=== PATIENT | female | born 1970 | race Caucasian/White ===

== ENCOUNTER 2019-06-09 13:04 | Emergency (ER) | payer SELFPAY ==
[2019-06-09 13:05] VITALS: BP 169/73; PULSE 82; RESP 20; TEMP 37.1; O2SAT 98; BMI 37.5
--- NOTE | 2019-06-09 13:12 | NURSING ---
NO OLD EKGS
--- NOTE | 2019-06-09 14:12 | EKG12_ITS ---
Test Reason : Blood Pressure : / mmHG Vent. Rate : 078 BPM Atrial Rate : 078 BPM P-R Int : 172 ms QRS Dur : 074 ms QT Int : 370 ms P-R-T Axes : 053 070 053 degrees QTc Int : 421 ms Normal sinus rhythm Normal ECG Confirmed by COREY VALDEZ, CECILIA ([id number]), editor book STEPHANIE THOMPSON ([id number]) on 06/12/2019 1:49:40 PM Referred By: REJI Confirmed By:MAXIMO NICOLE MD
--- NOTE | 2019-06-09 14:12 | ED.VIS.CHEST ---
History of Present Illness Chief Complaint: Chest Pain Informant: Patient Onset: Weeks - 1 Activity at onset: Rest Timing: Intermittent, Lasts - minutes Quality: Heaviness Location: Left Chest Current Severity: Gone Maximum Severity: Moderate Associated Symptoms: Dyspnea, Cough - Chronic, unchanged. Negative for: Nausea, Vomiting, Diaphoresis, Fever, Lightheadedness, Palpitations Narrative: Patient states she has been under a lot of stress this past week and has been having chest discomfort off and on. It is usually left chest but it moves around. It is nonpleuritic. She has also been having a market amount of epigastric discomfort that occurs as soon as she swallows food. She has had gastritis versus a stomach ulcer in the past but never required an EGD, in the past week Zantac is helping that but she is taking it inconsistently. She denies any leg pain, swelling, history of DVT or PE, recent travel or hospitalization or surgery. She had a heart attack in the past, she had one stent placed and is no longer needing Brilinta just aspirin, and states this was similar discomfort when she was having that. No radiation into the jaw, neck, back, arms. - Past Medical History (1) Coronary artery disease Status: Chronic (2) Hypertension Status: Suspected Past Medical History - Allergies and Home Meds Allergies/Adverse Reactions: Allergies No Known Allergies Allergy (Verified 06/09/19 13:10) Surgical History: angioplasty - Coronary stent x1 Smoking Status: Current every day smoker Drugs: None Review of Systems General: Denies: Chills, Fever, Sweats Eyes: Denies: Visual changes - bilaterally, Diplopia ENT: Denies: Rhinorrhea, Sore throat Cardiovascular: Reports: Chest pain. Denies: Palpitations Respiratory: Reports: Dyspnea. Denies: Cough, Dyspnea on exertion, Orthopnea Gastrointestinal: Reports: Abdominal pain. Denies: Nausea, Vomiting, Diarrhea, Melena, Hematochezia Genitourinary: Denies: Dysuria, Hematuria, Frequency Musculoskeletal: Denies: Neck pain, Back pain, Swelling, Extremity Pain Skin: Denies: Rash, Wounds Neurological: Denies: Headache, Weakness, Numbness Psych: Reports: Anxiety. Denies: Suicidal thoughts Physical Exam Vital Signs/Narrative: Vital Signs Temp Pulse Resp BP Pulse Ox 06/09/19 13:05 98.7 F 82 20 H 169/73 H 98 Inital Vital Signs reviewed: Yes General: Well nourished, Well developed, No Acute Distress Head: Normocephalic, Atraumatic Eyes: Perrl, EOMI ENT: Moist mucous membranes, No rhinorrhea Neck: Supple, Nontender, No lymphadenopathy, No JVD Cardiovascular: Regular rate, Regular rhythm, No murmurs, Normal S1, Normal S2. Negative for: Tachycardia Respiratory: No distress, CTA bilaterally, Chest nontender Abdomen: Soft, Nontender, Nondistended, Normal bowel sounds Back: Nontender, Normal Inspection. Negative for: CVA tenderness Extremities: Nontender, No edema. Negative for: Calf Tenderness Skin: Normal color, No rash Neurological: Alert, Oriented x3, Cranial nerves II-XII grossly intact, Normal Strength, Normal Sensation Psychological: Normal affect, Normal Mood Diagnostic/Tx/Re-eval Laboratory Tests 06/09/19 06/09/19 Range/Units 13:30 13:30 WBC 4.8 (4.4-11.0) K/mm3 RBC 4.02 L (4.2-5.4) M/mm3 Hgb 8.3 L (12.0-15.0) g/dL Hct 29.0 L (37-47) % MCV 72.1 L (81-99) fL MCH 20.6 L (27.0-32.0) pg MCHC 28.6 L (32-36) g/dL RDW Std Deviation 48.8 H (35.1-43.9) fl RDW Coeff of Estella 18.8 H (11.6-14.6) % Plt Count 278 (150-450) K/mm3 MPV 10.3 (6.2-12.0) fl Immature Gran % (Auto) 0.200 (0.0-0.9) % Neut % (Auto) 50.6 (47-70) % Lymph % (Auto) 33.2 (19-41) % Warrick % (Auto) 7.7 (0-10) % Eos % (Auto) 7.1 H (0-5) % Baso % (Auto) 1.2 H (0-1) % Absolute Neuts (auto) 2.4 (2.0-7.7) X10^3/uL Absolute Lymphs (auto) 1.60 (0.83-4.51) X10^3/uL Absolute Nucleated RBC 0.00 (0-5) 10^3/uL Nucleated RBC % 0 (0-5) % Sodium 141 (136-145) mmol/L Potassium 4.2 (3.5-5.1) mmol/L Chloride 105 (98-107) mmol/L Carbon Dioxide 27.0 (21.0-32.0) mmol/L Anion Gap 9 (5-15) BUN 12 (7-18) mg/dL Creatinine 0.72 (0.55-1.02) mg/dL Estim Creat Clear Calc 92.92 ml/min Est GFR (MDRD) Af Amer 112 (>60) mL/min Est GFR (MDRD) Non-Af 92 (>60) mL/min BUN/Creatinine Ratio 16.8 (10-20) RATIO Glucose 108 H (74-106) mg/dL Calcium 9.0 (8.5-10.1) mg/dL Troponin I < 0.015 (<0.045) ng/mL - Rhythm Strip Rhythm Strip: Sinus Rhythm Rate: 75 Ectopy: None - EKG Initial EKG Interpretation: Sinus Rhythm, No Acute Injury Pattern - Normal EKG. Normal axis. Treatment: - - Patient already took her aspirin this morning. No treatment given in the emergency department since the patient has been pain-free. GINO Risk: H/O CAD, ASA within 7 days Score: 2 - Medical Decision Making Work-up is unremarkable, it does show significant anemia, but it is very microcytic. She has not been taking iron for a while, even though she did in the past. Her BUN is not high, so I do not suspect she is having upper GI bleeding, especially since she has no melena or hematemesis. I recommend taking twice daily Zantac or daily PPI, iron supplementation, and following up with her doctor. Her cardiac enzymes are negative and her EKG is normal at this time, and I think it is safe that she discharged home with follow-up. She is comfortable with that plan. ED Disposition - Plan for ED Patient: Disposition: Home or Assisted Living Diagnosis: Chest pain, unspecified, Microcytic hypochromic anemia, Gastritis Instructions: CHEST PAIN, Uncertain Cause, ANEMIA, Iron Deficiency (Adult), GASTRITIS vs. ULCER Referrals: Meagan Weinstein NP-C [Primary Care Provider] - 3-5 Days
[2019-06-09 14:22] LABS: Absolute Neutrophil Count 2.4 X10^3/uL (2.0-7.7); Basophil# 0.06 X10^3/uL; Basophil% 1.2 % (0-1); Eosinophil# 0.34 X10^3/uL; Eosinophils% 7.1 % (0-5); Hemoglobin 8.3 g/dL (12.0-15.0); Lymphocyte % 33.2 % (19-41); Mean Corp Hgb Conc 28.6 g/dL (32-36); Mean Corpuscular Hgb 20.6 pg (27.0-32.0); Mean Corpuscular Volume 72.1 fL (81-99); Mean Platelet Vol. 10.3 fl (6.2-12.0); Monocyte# 0.37 X10^3/uL; Monocyte% 7.7 % (0-10); NRBC Flagged by Analyzer 0 % (0-5); Neutrophil # 2.44 X10^3/uL (2.7-7.7); Neutrophil % 50.6 % (47-70); Platelet Count 278 K/mm3 (150-450); RBC Distribution Width CV 18.8 % (11.6-14.6); RBC Distribution Width SD 48.8 fl (35.1-43.9); Red Blood Count 4.02 M/mm3 (4.2-5.4); White Blood Count 4.8 K/mm3 (4.4-11.0)
[2019-06-09 14:36] LABS: Anion Gap 9 (5-15); BUN 12 mg/dL (7-18); BUN/Creat Ratio 16.8 RATIO (10-20); Chloride 105 mmol/L (98-107); Creatinine, Serum 0.72 mg/dL (0.55-1.02); EST Glomerular Filtration Rate 92 mL/min (>60); Est Glom Filt Rate - Afr Amer 112 mL/min (>60); Estimated Creatinine Clearance 92.92 ml/min; Glucose 108 mg/dL (74-106); Potassium 4.2 mmol/L (3.5-5.1); Sodium Level 141 mmol/L (136-145)
[2019-06-09 14:37] VITALS: BP 114/54; PULSE 68; RESP 18
[2019-06-09 15:23] VITALS: BP 117/65; PULSE 68; RESP 18; O2SAT 98
== END 2019-06-09 15:24 | disposition home or self-care (01) ==
PROVIDERS: Emergency Provider Emergency Medicine; Family Provider Nurse Practitioner Family; PCP Nurse Practitioner Family
DX: R07.9 Chest pain, unspecified (principal); K29.70 Gastritis, unspecified, without bleeding; D50.9 Iron deficiency anemia, unspecified; I25.2 Old myocardial infarction; I25.10 Atherosclerotic heart disease of native coronary artery without angina pectoris; I10 Essential (primary) hypertension; F17.200 Nicotine dependence, unspecified, uncomplicated; Z95.5 Presence of coronary angioplasty implant and graft; Z79.82 Long term (current) use of aspirin
CPT/HCPCS: 80048; 84484; 85025; 93005; 99283; A4216

== ENCOUNTER 2021-03-28 13:47 | Observation (INO) | payer SELFPAY ==
[2021-03-28 13:50] VITALS: BP 137/71; PULSE 76; RESP 20; TEMP 36.9; O2SAT 96; BMI 42.4
--- NOTE | 2021-03-28 14:06 | EKG12_ITS ---
Test Reason : Blood Pressure : / mmHG Vent. Rate : 068 BPM Atrial Rate : 068 BPM P-R Int : 198 ms QRS Dur : 072 ms QT Int : 398 ms P-R-T Axes : 053 072 063 degrees QTc Int : 423 ms Normal sinus rhythm Normal ECG Confirmed by ELLYN VALDEZ, CLOTILDE ([id number]), movie editor STEPHANIE THOMPSON ([id number]) on 04/01/2021 9:29:24 AM Referred By: Confirmed By:CLOTILDE RAGLAND MD
--- NOTE | 2021-03-28 14:06 | RAD_ITS ---
STUDY: X-RAY CHEST REASON FOR EXAM: Female, 50 years old. Chest pain TECHNIQUE: Single AP portable view of the chest. COMPARISON: None. FINDINGS: EKG electrodes are seen. The lungs are clear and expanded. There is no demonstrated pleural abnormality. Normal size heart. Normal mediastinum and eileen. Normal visualized pulmonary arteries. Normal visualized aortic arch and descending thoracic aorta. Normal visualized thoracic spine. Normal visualized ribs, clavicles, and shoulders. There is no demonstrated abnormality of the visualized soft tissue structures of the upper abdomen. RAD/Chest 1 View (Portable) IMPRESSION: Normal x-ray examination of the chest. Electronically Signed: Daljit Canales MD at 14:25 EDT , Service support ,
--- NOTE | 2021-03-28 14:15 | EDS_ITS ---
HPI History of Present Illness Chief Complaint: Chest Pain Informant: patient Narrative Narrative: Patient presents with chest pain, back pain and shortness of breath. This is been ongoing for 2 days. She started having pain between her shoulder blades and pain in her left jaw area. She then developed some mild chest tightness. She was concerned because she felt the similar symptoms when she had a heart attack a few years ago. She takes a daily aspirin but is not on any other antiplatelet medications. She does have 1 stent placed in her heart. She denies any fevers or cough. No leg swelling. Currently she states that her symptoms are improved. She also had some lightheadedness and felt like she was going to pass out as well. [facility] Medical History Chest pain Hypothyroidism Myocardial infarct Home Medications aspirin 81 mg PO DAILY@0800 06/09/19 [History Last Taken Unknown] ranitidine HCl 150 mg PO DAILY 06/09/19 [History Last Taken Unknown] Allergy/AdvReac Type Severity Reaction Status Date / Time No Known Allergies Allergy Verified 03/28/21 13:49 Surgical History History of coronary artery stent placement Social History Smoking Status: Current every day smoker ROS ROS ED Constitutional Constitutional ED: Denies chills or fever(s) Eyes Eyes: Denies blurry vision, change in vision or diplopia ENT ENT ED: Denies ear pain, rhinorrhea or sore throat Cardiovascular Cardiovascular: Reports chest pain Respiratory/Chest Respiratory/Chest: Reports dyspnea Gastrointestinal Gastrointestinal: Denies abdominal pain, diarrhea, nausea or vomiting Genitourinary Genitourinary ED: Denies dysuria, hematuria or urinary frequency Musculoskeletal Musculoskeletal: Reports back pain Integumentary Denies change in pigmentation or rash Neurologic Neurologic: Denies headache(s), numbness or weakness Psychiatric Psychiatric: Denies anxiety or depression Endocrine Endocrinology: Denies polydipsia or polyuria EXAM Physical Exam Const Vital Signs: 03/28/21 13:50 03/28/21 13:52 03/28/21 14:29 Temperature 98.5 F Temperature Source Oral Pulse Rate 76 Respiratory Rate 20 H Respiratory Effort Short of Breath Respiratory Pattern Normal Blood Pressure 137/71 H Blood Pressure Mean 93 Pulse Ox 96 Oxygen Delivery Method Room Air Nasal Cannula Positive well nourished and well developed General Appearance ED: well developed and NAD HEENT Reports moist mucous membranes normocephalic and atraumatic; Negative for tenderness Eyes PERRL and EOMs intact bilaterally Neck supple and no JVD Chest Wall Chest: Negative for tenderness Resp normal respiratory effort and clear to auscultation bilaterally Effort and Inspection: Negative for respiratory distress Cardio regular rate, regular rhythm and no murmurs Rate: regular rate Rhythm: regular rhythm GI soft to palpation, non-tender and non-distended Palpation: soft Back/Spine no CVA tenderness and no thoracic nor lumbar tenderness Cervical Spine: Negative for cervical spine tenderness Extremity normal to inspection and full ROM General Extremety ED: Negative for tenderness Neuro oriented x3, CN's II-XII intact bilaterally and no sensory deficits noted Sensorium / Orientation: awake and alert Motor Exam: strength 5/5 throughout Psych mental status grossly normal Skin no rashes or lesions noted Heart Score History: Moderately Suspicious ECG: Normal Age: >45 - <65 years Risk Factors: >/= 3 Risk Factors or History of CAD Troponin: </= Normal Limit Score: 4 MDM MDM MDM Narrative Medical decision making narrative: The patient's EKG was sinus rhythm with no ischemic changes. Laboratory studies are unremarkable except for her troponin is 0.023. This is still within the normal range but not completely negative like her last blood draw. With her history, her heart score is 4. I discussed with the hospitalist and we will leave the patient for further evaluation Lab Data Attestation: I reviewed the patient's lab results. Labs: Laboratory Results - last 24 hr 03/28/21 03/28/21 13:55 13:55 WBC 5.7 RBC 5.68 H Hgb 14.8 Hct 47.9 H MCV 84.3 MCH 26.1 L MCHC 30.9 L RDW Std Deviation 46.5 H RDW Coeff of Estella 15.1 H Plt Count 274 MPV 9.9 Immature Gran % (Auto) 0.200 Neut % (Auto) 61.5 Lymph % (Auto) 24.4 Archer % (Auto) 6.9 Eos % (Auto) 5.8 H Baso % (Auto) 1.2 H Absolute Neuts (auto) 3.5 Absolute Lymphs (auto) 1.38 Nucleated RBC % 0 Sodium 136 Potassium 4.4 Chloride 105 Carbon Dioxide 28.0 Anion Gap 3 L BUN 14 Creatinine 0.64 Estim Creat Clear Calc 90.81 Est GFR (MDRD) Af Amer 126 Est GFR (MDRD) Non-Af 105 BUN/Creatinine Ratio 21.9 H Glucose 102 Calcium 9.2 Troponin I 0.023 Radiography Chest X-Ray - ED: 1 View, Read by ED Physician, Read by Radiologist and No Acute Disease Diagnostic Testing: Radiology Impression Chest X-Ray 03/28/21 14:06 IMPRESSION: Normal x-ray examination of the chest. Electronically Signed: Daljit Canales MD at 14:25 EDT , Service support , EKG Initial EKG: Comments: Normal sinus rhythm with rate of 68. No ST changes noted. QTc 423, TX interval 198 Discharge Plan Triage Chief Complaint: Chest Pain ED Provider: Deuce Marie Dx/Rx/DC Orders Clinical Impression: Chest pain Prescriptions: No Action ranitidine HCl 150 MG tablet 150 mg PO DAILY RF: 0 aspirin 81 MG tablet,chewable 81 mg PO DAILY@0800 RF: 0 Primary Care Provider: Care Physician,No Primary Referrals: Care Physician,No Primary [Primary Care Provider] - Disposition Disposition: Acute Care [facility]
[2021-03-28 14:28] LABS: Absolute Lymphocyte Count 1.38 X10^3/uL (0.83-4.51); Absolute Neutrophil Count 3.5 X10^3/uL (2.0-7.7); Basophil# 0.07 X10^3/uL; Basophil% 1.2 % (0-1); Eosinophil# 0.33 X10^3/uL; Eosinophils% 5.8 % (0-5); Hematocrit 47.9 % (37-47); Hemoglobin 14.8 g/dL (12.0-15.0); Lymphocyte # 1.38 X10^3/ul (0.83-4.51); Lymphocyte % 24.4 % (19-41); Mean Corp Hgb Conc 30.9 g/dL (32-36); Mean Corpuscular Hgb 26.1 pg (27.0-32.0); Mean Corpuscular Volume 84.3 fL (81-99); Mean Platelet Vol. 9.9 fl (6.2-12.0); Monocyte# 0.39 X10^3/uL; Monocyte% 6.9 % (0-10); NRBC Flagged by Analyzer 0 % (0-5); Neutrophil # 3.47 X10^3/uL (2.7-7.7); Neutrophil % 61.5 % (47-70); Platelet Count 274 K/mm3 (150-450); RBC Distribution Width CV 15.1 % (11.6-14.6); RBC Distribution Width SD 46.5 fl (35.1-43.9); Red Blood Count 5.68 M/mm3 (4.2-5.4); White Blood Count 5.7 K/mm3 (4.4-11.0)
[2021-03-28] MEDS: Aspirin 81 MG TAB.CHEW 324 MG PO (14:32)
[2021-03-28 14:44] LABS: Anion Gap 3 (5-15); BUN 14 mg/dL (7-18); BUN/Creat Ratio 21.9 RATIO (10-20); Calcium,Total 9.2 mg/dL (8.5-10.1); Chloride 105 mmol/L (98-107); Creatinine, Serum 0.64 mg/dL (0.55-1.02); EST Glomerular Filtration Rate 105 mL/min (>60); Est Glom Filt Rate - Afr Amer 126 mL/min (>60); Estimated Creatinine Clearance 90.81 ml/min; Glucose 102 mg/dL (74-106); Potassium 4.4 mmol/L (3.5-5.1); Sodium Level 136 mmol/L (136-145)
[2021-03-28 15:06] VITALS: BP 118/63; PULSE 89; RESP 16; O2SAT 98
--- NOTE | 2021-03-28 15:10 | PCM.HP.STD ---
[facility] - General General Date of Admission: 03/28/21 Chief Complaint: Chest pain [facility] Narrative BRANDI MCDONALD, is a 50 F with past medical history as mentioned below presented to the medicine because of fatigue and chest pain. Patient stated that her main complaint is fatigue and tiredness, started over the last couple of days as she has been undergoing lots of stress at workplace. At this time,, she started having chest pain, described as chest heaviness, mild, intermittent, not radiating, and no aggravating or relieving factors. Patient was almost tearful during the encounter. Currently, she has no chest pain. In the emergency department, her vital signs are stable. Her routine blood work was unremarkable. Chest x-ray showed no acute findings. EKG revealed normal sinus rhythm, normal CA interval, normal QRS, no acute ischemic changes. Troponin was negative. She is being admitted for chest pain for evaluation. [facility] Medical History Chest pain Hypothyroidism Kidney stones Myocardial infarct Smoker Home Medications aspirin 81 mg PO DAILY@0800 06/09/19 [History Last Taken Unknown] Allergy/AdvReac Type Severity Reaction Status Date / Time No Known Allergies Allergy Verified 03/28/21 13:49 no significant family history Surgical History (Updated 03/28/21 @ 15:[address] Sandy Luis MD) History of cholecystectomy History of coronary artery stent placement Social History (Updated 03/28/21 @ 15:[address] Sandy Luis MD) Smoking Status: Current every day smoker details: Denied drinking alcohol. ROS Constitutional Constitutional: Denies anorexia, chills, fatigue, fever(s) or malaise Eyes Eyes: Denies blurry vision, change in eye color, change in vision, double vision or eye pain ENT HEENT: Denies ear pain, epistaxis, headache(s), nasal congestion, post nasal drip or sore throat Cardiovascular Cardiovascular: Reports other Details: Chest discomfort. ; Denies chest pain, dyspnea on exertion, edema, lightheadedness, orthopnea, palpitations, paroxysmal nocturnal dyspnea or syncope Respiratory/Chest Respiratory/Chest: Denies cough, dyspnea, hemoptysis, productive cough, shortness of breath at rest, shortness of breath with exertion or wheezing Gastrointestinal Gastrointestinal: Denies abdominal pain, constipation, diarrhea, hematemesis, hematochezia, melena, nausea or vomiting Genitourinary Genitourinary: Denies burning urination, dysuria, hematuria, urinary hesitancy or urinary urgency Musculoskeletal Musculoskeletal: Denies arthralgias, back pain, joint pain, joint swelling, myalgias or neck pain Neurologic Neurologic: Denies confusion, dizziness, focal weakness, headache(s), numbness, paresthesias, seizures, tingling or tremor(s) Psychiatric Psychiatric: Denies anxiety, depression, homicidal ideation or suicidal ideation Endocrine Endocrinology: Denies change in body appearance, cold intolerance, heat intolerance, polydipsia or polyuria Hematologic/Lymphatic Hematologic/Lymphatic: Reports other; Denies easy bleeding, easy bruising or lymphadenopathy Allergic/Immunologic Allergic/Immunologic: Denies itchy eyes, rhinitis, throat swelling, tongue swelling, hives, urticaria or wheezing Vital Signs Vital Signs Vital Signs: 03/28/21 13:50 03/28/21 13:52 03/28/21 14:29 Temperature 98.5 F Temperature Source Oral Pulse Rate 76 Respiratory Rate 20 H Respiratory Effort Short of Breath Respiratory Pattern Normal Blood Pressure 137/71 H Blood Pressure Mean 93 Pulse Ox 96 Oxygen Delivery Method Room Air Nasal Cannula 03/28/21 15:06 Temperature Temperature Source Pulse Rate 89 Respiratory Rate 16 Respiratory Effort Respiratory Pattern Blood Pressure 118/63 Blood Pressure Mean 81 Pulse Ox 98 Oxygen Delivery Method Room Air Physical Exam Const alert, oriented x3, no apparent distress and no limitations General Appearance: cooperative, comfortable and well kempt HEENT normocephalic, head/scalp atraumatic and moist oral mucous membranes Head and Scalp: normocephalic and atraumatic Eyes PERRL, EOMs intact bilaterally, conjunctivae normal and no scleral icterus General Eye: normal appearance of both eyes Periorbital: periorbital findings normal Neck no lymphadenopathy, supple, no meningeal signs, no JVD and no carotid bruits General: trachea midline Thyroid: thyroid normal Resp normal respiratory effort, normal air movement and clear to auscultation bilaterally Auscultation: Negative for crackles, rales, rhonchi or wheezes Cardio regular rate, regular rhythm, S1 normal heart sound, S2 normal heart sound, no murmurs and no JVD Peripheral Pulses: pulses 2+ throughout GI normal to inspection, nondistended, normoactive bowel sounds, soft to palpation, non-tender and non-distended; Negative for hepatosplenomegaly Auscultation: normoactive bowel sounds Extremity normal to inspection, full ROM and no clubbing, cyanosis or edema Skin no rashes or lesions noted, no wounds and no petechiae Neuro oriented x3, CN's II-XII intact bilaterally and moves all extremities Sensorium / Orientation: alert Speech: speech normal Motor Exam: strength 5/5 throughout Psych mental status grossly normal, affect normal and denies hallucinations Lab / Micro Data Result Diagrams: 03/28/21 13:55 03/28/21 13:55 Labs: Laboratory Results - last 24 hr 03/28/21 03/28/21 13:55 13:55 WBC 5.7 RBC 5.68 H Hgb 14.8 Hct 47.9 H MCV 84.3 MCH 26.1 L MCHC 30.9 L RDW Std Deviation 46.5 H RDW Coeff of Estella 15.1 H Plt Count 274 MPV 9.9 Immature Gran % (Auto) 0.200 Neut % (Auto) 61.5 Lymph % (Auto) 24.4 [place] % (Auto) 6.9 Eos % (Auto) 5.8 H Baso % (Auto) 1.2 H Absolute Neuts (auto) 3.5 Absolute Lymphs (auto) 1.38 Nucleated RBC % 0 Sodium 136 Potassium 4.4 Chloride 105 Carbon Dioxide 28.0 Anion Gap 3 L BUN 14 Creatinine 0.64 Estim Creat Clear Calc 90.81 Est GFR (MDRD) Af Amer 126 Est GFR (MDRD) Non-Af 105 BUN/Creatinine Ratio 21.9 H Glucose 102 Calcium 9.2 Troponin I 0.023 Radiology Impression Chest X-Ray 03/28/21 14:06 IMPRESSION: Normal x-ray examination of the chest. Electronically Signed: Daljit Canales MD at 14:25 EDT , Service support , Assessment & Plan Assessment/Plan (1) Coronary artery disease: (2) Hypertension: (3) Chest pain: (4) Hyperlipidemia: PLAN: This is a 50 years old female patient presented to the emergency room because of chest pain and fatigue and she is being admitted for evaluation. #1 atypical chest pain: With past history of CAD status post stents x1, current smoker. Initial EKG and troponin was unremarkable. Chest x-ray showed no acute findings. Plan: Admit to PCU for observation, cardiac monitoring, serial cardiac enzymes, start baby aspirin, check lipid profile, nuclear stress test tomorrow morning if cardiac enzymes are negative, sublingual nitro as needed, Tylenol as needed, Zofran as needed. #2 hypertension: Patient mentioned that she was taken off blood pressure medications in 2017 by her PCP because her blood pressure has been stable, complete blood pressure stable. Plan to monitor. #3 hyperlipidemia: Again, patient mentioned that she was taken off cholesterol medicine in 2017 by her PCP. We will check her lipid profile. #4 DVT prophylaxis: Low-risk patient, no prophylaxis needed. This note was generated with [employer] dictation software. It may contain incorrect words, spelling, and punctuation that were not noted in checking the note before signing. Visit Charges OBSV E&M: 86332 Initial observation care L2
[2021-03-28 15:28] VITALS: BP 117/71; PULSE 78; RESP 16; TEMP 36.6; O2SAT 98
[2021-03-28 15:31] VITALS: BMI 38.1
[2021-03-28 15:34] VITALS: BP 124/64; PULSE 63; PULSE 70; RESP 15; TEMP 36.5; O2SAT 95
--- NOTE | 2021-03-28 15:44 | EKG12_ITS ---
Test Reason : CP REPEAT Blood Pressure : / mmHG Vent. Rate : 060 BPM Atrial Rate : 060 BPM P-R Int : 218 ms QRS Dur : 072 ms QT Int : 424 ms P-R-T Axes : 052 078 074 degrees QTc Int : 424 ms Sinus rhythm with 1st degree A-V block Otherwise normal ECG When compared with ECG of 28-MAR-2021 13:54, MANUAL COMPARISON REQUIRED, DATA IS UNCONFIRMED Confirmed by ELLYN VALDEZ, CLOTILDE ([id number]), production editor STEPHANIE THOMPSON ([id number]) on 04/01/2021 9:44:42 AM Referred By: LUCIO Confirmed By:CLOTILDE RAGLAND MD
[2021-03-28 16:16] LABS: Cholesterol 232 mg/dL (200); High Density Lipoprotein 44 mg/dL; Triglycerides 164 mg/dL; Very Low Density Lipoprotein 33 mg/dL (5-40)
[2021-03-28 18:59] VITALS: PULSE 62
[2021-03-28 21:30] VITALS: BP 131/66; PULSE 60; RESP 18; TEMP 36.6; O2SAT 95
[2021-03-29] VITALS (10 sets, daily range): BP systolic 120–134; BP diastolic 53–76; PULSE 60–76; RESP 16–18; TEMP 36.3–36.7; O2SAT 90–96
--- NOTE | 2021-03-29 05:55 | EKG12_ITS ---
Test Reason : AM EKG Blood Pressure : / mmHG Vent. Rate : 063 BPM Atrial Rate : 063 BPM P-R Int : 230 ms QRS Dur : 070 ms QT Int : 396 ms P-R-T Axes : 061 072 087 degrees QTc Int : 405 ms Sinus rhythm with sinus arrhythmia with 1st degree A-V block Otherwise normal ECG Confirmed by KOLE VALDEZ, HARMAN ([id number]), movie editor STEPHANIE THOMPSON ([id number]) on 04/02/2021 10:21:47 AM Referred By: LIBBY Confirmed By:HARMAN SHARIF MD
[2021-03-29] MEDS: Aspirin 81 MG TAB.CHEW PO (06:25)
--- NOTE | 2021-03-29 11:34 | STRESSREP ---
Stress Test Report Pharmacologic myocardial perfusion stress test. Indication: 50-year-old female who presented with symptoms of a fatigue and chest pain this has been related to lots of stress at workplace patient had a history of myocardial infarction history for smoker. Stress protocol: Resting EKG demonstrates. Normal sinus rhythm. With age indeterminant old anterior CT 0.4 mg of regadenoson was infused per usual protocol followed by rapid intravenous saline flush injection continuous EKG monitoring was performed. The maximum heart rate attained was 86 bpm which was 50% % of maximum predicted heart . Stress EKG showed[, no significant change from the resting EKG, with maximum heart rate of 86 bpm. Arrhythmia: No arrhythmia demonstrated Symptoms: Patient had no symptoms of chest pain Blood pressure at rest: [112/62 mmHg blood pressure at the end of stress: 122/64 mmHg] Myocardial perfusion protocol. [14.8 mCi ]of Technetium 99m Sestamibi was injected at rest. [ 0.4 mg ]of Regadenoson was infused per usual protocol peak infusion[45 mCi ]of Technetium 99m sestamibi was injected. Stress images were obtained stress and rest images were reconstructed and compared in the short axis vertical and horizontal long axis. Gated images were also obtained Perfusion SPECT analysis: Review of the images demonstrate reduced uptake of sestamibi at rest and with maximal stress, consistent with prior anterior CT with mild anterior vinh-infarct reversible ischemia. Gated SPECT analysis: The gated ejection fraction is [73 %]. Normal LV wall motion and normal LV systolic function Conclusion: Prior anterior CT as described with mild vinh-infarct reversible ischemia Preserved LV systolic function. Sarwat Finch MD,FACC,[facility]
--- NOTE | 2021-03-29 13:09 | PCM.CONS.C ---
Assessment & Plan Assessment/Plan (1) Chest pain: (2) Hyperlipidemia: (3) Coronary artery disease: (4) Hypertension: PLAN: 50-year-old patient with history of CAD Had prior non-ST elevation MS and seen at the [facility] where she underwent cardiac catheterization by Dr. Woodward Bare-metal stent 4.5 x 20 mm Veriflex. 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 Cardiac exam essentially normal. EKG showed underlying normal sinus rhythm with age-indeterminate anterior MS and poor R wave progression across the chest. Cardiac biomarkers was high sensitive troponins are negative. Evaluation of Lexiscan sestamibi/stress test showed evidence of a small area of anterior infarction with vinh-infarct ischemia and preserved LV systolic function with ejection fraction of around 73% Plan and recommendations; 1. Continue current treatment 2. 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 HPI Consult Data Date of Consult: 03/29/21 HPI Narrative Reason for Consultation: Patient with chest pain, history of anterior MS SP PCI stent 2013 with posi HPI Narrative: BRANDI MCDONALD, is a 50 F who presents [facility] Medical History Chest pain Hypothyroidism Kidney stones Myocardial infarct Smoker Home Medications aspirin 81 mg PO DAILY@0800 06/09/19 [History Last Taken 03/28/21] Allergy/AdvReac Type Severity Reaction Status Date / Time No Known Allergies Allergy Verified 03/28/21 13:49 Surgical History (Updated 03/28/21 @ 15:18 by Roxane Fatima) Cataract extraction status of right eye History of cholecystectomy History of coronary artery stent placement Hx of tubal ligation Social History (Updated 03/28/21 @ 15:[address] Sandy Luis MD) Smoking Status: Current every day smoker details: Denied drinking alcohol. ROS Constitutional Constitutional: Denies anorexia, chills, fatigue, fever(s) or malaise Eyes Eyes: Denies blurry vision, change in eye color, change in vision, diplopia, double vision or eye pain ENT HEENT: Denies ear pain, epistaxis, headache(s), nasal congestion, post nasal drip, rhinorrhea or sore throat Cardiovascular Cardiovascular: Reports other Details: Chest discomfort. ; Denies chest pain, dyspnea on exertion, edema, lightheadedness, orthopnea, palpitations, paroxysmal nocturnal dyspnea or syncope Respiratory/Chest Respiratory/Chest: Denies cough, dyspnea, hemoptysis, productive cough, shortness of breath at rest, shortness of breath with exertion or wheezing Gastrointestinal Gastrointestinal: Denies abdominal pain, constipation, diarrhea, hematemesis, hematochezia, melena, nausea or vomiting Genitourinary Genitourinary: Denies burning urination, dysuria, hematuria, urinary frequency, urinary hesitancy or urinary urgency Musculoskeletal Musculoskeletal: Denies arthralgias, back pain, joint pain, joint swelling, myalgias or neck pain Integumentary Integumentary: Denies change in pigmentation or rash Neurologic Neurologic: Denies confusion, dizziness, focal weakness, headache(s), numbness, paresthesias, seizures, tingling, tremor(s) or weakness Psychiatric Psychiatric: Denies anxiety, depression, homicidal ideation or suicidal ideation Endocrine Endocrinology: Denies change in body appearance, cold intolerance, heat intolerance, polydipsia or polyuria Hematologic/Lymphatic Hematologic/Lymphatic: Reports other; Denies easy bleeding, easy bruising or lymphadenopathy Allergic/Immunologic Allergic/Immunologic: Denies itchy eyes, rhinitis, throat swelling, tongue swelling, hives, urticaria or wheezing Physical Exam Const alert and oriented x3 Orientation / Consciousness: awake HEENT normocephalic and hearing grossly normal bilaterally Eyes PERRL Neck supple Chest inspection of chest normal Resp normal respiratory effort and clear to auscultation bilaterally Cardio regular rate, regular rhythm, S1 normal heart sound, S2 normal heart sound, no murmurs, no rub, no gallops, no clicks and no JVD Palpation: normal PMI Rate: regular rate Peripheral Pulses: pulses 2+ throughout and radial pulses present GI normal to inspection, nondistended, normoactive bowel sounds Extremity normal to inspection Skin no rashes or lesions noted and no jaundice
--- NOTE | 2021-03-29 14:27 | PCM.PN.HOSP ---
Subjective Subjective Patient was seen and examined. She complains of some slight substernal discomfort but not pain. She is otherwise stable. Discussed with cardiology, her stress test is equivocal, she will need a cardiac cath on Wednesday Objective Data Objective Data Vital Signs: Vital Signs Temp Pulse Resp BP Pulse Ox 97.8 F 63 16 120/59 L 96 03/29/21 10:35 03/29/21 10:35 03/29/21 10:35 03/29/21 10:35 03/29/21 10:35 Oxygen Delivery Method Room Air Weight: 110.5 kg Body Mass Index (BMI) 38.1 Intake & Output: Intake and Output for Last 24 Hours 03/27/21 03/28/21 03/29/21 23:59 23:59 23:59 Intake Total 240 / 540 700 / 700 Balance 240 / 540 700 / 700 Lab / Micro Data Result Diagrams: 03/28/21 13:55 03/28/21 13:55 Labs: Laboratory Results - last 24 hr 03/28/21 03/28/21 03/28/21 13:55 13:55 13:55 WBC 5.7 RBC 5.68 H Hgb 14.8 Hct 47.9 H MCV 84.3 MCH 26.1 L MCHC 30.9 L RDW Std Deviation 46.5 H RDW Coeff of Estella 15.1 H Plt Count 274 MPV 9.9 Immature Gran % (Auto) 0.200 Neut % (Auto) 61.5 Lymph % (Auto) 24.4 [place] % (Auto) 6.9 Eos % (Auto) 5.8 H Baso % (Auto) 1.2 H Absolute Neuts (auto) 3.5 Absolute Lymphs (auto) 1.38 Nucleated RBC % 0 Sodium 136 Potassium 4.4 Chloride 105 Carbon Dioxide 28.0 Anion Gap 3 L BUN 14 Creatinine 0.64 Estim Creat Clear Calc 90.81 Est GFR (MDRD) Af Amer 126 Est GFR (MDRD) Non-Af 105 BUN/Creatinine Ratio 21.9 H Glucose 102 Calcium 9.2 Troponin I 0.023 Triglycerides 164 Cholesterol 232 H LDL Cholesterol 155 H VLDL Cholesterol 33 HDL Cholesterol 44 03/28/21 03/28/21 16:28 19:35 WBC RBC Hgb Hct MCV MCH MCHC RDW Std Deviation RDW Coeff of Estella Plt Count MPV Immature Gran % (Auto) Neut % (Auto) Lymph % (Auto) [place] % (Auto) Eos % (Auto) Baso % (Auto) Absolute Neuts (auto) Absolute Lymphs (auto) Nucleated RBC % Sodium Potassium Chloride Carbon Dioxide Anion Gap BUN Creatinine Estim Creat Clear Calc Est GFR (MDRD) Af Amer Est GFR (MDRD) Non-Af BUN/Creatinine Ratio Glucose Calcium Troponin I 0.018 0.018 Triglycerides Cholesterol LDL Cholesterol VLDL Cholesterol HDL Cholesterol Physical Exam Const alert, oriented x3, no apparent distress and no limitations General Appearance: cooperative, comfortable and well kempt HEENT normocephalic, head/scalp atraumatic and moist oral mucous membranes Eyes PERRL, EOMs intact bilaterally, conjunctivae normal and no scleral icterus General Eye: normal appearance of both eyes Periorbital: periorbital findings normal Neck no lymphadenopathy, supple, no meningeal signs, no JVD and no carotid bruits General: trachea midline Thyroid: thyroid normal Resp normal respiratory effort, normal air movement and clear to auscultation bilaterally Auscultation: Negative for crackles, rales, rhonchi or wheezes Cardio regular rate, regular rhythm, S1 normal heart sound, S2 normal heart sound, no murmurs and no JVD Peripheral Pulses: pulses 2+ throughout GI normal to inspection, nondistended, normoactive bowel sounds, soft to palpation, non-tender and non-distended; Negative for hepatosplenomegaly Auscultation: normoactive bowel sounds Extremity normal to inspection, full ROM and no clubbing, cyanosis or edema Skin no rashes or lesions noted, no wounds and no petechiae Neuro oriented x3, CN's II-XII intact bilaterally and moves all extremities Sensorium / Orientation: alert Speech: speech normal Motor Exam: strength 5/5 throughout Psych mental status grossly normal, affect normal and denies hallucinations Assessment & Plan Assessment/Plan (1) Coronary artery disease: (2) Hypertension: (3) Chest pain: (4) Hyperlipidemia: PLAN: 1. Acute chest pain, atypical, history of CAD status post stents, chronic smoker Stress test today has been equivocal; cardiac cath recommended Continue on aspirin, statin 2. Hypertension, controlled, monitor of blood pressure medications 3.Hyperlipidemia, would restart statin as her lipids are uncontrolled Visit Charges OBSV E&M: 89946 Subsequent observation care L3
--- NOTE | 2021-03-29 17:42 | CM.ED ---
FLORA note: Referral source:volunteer services director reason: Patient has financial questions. SW received call from patient's RN stating patient has financial questions. SW went to patient's room and met with patient. She reported her started a job at [employer] in November and did not enroll her on it as it cost $400+. Patient said that her can enroll her now but she questioned how far the lookback would be for the [employer]. SW spoke to registration. They advised that patient's needs to speak to Human Resources and explain is in the hospital and can she get on insurance and for how far back will they cover. Patient verbalized understanding and said she will have her call on Wednesday. Patient reports she makes too much money for Medicaid. RN updated. Sully CARROLL
[2021-03-29] MEDS: Atorvastatin Calcium 40 MG Tablet PO (21:08)
[2021-03-30] VITALS (9 sets, daily range): BP systolic 111–144; BP diastolic 66–71; PULSE 53–70; RESP 16–18; TEMP 36.4–36.7; O2SAT 91–96
[2021-03-30 06:37] LABS: Absolute Lymphocyte Count 1.65 X10^3/uL (0.83-4.51); Absolute Neutrophil Count 2.9 X10^3/uL (2.0-7.7); Basophil# 0.06 X10^3/uL; Basophil% 1.1 % (0-1); Eosinophil# 0.33 X10^3/uL; Eosinophils% 6.1 % (0-5); Hematocrit 44.5 % (37-47); Hemoglobin 14.2 g/dL (12.0-15.0); Lymphocyte # 1.65 X10^3/ul (0.83-4.51); Lymphocyte % 30.4 % (19-41); Mean Corp Hgb Conc 31.9 g/dL (32-36); Mean Corpuscular Hgb 27.7 pg (27.0-32.0); Mean Corpuscular Volume 86.7 fL (81-99); Mean Platelet Vol. 9.9 fl (6.2-12.0); Monocyte# 0.45 X10^3/uL; Monocyte% 8.3 % (0-10); NRBC Flagged by Analyzer 0 % (0-5); Neutrophil # 2.92 X10^3/uL (2.7-7.7); Neutrophil % 53.9 % (47-70); Platelet Count 236 K/mm3 (150-450); RBC Distribution Width CV 15.1 % (11.6-14.6); RBC Distribution Width SD 48.5 fl (35.1-43.9); Red Blood Count 5.13 M/mm3 (4.2-5.4); White Blood Count 5.4 K/mm3 (4.4-11.0)
[2021-03-30 07:10] LABS: ALB/GLOB Ratio 0.8 RATIO (0.9-2.4); AST(SGOT) 17 U/L (15-37); Alanine Aminotransfer ALT/SGPT 25 U/L (13-56); Albumin, Serum 3.2 g/dL (3.2-5.0); Alkaline Phosphatase 99 U/L (45-117); Anion Gap 6 (5-15); BUN 17 mg/dL (7-18); BUN/Creat Ratio 27.1 RATIO (10-20); Calcium,Total 8.3 mg/dL (8.5-10.1); Chloride 108 mmol/L (98-107); Creatinine, Serum 0.63 mg/dL (0.55-1.02); EST Glomerular Filtration Rate 107 mL/min (>60); Est Glom Filt Rate - Afr Amer 129 mL/min (>60); Estimated Creatinine Clearance 103.89 ml/min; Globulin 4.2 g/dL (2.2-4.2); Glucose 103 mg/dL (74-106); Protein, Total 7.4 g/dL (6.4-8.2); Sodium Level 138 mmol/L (136-145)
[2021-03-30] MEDS: Aspirin 81 MG TAB.CHEW PO (07:58)
--- NOTE | 2021-03-30 11:48 | PCM.PN.CARD ---
Subjective Subjective Patient seen and evaluated today she had no symptoms of chest pain. Objective Data Vital Signs: Vital Signs Temp Pulse Resp BP Pulse Ox 97.6 F L 67 18 111/67 93 03/30/21 09:10 03/30/21 09:10 03/30/21 09:10 03/30/21 09:10 03/30/21 09:10 Oxygen Delivery Method Room Air Weight: 243 lb 9.773 oz Body Mass Index (BMI) 38.1 Intake & Output: Intake and Output for Last 24 Hours 03/28/21 03/29/21 03/30/21 23:59 23:59 23:59 Intake Total 240 / 540 1660 / 1660 0 / 0 Balance 240 / 540 1660 / 1660 0 / 0 Lab / Micro Data Result Diagrams: 03/30/21 06:04 03/30/21 06:04 Labs: Laboratory Results - last 24 hr 03/30/21 03/30/21 06:04 06:04 WBC 5.4 RBC 5.13 Hgb 14.2 Hct 44.5 MCV 86.7 MCH 27.7 MCHC 31.9 L RDW Std Deviation 48.5 H RDW Coeff of Estella 15.1 H Plt Count 236 MPV 9.9 Immature Gran % (Auto) 0.200 Neut % (Auto) 53.9 Lymph % (Auto) 30.4 [place] % (Auto) 8.3 Eos % (Auto) 6.1 H Baso % (Auto) 1.1 H Absolute Neuts (auto) 2.9 Absolute Lymphs (auto) 1.65 Nucleated RBC % 0 Sodium 138 Potassium 4.0 Chloride 108 H Carbon Dioxide 24.0 Anion Gap 6 BUN 17 Creatinine 0.63 Estim Creat Clear Calc 103.89 Est GFR (MDRD) Af Amer 129 Est GFR (MDRD) Non-Af 107 BUN/Creatinine Ratio 27.1 H Glucose 103 Calcium 8.3 L Total Bilirubin 0.40 AST 17 ALT 25 Alkaline Phosphatase 99 Total Protein 7.4 Albumin 3.2 Globulin 4.2 Albumin/Globulin Ratio 0.8 L Cardiology Labs/Tests 03/30/21 06:04: WBC 5.4, RBC 5.13, Hgb 14.2, Hct 44.5, MCV 86.7, MCH 27.7, MCHC 31.9 L, Plt Count 236, MPV 9.9, Immature Gran % (Auto) 0.200, Neut % (Auto) 53.9, Lymph % (Auto) 30.4, [place] % (Auto) 8.3, Eos % (Auto) 6.1 H, Baso % (Auto) 1.1 H, Absolute Neuts (auto) 2.9, Nucleated RBC % 0 03/30/21 06:04: Sodium 138, Potassium 4.0, Chloride 108 H, Carbon Dioxide 24.0, Anion Gap 6, BUN 17, Creatinine 0.63, Est GFR (MDRD) Af Amer 129, Est GFR (MDRD) Non-Af 107, BUN/Creatinine Ratio 27.1 H, Glucose 103, Calcium 8.3 L, Total Bilirubin 0.40 Rhythm: EKG: ECHO: Stress Test: Cardiac Cath: PCI: CT Surgery: Holter monitor: EPS: PPM: CXR: Chest CT Scan: Physical Exam Narrative Bedside cardiac evaluation and examination Review of the cardiac telemetry showed underlying normal sinus rhythm S1-S2 is regular there is no murmur There is no pericardial rub or gallop Chest examination clear to auscultation. Examination abdomen is soft Examination lower extremity no clubbing no cyanosis normal extremity edema Logic examination there is no focal neurological deficit. 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 Patient currently on dual antiplatelet therapy will continue Plavix and aspirin 2. No active chest pain 3. To proceed with cardiac catheterization tomorrow 4. Risk-benefit of the procedure explained detail to the patient (2) Hypertension: (3) Chest pain: (4) Hyperlipidemia:
--- NOTE | 2021-03-30 15:35 | PN.HOSP_ITS ---
Subjective Subjective Patient was seen and examined. She complains of congestion and believes is due to her allergies. She usually takes Claritin at home. Denied any chest pain. She is waiting on cardiac cath in a.m. Objective Data Objective Data Vital Signs: Vital Signs Temp Pulse Resp BP Pulse Ox 98.0 F 54 L 16 144/71 H 96 03/30/21 15:10 03/30/21 15:10 03/30/21 15:10 03/30/21 15:10 03/30/21 15:10 Oxygen Delivery Method Room Air Weight: 110.5 kg Body Mass Index (BMI) 38.1 Intake & Output: Intake and Output for Last 24 Hours 03/28/21 03/29/21 03/30/21 23:59 23:59 23:59 Intake Total 240 / 540 1660 / 1660 360 / 360 Balance 240 / 540 1660 / 1660 360 / 360 Lab / Micro Data Result Diagrams: 03/30/21 06:04 03/30/21 06:04 Labs: Laboratory Results - last 24 hr 03/30/21 03/30/21 06:04 06:04 WBC 5.4 RBC 5.13 Hgb 14.2 Hct 44.5 MCV 86.7 MCH 27.7 MCHC 31.9 L RDW Std Deviation 48.5 H RDW Coeff of Estella 15.1 H Plt Count 236 MPV 9.9 Immature Gran % (Auto) 0.200 Neut % (Auto) 53.9 Lymph % (Auto) 30.4 [place] % (Auto) 8.3 Eos % (Auto) 6.1 H Baso % (Auto) 1.1 H Absolute Neuts (auto) 2.9 Absolute Lymphs (auto) 1.65 Nucleated RBC % 0 Sodium 138 Potassium 4.0 Chloride 108 H Carbon Dioxide 24.0 Anion Gap 6 BUN 17 Creatinine 0.63 Estim Creat Clear Calc 103.89 Est GFR (MDRD) Af Amer 129 Est GFR (MDRD) Non-Af 107 BUN/Creatinine Ratio 27.1 H Glucose 103 Calcium 8.3 L Total Bilirubin 0.40 AST 17 ALT 25 Alkaline Phosphatase 99 Total Protein 7.4 Albumin 3.2 Globulin 4.2 Albumin/Globulin Ratio 0.8 L Physical Exam Narrative Physical exam: General: Alert, Oriented x3, Cooperative, No apparent distress, Well developed HEENT: Atraumatic Oral: Moist Mucosa Neck: Supple Lungs: Clear to auscultation Cardiovascular: HS I+II, regular, no murmurs Abdomen: Bowel Sounds Present, Soft, Non Tender Extremities: No edema Skin: No rashes, No breakdown Neurological: Grossly intact Psych/Mental Status: Appropriate Skin no wounds and no petechiae Neuro moves all extremities Assessment & Plan Assessment/Plan (1) Coronary artery disease: (2) Hypertension: (3) Chest pain: (4) Hyperlipidemia: PLAN: 1. Acute chest pain, atypical, history of CAD status post stents, chronic smoker Stress test today has been equivocal; cardiac cath recommended; planned for Wednesday Continue on aspirin, statin 2. Hypertension, controlled, monitor of blood pressure medications 3.Hyperlipidemia, continue statins Visit Charges Inpatient E&M: 03501 Subs Hosp L2
[2021-03-30] MEDS: Loratadine 10 MG Tablet PO (16:36)
[2021-03-30] MEDS: Atorvastatin Calcium 40 MG Tablet PO (21:15)
[2021-03-30] MEDS: 0.9% Saline Lock 10 ML Syringe IV (21:16)
[2021-03-31] VITALS (17 sets, daily range): BP systolic 121–153; BP diastolic 50–76; PULSE 57–77; RESP 18; TEMP 36.1–36.7; O2SAT 93–98
[2021-03-31] MEDS: Aspirin 81 MG TAB.CHEW PO (05:45)
--- NOTE | 2021-03-31 05:55 | EKG12_ITS ---
Test Reason : AM EKG Blood Pressure : / mmHG Vent. Rate : 062 BPM Atrial Rate : 062 BPM P-R Int : 210 ms QRS Dur : 070 ms QT Int : 406 ms P-R-T Axes : 053 065 076 degrees QTc Int : 412 ms Sinus rhythm with 1st degree A-V block Otherwise normal ECG When compared with ECG of 29-MAR-2021 05:05, MANUAL COMPARISON REQUIRED, DATA IS UNCONFIRMED Confirmed by ELLYN VALDEZ, CLOTILDE ([id number]), editor & co founder STEPHANIE THOMPSON ([id number]) on 04/01/2021 9:39:50 AM Referred By: LIBBY Confirmed By:CLOTILDE RAGLAND MD
[2021-03-31 06:15] LABS: Absolute Lymphocyte Count 1.59 X10^3/uL (0.83-4.51); Absolute Neutrophil Count 3.7 X10^3/uL (2.0-7.7); Basophil# 0.07 X10^3/uL; Basophil% 1.1 % (0-1); Eosinophil# 0.33 X10^3/uL; Eosinophils% 5.4 % (0-5); Hematocrit 43.4 % (37-47); Hemoglobin 13.6 g/dL (12.0-15.0); Lymphocyte # 1.59 X10^3/ul (0.83-4.51); Lymphocyte % 25.8 % (19-41); Mean Corp Hgb Conc 31.3 g/dL (32-36); Mean Corpuscular Hgb 26.9 pg (27.0-32.0); Mean Corpuscular Volume 85.9 fL (81-99); Monocyte# 0.46 X10^3/uL; Monocyte% 7.5 % (0-10); NRBC Flagged by Analyzer 0 % (0-5); Platelet Count 246 K/mm3 (150-450); RBC Distribution Width CV 15.3 % (11.6-14.6); RBC Distribution Width SD 47.6 fl (35.1-43.9); Red Blood Count 5.05 M/mm3 (4.2-5.4); White Blood Count 6.2 K/mm3 (4.4-11.0)
[2021-03-31 06:53] LABS: ALB/GLOB Ratio 0.8 RATIO (0.9-2.4); AST(SGOT) 14 U/L (15-37); Alanine Aminotransfer ALT/SGPT 25 U/L (13-56); Albumin, Serum 3.3 g/dL (3.2-5.0); Alkaline Phosphatase 103 U/L (45-117); Anion Gap 6 (5-15); BUN 15 mg/dL (7-18); Calcium,Total 8.3 mg/dL (8.5-10.1); Chloride 106 mmol/L (98-107); Creatinine, Serum 0.65 mg/dL (0.55-1.02); EST Glomerular Filtration Rate 102 mL/min (>60); Est Glom Filt Rate - Afr Amer 123 mL/min (>60); Estimated Creatinine Clearance 100.69 ml/min; Globulin 4.1 g/dL (2.2-4.2); Glucose 105 mg/dL (74-106); Potassium 3.9 mmol/L (3.5-5.1); Protein, Total 7.4 g/dL (6.4-8.2); Sodium Level 136 mmol/L (136-145)
--- NOTE | 2021-03-31 07:58 | PCM.PN.CARD ---
Subjective Subjective Patient seen and evaluated underwent cardiac catheterization this morning Objective Data Vital Signs: Vital Signs Temp Pulse Resp BP Pulse Ox 97.4 F L 77 18 131/60 H 93 03/31/21 05:42 03/31/21 06:41 03/31/21 05:42 03/31/21 05:42 03/31/21 05:42 Oxygen Delivery Method Room Air Weight: 243 lb 9.773 oz Body Mass Index (BMI) 38.1 Intake & Output: Intake and Output for Last 24 Hours 03/29/21 03/30/21 03/31/21 23:59 23:59 23:59 Intake Total 1660 / 1660 1180 / 1180 45 / 45 Balance 1660 / 1660 1180 / 1180 45 / 45 Lab / Micro Data Result Diagrams: 03/31/21 05:36 03/31/21 05:36 Labs: Laboratory Results - last 24 hr 03/31/21 03/31/21 05:36 05:36 WBC 6.2 RBC 5.05 Hgb 13.6 Hct 43.4 MCV 85.9 MCH 26.9 L MCHC 31.3 L RDW Std Deviation 47.6 H RDW Coeff of Estella 15.3 H Plt Count 246 MPV 10.0 Immature Gran % (Auto) 0.200 Neut % (Auto) 60.0 Lymph % (Auto) 25.8 Esmeralda % (Auto) 7.5 Eos % (Auto) 5.4 H Baso % (Auto) 1.1 H Absolute Neuts (auto) 3.7 Absolute Lymphs (auto) 1.59 Nucleated RBC % 0 Sodium 136 Potassium 3.9 Chloride 106 Carbon Dioxide 24.0 Anion Gap 6 BUN 15 Creatinine 0.65 Estim Creat Clear Calc 100.69 Est GFR (MDRD) Af Amer 123 Est GFR (MDRD) Non-Af 102 BUN/Creatinine Ratio 23.0 H Glucose 105 Calcium 8.3 L Total Bilirubin 0.40 AST 14 L ALT 25 Alkaline Phosphatase 103 Total Protein 7.4 Albumin 3.3 Globulin 4.1 Albumin/Globulin Ratio 0.8 L Cardiology Labs/Tests 03/31/21 05:36: WBC 6.2, RBC 5.05, Hgb 13.6, Hct 43.4, MCV 85.9, MCH 26.9 L, MCHC 31.3 L, Plt Count 246, MPV 10.0, Immature Gran % (Auto) 0.200, Neut % (Auto) 60.0, Lymph % (Auto) 25.8, Esmeralda % (Auto) 7.5, Eos % (Auto) 5.4 H, Baso % (Auto) 1.1 H, Absolute Neuts (auto) 3.7, Nucleated RBC % 0 03/31/21 05:36: Sodium 136, Potassium 3.9, Chloride 106, Carbon Dioxide 24.0, Anion Gap 6, BUN 15, Creatinine 0.65, Est GFR (MDRD) Af Amer 123, Est GFR (MDRD) Non-Af 102, BUN/Creatinine Ratio 23.0 H, Glucose 105, Calcium 8.3 L, Total Bilirubin 0.40 Rhythm: EKG: ECHO: Stress Test: Cardiac Cath: PCI: CT Surgery: Holter monitor: EPS: PPM: CXR: Chest CT Scan: Physical Exam Const oriented x3 and healthy appearing Orientation / Consciousness: awake HEENT normocephalic Eyes PERRL and conjunctivae normal Neck supple, no JVD and no carotid bruits Chest inspection of chest normal Resp normal respiratory effort and clear to auscultation bilaterally Cardio Palpation: normal PMI Rate: regular rate Rhythm: regular rhythm Heart Sounds: S1 normal and S2 normal Peripheral Pulses: pulses 2+ throughout GI normal to inspection, nondistended, normoactive bowel sounds Extremity normal to inspection and no clubbing, cyanosis or edema Psych mental status grossly normal Assessment & Plan Assessment/Plan (1) Coronary artery disease: PLAN: She is status post previous angioplasty and stenting of the left anterior descending artery. The cardiac catheterization today demonstrated patency of the previously placed stent in the LAD. The circumflex artery had minimal disease. The right coronary artery has developed a new 70 to 80% proximal stenosis. Her ejection fraction is preserved. Based on the above angiographic findings would recommend angioplasty and stenting of the proximal right coronary artery. (2) Hypertension: PLAN: Continue with antihypertensive medication.
--- NOTE | 2021-03-31 09:00 | EKG12_ITS ---
Test Reason : Blood Pressure : / mmHG Vent. Rate : 062 BPM Atrial Rate : 062 BPM P-R Int : 224 ms QRS Dur : 078 ms QT Int : 410 ms P-R-T Axes : 051 058 069 degrees QTc Int : 416 ms Sinus rhythm with 1st degree A-V block Otherwise normal ECG When compared with ECG of 31-MAR-2021 09:20, MANUAL COMPARISON REQUIRED, DATA IS UNCONFIRMED Confirmed by ELLYN VALDEZ, CLOTILDE ([id number]), editorial project manager STEPHANIE THOMPSON ([id number]) on 04/01/2021 9:40:11 AM Referred By: NATALIO Confirmed By:CLOTILDE RAGLAND MD
--- NOTE | 2021-03-31 09:26 | CL.I_ITS ---
Patient Name: BRANDI MCDONALD Study Date: 03/31/2021 Performing: Isabel Woodward MD Ht: 67 inches 170 cm : 1970 Wt: 245 lbs 111 kg Age: 50 Gender: female BSA: 2.2 PROCEDURE(S) PERFORMED [id number] W OR WO PTCA, SINGLE CORONARY ARTERY CLINICAL PROFILE AND CO-MORBIDITIES Indications: Suspected CAD Heart Failure: None Stress/Imaging Stress/Image Study Performed: No CAD Presentations: Unstable angina. CONCLUSIONS RECOMMENDATIONS ASA Indefinitley Brilinta for at least 12 months Successful PCI of pRCA with ANTHONY DESCRIPTION OF PROCEDURE The patient arrived to the procedure lab. The risks and benefits of the procedure as well as a full d escription of our services here and current unavailability of surgical backup were fully explained to the patient and/or their significant other prior to the catheterization. The Timeout was completed, verifying the correct patient and procedure. The patient's procedural site was prepped and draped in the usual fashion. Local anesthetic was given subcutaneously to right radial region with Lidocaine 2% Using a modified Seldinger technique,arterial access was obtained via the right radial artery, a 6Fr sheath was inserted. Left Coronary Artery selective angiography was performed in multiple views usin g a 5 Fr. 4.0 [place] catheter. Right Coronary Artery selective angiography was then performed in multi ple views using a 5 Fr. 4.0 [place] catheter. Left Ventriculography was performed in DIAZ projection usi ng a 5 Fr. Pigtail catheter. LV to AO pullback pressures were then recorded.The images were reviewed and options discussed. A decision was then made to proceed with an Intervention, IVUS o r other adjunct procedure. JR4 Guide catheter was inserted and engaged into the RCA. BMW Guide wire was advanced to the RCA. 4.0X22 ORSIRO Drug Eluting stent was inserted. Angiogram performed PRE stent deployment. Angiogram p erformed POSTstent deployment. The arterial sheath was pulled and a TR Band was applied for hemosta sis - 10CC AIR INTERVENTION INFORMATION LESION SITE: RCA (Proximal) Lesion Complexity: High/C, chronic total occlusion: No, lesion at bifurcation: No, thrombus present: No, lesion length: 20 mm, culprit lesion: Yes, Previously treated lesion: No Pre Stenosis: 80 % Pre intervention GINO flow: 3 PROCEDURE: Drug Eluting Stent Post Stenosis: 0 % Post intervention GINO flow: 3 Lesion Devices: Greco .014 BMW [place] Straight 190cm Cardinal 6 Fr JR4 100cm Guide Catheter COMPLICATIONS No Complications PROCEDURE MEDICATIONS Fentanyl 50 mcg IV Versed 1 mg IV Versed 1 mg IV Oxygen: 2 L/min via nasal cannula Brilinta 180 mg PO @ 03/31/2021 07:54:30 Heparin diluted in 23cc Heparinized saline. Patient given 10cc IA of this solution. 03/31/2021 07:42: 35 Heparin 8000 unit(s) IV 03/31/2021 08:29:36 Verapamil 2.5mg, Ntg 100mcgs, 2000 units of Heparin diluted in 23cc Heparinized saline. Patient give n 10cc IA of this solution. 03/31/2021 07:42:35 IV Bolus: .9 NaCl 250 ml total 03/31/2021 08:44:47 SUMMARY OF HEMODYNAMIC DATA Time AIR REST AO 109/66 (86) SA 07:45:15 LV 120/-1, 2 07:51:44 LV 120/-1, 2 07:51:50 LV 112/3, 8 07:52:33 LV 108/9, 16 07:52:40 LVp 103/3, 10 07:52:46 AOp 0/-38 (1) 07:52:51 Signed By Isabel Woodward MD On 03/31/2021 09:25:29 Isabel Woodward MD
[2021-03-31] MEDS: Loratadine 10 MG Tablet PO (09:49)
[2021-03-31] MEDS: 0.9% Normal Saline 1,000 ML 80 ML IV (09:49)
--- NOTE | 2021-03-31 11:24 | PCM.PN.HOSP ---
Subjective Subjective Patient is a 50-year-old lady with underlying history of coronary artery disease with previous stent placement presented with chest pain and assessment of unstable angina made admitted to monitored bed with consultation placed to cardiology. Patient underwent left heart catheterization on 03/31/2021 with placement of drug-eluting stents in his proximal LAD following discovery of a 70 to 80% lesion Objective Data Objective Data Vital Signs: Vital Signs Temp Pulse Resp BP Pulse Ox 97.8 F 60 18 125/68 H 97 03/31/21 11:00 03/31/21 11:00 03/31/21 11:00 03/31/21 11:00 03/31/21 11:00 Oxygen Delivery Method Room Air Weight: 110.5 kg Body Mass Index (BMI) 38.1 Intake & Output: Intake and Output for Last 24 Hours 03/29/21 03/30/21 03/31/21 23:59 23:59 23:59 Intake Total 1660 / 1660 1180 / 1180 45 / 45 Balance 1660 / 1660 1180 / 1180 45 / 45 Lab / Micro Data Result Diagrams: 03/31/21 05:36 03/31/21 05:36 Labs: Laboratory Results - last 24 hr 03/31/21 03/31/21 05:36 05:36 WBC 6.2 RBC 5.05 Hgb 13.6 Hct 43.4 MCV 85.9 MCH 26.9 L MCHC 31.3 L RDW Std Deviation 47.6 H RDW Coeff of Estella 15.3 H Plt Count 246 MPV 10.0 Immature Gran % (Auto) 0.200 Neut % (Auto) 60.0 Lymph % (Auto) 25.8 Reynolds % (Auto) 7.5 Eos % (Auto) 5.4 H Baso % (Auto) 1.1 H Absolute Neuts (auto) 3.7 Absolute Lymphs (auto) 1.59 Nucleated RBC % 0 Sodium 136 Potassium 3.9 Chloride 106 Carbon Dioxide 24.0 Anion Gap 6 BUN 15 Creatinine 0.65 Estim Creat Clear Calc 100.69 Est GFR (MDRD) Af Amer 123 Est GFR (MDRD) Non-Af 102 BUN/Creatinine Ratio 23.0 H Glucose 105 Calcium 8.3 L Total Bilirubin 0.40 AST 14 L ALT 25 Alkaline Phosphatase 103 Total Protein 7.4 Albumin 3.3 Globulin 4.1 Albumin/Globulin Ratio 0.8 L Physical Exam Narrative GENERAL: cooperative HEENT: Atraumatic; EYES; Anicteric, Normal Conjunctiva NECK; supple, normal thyroid, RESPIRATORY: Diminished to auscultation CARDIOVASCULAR: Regular S1 S2, GI: soft, normoactive bowel sounds, : No Renal angle tenderness; EXTREMITIES: No edema, no clubbing, MUSCULOSKELETAL: no muscle waisting NEURO: Awake; no lateralizing signs. SKIN: No Rash PSYCH; Flat affect Assessment & Plan Assessment/Plan (1) S/P right coronary artery (RCA) stent placement: (2) Unstable angina: (3) Hypertension: (4) Hyperlipidemia: PLAN: Patient is a 50-year-old lady with underlying history of coronary artery disease with previous stent placement presented with chest pain and assessment of unstable angina made admitted to monitored bed with consultation placed to cardiology. Patient underwent left heart catheterization on 03/31/2021 with placement of drug-eluting stents in his proximal LAD following discovery of a 70 to 80% lesion 1. Unstable angina ?Patient was admitted to monitored bed managed per protocol with consultation placed to cardiology patient underwent left heart catheterization on 03/31/2021 with discovery of a proximal 70 to 80% RCA lesion for which patient underwent PCI with ANTHONY 2. Coronary artery disease ?with previous stent placement in her LAD underwent intervention of her RCA lesion as discussed above 3. Hypertension - Blood pressure controlled, home medications continued with dose adjustment as needed 4. Morbid obesity - With a BMI of 38.2 patient was counseled on weight reduction 5. Dyslipidemia -patient started on atorvastatin Visit Charges OBSV E&M: 71982 Subsequent observation care L3
--- NOTE | 2021-03-31 13:25 | CRPHASE1 ---
Patient Communication PHII Cardiac Rehab Discussed with Patient:: Yes Guide to Cardiac Rehab Given to Patient:: Yes Cardiac Rehab Facility Choice List Given to Patient:: Yes Choice Program [facility] CR PHII:: Communication Given to CR, Refer to [facility] Billet Recorder:: David Woodward Phase II Cardiac Rehab:: Yes Sessions:: 36 sessions - 3 days/wk, 12 weeks Cardiac Rehabilitation Info Cardiac Rehabilitation Program Information: Cardiac Rehabilitation is important for patients like you who are recovering from a heart problem. Cardiac rehabilitation programs are recognized as integral to the continued care of the patient with coronary heart disease. The cardiac rehabilitation program is designed to optimize a patient's physical, psychological, and social functioning. Health post acute care registered nurse work in cardiac rehabilitation programs and assist you with getting the treatments you need to get stronger and healthier - like exercise, healthy eating habits, and medications. Cardiac rehabilitation has been show to help people with heart problems live longer and have better life enjoyment than people who do not go to cardiac rehabilitation. Please contact the Cardiac Rehabilitation Program at [facility] at in two weeks if you have not heard from them.
--- NOTE | 2021-03-31 13:26 | CRPH1.INSTRU ---
General Education CAD and cardiac anatomy and function:: Patient communicates acknowledgment Explanation of diagnoses and procedures:: Patient communicates acknowledgment Sign/Symptoms of NM:: Patient communicates acknowledgment Antiplatelet therapy: Patient communicates acknowledgment Proper use of NTG-SL: Patient communicates acknowledgment Emergency procedures and activation of EMS: Patient communicates acknowledgment Compliance of all prescribed medications: Patient communicates acknowledgment Overweight/Obesity Patient Overweight/Obesity Risk Factors Are:: Obesity - > or = 30 Recommendations Include:: Weight loss of 5-10%, Reduced calorie diet, Exercise 5-7 times/week Overweight/Obesity:: Patient communicates acknowledgment Hypertension Recommendations Include:: Maintain BP <130/85, BP <130/80 if diabetic, DASH dietary guidelines, Decrease/maintain normal body weight Hypertension:: Patient communicates acknowledgment Heart Disease Patient Heart Disease Risk Factors Are:: Family history of heart disease < 65 years old Recommendations Include:: Educated family members of their risk, Educated family members of importance of prevention of heart disease Heart Disease Response Code:: Patient communicates acknowledgment
--- NOTE | 2021-03-31 14:11 | EKG12_ITS ---
Test Reason : PCI Blood Pressure : / mmHG Vent. Rate : 058 BPM Atrial Rate : 058 BPM P-R Int : 226 ms QRS Dur : 070 ms QT Int : 420 ms P-R-T Axes : 069 067 086 degrees QTc Int : 412 ms Sinus bradycardia with 1st degree A-V block Otherwise normal ECG When compared with ECG of 31-MAR-2021 05:48, MANUAL COMPARISON REQUIRED, DATA IS UNCONFIRMED Confirmed by ELLYN VALDEZ, CLOTILDE ([id number]), magazine editor STEPHANIE THOMPSON ([id number]) on 04/01/2021 9:41:02 AM Referred By: KOLE Confirmed By:CLOTILDE RAGLAND MD
[2021-03-31] MEDS: Acetaminophen 325 MG Tablet 650 MG PO (15:29)
--- NOTE | 2021-03-31 15:52 | PCM.DC ---
Discharge Instructions Diet Discharge Diet: Low fat / Low cholesterol Activity Discharge Activity: Return to Normal Activity Dressing / Incision Call your doctor if you observe: Fever of 101 or Higher, Shortness of breath, Fainting spells and Chest pain Follow Up Care Test Results: Test results from this visit will be discussed in further detail at your follow-up appointment, if applicable. Discharge Plan Admission Admit Date/Time: 03/28/21 15:08 Primary Reason for Your Visit: Unstable angina Attending Provider: Caden Avilez Primary Care Provider: Care Physician,No Primary Consulting Providers: Joni Michel Instructions Patient Instructions: Angina, High Blood Pressure (Hypertension) Discharge Orders/Prescriptions Prescriptions: New atorvastatin 40 mg Tablet 40 mg PO QHS Qty: 90 RF: 0 Brilinta 90 mg Tablet 90 mg PO BID Qty: 180 RF: 3 metoprolol tartrate 25 mg tablet 25 mg PO BID Qty: 180 RF: 0 losartan 25 mg tablet 25 mg PO DAILY Qty: 90 RF: 0 Brilinta 90 mg tablet 90 mg PO BID Qty: 180 RF: 0 Continued aspirin 81 MG tablet,chewable 81 mg PO DAILY@0800 RF: 0 Referrals / Follow Up: Joni Michel MD [STAFF PHYSICIAN] - Within 1 Month Care Physician,No Primary [Primary Care Provider] - In 1 Week Disposition Disposition (needs filled in before D/C Order can be placed): Home, self care
[2021-03-31] MEDS: Atorvastatin Calcium 40 MG Tablet PO (21:24)
[2021-03-31] MEDS: TICAGRELOR 90 MG TABLET PO (21:24)
[2021-04-01 03:00] VITALS: PULSE 59
[2021-04-01 03:20] VITALS: BP 132/70; PULSE 63; RESP 20; TEMP 36.3; O2SAT 95
[2021-04-01 06:05] LABS: Absolute Neutrophil Count 3.7 X10^3/uL (2.0-7.7); Basophil# 0.04 X10^3/uL; Basophil% 0.7 % (0-1); Eosinophil# 0.39 X10^3/uL; Eosinophils% 7.1 % (0-5); Hematocrit 42.3 % (37-47); Hemoglobin 13.5 g/dL (12.0-15.0); Lymphocyte % 16.4 % (19-41); Mean Corp Hgb Conc 31.9 g/dL (32-36); Mean Corpuscular Volume 84.6 fL (81-99); Mean Platelet Vol. 9.5 fl (6.2-12.0); Monocyte# 0.47 X10^3/uL; Monocyte% 8.6 % (0-10); NRBC Flagged by Analyzer 0 % (0-5); Neutrophil # 3.68 X10^3/uL (2.7-7.7); Platelet Count 199 K/mm3 (150-450); RBC Distribution Width SD 45.5 fl (35.1-43.9); White Blood Count 5.5 K/mm3 (4.4-11.0)
[2021-04-01 06:45] LABS: ALB/GLOB Ratio 0.8 RATIO (0.9-2.4); AST(SGOT) 15 U/L (15-37); Alanine Aminotransfer ALT/SGPT 26 U/L (13-56); Albumin, Serum 3.1 g/dL (3.2-5.0); Alkaline Phosphatase 105 U/L (45-117); Anion Gap 6 (5-15); BUN 11 mg/dL (7-18); BUN/Creat Ratio 18.2 RATIO (10-20); Calcium,Total 8.3 mg/dL (8.5-10.1); Chloride 108 mmol/L (98-107); EST Glomerular Filtration Rate 111 mL/min (>60); Est Glom Filt Rate - Afr Amer 134 mL/min (>60); Estimated Creatinine Clearance 109.08 ml/min; Globulin 3.9 g/dL (2.2-4.2); Glucose 95 mg/dL (74-106); Potassium 3.9 mmol/L (3.5-5.1); Sodium Level 138 mmol/L (136-145)
[2021-04-01 07:00] VITALS: PULSE 61
[2021-04-01] MEDS: Aspirin 81 MG TAB.CHEW PO (07:50)
--- NOTE | 2021-04-01 08:18 | PCM.PN.CARD ---
Subjective Subjective Patient seen and evaluated. Had uneventful night. was itching to get out of hospital. Objective Data Vital Signs: Vital Signs Temp Pulse Resp BP Pulse Ox 97.3 F L 61 20 H 132/70 H 95 04/01/21 03:20 04/01/21 07:00 04/01/21 03:20 04/01/21 03:20 04/01/21 03:20 Oxygen Delivery Method Room Air Weight: 243 lb 9.773 oz Body Mass Index (BMI) 38.1 Intake & Output: Intake and Output for Last 24 Hours 03/30/21 03/31/21 04/01/21 23:59 23:59 23:59 Intake Total 1180 / 1180 1845 / 2205 480 / 480 Balance 1180 / 1180 1845 / 2205 480 / 480 Lab / Micro Data Result Diagrams: 04/01/21 05:54 04/01/21 05:54 Labs: Laboratory Results - last 24 hr 04/01/21 04/01/21 05:54 05:54 WBC 5.5 RBC 5.00 Hgb 13.5 Hct 42.3 MCV 84.6 MCH 27.0 MCHC 31.9 L RDW Std Deviation 45.5 H RDW Coeff of Estella 15.0 H Plt Count 199 MPV 9.5 Immature Gran % (Auto) 0.200 Neut % (Auto) 67.0 Lymph % (Auto) 16.4 L [place] % (Auto) 8.6 Eos % (Auto) 7.1 H Baso % (Auto) 0.7 Absolute Neuts (auto) 3.7 Absolute Lymphs (auto) 0.90 Nucleated RBC % 0 Sodium 138 Potassium 3.9 Chloride 108 H Carbon Dioxide 24.0 Anion Gap 6 BUN 11 Creatinine 0.60 Estim Creat Clear Calc 109.08 Est GFR (MDRD) Af Amer 134 Est GFR (MDRD) Non-Af 111 BUN/Creatinine Ratio 18.2 Glucose 95 Calcium 8.3 L Magnesium 2.0 Total Bilirubin 0.50 AST 15 ALT 26 Alkaline Phosphatase 105 Total Protein 7.0 Albumin 3.1 L Globulin 3.9 Albumin/Globulin Ratio 0.8 L Cardiology Labs/Tests 04/01/21 05:54: WBC 5.5, RBC 5.00, Hgb 13.5, Hct 42.3, MCV 84.6, MCH 27.0, MCHC 31.9 L, Plt Count 199, MPV 9.5, Immature Gran % (Auto) 0.200, Neut % (Auto) 67.0, Lymph % (Auto) 16.4 L, [place] % (Auto) 8.6, Eos % (Auto) 7.1 H, Baso % (Auto) 0.7, Absolute Neuts (auto) 3.7, Nucleated RBC % 0 04/01/21 05:54: Sodium 138, Potassium 3.9, Chloride 108 H, Carbon Dioxide 24.0, Anion Gap 6, BUN 11, Creatinine 0.60, Est GFR (MDRD) Af Amer 134, Est GFR (MDRD) Non-Af 111, BUN/Creatinine Ratio 18.2, Glucose 95, Calcium 8.3 L, Magnesium 2.0, Total Bilirubin 0.50 Rhythm: EKG: ECHO: Stress Test: Cardiac Cath: PCI: CT Surgery: Holter monitor: EPS: PPM: CXR: Chest CT Scan: Assessment & Plan Assessment/Plan (1) Coronary artery disease: PLAN: She is status post previous angioplasty and stenting of the left anterior descending artery. The cardiac catheterization today demonstrated patency of the previously placed stent in the LAD. The circumflex artery had minimal disease. The right coronary artery has developed a new 70 to 80% proximal stenosis. Her ejection fraction is preserved. Based on the above angiographic findings she underwent angioplasty and stenting of the proximal right coronary artery. She tolerated the procedure well. Will undergo cardiac rehabilitation. (2) Hypertension: PLAN: Continue with antihypertensive medication.
[2021-04-01 09:18] VITALS: BP 103/61; PULSE 66; RESP 16; TEMP 36.4; O2SAT 96
[2021-04-01] MEDS: TICAGRELOR 90 MG TABLET PO (09:19)
[2021-04-01] MEDS: Loratadine 10 MG Tablet PO (09:19)
--- NOTE | 2021-04-01 09:59 | DS.PCM_ITS ---
Providers Date of Admission: 03/28/21 Primary Care Physician: Ivelisse Primary Care Phys Reason For Visit: CHEST PAIN Medications at Discharge Home Medications aspirin 81 mg PO DAILY@0800 06/09/19 atorvastatin 40 mg PO QHS #90 tab 03/31/21 losartan 25 mg PO DAILY #90 tab 03/31/21 metoprolol tartrate 25 mg PO BID #180 tab 03/31/21 ticagrelor [Brilinta] 90 mg PO BID #180 tab 03/31/21 ticagrelor [Brilinta] 90 mg PO BID #180 tab 04/01/21 Hospital Course Summary of Care Provided Minutes Spent on Discharge: 35 Hospital Course: Patient is a 50-year-old lady with underlying history of coronary artery disease with previous stent placement presented with chest pain and assessment of unstable angina made admitted to monitored bed with con sultation placed to cardiology.? Patient underwent left heart catheterization on 03/31/2021 with placement of drug-eluting stents in his proximal LAD following discovery of a 70 to 80% lesion 1.? Unstable angina ?Patient was admitted to monitored bed managed per protocol with consultation placed to cardiology patient underwent left heart catheterization on 03/31/2021 with discovery of a proximal 70 to 80% RCA lesion for which patient underwent PCI with ANTHONY 2.? Coronary artery disease ?with previous stent placement in her LAD underwent intervention of her RCA lesion as discussed above 3.? Hypertension - Blood pressure controlled, home medications continued with dose adjustment as needed 4.? Morbid obesity - With a BMI of 38.2 patient was counseled on weight reduction 5.? Dyslipidemia -patient started on atorvastatin Physical Exam Const alert General Appearance: cooperative HEENT head/scalp atraumatic Eyes conjunctivae normal Resp normal respiratory effort and no use of accessory muscles Cardio regular rate and regular rhythm GI normal to inspection, nondistended, normoactive bowel sounds Extremity no clubbing, cyanosis or edema Neuro no focal motor deficits Sensorium / Orientation: oriented to person Psych affect normal ABG / Lab / Microbiology Data Result Diagrams: 04/01/21 05:54 04/01/21 05:54 Laboratory: Laboratory Results - last 24 hr 04/01/21 04/01/21 05:54 05:54 WBC 5.5 RBC 5.00 Hgb 13.5 Hct 42.3 MCV 84.6 MCH 27.0 MCHC 31.9 L RDW Std Deviation 45.5 H RDW Coeff of Estella 15.0 H Plt Count 199 MPV 9.5 Immature Gran % (Auto) 0.200 Neut % (Auto) 67.0 Lymph % (Auto) 16.4 L [place] % (Auto) 8.6 Eos % (Auto) 7.1 H Baso % (Auto) 0.7 Absolute Neuts (auto) 3.7 Absolute Lymphs (auto) 0.90 Nucleated RBC % 0 Sodium 138 Potassium 3.9 Chloride 108 H Carbon Dioxide 24.0 Anion Gap 6 BUN 11 Creatinine 0.60 Estim Creat Clear Calc 109.08 Est GFR (MDRD) Af Amer 134 Est GFR (MDRD) Non-Af 111 BUN/Creatinine Ratio 18.2 Glucose 95 Calcium 8.3 L Magnesium 2.0 Total Bilirubin 0.50 AST 15 ALT 26 Alkaline Phosphatase 105 Total Protein 7.0 Albumin 3.1 L Globulin 3.9 Albumin/Globulin Ratio 0.8 L D/C Instructions Discharge Diet: Low fat / Low cholesterol Discharge Activity: Return to Normal Activity Call your doctor if you observe: Fever of 101 or Higher, Shortness of breath, Fainting spells and Chest pain Meaningful Use Info Meaningful Use Diagnoses (Choose all that apply): None applicable Discharge Plan Admission Admit Date/Time: 03/28/21 15:08 Primary Reason for Your Visit: Unstable angina Attending Provider: Caden Avilez Primary Care Provider: Care Physician,No Primary Consulting Providers: Joni Michel Instructions Patient Instructions: Angina, High Blood Pressure (Hypertension) Discharge Orders/Prescriptions Prescriptions: New atorvastatin 40 mg Tablet 40 mg PO QHS Qty: 90 RF: 0 Brilinta 90 mg Tablet 90 mg PO BID Qty: 180 RF: 3 metoprolol tartrate 25 mg tablet 25 mg PO BID Qty: 180 RF: 0 losartan 25 mg tablet 25 mg PO DAILY Qty: 90 RF: 0 Brilinta 90 mg tablet 90 mg PO BID Qty: 180 RF: 0 Continued aspirin 81 MG tablet,chewable 81 mg PO DAILY@0800 RF: 0 Referrals / Follow Up: Joni Michel MD [STAFF PHYSICIAN] - Within 1 Month Care Physician,No Primary [Primary Care Provider] - In 1 Week Disposition Disposition (needs filled in before D/C Order can be placed): Home, self care Visit Charges OBSV E&M: 26366 Observation care discharge
--- NOTE | 2021-04-01 10:00 | EKG12_ITS ---
Test Reason : AM EKG Blood Pressure : / mmHG Vent. Rate : 062 BPM Atrial Rate : 062 BPM P-R Int : 222 ms QRS Dur : 070 ms QT Int : 402 ms P-R-T Axes : 053 070 065 degrees QTc Int : 408 ms Sinus rhythm with 1st degree A-V block Otherwise normal ECG When compared with ECG of 28-MAR-2021 15:44, MANUAL COMPARISON REQUIRED, DATA IS UNCONFIRMED Confirmed by ELLYN VALDEZ, CLOTILDE ([id number]), photography editor STEPHANIE THOMPSON ([id number]) on 04/01/2021 9:42:35 AM Referred By: LUCIO Confirmed By:CLOTILDE RAGLAND MD
--- NOTE | 2021-04-01 10:22 | PHA.DC.MC ---
Pharmacy Service has performed discharge medication reconciliation and counseling for this patient. 1. ATORVASTATIN 40MG PO QHS 2. LOSARTAN 25MG PO DAILY 3. METOPROLOL TARTRATE 25MG PO BID 4. TICAGRELOR 90MG PO BID The patient's discharge medication list was reviewed for discrepancies and discrepancies were resolved. Did not speak to Dr. Avilez regarding duplication. Pt needs first fill through [facility] retail because [facility] is out of [facility]. Did not want to cancel so patient will be able to fill in the future at [facility]. Home Medications aspirin 81 mg PO DAILY@0800 06/09/19 atorvastatin 40 mg PO QHS #90 tab 03/31/21 losartan 25 mg PO DAILY #90 tab 03/31/21 metoprolol tartrate 25 mg PO BID #180 tab 03/31/21 ticagrelor [Brilinta] 90 mg PO BID #180 tab 03/31/21 ticagrelor [Brilinta] 90 mg PO BID #180 tab 04/01/21 The patient was counseled on the following discharge medications and changes in medications for homegoing were reviewed. The Reason for Use, instructions for use, and potential side effects were reviewed for all new medications. The patient's questions regarding all of their medications were answered. The patient was able to verbally demonstrate an understanding of their discharge medications. Patient counseled by clinical pharmacy specialistBen.
--- NOTE | 2021-04-01 10:46 | CASEMGMT ---
RAMONE STEWART called [facility], savings card was applied for Brillinta. RAMONE STEWART in to pt room. Pt states she will have insurance soon. She is aware of savings card that was applied and states she has been on this med before. She states she was getting it from [place] d/t lower cost. in room, both denied further questions.
--- NOTE | 2021-04-07 10:50 | CL.D_ITS ---
Patient Name: BRANDI MCDONALD Study Date: 03/31/2021 Performing: Joni Michel MD Ht: 66.93 inches 170 cm : 1970 Wt: 244.71 lbs 111 kg Age: 50 Gender: female BSA: 2.2 PROCEDURE(S) PERFORMED BF95-OUO/COR/LV LP37-DDS W OR WO PTCA, SINGLE CORONARY ARTERY CLINICAL PROFILE AND INDICATIONS Indications: Suspected CAD Heart Failure: None Stress/Imaging Stress/Image Study Performed: No CAD Presentations: Unstable angina. CONCLUSIONS Significant proximal right coronary artery stenosis, previously placed stent in the LAD which is downs nt, and preserved ejection fraction. RECOMMENDATIONS Referred for immediate PCI DESCRIPTION OF PROCEDURE The patient arrived to the procedure lab. The risks and benefits of the procedure as well as a full d escription of our services here and current unavailability of surgical backup were fully explained to the patient and/or their significant other prior to the catheterization. The Timeout was completed, verifying the correct patient and procedure. The patient's procedural site was prepped and draped in the usual fashion. Local anesthetic was given subcutaneously to right radial region with Lidocaine 2% . Using a modified Seldinger technique, arterial access was obtained via the right radial artery, a 6 Fr sheath was inserted. Left Coronary Artery selective angiography was performed in multiple views u sing a 5 Fr. 4.0 [place] catheter. Right Coronary Artery selective angiography was then performed in mu ltiple views using a 5 Fr. 4.0 [place] catheter. Left Ventriculography was performed in DIAZ projection using a 5 Fr. Pigtail catheter. LV to AO pullback pressures were then recorded.The arterial sheath was pulled and a TR Band was applied for hemostasis - 10CC AIR CORONARY ANGIOGRAPHY DOMINANCE: Right Dominant LEFT HEART ASSESSMENT Left Ventricular Ejection Fraction: by LV Gram 60 % Normal LV wall motion Normal Left Ventricular systolic function LEFT MAIN: Angiographically normal LEFT ANTERIOR DESCENDING ARTERY: PROX LAD: Previously placed stent is patent CIRCUMFLEX ARTERY: Mild luminal irregularities RIGHT CORONARY ARTERY: PROX RCA: 80 % Stenosis COMPLICATIONS No Complications PROCEDURE MEDICATIONS Fentanyl 50 mcg IV Versed 1 mg IV Versed 1 mg IV Oxygen: 2 L/min via nasal cannula Brilinta 180 mg PO @ 03/31/2021 07:54:30 Heparin diluted in 23cc Heparinized saline. Patient given 10cc IA of this solution. 03/31/2021 07:42: 35 Heparin 8000 unit(s) IV 03/31/2021 08:29:36 Verapamil 2.5mg, Ntg 100mcgs, 2000 units of Heparin diluted in 23cc Heparinized saline. Patient give n 10cc IA of this solution. 03/31/2021 07:42:35 IV Bolus: .9 NaCl 250 ml total 03/31/2021 08:44:47 SUMMARY OF HEMODYNAMIC DATA Time AIR REST AO 109/66 (86) SA 07:45:15 LV 120/-1, 2 07:51:44 LV 120/-1, 2 07:51:50 LV 112/3, 8 07:52:33 LV 108/9, 16 07:52:40 LVp 103/3, 10 07:52:46 AOp 0/-38 (1) 07:52:51 Signed By Joni Michel MD On 04/07/2021 10:49:24 Joni Michel MD
== END 2021-04-01 09:53 | disposition home or self-care (01) ==
LOC: ED 15:03 → PCU 15:51
PROVIDERS: Internal Medicine; Specialist; Admitting Provider Hospitalist; Emergency Provider Emergency Medicine; Visit Provider Internal Medicine
DX: I25.110 Atherosclerotic heart disease of native coronary artery with unstable angina pectoris (principal); I25.2 Old myocardial infarction; F17.200 Nicotine dependence, unspecified, uncomplicated; E78.5 Hyperlipidemia, unspecified; I10 Essential (primary) hypertension; Z95.5 Presence of coronary angioplasty implant and graft; Z79.82 Long term (current) use of aspirin; E66.01 Morbid (severe) obesity due to excess calories; Z68.38 Body mass index [BMI] 38.0-38.9, adult
CPT/HCPCS: 36415; 71045; 78452; 80048; 80053; 80061; 83735; 84484; 85025; 92928; 93005; 93017; 93458; 96360; 96361; 99152; 99153; 99218; 99285; A9500; J7030; J7040; A4216; C1769; C1874; C1887; C1894; C9600; G0378; J2785; Q9967

== ENCOUNTER 2021-06-16 09:34 | Emergency (ER) | payer SELFPAY ==
[2021-05-02 13:52] VITALS: BMI 38.0
[2021-06-16 09:35] VITALS: BP 142/67; PULSE 59; RESP 18; TEMP 35.9; O2SAT 100; BMI 37.3
[2021-06-16 09:36] VITALS: BP 132/88; PULSE 55; RESP 18; TEMP 36.8; O2SAT 99; BMI 38.2
--- NOTE | 2021-06-16 09:39 | EKG12_ITS ---
Test Reason : CP Blood Pressure : / mmHG Vent. Rate : 055 BPM Atrial Rate : 055 BPM P-R Int : 216 ms QRS Dur : 068 ms QT Int : 404 ms P-R-T Axes : 064 050 046 degrees QTc Int : 386 ms Sinus bradycardia with 1st degree A-V block Otherwise normal ECG Confirmed by KOLE VALEDZ, HARMAN ([id number]), supervising film or videotape editor STEPHANIE THOMPSON ([id number]) on 06/19/2021 12:44:12 PM Referred By: RYLAND Confirmed By:HARMAN SHARIF MD
--- NOTE | 2021-06-16 09:39 | RAD_ITS ---
STUDY: X-RAY CHEST REASON FOR EXAM: Female, 50 years old. Chest pain TECHNIQUE: Frontal view of the chest COMPARISON: 03/28/21 FINDINGS: There is linear opacity in the left upper lobe. The lungs are otherwise clear. There are no pleural effusions. There is no pneumothorax. The heart is stable in size. The visualized osseous structures are within normal limits. RAD/Chest 1 View (Portable) IMPRESSION: The opacity in the left upper lobe which likely represents scarring or atelectasis. Otherwise, clear lungs. Electronically Signed: Paramjit Erwin MD at 11:07 EDT Tel , Service support ,
--- NOTE | 2021-06-16 09:49 | EDS_ITS ---
HPI History of Present Illness Chief Complaint: Chest Pain Narrative Narrative: 50-year-old female presenting with chest pain which she states is retrosternal and feels like tightness or pressure. She states it radiates into her back between her shoulder blades. Patient states this started about 6 PM yesterday and has been intermittent lasting about 10 minutes per episode. She states that she did break out into a cold sweat at one point. Patient states that she recently was changed from Brilinta to Plavix and did look up the side effects/symptoms and stated that they were consistent with this. She called 's office this morning who told her to come to the ED for an evaluation. Patient denies history of DVT/PE. Patient had a recent cardiac catheterization and restenting of her right coronary artery. Her left anterior descending was still patent. Patient also complaining that she has a lot of stress and her symptoms may be due to stress. [facility] Medical History Atherosclerosis of coronary artery without angina pectoris Essential (primary) hypertension History of non-ST elevation myocardial infarction (NSTEMI) (06/2014) Hypothyroidism Kidney stones Nicotine dependence Home Medications aspirin 81 mg PO DAILY@0800 06/09/19 [History Last Taken 03/28/21] atorvastatin 40 mg PO QHS #90 tab 03/31/21 [Rx Last Taken Unknown] losartan 25 mg PO DAILY #90 tab 03/31/21 [Rx Last Taken Unknown] metoprolol tartrate 25 mg PO BID #180 tab 03/31/21 [Rx Last Taken Unknown] clopidogrel 75 mg tablet 75 mg PO DAILY #90 tab 05/02/21 [Rx Last Taken Unknown] Allergy/AdvReac Type Severity Reaction Status Date / Time No Known Allergies Allergy Verified 06/16/21 09:40 Surgical History Cataract extraction status of right eye History of cholecystectomy History of coronary artery stent placement (03/31/21) Hx of tubal ligation Social History Smoking Status: Current every day smoker tobacco type: cigarettes details: Denied drinking alcohol. [facility] ED Constitutional Constitutional ED: Reports sweats; Denies chills or fever(s) Eyes Eyes: Denies blurry vision or change in vision ENT ENT ED: Denies rhinorrhea Cardiovascular Cardiovascular: Reports chest pain; Denies as per HPI, palpitations or racing heartbeat Respiratory/Chest Respiratory/Chest: Denies cough or dyspnea Gastrointestinal Gastrointestinal: Denies abdominal pain, nausea or vomiting Genitourinary Genitourinary ED: Denies dysuria, hematuria or urinary frequency Musculoskeletal Musculoskeletal: Denies arthralgias or myalgias Integumentary Denies abscess or rash Neurologic Neurologic: Denies headache(s) or paresthesias Psychiatric Psychiatric: Reports anxiety; Denies depression EXAM Physical Exam Const Vital Signs: 06/16/21 09:35 06/16/21 09:36 06/16/21 09:41 Temperature 96.6 F L 98.2 F Temperature Source Temporal Oral Pulse Rate 59 L 55 L Respiratory Rate 18 18 Blood Pressure 142/67 H 132/88 H Blood Pressure Mean 92 102 Pulse Ox 100 99 Oxygen Delivery Method Room Air Room Air Room Air 06/16/21 10:05 06/16/21 11:18 Temperature Temperature Source Pulse Rate 53 L 42 L Respiratory Rate 18 19 H Blood Pressure 102/56 L 120/56 L Blood Pressure Mean 71 77 Pulse Ox 98 95 Oxygen Delivery Method Room Air Room Air Positive obese General Appearance ED: NAD; Negative for pallor Nutritional Appearance: obese HEENT Reports moist mucous membranes normocephalic and atraumatic Eyes PERRL and EOMs intact bilaterally General Eye ED: Negative for pale conjunctiva or scleral icterus Resp normal respiratory effort Effort and Inspection: respiratory distress Cardio regular rate and regular rhythm Extremity normal to inspection General Extremety ED: Negative for edema or tenderness General Extremity: Negative for edema Neuro oriented x3 Sensorium / Orientation: awake and alert Psych mental status grossly normal Skin no rashes or lesions noted General Skin Exam: Negative for jaundice or pallor Heart Score History: Moderately Suspicious ECG: Normal Age: </= 45 years Risk Factors: >/= 3 Risk Factors or History of CAD Troponin: </= Normal Limit Score: 3 MDM MDM MDM Narrative Medical decision making narrative: Patient presenting with chest pain which has been intermittent. She does have concerned it could possibly due to stress versus changing from Brilinta to Plavix. Patient EKG on arrival showed a sinus bradycardia with a first-degree AV block and a ventricular rate of 55 bpm on my interpretation. chest x-ray on my interpretation shows no acute cardiopulmonary process however there is some scarring left upper lobe and the radiologist does agree. CBC and BMP are unremarkable. Patient's D-dimer is elevated at 0.78 and patient did have a CTA of the chest which showed no acute dissection or pulmonary emboli. Patient's heart score is 3. Her first troponin is 43.9, second troponin is 42.6. Given the negative work-up I feel patient is stable to be discharged home. She will follow up outpatient with Dr. Michel. Patient stable discharge at this time. Impression: 1. Chest pain Lab Data Attestation: I reviewed the patient's lab results. Labs: Laboratory Results - last 24 hr 06/16/21 06/16/21 06/16/21 09:53 09:53 09:53 WBC 6.1 RBC 5.05 Hgb 14.8 Hct 45.3 MCV 89.7 MCH 29.3 MCHC 32.7 RDW Std Deviation 53.0 H RDW Coeff of Estella 16.0 H Plt Count 248 MPV 9.8 Immature Gran % (Auto) 0.200 Neut % (Auto) 57.6 Lymph % (Auto) 26.6 [place] % (Auto) 8.9 Eos % (Auto) 5.4 H Baso % (Auto) 1.3 H Absolute Neuts (auto) 3.5 Absolute Lymphs (auto) 1.62 Nucleated RBC % 0 D-Dimer Quant (PE/DVT) 0.78 H* Sodium 136 Potassium 4.4 Chloride 108 H Carbon Dioxide 26.0 Anion Gap 2 L BUN 13 Creatinine 0.70 Estim Creat Clear Calc 93.50 Est GFR (MDRD) Af Amer 114 Est GFR (MDRD) Non-Af 94 BUN/Creatinine Ratio 18.6 Glucose 102 Calcium 8.6 Troponin I High Sens 43.9 06/16/21 11:57 WBC RBC Hgb Hct MCV MCH MCHC RDW Std Deviation RDW Coeff of Estella Plt Count MPV Immature Gran % (Auto) Neut % (Auto) Lymph % (Auto) [place] % (Auto) Eos % (Auto) Baso % (Auto) Absolute Neuts (auto) Absolute Lymphs (auto) Nucleated RBC % D-Dimer Quant (PE/DVT) Sodium Potassium Chloride Carbon Dioxide Anion Gap BUN Creatinine Estim Creat Clear Calc Est GFR (MDRD) Af Amer Est GFR (MDRD) Non-Af BUN/Creatinine Ratio Glucose Calcium Troponin I High Sens 42.6 Radiography Diagnostic Testing: Radiology Impression Chest X-Ray 06/16/21 09:39 IMPRESSION: The opacity in the left upper lobe which likely represents scarring or atelectasis. Otherwise, clear lungs. Electronically Signed: Paramjit Erwin MD at 11:07 EDT Tel , Service support , Chest CTA 06/16/21 10:12 IMPRESSION: Normal CTA chest examination, without a demonstrated pulmonary embolism or arterial dissection. Linear opacity in the left upper lobe which likely represents scarring or atelectasis. Otherwise, clear lungs. Electronically Signed: Paramjit Erwin MD at 11:42 EDT Tel , Service support , Discharge Plan Triage Chief Complaint: Chest Pain ED Provider: Oleg Collins Dx/Rx/DC Orders Instructions: ED Chest Pain, Noncardiac Prescriptions: No Action clopidogrel [Plavix] 75 mg tablet 75 mg PO DAILY Qty: 90 RF: 6 aspirin 81 MG tablet,chewable 81 mg PO DAILY@0800 RF: 0 atorvastatin 40 mg Tablet 40 mg PO QHS Qty: 90 RF: 0 metoprolol tartrate 25 mg tablet 25 mg PO BID Qty: 180 RF: 0 losartan 25 mg tablet 25 mg PO DAILY Qty: 90 RF: 0 Primary Care Provider: Care Physician,No Primary Referrals: Joni Michel MD [STAFF PHYSICIAN] - As soon as possible Care Physician,No Primary [Primary Care Provider] - Disposition Disposition: Home, Self Care
[2021-06-16 10:00] LABS: Absolute Lymphocyte Count 1.62 X10^3/uL (0.83-4.51); Absolute Neutrophil Count 3.5 X10^3/uL (2.0-7.7); Basophil# 0.08 X10^3/uL; Basophil% 1.3 % (0-1); Eosinophil# 0.33 X10^3/uL; Eosinophils% 5.4 % (0-5); Hematocrit 45.3 % (37-47); Hemoglobin 14.8 g/dL (12.0-15.0); Lymphocyte # 1.62 X10^3/ul (0.83-4.51); Lymphocyte % 26.6 % (19-41); Mean Corp Hgb Conc 32.7 g/dL (32-36); Mean Corpuscular Hgb 29.3 pg (27.0-32.0); Mean Corpuscular Volume 89.7 fL (81-99); Mean Platelet Vol. 9.8 fl (6.2-12.0); Monocyte# 0.54 X10^3/uL; Monocyte% 8.9 % (0-10); NRBC Flagged by Analyzer 0 % (0-5); Neutrophil # 3.51 X10^3/uL (2.7-7.7); Neutrophil % 57.6 % (47-70); Platelet Count 248 K/mm3 (150-450); Red Blood Count 5.05 M/mm3 (4.2-5.4); White Blood Count 6.1 K/mm3 (4.4-11.0)
[2021-06-16] MEDS: Aspirin 81 MG TAB.CHEW 324 MG PO (10:02)
[2021-06-16 10:05] VITALS: BP 102/56; PULSE 53; RESP 18; O2SAT 98
[2021-06-16 10:11] LABS: D-Dimer Quantitative (DVT/PE) 0.78 FEU/ug/m (0.27-0.49)
--- NOTE | 2021-06-16 10:12 | CT_ITS ---
STUDY: CTA CHEST REASON FOR EXAM: Female, 50 years old. Chest pain RADIATION DOSAGE (If Supplied By Facility): CTDIvol = ( 7.52 ) mGy, DLP = ( 517.37 ) mGycm TECHNIQUE: The examination was performed with the intravenous administration of IV 100mL Isovue-370. Post-processing of the angiographic images was performed, with multiplanar reformation and 3D reconstruction. Individualized dose optimization techniques were used for this CT. COMPARISON: None. FINDINGS: Normal enhancement of the main pulmonary artery and right and left pulmonary arteries. Normal enhancement of the bilateral peripheral pulmonary arteries. There is no demonstrated pulmonary embolism. Normal thoracic aorta and visualized great vessels. There is no demonstrated aortic dissection. Normal heart and pericardium. Normal mediastinum. Normal hilar regions. Normal visualized trachea and bronchi. The lungs are well expanded. There is linear opacity in the left upper lobe which likely represents scarring or atelectasis. There are no pulmonary infiltrates. Normal pleura. Normal chest wall structures. Normal osseous structures. Normal visualized upper abdomen. CT/CTA Chest W/WO Contrast IMPRESSION: Normal CTA chest examination, without a demonstrated pulmonary embolism or arterial dissection. Linear opacity in the left upper lobe which likely represents scarring or atelectasis. Otherwise, clear lungs. Electronically Signed: Paramjit Erwin MD at 11:42 EDT Tel , Service support ,
[2021-06-16 10:15] LABS: Anion Gap 2 (5-15); BUN 13 mg/dL (7-18); BUN/Creat Ratio 18.6 RATIO (10-20); Calcium,Total 8.6 mg/dL (8.5-10.1); Chloride 108 mmol/L (98-107); EST Glomerular Filtration Rate 94 mL/min (>60); Est Glom Filt Rate - Afr Amer 114 mL/min (>60); Glucose 102 mg/dL (74-106); Potassium 4.4 mmol/L (3.5-5.1); Sodium Level 136 mmol/L (136-145); Troponin-I HS 43.9 pg/mL (3.0-53.7)
[2021-06-16 11:18] VITALS: BP 120/56; PULSE 42; RESP 19; O2SAT 95
[2021-06-16 12:21] LABS: Troponin-I HS 42.6 pg/mL (3.0-53.7)
[2021-06-16 12:40] VITALS: BP 102/69; PULSE 62; RESP 15; O2SAT 98
== END 2021-06-16 12:43 | disposition home or self-care (01) ==
PROVIDERS: Emergency Provider Student in an Organized Health Care Education/Training Program
DX: R07.9 Chest pain, unspecified (principal); I25.10 Atherosclerotic heart disease of native coronary artery without angina pectoris; I10 Essential (primary) hypertension; F17.210 Nicotine dependence, cigarettes, uncomplicated; E66.9 Obesity, unspecified; Z79.02 Long term (current) use of antithrombotics/antiplatelets; Z79.899 Other long term (current) drug therapy
CPT/HCPCS: 71045; 71275; 80048; 84484; 85025; 85379; 93005; 99285; Q9967; A4216

== ENCOUNTER 2021-09-18 22:19 | Emergency (ER) | payer SELFPAY ==
[2021-09-18 22:21] VITALS: BP 126/72; PULSE 90; RESP 18; TEMP 36.2; O2SAT 98; BMI 35.4
--- NOTE | 2021-09-18 22:37 | US_ITS ---
HISTORY: vaginal bleeding with clots EXAMINATION: US Pelvis Non-OB Complete TECHNIQUE: Transabdominal and transvaginal (for optimal evaluation of the adnexa) pelvic ultrasound was performed. Grayscale, spectral waveform, and color flow Doppler evaluation of the adnexa. COMPARISON: None FINDINGS: UTERUS: anteverted. The uterus measures 24.2 x 17.1 x 10.2 cm. Large midline hypoechoic lesion consistent with fibroid measures 15.7 x 11.7 x 8.4 cm The endometrium is obscured by the large midline fibroid. RIGHT OVARY: Not visualized. LEFT OVARY: 5.3 x 4.5 x 3.6 cm. Anechoic cyst measures up to 3.3 cm. There is normal arterial inflow and venous outflow present in the left ovary. FREE FLUID: None. US/Transvaginal Non- IMPRESSION: Findings consistent with large uterine fibroid obscuring the endometrium. Further evaluation best pursued by pelvic MRI. at 0008 Reported and signed by: Peter Livingston MD Electronically Signed: Peter Livingston MD at 0:07 EDT Tel , Service support ,
[2021-09-18 22:41] VITALS: BP 79/59; BP 89/55; BP 97/63; PULSE 85; PULSE 89; PULSE 98
--- NOTE | 2021-09-18 22:44 | EDS_ITS ---
HPI <Dr. James Walsh DO - Last Filed: 09/18/21 23:56> HPI - Female History of Present Illness Chief Complaint: Vag Bleeding Narrative Narrative: Patient is a 51-year-old female who states that over the past year she has been perimenopausal. She states she is gone through periods where she will not have a menstrual cycle and then a few months later have a heavy prolonged period. She states she is currently on aspirin and Plavix. She states yesterday she began with vaginal bleeding that was heavier nature than the last previous bouts of her abnormal menstrual cycle. She states today the bleeding has persisted and even got to the point where she has been dizzy and had 2 episodes of passing out when she stood up. She states secondary the persistent heavier bleeding than normal as well as the fact that she passed out she presents to the hospital for evaluation. PFSH <Dr. James Walsh DO - Last Filed: 09/18/21 23:56> [facility] Medical History Atherosclerosis of coronary artery without angina pectoris Essential (primary) hypertension History of non-ST elevation myocardial infarction (NSTEMI) (06/2014) Hypothyroidism Kidney stones Nicotine dependence Home Medications aspirin 81 mg PO DAILY@0800 06/09/19 [History Last Taken 03/28/21] clopidogrel 75 mg tablet 75 mg PO DAILY #90 tab 05/02/21 [Rx Last Taken Unknown] atorvastatin 40 mg tablet 40 mg PO QHS #90 tab 07/11/21 [Rx Last Taken Unknown] losartan 25 mg tablet 25 mg PO DAILY #90 tab 07/11/21 [Rx Last Taken Unknown] metoprolol tartrate 25 mg tablet 25 mg PO BID #180 tab 07/11/21 [Rx Last Taken Unknown] Allergy/AdvReac Type Severity Reaction Status Date / Time No Known Allergies Allergy Verified 06/16/21 09:40 Surgical History Cataract extraction status of right eye History of cholecystectomy History of coronary artery stent placement (03/31/21) Hx of tubal ligation Social History Smoking Status: Current every day smoker tobacco type: cigarettes details: Denied drinking alcohol. ROS <Dr. James Andes, DO - Last Filed: 09/18/21 23:56> ROS ED Constitutional Constitutional ED: Denies chills or fever(s) ENT ENT ED: Denies sore throat Cardiovascular Cardiovascular: Reports other Details: Positive syncope ; Denies chest pain, palpitations or racing heartbeat Respiratory/Chest Respiratory/Chest: Denies cough or dyspnea Gastrointestinal Gastrointestinal: Denies abdominal pain, diarrhea, nausea or vomiting Genitourinary Genitourinary ED: Reports other Details: Positive vaginal bleeding ; Denies dysuria Musculoskeletal Musculoskeletal: Denies myalgias Integumentary Denies rash Neurologic Neurologic: Denies headache(s) Hematologic/Lymphatic Hematologic/Lymphatic: Reports easy bleeding and easy bruising EXAM <Dr. James Walsh, DO - Last Filed: 09/18/21 23:56> Physical Exam Const Vital Signs: 09/18/21 22:21 09/18/21 22:41 09/18/21 23:41 Temperature 97.2 F L Temperature Source Temporal Pulse Rate 90 73 Pulse Rate [Lying] 85 Pulse Rate [Sitting] 89 Pulse Rate [Standing] 98 Respiratory Rate 18 14 Blood Pressure 126/72 H 104/56 L Blood Pressure [Lying] 89/55 L Blood Pressure [Sitting] 97/63 Blood Pressure [Standing] 79/59 L Blood Pressure Mean 90 72 Blood Pressure Mean [Lying] 66 Blood Pressure Mean [Sitting] 74 Blood Pressure Mean [Standing] 65 Pulse Ox 98 98 Oxygen Delivery Method Room Air Room Air Positive well nourished, well developed and obese General Appearance ED: well developed and pallor Nutritional Appearance: obese HEENT Reports moist mucous membranes Eyes PERRL and EOMs intact bilaterally General Eye ED: Yes pale conjunctiva Neck supple Resp normal respiratory effort and clear to auscultation bilaterally Cardio regular rate and regular rhythm Jugular Venous Distention: other Other Details: Radial pulses are plus 2 out of 4 bilaterally they are equal and symmetric GI normal to inspection, nondistended, normoactive bowel sounds, soft to palpation, non-tender, non-distended and no masses GI Narrative: No guarding or rigidity no pulsatile mass Auscultation: normoactive bowel sounds Palpation: soft Narrative: Patient deferred Extremity normal to inspection and full ROM Neuro oriented x3 and CN's II-XII intact bilaterally Sensorium / Orientation: alert Psych mental status grossly normal Skin no rashes or lesions noted General Skin Exam: pallor <Dr. Chema Bartlett, DO - Last Filed: 09/19/21 00:43> Physical Exam Const Vital Signs: 09/18/21 22:21 09/18/21 22:41 09/18/21 23:41 Temperature 97.2 F L Temperature Source Temporal Pulse Rate 90 73 Pulse Rate [Lying] 85 Pulse Rate [Sitting] 89 Pulse Rate [Standing] 98 Respiratory Rate 18 14 Blood Pressure 126/72 H 104/56 L Blood Pressure [Lying] 89/55 L Blood Pressure [Sitting] 97/63 Blood Pressure [Standing] 79/59 L Blood Pressure Mean 90 72 Blood Pressure Mean [Lying] 66 Blood Pressure Mean [Sitting] 74 Blood Pressure Mean [Standing] 65 Pulse Ox 98 98 Oxygen Delivery Method Room Air Room Air MDM <Dr. James Walsh, DO - Last Filed: 09/18/21 23:56> MDM MDM Narrative Medical decision making narrative: Patient presented to the ER afebrile with stable blood pressure and heart rate. She reported heavy vaginal bleeding but states that this is not completely abnormal for her although bleeding from yesterday was more severe than she is used to. She also had reported 2 bouts of syncope with standing up which was concerning for orthostasis. As she is pale as well there is concern she may need a blood transfusion so basic labs were obtained. Patient's hemoglobin is stable at 12.3 her platelets and bleeding times are also normal. She had orthostatic vital signs obtained which were technically negative. An ultrasound was also obtained to check for a thickened endometrium or secondary cause of bleeding. At this time as the patient does not require blood transfusion I do not feel there is need for admission to the hospital. As patient did report bouts of syncope with standing recently after her work-up she will be ambulated and as long as she has a steady gait will be safe for discharge with outpatient [employer] follow-up. Lab Data Attestation: I reviewed the patient's lab results. Labs: Laboratory Results - last 24 hr 09/18/21 09/18/21 09/18/21 22:55 22:55 22:55 WBC 7.7 RBC 4.06 L Hgb 12.3 Hct 36.6 L MCV 90.1 MCH 30.3 MCHC 33.6 RDW Std Deviation 44.9 H RDW Coeff of Estella 13.7 Plt Count 218 MPV 10.1 Immature Gran % (Auto) 0.300 Neut % (Auto) 62.6 Lymph % (Auto) 27.5 [place] % (Auto) 4.8 Eos % (Auto) 3.8 Baso % (Auto) 1.0 Absolute Neuts (auto) 4.8 Absolute Lymphs (auto) 2.12 Nucleated RBC % 0 PT 13.9 INR 1.1 APTT 27.2 Sodium 138 Potassium 4.1 Chloride 106 Carbon Dioxide 26.0 Anion Gap 6 BUN 17 Creatinine 0.96 Estim Creat Clear Calc 67.42 Est GFR (MDRD) Af Amer 79 Est GFR (MDRD) Non-Af 65 BUN/Creatinine Ratio 17.7 Glucose 180 H Calcium 8.8 Blood Type Antibody Screen 09/18/21 22:55 WBC RBC Hgb Hct MCV MCH MCHC RDW Std Deviation RDW Coeff of Estella Plt Count MPV Immature Gran % (Auto) Neut % (Auto) Lymph % (Auto) [place] % (Auto) Eos % (Auto) Baso % (Auto) Absolute Neuts (auto) Absolute Lymphs (auto) Nucleated RBC % PT INR APTT Sodium Potassium Chloride Carbon Dioxide Anion Gap BUN Creatinine Estim Creat Clear Calc Est GFR (MDRD) Af Amer Est GFR (MDRD) Non-Af BUN/Creatinine Ratio Glucose Calcium Blood Type A POSITIVE Antibody Screen NEGATIVE Radiography Diagnostic Testing: Clinical Impression(s) from Imaging Studies Transvaginal US 09/18/21 22:37 IMPRESSION: Findings consistent with large uterine fibroid obscuring the endometrium. Further evaluation best pursued by pelvic MRI. at 0008 Reported and signed by: Peter Livingston MD Electronically Signed: Peter Livingston MD at 0:07 EDT Tel , Service support , <Dr. Chema Bartlett, DO - Last Filed: 09/19/21 00:43> [facility] Narrative Medical decision making narrative: Care of the patient was turned over to me pending pelvic ultrasound. This showed a large uterine fibroid. Patient was advised of her findings. Patient was advised that this could be what is causing her vaginal bleeding. Patient was instructed to follow-up with her [employer] in 3 to 5 days. Patient understood and was agreeable with the plan. All questions were answered. Lab Data Attestation: I reviewed the patient's lab results. Labs: Laboratory Results - last 24 hr 09/18/21 09/18/21 09/18/21 22:55 22:55 22:55 WBC 7.7 RBC 4.06 L Hgb 12.3 Hct 36.6 L MCV 90.1 MCH 30.3 MCHC 33.6 RDW Std Deviation 44.9 H RDW Coeff of Estella 13.7 Plt Count 218 MPV 10.1 Immature Gran % (Auto) 0.300 Neut % (Auto) 62.6 Lymph % (Auto) 27.5 [place] % (Auto) 4.8 Eos % (Auto) 3.8 Baso % (Auto) 1.0 Absolute Neuts (auto) 4.8 Absolute Lymphs (auto) 2.12 Nucleated RBC % 0 PT 13.9 INR 1.1 APTT 27.2 Sodium 138 Potassium 4.1 Chloride 106 Carbon Dioxide 26.0 Anion Gap 6 BUN 17 Creatinine 0.96 Estim Creat Clear Calc 67.42 Est GFR (MDRD) Af Amer 79 Est GFR (MDRD) Non-Af 65 BUN/Creatinine Ratio 17.7 Glucose 180 H Calcium 8.8 Blood Type Antibody Screen 09/18/21 22:55 WBC RBC Hgb Hct MCV MCH MCHC RDW Std Deviation RDW Coeff of Estella Plt Count MPV Immature Gran % (Auto) Neut % (Auto) Lymph % (Auto) [place] % (Auto) Eos % (Auto) Baso % (Auto) Absolute Neuts (auto) Absolute Lymphs (auto) Nucleated RBC % PT INR APTT Sodium Potassium Chloride Carbon Dioxide Anion Gap BUN Creatinine Estim Creat Clear Calc Est GFR (MDRD) Af Amer Est GFR (MDRD) Non-Af BUN/Creatinine Ratio Glucose Calcium Blood Type A POSITIVE Antibody Screen NEGATIVE Radiography Diagnostic Testing: Clinical Impression(s) from Imaging Studies Transvaginal US 09/18/21 22:37 IMPRESSION: Findings consistent with large uterine fibroid obscuring the endometrium. Further evaluation best pursued by pelvic MRI. at 0008 Reported and signed by: Peter Livingston MD Electronically Signed: Peter Livingston MD at 0:07 EDT Tel , Service support , Discharge Plan Triage Chief Complaint: Vag Bleeding ED Provider: James Walsh Dx/Rx/DC Orders Clinical Impression: Menorrhagia with irregular cycle Instructions: ED Heavy Menstrual Bleeding Prescriptions: No Action clopidogrel [Plavix] 75 mg tablet 75 mg PO DAILY Qty: 90 RF: 6 aspirin 81 MG tablet,chewable 81 mg PO DAILY@0800 RF: 0 atorvastatin 40 mg tablet 40 mg PO QHS Qty: 90 RF: 3 losartan 25 mg tablet 25 mg PO DAILY Qty: 90 RF: 3 metoprolol tartrate 25 mg tablet 25 mg PO BID Qty: 180 RF: 3 Primary Care Provider: Care Physician,No Primary Referrals: Nieves Galindo MD [STAFF PHYSICIAN] - 3-5 Days Care Physician,No Primary [Primary Care Provider] - Disposition Disposition: Home, Self Care
[2021-09-18 23:05] LABS: Absolute Lymphocyte Count 2.12 X10^3/uL (0.83-4.51); Absolute Neutrophil Count 4.8 X10^3/uL (2.0-7.7); Basophil# 0.08 X10^3/uL; Eosinophil# 0.29 X10^3/uL; Eosinophils% 3.8 % (0-5); Hematocrit 36.6 % (37-47); Hemoglobin 12.3 g/dL (12.0-15.0); Lymphocyte # 2.12 X10^3/ul (0.83-4.51); Lymphocyte % 27.5 % (19-41); Mean Corp Hgb Conc 33.6 g/dL (32-36); Mean Corpuscular Hgb 30.3 pg (27.0-32.0); Mean Corpuscular Volume 90.1 fL (81-99); Mean Platelet Vol. 10.1 fl (6.2-12.0); Monocyte# 0.37 X10^3/uL; Monocyte% 4.8 % (0-10); NRBC Flagged by Analyzer 0 % (0-5); Neutrophil # 4.84 X10^3/uL (2.7-7.7); Neutrophil % 62.6 % (47-70); Platelet Count 218 K/mm3 (150-450); RBC Distribution Width CV 13.7 % (11.6-14.6); RBC Distribution Width SD 44.9 fl (35.1-43.9); Red Blood Count 4.06 M/mm3 (4.2-5.4); White Blood Count 7.7 K/mm3 (4.4-11.0)
[2021-09-18 23:14] LABS: International Normalized Ratio 1.1; Prothrombin Time (Protime)PT. 13.9 SECONDS (11.7-14.9)
[2021-09-18 23:15] LABS: Partial Thromboplast Time 27.2 Seconds (24.1-36.2)
[2021-09-18 23:18] LABS: Anion Gap 6 (5-15); BUN 17 mg/dL (7-18); BUN/Creat Ratio 17.7 RATIO (10-20); Calcium,Total 8.8 mg/dL (8.5-10.1); Chloride 106 mmol/L (98-107); Creatinine, Serum 0.96 mg/dL (0.55-1.02); EST Glomerular Filtration Rate 65 mL/min (>60); Est Glom Filt Rate - Afr Amer 79 mL/min (>60); Estimated Creatinine Clearance 67.42 ml/min; Glucose 180 mg/dL (74-106); Potassium 4.1 mmol/L (3.5-5.1); Sodium Level 138 mmol/L (136-145)
[2021-09-18] MEDS: 0.9% Normal Saline 1,000 ML 999 ML IV (23:28)
[2021-09-18 23:41] VITALS: BP 104/56; PULSE 73; RESP 14; O2SAT 98
[2021-09-19 01:15] VITALS: BP 109/63; PULSE 67; RESP 18; O2SAT 97
== END 2021-09-19 01:00 | disposition home or self-care (01) ==
PROVIDERS: Emergency Provider Emergency Medicine
DX: N92.0 Excessive and frequent menstruation with regular cycle (principal); D25.9 Leiomyoma of uterus, unspecified; I25.10 Atherosclerotic heart disease of native coronary artery without angina pectoris; I10 Essential (primary) hypertension; E03.9 Hypothyroidism, unspecified; I25.2 Old myocardial infarction; F17.210 Nicotine dependence, cigarettes, uncomplicated; E66.9 Obesity, unspecified; Z79.02 Long term (current) use of antithrombotics/antiplatelets; Z79.899 Other long term (current) drug therapy
CPT/HCPCS: 76830; 80048; 85025; 85610; 85730; 86850; 86900; 86901; 96360; 96361; 99284; J7030; A4216

== ENCOUNTER 2021-09-22 10:37 | Emergency (ER) | payer SELFPAY ==
[2021-09-22] VITALS (14 sets, daily range): BP systolic 95–127; BP diastolic 44–71; PULSE 62–81; RESP 14–18; TEMP 36.6–36.9; O2SAT 96–100; BMI 35.4
--- NOTE | 2021-09-22 11:28 | EKG12_ITS ---
Test Reason : Blood Pressure : / mmHG Vent. Rate : 070 BPM Atrial Rate : 070 BPM P-R Int : 188 ms QRS Dur : 070 ms QT Int : 362 ms P-R-T Axes : 052 060 082 degrees QTc Int : 390 ms Normal sinus rhythm Nonspecific T wave abnormality Abnormal ECG Confirmed by KOLE VALDEZ, HARMAN ([id number]), acquisitions editor STEPHANIE THOMPSON ([id number]) on 09/24/2021 9:13:23 AM Referred By: BJORN Confirmed By:HARMAN SHARIF MD
[2021-09-22 11:47] LABS: Absolute Lymphocyte Count 1.67 X10^3/uL (0.83-4.51); Basophil# 0.04 X10^3/uL; Basophil% 0.7 % (0-1); Eosinophil# 0.25 X10^3/uL; Eosinophils% 4.6 % (0-5); Hematocrit 17.1 % (37-47); Lymphocyte # 1.67 X10^3/ul (0.83-4.51); Mean Corp Hgb Conc 32.7 g/dL (32-36); Mean Corpuscular Hgb 30.3 pg (27.0-32.0); Mean Corpuscular Volume 92.4 fL (81-99); Mean Platelet Vol. 9.4 fl (6.2-12.0); Monocyte# 0.35 X10^3/uL; Monocyte% 6.5 % (0-10); NRBC Flagged by Analyzer 1.1 % (0-5); Neutrophil % 55.9 % (47-70); POSITIVE COUNT YES; Platelet Count 165 K/mm3 (150-450); RBC Distribution Width CV 14.8 % (11.6-14.6); RBC Distribution Width SD 47.8 fl (35.1-43.9); Red Blood Count 1.85 M/mm3 (4.2-5.4); White Blood Count 5.4 K/mm3 (4.4-11.0)
[2021-09-22 11:52] LABS: Hemoglobin 5.6 g/dL (12.0-15.0)
[2021-09-22 12:06] LABS: ALB/GLOB Ratio 0.8 RATIO (0.9-2.4); AST(SGOT) 12 U/L (15-37); Alanine Aminotransfer ALT/SGPT 22 U/L (13-56); Albumin, Serum 2.6 g/dL (3.2-5.0); Alkaline Phosphatase 67 U/L (45-117); Anion Gap 3 (5-15); BUN 12 mg/dL (7-18); BUN/Creat Ratio 17.3 RATIO (10-20); Calcium,Total 8.1 mg/dL (8.5-10.1); Chloride 110 mmol/L (98-107); Creatinine, Serum 0.69 mg/dL (0.55-1.02); EST Glomerular Filtration Rate 95 mL/min (>60); Est Glom Filt Rate - Afr Amer 115 mL/min (>60); Globulin 3.3 g/dL (2.2-4.2); Glucose 116 mg/dL (74-106); Potassium 4.2 mmol/L (3.5-5.1); Protein, Total 5.9 g/dL (6.4-8.2); Sodium Level 138 mmol/L (136-145); Troponin-I HS 30 pg/mL (3.0-54.0)
--- NOTE | 2021-09-22 13:57 | EX.ED.DYSGE1 ---
HPI History of Present Illness Chief Complaint: Dizziness Narrative Narrative: 51-year-old female with heavy menstrual cycle presenting with vaginal bleeding. She states she actually stopped bleeding yesterday but has had several episodes where she had heavy menstrual bleeding. Patient states that she was seen in the ER a few days ago and was diagnosed with uterine fibroids. She is on aspirin and Plavix and she is in cardiac rehab currently for recent stent placement in the RCA 03/31/2021. Patient states that she has felt a little bit lightheaded. Her family's been telling her she looks pale. Patient was initially given follow-up with gynecology but has not been able to get an appointment because she is not established. [facility] Medical History Atherosclerosis of coronary artery without angina pectoris Essential (primary) hypertension History of non-ST elevation myocardial infarction (NSTEMI) (06/2014) Hypothyroidism Kidney stones Nicotine dependence Home Medications aspirin 81 mg PO DAILY@0800 06/09/19 [History Last Taken 03/28/21] clopidogrel 75 mg tablet 75 mg PO DAILY #90 tab 05/02/21 [Rx Last Taken Unknown] atorvastatin 40 mg tablet 40 mg PO QHS #90 tab 07/11/21 [Rx Last Taken Unknown] losartan 25 mg tablet 25 mg PO DAILY #90 tab 07/11/21 [Rx Last Taken Unknown] metoprolol tartrate 25 mg tablet 25 mg PO BID #180 tab 07/11/21 [Rx Last Taken Unknown] norethindrone acetate [Aygestin] 5 mg PO TID #21 tab 09/22/21 [Rx Last Taken Unknown] Allergy/AdvReac Type Severity Reaction Status Date / Time No Known Allergies Allergy Verified 09/22/21 10:41 Surgical History Cataract extraction status of right eye History of cholecystectomy History of coronary artery stent placement (03/31/21) Hx of tubal ligation Social History Smoking Status: Current every day smoker tobacco type: cigarettes details: Denied drinking alcohol. ROS ROS ED Constitutional Constitutional ED: Denies chills, fever(s) or subjective Eyes Eyes: Denies blurry vision or diplopia ENT ENT ED: Denies rhinorrhea or sore throat Cardiovascular Cardiovascular: Denies chest pain or palpitations Respiratory/Chest Respiratory/Chest: Reports dyspnea on exertion; Denies cough or dyspnea Gastrointestinal Gastrointestinal: Denies abdominal pain, nausea or vomiting Genitourinary Genitourinary ED: Reports other Details: Vaginal bleeding Musculoskeletal Musculoskeletal: Denies arthralgias or myalgias Integumentary Denies rash Neurologic Neurologic: Denies headache(s) or paresthesias EXAM Physical Exam Const Vital Signs: 09/22/21 10:38 09/22/21 11:50 09/22/21 11:58 Temperature 97.8 F Temperature Source Temporal Pulse Rate 76 66 Pulse Rate [Lying] 66 Pulse Rate [Sitting] 79 Pulse Rate [Standing] 81 Respiratory Rate 18 18 Blood Pressure 127/57 H 104/52 L Blood Pressure [Lying] 104/52 L Blood Pressure [Sitting] 100/49 L Blood Pressure [Standing] 95/58 L Blood Pressure Mean 80 69 Blood Pressure Mean [Lying] 69 Blood Pressure Mean [Sitting] 66 Blood Pressure Mean [Standing] 70 Blood Pressure Source Blood Pressure Position Blood Pressure Location Pulse Ox 100 100 Oxygen Delivery Method Room Air Room Air Oxygen Flow Rate (L/min) 09/22/21 14:10 09/22/21 14:25 Temperature 97.9 F 97.9 F Temperature Source Oral Oral Pulse Rate 70 63 Pulse Rate [Lying] Pulse Rate [Sitting] Pulse Rate [Standing] Respiratory Rate 16 16 Blood Pressure 110/63 111/54 L Blood Pressure [Lying] Blood Pressure [Sitting] Blood Pressure [Standing] Blood Pressure Mean 78 73 Blood Pressure Mean [Lying] Blood Pressure Mean [Sitting] Blood Pressure Mean [Standing] Blood Pressure Source Monitor Blood Pressure Position Sitting Blood Pressure Location Right Arm Pulse Ox 100 100 Oxygen Delivery Method Nasal Cannula Nasal Cannula Oxygen Flow Rate (L/min) 2 2 Positive well nourished General Appearance ED: NAD and pallor HEENT Reports moist mucous membranes Negative for trauma Eyes PERRL and EOMs intact bilaterally General Eye ED: Yes pale conjunctiva Resp normal respiratory effort and clear to auscultation bilaterally GI normal to inspection, nondistended, normoactive bowel sounds Neuro oriented x3, CN's II-XII intact bilaterally and no sensory deficits noted Sensorium / Orientation: alert Motor Exam: strength 5/5 throughout Psych mental status grossly normal Skin General Skin Exam: pallor; Negative for jaundice MDM MDM MDM Narrative Medical decision making narrative: Patient presents with concern for worsening bleeding. Her hemoglobin is dropped to 5.6. She is not technically orthostatic although her blood pressure is low. She is symptomatic with her anemia. Patient was typed and crossed for 2 units of blood. EKG on my interpretation shows a normal sinus rhythm with a ventricular rate of 70 bpm. I reviewed her previous ultrasound which did show uterine fibroid. This is likely the source of bleeding given she is on aspirin and Plavix. Patient was discussed with Oksana Betancourt. We discussed this with the interface control officer and she recommended starting Aygestin 5 mg 3 times daily and to give her 20. I will transfuse her 2 units and they will try to obtain close follow-up within the next day or so. Patient was amenable to this. After patient's transfusion she will be discharged home. She is given return precautions. Her prescription was given. Impression: 1. Blood loss anemia 2. Menorrhagia 3. Uterine fibroid Lab Data Attestation: I reviewed the patient's lab results. Labs: Laboratory Results - last 24 hr 09/22/21 09/22/21 09/22/21 11:43 11:43 11:43 WBC 5.4 RBC 1.85 L Hgb 5.6 L* Hct 17.1 L MCV 92.4 MCH 30.3 MCHC 32.7 RDW Std Deviation 47.8 H RDW Coeff of Estella 14.8 H Plt Count 165 MPV 9.4 Immature Gran % (Auto) 1.300 H Neut % (Auto) 55.9 Lymph % (Auto) 31.0 [place] % (Auto) 6.5 Eos % (Auto) 4.6 Baso % (Auto) 0.7 Absolute Neuts (auto) 3.0 Absolute Lymphs (auto) 1.67 Nucleated RBC % 1.1 Sodium 138 Potassium 4.2 Chloride 110 H Carbon Dioxide 25.0 Anion Gap 3 L BUN 12 Creatinine 0.69 Estim Creat Clear Calc 93.80 Est GFR (MDRD) Af Amer 115 Est GFR (MDRD) Non-Af 95 BUN/Creatinine Ratio 17.3 Glucose 116 H Calcium 8.1 L Total Bilirubin 0.40 AST 12 L ALT 22 Alkaline Phosphatase 67 Troponin I High Sens 30 Total Protein 5.9 L Albumin 2.6 L Globulin 3.3 Albumin/Globulin Ratio 0.8 L Blood Type A POSITIVE Antibody Screen NEGATIVE Crossmatch 09/22/21 11:43 WBC RBC Hgb Hct MCV MCH MCHC RDW Std Deviation RDW Coeff of Estella Plt Count MPV Immature Gran % (Auto) Neut % (Auto) Lymph % (Auto) [place] % (Auto) Eos % (Auto) Baso % (Auto) Absolute Neuts (auto) Absolute Lymphs (auto) Nucleated RBC % Sodium Potassium Chloride Carbon Dioxide Anion Gap BUN Creatinine Estim Creat Clear Calc Est GFR (MDRD) Af Amer Est GFR (MDRD) Non-Af BUN/Creatinine Ratio Glucose Calcium Total Bilirubin AST ALT Alkaline Phosphatase Troponin I High Sens Total Protein Albumin Globulin Albumin/Globulin Ratio Blood Type Antibody Screen Crossmatch See Detail Discharge Plan Triage Chief Complaint: Dizziness ED Provider: Oleg Collins Dx/Rx/DC Orders Instructions: ED Anemia, Type Not Specified (Adult), ED Heavy Menstrual Bleeding, ED Uterine Fibroids Prescriptions: New norethindrone acetate [Aygestin] 5 mg tablet 5 mg PO TID Qty: 21 RF: 0 No Action clopidogrel [Plavix] 75 mg tablet 75 mg PO DAILY Qty: 90 RF: 6 aspirin 81 MG tablet,chewable 81 mg PO DAILY@0800 RF: 0 atorvastatin 40 mg tablet 40 mg PO QHS Qty: 90 RF: 3 losartan 25 mg tablet 25 mg PO DAILY Qty: 90 RF: 3 metoprolol tartrate 25 mg tablet 25 mg PO BID Qty: 180 RF: 3 Primary Care Provider: Care Physician,No Primary Referrals: Nieves Galindo MD [STAFF PHYSICIAN] - As soon as possible (I discussed your case with Oksana Betancourt) Care Physician,No Primary [Primary Care Provider] - Disposition Disposition: Home, Self Care
--- NOTE | 2021-09-22 18:51 | ED.RN ---
a new tubing set was used for the second unit of blood.
[2021-09-23 14:53] LABS: Pathologist Review Reviewed
== END 2021-09-22 19:08 | disposition home or self-care (01) ==
PROVIDERS: Emergency Provider Student in an Organized Health Care Education/Training Program
DX: D50.0 Iron deficiency anemia secondary to blood loss (chronic) (principal); N92.0 Excessive and frequent menstruation with regular cycle; D25.9 Leiomyoma of uterus, unspecified; I25.10 Atherosclerotic heart disease of native coronary artery without angina pectoris; I10 Essential (primary) hypertension; F17.210 Nicotine dependence, cigarettes, uncomplicated; Z79.02 Long term (current) use of antithrombotics/antiplatelets; Z79.899 Other long term (current) drug therapy
CPT/HCPCS: 80053; 84484; 85025; 86850; 86900; 86901; 86920; 86922; 93005; 99284; J7040; P9016; A4216

== ENCOUNTER → 2021-10-01 07:45 | Outpatient (CLI) | payer SELFPAY ==
[2021-10-01] VITALS (10 sets, daily range): BP systolic 101–130; BP diastolic 39–62; PULSE 59–92; RESP 16; TEMP 35.7–36.5; O2SAT 95–100; BMI 35.4
[2021-10-01] MEDS: Acetaminophen 500 MG Tablet 1000 MG PO (10:45)
[2021-10-01] MEDS: DiphenhydrAMINE 25 MG Capsule PO (10:45)
[2021-10-01] MEDS: 0.9% NaCl Peripheral Flush Adult/Peds IV (10:47)
[2021-10-01] MEDS: Furosemide 20 MG/2 ML VIAL IV (15:21)
== END ==
PROVIDERS: Referring Provider Obstetrics & Gynecology; Visit Provider Obstetrics & Gynecology
DX: D64.9 Anemia, unspecified (principal); N93.9 Abnormal uterine and vaginal bleeding, unspecified
CPT/HCPCS: 96374; 36415; 36430; 86850; 86900; 86901; 86920; 86922; J7040; P9040; A4216; J1940

== ENCOUNTER → 2021-10-03 12:37 | Outpatient (CLI) | payer SELFPAY ==
[2021-10-03 12:42] VITALS: BP 121/56; PULSE 62; RESP 16; TEMP 35.8; O2SAT 97
[2021-10-03] MEDS: 0.9% NaCl IVPB Med Flush (250 mL) 15 ML IV (12:57)
[2021-10-03] MEDS: 0.9% NaCl Peripheral Flush Adult/Peds IV (12:57)
[2021-10-03 13:27] VITALS: BP 106/53; PULSE 60; RESP 16; TEMP 35.6; O2SAT 98
== END ==
LOC: MEDOUTP 12:37
PROVIDERS: Referring Provider Obstetrics & Gynecology; Visit Provider Obstetrics & Gynecology
DX: D64.9 Anemia, unspecified (principal); N93.9 Abnormal uterine and vaginal bleeding, unspecified
CPT/HCPCS: 96365; J1756; J7050; A4216

== ENCOUNTER → 2022-05-25 | Outpatient (CLI) | payer BC, SELFPAY ==
--- NOTE | 2022-05-25 14:00 | ECHOD_ITS ---
Reason For Study: Murmur Procedure This was a 2D Doppler, Color Flow transthoracic echocardiogram. Myocardial strain analysis was performed in this exam to aid in the assessment of cardiac function. Exam performed in department. Left Ventricle Normal LV size. Left ventricular systolic function is normal. The estimated ejection fraction is 60 %. No regional wall motion abnormalities noted. Right Ventricle Normal RV size. Normal systolic function. Atria The left atrium is mildly enlarged. Normal right atrium. Patent foramen ovale. Mitral Valve Normal mitral valve. Tricuspid Valve Normal tricuspid valve. Aortic Valve Normal aortic valve. Trisinus/trileaflet aortic valve. Pulmonic Valve Normal pulmonic valve. Great Vessels Normal aortic root. The pulmonary artery is normal size. Normal inferior vena cava. Pericardium/Pleural No pericardial effusion. Medication 20 gauge I.V. with prn adaptor inserted into right arm. Performed a rapid injection of agitated mix of 9 cc saline and 1cc air to assess for atrial septal defect. MMode/2D Measurements & Calculations LVIDd: 5.0 cm IVSd: 1.0 cm CO(Teich): 5.6 l/min LVIDs: 2.8 cm LVPWd: 1.3 cm RVDd: 3.8 cm FS: 43.3 % LA dimension: 5.0 cm LAV(MOD-bp): 72.2 ml LA A4 area: 23.0 cm2 LAV(MOD-bp) Indexed: 33.0 ml/m2 LAV(MOD-sp2): 73.0 ml LAV(MOD-sp4): 71.2 ml RA A4 area: 15.3 cm2 Time Measurements MV dec time: 0.30 sec Doppler Measurements & Calculations MV E max agata: 97.9 cm/sec MV V2 max: 113.9 cm/sec MV A max agata: 98.4 cm/sec MV max P.2 mmHg MV dec slope: 329.7 cm/sec2 MV E/A: 1.00 MV V2 mean: 73.6 cm/sec MV mean P.4 mmHg MV V2 VTI: 45.9 cm Ao V2 max: 169.3 cm/sec LV V1 max: 133.6 cm/sec Ao max P.5 mmHg LV V1 max P.1 mmHg Ao V2 mean: 106.4 cm/sec LV V1 mean P.1 mmHg Ao mean P.4 mmHg LV V1 mean: 93.9 cm/sec Ao V2 VTI: 36.0 cm LV V1 VTI: 30.7 cm ECHO/Echo Complete Interpretation Summary Normal LV size. Left ventricular systolic function is normal. The estimated ejection fraction is 60 %. The left atrium is mildly enlarged. Patent foramen ovale. The global longitudinal strain is normal. The global longitudinal strain = -19 % (normal). Ordering Physician: Cristin Pettit Referring Physician: Cristin Pettit Performed By: Bj Mcfadden RCS
== END | disposition home or self-care (01) ==
PROVIDERS: Referring Provider Physician Assistant Medical; Visit Provider Physician Assistant Medical
DX: R01.1 Cardiac murmur, unspecified (principal); I25.10 Atherosclerotic heart disease of native coronary artery without angina pectoris; I10 Essential (primary) hypertension; E78.5 Hyperlipidemia, unspecified
CPT/HCPCS: 93306; A4216

== ENCOUNTER 2022-05-28 07:48 | Inpatient (IN) | payer BC, SELFPAY ==
--- NOTE | 2022-05-25 14:00 | EKG12_ITS ---
Test Reason : PREOP Blood Pressure : / mmHG Vent. Rate : 062 BPM Atrial Rate : 062 BPM P-R Int : 248 ms QRS Dur : 060 ms QT Int : 380 ms P-R-T Axes : 086 065 145 degrees QTc Int : 385 ms Sinus rhythm with 1st degree A-V block Nonspecific ST and T wave abnormality Abnormal ECG Confirmed by ELLYN VALDEZ, CLOTILDE ([id number]), online editor STEPHANIE THOMPSON ([id number]) on 05/26/2022 9:03:44 AM Referred By: AVIS Confirmed By:CLOTILDE RAGLAND MD
[2022-05-25 15:29] LABS: Hematocrit 40.6 % (37-47); Hemoglobin 12.8 g/dL (12.0-15.0); Mean Corp Hgb Conc 31.5 g/dL (32-36); Mean Corpuscular Hgb 25.2 pg (27.0-32.0); Mean Corpuscular Volume 79.9 fL (81-99); Mean Platelet Vol. 9.9 fl (6.2-12.0); Platelet Count 237 K/mm3 (150-450); RBC Distribution Width CV 18.2 % (11.6-14.6); RBC Distribution Width SD 52.6 fl (35.1-43.9); Red Blood Count 5.08 M/mm3 (4.2-5.4); White Blood Count 5.5 K/mm3 (4.4-11.0)
[2022-05-25 15:43] LABS: International Normalized Ratio 1.1; Partial Thromboplast Time 27.4 Seconds (24.1-36.2); Prothrombin Time (Protime)PT. 13.8 SECONDS (11.7-14.9)
[2022-05-25 16:04] LABS: Anion Gap 7 (5-15); BUN 10 mg/dL (7-18); BUN/Creat Ratio 14.7 RATIO (10-20); Calcium,Total 8.7 mg/dL (8.5-10.1); Chloride 107 mmol/L (98-107); Creatinine, Serum 0.68 mg/dL (0.55-1.02); EST Glomerular Filtration Rate 97 mL/min (>60); Est Glom Filt Rate - Afr Amer 117 mL/min (>60); Glucose 97 mg/dL (74-106); Potassium 4.1 mmol/L (3.5-5.1); Sodium Level 139 mmol/L (136-145)
[2022-05-25 18:14] LABS: Magnesium 2.1 mg/dL (1.6-2.6)
[2022-05-28] VITALS (15 sets, daily range): BP systolic 87–140; BP diastolic 46–96; PULSE 50–89; RESP 12–18; TEMP 36.1–37.1; O2SAT 93–99; BMI 37.3; BMI 36.6
[2022-05-28] MEDS: Insulin Lispro 100 UNIT/ML INSULN.PEN SC (09:04)
[2022-05-28] MEDS: Lactated Ringers 1,000 ML 40 ML IV ×2 (09:06→11:15)
[2022-05-28] MEDS: Phenazopyridine 95 MG Tablet 190 MG PO (09:10)
[2022-05-28] MEDS: Acetaminophen 500 MG Tablet 1000 MG PO ×3 (09:10→23:11)
[2022-05-28] MEDS: Celecoxib 200 MG Capsule 400 MG PO (09:10)
[2022-05-28] MEDS: Gabapentin 600 MG Tablet PO (09:11)
[2022-05-28] MEDS: Scopolamine 1mg/72hr Patch 1 PATCH TD (09:14)
[2022-05-28] MEDS: Enoxaparin 40 MG/0.4 ML Syringe SC (09:14)
--- NOTE | 2022-05-28 09:18 | PCM.PN.BLA ---
Progress Note UPDATE- I have seen the patient and performed any clinically relevant updates to the history and physical exam.
[2022-05-28] MEDS: Ipratropium/Albuterol Sulfate 3 ML AMPUL.NEB INHALATION (09:29)
[2022-05-28] MEDS: Cefazolin 2 GM in 0.9% Normal Saline 100 ML IV ×2 (09:45→15:46)
--- NOTE | 2022-05-28 10:05 | HYST_PTH ---
PATIENT: BRANDI MCDONALD LOC: MS3 U#:[id number] AGE/SX: 51/F ROOM: [facility]314 RE05/28/[address]: Dr. Kyleigh Saucedo MD : 1970 BED: 1 DIS: 05/29/2022 SPEC #: [id number] RECD: 05/28/22 14:25 STATUS: SAADIA SHERIN #: [id number] ASH: 05/28/22 10:[address]: Kyleigh Saucedo DEPT: SURGICAL PATHOLOGY RECD BY: Faviola Odell ENTERED: 05/29/22 08:06 SP TYPE: HYSTERECT OT DR: No Primary Care Phys Tissues: Uterus, NOS Procedures: Surgery Specimen Level V HEADER OPERATION: ERAS, supracervical abdominal hysterectomy, bilateral salpingectomy PRE-OP DIAGNOSIS: Multiple large uterine fibroids, menorrhagia, chronic iron deficiency from chronic blood loss TISSUE SUBMITTED: Uterus, bilateral fallopian tubes, right ovary MICROSCOPIC DIAGNOSIS Uterus, hysterectomy: Cervix ? nabothian cysts. Endometrium ? focal stromal hyperplasia suggestive of exogenous hormonal effect. Myometrium ? leiomyomas and adenomyosis. Fallopian tubes ? benign paratubal cysts. Right ovary ? benign epithelial inclusion cysts. AM:aden 06/01/2022 MICROSCOPIC DESCRIPTION Slides are reviewed. GROSS DESCRIPTION Received in fixative is one container labeled with the patient's name and designated uterus, bilateral fallopian tubes and right ovary. The specimen consists of a hysterectomy specimen consisting of uterus, cervix, bilateral fallopian tubes and ovary. The uterus with cervix is received in multiple pieces and weighs in aggregate 3550 gm. The detached cervix measures 4.5 x 2.5 x 1.7 cm. The ectocervical mucosa could not be identified. The external os is circular in contour. The endocervical canal measures 1.5 cm in length and the endocervical mucosa is unremarkable. The uterus measures fundus to resection margin 17 cm, 20 cm transversely and 11 cm anterior-posteriorly. The serosal surface is unremarkable. The body of the uterus is distorted. A focal area of defect is noted at the site of detached nodular masses. The endometrial cavity is compressed to one side and measures 10 cm in length and up to 6 cm in width. The endometrium is sanz, focally ragged and measures 0.1 cm in thickness. The uterine wall measures up to 11 cm in thickness. A focal area of defect is noted consistent with site of sanz nodular masses. Also present in the container are two detached nodular masses measuring 14 and 18 cm in diameter. A small detached piece of uterus is also noted measuring 4.5 x 2.5 x 15 cm. Sections of these masses reveal sanz whorled cut surfaces without areas of hemorrhage, necrosis or cystic degeneration. Focal degenerative yellowish area is noted. The body of the uterus could not be oriented due to the deformed nature of the specimen. The detached fallopian tubes are not identified as right or left. The first fallopian tube measures 1 cm in length and 0.5 cm in diameter. The fimbrial end is identified. The second fallopian tube measures 1.5 cm in length and 0.5 cm in diameter. Sections reveal unremarkable cut surfaces. The fimbrial end is identified. The detached ovary identified as right measures 3.5 x 2 x 2 cm. Sections reveal unremarkable cut surfaces. Business Supervisor sections are submitted in 16 cassettes as follows: 1 - cervix, 2-6 - uterine wall (2-5 also includes endometrium), 7-9 ? largest nodular mass, 10 & 11 ? second largest nodular mass, 12 ? smallest nodular mass, 13 ? one fallopian tube, 14 ? second fallopian tube (fallopian tubes are submitted in entirety), 15 & 16 ? ovary. / SJ:rg 05/29/2022 TC:1 CPT: 82918 ADDENDUM ADDENDUM ADDENDUM ADDENDUM ADDENDUM ADDENDUM ADDENDUM ADDENDUM ADDENDUM ADDENDUM ADDENDUM ADDENDUM ADDENDUM ADDENDUM ADDENDUM ADDENDUM 03/28/2025 13:45 ADDENDUM 03/28/2025 13:45 ADDENDUM 03/28/2025 13:45 ADDENDUM 03/28/2025 13:45 ADDENDUM 03/28/2025 13:45 This addendum is added to incorporate an outside pathology consultation report. The case was examined at [facility] by Dr. Valentine (#[id number]) and the following diagnosis was rendered. Uterus with bilateral fallopian tubes and right ovary, hysterectomy with right salpino-oopherectomy and left salpingectomy: Cervix with Nabothian cysts. Inactive focally-attenuated endometrium with pseudodecidual change. Myometrium with leiomyomata. Uterine serosa with no pathological data. Fallopian tubes with benign paratubal cysts. Ovary with cortical inclusion cysts. Please see complete above mentioned consultation report in EMR
[2022-05-28 10:55] LABS: Bedside Glucose 204 mg/dL (74-106)
--- NOTE | 2022-05-28 13:00 | PCM.OPRPT ---
Problems Associated Problem List Diagnoses (1) Uterine fibroid: (2) Menorrhagia: (3) Anemia due to chronic blood loss: Report of Operation Date of Procedure: 05/28/22 Pre-Operative Diagnosis: menorrhagia, multiple uterine fibroids. 24 week size uterus Post-Operative Diagnosis: same Surgery/Procedure Performed:: Supracervical abdominal hysterectomy, RSO, left salpingectomy and cystoscopy Description of Surgical Findings:: enlarged uterus 3600+ gm, multiple fibroids, normal ovaries and tubes and appendix, normal bladder and vagina Surgeon: Kyleigh Saucedo transmission and protection engineer: Yoko Terrell Type of Anesthesia: General Anesthesiologist: Sunil Arenas Special Medications: lasix, methelyne imelda Specimen's removed: uterus, bilateral tubes, right ovary Drains: mccann Estimated Blood Loss (mL): 1000 Fluids Replaced: 3000 cc LR Description of Procedure: The patient was taken to the operating room where she was prepped and draped in dorsal supine position. Mccann catheter had been placed. A midline incision was made all the way up to her umbilicus and the uterus was up to almost her xiphoid process and we extended the incision around to the umbilicus approximately 2 cm above the umbilicus. It was carried through to underlying layer of the fascia the fascia was dissected off the rectus muscle enough to find the midline and the peritoneum was entered sharply. Once the incision was extended all the way superior and inferiorly the largest self-retaining retractor we had was placed into the peritoneal cavity and secured. Care was made to ensure that no other tissue was trapped underneath it. The bowel was packed away and we used to treat retractors. We were able to deliver the uterus partway through the retractor. Were able to dilate down to 5 the left round ligament. It was clamped, transected and suture-ligated. Everything was very large and distorted and the right ovary was actually pulled to the midline behind the uterus because the uterus was twisted. The vessels were very large and edematous. We did use the LigaSure to help seal any vessels for backbleeding. We then identified the left ovary and the infundibulopelvic ligament and clamped and sealed it with the LigaSure device and placed a suture ligature on the ovarian side of the pedicle. Same procedure was then performed on the contralateral side. There was some backbleeding continuously. There is also small amount of bleeding from any hurley we made in the uterus with instruments trying to gain again some traction so we could retract it. It took up all of the incision and we had to move the entire uterus side to side to be able to have the smallest amount of visualization. The bladder was then dissected down with blunt and sharp dissection. We could not see laterally well enough to skeletonize or identify the uterine artery safely. Decision was made then to debulk the uterus so we would be able to mobilize it and perform the surgery more safely. 2 large fibroids were removed from the midportion of the uterus. It took some time to remove these. There was some blood loss of backbleeding during this time. We then used clamps to clamp across the defect in the midportion of the uterus. We could then take the remaining portion of the utero-ovarian ligaments and any accessory vessels with the LigaSure device. Sutures were placed on the lateral pedicles for extra security because of the large size of the vessels. The uterine arteries were skeletonized they were clamped, sealed and transected with the LigaSure device but then we did again secure them with suture ligatures. There is still significant amount of backbleeding during this time. At this point we have reached the level of the cervix. Both cervix was felt to be very long. We amputated the uterus from the cervix to allow some better visualization. We then took several straight bites along the cervix and they were clamped with Jeff clamps, transected and suture ligatures were placed. Decision was made that the cervix was very long and it would be difficult to safely remove at all. We also had some significant sized blood vessels along the sides of the cervix. Decision was made to amputate another 2 cm in the cervix and leave approximately the last 3 cm of the cervix in situ. Her Pap smears and HPV have been normal. Some more of the cervix was amputated with the Bovie. The remaining cervix was oversewn anterior to posterior with interrupted 0 Vicryl [id number] sutures. The lateral pedicles were examined. There was some bleeding on the left side and a 2 [id number] sutures were needed there to obtain hemostasis. At this point the peritoneal cavity was irrigated and no active bleeding was noted from any of the pedicles in the lower pelvis. The round ligaments were hemostatic. The left tube was then identified and followed out to the fimbriated end. The LigaSure was used to clamp seal and transect the antimesenteric portion of the tube and it was sent off to pathology. The left ovary and pedicles were normal. The right ovary had a significant amount of bleeding from the IP ligament from traction and retraction and the decision was made to remove the ovary to decrease the risk of postop bleeding. ANy further suturing of the IP would have significanlty compromised the remaining blood supply of the ovary. The LigaSure device was used to clamp, seal and transect the IP ligament. An attempt was made to identify both ureters. They were difficult to visualize. Decision was made to perform a cystoscopy due to a couple of the lateral sutures that were placed on the left side the pelvis to obtain hemostasis. The pelvis was then irrigated and no active bleeding was noted. Some Toma was placed over the peritoneal surfaces. The fascia was then closed en bloc with the peritoneum with looped #1 PDS suture. Subcutaneous tissue was irrigated any bleeding was Bovie cauterized and some Toma was placed in this layer and it was closed with 2 layers and a few interrupted 2-0 and 3-0 Vicryl sutures. The skin was then closed with kenyon. Mccann catheter was removed. A cystoscopy was performed. The right ureter was seen peristalsing within 2 to 3 minutes. The left ureter did not. 10 mg of IV Lasix was given. After 10 more minutes there is still no definitive peristalsing from the from the left ureteral orifice. The patient was then given methylene blue IV. After approximately 5 more minutes we are able to identify a ureteral jet from the left ureter. The cystoscopy was completed a Mccann catheter was replaced. The patient was awakened and taken the recovery room in stable condition. All sponge lap and needle counts were correct. Dr. Murphy helped with tissue retraction, uterine manipulation, debulking of the uterus and suturing. Grafts/Implants Used: none Procedure Start Time: 10:09 Procedure Stop Time: 12:44 Complications none Admit VTE Documentation VTE Present on Admission: No VTE Mechan Device Prophylaxis: SCD's VTE Pharm Prophylaxis ordered?: Yes
[2022-05-28] MEDS: Lactated Ringers @ 70 MLS/HR 70 ML IV (13:44)
[2022-05-28 13:51] LABS: Bedside Glucose 130 mg/dL (74-106)
--- NOTE | 2022-05-28 15:33 | CASEMGMT ---
Paged as pt order is for surgical outpatient and patient precerted as inpatient. She states pt can be inpatient and she will correct when she comes to the hospital today.
[2022-05-28] MEDS: Ketorolac 30 MG/ML Syringe IV ×2 (15:46→21:59)
[2022-05-28] MEDS: 0.9% Saline Lock 10 ML Syringe IV ×2 (15:46→17:06)
[2022-05-28] MEDS: HYDROmorphone 1 MG/ML Syringe IV (17:06)
[2022-05-28 17:20] LABS: Bedside Glucose 107 mg/dL (74-106)
[2022-05-28] MEDS: Atorvastatin Calcium 40 MG Tablet PO (21:59)
[2022-05-28] MEDS: Docusate Sodium 100 MG Capsule PO (21:59)
[2022-05-28] MEDS: oxyCODONE 5 MG Tablet PO (23:11)
[2022-05-29 01:31] VITALS: BP 108/66; PULSE 65; RESP 14; TEMP 36.7; O2SAT 96
[2022-05-29 01:46] LABS: Bedside Glucose 87 mg/dL (74-106)
[2022-05-29 02:45] LABS: Bedside Glucose 86 mg/dL (74-106)
[2022-05-29 05:50] VITALS: BP 111/63; PULSE 69; RESP 12; TEMP 36.9; O2SAT 97
[2022-05-29 06:01] LABS: Hematocrit 35.3 % (37-47); Hemoglobin 10.9 g/dL (12.0-15.0); Mean Corp Hgb Conc 30.9 g/dL (32-36); Mean Platelet Vol. 10.1 fl (6.2-12.0); Platelet Count 176 K/mm3 (150-450); RBC Distribution Width CV 17.8 % (11.6-14.6); RBC Distribution Width SD 52.6 fl (35.1-43.9); Red Blood Count 4.36 M/mm3 (4.2-5.4); White Blood Count 7.1 K/mm3 (4.4-11.0)
[2022-05-29] MEDS: Acetaminophen 500 MG Tablet 1000 MG PO ×2 (06:06→11:57)
[2022-05-29] MEDS: Ketorolac 30 MG/ML Syringe IV ×2 (06:06→15:22)
[2022-05-29] MEDS: 0.9% Saline Lock 10 ML Syringe IV ×2 (06:08→15:22)
[2022-05-29 06:50] LABS: Bedside Glucose 94 mg/dL (74-106)
[2022-05-29] MEDS: Docusate Sodium 100 MG Capsule PO (09:40)
[2022-05-29 09:41] VITALS: BP 118/36; PULSE 67; RESP 18; TEMP 37.4; O2SAT 92
--- NOTE | 2022-05-29 09:52 | PCM.PN.BLA ---
Progress Note Pain controlled. no N/V. No lightheadedness, SOB Physical Exam Narrative abd soft, moderately and softly distended. Incision w/ small amount SS drainage, bandaged changed Assessment & Plan Assessment/Plan (1) Uterine fibroid: PLAN: Plan POD#1 doing well ready for d/c d/w her expectations and prescriptions
--- NOTE | 2022-05-29 09:55 | PCM.DC ---
Discharge Instructions Diet Discharge Diet: No restrictions Activity Discharge Activity: May Shower May resume sexual activity in: 6-8 weeks Dressing / Incision Call your doctor if your incision/area has: Continuous Slow Oozing, Increased Pain/ Swelling and Foul Smelling Discharge Call your doctor if you observe: Fever of 101 or Higher Cleanse incision/area with: Soap & Water Additional Dressing/Incision Instructions:: take bandage off in 4-5 days Follow Up Care Please Follow Up With: Kyleigh Saucedo MD When: 1-2 weeks Test Results: Test results from this visit will be discussed in further detail at your follow-up appointment, if applicable. Discharge Plan Admission Admit Date/Time: 05/28/22 07:48 Primary Reason for Your Visit: hysterectomy Attending Provider: Kyleigh Saucedo Primary Care Provider: Care Physician,Ivelisse Primary Discharge Orders/Prescriptions Prescriptions: New oxycodone 5 mg tablet 5 mg PO Q6H PRN PRN (Reason: severe pain) 5 Days Qty: 20 0RF Continued aspirin 81 MG tablet,chewable 81 mg PO DAILY@0800 atorvastatin 40 mg tablet 40 mg PO QHS clopidogrel [Plavix] 75 mg tablet 75 mg PO DAILY losartan 25 mg tablet 25 mg PO DAILY metoprolol tartrate 25 mg tablet 25 mg PO BID Discontinued norethindrone acetate 5 mg tablet 1 mg PO BID Label Comments: TAKE 1 TABLET BY MOUTH THREE TIMES DAILY Other Ambulatory Orders: 12 Lead EKG (Routine) Location: None Selected Ordered By: Dr. Chema Flower Referrals / Follow Up: Care Physician,No Primary [Primary Care Provider] - Disposition Disposition (needs filled in before D/C Order can be placed): Home, Self Care
--- NOTE | 2022-05-29 10:05 | NURSING ---
Dr. Saucedo in room with pt. Verbally informed this RN it was okay to take mccann out. Mccann was removed. This RN informed pt that there was a measuring hat in the toilet and we needed her urine measured. New vinh pad applied after vinh care given.
--- NOTE | 2022-05-29 10:06 | CASEMGMT ---
RAMONE STEWART Assessment: Face to Face with pt for initial transition planning/care coordination assessment. RN PAT introduced self and role at [facility], pt voices understanding and consents to assessment. Pt is A/O x4 and answers all questions appropriately at this time. Pt lying in bed in no distress. Physician just left room. Care providers, pharmacy, and demographics verified/updated. Admitting Dx: total abd hyster, bso? PCP: Provided pt with local healthcare directory as she has no PCP. She states her goes to and she would like to see if he would accept her. Specialists: Lewis, MANAGER BRIDGE; Marilu, cardio Preferred Pharmacy: [facility] Retail Insurance: [place] Prescription Benefit: yes LW/HPOA: Pt denies having a LW/DPOA and denies need for info regarding AD. LNOK: Pancho Ortiz, ; Teja Venegas, dtr Living Arrangements: Pt lives with , son and his girlfriend and 2 children as well as another grandchild in a 3 story house with 2 steps to enter with a rail. Pt states she is I in ADL's and denies concerns at home. Transportation: Pt drives self and denies concerns with transportation. DME/HHC/SNF: Pt denies having any DME in the home, previous HHC or SNF stays. Pt states no concerns with going home at time of dc. Pt states no further concerns/needs. CM to follow. Advised pt to ask CM if any further question/concerns/needs arise, voices understanding. Pt Goal: Home Plan: Home
[2022-05-29 10:10] VITALS: O2SAT 92
--- NOTE | 2022-05-29 11:09 | PHA.DC.MC ---
Pharmacy Service has performed discharge medication reconciliation and counseling for this patient. 1. OXYCODONE 5MG PO Q6H PRN SEVERE PAIN The patient's discharge medication list was reviewed for discrepancies and discrepancies were resolved. Home Medications aspirin 81 mg chewable tablet 81 mg PO DAILY@0800 hx of mi 06/09/19 atorvastatin 40 mg tablet 40 mg PO QHS cholesterol 05/28/22 clopidogrel 75 mg tablet (Plavix) 75 mg PO DAILY hx of mi 05/28/22 losartan 25 mg tablet 25 mg PO DAILY bp 05/28/22 metoprolol tartrate 25 mg tablet 25 mg PO BID bp 05/28/22 oxycodone 5 mg tablet 5 mg PO Q6H PRN PRN severe pain 5 days #20 TABLETS 05/29/22 The patient was counseled on the following discharge medications and changes in medications for homegoing were reviewed. The Reason for Use, instructions for use, and potential side effects were reviewed for all new medications. The patient's questions regarding all of their medications were answered. The patient was able to verbally demonstrate an understanding of their discharge medications.
[2022-05-29] MEDS: Losartan Potassium 25 MG Tablet PO (12:00)
[2022-05-29 12:01] VITALS: BP 110/74; PULSE 66; RESP 18; O2SAT 95
[2022-05-29 12:40] LABS: Bedside Glucose 167 mg/dL (74-106)
[2022-05-29 15:33] VITALS: BP 119/60; PULSE 64; RESP 17; TEMP 36.7; O2SAT 95
== END 2022-05-29 15:58 | disposition home or self-care (01) | DRG 743 ==
LOC: ACINP 07:49 → MS3 05-29 09:01
PROVIDERS: Anesthesiology; Admitting Provider Obstetrics & Gynecology; Referring Provider Obstetrics & Gynecology; Visit Provider Obstetrics & Gynecology
PROC: 0UT90ZZ Resection of Uterus, Open Approach (ICD-10-PCS; CPT 58150; principal; 2022-05-28 09:45)
DX: N92.0 Excessive and frequent menstruation with regular cycle (principal); D25.9 Leiomyoma of uterus, unspecified; D50.0 Iron deficiency anemia secondary to blood loss (chronic); E78.00 Pure hypercholesterolemia, unspecified; F17.200 Nicotine dependence, unspecified, uncomplicated; I10 Essential (primary) hypertension; I25.10 Atherosclerotic heart disease of native coronary artery without angina pectoris; N88.8 Other specified noninflammatory disorders of cervix uteri; N83.8 Other noninflammatory disorders of ovary, fallopian tube and broad ligament; N80.0 Endometriosis of uterus; Z95.5 Presence of coronary angioplasty implant and graft; Z79.02 Long term (current) use of antithrombotics/antiplatelets; Z79.82 Long term (current) use of aspirin; Z79.899 Other long term (current) drug therapy
CPT/HCPCS: 36415; 80048; 82962; 83735; 85027; 85610; 85730; 86850; 86900; 86901; 88307; 93005; 94640; 94762; J7120; A4216; J2405; J3475; Q9968

== ENCOUNTER → 2022-11-30 | Outpatient (CLI) | payer BC, SELFPAY ==
[2022-11-30 15:11] LABS: Hematocrit 44.7 % (37-47); Mean Corp Hgb Conc 33.6 g/dL (32-36); Mean Corpuscular Hgb 30.7 pg (27.0-32.0); Mean Corpuscular Volume 91.6 fL (81-99); Mean Platelet Vol. 9.6 fl (6.2-12.0); Platelet Count 215 K/mm3 (150-450); RBC Distribution Width CV 13.5 % (11.6-14.6); RBC Distribution Width SD 45.7 fl (35.1-43.9); Red Blood Count 4.88 M/mm3 (4.2-5.4); White Blood Count 6.3 K/mm3 (4.4-11.0)
[2022-11-30 15:47] LABS: Anion Gap 6 (5-15); BUN 10 mg/dL (7-18); BUN/Creat Ratio 13.7 RATIO (10-20); Calcium,Total 8.9 mg/dL (8.5-10.1); Chloride 105 mmol/L (98-107); Creatinine, Serum 0.73 mg/dL (0.55-1.02); EST Glomerular Filtration Rate 89 mL/min (>60); Est Glom Filt Rate - Afr Amer 107 mL/min (>60); Glucose 171 mg/dL (74-106); Magnesium 2.1 mg/dL (1.6-2.6); Potassium 3.8 mmol/L (3.5-5.1); Sodium Level 140 mmol/L (136-145); Thyroid Stim Hormone (TSH) 2.02 uIU/mL (0.358-3.74)
== END | disposition home or self-care (01) ==
LOC: LAB 14:53
PROVIDERS: PCP Family Medicine; Referring Provider Physician Assistant Medical; Visit Provider Physician Assistant Medical
DX: R42 Dizziness and giddiness (principal); I10 Essential (primary) hypertension; I25.10 Atherosclerotic heart disease of native coronary artery without angina pectoris; Z86.2 Personal history of diseases of the blood and blood-forming organs and certain disorders involving the immune mechanism
CPT/HCPCS: 36415; 80048; 83735; 84443; 85027

== ENCOUNTER → 2022-12-08 | Outpatient (CLI) | payer BC, SELFPAY ==
[2022-12-08 17:04] LABS: AST(SGOT) 23 U/L (15-37); Alanine Aminotransfer ALT/SGPT 46 U/L (13-56); Albumin, Serum 3.6 g/dL (3.2-5.0); Alkaline Phosphatase 114 U/L (45-117); Bilirubin, Direct 0.11 mg/dL (0.00-0.30); Cholesterol 161 mg/dL (200); Globulin 4.1 g/dL (2.2-4.2); High Density Lipoprotein 37 mg/dL; Protein, Total 7.7 g/dL (6.4-8.2); Triglycerides 182 mg/dL; Very Low Density Lipoprotein 36 mg/dL (5-40)
== END | disposition home or self-care (01) ==
LOC: LAB 15:54
PROVIDERS: PCP Family Medicine; Visit Provider Internal Medicine Cardiovascular Disease
DX: E78.00 Pure hypercholesterolemia, unspecified (principal)
CPT/HCPCS: 36415; 80061; 80076

== ENCOUNTER 2025-01-08 17:56 | Emergency (ER) | payer BC, SELFPAY ==
[2025-01-08 17:57] VITALS: BP 141/72; PULSE 90; RESP 16; TEMP 36.6; O2SAT 95; BMI 36.7
[2025-01-08 18:20] LABS: Absolute Neutrophil Count 6.6 X10^3/uL (2.0-7.7); Basophil# 0.06 X10^3/uL; Basophil% 0.6 % (0-1); Eosinophil# 0.17 X10^3/uL; Eosinophils% 1.8 % (0-5); Hematocrit 43.8 % (37-47); Hemoglobin 14.7 g/dL (12.0-15.0); Lymphocyte % 20.3 % (19-41); Mean Corp Hgb Conc 33.6 g/dL (32-36); Mean Corpuscular Hgb 29.8 pg (27.0-32.0); Mean Corpuscular Volume 88.7 fL (81-99); Mean Platelet Vol. 9.7 fl (6.2-12.0); Monocyte# 0.59 X10^3/uL; Monocyte% 6.3 % (0-10); NRBC Flagged by Analyzer 0 % (0-5); Neutrophil # 6.63 X10^3/uL (2.7-7.7); Neutrophil % 70.7 % (47-70); Platelet Count 237 K/mm3 (150-450); RBC Distribution Width CV 13.2 % (11.6-14.6); RBC Distribution Width SD 42.5 fl (35.1-43.9); Red Blood Count 4.94 M/mm3 (4.2-5.4); White Blood Count 9.4 K/mm3 (4.4-11.0)
[2025-01-08 18:42] LABS: ALB/GLOB Ratio 0.6 RATIO (0.9-2.4); AST(SGOT) 16 U/L (15-37); Alanine Aminotransfer ALT/SGPT 23 U/L (13-56); Alkaline Phosphatase 98 U/L (45-117); Anion Gap 7 (5-15); BUN 14 mg/dL (7-18); BUN/Creat Ratio 19.1 RATIO (10-20); Calcium,Total 9.5 mg/dL (8.5-10.1); Chloride 100 mmol/L (98-107); Creatinine, Serum 0.73 mg/dL (0.55-1.02); EST Glomerular Filtration Rate 88 mL/min (>60); Est Glom Filt Rate - Afr Amer 106 mL/min (>60); Estimated Creatinine Clearance 110.63 ml/min; Globulin 5.4 g/dL (2.2-4.2); Glucose 119 mg/dL (74-106); Lipase 18 U/L (73-393); Potassium 4.4 mmol/L (3.5-5.1); Protein, Total 8.4 g/dL (6.4-8.2); Sodium Level 136 mmol/L (136-145)
[2025-01-08 19:00] VITALS: BP 137/77; PULSE 76; RESP 16; TEMP 37.1; O2SAT 99
[2025-01-08 20:00] VITALS: BP 131/70; PULSE 82; RESP 16; TEMP 36.6; O2SAT 99
[2025-01-08 20:01] LABS: Color, Urine Amber (Yellow); Glucose, Dipstick Normal (Normal); Ketone-Dipstick Negative (Negative); Leukocyte Esterase-Dipstick 100 /ul (Negative); Nitrite-Dipstick Negative (Negative); Occult Blood-Urine 50 /ul (Negative); Protein-Dipstick 30 mg/dl (Negative); Specific Gravity, Urine 1.015 (1.002-1.030); Urine Bilirubin Dipstick Negative (Negative); Urine Clarity Sl. Cloudy (Clear); Urine Urobilinogen 4 mg/dl (Normal)
[2025-01-08 20:19] LABS: Bacteria 2+ /hpf (None Seen); Mucous, Urine 1+ /hpf (<or=2+); Red Blood Cells-Urine 0-5 SEEN /hpf (0-5); Squamous Epithelial Cells - UA 0-5 SEEN /hpf (5-10); White Blood Cells 5-10 SEEN /hpf (0-5)
[2025-01-08] MEDS: 0.9% Normal Saline (1000mL) 1,000 ML 999 ML IV (20:26)
[2025-01-08] MEDS: Ondansetron 4 MG/2 ML Vial IV (20:26)
[2025-01-08] MEDS: Ketorolac 15 MG/ML Vial IV (20:26)
--- NOTE | 2025-01-08 20:29 | EDS_ITS ---
HPI <LONG Sanders - Last Filed: 01/08/25 21:50> History of Present Illness Chief Complaint: Complaint Narrative Narrative: Patient is a 54-year-old female with history of kidney stones, hypertension, hyperlipidemia, cardiac stenting who presents to the emergency department for 2 weeks of intermittent abdominal pain, worsening dysuria. Patient states he did get seen by an urgent care, placed on Keflex. She did feel better. Patient states now she has urgency, worsening symptoms, belly pain and is here for evaluation. PFSH <LONG Sanders - Last Filed: 01/08/25 21:50> [facility] Medical History Anemia due to chronic blood loss Atherosclerosis of coronary artery without angina pectoris Cardiac murmur Cardiology follow-up encounter Essential (primary) hypertension Gastric reflux High cholesterol History of blood transfusion History of echocardiogram History of non-ST elevation myocardial infarction (NSTEMI) (06/2014) Kidney stones Loss of consciousness Menorrhagia Nicotine dependence Postoperative pain Shortness of breath on exertion Smoker Uterine fibroid Wears dentures Home Medications ?Medication ?Instructions ?Recorded ?Last Taken ?Type aspirin 81 mg chewable tablet 81 mg PO DAILY@0800 hx o f mi 06/09/19 05/23/22 History metoprolol tartrate 25 mg tablet 25 mg PO BID bp #180 tabs 02/24/23 Unknown Rx clopidogrel 75 mg tablet (Plavix) 75 mg PO DAILY hx of mi #90 tabs 06/15/23 Unknown Rx losartan 25 mg tablet 25 mg PO DAILY bp #90 tabs 0 06/15/23 Unknown Rx atorvastatin 80 mg tablet 80 mg PO QHS cholesterol #90 tabs 11/29/23 Unknown Rx famotidine 20 mg tablet (Pepcid) 20 mg PO BID 11/29/23 Unknown History sertraline 50 mg tablet (Zoloft) 50 mg PO DAILY Unknown History ondansetron 4 mg disintegrating 4 mg PO Q8H PRN PRN Na usea #10 tabs 01/08/25 Unknown Rx tablet oxycodone-acetaminophen 5 mg-325 1 tab PO Q8H PRN pain 3 days #10 01/08/25 Unknown Rx mg tablet (Percocet) tabs sulfamethoxazole 800 1 tab PO BID 10 days #20 tab s 01/08/25 Unknown Rx mg-trimethoprim 160 mg tablet (Bactrim DS) Allergy/AdvReac Type Severity Reaction Status Date / Time No Known Allergies Allergy Verified 01/08/25 17:57 Surgical History Cataract extraction status of right eye History of cholecystectomy History of coronary artery stent placement (03/31/21) History of hysterectomy Hx of tubal ligation Social History (Updated 01/08/25 @ 19:27 by Promise Baker) household members: spouse housing: house Smoking Status: Current every day smoker tobacco type: cigarettes alcohol intake: current alcohol intake frequency: holidays/special occasions only substance use type: does not use caffeine: Yes Type: coffee Number of servings: 1 and tea Number of servings: 2 ROS <LONG Sanders - Last Filed: 01/08/25 21:50> ROS ED ROS Narrative Constitutional: Negative for fever, chills, weight loss, weakness Eyes: Negative for vision loss, vision change, double vision ENT: Negative for any sore throat, ear pain, congestion Cardiovascular: Negative for any chest pain, tightness, palpitations Respiratory: Negative for any cough, sputum production, hemoptysis, dyspnea, dyspnea on exertion, orthopnea Gastrointestinal: Negative for any vomiting, diarrhea, constipation, blood in stool, blood in vomit : Positive for any urinary frequency, dysuria, retention, blood in urine Muscle skeletal: Negative for any neck pain, back pain Neurological: Negative for any headache, syncope, dizziness Skin: Negative for any rashes, itching, abrasions, lacerations Psychiatric: Negative for any depression, anxiety, stress, suicidal ideation, homicidal ideation Hematologic: Negative for any excessive bruising, easy bleeding EXAM <LONG Sanders - Last Filed: 01/08/25 21:50> Physical Exam Narrative Exam Narrative: Vital signs reviewed. HEET: Head normocephalic atraumatic, TMs clear bilaterally. Posterior pharynx is clear, moist mucous membranes. Nares clear bilaterally. Neck: Supple with no lymphadenopathy or tenderness. No signs of meningismus. Cardiac: Regular rate and rhythm no murmurs gallops or rubs, equal peripheral pulses bilaterally. Respiratory: Lungs clear to auscultation bilaterally. No chest tenderness. Abdomen: Soft, nondistended. No abdominal bruit or pulsatile masses. No hepatosplenomegaly. Patient does have some tenderness worse to the left mid to lower abdomen. Extremities: No peripheral edema, no signs of gross trauma or deformity. Active full range of motion of all extremities. Neuro: Cranial nerves II through XII intact, no focal neurological deficits. Skin: Clean dry and intact with no rash, purpura, petechiae, vesicles or pustules. Backs/flank: No CVA tenderness, no midline spinal tenderness, no deformity. Psych: Normal mood and affect. No SI, HI or acute psychosis. Const Vital Signs: 01/08/25 17:57 01/08/25 19:00 01/08/25 20:00 Temperature 98 F 98.7 F 98 F Temperature Source Oral Oral Oral Pulse Rate 90 76 82 Respiratory Rate 16 16 16 Blood Pressure 141/72 H 137/77 H 131/70 H Blood Pressure Mean 95 97 90 Pulse Ox 95 99 99 Oxygen Delivery Method Room Air Room Air Room Air 01/08/25 21:00 01/08/25 21:55 Temperature 98.3 F 98.3 F Temperature Source Oral Pulse Rate 78 78 Respiratory Rate 16 16 Blood Pressure 128/89 H 128/89 H Blood Pressure Mean 102 102 Pulse Ox 98 98 Oxygen Delivery Method Room Air Positive well nourished and well developed General Appearance ED: well developed <Dr. Isaiah Villanueva DO - Last Filed: 01/08/25 22:45> Physical Exam Const Vital Signs: 01/08/25 17:57 01/08/25 19:00 01/08/25 20:00 Temperature 98 F 98.7 F 98 F Temperature Source Oral Oral Oral Pulse Rate 90 76 82 Respiratory Rate 16 16 16 Blood Pressure 141/72 H 137/77 H 131/70 H Blood Pressure Mean 95 97 90 Pulse Ox 95 99 99 Oxygen Delivery Method Room Air Room Air Room Air 01/08/25 21:00 01/08/25 21:55 Temperature 98.3 F 98.3 F Temperature Source Oral Pulse Rate 78 78 Respiratory Rate 16 16 Blood Pressure 128/89 H 128/89 H Blood Pressure Mean 102 102 Pulse Ox 98 98 Oxygen Delivery Method Room Air MDM <LONG Sanders - Last Filed: 01/08/25 21:50> MDM Lab Data Labs: Laboratory Results - last 24 hr 01/08/25 01/08/25 18:10 19:30 WBC 9.4 RBC 4.94 Hgb 14.7 Hct 43.8 MCV 88.7 MCH 29.8 MCHC 33.6 RDW Std Deviation 42.5 RDW Coeff of Estella 13.2 Plt Count 237 MPV 9.7 Immature Gran % (Auto) 0.300 Neut % (Auto) 70.7 H Lymph % (Auto) 20.3 [place] % (Auto) 6.3 Eos % (Auto) 1.8 Baso % (Auto) 0.6 Absolute Neuts (auto) 6.6 Absolute Lymphs (auto) 1.90 Nucleated RBC % 0 Sodium 136 Potassium 4.4 Chloride 100 Carbon Dioxide 29.0 Anion Gap 7 BUN 14 Creatinine 0.73 Estim Creat Clear Calc 110.63 Est GFR (MDRD) Af Amer 106 Est GFR (MDRD) Non-Af 88 BUN/Creatinine Ratio 19.1 Glucose 119 H Calcium 9.5 Total Bilirubin 1.20 H AST 16 ALT 23 Alkaline Phosphatase 98 Total Protein 8.4 H Albumin 3.0 L Globulin 5.4 H Albumin/Globulin Ratio 0.6 L Lipase 18 L Urine Color Mirna Urine Clarity Sl. Cloudy Urine pH 6.0 Ur Specific [place] 1.015 Urine Protein 30 H Urine Glucose (UA) Normal Urine Ketones Negative Urine Occult Blood 50 H Urine Nitrite Negative Urine Bilirubin Negative Urine Urobilinogen 4 H Ur Leukocyte Esterase 100 H Urine RBC 0-5 SEEN Urine WBC 5-10 SEEN Ur Squamous Epith Cells 0-5 SEEN Urine Bacteria 2+ Urine Mucus 1+ Radiography Diagnostic Testing: Clinical Impression(s) from Imaging Studies Abdomen/Pelvis CT 01/08/25 20:35 IMPRESSION: 1. Heterogeneous left pelvic mass concerning for neoplasm 2. Left pyelonephritis with nonobstructive stone. Nonobstructive calculi also noted in the right kidney. 3. Hepatic steatosis and hepatomegaly One or more dose reduction techniques were used (e.g., Automated exposure control, adjustment of the mA and/or kV according to patient size, use of iterative reconstruction technique). [facility] Treatment and Re-Evaluation :: Differential diagnosis includes however is not limited to: Obstructing uropathy, infected kidney stone, UTI, pyelonephritis, bowel perforation Patient appears generally well, vital signs are stable, patient is nontoxic- appearing. Presenting to the emergency department with abdominal pain, dysuria, frequency, urgency.Patient's laboratory values showed normal CBC, patient's chemistries were unremarkable, total bilirubin 1.2, lipase was negative. Patient's urinalysis was positive for infection with 2+ bacteria 5-10 white blood cells, 100 leukocyte Estrace. This was sent for culture, IV Rocephin given. CT scan of the abdomen pelvis IV contrast will be obtained. IV fluids, Zofran as well as Toradol be given. On reevaluation, the patient was feeling slightly improved. Patient's CT scan showed heterogeneous left pelvic mass concerning for neoplasm. Left pyelonephritis with nonobstructive stone. Nonobstructing calculi also noted in the right kidney. Hepatic steatosis and hepatomegaly. Second of this finding, patient's urine was sent for culture. Patient will be given a fast pass for the pelvic mass. She was shown by the ER attending via the CAT scan. At this time, patient will be given a fast pass for the cancer follow-up, patient will be placed on Bactrim twice a day for 10 days, as well as nausea medicine and pain medicine. All questions were answered, patient was given strict return precaution to return for worsening abdominal pain, fever chills nausea or vomiting. Patient stable for discharge. <Dr. Isaiah Villanueva, DO - Last Filed: 01/08/25 22:45> [facility] Lab Data Labs: Laboratory Results - last 24 hr 01/08/25 01/08/25 18:10 19:30 WBC 9.4 RBC 4.94 Hgb 14.7 Hct 43.8 MCV 88.7 MCH 29.8 MCHC 33.6 RDW Std Deviation 42.5 RDW Coeff of Estella 13.2 Plt Count 237 MPV 9.7 Immature Gran % (Auto) 0.300 Neut % (Auto) 70.7 H Lymph % (Auto) 20.3 [place] % (Auto) 6.3 Eos % (Auto) 1.8 Baso % (Auto) 0.6 Absolute Neuts (auto) 6.6 Absolute Lymphs (auto) 1.90 Nucleated RBC % 0 Sodium 136 Potassium 4.4 Chloride 100 Carbon Dioxide 29.0 Anion Gap 7 BUN 14 Creatinine 0.73 Estim Creat Clear Calc 110.63 Est GFR (MDRD) Af Amer 106 Est GFR (MDRD) Non-Af 88 BUN/Creatinine Ratio 19.1 Glucose 119 H Calcium 9.5 Total Bilirubin 1.20 H AST 16 ALT 23 Alkaline Phosphatase 98 Total Protein 8.4 H Albumin 3.0 L Globulin 5.4 H Albumin/Globulin Ratio 0.6 L Lipase 18 L Urine Color Mirna Urine Clarity Sl. Cloudy Urine pH 6.0 Ur Specific [place] 1.015 Urine Protein 30 H Urine Glucose (UA) Normal Urine Ketones Negative Urine Occult Blood 50 H Urine Nitrite Negative Urine Bilirubin Negative Urine Urobilinogen 4 H Ur Leukocyte Esterase 100 H Urine RBC 0-5 SEEN Urine WBC 5-10 SEEN Ur Squamous Epith Cells 0-5 SEEN Urine Bacteria 2+ Urine Mucus 1+ Radiography Diagnostic Testing: Clinical Impression(s) from Imaging Studies Abdomen/Pelvis CT 01/08/25 20:35 IMPRESSION: 1. Heterogeneous left pelvic mass concerning for neoplasm 2. Left pyelonephritis with nonobstructive stone. Nonobstructive calculi also noted in the right kidney. 3. Hepatic steatosis and hepatomegaly One or more dose reduction techniques were used (e.g., Automated exposure control, adjustment of the mA and/or kV according to patient size, use of iterative reconstruction technique). Reading Location: [facility] Treatment and Re-Evaluation :: Differential diagnosis includes however is not limited to: Obstructing uropathy, infected kidney stone, UTI, pyelonephritis, bowel perforation Patient appears generally well, vital signs are stable, patient is nontoxic- appearing. Presenting to the emergency department with abdominal pain, dysuria, frequency, urgency.Patient's laboratory values showed normal CBC, patient's chemistries were unremarkable, total bilirubin 1.2, lipase was negative. Patient's urinalysis was positive for infection with 2+ bacteria 5-10 white blo od cells, 100 leukocyte Estrace. This was sent for culture, IV Rocephin given. CT scan of the abdomen pelvis IV contrast will be obtained. IV fluids, Zofran as well as Toradol be given. On reevaluation, the patient was feeling slightly improved. Patient's CT scan showed heterogeneous left pelvic mass concerning for neoplasm. Left pyelonephritis with nonobstructive stone. Nonobstructing calculi also noted in the right kidney. Hepatic steatosis and hepatomegaly. Second of this finding, patient's urine was sent for culture. Patient will be given a fast pass for the pelvic mass. She was shown by the ER attending via the CAT scan. At this time, patient will be given a fast pass for the cancer follow-up, patient will be placed on Bactrim twice a day for 10 days, as well as nausea medicine and pain medicine. All questions were answered, patient was given strict return precaution to return for worsening abdominal pain, fever chills nausea or vomiting. Patient stable for discharge. ED attending note: I evaluated the patient in conjunction with the [facility]. I agree with his/her statements and above findings. I have personally performed a face to face assessment of the patient and have reviewed the [facility] Note. I performed a substantive portion of the visit including all aspects of the following. I personally saw the patient performed chart review, physical exam, reviewed labs, imaging (if obtained), and formulated a treatment and management plan. This note was generated with [employer] dictation software. It may contain incorrect words, spelling, and punctuation that were not noted in review of the chart prior to signing. Discharge Plan Triage Chief Complaint: Complaint ED Midlevel Provider: Nabil Santos ED Provider: Isaiah Villanueva Dx/Rx/DC Orders Clinical Impression: Pelvic mass, Pyelonephritis, Hematuria Instructions: What is Hematuria?, ED Pyelonephritis, Female (Adult) Prescriptions: New oxycodone-acetaminophen [Percocet] 5-325 mg tablet 1 tab PO Q8H PRN (Reason: pain) 3 Days Qty: 10 0RF ondansetron 4 mg tablet,disintegrating 4 mg PO Q8H PRN PRN (Reason: Nausea) Qty: 10 0RF sulfamethoxazole-trimethoprim [Bactrim DS] 800-160 mg tablet 1 tab PO BID 10 Days Qty: 20 0RF No Action sertraline [Zoloft] 50 mg tablet 50 mg PO DAILY famotidine [Pepcid] 20 mg tablet 20 mg PO BID atorvastatin 80 mg tablet 80 mg PO QHS Qty: 90 3RF aspirin 81 MG tablet,chewable 81 mg PO DAILY@0800 metoprolol tartrate 25 mg tablet 25 mg PO BID Qty: 180 3RF clopidogrel [Plavix] 75 mg tablet 75 mg PO DAILY Qty: 90 3RF losartan 25 mg tablet 25 mg PO DAILY Qty: 90 3RF Other Ambulatory Orders: Fast Pass: Oncology Referral [facility] (Routine) Facility: [facility] - Location: [facility] Ordered By: Dr. Isaiah Villanueva Primary Care Provider: David Tse Referrals: David Tse MD [Primary Care Provider] - Activity Restrictions/Additional Instructions: Please follow-up with a fast pass. The Bactrim is for UTI/kidney infection twice a day for 10 days. You also have nausea medicine as well as pain medicine. Print Language: [place] Disposition Disposition: Home, Self Care Discharge Date/Time: 01/08/25 21:57
[2025-01-08] MEDS: Ceftriaxone 1 GM/50 ML BAG IV (20:35)
--- NOTE | 2025-01-08 20:35 | CT_ITS ---
PROCEDURE: ABDOMEN/PELVIS W IV CONT ONLY REASON FOR EXAM: Abdominal pain TECHNIQUE: Abdomen and pelvis CT with intravenous contrast. COMPARISON: None. FINDINGS: Lung bases: Clear Liver: Diffuse fatty infiltration. Enlarged Gallbladder: Surgically absent. Spleen: Normal size. Pancreas: Unremarkable. Adrenals: Unremarkable. Kidneys: Left peripelvic fat stranding with 14 mm nonobstructive calculus. Nonobstructive calculi are also noted in the left kidney.. Bladder: Unremarkable. Reproductive Organs: Prior hysterectomy. Adnexal regions are unremarkable. Bowel: No bowel obstruction. Appendix: Normal. Lymph nodes: There is a heterogeneously enhancing mass in the left pelvis measuring 7.3 x 8.1 cm. No other corresponding lymphadenopathy is noted. Vasculature: Mild diffuse atherosclerotic calcifications are noted. Peritoneum / Retroperitoneum: No ascites. No free air. Bones: Unremarkable. CT/Abdomen/Pelvis W IV Cont ONLY IMPRESSION: 1. Heterogeneous left pelvic mass concerning for neoplasm 2. Left pyelonephritis with nonobstructive stone. Nonobstructive calculi also noted in the right kidney. 3. Hepatic steatosis and hepatomegaly One or more dose reduction techniques were used (e.g., Automated exposure contr ol, adjustment of the mA and/or kV according to patient size, use of iterative reconstruction technique). Reading Location: [facility]
[2025-01-08 21:00] VITALS: BP 128/89; PULSE 78; RESP 16; TEMP 36.8; O2SAT 98
[2025-01-08 21:55] VITALS: BP 128/89; PULSE 78; RESP 16; TEMP 36.8; O2SAT 98
== END 2025-01-08 21:57 | disposition home or self-care (01) ==
PROVIDERS: Emergency Provider Emergency Medicine; PCP Family Medicine; Visit Provider Emergency Medicine
DX: N12 Tubulo-interstitial nephritis, not specified as acute or chronic (principal); I10 Essential (primary) hypertension; Z95.5 Presence of coronary angioplasty implant and graft; R31.9 Hematuria, unspecified; F17.210 Nicotine dependence, cigarettes, uncomplicated; R19.00 Intra-abdominal and pelvic swelling, mass and lump, unspecified site; I25.10 Atherosclerotic heart disease of native coronary artery without angina pectoris; E78.00 Pure hypercholesterolemia, unspecified; N20.2 Calculus of kidney with calculus of ureter
CPT/HCPCS: 74177; 80053; 81001; 83690; 85025; 87086; 87088; 96365; 96375; 99283; Q9967; A4216; J2405

== ENCOUNTER → 2025-01-12 | Outpatient (CLI) | payer BC, SELFPAY ==
--- NOTE | 2025-01-12 12:55 | US_ITS ---
PROCEDURE: TRANSVAGINAL NON- REASON FOR EXAM: Pelvic mass on CT scan. TECHNIQUE: Transvaginal pelvic ultrasound COMPARISON: Comparison is made with prior CT scan dated January 08, 2025. FINDINGS: Measurements: Status post hysterectomy. Status post right oophorectomy. Left Ovary: 10.5 cm x 7.8 cm x 7.4 cm with a volume of 318 mL. Left ovary: Diffuse enlargement of the left ovary. It is heterogeneous with increased blood flow. A neoplastic process should be ruled out. No large pelvic mass identified. US/Transvaginal Non- IMPRESSION: Status post hysterectomy and right oophorectomy. Heterogeneous enlargement of the left ovary with blood flow. This corresponds with the CT findings. A neoplastic process should be ruled out. Reading Location: [id number]
== END | disposition home or self-care (01) ==
LOC: US 12:55
PROVIDERS: PCP Family Medicine; Referring Provider Internal Medicine Hematology & Oncology; Visit Provider Internal Medicine Hematology & Oncology
DX: R19.00 Intra-abdominal and pelvic swelling, mass and lump, unspecified site (principal)
CPT/HCPCS: 76830

== ENCOUNTER → 2025-03-26 | Outpatient (CLI) | payer BC, SELFPAY ==
--- NOTE | 2025-03-26 15:28 | CT_ITS ---
PROCEDURE: CT CHEST, ABD, PEL W/CONTRAST 03/26/2025 REASON FOR EXAM: STAGING; IV AND ORAL CONTRAST TECHNIQUE: Chest, abdomen and pelvis CT with intravenous contrast. Coronal and Sagittal reconstruction series were provided. One or more dose reduction techniques were used (e.g., Automated exposure control, adjustment of the mA and/or kV according to patient size, use of iterative reconstruction technique. PATIENT PREPARATION: Per protocol ORAL CONTRAST TYPE: None. AMOUNT: mL CONTRAST: Omnipaque 350 VOLUME: 100mL no provided gauge IV COMPARISON: CT abdomen and pelvis 01/08/2025 FINDINGS: CT CHEST: Hardware: None Lymph nodes: No suspicious adenopathy. Heart and Vasculature: Normal cardiac size. Moderate coronary artery calcifications. Pulmonary arteries and thoracic aorta are unremarkable. Lungs and Airways: Central airways are patent without endobronchial lesions. Patchy opacities in the lingula and left lower lobe, compatible with atelectasis. 4 mm indeterminate left lower lobe nodule (series 6, image 73). Additional 4 mm right middle lobe nodule (series 6, image 65). Otherwise, no focal consolidation. No pneumothorax. No pleural effusion. Bones: No suspicious osseous lesions. Chest wall is unremarkable. 4 mm right thyroid lobe low-attenuation nodule. CT ABDOMEN/PELVIS: Liver: Mild hepatic steatosis. No focal lesion. Gallbladder: No ductal dilation. Status post cholecystectomy. Spleen: Splenomegaly, craniocaudal length 15.1 cm. No focal lesion. Pancreas: Normal size without evidence of mass surrounding inflammation or ductal dilation. Adrenals: Unremarkable Kidneys: 18 mm left renal pelvis obstructing calculus with mild hydronephrosis. Several other bilateral nonobstructing calculi. Homogeneous enhancement. No suspicious mass Bladder: 3 mm calculus at the left UVJ/posterior urinary bladder wall. Reproductive Organs: Status post hysterectomy and resection of the previously noted pelvic mass.. Soft tissue nodules within the hysterectomy bed with mild enhancement (series 604 images 79-71). The larger of the nodule measures 12 mm. Bowel: Stomach is unremarkable. No bowel dilation or wall thickening. Colonic diverticulosis without diverticulitis. Moderate colonic stool. Contrast is noted throughout the small bowel. Appendix: Normal appendix. Lymph nodes: Unremarkable. Vasculature: Mild diffuse atherosclerotic calcifications are noted. Peritoneum / Retroperitoneum: 14 mm soft tissue lesion left anterior pelvis (series 3 image 90 Bones: No suspicious osseous lesions. Soft tissue: Skin thickening anterior pelvic wall, from recent surgery. CT/CT Chest, Abd, Pel w/Contrast IMPRESSION: 1. Few scattered less than 6 mm indeterminate pulmonary nodules. Otherwise, no evidence of metastatic disease in the thorax. 2. Status post hysterectomy and resection of previously noted mass. Small inde terminate soft tissue nodules noted within the anterior pelvic mesentery and hysterectomy bed. These may represent sequela of postoperative changes. However, peritoneal carcinomatosis can not be excluded. Attention on follow-up is recommended. 3. 18 mm left renal pelvis obstructing calculus with mild hydronephrosis. Mult iple other nonobstructing calculi. 4. 3 mm left UVJ/posterior urinary bladder wall calculus. Reading Location: [facility]
== END | disposition home or self-care (01) ==
LOC: CT 15:27
PROVIDERS: PCP Family Medicine; Referring Provider Internal Medicine Hematology & Oncology; Visit Provider Internal Medicine Hematology & Oncology
DX: C49.5 Malignant neoplasm of connective and soft tissue of pelvis (principal)
CPT/HCPCS: 71260; 74177; Q9967; A4216

== ENCOUNTER 2025-04-02 09:39 | Day surgery (SDC) | payer BC, SELFPAY ==
--- NOTE | 2025-03-28 16:33 | PAT.ANESEVAL ---
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 When Was Last Pacemaker Check QUESTION #4 FULL TEXT: You/Your Family Experience fever (hyperthermia) with Anesthesia Last Oral Intake Last Oral intake: Last Oral Intake NPO since Meds taken in AM with sips of water? 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 - telescope repairer: PONV - telescope repairer Female Yes 03/28/25 14:20 HX of Motion Sickness No 03/28/25 14:20 HX of N/V After Surgery No 03/28/25 14:20 Non-Smoker No 03/28/25 14:20 Duration of Surgery greater No 03/28/25 14:20 than 60 minutes Number of Risk Factors 1 03/28/25 14:20 PONV Score Low Risk 03/28/25 14:20 Height & Weight Height & Weight: Anesthesia: Height & Weight Height 5 ft 7 in 02/26/25 11:18 Respiratory Assessment Respiratory Assessment - telescope repairer: Respiratory Tract Infection Hx - telescope repairer Hx Respiratory Tract Infection No 03/28/25 14:20 STOP Sleep Apnea STOP Sleep Apnea - telescope repairer: STOP Sleep Apnea - telescope repairer Hx Hypertension Yes 03/28/25 14:20 Hx Sleep Apnea No 03/28/25 14:20 CPAP BIPAP Do you snore loudly (louder Yes 03/28/25 14:20 than talking or can be heard Do you often feel tired/ No 03/28/25 14:20 fatigued/ sleepy during daytime? Has anyone observed you stop No 03/28/25 14:20 breathing during sleep? STOP Results Positive 03/28/25 14:20 QUESTION #5 FULL TEXT : Do you snore loudly (louder than talking or can be heard through closed doors)? 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 Specify any problems Hx of Preganancy in last 3 No 03/28/25 14:20 Months Nurse Filling Out Transfusion DSCHRIBER 03/28/25 14:20 & Questions: Date: 03/28/25 03/28/25 14:20 Time: 14:21 03/28/25 14:20 Patient unable to answer at this time (ie. 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 History - telescope repairer: /Reproductive Hx- telescope repairer Hx Now No 03/28/25 14:20 Gestational Age (in weeks): EDC: Hx Hx Para Hx Section SAB No 03/28/25 14:20 PFSH Medical History (Updated 03/28/25 @ 16:[address] Imani Persaud MD) Cancer Back pain Shortness of breath on exertion Leg cramps History of stress test Primary leiomyosarcoma of pelvis Anemia due to chronic blood loss Menorrhagia Wears dentures High cholesterol Loss of consciousness Gastric reflux Smoker Cardiology follow-up encounter History of echocardiogram Cardiac murmur History of non-ST elevation myocardial infarction (NSTEMI) (06/2014) Essential (primary) hypertension Atherosclerosis of coronary artery without angina pectoris Kidney stones Home Medications ?Medication ?Instructions ?Recorded ?Last Taken ?Type aspirin 81 mg chewable tablet 81 mg PO DAILY@0800 hx of mi 06/09/19 05/23/22 History atorvastatin 80 mg tablet 80 mg PO QHS cholesterol #90 tabs 11/29/23 Unknown Rx famotidine 20 mg tablet (Pepcid) 20 mg PO BID 11/29/23 Unknown History sertraline 50 mg tablet (Zoloft) 50 mg PO QHS 11/29/23 Unknown History Allergy/AdvReac Type Severity Reaction Status Date / Time No Known Allergies Allergy Verified 03/28/25 15:35 Family History Father Kidney disease Aunt Cancer paternal Other Heart disease Surgical History History of cardiac catheterization Hx of oral surgery Hx laparoscopic cholecystectomy Hx of left cataract extraction History of hysterectomy Cataract extraction status of right eye Hx of tubal ligation History of coronary artery stent placement (03/31/21) Social History household members: spouse housing: house Smoking Status: Current every day smoker tobacco type: cigarettes Tobacco: How many years used: 39 alcohol intake: never substance use type: does not use caffeine: Yes Type: coffee Number of servings: 1 and tea Number of servings: 2 Audit: Pertinent Findings Pertinent Findings EKG Perinent findings: 05/25/2022. Sinus rhythm with first-degree AV block. Nonspecific ST and T wave abnormality. Stress test pertinent findings: 03/29/2021. EF 73%. Prior anterior MS noted with mild vinh-infarct reversible ischemia. Echo (EF%) pertinent findings: 05/25/2022. EF 60%. No aortic stenosis is noted. Heart catheterization pertinent findings: 04/07/2021. Significant proximal right coronary artery stenosis (80%). Previously placed stent in the LAD is patent. EF is 60%. ANTHONY placed in the proximal RCA with resultant stenosis of 0%. Consult pertinent findings: 11/29/2023. Shree DANIELLE. 1. Status post coronary artery stent [id number] to the proximal LAD?patent; ANTHONY to the proximal RCA?patent. Continue medical therapy. 2. Hypertension?chronic-controlled Recommendation Anesthesia Recommendation Anesthesia recommendation: OPTIMIZED for anesthesia
[2025-04-02] VITALS (12 sets, daily range): BP systolic 107–123; BP diastolic 56–71; PULSE 60–76; RESP 14–16; TEMP 36.3–37; O2SAT 89–97; BMI 35.2
--- NOTE | 2025-04-02 09:51 | PRE.ANES_ITS ---
ASA Classification* ASA Classification ASA Classification: 3 Assessment & Plan Anesthesia* Anesthesia Assessment Anesthesia Assessment: Discussed sedation and/or anesthesia options, risks, benefits, and alternatives with patient/parents/legal guardian/POA. Questions invited. The patient/parents/legal guardian/POA seems to understand and agrees to proceed with anesthesia plan. Reviewed the physical assessment, medical history, allergy history and patient home medications list prior to surgery/procedure/anesthetic and documented any changes. Performed airway and anesthesia risk assessments. Anesthesia Type Anesthesia Type: MAC Anesthesia Focused Assessment* Airway Assessment Mouth opens: >3 cm Mallampati Score: II Focused Labs Anesthesia Preop lab: CBC WBC 8.2 K/mm3 (4.4-11.0) 01/10/25 13:45 01/10/25 RBC 4.62 M/mm3 (4.2-5.4) 01/10/25 13:45 01/10/25 Hgb 13.9 g/dL (12.0-15.0) 01/10/25 13:45 01/10/25 Hct 42.6 % (37-47) 01/10/25 13:45 01/10/25 Plt Count 250 K/mm3 (150-450) 01/10/25 13:45 01/10/25 CHEMISTRY Potassium 4.2 mmol/L (3.3-5.1) 01/10/25 13:45 01/10/25 Sodium 138 mmol/L (133-145) 01/10/25 13:45 01/10/25 Magnesium 2.1 mg/dL (1.6-2.6) 11/30/22 14:57 11/30/22 BUN 12 mg/dL (4-19) 01/10/25 13:45 01/10/25 Creatinine 0.6 mg/dL (0.6-1.0) 01/10/25 13:45 01/10/25 Glucose 95 mg/dL (70-99) 01/10/25 13:45 01/10/25 POC Glucose 167 mg/dL (74-106) H 05/29/22 12:06 05/29/22 TSH 2.02 uIU/mL (0.358-3.74) 11/30/22 14:57 COAG PT 13.8 SECONDS (11.7-14.9) 05/25/22 15:09 Pre-Assessment Diagnosis/Proposed Procedure Planned Operative Procedure(s): INSERTION VASCULAR PORT RIGHT POSS LEFT Anesthesia History 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 When Was Last Pacemaker Check QUESTION #4 FULL TEXT: You/Your Family Experience fever (hyperthermia) with Anesthesia Last Oral Intake Last Oral intake: Last Oral Intake NPO since Meds taken in AM with sips of water? 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 Female Yes 03/28/25 14:20 HX of Motion Sickness No 03/28/25 14:20 HX of N/V After Surgery No 03/28/25 14:20 Non-Smoker No 03/28/25 14:20 Duration of Surgery greater No 03/28/25 14:20 than 60 minutes Number of Risk Factors 1 03/28/25 14:20 PONV Score Low Risk 03/28/25 14:20 Height & Weight Height & Weight: Anesthesia: Height & Weight Height 5 ft 7 in 03/30/25 08:51 Weight: 101.151 kg 03/30/25 08:51 Respiratory Assessment Respiratory Assessment - wire wrapper machine operator: Respiratory Tract Infection Hx - wire wrapper machine operator Hx Respiratory Tract Infection No 03/28/25 14:20 STOP Sleep Apnea STOP Sleep Apnea - wire wrapper machine operator: STOP Sleep Apnea - wire wrapper machine operator Hx Hypertension Yes 03/28/25 14:20 Hx Sleep Apnea No 03/28/25 14:20 CPAP BIPAP Do you snore loudly (louder Yes 03/28/25 14:20 than talking or can be heard Do you often feel tired/ No 03/28/25 14:20 fatigued/ sleepy during daytime? Has anyone observed you stop No 03/28/25 14:20 breathing during sleep? STOP Results Positive 03/28/25 14:20 QUESTION #5 FULL TEXT : Do you snore loudly (louder than talking or can be heard through closed doors)? 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 Specify any problems Hx of Preganancy in last 3 No 03/28/25 14:20 Months Nurse Filling Out Transfusion DSCHRIBER 03/28/25 14:20 & Questions: Date: 03/28/25 03/28/25 14:20 Time: 14:21 03/28/25 14:20 Patient unable to answer at this time (ie. 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: /Reproductive Hx- wire wrapper machine operator Hx Now No 03/28/25 14:20 Gestational Age (in weeks): EDC: Hx Hx Para Hx Section SAB No 03/28/25 14:20 Active Medications Active Medications: Current Medications Generic Name Dose Route Start Last Admin Trade Name Freq PRN Reason Stop Dose Admin Cefazolin Sodium 2 gm/ Sodium 110 mls @ 150 mls/hr 04/02/25 11:30 Chloride IV 04/02/25 12:13 INTRAOP ONE PFSH Medical History Cancer Back pain Shortness of breath on exertion Leg cramps History of stress test Primary leiomyosarcoma of pelvis Anemia due to chronic blood loss Menorrhagia Wears dentures High cholesterol Loss of consciousness Gastric reflux Smoker Cardiology follow-up encounter History of echocardiogram Cardiac murmur History of non-ST elevation myocardial infarction (NSTEMI) (06/2014) Essential (primary) hypertension Atherosclerosis of coronary artery without angina pectoris Kidney stones Home Medications ?Medication ?Instructions ?Recorded ?Last Taken ?Type aspirin 81 mg chewable tablet 81 mg PO DAILY@0800 hx o f mi 06/09/19 05/23/22 History atorvastatin 80 mg tablet 80 mg PO QHS cholesterol #90 tabs 11/29/23 Unknown Rx famotidine 20 mg tablet (Pepcid) 20 mg PO BID 11/29/23 Unknown History sertraline 50 mg tablet (Zoloft) 50 mg PO QHS 11/29/23 Unknown History Allergy/AdvReac Type Severity Reaction Status Date / Time No Known Allergies Allergy Verified 03/29/25 14:36 Family History Father Kidney disease Aunt Cancer paternal Other Heart disease Surgical History History of cardiac catheterization Hx of oral surgery Hx laparoscopic cholecystectomy Hx of left cataract extraction History of hysterectomy Cataract extraction status of right eye Hx of tubal ligation History of coronary artery stent placement (03/31/21) Social History household members: spouse housing: house Smoking Status: Current every day smoker tobacco type: cigarettes Tobacco: How many years used: 39 alcohol intake: never substance use type: does not use caffeine: Yes Type: coffee Number of servings: 1 and tea Number of servings: 2 Review of Systems (Anesthesia) ROS Narrative System reviewed and no additional complaints, except as documented.
[2025-04-02] MEDS: Lactated Ringers 1,000 ML 15 ML IV (10:17)
--- NOTE | 2025-04-02 11:20 | PCM.HP.BLA ---
History and Physical Date of Admission: 04/02/25 Intake Vital Signs 02/26/2511:18 03/26/2513:32 Height 5 ft 7 in Weight: 223 lb 2 oz 225 lb BMI 34.9 BP 116/75 121/80 H Blood Pressure Location Lt brachial Lt brachial Position Sitting Sitting Respiration 18 17 Pulse 76 96 Pulse Source Monitor Monitor Temp 98.5 F Pulse Oximetry (%) 96 95 Oxygen Delivery Method room air room air Intake Visit Reasons: PORT PLACEMENT Chief Complaint: port placement Is patient in pain?: No Allergies No Known Allergies Allergy (Verified 03/26/25 13:33) Medications ?Medication ?Instructions ?Recorded ?Confirmed ?Type aspirin 81 mg chewable tablet 81 mg PO DAILY@0800 hx of mi 06/09/19 03/26/25 History atorvastatin 80 mg tablet 80 mg PO QHS cholesterol #90 tabs 11/29/23 03/26/25 Rx famotidine 20 mg tablet (Pepcid) 20 mg PO BID 11/29/23 03/26/25 History sertraline 50 mg tablet (Zoloft) 50 mg PO DAILY 11/29/23 03/26/25 History PFSH Medical History (Updated 03/26/25 @ 13:32 by Isabella Hylton) Primary leiomyosarcoma of pelvis Postoperative pain Anemia due to chronic blood loss Menorrhagia Uterine fibroid Wears dentures Shortness of breath on exertion History of blood transfusion High cholesterol Loss of consciousness Gastric reflux Smoker Cardiology follow-up encounter History of echocardiogram Cardiac murmur Nicotine dependence History of non-ST elevation myocardial infarction (NSTEMI) (06/2014) Essential (primary) hypertension Atherosclerosis of coronary artery without angina pectoris Kidney stones Surgical History History of hysterectomy Cataract extraction status of right eye Hx of tubal ligation History of cholecystectomy History of coronary artery stent placement (03/31/21) Family History Father Kidney diseaseAunt Cancer paternalOther Heart disease Social History household members: spouse housing: house Smoking Status: Current every day smoker tobacco type: cigarettes Tobacco: How many years used: 39 alcohol intake: never substance use type: does not use caffeine: Yes Type: coffee Number of servings: 1 and tea Number of servings: 2 HPI HPI HPI: Patient is a 54-year-old female here for port placement for chemotherapy. ROS General General: Yes weight change; No appetite, fatigue, colon cancer, breast cancer or weakness HEENT HEENT: Yes eye surgery; No difficulty swallowing, eye injury, swollen glands or hoarseness Endo Endocrine: No thyroid disease, diabetes mellitus, thyroid cancer, Hair loss, heat intolerance or cold intolerance Skin Skin: No rash or changing moles Musc Musculoskeletal: Yes back problems; No arthritis, rheumatoid arthritis, gout or joint pain Cardio Cardiovascular: Yes high blood pressure, heart attack and heart stent; No murmur, pacemaker, heart disease, atrial fibrillation, palpitations, shortness of breath with exertion or chest pain Additional Details: Blood pressure has been good, meds on hold at this time Psych Psychiatric: No depression, anxiety or hearing voices Resp Respiratory: No shortness of breath, No sleep apnea, Yes cough, No COPD, No asthma, No emphysema and No wheezing Gastro Gastrointestinal: No abdominal pain, No nausea or vomiting, No diarrhea, No constipation, No blood in stool, Yes acid reflux, No hemorrhoids, No ulcers, No gallbladder problem and No black,tarry stools Benjamin Hematologic: No blood thinners, No blood disorders, No bleeding, No anemia and No blood clots Neuro Neurologic: No system reviewed and no additional complaints, except as documented, No as per HPI, No abnormal gait, No abnormal hearing, No abnormal movements, No abnormal speech, No behavioral changes, No burning sensations, No confusion, No convulsions, No disequilibrium, No dizziness, No localized weakness, No frequent falls, No headache(s), No lack of coordination, No loss of vision, No memory loss, No numbness, No other visual disturbances, No radicular pain, No restless legs, No sensory deficit, No syncope, No tingling, No tremor(s), No weakness and No other Exam Const General: cooperative Orientation: alert and oriented x3 HENMT Head: normal to inspection Neck Neck: normal visual inspection and full ROM Chest Chest palpation & inspection: normal inspection of the chest Resp Effort & Inspection: normal respiratory effort Auscultation: clear to auscultation bilaterally Cardio Rate: regular rate Rhythm: regular rhythm GI Inspection: non-distended Palpation: soft and nontender Skin General: no rashes or lesions noted Neuro General: patient alert and patient oriented x3 Extrem General: full ROM Psych Appearance: grossly normal Mental Status: mental status grossly normal Assessment and Plan Assessment and Plan (1) Encounter for insertion of venous access port: Status: Acute Plan: The patient requires port for chemotherapy for leiomyosarcoma. I discussed port placement with her in detail. I discussed the procedure in detail as well as the risks including but not limited to bleeding, infection, pneumothorax, DVT. Patient understands the risks and is willing to proceed Theo Richard MD Pager: [facility] [address] [place] [address], [address] [place] [address] Office: I have examined the patient and the H&P has been reviewed. There are no clinical changes since date of exam.
[2025-04-02] MEDS: Cefazolin 2 GM in 0.9% Normal Saline (100mL Bag) 100 ML IV (11:25)
[2025-04-02] MEDS: Bupivacaine Mpf 0.5% 30 ML VIAL (11:53)
[2025-04-02] MEDS: Lidocaine 1% (20 ml mdv) 20 ML Vial (11:53)
--- NOTE | 2025-04-02 11:53 | PCM.POST.ANE ---
Anesthesia: Postop Eval I Current Vital Signs Temperature: 97.4 F Pulse Rate: 72 Blood Pressure: 115/68 Respiratory Rate: 14 Pulse Ox: 97 Oxygen Delivery Method: Room Air Assessment Airway patent: Yes Spontaneous unlabored respirations: Yes Mental status: Awake nausea: No Vomiting: No Anesthesia Complication: No Fluid Hydration Crystalloid volume administer (ml): 500 Total IV fluid infused: 500 Progress Note Anesthesia document: Postop Eval 1 completed: Yes
--- NOTE | 2025-04-02 12:15 | RAD_ITS ---
PROCEDURE: CXR FOR LINE PLACEMENT 04/02/2025 REASON FOR EXAM: LINE PLACEMENT TECHNIQUE: Portable chest radiograph obtained. COMPARISON: Prior study dated June 16, 2021. FINDINGS: A right-sided port a catheter is seen with the tip at the junction of the superior vena cava and right atrium. EKG electrodes are seen. Heart size is upper limits of normal. The lungs are clear. RAD/CXR for Line Placement IMPRESSION: A right-sided port a catheter has been placed with the tip at the junction of t he superior vena cava and right atrium. The heart size is upper limits of normal. Reading Location: [facility]
--- NOTE | 2025-04-02 12:16 | OP.PCM_ITS ---
Operative Report (Standard) Operative Information Date of Procedure: 04/02/25 Pre-Operative Diagnosis: Need for vascular access for chemotherapy Post-Operative Diagnosis: Same Surgery/Procedure Performed: Ultrasound and fluoroscopy guided right chest port placement utilizing right IJ net front end developer: No Type of Anesthesia: Local MAC RN Documented Start/Stop Times: Operation Date: 04/02/25 11:30 Case Time Into Pre-Op 04/02/25 09:52 Out of Pre-Op 04/02/25 11:19 Anesthesia Start 04/02/25 11:21 Into Room 04/02/25 11:21 Procedure Start 04/02/25 11:39 Procedure End 04/02/25 11:55 Anesthesia End 04/02/25 11:59 Out of Room 04/02/25 11:59 Procedure Start Time: 11:39 Procedure Stop Time: 11:55 Select all DRAINS/GRAFTS/IMPLANTS that apply: Implanted device Implanted device details: 8 [place] [employer] Estimated Blood Loss: 5 Specimen collected: No Description of surgery: After obtaining informed consent patient was brought back to the operating room MAC anesthesia was induced and the right chest and neck were prepped in normal sterile fashion. Ultrasound was used to evaluate both IJs and the right IJ was selected. Next, using a needle, the right IJ was accessed and a guidewire was passed on into the superior vena cava under fluoroscopy guidance. A small incision was made over the puncture site and the dilator introducer was placed over the guidewire. Next this was capped and the pocket was made for the port. 1% lidocaine with epinephrine was injected in the proposed port site. An incision was made with scalpel. Electrocautery was used to make a pocket under the skin and subcutaneous tissue. Hemostasis was obtained. Next, the catheter was tunneled up to the neck incision site and placed through the introducer. The peel-away introducer was removed and the position of the catheter was confirmed on fluoroscopy. Next, the catheter was trimmed and attached to the port with the locking device. Interrupted 2-0 Vicryl sutures were used to anchor the port to the chest wall and then the port was placed inside the pocket. The pocket was then flushed with saline and the port irrigated with saline. There was good blood return and the port flushed easily. Next, heparin was injected into the port. The skin was closed with subcutaneous interrupted 3-0 Vicryl sutures. A single 3-0 Vicryl sutures placed under the skin at the neck incision site. Steri-Strips were placed as well as op sites. Patient tolerated procedure well, was taken to PACU in stable condition. Chest x-ray will be obtained. Surgical Findings: None Complications Complications: No Admit VTE Documentation VTE Mechan Device Prophylaxis: SCD's
--- NOTE | 2025-04-02 12:18 | DCINST_ITS ---
Discharge Instructions Procedure Gallbladder Diet Discharge Diet: Light diet - advance as tolerated Activity Discharge Activity: May Not Drive (for 2-3 days or while taking narcotic pain medications.) and - (Do not drive, work heavy equipment or sign legal documents for 24 hours.) May shower in (days): 1 Lifting Restrictions: 20 lbs for 2 weeks Additional Activity Instructions:: Pain medication may cause nausea. You should typically eat light foods as you take your pain medications. Pain medication may also cause constipation. If this is a problem for you, please discuss with your doctor. Resume aspirin tomorrow Dressing / Incision Call your doctor if your incision/area has: Continuous Slow Oozing, Sudden Increased Bleeding, Increased Pain/ Swelling, Increased Redness and Foul Smelling Discharge Call your doctor if you observe: Fever of 101 or Higher Suture Line Care: Avoid Pulling/Pushing and Avoid Pinching/Bending Remove Dressing in: 2 days Additional Dressing/Incision Instructions:: Leave operative bandaids on for 2 days. When you remove dressing, leave Steri-Strips on until your follow-up appointment, or until the Steri-Strips fall off on their own. Follow Up Care Please Follow Up With: Theo Richard MD When: Please call to schedule 2 week follow up appointment. [phone] Test Results: Test results from this visit will be discussed in further detail at your follow- up appointment, if applicable. Discharge Plan Admission Attending Provider: Theo Richard Primary Care Provider: David Tse Instructions Print Language: Sudanese Discharge Orders/Prescriptions Prescriptions: No Action sertraline [Zoloft] 50 mg tablet 50 mg PO QHS famotidine [Pepcid] 20 mg tablet 20 mg PO BID atorvastatin 80 mg tablet 80 mg PO QHS Qty: 90 3RF aspirin 81 MG tablet,chewable 81 mg PO DAILY@0800 Referrals / Follow Up: David Tse MD [Primary Care Provider] - Disposition Disposition (needs filled in before D/C Order can be placed): Home, Self Care
--- NOTE | 2025-04-02 13:05 | POSTOPAN2_ITS ---
Anesthesia Postop Eval I Sum Postop Eval Completion status Anesthesia document: Postop Eval 1 completed: Yes Anesthesia Postop Eval I Summary Anesthesia Postop Eval I Summary: Anesthesia Postop Eval I: Assessment Summary Airway patent Yes 04/02/25 12:06 OPERATIVE [email or web address] Spontaneous unlabored Yes 04/02/25 12:06 OPERATIVE [email or web address] respirations Mental status Awake 04/02/25 12:06 OPERATIVE [email or web address] nausea No 04/02/25 12:06 OPERATIVE [email or web address] Vomiting No 04/02/25 12:06 OPERATIVE [email or web address] Anesthesia Postop Eval I: Fluid Summary Crystalloid volume administer 500 04/02/25 12:06 OPERATIVE [email or web address] (ml) Colloids volume administered ( ml) Blood Product volume administered (ml) Total IV fluid infused 500 04/02/25 12:06 OPERATIVE [email or web address] Anesthesia Postop Eval I: Summary Notes Anesthesia Complication No 04/02/25 12:06 OPERATIVE [email or web address] Anesthesia Complication Comment: Post-operative progress note Anesthesia: Postop Eval II Evaluation Mental status: Awake Pain Level: 0 nausea: No Vomiting: No
--- NOTE | 2025-04-02 13:05 | PCM.POSTANE2 ---
Anesthesia Postop Eval I Sum Postop Eval Completion status Anesthesia document: Postop Eval 1 completed: Yes Anesthesia Postop Eval I Summary Anesthesia Postop Eval I Summary: Anesthesia Postop Eval I: Assessment Summary Airway patent Yes 04/02/25 12:06 FILM LABORATORY [email or web address] Spontaneous unlabored Yes 04/02/25 12:06 FILM LABORATORY [email or web address] respirations Mental status Awake 04/02/25 12:06 FILM LABORATORY [email or web address] nausea No 04/02/25 12:06 FILM LABORATORY [email or web address] Vomiting No 04/02/25 12:06 FILM LABORATORY [email or web address] Anesthesia Postop Eval I: Fluid Summary Crystalloid volume administer 500 04/02/25 12:06 FILM LABORATORY [email or web address] (ml) Colloids volume administered ( ml) Blood Product volume administered (ml) Total IV fluid infused 500 04/02/25 12:06 FILM LABORATORY TECHNICIAN.HBARR Anesthesia Postop Eval I: Summary Notes Anesthesia Complication No 04/02/25 12:06 FILM LABORATORY [email or web address] Anesthesia Complication Comment: Post-operative progress note Anesthesia: Postop Eval II Evaluation Mental status: Awake Pain Level: 0 nausea: No Vomiting: No
== END 2025-04-02 13:54 | disposition home or self-care (01) ==
LOC: SDC 09:39 → AC 09:52
PROVIDERS: PCP Family Medicine; Referring Provider Surgery; Visit Provider Surgery
PROC: (CPT 36561; principal; 2025-04-02 11:15)
DX: Z45.2 Encounter for adjustment and management of vascular access device (principal); C49.5 Malignant neoplasm of connective and soft tissue of pelvis; K21.9 Gastro-esophageal reflux disease without esophagitis; I25.10 Atherosclerotic heart disease of native coronary artery without angina pectoris; F17.210 Nicotine dependence, cigarettes, uncomplicated; E78.00 Pure hypercholesterolemia, unspecified; I10 Essential (primary) hypertension; Z79.82 Long term (current) use of aspirin; Z79.899 Other long term (current) drug therapy
CPT/HCPCS: 36561; 00532; 71045; 77001; C1788; J2405

== ENCOUNTER 2025-04-28 19:28 | Emergency (ER) | payer BC, SELFPAY ==
[2025-04-28 19:29] VITALS: BP 116/66; PULSE 103; RESP 16; TEMP 37.6; O2SAT 97; BMI 34.4
--- NOTE | 2025-04-28 20:03 | RAD_ITS ---
PROCEDURE: CHEST PA AND LATERAL 04/28/2025 REASON FOR EXAM: NEUTROPENIC FEVER TECHNIQUE: CHEST PA AND LATERAL COMPARISON: Chest radiograph 04/02/2025. FINDINGS: Hardware: Stable right IJ port with catheter tip terminating in the right atrium. Heart: The heart size is normal. Mediastinum: The mediastinal contour is stable. Lungs: No focal consolidation, pleural effusion or pneumothorax. Bones: Degenerative changes are identified within the thoracic spine. RAD/Chest PA and Lateral IMPRESSION: NO SIGNIFICANT CHANGE SINCE THE PRIOR EXAM. Reading Location: [id number]
[2025-04-28 20:07] LABS: Absolute Lymphocyte Count 0.75 X10^3/uL (0.83-4.51); Absolute Neutrophil Count 3.5 X10^3/uL (2.0-7.7); Basophil# 0.01 X10^3/uL; Basophil% 0.2 % (0-1); Eosinophil# 0.01 X10^3/uL; Eosinophils% 0.2 % (0-5); Hematocrit 37.8 % (37-47); Hemoglobin 13.1 g/dL (12.0-15.0); Lymphocyte # 0.75 X10^3/ul (0.83-4.51); Lymphocyte % 17.3 % (19-41); Mean Corp Hgb Conc 34.7 g/dL (32-36); Mean Corpuscular Hgb 28.9 pg (27.0-32.0); Mean Corpuscular Volume 83.3 fL (81-99); Mean Platelet Vol. 10.6 fl (6.2-12.0); Monocyte# 0.02 X10^3/uL; Monocyte% 0.5 % (0-10); NRBC Flagged by Analyzer 0 % (0-5); Neutrophil # 3.52 X10^3/uL (2.7-7.7); Neutrophil % 81.3 % (47-70); POSITIVE COUNT YES; POSITIVE MORPHOLOGY YES; Platelet Count 67 K/mm3 (150-450); RBC Distribution Width SD 39.2 fl (35.1-43.9); Red Blood Count 4.54 M/mm3 (4.2-5.4); White Blood Count 4.3 K/mm3 (4.4-11.0)
[2025-04-28 20:16] LABS: International Normalized Ratio 1.2; Prothrombin Time (Protime)PT. 15.3 SECONDS (11.7-14.9)
[2025-04-28 20:17] LABS: Partial Thromboplast Time 29.8 Seconds (24.1-36.2)
[2025-04-28 20:29] LABS: Differential Indicated SCAN CRITERIA MET
[2025-04-28 20:31] VITALS: BP 116/66; PULSE 103; RESP 18; TEMP 37.6; O2SAT 97
[2025-04-28 20:32] LABS: Platelet Estimate MOD DEC (ADEQ)
[2025-04-28 20:33] LABS: Red Cell Morphology NORM C+C NORMAL (NORM C&C)
[2025-04-28 20:42] LABS: ALB/GLOB Ratio 1.1 RATIO (0.9-2.4); AST(SGOT) 21 U/L (<=31); Alanine Aminotransfer ALT/SGPT 18 U/L (<=34); Albumin, Serum 3.4 g/dL (3.5-5.0); Alkaline Phosphatase 93 U/L (35-104); Anion Gap 11 (5-15); BUN 11 mg/dL (4-19); BUN/Creat Ratio 18.8 RATIO (10-20); Calcium,Total 8.4 mg/dL (7.6-11.0); Carbon Dioxide 18.6 mmol/L (21.0-32.0); Chloride 103 mmol/L (98-108); Creatinine, Serum 0.57 mg/dL (0.70-1.20); EST Glomerular Filtration Rate 108 (>60); Estimated Creatinine Clearance 136.93 ml/min (50-250); Globulin 3.2 g/dL (2.2-4.2); Glucose 130 mg/dL (70-99); Protein, Total 6.6 g/dL (5.9-8.4); Sodium Level 132 mmol/L (133-145); Total Bilirubin 1.02 mg/dL (0.00-1.30)
[2025-04-28 21:00] VITALS: BP 111/65; PULSE 86; RESP 16; TEMP 38.2; O2SAT 97
[2025-04-28 21:01] LABS: Lactic Acid < 1.0 mmol/L (0.0-2.0)
--- NOTE | 2025-04-28 21:09 | EX.ED.DYSGE1 ---
HPI History of Present Illness Chief Complaint: Fever Informant: patient and spouse/S.O. Narrative Narrative: From oncology note dated 26 April 2025: 54-year-old female with incidental finding of a large left pelvic mass on CT when she presented with symptoms due to urinary tract infection. Past medical history notable for status post hysterectomy, bilateral salpingectomy and right oophorectomy for fibroid uterus was excessive menstrual bleeding causing iron deficiency anemia in 2021. Transvaginal ultrasound suggested left ovarian enlargement. January 26, 2025 underwent exploratory laparotomy left oophorectomy and removal of pelvic mass, omentectomy by Dr. Grady. 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 Left oophorectomy showed no significant pathologic changes, omentum showed no evidence of malignancy and peritoneal washings showed no malignant cells. Was seen at [facility] sarcoma clinic by Dr. Cunningham in March 2025 who recommended standard adjuvant chemotherapy with gemcitabine Taxotere for 6 cycles followed by maintenance pazopanib plus letrozole indefinite/till progression. Started adjuvant gemcitabine and Taxotere April 19, 2025. Patient had chemotherapy on April. She has been doing well. This evening noted a fever and came to the emergency department. Temperature here on my examination is 100.8. She has not had any antipyretics. She states she otherwise feels pretty well other than she has body aches. She denies any urinary symptoms no cough. No oral pharyngeal symptoms. No rashes. She has a right chest port which she states is been doing well. She does not feel short of breath and has no abdominal pain. No lower extremity swelling. [facility] Medical History Encounter for education Cancer Back pain Shortness of breath on exertion Leg cramps History of stress test Primary leiomyosarcoma of pelvis Anemia due to chronic blood loss Menorrhagia Wears dentures High cholesterol Loss of consciousness Gastric reflux Smoker Cardiology follow-up encounter History of echocardiogram Cardiac murmur History of non-ST elevation myocardial infarction (NSTEMI) (06/2014) Essential (primary) hypertension Atherosclerosis of coronary artery without angina pectoris Kidney stones Home Medications ?Medication ?Instructions ?Recorded ?Last Taken ?Type aspirin 81 mg chewable tablet 81 mg PO DAILY@0800 hx of mi 06/09/19 03/28/25 History atorvastatin 80 mg tablet 80 mg PO QHS cholesterol #90 tabs 11/29/23 Unknown Rx famotidine 20 mg tablet (Pepcid) 20 mg PO BID 11/29/23 Unknown History sertraline 50 mg tablet (Zoloft) 50 mg PO QHS 11/29/23 Unknown History lidocaine-prilocaine 2.5 %-2.5 % 1 applic topical ONCE PRN port 04/04/25 Unknown Rx topical cream access 30 days #30 grams ondansetron 8 mg disintegrating 8 mg PO Q8H PRN nausea and 04/04/25 Unknown Rx tablet vomiting #30 tabs prochlorperazine maleate 10 mg 10 mg PO Q6H PRN nausea and 04/04/25 Unknown Rx tablet vomiting #30 tabs dexamethasone 4 mg tablet 8 mg (2 x 4 mg) PO .COMPLEX #72 04/05/25 Unknown Rx tabs Allergy/AdvReac Type Severity Reaction Status Date / Time No Known Allergies Allergy Verified 04/28/25 19:29 Family History Father Kidney disease Aunt Cancer paternal Other Heart disease Surgical History H/O pelvic mass (~01/26/25) History of cardiac catheterization Hx of oral surgery Hx laparoscopic cholecystectomy Hx of left cataract extraction History of hysterectomy Cataract extraction status of right eye Hx of tubal ligation History of coronary artery stent placement (03/31/21) Social History household members: spouse housing: house Smoking Status: Current every day smoker tobacco type: cigarettes Tobacco: How many years used: 39 quit status: considering quitting alcohol intake: never substance use type: does not use caffeine: Yes Type: coffee Number of servings: 1 and tea Number of servings: 2 ROS ROS ED Constitutional Constitutional ED: Reports fever(s); Denies chills or weight loss Eyes Eyes: Denies change in vision or diplopia ENT ENT ED: Denies ear pain, rhinorrhea or sore throat Cardiovascular Cardiovascular: Denies chest pain, orthopnea, palpitations or racing heartbeat Respiratory/Chest Respiratory/Chest: Denies cough, dyspnea or orthopnea Gastrointestinal Gastrointestinal: Denies abdominal pain, diarrhea, nausea or vomiting Genitourinary Genitourinary ED: Denies dysuria, hematuria or urinary frequency Musculoskeletal Musculoskeletal: Reports arthralgias and myalgias Integumentary Denies abscess or rash Neurologic Neurologic: Denies headache(s) or weakness Psychiatric Psychiatric: Denies anxiety, depression, suicidal ideation or suicidal thoughts Endocrine Endocrinology: Denies polydipsia, polyphagia or polyuria Allergic/Immunologic Allergic/Immunologic ED: Denies mouth swelling, tongue swelling or urticaria EXAM Physical Exam Const Vital Signs: 04/28/25 19:29 04/28/25 19:35 04/28/25 20:31 Temperature 99.7 F H 99.7 F H Temperature Source Oral Oral Pulse Rate 103 H 103 H Respiratory Rate 16 18 Respiratory Effort Normal Non-Labored Respiratory Pattern Normal Blood Pressure 116/66 116/66 Blood Pressure Mean 82 82 Pulse Ox 97 97 Oxygen Delivery Method Room Air Room Air 04/28/25 21:00 04/28/25 22:00 04/28/25 22:59 Temperature 100.7 F H 100.2 F H Temperature Source Oral Oral Pulse Rate 86 88 Respiratory Rate 16 16 Respiratory Effort Respiratory Pattern Blood Pressure 111/65 127/65 H Blood Pressure Mean 80 85 Pulse Ox 97 99 Oxygen Delivery Method Room Air Room Air Room Air 04/28/25 22:59 Temperature 99.7 F H Temperature Source Oral Pulse Rate 88 Respiratory Rate 18 Respiratory Effort Respiratory Pattern Blood Pressure 111/81 H Blood Pressure Mean 91 Pulse Ox 99 Oxygen Delivery Method Room Air Positive well nourished and well developed General Appearance ED: well developed HEENT Reports normocephalic, head/scalp atraumatic and moist mucous membranes HEENT Narrative: No thrush or mucositis noted. No erythema is noted. Eyes PERRL and EOMs intact bilaterally Neck no lymphadenopathy, supple and no JVD Resp normal respiratory effort and clear to auscultation bilaterally Cardio regular rate, regular rhythm and no murmurs GI normal to inspection, nondistended, normoactive bowel sounds and non-tender Palpation: soft Back/Spine no CVA tenderness and normal ROM Extremity normal to inspection General Extremety ED: Negative for edema General Extremity: Negative for edema Neuro oriented x3 and CN's II-XII intact bilaterally Sensorium / Orientation: alert Motor Exam: strength 5/5 throughout Psych mental status grossly normal Mood & Affect: Negative for depressed or tearful Skin no rashes or lesions noted and no wounds MDM MDM MDM Narrative Medical decision making narrative: Differential diagnosis includes but not limited to chemotherapy-induced fever neutropenic fever UTI pneumonia bacteremia electrolyte abnormalities PREET anemia My independent interpretation the chest x-ray is no acute process. Radiology concurs. White count 4.3 no bands 81.3 neutrophils hemoglobin 13.1 platelet count of 67. INR is 1.2 PTT 29.8 BMP shows a CO2 of 18.6 anion gap of 11 BUN 11 creatinine 0.57 glucose of 130 lactic acid less than 1 normal LFTs urinalysis greater than 100 red cells greater than 100 white cells 5-10 squamous cells 2+ bacteria positive leukocyte Estrace negative nitrates. Blood and urine cultures were sent. The patient received Tylenol for fever as well as IV fluids. After urine was obtained the patient received a dose of ceftriaxone. History & Record Review Discussion w/independent historian: Patient and Significant other Additional record(s) reviewed:: Prior outpatient record and Prior labs Lab Data Attestation: I reviewed the patient's lab results. Labs: Laboratory Results - last 24 hr 04/28/25 04/28/25 19:50 21:55 WBC 4.3 L RBC 4.54 Hgb 13.1 Hct 37.8 MCV 83.3 MCH 28.9 MCHC 34.7 RDW Std Deviation 39.2 RDW Coeff of [place] 13.0 Plt Count 67 L MPV 10.6 Immature Gran % (Auto) 0.500 Neut % (Auto) 81.3 H Lymph % (Auto) 17.3 L [place] % (Auto) 0.5 Eos % (Auto) 0.2 Baso % (Auto) 0.2 Absolute Neuts (auto) 3.5 Absolute Lymphs (auto) 0.75 L Nucleated RBC % 0 Platelet Estimate MOD DEC RBC Morphology NORM C+C PT 15.3 H INR 1.2 APTT 29.8 Sodium 132 L Potassium 4.0 Chloride 103 Carbon Dioxide 18.6 L Anion Gap 11 BUN 11 Creatinine 0.57 L Estim Creat Clear Calc 136.93 Est GFR (MDRD) Non-Af 108 BUN/Creatinine Ratio 18.8 Glucose 130 H Lactic Acid < 1.0 Calcium 8.4 Phosphorus 2.1 L Magnesium 1.8 Total Bilirubin 1.02 AST 21 ALT 18 Alkaline Phosphatase 93 Total Protein 6.6 Albumin 3.4 L Globulin 3.2 Albumin/Globulin Ratio 1.1 Urine Color Mirna Urine Clarity Sl. Cloudy Urine pH 7.0 Ur Specific [place] 1.010 Urine Protein 100 H Urine Glucose (UA) Normal Urine Ketones Negative Urine Occult Blood 250 H Urine Nitrite Negative Urine Bilirubin Negative Urine Urobilinogen 1 H Ur Leukocyte Esterase 100 H Urine RBC > 100 SEEN Urine WBC >100 SEEN Ur Squamous Epith Cells 5-10 SEEN Urine Bacteria 2+ Urine Mucus 3+ Radiography Diagnostic Testing: Clinical Impression(s) from Imaging Studies Chest X-Ray 04/28/25 20:03 IMPRESSION: NO SIGNIFICANT CHANGE SINCE THE PRIOR EXAM. Reading Location: [id number] Discharge Plan Triage Chief Complaint: Fever ED Provider: Girish Mcgarry Dx/Rx/DC Orders Clinical Impression: UTI (urinary tract infection), Acute febrile illness, Immunocompromised patient Prescriptions: No Action sertraline [Zoloft] 50 mg tablet 50 mg PO QHS famotidine [Pepcid] 20 mg tablet 20 mg PO BID atorvastatin 80 mg tablet 80 mg PO QHS Qty: 90 3RF lidocaine-prilocaine 2.5-2.5 % cream 1 applic topical ONCE PRN (Reason: port access) 30 Days Qty: 30 2RF ondansetron 8 mg tablet,disintegrating 8 mg PO Q8H PRN (Reason: nausea and vomiting) Qty: 30 1RF prochlorperazine maleate 10 mg tablet 10 mg PO Q6H PRN (Reason: nausea and vomiting) Qty: 30 2RF dexamethasone 4 mg tablet 8 mg PO .COMPLEX Qty: 72 0RF Rx Instructions: 8 mg orally; twice daily ONLY the day before, the day of and the day after chemotherapy aspirin 81 MG tablet,chewable 81 mg PO DAILY@0800 Primary Care Provider: David Tse Referrals: David Tse MD [Primary Care Provider] - Print Language: Kiswahili
--- OUTSIDE RECORDS SUMMARY | 2025-04-28 21:16 | XMS RPT_ITS | CCD ---
Author Organization [facility] Care Team Providers Care Furnace Builder Name Role Phone Unavailable Primary Care Provider Unavailabl e Care Physician, No Primary Primary Care Provider Unavailable Dr. Joni Michel Attending Provider David Fink MD Primary Care Provider David Fikn MD Primary Care Provider Care Physician, No Primary Referring Provider Un available Dr. Joni Michel Attending Provider Dr. David Fink Primary Care Provider David Fink MD Primary Care Provider Unavailable Primary Care Provider Unavailabl e Mikel BLADDER BLOWER.CRACKER AND 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, Hilda Unavailable Elodia BLADDER BLOWER.CRACKER AND 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, [place] A Unavailable [phone] Darvin Grady MD Unavailable David Fink MD Primary Care Provider [phone] Dr. David Fink MD Primary Care Provider Dr. Isaiah Villanueva DO Attending Provider Dr. Isaiah Villanueva DO Emergency Provider Dr. Imani Persaud MD Attending Provider Nabil Lind Referring Provider Dr. Imani Persaud MD Referring Provider Areli BLADDER BLOWER - CRACKER AND 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, Ashok D Unavailable [phone] JUANA LINTON Referring Unavailable ALEKS, DAVID J Primary Care Unavailable ALEKS, DAVID J Primary Care Unavailable ALEKS, DAVID J Primary Care Unavailable ALEKS, DAVID J Primary Care Unavailable ALEKS, DAVID J Primary Care Unavailable SUSY SMITH Referring Unavailable ALEKS, DAVID J Primary Care Unavailable ISAÍAS RIBEIRO Referring Unavailable ALEKS, DAVID J Primary Care Unavailable DARVIN GRADY Attending Unavailable ALEKS, DAVID Primary Care Unavailable ASHOK HERBERT Attending Unavailable ALEKS, DAVID Primary Care Unavailable DARVIN GRADY Attending Unavailable ISCKARUS, ALISONOUR S Referring Unavailable ALEKS, DAVID Primary Care Unavailable DARVIN GRADY Admitting Unavailable DARVIN GRADY Attending Unavailable ALEKS, DAVID Primary Care Unavailable Aleks VALDEZ, Dr. Hernandez Referring Provider Jose Manuel VALDEZ, Dr. Venegas Attending Provider [phone] Jose Manuel VALDEZ, Dr. Venegas Referring Provider [phone] Jose Manuel VALDEZ, Dr. Venegas Other Provider Aleks VALDEZ, David Primary Care Provider [phone] Cori WHEELER [facility], Imani S Unavailable Shannan Kearney RN Unavailable Unavailable Shayna PRODUCT SUPPORT ENGINEER-C, Delmis Attending Provider CHRISTOPHER CUNNINGHAM Attending Unavailable [facility], DAIVD Primary Care Unavailable CORI, IMANI S Referring Unavailable Dr. Imani Persaud MD Referring Provider Cody PRODUCT SUPPORT ENGINEER-CKeron Attending Provider Imani Persaud Referring Unavailable IsckarusImani Attending Unavailable Gulkana, David Primary Care Unavailable IsckarusImani Attending Unavailable Isckarus, Mansour Referring Unavailable Aleks, David Primary Care Unavailable Isaiah Villanueva Attending Unavailable Aleks, David Primary Care Unavailable Theo Richard Referring Unavailable Theo Richard Attending Unavailable Gulkana, David Primary Care Unavailable CalabrTheo rajput Referring Unavailable CalabrettaTheo Attending Unavailable CalabrettaTheo Consulting Unavailable Gulkana, David Primary Care Unavailable IsckarusImani Attending Unavailable Aleks, David Primary Care Unavailable Gulkana, David Referring Unavailable Shayna PRODUCT SUPPORT ENGINEER, Delmis Attending Unavailable Aleks, David Primary Care Unavailable Gulkana, David Referring Unavailable Keron Ross NP Attending Unavailable Gulkana, David Primary Care Unavailable Gulkana, David Referring Unavailable Isckarus, Imani Attending Unavailable Gulkana, David Primary Care Unavailable Gulkana, David Referring Unavailable Isckarus, Alisonour Attending Unavailable Gulkana, David Primary Care Unavailable Gulkana, David Referring Unavailable Isckarus, Mansour Attending Unavailable Randolphjanessri Nabil Referring Unavailable Gulkana, David Primary Care Unavailable Isckarus, Mansour Attending Unavailable Aleks, David Referring Unavailable Gulkana, David Primary Care Unavailable Theo Richard Attending Unavailable Gulkana, David Primary Care Unavailable Gulkana, David Referring Unavailable Isckarus, Mansour Referring Unavailable Isckarus, Mansour Attending Unavailable Gulkana, David Primary Care Unavailable Isckarus, Mansour Attending Unavailable Isckarus, Mansour Referring Unavailable Gulkana, David Primary Care Unavailable Medications Current Medications Medication Drug Class(es) Dates Sig (Normalized) Sig (Original) acetaminophen 325 mg oral tablet (6 sources) Start: 01-26-2025 End: 02-05-2025 take 2 tablets by mouth every six hours as needed for pain acetaminophen (Tylenol) 325 MG tablet Take 2 tablets (650 mg) by mouth every 6 hours as needed for mild pain (1-3) for up to 10 days. 30 tablet 01/26/2025 5:21 PM EDT 01/26/2025 02/05/2025 Active Start: 01-26-2025 End: 01-27-2025 take 1 tablet by mouth every eight hours 1,000 mg, Oral, Every 8 hours, First dose on Wed01/26/25 at 1400, Phase II/On Unit, Maximum dose of acetaminophen is 4000 mg from all sources in 24 hours. Alternate ibuprofen and acetaminophen every 4 hours. Start: 01-26-2025 End: 01-26-2025 take 1000 mg by mouth once, then take 4000 mg by mouth every twenty-four hours 1,000 mg, Oral, Once, On Wed01/26/25 at 0645, For 1 dose, Preprocedure, Maximum dose of acetaminophen is 4000 mg from all sources in 24 hours. Do not administer if patient has taken tylenol Start: 01-26-2025 End: 01-26-2025 take 1000 mg by mouth once, then take 4000 mg by mouth every twenty-four hours 1,000 mg, Oral, Once, On 3/14/25 at 0645, For 1 dose, Preprocedure, Maximum dose of acetaminophen is 4000 mg from all sources in 24 hours. Do not administer if patient has taken tylenol [id number] 200 actuat albuterol 0.09 mg/actuat metered dose inhaler (12 sources) beta2-Adrenergic Agonist Start: 08-02-2024 take 2 puff(s) by inhalation every six hours as needed Albuterol 108 (90 Base) MCG/ACT Aero Soln inhaler Inhale 2 puffs Every 6 hours as needed. 08/02/2024 Active Start: 08-02-2024 take 2 puff(s) by in halation every six hours as needed for wheezing albuterol HFA (PROVENTIL HFA, VENTOLIN HFA) 90 mcg/actuation inhaler Inhale 2 Puffs as instructed every 6 hours as needed for wheezing/shortness of breath. 8 g 08/02/2024 Active Start: 03-23-2024 End: 08-02-2024 take 2 puff(s) by inhalation every four hours as needed for wheezing albuterol HFA (PROVENTIL HFA, VENTOLIN HFA) 90 mcg/actuation inhaler Indications: Viral bronchitis Inhale 2 Puffs as instructed every 4 hours as needed for wheezing/shortness of breath. 18 g 03/23/2024 08/02/2024 Discontinued (Course of therapy completed) atorvastatin 80 mg oral tablet (20 sources) HMG-CoA Reductase Inhibitor Start: 11-29-2023 take 1 tablet by mouth at bedtime Atorvastatin 80 mg tablet Active 80 mg PO AT BEDTIME November 29, 2023 3:11pm Start: 03-31-2021 End: 02-27-2024 take 1 tablet by mouth at bedtime Atorvastatin 40 mg tablet Discontinued 40 mg PO AT BEDTIME July 11, 2021 10:32am May 28, 2022 8:51am Comment on above: Take 40 mg by mouth once daily. Take 1 tablet by joe once daily. cephalexin 500 mg oral capsule (3 sources) Cephalosporin Antibacterial Start: 12-24-19 End: 12-29-19 take 1 capsule by mouth twice daily cephALEXin (KEFLEX) 500 mg capsule Take 1 capsule by mouth two times a day for 5 days. 10 capsule 12/24/2024 12/29/2024 Active dexamethasone 4 mg oral tablet (2 sources) Corticosteroid Start: 04-05-20 take 2 tablets by mouth twice daily Dexamethasone 4 mg tablet Active 8 mg PO .COMPLEX 72 April 05, 2025 12:00am 8 mg orally; twice daily ONLY the day before, the day of and the day after chemotherapy docusate sodium 100 mg oral capsule (7 sources) Start: 01-27-20 End: 02-26-20 take 1 capsule by mouth twice daily in the evening docusate sodium (Colace) 100 MG capsule Take 1 capsule (100 mg) by mouth 2 times daily. 60 capsule 01/26/2025 5:21 PM EDT 01/26/2025 02/25/2025 Active doxycycline hyclate 100 mg oral tablet (4 sources) Tetracycline-class Drug Start: 08-02-20 End: 08-09-20 take 1 tablet by mouth twice daily doxycycline (VIBRA-TABS) 100 mg tablet Take 1 tablet by mouth two times a day for 7 days. 14 tablet 08/02/2024 08/09/2024 Active Start: 04-18-2024 End: 04-25-2024 take 1 tablet by mouth twice daily doxycycline monohydrate 100 mg tablet Take 1 tablet by mouth two times a day for 7 days. 14 tablet 0 04/18/2024 04/25/2024 Active Start: 04-23-2022 End: 04-30-2022 take 1 capsule by mouth twice daily doxycycline monohydrate (MONODOX) 100 mg capsule Take 1 capsule by mouth twice daily for 7 days. 14 capsule 0 04/23/2022 04/30/2022 Active Comment on above: Take 1 capsule by [facility] twice daily for 7 days. famotidine 20 mg oral tablet (20 sources) Histamine-2 Receptor Antagonist Start: 01-27-20 End: 01-28-20 take 1 tablet by mouth twice daily Famotidine (Pepcid) 20 mg tablet Active 20 mg PO TWICE A DAY November 29, 2023 1:00am Comment on above: [facility] flucon[facility] 150 mg oral tablet (3 sources) Azole Antifungal Start: 02-15-20 End: 02-16-20 take 1 tablet by mouth once daily fluconazole (Diflucan) 150 MG tablet Take 1 tablet (150 mg) by mouth daily for 1 day. 1 tablet 02/14/2025 02/15/2025 Active fluticasone propionate 0.05 mg/actuat metered dose nasal spray (13 sources) Corticosteroid Start: 08-31-20 take 2 spray(s) by mouth once daily fluticasone (FLONASE) 50 mcg/actuation nasal spray Indications: Post-nasal drip Use 2 Sprays in each nostril once daily. Rinse mouth after use. 1 Each 5 08/31/2023 Active Comment on above: Use 2 Sprays in each nostril once daily. Rinse mouth after use. Inhalational Spacing Device (3 sources) Start: 08-02-20 End: 08-02-20 Inhalational Spacing Device 1 Device one time only for 1 dose. 1 Each 08/02/2024 08/02/2024 Active Start: 03-23-2024 End: 03-23-2024 Inhalational Spacing Device 1 Device one time only for 1 dose. 1 Each 0 03/23/2024 03/23/2024 Active Lidocaine / Prilocaine (3 sources) Antiarrhythmic, Amide Local Anesthetic Start: 04-04-2025 Lidocaine-Prilocaine 2.5-2.5 % cream Active 1 NMA TOPICAL ONCE as needed for port access April 04, 2025 12:00am Multivitamins chew (20 sources) Multivitamins ch ew Take by mouth. With iron Active Multivitamins ch ew Take by mouth. With iron 0 Active Comment on above: Take by mouth. With iron nystatin 671001 unt/ml topical cream (5 sources) Polyene Antifungal Start: 02-14-2025 End: 02-14-2026 nystatin [id number] UNIT/GM Cream Apply topically Twice daily. 02/14/2025 02/14/2026 Active Start: 02-14-2025 End: 02-14-2026 nystatin (Mycostatin) cream Apply topically 2 times daily. 30 g 3 02/14/2025 02/14/2026 Active ondansetron 8 mg disintegrating oral tablet (11 sources) Serotonin-3 Receptor Antagonist Start: 04-04-2025 take 1 tablet by mouth every eight hours as needed for nausea and vomiting Ondansetron 8 mg tablet,disintegrating Active 8 mg PO Q8H as needed for nausea and vomiting April 04, 2025 12:00am Start: 01-09-2025 take 1 tablet by joe th three times daily as needed for nausea Ondansetron 4 MG Tab Dispersible tablet Take 1 tablet by mouth 3 times daily as needed for Nausea. 01/09/2025 Active Start: 01-08-2025 End: 03-26-2025 take 1 tablet by mouth every eight hours as needed for nausea Ondansetron 4 mg tablet,disintegrating Discontinued 4 mg PO EVERY 8 HOURS NEEDED as needed for Nausea January 08, 2025 1:00am March 26, 2025 1:35pm oxyCODONE hydrochloride 5 mg oral tablet (14 sources) Opioid Agonist Start: 01-26-2025 End: 01-31-2025 take 1 tablet by mouth every six hours as needed for pain oxyCODONE (Roxicodone) 5 MG immediate release tablet Take 1 tablet (5 mg) by mouth every 6 hours as needed for severe pain (7-10) for up to 5 days. 20 tablet 01/26/2025 01/31/2025 Active Start: 01-26-2025 End: 01-27-2025 take 1 tablet by mouth every four hours as needed for pain oxyCODONE (Roxicodone) immediate release tablet 5 mg Start: 05-29-2022 End: 12-08-2022 take 1 tablet by mouth every six hours as needed for pain Oxycodone 5 mg tablet Discontinued 5 mg PO EVERY 6 HOURS NEEDED as needed for severe pain 03 04May 29, 2022 December 08, 2022 4:19pm polyethylene glycol 3350 389388 mg / potassium chloride 2980 mg / sodium bicarbonate 6720 mg / sodium chloride 5840 mg / sodium sulfate 76977 mg powder for oral solution (1 source) Osmotic Laxative Start: 10-13-2022 End: 10-13-2022 peg 3350-electrolytes (COLYTE) 240-22.72-6.72 -5.84 gram solution Take 4,000 mL by mouth one time only for 1 dose. 1 Each 0 10/13/2022 10/13/2022 Active Comment on above: Take 4,000 mL by joe th one time only for 1 dose. predniSONE 10 mg oral tablet (8 sources) Start: 08-02-2024 End: 08-07-2024 take 4 tablets by mouth once daily predniSONE (DELTASONE) 10 mg tablet Take 4 tablets by mouth once daily for 5 days. 20 tablet 08/02/2024 08/07/2024 Active Start: 03-23-2024 End: 03-27-2024 take 2 tablets by mouth once daily at mealtime predniSONE (DELTASONE) 20 mg tablet Indications: Viral bronchitis Take 2 tablets by mouth once daily for 4 days. Take daily with food. 8 tablet 0 03/23/2024 03/27/2024 Active Start: 02-16-2023 take 2 tablets by mo ut once daily predniSONE (DELTASONE) 20 mg tablet Indications: COVID-19 Take 2 tablets by mouth once daily. 10 tablet 0 02/16/2023 Active Start: 04-23-2022 End: 05-05-2022 predniSONE (DELTASONE) 10 mg tablet Take 6 tabs for 3 days, then 4 tabs for 3 days, then 2 tabs for 3 days then 1 tab for 3 days with food. 39 tablet 0 04/23/2022 05/05/2022 Active Comment on above: Take 6 tabs for 3 da ys, then 4 tabs for 3 days, then 2 tabs for 3 days then 1 tab for 3 days with food. Take 2 tablets by mo [facility] once daily. prochlorperazine 10 mg oral tablet (3 sources) Phenothiazine Start: 2024 take 1 tablet by mouth every six hours as needed for nausea and vomiting Prochlorperazine Maleate 10 mg tablet Active 10 mg PO EVERY 6 HOURS as needed for nausea and vomiting April 04, 2025 12:00am sertraline 50 mg oral tablet (20 sources) Serotonin Reuptake Inhibitor Start: 2022 End: 2024 take 1 tablet by mouth at bedtime Sertraline (Zoloft) 50 mg tablet Active 50 mg PO AT BEDTIME November 29, 2023 1:00am Start: 01-26-2023 take 0.5 tablet by m outh once daily, then take 1 tablet by mouth once daily sertraline (ZOLOFT) 50 mg tablet Indications: Adjustment disorder with anxious mood Take 1/2 tab once a day orally for one week then 1 tab once a day 30 tablet 5 01/26/2023 Active Comment on above: Take 1/2 tab once a day orally for one week then 1 tab once a day Take 1 tablet by joe once daily. simethicone 80 mg chewable tablet (4 sources) Start: 01-26-2025 End: 02-10-2025 take 1 tablet by mouth every six hours as needed simethicone (Mylicon) 80 MG chewable tablet Chew 1 tablet (80 mg) every 6 hours as needed for flatulence for up to 10 days. 60 tablet 01/26/2025 5:21 PM EDT 01/26/2025 02/10/2025 Active Completed/Discontinued Medications Medication Drug Class(es) Dates Sig (Normalized) Sig (Original) acetaminophen 325 mg / oxyCODONE hydrochloride 5 mg oral tablet (7 sources) Opioid Agonist Start: 01-08-2025 End: 03-26-2025 Oxycodone-Acetamin ophen (Percocet) 5-325 mg tablet Discontinued 1 {tbl} PO Q8H as needed for pain 10 January 08, 2025 March 26, 2025 1:35pm aspirin 81 mg delayed release oral tablet (20 sources) Platelet Aggregation Inhibitor, Nonsteroidal Anti-inflammatory Drug Start: 01-27-2025 End: 01-27-2025 Start: 06-09-2019 take 1 tablet by [facility] once daily Aspirin 81 MG tablet,chewable Active 81 mg PO DAILY@0800 June 09, 2019 12:00am Comment on above: Take 81 mg by mouth once daily. calcium chloride 0.0014 meq/ml / potassium chloride 0.004 meq/ml / sodium chloride 0.103 meq/ml / sodium lactate 0.028 meq/ml injectable solution (4 sources) Start: 2024 End: 2024 take 100 mL intravenously every hour 100 mL/hr, IntraVENous, Continuous, Starting on Wed01/26/25 at 1030, For 6 hours ceFAZolin 2000 mg injection (2 sources) Cephalosporin Antibacterial Start: 2024 End: 2024 take 2000 mg intravenously every eight hours 2,000 mg, IntraVENous, Administer over 30 Minutes, Every 8 hours, First dose on Wed01/26/25 at 1630, For 2 doses, premix bag, Suspected Indication (Select all that apply): Surgical Prophylaxis clopidogrel 75 mg oral tablet (20 sources) [id number] Platelet Inhibitor Start: 2020 End: 2024 take 1 tablet by mouth once daily Clopidogrel (Plavix) 75 mg tablet Discontinued 75 mg PO DAILY June 15, 2023 8:59pm March 22, 2025 5:42pm Comment on above: Take 75 mg by mouth once daily. 1 ml HYDROmorphone hydrochloride 1 mg/ml cartridge (2 sources) Opioid Agonist Start: 2024 End: 2024 0.5 mg, IntraVENous, Every 5 min PRN, severe pain (7-10), Starting on Wed01/26/25 at 1020, For 4 doses, Recovery (only), Phase I and Phase II- Initial therapy for severe pain (7-10). Restricted to a 90 minute time frame starting when the patient can verbally state their pain score. If after 2 doses the pain score does not decrease by more than one point, then call the provider. If oral meds are utilized, do not return to initial therapy medications. 1 ml ketorolac tromethamine 30 mg/ml cartridge (2 sources) Nonsteroidal Anti-inflammatory Drug, Cyclooxygenase Inhibitor Start: 2024 End: 2024 take 30 mg intravenously every six hours 30 mg, IntraVENous, Every 6 hours, First dose on Wed01/26/25 at 1600, For 2 doses, Phase II/On Unit, Discontinue when able to take PO ibuprofen. losartan potassium 25 mg oral tablet (20 sources) Angiotensin 2 Receptor Eric Start: 2020 End: 2024 take 1 tablet by mouth once daily Losartan 25 mg tablet Discontinued 25 mg PO DAILY June 15, 2023 9:00pm March 26, 2025 1:35pm Comment on above: Take 25 mg by mouth once daily. metoprolol tartrate 25 mg oral tablet (20 sources) beta-Adrenergic Eric Start: 2020 End: 2024 take 1 tablet by mouth twice daily Metoprolol Tartrate 25 mg tablet Discontinued 25 mg PO TWICE A DAY February 24, 2023 4:38pm March 26, 2025 1:35pm Comment on above: Take 25 mg by mouth twice daily. 1 ml naloxone hydrochloride 0.4 mg/ml injection (2 sources) Opioid Antagonist Start: 2024 End: 2024 0.4 mg, IntraVENous, Every 5 min PRN, opioid reversal, respiratory depression, Starting on Wed01/26/25 at 1207, +++ For RR norethindrone acetate 5 mg oral tablet (20 sources) Start: 2021 End: 2021 take 1 mg by mouth twice daily Norethindrone Acetate 5 mg tablet Discontinued 1 mg PO TWICE A DAY May 28, 2022 12:00am May 29, 2022 9:57am Start: 05-28-2022 End: 05-29-2022 take 1 mg by mouth twice daily Norethindrone Acetate Discontinued 1 MG PO TWICE A DAY May 27, 2022 11:00pm May 29, 2022 8:57am Start: 01-19-2022 End: 05-04-2022 take 1 tablet by mouth three times daily norethindrone (AYGESTIN) 5 mg tablet Take 1 tablet by mouth three times daily. 30 tablet 1 03/23/2022 05/04/2022 Discontinued Comment on above: Take 1 tablet by joe three times daily. ondansetron ODT (Zofran-ODT) disintegrating tablet 4 mg (2 sources) Start: End: take 1 tablet by mouth every eight hours as needed for nausea and vomiting ondansetron ODT (Zofran-ODT) disintegrating tablet 4 mg polyethylene glycol 3350 14816 mg powder for oral solution (2 sources) Osmotic Laxative Start: End: take 17 g by mouth every twenty-four hours as needed for constipation 5 ml sodium chloride 9 mg/ml injection (6 sources) Start: End: 10 mL, IntraVENous, Every 12 hours scheduled (2 times per day), First dose on Wed01/26/25 at 2100, Phase II/On Unit Start: 01-26-2025 End: 01-27-2025 Start: 01-26-2025 End: 01-27-2025 sulfamethoxazole 800 mg / trimethoprim 160 mg oral tablet (7 sources) Dihydrofolate Reductase Inhibitor Antibacterial, Sulfonamide Antimicrobial Start: 01-08-2025 End: 03-26-2025 Sulfamethoxazole-Trimethopri m (Bactrim Ds) 800-160 mg tablet Discontinued 1 {tbl} PO TWICE A DAY 03 09January 08, 2025 1:00am March 26, 2025 1:35pm Surgical Lubricant Jelly gel (13 sources) Start: 09-25-2021 End: 06-29-2022 Surgical Lubricant Jelly gel For MRI Female Pelvis, MRI department to provide. Administer intra-vaginal Surgilube immediately prior the MRI procedure (total amount to patient toleranace). 3 g 09/25/2021 06/29/2022 Discontinued (Other) Start: 09-25-2021 Surgical Lubri cant Jelly gel For MRI Female Pelvis, MRI department to provide. Administer intra-vaginal Surgilube immediately prior the MRI procedure (total amount to patient toleranace). 3 g 0 09/25/2021 Active Comment on above: For MRI Female Pelvi s, MRI department to provide. Administer intra-vaginal Surgilube immediately prior the MRI procedure (total amount to patient toleranace). ticagrelor 90 mg oral tablet (20 sources) Start: 1 End: 1 take 1 tablet by mouth twice daily Ticagrelor (Brilinta) 90 mg tablet Discontinued 90 mg PO TWICE A DAY April 01, 2021 12:00am May 02, 2021 2:10pm varenicline 1 mg oral tablet (12 sources) Partial Cholinergic Nicotinic Agonist Start: 2 End: 3 take 1 tablet by mouth twice daily varenicline (CHANTIX) 1 mg tablet Indications: Tobacco use Take 1 tablet by mouth twice daily. After starter pack. 60 tablet 1 08/26/2022 01/26/2023 Discontinued Start: 07-27-2022 End: 01-26-2023 take 0.5 tablet by mouth once daily, then take 0.5 tablet by mouth twice daily, then take 1 tablet by mouth twice daily varenicline (CHANTIX) 1 mg tablet Indications: Tobacco use Take 0.5 tablets by mouth once daily for 3 days, THEN 0.5 tablets twice daily for 4 days, THEN 1 tablet twice daily for 23 days. 52 tablet 0 07/27/2022 01/26/2023 Discontinued Comment on above: Take 0.5 tablets by mouth once daily for 3 days, THEN 0.5 tablets twice daily for 4 days, THEN 1 tablet twice daily for 23 days. Take 1 tablet by joe th twice daily. After starter pack. Problems Active Problems Problem Classification Problem Date Documented Da te Episodic/Chronic Acute bronchitis (1 source) Viral bronchitis; Translations: [Acute bronchitis due to other specified organisms] 03-23-2024 Episodic Adjustment disorders (2 sources) Adjustment disorder with anxious mood; Translations: [Adjustment disorder with anxiety] Chronic Administrative/social admission (1 source) Counseling, unspecified; Translations: [Counseling, unspecified] Onset: Episodic Benign neoplasm of uterus (7 sources) Uterine leiomyoma; Translations: [Leiomyoma of uterus, unspecified] Episodic Calculus of urinary tract (7 sources) Kidney stone; Translations: [Calculus of kidney] Onset: 5 03-28-2025 Episodic Comment on above: NO SURGERY Cancer of bone and connective tissue (20 sources) 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; 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] Onset: 5 03-28-2025 Chronic Comment on above: 2024 Chronic obstructive pulmonary disease and bronchiectasis (1 source) Bronchitis; Translations: [Bronchitis, not specified as acute or chronic] 08-02-2024 Episodic Conditions associated with dizziness or vertigo (20 sources) Dizziness; Translations: [Dizziness and giddiness] Onset: 3 11-30-2022 Episodic Coronary atherosclerosis and other heart disease (20 sources) History of non-ST segment elevation myocardial infarction; Translations: [Old myocardial infarction] Onset: 4 Resolved: 5 Chronic Comment on above: X2 Coronary atherosclerosis and other heart disease (2 sources) Presence of coronary angioplasty implant and graft; Translations: [Percutaneous transluminal coronary angioplasty status] Onset: 1 12-08-2022 Episodic Deficiency and other anemia (3 sources) Iron deficiency anemia due to blood loss; Translations: [Iron deficiency anemia secondary to blood loss (chronic)] Chronic Deficiency and other anemia (2 sources) Anemia due to chronic blood loss; Translations: [Iron deficiency anemia secondary to blood loss (chronic)] Chronic Deficiency and other anemia (2 sources) Iron deficiency anemia secondary to blood loss (chronic); Translations: [Iron deficiency anemia secondary to blood loss (chronic)] Chronic Deficiency and other anemia (11 sources) Microcytic hypochromic anemia; Translations: [Iron deficiency anemia, unspecified] 06-10-2019 Episodic Disorders of lipid metabolism (20 sources) Hyperlipidemia; Translations: [Hyperlipidemia, unspecified] Onset: 2 Resolved: 5 Chronic Comment on above: ON MED E Codes: Adverse effects of medical drugs (1 source) Adverse effect of antineoplastic and immunosuppressive drugs, initial encounter; Translations: [Adverse effect of antineoplastic and immunosuppressive drugs, initial encounter] Onset: 5 Episodic Esophageal disorders (2 sources) Gastroesophageal reflux disease without esophagitis; Translations: [Gastro-esophageal reflux disease without esophagitis] Chronic Essential hypertension (15 sources) Essential hypertension; Translations: [Essential (primary) hypertension] Onset: 5 05-21-2022 Chronic Comment on above: controlled on meds LAST ON MEDS 01/2025 Gastritis and duodenitis (11 sources) Gastritis; Translations: [Gastritis, unspecified, without bleeding] 06-10-2019 Episodic Gastrointestinal hemorrhage (1 source) Hematochezia; Translations: [Melena] Episodic Genitourinary symptoms and ill-defined conditions (8 sources) Scalding pain on urination ; Translations: [Dysuria] 12-24-2024 Episodic Heart valve disorders (20 sources) Heart murmur; Translations: [Cardiac murmur, unspecified] Onset: 2 Resolved: 5 12-04-2022 Episodic Menstrual disorders (20 sources) Menometrorrhagia; Translations: [Excessive and frequent menstruation with irregular cycle] Onset: 3 Chronic Mycoses (1 source) Candidiasis of skin; Translations: [Candidiasis of skin and nail] 02-14-2025 Episodic Nausea and vomiting (1 source) Nausea with vomiting, unspecified; Translations: [Nausea with vomiting, unspecified] Onset: 5 Episodic Nonspecific chest pain (20 sources) Chest pain; Translations: [Chest pain, unspecified] 04-09-2021 Episodic Other aftercare (2 sources) Surgical follow-up; Translations: [Encounter for follow-up examination after completed treatment for conditions other than malignant neoplasm] Episodic Other aftercare (1 source) Other long-term (current) drug therapy; Translations: [Other long-term (current) drug therapy] Onset: 5 Episodic Other aftercare (1 source) Encounter for adjustment and management of vascular access device; Translations: [Encounter for adjustment and management of vascular access device] Onset: 5 Episodic Other connective tissue disease (2 sources) Triggering of digit; Translations: [Trigger finger, right little finger] Episodic Other eye disorders (1 source) Red eye; Translations: [Other specified disorders of eye and adnexa] 03-23-2024 Episodic Other gastrointestinal disorders (20 sources) Pelvic mass; Translations: [Intra-abdominal and pelvic swelling, mass and lump, unspecified site] Onset: 5 Resolved: 5 01-17-2025 Episodic Other gastrointestinal disorders (3 sources) Finding of abdominopelvic segment of trunk; Translations: [Intra-abdominal and pelvic swelling, mass and lump, unspecified site] Onset: 5 01-26-2025 Episodic Other hematologic conditions (20 sources) History of anemia; Translations: [Personal history of diseases of the blood and blood-forming organs and certain disorders involving the immune mechanism] Onset: 3 11-30-2022 Episodic Other lower respiratory disease (7 sources) Cough; Translations: [Cough] Episodic Other nervous system disorders (10 sources) Postoperative pain ; Translations: [Other acute postprocedural pain] 12-04-2022 Episodic Other nervous system disorders (1 source) Numbness; Translations: [Anesthesia of skin] Episodic Other non-traumatic joint disorders (2 sources) Pain in elbow; Translations: [Pain in right elbow] Episodic Other nutritional; endocrine; and metabolic disorders (20 sources) Obese class I; Translations: [Obesity, unspecified] Onset: 2 06-29-2022 Chronic Other screening for suspected conditions (not mental disorders or infectious disease) (20 sources) Patient encounter status; Translations: [Encounter for screening mammogram for malignant neoplasm of breast] Onset: 4 09-17-2023 Episodic Other skin disorders (1 source) Mass of neck; Translations: [Localized swelling, mass and lump, neck] Episodic Other upper respiratory infections (1 source) Chronic sinusitis, unspecified; Translations: [Unspecified sinusitis (chronic)] 04-18-2024 Chronic Other upper respiratory infections (2 sources) Acute upper respiratory infection; Translations: [Acute upper respiratory infection, unspecified] Episodic Residual codes; unclassified (1 source) Tobacco use and exposure - finding; Translations: [Tobacco use] Episodic Residual codes; unclassified (4 sources) Tobacco user; Translations: [Tobacco use] 04-18-2025 Episodic Residual codes; unclassified (1 source) Tobacco use; Translations: [Tobacco use] Onset: Episodic Secondary malignancies (1 source) Secondary malignant neoplasm of peritoneum; 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] 04-03-2025 Chronic Substance-related disorders (11 sources) Nicotine dependence; Translations: [Nicotine dependence, unspecified, uncomplicated] 05-02-2021 Chronic Unclassified (1 source) Acute cough; Translations: [Acute cough] Onset: 4 Unclassified (2 sources) Post-op Visit; Translations: [Post-op Visit] Onset: 5 Unclassified (18 sources) Primary leiomyosarcoma of pelvis; 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 - 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] Unclassified (6 sources) C49.5 - 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,N20.0 - Calculus of kidney Unclassified (1 source) No additional problems on file Unclassified (2 sources) New Patient; Translations: [New Patient] Onset: 5 Urinary tract infections (7 sources) Pyelonephritis; Translations: [Tubulo-interstitial nephritis, not specified as acute or chronic] 01-16-2025 Episodic Viral infection (1 source) Disease caused by 2019-nCoV; Translations: [COVID-19] Episodic Past or Other Problems Problem Classification Problem Date Documented Da te Episodic/Chronic Diabetes mellitus without complication (20 sources) Hyperglycemia; Translations: [Hyperglycemia, unspecified] Onset: 07-28-2022 Resolved: 03-13-2025 Episodic Mood disorders (1 source) Mood disorders Onset: 03-21-2025 03-21-2025 Other female genital disorders (1 source) Unspecified condition associated with female genital organs and menstrual cycle; Translations: [Unspecified condition associated with female genital organs and menstrual cycle] Onset: 01-16-2025 Episodic Other gastrointestinal disorders (2 sources) Intra-abdominal and pelvic swelling, mass and lump, unspecified site; Translations: [Intra-abdominal and pelvic swelling, mass and lump, unspecified site] Onset: 01-26-2025 Episodic Results Test Name Value Interpretation Reference Range Facility Absolute lymphocyte countOrd ered [facility] Lymphocytes Auto (Unsp spec) [#/Vol] 1.16 10*3/uL 0.83-4.51 [facility] Absolute neutrophil countOrd ered By: [facility] Cori on 04-26-2025 Neutrophils (Bld) [#/Vol] 3.5 10*3/uL 2.0-7.7 [facility] Anion gap in Serum or Plasma [facility]: [facility] on 04-26-2025 Anion gap [Moles/Vol] 13 mmol/L 5-15 [facility] Automated lymphocyte count a s percentage of total leukocytesOrdered By: [facility] Cori on 04-26-2025 Lymphocytes/100 WBC Auto (Unsp spec) 24.1 % -41 [facility] BUN/creatinine ratioOrdered By: [facility] on 04-26-2025 Urea nitrogen/Creatinine [Mass ratio] 15.3 mg/mg 10-20 [facility] Basophil percentageOrdered B y: [facility] Cori on 04-26-2025 Basophils/100 WBC (Bld) 0.2 % 0-1 [facility] Bilirubin, totalOrdered By: [facility] on 04-26-2025 Bilirubin [Mass/Vol] 0.30 mg/dL 0.00-1.30 [facility] CBC W/Diff, Automatedon 04-15 Absolute Lymph 1.16 X10 3/uL Normal 0.83-4.51 [facility] Comment on above: Performed By: #### L 501.5200, L500.4050, L100.0100 ####[facility] [address] [place], [address] Absolute Neut 3.5 X10 3/uL Normal 2.0-7.7 [facility] Comment on above: Performed By: #### L 501.5200, L500.4050, L100.0100 ####[facility] [address] [place], [address] Basophils/100 WBC (Bld) 0.2 % Normal 0-1 [facility] Comment on above: Performed By: #### L 501.5200, L500.4050, L100.0100 ####[facility] [address] [place], [address] Eosinophils/100 WBC (Bld) 0.2 % Normal 0-5 [facility] Comment on above: Performed By: #### L 501.5200, L500.4050, L100.0100 ####[facility] [address] [place], [address] Erythrocyte distribution width (RBC) [Ratio] 12.8 % Normal 11.6-14.6 [facility] Comment on above: Performed By: #### L 501.5200, L500.4050, L100.0100 ####[facility] [address] [place], [address] Hematocrit (Bld) [Volume fraction] 38.3 % Normal 37-47 [facility] Comment on above: Performed By: #### L 501.5200, L500.4050, L100.0100 ####[facility] [address] [place], [address] Hemoglobin (Bld) [Mass/Vol] 13.4 g/dL Normal 12.0-15.0 [facility] Comment on above: Performed By: #### L 501.5200, L500.4050, L100.0100 ####[facility] [address] [place], [address] IG% 0.200 Normal 0.0-0.9 [facility] Comment on above: Result Comment: IG% - Immature Granulocytes (promyelocytes, myelocytes and metamyelocytes) > 1% indicates that a LEFT SHIFT is Present. Performed By: #### L 501.5200, L500.4050, L100.0100 ####[facility] [address] [place], [address] Lymphocytes/100 WBC (Bld) 24.1 % Normal 19-41 [facility] Comment on above: Performed By: #### L 501.5200, L500.4050, L100.0100 ####[facility] [address] [place], [address] MCH (RBC) [Entitic mass] 29.4 pg Normal 27.0-32.0 [facility] Comment on above: Performed By: #### L 501.5200, L500.4050, L100.0100 ####[facility] [address] [place], [address] MCHC (RBC) [Mass/Vol] 35.0 g/dL Normal 32-36 [facility] Comment on above: Performed By: #### L 501.5200, L500.4050, L100.0100 ####[facility] [address] [place], [address] MCV (RBC) [Entitic vol] 84.0 fL Normal 81-99 [facility] Comment on above: Performed By: #### L 501.5200, L500.4050, L100.0100 ####[facility] [address] [place], [address] Monocytes/100 WBC (Bld) 2.5 % Normal 0-10 [facility] Comment on above: Performed By: #### L 501.5200, L500.4050, L100.0100 ####[facility] [address] [place], [address] Neutrophils/100 WBC (Bld) 72.8 % High 47-70 [facility] Comment on above: Performed By: #### L 501.5200, L500.4050, L100.0100 ####[facility] [address] [place], [address] Nucleated RBC (Bld) [#/Vol] 0 10*3/uL Normal 0-5 [facility] Comment on above: Performed By: #### L 501.5200, L500.4050, L100.0100 ####[facility] [address] [place], [address] Platelet mean volume (Bld) [Entitic vol] 10.0 fL Normal 6.2-12.0 [facility] Comment on above: Performed By: #### L 501.5200, L500.4050, L100.0100 ####[facility] [address] [place], [address] Platelets (Bld) [#/Vol] 126 10*3/uL Low 150-450 [facility] Comment on above: Performed By: #### L 501.5200, L500.4050, L100.0100 ####[facility] [address] [place], [address] RBC (Bld) [#/Vol] 4.56 10*6/uL Normal 4.2-5.4 [facility] Comment on above: Performed By: #### L 501.5200, L500.4050, L100.0100 ####[facility] [address] [place], [address] RDW SD 39.1 fl Normal 35.1-43.9 [facility] Comment on above: Performed By: #### L 501.5200, L500.4050, L100.0100 ####[facility] [address] [place], [address] WBC (Bld) [#/Vol] 4.8 10*3/uL Normal 4.4-11.0 [facility] Comment on above: Performed By: #### L 501.5200, L500.4050, L100.0100 ####[facility] [address] [place], [address] Absolute Neut Normal 2.0-7.7 [facility] Comment on above: Result Comment: DUPL ICATE TEST Performed By: #### L 501.2300, L100.0100 #### [facility] [address] [place], [address] HCT Normal 37-47 [facility] Comment on above: Result Comment: DUPL ICATE TEST Performed By: #### L 501.2300, L100.0100 #### [facility] [address] [place], [address] HGB Normal 12.0-15.0 [facility] Comment on above: Result Comment: DUPL ICATE TEST Performed By: #### L 501.2300, L100.0100 #### [facility] [address] [place], [address] MCH Normal 27.0-32.0 [facility] Comment on above: Result Comment: DUPL ICATE TEST Performed By: #### L 501.2300, L100.0100 #### [facility] [address] [place], [address] MCHC Normal 32-36 [facility] Comment on above: Result Comment: DUPL ICATE TEST Performed By: #### L 501.2300, L100.0100 #### [facility] [address] [place], [address] MCV Normal 81-99 [facility] Comment on above: Result Comment: DUPL ICATE TEST Performed By: #### L 501.2300, L100.0100 #### [facility] [address] [place], [address] NEUT% Normal 47-70 [facility] Comment on above: Result Comment: DUPL ICATE TEST Performed By: #### L 501.2300, L100.0100 #### [facility] [address] [place], [address] PLT Normal 150-450 [facility] Comment on above: Result Comment: DUPL ICATE TEST Performed By: #### L 501.2300, L100.0100 #### [facility] [address] [place], [address] RBC Normal 4.2-5.4 [facility] Comment on above: Result Comment: DUPL ICATE TEST Performed By: #### L 501.2300, L100.0100 #### [facility] [address] [place], [address] RDW CV Normal 11.6-14.6 [facility] Comment on above: Result Comment: DUPL ICATE TEST Performed By: #### L 501.2300, L100.0100 #### [facility] [address] [place], [address] RDW SD Normal 35.1-43.9 [facility] Comment on above: Result Comment: DUPL ICATE TEST Performed By: #### L 501.2300, L100.0100 #### [facility] [address] [place], [address] WBC Normal 4.4-11.0 [facility] Comment on above: Result Comment: DUPL ICATE TEST Performed By: #### L 501.2300, L100.0100 #### [facility] [address] [place], [address] Carbon dioxide, total [Moles /volume] in Central venous bloodOrdered By: Imani Persadu on 04-26-2025 CO2 [Moles/Vol] 20.2 mmol/L Low 21.0-32.0 [facility] Chloride assayOrdered By: Jonatan Persaud on 04-26-2025 Chloride [Moles/Vol] 104 mmol/L 98-108 [facility] Comprehensive Metabolic Prof ilon 04-26-2025 Albumin [Mass/Vol] 3.9 g/dL Normal 3.5-5.0 [facility] Comment on above: Performed By: #### L 501.5200, L500.4050, L100.0100 ####[facility] [address] [place], [address] Albumin/Globulin [Mass ratio] 1.1 {ratio} Normal 0.9-2.4 [facility] Comment on above: Performed By: #### L 501.5200, L500.4050, L100.0100 ####[facility] [address] [place], [address] ALK PHOS 108 U/L High 35-104 [facility] Comment on above: Performed By: #### L 501.5200, L500.4050, L100.0100 ####[facility] [address] [place], [address] ALT [Catalytic activity/Vol] 14 U/L Normal <=34 [facility] Comment on above: Performed By: #### L 501.5200, L500.4050, L100.0100 ####[facility] [address] [place], [address] AST [Catalytic activity/Vol] 13 U/L Normal <=31 [facility] Comment on above: Performed By: #### L 501.5200, L500.4050, L100.0100 ####[facility] [address] [place], [address] Bilirubin [Mass/Vol] 0.30 mg/dL Normal 0.00-1.30 [facility] Comment on above: Performed By: #### L 501.5200, L500.4050, L100.0100 ####[facility] [address] [place], [address] BUN/CRE 15.3 RATIO Normal 10-20 [facility] Comment on above: Performed By: #### L 501.5200, L500.4050, L100.0100 ####[facility] [address] [place], [address] Calcium [Mass/Vol] 9.8 mg/dL Normal 7.6-11.0 [facility] Comment on above: Performed By: #### L 501.5200, L500.4050, L100.0100 ####[facility] [address] [place], [address] Chloride [Moles/Vol] 104 mmol/L Normal 98-108 [facility] Comment on above: Performed By: #### L 501.5200, L500.4050, L100.0100 ####[facility] [address] [place], [address] CO2 [Moles/Vol] 20.2 mmol/L Low 21.0-32.0 [facility] Comment on above: Performed By: #### L 501.5200, L500.4050, L100.0100 ####[facility] [address] [place], [address] Creatinine [Mass/Vol] 0.57 mg/dL Low 0.70-1.20 [facility] Comment on above: Performed By: #### L 501.5200, L500.4050, L100.0100 ####[facility] [address] [place], [address] ECRCL 137.98 ml/min Normal 50-250 [facility] Comment on above: Performed By: #### L 501.5200, L500.4050, L100.0100 ####[facility] [address] [place], [address] GAP 13 Normal 5-15 [facility] Comment on above: Performed By: #### L 501.5200, L500.4050, L100.0100 ####[facility] [address] [place], [address] GFR/1.73 sq M.predicted among non-blacks MDRD (S/P/Bld) [Vol rate/Area] 108 mL/min/{1.73_m2} Normal >60 [facility] Comment on above: Result Comment: mL/m in/1.73m2 CKD-EPI Creatinine Equation (2020) Performed By: #### L 501.5200, L500.4050, L100.0100 ####[facility] [address] [place], [address] Globulin (S) [Mass/Vol] 3.4 g/dL Normal 2.2-4.2 [facility] Comment on above: Performed By: #### L 501.5200, L500.4050, L100.0100 ####[facility] [address] [place], [address] Glucose [Mass/Vol] 209 mg/dL High 70-99 [facility] Comment on above: Performed By: #### L 501.5200, L500.4050, L100.0100 ####[facility] [address] [place], [address] Potassium [Moles/Vol] 3.8 mmol/L Normal 3.3-5.1 [facility] Comment on above: Performed By: #### L 501.5200, L500.4050, L100.0100 ####[facility] [address] [place], [address] Sodium [Moles/Vol] 136 mmol/L Normal 133-145 [facility] Comment on above: Performed By: #### L 501.5200, L500.4050, L100.0100 ####[facility] [address] [place], [address] T PROT 7.3 g/dL Normal 5.9-8.4 [facility] Comment on above: Performed By: #### L 501.5200, L500.4050, L100.0100 ####[facility] [address] [place], [address] Urea nitrogen [Mass/Vol] 9 mg/dL Normal 4-19 [facility] Comment on above: Performed By: #### L 501.5200, L500.4050, L100.0100 ####[facility] [address] [place], [address] Eosinophil percentageOrdered By: Imani Persaud on 04-26-2025 Eosinophils/100 WBC (Bld) 0.2 % 0-5 [facility] Erythrocyte distribution wid th ratioOrdered By: [facility] Cori on 04-26-2025 Erythrocyte distribution width (RBC) [Ratio] 12.8 % 11.6-14.6 [facility] Erythrocyte distribution wid th standard deviationOrdered By: [facility] on 04-26-2025 Erythrocyte distribution width (RBC) [Ratio] 39.1 fl 35.1-43.9 [facility] Glomerular filtration rate ( GFR) estimation/1.73 sq m using serum, plasma, or whole bOrdered By: Imani Persaud on 04-26-2025 GFR/1.73 sq M.predicted among non-blacks MDRD (S/P/Bld) [Vol rate/Area] 108 mL/min/{1.73_m2} >60 [facility] Comment on above: mL/min/1.73m2 CKD-EP I Creatinine Equation (2020) Hematocrit Auto (Bld) [Volum e fraction]Ordered By: Imani Persaud on 04-26-2025 Hematocrit (Bld) [Volume fraction] 38.3 % 37-47 [facility] Hemoglobin measurementOrdere d By: Imani Persaud on 04-26-2025 Hemoglobin (Bld) [Mass/Vol] 13.4 g/dL 12.0-15.0 [facility] Immature granulocytes/100 WB C Auto (Bld)Ordered By: Imani Persaud on 04-26-2025 Immature granulocytes/100 WBC (Bld) 0.200 % 0.0-0.9 [facility] Comment on above: IG% - Immature Granu locytes (promyelocytes, myelocytes and metamyelocytes) > 1% indicates that a LEFT SHIFT is Present. Laboratory - Chemistry and C hemistry - challengeOrdered By: [facility] on 04-26-2025 AST [Catalytic activity/Vol] 13 U/L <32 [facility] MCV (mean corpuscular volume ) determinationOrdered By: [facility] on 04-26-2025 MCV (RBC) [Entitic vol] 84.0 fL 81-99 [facility] Magnesiumon 04-26-2025 Magnesium [Mass/Vol] 2.0 mg/dL Normal 1.5-2.2 [facility] Comment on above: Performed By: #### L 501.5200, L500.4050, L100.0100 ####[facility] [address] [place], [address] Magnesium measurement (mass/ volume)Ordered By: [facility] on 04-26-2025 Magnesium (Unsp spec) [Mass/Vol] 2.0 mg/dL 1.5-2.2 [facility] Mean corpuscular hemoglobin (MCH) determinationOrdered By: [facility] on 04-26-2025 MCH (RBC) [Entitic mass] 29.4 pg 27.0-32.0 [facility] Mean corpuscular hemoglobin concentration (MCHC) determinationOrdered By: [facility] on 04-26-2025 MCHC (RBC) [Mass/Vol] 35.0 g/dL 32-36 [facility] Mean platelet volume determi nationOrdered By: Imani Persaud on 04-26-2025 Platelet mean volume (Bld) [Entitic vol] 10.0 fL 6.2-12.0 [facility] Monocyte percentageOrdered B y: Imani Persaud on 04-26-2025 Monocytes/100 WBC (Bld) 2.5 % 0-10 [facility] Neutrophil percentageOrdered By: Imani Persaud on 04-26-2025 Neutrophils/100 WBC (Bld) 72.8 % High 47-70 [facility] Nucleated red blood cell per centageOrdered By: [facility] on 04-26-2025 Nucleated RBC/100 WBC (Bld) [Ratio] 0 % 0-5 [facility] Oncology Visit Reporton 04-15 Oncology Visit Report [facility] [address] [place] [address] OFFICE VISIT Date of Service: 04/26/25912 MR#: [id number] Acct: [id number] Name: UZMA MCDONALD CADEN Rep #: [id number] : 1970 From: Imani Persaud MD Age/Sex: 54/F [place] [facility] [place] Status: Signed HPI Subjective Date of Service 04/26/25 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 The patient was seen in [facility] emergency room January 08, 2025 with urinary symptoms that proved to be due to a UTI which improved with a course of antibiotics. An incidental left pelvic mass was seen on CT scan. January 08, 2025 CT abdomen and pelvis: FINDINGS: Lung bases: Clear Liver: Diffuse fatty infiltration. Enlarged Gallbladder: Surgically absent. Spleen: Normal size. Pancreas: Unremarkable. Adrenals: Unremarkable. Kidneys: Left peripelvic fat stranding with 14 mm nonobstructive calculus. Nonobstructive calculi are also noted in the left kidney.. Bladder: Unremarkable. Reproductive Organs: Prior hysterectomy. Adnexal regions are unremarkable. Bowel: No bowel obstruction. Appendix: Normal. Lymph nodes: There is a heterogeneously enhancing mass in the left pelvis measuring 7.3 x 8.1 cm. No other corresponding lymphadenopathy is noted. Vasculature: Mild diffuse atherosclerotic calcifications are noted. Peritoneum / Retroperitoneum: No ascites. No free air. Bones: Unremarkable. IMPRESSION: 1. Heterogeneous left pelvic mass concerning for neoplasm 2. Left pyelonephritis with nonobstructive stone. Nonobstructive calculi also noted in the right kidney. 3. Hepatic steatosis and hepatomegaly January 12, 2025 transvaginal ultrasound: IMPRESSION: Status post hysterectomy and right oophorectomy. Heterogeneous enlargement of the left ovary with blood flow. This corresponds with the CT findings. January 26, 2025 patient underwent exploratory laparotomy, left oophorectomy, removal of pelvic mass, omentectomy. Pathology: A. 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 B. Pelvic mass excision: High-grade sarcoma with myogenic differentiation, favor leiomyosarcoma. C. Omentum, omentectomy benign adipose tissue negative for malignancy. D. Ovary left oophorectomy: Ovary with no significant pathologic changes. Comment: Sections from the pelvic mass show a highly cellular spindled and focally epithelioid malignant neoplasm with marked cytologic atypia, brisk mitotic activity and tumor cell necrosis. IHC at [facility] positive for SMA, negative for desmin, STAT6, pancytokeratin, S100 and CD34. Additional IHC done at [facility] showed negative Desmin, negative Caldesmon, ER diffuse strong positive, ALK negative, p53 aberrant (strong diffuse), PTEN retained staining, RB1 loss of staining, HMB45 negative. Again the overall morphologic and IHC features consistent with a high-grade sarcoma with a diagnosis of leiomyosarcoma is favored. The site of origin of this tumor is difficult to determine but the presence of ER staining raises the possibility of m???llerian origin. January 26, 2025 peritoneal washings no malignant cells identified. March 26, 2025 chest abdomen and pelvis CT: IMPRESSION: 1. Few scattered less than 6 mm indeterminate pulmonary nodules. Otherwise, no evidence of metastatic disease in the thorax. 2. Status post hysterectomy and resection of previously noted mass. Small indeterminate soft tissue nodules noted within the anterior pelvic mesentery and hysterectomy bed. These may represent sequela of postoperative changes. However, peritoneal carcinomatosis can not be excluded. Attention on follow-up is recommended. 3. 18 mm left renal pelvis obstructing calculus with mild hydronephrosis. Multiple other nonobstructing calculi. 4. 3 mm left UVJ/posterior urinary bladder wall calculus. Treatment summary and response: * January 26, 2025 patient underwent exploratory laparotomy, left oophorectomy, removal of pelvic mass, omentectomy. * Docetaxel gemcitabine April 19, 2025 [facility] Medical History Encounter for education Cancer Back pain Shortness of breath on exertion Leg cramps History of stress test Primary leiomyosarcoma of pelvis Anemia due to chronic blood loss Menorrhagia Wears dentures High cholesterol Loss of consciousness Gastric reflux Smoker Cardiology follow-up encounter History of echocardiogram Cardiac murmur History of non-ST elevation myocardial infarction (NSTEMI) (06/2014) Essential (primary) hyperten (more content not included)... Normal [facility] Phosphoruson 04-26-2025 Phosphate [Mass/Vol] 2.4 mg/dL Low 2.7-4.5 [facility] Comment on above: Performed By: #### L 501.2300, L100.0100 #### [facility] Laboratory [facility] [place], [address] Platelet countOrdered By: Jonatan Persaud on 04-26-2025 Platelets (Bld) [#/Vol] 126 10*3/uL Low 150-450 [facility] Potassium measurement (mass/ volume)Ordered By: Imani Persaud on 04-26-2025 Potassium (Unsp spec) [Mass/Vol] 3.8 mmol/L 3.3-5.1 [facility] RBC Auto (Bld) [#/Vol]Ordere d By: Imani Persaud on 04-26-2025 RBC (Bld) [#/Vol] 4.56 10*6/uL 4.2-5.4 [facility] Serum creatinine measurement (mass/volume)Ordered By: Imani Persaud on 04-26-2025 Creatinine [Mass/Vol] 0.57 mg/dL Low 0.70-1.20 [facility] Serum globulin measurementOr dered By: Imani Persaud on 04-26-2025 Globulin (S) [Mass/Vol] 3.4 g/dL 2.2-4.2 [facility] Serum glucose measurement (m ass/volume)Ordered By: Imani Persaud on 04-26-2025 Glucose [Mass/Vol] 209 mg/dL High 70-99 [facility] Serum or plasma alanine del rio otransferase (ALT) measurementOrdered By: Imani Persaud on 04-26-2025 ALT [Catalytic activity/Vol] 14 U/L <35 [facility] Serum or plasma albumin cass urement (mass/volume)Ordered By: Imani Persaud on 04-26-2025 Albumin [Mass/Vol] 3.9 g/dL 3.5-5.0 [facility] Serum or plasma albumin/glob ulin mass ratioOrdered By: Imani Persaud on 04-26-2025 Albumin/Globulin [Mass ratio] 1.1 {ratio} 0.9-2.4 [facility] Serum or plasma alkaline tre sphatase measurementOrdered By: Imani Persaud on 04-26-2025 ALP [Catalytic activity/Vol] 108 U/L High 35-104 [facility] Serum or plasma calcium cass urement (mass/volume)Ordered By: Imani Persaud on 04-26-2025 Calcium [Mass/Vol] 9.8 mg/dL 7.6-11.0 [facility] Serum or plasma urea nitroge n measurement (mass/volume)Ordered By: Imani Persaud on 04-26-2025 Urea nitrogen [Mass/Vol] 9 mg/dL 4-19 [facility] Sodium levelOrdered By: Alison Persaud on 04-26-2025 Sodium [Moles/Vol] 136 mmol/L 133-145 [facility] Total proteinOrdered By: Lonnie Persaud on 04-26-2025 Protein [Mass/Vol] 7.3 g/dL 5.9-8.4 [facility] White blood cell (WBC) count Ordered By: Imani Persaud on 04-26-2025 WBC (Bld) [#/Vol] 4.8 10*3/uL 4.4-11.0 [facility] Absolute lymphocyte countOrd ered By: Imani Persaud on 04-19-2025 Lymphocytes Auto (Unsp spec) [#/Vol] 1.21 10*3/uL 0.83-4.51 [facility] Absolute neutrophil countOrd ered By: [facility] 04-19-2025 Neutrophils (Bld) [#/Vol] 7.4 10*3/uL 2.0-7.7 [facility] Anion gap in Serum or Plasma Or[facility]: [facility] on 04-19-2025 Anion gap [Moles/Vol] 14 mmol/L 5- [facility] Automated lymphocyte count a s percentage of total leukocytesOrdered By: [facility] on 04-19-2025 Lymphocytes/100 WBC Auto (Unsp spec) 12.7 % Low 19-41 [facility] BUN/creatinine ratioOrdered By: [facility] Cori on 04-19-2025 Urea nitrogen/Creatinine [Mass ratio] 19.6 mg/mg 10- [facility] Basophil percentageOrdered B y: Imani Persaud on 04-19-2025 Basophils/100 WBC (Bld) 0.3 % 0-1 [facility] Bilirubin, totalOrdered By: [facility] on 04-19-2025 Bilirubin [Mass/Vol] 0.33 mg/dL 0.00-1.30 [facility] CBC W/Diff, Automatedon Absolute Lymph 1.21 X10 3/uL Normal 0.83-4.51 [facility] Comment on above: Performed By: #### L 501.5200, L500.4050, L100.0100 ####[facility] [address] [place], [address] Absolute Neut 7.4 X10 3/uL Normal 2.0-7.7 [facility] Comment on above: Performed By: #### L 501.5200, L500.4050, L100.0100 ####[facility] [address] [place], [address] Basophils/100 WBC (Bld) 0.3 % Normal 0-1 [facility] Comment on above: Performed By: #### L 501.5200, L500.4050, L100.0100 ####[facility] [address] [place], [address] Eosinophils/100 WBC (Bld) 0.2 % Normal 0-5 [facility] Comment on above: Performed By: #### L 501.5200, L500.4050, L100.0100 ####[facility] [address] [place], [address] Erythrocyte distribution width (RBC) [Ratio] 13.8 % Normal 11.6-14.6 [facility] Comment on above: Performed By: #### L 501.5200, L500.4050, L100.0100 ####[facility] [address] [place], [address] Hematocrit (Bld) [Volume fraction] 42.9 % Normal 37-47 [facility] Comment on above: Performed By: #### L 501.5200, L500.4050, L100.0100 ####[facility] [address] [place], [address] Hemoglobin (Bld) [Mass/Vol] 14.6 g/dL Normal 12.0-15.0 [facility] Comment on above: Performed By: #### L 501.5200, L500.4050, L100.0100 ####[facility] [address] [place], [address] IG% 0.500 Normal 0.0-0.9 [facility] Comment on above: Result Comment: IG% - Immature Granulocytes (promyelocytes, myelocytes and metamyelocytes) > 1% indicates that a LEFT SHIFT is Present. Performed By: #### L 501.5200, L500.4050, L100.0100 ####[facility] [address] [place], [address] Lymphocytes/100 WBC (Bld) 12.7 % Low 19-41 [facility] Comment on above: Performed By: #### L 501.5200, L500.4050, L100.0100 ####[facility] [address] [place], [address] MCH (RBC) [Entitic mass] 29.1 pg Normal 27.0-32.0 [facility] Comment on above: Performed By: #### L 501.5200, L500.4050, L100.0100 ####[facility] [address] [place], [address] MCHC (RBC) [Mass/Vol] 34.0 g/dL Normal 32-36 [facility] Comment on above: Performed By: #### L 501.5200, L500.4050, L100.0100 ####[facility] [address] [place], [address] MCV (RBC) [Entitic vol] 85.5 fL Normal 81-99 [facility] Comment on above: Performed By: #### L 501.5200, L500.4050, L100.0100 ####[facility] [address] [place], [address] Monocytes/100 WBC (Bld) 8.1 % Normal 0-10 [facility] Comment on above: Performed By: #### L 501.5200, L500.4050, L100.0100 ####[facility] [address] [place], [address] Neutrophils/100 WBC (Bld) 78.2 % High 47-70 [facility] Comment on above: Performed By: #### L 501.5200, L500.4050, L100.0100 ####[facility] [address] [place], [address] Nucleated RBC (Bld) [#/Vol] 0 10*3/uL Normal 0-5 [facility] Comment on above: Performed By: #### L 501.5200, L500.4050, L100.0100 ####[facility] [address] [place], [address] Platelet mean volume (Bld) [Entitic vol] 9.7 fL Normal 6.2-12.0 [facility] Comment on above: Performed By: #### L 501.5200, L500.4050, L100.0100 ####[facility] [address] [place], [address] Platelets (Bld) [#/Vol] 226 10*3/uL Normal 150-450 [facility] Comment on above: Performed By: #### L 501.5200, L500.4050, L100.0100 ####[facility] [address] [place], [address] RBC (Bld) [#/Vol] 5.02 10*6/uL Normal 4.2-5.4 [facility] Comment on above: Performed By: #### L 501.5200, L500.4050, L100.0100 ####[facility] [address] [place], [address] RDW SD 43.0 fl Normal 35.1-43.9 [facility] Comment on above: Performed By: #### L 501.5200, L500.4050, L100.0100 ####[facility] [address] [place], [address] WBC (Bld) [#/Vol] 9.5 10*3/uL Normal 4.4-11.0 [facility] Comment on above: Performed By: #### L 501.5200, L500.4050, L100.0100 ####[facility] [address] [place], [address] Carbon dioxide, total [Moles /volume] in Central venous bloodOrdered By: Imani Persaud on 04-19-2025 CO2 [Moles/Vol] 18.6 mmol/L Low 21.0-32.0 [facility] Chloride assayOrdered By: Jonatan Persaud on 04-19-2025 Chloride [Moles/Vol] 105 mmol/L 98-108 [facility] Comprehensive Metabolic Prof ilon 04-19-2025 Albumin [Mass/Vol] 4.0 g/dL Normal 3.5-5.0 [facility] Comment on above: Performed By: #### L 501.5200, L500.4050, L100.0100 ####[facility] [address] [place], [address] Albumin/Globulin [Mass ratio] 1.1 {ratio} Normal 0.9-2.4 [facility] Comment on above: Performed By: #### L 501.5200, L500.4050, L100.0100 ####[facility] [address] [place], [address] ALK PHOS 115 U/L High 35-104 [facility] Comment on above: Performed By: #### L 501.5200, L500.4050, L100.0100 ####[facility] [address] [place], [address] ALT [Catalytic activity/Vol] 14 U/L Normal <=34 [facility] Comment on above: Performed By: #### L 501.5200, L500.4050, L100.0100 ####[facility] [address] [place], [address] AST [Catalytic activity/Vol] 16 U/L Normal <=31 [facility] Comment on above: Performed By: #### L 501.5200, L500.4050, L100.0100 ####[facility] [address] [place], [address] Bilirubin [Mass/Vol] 0.33 mg/dL Normal 0.00-1.30 [facility] Comment on above: Performed By: #### L 501.5200, L500.4050, L100.0100 ####[facility] [address] [place], [address] BUN/CRE 19.6 RATIO Normal 10-20 [facility] Comment on above: Performed By: #### L 501.5200, L500.4050, L100.0100 ####[facility] [address] [place], [address] Calcium [Mass/Vol] 9.6 mg/dL Normal 7.6-11.0 [facility] Comment on above: Performed By: #### L 501.5200, L500.4050, L100.0100 ####[facility] [address] [place], [address] Chloride [Moles/Vol] 105 mmol/L Normal 98-108 [facility] Comment on above: Performed By: #### L 501.5200, L500.4050, L100.0100 ####[facility] [address] [place], [address] CO2 [Moles/Vol] 18.6 mmol/L Low 21.0-32.0 [facility] Comment on above: Performed By: #### L 501.5200, L500.4050, L100.0100 ####[facility] [address] [place], [address] Creatinine [Mass/Vol] 0.59 mg/dL Low 0.70-1.20 [facility] Comment on above: Performed By: #### L 501.5200, L500.4050, L100.0100 ####[facility] [address] [place], [address] ECRCL 133.85 ml/min Normal 50-250 [facility] Comment on above: Performed By: #### L 501.5200, L500.4050, L100.0100 ####[facility] [address] [place], [address] GAP 14 Normal 5-15 [facility] Comment on above: Performed By: #### L 501.5200, L500.4050, L100.0100 ####[facility] [address] [place], [address] GFR/1.73 sq M.predicted among non-blacks MDRD (S/P/Bld) [Vol rate/Area] 107 mL/min/{1.73_m2} Normal >60 [facility] Comment on above: Result Comment: mL/m in/1.73m2 CKD-EPI Creatinine Equation (2020) Performed By: #### L 501.5200, L500.4050, L100.0100 ####[facility] [address] [place], [address] Globulin (S) [Mass/Vol] 3.8 g/dL Normal 2.2-4.2 [facility] Comment on above: Performed By: #### L 501.5200, L500.4050, L100.0100 ####[facility] [address] [place], [address] Glucose [Mass/Vol] 161 mg/dL High 70-99 [facility] Comment on above: Performed By: #### L 501.5200, L500.4050, L100.0100 ####[facility] [address] [place], [address] Potassium [Moles/Vol] 4.0 mmol/L Normal 3.3-5.1 [facility] Comment on above: Performed By: #### L 501.5200, L500.4050, L100.0100 ####[facility] [address] [place], [address] Sodium [Moles/Vol] 138 mmol/L Normal 133-145 [facility] Comment on above: Performed By: #### L 501.5200, L500.4050, L100.0100 ####[facility] [address] [place], [address] T PROT 7.7 g/dL Normal 5.9-8.4 [facility] Comment on above: Performed By: #### L 501.5200, L500.4050, L100.0100 ####[facility] [address] [place], [address] Urea nitrogen [Mass/Vol] 12 mg/dL Normal 4-19 [facility] Comment on above: Performed By: #### L 501.5200, L500.4050, L100.0100 ####[facility] [address] [place], [address] Eosinophil percentageOrdered By: Imani Persaud on 04-19-2025 Eosinophils/100 WBC (Bld) 0.2 % 0-5 [facility] Erythrocyte distribution wid th ratioOrdered By: [facility] on 04-19-2025 Erythrocyte distribution width (RBC) [Ratio] 13.8 % 11.6-14.6 [facility] Erythrocyte distribution wid th standard deviationOrdered By: Imani Persaud on 04-19-2025 Erythrocyte distribution width (RBC) [Ratio] 43.0 fl 35.1-43.9 [facility] Glomerular filtration rate ( GFR) estimation/1.73 sq m using serum, plasma, or whole bOrdered By: Imani Persaud on 04-19-2025 GFR/1.73 sq M.predicted among non-blacks MDRD (S/P/Bld) [Vol rate/Area] 107 mL/min/{1.73_m2} >60 [facility] Comment on above: mL/min/1.73m2 CKD-EP I Creatinine Equation (2020) Hematocrit Auto (Bld) [Volum e fraction]Ordered By: Imani Persaud on 04-19-2025 Hematocrit (Bld) [Volume fraction] 42.9 % 37-47 [facility] Hemoglobin measurementOrdere d By: Imani Persaud on 04-19-2025 Hemoglobin (Bld) [Mass/Vol] 14.6 g/dL 12.0-15.0 [facility] Immature granulocytes/100 WB C Auto (Bld)Ordered By: [facility] on 04-19-2025 Immature granulocytes/100 WBC (Bld) 0.500 % 0.0-0.9 [facility] Comment on above: IG% - Immature Granu locytes (promyelocytes, myelocytes and metamyelocytes) > 1% indicates that a LEFT SHIFT is Present. Laboratory - Chemistry and C hemistry - challengeOrdered By: [facility] on 04-19-2025 AST [Catalytic activity/Vol] 16 U/L <32 [facility] MCV (mean corpuscular volume ) determinationOrdered By: [facility] on 04-19-2025 MCV (RBC) [Entitic vol] 85.5 fL 81-99 [facility] Magnesiumon 04-19-2025 Magnesium [Mass/Vol] 2.1 mg/dL Normal 1.5-2.2 [facility] Comment on above: Performed By: #### L 501.5200, L500.4050, L100.0100 ####[facility] [address] [place], [place], [address] Magnesium measurement (mass/ volume)Ordered By: [facility] on 04-19-2025 Magnesium (Unsp spec) [Mass/Vol] 2.1 mg/dL 1.5-2.2 [facility] Mean corpuscular hemoglobin (MCH) determinationOrdered By: [facility] on 04-19-2025 MCH (RBC) [Entitic mass] 29.1 pg 27.0-32.0 [facility] Mean corpuscular hemoglobin concentration (MCHC) determinationOrdered By: [facility] on 04-19-2025 MCHC (RBC) [Mass/Vol] 34.0 g/dL 32-36 [facility] Mean platelet volume determi nationOrdered By: [facility] Cori on 04-19-2025 Platelet mean volume (Bld) [Entitic vol] 9.7 fL 6.2-12.0 [facility] Monocyte percentageOrdered B y: Imani Persaud on 04-19-2025 Monocytes/100 WBC (Bld) 8.1 % 0-10 [facility] Neutrophil percentageOrdered By: Alisonira Persaud on 04-19-2025 Neutrophils/100 WBC (Bld) 78.2 % High 47-70 [facility] Nucleated red blood cell per centageOrdered By: [facility] on 04-19-2025 Nucleated RBC/100 WBC (Bld) [Ratio] 0 % 0-5 [facility] Oncology Visit Reporton 06 Oncology Visit Report [facility] [place] [facility] [address] [place] [address] OFFICE VISIT Date of Service: 04/19/25905 MR#: [id number] Acct: [id number] Name: UZMA MCDONALD Rep #: [id number] : 1970 From: Imani Persaud MD Age/Sex: 54/F Location: [facility] Status: Signed HPI Subjective Date of Service 04/19/25 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 The patient was seen in [facility] emergency room January 08, 2025 with urinary symptoms that proved to be due to a UTI which improved with a course of antibiotics. An incidental left pelvic mass was seen on CT scan. January 08, 2025 CT abdomen and pelvis: FINDINGS: Lung bases: Clear Liver: Diffuse fatty infiltration. Enlarged Gallbladder: Surgically absent. Spleen: Normal size. Pancreas: Unremarkable. Adrenals: Unremarkable. Kidneys: Left peripelvic fat stranding with 14 mm nonobstructive calculus. Nonobstructive calculi are also noted in the left kidney.. Bladder: Unremarkable. Reproductive Organs: Prior hysterectomy. Adnexal regions are unremarkable. Bowel: No bowel obstruction. Appendix: Normal. Lymph nodes: There is a heterogeneously enhancing mass in the left pelvis measuring 7.3 x 8.1 cm. No other corresponding lymphadenopathy is noted. Vasculature: Mild diffuse atherosclerotic calcifications are noted. Peritoneum / Retroperitoneum: No ascites. No free air. Bones: Unremarkable. IMPRESSION: 1. Heterogeneous left pelvic mass concerning for neoplasm 2. Left pyelonephritis with nonobstructive stone. Nonobstructive calculi also noted in the right kidney. 3. Hepatic steatosis and hepatomegaly January 12, 2025 transvaginal ultrasound: IMPRESSION: Status post hysterectomy and right oophorectomy. Heterogeneous enlargement of the left ovary with blood flow. This corresponds with the CT findings. January 26, 2025 patient underwent exploratory laparotomy, left oophorectomy, removal of pelvic mass, omentectomy. Pathology: A. 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 B. Pelvic mass excision: High-grade sarcoma with myogenic differentiation, favor leiomyosarcoma. C. Omentum, omentectomy benign adipose tissue negative for malignancy. D. Ovary left oophorectomy: Ovary with no significant pathologic changes. Comment: Sections from the pelvic mass show a highly cellular spindled and focally epithelioid malignant neoplasm with marked cytologic atypia, brisk mitotic activity and tumor cell necrosis. IHC at [facility] positive for SMA, negative for desmin, STAT6, pancytokeratin, S100 and CD34. Additional IHC done at [facility] showed negative Desmin, negative Caldesmon, ER diffuse strong positive, ALK negative, p53 aberrant (strong diffuse), PTEN retained staining, RB1 loss of staining, HMB45 negative. Again the overall morphologic and IHC features consistent with a high-grade sarcoma with a diagnosis of leiomyosarcoma is favored. The site of origin of this tumor is difficult to determine but the presence of ER staining raises the possibility of m???llerian origin. January 26, 2025 peritoneal washings no malignant cells identified. March 26, 2025 chest abdomen and pelvis CT: IMPRESSION: 1. Few scattered less than 6 mm indeterminate pulmonary nodules. Otherwise, no evidence of metastatic disease in the thorax. 2. Status post hysterectomy and resection of previously noted mass. Small indeterminate soft tissue nodules noted within the anterior pelvic mesentery and hysterectomy bed. These may represent sequela of postoperative changes. However, peritoneal carcinomatosis can not be excluded. Attention on follow-up is recommended. 3. 18 mm left renal pelvis obstructing calculus with mild hydronephrosis. Multiple other nonobstructing calculi. 4. 3 mm left UVJ/posterior urinary bladder wall calculus. Treatment summary and response: * January 26, 2025 patient underwent exploratory laparotomy, left oophorectomy, removal of pelvic mass, omentectomy. * Docetaxel gemcitabine April 19, 2025 [facility] Medical History Encounter for education Cancer Back pain Shortness of breath on exertion Leg cramps History of stress test Primary leiomyosarcoma of pelvis Anemia due to chronic blood loss Menorrhagia Wears dentures High cholesterol Loss of consciousness Gastric reflux Smoker Cardiology follow-up encounter History of echocardiogram Cardiac murmur History of non-ST elevation myocardial infarction (NSTEMI) (06/2014) Essential (primary) hypert (more content not included)... Normal [facility] Platelet countOrdered By: Jonatan Persaud on 04-19-2025 Platelets (Bld) [#/Vol] 226 10*3/uL 150-450 [facility] Potassium measurement (mass/ volume)Ordered By: Imani Persaud on 04-19-2025 Potassium (Unsp spec) [Mass/Vol] 4.0 mmol/L 3.3-5.1 [facility] RBC Auto (Bld) [#/Vol]Ordere d By: Imani Persaud on 04-19-2025 RBC (Bld) [#/Vol] 5.02 10*6/uL 4.2-5.4 [facility] Serum creatinine measurement (mass/volume)Ordered By: Imani Persaud on 04-19-2025 Creatinine [Mass/Vol] 0.59 mg/dL Low 0.70-1.20 [facility] Serum globulin measurementOr dered By: Imani Persaud on 04-19-2025 Globulin (S) [Mass/Vol] 3.8 g/dL 2.2-4.2 [facility] Serum glucose measurement (m ass/volume)Ordered By: Imani Persaud on 04-19-2025 Glucose [Mass/Vol] 161 mg/dL High 70-99 [facility] Serum or plasma alanine del rio otransferase (ALT) measurementOrdered By: Imani Persaud on 04-19-2025 ALT [Catalytic activity/Vol] 14 U/L <35 [facility] Serum or plasma albumin cass urement (mass/volume)Ordered By: Imani Persaud on 04-19-2025 Albumin [Mass/Vol] 4.0 g/dL 3.5-5.0 [facility] Serum or plasma albumin/glob ulin mass ratioOrdered By: Alisonira Persaud on 04-19-2025 Albumin/Globulin [Mass ratio] 1.1 {ratio} 0.9-2.4 [facility] Serum or plasma alkaline tre sphatase measurementOrdered By: Alisonira Persaud on 04-19-2025 ALP [Catalytic activity/Vol] 115 U/L High 35-104 [facility] Serum or plasma calcium cass urement (mass/volume)Ordered By: Imani Persaud on 04-19-2025 Calcium [Mass/Vol] 9.6 mg/dL 7.6-11.0 [facility] Serum or plasma urea nitroge n measurement (mass/volume)Ordered By: Imani Persaud on 04-19-2025 Urea nitrogen [Mass/Vol] 12 mg/dL 4-19 [facility] Sodium levelOrdered By: Alison Persaud on 04-19-2025 Sodium [Moles/Vol] 138 mmol/L 133-145 [facility] Total proteinOrdered By: Lonnie Persaud on 04-19-2025 Protein [Mass/Vol] 7.7 g/dL 5.9-8.4 [facility] White blood cell (WBC) count Ordered By: Imani Persaud on 04-19-2025 WBC (Bld) [#/Vol] 9.5 10*3/uL 4.4-11.0 [facility] Cardiology Visit Reporton Cardiology Visit Report [facility] [address] [place], [place] [address] OFFICE VISIT Date of Service: 04/18/25 MR#: [id number] Acct: [id number] Name: UZMA MCDONALD Rep #: [id number] : 1970 Provider: LONG aleman Age/Sex: 54/F Location: [facility] Status: Signed HPI HPI History of Present Illness Details: Uzma Mcdonald is a 54 year-old lady who presents for a follow-up visit. She is a lady with a history of previous LAD stent in 2013 and a documented abnormal stress test from March 2021. She underwent repeat cardiac catheterization which demonstrated 70 to 80% right coronary lesion for which he underwent angioplasty and stenting. She denies chest, arm, jaw, or neck discomfort. Prior to stenting in and 2020 she noted jaw discomfort, palpitations, and fatigue. She denies palpitations. She denies bilateral lower extremity edema. She denies claudication. She states shortness of breath with activity such running up steps. She denies shortness of breath at rest, orthopnea, or PND. She denies chronic cough. She denies significant, sudden weight gain. She denies lightheadedness, dizziness, near- syncope, or syncope. She denies blood in urine, blood in stool, or epistaxis. He denies fever with chills. She denies myalgia. She denies fatigue. Her exercise level has remained stable. Intake Vital Signs 11/29/23 08:46 04/04/25 14:17 04/18/25 10:46 Height 5 ft 7 in 5 ft 7 in 5 ft 7 in Weight: 223 lb BMI 34.9 BP 118/78 Blood Pressure Location Lt brachial Position Sitting Respiration 16 Pulse 80 Pulse Source NIBP Intake Visit Reasons: 1 Y FU Credit Intern Required: No Is patient in pain?: No Allergies No Known Allergies Allergy (Verified 04/18/25 10:50) Medications ???Medication ???Instructions ???Recorded ???Confirmed ???Type aspirin 81 mg chewable tablet 81 mg PO DAILY@0800 hx of mi 06/0904/18/25 History atorvastatin 80 mg tablet 80 mg PO QHS cholesterol #90 tabs 11/29/23 04/18/25 Rx famotidine 20 mg tablet (Pepcid) 20 mg PO BID 11/29/23 04/18/25 His tory sertraline 50 mg tablet (Zoloft) 50 mg PO QHS 11/29/23 04/18/25 His tory lidocaine-prilocaine 2.5 %-2.5 % 1 applic topical ONCE PRN port 04/18/25 Rx topical cream access 30 days #30 grams ondansetron 8 mg disintegrating 8 mg PO Q8H PRN nausea and 5 04/18/25 Rx tablet vomiting #30 tabs prochlorperazine maleate 10 mg 10 mg PO Q6H PRN nausea and 04/18/25 Rx tablet vomiting #30 tabs dexamethasone 4 mg tablet 8 mg (2 x 4 mg) PO .COMPLEX #72 04/18/25 Rx tabs Ejection fraction %: 60 Have you fallen in the past year?: No Nurse's Note: Has been off of losartan and metoprolol since surgery in January due to low BP's. [facility] Medical History Encounter for education Cancer Back pain Shortness of breath on exertion Leg cramps History of stress test Primary leiomyosarcoma of pelvis Anemia due to chronic blood loss Menorrhagia Wears dentures High cholesterol Loss of consciousness Gastric reflux Smoker Cardiology follow-up encounter History of echocardiogram Cardiac murmur History of non-ST elevation myocardial infarction (NSTEMI) (06/2014) Essential (primary) hypertension Atherosclerosis of coronary artery without angina pectoris Kidney stones Surgical History H/O pelvic mass ( 01/26/25) History of cardiac catheterization Hx of oral surgery Hx laparoscopic cholecystectomy Hx of left cataract extraction History of hysterectomy Cataract extraction status of right eye Hx of tubal ligation History of coronary artery stent placement (03/31/21) Family History Father Kidney disease Aunt Cancer paternal Other Heart disease Social History household members: spouse housing: house Smoking Status: Current every day smoker tobacco type: cigarettes Tobacco: How many years used: 39 alcohol intake: never substance use type: does not use caffeine: Yes Type: coffee Number of servings: 1 and tea Number of servings: 2 ROS Const Const: Negative for fatigue or weakness Eyes Eyes: Negative for change in vision ENT ENT: Negative for dizziness or balance problems Cardio Chest Pain: No Palpitations: No Edema: None Muscle aches with walking: None Resp Respiratory: Positive for SOB with activity (When running up steps); Negative for SOB at rest or SOB orthopnea SOB lying down GI GI: Negative nausea or heartburn : Negative for hematuria or frequent nighttime urination/ nocturia Musc Musc: Negative for balance problems Skin Skin: Negative non-healing lesion (more content not included)... Normal [facility] Oncology Visit Reporton 05 Oncology Visit Report [facility] [address] [place] [address] OFFICE VISIT Date of Service: 04/04/25 1408 MR#: [id number] Acct: [id number] Name: UZMA MCDONALD Rep #: [id number] : 1970 From: Delmis Corral NP PRODUCT SUPPORT ENGINEER -C Age/Sex: 54/F Location: [facility] Status: Signed HPI Subjective Date of Service 04/04/25 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 The patient was seen in [facility] emergency room January 08, 2025 with urinary symptoms that proved to be due to a UTI which improved with a course of antibiotics. An incidental left pelvic mass was seen on CT scan. January 08, 2025 CT abdomen and pelvis: FINDINGS: Lung bases: Clear Liver: Diffuse fatty infiltration. Enlarged Gallbladder: Surgically absent. Spleen: Normal size. Pancreas: Unremarkable. Adrenals: Unremarkable. Kidneys: Left peripelvic fat stranding with 14 mm nonobstructive calculus. Nonobstructive calculi are also noted in the left kidney.. Bladder: Unremarkable. Reproductive Organs: Prior hysterectomy. Adnexal regions are unremarkable. Bowel: No bowel obstruction. Appendix: Normal. Lymph nodes: There is a heterogeneously enhancing mass in the left pelvis measuring 7.3 x 8.1 cm. No other corresponding lymphadenopathy is noted. Vasculature: Mild diffuse atherosclerotic calcifications are noted. Peritoneum / Retroperitoneum: No ascites. No free air. Bones: Unremarkable. IMPRESSION: 1. Heterogeneous left pelvic mass concerning for neoplasm 2. Left pyelonephritis with nonobstructive stone. Nonobstructive calculi also noted in the right kidney. 3. Hepatic steatosis and hepatomegaly January 12, 2025 transvaginal ultrasound: IMPRESSION: Status post hysterectomy and right oophorectomy. Heterogeneous enlargement of the left ovary with blood flow. This corresponds with the CT findings. January 26, 2025 patient underwent exploratory laparotomy, left oophorectomy, removal of pelvic mass, omentectomy. Pathology: A. 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 B. Pelvic mass excision: High-grade sarcoma with myogenic differentiation, favor leiomyosarcoma. C. Omentum, omentectomy benign adipose tissue negative for malignancy. D. Ovary left oophorectomy: Ovary with no significant pathologic changes. Comment: Sections from the pelvic mass show a highly cellular spindled and focally epithelioid malignant neoplasm with marked cytologic atypia, brisk mitotic activity and tumor cell necrosis. IHC at [facility] positive for SMA, negative for desmin, STAT6, pancytokeratin, S100 and CD34. Additional IHC done at [facility] showed negative Desmin, negative Caldesmon, ER diffuse strong positive, ALK negative, p53 aberrant (strong diffuse), PTEN retained staining, RB1 loss of staining, HMB45 negative. Again the overall morphologic and IHC features consistent with a high-grade sarcoma with a diagnosis of leiomyosarcoma is favored. The site of origin of this tumor is difficult to determine but the presence of ER staining raises the possibility of m???llerian origin. January 26, 2025 peritoneal washings no malignant cells identified. March 26, 2025 chest abdomen and pelvis CT: IMPRESSION: 1. Few scattered less than 6 mm indeterminate pulmonary nodules. Otherwise, no evidence of metastatic disease in the thorax. 2. Status post hysterectomy and resection of previously noted mass. Small indeterminate soft tissue nodules noted within the anterior pelvic mesentery and hysterectomy bed. These may represent sequela of postoperative changes. However, peritoneal carcinomatosis can not be excluded. Attention on follow-up is recommended. 3. 18 mm left renal pelvis obstructing calculus with mild hydronephrosis. Multiple other nonobstructing calculi. 4. 3 mm left UVJ/posterior urinary bladder wall calculus. Interval History Patient is presenting to clinic today for an education visit to discuss docetaxel/gemcitabine. Describes an active lifestyle good support system at home by way of spouse and adult children. [facility] Medical History (Updated 04/04/25 @ 15:35 by Delmis Corral NP, PRODUCT SUPPORT ENGINEER-C) Encounter for education Cancer Back pain Shortness of breath on exertion Leg cramps History of stress test Primary leiomyosarcoma of pelvis Anemia due to chronic blood loss Menorrhagia Wears dentures High cholesterol Loss of consciousness Gastric reflux Smoker Cardiology follow-up encounter History of echocardiogram Cardiac murmur History of non-ST elevation myocardial infarction (NSTEMI) (06/2014) (more content not included)... Normal [facility] CXR for Line Placementon CXR for Line Placement [facility] Imaging Services [address] [place] [address] CXR for Line Placement MR#: [id number] Acct: [id number] Name: UZMA MCDONALD Rep #: [id number] : 1970 F 54 From: Daljit olivares MD PCP: Dr. David Fink MD Status: [facility] Study: CXR for Line Placement Date of Exam: 04/02/25 Exam# [id number] Ordering Dr: Theo Richard PROCEDURE: CXR FOR LINE PLACEMENT 04/02/2025 REASON FOR EXAM: LINE PLACEMENT TECHNIQUE: Portable chest radiograph obtained. COMPARISON: Prior study dated June 16, 2021. FINDINGS: A right-sided port a catheter is seen with the tip at the junction of the superior vena cava and right atrium. EKG electrodes are seen. Heart size is upper limits of normal. The lungs are clear. RAD/CXR for Line Placement IMPRESSION: A right-sided port a catheter has been placed with the tip at the junction of the superior vena cava and right atrium. The heart size is upper limits of normal. Reading Location: [place] [address] CC: Dr. Theo Richard MD; Dr. David Fink MD Plant Control Aide: Signed Normal [facility] Discharge Instructionon 03-15 Discharge Instruction [facility] Medical Records Department [address] [place] [address] Instructions for Home/Discharge Instructions 04/02/25 1218 MR#: [id number] Acct: [id number] Name: UZMA MCDONALD Rep #: [id number] : 1970 54 From: Theo Richard MD PCP: Dr. David Fink MD Status:REG [facility] Discharge Instructions Procedure Gallbladder Diet Discharge Diet: Light diet - advance as tolerated Activity Discharge Activity: May Not Drive (for 2-3 days or while taking narcotic pain medications.) and - (Do not drive, work heavy equipment or sign legal documents for 24 hours.) May shower in (days): 1 Lifting Restrictions: 20 lbs for 2 weeks Additional Activity Instructions:: Pain medication may cause nausea. You should typically eat light foods as you take your pain medications. Pain medication may also cause constipation. If this is a problem for you, please discuss with your doctor. Resume aspirin tomorrow Dressing / Incision Call your doctor if your incision/area has: Continuous Slow Oozing, Sudden Increased Bleeding, Increased Pain/ Swelling, Increased Redness and Foul Smelling Discharge Call your doctor if you observe: Fever of 101 or Higher Suture Line Care: Avoid Pulling/Pushing and Avoid Pinching/Bending Remove Dressing in: 2 days Additional Dressing/Incision Instructions:: Leave operative bandaids on for 2 days. When you remove dressing, leave Steri-Strips on until your follow-up appointment, or until the Steri-Strips fall off on their own. Follow Up Care Please Follow Up With: Theo Richard MD When: Please call to schedule 2 week follow up appointment. [phone] Test Results: Test results from this visit will be discussed in further detail at your follow-up appointment, if applicable. Discharge Plan Admission Attending Provider: Theo Richard Primary Care Provider: David Fink Instructions Print Language: Tuvaluan Discharge Orders/Prescriptions Prescriptions: No Action sertraline [Zoloft] 50 mg tablet 50 mg PO QHS famotidine [Pepcid] 20 mg tablet 20 mg PO BID atorvastatin 80 mg tablet 80 mg PO QHS Qty: 90 3RF aspirin 81 MG tablet,chewable 81 mg PO DAILY@0800 Referrals / Follow Up: David Fink MD [Primary Care Provider] - Disposition Disposition (needs filled in before D/C Order can be placed): Home, Self Care 04/02/25 1219 Theo Richard MD CC: Dr. David Fink MD Signed Normal [facility] MR/POSTOP.ANEon 04-02-2025 MR/POSTOP.ANE [facility] Medical Records Department [address] [place] [address] Anesthesia Postop Eval I 04/02/25 1153 MR#: [id number] Acct: [id number] Name: KRISTINA MCDONALDSILVA NEGRETE Rep #: [id number] : 1970 54 From: Laquita Melendez CRNA PCP: Dr. David Fink MD Status:REG SD Y Race: C Location: [place] [address] Anesthesia: Postop Eval I Current Vital Signs Temperature: 97.4 F Pulse Rate: 72 Blood Pressure: 115/68 Respiratory Rate: 14 Pulse Ox: 97 Oxygen Delivery Method: Room Air Assessment Airway patent: Yes Spontaneous unlabored respirations: Yes Mental status: Awake nausea: No Vomiting: No Anesthesia Complication: No Fluid Hydration Crystalloid volume administer (ml): 500 Total IV fluid infused: 500 Progress Note Anesthesia document: Postop Eval 1 completed: Yes 04/02/25 1206 Date Laquita Melendez CRNA Cosigner Signature: Date CC: Signed Normal [facility] MR/[id number] 04-02-2025 MR/POSTOPAN2 [facility] Medical Records Department [address] [place] [address] Anesthesia Postop Eval II 04/02/25 1305 MR#: [id number] Acct: [id number] Name: UZMA MCDONALD Rep #: [id number] : 1970 54 From: Ck Cotto MD PCP: Dr. David Fink MD Status:REG SDC Y Race: C Location: [place] [address] Anesthesia Postop Eval I Sum Postop Eval Completion status Anesthesia document: Postop Eval 1 completed: Yes Anesthesia Postop Eval I Summary Anesthesia Postop Eval I Summary: Anesthesia Postop Eval I: Assessment Summary Airway patent Yes 04/02/25 12:06 OPERATIONS AND MAINTENANCE TECHNICAN.HBARR Spontaneous unlabored Yes 04/02/25 12:06 OPERATIONS AND MAINTENANCE TECHNICAN.HBARR respirations Mental status Awake 04/02/25 12:06 OPERATIONS AND MAINTENANCE TECHNICAN.HBARR nausea No 04/02/25 12:06 OPERATIONS AND MAINTENANCE TECHNICAN.HBARR Vomiting No 04/02/25 12:06 OPERATIONS AND MAINTENANCE TECHNICAN.HBARR Anesthesia Postop Eval I: Fluid Summary Crystalloid volume administer 500 04/02/25 12:06 OPERATIONS AND MAINTENANCE TECHNICAN.HBARR (ml) Colloids volume administered ( ml) Blood Product volume administered (ml) Total IV fluid infused 500 04/02/25 12:06 OPERATIONS AND MAINTENANCE TECHNICAN.HBARR Anesthesia Postop Eval I: Summary Notes Anesthesia Complication No 04/02/25 12:06 OPERATIONS AND MAINTENANCE TECHNICAN.HBARR Anesthesia Complication Comment: Post-operative progress note Anesthesia: Postop Eval II Evaluation Mental status: Awake Pain Level: 0 nausea: No Vomiting: No 04/02/25 1305 Date Ck Cotto MD Cosigner Signature: Date CC: Signed Normal [facility] Operative Reporton 5 Operative Report [facility] Medical Records Department [address] [place] [address] Operative Report 04/02/25 1216 MR#: [id number] Acct: [id number] Name: UZMA MCDONALD Rep #: [id number] : 1970 54 From: Theo Richard MD PCP: Dr. David Fink MD Status:[facility] Location: [place] [address] Operative Report (Standard) Operative Information Date of Procedure: 04/02/25 Pre-Operative Diagnosis: Need for vascular access for chemotherapy Post-Operative Diagnosis: Same Surgery/Procedure Performed: Ultrasound and fluoroscopy guided right chest port placement utilizing right IJ hotel [employer] floorperson: No Type of Anesthesia: Local MAC RN Documented Start/Stop Times: Operation Date: 04/02/25 11:30 Case Time Into Pre-Op 04/02/25 09:52 Out of Pre-Op 04/02/25 11:19 Anesthesia Start 04/02/25 11:21 Into Room 04/02/25 11:21 Procedure Start 04/02/25 11:39 Procedure End 04/02/25 11:55 Anesthesia End 04/02/25 11:59 Out of Room 04/02/25 11:59 Procedure Start Time: 11:39 Procedure Stop Time: 11:55 Select all DRAINS/GRAFTS/IMPLANTS that apply: Implanted device Implanted device details: 8 German PowerPort Estimated Blood Loss: 5 Specimen collected: No Description of surgery: After obtaining informed consent patient was brought back to the operating room MAC anesthesia was induced and the right chest and neck were prepped in normal sterile fashion. Ultrasound was used to evaluate both IJs and the right IJ was selected. Next, using a needle, the right IJ was accessed and a guidewire was passed on into the superior vena cava under fluoroscopy guidance. A small incision was made over the puncture site and the dilator introducer was placed over the guidewire. Next this was capped and the pocket was made for the port. 1% lidocaine with epinephrine was injected in the proposed port site. An incision was made with scalpel. Electrocautery was used to make a pocket under the skin and subcutaneous tissue. Hemostasis was obtained. Next, the catheter was tunneled up to the neck incision site and placed through the introducer. The peel-away introducer was removed and the position of the catheter was confirmed on fluoroscopy. Next, the catheter was trimmed and attached to the port with the locking device. Interrupted 2-0 Vicryl sutures were used to anchor the port to the chest wall and then the port was placed inside the pocket. The pocket was then flushed with saline and the port irrigated with saline. There was good blood return and the port flushed easily. Next, heparin was injected into the port. The skin was closed with subcutaneous interrupted 3-0 Vicryl sutures. A single 3-0 Vicryl sutures placed under the skin at the neck incision site. Steri-Strips were placed as well as op sites. Patient tolerated procedure well, was taken to PACU in stable condition. Chest x-ray will be obtained. Surgical Findings: None Complications Complications: No Admit VTE Documentation VTE Mechan Device Prophylaxis: SCD's 04/02/25 1218 Cosigner Signature (if applicable): CC: Dr. Theo Richard MD; Dr. David Fink MD Signed [facility] MR/PATClint 03-28-2025 MR/PAT.[facility] Medical Records Department [address] [place] [address] PAT - Anesthesia 03/28/25 1633 MR#: [id number] Acct: [id number] Name: UZMA MCDONALD Rep #: [id number] : 1970 54 From: Luis Barrientos MD PCP: Dr. David Fink MD Status:PRE SDC Y Race: C Location: [facility] Pre-Assessment Diagnosis/Proposed Procedure Planned Operative Procedure(s): INSERTION VASCULAR PORT RIGHT POSS LEFT Anesthesia History Anesthesia History - element burner: Anesthesia History - element burner Hx Hospitalization No 03/28/25 14:20 Any Problems With Anesthesia No 03/28/25 14:20 Cholinesterase deficiency No 03/28/25 14:20 You/Your Family Experience No 03/28/25 14:20 fever (hyperthermia) with Relationship Recent Exposure to Contagious No 05/28/22 08:52 Disease Does patient have nerve No 03/28/25 14:20 stimulator Patient instructed to have device shut off --Does patient have Pacemaker or ICD? When Was Last Pacemaker Check QUESTION #4 FULL TEXT: You/Your Family Experience fever (hyperthermia) with Anesthesia Last Oral Intake Last Oral intake: Last Oral Intake NPO since Meds taken in AM with sips of water? 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 - element burner: PONV - element burner Female Yes 03/28/25 14:20 HX of Motion Sickness No 03/28/25 14:20 HX of N/V After Surgery No 03/28/25 14:20 Non-Smoker No 03/28/25 14:20 Duration of Surgery greater No 03/28/25 14:20 than 60 minutes Number of Risk Factors 1 03/28/25 14:20 PONV Score Low Risk 03/28/25 14:20 Height Weight Height Weight: Anesthesia: Height Weight Height 5 ft 7 in 02/26/25 11:18 Respiratory Assessment Respiratory Assessment - element burner: Respiratory Tract Infection Hx - element burner Hx Respiratory Tract Infection No 03/28/25 14:20 STOP Sleep Apnea STOP Sleep Apnea - element burner: STOP Sleep Apnea - element burner Hx Hypertension Yes 03/28/25 14:20 Hx Sleep Apnea No 03/28/25 14:20 CPAP BIPAP Do you snore loudly (louder Yes 03/28/25 14:20 than talking or can be heard Do you often feel tired/ No 03/28/25 14:20 fatigued/ sleepy during daytime? Has anyone observed you stop No 03/28/25 14:20 breathing during sleep? STOP Results Positive 03/28/25 14:20 QUESTION #5 FULL TEXT : Do you snore loudly (louder than talking or can be heard through closed doors)? Tobacco Use History Tobacco Use History - element burner: Tobacco Use History - element burner Tobacco Use Cigarettes 03/28/21 15:34 Smoking Status Current every day smoker 03/28/25 14:20 Hx Tobacco Use Yes 03/28/25 14:20 Years Smoking Packs Smoked per Day Smoking Cessation Date was within the last 15 years Hx Smoking Cessation Date Hx Smoking Cessation Counseling Hematologic Medial History Hematologic Hx - element burner: Hematologic Medical Hx - grounds person Hx of Blood Transfusion Yes 03/28/25 14:20 Hx of Transfusion in last 3 No 03/28/25 14:20 Months Date of Last Transfusion (if within last 3 months) Ever experience any problems No 03/28/25 14:20 with transfusion(s)? Specify any problems Hx of Preganancy in last 3 No 03/28/25 14:20 Months Nurse Filling Out Transfusion DSCHRIBER 03/28/25 14:20 Questions: Date: 03/28/25 03/28/25 14:20 Time: 14:21 03/28/25 14:20 Patient unable to answer at this time (ie. 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 History - element burner: /Reproductive Hx- element burner Hx Now No 03/28/25 14:20 Gestational Age (in weeks): EDC: Hx Hx Para Hx Section SAB No 03/28/25 14:20 PFSH Medical History (Updated 03/28/25 @ 16:[address] Imani Persaud MD) Cancer Back pain Shortness of breath on exertion Leg cramps History of stress test Primary leiomyosarcoma of pelvis Anemia due to chronic blood loss Menorrhagia Wears dentures High cholesterol Loss of consciousness Gastric reflux Smoker Cardiology follow-up encounter History of echocardiogram Cardiac murmur History of non-ST elevation myocardial infarction (NSTEMI) (06/2014) Essential (primary) hypertension Atherosclerosis of coronary artery without angina pectoris Kidney stones Home Medications ???Medication ???Instructions ???Recorded ???Last Taken ???Type aspirin 81 mg chewable tablet 81 mg PO DAILY@0800 hx of mi 06/0905/23/22 History atorvastatin 80 mg tablet 80 mg PO QHS cholesterol #90 tabs 11/29/23 Unknown Rx famotidine 20 mg tablet (Pepcid) 20 mg PO BID 11/29/23 Unknown Hist ory s (more content not included)... Normal [facility] Oncology Visit Reporton 03-15 Oncology Visit Report [facility] [address] [place] [address] [place] [address] OFFICE VISIT Date of Service: 03/28/25 1532 MR#: [id number] Acct: [id number] Name: UZMA MCDONALD CADEN Rep #: [id number] : 1970 From: Imani Persaud MD Age/Sex: 54/F Location: [facility] Status: Signed HPI Subjective Date of Service 03/28/25 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 The patient was seen in [facility] emergency room January 08, 2025 with urinary symptoms that proved to be due to a UTI which improved with a course of antibiotics. An incidental left pelvic mass was seen on CT scan. January 08, 2025 CT abdomen and pelvis: FINDINGS: Lung bases: Clear Liver: Diffuse fatty infiltration. Enlarged Gallbladder: Surgically absent. Spleen: Normal size. Pancreas: Unremarkable. Adrenals: Unremarkable. Kidneys: Left peripelvic fat stranding with 14 mm nonobstructive calculus. Nonobstructive calculi are also noted in the left kidney.. Bladder: Unremarkable. Reproductive Organs: Prior hysterectomy. Adnexal regions are unremarkable. Bowel: No bowel obstruction. Appendix: Normal. Lymph nodes: There is a heterogeneously enhancing mass in the left pelvis measuring 7.3 x 8.1 cm. No other corresponding lymphadenopathy is noted. Vasculature: Mild diffuse atherosclerotic calcifications are noted. Peritoneum / Retroperitoneum: No ascites. No free air. Bones: Unremarkable. IMPRESSION: 1. Heterogeneous left pelvic mass concerning for neoplasm 2. Left pyelonephritis with nonobstructive stone. Nonobstructive calculi also noted in the right kidney. 3. Hepatic steatosis and hepatomegaly January 12, 2025 transvaginal ultrasound: IMPRESSION: Status post hysterectomy and right oophorectomy. Heterogeneous enlargement of the left ovary with blood flow. This corresponds with the CT findings. January 26, 2025 patient underwent exploratory laparotomy, left oophorectomy, removal of pelvic mass, omentectomy. Pathology: A. 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 B. Pelvic mass excision: High-grade sarcoma with myogenic differentiation, favor leiomyosarcoma. C. Omentum, omentectomy benign adipose tissue negative for malignancy. D. Ovary left oophorectomy: Ovary with no significant pathologic changes. Comment: Sections from the pelvic mass show a highly cellular spindled and focally epithelioid malignant neoplasm with marked cytologic atypia, brisk mitotic activity and tumor cell necrosis. IHC at [facility] positive for SMA, negative for desmin, STAT6, pancytokeratin, S100 and CD34. Additional IHC done at [facility] showed negative Desmin, negative Caldesmon, ER diffuse strong positive, ALK negative, p53 aberrant (strong diffuse), PTEN retained staining, RB1 loss of staining, HMB45 negative. Again the overall morphologic and IHC features consistent with a high-grade sarcoma with a diagnosis of leiomyosarcoma is favored. The site of origin of this tumor is difficult to determine but the presence of ER staining raises the possibility of m???llerian origin. January 26, 2025 peritoneal washings no malignant cells identified. March 26, 2025 chest abdomen and pelvis CT: IMPRESSION: 1. Few scattered less than 6 mm indeterminate pulmonary nodules. Otherwise, no evidence of metastatic disease in the thorax. 2. Status post hysterectomy and resection of previously noted mass. Small indeterminate soft tissue nodules noted within the anterior pelvic mesentery and hysterectomy bed. These may represent sequela of postoperative changes. However, peritoneal carcinomatosis can not be excluded. Attention on follow-up is recommended. 3. 18 mm left renal pelvis obstructing calculus with mild hydronephrosis. Multiple other nonobstructing calculi. 4. 3 mm left UVJ/posterior urinary bladder wall calculus. [facility] Medical History (Updated 03/28/25 @ 16:[address] Imani Persaud MD) Cancer Back pain Shortness of breath on exertion Leg cramps History of stress test Primary leiomyosarcoma of pelvis Anemia due to chronic blood loss Menorrhagia Wears dentures High cholesterol Loss of consciousness Gastric reflux Smoker Cardiology follow-up encounter History of echocardiogram Cardiac murmur History of non-ST elevation myocardial infarction (NSTEMI) (06/2014) Essential (primary) hypertension Atherosclerosis of coronary artery without angina pectoris Kidney stones Surgical History History of cardiac catheterization Hx of oral surgery (more content not included)... Normal [facility] SURG PATH REQUESTon 03-27-20 Case Report [facility] Comment on above: Result Comment: Surg ical Pathology Report Case: [id number] Authorizing Provider: Christopher Cunningham MD Collected: 03/27/2025 11:33 AM Ordering Location[facility] Received: 03/27/2025 11:33 AM [place] Pathologist: Pablo Valentine MD Specimen: SURG PATH, Uterus, bilateral fallopian tubes, right ovary Performed By: #### S URGP #### [facility] (DEFAULT) [address] [address] Diagnosis Comments There is no histolog ic evidence of any malignancy in this 2021 specimen. A subsequent 2024 specimen (to be reviewed at [facility] as [id number]) demonstrates a high grade malignancy. Normal [facility] Comment on above: Performed By: #### S URGP #### [facility] (DEFAULT) [address] [address] Gross Description [facility] Comment on above: Result Comment: The following material(s) are received from [facility], [address] [place], [place] [id number] with an identifying Surgical Pathology Report: 16 H&E slides labeled [id number]. Outside materials are returned in 60 days under separate cover with our number recorded on them. Grosser for this case was: [place] Performed By: #### S URGP #### [facility] (DEFAULT) [address] [address] Microscopic Description A microscopic examination was performed. [facility] Comment on above: Performed By: #### S URGP #### [facility] (DEFAULT) [address] [address] Pathologic Diagnosis [facility] Comment on above: Result Comment: Outs erika Slides [id number] (05/28/22) Uterus with bilateral fallopian tubes and right ovary, hysterectomy with right salpingo-oophorectomy and left salpingectomy: Cervix with nabothian cysts. Inactive focally-attenuated endometrium with pseudodecidual change. Myometrium with leiomyomata. Uterine serosa with no pathological data. Fallopian tubes with benign paratubal cysts. Ovary with cortical inclusion cysts. at 1200 EDT Performed By: #### S URGP #### [facility] (DEFAULT) [address] [address] Professional Interpretation Performed at: [facility] Comment on above: Result Comment: [facility] For Immediate Release [facility] [address] [address] Performed By: #### S URGP #### [facility] (DEFAULT) [address] [address] COMPREHENSIVE TUMOR GENOMIC PROFILE WITH MSI STATUS, SIGN OUTon 03-26-2025 Block/ [id number] (01/26/25) [facility] Comment on above: Performed By: #### N GS2 #### [facility] (DEFAULT) [address] [address] Comment Translocation status and copy number findings are based on NGS on tumor genomic DNA and may not correlate with findings by other methods (e.g. FISH or transcript analysis). Normal [facility] Comment on above: Performed By: #### N GS2 #### [facility] (DEFAULT) [address] [address] Copy Number Findings See interpretation above. Normal [facility] Comment on above: Performed By: #### N GS2 #### [facility] (DEFAULT) [address] [address] CTP Indication Other Normal [facility] Comment on above: Performed By: #### N GS2 #### [facility] (DEFAULT) [address] [address] CTP MSI Status Stable Low [facility] Comment on above: Performed By: #### N GS2 #### [facility] (DEFAULT) [address] [address] CTP Mutation Level Low Normal [facility] Comment on above: Performed By: #### N GS2 #### [facility] (DEFAULT) [address] [address] CTPNGS Report/Interpretation [facility] Comment on above: Result Comment: [facility] Comprehensive Tumor Panel Patient Information Specimen Information Name: Uzma Mcdonald Source: Pelvis, mass, excision Order ID: [id number] 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 Extensive genomic complexity noted including homozygous deletion of PDCD1 and adjacent [id number] sequences, among many chromosomal segmental losses/gains. Comment: Low tumor mutation burden with high genomic complexity is consistent with a high-grade sarcoma. Correlate with pathology report for final diagnosis. Electronically Signed By: Girish Wolfe MD, PhD Clinically Significant or Potentially Significant Tumor-Associated Variants Gene Alteration Genomic Coordinates VAF Type of Alteration Significance* Therapeutic Implications Additional Information TP53 p.Y220H c.658T>C [id number]:A:G 96.8% Substitution - Missense Tier 2, Level C Evidence gnomAD: 0.0004% ClinVar: [id number] Biomarker Status Biomarker Result Therapeutic Implications Additional Information MSI Microsatellite Stable (ARMINDA) None Percent Unstable Sites: 3.5 Loci Assessed: 88 Mutation Level Low None Somatic/Likely Somatic Calls: 2 Interpretative Guide: Genes in panel: See methodology section below for list of genes and areas covered. Variant calling: Significance/Tier according to the AMP/ASCO/CAP somatic variant classification system. Highlighted Tier 1a calls are those linked to FDA-approved therapies or professional guidelines for this tumor type. Calls in the top table also include Tier 1b (well-powered therapy studies or strong cancer-type association) or Tier 2 calls based on variant type association with this tumor type or smaller functional/therapy studies. A table is also provided if there are likely germline calls (based on variant fraction/prior studies) that have been previously associated with relevant disease states or cancer risk association using the 5-tier variant class per ACMG criteria. The lower table includes Tier 3 somatic/likely somatic or unclear source variants without strong oncogenic or pathogenic associations. Germline/likely germline variants without currently known disease association are not reported. Variant Features: Includes relevant structural or functional data derived from the CKB database (https://[employer].SIZESEEKER.org) or [employer] annotation. For likely germline calls, associations are drawn from the literature and/or ClinVar (https://www.ncbi.nlm.nih.gov/clinvar). Therapeutic Implications: Drug response/drug sensitivity or resistance are as described in the drug response sections of this report. These associations are drawn from FDA guidance or consensus guidelines and are not necessarily predictions of response or resistance in any particular case. Allele Frequency (AF): Population frequency drawn from the Genome Aggregation Database (gnomAD) dbSNP: RS number of alteration in dbSNP database (http://www.ncbi.nlm.nih.gov/SNP/) Description of assayed genomic features below for this panel are described at [email or web address] Mutation level: Reported per tumor type in 3-tiers as low (<25% percentile), mid-range (25-75% percentile) and high (>75% percentile) based on the number likely somatic/somatic variants in coding regions. Microsatellite instability (MSI): Assessed at up to 94 microsatellites using mSINGS software. Gene fusions: Select gene fusions are assessed using intron tiling and a custom analytic pipeline. See summary below. Copy number (CN) alterations: Tumor-specific chromosomal region gain/losses reported using CNVkit software if meeting JML-validated cutoffs and relevant to this tumor type Variants of Uncertain Significance (Tier 3, Somatic or Likely Somatic) Gene Alteration Genomic Coordinates VAF Type of Alteration Significance* Features Additional Information CDK12 p.R6980O c.3690C>G [id number]:C:G 4.9% Substitution - Missense Tier 3 gnomAD: N/A ClinVar: N/A The following amplicons demonstrated low coverage (please see test details or consult laboratory for more information): BCL11B, ELF3, HMGA2, IRF4, MAP2K2, PAX3, PDCD1, PDGFB, RAG1, REL, RXRA, SETD2, SNP, SOCS2, STK11 Methodology: Genomic DNA is isolated from fixed tissue, fragmented and hybridized to exonic probes by in-solution target capture to enrich coding sequences prior to library construction and DNA sequencing by the Illumina method. The analysis pipeline includes GATK 4.0, MuTect2 and SAMtools software. This panel assesses only for nucleotide changes and smaller size indel variants in the tested areas of these genes that are above the usual detection sensitivity, namely 5-10% VAF for single nucleotide variants, small duplications, insertions and deletions. Mutations at lower VAF may be reported if variant call features/sequence quality is acceptable but not below the lower limit of assa (more content not included)... Performed By: #### N GS2 #### [facility] (DEFAULT) [address] [place] [address] Method/Limitations: Normal [facility] Comment on above: Result Comment: Hist ologic section(s) were reviewed by a molecular pathologist to assess adequacy and choose area for analysis. Germline as well as somatic cancer-associated variants may be detected by this panel. If indicated by results, further referral for genetic consultation is recommended. Mutation level indicates the number of probable somatic variants detected and is scaled to the lab-specific percentile score seen with the category of tumor (NSCLC or glioma). A (high) result corresponds to the top quartile, low to the bottom quartile and mid-range to the middle two. Microsatellite instability (MSI) status is inferred from the pattern of microsatellites at 94 genomic regions as assessed by mSINGS software. MSI is reported as positive (which approximately corresponds to MSI-high status) or negative. MSI-low is not determined in this assay. Discordances with PCR-based methods may occur in up to 5% of cases. This assay provides limited DNA-based translocation detection using intron tiling of selected targets (see website for list). Detection sensitivity, using Babybe and CRESCEL software, is approximately 70% compared to FISH. Additional testing may be useful if a particular gene translocation is not detected but clinically relevant. This assay provides limited copy number (CN) assessment of selected loci (e.g. MET and TP53) using the CNVkit tool. Correlation with FISH amplification cutoffs is approximately 80-90%. Loss of expression of TP53 can be due to inactivating mutations or deletion/SHONDA as well as other mechanisms not assessed here so immunohistochemical levels may not correlate with the result above. With this test code, the ordering clinician is provided with an interpretation by a board-certified molecular pathologist providing guidance on mutation significance, integrating genetic test results with other laboratory testing, and review of morphologic/histologic material, if available. See [email or web address] for gene list and the methodology and limitations for other tumor genomic features reported This test was developed and its performance determined by the [facility] the [facility] at [address] [place] [address] under the medical direction of Jose Yao MD, PhD. It has not been cleared or approved by the U.S. Food and Drug Administrations. Since FDA (U.S. Food and Drug Administration) is not required for clinical use of this test, this laboratory has established and validated the test's accuracy and precision, pursuant to the requirement of CLIA '88 Performed By: #### N GS2 #### [facility] (DEFAULT) [address] [place] [address] Reviewed by Girish Wolfe MD [facility] Comment on above: Performed By: #### N GS2 #### [facility] (DEFAULT) [address] [address] Tissue Source Pelvis, mass, excision Normal [facility] Comment on above: Performed By: #### N GS2 #### [facility] (DEFAULT) [address] [place] [address] Translocation Status No pathogenic chrom osomal translocations detected in limited panel assessed by intron tiling in tumor genomic DNA. Normal [facility] Comment on above: Performed By: #### N GS2 #### [facility] (DEFAULT) [address] [place] [address] CT Chest, Abd, Pel w/Contras ton 03-26-2025 CT Chest, Abd, Pel w/Contrast [facility] [address] [place], [place] [address] CT Chest, Abd, Pel w/Contrast MR#: [id number] Acct: [id number] Name: UZMA MCDONALD Rep #: [id number] : 1970 F 54 From: Benjy carbone MD PCP: Dr. David Fink MD Status: REG CLI Study: CT Chest, Abd, Pel w/Contrast Date of Exam: Exam# [id number] Ordering Dr: Imani Persaud MD PROCEDURE: CT CHEST, ABD, PEL W/CONTRAST 03/26/2025 REASON FOR EXAM: STAGING; IV AND ORAL CONTRAST TECHNIQUE: Chest, abdomen and pelvis CT with intravenous contrast. Coronal and Sagittal reconstruction series were provided. One or more dose reduction techniques were used (e.g., Automated exposure control, adjustment of the mA and/or kV according to patient size, use of iterative reconstruction technique. PATIENT PREPARATION: Per protocol ORAL CONTRAST TYPE: None. AMOUNT: mL CONTRAST: Omnipaque 350 VOLUME: 100mL no provided gauge IV COMPARISON: CT abdomen and pelvis 01/08/2025 FINDINGS: CT CHEST: Hardware: None Lymph nodes: No suspicious adenopathy. Heart and Vasculature: Normal cardiac size. Moderate coronary artery calcifications. Pulmonary arteries and thoracic aorta are unremarkable. Lungs and Airways: Central airways are patent without endobronchial lesions. Patchy opacities in the lingula and left lower lobe, compatible with atelectasis. 4 mm indeterminate left lower lobe nodule (series 6, image 73). Additional 4 mm right middle lobe nodule (series 6, image 65). Otherwise, no focal consolidation. No pneumothorax. No pleural effusion. Bones: No suspicious osseous lesions. Chest wall is unremarkable. 4 mm right thyroid lobe low-attenuation nodule. CT ABDOMEN/PELVIS: Liver: Mild hepatic steatosis. No focal lesion. Gallbladder: No ductal dilation. Status post cholecystectomy. Spleen: Splenomegaly, craniocaudal length 15.1 cm. No focal lesion. Pancreas: Normal size without evidence of mass surrounding inflammation or ductal dilation. Adrenals: Unremarkable Kidneys: 18 mm left renal pelvis obstructing calculus with mild hydronephrosis. Several other bilateral nonobstructing calculi. Homogeneous enhancement. No suspicious mass Bladder: 3 mm calculus at the left UVJ/posterior urinary bladder wall. Reproductive Organs: Status post hysterectomy and resection of the previously noted pelvic mass.. Soft tissue nodules within the hysterectomy bed with mild enhancement (series 604 images 79-71). The larger of the nodule measures 12 mm. Bowel: Stomach is unremarkable. No bowel dilation or wall thickening. Colonic diverticulosis without diverticulitis. Moderate colonic stool. Contrast is noted throughout the small bowel. Appendix: Normal appendix. Lymph nodes: Unremarkable. Vasculature: Mild diffuse atherosclerotic calcifications are noted. Peritoneum / Retroperitoneum: 14 mm soft tissue lesion left anterior pelvis (series 3 image 90 Bones: No suspicious osseous lesions. Soft tissue: Skin thickening anterior pelvic wall, from recent surgery. CT/CT Chest, Abd, Pel w/Contrast IMPRESSION: 1. Few scattered less than 6 mm indeterminate pulmonary nodules. Otherwise, no evidence of metastatic disease in the thorax. 2. Status post hysterectomy and resection of previously noted mass. Small indeterminate soft tissue nodules noted within the anterior pelvic mesentery and hysterectomy bed. These may represent sequela of postoperative changes. However, peritoneal carcinomatosis can not be excluded. Attention on follow-up is recommended. 3. 18 mm left renal pelvis obstructing calculus with mild hydronephrosis. Multiple other nonobstructing calculi. 4. 3 mm left UVJ/posterior urinary bladder wall calculus. Reading Location: [facility] CC: Dr. Imani Persaud MD; Dr. David Fink MD Plant Control Aide: Signed Normal [facility] SURG PATH REQUESTon 03-26-20 Case Report Normal [facility] Comment on above: Result Comment: Surg ical Pathology Report Case: [id number] Authorizing Provider: Christopher Cunningham MD Collected: 03/26/2025 11:00 AM Ordering Location[facility] Received: 03/26/2025 10:59 AM [place] Pathologist: Alexandra Lan MD Specimen: SURG PATH, A) Pelvic, pelvic mass; B) Pelvic, pelvic mass #2; C) Omentum, resection, omentum; D) Ovary, left, left ovary Performed By: #### S URGP #### [facility] (DEFAULT) [address] [place] [address] Diagnosis Comments Normal [facility] Comment on above: Performed By: #### S URGP #### [facility] (DEFAULT) [address] [place] [address] Gross Description Normal [facility] Comment on above: Result Comment: The following material(s) are received from [facility], [address] [place] [address] with an identifying Surgical Pathology Report: 28 H&E and 8 non-H&E slides labeled [id number]. The [facility] Surgical Pathology Report [id number] and [facility] Surgical Pathology Report [id number] are included for review. Subsequently received from the same facility on March 29, 2025, is/are 1 paraffin block(s) marked [id number] (A7), which is/are submitted to [facility] Histology/IHC Laboratory for re-cutting and additional staining. Outside materials are returned in 60 days under separate cover with our number recorded on them. Grosser for this case was: [place] Performed By: #### S URGP #### [facility] (DEFAULT) [address] [id number] Microscopic Description Normal [facility] Comment on above: Result Comment: A mi croscopic examination was performed. All controls show appropriate reactivity. All immunohistochemistry (IHC), in situ hybridization (DOUGLAS), and histochemical tests were developed by and are performed at the [facility] Clinical Laboratory, Histology and IHC Lab, [address] [place] [address]. All Immunofluorescent (IF) tests were developed by and are performed at the [facility], Renal Division, [address] [place] [address], [place] [address]. All tests reported here, except for PD-L1, have not been cleared by or approved by the US Food and Drug Administration (FDA). The laboratory is regulated under CLIA as qualified to perform high-complexity testing. The tests are used for clinical purposes. They should not be regarded as investigational or for research. Performed By: #### S URGP #### [facility] (DEFAULT) [place] [address] Pathologic Diagnosis Normal [facility] Comment on above: Result Comment: Outs erika Slides [id number] (01/26/25) A. 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 Extensive genomic complexity noted including homozygous deletion of PDCD1 and adjacent [id number] sequences, among many chromosomal segmental losses/gains. Low tumor mutation burden with high genomic complexity is consistent with a high-grade sarcoma. Overall findings support the above diagnosis. B. 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 Omentum, omentectomy: Negative for sarcoma D. Ovary, left, oophorectomy: Negative for sarcoma Ovary with no significant pathologic changes Comment: Concurrently received and reviewed hysterectomy specimen with the diagnosis of uterine leiomyomas. Dr. Grijalva has reviewed district sales representative slides. at 2313 EDT Performed By: #### S URGP #### [facility] (DEFAULT) [address] [address] Professional Interpretation Performed at: [facility] Comment on above: Result Comment: [facility] For Immediate Release to Patient's MyChart? Yes [address] [address] Performed By: #### S URGP #### [facility] (DEFAULT) [address] [address] Surgery Visit Reporton 03-26 Surgery Visit Report [facility] [address] [place] [address] OFFICE VISIT Date of Service: 03/26/25 MR#: [id number] Acct: [id number] Name: UZMA MCDONALD Rep #: [id number] : 1970 Provider: Dr. Theo gunter MD Age/Sex: 54/F Location: [facility] Status: Signed Intake Vital Signs 02/26/25 11:18 03/26/25 13:32 Height 5 ft 7 in Weight: 223 lb 2 oz 225 lb BMI 34.9 BP 116/75 121/80 H Blood Pressure Location Lt brachial Lt brachial Position Sitting Sitting Respiration 18 17 Pulse 76 96 Pulse Source Monitor Monitor Temp 98.5 F Pulse Oximetry (%) 96 95 Oxygen Delivery Method room air room air Intake Visit Reasons: PORT PLACEMENT Chief Complaint: port placement Is patient in pain?: No Allergies No Known Allergies Allergy (Verified 03/26/25 13:33) Medications ???Medication ???Instructions ???Recorded ???Confirmed ???Type aspirin 81 mg chewable tablet 81 mg PO DAILY@0800 hx of mi 06/0903/26/25 History atorvastatin 80 mg tablet 80 mg PO QHS cholesterol #90 tabs 11/29/23 03/26/25 Rx famotidine 20 mg tablet (Pepcid) 20 mg PO BID 11/29/23 03/26/25 His tory sertraline 50 mg tablet (Zoloft) 50 mg PO DAILY 11/29/23 03/26/25 H istory [facility] Medical History (Updated 03/26/25 @ 13:32 by Isabella Hylton) Primary leiomyosarcoma of pelvis Postoperative pain Anemia due to chronic blood loss Menorrhagia Uterine fibroid Wears dentures Shortness of breath on exertion History of blood transfusion High cholesterol Loss of consciousness Gastric reflux Smoker Cardiology follow-up encounter History of echocardiogram Cardiac murmur Nicotine dependence History of non-ST elevation myocardial infarction (NSTEMI) (06/2014) Essential (primary) hypertension Atherosclerosis of coronary artery without angina pectoris Kidney stones Surgical History History of hysterectomy Cataract extraction status of right eye Hx of tubal ligation History of cholecystectomy History of coronary artery stent placement (03/31/21) Family History Father Kidney disease Aunt Cancer paternal Other Heart disease Social History household members: spouse housing: house Smoking Status: Current every day smoker tobacco type: cigarettes Tobacco: How many years used: 39 alcohol intake: never substance use type: does not use caffeine: Yes Type: coffee Number of servings: 1 and tea Number of servings: 2 HPI HPI HPI: Patient is a 54-year-old female here for port placement for chemotherapy. ROS General General: Yes weight change; No appetite, fatigue, colon cancer, breast cancer or weakness HEENT HEENT: Yes eye surgery; No difficulty swallowing, eye injury, swollen glands or hoarseness Endo Endocrine: No thyroid disease, diabetes mellitus, thyroid cancer, Hair loss, heat intolerance or cold intolerance Skin Skin: No rash or changing moles Musc Musculoskeletal: Yes back problems; No arthritis, rheumatoid arthritis, gout or joint pain Cardio Cardiovascular: Yes high blood pressure, heart attack and heart stent; No murmur, pacemaker, heart disease, atrial fibrillation, palpitations, shortness of breath with exertion or chest pain Additional Details: Blood pressure has been good, meds on hold at this time Psych Psychiatric: No depression, anxiety or hearing voices Resp Respiratory: No shortness of breath, No sleep apnea, Yes cough, No COPD, No asthma, No emphysema and No wheezing Gastro Gastrointestinal: No abdominal pain, No nausea or vomiting, No diarrhea, No constipation, No blood in stool, Yes acid reflux, No hemorrhoids, No ulcers, No gallbladder problem and No black,tarry stools Benjamin Hematologic: No blood thinners, No blood disorders, No bleeding, No anemia and No blood clots Neuro Neurologic: No system reviewed and no additional complaints, except as documented, No as per HPI, No abnormal gait, No abnormal hearing, No abnormal movements, No abnormal speech, No behavioral whipple ges, No burning sensations, No confusion, No convulsions, No disequilibrium, No dizziness, No localized weakness, No frequent falls, No headache(s), No lack of coordination, No loss of vision, No memory loss, No numbness, No other visual disturbances, No radicular pain, No restless legs, No sensory deficit, No syncope, No tingling, No tremor(s), No weakness and No other Exam Const General: cooperative Orientation: alert and oriented x3 HENMT Head: normal to inspection Neck Neck: normal visual inspection and full ROM Chest Chest palpation inspection: normal inspection of the chest Resp Effort Inspection: (more content not included)... Normal [facility] Oncology Visit Reporton 02-13 Oncology Visit Report [facility] [address] [place] [address] OFFICE VISIT Date of Service: 02/26/25 1118 MR#: [id number] Acct: [id number] Name: AMELIAMICHAELUZMASILVA NEGRETE Rep #: [id number] : 1970 From: Imani Persaud MD Age/Sex: 54/F Location: [facility] Status: Signed HPI Subjective Date of Service 02/26/25 Chief Complaint Ovarian cancer History of Present Illness 54-year-old female past medical history notable for status post , supracervical abdominal hysterectomy, bilateral salpingectomy and right oophorectomy for multiple uterine fibroids and excessive menstrual bleeding causing iron deficiency anemia and May 2022. The patient was seen in [facility] emergency room January 08, 2025 with urinary symptoms that proved to be due to a UTI which improved with a course of antibiotics. An incidental left pelvic mass was seen on CT scan. January 08, 2025 CT abdomen and pelvis: FINDINGS: Lung bases: Clear Liver: Diffuse fatty infiltration. Enlarged Gallbladder: Surgically absent. Spleen: Normal size. Pancreas: Unremarkable. Adrenals: Unremarkable. Kidneys: Left peripelvic fat stranding with 14 mm nonobstructive calculus. Nonobstructive calculi are also noted in the left kidney.. Bladder: Unremarkable. Reproductive Organs: Prior hysterectomy. Adnexal regions are unremarkable. Bowel: No bowel obstruction. Appendix: Normal. Lymph nodes: There is a heterogeneously enhancing mass in the left pelvis measuring 7.3 x 8.1 cm. No other corresponding lymphadenopathy is noted. Vasculature: Mild diffuse atherosclerotic calcifications are noted. Peritoneum / Retroperitoneum: No ascites. No free air. Bones: Unremarkable. IMPRESSION: 1. Heterogeneous left pelvic mass concerning for neoplasm 2. Left pyelonephritis with nonobstructive stone. Nonobstructive calculi also noted in the right kidney. 3. Hepatic steatosis and hepatomegaly January 12, 2025 transvaginal ultrasound: IMPRESSION: Status post hysterectomy and right oophorectomy. Heterogeneous enlargement of the left ovary with blood flow. This corresponds with the CT findings. January 26, 2025 patient underwent exploratory laparotomy, left oophorectomy, removal of pelvic mass, omentectomy. Pathology: A. 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 B. Pelvic mass excision: High-grade sarcoma with myogenic differentiation, favor leiomyosarcoma. C. Omentum, omentectomy benign adipose tissue negative for malignancy. D. Ovary left oophorectomy: Ovary with no significant pathologic changes. Comment: Sections from the pelvic mass show a highly cellular spindled and focally epithelioid malignant neoplasm with marked cytologic atypia, brisk mitotic activity and tumor cell necrosis. IHC at [facility] positive for SMA, negative for desmin, STAT6, pancytokeratin, S100 and CD34. Additional IHC done at [facility] showed negative Desmin, negative Caldesmon, ER diffuse strong positive, ALK negative, p53 aberrant (strong diffuse), PTEN retained staining, RB1 loss of staining, HMB45 negative. Again the overall morphologic and IHC features consistent with a high-grade sarcoma with a diagnosis of leiomyosarcoma is favored. The site of origin of this tumor is difficult to determine but the presence of ER staining raises the possibility of m???llerian origin. January 26, 2025 peritoneal washings no malignant cells identified. [facility] Medical History (Updated 02/26/25 @ 11:[address] Imani Persaud MD) Primary leiomyosarcoma of pelvis Postoperative pain Anemia due to chronic blood loss Menorrhagia Uterine fibroid Wears dentures Shortness of breath on exertion History of blood transfusion High cholesterol Loss of consciousness Gastric reflux Smoker Cardiology follow-up encounter History of echocardiogram Cardiac murmur Nicotine dependence History of non-ST elevation myocardial infarction (NSTEMI) (06/2014) Essential (primary) hypertension Atherosclerosis of coronary artery without angina pectoris Kidney stones Surgical History History of hysterectomy Cataract extraction status of right eye Hx of tubal ligation History of cholecystectomy History of coronary artery stent placement (03/31/21) Family History Father Kidney disease Aunt Cancer paternal Other Heart disease Social History household members: spouse housing: house Smoking Status: Current every day smoker tobacco type: cigarettes Tobacco: How many years used: 39 alcohol intake: never substance use type: does not use caffeine: Yes Type: coffee Number of servings: 1 and tea Number of servings: 2 ROS ROS Narrative Recovered (more content not included)... [facility] 02-16-2025 36 Pt called with path, to see Med Onc . Rec chemo. 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 Antonio willard at [phone] via [employer]. Confirmation scanned within media [facility] 36 ----- Message from Reny Grady MD sent at 02/14/2025 3:41 PM EDT ----- Plz fax to Dr Lopez at [facility] ----- Message ----- From: [employer] User[employer]erie Sent: 01/31/2025 1:18 PM EDT To: Darvin Grady MD [facility] 02-14-[address] Miguel A luke, Called Dr Persaud's office at [facility] and provided recommendation for gemzar/taxotere for leiomyosarcoma. Dr Grady requested they send patient back to see him after chemo is completed. He does not need to see her before then. Called patient and informed her of same. She verbalized understanding and agreement with plan. 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 female 2 weeks s/p Exploratory laparotomy, left oophorectomy, removal of pelvic mass, omentectomy on 01/26/25. Pathology returned with: Final Diagnosis A. PELVIS, MASS, EXCISION: - HIGH-GRADE SARCOMA WITH MYOGENIC DIFFERENTIATION, FAVOR LEIOMYOSARCOMA: SEE COMMENT. B. PELVIS, MASS #2, EXCISION: - HIGH-GRADE SARCOMA WITH MYOGENIC DIFFERENTIATION, FAVOR LEIOMYOSARCOMA: SEE COMMENT. C. OMENTUM, OMENTECTOMY: - BENIGN ADIPOSE TISSUE, NEGATIVE FOR MALIGNANCY D. OVARY, LEFT, OOPHORECTOMY: - OVARY WITH NO SIGNIFICANT PATHOLOGIC CHANGES Comment: Given the uncertain origin of this malignancy, an attempt will be made to retrieve the patient's prior hysterectomy pathology slides to review with the synoptic be reported in addendum. This case was sent to the [facility] with the above diagnosis for parts A and B rendered by Dr. Pierce. Below is Dr. Pierce's comment. 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 Immunochemical stains performed by [facility] [employer] and submitted for review show that the tumor cells are positive for SMA and negative for desmin, STAT6, pancytokeratin, S100 and CD34. Immunochemical stains were performed at the [facility] with the following results: - Desmin: Negative - H Caldesmon: Negative - ER: Diffuse strong positive - ALK: Negative - P53: Aberrant (strong diffuse) - PTEN: Retained staining - RB1: Loss of staining - HMB45: Negative The overall morphologic and immunophenotypic features are those of a high-grade sarcoma and a diagnosis of a leiomyosarcoma is favored. Per report, the patient has a history of a supracervical hysterectomy with right salpingo-oophorectomy, but further details are not available to us. Site of origin of the tumor in the current specimen is difficult to determine from this material, but the presence of the ER stain raises the possibility of a m?llerian origin. Clinical radiographic correlation is required. Selected slides reviewed with gynecologic pathology consensus conference on 02/13/[address] Rahman, Filiberto and Williams agree with the diagnosis. HISTORY OF PRESENT ILLNESS: Uzma Mcdonald is a very pleasant 54 y.o. female with the following oncologic history: Oncology History No history exists. INTERVAL HISTORY: Overall doing well since surgery. She is not having any pain. Feels good overall. Denies signifcant pain, bleeding. Tolerating regular diet, denies N/V. Denies issues with BM or urination. ECOG PS 0 ROS: 12 point review of systems performed, pertinent items are noted in HPI; all other review of systems were negative. MEDICATIONS: Current Outpatient Medications Medication Sig Dispense Refill aspirin 81 MG EC tablet Take 81 mg by mouth daily. atorvastatin (Lipitor) 40 MG tablet Take 40 mg by mouth daily. clopidogrel (Plavix) 75 MG tablet Take 75 mg by mouth daily. docusate sodium (Colace) 100 MG capsule Take 1 capsule (100 mg) by mouth 2 times daily. 60 capsule 0 famotidine (Pepcid) 20 MG tablet Take 20 mg by mouth 2 times daily. losartan (Cozaar) 25 MG tablet Take 25 mg by mouth daily. metoprolol tartrate (Lopressor) 25 MG tablet Take 25 mg by mouth twice a day. sertraline (Zoloft) 50 MG tablet Take 50 mg by mouth daily. No current facility-administered medications for this visit. VITAL SIGNS: There were no vitals taken for this visit. No data recorded PHYSICAL EXAM: General: Alert and oriented. in no acute distress. Able to ambulate on and off the exam table without difficulty. Heart: Regular rate Lungs: Easy respirations Abdomen: Soft, Non-tender, non-distended. Skin: Yeast rash under abdominal fold just above mons with some areas of denuded skin. Well healed surgical incision without erythema, induration, or drainage. Extremities: No cyanosis, clubbing, or edema Mental: Mood and affect appropriate for situation Pelvis: Def DIAGNOSTICS: I reviewed the imaging studies and agree with the interpretation as recorded. I reviewed the pertinent laboratory and diagnostic data. ASSESSMENT/PLAN: S/P Xlap left oophorectomy, removal of pelvic mass, omentectomy: - Doing well post-op - Reviewed final pathology and plan for video visit with Dr Grady on Wednesday to discuss treatment plan - pt would like to get chemo at [facility] infusion center near her house - Discussed some chemo basics (infection prevention) - Diflucan and nystatin cream sent to pt's pharmacy for rash, educated pt on use - Ok to resume normal activities, advised her to ease back into things I explained diagnosis and treatment plan; patient expressed understanding and was in agreement with the plan. Ashok Herbert APRN - JAIRO I personally spent over half of (more content not included)... Normal [facility] SURGICAL PATHOLOGY REFERENCE LAB CONSULTon 02-08-2025 AP DISCLAIMER Normal [facility] Comment on above: Order Comment: Speci men Type: FORMALIN-FIXED PARAFFIN-EMBEDDED TISSUE SPECIMENOrdering Facility: [facility] Address: C/O [facility], DEPT OF PATHOLOGY, [place] [address] Result Comment: Abdullahi kahn Developed Test (LDT) Disclaimer: Performance characteristics of immunohistochemical, immunofluorescent, and chromogenic in-situ hybridization tests have been determined by the performing laboratory within [facility]'s Jimbo Narayan Pathology and Laboratory Medicine Department ([facility], [facility], [facility], [facility], [facility], [facility], or [facility]) in a manner consistent with CLIA requirements. One or more of these tests may not have been cleared or approved by the FDA. [facility] is regulated under CLIA as qualified to perform high-complexity testing. These tests are used for clinical purposes. These should not be regarded as investigational or for research. Positive and negative controls stain appropriately. Performed By: #### L [id number] ####[facility] [id number] [place] [id number] [facility] CASE REPORT Normal [facility] Comment on above: Order Comment: Speci men Type: FORMALIN-FIXED PARAFFIN-EMBEDDED TISSUE SPECIMENOrdering Facility: [facility] Address: O [facility] DEPT OF PATHOLOGY, [place] [address] Result Comment: Surg ica Pathology Report Case: [id number] Authorizing Provider: Wolf Thorpe MD Collected: 02/08/2025 09:34 PM Ordering Location: [facility] Received: 02/08/2025 09:33 PM [facility] Pathologist: Aviva Pierce MD Specimen: Block(s) and/or Slide(s), 36 SLIDES / 1 BLOCK [id number]; A3 Performed By: #### L [id number] ####[facility] [id number] [place] [id number] [facility] CLINICAL HISTORY CONSULT REQUESTED Normal [facility] Comment on above: Order Comment: Speci men Type: FORMALIN-FIXED PARAFFIN-EMBEDDED TISSUE SPECIMENOrdering Facility: [facility] Address: [facility] DEPT OF PATHOLOGY, [place] [address] Performed By: #### L [id number] ####[facility] [id number] [place] [id number] [facility] DIAGNOSIS COMMENT Normal [facility] Comment on above: Order Comment: Speci men Type: FORMALIN-FIXED PARAFFIN-EMBEDDED TISSUE SPECIMENOrdering Facility: [facility] Address: C/O [facility], DEPT OF PATHOLOGY, [place] [address] Result Comment: Than k you for the opportunity to review this difficult case. 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 Immunohistochemical stains performed by you and submitted for our review show that the tumor cells are positive for SMA and negative for desmin, STAT6, pancytokeratin, S100 and CD34. Immunohistochemical stains were performed at the [facility] with the following results: - Desmin: Negative. - H-caldesmon: Negative. - ER: Diffuse strong positive. - ALK: Negative. - p53: Aberrant (strong diffuse). - PTEN: Retained staining. - RB1: Loss of staining. - HMB45: Negative. The overall morphologic and immunophenotypic features are those of a high grade sarcoma and a diagnosis of leiomyosarcoma is favored. Per report, the patient has a history of supracervical hysterectomy with right salpingo-oophorectomy, but further details are not available to us. The site of origin of the tumor in the current specimen is difficult to determine from this material, but the presence of ER staining raises the possibility of m???llerian origin. Clinical and radiologic correlation is recommended. Selected slides were reviewed at the Gynecologic Pathology consensus conference on 02/13/2025 and Filiberto Murcia and Williams agree with the diagnosis. Performed By: #### L [id number] ####[facility] LABCLIA [id number] [address] FINAL DIAGNOSIS Normal [facility] Comment on above: Order Comment: Speci men Type: FORMALIN-FIXED PARAFFIN-EMBEDDED TISSUE SPECIMENOrdering Facility: [facility] Address: C/O [facility], DEPT OF PATHOLOGY, [place] [address] Result Comment: Revi ew of slides from [facility] ([id number], 01/26/2025) A, B. Pelvic mass, excision: High-grade sarcoma with myogenic differentiation, favor leiomyosarcoma; see comment. at 1504 EDT Performed By: #### L [id number] ####[facility] LABCLIA [id number] [address] FINAL PERFORMING LAB Normal [facility] Comment on above: Order Comment: Speci men Type: FORMALIN-FIXED PARAFFIN-EMBEDDED TISSUE SPECIMENOrdering Facility: [facility] Address: C/O [facility], DEPT OF PATHOLOGY, [place] [address] Result Comment: Diag nostic interpretation performed at: [facility], [facility], [place] [id number] CLIA# [id number] Hardware Test Engineer: Juan Padilla MD Performed By: #### L [id number] ####[facility] LABCLIA [id number] [address] OF [facility] 30on 01-27-2025 30 Problem: Pain - Adul t Goal: Verbalizes/displays adequate comfort level or baseline comfort level Outcome: Progressing Problem: Safety - Adult Goal: Free from fall injury Outcome: Progressing Problem: Discharge Planning Goal: Discharge to home or other facility with appropriate resources Outcome: Progressing Normal [facility] CBC (HEMOGRAM)on 01-27-2025 Erythrocyte distribution width (RBC) [Ratio] 13.0 % Normal 11.5-15.0 [facility] Comment on above: Performed By: #### L [id number] #### Heavy Duty Truck Mechanic: KYREE WEATHERS ([id number]) [facility]) [address] [place] [address] Hematocrit (Bld) [Volume fraction] 28.0 % Low 35.0-47.0 [facility] Comment on above: Performed By: #### L [id number] #### Heavy Duty Truck Mechanic: KYREE WEATHERS ([id number]) [facility]) [address] [place] [address] Hemoglobin (Bld) [Mass/Vol] 9.4 g/dL Low 11.7-16.0 [facility] Comment on above: Performed By: #### L [id number] #### Heavy Duty Truck Mechanic: KYREE WEATHERS ([id number]) [facility]) [address] [place] [address] MCH (RBC) [Entitic mass] 29.2 pg Normal 26.0-34.0 [facility] Comment on above: Performed By: #### L [id number] #### Heavy Duty Truck Mechanic: KYREE WEATHERS ([id number]) [facility]) [address] [place] [address] MCHC 33.6 % Normal 30.5-36.0 [facility] Comment on above: Performed By: #### L [id number] #### Heavy Duty Truck Mechanic: KYREE WEATHERS ([id number]) [facility] ([facility]) [address] [place] [address] MCV (RBC) [Entitic vol] 87.0 fL Normal 77.0-99.0 [facility] Comment on above: Performed By: #### L [id number] #### Heavy Duty Truck Mechanic: KYREE WEATHERS ([id number]) [facility]) [address] [place] [address] Platelet mean volume (Bld) [Entitic vol] 10.4 fL Normal 9.0-12.7 [facility] Comment on above: Performed By: #### L [id number] #### Heavy Duty Truck Mechanic: KYREE WEATHERS ([id number]) [facility]) [address] [place] [address] Platelets (Bld) [#/Vol] 200 10*3/uL Normal 140-440 [facility] Comment on above: Performed By: #### L [id number] #### Heavy Duty Truck Mechanic: KYREE WEATHERS ([id number]) [facility] ([facility]) [address] [place] [address] RBC (Bld) [#/Vol] 3.22 10*6/uL Low 3.80-5.20 [facility] Comment on above: Performed By: #### L [id number] #### Heavy Duty Truck Mechanic: KYREE WEATHERS ([id number]) [facility] ([facility]) [address] [place] [address] WBC (Bld) [#/Vol] 10.4 10*3/uL Normal 3.6-10.7 [facility] Comment on above: Performed By: #### L [id number] #### Heavy Duty Truck Mechanic: KYREE WEATHERS ([id number]) [facility]) [address] [place] [address] CBC panel Auto (Bld)Ordered By: Theo Lopez on 01-27-2025 Erythrocyte distribution width (RBC) [Ratio] 13 % 11.5 - 15.0 % [facility] Hematocrit (Bld) [Volume fraction] 28 % Low 35.0 - 47.0 % [facility] [email or web address] Hemoglobin (Bld) [Mass/Vol] 9.4 g/dL Low 11.7 - 16.0 g/dL [facility] [email or web address] Interpretation and review of laboratory results Abnormal [facility] [email or web address] MCH (RBC) [Entitic mass] 29.2 pg 26.0 - 34.0 pg [facility] [employer] MCHC (RBC) [Mass/Vol] 33.6 % 30.5 - 36.0 % [facility] [email or web address] MCV (RBC) [Entitic vol] 87 fL 77.0 - 99.0 fL [facility] [employer] Platelet mean volume (Bld) [Entitic vol] 10.4 fL 9.0 - 12.7 fL [facility] [employer] Platelets (Bld) [#/Vol] 200 10*3/uL 140 - 440 10*3/uL [facility] [employer] RBC (Bld) [#/Vol] 3.22 10*6/uL Low 3.80 - 5.2 0 10*6/uL [facility] [employer] WBC (Bld) [#/Vol] 10.4 10*3/uL 3.6 - 10.7 10*3/uL [facility] [email or web address] [facility] [email or web address] No Panel InformationOrdered By: Linus Cain on 01-27-2025 P [place] [address] [facility] Work Phone: FL Interval 185 ms [facility] Work Phone: QRS [place] [address] [facility] Work Phone: QRSD Interval 76 ms [facility] Work Phone: QT Interval 372 ms [facility] Work Phone: [phone] QTC Interval 418 ms [facility] Work Phone: [phone] T Wave [place] [address] [facility] Work Phone: [facility] Work Phone: [phone] No Panel Informationon 01-27 Linus Cain MD - 01/27/2025 IMPRESSION: Sinus rhythm Low voltage, precordial leads Poor R wave progression Electronically Signed On 01-27-2025 11:41:44 EDT by Linus Cain [facility] [email or web address] Progress Noteon 01-27-2025 Progress Note ------ -- Attestation signed by Sumaya Marroquin MD at 01/27/2025 6:22 PM Patient seen and examined, agree with resident documentation. Pain minimal, voiding, ambulating, tolerating regular diet without nausea. VS and labs appropriate without concern for acute anemia post-op. Abdomen soft, minimally tender with bandage in place. We discussed discharge instructions and follow-up, questions answered. Sumaya Marroquin MD -- SPACE CONTROL SUPERVISOR Progress Note Please page the [facility] SPACE CONTROL SUPERVISOR ONC Call RES group via Secure Chat for any questions or concerns. Date: 01/27/2025 Time: 6:09 AM Uzma Mcdonald 54 y.o. female , POD#1 s/p ExLap,Removal of Pelvic mass, omentectomy, LSO Patient seen and examined. Pain is controlled. Patient is tolerating oral intake. Barragan was removed this AM, awaiting void. She denies any vaginal bleeding. She is passing flatus. She denies Fever/Chills, Chest Pain, SOB, N/V. Vitals: Vitals: 01/26/25 2145 01/26/25 2158 01/27/25 0105 01/27/25 0546 BP: 113/50 (!) 104/47 104/56 105/56 BP Location: Right arm Right arm Right arm Patient Position: Lying Lying Lying Pulse: 59 58 54 57 Resp: 16 16 16 Temp: 36.2 ?C (97.1 ?F) (!) 35.9 ?C (96.6 ?F) 36.3 ?C (97.3 ?F) TempSrc: Temporal Temporal Temporal SpO2: 94% 98% 94% Weight: Height: Intake/Output: Current Shift: I/O this shift: In: 240 [P.O.:240] Out: 450 [Urine:450] Physical Exam: Gen: NAD, alert and cooperative HEENT: Normocephalic, atraumatic, EOMI, MMM Resp: normal effort Abd: soft, NT/ND, no rebound, no guarding. Incisions: Bandage midline vertical C/D/I Ext: No LE edema, no calf tenderness or swelling Medications: Current Facility-Administered Medications: acetaminophen (Tylenol) tablet 1,000 mg, 1,000 mg, Oral, q8h, Wendie Thompson DO, 1,000 mg at 01/27/25 0509 aspirin EC tablet 81 mg, 81 mg, Oral, Daily, Wendie Thompson DO [Held by provider] clopidogrel (Plavix) tablet 75 mg, 75 mg, Oral, Daily, Wendie Thompson DO famotidine (Pepcid) tablet 20 mg, 20 mg, Oral, BID, Wendie Thompson DO, 20 mg at 01/26/25 2156 losartan (Cozaar) tablet 25 mg, 25 mg, Oral, Daily, Wendie Thompson DO metoprolol tartrate (Lopressor) tablet 25 mg, 25 mg, Oral, BID, Wendie Thompson, naloxone (Narcan) injection 0.4 mg, 0.4 mg, IntraVENous, q5 min PRN, Darvin Grady MD ondansetron ODT (Zofran-ODT) disintegrating tablet 4 mg, 4 mg, Oral, q8h PRN OR ondansetron (Zofran) injection 4 mg, 4 mg, IntraVENous, q6h PRN, Wendie Thompson DO oxyCODONE (Roxicodone) immediate release tablet 5 mg, 5 mg, Oral, q4h PRN OR oxyCODONE (Roxicodone) immediate release tablet 10 mg, 10 mg, Oral, q4h PRN, Wendie Thompson, polyethylene glycol (PEG) 3350 (Miralax) packet 17 g, 17 g, Oral, Daily PRN, Wendie Donna, DO sertraline (Zoloft) tablet 50 mg, 50 mg, Oral, Daily, Wendie Thompson DO simethicone (Mylicon) chewable tablet 80 mg, 80 mg, Oral, q6h PRN, Wendie Thompson DO sodium chloride 0.9 % infusion, 5-250 mL/hr, IntraVENous, PRN, Wendie Thompson, sodium chloride 0.9% (NS) flush 10 mL, 10 mL, IntraVENous, 2 times per day, Wendie Thompson DO, 10 mL at 01/26/252156 sodium chloride 0.9% (NS) flush 10 mL, 10 mL, IntraVENous, PRN, Wendie Thompson, Diagnostics: ECG 12 lead Result Date: 01/26/2025 Sinus rhythm Low voltage, precordial leads Labs: Admission on 01/26/2025 Component Date Value Ref Range Status SODIUM 01/26/2025 136 136 - 145 mmol/L Final POTASSIUM 01/26/2025 3.7 3.5 - 5.1 mmol/L Final Plasma potassium values may be up to 0.5 mmol/L lower than serum values. CHLORIDE 01/26/2025 104 98 - 107 mmol/L Final CARBON DIOXIDE 01/26/2025 22 22 - 29 mmol/L Final UREA NITROGEN 01/26/2025 12 9 - 23 mg/dL Final CREATININE 01/26/2025 0.64 0.57 - 1.11 mg/dL Final GLUCOSE 01/26/2025 129 (H) 74 - 100 mg/dL Final CALCIUM 01/26/2025 9.0 8.4 - 10.2 mg/dL Final ANION GAP 01/26/2025 10 3 - 13 mmol/L Final eGFR 01/26/2025 >90.0 >60.0 mL/min/1.73m*2 Final Calculation based on the Chronic Kidney Disease Epidemiology Collaboration (CKD-EPI) equation refit without adjustment for race Heart Rate 01/26/2025 76 bpm Final QRSD Interval 01/26/2025 76 ms Final QT Interval 01/26/2025 372 ms Final QTC Interval 01/26/2025 418 ms Final P [place] 01/26/2025 53 degrees Final QRS [place] 01/26/2025 56 degrees Final T Wave [place] 01/26/2025 53 degrees Final FL Interval 01/26/2025 185 ms Final Auto WBC 01/26/2025 8.5 3.6 - 10.7 10*3/uL Final RBC 01/26/2025 4.53 3.80 - 5.20 10*6/uL Final Hemoglobin 01/26/2025 13.0 11.7 - 16.0 g/dL Final Hematocrit 01/26/2025 38.2 35.0 - 47.0 % Final MCV 01/26/2025 84.3 77.0 - 99.0 fL Final MCH 01/26/2025 28.7 26.0 - 34.0 pg Final MCHC 01/26/2025 34.0 30.5 - 36.0 % Final RDW 01/26/2025 13.2 11.5 - 15.0 % Final Platele (more content not included)... Normal [facility] Vital signsOrdered By: Alina Cain on 01-27-2025 Heart rate 76 /min bpm [facility] Work Phone: 30on 01-26-2025 30 Problem: Pain - Adul t Goal: Verbalizes/displays adequate comfort level or baseline comfort level Outcome: Progressing Problem: Safety - Adult Goal: Free from fall injury Outcome: Progressing Problem: Discharge Planning Goal: Discharge to home or other facility with appropriate resources Outcome: Progressing Normal [facility] ABO and Rh group Confirm Nom (Bld)on 01-26-2025 ABO group Nom (Bld) A [facility] D Ag Ql (RBC) Positive [facility] BASIC METABOLIC PANELon 01-13 Anion gap [Moles/Vol] 10 mmol/L Normal -13 [facility] Comment on above: Performed By: #### L [id number] #### Heavy Duty Truck Mechanic: KYREE WEATHERS ([id number]) [facility] [address] [place] [address] Calcium [Mass/Vol] 9.0 mg/dL Normal 8.4-10.2 [facility] Comment on above: Performed By: #### L AB15 #### Heavy Duty Truck Mechanic: KYREE WEATHERS ([id number]) [facility] ([facility]) [address] [place] [address] [place] Chloride [Moles/Vol] 104 mmol/L Normal 98-107 [facility] Comment on above: Performed By: #### L AB15 #### Heavy Duty Truck Mechanic: KYREE WEATHERS ([id number]) [facility]) [address] [place] [address] CO2 [Moles/Vol] 22 mmol/L Normal 22-29 [facility] Comment on above: Performed By: #### L AB15 #### Heavy Duty Truck Mechanic: KYREE WEATHERS ([id number]) [facility]) [address] [place] [address] Creatinine [Mass/Vol] 0.64 mg/dL Normal 0.57-1.11 [facility] Comment on above: Performed By: #### L AB15 #### Heavy Duty Truck Mechanic: KYREE WEATHERS ([id number]) [facility]) [address] [place] [address] GLOMERULAR FILTRATION RATE ML/MIN/1.73 SQ M.PREDICTED >90.0 Normal >60.0 [facility] Comment on above: Result Comment: Calc ulation based on the Chronic Kidney Disease Epidemiology Collaboration (CKD-EPI) equation refit without adjustment for race Performed By: #### L AB15 #### Heavy Duty Truck Mechanic: KYREE WEATHERS ([id number]) [facility]) [address] [place] [address] Glucose [Mass/Vol] 129 mg/dL High 74-100 [facility] Comment on above: Performed By: #### L AB15 #### Heavy Duty Truck Mechanic: KYREE WEATHERS ([id number]) [facility]) [address] [place] [address] [place] Potassium [Moles/Vol] 3.7 mmol/L Normal 3.5-5.1 [facility] Comment on above: Result Comment: [facility] potassium values may be up to 0.5 mmol/L lower than serum values. Performed By: #### L AB15 #### Heavy Duty Truck Mechanic: KYREE WEATHERS ([id number]) [facility]) [address] [place] [address] [place] Sodium [Moles/Vol] 136 mmol/L Normal 136-145 [facility] Comment on above: Performed By: #### L AB15 #### Heavy Duty Truck Mechanic: KYREE WEATHERS ([id number]) [facility] ([facility]) [address] [place] [address] Urea nitrogen [Mass/Vol] 12 mg/dL Normal 9-23 [facility] Comment on above: Performed By: #### L AB15 #### Heavy Duty Truck Mechanic: KYREE WEATHERS ([id number]) [facility] ([facility]) [address] [place] [address] BLOOD TYPE AND SCREEN GELon 01-26-2025 ABO GROUPING A Normal [facility] Comment on above: Order Comment: HOLD. Specimen is valid for 3 days - nurse to verify valid specimen Performed By: #### L AB15 #### Heavy Duty Truck Mechanic: KYREE WEATHERS ([id number]) [facility] ([facility]) [address] [place] [address] RH TYPE IN BLOOD Positive Normal [facility] Comment on above: Order Comment: HOLD. Specimen is valid for 3 days - nurse to verify valid specimen Performed By: #### L AB15 #### Heavy Duty Truck Mechanic: KYREE WEATHERS ([id number]) [facility] ([facility]) [address] [place] [address] Basic metabolic 1998 panelon 01-26-2025 Anion gap [Moles/Vol] 10 mmol/L 3 - 13 mmol/L [facility] Calcium [Mass/Vol] 9 mg/dL 8.4 - 10. 2 mg/dL [facility] Chloride [Moles/Vol] 104 mmol/L 98 - 10 7 mmol/L [facility] CO2 [Moles/Vol] 22 mmol/L 22 - 29 mmol/L [facility] Creatinine [Mass/Vol] 0.64 mg/dL 0.57 - 1.11 mg/dL [facility] GFR/1.73 sq M.predicted (S/P/Bld) [Vol rate/Area] - PINF [facility] Comment on above: Calculation based on the Chronic Kidney Disease Epidemiology Collaboration (CKD-EPI) equation refit without adjustment for race Glucose [Mass/Vol] 129 mg/dL High 74 - 100 mg/dL [facility] Interpretation and review of laboratory results Abnormal [facility] Potassium [Moles/Vol] 3.7 mmol/L 3.5 - 5.1 mmol/L [facility] Comment on above: Plasma potassium fredis ues may be up to 0.5 mmol/L lower than serum values. Sodium [Moles/Vol] 136 mmol/L 136 - 145 mmol/L [facility] Urea nitrogen [Mass/Vol] 12 mg/dL 9 - 23 mg/dL [facility] Blood type and Crossmatch pa chantale (Bld)on 01-26-2025 ABO group Nom (Bld) A [facility] Blood group antibody screen GEL Ql Negative [facility] D Ag Ql (RBC) Positive [facility] CBC (HEMOGRAM)on 01-26-2025 Erythrocyte distribution width (RBC) [Ratio] 13.2 % Normal 11.5-15.0 [facility] Comment on above: Performed By: #### L [id number] #### Heavy Duty Truck Mechanic: KYREE WEATHERS ([id number]) [facility]) [address] [place] [address] Hematocrit (Bld) [Volume fraction] 38.2 % Normal 35.0-47.0 [facility] Comment on above: Performed By: #### L [id number] #### Heavy Duty Truck Mechanic: KYREE WEATHERS ([id number]) [facility]) [address] [place] [address] Hemoglobin (Bld) [Mass/Vol] 13.0 g/dL Normal 11.7-16.0 [facility] Comment on above: Performed By: #### L [id number] #### Heavy Duty Truck Mechanic: KYREE WEATHERS ([id number]) [facility]) [address] [place] [address] MCH (RBC) [Entitic mass] 28.7 pg Normal 26.0-34.0 [facility] Comment on above: Performed By: #### L [id number] #### Heavy Duty Truck Mechanic: KYREE WEATHERS ([id number]) [facility]) [address] [place] [address] MCHC 34.0 % Normal 30.5-36.0 [facility] Comment on above: Performed By: #### L [id number] #### Heavy Duty Truck Mechanic: KYREE WEATHERS ([id number]) [facility]) [address] [place] [address] MCV (RBC) [Entitic vol] 84.3 fL Normal 77.0-99.0 [facility] Comment on above: Performed By: #### L [id number] #### Heavy Duty Truck Mechanic: KYREE WEATHERS ([id number]) [facility] ([facility]) [address] [place] [address] Platelet mean volume (Bld) [Entitic vol] 10.4 fL Normal 9.0-12.7 [facility] Comment on above: Performed By: #### L [id number] #### Heavy Duty Truck Mechanic: KYREE WEATHERS ([id number]) [facility] ([facility]) [address] [place] [address] Platelets (Bld) [#/Vol] 227 10*3/uL Normal 140-440 [facility] Comment on above: Performed By: #### L [id number] #### Heavy Duty Truck Mechanic: KYREE WEATHERS ([id number]) [facility] ([facility]) [address] [place] [address] RBC (Bld) [#/Vol] 4.53 10*6/uL Normal 3.80-5.20 [facility] Comment on above: Performed By: #### L [id number] #### Heavy Duty Truck Mechanic: KYREE WEATHERS ([id number]) [facility] ([facility]) [address] [place] [address] WBC (Bld) [#/Vol] 8.5 10*3/uL Normal 3.6-10.7 [facility] Comment on above: Performed By: #### L [id number] #### Heavy Duty Truck Mechanic: KYREE WEATHERS ([id number]) [facility]) [address] [place] [address] CBC panel Auto (Bld)on 01-26 Erythrocyte distribution width (RBC) [Ratio] 13.2 % 11.5 - 15.0 % [facility] Hematocrit (Bld) [Volume fraction] 38.2 % 35.0 - 47.0 % [facility] Hemoglobin (Bld) [Mass/Vol] 13 g/dL 11.7 - 16.0 g/dL [facility] Interpretation and review of laboratory results Normal [facility] MCH (RBC) [Entitic mass] 28.7 pg 26.0 - 34.0 pg [facility] MCHC (RBC) [Mass/Vol] 34 % 30.5 - 36.0 % [facility] MCV (RBC) [Entitic vol] 84.3 fL 77.0 - 99.0 fL [facility] Platelet mean volume (Bld) [Entitic vol] 10.4 fL 9.0 - 12.7 fL [facility] Platelets (Bld) [#/Vol] 227 10*3/uL 140 - 440 10*3/uL [facility] RBC (Bld) [#/Vol] 4.53 10*6/uL 3.80 - 5.2 0 10*6/uL [facility] WBC (Bld) [#/Vol] 8.5 10*3/uL 3.6 - 10.7 10*3/uL [facility] Nursing Noteon 01-26-2025 Nursing Note Meds to Beds deliver ed to patient. Pt declined oxycodone prescription and sent back with Meds to Beds. [facility] Nursing Note Report given to Jenny PACK [facility] Nursing Note Faxed report sheet to [address] Nursing Note Patient family/visit or updated by RN at this time. [facility] Op Noteon 01-26-2025 Op Note Date of surgery 01/26 Preoperative diagnosis pelvic mass obesity Postoperative diagnosis leiomyosarcoma of the pelvis, Procedure exploratory laparotomy with resection of intra-abdominal tumor 10 cm in diameter, left oophorectomy with omentectomy Surgeon Miguel A Anesthesia General Description of findings; there was a large somewhat necrotic vascular mass that was arising from the anterior bladder peritoneum attached to the anterior abdominal wall. This grossly looks like a leiomyosarcoma and frozen section confirmed spindle cell tumor consistent with leiomyosarcoma. There was no other tumor noted inside the abdominal cavity. The uterus right tube and ovary was absent the left ovary was normal. At the completion of the surgery all gross tumor had been removed Description of operation patient identified brought to the operating room and after ministration general anesthetic a Barragan cath was placed exam revealed a hard fixed mass in the anterior pelvis and she underwent an abdominal and perineal prep and drape and a Barragan cath was placed. Antibiotics were given compression stockings were on and running. Her pre-existing midline incision was opened using a scalpel followed by Bovie cautery for the subcutaneous tissue and the fascia. The peritoneal cavity then opened sharply omentum was dissected off the anterior abdominal wall and a vascular mass was encountered directly under the fascia. This was dissected off several areas of sigmoid epiploica, it was dissected off the bladder peritoneum as well as off the pelvic sidewalls. The mass did fracture with resection however, the entire mass was resected. Hemostasis was with several small 3-0 Vicryl [id number]'s in the bladder peritoneum Bovie cautery as well as some hemostatic agent. Infracolic omentectomy was performed using the LigaSure. The abdomen was then explored no other evidence of disease was noted. The left ovary was identified, the left pelvic sidewall was open the left ureter identified the left ovarian vessels were skeletonized above the ureter coagula the Enseal device and divided removing the left ovary. No other disease was noted the abdomen was copiously irrigated. The fascia was then closed using a running #1 PDS in a loop mass closure system after the Max wound retractor was removed the fascia was closed with #1 looped PDS, subcutaneous tissue with interrupted #1 PDS followed by subcuticular 3-0 Monocryl on the skin with Steri-Strips. Blood loss was about 500 cc and she was taken to cover room in stable condition by anesthesia [facility] Op Note Date: 01/26/2025 Loca tion: [facility] OR Name: Uzma Mcdonald, : 1970, Diagnosis Pre-op Diagnosis * Intra-abdominal and pelvic swelling, mass and lump, unspecified site [R19.00] Post-op Diagnosis * Intra-abdominal and pelvic swelling, mass and lump, unspecified site [R19.00] Procedures Laparotomy with resection intra-abdominal tumor 10 cm in diameter, left oophorectomy with omentectomy Surgeons * Darvin Grady - Primary Procedure Summary Anesthesia: General ASA: III Estimated Blood Loss: 500 mL Drains: Urethral Catheter Straight-tip (Active) Catheter Indications Short-term following a surgical procedure (i.e. Urological or Gynecological) or active irrigation 01/26/25 1015 Site Assessment Clean;Skin intact 01/26/25 1015 Collection Container Standard drainage bag 01/26/25 1015 Securement Method Securing device 01/26/25 1015 Catheter Best Practices Drainage tube clipped to bed;Catheter secured to thigh;Tamper seal intact;Bag below bladder;Bag not on floor;Lack of dependent loop in tubing;Drainage bag less than half full 01/26/25 1015 Catheter Status Draining 01/26/25 1015 Specimens ID Source Type Tests Collected By Collected At Frozen? Priority Lab ID 1 Peritoneal Washings Wash NON-GYNECOLOGIC CYTOLOGY Darvin Grady MD 01/26/25 0853 No Description: pelvic washings 2 Pelvic Tissue TISSUE EXAM Darvin Grady MD 01/26/25 0902 Yes STAT Description: pelvic mass 3 Pelvic Tissue TISSUE EXAM Darvin Grady MD 01/26/25 0905 No Routine Description: pelvic mass #2 4 Omentum, Biopsy Tissue TISSUE EXAM Darvin Grady MD 01/26/25 0913 No Routine Description: omentum 5 Ovary, Left Tissue TISSUE EXAM Darvin Grady MD 01/26/25 0928 Routine Description: LEFT OVARY Staff: Mirror Inspector: Dora Castro RN Scrub Person: Daysi Escobar RN Cost to Circ: Sabrina Philip RN Findings: 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 Specimens Collected: Order Name Source Comment Collection Info Order Time BASIC METABOLIC PANEL Blood, Venous Collected By: Segun Kimble RN 01/26/2025 6:33 AM PROTHROMBIN TIME If patient on coumadin within 4 days prior. 01/26/2025 6:33 AM CBC (HEMOGRAM) Blood, Venous Collected By: Segun Kimble RN 01/26/2025 6:33 AM BLOOD TYPE AND SCREEN GEL Blood, Venous HOLD. Specimen is valid for 3 days - nurse to verify valid specimen Collected By: Segun Kimble RN 01/26/2025 6:33 AM HCG QUALITATIVE URINE Urine, Clean Catch Discontinue this order if: 1. patient is older than 55 years old 2. has had a prior hysterectomy 3. today's surgery is for treatment of known or suspected ectopic or loss. 4. patient has a known intrauterine but this is a needed surgery. 01/26/2025 6:33 AM NON-GYNECOLOGIC CYTOLOGY Peritoneal Washings HX OF HYSTERECTOMY. NORMAL LEFT OVARY Collected By: Darvin Grady MD 01/26/2025 8:54 AM TISSUE EXAM Pelvic HX OF HYSTERECTOMY. NORMAL LEFT OVARY Collected By: Darvin Grady MD 01/26/2025 9:04 AM Wound Class: Class I: Clean Blood Products: None Prophylactic Antibiotics: Procedure appropriate prophylactic antibiotic(s) given within 1 hour of surgical incision (two hours if receiving Vancomycin or flouroquinolone) [facility] [id number] 01-23-2025 [id number] Medication List Accurate as of January 23, 2025 9:53 AM. Always use your most recent med list. aspirin 81 MG EC tablet Medication Adjustments for Surgery: Take night before surgery atorvastatin 40 MG tablet Commonly known as: Lipitor Medication Adjustments for Surgery: Take night before surgery clopidogrel 75 MG tablet Commonly known as: Plavix Notes to patient: Have stopped on 01/20 famotidine 20 MG tablet Commonly known as: Pepcid Medication Adjustments for Surgery: Take morning of surgery losartan 25 MG tablet Commonly known as: Cozaar Medication Adjustments for Surgery: Hold morning of surgery metoprolol tartrate 25 MG tablet Commonly known as: Lopressor Medication Adjustments for Surgery: Take morning of surgery sertraline 50 MG tablet Commonly known as: Zoloft Medication Adjustments for Surgery: Take night before surgery CHILD'S NURSE AND PARKING IN THE MAIN DECK ARE FREE DAY OF SURGERY. PARKING IN THE DECK-- AFTER PARKING TAKE THE ELEVATOR TO LEVEL ONE AND TAKE THE BRIDGE TO THE HOSPITAL. GO TO THE RIGHT AND GO AROUND THE CORNER TO THE SAME DAY SURGERY DESK AND CHECK IN THERE. IF GOING IN THE MAIN ENTRANCE-- TURN LEFT AND GO DOWN THE FRANK TO THE H ELEVATORS AND TAKE THEM TO ONE, LEFT OFF THE ELEVATOR AND GO AROUND TO THE SAME DAY DESK AND CHECK IN. Nothing to eat after midnight. You may have clear liquids up until 2 hours before surgery. Which consists of water, apple or cranberry juice, black coffee or tea (no cream ,milk or dairy products). You may have soda , gatorade or powerade and flavored water. Additional Instructions: You may take your prescription pain medication. You may take Tylenol for pain. NO Motrin, ibuprofen or Advil for 24 hours prior to surgery or longer if instructed by your surgeon. NO Aleve or Naprosyn for 5 days prior to surgery or longer if instructed by your surgeon. IF YOU TAKE BLOOD THINNERS OR ASPIRIN:CONTINUE TO TAKE YOUR ASPIRIN Follow any instructions given to you by Dr. GRADY Shower with an antibacterial soap such as Dial or Safeguard THE MORNING OF SURGERY No makeup, lotion, powder, deodorant or body spays. No hair products. Remove all jewelry and leave it at home. Wear loose comfortable clothing to go home in. You may brush your teeth morning of surgery. Do not wear contacts day of surgery. No marijuana (THC), smoking or alcohol for 24 hours prior to surgery. Please arrange for a responsible adult to drive you home after your surgery and that there is a responsible adult with you for 24 hours post discharge. If you have specific questions, please call your surgeon. You will receive a call the day before your surgery to verify your arrival time and date. You will be asked to arrive at least two hours prior to your scheduled surgery time. Please bring your [facility] Surgical folder and medication list with you day of surgery. We encourage you to write down any questions you may have for the surgeon, anesthesiologist, or other members of the surgical team and bring it with you the day of surgery. Please bring photo ID and insurance information. Normal [facility] SHS Cancer Antigen 125on 025 CA 125 11.3 U/mL Normal 0.0-38.1 [facility] Comment on above: Result Comment: [employer] Electrochemiluminescence Immunoassay (ECLIA) Values obtained with different assay methods or kits cannot be used interchangeably. Results cannot be interpreted as absolute evidence of the presence or absence of malignant disease. Performed at: [address] [id number] Sr. Manager: Richi Vargas PhD, Phone: [phone] Performed By: #### L 504.2610, L3100.5000, L100.0100, L500.4050, L100.9950 ####[facility] [address] [place], [address] 36on 01-19-2025 36 PAT 01.23.2025 at 9: 30 am by phone SX: 04.28.2025 at 8:30 am arrival at 6:30 am Post op 02.09.2025 at 11 am Folder and instructions given. Normal [facility] Cancer antigen 125 (CA-125) measurementOrdered By: Imani Persaud on 01-19-2025 CA 125 Antigen 11.3 U/mL 0.0-38.1 [facility] Comment on above: Amy byyd El ectrochemiluminescence Immunoassay(ECLIA)Values obtained with different assay methods or kits cannotbe used interchangeably. Results cannot be interpreted asabsolute evidence of the presence or absence of malignantdisease.Performed at: [employer] [address] [id number] Director: Richi Vargas PhD, Phone: [phone] Cancer antigen 125 (CA-125) measurement 11.3 U/mL 0.0-38.1 [facility] Comment on above: [employer] El ectrochemiluminescence Immunoassay(ECLIA)Values obtained with different assay methods or kits cannotbe used interchangeably. 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 Patient accepted, director medical writing in room during exam Normal [facility] Transvaginal Non-on 01-12-2025 Transvaginal Non- [facility] [address] [place] [address] Transvaginal Non- MR#: [id number] Acct: [id number] Name: UZMA MCDONALD Rep #: [id number] : 1970 F 54 From: Daljit olivares MD PCP: Dr. David Fink MD Status: REG CLI Study: Transvaginal Non- Date of Exam: Exam# [id number] Ordering Dr: Imani Persaud MD PROCEDURE: TRANSVAGINAL NON- REASON FOR EXAM: Pelvic mass on CT scan. TECHNIQUE: Transvaginal pelvic ultrasound COMPARISON: Comparison is made with prior CT scan dated January 08, 2025. FINDINGS: Measurements: Status post hysterectomy. Status post right oophorectomy. Left Ovary: 10.5 cm x 7.8 cm x 7.4 cm with a volume of 318 mL. Left ovary: Diffuse enlargement of the left ovary. It is heterogeneous with increased blood flow. A neoplastic process should be ruled out. No large pelvic mass identified. US/Transvaginal Non- IMPRESSION: Status post hysterectomy and right oophorectomy. Heterogeneous enlargement of the left ovary with blood flow. This corresponds with the CT findings. A neoplastic process should be ruled out. Reading Location: [id number] CC: Dr. Imani Persaud MD; Dr. David Fink MD Plant Control Aide: Signed Normal [facility] Absolute lymphocyte countOrd ered By: Imani Persaud on 01-10-2025 Lymphocytes Auto (Unsp spec) [#/Vol] 1.58 10*3/uL 0.83-4.51 [facility] Absolute neutrophil countOrd ered By: Imani Persaud on 01-10-2025 Neutrophils (Bld) [#/Vol] 5.7 10*3/uL 2.0-7.7 [facility] Automated lymphocyte count a s percentage of total leukocytesOrdered By: Imani Cori on 01-10-2025 Lymphocytes/100 WBC Auto (Unsp spec) 19.3 % 19-41 [facility] BUN/creatinine ratioOrdered By: [facility] Metz[facility]ma on 01-10-2025 Urea nitrogen/Creatinine [Mass ratio] 20.6 mg/mg High 10-20 [facility] Basophil percentageOrdered B y: Imani Cori on 01-10-2025 Basophils/100 WBC (Bld) 0.9 % 0-1 [facility] Bilirubin, totalOrdered By: [facility] on 01-10-2025 Bilirubin [Mass/Vol] 0.43 mg/dL 0.00-1.30 [facility] CBC W/Diff, Automatedon 12-17 Absolute Lymph 1.58 X10 3/uL Normal 0.83-4.51 [facility] Comment on above: Performed By: #### L 504.2610, L3100.5000, L100.0100, L500.4050, L100.9950 ####[facility] [address] [place], [address] Absolute Neut 5.7 X10 3/uL Normal 2.0-7.7 [facility] Comment on above: Performed By: #### L 504.2610, L3100.5000, L100.0100, L500.4050, L100.9950 ####[facility] [address] [place], [address] Basophils/100 WBC (Bld) 0.9 % Normal 0-1 [facility] Comment on above: Performed By: #### L 504.2610, L3100.5000, L100.0100, L500.4050, L100.9950 ####[facility] [address] [place], [address] Eosinophils/100 WBC (Bld) 3.7 % Normal 0-5 [facility] Comment on above: Performed By: #### L 504.2610, L3100.5000, L100.0100, L500.4050, L100.9950 ####[facility] [address] [place], [address] Erythrocyte distribution width (RBC) [Ratio] 13.0 % Normal 11.6-14.6 [facility] Comment on above: Performed By: #### L 504.2610, L3100.5000, L100.0100, L500.4050, L100.9950 ####[facility] [address] [place], [address] Hematocrit (Bld) [Volume fraction] 42.6 % Normal 37-47 [facility] Comment on above: Performed By: #### L 504.2610, L3100.5000, L100.0100, L500.4050, L100.9950 ####[facility] [address] [place], [address] Hemoglobin (Bld) [Mass/Vol] 13.9 g/dL Normal 12.0-15.0 [facility] Comment on above: Performed By: #### L 504.2610, L3100.5000, L100.0100, L500.4050, L100.9950 ####[facility] [address] [place], [address] IG% 0.600 Normal 0.0-0.9 [facility] Comment on above: Result Comment: IG% - Immature Granulocytes (promyelocytes, myelocytes and metamyelocytes) > 1% indicates that a LEFT SHIFT is Present. Performed By: #### L 504.2610, L3100.5000, L100.0100, L500.4050, L100.9950 ####[facility] [address] [place], [address] Lymphocytes/100 WBC (Bld) 19.3 % Normal 19-41 [facility] Comment on above: Performed By: #### L 504.2610, L3100.5000, L100.0100, L500.4050, L100.9950 ####[facility] [address] [place], [address] MCH (RBC) [Entitic mass] 30.1 pg Normal 27.0-32.0 [facility] Comment on above: Performed By: #### L 504.2610, L3100.5000, L100.0100, L500.4050, L100.9950 ####[facility] [address] [place], [address] MCHC (RBC) [Mass/Vol] 32.6 g/dL Normal 32-36 [facility] Comment on above: Performed By: #### L 504.2610, L3100.5000, L100.0100, L500.4050, L100.9950 ####[facility] [address] [place], [address] MCV (RBC) [Entitic vol] 92.2 fL Normal 81-99 [facility] Comment on above: Performed By: #### L 504.2610, L3100.5000, L100.0100, L500.4050, L100.9950 ####[facility] [address] [place], [address] Monocytes/100 WBC (Bld) 6.1 % Normal 0-10 [facility] Comment on above: Performed By: #### L 504.2610, L3100.5000, L100.0100, L500.4050, L100.9950 ####[facility] [address] [place], [address] Neutrophils/100 WBC (Bld) 69.4 % Normal 47-70 [facility] Comment on above: Performed By: #### L 504.2610, L3100.5000, L100.0100, L500.4050, L100.9950 ####[facility] [address] [place], [address] Nucleated RBC (Bld) [#/Vol] 0 10*3/uL Normal 0-5 [facility] Comment on above: Performed By: #### L 504.2610, L3100.5000, L100.0100, L500.4050, L100.9950 ####[facility] [address] [place], [address] Platelet mean volume (Bld) [Entitic vol] 9.9 fL Normal 6.2-12.0 [facility] Comment on above: Performed By: #### L 504.2610, L3100.5000, L100.0100, L500.4050, L100.9950 ####[facility] [address] [place], [address] Platelets (Bld) [#/Vol] 250 10*3/uL Normal 150-450 [facility] Comment on above: Performed By: #### L 504.2610, L3100.5000, L100.0100, L500.4050, L100.9950 ####[facility] [address] [place], [address] RBC (Bld) [#/Vol] 4.62 10*6/uL Normal 4.2-5.4 [facility] Comment on above: Performed By: #### L 504.2610, L3100.5000, L100.0100, L500.4050, L100.9950 ####[facility] [address] [place], [address] RDW SD 43.4 fl Normal 35.1-43.9 [facility] Comment on above: Performed By: #### L 504.2610, L3100.5000, L100.0100, L500.4050, L100.9950 ####[facility] [address] [place], [address] WBC (Bld) [#/Vol] 8.2 10*3/uL Normal 4.4-11.0 [facility] Comment on above: Performed By: #### L 504.2610, L3100.5000, L100.0100, L500.4050, L100.9950 ####[facility] [address] [place], [place], [id number] Carbon dioxide measurementOr dered By: Imani Persaud on 01-10-2025 CO2 [Moles/Vol] 25.5 mmol/L 22.0-29.0 [facility] Chloride measurementOrdered By: [facility] Pers[facility] on 01-10-2025 Chloride [Moles/Vol] 103 mmol/L 96-108 [facility] Comprehensive Metabolic Prof ilon 01-10-2025 CO2 [Moles/Vol] 25.5 mmol/L Normal 22.0-29.0 [facility] Comment on above: Performed By: #### L 504.2610, L3100.5000, L100.0100, L500.4050, L100.9950 ####[facility] [address] [place], [place], [id number] Eosinophil percentageOrdered By: [facility] Pers[facility] on 01-10-2025 Eosinophils/100 WBC (Bld) 3.7 % 0-5 [facility] Erythrocyte distribution wid th ratioOrdered By: [facility] on 01-10-2025 Erythrocyte distribution width (RBC) [Ratio] 13.0 % 11.6-14.6 [facility] Erythrocyte distribution wid th standard deviationOrdered By: Imani Persaud on 01-10-2025 Erythrocyte distribution width (RBC) [Entitic vol] 43.4 fL 35.1-43.9 [facility] Erythrocyte distribution width (RBC) [Ratio] 43.4 fl 35.1-43.9 [facility] GFR/1.73 sq M.predicted leisa g non-blacks MDRD (S/P/Bld) [Vol rate/Area]Ordered By: Imani Persaud on 01-10-2025 Estimated GFR (MDRD) Non-Af Amer 107 >60 [facility] Comment on above: mL/min/1.73m2 CKD-EP I Creatinine Equation (2020) Glomerular filtration rate ( GFR) estimation/1.73 sq m using serum, plasma, or whole bOrdered By: Imani Persaud on 01-10-2025 GFR/1.73 sq M.predicted among non-blacks MDRD (S/P/Bld) [Vol rate/Area] 107 mL/min/{1.73_m2} >60 [facility] Comment on above: mL/min/1.73m2 CKD-EP I Creatinine Equation (2020) Hematocrit Auto (Bld) [Volum e fraction]Ordered By: Imani Persaud on 01-10-2025 Hematocrit (Bld) [Volume fraction] 42.6 % 37-47 [facility] Hemoglobin (Reticulocytes) [ Entitic mass]Ordered By: [facility] on 01-10-2025 Reticulocyte Hemoglobin Equivalent 29.6 pg Low 30-35 [facility] Hemoglobin measurementOrdere d By: Imani Persaud on 01-10-2025 Hemoglobin (Bld) [Mass/Vol] 13.9 g/dL 12.0-15.0 [facility] Immature granulocytes/100 WB C Auto (Bld)Ordered By: [facility] on 01-10-2025 Immature granulocytes/100 WBC (Bld) 0.600 % 0.0-0.9 [facility] Comment on above: IG% - Immature Granu locytes (promyelocytes, myelocytes and metamyelocytes) > 1% indicates that a LEFT SHIFT is Present. Immature reticulocyte fracti onOrdered By: Imani Persaud on 01-10-2025 Immature Reticulocyte Fraction 22.90 % High 3.00-15.90 [facility] LDHon 01-10-2025 LDH 234 U/L Normal 84-246 [facility] Comment on above: Order Comment: 1 Performed By: #### L 504.2610, L3100.5000, L100.0100, L500.4050, L100.9950 ####[facility] [address] [place], [address] Laboratory - Chemistry and C hemistry - challengeOrdered By: Imani Persaud on 01-10-2025 AST [Catalytic activity/Vol] 26 U/L <32 [facility] Lactate dehydrogenase (LDH) measurementOrdered By: Imani Persaud on 01-10-2025 LDH [Catalytic activity/Vol] 234 U/L 84-246 [facility] Lymphocytes Auto (Unsp spec) [#/Vol]Ordered By: Imani Persaud on 01-10-2025 Lymphocytes (Bld) [#/Vol] 1.58 10*3/uL 0.83-4.51 [facility] Lymphocytes/100 WBC Auto (Un sp spec)Ordered By: Imani Persaud on 01-10-2025 Lymphocytes/100 WBC (Bld) 19.3 % 19-41 [facility] MCV (mean corpuscular volume ) determinationOrdered By: [facility] on 01-10-2025 MCV (RBC) [Entitic vol] 92.2 fL 81-99 [facility] Mean corpuscular hemoglobin (MCH) determinationOrdered By: [facility] Cori on 01-10-2025 MCH (RBC) [Entitic mass] 30.1 pg 27.0-32.0 [facility] Mean corpuscular hemoglobin concentration (MCHC) determinationOrdered By: [facility] on 01-10-2025 MCHC (RBC) [Mass/Vol] 32.6 g/dL 32-36 [facility] Mean platelet volume determi nationOrdered By: Imani Persaud on 01-10-2025 Platelet mean volume (Bld) [Entitic vol] 9.9 fL 6.2-12.0 [facility] Monocyte percentageOrdered B y: Imani Persaud on 01-10-2025 Monocytes/100 WBC (Bld) 6.1 % 0-10 [facility] Neutrophil percentageOrdered By: [facility] on 01-10-2025 Neutrophils/100 WBC (Bld) 69.4 % 47-70 [facility] Nucleated red blood cell per centageOrdered By: Imani Persaud on 01-10-2025 Nucleated RBC/100 WBC (Bld) [Ratio] 0 % 0-5 [facility] Oncology Visit Reporton 12-17 Oncology Visit Report [facility] [place] [address] OFFICE VISIT Date of Service: 01/10/25 1259 MR#: [id number] Acct: [id number] Name: UZMA MCDONALD Rep #: [id number] : 1970 From: Imani Persaud MD Age/Sex: 54/F Location: [facility] Status: Signed HPI Subjective Date of Service 01/10/25 Chief Complaint Pelvic mass on CT History of Present Illness 54-year-old female past medical history notable for status post ERA S, supracervical abdominal hysterectomy, bilateral salpingectomy and right oophorectomy for multiple uterine fibroids and excessive menstrual bleeding causing iron deficiency anemia and May 2022. The patient was seen in [facility] emergency room January 08, 2025 with urinary symptoms that proved to be due to a UTI which improved with a course of antibiotics. An incidental left pelvic mass was seen on CT scan. January 08, 2025 CT abdomen and pelvis: FINDINGS: Lung bases: Clear Liver: Diffuse fatty infiltration. Enlarged Gallbladder: Surgically absent. Spleen: Normal size. Pancreas: Unremarkable. Adrenals: Unremarkable. Kidneys: Left peripelvic fat stranding with 14 mm nonobstructive calculus. Nonobstructive calculi are also noted in the left kidney.. Bladder: Unremarkable. Reproductive Organs: Prior hysterectomy. Adnexal regions are unremarkable. Bowel: No bowel obstruction. Appendix: Normal. Lymph nodes: There is a heterogeneously enhancing mass in the left pelvis measuring 7.3 x 8.1 cm. No other corresponding lymphadenopathy is noted. Vasculature: Mild diffuse atherosclerotic calcifications are noted. Peritoneum / Retroperitoneum: No ascites. No free air. Bones: Unremarkable. IMPRESSION: 1. Heterogeneous left pelvic mass concerning for neoplasm 2. Left pyelonephritis with nonobstructive stone. Nonobstructive calculi also noted in the right kidney. 3. Hepatic steatosis and hepatomegaly [facility] Medical History Postoperative pain Anemia due to chronic blood loss Menorrhagia Uterine fibroid Wears dentures Shortness of breath on exertion History of blood transfusion High cholesterol Loss of consciousness Gastric reflux Smoker Cardiology follow-up encounter History of echocardiogram Cardiac murmur Nicotine dependence History of non-ST elevation myocardial infarction (NSTEMI) (06/2014) Essential (primary) hypertension Atherosclerosis of coronary artery without angina pectoris Kidney stones Surgical History History of hysterectomy Cataract extraction status of right eye Hx of tubal ligation History of cholecystectomy History of coronary artery stent placement (03/31/21) Family History (Updated 01/10/25 @ 13:04 by Taniya Jasmine) Father Kidney disease Aunt Cancer paternal Other Heart disease Social History (Updated 01/10/25 @ 13:03 by Taniya Jasmine) household members: spouse housing: house Smoking Status: Current every day smoker tobacco type: cigarettes Tobacco: How many years used: 39 alcohol intake: never substance use type: does not use caffeine: Yes Type: coffee Number of servings: 1 and tea Number of servings: 2 ROS Constitutional Constitutional: Reports systems reviewed and no addt'l complaints, except as documented; Denies fever(s), night sweats or weight loss Eyes Eyes: Reports systems reviewed and no addt'l complaints, except as documented ENT HEENT: Reports systems reviewed and no addt'l complaints, except as documented; Denies mouth lesions Cardiovascular Cardiovascular: Reports systems reviewed and no addt'l complaints, except as documented; Denies chest pain with activity or edema Respiratory/Chest Respiratory/Chest: Reports systems reviewed and no addt'l complaints, except as documented, cough, dyspnea on exertion and wheezing Gastrointestinal Gastrointestinal: Reports systems reviewed and no addt'l complaints, except as documented; Denies change in bowel habits, hematochezia or melena Genitourinary Genitourinary: Reports systems reviewed and no addt'l complaints, except as documented, as per HPI and other Details: No vaginal bleeding ; Denies dysuria or hematuria Musculoskeletal Musculoskeletal: Reports systems reviewed and no addt'l complaints, except as documented; Denies back pain Integumentary Integumentary: Reports systems reviewed and no addt'l complaints, except as documented; Denies new lesions Neurologic Neurologic: Reports systems reviewed and no addt'l complaints, except as documented; Denies focal weakness or paresthesias Psychiatric Psychiatric: Reports systems reviewed and no addt'l complaints, except as documented Endocrine Endocrinology: Reports systems reviewed and no addt'l complaints, except as documented Hematologic/ (more content not included)... Normal [facility] Platelet countOrdered By: Jonatan Persaud on 01-10-2025 Platelets (Bld) [#/Vol] 250 10*3/uL 150-450 [facility] RBC Auto (Bld) [#/Vol]Ordere d By: Imani Persaud on 01-10-2025 RBC (Bld) [#/Vol] 4.62 10*6/uL 4.2-5.4 [facility] Retic Panelon 01-10-2025 IM RET FRACTION 22.90 High 3.00-15.90 [facility] Comment on above: Performed By: #### L 504.2610, L3100.5000, L100.0100, L500.4050, L100.9950 ####[facility] [address] [place], [address] RET-HE 29.6 pg Low 30-35 [facility] Comment on above: Performed By: #### L 504.2610, L3100.5000, L100.0100, L500.4050, L100.9950 ####[facility] [address] [place], [address] Retic Count 2.15 High 0.5-1.5 [facility] Comment on above: Performed By: #### L 504.2610, L3100.5000, L100.0100, L500.4050, L100.9950 ####[facility] [address] [place], [address] Reticulocyte hemoglobin equi valent (RET-He) measurementOrdered By: Imani Persaud on 01-10-2025 Hemoglobin (Reticulocytes) [Entitic mass] 29.6 pg Low 30-35 [facility] Reticulocytes Auto (Bld) [#/ Vol]Ordered By: Imani Persaud on 01-10-2025 Reticulocyte Count 2.15 % High 0.5-1.5 [facility] Reticulocytes/100 RBC (Bld) 2.15 % High 0.5-1.5 [facility] Serum creatinine measurement (mass/volume)Ordered By: Imani Persaud on 01-10-2025 Creatinine [Mass/Vol] 0.6 mg/dL 0.70-1.20 [facility] Serum globulin measurementOr dered By: Imani Persaud on 01-10-2025 Globulin (S) [Mass/Vol] 4.1 g/dL 2.2-4.2 [facility] Serum glucose measurement (m ass/volume)Ordered By: Imani Persaud on 01-10-2025 Glucose [Mass/Vol] 95 mg/dL 70-99 [facility] Serum or plasma alanine del rio otransferase (ALT) measurementOrdered By: Imani Persaud on 01-10-2025 ALT [Catalytic activity/Vol] 20 U/L <35 [facility] Serum or plasma albumin cass urement (mass/volume)Ordered By: Imani Persaud on 01-10-2025 Albumin [Mass/Vol] 3.7 g/dL 3.5-5.0 [facility] Serum or plasma albumin/glob ulin mass ratioOrdered By: Imani Persaud on 01-10-2025 Albumin/Globulin [Mass ratio] 0.9 {ratio} 0.9-2.4 [facility] Serum or plasma alkaline tre sphatase measurementOrdered By: Imani Persaud on 01-10-2025 ALP [Catalytic activity/Vol] 92 U/L 35-104 [facility] Serum or plasma anion gap de termination (moles/volume)Ordered By: Imani Persaud on 01-10-2025 Anion gap [Moles/Vol] 10 mmol/L 5-15 [facility] Serum or plasma calcium cass urement (mass/volume)Ordered By: Imani Persaud on 01-10-2025 Calcium [Mass/Vol] 8.9 mg/dL 7.6-11.0 [facility] Serum or plasma potassium me asurementOrdered By: Imani Persaud on 01-10-2025 Potassium [Moles/Vol] 4.2 mmol/L 3.3-5.1 [facility] Serum or plasma sodium measu rement (moles/volume)Ordered By: Imani Persaud on 01-10-2025 Sodium [Moles/Vol] 138 mmol/L 133-145 [facility] Serum or plasma urea nitroge n measurement (mass/volume)Ordered By: Imani Cori on 01-10-2025 Urea nitrogen [Mass/Vol] 12 mg/dL 4-19 [facility] Total proteinOrdered By: Lonnie mcgraw Cori on 01-10-2025 Protein [Mass/Vol] 7.8 g/dL 5.9-8.4 [facility] Urine Cultureon 01-10-2025 [facility] Mixed Gram Positive Organisms Mcdonald Count 25,000-50,000 [facility]IX[facility] Mixed contaminants. Submit a new specimen if indicated. Normal [facility] Comment on above: Performed By: #### M 100.2200 ####[facility] [address] [place], [place], [id number] White blood cell (WBC) count Ordered By: Imani Cori on 01-10-2025 WBC (Bld) [#/Vol] 8.2 10*3/uL 4.4-11.0 [facility] Abdomen/Pelvis W IV Cont ONL Yon 01-08-2025 Abdomen/Pelvis W IV Cont ONLY [facility] [address] [place], [place] [address] Abdomen/Pelvis W IV Cont ONLY MR#: [id number] Acct: [id number] Name: UZMA MCDONALD Rep #: [id number] : 1970 F 54 From: Nabil Strickland MD PCP: Dr. David Fink MD Status: REG ER Study: Abdomen/Pelvis W IV Cont ONLY Date of Exam: Exam# [id number] Ordering Dr: Nabil Santos PRODUCT SUPPORT ENGINEER-C PROCEDURE: ABDOMEN/PELVIS W IV CONT ONLY REASON FOR EXAM: Abdominal pain TECHNIQUE: Abdomen and pelvis CT with intravenous contrast. COMPARISON: None. FINDINGS: Lung bases: Clear Liver: Diffuse fatty infiltration. Enlarged Gallbladder: Surgically absent. Spleen: Normal size. Pancreas: Unremarkable. Adrenals: Unremarkable. Kidneys: Left peripelvic fat stranding with 14 mm nonobstructive calculus. Nonobstructive calculi are also noted in the left kidney.. Bladder: Unremarkable. Reproductive Organs: Prior hysterectomy. Adnexal regions are unremarkable. Bowel: No bowel obstruction. Appendix: Normal. Lymph nodes: There is a heterogeneously enhancing mass in the left pelvis measuring 7.3 x 8.1 cm. No other corresponding lymphadenopathy is noted. Vasculature: Mild diffuse atherosclerotic calcifications are noted. Peritoneum / Retroperitoneum: No ascites. No free air. Bones: Unremarkable. CT/Abdomen/Pelvis W IV Cont ONLY IMPRESSION: 1. Heterogeneous left pelvic mass concerning for neoplasm 2. Left pyelonephritis with nonobstructive stone. Nonobstructive calculi also noted in the right kidney. 3. Hepatic steatosis and hepatomegaly One or more dose reduction techniques were used (e.g., Automated exposure control, adjustment of the mA and/or kV according to patient size, use of iterative reconstruction technique). Reading Location: [facility] CC: LONG Santos; Dr. David Fink MD Plant Control Aide: Signed Normal [facility] Absolute lymphocyte countOrd ered By: ED PROVIDER on 01-08-2025 Lymphocytes Auto (Unsp spec) [#/Vol] 1.90 10*3/uL 0.83-4.51 [facility] Absolute neutrophil countOrd ered By: ED PROVIDER on 01-08-2025 Neutrophils (Bld) [#/Vol] 6.6 10*3/uL 2.0-7.7 [facility] Albumin to globulin ratioOrd ered By: ED PROVIDER on 01-08-2025 Albumin/Globulin [Mass ratio] 0.6 {ratio} Low 0.9-2.4 [facility] Automated lymphocyte count a s percentage of total leukocytesOrdered By: ED PROVIDER on 01-08-2025 Lymphocytes/100 WBC Auto (Unsp spec) 20.3 % 19-41 [facility] Basophil percentageOrdered B y: ED PROVIDER on 01-08-2025 Basophils/100 WBC (Bld) 0.6 % 0-1 [facility] Bilirubin Test strip Ql (U)O rdered By: Isaiah Villanueva on 01-08-2025 Bilirubin Ql (U) Negative Negative [facility] Bilirubin, totalOrdered By: ED PROVIDER on 01-08-2025 Bilirubin [Mass/Vol] 1.20 mg/dL High 0.20-1.00 [facility] Comment on above: For patients on eltr ombopag therapy, use of Dimension [place] TBIL is not recommended. Blood urea nitrogen (BUN)/cr eatinine ratioOrdered By: ED PROVIDER on 01-08-2025 Urea nitrogen/Creatinine [Mass ratio] 19.1 mg/mg 10-20 [facility] CBC W/Diff, Automatedon 12-17 Absolute Lymph 1.90 X10 3/uL Normal 0.83-4.51 [facility] Comment on above: Performed By: #### L 100.0100, L500.4050, L501.2450 #### [facility] [address] [place], [address] Absolute Neut 6.6 X10 3/uL Normal 2.0-7.7 [facility] Comment on above: Performed By: #### L 100.0100, L500.4050, L501.2450 #### [facility] [address] [place], [address] Basophils/100 WBC (Bld) 0.6 % Normal 0-1 [facility] Comment on above: Performed By: #### L 100.0100, L500.4050, L501.2450 #### [facility] [address] [place], [address] Eosinophils/100 WBC (Bld) 1.8 % Normal 0-5 [facility] Comment on above: Performed By: #### L 100.0100, L500.4050, L501.2450 #### [facility] [address] [place], [address] Erythrocyte distribution width (RBC) [Ratio] 13.2 % Normal 11.6-14.6 [facility] Comment on above: Performed By: #### L 100.0100, L500.4050, L501.2450 #### [facility] [address] [place], [address] Hematocrit (Bld) [Volume fraction] 43.8 % Normal 37-47 [facility] Comment on above: Performed By: #### L 100.0100, L500.4050, L501.2450 #### [facility] [address] [place], [address] Hemoglobin (Bld) [Mass/Vol] 14.7 g/dL Normal 12.0-15.0 [facility] Comment on above: Performed By: #### L 100.0100, L500.4050, L501.2450 #### [facility] [address] [place], [address] IG% 0.300 Normal 0.0-0.9 [facility] Comment on above: Result Comment: IG% - Immature Granulocytes (promyelocytes, myelocytes and metamyelocytes) > 1% indicates that a LEFT SHIFT is Present. Performed By: #### L 100.0100, L500.4050, L501.2450 #### [facility] [address] [place], [address] Lymphocytes/100 WBC (Bld) 20.3 % Normal 19-41 [facility] Comment on above: Performed By: #### L 100.0100, L500.4050, L501.2450 #### [facility] [address] [place], [address] MCH (RBC) [Entitic mass] 29.8 pg Normal 27.0-32.0 [facility] Comment on above: Performed By: #### L 100.0100, L500.4050, L501.2450 #### [facility] [address] [place], [address] MCHC (RBC) [Mass/Vol] 33.6 g/dL Normal 32-36 [facility] Comment on above: Performed By: #### L 100.0100, L500.4050, L501.2450 #### [facility] [address] [place], [address] MCV (RBC) [Entitic vol] 88.7 fL Normal 81-99 [facility] Comment on above: Performed By: #### L 100.0100, L500.4050, L501.2450 #### [facility] [address] [place], [address] Monocytes/100 WBC (Bld) 6.3 % Normal 0-10 [facility] Comment on above: Performed By: #### L 100.0100, L500.4050, L501.2450 #### [facility] [address] [place], [address] Neutrophils/100 WBC (Bld) 70.7 % High 47-70 [facility] Comment on above: Performed By: #### L 100.0100, L500.4050, L501.2450 #### [facility] [address] [place], [address] Nucleated RBC (Bld) [#/Vol] 0 10*3/uL Normal 0-5 [facility] Comment on above: Performed By: #### L 100.0100, L500.4050, L501.2450 #### [facility] [address] [place], [address] Platelet mean volume (Bld) [Entitic vol] 9.7 fL Normal 6.2-12.0 [facility] Comment on above: Performed By: #### L 100.0100, L500.4050, L501.2450 #### [facility] [address] [place], [address] Platelets (Bld) [#/Vol] 237 10*3/uL Normal 150-450 [facility] Comment on above: Performed By: #### L 100.0100, L500.4050, L501.2450 #### [facility] [address] [place], [address] RBC (Bld) [#/Vol] 4.94 10*6/uL Normal 4.2-5.4 [facility] Comment on above: Performed By: #### L 100.0100, L500.4050, L501.2450 #### [facility] [address] [place], [address] RDW SD 42.5 fl Normal 35.1-43.9 [facility] Comment on above: Performed By: #### L 100.0100, L500.4050, L501.2450 #### [facility] [address] [place], [address] WBC (Bld) [#/Vol] 9.4 10*3/uL Normal 4.4-11.0 [facility] Comment on above: Performed By: #### L 100.0100, L500.4050, L501.2450 #### [facility] [address] [place], [address] Carbon dioxide measurementOr dered By: ED PROVIDER on 01-08-2025 CO2 [Moles/Vol] 29.0 mmol/L 21.0-32.0 [facility] Chloride measurementOrdered By: ED PROVIDER on 01-08-2025 Chloride [Moles/Vol] 100 mmol/L 98-107 [facility] Comprehensive Metabolic Prof ilon 01-08-2025 Albumin [Mass/Vol] 3.0 g/dL Low 3.2-5.0 [facility] Comment on above: Performed By: #### L 100.0100, L500.4050, L501.2450 #### [facility] [address] [place], [address] Albumin/Globulin [Mass ratio] 0.6 {ratio} Low 0.9-2.4 [facility] Comment on above: Performed By: #### L 100.0100, L500.4050, L501.2450 #### [facility] [address] [place], [address] ALK P 98 U/L Normal 45-117 [facility] Comment on above: Performed By: #### L 100.0100, L500.4050, L501.2450 #### [facility] [address] [place], [address] ALT [Catalytic activity/Vol] 23 U/L Normal 13-56 [facility] Comment on above: Performed By: #### L 100.0100, L500.4050, L501.2450 #### [facility] [address] [place], [address] AST [Catalytic activity/Vol] 16 U/L Normal 15-37 [facility] Comment on above: Performed By: #### L 100.0100, L500.4050, L501.2450 #### [facility] [address] [place], [address] Bilirubin [Mass/Vol] 1.20 mg/dL High 0.20-1.00 [facility] Comment on above: Result Comment: For patients on eltrombopag therapy, use of Dimension [place] TBIL is not recommended. Performed By: #### L 100.0100, L500.4050, L501.2450 #### [facility] [address] [place], [address] BUN/CRE 19.1 RATIO Normal 10-20 [facility] Comment on above: Performed By: #### L 100.0100, L500.4050, L501.2450 #### [facility] [address] [place], [address] CA,Total 9.5 mg/dL Normal 8.5-10.1 [facility] Comment on above: Performed By: #### L 100.0100, L500.4050, L501.2450 #### [facility] [address] [place], [address] Chloride [Moles/Vol] 100 mmol/L Normal 98-107 [facility] Comment on above: Performed By: #### L 100.0100, L500.4050, L501.2450 #### [facility] [address] [place], [address] CO2 [Moles/Vol] 29.0 mmol/L Normal 21.0-32.0 [facility] Comment on above: Performed By: #### L 100.0100, L500.4050, L501.2450 #### [facility] [address] [place], [address] Creatinine [Mass/Vol] 0.73 mg/dL Normal 0.55-1.02 [facility] Comment on above: Result Comment: The validity of the calculated GFR GFRAA in patients over 70 years has not been determined. Clinical correlation is essential. Performed By: #### L 100.0100, L500.4050, L501.2450 #### [facility] [address] [place], [address] ECRCL 110.63 ml/min Normal [facility] Comment on above: Performed By: #### L 100.0100, L500.4050, L501.2450 #### [facility] [address] [place], [address] EST GFR - AA 106 mL/min Normal >60 [facility] Comment on above: Result Comment: Afri can [place] GFR Calc Performed By: #### L 100.0100, L500.4050, L501.2450 #### [facility] [address] [place], [address] GAP 7 Normal 5-15 [facility] Comment on above: Performed By: #### L 100.0100, L500.4050, L501.2450 #### [facility] [address] [place], [address] GFR/1.73 sq M.predicted among non-blacks MDRD (S/P/Bld) [Vol rate/Area] 88 mL/min/{1.73_m2} Normal >60 [facility] Comment on above: Result Comment: Non- GFR Calc Performed By: #### L 100.0100, L500.4050, L501.2450 #### [facility] [address] [place], [address] Globulin (S) [Mass/Vol] 5.4 g/dL High 2.2-4.2 [facility] Comment on above: Performed By: #### L 100.0100, L500.4050, L501.2450 #### [facility] [address] [place], [address] Glucose [Mass/Vol] 119 mg/dL High 74-106 [facility] Comment on above: Result Comment: Fast ing Glucose result from 100 to 125 mg/dL suggests IMPAIRED HOMEOSTASIS per A.D.A. criteria. Performed By: #### L 100.0100, L500.4050, L501.2450 #### [facility] [address] [place], [address] Potassium [Moles/Vol] 4.4 mmol/L Normal 3.5-5.1 [facility] Comment on above: Performed By: #### L 100.0100, L500.4050, L501.2450 #### [facility] [address] [place], [address] Sodium [Moles/Vol] 136 mmol/L Normal 136-145 [facility] Comment on above: Performed By: #### L 100.0100, L500.4050, L501.2450 #### [facility] [address] [place], [address] T PROT 8.4 g/dL High 6.4-8.2 [facility] Comment on above: Performed By: #### L 100.0100, L500.4050, L501.2450 #### [facility] [address] [place], [address] Urea nitrogen [Mass/Vol] 14 mg/dL Normal 7-18 [facility] Comment on above: Performed By: #### L 100.0100, L500.4050, L501.2450 #### [facility] [address] [place], [address] Emergency Department Summary on 01-08-2025 Emergency Department Summary [facility] Medical Records Department [address] [place] [address] Emergency Department Summary 01/08/25 MR#: [id number] Acct: [id number] Name: UZMA MCDONALD Rep #: [id number] : 1970 54 From: Nabil Santos PRODUCT SUPPORT ENGINEER-C PCP: Dr. David Fink MD Status:DEP ER Location: ED HPI History of Present Illness Chief Complaint: Complaint Narrative Narrative: Patient is a 54-year-old female with history of kidney stones, hypertension, hyperlipidemia, cardiac stenting who presents to the emergency department for 2 weeks of intermittent abdominal pain, worsening dysuria. Patient states he did get seen by an urgent care, placed on Keflex. She did feel better. Patient states now she has urgency, worsening symptoms, belly pain and is here for evaluation. [facility] Medical History Anemia due to chronic blood loss Atherosclerosis of coronary artery without angina pectoris Cardiac murmur Cardiology follow-up encounter Essential (primary) hypertension Gastric reflux High cholesterol History of blood transfusion History of echocardiogram History of non-ST elevation myocardial infarction (NSTEMI) (06/2014) Kidney stones Loss of consciousness Menorrhagia Nicotine dependence Postoperative pain Shortness of breath on exertion Smoker Uterine fibroid Wears dentures Home Medications ???Medication ???Instructions ???Recorded ???Last Taken ???Type aspirin 81 mg chewable tablet 81 mg PO DAILY@0800 hx of mi 06/0905/23/22 History metoprolol tartrate 25 mg tablet 25 mg PO BID bp #180 tabs 02/24/23 Unknown Rx clopidogrel 75 mg tablet (Plavix) 75 mg PO DAILY hx of mi #90 tabs 06/15/23 Unknown Rx losartan 25 mg tablet 25 mg PO DAILY bp #90 tabs 3 Unknown Rx atorvastatin 80 mg tablet 80 mg PO QHS cholesterol #90 tabs 11/29/23 Unknown Rx famotidine 20 mg tablet (Pepcid) 20 mg PO BID 11/29/23 Unknown Hist ory sertraline 50 mg tablet (Zoloft) 50 mg PO DAILY 11/29/23 Unknown Hi story ondansetron 4 mg disintegrating 4 mg PO Q8H PRN PRN Nausea #10 tab s 01/08/25 Unknown Rx tablet oxycodone-acetaminophen 5 mg-325 1 tab PO Q8H PRN pain 3 days #10 0 01/08/25 Unknown Rx mg tablet (Percocet) tabs sulfamethoxazole 800 1 tab PO BID 10 days #20 tabs 12/17 03/09 Unknown Rx mg-trimethoprim 160 mg tablet (Bactrim DS) Allergy/AdvReac Type Severity Reaction Status Date / Time No Known Allergies Allergy Verified 01/08/25 17:57 Surgical History Cataract extraction status of right eye History of cholecystectomy History of coronary artery stent placement (03/31/21) History of hysterectomy Hx of tubal ligation Social History (Updated 01/08/25 @ 19:27 by Promise Baker) household members: spouse housing: house Smoking Status: Current every day smoker tobacco type: cigarettes alcohol intake: current alcohol intake frequency: holidays/special occasions only substance use type: does not use caffeine: Yes Type: coffee Number of servings: 1 and tea Number of servings: 2 ROS ROS ED ROS Narrative Constitutional: Negative for fever, chills, weight loss, weakness Eyes: Negative for vision loss, vision change, double vision ENT: Negative for any sore throat, ear pain, congestion Cardiovascular: Negative for any chest pain, tightness, palpitations Respiratory: Negative for any cough, sputum production, hemoptysis, dyspnea, dyspnea on exertion, orthopnea Gastrointestinal: Negative for any vomiting, diarrhea, constipation, blood in stool, blood in vomit : Positive for any urinary frequency, dysuria, retention, blood in urine Muscle skeletal: Negative for any neck pain, back pain Neurological: Negative for any headache, syncope, dizziness Skin: Negative for any rashes, itching, abrasions, lacerations Psychiatric: Negative for any depression, anxiety, stress, suicidal ideation, homicidal ideation Hematologic: Negative for any excessive bruising, easy bleeding EXAM Physical Exam Narrative Exam Narrative: Vital signs reviewed. HEET: Head normocephalic atraumatic, TMs clear bilaterally. Posterior pharynx is clear, moist mucous membranes. Nares clear bilaterally. Neck: Supple with no lymphadenopathy or tenderness. No signs of meningismus. Cardiac: Regular rate and rhythm no murmurs gallops or rubs, equal peripheral pulses bilaterally. Respiratory: Lungs clear to auscultation bilaterally. No chest tenderness. Abdomen: Soft, nondistended. No abdominal bruit or pulsatile masses. No hepatosplenomegaly. Patient does have some tenderness worse to the left mid to lower abdomen. Extremities: No peripheral edema, no signs of gross trauma or deformity. Active full range of motion of all extremities. Neuro: Cr (more content not included)... Normal [facility] Eosinophil percentageOrdered By: ED PROVIDER on 01-08-2025 Eosinophils/100 WBC (Bld) 1.8 % 0-5 [facility] Epithelial cells.squamous LM Ql (Urine sed)Ordered By: Isaiah Villanueva on 01-08-2025 Epithelial cells.squamous LM.HPF (Urine sed) [#/Area] 0 /[HPF] 5-10 [facility] Erythrocyte distribution wid th ratioOrdered By: ED PROVIDER on 01-08-2025 Erythrocyte distribution width (RBC) [Ratio] 13.2 % 11.6-14.6 [facility] Erythrocyte distribution wid th standard deviationOrdered By: ED PROVIDER on 01-08-2025 Erythrocyte distribution width (RBC) [Entitic vol] 42.5 fL 35.1-43.9 [facility] Erythrocyte distribution width (RBC) [Ratio] 42.5 fl 35.1-43.9 [facility] Estimated glomerular filtrat ion rate (GFR) AmericanOrdered By: ED PROVIDER on 01-08-2025 Estimated GFR (MDRD) Amer 106 mL/min >60 [facility] Comment on above: GFR Calc Estimation of creatinine tapan aranceOrdered By: ED PROVIDER on 01-08-2025 Estimated Creatinine Clearance Calc 110.63 ml/min [facility] Glomerular filtration rate ( GFR) estimationOrdered By: ED PROVIDER on 01-08-2025 Estimated GFR (MDRD) Non-Af Amer 88 mL/min >60 [facility] Comment on above: Non- GFR Calc GFR/1.73 sq M.predicted among non-blacks MDRD (S/P/Bld) [Vol rate/Area] 88 mL/min/{1.73_m2} >60 [facility] Comment on above: Non- GFR Calc Glucose Ql (U)Ordered By: Ramón Villanueva on 01-08-2025 Urine Glucose (UA) Normal mg/dl Normal [facility] Glucose measurementOrdered B y: ED PROVIDER on 01-08-2025 Glucose [Mass/Vol] 119 mg/dL High 74-106 [facility] Comment on above: Fasting Glucose resu lt from 100 to 125 mg/dL suggests IMPAIRED HOMEOSTASIS per A.D.A. criteria. Hematocrit Auto (Bld) [Volum e fraction]Ordered By: ED PROVIDER on 01-08-2025 Hematocrit (Bld) [Volume fraction] 43.8 % 37-47 [facility] Hemoglobin measurementOrdere d By: ED PROVIDER on 01-08-2025 Hemoglobin (Bld) [Mass/Vol] 14.7 g/dL 12.0-15.0 [facility] Immature granulocytes/100 WB C Auto (Bld)Ordered By: ED PROVIDER on 01-08-2025 Immature granulocytes/100 WBC (Bld) 0.300 % 0.0-0.9 [facility] Comment on above: IG% - Immature Granu locytes (promyelocytes, myelocytes and metamyelocytes) > 1% indicates that a LEFT SHIFT is Present. Ketones Test strip Ql (U)Ord ered By: Isaiah Villanueva on 01-08-2025 Ketones Ql (U) Negative Negative [facility] Laboratory - Chemistry and C hemistry - challengeOrdered By: ED PROVIDER on 01-08-2025 AST [Catalytic activity/Vol] 16 U/L 15-37 [facility] Lipaseon 01-08-2025 Lipase [Catalytic activity/Vol] 18 U/L Low 73-393 [facility] Comment on above: Performed By: #### L 100.0100, L500.4050, L501.2450 ####[facility] [address] [place], [address] Lipase measurementOrdered By : ED PROVIDER on 01-08-2025 Lipase [Catalytic activity/Vol] 18 U/L Low 73-393 [facility] Lymphocytes Auto (Unsp spec) [#/Vol]Ordered By: ED PROVIDER on 01-08-2025 Lymphocytes (Bld) [#/Vol] 1.90 10*3/uL 0.83-4.51 [facility] Lymphocytes/100 WBC Auto (Un sp spec)Ordered By: ED PROVIDER on 01-08-2025 Lymphocytes/100 WBC (Bld) 20.3 % 19-41 [facility] MCV (mean corpuscular volume ) determinationOrdered By: ED PROVIDER on 01-08-2025 MCV (RBC) [Entitic vol] 88.7 fL 81-99 [facility] Mean corpuscular hemoglobin (MCH) determinationOrdered By: ED PROVIDER on 01-08-2025 MCH (RBC) [Entitic mass] 29.8 pg 27.0-32.0 [facility] Mean corpuscular hemoglobin concentration (MCHC) determinationOrdered By: ED PROVIDER on 01-08-2025 MCHC (RBC) [Mass/Vol] 33.6 g/dL 32-36 [facility] Mean platelet volume determi nationOrdered By: ED PROVIDER on 01-08-2025 Platelet mean volume (Bld) [Entitic vol] 9.7 fL 6.2-12.0 [facility] Microscopic analysis of urin e for red blood cells (RBC)Ordered By: Isaiah Villanueva on 01-08-2025 Microscopic analysis of urine for red blood cells (RBC) 0-5 SEEN /hpf 0-5 [facility] Urine RBC 0-5 SEEN /hpf 0-5 [facility] Monocyte percentageOrdered B y: ED PROVIDER on 01-08-2025 Monocytes/100 WBC (Bld) 6.3 % 0-10 [facility] Mucus LM Ql (Urine sed)Order ed By: Isaiah Villanueva on 01-08-2025 Mucus Ql (Urine sed) 1+ /hpf [facility] Neutrophil percentageOrdered By: ED PROVIDER on 01-08-2025 Neutrophils/100 WBC (Bld) 70.7 % High 47-70 [facility] Nitrite Test strip Ql (U)Ord ered By: Isaiah Villanueva on 01-08-2025 Nitrite Ql (U) Negative Negative [facility] Nucleated red blood cell per centageOrdered By: ED PROVIDER on 01-08-2025 Nucleated RBC/100 WBC (Bld) [Ratio] 0 % 0-5 [facility] Platelet countOrdered By: ED PROVIDER on 01-08-2025 Platelets (Bld) [#/Vol] 237 10*3/uL 150-450 [facility] Potassium measurementOrdered By: ED PROVIDER on 01-08-2025 Potassium [Moles/Vol] 4.4 mmol/L 3.5-5.1 [facility] Protein Test strip Ql (U)Ord ered By: Isaiah Villanueva on 01-08-2025 Protein Ql (U) 30 mg/dl High Negative [facility] RBC Auto (Bld) [#/Vol]Ordere d By: ED PROVIDER on 01-08-2025 RBC (Bld) [#/Vol] 4.94 10*6/uL 4.2-5.4 [facility] Serum anion gap measurementO rdered By: ED PROVIDER on 01-08-2025 Anion gap [Moles/Vol] 7 mmol/L 5-15 [facility] Serum globulin measurementOr dered By: ED PROVIDER on 01-08-2025 Globulin (S) [Mass/Vol] 5.4 g/dL High 2.2-4.2 [facility] Serum or plasma alanine del rio otransferase (ALT) measurementOrdered By: ED PROVIDER on 01-08-2025 ALT [Catalytic activity/Vol] 23 U/L 13-56 [facility] Serum or plasma albumin cass urement (mass/volume)Ordered By: ED PROVIDER on 01-08-2025 Albumin [Mass/Vol] 3.0 g/dL Low 3.2-5.0 [facility] Serum or plasma alkaline tre sphatase measurementOrdered By: ED PROVIDER on 01-08-2025 ALP [Catalytic activity/Vol] 98 U/L 45-117 [facility] Serum or plasma calcium cass urement (mass/volume)Ordered By: ED PROVIDER on 01-08-2025 Calcium [Mass/Vol] 9.5 mg/dL 8.5-10.1 [facility] Serum or plasma creatinine m easurement (mass/volume)Ordered By: ED PROVIDER on 01-08-2025 Creatinine [Mass/Vol] 0.73 mg/dL 0.55-1.02 [facility] Comment on above: The validity of the calculated GFR & GFRAA in patients over 70 years has not been determined. Clinical correlation is essential. Serum or plasma urea nitroge n measurement (mass/volume)Ordered By: ED PROVIDER on 01-08-2025 Urea nitrogen [Mass/Vol] 14 mg/dL 7-18 [facility] Sodium levelOrdered By: ED P VINITA on 01-08-2025 Sodium [Moles/Vol] 136 mmol/L 136-145 [facility] Squamous epithelial cells de tection in urine sediment by light microscopyOrdered By: Isaiah Villanueva on 01-08-2025 Epithelial cells.squamous LM Ql (Urine sed) 0-5 SEEN /hpf 5-10 [facility] Total proteinOrdered By: ED PROVIDER on 01-08-2025 Protein [Mass/Vol] 8.4 g/dL High 6.4-8.2 [facility] Urinalysis, Completeon 01-08 BACTERIA 2+ /hpf Normal None Seen [facility] Comment on above: Order Comment: COLOR OF URINE MAY AFFECT DIPSTICK RESULTS. CLEAN CATCH Performed By: #### L 400.0001 #### [facility] [address] [place], [place], [id number] EPI,SQUAMOUS 0-5 SEEN Normal 5-10 [facility] Comment on above: Order Comment: COLOR OF URINE MAY AFFECT DIPSTICK RESULTS. CLEAN CATCH Performed By: #### L 400.0001 #### [facility] [address] [place], [address] Mucus Ql (Urine sed) 1+ /hpf Normal [facility] Comment on above: Order Comment: COLOR OF URINE MAY AFFECT DIPSTICK RESULTS. CLEAN CATCH Performed By: #### L 400.0001 #### [facility] [address] [place], [address] RBC 0-5 SEEN Normal 0-5 [facility] Comment on above: Order Comment: COLOR OF URINE MAY AFFECT DIPSTICK RESULTS. CLEAN CATCH Performed By: #### L 400.0001 #### [facility] [address] [place], [address] WBC 5-10 SEEN Normal 0-5 [facility] Comment on above: Order Comment: COLOR OF URINE MAY AFFECT DIPSTICK RESULTS. CLEAN CATCH Performed By: #### L 400.0001 #### [facility] [address] [place], [address] Urine blood detectionOrdered By: Isaiah Villanueva on 01-08-2025 Urine Occult Blood 50 /ul High Negative [facility] Urine clarityOrdered By: Misty Villanueva on 01-08-2025 Clarity (U) Sl. Cloudy Clear [facility] Urine color determinationOrd ered By: Isaiah Villanueva on 01-08-2025 Color (U) Mirna Yellow [facility] Urine cultureOrdered By: Rose Santos on 01-08-2025 Bacteria identified Cx Nom (U) Positive Abnormal [facility] Urine glucose detectionOrder ed By: Isaiah Villanueva on 01-08-2025 Glucose Ql (U) Normal mg/dl Normal [facility] Urine leukocyte esterase det ection by dipstickOrdered By: Isaiah Villanueva on 01-08-2025 Leukocyte esterase Test strip Ql (U) 100 /ul High Negative [facility] Urine pHOrdered By: Isaiah ventura on 01-08-2025 pH (U) 6.0 [pH] 5.0 - 8.0 [facility] Urine sediment bacteria coun t by microscopy (number/high power field)Ordered By: Isaiah Villanueva on 01-08-2025 Bacteria LM.HPF (Urine sed) [#/Area] 2 /[HPF] None Seen [facility] Urine specific gravity measu rementOrdered By: Isaiah Villanueva on 01-08-2025 Specific gravity (U) [Rel density] 1.015 1.002-1.030 [facility] Urine urobilinogen measureme ntOrdered By: Isaiah Villanueva on 01-08-2025 Urobilinogen Ql (U) 4 mg/dl High Normal [facility] Urobilinogen Ql (U)Ordered B y: Isaiah Villanueva on 01-08-2025 Urobilinogen (U) [Mass/Vol] 4 mg/dL High Normal [facility] White blood cell (WBC) count Ordered By: ED PROVIDER on 01-08-2025 WBC (Bld) [#/Vol] 9.4 10*3/uL 4.4-11.0 [facility] White blood cell countOrdere d By: Isaiah Villanueva on 01-08-2025 Urine WBC 5-10 SEEN /hpf 0-5 [facility] White blood cell count 5-10 SEEN /hpf 0-5 [facility] Bacteria Ur Culton Bacteria identified Cx Nom (U) ORGANISM ID: 1 10,000 -<50,000 CFU/ml Normal urogenital marianela Normal [facility] Comment on above: Performed By: #### 6 30-4 ####[facility] LABCLIA [id number] [place] [id number] [place] [facility] CNOVon 12-24-2024 CNOV Office Visit (UCWSTR ) -- UZMA MCDONALD ([id number]) 1970 F Date Time Provider Department 12/24/24 1:45 PM ISAÍAS RIBEIRO [facility] During your visit today, we recorded the following information about you: Temperature Pulse Respiration Blood pressure 97.8 degrees 80/minute 18/minute 126/68 Weight 110.6 kg Isaías Ribeiro, [employer]ER AND 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 12/24/2024 2:08 PM Signed Subjective HPI Nontoxic-appearing 54-year-old female presents urgent care chief complaint possible UTI. Duration of symptom 4 days. Associated symptoms burning frequency and urgency. History of UTIs and kidney stones in the past. States this feels like UTI. OTC medications none. Denies any vaginal discharge or itching. No urological abnormalities. No fever body aches chills nausea vomiting abdominal pain today. States does have some slight tenderness over bladder area only. Past medical history prescription medications allergies reviewed. .Patient presents with: Urinary Problem: burning with urination x 4 days PAST MEDICAL HISTORY Diagnosis Date Anemia Essential hypertension Hypothyroidism no meds and last tested 2016 PAST SURGICAL HISTORY Procedure Laterality Date DILATION AND CURETTAGE 1996 LIGATE FALLOPIAN TUBE 1996 PAST SURGICAL HISTORY OF Right 04/19/2020 intraocular lens implant PAST SURGICAL HISTORY OF 03/31/2021 [employer] stent REBEL CORONARY PLAT CHROMIUM BARE METAL STENT SYS [id number], 144 CM 06/26/2014 REMOVAL GALLBLADDER 2013 SUPRACERVICAL ABDL HYSTER W/WO RMVL TUBE OVARY Bilateral 05/28/2022 supracervical hyst, RSO, left salpingectomy for fibroid utereus 3600 gm ALLERGIES Patient has no known allergies. MEDICATIONS albuterol HFA (PROVENTIL HFA, VENTOLIN HFA) 90 mcg/actuation inhaler Inhale 2 Puffs as instructed every 6 hours as needed for wheezing/shortness of breath. atorvastatin (LIPITOR) 40 mg tablet Take 1 tablet by mouth once daily. sertraline (ZOLOFT) 50 mg tablet Take 1 tablet by mouth once daily. Multivitamins chew Take by mouth. With iron aspirin, enteric coated (ASPIRIN, ENTERIC COATED) 81 mg EC tablet Take 81 mg by mouth once daily. clopidogrel (PLAVIX) 75 mg tablet Take 75 mg by mouth once daily. losartan (COZAAR) 25 mg tablet Take 25 mg by mouth once daily. metoprolol tartrate, short acting, (LOPRESSOR) 25 mg tablet Take 25 mg by mouth twice daily. fluticasone (FLONASE) 50 mcg/actuation nasal spray Use 2 Sprays in each nostril once daily. Rinse mouth after use. (Patient not taking: Reported on 04/18/2024) FAMILY HISTORY Problem Relation Age of Onset Heart Father Kidney Disease Father No Known Problems Brother No Known Problems Maternal Grandmother No Known Problems Maternal Grandfather No Known Problems Paternal Grandmother No Known Problems Paternal Grandfather Social History Tobacco Use Smoking status: Every Day Smokeless tobacco: Never Vaping Use Vaping status: Former Substance Use Topics Alcohol use: Not Currently Drug use: Not Currently BP 126/68 Pulse 80 Temp 36.6 ?C (97.8 ?F) Resp 18 Wt 110.6 kg (243 lb 13.3 oz) LMP 05/20/2021 (Exact Date) SpO2 96% BMI 38.19 kg/m? Review of Systems Constitutional: Negative for chills, fever and malaise/fatigue. Cardiovascular: Negative for chest pain. Gastrointestinal: Negative for abdominal pain, constipation, diarrhea, nausea and vomiting. Genitourinary: Positive for dysuria, frequency and urgency. Negative for flank pain and hematuria. Musculoskeletal: Negative for myalgias. Objective Physical Exam Vitals and nursing note reviewed. Constitutional: General: She is not in acute distress. Appearance: She is not diaphoretic. HENT: Head: Jaw: No trismus. Right Ear: Hearing normal. No decreased hearing noted. No drainage, swelling or tenderness. Tympanic membrane is not perforated, erythematous or bulging. Left Ear: Hearing normal. No decreased hearing noted. No drainage, swelling or tenderness. Tympanic membrane is not perforated, erythematous or bulging. Mouth/Throat: Pharynx: Uvula midline. No uvula swelling. Tonsils: No tonsillar abscesses. Cardiovascular: Rate and Rhythm: Normal rate and regular rhythm. Pulses: Normal pulses. Pulmonary: Effort: Pulmonary effort is normal. No respiratory distress. Breath sounds: Normal breath sounds. Chest: Chest wall: No tenderness. Abdominal: General: Bowel sounds are normal. There is no distension. Palpations: Abdomen is soft. Abdomen is not rigid. Tenderness: There is abdominal tenderness in the suprapubic area. There is no right CVA tenderness, left CVA tenderness, guarding or rebound. Negative signs include Chappell's sign and McBurney's sign. Comments: Mild Musculoskeletal: General: No tenderness. Lymphadenopathy: Head: Right side of head: No submental, submandibular, tonsillar, preauricular, posterior auricular or oc (more content not included)... Normal [facility] UA DIP, URINE (POC)on 2024 BILIRUBIN UA (POCT) Negative Negative [facility] CLARITY UA (POCT) Slightly Cloudy Cl [facility] COLOR UA (POCT) Dark yellow [facility] GLUCOSE UA (POCT) Negative Negative mg/dL [facility] Hemoglobin Ql (U) Moderate Abnormal [facility] Interpretation and review of laboratory results Abnormal [facility] KETONE UA (POCT) Negative Negative mg/dL [facility] LEUKOCYTES UA (POCT) Trace Abnormal Negative [facility] NITRITE UA (POCT) Negative Negative [facility] PH UA (POCT) 6.5 4.5 - 8.0 [facility] Protein Ql (U) 100 mg/dL Abnormal Negative [facility] SPECIFIC GRAVITY UA (POCT) 1.025 1.005 - 1.030 [facility] UROBILINOGEN UA (POCT) 1 Judith l E.U./dL [facility] Location:[address], [place], [place], [address] [place] [address] POINT OF CARE [facility] UZMA MCDONALD ([id number]) 1970 F Date Time Provider Department 10/03/24 [facility] During your visit today, we recorded the following information about you: Susy Smith APRN.CR[employer]ER 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 10/03/2024 8:16 AM Signed Please let patient know her mammogram is negative. Patient should continue with annual screenings. Ann Zacarias RN 10/03/2024 9:49 AM Signed Called and left a voicemail for the Patient to call back and ask for a nurse to receive the providers message. RAMONE Vanessa Rilee, MA 10/09/2024 3:53 PM Signed Pt reviewed message from PCP regarding mammogram results. PCP sent pt message to pt on 10/03/24, was reviewed by pt same day. Zoey Pineda MA Allergies As of Date: 10/03/2024 (No Known Allergies) Date Reviewed: 08/02/2024 Reviewed by: Isaías Ribeiro APRN.CRACKER AND 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 - Fully Assessed Reason for Visit: Results [95] Prescriptions as of 10/09/2024 - albuterol HFA (PROVENTIL HFA, VENTOLIN HFA) 90 mcg/actuation inhaler Inhale 2 Puffs as instructed every 6 hours as needed for wheezing/shortness of breath. - atorvastatin (LIPITOR) 40 mg tablet Take 1 tablet by mouth once daily. - sertraline (ZOLOFT) 50 mg tablet Take 1 tablet by mouth once daily. - fluticasone (FLONASE) 50 mcg/actuation nasal spray Use 2 Sprays in each nostril once daily. Rinse mouth after use. - Multivitamins chew Take by mouth. With iron - aspirin, enteric coated (ASPIRIN, ENTERIC COATED) 81 mg EC tablet Take 81 mg by mouth once daily. - clopidogrel (PLAVIX) 75 mg tablet Take 75 mg by mouth once daily. - losartan (COZAAR) 25 mg tablet Take 25 mg by mouth once daily. - metoprolol tartrate, short acting, (LOPRESSOR) 25 mg tablet Take 25 mg by mouth twice daily. Problem List As Of Date 10/03/2024 Noted Resolved Obesity, Class I, BMI 30-34.9 [E66.811] 06/29/2022 Coronary artery disease of [place] heart with st*07/27/2022 Hyperlipidemia, mixed [E78.2] 07/27/2022 Hyperglycemia [R73.9] 07/28/2022 Dizziness [R42] 12/10/2022 Heart murmur [R01.1] 05/27/2022 History of anemia [Z86.2] 01/26/2023 Menorrhagia with irregular cycle [N92.1] 11/30/2022 Encounter Status:Closed by ZOEY PINEDA on 10/09/24 Normal [facility] SCREENING W David 09-29 BRITTANY SCREENING W ALFONSO * * *Final Report* * * DATE OF EXAM: Sep 29 2024 1:34PM [id number] [id number] - BRITTANY SCREENING W ALFONSO / PROCEDURE REASON: Encounter for screening mammogram for breast cancer * * * * Physician Interpretation * * * * RESULT: [facility] [address] [place] [address] HISTORY: Patient is 54 years old and is seen for screening and is asymptomatic in both breasts. Patient states no personal history of breast cancer. Patient states no personal history of other cancers. COMPARISON STUDIES: The present examination has been compared to prior imaging studies dated 07/30/2022 (mammogram) and 09/17/2023 (mammogram). MAMMOGRAM TECHNIQUE: The study was acquired using full field digital technology and interpreted from soft copy. Digital Breast Tomosynthesis (DBT) images were obtained and used to assist in the interpretation of this examination. Computer-aided detection was utilized by the radiologist in the interpretation of this examination. MAMMOGRAM FINDINGS: There are scattered areas of fibroglandular density. No suspicious masses, calcifications or other abnormalities are seen in either breast. There are no significant changes from the prior study. IMPRESSION: There is no mammographic evidence of malignancy in either breast. Routine screening mammogram is recommended. Annual mammogram will be due in 1 year. BI-RADS Category 1: Negative RISK: Based on the Tyrer-Cuzick (TC) risk assessment model, this patient has a 8.5% lifetime risk of developing breast cancer, meaning they are at average risk for developing breast cancer. However, this is only an estimate based on available history provided on the patient's questionnaire. We encourage all patients to talk with their providers about these results, further recommendations for managing breast health, and appropriate supplemental screening options if the patient has dense breast tissue. Interpreting Radiologist: Roni Kang M.D. Electronically signed on: 10/03/2024 Plant Control Aide: PAU Transcribe Date/Time: Sep 29 2024 1:22P Dictated by: RONI KANG MD This examination was interpreted and the report reviewed and electronically signed by: RONI KANG MD on Oct 03 2024 1:30AM EST [id number] Normal [facility] Manish 09-25-2024 CNPN Telephone (RDXWS) -- DIANEUZMA CAMACHO ([id number]) 1970 F Date Time Provider Department 09/25/24 DAVID FINK During your visit today, we recorded the following information about you: Elizabeth Elizondo, [employer] 09/25/2024 1:42 PM Signed Could we have a mammogram screening order STAT! Pt schedule today at 1450. Thanks a million Susy Smith APRN.CRACKER AND 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 09/25/2024 2:23 PM Signed Ordered Allergies As of Date: 09/25/2024 (No Known Allergies) Date Reviewed: 08/02/2024 Reviewed by: Isaías Ribeiro APRN.CRACKER AND 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 - Fully Assessed Reason for Visit: Orders [681] Primary Visit Diagnosis:Encounter for screening mammogram for breast cancer [Z12.31] Order(s):BRITTANY SCREENING W ALFONSO [[id number]] Order #: [id number] FUTURE Prescriptions as of 09/25/2024 - albuterol HFA (PROVENTIL HFA, VENTOLIN HFA) 90 mcg/actuation inhaler Inhale 2 Puffs as instructed every 6 hours as needed for wheezing/shortness of breath. - atorvastatin (LIPITOR) 40 mg tablet Take 1 tablet by mouth once daily. - sertraline (ZOLOFT) 50 mg tablet Take 1 tablet by mouth once daily. - fluticasone (FLONASE) 50 mcg/actuation nasal spray Use 2 Sprays in each nostril once daily. Rinse mouth after use. - Multivitamins chew Take by mouth. With iron - aspirin, enteric coated (ASPIRIN, ENTERIC COATED) 81 mg EC tablet Take 81 mg by mouth once daily. - clopidogrel (PLAVIX) 75 mg tablet Take 75 mg by mouth once daily. - losartan (COZAAR) 25 mg tablet Take 25 mg by mouth once daily. - metoprolol tartrate, short acting, (LOPRESSOR) 25 mg tablet Take 25 mg by mouth twice daily. Problem List As Of Date 09/25/2024 Noted Resolved Obesity, Class I, BMI 30-34.9 [E66.811] 06/29/2022 Coronary artery disease of [place] heart with st*07/27/2022 Hyperlipidemia, mixed [E78.2] 07/27/2022 Hyperglycemia [R73.9] 07/28/2022 Dizziness [R42] 12/10/2022 Heart murmur [R01.1] 05/27/2022 History of anemia [Z86.2] 01/26/2023 Menorrhagia with irregular cycle [N92.1] 11/30/2022 Encounter Status:Closed by ASHOK LAKE on 09/25/24 [facility] CNOVon 08-02-2024 CNOV Office Visit ([facility] ) -- UZMA MCDONALD ([id number]) 1970 F Date Time Provider Department 08/02/24 6:45 PM ISAÍAS RIBEIRO [facility] During your visit today, we recorded the following information about you: Temperature Pulse Respiration Blood pressure 98 degrees 93/minute 20/minute 119/76 Weight 111.5 kg Isaías Ribeiro, BLADDER BLOWER.CRACKER AND 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 08/02/2024 7:54 PM Signed Subjective HPI Nontoxic-appearing female presents urgent care chief complaint cough chest congestion shortness of breath and wheezing at times. Duration of symptoms 1 week. Associated symptoms listed above. No known sick contacts. History of bronchitis this feels similar. Risk factor smoking. Denies any fevers today hemoptysis pleuritic pain nausea vomiting chest pain headaches dizziness change in bowel or bladder habits. Past medical history prescription medications allergies reviewed. .Patient presents with: Cough: Chest congestion and tightness, SOB, wheezing x1 week PAST MEDICAL HISTORY Diagnosis Date Anemia Essential hypertension Hypothyroidism no meds and last tested 2016 PAST SURGICAL HISTORY Procedure Laterality Date DILATION AND CURETTAGE 1996 LIGATE FALLOPIAN TUBE 1996 PAST SURGICAL HISTORY OF Right 04/19/2020 intraocular lens implant PAST SURGICAL HISTORY OF 03/31/2021 [employer] stent REBEL CORONARY PLAT CHROMIUM BARE METAL STENT SYS [id number], 144 CM 06/26/2014 REMOVAL GALLBLADDER 2013 SUPRACERVICAL ABDL HYSTER W/WO RMVL TUBE OVARY Bilateral 05/28/2022 supracervical hyst, RSO, left salpingectomy for fibroid utereus 3600 gm ALLERGIES Patient has no known allergies. MEDICATIONS albuterol HFA (PROVENTIL HFA, VENTOLIN HFA) 90 mcg/actuation inhaler Inhale 2 Puffs as instructed every 4 hours as needed for wheezing/shortness of breath. atorvastatin (LIPITOR) 40 mg tablet Take 1 tablet by mouth once daily. sertraline (ZOLOFT) 50 mg tablet Take 1 tablet by mouth once daily. fluticasone (FLONASE) 50 mcg/actuation nasal spray Use 2 Sprays in each nostril once daily. Rinse mouth after use. (Patient not taking: Reported on 04/18/2024) Multivitamins chew Take by mouth. With iron aspirin, enteric coated (ASPIRIN, ENTERIC COATED) 81 mg EC tablet Take 81 mg by mouth once daily. clopidogrel (PLAVIX) 75 mg tablet Take 75 mg by mouth once daily. losartan (COZAAR) 25 mg tablet Take 25 mg by mouth once daily. metoprolol tartrate, short acting, (LOPRESSOR) 25 mg tablet Take 25 mg by mouth twice daily. FAMILY HISTORY Problem Relation Age of Onset Heart Father Kidney Disease Father No Known Problems Brother No Known Problems Maternal Grandmother No Known Problems Maternal Grandfather No Known Problems Paternal Grandmother No Known Problems Paternal Grandfather Social History Tobacco Use Smoking status: Every Day Smokeless tobacco: Never Vaping Use Vaping status: Former Substance Use Topics Alcohol use: Not Currently Drug use: Not Currently BP 119/76 Pulse 93 Temp 36.7 ?C (98 ?F) Resp 20 Wt 111.5 kg (245 lb 13 oz) LMP 05/20/2021 (Exact Date) SpO2 94% BMI 38.50 kg/m? Review of Systems Constitutional: Negative for chills, fever and malaise/fatigue. HENT: Positive for congestion. Negative for ear discharge, ear pain, sinus pain and sore throat. Eyes: Negative for blurred vision, pain, discharge and redness. Respiratory: Positive for cough, sputum production, shortness of breath and wheezing. Negative for hemoptysis and stridor. Cardiovascular: Negative for chest pain. Gastrointestinal: Negative for abdominal pain, diarrhea, nausea and vomiting. Musculoskeletal: Negative for myalgias. Skin: Negative for itching and rash. Neurological: Negative for dizziness and headaches. Objective Physical Exam Constitutional: General: She is not in acute distress. Appearance: She is not diaphoretic. HENT: Head: Normocephalic. Jaw: No trismus, tenderness, swelling or pain on movement. Mouth/Throat: Mouth: Mucous membranes are moist. Pharynx: Oropharynx is clear. Uvula midline. No pharyngeal swelling, oropharyngeal exudate, posterior oropharyngeal erythema or uvula swelling. Eyes: Conjunctiva/sclera: Conjunctivae normal. Pupils: Pupils are equal, round, and reactive to light. Cardiovascular: Rate and Rhythm: Normal rate and regular rhythm. Heart sounds: Normal heart sounds. Pulmonary: Effort: Pulmonary effort is normal. No tachypnea, accessory muscle usage or respiratory distress. Breath sounds: No stridor. Wheezing and rhonchi present. No rales. Abdominal: General: There is no distension. Palpations: Abdomen is soft. Tenderness: There is no abdominal tenderness. There is no guarding or rebound. Musculoskeletal: Cervical back: Normal range of motion and neck supple. No edema, erythema, rigidity or tenderness. No pain with movement. Normal range of motion. Lymphad (more content not included)... Normal [facility] 08-02-2024 [facility] Telephone ([facility]) -- UZMA MCDONALD ([id number]) 1970 F Date Time Provider Department 08/02/24 ISAÍAS RIBEIRO [facility] During your visit today, we recorded the following information about you: Isaías Ribeiro APRN.CNP 08/02/2024 7:52 PM Signed Please inform patient that chest x-ray is negative. Continue plan of care as discussed during visit. Hazel Marshall LPN 08/02/2024 7:58 PM Signed Patient notified.Hazel Marshall LPN Allergies As of Date: 08/02/2024 (No Known Allergies) Date Reviewed: 08/02/2024 Reviewed by: Isaías Ribeiro APRN.CRACKER AND 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 - Fully Assessed Reason for Visit: Results [95] Prescriptions as of 08/02/2024 - doxycycline (VIBRA-TABS) 100 mg tablet Take 1 tablet by mouth two times a day for 7 days. - predniSONE (DELTASONE) 10 mg tablet Take 4 tablets by mouth once daily for 5 days. - albuterol HFA (PROVENTIL HFA, VENTOLIN HFA) 90 mcg/actuation inhaler Inhale 2 Puffs as instructed every 6 hours as needed for wheezing/shortness of breath. - Inhalational Spacing Device 1 Device one time only for 1 dose. - atorvastatin (LIPITOR) 40 mg tablet Take 1 tablet by mouth once daily. - sertraline (ZOLOFT) 50 mg tablet Take 1 tablet by mouth once daily. - fluticasone (FLONASE) 50 mcg/actuation nasal spray Use 2 Sprays in each nostril once daily. Rinse mouth after use. - Multivitamins chew Take by mouth. With iron - aspirin, enteric coated (ASPIRIN, ENTERIC COATED) 81 mg EC tablet Take 81 mg by mouth once daily. - clopidogrel (PLAVIX) 75 mg tablet Take 75 mg by mouth once daily. - losartan (COZAAR) 25 mg tablet Take 25 mg by mouth once daily. - metoprolol tartrate, short acting, (LOPRESSOR) 25 mg tablet Take 25 mg by mouth twice daily. Problem List As Of Date 08/02/2024 Noted Resolved Obesity, Class I, BMI 30-34.9 [E66.9] 06/29/2022 Coronary artery disease of [place] heart with st*07/27/2022 Hyperlipidemia, mixed [E78.2] 07/27/2022 Hyperglycemia [R73.9] 07/28/2022 Dizziness [R42] 12/10/2022 Heart murmur [R01.1] 05/27/2022 History of anemia [Z86.2] 01/26/2023 Menorrhagia with irregular cycle [N92.1] 11/30/2022 Encounter Status:Closed by HAZEL MARSHALL on 08/02/24 [facility] XR CHEST 2V FRONTAL/LATon XR CHEST 2V FRONTAL/LAT * * *Final Report* * * DATE OF EXAM: Aug 02 2024 7:17PM WOX [id number] - XR CHEST 2V FRONTAL/LAT / PROCEDURE REASON: Acute cough * * * * Physician Interpretation * * * * EXAMINATION: CHEST RADIOGRAPH (2 VIEW FRONTAL and LATERAL) CLINICAL HISTORY: Acute cough MQ: XC2_6 EXAM DATE/TIME: 08/02/2024 7:17 PM COMPARISON: 04/23/2022 RESULT: Lines, tubes, and devices: None. Lungs and pleura: No consolidation. No lung mass. No pleural effusion. No pneumothorax. Cardiomediastinal silhouette: Normal cardiomediastinal silhouette. Bones and soft tissues: Unremarkable. IMPRESSION: No acute radiographic abnormality. Plant Control Aide: LING Transcribe Date/Time: Aug 02 2024 7:48P Dictated by : MARIA ELENA JONES MD This examination was interpreted and the report reviewed and electronically signed by: MARIA ELENA JONES MD on Aug 02 2024 7:48PM EST [id number] Normal [facility] XR Chest PA and Lateralon IMPRESSION: No acute radiographic abnormality. Plant Control Aide: [facility] Transcribe Date/Time: Aug 02 2024 7:48P Dictated by : MARIA ELENA JONES MD This examination was interpreted and the report reviewed and electronically signed by: MARIA ELENA JONES MD on Aug 02 2024 7:48PM EST DIVISION OF RADIOLOGY * * *Final Report* * * DATE OF EXAM: Aug 02 2024 7:17PM WOX [id number] - XR CHEST 2V FRONTAL/LAT / PROCEDURE REASON: Acute cough * * * * Physician Interpretation * * * * EXAMINATION: CHEST RADIOGRAPH (2 VIEW FRONTAL & LATERAL) CLINICAL HISTORY: Acute cough MQ: XC2_6 EXAM DATE/TIME: 08/02/2024 7:17 PM COMPARISON: 04/23/2022 RESULT: Lines, tubes, and devices: None. Lungs and pleura: No consolidation. No lung mass. No pleural effusion. No pneumothorax. Cardiomediastinal silhouette: Normal cardiomediastinal silhouette. Bones and soft tissues: Unremarkable. DIVISION OF RADIOLOGY Provider, Wilman Chew - 08/02/2024 * * *Final Report* * * DATE OF EXAM: Aug 02 2024 7:17PM WOX [id number] - XR CHEST 2V FRONTAL/LAT / PROCEDURE REASON: Acute cough * * * * Physician Interpretation * * * * EXAMINATION: CHEST RADIOGRAPH (2 VIEW FRONTAL & LATERAL) CLINICAL HISTORY: Acute cough MQ: XC2_6 EXAM DATE/TIME: 08/02/2024 7:17 PM COMPARISON: 04/23/2022 RESULT: Lines, tubes, and devices: None. Lungs and pleura: No consolidation. No lung mass. No pleural effusion. No pneumothorax. Cardiomediastinal silhouette: Normal cardiomediastinal silhouette. Bones and soft tissues: Unremarkable. IMPRESSION IMPRESSION: No acute radiographic abnormality. Plant Control Aide: [facility] Transcribe Date/Time: Aug 02 2024 7:48P Dictated by : MARIA ELENA JONES MD This examination was interpreted and the report reviewed and electronically signed by: MARIA ELENA JONES MD on Aug 02 2024 7:48PM EST [facility] Radiology Study observation (narrative) [facility] XR Chest PA and LateralOrder ed By: [facility] Provider on 08-02-2024 [facility] CNOVon 04-18-2024 CNOV Office Visit ([facility] ) -- UZMA MCDONALD ([id number]) 1970 F Date Time Provider Department 04/18/24 12:15 PM JUANA LINTON [facility] During your visit today, we recorded the following information about you: Temperature Pulse Respiration Blood pressure 98.5 degrees 98/minute 16/minute 118/68 Weight 112.4 kg Juana Linton APRN.CNP 04/18/2024 1:22 PM Signed This note was created using NoteWriter. Subjective Uzma Mcdonald is a 53 year old female. 53 year old female with PMH CAD, HTN, thyroid, tobacco usage. Acute onset one month ago +cough Harsh and non productive. +sore throat +congestion +post nasal drainage Denies tightness in chest Denies dyspnea Denies CP Denies fever or chills. Cough seems worse at night. She was seen 03/23/24 for similar, at that time she had x 4 days of symptoms Was provided Prednisone and albuterol inhaler. Endorses mild relief of symptoms. Has used Claritin, Jenny, and air humidifier. Has used wedge. The history is provided by the patient. No hourly associate was used. URI She complains of cough. There is no chest tightness, difficulty breathing, frequent throat clearing, hemoptysis, hoarse voice, shortness of breath, sputum production or wheezing. This is a new problem. The current episode started 1 to 4 weeks ago. The problem occurs constantly. The problem has been gradually worsening. The cough is non-productive. Associated symptoms include ear congestion, nasal congestion, postnasal drip and a sore throat. Pertinent negatives include no appetite change, chest pain, dyspnea on exertion, ear pain, fever, headaches, heartburn, malaise/fatigue, myalgias, orthopnea, PND, rhinorrhea, sneezing, sweats, trouble swallowing or weight loss. Her symptoms are aggravated by nothing. Her symptoms are alleviated by nothing. She reports no improvement on treatment. Risk factors for lung disease include smoking/tobacco exposure. There is no history of asthma, bronchiectasis, bronchitis, COPD, emphysema or pneumonia. PAST MEDICAL HISTORY Diagnosis Date Anemia Essential hypertension Hypothyroidism no meds and last tested 2016 PAST SURGICAL HISTORY Procedure Laterality Date DILATION AND CURETTAGE 1996 LIGATE FALLOPIAN TUBE 1996 PAST SURGICAL HISTORY OF Right 04/19/2020 intraocular lens implant PAST SURGICAL HISTORY OF 03/31/2021 [employer] stent REBEL CORONARY PLAT CHROMIUM BARE METAL STENT SYS [id number], 144 CM 06/26/2014 REMOVAL GALLBLADDER 2013 SUPRACERVICAL ABDL HYSTER W/WO RMVL TUBE OVARY Bilateral 05/28/2022 supracervical hyst, RSO, left salpingectomy for fibroid utereus 3600 gm ALLERGIES Patient has no known allergies. MEDICATIONS albuterol HFA (PROVENTIL HFA, VENTOLIN HFA) 90 mcg/actuation inhaler Inhale 2 Puffs as instructed every 4 hours as needed for wheezing/shortness of breath. atorvastatin (LIPITOR) 40 mg tablet Take 1 tablet by mouth once daily. sertraline (ZOLOFT) 50 mg tablet Take 1 tablet by mouth once daily. Multivitamins chew Take by mouth. With iron aspirin, enteric coated (ASPIRIN, ENTERIC COATED) 81 mg EC tablet Take 81 mg by mouth once daily. clopidogrel (PLAVIX) 75 mg tablet Take 75 mg by mouth once daily. losartan (COZAAR) 25 mg tablet Take 25 mg by mouth once daily. metoprolol tartrate, short acting, (LOPRESSOR) 25 mg tablet Take 25 mg by mouth twice daily. doxycycline monohydrate 100 mg tablet Take 1 tablet by mouth two times a day for 7 days. fluticasone (FLONASE) 50 mcg/actuation nasal spray Use 2 Sprays in each nostril once daily. Rinse mouth after use. (Patient not taking: Reported on 04/18/2024) FAMILY HISTORY Problem Relation Age of Onset Heart Father Kidney Disease Father No Known Problems Brother No Known Problems Maternal Grandmother No Known Problems Maternal Grandfather No Known Problems Paternal Grandmother No Known Problems Paternal Grandfather Social History Tobacco Use Smoking status: Every Day Smokeless tobacco: Never Vaping Use Vaping Use: Former Substance Use Topics Alcohol use: Not Currently Drug use: Not Currently Review of Systems Constitutional: Negative for appetite change, fever, malaise/fatigue and weight loss. HENT: Positive for congestion, postnasal drip, sinus pressure and sore throat. Negative for ear pain, hoarse voice, rhinorrhea, sneezing and trouble swallowing. Eyes: Negative for pain, discharge and itching. Respiratory: Positive for cough. Negative for apnea, hemoptysis, sputum production, choking, chest tightness, shortness of breath and wheezing. Cardiovascular: Negative for chest pain, dyspnea on exertion and PND. Gastrointestinal: Negative for abdominal pain, heartburn, nausea, rectal pain and vomiting. Musculoskeletal: Negative for myalgias. Skin: Negative for color change, pallor and rash. Allergic/Immunologic: Negative for enviro (more content not included)... Normal [facility] CNOVon 03-23-2024 CNOV Office Visit ([facility] ) -- UZMA MCDONALD ([id number]) 1970 F Date Time Provider Department 03/23/24 10:30 AM CINTHYA VAUGHAN [facility] During your visit today, we recorded the following information about you: Temperature Pulse Respiration Blood pressure 97.6 degrees 109/minute 16/minute 138/64 Weight 114.3 kg Cinthya Vaughan APRN.CNP 03/23/2024 11:01 AM Addendum ASSESSMENT/PLAN: 1. Acute cough - ICD9: 786.2, ICD10: R05.1 (primary diagnosis) - cough drops, mucinex as needed 2. Viral URI - ICD9: 465.9, ICD10: J06.9 - Discussed viral etiology and rationale for treatment. - Symptomatic treatment with prn analgesia - Supportive care with fluids and rest - offered COVID/flu testing, patient declined 3. Viral bronchitis - ICD9: 466.0, ICD10: J20.8 - PREDNISONE 20 MG TABLET - ALBUTEROL SULFATE HFA 90 MCG/ACTUATION AEROSOL INHALER 4. Eye redness - ICD9: 379.93, ICD10: H57.89 - suspect viral cause - Follow-up with your PCP in 3-5 days if symptoms have not improved or sooner if symptoms worsen - Discussed red flags and need for immediate medical evaluation if any occur. - Discussed supportive care treatment with fluids, rest and analgesia. - Discussed expected course of illness Cinthya Vaughan APRN.CNP ACUTE BRONCHITIS: You have acute bronchitis. This means the airway passages in your lungs are inflamed. Bronchitis may be caused by viruses or bacteria. Inhaling cigarette smoke will always make it worse. Exposure to irritating chemicals or second hand smoke as well as allergies can contribute to bronchitis. Repeat episodes of bronchitis may cause lifelong lung problems. Acute bronchitis is usually treated with rest, fluids, cough medicine, and inhaled medicine to open up the small airways. It is very important that you avoid smoke and drink increased amounts of fluids. A cool air vaporizer can help thin bronchial secretions. This makes it easier to cough and clear your chest. If you are a cigarette smoker, consider using nicotine gum or skin patches to help you withdraw. Recovery from bronchitis is often slow, but you should start feeling better after 2-3 days of treatment. Please call your doctor or return here if you have any of the following symptoms: Increased fever, chills, or chest pain. Severe shortness of breath or bloody sputum. Do not improve after 3 days of proper treatment. Cinthya Vaughan APRN.CRACKER AND 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 03/23/2024 11:07 AM Signed Subjective Cough Associated symptoms include chills, shortness of breath, wheezing and eye redness. Pertinent negatives include no chest pain, no ear pain and no sore throat. Uzma Mcdonald is a 53 year old female who presents with 4 days of cough, sinus congestion and drainage, chills, and post nasal drainage. Today she felt slightly dizzy. Cough is non-productive. She has slight shortness of breath with stair climbing. She has had sick contacts-her daughter and grandson have been sick with URI symptoms. She has been taking Mucinex at home. Review of Systems Constitutional: Positive for chills. Negative for fever and malaise/fatigue. HENT: Positive for congestion. Negative for ear pain and sore throat. Eyes: Positive for redness. Negative for blurred vision, double vision, photophobia, pain and discharge. Respiratory: Positive for cough, shortness of breath and wheezing. Negative for sputum production. Cardiovascular: Negative for chest pain. Neurological: Positive for dizziness. BP 138/64 Pulse 109 Temp 36.4 ?C (97.6 ?F) Resp 16 Wt 114.3 kg (251 lb 15.8 oz) LMP 05/20/2021 (Exact Date) SpO2 98% BMI 39.47 kg/m? PAST MEDICAL HISTORY Diagnosis Date Anemia Essential hypertension Hypothyroidism no meds and last tested 2016 PAST SURGICAL HISTORY Procedure Laterality Date DILATION AND CURETTAGE 1996 LIGATE FALLOPIAN TUBE 1996 PAST SURGICAL HISTORY OF Right 04/19/2020 intraocular lens implant PAST SURGICAL HISTORY OF 03/31/2021 [employer] stent REBEL CORONARY PLAT CHROMIUM BARE METAL STENT SYS [id number], 144 CM 06/26/2014 REMOVAL GALLBLADDER 2013 SUPRACERVICAL ABDL HYSTER W/WO RMVL TUBE OVARY Bilateral 05/28/2022 supracervical hyst, RSO, left salpingectomy for fibroid utereus 3600 gm ALLERGIES Patient has no known allergies. MEDICATIONS fluticasone (FLONASE) 50 mcg/actuation nasal spray Use 2 Sprays in each nostril once daily. Rinse mouth after use. Multivitamins chew Take by mouth. With iron aspirin, enteric coated (ASPIRIN, ENTERIC COATED) 81 mg EC tablet Take 81 mg by mouth once daily. clopidogrel (PLAVIX) 75 mg tablet Take 75 mg by mouth once daily. losartan (COZAAR) 25 mg tablet Take 25 mg by mouth once daily. metoprolol tartrate, short acting, (LOPRESSOR) 25 mg tablet Take 25 mg by mouth twice daily. predniSONE (DELTASONE) 20 mg tablet Take 2 tablets by mouth once daily for 4 day (more content not included)... Normal [facility] BRITTANY SCREENINGon 09-17-2023 [facility] XR Hand - right PA and Later al and Obliqueon 01-28-2023 IMPRESSION: Negative 3 views of the right hand. Plant Control Aide: LING Transcribe Date/Time: Jan 28 2023 8:19A Dictated by : BAILEE SYKES MD This examination was interpreted and the report reviewed and electronically signed by: BAILEE SYKES MD on Jan 28 2023 8:22AM [facility] DIVISION OF RADIOLOGY * * *Final Report* * * DATE OF EXAM: Jan 26 2023 3:43PM WOX [id number] - XR HAND 3V PA/LAT/OBL RT / PROCEDURE REASON: Trigger little finger of right hand * * * * Physician Interpretation * * * * EXAM TITLE: XR HAND 3V PA/LAT/OBL RT EXAM DATE/TIME: 01/26/2023 3:43 PM COMPARISON: None. CLINICAL INDICATION/HISTORY: Trigger little finger. TECHNIQUE: PA, lateral and oblique views of the right hand are presented. FINDINGS: No fractures or subluxations are noted. The joint spaces are maintained without obvious osteophyte formation. The mineralization of the bones is normal. There is no significant soft tissue swelling. DIVISION OF RADIOLOGY Provider, Wilman Chew - 01/28/2023 * * *Final Report* * * DATE OF EXAM: Jan 26 2023 3:43PM WOX [id number] - XR HAND 3V PA/LAT/OBL RT / PROCEDURE REASON: Trigger little finger of right hand * * * * Physician Interpretation * * * * EXAM TITLE: XR HAND 3V PA/LAT/OBL RT EXAM DATE/TIME: 01/26/2023 3:43 PM COMPARISON: None. CLINICAL INDICATION/HISTORY: Trigger little finger. TECHNIQUE: PA, lateral and oblique views of the right hand are presented. FINDINGS: No fractures or subluxations are noted. The joint spaces are maintained without obvious osteophyte formation. The mineralization of the bones is normal. There is no significant soft tissue swelling. IMPRESSION IMPRESSION: Negative 3 views of the right hand. Plant Control Aide: LING Transcribe Date/Time: Jan 28 2023 8:19A Dictated by : BAILEE SYKES MD This examination was interpreted and the report reviewed and electronically signed by: BAILEE SYKES MD on Jan 28 2023 8:22AM EST [facility] XR Hand - right PA and Later al and ObliqueOrdered By: [facility] Provider on 01-28-2023 [facility] No Panel Informationon 01-26 Radiology Study observation (narrative) [facility] XR ELBOW GENERAL 2V AP/LAT R IGHTon 01-26-2023 [facility] XR Elbow - right AP and Late ralon 01-26-2023 IMPRESSION: Mild sof t tissue calcification. Please clinically correlate. Plant Control Aide: LING Transcribe Date/Time: Jan 26 2023 4:49P Dictated by : BAILEE SYKES MD This examination was interpreted and the report reviewed and electronically signed by: BAILEE SYKES MD on Jan 26 2023 4:51PM EST DIVISION OF RADIOLOGY * * *Final Report* * * DATE OF EXAM: Jan 26 2023 3:43PM WOX [id number] - XR ELBOW 2V AP/LAT RT / PROCEDURE REASON: Right elbow pain * * * * Physician Interpretation * * * * EXAM TITLE: XR ELBOW 2V AP/LAT RT EXAM DATE/TIME: 01/26/2023 3:43 PM COMPARISON: None. CLINICAL INDICATION/HISTORY: Pain. TECHNIQUE: AP and lateral views of the right elbow are presented. FINDINGS: No fractures or subluxations are noted. The radiocapitellar and ulnotrochlear joint spaces are maintained. There is no fat pad sign to suggest joint effusion. The mineralization of the bones is normal. Mild soft tissue calcification along the lateral epicondyle. DIVISION OF RADIOLOGY Provider, [facility] - 01/26/2023 * * *Final Report* * * DATE OF EXAM: Jan 26 2023 3:43PM WOX [id number] - XR ELBOW 2V AP/LAT RT / PROCEDURE REASON: Right elbow pain * * * * Physician Interpretation * * * * EXAM TITLE: XR ELBOW 2V AP/LAT RT EXAM DATE/TIME: 01/26/2023 3:43 PM COMPARISON: None. CLINICAL INDICATION/HISTORY: Pain. TECHNIQUE: AP and lateral views of the right elbow are presented. FINDINGS: No fractures or subluxations are noted. The radiocapitellar and ulnotrochlear joint spaces are maintained. There is no fat pad sign to suggest joint effusion. The mineralization of the bones is normal. Mild soft tissue calcification along the lateral epicondyle. IMPRESSION IMPRESSION: Mild soft tissue calcification. Please clinically correlate. Plant Control Aide: LING Transcribe Date/Time: Jan 26 2023 4:49P Dictated by : BAILEE SYKES MD This examination was interpreted and the report reviewed and electronically signed by: BAILEE SYKES MD on Jan 26 2023 4:51PM [facility] Basophil percentageOrdered B y: Dr. Michel on 12-08-2022 Bilirubin [Mass/Vol] 0.40 mg/dL 0.20-1.00 [facility] Comment on above: For patients on eltr ombopag therapy, use of Dimension [place] TBIL is not recommended. Cholesterol [Mass/Vol] 161 mg/dL <200 [facility] Comment on above: <200 mg/dL Desirable 200-240 mg/dL Borderline >240 mg/dL High Risk Protein [Mass/Vol] 7.7 g/dL 6.4-8.2 [facility] Triglyceride [Mass/Vol] 182 mg/dL <199 [facility] Comment on above: The drugs N-Acetylcy steine and Metamizole may falsely depress this assay.Serum Triglycerides Reference Interval Normal <150 mg/dL Borderline high 150 - 199 mg/dL High 200 - 499 mg/dL Very High > or = 500 mg/dL Direct bilirubinOrdered By: Dr. Michel on 12-08-2022 Bilirubin.direct [Mass/Vol] 0.11 mg/dL 0.00-0.30 [facility] Laboratory - Chemistry and C hemistry - challengeOrdered By: Dr. Michel on 12-08-2022 ALP [Catalytic activity/Vol] 114 U/L 45-117 [facility] ALT [Catalytic activity/Vol] 46 U/L 13-56 [facility] Globulin (S) [Mass/Vol] 4.1 g/dL 2.2-4.2 [facility] Serum or plasma albumin cass urement (mass/volume)Ordered By: Dr. Michel on 12-08-2022 Albumin [Mass/Vol] 3.6 g/dL 3.2-5.0 [facility] Serum or plasma cholesterol in HDL measurement (mass/volume)Ordered By: Dr. Michel on 12-08-2022 Cholesterol in HDL [Mass/Vol] 37 mg/dL >40 [facility] Comment on above: The drugs N-Acetylcy steine and Metamizole may falsely depress this assay. Reference Range HDL <40 mg/dL Low HDL Cholesterol HDL >or= 60 mg/dL High HDL Cholesterol Serum or plasma cholesterol in VLDL measurement (mass/volume)Ordered By: Dr. Michel on 12-08-2022 Cholesterol in VLDL [Mass/Vol] 36 mg/dL 5-40 [facility] Serum or plasma low density lipoprotein (LDL) cholesterol measurement (mass/volume)Ordered By: Dr. Michel on 12-08-2022 Cholesterol in LDL [Mass/Vol] 88 mg/dL 0-130 [facility] Thin prep Papanicolaou smear with manual screeningOrdered By: Dr. Michel on 12-08-2022 Thin prep Papanicolaou smear with manual screening 23 U/L 15-37 [facility] Basophil percentageOrdered B y: Cristin Pettit on 11-30-2022 Chloride [Moles/Vol] 105 mmol/L 98-107 [facility] Glucose [Mass/Vol] 171 mg/dL 74-106 [facility] Comment on above: Fasting Glucose resu lt greater than or equal to 126 mg/dL suggests DIABETES MELLITUS per A.D.A. criteria. Potassium [Moles/Vol] 3.8 mmol/L 3.5-5.1 [facility] Sodium [Moles/Vol] 140 mmol/L 136-145 [facility] WBC (Bld) [#/Vol] 6.3 10*3/uL 4.4-11.0 [facility] Blood erythrocytes count (nu mber/volume)Ordered By: Cristin Pettit on 11-30-2022 RBC (Bld) [#/Vol] 4.88 10*6/uL 4.2-5.4 [facility] Blood hemoglobin measurement (mass/volume)Ordered By: Cristin Pettit on 11-30-2022 Hemoglobin (Bld) [Mass/Vol] 15.0 g/dL 12.0-15.0 [facility] Blood platelet mean volumeOr dered By: Cristin Pettit on 11-30-2022 Platelet mean volume (Bld) [Entitic vol] 9.6 fL 6.2-12.0 [facility] Determination of erythrocyte mean corpuscular volume (MCV)Ordered By: Cristin Pettit on 11-30-2022 MCV (RBC) [Entitic vol] 91.6 fL 81-99 [facility] Hematocrit Auto (Bld) [Volum e fraction]Ordered By: Cristin Pettit on 11-30-2022 Hematocrit (Bld) [Volume fraction] 44.7 % 37-47 [facility] Laboratory - Chemistry and C hemistry - challengeOrdered By: Cristin Pettit on 11-30-2022 CO2 [Moles/Vol] 29.0 mmol/L 21.0-32.0 [facility] Magnesium [Mass/Vol] 2.1 mg/dL 1.6-2.6 [facility] Urea nitrogen/Creatinine [Mass ratio] 13.7 mg/mg 10-20 [facility] Laboratory - Hematology and Cell countsOrdered By: Cristin Pettit on 11-30-2022 Erythrocyte distribution width (RBC) [Entitic vol] 45.7 fL 35.1-43.9 [facility] Erythrocyte distribution width (RBC) [Ratio] 13.5 % 11.6-14.6 [facility] MCH (RBC) [Entitic mass] 30.7 pg 27.0-32.0 [facility] MCHC Auto (RBC) [Mass/Vol]Or dered By: Cristin Pettit on 11-30-2022 MCHC (RBC) [Mass/Vol] 33.6 g/dL 32-36 [facility] No Panel InformationOrdered By: Cristin Pettit on 11-30-2022 Estimated GFR (MDRD) Amer 107 mL/min >60 [facility] Comment on above: GFR Calc Estimated GFR (MDRD) Non-Af Amer 89 mL/min >60 [facility] Comment on above: Non- GFR Calc Thyroid Stimulating Hormone (TSH) 2.02 uIU/mL 0.358-3.74 [facility] Platelets bldOrdered By: Prieto Pettit on 11-30-2022 Platelets (Bld) [#/Vol] 215 10*3/uL 150-450 [facility] Serum or plasma calcium cass urement (mass/volume)Ordered By: Cristin Pettit on 11-30-2022 Calcium [Mass/Vol] 8.9 mg/dL 8.5-10.1 [facility] Serum or plasma creatinine m easurement (mass/volume)Ordered By: Cristin Pettit on 11-30-2022 Creatinine [Mass/Vol] 0.73 mg/dL 0.55-1.02 [facility] Comment on above: The validity of the calculated GFR & GFRAA in patients over 70 years has not been determined. Clinical correlation is essential. Serum or plasma urea nitroge n measurement (mass/volume)Ordered By: Cristin Pettit on 11-30-2022 Urea nitrogen [Mass/Vol] 10 mg/dL 7-18 [facility] Thin prep Papanicolaou smear with manual screeningOrdered By: Cristin Pettit on 11-30-2022 Thin prep Papanicolaou smear with manual screening 6 5-15 [facility] BRITTANY SCREENINGon 07-30-2022 [facility] Basophil percentageon 2021 WBC (Bld) [#/Vol] 7.1 10*3/uL 4.4-11.0 [facility] Work Phone: Blood erythrocytes count (nu mber/volume)on 05-29-2022 RBC (Bld) [#/Vol] 4.36 10*6/uL 4.2-5.4 [facility] Work Phone: Blood hemoglobin measurement (mass/volume)on 05-29-2022 Hemoglobin (Bld) [Mass/Vol] 10.9 g/dL 12.0-15.0 [facility] Work Phone: Blood platelet mean volumeon 05-29-2022 Platelet mean volume (Bld) [Entitic vol] 10.1 fL 6.2-12.0 [facility] Work Phone: Determination of erythrocyte mean corpuscular volume (MCV)on 05-29-2022 MCV (RBC) [Entitic vol] 81.0 fL 81-99 [facility] Work Phone: Glucose Glucometer (BldC) [M ass/Vol]on 05-29-2022 Glucose [Mass/Vol] 167 mg/dL 74-106 [facility] Work Phone: Comment on above: MANAGEMENT OF PATIEN T CARE PER NURSING PROTOCOL Hematocrit Auto (Bld) [Volum e fraction]on 05-29-2022 Hematocrit (Bld) [Volume fraction] 35.3 % 37-47 [facility] Work Phone: Laboratory - Hematology and Cell countson 05-29-2022 Erythrocyte distribution width (RBC) [Entitic vol] 52.6 fL 35.1-43.9 [facility] Work Phone: Erythrocyte distribution width (RBC) [Ratio] 17.8 % 11.6-14.6 [facility] Work Phone: MCH (RBC) [Entitic mass] 25.0 pg 27.0-32.0 [facility] Work Phone: MCHC Auto (RBC) [Mass/Vol]on 05-29-2022 MCHC (RBC) [Mass/Vol] 30.9 g/dL 32-36 [facility] Work Phone: [phone] Platelets bldon 05-29-2022 Platelets (Bld) [#/Vol] 176 10*3/uL 150-450 [facility] Work Phone: Basophil percentageon 2021 Chloride [Moles/Vol] 107 mmol/L 98-107 [facility] Work Phone: Glucose [Mass/Vol] 97 mg/dL 74-106 [facility] Work Phone: [phone] Potassium [Moles/Vol] 4.1 mmol/L 3.5-5.1 [facility] Work Phone: Sodium [Moles/Vol] 139 mmol/L 136-145 [facility] Work Phone: [phone] INR in Blood by Coagulation assayon 05-25-2022 INR Coag (Bld) [Relative time] 1.1 {INR} [facility] Work Phone: Laboratory - Chemistry and C hemistry - challengeon 05-25-2022 CO2 [Moles/Vol] 25.0 mmol/L 21.0-32.0 [facility] Work Phone: Urea nitrogen/Creatinine [Mass ratio] 14.7 mg/mg 10-20 [facility] Work Phone: [phone] Magnesium [Mass/Vol] 2.1 mg/dL 1.6-2.6 [facility] Work Phone: Laboratory - Coagulationon 0 05-25-2022 aPTT Coag (Bld) [Time] 27.4 s 24.1-36.2 [facility] Work Phone: PT Coag (PPP) [Time] 13.8 s 11.7-14.9 [facility] Work Phone: No Panel Informationon 05-25 Estimated GFR (MDRD) Amer 117 mL/min >60 [facility] Work Phone: Comment on above: GFR Calc Estimated GFR (MDRD) Non-Af Amer 97 mL/min >60 [facility] Work Phone: Comment on above: Non- GFR Calc Serum or plasma calcium cass urement (mass/volume)on 05-25-2022 Calcium [Mass/Vol] 8.7 mg/dL 8.5-10.1 [facility] Work Phone: Serum or plasma creatinine m easurement (mass/volume)on 05-25-2022 Creatinine [Mass/Vol] 0.68 mg/dL 0.55-1.02 [facility] Work Phone: Comment on above: The validity of the calculated GFR & GFRAA in patients over 70 years has not been determined. Clinical correlation is essential. Serum or plasma urea nitroge n measurement (mass/volume)on 05-25-2022 Urea nitrogen [Mass/Vol] 10 mg/dL 7-18 [facility] Work Phone: Thin prep Papanicolaou smear with manual screeningon 05-25-2022 Thin prep Papanicolaou smear with manual screening 7 5-15 [facility] Work Phone: XR CHEST 2V FRONTAL/LATon [facility] XR Chest PA and Lateralon IMPRESSION: No acute radiographic abnormality. Plant Control Aide: PSCB Transcribe Date/Time: Apr 23 2022 11:16A Dictated by : MARCELLA TORRES MD This examination was interpreted and the report reviewed and electronically signed by: MARCELLA TORRES MD on Apr 23 2022 11:18AM EST ZZZ_DO_NOT_ USE_DIVISIO N OF RADIOLOGY * * *Final Report* * * DATE OF EXAM: Apr 23 2022 11:07AM WOX [id number] - XR CHEST 2V FRONTAL/LAT / PROCEDURE REASON: Cough * * * * Physician Interpretation * * * * EXAMINATION: CHEST RADIOGRAPH (2 VIEW FRONTAL & LATERAL) CLINICAL HISTORY: Cough MQ: XC2_6 EXAM DATE/TIME: 04/23/2022 11:07 AM COMPARISON: No relevant prior studies available. RESULT: Lines, tubes, and devices: None. Lungs and pleura: No consolidation. No lung mass. No pleural effusion. No pneumothorax. Cardiomediastinal silhouette: Normal cardiomediastinal silhouette. Bones and soft tissues: Unremarkable. ZZZ_DO_NOT_ USE_DIVISIO N OF RADIOLOGY Provider, Wilman Corey [facility] - 04/23/2022 * * *Final Report* * * DATE OF EXAM: Apr 23 2022 11:07AM WOX [id number] - XR CHEST 2V FRONTAL/LAT / PROCEDURE REASON: Cough * * * * Physician Interpretation * * * * EXAMINATION: CHEST RADIOGRAPH (2 VIEW FRONTAL & LATERAL) CLINICAL HISTORY: Cough MQ: XC2_6 EXAM DATE/TIME: 04/23/2022 11:07 AM COMPARISON: No relevant prior studies available. RESULT: Lines, tubes, and devices: None. Lungs and pleura: No consolidation. No lung mass. No pleural effusion. No pneumothorax. Cardiomediastinal silhouette: Normal cardiomediastinal silhouette. Bones and soft tissues: Unremarkable. IMPRESSION IMPRESSION: No acute radiographic abnormality. Plant Control Aide: PSCB Transcribe Date/Time: Apr 23 2022 11:16A Dictated by : MARCELLA TORRES MD This examination was interpreted and the report reviewed and electronically signed by: MARCELLA TORRES MD on Apr 23 2022 11:18AM EST [facility] Radiology Study observation (narrative) [facility] XR Chest PA and LateralOrder ed By: [facility] Provider on 04-23-2022 [facility] Vital Signs Date Time Vital Sign Value Performing Clinician Facility 04-26-2025 09:19-0400 Body height 170.[address] David Fink MD Work Phone: [facility] 04-26-2025 09:190400 Body mass index (BMI) [Ratio] 34 kg/m2 Dr. David Fink MD Work Phone: [facility] 04-26-2025 09:19-0400 Body temperature 97.4 [degF] Dr. David Fink MD Work Phone: 5(905)255-262794 [place] [address] 04-26-2025 09:19-0400 Body weight 98.[address] David Fink MD Work Phone: 6(191)350-997530 [place] [address] 04-26-2025 09:19-0400 Diastolic blood pressure 74 mm[Hg] Dr. David Fink MD Work Phone: 6(055)844-252630 [place] [address] 04-26-2025 09:19-0400 Heart rate 64 /min Dr. David Fink MD Work Phone: 4(191)880-995530 [place] [address] 04-26-2025 09:19-0400 Respiratory rate 16 /min Dr. David Fink MD Work Phone: 2(563)666-864830 [place] [address] 04-26-2025 09:19-0400 SaO2% (BldA) [Mass fraction] 95 % Dr. David Fink MD Work Phone: 5(867)924-813830 [place] [address] 04-26-2025 09:19-0400 Systolic blood pressure 116 mm[Hg] Dr. David Fink MD Work Phone: 4(210)181-838630 [place] [address] 04-19-2025 09:06-0400 Body height 170.[address] David Fink MD Work Phone: 0(407)341-464130 [place] [address] 04-19-2025 09:06-0400 Body mass index (BMI) [Ratio] 34.9 kg/m2 Dr. David Fink MD Work Phone: 2(439)419-963230 [place] [address] 04-19-2025 09:06-0400 Body temperature 98.5 [degF] Dr. David Fink MD Work Phone: 0(720)363-832330 [place] [address] 04-19-2025 09:06-0400 Body weight 101.[address] David Fink MD Work Phone: 6(392)665-720030 [place] [address] 04-19-2025 09:06-0400 Diastolic blood pressure 74 mm[Hg] Dr. David Fink MD Work Phone: 3(927)325-350430 [place] [address] 04-19-2025 09:06-0400 Heart rate 80 /min Dr. David Fink MD Work Phone: 9(848)456-964230 [place] [address] 04-19-2025 09:06-0400 Respiratory rate 16 /min Dr. David Fink MD Work Phone: 1(318)740-647730 [place] [address] 04-19-2025 09:06-0400 SaO2% (BldA) [Mass fraction] 94 % Dr. David Fink MD Work Phone: 4(336)425-311730 [place] [address] 04-19-2025 09:06-0400 Systolic blood pressure 131 mm[Hg] Dr. David Fink MD Work Phone: 6(332)531-157230 [place] [address] 04-18-2025 10:46-0400 Body mass index (BMI) [Ratio] 34.9 kg/m2 Dr. David Fink MD Work Phone: 5(447)336-567030 [place] [address] 04-18-2025 10:46-0400 Body weight 101.[address] David Fink MD Work Phone: 9(732)130-350330 [place] [address] 04-18-2025 10:46-0400 Diastolic blood pressure 78 mm[Hg] Dr. David Fink MD Work Phone: 5(335)927-075830 [place] [address] 04-18-2025 10:46-0400 Heart rate 80 /min Dr. David Fink MD Work Phone: 1(193)479-402930 [place] [address] 04-18-2025 10:46-0400 Respiratory rate 16 /min Dr. David Fink MD Work Phone: 1(196)993-840230 [place] [address] 04-18-2025 10:46-0400 Systolic blood pressure 118 mm[Hg] Dr. David Fink MD Work Phone: 5(950)662-556730 [place] [address] 04-04-2025 14:17-0400 Body height 170.[address] David Fink MD Work Phone: 6(028)144-867730 [place] [address] 04-04-2025 14:13-0400 Body mass index (BMI) [Ratio] 35.2 kg/m2 Dr. David Fink MD Work Phone: 3(630)380-505930 [place] [address] 04-04-2025 14:13-0400 Body temperature 98.2 [degF] Dr. David Fink MD Work Phone: 0(973)024-369430 [place] [address] 04-04-2025 14:13-0400 Body weight 102.[address] David Fink MD Work Phone: 7(433)943-572830 [place] [address] 04-04-2025 14:13-0400 Diastolic blood pressure 80 mm[Hg] Dr. David Fink MD Work Phone: 5(684)036-231130 [place] [address] 04-04-2025 14:13-0400 Heart rate 83 /min Dr. David Fink MD Work Phone: 7(723)726-459230 [place] [address] 04-04-2025 14:13-0400 Respiratory rate 16 /min Dr. David Fink MD Work Phone: 9(185)838-510630 [place] [address] 04-04-2025 14:13-0400 SaO2% (BldA) [Mass fraction] 98 % Dr. David Fink MD Work Phone: 2(813)438-121530 [place] [address] 04-04-2025 14:13-0400 Systolic blood pressure 125 mm[Hg] Dr. David Fink MD Work Phone: 5(992)398-365630 [place] [address] 04-02-2025 13:15-0400 Body temperature 97.9 [degF] Dr. David Fink MD Work Phone: 8(011)997-080830 [place] [address] 04-02-2025 13:15-0400 Diastolic blood pressure 62 mm[Hg] Dr. David Fink MD Work Phone: 0(562)062-521330 [place] [address] 04-02-2025 13:15-0400 Heart rate 60 /min Dr. David Fink MD Work Phone: 5(066)725-373430 [place] [address] 04-02-2025 13:15-0400 Respiratory rate 16 /min Dr. David Fink MD Work Phone: 8(945)065-293630 [place] [address] 04-02-2025 13:15-0400 SaO2% (BldA) [Mass fraction] 96 % Dr. David Fink MD Work Phone: 8(293)021-919930 [place] [address] 04-02-2025 13:15-0400 Systolic blood pressure 116 mm[Hg] Dr. David Fink MD Work Phone: 1(500)483-920130 [place] [address] 04-02-2025 12:45-0400 Inhaled oxygen flow rate 2 L/min Dr. David Fink MD Work Phone: 2(351)362-735430 [place] [address] 04-02-2025 10:06-0400 Body height 170.[address] David Fink MD Work Phone: 9(723)250-618730 [place] [address] 04-02-2025 10:06-0400 Body mass index (BMI) [Ratio] 35.2 kg/m2 Dr. David Fink MD Work Phone: 3(266)769-395630 [place] [address] 04-02-2025 10:06-0400 Body weight [address] David Fink MD Work Phone: 3(329)504-952130 [place] [address] 03-29-2025 14:36-0400 Body weight 102.[address] David Fink MD Work Phone: 3(829)841-403430 [place] [address] 03-28-2025 15:36-0400 Body height 170.[address] David Fink MD Work Phone: 5(212)003-075930 [place] [address] 03-28-2025 15:36-0400 Body mass index (BMI) [Ratio] 35.3 kg/m2 Dr. David Fink MD Work Phone: 7(553)223-935130 [place] [address] 03-28-2025 15:36-0400 Body temperature 96.7 [degF] Dr. David Fink MD Work Phone: 0(997)958-475930 [place] [address] 03-28-2025 15:36-0400 Body weight 102.[address] David Fink MD Work Phone: 6(071)230-558330 [place] [address] 03-28-2025 15:36-0400 Diastolic blood pressure 77 mm[Hg] Dr. David Fink MD Work Phone: 6(504)800-845230 [place] [address] 03-28-2025 15:36-0400 Heart rate 78 /min Dr. David Fink MD Work Phone: 7(331)426-218630 [place] [address] 03-28-2025 15:36-0400 Respiratory rate 18 /min Dr. David Fink MD Work Phone: 2(888)337-046830 [place] [address] 03-28-2025 15:36-0400 SaO2% (BldA) [Mass fraction] 95 % Dr. David Fink MD Work Phone: [facility] 03-28-2025 15:36-0400 Systolic blood pressure 111 mm[Hg] Dr. David Fink MD Work Phone: 7(341)061-528994 [place] [address] 03-26-2025 13:32-0400 Body weight 102.[address] David Fink MD Work Phone: 0(080)447-012430 [place] [address] 03-26-2025 13:32-0400 Diastolic blood pressure 80 mm[Hg] Dr. David Fink MD Work Phone: 6(010)970-119694 [place] [address] 03-26-2025 13:32-0400 Heart rate 96 /min Dr. David Fink MD Work Phone: 2(687)609-205930 [place] [address] 03-26-2025 13:32-0400 Respiratory rate 17 /min Dr. David Fink MD Work Phone: 0(972)412-236130 [place] [address] 03-26-2025 13:32-0400 SaO2% (BldA) [Mass fraction] 95 % Dr. David Fink MD Work Phone: 1(264)021-725494 [place] [address] 03-26-2025 13:32-0400 Systolic blood pressure 121 mm[Hg] Dr. David Fink MD Work Phone: 8(788)141-616194 [place] [address] 03-21-2025 13:28-0400 Body temperature 97 [degF] Christopher Cunningham MD Work Phone: [facility] 03-21-2025 13:28-0400 Body weight 102.56 kg Christopher Cunningham MD Work Phone: [facility] 03-21-2025 13:28-0400 Diastolic blood pressure 57 mm[Hg] Christopher Cunningham MD Work Phone: [facility] 03-21-2025 13:28-0400 Heart rate 64 /min Christopher Cunningham MD Work Phone: [facility] 03-21-2025 13:28-0400 Respiratory rate 18 /min Christopher Cunningham MD Work Phone: [facility] 03-21-2025 13:28-0400 SaO2% (BldA) [Mass fraction] 99 % Christopher Cunningham MD Work Phone: [facility] 03-21-2025 13:28-0400 Systolic blood pressure 123 mm[Hg] Christopher Cunningham MD Work Phone: [facility] 02-26-2025 11:18-0400 Body mass index (BMI) [Ratio] 34.9 kg/m2 Dr. David Fink MD Work Phone: 1(159)687-084594 [place] [address] 02-26-2025 11:18-0400 Body temperature 98.5 [degF] Dr. David Fink MD Work Phone: 8(700)260-834530 [place] [address] 02-26-2025 11:18-0400 Body weight 101.[address] David Fink MD Work Phone: 3(978)062-478094 [place] [address] 02-26-2025 11:18-0400 Diastolic blood pressure 75 mm[Hg] Dr. David Fink MD Work Phone: 4(677)052-219394 [place] [address] 02-26-2025 11:18-0400 Heart rate 76 /min Dr. David Fink MD Work Phone: [facility] 02-26-2025 11:18-0400 Respiratory rate 18 /min Dr. David Fink MD Work Phone: 9(005)269-302694 [place] [address] 02-26-2025 11:18-0400 SaO2% (BldA) [Mass fraction] 96 % Dr. David Fink MD Work Phone: [facility] 02-26-2025 11:18-0400 Systolic blood pressure 116 mm[Hg] Dr. David Fink MD Work Phone: [facility] 02-14-2025 13:52-0400 Body height 170.2 cm Ashok Herbert [employer]AD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 Work Phone: [email or web address] 02-14-2025 13:52-0400 Body mass index (BMI) [Ratio] 34.64 kg/m2 Ashok Herbert BLADDER BLOWER - 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 Work Phone: [email or web address] 02-14-2025 13:52-0400 Body weight 100.34 kg Ashok Herbert BLADDER BLOWER - 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 Work Phone: [email or web address] 02-14-2025 13:52-0400 Diastolic blood pressure 78 mm[Hg] Ashok Herbert BLADDER BLOWER - 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 Work Phone: [email or web address] 02-14-2025 13:52-0400 Heart rate 80 /min Ashok Herbert BLADDER BLOWER - 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 Work Phone: [email or web address] 02-14-2025 13:52-0400 Systolic blood pressure 122 mm[Hg] Ashok Herbert BLADDER BLOWER - 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 Work Phone: [email or web address] 01-27-2025 09:10-0400 Body temperature 96.49 [degF] Darvin Grady MD Work Phone: [email or web address] 01-27-2025 09:10-0400 Diastolic blood pressure 51 mm[Hg] Darvin Grady MD Work Phone: [email or web address] 01-27-2025 09:10-0400 Heart rate 59 /min Darvin Grady MD Work Phone: [email or web address] 01-27-2025 09:10-0400 Respiratory rate 18 /min Darvin Grady MD Work Phone: [email or web address] 01-27-2025 09:10-0400 SaO2% (BldA) [Mass fraction] 94 % Darvin Grady MD Work Phone: [email or web address] 01-27-2025 09:10-0400 Systolic blood pressure 97 mm[Hg] Darvin Grady MD Work Phone: [email or web address] 01-26-2025 06:40-0400 Body height 170.2 cm Darvin Grady MD Work Phone: [email or web address] 01-26-2025 06:40-0400 Body mass index (BMI) [Ratio] 35.21 kg/m2 Darvin Grady MD Work Phone: [email or web address] 01-26-2025 06:40-0400 Body weight 102 kg Darvin Grady MD Work Phone: [facility] 01-17-2025 10:23-0500 Body height 170.2 cm Darvin Grady MD Work Phone: [facility] 01-17-2025 10:23-0500 Body mass index (BMI) [Ratio] 36.98 kg/m2 Darvin Grady MD Work Phone: [facility] 01-17-2025 10:23-0500 Body weight 107.09 kg Darvin Grady MD Work Phone: [facility] 01-17-2025 10:23-0500 Diastolic blood pressure 68 mm[Hg] Darvin Grady MD Work Phone: [facility] 01-17-2025 10:23-0500 Heart rate 69 /min Darvin Grady MD Work Phone: [facility] 01-17-2025 10:23-0500 SaO2% (BldA) [Mass fraction] 95 % Darvin Grady MD Work Phone: [facility] 01-17-2025 10:23-0500 Systolic blood pressure 122 mm[Hg] Darvin Grady MD Work Phone: [facility] 01-10-2025 13:05-0500 Body height 170.[address] David Fink MD Work Phone: [facility] 01-10-2025 13:05-0500 Body mass index (BMI) [Ratio] 37.3 kg/m2 Dr. David Fink MD Work Phone: [facility] 01-10-2025 13:05-0500 Body temperature 96.6 [degF] Dr. David Fink MD Work Phone: [facility] 01-10-2025 13:05-0500 Body weight 108.[address] David Fink MD Work Phone: [facility] 01-10-2025 13:05-0500 Diastolic blood pressure 72 mm[Hg] Dr. David Fink MD Work Phone: 2(743)263-677530 [place] [address] 01-10-2025 13:05-0500 Heart rate 74 /min Dr. David Fink MD Work Phone: 6(755)232-758530 [place] [address] 01-10-2025 13:05-0500 Respiratory rate 18 /min Dr. David Fink MD Work Phone: 6(626)722-236730 [place] [address] 01-10-2025 13:05-0500 SaO2% (BldA) [Mass fraction] 93 % Dr. David Fink MD Work Phone: 1(119)398-164530 [place] [address] 01-10-2025 13:05-0500 Systolic blood pressure 110 mm[Hg] Dr. David Fink MD Work Phone: 7(329)132-891530 [place] [address] 01-08-2025 21:55-0500 Body temperature 98.3 [degF] Dr. David Fink MD Work Phone: 6(046)086-701430 [place] [address] 01-08-2025 21:55-0500 Diastolic blood pressure 89 mm[Hg] Dr. David Fink MD Work Phone: 4(730)964-389230 [place] [address] 01-08-2025 21:55-0500 Heart rate 78 /min Dr. David Fink MD Work Phone: 9(121)793-104230 [place] [address] 01-08-2025 21:55-0500 Respiratory rate 16 /min Dr. David Fink MD Work Phone: 9(291)203-598430 [place] [address] 01-08-2025 21:55-0500 SaO2% (BldA) [Mass fraction] 98 % Dr. David Fink MD Work Phone: 0(105)337-356430 [place] [address] 01-08-2025 21:55-0500 Systolic blood pressure 128 mm[Hg] Dr. David Fink MD Work Phone: 0(902)903-297730 [place] [address] 01-08-2025 17:57-0500 Body mass index (BMI) [Ratio] 36.7 kg/m2 Dr. David Fink MD Work Phone: 9(284)031-996830 [place] [address] 01-08-2025 17:57-0500 Body weight 106.[address] David Fink MD Work Phone: [facility] 12-24-2024 13:51-0500 Body mass index (BMI) [Ratio] 38.19 kg/m2 Isaíasmaría Ribeiro BLADDER BLOWER.CRACKER AND 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 Work Phone: [facility] 12-24-2024 13:51-0500 Body temperature 97.81 [degF] Isaías Glorymassimo BLADDER BLOWER.CRACKER AND 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 Work Phone: [facility] 12-24-2024 13:51-0500 Body weight 110.6 kg Isaías Quintin BLADDER BLOWER.CRACKER AND 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 Work Phone: [facility] 12-24-2024 13:51-0500 Diastolic blood pressure 68 mm[Hg] Isaías Ribeiro BLADDER BLOWER.CRACKER AND 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 Work Phone: [facility] 12-24-2024 13:51-0500 Heart rate 80 /min Isaías Ribeiro BLADDER BLOWER.CRACKER AND 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 Work Phone: [facility] 12-24-2024 13:51-0500 Respiratory rate 18 /min Isaías Glorymassimo BLADDER BLOWER.CRACKER AND 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 Work Phone: [facility] 12-24-2024 13:51-0500 SaO2% (BldA) [Mass fraction] 96 % Isaíasmaría Ribeiro BLADDER BLOWER.CRACKER AND 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 Work Phone: [facility] 12-24-2024 13:51-0500 Systolic blood pressure 126 mm[Hg] Isaías Ribeiro BLADDER BLOWER.CRACKER AND 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 Work Phone: [facility] 08-02-2024 18:51-0400 Body mass index (BMI) [Ratio] 38.5 kg/m2 Isaías Holdermassimo BLADDER BLOWER.CRACKER AND 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 Work Phone: [facility] 08-02-2024 18:51-0400 Body temperature 98.01 [degF] Isaías Holdermassimo BLADDER BLOWER.CRACKER AND 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 Work Phone: [facility] 08-02-2024 18:51-0400 Body weight 111.5 kg Isaías Ribeiro BLADDER BLOWER.CRACKER AND 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 Work Phone: [facility] 08-02-2024 18:51-0400 Diastolic blood pressure 76 mm[Hg] Isaías Ribeiro BLADDER BLOWER.CRACKER AND 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 Work Phone: [facility] 08-02-2024 18:51-0400 Heart rate 93 /min Isaías Ribeiro BLADDER BLOWER.CRACKER AND 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 Work Phone: [facility] 08-02-2024 18:51-0400 Respiratory rate 20 /min Isaías Ribeiro BLADDER BLOWER.CRACKER AND 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 Work Phone: [facility] 08-02-2024 18:51-0400 SaO2% (BldA) [Mass fraction] 94 % Isaías Springermassimo BLADDER BLOWER.CRACKER AND 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 Work Phone: [facility] 08-02-2024 18:51-0400 Systolic blood pressure 119 mm[Hg] Isaías Springermassimo BLADDER BLOWER.CRACKER AND 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 Work Phone: [facility] 04-18-2024 12:13-0400 Body mass index (BMI) [Ratio] 38.81 kg/m2 Juana Linton BLADDER BLOWER.CRACKER AND 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 Work Phone: [facility] 04-18-2024 12:13-0400 Body temperature 98.49 [degF] Juana Linton BLADDER BLOWER.CRACKER AND 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 Work Phone: [facility] 04-18-2024 12:13-0400 Body weight 112.4 kg Juana Linton BLADDER BLOWER.CRACKER AND 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 Work Phone: [facility] 04-18-2024 12:13-0400 Diastolic blood pressure 68 mm[Hg] Juana Linton BLADDER BLOWER.CRACKER AND 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 Work Phone: [facility] 04-18-2024 12:13-0400 Heart rate 98 /min Juana Linton BLADDER BLOWER.CRACKER AND 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 Work Phone: [facility] 04-18-2024 12:13-0400 Respiratory rate 16 /min Juana Linton BLADDER BLOWER.CRACKER AND 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 Work Phone: [facility] 04-18-2024 12:13-0400 SaO2% (BldA) [Mass fraction] 95 % Jauna Linton BLADDER BLOWER.CRACKER AND 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 Work Phone: [facility] 04-18-2024 12:13-0400 Systolic blood pressure 118 mm[Hg] Juana Linton BLADDER BLOWER.CRACKER AND 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 Work Phone: [facility] 03-23-2024 10:40-0400 Body mass index (BMI) [Ratio] 39.47 kg/m2 Cinthya Praisler-Wood BLADDER BLOWER.CRACKER AND 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 Work Phone: [facility] 03-23-2024 10:40-0400 Body temperature 97.59 [degF] Cinthya Praisler-Wood BLADDER BLOWER.CRACKER AND 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 Work Phone: [facility] 03-23-2024 10:40-0400 Body weight 114.3 kg Cinthya Praisler-Wood BLADDER BLOWER.[facility] Work Phone: [facility] 03-23-2024 10:40-0400 Diastolic blood pressure 64 mm[Hg] Cinthya Praisler-Wood BLADDER BLOWER.CRACKER AND 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 Work Phone: [facility] 03-23-2024 10:40-0400 Heart rate 109 /min Cinthya Praisler-Wood BLADDER BLOWER.CRACKER AND 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 Work Phone: [facility] 03-23-2024 10:40-0400 Respiratory rate 16 /min Cinthya Praisler-Wood BLADDER BLOWER.CRACKER AND 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 Work Phone: [facility] 03-23-2024 10:40-0400 SaO2% (BldA) [Mass fraction] 98 % Cinthya Praisler-Wood BLADDER BLOWER.CRACKER AND 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 Work Phone: [facility] 03-23-2024 10:40-0400 Systolic blood pressure 138 mm[Hg] Cinthya Praisler-Wood BLADDER BLOWER.CRACKER AND 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 Work Phone: [facility] 03-01-2023 14:29-0400 Body weight 108.41 kg Dvaid Fink MD Work Phone: [facility] 03-01-2023 14:29-0400 Diastolic blood pressure 72 mm[Hg] David Fink MD Work Phone: [facility] 03-01-2023 14:29-0400 Heart rate 58 /min David Fink MD Work Phone: [facility] 03-01-2023 14:29-0400 SaO2% (BldA) [Mass fraction] 95 % David Fink MD Work Phone: [facility] 03-01-2023 14:29-0400 Systolic blood pressure 112 mm[Hg] David Fink MD Work Phone: [facility] 01-26-2023 14:37-0400 Body height 170.2 cm David Fink MD Work Phone: [facility] 01-26-2023 14:37-0400 Body weight 111.13 kg David Fink MD Work Phone: [facility] 01-26-2023 14:37-0400 Diastolic blood pressure 80 mm[Hg] David Fink MD Work Phone: [facility] 01-26-2023 14:37-0400 Heart rate 84 /min David Fink MD Work Phone: [facility] 01-26-2023 14:37-0400 SaO2% (BldA) [Mass fraction] 95 % David Fink MD Work Phone: [facility] 01-26-2023 14:37-0400 Systolic blood pressure 130 mm[Hg] David Fink MD Work Phone: [facility] 12-08-2022 15:16-0500 Body height 170.18 cm No Primary Care Physician [facility] 12-08-2022 15:16-0500 Body mass index (BMI) [Ratio] 38.3 kg/m2 No Primary Care Physician [facility] 12-08-2022 15:16-0500 Body weight 111.13 kg No Primary Care Physician [facility] 12-08-2022 15:16-0500 Diastolic blood pressure 64 mm[Hg] No Primary Care Physician [facility] 12-08-2022 15:16-0500 Heart rate 65 /min No Primary Care Physician [facility] 12-08-2022 15:16-0500 Respiratory rate 18 /min No Primary Care Physician [facility] 12-08-2022 15:16-0500 Systolic blood pressure 104 mm[Hg] No Primary Care Physician [facility] 07-27-2022 13:06-0400 Body height 169 cm David Fink MD Work Phone: [facility] 07-27-2022 13:06-0400 Body weight 101.61 kg David Fink MD Work Phone: [facility] 07-27-2022 13:06-0400 Diastolic blood pressure 62 mm[Hg] David Fink MD Work Phone: [facility] 07-27-2022 13:06-0400 Heart rate 68 /min David Fink MD Work Phone: [facility] 07-27-2022 13:06-0400 Systolic blood pressure 112 mm[Hg] David Fink MD Work Phone: [facility] 06-08-2022 14:02-0400 Body weight 99.34 kg Kyleigh Saucedo MD Work Phone: [facility] 06-08-2022 14:02-0400 Diastolic blood pressure 68 mm[Hg] Kyleigh Saucedo MD Work Phone: [facility] 06-08-2022 14:02-0400 Systolic blood pressure 118 mm[Hg] Kyleigh Saucedo MD Work Phone: [facility] 05-29-2022 15:33-0400 Body temperature 98 [degF] No Primary Care Physician [facility] Work Phone: 05-29-2022 15:33-0400 Diastolic blood pressure 60 mm[Hg] No Primary Care Physician [facility] Work Phone: 05-29-2022 15:33-0400 Heart rate 64 /min No Primary Care Physician [facility] Work Phone: 05-29-2022 15:33-0400 Respiratory rate 17 /min No Primary Care Physician [facility] Work Phone: 05-29-2022 15:33-0400 SaO2% (BldA) [Mass fraction] 95 % No Primary Care Physician [facility] Work Phone: 05-29-2022 15:33-0400 Systolic blood pressure 119 mm[Hg] No Primary Care Physician [facility] Work Phone: 05-28-2022 18:26-0400 Inhaled oxygen flow rate 2 L/min No Primary Care Physician [facility] Work Phone: 05-28-2022 14:46-0400 Body height 170.18 cm No Primary Care Physician [facility] Work Phone: 05-28-2022 14:46-0400 Body mass index (BMI) [Ratio] 36.6 kg/m2 No Primary Care Physician [facility] Work Phone: 05-28-2022 14:46-0400 Body weight 106.2 kg No Primary Care Physician [facility] Work Phone: 05-19-2022 13:54-0400 Body height 170.2 cm Kyleigh Saucedo MD Work Phone: [facility] 05-19-2022 13:54-0400 Body weight 107.5 kg Kyleigh Saucedo MD Work Phone: [facility] 05-19-2022 13:54-0400 Diastolic blood pressure 70 mm[Hg] Kyleigh Saucedo MD Work Phone: [facility] 05-19-2022 13:54-0400 Heart rate 74 /min Kyleigh Saucedo MD Work Phone: [facility] 05-19-2022 13:54-0400 Respiratory rate 16 /min Kyleigh Saucedo MD Work Phone: [facility] 05-19-2022 13:54-0400 Systolic blood pressure 126 mm[Hg] Kyleigh Saucedo MD Work Phone: [facility] 04-23-2022 10:39-0400 Body temperature 97 [degF] Juana Linton APRN.CRACKER AND 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 Work Phone: [facility] 04-23-2022 10:39-0400 Body weight 107.86 kg Juana Linton BLADDER BLOWER.CRACKER AND 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 Work Phone: [facility] 04-23-2022 10:39-0400 Diastolic blood pressure 84 mm[Hg] Juana Linton BLADDER BLOWER.CRACKER AND 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 Work Phone: [facility] 04-23-2022 10:39-0400 Heart rate 75 /min Juana Linton BLADDER BLOWER.CRACKER AND 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 Work Phone: [facility] 04-23-2022 10:39-0400 Respiratory rate 18 /min Juana Linton BLADDER BLOWER.CRACKER AND 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 Work Phone: [facility] 04-23-2022 10:39-0400 SaO2% (BldA) [Mass fraction] 96 % Juana Linton BLADDER BLOWER.CRACKER AND 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 Work Phone: [facility] 04-23-2022 10:39-0400 Systolic blood pressure 126 mm[Hg] Juana Linton BLADDER BLOWER.CRACKER AND 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 Work Phone: [facility] 03-19-2022 11:38-0400 Body weight 110.68 kg Kyleigh Saucedo MD Work Phone: [facility] 03-19-2022 11:38-0400 Diastolic blood pressure 70 mm[Hg] Kyleigh Saucedo MD Work Phone: [facility] 03-19-2022 11:38-0400 Systolic blood pressure 140 mm[Hg] Kyleigh Saucedo MD Work Phone: [facility] Encounters Encounter Date Encounter Type Care Provider Facility Start: 04-26-2025 End: 04-26-[address] Imani Persaud MD -[facility] Work Phone: Start: 04-26-2025 End: 04-26-[address] David Fink MD Work Phone: [facility] Work Phone: Start: 04-26-[address] Nomi Persaud MD -[facility] Start: 04-19-[address] Nomi Persaud MD -[facility] Start: 04-19-2025 End: 04-19-[address] Imani Persaud MD -[facility] Work Phone: Start: 04-19-2025 End: 04-19-[address] David Fink MD Work Phone: [facility] Work Phone: Start: 04-18-2025 End: 04-18-2025 ambulatory Keron Ross NP Facility:[facility] Start: 04-18-2025 End: 04-18-2025 Patient encounter procedure Keron Ross PRODUCT SUPPORT ENGINEER- -[facility] Work Phone: Start: 04-04-2025 End: 04-04-2025 Patient encounter procedure Delmis Corral PRODUCT SUPPORT ENGINEER-[facility] Work Phone: Start: 04-04-2025 End: 04-04-[address] David Fink MD Work Phone: [facility] Work Phone: Start: 04-02-2025 ambulatory Theo Collazo lity:[facility] Start: 04-02-2025 Non-patient / Non-visit Dr. Aria Richard MD -[facility] Start: 04-02-2025 End: 04-02-2025 Admission to same day surgery center Dr. Theo Richard MD [facility] Start: 04-02-2025 End: 04-02-[address] David Fink MD Work Phone: [facility] Work Phone: Start: 03-28-2025 End: 03-28-[address] Imani Persaud MD -[facility] Work Phone: Start: 03-28-2025 End: 03-28-[address] David Fink MD Work Phone: [facility] Work Phone: Start: 03-26-2025 End: 03-26-[address] David Fink MD Work Phone: [facility] Work Phone: Start: 03-26-2025 End: 03-26-[address] Imani Persaud MD -[facility] Work Phone: Start: 03-26-2025 End: 03-26-[address] 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 Imani Persaud MD -[facility] Work Phone: Start: 02-26-2025 End: 02-26-2025 ambulatory Imani Persaud Facility:[facility] Start: 02-16-2025 End: 02-16-2025 Telephone encounter Darvin Grayd MD Work Phone: [facility] [place] Start: 02-15-2025 End: 02-15-2025 Telephone encounter Darvin Grady MD Work Phone: [facility] [place] Start: 02-14-2025 End: 02-14-2025 Office outpatient visit 15 minutes Ashok Herbert BLADDER BLOWER - CRACKER AND 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 Work Phone: [facility] [place] Comment on above: Pelvic mass in femal e (Primary Dx); Postoperative follow-up; Yeast infection of the skin Start: 02-14-2025 End: 02-14-2025 Telephone encounter Darvin Grady MD Work Phone: [facility] [place] Start: 02-14-2025 End: 02-14-2025 ambulatory ASHOK HERBERT [facility] Start: 01-26-2025 End: 01-27-2025 Subsequent hospital visit by physician Darvin Grady MD Work Phone: [facility] Comment on above: Pelvic mass (Primary Dx); Intra-abdominal and pelvic swelling, mass and lump, unspecified site Start: 01-26-2025 End: 01-27-2025 Unknown DARVINCRISTAL GRADY [facility] Start: 01-23-2025 End: 01-23-2025 ambulatory DARVIN GRADY [facility] Start: 01-19-2025 End: 01-19-2025 Telephone encounter Darvin Grady MD Work Phone: [facility] Comment on above: Other [facility] Start: 01-17-2025 End: 01-17-2025 Manual pelvic examination Darvin Grady MD Work Phone: [facility] [place] Comment on above: Pelvic mass (Primary Dx) Start: 01-17-2025 End: 01-17-2025 Office outpatient new 30 minutes Darvin Grady MD Work Phone: [facility] [place] Comment on above: Pelvic mass in femal e (Primary Dx) Start: 01-17-2025 End: 01-17-2025 ambulatory Darvin Grady MD Work Phone: [facility] [place] Start: 01-12-2025 End: 01-12-[address] David Fink MD Work Phone: [facility] Work Phone: Start: 01-12-2025 End: 01-12-[address] Imani Persaud MD -Ultrasound, [facility] Work Phone: Start: 01-12-2025 End: 01-12-2025 ambulatory [facility] Facility:[facility] Start: 01-10-[address] Nomi Persaud MD -[facility] Start: 01-10-2025 End: 01-10-[address] Imani Persaud MD -[facility] Work Phone: Start: 01-10-2025 End: 01-10-2025 ambulatory [facility] Facility:[facility] Start: 01-08-2025 End: 01-08-2025 Emergency department patient visit Dr. Isaiah Villanueva DO -Emergency Department Work Phone: Start: 12-25-2024 End: 12-25-2024 Follow-up encounter Chace ALEX Work Phone: [facility] Start: 12-24-2024 End: 12-24-2024 ambulatory DAVID FINK Facility:[facility] Start: 12-24-2024 End: 12-24-2024 Office outpatient visit 25 minutes Isaías Ribeiro APRN.CNP Work Phone: [facility] Comment on above: Burning with loboti on (Primary Dx) Start: 10-03-2024 End: 10-09-2024 Telephone encounter Susy Smith APRN.CNP Work Phone: [facility] Comment on above: Results Start: 09-29-2024 End: 09-29-2024 [facility] Start: 09-29-2024 End: 09-29-2024 Subsequent hospital visit by physician Screen Mammo [facility] Comment on above: Encounter for screen ing mammogram for breast cancer [Z12.31] Start: 09-25-2024 End: 09-25-2024 ambulatory David Fink MD Work Phone: [facility] Comment on above: Mammogram Start: 09-25-2024 End: 09-25-2024 Telephone encounter David Fink MD Work Phone: Mammogram Comment on above: Orders Start: 08-02-2024 End: 08-02-2024 Subsequent hospital visit by physician Xr [facility] Work Phone: Radiology Comment on above: Acute cough [R05.1] Start: 08-02-2024 End: 08-02-2024 ambulatory [facility] Facility:[facility] Start: 08-02-2024 End: 08-02-2024 Office outpatient visit 25 minutes Isaías Ribeiro APRN.CRACKER AND 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 Work Phone: [facility] Comment on above: Acute cough (Primary Dx); Bronchitis Start: 08-02-2024 End: 08-02-2024 Telephone encounter Isaías Ribeiro APRN.CRACKER AND 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 Work Phone: [facility] Comment on above: Results Start: 04-18-2024 End: 04-18-[address] [facility] Facility:[facility] Start: 04-18-2024 End: 04-18-2024 Patient encounter procedure Juana Linton BLADDER BLOWER.CRACKER AND 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 Work Phone: [facility] Comment on above: Acute cough (Primary Dx); Rhinosinusitis Start: 03-23-2024 End: 03-23-[address] [facility] Facility:[facility] Start: 03-23-2024 End: 03-23-2024 Patient encounter procedure Cinthya Vaughan BLADDER BLOWER.CRACKER AND 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 Work Phone: [facility] Comment on above: Acute cough (Primary Dx); Viral URI; Viral bronchitis; Eye redness Start: 09-20-2023 Documentation procedure Mammog lala Coordinator [facility] Start: 09-20-2023 Letter encounter Mammography Coordinator [facility] Department Start: 09-17-2023 End: 09-17-2023 Subsequent hospital visit by physician Screen Mammo [facility] Comment on above: Encounter for screen ing mammogram for malignant neoplasm of breast [Z12.31] Start: 08-18-2023 Telephone encounter David Fink MD Work Phone: [facility] Comment on above: Patient Question Start: 03-01-2023 End: 03-01-2023 Patient encounter procedure David Fink MD Work Phone: [facility] Comment on above: GERD without esophag itis (Primary Dx); Adjustment disorder with other symptom Start: 02-16-2023 End: 02-16-2023 ambulatory Hilda Morin APRN.CRACKER AND 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 Work Phone: [facility] Comment on above: COVID-19 (Primary Dx ) Start: 02-16-2023 End: 02-16-2023 Telemedicine consultation with patient Hilda Morin APRN.CRACKER AND 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 Work Phone: [facility] Start: 01-28-2023 Telephone encounter David Fink MD Work Phone: [facility] Comment on above: Results Start: 01-26-2023 End: 01-26-2023 Subsequent hospital visit by physician Vivian [facility] Work Phone: Radiology Comment on above: Trigger little finge r of right hand [M65.351] Start: 01-26-2023 End: 01-26-2023 Patient encounter procedure David Fink MD Work Phone: [facility] Comment on above: 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, unspecified vessel or lesion type (HCC) (Primary Dx); Hyperlipidemia, mixed; Hyperglycemia; Obesity, Class I, BMI 30-34.9; Trigger little finger of right hand; Right elbow pain; Numbness; GERD without esophagitis; Cough, unspecified type; Adjustment disorder with anxious mood Start: 12-08-2022 Patient encounter procedure No Primary Care Physician [facility] Start: 12-08-2022 End: 12-08-2022 Patient encounter procedure No Primary Care Physician [facility] Start: 11-30-2022 End: 11-30-2022 ambulatory No Primary Care Physician [facility] Work Phone: Start: 11-30-2022 End: 11-30-2022 Patient encounter procedure No Primary Care Physician [facility] Start: 10-13-2022 Orders Only Tsering orellana MD Work Phone: [facility] Provider Adult Start: 07-30-2022 Documentation procedure Mammog lala Coordinator [facility] Start: 07-30-2022 Letter encounter Mammography Coordinator [facility] Department Start: 07-30-2022 End: 07-30-2022 Subsequent hospital visit by physician Screen Mammo [facility] Mammogram Comment on above: Obesity, Class I, BM I 30-34.9 [E66.9] Start: 07-28-2022 Telephone encounter David Fink MD Work Phone: [facility] Comment on above: Results Start: 07-27-2022 End: 07-27-2022 Patient encounter procedure David Fink MD Work Phone: [facility] Comment on above: 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, unspecified vessel or lesion type (HCC) (Primary Dx); Blood in stool; Hyperglycemia; Tobacco use; Hyperlipidemia, mixed; Neck mass Start: 06-25-2022 Telephone encounter David Fink MD Work Phone: [facility] Comment on above: Patient Question Start: 06-15-2022 ambulatory Kyleigh saeed MD Work Phone: OB/Gynecology Comment on above: Returning to work Start: 06-08-2022 End: 06-08-2022 Patient encounter procedure Kyleigh Saucedo MD Work Phone: OB/Gynecology Comment on above: Postop check (Primar y Dx) Start: 06-05-2022 Telephone encounter Kyleigh Saucedo MD Work Phone: OB/Gynecology Comment on above: Post Op (incision) Start: 05-28-2022 ambulatory Kyleigh saeed MD Work Phone: OB/Gynecology Comment on above: Uterine leiomyoma, u nspecified location (Primary Dx); Iron deficiency anemia due to chronic blood loss; Menorrhagia with regular cycle Start: 05-28-2022 Patient encounter procedure Kyleigh Saucedo MD Work Phone: [facility] Start: 05-28-2022 End: 05-29-2022 Evaluation and management of inpatient No Primary Care Physician [facility]Medical Surgical 3 Start: 05-25-2022 Non-patient / Non-visit No [facility] Physician [facility] Start: 05-25-2022 End: 05-25-2022 Patient encounter procedure No Primary Care Physician [facility] Start: 05-19-2022 End: 05-19-2022 Patient encounter procedure Kyleigh Saucedo MD Work Phone: OB/Gynecology Comment on above: Menorrhagia with irr egular cycle (Primary Dx); Uterine leiomyoma, unspecified location; Iron deficiency anemia due to chronic blood loss Start: 05-04-2022 Refill Kyleigh saeed MD Work Phone: OB/Gynecology Comment on above: Refill Request Start: 04-23-2022 End: 04-23-2022 Subsequent hospital visit by physician [facility]ian [facility] Work Phone: Radiology Comment on above: Cough [R05.9] Start: 04-23-2022 End: 04-23-2022 Patient encounter procedure Juana Lealgs BLADDER BLOWER.CRACKER AND 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 Work Phone: [facility] Comment on above: Cough (Primary Dx); URI, acute Start: 03-26-2022 Telephone encounter Kyleigh Saucedo MD Work Phone: OB/Gynecology Comment on above: Schedule Surgery Start: 03-19-2022 End: 03-19-2022 Patient encounter procedure Kyleigh Saucedo MD Work Phone: OB/Gynecology Comment on above: Menorrhagia with irr egular cycle (Primary Dx); Uterine leiomyoma, unspecified location; Iron deficiency anemia due to chronic blood loss Start: 02-27-2022 Refill Kyleigh saeed MD Work Phone: OB/Gynecology Comment on above: Refill Request Start: 02-04-2022 Refill Kyleigh saeed MD Work Phone: OB/Gynecology Comment on above: Refill Request; Refi ll Request Start: 10-10-2021 ambulatory [facility] Provider OB/Gynecol yakelin Comment on above: Test Results Start: 10-10-2021 E-mail encounter chace rodriguez caregiver [facility] Provider [facility] Start: 09-22-2021 Telephone encounter Kyleigh Saucedo MD Work Phone: OB/Gynecology Comment on above: Appointment Procedures Date Procedure Procedure Detail Performing Clinician Start: 04-26-[address] David Fink MD Work Phone: Start: 04-26-2025 Serum inorganic phos phate measurement Dr. David Fink MD Work Phone: Start: 04-19-[address] David Fink MD Work Phone: Start: 04-02-2025 Plain chest X-ray Dr. Aris Fink MD Work Phone: Start: 04-02-2025 Implantation to cardiovascular system Dr. David Fink MD Work Phone: Start: 04-02-2025 Fluoroscopic guidance Danny Fink MD Work Phone: Start: 03-26-2025 CT of thorax, abdome n and pelvis with contrast Dr. David Fink MD Work Phone: Start: 01-27-2025 Blood count complete automated Wendie Thompson Work Phone: Start: 01-26-2025 End: 01-26-2025 Exploratory laparotomy celiotomy w/wo biopsy spx Darvin Grady MD Work Phone: Start: 01-26-2025 End: 01-26-2025 Laparoscopy surg w/bx single/multiple Darvin Grady MD Work Phone: Start: 01-26-2025 End: 01-26-2025 Laparoscopy w/rmvl adnexal structures Darvin Grady MD Work Phone: Start: 01-26-2025 End: 01-26-2025 Lmtd lmphadec staging spx pel&para-aortic Darvin Grady MD Work Phone: Start: 01-26-2025 Ecg routine ecg w/le ast 12 lds trcg only w/o i&r Shasha Leahy BLADDER BLOWER - CRACKER AND 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 Work Phone: Start: 01-26-2025 Antibody screen DARVIN GRADY Comment on above: Order Comment: HOLD. Specimen is valid for 3 days - nurse to verify valid specimen Performed By: #### L [id number] #### Heavy Duty Truck Mechanic: KYREE WEATHERS ([id number]) [facility] ([facility]) [address] [place] [address] Start: 01-26-2025 ABO and Rh group [Ty pe] in Blood by Confirmatory method Darvin Grady MD Work Phone: Start: 01-26-2025 Basic metabolic pane l calcium total Shasha Leahy BLADDER BLOWER - CRACKER AND 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 Work Phone: Start: 01-26-2025 Blood typing serolog ic abo Darvin Grady MD Work Phone: Start: 01-12-[address] David Fink MD Work Phone: Start: 01-10-[address] fraction Dr[address] David Fink MD Work Phone: Start: 01-08-2025 Computed tomography of abdomen and pelvis with intravenous contrast Dr. David Fink MD Work Phone: Start: 01-08-2025 Urnls dip stick/tabl et reagent auto microscopy Dr. David Fink MD Work Phone: Start: 01-08-[address] David Fink MD Work Phone: Start: 01-08-2025 Measurement of renal function Dr. David Fink MD Work Phone: Comment on above: GFR Calc Start: 01-08-[address] Bucky Fink MD Work Phone: Start: 12-24-2024 Urnls dip stick/tabl et rgnt auto w/o microscopy Karena Arzola BLADDER BLOWER.CRACKER AND 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 Work Phone: Start: 09-29-2024 Mammography Darvin moncada MD Work Phone: Start: 08-02-2024 Radiologic exam ches t 2 views Isaías Ribeiro BLADDER BLOWER.CRACKER AND 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 Work Phone: Start: 09-17-2023 Screening mammograph y bi 2-view breast inc cad David Fink MD Work Phone: Start: 09-08-2023 Lipid 1996 panel - S noemi or Plasma Screen Wstr Start: 01-26-2023 Radex elbow 2 views Quinten yessica Fink MD Work Phone: Start: 07-30-2022 End: 07-30-2022 Screening mammography bi 2-view breast inc cad Sunday MCKNIGHTC Work Phone: Start: 07-24-2022 Lipid 1996 panel - S noemi or Plasma David Fink MD Work Phone: Start: 07-20-2022 Adult depression screening assessment David Fink MD Work Phone: Start: 05-28-2022 Total abdominal hysterectomy No Primary Care Physician Start: 04-23-2022 Radiologic exam ches t 2 views Juana Linton BLADDER BLOWER.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 AND 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 Work Phone: Start: 03-31-2021 History of placement of stent for coronary artery disease History of coronary artery stent placement Keron Ross PRODUCT SUPPORT ENGINEER-C Comment on above: [facility]-Bb[facility] LAD w/ 4.5 x 20 mm Veriflex 06/2014; [facility] RCA w/ 4.0 X 22 Orsiro 03/31/21 History of cholecystectomy History of cholecystectomy No Primary Care Physician Plan of Treatment Date Care Activity Detail Author Start: 2045 RSV Immunization for Adults (1 - 1-dose 75+ series) RSV Immunization for Adults (1 - 1-dose 75+ series) [facility] [email or web address] Start: 09-08-2028 Lipid 1996 panel - Serum or Plasma Lipid Screening [facility] Start: 09-08-2028 Lipid panel Lipid Screening [facility] Start: 07-24-2027 Lipid 1996 panel - Serum or Plasma Lipid Screening [facility] Start: 07-24-2027 LIPID SCREEN LIPID SCREEN [facility] Start: 09-23-2026 HPV TESTING HPV TESTING [facility] Start: 09-23-2026 PAP TESTING PAP TESTING [facility] Start: 09-23-2026 Screening for malignant neoplasm of cervix [facility] Start: 09-08-2026 Diabetes Screening Diabetes Screening [facility] Start: 03-20-2026 End: 03-20-2026 Patient encounter procedure 03/20/2026 2:00 PM EDT Office Visit Division of Medical Oncology [address] [place] [address] Christopher Cunningham MD [address] [place] [address] Division of Medical Oncology Start: 01-26-2026 DIABETES SCREEN DIABETES SCREEN [facility] Start: 01-26-2026 Diabetes Screening Diabetes Screening [facility] Start: 09-29-2025 Screening for malignant neoplasm of breast [facility] Start: 07-27-2025 DIABETES SCREEN DIABETES SCREEN [facility] Start: 07-24-2025 DIABETES SCREEN DIABETES SCREEN [facility] Start: 07-16-2025 Influenza vaccination Influenza Vaccine (Season Ended) [facility] Start: 04-26-2025 [facility] Start: 04-19-2025 Venous catheter care management [facility] Start: 04-19-2025 [facility] Start: 04-02-2025 Anesthesia access central venous circulation ANESTH VASCULAR ACCESS [facility] Start: 04-02-2025 Insj tunneled ctr vad w/subq port age 5 yr/> INSERT TUNNELED CV CATH [facility] Start: 04-02-2025 Patient referral [facility] Work Phone: Start: 04-02-2025 Patient discharge [facility] Start: 03-28-2025 Patient referral [facility] Work Phone: Start: 02-26-2025 Patient referral [facility] Work Phone: Start: 02-09-2025 End: 02-09-2025 Patient encounter procedure 02/09/2025 11:00 AM EDT Office Visit [facility] Gynecologic Oncology - [place] [address] [facility] [address] [place] [address] Ashok Herbert, BLADDER BLOWER - CRACKER AND 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 [address] [facility] [address] [place] [address] [facility] Gynecologic Oncology - [place] Start: 01-26-2025 End: 01-26-2025 Admission to same day surgery center 01/26/2025 8:30 AM EDT - 01/26/2025 10:00 AM EDT Surgery [facility] [address] [place] [address] Darvin Grady MD [address] [facility] [address] [place] [address] LAPAROTOMY, EXPLORATORY [75031 (CPT )] [facility] Comment on above: LAPAROTOMY, EXPLORATORY [34272 (CPT )] Start: 01-26-2025 End: 01-26-2025 Exploratory laparotomy celiotomy w/wo biopsy spx LAPAROTOMY, EXPLORATORY Intra-abdominal and pelvic swelling, mass and lump, unspecified site 01/26/2025 8:30 AM EDT [facility] Operating Room Start: 01-26-2025 End: 01-26-2025 Laparoscopy surg w/bx single/multiple LAPAROSCOPY, WITH BIOPSY Intra-abdominal and pelvic swelling, mass and lump, unspecified site 01/26/2025 8:30 AM EDT [facility] Operating Room Start: 01-26-2025 End: 01-26-2025 Laparoscopy w/rmvl adnexal structures LAPAROSCOPIC, SALPINGO-OOPHORECTOMY Intra-abdominal and pelvic swelling, mass and lump, unspecified site 01/26/2025 8:30 AM EDT [facility] Operating Room Start: 01-26-2025 End: 01-26-2025 Lmtd lmphadec staging spx pel&para-aortic LYMPHADENECTOMY, PARA-AORTIC OR PELVIC, LIMITED, FOR STAGING Intra-abdominal and pelvic swelling, mass and lump, unspecified site 01/26/2025 8:30 AM EDT [facility] Operating Room Start: 01-26-2025 Subsequent hospital visit by physician [facility] Start: 01-23-2025 End: 01-23-2025 Admission to establishment 01/23/2025 9:30 AM EDT Pre-Admission Testing [facility] Pre-Admit Testing [address] [place] [id number] Darvin Grady MD [address] [facility] [address] [place] [address] [facility]mit [facility] Start: 01-08-2025 [facility] Start: 01-08-2025 Referral to oncologist [facility] Start: 09-29-2024 End: 09-29-2024 Patient encounter procedure 09/29/2024 1:30 PM EST Appointment Mammogram [address] [place] [address] Encounter for screening mammogram for breast cancer [Z12.31] Mammogram Comment on above: Encounter for screening mammogram for br east cancer [Z12.31] Start: 09-17-2024 Mammography Mammogram Screening [facility] Start: 09-17-2024 Screening for malignant neoplasm of breast Mammogram Screening [facility] Start: 09-08-2024 Diabetes mellitus screening Diabetes Screening [facility] Start: 09-08-2024 Hepatitis B surface antibody level LDL Cholesterol [facility] Start: 08-31-2024 Annual PCP Team Chronic Disease Visit Annual PCP Team Chronic Disease Visit [facility] Start: 08-31-2024 Hepatitis B Vaccine (1 of 3 - 19+ 3-dose series) Hepatitis B Vaccine (1 of 3 - 19+ 3-dose series) [facility] Comment on above: Postponed from 1989 (Declined at t his time) Start: 08-31-2024 Hepatitis B Vaccine (1 of 3 - 3-dose series) Hepatitis B Vaccine (1 of 3 - 3-dose series) [facility] Comment on above: Postponed from 1970 (Declined at t his time) Start: 08-31-2024 Pneumococcal vaccination [facility] Comment on above: Postponed from 1976 (Declined at t his time) Start: 08-31-2024 Shingrix Vaccine (1 of 2) Shingrix Vaccine (1 of 2) [facility] Comment on above: Postponed from 2020 (Declined at t his time) Start: 08-31-2024 Urine microalbumin profile DTaP,Tdap,Td Vaccine (1 - Tdap) [facility] Comment on above: Postponed from 1989 (Declined at t his time) Start: 07-16-2024 Covid-19 Vaccine ( season) Covid-19 Vaccine () [facility] Start: 07-16-2024 Covid-19 Vaccine () Covid-19 Vaccine () [facility] Start: 07-16-2024 Influenza vaccination [facility] Start: 05-14-2024 Influenza vaccination Influenza Vaccine (#1) [facility] Comment on above: Postponed from 07/16/2023 (Declined at t his time) Start: 03-01-2024 ANNUAL PCP TEAM CHRONIC DISEASE VISIT ANNUAL PCP TEAM CHRONIC DISEASE VISIT [facility] Start: 02-17-2024 ANNUAL PCP TEAM CHRONIC DISEASE VISIT ANNUAL PCP TEAM CHRONIC DISEASE VISIT [facility] Start: 01-27-2024 ANNUAL PCP TEAM CHRONIC DISEASE VISIT ANNUAL PCP TEAM CHRONIC DISEASE VISIT [facility] Start: 01-27-2024 COVID-19 VACCINE (#1) COVID-19 VACCINE (#1) [facility] Comment on above: Postponed from [birth year]/22/1971 (Declined at t his time) Start: 11-15-2023 Behavioral Health Screening Behavioral Health Screening [facility] Start: 07-30-2023 Mammography [facility] Start: 07-27-2023 ANNUAL PCP TEAM CHRONIC DISEASE VISIT ANNUAL PCP TEAM CHRONIC DISEASE VISIT [facility] Start: 07-27-2023 HEPATITIS C SCREENING HEPATITIS C SCREENING [facility] Comment on above: Postponed from 1988 (Declined at t his time) Start: 07-24-2023 COLORECTAL CANCER SCREENING COLORECTAL CANCER SCREENING [facility] Start: 07-24-2023 FECAL OCCULT BLOOD FECAL OCCULT BLOOD [facility] Start: 07-24-2023 Hepatitis B surface antibody level LDL CHOLESTEROL [facility] Start: 07-24-2023 Screening for malignant neoplasm of colon [facility] Start: 07-20-2023 Adult depression screening assessment DEPRESSION SCREENING [facility] Start: 07-16-2023 Covid-19 Vaccine () Covid-19 Vaccine () [facility] Start: 07-16-2023 Influenza vaccination [facility] Start: 05-14-2023 Influenza vaccination INFLUENZA (#1) [facility] Comment on above: Postponed from 07/16/2022 (Declined at t his time) Start: 01-25-2023 End: 03-27-2023 Hemoglobin A1c in Blood HGB A1C Lab Routine Hyperglycemia Expected: 01/25/2023, Expires: 03/27/2023 [facility] Work Phone: Comment on above: Expected: 01/25/2023, Expires: 3 Start: 07-27-2022 End: 09-26-2022 Hemoglobin A1c in Blood [facility] Work Phone: Comment on above: Expected: 07/27/2022, Expires: 2 Start: 07-16-2022 Influenza vaccination [facility] Start: 05-29-2022 Introduction of urinary catheter [facility] Work Phone: Start: 05-29-2022 Patient discharge [facility] Work Phone: Start: 05-28-2022 Ambulation therapy management [facility] Work Phone: Start: 05-28-2022 Continuous pulse oximetry [facility] Work Phone: Start: 05-28-2022 Elevation of head of bed [facility] Work Phone: Start: 05-28-2022 Incentive spirometry [facility] Work Phone: Start: 05-28-2022 Measuring intake and output [facility] Work Phone: Start: 05-28-2022 Notification of physician [facility] Work Phone: Start: 05-28-2022 Oxygen therapy [facility] Work Phone: Start: 05-28-2022 Patient education [facility] Work Phone: Start: 05-28-2022 Procedures relating to eating and drinking [facility] Work Phone: Start: 05-28-2022 Taking patient vital signs [facility] Work Phone: Start: 05-28-2022 Wound care [facility] Work Phone: Start: 05-28-2022 [facility] Work Phone: Start: 05-28-2022 Introduction of urinary catheter [facility] Work Phone: Start: 05-28-2022 Following clinical pathway protocol [facility] Work Phone: Start: 05-28-2022 Admission procedure [facility] Work Phone: Start: 05-21-2022 Electrocardiographic procedure [facility] Work Phone: Start: 03-19-2022 End: 05-19-2022 CBC panel - Blood by Automated count CBC Lab Routine Menorrhagia with irregular cycle Expected: 03/19/2022, Expires: 05/19/2022 [facility] Work Phone: Comment on above: Expected: 03/19/2022, Expires: 2 Start: 03-19-2022 End: 05-19-2022 IRON + TIBC IRON + TIBC Lab Routine Menorrhagia with irregular cycle Expected: 03/19/2022, Expires: 05/19/2022 [facility] Work Phone: Comment on above: Expected: 03/19/2022, Expires: 2 Start: 03-19-2022 End: 05-19-2022 Thyrotropin [Units/volume] in Serum or Plasma TSH BLD Lab Routine Menorrhagia with irregular cycle Expected: 03/19/2022, Expires: 05/19/2022 [facility] Work Phone: Comment on above: Expected: 03/19/2022, Expires: 2 Start: 11-15-2021 DEPRESSION ASSESSMENT DEPRESSION ASSESSMENT [facility] Start: 07-16-2021 Influenza vaccination INFLUENZA (#1) [facility] Start: 2020 Screening for malignant neoplasm of lung Lung Cancer Screening [facility] Start: 2020 SHINGRIX VACCINE (1 of 2) SHINGRIX VACCINE (1 of 2) [facility] Start: 2020 Zoster vaccine hzv live for subcutaneous use ZOSTER (SHINGLES) VACCINE (1 of 2) [facility] Start: 2020 Zoster Vaccines (1 of 2) Zoster Vaccines (1 of 2) [facility] Start: 2015 COLOGUARD (FIT-DNA) COLOGUARD (FIT-DNA) [facility] Start: 2015 Colonoscopy COLONOSCOPY [facility] Start: 2015 COLORECTAL CANCER SCREENING COLORECTAL CANCER SCREENING [facility] Start: [address] COLONOGRAPHY [facility] Start: 2015 DIABETES SCREEN DIABETES SCREEN [facility] Start: 2015 FECAL OCCULT BLOOD FECAL OCCULT BLOOD [facility] Start: 2015 LIPID SCREEN LIPID SCREEN [facility] Start: 2015 Screening for malignant neoplasm of colon [facility] Start: 2015 SIGMOIDOSCOPY SIGMOIDOSCOPY [facility] Start: 2010 Lipid panel LIPID SCREENING [facility] Start: 2010 Mammography MAMMOGRAM [facility] Start: 2000 HPV TESTING HPV TESTING [facility] Start: 2000 Screening for malignant neoplasm of cervix [facility] Start: 1991 PAP TESTING PAP TESTING [facility] Start: 1991 Screening for malignant neoplasm of cervix [facility] Start: 1989 DTaP/Tdap/Td Vaccines (1 - Tdap) DTaP/Tdap/Td Vaccines (1 - Tdap) [facility] Start: 1989 Hepatitis B vaccination HEP B VACCINE (1 of 3 - 19+ 3-dose series) [facility] Start: 1989 Hepatitis B Vaccine (1 of 3 - 19+ 3-dose series) Hepatitis B Vaccine (1 of 3 - 19+ 3-dose series) [facility] Start: 1989 Hepatitis B Vaccines (1 of 3 - 19+ 3-dose series) Hepatitis B Vaccines (1 of 3 - 19+ 3-dose series) [facility] Start: 1989 Pneumococcal vaccination PNEUMOCOCCAL VACCINE SERIES (1 of 2 - PCV) [facility] Start: 1989 Pneumococcal Vaccine: 50+ (1 of 2 - PCV) Pneumococcal Vaccine: 50+ (1 of 2 - PCV) [facility] Start: 1989 Pneumococcal Vaccine: 50+ Years (1 of 2 - PCV) Pneumococcal Vaccine: 50+ Years (1 of 2 - PCV) [facility] Start: 1989 Third diphtheria, tetanus and acellular pertussis (DTaP) vaccination TDAP (ADULT) [facility] Start: 1989 Urine microalbumin profile [facility] Start: 1988 Anxiety Screening Anxiety Screening [facility] Start: 1988 Depression Screening Depression Screening [facility] Start: 1988 HEPATITIS C SCREENING HEPATITIS C SCREENING [facility] Start: 1988 Hepatitis C screening Hepatitis C Screening [facility] Start: 1988 HIV SCREENING HIV SCREENING [facility] Start: 1985 HIV screening HIV SCREENING DISCUSSION [facility] Start: 1982 Adult depression screening assessment DEPRESSION SCREENING [facility] Start: 1982 COVID-19 VACCINE (1) COVID-19 VACCINE (1) [facility] Start: 1976 PNEUMOCOCCAL (1 - PCV) PNEUMOCOCCAL (1 - PCV) [facility] Start: 1976 Pneumococcal vaccination [facility] Start: 1975 COVID-19 VACCINE (#1) COVID-19 VACCINE (#1) [facility] Start: 1975 COVID-19 VACCINE (1) COVID-19 VACCINE (1) [facility] Start: 1971 MMR Vaccines (1 of 1 - Standard series) MMR Vaccines (1 of 1 - Standard series) [facility] Start: 01-22-1971 COVID-19 VACCINE (#1) COVID-19 VACCINE (#1) [facility] Start: 1970 HEPATITIS B (1 of 3 - 3-dose series) HEPATITIS B (1 of 3 - 3-dose series) [facility] Start: 1970 Hepatitis B Vaccine (1 of 3 - 3-dose series) Hepatitis B Vaccine (1 of 3 - 3-dose series) [facility] Start: 1970 Hepatitis C screening HEPATITIS C VIRUS SCREENING [facility] Start: 1970 HIV screening HIV Screening [facility] Start: 1970 Lipid panel Lipid Panel [facility] Start: 1970 Screening for malignant neoplasm of colon [facility] Start: 1970 Tetanus vaccination TETANUS [facility] Bacteria identified in Urine by Culture BACTERIAL CULTURE, URINE Microbiology Routine Burning with urination 12/24/2024 1:56 PM EST [facility] Work Phone: Basic metabolic 2008 panel with ionized calcium - Serum or Plasma [facility] CBC W Auto Different ial panel - Blood [facility] End: 10-25-2025 DBT Breast - bilateral screening [facility] Work Phone: Comment on above: 1 Occurrences starting 09/25/2024 until 10/25/2025 DBT Breast - bilater al screening BRITTANY SCREENING W ALFONSO Radiology Routine Encounter for screening mammogram for breast cancer 09/29/2024 1:34 PM EST [facility] Work Phone: End: 01-27-2024 EMG(NEURO/NI) EMG(NEURO/NI) EMG Routine Numbness 1 Occurrences starting 01/26/2023 until 01/27/2024 [facility] Work Phone: Comment on above: 1 Occurrences starting 01/26/2023 until 01/27/2024 Exploratory laparoto my celiotomy w/wo biopsy spx LAPAROTOMY, EXPLORATORY Intra-abdominal and pelvic swelling, mass and lump, unspecified site [facility] Hepatic function panel [facility] Laparoscopy w/rmvl a dnexal structures LAPAROSCOPIC, SALPINGO-OOPHORECTOMY Intra-abdominal and pelvic swelling, mass and lump, unspecified site [facility] Lipid 1996 panel - S noemi or Plasma [facility] Lmtd lmphadec stagin g spx pel&para-aortic LYMPHADENECTOMY, PARA-AORTIC OR PELVIC, LIMITED, FOR STAGING Intra-abdominal and pelvic swelling, mass and lump, unspecified site [facility] Magnesium measurement [facility] Non-Gynecologic Cytology [facility] [employer] Work Phone: Comment on above: Release Upon Ordering for 1 Occurrences starting 01/26/2025, 1 completed Patient Education What is Hematu roberta? ED Pyelonephritis, Female (Adult) [facility] Work Phone: Patient referral [facility] Work Phone: Serum inorganic phos phate measurement [facility] Tissue exam [facility] Comment on above: Release Upon Ordering for 1 Occurrences starting 01/26/2025 End: 08-26-2023 Us soft tissue head & neck real time imge docm US HEAD/NECK SOFT TISSUE OTHER Radiology Routine Neck mass 1 Occurrences starting 07/27/2022 until 08/26/2023 [facility] Work Phone: Comment on above: 1 Occurrences starting 07/27/2022 until 08/26/2023 End: 05-18-2025 XR Chest PA and Lateral XR CHEST 2V FRONTAL/LAT Radiology STAT Acute cough 1 Occurrences starting 04/18/2024 until 05/18/2025 [facility] Work Phone: Comment on above: 1 Occurrences starting 04/18/2024 until 05/18/2025 End: 02-25-2024 XR HAND GENERAL 3V PA/LAT/OBL RIGHT XR HAND GENERAL 3V PA/LAT/OBL RIGHT Radiology Routine Trigger little finger of right hand 1 Occurrences starting 01/26/2023 until 02/25/2024 [facility] Work Phone: Comment on above: 1 Occurrences starting 01/26/2023 until 02/25/2024 XR HAND GENERAL 3V P A/LAT/OBL RIGHT XR HAND GENERAL 3V PA/LAT/OBL RIGHT Radiology Routine Trigger little finger of right hand 01/26/2023 3:43 PM EDT [facility] Work Phone: [facility] Payers Date Payer Category Payer Self-pay [id number] 2024 Jose villa [facility] Care - [facility] BLUE CROSS [id number] 2024 Managed Care (unspecified) [facility] [id number] 2022 Blue Advance Blue [facility] [id number] 2022 Unknown [employer] PPO [id number] 2022-Present [phone] [address] [place] [address] PPO [id number] 2022 Unknown [employer] BLUE [employer] PPO [id number] 2022-Present [phone] [address] [place] [address] PPO [id number] 2022 Unknown [id number] 1970 Unknown [id number]. 594 Medicaid [id number] Unknown [id number]. 462 Unknown [id number]. 462 Unknown [id number] 2.840.1.631434.3.579.2. 462 Unknown [id number] 2.16840.1.378941.3.579.2. 462 Unknown [id number] 2.16.840.1.296951.3.579.2. 462 Unknown [id number] 2.16.840.1.013668.3.579.2. 462 Unknown [id number] 2.16.840.1.424731.3.579.2. 462 Unknown [id number] 2.16840.1.285264.3.579.2. 462 Unknown [id number] 2.16.840.1.970873.3.579.2. 462 Unknown [id number] 2.16.840.1.530637.3.579.2. 462 Unknown [id number] 2.16.840.1.779646.3.579.2. 462 Unknown [id number] 2.16.840.1.169133.3.579.2. 462 Unknown [id number] 2.16.840.1.166779.3.579.2. 462 Unknown [id number] 2.16.840.1.471370.3.579.2. 462 Unknown [id number]. 462 Social History Date Type Detail Facility Start: 05-21-2022 End: 12-08-2022 Tobacco smoking status TXIS Tobacco smoking consumption unknown [facility] Work Phone: Start: 1970 Sex Assigned At Not on file C [facility] Start: 09-23-2021 End: 04-26-2025 Tobacco smoking status TXIS Smokes tobacco daily [facility] Start: 09-23-2021 End: 03-21-2025 Tobacco use and exposure Smokeless tobacco non-user [facility] Start: 09-25-2021 End: 12-24-2024 Alcohol intake Ex-drinker (finding) [facility] Start: 1970 Sex Assigned At Female C [facility] Start: 03-09-2022 End: 10-13-2022 Exposure to SARS-CoV-2 (event) Not sure [facility] Start: 06-09-2019 None [place] [facility] Start: 03-28-2021 Cigarettes [place] [facility] Start: 07-20-2022 End: 01-25-2023 History SDOH Alcohol Frequency 2 [facility] Start: 07-20-2022 End: 01-25-2023 History SDOH Alcohol Std Drinks 1 [facility] Start: 07-20-2022 History SDOH Social Connections Phone 5 [facility] Start: 07-20-2022 End: 01-25-2023 History SDOH Social Connections Living 3 [facility] Start: 07-20-2022 End: 01-25-2023 History SDOH Financial 4 [facility] Start: 01-25-2023 History SDOH Alcohol Std Drinks 0 [facility] Start: 01-24-2023 End: 03-21-2025 History of Social function [facility] Start: 01-24-2023 End: 03-21-2025 Social connection and isolation panel [facility] Do you belong to any clubs or organizations such as mormonism groups, unions, fraternal or athletic groups, or school groups? No [facility] Attends Club or Organization Meetings Not on file [facility] Are you now , , , , never or living with a partner? [facility] How often to you hav e a drink containing alcohol? Never [facility] How hard is it for y ou to pay for the very basics like food, housing, medical care, and heating Not very hard [facility] Do you feel stress - tense, restless, nervous, or anxious, or unable to sleep at night because your mind is troubled all the time - these days [OSQ] Rather much [facility] (I/We) worried edmar er (my/our) food would run out before (I/we) got money to buy more. Never true [facility] Start: 09-30-2021 Gender identity Identifies as female gender (finding) [facility] Start: 09-30-2021 Sexual orientation Heterosexual (fin filiberto) [facility] Start: 11-15-1985 History of tobacco use Cigarette Smo ker [facility] Start: 01-17-2025 End: 03-21-2025 Alcoholic beverage intake Lifetime non-drinker (finding) [facility] Start: 01-16-2025 End: 02-27-2025 Sex Female (finding) [facility] Start: 04-15-1986 Tobacco smoking stat us NHIS Occasional tobacco smoker [facility] Start: 03-21-2025 Tobacco Comment I am slowly qu itting. Down from a pack a day to less than half a pack a day. [facility] NEGATED: Highlighted row Not [facility] Medical Equipment Procedure Code Equipment Code Equipment Origin al Text Equipment Identifier Dates Insertion, vascular access port ([id number]) Vascular port/catheter [id number] FDA Start: 04-02-2025 Hysterectomy, total, abdominal Plant polysaccharide haemostatic agent, bioabsorbable [id number] FDA Start: 05-28-2022 Goals Date Patient Goal Desired Activity /State Functional Status Date Assessment Result Facility 05-29-2022 Functional status Ambulates [facility] Work Phone: Mental Status Date Assessment Result Facility 04-02-2025 Cognitive function Voice/Name [facility] Work Phone: 05-29-2022 Cognitive function Level Of Cons ciousness Awake;Alert;Appropriate;Follow s Commands [facility] Work Phone: 05-28-2022 Cognitive function Voice/Name [facility] Work Phone: 05-28-2022 Cognitive function Memory Description Int act [facility] Work Phone: Clinical Notes 03-31-2021 to 04-26-2025 Note Date & Type Note Facility 04-26-2025 Progress note [facility] 04-26-2025 Progress note Note Date/Time April 26, 2025 9:37am [facility] [address] [place] [address] OFFICE VISIT Date of Service: 04/26/25912 MR#: [id number] Acct: [id number] Name: UZMA MCDONALD Rep #: [id number] : 1970 From: Imani fair MD Age/Sex: 54/F Location: [facility] Status: Signed HPI Subjective Date of Service 04/26/25 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 The patient was seen in [facility] emergency room January 08, 2025 with urinary symptoms that proved to be due to a UTI which improved with a course of antibiotics. An incidental left pelvic mass was seen on CT scan. January 08, 2025 CT abdomen and pelvis: FINDINGS: Lung bases: Clear Liver: Diffuse fatty infiltration. Enlarged Gallbladder: Surgically absent. Spleen: Normal size. Pancreas: Unremarkable. Adrenals: Unremarkable. Kidneys: Left peripelvic fat stranding with 14 mm nonobstructive calculus. Nonobstructive calculi are also noted in the left kidney.. Bladder: Unremarkable. Reproductive Organs: Prior hysterectomy. Adnexal regions are unremarkable. Bowel: No bowel obstruction. Appendix: Normal. Lymph nodes: There is a heterogeneously enhancing mass in the left pelvis measuring 7.3 x 8.1 cm. No other corresponding lymphadenopathy is noted. Vasculature: Mild diffuse atherosclerotic calcifications are noted. Peritoneum / Retroperitoneum: No ascites. No free air. Bones: Unremarkable. IMPRESSION: 1. Heterogeneous left pelvic mass concerning for neoplasm 2. Left pyelonephritis with nonobstructive stone. Nonobstructive calculi also noted in the right kidney. 3. Hepatic steatosis and hepatomegaly January 12, 2025 transvaginal ultrasound: IMPRESSION: Status post hysterectomy and right oophorectomy. Heterogeneous enlargement of the left ovary with blood flow. This corresponds with the CT findings. January 26, 2025 patient underwent exploratory laparotomy, left oophorectomy, removal of pelvic mass, omentectomy. Pathology: A. Pelvic mass excision: High-grade sarcoma with myogenic differentiation favorleiomyosarcoma. B. Pelvic mass excision: High-grade sarcoma with myogenic differentiation, favor leiomyosarcoma. C. Omentum, omentectomy benign adipose tissue negative for malignancy. D. Ovary left oophorectomy: Ovary with no significant pathologic changes. Comment: Sections from the pelvic mass show a highly cellular spindled and focally epithelioid malignant neoplasm with marked cytologic atypia, brisk mitotic activity and tumor cell necrosis. IHC at [facility] positive for SMA, negative for desmin, STAT6, pancytokeratin, S100 and CD34. Additional IHC done at [facility] showed negative Desmin, negative Caldesmon, ER diffuse strong positive, ALK negative, p53 aberrant (strong diffuse), PTEN retained staining, RB1 loss ofstaining, HMB45 negative. Again the overall morphologic and IHC features consistent with a high-grade sarcoma with a diagnosis of leiomyosarcoma is favored. The site of origin of this tumor is difficult to determine but the presence of ER staining raises the possibility of m?teena origin. January 26, 2025 peritoneal washings no malignant cells identified. March 26, 2025 chest abdomen and pelvis CT: IMPRESSION: 1. Few scattered less than 6 mm indeterminate pulmonary nodules. Otherwise, no evidence of metastatic disease in the thorax. 2. Status post hysterectomy and resection of previously noted mass. Small indeterminate soft tissue nodules noted within the anterior pelvic mesentery and hysterectomy bed. These may represent sequela of postoperative changes. However, peritoneal carcinomatosis can not be excluded. Attention on follow-up is recommended. 3. 18 mm left renal pelvis obstructing calculus with mild hydronephrosis. Multiple other nonobstructing calculi. 4. 3 mm left UVJ/posterior urinary bladder wall calculus. Treatment summary and response: * January 26, 2025 patient underwent exploratory laparotomy, left oophorectomy, removal of pelvic mass, omentectomy. * Docetaxel gemcitabine April 19, 2025 [facility] Medical History Encounter for education Cancer Back pain Shortness of breath on exertion Leg cramps History of stress test Primary leiomyosarcoma of pelvis Anemia due to chronic blood loss Menorrhagia Wears dentures High cholesterol Loss of consciousness Gastric reflux Smoker Cardiology follow-up encounter History of echocardiogram Cardiac murmur History of non-ST elevation myocardial infarction (NSTEMI) (06/2014) Essential (primary) hypertension Atherosclerosis of coronary artery without angina pectoris Kidney stones Surgical History H/O pelvic mass (~01/26/25) History of cardiac catheterization Hx of oral surgery Hx laparoscopic cholecystectomy Hx of left cataract extraction History of hysterectomy Cataract extraction status of right eye Hx of tubal ligation History of coronary artery stent placement (03/31/21) Family History Father Kidney disease Aunt Cancer paternal Other Heart disease Social History (Updated 04/26/25 @ 09:19 by Taniya Jasmine) household members: spouse housing: house Smoking Status: Current every day smoker tobacco type: cigarettes Tobacco: How many years used: 39 quit status: considering quitting alcohol intake: never substance use type: does not use caffeine: Yes Type: coffee Number of servings: 1 and tea Number of servings: 2 ROS ROS Narrative Tolerates reduced dose dexamethasone (4 mg twice daily starting day prior to docetaxel for 3 days) premed better than the standard dose Constitutional Constitutional: Reports systems reviewed and no addt'l complaints, except as documented; Denies fever(s), night sweats or weight loss Eyes Eyes: Reports systems reviewed and no addt'l complaints, except as documented ENT HEENT: Reports systems reviewed and no addt'l complaints, except as documented; Denies mouth lesions Cardiovascular Cardiovascular: Reports systems reviewed and no addt'l complaints, except as documented; Denies chest pain with activity or edema Respiratory/Chest Respiratory/Chest: Reports systems reviewed and no addt'l complaints, except as documented; Denies cough or dyspnea Gastrointestinal Gastrointestinal: Reports systems reviewed and no addt'l complaints, except as documented and other Details: Minimal nausea not even enough to take an antinausea medications ; Denies change in bowel habits, hematochezia or melena Genitourinary Genitourinary: Reports systems reviewed and no addt'l complaints, except as documented and as per HPI; Denies dysuria or hematuria Musculoskeletal Musculoskeletal: Reports systems reviewed and no addt'l complaints, except as documented; Denies back pain Integumentary Integumentary: Reports systems reviewed and no addt'l complaints, except as documented; Denies new lesions Neurologic Neurologic: Reports systems reviewed and no addt'l complaints, except as documented; Denies focal weakness or paresthesias Psychiatric Psychiatric: Reports systems reviewed and no addt'l complaints, except as documented Endocrine Endocrinology: Reports systems reviewed and no addt'l complaints, except as documented Hematologic/Lymphatic Hematologic/Lymphatic: Reports systems reviewed and no addt'l complaints, exceptas documented; Denies lymphadenopathy Allergic/Immunologic Allergic/Immunologic: Reports systems reviewed and no addt'l complaints, except as documented Intake Vital Signs 04/19/25 09:06 04/26/25 09:14 04/26/25 09:19 Height 5 ft 7 in 5 ft 7 in 5 ft 7 in Weight: 101.264 kg 98.543 kg BMI 34.9 34.0 BP 131/74 H 116/74 Blood Pressure Location Lt brachial Lt brachial Position Sitting Sitting Respiration 16 16 Pulse 80 64 Pulse Source Monitor Monitor Temp 98.5 F 97.4 F L Temperature Source Temporal Artery Temporal Artery Pulse Oximetry (%) 94 95 Oxygen Delivery Method room air room air Intake Is patient in pain?: No Allergies No Known Allergies Allergy (Verified 04/26/25 09:18) Medications ?Medication ?Instructions ?Recorded ?Confirmed ?Type aspirin 81 mg chewable tablet 81 mg PO DAILY@0800 hx o f mi 06/09/19 04/26/25 History atorvastatin 80 mg tablet 80 mg PO QHS cholesterol #90 tabs 11/29/23 04/26/25 Rx famotidine 20 mg tablet (Pepcid) 20 mg PO BID 11/29/23 04/26/25 History sertraline 50 mg tablet (Zoloft) 50 mg PO QHS 11/29/23 04/26/25 History lidocaine-prilocaine 2.5 %-2.5 % 1 applic topical ONCE PRN port 04/04/25 04/26/25 Rx topical cream access 30 days #30 grams ondansetron 8 mg disintegrating 8 mg PO Q8H PRN nausea and 04/04/25 04/26/25 Rx tablet vomiting #30 tabs prochlorperazine maleate 10 mg 10 mg PO Q6H PRN nausea and 04/04/25 04/26/25 Rx tablet vomiting #30 tabs dexamethasone 4 mg tablet 8 mg (2 x 4 mg) PO .COMPLEX #72 04/05/25 04/26/25 Rx tabs Have you fallen in the past year?: No Central Venous Access Central Venous Access: Yes Port/PICC: Port [facility] April 26, 2025 reviewed in EMR Exam Physical Exam Narrative ECOG 0-1 Const alert, oriented x3 and no apparent distress General Appearance: cooperative and comfortable Nutritional Appearance: obese HEENT normocephalic Face and Sinus: normal facial exam Mouth: oral and palatal mucosa normal Eyes General Eye: normal appearance of both eyes Neck no lymphadenopathy and no JVD Lymph Lymphatic: no lymphadenopathy noted Chest Chest: vascular access Resp Auscultation: wheezes and diminished lung sounds bilateral and diffuse Cardio regular rate and regular rhythm Jugular Venous Distention: Negative for JVD GI soft to palpation, non-tender and non-distended; Negative for hepatosplenomegaly Back/Spine no thoracic nor lumbar tenderness Extremity no clubbing, cyanosis or edema Skin no rashes or lesions noted Neuro oriented x3, CN's II-XII intact bilaterally, moves all extremities and no focal motor deficits Coordination / Balance: [id number] test normal Speech: speech normal Gait (Neuro): normal gait Psych mental status grossly normal Coding Level of Care Code Off vis,est,level 4 Exam Problem Focused Diagnoses 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 Past medical history notable for status post hysterectomy, bilateral salpingectomy and right oophorectomy for fibroid uterus was excessive menstrual bleeding causing iron deficiency anemia in 2021. Transvaginal ultrasound suggested left ovarian enlargement. January 26, 2025 underwent exploratory laparotomy left oophorectomy and removal ofpelvic mass, omentectomy by Dr. Grady. 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 Left oophorectomy showed no significant pathologic changes, omentum showed no evidence of malignancy and peritoneal washings showed no malignant cells. Was seen at [facility] sarcoma clinic by Dr. Cunningham in March 2025 who recommended standard adjuvant chemotherapy with gemcitabine Taxotere for 6 cycles followed by maintenance pazopanib plus letrozole indefinite/till progression. Started adjuvant gemcitabine and Taxotere April 19, 2025. Of note her CA125 was not elevated. Chronic comorbid conditions: Obesity, dyslipidemia, coronary artery disease, hypertension and active smoker. Plan: Based on NCCN guideline and consultation with Drs. Grady and Octavio: 1-adjuvant systemic chemotherapy with gemcitabine and Taxotere for 6 cycles. Patient will be supported with antiemetics, steroids (will drop the dose to 4 Mgtwice daily for 3 days starting the day prior to Taxotere due to intolerance of steroid side effects) . Primary prophylaxis against febrile neutropenia with growth factor was denied byinsurance. 2. Following adjuvant systemic chemotherapy maintenance pazopanib letrozole indefinite/till progression. 3. Refered to urology for left renal pelvis calculus with mild hydronephrosis. Impression and plan discussed with patient . Imani Persaud MD [facility] Department Supervisor, [facility] Divisions of Medical Oncology & Hematology Department of Internal Medicine [place] [phone] This note was generated using a voice recognition system software. Although itwas reviewed by the author prior to finalization, it may still contain incorrectwords, spelling, and punctuation that were not noted when reviewing prior to saving. If a clinically significant typo or inaccurately typed phrase is noted, please notify the author. Clinical Quality Measures Falls Risk Screening/Assistive Devices Have you fallen in the past year?: No 04/26/25 0937 <Electronically signed by Imani jones MD> Date _ [facility]aud [facility] Signature: Date (if applicable) CC: ~ [employer] [facility] Work Phone: 1(776) 697-352506-05-2025 [facility] [address] [place] [address] OFFICE VISIT Date of Service: 04/19/25905 MR#: [id number] Acct: [id number] Name: UZMA MCDONALD CADEN Rep #: [id number] : 1970 From: Imani fair MD Age/Sex: 54/F Location: [facility] Status: Signed HPI Subjective Date of Service 04/19/25 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 The patient was seen in [facility] emergency room January 08, 2025 with urinary symptoms that proved to be due to a UTI which improved with a course of antibiotics. An incidental left pelvic mass was seen on CT scan. January 08, 2025 CT abdomen and pelvis: FINDINGS: Lung bases: Clear Liver: Diffuse fatty infiltration. Enlarged Gallbladder: Surgically absent. Spleen: Normal size. Pancreas: Unremarkable. Adrenals: Unremarkable. Kidneys: Left peripelvic fat stranding with 14 mm nonobstructive calculus. Nonobstructive calculi are also noted in the left kidney.. Bladder: Unremarkable. Reproductive Organs: Prior hysterectomy. Adnexal regions are unremarkable. Bowel: No bowel obstruction. Appendix: Normal. Lymph nodes: There is a heterogeneously enhancing mass in the left pelvis measuring 7.3 x 8.1 cm. No other corresponding lymphadenopathy is noted. Vasculature: Mild diffuse atherosclerotic calcifications are noted. Peritoneum / Retroperitoneum: No ascites. No free air. Bones: Unremarkable. IMPRESSION: 1. Heterogeneous left pelvic mass concerning for neoplasm 2. Left pyelonephritis with nonobstructive stone. Nonobstructive calculi also noted in the right kidney. 3. Hepatic steatosis and hepatomegaly January 12, 2025 transvaginal ultrasound: IMPRESSION: Status post hysterectomy and right oophorectomy. Heterogeneous enlargement of the left ovary with blood flow. This corresponds with the CT findings. January 26, 2025 patient underwent exploratory laparotomy, left oophorectomy, removal of pelvic mass,omentectomy. Pathology: A. Pelvic mass excision: High-grade sarcoma with myogenic differentiation favorleiomyosarcoma. B. Pelvic mass excision: High-grade sarcoma with myogenic differentiation, favor leiomyosarcoma. C. Omentum, omentectomy benign adipose tissue negative for malignancy. D. Ovary left oophorectomy: Ovary with no significant pathologic changes. Comment: Sections from the pelvic mass show a highly cellular spindled and focally epithelioid malignant neoplasm with marked cytologic atypia, brisk mitotic activity and tumor cell necrosis. IHC at [facility] positive for SMA, negative for desmin, STAT6, pancytokeratin, S100 and CD34. Additional IHC done at [facility] showed negative Desmin, negative Caldesmon, ER diffuse strong positive, ALK negative, p53 aberrant (strong diffuse), PTEN retained staining, RB1 loss ofstaining, HMB45 negative. Again the overall morphologic and IHC features consistent with a high-grade sarcoma with a diagnosis of leiomyosarcoma is favored. The site of origin of this tumor is difficult to determine but the presence of ER staining raises the possibility of m?llerian origin. January 26, 2025 peritoneal washings no malignant cells identified. March 26, 2025 chest abdomen and pelvis CT: IMPRESSION: 1. Few scattered less than 6 mm indeterminate pulmonary nodules. Otherwise, no evidence of metastatic disease in the thorax. 2. Status post hysterectomy and resection of previously noted mass. Small indeterminate soft tissuenodules noted within the anterior pelvic mesentery and hysterectomy bed. These may represent sequela of postoperative changes. However, peritoneal carcinomatosis can not be excluded. Attention on follow-up is recommended. 3. 18 mm left renal pelvis obstructing calculus with mild hydronephrosis. Multiple other nonobstructing calculi. 4. 3 mm left UVJ/posterior urinary bladder wall calculus. Treatment summary and response: * January 26, 2025 patient underwent exploratory laparotomy, left oophorectomy, removal of pelvic mass, omentectomy. * Docetaxel gemcitabine April 19, 2025 [facility] Medical History Encounter for education Cancer Back pain Shortness of breath on exertion Leg cramps History of stress test Primary leiomyosarcoma of pelvis Anemia due to chronic blood loss Menorrhagia Wears dentures High cholesterol Loss of consciousness Gastric reflux Smoker Cardiology follow-up encounter History of echocardiogram Cardiac murmur History of non-ST elevation myocardial infarction (NSTEMI) (06/2014) Essential (primary) hypertension Atherosclerosis of coronary artery without angina pectoris Kidney stones Surgical History H/O pelvic mass (~01/26/25) History of cardiac catheterization Hx of oral surgery Hx laparoscopic cholecystectomy Hx of left cataract extraction History of hysterectomy Cataract extraction status of right eye Hx of tubal ligation History of coronary artery stent placement (03/31/21) Family History Father Kidney disease Aunt Cancer paternal Other Heart disease Social History household members: spouse housing: house Smoking Status: Current every day smoker tobacco type: cigarettes Tobacco: How many years used: 39 alcohol intake: never substance use type: does not use caffeine: Yes Type: coffee Number of servings: 1 and tea Number of servings: 2 ROS ROS Narrative Sleepless and flushed from oral steroid premedication Constitutional Constitutional: Reports systems reviewed and no addt'l complaints, except as documented; Denies fever(s), night sweats or weight loss Eyes Eyes: Reports systems reviewed and no addt'l complaints, except as documented ENT HEENT: Reports systems reviewed and no addt'l complaints, except as documented; Denies mouth lesions Cardiovascular Cardiovascular: Reports systems reviewed and no addt'l complaints, except as documented; Denies chest pain with activity or edema Respiratory/Chest Respiratory/Chest: Reports systems reviewed and no addt'l complaints, except as documented; Denies cough or dyspnea Gastrointestinal Gastrointestinal: Reports systems reviewed and no addt'l complaints, except as documented; Denies change in bowel habits, hematochezia or melena Genitourinary Genitourinary: Reports systems reviewed and no addt'l complaints, except as documented and as per HPI; Denies dysuria or hematuria Musculoskeletal Musculoskeletal: Reports systems reviewed and no addt'l complaints, except as documented; Denies back pain Integumentary Integumentary: Reports systems reviewed and no addt'l complaints, except as documented; Denies new lesions Neurologic Neurologic: Reports systems reviewed and no addt'l complaints, except as documented; Denies focal weakness or paresthesias Psychiatric Psychiatric: Reports systems reviewed and no addt'l complaints, except as documented Endocrine Endocrinology: Reports systems reviewed and no addt'l complaints, except as documented Hematologic/Lymphatic Hematologic/Lymphatic: Reports systems reviewed and no addt'l complaints, exceptas documented; Denies lymphadenopathy Allergic/Immunologic Allergic/Immunologic: Reports systems reviewed and no addt'l complaints, except as documented Intake Vital Signs 04/04/25 14:17 04/19/25 09:06 Height 5 ft 7 in 5 ft 7 in Weight: 101.264 kg BMI 34.9 BP 131/74 H Blood Pressure Location Lt brachial Position Sitting Respiration 16 Pulse 80 Pulse Source Monitor Temp 98.5 F Temperature Source Temporal Artery Pulse Oximetry (%) 94 Oxygen Delivery Method room air Intake Is patient in pain?: No Allergies No Known Allergies Allergy (Verified 04/19/25 09:10) Medications ?Medication ?Instructions ?Recorded ?Confirmed ?Type aspirin 81 mg chewable tablet 81 mg PO DAILY@0800 hx o f mi 06/09/19 04/19/25 History atorvastatin 80 mg tablet 80 mg PO QHS cholesterol #90 tabs 11/29/23 04/19/25 Rx famotidine 20 mg tablet (Pepcid) 20 mg PO BID 11/29/23 04/19/25 History sertraline 50 mg tablet (Zoloft) 50 mg PO QHS 11/29/23 04/19/25 History lidocaine-prilocaine 2.5 %-2.5 % 1 applic topical ONCE PRN port 04/04/25 04/19/25 Rx topical cream access 30 days #30 grams ondansetron 8 mg disintegrating 8 mg PO Q8H PRN nausea and 04/04/25 04/19/25 Rx tablet vomiting #30 tabs prochlorperazine maleate 10 mg 10 mg PO Q6H PRN nausea and 04/04/25 04/19/25 Rx tablet vomiting #30 tabs dexamethasone 4 mg tablet 8 mg (2 x 4 mg) PO .COMPLEX #72 04/05/25 04/19/25 Rx tabs Central Venous Access Central Venous Access: Yes Port/PICC: Port CBC, CMP April 19, 2025 reviewed in EMR Exam Physical Exam Const alert, oriented x3 and no apparent distress General Appearance: cooperative and comfortable Nutritional Appearance: obese HEENT normocephalic Face and Sinus: normal facial exam Mouth: oral and palatal mucosa normal Eyes General Eye: normal appearance of both eyes Neck no lymphadenopathy and no JVD Lymph Lymphatic: no lymphadenopathy noted Chest Chest: vascular access Resp Auscultation: wheezes and diminished lung sounds bilateral and diffuse Cardio regular rate and regular rhythm Jugular Venous Distention: Negative for JVD GI soft to palpation, non-tender and non-distended; Negative for hepatosplenomegaly Back/Spine no thoracic nor lumbar tenderness Extremity no clubbing, cyanosis or edema Skin no rashes or lesions noted Neuro oriented x3, CN's II-XII intact bilaterally, moves all extremities and no focal motor deficits Coordination / Balance: gukxyj-ar-ydti test normal Speech: speech normal Gait (Neuro): normal gait Psych mental status grossly normal Coding Level of Care Code Off vis,est,level 4 Exam Problem Focused Diagnoses 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 Past medical history notable for status post hysterectomy, bilateral salpingectomy and right oophorectomy for fibroid uterus was excessive menstrual bleeding causing iron deficiency anemia in 2021. Transvaginal ultrasound suggested left ovarian enlargement. January 26, 2025 underwent exploratory laparotomy left oophorectomy and removal ofpelvic mass, omentectomy by Dr. Grady. 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 Left oophorectomy showed no significant pathologic changes, omentumshowed no evidence of malignancy and peritoneal washings showed no malignant cells. Was seen at [facility] sarcoma clinic by Dr. Cunningham in March 2025 who recommended standard adjuvant chemotherapy with gemcitabine Taxotere for 6 cycles followed by maintenance pazopanib plus letrozole indefinite/till progression. Of note her CA125 was not elevated. Chronic comorbid conditions: Obesity, dyslipidemia, coronary artery disease, hypertension and active smoker. Plan: Based on NCCN guideline and consultation with Drs. Grady and Octavio: 1-adjuvant systemic chemotherapy with gemcitabine and Taxotere for 6 cycles. Patient will be supported with antiemetics, steroids (will drop the dose to 4 Mgtwice daily for 3 days starting the day prior to Taxotere due to intolerance of steroid side effects) . Primary prophylaxis against febrile neutropenia with growth factor was denied byinsurance. 2. Following adjuvant systemic chemotherapy maintenance pazopanib letrozole indefinite/till progression. 3. Refered to urology for left renal pelvis calculus with mild hydronephrosis. Given history of recurrent kidney stones but has never seen a urologist before. Impression and plan discussed with patient . Imani Persaud MD Sack Department Supervisor, [facility] Divisions of Medical Oncology & Hematology Department of Internal Medicine [facility] [place] [id number] This note was generated using a voice recognition system software. Although itwas reviewed by the author prior to finalization, it may still contain incorrectwords, spelling, and punctuation that were not noted when reviewing prior to saving. If a clinically significant typo or inaccurately typed phrase is noted, please notify the author. 04/19/25 Lalito jones MD> Date _ Imani العراقي Signature: Date (if applicable) CC: ~ [facility]05-21-2025 [facility] [address] [place] [address] OFFICE VISIT Date of Service: 04/04/25 1408 MR#: [id number] Acct: [id number] Name: UZMA MCDONALD CADEN Rep #: [id number] : 1970 From: Delmis Roberts ch PRODUCT SUPPORT ENGINEER PRODUCT SUPPORT ENGINEER-C Age/Sex: 54/F [place] [facility] [place] Status: Signed HPI Subjective Date of Service 04/04/25 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 The patient was seen in [facility] emergency room January 08, 2025 with urinary symptoms that proved to be due to a UTI which improved with a course of antibiotics. An incidental left pelvic mass was seen on CT scan. January 08, 2025 CT abdomen and pelvis: FINDINGS: Lung bases: Clear Liver: Diffuse fatty infiltration. Enlarged Gallbladder: Surgically absent. Spleen: Normal size. Pancreas: Unremarkable. Adrenals: Unremarkable. Kidneys: Left peripelvic fat stranding with 14 mm nonobstructive calculus. Nonobstructive calculi are also noted in the left kidney.. Bladder: Unremarkable. Reproductive Organs: Prior hysterectomy. Adnexal regions are unremarkable. Bowel: No bowel obstruction. Appendix: Normal. Lymph nodes: There is a heterogeneously enhancing mass in the left pelvis measuring 7.3 x 8.1 cm. No other corresponding lymphadenopathy is noted. Vasculature: Mild diffuse atherosclerotic calcifications are noted. Peritoneum / Retroperitoneum: No ascites. No free air. Bones: Unremarkable. IMPRESSION: 1. Heterogeneous left pelvic mass concerning for neoplasm 2. Left pyelonephritis with nonobstructive stone. Nonobstructive calculi also noted in the right kidney. 3. Hepatic steatosis and hepatomegaly January 12, 2025 transvaginal ultrasound: IMPRESSION: Status post hysterectomy and right oophorectomy. Heterogeneous enlargement of the left ovary with blood flow. This corresponds with the CT findings. January 26, 2025 patient underwent exploratory laparotomy, left oophorectomy, removal of pelvic mass,omentectomy. Pathology: A. Pelvic mass excision: High-grade sarcoma with myogenic differentiation favorleiomyosarcoma. B. Pelvic mass excision: High-grade sarcoma with myogenic differentiation, favor leiomyosarcoma. C. Omentum, omentectomy benign adipose tissue negative for malignancy. D. Ovary left oophorectomy: Ovary with no significant pathologic changes. Comment: Sections from the pelvic mass show a highly cellular spindled and focally epithelioid malignant neoplasm with marked cytologic atypia, brisk mitotic activity and tumor cell necrosis. IHC at [facility] positive for SMA, negative for desmin, STAT6, pancytokeratin, S100 and CD34. Additional IHC done at [facility] showed negative Desmin, negative Caldesmon, ER diffuse strong positive, ALK negative, p53 aberrant (strong diffuse), PTEN retained staining, RB1 loss ofstaining, HMB45 negative. Again the overall morphologic and IHC features consistent with a high-grade sarcoma with a diagnosis of leiomyosarcoma is favored. The site of origin of this tumor is difficult to determine but the presence of ER staining raises the possibility of m?llerian origin. January 26, 2025 peritoneal washings no malignant cells identified. March 26, 2025 chest abdomen and pelvis CT: IMPRESSION: 1. Few scattered less than 6 mm indeterminate pulmonary nodules. Otherwise, no evidence of metastatic disease in the thorax. 2. Status post hysterectomy and resection of previously noted mass. Small indeterminate soft tissuenodules noted within the anterior pelvic mesentery and hysterectomy bed. These may represent sequela of postoperative changes. However, peritoneal carcinomatosis can not be excluded. Attention on follow-up is recommended. 3. 18 mm left renal pelvis obstructing calculus with mild hydronephrosis. Multiple other nonobstructing calculi. 4. 3 mm left UVJ/posterior urinary bladder wall calculus. Interval History Patient is presenting to clinic today for an education visit to discuss docetaxel/gemcitabine. Describes an active lifestyle good support system at home by way of spouse and adult children. [facility] Medical History (Updated 04/04/25 @ 15:35 by Delmis Corral PRODUCT SUPPORT ENGINEER, PRODUCT SUPPORT ENGINEER-C) Encounter for education Cancer Back pain Shortness of breath on exertion Leg cramps History of stress test Primary leiomyosarcoma of pelvis Anemia due to chronic blood loss Menorrhagia Wears dentures High cholesterol Loss of consciousness Gastric reflux Smoker Cardiology follow-up encounter History of echocardiogram Cardiac murmur History of non-ST elevation myocardial infarction (NSTEMI) (06/2014) Essential (primary) hypertension Atherosclerosis of coronary artery without angina pectoris Kidney stones Surgical History History of cardiac catheterization Hx of oral surgery Hx laparoscopic cholecystectomy Hx of left cataract extraction History of hysterectomy Cataract extraction status of right eye Hx of tubal ligation History of coronary artery stent placement (03/31/21) Family History Father Kidney disease Aunt Cancer paternal Other Heart disease Social History household members: spouse housing: house Smoking Status: Current every day smoker tobacco type: cigarettes Tobacco: How many years used: 39 alcohol intake: never substance use type: does not use caffeine: Yes Type: coffee Number of servings: 1 and tea Number of servings: 2 Intake Vital Signs 03/28/25 15:36 03/29/25 14:36 04/02/25 10:06 04/04/25 14:13 04/04/25 14:17 Height 5 ft 7 in 5 ft 7 in 5 ft 7 in 5 ft 7 in 5 ft 7 in Weight: 225 lb 225 lb BMI 35.2 35.2 BP 116/77 125/80 H Blood Pressure Location Lt brachial Lt brachial Position Sitting Sitting Respiration 18 16 Pulse 89 83 Pulse Source Monitor Monitor Temp 98.8 F 98.2 F Temperature Source Temporal Artery Temporal Artery Pulse Oximetry (%) 96 98 Oxygen Delivery Method room air room air Intake Is patient in pain?: No Allergies No Known Allergies Allergy (Verified 04/04/25 14:12) Medications ?Medication ?Instructions ?Recorded ?Confirmed ?Type aspirin 81 mg chewable tablet 81 mg PO DAILY@0800 hx o f mi 06/09/19 04/02/25 History atorvastatin 80 mg tablet 80 mg PO QHS cholesterol #90 tabs 11/29/23 03/28/25 Rx famotidine 20 mg tablet (Pepcid) 20 mg PO BID 11/29/23 03/28/25 History sertraline 50 mg tablet (Zoloft) 50 mg PO QHS 11/29/23 03/28/25 History lidocaine-prilocaine 2.5 %-2.5 % 1 applic topical ONCE PRN port 04/04/25 04/04/25 Rx topical cream access 30 days #30 grams ondansetron 8 mg disintegrating 8 mg PO Q8H PRN nausea and 04/04/25 04/04/25 Rx tablet vomiting #30 tabs prochlorperazine maleate 10 mg 10 mg PO Q6H PRN nausea and 04/04/25 04/04/25 Rx tablet vomiting #30 tabs Have you fallen in the past year?: No Central Venous Access Central Venous Access: Yes Port/PICC: Port Exam Physical Exam Narrative ECOG 0 Const alert, oriented x3 and no apparent distress General Appearance: comfortable HEENT normocephalic Face and Sinus: normal facial exam Eyes General Eye: normal appearance of both eyes Chest Chest: vascular access Psych mental status grossly normal Attitude: calm and engaged Coding Level of Care Code Off vis,est,level 5 Exam Problem Focused Diagnoses Primary leiomyosarcoma of pelvis C49.5 Encounter for education Z71.9 Assessment and Plan Assessment and Plan (1) Primary leiomyosarcoma of pelvis: Status: Acute Comment: 2024 (2) Encounter for education: Status: Acute Medications: New lidocaine-prilocaine 2.5-2.5 % 1 applic topical ONCE 30 days PRN 30 grams 2RF port access C49.5 - 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 ondansetron 8 mg PO Q8H PRN 30 tabs 1RF nausea and vomiting C49.5 - 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 prochlorperazine maleate 10 mg PO Q6H PRN 30 tabs 2RF nausea and vomiting R11.2 - Nausea with vomiting, unspecified, T45.1X5A - Adverse effect of antineoplastic and immunosuppressive drugs, initial encounter Plan 54-year-old female with incidental finding of a large left pelvic mass on CT when she presented with symptoms due to urinary tract infection. Past medical history notable for status post hysterectomy, bilateral salpingectomy and right oophorectomy for fibroid uterus was excessive menstrual bleeding causing iron deficiency anemia in 2021. Transvaginal ultrasound suggested left ovarian enlargement. January 26, 2025 underwent exploratory laparotomy left oophorectomy and removal ofpelvic mass, omentectomy by Dr. Grady. 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 Left oophorectomy showed no significant pathologic changes, omentumshowed no evidence of malignancy and peritoneal washings showed no malignant cells. Was seen at [facility] sarcoma clinic by Dr. Cunningham in March 2025 who recommended standard adjuvant chemotherapy with gemcitabine Taxotere for 6 cycles followed by maintenance pazopanib plus letrozole indefinite/till progression. Of note her CA125 was not elevated. Chronic comorbid conditions: Obesity, dyslipidemia, coronary artery disease, hypertension and active smoker. Plan: Based on NCCN guideline and consultation with Drs. Grady and Octavio: 1-adjuvant systemic chemotherapy with gemcitabine and Taxotere for 6 cycles. Patient will be supported with antiemetics, steroids and primary prophylaxis against febrile neutropenia with growth factor was requested but denied by her insurance company. The patient has been thoroughly educated to risks/benefits associated with docetaxel/gemcitabine. Specifically, she has been educated to potential side effects, recommendations for symptom management, and circumstances in which she should contact provider immediately, such as the development of any signs/symptoms of infection inclusive of temperature > 100.4. Encouraged to go directly to ED should fever occur outside normal clinic hours. She has been provided written educational information and after hours contact information andprescriptions for prn antiemetics/EMLA cream. A significant amount of time was allotted for questions. All the patient's concerns were addressed to her satisfaction and she is agreeable to proceed. Tentatively, she will commence with cycle 1 on 04/19/2025. 2. Following adjuvant systemic chemotherapy maintenance pazopanib letrozole indefinite/till progression. 3. Refer to urology for left renal pelvis calculus with mild hydronephrosis. Given history of recurrent kidney stones but has never seen a urologist before. I spent 45 minutes today reviewing labs, records and history. Time includes coordination of care and patient education, as well as documenting clinical information. Clinical Quality Measures Falls Risk Screening/Assistive Devices Have you fallen in the past year?: No 04/04/25 1537 h PRODUCT SUPPORT ENGINEER PRODUCT SUPPORT ENGINEER-C> Date _ Delmis Shayna PRODUCT SUPPORT ENGINEER PRODUCT SUPPORT ENGINEER-C Cosigner Signature: Date (if applicable) CC: ~ [facility]05-21-2025 Progress note Author Delmis Shayna [facility] Note Date/Time April 04, 2025 3:37p m [facility] [address] [place] [address]. [place] [address] OFFICE VISIT Date of Service: 04/04/25 1408 MR#: [id number] Acct: [id number] Name: UZMA MCDONALD Rep #: [id number] : 1970 From: Delmis Roberts PRODUCT SUPPORT ENGINEER PRODUCT SUPPORT ENGINEER-C Age/Sex: 54/F [place] [facility] [place] Status: Signed HPI Subjective Date of Service 04/04/25 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 The patient was seen in [facility] emergency room January 08, 2025 with urinary symptoms that proved to be due to a UTI which improved with a course of antibiotics. An incidental left pelvic mass was seen on CT scan. January 08, 2025 CT abdomen and pelvis: FINDINGS: Lung bases: Clear Liver: Diffuse fatty infiltration. Enlarged Gallbladder: Surgically absent. Spleen: Normal size. Pancreas: Unremarkable. Adrenals: Unremarkable. Kidneys: Left peripelvic fat stranding with 14 mm nonobstructive calculus. Nonobstructive calculi are also noted in the left kidney.. Bladder: Unremarkable. Reproductive Organs: Prior hysterectomy. Adnexal regions are unremarkable. Bowel: No bowel obstruction. Appendix: Normal. Lymph nodes: There is a heterogeneously enhancing mass in the left pelvis measuring 7.3 x 8.1 cm. No other corresponding lymphadenopathy is noted. Vasculature: Mild diffuse atherosclerotic calcifications are noted. Peritoneum / Retroperitoneum: No ascites. No free air. Bones: Unremarkable. IMPRESSION: 1. Heterogeneous left pelvic mass concerning for neoplasm 2. Left pyelonephritis with nonobstructive stone. Nonobstructive calculi also noted in the right kidney. 3. Hepatic steatosis and hepatomegaly January 12, 2025 transvaginal ultrasound: IMPRESSION: Status post hysterectomy and right oophorectomy. Heterogeneous enlargement of the left ovary with blood flow. This corresponds with the CT findings. January 26, 2025 patient underwent exploratory laparotomy, left oophorectomy, removal of pelvic mass, omentectomy. Pathology: A. Pelvic mass excision: High-grade sarcoma with myogenic differentiation favorleiomyosarcoma. B. Pelvic mass excision: High-grade sarcoma with myogenic differentiation, favor leiomyosarcoma. C. Omentum, omentectomy benign adipose tissue negative for malignancy. D. Ovary left oophorectomy: Ovary with no significant pathologic changes. Comment: Sections from the pelvic mass show a highly cellular spindled and focally epithelioid malignant neoplasm with marked cytologic atypia, brisk mitotic activity and tumor cell necrosis. IHC at [facility] positive for SMA, negative for desmin, STAT6, pancytokeratin, S100 and CD34. Additional IHC done at [facility] showed negative Desmin, negative Caldesmon, ER diffuse strong positive, ALK negative, p53 aberrant (strong diffuse), PTEN retained staining, RB1 loss ofstaining, HMB45 negative. Again the overall morphologic and IHC features consistent with a high- grade sarcoma with a diagnosis of leiomyosarcoma is favored. The site of origin of this tumor is difficult to determine but the presence of ER staining raises the possibility of m?llerian origin. January 26, 2025 peritoneal washings no malignant cells identified. March 26, 2025 chest abdomen and pelvis CT: IMPRESSION: 1. Few scattered less than 6 mm indeterminate pulmonary nodules. Otherwise, no evidence of metastatic disease in the thorax. 2. Status post hysterectomy and resection of previously noted mass. Small indeterminate soft tissue nodules noted within the anterior pelvic mesentery and hysterectomy bed. These may represent sequela of postoperative changes. However, peritoneal carcinomatosis can not be excluded. Attention on follow-up is recommended. 3. 18 mm left renal pelvis obstructing calculus with mild hydronephrosis. Multiple other nonobstructing calculi. 4. 3 mm left UVJ/posterior urinary bladder wall calculus. Interval History Patient is presenting to clinic today for an education visit to discuss docetaxel/gemcitabine. Describes an active lifestyle good support system at home by way of spouse and adult children. [facility] Medical History (Updated 04/04/25 @ 15:35 by Delmis Corral PRODUCT SUPPORT ENGINEER, PRODUCT SUPPORT ENGINEER-C) Encounter for education Cancer Back pain Shortness of breath on exertion Leg cramps History of stress test Primary leiomyosarcoma of pelvis Anemia due to chronic blood loss Menorrhagia Wears dentures High cholesterol Loss of consciousness Gastric reflux Smoker Cardiology follow-up encounter History of echocardiogram Cardiac murmur History of non-ST elevation myocardial infarction (NSTEMI) (06/2014) Essential (primary) hypertension Atherosclerosis of coronary artery without angina pectoris Kidney stones Surgical History History of cardiac catheterization Hx of oral surgery Hx laparoscopic cholecystectomy Hx of left cataract extraction History of hysterectomy Cataract extraction status of right eye Hx of tubal ligation History of coronary artery stent placement (03/31/21) Family History Father Kidney disease Aunt Cancer paternal Other Heart disease Social History household members: spouse housing: house Smoking Status: Current every day smoker tobacco type: cigarettes Tobacco: How many years used: 39 alcohol intake: never substance use type: does not use caffeine: Yes Type: coffee Number of servings: 1 and tea Number of servings: 2 Intake Vital Signs 03/28/25 15:36 03/29/25 14:36 04/02/25 10:06 04/04/25 14:13 04/04/25 14:17 Height 5 ft 7 in 5 ft 7 in 5 ft 7 in 5 ft 7 in 5 ft 7 in Weight: 225 lb 225 lb BMI 35.2 35.2 BP 116/77 125/80 H Blood Pressure Location Lt brachial Lt brachial Position Sitting Sitting Respiration 18 16 Pulse 89 83 Pulse Source Monitor Monitor Temp 98.8 F 98.2 F Temperature Source Temporal Artery Temporal Artery Pulse Oximetry (%) 96 98 Oxygen Delivery Method room air room air Intake Is patient in pain?: No Allergies No Known Allergies Allergy (Verified 04/04/25 14:12) Medications ?Medication ?Instructions ?Recorded ?Confirmed ?Type aspirin 81 mg chewable tablet 81 mg PO DAILY@0800 hx o f mi 06/09/19 04/02/25 History atorvastatin 80 mg tablet 80 mg PO QHS cholesterol #90 tabs 11/29/23 03/28/25 Rx famotidine 20 mg tablet (Pepcid) 20 mg PO BID 11/29/23 03/28/25 History sertraline 50 mg tablet (Zoloft) 50 mg PO QHS 11/29/23 03/28/25 History lidocaine-prilocaine 2.5 %-2.5 % 1 applic topical ONCE PRN port 04/04/25 04/04/25 Rx topical cream access 30 days #30 grams ondansetron 8 mg disintegrating 8 mg PO Q8H PRN nausea and 04/04/25 04/04/25 Rx tablet vomiting #30 tabs prochlorperazine maleate 10 mg 10 mg PO Q6H PRN nausea and 04/04/25 04/04/25 Rx tablet vomiting #30 tabs Have you fallen in the past year?: No Central Venous Access Central Venous Access: Yes Port/PICC: Port Exam Physical Exam Narrative ECOG 0 Const alert, oriented x3 and no apparent distress General Appearance: comfortable HEENT normocephalic Face and Sinus: normal facial exam Eyes General Eye: normal appearance of both eyes Chest Chest: vascular access Psych mental status grossly normal Attitude: calm and engaged Coding Level of Care Code Off vis,est,level 5 Exam Problem Focused Diagnoses Primary leiomyosarcoma of pelvis C49.5 Encounter for education Z71.9 Assessment and Plan Assessment and Plan (1) Primary leiomyosarcoma of pelvis: Status: Acute Comment: 2024 (2) Encounter for education: Status: Acute Medications: New lidocaine-prilocaine 2.5-2.5 % 1 applic topical ONCE 30 days PRN 30 grams 2RF port access C49.5 - 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 ondansetron 8 mg PO Q8H PRN 30 tabs 1RF nausea and vomiting C49.5 - 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 prochlorperazine maleate 10 mg PO Q6H PRN 30 tabs 2RF nausea and vomiting R11.2 - Nausea with vomiting, unspecified, T45.1X5A - Adverse effect of antineoplastic and immunosuppressive drugs, initial encounter Plan 54-year-old female with incidental finding of a large left pelvic mass on CT when she presented with symptoms due to urinary tract infection. Past medical history notable for status post hysterectomy, bilateral salpingectomy and right oophorectomy for fibroid uterus was excessive menstrual bleeding causing iron deficiency anemia in 2021. Transvaginal ultrasound suggested left ovarian enlargement. January 26, 2025 underwent exploratory laparotomy left oophorectomy and removal ofpelvic mass, omentectomy by Dr. Grady. 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 Left oophorectomy showed no significant pathologic changes, omentum showed no evidence of malignancy and peritoneal washings showed no malignant cells. Was seen at [facility] sarcoma clinic by Dr. Cunningham in March 2025 who recommended standard adjuvant chemotherapy with gemcitabine Taxotere for 6 cycles followed by maintenance pazopanib plus letrozole indefinite/till progression. Of note her CA125 was not elevated. Chronic comorbid conditions: Obesity, dyslipidemia, coronary artery disease, hypertension and active smoker. Plan: Based on NCCN guideline and consultation with Drs. Grady and Octavio: 1-adjuvant systemic chemotherapy with gemcitabine and Taxotere for 6 cycles. Patient will be supported with antiemetics, steroids and primary prophylaxis against febrile neutropenia with growth factor was requested but denied by her insurance company. The patient has been thoroughly educated to risks/benefits associated with docetaxel/gemcitabine. Specifically, she has been educated to potential side effects, recommendations for symptom management, and circumstances in which she should contact provider immediately, such as the development of any signs/symptoms of infection inclusive of temperature > 100.4. Encouraged to go directly to ED should fever occur outside normal clinic hours. She has been provided written educational information and after hours contact information andprescriptions for prn antiemetics/EMLA cream. A significant amount of time was allotted for questions. All the patient's concerns were addressed to her satisfaction and she is agreeable to proceed. Tentatively, she will commence with cycle 1 on 04/19/2025. 2. Following adjuvant systemic chemotherapy maintenance pazopanib letrozole indefinite/till progression. 3. Refer to urology for left renal pelvis calculus with mild hydronephrosis. Given history of recurrent kidney stones but has never seen a urologist before. I spent 45 minutes today reviewing labs, records and history. Time includes coordination of care and patient education, as well as documenting clinical information. Clinical Quality Measures Falls Risk Screening/Assistive Devices Have you fallen in the past year?: No 04/04/25 1537 <Electronically signed by Delmis delgado PRODUCT SUPPORT ENGINEER PRODUCT SUPPORT ENGINEER-C> Date _ Delmis Corral NP PRODUCT SUPPORT ENGINEER-C Cosigner Signature: Date (if applicable) CC: ~ [facility] [employer] Work Phone: 1(887) 180-920705-19-2025 Consult note [facility] Medical Records Department [address] [place] [address] Anesthesia Postop Eval II 04/02/25 1305 MR#: [id number] Acct: [id number] Name: UZMA MCDONALD CADEN Rep #:[id number] : 1970 54 From: Ck Cotto MD PCP: Dr. David Fink MD Status:REG S DC Y Race: C Location: [address] Anesthesia Postop Eval I Sum Postop Eval Completion status Anesthesia document: Postop Eval 1 completed: Yes Anesthesia Postop Eval I Summary Anesthesia Postop Eval I Summary: Anesthesia Postop Eval I: Assessment Summary Airway patent Yes 04/02/25 12:06 OPERATIONS AND MAINTENANCE TECHNICAN.HBARR Spontaneous unlabored Yes 04/02/25 12:06 OPERATIONS AND MAINTENANCE TECHNICAN.HBARR respirations Mental status Awake 04/02/25 12:06 OPERATIONS AND MAINTENANCE TECHNICAN.HBARR nausea No 04/02/25 12:06 OPERATIONS AND MAINTENANCE TECHNICAN.HBARR Vomiting No 04/02/25 12:06 OPERATIONS AND MAINTENANCE TECHNICAN.HBARR Anesthesia Postop Eval I: Fluid Summary Crystalloid volume administer 500 04/02/25 12:06 OPERATIONS AND MAINTENANCE TECHNICAN.HBARR (ml) Colloids volume administered ( ml) Blood Product volume administered (ml) Total IV fluid infused 500 04/02/25 12:06 OPERATIONS AND MAINTENANCE TECHNICAN.ABRAN Anesthesia Postop Eval I: Summary Notes Anesthesia Complication No 04/02/25 12:06 OPERATIONS AND MAINTENANCE TECHNICAN.HBARR Anesthesia Complication Comment: Post-operative progress note Anesthesia: Postop Eval II Evaluation Mental status: Awake Pain Level: 0 nausea: No Vomiting: No 04/02/25 1305 > Date _ Ck Cotto MD Cosigner Signature: Date CC: ~ Signed [facility]05-19-2025 Consult note Author Laquita Melendez [facility] Note Date/Time April 02, 2025 12:06 pm [facility] Medical Records Department [address] [place] [address] Anesthesia Postop Eval I 04/02/25 1153 MR#: [id number] Acct: [id number] Name: AMELIAKRISTINA RODRIGUEZSILVA NEGRETE Rep #:[id number] : 1970 54 From: Laquita Melendez CRNA PCP: Dr. David Fink MD Status:REG S DC Y Race: C Location: [place] [address] Anesthesia: Postop Eval I Current Vital Signs Temperature: 97.4 F Pulse Rate: 72 Blood Pressure: 115/68 Respiratory Rate: 14 Pulse Ox: 97 Oxygen Delivery Method: Room Air Assessment Airway patent: Yes Spontaneous unlabored respirations: Yes Mental status: Awake nausea: No Vomiting: No Anesthesia Complication: No Fluid Hydration Crystalloid volume administer (ml): 500 Total IV fluid infused: 500 Progress Note Anesthesia document: Postop Eval 1 completed: Yes 04/02/25 1206 <Electronically signed by Laquita ALDRIDGE NA> Date _ Laquita Melendez 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 David Fink MD Status:REG S SC Location: [place] [address] History and Physical Date of Admission: 04/02/25 Intake Vital Signs 02/26/2511:18 03/26/2513:32 Height 5 ft 7 in Weight: 223 lb 2 oz 225 lb BMI 34.9 BP 116/75 121/80 H Blood Pressure Location Lt brachial Lt brachial Position Sitting Sitting Respiration 18 17 Pulse 76 96 Pulse Source Monitor Monitor Temp 98.5 F Pulse Oximetry (%) 96 95 Oxygen Delivery Method room air room air Intake Visit Reasons: PORT PLACEMENT Chief Complaint: port placement Is patient in pain?: No Allergies No Known Allergies Allergy (Verified 03/26/25 13:33) Medications ?Medication ?Instructions ?Recorded ?Confirmed ?Type aspirin 81 mg chewable tablet 81 mg PO DAILY@0800 hx of mi 06/09/19 History atorvastatin 80 mg tablet 80 mg PO QHS cholesterol #90 tabs 03/26/25 Rx famotidine 20 mg tablet (Pepcid) 20 mg PO BID 11/29/23 03/26/25 History sertraline 50 mg tablet (Zoloft) 50 mg PO DAILY 11/29/23 03/26/25 History PFSH Medical History (Updated 03/26/25 @ 13:32 by Isabella Hylton) Primary leiomyosarcoma of pelvis Postoperative pain Anemia due to chronic blood loss Menorrhagia Uterine fibroid Wears dentures Shortness of breath on exertion History of blood transfusion High cholesterol Loss of consciousness Gastric reflux Smoker Cardiology follow-up encounter History of echocardiogram Cardiac murmur Nicotine dependence History of non-ST elevation myocardial infarction (NSTEMI) (06/2014) Essential (primary) hypertension Atherosclerosis of coronary artery without angina pectoris Kidney stones Surgical History History of hysterectomy Cataract extraction status of right eye Hx of tubal ligation History of cholecystectomy History of coronary artery stent placement (03/31/21) Family History Father Kidney diseaseAunt Cancer paternalOther Heart disease Social History household members: spouse housing: house Smoking Status: Current every day smoker tobacco type: cigarettes Tobacco: How many years used: 39 alcohol intake: never substance use type: does not use caffeine: Yes Type: coffee Number of servings: 1 and tea Number of servings: 2 HPI HPI HPI: Patient is a 54-year-old female here for port placement for chemotherapy. ROS General General: Yes weight change; No appetite, fatigue, colon cancer, breast cancer or weakness HEENT HEENT: Yes eye surgery; No difficulty swallowing, eye injury, swollen glands or hoarseness Endo Endocrine: No thyroid disease, diabetes mellitus, thyroid cancer, Hair loss, heat intolerance or cold intolerance Skin Skin: No rash or changing moles Musc Musculoskeletal: Yes back problems; No arthritis, rheumatoid arthritis, gout or joint pain Cardio Cardiovascular: Yes high blood pressure, heart attack and heart stent; No murmur, pacemaker, heart disease, atrial fibrillation, palpitations, shortness of breath with exertion or chest pain Additional Details: Blood pressure has been good, meds on hold at this time Psych Psychiatric: No depression, anxiety or hearing voices Resp Respiratory: No shortness of breath, No sleep apnea, Yes cough, No COPD, No asthma, No emphysema and No wheezing Gastro Gastrointestinal: No abdominal pain, No nausea or vomiting, No diarrhea, No constipation, No blood in stool, Yes acid reflux, No hemorrhoids, No ulcers, No gallbladder problem and No black,tarry stools Benjamin Hematologic: No blood thinners, No blood disorders, No bleeding, No anemia and No blood clots Neuro Neurologic: No system reviewed and no additional complaints, except as documented, No as per HPI, No abnormal gait, No abnormal hearing, No abnormal movements, No abnormal speech, No behavioral changes, No burning sensations, No confusion, No convulsions, No disequilibrium, No dizziness, No localized weakness, No frequent falls, No headache(s), No lack of coordination, No loss ofvision, No memory loss, No numbness, No other visual disturbances, No radicular pain, No restless legs, No sensory deficit, No syncope, No tingling, No tremor(s), No weakness and No other Exam Const General: cooperative Orientation: alert and oriented x3 HENMT Head: normal to inspection Neck Neck: normal visual inspection and full ROM Chest Chest palpation & inspection: normal inspection of the chest Resp Effort & Inspection: normal respiratory effort Auscultation: clear to auscultation bilaterally Cardio Rate: regular rate Rhythm: regular rhythm GI Inspection: non-distended Palpation: soft and nontender Skin General: no rashes or lesions noted Neuro General: patient alert and patient oriented x3 Extrem General: full ROM Psych Appearance: grossly normal Mental Status: mental status grossly normal Assessment and Plan Assessment and Plan (1) Encounter for insertion of venous access port: Status: Acute Plan: The patient requires port for chemotherapy for leiomyosarcoma. I discussed portplacement with her in detail. I discussed the procedure in detail as well as the risks including but not limited to bleeding, infection, pneumothorax, DVT. Patient understands the risks and is willing to proceed Theo Richard MD Pager: [facility] [address] [place] [address], [address] [place] [phone] Office: I have examined the patient and the H&P has been reviewed. There are no clinicalchanges since date of exam. 04/02/25 1120 <Electronically signed by Theo Richard MD> Cosigner Signature (if applicable): CC: Dr. Theo Richard MD; Dr. David Fink MD~ Signed [facility] Work Phone: 1(758) 487-390205-19-2025 Radiology Diagnostic study note [facility] Imaging Services [address] [place] [address] CXR for Line Placement MR#: [id number] Acct: [id number] Name: UZMA MCDONALD Rep #: [id number] 6 : 1970 F 54 From: Jake Canales MD PCP: Dr. David Fink MD Status: REG S DC Study:CXR for Line Placement Date of Exam: 04/02/25 Exam# [id number] Ordering Dr: Theo Carmichael MD PROCEDURE: CXR FOR LINE PLACEMENT 04/02/2025 REASON FOR EXAM: LINE PLACEMENT TECHNIQUE: Portable chest radiograph obtained. COMPARISON: Prior study dated June 16, 2021. FINDINGS: A right-sided port a catheter is seen with the tip at the junction of the superior vena cava and right atrium. EKG electrodes are seen. Heart size is upper limits of normal. The lungs are clear. RAD/CXR for Line Placement IMPRESSION: A right-sided port a catheter has been placed with the tip at the junction of the superior vena cava and right atrium. The heart size is upper limits of normal. Reading Location: [facility] CC: Dr. Theo Richard MD; Dr. David Fink MD ~ Plant Control Aide: Signed [facility]05-19-2025 Discharge summary [facility] Medical Records Department [address] [place] [address] Instructions for Home/Discharge Instructions 04/02/25 1218 MR#: [id number] Acct: [id number] Name: UZMA MCDONALD Rep #:[id number] : 1970 54 From: Theo villegas MD PCP: Dr. David Fink MD Status:REG S DC Discharge Instructions Procedure Gallbladder Diet Discharge Diet: Light diet - advance as tolerated Activity Discharge Activity: May Not Drive (for 2-3 days or while taking narcotic pain medications.) and - (Do not drive, work heavy equipment or sign legal documents for 24 hours.) May shower in (days): 1 Lifting Restrictions: 20 lbs for 2 weeks Additional Activity Instructions:: Pain medication may cause nausea. You should typically eat lightfoods as you take your pain medications. Pain medication may also cause constipation. If this is a problem for you, please discuss with yourdoctor. Resume aspirin tomorrow Dressing / Incision Call your doctor if your incision/area has: Continuous Slow Oozing, Sudden Increased Bleeding, Increased Pain/ Swelling, Increased Redness and Foul Smelling Discharge Call your doctor if you observe: Fever of 101 or Higher Suture Line Care: Avoid Pulling/Pushing and Avoid Pinching/Bending Remove Dressing in: 2 days Additional Dressing/Incision Instructions:: Leave operative bandaids on for 2 days. When you removedressing, leave Steri-Strips on until your follow-up appointment, or until the Steri-Strips fall off on their own. Follow Up Care Please Follow Up With: Theo Richard MD When: Please call to schedule 2 week follow up appointment. [phone] Test Results: Test results from this visit will be discussed in further detail at your follow- up appointment, if applicable. Discharge Plan Admission Attending Provider: Theo Richard Primary Care Provider: David Fink Instructions Print Language: Tuvaluan Discharge Orders/Prescriptions Prescriptions: No Action sertraline [Zoloft] 50 mg tablet 50 mg PO QHS famotidine [Pepcid] 20 mg tablet 20 mg PO BID atorvastatin 80 mg tablet 80 mg PO QHS Qty: 90 3RF aspirin 81 MG tablet,chewable 81 mg PO DAILY@0800 Referrals / Follow Up: David Fink MD [Primary Care Provider] - Disposition Disposition (needs filled in before D/C Order can be placed): Home, Self Care 04/02/25 1219Abarbara Richard MD CC: Dr. David Fink MD ~ Signed [facility]05-19-2025 Procedure note [facility] Medical Records Department [address] [place] [address] Operative Report 04/02/25 1216 MR#: [id number] Acct: [id number] Name: UZMA MCDONALD Rep #:[id number] : 1970 54 From: Theo villegas MD PCP: Dr. David Fink MD Status:REG S SC Location: [place] [address] Operative Report (Standard) Operative Information Date of Procedure: 04/02/25 Pre-Operative Diagnosis: Need for vascular access for chemotherapy Post-Operative Diagnosis: Same Surgery/Procedure Performed: Ultrasound and fluoroscopy guided right chest port placement utilizingright IJ [employer] floorperson: No Type of Anesthesia: Local MAC RN Documented Start/Stop Times: Operation Date: 04/02/25 11:30 Case Time Into Pre-Op 04/02/25 09:52 Out of Pre-Op 04/02/25 11:19 Anesthesia Start 04/02/25 11:21 Into Room 04/02/25 11:21 Procedure Start 04/02/25 11:39 Procedure End 04/02/25 11:55 Anesthesia End 04/02/25 11:59 Out of Room 04/02/25 11:59 Procedure Start Time: 11:39 Procedure Stop Time: 11:55 Select all DRAINS/GRAFTS/IMPLANTS that apply: Implanted device Implanted device details: 8 German PowerPort Estimated Blood Loss: 5 Specimen collected: No Description of surgery: After obtaining informed consent patient was brought back to the operating room MAC anesthesia was induced and the right chest and neck were prepped in normal sterile fashion. Ultrasound was used to evaluate both IJs and the right IJ was selected. Next, using a needle, the right IJ was accessed [place] guidewire was passed on into the superior vena cava under fluoroscopy guidance. A small incision was made over the puncture site and the dilator introducer was placed over the guidewire. Next this was capped and the pocket was made for the port. 1% lidocaine with epinephrine was injected in the proposed port site. An incision was made with scalpel. Electrocautery was used to make a pocket under the skin and subcutaneous tissue. Hemostasis was obtained. Next, the catheter was tunneled up to the neck incision site and placed through the introducer. The peel-away introducer was removed and theposition of the catheter was confirmed on fluoroscopy. Next, the catheter was trimmed and attached to the port with the locking device. Interrupted 2-0 Vicryl sutures were used to anchor the port to t he chest wall and then the port was placed inside the pocket. The pocket was then flushed with saline and the port irrigated with saline. There was good blood return and the port flushed easily. Next, heparinwas injected into the port. The skin was closed with subcutaneous interrupted 3-0 Vicryl sutures. A single 3-0 Vicryl sutures placed under the skin at the neck incision site. Steri-Strips were placed as well as op sites. Patient tolerated procedure well, was taken to PACU in stable condition. Chest x-ray will be obtained. Surgical Findings: None Complications Complications: No Admit VTE Documentation VTE Mechan Device Prophylaxis: SCD's 04/02/25 1218 Cosigner Signature (if applicable): CC: Dr. Theo Richard MD; Dr. David Fink MD~ Signed [facility]05-19-2025 Consult note [facility] Medical Records Department [address] [place] [address] Anesthesia Postop Eval I 04/02/25 1153 MR#: [id number] Acct: [id number] Name: UZMA MCDONALD Rep #:[id number] : 1970 54 From: Laquita Melendez CRNA PCP: Dr. David Fink MD Status:REG S DC Y Race: C Location: [place] [address] Anesthesia: Postop Eval I Current Vital Signs Temperature: 97.4 F Pulse Rate: 72 Blood Pressure: 115/68 Respiratory Rate: 14 Pulse Ox: 97 Oxygen Delivery Method: Room Air Assessment Airway patent: Yes Spontaneous unlabored respirations: Yes Mental status: Awake nausea: No Vomiting: No Anesthesia Complication: No Fluid Hydration Crystalloid volume administer (ml): 500 Total IV fluid infused: 500 Progress Note Anesthesia document: Postop Eval 1 completed: Yes 04/02/25 1206 NA> Date _ Laquita Melendez CRNA Cosigner Signature: Date CC: ~ Signed [facility]05-19-2025 Consult note Author Ck Cotto [facility] Note Date/Time April 02, 2025 9:51a m [facility] Medical Records Department [address] [place] [address] Pre-Anesthesia Evaluation 04/02/25 0951 MR#: [id number] Acct: [id number] Name: UZMA MCDONALD Rep #:[id number] : 1970 54 From: Ck Cotto MD PCP: Dr. David Fink MD Status:REG S DC Y Race: C Location: [facility] ASA Classification* ASA Classification ASA Classification: 3 Assessment & Plan Anesthesia* Anesthesia Assessment Anesthesia Assessment: Discussed sedation and/or anesthesia options, risks, benefits, and alternatives with patient/parents/legal guardian/POA. Questions invited. The patient/parents/legal guardian/POA seems to understand and agrees to proceedwith anesthesia plan. Reviewed the physical assessment, medical history, allergy history and patient home medications list prior to surgery/procedure/anesthetic and documented any changes. Performed airway and anesthesia risk assessments. Anesthesia Type Anesthesia Type: MAC Anesthesia Focused Assessment* Airway Assessment Mouth opens: >3 cm Mallampati Score: II Focused Labs Anesthesia Preop lab: CBC WBC 8.2 K/mm3 (4.4-11.0) 01/10/25 13:45 01/10/25 RBC 4.62 M/mm3 (4.2-5.4) 01/10/25 13:45 01/10/25 Hgb 13.9 g/dL (12.0-15.0) 01/10/25 13:45 01/10/25 Hct 42.6 % (37-47) 01/10/25 13:45 01/10/25 Plt Count 250 K/mm3 (150-450) 01/10/25 13:45 01/10/25 CHEMISTRY Potassium 4.2 mmol/L (3.3-5.1) 01/10/25 13:45 01/10/25 Sodium 138 mmol/L (133-145) 01/10/25 13:45 01/10/25 Magnesium 2.1 mg/dL (1.6-2.6) 11/30/22 14:57 11/30/22 BUN 12 mg/dL (4-19) 01/10/25 13:45 01/10/25 Creatinine 0.6 mg/dL (0.6-1.0) 01/10/25 13:45 01/10/25 Glucose 95 mg/dL (70-99) 01/10/25 13:45 01/10/25 POC Glucose 167 mg/dL (74-106) H 05/29/22 12:06 05/29/22 TSH 2.02 uIU/mL (0.358-3.74) 11/30/22 14:57 COAG PT 13.8 SECONDS (11.7-14.9) 05/25/22 15:09 Pre-Assessment Diagnosis/Proposed Procedure Planned Operative Procedure(s): INSERTION VASCULAR PORT RIGHT POSS LEFT Anesthesia History Anesthesia History - element burner: Anesthesia History - element burner Hx Hospitalization No 03/28/25 14:20 Any Problems With Anesthesia No 03/28/25 14:20 Cholinesterase deficiency No 03/28/25 14:20 You/Your Family Experience No 03/28/25 14:20 fever (hyperthermia) with Relationship Recent Exposure to Contagious No 05/28/22 08:52 Disease Does patient have nerve No 03/28/25 14:20 stimulator Patient instructed to have device shut off --Does patient have Pacemaker or ICD? When Was Last Pacemaker Check QUESTION #4 FULL TEXT: You/Your Family Experience fever (hyperthermia) with Anesthesia Last Oral Intake Last Oral intake: Last Oral Intake NPO since Meds taken in AM with sips of water? 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 - element burner: PONV - element burner Female Yes 03/28/25 14:20 HX of Motion Sickness No 03/28/25 14:20 HX of N/V After Surgery No 03/28/25 14:20 Non-Smoker No 03/28/25 14:20 Duration of Surgery greater No 03/28/25 14:20 than 60 minutes Number of Risk Factors 1 03/28/25 14:20 PONV Score Low Risk 03/28/25 14:20 Height & Weight Height & Weight: Anesthesia: Height & Weight Height 5 ft 7 in 03/30/25 08:51 Weight: 101.151 kg 03/30/25 08:51 Respiratory Assessment Respiratory Assessment - element burner: Respiratory Tract Infection Hx - element burner Hx Respiratory Tract Infection No 03/28/25 14:20 STOP Sleep Apnea STOP Sleep Apnea - element burner: STOP Sleep Apnea - element burner Hx Hypertension Yes 03/28/25 14:20 Hx Sleep Apnea No 03/28/25 14:20 CPAP BIPAP Do you snore loudly (louder Yes 03/28/25 14:20 than talking or can be heard Do you often feel tired/ No 03/28/25 14:20 fatigued/ sleepy during daytime? Has anyone observed you stop No 03/28/25 14:20 breathing during sleep? STOP Results Positive 03/28/25 14:20 QUESTION #5 FULL TEXT : Do you snore loudly (louder than talking or can be heard through closed doors)? Tobacco Use History Tobacco Use History - element burner: Tobacco Use History - element burner Tobacco Use Cigarettes 03/28/21 15:34 Smoking Status Current every day smoker 03/28/25 14:20 Hx Tobacco Use Yes 03/28/25 14:20 Years Smoking Packs Smoked per Day Smoking Cessation Date was within the last 15 years Hx Smoking Cessation Date Hx Smoking Cessation Counseling Hematologic Medial History Hematologic Hx - element burner: Hematologic Medical Hx - grounds person Hx of Blood Transfusion Yes 03/28/25 14:20 Hx of Transfusion in last 3 No 03/28/25 14:20 Months Date of Last Transfusion (if within last 3 months) Ever experience any problems No 03/28/25 14:20 with transfusion(s)? Specify any problems Hx of Preganancy in last 3 No 03/28/25 14:20 Months Nurse Filling Out Transfusion DSCHRIBER 03/28/25 14:20 & Questions: Date: 03/28/25 03/28/25 14:20 Time: 14:21 03/28/25 14:20 Patient unable to answer at this time (ie. 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 History - element burner: /Reproductive Hx- element burner Hx Now No 03/28/25 14:20 Gestational Age (in weeks): EDC: Hx Hx Para Hx Section SAB No 03/28/25 14:20 Active Medications Active Medications: Current Medications Generic Name Dose Route Start Last Admin Trade Name Freq PRN Reason Stop Dose Admin Cefazolin Sodium 2 gm/ Sodium 110 mls @ 150 mls/hr 04/02/25 11:30 Chloride IV 04/02/25 12:13 INTRAOP ONE PFSH Medical History Cancer Back pain Shortness of breath on exertion Leg cramps History of stress test Primary leiomyosarcoma of pelvis Anemia due to chronic blood loss Menorrhagia Wears dentures High cholesterol Loss of consciousness Gastric reflux Smoker Cardiology follow-up encounter History of echocardiogram Cardiac murmur History of non-ST elevation myocardial infarction (NSTEMI) (06/2014) Essential (primary) hypertension Atherosclerosis of coronary artery without angina pectoris Kidney stones Home Medications ?Medication ?Instructions ?Recorded ?Last Taken ?Type aspirin 81 mg chewable tablet 81 mg PO DAILY@0800 hx o f mi 06/09/19 05/23/22 History atorvastatin 80 mg tablet 80 mg PO QHS cholesterol #90 tabs 11/29/23 Unknown Rx famotidine 20 mg tablet (Pepcid) 20 mg PO BID 11/29/23 Unknown History sertraline 50 mg tablet (Zoloft) 50 mg PO QHS 11/29/23 Unknown History Allergy/AdvReac Type Severity Reaction Status Date / Time No Known Allergies Allergy Verified 03/29/25 14:36 Family History Father Kidney disease Aunt Cancer paternal Other Heart disease Surgical History History of cardiac catheterization Hx of oral surgery Hx laparoscopic cholecystectomy Hx of left cataract extraction History of hysterectomy Cataract extraction status of right eye Hx of tubal ligation History of coronary artery stent placement (03/31/21) Social History household members: spouse housing: house Smoking Status: Current every day smoker tobacco type: cigarettes Tobacco: How many years used: 39 alcohol intake: never substance use type: does not use caffeine: Yes Type: coffee Number of servings: 1 and tea Number of servings: 2 Review of Systems (Anesthesia) ROS Narrative System reviewed and no additional complaints, except as documented. 04/02/2551 <Electronically signed by Ck Cotto MD > Date _ Ck Cotto MD Cosigner Signature: Date CC: ~ Signed [facility] Work Phone: [phone]) 529-874805-19-2025 History and physical note [facility] Medical Records Department [address] [place] [address] History & Physical Exam 04/02/25 1120 MR#: [id number] Acct: [id number] Name: UZMA MCDONALD Rep #:[id number] : 1970 54 From: Theo villegas MD PCP: Dr. David Fink MD Status:REG S DC Location: [place] [address] History and Physical Date of Admission: 04/02/25 Intake Vital Signs 02/26/2511:18 03/26/2513:32 Height 5 ft 7 in Weight: 223 lb 2 oz 225 lb BMI 34.9 BP 116/75 121/80 H Blood Pressure Location Lt brachial Lt brachial Position Sitting Sitting Respiration 18 17 Pulse 76 96 Pulse Source Monitor Monitor Temp 98.5 F Pulse Oximetry (%) 96 95 Oxygen Delivery Method room air room air Intake Visit Reasons: PORT PLACEMENT Chief Complaint: port placement Is patient in pain?: No Allergies No Known Allergies Allergy (Verified 03/26/25 13:33) Medications ?Medication ?Instructions ?Recorded ?Confirmed ?Type aspirin 81 mg chewable tablet 81 mg PO DAILY@0800 hx of mi 06/09/19 History atorvastatin 80 mg tablet 80 mg PO QHS cholesterol #90 tabs 03/26/25 Rx famotidine 20 mg tablet (Pepcid) 20 mg PO BID 11/29/23 03/26/25 History sertraline 50 mg tablet (Zoloft) 50 mg PO DAILY 11/29/23 03/26/25 History PFS Medical History (Updated 03/26/25 @ 13:32 by Isabella Hylton) Primary leiomyosarcoma of pelvis Postoperative pain Anemia due to chronic blood loss Menorrhagia Uterine fibroid Wears dentures Shortness of breath on exertion History of blood transfusion High cholesterol Loss of consciousness Gastric reflux Smoker Cardiology follow-up encounter History of echocardiogram Cardiac murmur Nicotine dependence History of non-ST elevation myocardial infarction (NSTEMI) (06/2014) Essential (primary) hypertension Atherosclerosis of coronary artery without angina pectoris Kidney stones Surgical History History of hysterectomy Cataract extraction status of right eye Hx of tubal ligation History of cholecystectomy History of coronary artery stent placement (03/31/21) Family History Father Kidney diseaseAunt Cancer paternalOther Heart disease Social History household members: spouse housing: house Smoking Status: Current every day smoker tobacco type: cigarettes Tobacco: How many years used: 39 alcohol intake: never substance use type: does not use caffeine: Yes Type: coffee Number of servings: 1 and tea Number of servings: 2 HPI HPI HPI: Patient is a 54-year-old female here for port placement for chemotherapy. ROS General General: Yes weight change; No appetite, fatigue, colon cancer, breast cancer or weakness HEENT HEENT: Yes eye surgery; No difficulty swallowing, eye injury, swollen glands or hoarseness Endo Endocrine: No thyroid disease, diabetes mellitus, thyroid cancer, Hair loss, heat intolerance or cold intolerance Skin Skin: No rash or changing moles Musc Musculoskeletal: Yes back problems; No arthritis, rheumatoid arthritis, gout or joint pain Cardio Cardiovascular: Yes high blood pressure, heart attack and heart stent; No murmur, pacemaker, heart disease, atrial fibrillation, palpitations, shortness of breath with exertion or chest pain Additional Details: Blood pressure has been good, meds on hold at this time Psych Psychiatric: No depression, anxiety or hearing voices Resp Respiratory: No shortness of breath, No sleep apnea, Yes cough, No COPD, No asthma, No emphysema and No wheezing Gastro Gastrointestinal: No abdominal pain, No nausea or vomiting, No diarrhea, No constipation, No blood in stool, Yes acid reflux, No hemorrhoids, No ulcers, No gallbladder problem and No black,tarry stools Benjamin Hematologic: No blood thinners, No blood disorders, No bleeding, No anemia and No blood clots Neuro Neurologic: No system reviewed and no additional complaints, except as documented, No as per HPI, No abnormal gait, No abnormal hearing, No abnormal movements, No abnormal speech, No behavioral changes, No burning sensations, No confusion, No convulsions, No disequilibrium, No dizziness, No localized weakness, No frequent falls, No headache(s), No lack of coordination, No loss ofvision, No memoryloss, No numbness, No other visual disturbances, No radicular pain, No restless legs, No sensory deficit, No syncope, No tingling, No tremor(s), No weakness and No other Exam Const General: cooperative Orientation: alert and oriented x3 [facility] Head: normal to inspection Neck Neck: normal visual inspection and full ROM Chest Chest palpation & inspection: normal inspection of the chest Resp Effort & Inspection: normal respiratory effort Auscultation: clear to auscultation bilaterally Cardio Rate: regular rate Rhythm: regular rhythm GI Inspection: non-distended Palpation: soft and nontender Skin General: no rashes or lesions noted Neuro General: patient alert and patient oriented x3 Extrem General: full ROM Psych Appearance: grossly normal Mental Status: mental status grossly normal Assessment and Plan Assessment and Plan (1) Encounter for insertion of venous access port: Status: Acute Plan: The patient requires port for chemotherapy for leiomyosarcoma. I discussed portplacement with her in detail. I discussed the procedure in detail as well as the risks including but not limited to bleeding, infection, pneumothorax, DVT. Patient understands the risks and is willing to proceed Theo Richard MD Pager: [facility] [address] [place] [address], [address] [place] [address] Office: I have examined the patient and the H&P has been reviewed. There are no clinicalchanges since date of exam. 04/02/25 1120 Cosigner Signature (if applicable): CC: Dr. Theo Richard MD; Dr. David Fink MD~ Signed [facility]05-19-2025 [facility] Medical Records Department [address] [place] [address] History Physical Exam 04/02/25 1120 MR#: [id number] Acct: [id number] Name: UZMA MCDONALD Rep #: [id number] : 1970 54 From: Theo Richard MD PCP: Dr. David Fink MD Status:REG [facility] Location: [place] [address]-1 History and Physical Date of Admission: 04/02/25 Intake Vital Signs 02/26/2511:18 03/26/2513:32 Height 5 ft 7 in Weight: 223 lb 2 oz 225 lb BMI 34.9 BP 116/75 121/80 H Blood Pressure Location Lt brachial Lt brachial Position Sitting Sitting Respiration 18 17 Pulse 76 96 Pulse Source Monitor Monitor Temp 98.5 F Pulse Oximetry (%) 96 95 Oxygen Delivery Method room air room air Intake Visit Reasons: PORT PLACEMENT Chief Complaint: port placement Is patient in pain?: No Allergies No Known Allergies Allergy (Verified 03/26/25 13:33) Medications ???Medication ???Instructions ???Recorded ???Confirmed ???Type aspirin 81 mg chewable tablet 81 mg PO DAILY@0800 hx of mi 06/09/19 03/26/25 His tory atorvastatin 80 mg tablet 80 mg PO QHS cholesterol #90 tabs 11/29/23 5 Rx famotidine 20 mg tablet (Pepcid) 20 mg PO BID 11/29/23 03/26/25 History sertraline 50 mg tablet (Zoloft) 50 mg PO DAILY 11/29/23 03/26/25 History [facility] Medical History (Updated 03/26/25 @ 13:32 by Isabella Hylton) Primary leiomyosarcoma of pelvis Postoperative pain Anemia due to chronic blood loss Menorrhagia Uterine fibroid Wears dentures Shortness of breath on exertion History of blood transfusion High cholesterol Loss of consciousness Gastric reflux Smoker Cardiology follow-up encounter History of echocardiogram Cardiac murmur Nicotine dependence History of non-ST elevation myocardial infarction (NSTEMI) (06/2014) Essential (primary) hypertension Atherosclerosis of coronary artery without angina pectoris Kidney stones Surgical History History of hysterectomy Cataract extraction status of right eye Hx of tubal ligation History of cholecystectomy History of coronary artery stent placement (03/31/21) Family History Father Kidney diseaseAunt Cancer paternalOther Heart disease Social History household members: spouse housing: house Smoking Status: Current every day smoker tobacco type: cigarettes Tobacco: How many years used: 39 alcohol intake: never substance use type: does not use caffeine: Yes Type: coffee Number of servings: 1 and tea Number of servings: 2 HPI HPI HPI: Patient is a 54-year-old female here for port placement for chemotherapy. ROS General General: Yes weight change; No appetite, fatigue, colon cancer, breast cancer or weakness HEENT HEENT: Yes eye surgery; No difficulty swallowing, eye injury, swollen glands or hoarseness Endo Endocrine: No thyroid disease, diabetes mellitus, thyroid cancer, Hair loss, heat intolerance or cold intolerance Skin Skin: No rash or changing moles Musc Musculoskeletal: Yes back problems; No arthritis, rheumatoid arthritis, gout or joint pain Cardio Cardiovascular: Yes high blood pressure, heart attack and heart stent; No murmur, pacemaker, heart disease, atrial fibrillation, palpitations, shortness of breath with exertion or chest pain Additional Details: Blood pressure has been good, meds on hold at this time Psych Psychiatric: No depression, anxiety or hearing voices Resp Respiratory: No shortness of breath, No sleep apnea, Yes cough, No COPD, No asthma, No emphysema and No wheezing Gastro Gastrointestinal: No abdominal pain, No nausea or vomiting, No diarrhea, No constipation, No blood in stool, Yes acid reflux, No hemorrhoids, No ulcers, No gallbladder problem and No black,tarry stools Benjamin Hematologic: No blood thinners, No blood disorders, No bleeding, No anemia and No blood clots Neuro Neurologic: No system reviewed and no additional complaints, except as documented, No as per HPI, No abnormal gait, No abnormal hearing, No abnormal movements, No abnormal speech, No behavioral changes, No burning sensations, No confusion, No convulsions, No disequilibrium, No dizziness, No localized weakness, No frequent falls, No headache(s), No lack of coordination, No loss of vision, No memory loss, No numbness, No other visual disturbances, No radicular pain, No restless legs, No sensory deficit, No syncope, No tingling, No tremor(s), No weakness and No other Exam Const General: cooperative Orientation: alert and oriented x3 [facility] Head: normal to inspection Neck Neck: normal visual inspection and full ROM Chest Chest palpation inspection: normal inspection of the chest Resp Effort Ins (more content not included)...[facility]05-19-2025 Consult note [facility] Medical Records Department [address] [place] [address] Pre-Anesthesia Evaluation 04/02/25 0951 MR#: [id number] Acct: [id number] Name: UZMA MCDONALD Rep #:[id number] : 1970 54 From: Ck Cotto MD PCP: Dr. David Fink MD Status:REG S DC Y Race: C Location: [facility] ASA Classification* ASA Classification ASA Classification: 3 Assessment & Plan Anesthesia* Anesthesia Assessment Anesthesia Assessment: Discussed sedation and/or anesthesia options, risks, benefits, and alternatives with patient/parents/legal guardian/POA. Questions invited. The patient/parents/legal guardian/POA seems to understand and agrees to proceedwith anesthesia plan. Reviewed the physical assessment, medical history, allergy history and patient home medications list prior to surgery/procedure/anesthetic and documented any changes. Performed airway and anesthesia risk assessments. Anesthesia Type Anesthesia Type: MAC Anesthesia Focused Assessment* Airway Assessment Mouth opens: >3 cm Mallampati Score: II Focused Labs Anesthesia Preop lab: CBC WBC 8.2 K/mm3 (4.4-11.0) 01/10/25 13:45 01/10/25 RBC 4.62 M/mm3 (4.2-5.4) 01/10/25 13:45 01/10/25 Hgb 13.9 g/dL (12.0-15.0) 01/10/25 13:45 01/10/25 Hct 42.6 % (37-47) 01/10/25 13:45 01/10/25 Plt Count 250 K/mm3 (150-450) 01/10/25 13:45 01/10/25 CHEMISTRY Potassium 4.2 mmol/L (3.3-5.1) 01/10/25 13:45 01/10/25 Sodium 138 mmol/L (133-145) 01/10/25 13:45 01/10/25 Magnesium 2.1 mg/dL (1.6-2.6) 11/30/22 14:57 11/30/22 BUN 12 mg/dL (4-19) 01/10/25 13:45 01/10/25 Creatinine 0.6 mg/dL (0.6-1.0) 01/10/25 13:45 01/10/25 Glucose 95 mg/dL (70-99) 01/10/25 13:45 01/10/25 POC Glucose 167 mg/dL (74-106) H 05/29/22 12:06 05/29/22 TSH 2.02 uIU/mL (0.358-3.74) 11/30/22 14:57 COAG PT 13.8 SECONDS (11.7-14.9) 05/25/22 15:09 Pre-Assessment Diagnosis/Proposed Procedure Planned Operative Procedure(s): INSERTION VASCULAR PORT RIGHT POSS LEFT Anesthesia History Anesthesia History - element burner: Anesthesia History - element burner Hx Hospitalization No 03/28/25 14:20 Any Problems With Anesthesia No 03/28/25 14:20 Cholinesterase deficiency No 03/28/25 14:20 You/Your Family Experience No 03/28/25 14:20 fever (hyperthermia) with Relationship Recent Exposure to Contagious No 05/28/22 08:52 Disease Does patient have nerve No 03/28/25 14:20 stimulator Patient instructed to have device shut off --Does patient have Pacemaker or ICD? When Was Last Pacemaker Check QUESTION #4 FULL TEXT: You/Your Family Experience fever (hyperthermia) with Anesthesia Last Oral Intake Last Oral intake: Last Oral Intake NPO since Meds taken in AM with sips of water? 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 - element burner: PONV - element burner Female Yes 03/28/25 14:20 HX of Motion Sickness No 03/28/25 14:20 HX of N/V After Surgery No 03/28/25 14:20 Non-Smoker No 03/28/25 14:20 Duration of Surgery greater No 03/28/25 14:20 than 60 minutes Number of Risk Factors 1 03/28/25 14:20 PONV Score Low Risk 03/28/25 14:20 Height & Weight Height & Weight: Anesthesia: Height & Weight Height 5 ft 7 in 03/30/25 08:51 Weight: 101.151 kg 03/30/25 08:51 Respiratory Assessment Respiratory Assessment - element burner: Respiratory Tract Infection Hx - element burner Hx Respiratory Tract Infection No 03/28/25 14:20 STOP Sleep Apnea STOP Sleep Apnea - element burner: STOP Sleep Apnea - element burner Hx Hypertension Yes 03/28/25 14:20 Hx Sleep Apnea No 03/28/25 14:20 CPAP BIPAP Do you snore loudly (louder Yes 03/28/25 14:20 than talking or can be heard Do you often feel tired/ No 03/28/25 14:20 fatigued/ sleepy during daytime? Has anyone observed you stop No 03/28/25 14:20 breathing during sleep? STOP Results Positive 03/28/25 14:20 QUESTION #5 FULL TEXT : Do you snore loudly (louder than talking or can be heard through closeddoors)? Tobacco Use History Tobacco Use History - element burner: Tobacco Use History - element burner Tobacco Use Cigarettes 03/28/21 15:34 Smoking Status Current every day smoker 03/28/25 14:20 Hx Tobacco Use Yes 03/28/25 14:20 Years Smoking Packs Smoked per Day Smoking Cessation Date was within the last 15 years Hx Smoking Cessation Date Hx Smoking Cessation Counseling Hematologic Medial History Hematologic Hx - element burner: Hematologic Medical Hx - grounds person Hx of Blood Transfusion Yes 03/28/25 14:20 Hx of Transfusion in last 3 No 03/28/25 14:20 Months Date of Last Transfusion (if within last 3 months) Ever experience any problems No 03/28/25 14:20 with transfusion(s)? Specify any problems Hx of Preganancy in last 3 No 03/28/25 14:20 Months Nurse Filling Out Transfusion DSCHRIBER 03/28/25 14:20 & Questions: Date: 03/28/25 03/28/25 14:20 Time: 14:21 03/28/25 14:20 Patient unable to answer at this time (ie. 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 History - element burner: /Reproductive Hx- element burner Hx Now No 03/28/25 14:20 Gestational Age (in weeks): EDC: Hx Hx Para Hx Section SAB No 03/28/25 14:20 Active Medications Active Medications: Current Medications Generic Name Dose Route Start Last Admin Trade Name Freq PRN Reason Stop Dose Admin Cefazolin Sodium 2 gm/ Sodium 110 mls @ 150 mls/hr 04/02/25 11:30 Chloride IV 04/02/25 12:13 INTRAOP ONE PFSH Medical History Cancer Back pain Shortness of breath on exertion Leg cramps History of stress test Primary leiomyosarcoma of pelvis Anemia due to chronic blood loss Menorrhagia Wears dentures High cholesterol Loss of consciousness Gastric reflux Smoker Cardiology follow-up encounter History of echocardiogram Cardiac murmur History of non-ST elevation myocardial infarction (NSTEMI) (06/2014) Essential (primary) hypertension Atherosclerosis of coronary artery without angina pectoris Kidney stones Home Medications ?Medication ?Instructions ?Recorded ?Last Taken ?Type aspirin 81 mg chewable tablet 81 mg PO DAILY@0800 hx o f mi 06/09/19 05/23/22 History atorvastatin 80 mg tablet 80 mg PO QHS cholesterol #90 tabs 11/29/23 Unknown Rx famotidine 20 mg tablet (Pepcid) 20 mg PO BID 11/29/23 Unknown History sertraline 50 mg tablet (Zoloft) 50 mg PO QHS 11/29/23 Unknown History Allergy/AdvReac Type Severity Reaction Status Date / Time No Known Allergies Allergy Verified 03/29/25 14:36 Family History Father Kidney disease Aunt Cancer paternal Other Heart disease Surgical History History of cardiac catheterization Hx of oral surgery Hx laparoscopic cholecystectomy Hx of left cataract extraction History of hysterectomy Cataract extraction status of right eye Hx of tubal ligation History of coronary artery stent placement (03/31/21) Social History household members: spouse housing: house Smoking Status: Current every day smoker tobacco type: cigarettes Tobacco: How many years used: 39 alcohol intake: never substance use type: does not use caffeine: Yes Type: coffee Number of servings: 1 and tea Number of servings: 2 Review of Systems (Anesthesia) ROS Narrative System reviewed and no additional complaints, except as documented. 04/02/25950 > Date _ Ck العراقي Signature: Date CC: ~ Signed [facility]05-14-2025 Progress [facility] [address] [place] [address] OFFICE VISIT Date of Service: 03/28/25 1532 MR#: [id number] Acct: [id number] Name: UZMA MCDONALD Rep #: [id number] : 1970 From: Imani fair MD Age/Sex: 54/F [place] [facility] [place] Status: Signed HPI Subjective Date of Service 03/28/25 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 The patient was seen in [facility] emergency room January 08, 2025 with urinary symptoms that proved to be due to a UTI which improved with a course of antibiotics. An incidental left pelvic mass was seen on CT scan. January 08, 2025 CT abdomen and pelvis: FINDINGS: Lung bases: Clear Liver: Diffuse fatty infiltration. Enlarged Gallbladder: Surgically absent. Spleen: Normal size. Pancreas: Unremarkable. Adrenals: Unremarkable. Kidneys: Left peripelvic fat stranding with 14 mm nonobstructive calculus. Nonobstructive calculi are also noted in the left kidney.. Bladder: Unremarkable. Reproductive Organs: Prior hysterectomy. Adnexal regions are unremarkable. Bowel: No bowel obstruction. Appendix: Normal. Lymph nodes: There is a heterogeneously enhancing mass in the left pelvis measuring 7.3 x 8.1 cm. No other corresponding lymphadenopathy is noted. Vasculature: Mild diffuse atherosclerotic calcifications are noted. Peritoneum / Retroperitoneum: No ascites. No free air. Bones: Unremarkable. IMPRESSION: 1. Heterogeneous left pelvic mass concerning for neoplasm 2. Left pyelonephritis with nonobstructive stone. Nonobstructive calculi also noted in the right kidney. 3. Hepatic steatosis and hepatomegaly January 12, 2025 transvaginal ultrasound: IMPRESSION: Status post hysterectomy and right oophorectomy. Heterogeneous enlargement of the left ovary with blood flow. This corresponds with the CT findings. January 26, 2025 patient underwent exploratory laparotomy, left oophorectomy, removal of pelvic mass,omentectomy. Pathology: A. Pelvic mass excision: High-grade sarcoma with myogenic differentiation favorleiomyosarcoma. B. Pelvic mass excision: High-grade sarcoma with myogenic differentiation, favor leiomyosarcoma. C. Omentum, omentectomy benign adipose tissue negative for malignancy. D. Ovary left oophorectomy: Ovary with no significant pathologic changes. Comment: Sections from the pelvic mass show a highly cellular spindled and focally epithelioid malignant neoplasm with marked cytologic atypia, brisk mitotic activity and tumor cell necrosis. IHC at [facility] positive for SMA, negative for desmin, STAT6, pancytokeratin, S100 and CD34. Additional IHC done at [facility] showed negative Desmin, negative Caldesmon, ER diffuse strong positive, ALK negative, p53 aberrant (strong diffuse), PTEN retained staining, RB1 loss ofstaining, HMB45 negative. Again the overall morphologic and IHC features consistent with a high-grade sarcoma with a diagnosis of leiomyosarcoma is favored. The site of origin of this tumor is difficult to determine but the presence of ER staining raises the possibility of m?llerian origin. January 26, 2025 peritoneal washings no malignant cells identified. March 26, 2025 chest abdomen and pelvis CT: IMPRESSION: 1. Few scattered less than 6 mm indeterminate pulmonary nodules. Otherwise, no evidence of metastatic disease in the thorax. 2. Status post hysterectomy and resection of previously noted mass. Small indeterminate soft tissuenodules noted within the anterior pelvic mesentery and hysterectomy bed. These may represent sequela of postoperative changes. However, peritoneal carcinomatosis can not be excluded. Attention on follow-up is recommended. 3. 18 mm left renal pelvis obstructing calculus with mild hydronephrosis. Multiple other nonobstructing calculi. 4. 3 mm left UVJ/posterior urinary bladder wall calculus. [facility] Medical History (Updated 03/28/25 @ 16:[address] Imani Persaud MD) Cancer Back pain Shortness of breath on exertion Leg cramps History of stress test Primary leiomyosarcoma of pelvis Anemia due to chronic blood loss Menorrhagia Wears dentures High cholesterol Loss of consciousness Gastric reflux Smoker Cardiology follow-up encounter History of echocardiogram Cardiac murmur History of non-ST elevation myocardial infarction (NSTEMI) (06/2014) Essential (primary) hypertension Atherosclerosis of coronary artery without angina pectoris Kidney stones Surgical History History of cardiac catheterization Hx of oral surgery Hx laparoscopic cholecystectomy Hx of left cataract extraction History of hysterectomy Cataract extraction status of right eye Hx of tubal ligation History of coronary artery stent placement (03/31/21) Family History Father Kidney disease Aunt Cancer paternal Other Heart disease Social History household members: spouse housing: house Smoking Status: Current every day smoker tobacco type: cigarettes Tobacco: How many years used: 39 alcohol intake: never substance use type: does not use caffeine: Yes Type: coffee Number of servings: 1 and tea Number of servings: 2 ROS ROS Narrative C February 26, 2025; no change Intake Vital Signs 02/26/25 11:18 03/28/25 15:34 03/28/25 15:36 Height 5 ft 7 in 5 ft 7 in 5 ft 7 in Weight: 102.285 kg BMI 35.3 BP 111/77 Blood Pressure Location Lt brachial Position Sitting Respiration 18 Pulse 78 Pulse Source Monitor Temp 96.7 F L Temperature Source Temporal Artery Pulse Oximetry (%) 95 Oxygen Delivery Method room air Intake Is patient in pain?: No Allergies No Known Allergies Allergy (Verified 03/28/25 15:35) Medications ?Medication ?Instructions ?Recorded ?Confirmed ?Type aspirin 81 mg chewable tablet 81 mg PO DAILY@0800 hx o f mi 06/09/19 03/28/25 History atorvastatin 80 mg tablet 80 mg PO QHS cholesterol #90 tabs 11/29/23 03/28/25 Rx famotidine 20 mg tablet (Pepcid) 20 mg PO BID 11/29/23 03/28/25 History sertraline 50 mg tablet (Zoloft) 50 mg PO QHS 11/29/23 03/28/25 History Have you fallen in the past year?: No Central Venous Access Central Venous Access: No Exam Physical Exam Narrative ECOG 0 Const alert, oriented x3 and no apparent distress Coding Level of Care Code Off vis,est,level 5 Exam Problem Focused Diagnoses 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 Past medical history notable for status post hysterectomy, bilateral salpingectomy and right oophorectomy for fibroid uterus was excessive menstrual bleeding causing iron deficiency anemia in 2021. Transvaginal ultrasound suggested left ovarian enlargement. January 26, 2025 underwent exploratory laparotomy left oophorectomy and removal ofpelvic mass, omentectomy by Dr. Grady. 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 Left oophorectomy showed no significant pathologic changes, omentumshowed no evidence of malignancy and peritoneal washings showed no malignant cells. Was seen at [facility] sarcoma clinic by Dr. Cunningham in March 2025 who recommended standard adjuvant chemotherapy with gemcitabine Taxotere for 6 cycles followed by maintenance pazopanib plus letrozole indefinite/till progression. Of note her CA125 was not elevated. Chronic comorbid conditions: Obesity, dyslipidemia, coronary artery disease, hypertension and active smoker. Plan: Based on NCCN guideline and consultation with Drs. Grady and Octavio: 1-adjuvant systemic chemotherapy with gemcitabine and Taxotere for 6 cycles. Patient will be supported with antiemetics, steroids and primary prophylaxis against febrile neutropenia with growth factor. 2. Following adjuvant systemic chemotherapy maintenance pazopanib letrozole indefinite/till progression. 3. Schedule chemotherapy teaching session, referred for central venous access placement, request insurance authorization. 4. Main toxicities from systemic chemotherapy discussed. 5. Refer to urology for left renal pelvis calculus with mild hydronephrosis. Given history of recurrent kidney stones but has never seen a urologist before. Impression and plan discussed with patient and her . Follow-up with cycle 1. Imani Persaud MD Sack Department Supervisor, [facility] Divisions of Medical Oncology & Hematology Department of Internal Medicine [place] [phone] This note was generated using a voice recognition system software. Although itwas reviewed by the author prior to finalization, it may still contain incorrectwords, spelling, and punctuation that were not noted when reviewing prior to saving. If a clinically significant typo or inaccurately typed phrase is noted, please notify the author. Clinical Quality Measures Falls Risk Screening/Assistive Devices Have you fallen in the past year?: No 03/28/25 1615 karen VALDEZ> Date _ Imani Persaud MD Cosigner Signature: Date (if applicable) CC: Dr. David Fink MD ~ [facility]05-14-2025 Progress note Author Imani Persaud [facility] Note Date/Time March 28, 2025 4:15p m [facility] [address] [address] OFFICE VISIT Date of Service: 03/28/25 1532 MR#: [id number] Acct: [id number] Name: UZMA MCDONALD Rep #: [id number] : 1970 From: Imani fair MD Age/Sex: 54/F Location: [facility] [place] Status: Signed HPI Subjective Date of Service 03/28/25 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 The patient was seen in [facility] emergency room January 08, 2025 with urinary symptoms that proved to be due to a UTI which improved with a course of antibiotics. An incidental left pelvic mass was seen on CT scan. January 08, 2025 CT abdomen and pelvis: FINDINGS: Lung bases: Clear Liver: Diffuse fatty infiltration. Enlarged Gallbladder: Surgically absent. Spleen: Normal size. Pancreas: Unremarkable. Adrenals: Unremarkable. Kidneys: Left peripelvic fat stranding with 14 mm nonobstructive calculus. Nonobstructive calculi are also noted in the left kidney.. Bladder: Unremarkable. Reproductive Organs: Prior hysterectomy. Adnexal regions are unremarkable. Bowel: No bowel obstruction. Appendix: Normal. Lymph nodes: There is a heterogeneously enhancing mass in the left pelvis measuring 7.3 x 8.1 cm. No other corresponding lymphadenopathy is noted. Vasculature: Mild diffuse atherosclerotic calcifications are noted. Peritoneum / Retroperitoneum: No ascites. No free air. Bones: Unremarkable. IMPRESSION: 1. Heterogeneous left pelvic mass concerning for neoplasm 2. Left pyelonephritis with nonobstructive stone. Nonobstructive calculi also noted in the right kidney. 3. Hepatic steatosis and hepatomegaly January 12, 2025 transvaginal ultrasound: IMPRESSION: Status post hysterectomy and right oophorectomy. Heterogeneous enlargement of the left ovary with blood flow. This corresponds with the CT findings. January 26, 2025 patient underwent exploratory laparotomy, left oophorectomy, removal of pelvic mass, omentectomy. Pathology: A. Pelvic mass excision: High-grade sarcoma with myogenic differentiation favorleiomyosarcoma. B. Pelvic mass excision: High-grade sarcoma with myogenic differentiation, favor leiomyosarcoma. C. Omentum, omentectomy benign adipose tissue negative for malignancy. D. Ovary left oophorectomy: Ovary with no significant pathologic changes. Comment: Sections from the pelvic mass show a highly cellular spindled and focally epithelioid malignant neoplasm with marked cytologic atypia, brisk mitotic activity and tumor cell necrosis. IHC at [facility] positive for SMA, negative for desmin, STAT6, pancytokeratin, S100 and CD34. Additional IHC done at [facility] showed negative Desmin, negative Caldesmon, ER diffuse strong positive, ALK negative, p53 aberrant (strong diffuse), PTEN retained staining, RB1 loss ofstaining, HMB45 negative. Again the overall morphologic and IHC features consistent with a high- grade sarcoma with a diagnosis of leiomyosarcoma is favored. The site of origin of this tumor is difficult to determine but the presence of ER staining raises the possibility of m?llerian origin. January 26, 2025 peritoneal washings no malignant cells identified. March 26, 2025 chest abdomen and pelvis CT: IMPRESSION: 1. Few scattered less than 6 mm indeterminate pulmonary nodules. Otherwise, no evidence of metastatic disease in the thorax. 2. Status post hysterectomy and resection of previously noted mass. Small indeterminate soft tissue nodules noted within the anterior pelvic mesentery and hysterectomy bed. These may represent sequela of postoperative changes. However, peritoneal carcinomatosis can not be excluded. Attention on follow-up is recommended. 3. 18 mm left renal pelvis obstructing calculus with mild hydronephrosis. Multiple other nonobstructing calculi. 4. 3 mm left UVJ/posterior urinary bladder wall calculus. [facility] Medical History (Updated 03/28/25 @ 16:[address] Imani Persaud MD) Cancer Back pain Shortness of breath on exertion Leg cramps History of stress test Primary leiomyosarcoma of pelvis Anemia due to chronic blood loss Menorrhagia Wears dentures High cholesterol Loss of consciousness Gastric reflux Smoker Cardiology follow-up encounter History of echocardiogram Cardiac murmur History of non-ST elevation myocardial infarction (NSTEMI) (06/2014) Essential (primary) hypertension Atherosclerosis of coronary artery without angina pectoris Kidney stones Surgical History History of cardiac catheterization Hx of oral surgery Hx laparoscopic cholecystectomy Hx of left cataract extraction History of hysterectomy Cataract extraction status of right eye Hx of tubal ligation History of coronary artery stent placement (03/31/21) Family History Father Kidney disease Aunt Cancer paternal Other Heart disease Social History household members: spouse housing: house Smoking Status: Current every day smoker tobacco type: cigarettes Tobacco: How many years used: 39 alcohol intake: never substance use type: does not use caffeine: Yes Type: coffee Number of servings: 1 and tea Number of servings: 2 ROS ROS Narrative C February 26, 2025; no change Intake Vital Signs 02/26/25 11:18 03/28/25 15:34 03/28/25 15:36 Height 5 ft 7 in 5 ft 7 in 5 ft 7 in Weight: 102.285 kg BMI 35.3 BP 111/77 Blood Pressure Location Lt brachial Position Sitting Respiration 18 Pulse 78 Pulse Source Monitor Temp 96.7 F L Temperature Source Temporal Artery Pulse Oximetry (%) 95 Oxygen Delivery Method room air Intake Is patient in pain?: No Allergies No Known Allergies Allergy (Verified 03/28/25 15:35) Medications ?Medication ?Instructions ?Recorded ?Confirmed ?Type aspirin 81 mg chewable tablet 81 mg PO DAILY@0800 hx o f mi 06/09/19 03/28/25 History atorvastatin 80 mg tablet 80 mg PO QHS cholesterol #90 tabs 11/29/23 03/28/25 Rx famotidine 20 mg tablet (Pepcid) 20 mg PO BID 11/29/23 03/28/25 History sertraline 50 mg tablet (Zoloft) 50 mg PO QHS 11/29/23 03/28/25 History Have you fallen in the past year?: No Central Venous Access Central Venous Access: No Exam Physical Exam Narrative ECOG 0 Const alert, oriented x3 and no apparent distress Coding Level of Care Code Off vis,est,level 5 Exam Problem Focused Diagnoses 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 Past medical history notable for status post hysterectomy, bilateral salpingectomy and right oophorectomy for fibroid uterus was excessive menstrual bleeding causing iron deficiency anemia in 2021. Transvaginal ultrasound suggested left ovarian enlargement. January 26, 2025 underwent exploratory laparotomy left oophorectomy and removal ofpelvic mass, omentectomy by Dr. Grady. 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 Left oophorectomy showed no significant pathologic changes, omentum showed no evidence of malignancy and peritoneal washings showed no malignant cells. Was seen at [facility] sarcoma clinic by Dr. Cunningham in March 2025 who recommended standard adjuvant chemotherapy with gemcitabine Taxotere for 6 cycles followed by maintenance pazopanib plus letrozole indefinite/till progression. Of note her CA125 was not elevated. Chronic comorbid conditions: Obesity, dyslipidemia, coronary artery disease, hypertension and active smoker. Plan: Based on NCCN guideline and consultation with Drs. Grady and Octavio: 1-adjuvant systemic chemotherapy with gemcitabine and Taxotere for 6 cycles. Patient will be supported with antiemetics, steroids and primary prophylaxis against febrile neutropenia with growth factor. 2. Following adjuvant systemic chemotherapy maintenance pazopanib letrozole indefinite/till progression. 3. Schedule chemotherapy teaching session, referred for central venous access placement, request insurance authorization. 4. Main toxicities from systemic chemotherapy discussed. 5. Refer to urology for left renal pelvis calculus with mild hydronephrosis. Given history of recurrent kidney stones but has never seen a urologist before. Impression and plan discussed with patient and her . Follow-up with cycle 1. Imani Persaud MD Sack Department Supervisor, [facility] Divisions of Medical Oncology & Hematology Department of Internal Medicine [place] [phone] This note was generated using a voice recognition system software. Although itwas reviewed by the author prior to finalization, it may still contain incorrectwords, spelling, and punctuation that were not noted when reviewing prior to saving. If a clinically significant typo or inaccurately typed phrase is noted, please notify the author. Clinical Quality Measures Falls Risk Screening/Assistive Devices Have you fallen in the past year?: No 03/28/25 3872 <Electronically signed by Imani jones MD> Date _ Imani Persaud MD Cosigner Signature: Date (if applicable) CC: Dr. David Fink MD ~ [facility] [employer] [employer] Work Phone: [phone] NoteReceived is a request for second opinion consultation by Dr. Christopher Cunningham. [facility] slide review Preoperative Diagnosis: Multiple large fibroids, menorrhagia, chronic iron deficiency from chronic blood loss.[facility] Medical CenterComment on above: Performed By: #### SURGP #### [facility] (DEFAULT) [address] [place] [address] [id number] Radiology Diagnostic study note [facility] Imaging Services [address] [place] [address] CT Chest, Abd, Pel w/Contrast MR#: [id number] Acct: [id number] Name: UZMA MCDONALD Rep #: [id number] : 1970 F 54 From: Karen Estrada MD PCP: Dr. David Fink MD Status: REG C LI Study:CT Chest, Abd, Pel w/Contrast Date of E xam: 03/26/25 Exam# [id number] Ordering Dr: Imani Persaud MD PROCEDURE: CT CHEST, ABD, PEL W/CONTRAST 03/26/2025 REASON FOR EXAM: STAGING; IV AND ORAL CONTRAST TECHNIQUE: Chest, abdomen and pelvis CT with intravenous contrast. Coronal and Sagittal reconstruction series were provided. One or more dose reduction techniques were used (e.g., Automated exposure control, adjustment of the mA and/or kV according to patient size, use of iterative reconstruction technique. PATIENT PREPARATION: Per protocol ORAL CONTRAST TYPE: None. AMOUNT: mL CONTRAST: Omnipaque 350 VOLUME: 100mL no provided gauge IV COMPARISON: CT abdomen and pelvis 01/08/2025 FINDINGS: CT CHEST: Hardware: None Lymph nodes: No suspicious adenopathy. Heart and Vasculature: Normal cardiac size. Moderate coronary artery calcifications. Pulmonary arteries and thoracic aorta are unremarkable. Lungs and Airways: Central airways are patent without endobronchial lesions. Patchy opacities in the lingula and left lower lobe, compatible with atelectasis. 4 mm indeterminate left lower lobe nodule (series 6, image 73). Additional 4 mm right middle lobe nodule (series 6, image 65). Otherwise, no focal consolidation. No pneumothorax. No pleural effusion. Bones: No suspicious osseous lesions. Chest wall is unremarkable. 4 mm right thyroid lobe low-attenuation nodule. CT ABDOMEN/PELVIS: Liver: Mild hepatic steatosis. No focal lesion. Gallbladder: No ductal dilation. Status post cholecystectomy. Spleen: Splenomegaly, craniocaudal length 15.1 cm. No focal lesion. Pancreas: Normal size without evidence of mass surrounding inflammation or ductal dilation. Adrenals: Unremarkable Kidneys: 18 mm left renal pelvis obstructing calculus with mild hydronephrosis. Several other bilateral nonobstructing calculi. Homogeneous enhancement. No suspicious mass Bladder: 3 mm calculus at the left UVJ/posterior urinary bladder wall. Reproductive Organs: Status post hysterectomy and resection of the previously noted pelvic mass.. Soft tissue nodules within the hysterectomy bed with mild enhancement (series 604 images [id number]). The larger ofthe nodule measures 12 mm. Bowel: Stomach is unremarkable. No bowel dilation or wall thickening. Colonic diverticulosis without diverticulitis. Moderate colonic stool. Contrast is noted throughout the small bowel. Appendix: Normal appendix. Lymph nodes: Unremarkable. Vasculature: Mild diffuse atherosclerotic calcifications are noted. Peritoneum / Retroperitoneum: 14 mm soft tissue lesion left anterior pelvis (series 3 image 90 Bones: No suspicious osseous lesions. Soft tissue: Skin thickening anterior pelvic wall, from recent surgery. CT/CT Chest, Abd, Pel w/Contrast IMPRESSION: 1. Few scattered less than 6 mm indeterminate pulmonary nodules. Otherwise, no evidence of metastatic disease in the thorax. 2. Status post hysterectomy and resection of previously noted mass. Small indeterminate soft tissuenodules noted within the anterior pelvic mesentery and hysterectomy bed. These may represent sequela of postoperative changes. However, peritoneal carcinomatosis can not be excluded. Attention on follow-up is recommended. 3. 18 mm left renal pelvis obstructing calculus with mild hydronephrosis. Multiple other nonobstructing calculi. 4. 3 mm left UVJ/posterior urinary bladder wall calculus. Reading Location: [facility] CC: Dr. Imani Persaud MD; Dr. David Fink MD ~ Plant Control Aide: Signed [facility]05-12-2025 NoteReceived is a request for second opinion consultation by Dr. Christopher Cunningham. OS slide review Clinical Information: Intra-abdominal and pelvic swelling, mass and lump, unspecified site - R19.00 [ICD-10-CM].[facility] CenterComment on above:Performed By: #### SURGP #### [facility] (DEFAULT) [address] [id number] History of Present illness Narrative* Kim Craven MD, PhD - 03/21/2025 1:00 PM EDT Images from the original note were not included. INITIAL VISIT - [facility] History of Present Illness Uzma Mcdonald is a 54 y.o. female who presents as a referral from Dr. Imani Hurtado (local med/onc) for consideration of treatment options for recently diagnosed leiomyosarcoma of the pelvis. In late 1989, after the of her last child (who is 28 years old), she developed heavy periods and was told this was due to fibroids. She was offered a hysterectomy for heavy menstrual periods [id number] but this was not covered by insurance. In 2020, she had sudden worsening of heavy menstrual periods (significant bleeding for a few days requiring ED visit and transfusion). While hysterectomy was recommended in fall 2020, she waited until insurance kicked in spring 2021 for surgery. She was unsure if she was nearing menopause at time of surgery due to irregular / heavy bleeding for years chronicity. After her uterus was removed (was told it was very large with significant fibroids at time of removal), she did not have abdominal discomfort or bloating. In the first week of December she presented to urgent care with suprapubic tenderness, urgency, frequency, dysuria. These symptoms were not present in weeks prior. Antibiotics were prescribed but didnot help symptoms. As well, she developed lower left back pain concerning to her for kidneys stones. She re- presented to the ED and a CT found a 8.1 cm complex left adnexal mass subsequently. Follow up pelvic ultrasound with 10.5 cm complex left adnexal mass. She was seen by rn hemodialysis charge onc on 01/17/25 with exploratory lap on 01/26/25 with resection tumor (delivered to pathology a 2 tumors: 10.5*8*5cm; 9.5*6*3cm; surgery operative note stated The mass did fracture with resection however, the entire mass was resected) and left oophorectomy with omentectomy. Pathology was consistent with high grade leiomyosarcoma with myogenic differentiation, ER positive. I cannot see pathology of prior hysterectomy but patient was told it was reviewed (small sample available) and they did not see evidence of cancer. After surgery patient has been without symptoms and is back to baseline activities -- doing all chores and active at [employer] job at [employer]. Called Dr Persaud (local hem/onc) sent to our clinic to see if we agree with surgery team recommendation of gemzar/taxotere for leiomyosarcoma adjuvant treatment. Patient plans to receive treatment locally. Treatment History Surgery 01/26/25 tumor removal (fracturing during resection) with left oophorectomy with omentectomy NGS TESTING - can not see report or order for NGS testing PMHx Past Medical History: Diagnosis Date Coronary artery disease of [place] heart with stable angina pectoris 07/27/2022 Heart murmur 05/27/2022 Hyperglycemia 07/28/2022 Hyperlipidemia, mixed 07/27/2022 Pelvic mass 01/26/2025 2 stents (2013, 2018) - does not know vessel of stents Anxiety GERD Past Surgical History: Procedure Laterality Date CHOLECYSTECTOMY CORONARY STENT PLACEMENT HYSTERECTOMY LAPAROTOMY EXPLORATORY resect pelvic mass, left oophorectomy, pelvic washings, omentectomy REMOVAL CATARACT (PEM) Bilateral TUBAL LIGATION Social History Socioeconomic History Marital status: Spouse name: Not on file Number of children: Not on file Years of education: Not on file Highest education level: Not on file Occupational History Not on file Tobacco Use Smoking status: Not on file Smokeless tobacco: Not on file Substance and Sexual Activity Alcohol use: Not on file Drug use: Not on file Sexual activity: Not on file Other Topics Concern Not on file Social History Narrative Not on file Social Drivers of Health Financial Resource Strain: Low Risk (01/26/2025) Received from [facility] Overall Financial Resource Strain (CARDIA) Difficulty of Paying Living Expenses: Not hard at all Food Insecurity: No Food Insecurity (01/26/2025) Received from [facility] Hunger Vital Sign Worried About Running Out of Food in the Last Year: Never true Ran Out of Food in the Last Year: Never true Transportation Needs: No Transportation Needs (01/26/2025) Received from [facility] PRAPARE - Transportation Lack of Transportation (Medical): No Lack of Transportation (Non-Medical): No Physical Activity: Inactive (01/26/2025) Received from [facility] Exercise Vital Sign Days of Exercise per Week: 0 days Minutes of Exercise per Session: 0 min Stress: Stress Concern Present (01/24/2023) Received from [facility] Occup[facility] - Occupational Stress Questionnaire Feeling of Stress : Rather much Social Connections: Moderately Isolated (01/24/2023) Received from [facility] Social Connection and Isolation Panel [NHANES] Frequency of Communication with Friends and Family: Three times a week Frequency of Social Gatherings with Friends and Family: Never Attends Holiness Services: Never Active Member of Clubs or Organizations: No Attends Club or Organization Meetings: Not on file Marital Status: Personal Safety: Not At Risk (01/26/2025) Received from [facility] Humiliation, Afraid, Rape, and Kick questionnaire Fear of Current or Ex-Partner: No Emotionally Abused: No Physically Abused: No Sexually Abused: No Housing Stability: Unknown (01/26/2025) Received from [facility] Housing Stability Vital Sign Unable to Pay for Housing in the Last Year: No Number of Times Moved in the Last Year: Not on file Homeless in the Last Year: No 39 pack year smoking history: smoking since 15 years old at 1 pack per day, recetnly cut back to 0.5 packs per day Rare alcohol use now, never heavy use in past Marijuana remote use 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 Children 35,33,29,28 years old - no cancer history Half brother - no cancer history Parents - no cancer history Maternal grandparents - no cancer history Parental grandparents - unknown as father is adopted Current Medications: Current Outpatient Medications Medication Sig atorvastatin 80 MG tablet Take 1 tablet by mouth daily. nystatin [id number] UNIT/GM Cream Apply topically Twice daily. Sertraline 50 MG tablet Take 1 tablet by mouth daily. Aspirin [address] tablet Take 1 tablet by mouth daily. Clopidogrel 75 MG tablet Take 1 tablet by mouth daily. faMOTIdine 20 MG tablet Take 1 tablet by mouth Twice daily. Allergies: Patient has no allergy information on record. Review of Systems Constitutional: Negative for severe fatigue,fever,chills. Skin:Negative for rash, itching and skin lesions HENT: Negative for hearing disorders, tinnitus Eyes: No eye pain. No blurred vision or diplopia. Cardiovascular: Negative for chest pain, dyspnea on exertion, orthopnea. Respiratory: Negative for cough, hemoptysis, sputum production. Gastrointestinal: Negative for heartburn, nausea, vomiting, abdominal pain. Negative for diarrhea, constipation Genitourinary: Negative for dysuria, urgency, frequency, hematuria Musculoskeletal: Negative for muscle pain Extremities: Negative leg swelling . Negative for extremity weakness. Neurological: Negative for dizziness headaches Psychiatric; Negative for depression Lymph/Heme:Negative for easily bruises / bleeds. Negative for lymph node swelling. Endocrine: Negative for hot flashes and sweats Physical Examination ECOG performance status: 0 There were no vitals taken for this visit. General Appearance:Alert and oriented x3, in no acute distress. HEENT : Head atraumatic,normocephalic.Pupils equal, round. No scleral icterus. Mucous membranes moist, no lesions. Neck: Supple Lungs: Clear to auscultation bilaterally. Normal respiratory effort. Cardiac:Normal S1, S2 . Rate and rhythm regular. No murmur, gallop or rub GI: Abdomen is soft, nontender, nondistended, positive bowel sounds. Extremities: No cyanosis, clubbing or edema. Extremities are atraumatic. Neuro: Speech is clear and appropriate. Affect is appropriate. Gait and coordination are within normal limits. Musculoskeletal:No joint inflammation or swelling. Psych: Pleasant affect.No sign of agitation . Skin: No rash,excessive bruising,petechiae. No hand foot symptoms. Pathology: 01/26/2025 Final Diagnosis A. PELVIS, MASS, EXCISION: - HIGH-GRADE SARCOMA WITH MYOGENIC DIFFERENTIATION, FAVOR LEIOMYOSARCOMA: SEE COMMENT. B. PELVIS, MASS #2, EXCISION: - HIGH-GRADE SARCOMA WITH MYOGENIC DIFFERENTIATION, FAVOR LEIOMYOSARCOMA: SEE COMMENT. C. OMENTUM, OMENTECTOMY: - BENIGN ADIPOSE TISSUE, NEGATIVE FOR MALIGNANCY D. OVARY, LEFT, OOPHORECTOMY: - OVARY WITH NO SIGNIFICANT PATHOLOGIC CHANGES Comment: Given the uncertain origin of this malignancy, an attempt will be made to retrieve the patient's prior hysterectomy pathology slides to review with the synoptic be reported in addendum. Thiscase was sent to the [facility] with the above diagnosis for parts A and B rendered by Dr. Pierce. Below is Dr. Pierce's comment. 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 Immunochemical stains performed by [facility] and submitted for review show that the tumor cells are positive for SMA and negative for desmin, STAT6, pancytokeratin, S100 and CD34. Immunochemical stains were performed at the [facility] with the following results: - Desmin: Negative - H Caldesmon: Negative - ER: Diffuse strong positive - ALK: Negative - P53: Aberrant (strong diffuse) - PTEN: Retained staining - RB1: Loss of staining - HMB45: Negative The overall morphologic and immunophenotypic features are those of a high-grade sarcoma and a diagnosis of a leiomyosarcoma is favored. Per report, the patient has a history of a supracervical hysterectomy with right salpingo-oophorectomy, but further details are not available to us. Site of originof the tumor in the current specimen is difficult to determine from this material, but the presence of the ER stain raises the possibility of a m llerian origin. Clinical radiographic correlation is required. Selected slides reviewed with gynecologic pathology consensus conference on 02/13/[address] Rahman, Filiberto and Williams agree with the diagnosis. LABS: No results found for: WBC, WBCCOUNT, WBCFETAL, HGB, HCT, PLATELET, MCV No results found for: SODIUM, POTASSIUM, CHLORIDE, CO2, BUN, CREATSERUM, GLUCOSE No results found for: ALT, TRANSFERASEA, AST, GGT, GAMMAGT, ALKPHOS, BILITOTAL, BILIDIRECT Imaging: Pertinent available radiologic studies were reviewed. Transpelvic US 01/12/2025 CT Abdomen/Pelvis 01/08/2025 Of note, mass measured 7.3 x 8.1 cm. Assessment: Uzma Mcdonald is a 54 y.o. female who presents with presumed stage IV high grade leiomyosarcomawith myogenic differentiation, ER positive as history of enlarged uterus at time of hysterectomy and ER positive concerning for mullerian / uterine primary. Recommendations below are provided with patient goal to receive care locally and return PRN/ Q yearly follow up: - Given that tumor was removed in fragments and presumed stage IV (tumor found outside uterus / female reproductive organ that was likely primary and removed in 2021), we recommend adjuvant chemotherapy and maintenance treatment indefinitely - we agree with adjuvant selection of gem / tax. We recommend Q3 week cycles (gem Day 1 and 8; tax Day 8) for a total of 6 cycles. - we recommend indefinite maintenance after adjuvant with pazopanib + letrozole - our pharmacy team provided literature on above agents - RTC in 1 year, sooner if questions - We will have [facility] review slides [facility]LEX ([facility], 05/28/22) and tumorremoval ex lap ([facility], 02/08/25) - We recommend local provider add Tempus XT, xM, NeXT to tumor testing - We agree with CT chest imaging for full staging - We recommended ordering a CT A/P just prior to adjuvant treatment toward establishing a post surgical baseline staging scan. This will allow findings after adjuvant chemo to be contextualize to just prior to adjuvant chemotherapy treatment / post-surgical baseline. Follow up RTC in 1 year, sooner if questions or concerns Patient to continue to follow up with rn hemodialysis charge onc, local oncology, cardiology, and primary care physician Kim Craven MD, PhD Hem / Onc Fellow * Christopher Cunningham MD - 03/21/2025 1:00 PM EDT Patient seen independently of DELROY I have seen and examined this patient independently. I have reviewed the patient's vital signs, nursing notes, review of systems, medications, physical exam findings, laboratory tests, pertinent radiographic imaging, and problem list. I provided a substantive portion of the care for this patient. Ipersonally performed all aspects of the medical decision making for this encounter. I have reviewedand verified this documentation, and it accurately reflects our care. I also have spoken with the patient and answered all the patient's questions to the best of my ability. Uzma Mcdonald is a 54 y.o. female who presents for a recent diagnosis of LMS (Mullerian origin), referred by Dr. Persaud for a second opinion. She reports a long-standing history of menorrhagia. She ultimately underwent hysterectomy in 2021 for multiple severe episodes of bleeding ([facility], Dr. May Saucedo); pathology demonstrated multiple leiomyomas. No malignancy was reported. She was evaluated in December 2024 for new L flank/back pain. CT scans on 01/08/2025 demonstrated a 7.3 x 6.1 cm L pelvic mass, concerning for malignancy. On 01/26/2025, she underwent exploratory laparotomy, resection of 2 pelvic masses, measuring 10.5 cm (tumor #1) and 9.5 cm (tumor #2), left oophorectomy, omentectomy (Dr. Grady, [place], [place], [place]). 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 Tumor #2 was fragmented. On exam, she has no abdominal distention. Respirations are clear and unlabored. I [facility] at [facility] to revisit her initial ALEX, from [facility], 05/28/2022 as well as the Ex lap, from [facility], 02/08/2025. I also recommended NGS testing ([employer] xT, [employer] NeXT), including HRD status on her resection specimen, which she will get with Dr. Hurtado.In light of multifocal peritoneal recurrence, with fragmentation of one of the tumors on her most recent surgical resection, we discussed that she is extremely high risk for recurrence. I recommendedproceeding with adjuvant therapy with gemcitabine 900 mg/m2 d1,8 + docetaxel 75 mg/m2 d8 q21d x 6 cycles, followed by indefinite maintenance therapy with pazopanib + letrozole. Additionally, I recommended new baseline CT scans of the chest, abdomen/pelvis prior to moving forward with chemo. She will be treated locally by Dr. Hurtado, and will tentatively schedule 1 year follow-up, sooner as needed. Thank you for the opportunity to participate in the care of Uzma Mcdonald. Christopher Cunningham MD Attending Physician, Medical Oncology * Kim Dela Cruz RN - 03/21/2025 1:00 PM EDT Signed YANETH sent to Intake coordinators to request pathology slides for Pathology review ([facility]): ALEX, from [facility], 05/28/2022 Ex lap, from [facility], 02/08/2025 [facility] Instructions* Patient Instructions* Kim Dela Cruz RN - 03/21/2025 1:00 PM EDT Starting on May 14, 2025, our clinic [facility] [address] [place] [address], 4th floor. You may visit [email or web address] for additional information and driving directions. Garage and flow coordinator parking are available. Feel free to call our office with any questions. [facility] Dr. Christopher Cunningham, Dr. Mateo Bear, Dr. Davide Davis, and Dr. Usha Mueller PA-C, Leo Pettit RN, RN, Júnior Minor, RN, Era Caraballo, RN, Shawna Dela Cruz, RAMONE [address] 5th [address] [place] [address] Supervisor Dental Laboratory: Jazmine MCELROY [phone] Patient Care Utilization Specialist RN: Pancho Urias [phone] + Susy Estrella [phone] Please allow 10-14 business days for the completion of FMLA/Disability paperwork. Please send refill requests through your [employer] or call the office at least 48 hours prior to needing the refill. If the medication needs a prior authorization it may take longer than expected for the prescriptionto be available at the pharmacy. When you need a refill of your chemotherapy pills, please call the pharmacy for the refill. If a new prescription is needed, it may take a couple of days longer since it has to be written by the oncologist that is treating you. Please do not send urgent requests through your [employer] since these messages are not monitored as frequently throughout the day as phone calls. Results of imaging and pathology will be discussed at your follow up office visit with your provider. Our office does not give imaging or pathology results over the phone. If you have questions regarding the approval of imaging that is scheduled, please call [facility] pre-certification line at [phone] to obtain that information. We know your time is valuable, but we would greatly appreciate it if you would please complete yourPatient Satisfaction Survey and let us know how we are doing. Your feedback will help us to make positive changes to improve clinical outcomes for you and future patients alike. For any questions or concerns, or to share your recent clinic experience please call our Patient Experience General Line . [facility] Telephone encounter Note* Telephone Encounter - Darvin Grady MD - 02/16/2025 11:13 AM EDT Pt called with path, to see Med Onc . Rec chemo. To see after chemo to discuss long-term surveillance [facility] Phone: 1(720) 515-937204-04-2025 Miscellaneous Notes* Telephone Encounter - Darvin Grady MD - 02/16/2025 11:13 AM EDT Pt called with path, to see Med Onc . Rec chemo. To see after chemo to discuss terminal worker surveillance documented in this [facility]04-03-2025 Telephone encounter Note* Telephone Encounter - Daquandavid Boyce - 02/15/2025 11:06 AM EDT Faxed to Dr. Persaud at [phone] via [employer]. Confirmation scanned within media [facility] [id number] Telephone encounter Note* Telephone Encounter - Daquan Boyce - 02/15/2025 11:06 AM EDT ----- Message from Darvin Grady MD sent at 02/14/2025 3:41 PM EDT ----- Gabbi fax to Dr Lopez at [facility] ----- Message ----- From: Valerie Johnson Sent: 01/31/2025 1:18 PM EDT To: Darvin Grady MD [facility] [id number] Miscellaneous Notes* Telephone Encounter - Daquan Boyce - 02/15/2025 11:06 AM EDT Faxed to Dr. Persaud at [phone] via [employer]. Confirmation scanned within media * Telephone Encounter - Daquan Boyce - 02/15/2025 11:06 AM EDT ----- Message from Darvin Grady MD sent at 02/14/2025 3:41 PM EDT ----- Plfartun fax to Dr Lopez at [facility] ----- Message ----- From: Valerie Johnson Sent: 01/31/2025 1:18 PM EDT To: Darvin Grady MD documented in this encounterSLicking Memorial [id number] Telephone encounter Note* Telephone Encounter - SREEDHAR Klein CNP - 02/14/2025 3:[address] Grady request, Called Dr Persaud's office at [facility] and provided recommendation for gemzar/taxotere for leiomyosarcoma. Dr Grady requested they send patient back to see him after chemo is completed. He does not need to see her before then. Called patient and informed her ofsame. She verbalized understanding and agreement with plan. [id number] Miscellaneous Notes* Telephone Encounter - SREEDHAR Klein CNP - 02/14/2025 3:[address] Grady request, Called Dr Persaud's office at [facility] and provided recommendation for gemzar/taxotere for leiomyosarcoma. Dr Grady requested they send patient back to see him after chemo is completed. He does not need to see her before then. Called patient and informed her ofsame. She verbalized understanding and agreement with plan. documented in this [facility]04-02-2025 History of Present illness Narrative* Ashok SREEDHAR Aguilar CNP - 02/14/2025 2:00 PM EDT GYNECOLOGIC ONCOLOGY - FOLLOW-UP VISIT CHIEF COMPLAINT/PUPROSE OF VISIT: Uzma Mcdonald is a 54 y.o. female 2 weeks s/p Exploratory laparotomy, left oophorectomy, removal of pelvic mass, omentectomy on 01/26/25. Pathology returned with: Final Diagnosis A. PELVIS, MASS, EXCISION: - HIGH-GRADE SARCOMA WITH MYOGENIC DIFFERENTIATION, FAVOR LEIOMYOSARCOMA: SEE COMMENT. B. PELVIS, MASS #2, EXCISION: - HIGH-GRADE SARCOMA WITH MYOGENIC DIFFERENTIATION, FAVOR LEIOMYOSARCOMA: SEE COMMENT. C. OMENTUM, OMENTECTOMY: - BENIGN ADIPOSE TISSUE, NEGATIVE FOR MALIGNANCY D. OVARY, LEFT, OOPHORECTOMY: - OVARY WITH NO SIGNIFICANT PATHOLOGIC CHANGES Comment: Given the uncertain origin of this malignancy, an attempt will be made to retrieve the patient's prior hysterectomy pathology slides to review with the synoptic be reported in addendum. This[facility] with the above diagnosis for parts A and B rendered by Dr. Pierce. Below is Dr. Pierce's comment. 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 Immunochemical stains performed by [facility]oven[facility] and submitted for review show that the tumor cells are positive for SMA and negative for desmin, STAT6, pancytokeratin, S100 and CD34. Immunochemical stains were performed at the [facility] with the following results: - Desmin: Negative - H Caldesmon: Negative - ER: Diffuse strong positive - ALK: Negative - P53: Aberrant (strong diffuse) - PTEN: Retained staining - RB1: Loss of staining - HMB45: Negative The overall morphologic and immunophenotypic features are those of a high-grade sarcoma and a diagnosis of a leiomyosarcoma is favored. Per report, the patient has a history of a supracervical hysterectomy with right salpingo-oophorectomy, but further details are not available to us. Site of originof the tumor in the current specimen is difficult to determine from this material, but the presence of the ER stain raises the possibility of a m llerian origin. Clinical radiographic correlation is required. Selected slides reviewed with gynecologic pathology consensus conference on 02/13/2025 and Filiberto Martinez and Williams agree with the diagnosis. HISTORY OF PRESENT ILLNESS: Uzma Mcdonald is a very pleasant 54 y.o. female with the following oncologic history: Oncology History No history exists. INTERVAL HISTORY: Overall doing well since surgery. She is not having any pain. Feels good overall. Denies signifcant pain, bleeding. Tolerating regular diet, denies N/V. Denies issues with BM or urination. ECOG PS 0 ROS: 12 point review of systems performed, pertinent items are noted in HPI; all other review of systemswere negative. MEDICATIONS: Current Outpatient Medications Medication Sig Dispense Refill aspirin 81 MG EC tablet Take 81 mg by mouth daily. atorvastatin (Lipitor) 40 MG tablet Take 40 mg by mouth daily. clopidogrel (Plavix) 75 MG tablet Take 75 mg by mouth daily. docusate sodium (Colace) 100 MG capsule Take 1 capsule (100 mg) by mouth 2 times daily. 60 capsule 0 famotidine (Pepcid) 20 MG tablet Take 20 mg by mouth 2 times daily. losartan (Cozaar) 25 MG tablet Take 25 mg by mouth daily. metoprolol tartrate (Lopressor) 25 MG tablet Take 25 mg by mouth twice a day. sertraline (Zoloft) 50 MG tablet Take 50 mg by mouth daily. No current facility-administered medications for this visit. VITAL SIGNS: There were no vitals taken for this visit. No data recorded PHYSICAL EXAM: General: Alert and oriented. in no acute distress. Able to ambulate on and off the exam table without difficulty. Heart: Regular rate Lungs: Easy respirations Abdomen: Soft, Non-tender, non-distended. Skin: Yeast rash under abdominal fold just above mons with some areas of denuded skin. Well healed surgical incision without erythema, induration, or drainage. Extremities: No cyanosis, clubbing, or edema Mental: Mood and affect appropriate for situation Pelvis: Def DIAGNOSTICS: I reviewed the imaging studies and agree with the interpretation as recorded. I reviewed the pertinent laboratory and diagnostic data. ASSESSMENT/PLAN: S/P Xlap left oophorectomy, removal of pelvic mass, omentectomy: - Doing well post-op - Reviewed final pathology and plan for video visit with Dr Grady on Wednesday to discuss treatment plan - pt would like to get chemo at [facility] infusion center near her house - Discussed some chemo basics (infection prevention) - Diflucan and nystatin cream sent to pt's pharmacy for rash, educated pt on use - Ok to resume normal activities, advised her to ease back into things I explained diagnosis and treatment plan; patient expressed understanding and was in agreement withthe plan. SREEDHAR Freitas CNP I personally spent over half of a total 30 minutes face to face with the patient in counseling and discussion and/or coordination of care as described above. documented in this [facility]04-02-2025 Telephone encounter Note* Telephone Encounter - Darvin Grady MD - 02/14/2025 10:35 AM EDT Mail box full [place] Phone: 1(780) 729-389104-02-2025 Miscellaneous Notes* Telephone Encounter - Darvin Grady MD - 02/14/2025 10:35 AM EDT Mail box full documented in this [facility]03-15-2025 NoteSinus rhythm Low voltage, precordial leads Poor R wave progression Electronically Signed On 01-27-2025 11:41:44 EDT by Linus Maria EPIPHDONTA 01-27-2025 NoteSinus rhythm Low voltage, precordial leads Poor R wave progression Electronically Signed On 01-27-2025 11:41:44 EDT by Linus Maria EPIPHDONTA 01-27-2025 NoteIMPRESSION: Sinus rhythm Low voltage, precordial leads Poor R wave progression Electronically Signed On 01-27-2025 11:41:44 EDT by [facility] [id number] NoteGyn ONC Discharge Summary Patient Name: Uzma Mcdonald Patient : 1970 Primary Care Physician: David Fink MD Admit Date: 01/26/2025 Attending Provider: Darvin Grady MD Principal Diagnosis: Postoperative state, s/p exploratory laparotomy Other Diagnosis: Intra-abdominal and pelvic swelling, mass and lump, unspecified site [R19.00] Pelvic mass [R19.00] Patient Active Problem List Diagnosis Pelvic mass Surgical Operations & Procedures: Exploratory laparotomy, left oophorectomy, removal of pelvic mass, omentectomy Consultations: None Pertinent Findings & Procedures: Uzma Mcdonald is a 54 y.o. female , admitted for routine postoperative care after undergoing the above procedure on 01/27/2025. Frozen pathology was notable for spindle cell etiology. Patient met all postoperative milestones. Barragan catheter was removed on POD#1. Hgb on POD#1 was 9.4. Patient requesting discharge on POD#1 since she was feeling well and meeting post op milestones. Hospital course normal, and patient was discharged home on 01/27/25. Follow up on 02/09/2025 with Kenan Herbert. Discharge instructions reviewed and questions answered. Course of patient: normal Discharge to: Home Wound Care: keep wound clean and dry Recommendations on Discharge: Medications: Medication List START taking these medications acetaminophen 325 MG tablet Commonly known as: Tylenol Take 2 tablets (650 mg) by mouth every 6 hours as needed for mild pain (1-3) for up to 10 days. docusate sodium 100 MG capsule Commonly known as: Colace Take 1 capsule (100 mg) by mouth 2 times daily. oxyCODONE 5 MG immediate release tablet Commonly known as: Roxicodone Take 1 tablet (5 mg) by mouth every 6 hours as needed for severe pain (7-10) for up to 5 days. simethicone 80 MG chewable tablet Commonly known as: Mylicon Chew 1 tablet (80 mg) every 6 hours as needed for flatulence for up to 10 days. CONTINUE taking these medications aspirin 81 MG EC tablet atorvastatin 40 MG tablet Commonly known as: Lipitor clopidogrel 75 MG tablet Commonly known as: Plavix famotidine 20 MG tablet Commonly known as: Pepcid losartan 25 MG tablet Commonly known as: Cozaar metoprolol tartrate 25 MG tablet Commonly known as: Lopressor sertraline 50 MG tablet Commonly known as: Zoloft Where to Get Your Medications These medications were sent to [facility] [address] [place], [place] [address] [address] Hours: Wednesday to Wednesday 10 am to 6 pm acetaminophen 325 MG tablet docusate sodium 100 MG capsule oxyCODONE 5 MG immediate release tablet simethicone 80 MG chewable tablet Activity: pelvic rest for at least 6 weeks (until cleared by physician), no heavy lifting greater than 15lbs, no driving while on analgesics Diet: General Follow up: 02/09/2025 with Kenan Herbert Condition on discharge: good and stable Discharge Date: 01/27/25 Comments: Home care, Follow-up care, restrictions reviewed. Reyna Mcgill DO 01/27/2025, 9:51 [facility]03-15-2025 Hospital course Narrative* Reyna Mcgill DO - 01/27/2025 9:50 AM EDT Images from the original note were not included. Flatwork Catcher ONC Discharge Summary Patient Name: Uzma Mcdonald Patient : 1970 Primary Care Physician: David Fink MD Admit Date: 01/26/2025 Attending Provider: Darvin Grady MD Principal Diagnosis: Postoperative state, s/p exploratory laparotomy Other Diagnosis: Intra-abdominal and pelvic swelling, mass and lump, unspecified site [R19.00] Pelvic mass [R19.00] Patient Active Problem List Diagnosis Pelvic mass Surgical Operations & Procedures: Exploratory laparotomy, left oophorectomy, removal of pelvic mass, omentectomy Consultations: None Pertinent Findings & Procedures: Uzma Mcdonald is a 54 y.o. female , admitted for routine postoperative care after undergoing the above procedure on 01/27/2025. Frozen pathology was notable for spindle cell etiology. Patient met all postoperative milestones. Barragan catheter was removed on POD#1. Hgb on POD#1 was 9.4. Patientrequesting discharge on POD#1 since she was feeling well and meeting post op milestones. Hospital course normal, and patient was discharged home on 01/27/25. Follow up on 02/09/2025 with Kenan Herbert. Discharge instructions reviewed and questions answered. Course of patient: normal Discharge to: Home Wound Care: keep wound clean and dry Recommendations on Discharge: Medications: Medication List START taking these medications acetaminophen 325 MG tablet Commonly known as: Tylenol Take 2 tablets (650 mg) by mouth every 6 hours as needed for mild pain (1-3) for up to 10 days. docusate sodium 100 MG capsule Commonly known as: Colace Take 1 capsule (100 mg) by mouth 2 times daily. oxyCODONE 5 MG immediate release tablet Commonly known as: Roxicodone Take 1 tablet (5 mg) by mouth every 6 hours as needed for severe pain (7-10) for up to 5 days. simethicone 80 MG chewable tablet Commonly known as: Mylicon Chew 1 tablet (80 mg) every 6 hours as needed for flatulence for up to 10 days. CONTINUE taking these medications aspirin 81 MG EC tablet atorvastatin 40 MG tablet Commonly known as: Lipitor clopidogrel 75 MG tablet Commonly known as: Plavix famotidine 20 MG tablet Commonly known as: Pepcid losartan 25 MG tablet Commonly known as: Cozaar metoprolol tartrate 25 MG tablet Commonly known as: Lopressor sertraline 50 MG tablet Commonly known as: Zoloft Where to Get Your Medications These medications were sent to [facility] [address] [place] [address] Hours: Wednesday to Wednesday 10 am to 6 pm acetaminophen 325 MG tablet docusate sodium 100 MG capsule oxyCODONE 5 MG immediate release tablet simethicone 80 MG chewable tablet Activity: pelvic rest for at least 6 weeks (until cleared by physician), no heavy lifting greater than 15lbs, no driving while on analgesics Diet: General Follow up: 02/09/2025 with Kenan Herbert Condition on discharge: good and stable Discharge Date: 01/27/25 Comments: Home care, Follow-up care, restrictions reviewed. Reyna Mcgill DO 01/27/2025, 9:51 AM Cosigned by Sumaya Marroquin MD at 01/27/2025 6:08 PM EDT documented in this [facility]03-15-2025 History of Present illness Narrative* Reyna Mcgill DO - 01/27/2025 6:09 AM EDT Images from the original note were not included. SPACE CONTROL SUPERVISOR Progress Note Please page the [facility] SPACE CONTROL SUPERVISOR ONC Call RES group via Secure Chat for any questions or concerns. Date: 01/27/2025 Time: 6:09 AM Uzma Mcdonald 54 y.o. female , POD#1 s/p ExLap,Removal of Pelvic mass, omentectomy, LSO Patient seen and examined. Pain is controlled. Patient is tolerating oral intake. Barragan was removedthis AM, awaiting void. She denies any vaginal bleeding. She is passing flatus. She denies Fever/Chills, Chest Pain, SOB, N/V. Vitals: Vitals: 01/26/25 2145 01/26/25 2158 01/27/25 0105 01/27/25 0546 BP: 113/50 (!) 104/47 104/56 105/56 BP Location: Right arm Right arm Right arm Patient Position: Lying Lying Lying Pulse: 59 58 54 57 Resp: 16 16 16 Temp: 36.2 C (97.1 F) (!) 35.9 C (96.6 F) 36.3 C (97.3 F) TempSrc: Temporal Temporal Temporal SpO2: 94% 98% 94% Weight: Height: Intake/Output: Current Shift: I/O this shift: In: 240 [P.O.:240] Out: 450 [Urine:450] Physical Exam: Gen: NAD, alert and cooperative HEENT: Normocephalic, atraumatic, EOMI, MMM Resp: normal effort Abd: soft, NT/ND, no rebound, no guarding. Incisions: Bandage midline vertical C/D/I Ext: No LE edema, no calf tenderness or swelling Medications: Current Facility-Administered Medications: acetaminophen (Tylenol) tablet 1,000 mg, 1,000 mg, Oral, q8h, Wendie Thompson DO, 1,000 mg at 01/27/25 0509 aspirin EC tablet 81 mg, 81 mg, Oral, Daily, Wendie Thompson DO [Held by provider] clopidogrel (Plavix) tablet 75 mg, 75 mg, Oral, Daily, Wendie Thompson DO famotidine (Pepcid) tablet 20 mg, 20 mg, Oral, BID, Wendie Thompson, , 20 mg at 01/26/252155 losartan (Cozaar) tablet 25 mg, 25 mg, Oral, Daily, Wendie Thompson, metoprolol tartrate (Lopressor) tablet 25 mg, 25 mg, Oral, BID, Wendie Thompson, naloxone (Narcan) injection 0.4 mg, 0.4 mg, IntraVENous, q5 min PRN, Darvin Grady MD ondansetron ODT (Zofran-ODT) disintegrating tablet 4 mg, 4 mg, Oral, q8h PRN OR ondansetron (Zofran) injection 4 mg, 4 mg, IntraVENous, q6h PRN, Wendie Thompson DO oxyCODONE (Roxicodone) immediate release tablet 5 mg, 5 mg, Oral, q4h PRN OR oxyCODONE (Roxicodone) immediate release tablet 10 mg, 10 mg, Oral, q4h PRN, Wendie Thompson DO polyethylene glycol (PEG) 3350 (Miralax) packet 17 g, 17 g, Oral, Daily PRN, Wendie Thompson DO sertraline (Zoloft) tablet 50 mg, 50 mg, Oral, Daily, Wendie Thompson DO simethicone (Mylicon) chewable tablet 80 mg, 80 mg, Oral, q6h PRN, Wendie Thompson DO sodium chloride 0.9 % infusion, 5-250 mL/hr, IntraVENous, PRN, Wendie Thompson DO sodium chloride 0.9% (NS) flush 10 mL, 10 mL, IntraVENous, 2 times per day, Wendie Thompson DO, 10mL at 01/26/252156 sodium chloride 0.9% (NS) flush 10 mL, 10 mL, IntraVENous, PRN, Wendie Thompson DO Diagnostics: ECG 12 lead Result Date: 01/26/2025 Sinus rhythm Low voltage, precordial leads Labs: Admission on 01/26/2025 Component Date Value Ref Range Status SODIUM 01/26/2025 136 136 - 145 mmol/L Final POTASSIUM 01/26/2025 3.7 3.5 - 5.1 mmol/L Final Plasma potassium values may be up to 0.5 mmol/L lower than serum values. CHLORIDE 01/26/2025 104 98 - 107 mmol/L Final CARBON DIOXIDE 01/26/2025 22 22 - 29 mmol/L Final UREA NITROGEN 01/26/2025 12 9 - 23 mg/dL Final CREATININE 01/26/2025 0.64 0.57 - 1.11 mg/dL Final GLUCOSE 01/26/2025 129 (H) 74 - 100 mg/dL Final CALCIUM 01/26/2025 9.0 8.4 - 10.2 mg/dL Final ANION GAP 01/26/2025 10 3 - 13 mmol/L Final eGFR 01/26/2025 >90.0 >60.0 mL/min/1.73m*2 Final Calculation based on the Chronic Kidney Disease Epidemiology Collaboration (CKD- EPI) equation refitwithout adjustment for race Heart Rate 01/26/2025 76 bpm Final QRSD Interval 01/26/2025 76 ms Final QT Interval 01/26/2025 372 ms Final QTC Interval 01/26/2025 418 ms Final P [place] 01/26/2025 53 degrees Final QRS [place] 01/26/2025 56 degrees Final T Wave [place] 01/26/2025 53 degrees Final FL Interval 01/26/2025 185 ms Final Auto WBC 01/26/2025 8.5 3.6 - 10.7 10*3/uL Final RBC 01/26/2025 4.53 3.80 - 5.20 10*6/uL Final Hemoglobin 01/26/2025 13.0 11.7 - 16.0 g/dL Final Hematocrit 01/26/2025 38.2 35.0 - 47.0 % Final MCV 01/26/2025 84.3 77.0 - 99.0 fL Final MCH 01/26/2025 28.7 26.0 - 34.0 pg Final MCHC 01/26/2025 34.0 30.5 - 36.0 % Final RDW 01/26/2025 13.2 11.5 - 15.0 % Final Platelets 01/26/2025 227 140 - 440 10*3/uL Final MPV 01/26/2025 10.4 9.0 - 12.7 fL Final ABO Grouping 01/26/2025 A Final Antibody Screen 01/26/2025 NEG Final Rh Type 01/26/2025 POS Final ABO Grouping 01/26/2025 A Final Rh Type 01/26/2025 POS Final Auto WBC 01/27/2025 10.4 3.6 - 10.7 10*3/uL Final RBC 01/27/2025 3.22 (L) 3.80 - 5.20 10*6/uL Final Hemoglobin 01/27/2025 9.4 (L) 11.7 - 16.0 g/dL Final Hematocrit 01/27/2025 28.0 (L) 35.0 - 47.0 % Final MCV 01/27/2025 87.0 77.0 - 99.0 fL Final MCH 01/27/2025 29.2 26.0 - 34.0 pg Final MCHC 01/27/2025 33.6 30.5 - 36.0 % Final RDW 01/27/2025 13.0 11.5 - 15.0 % Final Platelets 01/27/2025 200 140 - 440 10*3/uL Final MPV 01/27/2025 10.4 9.0 - 12.7 fL Final Assessment/Plan: Uzma Linntage 54 y.o. female , POD#1 s/p ExLap,Removal of Pelvic mass, omentectomy, LSO - Doing well, vitals stable - barragan catheter removed - Encourage ambulation and use of incentive spirometer - Pain controlled: yes - Labs/Imaging: Hgb 13 to 9.4 post op - DVT Proph:Plavix which is held, SCDs when non ambulating - Abx:Ancef x 24 hours - Diet:Regular - IVF: Hep lock - Disposition: Patient would like to go home today, will discuss with attending HTN Hx of [place] -On Lopressor and cozaar -On Plavix and bASA at home Principal Problem: Pelvic mass Please page the [facility] SPACE CONTROL SUPERVISOR ONC Call RES group via Secure Chat for any questions or concerns. Reyna Mcgill DO 01/27/2025, 6:09 AM Cosigned by Sumaya Marroquin MD at 01/27/2025 6:22 PM EDT Associated attestation - Lopez, Sumaya Oneil MD - 01/27/2025 6:22 PM EDT Patient seen and examined, agree with resident documentation. Pain minimal, voiding, ambulating, tolerating regular diet without nausea. VS and labs appropriate without concern for acute anemia post-op. Abdomen soft, minimally tender with bandage in place. We discussed discharge instructions and follow-up, questions answered. Sumaya Marroquin MD documented in this [facility]03-15-2025 Plan of care note* Care Plan - Veda Hickman RN - 01/27/2025 5:04 AM EDT Problem: Pain - Adult Goal: Verbalizes/displays adequate comfort level or baseline comfort level Outcome: Progressing Problem: Safety - Adult Goal: Free from fall injury Outcome: Progressing Problem: Discharge Planning Goal: Discharge to home or other facility with appropriate resources Outcome: [facility]ing [id number] Miscellaneous Notes* Care Plan - Veda Hickman RN - 01/27/2025 5:04 AM EDT Problem: Pain - Adult Goal: Verbalizes/displays adequate comfort level or baseline comfort level Outcome: Progressing Problem: Safety - Adult Goal: Free from fall injury Outcome: Progressing Problem: Discharge Planning Goal: Discharge to home or other facility with appropriate resources Outcome: Progressing * Care Plan - Jenny Torres RN - 01/26/2025 5:49 PM EDT Problem: Pain - Adult Goal: Verbalizes/displays adequate comfort level or baseline comfort level Outcome: Progressing Problem: Safety - Adult Goal: Free from fall injury Outcome: Progressing Problem: Discharge Planning Goal: Discharge to home or other facility with appropriate resources Outcome: Progressing * Perioperative Nursing Note - Addy Donald RN - 01/26/2025 11:31 AM EDT Report given to Jenny PACK * Perioperative Nursing Note - Addy Donald RN - 01/26/2025 11:26 AM EDT Faxed report sheet to [facility] * Op Note - Darvin Grady MD - 01/26/2025 8:22 AM EDT Date of surgery 01/26/2025 Preoperative diagnosis pelvic mass obesity Postoperative diagnosis leiomyosarcoma of the pelvis, Procedure exploratory laparotomy with resection of intra-abdominal tumor 10 cm in diameter, left oophorectomy with omentectomy Surgeon Miguel A Anesthesia General Description of findings; there was a large somewhat necrotic vascular mass that was arising from the anterior bladder peritoneum attached to the anterior abdominal wall. This grossly looks like a leiomyosarcoma and frozen section confirmed spindle cell tumor consistent with leiomyosarcoma. There was no other tumor noted inside the abdominal cavity. The uterus right tube and ovary was absent the left ovary was normal. At the completion of the surgery all gross tumor had been removed Description of operation patient identified brought to the operating room and after ministration general anesthetic a Barragan cath was placed exam revealed a hard fixed mass in the anterior pelvis and she underwent an abdominal and perineal prep and drape and a Barragan cath was placed. Antibiotics weregiven compression stockings were on and running. Her pre-existing midline incision was opened usinga scalpel followed by Bovie cautery for the subcutaneous tissue and the fascia. The peritoneal cavity then opened sharply omentum was dissected off the anterior abdominal wall and a vascular mass wasencountered directly under the fascia. This was dissected off several areas of sigmoid epiploica, it was dissected off the bladder peritoneum as well as off the pelvic sidewalls. The mass did fracture with resection however, the entire mass was resected. Hemostasis was with several small 3-0 [id number] in the bladder peritoneum Bovie cautery as well as some hemostatic agent. Infracolic omentectomy was performed using the LigaSure. The abdomen was then explored no other evidence ofdisease was noted. The left ovary was identified, the left pelvic sidewall was open the left ureteridentified the left ovarian vessels were skeletonized above the ureter coagula the Enseal device and divided removing the left ovary. No other disease was noted the abdomen was copiously irrigated. The fascia was then closed using a running #1 PDS in a loop mass closure system after the Max wound retractor was removed the fascia was closed with #1 looped PDS, subcutaneous tissue with interrupted #1 PDS followed by subcuticular 3-0 Monocryl on the skin with Steri-Strips. Blood loss was about 500 cc and she was taken to cover room in stable condition by anesthesia * Brief Op Note - Darvin Grady MD - 01/26/2025 8:22 AM EDT Date: 01/26/2025 Location: [facility] OR Name: Uzma Mcdonald, : 1970, Diagnosis Pre-op Diagnosis * Intra-abdominal and pelvic swelling, mass and lump, unspecified site [R19.00] Post-op Diagnosis * Intra-abdominal and pelvic swelling, mass and lump, unspecified site [R19.00] Procedures Laparotomy with resection intra-abdominal tumor 10 cm in diameter, left oophorectomy with omentectomy Surgeons * Darvin Grady - Primary Procedure Summary Anesthesia: General ASA: III Estimated Blood Loss: 500 mL Drains: Urethral Catheter Straight-tip (Active) Catheter Indications Short-term following a surgical procedure (i.e. Urological or Gynecological) or active irrigation 01/26/25 1015 Site Assessment Clean;Skin intact 01/26/25 1015 Collection Container Standard drainage bag 01/26/25 1015 Securement Method Securing device 01/26/25 1015 Catheter Best Practices Drainage tube clipped to bed;Catheter secured to thigh;Tamper seal intact;Bag below bladder;Bag not on floor;Lack of dependent loop in tubing;Drainage bag less than half full 01/26/25 1015 Catheter Status Draining 01/26/25 1015 Specimens ID Source Type Tests Collected By Collected At Frozen? Priority Lab ID 1 Peritoneal Washings Wash NON-GYNECOLOGIC CYTOLOGY Darvin Grady MD 01/26/25 0853 No Description: pelvic washings 2 Pelvic Tissue TISSUE EXAM Darvin Grady MD 01/26/25 0902 Yes STAT Description: pelvic mass 3 Pelvic Tissue TISSUE EXAM Davrin Grady MD 01/26/25 0905 No Routine Description: pelvic mass #2 4 Omentum, Biopsy Tissue TISSUE EXAM Darvin Grady MD 01/26/25 0913 No Routine Description: omentum 5 Ovary, Left Tissue TISSUE EXAM Darvni Grady MD 01/26/25 0928 Routine Description: LEFT OVARY Staff: Mirror Inspector: Dora Castro RN Scrub Person: Daysi Escobar RN Cost to Circ: Sabrina Philip RN Findings: 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 Specimens Collected: Order Name Source Comment Collection Info Order Time BASIC METABOLIC PANEL Blood, Venous Collected By: Segun Kimble RN 01/26/2025 6:33 AM PROTHROMBIN TIME If patient on coumadin within 4 days prior. 01/26/2025 6:33 AM CBC (HEMOGRAM) Blood, Venous Collected By: Segun Kimble RN 01/26/2025 6:33 AM BLOOD TYPE AND SCREEN GEL Blood, Venous HOLD. Specimen is valid for 3 days - nurse to verify valid specimen Collected By: Segun Kimble RN 01/26/2025 6:33 AM HCG QUALITATIVE URINE Urine, Clean Catch Discontinue this order if: 1. patient is older than 55 years old 2. has had a prior hysterectomy 3. today's surgery is for treatment of known or suspected ectopic or loss. 4. patient has a known intrauterine but this is a needed surgery. 01/26/2025 6:33 AM NON-GYNECOLOGIC CYTOLOGY Peritoneal Washings HX OF HYSTERECTOMY. NORMAL LEFT OVARY Collected By: Darvin Grady MD 01/26/2025 8:54 AM TISSUE EXAM Pelvic HX OF HYSTERECTOMY. NORMAL LEFT OVARY Collected By: Darvin Grady MD 01/26/2025 9:04 AM Wound Class: Class I: Clean Blood Products: None Prophylactic Antibiotics: Procedure appropriate prophylactic antibiotic(s) given within 1 hour of surgical incision (two hours if receiving Vancomycin or flouroquinolone) documented in this [place] [id number] Plan of care note* Care Plan - Jenny Torres RN - 01/26/2025 5:49 PM EDT Problem: Pain - Adult Goal: Verbalizes/displays adequate comfort level or baseline comfort level Outcome: Progressing Problem: Safety - Adult Goal: Free from fall injury Outcome: Progressing Problem: Discharge Planning Goal: Discharge to home or other facility with appropriate resources Outcome: Progressing [place] [id number] Nurse Note* Jenny Torres RN - 01/26/2025 4:40 PM EDT Meds to Beds delivered to patient. Pt declined oxycodone prescription and sent back with Meds to Beds. [id number] Nurse Note* Jenny Torres RN - 01/26/2025 4:40 PM EDT Meds to Beds delivered to patient. Pt declined oxycodone prescription and sent back with Meds to Beds. * Roxy Jimenez RN - 01/26/2025 10:34 AM EDT Patient family/visitor updated by RN at this time. documented in this [address]14-2025 Nurse Note* Perioperative Nursing Note - Addy Donald RN - 01/26/2025 11:31 AM EDT Report given to Jenny PACK [id number] Nurse Note* Perioperative Nursing Note - Addy Donald RN - 01/26/2025 11:26 AM EDT Faxed report sheet to [facility] [id number] Nurse Note* Roxy Jimenez RN - 01/26/2025 10:34 AM EDT Patient family/visitor updated by RN at this time. [place] [id number] Hospital Discharge instructions* Discharge Instructions* Wendie Thompson DO - 01/26/2025 10:34 AM EDT Please follow your post operative care instructions given to you by your [employer] Developer Oncologist's office at your pre operative visit. Please call the office with questions or concerns and be sure to follow up at your scheduled post operative visit. * Attachments The following attachments cannot be sent through Care Everywhere. * Exploratory Laparotomy Discharge Instructions (Tuvaluan) documented in this [facility]03-14-2025 NotePatient: Uzmasilva Mcdonald Procedure Summary Date: 01/26/25 Room / Location: [address] Operating Room Anesthesia Start: 08 Anesthesia Stop: 1019 Procedures: EXPLORATORY LAPAROTOMY, LEFT OOPHORECTOMY, RESECTION OF PELVIC MASS, PELVIC WASHINGS , OMENTECTOMY (Abdomen) LEFT OOPHORECTOMY (Left: Abdomen) POSSIBLE LYMPHADENECTOMY, PARA-AORTIC OR PELVIC, LIMITED, FOR STAGING (Abdomen) LAPAROSCOPY, WITH BIOPSY (Abdomen) Diagnosis: Intra-abdominal and pelvic swelling, mass and lump, unspecified site Surgeons: Darvin Grady MD Responsible Provider: Jaime Yadav MD Anesthesia Type: general, regional ASA Status: 3 Anesthesia Type: general, regional Vitals Value Taken Time BP 105/43 01/26/25 1017 Temp 97.6 01/26/25 1020 Pulse 72 01/26/25 1019 Resp 12 01/26/25 1020 SpO2 96 % 01/26/25 1019 Vitals shown include unfiled device data. Anesthesia Post Evaluation Patient location during evaluation: PACU Patient participation: complete - patient participated Level of consciousness: awake and alert Pain score: 0 Pain management: satisfactory to patient Multimodal analgesia pain management approach Airway patency: patent Two or more strategies used to mitigate risk of obstructive sleep apnea Cardiovascular status: acceptable and hemodynamically stable Respiratory status: acceptable Hydration status: acceptable No notable events documented. MIPS #430 PONV Patient received an inhalational anesthetic (4554F) Patient exhibits three or more risk factors for PONV (4556F) Patient received at leaset 2 prophylactic Rx PONV anti-emtic agents of different classes preop and/or intraop (G9775) MIPS # 424 Perioperative Temperature Management Anesthesia time was 60 minutes or longer (4255F) Anesthesai administered was General (inhalational or TIVA) or Neuraxial block (X0424) At least one body temperature greater than 95.8F/35.5C achieved within the 30 mins immediately prior to or the 15 minutes immediately following anesthesia end time (G9771) MIPS #477 Multimodal Pain Management Not emergent case Patient was administered multimodal pain management (two or more drugs and/or interventions excluding systemic opioids) in the periopeartive period occurring at some time between 6 hours prior to anesthesia start time until discharged from PACU (G2148) MIPS #404 Anesthesiology Smoking Abstinence The patient is not a current smoker (e.g. cigarette, cigar, pipe, e-cigarette/vaping/marijuana) If no stop here (XX404) I completed my handoff to the receiving clinician during which we: 1. Identified the patient 2. Identified the responsible provider 3. Reviewed the pertinent medical history 4. Discussed the surgical course 5. Reviewed intra-op anesthesia management and issues during anesthesia 6. Set expectations for post-procedure period 7. Allowed opportunity for questions and acknowledgement of understanding.[facility] [id number] NotePatient: Uzma Freetage Procedure Summary Date: 01/26/25 Room / Location: [address] Operating Room Anesthesia Start: 822 Anesthesia Stop: 1019 Procedures: EXPLORATORY LAPAROTOMY, LEFT OOPHORECTOMY, RESECTION OF PELVIC MASS, PELVIC WASHINGS , OMENTECTOMY (Abdomen) LEFT OOPHORECTOMY (Left: Abdomen) POSSIBLE LYMPHADENECTOMY, PARA-AORTIC OR PELVIC, LIMITED, FOR STAGING (Abdomen) LAPAROSCOPY, WITH BIOPSY (Abdomen) Diagnosis: Intra-abdominal and pelvic swelling, mass and lump, unspecified site Surgeons: Darvin Grady MD Responsible Provider: Jaime Yadav MD Anesthesia Type: general, regional ASA Status: 3 Anesthesia Type: general, regional Vitals Value Taken Time BP 105/43 01/26/25 1017 Temp 97.6 01/26/25 1020 Pulse 72 01/26/25 1019 Resp 12 01/26/25 1020 SpO2 96 % 01/26/25 1019 Vitals shown include unfiled device data. Anesthesia Post Evaluation Patient location during evaluation: PACU Patient participation: complete - patient participated Level of consciousness: awake and alert Pain management: satisfactory to patient Airway patency: patent Dental Injury: no Cardiovascular status: acceptable, blood pressure returned to baseline and hemodynamically stable Respiratory status: acceptable and spontaneous ventilation Hydration status: euvolemic Nausea/Vomiting: controlled No notable events documented. Patient can be discharged once all PACU criteria has been met.[facility] [id number] NoteAirway Date/Time: 01/26/2025 8:29 AM Urgency: scheduled Airway not difficult General Information and Staff Patient location during procedure: Procedural Resident/OPERATIONS AND MAINTENANCE TECHNICAN: Skip Whittaker CRNA Performed: SRNA and OPERATIONS AND MAINTENANCE TECHNICAN Indications and Patient Condition Indications for airway management: anesthesia Sedation level: Asleep Preoxygenated: yes Patient position: sniffing Mask difficulty assessment: 1 - vent by mask Final Airway Details Final airway type: endotracheal airway Successful airway: ETT Cuffed: yes Successful intubation technique: direct laryngoscopy Facilitating devices/methods: intubating stylet Endotracheal tube insertion site: oral Blade: Uzair Blade size: #3 ETT size (mm): 7.0 Cormack-Lehane Classification: grade I - full view of glottis Placement verified by: chest auscultation and capnometry Measured from: lips ETT to lips (cm): 19 Number of attempts at approach: 1 Number of other approaches attempted: 0[facility] [id number] Note Peripheral Block Time Out: 01/26/2025 8:35 AM Patient location during procedure: Procedural Start time: 01/26/2025 8:35 AM End time: 01/26/2025 8:35 AM Reason for block: at surgeon's request and post-op pain management Staffing Performed: OPERATIONS AND MAINTENANCE TECHNICAN Resident/OPERATIONS AND MAINTENANCE TECHNICAN: Roni Porter APRN - OPERATIONS AND MAINTENANCE TECHNICAN Preanesthetic Checklist Completed: patient identified, IV checked, site marked, risks and benefits discussed, surgical consent, monitors and equipment checked, pre-op evaluation and timeout performed Region: [place] Primary: TAP (Bupivacaine 0.375%/ Epi 1:200,000/ Dex 0.1mg/mL 40ml divided evenly bilateral) Secondary: Upper rectus (Bupivacaine 0.375%/ Epi 1:200,000/ Dex 0.1mg/mL 20ml divided evenly bilateral) Peripheral Block Patient position: supine Prep: ChloraPrep Patient monitoring: heart rate, traffic monitor specialist, continuous pulse ox and continuous capnometry O2: ETT/LMA Laterality: bilateral Injection technique: single-shot Guidance: ultrasound guided -image retained in chart, tip of the needle identified by ultraound during injection. Needle Needle: 21G X 110 mm Additional Notes 01/26/2025 8:35 AM Assessment Injection assessment: negative aspiration for heme, no paresthesia on injection and incremental injection Heart rate change: no Slow fractionated injection: yes Required Documentation: Relevant anatomy identified (Nerves, Vessels, Muscles), Negative for blood on aspiration, Local anesthetic injected incrementally with intermittent aspiration every 5 mL, Normal resistance with injection, No EKG changes noted, No symptoms of toxicity, Local anesthetic spread visualized around nerves or plane. and Local anesthetic injected without difficultyMedications udfOLPLXalzpq-gzyvjiywvpi-grwpgtijunq (TAP) syringe - Injection 60 mL - 01/26/2025 8:35:00 [facility] [id number] Procedure note* Op Note - Darvin Grady MD - 01/26/2025 8:22 AM EDT Date of surgery 01/26/2025 Preoperative diagnosis pelvic mass obesity Postoperative diagnosis leiomyosarcoma of the pelvis, Procedure exploratory laparotomy with resection of intra-abdominal tumor 10 cm in diameter, left oophorectomy with omentectomy Surgeon Miguel A Anesthesia General Description of findings; there was a large somewhat necrotic vascular mass that was arising from the anterior bladder peritoneum attached to the anterior abdominal wall. This grossly looks like a leiomyosarcoma and frozen section confirmed spindle cell tumor consistent with leiomyosarcoma. There was no other tumor noted inside the abdominal cavity. The uterus right tube and ovary was absent the left ovary was normal. At the completion of the surgery all gross tumor had been removed Description of operation patient identified brought to the operating room and after ministration general anesthetic a Barragan cath was placed exam revealed a hard fixed mass in the anterior pelvis and she underwent an abdominal and perineal prep and drape and a Barragan cath was placed. Antibiotics weregiven compression stockings were on and running. Her pre-existing midline incision was opened usinga scalpel followed by Bovie cautery for the subcutaneous tissue and the fascia. The peritoneal cavity then opened sharply omentum was dissected off the anterior abdominal wall and a vascular mass wasencountered directly under the fascia. This was dissected off several areas of sigmoid epiploica, it was dissected off the bladder peritoneum as well as off the pelvic sidewalls. The mass did fracture with resection however, the entire mass was resected. Hemostasis was with several small 3-0 Fqadarbkadiu-yr-ocjsq's in the bladder peritoneum Bovie cautery as well as some hemostatic agent. Infracolic omentectomy was performed using the LigaSure. The abdomen was then explored no other evidence ofdisease was noted. The left ovary was identified, the left pelvic sidewall was open the left ureteridentified the left ovarian vessels were skeletonized above the ureter coagula the Enseal device and divided removing the left ovary. No other disease was noted the abdomen was copiously irrigated. The fascia was then closed using a running #1 PDS in a loop mass closure system after the Max wound retractor was removed the fascia was closed with #1 looped PDS, subcutaneous tissue with interrupted #1 PDS followed by subcuticular 3-0 Monocryl on the skin with Steri-Strips. Blood loss was about 500 cc and she was taken to cover room in stable condition by anesthesia [facility]03-14-2025 Procedure note* Brief Op Note - Darvin Grady MD - 01/26/2025 8:22 AM EDT Date: 01/26/2025 Location: [facility] OR Name: Uzma Mcdonald, : 1970, Diagnosis Pre-op Diagnosis * Intra-abdominal and pelvic swelling, mass and lump, unspecified site [R19.00] Post-op Diagnosis * Intra-abdominal and pelvic swelling, mass and lump, unspecified site [R19.00] Procedures Laparotomy with resection intra-abdominal tumor 10 cm in diameter, left oophorectomy with omentectomy Surgeons * Darvin Grady - Primary Procedure Summary Anesthesia: General ASA: III Estimated Blood Loss: 500 mL Drains: Urethral Catheter Straight-tip (Active) Catheter Indications Short-term following a surgical procedure (i.e. Urological or Gynecological) or active irrigation 01/26/25 1015 Site Assessment Clean;Skin intact 01/26/25 1015 Collection Container Standard drainage bag 01/26/25 1015 Securement Method Securing device 01/26/25 1015 Catheter Best Practices Drainage tube clipped to bed;Catheter secured to thigh;Tamper seal intact;Bag below bladder;Bag not on floor;Lack of dependent loop in tubing;Drainage bag less than half full 01/26/25 1015 Catheter Status Draining 01/26/25 1015 Specimens ID Source Type Tests Collected By Collected At Frozen? Priority Lab ID 1 Peritoneal Washings Wash NON-GYNECOLOGIC CYTOLOGY Darvin Grady MD 01/26/25 0853 No Description: pelvic washings 2 Pelvic Tissue TISSUE EXAM Darvin Grady MD 01/26/25 0902 Yes STAT Description: pelvic mass 3 Pelvic Tissue TISSUE EXAM Darvin Grady MD 01/26/25 0905 No Routine Description: pelvic mass #2 4 Omentum, Biopsy Tissue TISSUE EXAM Darvin Grady MD 01/26/25 0913 No Routine Description: omentum 5 Ovary, Left Tissue TISSUE EXAM Darvin Grady MD 01/26/25 0928 Routine Description: LEFT OVARY Staff: Mirror Inspector: Dora Castro RN Scrub Person: Daysi Escobar RN Cost to Circ: Sabrina Philip RN Findings: 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 Specimens Collected: Order Name Source Comment Collection Info Order Time BASIC METABOLIC PANEL Blood, Venous Collected By: Segun Kimble RN 01/26/2025 6:33 AM PROTHROMBIN TIME If patient on coumadin within 4 days prior. 01/26/2025 6:33 AM CBC (HEMOGRAM) Blood, Venous Collected By: Segun Kimble RN 01/26/2025 6:33 AM BLOOD TYPE AND SCREEN GEL Blood, Venous HOLD. Specimen is valid for 3 days - nurse to verify valid specimen Collected By: Segun Kimble RN 01/26/2025 6:33 AM HCG QUALITATIVE URINE Urine, Clean Catch Discontinue this order if: 1. patient is older than 55 years old 2. has had a prior hysterectomy 3. today's surgery is for treatment of known or suspected ectopic or loss. 4. patient has a known intrauterine but this is a needed surgery. 01/26/2025 6:33 AM NON-GYNECOLOGIC CYTOLOGY Peritoneal Washings HX OF HYSTERECTOMY. NORMAL LEFT OVARY Collected By: Darvin Grady MD 01/26/2025 8:54 AM TISSUE EXAM Pelvic HX OF HYSTERECTOMY. NORMAL LEFT OVARY Collected By: Darvin Grady MD 01/26/2025 9:04 AM Wound Class: Class I: Clean Blood Products: None Prophylactic Antibiotics: Procedure appropriate prophylactic antibiotic(s) given within 1 hour of surgical incision (two hours if receiving Vancomycin or flouroquinolone) [facility]03-14-2025 NotePatient: Uzma Freetage Procedure Information Date/Time: 01/26/25 0830 Procedures: LAPAROTOMY, EXPLORATORY (Abdomen) - 1 HOUR GENERAL TAP BLOCK LEFT LAPAROSCOPIC, SALPINGO-OOPHORECTOMY (Left: Abdomen) POSSIBLE LYMPHADENECTOMY, PARA-AORTIC OR PELVIC, LIMITED, FOR STAGING (Abdomen) LAPAROSCOPY, WITH BIOPSY (Abdomen) Location: [facility] OR [address] [place] [address] Operating Room Surgeons: Darvin Grady MD Relevant Problems No relevant active problems Past Medical History: Past Medical History: No date: Anemia due to chronic blood loss No date: Atherosclerosis of coronary artery without angina pectoris No date: Cardiac murmur No date: Essential hypertension No date: Gastric reflux No date: High cholesterol 2021: History of blood transfusion No date: History of echocardiogram No date: History of non-ST elevation myocardial infarction (NSTEMI) No date: Kidney stones No date: Menorrhagia No date: Postoperative pain No date: Shortness of breath on exertion No date: Uterine fibroid Past Surgical History: Past Surgical History: No date: CARDIAC CATHETERIZATION No date: CATARACT EXTRACTION; Bilateral No date: CHOLECYSTECTOMY 03/31/2021: CORONARY STENT PLACEMENT No date: HYSTERECTOMY No date: OOPHORECTOMY No date: TUBAL LIGATION Social History: TOBACCO: reports that she has been smoking cigarettes. She started smoking about 39 years ago. She has a 39.2 pack-year smoking history. She has never used smokeless tobacco. ETOH: reports no history of alcohol use. Social History Substance and Sexual Activity Drug Use Never Family History: Family History Problem Relation Name Age of Onset Kidney disease Father Breast cancer Father's Sister late 50's, early 60's Screening: Hysterectomy Clinical information reviewed: Tobacco Allergies Meds Med Hx Surg Hx OB Status Fam Hx Soc Hx Physical Exam Airway Mallampati: II TM distance: >3 FB Neck ROM: full Mouth Open: normalendotracheal tube not in place Cardiovascular Dental (+) Upper Dentures Pulmonary Abdominal Anesthesia Plan patient is NPO appropriate Any family history or previous problems with anesthesia no ASA 3 general and regional Any family history or previous problems with anesthesia no(TAP w/exparel) The patient is not a current smoker. Anesthetic plan and risks discussed with patient (daughter). [facility] Screening Labs: Lab Results Component Value Date WBC 8.5 01/26/2025 HGB 13.0 01/26/2025 HCT 38.2 01/26/2025 MCV 84.3 01/26/2025 PLT 227 01/26/2025 Lab Results Component Value Date NA 136 01/26/2025 K 3.7 01/26/2025 CL 104 01/26/2025 CO2 22 01/26/2025 BUN 12 01/26/2025 CREATININE 0.64 01/26/2025 GLUCOSE 129 (H) 01/26/2025 CALCIUM 9.0 01/26/2025 EGFR >90.0 01/26/2025 Pain Score: Scheduled No echocardiogram results found for the past 14 days 01/26/25 ECG 12-LEAD (Preliminary) This result has not been signed. Information might be incomplete. Impression Sinus rhythm Low voltage, precordial leads Equipment Requests: [facility] [id number] Attending History and physical note* Darvin Grady MD - 01/26/2025 7:05 AM EDT H&P reviewed. The patient was examined and there are no changes to the H&P. Source Note - Darvin Grady MD - 01/17/2025 10:30 AM EST Images from the original note were not included. HPI: Uzma Mcdonald is a pleasant 54 y.o. female who presents in consultation from Dr. Cori cristina evaluation and management of left pelvic mass. She initiallypresented with symptoms of a UTI about a month ago. Last Wednesday had severe pain in left flank and pelvis, with frequency. She states the pain was so bad that she had to go to the emergency room. She was placed on pain medicine and the pain has subsided. Still does have some discomfort in her left lower pelvis. Also feeling of bloating and fullness. Associated urinary frequency. . This showed an 8.1 cm complex left adnexal mass subsequently underwent pelvic ultrasound that does show a 10.5 cm complex left adnexal mass. No ascites was noted. No other adenopathy noted. The patient is status post supracervical hysterectomy withRSO in the past. 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 Denies any history of DVT or pulmonary embolism Past Medical History: Diagnosis Date Anemia due to chronic blood loss Atherosclerosis of coronary artery without angina pectoris Cardiac murmur Essential hypertension Gastric reflux High cholesterol History of blood transfusion History of echocardiogram History of non-ST elevation myocardial infarction (NSTEMI) Kidney stones Menorrhagia Postoperative pain Shortness of breath on exertion Uterine fibroid Past Surgical History: Procedure Laterality Date CATARACT EXTRACTION Bilateral CHOLECYSTECTOMY CORONARY STENT PLACEMENT 03/31/2021 HYSTERECTOMY TUBAL LIGATION RSO Family History Problem Relation Name Age of Onset Kidney disease Father Breast cancer Father's Sister late 50's, early 60's No other cancers Social History Socioeconomic History Marital status: Unknown Tobacco Use Smoking status: Every Day Types: Cigarettes Smokeless tobacco: Never Substance and Sexual Activity Alcohol use: Never Drug use: Never Sexual activity: Not Currently Social Drivers of Health Financial Resource Strain: Low Risk (01/24/2023) Received from [facility] Overall Financial Resource Strain (CARDIA) Difficulty of Paying Living Expenses: Not very hard Food Insecurity: No Food Insecurity (01/24/2023) Received from [facility] Hunger Vital Sign Worried About Running Out of Food in the Last Year: Never true Ran Out of Food in the Last Year: Never true Transportation Needs: No Transportation Needs (01/24/2023) Received from [facility] PRAPARE - Transportation Lack of Transportation (Medical): No Lack of Transportation (Non-Medical): No Physical Activity: Insufficiently Active (01/24/2023) Received from [facility] Exercise Vital Sign Days of Exercise per Week: 2 days Minutes of Exercise per Session: 20 min Stress: Stress Concern Present (01/24/2023) Received from [facility] [employer] - Occupational Stress Questionnaire Feeling of Stress : Rather much Social Connections: Moderately Isolated (01/24/2023) Received from [facility] Social Connection and Isolation Panel [NHANES] Frequency of Communication with Friends and Family: Three times a week Frequency of Social Gatherings with Friends and Family: Never Attends Holiness Services: Never Active Member of Clubs or Organizations: No Marital Status: Housing Stability: Low Risk (01/24/2023) Received from [facility] Housing Stability Vital Sign Unable to Pay for Housing in the Last Year: No Number of Places Lived in the Last Year: 1 Unstable Housing in the Last Year: No Current Outpatient Medications Medication Sig Dispense Refill aspirin 81 MG EC tablet Take 81 mg by mouth daily. atorvastatin (Lipitor) 40 MG tablet Take 40 mg by mouth daily. clopidogrel (Plavix) 75 MG tablet Take 75 mg by mouth daily. losartan (Cozaar) 25 MG tablet Take 25 mg by mouth daily. metoprolol tartrate (Lopressor) 25 MG tablet Take 25 mg by mouth twice a day. sertraline (Zoloft) 50 MG tablet Take 50 mg by mouth daily. No current facility-administered medications for this visit. Allergies as of 01/17/2025 (No Known Allergies) Review of Systems: Review of Systems Gastrointestinal: Positive for abdominal distention and abdominal pain. Genitourinary: Positive for frequency and pelvic pain. Negative for vaginal bleeding and vaginal discharge. BP 122/68 Pulse 69 Ht 1.702 m (5' 7) Wt 107 kg (236 lb 1.6 oz) SpO2 95% BMI 36.98 kg/m Physical Exam: Physical Exam Vitals and nursing note reviewed. Exam conducted with a business analyst sales operations present. Constitutional: Appearance: She is obese. Cardiovascular: Rate and Rhythm: Normal rate and regular rhythm. Pulmonary: Effort: Pulmonary effort is normal. Breath sounds: Normal breath sounds. Abdominal: General: Abdomen is flat. A surgical scar is present. Palpations: Abdomen is soft. There is mass. Tenderness: There is abdominal tenderness. Comments: Well-healed midline incision Genitourinary: General: Normal vulva. Labia: Right: No lesion. Left: No lesion. Urethra: No urethral lesion. Comments: Uterine fundus is missing. The cervix is normal. There is a solid mass anterior in the pelvis that is tender. Lymphadenopathy: Lower Body: No right inguinal adenopathy. No left inguinal adenopathy. Neurological: Mental Status: She is alert. Psychiatric: Mood and Affect: Mood normal. Behavior: Behavior normal. Radiology review; CT scan is personally been reviewed and does show a mostly solid complex irregular mass in the lower pelvis somewhat to the left side. No ascites or adenopathy noted. Differential diagnosis would include malignant ovarian tumor Labs: No components found for: CBC No components found for: CMP Pathology: : ASSESSMENT/PLAN: Diagnosis Plan 1. Pelvic mass in female Very suspicious for ovarian malignancy. Recommend proceeding with exploratory laparotomy LSO and possible staging possible trachelectomy. Discussed risk of major abdominal surgery to include bleedinginfection and damage to other organs. Total time spent in review of EMR review of imaging studies with patient coordination of surgical scheduling on date of service as well as [id number] counseling with patient was 35 minutes Patient has been asked to stop her Plavix 5 days before surgery [facility] Work Phone: [phone] NoteH&P reviewed. The patient was examined and there are no changes to the H&P.Machinio [id number] History and physical note* Darvin Grady MD - 01/26/2025 7:05 AM EDT H&P reviewed. The patient was examined and there are no changes to the H&P. Source Note - Darvin Grady MD - 01/17/2025 10:30 AM EST Images from the original note were not included. HPI: Uzma Mcdonald is a pleasant 54 y.o. female who presents in consultation from Dr. Cori cristina evaluation and management of left pelvic mass. She initiallypresented with symptoms of a UTI about a month ago. Last Wednesday had severe pain in left flank and pelvis, with frequency. She states the pain was so bad that she had to go to the emergency room. She was placed on pain medicine and the pain has subsided. Still does have some discomfort in her left lower pelvis. Also feeling of bloating and fullness. Associated urinary frequency. . This showed an 8.1 cm complex left adnexal mass subsequently underwent pelvic ultrasound that does show a 10.5 cm complex left adnexal mass. No ascites was noted. No other adenopathy noted. The patient is status post supracervical hysterectomy withRSO in the past. 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 Denies any history of DVT or pulmonary embolism Past Medical History: Diagnosis Date Anemia due to chronic blood loss Atherosclerosis of coronary artery without angina pectoris Cardiac murmur Essential hypertension Gastric reflux High cholesterol History of blood transfusion History of echocardiogram History of non-ST elevation myocardial infarction (NSTEMI) Kidney stones Menorrhagia Postoperative pain Shortness of breath on exertion Uterine fibroid Past Surgical History: Procedure Laterality Date CATARACT EXTRACTION Bilateral CHOLECYSTECTOMY CORONARY STENT PLACEMENT 03/31/2021 HYSTERECTOMY TUBAL LIGATION RSO Family History Problem Relation Name Age of Onset Kidney disease Father Breast cancer Father's Sister late 50's, early 60's No other cancers Social History Socioeconomic History Marital status: Unknown Tobacco Use Smoking status: Every Day Types: Cigarettes Smokeless tobacco: Never Substance and Sexual Activity Alcohol use: Never Drug use: Never Sexual activity: Not Currently Social Drivers of Health Financial Resource Strain: Low Risk (01/24/2023) Received from [facility] Overall Financial Resource Strain (CARDIA) Difficulty of Paying Living Expenses: Not very hard Food Insecurity: No Food Insecurity (01/24/2023) Received from [facility] Hunger Vital Sign Worried About Running Out of Food in the Last Year: Never true Ran Out of Food in the Last Year: Never true Transportation Needs: No Transportation Needs (01/24/2023) Received from [facility] PRAPARE - Transportation Lack of Transportation (Medical): No Lack of Transportation (Non-Medical): No Physical Activity: Insufficiently Active (01/24/2023) Received from [facility] Exercise Vital Sign Days of Exercise per Week: 2 days Minutes of Exercise per Session: 20 min Stress: Stress Concern Present (01/24/2023) Received from [facility] [employer] - Occupational Stress Questionnaire Feeling of Stress : Rather much Social Connections: Moderately Isolated (01/24/2023) Received from [facility] Social Connection and Isolation Panel [NHANES] Frequency of Communication with Friends and Family: Three times a week Frequency of Social Gatherings with Friends and Family: Never Attends Holiness Services: Never Active Member of Clubs or Organizations: No Marital Status: Housing Stability: Low Risk (01/24/2023) Received from [facility] Housing Stability Vital Sign Unable to Pay for Housing in the Last Year: No Number of Places Lived in the Last Year: 1 Unstable Housing in the Last Year: No Current Outpatient Medications Medication Sig Dispense Refill aspirin 81 MG EC tablet Take 81 mg by mouth daily. atorvastatin (Lipitor) 40 MG tablet Take 40 mg by mouth daily. clopidogrel (Plavix) 75 MG tablet Take 75 mg by mouth daily. losartan (Cozaar) 25 MG tablet Take 25 mg by mouth daily. metoprolol tartrate (Lopressor) 25 MG tablet Take 25 mg by mouth twice a day. sertraline (Zoloft) 50 MG tablet Take 50 mg by mouth daily. No current facility-administered medications for this visit. Allergies as of 01/17/2025 (No Known Allergies) Review of Systems: Review of Systems Gastrointestinal: Positive for abdominal distention and abdominal pain. Genitourinary: Positive for frequency and pelvic pain. Negative for vaginal bleeding and vaginal discharge. BP 122/68 Pulse 69 Ht 1.702 m (5' 7) Wt 107 kg (236 lb 1.6 oz) SpO2 95% BMI 36.98 kg/m Physical Exam: Physical Exam Vitals and nursing note reviewed. Exam conducted with a business analyst sales operations present. Constitutional: Appearance: She is obese. Cardiovascular: Rate and Rhythm: Normal rate and regular rhythm. Pulmonary: Effort: Pulmonary effort is normal. Breath sounds: Normal breath sounds. Abdominal: General: Abdomen is flat. A surgical scar is present. Palpations: Abdomen is soft. There is mass. Tenderness: There is abdominal tenderness. Comments: Well-healed midline incision Genitourinary: General: Normal vulva. Labia: Right: No lesion. Left: No lesion. Urethra: No urethral lesion. Comments: Uterine fundus is missing. The cervix is normal. There is a solid mass anterior in the pelvis that is tender. Lymphadenopathy: Lower Body: No right inguinal adenopathy. No left inguinal adenopathy. Neurological: Mental Status: She is alert. Psychiatric: Mood and Affect: Mood normal. Behavior: Behavior normal. Radiology review; CT scan is personally been reviewed and does show a mostly solid complex irregular mass in the lower pelvis somewhat to the left side. No ascites or adenopathy noted. Differential diagnosis would include malignant ovarian tumor Labs: No components found for: CBC No components found for: CMP Pathology: : ASSESSMENT/PLAN: Diagnosis Plan 1. Pelvic mass in female Very suspicious for ovarian malignancy. Recommend proceeding with exploratory laparotomy LSO and possible staging possible trachelectomy. Discussed risk of major abdominal surgery to include bleedinginfection and damage to other organs. Total time spent in review of EMR review of imaging studies with patient coordination of surgical scheduling on date of service as well as [id number] counseling with patient was 35 minutes Patient has been asked to stop her Plavix 5 days before surgery documented in this [facility]03-07-2025 Telephone encounter Note* Telephone Encounter - Audelia Sams - 01/19/2025 11:38 AM EST PAT 01.23.2025 at 9:30 am by phone SX: 04.28.2025 at 8:30 am arrival at 6:30 am Post op 02.09.2025 at 11 am Folder and instructions given. [id number] Miscellaneous Notes* Telephone Encounter - Audelia Sams - 01/19/2025 11:38 AM EST PAT 01.23.2025 at 9:30 am by phone SX: 04.28.2025 at 8:30 am arrival at 6:30 am Post op 02.09.2025 at 11 am Folder and instructions given. documented in this [facility]03-05-2025 History of Present illness Narrative* Darvin Grady MD - 01/17/2025 10:30 AM EST Images from the original note were not included. HPI: Uzma Mcdonald is a pleasant 54 y.o. female who presents in consultation from Dr. Persaud forchristy evaluation and management of left pelvic mass. She initiallypresented with symptoms of a UTI about a month ago. Last Wednesday had severe pain in left flank and pelvis, with frequency. She states the pain was so bad that she had to go to the emergency room. She was placed on pain medicine and the pain has subsided. Still does have some discomfort in her left lower pelvis. Also feeling of bloating and fullness. Associated urinary frequency. . This showed an 8.1 cm complex left adnexal mass subsequently underwent pelvic ultrasound that does show a 10.5 cm complex left adnexal mass. No ascites was noted. No other adenopathy noted. The patient is status post supracervical hysterectomy withRSO in the past. 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 Denies any history of DVT or pulmonary embolism Past Medical History: Diagnosis Date Anemia due to chronic blood loss Atherosclerosis of coronary artery without angina pectoris Cardiac murmur Essential hypertension Gastric reflux High cholesterol History of blood transfusion History of echocardiogram History of non-ST elevation myocardial infarction (NSTEMI) Kidney stones Menorrhagia Postoperative pain Shortness of breath on exertion Uterine fibroid Past Surgical History: Procedure Laterality Date CATARACT EXTRACTION Bilateral CHOLECYSTECTOMY CORONARY STENT PLACEMENT 03/31/2021 HYSTERECTOMY TUBAL LIGATION RSO Family History Problem Relation Name Age of Onset Kidney disease Father Breast cancer Father's Sister late 50's, early 60's No other cancers Social History Socioeconomic History Marital status: Unknown Tobacco Use Smoking status: Every Day Types: Cigarettes Smokeless tobacco: Never Substance and Sexual Activity Alcohol use: Never Drug use: Never Sexual activity: Not Currently Social Drivers of Health Financial Resource Strain: Low Risk (01/24/2023) Received from [facility] Overall Financial Resource Strain (CARDIA) Difficulty of Paying Living Expenses: Not very hard Food Insecurity: No Food Insecurity (01/24/2023) Received from [facility] Hunger Vital Sign Worried About Running Out of Food in the Last Year: Never true Ran Out of Food in the Last Year: Never true Transportation Needs: No Transportation Needs (01/24/2023) Received from [facility] PRAPARE - Transportation Lack of Transportation (Medical): No Lack of Transportation (Non-Medical): No Physical Activity: Insufficiently Active (01/24/2023) Received from [facility] Exercise Vital Sign Days of Exercise per Week: 2 days Minutes of Exercise per Session: 20 min Stress: Stress Concern Present (01/24/2023) Received from [facility] [employer] - Occupational Stress Questionnaire Feeling of Stress : Rather much Social Connections: Moderately Isolated (01/24/2023) Received from [facility] Social Connection and Isolation Panel [NHANES] Frequency of Communication with Friends and Family: Three times a week Frequency of Social Gatherings with Friends and Family: Never Attends Holiness Services: Never Active Member of Clubs or Organizations: No Marital Status: Housing Stability: Low Risk (01/24/2023) Received from [facility] Housing Stability Vital Sign Unable to Pay for Housing in the Last Year: No Number of Places Lived in the Last Year: 1 Unstable Housing in the Last Year: No Current Outpatient Medications Medication Sig Dispense Refill aspirin 81 MG EC tablet Take 81 mg by mouth daily. atorvastatin (Lipitor) 40 MG tablet Take 40 mg by mouth daily. clopidogrel (Plavix) 75 MG tablet Take 75 mg by mouth daily. losartan (Cozaar) 25 MG tablet Take 25 mg by mouth daily. metoprolol tartrate (Lopressor) 25 MG tablet Take 25 mg by mouth twice a day. sertraline (Zoloft) 50 MG tablet Take 50 mg by mouth daily. No current facility-administered medications for this visit. Allergies as of 01/17/2025 (No Known Allergies) Review of Systems: Review of Systems Gastrointestinal: Positive for abdominal distention and abdominal pain. Genitourinary: Positive for frequency and pelvic pain. Negative for vaginal bleeding and vaginal discharge. BP 122/68 Pulse 69 Ht 1.702 m (5' 7) Wt 107 kg (236 lb 1.6 oz) SpO2 95% BMI 36.98 kg/m Physical Exam: Physical Exam Vitals and nursing note reviewed. Exam conducted with a business analyst sales operations present. Constitutional: Appearance: She is obese. Cardiovascular: Rate and Rhythm: Normal rate and regular rhythm. Pulmonary: Effort: Pulmonary effort is normal. Breath sounds: Normal breath sounds. Abdominal: General: Abdomen is flat. A surgical scar is present. Palpations: Abdomen is soft. There is mass. Tenderness: There is abdominal tenderness. Comments: Well-healed midline incision Genitourinary: General: Normal vulva. Labia: Right: No lesion. Left: No lesion. Urethra: No urethral lesion. Comments: Uterine fundus is missing. The cervix is normal. There is a solid mass anterior in the pelvis that is tender. Lymphadenopathy: Lower Body: No right inguinal adenopathy. No left inguinal adenopathy. Neurological: Mental Status: She is alert. Psychiatric: Mood and Affect: Mood normal. Behavior: Behavior normal. Radiology review; CT scan is personally been reviewed and does show a mostly solid complex irregular mass in the lower pelvis somewhat to the left side. No ascites or adenopathy noted. Differential diagnosis would include malignant ovarian tumor Labs: No components found for: CBC No components found for: CMP Pathology: : ASSESSMENT/PLAN: Diagnosis Plan 1. Pelvic mass in female Very suspicious for ovarian malignancy. Recommend proceeding with exploratory laparotomy LSO and possible staging possible trachelectomy. Discussed risk of major abdominal surgery to include bleedinginfection and damage to other organs. Total time spent in review of EMR review of imaging studies with patient coordination of surgical scheduling on date of service as well as [id number] counseling with patient was 35 minutes Patient has been asked to stop her Plavix 5 days before surgery * Susy Blake MA - 01/17/2025 10:30 AM EST Advanced Practice Nurse was offered to the patient for exam. Patient accepted, director medical writing in room during exam documented in this encounterSumma [id number] NoteHPI: Uzma Mcdonald is a pleasant 54 y.o. female who presents in consultation from Dr. Persaud for further evaluation and management of left pelvic mass. She initiallypresented with symptoms of a UTI about a month ago. Last Wednesday had severe pain in left flank and pelvis, with frequency. She states the pain was so bad that she had to go to the emergency room. She was placed on pain medicine and the pain has subsided. Still does have some discomfort in her left lower pelvis. Also feeling of bloating and fullness. Associated urinary frequency. . This showed an 8.1 cm complex left adnexal mass subsequently underwent pelvic ultrasound that does show a 10.5 cm complex left adnexal mass. No ascites was noted. No other adenopathy noted. The patient is status post supracervical hysterectomy with RSO in the past. 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 Denies any history of DVT or pulmonary embolism Past Medical History: Diagnosis Date Anemia due to chronic blood loss Atherosclerosis of coronary artery without angina pectoris Cardiac murmur Essential hypertension Gastric reflux High cholesterol History of blood transfusion History of echocardiogram History of non-ST elevation myocardial infarction (NSTEMI) Kidney stones Menorrhagia Postoperative pain Shortness of breath on exertion Uterine fibroid Past Surgical History: Procedure Laterality Date CATARACT EXTRACTION Bilateral CHOLECYSTECTOMY CORONARY STENT PLACEMENT 03/31/2021 HYSTERECTOMY TUBAL LIGATION RSO Family History Problem Relation Name Age of Onset Kidney disease Father Breast cancer Father's Sister late 50's, early 60's No other cancers Social History Socioeconomic History Marital status: Unknown Tobacco Use Smoking status: Every Day Types: Cigarettes Smokeless tobacco: Never Substance and Sexual Activity Alcohol use: Never Drug use: Never Sexual activity: Not Currently Social Drivers of Health Financial Resource Strain: Low Risk (01/24/2023) Received from [facility] Overall Financial Resource Strain (CARDIA) Difficulty of Paying Living Expenses: Not very hard Food Insecurity: No Food Insecurity (01/24/2023) Received from [facility] Hunger Vital Sign Worried About Running Out of Food in the Last Year: Never true Ran Out of Food in the Last Year: Never true Transportation Needs: No Transportation Needs (01/24/2023) Received from [facility] PRAPARE - Transportation Lack of Transportation (Medical): No Lack of Transportation (Non-Medical): No Physical Activity: Insufficiently Active (01/24/2023) Received from [facility] Exercise Vital Sign Days of Exercise per Week: 2 days Minutes of Exercise per Session: 20 min Stress: Stress Concern Present (01/24/2023) Received from [facility] [employer] - Occupational Stress Questionnaire Feeling of Stress : Rather much Social Connections: Moderately Isolated (01/24/2023) Received from [facility] Social Connection and Isolation Panel [NHANES] Frequency of Communication with Friends and Family: Three times a week Frequency of Social Gatherings with Friends and Family: Never Attends Holiness Services: Never Active Member of Clubs or Organizations: No Marital Status: Housing Stability: Low Risk (01/24/2023) Received from [facility] Housing Stability Vital Sign Unable to Pay for Housing in the Last Year: No Number of Places Lived in the Last Year: 1 Unstable Housing in the Last Year: No Current Outpatient Medications Medication Sig Dispense Refill aspirin 81 MG EC tablet Take 81 mg by mouth daily. atorvastatin (Lipitor) 40 MG tablet Take 40 mg by mouth daily. clopidogrel (Plavix) 75 MG tablet Take 75 mg by mouth daily. losartan (Cozaar) 25 MG tablet Take 25 mg by mouth daily. metoprolol tartrate (Lopressor) 25 MG tablet Take 25 mg by mouth twice a day. sertraline (Zoloft) 50 MG tablet Take 50 mg by mouth daily. No current facility-administered medications for this visit. Allergies as of 01/17/2025 (No Known Allergies) Review of Systems: Review of Systems Gastrointestinal: Positive for abdominal distention and abdominal pain. Genitourinary: Positive for frequency and pelvic pain. Negative for vaginal bleeding and vaginal discharge. BP 122/68 Pulse 69 Ht 1.702 m (5' 7) Wt 107 kg (236 lb 1.6 oz) SpO2 95% BMI 36.98 kg/m? Physical Exam: Physical Exam Vitals and nursing note reviewed. Exam conducted with a business analyst sales operations present. Constitutional: Appearance: She is obese. Cardiovascular: Rate and Rhythm: Normal rate and regular rhythm. Pulmonary: Effort: Pulmonary effort is normal. Breath sounds: Normal breath sounds. Abdominal: General: Abdomen is flat. A surgical scar is present. Palpations: Abdomen is soft. There is mass. Tenderness: There is abdominal tenderness. Comments: (more content not included)...[facility] [id number] Note HPI: Uzma Mcdonald is a pleasant 54 y.o. female who presents in consultation from Dr. Persaud for further evaluation and management of left pelvic mass. She initiallypresented with symptoms of a UTI about a month ago. Last Wednesday had severe pain in left flank and pelvis, with frequency. She states the pain was so bad that she had to go to the emergency room. She was placed on pain medicine and the pain has subsided. Still does have some discomfort in her left lower pelvis. Also feeling of bloating and fullness. Associated urinary frequency. . This showed an 8.1 cm complex left adnexal mass subsequently underwent pelvic ultrasound that does show a 10.5 cm complex left adnexal mass. No ascites was noted. No other adenopathy noted. The patient is status post supracervical hysterectomy with RSO in the past. 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 Denies any history of DVT or pulmonary embolism Past Medical History: Diagnosis Date Anemia due to chronic blood loss Atherosclerosis of coronary artery without angina pectoris Cardiac murmur Essential hypertension Gastric reflux High cholesterol History of blood transfusion History of echocardiogram History of non-ST elevation myocardial infarction (NSTEMI) Kidney stones Menorrhagia Postoperative pain Shortness of breath on exertion Uterine fibroid Past Surgical History: Procedure Laterality Date CATARACT EXTRACTION Bilateral CHOLECYSTECTOMY CORONARY STENT PLACEMENT 03/31/2021 HYSTERECTOMY TUBAL LIGATION RSO Family History Problem Relation Name Age of Onset Kidney disease Father Breast cancer Father's Sister late 50's, early 60's No other cancers Social History Socioeconomic History Marital status: Unknown Tobacco Use Smoking status: Every Day Types: Cigarettes Smokeless tobacco: Never Substance and Sexual Activity Alcohol use: Never Drug use: Never Sexual activity: Not Currently Social Drivers of Health Financial Resource Strain: Low Risk (01/24/2023) Received from [facility] Overall Financial Resource Strain (CARDIA) Difficulty of Paying Living Expenses: Not very hard Food Insecurity: No Food Insecurity (01/24/2023) Received from [facility] Hunger Vital Sign Worried About Running Out of Food in the Last Year: Never true Ran Out of Food in the Last Year: Never true Transportation Needs: No Transportation Needs (01/24/2023) Received from [facility] PRAPARE - Transportation Lack of Transportation (Medical): No Lack of Transportation (Non-Medical): No Physical Activity: Insufficiently Active (01/24/2023) Received from [facility] Exercise Vital Sign Days of Exercise per Week: 2 days Minutes of Exercise per Session: 20 min Stress: Stress Concern Present (01/24/2023) Received from [facility] [employer] - Occupational Stress Questionnaire Feeling of Stress : Rather much Social Connections: Moderately Isolated (01/24/2023) Received from [facility] Social Connection and Isolation Panel [NHANES] Frequency of Communication with Friends and Family: Three times a week Frequency of Social Gatherings with Friends and Family: Never Attends Holiness Services: Never Active Member of Clubs or Organizations: No Marital Status: Housing Stability: Low Risk (01/24/2023) Received from [facility] Housing Stability Vital Sign Unable to Pay for Housing in the Last Year: No Number of Places Lived in the Last Year: 1 Unstable Housing in the Last Year: No Current Outpatient Medications Medication Sig Dispense Refill aspirin 81 MG EC tablet Take 81 mg by mouth daily. atorvastatin (Lipitor) 40 MG tablet Take 40 mg by mouth daily. clopidogrel (Plavix) 75 MG tablet Take 75 mg by mouth daily. losartan (Cozaar) 25 MG tablet Take 25 mg by mouth daily. metoprolol tartrate (Lopressor) 25 MG tablet Take 25 mg by mouth twice a day. sertraline (Zoloft) 50 MG tablet Take 50 mg by mouth daily. No current facility-administered medications for this visit. Allergies as of 01/17/2025 (No Known Allergies) Review of Systems: Review of Systems Gastrointestinal: Positive for abdominal distention and abdominal pain. Genitourinary: Positive for frequency and pelvic pain. Negative for vaginal bleeding and vaginal discharge. BP 122/68 Pulse 69 Ht 1.702 m (5' 7) Wt 107 kg (236 lb 1.6 oz) SpO2 95% BMI 36.98 kg/m? Physical Exam: Physical Exam Vitals and nursing note reviewed. Exam conducted with a business analyst sales operations present. Constitutional: Appearance: She is obese. Cardiovascular: Rate and Rhythm: Normal rate and regular rhythm. Pulmonary: Effort: Pulmonary effort is normal. Breath sounds: Normal breath sounds. Abdominal: General: Abdomen is flat. A surgical scar is present. Palpations: Abdomen is soft. There is mass. Tenderness: There is abdominal tenderness. Comments: (more content not included)...[facility]02-28-2025 Radiology Diagnostic study note [facility] Imaging Services [address] [place] [address] Transvaginal Non- MR#: [id number] Acct: [id number] Name: UZMA MCDONALD Rep #: [id number] : 1970 F 54 From: Jake Canales MD PCP: Dr. David Fink MD Status: REG C LEAH Study:Transvaginal Non- Date of Exam: 01/12/25 Exam# [id number] Ordering Dr: Imani Persaud MD PROCEDURE: TRANSVAGINAL NON- REASON FOR EXAM: Pelvic mass on CT scan. TECHNIQUE: Transvaginal pelvic ultrasound COMPARISON: Comparison is made with prior CT scan dated January 08, 2025. FINDINGS: Measurements: Status post hysterectomy. Status post right oophorectomy. Left Ovary: 10.5 cm x 7.8 cm x 7.4 cm with a volume of 318 mL. Left ovary: Diffuse enlargement of the left ovary. It is heterogeneous with increased blood flow. Aneoplastic process should be ruled out. No large pelvic mass identified. US/Transvaginal Non- IMPRESSION: Status post hysterectomy and right oophorectomy. Heterogeneous enlargement of the left ovary with blood flow. This corresponds with the CT findings.A neoplastic process should be ruled out. Reading Location: [id number] CC: Dr. Imani Persaud MD; Dr. David Fink MD ~ Plant Control Aide: Signed [facility]02-26-2025 Evaluation note* Diagnosis Onset Date Resolution Status Admit Date Pelvic mass inactive December 12:54pm [facility] Work Phone: 1(584) 821-330702-26-2025 Evaluation note* Diagnosis Onset Date Resolution Status Admit Date Pelvic mass inactive December 12:54pm Primary leiomyosarcoma of pelvis acute February 26, 2025 10:59am Encounter for insertion of venous access port acute March 26 1:19pm Primary leiomyosarcoma of pelvis acute March 28, 2025 3 :30pm [employer] Work Phone: 1(258) 887-521402-26-2025 Evaluation note* Diagnosis Onset Date Resolution Status Admit Date Pelvic mass inactive December 12:54pm Primary leiomyosarcoma of pelvis acute February 26, 2025 10:59am Encounter for insertion of venous access port acute March 26 1:19pm Primary leiomyosarcoma of pelvis acute March 28, 2025 3 :30pm Encounter for education acute M ay 2024 1:47pm Primary leiomyosarcoma of pelvis acute April 04, 2025 1 :47pm [facility] Work Phone: 1(485) 285-179802-26-2025 Evaluation note* Diagnosis Onset Date Resolution Status Admit Date Pelvic mass inactive December 12:54pm Primary leiomyosarcoma of pelvis acute February 26, 2025 10:59am Encounter for insertion of venous access port acute March 26 1:19pm Primary leiomyosarcoma of pelvis acute March 28, 2025 3 :30pm Encounter for education acute M ay 2024 1:47pm Primary leiomyosarcoma of pelvis acute April 04, 2025 1 :47pm Essential (primary) hypertension chronic April 18, 2025 1 0:44am High cholesterol chronic April 10:44am Tobacco abuse chronic April 18, 2 025 10:44am History of coronary artery stent placement March 31, 2021 resolved April 18, 2025 1 0:44am Primary leiomyosarcoma of pelvis acute April 19, 2025 8 :09am [facility] [employer] Work Phone: 1([phone]) 793-648202-26-2025 Evaluation note* Diagnosis Onset Date Resolution Status Admit Date Pelvic mass inactive December 12:54pm Primary leiomyosarcoma of pelvis acute February 26, 2025 10:59am Encounter for insertion of venous access port acute March 26 1:19pm Primary leiomyosarcoma of pelvis acute March 28, 2025 3 :30pm Encounter for education acute M ay 2024 1:47pm Primary leiomyosarcoma of pelvis acute April 04, 2025 1 :47pm Essential (primary) hypertension chronic April 18, 2025 1 0:44am High cholesterol chronic April 10:44am Tobacco abuse chronic April 18, 2 025 10:44am History of coronary artery stent placement March 31, 2021 resolved April 18, 2025 1 0:44am Primary leiomyosarcoma of pelvis acute April 19, 2025 8 :09am Primary leiomyosarcoma of pelvis acute April 26, 2025 8:12am [facility] Work Phone: 1(660) 580-4797011870-03-2361 Telephone encounter Note* Telephone Encounter - Nayana Steele MA - 12/25/2024 2:29 PM EST Patient given results and verbalized understanding of instructions given. Nayana Steele MA [facility]02-10-2025 Miscellaneous Notes* Telephone Encounter - Nayana Steele MA - 12/25/2024 2:29 PM EST Patient given results and verbalized understanding of instructions given. Nayana Steele MA * Telephone Encounter - Chace Tobias PA - 12/25/2024 11:48 AM EST Please contact patient and let her know that urine culture revealed no UTI. She needs close follow-up with primary care doctor to ensure resolution of blood in the urine. [facility] Telephone encounter Note * Telephone Encounter - Chace Tobias PA - 12/25/2024 11:48 AM EST Please contact patient and let her know that urine culture revealed no UTI. She needs close follow-up with primary care doctor to ensure resolution of blood in the urine. [facility] Work Phone: 1([phone]) 602-676702-09-2025 NoteHNO ID: [id number] Author: ISAÍAS RIBEIRO APRN.CRACKER AND 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 Service: ? Author Type: Nurse Practitioner Type: Progress Notes Filed: 12/24/2024 14:08 Note Text: Subjective HPI Nontoxic-appearing 54-year-old female presents urgent care chief complaint possible UTI. Duration of symptom 4 days. Associated symptoms burning frequency and urgency. History of UTIs and kidney stones in the past. States this feels like UTI. OTC medications none. Denies any vaginal discharge or itching. No urological abnormalities. No fever body aches chills nausea vomiting abdominal pain today. States does have some slight tenderness over bladder area only. Past medical history prescription medications allergies reviewed. .Patient presents with: Urinary Problem: burning with urination x 4 days PAST MEDICAL HISTORY Diagnosis Date Anemia Essential hypertension Hypothyroidism no meds and last tested 2016 PAST SURGICAL HISTORY Procedure Laterality Date DILATION AND CURETTAGE 1996 LIGATE FALLOPIAN TUBE 1996 PAST SURGICAL HISTORY OF Right 04/19/2020 intraocular lens implant PAST SURGICAL HISTORY OF 03/31/2021 [employer] stent REBEL CORONARY PLAT CHROMIUM BARE METAL STENT SYS [id number], 144 CM 06/26/2014 REMOVAL GALLBLADDER 2013 SUPRACERVICAL ABDL HYSTER W/WO RMVL TUBE OVARY Bilateral 05/28/2022 supracervical hyst, RSO, left salpingectomy for fibroid utereus 3600 gm ALLERGIES Patient has no known allergies. MEDICATIONS albuterol HFA (PROVENTIL HFA, VENTOLIN HFA) 90 mcg/actuation inhaler Inhale 2 Puffs as instructed every 6 hours as needed for wheezing/shortness of breath. atorvastatin (LIPITOR) 40 mg tablet Take 1 tablet by mouth once daily. sertraline (ZOLOFT) 50 mg tablet Take 1 tablet by mouth once daily. Multivitamins chew Take by mouth. With iron aspirin, enteric coated (ASPIRIN, ENTERIC COATED) 81 mg EC tablet Take 81 mg by mouth once daily. clopidogrel (PLAVIX) 75 mg tablet Take 75 mg by mouth once daily. losartan (COZAAR) 25 mg tablet Take 25 mg by mouth once daily. metoprolol tartrate, short acting, (LOPRESSOR) 25 mg tablet Take 25 mg by mouth twice daily. fluticasone (FLONASE) 50 mcg/actuation nasal spray Use 2 Sprays in each nostril once daily. Rinse mouth after use. (Patient not taking: Reported on 04/18/2024) FAMILY HISTORY Problem Relation Age of Onset Heart Father Kidney Disease Father No Known Problems Brother No Known Problems Maternal Grandmother No Known Problems Maternal Grandfather No Known Problems Paternal Grandmother No Known Problems Paternal Grandfather Social History Tobacco Use Smoking status: Every Day Smokeless tobacco: Never Vaping Use Vaping status: Former Substance Use Topics Alcohol use: Not Currently Drug use: Not Currently BP 126/68 Pulse 80 Temp 36.6 ?C (97.8 ?F) Resp 18 Wt 110.6 kg (243 lb 13.3 oz) LMP 05/20/2021 (Exact Date) SpO2 96% BMI 38.19 kg/m? Review of Systems Constitutional: Negative for chills, fever and malaise/fatigue. Cardiovascular: Negative for chest pain. Gastrointestinal: Negative for abdominal pain, constipation, diarrhea, nausea and vomiting. Genitourinary: Positive for dysuria, frequency and urgency. Negative for flank pain and hematuria. Musculoskeletal: Negative for myalgias. Objective Physical Exam Vitals and nursing note reviewed. Constitutional: General: She is not in acute distress. Appearance: She is not diaphoretic. HENT: Head: Jaw: No trismus. Right Ear: Hearing normal. No decreased hearing noted. No drainage, swelling or tenderness. Tympanic membrane is not perforated, erythematous or bulging. Left Ear: Hearing normal. No decreased hearing noted. No drainage, swelling or tenderness. Tympanic membrane is not perforated, erythematous or bulging. Mouth/Throat: Pharynx: Uvula midline. No uvula swelling. Tonsils: No tonsillar abscesses. Cardiovascular: Rate and Rhythm: Normal rate and regular rhythm. Pulses: Normal pulses. Pulmonary: Effort: Pulmonary effort is normal. No respiratory distress. Breath sounds: Normal breath sounds. Chest: Chest wall: No tenderness. Abdominal: General: Bowel sounds are normal. There is no distension. Palpations: Abdomen is soft. Abdomen is not rigid. Tenderness: There is abdominal tenderness in the suprapubic area. There is no right CVA tenderness, left CVA tenderness, guarding or rebound. Negative signs include Chappell's sign and McBurney's sign. Comments: Mild Musculoskeletal: General: No tenderness. Lymphadenopathy: Head: Right side of head: No submental, submandibular, tonsillar, preauricular, posterior auricular or occipital adenopathy. Left side of head: No submental, submandibular, tonsillar, preauricular, posterior auricular or occipital adenopathy. Cervical: Right cervical: No superficial or posterior cervical adenopathy. Left cervical: No superficial or posterior cervical adenopathy. Skin: G (more content not included)...[facility]02-09-2025 History of Present illness Narrative* Isaías Ribeiro APRN.CRACKER AND 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 - 12/24/2024 1:53 PM EST Subjective HPI Nontoxic-appearing 54-year-old female presents urgent care chief complaint possible UTI. Duration of symptom 4 days. Associated symptoms burning frequency and urgency. History of UTIs and kidney stones in the past. States this feels like UTI. OTC medications none. Denies any vaginal discharge or itching. No urological abnormalities. No fever body aches chills nausea vomiting abdominal pain today.States does have some slight tenderness over bladder area only. Past medical history prescription medications allergies reviewed. .Patient presents with: Urinary Problem: burning with urination x 4 days PAST MEDICAL HISTORY Diagnosis Date Anemia Essential hypertension Hypothyroidism no meds and last tested 2016 PAST SURGICAL HISTORY Procedure Laterality Date DILATION & CURETTAGE 1996 LIGATE FALLOPIAN TUBE 1996 PAST SURGICAL HISTORY OF Right 04/19/2020 intraocular lens implant PAST SURGICAL HISTORY OF 03/31/2021 [employer] stent REBEL CORONARY PLAT CHROMIUM BARE METAL STENT SYS [id number], 144 CM 06/26/2014 REMOVAL GALLBLADDER 2013 SUPRACERVICAL ABDL HYSTER W/WO RMVL TUBE OVARY Bilateral 05/28/2022 supracervical hyst, RSO, left salpingectomy for fibroid utereus 3600 gm ALLERGIES Patient has no known allergies. MEDICATIONS albuterol HFA (PROVENTIL HFA, VENTOLIN HFA) 90 mcg/actuation inhaler Inhale 2 Puffs as instructed every 6 hours as needed for wheezing/shortness of breath. atorvastatin (LIPITOR) 40 mg tablet Take 1 tablet by mouth once daily. sertraline (ZOLOFT) 50 mg tablet Take 1 tablet by mouth once daily. Multivitamins chew Take by mouth. With iron aspirin, enteric coated (ASPIRIN, ENTERIC COATED) 81 mg EC tablet Take 81 mg by mouth once daily. clopidogrel (PLAVIX) 75 mg tablet Take 75 mg by mouth once daily. losartan (COZAAR) 25 mg tablet Take 25 mg by mouth once daily. metoprolol tartrate, short acting, (LOPRESSOR) 25 mg tablet Take 25 mg by mouth twice daily. fluticasone (FLONASE) 50 mcg/actuation nasal spray Use 2 Sprays in each nostril once daily. Rinse mouth after use. (Patient not taking: Reported on 04/18/2024) FAMILY HISTORY Problem Relation Age of Onset Heart Father Kidney Disease Father No Known Problems Brother No Known Problems Maternal Grandmother No Known Problems Maternal Grandfather No Known Problems Paternal Grandmother No Known Problems Paternal Grandfather Social History Tobacco Use Smoking status: Every Day Smokeless tobacco: Never Vaping Use Vaping status: Former Substance Use Topics Alcohol use: Not Currently Drug use: Not Currently BP 126/68 Pulse 80 Temp 36.6 C (97.8 F) Resp 18 Wt 110.6 kg (243 lb 13.3 oz) LMP 05/20/2021 (Exact Date) SpO2 96% BMI 38.19 kg/m Review of Systems Constitutional: Negative for chills, fever and malaise/fatigue. Cardiovascular: Negative for chest pain. Gastrointestinal: Negative for abdominal pain, constipation, diarrhea, nausea and vomiting. Genitourinary: Positive for dysuria, frequency and urgency. Negative for flank pain and hematuria. Musculoskeletal: Negative for myalgias. Objective Physical Exam Vitals and nursing note reviewed. Constitutional: General: She is not in acute distress. Appearance: She is not diaphoretic. HENT: Head: Jaw: No trismus. Right Ear: Hearing normal. No decreased hearing noted. No drainage, swelling or tenderness. Tympanic membrane is not perforated, erythematous or bulging. Left Ear: Hearing normal. No decreased hearing noted. No drainage, swelling or tenderness. Tympanicmembrane is not perforated, erythematous or bulging. Mouth/Throat: Pharynx: Uvula midline. No uvula swelling. Tonsils: No tonsillar abscesses. Cardiovascular: Rate and Rhythm: Normal rate and regular rhythm. Pulses: Normal pulses. Pulmonary: Effort: Pulmonary effort is normal. No respiratory distress. Breath sounds: Normal breath sounds. Chest: Chest wall: No tenderness. Abdominal: General: Bowel sounds are normal. There is no distension. Palpations: Abdomen is soft. Abdomen is not rigid. Tenderness: There is abdominal tenderness in the suprapubic area. There is no right CVA tenderness,left CVA tenderness, guarding or rebound. Negative signs include Chappell's sign and McBurney's sign. Comments: Mild Musculoskeletal: General: No tenderness. Lymphadenopathy: Head: Right side of head: No submental, submandibular, tonsillar, preauricular, posterior auricular or occipital adenopathy. Left side of head: No submental, submandibular, tonsillar, preauricular, posterior auricular or occipital adenopathy. Cervical: Right cervical: No superficial or posterior cervical adenopathy. Left cervical: No superficial or posterior cervical adenopathy. Skin: General: Skin is warm and dry. Findings: No rash. Neurological: Mental Status: She is alert and oriented to person, place, and time. ASSESSMENT/PLAN: 1. Burning with urination - ICD9: 788.1, ICD10: R30.0 - UA DIP, URINE (POC) - BACTERIAL CULTURE, URINE Urine positive for trace leuks moderate blood 100 protein. Treat for acute cystitis. Placed on Keflex. Patient was educated on supportive therapies. Patient will follow up with primary care provider as needed. Patient was instructed to immediately proceed to emergency room for any new, worsening, or symptoms lasting longer than anticipated. The patient's clinical presentation is otherwise unremarkable at this time. Based on exam and clinical finding, the patient is stable for discharge. Plan of care was discussed with patient. Patient verbalizes understanding and agrees to plan of care. This note was generated using [employer] software. It may contain errors in wording, punctuation, or spelling. Isaías Ribeiro APRN.JAIRO documented [facility]Tr[facility] Telephone encounter Note * Telephone Encounter - Zoey Pineda MA - 10/09/2024 3:53 PM EST Pt reviewed message from PCP regarding mammogram results. PCP sent pt message to pt on 10/03/24, was reviewed by pt same day. Zoey Pineda MA [facility]11-25-2024 Miscellaneous Notes* Telephone Encounter - Zoey Pineda MA - 10/09/2024 3:53 PM EST Pt reviewed message from PCP regarding mammogram results. PCP sent pt message to pt on 10/03/24, was reviewed by pt same day. Zoey Pineda MA * Telephone Encounter - Ann Zacarias RN - 10/03/2024 9:49 AM EST Called and left a voicemail for the Patient to call back and ask for a nurse to receive the providers message. Ann Zacarias RN * Telephone Encounter - Susy Smith APRN.CNP - 10/03/2024 8:15 AM EST Please let patient know her mammogram is negative. Patient should continue with annual screenings. documented in this encounterTr[facility]11-19-2024 Telephone encounter Note * Telephone Encounter - Ann Zacarias RN - 10/03/2024 9:49 AM EST Called and left a voicemail for the Patient to call back and ask for a nurse to receive the providers message. Ann Zacarias RN [facility]11-19-2024 Telephone encounter Note* Telephone Encounter - Susy Smith APRN.CNP - 10/03/2024 8:15 AM EST Please let patient know her mammogram is negative. Patient should continue with annual screenings. [facility] Work Phone: 1([phone]) 848-660111-15-2024 History of Present illness Narrative* Elizabeth Elizondo Mammo Tech - 09/29/2024 1:30 PM EST Radiology Service Progress Note PATIENT NAME: Uzma Mcdonald DATE OF SERVICE: September 29, 2024 TIME: 1:54 PM PATIENT IDENTITY VERIFICATION COMPLETED USING TWO (2) IDENTIFIERS: Name and Date of confirmedby patient verbally. FALL SCREENING: Has the patient had 2 falls in the last year or 1 fall with injury or currently using an Ambulatory Assistive Device (Walker, Cane, Wheelchair, Crutches, etc.)? No PATIENT GENDER DATA: Female. status: : No status: NO. PATIENT RELEVANT IMPLANT DATA REVIEWED: Not Applicable PATIENT PRESENTS WITH AN IMPLANTABLE OR ATTACHED COASTAL AND ESTUARY SPECIALIST: No RADIOLOGY DEPARTMENT: Mammography PERIPHERAL IV DATA: Not applicable SIGNED BY: Chiqui Kilgore September 29, 2024 1:54 PM documented in this encounterTrumbull [facility] Hospital11-15-2024 NoteHNO ID: [id number] Author: ELIZABETH ELIZONDO Mammo Tech Service: ? Author Type: Automotive Parts Counter Associate Type: Progress Notes Filed: 09/29/2024 13:54 Note Text: Radiology Service Progress Note PATIENT NAME: Uzma Mcdonald DATE OF SERVICE: September 29, 2024 TIME: 1:54 PM PATIENT IDENTITY VERIFICATION COMPLETED USING TWO (2) IDENTIFIERS: Name and Date of confirmed by patient verbally. FALL SCREENING: Has the patient had 2 falls in the last year or 1 fall with injury or currently using an Ambulatory Assistive Device (Walker, Cane, Wheelchair, Crutches, etc.)? No PATIENT GENDER DATA: Female. status: : No status: NO. PATIENT RELEVANT IMPLANT DATA REVIEWED: Not Applicable PATIENT PRESENTS WITH AN IMPLANTABLE OR ATTACHED COASTAL AND ESTUARY SPECIALIST: No RADIOLOGY DEPARTMENT: Mammography PERIPHERAL IV DATA: Not applicable SIGNED BY: Chiqui Kilgore September 29, 2024 1:54 [facility]11-11-2024 Telephone encounter Note* Telephone Encounter - Susy Smith APRN.CNP - 09/25/2024 2:22 PM EST Ordered [facility]11-11-2024 Miscellaneous Notes* Telephone Encounter - Susy Smith APRN.CNP - 09/25/2024 2:22 PM EST Ordered * Telephone Encounter - Elizabeth Elizondo Mammo Tech - 09/25/2024 1:40 PM EST Could we have a mammogram screening order STAT! Pt schedule today at 1450. Thanks a million documented in this encounterTr[facility]11-11-2024 Telephone encounter Note * Telephone Encounter - Elizabeth Elizondo Mammo Tech - 09/25/2024 1:40 PM EST Could we have a mammogram screening order STAT! Pt schedule today at 1450. Thanks a million [facility]09-18-2024 Telephone encounter Note* Telephone Encounter - Hazel Marshall LPN - 08/02/2024 7:57 PM EDT Patient notified.Hazel Marshall LPN [facility]09-18-2024 Miscellaneous Notes* Telephone Encounter - Hazel Marshall LPN - 08/02/2024 7:57 PM EDT Patient notified.Hazel Marshall LPN * Telephone Encounter - Isaías Ribeiro APRN.CRACKER AND 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 - 08/02/2024 7:51 PM EDT Please inform patient that chest x-ray is negative. Continue plan of care as discussed during visit. documented in this encounterTrumbull [facility] Hospital09-18-2024 Telephone encounter Note * Telephone Encounter - Isaías Ribeiro APRN.CNP - 08/02/2024 7:51 PM EDT Please inform patient that chest x-ray is negative. Continue plan of care as discussed during visit. [facility]09-18-2024 History of Present illness Narrative* Keshia Manriquez RT(R) - 08/02/2024 7:10 PM EDT Radiology Service Progress Note PATIENT NAME: Uzma Mcdonald DATE OF SERVICE: August 02, 2024 TIME: 7:17 PM PATIENT IDENTITY VERIFICATION COMPLETED USING TWO (2) IDENTIFIERS: Name and Date of confirmedby patient verbally. FALL SCREENING: Has the patient had 2 falls in the last year or 1 fall with injury or currently using an Ambulatory Assistive Device (Walker, Cane, Wheelchair, Crutches, etc.)? No PATIENT GENDER DATA: Female. status: : No status: NO. PATIENT RELEVANT IMPLANT DATA REVIEWED: Yes PATIENT PRESENTS WITH AN IMPLANTABLE OR ATTACHED COASTAL AND ESTUARY SPECIALIST: No RADIOLOGY DEPARTMENT: General X-ray: Exam(s) Completed: Chest X-Ray PERIPHERAL IV DATA: Not applicable SIGNED BY: RT Sera(Christal) August 02, 2024 7:17 PM documented in this encounterTrumbull [facility] Hospital09-18-2024 NoteHNO ID: [id number] Author: KESHIA MANRIQUEZ RT(R) Service: ? Author Type: Automotive Parts Counter Associate Type: Progress Notes Filed: 08/02/2024 19:17 Note Text: Radiology Service Progress Note PATIENT NAME: Uzma Mcdonald DATE OF SERVICE: August 02, 2024 TIME: 7:17 PM PATIENT IDENTITY VERIFICATION COMPLETED USING TWO (2) IDENTIFIERS: Name and Date of confirmed by patient verbally. FALL SCREENING: Has the patient had 2 falls in the last year or 1 fall with injury or currently using an Ambulatory Assistive Device (Walker, Cane, Wheelchair, Crutches, etc.)? No PATIENT GENDER DATA: Female. status: : No status: NO. PATIENT RELEVANT IMPLANT DATA REVIEWED: Yes PATIENT PRESENTS WITH AN IMPLANTABLE OR ATTACHED COASTAL AND ESTUARY SPECIALIST: No RADIOLOGY DEPARTMENT: General X-ray: Exam(s) Completed: Chest X-Ray PERIPHERAL IV DATA: Not applicable SIGNED BY: RT Sera(R) August 02, 2024 7:17 [facility]09-18-2024 NoteHNO ID: [id number] Author: ISAÍAS RIBEIRO APRN.CRACKER AND 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 Service: ? Author Type: Nurse Practitioner Type: Progress Notes Filed: 08/02/2024 19:54 Note Text: Subjective HPI Nontoxic-appearing female presents urgent care chief complaint cough chest congestion shortness of breath and wheezing at times. Duration of symptoms 1 week. Associated symptoms listed above. No known sick contacts. History of bronchitis this feels similar. Risk factor smoking. Denies any fevers today hemoptysis pleuritic pain nausea vomiting chest pain headaches dizziness change in bowel or bladder habits. Past medical history prescription medications allergies reviewed. .Patient presents with: Cough: Chest congestion and tightness, SOB, wheezing x1 week PAST MEDICAL HISTORY Diagnosis Date Anemia Essential hypertension Hypothyroidism no meds and last tested 2016 PAST SURGICAL HISTORY Procedure Laterality Date DILATION AND CURETTAGE 1996 LIGATE FALLOPIAN TUBE 1996 PAST SURGICAL HISTORY OF Right 04/19/2020 intraocular lens implant PAST SURGICAL HISTORY OF 03/31/2021 [employer] stent REBEL CORONARY PLAT CHROMIUM BARE METAL STENT SYS [id number], 144 CM 06/26/2014 REMOVAL GALLBLADDER 2013 SUPRACERVICAL ABDL HYSTER W/WO RMVL TUBE OVARY Bilateral 05/28/2022 supracervical hyst, RSO, left salpingectomy for fibroid utereus 3600 gm ALLERGIES Patient has no known allergies. MEDICATIONS albuterol HFA (PROVENTIL HFA, VENTOLIN HFA) 90 mcg/actuation inhaler Inhale 2 Puffs as instructed every 4 hours as needed for wheezing/shortness of breath. atorvastatin (LIPITOR) 40 mg tablet Take 1 tablet by mouth once daily. sertraline (ZOLOFT) 50 mg tablet Take 1 tablet by mouth once daily. fluticasone (FLONASE) 50 mcg/actuation nasal spray Use 2 Sprays in each nostril once daily. Rinse mouth after use. (Patient not taking: Reported on 04/18/2024) Multivitamins chew Take by mouth. With iron aspirin, enteric coated (ASPIRIN, ENTERIC COATED) 81 mg EC tablet Take 81 mg by mouth once daily. clopidogrel (PLAVIX) 75 mg tablet Take 75 mg by mouth once daily. losartan (COZAAR) 25 mg tablet Take 25 mg by mouth once daily. metoprolol tartrate, short acting, (LOPRESSOR) 25 mg tablet Take 25 mg by mouth twice daily. FAMILY HISTORY Problem Relation Age of Onset Heart Father Kidney Disease Father No Known Problems Brother No Known Problems Maternal Grandmother No Known Problems Maternal Grandfather No Known Problems Paternal Grandmother No Known Problems Paternal Grandfather Social History Tobacco Use Smoking status: Every Day Smokeless tobacco: Never Vaping Use Vaping status: Former Substance Use Topics Alcohol use: Not Currently Drug use: Not Currently BP 119/76 Pulse 93 Temp 36.7 ?C (98 ?F) Resp 20 Wt 111.5 kg (245 lb 13 oz) LMP 05/20/2021 (Exact Date) SpO2 94% BMI 38.50 kg/m? Review of Systems Constitutional: Negative for chills, fever and malaise/fatigue. HENT: Positive for congestion. Negative for ear discharge, ear pain, sinus pain and sore throat. Eyes: Negative for blurred vision, pain, discharge and redness. Respiratory: Positive for cough, sputum production, shortness of breath and wheezing. Negative for hemoptysis and stridor. Cardiovascular: Negative for chest pain. Gastrointestinal: Negative for abdominal pain, diarrhea, nausea and vomiting. Musculoskeletal: Negative for myalgias. Skin: Negative for itching and rash. Neurological: Negative for dizziness and headaches. Objective Physical Exam Constitutional: General: She is not in acute distress. Appearance: She is not diaphoretic. HENT: Head: Normocephalic. Jaw: No trismus, tenderness, swelling or pain on movement. Mouth/Throat: Mouth: Mucous membranes are moist. Pharynx: Oropharynx is clear. Uvula midline. No pharyngeal swelling, oropharyngeal exudate, posterior oropharyngeal erythema or uvula swelling. Eyes: Conjunctiva/sclera: Conjunctivae normal. Pupils: Pupils are equal, round, and reactive to light. Cardiovascular: Rate and Rhythm: Normal rate and regular rhythm. Heart sounds: Normal heart sounds. Pulmonary: Effort: Pulmonary effort is normal. No tachypnea, accessory muscle usage or respiratory distress. Breath sounds: No stridor. Wheezing and rhonchi present. No rales. Abdominal: General: There is no distension. Palpations: Abdomen is soft. Tenderness: There is no abdominal tenderness. There is no guarding or rebound. Musculoskeletal: Cervical back: Normal range of motion and neck supple. No edema, erythema, rigidity or tenderness. No pain with movement. Normal range of motion. Lymphadenopathy: Cervical: No cervical adenopathy. Skin: General: Skin is warm and dry. Neurological: Mental Status: She is alert and oriented to person, place, and time. ASSESSMENT/PLAN: 1. Acute cough - ICD9: 786.2, ICD10: R05.1 (primary diagnosis) - XR CHEST 2V FRONTAL/LAT 2. Bronchi (more content not included)...[facility]09-18-2024 History of Present illness Narrative* Isaías Ribeiro, [facility] - 08/02/2024 6:55 PM EDT Subjective HPI Nontoxic-appearing female presents urgent care chief complaint cough chest congestion shortness of breath and wheezing at times. Duration of symptoms 1 week. Associated symptoms listed above. No known sick contacts. History of bronchitis this feels similar. Risk factor smoking. Denies any fevers today hemoptysis pleuritic pain nausea vomiting chest pain headaches dizziness change in bowel or bladder habits. Past medical history prescription medications allergies reviewed. .Patient presents with: Cough: Chest congestion and tightness, SOB, wheezing x1 week PAST MEDICAL HISTORY Diagnosis Date Anemia Essential hypertension Hypothyroidism no meds and last tested 2016 PAST SURGICAL HISTORY Procedure Laterality Date DILATION & CURETTAGE 1996 LIGATE FALLOPIAN TUBE 1996 PAST SURGICAL HISTORY OF Right 04/19/2020 intraocular lens implant PAST SURGICAL HISTORY OF 03/31/2021 [employer] stent REBEL CORONARY PLAT CHROMIUM BARE METAL STENT SYS [id number], 144 CM 06/26/2014 REMOVAL GALLBLADDER 2013 SUPRACERVICAL ABDL HYSTER W/WO RMVL TUBE OVARY Bilateral 05/28/2022 supracervical hyst, RSO, left salpingectomy for fibroid utereus 3600 gm ALLERGIES Patient has no known allergies. MEDICATIONS albuterol HFA (PROVENTIL HFA, VENTOLIN HFA) 90 mcg/actuation inhaler Inhale 2 Puffs as instructed every 4 hours as needed for wheezing/shortness of breath. atorvastatin (LIPITOR) 40 mg tablet Take 1 tablet by mouth once daily. sertraline (ZOLOFT) 50 mg tablet Take 1 tablet by mouth once daily. fluticasone (FLONASE) 50 mcg/actuation nasal spray Use 2 Sprays in each nostril once daily. Rinse mouth after use. (Patient not taking: Reported on 04/18/2024) Multivitamins chew Take by mouth. With iron aspirin, enteric coated (ASPIRIN, ENTERIC COATED) 81 mg EC tablet Take 81 mg by mouth once daily. clopidogrel (PLAVIX) 75 mg tablet Take 75 mg by mouth once daily. losartan (COZAAR) 25 mg tablet Take 25 mg by mouth once daily. metoprolol tartrate, short acting, (LOPRESSOR) 25 mg tablet Take 25 mg by mouth twice daily. FAMILY HISTORY Problem Relation Age of Onset Heart Father Kidney Disease Father No Known Problems Brother No Known Problems Maternal Grandmother No Known Problems Maternal Grandfather No Known Problems Paternal Grandmother No Known Problems Paternal Grandfather Social History Tobacco Use Smoking status: Every Day Smokeless tobacco: Never Vaping Use Vaping status: Former Substance Use Topics Alcohol use: Not Currently Drug use: Not Currently BP 119/76 Pulse 93 Temp 36.7 C (98 F) Resp 20 Wt 111.5 kg (245 lb 13 oz) LMP 05/20/2021 (Exact Date) SpO2 94% BMI 38.50 kg/m Review of Systems Constitutional: Negative for chills, fever and malaise/fatigue. HENT: Positive for congestion. Negative for ear discharge, ear pain, sinus pain and sore throat. Eyes: Negative for blurred vision, pain, discharge and redness. Respiratory: Positive for cough, sputum production, shortness of breath and wheezing. Negative for hemoptysis and stridor. Cardiovascular: Negative for chest pain. Gastrointestinal: Negative for abdominal pain, diarrhea, nausea and vomiting. Musculoskeletal: Negative for myalgias. Skin: Negative for itching and rash. Neurological: Negative for dizziness and headaches. Objective Physical Exam Constitutional: General: She is not in acute distress. Appearance: She is not diaphoretic. HENT: Head: Normocephalic. Jaw: No trismus, tenderness, swelling or pain on movement. Mouth/Throat: Mouth: Mucous membranes are moist. Pharynx: Oropharynx is clear. Uvula midline. No pharyngeal swelling, oropharyngeal exudate, posterior oropharyngeal erythema or uvula swelling. Eyes: Conjunctiva/sclera: Conjunctivae normal. Pupils: Pupils are equal, round, and reactive to light. Cardiovascular: Rate and Rhythm: Normal rate and regular rhythm. Heart sounds: Normal heart sounds. Pulmonary: Effort: Pulmonary effort is normal. No tachypnea, accessory muscle usage or respiratory distress. Breath sounds: No stridor. Wheezing and rhonchi present. No rales. Abdominal: General: There is no distension. Palpations: Abdomen is soft. Tenderness: There is no abdominal tenderness. There is no guarding or rebound. Musculoskeletal: Cervical back: Normal range of motion and neck supple. No edema, erythema, rigidity or tenderness. No pain with movement. Normal range of motion. Lymphadenopathy: Cervical: No cervical adenopathy. Skin: General: Skin is warm and dry. Neurological: Mental Status: She is alert and oriented to person, place, and time. ASSESSMENT/PLAN: 1. Acute cough - ICD9: 786.2, ICD10: R05.1 (primary diagnosis) - XR CHEST 2V FRONTAL/LAT 2. Bronchitis - ICD9: 490, ICD10: J40 IMPRESSION: No acute radiographic abnormality. Chest x-ray negative. Will cover with antibiotics prednisone and albuterol inhaler. Red flags ER evaluation discussed. Patient was educated on supportive therapies. Patient will follow up with primary care provider 2 to 3 days reevaluation. Patient was instructed to immediately proceed to emergencyroom for any new, worsening, or symptoms lasting longer than anticipated. The patient's clinical presentation is otherwise unremarkable at this time. Based on exam and clinical finding, the patient is stable for discharge. Plan of care was discussed with patient. Patient verbalizes understanding and agrees to plan of care. This note was generated using [email or web address] software. It may contain errors in wording, punctuation, or spelling. Isaías Ribeiro APRN.JAIRO documented [facility] NoteHNO ID: [id number] Author: JUANA LINTON APRN.CNP Service: ? Author Type: Nurse Practitioner Type: Progress Notes Filed: 04/18/2024 13:22 Note Text: This note was created using [employer]. Subjective Uzma Mcdonald is a 53 year old female. 53 year old female with PMH CAD, HTN, thyroid, tobacco usage. Acute onset one month ago +cough Harsh and non productive. +sore throat +congestion +post nasal drainage Denies tightness in chest Denies dyspnea Denies CP Denies fever or chills. Cough seems worse at night. She was seen 03/23/24 for similar, at that time she had x 4 days of symptoms Was provided Prednisone and albuterol inhaler. Endorses mild relief of symptoms. Has used Claritin, Jenny, and air humidifier. Has used wedge. The history is provided by the patient. No hourly associate was used. URI She complains of cough. There is no chest tightness, difficulty breathing, frequent throat clearing, hemoptysis, hoarse voice, shortness of breath, sputum production or wheezing. This is a new problem. The current episode started 1 to 4 weeks ago. The problem occurs constantly. The problem has been gradually worsening. The cough is non-productive. Associated symptoms include ear congestion, nasal congestion, postnasal drip and a sore throat. Pertinent negatives include no appetite change, chest pain, dyspnea on exertion, ear pain, fever, headaches, heartburn, malaise/fatigue, myalgias, orthopnea, PND, rhinorrhea, sneezing, sweats, trouble swallowing or weight loss. Her symptoms are aggravated by nothing. Her symptoms are alleviated by nothing. She reports no improvement on treatment. Risk factors for lung disease include smoking/tobacco exposure. There is no history of asthma, bronchiectasis, bronchitis, COPD, emphysema or pneumonia. PAST MEDICAL HISTORY Diagnosis Date Anemia Essential hypertension Hypothyroidism no meds and last tested 2016 PAST SURGICAL HISTORY Procedure Laterality Date DILATION AND CURETTAGE 1996 LIGATE FALLOPIAN TUBE 1996 PAST SURGICAL HISTORY OF Right 04/19/2020 intraocular lens implant PAST SURGICAL HISTORY OF 03/31/2021 [employer] stent REBEL CORONARY PLAT CHROMIUM BARE METAL STENT SYS [id number], 144 CM 06/26/2014 REMOVAL GALLBLADDER 2013 SUPRACERVICAL ABDL HYSTER W/WO RMVL TUBE OVARY Bilateral 05/28/2022 supracervical hyst, RSO, left salpingectomy for fibroid utereus 3600 gm ALLERGIES Patient has no known allergies. MEDICATIONS albuterol HFA (PROVENTIL HFA, VENTOLIN HFA) 90 mcg/actuation inhaler Inhale 2 Puffs as instructed every 4 hours as needed for wheezing/shortness of breath. atorvastatin (LIPITOR) 40 mg tablet Take 1 tablet by mouth once daily. sertraline (ZOLOFT) 50 mg tablet Take 1 tablet by mouth once daily. Multivitamins chew Take by mouth. With iron aspirin, enteric coated (ASPIRIN, ENTERIC COATED) 81 mg EC tablet Take 81 mg by mouth once daily. clopidogrel (PLAVIX) 75 mg tablet Take 75 mg by mouth once daily. losartan (COZAAR) 25 mg tablet Take 25 mg by mouth once daily. metoprolol tartrate, short acting, (LOPRESSOR) 25 mg tablet Take 25 mg by mouth twice daily. doxycycline monohydrate 100 mg tablet Take 1 tablet by mouth two times a day for 7 days. fluticasone (FLONASE) 50 mcg/actuation nasal spray Use 2 Sprays in each nostril once daily. Rinse mouth after use. (Patient not taking: Reported on 04/18/2024) FAMILY HISTORY Problem Relation Age of Onset Heart Father Kidney Disease Father No Known Problems Brother No Known Problems Maternal Grandmother No Known Problems Maternal Grandfather No Known Problems Paternal Grandmother No Known Problems Paternal Grandfather Social History Tobacco Use Smoking status: Every Day Smokeless tobacco: Never Vaping Use Vaping Use: Former Substance Use Topics Alcohol use: Not Currently Drug use: Not Currently Review of Systems Constitutional: Negative for appetite change, fever, malaise/fatigue and weight loss. HENT: Positive for congestion, postnasal drip, sinus pressure and sore throat. Negative for ear pain, hoarse voice, rhinorrhea, sneezing and trouble swallowing. Eyes: Negative for pain, discharge and itching. Respiratory: Positive for cough. Negative for apnea, hemoptysis, sputum production, choking, chest tightness, shortness of breath and wheezing. Cardiovascular: Negative for chest pain, dyspnea on exertion and PND. Gastrointestinal: Negative for abdominal pain, heartburn, nausea, rectal pain and vomiting. Musculoskeletal: Negative for myalgias. Skin: Negative for color change, pallor and rash. Allergic/Immunologic: Negative for environmental allergies, food allergies and immunocompromised state. Neurological: Negative for dizziness, facial asymmetry and headaches. Hematological: Negative for adenopathy. Does not bruise/bleed easily. Psychiatric/Behavioral: Negative for agitation and behavioral problems. Objective (more content not included)...[facility]06-04-2024 History of Present illness Narrative* Juana Linton APRN.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 - 04/18/2024 12:20 PM EDT This note was created using [employer]al[employer]. Subjective Uzma Mcdonald is a 53 year old female. 53 year old female with PMH CAD, HTN, thyroid, tobacco usage. Acute onset one month ago +cough Harsh and non productive. +sore throat +congestion +post nasal drainage Denies tightness in chest Denies dyspnea Denies CP Denies fever or chills. Cough seems worse at night. She was seen 03/23/24 for similar, at that time she had x 4 days of symptoms Was provided Prednisone and albuterol inhaler. Endorses mild relief of symptoms. Has used Claritin, Jenny, and air humidifier. Has used wedge. The history is provided by the patient. No hourly associate was used. URI She complains of cough. There is no chest tightness, difficulty breathing, frequent throat clearing, hemoptysis, hoarse voice, shortness of breath, sputum production or wheezing. This is a new problem. The current episode started 1 to 4 weeks ago. The problem occurs constantly. The problem has beengradually worsening. The cough is non-productive. Associated symptoms include ear congestion, nasalcongestion, postnasal drip and a sore throat. Pertinent negatives include no appetite change, chestpain, dyspnea on exertion, ear pain, fever, headaches, heartburn, malaise/fatigue, myalgias, orthopnea, PND, rhinorrhea, sneezing, sweats, trouble swallowing or weight loss. Her symptoms are aggravated by nothing. Her symptoms are alleviated by nothing. She reports no improvement on treatment. Riskfactors for lung disease include smoking/tobacco exposure. There is no history of asthma, bronchiectasis, bronchitis, COPD, emphysema or pneumonia. PAST MEDICAL HISTORY Diagnosis Date Anemia Essential hypertension Hypothyroidism no meds and last tested 2016 PAST SURGICAL HISTORY Procedure Laterality Date DILATION & CURETTAGE 1996 LIGATE FALLOPIAN TUBE 1996 PAST SURGICAL HISTORY OF Right 04/19/2020 intraocular lens implant PAST SURGICAL HISTORY OF 03/31/2021 [employer] stent REBEL CORONARY PLAT CHROMIUM BARE METAL STENT SYS [id number], 144 CM 06/26/2014 REMOVAL GALLBLADDER 2013 SUPRACERVICAL ABDL HYSTER W/WO RMVL TUBE OVARY Bilateral 05/28/2022 supracervical hyst, RSO, left salpingectomy for fibroid utereus 3600 gm ALLERGIES Patient has no known allergies. MEDICATIONS albuterol HFA (PROVENTIL HFA, VENTOLIN HFA) 90 mcg/actuation inhaler Inhale 2 Puffs as instructed every 4 hours as needed for wheezing/shortness of breath. atorvastatin (LIPITOR) 40 mg tablet Take 1 tablet by mouth once daily. sertraline (ZOLOFT) 50 mg tablet Take 1 tablet by mouth once daily. Multivitamins chew Take by mouth. With iron aspirin, enteric coated (ASPIRIN, ENTERIC COATED) 81 mg EC tablet Take 81 mg by mouth once daily. clopidogrel (PLAVIX) 75 mg tablet Take 75 mg by mouth once daily. losartan (COZAAR) 25 mg tablet Take 25 mg by mouth once daily. metoprolol tartrate, short acting, (LOPRESSOR) 25 mg tablet Take 25 mg by mouth twice daily. doxycycline monohydrate 100 mg tablet Take 1 tablet by mouth two times a day for 7 days. fluticasone (FLONASE) 50 mcg/actuation nasal spray Use 2 Sprays in each nostril once daily. Rinse mouth after use. (Patient not taking: Reported on 04/18/2024) FAMILY HISTORY Problem Relation Age of Onset Heart Father Kidney Disease Father No Known Problems Brother No Known Problems Maternal Grandmother No Known Problems Maternal Grandfather No Known Problems Paternal Grandmother No Known Problems Paternal Grandfather Social History Tobacco Use Smoking status: Every Day Smokeless tobacco: Never Vaping Use Vaping Use: Former Substance Use Topics Alcohol use: Not Currently Drug use: Not Currently Review of Systems Constitutional: Negative for appetite change, fever, malaise/fatigue and weight loss. HENT: Positive for congestion, postnasal drip, sinus pressure and sore throat. Negative for ear pain, hoarse voice, rhinorrhea, sneezing and trouble swallowing. Eyes: Negative for pain, discharge and itching. Respiratory: Positive for cough. Negative for apnea, hemoptysis, sputum production, choking, chest tightness, shortness of breath and wheezing. Cardiovascular: Negative for chest pain, dyspnea on exertion and PND. Gastrointestinal: Negative for abdominal pain, heartburn, nausea, rectal pain and vomiting. Musculoskeletal: Negative for myalgias. Skin: Negative for color change, pallor and rash. Allergic/Immunologic: Negative for environmental allergies, food allergies and immunocompromised state. Neurological: Negative for dizziness, facial asymmetry and headaches. Hematological: Negative for adenopathy. Does not bruise/bleed easily. Psychiatric/Behavioral: Negative for agitation and behavioral problems. Objective BP 118/68 Pulse 98 Temp 36.9 C (98.5 F) Resp 16 Wt 112.4 kg (247 lb 12.8 oz) LMP 05/20/2021 (Exact Date) SpO2 95% BMI 38.81 kg/m Physical Exam Vitals and nursing note reviewed. Constitutional: General: She is not in acute distress. Appearance: Normal appearance. She is normal weight. She is not ill-appearing, toxic-appearing or diaphoretic. HENT: Head: Normocephalic and atraumatic. Comments: +frontal sinus pressure Right Ear: Ear canal and external ear normal. Left Ear: Ear canal and external ear normal. Nose: Congestion present. No rhinorrhea. Mouth/Throat: Mouth: Mucous membranes are moist. Pharynx: Posterior oropharyngeal erythema present. No oropharyngeal exudate. Comments: +post nasal drainage Eyes: General: Right eye: No discharge. Left eye: No discharge. Extraocular Movements: Extraocular movements intact. Conjunctiva/sclera: Conjunctivae normal. Pupils: Pupils are equal, round, and reactive to light. Cardiovascular: Rate and Rhythm: Normal rate and regular rhythm. Pulses: Normal pulses. Heart sounds: Normal heart sounds. No murmur heard. No friction rub. Pulmonary: Effort: Pulmonary effort is normal. No respiratory distress. Breath sounds: Normal breath sounds. No stridor. No wheezing, rhonchi or rales. Comments: Harsh non productive cough Chest: Chest wall: No tenderness. Abdominal: General: Abdomen is flat. There is no distension. Palpations: Abdomen is soft. There is no mass. Tenderness: There is no abdominal tenderness. There is no right CVA tenderness, left CVA tenderness, guarding or rebound. Hernia: No hernia is present. Musculoskeletal: General: No swelling, tenderness, deformity or signs of injury. Normal range of motion. Cervical back: Normal range of motion and neck supple. No rigidity. Right lower leg: No edema. Left lower leg: No edema. Lymphadenopathy: Cervical: Cervical adenopathy present. Skin: General: Skin is warm and dry. Capillary Refill: Capillary refill takes less than 2 seconds. Coloration: Skin is not jaundiced or pale. Findings: No bruising, erythema, lesion or rash. Neurological: General: No focal deficit present. Mental Status: She is alert and oriented to person, place, and time. Cranial Nerves: No cranial nerve deficit. Sensory: No sensory deficit. Motor: No weakness. Coordination: Coordination normal. Gait: Gait normal. Psychiatric: Mood and Affect: Mood normal. Behavior: Behavior normal. Thought Content: Thought content normal. Judgment: Judgment normal. Assessment and Plan ASSESSMENT/PLAN: 1. Acute cough - ICD9: 786.2, ICD10: R05.1 (primary diagnosis) X 1 month Seen 03/23/24 for similar States worsening Harsh non productive cough Lungs CTA +tobacco usage - XR CHEST 2V FRONTAL/LAT-xray was down at time of exam. She declines visiting [facility] for xray Will try to come back tomorrow Please advise patient of results 2. Rhinosinusitis - ICD9: 473.9, ICD10: J32.9 - Will begin treatment with as per antibiotic as written, see orders RX Doxycline - The patient should also be given OTC cough and cold meds as needed, warm salt water gargles, throat lozenges and/or OTC throat spray as needed, and nasal saline gtts and suction prn for the first 5-7 days of treatment. - Supportive care with plenty of fluids, rest, and analgesia prn. - Follow up in 3-5 days if symptoms persist or worsen. Juana Linton APRN.JAIRO documented in [facility]Tr[facility]24 NoteHNO ID: [id number] Author: CINTHYA VAUGHAN APRN.JAIRO Service: ? Author Type: Nurse Practitioner Type: Progress Notes Filed: 03/23/2024 11:07 Note Text: Subjective Cough Associated symptoms include chills, shortness of breath, wheezing and eye redness. Pertinent negatives include no chest pain, no ear pain and no sore throat. Uzma Mcdonald is a 53 year old female who presents with 4 days of cough, sinus congestion and drainage, chills, and post nasal drainage. Today she felt slightly dizzy. Cough is non-productive. She has slight shortness of breath with stair climbing. She has had sick contacts-her daughter and grandson have been sick with URI symptoms. She has been taking Mucinex at home. Review of Systems Constitutional: Positive for chills. Negative for fever and malaise/fatigue. HENT: Positive for congestion. Negative for ear pain and sore throat. Eyes: Positive for redness. Negative for blurred vision, double vision, photophobia, pain and discharge. Respiratory: Positive for cough, shortness of breath and wheezing. Negative for sputum production. Cardiovascular: Negative for chest pain. Neurological: Positive for dizziness. BP 138/64 Pulse 109 Temp 36.4 ?C (97.6 ?F) Resp 16 Wt 114.3 kg (251 lb 15.8 oz) LMP 05/20/2021 (Exact Date) SpO2 98% BMI 39.47 kg/m? PAST MEDICAL HISTORY Diagnosis Date Anemia Essential hypertension Hypothyroidism no meds and last tested 2016 PAST SURGICAL HISTORY Procedure Laterality Date DILATION AND CURETTAGE 1996 LIGATE FALLOPIAN TUBE 1996 PAST SURGICAL HISTORY OF Right 04/19/2020 intraocular lens implant PAST SURGICAL HISTORY OF 03/31/2021 [employer] stent REBEL CORONARY PLAT CHROMIUM BARE METAL STENT SYS [id number], 144 CM 06/26/2014 REMOVAL GALLBLADDER 2013 SUPRACERVICAL ABDL HYSTER W/WO RMVL TUBE OVARY Bilateral 05/28/2022 supracervical hyst, RSO, left salpingectomy for fibroid utereus 3600 gm ALLERGIES Patient has no known allergies. MEDICATIONS fluticasone (FLONASE) 50 mcg/actuation nasal spray Use 2 Sprays in each nostril once daily. Rinse mouth after use. Multivitamins chew Take by mouth. With iron aspirin, enteric coated (ASPIRIN, ENTERIC COATED) 81 mg EC tablet Take 81 mg by mouth once daily. clopidogrel (PLAVIX) 75 mg tablet Take 75 mg by mouth once daily. losartan (COZAAR) 25 mg tablet Take 25 mg by mouth once daily. metoprolol tartrate, short acting, (LOPRESSOR) 25 mg tablet Take 25 mg by mouth twice daily. predniSONE (DELTASONE) 20 mg tablet Take 2 tablets by mouth once daily for 4 days. Take daily with food. albuterol HFA (PROVENTIL HFA, VENTOLIN HFA) 90 mcg/actuation inhaler Inhale 2 Puffs as instructed every 4 hours as needed for wheezing/shortness of breath. Inhalational Spacing Device 1 Device one time only for 1 dose. atorvastatin (LIPITOR) 40 mg tablet Take 1 tablet by mouth once daily. sertraline (ZOLOFT) 50 mg tablet Take 1 tablet by mouth once daily. FAMILY HISTORY Problem Relation Age of Onset Heart Father Kidney Disease Father No Known Problems Brother No Known Problems Maternal Grandmother No Known Problems Maternal Grandfather No Known Problems Paternal Grandmother No Known Problems Paternal Grandfather Social History Tobacco Use Smoking status: Every Day Smokeless tobacco: Never Vaping Use Vaping Use: Former Substance Use Topics Alcohol use: Not Currently Drug use: Not Currently Objective Physical Exam Vitals and nursing note reviewed. Constitutional: Appearance: Normal appearance. HENT: Right Ear: Tympanic membrane, ear canal and external ear normal. Left Ear: Tympanic membrane, ear canal and external ear normal. Nose: Congestion present. Mouth/Throat: Mouth: Mucous membranes are moist. Pharynx: Oropharynx is clear. Uvula midline. No oropharyngeal exudate or posterior oropharyngeal erythema. Eyes: General: Lids are normal. Vision grossly intact. No allergic shiner. Right eye: No discharge. Left eye: No discharge. Extraocular Movements: Extraocular movements intact. Conjunctiva/sclera: Right eye: Right conjunctiva is not injected. No chemosis, exudate or hemorrhage. Left eye: Left conjunctiva is injected (slight). No chemosis, exudate or hemorrhage. Pupils: Pupils are equal, round, and reactive to light. Cardiovascular: Rate and Rhythm: Normal rate and regular rhythm. Heart sounds: Normal heart sounds. Pulmonary: Effort: Pulmonary effort is normal. No respiratory distress. Breath sounds: Examination of the right-upper field reveals wheezing. Examination of the left-upper field reveals wheezing. Examination of the right-lower field reveals wheezing. Examination of the left-lower field reveals wheezing. Wheezing present. No rales. Musculoskeletal: Cervical back: Neck supple. Lymphadenopathy: Cervical: No cervical adenopathy. Skin: General: Skin is warm and dry. Findings: No erythema or rash. (more content not included)...[facility]05-09-2024 History of Present illness Narrative* Cinthya Vaughan APRN.[facility] - 03/23/2024 10:57 AM EDT Subjective Cough Associated symptoms include chills, shortness of breath, wheezing and eye redness. Pertinent negatives include no chest pain, no ear pain and no sore throat. Uzma Mcdonald is a 53 year old female who presents with 4 days of cough, sinus congestion and drainage, chills, and post nasal drainage. Today she felt slightly dizzy. Cough is non-productive. She has slight shortness of breath with stair climbing. She has had sick contacts-her daughter and grandson have been sick with URI symptoms. She has been taking Mucinex at home. Review of Systems Constitutional: Positive for chills. Negative for fever and malaise/fatigue. HENT: Positive for congestion. Negative for ear pain and sore throat. Eyes: Positive for redness. Negative for blurred vision, double vision, photophobia, pain and discharge. Respiratory: Positive for cough, shortness of breath and wheezing. Negative for sputum production. Cardiovascular: Negative for chest pain. Neurological: Positive for dizziness. BP 138/64 Pulse 109 Temp 36.4 C (97.6 F) Resp 16 Wt 114.3 kg (251 lb 15.8 oz) LMP 05/20/2021 (Exact Date) SpO2 98% BMI 39.47 kg/m PAST MEDICAL HISTORY Diagnosis Date Anemia Essential hypertension Hypothyroidism no meds and last tested 2017 PAST SURGICAL HISTORY Procedure Laterality Date DILATION & CURETTAGE 1996 LIGATE FALLOPIAN TUBE 1996 PAST SURGICAL HISTORY OF Right 04/19/2020 intraocular lens implant PAST SURGICAL HISTORY OF 03/31/2021 Biontron[employer] stent REBEL CORONARY PLAT CHROMIUM BARE METAL STENT SYS [id number], 144 CM 06/26/2014 REMOVAL GALLBLADDER 2013 SUPRACERVICAL ABDL HYSTER W/WO RMVL TUBE OVARY Bilateral 05/28/2022 supracervical hyst, RSO, left salpingectomy for fibroid utereus 3600 gm ALLERGIES Patient has no known allergies. MEDICATIONS fluticasone (FLONASE) 50 mcg/actuation nasal spray Use 2 Sprays in each nostril once daily. Rinse mouth after use. Multivitamins chew Take by mouth. With iron aspirin, enteric coated (ASPIRIN, ENTERIC COATED) 81 mg EC tablet Take 81 mg by mouth once daily. clopidogrel (PLAVIX) 75 mg tablet Take 75 mg by mouth once daily. losartan (COZAAR) 25 mg tablet Take 25 mg by mouth once daily. metoprolol tartrate, short acting, (LOPRESSOR) 25 mg tablet Take 25 mg by mouth twice daily. predniSONE (DELTASONE) 20 mg tablet Take 2 tablets by mouth once daily for 4 days. Take daily with food. albuterol HFA (PROVENTIL HFA, VENTOLIN HFA) 90 mcg/actuation inhaler Inhale 2 Puffs as instructed every 4 hours as needed for wheezing/shortness of breath. Inhalational Spacing Device 1 Device one time only for 1 dose. atorvastatin (LIPITOR) 40 mg tablet Take 1 tablet by mouth once daily. sertraline (ZOLOFT) 50 mg tablet Take 1 tablet by mouth once daily. FAMILY HISTORY Problem Relation Age of Onset Heart Father Kidney Disease Father No Known Problems Brother No Known Problems Maternal Grandmother No Known Problems Maternal Grandfather No Known Problems Paternal Grandmother No Known Problems Paternal Grandfather Social History Tobacco Use Smoking status: Every Day Smokeless tobacco: Never Vaping Use Vaping Use: Former Substance Use Topics Alcohol use: Not Currently Drug use: Not Currently Objective Physical Exam Vitals and nursing note reviewed. Constitutional: Appearance: Normal appearance. HENT: Right Ear: Tympanic membrane, ear canal and external ear normal. Left Ear: Tympanic membrane, ear canal and external ear normal. Nose: Congestion present. Mouth/Throat: Mouth: Mucous membranes are moist. Pharynx: Oropharynx is clear. Uvula midline. No oropharyngeal exudate or posterior oropharyngeal erythema. Eyes: General: Lids are normal. Vision grossly intact. No allergic shiner. Right eye: No discharge. Left eye: No discharge. Extraocular Movements: Extraocular movements intact. Conjunctiva/sclera: Right eye: Right conjunctiva is not injected. No chemosis, exudate or hemorrhage. Left eye: Left conjunctiva is injected (slight). No chemosis, exudate or hemorrhage. Pupils: Pupils are equal, round, and reactive to light. Cardiovascular: Rate and Rhythm: Normal rate and regular rhythm. Heart sounds: Normal heart sounds. Pulmonary: Effort: Pulmonary effort is normal. No respiratory distress. Breath sounds: Examination of the right-upper field reveals wheezing. Examination of the left-upperfield reveals wheezing. Examination of the right- lower field reveals wheezing. Examination of the left-lower field reveals wheezing. Wheezing present. No rales. Musculoskeletal: Cervical back: Neck supple. Lymphadenopathy: Cervical: No cervical adenopathy. Skin: General: Skin is warm and dry. Findings: No erythema or rash. Neurological: Mental Status: She is alert. ASSESSMENT/PLAN: 1. Acute cough - ICD9: 786.2, ICD10: R05.1 (primary diagnosis) - cough drops, mucinex as needed 2. Viral URI - ICD9: 465.9, ICD10: J06.9 - Discussed viral etiology and rationale for treatment. - Symptomatic treatment with prn analgesia - Supportive care with fluids and rest - offered COVID/flu testing, patient declined 3. Viral bronchitis - ICD9: 466.0, ICD10: J20.8 - PREDNISONE 20 MG TABLET - ALBUTEROL SULFATE HFA 90 MCG/ACTUATION AEROSOL INHALER 4. Eye redness - ICD9: 379.93, ICD10: H57.89 - suspect viral cause - Follow-up with your PCP in 3-5 days if symptoms have not improved or sooner if symptoms worsen - Discussed red flags and need for immediate medical evaluation if any occur. - Discussed supportive care treatment with fluids, rest and analgesia. - Discussed expected course of illness Cinthya Vaughan APRN.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 documented in this encounterTr[facility] Instructions* Patient Instructions* Cinthya Vaughan APRN.[employer] 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 - 03/23/2024 10:57 AM EDT ASSESSMENT/PLAN: 1. Acute cough - ICD9: 786.2, ICD10: R05.1 (primary diagnosis) - cough drops, mucinex as needed 2. Viral URI - ICD9: 465.9, ICD10: J06.9 - Discussed viral etiology and rationale for treatment. - Symptomatic treatment with prn analgesia - Supportive care with fluids and rest - offered COVID/flu testing, patient declined 3. Viral bronchitis - ICD9: 466.0, ICD10: J20.8 - PREDNISONE 20 MG TABLET - ALBUTEROL SULFATE HFA 90 MCG/ACTUATION AEROSOL INHALER 4. Eye redness - ICD9: 379.93, ICD10: H57.89 - suspect viral cause - Follow-up with your PCP in 3-5 days if symptoms have not improved or sooner if symptoms worsen - Discussed red flags and need for immediate medical evaluation if any occur. - Discussed supportive care treatment with fluids, rest and analgesia. - Discussed expected course of illness Cinthya Vaughan APRN.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 ACUTE BRONCHITIS: You have acute bronchitis. This means the airway passages in your lungs are inflamed. Bronchitis may be caused by viruses or bacteria. Inhaling cigarette smoke will always make it worse. Exposure to irritating chemicals or second hand smoke as well as allergies can contribute to bronchitis. Repeat episodes of bronchitis may cause lifelong lung problems. Acute bronchitis is usually treated with rest, fluids, cough medicine, and inhaled medicine to openup the small airways. It is very important that you avoid smoke and drink increased amounts of fluids. A cool air vaporizer can help thin bronchial secretions. This makes it easier to cough and clearyour chest. If you are a cigarette smoker, consider using nicotine gum or skin patches to help you withdraw. Recovery from bronchitis is often slow, but you should start feeling better after 2-3 days of treatment. Please call your doctor or return here if you have any of the following symptoms: Increased fever, chills, or chest pain. Severe shortness of breath or bloody sputum. Do not improve after 3 days of proper treatment. documented in this encounterTr[facility]11-06-[facility]23 Miscellaneous Notes* Letter - Coordinator, Mammography - 09/20/2023 2:45 PM EST September 21, 2023 PID: [id number] Uzma Blandon Harry [address] [place] [address] Dear Ms. Mcdonald, We are pleased to inform you that the results of your recent breast imaging exam on 09/17/2023 are normal. Early detection of cancer is very important. We also understand recommendations regarding breast cancer screening are controversial. Please discuss with your primary care provider which strategy is best for you and whether a mammogram is right for you. Your imaging studies and report will be kept on file at [facility] as part of your permanent medical record and are available for your continuing care. Thank you for allowing us to help in meeting your health care needs. Sincerely, Dr. Velasquez Interpreting Radiologist [facility] (Normal over 40) documented in this encounterTrumbull [facility]11-03-2023 History of Present illness Narrative* Elizabeth Elizondo Mammo Tech - 09/17/2023 2:30 PM EDT Radiology Service Progress Note PATIENT NAME: Uzma Mcdonald DATE OF SERVICE: September 17, 2023 TIME: 2:33 PM PATIENT IDENTITY VERIFICATION COMPLETED USING TWO (2) IDENTIFIERS: Name and Date of confirmedby patient verbally. FALL SCREENING: Has the patient had 2 falls in the last year or 1 fall with injury or currently using an Ambulatory Assistive Device (Walker, Cane, Wheelchair, Crutches, etc.)? No PATIENT GENDER DATA: Female. status: : No status: NO. PATIENT RELEVANT IMPLANT DATA REVIEWED: Not Applicable RADIOLOGY DEPARTMENT: Mammography PERIPHERAL IV DATA: Not applicable SIGNED BY: Chiqui Kilgore September 17, 2023 2:33 PM documented in this encounterTrumbull [facility]10-10-2023 Miscellaneous Notes* Telephone Encounter - Aye Gtz - 08/24/2023 11:50 AM EDT Informed. Aye Gtz * Telephone Encounter - David Fink MD - 08/23/2023 5:38 PM EDT Unfortunately, I am currently closed to all new patients. * Telephone Encounter - Caitlin Dominique RN - 08/18/2023 1:58 PM EDT Patient asking if Dr. Fink would accept her 26 year old son, Sal, as a new patient? Please call pt with reply. [phone] Thank you. documented in this encounterTrumbull [facility]04-17-2023 History of Present illness Narrative* David Fink MD - 03/01/2023 2:25 PM EDT Patient presents with: Follow Up: Starting zoloft HPI: Patient presents today for office visit for follow up. PSYCH: Currently tolerating medications well: Yes . Side effects: No. 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 Seems to be getting better from covid other htan the fatigue. Current depression: No. Current anxiety: No. Suicidal ideation: No. Heartburn is much better. No side effects. Cough the night cough is much better. Elbow and hand are actually is doing better. A1c was 6.0 MEDICATIONS: Current Outpatient Medications Medication Sig sertraline (ZOLOFT) 50 mg tablet Take 1/2 tab once a day orally for one week then 1 tab once a day (Patient taking differently: Take 50 mg by mouth once daily.) predniSONE (DELTASONE) 20 mg tablet Take 2 tablets by mouth once daily. atorvastatin (LIPITOR) 40 mg tablet Take 1 tablet by mouth once daily. famotidine (PEPCID) 20 mg tablet Take 1 tablet by mouth twice daily. Multivitamins chew Take by mouth. With iron aspirin, enteric coated (ASPIRIN, ENTERIC COATED) 81 mg EC tablet Take 81 mg by mouth once daily. clopidogrel (PLAVIX) 75 mg tablet Take 75 mg by mouth once daily. losartan (COZAAR) 25 mg tablet Take 25 mg by mouth once daily. metoprolol tartrate, short acting, (LOPRESSOR) 25 mg tablet Take 25 mg by mouth twice daily. No current facility-administered medications for this visit. ALLERGIES: ALLERGIES No Known Allergies PAST MEDICAL HISTORY Diagnosis Date Anemia Essential hypertension Hypothyroidism no meds and last tested 2017 PAST SURGICAL HISTORY Procedure Laterality Date DILATION & CURETTAGE 1996 LIGATE FALLOPIAN TUBE 1996 PAST SURGICAL HISTORY OF Right 04/19/2020 intraocular lens implant PAST SURGICAL HISTORY OF 03/31/2021 [employer] stent REBEL CORONARY PLAT CHROMIUM BARE METAL STENT SYS [id number], 144 CM 06/26/2014 REMOVAL GALLBLADDER 2013 SUPRACERVICAL ABDL HYSTER W/WO RMVL TUBE OVARY Bilateral 05/28/2022 supracervical hyst, RSO, left salpingectomy for fibroid utereus 3600 gm FAMILY HISTORY Problem Relation Age of Onset Heart Father Kidney Disease Father No Known Problems Brother No Known Problems Maternal Grandmother No Known Problems Maternal Grandfather No Known Problems Paternal Grandmother No Known Problems Paternal Grandfather Social History Tobacco Use Smoking status: Every Day Smokeless tobacco: Never Vaping Use Vaping Use: Former Substance Use Topics Alcohol use: Not Currently Drug use: Not Currently Reviewed current medications, allergies, past medical history, surgical history, family history andsocial history today. REVIEW OF SYSTEMS All other reviewed and negative other than HPI. VITALS: BP 112/72 Pulse (!) 58 Wt 108.4 kg (239 lb) LMP 05/20/2021 (Exact Date) SpO2 95% BMI 37.43 kg/m Last 4 Encounter Wt Readings: Date: Wt: 01/26/2023 111.1 kg (245 lb) 08/19/2022 104.3 kg (230 lb) 08/19/2022 103.4 kg (228 lb) 07/27/2022 101.6 kg (224 lb) PHYSICAL EXAMINATION: General appearance: Well appearing, alert, in no acute distress, well-hydrated, well nourished. Skin: Skin color, texture, turgor normal, no suspicious rashes or lesions Head: Normocephalic, no masses, lesions, tenderness or abnormalities Eyes: Anicteric sclera. Pupils are equally round and reactive to light. Extraocular movements are intact. Lungs: mild rhonchi initially. Cleared with cough. Heart: RRR without murmur, gallop, or rubs. No ectopy Abdomen: Normal abdominal exam, Abdomen soft, non-tender. Bowel sounds normal. No masses, organomegaly Extremities: No deformities, edema, skin discoloration, clubbing or cyanosis. Good capillary refill. ASSESSMENT/PLAN: 1. GERD without esophagitis - ICD9: 530.81, ICD10: K21.9 (primary diagnosis) - continue meds 2. Adjustment disorder with other symptom - ICD9: 309.89, ICD10: F43.29 - call if any issues. David Fink MD documented in this encounterTr[facility]ull [facility]04-04-2023 History of Present illness Narrative* Hilda Morin APRN.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 - 02/16/2023 3:53 PM EDT Chief Complaint Patient presents with: Telemedicine I have communicated my name and active licensure. The patient's identity and physical location wereverified at the time of this visit. Either the patient or their legal district sales representative has been informed of the risks and benefits of -- and alternatives to -- treatment through a remote evaluation andconsents to proceed with the evaluation remotely. Video was used for evaluation of this patient. Patient is aware of limitations of performing the visit without a face to face visit in the office setting and agrees. Patient agrees to the visit: Yes Patient Location: [facility] Uzma Mcdonald is a 52 year old female who is contacted today for a virtual visit This is an established patient of David Fink MD Reports: Pt presents today with complaint of covid symptoms. Tested + for covid on 02/11. Symptoms started Wednesday-Wednesday -- thought maybe allergy related until her daughter tested + for covid the day before. She is no currently not taking anything for symptoms. Refers that she doesn't believe in taking anything for symptoms. However, once symptoms persist, will need treatment to improve. Refers that she is feeling better, but continues with sinus congestion. No fever since Wednesday night. She is blowing a lot out of her nose -- clear in nature. Cough is productive for clear mucus. No wheezing. Drinking water. Past medical history, appointments, medications, allergies reviewed 02/16/2023 Previous Medical History PAST MEDICAL HISTORY Diagnosis Date Anemia Essential hypertension Hypothyroidism no meds and last tested 2016 Previous Surgical History PAST SURGICAL HISTORY Procedure Laterality Date DILATION & CURETTAGE 1996 LIGATE FALLOPIAN TUBE 1996 PAST SURGICAL HISTORY OF Right 04/19/2020 intraocular lens implant PAST SURGICAL HISTORY OF 03/31/2021 [employer] stent REBEL CORONARY PLAT CHROMIUM BARE METAL STENT SYS [id number], 144 CM 06/26/2014 REMOVAL GALLBLADDER 2013 SUPRACERVICAL ABDL HYSTER W/WO RMVL TUBE OVARY Bilateral 05/28/2022 supracervical hyst, RSO, left salpingectomy for fibroid utereus 3600 gm Family History FAMILY HISTORY Problem Relation Age of Onset Heart Father Kidney Disease Father No Known Problems Brother No Known Problems Maternal Grandmother No Known Problems Maternal Grandfather No Known Problems Paternal Grandmother No Known Problems Paternal Grandfather Patient Allergies ALLERGIES No Known Allergies Current Medications Current Outpatient Medications on File Prior to Visit Medication Sig atorvastatin (LIPITOR) 40 mg tablet Take 1 tablet by mouth once daily. famotidine (PEPCID) 20 mg tablet Take 1 tablet by mouth twice daily. sertraline (ZOLOFT) 50 mg tablet Take 1/2 tab once a day orally for one week then 1 tab once a day Multivitamins chew Take by mouth. With iron aspirin, enteric coated (ASPIRIN, ENTERIC COATED) 81 mg EC tablet Take 81 mg by mouth once daily. clopidogrel (PLAVIX) 75 mg tablet Take 75 mg by mouth once daily. losartan (COZAAR) 25 mg tablet Take 25 mg by mouth once daily. metoprolol tartrate, short acting, (LOPRESSOR) 25 mg tablet Take 25 mg by mouth twice daily. No current facility-administered medications on file prior to visit. Social History Social History Tobacco Use Smoking status: Every Day Smokeless tobacco: Never Vaping Use Vaping Use: Former Substance Use Topics Alcohol use: Not Currently Drug use: Not Currently EXAM: LMP 05/20/2021 (Exact Date) Limited exam as visit was completed over the virtual platform. Virtual visit completed using video, limited exam completed. Patient sounds or appears ill: Yes, non-toxic. General Appearance: Well appearing, alert, in no acute distress, well-hydrated, well nourished. Skin: Skin color normal Head: Normocephalic. No facial swelling or redness. EENT: Eyes nonreddened. No discharge. External ears nonreddened and no swelling. Neck: No mass or lesions. No swelling. FROM Patient is unable to speak in complete sentences: No Patient has labored breathing: No. Patient is audibly coughing: Yes Psych: Attitude - cooperative, easily engaged in conversation Affect - Euthymic, normal mood Mental status: Alert. Speech is clear and fluent with good repetition, comprehension Appearance - Normal hygiene and grooming appropriate Coordination: No abnormal or extraneous movements. Gait/Stance: Posture is normal. Health Maintenance List HEPATITIS B(1 of 3 - 3-dose series) Never done PNEUMOCOCCAL(1 - PCV) Never done DTAP,TDAP,TD(1 - Tdap) Never done SHINGRIX VACCINE(1 of 2) Never done HEPATITIS C SCREENING due on 07/27/2023 COVID-19 VACCINE(1) due on 01/27/2024 INFLUENZA(Season Ended) due on 07/16/2023 LDL CHOLESTEROL due on 07/24/2023 COLORECTAL CANCER SCREENING due on 07/24/2023 MAMMOGRAM due on 07/30/2023 ANNUAL PCP TEAM CHRONIC DISEASE VISIT due on 01/27/2024 DIABETES SCREEN due on 01/26/2026 PAP TESTING due on 09/23/2026 HPV TESTING due on 09/23/2026 LIPID SCREEN due on 07/24/2027 DEPRESSION ASSESSMENT Completed HIV SCREENING Discontinued Data reviewed Last 5 Encounter BP Readings: Date: BP: 01/26/2023 130/80 08/19/2022 140/64 07/27/2022 112/62 06/08/2022 118/68 05/19/2022 126/70 BMI Readings from Last 5 Encounters: 01/26/23 : 38.37 kg/m 08/19/22 : 35.71 kg/m 07/27/22 : 35.58 kg/m 06/29/22 : 34.93 kg/m 06/08/22 : 34.30 kg/m Last 5 Encounter Wt Readings: Date: Wt: 01/26/2023 111.1 kg (245 lb) 08/19/2022 104.3 kg (230 lb) 08/19/2022 103.4 kg (228 lb) 07/27/2022 101.6 kg (224 lb) 06/29/2022 101.2 kg (223 lb) Medication and allergy list reviewed, reconciled and updated 02/16/2023 ASSESSMENT/PLAN: 1. COVID-19 - ICD9: 079.89, ICD10: U07.1 Discussed with patient that antibiotics are not indicated at this time. Discussed that we could send in a burst of prednisone, but safest and most recommended option wouldbe OTC cold medication (ie mucinex). Also discussed staying well hydrated, saline nasal spray, flonase, robitussin/delsym, throat sprays/lozenges. - PREDNISONE 20 MG TABLET Discussed treatment plan and patient voices understanding. Patient's questions answered appropriately. Medications and potential side effects were discussed and patient voices understanding. Return to the office as scheduled or as needed for worsening/no improvement. Hilda Morin APRN.[employer] AND 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 documented in this encounterTrumbull [facility]03-16-2023 Miscellaneous Notes* Telephone Encounter - David Fink MD - 01/28/2023 9:21 AM EDT Disregard. Finally read * Telephone Encounter - David Fink MD - 01/28/2023 8:03 AM EDT Can we check with radiology why her hand xray is still pending several days after it was taken? documented in this encounterTrumbull [facility] Hospital03-14-2023 History of Present illness Narrative* David Fink MD - 01/26/2023 2:37 PM EDT Patient presents with: 6 Month Exam HPI: Patient presents today for office visit for follow up. HTN: No chest pain No shortness of breath No headaches No dizziness Some palpitations. Follows Cardiology No edema No syncope HLD: Tolerating Atorvastatin. No myalgias. Has been out of medication for almost a month. Needs refilled. Has issues with trigger finger of fifth finger of right hand. At times the hands feel swollen but are chronically often numb. Getting worse. Can get her up at night. Has numbness more in the ulnar distribution. Has some neck pain and shoulder pain. Was seeing chiropractic and comes and goes. Did have a fall in November where she hit her elbow. Has had worsening issues since then. Having worsening stress. No depression. No suicidal ideation. A lot of situational issues. Has some cough at night. When she lays down. No hoarseness. Has been there for months. Some heartburn. Several times a week. Does not want xrayed. Used to take zantac. Has an order for a hba1c MEDICATIONS: Current Outpatient Medications Medication Sig Multivitamins chew Take by mouth. With iron aspirin, enteric coated (ASPIRIN, ENTERIC COATED) 81 mg EC tablet Take 81 mg by mouth once daily. clopidogrel (PLAVIX) 75 mg tablet Take 75 mg by mouth once daily. losartan (COZAAR) 25 mg tablet Take 25 mg by mouth once daily. atorvastatin (LIPITOR) 40 mg tablet Take 40 mg by mouth once daily. metoprolol tartrate, short acting, (LOPRESSOR) 25 mg tablet Take 25 mg by mouth twice daily. No current facility-administered medications for this visit. ALLERGIES: ALLERGIES No Known Allergies PAST MEDICAL HISTORY Diagnosis Date Anemia Essential hypertension Hypothyroidism no meds and last tested 2016 PAST SURGICAL HISTORY Procedure Laterality Date DILATION & CURETTAGE 1996 LIGATE FALLOPIAN TUBE 1996 PAST SURGICAL HISTORY OF Right 04/19/2020 intraocular lens implant PAST SURGICAL HISTORY OF 03/31/2021 Biontronik stent REBEL CORONARY PLAT CHROMIUM BARE METAL STENT SYS [id number], 144 CM 06/26/2014 REMOVAL GALLBLADDER 2013 SUPRACERVICAL ABDL HYSTER W/WO RMVL TUBE OVARY Bilateral 05/28/2022 supracervical hyst, RSO, left salpingectomy for fibroid utereus 3600 gm FAMILY HISTORY Problem Relation Age of Onset Heart Father Kidney Disease Father No Known Problems Brother No Known Problems Maternal Grandmother No Known Problems Maternal Grandfather No Known Problems Paternal Grandmother No Known Problems Paternal Grandfather Social History Tobacco Use Smoking status: Every Day Smokeless tobacco: Never Vaping Use Vaping Use: Former Substance Use Topics Alcohol use: Not Currently Drug use: Not Currently Reviewed current medications, allergies, past medical history, surgical history, family history andsocial history today. REVIEW OF SYSTEMS All other reviewed and negative other than HPI. VITALS: BP 130/80 Pulse 84 Ht 170.2 cm (5' 7) Wt 111.1 kg (245 lb) LMP 05/20/2021 (Exact Date) SpO2 95% BMI 38.37 kg/m Last 4 Encounter Wt Readings: Date: Wt: 08/19/2022 104.3 kg (230 lb) 08/19/2022 103.4 kg (228 lb) 07/27/2022 101.6 kg (224 lb) 06/29/2022 101.2 kg (223 lb) PHYSICAL EXAMINATION: General appearance: Well appearing, alert, in no acute distress, well-hydrated, well nourished. Skin: Skin color, texture, turgor normal, no suspicious rashes or lesions Head: Normocephalic, no masses, lesions, tenderness or abnormalities Eyes: Anicteric sclera. Pupils are equally round and reactive to light. Extraocular movements are intact. Neck: Supple, no adenopathy; thyroid symmetric, normal size, no bruits, no stridor. Lungs: moving air well. Initially heard two rhonchi then cleared. Heart: RRR without murmur, gallop, or rubs. No ectopy Abdomen: Normal abdominal exam, Abdomen soft, non-tender. Bowel sounds normal. No masses, organomegaly Extremities: No deformities, edema, skin discoloration, clubbing or cyanosis. Good capillary refill. , tender over right ulnar groove. Musculoskeletal: No joint swelling, deformity, or tenderness Peripheral pulses: Normal Neuro: Gait normal. Reflexes normal and symmetric. Sensation grossly intact. ASSESSMENT/PLAN: 1. Coronary artery disease of [place] heart with stable angina pectoris, unspecified vessel or lesion type (HCC) - ICD9: 414.01, 413.9, ICD10: I25.118 (primary diagnosis) - just saw cardiology 2. Hyperlipidemia, mixed - ICD9: 272.2, ICD10: E78.2 - stable. Continue meds. 3. Hyperglycemia - ICD9: 790.29, ICD10: R73.9 - get labs. 4. Obesity, Class I, BMI 30-34.9 - ICD9: 278.00, ICD10: E66.9 - will follow. 5. Trigger little finger of right hand - ICD9: 727.03, ICD10: M65.351 - consider ortho. Declines for now. - XR HAND GENERAL 3V PA/LAT/OBL RIGHT 6. Right elbow pain - ICD9: 719.42, ICD10: M25.521 - XR ELBOW GENERAL 2V AP/LAT RIGHT 7. Numbness - ICD9: 782.0, ICD10: R20.0 - EMG(NEURO/NI) 8. GERD without esophagitis - ICD9: 530.81, ICD10: K21.9 - Red flags for re-assessment reviewed with patient in detail. Discussed risks and benefits of new medication with the patient. Advised them to call if any side effects or questions. - FAMOTIDINE 20 MG TABLET 9. Cough, unspecified type - ICD9: 786.2, ICD10: R05.9 - declines xray. - FAMOTIDINE 20 MG TABLET 10, adj reaction. - zoloft Discussed risks and benefits of new medication with the patient. Advised them to call if any side effects or questions. David Fink documented in this encounterTr[facility]09-15-2022 Miscellaneous Notes* Letter - Mammography Coordinator - 07/30/2022 1:52 PM EDT July 30, 2022 PID: [id number] Uzma Mcdonald [address] [place] [address] Dear Ms. Mcdonald, We are pleased to inform you that the results of your recent breast imaging exam on 07/30/2022 are normal. Early detection of cancer is very important. We also understand recommendations regarding breast cancer screening are controversial. Please discuss with your primary care provider which strategy is best for you and whether a mammogram is right for you. Your imaging studies and report will be kept on file at [facility] as part of your permanent medical record and are available for your continuing care. Thank you for allowing us to help in meeting your health care needs. Sincerely, Dr. Santiago Interpreting Radiologist [facility] (Normal over 40) documented in this encounterTrumbull Memorial Hospital09-15-2022 History of Present illness Narrative* RT Mk(R) - 07/30/2022 12:50 PM EDT Radiology Service Progress Note PATIENT NAME: Uzma Mcdonald DATE OF SERVICE: July 30, 2022 TIME: 12:36 PM PATIENT IDENTITY VERIFICATION COMPLETED USING TWO (2) IDENTIFIERS: Name and Date of confirmedby patient verbally. FALL SCREENING: Has the patient had 2 falls in the last year or 1 fall with injury or currently using an Ambulatory Assistive Device (Walker, Cane, Wheelchair, Crutches, etc.)? No PATIENT GENDER DATA: Female. status: : No status: NO. PATIENT RELEVANT IMPLANT DATA REVIEWED: Not Applicable RADIOLOGY DEPARTMENT: Mammography PERIPHERAL IV DATA: Not applicable SIGNED BY: RT Mk(R) July 30, 2022 12:36 PM documented in this encounterTrumbull [facility] Hospital09-13-2022 Miscellaneous Notes* Telephone Encounter - Zoey Pineda Ma - 07/28/2022 12:43 PM EDT Pt notified of results and recommendations below from PCP. Notified that A1c order in to complete in 6 months. Pt to notify office if she has any questions. Zoey Pineda Ma * Telephone Encounter - David Fink MD - 07/28/2022 11:55 AM EDT Sugar is borderline high. Does not need meds etc. Would just watch starches and sugars in the diet.Weight loss helps as well. Recheck a1c in six months documented in this encounterTrumbull [facility] Hospital09-12-2022 History of Present illness Narrative* David Fink MD - 07/27/2022 1:10 PM EDT Patient presents with: Establish Care HPI: Patient presents today for office visit for getting established. CARDIO: she had an FL in 2013 and stent last May in 2020. She is on meds for for above. No current chest pain or shortness of breath. No edema. She would like to quit smoking. She used to be on wellbutrin. Did not like the side effects. She has not used chantix and is willing to used. No myalgias. Does get occasional leg cramps. Has been going on for two years. Had low iron and had to have blood transfusions. Iron does mess with her stomach. She is taking a chewable iron Has some onychomycosis. Discussed otc treatments. Component Latest Ref Rng & Units 07/24/2022 Protein, Total 6.3 - 8.0 g/dL 7.2 Albumin 3.9 - 4.9 g/dL 4.0 Calcium 8.5 - 10.2 mg/dL 9.2 Bilirubin, Total 0.2 - 1.3 mg/dL 0.3 Alkaline Phosphatase 34 - 123 U/L 116 AST 13 - 35 U/L 14 ALT 7 - 38 U/L 22 Glucose 74 - 99 mg/dL 108 (H) BUN 7 - 21 mg/dL 10 Creatinine 0.58 - 0.96 mg/dL 0.76 Sodium 136 - 144 mmol/L 137 Potassium 3.7 - 5.1 mmol/L 4.1 Chloride 97 - 105 mmol/L 105 CO2 22 - 30 mmol/L 23 Anion Gap 9 - 18 mmol/L 9 eGFR >=60 mL/min/1.73m 95 WBC 3.70 - 11.00 k/uL 5.27 RBC 3.90 - 5.20 m/uL 5.07 Hemoglobin 11.5 - 15.5 g/dL 13.6 Hematocrit 36.0 - 46.0 % 42.1 MCV 80.0 - 100.0 fL 83.0 MCH 26.0 - 34.0 pg 26.8 MCHC 30.5 - 36.0 g/dL 32.3 RDW-CV 11.5 - 15.0 % 16.4 (H) Platelet Count 150 - 400 k/uL 259 MPV 9.0 - 12.7 fL 9.6 Absolute nRBC <0.01 k/uL <0.01 Cholesterol, Total <200 mg/dL 134 Triglyceride <150 mg/dL 132 HDL Cholesterol >39 mg/dL 36 (L) Non HDL Cholesterol <130 mg/dL 98 Fasting Time hrs 12 VLDL Cholesterol <30 mg/dL 26 TC:HDL Ratio <5.10 3.72 LDL Cholesterol <100 mg/dL 72 LDL:HDL Ratio <2.54 2.00 Iron 41 - 186 ug/dL 55 TIBC 232 - 386 ug/dL 409 (H) Transferrin Saturation 15.0 - 57.0 % 13.4 (L) Occult Blood, Stool Negative Positive (A) TSH 0.270 - 4.200 mIU/L 2.630 MEDICATIONS: Current Outpatient Medications Medication Sig aspirin, enteric coated (ASPIRIN, ENTERIC COATED) 81 mg EC tablet Take 81 mg by mouth once daily. clopidogrel (PLAVIX) 75 mg tablet Take 75 mg by mouth once daily. losartan (COZAAR) 25 mg tablet Take 25 mg by mouth once daily. atorvastatin (LIPITOR) 40 mg tablet Take 40 mg by mouth once daily. metoprolol tartrate, short acting, (LOPRESSOR) 25 mg tablet Take 25 mg by mouth twice daily. Multivitamins chew Take by mouth. With iron No current facility-administered medications for this visit. ALLERGIES: ALLERGIES No Known Allergies PAST MEDICAL HISTORY Diagnosis Date Anemia Essential hypertension Hypothyroidism no meds and last tested 2016 PAST SURGICAL HISTORY Procedure Laterality Date DILATION & CURETTAGE 1996 LIGATE FALLOPIAN TUBE 1996 PAST SURGICAL HISTORY OF Right 04/19/2020 intraocular lens implant PAST SURGICAL HISTORY OF 03/31/2021 Biontronik stent REBEL CORONARY PLAT CHROMIUM BARE METAL STENT SYS [id number], 144 CM 06/26/2014 REMOVAL GALLBLADDER 2013 SUPRACERVICAL ABDL HYSTER W/WO RMVL TUBE OVARY Bilateral 05/28/2022 supracervical hyst, RSO, left salpingectomy for fibroid utereus 3600 gm FAMILY HISTORY Problem Relation Age of Onset Heart Father Kidney Disease Father No Known Problems Brother No Known Problems Maternal Grandmother No Known Problems Maternal Grandfather No Known Problems Paternal Grandmother No Known Problems Paternal Grandfather Social History Tobacco Use Smoking status: Every Day Smokeless tobacco: Never Vaping Use Vaping Use: Former Substance Use Topics Alcohol use: Not Currently Drug use: Not Currently Reviewed current medications, allergies, past medical history, surgical history, family history andsocial history today. REVIEW OF SYSTEMS RESPIRATORY: Negative for cough, hemoptysis, wheezing, COPD, dyspnea or shortness of breath CARDIOVASCULAR: Negative for chest pain, leg swelling, hypertension, CHF or palpitations GI: No nausea, vomiting, or diarrhea : No history of dysuria, frequency or incontinence SKIN: Negative for lesions, rash, and itching All other reviewed and negative other than HPI. HEALTH MAINTENANCE: Reviewed health maintenance issues today and recommended the following in detail. HEPATITIS B(1 of 3 - 3-dose series) Never done COVID-19 VACCINE(1) Never done PNEUMOCOCCAL(1 - PCV) Never done HEPATITIS C SCREENING-described. HIV SCREENING -described. DTAP,TDAP,TD(1 - Tdap) Never done MAMMOGRAM -scheduled. SHINGRIX VACCINE(1 of 2) Never done INFLUENZA(1) due on 07/16/2022 VITALS: BP 112/62 Pulse 68 Ht 169 cm (5' 6.54) Wt 101.6 kg (224 lb) LMP 05/20/2021 (Exact Date) BMI 35.58 kg/m Last 4 Encounter Wt Readings: Date: Wt: 07/27/2022 101.6 kg (224 lb) 06/29/2022 101.2 kg (223 lb) 06/08/2022 99.3 kg (219 lb) 05/19/2022 107.5 kg (237 lb) PHYSICAL EXAMINATION: General appearance: Well appearing, alert, in no acute distress, well-hydrated, well nourished. Skin: Skin color, texture, turgor normal, no suspicious rashes or lesions Head: Normocephalic, no masses, lesions, tenderness or abnormalities Neck: well circumscribed mass in right neck. Nontender. Mobile. Has been there since 2011. Slightlyirregular in shape. Lungs: Lungs clear to auscultation. No wheezing, rhonchi, rales Heart: RRR without murmur, gallop, or rubs. No ectopy Abdomen: Normal abdominal exam, Abdomen soft, non-tender. Bowel sounds normal. No masses, organomegaly Extremities: No deformities, edema, skin discoloration, clubbing or cyanosis. Good capillary refill. ASSESSMENT/PLAN: 1. Coronary artery disease of [place] heart with stable angina pectoris, unspecified vessel or lesion type (HCC) - ICD9: 414.01, 413.9, ICD10: I25.118 (primary diagnosis) - call if any issues. See cardiologyl 2. Blood in stool - ICD9: 578.1, ICD10: K92.1 - follow with surgery - CONSULT TO GENERAL SURGERY 3. Hyperglycemia - ICD9: 790.29, ICD10: R73.9 - check labs. - HGB A1C 4. Tobacco use - ICD9: 305.1, ICD10: Z72.0 - chantix starter pack. Discussed risks and benefits of new medication with the patient. Advised them to call if any side effects or questions. 5. Hyperlipidemia, mixed - ICD9: 272.2, ICD10: E78.2 - good control - Continue current medication. 6. Neck mass - ICD9: 784.2, ICD10: R22.1 - US HEAD/NECK SOFT TISSUE OTHER Call if changes. David Fink RTO in six months documented in this encounterTrumbull [facility] Hospital08-11-2022 Miscellaneous Notes* Telephone Encounter - Radha Adames Ma - 06/25/2022 12:37 PM EDT Ok to establish care. Please schedule appropriately. Radha Adames Ma * Telephone Encounter - Freda Hermosillo - 06/25/2022 12:25 PM EDT Pt called in hoping to establish care with . She stated that her (Pancho) is a pt of Dr. Fink already. Please advise pt either way. Freda Hermosillo documented in this encounterTrumbull [facility] Hospital08-02-2022 Miscellaneous Notes* Telephone Encounter - Tonie Cortez RN - 06/16/2022 8:29 AM EDT Patient had supracervical hysterectomy with bilateral salpingectomy and right oophorectomy and cystoscopy on 05/28/22. Tonie Cortez RN documented in this encounterTrumbull [facility] Hospital2022 History of Present illness Narrative* Kyleigh Saucedo MD - 06/08/2022 2:00 PM EDT DATE OF SERVICE: 06/08/2022 PROBLEM: Uzma Mcdonald presents for postop visit. SURGERY & DATE: 05/28/22 supracervical abd. hyst w/ RSO and left salpingectomy and cysto at [facility] for fibroids, bleeding PATHOLOGY: pending SUBJECTIVE/INTERVAL HISTORY: Uzma Mcdonald reports that she feels well. No fever or chills. No shortness of breath, cough, or chest pain. Incision is not painful, some pruritis. Minimal SS drainage from mid portion. No vaginal bleeding. Less heartburn and ANA since uterus removed. Patient reports that her appetite is good. OBJECTIVE: VABDOMEN: Abdomen soft, non-tender, no hepatosplenomegaly. Kenyon removed with staple removal without complication. Incision is intact with small amount of scabbing and normal healing induration. ASSESSMENT: postop visit, staple removal PLAN: 1. Discussed surgery and recovery and restrictions, pathology pending 2. Postop restrictions reviewed. Kyleigh Saucedo MD documented in this encounterTrumbull [facility] Hospital2022 History of Present illness Narrative* Kyleigh Saucedo MD - 06/08/2022 1:22 PM EDT Patient underwent supracervical hysterectomy with bilateral salpingectomy and right oophorectomy and cystoscopy at [facility] on 05/28/2022. The uterus was enlarged with multiple fibroids and was greater than 3600 g. EBL was approximately 1000cc. On postoperative day #1, the patient was doing well. She was tolerating regular diet. Her pain was well controlled. She was able to urinate. She is tolerating her mild anemia well. She was discharged home with routine instructions and prescriptions. She was instructed on wound care for her midline incision. She is to return to the office in 10 to 14 days for staple removal. Kyleigh Saucedo MD documented in this encounterTrumbull [facility] Hospital07-22-2022 Miscellaneous Notes* Telephone Encounter - Marci Olsen LPN - 06/05/2022 1:08 PM EDT Patient notified * Telephone Encounter - Margy Brown MD - 06/05/2022 12:05 PM EDT Discussed with ENGINEERING DOCUMENTATION SPECIALIST I think OK to monitor over the weekend for now. If she develops any signs of infection, will need to call back to be evaluated. If drainage increases, will also need to call to be evaluated for possible CTAP. * Telephone Encounter - Marci Olsen LPN - 06/05/2022 10:11 AM EDT Patient had a ALEX, RSO, Left salpingectomy by Dr. Saucedo on 05/28/2022. Patient called stating thatshe continues to have approximately 1 tablespoon of bright red blood seeping from lower section of her incision that she notices approx. every 12 hours. Denies pain, no fever or reports or increased redness or purulent drainage along incision. Patient has appointment to have kenyon removed 06/10/2022 documented in this encounterTrumbull Memorial Hospital07-05-2022 History and physical note * Kyleigh Saucedo MD - 05/19/2022 1:49 PM EDT Pre-Op History and Physical HPI: The patient is a 51 year old female presenting for pre-operative visit. She is scheduled for ALEX with bilateral salpingectomy and possible oophorectomy (only if bleeding or unanticipated pathology), for enlarged uterus, menorrhagia, chronic blood loss anemia, large fibroids of multiple locations on 05/28/22. Procedure discussed along with risks, benefits and complications. Other alternatives discussed for management. Consent form signed? Yes. PAST MEDICAL HISTORY Diagnosis Date Anemia Essential hypertension Hypothyroidism no meds and last tested 2016 PAST SURGICAL HISTORY Procedure Laterality Date DILATION & CURETTAGE 1996 LIGATE FALLOPIAN TUBE 1996 PAST SURGICAL HISTORY OF Right 04/19/2020 intraocular lens implant PAST SURGICAL HISTORY OF 03/31/2021 Biontronik stent REBEL CORONARY PLAT CHROMIUM BARE METAL STENT SYS [id number], 144 CM 06/26/2014 REMOVAL GALLBLADDER 2012 Current Outpatient Medications Medication Sig Dispense Refill norethindrone (AYGESTIN) 5 mg tablet Take 1 tablet by mouth three times daily. 30 tablet 0 Multivitamins chew Take by mouth. With iron Surgical Lubricant Jelly gel For MRI Female Pelvis, MRI department to provide. Administer intra-vaginal Surgilube immediately prior the MRI procedure (total amount to patient toleranace). (Patient not taking: Reported on 03/19/2022 ) 3 g 0 aspirin, enteric coated (ASPIRIN, ENTERIC COATED) 81 mg EC tablet Take 81 mg by mouth once daily. clopidogrel (PLAVIX) 75 mg tablet Take 75 mg by mouth once daily. losartan (COZAAR) 25 mg tablet Take 25 mg by mouth once daily. atorvastatin (LIPITOR) 40 mg tablet Take 40 mg by mouth once daily. metoprolol tartrate, short acting, (LOPRESSOR) 25 mg tablet Take 25 mg by mouth twice daily. No current facility-administered medications for this visit. ALLERGIES: Patient has no known allergies. PERSONAL HISTORY: Social History Tobacco Use Smoking status: Current Every Day Smoker Smokeless tobacco: Never Used Vaping Use Vaping Use: Former Substance Use Topics Alcohol use: Not Currently Drug use: Not Currently FAMILY HISTORY: FAMILY HISTORY Problem Relation Age of Onset Heart Father Kidney Disease Father No Known Problems Brother No Known Problems Maternal Grandmother No Known Problems Maternal Grandfather No Known Problems Paternal Grandmother No Known Problems Paternal Grandfather REVIEW OF SYMPTOMS: GENERAL: denies fevers or chills ENDOCRINOLOGY: has not been on steroids Cardiology : denies palpitations or chest pain Respiratory: denies SOB or cough Hematology: denies history of prolonged bleeding or easy bruising or VTE Allergy: Denies history of personal or family history of allergy to anesthesia PHYSICAL EXAMINATION: VITALS: Last menstrual period 05/20/2021. GENERAL: The patient is well nourished, well hydrated in no acute distress. , The patient is oriented to time, place, and person. NECK: Supple. No lynphadenopathy, normal thyroid, no thyromegaly. LUNGS: Clear to auscultation bilaterally. no wheezes, rhonchi or rales HEART: Regular rate and rhythm, Normal heart sounds and No murmurs or gallops abdomen-large solid mass midlne, minimally mobile, c/w fibroid uterus, nontender, no hernias noted IMPRESSION: Multiple large uterine fibroids, menorrhagia, chronic iron deficiency anemia from chronic blood loss. PLAN: The risks/benefits/alternatives and personal involved for the planned total abdominal hysterectomy with bilateral salpingectomy and possible oophorectomy (only if there is an anticipated pathology or bleeding) were reviewed with the patient. Her questions were answered to her satisfaction and she desires to proceed. Consent was signed. I reviewed with her postop instructions and expectations. Hold ASA 5 days preop. Plavix 3 days preop. I have reviewed and updated past medical and surgical history, medications and allergies Kyleigh Saucedo M.D. documented in this encounterTrumbull Memorial Hospital06-20-2022 Miscellaneous Notes* Telephone Encounter - Margy Brown MD - 05/04/2022 4:10 PM EDT filed * Telephone Encounter - Aye Castro RN - 05/04/2022 3:36 PM EDT Refill request received via [employer]. Patient is scheduled for surgery with Dr. Saucedo on 05/28/22. Aye Castro RN documented in this encounterTrumbull Memorial Hospital06-09-2022 Instructions* Patient Instructions* Juana Linton APRN.CNP - 04/23/2022 11:35 AM EDT RESPIRATORY INFECTION GENERAL INFORMATION: An upper respiratory tract infection, or cold, is a viral infection of the airway passages. It can be caused by any one of almost 200 different viruses. Common symptoms include a runny or stuffy nose, sneezing, watery eyes, sore throat, cough, and slight fever. Colds are contagious, especially during the first 3 or 4 days and cannot be cured by antibiotics. They are spread by coughs, sneezes, anddirect contact, especially [id number]. A respiratory tract infection usually clears up in a few days, but some people may be sick for a week or two. INSTRUCTIONS: 1. Be careful not to blow your nose too hard because this may cause a nosebleed. 2. Use a cool-mist humidifier (vaporizer) to increase air moisture. This will make it easier for you to breathe. Do not use hot steam. 3. Rest as much as possible and get plenty of sleep. 4. Wash your hands often, especially after you blow your nose. Cover your mouth and nose with a tissue when you sneeze or cough. 5. Drink plenty of clear fluids (8 glasses a day) such as water, fruit juice, tea, clear soups, andcarbonated beverages. CONTACT YOUR DOCTOR IF : 1. Your fever lasts more than 3 days. 2. You have a sore throat that gets worse or you see white or yellow spots in your throat. 3. Your cough gets worse or lasts more than 10 days. 4. You develop a rash anywhere on your skin. 5. You have an earache or a headache. 6. You have thick greenish or yellowish discharge from your nose. RETURN IMMEDIATELY IF: 1. You cough up thick yellow, green, larose, or bloody sputum. 2. You have difficulty breathing, pain in your chest, or your skin or nails look larose or blue. 3. You have shaking chills or a temperature over 102 F (39 C). documented in this encounterTrumbull Memorial Hospital06-09-2022 History of Present illness Narrative* Juana Linton APRN.CRACKER AND 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 - 04/23/2022 11:05 AM EDT This note was created using BigDealriter. Subjective Uzma Mcdonald is a 51 year old female. 51 year old female with PMH of Two cardiac stents, HTN, and FL in 2013 presents with complaints of illness. 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 Denies CP. Denies hemoptysis. Utilized some claritin a couple of times. 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 +tobacco usage. Denies that her usage is affected by her illness, States she is currently trying tocut back/quit. The history is provided by the patient. No hourly associate was used. Cough This is a new problem. The current episode started more than 1 week ago. Episode frequency: every night The problem has been gradually worsening. The cough is productive of sputum (clear). There has been no fever. Associated symptoms include sore throat and shortness of breath (with couhing). Pertinent negatives include no chest pain, no chills, no sweats, no weight loss, no ear congestion, no ear pain, no headaches, no rhinorrhea, no myalgias, no wheezing and no eye redness. She has tried decongestants and cough syrup for the symptoms. The treatment provided no relief. She is a smoker. Herpast medical history does not include bronchitis, pneumonia, bronchiectasis, COPD, emphysema or asthma. PAST MEDICAL HISTORY Diagnosis Date Anemia Essential hypertension Hypothyroidism no meds and last tested 2016 PAST SURGICAL HISTORY Procedure Laterality Date DILATION & CURETTAGE 1996 LIGATE FALLOPIAN TUBE 1996 PAST SURGICAL HISTORY OF Right 04/19/2020 intraocular lens implant PAST SURGICAL HISTORY OF 03/31/2021 Biontronik stent REBEL CORONARY PLAT CHROMIUM BARE METAL STENT SYS [id number], 144 CM 06/26/2014 REMOVAL GALLBLADDER 2013 ALLERGIES Patient has no known allergies. MEDICATIONS norethindrone (AYGESTIN) 5 mg tablet Take 1 tablet by mouth three times daily. Multivitamins chew Take by mouth. With iron aspirin, enteric coated (ASPIRIN, ENTERIC COATED) 81 mg EC tablet Take 81 mg by mouth once daily. clopidogrel (PLAVIX) 75 mg tablet Take 75 mg by mouth once daily. losartan (COZAAR) 25 mg tablet Take 25 mg by mouth once daily. atorvastatin (LIPITOR) 40 mg tablet Take 40 mg by mouth once daily. metoprolol tartrate, short acting, (LOPRESSOR) 25 mg tablet Take 25 mg by mouth twice daily. Surgical Lubricant Jelly gel For MRI Female Pelvis, MRI department to provide. Administer intra-vaginal Surgilube immediately prior the MRI procedure (total amount to patient toleranace). FAMILY HISTORY Problem Relation Age of Onset Heart Father Kidney Disease Father No Known Problems Brother No Known Problems Maternal Grandmother No Known Problems Maternal Grandfather No Known Problems Paternal Grandmother No Known Problems Paternal Grandfather Social History Tobacco Use Smoking status: Current Every Day Smoker Smokeless tobacco: Never Used Vaping Use Vaping Use: Former Substance Use Topics Alcohol use: Not Currently Drug use: Not Currently Review of Systems Constitutional: Negative for activity change, appetite change, chills, fever and weight loss. HENT: Positive for postnasal drip and sore throat. Negative for congestion, ear discharge, ear pain, hearing loss, rhinorrhea, sinus pressure, sinus pain and trouble swallowing. Eyes: Negative for pain, discharge, redness, itching and visual disturbance. Respiratory: Positive for cough and shortness of breath (with couhing). Negative for chest tightness and wheezing. Cardiovascular: Negative for chest pain. Gastrointestinal: Negative for abdominal distention, diarrhea, nausea and vomiting. Endocrine: Negative for cold intolerance and heat intolerance. Genitourinary: Negative for difficulty urinating, flank pain and urgency. Musculoskeletal: Negative for back pain, myalgias, neck pain and neck stiffness. Skin: Negative for color change, rash and wound. Allergic/Immunologic: Positive for immunocompromised state. Negative for environmental allergies and food allergies. Neurological: Negative for dizziness, light-headedness and headaches. Hematological: Negative for adenopathy. Does not bruise/bleed easily. Psychiatric/Behavioral: Negative for agitation, behavioral problems and confusion. Objective BP 126/84 Pulse 75 Temp 36.1 C (97 F) Resp 18 Wt 107.9 kg (237 lb 12.8 oz) LMP 05/20/2021(Exact Date) SpO2 96% Physical Exam Vitals and nursing note reviewed. Constitutional: General: She is not in acute distress. Appearance: Normal appearance. She is normal weight. She is not ill-appearing, toxic-appearing or diaphoretic. HENT: Head: Normocephalic. Right Ear: Tympanic membrane, ear canal and external ear normal. There is no impacted cerumen. Left Ear: Tympanic membrane, ear canal and external ear normal. There is no impacted cerumen. Nose: Nose normal. No congestion or rhinorrhea. Mouth/Throat: Mouth: Mucous membranes are moist. Pharynx: No oropharyngeal exudate or posterior oropharyngeal erythema. Eyes: General: No scleral icterus. Right eye: No discharge. Left eye: No discharge. Extraocular Movements: Extraocular movements intact. Conjunctiva/sclera: Conjunctivae normal. Pupils: Pupils are equal, round, and reactive to light. Cardiovascular: Rate and Rhythm: Normal rate and regular rhythm. Pulses: Normal pulses. Heart sounds: Normal heart sounds. No murmur heard. No friction rub. Pulmonary: Effort: Pulmonary effort is normal. No respiratory distress. Breath sounds: Wheezing and rhonchi present. No rales. Comments: Left upper lobe with rhonchi and expiratory wheezing Chest: Chest wall: No tenderness. Abdominal: General: There is distension. Palpations: Abdomen is soft. There is no mass. Tenderness: There is abdominal tenderness. There is no right CVA tenderness, left CVA tenderness orrebound. Musculoskeletal: General: No swelling, tenderness, deformity or signs of injury. Normal range of motion. Cervical back: Normal range of motion. No rigidity or tenderness. Right lower leg: No edema. Left lower leg: No edema. Skin: General: Skin is warm and dry. Capillary Refill: Capillary refill takes less than 2 seconds. Coloration: Skin is not pale. Findings: No erythema, lesion or rash. Neurological: General: No focal deficit present. Mental Status: She is alert and oriented to person, place, and time. Sensory: No sensory deficit. Motor: No weakness. Coordination: Coordination normal. Gait: Gait normal. Psychiatric: Mood and Affect: Mood normal. Behavior: Behavior normal. Thought Content: Thought content normal. Judgment: Judgment normal. Shena Paredes BLADDER BLOWER Student ASSESSMENT/PLAN: 1. Cough - ICD9: 786.2, ICD10: R05.9 (primary diagnosis) X 10 days No red flags +tobacco smoker - XR CHEST 2V FRONTAL/LAT-negative for acute process 2. URI, acute - ICD9: 465.9, ICD10: J06.9 - Symptomatic treatment with prn analgesia - Supportive care with fluids and rest - The patient may also use OTC cough and cold meds as needed, warm salt water gargles, throat lozenges and/or OTC throat spray as needed, nasal saline gtts and suction prn and RX Prednisone. Was prescribed safety net ATB, Doxycyline, if symptoms persist into weekend. - Follow up in 3-5 days if symptoms persist or sooner if worsening of symptoms - Declines COVID testing. Juana Linton APRN.CRACKER AND 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 TEACHING PROVIDER (Physician/PA/BLADDER BLOWER) NOTE OF PERSONAL INVOLVEMENT IN CARE: I have personally seen and examined the patient and performed the medical decision-making components. I have reviewed the Advanced Practice Registered Nurse (BLADDER BLOWER) Student's documentation and verified the findings in the note as written. Any additions or changes are noted in bold/italics. Signature: Juana Linton Date: 04/23/2022 Time: 11:55 AM documented in [facility] History of Present illness Narrative* Yolette Gramajo RT(R) - 04/23/2022 11:00 AM EDT Radiology Service Progress Note PATIENT NAME: Uzma Mcdonald DATE OF SERVICE: April 23, 2022 TIME: 11:00 AM PATIENT IDENTITY VERIFICATION COMPLETED USING TWO (2) IDENTIFIERS: Name and Date of confirmedby patient verbally. FALL SCREENING: Has the patient had 2 falls in the last year or 1 fall with injury or currently using an Ambulatory Assistive Device (Walker, Cane, Wheelchair, Crutches, etc.)? No PATIENT GENDER DATA: Female. status: : No status: NO. PATIENT RELEVANT IMPLANT DATA REVIEWED: Yes RADIOLOGY DEPARTMENT: General X-ray: Exam(s) Completed: Chest X-Ray PERIPHERAL IV DATA: Not applicable SIGNED BY: RT Ivette(R) April 23, 2022 11:00 AM documented in this encounterTr[facility]ull [facility]05-12-2022 Miscellaneous Notes* Telephone Encounter - Aye Castro RN - 03/26/2022 12:42 PM EDT Patient called back and notified of below. Patient would like to proceed with surgery on 05/28 at [facility]. Aye Castro RN * Telephone Encounter - Marci Olsen LPN - 03/26/2022 12:31 PM EDT Left message to call office. Available date in May for surgery is 05/28/2022 at [facility]. Will schedule pre-op once patient has new insurance in April documented in this encounterTr[facility]05-[facility] History of Present illness Narrative* Kyleigh Saucedo MD - 03/19/2022 11:33 AM EDT Uzma Mcdonald is a 51 year old female who presents for problem visit for f/u heavy menses, anemia, uterine fibroids. Has been using norethindrone to help control bleeding since the end of last year. Did not proceed w/ hyst at that time b/c of insurance. Would like to proceed after . OB History T0 L4 SAB0 IAB0 Ectopic0 Multiple0 Live Births0 Flatwork Catcher History LMP: 05/20/2021, Having periods Age at Menarche: Age at First : Age at Menopause: Flatwork Catcher History Comments: Sexual Activity: Not Currently; Male Contraception: Tubal Ligation No past medical history on file. PAST SURGICAL HISTORY Procedure Laterality Date DILATION & CURETTAGE 1996 LIGATE FALLOPIAN TUBE 1996 PAST SURGICAL HISTORY OF Right 04/19/2020 intraocular lens implant PAST SURGICAL HISTORY OF 03/31/2021 Biontronik stent REBEL CORONARY PLAT CHROMIUM BARE METAL STENT SYS [id number], 144 CM 06/26/2014 REMOVAL GALLBLADDER 2013 FAMILY HISTORY Problem Relation Age of Onset Heart Father Kidney Disease Father No Known Problems Brother No Known Problems Maternal Grandmother No Known Problems Maternal Grandfather No Known Problems Paternal Grandmother No Known Problems Paternal Grandfather Social History Tobacco Use Smoking status: Current Every Day Smoker Smokeless tobacco: Never Used Vaping Use Vaping Use: Former Substance Use Topics Alcohol use: Not Currently Drug use: Not Currently Current Outpatient Medications Medication Sig Multivitamins chew Take by mouth. With iron norethindrone (AYGESTIN) 5 mg tablet Take 1 tablet by mouth three times daily. aspirin, enteric coated (ASPIRIN, ENTERIC COATED) 81 mg EC tablet Take 81 mg by mouth once daily. clopidogrel (PLAVIX) 75 mg tablet Take 75 mg by mouth once daily. losartan (COZAAR) 25 mg tablet Take 25 mg by mouth once daily. atorvastatin (LIPITOR) 40 mg tablet Take 40 mg by mouth once daily. metoprolol tartrate, short acting, (LOPRESSOR) 25 mg tablet Take 25 mg by mouth twice daily. Surgical Lubricant Jelly gel For MRI Female Pelvis, MRI department to provide. Administer intra-vaginal Surgilube immediately prior the MRI procedure (total amount to patient toleranace). (Patient not taking: Reported on 03/19/2022 ) No current facility-administered medications for this visit. Allergies As of Date: 03/19/2022 (No Known Allergies) Fully Assessed 03/19/2022 Allergies and current medication updated:Yes EXAM: LMP 05/20/2021 GENERAL: pleasant, female in no apparent distress ABDOMEN: soft, non-tender, no masses and uterus is 24 week size, bulky, difficult to mobilize ASSESSMENT AND PLAN: menorrhagia and large 24 week size fibroid uterus. chronic blood loss anemia. D/w her importance ofoptomizing hgb and health before surgery> Labs ordered. May need IVFE or transfusion of PRBCs before surgery. Norethindrone to help control the bleeding in the interim. If it gets heavy or she gets SOB/Lightheaded/CP or other concern she should go to ED. She has completed child bearing. She states understanding of the plan and strongly desires definitive surgery in form of ALEX, bilateral salpingectomy. Understands possible oophorectomy depending on anatomy/location of ovaries or if bleeding.Understands risks of would still recommend MRI Medical Decision Making Kyleigh Saucedo MD documented in this encounterTr[facility]04-15-2022 Miscellaneous Notes* Telephone Encounter - Margy Brown MD - 02/27/2022 12:16 PM EDT Will file but please schedule her for follow up visit with RR thanks * Telephone Encounter - Kristen Duran LPN - 02/27/2022 11:03 AM EDT See pt's mychart refill request and advise. Kristen Duran LPN documented in this encounterTrumbull [facility]04-15-2022 Miscellaneous Notes* Telephone Encounter - Kristen Duran LPN - 02/27/2022 11:04 AM EDT See pt's mychart note in RR absence. Kristen Duran LPN * Telephone Encounter - Kyleigh Saucedo MD - 02/04/2022 8:31 AM EDT Needs appointment defintitely. Shouldn't be taking TID indefinitely. Needs a management plan. was waiting until she changed insurance. Kyleigh Saucedo MD * Telephone Encounter - Giselle Copeland RN - 02/04/2022 8:03 AM EDT See refill request from patient for more quantity.Last seen 10/01/2021. Multiple refills since then documented in this encounterTrumbull [facility]11-08-2021 Miscellaneous Notes* Telephone Encounter - Tonie Cortez RN - 09/22/2021 2:54 PM EST Patient scheduled for tomorrow with KJ. Tonie Cortez RN * Telephone Encounter - Kyleigh Saucedo MD - 09/22/2021 12:52 PM EST Received a call from the emergency room regarding Uzma. She was seen on 09 18 for heavy vaginal bleeding. Hemoglobin was stable at that time and was discharged home. Was not started on any therapy for the bleeding. Had heavy bleeding over the weekend and arrived in the emergency room on 09 22 with a hemoglobin of 5.6. Patient called to schedule a follow-up and was scheduled on 10/23. Patient is on plavix and ASA due to h/o cardiovascular disease. US shows uterus 24 cm. Was not bleeding today, so was started on Aygestin 5 mg 3 times daily. The emergency room was transfusing the patient. She was then to be discharged home and follow-up here. With a uterus this large she will likely need MRI ([facility], fibroid protocol), EMB and we will need to coordinate with her concept artist about care. Can see DM tomorrow, use both 820 and 840 slots or can use KJ afternoon slots 310-320 and 340 slots to give enough time. Thanks. Kyleigh Saucedo MD documented in this encounterTr[facility]ull [facility]05-17-2021 Evaluation note* Diagnosis Onset Date Resolution Status High cholesterol acute Essential (primary) hypertension chronic History of coronary artery stent placement March 31 021 resolved [facility] Work Phone: Consult note Author Ck Cotto [facility] Note Date/Time April 02, 2025 1:54p [facility] Medical Records Department [address] [place] [address] Anesthesia Postop Eval II 04/02/25 1305 MR#: [id number] Acct: [id number] Name: UZMA MCDONALD Rep #:[id number] : 1970 54 From: Ck Cotto MD PCP: Dr. David Fink MD Status:REG S DC Y Race: C Location: [address] Anesthesia Postop Eval I Sum Postop Eval Completion status Anesthesia document: Postop Eval 1 completed: Yes Anesthesia Postop Eval I Summary Anesthesia Postop Eval I Summary: Anesthesia Postop Eval I: Assessment Summary Airway patent Yes 04/02/25 12:06 OPERATIONS AND MAINTENANCE TECHNICAN.HBARR Spontaneous unlabored Yes 04/02/25 12:06 OPERATIONS AND MAINTENANCE TECHNICAN.HBARR respirations Mental status Awake 04/02/25 12:06 OPERATIONS AND MAINTENANCE TECHNICAN.HBARR nausea No 04/02/25 12:06 OPERATIONS AND MAINTENANCE TECHNICAN.HBARR Vomiting No 04/02/25 12:06 OPERATIONS AND MAINTENANCE TECHNICAN.HBARR Anesthesia Postop Eval I: Fluid Summary Crystalloid volume administer 500 04/02/25 12:06 OPERATIONS AND MAINTENANCE TECHNICAN.HBARR (ml) Colloids volume administered ( ml) Blood Product volume administered (ml) Total IV fluid infused 500 04/02/25 12:06 OPERATIONS AND MAINTENANCE TECHNICAN.HBARR Anesthesia Postop Eval I: Summary Notes Anesthesia Complication No 04/02/25 12:06 OPERATIONS AND MAINTENANCE TECHNICAN.HBARR Anesthesia Complication Comment: Post-operative progress note Anesthesia: Postop Eval II Evaluation Mental status: Awake Pain Level: 0 nausea: No Vomiting: No 04/02/25 1305 <Electronically signed by Ck Cotto MD > Date _ Ck Cotto MD Cosigner Signature: Date CC: ~ Signed [facility] Work Phone: Discharge summary Author Theo Richard [facility] Note Date/Time April 02, 2025 12:19 pm [facility] Medical Records Department [address] [place] [address] Instructions for Home/Discharge Instructions 04/02/25 1218 MR#: [id number] Acct: [id number] Name: UZMA MCDONALD Rep #:[id number] : 1970 54 From: Theo villegas MD PCP: Dr. David Fink MD Status:REG S DC Discharge Instructions Procedure Gallbladder Diet Discharge Diet: Light diet - advance as tolerated Activity Discharge Activity: May Not Drive (for 2-3 days or while taking narcotic pain medications.) and - (Do not drive, work heavy equipment or sign legal documents for 24 hours.) May shower in (days): 1 Lifting Restrictions: 20 lbs for 2 weeks Additional Activity Instructions:: Pain medication may cause nausea. You should typically eat light foods as you take your pain medications. Pain medication may also cause constipation. If this is a problem for you, please discuss with your doctor. Resume aspirin tomorrow Dressing / Incision Call your doctor if your incision/area has: Continuous Slow Oozing, Sudden Increased Bleeding, Increased Pain/ Swelling, Increased Redness and Foul Smelling Discharge Call your doctor if you observe: Fever of 101 or Higher Suture Line Care: Avoid Pulling/Pushing and Avoid Pinching/Bending Remove Dressing in: 2 days Additional Dressing/Incision Instructions:: Leave operative bandaids on for 2 days. When you remove dressing, leave Steri-Strips on until your follow-up appointment, or until the Steri-Strips fall off on their own. Follow Up Care Please Follow Up With: Theo Richard MD When: Please call to schedule 2 week follow up appointment. [phone] Test Results: Test results from this visit will be discussed in further detail at your follow- up appointment, if applicable. Discharge Plan Admission Attending Provider: Theo Richard Primary Care Provider: David Fink Instructions Print Language: Tuvaluan Discharge Orders/Prescriptions Prescriptions: No Action sertraline [Zoloft] 50 mg tablet 50 mg PO QHS famotidine [Pepcid] 20 mg tablet 20 mg PO BID atorvastatin 80 mg tablet 80 mg PO QHS Qty: 90 3RF aspirin 81 MG tablet,chewable 81 mg PO DAILY@0800 Referrals / Follow Up: David Fink MD [Primary Care Provider] - Disposition Disposition (needs filled in before D/C Order can be placed): Home, Self Care 04/02/25 1219<Electronically signed by Theo Richard MD>Theo Richard MD CC: Dr. David Fink MD ~ Signed [facility] Work Phone: evaluation note* Diagnosis Menorrhagia with irregular cycle- Primary Excessive or frequent menstruation Uterine leiomyoma, unspecified location Iron deficiency anemia due to chronic blood loss Iron deficiency anemia secondary to blood loss (chronic) documented [facility] this encounter [facility] [place] [facility]* Diagnosis Cough- Primary URI, acute Acute upper respiratory infections of unspecified site documented in this encounter [facility] [place] [facility]* Diagnosis Menorrhagia with irregular cycle- Primary Excessive or frequent menstruation Uterine leiomyoma, unspecified location Iron deficiency anemia due to chronic blood loss Iron deficiency anemia secondary to blood loss (chronic) documented in this encounter [facility] [place] noteNo assessment information availableWOhioHealth [facility] Work Phone: evaluation note* Diagnosis Onset Date Resolution Status Menorrhagia acute Uterine fibroid acute Anemia due to chronic blood loss chronic [facility] Work Phone: Evaluation note* Diagnosis Uterine leiomyoma, unspecified location- Primary Iron deficiency anemia due to chronic blood loss Iron deficiency anemia secondary to blood loss (chronic) Menorrhagia with regular cycle Excessive or frequent menstruation documented [facility] encounter [facility]* Diagnosis Postop check- Primary Follow-up examination, following unspecified surgery documented in this encounter [facility] [place] [facility]* Diagnosis Coronary artery disease of [place] heart with stable angina pectoris, unspecified vessel or lesion type (HCC)- Primary Blood in stool Hyperglycemia Other abnormal glucose Tobacco use Tobacco use disorder Hyperlipidemia, mixed Mixed hyperlipidemia Neck mass Swelling, mass, or lump in head and neck documented [facility] encounter [facility]* Diagnosis Hyperglycemia- Primary Other abnormal glucose [facility]* Diagnosis Obesity, Class I, BMI 30-34.9 Obesity, unspecified documented in this encounter [facility] [place] [facility]* Diagnosis Coronary artery disease of [place] heart with stable angina pectoris, unspecified vessel or lesion type (HCC)- Primary Hyperlipidemia, mixed Mixed hyperlipidemia Hyperglycemia Other abnormal glucose Obesity, Class I, BMI 30-34.9 Obesity, unspecified Trigger little finger of right hand Trigger finger (acquired) Right elbow pain Pain in joint, upper arm Numbness Disturbance of skin sensation GERD without esophagitis Esophageal reflux Cough, unspecified type Adjustment disorder with anxious mood Adjustment disorder with anxiety documented in this encounter [facility] note* Diagnosis COVID-19- Primary documented in this encounter [facility] note* Diagnosis GERD without esophagitis- Primary Esophageal reflux Adjustment disorder with other symptom documented in this encounter [facility] note* Diagnosis Encounter for screening mammogram for malignant neoplasm of breast Other screening mammogram documented in this encounter [facility] note* Diagnosis Acute cough- Primary Viral URI Acute upper respiratory infections of unspecified site Viral bronchitis Acute bronchitis Eye redness Redness or discharge of eye documented in this encounter [facility] note* Diagnosis Acute cough- Primary Rhinosinusitis Unspecified sinusitis (chronic) documented in this encounter [facility] note* Diagnosis Acute cough- Primary Bronchitis Bronchitis, not specified as acute or chronic Acute cough documented in this encounter [facility] note* Diagnosis Acute cough documented in this encounter [facility] note* Diagnosis Trigger little finger of right hand Trigger finger (acquired) Right elbow pain Pain in joint, upper arm documented in this encounter [facility] note* Diagnosis Cough documented in this encounter [facility] note* Diagnosis Encounter for screening mammogram for breast cancer- Primary documented in this encounter [facility] note* Diagnosis Encounter for screening mammogram for malignant neoplasm of breast- Primary Other screening mammogram documented in this encounter [facility] note* Diagnosis Encounter for screening mammogram for breast cancer documented in this encounter [facility] note* Diagnosis Burning with urination- Primary Dysuria documented in this encounter [facility] note* Diagnosis Pelvic mass- Primary Abdominal or pelvic swelling, mass or lump, unspecified site documented in this encounter [facility] note* Diagnosis Pelvic mass in female- Primary documented in this encounter [facility] note* Diagnosis Pelvic mass- Primary Abdominal or pelvic swelling, mass or lump, unspecified site Pelvic mass Abdominal or pelvic swelling, mass or lump, unspecified site Intra-abdominal and pelvic swelling, mass and lump, unspecified site [facility] Pelvic mass in female- Primary Postoperative follow-up Follow-up examination, following unspecified surgery Yeast infection of the skin Candidiasis of skin and nails documented [facility] 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, site unspecified 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 documented in this [facility]* Prior Authorization Referral - ONC/HEM Location: None Selected * Urology Location: None Selected [facility] Work Phone: Progress note Author Imani Persaud [facility] Note Date/Time April 19, 2025 9:41a m [facility] [address] [address] OFFICE VISIT Date of Service: 04/19/25905 MR#: [id number] Acct: [id number] Name: UZMA MCDONALD CADEN Rep #: [id number] : 1970 From: Imani fair MD Age/Sex: 54/F Location: [facility] Status: Signed HPI Subjective Date of Service 04/19/25 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 The patient was seen in [facility] emergency room January 08, 2025 with urinary symptoms that proved to be due to a UTI which improved with a course of antibiotics. An incidental left pelvic mass was seen on CT scan. January 08, 2025 CT abdomen and pelvis: FINDINGS: Lung bases: Clear Liver: Diffuse fatty infiltration. Enlarged Gallbladder: Surgically absent. Spleen: Normal size. Pancreas: Unremarkable. Adrenals: Unremarkable. Kidneys: Left peripelvic fat stranding with 14 mm nonobstructive calculus. Nonobstructive calculi are also noted in the left kidney.. Bladder: Unremarkable. Reproductive Organs: Prior hysterectomy. Adnexal regions are unremarkable. Bowel: No bowel obstruction. Appendix: Normal. Lymph nodes: There is a heterogeneously enhancing mass in the left pelvis measuring 7.3 x 8.1 cm. No other corresponding lymphadenopathy is noted. Vasculature: Mild diffuse atherosclerotic calcifications are noted. Peritoneum / Retroperitoneum: No ascites. No free air. Bones: Unremarkable. IMPRESSION: 1. Heterogeneous left pelvic mass concerning for neoplasm 2. Left pyelonephritis with nonobstructive stone. Nonobstructive calculi also noted in the right kidney. 3. Hepatic steatosis and hepatomegaly January 12, 2025 transvaginal ultrasound: IMPRESSION: Status post hysterectomy and right oophorectomy. Heterogeneous enlargement of the left ovary with blood flow. This corresponds with the CT findings. January 26, 2025 patient underwent exploratory laparotomy, left oophorectomy, removal of pelvic mass, omentectomy. Pathology: A. Pelvic mass excision: High-grade sarcoma with myogenic differentiation favorleiomyosarcoma. B. Pelvic mass excision: High-grade sarcoma with myogenic differentiation, favor leiomyosarcoma. C. Omentum, omentectomy benign adipose tissue negative for malignancy. D. Ovary left oophorectomy: Ovary with no significant pathologic changes. Comment: Sections from the pelvic mass show a highly cellular spindled and focally epithelioid malignant neoplasm with marked cytologic atypia, brisk mitotic activity and tumor cell necrosis. IHC at [facility] positive for SMA, negative for desmin, STAT6, pancytokeratin, S100 and CD34. Additional IHC done at [facility] showed negative Desmin, negative Caldesmon, ER diffuse strong positive, ALK negative, p53 aberrant (strong diffuse), PTEN retained staining, RB1 loss ofstaining, HMB45 negative. Again the overall morphologic and IHC features consistent with a high- grade sarcoma with a diagnosis of leiomyosarcoma is favored. The site of origin of this tumor is difficult to determine but the presence of ER staining raises the possibility of m?llerian origin. January 26, 2025 peritoneal washings no malignant cells identified. March 26, 2025 chest abdomen and pelvis CT: IMPRESSION: 1. Few scattered less than 6 mm indeterminate pulmonary nodules. Otherwise, no evidence of metastatic disease in the thorax. 2. Status post hysterectomy and resection of previously noted mass. Small indeterminate soft tissue nodules noted within the anterior pelvic mesentery and hysterectomy bed. These may represent sequela of postoperative changes. However, peritoneal carcinomatosis can not be excluded. Attention on follow-up is recommended. 3. 18 mm left renal pelvis obstructing calculus with mild hydronephrosis. Multiple other nonobstructing calculi. 4. 3 mm left UVJ/posterior urinary bladder wall calculus. Treatment summary and response: * January 26, 2025 patient underwent exploratory laparotomy, left oophorectomy, removal of pelvic mass, omentectomy. * Docetaxel gemcitabine April 19, 2025 [facility] Medical History Encounter for education Cancer Back pain Shortness of breath on exertion Leg cramps History of stress test Primary leiomyosarcoma of pelvis Anemia due to chronic blood loss Menorrhagia Wears dentures High cholesterol Loss of consciousness Gastric reflux Smoker Cardiology follow-up encounter History of echocardiogram Cardiac murmur History of non-ST elevation myocardial infarction (NSTEMI) (06/2014) Essential (primary) hypertension Atherosclerosis of coronary artery without angina pectoris Kidney stones Surgical History H/O pelvic mass (~01/26/25) History of cardiac catheterization Hx of oral surgery Hx laparoscopic cholecystectomy Hx of left cataract extraction History of hysterectomy Cataract extraction status of right eye Hx of tubal ligation History of coronary artery stent placement (03/31/21) Family History Father Kidney disease Aunt Cancer paternal Other Heart disease Social History household members: spouse housing: house Smoking Status: Current every day smoker tobacco type: cigarettes Tobacco: How many years used: 39 alcohol intake: never substance use type: does not use caffeine: Yes Type: coffee Number of servings: 1 and tea Number of servings: 2 ROS ROS Narrative Sleepless and flushed from oral steroid premedication Constitutional Constitutional: Reports systems reviewed and no addt'l complaints, except as documented; Denies fever(s), night sweats or weight loss Eyes Eyes: Reports systems reviewed and no addt'l complaints, except as documented ENT HEENT: Reports systems reviewed and no addt'l complaints, except as documented; Denies mouth lesions Cardiovascular Cardiovascular: Reports systems reviewed and no addt'l complaints, except as documented; Denies chest pain with activity or edema Respiratory/Chest Respiratory/Chest: Reports systems reviewed and no addt'l complaints, except as documented; Denies cough or dyspnea Gastrointestinal Gastrointestinal: Reports systems reviewed and no addt'l complaints, except as documented; Denies change in bowel habits, hematochezia or melena Genitourinary Genitourinary: Reports systems reviewed and no addt'l complaints, except as documented and as per HPI; Denies dysuria or hematuria Musculoskeletal Musculoskeletal: Reports systems reviewed and no addt'l complaints, except as documented; Denies back pain Integumentary Integumentary: Reports systems reviewed and no addt'l complaints, except as documented; Denies new lesions Neurologic Neurologic: Reports systems reviewed and no addt'l complaints, except as documented; Denies focal weakness or paresthesias Psychiatric Psychiatric: Reports systems reviewed and no addt'l complaints, except as documented Endocrine Endocrinology: Reports systems reviewed and no addt'l complaints, except as documented Hematologic/Lymphatic Hematologic/Lymphatic: Reports systems reviewed and no addt'l complaints, exceptas documented; Denies lymphadenopathy Allergic/Immunologic Allergic/Immunologic: Reports systems reviewed and no addt'l complaints, except as documented Intake Vital Signs 04/04/25 14:17 04/19/25 09:06 Height 5 ft 7 in 5 ft 7 in Weight: 101.264 kg BMI 34.9 BP 131/74 H Blood Pressure Location Lt brachial Position Sitting Respiration 16 Pulse 80 Pulse Source Monitor Temp 98.5 F Temperature Source Temporal Artery Pulse Oximetry (%) 94 Oxygen Delivery Method room air Intake Is patient in pain?: No Allergies No Known Allergies Allergy (Verified 04/19/25 09:10) Medications ?Medication ?Instructions ?Recorded ?Confirmed ?Type aspirin 81 mg chewable tablet 81 mg PO DAILY@0800 hx o f mi 06/09/19 04/19/25 History atorvastatin 80 mg tablet 80 mg PO QHS cholesterol #90 tabs 11/29/23 04/19/25 Rx famotidine 20 mg tablet (Pepcid) 20 mg PO BID 11/29/23 04/19/25 History sertraline 50 mg tablet (Zoloft) 50 mg PO QHS 11/29/23 04/19/25 History lidocaine-prilocaine 2.5 %-2.5 % 1 applic topical ONCE PRN port 04/04/25 04/19/25 Rx topical cream access 30 days #30 grams ondansetron 8 mg disintegrating 8 mg PO Q8H PRN nausea and 04/04/25 04/19/25 Rx tablet vomiting #30 tabs prochlorperazine maleate 10 mg 10 mg PO Q6H PRN nausea and 04/04/25 04/19/25 Rx tablet vomiting #30 tabs dexamethasone 4 mg tablet 8 mg (2 x 4 mg) PO .COMPLEX #72 04/05/25 04/19/25 Rx tabs Central Venous Access Central Venous Access: Yes Port/PICC: Port CBC, CMP April 19, 2025 reviewed in EMR Exam Physical Exam Const alert, oriented x3 and no apparent distress General Appearance: cooperative and comfortable Nutritional Appearance: obese HEENT normocephalic Face and Sinus: normal facial exam Mouth: oral and palatal mucosa normal Eyes General Eye: normal appearance of both eyes Neck no lymphadenopathy and no JVD Lymph Lymphatic: no lymphadenopathy noted Chest Chest: vascular access Resp Auscultation: wheezes and diminished lung sounds bilateral and diffuse Cardio regular rate and regular rhythm Jugular Venous Distention: Negative for JVD GI soft to palpation, non-tender and non-distended; Negative for hepatosplenomegaly Back/Spine no thoracic nor lumbar tenderness Extremity no clubbing, cyanosis or edema Skin no rashes or lesions noted Neuro oriented x3, CN's II-XII intact bilaterally, moves all extremities and no focal motor deficits Coordination / Balance: unmkso-qh-qdwr test normal Speech: speech normal Gait (Neuro): normal gait Psych mental status grossly normal Coding Level of Care Code Off vis,est,level 4 Exam Problem Focused Diagnoses 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 Past medical history notable for status post hysterectomy, bilateral salpingectomy and right oophorectomy for fibroid uterus was excessive menstrual bleeding causing iron deficiency anemia in 2021. Transvaginal ultrasound suggested left ovarian enlargement. January 26, 2025 underwent exploratory laparotomy left oophorectomy and removal ofpelvic mass, omentectomy by Dr. Grady. 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 Left oophorectomy showed no significant pathologic changes, omentum showed no evidence of malignancy and peritoneal washings showed no malignant cells. Was seen at [facility] sarcoma clinic by Dr. Cunningham in March 2025 who recommended standard adjuvant chemotherapy with gemcitabine Taxotere for 6 cycles followed by maintenance pazopanib plus letrozole indefinite/till progression. Of note her CA125 was not elevated. Chronic comorbid conditions: Obesity, dyslipidemia, coronary artery disease, hypertension and active smoker. Plan: Based on NCCN guideline and consultation with Drs. Grady and Octavio: 1-adjuvant systemic chemotherapy with gemcitabine and Taxotere for 6 cycles. Patient will be supported with antiemetics, steroids (will drop the dose to 4 Mgtwice daily for 3 days starting the day prior to Taxotere due to intolerance of steroid side effects) . Primary prophylaxis against febrile neutropenia with growth factor was denied byinsurance. 2. Following adjuvant systemic chemotherapy maintenance pazopanib letrozole indefinite/till progression. 3. Refered to urology for left renal pelvis calculus with mild hydronephrosis. Given history of recurrent kidney stones but has never seen a urologist before. Impression and plan discussed with patient . Imani Persaud MD [facility] Department Supervisor, [facility] Divisions of Medical Oncology & Hematology Department of Internal Medicine [place] [id number] This note was generated using a voice recognition system software. Although itwas reviewed by the author prior to finalization, it may still contain incorrectwords, spelling, and punctuation that were not noted when reviewing prior to saving. If a clinically significant typo or inaccurately typed phrase is noted, please notify the author. 04/19/25 9918 <Electronically signed by Imani jones MD> Date _ Imani Persaud MD [facility] Signature: Date (if applicable) CC: ~ [facility] Work Phone: Reason for referral (narrative)* Diagnostic Procedure Only (Routine) - Pending Review Specialty Diagnoses / Procedures Referred By Contac t Referred To Contact US IMAGING Diagnoses Neck mass Procedures US HEAD/NECK SOFT TISSUE OTHER US SOFT TISSUE HEAD & NECK REAL TIME IMGE David Garcia MD [address] [place] [address] Us Imaging Referral ID Status Reason Start Date Expiration Date Visits Requested Visits Authorized [id number] Pending Review Auto-Generat ed Referral 07/27/2022 08/26/2023 1 1 * Consult, Test, Treat (Routine) - Authorized Specialty Diagnoses / Procedures Referred By Contac t Referred To Contact General Surgery Diagnoses Blood in stool Procedures CONSULT TO GENERAL SURGERY OFFICE/OUTPATIENT [facility] MDM 60-74 MINUTES David Fink MD [address] [place] [address] Referral ID Status Reason Start Date Expiration Date Visits Requested Visits Authorized [id number] Authorized PCP Requested Referral 07/27/2022 07/27/2023 1 1 [facility] for referral (narrative)* Diagnostic Procedure Only (Routine) - Closed Specialty Diagnoses / Procedures Referred By Contac t Referred To Contact BR IMAGING Diagnoses Obesity, Class I, BMI 30-34.9 Procedures BRITTANY SCREENING SCREENING MAMMOGRAPHY BI 2-VIEW BREAST INC CAD Sunday Cr PA-C [address] [place] [address] Br Imaging [address] [place] [address] Referral ID Status Reason Start Date Expiration Date V isits Requested Visits Authorized [id number] Closed Auto-Generate d Referral 07/23/2022 08/22/2023 1 1 [facility] for referral (narrative)* Outpatient Procedure (Routine) - Authorized Specialty Diagnoses / Procedures Referred By Contac t Referred To Contact [facility] Diagnoses Numbness Procedures EMG(NEURO/NI) NERVE CONDUCTION STUDIES 9-10 STUDIES David Fink MD [address] [place] [address] Neurological [facility] [address] [place] [address] Referral ID Status Reason Start Date Expiration Date Visits Requested Visits Authorized [id number] Authorized Auto-Generat ed Referral 01/26/2023 01/27/2024 1 1 * Diagnostic Procedure Only (Routine) - Closed Specialty Diagnoses / Procedures Referred By Contac t Referred To Contact XR IMAGING Diagnoses Right elbow pain Procedures XR ELBOW GENERAL 2V AP/LAT RIGHT RADEX ELBOW 2 VIEWS David Fink MD [address] [place] [address] Xr Imaging Referral ID Status Reason Start Date Expiration Date V isits Requested Visits Authorized [id number] Closed Auto-Generate d Referral 01/26/2023 02/25/2024 1 1 * Diagnostic Procedure Only (Routine) - Closed Specialty Diagnoses / Procedures Referred By Contac t Referred To Contact XR IMAGING Diagnoses Trigger little finger of right hand Procedures XR HAND GENERAL 3V PA/LAT/OBL RIGHT RADEX HAND MINIMUM 3 VIEWS David Fink MD [address] [place] [address] Xr Imaging Referral ID Status Reason Start Date Expiration Date V isits Requested Visits Authorized [id number] Closed Auto-Generate d Referral 01/26/2023 02/25/2024 1 1 [facility] for referral (narrative)* Diagnostic Procedure Only (Routine) - Closed Specialty Diagnoses / Procedures Referred By Contac t Referred To Contact XR IMAGING Diagnoses Right elbow pain Procedures XR ELBOW GENERAL 2V AP/LAT RIGHT RADEX ELBOW 2 VIEWS David Fink MD [address] [place] [address] [place] [address] Referral ID Status Reason Start Date Expiration Date V isits Requested Visits Authorized [id number] Closed Auto-Generate d Referral 01/26/2023 02/25/2024 1 1 * Diagnostic Procedure Only (Routine) - Closed Specialty Diagnoses / Procedures Referred By Contac t Referred To Contact XR IMAGING Diagnoses Trigger little finger of right hand Procedures XR HAND GENERAL 3V PA/LAT/OBL RIGHT RADEX HAND MINIMUM 3 VIEWS David Fink MD [address] [place] [address] [place] [address] Referral ID Status Reason Start Date Expiration Date V isits Requested Visits Authorized [id number] Closed Auto-Generate d Referral 01/26/2023 02/25/2024 1 1 [facility] for referral (narrative)* Diagnostic Procedure Only (Routine) - Authorized Specialty Diagnoses / Procedures Referred By Contac t Referred To Contact BR IMAGING Diagnoses Encounter for screening mammogram for breast cancer Procedures BRITTANY SCREENING W ALFONSO SCREENING DIGITAL BREAST TOMOSYNTHESIS BI SCREENING MAMMOGRAPHY BI 2-VIEW BREAST INC Susy Shaver APRN.CRACKER AND 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 [address] [place] [address] Br Imaging [address] [facility] [place] [address] Referral ID Status Reason Start Date Expiration Date Visits Requested Visits Authorized [id number] Authorized Auto-Generat ed Referral 10/25/2025 1 [facility] Diagnostic Procedure Only (Routine) - New Request Specialty Diagnoses / Procedures Referred By Contac t Referred To Contact BR IMAGING Diagnoses Encounter for screening mammogram for malignant neoplasm of breast Procedures BRITTANY SCREENING W ALFONSO SCREENING DIGITAL BREAST TOMOSYNTHESIS BI SCREENING MAMMOGRAPHY BI 2-VIEW BREAST INC Susy Shaver APRN.CRACKER AND 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 [address] [place] [address], [place] [address] Br Imaging [address] [place] [address] Referral ID Status Reason Start Date Expiration Date Visits Requested Visits Authorized [id number] New Request Auto-Generat ed Referral 10/25/2025 1 1 [facility] for referral (narrative)No reason for referral information [facility] Work Phone: Reason for visit Narrative* Diagnostic Procedure Only (Routine) - Closed Specialty Diagnoses / Procedures Referred By Contac t Referred To Contact BR IMAGING Diagnoses Obesity, Class I, BMI 30-34.9 Procedures BRITTANY SCREENING SCREENING MAMMOGRAPHY BI 2-VIEW BREAST INC CAD Sunday Cr PA-C [address] [place] [address] Br Imaging [address] [place] [address] Referral ID Status Reason Start Date Expiration Date V isits Requested Visits Authorized [id number] Closed Auto-Generate d Referral 07/23/2022 08/22/2023 1 1 [facility] for visit Narrative* Diagnostic Procedure Only (Routine) - Closed Specialty Diagnoses / Procedures Referred By Contac t Referred To Contact BR IMAGING Diagnoses Encounter for screening mammogram for malignant neoplasm of breast Procedures BRITTANY SCREENING SCREENING MAMMOGRAPHY BI 2-VIEW BREAST INC CAD David Fink MD [address] [place] [address] Br Imaging [address] [place] [address] Referral ID Status Reason Start Date Expiration Date V isits Requested Visits Authorized [id number] Closed Auto-Generate d Referral 08/31/2023 09/29/2024 1 1 [facility] for visit Narrative* Diagnostic Procedure Only (Routine) - Closed Specialty Diagnoses / Procedures Referred By Contac t Referred To Contact XR IMAGING Diagnoses Right elbow pain Procedures XR ELBOW GENERAL 2V AP/LAT RIGHT RADEX ELBOW 2 VIEWS David Fink MD [address] [place] [address] [place] [address] Referral ID Status Reason Start Date Expiration Date V isits Requested Visits Authorized [id number] Closed Auto-Generate d Referral 01/26/2023 02/25/2024 1 1 [facility] for visit Narrative* Diagnostic Procedure Only (Routine) - Closed Specialty Diagnoses / Procedures Referred By Lisa melchor Referred To Contact BR IMAGING Diagnoses Encounter for screening mammogram for breast cancer Procedures BRITTANY SCREENING W ALFONSO SCREENING DIGITAL BREAST TOMOSYNTHESIS BI SCREENING MAMMOGRAPHY BI 2-VIEW BREAST INC CAD Susy Smith, BLADDER BLOWER.CRACKER AND 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 [address] [place] [address] Br Imaging [address] [facility] [place] [address] Referral ID Status Reason Start Date Expiration Date V isits Requested Visits Authorized [id number] Closed Auto-Generate d Referral 09/25/2024 10/25/2025 1 1 [facility] for visit Narrative* Auth/Cert (Routine) Specialty Diagnoses / Procedures Referred By Lisa melchor Referred To Contact Diagnoses Intra-abdominal and pelvic swelling, mass and lump, unspecified site Procedures FL EXPLORATORY LAPAROTOMY CELIOTOMY W/WO BIOPSY SPX FL LAPAROSCOPY W/RMVL ADNEXAL STRUCTURES FL LMTD LMPHADEC STAGING SPX PEL&PARA-AORTIC FL LAPAROSCOPY SURG W/BX SINGLE/MULTIPLE LAPAROTOMY, EXPLORATORY LEFT LAPAROSCOPIC, SALPINGO-OOPHORECTOMY POSSIBLE LYMPHADENECTOMY, PARA-AORTIC OR PELVIC, LIMITED, FOR STAGING LAPAROSCOPY, WITH BIOPSY Darvin Grady MD [address] [facility] [address] [place] [address] Phone: tel: fax: Referral ID Status Reason Start Date Expiration Date Visits Re quested Visits Authorized [id number] 01/17/2025 1 1 [facility] Chief Complaint and Reason for Visit Chief Complaint ATHEROSCLEROTIC HEAR T DISEASE Chief Complaint ATHEROSCLEROTIC HEAR T DISEASE TOTAL ABDOMINAL HYSTER, BSO Reason for Visit Menorrhagia Uterine fibroid Anemia due to chronic blood loss Chief Complaint EORDER 1 Y FU E ORDER Reason for Visit High cholesterol Essential (primary) hypertension History of coronary artery stent placement Chief Complaint Admit Date LOWER ABDOMINAL PAIN January 08, 2025 5:56pm LEFT PELVIC MASS January 10, 2025 12:54pm Intra-abdominal and pelvic swelling, mas s and lump January 12, 2025 12:54pm Reason for Visit Admit Date Pelvic mass January 10, 2025 12:54pm Chief Complaint Admit Date LOWER ABDOMINAL PAIN January 08, 2025 5:56pm LEFT PELVIC MASS January 10, 2025 12:54pm Intra-abdominal and pelvic swelling, mas s and lump January 12, 2025 12:54pm 3 WK POST OP [facility] DR[facility] GRADY(PATH/NOTE -SCANNED ) February 26, 2025 10:59am PORT PLACEMENT March 26, 2025 1:19p m PELVIC CANCER March 26, 2025 3:27p m F/U AFTER DR. CUNNINGHAM March 28, 2025 3:3 0pm Reason for Visit Admit Date Pelvic mass January 10, 2025 12:54pm Primary leiomyosarcoma of pelvis February 132024 10:59am Encounter for insertion of venous access port March 26, 2025 1:19pm Primary leiomyosarcoma of pelvis March 3:30pm Chief Complaint Admit Date LOWER ABDOMINAL PAIN January 08, 2025 5:56pm LEFT PELVIC MASS January 10, 2025 12:54pm Intra-abdominal and pelvic swelling, mas s and lump January 12, 2025 12:54pm 3 WK POST OP [facility] DR[facility] GRADY(PATH/NOTE -SCANNED ) February 26, 2025 10:59am PORT PLACEMENT March 26, 2025 1:19p m PELVIC CANCER March 26, 2025 3:27p m F/U AFTER DR. CUNNINGHAM March 28, 2025 3:3 0pm Insertion, Vascular Port right possible left April 02, 2025 9:39am Insertion, Vascular Port right possible left April 02, 2025 11:20am Chief Complaint Admit Date LOWER ABDOMINAL PAIN January 08, 2025 5:56pm LEFT PELVIC MASS January 10, 2025 12:54pm [facility] - LABS - GEMCITABINE January 10, 2025 1:23pm Intra-abdominal and pelvic swelling, mas s and lump January 12, 2025 12:54pm 3 WK POST OP [facility] GRADY(PATH/NOTE -SCANNED ) February 26, 2025 10:59am PORT PLACEMENT March 26, 2025 1:19p m PELVIC CANCER March 26, 2025 3:27p m F/U AFTER DR. CUNNINGHAM March 28, 2025 3:3 0pm Insertion, Vascular Port right possible left April 02, 2025 9:39am Insertion, Vascular Port right possible left April 02, 2025 11:20am CHEMO ED April 04, 2025 1:47p m Reason for Visit Admit Date Pelvic mass January 10, 2025 12:54pm Primary leiomyosarcoma of pelvis February 132024 10:59am Encounter for insertion of venous access port March 26, 2025 1:19pm Primary leiomyosarcoma of pelvis March 3:30pm Encounter for education April 04, 2025 1 :47pm Primary leiomyosarcoma of pelvis March 1:47pm Chief Complaint Admit Date LOWER ABDOMINAL PAIN January 08, 2025 5:56pm LEFT PELVIC MASS January 10, 2025 12:54pm Intra-abdominal and pelvic swelling, mas s and lump January 12, 2025 12:54pm 3 WK POST OP [facility] DR. GRADY(PATH/NOTE -SCANNED ) February 26, 2025 10:59am PORT PLACEMENT March 26, 2025 1:19p m PELVIC CANCER March 26, 2025 3:27p m F/U AFTER DR. CUNNINGHAM March 28, 2025 3:3 0pm Insertion, Vascular Port right possible left April 02, 2025 9:39am Insertion, Vascular Port right possible left April 02, 2025 11:20am CHEMO ED April 04, 2025 1:47p m 1 Y FU April 18, 2025 10:44 am NEW START - LABS - GEMCITABINE April 19, 2025 8:09am NEW START - LABS - GEMCITABINE April 19, 2025 8:15am Reason for Visit Admit Date Pelvic mass January 10, 2025 12:54pm Primary leiomyosarcoma of pelvis February 132024 10:59am Encounter for insertion of venous access port March 26, 2025 1:19pm Primary leiomyosarcoma of pelvis March 3:30pm Encounter for education April 04, 2025 1 :47pm Primary leiomyosarcoma of pelvis March 1:47pm Essential (primary) hypertension April 10:44am High cholesterol April 18, 2025 10:44 am Tobacco abuse April 18, 2025 10:44 am History of coronary artery stent placeme nt April 18, 2025 10:44am Primary leiomyosarcoma of pelvis April 8:09am Chief Complaint Admit Date LOWER ABDOMINAL PAIN January 08, 2025 5:56pm LEFT PELVIC MASS January 10, 2025 12:54pm Intra-abdominal and pelvic swelling, mas s and lump January 12, 2025 12:54pm 3 WK POST OP [facility] DR[facility] GRADY(PATH/NOTE -SCANNED ) February 26, 2025 10:59am PORT PLACEMENT March 26, 2025 1:19p m PELVIC CANCER March 26, 2025 3:27p m F/U AFTER DR. CUNNINGHAM March 28, 2025 3:3 0pm Insertion, Vascular Port right possible left April 02, 2025 9:39am Insertion, Vascular Port right possible left April 02, 2025 11:20am CHEMO ED April 04, 2025 1:47p m 1 Y FU April 18, 2025 10:44 am NEW START - LABS - GEMCITABINE April 19, 2025 8:09am NEW START - LABS - GEMCITABINE April 7:45am 1WK LABS [place]-NEW April 26, 2025 8:12 am Reason for Visit Admit Date Pelvic mass January 10, 2025 12:54pm Primary leiomyosarcoma of pelvis February 132024 10:59am Encounter for insertion of venous access port March 26, 2025 1:19pm Primary leiomyosarcoma of pelvis March 3:30pm Encounter for education April 04, 2025 1 :47pm Primary leiomyosarcoma of pelvis March 1:47pm Essential (primary) hypertension April 10:44am High cholesterol April 18, 2025 10:44 am Tobacco abuse April 18, 2025 10:44 am History of coronary artery stent placeme nt April 18, 2025 10:44am Primary leiomyosarcoma of pelvis April 8:09am Primary leiomyosarcoma of pelvis April 262024 8:12am Advance Directives No Advanced Directives Records Found Advance Directive Response Recorded Date/ Time Living Will No May 21, 2022 1 1:02am Power of Strike Off Machine Operator No May 21, 2022 11:02am Advance Directive Response Recorded Date/ Time Living Will No May 28, 2022 2:48pm Power of Strike Off Machine Operator No May 28 2:48pm Advance Directive Response Recorded Date/ Time Living Will No May 28, 2022 1:48pm Power of Strike Off Machine Operator No May 28 1:48pm Date Activated Date Inactivated Comments 01/26/2025 6:33 AM 01/27/2025 2:16 PM Advance Directive Response Recorded Date/ Time Living Will No January 08, 2 025 8:27pm Power of Strike Off Machine Operator No January 08, 2025 8:27pm Date Activated Date Inactivated Comments 01/26/2025 6:33 AM 01/27/2025 2:16 PM Advance Directive Response Recorded Date/ Time Living Will No January 08, 2 025 8:27pm Do you have a Healthcare Power of Strike Off Machine Operator? No January 08, 2025 8:27pm Advance Directive Response Recorded Date/ Time Living Will No January 08, 8:27pm Do you have a Healthcare Power of Strike Off Machine Operator? No January 08, 2025 8:27pm Do you have a Healthcare Power of Strike Off Machine Operator? No March 28, 2025 2:20pm Advance Directive Response Recorded Date/ Time Advance Directives on File No April 19, 2025 10:08am Living Will No April 19, 2025 1 0:08am Do you have a Healthcare Power of Strike Off Machine Operator? No April 19, 2025 10:08am Advance Directives No April 19 10:08am Living Will No January 08, 8:27pm Do you have a Healthcare Power of Strike Off Machine Operator? No January 08, 2025 8:27pm Do you have a Healthcare Power of Strike Off Machine Operator? No March 28, 2025 2:20pm Family History No Family History Records Found Relationship Condition Age at Onset Recorded Date/T catalina Not Specified Cardiac disease Unknown father Kidney disorder Unknown aunt Malignant neoplasm Unknown Summary Purpose Additional Source Comments Source Comments (unrecognize d section and content) In the event this informatio n is protected by the Federal Confidentiality of Alcohol and Drug Abuse Patient Records regulations: The Federal rules restrict any use of the information to criminally investigate or prosecute any alcohol or drug abuse patient.[facility] the event this information is protected by the Federal Confidentiality of Alcohol and Drug Abuse Patient Records regulations: The Federal rules restrict any use of the information to criminally investigate or prosecute any alcohol or drug abuse patient.[facility]In the event this information is protected by the Federal Confidentiality of Alcohol and Drug Abuse Patient Records regulations: The Federal rules restrict any use of the information to criminally investigate or prosecute any alcohol or drug abuse patient.[facility]In the event this information is protected by the Federal Confidentiality of Alcohol and Drug Abuse Patient Records regulations: The Federal rules restrict any use of the information to criminally investigate or prosecute any alcohol or drug abuse patient.[facility]In the event this information is protected by the Federal Confidentiality of Alcohol and Drug Abuse Patient Records regulations: The Federal rules restrict any use of the information to criminally investigate or prosecute any alcohol or drug abuse patient.[facility] HospitalIn the event this information is protected by the Federal Confidentiality of Alcohol and Drug Abuse Patient Records regulations: The Federal rules restrict any use of the information to criminally investigate or prosecute any alcohol or drug abuse patient.[facility] HospitalIn the event this information is protected by the Federal Confidentiality of Alcohol and Drug Abuse Patient Records regulations: The Federal rules restrict any use of the information to criminally investigate or prosecute any alcohol or drug abuse patient.[facility]In the event this information is protected by the Federal Confidentiality of Alcohol and Drug Abuse Patient Records regulations: The Federal rules restrict any use of the information to criminally investigate or prosecute any alcohol or drug abuse patient.[facility] HospitalIn the event this information is protected by the Federal Confidentiality of Alcohol and Drug Abuse Patient Records regulations: The Federal rules restrict any use of the information to criminally investigate or prosecute any alcohol or drug abuse patient.[facility] HospitalIn the event this information is protected by the Federal Confidentiality of Alcohol and Drug Abuse Patient Records regulations: The Federal rules restrict any use of the information to criminally investigate or prosecute any alcohol or drug abuse patient.[facility] HospitalIn the event this information is protected by the Federal Confidentiality of Alcohol and Drug Abuse Patient Records regulations: The Federal rules restrict any use of the information to criminally investigate or prosecute any alcohol or drug abuse patient.[facility] HospitalIn the event this information is protected by the Federal Confidentiality of Alcohol and Drug Abuse Patient Records regulations: The Federal rules restrict any use of the information to criminally investigate or prosecute any alcohol or drug abuse patient.[facility] HospitalIn the event this information is protected by the Federal Confidentiality of Alcohol and Drug Abuse Patient Records regulations: The Federal rules restrict any use of the information to criminally investigate or prosecute any alcohol or drug abuse patient.[facility] HospitalIn the event this information is protected by the Federal Confidentiality of Alcohol and Drug Abuse Patient Records regulations: The Federal rules restrict any use of the information to criminally investigate or prosecute any alcohol or drug abuse patient.[facility] HospitalIn the event this information is protected by the Federal Confidentiality of Alcohol and Drug Abuse Patient Records regulations: The Federal rules restrict any use of the information to criminally investigate or prosecute any alcohol or drug abuse patient.[facility] HospitalIn the event this information is protected by the Federal Confidentiality of Alcohol and Drug Abuse Patient Records regulations: The Federal rules restrict any use of the information to criminally investigate or prosecute any alcohol or drug abuse patient.[facility] HospitalIn the event this information is protected by the Federal Confidentiality of Alcohol and Drug Abuse Patient Records regulations: The Federal rules restrict any use of the information to criminally investigate or prosecute any alcohol or drug abuse patient.[facility] HospitalIn the event this information is protected by the Federal Confidentiality of Alcohol and Drug Abuse Patient Records regulations: The Federal rules restrict any use of the information to criminally investigate or prosecute any alcohol or drug abuse patient.[facility] HospitalIn the event this information is protected by the Federal Confidentiality of Alcohol and Drug Abuse Patient Records regulations: The Federal rules restrict any use of the information to criminally investigate or prosecute any alcohol or drug abuse patient.[facility] HospitalIn the event this information is protected by the Federal Confidentiality of Alcohol and Drug Abuse Patient Records regulations: The Federal rules restrict any use of the information to criminally investigate or prosecute any alcohol or drug abuse patient.[facility] HospitalIn the event this information is protected by the Federal Confidentiality of Alcohol and Drug Abuse Patient Records regulations: The Federal rules restrict any use of the information to criminally investigate or prosecute any alcohol or drug abuse patient.[facility] HospitalIn the event this information is protected by the Federal Confidentiality of Alcohol and Drug Abuse Patient Records regulations: The Federal rules restrict any use of the information to criminally investigate or prosecute any alcohol or drug abuse patient.[facility] HospitalIn the event this information is protected by the Federal Confidentiality of Alcohol and Drug Abuse Patient Records regulations: The Federal rules restrict any use of the information to criminally investigate or prosecute any alcohol or drug abuse patient.[facility] HospitalIn the event this information is protected by the Federal Confidentiality of Alcohol and Drug Abuse Patient Records regulations: The Federal rules restrict any use of the information to criminally investigate or prosecute any alcohol or drug abuse patient.[facility] HospitalIn the event this information is protected by the Federal Confidentiality of Alcohol and Drug Abuse Patient Records regulations: The Federal rules restrict any use of the information to criminally investigate or prosecute any alcohol or drug abuse patient.[facility] HospitalIn the event this information is protected by the Federal Confidentiality of Alcohol and Drug Abuse Patient Records regulations: The Federal rules restrict any use of the information to criminally investigate or prosecute any alcohol or drug abuse patient.[facility] HospitalIn the event this information is protected by the Federal Confidentiality of Alcohol and Drug Abuse Patient Records regulations: The Federal rules restrict any use of the information to criminally investigate or prosecute any alcohol or drug abuse patient.[facility] HospitalIn the event this information is protected by the Federal Confidentiality of Alcohol and Drug Abuse Patient Records regulations: The Federal rules restrict any use of the information to criminally investigate or prosecute any alcohol or drug abuse patient.[facility] HospitalIn the event this information is protected by the Federal Confidentiality of Alcohol and Drug Abuse Patient Records regulations: The Federal rules restrict any use of the information to criminally investigate or prosecute any alcohol or drug abuse patient.[facility] HospitalIn the event this information is protected by the Federal Confidentiality of Alcohol and Drug Abuse Patient Records regulations: The Federal rules restrict any use of the information to criminally investigate or prosecute any alcohol or drug abuse patient.[facility] HospitalIn the event this information is protected by the Federal Confidentiality of Alcohol and Drug Abuse Patient Records regulations: The Federal rules restrict any use of the information to criminally investigate or prosecute any alcohol or drug abuse patient.[facility] HospitalIn the event this information is protected by the Federal Confidentiality of Alcohol and Drug Abuse Patient Records regulations: The Federal rules restrict any use of the information to criminally investigate or prosecute any alcohol or drug abuse patient.[facility] HospitalIn the event this information is protected by the Federal Confidentiality of Alcohol and Drug Abuse Patient Records regulations: The Federal rules restrict any use of the information to criminally investigate or prosecute any alcohol or drug abuse patient.[facility] HospitalIn the event this information is protected by the Federal Confidentiality of Alcohol and Drug Abuse Patient Records regulations: The Federal rules restrict any use of the information to criminally investigate or prosecute any alcohol or drug abuse patient.[facility] HospitalIn the event this information is protected by the Federal Confidentiality of Alcohol and Drug Abuse Patient Records regulations: The Federal rules restrict any use of the information to criminally investigate or prosecute any alcohol or drug abuse patient.[facility] HospitalIn the event this information is protected by the Federal Confidentiality of Alcohol and Drug Abuse Patient Records regulations: The Federal rules restrict any use of the information to criminally investigate or prosecute any alcohol or drug abuse patient.[facility] HospitalIn the event this information is protected by the Federal Confidentiality of Alcohol and Drug Abuse Patient Records regulations: The Federal rules restrict any use of the information to criminally investigate or prosecute any alcohol or drug abuse patient.[facility] HospitalIn the event this information is protected by the Federal Confidentiality of Alcohol and Drug Abuse Patient Records regulations: The Federal rules restrict any use of the information to criminally investigate or prosecute any alcohol or drug abuse patient.[facility] HospitalIn the event this information is protected by the Federal Confidentiality of Alcohol and Drug Abuse Patient Records regulations: The Federal rules restrict any use of the information to criminally investigate or prosecute any alcohol or drug abuse patient.[facility] Reason for Visit (unrecogniz ed section and content) Reason Comments Appointment Reason Onset Date Comments Refill Request 02/27/2022 Reason Comments Schedule Surgery Reason Comments Discussion Specialty Diagnoses / Procedures Referred By Lisa t Referred To Contact REVENUE SPECIALIST Diagnoses Medication and surgery Procedures MYC SPECIALIST OFFICE VISIT Kyleigh Saucedo MD [address] [place] [address] Kyleigh Saucedo MD [address] [place] [address] Referral ID Status Reason Start Date Expiration Date V isits Requested Visits Authorized [id number] Closed Financial Clearance Required - Self Pay Patient Cleared - True Self-Pay required payment collected 03/18/2022 06/16/2022 1 1 Reason Onset Date Comments Refill Request 02/04/2022 Refill Request 04/09/2022 Reason Comments Cough Pt reported intermit tent SOB, nasal congestion +Covid exposure x2 wks prior Reason Onset Date Comments Refill Request 05/04/2022 Reason Comments Pre-Op Visit Reason Comments Post Op incision Reason Comments Post Op Reason Comments Establish Care Reason Comments Results Reason Comments Patient Question Reason Comments 6 Month Exam Reason Comments Telemedicine Reason Comments Follow Up Starting zoloft Reason Comments Cough Congestion and fever x4 days Reason Comments Nasal Congestion drainage, cough, sor e throat x 1 month Reason Comments Cough Chest congestion and tightness, SOB, wheezing x1 week Reason Comments Orders Reason Comments Urinary Problem burning with urinati on x 4 days Reason Onset Date Comments Results 12/25/2024 Reason Comments Female Problem Specialty Diagnoses / Procedures Referred By Contac t Referred To Contact Gynecologic Oncology Diagnoses Intra-abdominal and pelvic swelling, mass and lump, unspecified site Procedures FL OFFICE/OUTPATIENT [facility] 60 MINUTES Imani Persaud [address] [facility], [facility], [address] [place] [address] Phone: tel: fax: [facility] Gynecologic Oncology - [place] [address] [place] [address] Phone: tel: fax: Referral ID Status Reason Start Date Expiration Date V isits Requested Visits Authorized [id number] Pending Review 01/16/2025 01/16/2026 1 1 Reason Onset Date Comments Other 01/19/2025 Surgery [facility] Reason Comments Post-op Visit 2 wks IPO Reason Comments New Patient Specialty Diagnoses / Procedures Referred By Contac t Referred To Contact Oncology Diagnoses 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 Imani Persaud MB [facility] [address] [place] [address] Phone: tel: fax: Christopher Cunningham MD [address] [place] [address] Phone: tel: fax: Referral ID Status Reason Start Date Expiration Date Visits Requested Visits Authorized [id number] New Request Clinical Trial 02/27/2025 03/24/2026 1 1 Goals (unrecognized section and content) Goals may be documented in a n alternate sectionGoals may be documented in an alternate sectionGoals may be documented in an alternate sectionGoals may be documented in an alternate sectionGoals may be documented in an alternate section Care Teams (unrecognized sec tion and content) Furnace Builder Relationship Specialty Start Date End Date David Fink MD [address] [place], [place] [id number] PCP - General Family Practice 07/27/22 Furnace Builder Relationship Specialty Start Date End Date David Fink MD [address] [place], [place] [id number] PCP - General Family Practice 07/27/22 Furnace Builder Relationship Specialty Start Date End Date David Fink MD [address] [place], [place] [id number] PCP - General Family Practice 07/27/22 Furnace Builder Relationship Specialty Start Date End Date David Fink MD [address] [place], [place] [id number] PCP - General Family Practice 07/27/22 Furnace Builder Relationship Specialty Start Date End Date David Fink MD [address] [place] [address] PCP - General Family Medicine 07/27/22 Furnace Builder Relationship Specialty Start Date End Date David Fink MD [address] [place], [place] [id number] PCP - General Family Medicine 07/27/22 Team Status: Active Member Role Status Dates Meagan Weinstein PRODUCT SUPPORT ENGINEER, PRODUCT SUPPORT ENGINEER-C Family Provider Active Dr. David Fink MD Primary Care Provider Active Team Status: Inactive Member Role Status No Primary Care Physician Referring Provider Active Dr. Joni Michel MD Attending Provider Active Dr. David Fink MD Primary Care Provider Active Team Status: Inactive Member Role Status Dates Dr. David Fink MD Primary Care Provider Active Cristin Pettit PA, PA Attending Provider, Referr ing Provider Active Team Status: Active Member Role Status Dates Dr. David Fink MD Primary Care Provider Active Dr. Joni Michel MD Attending Provider Active Furnace Builder Relationship Specialty Start Date End Date David Fink MD [address] [place] [address] PCP - General Family Medicine 07/27/22 Furnace Builder Relationship Specialty Start Date End Date David Fink MD [address] [place] [address] PCP - General Family Medicine 07/27/22 Furnace Builder Relationship Specialty Start Date End Date David Fink MD [address] [place] [address] PCP - General Family Medicine 07/27/22 Furnace Builder Relationship Specialty Start Date End Date David Fink MD [address] [place] [address] PCP - General Family Medicine 07/27/22 Furnace Builder Relationship Specialty Start Date End Date David Fink MD [address] [place] [address] PCP - General Family Medicine 07/27/22 Furnace Builder Relationship Specialty Start Date End Date David Fink MD [address] [place] [address] PCP - General Family Medicine 07/27/22 Furnace Builder Relationship Specialty Start Date End Date David Fink MD [address] [place] [address] PCP - General Family Medicine 07/27/22 Furnace Builder Relationship Specialty Start Date End Date David Fink MD [address] [place] [address] PCP - General Family Medicine 07/27/22 Furnace Builder Relationship Specialty Start Date End Date David Fink MD [address] [place] [address] PCP - General Family Medicine 07/27/22 Furnace Builder Relationship Specialty Start Date End Date David Fink MD [address] [place] [address] PCP - General Family Medicine 07/27/22 Furnace Builder Relationship Specialty Start Date End Date David Fink MD [address] [place], [place] [address] PCP - General Family Medicine 07/27/22 Furnace Builder Relationship Specialty Start Date End Date David Fink MD [address] [place] [address] PCP - General Family Medicine 07/27/22 Furnace Builder Relationship Specialty Start Date End Date David Fink MD [address] [facility] [place], [place] [id number] PCP - General Family Medicine 07/27/22 Furnace Builder Relationship Specialty Start Date End Date David Fink MD [address] [facility] [place] [address] PCP - General Family Medicine 07/27/22 Furnace Builder Relationship Specialty Start Date End Date David Fink MD [address] [facility] [place] [address] PCP - General Family Medicine 07/27/22 Hilda Morin BLADDER BLOWER.CRACKER AND 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 [address] [place] [address] Manager Beauty Family Medicine 10/23/24 India Clifton BLADDER BLOWER.CRACKER AND 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 [address] [facility] [place] [address] Manager Beauty Family Medicine 10/23/24 Furnace Builder Relationship Specialty Start Date End Date David Fink MD [address] [place] [address] PCP - General Family Medicine 07/27/22 Hilda Morin BLADDER BLOWER.CRACKER AND 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 [address] [place] [address] Manager Beauty Family Medicine 10/23/24 India Clifton BLADDER BLOWER.CRACKER AND 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 [address] [place] [address] Manager Beauty Family Medicine 10/23/24 Furnace Builder Relationship Specialty Start Date End Date David Fink MD [address] [place], [place] [address] PCP - General Family Medicine 01/17/25 Darvin Grady MD [address] [place] [address] Consulting Physician Gynecologic Oncology 01/16/25 Furnace Builder Relationship Specialty Start Date End Date David Fink MD [address] [place], [place] [id number] PCP - General Family Medicine 01/17/25 Darvin Grady MD [address] [place], [place] [id number] Consulting Physician Gynecologic Oncology 01/16/25 Furnace Builder Relationship Specialty Start Date End Date David Fink MD [address] [place] [address] PCP - General Family Medicine 01/17/25 Darvin Grady MD [address] [place] [address] Consulting Physician Gynecologic Oncology 01/16/25 Furnace Builder Relationship Specialty Start Date End Date David Fink MD [address] [place] [address] PCP - General Family Medicine 01/17/25 Darvin Grady MD [address] [place] [address] Consulting Physician Gynecologic Oncology 01/16/25 Team Status: Active Member Role Status Dates Dr. David Fink MD Primary Care Provider Active Team Status: Inactive Member Role Status Dates Dr. David Fink MD Primary Care Provider Active Start: January 08, 2025 End: January 08, 2025 Dr. Isaiah Villanueva DO Attending Provider Active Start: January 08, 2025 End: January 08, 2025 Dr. Isaiah Villanueva DO Emergency Provider Active Start: January 08, 2025 End: January 08, 2025 Team Status: Inactive Member Role Status Dates Dr. David Fink MD Primary Care Provider Active Start: January 10, 2025 End: January 10, 2025 Dr. Imani Persaud MD Attending Provider Active Start: January 10, 2025 End: January 10, 2025 LONG Sanders Referring Provider Active Start: January 10, 2025 End: January 10, 2025 Team Status: Active Member Role Status Dates Dr. David Fink MD Primary Care Provider Active Start: January 10, 2025 Dr. Imani Persaud MD Attending Provider Active Start: January 10, 2025 Dr. Imani Persaud MD Referring Provider Active Start: January 10, 2025 Team Status: Inactive Member Role Status Dates Dr. David iFnk MD Primary Care Provider Active Start: January 12, 2025 End: January 12, 2025 Dr. Imani Persaud MD Attending Provider Active Start: January 12, 2025 End: January 12, 2025 Dr. Imani Persaud MD Referring Provider Active Start: January 12, 2025 End: January 12, 2025 Furnace Builder Relationship Specialty Start Date End Date David Fink MD [address] [place] [address] PCP - General Family Medicine 01/17/25 Darvin Grady MD [address] [facility] [address] [place] [address] Consulting Physician Gynecologic Oncology 01/16/25 Ashok Herbert, BLADDER BLOWER - CRACKER AND 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 [address] [facility] [address] [place] [address] Nurse Practitioner Nurse Practitioner 02/14/25 Furnace Builder Relationship Specialty Start Date End Date David Fink MD [address] [place] [address] PCP - General Family Medicine 01/17/25 Darvin Grady MD [address] [place] [address] Consulting Physician Gynecologic Oncology 01/16/25 Ashok Herbert, BLADDER BLOWER - CRACKER AND 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 [address] [place] [address] Nurse Practitioner Nurse Practitioner 02/14/25 Furnace Builder Relationship Specialty Start Date End Date David Fink MD [address] [place] [address] PCP - General Family Medicine 01/17/25 Darvin Grady MD [address] [place] [address] Consulting Physician Gynecologic Oncology 01/16/25 Ashok Herbert, BLADDER BLOWER - CRACKER AND 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 [address] [place] [address] Nurse Practitioner Nurse Practitioner 02/14/25 Furnace Builder Relationship Specialty Start Date End Date David Fink MD [address] [place] [address] PCP - General Family Medicine 01/17/25 Darvin Grady MD [address] [place] [address] Consulting Physician Gynecologic Oncology 01/16/25 Ashok Herbert, BLADDER BLOWER - CRACKER AND 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 [address] [facility] [address] [place] [address] Nurse Practitioner Nurse Practitioner 02/14/25 Furnace Builder Relationship Specialty Start Date End Date David Fink MD [address] [place] [address] PCP - General Family Medicine 01/17/25 Darvin Grady MD [address] [facility] [address] [place] [address] Consulting Physician Gynecologic Oncology 01/16/25 Ashok Herbert, BLADDER BLOWER - CRACKER AND 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 [address] [facility] [address] [place] [address] Nurse Practitioner Nurse Practitioner 02/14/25 Team Status: Inactive Member Role Status Dates Dr. David Fink MD Primary Care Provider Active Start: February 26, 2025 End: February 26, 2025 Dr. David Fink MD Referring Provider Active Start: February 26, 2025 End: February 26, 2025 Dr. Imani Persaud MD Attending Provider Active Start: February 26, 2025 End: February 26, 2025 Team Status: Inactive Member Role Status Dates Dr. David Fink MD Primary Care Provider Active Start: March 26, 2025 End: March 26, 2025 Dr. David Fink MD Referring Provider Active Start: March 26, 2025 End: March 26, 2025 Dr. Theo Richard MD Attending Provider Active Start: March 26, 2025 End: March 26, 2025 Team Status: Active Member Role Status Dates Dr. David Fink MD Primary Care Provider Active Start: March 26, 2025 Dr. Imani Persaud MD Attending Provider Active Start: March 26, 2025 Dr. Imani Persaud MD Referring Provider Active Start: March 26, 2025 Team Status: Inactive Member Role Status Dates Dr. David Fink MD Primary Care Provider Active Start: March 28, 2025 End: March 28, 2025 Dr. David Fink MD Referring Provider Active Start: March 28, 2025 End: March 28, 2025 Dr. Imani Persaud MD Attending Provider Active Start: March 28, 2025 End: March 28, 2025 Team Status: Inactive Member Role Status Dates Dr. David Fink MD Primary Care Provider Active Start: March 26, 2025 End: March 26, 2025 Dr. Imani Persaud MD Attending Provider Active Start: March 26, 2025 End: March 26, 2025 Dr. Imani Persaud MD Referring Provider Active Start: March 26, 2025 End: March 26, 2025 Team Status: Inactive Member Role Status Dates Dr. David Fink MD Primary Care Provider Active Start: April 02, 2025 End: April 02, 2025 Dr. Theo Richard MD Attending Provider Active Start: April 02, 2025 End: April 02, 2025 Dr. Theo Richard MD Referring Provider Active Start: April 02, 2025 End: April 02, 2025 Team Status: Active Member Role Status Dates Dr. David Fink MD Primary Care Provider Active Start: April 02, 2025 Dr. Theo Richard MD Attending Provider Active Start: April 02, 2025 Dr. Theo Richard MD Referring Provider Active Start: April 02, 2025 Dr. Theo Richard MD Other Provider Active Start: April 02, 2025 Furnace Builder Relationship Specialty Start Date End Date David Fink MD [address] [place] [address] PCP - General Family Medicine 02/27/25 Imani Persaud MB [facility] [address] [place] [address] Oncologist Medical Oncology 02/27/25 Shannan Kearney RN Registered Nurse 02/27/25 Team Status: Inactive Member Role Status Dates Dr. David Fink MD Primary Care Provider Active Start: April 04, 2025 End: April 04, 2025 Dr. David Fink MD Referring Provider Active Start: April 04, 2025 End: April 04, 2025 Delmis Corral PRODUCT SUPPORT ENGINEER, PRODUCT SUPPORT ENGINEER-C Attending Provider Active Start: April 04, 2025 End: April 04, 2025 Team Status: Inactive Member Role Status Dates Dr. David Fink MD Primary Care Provider Active Start: April 18, 2025 End: April 18, 2025 Dr. David Fink MD Referring Provider Active Start: April 18, 2025 End: April 18, 2025 Keron Ross PRODUCT SUPPORT ENGINEER, PRODUCT SUPPORT ENGINEER-C Attending Provider Active S tart: April 18, 2025 End: April 18, 2025 Team Status: Inactive Member Role Status Dates Dr. David Fink MD Primary Care Provider Active Start: April 19, 2025 End: April 19, 2025 Dr. David Fink MD Referring Provider Active Start: April 19, 2025 End: April 19, 2025 Dr. Imani Persaud MD Attending Provider Active Start: April 19, 2025 End: April 19, 2025 Team Status: Active Member Role Status Dates Dr. David Fink MD Primary Care Provider Active Start: April 19, 2025 Dr. Imani Persaud MD Attending Provider Active Start: April 19, 2025 Dr. Imani Persaud MD Referring Provider Active Start: April 19, 2025 Team Status: Active Member Role Status Dates Dr. David Fink MD Primary Care Provider Active Start: April 26, 2025 Dr. Imani Persaud MD Attending Provider Active Start: April 26, 2025 Dr. Imani Persaud MD Referring Provider Active Start: April 26, 2025 Team Status: Inactive Member Role Status Dates Dr. David Fink MD Primary Care Provider Active Start: April 26, 2025 End: April 26, 2025 Dr. David Fink MD Referring Provider Active Start: April 26, 2025 End: April 26, 2025 Dr. Imani Persaud MD Attending Provider Active Start: April 26, 2025 End: April 26, 2025 Scheduled Active and Recently Administ ered Medications (unrecognized section and content) Medication Order 01/25/2025 01/26/2025 01/27/2025 acetaminophen (Tylenol) tablet 1,000 mg (COMPLETED) 1,000 mg, Oral, Once, On Wed01/26/25 at 0645, For 1 dose, Preprocedure, Maximum dose of acetaminophen is 4000 mg from all sources in 24 hours. Do not administer if patient has taken tylenol <6 hours earlier. Do not give if contraindicated ie. patient has active liver disease or cirrhosis. 0644 (Given - Provider: Segun Kimble RN) acetaminophen (Tylenol) tablet 1,000 mg 1,000 mg, Oral, Every 8 hours, First dose on Wed01/26/25 at 1400, Phase II/On Unit, Maximum dose of acetaminophen is 4000 mg from all sources in 24 hours. Alternate ibuprofen and acetaminophen every 4 hours. 1350 (Given - Provider: Jenny Torres RN)2156 (Given - Provider: Veda Hickman, RAMONE) 0509 (Given - Provider: Veda Hickman RN)1400 (Canceled Entry - Provider: Automatic Discharge Provider - Comment: Automatically canceled at discontinue of medication order) aspirin EC tablet 81 mg 81 mg, Oral, Daily, First dose on Wed01/27/25 at 0800, Do not crush, chew, or split. 0800 (Not Given - Provider: Gladis Rubalcava RN - Reason: Patient/family refused - Comment: takes at night) ceFAZolin in dextrose 4% (Ancef) IVPB 2,000 mg (COMPLETED)(Linked Group 1) 2,000 mg, IntraVENous, Administer over 30 Minutes, Once, On Wed01/26/25 at 0645, For 1 dose, Preprocedure, Administer within 1 hour prior to incision. premix bag, Suspected Indication (Select all that apply): Surgical Prophylaxis 0814 (Given - Provider: Skip Whittaker CRNA)0830 (Given - Provider: Skip Whittaker CRNA)1020 (Anesthesia Volume Adjustment - Provider: Skip Whittaker CRNA) ceFAZolin in dextrose 4% (Ancef) IVPB 2,000 mg (COMPLETED) 2,000 mg, IntraVENous, Administer over 30 Minutes, Every 8 hours, First dose on Wed01/26/25 at 1630, For 2 doses, premix bag, Suspected Indication (Select all that apply): Surgical Prophylaxis 1615 (New Bag - Provider: Jenny Torres RN)1645 (Stopped - Provider: Jenny Torres RN) 0055 (New Bag - Provider: Veda Hickman RN)0125 (Stopped - Provider: Veda Hickman RN) clopidogrel (Plavix) tablet 75 mg 75 mg, Oral, Daily, First dose on Wed01/26/25 at 1030, On hold since Wed01/26/2025 at 1025 until manually unheld 1025 (Held by provider - Provider: Wendie Thompson DO - Reason: Other)1030 (Dose Auto Held) 0800 (Dose Auto Held)1416 (Unheld by provider - Provider: Automatic Discharge Provider) famotidine (Pepcid) tablet 20 mg (COMPLETED)(Linked Group 2) 20 mg, Oral, Once, On Wed01/26/25 at 0645, For 1 dose, Preprocedure, IV or ORAL 0644 (Given - Provider: Segun Kimble RN) famotidine (Pepcid) tablet 20 mg 20 mg, Oral, 2 times daily, First dose on Wed01/26/25 at 2100 2156 (Given - Provider: Veda Hickman RN) 0913 (Given - Provider: Gladis Rubalcava, RAMONE) ketorolac (Toradol) injection 30 mg (COMPLETED) 30 mg, IntraVENous, Every 6 hours, First dose on Wed01/26/25 at 1600, For 2 doses, Phase II/On Unit, Discontinue when able to take PO ibuprofen. 1612 (Given - Provider: Jenny Torres RN)2156 (Given - Provider: Veda Hickman RN) losartan (Cozaar) tablet 25 mg 25 mg, Oral, Daily, First dose on Wed01/27/25 at 0800 0800 (Not Given - Provider: Gladis Rubalcava RN - Reason: Other - Comment: Hold per , 97/51, HR 59) metoprolol tartrate (Lopressor) tablet 25 mg 25 mg, Oral, 2 times daily, First dose on Wed01/26/25 at 2100 2100 (Not Given - Provider: Veda Hickman RN - Reason: Other - Comment: BP 104/47, HR 58) 0900 (Not Given - Provider: Gladis Rubalcava RN - Reason: Other - Comment: Hold per , 97/51, HR 59) metroNIDAZOLE (Flagyl) IVPB 500 mg (COMPLETED)(Linked Group 1) 500 mg, IntraVENous, at 100 mL/hr, Administer over 60 Minutes, Once, On Wed01/26/25 at 0645, For 1 dose, Preprocedure, Administer within 1 hour prior to incision., Suspected Indication (Select all that apply): Surgical Prophylaxis 0840 (Given - Provider: Skip Whittaker CRNA)1020 (Anesthesia Volume Adjustment - Provider: Skip Whittaker CRNA) sertraline (Zoloft) tablet 50 mg 50 mg, Oral, Daily, First dose on Wed01/26/25 at 1030 1030 (Canceled Entry - Provider: Automatic Discharge Provider - Comment: Automatically canceled at discontinue of medication order) 0800 (Not Given - Provider: Gladis Rubalcava, RAMONE - Reason: Patient/family refused - Comment: takes at night) sodium chloride 0.9% (NS) flush 10 mL 10 mL, IntraVENous, Every 12 hours scheduled (2 times per day), First dose on Wed01/26/25 at 2100, Phase II/On Unit 2157 (Given - Provider: Veda Hickman, RAMONE) 0914 (Given - Provider: Gladis Rubalcava, RAMONE) Continuous Medication Order 01/25/2025 01/26/2025 01/27/2025 lactated Ringer's (LR) infusion (CANCELED) 50 mL/hr, IntraVENous, Continuous, Starting on Wed01/26/25 at 0645, Preprocedure, Upon admission to sameday - please start iv if patient does not have iv access. Use 500ml NS for patients on dialysis. 0644 (New Bag - Provider: Segun Kimble RN)0823 (Rate/Dose Change - Provider: Skip Whittaker CRNA)0958 (New Bag - Provider: Skip Whittaker CRNA) 0551 (Stopped - Provider: Veda Hickman RN) lactated Ringer's infusion () 100 mL/hr, IntraVENous, Continuous, Starting on Wed01/26/25 at 1030, For 6 hours 1209 (Rate/Dose Change - Provider: Jenny Torres RN)1954 (Stopped - Provider: Veda Hickman RN) PRN Medication Order 01/25/2025 01/26/2025 01/27/2025 absorbable hemostat (SURGICEL) 3G powder (CANCELED) As needed, Starting on Wed01/26/25 at 0941, Intraprocedure 0941 (Given - Provider: Darvin Grady MD) HYDROmorphone (Dilaudid) injection 0.5 mg (CANCELED) 0.5 mg, IntraVENous, Every 5 min PRN, severe pain (7-10), Starting on Wed01/26/25 at 1020, For 4 doses, Recovery (only), Phase I and Phase II- Initial therapy for severe pain (7-10). Restricted to a 90 minute time frame starting when the patient can verbally state their pain score. If after 2 doses the pain score does not decrease by more than one point, then call the provider. If oral meds are utilized, do not return to initial therapy medications. 1044 (Given - Provider: Roxy Jimenez RN) naloxone (Narcan) injection 0.4 mg 0.4 mg, IntraVENous, Every 5 min PRN, opioid reversal, respiratory depression, Starting on Wed01/26/25 at 1207, +++ For RR <10, pinpoint pupils, over sedation for opioid reversal - MUST notify coal conveyor operator provider immediately after first dose, may give IM or SQ if no IV access +++ ondansetron (Zofran) injection 4 mg(Linked Group 3) 4 mg, IntraVENous, Every 6 hours PRN, nausea, vomiting, Starting on Wed01/26/25 at 1154, Phase II/On Unit, 1st Line. Give IV if patient is unable to take orally. If inadequate response within 60 minutes, proceed to next-line agent or contact provider if no further options ordered. ondansetron ODT (Zofran-ODT) disintegrating tablet 4 mg(Linked Group 3) 4 mg, Oral, Every 8 hours PRN, nausea, vomiting, Starting on Wed01/26/25 at 1154, Phase II/On Unit, 1st Line. If inadequate response within 60 minutes, proceed to next-line agent or contact provider if no further options ordered. Patient should allow tablet to dissolve on tongue. Do not remove from blister pack until just before administering. oxyCODONE (Roxicodone) immediate release tablet 10 mg(Linked Group 4) 10 mg, Oral, Every 4 hours PRN, severe pain (7-10), Starting on Wed01/26/25 at 1154, Phase II/On Unit oxyCODONE (Roxicodone) immediate release tablet 5 mg(Linked Group 4) 5 mg, Oral, Every 4 hours PRN, moderate pain (4-6), Starting on Wed01/26/25 at 1154, Phase II/On Unit polyethylene glycol (PEG) 3350 (Miralax) packet 17 g 17 g, Oral, Daily PRN, constipation, Starting on Wed01/26/25 at 1154, Phase II/On Unit, 1st line for treatment of constipation - give scheduled if no bowel movement in past 24 hours. simethicone (Mylicon) chewable tablet 80 mg 80 mg, Oral, Every 6 hours PRN, flatulence, Starting on Wed01/26/25 at 1024 sodium chloride 0.9 % infusion 5-250 mL/hr, IntraVENous, PRN, if patient receiving piggyback infusions and maintenance fluids are not ordered OR KVO fluids to protect IV site / prevent frequent line interruptions/ long duration, Starting on Wed01/26/25 at 1154, Phase II/On Unit, For piggyback infusion, administer at same rate as piggyback for a total of 25 mL. Enter 25 mL into dose field and piggyback rate into rate field of order. If piggyback is infusing at a rate less than 100 mL/hr, enter 25 mL into dose field and 100 mL/hr into rate field of order. For KVO fluids, enter rate of 20 mL/hr or less into rate field of order. sodium chloride 0.9 % irrigation solution (CANCELED) As needed, Starting on Wed01/26/25 at 0837, Intraprocedure 0837 (Given - Provider: Darvin Grady MD)0920 (Given - Provider: Darvin Grady MD) sodium chloride 0.9% (NS) flush 10 mL 10 mL, IntraVENous, PRN, line care, Starting on Wed01/26/25 at 1154, Phase II/On Unit, After every IV line use Linked Groups Order Group 1: metroNIDAZOLE (Flagyl) IVPB 500 mg (COMPLETED)Jump to med 500 mg, IntraVENous, at 100 mL/hr, Administer over 60 Minutes, Once, On Wed01/26/25 at 0645, For 1 dose, Preprocedure, Administer within 1 hour prior to incision., Suspected Indication (Select all that apply): Surgical Prophylaxis And ceFAZolin in dextrose 4% (Ancef) IVPB 2,000 mg (COMPLETED)Jump to med 2,000 mg, IntraVENous, Administer over 30 Minutes, Once, On Wed01/26/25 at 0645, For 1 dose, Preprocedure, Administer within 1 hour prior to incision. premix bag, Suspected Indication (Select all that apply): Surgical Prophylaxis Group 2: famotidine (Pepcid) tablet 20 mg (COMPLETED)Jump to med 20 mg, Oral, Once, On Wed01/26/25 at 0645, For 1 dose, Preprocedure, IV or ORAL Or famotidine (Pepcid) 20 mg in sodium chloride (PF) 0.9 % 10 mL injection (COMPLETED) 20 mg, IntraVENous, Administer over 2 Minutes, Once, On Wed01/26/25 at 0645, For 1 dose, Preprocedure, IV or ORAL Group 3: ondansetron ODT (Zofran-ODT) disintegrating tablet 4 mgJump to med 4 mg, Oral, Every 8 hours PRN, nausea, vomiting, Starting on Wed01/26/25 at 1154, Phase II/On Unit, 1st Line. If inadequate response within 60 minutes, proceed to next-line agent or contact provider if no further options ordered. Patient should allow tablet to dissolve on tongue. Do not remove from blister pack until just before administering. Or ondansetron (Zofran) injection 4 mgJump to med 4 mg, IntraVENous, Every 6 hours PRN, nausea, vomiting, Starting on Wed01/26/25 at 1154, Phase II/On Unit, 1st Line. Give IV if patient is unable to take orally. If inadequate response within 60 minutes, proceed to next-line agent or contact provider if no further options ordered. Group 4: oxyCODONE (Roxicodone) immediate release tablet 5 mgJump to med 5 mg, Oral, Every 4 hours PRN, moderate pain (4-6), Starting on Wed01/26/25 at 1154, Phase II/On Unit Or oxyCODONE (Roxicodone) immediate release tablet 10 mgJump to med 10 mg, Oral, Every 4 hours PRN, severe pain (7-10), Starting on Wed01/26/25 at 1154, Phase II/On Unit INFORMATION SOURCE (unrecogn ized section and content) DATE CREATED AUTHOR 02/16/2025 [facility] DATE CREATED AUTHOR AUTHOR'S ORGANIZ ATION 02/17/2025 [facility] DATE CREATED AUTHOR AUTHOR'S ORGANIZ ATION 04/15/2025 [facility] DATE CREATED AUTHOR AUTHOR'S ORGANIZ ATION 04/28/2025 [facility] FOR RECORDS PERTAINING TO PATIENTS WHO ARE OR HAVE BEEN ENROLLED IN A CHEMICAL DEPENDENCY/SUBSTANCEABUSE PROGRAM, SOME INFORMATION MAY BE OMITTED. This clinical summary was aggregated from multiple sources. Caution should be exercised in using it in the provision of clinical care. This summary normalizes information from multiple sources, and as a consequence, information in this document may materially change the coding, format and clinical context of patient data. In addition, data may be omitted in some cases. CLINICAL DECISIONS SHOULD BE BASED ON THE PRIMARY CLINICAL RECORDS. [facility]. provides no warranty or guarantee of the accuracy or completeness of information in this document.
[2025-04-28 21:54] LABS: Magnesium 1.8 mg/dL (1.5-2.2); Phosphorus 2.1 mg/dL (2.7-4.5)
[2025-04-28 22:00] VITALS: BP 127/65; PULSE 88; RESP 16; TEMP 37.9; O2SAT 99
[2025-04-28] MEDS: Acetaminophen 500 MG Tablet 1000 MG PO (22:09)
[2025-04-28 22:27] LABS: Color, Urine Amber (Yellow); Glucose, Dipstick Normal (Normal); Ketone-Dipstick Negative (Negative); Leukocyte Esterase-Dipstick 100 /ul (Negative); Nitrite-Dipstick Negative (Negative); Occult Blood-Urine 250 /ul (Negative); Protein-Dipstick 100 mg/dl (Negative); Urine Bilirubin Dipstick Negative (Negative); Urine Clarity Sl. Cloudy (Clear); Urine Urobilinogen 1 mg/dl (Normal)
[2025-04-28 22:35] LABS: Bacteria 2+ /hpf (None Seen); Mucous, Urine 3+ /hpf (<or=2+); Red Blood Cells-Urine > 100 SEEN /hpf (0-5); Squamous Epithelial Cells - UA 5-10 SEEN /hpf (5-10); White Blood Cells >100 SEEN /hpf (0-5)
[2025-04-28] MEDS: Ceftriaxone 1 GM/50 ML BAG IV (22:52)
[2025-04-28 22:59] VITALS: BP 111/81; PULSE 88; RESP 18; TEMP 37.6; O2SAT 99
[2025-04-28 23:42] VITALS: BP 115/57; PULSE 88; RESP 15; TEMP 37.6; O2SAT 99
== END 2025-04-28 23:43 | disposition home or self-care (01) ==
PROVIDERS: Emergency Provider Emergency Medicine; PCP Family Medicine; Visit Provider Emergency Medicine
DX: N39.0 Urinary tract infection, site not specified (principal); C49.5 Malignant neoplasm of connective and soft tissue of pelvis; D84.9 Immunodeficiency, unspecified; I25.10 Atherosclerotic heart disease of native coronary artery without angina pectoris; I25.2 Old myocardial infarction; I10 Essential (primary) hypertension; F17.210 Nicotine dependence, cigarettes, uncomplicated; Z95.5 Presence of coronary angioplasty implant and graft; Z79.82 Long term (current) use of aspirin; Z79.899 Other long term (current) drug therapy
CPT/HCPCS: 36591; 71046; 80053; 81001; 83605; 83735; 84100; 85025; 85610; 85730; 87040; 87086; 87088; 96365; 99284; A4216

== ENCOUNTER 2025-05-04 17:58 | Emergency (ER) | payer BC, SELFPAY ==
[2025-05-04 17:59] VITALS: BP 121/66; PULSE 97; RESP 16; TEMP 37.7; O2SAT 92; BMI 33.3
[2025-05-04 19:04] VITALS: BP 129/63; PULSE 82; RESP 22; TEMP 37.9; O2SAT 95
--- NOTE | 2025-05-04 19:08 | EX.ED.DYSGE1 ---
HPI <ISAI Payan - Last Filed: 05/04/25 22:15> History of Present Illness Chief Complaint: Fever Narrative Narrative: 54-year-old female presents with fever. 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 In January 2025 she had exploratory laparotomy with left oophorectomy, removal of pelvic mass, and omentectomy (she had a hysterectomy prior to this cancer diagnosis). She started her first round of chemo on April 19 and April 26 and is under the care of Dr. Persaud and Gladis Loving. She had blood work drawn yesterday showing a WBC count of 0.5. About 1 hour prior to arrival she developed a fever of 100.8 ?F with an oral thermometer. She did not take any antipyretics and presents for evaluation. She denies chest pain, shortness of breath, cough. She has no nausea vomiting or abdominal pain. She states she had 1 episode of loose stools last night after eating eggs but none since. No melena hematochezia. No urinary symptoms. [facility] <ISAI Payan - Last Filed: 05/04/25 22:15> [facility] Medical History (Updated 05/04/25 @ 22:12 by ISAI Payan) Severe neutropenia Anemia Dark urine Oral candidiasis Encounter for education Cancer Back pain Shortness of breath on exertion Leg cramps History of stress test Primary leiomyosarcoma of pelvis Anemia due to chronic blood loss Menorrhagia Wears dentures High cholesterol Loss of consciousness Gastric reflux Smoker Cardiology follow-up encounter History of echocardiogram Cardiac murmur History of non-ST elevation myocardial infarction (NSTEMI) (06/2014) Essential (primary) hypertension Atherosclerosis of coronary artery without angina pectoris Kidney stones Home Medications ?Medication ?Instructions ?Recorded ?Last Taken ?Type aspirin 81 mg chewable tablet 81 mg PO DAILY@0800 hx of mi 06/09/19 03/28/25 History atorvastatin 80 mg tablet 80 mg PO QHS cholesterol #90 tabs 11/29/23 Unknown Rx famotidine 20 mg tablet (Pepcid) 20 mg PO BID 11/29/23 Unknown History sertraline 50 mg tablet (Zoloft) 50 mg PO QHS 11/29/23 Unknown History lidocaine-prilocaine 2.5 %-2.5 % 1 applic topical ONCE PRN port 04/04/25 Unknown Rx topical cream access 30 days #30 grams ondansetron 8 mg disintegrating 8 mg PO Q8H PRN nausea and 04/04/25 Unknown Rx tablet vomiting #30 tabs prochlorperazine maleate 10 mg 10 mg PO Q6H PRN nausea and 04/04/25 Unknown Rx tablet vomiting #30 tabs dexamethasone 4 mg tablet 8 mg (2 x 4 mg) PO .COMPLEX #72 04/05/25 Unknown Rx tabs cefpodoxime 200 mg tablet 200 mg PO BID #20 tabs 04/28/25 Unknown Rx nystatin 100,000 unit/mL oral 5 ml PO Q6H #473 mL 04/30/25 Unknown Rx suspension Allergy/AdvReac Type Severity Reaction Status Date / Time No Known Allergies Allergy Verified 05/04/25 18:04 Family History Father Kidney disease Aunt Cancer paternal Other Heart disease Surgical History H/O pelvic mass (~01/26/25) History of cardiac catheterization Hx of oral surgery Hx laparoscopic cholecystectomy Hx of left cataract extraction History of hysterectomy Cataract extraction status of right eye Hx of tubal ligation History of coronary artery stent placement (03/31/21) Social History household members: spouse housing: house Smoking Status: Current every day smoker tobacco type: cigarettes Tobacco: How many years used: 39 quit status: considering quitting alcohol intake: never substance use type: does not use caffeine: Yes Type: coffee Number of servings: 1 and tea Number of servings: 2 ROS <ISAI Payan - Last Filed: 05/04/25 22:15> ROS ED ROS Narrative Constitutional: Positive for fever. No chills, malaise. Respiratory: Negative for shortness of breath, cough. GI: Negative for abdominal pain, nausea, vomiting, diarrhea. : Negative for dysuria, hematuria or frequency. EXAM <ISAI Payan - Last Filed: 05/04/25 22:15> Physical Exam Narrative Exam Narrative: CONST: Patient sitting in no acute distress. EYES: Normal inspection. NECK: Normal inspection. RESP: No respiratory distress, CTAB. CVS: Regular rate and rhythm, no murmur, no gallop. ABD: Soft and nontender, no guarding or rebound, nondistended. SKIN: Color normal, no rash, warm, dry, intact. EXTREMITIES: Normal appearance, no pedal edema. NEURO: Alert and answering questions appropriately. PSYCH: Normal affect. Const Vital Signs: 05/04/25 17:59 05/04/25 18:13 05/04/25 19:04 Temperature 99.9 F H 100.2 F H Temperature Source Oral Oral Pulse Rate 97 82 Respiratory Rate 16 22 H Respiratory Effort Normal Non-Labored Blood Pressure 121/66 H 129/63 H Blood Pressure Mean 84 85 Pulse Ox 92 95 Oxygen Delivery Method Room Air Room Air 05/04/25 20:00 05/04/25 21:00 05/04/25 22:14 Temperature 100.2 F H 99.2 F H 99.2 F H Temperature Source Oral Oral Pulse Rate 83 91 91 Respiratory Rate 20 H 17 17 Respiratory Effort Blood Pressure 110/64 104/71 104/71 Blood Pressure Mean 79 82 82 Pulse Ox 95 96 96 Oxygen Delivery Method Room Air Room Air <Dr. Girish Mcgarry DO - Last Filed: 05/04/25 22:16> Physical Exam Const Vital Signs: 05/04/25 17:59 05/04/25 18:13 05/04/25 19:04 Temperature 99.9 F H 100.2 F H Temperature Source Oral Oral Pulse Rate 97 82 Respiratory Rate 16 22 H Respiratory Effort Normal Non-Labored Blood Pressure 121/66 H 129/63 H Blood Pressure Mean 84 85 Pulse Ox 92 95 Oxygen Delivery Method Room Air Room Air 05/04/25 20:00 05/04/25 21:00 05/04/25 22:14 Temperature 100.2 F H 99.2 F H 99.2 F H Temperature Source Oral Oral Pulse Rate 83 91 91 Respiratory Rate 20 H 17 17 Respiratory Effort Blood Pressure 110/64 104/71 104/71 Blood Pressure Mean 79 82 82 Pulse Ox 95 96 96 Oxygen Delivery Method Room Air Room Air MDM <ISAI Payan - Last Filed: 05/04/25 22:15> [facility] MDM Narrative Medical decision making narrative: 54-year-old female with past medical history of hysterectomy, bilateral salpingectomy and right oophorectomy. She had a CT showing a large left pelvic mass in December 2024. January 2025 she had ex lap with left oophorectomy, removal of the pelvic mass, and omentectomy. Diagnosis is leiomyosarcoma. Patient was seen here on 04/28/25 for a fever and was not neutropenic at that time. She was treated for a UTI with ceftriaxone and prescribed 10 days of antibiotics. Urine culture returned as mixed gram-positive organisms. She started chemotherapy on April 19 and April 27 and presents with a fever of 100.8 ?F at home that started an hour prior to arrival. She looks very well. She had not taken antipyretics and temperature here is 100.2 ?F. The rest of her vitals are normal. WBC is 0.8, hemoglobin 10.7, platelets 35. This is stable from yesterday's outpatient labs. Electrolytes and renal function are normal. There is mild elevation of LFTs. INR is 1.2. Proalcitonin and lactic are normal. Urinalysis looks similar to previous with positive nitrates, over 100 RBCs, 5-10 WBCs and 2+ bacteria. Urine and blood cultures were sent. I ordered Tylenol and empiric cefepime but patient is adamant she does not want antibiotics until I speak with her oncologist so this is why it there is a delay in starting them. I paged Dr. Moore and oncology and there was a significant delay in hearing back. Once I spoke with him he recommended she be admitted for IV antibiotics since a week ago she had a fever and was not neutropenic and has been taking oral antibiotics since then and now is again febrile and now neutropenic. I discussed this with the patient and she is adamant that she wants to go home because she feels well. She is leaving AGAINST MEDICAL ADVICE. I thoroughly discussed the risks including that she has a very suppressed immune system and could have an underlying infection, developed sepsis, and endorgan damage or . Lab Data Attestation: I reviewed the patient's lab results. Labs: Laboratory Results - last 24 hr 05/04/25 05/04/25 05/04/25 19:02 19:32 20:20 WBC 0.8 L* RBC 3.75 L Hgb 10.7 L Hct 30.4 L MCV 81.1 MCH 28.5 MCHC 35.2 RDW Std Deviation 36.2 RDW Coeff of Estella 12.4 Plt Count 35 L* MPV 10.9 Immature Gran % (Auto) 4.800 H Neut % (Auto) 5.9 L Lymph % (Auto) 71.4 H [place] % (Auto) 11.9 H Eos % (Auto) 3.6 Baso % (Auto) 2.4 H Absolute Neuts (auto) 0.1 L Absolute Lymphs (auto) 0.60 L Nucleated RBC % 4.8 Differential Comment SCANNED Diff Path Review TITLE I DIRECTOR Platelet Estimate MKD DEC PT Cancelled 15.0 H INR Cancelled 1.2 Sodium 133 Potassium 3.7 Chloride 101 Carbon Dioxide 21.2 Anion Gap 11 BUN 8 Creatinine 0.59 L Estim Creat Clear Calc 130.14 Est GFR (MDRD) Non-Af 107 BUN/Creatinine Ratio 13.7 Glucose 115 H Lactic Acid < 1.0 Calcium 8.7 Total Bilirubin 0.62 AST 43 H ALT 49 H Alkaline Phosphatase 90 Total Protein 6.7 Albumin 3.4 L Globulin 3.4 Albumin/Globulin Ratio 1.0 Procalcitonin 0.11 Urine Color Mirna Urine Clarity Cloudy Urine pH 6.0 Ur Specific [place] 1.015 Urine Protein 100 H Urine Glucose (UA) Normal Urine Ketones Negative Urine Occult Blood 250 H Urine Nitrite Positive H Urine Bilirubin 1 H Urine Urobilinogen 4 H Ur Leukocyte Esterase 25 H Urine RBC > 100 SEEN Urine WBC 5-10 SEEN Ur Squamous Epith Cells 0-5 SEEN Ur Transition Epith Cell 0-5 SEEN Urine Bacteria 2+ Urine Mucus 1+ Radiography Diagnostic Testing: Clinical Impression(s) from Imaging Studies Chest X-Ray 05/04/25 19:45 IMPRESSION: No acute cardiopulmonary process. Reading Location: [id number] <Dr. Girish Mcgarry, DO - Last Filed: 05/04/25 22:16> MDM History & Record Review Discussion w/independent historian: Patient Additional record(s) reviewed:: Prior outpatient record, Prior ED visit and Prior labs Lab Data Labs: Laboratory Results - last 24 hr 05/04/25 05/04/25 05/04/25 19:02 19:32 20:20 WBC 0.8 L* RBC 3.75 L Hgb 10.7 L Hct 30.4 L MCV 81.1 MCH 28.5 MCHC 35.2 RDW Std Deviation 36.2 RDW Coeff of [place] 12.4 Plt Count 35 L* MPV 10.9 Immature Gran % (Auto) 4.800 H Neut % (Auto) 5.9 L Lymph % (Auto) 71.4 H [place] % (Auto) 11.9 H Eos % (Auto) 3.6 Baso % (Auto) 2.4 H Absolute Neuts (auto) 0.1 L Absolute Lymphs (auto) 0.60 L Nucleated RBC % 4.8 Differential Comment SCANNED Diff Path Review TITLE I DIRECTOR Platelet Estimate MKD DEC PT Cancelled 15.0 H INR Cancelled 1.2 Sodium 133 Potassium 3.7 Chloride 101 Carbon Dioxide 21.2 Anion Gap 11 BUN 8 Creatinine 0.59 L Estim Creat Clear Calc 130.14 Est GFR (MDRD) Non-Af 107 BUN/Creatinine Ratio 13.7 Glucose 115 H Lactic Acid < 1.0 Calcium 8.7 Total Bilirubin 0.62 AST 43 H ALT 49 H Alkaline Phosphatase 90 Total Protein 6.7 Albumin 3.4 L Globulin 3.4 Albumin/Globulin Ratio 1.0 Procalcitonin 0.11 Urine Color Mirna Urine Clarity Cloudy Urine pH 6.0 Ur Specific [place] 1.015 Urine Protein 100 H Urine Glucose (UA) Normal Urine Ketones Negative Urine Occult Blood 250 H Urine Nitrite Positive H Urine Bilirubin 1 H Urine Urobilinogen 4 H Ur Leukocyte Esterase 25 H Urine RBC > 100 SEEN Urine WBC 5-10 SEEN Ur Squamous Epith Cells 0-5 SEEN Ur Transition Epith Cell 0-5 SEEN Urine Bacteria 2+ Urine Mucus 1+ Radiography Diagnostic Testing: Clinical Impression(s) from Imaging Studies Chest X-Ray 05/04/25 19:45 IMPRESSION: No acute cardiopulmonary process. Reading Location: [id number] Treatment and Re-Evaluation :: I have personally performed a face to face assessment of the patient and have reviewed the DELROY Note. I performed a substantive portion of the visit including all aspects of the following. 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 Follows locally with [facility] oncology. She was seen recently for fever following chemotherapy but was not neutropenic. Today she is neutropenic and is reporting fever at home. She does not have any localizing symptoms of infection. Exam is patient is well-appearing no acute distress. She is not significantly tachycardic. No hypotension. Port site is clean dry and intact. ANO x 3. Medical Decison Making patient is noted to be neutropenic. Hemoglobin 10.7 platelet count is 35 which is chronic for her. INR 1.2. Glucose 115 lactic acid is less than 1. Urinalysis is nitrate positive greater than 100 red blood cells 5-10 white cells 2+ bacteria. Patient pancultured. She does not wish antibiotics until we speak to oncology. We have made multiple attempts to reach oncology and were eventually able to speak with them. The recommendation from us and from oncology is admission to hospital. Patient does not feel that she needs antibiotics and states that her oncologist did not want her to have antibiotics the last time she was in the emergency department. Despite her being told yesterday continue her antibiotics that she was prescribed from the ED. Patient wishes to sign out AMA and not be admitted to the hospital. Patient has the capacity to make this decision. Discharge Plan Triage Chief Complaint: Fever ED Midlevel Provider: Radha Norman ED Provider: Girish Mcgarry Dx/Rx/DC Orders Clinical Impression: Neutropenic fever, UTI (urinary tract infection), Pancytopenia, Leiomyosarcoma Prescriptions: No Action sertraline [Zoloft] 50 mg tablet 50 mg PO QHS famotidine [Pepcid] 20 mg tablet 20 mg PO BID atorvastatin 80 mg tablet 80 mg PO QHS Qty: 90 3RF lidocaine-prilocaine 2.5-2.5 % cream 1 applic topical ONCE PRN (Reason: port access) 30 Days Qty: 30 2RF ondansetron 8 mg tablet,disintegrating 8 mg PO Q8H PRN (Reason: nausea and vomiting) Qty: 30 1RF prochlorperazine maleate 10 mg tablet 10 mg PO Q6H PRN (Reason: nausea and vomiting) Qty: 30 2RF dexamethasone 4 mg tablet 8 mg PO .COMPLEX Qty: 72 0RF Rx Instructions: 8 mg orally; twice daily ONLY the day before, the day of and the day after chemotherapy aspirin 81 MG tablet,chewable 81 mg PO DAILY@0800 cefpodoxime 200 mg tablet 200 mg PO BID Qty: 20 0RF Rx Instructions: must administer with a meal/food nystatin 100,000 unit/mL suspension 5 ml PO Q6H Qty: 473 1RF Rx Instructions: swish and swallow Primary Care Provider: David Tse Referrals: David Tse MD [Primary Care Provider] - Activity Restrictions/Additional Instructions: The ER physician and oncologist are recommending you be admitted for neutropenic fever for IV antibiotics. You are leaving AGAINST MEDICAL ADVICE. Risks are that you could get significantly more ill and become septic, develop damage to your organs, permanent disability, or . Please follow-up closely with your oncologist. Return anytime for admission or worsening symptoms. Print Language: [place] Disposition Disposition: Home, Self Care
[2025-05-04 19:13] LABS: Color, Urine Amber (Yellow); Glucose, Dipstick Normal (Normal); Ketone-Dipstick Negative (Negative); Leukocyte Esterase-Dipstick 25 /ul (Negative); Nitrite-Dipstick Positive (Negative); Occult Blood-Urine 250 /ul (Negative); Protein-Dipstick 100 mg/dl (Negative); Specific Gravity, Urine 1.015 (1.002-1.030); Urine Clarity Cloudy (Clear); Urine Urobilinogen 4 mg/dl (Normal)
[2025-05-04 19:36] LABS: Urine Bilirubin Dipstick 1 mg/dL (Negative)
[2025-05-04 19:38] LABS: Red Blood Cells-Urine > 100 SEEN /hpf (0-5)
[2025-05-04 19:41] LABS: Bacteria 2+ /hpf (None Seen); Mucous, Urine 1+ /hpf (<or=2+); Squamous Epithelial Cells - UA 0-5 SEEN /hpf (5-10); Transitional Epithelial - Ur 0-5 SEEN /hpf (0-5); White Blood Cells 5-10 SEEN /hpf (0-5)
[2025-05-04] MEDS: Acetaminophen 500 MG Tablet 1000 MG PO (19:43)
--- OUTSIDE RECORDS SUMMARY | 2025-05-04 19:44 | XMS RPT_ITS | CCD ---
Author Organization [facility] Care Team Providers Care Chain Testing Machine Operator Name Role Phone Unavailable Primary Care Provider Unavailabl e Care Physician, No Primary Primary Care Provider Unavailable Dr. Joni Michel Attending Provider David Fink MD Primary Care Provider David Fink MD Primary Care Provider Care Physician, No Primary Referring Provider Un available Dr. Joni Michel Attending Provider Dr. David Fink Primary Care Provider David Fink MD Primary Care Provider Unavailable Primary Care Provider Unavailabl kev Morin TOBACCO SIEVE OPERATOR.UMBRELLA SUPERVISOR, Hilda Unavailable Elodia TOBACCO SIEVE OPERATOR.UMBRELLA SUPERVISOR, [place] A Unavailable [phone] Darvin Grady MD Unavailable David Fink MD Primary Care Provider [phone] Dr. David Fink MD Primary Care Provider Dr. Isaiah Villanueva DO Attending Provider Dr. Isaiah Villanueva DO Emergency Provider Dr. Imani Persaud MD Attending Provider Danielle MORTONCNabil Referring Provider Dr. Imani Persaud MD Referring Provider Keon TOBACCO SIEVE OPERATOR - UMBRELLA SUPERVISOR, Ashok D Unavailable JUANA LINTON Referring Unavailable DAVID FINK Primary Care Unavailable DAVID FINK Primary Care Unavailable DAVID FINK Primary Care Unavailable DAVID FINK Primary Care Unavailable ALEKS, DAVID J Primary Care Unavailable SUSY SMITH Referring Unavailable ALEKS, DAVID J Primary Care Unavailable ISAÍAS RIBEIRO Referring Unavailable ALEKS, DAVID J Primary Care Unavailable DARVIN GRADY Attending Unavailable ALEKS, DAVID Primary Care Unavailable ASHOK HERBERT Attending Unavailable ALEKS, DAVID Primary Care Unavailable DARVIN GRADY Attending Unavailable ISCKARUS, MANSOUR S Referring Unavailable ALEKS, DAVID Primary Care Unavailable DARVIN GRADY Admitting Unavailable DARVIN GRADY Attending Unavailable ALEKS, DAVID Primary Care Unavailable Aleks , Dr. Hernandez Referring Provider Jose Maunel VALDEZ, Dr. Venegas Attending Provider Jose Manuel VALDEZ, Dr. Venegas Referring Provider [phone] Jose Manuel VALDEZ, Dr. Venegas Other Provider Aleks VALDEZ, David Primary Care Provider Jennyus LIAM [facility], Mansour S Unavailable Shannan Kearney RN Unavailable Unavailable Shayna RN DIGESTIVE-C Delmis Attending Provider CHRISTOPHER CUNNINGHAM Attending Unavailable ALEKS, DAVID Primary Care Unavailable ISCKAR, MANSOUR S Referring Unavailable Dr. Imani Persaud MD Referring Provider Cody MCCRAY-Keron Naylor Attending Provider Dr. Girish Mcgarry DO Emergency Provider Shayna RN DIGESTIVE, Delmis Attending Unavailable Aleks, David Primary Care Unavailable Theo Richard Referring Unavailable Theo Richard Attending Unavailable Aleks, David Primary Care Unavailable Isckarus, Mansour Attending Unavailable Isckarus, Mansour Referring Unavailable Aleks, David Primary Care Unavailable Shayna RN DIGESTIVE, Delmis Attending Unavailable [place], David Primary Care Unavailable Aleks, David Referring Unavailable Keron Ross NP Attending Unavailable [place], David Primary Care Unavailable Aleks, David Referring Unavailable [place], David Referring Unavailable Isckarus, Mansira Attending Unavailable [place], David Primary Care Unavailable [place], David Referring Unavailable Isckarus, Mansour Attending Unavailable Aleks, David Primary Care Unavailable Isckarus, Imani Attending Unavailable Nabil Santos Referring Unavailable Aleks, [facility] Primary Care Unavailable Isckarus, Jenniferour Attending Unavailable [place], [facility] Primary Care Unavailable [place], David Referring Unavailable Calabretta, Theo Attending Unavailable [place], [facility] Primary Care Unavailable [place], David Referring Unavailable Isckarus, Jenniferour Attending Unavailable [place], [facility] Primary Care Unavailable [place], David Referring Unavailable Calabretta, Theo Referring Unavailable [place], Theo Attending Unavailable [place], Theo Consulting Unavailable [place], [facility] Primary Care Unavailable Isckarus, Mansour Referring Unavailable Isckarus, Mansour Attending Unavailable [place], [facility] Primary Care Unavailable Isckarus, Mansour Referring Unavailable Isckarus, Mansour Attending Unavailable [place], [facility] Primary Care Unavailable Isckarus, Mansour Attending Unavailable Isckarus, Mansour Referring Unavailable [place], [facility] Primary Care Unavailable [place], [facility] Primary Care Unavailable Girish Mcgarry Attending Unavailable Isaiah Villanueva Attending Unavailable [place], [facility] Primary Care Unavailable Medications Current Medications Medication [...] not administer if patient has taken tylenol [id number] 200 actuat albuterol 0.09 mg/actuat metered dose [...] once daily. Take 1 tablet by joe th once daily. cefpodoxime 200 mg oral tablet (2 sources) Cephalosporin Antibacterial Start: take 1 tablet by mouth twice daily at mealtime Cefpodoxime 200 mg tablet Active 200 mg PO TWICE A DAY April 28, 2025 12:00am must administer with a meal/food cephalexin 500 mg oral capsule (3 sources) Cephalosporin Antibacterial Start: End: take 1 capsule by mouth twice daily cephALEXin (KEFLEX) 500 mg capsule Take 1 capsule by mouth two times a day for 5 days. 10 capsule 12/24/2024 12/29/2024 Active dexamethasone 4 mg oral tablet (5 sources) Corticosteroid Start: take 2 tablets by mouth twice daily Dexamethasone 4 mg tablet Active 8 mg PO .COMPLEX 72 April 05, 2025 12:00am 8 mg orally; twice daily ONLY the day before, the day of and the day after chemotherapy docusate sodium 100 mg oral capsule (7 sources) Start: End: take 1 capsule by mouth twice daily in the evening docusate sodium (Colace) 100 MG capsule Take 1 capsule (100 mg) by mouth 2 times daily. 60 capsule 01/26/2025 5:21 PM EDT 01/26/2025 02/25/2025 Active doxycycline hyclate 100 mg oral tablet (4 sources) Tetracycline-class Drug Start: End: take 1 tablet by mouth twice daily [...] Comment on above: Take 1 capsule by [facility] twice daily for 7 days. famotidine 20 mg oral tablet (20 sources) Histamine-2 Receptor Antagonist Start: 01-27-20 End: 01-28-20 take 1 tablet by mouth twice daily Famotidine (Pepcid) 20 mg tablet Active 20 mg PO TWICE A DAY November 29, 2023 1:00am Comment on above: Take 1 tablet by joe twice daily. fluconazole 150 mg oral tablet [...] 0 03/23/2024 03/23/2024 Active Lidocaine / Prilocaine (6 sources) Antiarrhythmic, Amide Local Anesthetic Start: 04-04-2025 Lidocaine-Prilocaine 2.5-2.5 % cream Active 1 NMA TOPICAL ONCE as needed for port access April 04, 2025 12:00am Multivitamins chew (20 sources) Multivitamins ch ew Take by mouth. With iron Active Multivitamins ch ew Take by mouth. With iron 0 Active Comment on above: Take by mouth. With iron nystatin [id number] unt/ml topical cream (5 sources) Polyene Antifungal Start: 02-14-2025 End: 02-14-2026 nystatin [id number] UNIT/GM Cream Apply topically Twice daily. 02/14/2025 02/14/2026 Active Start: 02-14-2025 End: 02-14-2026 nystatin (Mycostatin) cream Apply topically 2 times daily. 30 g 3 02/14/2025 02/14/2026 Active Nystatin 100,000 unit/mL suspension (1 source) Start: 04-30-2025 take 1 mL by mouth every six hours Nystatin 100,000 unit/mL suspension Active 5 mL PO EVERY 6 HOURS April 30, 2025 12:00am swish and swallow ondansetron 8 mg disintegrating oral tablet (17 sources) Serotonin-3 Receptor Antagonist Start: 04-04-2025 take 1 tablet by mouth every eight hours as needed for nausea and vomiting Ondansetron 8 mg tablet,disintegra ting Active 8 mg PO Q8H as needed [...] 1:35pm oxyCODONE hydrochloride 5 mg oral tablet (17 sources) Opioid Agonist Start: 01-26-2025 End: 01-31-2025 [...] December 08, 2022 4:19pm polyethylene glycol 3350 126724 mg / potassium chloride 2980 mg / sodium bicarbonate 6720 mg / sodium chloride 5840 mg / sodium sulfate 64277 mg powder for oral solution (1 source) Osmotic Laxative Start: 10-13-2022 End: 10-13-2022 peg 3350-electrolytes (COLYTE) 240-22.72-6.72 -5.84 gram solution Take 4,000 mL by mouth one time only for 1 dose. 1 Each 0 10/13/2022 10/13/2022 Active Comment on above: Take 4,000 mL by joe one time only for 1 dose. predniSONE [...] with food. Take 2 tablets by mo ut once daily. prochlorperazine 10 mg oral tablet (6 sources) Phenothiazine Start: 2024 take 1 tablet [...] once a day Take 1 tablet by jeo th once daily. simethicone 80 mg chewable tablet [...] / oxyCODONE hydrochloride 5 mg oral tablet (10 sources) Opioid Agonist Start: 01-08-2025 End: 03-26-2025 Oxycodone-Acetamin ophen (Percocet) 5-325 mg tablet Discontinued 1 {tbl} PO Q8H as needed for pain 10 January 08, 2025 March 26, 2025 1:35pm aspirin 81 mg delayed release oral tablet (20 sources) Platelet Aggregation Inhibitor, Nonsteroidal Anti-inflammatory Drug Start: 01-27-2025 End: 01-27-2025 Start: 06-09-2019 take 1 tablet by joe th once daily Aspirin 81 MG tablet,chewable Active [...] on above: Take 1 tablet by joe th three times daily. ondansetron ODT (Zofran-ODT) disintegrating tablet 4 mg (2 sources) Start: End: take 1 tablet by mouth every eight hours as needed for nausea and vomiting ondansetron ODT (Zofran-ODT) disintegrating tablet 4 mg polyethylene glycol 3350 27309 mg powder for oral solution (2 sources) [...] mg / trimethoprim 160 mg oral tablet (10 sources) Dihydrofolate Reductase Inhibitor Antibacterial, Sulfonamide Antimicrobial [...] source) Counseling, unspecified; Translations: [Counseling, unspecified] Onset: 5 Episodic Benign neoplasm of uterus (7 sources) Uterine leiomyoma; Translations: [Leiomyoma of uterus, unspecified] Episodic Calculus of urinary tract (10 sources) Kidney stone; Translations: [Calculus of kidney] [...] loss (chronic)] Chronic Deficiency and other anemia (14 sources) Microcytic hypochromic anemia; Translations: [Iron deficiency anemia, unspecified] 06-10-2019 Episodic Deficiency and other anemia (1 source) Anemia; Translations: [Anemia, unspecified] 05-03-2025 Episodic Disorders of lipid metabolism (20 sources) [...] reflux disease without esophagitis] Chronic Essential hypertension (20 sources) Essential hypertension; Translations: [Essential (primary) hypertension] Onset: 5 05-21-2022 Chronic Comment on above: controlled on meds LAST ON MEDS 01/2025 Fever of unknown origin (2 sources) Fever; Translations: [Fever, unspecified] 04-28-2025 Episodic Gastritis and duodenitis (14 sources) Gastritis; Translations: [Gastritis, unspecified, without bleeding] 06-10-2019 Episodic Gastrointestinal hemorrhage (1 source) Hematochezia; Translations: [Melena] Episodic Genitourinary symptoms and ill-defined conditions (12 sources) Scalding pain on urination ; Translations: [Dysuria] 12-24-2024 Episodic Heart valve disorders (20 sources) Heart murmur; Translations: [Cardiac murmur, unspecified] Onset: 2 Resolved: 5 12-04-2022 Episodic Immunity disorders (2 sources) Patient immunocompromised; Translations: [Immunodeficiency, unspecified] 04-28-2025 Chronic Menstrual disorders (20 sources) Menometrorrhagia; Translations: [Excessive and frequent menstruation with irregular cycle] Onset: 3 Chronic Mycoses (2 sources) Candidiasis of skin; Translations: [Candidiasis of skin [...] neoplasm] Episodic Other aftercare (1 source) Other assisted (current) drug therapy; Translations: [Other assisted (current) drug therapy] Onset: 5 Episodic Other [...] Translations: [Cough] Episodic Other nervous system disorders (13 sources) Postoperative pain ; Translations: [Other acute [...] Translations: [Tobacco use] Episodic Residual codes; unclassified (10 sources) Tobacco user; Translations: [Tobacco use] 04-18-2025 Episodic Residual codes; unclassified (1 source) Tobacco use; Translations: [Tobacco use] Onset: 5 Episodic Secondary malignancies (1 source) Secondary malignant neoplasm of peritoneum; 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] 04-03-2025 Chronic Substance-related disorders (14 sources) Nicotine dependence; Translations: [Nicotine dependence, unspecified, uncomplicated] 05-02-2021 Chronic Unclassified (1 source) Acute cough; Translations: [Acute cough] Onset: 4 Unclassified (2 sources) Post-op Visit; Translations: [Post-op Visit] Onset: 5 Unclassified (20 sources) Primary leiomyosarcoma of pelvis; 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 - 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] Unclassified (9 sources) C49.5 - 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,N20.0 - Calculus of kidney Unclassified (1 source) No additional problems on file Unclassified (2 sources) New Patient; Translations: [New Patient] Onset: Urinary tract infections (12 sources) Pyelonephritis; Translations: [Tubulo-interstitial nephritis, not specified [...] Range Facility Absolute lymphocyte countOrd ered By: Imani Persaud on 05-03-2025 Lymphocytes Auto (Unsp spec) [#/Vol] 0.40 10*3/uL Low 0.83-4.51 [facility] Absolute neutrophil countOrd ered By: Imani Persaud on 05-03-2025 Neutrophils (Bld) [#/Vol] 0.0 10*3/uL Low 2.0-7.7 [facility] Anion gap in Serum or Plasma Ordered By: Imani Persaud on 05-03-2025 Anion gap [Moles/Vol] 12 mmol/L 5-15 [facility] Automated lymphocyte count a s percentage of total leukocytesOrdered By: Imani Persaud on 05-03-2025 Lymphocytes/100 WBC Auto (Unsp spec) 80.0 % High 19-41 [facility] BUN/creatinine ratioOrdered By: Imani Persaud on 05-03-2025 Urea nitrogen/Creatinine [Mass ratio] 16.5 mg/mg 10-20 [facility] Basophil percentageOrdered B y: Imani Persaud on 05-03-2025 Basophils/100 WBC (Bld) 2.0 % High 0-1 [facility] Bilirubin Test strip Ql (U)O rdered By: Delmis Corral on 05-03-2025 Bilirubin Ql (U) 3 mg/dL High Negative [facility] Comment on above: COLOR OF URINE MAY A FFECT DIPSTICK RESULTS. Blood manual differential co mment interpretation (narrative result)Ordered By: Imani Persaud on 05-03-2025 Manual differential comment Bassam (Bld) [Interp] SCANNED [facility] Comment on above: LEUKOCYTOPENIA NOTED Carbon dioxide, total [Moles /volume] in Central venous bloodOrdered By: Imani Persaud on 05-03-2025 CO2 [Moles/Vol] 20.0 mmol/L Low 21.0-32.0 [facility] Chloride assayOrdered By: Jonatan Persaud on 05-03-2025 Chloride [Moles/Vol] 101 mmol/L 98-108 [facility] Eosinophil percentageOrdered By: Imani Persaud on 05-03-2025 Eosinophils/100 WBC (Bld) 6.0 % High 0-5 [facility] Erythrocyte distribution wid th ratioOrdered By: Imani Persaud on 05-03-2025 Erythrocyte distribution width (RBC) [Ratio] 12.5 % 11.6-14.6 [facility] Erythrocyte distribution wid th standard deviationOrdered By: Imani Persaud on 05-03-2025 Erythrocyte distribution width (RBC) [Ratio] 36.5 fl 35.1-43.9 [facility] Glomerular filtration rate ( GFR) estimation/1.73 sq m using serum, plasma, or whole bOrdered By: Imani Persaud on 05-03-2025 GFR/1.73 sq M.predicted among non-blacks MDRD (S/P/Bld) [Vol rate/Area] 107 mL/min/{1.73_m2} >60 [facility] Comment on above: mL/min/1.73m2 CKD-EP I Creatinine Equation (2020) Hematocrit Auto (Bld) [Volum e fraction]Ordered By: Imani Persaud on 05-03-2025 Hematocrit (Bld) [Volume fraction] 32.4 % Low 37-47 [facility] Hemoglobin measurementOrdere d By: Imani Persaud on 05-03-2025 Hemoglobin (Bld) [Mass/Vol] 11.6 g/dL Low 12.0-15.0 [facility] Immature granulocytes/100 WB C Auto (Bld)Ordered By: [facility] Persaud on 05-03-2025 Immature granulocytes/100 WBC (Bld) 0.000 % 0.0-0.9 [facility] Comment on above: IG% - Immature Granu locytes (promyelocytes, myelocytes and metamyelocytes) > 1% indicates that a LEFT SHIFT is Present. Ketones Test strip Ql (U)Ord ered By: Delmis Corral on 05-03-2025 Ketones Ql (U) 5 mg/dl High Negative [facility] MCV (mean corpuscular volume ) determinationOrdered By: Imani Persaud on 05-03-2025 MCV (RBC) [Entitic vol] 80.6 fL Low 81-99 [facility] Magnesium measurement (mass/ volume)Ordered By: Imani Persaud on 05-03-2025 Magnesium (Unsp spec) [Mass/Vol] 1.9 mg/dL 1.5-2.2 [facility] Mean corpuscular hemoglobin (MCH) determinationOrdered By: Imani Persaud on 05-03-2025 MCH (RBC) [Entitic mass] 28.9 pg 27.0-32.0 [facility] Mean corpuscular hemoglobin concentration (MCHC) determinationOrdered By: Imani Persaud on 05-03-2025 MCHC (RBC) [Mass/Vol] 35.8 g/dL 32-36 [facility] Mean platelet volume determi nationOrdered By: Imani Persaud on 05-03-2025 Platelet mean volume (Bld) [Entitic vol] 11.4 fL 6.2-12.0 [facility] Microscopic analysis of urin e for red blood cells (RBC)Ordered By: Delmis Corral on 05-03-2025 Microscopic analysis of urine for red blood cells (RBC) > 100 SEEN /hpf 0-5 [facility] Monocyte percentageOrdered B y: Imani Persaud on 05-03-2025 Monocytes/100 WBC (Bld) 6.0 % 0-10 [facility] Mucus LM Ql (Urine sed)Order ed By: Delmis Corral on 05-03-2025 Mucus Ql (Urine sed) 0 SEEN /hpf [facility] Neutrophil percentageOrdered By: Imani Persaud on 05-03-2025 Neutrophils/100 WBC (Bld) 6.0 % Low 47-70 [facility] Nitrite Test strip Ql (U)Ord ered By: Delmis Corral on 05-03-2025 Nitrite Ql (U) Positive High Negative [facility] Nucleated red blood cell per centageOrdered By: Imani Persaud on 05-03-2025 Nucleated RBC/100 WBC (Bld) [Ratio] 0 % 0-5 [facility] Platelet countOrdered By: Jonatan Persaud on 05-03-2025 Platelets (Bld) [#/Vol] 28 10*3/uL Low 150-450 [facility] Comment on above: CRITICAL VALUE HOFFMAN D TO [id number] 1126 Gladis Lloyd.RESULTS READ BACK BY SAME. Platelet estimateOrdered By: Imani Persaud on 05-03-2025 Platelets LM Ql (Bld) MKD DEC ADEQ [facility] Potassium measurement (mass/ volume)Ordered By: Imani Persaud on 05-03-2025 Potassium (Unsp spec) [Mass/Vol] 4.1 mmol/L 3.3-5.1 [facility] Protein Test strip Ql (U)Ord ered By: Delmis Corral on 05-03-2025 Protein Ql (U) 100 mg/dl High Negative [facility] RBC Auto (Bld) [#/Vol]Ordere d By: Imani Persaud on 05-03-2025 RBC (Bld) [#/Vol] 4.02 10*6/uL Low 4.2-5.4 [facility] Review by pathologistOrdered By: Imani Persaud on 05-03-2025 Pathologist review Bassam (Unsp spec) [Interp] March [facility] Serum creatinine measurement (mass/volume)Ordered By: Imani Persaud on 05-03-2025 Creatinine [Mass/Vol] 0.59 mg/dL Low 0.70-1.20 [facility] Serum glucose measurement (m ass/volume)Ordered By: Imani Persaud on 05-03-2025 Glucose [Mass/Vol] 123 mg/dL High 70-99 [facility] Serum or plasma calcium cass urement (mass/volume)Ordered By: Imani Persaud on 05-03-2025 Calcium [Mass/Vol] 8.7 mg/dL 7.6-11.0 [facility] Serum or plasma urea nitroge n measurement (mass/volume)Ordered By: Imani Persaud on 05-03-2025 Urea nitrogen [Mass/Vol] 10 mg/dL 4-19 [facility] Sodium levelOrdered By: Jennifer Persaud on 05-03-2025 Sodium [Moles/Vol] 134 mmol/L 133-145 [facility] Squamous epithelial cells de tection in urine sediment by light microscopyOrdered By: Delmis Corral on 05-03-2025 Epithelial cells.squamous LM Ql (Urine sed) 0-5 SEEN /hpf 5-10 [facility] Urine clarityOrdered By: Vance Corral on 05-03-2025 Clarity (U) Cloudy Clear [facility] Urine color determinationOrd ered By: Delmis Corral on 05-03-2025 Color (U) Mirna Yellow [facility] Urine glucose detectionOrder ed By: Delmis Corral on 05-03-2025 Glucose Ql (U) Normal mg/dl Normal [facility] Urine leukocyte esterase det ection by dipstickOrdered By: Delmis Corral on 05-03-2025 Leukocyte esterase Test strip Ql (U) 25 /ul High Negative [facility] Urine pHOrdered By: Delmis solomon on 05-03-2025 pH (U) 6.0 [pH] 5.0 - 8.0 [facility] Urine sediment bacteria coun t by microscopy (number/high power field)Ordered By: Delmis Corral on 05-03-2025 Bacteria LM.HPF (Urine sed) [#/Area] RARE /hpf None Seen [facility] Urine specific gravity measu rementOrdered By: Delmis Corral on 05-03-2025 Specific gravity (U) [Rel density] 1.010 1.002-1.030 [facility] Urine urobilinogen measureme ntOrdered By: Delmis Corral on 05-03-2025 Urobilinogen Ql (U) 12 mg/dl High Normal [facility] White blood cell (WBC) count Ordered By: Imani Persaud on 05-03-2025 WBC (Bld) [#/Vol] 0.5 10*3/uL Low 4.4-11.0 [facility] Comment on above: CRITICAL VALUE HOFFMAN D TO [id number] 1126 [address] Lloyd.RESULTS READ BACK BY SAME. White blood cell countOrdere d By: Delmis Corral on 05-03-2025 White blood cell count 0 SEEN /hpf 0-5 [facility] Culture, Blood (WB)on 2024 CUB No growth in 48 hours. Normal [facility] Comment on above: Performed By: #### L 503.6005, L500.4050, M200.1000, L300.3900, L300.4310, L100.0100 #### [facility] [address] [place], [address] Performed By: #### L 400.0001, M100.2200 #### [facility] [address] [place], [address] Urine Cultureon 04-30-2025 [facility] Mixed Gram Positive Organisms Boncarbo Count 25,000-50,000 [facility]IX[facility] Mixed contaminants. Submit a new specimen if indicated. Normal [facility] Comment on above: Performed By: #### L 400.0001, M100.2200 #### [facility] [address] [place], [address] Absolute lymphocyte countOrd ered By: ED PROVIDER on 04-28-2025 Lymphocytes Auto (Unsp spec) [#/Vol] 0.75 10*3/uL Low 0.83-4.51 [facility] Absolute neutrophil countOrd ered By: ED PROVIDER on 04-28-2025 Neutrophils (Bld) [#/Vol] 3.5 10*3/uL 2.0-7.7 [facility] Activated partial thrombopla stin time (aPTT) in platelet poor plasma by coagulation aOrdered By: ED PROVIDER on 04-28-2025 aPTT Coag (PPP) [Time] 29.8 s 24.1-36.2 [facility] Anion gap in Serum or Plasma Ordered By: ED PROVIDER on 04-28-2025 Anion gap [Moles/Vol] 11 mmol/L 5- [facility] Automated lymphocyte count a s percentage of total leukocytesOrdered By: ED PROVIDER on 04-28-2025 Lymphocytes/100 WBC Auto (Unsp spec) 17.3 % Low 19-41 [facility] BUN/creatinine ratioOrdered By: ED PROVIDER on 04-28-2025 Urea nitrogen/Creatinine [Mass ratio] 18.8 mg/mg 10-20 [facility] Basophil percentageOrdered B y: ED PROVIDER on 04-28-2025 Basophils/100 WBC (Bld) 0.2 % 0-1 [facility] Bilirubin Test strip Ql (U)O rdered By: Girish Mcgarry on 04-28-2025 Bilirubin Ql (U) Negative Negative [facility] Bilirubin, totalOrdered By: ED PROVIDER on 04-28-2025 Bilirubin [Mass/Vol] 1.02 mg/dL 0.00-1.30 [facility] CBC W/Diff, Automatedon 04-15 RED CELL MORPH NORM C+C Normal NORM C C [facility] Comment on above: Order Comment: Comme nts: Place Priority manager monitoring CBC Tube Performed By: #### L 503.6005, L500.4050, M200.1000, L300.3900, L300.4310, L100.0100 #### [facility] Laboratory [address] [place], [address] PLT EST MOD DEC Normal ADEQ [facility] Comment on above: Order Comment: Comme nts: Place Priority manager monitoring CBC Tube Performed By: #### L 503.6005, L500.4050, M200.1000, L300.3900, L300.4310, L100.0100 #### [facility] [address] [place], [place], [address] Carbon dioxide, total [Moles /volume] in Central venous bloodOrdered By: ED PROVIDER on 04-28-2025 CO2 [Moles/Vol] 18.6 mmol/L Low 21.0-32.0 [facility] Chest PA and Lateralon 04-28 Chest PA and Lateral [facility] Imaging Services [address] [place] [address] Chest PA and Lateral MR#: [id number] Acct: [id number] Name: UZMA MCDONALD CADEN Rep #: [id number] : 1970 F 54 From: Viola Roman nd, MD PCP: Dr. David Fink MD Status: PRE ER Study: Chest PA and Lateral Date of Exam: 04/28/25 Exam# [id number] Ordering Dr: RishiEd P. PROCEDURE: CHEST PA AND LATERAL 04/28/2025 REASON FOR EXAM: NEUTROPENIC FEVER TECHNIQUE: CHEST PA AND LATERAL COMPARISON: Chest radiograph 04/02/2025. FINDINGS: Hardware: Stable right IJ port with catheter tip terminating in the right atrium. Heart: The heart size is normal. Mediastinum: The mediastinal contour is stable. Lungs: No focal consolidation, pleural effusion or pneumothorax. Bones: Degenerative changes are identified within the thoracic spine. RAD/Chest PA and Lateral IMPRESSION: NO SIGNIFICANT CHANGE SINCE THE PRIOR EXAM. Reading Location: [id number] CC: Dr. David Fink MD; ED PHYSICIAN PROVIDER [employer] Operator: Signed Normal [facility] Chloride assayOrdered By: ED PROVIDER on 04-28-2025 Chloride [Moles/Vol] 103 mmol/L 98-108 [facility] Comprehensive Metabolic Prof ilon 04-28-2025 Albumin [Mass/Vol] 3.4 g/dL Low 3.5-5.0 [facility] Comment on above: Performed By: #### L 503.6005, L500.4050, M200.1000, L300.3900, L300.4310, L100.0100 #### [facility] [address] [place], [address] Albumin/Globulin [Mass ratio] 1.1 {ratio} Normal 0.9-2.4 [facility] Comment on above: Performed By: #### L 503.6005, L500.4050, M200.1000, L300.3900, L300.4310, L100.0100 #### [facility] [address] [place], [address] ALK PHOS 93 U/L Normal 35-104 [facility] Comment on above: Performed By: #### L 503.6005, L500.4050, M200.1000, L300.3900, L300.4310, L100.0100 #### [facility] [address] [place], [address] ALT [Catalytic activity/Vol] 18 U/L Normal <=34 [facility] Comment on above: Performed By: #### L 503.6005, L500.4050, M200.1000, L300.3900, L300.4310, L100.0100 #### [facility] [address] [place], [address] AST [Catalytic activity/Vol] 21 U/L Normal <=31 [facility] Comment on above: Performed By: #### L 503.6005, L500.4050, M200.1000, L300.3900, L300.4310, L100.0100 #### [facility] [address] [place], [address] Bilirubin [Mass/Vol] 1.02 mg/dL Normal 0.00-1.30 [facility] Comment on above: Performed By: #### L 503.6005, L500.4050, M200.1000, L300.3900, L300.4310, L100.0100 #### [facility] [address] [place], [address] BUN/CRE 18.8 RATIO Normal 10-20 [facility] Comment on above: Performed By: #### L 503.6005, L500.4050, M200.1000, L300.3900, L300.4310, L100.0100 #### [facility] [address] [place], [address] Calcium [Mass/Vol] 8.4 mg/dL Normal 7.6-11.0 [facility] Comment on above: Performed By: #### L 503.6005, L500.4050, M200.1000, L300.3900, L300.4310, L100.0100 #### [facility] [address] [place], [address] Chloride [Moles/Vol] 103 mmol/L Normal 98-108 [facility] Comment on above: Performed By: #### L 503.6005, L500.4050, M200.1000, L300.3900, L300.4310, L100.0100 #### [facility] [address] [place], [address] CO2 [Moles/Vol] 18.6 mmol/L Low 21.0-32.0 [facility] Comment on above: Performed By: #### L 503.6005, L500.4050, M200.1000, L300.3900, L300.4310, L100.0100 #### [facility] [address] [place], [address] Creatinine [Mass/Vol] 0.57 mg/dL Low 0.70-1.20 [facility] Comment on above: Performed By: #### L 503.6005, L500.4050, M200.1000, L300.3900, L300.4310, L100.0100 #### [facility] [address] [place], [address] ECRCL 136.93 ml/min Normal 50-250 [facility] Comment on above: Performed By: #### L 503.6005, L500.4050, M200.1000, L300.3900, L300.4310, L100.0100 #### [facility] [address] [place], [address] GAP 11 Normal 5-15 [facility] Comment on above: Performed By: #### L 503.6005, L500.4050, M200.1000, L300.3900, L300.4310, L100.0100 #### [facility] [address] [place], [address] GFR/1.73 sq M.predicted among non-blacks MDRD (S/P/Bld) [Vol rate/Area] 108 mL/min/{1.73_m2} Normal >60 [facility] Comment on above: Result Comment: mL/m in/1.73m2 CKD-EPI Creatinine Equation (2020) Performed By: #### L 503.6005, L500.4050, M200.1000, L300.3900, L300.4310, L100.0100 #### [facility] [address] [place], [address] Globulin (S) [Mass/Vol] 3.2 g/dL Normal 2.2-4.2 [facility] Comment on above: Performed By: #### L 503.6005, L500.4050, M200.1000, L300.3900, L300.4310, L100.0100 #### [facility] [address] [place], [address] Glucose [Mass/Vol] 130 mg/dL High 70-99 [facility] Comment on above: Performed By: #### L 503.6005, L500.4050, M200.1000, L300.3900, L300.4310, L100.0100 #### [facility] [address] [place], [address] Potassium [Moles/Vol] 4.0 mmol/L Normal 3.3-5.1 [facility] Comment on above: Performed By: #### L 503.6005, L500.4050, M200.1000, L300.3900, L300.4310, L100.0100 #### [facility] [address] [place], [address] Sodium [Moles/Vol] 132 mmol/L Low 133-145 [facility] Comment on above: Performed By: #### L 503.6005, L500.4050, M200.1000, L300.3900, L300.4310, L100.0100 #### [facility] [address] [place], [address] T PROT 6.6 g/dL Normal 5.9-8.4 [facility] Comment on above: Performed By: #### L 503.6005, L500.4050, M200.1000, L300.3900, L300.4310, L100.0100 #### [facility] [address] [place], [address] Urea nitrogen [Mass/Vol] 11 mg/dL Normal 4-19 [facility] Comment on above: Performed By: #### L 503.6005, L500.4050, M200.1000, L300.3900, L300.4310, L100.0100 #### [facility] [address] [place], [address] Emergency Department Summary on 04-28-2025 Emergency Department Summary [facility] Medical Records Department [address] [place] [address] Emergency Department Summary 04/28/25 MR#: [id number] Acct: [id number] Name: UZMA MCDONALD Rep #: [id number] : 1970 54 From: Girish Mcgarry DO PCP: Dr. David Fink MD Status:DEP ER Location: ED ADDENDUM by Dr. Amarjit Davis MD on 04/29/25 at [address] Moore regarding outpt follow up. 04/29/25 0202 Cosigner Signature (if applicable): cc: Dr. David Fink MD * Signed HPI History of Present Illness Chief Complaint: Fever Informant: patient and spouse/S.O. Narrative Narrative: From oncology note dated 26 April 2025: 54-year-old female with incidental finding of a [...] underwent exploratory laparotomy left oophorectomy and removal of pelvic mass, omentectomy by Dr. Grady. 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 Left oophorectomy showed no significant pathologic changes, omentum showed no evidence of malignancy and peritoneal washings showed no malignant cells. Was seen at [facility] sarcoma clinic by Dr. Cunningham in March 2025 who recommended standard adjuvant chemotherapy with gemcitabine Taxotere for 6 cycles followed by maintenance pazopanib plus letrozole indefinite/till progression. Started adjuvant gemcitabine and Taxotere April 19, 2025. Patient had chemotherapy on April. She has been doing well. This evening noted a fever and came to the emergency department. Temperature here on my examination is 100.8. She has not had any antipyretics. She states she otherwise feels pretty well other than she has body aches. She denies any urinary symptoms no cough. No oral pharyngeal symptoms. No rashes. She has a right chest port which she states is been doing well. She does not feel short of breath and has no abdominal pain. No lower extremity swelling. [facility] Medical History Encounter for education Cancer Back [...] 81 mg PO DAILY@0800 hx of mi 06/0903/28/25 History atorvastatin 80 mg tablet 80 mg PO QHS cholesterol #90 tabs 11/29/23 Unknown Rx famotidine 20 mg tablet (Pepcid) 20 mg PO BID 11/29/23 Unknown Hist ory sertraline 50 mg tablet (Zoloft) 50 mg PO QHS 11/29/23 Unknown Hist ory lidocaine-prilocaine 2.5 %-2.5 % 1 applic topical ONCE PRN port Unknown Rx topical cream access 30 days #30 grams ondansetron 8 mg disintegrating 8 mg PO Q8H PRN nausea and 5 Unknown Rx tablet vomiting #30 tabs prochlorperazine maleate 10 mg 10 mg PO Q6H PRN nausea and Unknown Rx tablet vomiting #30 tabs dexamethasone 4 mg tablet 8 mg (2 x 4 mg) PO .COMPLEX #72 Unknown Rx tabs Allergy/AdvReac Type Severity Reaction Status Date / Time No Known Allergies Allergy Verified 04/28/25 19:29 Family History Father Kidney disease Aunt Cancer paternal Other Heart disease Surgical History H/O pelvic mass ( 01/26/25) [...] Number of servings: 2 ROS ROS ED Constitutional (more content not included)... Normal [facility] Eosinophil percentageOrdered By: ED PROVIDER on 04-28-2025 Eosinophils/100 WBC (Bld) 0.2 % 0-5 [facility] Erythrocyte distribution wid th ratioOrdered By: ED PROVIDER on 04-28-2025 Erythrocyte distribution width (RBC) [Ratio] 13.0 % 11.6-14.6 [facility] Erythrocyte distribution wid th standard deviationOrdered By: ED PROVIDER on 04-28-2025 Erythrocyte distribution width (RBC) [Ratio] 39.2 fl 35.1-43.9 [facility] Erythrocyte morphology asses smentOrdered By: ED PROVIDER on 04-28-2025 RBC morphology finding Nom (Bld) NORM C+C NORMAL NORM C&C [facility] Glomerular filtration rate ( GFR) estimation/1.73 sq m using serum, plasma, or whole bOrdered By: ED PROVIDER on 04-28-2025 GFR/1.73 sq M.predicted among non-blacks MDRD (S/P/Bld) [Vol rate/Area] 108 mL/min/{1.73_m2} >60 [facility] Comment on above: mL/min/1.73m2 CKD-EP I Creatinine Equation (2020) Hematocrit Auto (Bld) [Volum e fraction]Ordered By: ED PROVIDER on 04-28-2025 Hematocrit (Bld) [Volume fraction] 37.8 % 37-47 [facility] Hemoglobin measurementOrdere d By: ED PROVIDER on 04-28-2025 Hemoglobin (Bld) [Mass/Vol] 13.1 g/dL 12.0-15.0 [facility] Immature granulocytes/100 WB C Auto (Bld)Ordered By: ED PROVIDER on 04-28-2025 Immature granulocytes/100 WBC (Bld) 0.500 % 0.0-0.9 [facility] Comment on above: IG% - Immature Granu locytes (promyelocytes, myelocytes and metamyelocytes) > 1% indicates that a LEFT SHIFT is Present. International normalized rat io (INR) calculationOrdered By: ED PROVIDER on 04-28-2025 INR Coag (Bld) [Relative time] 1.2 {INR} [facility] Ketones Test strip Ql (U)Ord ered By: Girish Mcgarry on 04-28-2025 Ketones Ql (U) Negative Negative [facility] Laboratory - Chemistry and C hemistry - challengeOrdered By: ED PROVIDER on 04-28-2025 AST [Catalytic activity/Vol] 21 U/L <32 [facility] Lactic Acidon 04-28-2025 Lactate [Moles/Vol] mmol/L Normal 0.0-2.0 [facility] Comment on above: Order Comment: Y Performed By: #### L 503.6005, L500.4050, M200.1000, L300.3900, L300.4310, L100.0100 #### [facility] Laboratory [address] [place], [address] Lactic acid measurementOrder ed By: Girish Mcgarry on 04-28-2025 Lactate [Moles/Vol] mmol/L 0.0-2.0 [facility] MCV (mean corpuscular volume ) determinationOrdered By: ED PROVIDER on 04-28-2025 MCV (RBC) [Entitic vol] 83.3 fL 81-99 [facility] Magnesiumon 04-28-2025 Magnesium [Mass/Vol] 1.8 mg/dL Normal 1.5-2.2 [facility] Comment on above: Performed By: #### L 400.0001, M100.2200 #### [facility] [address] [place], [address] Magnesium measurement (mass/ volume)Ordered By: Girish Mcgarry on 04-28-2025 Magnesium (Unsp spec) [Mass/Vol] 1.8 mg/dL 1.5-2.2 [facility] Mean corpuscular hemoglobin (MCH) determinationOrdered By: ED PROVIDER on 04-28-2025 MCH (RBC) [Entitic mass] 28.9 pg 27.0-32.0 [facility] Mean corpuscular hemoglobin concentration (MCHC) determinationOrdered By: ED PROVIDER on 04-28-2025 MCHC (RBC) [Mass/Vol] 34.7 g/dL 32-36 [facility] Mean platelet volume determi nationOrdered By: ED PROVIDER on 04-28-2025 Platelet mean volume (Bld) [Entitic vol] 10.6 fL 6.2-12.0 [facility] Microscopic analysis of urin e for red blood cells (RBC)Ordered By: Girish Mcgarry on 04-28-2025 Microscopic analysis of urine for red blood cells (RBC) > 100 SEEN /hpf 0-5 [facility] Monocyte percentageOrdered B y: ED PROVIDER on 04-28-2025 Monocytes/100 WBC (Bld) 0.5 % 0-10 [facility] Mucus LM Ql (Urine sed)Order ed By: Girish Mcgrary on 04-28-2025 Mucus Ql (Urine sed) 3+ /hpf [facility] Neutrophil percentageOrdered By: ED PROVIDER on 04-28-2025 Neutrophils/100 WBC (Bld) 81.3 % High 47-70 [facility] Nitrite Test strip Ql (U)Ord ered By: Girish Mcgarry on 04-28-2025 Nitrite Ql (U) Negative Negative [facility] Nucleated red blood cell per centageOrdered By: ED PROVIDER on 04-28-2025 Nucleated RBC/100 WBC (Bld) [Ratio] 0 % 0-5 [facility] Partial Thromboplast Timeon 04-28-2025 aPTT Coag (Bld) [Time] 29.8 s Normal 24.1-36.2 [facility] Comment on above: Performed By: #### L 503.6005, L500.4050, M200.1000, L300.3900, L300.4310, L100.0100 #### [facility] Laboratory [facility] [address] [place], [place], [id number] Phosphoruson 04-28-2025 Phosphate [Mass/Vol] 2.1 mg/dL Low 2.7-4.5 [facility] Comment on above: Performed By: #### L 400.0001, M100.2200 #### [facility] [address] [place], [place], [address] Platelet countOrdered By: ED PROVIDER on 04-28-2025 Platelets (Bld) [#/Vol] 67 10*3/uL Low 150-450 [facility] Platelet estimateOrdered By: ED PROVIDER on 04-28-2025 Platelets LM Ql (Bld) MOD DEC ADEQ [facility] Potassium measurement (mass/ volume)Ordered By: ED PROVIDER on 04-28-2025 Potassium (Unsp spec) [Mass/Vol] 4.0 mmol/L 3.3-5.1 [facility] Protein Test strip Ql (U)Ord ered By: Girish Mcagrry on 04-28-2025 Protein Ql (U) 100 mg/dl High Negative [facility] Prothrombin Time w/INRon INR Coag (PPP) [Relative time] 1.2 {INR} Normal [facility] Comment on above: Performed By: #### L 503.6005, L500.4050, M200.1000, L300.3900, L300.4310, L100.0100 #### [facility] [address] [place], [address] (038 PT Coag (PPP) [Time] 15.3 s High 11.7-14.9 [facility] Comment on above: Performed By: #### L 503.6005, L500.4050, M200.1000, L300.3900, L300.4310, L100.0100 #### [facility] [address] [place] [place], [address] Prothrombin timeOrdered By: ED PROVIDER on 04-28-2025 PT Coag (PPP) [Time] 15.3 s High 11.7-14.9 [facility] RBC Auto (Bld) [#/Vol]Ordere d By: ED PROVIDER on 04-28-2025 RBC (Bld) [#/Vol] 4.54 10*6/uL 4.2-5.4 [facility] Serum creatinine measurement (mass/volume)Ordered By: ED PROVIDER on 04-28-2025 Creatinine [Mass/Vol] 0.57 mg/dL Low 0.70-1.20 [facility] Serum globulin measurementOr dered By: ED PROVIDER on 04-28-2025 Globulin (S) [Mass/Vol] 3.2 g/dL 2.2-4.2 [facility] Serum glucose measurement (m ass/volume)Ordered By: ED PROVIDER on 04-28-2025 Glucose [Mass/Vol] 130 mg/dL High 70-99 [facility] Serum or plasma alanine del rio otransferase (ALT) measurementOrdered By: ED PROVIDER on 04-28-2025 ALT [Catalytic activity/Vol] 18 U/L <35 [facility] Serum or plasma albumin cass urement (mass/volume)Ordered By: ED PROVIDER on 04-28-2025 Albumin [Mass/Vol] 3.4 g/dL Low 3.5-5.0 [facility] Serum or plasma albumin/glob ulin mass ratioOrdered By: ED PROVIDER on 04-28-2025 Albumin/Globulin [Mass ratio] 1.1 {ratio} 0.9-2.4 [facility] Serum or plasma alkaline tre sphatase measurementOrdered By: ED PROVIDER on 04-28-2025 ALP [Catalytic activity/Vol] 93 U/L 35-104 [facility] Serum or plasma calcium cass urement (mass/volume)Ordered By: ED PROVIDER on 04-28-2025 Calcium [Mass/Vol] 8.4 mg/dL 7.6-11.0 [facility] Serum or plasma urea nitroge n measurement (mass/volume)Ordered By: ED PROVIDER on 04-28-2025 Urea nitrogen [Mass/Vol] 11 mg/dL 4-19 [facility] Sodium levelOrdered By: LEORA TALAMANTES on 04-28-2025 Sodium [Moles/Vol] 132 mmol/L Low 133-145 [facility] Squamous epithelial cells de tection in urine sediment by light microscopyOrdered By: Girish Mcgarry on 04-28-2025 Epithelial cells.squamous LM Ql (Urine sed) 5-10 SEEN /hpf 5-10 [facility] Total proteinOrdered By: ED PROVIDER on 04-28-2025 Protein [Mass/Vol] 6.6 g/dL 5.9-8.4 [facility] Urinalysis, Completeon 04-28 BACTERIA 2+ /hpf Normal None Seen [facility] Comment on above: Order Comment: COLOR OF URINE MAY AFFECT DIPSTICK RESULTS. CLEAN CATCH Performed By: #### L 400.0001, M100.0 #### [facility] [address] [place], [address] EPI,SQUAMOUS 5-10 SEEN Normal 5-10 [facility] Comment on above: Order Comment: COLOR OF URINE MAY AFFECT DIPSTICK RESULTS. CLEAN CATCH Performed By: #### L 400.0001, M1.0 #### [facility] [address] [place], [address] Mucus Ql (Urine sed) 3+ /hpf Normal [facility] Comment on above: Order Comment: COLOR OF URINE MAY AFFECT DIPSTICK RESULTS. CLEAN CATCH Performed By: #### L 400.0001, M1.0 #### [facility] [address] [place], [address] RBC > 100 SEEN Normal 0-5 [facility] Comment on above: Order Comment: COLOR OF URINE MAY AFFECT DIPSTICK RESULTS. CLEAN CATCH Performed By: #### L 400.0001, M100.0 #### [facility] [address] [place], [address] WBC >100 SEEN Normal 0-5 [facility] Comment on above: Order Comment: COLOR OF URINE MAY AFFECT DIPSTICK RESULTS. CLEAN CATCH Performed By: #### L 400.0001, M100.0 #### [facility] [address] [place], [address] BILIRUBIN URINE Negative Normal Negative [facility] Comment on above: Order Comment: COLOR OF URINE MAY AFFECT DIPSTICK RESULTS. CLEAN CATCH Performed By: #### L 400.0001, .2199 #### [facility] [address] [place], [address] Clarity (U) Sl. Cloudy Normal Clear [facility] Comment on above: Order Comment: COLOR OF URINE MAY AFFECT DIPSTICK RESULTS. CLEAN CATCH Performed By: #### L 400.0001, .2199 #### [facility] [address] [place], [address] Color (U) Mirna Normal Yellow [facility] Comment on above: Order Comment: COLOR OF URINE MAY AFFECT DIPSTICK RESULTS. CLEAN CATCH Performed By: #### L 400.0001, #### [facility] [address] [place], [address] GLUCOSE, UR Normal Normal Normal [facility] Comment on above: Order Comment: COLOR OF URINE MAY AFFECT DIPSTICK RESULTS. CLEAN CATCH Performed By: #### L 400.0001, #### [facility] [address] [place], [address] KETONE UR Negative Normal Negative [facility] Comment on above: Order Comment: COLOR OF URINE MAY AFFECT DIPSTICK RESULTS. CLEAN CATCH Performed By: #### L 400.0001, #### [facility] [address] [place], [address] LEUK ESTERASE 100 /ul Abnormal Negative [facility] Comment on above: Order Comment: COLOR OF URINE MAY AFFECT DIPSTICK RESULTS. CLEAN CATCH Performed By: #### L 400.0001, #### [facility] [address] [place], [address] Nitrite Ql (U) Negative Normal Negative [facility] Comment on above: Order Comment: COLOR OF URINE MAY AFFECT DIPSTICK RESULTS. CLEAN CATCH Performed By: #### L 400.0001, #### [facility] [address] [place], [address] OCCULT BLOOD-UR 250 /ul Abnormal Negative [facility] Comment on above: Order Comment: COLOR OF URINE MAY AFFECT DIPSTICK RESULTS. CLEAN CATCH Performed By: #### L 400.0001, #### [facility] [facility] [address] [place], [address] pH UR 7.0 Normal 5.0 - 8.0 [facility] Comment on above: Order Comment: COLOR OF URINE MAY AFFECT DIPSTICK RESULTS. CLEAN CATCH Performed By: #### L 400.0001, #### [facility] [address] [place], [address] PROT DIPSTX 100 mg/dl Abnormal Negative [facility] Comment on above: Order Comment: COLOR OF URINE MAY AFFECT DIPSTICK RESULTS. CLEAN CATCH Performed By: #### L 400.0001, #### [facility] [address] [place], [address] SP.GR. DIPSTX 1.010 Normal 1.002-1.030 [facility] Comment on above: Order Comment: COLOR OF URINE MAY AFFECT DIPSTICK RESULTS. CLEAN CATCH Performed By: #### L 400.0001, #### [facility] [address] [place], [address] UROBILI 1 mg/dl Abnormal Normal [facility] Comment on above: Order Comment: COLOR OF URINE MAY AFFECT DIPSTICK RESULTS. CLEAN CATCH Performed By: #### L 400.0001, #### [facility] [address] [place], [address] Urine clarityOrdered By: Rodrigo Mcgarry on 04-28-2025 Clarity (U) Sl. Cloudy Clear [facility] Urine color determinationOrd ered By: Girish Mcgarry on 04-28-2025 Color (U) Mirna Yellow [facility] Urine cultureOrdered By: Rodrigo Mcgarry on 04-28-2025 Bacteria identified Cx Nom (U) Positive Abnormal [facility] Urine glucose detectionOrder ed By: Girish Mcgarry on 04-28-2025 Glucose Ql (U) Normal mg/dl Normal [facility] Urine leukocyte esterase det ection by dipstickOrdered By: Girish Mcgarry on 04-28-2025 Leukocyte esterase Test strip Ql (U) 100 /ul High Negative [facility] Urine pHOrdered By: Girish betancourt on 04-28-2025 pH (U) 7.0 [pH] 5.0 - 8.0 [facility] Urine sediment bacteria coun t by microscopy (number/high power field)Ordered By: Girish Mcgarry on 04-28-2025 Bacteria LM.HPF (Urine sed) [#/Area] 2 /[HPF] None Seen [facility] Urine specific gravity measu rementOrdered By: Girish Mcgarry on 04-28-2025 Specific gravity (U) [Rel density] 1.010 1.002-1.030 [facility] Urine urobilinogen measureme ntOrdered By: Girish Mcgarry on 04-28-2025 Urobilinogen Ql (U) 1 mg/dl High Normal [facility] White blood cell (WBC) count Ordered By: ED PROVIDER on 04-28-2025 WBC (Bld) [#/Vol] 4.3 10*3/uL Low 4.4-11.0 [facility] White blood cell countOrdere d By: Girish Mcgarry on 04-28-2025 White blood cell count >100 SEEN /hpf 0-5 [facility] Absolute lymphocyte countOrd ered By: Imani Persaud on 04-26-2025 Lymphocytes Auto (Unsp spec) [#/Vol] 1.16 10*3/uL 0.83-4.51 [facility] Absolute neutrophil countOrd ered By: Imani Persaud on 04-26-2025 Neutrophils (Bld) [#/Vol] 3.5 10*3/uL 2.0-7.7 [facility] Anion gap in Serum or Plasma Ordered By: Imani Persaud on 04-26-2025 Anion gap [Moles/Vol] 13 mmol/L 5-15 [facility] Automated lymphocyte count a s percentage of total leukocytesOrdered By: Imani Metzgeralma on 04-26-2025 Lymphocytes/100 WBC Auto (Unsp spec) 24.1 % 19-41 [facility] BUN/creatinine ratioOrdered By: [facility] Metzgeralma on 04-26-2025 Urea nitrogen/Creatinine [Mass ratio] 15.3 mg/mg 10-20 [facility] Basophil percentageOrdered B y: Imani Metzgeralma on 04-26-2025 Basophils/100 WBC (Bld) 0.2 % 0-1 [facility] Bilirubin, totalOrdered By: [facility] Metzgeralma on 04-26-2025 Bilirubin [Mass/Vol] 0.30 mg/dL 0.00-1.30 [facility] CBC W/Diff, Automatedon 04-15 Absolute Lymph 1.16 X10 3/uL Normal 0.83-4.51 [facility] Comment on above: Performed By: #### L 400.0001, M1 #### [facility] [address] [place], [address] Absolute Neut 3.5 X10 3/uL Normal 2.0-7.7 [facility] Comment on above: Performed By: #### L 400.0001, M1.0 #### [facility] [address] [place], [address] Basophils/100 WBC (Bld) 0.2 % Normal 0-1 [facility] Comment on above: Performed By: #### L 400.0001, M100.0 #### [facility] [address] [place], [address] Eosinophils/100 WBC (Bld) 0.2 % Normal 0-5 [facility] Comment on above: Performed By: #### L 400.0001, M100.2200 #### [facility] [address] [place], [address] Erythrocyte distribution width (RBC) [Ratio] 12.8 % Normal 11.6-14.6 [facility] Comment on above: Performed By: #### L 400.0001, #### [facility] [address] [place], [address] Hematocrit (Bld) [Volume fraction] 38.3 % Normal 37-47 [facility] Comment on above: Performed By: #### L 400.0001, #### [facility] [address] [place], [address] Hemoglobin (Bld) [Mass/Vol] 13.4 g/dL Normal 12.0-15.0 [facility] Comment on above: Performed By: #### L 400.0001, #### [facility] [address] [place], [address] IG% 0.200 Normal 0.0-0.9 [facility] Comment on above: Result Comment: IG% - Immature Granulocytes (promyelocytes, myelocytes and metamyelocytes) > 1% indicates that a LEFT SHIFT is Present. Performed By: #### L 400.0001, #### [facility] [address] [place], [address] Lymphocytes/100 WBC (Bld) 24.1 % Normal 19-41 [facility] Comment on above: Performed By: #### L 400.0001, #### [facility] [address] [place], [address] MCH (RBC) [Entitic mass] 29.4 pg Normal 27.0-32.0 [facility] Comment on above: Performed By: #### L 400.0001, #### [facility] [address] [place], [address] MCHC (RBC) [Mass/Vol] 35.0 g/dL Normal 32-36 [facility] Comment on above: Performed By: #### L 400.0001, #### [facility] [address] [place], [address] MCV (RBC) [Entitic vol] 84.0 fL Normal 81-99 [facility] Comment on above: Performed By: #### L 400.0001, #### [facility] [address] [place], [address] Monocytes/100 WBC (Bld) 2.5 % Normal 0-10 [facility] Comment on above: Performed By: #### L 400.0001, #### [facility] [address] [place], [address] Neutrophils/100 WBC (Bld) 72.8 % High 47-70 [facility] Comment on above: Performed By: #### L 400.0001, #### [facility] [address] [place], [address] Nucleated RBC (Bld) [#/Vol] 0 10*3/uL Normal 0-5 [facility] Comment on above: Performed By: #### L 400.0001, #### [facility] [address] [place], [address] Platelet mean volume (Bld) [Entitic vol] 10.0 fL Normal 6.2-12.0 [facility] Comment on above: Performed By: #### L 400.0001, #### [facility] [address] [place], [address] Platelets (Bld) [#/Vol] 126 10*3/uL Low 150-450 [facility] Comment on above: Performed By: #### L 400.0001, #### [facility] [address] [place], [address] RBC (Bld) [#/Vol] 4.56 10*6/uL Normal 4.2-5.4 [facility] Comment on above: Performed By: #### L 400.0001, M1.2199 #### [facility] [address] [place], [address] RDW SD 39.1 fl Normal 35.1-43.9 [facility] Comment on above: Performed By: #### L 400.0001, M1.2199 #### [facility] [address] [place], [address] WBC (Bld) [#/Vol] 4.8 10*3/uL Normal 4.4-11.0 [facility] Comment on above: Performed By: #### L 400.0001, .2199 #### [facility] [address] [place], [address] Absolute Neut Normal 2.0-7.7 [facility] Comment on above: Result Comment: DUPL ICATE TEST Performed By: #### M 100.0 #### [facility] [address] [place], [address] HCT Normal 37-47 [facility] Comment on above: Result Comment: DUPL ICATE TEST Performed By: #### M 100.2200 #### [facility] [address] [place], [address] HGB Normal 12.0-15.0 [facility] Comment on above: Result Comment: DUPL ICATE TEST Performed By: #### M 100.2200 #### [facility] [address] [place], [address] MCH Normal 27.0-32.0 [facility] Comment on above: Result Comment: DUPL ICATE TEST Performed By: #### M 100.2200 #### [facility] [address] [place], [address] MCHC Normal 32-36 [facility] Comment on above: Result Comment: DUPL ICATE TEST Performed By: #### M 100.2200 #### [facility] [address] [place], [address] MCV Normal 81-99 [facility] Comment on above: Result Comment: DUPL ICATE TEST Performed By: #### M 100.2200 #### [facility] [address] [place], [address] NEUT% Normal 47-70 [facility] Comment on above: Result Comment: DUPL ICATE TEST Performed By: #### M 100.2200 #### [facility] [address] [place], [address] PLT Normal 150-450 [facility] Comment on above: Result Comment: DUPL ICATE TEST Performed By: #### M 100.2200 #### [facility] [address] [place], [address] RBC Normal 4.2-5.4 [facility] Comment on above: Result Comment: DUPL ICATE TEST Performed By: #### M 100.2200 #### [facility] [address] [place], [address] RDW CV Normal 11.6-14.6 [facility] Comment on above: Result Comment: DUPL ICATE TEST Performed By: #### M 100.2200 #### [facility] [address] [place], [address] RDW SD Normal 35.1-43.9 [facility] Comment on above: Result Comment: DUPL ICATE TEST Performed By: #### M 100.2200 #### [facility] [address] [place], [address] WBC Normal 4.4-11.0 [facility] Comment on above: Result Comment: DUPL ICATE TEST Performed By: #### M 100.0 #### [facility] [address] [place], [address] Carbon dioxide, total [Moles /volume] in Central venous bloodOrdered By: Imani Persaud on 04-26-2025 CO2 [Moles/Vol] 20.2 mmol/L Low 21.0-32.0 [facility] Chloride assayOrdered By: Jonatan Persaud on 04-26-2025 Chloride [Moles/Vol] 104 mmol/L 98-108 [facility] Comprehensive Metabolic Prof ilon 04-26-2025 Albumin [Mass/Vol] 3.9 g/dL Normal 3.5-5.0 [facility] Comment on above: Performed By: #### L 400.0001, #### [facility] [address] [place], [address] Albumin/Globulin [Mass ratio] 1.1 {ratio} Normal 0.9-2.4 [facility] Comment on above: Performed By: #### L 400.0001, #### [facility] [address] [place], [address] ALK PHOS 108 U/L High 35-104 [facility] Comment on above: Performed By: #### L 400.0001, #### [facility] [address] [place], [address] ALT [Catalytic activity/Vol] 14 U/L Normal <=34 [facility] Comment on above: Performed By: #### L 400.0001, M1 #### [facility] [address] [place], [address] AST [Catalytic activity/Vol] 13 U/L Normal <=31 [facility] Comment on above: Performed By: #### L 400.0001, M1 #### [facility] [address] [place], [address] Bilirubin [Mass/Vol] 0.30 mg/dL Normal 0.00-1.30 [facility] Comment on above: Performed By: #### L 400.0001, #### [facility] [address] [place], [address] BUN/CRE 15.3 RATIO Normal 10-20 [facility] Comment on above: Performed By: #### L 400.0001, #### [facility] [address] [place], [address] Calcium [Mass/Vol] 9.8 mg/dL Normal 7.6-11.0 [facility] Comment on above: Performed By: #### L 400.0001, #### [facility] [address] [place], [address] Chloride [Moles/Vol] 104 mmol/L Normal 98-108 [facility] Comment on above: Performed By: #### L 400.0001, #### [facility] [address] [place], [address] CO2 [Moles/Vol] 20.2 mmol/L Low 21.0-32.0 [facility] Comment on above: Performed By: #### L 400.0001, #### [facility] [address] [place], [address] Creatinine [Mass/Vol] 0.57 mg/dL Low 0.70-1.20 [facility] Comment on above: Performed By: #### L 400.0001, #### [facility] [address] [place], [address] ECRCL 137.98 ml/min Normal 50-250 [facility] Comment on above: Performed By: #### L 400.0001, #### [facility] [address] [place], [address] GAP 13 Normal 5-15 [facility] Comment on above: Performed By: #### L 400.0001, #### [facility] [address] [place], [address] GFR/1.73 sq M.predicted among non-blacks MDRD (S/P/Bld) [Vol rate/Area] 108 mL/min/{1.73_m2} Normal >60 [facility] Comment on above: Result Comment: mL/m in/1.73m2 CKD-EPI Creatinine Equation (2020) Performed By: #### L 400.0001, #### [facility] [address] [place], [address] Globulin (S) [Mass/Vol] 3.4 g/dL Normal 2.2-4.2 [facility] Comment on above: Performed By: #### L 400.0001, #### [facility] [address] [place], [address] Glucose [Mass/Vol] 209 mg/dL High 70-99 [facility] Comment on above: Performed By: #### L 400.0001, #### [facility] [address] [place], [address] Potassium [Moles/Vol] 3.8 mmol/L Normal 3.3-5.1 [facility] Comment on above: Performed By: #### L 400.0001, #### [facility] [address] [place], [address] Sodium [Moles/Vol] 136 mmol/L Normal 133-145 [facility] Comment on above: Performed By: #### L 400.0001, #### [facility] [address] [place], [address] T PROT 7.3 g/dL Normal 5.9-8.4 [facility] Comment on above: Performed By: #### L 400.0001, M100.0 #### [facility] [address] [place], [place], [address] Urea nitrogen [Mass/Vol] 9 mg/dL Normal 4-19 [facility] Comment on above: Performed By: #### L 400.0001, M100.2200 #### [facility] [address] [place], [address] Eosinophil percentageOrdered By: Imani Persaud on 04-26-2025 Eosinophils/100 WBC (Bld) 0.2 % 0-5 [facility] Erythrocyte distribution wid th ratioOrdered By: [facility] Persaud on 04-26-2025 Erythrocyte distribution width (RBC) [Ratio] 12.8 % 11.6-14.6 [facility] Erythrocyte distribution wid th standard deviationOrdered By: [facility] Persaud on 04-26-2025 Erythrocyte distribution width (RBC) [Ratio] 39.1 fl 35.1-43.9 [facility] Glomerular filtration rate ( GFR) estimation/1.73 sq m using serum, plasma, or whole bOrdered By: Imani Persaud on 04-26-2025 GFR/1.73 sq M.predicted among non-blacks MDRD (S/P/Bld) [Vol rate/Area] 108 mL/min/{1.73_m2} >60 [facility] Comment on above: mL/min/1.73m2 CKD-EP I Creatinine Equation (2020) Hematocrit Auto (Bld) [Volum e fraction]Ordered By: Imani Persaud on 04-26-2025 Hematocrit (Bld) [Volume fraction] 38.3 % 37-47 [facility] Hemoglobin measurementOrdere d By: Imani Persaud on 04-26-2025 Hemoglobin (Bld) [Mass/Vol] 13.4 g/dL 12.0-15.0 [facility] Immature granulocytes/100 WB C Auto (Bld)Ordered By: Imani Persaud on 04-26-2025 Immature granulocytes/100 WBC (Bld) 0.200 % 0.0-0.9 [facility] Comment on above: IG% - Immature Granu locytes (promyelocytes, myelocytes and metamyelocytes) > 1% indicates that a LEFT SHIFT is Present. Laboratory - Chemistry and C hemistry - challengeOrdered By: Imani Persaud on 04-26-2025 AST [Catalytic activity/Vol] 13 U/L <32 [facility] MCV (mean corpuscular volume ) determinationOrdered By: Imani Persaud on 04-26-2025 MCV (RBC) [Entitic vol] 84.0 fL 81-99 [facility] Magnesiumon 04-26-2025 Magnesium [Mass/Vol] 2.0 mg/dL Normal 1.5-2.2 [facility] Comment on above: Performed By: #### L 400.0001, M100.2200 #### [facility] [address] [place] [address], [address] Magnesium measurement (mass/ volume)Ordered By: Imani Persaud on 04-26-2025 Magnesium (Unsp spec) [Mass/Vol] 2.0 mg/dL 1.5-2.2 [facility] Mean corpuscular hemoglobin (MCH) determinationOrdered By: Imani Presaud on 04-26-2025 MCH (RBC) [Entitic mass] 29.4 pg 27.0-32.0 [facility] Mean corpuscular hemoglobin concentration (MCHC) determinationOrdered By: Imani Persaud on 04-26-2025 MCHC (RBC) [Mass/Vol] 35.0 g/dL 32-36 [facility] Mean platelet volume determi nationOrdered By: [facility] Persaud on 04-26-2025 Platelet mean volume (Bld) [Entitic vol] 10.0 fL 6.2-12.0 [facility] Monocyte percentageOrdered B y: Imani Persaud on 04-26-2025 Monocytes/100 WBC (Bld) 2.5 % 0-10 [facility] Neutrophil percentageOrdered By: Imani Persaud on 04-26-2025 Neutrophils/100 WBC (Bld) 72.8 % High 47-70 [facility] Nucleated red blood cell per centageOrdered By: Imani Persaud on 04-26-2025 Nucleated RBC/100 WBC (Bld) [Ratio] 0 % 0-5 [facility] Oncology Visit Reporton 04-15 Oncology Visit Report [facility] [place] [address] OFFICE VISIT Date of Service: 04/26/25912 MR#: [id number] Acct: [id number] Name: UZMA MCDONALD Rep #: [id number] : 1970 From: Imani Persaud MD Age/Sex: [...] May 2022. The patient was seen in [facility] emergency room January 08, 2025 with urinary [...] activity and tumor cell necrosis. IHC at [facility] positive for SMA, negative for desmin, STAT6, pancytokeratin, S100 and CD34. Additional IHC done at [facility] showed negative Desmin, negative Caldesmon, ER diffuse [...] omentectomy. * Docetaxel gemcitabine April 19, 2025 [facility] Medical History Encounter for education Cancer Back [...] (primary) hyperten (more content not included)... Normal [facility] Phosphoruson 04-26-2025 Phosphate [Mass/Vol] 2.4 mg/dL Low 2.7-4.5 [facility] Comment on above: Performed By: #### M 100.2200 #### [facility] [address] [place], [address] Platelet countOrdered By: Jonatan Persaud on 04-26-2025 Platelets (Bld) [#/Vol] 126 10*3/uL Low 150-450 [facility] Potassium measurement (mass/ volume)Ordered By: Imani Persaud on 04-26-2025 Potassium (Unsp spec) [Mass/Vol] 3.8 mmol/L 3.3-5.1 [facility] RBC Auto (Bld) [#/Vol]Ordere d By: Imani Persaud on 04-26-2025 RBC (Bld) [#/Vol] 4.56 10*6/uL 4.2-5.4 [facility] Serum creatinine measurement (mass/volume)Ordered By: Imani Persaud on 04-26-2025 Creatinine [Mass/Vol] 0.57 mg/dL Low 0.70-1.20 [facility] Serum globulin measurementOr dered By: Imani Persaud on 04-26-2025 Globulin (S) [Mass/Vol] 3.4 g/dL 2.2-4.2 [facility] Serum glucose measurement (m ass/volume)Ordered By: Imani Persaud on 04-26-2025 Glucose [Mass/Vol] 209 mg/dL High 70-99 [facility] Serum or plasma alanine del rio otransferase (ALT) measurementOrdered By: Imani Persaud on 04-26-2025 ALT [Catalytic activity/Vol] 14 U/L <35 [facility] Serum or plasma albumin cass urement (mass/volume)Ordered By: Imani Persaud on 04-26-2025 Albumin [Mass/Vol] 3.9 g/dL 3.5-5.0 [facility] Serum or plasma albumin/glob ulin mass ratioOrdered By: Imani Persaud on 04-26-2025 Albumin/Globulin [Mass ratio] 1.1 {ratio} 0.9-2.4 [facility] Serum or plasma alkaline tre sphatase measurementOrdered By: Imani Persaud on 04-26-2025 ALP [Catalytic activity/Vol] 108 U/L High 35-104 [facility] Serum or plasma calcium cass urement (mass/volume)Ordered By: Imani Persaud on 04-26-2025 Calcium [Mass/Vol] 9.8 mg/dL 7.6-11.0 [facility] Serum or plasma urea nitroge n measurement (mass/volume)Ordered By: Imani Persaud on 04-26-2025 Urea nitrogen [Mass/Vol] 9 mg/dL 4-19 [facility] Sodium levelOrdered By: Jennifer Persaud on 04-26-2025 Sodium [Moles/Vol] 136 mmol/L 133-145 [facility] Total proteinOrdered By: Lonnie Persaud on 04-26-2025 Protein [Mass/Vol] 7.3 g/dL 5.9-8.4 [facility] White blood cell (WBC) count Ordered By: Imani Persaud on 04-26-2025 WBC (Bld) [#/Vol] 4.8 10*3/uL 4.4-11.0 [facility] Absolute lymphocyte countOrd ered By: Imani Persaud on 04-19-2025 Lymphocytes Auto (Unsp spec) [#/Vol] 1.21 10*3/uL 0.83-4.51 [facility] Absolute neutrophil countOrd ered By: Imani Persaud on 04-19-2025 Neutrophils (Bld) [#/Vol] 7.4 10*3/uL 2.0-7.7 [facility] Anion gap in Serum or Plasma Ordered By: Imani Persaud on 04-19-2025 Anion gap [Moles/Vol] 14 mmol/L 5-15 [facility] Automated lymphocyte count a s percentage of total leukocytesOrdered By: Jenniferira Persaud on 04-19-2025 Lymphocytes/100 WBC Auto (Unsp spec) 12.7 % Low 19-41 [facility] BUN/creatinine ratioOrdered By: [facility] Street [facility]ira Cori on 04-19-2025 Urea nitrogen/Creatinine [Mass ratio] 19.6 mg/mg 10-20 [facility] Basophil percentageOrdered B y: Imani Persaud on 04-19-2025 Basophils/100 WBC (Bld) 0.3 % 0-1 [facility] Bilirubin, totalOrdered By: [facility] Persaud on 04-19-2025 Bilirubin [Mass/Vol] 0.33 mg/dL 0.00-1.30 [facility] CBC W/Diff, Automatedon Absolute Lymph 1.21 X10 3/uL Normal 0.83-4.51 [facility] Comment on above: Performed By: #### L 400.0001, M1 #### [facility] Laboratory [address] [place], [address] Absolute Neut 7.4 X10 3/uL Normal 2.0-7.7 [facility] Comment on above: Performed By: #### L 400.0001, M1.0 #### [facility] Laboratory [address] [place], [address] Basophils/100 WBC (Bld) 0.3 % Normal 0-1 [facility] Comment on above: Performed By: #### L 400.0001, M100.0 #### [facility] Laboratory [address] [place], [address] Eosinophils/100 WBC (Bld) 0.2 % Normal 0-5 [facility] Comment on above: Performed By: #### L 400.0001, M100.0 #### [facility] Laboratory [address] [place], [address] Erythrocyte distribution width (RBC) [Ratio] 13.8 % Normal 11.6-14.6 [facility] Comment on above: Performed By: #### L 400.0001, #### [facility] Laboratory [address] [place], [address] Hematocrit (Bld) [Volume fraction] 42.9 % Normal 37-47 [facility] Comment on above: Performed By: #### L 400.0001, #### [facility] [address] [place], [address] Hemoglobin (Bld) [Mass/Vol] 14.6 g/dL Normal 12.0-15.0 [facility] Comment on above: Performed By: #### L 400.0001, #### [facility] [address] [place], [address] IG% 0.500 Normal 0.0-0.9 [facility] Comment on above: Result Comment: IG% - Immature Granulocytes (promyelocytes, myelocytes and metamyelocytes) > 1% indicates that a LEFT SHIFT is Present. Performed By: #### L 400.0001, #### [facility] Laboratory [address] [place], [address] Lymphocytes/100 WBC (Bld) 12.7 % Low 19-41 [facility] Comment on above: Performed By: #### L 400.0001, #### [facility] [address] [place], [address] MCH (RBC) [Entitic mass] 29.1 pg Normal 27.0-32.0 [facility] Comment on above: Performed By: #### L 400.0001, #### [facility] [address] [place], [address] MCHC (RBC) [Mass/Vol] 34.0 g/dL Normal 32-36 [facility] Comment on above: Performed By: #### L 400.0001, #### [facility] [address] [place], [address] MCV (RBC) [Entitic vol] 85.5 fL Normal 81-99 [facility] Comment on above: Performed By: #### L 400.0001, #### [facility] [address] [place], [address] Monocytes/100 WBC (Bld) 8.1 % Normal 0-10 [facility] Comment on above: Performed By: #### L 400.0001, #### [facility] [address] [place], [address] Neutrophils/100 WBC (Bld) 78.2 % High 47-70 [facility] Comment on above: Performed By: #### L 400.0001, #### [facility] [address] [place], [address] Nucleated RBC (Bld) [#/Vol] 0 10*3/uL Normal 0-5 [facility] Comment on above: Performed By: #### L 400.0001, #### [facility] Laboratory [address] [place], [address] Platelet mean volume (Bld) [Entitic vol] 9.7 fL Normal 6.2-12.0 [facility] Comment on above: Performed By: #### L 400.0001, #### [facility] [address] [place], [address] Platelets (Bld) [#/Vol] 226 10*3/uL Normal 150-450 [facility] Comment on above: Performed By: #### L 400.0001, #### [facility] [address] [place], [address] RBC (Bld) [#/Vol] 5.02 10*6/uL Normal 4.2-5.4 [facility] Comment on above: Performed By: #### L 400.0001, #### [facility] Laboratory [address] [place], [address] RDW SD 43.0 fl Normal 35.1-43.9 [facility] Comment on above: Performed By: #### L 400.0001, #### [facility] Laboratory [address] [place], [address] WBC (Bld) [#/Vol] 9.5 10*3/uL Normal 4.4-11.0 [facility] Comment on above: Performed By: #### L 400.0001, #### [facility] [address] [place], [address] Carbon dioxide, total [Moles /volume] in Central venous bloodOrdered By: Imani Persaud on 04-19-2025 CO2 [Moles/Vol] 18.6 mmol/L Low 21.0-32.0 [facility] Chloride assayOrdered By: Jonatan Persaud on 04-19-2025 Chloride [Moles/Vol] 105 mmol/L 98-108 [facility] Comprehensive Metabolic Prof ilon 04-19-2025 Albumin [Mass/Vol] 4.0 g/dL Normal 3.5-5.0 [facility] Comment on above: Performed By: #### L 400.0001, #### [facility] Laboratory [address] [place], [address] Albumin/Globulin [Mass ratio] 1.1 {ratio} Normal 0.9-2.4 [facility] Comment on above: Performed By: #### L 400.0001, #### [facility] [address] [place], [address] ALK PHOS 115 U/L High 35-104 [facility] Comment on above: Performed By: #### L 400.0001, #### [facility] Laboratory [address] [place], [address] ALT [Catalytic activity/Vol] 14 U/L Normal <=34 [facility] Comment on above: Performed By: #### L 400.0001, #### [facility] [address] [place], [address] AST [Catalytic activity/Vol] 16 U/L Normal <=31 [facility] Comment on above: Performed By: #### L 400.0001, #### [facility] [address] [place], [address] Bilirubin [Mass/Vol] 0.33 mg/dL Normal 0.00-1.30 [facility] Comment on above: Performed By: #### L 400.0001, #### [facility] [address] [place], [address] BUN/CRE 19.6 RATIO Normal 10-20 [facility] Comment on above: Performed By: #### L 400.0001, #### [facility] [address] [place], [address] Calcium [Mass/Vol] 9.6 mg/dL Normal 7.6-11.0 [facility] Comment on above: Performed By: #### L 400.0001, #### [facility] [address] [place], [address] Chloride [Moles/Vol] 105 mmol/L Normal 98-108 [facility] Comment on above: Performed By: #### L 400.0001, #### [facility] [address] [place], [address] CO2 [Moles/Vol] 18.6 mmol/L Low 21.0-32.0 [facility] Comment on above: Performed By: #### L 400.0001, #### [facility] [address] [place], [address] Creatinine [Mass/Vol] 0.59 mg/dL Low 0.70-1.20 [facility] Comment on above: Performed By: #### L 400.0001, #### [facility] [address] [place], [address] ECRCL 133.85 ml/min Normal 50-250 [facility] Comment on above: Performed By: #### L 400.0001, #### [facility] [address] [place], [address] GAP 14 Normal 5-15 [facility] Comment on above: Performed By: #### L 400.0001, #### [facility] Laboratory [address] [place], [address] GFR/1.73 sq M.predicted among non-blacks MDRD (S/P/Bld) [Vol rate/Area] 107 mL/min/{1.73_m2} Normal >60 [facility] Comment on above: Result Comment: mL/m in/1.73m2 CKD-EPI Creatinine Equation (2020) Performed By: #### L 400.0001, #### [facility] Laboratory [address] [place], [address] Globulin (S) [Mass/Vol] 3.8 g/dL Normal 2.2-4.2 [facility] Comment on above: Performed By: #### L 400.0001, #### [facility] [address] [place], [address] Glucose [Mass/Vol] 161 mg/dL High 70-99 [facility] Comment on above: Performed By: #### L 400.0001, M1.0 #### [facility] Laboratory [address] [place], [address] Potassium [Moles/Vol] 4.0 mmol/L Normal 3.3-5.1 [facility] Comment on above: Performed By: #### L 400.0001, M1.0 #### [facility] [address] [place], [address] Sodium [Moles/Vol] 138 mmol/L Normal 133-145 [facility] Comment on above: Performed By: #### L 400.0001, M1.0 #### [facility] [address] [place], [address] T PROT 7.7 g/dL Normal 5.9-8.4 [facility] Comment on above: Performed By: #### L 400.0001, .2199 #### [facility] [address] [place], [address] Urea nitrogen [Mass/Vol] 12 mg/dL Normal 4-19 [facility] Comment on above: Performed By: #### L 400.0001, M1.0 #### [facility] Laboratory [address] [place], [address] Eosinophil percentageOrdered By: Imani Persaud on 04-19-2025 Eosinophils/100 WBC (Bld) 0.2 % 0-5 [facility] Erythrocyte distribution wid th ratioOrdered By: Imani Persaud on 04-19-2025 Erythrocyte distribution width (RBC) [Ratio] 13.8 % 11.6-14.6 [facility] Erythrocyte distribution wid th standard deviationOrdered By: Imani Persaud on 04-19-2025 Erythrocyte distribution width (RBC) [Ratio] 43.0 fl 35.1-43.9 [facility] Glomerular filtration rate ( GFR) estimation/1.73 sq m using serum, plasma, or whole bOrdered By: Imani Persaud on 04-19-2025 GFR/1.73 sq M.predicted among non-blacks MDRD (S/P/Bld) [Vol rate/Area] 107 mL/min/{1.73_m2} >60 [facility] Comment on above: mL/min/1.73m2 CKD-EP I Creatinine Equation (2020) Hematocrit Auto (Bld) [Volum e fraction]Ordered By: Imani Persaud on 04-19-2025 Hematocrit (Bld) [Volume fraction] 42.9 % 37-47 [facility] Hemoglobin measurementOrdere d By: [facility] Persaud on 04-19-2025 Hemoglobin (Bld) [Mass/Vol] 14.6 g/dL 12.0-15.0 [facility] Immature granulocytes/100 WB C Auto (Bld)Ordered By: [facility] Persaud on 04-19-2025 Immature granulocytes/100 WBC (Bld) 0.500 % 0.0-0.9 [facility] Comment on above: IG% - Immature Granu locytes (promyelocytes, myelocytes and metamyelocytes) > 1% indicates that a LEFT SHIFT is Present. Laboratory - Chemistry and C hemistry - challengeOrdered By: [facility] Persaud on 04-19-2025 AST [Catalytic activity/Vol] 16 U/L <32 [facility] MCV (mean corpuscular volume ) determinationOrdered By: [facility] Persaud on 04-19-2025 MCV (RBC) [Entitic vol] 85.5 fL 81-99 [facility] Magnesiumon 04-19-2025 Magnesium [Mass/Vol] 2.1 mg/dL Normal 1.5-2.2 [facility] Comment on above: Performed By: #### L 400.0001, M100.2200 #### [facility] Laboratory [facility] [place], [address] Magnesium measurement (mass/ volume)Ordered By: Imani Persaud on 04-19-2025 Magnesium (Unsp spec) [Mass/Vol] 2.1 mg/dL 1.5-2.2 [facility] Mean corpuscular hemoglobin (MCH) determinationOrdered By: Imani Persaud on 04-19-2025 MCH (RBC) [Entitic mass] 29.1 pg 27.0-32.0 [facility] Mean corpuscular hemoglobin concentration (MCHC) determinationOrdered By: Imani Persaud on 04-19-2025 MCHC (RBC) [Mass/Vol] 34.0 g/dL 32-36 [facility] Mean platelet volume determi nationOrdered By: Imani Persaud on 04-19-2025 Platelet mean volume (Bld) [Entitic vol] 9.7 fL 6.2-12.0 [facility] Monocyte percentageOrdered B y: Imani Persaud on 04-19-2025 Monocytes/100 WBC (Bld) 8.1 % 0-10 [facility] Neutrophil percentageOrdered By: Imani Persaud on 04-19-2025 Neutrophils/100 WBC (Bld) 78.2 % High 47-70 [facility] Nucleated red blood cell per centageOrdered By: [facility] Persaud on 04-19-2025 Nucleated RBC/100 WBC (Bld) [Ratio] 0 % 0-5 [facility] Oncology Visit Reporton Oncology Visit Report [facility] [address] [place] [address] OFFICE VISIT Date of Service: 04/19/25905 MR#: [id number] Acct: [id number] Name: UZMA MCDONALD CADEN Rep #: [id number] : 1970 From: Imani Persaud MD Age/Sex: [...] May 2022. The patient was seen in [facility] emergency room January 08, 2025 with urinary [...] activity and tumor cell necrosis. IHC at [facility] positive for SMA, negative for desmin, STAT6, pancytokeratin, S100 and CD34. Additional IHC done at [facility] showed negative Desmin, negative Caldesmon, ER diffuse [...] omentectomy. * Docetaxel gemcitabine April 19, 2025 [facility] Medical History Encounter for education Cancer Back [...] (primary) hypert (more content not included)... Normal [facility] Platelet countOrdered By: Jonatan Persaud on 04-19-2025 Platelets (Bld) [#/Vol] 226 10*3/uL 150-450 [facility] Potassium measurement (mass/ volume)Ordered By: Imani Persaud on 04-19-2025 Potassium (Unsp spec) [Mass/Vol] 4.0 mmol/L 3.3-5.1 [facility] RBC Auto (Bld) [#/Vol]Ordere d By: Imani Persaud on 04-19-2025 RBC (Bld) [#/Vol] 5.02 10*6/uL 4.2-5.4 [facility] Serum creatinine measurement (mass/volume)Ordered By: Imani Persaud on 04-19-2025 Creatinine [Mass/Vol] 0.59 mg/dL Low 0.70-1.20 [facility] Serum globulin measurementOr dered By: Imani Persaud on 04-19-2025 Globulin (S) [Mass/Vol] 3.8 g/dL 2.2-4.2 [facility] Serum glucose measurement (m ass/volume)Ordered By: Imani Persaud on 04-19-2025 Glucose [Mass/Vol] 161 mg/dL High 70-99 [facility] Serum or plasma alanine del rio otransferase (ALT) measurementOrdered By: Imani Persaud on 04-19-2025 ALT [Catalytic activity/Vol] 14 U/L <35 [facility] Serum or plasma albumin cass urement (mass/volume)Ordered By: Imani Persaud on 04-19-2025 Albumin [Mass/Vol] 4.0 g/dL 3.5-5.0 [facility] Serum or plasma albumin/glob ulin mass ratioOrdered By: Imani Persaud on 04-19-2025 Albumin/Globulin [Mass ratio] 1.1 {ratio} 0.9-2.4 [facility] Serum or plasma alkaline tre sphatase measurementOrdered By: Imani Persaud on 04-19-2025 ALP [Catalytic activity/Vol] 115 U/L High 35-104 [facility] Serum or plasma calcium cass urement (mass/volume)Ordered By: Imani Persaud on 04-19-2025 Calcium [Mass/Vol] 9.6 mg/dL 7.6-11.0 [facility] Serum or plasma urea nitroge n measurement (mass/volume)Ordered By: Imani Persaud on 04-19-2025 Urea nitrogen [Mass/Vol] 12 mg/dL 4-19 [facility] Sodium levelOrdered By: Jennifer Persaud on 04-19-2025 Sodium [Moles/Vol] 138 mmol/L 133-145 [facility] Total proteinOrdered By: Lonnie Persaud on 04-19-2025 Protein [Mass/Vol] 7.7 g/dL 5.9-8.4 [facility] White blood cell (WBC) count Ordered By: Imani Persaud on 04-19-2025 WBC (Bld) [#/Vol] 9.5 10*3/uL 4.4-11.0 [facility] Cardiology Visit Reporton Cardiology Visit Report [facility] 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 [facility] Medical History Encounter for education Cancer Back [...] non-healing lesion (more content not included)... Normal [facility] Oncology Visit Reporton 03-16 Oncology Visit Report [facility] [address] [place] [address]. [place] [address] OFFICE VISIT Date of Service: 04/04/25 1408 MR#: [id number] Acct: [id number] Name: UZMA MCDONALD CADEN Rep #: [id number] : 1970 From: Delmis Corral NP RN DIGESTIVE -C Age/Sex: 54/F Location: [facility] Status: Signed HPI Subjective Date of Service 04/04/25 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 The patient was seen in [facility] emergency room January 08, 2025 with urinary [...] activity and tumor cell necrosis. IHC at [facility] positive for SMA, negative for desmin, STAT6, pancytokeratin, S100 and CD34. Additional IHC done at [facility] showed negative Desmin, negative Caldesmon, ER diffuse [...] by way of spouse and adult children. [facility] Medical History (Updated 04/04/25 @ 15:35 by Delmis Corral RN DIGESTIVE, RN DIGESTIVE-C) Encounter for education Cancer Back pain Shortness of breath on exertion Leg cramps History of stress test Primary leiomyosarcoma of pelvis Anemia due to chronic blood loss Menorrhagia Wears dentures High cholesterol Loss of consciousness Gastric reflux Smoker Cardiology follow-up encounter History of echocardiogram Cardiac murmur History of non-ST elevation myocardial infarction (NSTEMI) (06/2014) (more content not included)... Normal [facility] CXR for Line Placementon CXR for Line Placement [facility] Imaging Services [address] [place] [address] CXR for Line Placement MR#: [id number] Acct: [id number] Name: UZMA MCDONALD Rep #: [id number] : 1970 F 54 From: Daljit olivares MD PCP: Dr. David iFnk MD Status: [facility] Study: CXR for Line Placement Date of Exam: 04/02/25 Exam# [id number] Ordering Dr: Theo Richard PROCEDURE: CXR FOR [...] is upper limits of normal. Reading Location: [place] [address] CC: Dr. Theo Richard MD; Dr. David Fink MD [employer] Operator: Signed Normal [facility] Discharge Instructionon 03-15 Discharge Instruction [facility] Medical Records Department [address] [place] [address] Instructions for Home/Discharge Instructions 04/02/25 1218 MR#: [id number] Acct: [id number] Name: UZMA MCDONALD Rep #: [id number] : 1970 54 From: Theo Richard MD PCP: Dr. David Fink MD Status:REG [facility] Discharge Instructions Procedure Gallbladder Diet Discharge Diet: [...] to schedule 2 week follow up appointment. [phone] Test Results: Test results from this visit will be discussed in further detail at your follow-up appointment, if applicable. Discharge Plan Admission Attending Provider: Theo Richard Primary Care Provider: David Fink Instructions Print Language: Wallisian Discharge Orders/Prescriptions Prescriptions: No Action sertraline [Zoloft] [...] MD CC: Dr. David Fink MD Signed [facility] MR/POSTOP.ANE 04-02-2025 MR[facility]OP[facility] Medical Records Department [address] [place] [address] Anesthesia Postop Eval I 04/02/25 1153 MR#: [id number] Acct: [id number] Name: UZMA MCDONALD Rep #: [id number] : 1970 54 From: Laquita Melendez CRNA PCP: Dr. David Fink MD Status:REG [facility] Y Race: C Location: [place] [address] Anesthesia: Postop Eval I Current Vital Signs [...] Melendez CRNA Cosigner Signature: Date CC: Signed [facility] MR/[id number] 04-02-2025 MR/POSTOPAN2 [facility] Medical Records Department [address] [facility] [place] [address] Anesthesia Postop Eval II 04/02/25 1305 MR#: [id number] Acct: [id number] Name: UZMA MCDONALD Rep #: [id number] : 1970 54 From: Ck Cotto MD PCP: Dr. David Fink MD Status:REG [facility] Y Race: C Location: [facility]07-16 Anesthesia Postop Eval I Sum Postop Eval Completion status Anesthesia document: Postop Eval 1 completed: Yes Anesthesia Postop Eval I Summary Anesthesia Postop Eval I Summary: Anesthesia Postop Eval I: Assessment Summary Airway patent Yes 04/02/25 12:06 JOURNEYMAN [email or web address].HBARR Spontaneous unlabored Yes 04/02/25 12:06 JOURNEYMAN MOLDER.HBARR respirations Mental status Awake 04/02/25 12:06 JOURNEYMAN MOLDER.HBARR nausea No 04/02/25 12:06 JOURNEYMAN MOLDER.HBARR Vomiting No 04/02/25 12:06 JOURNEYMAN MOLDER.HBARR Anesthesia Postop Eval I: Fluid Summary Crystalloid volume administer 500 04/02/25 12:06 JOURNEYMAN MOLDER.HBARR (ml) Colloids volume administered ( ml) Blood Product volume administered (ml) Total IV fluid infused 500 04/02/25 12:06 JOURNEYMAN MOLDER.HBARR Anesthesia Postop Eval I: Summary Notes Anesthesia Complication No 04/02/25 12:06 JOURNEYMAN MOLDER.HBARR Anesthesia Complication Comment: Post-operative progress note Anesthesia: Postop Eval II Evaluation Mental status: Awake Pain Level: 0 nausea: No Vomiting: No 04/02/25 1305 Date Ck Cotto MD Cosigner Signature: Date CC: Signed Normal [facility] Operative Reporton 5 Operative Report [facility] Medical Records Department [address] [place] [address] Operative Report 04/02/25 1216 MR#: [id number] Acct: [id number] Name: UZMA MCDONALD Rep #: [id number] : 1970 54 From: Theo Richard MD PCP: Dr. David Fink MD Status:[facility] Location: [place] [address] Operative Report (Standard) Operative Information Date of Procedure: 04/02/25 Pre-Operative Diagnosis: Need for vascular access for chemotherapy Post-Operative Diagnosis: Same Surgery/Procedure Performed: Ultrasound and fluoroscopy guided right chest port placement utilizing right IJ planetarium sky show technician: No Type of Anesthesia: Local MAC RN [...] apply: Implanted device Implanted device details: 8 Maltese PowerPort Estimated Blood Loss: 5 Specimen collected: [...] Richard MD; Dr. David Fink MD Signed [facility] MR/PAT.YELITZAon 03-28-2025 MR/PAT.[facility] Medical Records Department [address] [place] [address] PAT - Anesthesia 03/28/25 1633 MR#: [id number] Acct: [id number] Name: UZMA MCDONALD Rep #: [id number] : 1970 54 From: Luis Barrientos MD PCP: Dr. David Fink MD Status:PRE [facility] Y Race: C Location: [facility] Pre-Assessment Diagnosis/Proposed Procedure Planned Operative Procedure(s): INSERTION VASCULAR PORT RIGHT POSS LEFT Anesthesia History Anesthesia History - ediscovery project manager: Anesthesia History - ediscovery project manager Hx Hospitalization No 03/28/25 14:20 Any Problems [...] take am of surgery PONV PONV - ediscovery project manager: PONV - ediscovery project manager Female Yes 03/28/25 14:20 HX of Motion [...] 02/26/25 11:18 Respiratory Assessment Respiratory Assessment - ediscovery project manager: Respiratory Tract Infection Hx - ediscovery project manager Hx Respiratory Tract Infection No 03/28/25 14:20 STOP Sleep Apnea STOP Sleep Apnea - ediscovery project manager: STOP Sleep Apnea - ediscovery project manager Hx Hypertension Yes 03/28/25 14:20 Hx Sleep [...] Tobacco Use History Tobacco Use History - ediscovery project manager: Tobacco Use History - ediscovery project manager Tobacco Use Cigarettes 03/28/21 15:34 Smoking Status Current every day smoker 03/28/25 14:20 Hx Tobacco Use Yes 03/28/25 14:20 Years Smoking Packs Smoked per Day Smoking Cessation Date was within the last 15 years Hx Smoking Cessation Date Hx Smoking Cessation Counseling Hematologic Medial History Hematologic Hx - ediscovery project manager: Hematologic Medical Hx - category consultant Hx of Blood Transfusion Yes 03/28/25 14:20 [...] 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 History - ediscovery project manager: /Reproductive Hx- ediscovery project manager Hx Now No 03/28/25 14:20 Gestational Age (in weeks): EDC: Hx Hx Para Hx Section SAB No 03/28/25 14:20 [facility] Medical History (Updated 03/28/25 @ 16:14 by [...] ory s (more content not included)... Normal [facility] Oncology Visit Reporton 03-15 Oncology Visit Report [facility] [address] [place] [address] [place] [address] OFFICE VISIT Date of Service: 03/28/25 1532 MR#: [id number] Acct: [id number] Name: UZMA MCDONALD CADEN Rep #: [id number] : 1970 From: Imani Persaud MD Age/Sex: [...] May 2022. The patient was seen in [facility] emergency room January 08, 2025 with urinary [...] activity and tumor cell necrosis. IHC at [facility] positive for SMA, negative for desmin, STAT6, pancytokeratin, S100 and CD34. Additional IHC done at [facility] showed negative Desmin, negative Caldesmon, ER diffuse [...] mm left UVJ/posterior urinary bladder wall calculus. [facility] Medical History (Updated 03/28/25 @ 16:14 by [...] oral surgery (more content not included)... Normal [facility] SURG PATH REQUESTon 03-27-20 Case Report Normal [facility] Comment on above: Result Comment: Surg ica Pathology Report Case: [id number] Authorizing Provider: Christopher Cunningham MD Collected: 03/27/2025 11:33 AM Ordering Location: [facility] Received: 03/27/2025 11:33 AM [place] Pathologist: Pablo Valentine MD Specimen: SURG PATH, Uterus, bilateral fallopian tubes, right ovary Performed By: #### S URGP #### [facility] (DEFAULT) [address] [place] [address] Diagnosis Comments There is no histolog ic evidence of any malignancy in this 2021 specimen. A subsequent 2024 specimen (to be reviewed at [facility] as [id number]) demonstrates a high grade malignancy. [facility] Comment on above: Performed By: #### S URGP #### [facility] (DEFAULT) [address] [address] Gross Description [facility] Comment on above: Result Comment: The following material(s) are received from [facility], [address] [place] [address] with an identifying Surgical Pathology Report: 16 H&E slides labeled [id number]. Outside materials are returned in 60 days under separate cover with our number recorded on them. [place] for this case was: [place] Performed By: #### S URGP #### [facility] (DEFAULT) [address] [address] Microscopic Description A microscopic examination was performed. [facility] Comment on above: Performed By: #### S URGP #### [facility] (DEFAULT) [address] [address] Pathologic Diagnosis [facility] Comment on above: Result Comment: Outs erika Slides [id number] (05/28/22) Uterus with bilateral fallopian tubes and right ovary, hysterectomy with right salpingo-oophorectomy and left salpingectomy: Cervix with nabothian cysts. Inactive focally-attenuated endometrium with pseudodecidual change. Myometrium with leiomyomata. Uterine serosa with no pathological data. Fallopian tubes with benign paratubal cysts. Ovary with cortical inclusion cysts. at 1200 EDT Performed By: #### S URGP #### [facility] (DEFAULT) [address] [address] Professional Interpretation Performed at: [facility] Comment on above: Result Comment: [facility] For Immediate Release to [facility]'s [facility] Yes [address] [address] Performed By: #### S URGP #### [facility] (DEFAULT) [address] [place] [address] COMPREHENSIVE TUMOR GENOMIC PROFILE WITH MSI STATUS, SIGN OUTon 03-26-2025 Block/ [id number] (01/26/25) [facility] Comment on above: Performed By: #### N GS2 #### [facility] (DEFAULT) [address] [address] Comment Translocation status and copy number findings are based on NGS on tumor genomic DNA and may not correlate with findings by other methods (e.g. FISH or transcript analysis). [facility] Comment on above: Performed By: #### N GS2 #### [facility] (DEFAULT) [address] [address] Copy Number Findings See interpretation above. [facility] Comment on above: Performed By: #### N GS2 #### [facility] (DEFAULT) [address] [address] CTP Indication Other [facility] Comment on above: Performed By: #### N GS2 #### [facility] (DEFAULT) [address] [address] CTP MSI Status Stable Low [facility] Comment on above: Performed By: #### N GS2 #### [facility] (DEFAULT) [address] [address] CTP Mutation Level Low Normal [facility] Comment on above: Performed By: #### N GS2 #### [facility] (DEFAULT) [address] [address] CTPNGS Report/Interpretation [facility] Comment on above: Result Comment: [facility] Comprehensive Tumor Panel Patient Information Specimen Information Name: Uzma Mcdonald Source: Pelvis, mass, excision Order ID: [id number] 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 Extensive genomic complexity noted including homozygous deletion of PDCD1 and adjacent [id number] sequences, among many chromosomal segmental losses/gains. Comment: Low tumor mutation burden with high genomic complexity is consistent with a high-grade sarcoma. Correlate with pathology report for final diagnosis. Electronically Signed By: Girish Wolfe MD, PhD Clinically Significant or Potentially Significant Tumor-Associated Variants Gene Alteration Genomic Coordinates VAF Type of Alteration Significance* Therapeutic Implications Additional Information TP53 p.Y220H c.658T>C chr17:[id number]:A:G 96.8% Substitution - Missense Tier 2, Level C Evidence gnomAD: 0.0004% ClinVar: [id number] Biomarker Status Biomarker Result Therapeutic Implications Additional [...] functional data derived from the CKB database (https://Vinjab.roberto.org) or WapiL annotation. For likely germline calls, associations are [...] below for this panel are described at pathology.[facility]/CTP Mutation level: Reported per tumor type in [...] of Alteration Significance* Features Additional Information CDK12 p.R6525T c.3690C>G chr17:[id number]:C:G 4.9% Substitution - Missense Tier 3 gnomAD: [...] Performed By: #### N GS2 #### [facility] (DEFAULT) [address] [place] [address] Method/Limitations: Normal [facility] Comment on above: Result Comment: Hist ologic [...] at 94 genomic regions as assessed by mSIOnyvaxS software. MSI is reported as positive (which approximately corresponds to MSI-high status) or negative. MSI-low is not determined in this assay. Discordances with PCR-based methods may occur in up to 5% of cases. This assay provides limited DNA-based translocation detection using intron tiling of selected targets (see website for list). Detection sensitivity, using NanoSteel and ChorPpay software, is approximately 70% compared to FISH. [...] review of morphologic/histologic material, if available. See [email or web address]/CHP for gene list and the methodology and limitations for other tumor genomic features reported This test was developed and its performance determined by the [facility] of the [facility] at [address] [place] [address] under the medical direction of Jose Yao [...] Performed By: #### N GS2 #### [facility] (DEFAULT) [address] [address] Reviewed by Girish Wolfe MD [facility] Comment on above: Performed By: #### N GS2 #### [facility] (DEFAULT) [address] [address] Tissue Source Pelvis, mass, excision [facility] Comment on above: Performed By: #### N GS2 #### [facility] (DEFAULT) [address] [place] [address] Translocation Status No pathogenic chrom osomal translocations detected in limited panel assessed by intron tiling in tumor genomic DNA. [facility] Comment on above: Performed By: #### N GS2 #### [facility] (DEFAULT) [address] [address] [address] Chest, Abd, Pel w/Contras ton 03-26-2025 CT Chest, Abd, Pel w/Contrast [facility] Imaging Services [address] [place] [address] Chest, Abd, Pel w/Contrast MR#: [id number] Acct: [id number] Name: UZMA MCDONALD Rep #: [id number] : 1970 F 54 From: Benjy carbone MD PCP: Dr. David Fink MD Status: REG CLI Study: CT Chest, Abd, Pel w/Contrast Date of Exam: Exam# [id number] Ordering Dr: Imani Persaud MD PROCEDURE: CT [...] Imani Persaud MD; Dr. David Fink MD [employer]erry Operator: Signed Normal [facility] SURG PATH REQUESTon 03-26-20 25 Case Report Normal [facility] Comment on above: Result Comment: Surg ical Pathology Report Case: [id number] Authorizing Provider: Christopher Cunningham MD Collected: 03/26/2025 11:00 AM Ordering Location: [facility] Received: 03/26/2025 10:59 AM [place] Pathologist: Alexandra Lan MD Specimen: SURG PATH, A) Pelvic, pelvic mass; B) Pelvic, pelvic mass #2; C) Omentum, resection, omentum; D) Ovary, left, left ovary Performed By: #### S URGP #### [facility] (DEFAULT) [address] [place] [address] Diagnosis Comments Normal [facility] Comment on above: Performed By: #### S URGP #### [facility] (DEFAULT) [address] [place] [address] Gross Description Normal [facility] [place] [facility] Comment on above: Result Comment: The following material(s) are received from [facility], [address] [place] [address] with an identifying Surgical Pathology Report: 28 H&E and 8 non-H&E slides labeled [id number]. The [facility] Surgical Pathology Report [id number] and [facility] Surgical Pathology Report [id number] are included for review. Subsequently received from the same facility on March 29, 2025, is/are 1 paraffin block(s) marked [id number] (A7), which is/are submitted to [facility] Histology/IHC Laboratory for re-cutting and additional staining. Outside materials are returned in 60 days under separate cover with our number recorded on them. [place] for this case was: [place] Performed By: #### S URGP #### [facility] (DEFAULT) [address] [place] [address] Microscopic Description Normal [facility] Comment on above: Result Comment: A mi croscopic examination was performed. All controls show appropriate reactivity. All immunohistochemistry (IHC), in situ hybridization (DOUGLAS), and histochemical tests were developed by and are performed at the [facility] Clinical Laboratory, Histology and IHC Lab, [address] [place] [address]. All Immunofluorescent (IF) tests were developed by and are performed at the [facility] Clinical Laboratory, Renal Division, [address] [place] [address]. All tests reported here, except for PD-L1, have not been cleared by or approved by the US Food and Drug Administration (FDA). The laboratory is regulated under CLIA as qualified to perform high-complexity testing. The tests are used for clinical purposes. They should not be regarded as investigational or for research. Performed By: #### S URGP #### [facility] (DEFAULT) [address] [place] [address] Pathologic Diagnosis Normal [facility] Comment on above: Result Comment: Outs erika Slides [id number] (01/26/25) A. 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 on consult block : Positive: SMA and SMMS (focal), desmin and h-caldesmon(few cells), Ki-67 (40-50%) Negative: AE1/3, S100, HMB45, Melanoma cocktail, CD117, MDM2 Comprehensive molecular analysis detected a fully predominant TP53 mutation detected with no additional pathogenic variants detected in this panel. Extensive genomic complexity noted including homozygous deletion of PDCD1 and adjacent adq0h98-76 sequences, among many chromosomal segmental losses/gains. Low [...] of uterine leiomyomas. Dr. Grijalva has reviewed civil rights representative slides. at 2313 EDT Performed By: #### S URGP #### [facility] (DEFAULT) [address] [address] Professional Interpretation Performed at: [facility] Comment on above: Result Comment: [facility] For Immediate Release to Patient's [facility] Yes [address] [address] Performed By: #### S URGP #### [facility] (DEFAULT) [address] [address] Surgery Visit Reporton 03-26 Surgery Visit Report [facility] [address] [place] [address]. [address] [place] [address] OFFICE VISIT Date of Service: 03/26/25 MR#: [id number] Acct: [id number] Name: UZMA MCDONALD Rep #: [id number] : 1970 Provider: Dr. Theo gunter MD Age/Sex: 54/F Location: [facility] Status: Signed Intake Vital Signs 02/26/25 11:18 [...] mg PO DAILY 11/29/23 03/26/25 H istory [facility] Medical History (Updated 03/26/25 @ 13:32 by [...] Effort Inspection: (more content not included)... Normal [facility] Oncology Visit Reporton 02-13 Oncology Visit Report [facility] [address] [place] [address] OFFICE VISIT Date of Service: 02/26/25 1118 MR#: [id number] Acct: [id number] Name: KAVEHKATINAUZMA CAMACHO Rep #: [id number] : 1970 From: Imani Persaud MD Age/Sex: [...] May 2022. The patient was seen in [facility] emergency room January 08, 2025 with urinary [...] activity and tumor cell necrosis. IHC at [facility] positive for SMA, negative for desmin, STAT6, pancytokeratin, S100 and CD34. Additional IHC done at [facility] showed negative Desmin, negative Caldesmon, ER diffuse [...] 2025 peritoneal washings no malignant cells identified. [facility] Medical History (Updated 02/26/25 @ 11:58 by [...] ROS Narrative Recovered (more content not included)... Normal [facility] 02-16-2025 36 Pt called with path, to see Med Onc . Rec chemo. To see after chemo to discuss intermediate designer surveillance [facility] 02-15-[address] Antonio willard at [phone] via rightfax. Confirmation scanned within media [facility] 36 ----- Message from Reny Grady MD sent at 02/14/2025 3:41 PM EDT ----- Plz fax to Dr Lopez at [facility] ----- Message ----- From: Gigi Hill Automated User, Valerie Sent: 01/31/2025 1:18 PM EDT To: Darvin Grady MD [facility] 36on 02-14-[address] Miguel A luke, Called Dr Persaud's office at [facility] and provided recommendation for gemzar/taxotere for leiomyosarcoma. Dr Grady requested they send patient back to see him after chemo is completed. He does not need to see her before then. Called patient and informed her of same. She verbalized understanding and agreement with plan. [facility] 36 Mail box full [facility] Office Visiton 02-14-2025 Follow-up visit [id number] Kristina Mcdonald idi 1970 F Date Provider Department Center 02/14/2025 2100-KEON ASHOK D [facility] [employer] None Family History Problem Relation Age of Onset Kidney disease Father Breast cancer Father's Sister Comments: late 50's, early 60's Family Status - Relation Status Age at Father Father's Sister Alive Level of Service:06024 [place] OFFICE/OUTPATIENT ESTABLISHED LOW MDM 20 MIN Reason for Visit and Comments: Post-op Visit [559] - 2 wks IPO [facility] Progress Noteon 02-14-2025 Progress Note GYNECOLOGIC ONCOLOGY [...] addendum. This case was sent to the [facility] with the above diagnosis for parts A and B rendered by Dr. Pierce. Below is Dr. Pierce's comment. 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 Immunochemical stains performed by [facility] and submitted for review show that the tumor cells are positive for SMA and negative for desmin, STAT6, pancytokeratin, S100 and CD34. Immunochemical stains were performed at the [facility] with the following results: - Desmin: Negative [...] pt would like to get chemo at [facility] infusion center near her house - Discussed [...] half of (more content not included)... Normal [facility] SURGICAL PATHOLOGY REFERENCE LAB CONSULTon 02-08-2025 AP DISCLAIMER Normal [facility] Comment on above: Order Comment: Speci men Type: FORMALIN-FIXED PARAFFIN-EMBEDDED TISSUE SPECIMENOrdering Facility: [facility] Address: C/O [facility], DEPT OF PATHOLOGY, [place] [address] Result Comment: Abdullahi kahn Developed Test (LDT) Disclaimer: Performance characteristics of immunohistochemical, immunofluorescent, and chromogenic in-situ hybridization tests have been determined by the performing laboratory within [facility]'s Jimbo Narayan Pathology and Laboratory Medicine Department ([facility], [facility], [facility], [facility], [facility], [facility], or [facility]) in a manner consistent with CLIA requirements. One or more of these tests may not have been cleared or approved by the FDA. [facility] is regulated under CLIA as qualified to perform high-complexity testing. These tests are used for clinical purposes. These should not be regarded as investigational or for research. Positive and negative controls stain appropriately. Performed By: #### L [id number] ####[facility] [id number] [address] [place] CASE REPORT Normal [facility] Comment on above: Order Comment: Speci men Type: FORMALIN-FIXED PARAFFIN-EMBEDDED TISSUE SPECIMENOrdering Facility: [facility] Address: C/O [facility], DEPT OF PATHOLOGY, [place] [address] Result Comment: Surg [facility] Pathology Report Case: [id number] Authorizing Provider: Wolf Thorpe MD Collected: 02/08/2025 09:34 PM Ordering Location: [facility] Received: 02/08/2025 09:33 PM [facility] Pathologist: Aviva Pierce MD Specimen: Block(s) and/or Slide(s), 36 SLIDES / 1 BLOCK [id number]; A3 Performed By: #### L [id number] ####[facility] [id number] [address] [place] CLINICAL HISTORY CONSULT REQUESTED Normal [facility] Comment on above: Order Comment: Speci men Type: FORMALIN-FIXED PARAFFIN-EMBEDDED TISSUE SPECIMENOrdering Facility: [facility] Address: C/O [facility], DEPT OF PATHOLOGY, [place] [address] Performed By: #### L [id number] ####[facility] [id number] [place] [id number] [place] DIAGNOSIS COMMENT Normal [facility] Comment on above: Order Comment: Speci men Type: FORMALIN-FIXED PARAFFIN-EMBEDDED TISSUE SPECIMENOrdering Facility: [facility] Address: C/O [facility], DEPT OF PATHOLOGY, [place] [address] Result Comment: Than k you for the [...] CD34. Immunohistochemical stains were performed at the [facility] with the following results: - Desmin: Negative. [...] with the diagnosis. Performed By: #### L [id number] ####[facility] [id number] [address] [place] FINAL DIAGNOSIS Normal [facility] Comment on above: Order Comment: Speci men Type: FORMALIN-FIXED PARAFFIN-EMBEDDED TISSUE SPECIMENOrdering Facility: [facility] Address: C/O [facility], DEPT OF PATHOLOGY, [place] [address] Result Comment: Revi ew of slides from [facility] ([id number], 01/26/2025) A, B. Pelvic mass, excision: High-grade sarcoma with myogenic differentiation, favor leiomyosarcoma; see comment. at 1504 EDT Performed By: #### L [id number] ####[facility] LABCLIA [id number] [address] OF [facility] FINAL PERFORMING LAB Normal [facility] Comment on above: Order Comment: Speci men Type: FORMALIN-FIXED PARAFFIN-EMBEDDED TISSUE SPECIMENOrdering Facility: [facility] Address: C/O [facility], DEPT OF PATHOLOGY, [place] [address] Result Comment: Diag nostic interpretation performed at: [facility], [address] [facility], [place] [id number] CLIA# [id number] Reservations Manager: Juan Padilla MD Performed By: #### L [id number] ####[facility] LABCLIA [id number] [place] [id number] [facility] 30on 01-27-2025 30 Problem: Pain - Adul t Goal: Verbalizes/displays adequate comfort level or baseline comfort level Outcome: Progressing Problem: Safety - Adult Goal: Free from fall injury Outcome: Progressing Problem: Discharge Planning Goal: Discharge to home or other facility with appropriate resources Outcome: Progressing Normal [facility] CBC (HEMOGRAM)on 01-27-2025 Erythrocyte distribution width (RBC) [Ratio] 13.0 % Normal 11.5-15.0 [facility] Comment on above: Performed By: #### L [id number] #### Security Auditor: KYREE WEATHERS ([id number]) [facility] ([facility]) [address] [place] [address] Hematocrit (Bld) [Volume fraction] 28.0 % Low 35.0-47.0 [facility] Comment on above: Performed By: #### L [id number] #### Security Auditor: KYREE WEATHERS ([phone]) [facility]) [address] [place] [address] Hemoglobin (Bld) [Mass/Vol] 9.4 g/dL Low 11.7-16.0 [facility] Comment on above: Performed By: #### L [id number] #### Security Auditor: KYREE [id number]) [facility] [address] [place] [address] MCH (RBC) [Entitic mass] 29.2 pg Normal 26.0-34.0 [facility] Comment on above: Performed By: #### L [id number] #### Security Auditor: KYREE WEATHERS ([id number]) [facility] ([facility]) [address] [place] [address] MCHC 33.6 % Normal 30.5-36.0 [facility] Comment on above: Performed By: #### L [id number] #### Security Auditor: KYREE WEATHERS ([id number]) [facility] ([facility]) [address] [place] [address] MCV (RBC) [Entitic vol] 87.0 fL Normal 77.0-99.0 [facility] Comment on above: Performed By: #### L [id number] #### Security Auditor: KYREE WEATHERS ([phone]) [facility] ([facility]) [address] [place] [address] Platelet mean volume (Bld) [Entitic vol] 10.4 fL Normal 9.0-12.7 [facility] Comment on above: Performed By: #### L [id number] #### Security Auditor: KYREE WEATHERS ([phone]) [facility] ([facility]) [address] [place] [address] Platelets (Bld) [#/Vol] 200 10*3/uL Normal 140-440 [facility] Comment on above: Performed By: #### L [id number] #### Security Auditor: KYREE WEATHERS ([phone]) [facility] ([facility]) [address] [place] [address] RBC (Bld) [#/Vol] 3.22 10*6/uL Low 3.80-5.20 [facility] Comment on above: Performed By: #### L [id number] #### Security Auditor: KYREE WEATHERS ([phone]) [facility] ([facility]) [address] [place] [address] [place] WBC (Bld) [#/Vol] 10.4 10*3/uL Normal 3.6-10.7 [facility] Comment on above: Performed By: #### L [id number] #### Security Auditor: KYREE WEATHERS ([id number]) [facility] ([facility]) [address] [place] [address] CBC panel Auto (Bld)Ordered By: Theo Lopez on 01-27-2025 Erythrocyte distribution width (RBC) [Ratio] 13 % 11.5 - 15.0 % [employer] [facility] Hematocrit (Bld) [Volume fraction] 28 % Low 35.0 - 47.0 % [facility] Hemoglobin (Bld) [Mass/Vol] 9.4 g/dL Low 11.7 - 16.0 g/dL [facility] Interpretation and review of laboratory results Abnormal [facility] MCH (RBC) [Entitic mass] 29.2 pg 26.0 - 34.0 pg [facility] MCHC (RBC) [Mass/Vol] 33.6 % 30.5 - 36.0 % [facility] MCV (RBC) [Entitic vol] 87 fL 77.0 - 99.0 fL [facility] Platelet mean volume (Bld) [Entitic vol] 10.4 fL 9.0 - 12.7 fL [facility] Platelets (Bld) [#/Vol] 200 10*3/uL 140 - 440 10*3/uL [employer] [facility] RBC (Bld) [#/Vol] 3.22 10*6/uL Low 3.80 - 5.2 0 10*6/uL [employer] [facility] WBC (Bld) [#/Vol] 10.4 10*3/uL 3.6 - 10.7 10*3/uL [facility] [employer] No Panel InformationOrdered By: Linus Cain on 01-27-2025 P Hooker 53 degrees [employer] Work Phone: MO Interval 185 ms [employer] Work Phone: QRS Hooker 56 degrees [employer] Work Phone: QRSD Interval 76 ms [employer] Work Phone: QT Interval 372 ms [employer] Work Phone: QTC Interval 418 ms [employer] Phone: T Wave Hooker 53 degrees [employer] Phone: [employer] Phone: No Panel Informationon 01-27 Linus Cain MD - 01/27/2025 IMPRESSION: Sinus rhythm Low voltage, precordial leads Poor R wave progression Electronically Signed On 01-27-2025 11:41:44 EDT by Linus Cain [facility] Progress Noteon 01-27-2025 Progress Note ------ -- [...] follow-up, questions answered. Sumaya Marroquin MD -- [employer] Progress Note Please page the [facility] [employer] ONC Call RES group via Secure Chat for any questions or concerns. Date: 01/27/2025 Time: 6:09 AM Uzma Kavehtage 54 y.o. female , POD#1 s/p ExLap,Removal [...] 1,000 mg, 1,000 mg, Oral, q8h, Wendie Thompson, , 1,000 mg at 01/27/25 0509 aspirin EC tablet 81 mg, 81 mg, Oral, Daily, Wendie Thompson DO [Held by provider] clopidogrel (Plavix) tablet 75 mg, 75 mg, Oral, Daily, Wendie Thompson DO famotidine (Pepcid) tablet 20 mg, 20 mg, Oral, BID, Wendie Thompson, , 20 mg at 01/26/25 2156 losartan (Cozaar) [...] g, 17 g, Oral, Daily PRN, Wendie Thompson, sertraline (Zoloft) tablet 50 mg, 50 mg, Oral, Daily, Wendie Thompson, simethicone (Mylicon) chewable tablet 80 mg, 80 mg, Oral, q6h PRN, Wendie Thompson, sodium chloride 0.9 % infusion, 5-250 mL/hr, [...] QTC Interval 01/26/2025 418 ms Final P Hooker 01/26/2025 53 degrees Final QRS Hooker 01/26/2025 56 degrees Final T Wave Hooker 01/26/2025 53 degrees Final MO Interval 01/26/2025 185 ms Final Auto WBC [...] Final Platele (more content not included)... Normal [facility] Vital signsOrdered By: Alina Cain on 01-27-2025 Heart rate 76 /min bpm [facility] Work Phone: 30on 01-26-2025 30 Problem: Pain - Adul t Goal: Verbalizes/displays adequate comfort level or baseline comfort level Outcome: Progressing Problem: Safety - Adult Goal: Free from fall injury Outcome: Progressing Problem: Discharge Planning Goal: Discharge to home or other facility with appropriate resources Outcome: Progressing Normal [facility] ABO and Rh group Confirm Nom (Bld)on 01-26-2025 ABO group Nom (Bld) A [facility] D Ag Ql (RBC) Positive [facility] BASIC METABOLIC PANELon 01-13 Anion gap [Moles/Vol] 10 mmol/L Normal 3-13 [facility] Comment on above: Performed By: #### L AB15 #### Security Auditor: KYREE WEATHERS ([phone]) [facility]) [address] [place] [address] Calcium [Mass/Vol] 9.0 mg/dL Normal 8.4-10.2 [facility] Comment on above: Performed By: #### L AB15 #### Security Auditor: KYREE WEATHERS ([phone]) [facility] ([facility]) [address] [place] [address] [place] Chloride [Moles/Vol] 104 mmol/L Normal 98-107 [facility] Comment on above: Performed By: #### L AB15 #### Security Auditor: KYREE WEATHERS ([id number]) [facility] ([facility]) [address] [place] [address] CO2 [Moles/Vol] 22 mmol/L Normal 22-29 [facility] Comment on above: Performed By: #### L AB15 #### Security Auditor: KYREE WEATHERS ([phone]) [facility] ([facility]) [address] [place] [address] Creatinine [Mass/Vol] 0.64 mg/dL Normal 0.57-1.11 [facility] Comment on above: Performed By: #### L AB15 #### Security Auditor: KYREE WEATHERS ([phone]) [facility] ([facility]) [address] [place] [address] GLOMERULAR FILTRATION RATE ML/MIN/1.73 SQ M.PREDICTED >90.0 Normal >60.0 [facility] Comment on above: Result Comment: Calc ulation based on the Chronic Kidney Disease Epidemiology Collaboration (CKD-EPI) equation refit without adjustment for race Performed By: #### L AB15 #### Security Auditor: KYREE WEATHERS ([id number]) [facility] ([facility]) [address] [place] [address] [place] Glucose [Mass/Vol] 129 mg/dL High 74-100 [facility] Comment on above: Performed By: #### L AB15 #### Security Auditor: KYREE [id number]) [facility] ([facility]) [address] [place] [address] Potassium [Moles/Vol] 3.7 mmol/L Normal 3.5-5.1 [facility] Comment on above: Result Comment: [facility] potassium values may be up to 0.5 mmol/L lower than serum values. Performed By: #### L AB15 #### Security Auditor: KYREE WEATHERS ([phone]) [facility]) [address] [place] [address] Sodium [Moles/Vol] 136 mmol/L Normal 136-145 [facility] Comment on above: Performed By: #### L AB15 #### Security Auditor: KYREE WEATHERS ([id number]) [facility] ([facility]) [address] [place] [address] Urea nitrogen [Mass/Vol] 12 mg/dL Normal 9-23 [facility] Comment on above: Performed By: #### L AB15 #### Security Auditor: KYREE WEATHERS ([phone]) [facility] ([facility]) [address] [place] [address] BLOOD TYPE AND SCREEN GELon 01-26-2025 ABO GROUPING A Normal [facility] Comment on above: Order Comment: HOLD. Specimen is valid for 3 days - nurse to verify valid specimen Performed By: #### L AB15 #### Security Auditor: KYREE WEATHERS ([phone]) [facility] ([facility]) [address] [place] [address] RH TYPE IN BLOOD Positive Normal [facility] Comment on above: Order Comment: HOLD. Specimen is valid for 3 days - nurse to verify valid specimen Performed By: #### L AB15 #### Security Auditor: KYREE WEATHERS ([phone]) [facility] ([facility]) [address] [place] [address] Basic metabolic 1998 panelon 01-26-2025 Anion gap [Moles/Vol] 10 mmol/L 3 - 13 mmol/L [facility] Calcium [Mass/Vol] 9 mg/dL 8.4 - 10. 2 mg/dL [facility] Chloride [Moles/Vol] 104 mmol/L 98 - 10 7 mmol/L [facility] CO2 [Moles/Vol] 22 mmol/L 22 - 29 mmol/L [facility] Creatinine [Mass/Vol] 0.64 mg/dL 0.57 - 1.11 mg/dL [facility] GFR/1.73 sq M.predicted (S/P/Bld) [Vol rate/Area] - PINF [facility] Comment on above: Calculation based on the Chronic Kidney Disease Epidemiology Collaboration (CKD-EPI) equation refit without adjustment for race Glucose [Mass/Vol] 129 mg/dL High 74 - 100 mg/dL [facility] Interpretation and review of laboratory results Abnormal [facility] Potassium [Moles/Vol] 3.7 mmol/L 3.5 - 5.1 mmol/L [facility] Comment on above: Plasma potassium fredis ues may be up to 0.5 mmol/L lower than serum values. Sodium [Moles/Vol] 136 mmol/L 136 - 145 mmol/L [facility] Urea nitrogen [Mass/Vol] 12 mg/dL 9 - 23 mg/dL [facility] Blood type and Crossmatch pa chantale (Bld)on 01-26-2025 ABO group Nom (Bld) A [facility] Blood group antibody screen GEL Ql Negative [facility] D Ag Ql (RBC) Positive [facility] CBC (HEMOGRAM)on 01-26-2025 Erythrocyte distribution width (RBC) [Ratio] 13.2 % Normal 11.5-15.0 [facility] Comment on above: Performed By: #### L [id number] #### Security Auditor: KYREE WEATHERS ([id number]) [facility] ([facility]) [address] [place] [address] Hematocrit (Bld) [Volume fraction] 38.2 % Normal 35.0-47.0 [facility] Comment on above: Performed By: #### L [id number] #### Security Auditor: KYREE WEATHERS ([phone]) [facility] ([facility]) [address] [place] [address] Hemoglobin (Bld) [Mass/Vol] 13.0 g/dL Normal 11.7-16.0 [facility] Comment on above: Performed By: #### L [id number] #### Security Auditor: KYREE WEATHERS ([phone]) [facility] ([facility]) [address] [place] [address] MCH (RBC) [Entitic mass] 28.7 pg Normal 26.0-34.0 [facility] Comment on above: Performed By: #### L [id number] #### Security Auditor: KYREE WEATHERS ([id number]) [facility]) [address] [place] [address] MCHC 34.0 % Normal 30.5-36.0 [facility] Comment on above: Performed By: #### L [id number] #### Security Auditor: KYREE WEATHERS ([phone]) [facility]) [address] [place] [address] MCV (RBC) [Entitic vol] 84.3 fL Normal 77.0-99.0 [facility] Comment on above: Performed By: #### L [id number] #### Security Auditor: KYREE WEATHERS ([id number]) [facility] ([facility]) [address] [place] [address] Platelet mean volume (Bld) [Entitic vol] 10.4 fL Normal 9.0-12.7 [facility] Comment on above: Performed By: #### L [id number] #### Security Auditor: KYREE WEATHERS ([phone]) [facility]) [address] [place] [address] Platelets (Bld) [#/Vol] 227 10*3/uL Normal 140-440 [facility] Comment on above: Performed By: #### L [id number] #### Security Auditor: KYREE WEATHERS ([phone]) [facility]) [address] [place] [address] RBC (Bld) [#/Vol] 4.53 10*6/uL Normal 3.80-5.20 [facility] Comment on above: Performed By: #### L [id number] #### Security Auditor: KYREE WEATHERS ([phone]) [facility]) [address] WBC (Bld) [#/Vol] 8.5 10*3/uL Normal 3.6-10.7 [facility] Comment on above: Performed By: #### L [id number] #### Security Auditor: KYREE WEATHERS ([id number]) [facility] ([facility]) [address] [place] [address] CBC panel Auto (Bld)on 01-26 Erythrocyte distribution width (RBC) [Ratio] 13.2 % 11.5 - 15.0 % [facility] Hematocrit (Bld) [Volume fraction] 38.2 % 35.0 - 47.0 % [facility] Hemoglobin (Bld) [Mass/Vol] 13 g/dL 11.7 - 16.0 g/dL [facility] Interpretation and review of laboratory results Normal [facility] MCH (RBC) [Entitic mass] 28.7 pg 26.0 - 34.0 pg [facility] MCHC (RBC) [Mass/Vol] 34 % 30.5 - 36.0 % [facility] MCV (RBC) [Entitic vol] 84.3 fL 77.0 - 99.0 fL [facility] Platelet mean volume (Bld) [Entitic vol] 10.4 fL 9.0 - 12.7 fL [facility] Platelets (Bld) [#/Vol] 227 10*3/uL 140 - 440 10*3/uL [facility] RBC (Bld) [#/Vol] 4.53 10*6/uL 3.80 - 5.2 0 10*6/uL [facility] WBC (Bld) [#/Vol] 8.5 10*3/uL 3.6 - 10.7 10*3/uL [facility] Nursing Noteon 01-26-2025 Nursing Note Meds to Beds deliver ed to patient. Pt declined oxycodone prescription and sent back with Meds to Beds. [facility] Nursing Note Report given to Jenny PACK [facility] Nursing Note Faxed report sheet to [address] Nursing Note Patient family/visit or updated by RN at this time. Normal [facility] Op Noteon 01-26-2025 Op Note Date of [...] Hemostasis was with several small 3-0 Vicryl rdoaic-jr-jwldg's in the bladder peritoneum Bovie cautery as [...] room in stable condition by anesthesia [facility] Op Note Date: 01/26/2025 Loca tion: ACH [...] 01/26/25 0928 Routine Description: LEFT OVARY Staff: Integrity Consultant: Dora Castro RN Scrub Person: Daysi Escobar RN Lula to Circ: Sabrina Philip RN Findings: Leiomyosarcoma [...] hours if receiving Vancomycin or flouroquinolone) [facility] [id number] 01-23-2025 [id number] Medication List Accurate as of January 23, [...] Adjustments for Surgery: Take night before surgery WELD FITTER AND PARKING IN THE MAIN DECK ARE [...] instructions given to you by Dr. GRADY Showmasha with an antibacterial soap such as Dial [...] your scheduled surgery time. Please bring your [facility] folder and medication list with you day of surgery. We encourage you to write down any questions you may have for the surgeon, anesthesiologist, or other members of the surgical team and bring it with you the day of surgery. Please bring photo ID and insurance information. Normal [facility] Cancer Antigen 125on 025 CA 125 11.3 U/mL Normal 0.0-38.1 [facility] Comment on above: Result Comment: [employer] [employer] Electrochemiluminescence Immunoassay (ECLIA) Values obtained with different assay methods or kits cannot be used interchangeably. Results cannot be interpreted as absolute evidence of the presence or absence of malignant disease. Performed at: [facility] [employer] [id number] Market Reporter: Richi Vargas PhD, Phone: [phone] Performed By: #### M [id number] #### [facility] [address] [place], [address] 36on 01-19-2025 36 PAT 01.23.2025 at 9: 30 am by phone SX: 04.28.2025 at 8:30 am arrival at 6:30 am Post op 02.09.2025 at 11 am Folder and instructions given. Normal [facility] Cancer antigen 125 (CA-125) measurementOrdered By: Imani Persaud on 01-19-2025 CA 125 Antigen 11.3 U/mL 0.0-38.1 [facility] Comment on above: [employer] El ectrochemiluminescence Immunoassay(ECLIA)Values obtained with different assay methods or kits cannotbe used interchangeably. Results cannot be interpreted asabsolute evidence of the presence or absence of malignantdisease.Performed at: [facility] [employer] [id number] Director: Richi Vargas PhD, Phone: [phone] Cancer antigen 125 (CA-125) measurement 11.3 U/mL 0.0-38.1 [facility] Comment on above: [employer] El ectrochemiluminescence Immunoassay(ECLIA)Values obtained with different assay methods or kits cannotbe used interchangeably. Results cannot be interpreted asabsolute evidence of the presence or absence of malignantdisease.Performed at: [facility] [employer] [id number] Director: Richi Vargas PhD, Phone: [phone] Office Visiton 01-17-2025 Follow-up visit [id number] Kristina Mcdonald 1970 F Date Provider Department Center 01/17/2025 DARVIN FLOR [facility] [employer] None Family History Problem Relation Age of Onset Kidney disease Father Breast cancer Father's Sister Comments: late 50's, early 60's Family Status - Relation Status Age at Father Father's Sister Alive Level of Service:36626 [place] OFFICE/OUTPATIENT NEW LOW MDM 30 MINUTES Reason for Visit and Comments: Female Problem [263] Normal [facility] Progress Noteon 01-17-2025 Progress Note Rig Supervisor was offere d to the patient for exam. 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 record librarian in room during exam Normal [facility] Transvaginal Non-on 01-12-2025 Transvaginal Non- [facility] Services [address] [place], [place] [id number] Transvaginal Non- MR#: [id number] Acct: [id number] Name: UZMA MCDONALD Rep #: [id number] : 1970 F 54 From: Daljit olivares MD PCP: Dr. David Fink MD Status: REG CLI Study: Transvaginal Non- Date of Exam: Exam# [id number] Ordering Dr: Imani Persaud MD PROCEDURE: TRANSVAGINAL [...] process should be ruled out. Reading Location: [id number] CC: Dr. Imani Persaud MD; Dr. David Fink MD [employer] Operator: Signed Normal [facility] Absolute lymphocyte countOrd ered By: Imani Cori on 01-10-2025 Lymphocytes Auto (Unsp spec) [#/Vol] 1.58 10*3/uL 0.83-4.51 [facility] Absolute neutrophil countOrd ered By: [facility] Cori on 01-10-2025 Neutrophils (Bld) [#/Vol] 5.7 10*3/uL 2.0-7.7 [facility] Automated lymphocyte count a s percentage of total leukocytesOrdered By: Jenniferira Persaud on 01-10-2025 Lymphocytes/100 WBC Auto (Unsp spec) 19.3 % - [facility] BUN/creatinine ratioOrdered By: [facility] Street Hospital[facility] Persaud on 01-10-2025 Urea nitrogen/Creatinine [Mass ratio] 20.6 mg/mg High 10- [facility] Basophil percentageOrdered B y: Imani Persaud on 01-10-2025 Basophils/100 WBC (Bld) 0.9 % 0- [facility] Bilirubin, totalOrdered By: Jenniferira Persaud on 01-10-2025 Bilirubin [Mass/Vol] 0.43 mg/dL 0.00-1.30 [facility] CBC W/Diff, Automatedon 12-17 Absolute Lymph 1.58 X10 3/uL Normal 0.83-4.51 [facility] Comment on above: Performed By: #### M 100.2200 #### [facility] [address] [place], [address] Absolute Neut 5.7 X10 3/uL Normal 2.0-7.7 [facility] Comment on above: Performed By: #### M 100.2200 #### [facility] [address] [place], [address] Basophils/100 WBC (Bld) 0.9 % Normal 0-1 [facility] Comment on above: Performed By: #### M 100.2200 #### [facility] [address] [place], [address] Eosinophils/100 WBC (Bld) 3.7 % Normal 0-5 [facility] Comment on above: Performed By: #### M 100.2200 #### [facility] [address] [place], [address] Erythrocyte distribution width (RBC) [Ratio] 13.0 % Normal 11.6-14.6 [facility] Comment on above: Performed By: #### M 100.2200 #### [facility] [address] [place], [address] Hematocrit (Bld) [Volume fraction] 42.6 % Normal 37-47 [facility] Comment on above: Performed By: #### M 100.2200 #### [facility] Laboratory [address] [place], [address] Hemoglobin (Bld) [Mass/Vol] 13.9 g/dL Normal 12.0-15.0 [facility] Comment on above: Performed By: #### M 100.2200 #### [facility] [address] [place], [address] IG% 0.600 Normal 0.0-0.9 [facility] Comment on above: Result Comment: IG% - Immature Granulocytes (promyelocytes, myelocytes and metamyelocytes) > 1% indicates that a LEFT SHIFT is Present. Performed By: #### M 100.2200 #### [facility] [address] [place], [address] Lymphocytes/100 WBC (Bld) 19.3 % Normal 19-41 [facility] Comment on above: Performed By: #### M 100.2200 #### [facility] [address] [place], [address] MCH (RBC) [Entitic mass] 30.1 pg Normal 27.0-32.0 [facility] Comment on above: Performed By: #### M 100.2200 #### [facility] [address] [place], [address] MCHC (RBC) [Mass/Vol] 32.6 g/dL Normal 32-36 [facility] Comment on above: Performed By: #### M 100.2200 #### [facility] [address] [place], [address] MCV (RBC) [Entitic vol] 92.2 fL Normal 81-99 [facility] Comment on above: Performed By: #### M 100.2200 #### [facility] [address] [place], [address] Monocytes/100 WBC (Bld) 6.1 % Normal 0-10 [facility] Comment on above: Performed By: #### M 100.2200 #### [facility] [address] [place], [address] Neutrophils/100 WBC (Bld) 69.4 % Normal 47-70 [facility] Comment on above: Performed By: #### M 100.2200 #### [facility] [address] [place], [address] Nucleated RBC (Bld) [#/Vol] 0 10*3/uL Normal 0-5 [facility] Comment on above: Performed By: #### M 100.2200 #### [facility] [address] [place], [address] Platelet mean volume (Bld) [Entitic vol] 9.9 fL Normal 6.2-12.0 [facility] Comment on above: Performed By: #### M 100.2200 #### [facility] [address] [place], [address] Platelets (Bld) [#/Vol] 250 10*3/uL Normal 150-450 [facility] Comment on above: Performed By: #### M 100.2200 #### [facility] [address] [place], [address] RBC (Bld) [#/Vol] 4.62 10*6/uL Normal 4.2-5.4 [facility] Comment on above: Performed By: #### M 100.2200 #### [facility] [address] [place], [address] RDW SD 43.4 fl Normal 35.1-43.9 [facility] Comment on above: Performed By: #### M 100.2200 #### [facility] [address] [place], [address] WBC (Bld) [#/Vol] 8.2 10*3/uL Normal 4.4-11.0 [facility] Comment on above: Performed By: #### M 100.2200 #### [facility] [address] [place], [address] Carbon dioxide measurementOr dered By: Imani Persaud on 01-10-2025 CO2 [Moles/Vol] 25.5 mmol/L 22.0-29.0 [facility] Chloride measurementOrdered By: Imani Persaud on 01-10-2025 Chloride [Moles/Vol] 103 mmol/L 96-108 [facility] Comprehensive Metabolic Prof ilon 01-10-2025 CO2 [Moles/Vol] 25.5 mmol/L Normal 22.0-29.0 [facility] Comment on above: Performed By: #### M 100.2200 #### [facility] [address] [place], [address] Eosinophil percentageOrdered By: Imani Persaud on 01-10-2025 Eosinophils/100 WBC (Bld) 3.7 % 0-5 [facility] Erythrocyte distribution wid th ratioOrdered By: Imani Persaud on 01-10-2025 Erythrocyte distribution width (RBC) [Ratio] 13.0 % 11.6-14.6 [facility] Erythrocyte distribution wid th standard deviationOrdered By: Imani Persaud on 01-10-2025 Erythrocyte distribution width (RBC) [Entitic vol] 43.4 fL 35.1-43.9 [facility] Erythrocyte distribution width (RBC) [Ratio] 43.4 fl 35.1-43.9 [facility] GFR/1.73 sq M.predicted leisa g non-blacks MDRD (S/P/Bld) [Vol rate/Area]Ordered By: Imani Persaud on 01-10-2025 Estimated GFR (MDRD) Non-Af Amer 107 >60 [facility] Comment on above: mL/min/1.73m2 CKD-EP I Creatinine Equation (2020) Glomerular filtration rate ( GFR) estimation/1.73 sq m using serum, plasma, or whole bOrdered By: Imani Persaud on 01-10-2025 GFR/1.73 sq M.predicted among non-blacks MDRD (S/P/Bld) [Vol rate/Area] 107 mL/min/{1.73_m2} >60 [facility] Comment on above: mL/min/1.73m2 CKD-EP I Creatinine Equation (2020) Hematocrit Auto (Bld) [Volum e fraction]Ordered By: Imani Persaud on 01-10-2025 Hematocrit (Bld) [Volume fraction] 42.6 % 37-47 [facility] Hemoglobin (Reticulocytes) [ Entitic mass]Ordered By: Imani Persaud on 01-10-2025 Reticulocyte Hemoglobin Equivalent 29.6 pg Low 30-35 [facility] Hemoglobin measurementOrdere d By: Imani Persaud on 01-10-2025 Hemoglobin (Bld) [Mass/Vol] 13.9 g/dL 12.0-15.0 [facility] Immature granulocytes/100 WB C Auto (Bld)Ordered By: Imani Persaud on 01-10-2025 Immature granulocytes/100 WBC (Bld) 0.600 % 0.0-0.9 [facility] Comment on above: IG% - Immature Granu locytes (promyelocytes, myelocytes and metamyelocytes) > 1% indicates that a LEFT SHIFT is Present. Immature reticulocyte fracti onOrdered By: Imani Persaud on 01-10-2025 Immature Reticulocyte Fraction 22.90 % High 3.00-15.90 [facility] LDHon 01-10-2025 LDH 234 U/L Normal 84-246 [facility] Comment on above: Order Comment: 1 Performed By: #### M 100.4093 #### [facility] [address] [place], [address] Laboratory - Chemistry and C hemistry - challengeOrdered By: Imani Persaud on 01-10-2025 AST [Catalytic activity/Vol] 26 U/L <32 [facility] Lactate dehydrogenase (LDH) measurementOrdered By: [facility] Persaud on 01-10-2025 LDH [Catalytic activity/Vol] 234 U/L 84-246 [facility] Lymphocytes Auto (Unsp spec) [#/Vol]Ordered By: [facility] Persaud on 01-10-2025 Lymphocytes (Bld) [#/Vol] 1.58 10*3/uL 0.83-4.51 [facility] Lymphocytes/100 WBC Auto (Un sp spec)Ordered By: Imani Persaud on 01-10-2025 Lymphocytes/100 WBC (Bld) 19.3 % 19-41 [facility] MCV (mean corpuscular volume ) determinationOrdered By: [facility] Persaud on 01-10-2025 MCV (RBC) [Entitic vol] 92.2 fL 81-99 [facility] Mean corpuscular hemoglobin (MCH) determinationOrdered By: [facility] Persaud on 01-10-2025 MCH (RBC) [Entitic mass] 30.1 pg 27.0-32.0 [facility] Mean corpuscular hemoglobin concentration (MCHC) determinationOrdered By: [facility] Persaud on 01-10-2025 MCHC (RBC) [Mass/Vol] 32.6 g/dL 32-36 [facility] Mean platelet volume determi nationOrdered By: [facility] Persaud on 01-10-2025 Platelet mean volume (Bld) [Entitic vol] 9.9 fL 6.2-12.0 [facility] Monocyte percentageOrdered B y: Imani Persaud on 01-10-2025 Monocytes/100 WBC (Bld) 6.1 % 0-10 [facility] Neutrophil percentageOrdered By: Imani Persaud on 01-10-2025 Neutrophils/100 WBC (Bld) 69.4 % 47-70 [facility] Nucleated red blood cell per centageOrdered By: Imani Persaud on 01-10-2025 Nucleated RBC/100 WBC (Bld) [Ratio] 0 % 0-5 [facility] Oncology Visit Reporton 12-17 Oncology Visit Report [facility] [place] [facility] [place] [address] OFFICE VISIT Date of Service: 01/10/25 1259 MR#: [id number] Acct: [id number] Name: UZMA MCDONALD Rep #: [id number] : 1970 From: Imani Persaud MD Age/Sex: [...] May 2022. The patient was seen in [facility] emergency room January 08, 2025 with urinary [...] right kidney. 3. Hepatic steatosis and hepatomegaly [facility] Medical History Postoperative pain Anemia due to [...] documented Hematologic/ (more content not included)... Normal [facility] Platelet countOrdered By: Jonatan Persaud on 01-10-2025 Platelets (Bld) [#/Vol] 250 10*3/uL 150-450 [facility] RBC Auto (Bld) [#/Vol]Ordere d By: Imani Presaud on 01-10-2025 RBC (Bld) [#/Vol] 4.62 10*6/uL 4.2-5.4 [facility] Retic Panelon 01-10-2025 IM RET FRACTION 22.90 High 3.00-15.90 [facility] Comment on above: Performed By: #### Sunday 100.2200 #### [facility] [address] [place], [address] RET-HE 29.6 pg Low 30-35 [facility] Comment on above: Performed By: #### M 100.2200 #### [facility] [address] [place], [address] Retic Count 2.15 High 0.5-1.5 [facility] Comment on above: Performed By: #### Sunday 100.2200 #### [facility] [address] [place], [address] Reticulocyte hemoglobin equi valent (RET-He) measurementOrdered By: Imani Persaud on 01-10-2025 Hemoglobin (Reticulocytes) [Entitic mass] 29.6 pg Low 30-35 [facility] Reticulocytes Auto (Bld) [#/ Vol]Ordered By: Imani Persaud on 01-10-2025 Reticulocyte Count 2.15 % High 0.5-1.5 [facility] Reticulocytes/100 RBC (Bld) 2.15 % High 0.5-1.5 [facility] Serum creatinine measurement (mass/volume)Ordered By: Imani Persaud on 01-10-2025 Creatinine [Mass/Vol] 0.6 mg/dL 0.70-1.20 [facility] Serum globulin measurementOr dered By: Imani Persaud on 01-10-2025 Globulin (S) [Mass/Vol] 4.1 g/dL 2.2-4.2 [facility] Serum glucose measurement (m ass/volume)Ordered By: Imani Persaud on 01-10-2025 Glucose [Mass/Vol] 95 mg/dL 70-99 [facility] Serum or plasma alanine del rio otransferase (ALT) measurementOrdered By: Imani Persaud on 01-10-2025 ALT [Catalytic activity/Vol] 20 U/L <35 [facility] Serum or plasma albumin cass urement (mass/volume)Ordered By: Imani Persaud on 01-10-2025 Albumin [Mass/Vol] 3.7 g/dL 3.5-5.0 [facility] Serum or plasma albumin/glob ulin mass ratioOrdered By: Imani Persaud on 01-10-2025 Albumin/Globulin [Mass ratio] 0.9 {ratio} 0.9-2.4 [facility] Serum or plasma alkaline tre sphatase measurementOrdered By: Imani Persaud on 01-10-2025 ALP [Catalytic activity/Vol] 92 U/L 35-104 [facility] Serum or plasma anion gap de termination (moles/volume)Ordered By: Imani Persaud on 01-10-2025 Anion gap [Moles/Vol] 10 mmol/L 5-15 [facility] Serum or plasma calcium cass urement (mass/volume)Ordered By: Imani Persaud on 01-10-2025 Calcium [Mass/Vol] 8.9 mg/dL 7.6-11.0 [facility] Serum or plasma potassium me asurementOrdered By: Imani Persaud on 01-10-2025 Potassium [Moles/Vol] 4.2 mmol/L 3.3-5.1 [facility] Serum or plasma sodium measu rement (moles/volume)Ordered By: Imani Metzgeralma on 01-10-2025 Sodium [Moles/Vol] 138 mmol/L 133-145 [facility] Serum or plasma urea nitroge n measurement (mass/volume)Ordered By: Imani Metzgeralma on 01-10-2025 Urea nitrogen [Mass/Vol] 12 mg/dL 4-19 [facility] Total proteinOrdered By: Lonnie Persaud on 01-10-2025 Protein [Mass/Vol] 7.8 g/dL 5.9-8.4 [facility] Urine Cultureon 01-10-2025 URC Mixed Gram Positive Organisms Boncarbo Count 25,000-50,000 [facility] Mixed contaminants. Submit a new specimen if indicated. Normal [facility] Comment on above: Performed By: #### M 100.2200 #### [facility] Laboratory [address] [place], [place], [id number] White blood cell (WBC) count Ordered By: Imani Alvarado on 01-10-2025 WBC (Bld) [#/Vol] 8.2 10*3/uL 4.4-11.0 [facility] Abdomen/Pelvis W IV Cont ONL Yon 01-08-2025 Abdomen/Pelvis W IV Cont ONLY [facility] Imaging Services [address] [place], [place] [address] Abdomen/Pelvis W IV Cont ONLY MR#: [id number] Acct: [id number] Name: UZMA MCDONALD CADEN Rep #: [id number] : 1970 F 54 From: Nabil Strickland MD PCP: Dr. David Fink MD Status: REG ER Study: Abdomen/Pelvis W IV Cont ONLY Date of Exam: Exam# [id number] Ordering Dr: Nabil Santos RN DIGESTIVE-C PROCEDURE: ABDOMEN/PELVIS W IV CONT ONLY REASON [...] CC: LONG Santos; Dr. David Fink MD [employer]: Signed Normal [facility] Absolute lymphocyte countOrd ered By: ED PROVIDER on 01-08-2025 Lymphocytes Auto (Unsp spec) [#/Vol] 1.90 10*3/uL 0.83-4.51 [facility] Absolute neutrophil countOrd ered By: ED PROVIDER on 01-08-2025 Neutrophils (Bld) [#/Vol] 6.6 10*3/uL 2.0-7.7 [facility] Albumin to globulin ratioOrd ered By: ED PROVIDER on 01-08-2025 Albumin/Globulin [Mass ratio] 0.6 {ratio} Low 0.9-2.4 [facility] Automated lymphocyte count a s percentage of total leukocytesOrdered By: ED PROVIDER on 01-08-2025 Lymphocytes/100 WBC Auto (Unsp spec) 20.3 % 19-41 [facility] Basophil percentageOrdered B y: ED PROVIDER on 01-08-2025 Basophils/100 WBC (Bld) 0.6 % 0-1 [facility] Bilirubin Test strip Ql (U)O rdered By: Isaiah Villanueva on 01-08-2025 Bilirubin Ql (U) Negative Negative [facility] Bilirubin, totalOrdered By: ED PROVIDER on 01-08-2025 Bilirubin [Mass/Vol] 1.20 mg/dL High 0.20-1.00 [facility] Comment on above: For patients on eltr ombopag therapy, use of Dimension Eunice TBIL is not recommended. Blood urea nitrogen (BUN)/cr eatinine ratioOrdered By: ED PROVIDER on 01-08-2025 Urea nitrogen/Creatinine [Mass ratio] 19.1 mg/mg 10-20 [facility] CBC W/Diff, Automatedon 12-17 Absolute Lymph 1.90 X10 3/uL Normal 0.83-4.51 [facility] Comment on above: Performed By: #### M 100.2200 #### [facility] Laboratory [address] [place], [address] Absolute Neut 6.6 X10 3/uL Normal 2.0-7.7 [facility] Comment on above: Performed By: #### M 100.2200 #### [facility] [address] [place], [address] Basophils/100 WBC (Bld) 0.6 % Normal 0-1 [facility] Comment on above: Performed By: #### M 100.2200 #### [facility] [address] [place], [address] Eosinophils/100 WBC (Bld) 1.8 % Normal 0-5 [facility] Comment on above: Performed By: #### M 100.2200 #### [facility] [address] [place], [address] Erythrocyte distribution width (RBC) [Ratio] 13.2 % Normal 11.6-14.6 [facility] Comment on above: Performed By: #### M 100.2200 #### [facility] [address] [place], [address] Hematocrit (Bld) [Volume fraction] 43.8 % Normal 37-47 [facility] Comment on above: Performed By: #### M 100.2200 #### [facility] [address] [place], [address] Hemoglobin (Bld) [Mass/Vol] 14.7 g/dL Normal 12.0-15.0 [facility] Comment on above: Performed By: #### M 100.2200 #### [facility] [address] [place], [address] IG% 0.300 Normal 0.0-0.9 [facility] Comment on above: Result Comment: IG% - Immature Granulocytes (promyelocytes, myelocytes and metamyelocytes) > 1% indicates that a LEFT SHIFT is Present. Performed By: #### M 100.2200 #### [facility] [address] [place], [address] Lymphocytes/100 WBC (Bld) 20.3 % Normal 19-41 [facility] Comment on above: Performed By: #### M 100.2200 #### [facility] [address] [place], [address] MCH (RBC) [Entitic mass] 29.8 pg Normal 27.0-32.0 [facility] Comment on above: Performed By: #### M 100.2200 #### [facility] [address] [place], [address] MCHC (RBC) [Mass/Vol] 33.6 g/dL Normal 32-36 [facility] Comment on above: Performed By: #### M 100.2200 #### [facility] [address] [place], [address] MCV (RBC) [Entitic vol] 88.7 fL Normal 81-99 [facility] Comment on above: Performed By: #### M 100.2200 #### [facility] [address] [place], [address] Monocytes/100 WBC (Bld) 6.3 % Normal 0-10 [facility] Comment on above: Performed By: #### M 100.2200 #### [facility] [address] [place], [address] Neutrophils/100 WBC (Bld) 70.7 % High 47-70 [facility] Comment on above: Performed By: #### M 100.220 #### [facility] [address] [place], [address] Nucleated RBC (Bld) [#/Vol] 0 10*3/uL Normal 0-5 [facility] Comment on above: Performed By: #### M 100.2199 #### [facility] [address] [place], [address] Platelet mean volume (Bld) [Entitic vol] 9.7 fL Normal 6.2-12.0 [facility] Comment on above: Performed By: #### M 100.2199 #### [facility] [address] [place], [address] Platelets (Bld) [#/Vol] 237 10*3/uL Normal 150-450 [facility] Comment on above: Performed By: #### M 100.2199 #### [facility] [address] [place], [address] RBC (Bld) [#/Vol] 4.94 10*6/uL Normal 4.2-5.4 [facility] Comment on above: Performed By: #### M 100.2200 #### [facility] [address] [place], [address] RDW SD 42.5 fl Normal 35.1-43.9 [facility] Comment on above: Performed By: #### M 100.220 #### [facility] [address] [place], [address] WBC (Bld) [#/Vol] 9.4 10*3/uL Normal 4.4-11.0 [facility] Comment on above: Performed By: #### M 100.2200 #### [facility] [address] [place], [address] Carbon dioxide measurementOr dered By: ED PROVIDER on 01-08-2025 CO2 [Moles/Vol] 29.0 mmol/L 21.0-32.0 [facility] Chloride measurementOrdered By: ED PROVIDER on 01-08-2025 Chloride [Moles/Vol] 100 mmol/L 98-107 [facility] Comprehensive Metabolic Prof ilon 01-08-2025 Albumin [Mass/Vol] 3.0 g/dL Low 3.2-5.0 [facility] Comment on above: Performed By: #### M 100.2200 #### [facility] [address] [place], [address] Albumin/Globulin [Mass ratio] 0.6 {ratio} Low 0.9-2.4 [facility] Comment on above: Performed By: #### M 100.2200 #### [facility] [address] [place], [address] ALK P 98 U/L Normal 45-117 [facility] Comment on above: Performed By: #### M 100.2200 #### [facility] [address] [place], [address] ALT [Catalytic activity/Vol] 23 U/L Normal 13-56 [facility] Comment on above: Performed By: #### M 100.2200 #### [facility] [address] [place], [address] AST [Catalytic activity/Vol] 16 U/L Normal 15-37 [facility] Comment on above: Performed By: #### M 100.2200 #### [facility] [address] [place], [address] Bilirubin [Mass/Vol] 1.20 mg/dL High 0.20-1.00 [facility] Comment on above: Result Comment: For patients on eltrombopag therapy, use of Dimension Eunice TBIL is not recommended. Performed By: #### M 100.2200 #### [facility] [address] [place], [address] BUN/CRE 19.1 RATIO Normal 10-20 [facility] Comment on above: Performed By: #### M 100.2200 #### [facility] [address] [place], [address] CA,Total 9.5 mg/dL Normal 8.5-10.1 [facility] Comment on above: Performed By: #### M 100.2200 #### [facility] [address] [place], [address] Chloride [Moles/Vol] 100 mmol/L Normal 98-107 [facility] Comment on above: Performed By: #### M 100.2200 #### [facility] [address] [place], [address] CO2 [Moles/Vol] 29.0 mmol/L Normal 21.0-32.0 [facility] Comment on above: Performed By: #### M 100.2200 #### [facility] [address] [place], [address] Creatinine [Mass/Vol] 0.73 mg/dL Normal 0.55-1.02 [facility] Comment on above: Result Comment: The validity of the calculated GFR GFRAA in patients over 70 years has not been determined. Clinical correlation is essential. Performed By: #### M 100.2200 #### [facility] [address] [place], [address] ECRCL 110.63 ml/min Normal [facility] Comment on above: Performed By: #### M 100.2200 #### [facility] [address] [place], [address] EST GFR - AA 106 mL/min Normal >60 [facility] Comment on above: Result Comment: Afri can Estonian GFR Calc Performed By: #### M 100.2200 #### [facility] [address] [place], [address] GAP 7 Normal 5-15 [facility] Comment on above: Performed By: #### M 100.2200 #### [facility] [address] [place], [address] GFR/1.73 sq M.predicted among non-blacks MDRD (S/P/Bld) [Vol rate/Area] 88 mL/min/{1.73_m2} Normal >60 [facility] Comment on above: Result Comment: Non- GFR Calc Performed By: #### M 100.2200 #### [facility] Laboratory [address] [place], [address] Globulin (S) [Mass/Vol] 5.4 g/dL High 2.2-4.2 [facility] Comment on above: Performed By: #### M 100.2200 #### [facility] [address] [place], [address] Glucose [Mass/Vol] 119 mg/dL High 74-106 [facility] Comment on above: Result Comment: Fast ing Glucose result from 100 to 125 mg/dL suggests IMPAIRED HOMEOSTASIS per A.D.A. criteria. Performed By: #### M 100.2200 #### [facility] [address] [place], [address] Potassium [Moles/Vol] 4.4 mmol/L Normal 3.5-5.1 [facility] Comment on above: Performed By: #### M 100.2200 #### [facility] [address] [place], [address] Sodium [Moles/Vol] 136 mmol/L Normal 136-145 [facility] Comment on above: Performed By: #### M 100.2200 #### [facility] [address] [place], [address] T PROT 8.4 g/dL High 6.4-8.2 [facility] Comment on above: Performed By: #### M 100.2200 #### [facility] [address] [place], [address] Urea nitrogen [Mass/Vol] 14 mg/dL Normal 7-18 [facility] Comment on above: Performed By: #### M 100.2200 #### [facility] [address] [place], [address] Emergency Department Summary on 01-08-2025 Emergency Department Summary [facility] Medical Records Department [address] [place] [address] Emergency Department Summary 01/08/25 MR#: [id number] Acct: [id number] Name: UZMA MCDONALD Rep #: [id number] : 1970 54 From: Nabil Santos RN DIGESTIVE-C PCP: Dr. David Fink MD Status:DEP ER [...] belly pain and is here for evaluation. [facility] Medical History Anemia due to chronic blood [...] Neuro: Cr (more content not included)... Normal [facility] Eosinophil percentageOrdered By: ED PROVIDER on 01-08-2025 Eosinophils/100 WBC (Bld) 1.8 % 0-5 [facility] Epithelial cells.squamous LM Ql (Urine sed)Ordered By: Isaiah Villanueva on 01-08-2025 Epithelial cells.squamous LM.HPF (Urine sed) [#/Area] 0 /[HPF] 5-10 [facility] Erythrocyte distribution wid th ratioOrdered By: ED PROVIDER on 01-08-2025 Erythrocyte distribution width (RBC) [Ratio] 13.2 % 11.6-14.6 [facility] Erythrocyte distribution wid th standard deviationOrdered By: ED PROVIDER on 01-08-2025 Erythrocyte distribution width (RBC) [Entitic vol] 42.5 fL 35.1-43.9 [facility] Erythrocyte distribution width (RBC) [Ratio] 42.5 fl 35.1-43.9 [facility] Estimated glomerular filtrat ion rate (GFR) AmericanOrdered By: ED PROVIDER on 01-08-2025 Estimated GFR (MDRD) Amer 106 mL/min >60 [facility] Comment on above: GFR Calc Estimation of creatinine tapan aranceOrdered By: ED PROVIDER on 01-08-2025 Estimated Creatinine Clearance Calc 110.63 ml/min [facility] Glomerular filtration rate ( GFR) estimationOrdered By: ED PROVIDER on 01-08-2025 Estimated GFR (MDRD) Non-Af Amer 88 mL/min >60 [facility] Comment on above: Non- GFR Calc GFR/1.73 sq M.predicted among non-blacks MDRD (S/P/Bld) [Vol rate/Area] 88 mL/min/{1.73_m2} >60 [facility] Comment on above: Non- GFR Calc Glucose Ql (U)Ordered By: Ramón Villanueva on 01-08-2025 Urine Glucose (UA) Normal mg/dl Normal [facility] Glucose measurementOrdered B y: ED PROVIDER on 01-08-2025 Glucose [Mass/Vol] 119 mg/dL High 74-106 [facility] Comment on above: Fasting Glucose resu lt from 100 to 125 mg/dL suggests IMPAIRED HOMEOSTASIS per A.D.A. criteria. Hematocrit Auto (Bld) [Volum e fraction]Ordered By: ED PROVIDER on 01-08-2025 Hematocrit (Bld) [Volume fraction] 43.8 % 37-47 [facility] Hemoglobin measurementOrdere d By: ED PROVIDER on 01-08-2025 Hemoglobin (Bld) [Mass/Vol] 14.7 g/dL 12.0-15.0 [facility] Immature granulocytes/100 WB C Auto (Bld)Ordered By: ED PROVIDER on 01-08-2025 Immature granulocytes/100 WBC (Bld) 0.300 % 0.0-0.9 [facility] Comment on above: IG% - Immature Granu locytes (promyelocytes, myelocytes and metamyelocytes) > 1% indicates that a LEFT SHIFT is Present. Ketones Test strip Ql (U)Ord ered By: Isaiah Villanueva on 01-08-2025 Ketones Ql (U) Negative Negative [facility] Laboratory - Chemistry and C hemistry - challengeOrdered By: ED PROVIDER on 01-08-2025 AST [Catalytic activity/Vol] 16 U/L 15-37 [facility] Lipaseon 01-08-2025 Lipase [Catalytic activity/Vol] 18 U/L Low 73-393 [facility] Comment on above: Performed By: #### L 400.0001, M100.2200 #### [facility] [address] [place], [address] Lipase measurementOrdered By : ED PROVIDER on 01-08-2025 Lipase [Catalytic activity/Vol] 18 U/L Low 73-393 [facility] Lymphocytes Auto (Unsp spec) [#/Vol]Ordered By: ED PROVIDER on 01-08-2025 Lymphocytes (Bld) [#/Vol] 1.90 10*3/uL 0.83-4.51 [facility] Lymphocytes/100 WBC Auto (Un sp spec)Ordered By: ED PROVIDER on 01-08-2025 Lymphocytes/100 WBC (Bld) 20.3 % 19-41 [facility] MCV (mean corpuscular volume ) determinationOrdered By: ED PROVIDER on 01-08-2025 MCV (RBC) [Entitic vol] 88.7 fL 81-99 [facility] Mean corpuscular hemoglobin (MCH) determinationOrdered By: ED PROVIDER on 01-08-2025 MCH (RBC) [Entitic mass] 29.8 pg 27.0-32.0 [facility] Mean corpuscular hemoglobin concentration (MCHC) determinationOrdered By: ED PROVIDER on 01-08-2025 MCHC (RBC) [Mass/Vol] 33.6 g/dL 32-36 [facility] Mean platelet volume determi nationOrdered By: ED PROVIDER on 01-08-2025 Platelet mean volume (Bld) [Entitic vol] 9.7 fL 6.2-12.0 [facility] Microscopic analysis of urin e for red blood cells (RBC)Ordered By: Isaiah Villanueva on 01-08-2025 Microscopic analysis of urine for red blood cells (RBC) 0-5 SEEN /hpf 0-5 [facility] Urine RBC 0-5 SEEN /hpf 0-5 [facility] Monocyte percentageOrdered B y: ED PROVIDER on 01-08-2025 Monocytes/100 WBC (Bld) 6.3 % 0-10 [facility] Mucus LM Ql (Urine sed)Order ed By: Isaiah Villanueva on 01-08-2025 Mucus Ql (Urine sed) 1+ /hpf [facility] Neutrophil percentageOrdered By: ED PROVIDER on 01-08-2025 Neutrophils/100 WBC (Bld) 70.7 % High 47-70 [facility] Nitrite Test strip Ql (U)Ord ered By: Isaiah Villanueva on 01-08-2025 Nitrite Ql (U) Negative Negative [facility] Nucleated red blood cell per centageOrdered By: ED PROVIDER on 01-08-2025 Nucleated RBC/100 WBC (Bld) [Ratio] 0 % 0-5 [facility] Platelet countOrdered By: ED PROVIDER on 01-08-2025 Platelets (Bld) [#/Vol] 237 10*3/uL 150-450 [facility] Potassium measurementOrdered By: ED PROVIDER on 01-08-2025 Potassium [Moles/Vol] 4.4 mmol/L 3.5-5.1 [facility] Protein Test strip Ql (U)Ord ered By: Isaiah Villanueva on 01-08-2025 Protein Ql (U) 30 mg/dl High Negative [facility] RBC Auto (Bld) [#/Vol]Ordere d By: ED PROVIDER on 01-08-2025 RBC (Bld) [#/Vol] 4.94 10*6/uL 4.2-5.4 [facility] Serum anion gap measurementO rdered By: ED PROVIDER on 01-08-2025 Anion gap [Moles/Vol] 7 mmol/L 5-15 [facility] Serum globulin measurementOr dered By: ED PROVIDER on 01-08-2025 Globulin (S) [Mass/Vol] 5.4 g/dL High 2.2-4.2 [facility] Serum or plasma alanine del rio otransferase (ALT) measurementOrdered By: ED PROVIDER on 01-08-2025 ALT [Catalytic activity/Vol] 23 U/L 13-56 [facility] Serum or plasma albumin cass urement (mass/volume)Ordered By: ED PROVIDER on 01-08-2025 Albumin [Mass/Vol] 3.0 g/dL Low 3.2-5.0 [facility] Serum or plasma alkaline tre sphatase measurementOrdered By: ED PROVIDER on 01-08-2025 ALP [Catalytic activity/Vol] 98 U/L 45-117 [facility] Serum or plasma calcium cass urement (mass/volume)Ordered By: ED PROVIDER on 01-08-2025 Calcium [Mass/Vol] 9.5 mg/dL 8.5-10.1 [facility] Serum or plasma creatinine m easurement (mass/volume)Ordered By: ED PROVIDER on 01-08-2025 Creatinine [Mass/Vol] 0.73 mg/dL 0.55-1.02 [facility] Comment on above: The validity of the calculated GFR & GFRAA in patients over 70 years has not been determined. Clinical correlation is essential. Serum or plasma urea nitroge n measurement (mass/volume)Ordered By: ED PROVIDER on 01-08-2025 Urea nitrogen [Mass/Vol] 14 mg/dL 7-18 [facility] Sodium levelOrdered By: ED P VINITA on 01-08-2025 Sodium [Moles/Vol] 136 mmol/L 136-145 [facility] Squamous epithelial cells de tection in urine sediment by light microscopyOrdered By: Isaiah Villanueva on 01-08-2025 Epithelial cells.squamous LM Ql (Urine sed) 0-5 SEEN /hpf 5-10 [facility] Total proteinOrdered By: ED PROVIDER on 01-08-2025 Protein [Mass/Vol] 8.4 g/dL High 6.4-8.2 [facility] Urinalysis, Completeon 01-08 BACTERIA 2+ /hpf Normal None Seen [facility] Comment on above: Order Comment: COLOR OF URINE MAY AFFECT DIPSTICK RESULTS.CLEAN CATCH Performed By: #### M 100.2200 #### [facility] [address] [place], [place], [id number] EPI,SQUAMOUS 0-5 SEEN Normal 5-10 [facility] Comment on above: Order Comment: COLOR OF URINE MAY AFFECT DIPSTICK RESULTS.CLEAN CATCH Performed By: #### M 100.2200 #### [facility] [address] [place], [address] Mucus Ql (Urine sed) 1+ /hpf Normal [facility] Comment on above: Order Comment: COLOR OF URINE MAY AFFECT DIPSTICK RESULTS.CLEAN CATCH Performed By: #### M 100.2200 #### [facility] [address] [place], [address] RBC 0-5 SEEN Normal 0-5 [facility] Comment on above: Order Comment: COLOR OF URINE MAY AFFECT DIPSTICK RESULTS.CLEAN CATCH Performed By: #### M 100.2200 #### [facility] [address] [place], [address] WBC 5-10 SEEN Normal 0-5 [facility] Comment on above: Order Comment: COLOR OF URINE MAY AFFECT DIPSTICK RESULTS.CLEAN CATCH Performed By: #### M 100.2200 #### [facility] [address] [place], [address] Urine blood detectionOrdered By: Isaiah Villanueva on 01-08-2025 Urine Occult Blood 50 /ul High Negative [facility] Urine clarityOrdered By: Misty Villanueva on 01-08-2025 Clarity (U) Sl. Cloudy Clear [facility] Urine color determinationOrd ered By: Isaiah Villanueva on 01-08-2025 Color (U) Mirna Yellow [facility] Urine cultureOrdered By: Rose Santos on 01-08-2025 Bacteria identified Cx Nom (U) Positive Abnormal [facility] Urine glucose detectionOrder ed By: Isaiah Villanueva on 01-08-2025 Glucose Ql (U) Normal mg/dl Normal [facility] Urine leukocyte esterase det ection by dipstickOrdered By: Isaiah Villanueva on 01-08-2025 Leukocyte esterase Test strip Ql (U) 100 /ul High Negative [facility] Urine pHOrdered By: Isaiah ventura on 01-08-2025 pH (U) 6.0 [pH] 5.0 - 8.0 [facility] Urine sediment bacteria coun t by microscopy (number/high power field)Ordered By: Isaiah Vlilanueva on 01-08-2025 Bacteria LM.HPF (Urine sed) [#/Area] 2 /[HPF] None Seen [facility] Urine specific gravity measu rementOrdered By: Isaiah Villanueva on 01-08-2025 Specific gravity (U) [Rel density] 1.015 1.002-1.030 [facility] Urine urobilinogen measureme ntOrdered By: Isaiah Villanueva on 01-08-2025 Urobilinogen Ql (U) 4 mg/dl High Normal [facility] Urobilinogen Ql (U)Ordered B y: Isaiah Villanueva on 01-08-2025 Urobilinogen (U) [Mass/Vol] 4 mg/dL High Normal [facility] White blood cell (WBC) count Ordered By: ED PROVIDER on 01-08-2025 WBC (Bld) [#/Vol] 9.4 10*3/uL 4.4-11.0 [facility] White blood cell countOrdere d By: Isaiah Villanueva on 01-08-2025 Urine WBC 5-10 SEEN /hpf 0-5 [facility] White blood cell count 5-10 SEEN /hpf 0-5 [facility] Bacteria Ur Culton Bacteria identified Cx Nom (U) ORGANISM ID: 1 10,000 -<50,000 CFU/ml Normal urogenital marianela Normal [facility] Comment on above: Performed By: #### 6 30-4 ####[facility] [id number] [address] [facility] CNOVon 12-24-2024 CNOV Office Visit (UCWSTR ) -- UZMA MCDONALD ([id number]) 1970 F Date Time Provider Department 2/9/25 1:45 PM ISAÍAS RIBEIRO UCWSTR During your visit today, we recorded the following information about you: Temperature Pulse Respiration Blood pressure 97.8 degrees 80/minute 18/minute 126/68 Weight 110.6 kg Isaías Ribeiro APRN.CNP 12/24/2024 2:08 PM Signed Subjective HPI Nontoxic-appearing [...] lens implant PAST SURGICAL HISTORY OF 03/31/2021 Synthox stent REBEL CORONARY PLAT CHROMIUM BARE METAL STENT SYS [id number], 144 CM 06/26/2014 REMOVAL GALLBLADDER 2013 SUPRACERVICAL [...] or oc (more content not included)... Normal [facility] UA DIP, URINE (POC)on 2024 BILIRUBIN UA (POCT) Negative Negative [facility] CLARITY UA (POCT) Slightly Cloudy Cl [facility] COLOR UA (POCT) Dark yellow [facility] GLUCOSE UA (POCT) Negative Negative mg/dL [facility] Hemoglobin Ql (U) Moderate Abnormal Negative [facility] Interpretation and review of laboratory results Abnormal [facility] KETONE UA (POCT) Negative Negative mg/dL [facility] LEUKOCYTES UA (POCT) Trace Abnormal Negative [facility] NITRITE UA (POCT) Negative Negative [facility] PH UA (POCT) 6.5 4.5 - 8.0 [facility] Protein Ql (U) 100 mg/dL Abnormal Negative [facility] SPECIFIC GRAVITY UA (POCT) 1.025 1.005 - 1.030 [facility] UROBILINOGEN UA (POCT) 1 Judith l E.U./dL [facility] Location:[facility], [address] [place] [address], [place], [place], [id number] [place] [address] [facility] 10-03-2024 RICHY Telephone (DORIS) -- UZMA MCDONALD ([id number]) 1970 F Date Time Provider Department 10/03/24 SUSY SMITH During your visit today, we recorded the following information about you: Susy Smith APRN.UMBRELLA SUPERVISOR 10/03/2024 8:16 AM Signed Please let patient know her mammogram is negative. Patient should continue with annual screenings. Ann Zacarias, RAMONE 10/03/2024 9:49 AM Signed Called and left [...] Date Reviewed: 08/02/2024 Reviewed by: Isaías Ribeiro APRN.UMBRELLA SUPERVISOR - Fully Assessed Reason for Visit: Results [...] 30-34.9 [E66.811] 06/29/2022 Coronary artery disease of [place] heart with st*07/27/2022 Hyperlipidemia, mixed [E78.2] 07/27/2022 Hyperglycemia [R73.9] 07/28/2022 Dizziness [R42] 12/10/2022 Heart murmur [R01.1] 05/27/2022 History of anemia [Z86.2] 01/26/2023 Menorrhagia with irregular cycle [N92.1] 11/30/2022 Encounter Status:Closed by ZOEY PINEDA on 10/09/24 Normal [facility] BRITTANY SCREENING W TOMOon 09-29 BRITTANY SCREENING W ALFONSO * * *Final Report* * * DATE OF EXAM: Sep 29 2024 1:34PM WRW [id number] - BRITTANY SCREENING W ALFONSO / PROCEDURE REASON: Encounter for screening mammogram for breast cancer * * * * Physician Interpretation * * * * RESULT: [address] [address] [place] [address] HISTORY: Patient is 54 years old and [...] Roni Kang M.D. Electronically signed on: 10/03/2024 [employer] Operator: PAU Transcribe Date/Time: Sep 29 2024 1:22P Dictated by: RONI KANG MD This examination was interpreted and the report reviewed and electronically signed by: RONI KANG MD on Oct 03 2024 1:30AM EST [id number] [facility] CNPN Telephone (RDXWS) -- UZMA MCDONALD ([id number]) 1970 F Date Time Provider Department 09/25/24 DAVID FINK RDXWS During your visit today, we recorded the following information about you: Elizabeth Elizondo Mammo Tech 09/25/2024 1:42 PM Signed Could we have a mammogram screening order STAT! Pt schedule today at 1450. Thanks a million Susy Smith APRN.UMBRELLA SUPERVISOR 09/25/2024 2:23 PM Signed Ordered Allergies As of Date: 09/25/2024 (No Known Allergies) Date Reviewed: 08/02/2024 Reviewed by: Isaías Ribeiro APRN.UMBRELLA SUPERVISOR - Fully Assessed Reason for Visit: Orders [681] Primary Visit Diagnosis:Encounter for screening mammogram for breast cancer [Z12.31] Order(s):BRITTANY SCREENING W ALFONSO [[id number]] Order #: [id number] FUTURE Prescriptions as of 09/25/2024 - albuterol [...] 30-34.9 [E66.811] 06/29/2022 Coronary artery disease of [place] heart with st*07/27/2022 Hyperlipidemia, mixed [E78.2] 07/27/2022 Hyperglycemia [R73.9] 07/28/2022 Dizziness [R42] 12/10/2022 Heart murmur [R01.1] 05/27/2022 History of anemia [Z86.2] 01/26/2023 Menorrhagia with irregular cycle [N92.1] 11/30/2022 Encounter Status:Closed by [place] on 09/25/24 [facility] CNOVon 08-02-2024 CNOV Office Visit (UCWSTR ) -- UZMA MCDONALD ([id number]) 1970 F Date Time Provider Department 08/02/24 6:45 PM ISAÍAS RIBEIRO [facility] During your visit today, we recorded the following information about you: Temperature Pulse Respiration Blood pressure 98 degrees 93/minute 20/minute 119/76 Weight 111.5 kg Isaías Ribeiro, TOBACCO SIEVE OPERATOR.UMBRELLA SUPERVISOR 08/02/2024 7:54 PM Signed Subjective HPI Nontoxic-appearing [...] CORONARY PLAT CHROMIUM BARE METAL STENT SYS [id number], 144 CM 06/26/2014 REMOVAL GALLBLADDER 2013 SUPRACERVICAL [...] motion. Lymphad (more content not included)... [facility] Telephone (UCWSTR) -- UZMA MCDONALD ([id number]) 1970 F Date Time Provider Department 08/02/24 ISAÍAS RIBEIRO [facility] During your visit today, we recorded the following information about you: Isaías Ribeiro APRN.JAIRO 08/02/2024 7:52 PM Signed Please inform patient that chest x-ray is negative. Continue plan of care as discussed during visit. Hazel Marshall LPN 08/02/2024 7:58 PM Signed Patient notified.Hazel Marshall LPN Allergies As of Date: 08/02/2024 (No Known Allergies) Date Reviewed: 08/02/2024 Reviewed by: Isaías Ribeiro APRN.JIARO - Fully Assessed Reason for Visit: Results [...] 30-34.9 [E66.9] 06/29/2022 Coronary artery disease of [place] heart with st*07/27/2022 Hyperlipidemia, mixed [E78.2] 07/27/2022 Hyperglycemia [R73.9] 07/28/2022 Dizziness [R42] 12/10/2022 Heart murmur [R01.1] 05/27/2022 History of anemia [Z86.2] 01/26/2023 Menorrhagia with irregular cycle [N92.1] 11/30/2022 Encounter Status:Closed by HAZEL MARSHALL on 08/02/24 Normal [facility] XR CHEST 2V FRONTAL/LATon XR CHEST [...] tissues: Unremarkable. IMPRESSION: No acute radiographic abnormality. [employer] Operator: [facility] Transcribe Date/Time: Aug 02 2024 7:48P Dictated by : MARIA ELENA JONES MD This examination was interpreted and the report reviewed and electronically signed by: MARIA ELENA JONES MD on Aug 02 2024 7:48PM EST [id number] Normal [facility] XR Chest PA and Lateralon IMPRESSION: No acute radiographic abnormality. [employer] Operator: PSCB Transcribe Date/Time: Aug 02 2024 7:48P [...] soft tissues: Unremarkable. DIVISION OF RADIOLOGY Provider, Shannan Leora Chew - 08/02/2024 * * *Final Report* [...] Unremarkable. IMPRESSION IMPRESSION: No acute radiographic abnormality. [employer] Operator: LING Transcribe Date/Time: Aug 02 2024 7:48P Dictated by : MARIA ELENA JONES MD This examination was interpreted and the report reviewed and electronically signed by: MARIA ELENA JONES MD on Aug 02 2024 7:48PM [facility] Radiology Study observation (narrative) [facility] XR Chest PA and LateralOrder ed By: Ccf Provider on 08-02-2024 [facility] CNOVon 04-18-2024 CNOV Office Visit (UCWSTR ) -- UZMA MCDONALD ([id number]) 1970 F Date Time Provider Department 04/18/24 12:15 PM JUANA LINTON [facility] During your visit today, we recorded the following information about you: Temperature Pulse Respiration Blood pressure 98.5 degrees 98/minute 16/minute 118/68 Weight 112.4 kg Juana Linton APRN.UMBRELLA SUPERVISOR 04/18/2024 1:22 PM Signed This note was [...] history is provided by the patient. No computer language coder was used. URI She complains of cough. [...] CORONARY PLAT CHROMIUM BARE METAL STENT SYS [id number], 144 CM 06/26/2014 REMOVAL GALLBLADDER 2013 SUPRACERVICAL [...] for enviro (more content not included)... Normal [facility] CNOVon 03-23-2024 CNOV Office Visit (UCWSTR ) -- UZMA MCDONALD ([id number]) 1970 F Date Time Provider Department 03/23/24 10:30 AM CINTHYA VAUGHAN [facility] During your visit today, we recorded the following information about you: Temperature Pulse Respiration Blood pressure 97.6 degrees 109/minute 16/minute 138/64 Weight 114.3 kg Cinthya Vaughan, S[facility]HAR[facility] 03/23/2024 11:01 AM Addendum ASSESSMENT/PLAN: 1. Acute [...] Discussed expected course of illness Cinthya Vaughan APRN.UMBRELLA SUPERVISOR ACUTE BRONCHITIS: You have acute bronchitis. This [...] 3 days of proper treatment. Cinthya Vaughan APRN.UMBRELLA SUPERVISOR 03/23/2024 11:07 AM Signed Subjective Cough Associated [...] CORONARY PLAT CHROMIUM BARE METAL STENT SYS [id number], 144 CM 06/26/2014 REMOVAL GALLBLADDER 2013 SUPRACERVICAL [...] 4 day (more content not included)... Normal [facility] BRITTANY SCREENINGon 09-17-2023 [facility] XR Hand - right PA and Later al and Obliqueon 01-28-2023 IMPRESSION: Negative 3 views of the right hand. [employer] Operator: PSCB Transcribe Date/Time: Jan 28 2023 8:19A Dictated by : BAILEE SYKES MD This examination was interpreted and the report reviewed and electronically signed by: BAILEE SYKES MD on Jan 28 2023 8:22AM [facility] DIVISION OF RADIOLOGY * * *Final Report* [...] tissue swelling. DIVISION OF RADIOLOGY Provider, Wilman CisseR [facility] - 01/28/2023 * * *Final Report* * [...] Negative 3 views of the right hand. [employer] Operator: LING Transcribe Date/Time: Jan 28 2023 8:19A Dictated by : BAILEE SYKES MD This examination was interpreted and the report reviewed and electronically signed by: BAILEE SYKES MD on Jan 28 2023 8:22AM EST [facility] XR Hand - right PA and Later al and ObliqueOrdered By: Ccf Provider on 01-28-2023 [facility] No Panel Informationon 01-26 Radiology Study observation (narrative) [facility] XR ELBOW GENERAL 2V AP/LAT R IGHTon 01-26-2023 [facility] XR Elbow - right AP and Late ralon 01-26-2023 IMPRESSION: Mild sof t tissue calcification. Please clinically correlate. [employer] Operator: LING Transcribe Date/Time: Jan 26 2023 4:49P [...] lateral epicondyle. DIVISION OF RADIOLOGY Provider, [facility] - 01/26/2023 * * *Final Report* [...] Mild soft tissue calcification. Please clinically correlate. [employer] Operator: PSCB Transcribe Date/Time: Jan 26 2023 4:49P Dictated by : BAILEE SYKES MD This examination was interpreted and the report reviewed and electronically signed by: BAILEE SYKES MD on Jan 26 2023 4:51PM [facility] Basophil percentageOrdered B y: Dr. Michel on 12-08-2022 Bilirubin [Mass/Vol] 0.40 mg/dL 0.20-1.00 [facility] Comment on above: For patients on eltr ombopag therapy, use of Dimension Eunice TBIL is not recommended. Cholesterol [Mass/Vol] 161 mg/dL <200 [facility] Comment on above: <200 mg/dL Desirable 200-240 mg/dL Borderline >240 mg/dL High Risk Protein [Mass/Vol] 7.7 g/dL 6.4-8.2 [facility] Triglyceride [Mass/Vol] 182 mg/dL <199 [facility] Comment on above: The drugs N-Acetylcy steine and Metamizole may falsely depress this assay.Serum Triglycerides Reference Interval Normal <150 mg/dL Borderline high 150 - 199 mg/dL High 200 - 499 mg/dL Very High > or = 500 mg/dL Direct bilirubinOrdered By: Dr. Michel on 12-08-2022 Bilirubin.direct [Mass/Vol] 0.11 mg/dL 0.00-0.30 [facility] Laboratory - Chemistry and C hemistry - challengeOrdered By: Dr. Michel on 12-08-2022 ALP [Catalytic activity/Vol] 114 U/L 45-117 [facility] ALT [Catalytic activity/Vol] 46 U/L 13-56 [facility] Globulin (S) [Mass/Vol] 4.1 g/dL 2.2-4.2 [facility] Serum or plasma albumin cass urement (mass/volume)Ordered By: Dr. Michel on 12-08-2022 Albumin [Mass/Vol] 3.6 g/dL 3.2-5.0 [facility] Serum or plasma cholesterol in HDL measurement (mass/volume)Ordered By: Dr. Michel on 12-08-2022 Cholesterol in HDL [Mass/Vol] 37 mg/dL >40 [facility] Comment on above: The drugs N-Acetylcy steine and Metamizole may falsely depress this assay. Reference Range HDL <40 mg/dL Low HDL Cholesterol HDL >or= 60 mg/dL High HDL Cholesterol Serum or plasma cholesterol in VLDL measurement (mass/volume)Ordered By: Dr. Michel on 12-08-2022 Cholesterol in VLDL [Mass/Vol] 36 mg/dL 5-40 [facility] Serum or plasma low density lipoprotein (LDL) cholesterol measurement (mass/volume)Ordered By: Dr. Michel on 12-08-2022 Cholesterol in LDL [Mass/Vol] 88 mg/dL 0-130 [facility] Thin prep Papanicolaou smear with manual screeningOrdered By: Dr. Michel on 12-08-2022 Thin prep Papanicolaou smear with manual screening 23 U/L 15-37 [facility] Basophil percentageOrdered B y: Cristin Pettit on 11-30-2022 Chloride [Moles/Vol] 105 mmol/L 98-107 [facility] Glucose [Mass/Vol] 171 mg/dL 74-106 [facility] Comment on above: Fasting Glucose resu lt greater than or equal to 126 mg/dL suggests DIABETES MELLITUS per A.D.A. criteria. Potassium [Moles/Vol] 3.8 mmol/L 3.5-5.1 [facility] Sodium [Moles/Vol] 140 mmol/L 136-145 [facility] WBC (Bld) [#/Vol] 6.3 10*3/uL 4.4-11.0 [facility] Blood erythrocytes count (nu mber/volume)Ordered By: Cristin Pettit on 11-30-2022 RBC (Bld) [#/Vol] 4.88 10*6/uL 4.2-5.4 [facility] Blood hemoglobin measurement (mass/volume)Ordered By: Cristin Pettit on 11-30-2022 Hemoglobin (Bld) [Mass/Vol] 15.0 g/dL 12.0-15.0 [facility] Blood platelet mean volumeOr dered By: Cristin Pettit on 11-30-2022 Platelet mean volume (Bld) [Entitic vol] 9.6 fL 6.2-12.0 [facility] Determination of erythrocyte mean corpuscular volume (MCV)Ordered By: Cristin Pettit on 11-30-2022 MCV (RBC) [Entitic vol] 91.6 fL 81-99 [facility] Hematocrit Auto (Bld) [Volum e fraction]Ordered By: Cristin Pettit on 11-30-2022 Hematocrit (Bld) [Volume fraction] 44.7 % 37-47 [facility] Laboratory - Chemistry and C hemistry - challengeOrdered By: Critsin Pettit on 11-30-2022 CO2 [Moles/Vol] 29.0 mmol/L 21.0-32.0 [facility] Magnesium [Mass/Vol] 2.1 mg/dL 1.6-2.6 [facility] Urea nitrogen/Creatinine [Mass ratio] 13.7 mg/mg 10-20 [facility] Laboratory - Hematology and Cell countsOrdered By: Cristin Pettit on 11-30-2022 Erythrocyte distribution width (RBC) [Entitic vol] 45.7 fL 35.1-43.9 [facility] Erythrocyte distribution width (RBC) [Ratio] 13.5 % 11.6-14.6 [facility] MCH (RBC) [Entitic mass] 30.7 pg 27.0-32.0 [facility] MCHC Auto (RBC) [Mass/Vol]Or dered By: Cristin Pettit on 11-30-2022 MCHC (RBC) [Mass/Vol] 33.6 g/dL 32-36 [facility] No Panel InformationOrdered By: Cristin Pettit on 11-30-2022 Estimated GFR (MDRD) Amer 107 mL/min >60 [facility] Comment on above: GFR Calc Estimated GFR (MDRD) Non-Af Amer 89 mL/min >60 [facility] Comment on above: Non- GFR Calc Thyroid Stimulating Hormone (TSH) 2.02 uIU/mL 0.358-3.74 [facility] Platelets bldOrdered By: Prieto Pettit on 11-30-2022 Platelets (Bld) [#/Vol] 215 10*3/uL 150-450 [facility] Serum or plasma calcium cass urement (mass/volume)Ordered By: Cristin Pettit on 11-30-2022 Calcium [Mass/Vol] 8.9 mg/dL 8.5-10.1 [facility] Serum or plasma creatinine m easurement (mass/volume)Ordered By: Cristin Pettit on 11-30-2022 Creatinine [Mass/Vol] 0.73 mg/dL 0.55-1.02 [facility] Comment on above: The validity of the calculated GFR & GFRAA in patients over 70 years has not been determined. Clinical correlation is essential. Serum or plasma urea nitroge n measurement (mass/volume)Ordered By: Cristin Pettit on 11-30-2022 Urea nitrogen [Mass/Vol] 10 mg/dL 7-18 [facility] Thin prep Papanicolaou smear with manual screeningOrdered By: Cristin Pettit on 11-30-2022 Thin prep Papanicolaou smear with manual screening 6 5-15 [facility] BRITTANY SCREENINGon 07-30-2022 [facility] Basophil percentageon 2021 WBC (Bld) [#/Vol] 7.1 10*3/uL 4.4-11.0 [facility] Work Phone: Blood erythrocytes count (nu mber/volume)on 05-29-2022 RBC (Bld) [#/Vol] 4.36 10*6/uL 4.2-5.4 [facility] Work Phone: Blood hemoglobin measurement (mass/volume)on 05-29-2022 Hemoglobin (Bld) [Mass/Vol] 10.9 g/dL 12.0-15.0 [facility] Work Phone: Blood platelet mean volumeon 05-29-2022 Platelet mean volume (Bld) [Entitic vol] 10.1 fL 6.2-12.0 [facility] Work Phone: Determination of erythrocyte mean corpuscular volume (MCV)on 05-29-2022 MCV (RBC) [Entitic vol] 81.0 fL 81-99 [facility] Work Phone: Glucose Glucometer (BldC) [M ass/Vol]on 05-29-2022 Glucose [Mass/Vol] 167 mg/dL 74-106 [facility] Work Phone: Comment on above: MANAGEMENT OF PATIEN T CARE PER NURSING PROTOCOL Hematocrit Auto (Bld) [Volum e fraction]on 05-29-2022 Hematocrit (Bld) [Volume fraction] 35.3 % 37-47 [facility] Work Phone: Laboratory - Hematology and Cell countson 05-29-2022 Erythrocyte distribution width (RBC) [Entitic vol] 52.6 fL 35.1-43.9 [facility] Work Phone: Erythrocyte distribution width (RBC) [Ratio] 17.8 % 11.6-14.6 [facility] Work Phone: MCH (RBC) [Entitic mass] 25.0 pg 27.0-32.0 [facility] Work Phone: MCHC Auto (RBC) [Mass/Vol]on 05-29-2022 MCHC (RBC) [Mass/Vol] 30.9 g/dL 32-36 [facility] Work Phone: Platelets bldon 05-29-2022 Platelets (Bld) [#/Vol] 176 10*3/uL 150-450 [facility] Work Phone: Basophil percentageon 2021 Chloride [Moles/Vol] 107 mmol/L 98-107 [facility] Work Phone: [phone] Glucose [Mass/Vol] 97 mg/dL 74-106 [facility] Work Phone: [phone] Potassium [Moles/Vol] 4.1 mmol/L 3.5-5.1 [facility] Work Phone: Sodium [Moles/Vol] 139 mmol/L 136-145 [facility] Work Phone: INR in Blood by Coagulation assayon 05-25-2022 INR Coag (Bld) [Relative time] 1.1 {INR} [facility] Work Phone: [phone] Laboratory - Chemistry and C hemistry - challengeon 05-25-2022 CO2 [Moles/Vol] 25.0 mmol/L 21.0-32.0 [facility] Work Phone: Urea nitrogen/Creatinine [Mass ratio] 14.7 mg/mg 10-20 [facility] Work Phone: Magnesium [Mass/Vol] 2.1 mg/dL 1.6-2.6 [facility] Work Phone: Laboratory - Coagulationon 0 05-25-2022 aPTT Coag (Bld) [Time] 27.4 s 24.1-36.2 [facility] Work Phone: PT Coag (PPP) [Time] 13.8 s 11.7-14.9 [facility] Work Phone: No Panel Informationon 05-25 Estimated GFR (MDRD) Amer 117 mL/min >60 [facility] Work Phone: Comment on above: GFR Calc Estimated GFR (MDRD) Non-Af Amer 97 mL/min >60 [facility] Work Phone: Comment on above: Non- GFR Calc Serum or plasma calcium cass urement (mass/volume)on 05-25-2022 Calcium [Mass/Vol] 8.7 mg/dL 8.5-10.1 [facility] Work Phone: Serum or plasma creatinine m easurement (mass/volume)on 05-25-2022 Creatinine [Mass/Vol] 0.68 mg/dL 0.55-1.02 [facility] Work Phone: Comment on above: The validity of the calculated GFR & GFRAA in patients over 70 years has not been determined. Clinical correlation is essential. Serum or plasma urea nitroge n measurement (mass/volume)on 05-25-2022 Urea nitrogen [Mass/Vol] 10 mg/dL 7-18 [facility] Work Phone: Thin prep Papanicolaou smear with manual screeningon 05-25-2022 Thin prep Papanicolaou smear with manual screening 7 5-15 [facility] Work Phone: XR CHEST 2V FRONTAL/LATon [facility] XR Chest PA and Lateralon IMPRESSION: No acute radiographic abnormality. [employer] Operator: PSCB Transcribe Date/Time: Apr 23 2022 11:16A [...] Unremarkable. [id number]_ USE_DIVISIO N OF RADIOLOGY Provider, [facility] - 04/23/2022 * * *Final Report* [...] Unremarkable. IMPRESSION IMPRESSION: No acute radiographic abnormality. [employer] Operator: LING Transcribe Date/Time: Apr 23 2022 11:16A Dictated by : MARCELLA TORRES MD This examination was interpreted and the report reviewed and electronically signed by: MARCELLA TORRES MD on Apr 23 2022 11:18AM EST [facility] Radiology Study observation (narrative) [facility] XR Chest PA and LateralOrder ed By: Cc Provider on 04-23-2022 [facility] Vital Signs Date Time Vital Sign Value Performing Clinician Facility 05-03-2025 11:01-0400 Body height 170.[address] David Fink MD Work Phone: [facility] 05-03-2025 11:01-0400 Body mass index (BMI) [Ratio] 33.5 kg/m2 Dr. David Fink MD Work Phone: 6(842)514-880109 [address] 05-03-2025 11:01-0400 Body temperature 98.7 [degF] Dr. David Fink MD Work Phone: 5(421)696-797116 [place] [address] 05-03-2025 11:01-0400 Body weight 97.[address] David Fink MD Work Phone: 2(145)824-807816 [place] [address] 05-03-2025 11:01-0400 Diastolic blood pressure 71 mm[Hg] Dr. David Fink MD Work Phone: 5(501)024-939016 [place] [address] 05-03-2025 11:01-0400 Heart rate 85 /min Dr. David Fink MD Work Phone: 5(097)166-683816 [place] [address] 05-03-2025 11:01-0400 Respiratory rate 18 /min Dr. David Fink MD Work Phone: 6(981)305-680416 [place] [address] 05-03-2025 11:01-0400 SaO2% (BldA) [Mass fraction] 99 % Dr. David Fink MD Work Phone: 6(179)626-839616 [place] [address] 05-03-2025 11:01-0400 Systolic blood pressure 107 mm[Hg] Dr. David Fink MD Work Phone: 3(800)777-188816 [place] [address] 04-28-2025 23:42-0400 Body temperature 99.7 [degF] Dr. David Fink MD Work Phone: 4(313)041-160916 [place] [address] 04-28-2025 23:42-0400 Diastolic blood pressure 57 mm[Hg] Dr. David Fink MD Work Phone: 7(367)068-354016 [place] [address] 04-28-2025 23:42-0400 Heart rate 88 /min Dr. David Fink MD Work Phone: 3(442)958-278616 [place] [address] 04-28-2025 23:42-0400 Respiratory rate 15 /min Dr. David Fink MD Work Phone: 4(478)819-958516 [place] [address] 04-28-2025 23:42-0400 SaO2% (BldA) [Mass fraction] 99 % Dr. David Fink MD Work Phone: 7(379)092-260916 [place] [address] 04-28-2025 23:42-0400 Systolic blood pressure 115 mm[Hg] Dr. David Fink MD Work Phone: 4(480)615-234916 [place] [address] 04-28-2025 19:29-0400 Body height 170.[address] David Fink MD Work Phone: 5(509)560-180216 [place] [address] 04-28-2025 19:29-0400 Body mass index (BMI) [Ratio] 34.4 kg/m2 Dr. David Fink MD Work Phone: 9(546)125-802116 [place] [address] 04-28-2025 19:29-0400 Body weight 99.[address] David Fink MD Work Phone: 1(435)677-251716 [place] [address] 04-26-2025 09:19-0400 Body height 170.[address] David Fink MD Work Phone: 0(665)357-923916 [place] [address] 04-26-2025 09:19-0400 Body mass index (BMI) [Ratio] 34 kg/m2 Dr. David Fink MD Work Phone: 0(116)304-957816 [place] [address] 04-26-2025 09:19-0400 Body temperature 97.4 [degF] Dr. David Fink MD Work Phone: 7(238)316-333116 [place] [address] 04-26-2025 09:19-0400 Body weight 98.[address] David Fink MD Work Phone: 2(543)603-584016 [place] [address] 04-26-2025 09:19-0400 Diastolic blood pressure 74 mm[Hg] Dr. David Fink MD Work Phone: 7(023)339-654816 [place] [address] 04-26-2025 09:19-0400 Heart rate 64 /min Dr. David Fink MD Work Phone: 1(189)080-568816 [place] [address] 04-26-2025 09:19-0400 Respiratory rate 16 /min Dr. David Fink MD Work Phone: 9(788)111-705516 [place] [address] 04-26-2025 09:19-0400 SaO2% (BldA) [Mass fraction] 95 % Dr. David Fink MD Work Phone: 3(433)058-175116 [place] [address] 04-26-2025 09:19-0400 Systolic blood pressure 116 mm[Hg] Dr. David Fink MD Work Phone: 0(942)410-142216 [place] [address] 04-19-2025 09:06-0400 Body height 170.[address] David Fink MD Work Phone: 8(788)950-648216 [place] [address] 04-19-2025 09:06-0400 Body mass index (BMI) [Ratio] 34.9 kg/m2 Dr. David Fink MD Work Phone: 6(874)355-422516 [place] [address] 04-19-2025 09:06-0400 Body temperature 98.5 [degF] Dr. David Fink MD Work Phone: 5(698)856-015316 [place] [address] 04-19-2025 09:06-0400 Body weight 101.[address] David Fink MD Work Phone: 2(741)327-508916 [place] [address] 04-19-2025 09:06-0400 Diastolic blood pressure 74 mm[Hg] Dr. David Fink MD Work Phone: 2(133)189-155516 [place] [address] 04-19-2025 09:06-0400 Heart rate 80 /min Dr. David Fink MD Work Phone: 1(098)343-007316 [place] [address] 04-19-2025 09:06-0400 Respiratory rate 16 /min Dr. David Fink MD Work Phone: 8(127)836-903516 [place] [address] 04-19-2025 09:06-0400 SaO2% (BldA) [Mass fraction] 94 % Dr. David Fink MD Work Phone: 4(461)524-017616 [place] [address] 04-19-2025 09:06-0400 Systolic blood pressure 131 mm[Hg] Dr. David Fink MD Work Phone: 5(055)246-342216 [place] [address] 04-18-2025 10:46-0400 Body height 170.[address] David Fink MD Work Phone: 3(212)917-529416 [place] [address] 04-18-2025 10:46-0400 Body mass index (BMI) [Ratio] 34.9 kg/m2 Dr. David Fink MD Work Phone: 6(442)230-263616 [place] [address] 04-18-2025 10:46-0400 Body weight 101.[address] David Fink MD Work Phone: 8(011)253-045816 [place] [address] 04-18-2025 10:46-0400 Diastolic blood pressure 78 mm[Hg] Dr. David Fink MD Work Phone: 9(266)826-314516 [place] [address] 04-18-2025 10:46-0400 Heart rate 80 /min Dr. David Fink MD Work Phone: 8(115)350-511416 [place] [address] 04-18-2025 10:46-0400 Respiratory rate 16 /min Dr. David Fink MD Work Phone: 8(607)006-070316 [place] [address] 04-18-2025 10:46-0400 Systolic blood pressure 118 mm[Hg] Dr. David Fink MD Work Phone: 5(777)308-590116 [place] [address] 04-04-2025 14:17-0400 Body height 170.[address] David Fink MD Work Phone: 8(129)827-297016 [place] [address] 04-04-2025 14:13-0400 Body mass index (BMI) [Ratio] 35.2 kg/m2 Dr. David Fink MD Work Phone: 8(833)874-522816 [place] [address] 04-04-2025 14:13-0400 Body temperature 98.2 [degF] Dr. David Fink MD Work Phone: 9(245)516-592616 [place] [address] 04-04-2025 14:13-0400 Body weight 102.[address] David Fink MD Work Phone: 3(404)252-533816 [place] [address] 04-04-2025 14:13-0400 Diastolic blood pressure 80 mm[Hg] Dr. David Fink MD Work Phone: 0(515)169-817916 [place] [address] 04-04-2025 14:13-0400 Heart rate 83 /min Dr. David Fink MD Work Phone: 3(273)991-516016 [place] [address] 04-04-2025 14:13-0400 Respiratory rate 16 /min Dr. David Fink MD Work Phone: 5(732)956-885516 [place] [address] 04-04-2025 14:13-0400 SaO2% (BldA) [Mass fraction] 98 % Dr. David Fink MD Work Phone: 1(163)907-095116 [place] [address] 04-04-2025 14:13-0400 Systolic blood pressure 125 mm[Hg] Dr. David Fink MD Work Phone: 7(312)191-498316 [place] [address] 04-02-2025 13:15-0400 Body temperature 97.9 [degF] Dr. David Fink MD Work Phone: 1(549)348-137816 [place] [address] 04-02-2025 13:15-0400 Diastolic blood pressure 62 mm[Hg] Dr. David Fink MD Work Phone: 2(822)053-474316 [place] [address] 04-02-2025 13:15-0400 Heart rate 60 /min Dr. David Fink MD Work Phone: 2(070)983-788616 [place] [address] 04-02-2025 13:15-0400 Respiratory rate 16 /min Dr. David Fink MD Work Phone: 0(818)586-582616 [place] [address] 04-02-2025 13:15-0400 SaO2% (BldA) [Mass fraction] 96 % Dr. David Fink MD Work Phone: 8(244)969-824116 [place] [address] 04-02-2025 13:15-0400 Systolic blood pressure 116 mm[Hg] Dr. David Fink MD Work Phone: 4(482)795-977416 [place] [address] 04-02-2025 12:45-0400 Inhaled oxygen flow rate 2 L/min Dr. David Fink MD Work Phone: 7(929)320-817216 [place] [address] 04-02-2025 10:06-0400 Body height 170.[address] David Fink MD Work Phone: 1(176)420-939216 [place] [address] 04-02-2025 10:06-0400 Body mass index (BMI) [Ratio] 35.2 kg/m2 Dr. David Fink MD Work Phone: 7(359)661-278316 [place] [address] 04-02-2025 10:06-0400 Body weight [address] David Fink MD Work Phone: 5(779)284-385016 [place] [address] 03-29-2025 14:36-0400 Body weight 102.[address] David Fink MD Work Phone: 0(550)326-516316 [place] [address] 03-28-2025 15:36-0400 Body height 170.[address] Dvaid Fink MD Work Phone: 2(355)283-262516 [place] [address] 03-28-2025 15:36-0400 Body mass index (BMI) [Ratio] 35.3 kg/m2 Dr. David Fink MD Work Phone: 8(211)759-096116 [place] [address] 03-28-2025 15:36-0400 Body temperature 96.7 [degF] Dr. David Fink MD Work Phone: 3(300)663-551516 [place] [address] 03-28-2025 15:36-0400 Body weight 102.[address] David Fink MD Work Phone: 3(331)447-986516 [place] [address] 03-28-2025 15:36-0400 Diastolic blood pressure 77 mm[Hg] Dr. David Fink MD Work Phone: 7(661)252-238316 [place] [address] 03-28-2025 15:36-0400 Heart rate 78 /min Dr. David Fink MD Work Phone: 1(821)947-455516 [place] [address] 03-28-2025 15:36-0400 Respiratory rate 18 /min Dr. David Fink MD Work Phone: 7(038)511-887416 [place] [address] 03-28-2025 15:36-0400 SaO2% (BldA) [Mass fraction] 95 % Dr. David Fink MD Work Phone: 1(561)815-850316 [place] [address] 03-28-2025 15:36-0400 Systolic blood pressure 111 mm[Hg] Dr. David Fink MD Work Phone: 2(445)353-759016 [place] [address] 03-26-2025 13:32-0400 Body weight 102.[address] David Fink MD Work Phone: 5(610)990-350216 [place] [address] 03-26-2025 13:32-0400 Diastolic blood pressure 80 mm[Hg] Dr. David Fink MD Work Phone: 3(653)168-262316 [place] [address] 03-26-2025 13:32-0400 Heart rate 96 /min Dr. David Fink MD Work Phone: 8(924)916-427516 [place] [address] 03-26-2025 13:32-0400 Respiratory rate 17 /min Dr. David Fink MD Work Phone: [facility] 03-26-2025 13:32-0400 SaO2% (BldA) [Mass fraction] 95 % Dr. David Fink MD Work Phone: [facility] 03-26-2025 13:32-0400 Systolic blood pressure 121 mm[Hg] Dr. David Fink MD Work Phone: [facility] 03-21-2025 13:28-0400 Body temperature 97 [degF] Christopher Cunningham MD Work Phone: 2(046)741-960682 [place] [address] 03-21-2025 13:28-0400 Body weight 102.56 kg Christopher Cunningham MD Work Phone: 3(418)756-453282 [place] [address] 03-21-2025 13:28-0400 Diastolic blood pressure 57 mm[Hg] Christopher Cunningham MD Work Phone: 0(415)276-386182 [place] [address] 03-21-2025 13:28-0400 Heart rate 64 /min Christopher Cunningham MD Work Phone: 1(899)455-590582 [place] [address] 03-21-2025 13:28-0400 Respiratory rate 18 /min Christopher Cunningham MD Work Phone: 9(975)427-774582 [place] [address] 03-21-2025 13:28-0400 SaO2% (BldA) [Mass fraction] 99 % Christopher Cunningham MD Work Phone: 7(255)767-858582 [place] [address] 03-21-2025 13:28-0400 Systolic blood pressure 123 mm[Hg] Christopher Cunningham MD Work Phone: 5(955)045-916082 [place] [address] 02-26-2025 11:18-0400 Body mass index (BMI) [Ratio] 34.9 kg/m2 Dr. David Fink MD Work Phone: [facility] 02-26-2025 11:18-0400 Body temperature 98.5 [degF] Dr. David Fink MD Work Phone: [facility] 02-26-2025 11:18-0400 Body weight 101.[address] David Fink MD Work Phone: [facility] 02-26-2025 11:18-0400 Diastolic blood pressure 75 mm[Hg] Dr. David Fink MD Work Phone: [facility] 02-26-2025 11:18-0400 Heart rate 76 /min Dr. David Fink MD Work Phone: [facility] 02-26-2025 11:18-0400 Respiratory rate 18 /min Dr. David Fink MD Work Phone: [facility] [facility] 02-26-2025 11:18-0400 SaO2% (BldA) [Mass fraction] 96 % Dr. David Fink MD Work Phone: [facility] 02-26-2025 11:18-0400 Systolic blood pressure 116 mm[Hg] Dr. David Fink MD Work Phone: [facility] 02-14-2025 13:52-0400 Body height 170.2 cm Ashok Keon TOBACCO SIEVE OPERATOR - UMBRELLA SUPERVISOR Work Phone: [facility] 02-14-2025 13:52-0400 Body mass index (BMI) [Ratio] 34.64 kg/m2 Ashok Keon TOBACCO SIEVE OPERATOR - UMBRELLA SUPERVISOR Work Phone: [facility] 02-14-2025 13:52-0400 Body weight 100.34 kg Ashok Keon TOBACCO SIEVE OPERATOR - UMBRELLA SUPERVISOR Work Phone: [facility] 02-14-2025 13:52-0400 Diastolic blood pressure 78 mm[Hg] Ashok Keon TOBACCO SIEVE OPERATOR - UMBRELLA SUPERVISOR Work Phone: [facility] 02-14-2025 13:52-0400 Heart rate 80 /min Ashok Keon TOBACCO SIEVE OPERATOR - UMBRELLA SUPERVISOR Work Phone: [facility] 02-14-2025 13:52-0400 Systolic blood pressure 122 mm[Hg] Ashokrene Herbert TOBACCO SIEVE OPERATOR - UMBRELLA SUPERVISOR Work Phone: [facility] [employer] 01-27-2025 09:10-0400 Body temperature 96.49 [degF] Darvin Grady MD Work Phone: [facility] [employer] 01-27-2025 09:10-0400 Diastolic blood pressure 51 mm[Hg] Darvin Grady MD Work Phone: [facility] [employer] 01-27-2025 09:10-0400 Heart rate 59 /min Darvin Grady MD Work Phone: [facility] [employer] [facility] 01-27-2025 09:10-0400 Respiratory rate 18 /min Darvin Grady MD Work Phone: [facility] [employer] [facility] 01-27-2025 09:10-0400 SaO2% (BldA) [Mass fraction] 94 % Darvin Grady MD Work Phone: [facility] [employer] 01-27-2025 09:10-0400 Systolic blood pressure 97 mm[Hg] Darvin Grady MD Work Phone: [facility] 01-26-2025 06:40-0400 Body height 170.2 cm Darvin Grady MD Work Phone: [facility] [employer] [facility] 01-26-2025 06:40-0400 Body mass index (BMI) [Ratio] 35.21 kg/m2 Darvin Grady MD Work Phone: [facility] [employer] [facility] 01-26-2025 06:40-0400 Body weight 102 kg Darvin Grady MD Work Phone: [facility] [employer] [facility] 01-17-2025 10:23-0500 Body height 170.2 cm Darvin Grady MD Work Phone: [facility] [employer] [facility] 01-17-2025 10:23-0500 Body mass index (BMI) [Ratio] 36.98 kg/m2 Darvin Grady MD Work Phone: [facility] [employer] [facility] 01-17-2025 10:23-0500 Body weight 107.09 kg Darvin Grady MD Work Phone: [facility] [employer] [facility] 01-17-2025 10:23-0500 Diastolic blood pressure 68 mm[Hg] Darvin Grady MD Work Phone: [facility] 01-17-2025 10:23-0500 Heart rate 69 /min Darvin Grady MD Work Phone: [facility] 01-17-2025 10:23-0500 SaO2% (BldA) [Mass fraction] 95 % Darvin Grady MD Work Phone: [facility] 01-17-2025 10:23-0500 Systolic blood pressure 122 mm[Hg] Darvin Grady MD Work Phone: [facility] 01-10-2025 13:05-0500 Body height 170.[address] David Fink MD Work Phone: [facility] 01-10-2025 13:05-0500 Body mass index (BMI) [Ratio] 37.3 kg/m2 Dr. David Fink MD Work Phone: 8(729)849-695262 [place] [address] 01-10-2025 13:05-0500 Body temperature 96.6 [degF] Dr. David Fink MD Work Phone: 3(071)691-159662 [place] [address] 01-10-2025 13:05-0500 Body weight 108.[address] David Fink MD Work Phone: [facility] 01-10-2025 13:05-0500 Diastolic blood pressure 72 mm[Hg] Dr. David Fink MD Work Phone: [facility] 01-10-2025 13:05-0500 Heart rate 74 /min Dr. David Fink MD Work Phone: [facility] 01-10-2025 13:05-0500 Respiratory rate 18 /min Dr. David Fink MD Work Phone: [facility] 01-10-2025 13:05-0500 SaO2% (BldA) [Mass fraction] 93 % Dr. David Fink MD Work Phone: [facility] 01-10-2025 13:05-0500 Systolic blood pressure 110 mm[Hg] Dr. David Fink MD Work Phone: [facility] 01-08-2025 21:55-0500 Body temperature 98.3 [degF] Dr. David Fink MD Work Phone: [facility] 01-08-2025 21:55-0500 Diastolic blood pressure 89 mm[Hg] Dr. David Fink MD Work Phone: 6(928)919-247616 [place] [address] 01-08-2025 21:55-0500 Heart rate 78 /min Dr. David Fink MD Work Phone: 1(413)366-259216 [place] [address] 01-08-2025 21:55-0500 Respiratory rate 16 /min Dr. David Fink MD Work Phone: 7(103)522-237816 [place] [address] 01-08-2025 21:55-0500 SaO2% (BldA) [Mass fraction] 98 % Dr. David Fink MD Work Phone: 1(920)354-086662 [place] [address] 01-08-2025 21:55-0500 Systolic blood pressure 128 mm[Hg] Dr. David Fink MD Work Phone: [facility] 01-08-2025 17:57-0500 Body mass index (BMI) [Ratio] 36.7 kg/m2 Dr. David Fink MD Work Phone: [facility] 01-08-2025 17:57-0500 Body weight 106.[address] David Fink MD Work Phone: [facility] 12-24-2024 13:51-0500 Body mass index (BMI) [Ratio] 38.19 kg/m2 Isaías Ribeiro APRN.UMBRELLA SUPERVISOR Work Phone: [facility] 12-24-2024 13:51-0500 Body temperature 97.81 [degF] Isaías Ribeiro APRN.UMBRELLA SUPERVISOR Work Phone: [facility] 12-24-2024 13:51-0500 Body weight 110.6 kg Isaías Ribeiro APRN.UMBRELLA SUPERVISOR Work Phone: [facility] 12-24-2024 13:51-0500 Diastolic blood pressure 68 mm[Hg] Isaías Pendlebury TOBACCO SIEVE OPERATOR.UMBRELLA SUPERVISOR Work Phone: [facility] 12-24-2024 13:51-0500 Heart rate 80 /min [facility] TOBACCO SIEVE OPERATOR.UMBRELLA SUPERVISOR Work Phone: [facility] 12-24-2024 13:51-0500 Respiratory rate 18 /min [facility]ías [facility] TOBACCO SIEVE OPERATOR.UMBRELLA SUPERVISOR Work Phone: [facility] 12-24-2024 13:51-0500 SaO2% (BldA) [Mass fraction] 96 % Isaíasmaría [facility] TOBACCO SIEVE OPERATOR.UMBRELLA SUPERVISOR Work Phone: [facility] 12-24-2024 13:51-0500 Systolic blood pressure 126 mm[Hg] [facility] TOBACCO SIEVE OPERATOR.UMBRELLA SUPERVISOR Work Phone: [facility] 08-02-2024 18:51-0400 Body mass index (BMI) [Ratio] 38.5 kg/m2 [facility]ías [facility] TOBACCO SIEVE OPERATOR.UMBRELLA SUPERVISOR Work Phone: [facility] 08-02-2024 18:51-0400 Body temperature 98.01 [degF] Isaías [facility] TOBACCO SIEVE OPERATOR.UMBRELLA SUPERVISOR Work Phone: [facility] 08-02-2024 18:51-0400 Body weight 111.5 kg Isaíasmaría [facility] TOBACCO SIEVE OPERATOR.UMBRELLA SUPERVISOR Work Phone: [facility] 08-02-2024 18:51-0400 Diastolic blood pressure 76 mm[Hg] [facility] TOBACCO SIEVE OPERATOR.UMBRELLA SUPERVISOR Work Phone: [facility] 08-02-2024 18:51-0400 Heart rate 93 /min [facility]íasmaría [facility] TOBACCO SIEVE OPERATOR.UMBRELLA SUPERVISOR Work Phone: [facility] 08-02-2024 18:51-0400 Respiratory rate 20 /min [facility] TOBACCO SIEVE OPERATOR.UMBRELLA SUPERVISOR Work Phone: [facility] 08-02-2024 18:51-0400 SaO2% (BldA) [Mass fraction] 94 % Isaíasmaría [facility] TOBACCO SIEVE OPERATOR.UMBRELLA SUPERVISOR Work Phone: [facility] 08-02-2024 18:51-0400 Systolic blood pressure 119 mm[Hg] Isaías Ribeiro TOBACCO SIEVE OPERATOR.UMBRELLA SUPERVISOR Work Phone: [facility] 04-18-2024 12:13-0400 Body mass index (BMI) [Ratio] 38.81 kg/m2 Juana Linton TOBACCO SIEVE OPERATOR.UMBRELLA SUPERVISOR Work Phone: [facility] 04-18-2024 12:13-0400 Body temperature 98.49 [degF] Juana Linton TOBACCO SIEVE OPERATOR.UMBRELLA SUPERVISOR Work Phone: [facility] 04-18-2024 12:13-0400 Body weight 112.4 kg Juana Linton TOBACCO SIEVE OPERATOR.UMBRELLA SUPERVISOR Work Phone: [facility] 04-18-2024 12:13-0400 Diastolic blood pressure 68 mm[Hg] Juana Linton TOBACCO SIEVE OPERATOR.UMBRELLA SUPERVISOR Work Phone: [facility] 04-18-2024 12:13-0400 Heart rate 98 /min Juana Linton TOBACCO SIEVE OPERATOR.UMBRELLA SUPERVISOR Work Phone: [facility] 04-18-2024 12:13-0400 Respiratory rate 16 /min Juana Linton TOBACCO SIEVE OPERATOR.UMBRELLA SUPERVISOR Work Phone: [facility] 04-18-2024 12:13-0400 SaO2% (BldA) [Mass fraction] 95 % Juana Linton TOBACCO SIEVE OPERATOR.UMBRELLA SUPERVISOR Work Phone: [facility] 04-18-2024 12:13-0400 Systolic blood pressure 118 mm[Hg] Juana Linton TOBACCO SIEVE OPERATOR.UMBRELLA SUPERVISOR Work Phone: [facility] 03-23-2024 10:40-0400 Body mass index (BMI) [Ratio] 39.47 kg/m2 Cinthya Vaughan TOBACCO SIEVE OPERATOR.UMBRELLA SUPERVISOR Work Phone: [facility] 03-23-2024 10:40-0400 Body temperature 97.59 [degF] Cinthya Vaughan TOBACCO SIEVE OPERATOR.UMBRELLA SUPERVISOR Work Phone: [facility] 03-23-2024 10:40-0400 Body weight 114.3 kg Cinthya Praisler-Wood TOBACCO SIEVE OPERATOR.UMBRELLA SUPERVISOR Work Phone: [facility] 03-23-2024 10:40-0400 Diastolic blood pressure 64 mm[Hg] Cinthya Praisler-Wood TOBACCO SIEVE OPERATOR.UMBRELLA SUPERVISOR Work Phone: [facility] 03-23-2024 10:40-0400 Heart rate 109 /min Cinthya Praisler-Wood TOBACCO SIEVE OPERATOR.UMBRELLA SUPERVISOR Work Phone: [facility] 03-23-2024 10:40-0400 Respiratory rate 16 /min Cinthya Praisler-Wood TOBACCO SIEVE OPERATOR.UMBRELLA SUPERVISOR Work Phone: [facility] 03-23-2024 10:40-0400 SaO2% (BldA) [Mass fraction] 98 % Cinthya Praisler-Wood TOBACCO SIEVE OPERATOR.UMBRELLA SUPERVISOR Work Phone: [facility] 03-23-2024 10:40-0400 Systolic blood pressure 138 mm[Hg] Cinthya Praisler-Wood TOBACCO SIEVE OPERATOR.UMBRELLA SUPERVISOR Work Phone: [facility] 03-01-2023 14:29-0400 Body weight 108.41 kg David Fink MD Work Phone: [facility] 03-01-2023 14:29-0400 Diastolic blood pressure 72 mm[Hg] David Fink MD Work Phone: [facility] 03-01-2023 14:29-0400 Heart rate 58 /min David Fink MD Work Phone: [facility] 03-01-2023 14:29-0400 SaO2% (BldA) [Mass fraction] 95 % David Fink MD Work Phone: [facility] 03-01-2023 14:29-0400 Systolic blood pressure 112 mm[Hg] David Fink MD Work Phone: [facility] 01-26-2023 14:37-0400 Body height 170.2 cm David Fink MD Work Phone: [facility] 03-14-2023 14:37-0400 Body weight 111.13 kg David Fink MD Work Phone: [facility] 01-26-2023 14:37-0400 Diastolic blood pressure 80 mm[Hg] David Fink MD Work Phone: [facility] 01-26-2023 14:37-0400 Heart rate 84 /min David Fink MD Work Phone: [facility] 01-26-2023 14:37-0400 SaO2% (BldA) [Mass fraction] 95 % David Fink MD Work Phone: [facility] 01-26-2023 14:37-0400 Systolic blood pressure 130 mm[Hg] David Fink MD Work Phone: [facility] 12-08-2022 15:16-0500 Body height 170.18 cm No Primary Care Physician [facility] 12-08-2022 15:16-0500 Body mass index (BMI) [Ratio] 38.3 kg/m2 No Primary Care Physician [facility] 12-08-2022 15:16-0500 Body weight 111.13 kg No Primary Care Physician [facility] 12-08-2022 15:16-0500 Diastolic blood pressure 64 mm[Hg] No Primary Care Physician [facility] 12-08-2022 15:16-0500 Heart rate 65 /min No Primary Care Physician [facility] 12-08-2022 15:16-0500 Respiratory rate 18 /min No Primary Care Physician [facility] 12-08-2022 15:16-0500 Systolic blood pressure 104 mm[Hg] No Primary Care Physician [facility] 07-27-2022 13:06-0400 Body height 169 cm David Fink MD Work Phone: [facility] 07-27-2022 13:06-0400 Body weight 101.61 kg David Fink MD Work Phone: [facility] 07-27-2022 13:06-0400 Diastolic blood pressure 62 mm[Hg] David Fink MD Work Phone: [facility] 07-27-2022 13:06-0400 Heart rate 68 /min David Fink MD Work Phone: [facility] 07-27-2022 13:06-0400 Systolic blood pressure 112 mm[Hg] David Fink MD Work Phone: [facility] 06-08-2022 14:02-0400 Body weight 99.34 kg Kyleigh Saucedo MD Work Phone: [facility] 06-08-2022 14:02-0400 Diastolic blood pressure 68 mm[Hg] Kyleigh Saucedo MD Work Phone: [facility] 06-08-2022 14:02-0400 Systolic blood pressure 118 mm[Hg] Kyleigh Saucedo MD Work Phone: [facility] 05-29-2022 15:33-0400 Body temperature 98 [degF] No Primary Care Physician [facility] Work Phone: 05-29-2022 15:33-0400 Diastolic blood pressure 60 mm[Hg] No Primary Care Physician [facility] Work Phone: 05-29-2022 15:33-0400 Heart rate 64 /min No Primary Care Physician [facility] Work Phone: 05-29-2022 15:33-0400 Respiratory rate 17 /min No Primary Care Physician [facility] Work Phone: 05-29-2022 15:33-0400 SaO2% (BldA) [Mass fraction] 95 % No Primary Care Physician [facility] Work Phone: 05-29-2022 15:33-0400 Systolic blood pressure 119 mm[Hg] No Primary Care Physician [facility] Work Phone: 05-28-2022 18:26-0400 Inhaled oxygen flow rate 2 L/min No Primary Care Physician [facility] Work Phone: 05-28-2022 14:46-0400 Body height 170.18 cm No Primary Care Physician [facility] Work Phone: 05-28-2022 14:46-0400 Body mass index (BMI) [Ratio] 36.6 kg/m2 No Primary Care Physician [facility] Work Phone: 05-28-2022 14:46-0400 Body weight 106.2 kg No Primary Care Physician [facility] Work Phone: 05-19-2022 13:54-0400 Body height 170.2 cm Kyleigh Saucedo MD Work Phone: [facility] 05-19-2022 13:54-0400 Body weight 107.5 kg Kyleigh Saucedo MD Work Phone: [facility] 05-19-2022 13:54-0400 Diastolic blood pressure 70 mm[Hg] Kyleigh Saucedo MD Work Phone: [facility] 05-19-2022 13:54-0400 Heart rate 74 /min Kyleigh Saucedo MD Work Phone: [facility] 05-19-2022 13:54-0400 Respiratory rate 16 /min Kyleigh Saucedo MD Work Phone: [facility] 05-19-2022 13:54-0400 Systolic blood pressure 126 mm[Hg] Kyleigh Saucedo MD Work Phone: [facility] 04-23-2022 10:39-0400 Body temperature 97 [degF] Juana Linton TOBACCO SIEVE OPERATOR.UMBRELLA SUPERVISOR Work Phone: [facility] 04-23-2022 10:39-0400 Body weight 107.86 kg Juana Linton TOBACCO SIEVE OPERATOR.UMBRELLA SUPERVISOR Work Phone: [facility] 04-23-2022 10:39-0400 Diastolic blood pressure 84 mm[Hg] Juana Linton TOBACCO SIEVE OPERATOR.UMBRELLA SUPERVISOR Work Phone: [facility] 04-23-2022 10:39-0400 Heart rate 75 /min Juana Linton TOBACCO SIEVE OPERATOR.UMBRELLA SUPERVISOR Work Phone: [facility] 04-23-2022 10:39-0400 Respiratory rate 18 /min Juana Linton TOBACCO SIEVE OPERATOR.UMBRELLA SUPERVISOR Work Phone: [facility] 04-23-2022 10:39-0400 SaO2% (BldA) [Mass fraction] 96 % Juanadavidson Linton TOBACCO SIEVE OPERATOR.UMBRELLA SUPERVISOR Work Phone: [facility] 04-23-2022 10:39-0400 Systolic blood pressure 126 mm[Hg] Juana Linton TOBACCO SIEVE OPERATOR.UMBRELLA SUPERVISOR Work Phone: [facility] 03-19-2022 11:38-0400 Body weight 110.68 kg Kyleigh Saucedo MD Work Phone: [facility] 03-19-2022 11:38-0400 Diastolic blood pressure 70 mm[Hg] Kyleigh Saucedo MD Work Phone: [facility] 03-19-2022 11:38-0400 Systolic blood pressure 140 mm[Hg] Kyleigh Saucedo MD Work Phone: [facility] Encounters Encounter Date Encounter Type Care Provider Facility Start: 05-03-2025 End: 05-03-2025 Patient encounter [facility] Work [facility]: Start: 05-03-2025 End: 05-03-2025 ambulatory Delmis Corral RN DIGESTIVE Facility:[facility] Start: 05-03-[address] Nomi Persaud MD -[facility] Start: 04-28-2025 End: 04-28-2025 Emergency department patient visit Dr. David Fink MD Work Phone: -Emergency Department Work Phone: Start: 04-26-2025 End: 04-26-[address] Imani Persaud MD -[facility] Work Phone: Start: 04-26-2025 End: 04-26-[address] David Fink MD Work Phone: [facility] Work Phone: Start: 04-26-[address] Nomi Persaud MD -[facility] Start: 04-19-[address] Nomi Persaud MD -[facility] Start: 04-19-2025 End: 04-19-[address] Imani Persaud MD -[facility] Work Phone: Start: 04-19-2025 End: 04-19-[address] David Fink MD Work Phone: [facility] Work Phone: Start: 04-18-2025 End: 04-18-[address] David Fink MD Work Phone: [facility] Work Phone: Start: 04-18-2025 End: 04-18-2025 Patient encounter procedure Keron King Cody [facility] Work Phone: Start: 04-04-2025 End: 04-04-2025 Patient encounter procedure Delmis MirandaShayna [facility] Work Phone: Start: 04-04-2025 End: 04-04-[address] David Fink MD Work Phone: [facility] Work Phone: Start: 04-02-2025 ambulatory Theo Collazo lity:[facility] Start: 04-02-2025 Non-patient / Non-visit Dr. Aria Richard MD -[facility] Start: 04-02-2025 End: 04-02-2025 Admission to same day surgery center Dr. Theo Richard MD -[facility] Start: 04-02-2025 End: 04-02-[address] David Fink MD Work Phone: [facility] Work Phone: Start: 03-28-2025 End: 03-28-[address] Imani Persaud MD -[facility] Work Phone: Start: 03-28-2025 End: 03-28-[address] David Fink MD Work Phone: [facility] Work Phone: Start: 03-26-2025 End: 03-26-[address] David Fink MD Work Phone: [facility] Work Phone: Start: 03-26-2025 End: 03-26-[address] Imani Persaud MD -[facility] Work Phone: Start: 03-26-2025 End: 03-26-[address] 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 Comment on above: Pelvic mass (Primary Dx); Intra-abdominal and pelvic swelling, mass and lump, unspecified site Start: 01-26-2025 End: 01-27-2025 Unknown DARVINCRISTAL GRADY [facility] Start: 01-23-2025 End: 01-23-2025 ambulatory DARVIN SILVAWS [facility] Start: 01-19-2025 End: 01-19-2025 Telephone encounter Darvin Grady MD Work Phone: [facility] Comment on above: Other (Surgery sched [facility]) Start: 01-17-2025 End: 01-17-2025 Manual pelvic examination Darvin Grady MD Work Phone: [facility] Comment on above: Pelvic mass (Primary Dx) Start: 01-17-2025 End: 01-17-2025 Office outpatient new 30 minutes Darvin Grady MD Work Phone: [facility] [place] Comment on above: Pelvic mass in femal e (Primary Dx) Start: 01-17-2025 End: 01-17-2025 ambulatory Darvin Grady MD Work Phone: [facility] [place] Start: 01-12-2025 End: 01-12-[address] David Fink MD Work Phone: [facility] Work Phone: Start: 01-12-2025 End: 01-12-[address] Imani Persaud MD -Ultrasound, [facility] Work Phone: Start: 01-12-2025 End: 01-12-2025 ambulatory [facility] Facility:[facility] Start: 01-10-[address] Nomi Persaud MD -[facility] Start: 01-10-2025 End: 01-10-[address] Imani Persaud MD -[facility] Work Phone: Start: 01-10-2025 End: 01-10-2025 ambulatory [facility] Facility:[facility] Start: 01-08-2025 End: 01-08-2025 Emergency department patient visit Dr. Isaiah Villanueav DO -Emergency Department Work Phone: Start: 12-25-2024 End: 12-25-2024 Follow-up encounter Chace ALEX Work Phone: [facility] Start: 12-24-2024 End: 12-24-2024 ambulatory DAVID FINK Facility:[facility] Start: 12-24-2024 End: 12-24-2024 Office outpatient visit 25 minutes Isaías Ribeiro APRN.UMBRELLA SUPERVISOR Work Phone: [facility] Comment on above: Burning with milkainati on (Primary Dx) Start: 10-03-2024 End: 10-09-2024 Telephone encounter Susy Smith APRN.UMBRELLA SUPERVISOR Work Phone: [facility] Comment on above: Results Start: 09-29-2024 End: 09-29-2024 ambulatory DVAID FINK Facility:[facility] Start: 09-29-2024 End: 09-29-2024 Subsequent hospital visit by physician Screen Mammo [facility] Comment on above: Encounter for screen ing mammogram for breast cancer [Z12.31] Start: 09-25-2024 End: 09-25-2024 ambulatory David Fink MD Work Phone: [facility] Comment on above: Mammogram Start: 09-25-2024 End: 09-25-2024 Telephone encounter David Fink MD Work Phone: Mammogram Comment on above: Orders Start: 08-02-2024 End: 08-02-2024 Subsequent hospital visit by physician Xr [facility] Work Phone: Radiology Comment on above: Acute cough [R05.1] Start: 08-02-2024 End: 08-02-2024 ambulatory [facility] Facility:[facility] Start: 08-02-2024 End: 08-02-2024 Office outpatient visit 25 minutes Isaías Ribeiro APRN.UMBRELLA SUPERVISOR Work Phone: [facility] Comment on above: Acute cough (Primary Dx); Bronchitis Start: 08-02-2024 End: 08-02-2024 Telephone encounter Isaías Ribeiro APRN.UMBRELLA SUPERVISOR Work Phone: [facility] Comment on above: Results Start: 04-18-2024 End: 04-18-2024 ambulatory [facility] Facility:[facility] Start: 04-18-2024 End: 04-18-2024 Patient encounter procedure Juana Linton TOBACCO SIEVE OPERATOR.UMBRELLA SUPERVISOR Work Phone: [facility] Comment on above: Acute cough (Primary Dx); Rhinosinusitis Start: 03-23-2024 End: 03-23-2024 [facility] Facility:[facility] Start: 03-23-2024 End: 03-23-2024 Patient encounter procedure Cinthya Vaughan TOBACCO SIEVE OPERATOR.UMBRELLA SUPERVISOR Work Phone: [facility] Comment on above: Acute cough (Primary Dx); Viral URI; Viral bronchitis; Eye redness Start: 09-20-2023 Documentation procedure Mammog lala Coordinator [facility] Start: 09-20-2023 Letter encounter Mammography Coordinator [facility] Department Start: 09-17-2023 End: 09-17-2023 Subsequent hospital visit by physician Screen Mammo [facility] Mammogram Comment on above: Encounter for screen ing mammogram for malignant neoplasm of breast [Z12.31] Start: 08-18-2023 Telephone encounter David Fink MD Work Phone: Family [facility] Comment on above: Patient Question Start: 03-01-2023 End: 03-01-2023 Patient encounter procedure David Fink MD Work Phone: [facility] Comment on above: GERD without esophag itis (Primary Dx); Adjustment disorder with other symptom Start: 02-16-2023 End: 02-16-2023 ambulatory Hilda Morin APRN.UMBRELLA SUPERVISOR Work Phone: [facility] Comment on above: COVID-19 (Primary Dx ) Start: 02-16-2023 End: 02-16-2023 Telemedicine consultation with patient Hilda Morin APRN.UMBRELLA SUPERVISOR Work Phone: [facility] Start: 01-28-2023 Telephone encounter David Fink MD Work Phone: [facility] Comment on above: Results Start: 01-26-2023 End: 01-26-2023 Subsequent hospital visit by physician Vivian [facility] Work Phone: Radiology Comment on above: Trigger little finge r of right hand [M65.351] Start: 01-26-2023 End: 01-26-2023 Patient encounter procedure David Fink MD Work Phone: [facility] Comment on above: 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, unspecified vessel or lesion type (HCC) (Primary Dx); Hyperlipidemia, mixed; Hyperglycemia; Obesity, Class I, BMI 30-34.9; Trigger little finger of right hand; Right elbow pain; Numbness; GERD without esophagitis; Cough, unspecified type; Adjustment disorder with anxious mood Start: 12-08-2022 Patient encounter procedure No Primary Care Physician [facility] Start: 12-08-2022 End: 12-08-2022 Patient encounter procedure No Primary Care Physician [facility] Start: 11-30-2022 End: 11-30-2022 ambulatory No Primary Care Physician [facility] Work Phone: Start: 11-30-2022 End: 11-30-2022 Patient encounter procedure No Primary Care Physician [facility] Start: 10-13-2022 Orders Only Tsering orellana MD Work Phone: [facility] Provider Adult Start: 07-30-2022 Documentation procedure Mammog lala Coordinator [facility] Start: 07-30-2022 Letter encounter Mammography Coordinator [facility] Department Start: 07-30-2022 End: 07-30-2022 Subsequent hospital visit by physician Screen Mammo [facility] Mammogram Comment on above: Obesity, Class I, BM I 30-34.9 [E66.9] Start: 07-28-2022 Telephone encounter David Fink MD Work Phone: [facility] Comment on above: Results Start: 07-27-2022 End: 07-27-2022 Patient encounter procedure David Fink MD Work Phone: [facility] Comment on above: 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, unspecified vessel or lesion type (HCC) (Primary Dx); Blood in stool; Hyperglycemia; Tobacco use; Hyperlipidemia, mixed; Neck mass Start: 06-25-2022 Telephone encounter David Fink MD Work Phone: [facility] Comment on above: Patient Question Start: 06-15-2022 [...] encounter procedure Kyleigh Saucedo MD Work Phone: [facility] Start: 05-28-2022 End: 05-29-2022 Evaluation and management of inpatient [facility] Start: 05-25-2022 Non-patient / Non-visit No [facility] Care Physician [facility] Start: 05-25-2022 End: 05-25-2022 Patient encounter procedure No Primary Care Physician [facility] Start: 05-19-2022 End: 05-19-2022 Patient encounter procedure Kyleigh Saucedo MD Work Phone: OB/Gynecology Comment on above: Menorrhagia with irr egular cycle (Primary Dx); Uterine leiomyoma, unspecified location; Iron deficiency anemia due to chronic blood loss Start: 05-04-2022 Refill Kyleigh saeed MD Work Phone: OB/Gynecology Comment on above: Refill Request Start: 04-23-2022 End: 04-23-2022 Subsequent hospital visit by physician Vivian [facility] Work Phone: Radiology Comment on above: Cough [R05.9] Start: 04-23-2022 End: 04-23-2022 Patient encounter procedure Juana Linton TOBACCO SIEVE OPERATOR.UMBRELLA SUPERVISOR Work Phone: [facility] Comment on above: Cough (Primary Dx); [...] encounter chace rodriguez caregiver [facility] Provider [facility] Start: 09-22-2021 Telephone encounter Kyleigh Saucedo MD Work Phone: OB/Gynecology Comment on above: Appointment Procedures Date Procedure Procedure Detail Performing Clinician Start: 05-03-2025 Urnls dip stick/tabl et reagent auto microscopy Dr. David Fink MD Work Phone: Start: 05-03-[address] David Fink MD Work Phone: Start: 05-03-2025 Lymphocyte percent differential count Dr. David Fink MD Work Phone: Start: 05-03-2025 Serum inorganic phos phate measurement Dr. David Fink MD Work Phone: Start: 04-28-2025 Urnls dip stick/tabl et reagent auto microscopy Dr. David Fink MD Work Phone: Start: 04-28-2025 X-ray of chest, PA a nd lateral views Dr. David Fink MD Work Phone: Start: 04-28-[address] David Fink MD Work Phone: Start: 04-28-2025 Serum inorganic phos phate measurement Dr. David Fink MD Work Phone: Start: 04-28-[address] Bucky Fink MD Work Phone: Start: 04-26-[address] David [...] 01-27-2025 Blood count complete automated Wendie Thompson DO Work Phone: Start: 01-26-2025 End: 01-26-2025 Exploratory [...] lds trcg only w/o i&r Shasha Leahy TOBACCO SIEVE OPERATOR - UMBRELLA SUPERVISOR Work Phone: Start: 01-26-2025 Antibody screen DARVIN GRADY Comment on above: Order Comment: HOLD. Specimen is valid for 3 days - nurse to verify valid specimen Performed By: #### L [id number] #### Security Auditor: KYREE WEATHERS ([id number]) [facility] ([facility]) [address] [place] [address] Start: 01-26-2025 ABO and Rh group [Ty pe] in Blood by Confirmatory method Darvin Grady MD Work Phone: Start: 01-26-2025 Basic metabolic pane l calcium total Shasha Leahy TOBACCO SIEVE OPERATOR - UMBRELLA SUPERVISOR Work Phone: Start: 01-26-2025 Blood typing serolog [...] et rgnt auto w/o microscopy Karena Arzola TOBACCO SIEVE OPERATOR.UMBRELLA SUPERVISOR Work Phone: Start: 09-29-2024 Mammography Darvin moncada MD Work Phone: Start: 08-02-2024 Radiologic exam ches t 2 views Isaías Ribeiro TOBACCO SIEVE OPERATOR.UMBRELLA SUPERVISOR Work Phone: Start: 09-17-2023 Screening mammograph y bi 2-view breast inc cad David Fink MD Work Phone: Start: 09-08-2023 Lipid 1996 panel - S noemi or Plasma Screen Wstr Start: 01-26-2023 Radex elbow 2 views Quinten Fink MD Work Phone: Start: 07-30-2022 End: 07-30-2022 Screening mammography bi 2-view breast inc cad Sunday Cr PA-C Work Phone: Start: 07-24-2022 Lipid 1996 panel - S noemi or Plasma David Fink MD Work Phone: Start: 07-20-2022 Adult depression screening assessment David Fink MD Work Phone: Start: 05-28-2022 Total abdominal hysterectomy No Primary Care Physician Start: 04-23-2022 Radiologic exam ches t 2 views Juanajorge Linton APRN.UMBRELLA SUPERVISOR Work Phone: Start: 03-31-2021 History of placement of stent for coronary artery disease History of coronary artery stent placement Keron Ross RN DIGESTIVE-C Comment on above: TDV-VBC-Hwps LAD w/ 4.5 x 20 mm Veriflex 06/2014; PLE-KFV-Bgqk RCA w/ 4.0 X 22 Orsiro 03/31/21 History of cholecystectomy History of cholecystectomy No Primary Care Physician Plan of Treatment Date Care Activity Detail Author Start: 2045 RSV Immunization for Adults (1 - 1-dose 75+ series) RSV Immunization for Adults (1 - 1-dose 75+ series) [facility] Start: 09-08-2028 Lipid 1996 panel - Serum or Plasma Lipid Screening [facility] Start: 09-08-2028 Lipid panel Lipid Screening [facility] Start: 07-24-2027 Lipid 1996 panel - Serum or Plasma Lipid Screening [facility] Start: 07-24-2027 LIPID SCREEN LIPID SCREEN [facility] Start: 09-23-2026 HPV TESTING HPV TESTING [facility] Start: 09-23-2026 PAP TESTING PAP TESTING [facility] Start: 09-23-2026 Screening for malignant neoplasm of cervix [facility] Start: 09-08-2026 Diabetes Screening Diabetes Screening [facility] Start: 03-20-2026 End: 03-20-2026 Patient encounter procedure 03/20/2026 2:00 PM EDT Office Visit Division of Medical Oncology [address] [place] [address] Christopher Cunningham MD [address] [place] [address] Division of Medical Oncology Start: 01-26-2026 DIABETES SCREEN DIABETES SCREEN [facility] Start: 01-26-2026 Diabetes Screening Diabetes Screening [facility] Start: 09-29-2025 Screening for malignant neoplasm of breast [facility] Start: 07-27-2025 DIABETES SCREEN DIABETES SCREEN [facility] Start: 07-24-2025 DIABETES SCREEN DIABETES SCREEN [facility] Start: 07-16-2025 Influenza vaccination Influenza Vaccine (Season Ended) [facility] Start: 05-03-2025 Direct antiglobulin test.unspecified reagent [Presence] on Red Blood Cells [facility] Start: 05-03-2025 Haptoglobin [Mass/volume] in Serum or Plasma [facility] Start: 05-03-2025 Hepatic function panel [facility] Start: 05-03-2025 Lactate dehydrogenase measurement [facility] Start: 05-03-2025 Reticulocyte count [facility] Start: 05-03-2025 [facility] Start: 04-28-2025 [facility] Start: 04-28-2025 [facility] Start: 04-28-2025 End: 04-28-2025 [facility] Start: 04-28-2025 Oxygen therapy [facility] Start: 04-28-2025 Chemotherapy care management [facility] Start: 04-28-2025 Bacteria identified in Blood by Culture Blood Culture [facility] Start: 04-28-2025 Bacteria identified in Urine by Culture Urine Culture [facility] Start: 04-28-2025 Blood culture Blood Culture [facility] Start: 04-26-2025 [facility] Start: 04-19-2025 Venous catheter care management [facility] Start: 04-19-2025 [facility] Start: 04-02-2025 Anesthesia access central venous circulation ANESTH VASCULAR ACCESS [facility] Start: 04-02-2025 Insj tunneled ctr vad w/subq port age 5 yr/> INSERT TUNNELED CV CATH [facility] Start: 04-02-2025 Patient referral [facility] Work Phone: Start: 04-02-2025 Patient discharge [facility] Start: 03-28-2025 Patient referral [facility] Work Phone: Start: 02-26-2025 Patient referral [facility] Work Phone: Start: 02-09-2025 End: 02-09-2025 Patient encounter procedure 02/09/2025 11:00 AM EDT Office Visit [facility] [place] [address] [place] [id number] Ashok Herbert, TOBACCO SIEVE OPERATOR - UMBRELLA SUPERVISOR [address] [place] [address] [facility] [place] Start: 01-26-2025 End: 01-26-2025 Admission to same day surgery center 01/26/2025 8:30 AM EDT - 01/26/2025 10:[address] [facility] [address] [place] [id number] Darvin Grady MD [address] [place] [address] LAPAROTOMY, EXPLORATORY [89750 (CPT )] [facility] Comment on above: LAPAROTOMY, EXPLORATORY [06930 (CPT )] Start: 01-26-2025 End: 01-26-2025 Exploratory laparotomy celiotomy w/wo biopsy spx LAPAROTOMY, EXPLORATORY Intra-abdominal and pelvic swelling, mass and lump, unspecified site 01/26/2025 8:[address] [facility] Start: 01-26-2025 End: 01-26-2025 Laparoscopy surg w/bx single/multiple LAPAROSCOPY, WITH BIOPSY Intra-abdominal and pelvic swelling, mass and lump, unspecified site 01/26/2025 8:[address] [facility] Start: 01-26-2025 End: 01-26-2025 Laparoscopy w/rmvl adnexal structures LAPAROSCOPIC, SALPINGO-OOPHORECTOMY Intra-abdominal and pelvic swelling, mass and lump, unspecified site 01/26/2025 8:[address] [facility] Start: 01-26-2025 End: 01-26-2025 Lmtd lmphadec staging spx pel&para-aortic LYMPHADENECTOMY, PARA-AORTIC OR PELVIC, LIMITED, FOR STAGING Intra-abdominal and pelvic swelling, mass and lump, unspecified site 01/26/2025 8:[address] [facility] Start: 01-26-2025 Subsequent hospital visit by physician [facility] Start: 01-23-2025 End: 01-23-2025 Admission to establishment 01/23/2025 9:30 AM EDT Pre-Admission Testing [facility] Pre-Admit Testing [address] [place] [id number] Darvin Grady MD [address] [place] [address] [facility] Start: 01-08-2025 [facility] Start: 01-08-2025 Referral to oncologist [facility] Start: 09-29-2024 End: 09-29-2024 Patient encounter procedure 09/29/2024 1:30 PM EST Appointment Mammogram [address] [place] [address] Encounter for screening mammogram for breast cancer [Z12.31] Mammogram Comment on above: Encounter for screening mammogram for br east cancer [Z12.31] Start: 09-17-2024 Mammography Mammogram Screening [facility] Start: 09-17-2024 Screening for malignant neoplasm of breast Mammogram Screening [facility] Start: 09-08-2024 Diabetes mellitus screening Diabetes Screening [facility] Start: 09-08-2024 Hepatitis B surface antibody level LDL Cholesterol [facility] Start: 08-31-2024 Annual PCP Team Chronic Disease Visit Annual PCP Team Chronic Disease Visit [facility] Start: 08-31-2024 Hepatitis B Vaccine (1 of 3 - 19+ 3-dose series) Hepatitis B Vaccine (1 of 3 - 19+ 3-dose series) [facility] Comment on above: Postponed from 1989 (Declined at t his time) Start: 08-31-2024 Hepatitis B Vaccine (1 of 3 - 3-dose series) Hepatitis B Vaccine (1 of 3 - 3-dose series) [facility] Comment on above: Postponed from 1970 (Declined at t his time) Start: 08-31-2024 Pneumococcal vaccination [facility] Comment on above: Postponed from 1976 (Declined at t his time) Start: 08-31-2024 Shingrix Vaccine (1 of 2) Shingrix Vaccine (1 of 2) [facility] Comment on above: Postponed from 2020 (Declined at t his time) Start: 08-31-2024 Urine microalbumin profile DTaP,Tdap,Td Vaccine (1 - Tdap) [facility] Comment on above: Postponed from 1989 (Declined at t his time) Start: 07-16-2024 Covid-19 Vaccine ( season) Covid-19 Vaccine ( season) [facility] Start: 07-16-2024 Covid-19 Vaccine () Covid-19 Vaccine () [facility] Start: 07-16-2024 Influenza vaccination [facility] Start: 05-14-2024 Influenza vaccination Influenza Vaccine (#1) [facility] Comment on above: Postponed from 07/16/2023 (Declined at t his time) Start: 03-01-2024 ANNUAL PCP TEAM CHRONIC DISEASE VISIT ANNUAL PCP TEAM CHRONIC DISEASE VISIT [facility] Start: 02-17-2024 ANNUAL PCP TEAM CHRONIC DISEASE VISIT ANNUAL PCP TEAM CHRONIC DISEASE VISIT [facility] Start: 01-27-2024 ANNUAL PCP TEAM CHRONIC DISEASE VISIT ANNUAL PCP TEAM CHRONIC DISEASE VISIT [facility] Start: 01-27-2024 COVID-19 VACCINE (#1) COVID-19 VACCINE (#1) [facility] Comment on above: Postponed from [birth year]/1971 (Declined at t his time) Start: 11-15-2023 Behavioral Health Screening Behavioral Health Screening [facility] Start: 07-30-2023 Mammography [facility] Start: 07-27-2023 ANNUAL PCP TEAM CHRONIC DISEASE VISIT ANNUAL PCP TEAM CHRONIC DISEASE VISIT [facility] Start: 07-27-2023 HEPATITIS C SCREENING HEPATITIS C SCREENING [facility] Comment on above: Postponed from 1988 (Declined at t his time) Start: 07-24-2023 COLORECTAL CANCER SCREENING COLORECTAL CANCER SCREENING [facility] Start: 07-24-2023 FECAL OCCULT BLOOD FECAL OCCULT BLOOD [facility] Start: 07-24-2023 Hepatitis B surface antibody level LDL CHOLESTEROL [facility] Start: 07-24-2023 Screening for malignant neoplasm of colon [facility] Start: 07-20-2023 Adult depression screening assessment DEPRESSION SCREENING [facility] Start: 07-16-2023 Covid-19 Vaccine () Covid-19 Vaccine ( season) [facility] Start: 07-16-2023 Influenza vaccination [facility] Start: 05-14-2023 Influenza vaccination INFLUENZA (#1) [facility] Comment on above: Postponed from 07/16/2022 (Declined at t his time) Start: 01-25-2023 End: 03-27-2023 Hemoglobin A1c in Blood HGB A1C Lab Routine Hyperglycemia Expected: 01/25/2023, Expires: 03/27/2023 [facility] Work Phone: Comment on above: Expected: 01/25/2023, Expires: 3 Start: 07-27-2022 End: 09-26-2022 Hemoglobin A1c in Blood [facility] Work Phone: Comment on above: Expected: 07/27/2022, Expires: 2 Start: 07-16-2022 Influenza vaccination [facility] Start: 05-29-2022 Introduction of urinary catheter [facility] Work Phone: Start: 05-29-2022 Patient discharge [facility] Work Phone: Start: 05-28-2022 Ambulation therapy management [facility] Work Phone: Start: 05-28-2022 Continuous pulse oximetry [facility] Work Phone: Start: 05-28-2022 Elevation of head of bed [facility] Work Phone: Start: 05-28-2022 Incentive spirometry [facility] Work Phone: Start: 05-28-2022 Measuring intake and output [facility] Work Phone: Start: 05-28-2022 Notification of physician [facility] Work Phone: Start: 05-28-2022 Oxygen therapy [facility] Work Phone: Start: 05-28-2022 Patient education [facility] Work Phone: Start: 05-28-2022 Procedures relating to eating and drinking [facility] Work Phone: Start: 05-28-2022 Taking patient vital signs [facility] Work Phone: Start: 05-28-2022 Wound care [facility] Work Phone: Start: 05-28-2022 [facility] Work Phone: Start: 05-28-2022 Introduction of urinary catheter [facility] Work Phone: Start: 05-28-2022 Following clinical pathway protocol [facility] Work Phone: Start: 05-28-2022 Admission procedure [facility] Work Phone: Start: 05-21-2022 Electrocardiographic procedure [facility] Work Phone: Start: 03-19-2022 End: 05-19-2022 CBC panel - Blood by Automated count CBC Lab Routine Menorrhagia with irregular cycle Expected: 03/19/2022, Expires: 05/19/2022 [facility] Work Phone: Comment on above: Expected: 03/19/2022, Expires: 2 Start: 03-19-2022 End: 05-19-2022 IRON + TIBC IRON + TIBC Lab Routine Menorrhagia with irregular cycle Expected: 03/19/2022, Expires: 05/19/2022 [facility] Work Phone: Comment on above: Expected: 03/19/2022, Expires: 2 Start: 03-19-2022 End: 05-19-2022 Thyrotropin [Units/volume] in Serum or Plasma TSH BLD Lab Routine Menorrhagia with irregular cycle Expected: 03/19/2022, Expires: 05/19/2022 [facility] Work Phone: Comment on above: Expected: 03/19/2022, Expires: 2 Start: 11-15-2021 DEPRESSION ASSESSMENT DEPRESSION ASSESSMENT [facility] Start: 07-16-2021 Influenza vaccination INFLUENZA (#1) [facility] Start: 2020 Screening for malignant neoplasm of lung Lung Cancer Screening [facility] Start: 2020 SHINGRIX VACCINE (1 of 2) SHINGRIX VACCINE (1 of 2) [facility] Start: 2020 Zoster vaccine hzv live for subcutaneous use ZOSTER (SHINGLES) VACCINE (1 of 2) [facility] Start: 2020 Zoster Vaccines (1 of 2) Zoster Vaccines (1 of 2) [facility] Start: 2015 COLOGUARD (FIT-DNA) COLOGUARD (FIT-DNA) [facility] Start: 2015 Colonoscopy COLONOSCOPY [facility] Start: 2015 COLORECTAL CANCER SCREENING COLORECTAL CANCER SCREENING [facility] Start: [address] COLONOGRAPHY [facility] Start: 2015 DIABETES SCREEN DIABETES SCREEN [facility] Start: 2015 FECAL OCCULT BLOOD FECAL OCCULT BLOOD [facility] Start: 2015 LIPID SCREEN LIPID SCREEN [facility] Start: 2015 Screening for malignant neoplasm of colon [facility] Start: 2015 SIGMOIDOSCOPY SIGMOIDOSCOPY [facility] Start: 2010 Lipid panel LIPID SCREENING [facility] Start: 2010 Mammography MAMMOGRAM [facility] Start: 2000 HPV TESTING HPV TESTING [facility] Start: 2000 Screening for malignant neoplasm of cervix [facility] Start: 1991 PAP TESTING PAP TESTING [facility] Start: 1991 Screening for malignant neoplasm of cervix [facility] Start: 1989 DTaP/Tdap/Td Vaccines (1 - Tdap) DTaP/Tdap/Td Vaccines (1 - Tdap) [facility] Start: 1989 Hepatitis B vaccination HEP B VACCINE (1 of 3 - 19+ 3-dose series) [facility] Start: 1989 Hepatitis B Vaccine (1 of 3 - 19+ 3-dose series) Hepatitis B Vaccine (1 of 3 - 19+ 3-dose series) [facility] Start: 1989 Hepatitis B Vaccines (1 of 3 - 19+ 3-dose series) Hepatitis B Vaccines (1 of 3 - 19+ 3-dose series) [facility] Start: 1989 Pneumococcal vaccination PNEUMOCOCCAL VACCINE SERIES (1 of 2 - PCV) [facility] Start: 1989 Pneumococcal Vaccine: 50+ (1 of 2 - PCV) Pneumococcal Vaccine: 50+ (1 of 2 - PCV) [facility] Start: 1989 Pneumococcal Vaccine: 50+ Years (1 of 2 - PCV) Pneumococcal Vaccine: 50+ Years (1 of 2 - PCV) [facility] Start: 1989 Third diphtheria, tetanus and acellular pertussis (DTaP) vaccination TDAP (ADULT) [facility] Start: 1989 Urine microalbumin profile [facility] Start: 1988 Anxiety Screening Anxiety Screening [facility] Start: 1988 Depression Screening Depression Screening [facility] Start: 1988 HEPATITIS C SCREENING HEPATITIS C SCREENING [facility] Start: 1988 Hepatitis C screening Hepatitis C Screening [facility] Start: 1988 HIV SCREENING HIV SCREENING [facility] Start: 1985 HIV screening HIV SCREENING DISCUSSION [facility] Start: 1982 Adult depression screening assessment DEPRESSION SCREENING [facility] Start: 1982 COVID-19 VACCINE (1) COVID-19 VACCINE (1) [facility] Start: 1976 PNEUMOCOCCAL (1 - PCV) PNEUMOCOCCAL (1 - PCV) [facility] Start: 1976 Pneumococcal vaccination [facility] Start: 1975 COVID-19 VACCINE (#1) COVID-19 VACCINE (#1) [facility] Start: 1975 COVID-19 VACCINE (1) COVID-19 VACCINE (1) [facility] Start: 1971 MMR Vaccines (1 of 1 - Standard series) MMR Vaccines (1 of 1 - Standard series) [facility] Start: 01-22-1971 COVID-19 VACCINE (#1) COVID-19 VACCINE (#1) [facility] Start: 1970 HEPATITIS B (1 of 3 - 3-dose series) HEPATITIS B (1 of 3 - 3-dose series) [facility] Start: 1970 Hepatitis B Vaccine (1 of 3 - 3-dose series) Hepatitis B Vaccine (1 of 3 - 3-dose series) [facility] Start: 1970 Hepatitis C screening HEPATITIS C VIRUS SCREENING [facility] Start: 1970 HIV screening HIV Screening [facility] Start: 1970 Lipid panel Lipid Panel [facility] Start: 1970 Screening for malignant neoplasm of colon [facility] Start: 1970 Tetanus vaccination TETANUS [facility] Alanine aminotransfe rase [Enzymatic activity/volume] in Serum or Plasma [facility] Albumin [Mass/volume ] in Serum or Plasma [facility] Alkaline phosphatase [Enzymatic activity/volume] in Serum or Plasma [facility] Bacteria identified in Urine by Culture BACTERIAL CULTURE, URINE Microbiology Routine Burning with urination 12/24/2024 1:56 PM EST [facility] Work Phone: Basic metabolic 2008 panel with ionized calcium - Serum or Plasma [facility] Bilirubin, total measurement [facility] Bilirubin.direct [Mass/volume] in Serum or Plasma [facility] CBC W Auto Different ial panel - Blood [facility] End: 10-25-2025 DBT Breast - bilateral screening [facility] Work Phone: Comment on above: 1 Occurrences starting 09/25/2024 until 10/25/2025 DBT Breast - bilater al screening BRITTANY SCREENING W ALFONSO Radiology Routine Encounter for screening mammogram for breast cancer 09/29/2024 1:34 PM EST [facility] Work Phone: End: 01-27-2024 EMG(NEURO/NI) EMG(NEURO/NI) EMG Routine Numbness 1 Occurrences starting 01/26/2023 until 01/27/2024 [facility] Work Phone: Comment on above: 1 Occurrences starting 01/26/2023 until 01/27/2024 Exploratory laparoto my celiotomy w/wo biopsy spx LAPAROTOMY, EXPLORATORY Intra-abdominal and pelvic swelling, mass and lump, unspecified site [facility] w/rmvl a dnexal structures LAPAROSCOPIC, SALPINGO-OOPHORECTOMY Intra-abdominal and pelvic swelling, mass and lump, unspecified site [facility] Lipid 1996 panel - S noemi or Plasma [facility] Lmtd lmphadec stagin g spx pel&para-aortic LYMPHADENECTOMY, PARA-AORTIC OR PELVIC, LIMITED, FOR STAGING Intra-abdominal and pelvic swelling, mass and lump, unspecified site [facility] Magnesium measurement [facility] Non-Gynecologic Cytology [facility] Work Phone: Comment on above: Release Upon Ordering for 1 Occurrences starting 01/26/2025, 1 completed Patient Education [facility] Work Phone: Patient referral [facility] Work Phone: Serum inorganic phos phate measurement [facility] Tissue exam [facility] Comment on above: Release Upon Ordering for 1 Occurrences starting 01/26/2025 Total protein measurement [facility] Urine culture [facility] End: 08-26-2023 Us soft tissue head & neck real time imge docm US HEAD/NECK SOFT TISSUE OTHER Radiology Routine Neck mass 1 Occurrences starting 07/27/2022 until 08/26/2023 [facility] Work Phone: Comment on above: 1 Occurrences starting 07/27/2022 until 08/26/2023 End: 05-18-2025 XR Chest PA and Lateral XR CHEST 2V FRONTAL/LAT Radiology STAT Acute cough 1 Occurrences starting 04/18/2024 until 05/18/2025 [facility] Work Phone: Comment on above: 1 Occurrences starting 04/18/2024 until 05/18/2025 End: 02-25-2024 XR HAND GENERAL 3V PA/LAT/OBL RIGHT XR HAND GENERAL 3V PA/LAT/OBL RIGHT Radiology Routine Trigger little finger of right hand 1 Occurrences starting 01/26/2023 until 02/25/2024 [facility] Work Phone: Comment on above: 1 Occurrences starting 01/26/2023 until 02/25/2024 XR HAND GENERAL 3V P A/LAT/OBL RIGHT XR HAND GENERAL 3V PA/LAT/OBL RIGHT Radiology Routine Trigger little finger of right hand 01/26/2023 3:43 PM EDT [facility] Work Phone: [facility] c Payers Date Payer Category Payer Self-pay [id number] 2024 Blue Cross Blue Shie ld Managed Care - HMO ANTHEM BLUE CROSS [id number] 2024 Managed Care (unspecified) [facility] [id number] 2022 Blue Cross Blue Shield BLUE ACCE SS PPO [id number] 2022 Unknown [employer]M BLUE ACCE SS PPO [id number] 2022-Present [phone] [id number] [place] [id number] PPO [id number] 2022 Unknown ANTHEM BLUE ACCE SS PPO [id number] 2022-Present [phone] [place] [id number] PPO [id number] 2022 Unknown [id number] 1970 Unknown [id number] Medicaid [id number] Unknown [id number]. 462 Unknown [id number] 12.31.830.1.810544.3.579.2. 462 Unknown [id number] 12.31.830.1.250000.3.579.2. 462 Unknown [id number] 12.31.830.1.586417.3.579.2. 462 Unknown [id number] .[id number]. 462 Unknown [id number] 2.16.840.1.626452.3.579.2. 462 Unknown [id number] 2.16.840.1.017438.3.579.2. 462 Unknown [id number] 2.16.840.1.505842.3.579.2. 462 Unknown [id number] 2.16.840.1.433983.3.579.2. 462 Unknown [id number] 2.16.840.1.500498.3.579.2. 462 Unknown [id number] 2.16.840.1.662369.3.579.2. 462 Unknown [id number] 2.16.840.1.674027.3.579.2. 462 Unknown [id number] 2.16.840.1.984698.3.579.2. 462 Unknown [id number] 2.16.840.1.320635.3.579.2. 462 Unknown [id number] 2.16.840.1.178025.3.579.2. 462 Unknown [id number] 2.16.840.1.185962.3.579.2. 462 Unknown [id number]. 462 Social History Date Type Detail Facility Start: 05-21-2022 End: 12-08-2022 Tobacco smoking status SDIS Tobacco smoking consumption unknown [facility] Work Phone: Start: 1970 Sex Assigned At Not on file [facility] Start: 09-23-2021 End: 04-28-2025 Tobacco smoking status SDIS Smokes tobacco daily [facility] Start: 09-23-2021 End: 03-21-2025 Tobacco use and exposure Smokeless tobacco non-user [facility] Start: 09-25-2021 End: 12-24-2024 Alcohol intake Ex-drinker (finding) [facility] Start: 1970 Sex Assigned At Female [facility] Start: 03-09-2022 End: 11-29-2022 Exposure to SARS-CoV-2 (event) Not sure [facility] Start: 06-09-2019 None [facility] Start: 03-28-2021 Cigarettes [facility] Start: 07-20-2022 End: 01-25-2023 History SDOH Alcohol Frequency 2 [facility] Start: 07-20-2022 End: 01-25-2023 History SDOH Alcohol Std Drinks 1 [facility] Start: 07-20-2022 History SDOH Social Connections Phone 5 [facility] Start: 07-20-2022 End: 01-25-2023 History SDOH Social Connections Living 3 [facility] Start: 07-20-2022 End: 01-25-2023 History SDOH Financial 4 [facility] Start: 01-25-2023 History SDOH Alcohol Std Drinks 0 [facility] Start: 01-24-2023 End: 03-21-2025 History of Social function [facility] Start: 01-24-2023 End: 03-21-2025 Social connection and isolation panel [facility] Do you belong to any clubs or organizations such as spiritism groups, unions, fraternal or athletic groups, or school groups? No [facility] Attends Club or Organization Meetings Not on file [facility] Are you now , , , , never or living with a partner? [facility] How often to you hav e a drink containing alcohol? Never [facility] How hard is it for y ou to pay for the very basics like food, housing, medical care, and heating Not very hard [facility] Do you feel stress - tense, restless, nervous, or anxious, or unable to sleep at night because your mind is troubled all the time - these days [OSQ] Rather much [facility] (I/We) worried edmar er (my/our) food would run out before (I/we) got money to buy more. Never true [facility] Start: 09-30-2021 Gender identity Identifies as female gender (finding) [facility] Start: 09-30-2021 Sexual orientation Heterosexual ([place] de [place]ant[place]) [facility] Start: 11-15-1985 History of tobacco use Cigarette Smo ker [facility] Start: 01-17-2025 End: 03-21-2025 Alcoholic beverage intake Lifetime non-drinker (finding) [facility] Start: 01-16-2025 End: 02-27-2025 Sex Female (finding) [facility] Start: 04-15-1986 Tobacco smoking stat us NHIS Occasional tobacco smoker [facility] Start: 03-21-2025 Tobacco Comment I am slowly qu itting. Down from a pack a day to less than half a pack a day. [facility] NEGATED: Highlighted row Not [facility] Medical Equipment Procedure Code Equipment Code Equipment Origin al Text Equipment Identifier Dates Insertion, vascular access port [id number]) Vascular port/catheter [id number] FDA Start: 04-02-2025 Hysterectomy, total, abdominal Plant polysaccharide haemostatic agent, bioabsorbable [id number] FDA Start: 05-28-2022 Goals Date Patient Goal Desired Activity /State Functional Status Date Assessment Result Facility 05-29-2022 Functional status Ambulates [facility] Work Phone: Mental Status Date Assessment Result Facility 04-28-2025 Cognitive function Level Of Cons ciousness Awake;Alert;Appropriate;Follow s Commands [facility] Work Phone: 04-02-2025 Cognitive function Voice/Name [facility] Work Phone: 05-29-2022 Cognitive function Level Of Cons ciousness Awake;Alert;Appropriate;Follow s Commands [facility] Work Phone: 05-28-2022 Cognitive function Voice/Name [facility] Work Phone: 05-28-2022 Cognitive function Memory Description Int act [facility] Work Phone: Clinical Notes 03-31-2021 to 04-28-2025 Note Date & Type Note Facility 04-28-2025 Discharge summary [facility] 04-28-2025 Radiology Diagnostic study note [facility] Imaging Services [address] [place] [address] Chest PA and Lateral MR#: [id number] Acct: [id number] Name: UZMA MCDONALD CADEN Rep #: [id number] : 1970 F 54 From: Lisette Mcdowell MD PCP: Dr. David Fink MD Status: PRE E R Study:Chest PA and Lateral Date of Exam: 04/28/25 Exam# [id number] Ordering Dr: Provider ,Ed P. PROCEDURE: CHEST PA AND LATERAL 04/28/2025 REASON FOR EXAM: NEUTROPENIC FEVER TECHNIQUE: CHEST PA AND LATERAL COMPARISON: Chest radiograph 04/02/2025. FINDINGS: Hardware: Stable right IJ port with catheter tip terminating in the right atrium. Heart: The heart size is normal. Mediastinum: The mediastinal contour is stable. Lungs: No focal consolidation, pleural effusion or pneumothorax. Bones: Degenerative changes are identified within the thoracic spine. RAD/Chest PA and Lateral IMPRESSION: NO SIGNIFICANT CHANGE SINCE THE PRIOR EXAM. Reading Location: [id number] CC: Dr. David Fink MD; ED PHYSICIAN PROVIDER ~ [employer] Operator: Signed [facility] 04-28-2025 Discharge summary Note Date/Time April 28, 2025 11:37pm [facility] Medical Records Department [address] [place] [id number] Emergency Department Summary 04/28/25 MR#: [id number] Acct: [id number] Name: UZMA MCDONALD CADEN Rep #:[id number] : 1970 54 From: Girish Hathaway PCP: Dr. David Fink MD Status:REG E R Location: ED HPI History of Present Illness Chief Complaint: Fever Informant: patient and spouse/S.O. Narrative Narrative: From oncology note dated 26 April 2025: 54-year-old female with incidental finding of a [...] showed no malignant cells. Was seen at [facility] sarcoma clinic by Dr. Cunningham in March 2025 who recommended standard adjuvant chemotherapy with gemcitabine Taxotere for 6 cycles followed by maintenance pazopanib plus letrozole indefinite/till progression. Started adjuvant gemcitabine and Taxotere April 19, 2025. Patient had chemotherapy on April. She has been doing well. This evening noted a fever and came to the emergency department. Temperature here onmy examination is 100.8. She has not had any antipyretics. She states she otherwise feels pretty well other than she has body aches. She denies any urinary symptoms no cough. No oral pharyngeal symptoms. No rashes. She has a right chest port which she states is been doing well. She does not feel short of breath and has no abdominal pain. No lower extremity swelling. [facility] Medical History Encounter for education Cancer Back [...] 50 mg PO QHS 11/29/23 Unknown History lidocaine-prilocaine 2.5 %-2.5 % 1 applic topical ONCE PRN port 04/04/25 Unknown Rx topical cream access 30 days #30 grams ondansetron 8 mg disintegrating 8 mg PO Q8H PRN nausea and 04/04/25 Unknown Rx tablet vomiting #30 tabs prochlorperazine maleate 10 mg 10 mg PO Q6H PRN nausea and 04/04/25 Unknown Rx tablet vomiting #30 tabs dexamethasone 4 mg tablet 8 mg (2 x 4 mg) PO .COMPLEX #72 04/05/25 Unknown Rx tabs Allergy/AdvReac Type Severity Reaction Status Date / Time No Known Allergies Allergy Verified 04/28/25 19:29 Family History Father Kidney disease Aunt Cancer paternal Other Heart disease Surgical History H/O pelvic mass (~01/26/25) History [...] Number of servings: 2 ROS ROS ED Constitutional Constitutional ED: Reports fever(s); Denies chills or weight loss Eyes Eyes: Denies change in vision or diplopia ENT ENT ED: Denies ear pain, rhinorrhea or sore throat Cardiovascular Cardiovascular: Denies chest pain, orthopnea, palpitations or racing heartbeat Respiratory/Chest Respiratory/Chest: Denies cough, dyspnea or orthopnea Gastrointestinal Gastrointestinal: Denies abdominal pain, diarrhea, nausea or vomiting Genitourinary Genitourinary ED: Denies dysuria, hematuria or urinary frequency Musculoskeletal Musculoskeletal: Reports arthralgias and myalgias Integumentary Denies abscess or rash Neurologic Neurologic: Denies headache(s) or weakness Psychiatric Psychiatric: Denies anxiety, depression, suicidal ideation or suicidal thoughts Endocrine Endocrinology: Denies polydipsia, polyphagia or polyuria Allergic/Immunologic Allergic/Immunologic ED: Denies mouth swelling, tongue swelling or urticaria EXAM Physical Exam Const Vital Signs: 04/28/25 19:29 04/28/25 19:35 04/28/25 20:31 Temperature 99.7 F H 99.7 F H Temperature Source Oral Oral Pulse Rate 103 H 103 H Respiratory Rate 16 18 Respiratory Effort Normal Non-Labored Respiratory Pattern Normal Blood Pressure 116/66 116/66 Blood Pressure Mean 82 82 Pulse Ox 97 97 Oxygen Delivery Method Room Air Room Air 04/28/25 21:00 04/28/25 22:00 04/28/25 22:59 Temperature 100.7 F H 100.2 F H Temperature Source Oral Oral Pulse Rate 86 88 Respiratory Rate 16 16 Respiratory Effort Respiratory Pattern Blood Pressure 111/65 127/65 H Blood Pressure Mean 80 85 Pulse Ox 97 99 Oxygen Delivery Method Room Air Room Air Room Air 04/28/25 22:59 Temperature 99.7 F H Temperature Source Oral Pulse Rate 88 Respiratory Rate 18 Respiratory Effort Respiratory Pattern Blood Pressure 111/81 H Blood Pressure Mean 91 Pulse Ox 99 Oxygen Delivery Method Room Air Positive well nourished and well developed General Appearance ED: well developed HEENT Reports normocephalic, head/scalp atraumatic and moist mucous membranes HEENT Narrative: No thrush or mucositis noted. No erythema is noted. Eyes PERRL and EOMs intact bilaterally Neck no lymphadenopathy, supple and no JVD Resp normal respiratory effort and clear to auscultation bilaterally Cardio regular rate, regular rhythm and no murmurs GI normal to inspection, nondistended, normoactive bowel sounds and non-tender Palpation: soft Back/Spine no CVA tenderness and normal ROM Extremity normal to inspection General Extremety ED: Negative for edema General Extremity: Negative for edema Neuro oriented x3 and CN's II-XII intact bilaterally Sensorium / Orientation: alert Motor Exam: strength 5/5 throughout Psych mental status grossly normal Mood & Affect: Negative for depressed or tearful Skin no rashes or lesions noted and no wounds MDM MDM MDM Narrative Medical decision making narrative: Differential diagnosis includes but not limited to chemotherapy-induced fever neutropenic fever UTI pneumonia bacteremia electrolyte abnormalities PREET anemia My independent interpretation the chest x-ray is no acute process. Radiology concurs. White count 4.3 no bands 81.3 neutrophils hemoglobin 13.1 platelet count of 67. INR is 1.2 PTT 29.8 BMP shows a CO2 of 18.6 anion gap of 11 BUN 11creatinine 0.57 glucose of 130 lactic acid less than 1 normal LFTs urinalysis greater than 100 red cells greater than 100 white cells 5-10 squamous cells 2+ bacteria positive leukocyte Estrace negative nitrates. Blood and urine cultureswere sent. The patient received Tylenol for fever as well as IV fluids. After urine was obtained the patient received a dose of ceftriaxone. History & Record Review Discussion w/independent historian: Patient and Significant other Additional record(s) reviewed:: Prior outpatient record and Prior labs Lab Data Attestation: I reviewed the patient's lab results. Labs: Laboratory Results - last 24 hr 04/28/25 04/28/25 19:50 21:55 WBC 4.3 L RBC 4.54 Hgb 13.1 Hct 37.8 MCV 83.3 MCH 28.9 MCHC 34.7 RDW Std Deviation 39.2 RDW Coeff of Estella 13.0 Plt Count 67 L MPV 10.6 Immature Gran % (Auto) 0.500 Neut % (Auto) 81.3 H Lymph % (Auto) 17.3 L Fisher % (Auto) 0.5 Eos % (Auto) 0.2 Baso % (Auto) 0.2 Absolute Neuts (auto) 3.5 Absolute Lymphs (auto) 0.75 L Nucleated RBC % 0 Platelet Estimate MOD DEC RBC Morphology NORM C+C PT 15.3 H INR 1.2 APTT 29.8 Sodium 132 L Potassium 4.0 Chloride 103 Carbon Dioxide 18.6 L Anion Gap 11 BUN 11 Creatinine 0.57 L Estim Creat Clear Calc 136.93 Est GFR (MDRD) Non-Af 108 BUN/Creatinine Ratio 18.8 Glucose 130 H Lactic Acid < 1.0 Calcium 8.4 Phosphorus 2.1 L Magnesium 1.8 Total Bilirubin 1.02 AST 21 ALT 18 Alkaline Phosphatase 93 Total Protein 6.6 Albumin 3.4 L Globulin 3.2 Albumin/Globulin Ratio 1.1 Urine Color Mirna Urine Clarity Sl. Cloudy Urine pH 7.0 Ur Specific [place] 1.010 Urine Protein 100 H Urine Glucose (UA) Normal Urine Ketones Negative Urine Occult Blood 250 H Urine Nitrite Negative Urine Bilirubin Negative Urine Urobilinogen 1 H Ur Leukocyte Esterase 100 H Urine RBC > 100 SEEN Urine WBC >100 SEEN Ur Squamous Epith Cells 5-10 SEEN Urine Bacteria 2+ Urine Mucus 3+ Radiography Diagnostic Testing: Clinical Impression(s) from Imaging Studies Chest X-Ray 04/28/25 20:03 IMPRESSION: NO SIGNIFICANT CHANGE SINCE THE PRIOR EXAM. Reading Location: [facility] Discharge Plan Triage Chief Complaint: Fever ED Provider: Girish Mcgarry Dx/Rx/DC Orders Clinical Impression: UTI (urinary tract infection), Acute febrile illness, Immunocompromised patient Prescriptions: No Action sertraline [Zoloft] 50 mg tablet 50 mg PO QHS famotidine [Pepcid] 20 mg tablet 20 mg PO BID atorvastatin 80 mg tablet 80 mg PO QHS Qty: 90 3RF lidocaine-prilocaine 2.5-2.5 % cream 1 applic topical ONCE PRN (Reason: port access) 30 Days Qty: 30 2RF ondansetron 8 mg tablet,disintegrating 8 mg PO Q8H PRN (Reason: nausea and vomiting) Qty: 30 1RF prochlorperazine maleate 10 mg tablet 10 mg PO Q6H PRN (Reason: nausea and vomiting) Qty: 30 2RF dexamethasone 4 mg tablet 8 mg PO .COMPLEX Qty: 72 0RF Rx Instructions: 8 mg orally; twice daily ONLY the day before, the day of and the day after chemotherapy aspirin 81 MG tablet,chewable 81 mg PO DAILY@0800 Primary Care Provider: David Fink Referrals: David Fink MD [Primary Care Provider] - Print Language: Wallisian What to do if you have Problems For any increased pain, shortness of breath, bleeding, nausea or vomiting, chestpain, or any unexpected problems, contact your Primary Care Provider. Call [facility] ([phone]) or report to the closest Emergency Room. Call 911 if necessary. 04/28/25 [id number] <Electronically signed by Girish Mcgarry DO> Cosigner Signature (if applicable): CC: Dr. David Fink MD ~ Signed [facility] Work Phone: 1(764) 709-323006-12-2025 [facility] [address] [place] [address] OFFICE VISIT Date of Service: 04/26/25912 MR#: [id number] Acct: [id number] Name: UZMA MCDONALD Rep #: [id number] : 1970 From: Imani fair MD Age/Sex: 54/F Location[facility] Status: Signed HPI Subjective Date of Service 04/26/25 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 The patient was seen in [facility] emergency room January 08, 2025 with urinary [...] activity and tumor cell necrosis. IHC at [facility] positive for SMA, negative for desmin, STAT6, pancytokeratin, S100 and CD34. Additional IHC done at [facility] showed negative Desmin, negative Caldesmon, ER diffuse [...] omentectomy. * Docetaxel gemcitabine April 19, 2025 [facility] Medical History Encounter for education Cancer Back [...] no addt'l complaints, except as documented and otherDetails: Minimal nausea not even enough to take [...] Central Venous Access: Yes Port/PICC: Port CBC, BMP April 26, 2025 reviewed in EMR Exam [...] no focal motor deficits Coordination / Balance: qeclbn-lg-vlfc test normal Speech: speech normal Gait (Neuro): [...] showed no malignant cells. Was seen at [facility] sarcoma clinic by Dr. Cunningham in March [...] discussed with patient . Imani Persaud MD Office Services Specialist, [facility] Divisions of Medical Oncology & Hematology Department of Internal Medicine [address] [address] This note was generated using a voice [...] in the past year?: No 04/26/25 0937 karen VALDEZ> Date _ Imani Persaud MD Cosigner Signature: Date (if applicable) CC: ~ [facility]06-12-2025 Progress note Author Imani Persaud [facility] Note Date/Time April 26, 2025 9:37 am [place] [id number] OFFICE VISIT Date of Service: 04/26/25912 MR#: [id number] Acct: [id number] Name: UZMA MCDONALD Rep #: [id number] : 1970 From: Imani fair MD Age/Sex: 54/F Location: [facility] Status: Signed HPI Subjective Date of Service 04/26/25 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 The patient was seen in [facility] emergency room January 08, 2025 with urinary [...] activity and tumor cell necrosis. IHC at [facility] positive for SMA, negative for desmin, STAT6, pancytokeratin, S100 and CD34. Additional IHC done at [facility] showed negative Desmin, negative Caldesmon, ER diffuse [...] omentectomy. * Docetaxel gemcitabine April 19, 2025 [facility] Medical History Encounter for education Cancer Back [...] Central Venous Access: Yes Port/PICC: Port CBC, BMP April 26, 2025 reviewed in EMR Exam [...] no focal motor deficits Coordination / Balance: kyxikm-wj-odwr test normal Speech: speech normal Gait (Neuro): [...] showed no malignant cells. Was seen at [facility] sarcoma clinic by Dr. Cunningham in March [...] discussed with patient . Imani Persaud MD Office Services Specialist, [facility] Divisions of Medical Oncology & Hematology Department of Internal Medicine [facility] [place] [address] This note was generated using a voice [...] jones MD> Date _ Imani Persaud MD [facility] Signature: Date (if applicable) CC: ~ [facility] Work Phone: [phone]) 272-485906-05-2025 Progress [facility] [place] [address] OFFICE VISIT Date of Service: 04/19/25905 MR#: [id number] Acct: [id number] Name: UZMA MCDONALD CADEN Rep #: [id number] : 1970 From: Imani fair MD Age/Sex: [...] May 2022. The patient was seen in [facility] emergency room January 08, 2025 with urinary [...] activity and tumor cell necrosis. [facility], negative for desmin, STAT6, pancytokeratin, S100 and CD34. Additional IHC done at [facility] showed negative Desmin, negative Caldesmon, ER diffuse [...] omentectomy. * Docetaxel gemcitabine April 19, 2025 [facility] Medical History Encounter for education Cancer Back [...] no focal motor deficits Coordination / Balance: rurejx-ui-ycba test normal Speech: speech normal Gait (Neuro): [...] showed no malignant cells. Was seen at [facility] sarcoma clinic by Dr. Cunningham in March [...] discussed with patient . Imani Persaud MD Office Services Specialist, [facility] Divisions of Medical Oncology & Hematology Department of Internal Medicine [address] [address] This note was generated using a voice recognition system software. Although itwas reviewed by the author prior to finalization, it may still contain incorrectwords, spelling, and punctuation that were not noted when reviewing prior to saving. If a clinically significant typo or inaccurately typed phrase is noted, please notify the author. 04/19/25 0941 karen VALDEZ> Date _ Imani العراقي Signature: Date (if applicable) CC: ~ [facility]05-21-2025 [place] [address] OFFICE VISIT Date of Service: 04/04/25 1408 MR#: [id number] Acct: [id number] Name: KAVEHMICHAELUZMA Rep #: [id number] : 1970 From: Delmis Roberts ch RN DIGESTIVE RN DIGESTIVE-C Age/Sex: 54/F Location: [facility] Status: Signed HPI Subjective Date of Service 04/04/25 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 The patient was seen in [facility] emergency room January 08, 2025 with urinary [...] activity and tumor cell necrosis. IHC at [facility] positive for SMA, negative for desmin, STAT6, pancytokeratin, S100 and CD34. Additional IHC done at [facility] showed negative Desmin, negative Caldesmon, ER diffuse [...] by way of spouse and adult children. [facility] Medical History (Updated 04/04/25 @ 15:35 by Delmis Corral NP, RN DIGESTIVE-C) Encounter for education Cancer Back pain Shortness [...] showed no malignant cells. Was seen at [facility] sarcoma clinic by Dr. Cunningham in March [...] the past year?: No 04/04/25 1537 h RN DIGESTIVE RN DIGESTIVE-C> Date _ Delmis Corral NP RN DIGESTIVE-C Cosigner Signature: Date (if applicable) CC: ~ [facility]05-21-2025 Progress note Author Delmis Corral [facility] Note Date/Time April 04, 2025 3:37p m [facility] [address] [address] OFFICE VISIT Date of Service: 04/04/25 1408 MR#: [id number] Acct: [id number] Name: UZMA MCDONALD Rep #: [id number] : 1970 From: Delmis Roberts RN DIGESTIVE RN DIGESTIVE-C Age/Sex: 54/F [facility] [...] May 2022. The patient was seen in [facility] emergency room January 08, 2025 with urinary [...] activity and tumor cell necrosis. IHC at [facility] positive for SMA, negative for desmin, STAT6, pancytokeratin, S100 and CD34. Additional IHC done at [facility] showed negative Desmin, negative Caldesmon, ER diffuse [...] by way of spouse and adult children. [facility] Medical History (Updated 04/04/25 @ 15:35 by Delmis Corral RN DIGESTIVE, RN DIGESTIVE-C) Encounter for education Cancer Back pain Shortness [...] showed no malignant cells. Was seen at [facility] sarcoma clinic by Dr. Cunningham in March [...] No 04/04/25 1537 <Electronically signed by Delmis ALVES> Date _ Delmis ALVES Cosigner Signature: Date (if applicable) CC: ~ [facility] Work Phone: 1(591) 172-953905-19-2025 Consult note [facility] Medical Records Department [address] [place] [address] Anesthesia Postop Eval II 04/02/25 1305 MR#: [id number] Acct: [id number] Name: UZMA MCDONALD CADEN Rep #:[id number] : 1970 54 From: Ck Cotto MD PCP: Dr. David Fink MD Status:REG S DC Y Race: C Location: [place] [address]- Anesthesia Postop Eval I Sum Postop Eval Completion status Anesthesia document: Postop Eval 1 completed: Yes Anesthesia Postop Eval I Summary Anesthesia Postop Eval I Summary: Anesthesia Postop Eval I: Assessment Summary Airway patent Yes 04/02/25 12:06 JOURNEYMAN MOLDER.HBARR Spontaneous unlabored Yes 04/02/25 12:06 JOURNEYMAN MOLDER.HBARR respirations Mental status Awake 04/02/25 12:06 JOURNEYMAN MOLDER.HBARR nausea No 04/02/25 12:06 JOURNEYMAN MOLDER.HBARR Vomiting No 04/02/25 12:06 JOURNEYMAN MOLDER.HBARR Anesthesia Postop Eval I: Fluid Summary Crystalloid volume administer 500 04/02/25 12:06 JOURNEYMAN MOLDER.HBARR (ml) Colloids volume administered ( ml) Blood Product volume administered (ml) Total IV fluid infused 500 04/02/25 12:06 JOURNEYMAN MOLDER.HBARR Anesthesia Postop Eval I: Summary Notes Anesthesia Complication No 04/02/25 12:06 JOURNEYMAN MOLDER.HBARR Anesthesia Complication Comment: Post-operative progress note Anesthesia: Postop Eval II Evaluation Mental status: Awake Pain Level: 0 nausea: No Vomiting: No 04/02/25 1305 > Date _ Ck Cotto MD Cosigner Signature: Date CC: ~ Signed [facility]05-19-2025 Consult note Author Laquita Melendez [facility] Note Date/Time April 02, 2025 12:06 pm [facility] Medical Records Department [address] [place] [address] Anesthesia Postop Eval I 04/02/25 1153 MR#: [id number] Acct: [id number] Name: UZMA MCDONALD Rep #:[id number] : 1970 54 From: Laquita Melendez CRNA PCP: Dr. David Fink MD Status:REG S DC Y Race: C Location: [place] [address] Anesthesia: Postop Eval I Current Vital Signs [...] Laquita ALDRIDGE NA> Date _ Laquita Melendez JOURNEYMAN MOLDER Cosigner Signature: Date CC: ~ Signed [facility] Work Phone: [phone]) 665-193905-19-2025 History and physical note Author Theo Richard [facility] Note Date/Time April 02, 2025 11:20 am [facility] Medical Records Department [address] [facility] [place] [address] History & Physical Exam 04/02/25 1120 MR#: [id number] Acct: [id number] Name: UZMA MCDONALD CADEN Rep #:[id number] : 1970 54 From: Theo villegas MD PCP: Dr. David Fink MD Status:REG S ND Location: [place] [address] History and Physical Date of Admission: 04/02/25 [...] willing to proceed Theo Richard MD Pager: [facility] [address] [place] [address], [address] [place] [address] Office: I have examined the patient and the H&P has been reviewed. There are no clinicalchanges since date of exam. 04/02/25 1120 <Electronically signed by Theo Richard MD> Cosigner Signature (if applicable): CC: Dr. Theo Richard MD; Dr. David Fink MD~ Signed [facility] Work Phone: 1(706) 628-312905-19-2025 Radiology Diagnostic study note [facility] Imaging Services [address] [place], [place] [address] CXR for Line Placement MR#: [id number] Acct: [id number] Name: UZMA MCDONALD Rep #: [id number] : 1970 F 54 From: Jake Canales MD PCP: Dr. David Fink MD Status: REG S DC Study:CXR for Line Placement Date of Exam: 04/02/25 Exam# [id number] Ordering Dr: Theo Carmichael MD PROCEDURE: CXR [...] is upper limits of normal. Reading Location: [facility] CC: Dr. Theo Richard MD; Dr. David Fink MD ~ [employer] Operator: Signed [facility]05-19-2025 Discharge summary [facility] Medical Records Department [address] [place] [address] Instructions for Home/Discharge Instructions 04/02/25 1218 MR#: [id number] Acct: [id number] Name: UZMA MCDONALD Rep #:[id number] : 1970 54 From: Theo villegas [...] to schedule 2 week follow up appointment. [phone] Test Results: Test results from this visit will be discussed in further detail at your follow- up appointment, if applicable. Discharge Plan Admission Attending Provider: Theo Richard Primary Care Provider: David Fink Instructions Print Language: Wallisian Discharge Orders/Prescriptions Prescriptions: No Action sertraline [Zoloft] [...] CC: Dr. David Fink MD ~ Signed [facility]05-19-2025 Procedure note [facility] Medical Records Department [address] [place] [address] Operative Report 04/02/25 1216 MR#: [id number] Acct: [id number] Name: UZMA MCDONALD Rep #:[id number] : 1970 54 From: Theo villegas MD PCP: Dr. David Fink MD Status:REG S DC Location: [place] [address] Operative Report (Standard) Operative Information Date of Procedure: 04/02/25 Pre-Operative Diagnosis: Need for vascular access for chemotherapy Post-Operative Diagnosis: Same Surgery/Procedure Performed: Ultrasound and fluoroscopy guided right chest port placement utilizingright IJ planetarium sky show technician: No Type of Anesthesia: Local MAC RN [...] apply: Implanted device Implanted device details: 8 [place] PowerPort Estimated Blood Loss: 5 Specimen collected: [...] Richard MD; Dr. David Fink MD~ Signed [facility]05-19-2025 Consult note [facility] Medical Records Department [address] [place] [address] Anesthesia Postop Eval I 04/02/25 1153 MR#: [id number] Acct: [id number] Name: UZMA MCDONALD Rep #:[id number] : 1970 54 From: Laquita Melendez CRNA PCP: Dr. David Fink MD Status:REG S DC Y Race: C Location: [place] [address] Anesthesia: Postop Eval I Current Vital Signs [...] CRNA Cosigner Signature: Date CC: ~ Signed [facility]05-19-2025 Consult note Author Ck Cotto [facility] Note Date/Time April 02, 2025 9:51a m [facility] Medical Records Department [address] [place] [address] Pre-Anesthesia Evaluation 04/02/25 0951 MR#: [id number] Acct: [id number] Name: UZMA MCDONALD Rep #:[id number] : 1970 54 From: Ck Cotto MD PCP: Dr. David Fink MD Status:REG S DC Y Race: C Location: [facility] ASA Classification* ASA Classification ASA Classification: 3 [...] POSS LEFT Anesthesia History Anesthesia History - ediscovery project manager: Anesthesia History - ediscovery project manager Hx Hospitalization No 03/28/25 14:20 Any Problems [...] take am of surgery PONV PONV - ediscovery project manager: PONV - ediscovery project manager Female Yes 03/28/25 14:20 HX of Motion [...] 03/30/25 08:51 Respiratory Assessment Respiratory Assessment - ediscovery project manager: Respiratory Tract Infection Hx - ediscovery project manager Hx Respiratory Tract Infection No 03/28/25 14:20 STOP Sleep Apnea STOP Sleep Apnea - ediscovery project manager: STOP Sleep Apnea - ediscovery project manager Hx Hypertension Yes 03/28/25 14:20 Hx Sleep [...] Tobacco Use History Tobacco Use History - ediscovery project manager: Tobacco Use History - ediscovery project manager Tobacco Use Cigarettes 03/28/21 15:34 Smoking Status Current every day smoker 03/28/25 14:20 Hx Tobacco Use Yes 03/28/25 14:20 Years Smoking Packs Smoked per Day Smoking Cessation Date was within the last 15 years Hx Smoking Cessation Date Hx Smoking Cessation Counseling Hematologic Medial History Hematologic Hx - ediscovery project manager: Hematologic Medical Hx - category consultant Hx of Blood Transfusion Yes 03/28/25 14:20 [...] 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 History - ediscovery project manager: /Reproductive Hx- ediscovery project manager Hx Now No 03/28/25 14:20 Gestational Age (in weeks): EDC: Hx Hx Para Hx Section SAB No 03/28/25 14:20 Active Medications Active Medications: Current Medications Generic Name Dose Route Start Last Admin Trade Name Freq PRN Reason Stop Dose Admin Cefazolin Sodium 2 gm/ Sodium 110 mls @ 150 mls/hr 04/02/25 11:30 Chloride IV 04/02/25 12:13 INTRAOP ONE [facility] Medical History Cancer Back pain Shortness of [...] and no additional complaints, except as documented. 04/02/25 0978 <Electronically signed by Ck Cotto MD > Date _ Ck Cotto MD Cosigner Signature: Date CC: ~ Signed [facility] Work Phone: [phone]) 292-112405-19-2025 History and physical note [facility] Medical Records Department [address] [place], [place] [address] [place] [address] History & Physical Exam 04/02/25 1120 MR#: [id number] Acct: [id number] Name: UZMA MCDONALD Rep #:[id number] : 1970 54 From: Theo villegas MD PCP: Dr. David Fink MD Status:REG S ND Location: [place] [address] History and Physical Date of Admission: 04/02/25 [...] 80 mg PO QHS cholesterol #90 tabs 01/15/ 24 05/12/25 Rx famotidine 20 mg tablet (Pepcid) 20 [...] General: cooperative Orientation: alert and oriented x3 [facility] Head: normal to inspection Neck Neck: normal [...] willing to proceed Theo Richard MD Pager: [facility] [address] [place] [address], [address] [place] [address] Office: I have examined the patient and the H&P has been reviewed. There are no clinicalchanges since date of exam. 04/02/25 1120 Cosigner Signature (if applicable): CC: Dr. Theo Richard MD; Dr. David Fink MD~ Signed [facility]05-19-2025 [facility] Medical Records Department [address] [place] [address] History Physical Exam 04/02/25 1120 MR#: [id number] Acct: [id number] Name: UZMA MCDONALD Rep #: [id number] : 1970 54 From: Theo Richard MD PCP: Dr. David Fink MD Status:REG [facility] Location: [place] [address] History and Physical Date of Admission: 04/02/25 [...] chest Resp Effort Ins (more content not included)...[facility]05-19-2025 Consult note [facility] Medical Records Department [address] [place] [address] Pre-Anesthesia Evaluation 04/02/25 0951 MR#: [id number] Acct: [id number] Name: UZMA MCDONALD Rep #:[id number] 2 : 1970 54 From: Ck Cotto MD PCP: Dr. David Fink MD Status:REG S DC Y Race: C Location: [facility] ASA Classification* ASA Classification ASA Classification: 3 [...] POSS LEFT Anesthesia History Anesthesia History - ediscovery project manager: Anesthesia History - ediscovery project manager Hx Hospitalization No 03/28/25 14:20 Any Problems [...] take am of surgery PONV PONV - ediscovery project manager: PONV - ediscovery project manager Female Yes 03/28/25 14:20 HX of Motion [...] 03/30/25 08:51 Respiratory Assessment Respiratory Assessment - ediscovery project manager: Respiratory Tract Infection Hx - ediscovery project manager Hx Respiratory Tract Infection No 03/28/25 14:20 STOP Sleep Apnea STOP Sleep Apnea - ediscovery project manager: STOP Sleep Apnea - ediscovery project manager Hx Hypertension Yes 03/28/25 14:20 Hx Sleep [...] Tobacco Use History Tobacco Use History - ediscovery project manager: Tobacco Use History - ediscovery project manager Tobacco Use Cigarettes 03/28/21 15:34 Smoking Status Current every day smoker 03/28/25 14:20 Hx Tobacco Use Yes 03/28/25 14:20 Years Smoking Packs Smoked per Day Smoking Cessation Date was within the last 15 years Hx Smoking Cessation Date Hx Smoking Cessation Counseling Hematologic Medial History Hematologic Hx - ediscovery project manager: Hematologic Medical Hx - category consultant Hx of Blood Transfusion Yes 03/28/25 14:20 [...] 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 History - ediscovery project manager: /Reproductive Hx- ediscovery project manager Hx Now No 03/28/25 14:20 Gestational Age [...] and no additional complaints, except as documented. 04/02/25 0951 > Date _ Ck Cotto MD [facility] Signature: Date CC: ~ Signed [facility]05-14-2025 Progress [facility] [address] [place] [address] OFFICE VISIT Date of Service: 03/28/25 1532 MR#: [id number] Acct: [id number] Name: UZMA MCDONALD CADEN Rep #: [id number] : 1970 From: Imani fair MD Age/Sex: 54/F Location: [facility] Status: Signed HPI Subjective Date of Service 03/28/25 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 The patient was seen in [facility] emergency room January 08, 2025 with urinary [...] activity and tumor cell necrosis[facility], negative for desmin, STAT6, pancytokeratin, S100 and CD34. Additional IHC done at [facility] showed negative Desmin, negative Caldesmon, ER diffuse [...] mm left UVJ/posterior urinary bladder wall calculus. [facility] Medical History (Updated 03/28/25 @ 16:14 by [...] showed no malignant cells. Was seen at [facility] sarcoma clinic by Dr. Cunningham in March [...] and her . Follow-up with cycle 1. mIani Persaud MD Office Services Specialist, [facility] Divisions of Medical Oncology & Hematology Department of Internal Medicine [address] [address] This note was generated using a voice [...] in the past year?: No 03/28/25 1615 [facility] > Date _ Imani Persaud MD Cosigner Signature: Date (if applicable) CC: Dr. David Fink MD ~ [facility]05-14-2025 Progress note Author Imani Persaud [facility] Note Date/Time March 28, 2025 4:15p m [facility] [place] [address] OFFICE VISIT Date of Service: 03/28/25 1532 MR#: [id number] Acct: [id number] Name: KAVEHKRISTINA RODRIGUEZTIMOTEO NEGRETE Rep #: [id number] : 1970 From: Imani fair MD Age/Sex: [...] May 2022. The patient was seen in [facility] emergency room January 08, 2025 with urinary [...] activity and tumor cell necrosis. [facility] S[facility], negative for desmin, STAT6, pancytokeratin, S100 and CD34. Additional IHC done at [facility] showed negative Desmin, negative Caldesmon, ER diffuse [...] mm left UVJ/posterior urinary bladder wall calculus. [facility] Medical History (Updated 03/28/25 @ 16:14 by [...] showed no malignant cells. Was seen at [facility] sarcoma clinic by Dr. Cunningham in March [...] Follow-up with cycle 1. Imani Persaud MD Office Services Specialist, [facility] Divisions of Medical Oncology & Hematology Department of Internal Medicine [place] [address] This note was generated using a voice [...] fallen in the past year?: No 03/28/25 9541 <Electronically signed by Imani jones MD> Date _ Imani Persaud MD Cosigner Signature: Date (if applicable) CC: Dr. David Fink MD ~ [facility] Work Phone: 1(929) 336-728405-13-2025 NoteReceived is a request for second opinion consultation by Dr. Christopher Cunningham. [facility] slide review Preoperative Diagnosis: Multiple large fibroids, menorrhagia, chronic iron deficiency from chronic blood loss.[facility]: Performed By: #### SURGP #### [facility] (DEFAULT) [address] [place] [address] [phone] Radiology Diagnostic study note [facility] Imaging Services [address] [place] [address] Chest, Abd, Pel w/Contrast MR#: [id number] Acct: [id number] Name: UZMA MCDONALD Rep #: [id number] 6 : 1970 F 54 From: Karen Estrada MD PCP: Dr. David Fink MD Status: REG Dayday LYNN Study:CT Chest, Abd, Pel w/Contrast Date of E xam: 03/26/25 Exam# [id number] Ordering Dr: Imani Persaud MD PROCEDURE: CT [...] Persaud MD; Dr. David Fink MD ~ [employer] Operator: Signed [facility]05-12-2025 NoteReceived is a request for second opinion consultation by Dr. Christopher Cunningham. [facility] slide review Clinical Information: Intra-abdominal and pelvic swelling, mass and lump, unspecified site - R19.00 [ICD-10-CM].[facility] HospitalComment on above:Performed By: #### SURGP #### [facility] [facility] (DEFAULT) [address] [place] [address] [id number] History of Present illness Narrative* Kim Craven [...] offered a hysterectomy for heavy menstrual periods [id number] but this was not covered by insurance. [...] left adnexal mass. She was seen by [facility] on 01/17/25 with exploratory lap on [...] -- doing all chores and active at [employer] job at [employer]. Called Dr Persaud (local hem/onc) sent to [...] History: Diagnosis Date Coronary artery disease of [place] heart with stable angina pectoris 07/27/2022 Heart [...] Resource Strain: Low Risk (01/26/2025) Received from [facility] Overall Financial Resource Strain (CARDIA) Difficulty of Paying Living Expenses: Not hard at all Food Insecurity: No Food Insecurity (01/26/2025) Received from [facility] Hunger Vital Sign Worried About Running Out of Food in the Last Year: Never true Ran Out of Food in the Last Year: Never true Transportation Needs: No Transportation Needs (01/26/2025) Received from [facility] PRAPARE - Transportation Lack of Transportation (Medical): No Lack of Transportation (Non-Medical): No Physical Activity: Inactive (01/26/2025) Received from [facility] Exercise Vital Sign Days of Exercise per Week: 0 days Minutes of Exercise per Session: 0 min Stress: Stress Concern Present (01/24/2023) Received from [facility] [employer] - Occupational Stress Questionnaire Feeling of Stress : Rather much Social Connections: Moderately Isolated (01/24/2023) Received from [facility] Social Connection and Isolation Panel [NHANES] Frequency of Communication with Friends and Family: Three times a week Frequency of Social Gatherings with Friends and Family: Never Attends Rastafari Services: Never Active Member of Clubs or Organizations: No Attends Club or Organization Meetings: Not on file Marital Status: Personal Safety: Not At Risk (01/26/2025) Received from [facility] Humiliation, Afraid, Rape, and Kick questionnaire Fear of Current or Ex-Partner: No Emotionally Abused: No Physically Abused: No Sexually Abused: No Housing Stability: Unknown (01/26/2025) Received from [facility] Housing Stability Vital Sign Unable to Pay [...] use 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 Children 35,33,29,28 years old - no cancer history Half brother - no cancer history Parents - no cancer history Maternal grandparents - no cancer history Parental grandparents - unknown as father is adopted Current Medications: Current Outpatient Medications Medication Sig atorvastatin 80 MG tablet Take 1 tablet by mouth daily. nystatin [id number] UNIT/GM Cream Apply topically Twice daily. Sertraline [...] in addendum. Thiscase was sent to the [facility] with the above diagnosis for parts A and B rendered by Dr. Pierce. Below is Dr. Pierce's comment. 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 Immunochemical stains performed by [facility] and submitted for review show that the tumor cells are positive for SMA and negative for desmin, STAT6, pancytokeratin, S100 and CD34. Immunochemical stains were performed at the [facility] with the following results: - Desmin: Negative [...] Martinez and Williams agree with the diagnosis. LABS: [...] have [facility] pathology review slides [facility] ALEX ([facility], 05/28/22) and tumorremoval ex lap ([facility], 02/08/25) - We recommend local provider [...] Patient to continue to follow up with [facility], local oncology, cardiology, and primary care [...] 2021 for multiple severe episodes of bleeding ([facility], Dr. May Saucedo); pathology demonstrated multiple leiomyomas. [...] (tumor #2), left oophorectomy, omentectomy (Dr. Grady, [facility], [place], [place]). 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 Tumor #2 was fragmented. On exam, she has no abdominal distention. Respirations are clear and unlabored. I recommended pathology review at [facility] to revisit her initial ALEX, from [facility], 05/28/2022 as well as the Ex lap, from [facility], 02/08/2025. I also recommended NGS testing ([facility], [facility]), including HRD status on her resection specimen, [...] slides for Pathology review ([facility]): ALEX, from [facility], 05/28/2022 Ex lap, from [facility], 02/08/2025 documented in this encounterHol[facility] Instructions* Patient Instructions* Kim Dela Cruz RN - 03/21/2025 1:00 PM EDT Starting on May 14, 2025, our clinic will be moving to the [facility] at [address] [place] [address], 4th floor. You may visit [email or web address] for additional information and driving directions. Garage and science technicians parking are available. Feel free to call our office with any questions. [facility] Dr. Christopher Cunningham, Dr. Mateo Bear, Dr. Davide Davis, and Dr. Usha Mueller PA-C, Leo Pettit RN, RN, Júnior Minor, RN, Era Caraballo, RAMONE, Shawna Dela Cruz, RAMONE [address] 5th Floor [address] [facility], [place] [address] Line Inspector: Jazmine MCELROY [phone] Patient Care Washer Off RN: Pancho Urisa [phone] + Susy Estrella [phone] Please allow 10-14 business days for the completion of FMLA/Disability paperwork. Please send refill requests through your MyChart or call the office at least 48 [...] do not send urgent requests through your [employer] since these messages are not monitored as frequently throughout the day as phone calls. Results of imaging and pathology will be discussed at your follow up office visit with your provider. Our office does not give imaging or pathology results over the phone. If you have questions regarding the approval of imaging that is scheduled, please call [facility] pre-certification line at [phone] to obtain that information. We know your [...] Experience General Line . documented in this encounterHolmes [facility]04-04-2025 Telephone encounter Note* Telephone Encounter - Darvin Grady MD - 02/16/2025 11:13 AM EDT Pt called with path, to see Med Onc . Rec chemo. To see after chemo to discuss intermediate designer surveillance [facility] Phone: [phone]) 333-943004-04-2025 Miscellaneous Notes* Telephone Encounter - Darvin Grady MD - 02/16/2025 11:13 AM EDT Pt called with path, to see Med Onc . Rec chemo. To see after chemo to discuss intermediate designer surveillance documented in this [facility] [id number] Telephone encounter Note* Telephone Encounter - Daquan Boyce - 02/15/2025 11:06 AM EDT Faxed to Dr. Persaud at [phone] via [employer] Confirmation scanned within media [id number] Telephone encounter Note* Telephone Encounter - Daquan Boyce - 02/15/2025 11:06 AM EDT ----- Message from Darvin Grady MD sent at 02/14/2025 3:41 PM EDT ----- Gabbi fax to Dr Lopez at [facility] ----- Message ----- From: [employer] Valerie Kapoor Sent: 01/31/2025 1:18 PM EDT To: Darvin Grady MD [facility] [id number] Miscellaneous Notes* Telephone Encounter - Daquanrene Boyce - 02/15/2025 11:06 AM EDT Faxed to Dr. Persaud at [phone] via [employer] Confirmation scanned within media * Telephone Encounter - Daquan Boyce - 02/15/2025 11:06 AM EDT ----- Message from Darvin Grady MD sent at 02/14/2025 3:41 PM EDT ----- Gabbi fax to Dr Lopez at [facility] ----- Message ----- From: [employer] Valerie Kapoor Sent: 01/31/2025 1:18 PM EDT To: Darvin Grady MD documented in this [facility]04-02-2025 Telephone encounter Note* Telephone Encounter - SREEDHAR Klein CNP - 02/14/2025 3:[address] Grady request, Called Dr Persaud's office at [facility] and provided recommendation for gemzar/taxotere for leiomyosarcoma. Dr Grady requested they send patient back to see him after chemo is completed. He does not need to see her before then. Called patient and informed her ofsame. She verbalized understanding and agreement with plan. 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 Dr Grady requested they send patient back to see him after chemo is completed. He does not need to see her before then. Called patient and informed her ofsame. She verbalized understanding and agreement with plan. documented in this encounterSProtestant Deaconess HospitalRbscdt30-09-1913 History of Present illness Narrative* SREEDHAR Klein CNP - 02/14/2025 2:00 PM EDT GYNECOLOGIC [...] in addendum. Thiscase was sent to the [facility] with the above diagnosis for parts A and B rendered by Dr. Pierce. Below is Dr. Pierce's comment. 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 [facility] and submitted for review show that the tumor cells are positive for SMA and negative for desmin, STAT6, pancytokeratin, S100 and CD34. Immunochemical stains were performed at the [facility] with the following results: - Desmin: Negative [...] pt would like to get chemo at [facility] infusion center near her house - Discussed [...] care as described above. documented in this [facility]04-02-2025 Telephone encounter Note* Telephone Encounter - Darvin Grady MD - 02/14/2025 10:35 AM EDT [facility] full [facility] Phone: 1(943) 369-798704-02-2025 Miscellaneous Notes* Telephone Encounter - Darvin Grady MD - 02/14/2025 10:35 AM EDT Mail box full documented in this [facility]03-15-2025 NoteSinus rhythm Low voltage, precordial leads Poor R wave progression Electronically Signed On 01-27-2025 11:41:44 EDT by [facility] 01-27-2025 NoteSinus rhythm Low voltage, precordial leads Poor R wave progression Electronically Signed On 01-27-2025 11:41:44 EDT by [facility] 01-27-2025 NoteIMPRESSION: Sinus rhythm Low voltage, precordial leads Poor R wave progression Electronically Signed On 01-27-2025 11:41:44 EDT by [facility]03-15-2025 NoteGyn ONC Discharge Summary Patient Name: Uzma [...] Your Medications These medications were sent to [facility] [address] [place] [address] Hours: Wednesday to Wednesday 10 am to [...] restrictions reviewed. Reyna Mcgill DO 01/27/2025, 9:51 [facility] [id number] Hospital course Narrative* Reyna Mcgill DO - 01/27/2025 9:50 AM EDT Images from the original note were not included. [facility] ONC Discharge Summary Patient Name: Uzma Mcdonald [...] Your Medications These medications were sent to [facility] [address] [place] [id number] Hours: Wednesday to Wednesday 10 am to [...] 01/27/2025 6:08 PM EDT documented in this [facility]03-15-2025 History of Present illness Narrative* Reyna Mcgill DO - 01/27/2025 6:09 AM EDT Images from the original note were not included. [employer] Progress Note Please page the [facility] [facility]IL[facility] ONC Call RES group via Secure Chat for any questions or concerns. Date: 01/27/2025 Time: 6:09 AM Uzma Kavehtage 54 y.o. female , POD#1 s/p ExLap,Removal [...] 25 mg, 25 mg, Oral, BID, Wendie Thompson DO naloxone (Narcan) injection 0.4 mg, 0.4 mg, [...] mg, 80 mg, Oral, q6h PRN, Wendie Donna, DO sodium chloride 0.9 % infusion, 5-250 mL/hr, IntraVENous, PRN, Wendie Fyffe, DO sodium chloride 0.9% (NS) flush 10 mL, 10 mL, IntraVENous, 2 times per day, Wendie Donna, DO, 10mL at 01/26/252156 sodium chloride 0.9% (NS) flush 10 mL, 10 mL, IntraVENous, PRN, Wendie Donna, DO Diagnostics: ECG 12 lead Result Date: [...] QTC Interval 01/26/2025 418 ms Final P Hooker 01/26/2025 53 degrees Final QRS Hooker 01/26/2025 56 degrees Final T Wave Hooker 01/26/2025 53 degrees Final MO Interval 01/26/2025 185 ms Final Auto WBC [...] 9.0 - 12.7 fL Final Assessment/Plan: Uzma Mottage 54 y.o. female , POD#1 s/p ExLap,Removal [...] will discuss with attending HTN Hx of [place] -On Lopressor and cozaar -On Plavix and bASA at home Principal Problem: Pelvic mass Please page the [facility] COMMERCIAL AIRLINE PILOT ONC Call RES group via Secure Chat [...] answered. Sumaya Marroquin MD documented in this [facility]03-15-2025 Plan of care note* Care Plan - Veda Hickman RN - 01/27/2025 5:04 AM EDT Problem: Pain - Adult Goal: Verbalizes/displays adequate comfort level or baseline comfort level Outcome: Progressing Problem: Safety - Adult Goal: Free from fall injury Outcome: Progressing Problem: Discharge Planning Goal: Discharge to home or other facility with appropriate resources Outcome: Progressing [facility] [id number] Miscellaneous Notes* Care Plan - Veda Hickman [...] resected. Hemostasis was with several small 3-0 Wvxuktuxzzpg-bg-nqkhq's in the bladder peritoneum Bovie cautery as [...] anesthesia * Brief Op Note - Darvin Gardy MD - 01/26/2025 8:22 AM EDT Date: 01/26/2025 Location: [facility] OR Name: Uzma Mcdonald, : 1970, [...] 01/26/25 0928 Routine Description: LEFT OVARY Staff: Integrity Consultant: Dora Castro RN Scrub Person: Daysi Escobar RN Lula to Circ: Sabrina Philip RN Findings: Leiomyosarcoma [...] receiving Vancomycin or flouroquinolone) documented in this [facility]03-14-2025 Plan of care note* Care Plan - Jenny Torres RN - 01/26/2025 5:49 PM EDT Problem: Pain - Adult Goal: Verbalizes/displays adequate comfort level or baseline comfort level Outcome: Progressing Problem: Safety - Adult Goal: Free from fall injury Outcome: Progressing Problem: Discharge Planning Goal: Discharge to home or other facility with appropriate resources Outcome: Progressing [facility] [id number] Nurse Note* Jenny Torres RN - 01/26/2025 4:40 PM EDT Meds to Beds delivered to patient. Pt declined oxycodone prescription and sent back with Meds to Beds. [facility] [id number] Nurse Note* Jenyn Torres RN - 01/26/2025 4:40 PM EDT Meds to Beds delivered to patient. Pt declined oxycodone prescription and sent back with Meds to Beds. * Roxy Jimenez RN - 01/26/2025 10:34 AM EDT Patient family/visitor updated by RN at this time. documented in this [facility]03-14-2025 Nurse Note* Perioperative Nursing Note - Addy Donald RN - 01/26/2025 11:31 AM EDT Report given to Jenny PACK [facility] [id number] Nurse Note* Perioperative Nursing Note - Addy Donald RN - 01/26/2025 11:26 AM EDT Faxed report sheet to [facility] [id number] Nurse Note* Roxy Jimenez RN - 01/26/2025 10:34 AM EDT Patient family/visitor updated by RN at this time. [address] Cook [id number] Hospital Discharge instructions* Discharge Instructions* Wendie Thompson DO - 01/26/2025 10:34 AM EDT Please follow your post operative care instructions given to you by your Loss Prevention Coordinator Oncologist's office at your pre operative visit. Please call the office with questions or concerns and be sure to follow up at your scheduled post operative visit. * Attachments The following attachments cannot be sent through Care Everywhere. * Exploratory Laparotomy Discharge Instructions (Wallisian) documented in this [facility]03-14-2025 NotePatient: Uzma Mcdonald Procedure Summary Date: 01/26/25 Room / Location: [address] Operating Room Anesthesia Start: 822 Anesthesia Stop: 1020 Procedures: EXPLORATORY LAPAROTOMY, LEFT OOPHORECTOMY, RESECTION OF [...] Allowed opportunity for questions and acknowledgement of understanding.[facility] [id number] NotePatient: Uzma Freetage Procedure Summary Date: 01/26/25 Room / Location: [address] Operating Room Anesthesia Start: 822 Anesthesia [...] discharged once all PACU criteria has been met.[facility] [id number] NoteAirway Date/Time: 01/26/2025 8:29 AM Urgency: scheduled Airway not difficult General Information and Staff Patient location during procedure: Procedural Resident/JOURNEYMAN MOLDER: Skip Whittaker CRNA Performed: SRNA and JOURNEYMAN MOLDER Indications and Patient Condition Indications for airway [...] approach: 1 Number of other approaches attempted: [address] [place] [address] [id number] Note Peripheral Block Time Out: 01/26/2025 8:35 AM Patient location during procedure: Procedural Start time: 01/26/2025 8:35 AM End time: 01/26/2025 8:35 AM Reason for block: at surgeon's request and post-op pain management Staffing Performed: JOURNEYMAN MOLDER Resident/JOURNEYMAN MOLDER: Roni Porter APRN - NABEEL Preanesthetic Checklist Completed: patient identified, IV checked, [...] plane. and Local anesthetic injected without difficultyMedications hkwQDVEVndkwq-zfkwwwphepo-mjvsjidjzoy (TAP) syringe - Injection 60 mL - 01/26/2025 8:35:00 [facility] [id number] Procedure note* Op Note - Darvin Grady [...] resected. Hemostasis was with several small 3-0 Sqozkycnzurb-js-jmguq's in the bladder peritoneum Bovie cautery as [...] cover room in stable condition by anesthesia [facility] [id number] Procedure note* Brief Op Note - Darvin Grady MD - 01/26/2025 8:22 AM EDT Date: 01/26/2025 Location: [facility] OR Name: Uzma Mcdonald, : 1970, Diagnosis [...] Pelvic Tissue TISSUE EXAM Darvin Grady MD 01/26/25904 No Routine Description: pelvic mass #2 4 Omentum, Biopsy Tissue TISSUE EXAM Darvin Grady MD 01/26/25912 No Routine Description: omentum 5 Ovary, Left Tissue TISSUE EXAM Darvin Grady MD 01/26/25927 Routine Description: LEFT OVARY Staff: Integrity Consultant: Dora Castro RN Scrub Person: Daysi Escobar RN Lula to Circ: Sabrina Philip RN Findings: Leiomyosarcoma [...] (two hours if receiving Vancomycin or flouroquinolone) [facility]03-14-2025 NotePatient: Uzma Freetage Procedure Information Date/Time: 01/26/25829 Procedures: LAPAROTOMY, EXPLORATORY (Abdomen) - 1 HOUR GENERAL TAP BLOCK LEFT LAPAROSCOPIC, SALPINGO-OOPHORECTOMY (Left: Abdomen) POSSIBLE LYMPHADENECTOMY, PARA-AORTIC OR PELVIC, LIMITED, FOR STAGING (Abdomen) LAPAROSCOPY, WITH BIOPSY (Abdomen) Location: [address] Operating Room Surgeons: Darvin Grady MD Relevant [...] voltage, precordial leads Equipment Requests: Additional [facility]sCore[facility] [id number] Attending History and physical note* Darvin Grady [...] hysterectomy withRSO in the past. 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 Denies [...] Resource Strain: Low Risk (01/24/2023) Received from [facility] Overall Financial Resource Strain (CARDIA) Difficulty of Paying Living Expenses: Not very hard Food Insecurity: No Food Insecurity (01/24/2023) Received from [facility] Hunger Vital Sign Worried About Running Out of Food in the Last Year: Never true Ran Out of Food in the Last Year: Never true Transportation Needs: No Transportation Needs (01/24/2023) Received from [facility] PRAPARE - Transportation Lack of Transportation (Medical): No Lack of Transportation (Non-Medical): No Physical Activity: Insufficiently Active (01/24/2023) Received from [facility] Exercise Vital Sign Days of Exercise per Week: 2 days Minutes of Exercise per Session: 20 min Stress: Stress Concern Present (01/24/2023) Received from [facility] [employer] - Occupational Stress Questionnaire Feeling of Stress : Rather much Social Connections: Moderately Isolated (01/24/2023) Received from [facility] Social Connection and Isolation Panel [NHANES] Frequency of Communication with Friends and Family: Three times a week Frequency of Social Gatherings with Friends and Family: Never Attends Rastafari Services: Never Active Member of Clubs or Organizations: No Marital Status: Housing Stability: Low Risk (01/24/2023) Received from [facility] Housing Stability Vital Sign Unable to Pay [...] nursing note reviewed. Exam conducted with a staff analyst present. Constitutional: Appearance: She is obese. Cardiovascular: [...] on date of service as well as rdez-ey-cock counseling with patient was 35 minutes Patient has been asked to stop her Plavix 5 days before surgery [facility] Work Phone: 1(766) 155-769303-14-2025 NoteH&P reviewed. The patient was examined and there are no changes to the H&P.How do you roll? [id number] History and physical note* Darvin Grady MD [...] hysterectomy withRSO in the past. 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 Denies [...] Resource Strain: Low Risk (01/24/2023) Received from [facility] Overall Financial Resource Strain (CARDIA) Difficulty of Paying Living Expenses: Not very hard Food Insecurity: No Food Insecurity (01/24/2023) Received from [facility] Hunger Vital Sign Worried About Running Out of Food in the Last Year: Never true Ran Out of Food in the Last Year: Never true Transportation Needs: No Transportation Needs (01/24/2023) Received from [facility] PRAPARE - Transportation Lack of Transportation (Medical): No Lack of Transportation (Non-Medical): No Physical Activity: Insufficiently Active (01/24/2023) Received from [facility] Exercise Vital Sign Days of Exercise per Week: 2 days Minutes of Exercise per Session: 20 min Stress: Stress Concern Present (01/24/2023) Received from [facility] [employer] - Occupational Stress Questionnaire Feeling of Stress : Rather much Social Connections: Moderately Isolated (01/24/2023) Received from [facility] Social Connection and Isolation Panel [NHANES] Frequency of Communication with Friends and Family: Three times a week Frequency of Social Gatherings with Friends and Family: Never Attends Rastafari Services: Never Active Member of Clubs or Organizations: No Marital Status: Housing Stability: Low Risk (01/24/2023) Received from [facility] Housing Stability Vital Sign Unable to Pay [...] nursing note reviewed. Exam conducted with a staff analyst present. Constitutional: Appearance: She is obese. Cardiovascular: [...] on date of service as well as pleh-ou-rdqa counseling with patient was 35 minutes Patient has been asked to stop her Plavix 5 days before surgery documented in this encounterSumma [id number] Telephone encounter Note* Telephone Encounter - Audelia Sams - 01/19/2025 11:38 AM EST PAT 01.23.2025 at 9:30 am by phone SX: 04.28.2025 at 8:30 am arrival at 6:30 am Post op 02.09.2025 at 11 am Folder and instructions given. [facility] [id number] Miscellaneous Notes* Telephone Encounter - Audelia Sams - 01/19/2025 11:38 AM EST PAT 01.23.2025 at 9:30 am by phone SX: 04.28.2025 at 8:30 am arrival at 6:30 am Post op 02.09.2025 at 11 am Folder and instructions given. documented in this [facility]03-05-2025 History of Present illness Narrative* Darvin Grady [...] hysterectomy withRSO in the past. 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 Denies [...] Resource Strain: Low Risk (01/24/2023) Received from [facility] Overall Financial Resource Strain (CARDIA) Difficulty of Paying Living Expenses: Not very hard Food Insecurity: No Food Insecurity (01/24/2023) Received from [facility] Hunger Vital Sign Worried About Running Out of Food in the Last Year: Never true Ran Out of Food in the Last Year: Never true Transportation Needs: No Transportation Needs (01/24/2023) Received from [facility] PRAPARE - Transportation Lack of Transportation (Medical): No Lack of Transportation (Non-Medical): No Physical Activity: Insufficiently Active (01/24/2023) Received from [facility] Exercise Vital Sign Days of Exercise per Week: 2 days Minutes of Exercise per Session: 20 min Stress: Stress Concern Present (01/24/2023) Received from [facility] [employer] - Occupational Stress Questionnaire Feeling of Stress : Rather much Social Connections: Moderately Isolated (01/24/2023) Received from [facility] Social Connection and Isolation Panel [NHANES] Frequency of Communication with Friends and Family: Three times a week Frequency of Social Gatherings with Friends and Family: Never Attends Rastafari Services: Never Active Member of Clubs or Organizations: No Marital Status: Housing Stability: Low Risk (01/24/2023) Received from [facility] Housing Stability Vital Sign Unable to Pay [...] nursing note reviewed. Exam conducted with a staff analyst present. Constitutional: Appearance: She is obese. Cardiovascular: [...] on date of service as well as ejko-ty-[id number] counseling with patient was 35 minutes Patient has been asked to stop her Plavix 5 days before surgery * Susy Blake MA - 01/17/2025 10:30 AM EST Rig Supervisor was offered to the patient for exam. 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 record librarian in room during exam documented in this [facility]03-05-2025 NoteHPI: Uzma Mcdonald is a pleasant 54 [...] with RSO in the past. 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 Denies [...] Resource Strain: Low Risk (01/24/2023) Received from [facility] Overall Financial Resource Strain (CARDIA) Difficulty of Paying Living Expenses: Not very hard Food Insecurity: No Food Insecurity (01/24/2023) Received from [facility] Hunger Vital Sign Worried About Running Out of Food in the Last Year: Never true Ran Out of Food in the Last Year: Never true Transportation Needs: No Transportation Needs (01/24/2023) Received from [facility] PRAPARE - Transportation Lack of Transportation (Medical): No Lack of Transportation (Non-Medical): No Physical Activity: Insufficiently Active (01/24/2023) Received from [facility] Exercise Vital Sign Days of Exercise per Week: 2 days Minutes of Exercise per Session: 20 min Stress: Stress Concern Present (01/24/2023) Received from [facility] [employer] - Occupational Stress Questionnaire Feeling of Stress : Rather much Social Connections: Moderately Isolated (01/24/2023) Received from [facility] Social Connection and Isolation Panel [NHANES] Frequency of Communication with Friends and Family: Three times a week Frequency of Social Gatherings with Friends and Family: Never Attends Rastafari Services: Never Active Member of Clubs or Organizations: No Marital Status: Housing Stability: Low Risk (01/24/2023) Received from [facility] Housing Stability Vital Sign Unable to Pay [...] nursing note reviewed. Exam conducted with a staff analyst present. Constitutional: Appearance: She is obese. Cardiovascular: Rate and Rhythm: Normal rate and regular rhythm. Pulmonary: Effort: Pulmonary effort is normal. Breath sounds: Normal breath sounds. Abdominal: General: Abdomen is flat. A surgical scar is present. Palpations: Abdomen is soft. There is mass. Tenderness: There is abdominal tenderness. Comments: (more content not included)...[facility]03-05-2025 Note HPI: Uzma Mcdonald is a pleasant [...] with RSO in the past. 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 Denies [...] Resource Strain: Low Risk (01/24/2023) Received from [facility] Overall Financial Resource Strain (CARDIA) Difficulty of Paying Living Expenses: Not very hard Food Insecurity: No Food Insecurity (01/24/2023) Received from [facility] Hunger Vital Sign Worried About Running Out of Food in the Last Year: Never true Ran Out of Food in the Last Year: Never true Transportation Needs: No Transportation Needs (01/24/2023) Received from [facility] PRAPARE - Transportation Lack of Transportation (Medical): No Lack of Transportation (Non-Medical): No Physical Activity: Insufficiently Active (01/24/2023) Received from [facility] Exercise Vital Sign Days of Exercise per Week: 2 days Minutes of Exercise per Session: 20 min Stress: Stress Concern Present (01/24/2023) Received from [facility] [employer] - Occupational Stress Questionnaire Feeling of Stress : Rather much Social Connections: Moderately Isolated (01/24/2023) Received from [facility] Social Connection and Isolation Panel [NHANES] Frequency of Communication with Friends and Family: Three times a week Frequency of Social Gatherings with Friends and Family: Never Attends Rastafari Services: Never Active Member of Clubs or Organizations: No Marital Status: Housing Stability: Low Risk (01/24/2023) Received from [facility] Housing Stability Vital Sign Unable to Pay [...] nursing note reviewed. Exam conducted with a staff analyst present. Constitutional: Appearance: She is obese. Cardiovascular: Rate and Rhythm: Normal rate and regular rhythm. Pulmonary: Effort: Pulmonary effort is normal. Breath sounds: Normal breath sounds. Abdominal: General: Abdomen is flat. A surgical scar is present. Palpations: Abdomen is soft. There is mass. Tenderness: There is abdominal tenderness. Comments: (more content not included)...[facility]02-28-2025 Radiology Diagnostic study note [facility] Imaging Services [address], [place] [address] Transvaginal Non- MR#: [id number] Acct: [id number] Name: UZMA MCDONALD Rep #: [id number] : 1970 F 54 From: Jake Canales MD PCP: Dr. David Fink MD Status: REG Dayday LYNN Study:Transvaginal Non- Date of Exam: 01/12/25 Exam# [id number] Ordering Dr: Imani Persaud MD PROCEDURE: TRANSVAGINAL [...] process should be ruled out. Reading Location: [id number] CC: Dr. Imani Persaud MD; Dr. David Fink MD ~ [employer] Operator: Signed [facility]02-26-2025 Evaluation note* Diagnosis Onset Date Resolution Status Admit Date Pelvic mass inactive December 12:54pm [facility] Work Phone: 1(682) 148-262102-26-2025 Evaluation note* Diagnosis Onset Date Resolution Status Admit Date Pelvic mass inactive December 12:54pm Primary leiomyosarcoma of pelvis acute February 26, 2025 10:59am Encounter for insertion of venous access port acute March 26 1:19pm Primary leiomyosarcoma of pelvis acute March 28, 2025 3 :30pm [employer] Work Phone: 1(912) 682-898002-26-2025 Evaluation note* Diagnosis Onset Date Resolution Status Admit Date Pelvic mass inactive December 12:54pm Primary leiomyosarcoma of pelvis acute February 26, 2025 10:59am Encounter for insertion of venous access port acute March 26 1:19pm Primary leiomyosarcoma of pelvis acute March 28, 2025 3 :30pm Encounter for education acute M ay 2024 1:47pm Primary leiomyosarcoma of pelvis acute April 04, 2025 1 :47pm [employer] Work Phone: 1(158) 903-649802-26-2025 Evaluation note* Diagnosis Onset Date Resolution Status [...] pelvis acute April 19, 2025 8 :09am [employer] Work Phone: 1(354) 124-865002-26-2025 Evaluation note* Diagnosis Onset Date Resolution Status [...] of pelvis acute April 26, 2025 8:12am [employer] Work Phone: 1(994) 303-560002-26-2025 Evaluation note* Diagnosis Onset Date Resolution Status [...] 2021 resolved April 18, 2025 1 0:44am [employer] Work Phone: 1([phone]) 802-700502-26-2025 Evaluation note* Diagnosis Onset Date Resolution Status [...] of pelvis acute April 26, 2025 8:12am Primary leiomyosarcoma of pelvis acute May 03, 2025 10:20am [facility] Work Phone: 1(854) 580-1340908216-10-0577 Telephone encounter Note* Telephone Encounter - Nayana Steele MA - 12/25/2024 2:29 PM EST Patient given results and verbalized understanding of instructions given. Nayana Steele MA [facility]02-10-2025 Miscellaneous Notes* Telephone Encounter - Nayana Steele [...] blood in the urine. documented in this encounterMain [facility] Center02-10-2025 Telephone encounter Note * Telephone Encounter - Chace Tobias PA - 12/25/2024 11:48 AM EST Please contact patient and let her know that urine culture revealed no UTI. She needs close follow-up with primary care doctor to ensure resolution of blood in the urine. [facility] Work Phone: 1(411) 229-597202-09-2025 NoteHNO ID: [id number] Author: ISAÍAS RIBEIRO APRN.UMBRELLA SUPERVISOR Service: ? Author Type: Nurse Practitioner Type: [...] lens implant PAST SURGICAL HISTORY OF 03/31/2021 [employer] stent REBEL CORONARY PLAT CHROMIUM BARE METAL STENT SYS [id number], 144 CM 06/26/2014 REMOVAL GALLBLADDER 2013 SUPRACERVICAL [...] cervical adenopathy. Skin: G (more content not included)...[facility]02-09-2025 History of Present illness Narrative* Isaías Ribeiro, SREEDHAR.UMBRELLA SUPERVISOR - 12/24/2024 1:53 PM EST Subjective HPI [...] CORONARY PLAT CHROMIUM BARE METAL STENT SYS [id number], 144 CM 06/26/2014 REMOVAL GALLBLADDER 2013 SUPRACERVICAL [...] of care. This note was generated using [employer] software. It may contain errors in wording, punctuation, or spelling. Isaías Ribeiro APRN.JAIRO documented in this encounterMain [facility] Center11-25-2024 Telephone encounter Note * Telephone Encounter - Zoey Pineda MA - 10/09/2024 3:53 PM EST Pt reviewed message from PCP regarding mammogram results. PCP sent pt message to pt on 10/03/24, was reviewed by pt same day. Zoey Pineda MA [facility]11-25-2024 Miscellaneous Notes* Telephone Encounter - Zoey Pineda [...] continue with annual screenings. documented in this encounterMain Campus Medical Center11-19-2024 Telephone encounter Note * Telephone Encounter - Ann Zacarias RN - 10/03/2024 9:49 AM EST Called and left a voicemail for the Patient to call back and ask for a nurse to receive the providers message. Ann Zacarias RN [facility]11-19-2024 Telephone encounter Note* Telephone Encounter - Susy Smith APRN.CNP - 10/03/2024 8:15 AM EST Please let patient know her mammogram is negative. Patient should continue with annual screenings. [facility] Work Phone: [phone]) 645-118711-15-2024 History of Present illness Narrative* Elizabeth Elizondo [...] PATIENT PRESENTS WITH AN IMPLANTABLE OR ATTACHED COMMISSIONING EDITOR: No RADIOLOGY DEPARTMENT: Mammography PERIPHERAL IV DATA: Not applicable SIGNED BY: Chiqui Kilgore September 29, 2024 1:54 PM documented in this encounterMain Campus Medical Center11-15-2024 NoteHNO ID: [id number] Author: ELIZABETH ELIZONDO Mammo Tech Service: ? Author Type: Wood Model Maker Type: Progress Notes Filed: 09/29/2024 13:54 Note [...] PATIENT PRESENTS WITH AN IMPLANTABLE OR ATTACHED COMMISSIONING EDITOR: No RADIOLOGY DEPARTMENT: Mammography PERIPHERAL IV DATA: Not applicable SIGNED BY: Pavithra Kilgoreo Brook September 29, 2024 1:54 [facility] Telephone encounter Note* Telephone Encounter - Susy Smith APRN.CNP - 09/25/2024 2:22 PM EST Ordered [facility]11-11-2024 Miscellaneous Notes* Telephone Encounter - Susy Smith APRN.CNP - 09/25/2024 2:22 PM EST Ordered * Telephone Encounter - Elizabeth Elizondo Mammo Tech - 09/25/2024 1:40 PM EST Could we have a mammogram screening order STAT! Pt schedule today at 1450. Thanks a million documented in this encounterMain Campus Medical Center11-11-2024 Telephone encounter Note * Telephone Encounter - Elizabeth Elizondo Mammo Tech - 09/25/2024 1:40 PM EST Could we have a mammogram screening order STAT! Pt schedule today at 1450. Thanks a million [facility]09-18-2024 Telephone encounter Note* Telephone Encounter - Hazel Marshall LPN - 08/02/2024 7:57 PM EDT Patient notified.Hazel Marshall LPN [facility]09-18-2024 Miscellaneous Notes* Telephone Encounter - Hazel Marshall LPN - 08/02/2024 7:57 PM EDT Patient notified.Hazel Marshall LPN * Telephone Encounter - Isaías Ribeiro APRN.CNP - 08/02/2024 7:51 PM EDT Please inform patient that chest x-ray is negative. Continue plan of care as discussed during visit. documented in this encounterMain Campus Medical Center09-18-2024 Telephone encounter Note * Telephone Encounter - Isaías Ribeiro APRN.CNP - 08/02/2024 7:51 PM EDT Please inform patient that chest x-ray is negative. Continue plan of care as discussed during visit. [facility]09-18-2024 History of Present illness Narrative* Keshia Manriquez [...] PATIENT PRESENTS WITH AN IMPLANTABLE OR ATTACHED COMMISSIONING EDITOR: No RADIOLOGY DEPARTMENT: General X-ray: Exam(s) Completed: Chest X-Ray PERIPHERAL IV DATA: Not applicable SIGNED BY: RT Sear(R) August 02, 2024 7:17 PM documented in this encounterMain Campus Medical Center09-18-2024 NoteHNO ID: [id number] Author: KESHIA MANRIQUEZ RT(R) Service: ? Author Type: Wood Model Maker Type: Progress Notes Filed: 08/02/2024 19:17 Note [...] PATIENT PRESENTS WITH AN IMPLANTABLE OR ATTACHED COMMISSIONING EDITOR: No RADIOLOGY DEPARTMENT: General X-ray: Exam(s) Completed: Chest X-Ray PERIPHERAL IV DATA: Not applicable SIGNED BY: RT Sera(R) August 02, 2024 7:17 [facility]09-18-2024 NoteHNO ID: [id number] Author: ISAÍAS RIBEIRO APRN.UMBRELLA SUPERVISOR Service: ? Author Type: Nurse Practitioner Type: [...] CORONARY PLAT CHROMIUM BARE METAL STENT SYS [id number], 144 CM 06/26/2014 REMOVAL GALLBLADDER 2013 SUPRACERVICAL [...] 2V FRONTAL/LAT 2. Bronchi (more content not included)...[facility]09-18-2024 History of Present illness Narrative* Isaías Ribeiro, SREEDHAR.[facility] - 08/02/2024 6:55 PM EDT Subjective [...] CORONARY PLAT CHROMIUM BARE METAL STENT SYS [id number], 144 CM 06/26/2014 REMOVAL GALLBLADDER 2013 SUPRACERVICAL [...] of care. This note was generated using [employer] software. It may contain errors in wording, punctuation, or spelling. Isaías Ribeiro APRN.JAIRO documented in this encounterMain Campus Medical Center06-04-2024 NoteHNO ID: [id number] Author: JUANA LINTON APRN.JAIRO Service: ? Author Type: Nurse Practitioner Type: Progress Notes Filed: 04/18/2024 13:22 Note Text: This note was created using [employer]. Subjective Uzma Mcdonald is a 53 year [...] history is provided by the patient. No computer language coder was used. URI She complains of cough. [...] CORONARY PLAT CHROMIUM BARE METAL STENT SYS [id number], 144 CM 06/26/2014 REMOVAL GALLBLADDER 2013 SUPRACERVICAL [...] and behavioral problems. Objective (more content not included)...[facility]06-04-2024 History of Present illness Narrative* Juana Linton, SREEDHAR.[facility] - 04/18/2024 12:20 PM EDT This note was created using [employer]. Subjective Uzma Mcdonald is a 53 year [...] history is provided by the patient. No computer language coder was used. URI She complains of cough. [...] lens implant PAST SURGICAL HISTORY OF 03/31/2021 [employer] stent REBEL CORONARY PLAT CHROMIUM BARE METAL STENT SYS [id number], 144 CM 06/26/2014 REMOVAL GALLBLADDER 2013 SUPRACERVICAL [...] at time of exam. She declines visiting [facility] for xray Will try to come back [...] if symptoms persist or worsen. Juana Linton APRN.UMBRELLA SUPERVISOR documented in this encounterMain Campus Medical Center05-09-2024 NoteHNO ID: [id number] Author: CINTHYA VAUGHAN APRN.JAIRO Service: ? Author [...] CORONARY PLAT CHROMIUM BARE METAL STENT SYS [id number], 144 CM 06/26/2014 REMOVAL GALLBLADDER 2013 SUPRACERVICAL [...] No erythema or rash. (more content not included)...[facility]05-09-2024 History of Present illness Narrative* Cinthya Vaughan APRN.[facility] - 03/23/2024 10:57 AM EDT Subjective [...] CORONARY PLAT CHROMIUM BARE METAL STENT SYS [id number], 144 CM 06/26/2014 REMOVAL GALLBLADDER 2012 SUPRACERVICAL ABDL HYSTER W/WO RMVL TUBE OVARY [...] expected course of illness Cinthya Vaughan APRN.CNP documented in this encounterMain Campus Medical Center05-09-2024 Instructions* Patient Instructions* Cinthya Vaughan APRN.CNP - 03/23/2024 10:57 AM EDT ASSESSMENT/PLAN: 1. [...] days of proper treatment. documented in this encounterMain Campus Medical Center11-06-2023 Miscellaneous Notes* Letter - Coordinator, Mammography - 09/20/2023 2:45 PM EST September 21, 2023 PID: [id number] Uzma DeanneShirley Mcdonald [address] [place] [address] Dear Ms. Mcdonald, We are pleased to [...] report will be kept on file at [facility] as part of your permanent medical record and are available for your continuing care. Thank you for allowing us to help in meeting your health care needs. Sincerely, Dr. Velasquez Interpreting Radiologist [facility] (Normal over 40) documented in this encounterMain Campus Medical Center11-03-2023 History of Present illness Narrative* Elizabeth Elizondo Mammo Tech - 09/17/2023 2:30 PM EDT Radiology Service Progress Note PATIENT NAME: Uzma Mottaconnie DATE OF SERVICE: September 17, 2023 TIME: [...] 17, 2023 2:33 PM documented in this encounterMain Campus Medical Center10-10-2023 Miscellaneous Notes* Telephone Encounter - Aye Gtz [...] new patient? Please call pt with reply. [phone] Thank you. documented in this encounterMain Campus Medical Center04-17-2023 History of Present illness Narrative* David Fink MD - 03/01/2023 2:25 PM EDT Patient presents with: Follow Up: Starting zoloft HPI: Patient presents today for office visit for follow up. PSYCH: Currently tolerating medications well: Yes . Side effects: No. 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 David Fink MD documented in this encounterMain Campus Medical Center04-04-2023 History of Present illness Narrative* Hilda Morin APRN.UMBRELLA SUPERVISOR - 02/16/2023 3:53 PM EDT Chief Complaint Patient presents with: Telemedicine I have communicated my name and active licensure. The patient's identity and physical location wereverified at the time of this visit. Either the patient or their legal civil rights representative has been informed of the risks [...] agrees to the visit: Yes Patient Location: [facility] Uzma Mcdonald is a 52 year old [...] lens implant PAST SURGICAL HISTORY OF 03/31/2021 Synthox stent REBEL CORONARY PLAT CHROMIUM BARE METAL STENT SYS [id number], 144 CM 06/26/2014 REMOVAL GALLBLADDER 2013 SUPRACERVICAL [...] as needed for worsening/no improvement. Hilda Morin APRN.UMBRELLA SUPERVISOR documented in this encounterMain Campus Medical Center03-16-2023 Miscellaneous Notes* Telephone Encounter - David Fink MD - 01/28/2023 9:21 AM EDT Disregard. Finally read * Telephone Encounter - David Fink MD - 01/28/2023 8:03 AM EDT Can we check with radiology why her hand xray is still pending several days after it was taken? documented in this encounterMain Campus Medical Center03-14-2023 History of Present illness Narrative* David Fink [...] CORONARY PLAT CHROMIUM BARE METAL STENT SYS [id number], 144 CM 06/26/2014 REMOVAL GALLBLADDER 2013 SUPRACERVICAL [...] intact. ASSESSMENT/PLAN: 1. Coronary artery disease of [place] heart with stable angina pectoris, unspecified vessel [...] or questions. David Fink documented in this encounterMain Campus Medical Center09-15-2022 Miscellaneous Notes* Letter - Mammography Coordinator - 07/30/2022 1:52 PM EDT July 30, 2022 PID: [id number] Uzma Mcdonald [address] [place] [address] Dear Ms. Mcdonald, We are pleased to [...] report will be kept on file at [facility] as part of your permanent medical record and are available for your continuing care. Thank you for allowing us to help in meeting your health care needs. Sincerely, Dr. Santiago Interpreting Radiologist [facility] (Normal over 40) documented in this encounterMain Campus Medical Center09-15-2022 History of Present illness Narrative* RT Mk(R) [...] IV DATA: Not applicable SIGNED BY: RT Mk(Christal) July 30, 2022 12:36 PM documented in this encounterMain Campus Medical Center09-13-2022 Miscellaneous Notes* Telephone Encounter - Zoey Pineda [...] a1c in six months documented in this encounterMain Campus Medical Center09-12-2022 History of Present illness Narrative* David Fink MD - 07/27/2022 1:10 PM EDT Patient presents with: Establish Care HPI: Patient presents today for office visit for getting established. CARDIO: she had an MN in 2013 and stent last May in [...] CORONARY PLAT CHROMIUM BARE METAL STENT SYS [id number], 144 CM 06/26/2014 REMOVAL GALLBLADDER 2013 SUPRACERVICAL [...] refill. ASSESSMENT/PLAN: 1. Coronary artery disease of [place] heart with stable angina pectoris, unspecified vessel [...] RTO in six months documented in this encounterMain Campus Medical Center08-11-2022 Miscellaneous Notes* Telephone Encounter - Radha Adames Ma - 06/25/2022 12:37 PM EDT Ok to establish care. Please schedule appropriately. Radha Adames Ma * Telephone Encounter - Frdea Hermosillo - 06/25/2022 12:25 PM EDT Pt called in hoping to establish care with . She stated that her (Pancho) is a pt of Dr. Fink already. Please advise pt either way. Freda Hermosillo documented in this encounterMain Campus Medical Center08-02-2022 Miscellaneous Notes* Telephone Encounter - Tonie Cortez RN - 06/16/2022 8:29 AM EDT Patient had supracervical hysterectomy with bilateral salpingectomy and right oophorectomy and cystoscopy on 05/28/22. Tonie Cortez RN documented in this encounterMain Campus Medical Center2022 History of Present illness Narrative* Kyleigh Saucedo MD - 06/08/2022 2:00 PM EDT DATE OF SERVICE: 06/08/2022 PROBLEM: Uzma Mcdonald presents for postop visit. SURGERY & DATE: 05/28/22 supracervical abd. hyst w/ RSO and left salpingectomy and cysto at [facility] for fibroids, bleeding PATHOLOGY: pending SUBJECTIVE/INTERVAL HISTORY: Uzma Mcdonald reports that she feels well. No fever or chills. No shortness of breath, cough, or chest pain. Incision is not painful, some pruritis. Minimal SS drainage from mid portion. No vaginal bleeding. Less heartburn and ANA since uterus removed. Patient reports that her appetite is good. OBJECTIVE: VABDOMEN: Abdomen soft, non-tender, no hepatosplenomegaly. Esopus removed with staple removal without complication. Incision is intact with small amount of scabbing and normal healing induration. ASSESSMENT: postop visit, staple removal PLAN: 1. Discussed surgery and recovery and restrictions, pathology pending 2. Postop restrictions reviewed. Kyleigh Saucedo MD documented in this encounterMain Campus Medical Center2022 History of Present illness Narrative* Kyleigh Saucedo MD - 06/08/2022 1:22 PM EDT Patient underwent supracervical hysterectomy with bilateral salpingectomy and right oophorectomy and cystoscopy at [facility] on 05/28/2022. The uterus was enlarged with [...] removal. Kyleigh Saucedo MD documented in this encounterMain Campus Medical Center07-22-2022 Miscellaneous Notes* Telephone Encounter - Marci Olsen LPN - 06/05/2022 1:08 PM EDT Patient notified * Telephone Encounter - Margy Brown MD - 06/05/2022 12:05 PM EDT Discussed with SHELIA I think OK to monitor over the [...] have kenyon removed 06/10/2022 documented in this encounter[facility] History and physical note * Kyleigh Saucedo [...] CORONARY PLAT CHROMIUM BARE METAL STENT SYS [id number], 144 CM 06/26/2014 REMOVAL GALLBLADDER 2012 Current [...] allergies Kyleigh Saucedo M.D. documented in this encounterMain [facility] Center06-20-2022 Miscellaneous Notes* Telephone Encounter - Margy Brown MD - 05/04/2022 4:10 PM EDT filed * Telephone Encounter - Aye Castro RN - 05/04/2022 3:36 PM EDT Refill request received via Anib[employer]. Patient is scheduled for surgery with Dr. Saucedo on 05/28/22. Aye Castro RN documented in this encounterMain [facility] Center06-09-2022 Instructions* Patient Instructions* Juana Linton APRN.UMBRELLA SUPERVISOR - 04/23/2022 11:35 AM EDT RESPIRATORY INFECTION [...] spread by coughs, sneezes, anddirect contact, especially [id number]. A respiratory tract infection usually clears up [...] 102 F (39 C). documented in this encounterMain [facility] Center06-09-2022 History of Present illness Narrative* Juana Linton APRN.CNP - 04/23/2022 11:05 AM EDT This note was created using wiseririter. Subjective Uzma Mcdonald is a 51 year old female. 51 year old female with PMH of Two cardiac stents, HTN, and MN in 2013 presents with complaints of illness. 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 Denies CP. Denies hemoptysis. Utilized some claritin a couple of times. 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 +tobacco usage. Denies that her usage is affected by her illness, States she is currently trying tocut back/quit. The history is provided by the patient. No computer language coder was used. Cough This is a new [...] CORONARY PLAT CHROMIUM BARE METAL STENT SYS [id number], 144 CM 06/26/2014 REMOVAL GALLBLADDER 2012 ALLERGIES Patient has no known allergies. MEDICATIONS [...] content normal. Judgment: Judgment normal. Shena Paredes APRN Student ASSESSMENT/PLAN: 1. Cough - ICD9: 786.2, [...] symptoms - Declines COVID testing. Juana Linton APRN.UMBRELLA SUPERVISOR TEACHING PROVIDER (Physician/PA/TOBACCO SIEVE OPERATOR) NOTE OF PERSONAL INVOLVEMENT IN CARE: I have personally seen and examined the patient and performed the medical decision-making components. I have reviewed the Advanced Practice Registered Nurse (TOBACCO SIEVE OPERATOR) Student's documentation and verified the findings in the note as written. Any additions or changes are noted in bold/italics. Signature: Juana Linton Date: 04/23/2022 Time: 11:55 AM documented in this encounterMain [facility] Center06-09-2022 History of Present illness Narrative* Yolette Gramajo [...] 23, 2022 11:00 AM documented in this encounterMain Campus Medical Center05-12-2022 Miscellaneous Notes* Telephone Encounter - Aye Castro RN - 03/26/2022 12:42 PM EDT Patient called back and notified of below. Patient would like to proceed with surgery on 05/28 at [facility]. Aye Catsro RN * Telephone Encounter - Marci Olsen LPN - 03/26/2022 12:31 PM EDT Left message to call office. Available date in May for surgery is 05/28/2022 at [facility]. Will schedule pre-op once patient has new insurance in April documented in this encounterMain [facility] Center05-05-2022 History of Present illness Narrative* Kyleigh Saucedo [...] L4 SAB0 IAB0 Ectopic0 Multiple0 Live Births0 Burlap Man History LMP: 05/20/2021, Having periods Age at Menarche: Age at First : Age at Menopause: [place]urlap Man History Comments: Sexual Activity: Not Currently; Male Contraception: Tubal Ligation No past medical history on file. PAST SURGICAL HISTORY Procedure Laterality Date DILATION & CURETTAGE 1996 LIGATE FALLOPIAN TUBE 1996 PAST SURGICAL HISTORY OF Right 04/19/2020 intraocular lens implant PAST SURGICAL HISTORY OF 03/31/2021 Biontronik stent REBEL CORONARY PLAT CHROMIUM BARE METAL STENT SYS [id number], 144 CM 06/26/2014 REMOVAL GALLBLADDER 2013 FAMILY [...] Making Kyleigh Saucedo MD documented in this encounterMain [facility] Center04-15-2022 Miscellaneous Notes* Telephone Encounter - Margy Brown MD - 02/27/2022 12:16 PM EDT Will file but please schedule her for follow up visit with RR thanks * Telephone Encounter - Kristen Duran LPN - 02/27/2022 11:03 AM EDT See pt's mychart refill request and advise. Kristen Duran LPN documented in this encounterMain [facility] Medical Center04-15-2022 Miscellaneous Notes* Telephone Encounter - Kristen Duran [...] Multiple refills since then documented in this encounterMain [facility] Center11-08-2021 Miscellaneous Notes* Telephone Encounter - Tonie Cortez [...] this large she will likely need MRI ([facility], fibroid protocol), EMB and we will need to coordinate with her jewel inspector about care. Can see DM tomorrow, use both 820 and 840 slots or can use KJ afternoon slots [phone] and 340 slots to give enough time. Thanks. Kyleigh Saucedo MD documented in this encounterMain Campus Medical Center05-17-2021 Evaluation note* Diagnosis Onset Date Resolution Status High cholesterol acute Essential (primary) hypertension chronic History of coronary artery stent placement March 31, 2 021 resolved [facility] Work Phone: Consult note Author Ck Cotto [facility] Note Date/Time April 02, 2025 1:54p [facility] Medical Records Department [address] [place] [address] Anesthesia Postop Eval II 04/02/25 1305 MR#: [id number] Acct: [id number] Name: UZMA MCDONALD Rep #:[id number] : 1970 54 From: Ck Cotto MD PCP: Dr. David Fink MD Status:REG S DC Y Race: C Location: [place] [address]- Anesthesia Postop Eval I Sum Postop Eval Completion status Anesthesia document: Postop Eval 1 completed: Yes Anesthesia Postop Eval I Summary Anesthesia Postop Eval I Summary: Anesthesia Postop Eval I: Assessment Summary Airway patent Yes 04/02/25 12:06 JOURNEYMAN MOLDER.HBARR Spontaneous unlabored Yes 04/02/25 12:06 JOURNEYMAN MOLDER.HBARR respirations Mental status Awake 04/02/25 12:06 JOURNEYMAN MOLDER.HBARR nausea No 04/02/25 12:06 JOURNEYMAN MOLDER.HBARR Vomiting No 04/02/25 12:06 JOURNEYMAN MOLDER.HBARR Anesthesia Postop Eval I: Fluid Summary Crystalloid volume administer 500 04/02/25 12:06 JOURNEYMAN MOLDER.HBARR (ml) Colloids volume administered ( ml) Blood Product volume administered (ml) Total IV fluid infused 500 04/02/25 12:06 JOURNEYMAN MOLDER.HBARR Anesthesia Postop Eval I: Summary Notes Anesthesia Complication No 04/02/25 12:06 JOURNEYMAN MOLDER.HBARR Anesthesia Complication Comment: Post-operative progress note Anesthesia: Postop Eval II Evaluation Mental status: Awake Pain Level: 0 nausea: No Vomiting: No 04/02/25 1305 <Electronically signed by Ck Cotto MD > Date _ Ck Cotto MD Cosigner Signature: Date CC: ~ Signed [facility] Work Phone: Discharge summary Author Theo Richard [facility] Note Date/Time April 02, 2025 12:19 pm [facility] Medical Records Department [address] [place] [address] Instructions for Home/Discharge Instructions 04/02/25 1218 MR#: [id number] Acct: [id number] Name: UZMA MCDONALD Rep #:[id number] : 1970 54 From: Theo villegas [...] to schedule 2 week follow up appointment. [phone] Test Results: Test results from this visit will be discussed in further detail at your follow- up appointment, if applicable. Discharge Plan Admission Attending Provider: Theo Richard Primary Care Provider: David Fink Instructions Print Language: Wallisian Discharge Orders/Prescriptions Prescriptions: No Action sertraline [Zoloft] [...] CC: Dr. David Fink MD ~ Signed [facility] Work Phone: Evaluation note* Diagnosis Menorrhagia with irregular cycle- Primary Excessive or frequent menstruation Uterine leiomyoma, unspecified location Iron deficiency anemia due to chronic blood loss Iron deficiency anemia secondary to blood loss (chronic) documented in this encounter [facility] note* Diagnosis Cough- Primary URI, acute Acute upper respiratory infections of unspecified site documented in this encounter [facility] note* Diagnosis Menorrhagia with irregular cycle- Primary Excessive or frequent menstruation Uterine leiomyoma, unspecified location Iron deficiency anemia due to chronic blood loss Iron deficiency anemia secondary to blood loss (chronic) [facility] noteNo assessment information availableWSumma [facility] Work Phone: Evaluation note* Diagnosis Onset Date Resolution Status Menorrhagia acute Uterine fibroid acute Anemia due to chronic blood loss chronic [facility] Work Phone: Evaluation note* Diagnosis Uterine leiomyoma, unspecified location- Primary Iron deficiency anemia due to chronic blood loss Iron deficiency anemia secondary to blood loss (chronic) Menorrhagia with regular cycle Excessive or frequent menstruation [facility]* Diagnosis Postop check- Primary Follow-up examination, following unspecified surgery [facility]* Diagnosis Coronary artery disease of [place] heart with stable angina pectoris, unspecified vessel or lesion type (HCC)- Primary Blood in stool Hyperglycemia Other abnormal glucose Tobacco use Tobacco use disorder Hyperlipidemia, mixed Mixed hyperlipidemia Neck mass Swelling, mass, or lump in head and neck [facility]* Diagnosis Hyperglycemia- Primary Other abnormal glucose documented in this encounter [facility] note* Diagnosis Obesity, Class I, BMI 30-34.9 Obesity, unspecified documented in this encounter [facility] note* Diagnosis Coronary artery disease of [place] heart with stable angina pectoris, unspecified vessel [...] disorder with anxiety documented in this encounter [facility] note* Diagnosis COVID-19- Primary documented in this encounter [facility] note* Diagnosis GERD without esophagitis- Primary Esophageal reflux Adjustment disorder with other symptom documented in this encounter [facility] note* Diagnosis Encounter for screening mammogram for malignant neoplasm of breast Other screening mammogram documented in this encounter [facility] note* Diagnosis Acute cough- Primary Viral URI Acute upper respiratory infections of unspecified site Viral bronchitis Acute bronchitis Eye redness Redness or discharge of eye documented in this encounter [facility] note* Diagnosis Acute cough- Primary Rhinosinusitis Unspecified sinusitis (chronic) documented in this encounter [facility] note* Diagnosis Acute cough- Primary Bronchitis Bronchitis, not specified as acute or chronic Acute cough documented in this encounter [facility] note* Diagnosis Acute cough documented in this encounter [facility] note* Diagnosis Trigger little finger of right hand Trigger finger (acquired) Right elbow pain Pain in joint, upper arm documented in this encounter [facility] note* Diagnosis Cough documented in this encounter [facility] note* Diagnosis Encounter for screening mammogram for breast cancer- Primary documented in this encounter [facility] note* Diagnosis Encounter for screening mammogram for malignant neoplasm of breast- Primary Other screening mammogram documented in this encounter [facility] note* Diagnosis Encounter for screening mammogram for breast cancer documented in this encounter [facility] note* Diagnosis Burning with urination- Primary Dysuria documented in this encounter [facility] note* Diagnosis Pelvic mass- Primary Abdominal or pelvic swelling, mass or lump, unspecified site documented in this encounter [facility] note* Diagnosis Pelvic mass in female- Primary documented in this encounter [facility] note* Diagnosis Pelvic mass- Primary Abdominal or pelvic swelling, mass or lump, unspecified site Pelvic mass Abdominal or pelvic swelling, mass or lump, unspecified site Intra-abdominal and pelvic swelling, mass and lump, unspecified site documented [facility] encounter [facility]* Diagnosis Pelvic mass in female- Primary Postoperative follow-up Follow-up examination, following unspecified surgery Yeast infection of the skin Candidiasis of skin and nails [facility]* 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, 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 Status: Signed HPI Subjective Date of Service 04/19/25 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 The patient was seen in [facility] emergency room January 08, 2025 with urinary [...] activity and tumor cell necrosis. IHC at [facility] positive for SMA, negative for desmin, STAT6, pancytokeratin, S100 and CD34. [facility] showed negative Desmin, negative Caldesmon, ER diffuse [...] omentectomy. * Docetaxel gemcitabine April 19, 2025 [facility] Medical History Encounter for education Cancer Back [...] no focal motor deficits Coordination / Balance: brwcox-id-zzeg test normal Speech: speech normal Gait (Neuro): [...] showed no malignant cells. Was seen at [facility] sarcoma clinic by Dr. Cunningham in March [...] discussed with patient . Imani Persaud MD Office Services Specialist, [facility] Divisions of Medical Oncology & Hematology Department of Internal Medicine [place] [address] This note was generated using a voice recognition system software. Although itwas reviewed by the author prior to finalization, it may still contain incorrectwords, spelling, and punctuation that were not noted when reviewing prior to saving. If a clinically significant typo or inaccurately typed phrase is noted, please notify the author. 04/19/25 0941 <Electronically signed by Imani jones MD> Date _ Imani Persaud MD Cosigner Signature: Date (if applicable) CC: ~ [employer] Work Phone: [facility] for referral (narrative)* Diagnostic Procedure Only (Routine) - Pending Review Specialty Diagnoses / Procedures Referred By Contac t Referred To Contact US IMAGING Diagnoses Neck mass Procedures US HEAD/NECK SOFT TISSUE OTHER US SOFT TISSUE HEAD & NECK REAL TIME IMGE DOCM David Fink MD [address] [place] [address] Us Imaging Referral ID Status Reason Start Date Expiration Date Visits Requested Visits Authorized [id number] Pending Review Auto-Generat ed Referral 07/27/2022 08/26/2023 1 1 * Consult, Test, Treat (Routine) - Authorized Specialty Diagnoses / Procedures Referred By Contac t Referred To Contact General Surgery Diagnoses Blood in stool Procedures CONSULT TO GENERAL SURGERY OFFICE/OUTPATIENT [facility] 60-74 MINUTES David Fink MD [address] [place] [address] Referral ID Status Reason Start Date Expiration Date Visits Requested Visits Authorized [id number] Authorized PCP Requested Referral 07/27/2022 07/27/2023 1 1 [facility] for referral (narrative)* Diagnostic Procedure Only (Routine) - Closed Specialty Diagnoses / Procedures Referred By Contac t Referred To Contact BR IMAGING Diagnoses Obesity, Class I, BMI 30-34.9 Procedures BRITTANY SCREENING SCREENING MAMMOGRAPHY BI 2-VIEW BREAST INC CAD Sunday Cr PA-C [address] [place] [address] Br Imaging [address] [place] [address] Referral ID Status Reason Start Date Expiration Date V isits Requested Visits Authorized [id number] Closed Auto-Generate d Referral 07/23/2022 08/22/2023 1 1 [facility] for referral (narrative)* Outpatient Procedure (Routine) - Authorized Specialty Diagnoses / Procedures Referred By Contac t Referred To Contact [facility] Diagnoses Numbness Procedures EMG(NEURO/NI) NERVE CONDUCTION STUDIES 9-10 STUDIES David Fink MD [address] [place] [address] Neurological [place] [address] [place] [address] Referral ID Status Reason Start Date Expiration Date Visits Requested Visits Authorized [id number] Authorized Auto-Generat ed Referral 01/26/2023 01/27/2024 1 1 * Diagnostic Procedure Only (Routine) - Closed Specialty Diagnoses / Procedures Referred By Contac t Referred To Contact XR IMAGING Diagnoses Right elbow pain Procedures XR ELBOW GENERAL 2V AP/LAT RIGHT RADEX ELBOW 2 VIEWS David Fink MD [address] [place] [address] Xr Imaging Referral ID Status Reason Start Date Expiration Date V isits Requested Visits Authorized [id number] Closed Auto-Generate d Referral 01/26/2023 02/25/2024 1 1 * Diagnostic Procedure Only (Routine) - Closed Specialty Diagnoses / Procedures Referred By Contac t Referred To Contact XR IMAGING Diagnoses Trigger little finger of right hand Procedures XR HAND GENERAL 3V PA/LAT/OBL RIGHT RADEX HAND MINIMUM 3 VIEWS David Fikn MD [address] [place] [address] Xr Imaging Referral ID Status Reason Start Date Expiration Date V isits Requested Visits Authorized [id number] Closed Auto-Generate d Referral 01/26/2023 02/25/2024 1 1 [facility] for referral (narrative)* Diagnostic Procedure Only (Routine) - Closed Specialty Diagnoses / Procedures Referred By Contac t Referred To Contact XR IMAGING Diagnoses Right elbow pain Procedures XR ELBOW GENERAL 2V AP/LAT RIGHT RADEX ELBOW 2 VIEWS David Fink MD [address] [place] [address] [place] [address] Referral ID Status Reason Start Date Expiration Date V isits Requested Visits Authorized [id number] Closed Auto-Generate d Referral 01/26/2023 02/25/2024 1 1 * Diagnostic Procedure Only (Routine) - Closed Specialty Diagnoses / Procedures Referred By Contac t Referred To Contact XR IMAGING Diagnoses Trigger little finger of right hand Procedures XR HAND GENERAL 3V PA/LAT/OBL RIGHT RADEX HAND MINIMUM 3 VIEWS David Fink MD [address] [place] [address] [place] [address] Referral ID Status Reason Start Date Expiration Date V isits Requested Visits Authorized [id number] Closed Auto-Generate d Referral 01/26/2023 02/25/2024 1 1 [facility] for referral (narrative)* Diagnostic Procedure Only (Routine) - Authorized Specialty Diagnoses / Procedures Referred By Raviac t Referred To Contact BR IMAGING Diagnoses Encounter for screening mammogram for breast cancer Procedures BRITTANY SCREENING W ALFONSO SCREENING DIGITAL BREAST TOMOSYNTHESIS BI SCREENING MAMMOGRAPHY BI 2-VIEW BREAST INC CAD Susy Smith APRN.CNP [address] [place] [address] Br Imaging [address] [place] [address] Referral ID Status Reason Start Date Expiration Date Visits Requested Visits Authorized [id number] Authorized Auto-Generat ed Referral 10/25/2025 1 1 [facility] for referral (narrative)* Diagnostic Procedure Only (Routine) - New Request Specialty Diagnoses / Procedures Referred By Contac t Referred To Contact BR IMAGING Diagnoses Encounter for screening mammogram for malignant neoplasm of breast Procedures BRITTANY SCREENING W ALFONSO SCREENING DIGITAL BREAST TOMOSYNTHESIS BI SCREENING MAMMOGRAPHY BI 2-VIEW BREAST INC CAD Susy Smith APRN.CNP [address] [place] [address] [facility] [address] [place] [address] Referral ID Status Reason Start Date Expiration Date Visits Requested Visits Authorized [id number] New Request Auto-Generat ed Referral 10/25/2025 1 1 [facility] for referral (narrative)No reason for referral information availableWSumma [facility] Work Phone: Reason for visit Narrative* Diagnostic Procedure Only (Routine) - Closed Specialty Diagnoses / Procedures Referred By Lisa melchor Referred To Contact BR IMAGING Diagnoses Obesity, Class I, BMI 30-34.9 Procedures BRITTANY SCREENING SCREENING MAMMOGRAPHY BI 2-VIEW BREAST INC CAD Sunday Cr PA-C [address] [place] [address] Br Imaging [address] [place] [address] Referral ID Status Reason Start Date Expiration Date V isits Requested Visits Authorized [id number] Closed Auto-Generate d Referral 07/23/2022 08/22/2023 1 1 [facility] for visit Narrative* Diagnostic Procedure Only (Routine) - Closed Specialty Diagnoses / Procedures Referred By Lisa t Referred To Contact BR IMAGING Diagnoses Encounter for screening mammogram for malignant neoplasm of breast Procedures BRITTANY SCREENING SCREENING MAMMOGRAPHY BI 2-VIEW BREAST INC CAD David Fink MD [address] [place] [address] Br Imaging [address] [place] [address] Referral ID Status Reason Start Date Expiration Date V isits Requested Visits Authorized [id number] Closed Auto-Generate d Referral 08/31/2023 09/29/2024 1 1 [facility] for visit Narrative* Diagnostic Procedure Only (Routine) - Closed Specialty Diagnoses / Procedures Referred By Lisa melchor Referred To Contact XR IMAGING Diagnoses Right elbow pain Procedures XR ELBOW GENERAL 2V AP/LAT RIGHT RADEX ELBOW 2 VIEWS David Fink MD [address] [place] [address] [place] [address] Referral ID Status Reason Start Date Expiration Date V isits Requested Visits Authorized [id number] Closed Auto-Generate d Referral 01/26/2023 02/25/2024 1 1 [facility] for visit Narrative* Diagnostic Procedure Only (Routine) - Closed Specialty Diagnoses / Procedures Referred By Lisa melchor Referred To Contact BR IMAGING Diagnoses Encounter for screening mammogram for breast cancer Procedures BRITTANY SCREENING W ALFONSO SCREENING DIGITAL BREAST TOMOSYNTHESIS BI SCREENING MAMMOGRAPHY BI 2-VIEW BREAST INC CAD Susy Smith APRN.UMBRELLA SUPERVISOR [address] [place] [id number] [facility] [address] [place] [address] Referral ID Status Reason Start Date Expiration Date V isits Requested Visits Authorized [id number] Closed Auto-Generate d Referral 09/25/2024 10/25/2025 1 1 [facility] for visit Narrative* Auth/Cert (Routine) Specialty Diagnoses / Procedures Referred By Lisa melchor Referred To Contact Diagnoses Intra-abdominal and pelvic swelling, mass and lump, unspecified site Procedures MO EXPLORATORY LAPAROTOMY CELIOTOMY W/WO BIOPSY SPX MO LAPAROSCOPY W/RMVL ADNEXAL STRUCTURES MO LMTD LMPHADEC STAGING SPX PEL&PARA-AORTIC MO LAPAROSCOPY SURG W/BX SINGLE/MULTIPLE LAPAROTOMY, EXPLORATORY LEFT LAPAROSCOPIC, SALPINGO-OOPHORECTOMY POSSIBLE LYMPHADENECTOMY, PARA-AORTIC OR PELVIC, LIMITED, FOR STAGING LAPAROSCOPY, WITH BIOPSY Darvin Grady MD [address] [place] [address] Phone: tel: fax: Referral ID Status Reason Start Date Expiration Date Visits Re quested Visits Authorized [id number] 01/17/2025 1 1 [facility] [facility] Chief Complaint and Reason for Visit Chief [...] 12:54pm 3 W[address] POST OP [facility] GARDY(PATH/NOTE -SCANNED ) February 26, 2025 10:59am PORT [...] Primary leiomyosarcoma of pelvis April 262024 8:12am Chief Complaint Admit Date LOWER ABDOMINAL PAIN [...] LABS TX-NEW April 26, 2025 8:12 am FEVER April 28, 2025 7:28 pm Chief Complaint Admit Date LOWER ABDOMINAL PAIN [...] Y FU April 18, 2025 10:44 am Reason for Visit Admit Date Pelvic [...] stent placeme nt April 18, 2025 10:44am Chief Complaint Admit Date LOWER ABDOMINAL PAIN [...] LABS - GEMCITABINE April 19, 2025 8:09am 1WK LABS TX-NEW April 26, 2025 8:12 am FEVER April 28, 2025 7:28 pm NEW START - LABS - GEMCITABINE April 10:15am 1WK LABS TOX CHECK May 03, 2025 10:2 0am Reason for Visit Admit Date Pelvic mass [...] Primary leiomyosarcoma of pelvis April 262024 8:12am Primary leiomyosarcoma of pelvis May 032024 10:20am Advance Directives Advance Directive Response Recorded Date/ Time Living Will No May 21, 2022 1 1:02am Power of Dictaphone Typist No May 21, 2022 11:02am Advance Directive Response Recorded Date/ Time Living Will No May 28, 2022 2:48pm Power of Dictaphone Typist No May 28 2:48pm Advance Directive Response Recorded Date/ Time Living Will No May 28, 2022 1:48pm Power of Dictaphone Typist No May 28 1:48pm Date Activated Date Inactivated Comments 01/26/2025 6:33 AM 01/27/2025 2:16 PM Advance Directive Response Recorded Date/ Time Living Will No January 08 2 025 8:27pm Power of Dictaphone Typist No January 08, 2025 8:27pm Date Activated Date Inactivated Comments 01/26/2025 6:33 AM 01/27/2025 2:16 PM Advance Directive Response Recorded Date/ Time Living Will No January 08, 2 025 8:27pm Do you have a Healthcare Power of Dictaphone Typist? No January 08, 2025 8:27pm Advance Directive Response Recorded Date/ Time Living Will No January 08 025 8:27pm Do you have a Healthcare Power of Dictaphone Typist? No January 08, 2025 8:27pm Do you have a Healthcare Power of Dictaphone Typist? No March 28, 2025 2:20pm Advance Directive Response Recorded Date/ Time Advance Directives on File No April 19, 2025 10:08am Living Will No April 19, 2025 1 0:08am Do you have a Healthcare Power of Dictaphone Typist? No April 19, 2025 10:08am Advance Directives No April 19 10:08am Living Will No January 08 025 8:27pm Do you have a Healthcare Power of Dictaphone Typist? No January 08, 2025 8:27pm Do you have a Healthcare Power of Dictaphone Typist? No March 28, 2025 2:20pm Advance Directive Response Recorded Date/ Time Advance Directives on File No April 26, 2025 10:00am Living Will No April 26, 2025 10:00am Do you have a Healthcare Power of Dictaphone Typist? No April 26, 2025 10:00am Advance Directives No April 26 10:00am Do you have a Healthcare Power of Dictaphone Typist? No April 28, 2025 7:34pm Living Will No January 08 8:27pm Do you have a Healthcare Power of Dictaphone Typist? No January 08, 2025 8:27pm Do you have a Healthcare Power of Dictaphone Typist? No March 28, 2025 2:20pm Family History Relationship Condition Age at Onset Recorded Date/T [...] or prosecute any alcohol or drug abuse patient.[facility] Center[facility] the event this information is protected by the Federal Confidentiality of Alcohol and Drug Abuse Patient Records regulations: The Federal rules restrict any use of the information to criminally investigate or prosecute any alcohol or drug abuse patient.[facility] CenterIn the event this information is protected by the Federal Confidentiality of Alcohol and Drug Abuse Patient Records regulations: The Federal rules restrict any use of the information to criminally investigate or prosecute any alcohol or drug abuse patient.[facility] CenterIn the event this information is protected by the Federal Confidentiality of Alcohol and Drug Abuse Patient Records regulations: The Federal rules restrict any use of the information to criminally investigate or prosecute any alcohol or drug abuse patient.[facility] CenterIn the event this information is protected by the Federal Confidentiality of Alcohol and Drug Abuse Patient Records regulations: The Federal rules restrict any use of the information to criminally investigate or prosecute any alcohol or drug abuse patient.[facility] CenterIn the event this information is protected by the Federal Confidentiality of Alcohol and Drug Abuse Patient Records regulations: The Federal rules restrict any use of the information to criminally investigate or prosecute any alcohol or drug abuse patient.[facility] CenterIn the event this information is protected by the Federal Confidentiality of Alcohol and Drug Abuse Patient Records regulations: The Federal rules restrict any use of the information to criminally investigate or prosecute any alcohol or drug abuse patient.[facility] CenterIn the event this information is protected by the Federal Confidentiality of Alcohol and Drug Abuse Patient Records regulations: The Federal rules restrict any use of the information to criminally investigate or prosecute any alcohol or drug abuse patient.[facility] CenterIn the event this information is protected by the Federal Confidentiality of Alcohol and Drug Abuse Patient Records regulations: The Federal rules restrict any use of the information to criminally investigate or prosecute any alcohol or drug abuse patient.[facility] CenterIn the event this information is protected by the Federal Confidentiality of Alcohol and Drug Abuse Patient Records regulations: The Federal rules restrict any use of the information to criminally investigate or prosecute any alcohol or drug abuse patient.[facility] CenterIn the event this information is protected by the Federal Confidentiality of Alcohol and Drug Abuse Patient Records regulations: The Federal rules restrict any use of the information to criminally investigate or prosecute any alcohol or drug abuse patient.[facility] CenterIn the event this information is protected by the Federal Confidentiality of Alcohol and Drug Abuse Patient Records regulations: The Federal rules restrict any use of the information to criminally investigate or prosecute any alcohol or drug abuse patient.[facility] CenterIn the event this information is protected by the Federal Confidentiality of Alcohol and Drug Abuse Patient Records regulations: The Federal rules restrict any use of the information to criminally investigate or prosecute any alcohol or drug abuse patient.[facility] CenterIn the event this information is protected by the Federal Confidentiality of Alcohol and Drug Abuse Patient Records regulations: The Federal rules restrict any use of the information to criminally investigate or prosecute any alcohol or drug abuse patient.[facility] CenterIn the event this information is protected by the Federal Confidentiality of Alcohol and Drug Abuse Patient Records regulations: The Federal rules restrict any use of the information to criminally investigate or prosecute any alcohol or drug abuse patient.[facility] CenterIn the event this information is protected by the Federal Confidentiality of Alcohol and Drug Abuse Patient Records regulations: The Federal rules restrict any use of the information to criminally investigate or prosecute any alcohol or drug abuse patient.[facility] CenterIn the event this information is protected by the Federal Confidentiality of Alcohol and Drug Abuse Patient Records regulations: The Federal rules restrict any use of the information to criminally investigate or prosecute any alcohol or drug abuse patient.[facility] CenterIn the event this information is protected by the Federal Confidentiality of Alcohol and Drug Abuse Patient Records regulations: The Federal rules restrict any use of the information to criminally investigate or prosecute any alcohol or drug abuse patient.[facility] CenterIn the event this information is protected by the Federal Confidentiality of Alcohol and Drug Abuse Patient Records regulations: The Federal rules restrict any use of the information to criminally investigate or prosecute any alcohol or drug abuse patient.[facility] CenterIn the event this information is protected by the Federal Confidentiality of Alcohol and Drug Abuse Patient Records regulations: The Federal rules restrict any use of the information to criminally investigate or prosecute any alcohol or drug abuse patient.[facility] CenterIn the event this information is protected by the Federal Confidentiality of Alcohol and Drug Abuse Patient Records regulations: The Federal rules restrict any use of the information to criminally investigate or prosecute any alcohol or drug abuse patient.[facility] CenterIn the event this information is protected by the Federal Confidentiality of Alcohol and Drug Abuse Patient Records regulations: The Federal rules restrict any use of the information to criminally investigate or prosecute any alcohol or drug abuse patient.[facility] CenterIn the event this information is protected by the Federal Confidentiality of Alcohol and Drug Abuse Patient Records regulations: The Federal rules restrict any use of the information to criminally investigate or prosecute any alcohol or drug abuse patient.[facility] CenterIn the event this information is protected by the Federal Confidentiality of Alcohol and Drug Abuse Patient Records regulations: The Federal rules restrict any use of the information to criminally investigate or prosecute any alcohol or drug abuse patient.[facility] CenterIn the event this information is protected by the Federal Confidentiality of Alcohol and Drug Abuse Patient Records regulations: The Federal rules restrict any use of the information to criminally investigate or prosecute any alcohol or drug abuse patient.[facility] CenterIn the event this information is protected by the Federal Confidentiality of Alcohol and Drug Abuse Patient Records regulations: The Federal rules restrict any use of the information to criminally investigate or prosecute any alcohol or drug abuse patient.[facility] CenterIn the event this information is protected by the Federal Confidentiality of Alcohol and Drug Abuse Patient Records regulations: The Federal rules restrict any use of the information to criminally investigate or prosecute any alcohol or drug abuse patient.[facility] CenterIn the event this information is protected by the Federal Confidentiality of Alcohol and Drug Abuse Patient Records regulations: The Federal rules restrict any use of the information to criminally investigate or prosecute any alcohol or drug abuse patient.[facility] CenterIn the event this information is protected by the Federal Confidentiality of Alcohol and Drug Abuse Patient Records regulations: The Federal rules restrict any use of the information to criminally investigate or prosecute any alcohol or drug abuse patient.[facility] CenterIn the event this information is protected by the Federal Confidentiality of Alcohol and Drug Abuse Patient Records regulations: The Federal rules restrict any use of the information to criminally investigate or prosecute any alcohol or drug abuse patient.[facility] CenterIn the event this information is protected by the Federal Confidentiality of Alcohol and Drug Abuse Patient Records regulations: The Federal rules restrict any use of the information to criminally investigate or prosecute any alcohol or drug abuse patient.[facility] CenterIn the event this information is protected by the Federal Confidentiality of Alcohol and Drug Abuse Patient Records regulations: The Federal rules restrict any use of the information to criminally investigate or prosecute any alcohol or drug abuse patient.[facility] CenterIn the event this information is protected by the Federal Confidentiality of Alcohol and Drug Abuse Patient Records regulations: The Federal rules restrict any use of the information to criminally investigate or prosecute any alcohol or drug abuse patient.[facility] CenterIn the event this information is protected by the Federal Confidentiality of Alcohol and Drug Abuse Patient Records regulations: The Federal rules restrict any use of the information to criminally investigate or prosecute any alcohol or drug abuse patient.[facility] CenterIn the event this information is protected by the Federal Confidentiality of Alcohol and Drug Abuse Patient Records regulations: The Federal rules restrict any use of the information to criminally investigate or prosecute any alcohol or drug abuse patient.[facility] CenterIn the event this information is protected by the Federal Confidentiality of Alcohol and Drug Abuse Patient Records regulations: The Federal rules restrict any use of the information to criminally investigate or prosecute any alcohol or drug abuse patient.[facility] CenterIn the event this information is protected by the Federal Confidentiality of Alcohol and Drug Abuse Patient Records regulations: The Federal rules restrict any use of the information to criminally investigate or prosecute any alcohol or drug abuse patient.[facility] CenterIn the event this information is protected by the Federal Confidentiality of Alcohol and Drug Abuse Patient Records regulations: The Federal rules restrict any use of the information to criminally investigate or prosecute any alcohol or drug abuse patient.[facility] CenterIn the event this information is protected by the Federal Confidentiality of Alcohol and Drug Abuse Patient Records regulations: The Federal rules restrict any use of the information to criminally investigate or prosecute any alcohol or drug abuse patient.[facility] Reason for Visit (unrecogniz ed section and content) Reason Comments Appointment Reason Onset Date Comments Refill Request 02/27/2022 Reason Comments Schedule Surgery Reason Comments Discussion Specialty Diagnoses / Procedures Referred By Lisa t Referred To Contact [employer] Diagnoses Medication and surgery Procedures [facility] SPECIALIST OFFICE VISIT Kyleigh Saucedo MD [address] [place] [address] Kyleigh Saucedo MD [address] [place] [address] Referral ID Status Reason Start Date Expiration Date V isits Requested Visits Authorized [id number] Closed Financial Clearance Required - Self Pay [...] swelling, mass and lump, unspecified site Procedures MO OFFICE/OUTPATIENT NEW HIGH MDM 60 MINUTES Imani Persaud [address] [facility], [address] [place] [address] Phone: tel: fax: [facility] Gynecologic Oncology - [place] [address] [facility] [address] [facility] [address] [place] [address] Phone: tel: fax: Referral ID Status Reason Start Date Expiration Date V isits Requested Visits Authorized [id number] Pending Review 01/16/2025 01/16/2026 1 1 Reason Onset Date Comments Other 01/19/[address] 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 Imani Persaud [facility] [address] [place] [address] Phone: tel: fax: Christopher Cunningham MD [address] [place] [address] Phone: tel: fax: Referral ID Status Reason Start Date Expiration Date Visits Requested Visits Authorized [id number] New Request Clinical Trial 02/27/2025 03/24/2026 1 1 Goals (unrecognized section and content) Goals may be documented in a n alternate sectionGoals may be documented in an alternate sectionGoals may be documented in an alternate sectionGoals may be documented in an alternate sectionGoals may be documented in an alternate section Care Teams (unrecognized sec tion and content) Chain Testing Machine Operator Relationship Specialty Start Date End Date David Fink MD [address] [place] [address] PCP - General Family Practice 07/27/22 Chain Testing Machine Operator Relationship Specialty Start Date End Date David Fink MD [address] [place] [address] PCP - General Family Practice 07/27/22 Chain Testing Machine Operator Relationship Specialty Start Date End Date David Fink MD [address] [place] [address] PCP - General Family Practice 07/27/22 Chain Testing Machine Operator Relationship Specialty Start Date End Date David Fink MD [address] [place] [address] PCP - General Family Practice 07/27/22 Chain Testing Machine Operator Relationship Specialty Start Date End Date David Fink MD [address] [place] [address] PCP - General Family Medicine 07/27/22 Chain Testing Machine Operator Relationship Specialty Start Date End Date David Fink MD [address] [place] [address] PCP - General Family Medicine 07/27/22 Team Status: Active Member Role Status Dates Megaan Weinstein RN DIGESTIVE, RN DIGESTIVE-C Family Provider Active Dr. David Fink MD Primary Care Provider Active Team Status: Inactive Member Role Status Dates No Primary Care Physician Referring Provider Active [...] Dr. Joni Michel MD Attending Provider Active Chain Testing Machine Operator Relationship Specialty Start Date End Date David Fink MD [address] [place] [address] PCP - General Family Medicine 07/27/22 Chain Testing Machine Operator Relationship Specialty Start Date End Date David Fink MD [address] [place] [address] PCP - General Family Medicine 07/27/22 Chain Testing Machine Operator Relationship Specialty Start Date End Date David Fink MD [address] [place] [address] PCP - General Family Medicine 07/27/22 Chain Testing Machine Operator Relationship Specialty Start Date End Date David Fink MD [address] [place] [address] PCP - General Family Medicine 07/27/22 Chain Testing Machine Operator Relationship Specialty Start Date End Date David Fink MD [address] [place] [address] PCP - General Family Medicine 07/27/22 Chain Testing Machine Operator Relationship Specialty Start Date End Date David Fink MD [address] [place] [address] PCP - General Family Medicine 07/27/22 Chain Testing Machine Operator Relationship Specialty Start Date End Date David Fink MD [address] [place] [address] PCP - General Family Medicine 07/27/22 Chain Testing Machine Operator Relationship Specialty Start Date End Date David Fink MD [address] [place] [address] PCP - General Family Medicine 07/27/22 Chain Testing Machine Operator Relationship Specialty Start Date End Date David Fink MD [address] [place] [address] PCP - General Family Medicine 07/27/22 Chain Testing Machine Operator Relationship Specialty Start Date End Date David Fink MD [address] [place] [address] PCP - General Family Medicine 07/27/22 Chain Testing Machine Operator Relationship Specialty Start Date End Date David Fink MD [address] [place] [address] PCP - General Family Medicine 07/27/22 Chain Testing Machine Operator Relationship Specialty Start Date End Date David Fink MD [address] [place] [address] PCP - General Family Medicine 07/27/22 Chain Testing Machine Operator Relationship Specialty Start Date End Date David Fink MD [address] [place] [address] PCP - General Family Medicine 07/27/22 Chain Testing Machine Operator Relationship Specialty Start Date End Date David Fink MD [address] [place] [address] PCP - General Family Medicine 07/27/22 Chain Testing Machine Operator Relationship Specialty Start Date End Date David Fink MD [address] [place] [address] PCP - General Family Medicine 07/27/22 Hilda Morin APRN.UMBRELLA SUPERVISOR [address] [facility] [place] [address] Leadership Program Internship Family Medicine 10/23/24 India Clifton APRN.UMBRELLA SUPERVISOR [address] [place] [address] Leadership Program Internship [facility] 10/23/24 Chain Testing Machine Operator Relationship Specialty Start Date End Date David Fink MD [address] [facility], [place] [address] PCP - General Family Medicine 07/27/22 Hilda Morin, TOBACCO SIEVE OPERATOR.UMBRELLA SUPERVISOR [address] [facility] [place] [address] Leadership Program Internship Family [facility] 10/23/24 India Clifton, TOBACCO SIEVE OPERATOR.UMBRELLA SUPERVISOR [address] [place] [address] [facility] Chain Testing Machine Operator Relationship Specialty Start Date End Date David Fink MD [address] [place] [address] PCP - General Family Medicine 01/17/25 Darvin Grady MD [address] [facility] [address] [place] [address] Consulting Physician Gynecologic Oncology 01/16/25 Chain Testing Machine Operator Relationship Specialty Start Date End Date David Fink MD [address] [place] [address] PCP - General Family Medicine 01/17/25 Darvin Grady MD [address] [facility] [address] [place] [address] Consulting Physician Gynecologic Oncology 01/16/25 Chain Testing Machine Operator Relationship Specialty Start Date End Date David Fink MD [address] [place] [address] PCP - General Family Medicine 01/17/25 Darvin Grady MD [address] [facility] [address] [place] [address] Consulting Physician Gynecologic Oncology 01/16/25 Chain Testing Machine Operator Relationship Specialty Start Date End Date David Fink MD [address] [place] [address] PCP - General Family Medicine 01/17/25 Darvin Grady MD [address] [facility] [address] [place] [address] Consulting Physician Gynecologic Oncology 01/16/25 Team Status: [...] January 12, 2025 End: January 12, 2025 Chain Testing Machine Operator Relationship Specialty Start Date End Date David Fink MD [address] [place] [address] PCP - General Family Medicine 01/17/25 Darvin Grady MD [address] [place] [address] Consulting Physician Gynecologic Oncology 01/16/25 Ashok Herbert, TOBACCO SIEVE OPERATOR - UMBRELLA SUPERVISOR [address] [place] [address] Nurse Practitioner Nurse Practitioner 02/14/25 Chain Testing Machine Operator Relationship Specialty Start Date End Date David Fink MD [address] [place] [address] PCP - General Family Medicine 01/17/25 Darvin Grady MD [address] [facility] [address] [place] [address] Consulting Physician Gynecologic Oncology 01/16/25 Ashok Herbert, TOBACCO SIEVE OPERATOR - UMBRELLA SUPERVISOR [address] [place] [address] Nurse Practitioner Nurse Practitioner 02/14/25 Chain Testing Machine Operator Relationship Specialty Start Date End Date David Fink MD [address] [place] [address] PCP - General Family Medicine 01/17/25 Darvin Grady MD [address] [place] [address] Consulting Physician Gynecologic Oncology 01/16/25 Ashok Herbert, TOBACCO SIEVE OPERATOR - UMBRELLA SUPERVISOR [address] [place] [address] Nurse Practitioner Nurse Practitioner 02/14/25 Chain Testing Machine Operator Relationship Specialty Start Date End Date David Fink MD [address] [place], [place] [id number] PCP - General Family Medicine 01/17/25 Darvin Grady MD [address] [place] [address] Consulting Physician Gynecologic Oncology 01/16/25 Ashok Herbert, TOBACCO SIEVE OPERATOR - UMBRELLA SUPERVISOR [address] [facility] [place] [address] Nurse Practitioner Nurse Practitioner 02/14/25 Chain Testing Machine Operator Relationship Specialty Start Date End Date David Fink MD [address] [place] [address] PCP - General Family Medicine 01/17/25 Darvin Grady MD [address] [place] [address] Consulting Physician Gynecologic Oncology 01/16/25 Ashok Herbert, TOBACCO SIEVE OPERATOR - UMBRELLA SUPERVISOR [address] [place] [address] Nurse Practitioner Nurse Practitioner 02/14/25 Team Status: [...] Other Provider Active Start: April 02, 2025 Chain Testing Machine Operator Relationship Specialty Start Date End Date David Fink MD [address] [facility] [place], [place] [id number] PCP - General Family Medicine 02/27/25 Imani Persaud MB [facility] [address] [place], [place] [id number] Oncologist Medical Oncology 02/27/25 Shannan Kearney RN Registered Nurse 02/27/25 Team Status: Inactive Member Role Status Dates Dr. David Fink MD Primary Care Provider Active Start: April 04, 2025 End: April 04, 2025 Dr. David Fink MD Referring Provider Active Start: April 04, 2025 End: April 04, 2025 Delmis Corral RN DIGESTIVE, RN DIGESTIVE-C Attending Provider Active Start: April 04, 2025 End: April 04, 2025 Team Status: Inactive Member Role Status Dates Dr. David Fink MD Primary Care Provider Active Start: April 18, 2025 End: April 18, 2025 Dr. David Fink MD Referring Provider Active Start: April 18, 2025 End: April 18, 2025 Keron Ross RN DIGESTIVE, RN DIGESTIVE-C Attending Provider Active S tart: April 18, [...] April 26, 2025 End: April 26, 2025 Team Status: Inactive Member Role Status Dates Dr. David Fink MD Primary Care Provider Active Start: April 28, 2025 End: April 28, 2025 Dr. Girish Mcgarry DO Emergency Provider Active Start: April 28, 2025 End: April 28, 2025 Team Status: Active Member Role Status Dates Dr. David Fink MD Primary Care Provider Active Start: May 03, 2025 Dr. Imani Persaud MD Attending Provider Active Start: May 03, 2025 Dr. Imani Persaud MD Referring Provider Active Start: May 03, 2025 Team Status: Inactive Member Role Status Dates Dr. David Fink MD Primary Care Provider Active Start: May 03, 2025 End: May 03, 2025 Dr. David Fink MD Referring Provider Active Start: May 03, 2025 End: May 03, 2025 Delmis Corral RN DIGESTIVE, RN DIGESTIVE-C Attending Provider Active Start: May 03, 2025 End: May 03, 2025 Scheduled Active and Recently Administ ered [...] RN)2156 (Given - Provider: Veda Hickman RN) 0509 (Given - Provider: Veda Hickman RN)1400 [...] Veda Hickman RN)0125 (Stopped - Provider: Veda Hickman, RAMONE) clopidogrel (Plavix) tablet 75 mg 75 mg, [...] 58) 0900 (Not Given - Provider: Gladis Rubalcava, RAMONE - Reason: Other - Comment: Hold per [...] 0800 (Not Given - Provider: Gladis Rubalcava, RN - Reason: Patient/family refused - Comment: takes at night) sodium chloride 0.9% (NS) flush 10 mL 10 mL, IntraVENous, Every 12 hours scheduled (2 times per day), First dose on Wed01/26/25 at 2100, Phase II/On Unit 2157 (Given - Provider: Veda Hickman, RAMONE) 0914 (Given - Provider: Gladis Rubalcava, RN) Continuous Medication Order 01/25/2025 01/26/2025 01/27/2025 lactated [...] Whittaker CRNA) 0551 (Stopped - Provider: Veda Hickman, RAMONE) lactated Ringer's infusion () 100 mL/hr, IntraVENous, Continuous, Starting on Wed01/26/25 at 1030, For 6 hours 1209 (Rate/Dose Change - Provider: Jenny Torres RN)1954 (Stopped - Provider: Veda Hickman, RAMONE) PRN Medication Order 01/25/2025 01/26/2025 01/27/2025 absorbable [...] sedation for opioid reversal - MUST notify stator connector provider immediately after first dose, may give [...] section and content) DATE CREATED AUTHOR 02/16/2025 [facility] DATE CREATED AUTHOR AUTHOR'S ORGANIZ ATION 02/17/2025 [facility] DATE CREATED AUTHOR AUTHOR'S ORGANIZ ATION 04/15/2025 [facility] DATE CREATED AUTHOR AUTHOR'S ALETA ATION 05/03/2025 [facility] FOR RECORDS PERTAINING TO PATIENTS WHO ARE [...] BE BASED ON THE PRIMARY CLINICAL RECORDS. [facility]. provides no warranty or guarantee of the accuracy or completeness of information in this document.
--- NOTE | 2025-05-04 19:45 | RAD_ITS ---
EXAM: XR Chest, 2 Views CLINICAL INDICATION: FEVER TECHNIQUE: Frontal and lateral views of the chest. COMPARISON: No relevant prior studies available. FINDINGS: LUNGS AND PLEURAL SPACES: See below. HEART: Unremarkable. No cardiomegaly. MEDIASTINUM: Unremarkable. Normal mediastinal contour. BONES/JOINTS: Unremarkable. No acute fracture. TUBES, LINES AND DEVICES: Right-sided Mediport with the distal tip in the SVC. No pneumothorax. RAD/Chest PA and Lateral IMPRESSION: No acute cardiopulmonary process. Reading Location: [id number]
[2025-05-04 20:00] VITALS: BP 110/64; PULSE 83; RESP 20; TEMP 37.9; O2SAT 95
[2025-05-04 20:00] LABS: Absolute Neutrophil Count 0.1 X10^3/uL (2.0-7.7); Basophil# 0.02 X10^3/uL; Basophil% 2.4 % (0-1); Eosinophil# 0.03 X10^3/uL; Eosinophils% 3.6 % (0-5); Hematocrit 30.4 % (37-47); Hemoglobin 10.7 g/dL (12.0-15.0); Lymphocyte % 71.4 % (19-41); Mean Corp Hgb Conc 35.2 g/dL (32-36); Mean Corpuscular Hgb 28.5 pg (27.0-32.0); Mean Corpuscular Volume 81.1 fL (81-99); Mean Platelet Vol. 10.9 fl (6.2-12.0); Monocyte% 11.9 % (0-10); NRBC Flagged by Analyzer 4.8 % (0-5); Neutrophil # 0.05 X10^3/uL (2.7-7.7); Neutrophil % 5.9 % (47-70); POSITIVE COUNT YES; POSITIVE DIFFERENTIAL YES; POSITIVE MORPHOLOGY YES; RBC Distribution Width CV 12.4 % (11.6-14.6); RBC Distribution Width SD 36.2 fl (35.1-43.9); Red Blood Count 3.75 M/mm3 (4.2-5.4)
[2025-05-04 20:08] LABS: Platelet Count 35 K/mm3 (150-450)
[2025-05-04 20:10] LABS: Differential Indicated SCAN CRITERIA MET; White Blood Count 0.8 K/mm3 (4.4-11.0)
[2025-05-04 20:30] LABS: Lactic Acid < 1.0 mmol/L (0.0-2.0)
--- NOTE | 2025-05-04 20:31 | ED.RN ---
This RN went into room to administer atbx, pt asking if doctor has spoke with her cancer team, stating she doesn't want the atbx until they talk to her Cancer team. Notified ISAI Garcia of this and she went into room to talk with patient. Again, patient stated she would like to wait for atbx until they speak with her cancer team.
[2025-05-04 20:34] LABS: AST(SGOT) 43 U/L (<=31); Alanine Aminotransfer ALT/SGPT 49 U/L (<=34); Albumin, Serum 3.4 g/dL (3.5-5.0); Alkaline Phosphatase 90 U/L (35-104); Anion Gap 11 (5-15); BUN 8 mg/dL (4-19); BUN/Creat Ratio 13.7 RATIO (10-20); Calcium,Total 8.7 mg/dL (7.6-11.0); Carbon Dioxide 21.2 mmol/L (21.0-32.0); Chloride 101 mmol/L (98-108); Creatinine, Serum 0.59 mg/dL (0.70-1.20); EST Glomerular Filtration Rate 107 (>60); Estimated Creatinine Clearance 130.14 ml/min (50-250); Globulin 3.4 g/dL (2.2-4.2); Glucose 115 mg/dL (70-99); Potassium 3.7 mmol/L (3.3-5.1); Procalcitonin 0.11 ng/mL (<=0.10); Protein, Total 6.7 g/dL (5.9-8.4); Sodium Level 133 mmol/L (133-145); Total Bilirubin 0.62 mg/dL (0.00-1.30)
[2025-05-04 20:46] LABS: International Normalized Ratio 1.2
[2025-05-04 20:59] LABS: Differential Comment SCANNED; Platelet Estimate MKD DEC (ADEQ)
[2025-05-04 21:00] VITALS: BP 104/71; PULSE 91; RESP 17; TEMP 37.3; O2SAT 96
[2025-05-04 22:14] VITALS: BP 104/71; PULSE 91; RESP 17; TEMP 37.3; O2SAT 96
== END 2025-05-04 22:18 | disposition left against medical advice (07) ==
PROVIDERS: Physician Assistant; Emergency Provider Emergency Medicine; PCP Family Medicine; Visit Provider Emergency Medicine
DX: D70.9 Neutropenia, unspecified (principal); D61.818 Other pancytopenia; C49.5 Malignant neoplasm of connective and soft tissue of pelvis; N39.0 Urinary tract infection, site not specified; I10 Essential (primary) hypertension; I25.10 Atherosclerotic heart disease of native coronary artery without angina pectoris; E78.00 Pure hypercholesterolemia, unspecified; F17.210 Nicotine dependence, cigarettes, uncomplicated; Z53.29 Procedure and treatment not carried out because of patient's decision for other reasons
CPT/HCPCS: 36591; 71046; 80053; 81001; 83605; 84145; 85025; 85610; 87040; 87086; 87088; 99283; A4216

== ENCOUNTER → 2025-06-08 | Outpatient (CLI) | payer BC, SELFPAY ==
--- NOTE | 2025-06-08 10:51 | US_ITS ---
PROCEDURE: ABDOMEN LIMITED 06/08/2025 REASON FOR EXAM: TRANSAMINITIS; FINDINGS: Liver: Length: 16.0 cm. Echogenic suggesting steatosis. Normal hepatopetal flow in the main portal vein. No intrahepatic biliary ductal dilatation. Gallbladder: Post cholecystectomy. Common bile duct: 3.1 mm. Pancreas: Unremarkable Kidneys: The right kidney measures 10.7 x 4.6 x 5.2 cm. An 8 mm calculus is seen. US/Abdomen Limited IMPRESSION: No acute liver process or acute process otherwise. Nephrolithiasis with 8 mm calculus seen in the right kidney Reading Location: [facility]
== END | disposition home or self-care (01) ==
LOC: US 10:48
PROVIDERS: PCP Family Medicine; Referring Provider Nurse Practitioner Family; Visit Provider Nurse Practitioner Family
DX: R74.01 Elevation of levels of liver transaminase levels (principal)
CPT/HCPCS: 76705

== ENCOUNTER 2025-07-16 09:18 | Inpatient (IN) | payer BC, SELFPAY ==
[2025-07-16] VITALS (11 sets, daily range): BP systolic 95–135; BP diastolic 55–69; PULSE 89–109; RESP 16–24; TEMP 36.8–39.1; O2SAT 93–100; BMI 34.6; BMI 33.9
--- NOTE | 2025-07-16 10:00 | RAD_ITS ---
PROCEDURE: CHEST PA AND LATERAL 07/16/2025 REASON FOR EXAM: WEAKNESS TECHNIQUE: Procedure Code: RADCXR Modality: DX Procedure: CHEST PA AND LATERAL COMPARISON: May 04, 2025 FINDINGS: Hardware: Right-sided Port-A-Cath is in place. The tip is seen over the junction of the superior vena cava and right atrium. Heart: Mildly enlarged Mediastinum: Normal Lungs: Clear Bones: The bones are unremarkable. RAD/Chest PA and Lateral IMPRESSION: No acute cardiopulmonary process. Reading Location: [id number]
--- NOTE | 2025-07-16 10:00 | EKG12_ITS ---
Test Reason : Blood Pressure : */* mmHG Vent. Rate : 103 BPM Atrial Rate : 103 BPM P-R Int : 164 ms QRS Dur : 70 ms QT Int : 316 ms P-R-T Axes : 66 66 58 degrees QTcB Int : 413 ms Sinus tachycardia Low voltage QRS Borderline ECG Confirmed by Sal Soni ([id number]), book or script editor STEPHANIE THOMPSON ([id number]) on 07/17/2025 10:58:43 AM Referred By: Confirmed By: Sal Soni
--- NOTE | 2025-07-16 10:02 | ED.VIS.FALL ---
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 Persaud presents for evaluation of generalized weakness. History taken by patient as well as oncology note on 06/28/2025 in which she has a high-grade sarcoma. Patient states on she received chemotherapy. States she has had nausea and weakness. States yesterday she slept majority of the day. She went to use the restroom around 2 AM in which she was too weak to get off the toilet and slid to the ground. Did not hit her head. States she army crawled to the bedroom where she laid on the floor all night with blankets. States she threw things at the door today to get her 's attention in which he found her. She denies any fever, chills, shortness of breath, chest pain, abdominal pain, constipation, diarrhea. States she has urinary incontinence secondary to her chemotherapy. States she has a chronic cough since she was little. Review of systems: See HPI Medications: As listed on the chart Allergies: As listed on the chart PFSH: Per chart Vital signs: As listed on the chart. Reviewed. Physical exam: Gen: A&O x3, NAD Head: Normocephalic, atraumatic Eyes: No sclera icterus, conjunctiva clear, PERRL ENT: Moist mucous membranes Neck: Trachea midline, No JVD CV: Tachycardic, regular rhythm, no murmurs, no peripheral edema Resp: Lungs CTA BL, no w/r/c, + productive cough GI: Abd soft, non-distended, non-tender, no r/r/g Musc: Full ROM but generalized weakness, no deformity Skin: Warm, dry Neuro: Alert, oriented, grossly intact, sensation intact Psych: Cooperative, appropriate mood and affect [facility] Medical History Iron deficiency anemia Constipation Transaminitis 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 Hypokalemia Encounter for chemotherapy management Severe neutropenia Anemia Dark urine Oral candidiasis Encounter for education Cancer Back pain Shortness of breath on exertion Leg cramps History of stress test Primary leiomyosarcoma of pelvis Anemia due to chronic blood loss Menorrhagia Wears dentures High cholesterol Loss of consciousness Gastric reflux Smoker Cardiology follow-up encounter History of echocardiogram Cardiac murmur History of non-ST elevation myocardial infarction (NSTEMI) (06/2014) Essential (primary) hypertension Atherosclerosis of coronary artery without angina pectoris Kidney stones Home Medications ?Medication ?Instructions ?Recorded ?Last Taken ?Type aspirin 81 mg chewable tablet 81 mg PO DAILY@0800 hx of mi 06/09/19 03/28/25 History atorvastatin 80 mg tablet 80 mg PO QHS cholesterol #90 tabs 11/29/23 Unknown Rx Allergy/AdvReac Type Severity Reaction Status Date / Time No Known Allergies Allergy Verified 07/16/25 09:19 Family History Father Kidney disease Aunt Cancer paternal Other Heart disease Surgical History H/O pelvic mass (~01/26/25) History of cardiac catheterization Hx of oral surgery Hx laparoscopic cholecystectomy Hx of left cataract extraction History of hysterectomy Cataract extraction status of right eye Hx of tubal ligation History of coronary artery stent placement (03/31/21) Social History household members: spouse housing: house Smoking Status: Current every day smoker tobacco type: cigarettes Tobacco: How many years used: 39 quit status: considering quitting alcohol intake: never substance use type: does not use caffeine: Yes Type: coffee Number of servings: 1 and tea Number of servings: 2 EXAM Physical Exam Const Vital Signs: 07/16/25 09:19 07/16/25 09:21 07/16/25 09:22 Temperature 102.3 F H 100.7 F H Temperature Source Oral Oral Pulse Rate 107 H 103 H Respiratory Rate 18 24 H Respiratory Effort Normal Non-Labored Respiratory Pattern Normal Blood Pressure 104/68 102/55 L Blood Pressure Mean 80 70 Pulse Ox 100 100 Oxygen Delivery Method Room Air Room Air 07/16/25 09:23 07/16/25 10:34 07/16/25 11:00 Temperature 100.9 F H 100.7 F H Temperature Source Oral Oral Pulse Rate 109 H 108 H Respiratory Rate 20 H 16 Respiratory Effort Normal Non-Labored Respiratory Pattern Blood Pressure 102/68 97/64 Blood Pressure Mean 79 75 Pulse Ox 98 98 Oxygen Delivery Method Room Air Room Air 07/16/25 12:00 07/16/25 13:00 07/16/25 13:19 Temperature 100.3 F H 99.8 F H 99.2 F H Temperature Source Oral Oral Pulse Rate 100 99 99 Respiratory Rate 19 H 22 H 16 Respiratory Effort Respiratory Pattern Blood Pressure 117/69 115/67 98/66 Blood Pressure Mean 85 83 76 Pulse Ox 100 93 97 Oxygen Delivery Method Room Air Room Air MDM MDM MDM Narrative Medical decision making narrative: 54-year-old female with 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 Persaud presents for evaluation of generalized weakness. History taken by patient as well as oncology note on 06/28/2025 in which she has a high-grade sarcoma. On presentation, patient no acute distress however she is tachycardic and febrile. States she did not know she was febrile. Differential diagnosis includes but is not limited to pneumonia, viral illness, UTI, electrolyte abnormality, dehydration, rhabdomyolysis, cardiomyopathy. NS bolus, Tylenol ordered for symptoms. Weakness/infectious workup ordered. CBC without leukocytosis. Patient has baseline anemia of 10.6. New thrombocytopenia of 121. INR unremarkable. CMP shows dehydration without PREET. Patient has hyponatremia at 128. This is down from 07/12 at 136. No PREET. No transaminitis. Lactic acid unremarkable. Magnesium level unremarkable. Troponin 21 and 20. BNP 4642. Patient not fluid overloaded on exam. I suspect this may be cardiomyopathy from chemotherapy. UA positive for UTI. Urine culture sent. will cover broadly with Zosyn given she is immunocompromised. Chest x-ray was personally reviewed and interpreted by me, ED physician. Port in place, mild cardiomegaly, no pneumonia, pneumothorax, large effusion. Radiology in agreement. Given patient's generalized weakness with UTI and possibly new cardiomyopathy, patient will warrant admission for continued hydration and antibiotics. Patient firmly understand the plan. Patient was discussed with Dr. Cross who accepted admission. EKG: Interpreted by me/EM physician: EKG shows sinus tachycardia. No acute ischemic changes. Heart rate 103. Impression: 1. UTI 2. Hyponatremia with dehydration 3. Thrombocytopenia 4. Elevated BNP, concern for possible cardiomyopathy secondary to chemotherapy 5. History of immunocompromise secondary to chemotherapy for leiomyosarcoma Lab Data Labs: Laboratory Results - last 24 hr 07/16/25 07/16/25 07/16/25 10:30 11:05 12:20 WBC 8.8 RBC 3.28 L Hgb 10.6 L Hct 32.0 L MCV 97.6 MCH 32.3 H MCHC 33.1 RDW Std Deviation 58.3 H RDW Coeff of Estella 16.1 H Plt Count 121 L MPV 10.9 Neut % (Auto) Not Reportable Absolute Neuts (auto) 8.6 H Absolute Lymphs (auto) 0.08 L Total Counted 100 Neutrophils % (Manual) 97 H Band Neutrophils % 1 Lymphocytes % (Manual) 1 L Basophils % (Manual) 1 Diff Path Review May foll Platelet Estimate MOD RBC Morphology NORM C+C PT 17.1 H INR 1.4 APTT 38.2 H Sodium 128 L Potassium 4.1 Chloride 101 Carbon Dioxide 18.2 L Anion Gap 9 BUN 13 Creatinine 0.63 L Estim Creat Clear Calc 124.15 Est GFR (MDRD) Non-Af 105 BUN/Creatinine Ratio 20.1 H Glucose 105 H Lactic Acid 1.5 Calcium 8.1 Magnesium 1.8 Total Bilirubin 1.61 H AST 23 ALT 15 Alkaline Phosphatase 64 Total Creatine Kinase 59 Troponin T High Sens 21 H Troponin T Hi Sens 2 Hr 20 H NT pro BNP II 4642 H Total Protein 5.7 L Albumin 2.9 L Globulin 2.8 Albumin/Globulin Ratio 1.0 Urine Color Yellow Urine Clarity Cloudy Urine pH 6.0 Ur Specific [place] 1.015 Urine Protein 100 H Urine Glucose (UA) Normal Urine Ketones 15 H Urine Occult Blood 250 H Urine Nitrite Negative Urine Bilirubin 1 H Urine Urobilinogen 4 H Ur Leukocyte Esterase 500 H Urine RBC 25-50 SEEN Urine WBC 10-25 SEEN Ur Squamous Epith Cells 0-5 SEEN Urine Bacteria 2+ Urine Mucus 0 SEEN Radiography Diagnostic Testing: Clinical Impression(s) from Imaging Studies Chest X-Ray 07/16/25 10:00 IMPRESSION: No acute cardiopulmonary process. Reading Location: [facility] Discharge Plan Triage Chief Complaint: Fall Other Complaint: Weakness ED Provider: Bj Waddell Dx/Rx/DC Orders Prescriptions: No Action atorvastatin 80 mg tablet 80 mg PO QHS Qty: 90 3RF aspirin 81 MG tablet,chewable 81 mg PO DAILY@0800 Primary Care Provider: David Tse Referrals: David Tse MD [Primary Care Provider] - Print Language: Chadian
[2025-07-16] MEDS: 0.9% Normal Saline (1000mL) 1,000 ML 1000 ML IV ×2 (10:30→13:46)
[2025-07-16 10:41] LABS: Hematocrit 32.0 % (37-47); Hemoglobin 10.6 g/dL (12.0-15.0); Mean Corp Hgb Conc 33.1 g/dL (32-36); Mean Corpuscular Volume 97.6 fL (81-99); Mean Platelet Vol. 10.9 fl (6.2-12.0); POSITIVE COUNT YES; POSITIVE DIFFERENTIAL YES; POSITIVE MORPHOLOGY YES; Platelet Count 121 K/mm3 (150-450); RBC Distribution Width CV 16.1 % (11.6-14.6); RBC Distribution Width SD 58.3 fl (35.1-43.9); Red Blood Count 3.28 M/mm3 (4.2-5.4); White Blood Count 8.8 K/mm3 (4.4-11.0)
[2025-07-16 10:42] LABS: Differential Indicated MANUAL DIFF
[2025-07-16 10:49] LABS: Prothrombin Time (Protime)PT. 17.1 SECONDS (11.7-14.9)
[2025-07-16 10:50] LABS: Partial Thromboplast Time 38.2 Seconds (24.1-36.2)
--- OUTSIDE RECORDS SUMMARY | 2025-07-16 10:52 | XMS RPT_ITS | CCD ---
Author Organization [facility] Care Team Providers Care Veneer Slicing Machine Operator Name Role Phone Unavailable Primary [...] Unavailable Primary Care Provider Unavailabl e Mikel ROLL ICER MACHINE.DOCUMENT MANAGEMENT TECHNICIAN, Hilda Unavailable Elodia ROLL ICER MACHINE.DOCUMENT MANAGEMENT TECHNICIAN, India A Unavailable Darvin Grady MD Unavailable David Fink MD Primary Care Provider Dr. David Fink MD Primary Care Provider Dr. Isaiah Villanueva DO Attending Provider Dr. Isaiah Villanueva DO Emergency Provider Dr. Imani Persaud MD Attending Provider Nabil Lind Referring Provider Dr. Imani Persaud MD Referring Provider Areli ROLL ICER MACHINE - DOCUMENT MANAGEMENT TECHNICIAN, Ashok Danny Unavailable JUANA LINTON Referring Unavailable DAVID FINK Primary Care Unavailable ALEKS, DAVID J Primary Care Unavailable ALEKS, DAVID Alicea Primary Care Unavailable ALEKS, DAVID Alicea Primary Care Unavailable ALEKS, DAVID Alicea Primary Care Unavailable SUSY SMITH Referring Unavailable ALEKS, DAVID Alicea Primary Care Unavailable ISAÍAS RIBEIRO Referring Unavailable ALEKS, DAVID Alicea Primary Care Unavailable DARVIN GRADY Attending Unavailable ALEKS, DAVID Primary Care Unavailable ASHOK HERBERT Attending Unavailable ALEKS, DAVID Primary Care Unavailable DARVIN GRADY Attending Unavailable IMANI PERSAUD Referring Unavailable ALEKS, DAVID Primary Care Unavailable DARVIN GRADY Admitting Unavailable DARVIN GRADY Attending Unavailable ALEKS, DAVID Primary Care Unavailable Aleks , Dr. Hernandez Referring Provider Jose Manuel VALDEZ, Dr. Venegas Attending Provider Jose Manuel VADLEZ, Dr. Venegas Referring Provider Jose Manuel VALDEZ, Dr. Venegas Other Provider Aleks VALDEZ, David Primary Care Provider Cori WHEELER [facility], Imani S Unavailable Shannan Kearney RN Unavailable Unavailable Shayna SILK SPOTTER-C, Delmis Attending Provider Dr. Imani Persaud MD Referring Provider [facility] SILK SPOTTER-Keron Naylor Attending Provider Dr. Girish Mcgarry DO Emergency Provider Dr. Girish Mcgarry DO Attending Provider CHRISTOPHER CUNNINGHAM Attending Unavailable ALEKS, DAVID Primary Care Unavailable IMANI PERSAUD S Referring Unavailable Dr. David Fink MD Primary Care Provider Dr. David Fink MD Primary Care Provider Dr. Imani Persaud MD Attending Provider Dr. Imani Persaud MD Referring Provider Shayna SILK SPOTTER-C, Delmis Referring Provider Dr. Richi Moore MD Attending Provider Dr. David Fink MD Primary Care Provider Dr. David Fink MD Referring Provider Dr. Imani Persaud MD Attending Provider [place], David Referring Unavailable Isckarus, Mansour Attending Unavailable [facility] Primary Care Unavailable Shayna SILK SPOTTER, Delmis Attending Unavailable [place], David Referring Unavailable [place], [facility] Primary Care Unavailable Shayna SILK SPOTTER, Delmis Attending Unavailable [place], David Referring Unavailable [place], [facility] Primary Care Unavailable Roof SILK SPOTTER, Keron King Attending Unavailable [place], David Referring Unavailable [place], [facility] Primary Care Unavailable Isckarus, Imani Attending Unavailable Isckarus, Mansour Referring Unavailable [place], [facility] Primary Care Unavailable Isckarus, Jenniferour Attending Unavailable [facility] Primary Care Unavailable Isckarus, Mansour Referring Unavailable Girish Mcgarry Attending Unavailable [facility] Primary Care Unavailable CalabrettaTheo Attending Unavailable [facility] Primary Care Unavailable [place], David Referring Unavailable Calabretta, Theo Referring Unavailable Calabretta, Theo Attending Unavailable CaseabrettaTheo Consulting Unavailable [facility] Primary Care Unavailable [place], David Referring Unavailable Isckarus, Jenniferour Attending Unavailable [facility] Primary Care Unavailable [place], David Referring Unavailable Isckarus, Mansour Attending Unavailable [facility] Primary Care Unavailable Isckarus, Imani Attending Unavailable AslaniNabil fierro Referring Unavailable [facility] Primary Care Unavailable Shayna SILK SPOTTER, Delmis Attending Unavailable [facility] Primary Care Unavailable [place], David Referring Unavailable Isckarus, Mansour Attending Unavailable [place], [facility] Primary Care Unavailable [place], David Referring Unavailable Isaiah Villanueva Attending Unavailable [facility] Primary Care Unavailable Isckarus, Mansour Attending Unavailable [facility] Primary Care Unavailable Isckarus, Mansour Referring Unavailable Shayna SILK SPOTTER, Delmis Referring Unavailable Shayna SILK SPOTTER, Delmis Attending Unavailable [facility] Primary Care Unavailable Isckarus, Mansour Attending Unavailable [facility] Primary Care Unavailable Isckarus, Mansour Referring Unavailable Isckarus, Mansour Attending Unavailable [facility] Primary Care Unavailable [place], David Referring Unavailable Girish Mcgarry Attending Unavailable [place], [facility] Primary Care Unavailable CalabrettaTheo Referring Unavailable CalabrettaTheo Attending Unavailable [facility] Primary Care Unavailable Shayna SILK SPOTTER, Delmis Attending Unavailable [facility] Primary Care Unavailable [place], David Referring Unavailable Delmis Corral NP Attending Unavailable [place], David Primary Care Unavailable [facility] Referring Unavailable Richi Moore Attending Unavailable [place], David Primary Care Unavailable [place], David Referring Unavailable Imani Persaud Attending Unavailable [place], David Primary Care Unavailable [place], David Referring Unavailable Shayna SILK SPOTTER, Delmis Attending Unavailable [place], David Primary Care Unavailable [place], David Referring Unavailable Medications Current Medications Medication Drug Class(es) [...] not administer if patient has taken tylenol [id number] 200 actuat albuterol 0.09 mg/actuat metered dose [...] tablet Active 80 mg PO AT BEDTIME 90 November 29, 2023 3:11pm cholesterol Start: 03-31-2021 End: 02-27-2024 take 1 tablet by mouth at bedtime Atorvastatin 40 mg tablet Discontinued 40 mg PO AT BEDTIME 90 July 11, 2021 10:32am May 28, 2022 [...] 12/29/2024 Active dexamethasone 4 mg oral tablet (14 sources) Corticosteroid Start: 04-05-20 take 2 tablets by mouth twice daily Dexamethasone 4 mg tablet Active 8 mg PO .COMPLEX 72 0 April 05, 2025 12:00am 8 mg orally; twice daily ONLY the day before, the day of and the day after chemotherapy Diclofenac (6 sources) Nonsteroidal Anti-inflammatory Drug Start: 05-31-20 Diclofenac Sodium (Arthritis Pain (Diclofenac)) 1 % gel Active 2 g TOPICAL .COMPLEX 100 2 May 31, 2025 12:00am 2 grams topically; apply to palms of hands and bottoms of feet docusate sodium 100 mg oral capsule (7 [...] Comment on above: Take 1 capsule by mo [facility] twice daily for 7 days. famotidine 20 mg oral tablet (20 sources) Histamine-2 Receptor Antagonist Start: 01-27-20 End: 01-28-20 take 1 tablet by mouth twice daily Famotidine (Pepcid) 20 mg tablet Active 20 mg PO TWICE A DAY November 29, 2023 1:00am Comment on above: [facility] 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 With iron Active Multivitamins ch ew Take by mouth. With iron 0 Active Comment on above: Take by mouth. With iron nystatin [id number] unt/ml topical cream (5 sources) Polyene Antifungal Start: 02-14-2025 End: 02-14-2026 nystatin [id number] UNIT/GM Cream Apply topically Twice daily. 02/14/2025 02/14/2026 Active Start: 02-14-2025 End: 02-14-2026 nystatin (Mycostatin) cream Apply topically 2 times daily. 30 g 3 02/14/2025 02/14/2026 Active Nystatin 100,000 unit/mL suspension (10 sources) Start: 04-30-2025 take 1 mL by mouth every six hours Nystatin 100,000 unit/mL suspension Active 5 mL PO EVERY 6 HOURS 473 1 April 30, 2025 12:00am Candidiasis of mouth Candidal stomatitis swish and swallow Start: 04-30-2025 take 1 mL by mouth e very six hours Nystatin 100,000 unit/mL suspension Active 5 mL PO EVERY 6 HOURS 473 April 30, 2025 12:00am swish and swallow ondansetron 8 mg disintegrating oral tablet (20 sources) Serotonin-3 Receptor Antagonist Start: 04-04-2025 take 1 tablet by mouth every eight hours as needed for nausea and vomiting Ondansetron 8 mg tablet,disintegrating Active 8 mg PO Q8H as needed for nausea and vomiting 30 April 04, 2025 12:00am 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 Start: 01-09-2025 take 1 tablet by joe [...] 8 HOURS NEEDED as needed for Nausea 10 0 January 08, 2025 1:00am March 26, 2025 1:35pm oxyCODONE hydrochloride 5 mg oral tablet (20 sources) Opioid Agonist Start: 01-26-2025 End: 01-31-2025 [...] HOURS NEEDED as needed for severe pain 20 5 0 May 29, 2022 December 08, 2022 4:19pm Menorrhagia Postoperative pain Excessive and frequent menstruation with regular cycle Other acute postprocedural pain polyethylene glycol 3350 203609 mg / potassium chloride 2980 mg / sodium bicarbonate 6720 mg / sodium chloride 5840 mg / sodium sulfate 08510 mg powder for oral solution (1 source) Osmotic Laxative Start: 10-13-2022 End: 10-13-2022 peg 3350-electrolytes (COLYTE) 240-22.72-6.72 -5.84 gram solution Take 4,000 mL by mouth one time only for 1 dose. 1 Each 0 10/13/2022 10/13/2022 Active Comment on above: Take 4,000 mL by joe one time only for 1 dose. microencapsulated potassium chloride 20 meq extended release oral tablet (6 sources) Start: 05-31-2025 take 1 tablet by mouth once daily Potassium Chloride 20 mEq tablet,ER particles/crystals Active 20 meq PO DAILY 3 0 May 31, 2025 12:00am Hypokalemia Hypokalemia predniSONE 10 mg oral tablet (8 sources) [...] Start: 02-16-2023 take 2 tablets by mo [facility] once daily predniSONE (DELTASONE) 20 mg tablet [...] with food. Take 2 tablets by mo [facility] once daily. prochlorperazine 10 mg oral tablet (15 sources) Phenothiazine Start: 2024 take 1 tablet by mouth every six hours as needed for nausea and vomiting Prochlorperazine Maleate 10 mg tablet Active 10 mg PO EVERY 6 HOURS as needed for nausea and vomiting 30 2 April 04, 2025 12:00am Chemotherapy-induced nausea and vomiting Nausea with vomiting, unspecified Adverse effect of antineoplastic and immunosuppressive drugs, initial encounter sertraline 50 mg oral tablet (20 sources) Serotonin Reuptake Inhibitor Start: 2022 End: 2024 take 1 tablet by mouth at bedtime Sertraline (Zoloft) 50 mg tablet Active 50 mg PO AT BEDTIME November 29, 2023 1:00am Start: 01-26-2023 take 0.5 tablet by [facility] once daily, then take 1 tablet by [...] once a day Take 1 tablet by [facility] once daily. simethicone 80 mg chewable tablet [...] / oxyCODONE hydrochloride 5 mg oral tablet (19 sources) Opioid Agonist Start: 01-08-2025 End: 03-26-2025 Oxycodone-Acetamin ophen (Percocet) 5-325 mg tablet Discontinued 1 {tbl} PO Q8H as needed for pain 10 3 January 08, 2025 March 26, 2025 1:35pm Pelvic mass Intra-abdominal and pelvic swelling, mass and lump, unspecified site aspirin 81 mg delayed release oral tablet (20 sources) Platelet Aggregation Inhibitor, Nonsteroidal Anti-inflammatory Drug Start: 01-27-2025 End: 01-27-2025 Start: 06-09-2019 take 1 tablet by joe th once daily Aspirin 81 MG tablet,chewable Active 81 mg PO DAILY@0800 June 09, 2019 12:00am hx of mi Comment on above: Take 81 mg by [...] Indication (Select all that apply): Surgical Prophylaxis cefpodoxime 200 mg oral tablet (11 sources) Cephalosporin Antibacterial Start: 2024 End: 2024 take 1 tablet by mouth twice daily at mealtime Cefpodoxime 200 mg tablet Discontinued 200 mg PO TWICE A DAY April 28, 2025 12:00am May 17, 2025 9:45am must administer with a meal/food clopidogrel 75 mg oral tablet (20 sources) [id number] Platelet Inhibitor Start: 2020 End: 2024 take 1 tablet by mouth once daily Clopidogrel (Plavix) 75 mg tablet Discontinued 75 mg PO DAILY 90 3 June 15, 2023 8:59pm March 22, 2025 5:42pm hx of mi Comment on above: Take 75 mg by [...] mg tablet Discontinued 25 mg PO DAILY 90 June 15, 2023 9:00pm March 26, 2025 1:35pm bp Comment on above: Take 25 mg by mouth once daily. metoprolol tartrate 25 mg oral tablet (20 sources) beta-Adrenergic Eric Start: 2020 End: 2024 take 1 tablet by mouth twice daily Metoprolol Tartrate 25 mg tablet Discontinued 25 mg PO TWICE A DAY 180 February 24, 2023 4:38pm March 26, 2025 1:35pm bp Comment on above: Take 25 mg by [...] 28, 2022 12:00am May 29, 2022 9:57am anemia Start: 05-28-2022 End: 05-29-2022 take 1 mg [...] disintegrating tablet 4 mg polyethylene glycol 3350 62353 mg powder for oral solution (2 sources) [...] mg / trimethoprim 160 mg oral tablet (19 sources) Dihydrofolate Reductase Inhibitor Antibacterial, Sulfonamide Antimicrobial Start: 01-08-2025 End: 03-26-2025 Sulfamethoxazole-Trimethopri m (Bactrim Ds) 800-160 mg tablet Discontinued 1 {tbl} PO TWICE A DAY 20 10 0 January 08, 2025 1:00am March 26, 2025 [...] Discontinued 90 mg PO TWICE A DAY 180 0 April 01, 2021 12:00am May 02, 2021 [...] 23 days. Take 1 tablet by joe twice daily. After starter pack. Problems Active Problems Problem Classification Problem Date Documented Da te Episodic/Chronic Acute bronchitis (1 source) Viral bronchitis; Translations: [Acute bronchitis due to other specified organisms] 03-23-2024 Episodic Adjustment disorders (2 sources) Adjustment disorder with anxious mood; Translations: [Adjustment disorder with anxiety] Chronic Allergic reactions (15 sources) Acral erythema due to cytotoxic therapy; Translations: [Localized skin eruption due to drugs and medicaments taken internally] 05-31-2025 Episodic Benign neoplasm of uterus (7 sources) Uterine leiomyoma; Translations: [Leiomyoma of uterus, unspecified] Episodic Cancer of bone and connective tissue (20 [...] loss (chronic)] Chronic Deficiency and other anemia (9 sources) Pancytopenia; Translations: [Other pancytopenia] 05-04-2025 Chronic Deficiency and other anemia (20 sources) Microcytic hypochromic anemia; Translations: [Iron deficiency anemia, unspecified] 06-10-2019 Episodic Deficiency and other anemia (20 sources) Anemia; Translations: [Anemia, unspecified] 05-03-2025 Episodic Deficiency and other anemia (8 sources) Iron deficiency anemia; Translations: [Iron deficiency anemia, unspecified] Episodic Deficiency and other anemia (1 source) Anemia, unspecified; Translations: [Anemia, unspecified] Onset: 5 Episodic Deficiency and other anemia (8 sources) Deficiency and other anemia Diseases of white blood cells (20 sources) Febrile neutropenia; Translations: [Neutropenia, unspecified] Onset: 5 05-04-2025 Chronic Disorders of lipid metabolism (20 sources) Hyperlipidemia; Translations: [Hyperlipidemia, unspecified] Onset: 2 Resolved: Chronic Comment on above: ON MED Esophageal disorders (2 sources) Gastroesophageal reflux disease without esophagitis; Translations: [Gastro-esophageal reflux disease without esophagitis] Chronic Essential hypertension (20 sources) Essential hypertension; Translations: [Essential (primary) hypertension] Onset: 5 05-21-2022 Chronic Comment on above: controlled on meds LAST ON MEDS 01/2025 Fever of unknown origin (12 sources) Fever; Translations: [Fever, unspecified] Onset: 5 04-28-2025 Episodic Fluid and electrolyte disorders (12 sources) Hypokalemia; Translations: [Hypokalemia] Onset: 5 05-31-2025 Episodic Gastritis and duodenitis (20 sources) Gastritis; Translations: [Gastritis, unspecified, without bleeding] 06-10-2019 Episodic Gastrointestinal hemorrhage (1 source) Hematochezia; Translations: [Melena] Episodic Genitourinary symptoms and ill-defined conditions (20 sources) Scalding pain on urination ; Translations: [Dysuria] Onset: 5 12-24-2024 Episodic Heart valve disorders (20 sources) Heart murmur; Translations: [Cardiac murmur, unspecified] Onset: 2 Resolved: 5 12-04-2022 Episodic Immunity disorders (11 sources) Patient immunocompromised; Translations: [Immunodeficiency, unspecified] 04-28-2025 Chronic Maintenance chemotherapy; radiotherapy (20 sources) Patient encounter status; Translations: [Encounter for antineoplastic chemotherapy] Onset: 5 05-10-2025 Chronic Menstrual disorders (20 sources) Menometrorrhagia; Translations: [Excessive and frequent menstruation with irregular cycle] Onset: 3 Chronic Mycoses (11 sources) Candidiasis of skin; Translations: [Candidiasis of skin and nail] 02-14-2025 Episodic Nonspecific chest pain (20 sources) Chest pain; Translations: [Chest pain, unspecified] 04-09-2021 Episodic Other aftercare (2 sources) Surgical follow-up; Translations: [Encounter for follow-up examination after completed treatment for conditions other than malignant neoplasm] Episodic Other connective tissue disease (2 sources) [...] unspecified site] Onset: 5 01-26-2025 Episodic Other gastrointestinal disorders (8 sources) Constipation; Translations: [Constipation, unspecified] 06-07-2025 Episodic Other hematologic conditions (20 sources) History of anemia; Translations: [Personal history of diseases of the blood and blood-forming organs and certain disorders involving the immune mechanism] Onset: 3 11-30-2022 Episodic Other liver diseases (9 sources) Enzyme level - finding; Translations: [Elevated transaminase measurement] 06-07-2025 Episodic Other lower respiratory disease (7 sources) Cough; Translations: [Cough] Episodic Other nervous system disorders (20 sources) Postoperative pain ; Translations: [Other acute [...] Translations: [Tobacco use] Episodic Residual codes; unclassified (20 sources) Tobacco user; Translations: [Tobacco use] 04-18-2025 Episodic Residual codes; unclassified (1 source) Tobacco use; Translations: [Tobacco use] Onset: 5 Episodic Secondary malignancies (1 source) Secondary malignant neoplasm of peritoneum; 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] 04-03-2025 Chronic Substance-related disorders (20 sources) Nicotine dependence; Translations: [Nicotine dependence, unspecified, uncomplicated] 05-02-2021 Chronic Unclassified (1 source) Acute cough; Translations: [Acute cough] Onset: 4 Unclassified (2 sources) Post-op Visit; Translations: [Post-op Visit] Onset: 5 Unclassified (20 sources) Primary leiomyosarcoma of pelvis; 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 - 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] Unclassified (18 sources) C49.5 - 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,N20.0 - Calculus of kidney Unclassified (1 source) No additional problems on file Unclassified (17 sources) Severe neutropenia; Translations: [D70.9 - Neutropenia, unspecified] Unclassified (2 sources) New Patient; Translations: [New Patient] Onset: 5 Unclassified (1 source) Elevation of levels of liver transaminase levels; Translations: [Elevation of levels of liver transaminase levels] Onset: 5 Urinary tract infections (20 sources) Pyelonephritis; Translations: [Tubulo-interstitial nephritis, not specified as acute or chronic] 01-16-2025 Episodic Viral infection (1 source) Disease caused by 2019-nCoV; Translations: [COVID-19] Episodic Past or Other Problems Problem Classification Problem Date Documented Da te Episodic/Chronic Administrative/social admission (1 source) Counseling, unspecified; Translations: [Counseling, unspecified] Onset: 5 Episodic Calculus of urinary tract (20 sources) Kidney stone; Translations: [Calculus of kidney] Onset: 5 03-28-2025 Episodic Comment on above: NO SURGERY Diabetes mellitus without complication (20 sources) Hyperglycemia; Translations: [Hyperglycemia, unspecified] Onset: 2 Resolved: 5 Episodic E Codes: Adverse effects of medical drugs (1 source) Adverse effect of antineoplastic and immunosuppressive drugs, initial encounter; Translations: [Adverse effect of antineoplastic and immunosuppressive drugs, initial encounter] Onset: 5 Episodic Mood disorders (1 source) Mood disorders Onset: 5 03-21-2025 Nausea and vomiting (1 source) Nausea with vomiting, unspecified; Translations: [Nausea with vomiting, unspecified] Onset: 5 Episodic Other aftercare (1 source) Encounter for adjustment and management of vascular access device; Translations: [Encounter for adjustment and management of vascular access device] Onset: 5 Episodic Other female genital disorders (1 source) Unspecified condition associated with female genital organs and menstrual cycle; Translations: [Unspecified condition associated with female genital organs and menstrual cycle] Onset: 5 Episodic Other gastrointestinal disorders (2 sources) Intra-abdominal and pelvic swelling, mass and lump, unspecified site; Translations: [Intra-abdominal and pelvic swelling, mass and lump, unspecified site] Onset: 5 Episodic Results Test Name Value Interpretation Reference Range Facility Absolute lymphocyte countOrd ered By: Imani Persaud on 07-12-2025 Lymphocytes Auto (Unsp spec) [#/Vol] 0.96 10*3/uL 0.83-4.51 [facility] Absolute neutrophil countOrd ered By: Imani Persaud on 07-12-2025 Neutrophils (Bld) [#/Vol] 2.4 10*3/uL 2.0-7.7 [facility] Anion gap in Serum or Plasma Ordered By: Imani Persaud on 07-12-2025 Anion gap [Moles/Vol] 10 mmol/L 5-15 [facility] Automated lymphocyte count a s percentage of total leukocytesOrdered By: Imani Persaud on 07-12-2025 Lymphocytes/100 WBC Auto (Unsp spec) 23.2 % 19-41 [facility] BUN/creatinine ratioOrdered By: Imani Persaud on 07-12-2025 Urea nitrogen/Creatinine [Mass ratio] 27.5 mg/mg High 10-20 [facility] Basophil percentageOrdered B y: Imani Persaud on 07-12-2025 Basophils/100 WBC (Bld) 2.4 % High 0-1 [facility] Bilirubin, totalOrdered By: Imani Persaud on 07-12-2025 Bilirubin [Mass/Vol] 0.34 mg/dL 0.00-1.30 [facility] [place] CBC W/Diff, Automatedon 06-16 Anisocytosis Ql (Bld) 1+ Normal [facility] Comment on above: Performed By: #### L 501.5200, L500.4050, L100.0100 ####[facility] [id number] [place], [address] PLT EST ADEQUATE Normal ADEQ [facility] Comment on above: Performed By: #### L 501.5200, [id number], L100.0100 ####[facility] [id number] [place], [address] Carbon dioxide, total [Moles /volume] in Central venous bloodOrdered By: Imani Persaud on 07-12-2025 CO2 [Moles/Vol] 19.6 mmol/L Low 21.0-32.0 [facility] Chloride assayOrdered By: Jonatan Persaud on 07-12-2025 Chloride [Moles/Vol] 106 mmol/L 98-108 [facility] [place] Comprehensive Metabolic Prof ilon 07-12-2025 Albumin [Mass/Vol] 3.3 g/dL Low 3.5-5.0 [facility] Comment on above: Performed By: #### L [id number], [id number], L100.0100 ####[facility] [id number] [place], [address] Albumin/Globulin [Mass ratio] 1.2 {ratio} Normal 0.9-2.4 [facility] Comment on above: Performed By: #### L [id number], [id number], L100.0100 ####[facility] [id number] [place], [address] ALK PHOS 83 U/L Normal 35-104 [facility] Comment on above: Performed By: #### L [id number], [id number], L100.0100 ####[facility] [id number] [place], [address] ALT [Catalytic activity/Vol] 15 U/L Normal <=34 [facility] Comment on above: Performed By: #### L 501.5200, L500.4050, L100.0100 ####[facility] [address] [place], [address] AST [Catalytic activity/Vol] 24 U/L Normal <=31 [facility] Comment on above: Performed By: #### L 501.5200, L500.4050, L100.0100 ####[facility] [address] [place], [address] Bilirubin [Mass/Vol] 0.34 mg/dL Normal 0.00-1.30 [facility] [place] Comment on above: Performed By: #### L 501.5200, L500.4050, L100.0100 ####[facility] [address] [place], [address] BUN/CRE 27.5 RATIO High 10-20 [facility] Comment on above: Performed By: #### L 501.5200, L500.4050, L100.0100 ####[facility] [address] [place], [address] Calcium [Mass/Vol] 8.6 mg/dL Normal 7.6-11.0 [facility] Comment on above: Performed By: #### L 501.5200, L500.4050, L100.0100 ####[facility] [address] [place], [address] Chloride [Moles/Vol] 106 mmol/L Normal 98-108 [facility] [place] Comment on above: Performed By: #### L 501.5200, L500.4050, L100.0100 ####[facility] [address] [place], [address] CO2 [Moles/Vol] 19.6 mmol/L Low 21.0-32.0 [facility] Comment on above: Performed By: #### L 501.5200, L500.4050, L100.0100 ####[facility] [address] [place], [address] Creatinine [Mass/Vol] 0.54 mg/dL Low 0.70-1.20 [facility] Comment on above: Performed By: #### L 501.5200, L500.4050, L100.0100 ####[facility] [address] [place], [address] ECRCL 142.62 ml/min Normal 50-250 [facility] Comment on above: Performed By: #### L 501.5200, L500.4050, L100.0100 ####[facility] [address] [place], [address] GAP 10 Normal 5-15 [facility] Comment on above: Performed By: #### L 501.5200, L500.4050, L100.0100 ####[facility] [address] [place], [address] GFR/1.73 sq M.predicted among non-blacks MDRD (S/P/Bld) [Vol rate/Area] 109 mL/min/{1.73_m2} Normal >60 [facility] Comment on above: Result Comment: mL/m in/1.73m2 CKD-EPI Creatinine Equation (2020) Performed By: #### L 501.5200, L500.4050, L100.0100 ####[facility] [address] [place], [address] Globulin (S) [Mass/Vol] 2.8 g/dL Normal 2.2-4.2 [facility] Comment on above: Performed By: #### L 501.5200, L500.4050, L100.0100 ####[facility] [address] [place], [address] Glucose [Mass/Vol] 114 mg/dL High 70-99 [facility] Comment on above: Performed By: #### L 501.5200, L500.4050, L100.0100 ####[facility] [address] [place], [address] Potassium [Moles/Vol] 4.2 mmol/L Normal 3.3-5.1 [facility] Comment on above: Performed By: #### L 501.5200, L500.4050, L100.0100 ####[facility] [address] [place], [address] Sodium [Moles/Vol] 136 mmol/L Normal 133-145 [facility] Comment on above: Performed By: #### L 501.5200, L500.4050, L100.0100 ####[facility] [address] [place], [address] T PROT 6.1 g/dL Normal 5.9-8.4 [facility] Comment on above: Performed By: #### L 501.5200, L500.4050, L100.0100 ####[facility] [address] [place], [address] Urea nitrogen [Mass/Vol] 15 mg/dL Normal 4-19 [facility] Comment on above: Performed By: #### L 501.5200, L500.4050, L100.0100 ####[facility] [address] [place], [address] Eosinophil percentageOrdered By: Imani Persaud on 07-12-2025 Eosinophils/100 WBC (Bld) 9.4 % High 0-5 [facility] Erythrocyte distribution wid th ratioOrdered By: [facility] Persaud on 07-12-2025 Erythrocyte distribution width (RBC) [Ratio] 17.5 % High 11.6-14.6 [facility] Erythrocyte distribution wid th standard deviationOrdered By: [facility] Persaud on 07-12-2025 Erythrocyte distribution width (RBC) [Ratio] 65.5 fl High 35.1-43.9 [facility] Glomerular filtration rate ( GFR) estimation/1.73 sq m using serum, plasma, or whole bOrdered By: Imani Persaud on 07-12-2025 GFR/1.73 sq M.predicted among non-blacks MDRD (S/P/Bld) [Vol rate/Area] 109 mL/min/{1.73_m2} >60 [facility] Comment on above: mL/min/1.73m2 CKD-EP I Creatinine Equation (2020) Hematocrit Auto (Bld) [Volum e fraction]Ordered By: Imani Persaud on 07-12-2025 Hematocrit (Bld) [Volume fraction] 36.5 % Low 37-47 [facility] Hemoglobin measurementOrdere d By: Imani Persaud on 07-12-2025 Hemoglobin (Bld) [Mass/Vol] 11.6 g/dL Low 12.0-15.0 [facility] Immature granulocytes/100 WB C Auto (Bld)Ordered By: Imani Persaud on 07-12-2025 Immature granulocytes/100 WBC (Bld) 0.500 % 0.0-0.9 [facility] Comment on above: IG% - Immature Granu locytes (promyelocytes, myelocytes and metamyelocytes) > 1% indicates that a LEFT SHIFT is Present. Laboratory - Chemistry and C hemistry - challengeOrdered By: Imani Persaud on 07-12-2025 AST [Catalytic activity/Vol] 24 U/L <32 [facility] Laboratory - Hematology and Cell countsOrdered By: Imani Persaud on 07-12-2025 Anisocytosis Ql (Bld) 1+ [facility] MCV (mean corpuscular volume ) determinationOrdered By: [facility] Persaud on 07-12-2025 MCV (RBC) [Entitic vol] 100.0 fL High 81-99 [facility] Magnesiumon 07-12-2025 Magnesium [Mass/Vol] 2.1 mg/dL Normal 1.5-2.2 [facility] Comment on above: Performed By: #### L 501.5200, L500.4050, L100.0100 ####[facility] [address] [place], [address] Magnesium measurement (mass/ volume)Ordered By: Imani Persaud on 07-12-2025 Magnesium (Unsp spec) [Mass/Vol] 2.1 mg/dL 1.5-2.2 [facility] Mean corpuscular hemoglobin (MCH) determinationOrdered By: Imani Persaud on 07-12-2025 MCH (RBC) [Entitic mass] 31.8 pg 27.0-32.0 [facility] Mean corpuscular hemoglobin concentration (MCHC) determinationOrdered By: Imani Persaud on 07-12-2025 MCHC (RBC) [Mass/Vol] 31.8 g/dL Low 32-36 [facility] Mean platelet volume determi nationOrdered By: Imani Persaud on 07-12-2025 Platelet mean volume (Bld) [Entitic vol] 9.9 fL 6.2-12.0 [facility] Monocyte percentageOrdered B y: Imani Persaud on 08-28-2025 Monocytes/100 WBC (Bld) 7.7 % 0-10 [facility] Neutrophil percentageOrdered By: Imani Persaud on 07-12-2025 Neutrophils/100 WBC (Bld) 56.8 % 47-70 [facility] Nucleated red blood cell per centageOrdered By: Imani Persaud on 07-12-2025 Nucleated RBC/100 WBC (Bld) [Ratio] 0 % 0-5 [facility] Oncology Visit Reporton 06-16 Oncology Visit Report Normal [facility] Phosphoruson 07-12-2025 Phosphate [Mass/Vol] 3.1 mg/dL Normal 2.7-4.5 [facility] Comment on above: Performed By: #### L 501.2300 ####[facility] [address] [place], [address] Platelet countOrdered By: Jonatan Persaud on 07-12-2025 Platelets (Bld) [#/Vol] 188 10*3/uL 150-450 [facility] Platelet estimateOrdered By: Imani Persaud on 07-12-2025 Platelets LM Ql (Bld) ADEQUATE ADEQ [facility] Potassium measurement (mass/ volume)Ordered By: Imani Persaud on 07-12-2025 Potassium (Unsp spec) [Mass/Vol] 4.2 mmol/L 3.3-5.1 [facility] RBC Auto (Bld) [#/Vol]Ordere d By: Imani Persaud on 07-12-2025 RBC (Bld) [#/Vol] 3.65 10*6/uL Low 4.2-5.4 [facility] Serum creatinine measurement (mass/volume)Ordered By: Imani Persaud on 07-12-2025 Creatinine [Mass/Vol] 0.54 mg/dL Low 0.70-1.20 [facility] Serum globulin measurementOr dered By: Imani Persaud on 07-12-2025 Globulin (S) [Mass/Vol] 2.8 g/dL 2.2-4.2 [facility] Serum glucose measurement (m ass/volume)Ordered By: Imani Persaud on 07-12-2025 Glucose [Mass/Vol] 114 mg/dL High 70-99 [facility] Serum or plasma alanine del rio otransferase (ALT) measurementOrdered By: Imani Persaud on 07-12-2025 ALT [Catalytic activity/Vol] 15 U/L <35 [facility] Serum or plasma albumin cass urement (mass/volume)Ordered By: Imani Persaud on 07-12-2025 Albumin [Mass/Vol] 3.3 g/dL Low 3.5-5.0 [facility] Serum or plasma albumin/glob ulin mass ratioOrdered By: Imani Persaud on 07-12-2025 Albumin/Globulin [Mass ratio] 1.2 {ratio} 0.9-2.4 [facility] Serum or plasma alkaline tre sphatase measurementOrdered By: Imani Persaud on 07-12-2025 ALP [Catalytic activity/Vol] 83 U/L 35-104 [facility] Serum or plasma calcium cass urement (mass/volume)Ordered By: Imani Persaud on 07-12-2025 Calcium [Mass/Vol] 8.6 mg/dL 7.6-11.0 [facility] Serum or plasma urea nitroge n measurement (mass/volume)Ordered By: Imani Persaud on 07-12-2025 Urea nitrogen [Mass/Vol] 15 mg/dL 4-19 [facility] Sodium levelOrdered By: Jennifer Persaud on 07-12-2025 Sodium [Moles/Vol] 136 mmol/L 133-145 [facility] Total proteinOrdered By: Lonnie Persaud on 07-12-2025 Protein [Mass/Vol] 6.1 g/dL 5.9-8.4 [facility] White blood cell (WBC) count Ordered By: Imani Persaud on 07-12-2025 WBC (Bld) [#/Vol] 4.1 10*3/uL Low 4.4-11.0 [facility] Absolute lymphocyte countOrd ered By: Richi Moore on 06-28-2025 Lymphocytes Auto (Unsp spec) [#/Vol] 1.09 10*3/uL 0.83-4.51 [facility] Absolute neutrophil countOrd ered By: Richi Moore on 06-28-2025 Neutrophils (Bld) [#/Vol] 3.5 10*3/uL 2.0-7.7 [facility] Anion gap in Serum or Plasma Ordered By: Richi Oscar on 06-28-2025 Anion gap [Moles/Vol] 12 mmol/L - [facility] Automated lymphocyte count a s percentage of total leukocytesOrdered By: Richi Moore on 06-28-2025 Lymphocytes/100 WBC Auto (Unsp spec) 21.2 % - [facility] BUN/creatinine ratioOrdered By: Richi Oscar on 06-28-2025 Urea nitrogen/Creatinine [Mass ratio] 13.6 mg/mg 10- [facility] Basophil percentageOrdered B y: Richi Moore on 06-28-2025 Basophils/100 WBC (Bld) 0.8 % 0- [facility] Bilirubin, totalOrdered By: Richi Moore on 06-28-2025 Bilirubin [Mass/Vol] 0.86 mg/dL 0.00-1.30 [facility] Blood manual differential co mment interpretation (narrative result)Ordered By: Richi Moore on 06-28-2025 Manual differential comment Bassam (Bld) [Interp] SCANNED [facility] CBC W/Diff, Automatedon 06-15 Anisocytosis Ql (Bld) 2+ Normal [facility] Comment on above: Performed By: #### L 501.5200, L100.0100, L500.4050 ####[facility] [address] [place], [place], [id number] SMEAR COMMENT SCANNED Normal [facility] Comment on above: Performed By: #### L 501.5200, L100.0100, L500.4050 ####[facility] [address] [place], [place], [id number] Carbon dioxide, total [Moles /volume] in Central venous bloodOrdered By: Richi Moore on 06-28-2025 CO2 [Moles/Vol] 22.2 mmol/L 21.0-32.0 [facility] Chloride assayOrdered By: Yuirdia Moore on 08-14-2025 Chloride [Moles/Vol] 104 mmol/L 98-108 [facility] Comprehensive Metabolic Prof ilon 06-28-2025 Albumin [Mass/Vol] 3.4 g/dL Low 3.5-5.0 [facility] Comment on above: Performed By: #### L 501.5200, L100.0100, L500.4050 ####[facility] [address] [place], [address] Albumin/Globulin [Mass ratio] 1.2 {ratio} Normal 0.9-2.4 [facility] Comment on above: Performed By: #### L 501.5200, L100.0100, L500.4050 ####[facility] [address] [place], [address] ALK PHOS 92 U/L Normal 35-104 [facility] Comment on above: Performed By: #### L 501.5200, L100.0100, L500.4050 ####[facility] [address] [place], [address] ALT [Catalytic activity/Vol] 21 U/L Normal <=34 [facility] Comment on above: Performed By: #### L 501.5200, L100.0100, L500.4050 ####[facility] [address] [place], [address] AST [Catalytic activity/Vol] 35 U/L High <=31 [facility] Comment on above: Performed By: #### L 501.5200, L100.0100, L500.4050 ####[facility] [address] [place], [address] Bilirubin [Mass/Vol] 0.86 mg/dL Normal 0.00-1.30 [facility] Comment on above: Performed By: #### L 501.5200, L100.0100, L500.4050 ####[facility] [address] [place], [address] BUN/CRE 13.6 RATIO Normal 10-20 [facility] Comment on above: Performed By: #### L 501.5200, L100.0100, L500.4050 ####[facility] [address] [place], [address] Calcium [Mass/Vol] 8.7 mg/dL Normal 7.6-11.0 [facility] Comment on above: Performed By: #### L 501.5200, L100.0100, L500.4050 ####[facility] [address] [place], [address] Chloride [Moles/Vol] 104 mmol/L Normal 98-108 [facility] Comment on above: Performed By: #### L 501.5200, L100.0100, L500.4050 ####[facility] [address] [place], [address] CO2 [Moles/Vol] 22.2 mmol/L Normal 21.0-32.0 [facility] Comment on above: Performed By: #### L 501.5200, L100.0100, L500.4050 ####[facility] [address] [place], [address] Creatinine [Mass/Vol] 0.62 mg/dL Low 0.70-1.20 [facility] Comment on above: Performed By: #### L 501.5200, L100.0100, L500.4050 ####[facility] [address] [place], [address] ECRCL 123.96 ml/min Normal 50-250 [facility] Comment on above: Performed By: #### L 501.5200, L100.0100, L500.4050 ####[facility] [address] [place], [address] GAP 12 Normal 5-15 [facility] Comment on above: Performed By: #### L 501.5200, L100.0100, L500.4050 ####[facility] [address] [place], [address] GFR/1.73 sq M.predicted among non-blacks MDRD (S/P/Bld) [Vol rate/Area] 106 mL/min/{1.73_m2} Normal >60 [facility] Comment on above: Result Comment: mL/m in/1.73m2 CKD-EPI Creatinine Equation (2020) Performed By: #### L 501.5200, L100.0100, L500.4050 ####[facility] [address] [place], [address] Globulin (S) [Mass/Vol] 2.9 g/dL Normal 2.2-4.2 [facility] Comment on above: Performed By: #### L 501.5200, L100.0100, L500.4050 ####[facility] [address] [place], [address] Glucose [Mass/Vol] 128 mg/dL High 70-99 [facility] Comment on above: Performed By: #### L 501.5200, L100.0100, L500.4050 ####[facility] [address] [place], [address] Potassium [Moles/Vol] 3.8 mmol/L Normal 3.3-5.1 [facility] Comment on above: Performed By: #### L 501.5200, L100.0100, L500.4050 ####[facility] [address] [place], [address] Sodium [Moles/Vol] 138 mmol/L Normal 133-145 [facility] Comment on above: Performed By: #### L 501.5200, L100.0100, L500.4050 ####[facility] [address] [place], [address] T PROT 6.3 g/dL Normal 5.9-8.4 [facility] Comment on above: Performed By: #### L 501.5200, L100.0100, L500.4050 ####[facility] [address] [place], [address] Urea nitrogen [Mass/Vol] 8 mg/dL Normal 4-19 [facility] Comment on above: Performed By: #### L 501.5200, L100.0100, L500.4050 ####[facility] [address] [place], [address] Eosinophil percentageOrdered By: Richi Moore on 06-28-2025 Eosinophils/100 WBC (Bld) 1.0 % 0-5 [facility] Erythrocyte distribution wid th ratioOrdered By: Richi Moore on 06-28-2025 Erythrocyte distribution width (RBC) [Ratio] 23.6 % High 11.6-14.6 [facility] Erythrocyte distribution wid th standard deviationOrdered By: Richi Moore on 06-28-2025 Erythrocyte distribution width (RBC) [Ratio] 85.0 fl High 35.1-43.9 [facility] Glomerular filtration rate ( GFR) estimation/1.73 sq m using serum, plasma, or whole bOrdered By: Richi Moore on 06-28-2025 GFR/1.73 sq M.predicted among non-blacks MDRD (S/P/Bld) [Vol rate/Area] 106 mL/min/{1.73_m2} >60 [facility] Comment on above: mL/min/1.73m2 CKD-EP I Creatinine Equation (2020) Hematocrit Auto (Bld) [Volum e fraction]Ordered By: Richi Moore on 06-28-2025 Hematocrit (Bld) [Volume fraction] 33.8 % Low 37-47 [facility] Hemoglobin measurementOrdere d By: Richi Moore on 06-28-2025 Hemoglobin (Bld) [Mass/Vol] 10.8 g/dL Low 12.0-15.0 [facility] Immature granulocytes/100 WB C Auto (Bld)Ordered By: Richi Moore on 06-28-2025 Immature granulocytes/100 WBC (Bld) 1.600 % High 0.0-0.9 [facility] Comment on above: IG% - Immature Granu locytes (promyelocytes, myelocytes and metamyelocytes) > 1% indicates that a LEFT SHIFT is Present. Laboratory - Chemistry and C hemistry - challengeOrdered By: Richi [facility] on 06-28-2025 AST [Catalytic activity/Vol] 35 U/L High <32 [facility] Laboratory - Hematology and Cell countsOrdered By: Richi Jaramillo on 06-28-2025 Anisocytosis Ql (Bld) 2+ [facility] MCV (mean corpuscular volume ) determinationOrdered By: Richi Moore on 06-28-2025 MCV (RBC) [Entitic vol] 100.0 fL High 81-99 [facility] Magnesiumon 06-28-2025 Magnesium [Mass/Vol] 2.4 mg/dL High 1.5-2.2 [facility] Comment on above: Performed By: #### L 501.5200, L100.0100, L500.4050 ####[facility] [address] [place], [place], [id number] Magnesium measurement (mass/ volume)Ordered By: Richi Moore on 06-28-2025 Magnesium (Unsp spec) [Mass/Vol] 2.4 mg/dL High 1.5-2.2 [facility] Mean corpuscular hemoglobin (MCH) determinationOrdered By: Richi Moore on 06-28-2025 MCH (RBC) [Entitic mass] 32.0 pg 27.0-32.0 [facility] Mean corpuscular hemoglobin concentration (MCHC) determinationOrdered By: Richi [facility] on 06-28-2025 MCHC (RBC) [Mass/Vol] 32.0 g/dL 32-36 [facility] Mean platelet volume determi nationOrdered By: Richi Moore on 06-28-2025 Platelet mean volume (Bld) [Entitic vol] 10.6 fL 6.2-12.0 [facility] Monocyte percentageOrdered B y: Richi Moore on 06-28-2025 Monocytes/100 WBC (Bld) 7.6 % 0-10 [facility] Neutrophil percentageOrdered By: Richi Moore on 06-28-2025 Neutrophils/100 WBC (Bld) 67.8 % 47-70 [facility] Nucleated red blood cell per centageOrdered By: Richi Moore on 06-28-2025 Nucleated RBC/100 WBC (Bld) [Ratio] 0.6 % 0-5 [facility] Oncology Visit Reporton 08 Oncology Visit Report Normal [facility] Platelet countOrdered By: Yuridia Moore on 06-28-2025 Platelets (Bld) [#/Vol] 157 10*3/uL 150-450 [facility] Potassium measurement (mass/ volume)Ordered By: Richi Moore on 06-28-2025 Potassium (Unsp spec) [Mass/Vol] 3.8 mmol/L 3.3-5.1 [facility] RBC Auto (Bld) [#/Vol]Ordere d By: Richi Moore on 06-28-2025 RBC (Bld) [#/Vol] 3.38 10*6/uL Low 4.2-5.4 [facility] Serum creatinine measurement (mass/volume)Ordered By: Richi Moore on 06-28-2025 Creatinine [Mass/Vol] 0.62 mg/dL Low 0.70-1.20 [facility] Serum globulin measurementOr dered By: Richi Moore on 06-28-2025 Globulin (S) [Mass/Vol] 2.9 g/dL 2.2-4.2 [facility] Serum glucose measurement (m ass/volume)Ordered By: Richi Moore on 06-28-2025 Glucose [Mass/Vol] 128 mg/dL High 70-99 [facility] Serum or plasma alanine del rio otransferase (ALT) measurementOrdered By: Richi Moore on 06-28-2025 ALT [Catalytic activity/Vol] 21 U/L <35 [facility] Serum or plasma albumin cass urement (mass/volume)Ordered By: Richi Moore on 06-28-2025 Albumin [Mass/Vol] 3.4 g/dL Low 3.5-5.0 [facility] Serum or plasma albumin/glob ulin mass ratioOrdered By: Richi Moore on 06-28-2025 Albumin/Globulin [Mass ratio] 1.2 {ratio} 0.9-2.4 [facility] Serum or plasma alkaline tre sphatase measurementOrdered By: Richi Moore on 06-28-2025 ALP [Catalytic activity/Vol] 92 U/L 35-104 [facility] Serum or plasma calcium cass urement (mass/volume)Ordered By: Richi Moore on 06-28-2025 Calcium [Mass/Vol] 8.7 mg/dL 7.6-11.0 [facility] Serum or plasma urea nitroge n measurement (mass/volume)Ordered By: Richi Moore on 06-28-2025 Urea nitrogen [Mass/Vol] 8 mg/dL 4-19 [facility] Sodium levelOrdered By: Marques Moore on 06-28-2025 Sodium [Moles/Vol] 138 mmol/L 133-145 [facility] Total proteinOrdered By: Brad Moore on 06-28-2025 Protein [Mass/Vol] 6.3 g/dL 5.9-8.4 [facility] White blood cell (WBC) count Ordered By: Richi Moore on 06-28-2025 WBC (Bld) [#/Vol] 5.1 10*3/uL 4.4-11.0 [facility] Absolute lymphocyte countOrd ered By: Richi Moore on 06-14-2025 Lymphocytes Auto (Unsp spec) [#/Vol] 1.14 10*3/uL 0.83-4.51 [facility] Absolute neutrophil countOrd ered By: Richi Moore on 06-14-2025 Neutrophils (Bld) [#/Vol] 2.9 10*3/uL 2.0-7.7 [facility] Anion gap in Serum or Plasma Ordered By: Richi Moore on 06-14-2025 Anion gap [Moles/Vol] 10 mmol/L 5-15 [facility] Automated lymphocyte count a s percentage of total leukocytesOrdered By: Richi Moore on 06-14-2025 Lymphocytes/100 WBC Auto (Unsp spec) 23.5 % 19-41 [facility] BUN/creatinine ratioOrdered By: Richi Moore on 06-14-2025 Urea nitrogen/Creatinine [Mass ratio] 10.8 mg/mg 10-20 [facility] Basic Metabolic Profile (BMP )on 06-14-2025 BUN Normal 4-19 [facility] Comment on above: Result Comment: DUPL ICATE Performed By: #### L 500.2500 ####[facility] [address] [place], [address] BUN/CRE Normal 10-20 [facility] Comment on above: Result Comment: DUPL ICATE Performed By: #### L 500.2500 ####[facility] [address] [place], [address] Calcium Normal 7.6-11.0 [facility] Comment on above: Result Comment: DUPL ICATE Performed By: #### L 500.2500 ####[facility] [address] [place], [address] CL Normal 98-108 [facility] Comment on above: Result Comment: DUPL ICATE Performed By: #### L 500.2500 ####[facility] [address] [place], [address] CO2 Normal 21.0-32.0 [facility] [facility] Comment on above: Result Comment: DUPL ICATE Performed By: #### L 500.2500 ####[facility] [address] [place], [address] CREAT,SERUM Normal 0.70-1.20 [facility] Comment on above: Result Comment: DUPL ICATE Performed By: #### L 500.2500 ####[facility] [address] [place], [address] eGFR Normal >60 [facility] Comment on above: Result Comment: DUPL ICATE Performed By: #### L 500.2500 ####[facility] [address] [place], [address] GAP Normal 5-15 [facility] Comment on above: Result Comment: DUPL ICATE Performed By: #### L 500.2500 ####[facility] [address] [place], [address] GLU Normal 70-99 [facility] Comment on above: Result Comment: DUPL ICATE Performed By: #### L 500.2500 ####[facility] [address] [place], [address] Potassium Normal 3.3-5.1 [facility] Comment on above: Result Comment: DUPL ICATE Performed By: #### L 500.2500 ####[facility] [address] [place], [address] Basic Metabolic Profile (BMP) Normal 133-145 [facility] Comment on above: Result Comment: DUPL ICATE Performed By: #### L 500.2500 ####[facility] [address] [place], [address] Basophil percentageOrdered B y: Richi Moore on 06-14-2025 Basophils/100 WBC (Bld) 1.2 % High 0-1 [facility] Bilirubin, totalOrdered By: Richi Moore on 06-14-2025 Bilirubin [Mass/Vol] 0.60 mg/dL 0.00-1.30 [facility] [place] Blood polychromasia detectio n by light microscopyOrdered By: Richi Moore on 06-14-2025 Polychromasia LM Ql (Bld) 2+ [facility] CBC W/Diff, Automatedon 05-17 Anisocytosis Ql (Bld) 2+ Normal [facility] Comment on above: Performed By: #### L 500.4050, L100.0100, L501.5200 ####[facility] [address] [place], [address] MACROCYTOSIS 1+ Normal [facility] Comment on above: Performed By: #### L 500.4050, L100.0100, L501.5200 ####[facility] [address] [place], [address] PLT EST A Normal ADEQ [facility] Comment on above: Performed By: #### L 500.4050, L100.0100, L501.5200 ####[facility] [address] [place], [address] POLYCHROMASIA 2+ Normal [facility] Comment on above: Performed By: #### L 500.4050, L100.0100, L501.5200 ####[facility] [address] [place], [address] Carbon dioxide, total [Moles /volume] in Central venous bloodOrdered By: Richi Moore on 06-14-2025 CO2 [Moles/Vol] 21.7 mmol/L 21.0-32.0 [facility] Chloride assayOrdered By: Yuridia Moore on 06-14-2025 Chloride [Moles/Vol] 106 mmol/L 98-108 [facility] [place] Comprehensive Metabolic Prof ilon 06-14-2025 Albumin [Mass/Vol] 3.5 g/dL Normal 3.5-5.0 [facility] Comment on above: Performed By: #### L 500.4050, L100.0100, L501.5200 ####[facility] [address] [place], [address] Albumin/Globulin [Mass ratio] 1.2 {ratio} Normal 0.9-2.4 [facility] Comment on above: Performed By: #### L 500.4050, L100.0100, L501.5200 ####[facility] [address] [place], [address] ALK PHOS 110 U/L High 35-104 [facility] Comment on above: Performed By: #### L 500.4050, L100.0100, L501.5200 ####[facility] [address] [place], [address] ALT [Catalytic activity/Vol] 33 U/L Normal <=34 [facility] Comment on above: Performed By: #### L 500.4050, L100.0100, L501.5200 ####[facility] [address] [place], [address] AST [Catalytic activity/Vol] 25 U/L Normal <=31 [facility] Comment on above: Performed By: #### L 500.4050, L100.0100, L501.5200 ####[facility] [address] [place], [address] Bilirubin [Mass/Vol] 0.60 mg/dL Normal 0.00-1.30 [facility] [place] Comment on above: Performed By: #### L 500.4050, L100.0100, L501.5200 ####[facility] [address] [place], [address] BUN/CRE 10.8 RATIO Normal 10-20 [facility] Comment on above: Performed By: #### L 500.4050, L100.0100, L501.5200 ####[facility] [address] [place], [address] Calcium [Mass/Vol] 8.9 mg/dL Normal 7.6-11.0 [facility] Comment on above: Performed By: #### L 500.4050, L100.0100, L501.5200 ####[facility] [address] [place], [address] Chloride [Moles/Vol] 106 mmol/L Normal 98-108 [facility] [place] Comment on above: Performed By: #### L 500.4050, L100.0100, L501.5200 ####[facility] [address] [place], [address] CO2 [Moles/Vol] 21.7 mmol/L Normal 21.0-32.0 [facility] Comment on above: Performed By: #### L 500.4050, L100.0100, L501.5200 ####[facility] [address] [place], [address] Creatinine [Mass/Vol] 0.58 mg/dL Low 0.70-1.20 [facility] Comment on above: Performed By: #### L 500.4050, L100.0100, L501.5200 ####[facility] [address] [place], [address] ECRCL 131.47 ml/min Normal 50-250 [facility] Comment on above: Performed By: #### L 500.4050, L100.0100, L501.5200 ####[facility] [address] [place], [address] GAP 10 Normal 5-15 [facility] Comment on above: Performed By: #### L 500.4050, L100.0100, L501.5200 ####[facility] [address] [place], [address] GFR/1.73 sq M.predicted among non-blacks MDRD (S/P/Bld) [Vol rate/Area] 107 mL/min/{1.73_m2} Normal >60 [facility] Comment on above: Result Comment: mL/m in/1.73m2 CKD-EPI Creatinine Equation (2020) Performed By: #### L 500.4050, L100.0100, L501.5200 ####[facility] [address] [place], [address] Globulin (S) [Mass/Vol] 2.9 g/dL Normal 2.2-4.2 [facility] Comment on above: Performed By: #### L 500.4050, L100.0100, L501.5200 ####[facility] [address] [place], [address] Glucose [Mass/Vol] 138 mg/dL High 70-99 [facility] Comment on above: Performed By: #### L 500.4050, L100.0100, L501.5200 ####[facility] [address] [place], [address] Potassium [Moles/Vol] 4.6 mmol/L Normal 3.3-5.1 [facility] Comment on above: Performed By: #### L 500.4050, L100.0100, L501.5200 ####[facility] [address] [place], [address] Sodium [Moles/Vol] 137 mmol/L Normal 133-145 [facility] Comment on above: Performed By: #### L 500.4050, L100.0100, L501.5200 ####[facility] [address] [place], [address] T PROT 6.5 g/dL Normal 5.9-8.4 [facility] Comment on above: Performed By: #### L 500.4050, L100.0100, L501.5200 ####[facility] [address] [place], [address] Urea nitrogen [Mass/Vol] 6 mg/dL Normal 4-19 [facility] Comment on above: Performed By: #### L 500.4050, L100.0100, L501.5200 ####[facility] [address] [place], [address] Eosinophil percentageOrdered By: Richi Moore on 06-14-2025 Eosinophils/100 WBC (Bld) 7.0 % High 0-5 [facility] Erythrocyte distribution wid th ratioOrdered By: Richi Moore on 06-14-2025 Erythrocyte distribution width (RBC) [Ratio] 24.6 % High 11.6-14.6 [facility] Erythrocyte distribution wid th standard deviationOrdered By: Richi Moore on 06-14-2025 Erythrocyte distribution width (RBC) [Ratio] 85.0 fl High 35.1-43.9 [facility] Glomerular filtration rate ( GFR) estimation/1.73 sq m using serum, plasma, or whole bOrdered By: Richi Moore on 06-14-2025 GFR/1.73 sq M.predicted among non-blacks MDRD (S/P/Bld) [Vol rate/Area] 107 mL/min/{1.73_m2} >60 [facility] Comment on above: mL/min/1.73m2 CKD-EP I Creatinine Equation (2020) Hematocrit Auto (Bld) [Volum e fraction]Ordered By: Richi Moore on 06-14-2025 Hematocrit (Bld) [Volume fraction] 32.5 % Low 37-47 [facility] Hemoglobin measurementOrdere d By: Richi Moore on 06-14-2025 Hemoglobin (Bld) [Mass/Vol] 10.2 g/dL Low 12.0-15.0 [facility] Immature granulocytes/100 WB C Auto (Bld)Ordered By: Rihci Moore on 06-14-2025 Immature granulocytes/100 WBC (Bld) 0.600 % 0.0-0.9 [facility] Comment on above: IG% - Immature Granu locytes (promyelocytes, myelocytes and metamyelocytes) > 1% indicates that a LEFT SHIFT is Present. Laboratory - Chemistry and C hemistry - challengeOrdered By: Richi Moore on 06-14-2025 AST [Catalytic activity/Vol] 25 U/L <32 [facility] Laboratory - Hematology and Cell countsOrdered By: Richi Moore on 06-14-2025 Anisocytosis Ql (Bld) 2+ [facility] MCV (mean corpuscular volume ) determinationOrdered By: Richi Jaramillo on 06-14-2025 MCV (RBC) [Entitic vol] 98.2 fL 81-99 [facility] Macrocytes detectionOrdered By: [facility] on 06-14-2025 Macrocytes Ql (Bld) 1+ [facility] Magnesiumon 06-14-2025 Magnesium [Mass/Vol] 2.4 mg/dL High 1.5-2.2 [facility] [place] Comment on above: Performed By: #### L 500.4050, L100.0100, L501.5200 ####[facility] [address] [place], [address] Magnesium measurement (mass/ volume)Ordered By: Richi Moore on 06-14-2025 Magnesium (Unsp spec) [Mass/Vol] 2.4 mg/dL High 1.5-2.2 [facility] Mean corpuscular hemoglobin (MCH) determinationOrdered By: Richi Moore on 06-14-2025 MCH (RBC) [Entitic mass] 30.8 pg 27.0-32.0 [facility] Mean corpuscular hemoglobin concentration (MCHC) determinationOrdered By: Richi Moore on 06-14-2025 MCHC (RBC) [Mass/Vol] 31.4 g/dL Low 32-36 [facility] Mean platelet volume determi nationOrdered By: Richi Moore on 06-14-2025 Platelet mean volume (Bld) [Entitic vol] 10.3 fL 6.2-12.0 [facility] Monocyte percentageOrdered B y: Richi Moore on 06-14-2025 Monocytes/100 WBC (Bld) 7.2 % 0-10 [facility] Neutrophil percentageOrdered By: Richi Moore on 06-14-2025 Neutrophils/100 WBC (Bld) 60.5 % 47-70 [facility] Nucleated red blood cell per centageOrdered By: Richi Moore on 06-14-2025 Nucleated RBC/100 WBC (Bld) [Ratio] 0 % 0-5 [facility] Oncology Visit Reporton 05-17 Oncology Visit Report Normal [facility] Platelet countOrdered By: Yuridia Moore on 06-14-2025 Platelets (Bld) [#/Vol] 189 10*3/uL 150-450 [facility] Platelet estimateOrdered By: Richi Moore on 06-14-2025 Platelets LM Ql (Bld) A ADEQ [facility] Potassium measurement (mass/ volume)Ordered By: Richi Moore on 06-14-2025 Potassium (Unsp spec) [Mass/Vol] 4.6 mmol/L 3.3-5.1 [facility] RBC Auto (Bld) [#/Vol]Ordere d By: Richi Moore on 06-14-2025 RBC (Bld) [#/Vol] 3.31 10*6/uL Low 4.2-5.4 [facility] Serum creatinine measurement (mass/volume)Ordered By: Richi Moore on 06-14-2025 Creatinine [Mass/Vol] 0.58 mg/dL Low 0.70-1.20 [facility] Serum globulin measurementOr dered By: Richi Moore on 06-14-2025 Globulin (S) [Mass/Vol] 2.9 g/dL 2.2-4.2 [facility] Serum glucose measurement (m ass/volume)Ordered By: Richi Moore on 06-14-2025 Glucose [Mass/Vol] 138 mg/dL High 70-99 [facility] Serum or plasma alanine del rio otransferase (ALT) measurementOrdered By: Richi Moore on 06-14-2025 ALT [Catalytic activity/Vol] 33 U/L <35 [facility] Serum or plasma albumin cass urement (mass/volume)Ordered By: Richi Moore on 06-14-2025 Albumin [Mass/Vol] 3.5 g/dL 3.5-5.0 [facility] Serum or plasma albumin/glob ulin mass ratioOrdered By: Richi Moore on 06-14-2025 Albumin/Globulin [Mass ratio] 1.2 {ratio} 0.9-2.4 [facility] Serum or plasma alkaline tre sphatase measurementOrdered By: Richi Moore on 06-14-2025 ALP [Catalytic activity/Vol] 110 U/L High 35-104 [facility] Serum or plasma calcium cass urement (mass/volume)Ordered By: Richi Moore on 06-14-2025 Calcium [Mass/Vol] 8.9 mg/dL 7.6-11.0 [facility] Serum or plasma urea nitroge n measurement (mass/volume)Ordered By: Richi Moore on 06-14-2025 Urea nitrogen [Mass/Vol] 6 mg/dL 4-19 [facility] Sodium levelOrdered By: Marques Moore on 06-14-2025 Sodium [Moles/Vol] 137 mmol/L 133-145 [facility] Total proteinOrdered By: Brad Moore on 06-14-2025 Protein [Mass/Vol] 6.5 g/dL 5.9-8.4 [facility] White blood cell (WBC) count Ordered By: Richi Moore on 06-14-2025 WBC (Bld) [#/Vol] 4.9 10*3/uL 4.4-11.0 [facility] Abdomen Limitedon 06-08-2025 Abdomen Limited Normal [facility] Absolute lymphocyte countOrd ered By: [facility] [place] Persaud on 06-07-2025 Lymphocytes Auto (Unsp spec) [#/Vol] 1.17 10*3/uL 0.83-4.51 [facility] Absolute neutrophil countOrd ered By: [facility] [place] Persaud on 06-07-2025 Neutrophils (Bld) [#/Vol] 1.8 10*3/uL Low 2.0-7.7 [facility] Anion gap in Serum or Plasma Ordered By: Imani Persaud on 06-07-2025 Anion gap [Moles/Vol] 13 mmol/L 5-15 [facility] Automated lymphocyte count a s percentage of total leukocytesOrdered By: Imani Persaud on 06-07-2025 Lymphocytes/100 WBC Auto (Unsp spec) 35.0 % 19-41 [facility] BUN/creatinine ratioOrdered By: [facility] [place] Persaud on 06-07-2025 Urea nitrogen/Creatinine [Mass ratio] 14.8 mg/mg 10-20 [facility] Basophil percentageOrdered B y: Imani Persaud on 06-07-2025 Basophils/100 WBC (Bld) 1.5 % High 0-1 [facility] Bilirubin directOrdered By: Delmis Corral on 06-07-2025 Bilirubin.direct [Mass/Vol] 0.34 mg/dL High 0.00-0.30 [facility] Bilirubin, Directon 06-07-20 25 Bilirubin.direct [Mass/Vol] 0.34 mg/dL High 0.00-0.30 [facility] Comment on above: Order Comment: ADD O N Performed By: #### L 501.9520, L501.4700, L503.0106, L503.6030 ####[facility] [address] [place], [address] Bilirubin, totalOrdered By: Imani Persaud on 06-07-2025 Bilirubin [Mass/Vol] 0.75 mg/dL 0.00-1.30 [facility] [place] CBC W/Diff, Automatedon 05-16 Absolute Lymph 1.17 X10 3/uL Normal 0.83-4.51 [facility] Comment on above: Performed By: #### L 100.0100, L501.5200, L500.4050 ####[facility] [address] [place], [address] Absolute Neut 1.8 X10 3/uL Low 2.0-7.7 [facility] Comment on above: Performed By: #### L 100.0100, L501.5200, L500.4050 ####[facility] [address] [place], [address] Basophils/100 WBC (Bld) 1.5 % High 0-1 [facility] Comment on above: Performed By: #### L 100.0100, L501.5200, L500.4050 ####[facility] [address] [place], [address] Eosinophils/100 WBC (Bld) 0.3 % Normal 0-5 [facility] Comment on above: Performed By: #### L 100.0100, L501.5200, L500.4050 ####[facility] [address] [place], [address] Erythrocyte distribution width (RBC) [Ratio] 19.9 % High 11.6-14.6 [facility] Comment on above: Performed By: #### L 100.0100, L501.5200, L500.4050 ####[facility] [address] [place], [address] Hematocrit (Bld) [Volume fraction] 24.9 % Low 37-47 [facility] Comment on above: Performed By: #### L 100.0100, L501.5200, L500.4050 ####[facility] [address] [place], [address] Hemoglobin (Bld) [Mass/Vol] 8.3 g/dL Low 12.0-15.0 [facility] Comment on above: Performed By: #### L 100.0100, L501.5200, L500.4050 ####[facility] [address] [place], [address] IG% 1.200 High 0.0-0.9 [facility] Comment on above: Result Comment: IG% - Immature Granulocytes (promyelocytes, myelocytes andmetamyelocytes) > 1% indicates that a LEFT SHIFT is Present. Performed By: #### L 100.0100, L501.5200, L500.4050 ####[facility] [address] [place], [address] Lymphocytes/100 WBC (Bld) 35.0 % Normal 19-41 [facility] Comment on above: Performed By: #### L 100.0100, L501.5200, L500.4050 ####[facility] [address] [place], [address] MCH (RBC) [Entitic mass] 29.4 pg Normal 27.0-32.0 [facility] Comment on above: Performed By: #### L 100.0100, L501.5200, L500.4050 ####[facility] [address] [place], [address] MCHC (RBC) [Mass/Vol] 33.3 g/dL Normal 32-36 [facility] Comment on above: Performed By: #### L 100.0100, L501.5200, L500.4050 ####[facility] [address] [place], [address] MCV (RBC) [Entitic vol] 88.3 fL Normal 81-99 [facility] Comment on above: Performed By: #### L 100.0100, L501.5200, L500.4050 ####[facility] [address] [place], [address] Monocytes/100 WBC (Bld) 7.5 % Normal 0-10 [facility] Comment on above: Performed By: #### L 100.0100, L501.5200, L500.4050 ####[facility] [address] [place], [address] Neutrophils/100 WBC (Bld) 54.5 % Normal 47-70 [facility] Comment on above: Performed By: #### L 100.0100, L501.5200, L500.4050 ####[facility] [address] [place], [address] Nucleated RBC (Bld) [#/Vol] 1.2 10*3/uL Normal 0-5 [facility] Comment on above: Performed By: #### L 100.0100, L501.5200, L500.4050 ####[facility] [address] [place], [address] Platelet mean volume (Bld) [Entitic vol] 10.5 fL Normal 6.2-12.0 [facility] Comment on above: Performed By: #### L 100.0100, L501.5200, L500.4050 ####[facility] [address] [place], [address] Platelets (Bld) [#/Vol] 154 10*3/uL Normal 150-450 [facility] Comment on above: Performed By: #### L 100.0100, L501.5200, L500.4050 ####[facility] [address] [place], [address] RBC (Bld) [#/Vol] 2.82 10*6/uL Low 4.2-5.4 [facility] Comment on above: Performed By: #### L 100.0100, L501.5200, L500.4050 ####[facility] [address] [place], [address] RDW SD 62.4 fl High 35.1-43.9 [facility] Comment on above: Performed By: #### L 100.0100, L501.5200, L500.4050 ####[facility] [address] [place], [address] WBC (Bld) [#/Vol] 3.3 10*3/uL Low 4.4-11.0 [facility] Comment on above: Performed By: #### L 100.0100, L501.5200, L500.4050 ####[facility] [address] [place], [address] Carbon dioxide, total [Moles /volume] in Central venous bloodOrdered By: Imani Persaud on 06-07-2025 CO2 [Moles/Vol] 18.7 mmol/L Low 21.0-32.0 [facility] Chloride assayOrdered By: Jonatan Persaud on 06-07-2025 Chloride [Moles/Vol] 104 mmol/L 98-108 [facility] [place] Comprehensive Metabolic Prof ilon 06-07-2025 Albumin [Mass/Vol] 3.3 g/dL Low 3.5-5.0 [facility] Comment on above: Performed By: #### L 100.0100, L501.5200, L500.4050 ####[facility] [address] [place], [address] Albumin/Globulin [Mass ratio] 1.1 {ratio} Normal 0.9-2.4 [facility] Comment on above: Performed By: #### L 100.0100, L501.5200, L500.4050 ####[facility] [address] [place], [address] ALK PHOS 92 U/L Normal 35-104 [facility] Comment on above: Performed By: #### L 100.0100, L501.5200, L500.4050 ####[facility] [address] [place], [address] ALT [Catalytic activity/Vol] 81 U/L High <=34 [facility] Comment on above: Performed By: #### L 100.0100, L501.5200, L500.4050 ####[facility] [address] [place], [address] AST [Catalytic activity/Vol] 91 U/L High <=31 [facility] Comment on above: Performed By: #### L 100.0100, L501.5200, L500.4050 ####[facility] [address] [place], [address] Bilirubin [Mass/Vol] 0.75 mg/dL Normal 0.00-1.30 [facility] Comment on above: Performed By: #### L 100.0100, L501.5200, L500.4050 ####[facility] [address] [place], [address] BUN/CRE 14.8 RATIO Normal 10-20 [facility] Comment on above: Performed By: #### L 100.0100, L501.5200, L500.4050 ####[facility] [address] [place], [address] Calcium [Mass/Vol] 9.0 mg/dL Normal 7.6-11.0 [facility] Comment on above: Performed By: #### L 100.0100, L501.5200, L500.4050 ####[facility] [address] [place], [address] Chloride [Moles/Vol] 104 mmol/L Normal 98-108 [facility] Comment on above: Performed By: #### L 100.0100, L501.5200, L500.4050 ####[facility] [address] [place], [address] CO2 [Moles/Vol] 18.7 mmol/L Low 21.0-32.0 [facility] Comment on above: Performed By: #### L 100.0100, L501.5200, L500.4050 ####[facility] [address] [place], [address] Creatinine [Mass/Vol] 0.59 mg/dL Low 0.70-1.20 [facility] Comment on above: Performed By: #### L 100.0100, L501.5200, L500.4050 ####[facility] [address] [place], [address] ECRCL 129.25 ml/min Normal 50-250 [facility] Comment on above: Performed By: #### L 100.0100, L501.5200, L500.4050 ####[facility] [address] [place], [address] GAP 13 Normal 5-15 [facility] Comment on above: Performed By: #### L 100.0100, L501.5200, L500.4050 ####[facility] [address] [place], [address] GFR/1.73 sq M.predicted among non-blacks MDRD (S/P/Bld) [Vol rate/Area] 107 mL/min/{1.73_m2} Normal >60 [facility] Comment on above: Result Comment: mL/m in/1.73m2 CKD-EPI Creatinine Equation (2020) Performed By: #### L 100.0100, L501.5200, L500.4050 ####[facility] [address] [place], [address] Globulin (S) [Mass/Vol] 3.1 g/dL Normal 2.2-4.2 [facility] Comment on above: Performed By: #### L 100.0100, L501.5200, L500.4050 ####[facility] [address] [place], [address] Glucose [Mass/Vol] 130 mg/dL High 70-99 [facility] Comment on above: Performed By: #### L 100.0100, L501.5200, L500.4050 ####[facility] [address] [place], [address] Potassium [Moles/Vol] 3.7 mmol/L Normal 3.3-5.1 [facility] Comment on above: Performed By: #### L 100.0100, L501.5200, L500.4050 ####[facility] [address] [place], [address] Sodium [Moles/Vol] 136 mmol/L Normal 133-145 [facility] Comment on above: Performed By: #### L 100.0100, L501.5200, L500.4050 ####[facility] [address] [place], [address] T PROT 6.5 g/dL Normal 5.9-8.4 [facility] Comment on above: Performed By: #### L 100.0100, L501.5200, L500.4050 ####[facility] [address] [place], [address] Urea nitrogen [Mass/Vol] 9 mg/dL Normal 4-19 [facility] Comment on above: Performed By: #### L 100.0100, L501.5200, L500.4050 ####[facility] [address] [place], [address] Eosinophil percentageOrdered By: Imani Persaud on 06-07-2025 Eosinophils/100 WBC (Bld) 0.3 % 0-5 [facility] Erythrocyte distribution wid th ratioOrdered By: Imani Persaud on 06-07-2025 Erythrocyte distribution width (RBC) [Ratio] 19.9 % High 11.6-14.6 [facility] Erythrocyte distribution wid th standard deviationOrdered By: Imani Persaud on 06-07-2025 Erythrocyte distribution width (RBC) [Ratio] 62.4 fl High 35.1-43.9 [facility] Ferritinon 06-07-2025 Ferritin [Mass/Vol] 590 ng/mL High 22-378 [facility] Comment on above: Performed By: #### L 506.0200, L503.6550 ####[facility] [address] [place], [address] Folate [Mass/volume] in Seru m or PlasmaOrdered By: Delmis Corral on 06-07-2025 Folate [Mass/Vol] 5.13 ng/mL 4.60-34.80 [facility] Comment on above: Hemolysis, Results w ill be affected, Requires Recollection. Folates,Serum (Folic Acid)on 06-07-2025 FOLATES,SERUM 5.13 ng/mL Normal 4.60-34.80 [facility] Comment on above: Order Comment: ADD O NN Result Comment: Hemo lysis, Results will be affected, Requires Recollection. Performed By: #### L 506.0200, L503.6550 ####[facility] [address] [place], [address] Glomerular filtration rate ( GFR) estimation/1.73 sq m using serum, plasma, or whole bOrdered By: Imani Persaud on 06-07-2025 GFR/1.73 sq M.predicted among non-blacks MDRD (S/P/Bld) [Vol rate/Area] 107 mL/min/{1.73_m2} >60 [facility] Comment on above: mL/min/1.73m2 CKD-EP I Creatinine Equation (2020) Hematocrit Auto (Bld) [Volum e fraction]Ordered By: Imani Persaud on 06-07-2025 Hematocrit (Bld) [Volume fraction] 24.9 % Low 37-47 [facility] Hemoglobin measurementOrdere d By: Imani Metzgeralma on 06-07-2025 Hemoglobin (Bld) [Mass/Vol] 8.3 g/dL Low 12.0-15.0 [facility] Immature granulocytes/100 WB C Auto (Bld)Ordered By: Imani Metzgeralma on 06-07-2025 Immature granulocytes/100 WBC (Bld) 1.200 % High 0.0-0.9 [facility] Comment on above: IG% - Immature Granu locytes (promyelocytes, myelocytes and metamyelocytes) > 1% indicates that a LEFT SHIFT is Present. Iron measurement (mass/mass) Ordered By: Delmis Corral on 06-07-2025 Iron (Unsp spec) [Mass/Mass] 49 ug/dL Low 50-170 [facility] Iron+Iron Binding Capacityon 06-07-2025 Iron [Mass/Vol] 49 ug/dL Low 50-170 [facility] Comment on above: Order Comment: ADD O N Performed By: #### L 501.9520, L501.4700, L503.0106, L503.6030 ####[facility] [address] [place], [address] IRON SATURATION 18.0 Normal 13-59 [facility] Comment on above: Order Comment: ADD O N Performed By: #### L 501.9520, L501.4700, L503.0106, L503.6030 ####[facility] [address] [place], [address] TIBC 266 ug/dL Normal 250-450 [facility] Comment on above: Order Comment: ADD O N Performed By: #### L 501.9520, L501.4700, L503.0106, L503.6030 ####[facility] [address] [place], [address] UIBC 217 ug/dL Low 228-428 [facility] Comment on above: Order Comment: ADD O N Performed By: #### L 501.9520, L501.4700, L503.0106, L503.6030 ####[facility] [address] [place], [place], [id number] Laboratory - Chemistry and C hemistry - challengeOrdered By: Imani Persaud on 06-07-2025 AST [Catalytic activity/Vol] 91 U/L High <32 [facility] MCV (mean corpuscular volume ) determinationOrdered By: mIani Persaud on 06-07-2025 MCV (RBC) [Entitic vol] 88.3 fL 81-99 [facility] Magnesiumon 06-07-2025 Magnesium [Mass/Vol] 2.2 mg/dL Normal 1.5-2.2 [facility] Comment on above: Performed By: #### L 100.0100, L501.5200, L500.4050 ####[facility] [address] [place], [place], [id number] Magnesium measurement (mass/ volume)Ordered By: Imani Persaud on 06-07-2025 Magnesium (Unsp spec) [Mass/Vol] 2.2 mg/dL 1.5-2.2 [facility] Mean corpuscular hemoglobin (MCH) determinationOrdered By: Imani Persaud on 06-07-2025 MCH (RBC) [Entitic mass] 29.4 pg 27.0-32.0 [facility] Mean corpuscular hemoglobin concentration (MCHC) determinationOrdered By: Imani Persaud on 06-07-2025 MCHC (RBC) [Mass/Vol] 33.3 g/dL 32-36 [facility] Mean platelet volume determi nationOrdered By: Imani Persaud on 06-07-2025 Platelet mean volume (Bld) [Entitic vol] 10.5 fL 6.2-12.0 [facility] Monocyte percentageOrdered B y: Imani Persaud on 06-07-2025 Monocytes/100 WBC (Bld) 7.5 % 0-10 [facility] Neutrophil percentageOrdered By: Imani Persaud on 06-07-2025 Neutrophils/100 WBC (Bld) 54.5 % 47-70 [facility] No Panel InformationOrdered By: Delmis Corral on 06-07-2025 Unsaturated Iron Binding Capacity 217 ug/dL Low 228-428 [facility] Nucleated red blood cell per centageOrdered By: Imani Persaud on 06-07-2025 Nucleated RBC/100 WBC (Bld) [Ratio] 1.2 % 0-5 [facility] Oncology Visit Reporton 07 Oncology Visit Report Normal [facility] Platelet countOrdered By: Jonatan Persaud on 06-07-2025 Platelets (Bld) [#/Vol] 154 10*3/uL 150-450 [facility] Potassium measurement (mass/ volume)Ordered By: Imani Persaud on 06-07-2025 Potassium (Unsp spec) [Mass/Vol] 3.7 mmol/L 3.3-5.1 [facility] RBC Auto (Bld) [#/Vol]Ordere d By: Imani Persaud on 06-07-2025 RBC (Bld) [#/Vol] 2.82 10*6/uL Low 4.2-5.4 [facility] Serum creatinine measurement (mass/volume)Ordered By: Imani Persaud on 06-07-2025 Creatinine [Mass/Vol] 0.59 mg/dL Low 0.70-1.20 [facility] Serum globulin measurementOr dered By: Imani Persaud on 06-07-2025 Globulin (S) [Mass/Vol] 3.1 g/dL 2.2-4.2 [facility] Serum glucose measurement (m ass/volume)Ordered By: Imani Persaud on 06-07-2025 Glucose [Mass/Vol] 130 mg/dL High 70-99 [facility] Serum or plasma alanine del rio otransferase (ALT) measurementOrdered By: Imani Persaud on 06-07-2025 ALT [Catalytic activity/Vol] 81 U/L High <35 [facility] Serum or plasma albumin cass urement (mass/volume)Ordered By: Imani Persaud on 06-07-2025 Albumin [Mass/Vol] 3.3 g/dL Low 3.5-5.0 [facility] Serum or plasma albumin/glob ulin mass ratioOrdered By: Imani Persaud on 06-07-2025 Albumin/Globulin [Mass ratio] 1.1 {ratio} 0.9-2.4 [facility] Serum or plasma alkaline tre sphatase measurementOrdered By: Imani Persaud on 06-07-2025 ALP [Catalytic activity/Vol] 92 U/L 35-104 [facility] Serum or plasma calcium cass urement (mass/volume)Ordered By: Imani Persaud on 06-07-2025 Calcium [Mass/Vol] 9.0 mg/dL 7.6-11.0 [facility] Serum or plasma ferritin roxana surement (mass/volume)Ordered By: Delmis Corral on 06-07-2025 Ferritin [Mass/Vol] 590 ng/mL High 22-378 [facility] Serum or plasma iron saturat ion measurement (mass fraction)Ordered By: Delmis Corral on 06-07-2025 Iron saturation [Mass fraction] 18.0 % 13-59 [facility] Serum or plasma urea nitroge n measurement (mass/volume)Ordered By: Imani Persaud on 06-07-2025 Urea nitrogen [Mass/Vol] 9 mg/dL 4-19 [facility] Sodium levelOrdered By: Jennifer Persaud on 06-07-2025 Sodium [Moles/Vol] 136 mmol/L 133-145 [facility] TSH DL <= 0.005 mIU/L QnOrde red By: Delmis Corral on 06-07-2025 TSH Qn 3.100 uIU/mL 0.300-4.200 [facility] Thyroid Stim Hormone (TSH)on 06-07-2025 TSH 3.100 uIU/mL Normal 0.300-4.200 [facility] Comment on above: Order Comment: ADD O N Performed By: #### L 501.9551, L501.4700, L503.0106, L503.6030 ####[facility] [address] [place], [place], [id number] Total proteinOrdered By: Lonnie Persaud on 06-07-2025 Protein [Mass/Vol] 6.5 g/dL 5.9-8.4 [facility] Vitamin B12on 06-07-2025 Cobalamin (Vitamin B12) [Mass/Vol] 1700 pg/mL High 180-914 [facility] Comment on above: Order Comment: ADD O N Performed By: #### L 501.9520, L501.4700, L503.0106, L503.6030 ####[facility] [address] [place], [address] Vitamin B12 ser/plasOrdered By: Delmis Corral on 06-07-2025 Cobalamin (Vitamin B12) [Mass/Vol] 1700 pg/mL High 180-914 [facility] White blood cell (WBC) count Ordered By: Imani Persaud on 06-07-2025 WBC (Bld) [#/Vol] 3.3 10*3/uL Low 4.4-11.0 [facility] Absolute lymphocyte countOrd ered By: Imani Persaud on 05-31-2025 Lymphocytes Auto (Unsp spec) [#/Vol] 1.15 10*3/uL 0.83-4.51 [facility] Absolute neutrophil countOrd ered By: Imani Persaud on 05-31-2025 Neutrophils (Bld) [#/Vol] 4.6 10*3/uL 2.0-7.7 [facility] Anion gap in Serum or Plasma Ordered By: Imani Persaud on 05-31-2025 Anion gap [Moles/Vol] 13 mmol/L 5-15 [facility] Automated lymphocyte count a s percentage of total leukocytesOrdered By: Imani Persaud on 05-31-2025 Lymphocytes/100 WBC Auto (Unsp spec) 17.7 % Low 19-41 [facility] BUN/creatinine ratioOrdered By: Imani Persaud on 05-31-2025 Urea nitrogen/Creatinine [Mass ratio] 9.8 mg/mg Low 10-20 [facility] Basophil percentageOrdered B y: Imani Persaud on 05-31-2025 Basophils/100 WBC (Bld) 0.6 % 0-1 [facility] Bilirubin, totalOrdered By: Imani Persaud on 05-31-2025 Bilirubin [Mass/Vol] 0.64 mg/dL 0.00-1.30 [facility] CBC W/Diff, Automatedon 05-15 Anisocytosis Ql (Bld) 1+ Normal [facility] Comment on above: Performed By: #### L 501.5200, L100.0100, L500.4050 ####[facility] [address] [place], [address] Carbon dioxide, total [Moles /volume] in Central venous bloodOrdered By: Jenniferira Persaud on 05-31-2025 CO2 [Moles/Vol] 20.0 mmol/L Low 21.0-32.0 [facility] Chloride assayOrdered By: Jonatan vishnuira Persaud on 05-31-2025 Chloride [Moles/Vol] 107 mmol/L 98-108 [facility] Comprehensive Metabolic Prof ilon 05-31-2025 Albumin [Mass/Vol] 3.4 g/dL Low 3.5-5.0 [facility] Comment on above: Performed By: #### L 501.5200, L100.0100, L500.4050 ####[facility] [address] [place], [address] Albumin/Globulin [Mass ratio] 1.1 {ratio} Normal 0.9-2.4 [facility] Comment on above: Performed By: #### L 501.5200, L100.0100, L500.4050 ####[facility] [address] [place], [address] ALK PHOS 101 U/L Normal 35-104 [facility] Comment on above: Performed By: #### L 501.5200, L100.0100, L500.4050 ####[facility] [address] [place], [address] ALT [Catalytic activity/Vol] 33 U/L Normal <=34 [facility] Comment on above: Performed By: #### L 501.5200, L100.0100, L500.4050 ####[facility] [address] [place], [address] AST [Catalytic activity/Vol] 33 U/L High <=31 [facility] Comment on above: Performed By: #### L 501.5200, L100.0100, L500.4050 ####[facility] [address] [place], [address] Bilirubin [Mass/Vol] 0.64 mg/dL Normal 0.00-1.30 [facility] Comment on above: Performed By: #### L 501.5200, L100.0100, L500.4050 ####[facility] [address] [place], [address] BUN/CRE 9.8 RATIO Low 10-20 [facility] Comment on above: Performed By: #### L 501.5200, L100.0100, L500.4050 ####[facility] [address] [place], [address] Calcium [Mass/Vol] 8.7 mg/dL Normal 7.6-11.0 [facility] Comment on above: Performed By: #### L 501.5200, L100.0100, L500.4050 ####[facility] [address] [place], [address] Chloride [Moles/Vol] 107 mmol/L Normal 98-108 [facility] Comment on above: Performed By: #### L 501.5200, L100.0100, L500.4050 ####[facility] [address] [place], [address] CO2 [Moles/Vol] 20.0 mmol/L Low 21.0-32.0 [facility] Comment on above: Performed By: #### L 501.5200, L100.0100, L500.4050 ####[facility] [address] [place], [address] Creatinine [Mass/Vol] 0.75 mg/dL Normal 0.70-1.20 [facility] Comment on above: Performed By: #### L 501.5200, L100.0100, L500.4050 ####[facility] [address] [place], [address] ECRCL 102.10 ml/min Normal 50-250 [facility] Comment on above: Performed By: #### L 501.5200, L100.0100, L500.4050 ####[facility] [address] [place], [address] GAP 13 Normal 5-15 [facility] Comment on above: Performed By: #### L 501.5200, L100.0100, L500.4050 ####[facility] [address] [place], [address] GFR/1.73 sq M.predicted among non-blacks MDRD (S/P/Bld) [Vol rate/Area] 95 mL/min/{1.73_m2} Normal >60 [facility] Comment on above: Result Comment: mL/m in/1.73m2 CKD-EPI Creatinine Equation (2020) Performed By: #### L 501.5200, L100.0100, L500.4050 ####[facility] [address] [place], [address] Globulin (S) [Mass/Vol] 3.0 g/dL Normal 2.2-4.2 [facility] Comment on above: Performed By: #### L 501.5200, L100.0100, L500.4050 ####[facility] [address] [place], [address] Glucose [Mass/Vol] 121 mg/dL High 70-99 [facility] Comment on above: Performed By: #### L 501.5200, L100.0100, L500.4050 ####[facility] [address] [place], [address] Potassium [Moles/Vol] 3.2 mmol/L Low 3.3-5.1 [facility] Comment on above: Performed By: #### L 501.5200, L100.0100, L500.4050 ####[facility] [address] [place], [address] Sodium [Moles/Vol] 140 mmol/L Normal 133-145 [facility] Comment on above: Performed By: #### L 501.5200, L100.0100, L500.4050 ####[facility] [address] [place], [address] T PROT 6.4 g/dL Normal 5.9-8.4 [facility] Comment on above: Performed By: #### L 501.5200, L100.0100, L500.4050 ####[facility] [address] [place], [address] Urea nitrogen [Mass/Vol] 7 mg/dL Normal 4-19 [facility] Comment on above: Performed By: #### L 501.5200, L100.0100, L500.4050 ####[facility] [address] [place], [address] Eosinophil percentageOrdered By: Imani Persaud on 05-31-2025 Eosinophils/100 WBC (Bld) 1.7 % 0-5 [facility] Erythrocyte distribution wid th ratioOrdered By: Imani Persaud on 05-31-2025 Erythrocyte distribution width (RBC) [Ratio] 21.6 % High 11.6-14.6 [facility] Erythrocyte distribution wid th standard deviationOrdered By: Imani Persaud on 05-31-2025 Erythrocyte distribution width (RBC) [Ratio] 48.8 fl High 35.1-43.9 [facility] Glomerular filtration rate ( GFR) estimation/1.73 sq m using serum, plasma, or whole bOrdered By: [facility] Persaud on 05-31-2025 GFR/1.73 sq M.predicted among non-blacks MDRD (S/P/Bld) [Vol rate/Area] 95 mL/min/{1.73_m2} >60 [facility] Comment on above: mL/min/1.73m2 CKD-EP I Creatinine Equation (2020) Hematocrit Auto (Bld) [Volum e fraction]Ordered By: [facility] Persaud on 05-31-2025 Hematocrit (Bld) [Volume fraction] 28.9 % Low 37-47 [facility] Hemoglobin measurementOrdere d By: [facility] Persaud on 05-31-2025 Hemoglobin (Bld) [Mass/Vol] 9.7 g/dL Low 12.0-15.0 [facility] Immature granulocytes/100 WB C Auto (Bld)Ordered By: [facility] 05-[facility]2025 Immature granulocytes/100 WBC (Bld) 2.500 % High 0.0-0.9 [facility] Comment on above: IG% - Immature Granu locytes (promyelocytes, myelocytes and metamyelocytes) > 1% indicates that a LEFT SHIFT is Present. Laboratory - Chemistry and C hemistry - challengeOrdered By: [facility] on 05-31-2025 AST [Catalytic activity/Vol] 33 U/L High <32 [facility] Laboratory - Hematology and Cell countsOrdered By: [facility] on 05-31-2025 Anisocytosis Ql (Bld) 1+ [facility] MCV (mean corpuscular volume ) determinationOrdered By: [facility] on 05-31-2025 MCV (RBC) [Entitic vol] 88.4 fL 81-99 [facility] Magnesiumon 05-31-2025 Magnesium [Mass/Vol] 2.4 mg/dL High 1.5-2.2 [facility] Comment on above: Performed By: #### L 501.5200, L100.0100, L500.4050 ####[facility] [address] [place], [place], [id number] Magnesium measurement (mass/ volume)Ordered By: Imani Persaud on 05-31-2025 Magnesium (Unsp spec) [Mass/Vol] 2.4 mg/dL High 1.5-2.2 [facility] Mean corpuscular hemoglobin (MCH) determinationOrdered By: Imani Persaud on 05-31-2025 MCH (RBC) [Entitic mass] 29.7 pg 27.0-32.0 [facility] Mean corpuscular hemoglobin concentration (MCHC) determinationOrdered By: Imani Persaud on 05-31-2025 MCHC (RBC) [Mass/Vol] 33.6 g/dL 32-36 [facility] Mean platelet volume determi nationOrdered By: Imani Persaud on 05-31-2025 Platelet mean volume (Bld) [Entitic vol] 10.2 fL 6.2-12.0 [facility] Monocyte percentageOrdered B y: Imani Persaud on 05-31-2025 Monocytes/100 WBC (Bld) 7.5 % 0-10 [facility] Neutrophil percentageOrdered By: Imani Persaud on 05-31-2025 Neutrophils/100 WBC (Bld) 70.0 % 47-70 [facility] Nucleated red blood cell per centageOrdered By: Imani Persaud on 05-31-2025 Nucleated RBC/100 WBC (Bld) [Ratio] 0.9 % 0-5 [facility] Oncology Visit Reporton 05-15 Oncology Visit Report Normal [facility] Phosphoruson 05-31-2025 Phosphate [Mass/Vol] 2.9 mg/dL Normal 2.7-4.5 [facility] Comment on above: Performed By: #### L 501.2300 ####[facility] [address] [place], [address] Platelet countOrdered By: Jonatan Persaud on 05-31-2025 Platelets (Bld) [#/Vol] 233 10*3/uL 150-450 [facility] Potassium measurement (mass/ volume)Ordered By: Imani Persaud on 05-31-2025 Potassium (Unsp spec) [Mass/Vol] 3.2 mmol/L Low 3.3-5.1 [facility] RBC Auto (Bld) [#/Vol]Ordere d By: Imani Persaud on 05-31-2025 RBC (Bld) [#/Vol] 3.27 10*6/uL Low 4.2-5.4 [facility] Serum creatinine measurement (mass/volume)Ordered By: Imani Persaud on 05-31-2025 Creatinine [Mass/Vol] 0.75 mg/dL 0.70-1.20 [facility] Serum globulin measurementOr dered By: Imani Persaud on 05-31-2025 Globulin (S) [Mass/Vol] 3.0 g/dL 2.2-4.2 [facility] Serum glucose measurement (m ass/volume)Ordered By: Imani Persaud on 05-31-2025 Glucose [Mass/Vol] 121 mg/dL High 70-99 [facility] Serum or plasma alanine del rio otransferase (ALT) measurementOrdered By: Imani Persaud on 05-31-2025 ALT [Catalytic activity/Vol] 33 U/L <35 [facility] Serum or plasma albumin cass urement (mass/volume)Ordered By: Imani Persaud on 05-31-2025 Albumin [Mass/Vol] 3.4 g/dL Low 3.5-5.0 [facility] Serum or plasma albumin/glob ulin mass ratioOrdered By: Imani Persaud on 05-31-2025 Albumin/Globulin [Mass ratio] 1.1 {ratio} 0.9-2.4 [facility] Serum or plasma alkaline tre sphatase measurementOrdered By: Imani Persaud on 05-31-2025 ALP [Catalytic activity/Vol] 101 U/L 35-104 [facility] Serum or plasma calcium cass urement (mass/volume)Ordered By: Imani Persaud on 05-31-2025 Calcium [Mass/Vol] 8.7 mg/dL 7.6-11.0 [facility] Serum or plasma urea nitroge n measurement (mass/volume)Ordered By: Imani Persaud on 05-31-2025 Urea nitrogen [Mass/Vol] 7 mg/dL 4-19 [facility] Sodium levelOrdered By: Jennifer roth Cori on 05-31-2025 Sodium [Moles/Vol] 140 mmol/L 133-145 [facility] Total proteinOrdered By: Lonnie Metzgeralma on 05-31-2025 Protein [Mass/Vol] 6.4 g/dL 5.9-8.4 [facility] White blood cell (WBC) count Ordered By: Imani Cori on 05-31-2025 WBC (Bld) [#/Vol] 6.5 10*3/uL 4.4-11.0 [facility] CBC W/Diff, Automatedon 05-15 PATH REV Reviewed Normal [facility] Comment on above: Result Comment: SEE REPORT IN PATIENT'S EMR AMENDED REPORT 05/28/25 [id number] PATH REV previously reported as: March foll Performed By: #### L 501.2300, L501.5200, L500.4050, L100.0100 ####[facility] [address] [place], [place], [address] CBC W/Diff, Automatedon PATH REV Reviewed Normal [facility] Comment on above: Result Comment: SEE REPORT IN PATIENT'S EMR AMENDED REPORT 05/23/25 [id number] PATH REV previously reported as: March foll Performed By: #### L 500.2500, L501.2300, L100.0100, L501.5200 ####[facility] [address] [place], [address] Absolute lymphocyte countOrd ered By: Imani Cori on 05-17-2025 Lymphocytes Auto (Unsp spec) [#/Vol] 0.85 10*3/uL 0.83-4.51 [facility] Absolute neutrophil countOrd ered By: Imani Cori on 05-17-2025 Neutrophils (Bld) [#/Vol] 0.9 10*3/uL Low 2.0-7.7 [facility] Anion gap in Serum or Plasma Ordered By: Jenniferira Persaud on 05-17-2025 Anion gap [Moles/Vol] 10 mmol/L 5-15 [facility] Automated lymphocyte count a s percentage of total leukocytesOrdered By: Imani Persaud on 05-17-2025 Lymphocytes/100 WBC Auto (Unsp spec) 41.7 % High 19-41 [facility] BUN/creatinine ratioOrdered By: Imani Persaud on 05-17-2025 Urea nitrogen/Creatinine [Mass ratio] 12.5 mg/mg 10-20 [facility] Basophil percentageOrdered B y: Imani Persaud on 05-17-2025 Basophils/100 WBC (Bld) 3.9 % High 0-1 [facility] Bilirubin, totalOrdered By: Imani Persaud on 05-17-2025 Bilirubin [Mass/Vol] 0.76 mg/dL 0.00-1.30 [facility] Blood manual differential co mment interpretation (narrative result)Ordered By: Imani Persaud on 05-17-2025 Manual differential comment Bassam (Bld) [Interp] SCANNED [facility] CBC W/Diff, Automatedon ATYPICAL LYMPH 1+ Normal [facility] Comment on above: Performed By: #### L 500.4050, L501.5200, L100.0100 ####[facility] [address] [place], [place], [id number] SMEAR COMMENT SCANNED Normal [facility] Comment on above: Performed By: #### L 500.4050, L501.5200, L100.0100 ####[facility] [address] [place], [place], [id number] Carbon dioxide, total [Moles /volume] in Central venous bloodOrdered By: Imani Persaud on 05-17-2025 CO2 [Moles/Vol] 20.8 mmol/L Low 21.0-32.0 [facility] Chloride assayOrdered By: Jonatan Persaud on 05-17-2025 Chloride [Moles/Vol] 105 mmol/L 98-108 [facility] [place] Comprehensive Metabolic Prof ilon 05-17-2025 Albumin [Mass/Vol] 3.4 g/dL Low 3.5-5.0 [facility] Comment on above: Performed By: #### L 500.4050, L501.5200, L100.0100 ####[facility] [address] [place], [address] Albumin/Globulin [Mass ratio] 1.0 {ratio} Normal 0.9-2.4 [facility] Comment on above: Performed By: #### L 500.4050, L501.5200, L100.0100 ####[facility] [address] [place], [address] ALK PHOS 97 U/L Normal 35-104 [facility] Comment on above: Performed By: #### L 500.4050, L501.5200, L100.0100 ####[facility] [address] [place], [address] ALT [Catalytic activity/Vol] 70 U/L High <=34 [facility] Comment on above: Performed By: #### L 500.4050, L501.5200, L100.0100 ####[facility] [address] [place], [address] AST [Catalytic activity/Vol] 47 U/L High <=31 [facility] Comment on above: Performed By: #### L 500.4050, L501.5200, L100.0100 ####[facility] [address] [place], [address] Bilirubin [Mass/Vol] 0.76 mg/dL Normal 0.00-1.30 [facility] [place] Comment on above: Performed By: #### L 500.4050, L501.5200, L100.0100 ####[facility] [address] [place], [address] BUN/CRE 12.5 RATIO Normal 10-20 [facility] Comment on above: Performed By: #### L 500.4050, L501.5200, L100.0100 ####[facility] [address] [place], [address] Calcium [Mass/Vol] 8.8 mg/dL Normal 7.6-11.0 [facility] Comment on above: Performed By: #### L 500.4050, L501.5200, L100.0100 ####[facility] [address] [place], [address] Chloride [Moles/Vol] 105 mmol/L Normal 98-108 [facility] [place] Comment on above: Performed By: #### L 500.4050, L501.5200, L100.0100 ####[facility] [address] [place], [address] CO2 [Moles/Vol] 20.8 mmol/L Low 21.0-32.0 [facility] Comment on above: Performed By: #### L 500.4050, L501.5200, L100.0100 ####[facility] [address] [place], [address] Creatinine [Mass/Vol] 0.66 mg/dL Low 0.70-1.20 [facility] Comment on above: Performed By: #### L 500.4050, L501.5200, L100.0100 ####[facility] [address] [place], [address] ECRCL 116.74 ml/min Normal 50-250 [facility] Comment on above: Performed By: #### L 500.4050, L501.5200, L100.0100 ####[facility] [address] [place], [address] GAP 10 Normal 5-15 [facility] Comment on above: Performed By: #### L 500.4050, L501.5200, L100.0100 ####[facility] [address] [place], [address] GFR/1.73 sq M.predicted among non-blacks MDRD (S/P/Bld) [Vol rate/Area] 104 mL/min/{1.73_m2} Normal >60 [facility] Comment on above: Result Comment: mL/m in/1.73m2 CKD-EPI Creatinine Equation (2020) Performed By: #### L 500.4050, L501.5200, L100.0100 ####[facility] [address] [place], [address] Globulin (S) [Mass/Vol] 3.5 g/dL Normal 2.2-4.2 [facility] Comment on above: Performed By: #### L 500.4050, L501.5200, L100.0100 ####[facility] [address] [place], [address] Glucose [Mass/Vol] 123 mg/dL High 70-99 [facility] Comment on above: Performed By: #### L 500.4050, L501.5200, L100.0100 ####[facility] [address] [place], [address] Potassium [Moles/Vol] 4.1 mmol/L Normal 3.3-5.1 [facility] Comment on above: Performed By: #### L 500.4050, L501.5200, L100.0100 ####[facility] [address] [place], [address] Sodium [Moles/Vol] 136 mmol/L Normal 133-145 [facility] Comment on above: Performed By: #### L 500.4050, L501.5200, L100.0100 ####[facility] [address] [place], [address] T PROT 6.9 g/dL Normal 5.9-8.4 [facility] Comment on above: Performed By: #### L 500.4050, L501.5200, L100.0100 ####[facility] [address] [place], [place], [id number] Urea nitrogen [Mass/Vol] 8 mg/dL Normal 4-19 [facility] Comment on above: Performed By: #### L 500.4050, L501.5200, L100.0100 ####[facility] [address] [place], [place], [id number] Eosinophil percentageOrdered By: Imani Persaud on 05-17-2025 Eosinophils/100 WBC (Bld) 1.0 % 0-5 [facility] Erythrocyte distribution wid th ratioOrdered By: [facility] Persaud on 05-17-2025 Erythrocyte distribution width (RBC) [Ratio] 14.4 % 11.6-14.6 [facility] Erythrocyte distribution wid th standard deviationOrdered By: [facility] Persaud on 05-17-2025 Erythrocyte distribution width (RBC) [Ratio] 41.2 fl 35.1-43.9 [facility] Glomerular filtration rate ( GFR) estimation/1.73 sq m using serum, plasma, or whole bOrdered By: [facility] Persaud on 05-17-2025 GFR/1.73 sq M.predicted among non-blacks MDRD (S/P/Bld) [Vol rate/Area] 104 mL/min/{1.73_m2} >60 [facility] Comment on above: mL/min/1.73m2 CKD-EP I Creatinine Equation (2020) Hematocrit Auto (Bld) [Volum e fraction]Ordered By: Imani Persaud on 05-17-2025 Hematocrit (Bld) [Volume fraction] 29.8 % Low 37-47 [facility] Hemoglobin measurementOrdere d By: Imani Persaud on 05-17-2025 Hemoglobin (Bld) [Mass/Vol] 10.4 g/dL Low 12.0-15.0 [facility] Immature granulocytes/100 WB C Auto (Bld)Ordered By: Imani Persaud on 05-17-2025 Immature granulocytes/100 WBC (Bld) 0.500 % 0.0-0.9 [facility] Comment on above: IG% - Immature Granu locytes (promyelocytes, myelocytes and metamyelocytes) > 1% indicates that a LEFT SHIFT is Present. Laboratory - Chemistry and C hemistry - challengeOrdered By: Imani Persaud on 05-17-2025 AST [Catalytic activity/Vol] 47 U/L High <32 [facility] MCV (mean corpuscular volume ) determinationOrdered By: Imani Persaud on 05-17-2025 MCV (RBC) [Entitic vol] 83.2 fL 81-99 [facility] Magnesiumon 05-17-2025 Magnesium [Mass/Vol] 2.3 mg/dL High 1.5-2.2 [facility] [place] Comment on above: Performed By: #### L 500.4050, L501.5200, L100.0100 ####[facility] [address] [place], [address] Magnesium measurement (mass/ volume)Ordered By: Imani Persaud on 05-17-2025 Magnesium (Unsp spec) [Mass/Vol] 2.3 mg/dL High 1.5-2.2 [facility] Mean corpuscular hemoglobin (MCH) determinationOrdered By: Imani Persaud on 05-17-2025 MCH (RBC) [Entitic mass] 29.1 pg 27.0-32.0 [facility] Mean corpuscular hemoglobin concentration (MCHC) determinationOrdered By: Imani Persaud on 05-17-2025 MCHC (RBC) [Mass/Vol] 34.9 g/dL 32-36 [facility] Mean platelet volume determi nationOrdered By: Imani Persaud on 05-17-2025 Platelet mean volume (Bld) [Entitic vol] 9.7 fL 6.2-12.0 [facility] Monocyte percentageOrdered B y: Imani Persaud on 05-17-2025 Monocytes/100 WBC (Bld) 8.8 % 0-10 [facility] Neutrophil percentageOrdered By: Imani Persaud on 05-17-2025 Neutrophils/100 WBC (Bld) 44.1 % Low 47-70 [facility] Nucleated red blood cell per centageOrdered By: Imani Persaud on 05-17-2025 Nucleated RBC/100 WBC (Bld) [Ratio] 1.0 % 0-5 [facility] Oncology Visit Reporton Oncology Visit Report Normal [facility] Phosphoruson 05-17-2025 Phosphate [Mass/Vol] 3.3 mg/dL Normal 2.7-4.5 [facility] [place] Comment on above: Performed By: #### L 501.2300 ####[facility] [address] [place], [address] Platelet countOrdered By: Jonatan Persaud on 05-17-2025 Platelets (Bld) [#/Vol] 210 10*3/uL 150-450 [facility] Potassium measurement (mass/ volume)Ordered By: Imani Persaud on 05-17-2025 Potassium (Unsp spec) [Mass/Vol] 4.1 mmol/L 3.3-5.1 [facility] RBC Auto (Bld) [#/Vol]Ordere d By: Imani Persaud on 05-17-2025 RBC (Bld) [#/Vol] 3.58 10*6/uL Low 4.2-5.4 [facility] Serum creatinine measurement (mass/volume)Ordered By: Imani Persaud on 05-17-2025 Creatinine [Mass/Vol] 0.66 mg/dL Low 0.70-1.20 [facility] Serum globulin measurementOr dered By: Imani Persaud on 05-17-2025 Globulin (S) [Mass/Vol] 3.5 g/dL 2.2-4.2 [facility] Serum glucose measurement (m ass/volume)Ordered By: Imani Persaud on 05-17-2025 Glucose [Mass/Vol] 123 mg/dL High 70-99 [facility] Serum or plasma alanine del rio otransferase (ALT) measurementOrdered By: Imani Persaud on 05-17-2025 ALT [Catalytic activity/Vol] 70 U/L High <35 [facility] Serum or plasma albumin cass urement (mass/volume)Ordered By: Imani Persaud on 05-17-2025 Albumin [Mass/Vol] 3.4 g/dL Low 3.5-5.0 [facility] Serum or plasma albumin/glob ulin mass ratioOrdered By: Imani Persaud on 05-17-2025 Albumin/Globulin [Mass ratio] 1.0 {ratio} 0.9-2.4 [facility] Serum or plasma alkaline tre sphatase measurementOrdered By: Imani Persaud on 05-17-2025 ALP [Catalytic activity/Vol] 97 U/L 35-104 [facility] Serum or plasma calcium cass urement (mass/volume)Ordered By: Imani Persaud on 05-17-2025 Calcium [Mass/Vol] 8.8 mg/dL 7.6-11.0 [facility] Serum or plasma urea nitroge n measurement (mass/volume)Ordered By: Imani Persaud on 05-17-2025 Urea nitrogen [Mass/Vol] 8 mg/dL 4-19 [facility] Sodium levelOrdered By: Jennifer Persaud on 05-17-2025 Sodium [Moles/Vol] 136 mmol/L 133-145 [facility] Total proteinOrdered By: Lonnie Persaud on 05-17-2025 Protein [Mass/Vol] 6.9 g/dL 5.9-8.4 [facility] White blood cell (WBC) count Ordered By: Imani Persaud on 05-17-2025 WBC (Bld) [#/Vol] 2.0 10*3/uL Low 4.4-11.0 [facility] Absolute lymphocyte countOrd ered By: Imani Persaud on 05-10-2025 Lymphocytes Auto (Unsp spec) [#/Vol] 2.04 10*3/uL 0.83-4.51 [facility] Absolute neutrophil countOrd ered By: Imani Persaud on 05-10-2025 Neutrophils (Bld) [#/Vol] 2.4 10*3/uL 2.0-7.7 [facility] Anion gap in Serum or Plasma Ordered By: Imani Persaud on 05-10-2025 Anion gap [Moles/Vol] 14 mmol/L 5-15 [facility] BUN/creatinine ratioOrdered By: Imani Persaud on 05-10-2025 Urea nitrogen/Creatinine [Mass ratio] 13.5 mg/mg 10-20 [facility] Bilirubin, totalOrdered By: Imani Persaud on 05-10-2025 Bilirubin [Mass/Vol] 0.37 mg/dL 0.00-1.30 [facility] [place] Blood band neutrophil count as percentage of total leukocytesOrdered By: Imani Persaud on 05-10-2025 Band form neutrophils/100 WBC (Bld) 3 % 0-5 [facility] Blood lymphocytes/100 leukoc ytesOrdered By: [facility] Persaud on 05-10-2025 Lymphocytes/100 WBC (Bld) 42 % High 19-41 [facility] Blood metamyelocytes/100 [place] kocytesOrdered By: [facility] Persaud on 05-10-2025 Metamyelocytes/100 WBC (Bld) 5 % High 0-1 [facility] Blood monocytes/100 leukocyt esOrdered By: [facility] Persaud on 05-10-2025 Monocytes/100 WBC (Bld) 3 % 0-10 [facility] Blood segmented neutrophils/ 100 leukocytesOrdered By: [facility] Cori on 05-10-2025 Segmented neutrophils/100 WBC (Bld) 47 % 47-70 [facility] Carbon dioxide, total [Moles /volume] in Central venous bloodOrdered By: Imani Persaud on 05-10-2025 CO2 [Moles/Vol] 21.6 mmol/L 21.0-32.0 [facility] Chloride assayOrdered By: Jonatan Persaud on 05-10-2025 Chloride [Moles/Vol] 105 mmol/L 98-108 [facility] [place] Comprehensive Metabolic Prof ilon 05-10-2025 Albumin [Mass/Vol] 3.4 g/dL Low 3.5-5.0 [facility] Comment on above: Performed By: #### L 501.2300, L501.5200, L500.4050, L100.0100 ####[facility] [address] [place], [address] Albumin/Globulin [Mass ratio] 1.1 {ratio} Normal 0.9-2.4 [facility] Comment on above: Performed By: #### L 501.2300, L501.5200, L500.4050, L100.0100 ####[facility] [address] [place], [address] ALK PHOS 90 U/L Normal 35-104 [facility] Comment on above: Performed By: #### L 501.2300, L501.5200, L500.4050, L100.0100 ####[facility] [address] [place], [address] ALT [Catalytic activity/Vol] 29 U/L Normal <=34 [facility] Comment on above: Performed By: #### L 501.2300, L501.5200, L500.4050, L100.0100 ####[facility] [address] [place], [address] AST [Catalytic activity/Vol] 25 U/L Normal <=31 [facility] Comment on above: Performed By: #### L 501.2300, L501.5200, L500.4050, L100.0100 ####[facility] [address] [place], [address] Bilirubin [Mass/Vol] 0.37 mg/dL Normal 0.00-1.30 [facility] [place] Comment on above: Performed By: #### L 501.2300, L501.5200, L500.4050, L100.0100 ####[facility] [address] [place], [address] BUN/CRE 13.5 RATIO Normal 10-20 [facility] Comment on above: Performed By: #### L 501.2300, L501.5200, L500.4050, L100.0100 ####[facility] [address] [place], [address] Calcium [Mass/Vol] 8.8 mg/dL Normal 7.6-11.0 [facility] Comment on above: Performed By: #### L 501.2300, L501.5200, L500.4050, L100.0100 ####[facility] [address] [place], [address] Chloride [Moles/Vol] 105 mmol/L Normal 98-108 [facility] [place] Comment on above: Performed By: #### L 501.2300, L501.5200, L500.4050, L100.0100 ####[facility] [address] [place], [address] CO2 [Moles/Vol] 21.6 mmol/L Normal 21.0-32.0 [facility] Comment on above: Performed By: #### L 501.2300, L501.5200, L500.4050, L100.0100 ####[facility] [address] [place], [address] Creatinine [Mass/Vol] 0.66 mg/dL Low 0.70-1.20 [facility] Comment on above: Performed By: #### L 501.2300, L501.5200, L500.4050, L100.0100 ####[facility] [address] [place], [address] ECRCL 116.58 ml/min Normal 50-250 [facility] Comment on above: Performed By: #### L 501.2300, L501.5200, L500.4050, L100.0100 ####[facility] [address] [place], [address] GAP 14 Normal 5-15 [facility] Comment on above: Performed By: #### L 501.2300, L501.5200, L500.4050, L100.0100 ####[facility] [address] [place], [address] GFR/1.73 sq M.predicted among non-blacks MDRD (S/P/Bld) [Vol rate/Area] 104 mL/min/{1.73_m2} Normal >60 [facility] Comment on above: Result Comment: mL/m in/1.73m2 CKD-EPI Creatinine Equation (2020) Performed By: #### L 501.2300, L501.5200, L500.4050, L100.0100 ####[facility] [address] [place], [address] Globulin (S) [Mass/Vol] 3.1 g/dL Normal 2.2-4.2 [facility] Comment on above: Performed By: #### L 501.2300, L501.5200, L500.4050, L100.0100 ####[facility] [address] [place], [address] Glucose [Mass/Vol] 139 mg/dL High 70-99 [facility] Comment on above: Performed By: #### L 501.2300, L501.5200, L500.4050, L100.0100 ####[facility] [address] [place], [address] Potassium [Moles/Vol] 3.5 mmol/L Normal 3.3-5.1 [facility] Comment on above: Performed By: #### L 501.2300, L501.5200, L500.4050, L100.0100 ####[facility] [address] [place], [address] Sodium [Moles/Vol] 140 mmol/L Normal 133-145 [facility] Comment on above: Performed By: #### L 501.2300, L501.5200, L500.4050, L100.0100 ####[facility] [address] [place], [address] T PROT 6.5 g/dL Normal 5.9-8.4 [facility] Comment on above: Performed By: #### L 501.2300, L501.5200, L500.4050, L100.0100 ####[facility] [address] [place], [address] Urea nitrogen [Mass/Vol] 9 mg/dL Normal 4-19 [facility] Comment on above: Performed By: #### L 501.2300, L501.5200, L500.4050, L100.0100 ####[facility] [address] [place], [address] Culture, Blood (WB)on 2024 CUB Blood cultures x2, f rom two different sites No growth in 5 days. Normal [facility] Comment on above: Performed By: #### M 200.1000 ####[facility] [address] [place], [address] Erythrocyte distribution wid th ratioOrdered By: Imani Persaud on 05-10-2025 Erythrocyte distribution width (RBC) [Ratio] 14.3 % 11.6-14.6 [facility] Erythrocyte distribution wid th standard deviationOrdered By: Imani Persaud on 05-10-2025 Erythrocyte distribution width (RBC) [Ratio] 39.9 fl 35.1-43.9 [facility] Erythrocyte morphology asses smentOrdered By: Imani Persaud on 05-10-2025 RBC morphology finding Nom (Bld) NORM C+C NORMAL NORM C&C [facility] Glomerular filtration rate ( GFR) estimation/1.73 sq m using serum, plasma, or whole bOrdered By: Imani Persaud on 05-10-2025 GFR/1.73 sq M.predicted among non-blacks MDRD (S/P/Bld) [Vol rate/Area] 104 mL/min/{1.73_m2} >60 [facility] Comment on above: mL/min/1.73m2 CKD-EP I Creatinine Equation (2020) Hematocrit Auto (Bld) [Volum e fraction]Ordered By: Imani Persaud on 05-10-2025 Hematocrit (Bld) [Volume fraction] 33.4 % Low 37-47 [facility] Hemoglobin measurementOrdere d By: [facility] Persaud on 05-10-2025 Hemoglobin (Bld) [Mass/Vol] 11.4 g/dL Low 12.0-15.0 [facility] Laboratory - Chemistry and C hemistry - challengeOrdered By: [facility] Persaud on 05-10-2025 AST [Catalytic activity/Vol] 25 U/L <32 [facility] MCV (mean corpuscular volume ) determinationOrdered By: [facility] Persaud on 05-10-2025 MCV (RBC) [Entitic vol] 84.3 fL 81-99 [facility] Magnesiumon 05-10-2025 Magnesium [Mass/Vol] 2.2 mg/dL Normal 1.5-2.2 [facility] [place] Comment on above: Performed By: #### L 501.2300, L501.5200, L500.4050, L100.0100 ####[facility] [address] [place], [address] Magnesium measurement (mass/ volume)Ordered By: [facility] Cori on 05-10-2025 Magnesium (Unsp spec) [Mass/Vol] 2.2 mg/dL 1.5-2.2 [facility] Mean corpuscular hemoglobin (MCH) determinationOrdered By: [facility] Persaud on 05-10-2025 MCH (RBC) [Entitic mass] 28.8 pg 27.0-32.0 [facility] Mean corpuscular hemoglobin concentration (MCHC) determinationOrdered By: [facility] Persaud on 05-10-2025 MCHC (RBC) [Mass/Vol] 34.1 g/dL 32-36 [facility] Mean platelet volume determi nationOrdered By: [facility] Persaud on 05-10-2025 Platelet mean volume (Bld) [Entitic vol] 9.4 fL 6.2-12.0 [facility] Oncology Visit Reporton 04-16 Oncology Visit Report Normal [facility] Phosphoruson 05-10-2025 Phosphate [Mass/Vol] 2.9 mg/dL Normal 2.7-4.5 [facility] [place] Comment on above: Performed By: #### L 501.2300, L501.5200, L500.4050, L100.0100 ####[facility] [address] [place], [address] Platelet countOrdered By: Jonatan Persaud on 05-10-2025 Platelets (Bld) [#/Vol] 399 10*3/uL 150-450 [facility] Platelet estimateOrdered By: Imani Persaud on 05-10-2025 Platelets LM Ql (Bld) ADEQUATE ADEQ [facility] Potassium measurement (mass/ volume)Ordered By: Imani Persaud on 05-10-2025 Potassium (Unsp spec) [Mass/Vol] 3.5 mmol/L 3.3-5.1 [facility] RBC Auto (Bld) [#/Vol]Ordere d By: Imani Persaud on 05-10-2025 RBC (Bld) [#/Vol] 3.96 10*6/uL Low 4.2-5.4 [facility] Review by pathologistOrdered By: Imani Persaud on 05-10-2025 Pathologist review Bassam (Unsp spec) [Interp] Susan turner [facility] Pathologist review Bassam (Unsp spec) [Interp] Reviewed [facility] Comment on above: Previous reported re sult: Susan turner Edited by: SURENDRA on 05/28/25:1526SEE REPORT IN PATIENT'S EMR AMENDED REPORT 05/28/25 1526 PATH REV previously reported as: Susan turner Serum creatinine measurement (mass/volume)Ordered By: Imani Persaud on 05-10-2025 Creatinine [Mass/Vol] 0.66 mg/dL Low 0.70-1.20 [facility] Serum globulin measurementOr dered By: Imani Persaud on 05-10-2025 Globulin (S) [Mass/Vol] 3.1 g/dL 2.2-4.2 [facility] Serum glucose measurement (m ass/volume)Ordered By: Imani Persaud on 05-10-2025 Glucose [Mass/Vol] 139 mg/dL High 70-99 [facility] Serum or plasma alanine del rio otransferase (ALT) measurementOrdered By: Imani Persaud on 05-10-2025 ALT [Catalytic activity/Vol] 29 U/L <35 [facility] Serum or plasma albumin cass urement (mass/volume)Ordered By: Imani Persaud on 05-10-2025 Albumin [Mass/Vol] 3.4 g/dL Low 3.5-5.0 [facility] Serum or plasma albumin/glob ulin mass ratioOrdered By: Imani Persaud on 05-10-2025 Albumin/Globulin [Mass ratio] 1.1 {ratio} 0.9-2.4 [facility] Serum or plasma alkaline tre sphatase measurementOrdered By: Imani Persaud on 05-10-2025 ALP [Catalytic activity/Vol] 90 U/L 35-104 [facility] Serum or plasma calcium cass urement (mass/volume)Ordered By: Imani Persaud on 05-10-2025 Calcium [Mass/Vol] 8.8 mg/dL 7.6-11.0 [facility] Serum or plasma urea nitroge n measurement (mass/volume)Ordered By: Imani Persaud on 05-10-2025 Urea nitrogen [Mass/Vol] 9 mg/dL 4-19 [facility] Sodium levelOrdered By: Jennifer Persaud on 05-10-2025 Sodium [Moles/Vol] 140 mmol/L 133-145 [facility] Total cell countOrdered By: Imani Persaud on 05-10-2025 Cells counted Molgen (Bld/Tiss) [#] 100 MANUAL DIFF [facility] Total proteinOrdered By: Lonnie Persaud on 05-10-2025 Protein [Mass/Vol] 6.5 g/dL 5.9-8.4 [facility] White blood cell (WBC) count Ordered By: Imani Persaud on 05-10-2025 WBC (Bld) [#/Vol] 4.9 10*3/uL 4.4-11.0 [facility] Urine Cultureon 05-07-2025 URC #1, 2 Below infectio n level. Mixed Gram Positive Organisms [place] Count 1000-10,000 MIXC Mixed contaminants. Submit a new specimen if indicated. GPCENT [place] Count <1000 Normal [facility] Comment on above: Performed By: #### L 400.0001, M100.2200 ####[facility] [address] [place], [address] Absolute lymphocyte countOrd ered By: Radha Norman on 05-04-2025 Lymphocytes Auto (Unsp spec) [#/Vol] 0.60 10*3/uL Low 0.83-4.51 [facility] Absolute neutrophil countOrd ered By: Radha Norman on 05-04-2025 Neutrophils (Bld) [#/Vol] 0.1 10*3/uL Low 2.0-7.7 [facility] Anion gap in Serum or Plasma Ordered By: Radha Norman on 05-04-2025 Anion gap [Moles/Vol] 11 mmol/L 5-15 [facility] Automated lymphocyte count a s percentage of total leukocytesOrdered By: Radha Norman on 05-04-2025 Lymphocytes/100 WBC Auto (Unsp spec) 71.4 % High 19-41 [facility] BUN/creatinine ratioOrdered By: Radha Norman on 05-04-2025 Urea nitrogen/Creatinine [Mass ratio] 13.7 mg/mg 10-20 [facility] Basophil percentageOrdered B y: Radha Norman on 05-04-2025 Basophils/100 WBC (Bld) 2.4 % High 0-1 [facility] Bilirubin Test strip Ql (U)O rdered By: Radha Norman on 05-04-2025 Bilirubin Ql (U) 1 mg/dL High Negative [facility] Comment on above: COLOR OF URINE MAY A FFECT DIPSTICK RESULTS. Bilirubin, totalOrdered By: Radha Norman on 05-04-2025 Bilirubin [Mass/Vol] 0.62 mg/dL 0.00-1.30 [facility] [place] Blood cultureOrdered By: Kavya Norman on 05-04-2025 Bacteria identified Cx Nom (Bld) No growth in 5 days. [facility] Blood manual differential co mment interpretation (narrative result)Ordered By: Radha Norman on 06-20-2025 Manual differential comment Bassam (Bld) [Interp] SCANNED [facility] CBC W/Diff, Automatedon 04-16 PLT EST MKD DEC Normal ADEQ [facility] Comment on above: Performed By: #### L 100.0100, L503.6005, L300.3900, L500.4050, L509.7001 ####[facility] [address] [place], [address] SMEAR COMMENT SCANNED Normal [facility] Comment on above: Performed By: #### L 100.0100, L503.6005, L300.3900, L500.4050, L509.7001 ####[facility] [address] [place], [address] Carbon dioxide, total [Moles /volume] in Central venous bloodOrdered By: Radha Norman on 05-04-2025 CO2 [Moles/Vol] 21.2 mmol/L 21.0-32.0 [facility] Chest PA and Lateralon 05-04 Chest PA and Lateral Normal [facility] Chloride assayOrdered By: Melissa Norman on 05-04-2025 Chloride [Moles/Vol] 101 mmol/L 98-108 [facility] Comprehensive Metabolic Prof ilon 05-04-2025 Albumin [Mass/Vol] 3.4 g/dL Low 3.5-5.0 [facility] Comment on above: Performed By: #### L 100.0100, L503.6005, L300.3900, L500.4050, L509.7001 ####[facility] [address] [place], [address] Albumin/Globulin [Mass ratio] 1.0 {ratio} Normal 0.9-2.4 [facility] Comment on above: Performed By: #### L 100.0100, L503.6005, L300.3900, L500.4050, L509.7001 ####[facility] [address] [place], [address] ALK PHOS 90 U/L Normal 35-104 [facility] Comment on above: Performed By: #### L 100.0100, L503.6005, L300.3900, L500.4050, L509.7001 ####[facility] [address] [place], [address] ALT [Catalytic activity/Vol] 49 U/L High <=34 [facility] Comment on above: Performed By: #### L 100.0100, L503.6005, L300.3900, L500.4050, L509.7001 ####[facility] [address] [place], [address] AST [Catalytic activity/Vol] 43 U/L High <=31 [facility] Comment on above: Performed By: #### L 100.0100, L503.6005, L300.3900, L500.4050, L509.7001 ####[facility] [address] [place], [address] Bilirubin [Mass/Vol] 0.62 mg/dL Normal 0.00-1.30 [facility] Comment on above: Performed By: #### L 100.0100, L503.6005, L300.3900, L500.4050, L509.7001 ####[facility] [address] [place], [address] BUN/CRE 13.7 RATIO Normal 10-20 [facility] Comment on above: Performed By: #### L 100.0100, L503.6005, L300.3900, L500.4050, L509.7001 ####[facility] [address] [place], [address] Calcium [Mass/Vol] 8.7 mg/dL Normal 7.6-11.0 [facility] Comment on above: Performed By: #### L 100.0100, L503.6005, L300.3900, L500.4050, L509.7001 ####[facility] [address] [place], [address] Chloride [Moles/Vol] 101 mmol/L Normal 98-108 [facility] [place] Comment on above: Performed By: #### L 100.0100, L503.6005, L300.3900, L500.4050, L509.7001 ####[facility] [address] [place], [address] CO2 [Moles/Vol] 21.2 mmol/L Normal 21.0-32.0 [facility] Comment on above: Performed By: #### L 100.0100, L503.6005, L300.3900, L500.4050, L509.7001 ####[facility] [address] [place], [address] Creatinine [Mass/Vol] 0.59 mg/dL Low 0.70-1.20 [facility] Comment on above: Performed By: #### L 100.0100, L503.6005, L300.3900, L500.4050, L509.7001 ####[facility] [address] [place], [address] ECRCL 130.14 ml/min Normal 50-250 [facility] Comment on above: Performed By: #### L 100.0100, L503.6005, L300.3900, L500.4050, L509.7001 ####[facility] [address] [place], [address] GAP 11 Normal 5-15 [facility] Comment on above: Performed By: #### L 100.0100, L503.6005, L300.3900, L500.4050, L509.7001 ####[facility] [address] [place], [address] GFR/1.73 sq M.predicted among non-blacks MDRD (S/P/Bld) [Vol rate/Area] 107 mL/min/{1.73_m2} Normal >60 [facility] Comment on above: Result Comment: mL/m in/1.73m2 CKD-EPI Creatinine Equation (2020) Performed By: #### L 100.0100, L503.6005, L300.3900, L500.4050, L509.7001 ####[facility] [address] [place], [address] Globulin (S) [Mass/Vol] 3.4 g/dL Normal 2.2-4.2 [facility] Comment on above: Performed By: #### L 100.0100, L503.6005, L300.3900, L500.4050, L509.7001 ####[facility] [address] [place], [address] Glucose [Mass/Vol] 115 mg/dL High 70-99 [facility] Comment on above: Performed By: #### L 100.0100, L503.6005, L300.3900, L500.4050, L509.7001 ####[facility] [address] [place], [address] Potassium [Moles/Vol] 3.7 mmol/L Normal 3.3-5.1 [facility] Comment on above: Performed By: #### L 100.0100, L503.6005, L300.3900, L500.4050, L509.7001 ####[facility] [address] [place], [address] Sodium [Moles/Vol] 133 mmol/L Normal 133-145 [facility] Comment on above: Performed By: #### L 100.0100, L503.6005, L300.3900, L500.4050, L509.7001 ####[facility] [address] [place], [address] T PROT 6.7 g/dL Normal 5.9-8.4 [facility] Comment on above: Performed By: #### L 100.0100, L503.6005, L300.3900, L500.4050, L509.7001 ####[facility] [address] [place], [address] Urea nitrogen [Mass/Vol] 8 mg/dL Normal 4-19 [facility] Comment on above: Performed By: #### L 100.0100, L503.6005, L300.3900, L500.4050, L509.7001 ####[facility] [address] [place], [address] Culture, Blood (WB)on 2024 CUB No growth in 5 days. Normal [facility] Comment on above: Performed By: #### L 300.4310, L503.6005, L500.4050, M200.1000, L300.3900, L100.0100 ####[facility] [address] [place], [address] CUB No growth in 5 days. Normal [facility] Comment on above: Performed By: #### M 200.1000 ####[facility] [address] [place], [place], [id number] Emergency Department Summary on 05-04-2025 Emergency Department Summary Normal [facility] Eosinophil percentageOrdered By: Radha Norman on 05-04-2025 Eosinophils/100 WBC (Bld) 3.6 % 0-5 [facility] Erythrocyte distribution wid th ratioOrdered By: Radha Norman on 05-04-2025 Erythrocyte distribution width (RBC) [Ratio] 12.4 % 11.6-14.6 [facility] Erythrocyte distribution wid th standard deviationOrdered By: Radha Norman on 05-04-2025 Erythrocyte distribution width (RBC) [Ratio] 36.2 fl 35.1-43.9 [facility] Glomerular filtration rate ( GFR) estimation/1.73 sq m using serum, plasma, or whole bOrdered By: Radha Norman on 05-04-2025 GFR/1.73 sq M.predicted among non-blacks MDRD (S/P/Bld) [Vol rate/Area] 107 mL/min/{1.73_m2} >60 [facility] Comment on above: mL/min/1.73m2 CKD-EP I Creatinine Equation (2020) Haptoglobinon 05-04-2025 HAPTOGLOBIN 361 mg/dL High 33-346 [facility] Comment on above: Order Comment: MARIEL Angulo ADD ON Result Comment: Perf ormed at: [employer] [facility] [place] [id number] Director: Richi Vargas PhD, Phone: [phone] Performed By: #### L 504.2610, L100.9915, L3100.1106 ####[facility] [address] [place], [address] Hematocrit Auto (Bld) [Volum e fraction]Ordered By: Radah Norman on 05-04-2025 Hematocrit (Bld) [Volume fraction] 30.4 % Low 37-47 [facility] Hemoglobin measurementOrdere d By: Radha Norman on 05-04-2025 Hemoglobin (Bld) [Mass/Vol] 10.7 g/dL Low 12.0-15.0 [facility] Immature granulocytes/100 WB C Auto (Bld)Ordered By: Radha Norman on 05-04-2025 Immature granulocytes/100 WBC (Bld) 4.800 % High 0.0-0.9 [facility] Comment on above: IG% - Immature Granu locytes (promyelocytes, myelocytes and metamyelocytes) > 1% indicates that a LEFT SHIFT is Present. International normalized rat io (INR) calculationOrdered By: Girish Mcgarry on 05-04-2025 INR Coag (Bld) [Relative time] 1.2 {INR} [facility] Ketones Test strip Ql (U)Ord ered By: Radha Norman on 05-04-2025 Ketones Ql (U) Negative Negative [facility] L509.7001on 05-04-2025 Procalcitonin 0.11 ng/mL Normal <=0.10 [facility] Comment on above: Result Comment: Inte rpretation:<0.10-0.25 ng/mL: Antibiotic therapy discouraged. Bacterialinfection unlikely.0.25-0.50 ng/mL: Antibiotic therapy encouraged. Bacterialinfection possible.>0.50 ng/mL: Antibiotic therapy strongly encouraged.Suggestive of presence of bacterial infection.PCT should always be interpreted in the clinical context ofthe patient. Therefore, clinicians should use the PCTresults in conjunction with other laboratory findings andclinical signs of the patient. Performed By: #### L 100.0100, L503.6005, L300.3900, L500.4050, L509.7001 ####[facility] [address] [place], [place], [id number] Laboratory - Chemistry and C hemistry - challengeOrdered By: Radha Norman on 05-04-2025 AST [Catalytic activity/Vol] 43 U/L High <32 [facility] Lactic Acidon 05-04-2025 Lactate [Moles/Vol] mmol/L Normal 0.0-2.0 [facility] Comment on above: Order Comment: Y Performed By: #### L 100.0100, L503.6005, L300.3900, L500.4050, L509.7001 ####[facility] [address] [place], [place], [id number] Lactic acid measurementOrder ed By: Radha Norman on 05-04-2025 Lactate [Moles/Vol] mmol/L 0.0-2.0 [facility] MCV (mean corpuscular volume ) determinationOrdered By: Radha Norman on 05-04-2025 MCV (RBC) [Entitic vol] 81.1 fL 81-99 [facility] Mean corpuscular hemoglobin (MCH) determinationOrdered By: Radha Norman on 05-04-2025 MCH (RBC) [Entitic mass] 28.5 pg 27.0-32.0 [facility] Mean corpuscular hemoglobin concentration (MCHC) determinationOrdered By: Radha Norman on 05-04-2025 MCHC (RBC) [Mass/Vol] 35.2 g/dL 32-36 [facility] Mean platelet volume determi nationOrdered By: Radha Norman on 05-04-2025 Platelet mean volume (Bld) [Entitic vol] 10.9 fL 6.2-12.0 [facility] Microscopic analysis of urin e for red blood cells (RBC)Ordered By: Radha Norman on 05-04-2025 Microscopic analysis of urine for red blood cells (RBC) > 100 SEEN /hpf 0-5 [facility] Monocyte percentageOrdered B y: Radha Norman on 05-04-2025 Monocytes/100 WBC (Bld) 11.9 % High 0-10 [facility] Mucus LM Ql (Urine sed)Order ed By: Radha Norman on 05-04-2025 Mucus Ql (Urine sed) 1+ /hpf [facility] Neutrophil percentageOrdered By: Radha Norman on 05-04-2025 Neutrophils/100 WBC (Bld) 5.9 % Low 47-70 [facility] Nitrite Test strip Ql (U)Ord ered By: Radha Norman on 05-04-2025 Nitrite Ql (U) Positive High Negative [facility] Nucleated red blood cell per centageOrdered By: Radha Norman on 05-04-2025 Nucleated RBC/100 WBC (Bld) [Ratio] 4.8 % 0-5 [facility] Platelet countOrdered By: Melissa Norman on 05-04-2025 Platelets (Bld) [#/Vol] 35 10*3/uL Low 150-450 [facility] Comment on above: CRITICAL VALUE HOFFMAN D TO PHILLIP MCKENZIE05/04/25 2007 Leia Berger.RESULTS READ BACK BY SAME. Platelet estimateOrdered By: Radha Norman on 05-04-2025 Platelets LM Ql (Bld) MKD DEC ADEQ [facility] Potassium measurement (mass/ volume)Ordered By: Radha Norman on 05-04-2025 Potassium (Unsp spec) [Mass/Vol] 3.7 mmol/L 3.3-5.1 [facility] Procalcitonin [Mass/volume] in Serum or Plasma by ImmunoassayOrdered By: Radhadavid Norman on 05-04-2025 Procalcitonin IA [Mass/Vol] 0.11 ng/mL <0.11 [facility] Comment on above: Interpretation:<0.10 -0.25 ng/mL: Antibiotic therapy discouraged. Bacterial infection unlikely.0.25-0.50 ng/mL: Antibiotic therapy encouraged. Bacterial infection possible.>0.50 ng/mL: Antibiotic therapy strongly encouraged. Suggestive of presence of bacterial infection.PCT should always be interpreted in the clinical context of the patient. Therefore, clinicians should use the PCT results in conjunction with other laboratory findings and clinical signs of the patient. Protein Test strip Ql (U)Ord ered By: Radha Norman on 05-04-2025 Protein Ql (U) 100 mg/dl High Negative [facility] Prothrombin Time w/INRon INR Coag (PPP) [Relative time] 1.2 {INR} Normal [facility] Comment on above: Performed By: #### L 300.3900 ####[facility] [address] [place], [address] PT Coag (PPP) [Time] 15.0 s High 11.7-14.9 [facility] Comment on above: Performed By: #### L 300.3900 ####[facility] [address] [place], [address] INR Normal [facility] Comment on above: Result Comment: This specimen has been REJECTED due to Laboratory criteria:Quantity Not Sufficient.PHILLIP MAGALY has been notified of need of recollection.05/04/252011 Leia Berger Performed By: #### L 100.0100, L503.6005, L300.3900, L500.4050, L509.7001 ####[facility] [address] [place], [address] PROTIME Normal 11.7-14.9 [facility] Comment on above: Result Comment: This specimen has been REJECTED due to Laboratory criteria:Quantity Not Sufficient.PHILLIP MCKENZIE has been notified of need of recollection.05/04/252011 Leia Berger Performed By: #### L 100.0100, L503.6005, L300.3900, L500.4050, L509.7001 ####[facility] [address] [place], [address] Prothrombin timeOrdered By: Girish Mcgarry on 05-04-2025 PT Coag (PPP) [Time] 15.0 s High 11.7-14.9 [facility] RBC Auto (Bld) [#/Vol]Ordere d By: Radha Norman on 05-04-2025 RBC (Bld) [#/Vol] 3.75 10*6/uL Low 4.2-5.4 [facility] Review by pathologistOrdered By: Radha Norman on 05-04-2025 Pathologist review Bassam (Unsp spec) [Interp] SILK SPOTTER [facility] Comment on above: SENT TO PATH 05/03/25 Serum creatinine measurement (mass/volume)Ordered By: Radha Norman on 05-04-2025 Creatinine [Mass/Vol] 0.59 mg/dL Low 0.70-1.20 [facility] Serum globulin measurementOr dered By: Radha Norman on 05-04-2025 Globulin (S) [Mass/Vol] 3.4 g/dL 2.2-4.2 [facility] Serum glucose measurement (m ass/volume)Ordered By: Radha Norman on 05-04-2025 Glucose [Mass/Vol] 115 mg/dL High 70-99 [facility] Serum or plasma alanine del rio otransferase (ALT) measurementOrdered By: Radha Norman on 05-04-2025 ALT [Catalytic activity/Vol] 49 U/L High <35 [facility] Serum or plasma albumin cass urement (mass/volume)Ordered By: Radha Norman on 05-04-2025 Albumin [Mass/Vol] 3.4 g/dL Low 3.5-5.0 [facility] Serum or plasma albumin/glob ulin mass ratioOrdered By: Radha Norman on 05-04-2025 Albumin/Globulin [Mass ratio] 1.0 {ratio} 0.9-2.4 [facility] Serum or plasma alkaline tre sphatase measurementOrdered By: Radha Norman on 05-04-2025 ALP [Catalytic activity/Vol] 90 U/L 35-104 [facility] Serum or plasma calcium cass urement (mass/volume)Ordered By: Radha Norman on 05-04-2025 Calcium [Mass/Vol] 8.7 mg/dL 7.6-11.0 [facility] Serum or plasma urea nitroge n measurement (mass/volume)Ordered By: Radha Norman on 05-04-2025 Urea nitrogen [Mass/Vol] 8 mg/dL 4-19 [facility] Sodium levelOrdered By: Radha Norman on 05-04-2025 Sodium [Moles/Vol] 133 mmol/L 133-145 [facility] Squamous epithelial cells de tection in urine sediment by light microscopyOrdered By: Radha Norman on 05-04-2025 Epithelial cells.squamous LM Ql (Urine sed) 0-5 SEEN /hpf 5-10 [facility] Total proteinOrdered By: Kavya Norman on 05-04-2025 Protein [Mass/Vol] 6.7 g/dL 5.9-8.4 [facility] Transitional cells detection in urine sediment by light microscopyOrdered By: Radha Norman on 05-04-2025 Transitional cells LM Ql (Urine sed) 0-5 SEEN /hpf 0-5 [facility] Urinalysis, Completeon 05-04 BACTERIA 2+ /hpf Normal None Seen [facility] Comment on above: Order Comment: COLOR OF URINE MAY AFFECT DIPSTICK RESULTS.FACILITY SECURITY OFFICER TO SPECIFY Performed By: #### L 400.0001, M1.2199 ####[facility] [address] [place], [place], [id number] EPI,SQUAMOUS 0-5 SEEN Normal 5-10 [facility] Comment on above: Order Comment: COLOR OF URINE MAY AFFECT DIPSTICK RESULTS.FACILITY SECURITY OFFICER TO SPECIFY Performed By: #### L 400.0001, M1.2199 ####[facility] [address] [place], [address] EPI,TRANSITION 0-5 SEEN Normal 0-5 [facility] Comment on above: Order Comment: COLOR OF URINE MAY AFFECT DIPSTICK RESULTS.FACILITY SECURITY OFFICER TO SPECIFY Performed By: #### L 400.0001, M100.2200 ####[facility] [address] [place], [address] Mucus Ql (Urine sed) 1+ /hpf Normal [facility] Comment on above: Order Comment: COLOR OF URINE MAY AFFECT DIPSTICK RESULTS.FACILITY SECURITY OFFICER TO SPECIFY Performed By: #### L 400.0001, M100.2200 ####[facility] [address] [place], [address] WBC 5-10 SEEN Normal 0-5 [facility] Comment on above: Order Comment: COLOR OF URINE MAY AFFECT DIPSTICK RESULTS.FACILITY SECURITY OFFICER TO SPECIFY Performed By: #### L 400.0001, M100.2200 ####[facility] [address] [place], [address] RBC > 100 SEEN Normal 0-5 [facility] Comment on above: Order Comment: COLOR OF URINE MAY AFFECT DIPSTICK RESULTS.FACILITY SECURITY OFFICER TO SPECIFY Performed By: #### L 400.0001, M100.2200 ####[facility] [address] [place], [address] Urine clarityOrdered By: Kavya Norman on 05-04-2025 Clarity (U) Cloudy Clear [facility] Urine color determinationOrd ered By: Radha Norman on 05-04-2025 Color (U) Mirna Yellow [facility] Urine cultureOrdered By: Kavya Norman on 05-04-2025 Bacteria identified Cx Nom (U) Positive Abnormal [facility] Bacteria identified Cx Nom (U) GPC Poss Enterococcus sp Abnormal [facility] Urine glucose detectionOrder ed By: Radha Norman on 05-04-2025 Glucose Ql (U) Normal mg/dl Normal [facility] Urine leukocyte esterase det ection by dipstickOrdered By: Radha Norman on 05-04-2025 Leukocyte esterase Test strip Ql (U) 25 /ul High Negative [facility] Urine pHOrdered By: Radha gonzalez on 05-04-2025 pH (U) 6.0 [pH] 5.0 - 8.0 [facility] Urine sediment bacteria coun t by microscopy (number/high power field)Ordered By: Radha Norman on 05-04-2025 Bacteria LM.HPF (Urine sed) [#/Area] 2 /[HPF] None Seen [facility] Urine specific gravity measu rementOrdered By: Radha Norman on 05-04-2025 Specific gravity (U) [Rel density] 1.015 1.002-1.030 [facility] Urine urobilinogen measureme ntOrdered By: Radha Norman on 05-04-2025 Urobilinogen Ql (U) 4 mg/dl High Normal [facility] White blood cell (WBC) count Ordered By: Radha Norman on 05-04-2025 WBC (Bld) [#/Vol] 0.8 10*3/uL Low 4.4-11.0 [facility] Comment on above: CRITICAL VALUE HOFFMAN D TO PHILLIP MCKENZIE05/04/25 2009 Leia Berger.RESULTS READ BACK BY SAME. White blood cell countOrdere d By: Radha Norman on 05-04-2025 White blood cell count 5-10 SEEN /hpf 0-5 [facility] Absolute lymphocyte countOrd ered By: Imani Persaud on 05-03-2025 Lymphocytes Auto (Unsp spec) [#/Vol] 0.40 10*3/uL Low 0.83-4.51 [facility] Absolute neutrophil countOrd ered By: Imani Persaud on 05-03-2025 Neutrophils (Bld) [#/Vol] 0.0 10*3/uL Low 2.0-7.7 [facility] Anion gap in Serum or Plasma Ordered By: Imani Persaud on 05-03-2025 Anion gap [Moles/Vol] 12 mmol/L 5-15 [facility] Automated lymphocyte count a s percentage of total leukocytesOrdered By: Imani Persaud on 05-03-2025 Lymphocytes/100 WBC Auto (Unsp spec) 80.0 % High 19- [facility] [id number] 05-03-2025 DIRECT SUSHMA NEG w/POLYSPECIFIC Normal NEGATIVE [facility] Comment on above: Performed By: #### B 51937-8 ####[facility] [address] [place], [address] BUN/creatinine ratioOrdered By: Imani Persaud on 05-03-2025 Urea nitrogen/Creatinine [Mass ratio] 16.5 mg/mg - [facility] Basic Metabolic Profile (BMP )on 05-03-2025 BUN/CRE 16.5 RATIO Normal 09-03 [facility] Comment on above: Performed By: #### L 500.2500, L501.2300, L100.0100, L501.5200 ####[facility] [address] [place], [address] Calcium [Mass/Vol] 8.7 mg/dL Normal 7.6-11.0 [facility] Comment on above: Performed By: #### L 500.2500, L501.2300, L100.0100, L501.5200 ####[facility] [address] [place], [address] Chloride [Moles/Vol] 101 mmol/L Normal 98-108 [facility] [place] Comment on above: Performed By: #### L 500.2500, L501.2300, L100.0100, L501.5200 ####[facility] [address] [place], [address] CO2 [Moles/Vol] 20.0 mmol/L Low 21.0-32.0 [facility] Comment on above: Performed By: #### L 500.2500, L501.2300, L100.0100, L501.5200 ####[facility] [address] [place], [address] Creatinine [Mass/Vol] 0.59 mg/dL Low 0.70-1.20 [facility] Comment on above: Performed By: #### L 500.2500, L501.2300, L100.0100, L501.5200 ####[facility] [address] [place], [address] ECRCL 130.42 ml/min Normal 50-250 [facility] Comment on above: Performed By: #### L 500.2500, L501.2300, L100.0100, L501.5200 ####[facility] [address] [place], [address] GAP 12 Normal 5-15 [facility] Comment on above: Performed By: #### L 500.2500, L501.2300, L100.0100, L501.5200 ####[facility] [address] [place], [address] GFR/1.73 sq M.predicted among non-blacks MDRD (S/P/Bld) [Vol rate/Area] 107 mL/min/{1.73_m2} Normal >60 [facility] Comment on above: Result Comment: mL/m in/1.73m2 CKD-EPI Creatinine Equation (2020) Performed By: #### L 500.2500, L501.2300, L100.0100, L501.5200 ####[facility] [address] [place], [address] Glucose [Mass/Vol] 123 mg/dL High 70-99 [facility] Comment on above: Performed By: #### L 500.2500, L501.2300, L100.0100, L501.5200 ####[facility] [address] [place], [address] Potassium [Moles/Vol] 4.1 mmol/L Normal 3.3-5.1 [facility] Comment on above: Performed By: #### L 500.2500, L501.2300, L100.0100, L501.5200 ####[facility] [address] [place], [address] Sodium [Moles/Vol] 134 mmol/L Normal 133-145 [facility] Comment on above: Performed By: #### L 500.2500, L501.2300, L100.0100, L501.5200 ####[facility] [address] [place], [address] Urea nitrogen [Mass/Vol] 10 mg/dL Normal 4-19 [facility] Comment on above: Performed By: #### L 500.2500, L501.2300, L100.0100, L501.5200 ####[facility] [address] [place], [address] Basophil percentageOrdered B y: Imani Persaud on 05-03-2025 Basophils/100 WBC (Bld) 2.0 % High 0-1 [facility] Bilirubin Test strip Ql (U)O rdered By: Delmis Corral on 05-03-2025 Bilirubin Ql (U) 3 mg/dL High Negative [facility] Comment on above: COLOR OF URINE MAY A FFECT DIPSTICK RESULTS. Bilirubin directOrdered By: Delmis Corral on 05-03-2025 Bilirubin.direct [Mass/Vol] 0.53 mg/dL High 0.00-0.30 [facility] Bilirubin, totalOrdered By: Delmis Corral on 05-03-2025 Bilirubin [Mass/Vol] 1.12 mg/dL 0.00-1.30 [facility] Blood manual differential co mment interpretation (narrative result)Ordered By: Imani Persaud on 05-03-2025 Manual differential comment Bassam (Bld) [Interp] SCANNED [facility] Comment on above: LEUKOCYTOPENIA NOTED Carbon dioxide, total [Moles /volume] in Central venous bloodOrdered By: Imani Persaud on 05-03-2025 CO2 [Moles/Vol] 20.0 mmol/L Low 21.0-32.0 [facility] Chloride assayOrdered By: Jonatan Persaud on 05-03-2025 Chloride [Moles/Vol] 101 mmol/L 98-108 [facility] Eosinophil percentageOrdered By: Imani Persaud on 05-03-2025 Eosinophils/100 WBC (Bld) 6.0 % High 0-5 [facility] Erythrocyte distribution wid th ratioOrdered By: Imani Persaud on 05-03-2025 Erythrocyte distribution width (RBC) [Ratio] 12.5 % 11.6-14.6 [facility] Erythrocyte distribution wid th standard deviationOrdered By: Jenniferira Persaud on 05-03-2025 Erythrocyte distribution width (RBC) [Ratio] 36.5 fl 35.1-43.9 [facility] Glomerular filtration rate ( GFR) estimation/1.73 sq m using serum, plasma, or whole bOrdered By: Imani Persaud on 05-03-2025 GFR/1.73 sq M.predicted among non-blacks MDRD (S/P/Bld) [Vol rate/Area] 107 mL/min/{1.73_m2} >60 [facility] Comment on above: mL/min/1.73m2 CKD-EP I Creatinine Equation (2020) Hematocrit Auto (Bld) [Volum e fraction]Ordered By: Imani Persaud on 05-03-2025 Hematocrit (Bld) [Volume fraction] 32.4 % Low 37-47 [facility] Hemoglobin measurementOrdere d By: Imani Persaud on 05-03-2025 Hemoglobin (Bld) [Mass/Vol] 11.6 g/dL Low 12.0-15.0 [facility] Immature granulocytes/100 WB C Auto (Bld)Ordered By: Imani Persaud on 05-03-2025 Immature granulocytes/100 WBC (Bld) 0.000 % 0.0-0.9 [facility] Comment on above: IG% - Immature Granu locytes (promyelocytes, myelocytes and metamyelocytes) > 1% indicates that a LEFT SHIFT is Present. Immature platelet percentage Ordered By: Delmis Corral on 05-03-2025 Platelets reticulated/100 platelets Auto (Bld) 4.4 % 1.0-7.9 [facility] Comment on above: Low PLT + Low IPF greenfield ggest a bone marrow production disorderLow PLT + high IPF suggests peripheral destruction(e.g.ITP, TTP, HIT, DIC, autoimmune) or bone marrow recoveryTrending of serial IPF measurements is recommended when evaluating for bone marrow responesValue above normal range indicates an increase in RBC cellular response from bone marrow. Ketones Test strip Ql (U)Ord ered By: Delmis Corral on 05-03-2025 Ketones Ql (U) 5 mg/dl High Negative [facility] LDHon 05-03-2025 LDH 216 U/L Normal 84-246 [facility] Comment on above: Order Comment: ANNMARIE Angulo ADD ON1 Result Comment: Hemo lysis present, Results??could be affected.?? Performed By: #### L 504.2610, L100.9950, L3100.1850 ####[facility] [address] [place], [place], [id number] Laboratory - Chemistry and C hemistry - challengeOrdered By: Delmis Corral on 05-03-2025 AST [Catalytic activity/Vol] 40 U/L High <32 [facility] Lactate dehydrogenase (LDH) measurementOrdered By: Delmis Corral on 05-03-2025 LDH [Catalytic activity/Vol] 216 U/L 84-246 [facility] Comment on above: Hemolysis present, R esults could be affected. Liver Profileon 05-03-2025 Albumin [Mass/Vol] 3.5 g/dL Normal 3.5-5.0 [facility] Comment on above: Order Comment: MARIEL Angulo ADD ON Performed By: #### L 500.3400 ####[facility] [address] [place], [place], [id number] ALK PHOS 97 U/L Normal 35-104 [facility] Comment on above: Order Comment: MARIEL Angulo ADD ON Performed By: #### L 500.3400 ####[facility] [address] [place], [place], [id number] ALT [Catalytic activity/Vol] 44 U/L High <=34 [facility] Comment on above: Order Comment: PLEAS E ADD ON Performed By: #### L 500.3400 ####[facility] [address] [place], [address] AST [Catalytic activity/Vol] 40 U/L High <=31 [facility] Comment on above: Order Comment: PLEAS E ADD ON Performed By: #### L 500.3400 ####[facility] [address] [place], [address] Bilirubin [Mass/Vol] 1.12 mg/dL Normal 0.00-1.30 [facility] Comment on above: Order Comment: PLEAS E ADD ON Performed By: #### L 500.3400 ####[facility] [address] [place], [address] Bilirubin.direct [Mass/Vol] 0.53 mg/dL High 0.00-0.30 [facility] Comment on above: Order Comment: PLEAS E ADD ON Performed By: #### L 500.3400 ####[facility] [address] [place], [address] Globulin (S) [Mass/Vol] 3.5 g/dL Normal 2.2-4.2 [facility] Comment on above: Order Comment: PLEAS E ADD ON Performed By: #### L 500.3400 ####[facility] [address] [place], [address] T PROT 6.9 g/dL Normal 5.9-8.4 [facility] Comment on above: Order Comment: PLEAS E ADD ON Performed By: #### L 500.3400 ####[facility] [address] [place], [address] MCV (mean corpuscular volume ) determinationOrdered By: Imani Persaud on 05-03-2025 MCV (RBC) [Entitic vol] 80.6 fL Low 81-99 [facility] Magnesiumon 05-03-2025 Magnesium [Mass/Vol] 1.9 mg/dL Normal 1.5-2.2 [facility] Comment on above: Performed By: #### L 500.2500, L501.2300, L100.0100, L501.5200 ####[facility] [address] [place], [address] Magnesium measurement (mass/ volume)Ordered By: Imani Persaud on 05-03-2025 Magnesium (Unsp spec) [Mass/Vol] 1.9 mg/dL 1.5-2.2 [facility] Mean corpuscular hemoglobin (MCH) determinationOrdered By: Imani Persaud on 05-03-2025 MCH (RBC) [Entitic mass] 28.9 pg 27.0-32.0 [facility] Mean corpuscular hemoglobin concentration (MCHC) determinationOrdered By: Imani Persaud on 05-03-2025 MCHC (RBC) [Mass/Vol] 35.8 g/dL 32-36 [facility] Mean platelet volume determi nationOrdered By: Imani Persaud on 05-03-2025 Platelet mean volume (Bld) [Entitic vol] 11.4 fL 6.2-12.0 [facility] Microscopic analysis of urin e for red blood cells (RBC)Ordered By: Delmis Corral on 05-03-2025 Microscopic analysis of urine for red blood cells (RBC) > 100 SEEN /hpf 0-5 [facility] Monocyte percentageOrdered B y: Imani Persaud on 05-03-2025 Monocytes/100 WBC (Bld) 6.0 % 0-10 [facility] Mucus LM Ql (Urine sed)Order ed By: Delmis Corral on 05-03-2025 Mucus Ql (Urine sed) 0 SEEN /hpf [facility] Neutrophil percentageOrdered By: Imani Persaud on 05-03-2025 Neutrophils/100 WBC (Bld) 6.0 % Low 47-70 [facility] Nitrite Test strip Ql (U)Ord ered By: Delmis Corral on 05-03-2025 Nitrite Ql (U) Positive High Negative [facility] Nucleated red blood cell per centageOrdered By: Imani Persaud on 05-03-2025 Nucleated RBC/100 WBC (Bld) [Ratio] 0 % 0-5 [facility] Oncology Visit Reporton 04-15 Oncology Visit Report Normal [facility] Phosphoruson 05-03-2025 Phosphate [Mass/Vol] 2.1 mg/dL Low 2.7-4.5 [facility] Comment on above: Performed By: #### L 500.2500, L501.2300, L100.0100, L501.5200 ####[facility] [address] [place], [address] Platelet countOrdered By: Jonatan Persaud on 05-03-2025 Platelets (Bld) [#/Vol] 28 10*3/uL Low 150-450 [facility] Comment on above: CRITICAL VALUE HOFFMAN D TO [id number]/19/25 1126 [address].RESULTS READ BACK BY SAME. Platelet estimateOrdered By: Imani Persaud on 05-03-2025 Platelets LM Ql (Bld) MKD DEC ADEQ [facility] Potassium measurement (mass/ volume)Ordered By: Imani Persaud on 05-03-2025 Potassium (Unsp spec) [Mass/Vol] 4.1 mmol/L 3.3-5.1 [facility] Protein Test strip Ql (U)Ord ered By: Delmis Corral on 05-03-2025 Protein Ql (U) 100 mg/dl High Negative [facility] RBC Auto (Bld) [#/Vol]Ordere d By: Imani Persaud on 05-03-2025 RBC (Bld) [#/Vol] 4.02 10*6/uL Low 4.2-5.4 [facility] Retic Panelon 05-03-2025 IM RET FRACTION 0.90 Low 3.00-15.90 [facility] Comment on above: Order Comment: MARIEL Angulo ADD ON Performed By: #### L 504.2610, L100.9950, L3100.1850 ####[facility] [address] [place], [address] IPF 4.4 Normal 1.0-7.9 [facility] Comment on above: Order Comment: PLEAS E ADD ON Result Comment: Low PLT + Low IPF suggest a bone marrow production disorderLow PLT + high IPF suggests peripheral destruction(e.g.ITP, TTP, HIT, DIC, autoimmune) or bone marrow recoveryTrending of serial IPF measurements is recommended whenevaluating for bone marrow responesValue above normal range indicates an increase in RBCcellular response from bone marrow. Performed By: #### L 504.2610, L100.9950, L3100.1850 ####[facility] [address] [place], [address] RET-HE 36.0 pg High 30-35 [facility] Comment on above: Order Comment: MARIEL E ADD ON Performed By: #### L 504.2610, L100.9950, L3100.1850 ####[facility] [address] [place], [address] Retic Count 0.45 Low 0.5-1.5 [facility] Comment on above: Order Comment: PLEBEATRIZ E ADD ON Performed By: #### L 504.2610, L100.9950, L3100.1850 ####[facility] [address] [place], [address] Reticulocyte hemoglobin equi valent (RET-He) measurementOrdered By: Delmis Corral on 05-03-2025 Hemoglobin (Reticulocytes) [Entitic mass] 36.0 pg High 30-35 [facility] Reticulocytes Auto (Bld) [#/ Vol]Ordered By: Delmis Corral on 05-03-2025 Reticulocytes/100 RBC (Bld) 0.45 % Low 0.5-1.5 [facility] Review by pathologistOrdered By: Imani Persaud on 05-03-2025 Pathologist review Bassam (Unsp spec) [Interp] March [facility] Serum creatinine measurement (mass/volume)Ordered By: Imani Persaud on 05-03-2025 Creatinine [Mass/Vol] 0.59 mg/dL Low 0.70-1.20 [facility] Serum globulin measurementOr dered By: Delmis Corral on 05-03-2025 Globulin (S) [Mass/Vol] 3.5 g/dL 2.2-4.2 [facility] Serum glucose measurement (m ass/volume)Ordered By: Imani Persaud on 05-03-2025 Glucose [Mass/Vol] 123 mg/dL High 70-99 [facility] Serum or plasma alanine del rio otransferase (ALT) measurementOrdered By: Demlis Corral on 05-03-2025 ALT [Catalytic activity/Vol] 44 U/L High <35 [facility] Serum or plasma albumin cass urement (mass/volume)Ordered By: Delmis Corral on 05-03-2025 Albumin [Mass/Vol] 3.5 g/dL 3.5-5.0 [facility] Serum or plasma alkaline tre sphatase measurementOrdered By: Delmis Corral on 05-03-2025 ALP [Catalytic activity/Vol] 97 U/L 35-104 [facility] Serum or plasma calcium cass urement (mass/volume)Ordered By: Imani Persaud on 05-03-2025 Calcium [Mass/Vol] 8.7 mg/dL 7.6-11.0 [facility] Serum or plasma urea nitroge n measurement (mass/volume)Ordered By: Imani Persaud on 05-03-2025 Urea nitrogen [Mass/Vol] 10 mg/dL 4-19 [facility] Sodium levelOrdered By: Jennifer Persaud on 05-03-2025 Sodium [Moles/Vol] 134 mmol/L 133-145 [facility] Squamous epithelial cells de tection in urine sediment by light microscopyOrdered By: Dlemis Corral on 05-03-2025 Epithelial cells.squamous LM Ql (Urine sed) 0-5 SEEN /hpf 5-10 [facility] Total proteinOrdered By: Vance Corral on 05-03-2025 Protein [Mass/Vol] 6.9 g/dL 5.9-8.4 [facility] Urinalysis, Completeon 05-03 BACTERIA RARE Normal None Seen [facility] Comment on above: Order Comment: COLOR OF URINE MAY AFFECT DIPSTICK RESULTS.FACILITY SECURITY OFFICER TO SPECIFY Performed By: #### L 400.0001 ####[facility] [address] [place], [address] EPI,SQUAMOUS 0-5 SEEN Normal 5-10 [facility] Comment on above: Order Comment: COLOR OF URINE MAY AFFECT DIPSTICK RESULTS.FACILITY SECURITY OFFICER TO SPECIFY Performed By: #### L 400.0001 ####[facility] [address] [place], [address] RBC > 100 SEEN Normal 0-5 [facility] Comment on above: Order Comment: COLOR OF URINE MAY AFFECT DIPSTICK RESULTS.FACILITY SECURITY OFFICER TO SPECIFY Performed By: #### L 400.0001 ####[facility] [address] [place], [address] Mucus Ql (Urine sed) 0 SEEN Normal [facility] Comment on above: Order Comment: COLOR OF URINE MAY AFFECT DIPSTICK RESULTS.FACILITY SECURITY OFFICER TO SPECIFY Performed By: #### L 400.0001 ####[facility] [address] [place], [address] WBC 0 SEEN Normal 0-5 [facility] Comment on above: Order Comment: COLOR OF URINE MAY AFFECT DIPSTICK RESULTS.FACILITY SECURITY OFFICER TO SPECIFY Performed By: #### L 400.0001 ####[facility] [address] [place], [address] Urine clarityOrdered By: Vance Corral on 05-03-2025 Clarity (U) Cloudy Clear [facility] Urine color determinationOrd ered By: Delmis Corral on 05-03-2025 Color (U) Mirna Yellow [facility] Urine glucose detectionOrder ed By: Delmis Corral on 05-03-2025 Glucose Ql (U) Normal mg/dl Normal [facility] Urine leukocyte esterase det ection by dipstickOrdered By: Delmis Corral on 05-03-2025 Leukocyte esterase Test strip Ql (U) 25 /ul High Negative [facility] Urine pHOrdered By: Delmis solomon on 05-03-2025 pH (U) 6.0 [pH] 5.0 - 8.0 [facility] Urine sediment bacteria coun t by microscopy (number/high power field)Ordered By: Delmis Corral on 05-03-2025 Bacteria LM.HPF (Urine sed) [#/Area] RARE /hpf None Seen [facility] Urine specific gravity measu rementOrdered By: Delmis Corral on 05-03-2025 Specific gravity (U) [Rel density] 1.010 1.002-1.030 [facility] Urine urobilinogen measureme ntOrdered By: Delmis Corral on 05-03-2025 Urobilinogen Ql (U) 12 mg/dl High Normal [facility] White blood cell (WBC) count Ordered By: Imani Persaud on 05-03-2025 WBC (Bld) [#/Vol] 0.5 10*3/uL Low 4.4-11.0 [facility] Comment on above: CRITICAL VALUE HOFFMAN D TO TRPHIBS95/19/25 1126 [address].RESULTS READ BACK BY SAME. White blood cell countOrdere d By: Delmis Corral on 05-03-2025 White blood cell count 0 SEEN /hpf 0-5 [facility] Urine Cultureon 04-30-2025 URC Mixed Gram Positive Organisms [place] Count 25,000-50,000 MIXC Mixed contaminants. Submit a new specimen if indicated. Normal [facility] Comment on above: Performed By: #### L 400.0001, M100.2200 ####[facility] [address] [place], [address] Absolute lymphocyte countOrd ered By: ED PROVIDER on 04-28-2025 Lymphocytes Auto (Unsp spec) [#/Vol] 0.75 10*3/uL Low 0.83-4.51 [facility] Absolute neutrophil countOrd ered By: ED PROVIDER on 04-28-2025 Neutrophils (Bld) [#/Vol] 3.5 10*3/uL 2.0-7.7 [facility] Activated partial thrombopla stin time (aPTT) in platelet poor plasma by coagulation aOrdered By: ED PROVIDER on 04-28-2025 aPTT Coag (PPP) [Time] 29.8 s 24.1-36.2 [facility] Anion gap in Serum or Plasma Ordered By: ED PROVIDER on 04-28-2025 Anion gap [Moles/Vol] 11 mmol/L 5-15 [facility] Automated lymphocyte count a s percentage of total leukocytesOrdered By: ED PROVIDER on 04-28-2025 Lymphocytes/100 WBC Auto (Unsp spec) 17.3 % Low 19-41 [facility] BUN/creatinine ratioOrdered By: ED PROVIDER on 04-28-2025 Urea nitrogen/Creatinine [Mass ratio] 18.8 mg/mg 10-20 [facility] Basophil percentageOrdered B y: ED PROVIDER on 04-28-2025 Basophils/100 WBC (Bld) 0.2 % 0-1 [facility] Bilirubin Test strip Ql (U)O rdered By: Girish Mcgarry on 04-28-2025 Bilirubin Ql (U) Negative Negative [facility] Bilirubin, totalOrdered By: ED PROVIDER on 04-28-2025 Bilirubin [Mass/Vol] 1.02 mg/dL 0.00-1.30 [facility] Blood cultureOrdered By: Rodrigo Mcgarry on 04-28-2025 Bacteria identified Cx Nom (Bld) No growth in 5 days. [facility] Blood cultureOrdered By: ED PROVIDER on 04-28-2025 Bacteria identified Cx Nom (Bld) No growth in 5 days. [facility] CBC W/Diff, Automatedon 04-15 RED CELL MORPH NORM C+C Normal NORM C C [facility] Comment on above: Order Comment: Comme nts: Place Priority inspector conveyor line CBC Tube Performed By: #### L 300.4310, L503.6005, L500.4050, M200.1000, L300.3900, L100.0100 ####[facility] [address] [place], [address] PLT EST MOD DEC Normal ADEQ [facility] Comment on above: Order Comment: Comme nts: Place Priority inspector conveyor line CBC Tube Performed By: #### L 300.4310, L503.6005, L500.4050, M200.1000, L300.3900, L100.0100 ####[facility] [address] [place], [address] Carbon dioxide, total [Moles /volume] in Central venous bloodOrdered By: ED PROVIDER on 04-28-2025 CO2 [Moles/Vol] 18.6 mmol/L Low 21.0-32.0 [facility] Chest PA and Lateralon 04-28 Chest PA and Lateral Normal [facility] Chloride assayOrdered By: ED PROVIDER on 04-28-2025 Chloride [Moles/Vol] 103 mmol/L 98-108 [facility] Comprehensive Metabolic Prof ilon 04-28-2025 Albumin [Mass/Vol] 3.4 g/dL Low 3.5-5.0 [facility] Comment on above: Performed By: #### L 300.4310, L503.6005, L500.4050, M200.1000, L300.3900, L100.0100 ####[facility] [address] [place], [address] Albumin/Globulin [Mass ratio] 1.1 {ratio} Normal 0.9-2.4 [facility] Comment on above: Performed By: #### L 300.4310, L503.6005, L500.4050, M200.1000, L300.3900, L100.0100 ####[facility] [address] [place], [address] ALK PHOS 93 U/L Normal 35-104 [facility] Comment on above: Performed By: #### L 300.4310, L503.6005, L500.4050, M200.1000, L300.3900, L100.0100 ####[facility] [address] [place], [address] ALT [Catalytic activity/Vol] 18 U/L Normal <=34 [facility] Comment on above: Performed By: #### L 300.4310, L503.6005, L500.4050, M200.1000, L300.3900, L100.0100 ####[facility] [address] [place], [address] AST [Catalytic activity/Vol] 21 U/L Normal <=31 [facility] Comment on above: Performed By: #### L 300.4310, L503.6005, L500.4050, M200.1000, L300.3900, L100.0100 ####[facility] [address] [place], [address] Bilirubin [Mass/Vol] 1.02 mg/dL Normal 0.00-1.30 [facility] Comment on above: Performed By: #### L 300.4310, L503.6005, L500.4050, M200.1000, L300.3900, L100.0100 ####[facility] [address] [place], [address] BUN/CRE 18.8 RATIO Normal 10-20 [facility] Comment on above: Performed By: #### L 300.4310, L503.6005, L500.4050, M200.1000, L300.3900, L100.0100 ####[facility] [address] [place], [address] Calcium [Mass/Vol] 8.4 mg/dL Normal 7.6-11.0 [facility] Comment on above: Performed By: #### L 300.4310, L503.6005, L500.4050, M200.1000, L300.3900, L100.0100 ####[facility] [address] [place], [address] Chloride [Moles/Vol] 103 mmol/L Normal 98-108 [facility] Comment on above: Performed By: #### L 300.4310, L503.6005, L500.4050, M200.1000, L300.3900, L100.0100 ####[facility] [address] [place], [address] CO2 [Moles/Vol] 18.6 mmol/L Low 21.0-32.0 [facility] Comment on above: Performed By: #### L 300.4310, L503.6005, L500.4050, M200.1000, L300.3900, L100.0100 ####[facility] [address] [place], [address] Creatinine [Mass/Vol] 0.57 mg/dL Low 0.70-1.20 [facility] Comment on above: Performed By: #### L 300.4310, L503.6005, L500.4050, M200.1000, L300.3900, L100.0100 ####[facility] [address] [place], [address] ECRCL 136.93 ml/min Normal 50-250 [facility] Comment on above: Performed By: #### L 300.4310, L503.6005, L500.4050, M200.1000, L300.3900, L100.0100 ####[facility] [address] [place], [address] GAP 11 Normal 5-15 [facility] Comment on above: Performed By: #### L 300.4310, L503.6005, L500.4050, M200.1000, L300.3900, L100.0100 ####[facility] [address] [place], [address] GFR/1.73 sq M.predicted among non-blacks MDRD (S/P/Bld) [Vol rate/Area] 108 mL/min/{1.73_m2} Normal >60 [facility] Comment on above: Result Comment: mL/m in/1.73m2 CKD-EPI Creatinine Equation (2020) Performed By: #### L 300.4310, L503.6005, L500.4050, M200.1000, L300.3900, L100.0100 ####[facility] [address] [place], [address] Globulin (S) [Mass/Vol] 3.2 g/dL Normal 2.2-4.2 [facility] Comment on above: Performed By: #### L 300.4310, L503.6005, L500.4050, M200.1000, L300.3900, L100.0100 ####[facility] [address] [place], [address] Glucose [Mass/Vol] 130 mg/dL High 70-99 [facility] Comment on above: Performed By: #### L 300.4310, L503.6005, L500.4050, M200.1000, L300.3900, L100.0100 ####[facility] [address] [place], [address] Potassium [Moles/Vol] 4.0 mmol/L Normal 3.3-5.1 [facility] Comment on above: Performed By: #### L 300.4310, L503.6005, L500.4050, M200.1000, L300.3900, L100.0100 ####[facility] [address] [place], [address] Sodium [Moles/Vol] 132 mmol/L Low 133-145 [facility] Comment on above: Performed By: #### L 300.4310, L503.6005, L500.4050, M200.1000, L300.3900, L100.0100 ####[facility] [address] [place], [address] T PROT 6.6 g/dL Normal 5.9-8.4 [facility] Comment on above: Performed By: #### L 300.4310, L503.6005, L500.4050, M200.1000, L300.3900, L100.0100 ####[facility] [address] [place], [place], [id number] Urea nitrogen [Mass/Vol] 11 mg/dL Normal 4-19 [facility] Comment on above: Performed By: #### L 300.4310, L503.6005, L500.4050, M200.1000, L300.3900, L100.0100 ####[facility] [address] [place], [place], [id number] Emergency Department Summary on 04-28-2025 Emergency Department Summary Normal [facility] Eosinophil percentageOrdered By: ED PROVIDER on 04-28-2025 Eosinophils/100 WBC (Bld) 0.2 % 0-5 [facility] Erythrocyte distribution wid th ratioOrdered By: ED PROVIDER on 04-28-2025 Erythrocyte distribution width (RBC) [Ratio] 13.0 % 11.6-14.6 [facility] Erythrocyte distribution wid th standard deviationOrdered By: ED PROVIDER on 04-28-2025 Erythrocyte distribution width (RBC) [Ratio] 39.2 fl 35.1-43.9 [facility] Erythrocyte morphology asses smentOrdered By: ED PROVIDER on 04-28-2025 RBC morphology finding Nom (Bld) NORM C+C NORMAL NORM C&C [facility] Glomerular filtration rate ( GFR) estimation/1.73 sq m using serum, plasma, or whole bOrdered By: ED PROVIDER on 04-28-2025 GFR/1.73 sq M.predicted among non-blacks MDRD (S/P/Bld) [Vol rate/Area] 108 mL/min/{1.73_m2} >60 [facility] Comment on above: mL/min/1.73m2 CKD-EP I Creatinine Equation (2020) Hematocrit Auto (Bld) [Volum e fraction]Ordered By: ED PROVIDER on 04-28-2025 Hematocrit (Bld) [Volume fraction] 37.8 % 37-47 [facility] Hemoglobin measurementOrdere d By: ED PROVIDER on 04-28-2025 Hemoglobin (Bld) [Mass/Vol] 13.1 g/dL 12.0-15.0 [facility] Immature granulocytes/100 WB C Auto (Bld)Ordered By: ED PROVIDER on 04-28-2025 Immature granulocytes/100 WBC (Bld) 0.500 % 0.0-0.9 [facility] Comment on above: IG% - Immature Granu locytes (promyelocytes, myelocytes and metamyelocytes) > 1% indicates that a LEFT SHIFT is Present. International normalized rat io (INR) calculationOrdered By: ED PROVIDER on 04-28-2025 INR Coag (Bld) [Relative time] 1.2 {INR} [facility] Ketones Test strip Ql (U)Ord ered By: Girish Mcgarry on 04-28-2025 Ketones Ql (U) Negative Negative [facility] Laboratory - Chemistry and C hemistry - challengeOrdered By: ED PROVIDER on 04-28-2025 AST [Catalytic activity/Vol] 21 U/L <32 [facility] Lactic Acidon 04-28-2025 Lactate [Moles/Vol] mmol/L Normal 0.0-2.0 [facility] Comment on above: Order Comment: Y Performed By: #### L 300.4310, L503.6005, L500.4050, M200.1000, L300.3900, L100.0100 ####[facility] [address] [place], [address] Lactic acid measurementOrder ed By: Girish Mcgarry on 04-28-2025 Lactate [Moles/Vol] mmol/L 0.0-2.0 [facility] MCV (mean corpuscular volume ) determinationOrdered By: ED PROVIDER on 04-28-2025 MCV (RBC) [Entitic vol] 83.3 fL 81-99 [facility] Magnesiumon 04-28-2025 Magnesium [Mass/Vol] 1.8 mg/dL Normal 1.5-2.2 [facility] Comment on above: Performed By: #### L 501.5200, L501.2300 ####[facility] [address] [place], [address] Magnesium measurement (mass/ volume)Ordered By: Girish Mcgarry on 04-28-2025 Magnesium (Unsp spec) [Mass/Vol] 1.8 mg/dL 1.5-2.2 [facility] Mean corpuscular hemoglobin (MCH) determinationOrdered By: ED PROVIDER on 04-28-2025 MCH (RBC) [Entitic mass] 28.9 pg 27.0-32.0 [facility] Mean corpuscular hemoglobin concentration (MCHC) determinationOrdered By: ED PROVIDER on 04-28-2025 MCHC (RBC) [Mass/Vol] 34.7 g/dL 32-36 [facility] Mean platelet volume determi nationOrdered By: ED PROVIDER on 04-28-2025 Platelet mean volume (Bld) [Entitic vol] 10.6 fL 6.2-12.0 [facility] Microscopic analysis of urin e for red blood cells (RBC)Ordered By: Girish Mcgarry on 04-28-2025 Microscopic analysis of urine for red blood cells (RBC) > 100 SEEN /hpf 0-5 [facility] Monocyte percentageOrdered B y: ED PROVIDER on 04-28-2025 Monocytes/100 WBC (Bld) 0.5 % 0-10 [facility] Mucus LM Ql (Urine sed)Order ed By: Girish Mcgarry on 04-28-2025 Mucus Ql (Urine sed) 3+ /hpf [facility] Neutrophil percentageOrdered By: ED PROVIDER on 04-28-2025 Neutrophils/100 WBC (Bld) 81.3 % High 47-70 [facility] Nitrite Test strip Ql (U)Ord ered By: Girish Mcgarry on 04-28-2025 Nitrite Ql (U) Negative Negative [facility] Nucleated red blood cell per centageOrdered By: ED PROVIDER on 04-28-2025 Nucleated RBC/100 WBC (Bld) [Ratio] 0 % 0-5 [facility] Partial Thromboplast Timeon 04-28-2025 aPTT Coag (Bld) [Time] 29.8 s Normal 24.1-36.2 [facility] Comment on above: Performed By: #### L 300.1210, L503.6005, L500.4050, M200.1000, L300.3900, L100.0100 ####[facility] [address] [place], [address] Phosphoruson 04-28-2025 Phosphate [Mass/Vol] 2.1 mg/dL Low 2.7-4.5 [facility] Comment on above: Performed By: #### L 501.5200, L501.2300 ####[facility] [address] [place], [address] Platelet countOrdered By: ED PROVIDER on 04-28-2025 Platelets (Bld) [#/Vol] 67 10*3/uL Low 150-450 [facility] Platelet estimateOrdered By: ED PROVIDER on 04-28-2025 Platelets LM Ql (Bld) MOD DEC ADEQ [facility] Potassium measurement (mass/ volume)Ordered By: ED PROVIDER on 04-28-2025 Potassium (Unsp spec) [Mass/Vol] 4.0 mmol/L 3.3-5.1 [facility] Protein Test strip Ql (U)Ord ered By: Girish Mcgarry on 04-28-2025 Protein Ql (U) 100 mg/dl High Negative [facility] Prothrombin Time w/INRon INR Coag (PPP) [Relative time] 1.2 {INR} Normal [facility] Comment on above: Performed By: #### L 300.4310, L503.6005, L500.4050, M200.1000, L300.3900, L100.0100 ####[facility] [address] [place], [address] PT Coag (PPP) [Time] 15.3 s High 11.7-14.9 [facility] Comment on above: Performed By: #### L 300.4310, L503.6005, L500.4050, M200.1000, L300.3900, L100.0100 ####[facility] [address] [place], [address] Prothrombin timeOrdered By: ED PROVIDER on 04-28-2025 PT Coag (PPP) [Time] 15.3 s High 11.7-14.9 [facility] RBC Auto (Bld) [#/Vol]Ordere d By: ED PROVIDER on 04-28-2025 RBC (Bld) [#/Vol] 4.54 10*6/uL 4.2-5.4 [facility] Serum creatinine measurement (mass/volume)Ordered By: ED PROVIDER on 04-28-2025 Creatinine [Mass/Vol] 0.57 mg/dL Low 0.70-1.20 [facility] Serum globulin measurementOr dered By: ED PROVIDER on 04-28-2025 Globulin (S) [Mass/Vol] 3.2 g/dL 2.2-4.2 [facility] Serum glucose measurement (m ass/volume)Ordered By: ED PROVIDER on 04-28-2025 Glucose [Mass/Vol] 130 mg/dL High 70-99 [facility] Serum or plasma alanine del rio otransferase (ALT) measurementOrdered By: ED PROVIDER on 04-28-2025 ALT [Catalytic activity/Vol] 18 U/L <35 [facility] Serum or plasma albumin cass urement (mass/volume)Ordered By: ED PROVIDER on 04-28-2025 Albumin [Mass/Vol] 3.4 g/dL Low 3.5-5.0 [facility] Serum or plasma albumin/glob ulin mass ratioOrdered By: ED PROVIDER on 04-28-2025 Albumin/Globulin [Mass ratio] 1.1 {ratio} 0.9-2.4 [facility] Serum or plasma alkaline tre sphatase measurementOrdered By: ED PROVIDER on 04-28-2025 ALP [Catalytic activity/Vol] 93 U/L 35-104 [facility] Serum or plasma calcium cass urement (mass/volume)Ordered By: ED PROVIDER on 04-28-2025 Calcium [Mass/Vol] 8.4 mg/dL 7.6-11.0 [facility] Serum or plasma urea nitroge n measurement (mass/volume)Ordered By: ED PROVIDER on 04-28-2025 Urea nitrogen [Mass/Vol] 11 mg/dL 4-19 [facility] Sodium levelOrdered By: ED P VINITA on 04-28-2025 Sodium [Moles/Vol] 132 mmol/L Low 133-145 [facility] Squamous epithelial cells de tection in urine sediment by light microscopyOrdered By: Girish Mcgarry on 04-28-2025 Epithelial cells.squamous LM Ql (Urine sed) 5-10 SEEN /hpf 5- [facility] Total proteinOrdered By: ED PROVIDER on 04-28-2025 Protein [Mass/Vol] 6.6 g/dL 5.9-8.4 [facility] Urinalysis, Completeon 04-28 BACTERIA 2+ /hpf Normal None Seen [facility] Comment on above: Order Comment: COLOR OF URINE MAY AFFECT DIPSTICK RESULTS.CLEAN CATCH Performed By: #### L 400.0001, ####[facility] [address] [place], [address] EPI,SQUAMOUS 5-10 SEEN Normal 5-10 [facility] Comment on above: Order Comment: COLOR OF URINE MAY AFFECT DIPSTICK RESULTS.CLEAN CATCH Performed By: #### L 400.0001, ####[facility] [address] [place], [address] Mucus Ql (Urine sed) 3+ /hpf Normal [facility] Comment on above: Order Comment: COLOR OF URINE MAY AFFECT DIPSTICK RESULTS.CLEAN CATCH Performed By: #### L 400.0001, ####[facility] [address] [place], [address] RBC > 100 SEEN Normal 0-5 [facility] Comment on above: Order Comment: COLOR OF URINE MAY AFFECT DIPSTICK RESULTS.CLEAN CATCH Performed By: #### L 400.0001, ####[facility] [address] [place], [address] WBC >100 SEEN Normal 0-5 [facility] Comment on above: Order Comment: COLOR OF URINE MAY AFFECT DIPSTICK RESULTS.CLEAN CATCH Performed By: #### L 400.0001, ####[facility] [address] [place], [address] BILIRUBIN URINE Negative Normal Negative [facility] Comment on above: Order Comment: COLOR OF URINE MAY AFFECT DIPSTICK RESULTS.CLEAN CATCH Performed By: #### L 400.0001, .2199 ####[facility] [address] [place], [address] Clarity (U) Sl. Cloudy Normal Clear [facility] Comment on above: Order Comment: COLOR OF URINE MAY AFFECT DIPSTICK RESULTS.CLEAN CATCH Performed By: #### L 400.0001, ####[facility] [address] [place], [address] Color (U) Mirna Normal Yellow [facility] Comment on above: Order Comment: COLOR OF URINE MAY AFFECT DIPSTICK RESULTS.CLEAN CATCH Performed By: #### L 400.0001, ####[facility] [address] [place], [address] GLUCOSE, UR Normal Normal Normal [facility] Comment on above: Order Comment: COLOR OF URINE MAY AFFECT DIPSTICK RESULTS.CLEAN CATCH Performed By: #### L 400.0001, ####[facility] [address] [place], [address] KETONE UR Negative Normal Negative [facility] Comment on above: Order Comment: COLOR OF URINE MAY AFFECT DIPSTICK RESULTS.CLEAN CATCH Performed By: #### L 400.0001, ####[facility] [address] [place], [address] LEUK ESTERASE 100 /ul Abnormal Negative [facility] Comment on above: Order Comment: COLOR OF URINE MAY AFFECT DIPSTICK RESULTS.CLEAN CATCH Performed By: #### L 400.0001, ####[facility] [address] [place], [address] Nitrite Ql (U) Negative Normal Negative [facility] Comment on above: Order Comment: COLOR OF URINE MAY AFFECT DIPSTICK RESULTS.CLEAN CATCH Performed By: #### L 400.0001, .2199 ####[facility] [address] [place], [address] OCCULT BLOOD-UR 250 /ul Abnormal Negative [facility] Comment on above: Order Comment: COLOR OF URINE MAY AFFECT DIPSTICK RESULTS.CLEAN CATCH Performed By: #### L 400.0001, .2199 ####[facility] [address] [place], [address] pH UR 7.0 Normal 5.0 - 8.0 [facility] Comment on above: Order Comment: COLOR OF URINE MAY AFFECT DIPSTICK RESULTS.CLEAN CATCH Performed By: #### L 400.0001, ####[facility] [address] [place], [address] PROT DIPSTX 100 mg/dl Abnormal Negative [facility] Comment on above: Order Comment: COLOR OF URINE MAY AFFECT DIPSTICK RESULTS.CLEAN CATCH Performed By: #### L 400.0001, ####[facility] [address] [place], [address] SP.GR. DIPSTX 1.010 Normal 1.002-1.030 [facility] Comment on above: Order Comment: COLOR OF URINE MAY AFFECT DIPSTICK RESULTS.CLEAN CATCH Performed By: #### L 400.0001, ####[facility] [address] [place], [address] UROBILI 1 mg/dl Abnormal Normal [facility] Comment on above: Order Comment: COLOR OF URINE MAY AFFECT DIPSTICK RESULTS.CLEAN CATCH Performed By: #### L 400.0001, .2199 ####[facility] [address] [place], [address] Urine clarityOrdered By: Rodrigo Mcgarry on 04-28-2025 Clarity (U) Sl. Cloudy Clear [facility] Urine color determinationOrd ered By: Girish Mcgarry on 04-28-2025 Color (U) Mirna Yellow [facility] Urine cultureOrdered By: Rodrigo Mcgarry on 04-28-2025 Bacteria identified Cx Nom (U) Positive Abnormal [facility] Urine glucose detectionOrder ed By: Girish Mcgarry on 04-28-2025 Glucose Ql (U) Normal mg/dl Normal [facility] Urine leukocyte esterase det ection by dipstickOrdered By: Girish Mcgarry on 04-28-2025 Leukocyte esterase Test strip Ql (U) 100 /ul High Negative [facility] Urine pHOrdered By: Girish betancourt on 04-28-2025 pH (U) 7.0 [pH] 5.0 - 8.0 [facility] Urine sediment bacteria coun t by microscopy (number/high power field)Ordered By: Girish Mcgarry on 04-28-2025 Bacteria LM.HPF (Urine sed) [#/Area] 2 /[HPF] None Seen [facility] Urine specific gravity measu rementOrdered By: Girish Mcgarry on 04-28-2025 Specific gravity (U) [Rel density] 1.010 1.002-1.030 [facility] Urine urobilinogen measureme ntOrdered By: Girish Mcgarry on 04-28-2025 Urobilinogen Ql (U) 1 mg/dl High Normal [facility] White blood cell (WBC) count Ordered By: ED PROVIDER on 04-28-2025 WBC (Bld) [#/Vol] 4.3 10*3/uL Low 4.4-11.0 [facility] White blood cell countOrdere d By: Girish Mcgarry on 04-28-2025 White blood cell count >100 SEEN /hpf 0-5 [facility] Absolute lymphocyte countOrd ered By: Imani Persaud on 04-26-2025 Lymphocytes Auto (Unsp spec) [#/Vol] 1.16 10*3/uL 0.83-4.51 [facility] Absolute neutrophil countOrd ered By: Imani Persaud on 04-26-2025 Neutrophils (Bld) [#/Vol] 3.5 10*3/uL 2.0-7.7 [facility] Anion gap in Serum or Plasma Ordered By: Imani Persaud on 04-26-2025 Anion gap [Moles/Vol] 13 mmol/L 5- [facility] Automated lymphocyte count a s percentage of total leukocytesOrdered By: [facility] Persaud on 04-26-2025 Lymphocytes/100 WBC Auto (Unsp spec) 24.1 % - [facility] BUN/creatinine ratioOrdered By: [facility] Cori on 04-26-2025 Urea nitrogen/Creatinine [Mass ratio] 15.3 mg/mg 10- [facility] Basophil percentageOrdered B y: Imani Persaud on 04-26-2025 Basophils/100 WBC (Bld) 0.2 % 0- [facility] Bilirubin, totalOrdered By: [facility] Persaud on 04-26-2025 Bilirubin [Mass/Vol] 0.30 mg/dL 0.00-1.30 [facility] CBC W/Diff, Automatedon 04-15 Absolute Lymph 1.16 X10 3/uL Normal 0.83-4.51 [facility] Comment on above: Performed By: #### L 100.0100, L500.4050, L501.5200 ####[facility] [address] [place], [address] Absolute Neut 3.5 X10 3/uL Normal 2.0-7.7 [facility] Comment on above: Performed By: #### L 100.0100, L500.4050, L501.5200 ####[facility] [address] [place], [address] Basophils/100 WBC (Bld) 0.2 % Normal 0-1 [facility] Comment on above: Performed By: #### L 100.0100, L500.4050, L501.5200 ####[facility] [address] [place], [address] Eosinophils/100 WBC (Bld) 0.2 % Normal 0-5 [facility] Comment on above: Performed By: #### L 100.0100, L500.4050, L501.5200 ####[facility] [address] [place], [address] Erythrocyte distribution width (RBC) [Ratio] 12.8 % Normal 11.6-14.6 [facility] Comment on above: Performed By: #### L 100.0100, L500.4050, L501.5200 ####[facility] [address] [place], [address] Hematocrit (Bld) [Volume fraction] 38.3 % Normal 37-47 [facility] Comment on above: Performed By: #### L 100.0100, L500.4050, L501.5200 ####[facility] [address] [place], [address] Hemoglobin (Bld) [Mass/Vol] 13.4 g/dL Normal 12.0-15.0 [facility] Comment on above: Performed By: #### L 100.0100, L500.4050, L501.5200 ####[facility] [address] [place], [address] IG% 0.200 Normal 0.0-0.9 [facility] Comment on above: Result Comment: IG% - Immature Granulocytes (promyelocytes, myelocytes andmetamyelocytes) > 1% indicates that a LEFT SHIFT is Present. Performed By: #### L 100.0100, L500.4050, L501.5200 ####[facility] [address] [place], [address] Lymphocytes/100 WBC (Bld) 24.1 % Normal 19-41 [facility] Comment on above: Performed By: #### L 100.0100, L500.4050, L501.5200 ####[facility] [address] [place], [address] MCH (RBC) [Entitic mass] 29.4 pg Normal 27.0-32.0 [facility] Comment on above: Performed By: #### L 100.0100, L500.4050, L501.5200 ####[facility] [address] [place], [address] MCHC (RBC) [Mass/Vol] 35.0 g/dL Normal 32-36 [facility] Comment on above: Performed By: #### L 100.0100, L500.4050, L501.5200 ####[facility] [address] [place], [address] MCV (RBC) [Entitic vol] 84.0 fL Normal 81-99 [facility] Comment on above: Performed By: #### L 100.0100, L500.4050, L501.5200 ####[facility] [address] [place], [address] Monocytes/100 WBC (Bld) 2.5 % Normal 0-10 [facility] Comment on above: Performed By: #### L 100.0100, L500.4050, L501.5200 ####[facility] [address] [place], [address] Neutrophils/100 WBC (Bld) 72.8 % High 47-70 [facility] Comment on above: Performed By: #### L 100.0100, L500.4050, L501.5200 ####[facility] [address] [place], [address] Nucleated RBC (Bld) [#/Vol] 0 10*3/uL Normal 0-5 [facility] Comment on above: Performed By: #### L 100.0100, L500.4050, L501.5200 ####[facility] [address] [place], [address] Platelet mean volume (Bld) [Entitic vol] 10.0 fL Normal 6.2-12.0 [facility] Comment on above: Performed By: #### L 100.0100, L500.4050, L501.5200 ####[facility] [address] [place], [address] Platelets (Bld) [#/Vol] 126 10*3/uL Low 150-450 [facility] Comment on above: Performed By: #### L 100.0100, L500.4050, L501.5200 ####[facility] [address] [place], [address] RBC (Bld) [#/Vol] 4.56 10*6/uL Normal 4.2-5.4 [facility] Comment on above: Performed By: #### L 100.0100, L500.4050, L501.5200 ####[facility] [address] [place], [address] RDW SD 39.1 fl Normal 35.1-43.9 [facility] Comment on above: Performed By: #### L 100.0100, L500.4050, L501.5200 ####[facility] [address] [place], [address] WBC (Bld) [#/Vol] 4.8 10*3/uL Normal 4.4-11.0 [facility] Comment on above: Performed By: #### L 100.0100, L500.4050, L501.5200 ####[facility] [address] [place], [address] Absolute Neut Normal 2.0-7.7 [facility] Comment on above: Result Comment: DUPL ICATE TEST Performed By: #### L 100.0100, L501.2300 ####[facility] [address] [place], [address] HCT Normal 37-47 [facility] Comment on above: Result Comment: DUPL ICATE TEST Performed By: #### L 100.0100, L501.2300 ####[facility] [address] [place], [address] HGB Normal 12.0-15.0 [facility] [facility] Comment on above: Result Comment: DUPL ICATE TEST Performed By: #### L 100.0100, L501.2300 ####[facility] [address] [place], [address] MCH Normal 27.0-32.0 [facility] Comment on above: Result Comment: DUPL ICATE TEST Performed By: #### L 100.0100, L501.2300 ####[facility] [address] [place], [address] MCHC Normal 32-36 [facility] Comment on above: Result Comment: DUPL ICATE TEST Performed By: #### L 100.0100, L501.2300 ####[facility] [address] [place], [address] MCV Normal 81-99 [facility] Comment on above: Result Comment: DUPL ICATE TEST Performed By: #### L 100.0100, L501.2300 ####[facility] [address] [place], [address] NEUT% Normal 47-70 [facility] Comment on above: Result Comment: DUPL ICATE TEST Performed By: #### L 100.0100, L501.2300 ####[facility] [address] [place], [address] PLT Normal 150-450 [facility] Comment on above: Result Comment: DUPL ICATE TEST Performed By: #### L 100.0100, L501.2300 ####[facility] [address] [place], [address] RBC Normal 4.2-5.4 [facility] Comment on above: Result Comment: DUPL ICATE TEST Performed By: #### L 100.0100, L501.2300 ####[facility] [address] [place], [address] RDW CV Normal 11.6-14.6 [facility] Comment on above: Result Comment: DUPL ICATE TEST Performed By: #### L 100.0100, L501.2300 ####[facility] [address] [place], [address] RDW SD Normal 35.1-43.9 [facility] Comment on above: Result Comment: DUPL ICATE TEST Performed By: #### L 100.0100, L501.2300 ####[facility] [address] [place], [address] WBC Normal 4.4-11.0 [facility] Comment on above: Result Comment: DUPL ICATE TEST Performed By: #### L 100.0100, L501.2300 ####[facility] [address] [place], [address] Carbon dioxide, total [Moles /volume] in Central venous bloodOrdered By: Imani Persaud on 04-26-2025 CO2 [Moles/Vol] 20.2 mmol/L Low 21.0-32.0 [facility] Chloride assayOrdered By: Jonatan Persaud on 04-26-2025 Chloride [Moles/Vol] 104 mmol/L 98-108 [facility] [place] Comprehensive Metabolic Prof ilon 04-26-2025 Albumin [Mass/Vol] 3.9 g/dL Normal 3.5-5.0 [facility] Comment on above: Performed By: #### L 100.0100, L500.4050, L501.5200 ####[facility] [address] [place], [address] Albumin/Globulin [Mass ratio] 1.1 {ratio} Normal 0.9-2.4 [facility] Comment on above: Performed By: #### L 100.0100, L500.4050, L501.5200 ####[facility] [address] [place], [address] ALK PHOS 108 U/L High 35-104 [facility] Comment on above: Performed By: #### L 100.0100, L500.4050, L501.5200 ####[facility] [address] [place], [address] ALT [Catalytic activity/Vol] 14 U/L Normal <=34 [facility] Comment on above: Performed By: #### L 100.0100, L500.4050, L501.5200 ####[facility] [address] [place], [address] AST [Catalytic activity/Vol] 13 U/L Normal <=31 [facility] Comment on above: Performed By: #### L 100.0100, L500.4050, L501.5200 ####[facility] [address] [place], [address] Bilirubin [Mass/Vol] 0.30 mg/dL Normal 0.00-1.30 [facility] [place] Comment on above: Performed By: #### L 100.0100, L500.4050, L501.5200 ####[facility] [address] [place], [address] BUN/CRE 15.3 RATIO Normal 10-20 [facility] Comment on above: Performed By: #### L 100.0100, L500.4050, L501.5200 ####[facility] [address] [place], [address] Calcium [Mass/Vol] 9.8 mg/dL Normal 7.6-11.0 [facility] Comment on above: Performed By: #### L 100.0100, L500.4050, L501.5200 ####[facility] [address] [place], [address] Chloride [Moles/Vol] 104 mmol/L Normal 98-108 [facility] [place] Comment on above: Performed By: #### L 100.0100, L500.4050, L501.5200 ####[facility] [address] [place], [address] CO2 [Moles/Vol] 20.2 mmol/L Low 21.0-32.0 [facility] Comment on above: Performed By: #### L 100.0100, L500.4050, L501.5200 ####[facility] [address] [place], [address] Creatinine [Mass/Vol] 0.57 mg/dL Low 0.70-1.20 [facility] Comment on above: Performed By: #### L 100.0100, L500.4050, L501.5200 ####[facility] [address] [place], [address] ECRCL 137.98 ml/min Normal 50-250 [facility] Comment on above: Performed By: #### L 100.0100, L500.4050, L501.5200 ####[facility] [address] [place], [address] GAP 13 Normal 5-15 [facility] Comment on above: Performed By: #### L 100.0100, L500.4050, L501.5200 ####[facility] [address] [place], [address] GFR/1.73 sq M.predicted among non-blacks MDRD (S/P/Bld) [Vol rate/Area] 108 mL/min/{1.73_m2} Normal >60 [facility] Comment on above: Result Comment: mL/m in/1.73m2 CKD-EPI Creatinine Equation (2020) Performed By: #### L 100.0100, L500.4050, L501.5200 ####[facility] [address] [place], [address] Globulin (S) [Mass/Vol] 3.4 g/dL Normal 2.2-4.2 [facility] Comment on above: Performed By: #### L 100.0100, L500.4050, L501.5200 ####[facility] [address] [place], [address] Glucose [Mass/Vol] 209 mg/dL High 70-99 [facility] Comment on above: Performed By: #### L 100.0100, L500.4050, L501.5200 ####[facility] [address] [place], [address] Potassium [Moles/Vol] 3.8 mmol/L Normal 3.3-5.1 [facility] Comment on above: Performed By: #### L 100.0100, L500.4050, L501.5200 ####[facility] [address] [place], [address] Sodium [Moles/Vol] 136 mmol/L Normal 133-145 [facility] Comment on above: Performed By: #### L 100.0100, L500.4050, L501.5200 ####[facility] [address] [place], [address] T PROT 7.3 g/dL Normal 5.9-8.4 [facility] Comment on above: Performed By: #### L 100.0100, L500.4050, L501.5200 ####[facility] [address] [place], [address] Urea nitrogen [Mass/Vol] 9 mg/dL Normal 4-19 [facility] Comment on above: Performed By: #### L 100.0100, L500.4050, L501.5200 ####[facility] [address] [place], [address] Eosinophil percentageOrdered By: Imani Persaud on 04-26-2025 Eosinophils/100 WBC (Bld) 0.2 % 0-5 [facility] Erythrocyte distribution wid th ratioOrdered By: Imani Persaud on 04-26-2025 Erythrocyte distribution width (RBC) [Ratio] 12.8 % 11.6-14.6 [facility] Erythrocyte distribution wid th standard deviationOrdered By: Imani Persaud on 04-26-2025 Erythrocyte distribution width (RBC) [Ratio] 39.1 fl 35.1-43.9 [facility] Glomerular filtration rate ( GFR) estimation/1.73 sq m using serum, plasma, or whole bOrdered By: Imani Persaud on 04-26-2025 GFR/1.73 sq M.predicted among non-blacks MDRD (S/P/Bld) [Vol rate/Area] 108 mL/min/{1.73_m2} >60 [facility] Comment on above: mL/min/1.73m2 CKD-EP I Creatinine Equation (2020) Hematocrit Auto (Bld) [Volum e fraction]Ordered By: Imani Persaud on 04-26-2025 Hematocrit (Bld) [Volume fraction] 38.3 % 37-47 [facility] Hemoglobin measurementOrdere d By: Imani Persaud on 04-26-2025 Hemoglobin (Bld) [Mass/Vol] 13.4 g/dL 12.0-15.0 [facility] Immature granulocytes/100 WB C Auto (Bld)Ordered By: Imani Persaud on 04-26-2025 Immature granulocytes/100 WBC (Bld) 0.200 % 0.0-0.9 [facility] Comment on above: IG% - Immature Granu locytes (promyelocytes, myelocytes and metamyelocytes) > 1% indicates that a LEFT SHIFT is Present. Laboratory - Chemistry and C hemistry - challengeOrdered By: Imani Persaud on 04-26-2025 AST [Catalytic activity/Vol] 13 U/L <32 [facility] MCV (mean corpuscular volume ) determinationOrdered By: Imani Persaud on 04-26-2025 MCV (RBC) [Entitic vol] 84.0 fL 81-99 [facility] Magnesiumon 04-26-2025 Magnesium [Mass/Vol] 2.0 mg/dL Normal 1.5-2.2 [facility] [place] Comment on above: Performed By: #### L 100.0100, L500.4050, L501.5200 ####[facility] [address] [place], [address] Magnesium measurement (mass/ volume)Ordered By: Imani Persaud on 04-26-2025 Magnesium (Unsp spec) [Mass/Vol] 2.0 mg/dL 1.5-2.2 [facility] Mean corpuscular hemoglobin (MCH) determinationOrdered By: Imani Persaud on 04-26-2025 MCH (RBC) [Entitic mass] 29.4 pg 27.0-32.0 [facility] Mean corpuscular hemoglobin concentration (MCHC) determinationOrdered By: Imani Persaud on 04-26-2025 MCHC (RBC) [Mass/Vol] 35.0 g/dL 32-36 [facility] Mean platelet volume determi nationOrdered By: Imani Persaud on 04-26-2025 Platelet mean volume (Bld) [Entitic vol] 10.0 fL 6.2-12.0 [facility] Monocyte percentageOrdered B y: Imani Persaud on 04-26-2025 Monocytes/100 WBC (Bld) 2.5 % 0-10 [facility] Neutrophil percentageOrdered By: [facility] Persaud on 04-26-2025 Neutrophils/100 WBC (Bld) 72.8 % High 47-70 [facility] Nucleated red blood cell per centageOrdered By: Imani Persaud on 04-26-2025 Nucleated RBC/100 WBC (Bld) [Ratio] 0 % 0-5 [facility] Oncology Visit Reporton 04-15 Oncology Visit Report Normal [facility] Phosphoruson 04-26-2025 Phosphate [Mass/Vol] 2.4 mg/dL Low 2.7-4.5 [facility] [place] Comment on above: Performed By: #### L 100.0100, L501.2300 ####[facility] [address] [place], [address] Platelet countOrdered By: Jonatan Persaud on 04-26-2025 Platelets (Bld) [#/Vol] 126 10*3/uL Low 150-450 [facility] Potassium measurement (mass/ volume)Ordered By: Imani Persaud on 04-26-2025 Potassium (Unsp spec) [Mass/Vol] 3.8 mmol/L 3.3-5.1 [facility] RBC Auto (Bld) [#/Vol]Ordere d By: Imani Persaud on 04-26-2025 RBC (Bld) [#/Vol] 4.56 10*6/uL 4.2-5.4 [facility] Serum creatinine measurement (mass/volume)Ordered By: Imani Persaud on 04-26-2025 Creatinine [Mass/Vol] 0.57 mg/dL Low 0.70-1.20 [facility] Serum globulin measurementOr dered By: Imani Persaud on 04-26-2025 Globulin (S) [Mass/Vol] 3.4 g/dL 2.2-4.2 [facility] Serum glucose measurement (m ass/volume)Ordered By: Imani Persaud on 04-26-2025 Glucose [Mass/Vol] 209 mg/dL High 70-99 [facility] Serum or plasma alanine del rio otransferase (ALT) measurementOrdered By: Imani Persaud on 04-26-2025 ALT [Catalytic activity/Vol] 14 U/L <35 [facility] Serum or plasma albumin cass urement (mass/volume)Ordered By: Imani Persaud on 04-26-2025 Albumin [Mass/Vol] 3.9 g/dL 3.5-5.0 [facility] Serum or plasma albumin/glob ulin mass ratioOrdered By: Imani Persaud on 04-26-2025 Albumin/Globulin [Mass ratio] 1.1 {ratio} 0.9-2.4 [facility] Serum or plasma alkaline tre sphatase measurementOrdered By: Imani Persaud on 04-26-2025 ALP [Catalytic activity/Vol] 108 U/L High 35-104 [facility] Serum or plasma calcium cass urement (mass/volume)Ordered By: Imani Persaud on 04-26-2025 Calcium [Mass/Vol] 9.8 mg/dL 7.6-11.0 [facility] Serum or plasma urea nitroge n measurement (mass/volume)Ordered By: Imani Persaud on 04-26-2025 Urea nitrogen [Mass/Vol] 9 mg/dL 4-19 [facility] Sodium levelOrdered By: Jennifer Persaud on 04-26-2025 Sodium [Moles/Vol] 136 mmol/L 133-145 [facility] Total proteinOrdered By: Lonnie Persaud on 04-26-2025 Protein [Mass/Vol] 7.3 g/dL 5.9-8.4 [facility] White blood cell (WBC) count Ordered By: Imani Persaud on 04-26-2025 WBC (Bld) [#/Vol] 4.8 10*3/uL 4.4-11.0 [facility] Absolute lymphocyte countOrd ered By: Imani Persaud on 04-19-2025 Lymphocytes Auto (Unsp spec) [#/Vol] 1.21 10*3/uL 0.83-4.51 [facility] Absolute neutrophil countOrd ered By: Imani Persaud on 04-19-2025 Neutrophils (Bld) [#/Vol] 7.4 10*3/uL 2.0-7.7 [facility] Anion gap in Serum or Plasma Ordered By: Imani Persaud on 04-19-2025 Anion gap [Moles/Vol] 14 mmol/L 5-15 [facility] Automated lymphocyte count a s percentage of total leukocytesOrdered By: Imani Persaud on 04-19-2025 Lymphocytes/100 WBC Auto (Unsp spec) 12.7 % Low 19-41 [facility] BUN/creatinine ratioOrdered By: Imani Persaud on 04-19-2025 Urea nitrogen/Creatinine [Mass ratio] 19.6 mg/mg 10-20 [facility] Basophil percentageOrdered B y: Imani Persaud on 04-19-2025 Basophils/100 WBC (Bld) 0.3 % 0-1 [facility] Bilirubin, totalOrdered By: Imani Persaud on 04-19-2025 Bilirubin [Mass/Vol] 0.33 mg/dL 0.00-1.30 [facility] [place] CBC W/Diff, Automatedon Absolute Lymph 1.21 X10 3/uL Normal 0.83-4.51 [facility] Comment on above: Performed By: #### L 501.5200, L500.4050, L100.0100 ####[facility] [address] [place], [address] Absolute Neut 7.4 X10 3/uL Normal 2.0-7.7 [facility] Comment on above: Performed By: #### L 501.5200, L500.4050, L100.0100 ####[facility] [address] [place], [address] Basophils/100 WBC (Bld) 0.3 % Normal 0-1 [facility] Comment on above: Performed By: #### L 501.5200, L500.4050, L100.0100 ####[facility] [address] [place], [address] Eosinophils/100 WBC (Bld) 0.2 % Normal 0-5 [facility] Comment on above: Performed By: #### L 501.5200, L500.4050, L100.0100 ####[facility] [address] [place], [address] Erythrocyte distribution width (RBC) [Ratio] 13.8 % Normal 11.6-14.6 [facility] Comment on above: Performed By: #### L 501.5200, L500.4050, L100.0100 ####[facility] [address] [place], [address] Hematocrit (Bld) [Volume fraction] 42.9 % Normal 37-47 [facility] Comment on above: Performed By: #### L 501.5200, L500.4050, L100.0100 ####[facility] [address] [place], [address] Hemoglobin (Bld) [Mass/Vol] 14.6 g/dL Normal 12.0-15.0 [facility] Comment on above: Performed By: #### L 501.5200, L500.4050, L100.0100 ####[facility] [address] [place], [address] IG% 0.500 Normal 0.0-0.9 [facility] Comment on above: Result Comment: IG% - Immature Granulocytes (promyelocytes, myelocytes andmetamyelocytes) > 1% indicates that a LEFT SHIFT is Present. Performed By: #### L 501.5200, L500.4050, L100.0100 ####[facility] [address] [place], [address] Lymphocytes/100 WBC (Bld) 12.7 % Low 19-41 [facility] Comment on above: Performed By: #### L 501.5200, L500.4050, L100.0100 ####[facility] [address] [place], [address] MCH (RBC) [Entitic mass] 29.1 pg Normal 27.0-32.0 [facility] Comment on above: Performed By: #### L 501.5200, L500.4050, L100.0100 ####[facility] [address] [place], [address] MCHC (RBC) [Mass/Vol] 34.0 g/dL Normal 32-36 [facility] Comment on above: Performed By: #### L 501.5200, L500.4050, L100.0100 ####[facility] [address] [place], [address] MCV (RBC) [Entitic vol] 85.5 fL Normal 81-99 [facility] Comment on above: Performed By: #### L 501.5200, L500.4050, L100.0100 ####[facility] [address] [place], [address] Monocytes/100 WBC (Bld) 8.1 % Normal 0-10 [facility] Comment on above: Performed By: #### L 501.5200, L500.4050, L100.0100 ####[facility] [address] [place], [address] Neutrophils/100 WBC (Bld) 78.2 % High 47-70 [facility] Comment on above: Performed By: #### L 501.5200, L500.4050, L100.0100 ####[facility] [address] [place], [address] Nucleated RBC (Bld) [#/Vol] 0 10*3/uL Normal 0-5 [facility] Comment on above: Performed By: #### L 501.5200, L500.4050, L100.0100 ####[facility] [address] [place], [address] Platelet mean volume (Bld) [Entitic vol] 9.7 fL Normal 6.2-12.0 [facility] Comment on above: Performed By: #### L 501.5200, L500.4050, L100.0100 ####[facility] [address] [place], [address] Platelets (Bld) [#/Vol] 226 10*3/uL Normal 150-450 [facility] Comment on above: Performed By: #### L 501.5200, L500.4050, L100.0100 ####[facility] [address] [place], [address] RBC (Bld) [#/Vol] 5.02 10*6/uL Normal 4.2-5.4 [facility] Comment on above: Performed By: #### L 501.5200, L500.4050, L100.0100 ####[facility] [address] [place], [address] RDW SD 43.0 fl Normal 35.1-43.9 [facility] Comment on above: Performed By: #### L 501.5200, L500.4050, L100.0100 ####[facility] [address] [place], [address] WBC (Bld) [#/Vol] 9.5 10*3/uL Normal 4.4-11.0 [facility] Comment on above: Performed By: #### L 501.5200, L500.4050, L100.0100 ####[facility] [address] [place], [address] Carbon dioxide, total [Moles /volume] in Central venous bloodOrdered By: Imani Persaud on 04-19-2025 CO2 [Moles/Vol] 18.6 mmol/L Low 21.0-32.0 [facility] Chloride assayOrdered By: Jonatan Persaud on 04-19-2025 Chloride [Moles/Vol] 105 mmol/L 98-108 [facility] [place] Comprehensive Metabolic Prof ilon 04-19-2025 Albumin [Mass/Vol] 4.0 g/dL Normal 3.5-5.0 [facility] Comment on above: Performed By: #### L 501.5200, L500.4050, L100.0100 ####[facility] [address] [place], [address] Albumin/Globulin [Mass ratio] 1.1 {ratio} Normal 0.9-2.4 [facility] Comment on above: Performed By: #### L 501.5200, L500.4050, L100.0100 ####[facility] [address] [place], [address] ALK PHOS 115 U/L High 35-104 [facility] Comment on above: Performed By: #### L 501.5200, L500.4050, L100.0100 ####[facility] [address] [place], [address] ALT [Catalytic activity/Vol] 14 U/L Normal <=34 [facility] Comment on above: Performed By: #### L 501.5200, L500.4050, L100.0100 ####[facility] [address] [place], [address] AST [Catalytic activity/Vol] 16 U/L Normal <=31 [facility] Comment on above: Performed By: #### L 501.5200, L500.4050, L100.0100 ####[facility] [address] [place], [address] Bilirubin [Mass/Vol] 0.33 mg/dL Normal 0.00-1.30 [facility] Comment on above: Performed By: #### L 501.5200, L500.4050, L100.0100 ####[facility] [address] [place], [address] BUN/CRE 19.6 RATIO Normal 10-20 [facility] Comment on above: Performed By: #### L 501.5200, L500.4050, L100.0100 ####[facility] [address] [place], [address] Calcium [Mass/Vol] 9.6 mg/dL Normal 7.6-11.0 [facility] Comment on above: Performed By: #### L 501.5200, L500.4050, L100.0100 ####[facility] [address] [place], [address] Chloride [Moles/Vol] 105 mmol/L Normal 98-108 [facility] [place] Comment on above: Performed By: #### L 501.5200, L500.4050, L100.0100 ####[facility] [address] [place], [address] CO2 [Moles/Vol] 18.6 mmol/L Low 21.0-32.0 [facility] Comment on above: Performed By: #### L 501.5200, L500.4050, L100.0100 ####[facility] [address] [place], [address] Creatinine [Mass/Vol] 0.59 mg/dL Low 0.70-1.20 [facility] Comment on above: Performed By: #### L 501.5200, L500.4050, L100.0100 ####[facility] [address] [place], [address] ECRCL 133.85 ml/min Normal 50-250 [facility] Comment on above: Performed By: #### L 501.5200, L500.4050, L100.0100 ####[facility] [address] [place], [address] GAP 14 Normal 5-15 [facility] Comment on above: Performed By: #### L 501.5200, L500.4050, L100.0100 ####[facility] [address] [place], [address] GFR/1.73 sq M.predicted among non-blacks MDRD (S/P/Bld) [Vol rate/Area] 107 mL/min/{1.73_m2} Normal >60 [facility] Comment on above: Result Comment: mL/m in/1.73m2 CKD-EPI Creatinine Equation (2020) Performed By: #### L 501.5200, L500.4050, L100.0100 ####[facility] [address] [place], [address] Globulin (S) [Mass/Vol] 3.8 g/dL Normal 2.2-4.2 [facility] Comment on above: Performed By: #### L 501.5200, L500.4050, L100.0100 ####[facility] [address] [place], [address] Glucose [Mass/Vol] 161 mg/dL High 70-99 [facility] Comment on above: Performed By: #### L 501.5200, L500.4050, L100.0100 ####[facility] [address] [place], [address] Potassium [Moles/Vol] 4.0 mmol/L Normal 3.3-5.1 [facility] Comment on above: Performed By: #### L 501.5200, L500.4050, L100.0100 ####[facility] [address] [place], [address] Sodium [Moles/Vol] 138 mmol/L Normal 133-145 [facility] Comment on above: Performed By: #### L 501.5200, L500.4050, L100.0100 ####[facility] [address] [place], [address] T PROT 7.7 g/dL Normal 5.9-8.4 [facility] Comment on above: Performed By: #### L 501.5200, L500.4050, L100.0100 ####[facility] [address] [place], [address] Urea nitrogen [Mass/Vol] 12 mg/dL Normal 4-19 [facility] Comment on above: Performed By: #### L 501.5200, L500.4050, L100.0100 ####[facility] [address] [place], [address] Eosinophil percentageOrdered By: Imani Persaud on 04-19-2025 Eosinophils/100 WBC (Bld) 0.2 % 0-5 [facility] Erythrocyte distribution wid th ratioOrdered By: Imani Persaud on 04-19-2025 Erythrocyte distribution width (RBC) [Ratio] 13.8 % 11.6-14.6 [facility] Erythrocyte distribution wid th standard deviationOrdered By: Imani Persaud on 04-19-2025 Erythrocyte distribution width (RBC) [Ratio] 43.0 fl 35.1-43.9 [facility] Glomerular filtration rate ( GFR) estimation/1.73 sq m using serum, plasma, or whole bOrdered By: [facility] [place] Persaud on 04-19-2025 GFR/1.73 sq M.predicted among non-blacks MDRD (S/P/Bld) [Vol rate/Area] 107 mL/min/{1.73_m2} >60 [facility] Comment on above: mL/min/1.73m2 CKD-EP I Creatinine Equation (2020) Hematocrit Auto (Bld) [Volum e fraction]Ordered By: Imani Persaud on 04-19-2025 Hematocrit (Bld) [Volume fraction] 42.9 % 37-47 [facility] Hemoglobin measurementOrdere d By: Imani Persaud on 04-19-2025 Hemoglobin (Bld) [Mass/Vol] 14.6 g/dL 12.0-15.0 [facility] Immature granulocytes/100 WB C Auto (Bld)Ordered By: Imani Persaud on 04-19-2025 Immature granulocytes/100 WBC (Bld) 0.500 % 0.0-0.9 [facility] Comment on above: IG% - Immature Granu locytes (promyelocytes, myelocytes and metamyelocytes) > 1% indicates that a LEFT SHIFT is Present. Laboratory - Chemistry and C hemistry - challengeOrdered By: Imani Persaud on 04-19-2025 AST [Catalytic activity/Vol] 16 U/L <32 [facility] MCV (mean corpuscular volume ) determinationOrdered By: Imani Persaud on 04-19-2025 MCV (RBC) [Entitic vol] 85.5 fL 81-99 [facility] Magnesiumon 04-19-2025 Magnesium [Mass/Vol] 2.1 mg/dL Normal 1.5-2.2 [facility] Comment on above: Performed By: #### L 501.5200, L500.4050, L100.0100 ####[facility] [id number] [place], [address] Magnesium measurement (mass/ volume)Ordered By: Imani Persaud on 04-19-2025 Magnesium (Unsp spec) [Mass/Vol] 2.1 mg/dL 1.5-2.2 [facility] Mean corpuscular hemoglobin (MCH) determinationOrdered By: Imani Persaud on 04-19-2025 MCH (RBC) [Entitic mass] 29.1 pg 27.0-32.0 [facility] Mean corpuscular hemoglobin concentration (MCHC) determinationOrdered By: Imani Persaud on 04-19-2025 MCHC (RBC) [Mass/Vol] 34.0 g/dL 32-36 [facility] Mean platelet volume determi nationOrdered By: Imani Persaud on 04-19-2025 Platelet mean volume (Bld) [Entitic vol] 9.7 fL 6.2-12.0 [facility] Monocyte percentageOrdered B y: Imani Persaud on 04-19-2025 Monocytes/100 WBC (Bld) 8.1 % 0-10 [facility] Neutrophil percentageOrdered By: Imani Persaud on 04-19-2025 Neutrophils/100 WBC (Bld) 78.2 % High 47-70 [facility] Nucleated red blood cell per centageOrdered By: Imani Persaud on 04-19-2025 Nucleated RBC/100 WBC (Bld) [Ratio] 0 % 0-5 [facility] Oncology Visit Reporton Oncology Visit Report Normal [facility] Platelet countOrdered By: Jonatan Persaud on 04-19-2025 Platelets (Bld) [#/Vol] 226 10*3/uL 150-450 [facility] Potassium measurement (mass/ volume)Ordered By: Imani Persaud on 04-19-2025 Potassium (Unsp spec) [Mass/Vol] 4.0 mmol/L 3.3-5.1 [facility] RBC Auto (Bld) [#/Vol]Ordere d By: Imani Persaud on 04-19-2025 RBC (Bld) [#/Vol] 5.02 10*6/uL 4.2-5.4 [facility] Serum creatinine measurement (mass/volume)Ordered By: Imani Persaud on 04-19-2025 Creatinine [Mass/Vol] 0.59 mg/dL Low 0.70-1.20 [facility] Serum globulin measurementOr dered By: Imani Persaud on 04-19-2025 Globulin (S) [Mass/Vol] 3.8 g/dL 2.2-4.2 [facility] Serum glucose measurement (m ass/volume)Ordered By: Imani Persaud on 04-19-2025 Glucose [Mass/Vol] 161 mg/dL High 70-99 [facility] Serum or plasma alanine del rio otransferase (ALT) measurementOrdered By: Imani Persaud on 04-19-2025 ALT [Catalytic activity/Vol] 14 U/L <35 [facility] Serum or plasma albumin cass urement (mass/volume)Ordered By: Imani Persaud on 04-19-2025 Albumin [Mass/Vol] 4.0 g/dL 3.5-5.0 [facility] Serum or plasma albumin/glob ulin mass ratioOrdered By: Imani Persaud on 04-19-2025 Albumin/Globulin [Mass ratio] 1.1 {ratio} 0.9-2.4 [facility] Serum or plasma alkaline tre sphatase measurementOrdered By: Imani Persaud on 04-19-2025 ALP [Catalytic activity/Vol] 115 U/L High 35-104 [facility] Serum or plasma calcium cass urement (mass/volume)Ordered By: Imani Persaud on 04-19-2025 Calcium [Mass/Vol] 9.6 mg/dL 7.6-11.0 [facility] Serum or plasma urea nitroge n measurement (mass/volume)Ordered By: Imani Cori on 04-19-2025 Urea nitrogen [Mass/Vol] 12 mg/dL - [facility] Sodium levelOrdered By: Jennifer roth Cori on 04-19-2025 Sodium [Moles/Vol] 138 mmol/L 133-145 [facility] Total proteinOrdered By: Lonnie mcgraw Cori on 04-19-2025 Protein [Mass/Vol] 7.7 g/dL 5.9-8.4 [facility] White blood cell (WBC) count Ordered By: Imani Cori on 04-19-2025 WBC (Bld) [#/Vol] 9.5 10*3/uL 4.4-11.0 [facility] Cardiology Visit Reporton Cardiology Visit Report Normal [facility] Oncology Visit Reporton 03-16 Oncology Visit Report Normal [facility] CXR for Line Placementon CXR for Line Placement Normal [facility] Discharge Instructionon 03-15 Discharge Instruction [facility] MR/POSTOP.ANEon 04-02-2025 MR/POSTOP.ANE [facility] MR/[id number] 04-02-2025 MR/POSTOPAN2 [facility] Operative Reporton Operative Report [facility] MR/PAT.ANEon 03-28-2025 MR/PAT.ANE [facility] Oncology Visit Reporton 03-15 Oncology Visit Report Normal [facility] SURG PATH REQUESTon 03-27-20 Case Report Normal [facility] Comment on above: Result Comment: Surg ical Pathology Report Case: [id number] Authorizing Provider: Christopher Cunningham MD Collected: 03/27/2025 11:33 AM [facility]ing [facility] Received: 03/27/2025 11:33 AM [place] Pathologist: Pablo Valentine MD Specimen: SURG PATH, Uterus, bilateral fallopian tubes, right ovary Performed By: #### S URGP #### [facility] (DEFAULT) [address] [place] [address] Diagnosis Comments There is no histolog ic evidence of any malignancy in this 2021 specimen. 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 [facility] Comment on above: Performed By: #### S URGP #### [facility] (DEFAULT) [address] [address] Gross Description [facility] Comment on above: Result Comment: The following material(s) are received from [facility], [address] [place] [address] with an identifying Surgical Pathology Report: 16 H&E slides labeled [id number]. Outside materials are returned in 60 days under separate cover with our number recorded on them. Grosser for this case was: [place] Performed By: #### S URGP #### [facility] (DEFAULT) [address] [address] Microscopic Description A microscopic examination was performed. [facility] Comment on above: Performed By: #### S URGP #### [facility] (DEFAULT) [address] [address] Pathologic Diagnosis [facility] Comment on above: Result Comment: Outs erika Slides [id number] (05/28/22) Uterus with bilateral fallopian tubes and right ovary, hysterectomy with right salpingo-oophorectomy and left salpingectomy: Cervix with nabothian cysts. Inactive focally-attenuated endometrium with pseudodecidual change. Myometrium with leiomyomata. Uterine serosa with no pathological data. Fallopian tubes with benign paratubal cysts. Ovary with cortical inclusion cysts. at 1200 EDT Performed By: #### S URGP #### [facility] (DEFAULT) [address] [address] Professional Interpretation Performed at: [facility] Comment on above: Result Comment: [facility] For Immediate Release to [facility] Yes [address] [address] Performed By: #### S URGP #### [facility] (DEFAULT) [address] [place] [address] COMPREHENSIVE TUMOR GENOMIC PROFILE WITH MSI STATUS, SIGN OUTon 03-26-2025 Block/ [id number] (01/26/25) [facility] Comment on above: Performed By: #### N GS2 #### [facility] (DEFAULT) [address] [address] Comment Translocation status and copy number findings are based on NGS on tumor genomic DNA and may not correlate with findings by other methods (e.g. FISH or transcript analysis). [facility] Comment on above: Performed By: #### N GS2 #### [facility] (DEFAULT) [address] [address] Copy Number Findings See interpretation above. [facility] Comment on above: Performed By: #### N GS2 #### [facility] (DEFAULT) [address] [address] CTP Indication Other [facility] Comment on above: Performed By: #### N GS2 #### [facility] (DEFAULT) [address] [address] CTP MSI Status Stable Low [facility] Comment on above: Performed By: #### N GS2 #### [facility] (DEFAULT) [address] [address] CTP Mutation Level Low Normal [facility] Comment on above: Performed By: #### N GS2 #### [facility] (DEFAULT) [address] [address] CTPNGS Report/Interpretation [facility] Comment on above: Result Comment: [facility] Comprehensive Tumor Panel Patient Information Specimen Information Name: Uzma Mcdonald Source: Pelvis, mass, excision Order ID: [id number] 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 Comment: Low tumor mutation burden with high genomic complexity is consistent with a high-grade sarcoma. Correlate with pathology report for final diagnosis. Electronically Signed By: Girish Wolfe MD, PhD Clinically Significant or Potentially Significant Tumor-Associated Variants Gene Alteration Genomic Coordinates VAF Type of Alteration Significance* Therapeutic Implications Additional Information TP53 p.Y220H c.658T>C [id number]:A:G 96.8% Substitution - Missense Tier 2, Level C Evidence gnomAD: 0.0004% ClinVar: [id number] Biomarker Status Biomarker Result Therapeutic Implications Additional [...] functional data derived from the CKB database (https://ckb.roberto.org) or [employer] annotation. For likely germline calls, associations are [...] below for this panel are described at pathology.[facility]/CTP Mutation level: Reported per tumor type in [...] of Alteration Significance* Features Additional Information CDK12 p.S6520R c.3690C>G chr17:[id number]:C:G 4.9% Substitution - Missense Tier 3 gnomAD: [...] Performed By: #### N GS2 #### [facility] (DEFAULT) [address] [place] [address] Method/Limitations: Normal [facility] Comment on above: Result Comment: Hist ologic [...] at 94 genomic regions as assessed by mSILeyou softwareS software. MSI is reported as positive (which approximately corresponds to MSI-high status) or negative. MSI-low is not determined in this assay. Discordances with PCR-based methods may occur in up to 5% of cases. This assay provides limited DNA-based translocation detection using intron tiling of selected targets (see website for list). Detection sensitivity, using [employer] and [employer] software, is approximately 70% compared to FISH. [...] review of morphologic/histologic material, if available. See [email or web address] for gene list and the methodology and limitations for other tumor genomic features reported This test was developed and its performance determined by the [facility] the [facility] at [address] [place] [address] under the medical direction of Jose Yao [...] Performed By: #### N GS2 #### [facility] (DEFAULT) [address] [place] [address] Reviewed by Girish Wolfe MD [facility] Comment on above: Performed By: #### N GS2 #### [facility] (DEFAULT) [address] [place] [address] Tissue Source Pelvis, mass, excision [facility] Comment on above: Performed By: #### N GS2 #### [facility] (DEFAULT) [address] [place] [address] Translocation Status No pathogenic chrom osomal translocations detected in limited panel assessed by intron tiling in tumor genomic DNA. [facility] Comment on above: Performed By: #### N GS2 #### [facility] (DEFAULT) [address] [place] [address] Chest, Abd, Pel w/Contras ton 03-26-2025 CT Chest, Abd, Pel w/Contrast Normal [facility] SURG PATH REQUESTon 03-26-20 Addendum [facility] Comment on above: Result Comment: This addendum is issued to report on the [id number] ER quant, and CA Quant stains were performed on block A2. Positive: ER (90%), CA (60%) Negative:SS18 Prior diagnosis remains unchanged. Addendum electronically signed by Alexandra Lan MD on 05/08/2025 at 1211 EDT Performed By: #### S URGP #### [facility] (DEFAULT) [address] [place] [address] Case Report [facility] Comment on above: Result Comment: Surg ical Pathology Report Case: [id number] Authorizing Provider: Christopher Cunningham MD Collected: 03/26/2025 11:00 AM [facility]ing [facility] Received: 03/26/2025 10:59 AM [place] Pathologist: Alexandra Lan MD Specimen: SURG PATH, A) Pelvic, pelvic mass; B) Pelvic, pelvic mass #2; C) Omentum, resection, omentum; D) Ovary, left, left ovary Performed By: #### S URGP #### [facility] (DEFAULT) [address] [address] Diagnosis Comments Normal [facility] Comment on above: Performed By: #### S URGP #### [facility] (DEFAULT) [address] [address] Gross Description Normal [facility] Comment on above: Result Comment: The following material(s) are received from [facility], [address] [place] [address] with an identifying Surgical Pathology Report: 28 H&E and 8 non-H&E slides labeled [id number]. The [facility] Surgical Pathology Report [id number] and [facility] Surgical Pathology Report [id number] are included for review. Subsequently received from the same facility on March 29, 2025, is/are 1 paraffin block(s) marked [id number] (A7), which is/are submitted to [facility] Histology/IHC Laboratory for re-cutting and additional staining. Outside materials are returned in 60 days under separate cover with our number recorded on them. Grosser for this case was: [place] Performed By: #### S URGP #### [facility] (DEFAULT) [address] [address] Microscopic Description Normal [facility] Comment on above: Result Comment: A mi croscopic examination was performed. All controls show appropriate reactivity. All immunohistochemistry (IHC), in situ hybridization (DOUGLAS), and histochemical tests were developed by and are performed at the [facility] Clinical Laboratory, Histology and IHC Lab, [address] [place] [address], [place] [address]. All Immunofluorescent (IF) tests were developed by and are performed at the [facility], Renal Division, [address] [place] [address]. All tests reported here, except for PD-L1, have not been cleared by or approved by the US Food and Drug Administration (FDA). The laboratory is regulated under CLIA as qualified to perform high-complexity testing. The tests are used for clinical purposes. They should not be regarded as investigational or for research. Performed By: #### S URGP #### [facility] (DEFAULT) [address] [place] [address] Pathologic Diagnosis Normal [facility] Comment on above: Result Comment: Outs erika Slides [id number] (01/26/25) A. 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 Low [...] of uterine leiomyomas. Dr. Grijalva has reviewed containers sales representative slides. at 2313 EDT Performed By: #### S URGP #### [facility] (DEFAULT) [address] [place] [address] Professional Interpretation Performed at: Normal [facility] Comment on above: Result Comment: [facility] For Immediate Release to [facility] Yes [address] [place] [address] Performed By: #### S URGP #### [facility] (DEFAULT) [address] [place] [address] Surgery Visit Reporton 03-26 Surgery Visit Report Normal [facility] Oncology Visit Reporton 02-13 Oncology Visit Report Normal [facility] 36on 02-16-2025 36 Pt called with path, to see Med Onc . Rec chemo. To see after chemo to discuss technician terminal and repeater surveillance [facility] 36on 02-15-[address] Antonio willard at [phone] via [employer]. Confirmation scanned within media [facility] 36 ----- Message from Reny Grady MD sent at 02/14/2025 3:41 PM EDT ----- Plz fax to Dr Lopez at [facility] ----- Message ----- From: [employer] User, Valerie Sent: 01/31/2025 1:18 PM EDT To: Darvin Grady MD [facility] 36on 02-14-[address] Miguel A luke, Called Dr Persaud's office at [facility] and provided recommendation for gemzar/taxotere for leiomyosarcoma. Dr Grady requested they send patient back to see him after chemo is completed. He does not need to see her before then. Called patient and informed her of same. She verbalized understanding and agreement with plan. [facility] 36 Mail box full [facility] Office Visiton 02-14-2025 Follow-up visit [id number] Kristina Mcdonald 1970 F Date Provider Department Center 02/14/2025 [id number] HERBERT [facility] None Family History Problem Relation Age of Onset Kidney disease Father Breast cancer Father's Sister Comments: late 50's, early 60's Family Status - Relation Status Age at Father Father's Sister Alive Level of Service:[id number] [place] OFFICE/OUTPATIENT ESTABLISHED LOW MDM 20 MIN Reason for Visit and Comments: Post-op Visit [559] - 2 wks IPO [facility] Progress Noteon 02-14-2025 Progress Note GYNECOLOGIC ONCOLOGY [...] addendum. This case was sent to the [facility] with the above diagnosis for parts A and B rendered by Dr. Pierce. Below is Dr. Pierce's comment. 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 Immunochemical stains performed by [facility] and submitted for review show that the tumor cells are positive for SMA and negative for desmin, STAT6, pancytokeratin, S100 and CD34. Immunochemical stains were performed at the [facility] with the following results: - Desmin: [...] pt would like to get chemo at [facility] infusion center near her house - Discussed some chemo basics (infection prevention) - Diflucan and nystatin cream sent to pt's pharmacy for rash, educated pt on use - Ok to resume normal activities, advised her to ease back into things I explained diagnosis and treatment plan; patient expressed understanding and was in agreement with the plan. SREEDHAR Freitas CNP I personally spent over half of (more content not included)... Normal [facility] SURGICAL PATHOLOGY REFERENCE LAB CONSULTon 02-08-2025 AP DISCLAIMER Normal [facility] Comment on above: Order Comment: Speci men Type: FORMALIN-FIXED PARAFFIN-EMBEDDED TISSUE SPECIMENOrdering Facility: [facility] Address: C/O [facility], DEPT OF PATHOLOGY, [place] [address] Result Comment: Abdullahi kahn Developed Test (LDT) Disclaimer: Performance characteristics of immunohistochemical, immunofluorescent, and chromogenic in-situ hybridization tests have been determined by the performing laboratory within [facility]'s [facility] Pathology and Laboratory Medicine Department ([facility], [facility], [facility], [facility], [facility], [facility], or [facility]) in a manner consistent with CLIA requirements. One or more of these tests may not have been cleared or approved by the FDA. [facility] is regulated under CLIA as qualified to perform high-complexity testing. These tests are used for clinical purposes. These should not be regarded as investigational or for research. Positive and negative controls stain appropriately. Performed By: #### L [id number] ####[facility] [id number] [place] [address] [place] CASE REPORT Normal [facility] Comment on above: Order Comment: Speci men Type: FORMALIN-FIXED PARAFFIN-EMBEDDED TISSUE SPECIMENOrdering Facility: [facility] Address: C/O [facility], DEPT OF PATHOLOGY, [place] [address] Result Comment: Surg ical Pathology Report Case: [id number] Authorizing Provider: Wolf Thorpe MD Collected: 02/08/2025 09:34 PM Ordering Location: [facility] Main Received: 02/08/2025 09:33 PM [facility] Pathologist: Aviva Pierce MD Specimen: Block(s) and/or Slide(s), 36 SLIDES / 1 BLOCK [id number]; A3 Performed By: #### L [id number] ####[facility]IA [id number] [address] [place] [address] [facility] CLINICAL HISTORY CONSULT REQUESTED Normal [facility] Comment on above: Order Comment: Speci men Type: FORMALIN-FIXED PARAFFIN-EMBEDDED TISSUE SPECIMENOrdering Facility: [facility] Address: O [facility], DEPT OF PATHOLOGY, [place] [address] Performed By: #### L [id number] ####[facility] LABCLIA [id number] [place] [id number] [facility] DIAGNOSIS COMMENT Normal [facility] Comment on above: Order Comment: Speci men Type: FORMALIN-FIXED PARAFFIN-EMBEDDED TISSUE SPECIMENOrdering Facility: [facility] [facility] Address: [facility], DEPT OF PATHOLOGY, [place] [address] Result Comment: Than k you for the [...] CD34. Immunohistochemical stains were performed at the [facility] with the following results: - Desmin: [...] with the diagnosis. Performed By: #### L [id number] ####[facility] LABCLIA [id number] [place] [id number] [facility] FINAL DIAGNOSIS Normal [facility] Comment on above: Order Comment: Speci men Type: FORMALIN-FIXED PARAFFIN-EMBEDDED TISSUE SPECIMENOrdering Facility: [facility] Address: C/O [facility], DEPT OF PATHOLOGY, [place] [address] Result Comment: Revi ew of slides from [facility] ([id number], 01/26/2025) A, B. Pelvic mass, excision: High-grade sarcoma with myogenic differentiation, favor leiomyosarcoma; see comment. at 1504 EDT Performed By: #### L [id number] ####[facility] LABCLIA [id number] [place] [id number] [facility] FINAL PERFORMING LAB Normal [facility] Comment on above: Order Comment: Speci men Type: FORMALIN-FIXED PARAFFIN-EMBEDDED TISSUE SPECIMENOrdering Facility: [facility] Address: C/O [facility], DEPT OF PATHOLOGY, [place] [address] Result Comment: Diag nostic interpretation performed at: [facility], [address] [place] [address], [place] [id number] CLIA# [id number] Optical Fabrication Technician: Juan Padilla MD Performed By: #### L [id number] ####[facility] LABCLIA [id number] [address] [address] [facility] 30on 01-27-2025 30 Problem: Pain - Adul t Goal: Verbalizes/displays adequate comfort level or baseline comfort level Outcome: Progressing Problem: Safety - Adult Goal: Free from fall injury Outcome: Progressing Problem: Discharge Planning Goal: Discharge to home or other facility with appropriate resources Outcome: Progressing Normal [facility] CBC (HEMOGRAM)on 01-27-2025 Erythrocyte distribution width (RBC) [Ratio] 13.0 % Normal 11.5-15.0 [facility] Comment on above: Performed By: #### L [id number] #### Spark Plug Tester: KYREE WEATHERS ([id number]) [facility]) [address] [place] [address] Hematocrit (Bld) [Volume fraction] 28.0 % Low 35.0-47.0 [facility] Comment on above: Performed By: #### L [id number] #### Spark Plug Tester: KYREE WEATHERS ([id number]) [facility]) [address] [place] [address] Hemoglobin (Bld) [Mass/Vol] 9.4 g/dL Low 11.7-16.0 [facility] Comment on above: Performed By: #### L [id number] #### Spark Plug Tester: KYREE WEATHERS ([id number]) [facility]) [address] [place] [address] MCH (RBC) [Entitic mass] 29.2 pg Normal 26.0-34.0 [facility] Comment on above: Performed By: #### L [id number] #### Spark Plug Tester: KYREE WEATHERS ([id number]) [facility]) [address] [place] [address] MCHC 33.6 % Normal 30.5-36.0 [facility] Comment on above: Performed By: #### L [id number] #### Spark Plug Tester: KYREE WEATHERS ([id number]) [facility]) [address] [place] [address] MCV (RBC) [Entitic vol] 87.0 fL Normal 77.0-99.0 [facility] Comment on above: Performed By: #### L [id number] #### Spark Plug Tester: KYREE WEATHERS ([id number]) [address] Platelet mean volume (Bld) [Entitic vol] 10.4 fL Normal 9.0-12.7 [facility] Comment on above: Performed By: #### L [id number] #### Spark Plug Tester: KYREE WEATHERS ([id number]) [facility] [address] [place] [address] Platelets (Bld) [#/Vol] 200 10*3/uL Normal 140-440 [facility] Comment on above: Performed By: #### L [id number] #### Spark Plug Tester: KYREE WEATHERS ([id number]) [facility]) [address] [place] [address] RBC (Bld) [#/Vol] 3.22 10*6/uL Low 3.80-5.20 [facility] Comment on above: Performed By: #### L [id number] #### Spark Plug Tester: KYREE WEATHERS ([id number]) [facility]) [address] [place] [address] WBC (Bld) [#/Vol] 10.4 10*3/uL Normal 3.6-10.7 [facility] Comment on above: Performed By: #### L [id number] #### Spark Plug Tester: KYREE WEATHERS ([id number]) [facility]) [address] [place] [address] CBC panel Auto (Bld)Ordered By: Theo Lopez on 01-27-2025 Erythrocyte distribution width (RBC) [Ratio] 13 % 11.5 - 15.0 % [facility] Hematocrit (Bld) [Volume fraction] 28 % Low 35.0 - 47.0 % [facility] Hemoglobin (Bld) [Mass/Vol] 9.4 g/dL Low 11.7 - 16.0 g/dL [facility] Interpretation and review of laboratory results Abnormal [facility] MCH (RBC) [Entitic mass] 29.2 pg 26.0 - 34.0 pg [facility] MCHC (RBC) [Mass/Vol] 33.6 % 30.5 - 36.0 % [facility] MCV (RBC) [Entitic vol] 87 fL 77.0 - 99.0 fL [facility] Platelet mean volume (Bld) [Entitic vol] 10.4 fL 9.0 - 12.7 fL [facility] Platelets (Bld) [#/Vol] 200 10*3/uL 140 - 440 10*3/uL [facility] RBC (Bld) [#/Vol] 3.22 10*6/uL Low 3.80 - 5.2 0 10*6/uL [employer] WBC (Bld) [#/Vol] 10.4 10*3/uL 3.6 - 10.7 10*3/uL [facility] No Panel InformationOrdered By: Linus Cain on 01-27-2025 P Tyro 53 degrees [employer] Work Phone: CA Interval 185 ms [employer] Work Phone: QRS Tyro 56 degrees [employer] Work Phone: QRSD Interval 76 ms [employer] Phone: QT Interval 372 ms [employer] Phone: QTC Interval 418 ms [employer] Phone: T Wave Tyro 53 degrees [employer] Phone: [employer] Phone: No Panel Informationon 01-27 Linus Cain MD - 01/27/2025 IMPRESSION: Sinus rhythm Low voltage, precordial leads Poor R wave progression Electronically Signed On 01-27-2025 11:41:44 EDT by Linus Cain [facility] School[facility] Progress Noteon 01-27-2025 Progress Note ------ -- [...] follow-up, questions answered. Sumaya Marroquin MD -- [employer] Progress Note Please page the [facility] [employer] ONC Call RES group via Secure Chat [...] QTC Interval 01/26/2025 418 ms Final P Tyro 01/26/2025 53 degrees Final QRS Tyro 01/26/2025 56 degrees Final T Wave Tyro 01/26/2025 53 degrees Final CA Interval 01/26/2025 185 ms Final Auto WBC [...] (more content not included)... Normal [facility] Vital signsOrdered By: Alina Cain on 01-27-2025 Heart rate 76 /min bpm [facility] Work Phone: 30on 01-26-2025 30 Problem: Pain - Adul t Goal: Verbalizes/displays adequate comfort level or baseline comfort level Outcome: Progressing Problem: Safety - Adult Goal: Free from fall injury Outcome: Progressing Problem: Discharge Planning Goal: Discharge to home or other facility with appropriate resources Outcome: Progressing Normal [facility] ABO and Rh group Confirm Nom (Bld)on 01-26-2025 ABO group Nom (Bld) A [facility] D Ag Ql (RBC) Positive [facility] BASIC METABOLIC PANELon 01-13 Anion gap [Moles/Vol] 10 mmol/L Normal 3-13 [facility] Comment on above: Performed By: #### L AB15 #### Spark Plug Tester: KYREE WEATHERS ([id number]) [facility]) [address] [place] [address] Calcium [Mass/Vol] 9.0 mg/dL Normal 8.4-10.2 [facility] Comment on above: Performed By: #### L AB15 #### Spark Plug Tester: KYREE WEATHERS ([id number]) [facility]) [address] [place] [address] Chloride [Moles/Vol] 104 mmol/L Normal 98-107 [facility] Comment on above: Performed By: #### L AB15 #### Spark Plug Tester: KYREE WEATHERS ([id number]) [facility]) [address] [place] [address] [place] CO2 [Moles/Vol] 22 mmol/L Normal 22-29 [facility] Comment on above: Performed By: #### L AB15 #### Spark Plug Tester: KYREE WEATHERS ([id number]) [facility]) [address] [place] [address] Creatinine [Mass/Vol] 0.64 mg/dL Normal 0.57-1.11 [facility] Comment on above: Performed By: #### L AB15 #### Spark Plug Tester: KYREE WEATHERS ([id number]) [facility]) [address] [place] [address] GLOMERULAR FILTRATION RATE ML/MIN/1.73 SQ M.PREDICTED >90.0 Normal >60.0 [facility] Comment on above: Result Comment: Calc ulation based on the Chronic Kidney Disease Epidemiology Collaboration (CKD-EPI) equation refit without adjustment for race Performed By: #### L AB15 #### Spark Plug Tester: KYREE WEATHERS ([id number]) [facility]) [address] [place] [address] Glucose [Mass/Vol] 129 mg/dL High 74-100 [facility] Comment on above: Performed By: #### L AB15 #### Spark Plug Tester: KYREE WEATHERS ([id number]) [facility]) [address] [place] [address] Potassium [Moles/Vol] 3.7 mmol/L Normal 3.5-5.1 [facility] Comment on above: Result Comment: [facility] potassium values may be up to 0.5 mmol/L lower than serum values. Performed By: #### L AB15 #### Spark Plug Tester: KYREE WEATHERS ([id number]) [facility]) [address] [place] [address] Sodium [Moles/Vol] 136 mmol/L Normal 136-145 [facility] Comment on above: Performed By: #### L AB15 #### Spark Plug Tester: KYREE WEATHERS ([id number]) [facility]) [address] [place] [address] Urea nitrogen [Mass/Vol] 12 mg/dL Normal 9-23 [facility] Comment on above: Performed By: #### L AB15 #### Spark Plug Tester: KYREE WEATHERS ([id number]) [facility]) [address] [place] [address] BLOOD TYPE AND SCREEN GELon 01-26-2025 ABO GROUPING A Normal [facility] Comment on above: Order Comment: HOLD. Specimen is valid for 3 days - nurse to verify valid specimen Performed By: #### L AB15 #### Spark Plug Tester: KYREE WEATHERS ([id number]) [facility] [address] [place] [address] RH TYPE IN BLOOD Positive Normal [facility] Comment on above: Order Comment: HOLD. Specimen is valid for 3 days - nurse to verify valid specimen Performed By: #### L AB15 #### Spark Plug Tester: KYREE WEATHERS ([id number]) [facility] [address] [place] [address] Basic metabolic 1998 panelon 01-26-2025 Anion gap [Moles/Vol] 10 mmol/L 3 - 13 mmol/L [facility] Calcium [Mass/Vol] 9 mg/dL 8.4 - 10. 2 mg/dL [facility] Chloride [Moles/Vol] 104 mmol/L 98 - 10 7 mmol/L [facility] CO2 [Moles/Vol] 22 mmol/L 22 - 29 mmol/L [facility] Creatinine [Mass/Vol] 0.64 mg/dL 0.57 - 1.11 mg/dL [facility] GFR/1.73 sq M.predicted (S/P/Bld) [Vol rate/Area] - PINF [facility] Comment on above: Calculation based on the Chronic Kidney Disease Epidemiology Collaboration (CKD-EPI) equation refit without adjustment for race Glucose [Mass/Vol] 129 mg/dL High 74 - 100 mg/dL [facility] Interpretation and review of laboratory results Abnormal [facility] Potassium [Moles/Vol] 3.7 mmol/L 3.5 - 5.1 mmol/L [facility] Comment on above: Plasma potassium fredis ues may be up to 0.5 mmol/L lower than serum values. Sodium [Moles/Vol] 136 mmol/L 136 - 145 mmol/L [facility] Urea nitrogen [Mass/Vol] 12 mg/dL 9 - 23 mg/dL [facility] Blood type and Crossmatch pa chantale (Bld)on 01-26-2025 ABO group Nom (Bld) A [facility] Blood group antibody screen GEL Ql Negative [facility] D Ag Ql (RBC) Positive [facility] CBC (HEMOGRAM)on 01-26-2025 Erythrocyte distribution width (RBC) [Ratio] 13.2 % Normal 11.5-15.0 [facility] Comment on above: Performed By: #### L [id number] #### Spark Plug Tester: KYREE WEATHERS ([id number]) [address] Hematocrit (Bld) [Volume fraction] 38.2 % Normal 35.0-47.0 [facility] Comment on above: Performed By: #### L [id number] #### Spark Plug Tester: KYREE WEATHERS ([id number]) [facility]) [address] [place] [address] Hemoglobin (Bld) [Mass/Vol] 13.0 g/dL Normal 11.7-16.0 [facility] Comment on above: Performed By: #### L [id number] #### Spark Plug Tester: KYREE WEATHERS ([id number]) [address] MCH (RBC) [Entitic mass] 28.7 pg Normal 26.0-34.0 [facility] Comment on above: Performed By: #### L AB294 #### Spark Plug Tester: KYREE WEATHERS ([id number]) [address] MCHC 34.0 % Normal 30.5-36.0 [facility] Comment on above: Performed By: #### L [id number] #### Spark Plug Tester: KYREE WEATHERS ([id number]) [facility]) [address] [place] [address] MCV (RBC) [Entitic vol] 84.3 fL Normal 77.0-99.0 [facility] Comment on above: Performed By: #### L [id number] #### Spark Plug Tester: KYREE WEATHERS ([id number]) [address] Platelet mean volume (Bld) [Entitic vol] 10.4 fL Normal 9.0-12.7 [facility] Comment on above: Performed By: #### L [id number] #### Spark Plug Tester: KYREE WEATHERS ([id number]) [facility] [address] [place] [address] Platelets (Bld) [#/Vol] 227 10*3/uL Normal 140-440 [facility] Comment on above: Performed By: #### L [id number] #### Spark Plug Tester: KYREE WEATHERS ([id number]) [facility] [address] [place] [address] RBC (Bld) [#/Vol] 4.53 10*6/uL Normal 3.80-5.20 [facility] Comment on above: Performed By: #### L [id number] #### Spark Plug Tester: KYREE WEATHERS ([id number]) [facility]) [address] [place] [address] WBC (Bld) [#/Vol] 8.5 10*3/uL Normal 3.6-10.7 [facility] Comment on above: Performed By: #### L [id number] #### Spark Plug Tester: KYREE WEATHERS ([id number]) [facility]) [address] [place] [address] CBC panel Auto (Bld)on 01-26 Erythrocyte distribution width (RBC) [Ratio] 13.2 % 11.5 - 15.0 % [facility] Hematocrit (Bld) [Volume fraction] 38.2 % 35.0 - 47.0 % [facility] Hemoglobin (Bld) [Mass/Vol] 13 g/dL 11.7 - 16.0 g/dL [facility] Interpretation and review of laboratory results Normal [facility] MCH (RBC) [Entitic mass] 28.7 pg 26.0 - 34.0 pg [facility] MCHC (RBC) [Mass/Vol] 34 % 30.5 - 36.0 % [facility] MCV (RBC) [Entitic vol] 84.3 fL 77.0 - 99.0 fL [facility] Platelet mean volume (Bld) [Entitic vol] 10.4 fL 9.0 - 12.7 fL [facility] Platelets (Bld) [#/Vol] 227 10*3/uL 140 - 440 10*3/uL [facility] RBC (Bld) [#/Vol] 4.53 10*6/uL 3.80 - 5.2 0 10*6/uL [facility] WBC (Bld) [#/Vol] 8.5 10*3/uL 3.6 - 10.7 10*3/uL [facility] Nursing Noteon 01-26-2025 Nursing Note Meds to Beds deliver ed to patient. Pt declined oxycodone prescription and sent back with Meds to Beds. [facility] Nursing Note Report given to Jenny PCAK [facility] Nursing Note Faxed report sheet to Yaneli [facility] Nursing Note Patient family/visit or updated by RN at this time. [facility] Op Noteon 01-26-2025 Op Note Date of [...] Hemostasis was with several small 3-0 Vicryl [id number]'s in the bladder peritoneum Bovie cautery as [...] cover room in stable condition by anesthesia [facility] Op Note Date: 01/26/2025 Loca tion: ACH [...] Wash NON-GYNECOLOGIC CYTOLOGY Darvin Grady MD 01/26/25 0899 No Description: pelvic washings 2 Pelvic Tissue TISSUE EXAM Darvin Grady MD 01/26/25 09 Yes STAT Description: pelvic mass 3 Pelvic Tissue TISSUE EXAM Dravin Grady MD 01/26/25 09 No Routine Description: pelvic mass #2 4 Omentum, Biopsy Tissue TISSUE EXAM Darvin Grady MD 01/26/25 0913 No Routine Description: omentum 5 Ovary, Left Tissue TISSUE EXAM Darvin Grady MD 01/26/25927 Routine Description: LEFT OVARY Staff: Consumer Loan Specialist: Dora Castro RN Scrub Person: Daysi Escobar RN [place] to Circ: Sabrina Philip RN Findings: Leiomyosarcoma [...] (two hours if receiving Vancomycin or flouroquinolone) [facility] [id number] 01-23-2025 [id number] Medication List Accurate as of January 23, [...] Adjustments for Surgery: Take night before surgery PICKET LABOR UNION AND PARKING IN THE MAIN DECK ARE [...] surgery time. Please bring your [facility] folder and medication list with you day of surgery. We encourage you to write down any questions you may have for the surgeon, anesthesiologist, or other members of the surgical team and bring it with you the day of surgery. Please bring photo ID and insurance information. Normal [facility] Cancer Antigen 125on 025 CA 125 11.3 U/mL Normal 0.0-38.1 [facility] Comment on above: Result Comment: [facility] Electrochemiluminescence Immunoassay(ECLIA)Values obtained with different assay methods or kits cannotbe used interchangeably. Results cannot be interpreted asabsolute evidence of the presence or absence of malignantdisease.Performed at: [facility] [employer] [id number] Director: Richi Vargas PhD, Phone: [phone] Performed By: #### L 504.2610, L3100.5000, L100.0100, L500.4050, L100.9950 ####[facility] [address] [place], [place], [id number] 36on 01-19-2025 36 PAT 01.23.2025 at 9: 30 am by phone SX: 04.28.2025 at 8:30 am arrival at 6:30 am Post op 02.09.2025 at 11 am Folder and instructions given. Normal [facility] Cancer antigen 125 (CA-125) measurementOrdered By: Imani Persaud on 01-19-2025 CA 125 Antigen 11.3 U/mL 0.0-38.1 [facility] Comment on above: [facility] [employer] El ectrochemiluminescence Immunoassay(ECLIA)Values obtained with different assay methods or kits cannotbe used interchangeably. Results cannot be interpreted asabsolute evidence of the presence or absence of malignantdisease.Performed at: [facility] [place], [place] [id number] Director: Richi Vargas PhD, Phone: [phone] Cancer antigen 125 (CA-125) measurement 11.3 U/mL 0.0-38.1 [facility] Comment on above: [facility] [employer] El ectrochemiluminescence Immunoassay(ECLIA)Values obtained with different assay methods or kits cannotbe used interchangeably. Results cannot be interpreted asabsolute evidence of the presence or absence of malignantdisease.Performed at: [facility] [place], [place] [id number] Director: Richi Vargas PhD, Phone: [phone] Office Visiton 01-17-2025 Follow-up visit [id number] Kristina Mcdonald [facility] 1970 F Date Provider Department Center 01/17/2025 [id number] [facility] [employer] None Family History Problem Relation Age of Onset Kidney disease Father Breast cancer Father's Sister Comments: late 50's, early 60's Family Status - Relation Status Age at Father Father's Sister Alive Level of Service:61649 [place] OFFICE/OUTPATIENT NEW LOW MDM 30 MINUTES Reason for Visit and Comments: Female Problem [263] Normal [facility] Progress Noteon 01-17-2025 Progress Note Online Communications Manager was offere d to the patient for exam. Patient accepted, ophthalmic medical technician in room during exam Normal [facility] Transvaginal Non-on 01-12-2025 Transvaginal Non- Normal [facility] Absolute lymphocyte countOrd ered By: Imani Persaud on 01-10-2025 Lymphocytes Auto (Unsp spec) [#/Vol] 1.58 10*3/uL 0.83-4.51 [facility] Absolute neutrophil countOrd ered By: Imani Persaud on 01-10-2025 Neutrophils (Bld) [#/Vol] 5.7 10*3/uL 2.0-7.7 [facility] Automated lymphocyte count a s percentage of total leukocytesOrdered By: Imani Persaud on 01-10-2025 Lymphocytes/100 WBC Auto (Unsp spec) 19.3 % 19-41 [facility] BUN/creatinine ratioOrdered By: Imani Persaud on 01-10-2025 Urea nitrogen/Creatinine [Mass ratio] 20.6 mg/mg High 10-20 [facility] Basophil percentageOrdered B y: Imani Persaud on 01-10-2025 Basophils/100 WBC (Bld) 0.9 % 0-1 [facility] Bilirubin, totalOrdered By: Imani Persaud on 01-10-2025 Bilirubin [Mass/Vol] 0.43 mg/dL 0.00-1.30 [facility] CBC W/Diff, Automatedon 12-17 Absolute Lymph 1.58 X10 3/uL Normal 0.83-4.51 [facility] Comment on above: Performed By: #### L 504.2610, L3100.5000, L100.0100, L500.4050, L100.9950 ####[facility] [address] [place], [address] Absolute Neut 5.7 X10 3/uL Normal 2.0-7.7 [facility] Comment on above: Performed By: #### L 504.2610, L3100.5000, L100.0100, L500.4050, L100.9950 ####[facility] [address] [place], [address] Basophils/100 WBC (Bld) 0.9 % Normal 0-1 [facility] Comment on above: Performed By: #### L 504.2610, L3100.5000, L100.0100, L500.4050, L100.9950 ####[facility] [address] [place], [address] Eosinophils/100 WBC (Bld) 3.7 % Normal 0-5 [facility] Comment on above: Performed By: #### L 504.2610, L3100.5000, L100.0100, L500.4050, L100.9950 ####[facility] [address] [place], [address] Erythrocyte distribution width (RBC) [Ratio] 13.0 % Normal 11.6-14.6 [facility] Comment on above: Performed By: #### L 504.2610, L3100.5000, L100.0100, L500.4050, L100.9950 ####[facility] [address] [place], [address] Hematocrit (Bld) [Volume fraction] 42.6 % Normal 37-47 [facility] Comment on above: Performed By: #### L 504.2610, L3100.5000, L100.0100, L500.4050, L100.9950 ####[facility] [address] [place], [address] Hemoglobin (Bld) [Mass/Vol] 13.9 g/dL Normal 12.0-15.0 [facility] Comment on above: Performed By: #### L 504.2610, L3100.5000, L100.0100, L500.4050, L100.9950 ####[facility] [address] [place], [address] IG% 0.600 Normal 0.0-0.9 [facility] Comment on above: Result Comment: IG% - Immature Granulocytes (promyelocytes, myelocytes andmetamyelocytes) > 1% indicates that a LEFT SHIFT is Present. Performed By: #### L 504.2610, L3100.5000, L100.0100, L500.4050, L100.9950 ####[facility] [address] [place], [address] Lymphocytes/100 WBC (Bld) 19.3 % Normal 19-41 [facility] Comment on above: Performed By: #### L 504.2610, L3100.5000, L100.0100, L500.4050, L100.9950 ####[facility] [address] [place], [address] MCH (RBC) [Entitic mass] 30.1 pg Normal 27.0-32.0 [facility] Comment on above: Performed By: #### L 504.2610, L3100.5000, L100.0100, L500.4050, L100.9950 ####[facility] [address] [place], [address] MCHC (RBC) [Mass/Vol] 32.6 g/dL Normal 32-36 [facility] Comment on above: Performed By: #### L 504.2610, L3100.5000, L100.0100, L500.4050, L100.9950 ####[facility] [address] [place], [address] MCV (RBC) [Entitic vol] 92.2 fL Normal 81-99 [facility] Comment on above: Performed By: #### L 504.2610, L3100.5000, L100.0100, L500.4050, L100.9950 ####[facility] [address] [place], [address] Monocytes/100 WBC (Bld) 6.1 % Normal 0-10 [facility] Comment on above: Performed By: #### L 504.2610, L3100.5000, L100.0100, L500.4050, L100.9950 ####[facility] [address] [place], [address] Neutrophils/100 WBC (Bld) 69.4 % Normal 47-70 [facility] Comment on above: Performed By: #### L 504.2610, L3100.5000, L100.0100, L500.4050, L100.9950 ####[facility] [address] [place], [address] Nucleated RBC (Bld) [#/Vol] 0 10*3/uL Normal 0-5 [facility] Comment on above: Performed By: #### L 504.2610, L3100.5000, L100.0100, L500.4050, L100.9950 ####[facility] [address] [place], [address] Platelet mean volume (Bld) [Entitic vol] 9.9 fL Normal 6.2-12.0 [facility] Comment on above: Performed By: #### L 504.2610, L3100.5000, L100.0100, L500.4050, L100.9950 ####[facility] [address] [place], [address] Platelets (Bld) [#/Vol] 250 10*3/uL Normal 150-450 [facility] Comment on above: Performed By: #### L 504.2610, L3100.5000, L100.0100, L500.4050, L100.9950 ####[facility] [address] [place], [address] RBC (Bld) [#/Vol] 4.62 10*6/uL Normal 4.2-5.4 [facility] Comment on above: Performed By: #### L 504.2610, L3100.5000, L100.0100, L500.4050, L100.9950 ####[facility] [address] [place], [address] RDW SD 43.4 fl Normal 35.1-43.9 [facility] Comment on above: Performed By: #### L 504.2610, L3100.5000, L100.0100, L500.4050, L100.9950 ####[facility] [address] [place], [address] WBC (Bld) [#/Vol] 8.2 10*3/uL Normal 4.4-11.0 [facility] Comment on above: Performed By: #### L 504.2610, L3100.5000, L100.0100, L500.4050, L100.9950 ####[facility] [address] [place], [place], [address] Carbon dioxide measurementOr dered By: Imani Persaud on 01-10-2025 CO2 [Moles/Vol] 25.5 mmol/L 22.0-29.0 [facility] Chloride measurementOrdered By: Imani Persaud on 01-10-2025 Chloride [Moles/Vol] 103 mmol/L 96-108 [facility] [place] Comprehensive Metabolic Prof ilon 01-10-2025 CO2 [Moles/Vol] 25.5 mmol/L Normal 22.0-29.0 [facility] Comment on above: Performed By: #### L 504.2610, L3100.5000, L100.0100, L500.4050, L100.9950 ####[facility] [address] [place], [place], [id number] Eosinophil percentageOrdered By: Imani Persaud on 01-10-2025 Eosinophils/100 WBC (Bld) 3.7 % 0-5 [facility] Erythrocyte distribution wid th ratioOrdered By: [facility] Persaud on 01-10-2025 Erythrocyte distribution width (RBC) [Ratio] 13.0 % 11.6-14.6 [facility] Erythrocyte distribution wid th standard deviationOrdered By: [facility] [place] Persaud on 01-10-2025 Erythrocyte distribution width (RBC) [Entitic vol] 43.4 fL 35.1-43.9 [facility] Erythrocyte distribution width (RBC) [Ratio] 43.4 fl 35.1-43.9 [facility] GFR/1.73 sq M.predicted leisa g non-blacks MDRD (S/P/Bld) [Vol rate/Area]Ordered By: Imani Persaud on 01-10-2025 Estimated GFR (MDRD) Non-Af Amer 107 >60 [facility] Comment on above: mL/min/1.73m2 CKD-EP I Creatinine Equation (2020) Glomerular filtration rate ( GFR) estimation/1.73 sq m using serum, plasma, or whole bOrdered By: Imani Persaud on 01-10-2025 GFR/1.73 sq M.predicted among non-blacks MDRD (S/P/Bld) [Vol rate/Area] 107 mL/min/{1.73_m2} >60 [facility] Comment on above: mL/min/1.73m2 CKD-EP I Creatinine Equation (2020) Hematocrit Auto (Bld) [Volum e fraction]Ordered By: Imani Persaud on 01-10-2025 Hematocrit (Bld) [Volume fraction] 42.6 % 37-47 [facility] Hemoglobin (Reticulocytes) [ Entitic mass]Ordered By: Imani Persaud on 01-10-2025 Reticulocyte Hemoglobin Equivalent 29.6 pg Low 30-35 [facility] Hemoglobin measurementOrdere d By: Imani Persaud on 01-10-2025 Hemoglobin (Bld) [Mass/Vol] 13.9 g/dL 12.0-15.0 [facility] Immature granulocytes/100 WB C Auto (Bld)Ordered By: [facility] Persaud on 01-10-2025 Immature granulocytes/100 WBC (Bld) 0.600 % 0.0-0.9 [facility] Comment on above: IG% - Immature Granu locytes (promyelocytes, myelocytes and metamyelocytes) > 1% indicates that a LEFT SHIFT is Present. Immature reticulocyte fracti onOrdered By: Imani Persaud on 01-10-2025 Immature Reticulocyte Fraction 22.90 % High 3.00-15.90 [facility] LDHon 01-10-2025 LDH 234 U/L Normal 84-246 [facility] Comment on above: Order Comment: 1 Performed By: #### L 504.2610, L3100.5000, L100.0100, L500.4050, L100.9950 ####[facility] [address] [place], [address] Laboratory - Chemistry and C hemistry - challengeOrdered By: Imani Persaud on 01-10-2025 AST [Catalytic activity/Vol] 26 U/L <32 [facility] Lactate dehydrogenase (LDH) measurementOrdered By: [facility] [place] Persaud on 01-10-2025 LDH [Catalytic activity/Vol] 234 U/L 84-246 [facility] Lymphocytes Auto (Unsp spec) [#/Vol]Ordered By: Imani Persaud on 01-10-2025 Lymphocytes (Bld) [#/Vol] 1.58 10*3/uL 0.83-4.51 [facility] Lymphocytes/100 WBC Auto (Un sp spec)Ordered By: Imani Persaud on 01-10-2025 Lymphocytes/100 WBC (Bld) 19.3 % 19-41 [facility] MCV (mean corpuscular volume ) determinationOrdered By: Imani Persaud on 01-10-2025 MCV (RBC) [Entitic vol] 92.2 fL 81-99 [facility] Mean corpuscular hemoglobin (MCH) determinationOrdered By: Imani Persaud on 01-10-2025 MCH (RBC) [Entitic mass] 30.1 pg 27.0-32.0 [facility] Mean corpuscular hemoglobin concentration (MCHC) determinationOrdered By: Imani Persaud on 01-10-2025 MCHC (RBC) [Mass/Vol] 32.6 g/dL 32-36 [facility] Mean platelet volume determi nationOrdered By: Imani Persaud on 01-10-2025 Platelet mean volume (Bld) [Entitic vol] 9.9 fL 6.2-12.0 [facility] Monocyte percentageOrdered B y: Imani Persaud on 01-10-2025 Monocytes/100 WBC (Bld) 6.1 % 0-10 [facility] Neutrophil percentageOrdered By: Imani Persaud on 01-10-2025 Neutrophils/100 WBC (Bld) 69.4 % 47-70 [facility] Nucleated red blood cell per centageOrdered By: Imani Persaud on 01-10-2025 Nucleated RBC/100 WBC (Bld) [Ratio] 0 % 0-5 [facility] Oncology Visit Reporton 12-17 Oncology Visit Report Normal [facility] Platelet countOrdered By: Jonatan Persaud on 01-10-2025 Platelets (Bld) [#/Vol] 250 10*3/uL 150-450 [facility] RBC Auto (Bld) [#/Vol]Ordere d By: Imani Persaud on 01-10-2025 RBC (Bld) [#/Vol] 4.62 10*6/uL 4.2-5.4 [facility] Retic Panelon 01-10-2025 IM RET FRACTION 22.90 High 3.00-15.90 [facility] Comment on above: Performed By: #### L 504.2610, L3100.5000, L100.0100, L500.4050, L100.9950 ####[facility] [address] [place], [address] RET-HE 29.6 pg Low 30-35 [facility] Comment on above: Performed By: #### L 504.2610, L3100.5000, L100.0100, L500.4050, L100.9950 ####[facility] [address] [place], [address] Retic Count 2.15 High 0.5-1.5 [facility] Comment on above: Performed By: #### L 504.2610, L3100.5000, L100.0100, L500.4050, L100.9950 ####[facility] [address] [place], [address] Reticulocyte hemoglobin equi valent (RET-He) measurementOrdered By: Imani Persaud on 01-10-2025 Hemoglobin (Reticulocytes) [Entitic mass] 29.6 pg Low 30-35 [facility] Reticulocytes Auto (Bld) [#/ Vol]Ordered By: Imani Persaud on 01-10-2025 Reticulocyte Count 2.15 % High 0.5-1.5 [facility] Reticulocytes/100 RBC (Bld) 2.15 % High 0.5-1.5 [facility] Serum creatinine measurement (mass/volume)Ordered By: Imani Persaud on 01-10-2025 Creatinine [Mass/Vol] 0.6 mg/dL 0.70-1.20 [facility] Serum globulin measurementOr dered By: Imani Persaud on 01-10-2025 Globulin (S) [Mass/Vol] 4.1 g/dL 2.2-4.2 [facility] Serum glucose measurement (m ass/volume)Ordered By: Imani Persaud on 01-10-2025 Glucose [Mass/Vol] 95 mg/dL 70-99 [facility] Serum or plasma alanine del rio otransferase (ALT) measurementOrdered By: Imani Persaud on 01-10-2025 ALT [Catalytic activity/Vol] 20 U/L <35 [facility] Serum or plasma albumin cass urement (mass/volume)Ordered By: Imani Persaud on 01-10-2025 Albumin [Mass/Vol] 3.7 g/dL 3.5-5.0 [facility] Serum or plasma albumin/glob ulin mass ratioOrdered By: Imani Persaud on 01-10-2025 Albumin/Globulin [Mass ratio] 0.9 {ratio} 0.9-2.4 [facility] Serum or plasma alkaline tre sphatase measurementOrdered By: Imani Persaud on 01-10-2025 ALP [Catalytic activity/Vol] 92 U/L 35-104 [facility] Serum or plasma anion gap de termination (moles/volume)Ordered By: Imani Persaud on 01-10-2025 Anion gap [Moles/Vol] 10 mmol/L 5-15 [facility] Serum or plasma calcium cass urement (mass/volume)Ordered By: Imani Persaud on 01-10-2025 Calcium [Mass/Vol] 8.9 mg/dL 7.6-11.0 [facility] Serum or plasma potassium me asurementOrdered By: Imani Persaud on 01-10-2025 Potassium [Moles/Vol] 4.2 mmol/L 3.3-5.1 [facility] Serum or plasma sodium measu rement (moles/volume)Ordered By: Imani Persaud on 01-10-2025 Sodium [Moles/Vol] 138 mmol/L 133-145 [facility] Serum or plasma urea nitroge n measurement (mass/volume)Ordered By: Imani Persaud on 01-10-2025 Urea nitrogen [Mass/Vol] 12 mg/dL 4-19 [facility] Total proteinOrdered By: Lonnie Persaud on 01-10-2025 Protein [Mass/Vol] 7.8 g/dL 5.9-8.4 [facility] Urine Cultureon 01-10-2025 URC Mixed Gram Positive Organisms [place] Count 25,000-50,000 [facility] Mixed contaminants. Submit a new specimen if indicated. Normal [facility] Comment on above: Performed By: #### M 100.9352 ####[facility] [address] [place], [address] White blood cell (WBC) count Ordered By: Imani Cori on 01-10-2025 WBC (Bld) [#/Vol] 8.2 10*3/uL 4.4-11.0 [facility] Abdomen/Pelvis W IV Cont ONL Yon 01-08-2025 Abdomen/Pelvis W IV Cont ONLY Normal [facility] Absolute lymphocyte countOrd ered By: ED PROVIDER on 01-08-2025 Lymphocytes Auto (Unsp spec) [#/Vol] 1.90 10*3/uL 0.83-4.51 [facility] Absolute neutrophil countOrd ered By: ED PROVIDER on 01-08-2025 Neutrophils (Bld) [#/Vol] 6.6 10*3/uL 2.0-7.7 [facility] Albumin to globulin ratioOrd ered By: ED PROVIDER on 01-08-2025 Albumin/Globulin [Mass ratio] 0.6 {ratio} Low 0.9-2.4 [facility] Automated lymphocyte count a s percentage of total leukocytesOrdered By: ED PROVIDER on 01-08-2025 Lymphocytes/100 WBC Auto (Unsp spec) 20.3 % 19-41 [facility] Basophil percentageOrdered B y: ED PROVIDER on 01-08-2025 Basophils/100 WBC (Bld) 0.6 % 0-1 [facility] Bilirubin Test strip Ql (U)O rdered By: Isaiah Villanueva on 01-08-2025 Bilirubin Ql (U) Negative Negative [facility] Bilirubin, totalOrdered By: ED PROVIDER on 01-08-2025 Bilirubin [Mass/Vol] 1.20 mg/dL High 0.20-1.00 [facility] [place] Comment on above: For patients on eltr ombopag therapy, use of Dim[place] TBIL is not recommended. Blood urea nitrogen (BUN)/cr eatinine ratioOrdered By: ED PROVIDER on 01-08-2025 Urea nitrogen/Creatinine [Mass ratio] 19.1 mg/mg - [facility] CBC W/Diff, Automatedon 12-17 Absolute Lymph 1.90 X10 3/uL Normal 0.83-4.51 [facility] Comment on above: Performed By: #### L 100.0100, L501.2450, L500.4050 ####[facility] [address] [place], [address] Absolute Neut 6.6 X10 3/uL Normal 2.0-7.7 [facility] Comment on above: Performed By: #### L 100.0100, L501.2450, L500.4050 ####[facility] [address] [place], [address] Basophils/100 WBC (Bld) 0.6 % Normal 0-1 [facility] Comment on above: Performed By: #### L 100.0100, L501.2450, L500.4050 ####[facility] [address] [place], [address] Eosinophils/100 WBC (Bld) 1.8 % Normal 0-5 [facility] Comment on above: Performed By: #### L 100.0100, L501.2450, L500.4050 ####[facility] [address] [place], [address] Erythrocyte distribution width (RBC) [Ratio] 13.2 % Normal 11.6-14.6 [facility] Comment on above: Performed By: #### L 100.0100, L501.2450, L500.4050 ####[facility] [address] [place], [address] Hematocrit (Bld) [Volume fraction] 43.8 % Normal 37-47 [facility] Comment on above: Performed By: #### L 100.0100, L501.2450, L500.4050 ####[facility] [address] [place], [address] Hemoglobin (Bld) [Mass/Vol] 14.7 g/dL Normal 12.0-15.0 [facility] Comment on above: Performed By: #### L 100.0100, L501.2450, L500.4050 ####[facility] [address] [place], [address] IG% 0.300 Normal 0.0-0.9 [facility] Comment on above: Result Comment: IG% - Immature Granulocytes (promyelocytes, myelocytes andmetamyelocytes) > 1% indicates that a LEFT SHIFT is Present. Performed By: #### L 100.0100, L501.2450, L500.4050 ####[facility] [address] [place], [address] Lymphocytes/100 WBC (Bld) 20.3 % Normal 19-41 [facility] Comment on above: Performed By: #### L 100.0100, L501.2450, L500.4050 ####[facility] [address] [place], [address] MCH (RBC) [Entitic mass] 29.8 pg Normal 27.0-32.0 [facility] Comment on above: Performed By: #### L 100.0100, L501.2450, L500.4050 ####[facility] [address] [place], [address] MCHC (RBC) [Mass/Vol] 33.6 g/dL Normal 32-36 [facility] Comment on above: Performed By: #### L 100.0100, L501.2450, L500.4050 ####[facility] [address] [place], [address] MCV (RBC) [Entitic vol] 88.7 fL Normal 81-99 [facility] Comment on above: Performed By: #### L 100.0100, L501.2450, L500.4050 ####[facility] [address] [place], [address] Monocytes/100 WBC (Bld) 6.3 % Normal 0-10 [facility] Comment on above: Performed By: #### L 100.0100, L501.2450, L500.4050 ####[facility] [address] [place], [address] Neutrophils/100 WBC (Bld) 70.7 % High 47-70 [facility] Comment on above: Performed By: #### L 100.0100, L501.2450, L500.4050 ####[facility] [address] [place], [address] Nucleated RBC (Bld) [#/Vol] 0 10*3/uL Normal 0-5 [facility] Comment on above: Performed By: #### L 100.0100, L501.2450, L500.4050 ####[facility] [address] [place], [address] Platelet mean volume (Bld) [Entitic vol] 9.7 fL Normal 6.2-12.0 [facility] Comment on above: Performed By: #### L 100.0100, L501.2450, L500.4050 ####[facility] [address] [place], [address] Platelets (Bld) [#/Vol] 237 10*3/uL Normal 150-450 [facility] Comment on above: Performed By: #### L 100.0100, L501.2450, L500.4050 ####[facility] [address] [place], [address] RBC (Bld) [#/Vol] 4.94 10*6/uL Normal 4.2-5.4 [facility] Comment on above: Performed By: #### L 100.0100, L501.2450, L500.4050 ####[facility] [address] [place], [address] RDW SD 42.5 fl Normal 35.1-43.9 [facility] Comment on above: Performed By: #### L 100.0100, L501.2450, L500.4050 ####[facility] [address] [place], [address] WBC (Bld) [#/Vol] 9.4 10*3/uL Normal 4.4-11.0 [facility] Comment on above: Performed By: #### L 100.0100, L501.2450, L500.4050 ####[facility] [address] [place], [address] Carbon dioxide measurementOr dered By: ED PROVIDER on 01-08-2025 CO2 [Moles/Vol] 29.0 mmol/L 21.0-32.0 [facility] Chloride measurementOrdered By: ED PROVIDER on 01-08-2025 Chloride [Moles/Vol] 100 mmol/L 98-107 [facility] [place] Comprehensive Metabolic Prof ilon 01-08-2025 Albumin [Mass/Vol] 3.0 g/dL Low 3.2-5.0 [facility] Comment on above: Performed By: #### L 100.0100, L501.2450, L500.4050 ####[facility] [address] [place], [address] Albumin/Globulin [Mass ratio] 0.6 {ratio} Low 0.9-2.4 [facility] Comment on above: Performed By: #### L 100.0100, L501.2450, L500.4050 ####[facility] [address] [place], [address] ALK P 98 U/L Normal 45-117 [facility] Comment on above: Performed By: #### L 100.0100, L501.2450, L500.4050 ####[facility] [address] [place], [address] ALT [Catalytic activity/Vol] 23 U/L Normal 13-56 [facility] Comment on above: Performed By: #### L 100.0100, L501.2450, L500.4050 ####[facility] [address] [place], [address] AST [Catalytic activity/Vol] 16 U/L Normal 15-37 [facility] Comment on above: Performed By: #### L 100.0100, L501.2450, L500.4050 ####[facility] [address] [place], [address] Bilirubin [Mass/Vol] 1.20 mg/dL High 0.20-1.00 [facility] [place] Comment on above: Result Comment: For patients on eltrombopag therapy, use of [place] TBIL is not recommended. Performed By: #### L 100.0100, L501.2450, L500.4050 ####[facility] [address] [place], [address] BUN/CRE 19.1 RATIO Normal 10-20 [facility] Comment on above: Performed By: #### L 100.0100, L501.2450, L500.4050 ####[facility] [address] [place], [address] CA,Total 9.5 mg/dL Normal 8.5-10.1 [facility] Comment on above: Performed By: #### L 100.0100, L501.2450, L500.4050 ####[facility] [address] [place], [address] Chloride [Moles/Vol] 100 mmol/L Normal 98-107 [facility] [place] Comment on above: Performed By: #### L 100.0100, L501.2450, L500.4050 ####[facility] [address] [place], [address] CO2 [Moles/Vol] 29.0 mmol/L Normal 21.0-32.0 [facility] Comment on above: Performed By: #### L 100.0100, L501.2450, L500.4050 ####[facility] [address] [place], [address] Creatinine [Mass/Vol] 0.73 mg/dL Normal 0.55-1.02 [facility] Comment on above: Result Comment: The validity of the calculated GFR GFRAA in patients over70 years has not been determined. Clinical correlation isessential. Performed By: #### L 100.0100, L501.2450, L500.4050 ####[facility] [address] [place], [address] ECRCL 110.63 ml/min Normal [facility] Comment on above: Performed By: #### L 100.0100, L501.2450, L500.4050 ####[facility] [address] [place], [address] EST GFR - AA 106 mL/min Normal >60 [facility] Comment on above: Result Comment: Afri can [place] GFR Calc Performed By: #### L 100.0100, L501.2450, L500.4050 ####[facility] [address] [place], [address] GAP 7 Normal 5-15 [facility] Comment on above: Performed By: #### L 100.0100, L501.2450, L500.4050 ####[facility] [address] [place], [address] GFR/1.73 sq M.predicted among non-blacks MDRD (S/P/Bld) [Vol rate/Area] 88 mL/min/{1.73_m2} Normal >60 [facility] Comment on above: Result Comment: Non- GFR Calc Performed By: #### L 100.0100, L501.2450, L500.4050 ####[facility] [address] [place], [address] Globulin (S) [Mass/Vol] 5.4 g/dL High 2.2-4.2 [facility] Comment on above: Performed By: #### L 100.0100, L501.2450, L500.4050 ####[facility] [address] [place], [address] Glucose [Mass/Vol] 119 mg/dL High 74-106 [facility] Comment on above: Result Comment: Fast ing Glucose result from 100 to 125 mg/dLsuggests IMPAIRED HOMEOSTASIS per A.D.A. criteria. Performed By: #### L 100.0100, L501.2450, L500.4050 ####[facility] [address] [place], [address] Potassium [Moles/Vol] 4.4 mmol/L Normal 3.5-5.1 [facility] Comment on above: Performed By: #### L 100.0100, L501.2450, L500.4050 ####[facility] [address] [place], [address] Sodium [Moles/Vol] 136 mmol/L Normal 136-145 [facility] Comment on above: Performed By: #### L 100.0100, L501.2450, L500.4050 ####[facility] [address] [place], [address] T PROT 8.4 g/dL High 6.4-8.2 [facility] Comment on above: Performed By: #### L 100.0100, L501.2450, L500.4050 ####[facility] [address] [place], [address] Urea nitrogen [Mass/Vol] 14 mg/dL Normal 7-18 [facility] Comment on above: Performed By: #### L 100.0100, L501.2450, L500.4050 ####[facility] [address] [place], [address] Emergency Department Summary on 01-08-2025 Emergency Department Summary Normal [facility] Eosinophil percentageOrdered By: ED PROVIDER on 01-08-2025 Eosinophils/100 WBC (Bld) 1.8 % 0-5 [facility] Epithelial cells.squamous LM Ql (Urine sed)Ordered By: Isaiah Villanueva on 01-08-2025 Epithelial cells.squamous LM.HPF (Urine sed) [#/Area] 0 /[HPF] 5-10 [facility] Erythrocyte distribution wid th ratioOrdered By: ED PROVIDER on 01-08-2025 Erythrocyte distribution width (RBC) [Ratio] 13.2 % 11.6-14.6 [facility] Erythrocyte distribution wid th standard deviationOrdered By: ED PROVIDER on 01-08-2025 Erythrocyte distribution width (RBC) [Entitic vol] 42.5 fL 35.1-43.9 [facility] Erythrocyte distribution width (RBC) [Ratio] 42.5 fl 35.1-43.9 [facility] Estimated glomerular filtrat ion rate (GFR) AmericanOrdered By: ED PROVIDER on 01-08-2025 Estimated GFR (MDRD) Amer 106 mL/min >60 [facility] Comment on above: GFR Calc Estimation of creatinine tapan aranceOrdered By: ED PROVIDER on 01-08-2025 Estimated Creatinine Clearance Calc 110.63 ml/min [facility] Glomerular filtration rate ( GFR) estimationOrdered By: ED PROVIDER on 01-08-2025 Estimated GFR (MDRD) Non-Af Amer 88 mL/min >60 [facility] Comment on above: Non- GFR Calc GFR/1.73 sq M.predicted among non-blacks MDRD (S/P/Bld) [Vol rate/Area] 88 mL/min/{1.73_m2} >60 [facility] Comment on above: Non- GFR Calc Glucose Ql (U)Ordered By: Ramón Villanueva on 01-08-2025 Urine Glucose (UA) Normal mg/dl Normal [facility] Glucose measurementOrdered B y: ED PROVIDER on 01-08-2025 Glucose [Mass/Vol] 119 mg/dL High 74-106 [facility] Comment on above: Fasting Glucose resu lt from 100 to 125 mg/dL suggests IMPAIRED HOMEOSTASIS per A.D.A. criteria. Hematocrit Auto (Bld) [Volum e fraction]Ordered By: ED PROVIDER on 01-08-2025 Hematocrit (Bld) [Volume fraction] 43.8 % 37-47 [facility] Hemoglobin measurementOrdere d By: ED PROVIDER on 01-08-2025 Hemoglobin (Bld) [Mass/Vol] 14.7 g/dL 12.0-15.0 [facility] Immature granulocytes/100 WB C Auto (Bld)Ordered By: ED PROVIDER on 01-08-2025 Immature granulocytes/100 WBC (Bld) 0.300 % 0.0-0.9 [facility] Comment on above: IG% - Immature Granu locytes (promyelocytes, myelocytes and metamyelocytes) > 1% indicates that a LEFT SHIFT is Present. Ketones Test strip Ql (U)Ord ered By: Isaiah Villanueva on 01-08-2025 Ketones Ql (U) Negative Negative [facility] Laboratory - Chemistry and C hemistry - challengeOrdered By: ED PROVIDER on 01-08-2025 AST [Catalytic activity/Vol] 16 U/L 15-37 [facility] Lipaseon 01-08-2025 Lipase [Catalytic activity/Vol] 18 U/L Low 73-393 [facility] Comment on above: Performed By: #### L 100.0100, L501.2450, L500.4050 ####[facility] [address] [place], [address] Lipase measurementOrdered By : ED PROVIDER on 01-08-2025 Lipase [Catalytic activity/Vol] 18 U/L Low 73-393 [facility] Lymphocytes Auto (Unsp spec) [#/Vol]Ordered By: ED PROVIDER on 01-08-2025 Lymphocytes (Bld) [#/Vol] 1.90 10*3/uL 0.83-4.51 [facility] Lymphocytes/100 WBC Auto (Un sp spec)Ordered By: ED PROVIDER on 01-08-2025 Lymphocytes/100 WBC (Bld) 20.3 % 19-41 [facility] MCV (mean corpuscular volume ) determinationOrdered By: ED PROVIDER on 01-08-2025 MCV (RBC) [Entitic vol] 88.7 fL 81-99 [facility] Mean corpuscular hemoglobin (MCH) determinationOrdered By: ED PROVIDER on 01-08-2025 MCH (RBC) [Entitic mass] 29.8 pg 27.0-32.0 [facility] Mean corpuscular hemoglobin concentration (MCHC) determinationOrdered By: ED PROVIDER on 01-08-2025 MCHC (RBC) [Mass/Vol] 33.6 g/dL 32-36 [facility] Mean platelet volume determi nationOrdered By: ED PROVIDER on 01-08-2025 Platelet mean volume (Bld) [Entitic vol] 9.7 fL 6.2-12.0 [facility] Microscopic analysis of urin e for red blood cells (RBC)Ordered By: Isaiah Villanueva on 01-08-2025 Microscopic analysis of urine for red blood cells (RBC) 0-5 SEEN /hpf 0-5 [facility] Urine RBC 0-5 SEEN /hpf 0-5 [facility] Monocyte percentageOrdered B y: ED PROVIDER on 01-08-2025 Monocytes/100 WBC (Bld) 6.3 % 0-10 [facility] Mucus LM Ql (Urine sed)Order ed By: Isaiah Villanueva on 01-08-2025 Mucus Ql (Urine sed) 1+ /hpf [facility] Neutrophil percentageOrdered By: ED PROVIDER on 01-08-2025 Neutrophils/100 WBC (Bld) 70.7 % High 47-70 [facility] Nitrite Test strip Ql (U)Ord ered By: Isaiah Villanueva on 01-08-2025 Nitrite Ql (U) Negative Negative [facility] Nucleated red blood cell per centageOrdered By: ED PROVIDER on 01-08-2025 Nucleated RBC/100 WBC (Bld) [Ratio] 0 % 0-5 [facility] Platelet countOrdered By: ED PROVIDER on 01-08-2025 Platelets (Bld) [#/Vol] 237 10*3/uL 150-450 [facility] Potassium measurementOrdered By: ED PROVIDER on 01-08-2025 Potassium [Moles/Vol] 4.4 mmol/L 3.5-5.1 [facility] Protein Test strip Ql (U)Ord ered By: Isaiah Villanueva on 01-08-2025 Protein Ql (U) 30 mg/dl High Negative [facility] RBC Auto (Bld) [#/Vol]Ordere d By: ED PROVIDER on 01-08-2025 RBC (Bld) [#/Vol] 4.94 10*6/uL 4.2-5.4 [facility] Serum anion gap measurementO rdered By: ED PROVIDER on 01-08-2025 Anion gap [Moles/Vol] 7 mmol/L 5-15 [facility] Serum globulin measurementOr dered By: ED PROVIDER on 01-08-2025 Globulin (S) [Mass/Vol] 5.4 g/dL High 2.2-4.2 [facility] Serum or plasma alanine del rio otransferase (ALT) measurementOrdered By: ED PROVIDER on 01-08-2025 ALT [Catalytic activity/Vol] 23 U/L 13-56 [facility] Serum or plasma albumin cass urement (mass/volume)Ordered By: ED PROVIDER on 01-08-2025 Albumin [Mass/Vol] 3.0 g/dL Low 3.2-5.0 [facility] Serum or plasma alkaline tre sphatase measurementOrdered By: ED PROVIDER on 01-08-2025 ALP [Catalytic activity/Vol] 98 U/L 45-117 [facility] Serum or plasma calcium cass urement (mass/volume)Ordered By: ED PROVIDER on 01-08-2025 Calcium [Mass/Vol] 9.5 mg/dL 8.5-10.1 [facility] Serum or plasma creatinine m easurement (mass/volume)Ordered By: ED PROVIDER on 01-08-2025 Creatinine [Mass/Vol] 0.73 mg/dL 0.55-1.02 [facility] Comment on above: The validity of the calculated GFR & GFRAA in patients over 70 years has not been determined. Clinical correlation is essential. Serum or plasma urea nitroge n measurement (mass/volume)Ordered By: ED PROVIDER on 01-08-2025 Urea nitrogen [Mass/Vol] 14 mg/dL 7-18 [facility] Sodium levelOrdered By: ED P VINITA on 01-08-2025 Sodium [Moles/Vol] 136 mmol/L 136-145 [facility] Squamous epithelial cells de tection in urine sediment by light microscopyOrdered By: Isaiah Villanueva on 01-08-2025 Epithelial cells.squamous LM Ql (Urine sed) 0-5 SEEN /hpf 5-10 [facility] Total proteinOrdered By: ED PROVIDER on 01-08-2025 Protein [Mass/Vol] 8.4 g/dL High 6.4-8.2 [facility] Urinalysis, Completeon 01-08 BACTERIA 2+ /hpf Normal None Seen [facility] Comment on above: Order Comment: COLOR OF URINE MAY AFFECT DIPSTICK RESULTS.CLEAN CATCH Performed By: #### L 400.0001 ####[facility] [address] [place], [place], [id number] EPI,SQUAMOUS 0-5 SEEN Normal 5-10 [facility] Comment on above: Order Comment: COLOR OF URINE MAY AFFECT DIPSTICK RESULTS.CLEAN CATCH Performed By: #### L 400.0001 ####[facility] [address] [place], [address] Mucus Ql (Urine sed) 1+ /hpf Normal [facility] Comment on above: Order Comment: COLOR OF URINE MAY AFFECT DIPSTICK RESULTS.CLEAN CATCH Performed By: #### L 400.0001 ####[facility] [address] [place], [address] RBC 0-5 SEEN Normal 0-5 [facility] Comment on above: Order Comment: COLOR OF URINE MAY AFFECT DIPSTICK RESULTS.CLEAN CATCH Performed By: #### L 400.0001 ####[facility] [address] [place], [place], [id number] WBC 5-10 SEEN Normal 0-5 [facility] Comment on above: Order Comment: COLOR OF URINE MAY AFFECT DIPSTICK RESULTS.CLEAN CATCH Performed By: #### L 400.0001 ####[facility] [address] [place], [place], [id number] Urine blood detectionOrdered By: Isaiah Villanueva on 01-08-2025 Urine Occult Blood 50 /ul High Negative [facility] Urine clarityOrdered By: Misty Villanueva on 01-08-2025 Clarity (U) Sl. Cloudy Clear [facility] Urine color determinationOrd ered By: Isaiah Villanueva on 01-08-2025 Color (U) Mirna Yellow [facility] Urine cultureOrdered By: Rose Santos on 01-08-2025 Bacteria identified Cx Nom (U) Positive Abnormal [facility] Urine glucose detectionOrder ed By: Isaiah Villanueva on 01-08-2025 Glucose Ql (U) Normal mg/dl Normal [facility] Urine leukocyte esterase det ection by dipstickOrdered By: Isaiah Villanueva on 01-08-2025 Leukocyte esterase Test strip Ql (U) 100 /ul High Negative [facility] Urine pHOrdered By: Isaiah ventura on 01-08-2025 pH (U) 6.0 [pH] 5.0 - 8.0 [facility] Urine sediment bacteria coun t by microscopy (number/high power field)Ordered By: Isaiah Villanueva on 01-08-2025 Bacteria LM.HPF (Urine sed) [#/Area] 2 /[HPF] None Seen [facility] Urine specific gravity measu rementOrdered By: Isaiah Villanueva on 01-08-2025 Specific gravity (U) [Rel density] 1.015 1.002-1.030 [facility] Urine urobilinogen measureme ntOrdered By: Isaiah Villanueva on 01-08-2025 Urobilinogen Ql (U) 4 mg/dl High Normal [facility] Urobilinogen Ql (U)Ordered B y: Isaiah Villanueva on 01-08-2025 Urobilinogen (U) [Mass/Vol] 4 mg/dL High Normal [facility] White blood cell (WBC) count Ordered By: ED PROVIDER on 01-08-2025 WBC (Bld) [#/Vol] 9.4 10*3/uL 4.4-11.0 [facility] White blood cell countOrdere d By: Isaiah Kay on 01-08-2025 Urine WBC 5-10 SEEN /hpf 0-5 [facility] White blood cell count 5-10 SEEN /hpf 0-5 [facility] Bacteria Ur Culton Bacteria identified Cx Nom (U) ORGANISM ID: 1 10,000 -<50,000 CFU/ml Normal urogenital marianela Normal [facility] Comment on above: Performed By: #### 6 30-4 ####[facility] LABCLIA [id number] [address] OF [facility] CNOVon 12-24-2024 CNOV Office Visit ([facility]WSTR ) -- UZMA MCDONALD ([id number]) 1970 F Date Time Provider Department 12/24/24 1:45 PM ISAÍAS RIBEIRO [facility] During your visit today, we recorded the following information about you: Temperature Pulse Respiration Blood pressure 97.8 degrees 80/minute 18/minute 126/68 Weight 110.6 kg Isaías Ribeiro APRN.DOCUMENT MANAGEMENT TECHNICIAN 12/24/2024 2:08 PM Signed Subjective HPI Nontoxic-appearing [...] CORONARY PLAT CHROMIUM BARE METAL STENT SYS [id number], 144 CM 06/26/2014 REMOVAL GALLBLADDER 2013 SUPRACERVICAL [...] or oc (more content not included)... [facility], [facility] (POC)on 2024 BILIRUBIN UA (POCT) Negative Negative [facility] CLARITY UA (POCT) Slightly Cloudy Cl [facility] COLOR UA (POCT) Dark yellow [facility] GLUCOSE UA (POCT) Negative Negative mg/dL [facility] Hemoglobin Ql (U) Moderate Abnormal Negative [facility] Interpretation and review of laboratory results Abnormal [facility] KETONE UA (POCT) Negative Negative mg/dL [facility] LEUKOCYTES UA (POCT) Trace Abnormal [facility] NITRITE UA (POCT) Negative Negative [facility] PH UA (POCT) 6.5 4.5 - 8.0 [facility] Protein Ql (U) 100 mg/dL Abnormal Negative [facility] SPECIFIC GRAVITY UA (POCT) 1.025 1.005 - 1.030 [facility] UROBILINOGEN UA (POCT) 1 Judith l E.U./dL [facility] Location:[facility], [address] [place] [address], [place], [place], [id number] [place] [address] POINT OF CARE [facility] 10-03-2024 JAIRON Telephone (DORIS) -- UZMA MCDONALD ([id number]) 1970 F Date Time Provider Department 10/03/24 SUSY SMITH During your visit today, we recorded the following information about you: Susy Smith APRN.CNP 10/03/2024 8:16 AM Signed Please let patient [...] Date Reviewed: 08/02/2024 Reviewed by: Isaías Ribeiro APRN.DOCUMENT MANAGEMENT TECHNICIAN - Fully Assessed Reason for Visit: Results [...] 30-34.9 [E66.811] 06/29/2022 Coronary artery disease of augustine heart with st*07/27/2022 Hyperlipidemia, mixed [E78.2] 07/27/2022 Hyperglycemia [R73.9] 07/28/2022 Dizziness [R42] 12/10/2022 Heart murmur [R01.1] 05/27/2022 History of anemia [Z86.2] 01/26/2023 Menorrhagia with irregular cycle [N92.1] 11/30/2022 Encounter Status:Closed by ZOEY PINEDA on 10/09/24 Normal [facility] BRITTANY SCREENING W TOMOon 09-29 BRITTANY SCREENING W ALFONSO * * *Final Report* * * DATE OF EXAM: Sep 29 2024 1:34PM WRW [id number] - BRITTANY SCREENING W ALFONSO / PROCEDURE REASON: Encounter for screening mammogram for breast cancer * * * * Physician Interpretation * * * * RESULT: [address] [place] [address] [place] [address] HISTORY: Patient is 54 years old and [...] Roni Kang M.D. Electronically signed on: 10/03/2024 Wire Photo Operator: PAU Transcribe Date/Time: Sep 29 2024 1:22P Dictated by: RONI KANG MD This examination was interpreted and the report reviewed and electronically signed by: RONI KANG MD on Oct 03 2024 1:30AM EST [id number] Normal [facility] Manish 09-25-2024 RICHY Telephone (RDXWS) -- UZMA MCDONALD ([id number]) 1970 F Date Time Provider Department 09/25/24 DAVID FINK During your visit today, we recorded the following information about you: Elizabeth Elizondo Mammo Tech 09/25/2024 1:42 PM Signed Could we have a mammogram screening order STAT! Pt schedule today at 1450. Thanks a Susy Coffman APRN.JAIRO 09/25/2024 2:23 PM Signed Ordered Allergies As of Date: 09/25/2024 (No Known Allergies) Date Reviewed: 08/02/2024 Reviewed by: Isaías Ribeiro APRN.DOCUMENT MANAGEMENT TECHNICIAN - Fully Assessed Reason for Visit: Orders [681] Primary Visit Diagnosis:Encounter for screening mammogram for breast cancer [Z12.31] Order(s):BRITTANY HAMILTON [[id number]] Order #: [id number] FUTURE Prescriptions as of 09/25/2024 - albuterol [...] 30-34.9 [E66.811] 06/29/2022 Coronary artery disease of augustine heart with st*07/27/2022 Hyperlipidemia, mixed [E78.2] 07/27/2022 Hyperglycemia [R73.9] 07/28/2022 Dizziness [R42] 12/10/2022 Heart murmur [R01.1] 05/27/2022 History of anemia [Z86.2] 01/26/2023 Menorrhagia with irregular cycle [N92.1] 11/30/2022 Encounter Status:Closed by [place] on 09/25/24 [facility] CNOVon 08-02-2024 CNOV Office Visit (UCWSTR ) -- UZMA MCDONALD ([id number]) 1970 F Date Time Provider Department 08/02/24 6:45 PM ISAÍAS RIBEIRO [facility] During your visit today, we recorded the following information about you: Temperature Pulse Respiration Blood pressure 98 degrees 93/minute 20/minute 119/76 Weight 111.5 kg Isaías Ribeiro, ROLL ICER MACHINE.DOCUMENT MANAGEMENT TECHNICIAN 08/02/2024 7:54 PM Signed Subjective HPI Nontoxic-appearing [...] CORONARY PLAT CHROMIUM BARE METAL STENT SYS [id number], 144 CM 06/26/2014 REMOVAL GALLBLADDER 2013 SUPRACERVICAL [...] (more content not included)... Normal [facility] 08-02-2024 [facility] Tele[facility] ([facility]) -- UZMA MCDONALD ([id number]) 1970 F Date Time Provider Department 08/02/24 ISAÍAS RIBEIRO [facility] During your visit today, we recorded the following information about you: Isaías Ribeiro APRN.DOCUMENT MANAGEMENT TECHNICIAN 08/02/2024 7:52 PM Signed Please inform patient that chest x-ray is negative. Continue plan of care as discussed during visit. Hazel Marshall LPN 08/02/2024 7:58 PM Signed Patient notified.Hazel Marshall LPN Allergies As of Date: 08/02/2024 (No Known Allergies) Date Reviewed: 08/02/2024 Reviewed by: Isaías Ribeiro APRN.DOCUMENT MANAGEMENT TECHNICIAN - Fully Assessed Reason for Visit: Results [...] 30-34.9 [E66.9] 06/29/2022 Coronary artery disease of augustine heart with st*07/27/2022 Hyperlipidemia, mixed [E78.2] 07/27/2022 Hyperglycemia [R73.9] 07/28/2022 Dizziness [R42] 12/10/2022 Heart murmur [R01.1] 05/27/2022 History of anemia [Z86.2] 01/26/2023 Menorrhagia with irregular cycle [N92.1] 11/30/2022 Encounter Status:Closed by HAZEL MARSHALL on 08/02/24 Normal [facility] XR CHEST 2V FRONTAL/LATon XR CHEST 2V [...] tissues: Unremarkable. IMPRESSION: No acute radiographic abnormality. Wire Photo Operator: [facility] Transcribe Date/Time: Aug 02 2024 7:48P Dictated by : MARIA ELENA JONES MD This examination was interpreted and the report reviewed and electronically signed by: MARIA ELENA JONES MD on Aug 02 2024 7:48PM EST [id number] Normal [facility] XR Chest PA and Lateralon IMPRESSION: No acute radiographic abnormality. Wire Photo Operator: [facility] Transcribe Date/Time: Aug 02 2024 [...] soft tissues: Unremarkable. DIVISION OF RADIOLOGY Provider, [facility] - 08/02/2024 * * *Final Report* * [...] Unremarkable. IMPRESSION IMPRESSION: No acute radiographic abnormality. Wire Photo Operator: P[facility] Transcribe Date/Time: Aug 02 2024 7:48P Dictated by : MARIA ELENA JONES MD This examination was interpreted and the report reviewed and electronically signed by: MARIA ELENA JONES MD on Aug 02 2024 7:48PM EST [facility] Radiology Study observation (narrative) [facility] XR Chest PA and LateralOrder ed By: Ccf Provider on 08-02-2024 [facility] CNOVon 04-18-2024 CNOV Office Visit (WSTR ) -- UZMA MCDONALD ([id number]) 1970 F Date Time Provider Department 04/18/24 12:15 PM JUANA LINTON [facility] During your visit today, we recorded the following information about you: Temperature Pulse Respiration Blood pressure 98.5 degrees 98/minute 16/minute 118/68 Weight 112.4 kg Juana Linton APRN.CNP 04/18/2024 1:22 PM Signed This note was created using NoteWriter. Subjective Uzma alicea Harry is a 53 year old female. 53 [...] history is provided by the patient. No languages and literature instructor was used. URI She complains of cough. [...] lens implant PAST SURGICAL HISTORY OF 03/31/2021 [employer] stent REBEL CORONARY PLAT CHROMIUM BARE METAL STENT SYS [id number], 144 CM 06/26/2014 REMOVAL GALLBLADDER 2013 SUPRACERVICAL [...] for enviro (more content not included)... Normal [facility] CNOVon 03-23-2024 CNOV Office Visit ([facility]WSTR ) -- HARRYUZMA ([id number]) 1970 F Date Time Provider Department 03/23/24 10:30 AM CINTHYA VAUGHAN [facility] During your visit today, we recorded [...] Discussed expected course of illness Cinthya Vaughan APRN.DOCUMENT MANAGEMENT TECHNICIAN ACUTE BRONCHITIS: You have acute bronchitis. This [...] 3 days of proper treatment. Cinthya Vaughan APRN.DOCUMENT MANAGEMENT TECHNICIAN 03/23/2024 11:07 AM Signed Subjective Cough Associated [...] CORONARY PLAT CHROMIUM BARE METAL STENT SYS [id number], 144 CM 06/26/2014 REMOVAL GALLBLADDER 2013 SUPRACERVICAL [...] 4 day (more content not included)... Normal [facility] BRITTANY SCREENINGon 09-17-2023 [facility] XR Hand - right PA and Later al and Obliqueon 01-28-2023 IMPRESSION: Negative 3 views of the right hand. Wire Photo Operator: LING Transcribe Date/Time: Jan 28 2023 8:19A Dictated by : BAILEE SYKES MD This examination was interpreted and the report reviewed and electronically signed by: BAILEE SYKES MD on Jan 28 2023 8:22AM [facility] DIVISION OF RADIOLOGY * * *Final Report* [...] tissue swelling. DIVISION OF RADIOLOGY Provider, Wilman tolentino [place] - 01/28/2023 * * *Final Report* * [...] Negative 3 views of the right hand. Wire Photo Operator: LING Transcribe Date/Time: Jan 28 2023 8:19A Dictated by : BAILEE SYKES MD This examination was interpreted and the report reviewed and electronically signed by: BAILEE SYKES MD on Jan 28 2023 8:22AM EST [facility] XR Hand - right PA and Later al and ObliqueOrdered By: Ccf Provider on 01-28-2023 [facility] No Panel Informationon 01-26 Radiology Study observation (narrative) [facility] XR ELBOW GENERAL 2V AP/LAT R IGHTon 01-26-2023 [facility] XR Elbow - right AP and Late ralon 01-26-2023 IMPRESSION: Mild sof t tissue calcification. Please clinically correlate. Wire Photo Operator: [facility] Transcribe Date/Time: Jan 26 2023 4:49P Dictated by : BAILEE SYKES MD This examination was interpreted and the report reviewed and electronically signed by: BAILEE SYKES MD on Jan 26 2023 4:51PM [facility] DIVISION OF RADIOLOGY * * *Final Report* [...] the lateral epicondyle. DIVISION OF RADIOLOGY Provider, [facility] Leora Chew - 01/26/2023 * * *Final Report* * [...] Mild soft tissue calcification. Please clinically correlate. Wire Photo Operator: [facility] Transcribe Date/Time: Jan 26 2023 4:49P Dictated by : BAILEE SYKES MD This examination was interpreted and the report reviewed and electronically signed by: BAILEE SYKES MD on Jan 26 2023 4:51PM [facility] Basophil percentageOrdered B y: Dr. Michel on 12-08-2022 Bilirubin [Mass/Vol] 0.40 mg/dL 0.20-1.00 [facility] Comment on above: For patients on eltr ombopag therapy, use of Dimension [place] TBIL is not recommended. Cholesterol [Mass/Vol] 161 mg/dL <200 [facility] Comment on above: <200 mg/dL Desirable 200-240 mg/dL Borderline >240 mg/dL High Risk Protein [Mass/Vol] 7.7 g/dL 6.4-8.2 [facility] Triglyceride [Mass/Vol] 182 mg/dL <199 [facility] Comment on above: The drugs N-Acetylcy steine and Metamizole may falsely depress this assay.Serum Triglycerides Reference Interval Normal <150 mg/dL Borderline high 150 - 199 mg/dL High 200 - 499 mg/dL Very High > or = 500 mg/dL Direct bilirubinOrdered By: Dr. Michel on 12-08-2022 Bilirubin.direct [Mass/Vol] 0.11 mg/dL 0.00-0.30 [facility] Laboratory - Chemistry and C hemistry - challengeOrdered By: Dr. Michel on 12-08-2022 ALP [Catalytic activity/Vol] 114 U/L 45-117 [facility] ALT [Catalytic activity/Vol] 46 U/L 13-56 [facility] Globulin (S) [Mass/Vol] 4.1 g/dL 2.2-4.2 [facility] Serum or plasma albumin cass urement (mass/volume)Ordered By: Dr. Michel on 12-08-2022 Albumin [Mass/Vol] 3.6 g/dL 3.2-5.0 [facility] Serum or plasma cholesterol in HDL measurement (mass/volume)Ordered By: Dr. Michel on 12-08-2022 Cholesterol in HDL [Mass/Vol] 37 mg/dL >40 [facility] Comment on above: The drugs N-Acetylcy steine and Metamizole may falsely depress this assay. Reference Range HDL <40 mg/dL Low HDL Cholesterol HDL >or= 60 mg/dL High HDL Cholesterol Serum or plasma cholesterol in VLDL measurement (mass/volume)Ordered By: Dr. Michel on 12-08-2022 Cholesterol in VLDL [Mass/Vol] 36 mg/dL 5-40 [facility] Serum or plasma low density lipoprotein (LDL) cholesterol measurement (mass/volume)Ordered By: Dr. Michel on 12-08-2022 Cholesterol in LDL [Mass/Vol] 88 mg/dL 0-130 [facility] Thin prep Papanicolaou smear with manual screeningOrdered By: Dr. Michel on 12-08-2022 Thin prep Papanicolaou smear with manual screening 23 U/L 15-37 [facility] Basophil percentageOrdered B y: Cristin Pettit on 11-30-2022 Chloride [Moles/Vol] 105 mmol/L 98-107 [facility] Glucose [Mass/Vol] 171 mg/dL 74-106 [facility] Comment on above: Fasting Glucose resu lt greater than or equal to 126 mg/dL suggests DIABETES MELLITUS per A.D.A. criteria. Potassium [Moles/Vol] 3.8 mmol/L 3.5-5.1 [facility] Sodium [Moles/Vol] 140 mmol/L 136-145 [facility] WBC (Bld) [#/Vol] 6.3 10*3/uL 4.4-11.0 [facility] Blood erythrocytes count (nu mber/volume)Ordered By: Cristin Pettit on 11-30-2022 RBC (Bld) [#/Vol] 4.88 10*6/uL 4.2-5.4 [facility] Blood hemoglobin measurement (mass/volume)Ordered By: Cristin Pettit on 11-30-2022 Hemoglobin (Bld) [Mass/Vol] 15.0 g/dL 12.0-15.0 [facility] Blood platelet mean volumeOr dered By: Cristin Pettit on 11-30-2022 Platelet mean volume (Bld) [Entitic vol] 9.6 fL 6.2-12.0 [facility] Determination of erythrocyte mean corpuscular volume (MCV)Ordered By: Cristin Pettit on 11-30-2022 MCV (RBC) [Entitic vol] 91.6 fL 81-99 [facility] Hematocrit Auto (Bld) [Volum e fraction]Ordered By: Cristin Pettit on 11-30-2022 Hematocrit (Bld) [Volume fraction] 44.7 % 37-47 [facility] Laboratory - Chemistry and C hemistry - challengeOrdered By: Cristin Pettit on 11-30-2022 CO2 [Moles/Vol] 29.0 mmol/L 21.0-32.0 [facility] Magnesium [Mass/Vol] 2.1 mg/dL 1.6-2.6 [facility] Urea nitrogen/Creatinine [Mass ratio] 13.7 mg/mg 10-20 [facility] Laboratory - Hematology and Cell countsOrdered By: Cristin Pettit on 11-30-2022 Erythrocyte distribution width (RBC) [Entitic vol] 45.7 fL 35.1-43.9 [facility] Erythrocyte distribution width (RBC) [Ratio] 13.5 % 11.6-14.6 [facility] MCH (RBC) [Entitic mass] 30.7 pg 27.0-32.0 [facility] MCHC Auto (RBC) [Mass/Vol]Or dered By: Cristin Pettit on 11-30-2022 MCHC (RBC) [Mass/Vol] 33.6 g/dL 32-36 [facility] No Panel InformationOrdered By: Cristin Pettit on 11-30-2022 Estimated GFR (MDRD) Amer 107 mL/min >60 [facility] Comment on above: GFR Calc Estimated GFR (MDRD) Non-Af Amer 89 mL/min >60 [facility] Comment on above: Non- GFR Calc Thyroid Stimulating Hormone (TSH) 2.02 uIU/mL 0.358-3.74 [facility] Platelets bldOrdered By: Prieto Pettit on 11-30-2022 Platelets (Bld) [#/Vol] 215 10*3/uL 150-450 [facility] Serum or plasma calcium cass urement (mass/volume)Ordered By: Cristin Pettit on 11-30-2022 Calcium [Mass/Vol] 8.9 mg/dL 8.5-10.1 [facility] Serum or plasma creatinine m easurement (mass/volume)Ordered By: Cristin Pettit on 11-30-2022 Creatinine [Mass/Vol] 0.73 mg/dL 0.55-1.02 [facility] Comment on above: The validity of the calculated GFR & GFRAA in patients over 70 years has not been determined. Clinical correlation is essential. Serum or plasma urea nitroge n measurement (mass/volume)Ordered By: Cristin Pettit on 11-30-2022 Urea nitrogen [Mass/Vol] 10 mg/dL 7-18 [facility] Thin prep Papanicolaou smear with manual screeningOrdered By: Cristin Pettit on 11-30-2022 Thin prep Papanicolaou smear with manual screening 6 5-15 [facility] BRITTANY SCREENINGon 07-30-2022 [facility] Basophil percentageon 2021 WBC (Bld) [#/Vol] 7.1 10*3/uL 4.4-11.0 [facility] Work Phone: Blood erythrocytes count (nu mber/volume)on 05-29-2022 RBC (Bld) [#/Vol] 4.36 10*6/uL 4.2-5.4 [facility] Work Phone: Blood hemoglobin measurement (mass/volume)on 05-29-2022 Hemoglobin (Bld) [Mass/Vol] 10.9 g/dL 12.0-15.0 [facility] Work Phone: Blood platelet mean volumeon 05-29-2022 Platelet mean volume (Bld) [Entitic vol] 10.1 fL 6.2-12.0 [facility] Work Phone: Determination of erythrocyte mean corpuscular volume (MCV)on 05-29-2022 MCV (RBC) [Entitic vol] 81.0 fL 81-99 [facility] Work Phone: Glucose Glucometer (BldC) [M ass/Vol]on 05-29-2022 Glucose [Mass/Vol] 167 mg/dL 74-106 [facility] Work Phone: Comment on above: MANAGEMENT OF PATIEN T CARE PER NURSING PROTOCOL Hematocrit Auto (Bld) [Volum e fraction]on 05-29-2022 Hematocrit (Bld) [Volume fraction] 35.3 % 37-47 [facility] Work Phone: Laboratory - Hematology and Cell countson 05-29-2022 Erythrocyte distribution width (RBC) [Entitic vol] 52.6 fL 35.1-43.9 [facility] Work Phone: Erythrocyte distribution width (RBC) [Ratio] 17.8 % 11.6-14.6 [facility] Work Phone: MCH (RBC) [Entitic mass] 25.0 pg 27.0-32.0 [facility] Work Phone: MCHC Auto (RBC) [Mass/Vol]on 05-29-2022 MCHC (RBC) [Mass/Vol] 30.9 g/dL 32-36 [facility] Work Phone: Platelets bldon 05-29-2022 Platelets (Bld) [#/Vol] 176 10*3/uL 150-450 [facility] Work Phone: Basophil percentageon 2021 Chloride [Moles/Vol] 107 mmol/L 98-107 [facility] [place] Work Phone: Glucose [Mass/Vol] 97 mg/dL 74-106 [facility] Work Phone: Potassium [Moles/Vol] 4.1 mmol/L 3.5-5.1 [facility] Work Phone: Sodium [Moles/Vol] 139 mmol/L 136-145 [facility] Work Phone: INR in Blood by Coagulation assayon 05-25-2022 INR Coag (Bld) [Relative time] 1.1 {INR} [facility] Work Phone: Laboratory - Chemistry and C hemistry - challengeon 05-25-2022 CO2 [Moles/Vol] 25.0 mmol/L 21.0-32.0 [facility] Work Phone: Urea nitrogen/Creatinine [Mass ratio] 14.7 mg/mg 10-20 [facility] Work Phone: Magnesium [Mass/Vol] 2.1 mg/dL 1.6-2.6 [facility] [place] Work Phone: Laboratory - Coagulationon 0 05-25-2022 aPTT Coag (Bld) [Time] 27.4 s 24.1-36.2 [facility] Work Phone: PT Coag (PPP) [Time] 13.8 s 11.7-14.9 [facility] [place] Work Phone: No Panel Informationon 05-25 Estimated GFR (MDRD) Amer 117 mL/min >60 [facility] Work Phone: Comment on above: GFR Calc Estimated GFR (MDRD) Non-Af Amer 97 mL/min >60 [facility] Work Phone: Comment on above: Non- GFR Calc Serum or plasma calcium cass urement (mass/volume)on 05-25-2022 Calcium [Mass/Vol] 8.7 mg/dL 8.5-10.1 [facility] Work Phone: Serum or plasma creatinine m easurement (mass/volume)on 05-25-2022 Creatinine [Mass/Vol] 0.68 mg/dL 0.55-1.02 [facility] Work Phone: Comment on above: The validity of the calculated GFR & GFRAA in patients over 70 years has not been determined. Clinical correlation is essential. Serum or plasma urea nitroge n measurement (mass/volume)on 05-25-2022 Urea nitrogen [Mass/Vol] 10 mg/dL 7-18 [facility] Work Phone: Thin prep Papanicolaou smear with manual screeningon 05-25-2022 Thin prep Papanicolaou smear with manual screening 7 5-15 [facility] Work Phone: XR CHEST 2V FRONTAL/LATon [facility] XR Chest PA and Lateralon IMPRESSION: No acute radiographic abnormality. Wire Photo Operator: [email or web address] Transcribe Date/Time: Apr 23 2022 11:16A Dictated [...] Unremarkable. ZZZ_DO_[id number]_ USE_DIVISIO N OF RADIOLOGY Provider, [facility] - 04/23/2022 * * *Final Report* [...] Unremarkable. IMPRESSION IMPRESSION: No acute radiographic abnormality. Wire Photo Operator: [email or web address] Transcribe Date/Time: Apr 23 2022 11:16A Dictated by : MARCELLA TORRES MD This examination was interpreted and the report reviewed and electronically signed by: MARCELLA TORRES MD on Apr 23 2022 11:18AM EST [facility] Radiology Study observation (narrative) [facility] XR Chest PA and LateralOrder ed By: [facility] Provider on 04-23-2022 [facility] Vital Signs Date Time Vital Sign Value Performing Clinician Facility 07-12-2025 09:28-0400 Body height 170.[address] David Fink MD Work Phone: [facility] 07-12-2025 09:28-0400 Body mass index (BMI) [Ratio] 33.5 kg/m2 Dr. David Fink MD Work Phone: [facility] 07-12-2025 09:28-0400 Body temperature 98.4 [degF] Dr. David Fink MD Work Phone: [facility] 07-12-2025 09:28-0400 Body weight 97.[address] David Fink MD Work Phone: [facility] 07-12-2025 09:28-0400 Diastolic blood pressure 75 mm[Hg] Dr. David Fink MD Work Phone: [facility] 07-12-2025 09:28-0400 Heart rate 76 /min Dr. David Fink MD Work Phone: 3(914)857-949276 [place] [address] 07-12-2025 09:28-0400 Respiratory rate 18 /min Dr. David Fink MD Work Phone: 7(245)590-651748 [place] [address] 07-12-2025 09:28-0400 SaO2% (BldA) [Mass fraction] 100 % Dr. David Fink MD Work Phone: 1(106)525-813448 [place] [address] 07-12-2025 09:28-0400 Systolic blood pressure 112 mm[Hg] Dr. David Fink MD Work Phone: 4(953)990-151648 [place] [address] 06-28-2025 09:44-0400 Body height 170.[address] David Fink MD Work Phone: 5(946)227-631948 [place] [address] 06-28-2025 09:44-0400 Body mass index (BMI) [Ratio] 32.5 kg/m2 Dr. David Fink MD Work Phone: 5(512)750-457748 [place] [address] 06-28-2025 09:44-0400 Body temperature 96.9 [degF] Dr. David Fink MD Work Phone: 2(344)341-012348 [place] [address] 06-28-2025 09:44-0400 Body weight 94.[address] David Fink MD Work Phone: 4(830)710-651648 [place] [address] 06-28-2025 09:44-0400 Diastolic blood pressure 66 mm[Hg] Dr. David Fink MD Work Phone: 5(396)939-386148 [place] [address] 06-28-2025 09:44-0400 Heart rate 76 /min Dr. David Fink MD Work Phone: 7(035)704-895148 [place] [address] 06-28-2025 09:44-0400 Respiratory rate 18 /min Dr. David Fink MD Work Phone: 2(622)612-487948 [place] [address] 06-28-2025 09:44-0400 SaO2% (BldA) [Mass fraction] 99 % Dr. David Fink MD Work Phone: 4(633)849-170148 [place] [address] 06-28-2025 09:44-0400 Systolic blood pressure 108 mm[Hg] Dr. David Fink MD Work Phone: 1(226)725-813148 [place] [address] 06-14-2025 10:18-0400 Body height 170.[address] David Fink MD Work Phone: 9(667)939-849648 [place] [address] 06-14-2025 10:18-0400 Body mass index (BMI) [Ratio] 33.4 kg/m2 Dr. David Fink MD Work Phone: 6(720)100-033848 [place] [address] 06-14-2025 10:18-0400 Body temperature 98.2 [degF] Dr. David Fink MD Work Phone: 0(465)527-977848 [place] [address] 06-14-2025 10:18-0400 Body weight 96.[address] David Fink MD Work Phone: 0(647)472-823148 [place] [address] 06-14-2025 10:18-0400 Diastolic blood pressure 64 mm[Hg] Dr. David Fink MD Work Phone: 6(955)769-671248 [place] [address] 06-14-2025 10:18-0400 Heart rate 80 /min Dr. David Fink MD Work Phone: 3(938)468-903148 [place] [address] 06-14-2025 10:18-0400 Respiratory rate 18 /min Dr. David Fink MD Work Phone: 9(920)063-243848 [place] [address] 06-14-2025 10:18-0400 SaO2% (BldA) [Mass fraction] 100 % Dr. David Fink MD Work Phone: 3(367)447-037548 [place] [address] 06-14-2025 10:18-0400 Systolic blood pressure 102 mm[Hg] Dr. David Fink MD Work Phone: 3(623)671-086348 [place] [address] 06-07-2025 09:27-0400 Body height 170.[address] David Fink MD Work Phone: 3(638)372-991048 [place] [address] 06-07-2025 09:27-0400 Body mass index (BMI) [Ratio] 32.9 kg/m2 Dr. David Fink MD Work Phone: 7(694)584-564548 [place] [address] 06-07-2025 09:27-0400 Body temperature 98.2 [degF] Dr. David Fink MD Work Phone: 9(817)977-962576 [place] [address] 06-07-2025 09:27-0400 Body weight 95.[address] David Fink MD Work Phone: 6(468)520-179048 [place] [address] 06-07-2025 09:27-0400 Diastolic blood pressure 69 mm[Hg] Dr. David Fink MD Work Phone: 7(915)363-111048 [place] [address] 06-07-2025 09:27-0400 Heart rate 77 /min Dr. David Fink MD Work Phone: 7(591)036-249648 [place] [address] 06-07-2025 09:27-0400 Respiratory rate 16 /min Dr. David Fink MD Work Phone: 9(272)754-378848 [place] [address] 06-07-2025 09:27-0400 SaO2% (BldA) [Mass fraction] 99 % Dr. David Fink MD Work Phone: 3(933)247-995048 [place] [address] 06-07-2025 09:27-0400 Systolic blood pressure 107 mm[Hg] Dr. David Fink MD Work Phone: 0(217)542-881948 [place] [address] 05-31-2025 10:16-0400 Body height 170.[address] David Fink MD Work Phone: 8(971)516-211448 [place] [address] 05-31-2025 10:16-0400 Body mass index (BMI) [Ratio] 32.4 kg/m2 Dr. David Fink MD Work Phone: 1(204)083-716048 [place] [address] 05-31-2025 10:16-0400 Body temperature 98.1 [degF] Dr. David Fink MD Work Phone: 6(965)733-785548 [place] [address] 05-31-2025 10:16-0400 Body weight 93.[address] David Fink MD Work Phone: 4(351)594-679348 [place] [address] 05-31-2025 10:16-0400 Diastolic blood pressure 71 mm[Hg] Dr. David Fink MD Work Phone: 2(906)441-806948 [place] [address] 05-31-2025 10:16-0400 Heart rate 82 /min Dr. David Fink MD Work Phone: 7(245)808-443876 [place] [address] 05-31-2025 10:16-0400 Respiratory rate 16 /min Dr. David Fink MD Work Phone: 5(715)759-597748 [place] [address] 05-31-2025 10:16-0400 SaO2% (BldA) [Mass fraction] 99 % Dr. David Fink MD Work Phone: 5(882)818-435348 [place] [address] 05-31-2025 10:16-0400 Systolic blood pressure 107 mm[Hg] Dr. David Fink MD Work Phone: 5(458)367-141148 [place] [address] 05-17-2025 09:52-0400 Body height 170.[address] David Fink MD Work Phone: 4(332)032-483648 [place] [address] 05-17-2025 09:46-0400 Body mass index (BMI) [Ratio] 33.2 kg/m2 Dr. David Fink MD Work Phone: 8(719)452-450248 [place] [address] 05-17-2025 09:46-0400 Body temperature 96.9 [degF] Dr. David Fink MD Work Phone: 5(387)295-774748 [place] [address] 05-17-2025 09:46-0400 Body weight 96.[address] David Fink MD Work Phone: 3(230)920-252448 [place] [address] 05-17-2025 09:46-0400 Diastolic blood pressure 68 mm[Hg] Dr. David Fink MD Work Phone: 1(294)909-949848 [place] [address] 05-17-2025 09:46-0400 Heart rate 80 /min Dr. David Fink MD Work Phone: 5(231)988-036648 [place] [address] 05-17-2025 09:46-0400 Respiratory rate 18 /min Dr. David Fink MD Work Phone: 9(258)293-009248 [place] [address] 05-17-2025 09:46-0400 SaO2% (BldA) [Mass fraction] 95 % Dr. David Fink MD Work Phone: 4(456)303-632448 [place] [address] 05-17-2025 09:46-0400 Systolic blood pressure 102 mm[Hg] Dr. David Fink MD Work Phone: 6(705)932-997548 [place] [address] 05-10-2025 10:12-0400 Body height 170.[address] David Fink MD Work Phone: 0(451)928-153048 [place] [address] 05-10-2025 10:12-0400 Body mass index (BMI) [Ratio] 33.5 kg/m2 Dr. David Fink MD Work Phone: 0(118)313-544548 [place] [address] 05-10-2025 10:12-0400 Body temperature 98.3 [degF] Dr. David Fink MD Work Phone: 5(642)511-197348 [place] [address] 05-10-2025 10:12-0400 Body weight 97.[address] David Fink MD Work Phone: 8(917)572-654548 [place] [address] 05-10-2025 10:12-0400 Diastolic blood pressure 72 mm[Hg] Dr. David Fink MD Work Phone: 4(976)255-860448 [place] [address] 05-10-2025 10:12-0400 Heart rate 76 /min Dr. David Fink MD Work Phone: 5(028)493-372648 [place] [address] 05-10-2025 10:12-0400 Respiratory rate 18 /min Dr. David Fink MD Work Phone: 1(409)657-867448 [place] [address] 05-10-2025 10:12-0400 SaO2% (BldA) [Mass fraction] 97 % Dr. David Fink MD Work Phone: 9(699)038-367148 [place] [address] 05-10-2025 10:12-0400 Systolic blood pressure 112 mm[Hg] Dr. David Fink MD Work Phone: 0(144)542-172548 [place] [address] 05-04-2025 22:14-0400 Body temperature 99.2 [degF] Dr. David Fink MD Work Phone: 4(843)407-142048 [place] [address] 05-04-2025 22:14-0400 Diastolic blood pressure 71 mm[Hg] Dr. David Fink MD Work Phone: 6(604)245-163548 [place] [address] 05-04-2025 22:14-0400 Heart rate 91 /min Dr. David Fink MD Work Phone: 4(909)690-126948 [place] [address] 05-04-2025 22:14-0400 Respiratory rate 17 /min Dr. David Fink MD Work Phone: 9(223)678-102748 [place] [address] 05-04-2025 22:14-0400 SaO2% (BldA) [Mass fraction] 96 % Dr. David Fink MD Work Phone: 4(994)380-434148 [place] [address] 05-04-2025 22:14-0400 Systolic blood pressure 104 mm[Hg] Dr. David Fink MD Work Phone: 1(055)302-771248 [place] [address] 05-04-2025 17:59-0400 Body height 170.[address] David Fink MD Work Phone: 1(440)609-847748 [place] [address] 05-04-2025 17:59-0400 Body mass index (BMI) [Ratio] 33.3 kg/m2 Dr. David Fink MD Work Phone: 6(654)760-019348 [place] [address] 05-04-2025 17:59-0400 Body weight 96.[address] David Fink MD Work Phone: 5(624)559-688048 [place] [address] 05-03-2025 11:01-0400 Body height 170.[address] David Fink MD Work Phone: 5(474)183-273448 [place] [address] 05-03-2025 11:01-0400 Body mass index (BMI) [Ratio] 33.5 kg/m2 Dr. David Fink MD Work Phone: 2(967)455-950548 [place] [address] 05-03-2025 11:01-0400 Body temperature 98.7 [degF] Dr. David Fink MD Work Phone: 3(833)198-238948 [place] [address] 05-03-2025 11:01-0400 Body weight 97.[address] David Fink MD Work Phone: 5(492)193-334048 [place] [address] 05-03-2025 11:01-0400 Diastolic blood pressure 71 mm[Hg] Dr. David Fink MD Work Phone: 0(207)294-234248 [place] [address] 05-03-2025 11:01-0400 Heart rate 85 /min Dr. David Fink MD Work Phone: 4(036)113-288148 [place] [address] 05-03-2025 11:01-0400 Respiratory rate 18 /min Dr. David Fink MD Work Phone: 2(743)083-879148 [place] [address] 05-03-2025 11:01-0400 SaO2% (BldA) [Mass fraction] 99 % Dr. David Fink MD Work Phone: 0(639)543-534048 [place] [address] 05-03-2025 11:01-0400 Systolic blood pressure 107 mm[Hg] Dr. David Fink MD Work Phone: 7(225)691-508648 [place] [address] 04-28-2025 23:42-0400 Body temperature 99.7 [degF] Dr. David Fink MD Work Phone: 8(246)962-897848 [place] [address] 04-28-2025 23:42-0400 Diastolic blood pressure 57 mm[Hg] Dr. David Fink MD Work Phone: 4(240)188-055548 [place] [address] 04-28-2025 23:42-0400 Heart rate 88 /min Dr. David Fink MD Work Phone: 5(965)676-837748 [place] [address] 04-28-2025 23:42-0400 Respiratory rate 15 /min Dr. David Fink MD Work Phone: 8(961)775-000948 [place] [address] 04-28-2025 23:42-0400 SaO2% (BldA) [Mass fraction] 99 % Dr. David Fink MD Work Phone: 7(072)688-026048 [place] [address] 04-28-2025 23:42-0400 Systolic blood pressure 115 mm[Hg] Dr. David Fink MD Work Phone: 7(535)255-788648 [place] [address] 04-28-2025 19:29-0400 Body height 170.[address] David Fink MD Work Phone: 2(202)370-523748 [place] [address] 04-28-2025 19:29-0400 Body mass index (BMI) [Ratio] 34.4 kg/m2 Dr. David Fink MD Work Phone: 7(031)822-908048 [place] [address] 04-28-2025 19:29-0400 Body weight 99.[address] David Fink MD Work Phone: 2(514)693-895748 [place] [address] 04-26-2025 09:19-0400 Body height 170.[address] David Fink MD Work Phone: 0(274)225-053148 [place] [address] 04-26-2025 09:19-0400 Body mass index (BMI) [Ratio] 34 kg/m2 Dr. David Fink MD Work Phone: 3(141)964-956148 [place] [address] 04-26-2025 09:19-0400 Body temperature 97.4 [degF] Dr. David Fink MD Work Phone: 8(966)170-626748 [place] [address] 04-26-2025 09:19-0400 Body weight 98.[address] David Fink MD Work Phone: 4(041)959-329848 [place] [address] 04-26-2025 09:19-0400 Diastolic blood pressure 74 mm[Hg] Dr. David Fink MD Work Phone: 9(410)109-133748 [place] [address] 04-26-2025 09:19-0400 Heart rate 64 /min Dr. David Fink MD Work Phone: 3(195)077-994548 [place] [address] 04-26-2025 09:19-0400 Respiratory rate 16 /min Dr. David Fink MD Work Phone: 7(951)707-076348 [place] [address] 04-26-2025 09:19-0400 SaO2% (BldA) [Mass fraction] 95 % Dr. David Fink MD Work Phone: 2(606)243-813848 [place] [address] 04-26-2025 09:19-0400 Systolic blood pressure 116 mm[Hg] Dr. David Fink MD Work Phone: 4(217)089-250548 [place] [address] 04-19-2025 09:06-0400 Body height 170.[address] David Fink MD Work Phone: 6(910)082-399348 [place] [address] 04-19-2025 09:06-0400 Body mass index (BMI) [Ratio] 34.9 kg/m2 Dr. David Fink MD Work Phone: 0(693)106-936548 [place] [address] 04-19-2025 09:06-0400 Body temperature 98.5 [degF] Dr. David Fink MD Work Phone: 9(943)411-601248 [place] [address] 04-19-2025 09:06-0400 Body weight 101.[address] David Fink MD Work Phone: 2(443)378-777448 [place] [address] 04-19-2025 09:06-0400 Diastolic blood pressure 74 mm[Hg] Dr. David Fink MD Work Phone: 5(579)912-037348 [place] [address] 04-19-2025 09:06-0400 Heart rate 80 /min Dr. David Fink MD Work Phone: 1(169)386-528148 [place] [address] 04-19-2025 09:06-0400 Respiratory rate 16 /min Dr. David Fink MD Work Phone: 6(065)800-351448 [place] [address] 04-19-2025 09:06-0400 SaO2% (BldA) [Mass fraction] 94 % Dr. David Fink MD Work Phone: 2(576)360-014648 [place] [address] 04-19-2025 09:06-0400 Systolic blood pressure 131 mm[Hg] Dr. David Fink MD Work Phone: 7(997)642-944948 [place] [address] 04-18-2025 10:46-0400 Body height 170.[address] David Fink MD Work Phone: 4(142)547-628648 [place] [address] 04-18-2025 10:46-0400 Body mass index (BMI) [Ratio] 34.9 kg/m2 Dr. David Fink MD Work Phone: 3(334)957-450848 [place] [address] 04-18-2025 10:46-0400 Body weight 101.[address] David Fink MD Work Phone: 7(011)387-501548 [place] [address] 04-18-2025 10:46-0400 Diastolic blood pressure 78 mm[Hg] Dr. David Fink MD Work Phone: 3(274)557-584548 [place] [address] 04-18-2025 10:46-0400 Heart rate 80 /min Dr. David Fink MD Work Phone: 2(799)077-071348 [place] [address] 04-18-2025 10:46-0400 Respiratory rate 16 /min Dr. David Fink MD Work Phone: 3(587)606-668748 [place] [address] 04-18-2025 10:46-0400 Systolic blood pressure 118 mm[Hg] Dr. David Fink MD Work Phone: 1(888)374-241848 [place] [address] 04-04-2025 14:17-0400 Body height 170.[address] David Fink MD Work Phone: 6(378)838-957548 [place] [address] 04-04-2025 14:13-0400 Body mass index (BMI) [Ratio] 35.2 kg/m2 Dr. David Fink MD Work Phone: 9(454)861-853348 [place] [address] 04-04-2025 14:13-0400 Body temperature 98.2 [degF] Dr. Daivd Fink MD Work Phone: 7(202)269-415048 [place] [address] 04-04-2025 14:13-0400 Body weight 102.[address] David Fink MD Work Phone: 3(898)387-072848 [place] [address] 04-04-2025 14:13-0400 Diastolic blood pressure 80 mm[Hg] Dr. David Fink MD Work Phone: 0(939)139-419648 [place] [address] 04-04-2025 14:13-0400 Heart rate 83 /min Dr. David Fink MD Work Phone: 6(225)890-230548 [place] [address] 04-04-2025 14:13-0400 Respiratory rate 16 /min Dr. David Fink MD Work Phone: 5(911)893-111848 [place] [address] 04-04-2025 14:13-0400 SaO2% (BldA) [Mass fraction] 98 % Dr. David Fink MD Work Phone: 3(353)483-174148 [place] [address] 04-04-2025 14:13-0400 Systolic blood pressure 125 mm[Hg] Dr. David Fink MD Work Phone: 4(338)091-248348 [place] [address] 04-02-2025 13:15-0400 Body temperature 97.9 [degF] Dr. David Fink MD Work Phone: 1(587)237-017448 [place] [address] 04-02-2025 13:15-0400 Diastolic blood pressure 62 mm[Hg] Dr. David Fink MD Work Phone: 9(440)685-832348 [place] [address] 04-02-2025 13:15-0400 Heart rate 60 /min Dr. David Fink MD Work Phone: 2(412)970-741048 [place] [address] 04-02-2025 13:15-0400 Respiratory rate 16 /min Dr. David Fink MD Work Phone: 9(975)905-421148 [place] [address] 04-02-2025 13:15-0400 SaO2% (BldA) [Mass fraction] 96 % Dr. David Fink MD Work Phone: 9(449)915-531448 [place] [address] 04-02-2025 13:15-0400 Systolic blood pressure 116 mm[Hg] Dr. David Fink MD Work Phone: 0(755)079-053548 [place] [address] 04-02-2025 12:45-0400 Inhaled oxygen flow rate 2 L/min Dr. David Fink MD Work Phone: 4(572)763-563148 [place] [address] 04-02-2025 10:06-0400 Body height 170.[address] David Fink MD Work Phone: 4(924)385-938048 [place] [address] 04-02-2025 10:06-0400 Body mass index (BMI) [Ratio] 35.2 kg/m2 Dr. David Fink MD Work Phone: 6(627)259-227448 [place] [address] 04-02-2025 10:06-0400 Body weight [address] David Fink MD Work Phone: 2(768)263-521848 [place] [address] 03-29-2025 14:36-0400 Body weight 102.[address] David Fink MD Work Phone: 5(694)799-963748 [place] [address] 03-28-2025 15:36-0400 Body height 170.[address] David Fink MD Work Phone: 9(753)480-908748 [place] [address] 03-28-2025 15:36-0400 Body mass index (BMI) [Ratio] 35.3 kg/m2 Dr. David Fink MD Work Phone: 2(410)820-167248 [place] [address] 03-28-2025 15:36-0400 Body temperature 96.7 [degF] Dr. David Fink MD Work Phone: 8(727)043-899848 [place] [address] 03-28-2025 15:36-0400 Body weight 102.[address] David Fink MD Work Phone: 0(947)174-852948 [place] [address] 03-28-2025 15:36-0400 Diastolic blood pressure 77 mm[Hg] Dr. David Fink MD Work Phone: 2(574)287-549248 [place] [address] 03-28-2025 15:36-0400 Heart rate 78 /min Dr. David Fink MD Work Phone: 3(358)830-458048 [place] [address] 03-28-2025 15:36-0400 Respiratory rate 18 /min Dr. David Fink MD Work Phone: 1(288)668-352948 [place] [address] 03-28-2025 15:36-0400 SaO2% (BldA) [Mass fraction] 95 % Dr. David Fink MD Work Phone: 1(105)540-398148 [place] [address] 03-28-2025 15:36-0400 Systolic blood pressure 111 mm[Hg] Dr. David Fink MD Work Phone: 9(469)730-778948 [place] [address] 03-26-2025 13:32-0400 Body weight 102.[address] David Fink MD Work Phone: 6(123)121-728748 [place] [address] 03-26-2025 13:32-0400 Diastolic blood pressure 80 mm[Hg] Dr. David Fink MD Work Phone: 0(456)341-369948 [place] [address] 03-26-2025 13:32-0400 Heart rate 96 /min Dr. David Fink MD Work Phone: 6(750)613-966448 [place] [address] 03-26-2025 13:32-0400 Respiratory rate 17 /min Dr. David Fink MD Work Phone: 9(487)377-846148 [place] [address] 03-26-2025 13:32-0400 SaO2% (BldA) [Mass fraction] 95 % Dr. David Fink MD Work Phone: 1(050)561-585048 [place] [address] 03-26-2025 13:32-0400 Systolic blood pressure 121 mm[Hg] Dr. David Fink MD Work Phone: 0(504)838-576348 [place] [address] 03-21-2025 13:28-0400 Body temperature 97 [degF] Christopher Cunningham MD Work Phone: [facility] 03-21-2025 13:28-0400 Body weight 102.56 kg Christopher Cunningham MD Work Phone: [facility] 03-21-2025 13:28-0400 Diastolic blood pressure 57 mm[Hg] Christopher Cunningham MD Work Phone: [facility] 03-21-2025 13:28-0400 Heart rate 64 /min Christopher Cunningham MD Work Phone: [facility] 03-21-2025 13:28-0400 Respiratory rate 18 /min Christopher Cunningham MD Work Phone: [facility] 03-21-2025 13:28-0400 SaO2% (BldA) [Mass fraction] 99 % Christopher Cunningham MD Work Phone: [facility] 03-21-2025 13:28-0400 Systolic blood pressure 123 mm[Hg] Christopher Cunningham MD Work Phone: [facility] 02-26-2025 11:18-0400 Body mass index (BMI) [Ratio] 34.9 kg/m2 Dr. David Fink MD Work Phone: [facility] 02-26-2025 11:18-0400 Body temperature 98.5 [degF] Dr. David Fink MD Work Phone: [facility] 02-26-2025 11:18-0400 Body weight 101.[address] David Fink MD Work Phone: [facility] 02-26-2025 11:18-0400 Diastolic blood pressure 75 mm[Hg] Dr. David Fink MD Work Phone: [facility] 02-26-2025 11:18-0400 Heart rate 76 /min Dr. David Fink MD Work Phone: [facility] 02-26-2025 11:18-0400 Respiratory rate 18 /min Dr. David Fink MD Work Phone: [facility] 02-26-2025 11:18-0400 SaO2% (BldA) [Mass fraction] 96 % Dr. David Fink MD Work Phone: [facility] 02-26-2025 11:18-0400 Systolic blood pressure 116 mm[Hg] Dr. David Fink MD Work Phone: [facility] 02-14-2025 13:52-0400 Body height 170.2 cm Ashok Herbert ROLL ICER MACHINE - DOCUMENT MANAGEMENT TECHNICIAN Work Phone: [facility] 02-14-2025 13:52-0400 Body mass index (BMI) [Ratio] 34.64 kg/m2 Ashok Herbert ROLL ICER MACHINE - DOCUMENT MANAGEMENT TECHNICIAN Work Phone: [facility] 02-14-2025 13:52-0400 Body weight 100.34 kg Ashok Herbert ROLL ICER MACHINE - DOCUMENT MANAGEMENT TECHNICIAN Work Phone: [facility] 02-14-2025 13:52-0400 Diastolic blood pressure 78 mm[Hg] Ashok Herbert ROLL ICER MACHINE - DOCUMENT MANAGEMENT TECHNICIAN Work Phone: [facility] 02-14-2025 13:52-0400 Heart rate 80 /min Ashok Herbert ROLL ICER MACHINE - DOCUMENT MANAGEMENT TECHNICIAN Work Phone: [facility] 02-14-2025 13:52-0400 Systolic blood pressure 122 mm[Hg] Ashok Herbert ROLL ICER MACHINE - DOCUMENT MANAGEMENT TECHNICIAN Work Phone: [facility] 01-27-2025 09:10-0400 Body temperature 96.49 [degF] Darvin Grady MD Work Phone: [facility] 01-27-2025 09:10-0400 Diastolic blood pressure 51 mm[Hg] Darvin Grady MD Work Phone: [facility] 01-27-2025 09:10-0400 Heart rate 59 /min Darvin Grady MD Work Phone: [facility] 01-27-2025 09:10-0400 Respiratory rate 18 /min Darvin Grady MD Work Phone: [facility] 01-27-2025 09:10-0400 SaO2% (BldA) [Mass fraction] 94 % Darvin Grady MD Work Phone: [facility] 01-27-2025 09:10-0400 Systolic blood pressure 97 mm[Hg] Darvin Grady MD Work Phone: [facility] 01-26-2025 06:40-0400 Body height 170.2 cm Darvin Grady MD Work Phone: [facility] 01-26-2025 06:40-0400 Body mass index (BMI) [Ratio] 35.21 kg/m2 Darvin Grady MD Work Phone: [facility] 01-26-2025 06:40-0400 Body weight 102 kg Darvin Grady MD Work Phone: [facility] 01-17-2025 10:23-0500 Body height 170.2 cm Darvin Grady MD Work Phone: [facility] 01-17-2025 10:23-0500 Body mass index (BMI) [Ratio] 36.98 kg/m2 Darvin Grady MD Work Phone: [facility] 01-17-2025 10:23-0500 Body weight 107.09 kg Darvin Grady MD Work Phone: [facility] 01-17-2025 10:23-0500 Diastolic blood pressure 68 mm[Hg] Darvin Grady MD Work Phone: [facility] 01-17-2025 10:23-0500 Heart rate 69 /min Darvin Grady MD Work Phone: [facility] 01-17-2025 10:23-0500 SaO2% (BldA) [Mass fraction] 95 % Darvin Grady MD Work Phone: [facility] 01-17-2025 10:23-0500 Systolic blood pressure 122 mm[Hg] Darvin Grady MD Work Phone: [facility] 01-10-2025 13:05-0500 Body height 170.[address] David Fink MD Work Phone: 9(433)138-279748 [place] [address] 01-10-2025 13:05-0500 Body mass index (BMI) [Ratio] 37.3 kg/m2 Dr. David Fink MD Work Phone: 5(407)933-036748 [place] [address] 01-10-2025 13:05-0500 Body temperature 96.6 [degF] Dr. David Fink MD Work Phone: 6(757)335-866448 [place] [address] 01-10-2025 13:05-0500 Body weight 108.[address] David Fink MD Work Phone: 1(724)269-218148 [place] [address] 01-10-2025 13:05-0500 Diastolic blood pressure 72 mm[Hg] Dr. David Fink MD Work Phone: 4(442)865-917448 [place] [address] 01-10-2025 13:05-0500 Heart rate 74 /min Dr. David Fink MD Work Phone: 1(566)079-484748 [place] [address] 01-10-2025 13:05-0500 Respiratory rate 18 /min Dr. David Fink MD Work Phone: 7(206)601-897948 [place] [address] 01-10-2025 13:05-0500 SaO2% (BldA) [Mass fraction] 93 % Dr. David Fink MD Work Phone: 4(234)610-021048 [place] [address] 01-10-2025 13:05-0500 Systolic blood pressure 110 mm[Hg] Dr. David Fink MD Work Phone: 3(044)918-738148 [place] [address] 01-08-2025 21:55-0500 Body temperature 98.3 [degF] Dr. David Fink MD Work Phone: 0(787)851-328448 [place] [address] 01-08-2025 21:55-0500 Diastolic blood pressure 89 mm[Hg] Dr. David Fink MD Work Phone: 4(503)998-015348 [place] [address] 01-08-2025 21:55-0500 Heart rate 78 /min Dr. David Fink MD Work Phone: 7(257)149-638048 [place] [address] 01-08-2025 21:55-0500 Respiratory rate 16 /min Dr. David Fink MD Work Phone: [facility] 01-08-2025 21:55-0500 SaO2% (BldA) [Mass fraction] 98 % Dr. David Fink MD Work Phone: [facility] 01-08-2025 21:55-0500 Systolic blood pressure 128 mm[Hg] Dr. David Fink MD Work Phone: [facility] 01-08-2025 17:57-0500 Body mass index (BMI) [Ratio] 36.7 kg/m2 Dr. David Fink MD Work Phone: [facility] 01-08-2025 17:57-0500 Body weight 106.[address] David Fink MD Work Phone: [facility] 12-24-2024 13:51-0500 Body mass index (BMI) [Ratio] 38.19 kg/m2 Isaías Ribeiro ROLL ICER MACHINE.DOCUMENT MANAGEMENT TECHNICIAN Work Phone: [facility] 12-24-2024 13:51-0500 Body temperature 97.81 [degF] Isaías Ribeiro ROLL ICER MACHINE.DOCUMENT MANAGEMENT TECHNICIAN Work Phone: [facility] 12-24-2024 13:51-0500 Body weight 110.6 kg Isaías Ribeiro ROLL ICER MACHINE.DOCUMENT MANAGEMENT TECHNICIAN Work Phone: [facility] 12-24-2024 13:51-0500 Diastolic blood pressure 68 mm[Hg] Isaías Ribeiro ROLL ICER MACHINE.DOCUMENT MANAGEMENT TECHNICIAN Work Phone: [facility] 12-24-2024 13:51-0500 Heart rate 80 /min Isaías Ribeiro ROLL ICER MACHINE.DOCUMENT MANAGEMENT TECHNICIAN Work Phone: [facility] 12-24-2024 13:51-0500 Respiratory rate 18 /min Isaías Ribeiro ROLL ICER MACHINE.DOCUMENT MANAGEMENT TECHNICIAN Work Phone: [facility] 12-24-2024 13:51-0500 SaO2% (BldA) [Mass fraction] 96 % Isaías Ribeiro ROLL ICER MACHINE.DOCUMENT MANAGEMENT TECHNICIAN Work Phone: [facility] 12-24-2024 13:51-0500 Systolic blood pressure 126 mm[Hg] Isaías Quintin ROLL ICER MACHINE.DOCUMENT MANAGEMENT TECHNICIAN Work Phone: [facility] 08-02-2024 18:51-0400 Body mass index (BMI) [Ratio] 38.5 kg/m2 Isaíasmaría Springermassimo ROLL ICER MACHINE.DOCUMENT MANAGEMENT TECHNICIAN Work Phone: [facility] 08-02-2024 18:51-0400 Body temperature 98.01 [degF] Isaías Ribeiro ROLL ICER MACHINE.DOCUMENT MANAGEMENT TECHNICIAN Work Phone: [facility] 08-02-2024 18:51-0400 Body weight 111.5 kg Isaísa Gloryelliottmassimo ROLL ICER MACHINE.DOCUMENT MANAGEMENT TECHNICIAN Work Phone: [facility] 08-02-2024 18:51-0400 Diastolic blood pressure 76 mm[Hg] Isaías Gloryelliottmassimo ROLL ICER MACHINE.DOCUMENT MANAGEMENT TECHNICIAN Work Phone: [facility] 08-02-2024 18:51-0400 Heart rate 93 /min Isaías Ribeiro ROLL ICER MACHINE.DOCUMENT MANAGEMENT TECHNICIAN Work Phone: [facility] 08-02-2024 18:51-0400 Respiratory rate 20 /min Isaías Gloryelliottmassimo ROLL ICER MACHINE.DOCUMENT MANAGEMENT TECHNICIAN Work Phone: [facility] 08-02-2024 18:51-0400 SaO2% (BldA) [Mass fraction] 94 % Isaías Ribeiro ROLL ICER MACHINE.DOCUMENT MANAGEMENT TECHNICIAN Work Phone: [facility] 08-02-2024 18:51-0400 Systolic blood pressure 119 mm[Hg] Isaías Holderelliottmassimo ROLL ICER MACHINE.DOCUMENT MANAGEMENT TECHNICIAN Work Phone: [facility] 04-18-2024 12:13-0400 Body mass index (BMI) [Ratio] 38.81 kg/m2 Juana Linton ROLL ICER MACHINE.DOCUMENT MANAGEMENT TECHNICIAN Work Phone: [facility] 04-18-2024 12:13-0400 Body temperature 98.49 [degF] Juana Linton ROLL ICER MACHINE.DOCUMENT MANAGEMENT TECHNICIAN Work Phone: [facility] 04-18-2024 12:13-0400 Body weight 112.4 kg Juana Linotn ROLL ICER MACHINE.DOCUMENT MANAGEMENT TECHNICIAN Work Phone: [facility] 04-18-2024 12:13-0400 Diastolic blood pressure 68 mm[Hg] Juana Linton ROLL ICER MACHINE.DOCUMENT MANAGEMENT TECHNICIAN Work Phone: [facility] 04-18-2024 12:13-0400 Heart rate 98 /min Juana Linton ROLL ICER MACHINE.DOCUMENT MANAGEMENT TECHNICIAN Work Phone: [facility] 04-18-2024 12:13-0400 Respiratory rate 16 /min Juana Linton ROLL ICER MACHINE.DOCUMENT MANAGEMENT TECHNICIAN Work Phone: [facility] 04-18-2024 12:13-0400 SaO2% (BldA) [Mass fraction] 95 % Juana Linton ROLL ICER MACHINE.DOCUMENT MANAGEMENT TECHNICIAN Work Phone: [facility] 04-18-2024 12:13-0400 Systolic blood pressure 118 mm[Hg] Juana Linton ROLL ICER MACHINE.DOCUMENT MANAGEMENT TECHNICIAN Work Phone: [facility] 03-23-2024 10:40-0400 Body mass index (BMI) [Ratio] 39.47 kg/m2 Cinhtya Praisler-Wood ROLL ICER MACHINE.DOCUMENT MANAGEMENT TECHNICIAN Work Phone: [facility] 03-23-2024 10:40-0400 Body temperature 97.59 [degF] Cinthya Praisler-Wood ROLL ICER MACHINE.DOCUMENT MANAGEMENT TECHNICIAN Work Phone: [facility] 03-23-2024 10:40-0400 Body weight 114.3 kg Cinthya Praisler-Wood ROLL ICER MACHINE.DOCUMENT MANAGEMENT TECHNICIAN Work Phone: [facility] 03-23-2024 10:40-0400 Diastolic blood pressure 64 mm[Hg] Cinthya Praisler-Wood ROLL ICER MACHINE.DOCUMENT MANAGEMENT TECHNICIAN Work Phone: [facility] 03-23-2024 10:40-0400 Heart rate 109 /min Cinthya Praisler-Wood ROLL ICER MACHINE.DOCUMENT MANAGEMENT TECHNICIAN Work Phone: [facility] 03-23-2024 10:40-0400 Respiratory rate 16 /min Cinthya Praisler-Wood ROLL ICER MACHINE.DOCUMENT MANAGEMENT TECHNICIAN Work Phone: [facility] 03-23-2024 10:40-0400 SaO2% (BldA) [Mass fraction] 98 % Cinthya Vaughan ROLL ICER MACHINE.DOCUMENT MANAGEMENT TECHNICIAN Work Phone: [facility] 03-23-2024 10:40-0400 Systolic blood pressure 138 mm[Hg] Cinthya Vaughan ROLL ICER MACHINE.DOCUMENT MANAGEMENT TECHNICIAN Work Phone: [facility] 03-01-2023 14:29-0400 Body weight 108.41 kg David Fink MD Work Phone: [facility] 03-01-2023 14:29-0400 Diastolic blood pressure 72 mm[Hg] David Fink MD Work Phone: [facility] 03-01-2023 14:29-0400 Heart rate 58 /min David Fink MD Work Phone: [facility] 03-01-2023 14:29-0400 SaO2% (BldA) [Mass fraction] 95 % David Fink MD Work Phone: [facility] 03-01-2023 14:29-0400 Systolic blood pressure 112 mm[Hg] David Fink MD Work Phone: [facility] 01-26-2023 14:37-0400 Body height 170.2 cm David Fink MD Work Phone: [facility] 01-26-2023 14:37-0400 Body weight 111.13 kg David Fink MD Work Phone: [facility] 01-26-2023 14:37-0400 Diastolic blood pressure 80 mm[Hg] David Fink MD Work Phone: [facility] 01-26-2023 14:37-0400 Heart rate 84 /min David Fink MD Work Phone: [facility] 01-26-2023 14:37-0400 SaO2% (BldA) [Mass fraction] 95 % David Fink MD Work Phone: [facility] 01-26-2023 14:37-0400 Systolic blood pressure 130 mm[Hg] David Fink MD Work Phone: [facility] 12-08-2022 15:16-0500 Body height 170.18 cm No Primary Care Physician [facility] 12-08-2022 15:16-0500 Body mass index (BMI) [Ratio] 38.3 kg/m2 No Primary Care Physician [facility] 12-08-2022 15:16-0500 Body weight 111.13 kg No Primary Care Physician [facility] 12-08-2022 15:16-0500 Diastolic blood pressure 64 mm[Hg] No Primary Care Physician [facility] 12-08-2022 15:16-0500 Heart rate 65 /min No Primary Care Physician [facility] 12-08-2022 15:16-0500 Respiratory rate 18 /min No Primary Care Physician [facility] 12-08-2022 15:16-0500 Systolic blood pressure 104 mm[Hg] No Primary Care Physician [facility] 07-27-2022 13:06-0400 Body height 169 cm David Fink MD Work Phone: [facility] 07-27-2022 13:06-0400 Body weight 101.61 kg David Fink MD Work Phone: [facility] 07-27-2022 13:06-0400 Diastolic blood pressure 62 mm[Hg] David Fink MD Work Phone: [facility] 07-27-2022 13:06-0400 Heart rate 68 /min David Fink MD Work Phone: [facility] 07-27-2022 13:06-0400 Systolic blood pressure 112 mm[Hg] David Fink MD Work Phone: [facility] 06-08-2022 14:02-0400 Body weight 99.34 kg Kyleigh Saucedo MD Work Phone: [facility] 06-08-2022 14:02-0400 Diastolic blood pressure 68 mm[Hg] Kyleigh Saucedo MD Work Phone: [facility] 06-08-2022 14:02-0400 Systolic blood pressure 118 mm[Hg] Kyleigh Saucedo MD Work Phone: [facility] 05-29-2022 15:33-0400 Body temperature 98 [degF] No Primary Care Physician [facility] Work Phone: 05-29-2022 15:33-0400 Diastolic blood pressure 60 mm[Hg] No Primary Care Physician [facility] Work Phone: 05-29-2022 15:33-0400 Heart rate 64 /min No Primary Care Physician [facility] Work Phone: 05-29-2022 15:33-0400 Respiratory rate 17 /min No Primary Care Physician [facility] Work Phone: 05-29-2022 15:33-0400 SaO2% (BldA) [Mass fraction] 95 % No Primary Care Physician [facility] Work Phone: 05-29-2022 15:33-0400 Systolic blood pressure 119 mm[Hg] No Primary Care Physician [facility] Work Phone: 05-28-2022 18:26-0400 Inhaled oxygen flow rate 2 L/min No Primary Care Physician [facility] Work Phone: 05-28-2022 14:46-0400 Body height 170.18 cm No Primary Care Physician [facility] Work Phone: 05-28-2022 14:46-0400 Body mass index (BMI) [Ratio] 36.6 kg/m2 No Primary Care Physician [facility] Work Phone: 05-28-2022 14:46-0400 Body weight 106.2 kg No Primary Care Physician [facility] Work Phone: 05-19-2022 13:54-0400 Body height 170.2 cm Kyleigh Saucedo MD Work Phone: [facility] 05-19-2022 13:54-0400 Body weight 107.5 kg Kyleigh Saucedo MD Work Phone: [facility] 05-19-2022 13:54-0400 Diastolic blood pressure 70 mm[Hg] Kyleigh Saucedo MD Work Phone: [facility] 05-19-2022 13:54-0400 Heart rate 74 /min Kyleigh Saucedo MD Work Phone: [facility] 05-19-2022 13:54-0400 Respiratory rate 16 /min Kyleigh Saucedo MD Work Phone: [facility] 05-19-2022 13:54-0400 Systolic blood pressure 126 mm[Hg] Kyleigh Saucedo MD Work Phone: [facility] 04-23-2022 10:39-0400 Body temperature 97 [degF] Juana Linton ROLL ICER MACHINE.DOCUMENT MANAGEMENT TECHNICIAN Work Phone: [facility] 04-23-2022 10:39-0400 Body weight 107.86 kg Juana Linton ROLL ICER MACHINE.DOCUMENT MANAGEMENT TECHNICIAN Work Phone: [facility] 04-23-2022 10:39-0400 Diastolic blood pressure 84 mm[Hg] Juana Linton ROLL ICER MACHINE.DOCUMENT MANAGEMENT TECHNICIAN Work Phone: [facility] 04-23-2022 10:39-0400 Heart rate 75 /min Juana Linton ROLL ICER MACHINE.DOCUMENT MANAGEMENT TECHNICIAN Work Phone: [facility] 04-23-2022 10:39-0400 Respiratory rate 18 /min Juana Linton ROLL ICER MACHINE.DOCUMENT MANAGEMENT TECHNICIAN Work Phone: [facility] 04-23-2022 10:39-0400 SaO2% (BldA) [Mass fraction] 96 % Juana Linton ROLL ICER MACHINE.DOCUMENT MANAGEMENT TECHNICIAN Work Phone: [facility] 04-23-2022 10:39-0400 Systolic blood pressure 126 mm[Hg] Juana Linton ROLL ICER MACHINE.DOCUMENT MANAGEMENT TECHNICIAN Work Phone: [facility] 03-19-2022 11:38-0400 Body weight 110.68 kg Kyleigh Saucedo MD Work Phone: [facility] 03-19-2022 11:38-0400 Diastolic blood pressure 70 mm[Hg] Kyleigh Saucedo MD Work Phone: [facility] 03-19-2022 11:38-0400 Systolic blood pressure 140 mm[Hg] Kyleigh Saucedo MD Work Phone: [facility] Encounters Encounter Date Encounter Type Care Provider Facility Start: 07-12-[address] Nomi Persaud MD -[facility] Start: 07-12-2025 End: 07-12-2025 Patient encounter procedure Delmis Shayna S[facility]OTTER-C -[facility] Work Phone: Start: 07-12-2025 End: 07-12-[address] David Fink MD Work Phone: -[facility] Start: 06-28-[address] Nomi Persaud MD -[facility] Start: 06-28-2025 End: 06-28-[address] Imani Persaud MD -[facility] Work Phone: Start: 06-28-2025 End: 06-28-[address] David Fink MD Work Phone: [facility] Start: 06-14-[address] Nomi Persaud MD -[facility] Start: 06-14-2025 End: 06-14-[address] Richi Moore MD -[facility] Work Phone: Start: 06-14-2025 End: 06-14-[address] David Fink MD Work Phone: -[facility] Start: 06-08-2025 End: 06-08-[address] David Fink MD Work Phone: -[facility] Start: 06-08-2025 End: 06-08-2025 Patient encounter procedure Delmis Shayna SILK SPOTTER-C -[facility] Work Phone: Start: 06-07-2025 End: 06-07-2025 Patient encounter procedure Delmis Shayna SILK SPOTTER-C -[facility] Work Phone: Start: 06-07-2025 End: 06-08-[address] David Fink MD Work Phone: -[facility] Start: 06-07-[address] Nomi Persaud MD -[facility] Start: 05-31-[address] Nomi Persaud MD -[facility] Start: 05-31-2025 End: 05-31-2025 Patient encounter procedure Delmis Shayna SILK SPOTTER-C -[facility] Work Phone: Start: 05-31-2025 End: 05-31-[address] David Fink MD Work Phone: -[facility] Start: 05-17-[address] Nomi Persaud MD -[facility] Start: 05-17-2025 End: 05-17-[address] Imani Persaud MD -[facility] Work Phone: Start: 05-17-2025 End: 05-17-[address] David Fink MD Work Phone: -[facility] Start: 05-10-[address] Nomi Persaud MD -[facility] Start: 05-10-2025 End: 05-10-2025 Patient encounter procedure Delmis Shayna SILK SPOTTER-C -[facility] Work Phone: Start: 05-10-2025 End: 05-10-[address] David Fink MD Work Phone: [facility] Work Phone: Start: 05-04-2025 End: 05-04-2025 Emergency department patient visit Dr. David Fink MD Work Phone: -Emergency Department Work Phone: Start: 05-03-2025 End: 05-03-2025 Patient encounter procedure Delmis Shayna SILK SPOTTER-C -[facility] Work Phone: Start: 05-03-2025 End: 05-03-[address] David Fink MD Work Phone: [facility] Work Phone: Start: 05-03-[address] N[facility] Start: 04-28-2025 End: 04-28-2025 Emergency department patient visit Dr. David Fink MD Work Phone: -Emergency Department Work Phone: Start: 04-26-2025 End: 04-26-[address] Imani [facility] Work Phone: Start: 04-26-2025 End: 04-26-[address] David Fink MD Work Phone: [facility] Work Phone: Start: 04-26-[address] Nomi [facility] Start: 04-19-[address] Nomi [facility] Start: 04-19-2025 End: 04-19-[address] Imani [facility] Work Phone: Start: 04-19-2025 End: 04-19-[address] David Fink MD Work Phone: [facility] Work Phone: Start: 04-18-2025 End: 04-18-[address] David Fink MD Work Phone: [facility] Work Phone: Start: 04-18-2025 End: 04-18-2025 Patient encounter procedure Keron ALVES -[facility] Work Phone: Start: 04-04-2025 End: 04-04-2025 Patient encounter procedure Delmis Corral NP-[facility] -[facility] Work Phone: Start: 04-04-2025 End: 04-04-[address] David Fink MD Work Phone: [facility] Work Phone: Start: 04-02-2025 ambulatory Theo Collazo lity:[facility] Start: 04-02-2025 Non-patient / Non-visit Dr. Aria Richard MD -[facility] Start: 04-02-2025 End: 04-02-2025 Admission to same day surgery center Dr. Theo Richard MD -[facility] Start: 04-02-2025 End: 04-02-[address] David Fink MD Work Phone: [facility] Work Phone: Start: 03-28-2025 End: 03-28-[address] Imani Persaud MD -[facility] Work Phone: Start: 03-28-2025 End: 03-28-[address] David Fink MD Work Phone: [facility] Work Phone: Start: 03-26-2025 End: 03-26-[address] David Fink MD Work Phone: [facility] Work Phone: Start: 03-26-2025 End: 03-26-[address] Imani Persaud MD -[facility] Work Phone: Start: 03-26-2025 End: 03-26-[address] 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 Imani Persaud MD -[facility] Work Phone: Start: 02-26-2025 End: 02-26-2025 ambulatory [facility] Facility:[facility] Start: 02-16-2025 End: 02-16-2025 Telephone encounter Darvin Grady MD Work Phone: [facility] Start: 02-15-2025 End: 02-15-2025 Telephone encounter Darvin Grady MD Work Phone: [facility] Start: 02-14-2025 End: 02-14-2025 Office outpatient visit 15 minutes Ashok Herbert ROLL ICER MACHINE - DOCUMENT MANAGEMENT TECHNICIAN Work Phone: [facility] Comment on above: Pelvic mass in femal e (Primary Dx); Postoperative follow-up; Yeast infection of the skin Start: 02-14-2025 End: 02-14-2025 Telephone encounter Darvin Grady MD Work Phone: [facility] Start: 02-14-2025 End: 02-14-2025 ambulatory ASHOK HERBERT [facility] Start: 01-26-2025 End: 01-27-2025 Subsequent hospital visit by physician Darvin Grady MD Work Phone: [facility] Medical Surgical Unit [facility] H5 Comment on above: Pelvic mass (Primary Dx); Intra-abdominal and pelvic swelling, mass and lump, unspecified site Start: 01-26-2025 End: 01-27-2025 Unknown DARVIN GRADY [facility] Start: 01-23-2025 End: 01-23-2025 ambulatory DARVIN GRADY [facility] Start: 01-19-2025 End: 01-19-2025 Telephone encounter Darvin Grady MD Work Phone: [facility] On[facility] Comment on above: Other (Surgery sched [facility]) Start: 01-17-2025 End: 01-17-2025 Manual pelvic examination Darvin J Grady MD Work Phone: [facility] Comment on above: Pelvic mass (Primary Dx) Start: 01-17-2025 End: 01-17-2025 Office outpatient new 30 minutes Darvin Grady MD Work Phone: [facility] Comment on above: Pelvic mass in femal e (Primary Dx) Start: 01-17-2025 End: 01-17-2025 ambulatory Darvin Grady MD Work Phone: [facility] Start: 01-12-2025 End: 01-12-[address] David Fink MD Work Phone: [facility] Work Phone: Start: 01-12-2025 End: 01-12-[address] Imani Persaud MD -Ultrasound, [facility] Work Phone: Start: 01-12-2025 End: 01-12-2025 ambulatory [facility] Facility:[facility] Start: 01-10-[address] Nomi Persaud MD -[facility] Start: 01-10-2025 End: 01-10-[address] Imani Persaud MD -[facility] Work Phone: Start: 01-10-2025 End: 01-10-2025 ambulatory [facility] Facility:[facility] [place] Start: 01-08-2025 End: 01-08-2025 Emergency department patient visit Dr. Isaiah Villanueva DO -Emergency Department Work Phone: Start: 12-25-2024 End: 12-25-2024 Follow-up encounter Chace ALEX Work Phone: [facility] Start: 12-24-2024 End: 12-24-2024 ambulatory DAVID FINK Facility:[facility] Start: 12-24-2024 End: 12-24-2024 Office outpatient visit 25 minutes Isaías Ribeiro APRN.CNP Work Phone: [facility] Comment on above: Burning with urinati on (Primary Dx) Start: 10-03-2024 End: 10-09-2024 Telephone encounter Susy Smith APRN.DOCUMENT MANAGEMENT TECHNICIAN Work Phone: [facility] Comment on above: Results Start: 09-29-2024 End: 09-29-2024 ambulatory [facility] Facility:[facility] Start: 09-29-2024 End: 09-29-2024 Subsequent hospital visit by physician Screen Mammo [facility] Comment on above: Encounter for screen ing mammogram for breast cancer [Z12.31] Start: 09-25-2024 End: 09-25-2024 ambulatory David Fink MD Work Phone: [facility] Comment on above: Mammogram Start: 09-25-2024 End: 09-25-2024 Telephone encounter David Fink MD Work Phone: Mammogram Comment on above: Orders Start: 08-02-2024 End: 08-02-2024 Subsequent hospital visit by physician Xr [facility] Work Phone: Radiology Comment on above: Acute cough [R05.1] Start: 08-02-2024 End: 08-02-2024 ambulatory [facility] Facility:[facility] Start: 08-02-2024 End: 08-02-2024 Office outpatient visit 25 minutes Isaías Ribeiro APRN.DOCUMENT MANAGEMENT TECHNICIAN Work Phone: [facility] Comment on above: Acute cough (Primary Dx); Bronchitis Start: 08-02-2024 End: 08-02-2024 Telephone encounter Isaías Ribeiro APRN.DOCUMENT MANAGEMENT TECHNICIAN Work Phone: [facility] Comment on above: Results Start: 04-18-2024 End: 04-18-2024 ambulatory [facility] Facility:[facility] Start: 04-18-2024 End: 04-18-2024 Patient encounter procedure Juana Linton APRN.DOCUMENT MANAGEMENT TECHNICIAN Work Phone: [facility] Comment on above: Acute cough (Primary Dx); Rhinosinusitis Start: 03-23-2024 End: 03-23-2024 ambulatory DAVID FINK Facility:[facility] Start: 03-23-2024 End: 03-23-2024 Patient encounter procedure Cinthya Vaughan APRN.CNP Work Phone: [facility] Comment on above: Acute cough (Primary Dx); Viral URI; Viral bronchitis; Eye redness Start: 09-20-2023 Documentation procedure [facility]og lala Coordinator [facility] Start: 09-20-2023 Letter encounter Mammography Coordinator [facility] Department Start: 09-17-2023 End: 09-17-2023 Subsequent hospital visit by physician Screen Mammo [facility] Comment on above: Encounter for screen ing mammogram for malignant neoplasm of breast [Z12.31] Start: 08-18-2023 Telephone encounter David Fink MD Work Phone: [facility] [place] Comment on above: Patient Question Start: 03-01-2023 End: 03-01-2023 Patient encounter procedure David Fink MD Work Phone: [facility] Comment on above: GERD without esophag itis (Primary Dx); Adjustment disorder with other symptom Start: 02-16-2023 End: 02-16-2023 ambulatory Hilda Morin APRN.CNP Work Phone: [facility] [place] Comment on above: COVID-19 (Primary Dx ) Start: 02-16-2023 End: 02-16-2023 Telemedicine consultation with patient Hilda Sadlerjuany PERES Work Phone: [facility] Start: 01-28-2023 Telephone encounter David Fink MD Work Phone: [facility] Comment on above: Results Start: 01-26-2023 End: 01-26-2023 Subsequent hospital visit by physician Xr [facility] Work Phone: Radiology Comment on above: Trigger little finge r of right hand [M65.351] Start: 01-26-2023 End: 01-26-2023 Patient encounter procedure David Fink MD Work Phone: [facility] Comment on above: 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, unspecified vessel or lesion type (HCC) (Primary Dx); Hyperlipidemia, mixed; Hyperglycemia; Obesity, Class I, BMI 30-34.9; Trigger little finger of right hand; Right elbow pain; Numbness; GERD without esophagitis; Cough, unspecified type; Adjustment disorder with anxious mood Start: 12-08-2022 Patient encounter procedure No Primary Care Physician [facility] Start: 12-08-2022 End: 12-08-2022 Patient encounter procedure No Primary Care Physician [facility] Start: 11-30-2022 End: 11-30-2022 ambulatory No Primary Care Physician [facility] Work Phone: Start: 11-30-2022 End: 11-30-2022 Patient encounter procedure No Primary Care Physician [facility] Start: 10-13-2022 Orders Only Tsering orellana MD Work Phone: [facility] Provider Adult Start: 07-30-2022 Documentation procedure Mammog lala Coordinator [facility] Start: 07-30-2022 Letter encounter Mammography Coordinator [facility] Department Start: 07-30-2022 End: 07-30-2022 Subsequent hospital visit by physician Screen Mammo [facility] Comment on above: Obesity, Class I, BM I 30-34.9 [E66.9] Start: 07-28-2022 Telephone encounter David Fink MD Work Phone: [facility] Comment on above: Results Start: 07-27-2022 End: 07-27-2022 Patient encounter procedure David Fink MD Work Phone: [facility] Comment on above: 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, unspecified vessel or lesion type (HCC) (Primary Dx); Blood in stool; Hyperglycemia; Tobacco use; Hyperlipidemia, mixed; Neck mass Start: 06-25-2022 Telephone encounter David Fink MD Work Phone: [facility] Comment on above: Patient Question Start: [...] encounter procedure Kyleigh Saucedo MD Work Phone: [facility] Start: 05-28-2022 End: 05-29-2022 Evaluation and management of inpatient No Primary Care Physician [facility]-Medical Surgical 3 Start: 05-25-2022 Non-patient / Non-visit No [facility] Physician [facility] Start: 05-25-2022 End: 05-25-2022 Patient encounter procedure No [facility] Care Physician [facility]-Cardiovascul ar Services Start: 05-19-2022 End: 05-19-2022 Patient encounter procedure Kyleigh Saucedo MD Work Phone: OB/Gynecology Comment on above: Menorrhagia with irr egular cycle (Primary Dx); Uterine leiomyoma, unspecified location; Iron deficiency anemia due to chronic blood loss Start: 05-04-2022 Refill Kyleigh saeed MD Work Phone: OB/Gynecology Comment on above: Refill Request Start: 04-23-2022 End: 04-23-2022 Subsequent hospital visit by physician [facility] Work Phone: Radiology Comment on above: Cough [R05.9] Start: 04-23-2022 End: 04-23-2022 Patient encounter procedure Juana Linton APRN.DOCUMENT MANAGEMENT TECHNICIAN Work Phone: [facility] Comment on above: Cough (Primary Dx); URI, [...] Request Start: 10-10-2021 ambulatory [facility] Provider OB/Gynecol ogbarbara Comment on above: Test Results Start: 10-10-2021 E-mail encounter fro m caregiver [facility] Provider [facility] Start: 09-22-2021 Telephone encounter Kyleigh Saucedo MD Work Phone: OB/Gynecology Comment on above: Appointment Procedures Date Procedure Procedure Detail Performing Clinician Start: 07-12-[address] David Fink MD Work Phone: Start: 07-12-2025 Serum inorganic phos phate measurement Dr. David Fink MD Work Phone: Start: 06-28-[address] David Fink MD Work Phone: Start: 06-14-[address] David Fink MD Work Phone: Start: 06-08-[address] David Fink MD Work Phone: Start: 06-07-[address] David Fink MD Work Phone: Start: 06-07-2025 Total iron binding capacity measurement Dr. David Fink MD Work Phone: Start: 05-31-[address] David Fink MD Work Phone: Start: 05-31-2025 Serum inorganic phos phate measurement Dr. David Fink MD Work Phone: Start: 05-17-[address] David Fink MD Work Phone: Start: 05-17-2025 Lymphocyte percent differential count Dr. David Fink MD Work Phone: Start: 05-10-[address] David Fink MD Work Phone: Start: 05-10-2025 Flow cytometry cell surf marker techl only 1st Dr. David Fink MD Work Phone: Start: 05-10-2025 Nucleated red blood cell count procedure Dr. David Fink MD Work Phone: Start: 05-10-2025 Serum inorganic phos phate measurement Dr. David Fink MD Work Phone: Start: 05-04-2025 X-ray of chest, PA a nd lateral views Dr. David Fink MD Work Phone: Start: 05-04-[address] David Fink MD Work Phone: Start: 05-04-[address] Eris Fink MD Work Phone: Start: 05-04-2025 Urnls dip stick/tabl et reagent auto microscopy Dr. David Fink MD Work Phone: Start: 05-04-[address] Bucky Fink MD Work Phone: Start: 05-04-[address] Bucky Fink MD Work Phone: Start: 05-03-2025 Urnls dip stick/tabl et reagent auto microscopy Dr. David Fink MD Work Phone: Start: 05-03-[address] David Fink MD Work Phone: Start: 05-03-[address] fraction Dr. David Fink MD Work Phone: Start: 05-03-2025 Lymphocyte percent differential count Dr. David Fink MD Work Phone: Start: 05-03-[address] David Fink MD Work Phone: Comment on above: Performed at: [place] [id number] Director: Richi Vargas PhD, Phone: [phone] Start: 05-03-2025 Serum inorganic phos phate measurement [...] David Fink MD Work Phone: Start: 04-28-[address] Bucky Fink MD Work Phone: Start: 04-28-2025 Urine [...] MD Work Phone: Start: 04-02-2025 Fluoroscopic guidance D r. David Aleks MD Work Phone: Start: 03-26-2025 CT of [...] lds trcg only w/o i&r Shasha Leahy ROLL ICER MACHINE - DOCUMENT MANAGEMENT TECHNICIAN Work Phone: Start: 01-26-2025 Antibody screen DARVIN GRADY Comment on above: Order Comment: HOLD. Specimen is valid for 3 days - nurse to verify valid specimen Performed By: #### L [id number] #### Spark Plug Tester: KYREE WEATHERS ([id number]) [facility] [address] [place] [address] Start: 01-26-2025 ABO and Rh group [Ty pe] in Blood by Confirmatory method Darvin Grady MD Work Phone: Start: 01-26-2025 Basic metabolic pane l calcium total Shasha Leahy ROLL ICER MACHINE - DOCUMENT MANAGEMENT TECHNICIAN Work Phone: Start: 01-26-2025 Blood typing serolog [...] et rgnt auto w/o microscopy Karena Arzola ROLL ICER MACHINE.DOCUMENT MANAGEMENT TECHNICIAN Work Phone: Start: 09-29-2024 Mammography Darvin moncada MD Work Phone: Start: 08-02-2024 Radiologic exam ches t 2 views Isaías Ribeiro ROLL ICER MACHINE.DOCUMENT MANAGEMENT TECHNICIAN Work Phone: Start: 09-17-2023 Screening mammograph y [...] Plasma David Fink MD Work Phone: Start: 09-05-2022 Adult depression screening assessment David Fink MD Work Phone: Start: 05-28-2022 Total abdominal hysterectomy No Primary Care Physician Start: 04-23-2022 Radiologic exam ches t 2 views Juana Linton APRN.CNP Work Phone: Start: 03-31-2021 History of placement of stent for coronary artery disease History of coronary artery stent placement [facility]eron [facility] Comment on above: ORC-BJO-Kcko LAD w/ 4.5 x 20 mm Veriflex 06/2014; OAV-PIF-Ihbk RCA w/ 4.0 X 22 Orsiro 03/31/21 History of cholecystectomy History of cholecystectomy No Primary Care Physician Plan of Treatment Date Care Activity Detail Author Start: 2045 RSV Immunization for Adults (1 - 1-dose 75+ series) RSV Immunization for Adults (1 - 1-dose 75+ series) [facility] Start: 09-08-2028 Lipid 1996 panel - Serum or Plasma Lipid Screening [facility] Start: 09-08-2028 Lipid panel Lipid Screening [facility] Start: 07-24-2027 Lipid 1996 panel - Serum or Plasma Lipid Screening [facility] Start: 07-24-2027 LIPID SCREEN LIPID SCREEN [facility] Start: 09-23-2026 HPV TESTING HPV TESTING [facility] Start: 09-23-2026 PAP TESTING PAP TESTING [facility] Start: 09-23-2026 Screening for malignant neoplasm of cervix [facility] Start: 09-08-2026 Diabetes Screening Diabetes Screening [facility] Start: 03-20-2026 End: 03-20-2026 Patient encounter procedure 03/20/2026 2:00 PM EDT Office Visit Division of Medical Oncology [address] [place] [address] Christopher Cunningham MD [address] [place] [address] Division of Medical Oncology Start: 01-26-2026 DIABETES SCREEN DIABETES SCREEN [facility] Start: 01-26-2026 Diabetes Screening Diabetes Screening [facility] Start: 09-29-2025 Screening for malignant neoplasm of breast [facility] Start: 07-27-2025 DIABETES SCREEN DIABETES SCREEN [facility] Start: 07-24-2025 DIABETES SCREEN DIABETES SCREEN [facility] Start: 07-16-2025 Influenza vaccination Influenza Vaccine (Season Ended) [facility] Start: 07-12-2025 [facility] Start: 06-28-2025 [facility] Start: 06-14-2025 [facility] Start: 06-14-2025 [facility] Start: 06-07-2025 [facility] Start: 05-31-2025 [facility] Start: 05-17-2025 Serum inorganic phosphate measurement [facility] Start: 05-17-2025 [facility] Start: 05-10-2025 [facility] Start: 05-04-2025 [facility] Start: 05-04-2025 End: 05-04-2025 [facility] Start: 05-04-2025 [facility] Start: 05-04-2025 Bacteria identified in Blood by Culture Blood Culture [facility] Start: 05-04-2025 Bacteria identified in Urine by Culture Urine Culture [facility] Start: 05-04-2025 Blood culture Blood Culture [facility] Start: 05-03-2025 Patient referral [facility] Work Phone: Start: 05-03-2025 Direct antiglobulin test.unspecified reagent [Presence] on Red Blood Cells [facility] Start: 05-03-2025 Haptoglobin [Mass/volume] in Serum or Plasma [facility] Start: 05-03-2025 Hepatic function panel [facility] Start: 05-03-2025 Lactate dehydrogenase measurement [facility] Start: 05-03-2025 Reticulocyte count [facility] Start: 05-03-2025 [facility] Start: 04-28-2025 [facility] Start: 04-28-2025 [facility] Start: 04-28-2025 End: 04-28-2025 [facility] Start: 04-28-2025 Oxygen therapy [facility] Start: 04-28-2025 Chemotherapy care management [facility] Start: 04-28-2025 Bacteria identified in Blood by Culture Blood Culture [facility] Start: 04-28-2025 Bacteria identified in Urine by Culture Urine Culture [facility] Start: 04-28-2025 Blood culture Blood Culture [facility] Start: 04-26-2025 [facility] Start: 04-19-2025 Venous catheter care management [facility] Start: 04-19-2025 [facility] Start: 04-02-2025 Anesthesia access central venous circulation ANESTH VASCULAR ACCESS [facility] Start: 04-02-2025 Insj tunneled ctr vad w/subq port age 5 yr/> INSERT TUNNELED CV CATH [facility] Start: 04-02-2025 Patient referral [facility] Work Phone: Start: 04-02-2025 Patient discharge [facility] Start: 03-28-2025 Patient referral [facility] Work Phone: Start: 02-26-2025 Patient referral [facility] Work Phone: Start: 02-09-2025 End: 02-09-2025 Patient encounter procedure 02/09/2025 11:00 AM EDT Office Visit [facility] [address] [place] [address] Ashok Herbert, ROLL ICER MACHINE - DOCUMENT MANAGEMENT TECHNICIAN [address] [place] [address] [facility] Start: 01-26-2025 End: 01-26-2025 Admission to same day surgery center 01/26/2025 8:30 AM EDT - 01/26/2025 10:00 AM EDT Surgery [facility] MAIN OR [address] [place] [address] Darvin Grady MD [address] [place] [address] LAPAROTOMY, EXPLORATORY [34607 (CPT )] [facility] Comment on above: LAPAROTOMY, EXPLORATORY [34604 (CPT )] Start: 01-26-2025 End: 01-26-2025 Exploratory laparotomy celiotomy w/wo biopsy spx LAPAROTOMY, EXPLORATORY Intra-abdominal and pelvic swelling, mass and lump, unspecified site 01/26/2025 8:30 AM EDT [facility] Operating Room Start: 01-26-2025 End: 01-26-2025 Laparoscopy surg w/bx single/multiple LAPAROSCOPY, WITH BIOPSY Intra-abdominal and pelvic swelling, mass and lump, unspecified site 01/26/2025 8:30 AM EDT [facility] Operating Room Start: 01-26-2025 End: 01-26-2025 Laparoscopy w/rmvl adnexal structures LAPAROSCOPIC, SALPINGO-OOPHORECTOMY Intra-abdominal and pelvic swelling, mass and lump, unspecified site 01/26/2025 8:30 AM EDT [facility] Operating Room Start: 01-26-2025 End: 01-26-2025 Lmtd lmphadec staging spx pel&para-aortic LYMPHADENECTOMY, PARA-AORTIC OR PELVIC, LIMITED, FOR STAGING Intra-abdominal and pelvic swelling, mass and lump, unspecified site 01/26/2025 8:30 AM EDT [facility] Operating Room Start: 01-26-2025 Subsequent hospital visit by physician [facility] MAIN OR Start: 01-23-2025 End: 01-23-2025 Admission to establishment 01/23/2025 9:30 AM EDT Pre-Admission Testing [facility] Pre-Admit Testing [address] [place] [address] Darvin Grady MD [address] [place] [address] [facility] Pre-Admit Testing Start: 01-08-2025 [facility] Start: 01-08-2025 Referral to oncologist [facility] Start: 09-29-2024 End: 09-29-2024 Patient encounter procedure 09/29/2024 1:30 PM EST Appointment Mammogram [address] [place] [address] Encounter for screening mammogram for breast cancer [Z12.31] Mammogram Comment on above: Encounter for screening mammogram for br east cancer [Z12.31] Start: 09-17-2024 Mammography Mammogram Screening [facility] Start: 09-17-2024 Screening for malignant neoplasm of breast Mammogram Screening [facility] Start: 09-08-2024 Diabetes mellitus screening Diabetes Screening [facility] Start: 09-08-2024 Hepatitis B surface antibody level LDL Cholesterol [facility] Start: 08-31-2024 Annual PCP Team Chronic Disease Visit Annual PCP Team Chronic Disease Visit [facility] Start: 08-31-2024 Hepatitis B Vaccine (1 of 3 - 19+ 3-dose series) Hepatitis B Vaccine (1 of 3 - 19+ 3-dose series) [facility] Comment on above: Postponed from 1989 (Declined at t his time) Start: 08-31-2024 Hepatitis B Vaccine (1 of 3 - 3-dose series) Hepatitis B Vaccine (1 of 3 - 3-dose series) [facility] Comment on above: Postponed from 1970 (Declined at t his time) Start: 08-31-2024 Pneumococcal vaccination [facility] Comment on above: Postponed from 1976 (Declined at t his time) Start: 08-31-2024 Shingrix Vaccine (1 of 2) Shingrix Vaccine (1 of 2) [facility] Comment on above: Postponed from 2020 (Declined at t his time) Start: 08-31-2024 Urine microalbumin profile DTaP,Tdap,Td Vaccine (1 - Tdap) [facility] Comment on above: Postponed from 1989 (Declined at t his time) Start: 07-16-2024 Covid-19 Vaccine ( season) Covid-19 Vaccine ( season) [facility] Start: 07-16-2024 Covid-19 Vaccine ( season) Covid-19 Vaccine ( season) [facility] Start: 07-16-2024 Influenza vaccination [facility] Start: 05-14-2024 Influenza vaccination Influenza Vaccine (#1) [facility] Comment on above: Postponed from 07/16/2023 (Declined at t his time) Start: 03-01-2024 ANNUAL PCP TEAM CHRONIC DISEASE VISIT ANNUAL PCP TEAM CHRONIC DISEASE VISIT [facility] Start: 02-17-2024 ANNUAL PCP TEAM CHRONIC DISEASE VISIT ANNUAL PCP TEAM CHRONIC DISEASE VISIT [facility] Start: 01-27-2024 ANNUAL PCP TEAM CHRONIC DISEASE VISIT ANNUAL PCP TEAM CHRONIC DISEASE VISIT [facility] Start: 01-27-2024 COVID-19 VACCINE (#1) COVID-19 VACCINE (#1) [facility] Comment on above: Postponed from 01/22/1971 (Declined at t his time) Start: 11-15-2023 Behavioral Health Screening Behavioral Health Screening [facility] Start: 07-30-2023 Mammography [facility] Start: 07-27-2023 ANNUAL PCP TEAM CHRONIC DISEASE VISIT ANNUAL PCP TEAM CHRONIC DISEASE VISIT [facility] Start: 07-27-2023 HEPATITIS C SCREENING HEPATITIS C SCREENING [facility] Comment on above: Postponed from 1988 (Declined at t his time) Start: 07-24-2023 COLORECTAL CANCER SCREENING COLORECTAL CANCER SCREENING [facility] Start: 07-24-2023 FECAL OCCULT BLOOD FECAL OCCULT BLOOD [facility] Start: 07-24-2023 Hepatitis B surface antibody level LDL CHOLESTEROL [facility] Start: 07-24-2023 Screening for malignant neoplasm of colon [facility] Start: 07-20-2023 Adult depression screening assessment DEPRESSION SCREENING [facility] Start: 07-16-2023 Covid-19 Vaccine ( season) Covid-19 Vaccine () [facility] Start: 07-16-2023 Influenza vaccination [facility] Start: 05-14-2023 Influenza vaccination INFLUENZA (#1) [facility] Comment on above: Postponed from 07/16/2022 (Declined at t his time) Start: 01-25-2023 End: 03-27-2023 Hemoglobin A1c in Blood HGB A1C Lab Routine Hyperglycemia Expected: 01/25/2023, Expires: 03/27/2023 [facility] Work Phone: Comment on above: Expected: 01/25/2023, Expires: 3 Start: 07-27-2022 End: 09-26-2022 Hemoglobin A1c in Blood [facility] Work Phone: Comment on above: Expected: 07/27/2022, Expires: 2 Start: 07-16-2022 Influenza vaccination [facility] Start: 05-29-2022 Introduction of urinary catheter [facility] Work Phone: Start: 05-29-2022 Patient discharge [facility] Work Phone: Start: 05-28-2022 Ambulation therapy management [facility] Work Phone: Start: 05-28-2022 Continuous pulse oximetry [facility] Work Phone: Start: 05-28-2022 Elevation of head of bed [facility] Work Phone: Start: 05-28-2022 Incentive spirometry [facility] Work Phone: Start: 05-28-2022 Measuring intake and output [facility] Work Phone: Start: 05-28-2022 Notification of physician [facility] Work Phone: Start: 05-28-2022 Oxygen therapy [facility] Work Phone: Start: 05-28-2022 Patient education [facility] Work Phone: Start: 05-28-2022 Procedures relating to eating and drinking [facility] Work Phone: Start: 05-28-2022 Taking patient vital signs [facility] Work Phone: Start: 05-28-2022 Wound care [facility] Work Phone: Start: 05-28-2022 [facility] Work Phone: Start: 05-28-2022 Introduction of urinary catheter [facility] Work Phone: Start: 05-28-2022 Following clinical pathway protocol [facility] Work Phone: Start: 05-28-2022 Admission procedure [facility] Work Phone: Start: 05-21-2022 Electrocardiographic procedure [facility] Work Phone: Start: 03-19-2022 End: 05-19-2022 CBC panel - Blood by Automated count CBC Lab Routine Menorrhagia with irregular cycle Expected: 03/19/2022, Expires: 05/19/2022 [facility] Work Phone: Comment on above: Expected: 03/19/2022, Expires: 2 Start: 03-19-2022 End: 05-19-2022 IRON + TIBC IRON + TIBC Lab Routine Menorrhagia with irregular cycle Expected: 03/19/2022, Expires: 05/19/2022 [facility] Work Phone: Comment on above: Expected: 03/19/2022, Expires: 2 Start: 03-19-2022 End: 05-19-2022 Thyrotropin [Units/volume] in Serum or Plasma TSH BLD Lab Routine Menorrhagia with irregular cycle Expected: 03/19/2022, Expires: 05/19/2022 [facility] Work Phone: Comment on above: Expected: 03/19/2022, Expires: 2 Start: 11-15-2021 DEPRESSION ASSESSMENT DEPRESSION ASSESSMENT [facility] Start: 07-16-2021 Influenza vaccination INFLUENZA (#1) [facility] Start: 2020 Screening for malignant neoplasm of lung Lung Cancer Screening [facility] Start: 2020 SHINGRIX VACCINE (1 of 2) SHINGRIX VACCINE (1 of 2) [facility] Start: 2020 Zoster vaccine hzv live for subcutaneous use ZOSTER (SHINGLES) VACCINE (1 of 2) [facility] Start: 2020 Zoster Vaccines (1 of 2) Zoster Vaccines (1 of 2) [facility] Start: 2015 COLOGUARD (FIT-DNA) COLOGUARD (FIT-DNA) [facility] Start: 2015 Colonoscopy COLONOSCOPY [facility] Start: 2015 COLORECTAL CANCER SCREENING COLORECTAL CANCER SCREENING [facility] Start: [address] COLONOGRAPHY [facility] Start: 2015 DIABETES SCREEN DIABETES SCREEN [facility] Start: 2015 FECAL OCCULT BLOOD FECAL OCCULT BLOOD [facility] Start: 2015 LIPID SCREEN LIPID SCREEN [facility] Start: 2015 Screening for malignant neoplasm of colon [facility] Start: 2015 SIGMOIDOSCOPY SIGMOIDOSCOPY [facility] Start: 2010 Lipid panel LIPID SCREENING [facility] Start: 2010 Mammography MAMMOGRAM [facility] Start: 2000 HPV TESTING HPV TESTING [facility] Start: 2000 Screening for malignant neoplasm of cervix [facility] Start: 1991 PAP TESTING PAP TESTING [facility] Start: 1991 Screening for malignant neoplasm of cervix [facility] Start: 1989 DTaP/Tdap/Td Vaccines (1 - Tdap) DTaP/Tdap/Td Vaccines (1 - Tdap) [facility] Start: 1989 Hepatitis B vaccination HEP B VACCINE (1 of 3 - 19+ 3-dose series) [facility] Start: 1989 Hepatitis B Vaccine (1 of 3 - 19+ 3-dose series) Hepatitis B Vaccine (1 of 3 - 19+ 3-dose series) [facility] Start: 1989 Hepatitis B Vaccines (1 of 3 - 19+ 3-dose series) Hepatitis B Vaccines (1 of 3 - 19+ 3-dose series) [facility] Start: 1989 Pneumococcal vaccination PNEUMOCOCCAL VACCINE SERIES (1 of 2 - PCV) [facility] Start: 1989 Pneumococcal Vaccine: 50+ (1 of 2 - PCV) Pneumococcal Vaccine: 50+ (1 of 2 - PCV) [facility] Start: 1989 Pneumococcal Vaccine: 50+ Years (1 of 2 - PCV) Pneumococcal Vaccine: 50+ Years (1 of 2 - PCV) [facility] Start: 1989 Third diphtheria, tetanus and acellular pertussis (DTaP) vaccination TDAP (ADULT) [facility] Start: 1989 Urine microalbumin profile [facility] Start: 1988 Anxiety Screening Anxiety Screening [facility] Start: 1988 Depression Screening Depression Screening [facility] Start: 1988 HEPATITIS C SCREENING HEPATITIS C SCREENING [facility] Start: 1988 Hepatitis C screening Hepatitis C Screening [facility] Start: 1988 HIV SCREENING HIV SCREENING [facility] Start: 1985 HIV screening HIV SCREENING DISCUSSION [facility] Start: 1982 Adult depression screening assessment DEPRESSION SCREENING [facility] Start: 1982 COVID-19 VACCINE (1) COVID-19 VACCINE (1) [facility] Start: 1976 PNEUMOCOCCAL (1 - PCV) PNEUMOCOCCAL (1 - PCV) [facility] Start: 1976 Pneumococcal vaccination [facility] Start: 1975 COVID-19 VACCINE (#1) COVID-19 VACCINE (#1) [facility] Start: 1975 COVID-19 VACCINE (1) COVID-19 VACCINE (1) [facility] Start: 1971 MMR Vaccines (1 of 1 - Standard series) MMR Vaccines (1 of 1 - Standard series) [facility] Start: 01-22-1971 COVID-19 VACCINE (#1) COVID-19 VACCINE (#1) [facility] Start: 1970 HEPATITIS B (1 of 3 - 3-dose series) HEPATITIS B (1 of 3 - 3-dose series) [facility] Start: 1970 Hepatitis B Vaccine (1 of 3 - 3-dose series) Hepatitis B Vaccine (1 of 3 - 3-dose series) [facility] Start: 1970 Hepatitis C screening HEPATITIS C VIRUS SCREENING [facility] Start: 1970 HIV screening HIV Screening [facility] Start: 1970 Lipid panel Lipid Panel [facility] Start: 1970 Screening for malignant neoplasm of colon [facility] Start: 1970 Tetanus vaccination TETANUS [facility] Alanine aminotransfe rase [Enzymatic activity/volume] in Serum or Plasma [facility] Alanine aminotransfe rase [Enzymatic activity/volume] in Serum or Plasma [facility] Albumin [Mass/volume ] in Serum or Plasma [facility] Albumin [Mass/volume ] in Serum or Plasma [facility] Alkaline phosphatase [Enzymatic activity/volume] in Serum or Plasma [facility] Alkaline phosphatase [Enzymatic activity/volume] in Serum or Plasma [facility] Anion gap in Serum or Plasma [facility] Bacteria identified in Urine by Culture BACTERIAL CULTURE, URINE Microbiology Routine Burning with urination 12/24/2024 1:56 PM EST [facility] Work Phone: Basic metabolic 2008 panel with ionized calcium - Serum or Plasma [facility] Bilirubin, total measurement [facility] Bilirubin, total measurement [facility] Bilirubin.direct [Mass/volume] in Serum or Plasma [facility] BUN/Creatinine ratio [facility] Calcium [Mass/volume ] in Serum or Plasma [facility] Carbon dioxide, tota l [Moles/volume] in Central venous blood [facility] CBC W Auto Different ial panel - Blood [facility] CBC W Auto Different ial panel - Blood [facility] Comprehensive metabo lic 2000 panel - Serum or Plasma [facility] Creatinine [Mass/vol ume] in Serum or Plasma [facility] End: 10-25-2025 DBT Breast - bilateral screening [facility] Work Phone: Comment on above: 1 Occurrences starting 09/25/2024 until 10/25/2025 DBT Breast - bilater al screening BRITTANY SCREENING W ALFONSO Radiology Routine Encounter for screening mammogram for breast cancer 09/29/2024 1:34 PM EST [facility] Work Phone: End: 01-27-2024 EMG(NEURO/NI) EMG(NEURO/NI) EMG Routine Numbness 1 Occurrences starting 01/26/2023 until 01/27/2024 [facility] Work Phone: Comment on above: 1 Occurrences starting 01/26/2023 until 01/27/2024 Erythrocyte mean cor puscular volume determination [facility] Exploratory laparoto my celiotomy w/wo biopsy spx LAPAROTOMY, EXPLORATORY Intra-abdominal and pelvic swelling, mass and lump, unspecified site [facility] Ferritin [Mass/volum e] in Serum or Plasma [facility] Folate [Moles/volume ] in Serum or Plasma [facility] Glucose [Mass/volume ] in Serum or Plasma [facility] Hematocrit [Volume F raction] of Blood [facility] Hemoglobin [Mass/vol ume] in Blood [facility] Hepatic function panel [facility] Iron and Iron bindin g capacity panel - Serum or Plasma [facility] Laparoscopy w/rmvl a dnexal structures LAPAROSCOPIC, SALPINGO-OOPHORECTOMY Intra-abdominal and pelvic swelling, mass and lump, unspecified site [facility] Leukocytes [#/volume ] in Blood [facility] Lipid 1996 panel - S noemi or Plasma [facility] Lmtd lmphadec stagin g spx pel&para-aortic LYMPHADENECTOMY, PARA-AORTIC OR PELVIC, LIMITED, FOR STAGING Intra-abdominal and pelvic swelling, mass and lump, unspecified site [facility] Magnesium measurement [facility] Magnesium measurement [facility] Magnesium measurement [facility] Mean corpuscular hem oglobin concentration determination [facility] Mean corpuscular hem oglobin determination [facility] Measurement of renal function [facility] Neutrophil count [facility] Neutrophil percent differential count [facility] Non-Gynecologic Cytology [facility] Work Phone: Comment on above: Release Upon Ordering for 1 Occurrences starting 01/26/2025, 1 completed Patient Education [facility] Work Phone: Patient referral [facility] Work Phone: Platelets [#/volume] in Blood [facility] Potassium measurement [facility] Red blood cell count [facility] Red cell distributio n width determination [facility] Serum chloride measurement [facility] Serum inorganic phos phate measurement [facility] Serum inorganic phos phate measurement [facility] Sodium measurement [facility] Thyroid stimulating hormone measurement [facility] Tissue exam [facility] Comment on above: Release Upon Ordering for 1 Occurrences starting 01/26/2025 Total protein measurement [facility] Total protein measurement [facility] Urea nitrogen [Mass/ volume] in Serum or Plasma [facility] Urine culture [facility] Urine culture [facility] US Abdomen limited [facility] End: 08-26-2023 Us soft tissue head & neck real time imge docm US HEAD/NECK SOFT TISSUE OTHER Radiology Routine Neck mass 1 Occurrences starting 07/27/2022 until 08/26/2023 [facility] Work Phone: Comment on above: 1 Occurrences starting 07/27/2022 until 08/26/2023 Vitamin B12 measurement [facility] End: 05-18-2025 XR Chest PA and Lateral XR CHEST 2V FRONTAL/LAT Radiology STAT Acute cough 1 Occurrences starting 04/18/2024 until 05/18/2025 [facility] Work Phone: Comment on above: 1 Occurrences starting 04/18/2024 until 05/18/2025 End: 02-25-2024 XR HAND GENERAL 3V PA/LAT/OBL RIGHT XR HAND GENERAL 3V PA/LAT/OBL RIGHT Radiology Routine Trigger little finger of right hand 1 Occurrences starting 01/26/2023 until 02/25/2024 [facility] Work Phone: Comment on above: 1 Occurrences starting 01/26/2023 until 02/25/2024 XR HAND GENERAL 3V P A/LAT/OBL RIGHT XR HAND GENERAL 3V PA/LAT/OBL RIGHT Radiology Routine Trigger little finger of right hand 01/26/2023 3:43 PM EDT [facility] Work Phone: [facility] Payers Date Payer Category Payer Self-pay [id number] 2024 [employer] Managed Care - O ANTH BLUE CROSS [id number] 2024 Managed Care (unspecified) [facility] [id number] 2022 Blue Cross Blue Shield BLUE ACCE SS PPO [id number] 2022 Unknown ANTHEM BLUE ACCE SS PPO [id number] 2022-Present [phone] [id number] [id number] PPO [id number] 2022 Unknown ANTHEM BLUE ACCE SS PPO [id number] 2022-Present [phone] [id number] [address] PPO [id number] 2022 Unknown [id number] 1970 Unknown [id number]. 594 Medicaid [id number] Unknown [id number] 2.16.840.1.589000.3.579.2. 462 Unknown [id number] 2.16.840.1.711596.3.579.2. 462 Unknown [id number] 2.16.840.1.159492.3.579.2. 462 Unknown [id number] 2.16.840.1.003138.3.579.2. 462 Unknown [id number] 2.16.840.1.916996.3.579.2. 462 Unknown [id number] 2.16.840.1.086247.3.579.2. 462 Unknown [id number] 2.16.840.1.066454.3.579.2. 462 Unknown [id number] 2.16.840.1.768283.3.579.2. 462 Unknown [id number] 2.16.840.1.486043.3.579.2. 462 Unknown [id number] 2.16.840.1.505575.3.579.2. 462 Unknown [id number] 2.16.840.1.842881.3.579.2. 462 Unknown [id number] 2.16.840.1.038654.3.579.2. 462 Unknown [id number] 2.16.840.1.576709.3.579.2. 462 Unknown [id number] 2.16.840.1.042199.3.579.2. 462 Unknown [id number] 2.16.840.1.788573.3.579.2. 462 Unknown [id number] 2.16.840.1.437613.3.579.2. 462 Unknown [id number] 2.16.840.1.971989.3.579.2. 462 Unknown [id number] 2.16.840.1.283020.3.579.2. 462 Unknown [id number] 2.16.840.1.792484.3.579.2. 462 Unknown [id number] 2.16.840.1.240479.3.579.2. 462 Unknown [id number] 2.16.840.1.025686.3.579.2. 462 Unknown [id number] 2.16.840.1.153189.3.579.2. 462 Unknown [id number] 2.16.840.1.145233.3.579.2. 462 Unknown [id number] 2.16.840.1.030790.3.579.2. 462 Unknown [id number] 2.16.840.1.306983.3.579.2. 462 Unknown [id number] 2.16.840.1.716772.3.579.2. 462 Social History Date Type Detail Facility Start: 05-21-2022 End: 12-08-2022 Tobacco smoking status INIS Tobacco smoking consumption unknown [facility] Work Phone: Start: 1970 Sex Assigned At Not on file [facility] Start: 09-23-2021 End: 05-04-2025 Tobacco smoking status INIS Smokes tobacco daily [facility] Start: 09-23-2021 End: 03-21-2025 Tobacco use and exposure Smokeless tobacco non-user [facility] Start: 09-25-2021 End: 12-24-2024 Alcohol intake Ex-drinker (finding) [facility] Start: 1970 Sex Assigned At Female C [facility] Start: 03-09-2022 End: 10-13-2022 Exposure to SARS-CoV-2 (event) Not sure [facility] Start: 06-09-2019 None [place] [facility] Start: 03-28-2021 Cigarettes [place] [facility] Start: 07-20-2022 End: 01-25-2023 History SDOH Alcohol Frequency 2 [facility] Start: 07-20-2022 End: 01-25-2023 History SDOH Alcohol Std Drinks 1 [facility] Start: 07-20-2022 History SDOH Social Connections Phone 5 [facility] Start: 07-20-2022 End: 01-25-2023 History SDOH Social Connections Living 3 [facility] Start: 07-20-2022 End: 01-25-2023 History SDOH Financial 4 [facility] Start: 01-25-2023 History SDOH Alcohol Std Drinks 0 [facility] Start: 01-24-2023 End: 03-21-2025 History of Social function [facility] Start: 01-24-2023 End: 03-21-2025 Social connection and isolation panel [facility] Do you belong to any clubs or organizations such as presybeterian groups, unions, fraternal or athletic groups, or school groups? No [facility] Attends Club or Organization Meetings Not on file [facility] Are you now , , , , never or living with a partner? [facility] How often to you hav e a drink containing alcohol? Never [facility] How hard is it for y ou to pay for the very basics like food, housing, medical care, and heating Not very hard [facility] Do you feel stress - tense, restless, nervous, or anxious, or unable to sleep at night because your mind is troubled all the time - these days [OSQ] Rather much [facility] (I/We) worried wheth er (my/our) food would run out before (I/we) got money to buy more. Never true [facility] Start: 09-30-2021 Gender identity Identifies as female gender (finding) [facility] Start: 09-30-2021 Sexual orientation Heterosexual ([place]) [facility] Start: 11-15-1985 History of tobacco use Cigarette Smo ker [facility] Start: 01-17-2025 End: 03-21-2025 Alcoholic beverage intake Lifetime non-drinker (finding) [facility] Start: 01-16-2025 End: 02-27-2025 Sex Female (finding) [facility] Start: 04-15-1986 Tobacco smoking stat us NHIS Occasional tobacco smoker [facility] Start: 03-21-2025 Tobacco Comment I am slowly qu itting. Down from a pack a day to less than half a pack a day. [facility] NEGATED: Highlighted row Not [facility] Medical Equipment Procedure Code Equipment Code Equipment Origin al Text Equipment Identifier Dates Insertion, vascular access port [id number] Vascular port/catheter [id number] FDA Start: 04-02-2025 Hysterectomy, total, abdominal Plant polysaccharide haemostatic agent, bioabsorbable [id number] FDA Start: 05-28-2022 Goals Date Patient Goal Desired Activity /State Functional Status Date Assessment Result Facility 05-29-2022 Functional status Ambulates [facility] Work Phone: Mental Status Date Assessment Result Facility 05-04-2025 Cognitive function Level Of Cons ciousness Awake;Alert;Appropriate;Follow s Commands [facility] Work Phone: 04-28-2025 Cognitive function Level Of Cons ciousness Awake;Alert;Appropriate;Follow s Commands [facility] Work Phone: 04-02-2025 Cognitive function Voice/Name [facility] Work Phone: 05-29-2022 Cognitive function Level Of Cons ciousness Awake;Alert;Appropriate;Follow s Commands [facility] Work Phone: 05-28-2022 Cognitive function Voice/Name [facility] Work Phone: 05-28-2022 Cognitive function Memory Description Int act [facility] Work Phone: Clinical Notes 03-31-2021 to 06-14-2025 Note Date & Type Note Facility 06-14-2025 Progress note [facility] 06-14-2025 Progress note Note Date/Time June 14, 2025 10:59am [facility] [place] [address] OFFICE VISIT Date of Service: 06/14/25 1015 MR#: [id number] Acct: [id number] Name: UZMA MCDONALD Rep #: [id number] : 1970 From: Richi Moore MD Age/Sex: 54/F Location: [facility] [place] [place] Status: Signed HPI Subjective Date of Service 06/14/25 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 The patient was seen in [facility] emergency room January 08, 2025 with [...] activity and tumor cell necrosis. IHC at [facility] positive for SMA, negative for desmin, STAT6, pancytokeratin, S100 and CD34. Additional IHC done at [facility] showed negative Desmin, negative Caldesmon, ER [...] omentectomy. * Docetaxel gemcitabine April 19, 2025 Interval History Comes for C3D8. Feels well. [facility] Medical History Iron deficiency anemia Constipation Transaminitis 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 Hypokalemia Encounter for chemotherapy management Severe neutropenia Anemia Dark urine Oral candidiasis Encounter for education Cancer Back pain Shortness [...] Number of servings: 2 Intake Vital Signs 06/07/25 09:27 06/14/25 10:18 Height 5 ft 7 in 5 ft 7 in Weight: 96.842 kg BMI 33.4 BP 102/64 Blood Pressure Location Lt brachial Position Sitting Respiration 18 Pulse 80 Pulse Source Monitor Temp 98.2 F Temperature Source Temporal Artery Pulse Oximetry (%) 100 Oxygen Delivery Method room air Intake Accompanied by: Self Is patient in pain?: Yes (legs) Pain scale (1-10): 3 Allergies No Known Allergies Allergy (Verified 06/14/25 10:20) Medications ?Medication ?Instructions ?Recorded ?Confirmed ?Type aspirin 81 mg chewable tablet 81 mg PO DAILY@0800 hx o f mi 06/09/19 06/14/25 History atorvastatin 80 mg tablet 80 mg PO QHS cholesterol #90 tabs 11/29/23 06/14/25 Rx famotidine 20 mg tablet (Pepcid) 20 mg PO BID 11/29/23 06/14/25 History sertraline 50 mg tablet (Zoloft) 50 mg PO QHS 11/29/23 06/14/25 History lidocaine-prilocaine 2.5 %-2.5 % 1 applic topical ONCE PRN port 04/04/25 06/14/25 Rx topical cream access 30 days #30 grams ondansetron 8 mg disintegrating 8 mg PO Q8H PRN nausea and 04/04/25 06/14/25 Rx tablet vomiting #30 tabs prochlorperazine maleate 10 mg 10 mg PO Q6H PRN nausea and 04/04/25 06/14/25 Rx tablet vomiting #30 tabs dexamethasone 4 mg tablet 8 mg (2 x 4 mg) PO .COMPLEX #72 04/05/25 06/14/25 Rx tabs nystatin 100,000 unit/mL oral 5 ml PO Q6H #473 mL 04/1506/14/25 Rx suspension diclofenac sodium 1 % topical gel 2 g topical .COMPLEX #100 grams 05/31/25 06/14/25 Rx (Arthritis Pain (diclofenac)) potassium chloride 20 mEq 20 meq PO DAILY #3 tabs 05/1506/14/25 Rx tablet,extended release(part/cryst) Central Venous Access Central Venous Access: Yes Port/PICC: Port Laboratory Tests 06/14/25 09:36 WBC 4.9 Hgb 10.2 L Hct 32.5 L Plt Count 189 Absolute Neuts (auto) 2.9 06/08/2025 Abd US reviewed. US/Abdomen Limited IMPRESSION: No acute liver process or acute process otherwise. Nephrolithiasis with 8 mm calculus seen in the right kidney Exam Physical Exam Narrative ECOG 0-1 Const alert, oriented x3 and no apparent distress General Appearance: comfortable Nutritional Appearance: obese HEENT normocephalic Face and Sinus: normal facial exam Mouth: oral and palatal mucosa normal Eyes General Eye: normal appearance of both eyes Neck no lymphadenopathy and no JVD Lymph Lymphatic: no lymphadenopathy noted Chest Chest Narrative: Port R IC area Chest: vascular access Resp clear to auscultation bilaterally Cardio regular rate and regular rhythm Jugular Venous Distention: Negative for JVD GI soft to palpation, non-tender and non-distended; Negative for hepatosplenomegaly Back/Spine no thoracic nor lumbar tenderness Extremity no clubbing, cyanosis or edema Skin no rashes or lesions noted Skin Narrative: +Alopecia Neuro oriented x3, CN's II-XII intact bilaterally, moves all extremities and no focal motor deficits Speech: speech normal Gait (Neuro): normal gait Psych mental status grossly normal Coding Level of Care Code Off vis,est,level 4 Exam Problem Focused Diagnoses 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 Comes for C3D8. Counts and Chemistry reviewed, OK for therapy. Plan is to proceed with C3D8 Gemzar and Taxotere. 06/14/25 1059 <Electronically signed by Richi Delgado> Date _ Richi Moore MD Cosigner Signature: Date (if applicable) CC: Dr. David Fink MD ~ [facility] Work Phone: [phone] 676-630707-25-2025 Radiology Diagnostic study note [facility] Imaging Services [address] [place], [place] [id number] Abdomen Limited MR#: [id number] Acct: [id number] Name: UZMA MCDONALD Rep #: [id number] : 1970 F 54 From: Pet er Peer DO PCP: Dr. David Fink MD Status: REG C Study:Abdomen Limited Date of Exam: 05/16 04/08 Exam# [id number] Ordering Dr: Delmis Sibley SILK SPOTTER SILK SPOTTER-C PROCEDURE: ABDOMEN LIMITED 06/08/2025 REASON FOR EXAM: TRANSAMINITIS; FINDINGS: Liver: Length: 16.0 cm. Echogenic suggesting steatosis. Normal hepatopetal flowin the main portal vein. No intrahepatic biliary ductal dilatation. Gallbladder: Post cholecystectomy. Common bile duct: 3.1 mm. Pancreas: Unremarkable Kidneys: The right kidney measures 10.7 x 4.6 x 5.2 cm. An 8 mm calculus is seen. US/Abdomen Limited IMPRESSION: No acute liver process or acute process otherwise. Nephrolithiasis with 8 mm calculus seen in the right kidney Reading Location: [facility] CC: LONG [place]; Dr. David Fink MD ~ Wire Photo Operator: Signed [facility]06-20-2025 Discharge summary [facility] Medical Records Department [address] [place] [address] Emergency Department Summary 05/04/25 MR#: [id number] Acct: [id number] Name: UZMA MCDONALD Rep #:[id number] : 1970 54 From: Radha ALEX PCP: Dr. David Fink MD Status:REG E R Location: ED HPI History of Present Illness Chief Complaint: Fever Narrative Narrative: 54-year-old female presents with fever. She has leiomyosarcoma that was found in December 2024 on ascan. In January 2025 she had exploratory laparotomy with left oophorectomy, removal of pelvic mass, and omentectomy (she had a hysterectomy prior to this cancer diagnosis). She started her first roundof chemo on April 19 and April 26 and is under the care of Dr. Persaud and Ashok Loving. She had blood work drawn yesterday showing a WBC count of 0.5. About1 hour prior to arrival she developed a fever of 100.8 ?F with an oral thermometer. She did not take any antipyretics and presents for evaluation. She denies chest pain, shortness of breath, cough. She has no nausea vomiting or abdominal pain.She states she had 1 episode of loose stools last night after eating eggs but none since. No melenahematochezia. No urinary symptoms. [facility] Medical History (Updated 05/04/25 @ 22:12 by ISAI Payan) Severe neutropenia Anemia Dark urine Oral candidiasis Encounter for education Cancer Back pain Shortness [...] PO .COMPLEX #72 04/05/25 Unknown Rx tabs cefpodoxime 200 mg tablet 200 mg PO BID #20 tabs 04/28 Unknown Rx nystatin 100,000 unit/mL oral 5 ml PO Q6H #473 mL 04/15 05/09 Unknown Rx suspension Allergy/AdvReac Type Severity Reaction Status Date / Time No Known Allergies Allergy Verified 05/04/25 18:04 Family History Father Kidney disease Aunt Cancer [...] 2 ROS ROS ED ROS Narrative Constitutional: Positive for fever. No chills, malaise. Respiratory: Negative for shortness of breath, cough. GI: Negative for abdominal pain, nausea, vomiting, diarrhea. : Negative for dysuria, hematuria or frequency. EXAM Physical Exam Narrative Exam Narrative: CONST: Patient sitting in no acute distress. EYES: Normal inspection. NECK: Normal inspection. RESP: No respiratory distress, CTAB. CVS: Regular rate and rhythm, no murmur, no gallop. ABD: Soft and nontender, no guarding or rebound, nondistended. SKIN: Color normal, no rash, warm, dry, intact. EXTREMITIES: Normal appearance, no pedal edema. NEURO: Alert and answering questions appropriately. PSYCH: Normal affect. Const Vital Signs: 05/04/25 17:59 05/04/25 18:13 05/04/25 19:04 Temperature 99.9 F H 100.2 F H Temperature Source Oral Oral Pulse Rate 97 82 Respiratory Rate 16 22 H Respiratory Effort Normal Non-Labored Blood Pressure 121/66 H 129/63 H Blood Pressure Mean 84 85 Pulse Ox 92 95 Oxygen Delivery Method Room Air Room Air 05/04/25 20:00 05/04/25 21:00 05/04/25 22:14 Temperature 100.2 F H 99.2 F H 99.2 F H Temperature Source Oral Oral Pulse Rate 83 91 91 Respiratory Rate 20 H 17 17 Respiratory Effort Blood Pressure 110/64 104/71 104/71 Blood Pressure Mean 79 82 82 Pulse Ox 95 96 96 Oxygen Delivery Method Room Air Room Air Physical Exam Const Vital Signs: 05/04/25 17:59 05/04/25 18:13 05/04/25 19:04 Temperature 99.9 F H 100.2 F H Temperature Source Oral Oral Pulse Rate 97 82 Respiratory Rate 16 22 H Respiratory Effort Normal Non-Labored Blood Pressure 121/66 H 129/63 H Blood Pressure Mean 84 85 Pulse Ox 92 95 Oxygen Delivery Method Room Air Room Air 05/04/25 20:00 05/04/25 21:00 05/04/25 22:14 Temperature 100.2 F H 99.2 F H 99.2 F H Temperature Source Oral Oral Pulse Rate 83 91 91 Respiratory Rate 20 H 17 17 Respiratory Effort Blood Pressure 110/64 104/71 104/71 Blood Pressure Mean 79 82 82 Pulse Ox 95 96 96 Oxygen Delivery Method Room Air Room Air MDM MDM MDM Narrative Medical decision making narrative: 54-year-old female with past medical history of hysterectomy, bilateral salpingectomy and right oophorectomy. She had a CT showing a large left pelvic mass in December 2024. January 2025 she had ex lapwith left oophorectomy, removalof the pelvic mass, and omentectomy. Diagnosis is leiomyosarcoma. Patient was seen here on 04/28/25 for a fever and was not neutropenic at that time. She was treated for a UTI with ceftriaxone and prescribed 10 days of antibiotics. Urine culture returned as mixed gram-positive organisms. She started chemotherapy on April 19 and April 27 and presents with a fever of 100.8 ?F at home thatstarted an hour prior to arrival. She looks very well. She had not taken antipyretics and temperature here is 100.2 ?F. The rest of her vitals are normal. WBC is 0.8, hemoglobin 10.7, platelets 35. This is stable from yesterday's outpatient labs. Electrolytes and renal function are normal. There ismild elevation of LFTs. INR is 1.2. Proalcitonin and lactic are normal. Urinalysis looks similar toprevious with positive nitrates, over 100 RBCs, 5-10 WBCs and 2+ bacteria. Urine and blood cultureswere sent. I ordered Tylenol and empiric cefepime but patient is adamant she does not want antibiotics until I speak with her oncologist so this is why it there is a delayin starting them. I paged Dr. Moore and oncology and there was a significant delay in hearing back. Once I spoke with him he recommended she be admitted forIV antibiotics since a week ago she had a fever and was not neutropenic and has been taking oral antibiotics since then and now is again febrile and now neutropenic. I discussed this with the patient and she is adamant that she wants to go home because she feels well. She is leaving AGAINST MEDICAL ADVICE. I thoroughly discussed the risks including that she has a very suppressed immune system and could have an underlying infection, developed sepsis, and endorgan damageor . Lab Data Attestation: I reviewed the patient's lab results. Labs: Laboratory Results - last 24 hr 05/04/25 05/04/25 05/04/25 19:02 19:32 20:20 WBC 0.8 L* RBC 3.75 L Hgb 10.7 L Hct 30.4 L MCV 81.1 MCH 28.5 MCHC 35.2 RDW Std Deviation 36.2 RDW Coeff of Estella 12.4 Plt Count 35 L* MPV 10.9 Immature Gran % (Auto) 4.800 H Neut % (Auto) 5.9 L Lymph % (Auto) 71.4 H Bartholomew % (Auto) 11.9 H Eos % (Auto) 3.6 Baso % (Auto) 2.4 H Absolute Neuts (auto) 0.1 L Absolute Lymphs (auto) 0.60 L Nucleated RBC % 4.8 Differential Comment SCANNED Diff Path Review SILK SPOTTER Platelet Estimate MKD DEC PT Cancelled 15.0 H INR Cancelled 1.2 Sodium 133 Potassium 3.7 Chloride 101 Carbon Dioxide 21.2 Anion Gap 11 BUN 8 Creatinine 0.59 L Estim Creat Clear Calc 130.14 Est GFR (MDRD) Non-Af 107 BUN/Creatinine Ratio 13.7 Glucose 115 H Lactic Acid < 1.0 Calcium 8.7 Total Bilirubin 0.62 AST 43 H ALT 49 H Alkaline Phosphatase 90 Total Protein 6.7 Albumin 3.4 L Globulin 3.4 Albumin/Globulin Ratio 1.0 Procalcitonin 0.11 Urine Color Mirna Urine Clarity Cloudy Urine pH 6.0 Ur Specific [place] 1.015 Urine Protein 100 H Urine Glucose (UA) Normal Urine Ketones Negative Urine Occult Blood 250 H Urine Nitrite Positive H Urine Bilirubin 1 H Urine Urobilinogen 4 H Ur Leukocyte Esterase 25 H Urine RBC > 100 SEEN Urine WBC 5-10 SEEN Ur Squamous Epith Cells 0-5 SEEN Ur Transition Epith Cell 0-5 SEEN Urine Bacteria 2+ Urine Mucus 1+ Radiography Diagnostic Testing: Clinical Impression(s) from Imaging Studies Chest X-Ray 05/04/25 19:45 IMPRESSION: No acute cardiopulmonary process. Reading Location: [facility] History & Record Review Discussion w/independent historian: Patient Additional record(s) reviewed:: Prior outpatient record, Prior ED visit and Prior labs Lab Data Labs: Laboratory Results - last 24 hr 05/04/25 05/04/25 05/04/25 19:02 19:32 20:20 WBC 0.8 L* RBC 3.75 L Hgb 10.7 L Hct 30.4 L MCV 81.1 MCH 28.5 MCHC 35.2 RDW Std Deviation 36.2 RDW Coeff of [place]ella 12.4 Plt Count 35 L* MPV 10.9 Immature Gran % (Auto) 4.800 H Neut % (Auto) 5.9 L Lymph % (Auto) 71.4 H Bartholomew % (Auto) 11.9 H Eos % (Auto) 3.6 Baso % (Auto) 2.4 H Absolute Neuts (auto) 0.1 L Absolute Lymphs (auto) 0.60 L Nucleated RBC % 4.8 Differential Comment SCANNED Diff Path Review SILK SPOTTER Platelet Estimate MKD DEC PT Cancelled 15.0 H INR Cancelled 1.2 Sodium 133 Potassium 3.7 Chloride 101 Carbon Dioxide 21.2 Anion Gap 11 BUN 8 Creatinine 0.59 L Estim Creat Clear Calc 130.14 Est GFR (MDRD) Non-Af 107 BUN/Creatinine Ratio 13.7 Glucose 115 H Lactic Acid < 1.0 Calcium 8.7 Total Bilirubin 0.62 AST 43 H ALT 49 H Alkaline Phosphatase 90 Total Protein 6.7 Albumin 3.4 L Globulin 3.4 Albumin/Globulin Ratio 1.0 Procalcitonin 0.11 Urine Color Mirna Urine Clarity Cloudy Urine pH 6.0 Ur Specific [place] 1.015 Urine Protein 100 H Urine Glucose (UA) Normal Urine Ketones Negative Urine Occult Blood 250 H Urine Nitrite Positive H Urine Bilirubin 1 H Urine Urobilinogen 4 H Ur Leukocyte Esterase 25 H Urine RBC > 100 SEEN Urine WBC 5-10 SEEN Ur Squamous Epith Cells 0-5 SEEN Ur Transition Epith Cell 0-5 SEEN Urine Bacteria 2+ Urine Mucus 1+ Radiography Diagnostic Testing: Clinical Impression(s) from Imaging Studies Chest X-Ray 05/04/25 19:45 IMPRESSION: No acute cardiopulmonary process. Reading Location: [facility] Treatment and Re-Evaluation :: I have personally performed a face to face assessment of the patient and have reviewed the DELROY Note. I performed a substantive portion of the visit including all aspects of the following. 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 Follows locally with [facility] oncology. She was seen recently for fever following chemotherapy but was not neutropenic. Today she isneutropenic and is reporting fever at home. She does not have any localizing symptoms of infection. Exam is patient is well-appearing no acute distress. She is not significantly tachycardic. No hypotension. Port site is clean dry and intact. ANO x 3. Medical Decison Making patient is noted to be neutropenic. Hemoglobin 10.7 platelet count is 35 which is chronic for her. INR 1.2. Glucose 115 lactic acid is less than 1. Urinalysis is nitrate positive greater than 100 red blood cells 5-10 white cells 2+ bacteria. Patient pancultured. She does not wish antibiotics until we speak to oncology. We have made multiple attempts to reachoncology and were eventually able to speak with them. The recommendation from us and from oncology is admission to hospital. Patient does not feel that she needs antibiotics and states that her oncologist did not want her to have antibiotics the last time she was in the emergency department. Despite her being told y day continue her antibiotics that she was prescribed from the ED. Patient wishes to sign out AMA and not be admitted to the hospital. Patient has the capacity to make this decision. Discharge Plan Triage Chief Complaint: Fever ED Midlevel Provider: Radha Norman ED Provider: Girish Mcgarry Dx/Rx/DC Orders Clinical Impression: Neutropenic fever, UTI (urinary tract infection), Pancytopenia, Leiomyosarcoma Prescriptions: No Action sertraline [Zoloft] 50 mg [...] 81 MG tablet,chewable 81 mg PO DAILY@0800 cefpodoxime 200 mg tablet 200 mg PO BID Qty: 20 0RF Rx Instructions: must administer with a meal/food nystatin 100,000 unit/mL suspension 5 ml PO Q6H Qty: 473 1RF Rx Instructions: swish and swallow Primary Care Provider: David Fink Referrals: David Fink MD [Primary Care Provider] - Activity Restrictions/Additional Instructions: The ER physician and oncologist are recommending you be admitted for neutropenicfever for IV antibiotics. You are leaving AGAINST MEDICAL ADVICE. Risks are that you could get significantly more ill and become septic, develop damage to your organs, permanent disability, or . Please follow-up closely with youroncologist. Return anytime for admission or worsening symptoms. Print Language: Angolan Disposition Disposition: Home, Self Care What to do if you have Problems For any increased pain, shortness of breath, bleeding, nausea or vomiting, chestpain, or any unexpected problems, contact your Primary Care Provider. Call [facility] ([phone]) or report tothe closest Emergency Room. Call 911 if necessary. 05/04/252214 Cosigner Signature (if applicable): 05/04/252216 CC: Dr. David Fink MD ~ Signed [facility]06-20-2025 Radiology Diagnostic study note [facility] Imaging Services [address] [place] [address] [id number] Chest PA and Lateral MR#: [id number] Acct: [id number] Name: UZMA MCDONALD Rep #: [id number] : 1970 F 54 From: Sandi Loza MD PCP: Dr. David Fink MD Status: REG E R Study:Chest PA and Lateral Date of Exam: 05/04/25 Exam# [id number] Ordering Dr: Radha Sahu EXAM: XR Chest, 2 Views CLINICAL INDICATION: FEVER TECHNIQUE: Frontal and lateral views of the chest. COMPARISON: No relevant prior studies available. FINDINGS: LUNGS AND PLEURAL SPACES: See below. HEART: Unremarkable. No cardiomegaly. MEDIASTINUM: Unremarkable. Normal mediastinal contour. BONES/JOINTS: Unremarkable. No acute fracture. TUBES, LINES AND DEVICES: Right-sided Mediport with the distal tip in the SVC. No pneumothorax. RAD/Chest PA and Lateral IMPRESSION: No acute cardiopulmonary process. Reading Location: [facility] CC: Dr. David Fink MD; ISAI Payan ~ Wire Photo Operator: Signed [facility]06-20-2025 Discharge summary Author Radha Norman [facility] Note Date/Time May 04, 2025 10:1 7pm [facility] Medical Records Department [address] [place] [address] Emergency Department Summary 05/04/25 MR#: [id number] Acct: [id number] Name: UZMA MCDONALD Rep #:[id number] : 1970 54 From: Radha ALEX PCP: Dr. David Fink MD Status:REG E R Location: ED HPI <ISAI Payan - Last Filed: 05/04/25 22:15> History of Present Illness Chief Complaint: Fever Narrative Narrative: 54-year-old female presents with fever. 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 In January 2025 she had exploratory laparotomy with left oophorectomy, removal of pelvic mass, and omentectomy (she had a hysterectomy prior to this cancer diagnosis). She started her first round of chemo on April 19 and April 26 and is under the care of Dr. Persaud and Ashok Loving. She had blood work drawn yesterday showing a WBC count of 0.5. About1 hour prior to arrival she developed a fever of 100.8 ?F with an oral thermometer. She did not take any antipyretics and presents for evaluation. She denies chest pain, shortness of breath, cough. She has no nausea vomiting or abdominal pain. She states she had 1 episode of loose stools last night after eating eggs but none since. No melena hematochezia. No urinary symptoms. PFSH <ISAI Payan - Last Filed: 05/04/25 22:15> [facility] Medical History (Updated 05/04/25 @ 22:12 by ISAI Payan) Severe neutropenia Anemia Dark urine Oral candidiasis Encounter for education Cancer Back pain Shortness [...] PO .COMPLEX #72 04/05/25 Unknown Rx tabs cefpodoxime 200 mg tablet 200 mg PO BID #20 tabs 04/28 Unknown Rx nystatin 100,000 unit/mL oral 5 ml PO Q6H #473 mL 04/15 05/09 Unknown Rx suspension Allergy/AdvReac Type Severity Reaction Status Date / Time No Known Allergies Allergy Verified 05/04/25 18:04 Family History Father Kidney disease Aunt Cancer [...] and tea Number of servings: 2 ROS <ISAI Payan - Last Filed: 05/04/25 22:15> ROS ED ROS Narrative Constitutional: Positive for fever. No chills, malaise. Respiratory: Negative for shortness of breath, cough. GI: Negative for abdominal pain, nausea, vomiting, diarrhea. : Negative for dysuria, hematuria or frequency. EXAM <ISAI Payan - Last Filed: 05/04/25 22:15> Physical Exam Narrative Exam Narrative: CONST: Patient sitting in no acute distress. EYES: Normal inspection. NECK: Normal inspection. RESP: No respiratory distress, CTAB. CVS: Regular rate and rhythm, no murmur, no gallop. ABD: Soft and nontender, no guarding or rebound, nondistended. SKIN: Color normal, no rash, warm, dry, intact. EXTREMITIES: Normal appearance, no pedal edema. NEURO: Alert and answering questions appropriately. PSYCH: Normal affect. Const Vital Signs: 05/04/25 17:59 05/04/25 18:13 05/04/25 19:04 Temperature 99.9 F H 100.2 F H Temperature Source Oral Oral Pulse Rate 97 82 Respiratory Rate 16 22 H Respiratory Effort Normal Non-Labored Blood Pressure 121/66 H 129/63 H Blood Pressure Mean 84 85 Pulse Ox 92 95 Oxygen Delivery Method Room Air Room Air 05/04/25 20:00 05/04/25 21:00 05/04/25 22:14 Temperature 100.2 F H 99.2 F H 99.2 F H Temperature Source Oral Oral Pulse Rate 83 91 91 Respiratory Rate 20 H 17 17 Respiratory Effort Blood Pressure 110/64 104/71 104/71 Blood Pressure Mean 79 82 82 Pulse Ox 95 96 96 Oxygen Delivery Method Room Air Room Air <Dr. Girish Mcgarry DO - Last Filed: 05/04/25 22:16> Physical Exam Const Vital Signs: 05/04/25 17:59 05/04/25 18:13 05/04/25 19:04 Temperature 99.9 F H 100.2 F H Temperature Source Oral Oral Pulse Rate 97 82 Respiratory Rate 16 22 H Respiratory Effort Normal Non-Labored Blood Pressure 121/66 H 129/63 H Blood Pressure Mean 84 85 Pulse Ox 92 95 Oxygen Delivery Method Room Air Room Air 05/04/25 20:00 05/04/25 21:00 05/04/25 22:14 Temperature 100.2 F H 99.2 F H 99.2 F H Temperature Source Oral Oral Pulse Rate 83 91 91 Respiratory Rate 20 H 17 17 Respiratory Effort Blood Pressure 110/64 104/71 104/71 Blood Pressure Mean 79 82 82 Pulse Ox 95 96 96 Oxygen Delivery Method Room Air Room Air [facility] <ISAI Payan - Last Filed: 05/04/25 22:15> [facility] Narrative Medical decision making narrative: 54-year-old female with past medical history of hysterectomy, bilateral salpingectomy and right oophorectomy. She had a CT showing a large left pelvic mass in December 2024. January 2025 she had ex lap with left oophorectomy, removalof the pelvic mass, and omentectomy. Diagnosis is leiomyosarcoma. Patient was seen here on 04/28/25 for a fever and was not neutropenic at that time. She was treated for a UTI with ceftriaxone and prescribed 10 days of antibiotics. Urine culture returned as mixed gram-positive organisms. She started chemotherapy on April 19 and April 27 and presents with a fever of 100.8 ?F at home that started an hour prior to arrival. She looks very well. She had not taken antipyretics and temperature here is 100.2 ?F. The rest of her vitals are normal. WBC is 0.8, hemoglobin 10.7, platelets 35. This is stable from yesterday's outpatient labs. Electrolytes and renal function are normal. There is mild elevation of LFTs. INR is 1.2. Proalcitonin and lactic are normal. Urinalysis looks similar to previous with positive nitrates, over 100 RBCs, 5-10 WBCs and 2+ bacteria. Urine and blood cultures were sent. I ordered Tylenol and empiric cefepime but patient is adamant she does not want antibiotics until I speak with her oncologist so this is why it there is a delayin starting them. I paged Dr. Moore and oncology and there was a significant delay in hearing back. Once I spoke with him he recommended she be admitted forIV antibiotics since a week ago she had a fever and was not neutropenic and has been taking oral antibiotics since then and now is again febrile and now neutropenic. I discussed this with the patient and she is adamant that she wants to go home because she feels well. She is leaving AGAINST MEDICAL ADVICE. I thoroughly discussed the risks including that she has a very suppressed immune system and could have an underlying infection, developed sepsis, and endorgan damage or . Lab Data Attestation: I reviewed the patient's lab results. Labs: Laboratory Results - last 24 hr 05/04/25 05/04/25 05/04/25 19:02 19:32 20:20 WBC 0.8 L* RBC 3.75 L Hgb 10.7 L Hct 30.4 L MCV 81.1 MCH 28.5 MCHC 35.2 RDW Std Deviation 36.2 RDW Coeff of Estella 12.4 Plt Count 35 L* MPV 10.9 Immature Gran % (Auto) 4.800 H Neut % (Auto) 5.9 L Lymph % (Auto) 71.4 H Bartholomew % (Auto) 11.9 H Eos % (Auto) 3.6 Baso % (Auto) 2.4 H Absolute Neuts (auto) 0.1 L Absolute Lymphs (auto) 0.60 L Nucleated RBC % 4.8 Differential Comment SCANNED Diff Path Review SILK SPOTTER Platelet Estimate MKD DEC PT Cancelled 15.0 H INR Cancelled 1.2 Sodium 133 Potassium 3.7 Chloride 101 Carbon Dioxide 21.2 Anion Gap 11 BUN 8 Creatinine 0.59 L Estim Creat Clear Calc 130.14 Est GFR (MDRD) Non-Af 107 BUN/Creatinine Ratio 13.7 Glucose 115 H Lactic Acid < 1.0 Calcium 8.7 Total Bilirubin 0.62 AST 43 H ALT 49 H Alkaline Phosphatase 90 Total Protein 6.7 Albumin 3.4 L Globulin 3.4 Albumin/Globulin Ratio 1.0 Procalcitonin 0.11 Urine Color Mirna Urine Clarity Cloudy Urine pH 6.0 Ur Specific [place] 1.015 Urine Protein 100 H Urine Glucose (UA) Normal Urine Ketones Negative Urine Occult Blood 250 H Urine Nitrite Positive H Urine Bilirubin 1 H Urine Urobilinogen 4 H Ur Leukocyte Esterase 25 H Urine RBC > 100 SEEN Urine WBC 5-10 SEEN Ur Squamous Epith Cells 0-5 SEEN Ur Transition Epith Cell 0-5 SEEN Urine Bacteria 2+ Urine Mucus 1+ Radiography Diagnostic Testing: Clinical Impression(s) from Imaging Studies Chest X-Ray 05/04/25 19:45 IMPRESSION: No acute cardiopulmonary process. Reading Location: [facility] <Dr. Girish Mcgarry, DO - Last Filed: 05/04/25 22:16> MDM History & Record Review Discussion w/independent historian: Patient Additional record(s) reviewed:: Prior outpatient record, Prior ED visit and Prior labs Lab Data Labs: Laboratory Results - last 24 hr 05/04/25 05/04/25 05/04/25 19:02 19:32 20:20 WBC 0.8 L* RBC 3.75 L Hgb 10.7 L Hct 30.4 L MCV 81.1 MCH 28.5 MCHC 35.2 RDW Std Deviation 36.2 RDW Coeff of Estella 12.4 Plt Count 35 L* MPV 10.9 Immature Gran % (Auto) 4.800 H Neut % (Auto) 5.9 L Lymph % (Auto) 71.4 H Bartholomew % (Auto) 11.9 H Eos % (Auto) 3.6 Baso % (Auto) 2.4 H Absolute Neuts (auto) 0.1 L Absolute Lymphs (auto) 0.60 L Nucleated RBC % 4.8 Differential Comment SCANNED Diff Path Review SILK SPOTTER Platelet Estimate MKD DEC PT Cancelled 15.0 H INR Cancelled 1.2 Sodium 133 Potassium 3.7 Chloride 101 Carbon Dioxide 21.2 Anion Gap 11 BUN 8 Creatinine 0.59 L Estim Creat Clear Calc 130.14 Est GFR (MDRD) Non-Af 107 BUN/Creatinine Ratio 13.7 Glucose 115 H Lactic Acid < 1.0 Calcium 8.7 Total Bilirubin 0.62 AST 43 H ALT 49 H Alkaline Phosphatase 90 Total Protein 6.7 Albumin 3.4 L Globulin 3.4 Albumin/Globulin Ratio 1.0 Procalcitonin 0.11 Urine Color Mirna Urine Clarity Cloudy Urine pH 6.0 Ur Specific [place] 1.015 Urine Protein 100 H Urine Glucose (UA) Normal Urine Ketones Negative Urine Occult Blood 250 H Urine Nitrite Positive H Urine Bilirubin 1 H Urine Urobilinogen 4 H Ur Leukocyte Esterase 25 H Urine RBC > 100 SEEN Urine WBC 5-10 SEEN Ur Squamous Epith Cells 0-5 SEEN Ur Transition Epith Cell 0-5 SEEN Urine Bacteria 2+ Urine Mucus 1+ Radiography Diagnostic Testing: Clinical Impression(s) from Imaging Studies Chest X-Ray 05/04/25 19:45 IMPRESSION: No acute cardiopulmonary process. Reading Location: [facility] Treatment and Re-Evaluation :: I have personally performed a face to face assessment of the patient and have reviewed the DELROY Note. I performed a substantive portion of the visit including all aspects of the following. 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 Follows locally with [facility] oncology. She was seen recently for fever following chemotherapy but was not neutropenic. Today she isneutropenic and is reporting fever at home. She does not have any localizing symptoms of infection. Exam is patient is well-appearing no acute distress. She is not significantly tachycardic. No hypotension. Port site is clean dry and intact. ANO x 3. Medical Decison Making patient is noted to be neutropenic. Hemoglobin 10.7 platelet count is 35 which is chronic for her. INR 1.2. Glucose 115 lactic acid is less than 1. Urinalysis is nitrate positive greater than 100 red blood cells 5-10 white cells 2+ bacteria. Patient pancultured. She does not wish antibiotics until we speak to oncology. We have made multiple attempts to reachoncology and were eventually able to speak with them. The recommendation from us and from oncology is admission to hospital. Patient does not feel that she needs antibiotics and states that her oncologist did not want her to have antibiotics the last time she was in the emergency department. Despite her being told yesterday continue her antibiotics that she was prescribed from the ED. Patient wishes to sign out AMA and not be admitted to the hospital. Patient has the capacity to make this decision. Discharge Plan Triage Chief Complaint: Fever ED Midlevel Provider: Radha Norman ED Provider: Girish Mcgarry Dx/Rx/DC Orders Clinical Impression: Neutropenic fever, UTI (urinary tract infection), Pancytopenia, Leiomyosarcoma Prescriptions: No Action sertraline [Zoloft] 50 mg [...] 81 MG tablet,chewable 81 mg PO DAILY@0800 cefpodoxime 200 mg tablet 200 mg PO BID Qty: 20 0RF Rx Instructions: must administer with a meal/food nystatin 100,000 unit/mL suspension 5 ml PO Q6H Qty: 473 1RF Rx Instructions: swish and swallow Primary Care Provider: David Fink Referrals: David Fink MD [Primary Care Provider] - Activity Restrictions/Additional Instructions: The ER physician and oncologist are recommending you be admitted for neutropenicfever for IV antibiotics. You are leaving AGAINST MEDICAL ADVICE. Risks are that you could get significantly more ill and become septic, develop damage to your organs, permanent disability, or . Please follow-up closely with youroncologist. Return anytime for admission or worsening symptoms. Print Language: Angolan Disposition Disposition: Home, Self Care What to do if you have Problems For any increased pain, shortness of breath, bleeding, nausea or vomiting, chestpain, or any unexpected problems, contact your Primary Care Provider. Call [facility] ([phone]) or report to the closest Emergency Room. Call 911 if necessary. 05/04/252214 <Electronically signed by Radha ALEX> Cosigner Signature (if applicable): 05/04/252216 <Electronically signed by Girish Mcgarry DO> CC: Dr. David Fink MD ~ Signed [facility] Work Phone: 1(991) 227-249006-14-2025 Discharge summary [facility] Medical Records Department [address] [place] [address] Emergency Department Summary 04/28/25 MR#: [id number] Acct: [id number] Name: UZMA MCDONALD Rep #:[id number] : 1970 54 From: Girish Hathaway [...] showed no malignant cells. Was seen at [facility] sarcoma clinic by Dr. Cunningham in March 2025 who recommended standard adjuvant chemotherapy with gemcitabine Taxotere for 6 cycles followed by maintenance pazopanib plus letrozole indefinite/till progression. Started adjuvant gemcitabine and Taxotere April 19, 2025. Patient had chemotherapy on April. She has been doing well. This evening noted a feverand came to the emergency department. Temperature here onmy examination is 100.8. She has not had any antipyretics. She states she otherwise feels pretty well other than she has body aches. She denies any urinary symptoms no cough. No oral pharyngeal symptoms. No rashes. She has a right chest port w hich she states is been doing well. She does not feel short of breath and has no abdominal pain. Nolower extremity swelling. [facility] Medical History Encounter for education Cancer [...] not limited to chemotherapy-induced fever neutropenic fever UTIpneumonia bacteremia electrolyte abnormalities PREET anemia My independent [...] Blood and urine cultureswere sent. The patient receivedTylenol for fever as well as IV fluids. [...] 81.3 H Lymph % (Auto) 17.3 L Bartholomew % (Auto) 0.5 Eos % (Auto) 0.2 [...] Sl. Cloudy Urine pH 7.0 Ur Specific [place] 1.010 Urine Protein 100 H Urine Glucose [...] CHANGE SINCE THE PRIOR EXAM. Reading Location: [facility] Discharge Plan Triage Chief Complaint: Fever ED [...] MD [Primary Care Provider] - Print Language: Angolan What to do if you have Problems For any increased pain, shortness of breath, bleeding, nausea or vomiting, chestpain, or any unexpected problems, contact your Primary Care Provider. Call [facility] ([phone]) or report tothe closest Emergency Room. Call 911 if necessary. 04/28/25 5417 Cosigner Signature (if applicable): CC: Dr. David Fink MD ~ Signed [facility]06-14-2025 Radiology Diagnostic study note [facility] Imaging Services [address] [place], [place] [address] Chest PA and Lateral MR#: [id number] Acct: [id number] Name: UZMA MCDONALD Rep #: [id number] : 1970 F 54 From: Lisette Mcdowell MD PCP: Dr. David Fink MD Status: PRE E R Study:Chest PA and Lateral Date of Exam: 04/28/25 Exam# [id number] Ordering Dr: Provider ,Ed P. PROCEDURE: CHEST [...] CHANGE SINCE THE PRIOR EXAM. Reading Location: [id number] CC: Dr. David Fink MD; ED PHYSICIAN PROVIDER ~ Wire Photo Operator: Signed [facility]06-14-2025 Discharge summary Author Girish Mcgarry [facility] Note Date/Time April 28, 2025 11:3 7pm [facility] Medical Records Department [address] [place] [address] Emergency Department Summary 04/28/25 MR#: [id number] Acct: [id number] Name: UZMA MCDONALD Rep #:[id number] : 1970 54 From: Girish Hathaway [...] showed no malignant cells. Was seen at [facility] sarcoma clinic by Dr. Cunningham in [...] no abdominal pain. No lower extremity swelling. [facility] Medical History Encounter for education Cancer [...] 81.3 H Lymph % (Auto) 17.3 L Bartholomew % (Auto) 0.5 Eos % (Auto) 0.2 [...] Sl. Cloudy Urine pH 7.0 Ur Specific [place] 1.010 Urine Protein 100 H Urine Glucose [...] CHANGE SINCE THE PRIOR EXAM. Reading Location: [id number] Discharge Plan Triage Chief Complaint: Fever ED [...] DAILY@0800 Primary Care Provider: David Fink Referrals: Dvaid Fink MD [Primary Care Provider] - Print Language: Angolan What to do if you have Problems For any increased pain, shortness of breath, bleeding, nausea or vomiting, chestpain, or any unexpected problems, contact your Primary Care Provider. Call [facility] ([phone]) or report to the closest Emergency Room. Call 911 if necessary. 04/28/25 8645 <Electronically signed by Girish Mcgarry DO> Cosigner Signature (if applicable): CC: Dr. David Fink MD ~ Signed [facility] Work Phone: 1(436) 481-174906-12-2025 Progress [facility] [address] [place] [address] OFFICE VISIT Date of Service: 04/26/25912 MR#: [id number] Acct: [id number] Name: UZMA MCDONALD Rep #: [id number] : 1970 From: Imani fair MD Age/Sex: 54/F [place] [facility] [place]: Signed HPI Subjective Date of Service 04/26/25 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 The patient was seen in [facility] emergency room January 08, 2025 with [...] activity and tumor cell necrosis. IHC at [facility] positive for SMA, negative for desmin, STAT6, pancytokeratin, S100 and CD34. Additional IHC done at [facility] showed negative Desmin, negative Caldesmon, ER [...] omentectomy. * Docetaxel gemcitabine April 19, 2025 [facility] Medical History Encounter for education Cancer Back [...] no focal motor deficits Coordination / Balance: bjbhcq-ti-rbye test normal Speech: speech normal Gait (Neuro): [...] showed no malignant cells. Was seen at [facility] sarcoma clinic by Dr. Cunningham in [...] discussed with patient . Imani Persaud MD Silk Hanger, [facility] Divisions of Medical Oncology & Hematology Department of Internal Medicine [place] [address] This note was generated using a voice [...] Cosigner Signature: Date (if applicable) CC: ~ [facility]06-12-2025 Progress note Author Imani Persaud [facility] Note Date/Time April 26, 2025 9:37 am [facility] [place] [facility] [place] [address] [place] [address] OFFICE VISIT Date of Service: 04/26/25912 MR#: [id number] Acct: [id number] Name: UZMA MCDONALD Rep #: [id number] : 1970 From: Imani fair MD Age/Sex: 54/F Location: [facility] [place] [place] Status: Signed HPI Subjective Date of Service 04/26/25 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 The patient was seen in [facility] emergency room January 08, 2025 with [...] activity and tumor cell necrosis. IHC at [facility] positive for SMA, negative for desmin, STAT6, pancytokeratin, S100 and CD34. Additional IHC done at [facility] showed negative Desmin, negative Caldesmon, ER [...] omentectomy. * Docetaxel gemcitabine April 19, 2025 [facility] Medical History Encounter for education Cancer Back [...] no focal motor deficits Coordination / Balance: diyzwx-ll-gbfm test normal Speech: speech normal Gait (Neuro): [...] showed no malignant cells. Was seen at [facility] sarcoma clinic by Dr. Cunningham in [...] discussed with patient . Imani Persaud MD Silk H[facility], [facility] Divisions of Medical Oncology & Hematology Department of Internal Medicine [place] [address] This note was generated using a voice [...] Cosigner Signature: Date (if applicable) CC: ~ [facility] Work Phone: 1(538) 847-551906-05-2025 Progress [facility] [place] [address] OFFICE VISIT Date of Service: 04/19/25905 MR#: [id number] Acct: [id number] Name: UZMA MCDONALD Rep #: [id number] : 1970 From: Imani fair MD Age/Sex: 54/F Location: [facility] [place] [place] Status: Signed HPI Subjective Date of Service 04/19/25 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 The patient was seen in [facility] emergency room January 08, 2025 with [...] activity and tumor cell necrosis. IHC at [facility] positive for SMA, negative for desmin, STAT6, pancytokeratin, S100 and CD34. Additional IHC done at [facility] showed negative Desmin, negative Caldesmon, ER [...] omentectomy. * Docetaxel gemcitabine April 19, 2025 [facility] Medical History Encounter for education Cancer Back [...] no focal motor deficits Coordination / Balance: cwmvdd-lg-jgne test normal Speech: speech normal Gait (Neuro): [...] showed no malignant cells. Was seen at [facility] sarcoma clinic by Dr. Cunningham in [...] discussed with patient . Imani Persaud MD Sil[facility], [facility] Divisions of Medical Oncology & Hematology Department of Internal Medicine [place] [address] This note was generated using a voice recognition system software. Although itwas reviewed by the author prior to finalization, it may still contain incorrectwords, spelling, and punctuation that were not noted when reviewing prior to saving. If a clinically significant typo or inaccurately typed phrase is noted, please notify the author. 04/19/25 0941 karen VALDEZ> Date _ Imani Persaud MD [facility] Signature: Date (if applicable) CC: ~ [facility]05-21-2025 [place] [address] OFFICE VISIT Date of Service: 04/04/25 1408 MR#: [id number] Acct: [id number] Name: UZMA MCDONALD Rep #: [id number] : 1970 From: Delmis Roberts ch SILK SPOTTER SILK SPOTTER-C Age/Sex: 54/F Location: [facility] [place] [place] Status: Signed HPI Subjective Date of Service 04/04/25 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 The patient was seen in [facility] emergency room January 08, 2025 with [...] activity and tumor cell necrosis. IHC at [facility] positive for SMA, negative for desmin, STAT6, pancytokeratin, S100 and CD34. Additional IHC done at [facility] showed negative Desmin, negative Caldesmon, ER [...] by way of spouse and adult children. [facility] Medical History (Updated 04/04/25 @ 15:35 by Delmis Corral SILK SPOTTER, SILK SPOTTER-C) Encounter for education Cancer Back pain Shortness [...] showed no malignant cells. Was seen at [facility] sarcoma clinic by Dr. Cunningham in [...] the past year?: No 04/04/25 1537 h SILK SPOTTER SILK SPOTTER-C> Date _ Delmis Corral SILK SPOTTER SILK SPOTTER-C Cosigner Signature: Date (if applicable) CC: ~ [facility]05-21-2025 Progress note Author Delmis Corral [facility] Note Date/Time April 04, 2025 3:37p m [facility] [address] [place] [address] OFFICE VISIT Date of Service: 04/04/25 1408 MR#: [id number] Acct: [id number] Name: UZMA MCDONALD Rep #: [id number] : 1970 From: Delmis Roberts ch SILK SPOTTER SILK SPOTTER-C Age/Sex: 54/F Location: [facility] [place] [place] Status: Signed HPI Subjective Date of Service 04/04/25 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 The patient was seen in [facility] emergency room January 08, 2025 with [...] activity and tumor cell necrosis. IHC at [facility] positive for SMA, negative for desmin, STAT6, pancytokeratin, S100 and CD34. Additional IHC done at [facility] showed negative Desmin, negative Caldesmon, ER [...] by way of spouse and adult children. [facility] Medical History (Updated 04/04/25 @ 15:35 by Delmis Corral NP, SILK SPOTTER-C) Encounter for education Cancer Back pain Shortness [...] showed no malignant cells. Was seen at [facility] sarcoma clinic by Dr. Cunningham in [...] No 04/04/25 1537 <Electronically signed by Delmis king NP SILK SPOTTER-C> Date _ Delmis Corral NP SILK SPOTTER-C Cosigner Signature: Date (if applicable) CC: ~ [place] [employer] [facility] Work Phone: 1(610) 152-727805-19-2025 Consult note [facility] Medical Records Department [address] [place] [address] Anesthesia Postop Eval II 04/02/25 1305 MR#: [id number] Acct: [id number] Name: UZMA MCDONALD Rep #:[id number] : 1970 54 From: Ck Cotto MD PCP: Dr. David Fink MD Status:REG S DC Y Race: C Location: [place] [address] Anesthesia Postop Eval I Sum Postop Eval Completion status Anesthesia document: Postop Eval 1 completed: Yes Anesthesia Postop Eval I Summary Anesthesia Postop Eval I Summary: Anesthesia Postop Eval I: Assessment Summary Airway patent Yes 04/02/25 12:06 COOK FISH EGGS.HBARR Spontaneous unlabored Yes 04/02/25 12:06 COOK FISH EGGS.HBARR respirations Mental status Awake 04/02/25 12:06 COOK [employer] EGGS.HBARR nausea No 04/02/25 12:06 COOK FISH EGGS.HBARR Vomiting No 04/02/25 12:06 COOK FISH EGGS.HBARR Anesthesia Postop Eval I: Fluid Summary Crystalloid volume administer 500 04/02/25 12:06 COOK FISH EGGS.HBARR (ml) Colloids volume administered ( ml) Blood Product volume administered (ml) Total IV fluid infused 500 04/02/25 12:06 COOK FISH EGGS.HBARR Anesthesia Postop Eval I: Summary Notes Anesthesia Complication No 04/02/25 12:06 COOK FISH EGGS.HBARR Anesthesia Complication Comment: Post-operative progress note Anesthesia: Postop Eval II Evaluation Mental status: Awake Pain Level: 0 nausea: No Vomiting: No 04/02/25 1305 > Date _ Ck Cotto MD Cosigner Signature: Date CC: ~ Signed [facility]05-19-2025 Consult note Author Laquita Melendez [facility] Note Date/Time April 02, 2025 12:06 pm [facility] Medical Records Department [address] [place] [address] Anesthesia Postop Eval I 04/02/25 1153 MR#: [id number] Acct: [id number] Name: UZMA MCDONALD Rep #:[id number] : 1970 54 From: Laquita Melendez CRNA PCP: Dr. David Fink MD Status:REG S DC Y Race: C Location: [place] [address] Anesthesia: Postop Eval I Current Vital Signs [...] Laquita ALDRIDGE NA> Date _ Laquita Melendez CRNA Cosigner Signature: Date CC: ~ Signed [facility] Work Phone: 1(258) 999-510505-19-2025 History and physical note Author Theo Richard [facility] Note Date/Time April 02, 2025 11:20 am [facility] Medical Records Department [address] [place] [address] History & Physical Exam 04/02/25 1120 MR#: [id number] Acct: [id number] Name: UZMA MCDONALD Rep #:[id number] : 1970 54 From: Theo villegas MD PCP: Dr. David Fink MD Status:REG S DC Location: [place] [address]-1 History and Physical Date of Admission: 04/02/25 [...] willing to proceed Theo Richard MD Pager: [facility] [address] [place] [address], [address] [place] [phone] Office: I have examined the patient and the H&P has been reviewed. There are no clinicalchanges since date of exam. 04/02/25 1120 <Electronically signed by Theo Richard MD> Cosigner Signature (if applicable): CC: Dr. Theo Richard MD; Dr. David Fink MD~ Signed [facility] Work Phone: 1(882) 771-584605-19-2025 Radiology Diagnostic study note [facility] Imaging Services [address] [place], [place] [id number] CXR for Line Placement MR#: [id number] Acct: [id number] Name: UZMA MCDONALD Rep #: [id number] : 1970 F 54 From: Jake Canales MD PCP: Dr. David Fink MD Status: REG S DC Study:CXR for Line Placement Date of Exam: 04/02/25 Exam# [id number] Ordering Dr: Theo Carmichael MD PROCEDURE: CXR [...] limits of normal. Reading Location: [place] [address] CC: Dr. Theo Richard MD; Dr. David Fink MD ~ Wire Photo Operator: Signed [facility]05-19-2025 Discharge summary [facility] Medical Records Department [address] [place] [address] Instructions for Home/Discharge Instructions 04/02/25 1218 MR#: [id number] Acct: [id number] Name: UZMA MCDONALD Rep #:[id number] : 1970 54 From: Theo villegas [...] to schedule 2 week follow up appointment. [phone] Test Results: Test results from this visit will be discussed in further detail at your follow- up appointment, if applicable. Discharge Plan Admission Attending Provider: Theo Richard Primary Care Provider: David Fink Instructions Print Language: Angolan Discharge Orders/Prescriptions Prescriptions: No Action sertraline [Zoloft] [...] CC: Dr. David Fink MD ~ Signed [facility]05-19-2025 Procedure note [facility] Medical Records Department [address] [place] [address] Operative Report 04/02/25 1216 MR#: [id number] Acct: [id number] Name: UZMA MCDONALD Rep #:[id number] : 1970 54 From: Theo villegas MD PCP: Dr. David Fink MD Status:REG S AR Location: [place] [address] Operative Report (Standard) Operative Information Date of Procedure: 04/02/25 Pre-Operative Diagnosis: Need for vascular access for chemotherapy Post-Operative Diagnosis: Same Surgery/Procedure Performed: Ultrasound and fluoroscopy guided right chest port placement utilizingright IJ time signal wirer: No Type of Anesthesia: Local MAC RN [...] apply: Implanted device Implanted device details: 8 Tajik PowerPort Estimated Blood Loss: 5 Specimen collected: [...] Richard MD; Dr. David Fink MD~ Signed [facility]05-19-2025 Consult note [facility] Medical Records Department [address] [facility] [place] [address] Anesthesia Postop Eval I 04/02/25 1153 MR#: [id number] Acct: [id number] Name: UZMA MCDONALD Rep #:[id number] : 1970 54 From: Laquita Melendez CRNA PCP: Dr. David Fink MD Status:REG S DC Y Race: C Location: [place] [address] Anesthesia: Postop Eval I Current Vital Signs [...] 04/02/25 1206 NA> Date _ Laquita Melendez [employer] Cosigner Signature: Date CC: ~ Signed [facility]05-19-2025 Consult note Author Ck [facility] Note Date/Time April 02, 2025 9:51a m [facility] Medical Records Department [address] [place] [address] Pre-Anesthesia Evaluation 04/02/25 0951 MR#: [id number] Acct: [id number] Name: UZMA MCDONALD Rep #:[id number] : 1970 54 From: Ck Cotto MD PCP: Dr. [place] Fink MD Status:REG S DC Y Race: C Location: [facility] ASA Classification* ASA Classification ASA Classification: 3 [...] POSS LEFT Anesthesia History Anesthesia History - hotel or motel manager: Anesthesia History - hotel or motel manager Hx Hospitalization No 03/28/25 14:20 Any [...] take am of surgery PONV PONV - hotel or motel manager: PONV - hotel or motel manager Female Yes 03/28/25 14:20 HX of [...] 03/30/25 08:51 Respiratory Assessment Respiratory Assessment - hotel or motel manager: Respiratory Tract Infection Hx - hotel or motel manager Hx Respiratory Tract Infection No 03/28/25 14:20 STOP Sleep Apnea STOP Sleep Apnea - hotel or motel manager: STOP Sleep Apnea - hotel or motel manager Hx Hypertension Yes 03/28/25 14:20 Hx [...] Tobacco Use History Tobacco Use History - hotel or motel manager: Tobacco Use History - hotel or motel manager Tobacco Use Cigarettes 03/28/21 15:34 Smoking Status Current every day smoker 03/28/25 14:20 Hx Tobacco Use Yes 03/28/25 14:20 Years Smoking Packs Smoked per Day Smoking Cessation Date was within the last 15 years Hx Smoking Cessation Date Hx Smoking Cessation Counseling Hematologic Medial History Hematologic Hx - hotel or motel manager: Hematologic 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 Hx of Blood Transfusion Yes 03/28/25 14:20 [...] 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 History - hotel or motel manager: /Reproductive Hx- hotel or motel manager Hx Now No 03/28/25 14:20 Gestational Age (in weeks): EDC: Hx Hx Para Hx Section SAB No 03/28/25 14:20 Active Medications Active Medications: Current Medications Generic Name Dose Route Start Last Admin Trade Name Freq PRN Reason Stop Dose Admin Cefazolin Sodium 2 gm/ Sodium 110 mls @ 150 mls/hr 04/02/25 11:30 Chloride IV 04/02/25 12:13 INTRAOP ONE PFS Medical History Cancer Back pain Shortness of [...] and no additional complaints, except as documented. 04/02/2573 <Electronically signed by Ck Ctoto MD > Date _ Ck Cotto MD Cosigner Signature: Date CC: ~ Signed [facility] Work Phone: 1(574) 278-866705-19-2025 History and physical note [facility] Medical Records Department [address] [place] [address] History & Physical Exam 04/02/25 1120 MR#: [id number] Acct: [id number] Name: UZMA MCDONALD Rep #:[id number] : 1970 54 From: Theo villegas MD PCP: Dr. [place] Fink MD Status:REG S AR Location: [place] [address] History and Physical Date of Admission: 04/02/25 [...] willing to proceed Theo Richard MD Pager: [facility] [address] [place] [address], [address] [place] [phone] Office: I have examined the patient and the H&P has been reviewed. There are no clinicalchanges since date of exam. 04/02/25 1120 Cosigner Signature (if applicable): CC: Dr. Theo Richard MD; Dr. [place] Fink MD~ Signed [facility]05-19-[facility] Consult note [facility] Medical Records Department [address] [place], [place] [id number] Pre-Anesthesia Evaluation 04/02/25 0951 MR#: [id number] Acct: [id number] Name: UZMA MCDONALD Rep #:[id number] : 1970 54 From: Ck Cotto MD PCP: Dr. [place] Fink MD Status:REG S DC Y Race: C Location: [facility] ASA Classification* ASA Classification ASA Classification: 3 [...] POSS LEFT Anesthesia History Anesthesia History - hotel or motel manager: Anesthesia History - hotel or motel manager Hx Hospitalization No 03/28/25 14:20 Any [...] take am of surgery PONV PONV - hotel or motel manager: PONV - hotel or motel manager Female Yes 03/28/25 14:20 HX of [...] 03/30/25 08:51 Respiratory Assessment Respiratory Assessment - hotel or motel manager: Respiratory Tract Infection Hx - hotel or motel manager Hx Respiratory Tract Infection No 03/28/25 14:20 STOP Sleep Apnea STOP Sleep Apnea - hotel or motel manager: STOP Sleep Apnea - hotel or motel manager Hx Hypertension Yes 03/28/25 14:20 Hx [...] Tobacco Use History Tobacco Use History - hotel or motel manager: Tobacco Use History - hotel or motel manager Tobacco Use Cigarettes 03/28/21 15:34 Smoking Status Current every day smoker 03/28/25 14:20 Hx Tobacco Use Yes 03/28/25 14:20 Years Smoking Packs Smoked per Day Smoking Cessation Date was within the last 15 years Hx Smoking Cessation Date Hx Smoking Cessation Counseling Hematologic Medial History Hematologic Hx - hotel or motel manager: Hematologic 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 Hx of Blood Transfusion Yes 03/28/25 14:20 [...] 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 History - hotel or motel manager: /Reproductive Hx- hotel or motel manager Hx Now No 03/28/25 14:20 Gestational Age (in weeks): EDC: Hx Hx Para Hx Section SAB No 03/28/25 14:20 Active Medications Active Medications: Current Medications Generic Name Dose Route Start Last Admin Trade Name Freq PRN Reason Stop Dose Admin Cefazolin Sodium 2 gm/ Sodium 110 mls @ 150 mls/hr 04/02/25 11:30 Chloride IV 04/02/25 12:13 INTRAOP ONE [facility] Medical History Cancer Back pain Shortness of [...] 0951 > Date _ Ck Cotto MD [facility] Signature: Date CC: ~ Signed [facility]05-14-2025 Progress [facility] [address] [place] [address] OFFICE VISIT Date of Service: 03/28/25 1532 MR#: [id number] Acct: [id number] Name: UZMA MCDONALD YURIDIA Rep #: [id number] : 1970 From: Imani fair MD Age/Sex: 54/F Location[place] [facility] Status: Signed HPI Subjective Date of Service 03/28/25 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 The patient was seen in [facility] emergency room January 08, 2025 with [...] activity and tumor cell necrosis. IHC at [facility] positive for SMA, negative for desmin, STAT6, pancytokeratin, S100 and CD34. Additional IHC done at [facility] showed negative Desmin, negative Caldesmon, ER [...] mm left UVJ/posterior urinary bladder wall calculus. [facility] Medical History (Updated 03/28/25 @ 16:14 by [...] showed no malignant cells. Was seen at [facility] sarcoma clinic by Dr. Cunningham in [...] Follow-up with cycle 1. Imani Persaud MD [facility], [facility] Divisions of Medical Oncology & Hematology Department of Internal Medicine [place] [address] This note was generated using a voice [...] applicable) CC: Dr. [place] Fink MD ~ [facility]05-14-2025 Progress note Author Imani Persaud [facility] Note Date/Time March 28, 2025 4:15p [place] [address] [place] [address] OFFICE VISIT Date of Service: 03/28/25 1532 MR#: [id number] Acct: [id number] Name: UZMA MCDONALD Rep #: [id number] : 1970 From: Imani fair MD Age/Sex: 54/F Location: [facility] [place] [place] Status: Signed HPI Subjective Date of Service 03/28/25 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 The patient was seen in [facility] emergency room January 08, 2025 with [...] activity and tumor cell necrosis. IHC at [facility] positive for SMA, negative for desmin, STAT6, pancytokeratin, S100 and CD34. Additional IHC done at [facility] showed negative Desmin, negative Caldesmon, ER [...] mm left UVJ/posterior urinary bladder wall calculus. [facility] Medical History (Updated 03/28/25 @ 16:14 by [...] showed no malignant cells. Was seen at [facility] sarcoma clinic by Dr. Cunningham in [...] Follow-up with cycle 1. Imani Persaud MD [facility], [facility] Divisions of Medical Oncology & Hematology Department of Internal Medicine [place] [address] This note was generated using a voice [...] in the past year?: No 03/28/25 1615 <Electronically signed by Imani jones MD> Date _ Imani Persaud MD Cosigner Signature: Date (if applicable) CC: Dr. [place] Fink MD ~ [facility] Work Phone: 1(236) 339-385305-13-2025 NoteReceived is a request for second opinion consultation by Dr. Christopher Cunningham. [facility] slide review Preoperative Diagnosis: Multiple large fibroids, menorrhagia, chronic iron deficiency from chronic blood loss.[facility]tering HealthComment on above: Performed By: #### SURGP #### [facility] (DEFAULT) [address] [place] [address] [id number] Radiology Diagnostic study note [facility] Imaging Services [address] [place] [id number] Chest, Abd, Pel w/Contrast MR#: [id number] Acct: [id number] Name: UZMA MCDONALD Rep #: [id number] : 1970 F 54 From: Karen Estrada MD PCP: Dr. [place] Fink MD Status: MICHAELLE YLNN Study:CT Chest, Abd, Pel w/Contrast Date of E xam: 03/26/25 Exam# [id number] Ordering Dr: Imani Persaud MD PROCEDURE: CT [...] UVJ/posterior urinary bladder wall calculus. [facility] CC: Dr. Imani Persaud MD; Dr. [place] Fink MD ~ Wire Photo Operator: Signed [facility]05-12-2025 Evaluation note* Diagnosis Onset Date Resolution Status Admit Date Encounter for insertion of venous access port acute March 26 1:19pm Primary leiomyosarcoma of pelvis acute March 28, 2025 3:30pm Encounter for education acute M 2024 1:47pm Primary leiomyosarcoma of pelvis acute April 04, 2025 1:47pm Essential (primary) hypertension chronic April 18, 2025 10:44am High cholesterol chronic April 10:44am Tobacco abuse chronic April 18 10:44am History of coronary artery stent placement March 31, 2021 resolved April 18, 2025 10:44am Primary leiomyosarcoma of pelvis acute April 19, 2025 8:09am Primary leiomyosarcoma of pelvis acute April 26, 2025 8:12am Anemia acute May 03 10:20am Dark urine acute May 03 10:20am Primary leiomyosarcoma of pelvis acute May 03, 2025 10:20am Severe neutropenia acute April 152024 10:20am Anemia acute May 10 9:09am Encounter for chemotherapy management acute May 10, 2025 9:09am Primary leiomyosarcoma of pelvis acute May 10, 2025 9:09am Primary leiomyosarcoma of pelvis acute May 17, 2025 8:34am Encounter for chemotherapy management acute May 31, 2025 9:03am Hypokalemia acute May 31 9:03am 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 acute May 31 9:03am Primary leiomyosarcoma of pelvis acute May 31, 2025 9:03am Constipation acute June 07, 025 8:48am Encounter for chemotherapy management acute June 07, 2025 8:48am 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 acute June 07 8:48am Primary leiomyosarcoma of pelvis acute June 07, 2025 8:48am Elevated transaminase measurement noneactive June 07, 2025 8:48am Encounter for chemotherapy management acute June 14, 2025 8:58am Primary leiomyosarcoma of pelvis acute June 14, 2025 8:58am Primary leiomyosarcoma of pelvis acute June 28 8:43am [place] [facility] [employer] [facility] Work Phone: 1(443) 700-219505-12-2025 Evaluation note* Diagnosis Onset Date Resolution Status Admit Date Encounter for insertion of venous access port acute March 26 1:19pm Primary leiomyosarcoma of pelvis acute March 28, 2025 3:30pm Encounter for education acute M 2024 1:47pm Primary leiomyosarcoma of pelvis acute April 04, 2025 1:47pm Essential (primary) hypertension chronic April 18, 2025 10:44am High cholesterol chronic April 10:44am Tobacco abuse chronic April 18 10:44am History of coronary artery stent placement March 31, 2021 resolved April 18, 2025 10:44am Primary leiomyosarcoma of pelvis acute April 19, 2025 8:09am Primary leiomyosarcoma of pelvis acute April 26, 2025 8:12am Anemia acute May 03 10:20am Dark urine acute May 03 10:20am Primary leiomyosarcoma of pelvis acute May 03, 2025 10:20am Severe neutropenia acute April 152024 10:20am Anemia acute May 10 9:09am Encounter for chemotherapy management acute May 10, 2025 9:09am Primary leiomyosarcoma of pelvis acute May 10, 2025 9:09am Primary leiomyosarcoma of pelvis acute May 17, 2025 8:34am Encounter for chemotherapy management acute May 31, 2025 9:03am Hypokalemia acute May 31 9:03am 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 acute May 31 9:03am Primary leiomyosarcoma of pelvis acute May 31, 2025 9:03am Constipation acute June 07, 025 8:48am Encounter for chemotherapy management acute June 07, 2025 8:48am 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 acute June 07 8:48am Primary leiomyosarcoma of pelvis acute June 07, 2025 8:48am Elevated transaminase measurement noneactive June 07, 2025 8:48am Encounter for chemotherapy management acute June 14, 2025 8:58am Primary leiomyosarcoma of pelvis acute June 14, 2025 8:58am Primary leiomyosarcoma of pelvis acute June 28 8:43am 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 12 8:44am [place] [employer] Work Phone: 1(860) 690-510805-12-2025 NoteReceived is a request for second opinion consultation by Dr. Christopher Cunningham. [facility] slide review Clinical Information: Intra-abdominal and pelvic swelling, mass and lump, unspecified site - R19.00 [ICD-10-CM].Kettering HealthComment on above:Performed By: #### SURGP #### [facility] (DEFAULT) [address] [id number] History of Present illness Narrative* Kim Craven [...] offered a hysterectomy for heavy menstrual periods [id number] but this was not covered by insurance. [...] left adnexal mass. 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 07/27/2022 Heart [...] Resource Strain: Low Risk (01/26/2025) Received from [facility] Overall Financial Resource Strain (CARDIA) Difficulty of Paying Living Expenses: Not hard at all Food Insecurity: No Food Insecurity (01/26/2025) Received from [facility] Hunger Vital Sign Worried About Running Out of Food in the Last Year: Never true Ran Out of Food in the Last Year: Never true Transportation Needs: No Transportation Needs (01/26/2025) Received from [facility] PRAPARE - Transportation Lack of Transportation (Medical): No Lack of Transportation (Non-Medical): No Physical Activity: Inactive (01/26/2025) Received from [facility] Exercise Vital Sign Days of Exercise per Week: 0 days Minutes of Exercise per Session: 0 min Stress: Stress Concern Present (01/24/2023) Received from [facility] [place] [facility] - Occupational Stress Questionnaire Feeling of Stress : Rather much Social Connections: Moderately Isolated (01/24/2023) Received from [facility] Social Connection and Isolation Panel [NHANES] Frequency of Communication with Friends and Family: Three times a week Frequency of Social Gatherings with Friends and Family: Never Attends Amish Services: Never Active Member of Clubs or Organizations: No Attends Club or Organization Meetings: Not on file Marital Status: Personal Safety: Not At Risk (01/26/2025) Received from [facility] Humiliation, Afraid, Rape, and Kick questionnaire Fear of Current or Ex-Partner: No Emotionally Abused: No Physically Abused: No Sexually Abused: No Housing Stability: Unknown (01/26/2025) Received from [facility] Housing Stability Vital Sign Unable to Pay [...] use 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 Children 35,33,29,28 years old - no cancer history Half brother - no cancer history Parents - no cancer history Maternal grandparents - no cancer history Parental grandparents - unknown as father is adopted Current Medications: Current Outpatient Medications Medication Sig atorvastatin 80 MG tablet Take 1 tablet by mouth daily. nystatin [id number] UNIT/GM Cream Apply topically Twice daily. Sertraline [...] in addendum. Thiscase was sent to the [facility] with the above diagnosis for parts A and B rendered by Dr. Pierce. Below is Dr. Pierce's comment. 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 Immunochemical stains performed by [facility] and submitted for review show that the tumor cells are positive for SMA and negative for desmin, STAT6, pancytokeratin, S100 and CD34. Immunochemical stains were performed at the [facility] with the following results: - Desmin: [...] have [facility] ([facility], 05/28/22) and [facility]removal [facility] ([facility], 02/08/25) - We recommend local provider add [...] Patient to continue to follow up with [facility], local oncology, cardiology, and primary care [...] 2021 for multiple severe episodes of bleeding ([facility], Dr. May Saucedo); pathology demonstrated multiple leiomyomas. [...] (tumor #2), left oophorectomy, omentectomy (Dr. Grady, [place], [place]). 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 Tumor #2 was fragmented. On exam, she has no abdominal distention. Respirations are clear and unlabored. I [facility] to [facility] initial ALEX, from [facility], 05/28/2022 as well as the Ex lap, from [facility], 02/08/2025. I also recommended NGS testing (Klique xT, [employer]), including HRD status on her [...] slides for Pathology review ([facility]): [facility]LEX, from [facility], 05/28/2022 Ex lap, from [facility], 02/08/2025 [facility] Instructions* Patient Instructions* Kim Dela Cruz RN - 03/21/2025 1:00 PM EDT Starting on May 14, 2025, our clinic will be moving to the [facility] at [address] [place] [address], 4th floor. You may visit [email or web address] for additional information and driving directions. Garage and meter changes records clerk parking are available. Feel free to call our office with any questions. [facility] Dr. Christopher Cunningham, Dr. Mateo Bear, Dr. Davide Davis, and Dr. Usha Mueller PA-C, Leo Pettit RN, RN, Júnior Minor, RN, Era Caraballo, RAMONE, Shawna Dela Cruz RN [address] [place] [address] Hand Tile Maker: Jazmine MCELROY [phone] Patient Care Customer Service Administrator RN: Pancho Urias [phone] + Susy Estrella [phone] Please allow 10-14 business days for the [...] do not send urgent requests through your MyChart since these messages are not monitored as frequently throughout the day as phone calls. Results of imaging and pathology will be discussed at your follow up office visit with your provider. Our office does not give imaging or pathology results over the phone. If you have questions regarding the approval of imaging that is scheduled, please call [facility] pre-certification line at [phone] to obtain that information. We know your [...] Experience General Line . [facility] Evaluation note * Diagnosis Onset Date Resolution Status Admit Date Primary leiomyosarcoma of pelvis acute February 26, 2025 10:59am Encounter for insertion of venous access port acute March 26 1:19pm Primary leiomyosarcoma of pelvis acute March 28, 2025 3:30pm Encounter for education acute M 2024 1:47pm Primary leiomyosarcoma of pelvis acute April 04, 2025 1:47pm Essential (primary) hypertension chronic April 18, 2025 10:44am High cholesterol chronic April 10:44am Tobacco abuse chronic April 18, 2 025 10:44am History of coronary artery stent placement March 31, 2021 resolved April 18, 2025 10:44am Primary leiomyosarcoma of pelvis acute April 19, 2025 8:09am Primary leiomyosarcoma of pelvis acute April 26, 2025 8:12am Anemia acute May 03 10:20am Dark urine acute May 03 10:20am Primary leiomyosarcoma of pelvis acute May 03, 2025 10:20am Severe neutropenia acute April 152024 10:20am Anemia acute May 10 9:09am Encounter for chemotherapy management acute May 10, 2025 9:09am Primary leiomyosarcoma of pelvis acute May 10, 2025 9:09am [facility] Work Phone: [phone]) 591-593804-14-2025 Evaluation note* Diagnosis Onset Date Resolution Status Admit Date Primary leiomyosarcoma of pelvis acute February 26, 2025 10:59am Encounter for insertion of venous access port acute March 26 1:19pm Primary leiomyosarcoma of pelvis acute March 28, 2025 3:30pm Encounter for education acute M ay 2024 1:47pm Primary leiomyosarcoma of pelvis acute April 04, 2025 1:47pm Essential (primary) hypertension chronic April 18, 2025 10:44am High cholesterol chronic April 10:44am Tobacco abuse chronic April 18, 025 10:44am History of coronary artery stent placement March 31, 2021 resolved April 18, 2025 10:44am Primary leiomyosarcoma of pelvis acute April 19, 2025 8:09am Primary leiomyosarcoma of pelvis acute April 26, 2025 8:12am Anemia acute May 03 10:20am Dark urine acute May 03 10:20am Primary leiomyosarcoma of pelvis acute May 03, 2025 10:20am Severe neutropenia acute April 152024 10:20am Anemia acute May 10 9:09am Encounter for chemotherapy management acute May 10, 2025 9:09am Primary leiomyosarcoma of pelvis acute May 10, 2025 9:09am Primary leiomyosarcoma of pelvis acute May 17, 2025 8:34am Primary leiomyosarcoma of pelvis acute May 31, 2025 9:03am [facility] Work Phone: [phone]) 352-317104-14-2025 Evaluation note* Diagnosis Onset Date Resolution Status Admit Date Primary leiomyosarcoma of pelvis acute February 26, 2025 10:59am Encounter for insertion of venous access port acute March 26 1:19pm Primary leiomyosarcoma of pelvis acute March 28, 2025 3:30pm Encounter for education acute M ay 2024 1:47pm Primary leiomyosarcoma of pelvis acute April 04, 2025 1:47pm Essential (primary) hypertension chronic April 18, 2025 10:44am High cholesterol chronic April 10:44am Tobacco abuse chronic April 18 025 10:44am History of coronary artery stent placement March 31, 2021 resolved April 18, 2025 10:44am Primary leiomyosarcoma of pelvis acute April 19, 2025 8:09am Primary leiomyosarcoma of pelvis acute April 26, 2025 8:12am Anemia acute May 03 10:20am Dark urine acute May 03 10:20am Primary leiomyosarcoma of pelvis acute May 03, 2025 10:20am Severe neutropenia acute April 152024 10:20am Anemia acute May 10 9:09am Encounter for chemotherapy management acute May 10, 2025 9:09am Primary leiomyosarcoma of pelvis acute May 10, 2025 9:09am Primary leiomyosarcoma of pelvis acute May 17, 2025 8:34am Encounter for chemotherapy management acute May 31, 2025 9:03am Hypokalemia acute May 31 9:03am 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 acute May 31 9:03am Primary leiomyosarcoma of pelvis acute May 31, 2025 9:03am Encounter for chemotherapy management acute June 07, 2025 8:48am 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 acute June 07 8:48am Primary leiomyosarcoma of pelvis acute June 07, 2025 8:48am Elevated transaminase measurement noneactive June 07, 2025 8:48am [facility] Work Phone: 1([phone]) 781-485804-14-2025 Evaluation note* Diagnosis Onset Date Resolution Status Admit Date Primary leiomyosarcoma of pelvis acute February 26, 2025 10:59am Encounter for insertion of venous access port acute March 26 1:19pm Primary leiomyosarcoma of pelvis acute March 28, 2025 3:30pm Encounter for education acute M 2024 1:47pm Primary leiomyosarcoma of pelvis acute April 04, 2025 1:47pm Essential (primary) hypertension chronic April 18, 2025 10:44am High cholesterol chronic April 10:44am Tobacco abuse chronic April 18 025 10:44am History of coronary artery stent placement March 31, 2021 resolved April 18, 2025 10:44am Primary leiomyosarcoma of pelvis acute April 19, 2025 8:09am Primary leiomyosarcoma of pelvis acute April 26, 2025 8:12am Anemia acute May 03 10:20am Dark urine acute May 03 10:20am Primary leiomyosarcoma of pelvis acute May 03, 2025 10:20am Severe neutropenia acute April 152024 10:20am Anemia acute May 10 9:09am Encounter for chemotherapy management acute May 10, 2025 9:09am Primary leiomyosarcoma of pelvis acute May 10, 2025 9:09am Primary leiomyosarcoma of pelvis acute May 17, 2025 8:34am Encounter for chemotherapy management acute May 31, 2025 9:03am Hypokalemia acute May 31 9:03am 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 acute May 31 9:03am Primary leiomyosarcoma of pelvis acute May 31, 2025 9:03am Constipation acute June 07, 025 8:48am Encounter for chemotherapy management acute June 07, 2025 8:48am 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 acute June 07 8:48am Primary leiomyosarcoma of pelvis acute June 07, 2025 8:48am Elevated transaminase measurement noneactive June 07, 2025 8:48am [facility] Work Phone: 1(157) 229-741104-14-2025 Evaluation note* Diagnosis Onset Date Resolution Status Admit Date Primary leiomyosarcoma of pelvis acute February 26, 2025 10:59am Encounter for insertion of venous access port acute March 26 1:19pm Primary leiomyosarcoma of pelvis acute March 28, 2025 3:30pm Encounter for education acute M 2024 1:47pm Primary leiomyosarcoma of pelvis acute April 04, 2025 1:47pm Essential (primary) hypertension chronic April 18, 2025 10:44am High cholesterol chronic April 10:44am Tobacco abuse chronic April 18, 2 025 10:44am History of coronary artery stent placement March 31, 2021 resolved April 18, 2025 10:44am Primary leiomyosarcoma of pelvis acute April 19, 2025 8:09am Primary leiomyosarcoma of pelvis acute April 26, 2025 8:12am Anemia acute May 03 10:20am Dark urine acute May 03 10:20am Primary leiomyosarcoma of pelvis acute May 03, 2025 10:20am Severe neutropenia acute April 152024 10:20am Anemia acute May 10 9:09am Encounter for chemotherapy management acute May 10, 2025 9:09am Primary leiomyosarcoma of pelvis acute May 10, 2025 9:09am Primary leiomyosarcoma of pelvis acute May 17, 2025 8:34am Encounter for chemotherapy management acute May 31, 2025 9:03am Hypokalemia acute May 31 9:03am 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 acute May 31 9:03am Primary leiomyosarcoma of pelvis acute May 31, 2025 9:03am Constipation acute June 07, 025 8:48am Encounter for chemotherapy management acute June 07, 2025 8:48am 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 acute June 07 8:48am Primary leiomyosarcoma of pelvis acute June 07, 2025 8:48am Elevated transaminase measurement noneactive June 07, 2025 8:48am Encounter for chemotherapy management acute June 14, 2025 8:58am Primary leiomyosarcoma of pelvis acute June 14, 2025 8:58am [facility] Work Phone: [phone] 631-182604-04-2025 Telephone encounter Note* Telephone Encounter - Darvin Grady MD - 02/16/2025 11:13 AM EDT Pt called with path, to see Med Onc . Rec chemo. To see after chemo to discuss retirement surveillance [facility] Work Phone: 1([phone]) 127-745504-04-2025 Miscellaneous Notes* Telephone Encounter - Darvin Grady MD - 02/16/2025 11:13 AM EDT Pt called with path, to see Med Onc . Rec chemo. To see after chemo to discuss technician terminal and repeater surveillance documented in this encounterSumma [id number] Telephone encounter Note* Telephone Encounter - Daquan Boyce - 02/15/2025 11:06 AM EDT Faxed to Dr. Persaud at [phone] via [email or web address]. Confirmation scanned within media [id number] Telephone encounter Note* Telephone Encounter - Daquan Boyce - 02/15/2025 11:06 AM EDT ----- Message from Darvin Grady MD sent at 02/14/2025 3:41 PM EDT ----- Plz fax to Dr Lopez at [facility] ----- Message ----- From: [employer] Valerie Kapoor Sent: 01/31/2025 1:18 PM EDT To: Darvin Grady MD [id number] Miscellaneous Notes* Telephone Encounter - Daquan Boyce - 02/15/2025 11:06 AM EDT Faxed to Dr. Persaud at [phone] via [email or web address]. Confirmation scanned within media * Telephone Encounter - Daquan Boyce - 02/15/2025 11:06 AM EDT ----- Message from Darvin Grady MD sent at 02/14/2025 3:41 PM EDT ----- Plz fax to Dr Lopez at [facility] ----- Message ----- From: [employer] Valerie Kapoor Sent: 01/31/2025 1:18 PM EDT To: Darvin Grady MD documented in this [place] [id number] Telephone encounter Note* Telephone Encounter - SREEDHAR Klein CNP - 02/14/2025 3:[address] Grady request, Called Dr Persaud's office at [facility] and provided recommendation for gemzar/taxotere for leiomyosarcoma. Dr Grady requested they send patient back to see him after chemo is completed. He does not need to see her before then. Called patient and informed her ofsame. She verbalized understanding and agreement with plan. [place] [id number] Miscellaneous Notes* Telephone Encounter - SREEDHAR Klein CNP - 02/14/2025 3:[address] Grady request, Called Dr Persaud's office at [facility] and provided recommendation for gemzar/taxotere for leiomyosarcoma. Dr Grady requested they send patient back to see him after chemo is completed. He does not need to see her before then. Called patient and informed her ofsame. She verbalized understanding and agreement with plan. documented in this [place] [address]-02-2025 History of Present illness Narrative* SREEDHAR Klein [...] in addendum. Thiscase [facility] with the above diagnosis for parts A and B rendered by Dr. Pierce. Below is Dr. Pierce's comment. 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 Immunochemical stains performed by [facility] and submitted for review show that the tumor cells are positive for SMA and negative for desmin, STAT6, pancytokeratin, S100 and CD34. Immunochemical stains were performed at the [facility] with the following results: - Desmin: [...] pt would like to get chemo at [facility] center near her house - Discussed some [...] care as described above. documented in this [facility]04-02-2025 Telephone encounter Note* Telephone Encounter - Darvin Grady MD - 02/14/2025 10:35 AM EDT [facility]: 1(713) 964-548904-02-2025 Miscellaneous Notes* Telephone Encounter - Darvin Grady MD - 02/14/2025 10:35 AM EDT Mail box full documented in this [facility]03-15-2025 NoteSinus rhythm Low voltage, precordial leads Poor R wave progression Electronically Signed On 01-27-2025 11:41:44 EDT by [facility] 01-27-2025 NoteSinus rhythm Low voltage, precordial leads Poor R wave progression Electronically Signed On 01-27-2025 11:41:44 EDT by [facility] 01-27-2025 NoteIMPRESSION: Sinus rhythm Low voltage, precordial leads Poor R wave progression Electronically Signed On 01-27-2025 11:41:[address] [facility]03-15-2025 NoteGyn ONC Discharge Summary Patient Name: Umza Mcdonald Patient : 1970 Primary Care Physician: [...] Your Medications These medications were sent to [facility] [address] [place] [address] Hours: Wednesday to Wednesday 10 am to [...] restrictions reviewed. Reyna Mcgill DO 01/27/2025, 9:51 [facility] [id number] Hospital course Narrative* Reyna Mcgill DO - 01/27/2025 9:50 AM EDT Images from the original note were not included. Remote Broadcast Technician ONC Discharge Summary Patient Name: Uzma Mcdonald Patient : 1970 Primary Care Physician: David Fink MD Admit Date: 01/26/2025 Attending Provider: Dravin Grady MD Principal Diagnosis: Postoperative state, s/p [...] Your Medications These medications were sent to [facility] [address] [place], [place] [address] [address] Hours: Wednesday to Wednesday 10 am to [...] 01/27/2025 6:08 PM EDT documented in this [facility]03-15-2025 History of Present illness Narrative* Reyna Mcgill DO - 01/27/2025 6:09 AM EDT Images from the original note were not included. PRESCHOOL PARAPROFESSIONAL Progress Note Please page the [facility] PRESCHOOL PARAPROFESSIONAL ONC Call RES group via Secure Chat for any questions or concerns. Date: 01/27/2025 Time: 6:09 AM Uzma Freetage 54 y.o. female , POD#1 s/p ExLap,Removal [...] QTC Interval 01/26/2025 418 ms Final P Tyro 01/26/2025 53 degrees Final QRS Tyro 01/26/2025 56 degrees Final T Wave Tyro 01/26/2025 53 degrees Final CA Interval 01/26/2025 185 ms Final Auto WBC [...] 9.0 - 12.7 fL Final Assessment/Plan: Uzma Mcdonald 54 y.o. female , POD#1 [...] will discuss with attending HTN Hx of [place] -On Lopressor and cozaar -On Plavix and bASA at home Principal Problem: Pelvic mass Please page the [facility] PRESCHOOL PARAPROFESSIONAL ONC Call RES group via Secure Chat [...] answered. Sumaya Marroquin MD documented in this [facility]03-15-2025 Plan of care note* Care Plan - Veda Hickman RN - 01/27/2025 5:04 AM EDT Problem: Pain - Adult Goal: Verbalizes/displays adequate comfort level or baseline comfort level Outcome: Progressing Problem: Safety - Adult Goal: Free from fall injury Outcome: Progressing Problem: Discharge Planning Goal: Discharge to home or other facility with appropriate resources Outcome: Progressing [id number] Miscellaneous Notes* Care Plan - Veda Hickman [...] resected. Hemostasis was with several small 3-0 Odfhtpxfuinl-sn-fspka's in the bladder peritoneum Bovie cautery as [...] 01/26/25 0928 Routine Description: LEFT OVARY Staff: Consumer Loan Specialist: Dora Castro RN Scrub Person: Daysi Escobar RN [place] to Circ: Sabrina Philip RN Findings: Leiomyosarcoma [...] receiving Vancomycin or flouroquinolone) documented in this [facility]03-14-2025 Plan of care note* Care Plan - Jenny Torres RN - 01/26/2025 5:49 PM EDT Problem: Pain - Adult Goal: Verbalizes/displays adequate comfort level or baseline comfort level Outcome: Progressing Problem: Safety - Adult Goal: Free from fall injury Outcome: Progressing Problem: Discharge Planning Goal: Discharge to home or other facility with appropriate resources Outcome: Progressing [id number] Nurse Note* Jenny Torres RN - 01/26/2025 4:40 PM EDT Meds to Beds delivered to patient. Pt declined oxycodone prescription and sent back with Meds to Beds. [id number] Nurse Note* Jenny Torres RN - 01/26/2025 4:40 PM EDT Meds to Beds delivered to patient. Pt declined oxycodone prescription and sent back with Meds to Beds. * Roxy Jimenez RN - 01/26/2025 10:34 AM EDT Patient family/visitor updated by RN at this time. documented in this [facility]03-14-2025 Nurse Note* Perioperative Nursing Note - Addy Donald RN - 01/26/2025 11:31 AM EDT Report given to Jenny PACK [id number] Nurse Note* Perioperative Nursing Note - Addy Donald RN - 01/26/2025 11:26 AM EDT Faxed report sheet to [id number] Nurse Note* Roxy Jimenez RN - 01/26/2025 10:34 AM EDT Patient family/visitor updated by RN at this time. [id number] Hospital Discharge instructions* Discharge Instructions* Wendie Thompson DO - 01/26/2025 10:34 AM EDT Please follow your post operative care instructions given to you by your Camp Tender Oncologist's office at your pre operative visit. Please call the office with questions or concerns and be sure to follow up at your scheduled post operative visit. * Attachments The following attachments cannot be sent through Care Everywhere. * Exploratory Laparotomy Discharge Instructions (Angolan) documented in this [facility]03-14-2025 NotePatient: Uzma Mcdonald Procedure Summary Date: 01/26/25 Room / Location: [place] [address] Operating Room Anesthesia Start: 822 Anesthesia Stop: [...] Allowed opportunity for questions and acknowledgement of understanding.[facility] [id number] NotePatient: Uzma Freetaconnie Procedure Summary Date: 01/26/25 Room / Location: [address] Operating Room Anesthesia Start: 822 Anesthesia Stop: 102 Procedures: EXPLORATORY LAPAROTOMY, LEFT OOPHORECTOMY, RESECTION OF [...] discharged once all PACU criteria has been met.[facility] [id number] NoteAirway Date/Time: 01/26/2025 8:29 AM Urgency: scheduled Airway not difficult General Information and Staff Patient location during procedure: Procedural Resident/COOK FISH EGGS: Skip Whittaker CRNA Performed: SRNA and COOK FISH EGGS Indications and Patient Condition Indications for airway [...] approach: 1 Number of other approaches attempted: [address] [place], [place] [address]-14-2025 Note Peripheral Block Time Out: 01/26/2025 8:35 AM Patient location during procedure: Procedural Start time: 01/26/2025 8:35 AM End time: 01/26/2025 8:35 AM Reason for block: at surgeon's request and post-op pain management Staffing Performed: NABEEL Resident/COOK FISH EGGS: SREEDHAR Puri CRNA Preanesthetic Checklist Completed: patient identified, IV checked, site marked, risks and benefits discussed, surgical consent, monitors and equipment checked, pre-op evaluation and timeout performed Region: [place] Primary: TAP (Bupivacaine 0.375%/ Epi 1:200,000/ Dex 0.1mg/mL 40ml divided evenly bilateral) Secondary: Upper rectus (Bupivacaine 0.375%/ Epi 1:200,000/ Dex 0.1mg/mL 20ml divided evenly bilateral) Peripheral Block Patient position: supine Prep: ChloraPrep Patient monitoring: heart rate, phototypesetting equipment monitor, continuous pulse ox and continuous capnometry O2: [...] plane. and Local anesthetic injected without difficultyMedications qoyFLOOLnhtgq-dbfmwtigkte-sdeugwugtqd (TAP) syringe - Injection 60 mL - 01/26/2025 8:35:00 [facility] [id number] Procedure note* Op Note - Darvin Grady [...] resected. Hemostasis was with several small 3-0 Acozzutbjdhw-pt-jcnhx's in the bladder peritoneum Bovie cautery as [...] cover room in stable condition by anesthesia [id number] Procedure note* Brief Op Note - Darvin Grady MD - 01/26/2025 8:22 AM EDT Date: 01/26/2025 Location: [facility] OR Name: Uzma Mcdonald, : 1970, [...] 01/26/25 0928 Routine Description: LEFT OVARY Staff: Consumer Loan Specialist: Dora Castro RN Scrub Person: Daysi Escobar RN [place] to Circ: Sabrina Philip RN Findings: Leiomyosarcoma [...] (two hours if receiving Vancomycin or flouroquinolone) [facility] [id number] NotePatient: Uzma Freetage Procedure Information Date/Time: 01/26/25829 Procedures: LAPAROTOMY, EXPLORATORY (Abdomen) - 1 HOUR GENERAL TAP BLOCK LEFT LAPAROSCOPIC, SALPINGO-OOPHORECTOMY (Left: Abdomen) POSSIBLE LYMPHADENECTOMY, PARA-AORTIC OR PELVIC, LIMITED, FOR STAGING (Abdomen) LAPAROSCOPY, WITH BIOPSY (Abdomen) Location: [facility] OR [address] [place] [address] Operating Room Surgeons: Darvin Grady MD Relevant [...] voltage, precordial leads Equipment Requests: [facility] Attending History and physical note* Darvin Grady MD - 01/26/2025 7:05 AM EDT H&P reviewed. The patient was examined and there are no changes to the H&P. Source Note - Darvin Grady MD - 01/17/2025 10:30 AM EST Images from the original note were not included. HPI: Uzma Mcdonald is a pleasant 54 y.o. female who presents in consultation [facility] Dr. [facility]aud [facility] and management of left pelvic mass. [...] withRSO in the past. 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 Denies [...] Resource Strain: Low Risk (01/24/2023) Received from [facility] Overall Financial Resource Strain (CARDIA) Difficulty of Paying Living Expenses: Not very hard Food Insecurity: No Food Insecurity (01/24/2023) Received from [facility] Hunger Vital Sign Worried About Running Out of Food in the Last Year: Never true Ran Out of Food in the Last Year: Never true Transportation Needs: No Transportation Needs (01/24/2023) Received from [facility] PRAPARE - Transportation Lack of Transportation (Medical): No Lack of Transportation (Non-Medical): No Physical Activity: Insufficiently Active (01/24/2023) Received from [facility] Exercise Vital Sign Days of Exercise per Week: 2 days Minutes of Exercise per Session: 20 min Stress: Stress Concern Present (01/24/2023) Received from [facility] - Occupational Stress Questionnaire Feeling of Stress : Rather much Social Connections: Moderately Isolated (01/24/2023) Received from [facility] Social Connection and Isolation Panel [NHANES] Frequency of Communication with Friends and Family: Three times a week Frequency of Social Gatherings with Friends and Family: Never Attends Amish Services: Never Active Member of Clubs or Organizations: No Marital Status: Housing Stability: Low Risk (01/24/2023) Received from [facility] Housing Stability Vital Sign Unable to [...] nursing note reviewed. Exam conducted with a intermediate designer present. Constitutional: Appearance: She is obese. Cardiovascular: [...] on date of service as well as xrty-oj-jjsr counseling with patient was 35 minutes Patient has been asked to stop her Plavix 5 days before surgery [employer] Phone: 1([phone]) 540-955703-14-2025 NoteH&P reviewed. The patient was examined and there are no changes to the H&P.[employer] [id number] History and physical note* Darvin Grady MD [...] withRSO in the past. 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 Denies [...] Resource Strain: Low Risk (01/24/2023) Received from [facility] Overall Financial Resource Strain (CARDIA) Difficulty of Paying Living Expenses: Not very hard Food Insecurity: No Food Insecurity (01/24/2023) Received from [facility] Hunger Vital Sign Worried About Running Out of Food in the Last Year: Never true Ran Out of Food in the Last Year: Never true Transportation Needs: No Transportation Needs (01/24/2023) Received from [facility] PRAPARE - Transportation Lack of Transportation (Medical): No Lack of Transportation (Non-Medical): No Physical Activity: Insufficiently Active (01/24/2023) Received from [facility] Exercise Vital Sign Days of Exercise per Week: 2 days Minutes of Exercise per Session: 20 min Stress: Stress Concern Present (01/24/2023) Received from [facility] [employer] [place] [facility] [employer] - Occupational Stress Questionnaire Feeling of Stress : Rather much Social Connections: Moderately Isolated (01/24/2023) Received from [facility] Social Connection and Isolation Panel [NHANES] Frequency of Communication with Friends and Family: Three times a week Frequency of Social Gatherings with Friends and Family: Never Attends Amish Services: Never Active Member of Clubs or Organizations: No Marital Status: Housing Stability: Low Risk (01/24/2023) Received from [facility] Housing Stability Vital Sign Unable to [...] nursing note reviewed. Exam conducted with a intermediate designer present. Constitutional: Appearance: She is obese. Cardiovascular: [...] on date of service as well as ozng-tq-wgcp counseling with patient was 35 minutes Patient has been asked to stop her Plavix 5 days before surgery documented in this [facility]03-07-2025 Telephone encounter Note* Telephone Encounter - Audelia Sams - 01/19/2025 11:38 AM EST PAT 01.23.2025 at 9:30 am by phone SX: 04.28.2025 at 8:30 am arrival at 6:30 am Post op 02.09.2025 at 11 am Folder and instructions given. [id number] Miscellaneous Notes* Telephone Encounter - Audelia Sams - 01/19/2025 11:38 AM EST PAT 01.23.2025 at 9:30 am by phone SX: 04.28.2025 at 8:30 am arrival at 6:30 am Post op 02.09.2025 at 11 am Folder and instructions given. documented in this [facility]03-05-2025 History of Present illness Narrative* Darvin Grady [...] withRSO in the past. 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 Denies [...] Resource Strain: Low Risk (01/24/2023) Received from [facility] Overall Financial Resource Strain (CARDIA) Difficulty of Paying Living Expenses: Not very hard Food Insecurity: No Food Insecurity (01/24/2023) Received from [facility] Hunger Vital Sign Worried About Running Out of Food in the Last Year: Never true Ran Out of Food in the Last Year: Never true Transportation Needs: No Transportation Needs (01/24/2023) Received from [facility] PRAPARE - Transportation Lack of Transportation (Medical): No Lack of Transportation (Non-Medical): No Physical Activity: Insufficiently Active (01/24/2023) Received from [facility] Exercise Vital Sign Days of Exercise per Week: 2 days Minutes of Exercise per Session: 20 min Stress: Stress Concern Present (01/24/2023) Received from [facility] - Occupational Stress Questionnaire Feeling of Stress : Rather much Social Connections: Moderately Isolated (01/24/2023) Received from [facility] Social Connection and Isolation Panel [NHANES] Frequency of Communication with Friends and Family: Three times a week Frequency of Social Gatherings with Friends and Family: Never Attends Amish Services: Never Active Member of Clubs or Organizations: No Marital Status: Housing Stability: Low Risk (01/24/2023) Received from [facility] Housing Stability Vital Sign Unable to [...] nursing note reviewed. Exam conducted with a intermediate designer present. Constitutional: Appearance: She is obese. Cardiovascular: [...] on date of service as well as [id number] counseling with patient was 35 minutes Patient has been asked to stop her Plavix 5 days before surgery * Susy Blake MA - 01/17/2025 10:30 AM EST Online Communications Manager was offered to the patient for exam. Patient accepted, ophthalmic medical technician in room during exam documented in this [facility]03-05-2025 NoteHPI: Uzma Mcdonald is a pleasant 54 [...] RSO in the past. 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 Denies [...] Resource Strain: Low Risk (01/24/2023) Received from [facility] Overall Financial Resource Strain (CARDIA) Difficulty of Paying Living Expenses: Not very hard Food Insecurity: No Food Insecurity (01/24/2023) Received from [facility] Hunger Vital Sign Worried About Running Out of Food in the Last Year: Never true Ran Out of Food in the Last Year: Never true Transportation Needs: No Transportation Needs (01/24/2023) Received from [facility] PRAPARE - Transportation Lack of Transportation (Medical): No Lack of Transportation (Non-Medical): No Physical Activity: Insufficiently Active (01/24/2023) Received from [facility] Exercise Vital Sign Days of Exercise per Week: 2 days Minutes of Exercise per Session: 20 min Stress: Stress Concern Present (01/24/2023) Received from [facility] [employer] - Occupational Stress Questionnaire Feeling of Stress : Rather much Social Connections: Moderately Isolated (01/24/2023) Received from [facility] Social Connection and Isolation Panel [NHANES] Frequency of Communication with Friends and Family: Three times a week Frequency of Social Gatherings with Friends and Family: Never Attends Amish Services: Never Active Member of Clubs or Organizations: No Marital Status: Housing Stability: Low Risk (01/24/2023) Received from [facility] Housing Stability Vital Sign Unable to [...] nursing note reviewed. Exam conducted with a intermediate designer present. Constitutional: Appearance: She is obese. Cardiovascular: Rate and Rhythm: Normal rate and regular rhythm. Pulmonary: Effort: Pulmonary effort is normal. Breath sounds: Normal breath sounds. Abdominal: General: Abdomen is flat. A surgical scar is present. Palpations: Abdomen is soft. There is mass. Tenderness: There is abdominal tenderness. Comments: (more content not included)...[facility]03-05-2025 Note HPI: Uzma Mcdonald is a pleasant [...] RSO in the past. 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 Denies [...] Resource Strain: Low Risk (01/24/2023) Received from [facility] Overall Financial Resource Strain (CARDIA) Difficulty of Paying Living Expenses: Not very hard Food Insecurity: No Food Insecurity (01/24/2023) Received from [facility] Hunger Vital Sign Worried About Running Out of Food in the Last Year: Never true Ran Out of Food in the Last Year: Never true Transportation Needs: No Transportation Needs (01/24/2023) Received from [facility] PRAPARE - Transportation Lack of Transportation (Medical): No Lack of Transportation (Non-Medical): No Physical Activity: Insufficiently Active (01/24/2023) Received from [facility] Exercise Vital Sign Days of Exercise per Week: 2 days Minutes of Exercise per Session: 20 min Stress: Stress Concern Present (01/24/2023) Received from [facility] [employer] - Occupational Stress Questionnaire Feeling of Stress : Rather much Social Connections: Moderately Isolated (01/24/2023) Received from [facility] Social Connection and Isolation Panel [NHANES] Frequency of Communication with Friends and Family: Three times a week Frequency of Social Gatherings with Friends and Family: Never Attends Amish Services: Never Active Member of Clubs or Organizations: No Marital Status: Housing Stability: Low Risk (01/24/2023) Received from [facility] Housing Stability Vital Sign Unable to [...] nursing note reviewed. Exam conducted with a intermediate designer present. Constitutional: Appearance: She is obese. Cardiovascular: Rate and Rhythm: Normal rate and regular rhythm. Pulmonary: Effort: Pulmonary effort is normal. Breath sounds: Normal breath sounds. Abdominal: General: Abdomen is flat. A surgical scar is present. Palpations: Abdomen is soft. There is mass. Tenderness: There is abdominal tenderness. Comments: (more content not included)...[facility]02-28-2025 Radiology Diagnostic study note [facility] Imaging Services [address] [place], [place] [address] Transvaginal Non- MR#: [id number] Acct: [id number] Name: UZMA MCDONALD YURIDIA Rep #: [id number] : 1970 F 54 From: Jake Canales MD PCP: Dr. David Fink MD Status: REG C MELISSA Study:Transvaginal Non- Date of Exam: 01/12/25 Exam# [id number] Ordering Dr: Imani Persaud MD PROCEDURE: TRANSVAGINAL [...] process should be ruled out. Reading Location: [id number] CC: Dr. Imani Persaud MD; Dr. David Fink MD ~ Wire Photo Operator: Signed [facility]02-26-2025 Evaluation note* Diagnosis Onset Date Resolution Status Admit Date Pelvic mass inactive December 12:54pm [facility] Work Phone: 1(703) 316-759902-26-2025 Evaluation note* Diagnosis Onset Date Resolution Status Admit Date Pelvic mass inactive December 12:54pm Primary leiomyosarcoma of pelvis acute February 26, 2025 10:59am Encounter for insertion of venous access port acute March 26 1:19pm Primary leiomyosarcoma of pelvis acute March 28, 2025 3 :30pm [place] [employer] Work Phone: 1(670) 936-316902-26-2025 Evaluation note* Diagnosis Onset Date Resolution Status Admit Date Pelvic mass inactive December 12:54pm Primary leiomyosarcoma of pelvis acute February 26, 2025 10:59am Encounter for insertion of venous access port acute March 26 1:19pm Primary leiomyosarcoma of pelvis acute March 28, 2025 3 :30pm Encounter for education acute M 2024 1:47pm Primary leiomyosarcoma of pelvis acute April 04, 2025 1 :47pm [place] [employer] [facility] Work Phone: 1(328) 782-584602-26-2025 Evaluation note* Diagnosis Onset Date Resolution Status [...] April 10:44am Tobacco abuse chronic April 18, 025 10:44am History of coronary artery stent placement March 31, 2021 resolved April 18, 2025 1 0:44am Primary leiomyosarcoma of pelvis acute April 19, 2025 8 :09am [place] [employer] [facility] Work Phone: 1(463) 207-359602-26-2025 Evaluation note* Diagnosis Onset Date Resolution Status [...] chronic April 10:44am Tobacco abuse chronic April 18 025 10:44am History of coronary artery stent placement March 31, 2021 resolved April 18, 2025 1 0:44am Primary leiomyosarcoma of pelvis acute April 19, 2025 8 :09am Primary leiomyosarcoma of pelvis acute April 26, 2025 8:12am [place] [employer] Work Phone: 1(369) 673-643702-26-2025 Evaluation note* Diagnosis Onset Date Resolution Status [...] April 10:44am Tobacco abuse chronic April 18, 025 10:44am History of coronary artery stent placement March 31, 2021 resolved April 18, 2025 1 0:44am [place] [employer] Work Phone: 1(110) 571-802702-26-2025 Evaluation note* Diagnosis Onset Date Resolution Status [...] April 10:44am Tobacco abuse chronic April 18, 025 10:44am History of coronary artery stent placement March 31, 2021 resolved April 18, 2025 1 0:44am Primary leiomyosarcoma of pelvis acute April 19, 2025 8 :09am Primary leiomyosarcoma of pelvis acute April 26, 2025 8:12am Primary leiomyosarcoma of pelvis acute May 03, 2025 10:20am [place] [employer] Work Phone: 1(142) 382-792102-26-2025 Evaluation note* Diagnosis Onset Date Resolution Status [...] of pelvis acute April 26, 2025 8:12am Anemia acute May 03 10:20am Dark urine acute May 03 10:20am Primary leiomyosarcoma of pelvis acute May 03, 2025 10:20am Severe neutropenia acute April 152024 10:20am [facility] Work Phone: 1(103) 310-844702-26-2025 Evaluation note* Diagnosis Onset Date Resolution Status Admit Date Pelvic mass inactive December 12:54pm Primary leiomyosarcoma of pelvis acute February 26, 2025 10:59am Encounter for insertion of venous access port acute March 26 1:19pm Primary leiomyosarcoma of pelvis acute March 28, 2025 3 :30pm Encounter for education acute M 2024 1:47pm Primary leiomyosarcoma of pelvis acute April 04, 2025 1 :47pm Essential (primary) hypertension chronic April 18, 2025 1 0:44am High cholesterol chronic April 10:44am Tobacco abuse chronic April 18, 025 10:44am History of coronary artery stent placement March 31, 2021 resolved April 18, 2025 1 0:44am Primary leiomyosarcoma of pelvis acute April 19, 2025 8 :09am Primary leiomyosarcoma of pelvis acute April 26, 2025 8:12am Anemia acute May 03 10:20am Dark urine acute May 03 10:20am Primary leiomyosarcoma of pelvis acute May 03, 2025 10:20am Severe neutropenia acute April 152024 10:20am Anemia acute May 10 9:09am Encounter for chemotherapy management acute May 10, 2025 9:09am Primary leiomyosarcoma of pelvis acute May 10, 2025 9:09am [facility] Work Phone: 1(699) 441-1048394581-95-2015 Telephone encounter Note* Telephone Encounter - Nayana Steele MA - 12/25/2024 2:29 PM EST Patient given results and verbalized understanding of instructions given. Nayana Steele MA [facility]02-10-2025 Miscellaneous Notes* Telephone Encounter - Nayana [...] blood in the urine. [facility]25 Telephone encounter Note * Telephone Encounter - Chace Tobias PA - 12/25/2024 11:48 AM EST Please contact patient and let her know that urine culture revealed no UTI. She needs close follow-up with primary care doctor to ensure resolution of blood in the urine. [facility] Work Phone: 1(839) 946-198102-09-2025 NoteHNO ID: [id number] Author: ISAÍAS RIBEIRO APRN.DOCUMENT MANAGEMENT TECHNICIAN Service: ? Author Type: Nurse Practitioner Type: [...] CORONARY PLAT CHROMIUM BARE METAL STENT SYS [id number], 144 CM 06/26/2014 REMOVAL GALLBLADDER 2013 SUPRACERVICAL [...] cervical adenopathy. Skin: G (more content not included)...[facility]02-09-2025 History of Present illness Narrative* Isaías Ribeiro, SREEDHAR.[facility] - 12/24/2024 1:53 PM EST Subjective HPI [...] CORONARY PLAT CHROMIUM BARE METAL STENT SYS [id number], 144 CM 06/26/2014 REMOVAL GALLBLADDER 2013 SUPRACERVICAL [...] of care. This note was generated using InNetwork software. It may contain errors in wording, punctuation, or spelling. Isaías Ribeiro APRN.JAIRO documented in [facility] encounterGen[facility]11-25-2024 Telephone encounter Note * Telephone Encounter - Zoey Pineda MA - 10/09/2024 3:53 PM EST Pt reviewed message from PCP regarding mammogram results. PCP sent pt message to pt on 10/03/24, was reviewed by pt same day. Zoey Pineda MA [facility]11-25-2024 Miscellaneous Notes* Telephone Encounter - Zoey [...] continue with annual screenings. [facility] in [facility]Gen[facility]11-19-2024 Telephone encounter Note * Telephone Encounter - Ann Zacarias RN - 10/03/2024 9:49 AM EST Called and left a voicemail for the Patient to call back and ask for a nurse to receive the providers message. Ann Zacarias RN [facility]11-19-2024 Telephone encounter Note* Telephone Encounter - Susy Smith APRN.CNP - 10/03/2024 8:15 AM EST Please let patient know her mammogram is negative. Patient should continue with annual screenings. [facility] Work Phone: [phone]) 425-244411-15-2024 History of Present illness Narrative* Elizabeth Elizondo [...] PATIENT PRESENTS WITH AN IMPLANTABLE OR ATTACHED BANK GUARD: No RADIOLOGY DEPARTMENT: Mammography PERIPHERAL IV DATA: Not applicable SIGNED BY: Pavithra Kilgoreo Brook September 29, 2024 1:54 PM documented in this encounterGenesis Hospital11-15-2024 NoteHNO ID: [id number] Author: ELIZABETH ELIZONDO Mammo Tech Service: ? Author Type: Trucksmith Type: Progress Notes Filed: 09/29/2024 13:54 Note [...] PATIENT PRESENTS WITH AN IMPLANTABLE OR ATTACHED BANK GUARD: No RADIOLOGY DEPARTMENT: Mammography PERIPHERAL IV DATA: Not applicable SIGNED BY: Chiqui Kilgore September 29, 2024 1:54 [facility] Telephone encounter Note* Telephone Encounter - Susy Smith APRN.CNP - 09/25/2024 2:22 PM EST Ordered [facility]11-11-2024 Miscellaneous Notes* Telephone Encounter - Susy Smith APRN.CNP - 09/25/2024 2:22 PM EST Ordered * Telephone Encounter - Elizabeth Elizondo Mammo Tech - 09/25/2024 1:40 PM EST Could we have a mammogram screening order STAT! Pt schedule today at 1450. Thanks a million documented in this encounterGen[facility] Hospital11-11-2024 Telephone encounter Note * Telephone Encounter - Elizabeth Elizondo Mammo Tech - 09/25/2024 1:40 PM EST Could we have a mammogram screening order STAT! Pt schedule today at 1450. Thanks a million [facility]09-18-2024 Telephone encounter Note* Telephone Encounter - Hazel Marshall LPN - 08/02/2024 7:57 PM EDT Patient notified.Hazel Marshall LPN [facility]09-18-2024 Miscellaneous Notes* Telephone Encounter - Hazel Marshall LPN - 08/02/2024 7:57 PM EDT Patient notified.Hazel Marshall LPN * Telephone Encounter - Isaías Ribeiro APRN.CNP - 08/02/2024 7:51 PM EDT Please inform patient that chest x-ray is negative. Continue plan of care as discussed during visit. documented in this encounterGenesis Hospital09-18-2024 Telephone encounter Note * Telephone Encounter - Isaías Ribeiro APRN.CNP - 08/02/2024 7:51 PM EDT Please inform patient that chest x-ray is negative. Continue plan of care as discussed during visit. [facility]09-18-2024 History of Present illness Narrative* Keshia Manriquez, RT(R) - 08/02/2024 7:10 PM EDT Radiology [...] PATIENT PRESENTS WITH AN IMPLANTABLE OR ATTACHED BANK GUARD: No RADIOLOGY DEPARTMENT: General X-ray: Exam(s) Completed: Chest X-Ray PERIPHERAL IV DATA: Not applicable SIGNED BY: RT Sera(R) August 02, 2024 7:17 PM documented in this encounterGenesis Hospital09-18-2024 NoteHNO ID: [id number] Author: KESHIA MANRIQUEZ RT(Christal) Service: ? Author Type: Trucksmith Type: Progress Notes Filed: 08/02/2024 19:17 Note [...] PATIENT PRESENTS WITH AN IMPLANTABLE OR ATTACHED BANK GUARD: No RADIOLOGY DEPARTMENT: General X-ray: Exam(s) Completed: Chest X-Ray PERIPHERAL IV DATA: Not applicable SIGNED BY: RT Sera(R) August 02, 2024 7:17 [facility]09-18-2024 NoteHNO ID: [id number] Author: ISAÍAS RIBEIRO APRN.DOCUMENT MANAGEMENT TECHNICIAN Service: ? Author Type: Nurse Practitioner Type: [...] lens implant PAST SURGICAL HISTORY OF 03/31/2021 [employer] Access stent REBEL CORONARY PLAT CHROMIUM BARE METAL STENT SYS [id number], 144 CM 06/26/2014 REMOVAL GALLBLADDER 2013 SUPRACERVICAL [...] 2V FRONTAL/LAT 2. Bronchi (more content not included)...[facility]09-18-2024 History of Present illness Narrative* Isaías Ribeiro APRN.DOCUMENT MANAGEMENT TECHNICIAN - 08/02/2024 6:55 PM EDT Subjective HPI [...] lens implant PAST SURGICAL HISTORY OF 03/31/2021 [employer] stent REBEL CORONARY PLAT CHROMIUM BARE METAL STENT SYS [id number], 144 CM 06/26/2014 REMOVAL GALLBLADDER 2013 SUPRACERVICAL [...] of care. This note was generated using InNetwork software. It may contain errors in wording, punctuation, or spelling. Isaías Ribeiro APRN.JAIRO documented in this encounterGenesis Hospital06-04-2024 NoteHNO ID: [id number] Author: JUANA LINTON APRN.JAIRO Service: ? Author Type: Nurse Practitioner Type: Progress Notes Filed: 04/18/2024 13:22 Note Text: This note was created using Solexel. Subjective Uzma Mcdonald is a 53 year [...] history is provided by the patient. No languages and literature instructor was used. URI She complains of cough. [...] CORONARY PLAT CHROMIUM BARE METAL STENT SYS [id number], 144 CM 06/26/2014 REMOVAL GALLBLADDER 2013 SUPRACERVICAL [...] and behavioral problems. Objective (more content not included)...[facility]06-04-2024 History of Present illness Narrative* Juana Linton APRN.DOCUMENT MANAGEMENT TECHNICIAN - 04/18/2024 12:20 PM EDT This note was created using NoteWriter. Subjective Uzma j Freetage is a 53 year old female. 53 [...] history is provided by the patient. No languages and literature instructor was used. URI She complains of cough. [...] CORONARY PLAT CHROMIUM BARE METAL STENT SYS [id number], 144 CM 06/26/2014 REMOVAL GALLBLADDER 2012 SUPRACERVICAL [...] at time of exam. She declines visiting [address] for xray Will try to come back [...] if symptoms persist or worsen. Juana Linton APRN.DOCUMENT MANAGEMENT TECHNICIAN documented in this encounterGenesis Hospital05-09-2024 NoteHNO ID: [id number] Author: CINTHYA VAUGHAN APRN.DOCUMENT MANAGEMENT TECHNICIAN Service: ? Author Type: Nurse Practitioner Type: [...] lens implant PAST SURGICAL HISTORY OF 03/31/2021 [employer] stent REBEL CORONARY PLAT CHROMIUM BARE METAL STENT SYS [id number], 144 CM 06/26/2014 REMOVAL GALLBLADDER 2013 SUPRACERVICAL [...] No erythema or rash. (more content not included)...[facility]05-09-2024 History of Present illness Narrative* Cinthya Vaughan APRN.[facility] - 03/23/2024 10:57 AM EDT Subjective [...] CORONARY PLAT CHROMIUM BARE METAL STENT SYS [id number], 144 CM 06/26/2014 REMOVAL GALLBLADDER 2013 SUPRACERVICAL [...] Discussed expected course of illness Cinthya Vaughan APRN.DOCUMENT MANAGEMENT TECHNICIAN documented in this encounterGenesis Hospital05-09-2024 Instructions* Patient Instructions* Cinthya Vaughan APRN.DOCUMENT MANAGEMENT TECHNICIAN - 03/23/2024 10:57 AM EDT ASSESSMENT/PLAN: 1. [...] days of proper treatment. documented in this encounterGenesis Hospital11-06-2023 Miscellaneous Notes* Letter - Coordinator, Mammography - 09/20/2023 2:45 PM EST September 21, 2023 PID: [id number] Uzma Mcdonald [address] [place] [address] Dear Ms. Mcdonald, We are pleased to [...] report will be kept on file at [facility] as part of your permanent medical record and are available for your continuing care. Thank you for allowing us to help in meeting your health care needs. Sincerely, Dr. Velasquez Interpreting Radiologist [facility] (Normal over 40) documented in this encounterGenesis Hospital11-03-2023 History of Present illness Narrative* Elizabeth Elizondo Mammo [place] - 09/17/2023 2:30 PM EDT Radiology Service [...] applicable SIGNED BY: Pavithra Kilgoreo Brook September 17, 2023 2:33 PM documented in this encounterGenesis Hospital10-10-2023 Miscellaneous Notes* Telephone Encounter - Aye [...] new patient? Please call pt with reply. [phone] Thank you. documented in this encounterGenesis Hospital04-17-2023 History of Present illness Narrative* David Fink MD - 03/01/2023 2:25 PM EDT Patient presents with: Follow Up: Starting zoloft HPI: Patient presents today for office visit for follow up. PSYCH: Currently tolerating medications well: Yes . Side effects: No. 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 David Fink MD documented in this encounterGenesis Hospital04-04-2023 History of Present illness Narrative* Hilda Morin APRN.DOCUMENT MANAGEMENT TECHNICIAN - 02/16/2023 3:53 PM EDT Chief Complaint Patient presents with: Telemedicine I have communicated my name and active licensure. The patient's identity and physical location wereverified at the time of this visit. Either the patient or their legal containers sales representative has been informed of the [...] agrees to the visit: Yes Patient Location: [facility] Uzma Mcdonald is a 52 year old [...] CORONARY PLAT CHROMIUM BARE METAL STENT SYS [id number], 144 CM 06/26/2014 REMOVAL GALLBLADDER 2013 SUPRACERVICAL [...] as needed for worsening/no improvement. Hilda Morin APRN.DOCUMENT MANAGEMENT TECHNICIAN documented in this encounterGenesis Hospital03-16-2023 Miscellaneous Notes* Telephone Encounter - David Fink MD - 01/28/2023 9:21 AM EDT Disregard. Finally read * Telephone Encounter - David Fink MD - 01/28/2023 8:03 AM EDT Can we check with radiology why her hand xray is still pending several days after it was taken? documented in this encounterGenesis Hospital03-14-2023 History of Present illness Narrative* David [...] CORONARY PLAT CHROMIUM BARE METAL STENT SYS [id number], 144 CM 06/26/2014 REMOVAL GALLBLADDER 2013 SUPRACERVICAL [...] intact. ASSESSMENT/PLAN: 1. 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 David Fink documented in this encounterGenesis Hospital09-15-2022 Miscellaneous Notes* Letter - Mammography Coordinator - 07/30/2022 1:52 PM EDT July 30, 2022 PID: [id number] Uzma Linnesmeconnie [address] [place] [address] Dear Ms. Mcdonald, We are pleased to [...] report will be [facility] at [facility] as part of your permanent medical record and are available for your continuing care. Thank you for allowing us to help in meeting your health care needs. Sincerely, Dr. Santiago Interpreting Radiologist [facility] (Normal over 40) documented in this encounterGenesis Hospital09-15-2022 History of Present illness Narrative* Ashley Ramirez RT(R) - 07/30/2022 12:50 PM EDT Radiology Service [...] 30, 2022 12:36 PM documented in this encounterGenesis Hospital09-13-2022 Miscellaneous Notes* Telephone Encounter - Zoey [...] a1c in six months documented in this encounterGenesis Hospital09-12-2022 History of Present illness Narrative* David Fink MD - 07/27/2022 1:10 PM EDT Patient presents with: Establish Care HPI: Patient presents today for office visit for getting established. CARDIO: she had an IL in 2013 and stent last May in [...] lens implant PAST SURGICAL HISTORY OF 03/31/2021 [employer] stent REBEL CORONARY PLAT CHROMIUM BARE METAL STENT SYS [id number], 144 CM 06/26/2014 REMOVAL GALLBLADDER 2013 SUPRACERVICAL [...] refill. ASSESSMENT/PLAN: 1. 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 Freda Hermosillo documented in this encounterGenesis Hospital08-02-2022 Miscellaneous Notes* Telephone Encounter - Tonie Cortez RN - 06/16/2022 8:29 AM EDT Patient had supracervical hysterectomy with bilateral salpingectomy and right oophorectomy and cystoscopy on 05/28/22. Tonie Cortez RN documented in this encounterGenesis Hospital2022 History of Present illness Narrative* Kyleigh Saucedo MD - 06/08/2022 2:00 PM EDT DATE OF SERVICE: 06/08/2022 PROBLEM: Uzma Mottaconnie presents for postop visit. SURGERY & DATE: 05/28/22 supracervical abd. hyst w/ RSO and left salpingectomy and cysto at [facility] for fibroids, bleeding PATHOLOGY: pending SUBJECTIVE/INTERVAL HISTORY: [...] reviewed. Kyleigh Saucedo MD documented in this encounterGenesis Hospital2022 History of Present illness Narrative* Kyleigh Saucedo MD - 06/08/2022 1:22 PM EDT Patient underwent supracervical hysterectomy with bilateral salpingectomy and right oophorectomy and cystoscopy at [facility] on 05/28/2022. The uterus was enlarged with [...] removal. Kyleigh Saucedo MD documented in this encounterGenesis Hospital07-22-2022 Miscellaneous Notes* Telephone Encounter - Marci [...] have kenyon removed 06/10/2022 documented in this encounterGenesis Hospital07-05-2022 History and physical note * Kyleigh [...] CORONARY PLAT CHROMIUM BARE METAL STENT SYS [id number], 144 CM 06/26/2014 REMOVAL GALLBLADDER 2013 Current Outpatient Medications Medication Sig Dispense Refill [...] allergies Kyleigh Saucedo M.D. documented in this encounterGenesis Hospital06-20-2022 Miscellaneous Notes* Telephone Encounter - Margy Brown MD - 05/04/2022 4:10 PM EDT filed * Telephone Encounter - Aye Castro RN - 05/04/2022 3:36 PM EDT Refill request received via [employer]. Patient is scheduled for surgery with Dr. Saucedo on 05/28/22. Aye Castro RN documented in this encounterGenesis Hospital06-09-2022 Instructions* Patient Instructions* Juana Linton APRN.DOCUMENT MANAGEMENT TECHNICIAN - 04/23/2022 11:35 AM EDT RESPIRATORY INFECTION [...] spread by coughs, sneezes, anddirect contact, especially [id number]. A respiratory tract infection usually clears up [...] 102 F (39 C). documented in this encounterGenesis Hospital06-09-2022 History of Present illness Narrative* Juana Linton APRN.CNP - 04/23/2022 11:05 AM EDT This note was created using [employer]. Subjective Uzma Mcdonald is a 51 year old female. 51 year old female with PMH of Two cardiac stents, HTN, and [place] in 2013 presents with complaints of illness. 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 Denies CP. Denies hemoptysis. Utilized some claritin a couple of times. 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 +tobacco usage. Denies that her usage is affected by her illness, States she is currently trying tocut back/quit. The history is provided by the patient. No languages and literature instructor was used. Cough This is a new [...] lens implant PAST SURGICAL HISTORY OF 03/31/2021 BiontroniVital Access stent REBEL CORONARY PLAT CHROMIUM BARE METAL STENT SYS [id number], 144 CM 06/26/2014 REMOVAL GALLBLADDER 2012 ALLERGIES [...] Content: Thought content normal. Judgment: Judgment normal. Shean Paredes APRN Student ASSESSMENT/PLAN: 1. Cough - [...] symptoms - Declines COVID testing. Juana Linton APRN.DOCUMENT MANAGEMENT TECHNICIAN TEACHING PROVIDER (Physician/PA/ROLL ICER MACHINE) NOTE OF PERSONAL INVOLVEMENT IN CARE: I have personally seen and examined the patient and performed the medical decision-making components. I have reviewed the Advanced Practice Registered Nurse (ROLL ICER MACHINE) Student's documentation and verified the findings in the note as written. Any additions or changes are noted in bold/italics. Signature: Juana Linton Date: 04/23/2022 Time: 11:55 AM documented in this encounterGenesis Hospital06-09-2022 History of Present illness Narrative* Yolette [...] 23, 2022 11:00 AM documented in this encounterGenesis Hospital05-12-2022 Miscellaneous Notes* Telephone Encounter - Aye Castro RN - 03/26/2022 12:42 PM EDT Patient called back and notified of below. Patient would like to proceed with surgery on 05/28 at [facility]. Aye Castro RN * Telephone Encounter - Marci Olsen LPN - 03/26/2022 12:31 PM EDT Left message to call office. Available date in May for surgery is 05/28/2022 at [facility]. Will schedule pre-op once patient has new insurance in April documented in this encounterGenesis Hospital05-05-2022 History of Present illness Narrative* Kyleigh [...] L4 SAB0 IAB0 Ectopic0 Multiple0 Live Births0 Remote Broadcast Technician History LMP: 05/20/2021, Having periods Age at Menarche: Age at First : Age at Menopause: Remote Broadcast Technician History Comments: Sexual Activity: Not Currently; Male Contraception: Tubal Ligation No past medical history on file. PAST SURGICAL HISTORY Procedure Laterality Date DILATION & CURETTAGE 1996 LIGATE FALLOPIAN TUBE 1996 PAST SURGICAL HISTORY OF Right 04/19/2020 intraocular lens implant PAST SURGICAL HISTORY OF 03/31/2021 Biontronik stent REBEL CORONARY PLAT CHROMIUM BARE METAL STENT SYS [id number], 144 CM 06/26/2014 REMOVAL GALLBLADDER 2013 FAMILY [...] Making Kyleigh Saucedo MD documented in this encounterGenesis Hospital04-15-2022 Miscellaneous Notes* Telephone Encounter - Margy Brown MD - 02/27/2022 12:16 PM EDT Will file but please schedule her for follow up visit with RR thanks * Telephone Encounter - Kristen Duran LPN - 02/27/2022 11:03 AM EDT See pt's mychart refill request and advise. Kristen Duran LPN documented in this encounterGenesis Hospital04-15-2022 Miscellaneous Notes* Telephone Encounter - Kristen [...] Multiple refills since then documented in this encounterGenesis Hospital11-08-2021 Miscellaneous Notes* Telephone Encounter - Tonie Cortez RN - 09/22/2021 2:54 PM EST Patient scheduled for tomorrow with . Tonie Cortez RN * Telephone Encounter - [...] this large she will likely need MRI ([facility], fibroid protocol), EMB and we will need to coordinate with her exotic dancer about care. Can see DM tomorrow, use both 820 and 840 slots or can use KJ afternoon slots 310-320 and 340 slots to give enough time. Thanks. Kyleigh Saucedo MD documented in this encounterGenesis Hospital05-17-2021 Evaluation note* Diagnosis Onset Date Resolution Status High cholesterol acute Essential (primary) hypertension chronic History of coronary artery stent placement March 31, 021 resolved [facility] Work Phone: Consult note Author Ck Cotto [facility] Note Date/Time April 02, 2025 1:54p m [facility] Medical Records Department [address] [place] [address] Anesthesia Postop Eval II 04/02/25 1305 MR#: [id number] Acct: [id number] Name: UZMA MCDONALD Rep #:[id number] : 1970 54 From: Ck Cotto MD PCP: Dr. David Fink MD Status:REG S DC Y Race: C Location: [address] Anesthesia Postop Eval I Sum Postop Eval Completion status Anesthesia document: Postop Eval 1 completed: Yes Anesthesia Postop Eval I Summary Anesthesia Postop Eval I Summary: Anesthesia Postop Eval I: Assessment Summary Airway patent Yes 04/02/25 12:06 COOK FISH EGGS.HBARR Spontaneous unlabored Yes 04/02/25 12:06 COOK FISH EGGS.HBARR respirations Mental status Awake 04/02/25 12:06 COOK FISH EGGS.HBARR nausea No 04/02/25 12:06 COOK FISH EGGS.HBARR Vomiting No 04/02/25 12:06 COOK FISH EGGS.HBARR Anesthesia Postop Eval I: Fluid Summary Crystalloid volume administer 500 04/02/25 12:06 COOK FISH EGGS.HBARR (ml) Colloids volume administered ( ml) Blood Product volume administered (ml) Total IV fluid infused 500 04/02/25 12:06 COOK FISH EGGS.HBARR Anesthesia Postop Eval I: Summary Notes Anesthesia Complication No 04/02/25 12:06 COOK FISH EGGS.HBARR Anesthesia Complication Comment: Post-operative progress note Anesthesia: Postop Eval II Evaluation Mental status: Awake Pain Level: 0 nausea: No Vomiting: No 04/02/25 1305 <Electronically signed by Ck Cotto MD > Date _ Ck Cotto [facility] Signature: Date CC: ~ Signed [facility] Work Phone: Discharge summary Author [facility] Note Date/Time April 02, 2025 12:19 pm [facility] Medical Records Department [address] [place] [address] Instructions for Home/Discharge Instructions 04/02/25 1218 MR#: [id number] Acct: [id number] Name: UZMA MCDONALD Rep #:[id number] : 1970 54 From: Theo villegas [...] to schedule 2 week follow up appointment. [phone] Test Results: Test results from this visit will be discussed in further detail at your follow- up appointment, if applicable. Discharge Plan Admission Attending Provider: Theo Richard Primary Care Provider: David Fink Instructions Print Language: Angolan Discharge Orders/Prescriptions Prescriptions: No Action sertraline [Zoloft] [...] Self Care 04/02/25 1219<Electronically signed by Theo Rihcard MD>Theo Richard MD CC: Dr. David Fink MD ~ Signed [facility] Work Phone: Evaluation note* Diagnosis Menorrhagia with irregular cycle- Primary Excessive or frequent menstruation Uterine leiomyoma, unspecified location Iron deficiency anemia due to chronic blood loss Iron deficiency anemia secondary to blood loss (chronic) documented in this encounter [facility] note* Diagnosis Cough- Primary URI, acute Acute upper respiratory infections of unspecified site documented in this encounter [facility] note* Diagnosis Menorrhagia with irregular cycle- Primary Excessive or frequent menstruation Uterine leiomyoma, unspecified location Iron deficiency anemia due to chronic blood loss Iron deficiency anemia secondary to blood loss (chronic) documented in this encounter [facility] noteNo assessment information availableWElyria Memorial Hospital Work Phone: Evaluation note* Diagnosis Onset Date Resolution Status Menorrhagia acute Uterine fibroid acute Anemia due to chronic blood loss [facility] Work Phone: Evaluation note* Diagnosis Uterine leiomyoma, unspecified location- Primary Iron deficiency anemia due to chronic blood loss Iron deficiency anemia secondary to blood loss (chronic) Menorrhagia with regular cycle Excessive or frequent menstruation [facility]* Diagnosis Postop check- Primary Follow-up examination, following unspecified surgery [facility]* Diagnosis 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, unspecified vessel or lesion type (HCC)- Primary Blood in stool Hyperglycemia Other abnormal glucose Tobacco use Tobacco use disorder Hyperlipidemia, mixed Mixed hyperlipidemia Neck mass Swelling, mass, or lump in head and neck documented [facility] encounter [facility]* Diagnosis Hyperglycemia- Primary Other abnormal glucose [facility]* Diagnosis Obesity, Class I, BMI 30-34.9 Obesity, unspecified documented [facility] encounter [facility]* Diagnosis 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, unspecified vessel [...] disorder with anxiety [facility]* Diagnosis COVID-19- Primary [facility]* Diagnosis GERD without esophagitis- Primary Esophageal reflux Adjustment disorder with other symptom [facility]* Diagnosis Encounter for screening mammogram for malignant neoplasm of breast Other screening mammogram [facility]* Diagnosis Acute cough- Primary Viral URI Acute upper respiratory infections of unspecified site Viral bronchitis Acute bronchitis Eye redness Redness or discharge of eye [facility]* Diagnosis Acute cough- Primary Rhinosinusitis Unspecified sinusitis (chronic) documented in this encounter [facility] note* Diagnosis Acute cough- Primary Bronchitis Bronchitis, not specified as acute or chronic Acute cough [facility]* Diagnosis Acute cough [facility]* Diagnosis Trigger little finger of right hand Trigger finger (acquired) Right elbow pain Pain in joint, upper arm documented in this encounter [facility] note* Diagnosis Cough documented in this encounter [facility] note* Diagnosis Encounter for screening mammogram for breast cancer- Primary documented in this encounter [facility] note* Diagnosis Encounter for screening mammogram for malignant neoplasm of breast- Primary Other screening mammogram [facility]* Diagnosis Encounter for screening mammogram for breast cancer documented in this encounter [facility] note* Diagnosis Burning with urination- Primary Dysuria documented in this encounter [facility] note* Diagnosis Pelvic mass- Primary Abdominal or pelvic swelling, mass or lump, unspecified site documented in this encounter [facility] note* Diagnosis Pelvic mass in female- Primary documented in this encounter [facility] note* Diagnosis Pelvic mass- Primary Abdominal or pelvic swelling, mass or lump, unspecified site Pelvic mass Abdominal or pelvic swelling, mass or lump, unspecified site Intra-abdominal and pelvic swelling, mass and lump, unspecified site documented in this encounter [facility] note* Diagnosis Pelvic mass in female- Primary Postoperative follow-up Follow-up examination, following unspecified surgery Yeast infection of the skin Candidiasis of skin and nails documented in this encounter [facility] note* 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 You are leaving AGAINST MEDICAL ADVICE. Risks are that you could get significantly more ill and become septic, develop damage to your organs, permanent disability, or . Please follow-up closely with your oncologist. Return anytime for admission or worsening symptoms.[facility] Work Phone: Progress note Author Imani [facility] Note Date/Time April 19, 2025 9:41a m [facility] [place] [address] OFFICE VISIT Date of Service: 04/19/25905 MR#: [id number] Acct: [id number] Name: UZMA MCDONALD Rep #: [id number] : 1970 From: Imani fair MD Age/Sex: 54/F [place] [facility] Status: Signed HPI Subjective Date of Service 04/19/25 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 The patient was seen in [facility] emergency room January 08, 2025 with [...] activity and tumor cell necrosis. IHC at [facility] positive for SMA, negative for desmin, STAT6, pancytokeratin, S100 and CD34. [facility] negative Desmin, negative Caldesmon, ER [...] omentectomy. * Docetaxel gemcitabine April 19, 2025 [facility] Medical History Encounter for education Cancer Back [...] no focal motor deficits Coordination / Balance: lxsrta-lk-zump test normal Speech: speech normal Gait (Neuro): [...] showed no malignant cells. Was seen at [facility] sarcoma clinic by Dr. Cunningham in [...] discussed with patient . Imani Persaud MD Silk [facility]anger, [facility] Divisions of Medical Oncology & Hematology Department of Internal Medicine [place] [phone] This note was generated using a voice recognition system software. Although itwas reviewed by the author prior to finalization, it may still contain incorrectwords, spelling, and punctuation that were not noted when reviewing prior to saving. If a clinically significant typo or inaccurately typed phrase is noted, please notify the author. 04/19/25 9379 <Electronically signed by Imani jones MD> Date _ Imani Persaud MD Cosigner Signature: Date (if applicable) CC: ~ [place] [employer] Work Phone: Reason for referral (narrative)* Diagnostic Procedure Only (Routine) - Pending Review Specialty Diagnoses / Procedures Referred By Lisa melchor Referred To Contact US IMAGING Diagnoses Neck mass Procedures US HEAD/NECK SOFT TISSUE OTHER US SOFT TISSUE HEAD & NECK REAL TIME IMGE David Garcia MD [address] [place] [address] [facility] Referral ID Status Reason Start Date Expiration Date Visits Requested Visits Authorized [id number] Pending Review Auto-Generat ed Referral 07/27/2022 08/26/2023 1 1 * Consult, Test, Treat (Routine) - Authorized Specialty Diagnoses / Procedures Referred By Contac t Referred To Contact General Surgery Diagnoses Blood in stool Procedures CONSULT TO GENERAL SURGERY OFFICE/OUTPATIENT [facility] MDM 60-74 MINUTES David Fink MD [address] [place] [address] Referral ID Status Reason Start Date Expiration Date Visits Requested Visits Authorized [id number] Authorized PCP Requested Referral 07/27/2022 07/27/2023 1 1 [facility] for referral (narrative)* Diagnostic Procedure Only (Routine) - Closed Specialty Diagnoses / Procedures Referred By Lisa t Referred To Contact BR IMAGING Diagnoses Obesity, Class I, BMI 30-34.9 Procedures BRITTANY SCREENING SCREENING MAMMOGRAPHY BI 2-VIEW BREAST INC CAD Sunday Cr PA-C [address] [place] [address] Br Imaging [address] [place] [address] Referral ID Status Reason Start Date Expiration Date V isits Requested Visits Authorized [id number] Closed Auto-Generate d Referral 07/23/2022 08/22/2023 1 1 [facility] for referral (narrative)* Outpatient Procedure (Routine) - Authorized Specialty Diagnoses / Procedures Referred By Contac t Referred To Contact [facility] Diagnoses Numbness Procedures EMG(NEURO/NI) NERVE CONDUCTION STUDIES 9-10 STUDIES David Fink MD [address] [place] [address] Neurological [place] [address] [place] [address] Referral ID Status Reason Start Date Expiration Date Visits Requested Visits Authorized [id number] Authorized Auto-Generat ed Referral 01/26/2023 01/27/2024 1 1 * Diagnostic Procedure Only (Routine) - Closed Specialty Diagnoses / Procedures Referred By Contac t Referred To Contact XR IMAGING Diagnoses Right elbow pain Procedures XR ELBOW GENERAL 2V AP/LAT RIGHT RADEX ELBOW 2 VIEWS David Fink MD [address] [place] [address] Xr Imaging Referral ID Status Reason Start Date Expiration Date V isits Requested Visits Authorized [id number] Closed Auto-Generate d Referral 01/26/2023 02/25/2024 1 1 * Diagnostic Procedure Only (Routine) - Closed Specialty Diagnoses / Procedures Referred By Contac t Referred To Contact XR IMAGING Diagnoses Trigger little finger of right hand Procedures XR HAND GENERAL 3V PA/LAT/OBL RIGHT RADEX HAND MINIMUM 3 VIEWS David Fink MD [address] [place] [address] Xr Imaging Referral ID Status Reason Start Date Expiration Date V isits Requested Visits Authorized [id number] Closed Auto-Generate d Referral 01/26/2023 02/25/2024 1 1 [facility] for referral (narrative)* Diagnostic Procedure Only (Routine) - Closed Specialty Diagnoses / Procedures Referred By Contac t Referred To Contact XR IMAGING Diagnoses Right elbow pain Procedures XR ELBOW GENERAL 2V AP/LAT RIGHT RADEX ELBOW 2 VIEWS David Fink MD [address] [place] [address] [place] [address] Referral ID Status Reason Start Date Expiration Date V isits Requested Visits Authorized [id number] Closed Auto-Generate d Referral 01/26/2023 02/25/2024 1 1 * Diagnostic Procedure Only (Routine) - Closed Specialty Diagnoses / Procedures Referred By Contac t Referred To Contact XR IMAGING Diagnoses Trigger little finger of right hand Procedures XR HAND GENERAL 3V PA/LAT/OBL RIGHT RADEX HAND MINIMUM 3 VIEWS David Fink MD [address] [place] [address] [facility] [address] Referral ID Status Reason Start Date Expiration Date V isits Requested Visits Authorized [id number] Closed Auto-Generate d Referral 01/26/2023 02/25/2024 1 1 [facility] for referral (narrative)* Diagnostic Procedure Only (Routine) - Authorized Specialty Diagnoses / Procedures Referred By Contac t Referred To Contact BR IMAGING Diagnoses Encounter for screening mammogram for breast cancer Procedures BRITTANY SCREENING W ALFONSO SCREENING DIGITAL BREAST TOMOSYNTHESIS BI SCREENING MAMMOGRAPHY BI 2-VIEW BREAST INC CAD Susy Smith APRN.DOCUMENT MANAGEMENT TECHNICIAN [address] [place] [address] [facility] Imaging [address] [place] [address] Referral ID Status Reason Start Date Expiration Date Visits Requested Visits Authorized [id number] Authorized Auto-Generat ed Referral 4 10/25/2025 1 1 [facility] for referral (narrative)* Diagnostic Procedure Only (Routine) - New Request Specialty Diagnoses / Procedures Referred By Lisa t Referred To Contact BR IMAGING Diagnoses Encounter for screening mammogram for malignant neoplasm of breast Procedures BRITTANY SCREENING W ALFONSO SCREENING DIGITAL BREAST TOMOSYNTHESIS BI SCREENING MAMMOGRAPHY BI 2-VIEW BREAST INC Susy Shaver APRN.DOCUMENT MANAGEMENT TECHNICIAN [address] [place], [place] [id number] [facility] [address] [place] [address] Referral ID Status Reason Start Date Expiration Date Visits Requested Visits Authorized [id number] New Request Auto-Generat ed Referral 4 10/25/2025 1 1 [facility] for referral (narrative)No reason for referral information availableWElyria Memorial Hospital Work Phone: Reason for visit Narrative* Diagnostic Procedure Only (Routine) - Closed Specialty Diagnoses / Procedures Referred By Contac t Referred To Contact BR IMAGING Diagnoses Obesity, Class I, BMI 30-34.9 Procedures BRITTANY SCREENING SCREENING MAMMOGRAPHY BI 2-VIEW BREAST INC CAD Sunday Cr PA-C [address] [place] [phone] [facility] [address] [place] [phone] Referral ID Status Reason Start Date Expiration Date V isits Requested Visits Authorized [id number] Closed Auto-Generate d Referral 07/23/2022 08/22/2023 1 1 [facility] for visit Narrative* Diagnostic Procedure Only (Routine) - Closed Specialty Diagnoses / Procedures Referred By Contac t Referred To Contact BR IMAGING Diagnoses Encounter for screening mammogram for malignant neoplasm of breast Procedures BRITTANY SCREENING SCREENING MAMMOGRAPHY BI 2-VIEW BREAST INC CAD David Fink MD [address] [place] [phone] [facility] [address] [place] [phone] Referral ID Status Reason Start Date Expiration Date V isits Requested Visits Authorized [id number] Closed Auto-Generate d Referral 08/31/2023 09/29/2024 1 1 [facility] for visit Narrative* Diagnostic Procedure Only (Routine) - Closed Specialty Diagnoses / Procedures Referred By Contac t Referred To Contact XR IMAGING Diagnoses Right elbow pain Procedures XR ELBOW GENERAL 2V AP/LAT RIGHT RADEX ELBOW 2 VIEWS David Fink MD [address] [place] [phone] [place] [address] Referral ID Status Reason Start Date Expiration Date V isits Requested Visits Authorized [id number] Closed Auto-Generate d Referral 01/26/2023 02/25/2024 1 1 [facility] for visit Narrative* Diagnostic Procedure Only (Routine) - Closed Specialty Diagnoses / Procedures Referred By Contac t Referred To Contact BR IMAGING Diagnoses Encounter for screening mammogram for breast cancer Procedures BRITTANY SCREENING W ALFONSO SCREENING DIGITAL BREAST TOMOSYNTHESIS BI SCREENING MAMMOGRAPHY BI 2-VIEW BREAST INC CAD Susy Smith, ROLL ICER MACHINE.DOCUMENT MANAGEMENT TECHNICIAN [address] [place] [address] [facility] Imaging [address] [place] [address] Referral ID Status Reason Start Date Expiration Date V isits Requested Visits Authorized [id number] Closed Auto-Generate d Referral 09/25/2024 10/25/2025 1 1 [facility] for visit Narrative* Auth/Cert (Routine) Specialty Diagnoses / Procedures Referred By Lisa melchor Referred To Contact Diagnoses Intra-abdominal and pelvic swelling, mass and lump, unspecified site Procedures CA EXPLORATORY LAPAROTOMY CELIOTOMY W/WO BIOPSY SPX CA LAPAROSCOPY W/RMVL ADNEXAL STRUCTURES CA LMTD LMPHADEC STAGING SPX PEL&PARA-AORTIC CA LAPAROSCOPY SURG W/BX SINGLE/MULTIPLE LAPAROTOMY, EXPLORATORY LEFT LAPAROSCOPIC, SALPINGO-OOPHORECTOMY POSSIBLE LYMPHADENECTOMY, PARA-AORTIC OR PELVIC, LIMITED, FOR STAGING LAPAROSCOPY, WITH BIOPSY Darvin Grady MD [address] [place] [address] Phone: tel: fax: Referral ID Status Reason Start Date Expiration Date Visits Re quested Visits Authorized [id number] 01/17/2025 1 1 [facility] Chief Complaint and Reason for Visit Chief [...] Primary leiomyosarcoma of pelvis May 032024 10:20am Chief Complaint Admit Date LOWER ABDOMINAL PAIN [...] TOX CHECK May 03, 2025 10:2 0am FEVER May 04, 2025 5:58 pm Reason for Visit Admit Date Pelvic mass [...] Primary leiomyosarcoma of pelvis April 262024 8:12am Anemia May 03, 2025 10:2 0am Dark urine May 03, 2025 10:2 0am Primary leiomyosarcoma of pelvis May 032024 10:20am Severe neutropenia May 03, 2025 10:2 0am Chief Complaint Admit Date LEFT PELVIC MASS January 10, 2025 12:54pm [...] am FEVER April 28, 2025 7:28 pm [facility]S TOX CHECK May 03, 2025 10:2 0am FEVER May 04, 2025 5:58 pm 2 WKS - LABS - GEMZAR May 10, 2025 9: 09am [facility] - LABS - GEMCITABINE April 9:15am Reason for Visit Admit Date Pelvic mass [...] Primary leiomyosarcoma of pelvis April 262024 8:12am Anemia May 03, 2025 10:2 0am Dark urine May 03, 2025 10:2 0am Primary leiomyosarcoma of pelvis May 032024 10:20am Severe neutropenia May 03, 2025 10:2 0am Anemia May 10, 2025 9:09 am Encounter for chemotherapy management Ju ne 2024 9:09am Primary leiomyosarcoma of pelvis May 102024 9:09am Chief Complaint Admit Date 3 WK POST OP [facility] GRADY(PATH/NOTE [...] am FEVER April 28, 2025 7:28 pm [facility] LABS TOX CHECK May 03, 2025 10:2 0am FEVER May 04, 2025 5:58 pm 2 WKS - LABS - GEMZAR May 10, 2025 9: 09am 1 WK - LABS - GEMZAR/TAXOTERE May 17, 2025 8:34am NEW START - LABS - GEMCITABINE May 17, 2025 8:45am Reason for Visit Admit Date Primary leiomyosarcoma of pelvis February 132024 10:59am [...] Primary leiomyosarcoma of pelvis April 262024 8:12am Anemia May 03, 2025 10:2 0am Dark urine May 03, 2025 10:2 0am Primary leiomyosarcoma of pelvis May 032024 10:20am Severe neutropenia May 03, 2025 10:2 0am Anemia May 10, 2025 9:09 am Encounter for chemotherapy management Ju ne 2024 9:09am Primary leiomyosarcoma of pelvis May 102024 9:09am Chief Complaint Admit Date 3 [facility] POST OP [facility] GRAD[facility](PATH/NOTE [...] am FEVER April 28, 2025 7:28 pm 1[facility] LABS TOX CHECK May 03, 2025 10:2 0am FEVER May 04, 2025 5:58 pm 2 WKS - LABS - GEMZAR May 10, 2025 9: 09am 1 WK - LABS - GEMZAR/TAXOTERE May 17, 2025 8:34am 2 WKS - LABS - GEMZAR May 31, 2025 9: 03am NEW START - LABS - GEMCITABINE May 9:15am Reason for Visit Admit Date Primary leiomyosarcoma of pelvis February 132024 10:59am [...] Primary leiomyosarcoma of pelvis April 262024 8:12am Anemia May 03, 2025 10:2 0am Dark urine May 03, 2025 10:2 0am Primary leiomyosarcoma of pelvis May 032024 10:20am Severe neutropenia May 03, 2025 10:2 0am Anemia May 10, 2025 9:09 am Encounter for chemotherapy management Ju ne 2024 9:09am Primary leiomyosarcoma of pelvis May 102024 9:09am Primary leiomyosarcoma of pelvis May 8:34am Primary leiomyosarcoma of pelvis May 312024 9:03am Chief Complaint Admit Date 3 W[facility] POST OP [facility] GRAD[facility](PATH/NOTE [...] am FEVER April 28, 2025 7:28 pm 1[facility] LABS TOX CHECK May 03, 2025 10:2 0am FEVER May 04, 2025 5:58 pm 2 WKS - LABS - GEMZAR May 10, 2025 9: 09am 1 WK - LABS - GEMZAR/TAXOTERE May 17, 2025 8:34am 2 WKS - LABS - GEMZAR May 31, 2025 9: 03am NEW START - LABS - GEMCITABINE May 8:45am 1 WK - LABS - TAXOTERE/GEMZAR June 07, 2025 8:48am Reason for Visit Admit Date Primary leiomyosarcoma of pelvis February 132024 10:59am [...] Primary leiomyosarcoma of pelvis April 262024 8:12am Anemia May 03, 2025 10:2 0am Dark urine May 03, 2025 10:2 0am Primary leiomyosarcoma of pelvis May 032024 10:20am Severe neutropenia May 03, 2025 10:2 0am Anemia May 10, 2025 9:09 am Encounter for chemotherapy management Ju ne 2024 9:09am Primary leiomyosarcoma of pelvis May 102024 9:09am Primary leiomyosarcoma of pelvis May 8:34am Encounter for chemotherapy management Ju ly 2024 9:03am Hypokalemia May 31, 2025 9:03 am Palmar plantar erythrodysaesthesia due t o cytotoxic therapy May 31, 2025 9:03am Primary leiomyosarcoma of pelvis May 312024 9:03am Encounter for chemotherapy management Ju ly 2024 8:48am Palmar plantar erythrodysaesthesia due t o cytotoxic therapy June 07, 2025 8:48am Primary leiomyosarcoma of pelvis June 072024 8:48am Elevated transaminase measurement May 162024 8:48am Chief Complaint Admit Date 3 WK POST OP [facility] GRAD[facility](PATH/NOTE [...] am FEVER April 28, 2025 7:28 pm 1[facility] LABS TOX CHECK May 03, 2025 10:2 0am FEVER May 04, 2025 5:58 pm 2 WKS - LABS - GEMZAR May 10, 2025 9: 09am 1 WK - LABS - GEMZAR/TAXOTERE May 17, 2025 8:34am 2 WKS - LABS - GEMZAR May 31, 2025 9: 03am NEW START - LABS - GEMCITABINE May 8:45am 1 WK - LABS - TAXOTERE/GEMZAR June 07, 2025 8:48am transaminitis June 08, 2025 10:4 7am Reason for Visit Admit Date Primary leiomyosarcoma of pelvis February 132024 10:59am [...] Primary leiomyosarcoma of pelvis April 262024 8:12am Anemia May 03, 2025 10:2 0am Dark urine May 03, 2025 10:2 0am Primary leiomyosarcoma of pelvis May 032024 10:20am Severe neutropenia May 03, 2025 10:2 0am Anemia May 10, 2025 9:09 am Encounter for chemotherapy management Ju wv 2024 9:09am Primary leiomyosarcoma of pelvis May 102024 9:09am Primary leiomyosarcoma of pelvis May 8:34am Encounter for chemotherapy management Ju ly 2024 9:03am Hypokalemia May 31, 2025 9:03 am Palmar plantar erythrodysaesthesia due t o cytotoxic therapy May 31, 2025 9:03am Primary leiomyosarcoma of pelvis May 312024 9:03am Constipation June 07, 2025 8:48 am Encounter for chemotherapy management Ju ly 2024 8:48am Palmar plantar erythrodysaesthesia due t o cytotoxic therapy June 07, 2025 8:48am Primary leiomyosarcoma of pelvis June 072024 8:48am Elevated transaminase measurement May 162024 8:48am Chief Complaint Admit Date 3 W[facility] POST OP [facility] GRAD[facility](PATH/NOTE [...] am FEVER April 28, 2025 7:28 pm 1[facility] LABS TOX CHECK May 03, 2025 10:2 0am FEVER May 04, 2025 5:58 pm 2 WKS - LABS - GEMZAR May 10, 2025 9: 09am 1 WK - LABS - GEMZAR/TAXOTERE May 17, 2025 8:34am 2 WKS - LABS - GEMZAR May 31, 2025 9: 03am 1 WK - LABS - TAXOTERE/GEMZAR June 07, 2025 8:48am transaminitis June 08, 2025 10:4 7am 1 WK - LABS - GEM/TAXOTERE June 14 8:58am NEW START - LABS - GEMCITABINE May 9:00am Reason for Visit Admit Date Primary leiomyosarcoma of pelvis February 132024 10:59am [...] Primary leiomyosarcoma of pelvis April 262024 8:12am Anemia May 03, 2025 10:2 0am Dark urine May 03, 2025 10:2 0am Primary leiomyosarcoma of pelvis May 032024 10:20am Severe neutropenia May 03, 2025 10:2 0am Anemia May 10, 2025 9:09 am Encounter for chemotherapy management Ju ne 2024 9:09am Primary leiomyosarcoma of pelvis May 102024 9:09am Primary leiomyosarcoma of pelvis May 8:34am Encounter for chemotherapy management Ju ly 2024 9:03am Hypokalemia May 31, 2025 9:03 am Palmar plantar erythrodysaesthesia due t o cytotoxic therapy May 31, 2025 9:03am Primary leiomyosarcoma of pelvis May 312024 9:03am Constipation June 07, 2025 8:48 am Encounter for chemotherapy management Ju ly 2024 8:48am Palmar plantar erythrodysaesthesia due t o cytotoxic therapy June 07, 2025 8:48am Primary leiomyosarcoma of pelvis June 072024 8:48am Elevated transaminase measurement May 162024 8:48am Encounter for chemotherapy management Ju ly 2024 8:58am Primary leiomyosarcoma of pelvis June 142024 8:58am Chief Complaint Admit Date PORT PLACEMENT March 26, 2025 1:19p m [...] am FEVER April 28, 2025 7:28 pm 1[facility] LABS TOX CHECK May 03, 2025 10:2 0am FEVER May 04, 2025 5:58 pm 2 WKS - LABS - GEMZAR May 10, 2025 9: 09am 1 WK - LABS - GEMZAR/TAXOTERE May 17, 2025 8:34am 2 WKS - LABS - GEMZAR May 31, 2025 9: 03am 1 WK - LABS - TAXOTERE/GEMZAR June 07, 2025 8:48am transaminitis June 08, 2025 10:4 7am 1 WK - LABS - GEM/TAXOTERE June 14 8:58am 1 WK - LABS - GEM/TAXOTERE June 28, 2025 8:43am NEW START - LABS - GEMCITABINE June 282024 8:45am Reason for Visit Admit Date Encounter for insertion of venous access port [...] Primary leiomyosarcoma of pelvis April 262024 8:12am Anemia May 03, 2025 10:2 0am Dark urine May 03, 2025 10:2 0am Primary leiomyosarcoma of pelvis May 032024 10:20am Severe neutropenia May 03, 2025 10:2 0am Anemia May 10, 2025 9:09 am Encounter for chemotherapy management Ju ne 2024 9:09am Primary leiomyosarcoma of pelvis May 102024 9:09am Primary leiomyosarcoma of pelvis May 8:34am Encounter for chemotherapy management Ju ly 2024 9:03am Hypokalemia May 31, 2025 9:03 am Palmar plantar erythrodysaesthesia due t o cytotoxic therapy May 31, 2025 9:03am Primary leiomyosarcoma of pelvis May 312024 9:03am Constipation June 07, 2025 8:48 am Encounter for chemotherapy management Ju ly 2024 8:48am Palmar plantar erythrodysaesthesia due t o cytotoxic therapy June 07, 2025 8:48am Primary leiomyosarcoma of pelvis June 072024 8:48am Elevated transaminase measurement May 162024 8:48am Encounter for chemotherapy management Ju ly 2024 8:58am Primary leiomyosarcoma of pelvis June 142024 8:58am Primary leiomyosarcoma of pelvis June 28, 2025 8:43am Chief Complaint Admit Date PORT PLACEMENT March 26, 2025 1:19p m [...] am FEVER April 28, 2025 7:28 pm 1[facility] LABS TOX CHECK May 03, 2025 10:2 0am FEVER May 04, 2025 5:58 pm 2 WKS - LABS - GEMZAR May 10, 2025 9: 09am 1 WK - LABS - GEMZAR/TAXOTERE May 17, 2025 8:34am 2 WKS - LABS - GEMZAR May 31, 2025 9: 03am 1 WK - LABS - TAXOTERE/GEMZAR June 07, 2025 8:48am transaminitis June 08, 2025 10:4 7am 1 WK - LABS - GEM/TAXOTERE June 14 8:58am 1 WK - LABS - GEM/TAXOTERE June 28, 2025 8:43am 2 WKS -LABS - TAXOTERE/GEMZAR June 8:44am NEW [facility] - LABS - GEMCITABINE July 122024 8:45am Reason for Visit Admit Date Encounter for insertion of venous access port [...] Primary leiomyosarcoma of pelvis April 262024 8:12am Anemia May 03, 2025 10:2 0am Dark urine May 03, 2025 10:2 0am Primary leiomyosarcoma of pelvis May 032024 10:20am Severe neutropenia May 03, 2025 10:2 0am Anemia May 10, 2025 9:09 am Encounter for chemotherapy management Ju ne 2024 9:09am Primary leiomyosarcoma of pelvis May 102024 9:09am Primary leiomyosarcoma of pelvis May 8:34am Encounter for chemotherapy management Ju ly 2024 9:03am Hypokalemia May 31, 2025 9:03 am Palmar plantar erythrodysaesthesia due t o cytotoxic therapy May 31, 2025 9:03am Primary leiomyosarcoma of pelvis May 312024 9:03am Constipation June 07, 2025 8:48 am Encounter for chemotherapy management Ju ly 2024 8:48am Palmar plantar erythrodysaesthesia due t o cytotoxic therapy June 07, 2025 8:48am Primary leiomyosarcoma of pelvis June 072024 8:48am Elevated transaminase measurement May 162024 8:48am Encounter for chemotherapy management Ju ly 2024 8:58am Primary leiomyosarcoma of pelvis June 142024 8:58am Primary leiomyosarcoma of pelvis June 28, 2025 8:43am Primary leiomyosarcoma of pelvis July 12, 2025 8:44am Advance Directives No Advanced Directives Records Found Advance Directive Response Recorded Date/ Time Living Will No May 21, 2022 1 1:02am Power of Pipe Straightener No May 21, 2022 11:02am Advance Directive Response Recorded Date/ Time Living Will No May 28, 2022 2:48pm Power of Pipe Straightener No May 28 2:48pm Advance Directive Response Recorded Date/ Time Living Will No May 28, 2022 1:48pm Power of Pipe Straightener No May 28 1:48pm Date Activated Date Inactivated Comments 01/26/2025 6:33 AM 01/27/2025 2:16 PM Advance Directive Response Recorded Date/ Time Living Will No January 08 025 8:27pm Power of Pipe Straightener No January 08, 2025 8:27pm Date Activated Date Inactivated Comments 01/26/2025 6:33 AM 01/27/2025 2:16 PM Advance Directive Response Recorded Date/ Time Living Will No January 08, 8:27pm Do you have a Healthcare Power of Pipe Straightener? No January 08, 2025 8:27pm Advance Directive Response Recorded Date/ Time Living Will No January 08 8:27pm Do you have a Healthcare Power of Pipe Straightener? No January 08, 2025 8:27pm Do you have a Healthcare Power of Pipe Straightener? No March 28, 2025 2:20pm Advance Directive Response Recorded Date/ Time Advance Directives on File No April 19, 2025 10:08am Living Will No April 19, 2025 1 0:08am Do you have a Healthcare Power of Pipe Straightener? No April 19, 2025 10:08am Advance Directives No April 19 10:08am Living Will No January 08 8:27pm Do you have a Healthcare Power of Pipe Straightener? No January 08, 2025 8:27pm Do you have a Healthcare Power of Pipe Straightener? No March 28, 2025 2:20pm Advance Directive Response Recorded Date/ Time Advance Directives on File No April 26, 2025 10:00am Living Will No April 26, 2025 10:00am Do you have a Healthcare Power of Pipe Straightener? No April 26, 2025 10:00am Advance Directives No April 26 10:00am Do you have a Healthcare Power of Pipe Straightener? No April 28, 2025 7:34pm Living Will No January 08 8:27pm Do you have a Healthcare Power of Pipe Straightener? No January 08, 2025 8:27pm Do you have a Healthcare Power of Pipe Straightener? No March 28, 2025 2:20pm Advance Directive Response Recorded Date/ Time Advance Directives on File No April 26, 2025 10:00am Living Will No April 26, 2025 10:00am Do you have a Healthcare Power of Pipe Straightener? No April 26, 2025 10:00am Advance Directives No April 26 10:00am Do you have a Healthcare Power of Pipe Straightener? No April 28, 2025 7:34pm Living Will No January 08 8:27pm Do you have a Healthcare Power of Pipe Straightener? No January 08, 2025 8:27pm Do you have a Healthcare Power of Pipe Straightener? No March 28, 2025 2:20pm Do you have a Healthcare Power of Pipe Straightener? No May 04, 2025 6:13pm Advance Directive Response Recorded Date/ Time Advance Directives on File No April 26, 2025 10:00am Living Will No April 26, 2025 10:00am Do you have a Healthcare Power of Pipe Straightener? No April 26, 2025 10:00am Advance Directives No April 26 10:00am Do you have a Healthcare Power of Pipe Straightener? No April 28, 2025 7:34pm Do you have a Healthcare Power of Pipe Straightener? No March 28, 2025 2:20pm Do you have a Healthcare Power of Pipe Straightener? No May 04, 2025 6:13pm Advance Directive Response Recorded Date/ Time Advance Directives on File No May 10, 2025 11:48am Living Will No May 10, 2025 11:48am Do you have a Healthcare Power of Pipe Straightener? No May 10, 2025 11:48am Advance Directives No May 10 11:48am Do you have a Healthcare Power of Pipe Straightener? No April 28, 2025 7:34pm Do you have a Healthcare Power of Pipe Straightener? No March 28, 2025 2:20pm Do you have a Healthcare Power of Pipe Straightener? No May 04, 2025 6:13pm Advance Directive Response Recorded Date/ Time Advance Directives on File No May 17, 2025 10:28am Living Will No May 17, 2025 1 0:28am Do you have a Healthcare Power of Pipe Straightener? No May 17, 2025 10:28am Advance Directives No May 17 10:28am Do you have a Healthcare Power of Pipe Straightener? No April 28, 2025 7:34pm Do you have a Healthcare Power of Pipe Straightener? No March 28, 2025 2:20pm Do you have a Healthcare Power of Pipe Straightener? No May 04, 2025 6:13pm Advance Directive Response Recorded Date/ Time Advance Directives on File No May 31, 2025 11:30am Living Will No May 31, 2025 11:30am Do you have a Healthcare Power of Pipe Straightener? No May 31, 2025 11:30am Advance Directives No May 31 11:30am Do you have a Healthcare Power of Pipe Straightener? No April 28, 2025 7:34pm Do you have a Healthcare Power of Pipe Straightener? No March 28, 2025 2:20pm Do you have a Healthcare Power of Pipe Straightener? No May 04, 2025 6:13pm Advance Directive Response Recorded Date/ Time Advance Directives on File No June 14, 2025 11:27am Living Will No June 14, 2025 11:27am Do you have a Healthcare Power of Pipe Straightener? No June 14, 2025 11:27am Advance Directives No June 14 11:27am Do you have a Healthcare Power of Pipe Straightener? No April 28, 2025 7:34pm Do you have a Healthcare Power of Pipe Straightener? No March 28, 2025 2:20pm Do you have a Healthcare Power of Pipe Straightener? No May 04, 2025 6:13pm Family History No Family History Records Found [...] or prosecute any alcohol or drug abuse patient.[facility] HospitalIn the event this information is protected by the Federal Confidentiality of Alcohol and Drug Abuse Patient Records regulations: The Federal rules restrict any use of the information to criminally investigate or prosecute any alcohol or drug abuse patient.[facility] HospitalIn the event this information is protected by the Federal Confidentiality of Alcohol and Drug Abuse Patient Records regulations: The Federal rules restrict any use of the information to criminally investigate or prosecute any alcohol or drug abuse patient.[facility] HospitalIn the event this information is protected by the Federal Confidentiality of Alcohol and Drug Abuse Patient Records regulations: The Federal rules restrict any use of the information to criminally investigate or prosecute any alcohol or drug abuse patient.[facility] HospitalIn the event this information is protected by the Federal Confidentiality of Alcohol and Drug Abuse Patient Records regulations: The Federal rules restrict any use of the information to criminally investigate or prosecute any alcohol or drug abuse patient.[facility] HospitalIn the event this information is protected by the Federal Confidentiality of Alcohol and Drug Abuse Patient Records regulations: The Federal rules restrict any use of the information to criminally investigate or prosecute any alcohol or drug abuse patient.[facility] HospitalIn the event this information is protected by the Federal Confidentiality of Alcohol and Drug Abuse Patient Records regulations: The Federal rules restrict any use of the information to criminally investigate or prosecute any alcohol or drug abuse patient.[facility] HospitalIn the event this information is protected by the Federal Confidentiality of Alcohol and Drug Abuse Patient Records regulations: The Federal rules restrict any use of the information to criminally investigate or prosecute any alcohol or drug abuse patient.[facility] HospitalIn the event this information is protected by the Federal Confidentiality of Alcohol and Drug Abuse Patient Records regulations: The Federal rules restrict any use of the information to criminally investigate or prosecute any alcohol or drug abuse patient.[facility] HospitalIn the event this information is protected by the Federal Confidentiality of Alcohol and Drug Abuse Patient Records regulations: The Federal rules restrict any use of the information to criminally investigate or prosecute any alcohol or drug abuse patient.[facility] HospitalIn the event this information is protected by the Federal Confidentiality of Alcohol and Drug Abuse Patient Records regulations: The Federal rules restrict any use of the information to criminally investigate or prosecute any alcohol or drug abuse patient.[facility] HospitalIn the event this information is protected by the Federal Confidentiality of Alcohol and Drug Abuse Patient Records regulations: The Federal rules restrict any use of the information to criminally investigate or prosecute any alcohol or drug abuse patient.[facility] HospitalIn the event this information is protected by the Federal Confidentiality of Alcohol and Drug Abuse Patient Records regulations: The Federal rules restrict any use of the information to criminally investigate or prosecute any alcohol or drug abuse patient.[facility] HospitalIn the event this information is protected by the Federal Confidentiality of Alcohol and Drug Abuse Patient Records regulations: The Federal rules restrict any use of the information to criminally investigate or prosecute any alcohol or drug abuse patient.[facility] HospitalIn the event this information is protected by the Federal Confidentiality of Alcohol and Drug Abuse Patient Records regulations: The Federal rules restrict any use of the information to criminally investigate or prosecute any alcohol or drug abuse patient.[facility] HospitalIn the event this information is protected by the Federal Confidentiality of Alcohol and Drug Abuse Patient Records regulations: The Federal rules restrict any use of the information to criminally investigate or prosecute any alcohol or drug abuse patient.[facility] HospitalIn the event this information is protected by the Federal Confidentiality of Alcohol and Drug Abuse Patient Records regulations: The Federal rules restrict any use of the information to criminally investigate or prosecute any alcohol or drug abuse patient.[facility] HospitalIn the event this information is protected by the Federal Confidentiality of Alcohol and Drug Abuse Patient Records regulations: The Federal rules restrict any use of the information to criminally investigate or prosecute any alcohol or drug abuse patient.[facility] HospitalIn the event this information is protected by the Federal Confidentiality of Alcohol and Drug Abuse Patient Records regulations: The Federal rules restrict any use of the information to criminally investigate or prosecute any alcohol or drug abuse patient.[facility] HospitalIn the event this information is protected by the Federal Confidentiality of Alcohol and Drug Abuse Patient Records regulations: The Federal rules restrict any use of the information to criminally investigate or prosecute any alcohol or drug abuse patient.[facility] HospitalIn the event this information is protected by the Federal Confidentiality of Alcohol and Drug Abuse Patient Records regulations: The Federal rules restrict any use of the information to criminally investigate or prosecute any alcohol or drug abuse patient.[facility] ClinicIn the event this information is protected by the Federal Confidentiality of Alcohol and Drug Abuse Patient Records regulations: The Federal rules restrict any use of the information to criminally investigate or prosecute any alcohol or drug abuse patient.[facility] HospitalIn the event this information is protected by the Federal Confidentiality of Alcohol and Drug Abuse Patient Records regulations: The Federal rules restrict any use of the information to criminally investigate or prosecute any alcohol or drug abuse patient.[facility] HospitalIn the event this information is protected by the Federal Confidentiality of Alcohol and Drug Abuse Patient Records regulations: The Federal rules restrict any use of the information to criminally investigate or prosecute any alcohol or drug abuse patient.[facility] HospitalIn the event this information is protected by the Federal Confidentiality of Alcohol and Drug Abuse Patient Records regulations: The Federal rules restrict any use of the information to criminally investigate or prosecute any alcohol or drug abuse patient.[facility] HospitalIn the event this information is protected by the Federal Confidentiality of Alcohol and Drug Abuse Patient Records regulations: The Federal rules restrict any use of the information to criminally investigate or prosecute any alcohol or drug abuse patient.[facility] HospitalIn the event this information is protected by the Federal Confidentiality of Alcohol and Drug Abuse Patient Records regulations: The Federal rules restrict any use of the information to criminally investigate or prosecute any alcohol or drug abuse patient.[facility] HospitalIn the event this information is protected by the Federal Confidentiality of Alcohol and Drug Abuse Patient Records regulations: The Federal rules restrict any use of the information to criminally investigate or prosecute any alcohol or drug abuse patient.[facility] HospitalIn the event this information is protected by the Federal Confidentiality of Alcohol and Drug Abuse Patient Records regulations: The Federal rules restrict any use of the information to criminally investigate or prosecute any alcohol or drug abuse patient.[facility] HospitalIn the event this information is protected by the Federal Confidentiality of Alcohol and Drug Abuse Patient Records regulations: The Federal rules restrict any use of the information to criminally investigate or prosecute any alcohol or drug abuse patient.[facility] HospitalIn the event this information is protected by the Federal Confidentiality of Alcohol and Drug Abuse Patient Records regulations: The Federal rules restrict any use of the information to criminally investigate or prosecute any alcohol or drug abuse patient.[facility] HospitalIn the event this information is protected by the Federal Confidentiality of Alcohol and Drug Abuse Patient Records regulations: The Federal rules restrict any use of the information to criminally investigate or prosecute any alcohol or drug abuse patient.[facility] HospitalIn the event this information is protected by the Federal Confidentiality of Alcohol and Drug Abuse Patient Records regulations: The Federal rules restrict any use of the information to criminally investigate or prosecute any alcohol or drug abuse patient.[facility] HospitalIn the event this information is protected by the Federal Confidentiality of Alcohol and Drug Abuse Patient Records regulations: The Federal rules restrict any use of the information to criminally investigate or prosecute any alcohol or drug abuse patient.[facility] HospitalIn the event this information is protected by the Federal Confidentiality of Alcohol and Drug Abuse Patient Records regulations: The Federal rules restrict any use of the information to criminally investigate or prosecute any alcohol or drug abuse patient.[facility] HospitalIn the event this information is protected by the Federal Confidentiality of Alcohol and Drug Abuse Patient Records regulations: The Federal rules restrict any use of the information to criminally investigate or prosecute any alcohol or drug abuse patient.[facility] HospitalIn the event this information is protected by the Federal Confidentiality of Alcohol and Drug Abuse Patient Records regulations: The Federal rules restrict any use of the information to criminally investigate or prosecute any alcohol or drug abuse patient.[facility] HospitalIn the event this information is protected by the Federal Confidentiality of Alcohol and Drug Abuse Patient Records regulations: The Federal rules restrict any use of the information to criminally investigate or prosecute any alcohol or drug abuse patient.[facility] HospitalIn the event this information is protected by the Federal Confidentiality of Alcohol and Drug Abuse Patient Records regulations: The Federal rules restrict any use of the information to criminally investigate or prosecute any alcohol or drug abuse patient.[facility] Reason for Visit (unrecogniz ed section and content) Reason Comments Appointment Reason Onset Date Comments Refill Request 02/27/2022 Reason Comments Schedule Surgery Reason Comments Discussion Specialty Diagnoses / Procedures Referred By Contisrael t Referred To Contact RETAIL ASSOCIATE Diagnoses Medication and surgery Procedures MYC SPECIALIST OFFICE VISIT Kyleigh Saucedo MD [address] [place] [address] Kyleigh Saucedo MD [address] [place] [address] Referral ID Status Reason Start Date Expiration Date V isits Requested Visits Authorized [id number] Closed Financial Clearance Required - Self Pay [...] swelling, mass and lump, unspecified site Procedures CA OFFICE/OUTPATIENT NEW HIGH MDM 60 MINUTES Imani Persaud [address] [facility], [address] [place] [address] Phone: tel: fax: [facility] - [address] [place] [address] Phone: tel: fax: Referral ID Status Reason Start Date Expiration Date V isits Requested Visits Authorized [id number] Pending Review 01/16/2025 01/16/2026 1 1 Reason Onset Date Comments Other 01/19/2025 [facility] Reason Comments Post-op Visit 2 wks IPO Reason Comments New Patient Specialty Diagnoses / Procedures Referred By Contac t Referred To Contact Oncology Diagnoses 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 Imani Persaud MB [facility] [address] [place] [address] Phone: tel: fax: Christopher Cunningham MD [address] [place] [address] Phone: tel: fax: Referral ID Status Reason Start Date Expiration Date Visits Requested Visits Authorized [id number] New Request Clinical Trial 02/27/2025 03/24/2026 1 1 Goals (unrecognized section and content) Goals may be documented in a n alternate sectionGoals may be documented in an alternate sectionGoals may be documented in an alternate sectionGoals may be documented in an alternate sectionGoals may be documented in an alternate section Care Teams (unrecognized sec tion and content) Veneer Slicing Machine Operator Relationship Specialty Start Date End Date David Fink MD [address] [place] [address] PCP - General Family Practice 07/27/22 Veneer Slicing Machine Operator Relationship Specialty Start Date End Date David Fink MD [address] [place] [address] PCP - General Family Practice 07/27/22 Veneer Slicing Machine Operator Relationship Specialty Start Date End Date David Fink MD [address] [place] [address] PCP - General Family Practice 07/27/22 Veneer Slicing Machine Operator Relationship Specialty Start Date End Date David Fink MD [address] [place] [address] PCP - General Family Practice 07/27/22 Veneer Slicing Machine Operator Relationship Specialty Start Date End Date David Fink MD [address] [place] [address] PCP - General Family Medicine 07/27/22 Veneer Slicing Machine Operator Relationship Specialty Start Date End Date David Fink MD [address] [place] [address] PCP - General Family Medicine 07/27/22 Team Status: Active Member Role Status Dates Meagan Weinstein SILK SPOTTER, SILK SPOTTER-C Family Provider Active Dr. David Fink MD [...] Dr. Joni Michel MD Attending Provider Active Veneer Slicing Machine Operator Relationship Specialty Start Date End Date David Fink MD [address] [place] [address] PCP - General Family Medicine 07/27/22 Veneer Slicing Machine Operator Relationship Specialty Start Date End Date David Fink MD [address] [place] [address] PCP - General Family Medicine 07/27/22 Veneer Slicing Machine Operator Relationship Specialty Start Date End Date David Fink MD [address] [place] [address] PCP - General Family Medicine 07/27/22 Veneer Slicing Machine Operator Relationship Specialty Start Date End Date David Fink MD [address] [place] [address] PCP - General Family Medicine 07/27/22 Veneer Slicing Machine Operator Relationship Specialty Start Date End Date David Fink MD [address] [place] [address] PCP - General Family Medicine 07/27/22 Veneer Slicing Machine Operator Relationship Specialty Start Date End Date David Fink MD [address] [place] [address] PCP - General Family Medicine 07/27/22 Veneer Slicing Machine Operator Relationship Specialty Start Date End Date David Fink MD [address] [place] [address] PCP - General Family Medicine 07/27/22 Veneer Slicing Machine Operator Relationship Specialty Start Date End Date David Fink MD [address] [place] [address] PCP - General Family Medicine 07/27/22 Veneer Slicing Machine Operator Relationship Specialty Start Date End Date David Fink MD [address] [place] [address] PCP - General Family Medicine 07/27/22 Veneer Slicing Machine Operator Relationship Specialty Start Date End Date David Fink MD [address] [place] [address] PCP - General Family Medicine 07/27/22 Veneer Slicing Machine Operator Relationship Specialty Start Date End Date David Fink MD [address] [place] [address] PCP - General Family Medicine 07/27/22 Veneer Slicing Machine Operator Relationship Specialty Start Date End Date David Fink MD [address] [place] [address] PCP - General Family Medicine 07/27/22 Veneer Slicing Machine Operator Relationship Specialty Start Date End Date David Fink MD [address] [place] [address] PCP - General Family Medicine 07/27/22 Veneer Slicing Machine Operator Relationship Specialty Start Date End Date David Fink MD [address] [place] [address] PCP - General Family Medicine 07/27/22 Veneer Slicing Machine Operator Relationship Specialty Start Date End Date David Fink MD [address] [place] [address] PCP - General Family Medicine 07/27/22 Hilda Morin APRN.DOCUMENT MANAGEMENT TECHNICIAN [address] [place] [address] Vice President Quality Family Medicine 10/23/24 India Clifton ROLL ICER MACHINE.DOCUMENT MANAGEMENT TECHNICIAN [address] [place] [address] Vice President Quality Family Medicine 10/23/24 Veneer Slicing Machine Operator Relationship Specialty Start Date End Date David Fink MD [address] [place] [address] PCP - General Family Medicine 07/27/22 Hilda Morin, ROLL ICER MACHINE.DOCUMENT MANAGEMENT TECHNICIAN [address] [place] [address] Vice President Quality Family Medicine 10/23/24 India Clifton ROLL ICER MACHINE.DOCUMENT MANAGEMENT TECHNICIAN [address] [place] [address] Vice President Quality [facility] 10/23/24 Veneer Slicing Machine Operator Relationship Specialty Start Date End Date David Fink MD [address] [place] [address] PCP - General Family Medicine 01/17/25 Darvin Grady MD [address] [place] [address] [address] [place] [address] Consulting Physician Gynecologic Oncology 01/16/25 Veneer Slicing Machine Operator Relationship Specialty Start Date End Date David Fink MD [address] [place], [place] [address] PCP - General Family Medicine 01/17/25 Darvin Grady MD [address] [facility] [address] [place], [place] [id number] Consulting Physician Gynecologic Oncology 01/16/25 Veneer Slicing Machine Operator Relationship Specialty Start Date End Date David Fink MD [address] [place] [address] PCP - General Family Medicine 01/17/25 Darvin Grady MD [address] [facility] [address] [place] [address] Consulting Physician Gynecologic Oncology 01/16/25 Veneer Slicing Machine Operator Relationship Specialty Start Date End Date David Fink MD [address] [place] [address] PCP - General Family Medicine 01/17/25 Darvin Grady MD [address] [facility] [address] [place] [address] Consulting Physician Gynecologic Oncology 01/16/25 Team Status: [...] January 10, 2025 End: January 10, 2025 Nabil Aslanides , SILK SPOTTER-C Referring Provider Active Start: January 10, 2025 [...] January 12, 2025 End: January 12, 2025 Veneer Slicing Machine Operator Relationship Specialty Start Date End Date David Fink MD [address] [place] [address] PCP - General Family Medicine 01/17/25 Darvin Grady MD [address] [place] [address] Consulting Physician Gynecologic Oncology 01/16/25 Ashok Herbert, ROLL ICER MACHINE - DOCUMENT MANAGEMENT TECHNICIAN [address] [place] [address] Nurse Practitioner Nurse Practitioner 02/14/25 Veneer Slicing Machine Operator Relationship Specialty Start Date End Date David Fink MD [address] [place] [address] PCP - General Family Medicine 01/17/25 Darvin Grady MD [address] [place] [address] Consulting Physician Gynecologic Oncology 01/16/25 Ashok Herbert, ROLL ICER MACHINE - DOCUMENT MANAGEMENT TECHNICIAN [address] [place] [address] Nurse Practitioner Nurse Practitioner 02/14/25 Veneer Slicing Machine Operator Relationship Specialty Start Date End Date David Fink MD [address] [place] [address] PCP - General Family Medicine 01/17/25 Darvin Grady MD [address] [facility] [address] [place] [address] Consulting Physician Gynecologic Oncology 01/16/25 Ashok Herbert, ROLL ICER MACHINE - DOCUMENT MANAGEMENT TECHNICIAN [address] [facility] [address] [place] [address] Nurse Practitioner Nurse Practitioner 02/14/25 Veneer Slicing Machine Operator Relationship Specialty Start Date End Date David Fink MD [address] [place] [address] PCP - General Family Medicine 01/17/25 Darvin Grady MD [address] [facility] [address] [place] [address] Consulting Physician Gynecologic Oncology 01/16/25 Ashok Herbert, ROLL ICER MACHINE - DOCUMENT MANAGEMENT TECHNICIAN [address] [facility] [address] [place] [address] Nurse Practitioner Nurse Practitioner 02/14/25 Veneer Slicing Machine Operator Relationship Specialty Start Date End Date David Fink MD [address] [place] [address] PCP - General Family Medicine 01/17/25 Darvin Grady MD [address] [facility] [address] [place] [address] Consulting Physician Gynecologic Oncology 01/16/25 Ashok Herbert, ROLL ICER MACHINE - DOCUMENT MANAGEMENT TECHNICIAN [address] [facility] [address] [place] [address] Nurse Practitioner Nurse Practitioner 02/14/25 Team Status: [...] Other Provider Active Start: April 02, 2025 Veneer Slicing Machine Operator Relationship Specialty Start Date End Date David Fink MD [address] [facility], [place] [address] PCP - General Family Medicine 02/27/25 Imani Persaud MB [facility] [address] [facility] [place], [place] [address] Oncologist Medical Oncology 02/27/25 Shannan Kearney, RN Registered Nurse 02/27/25 Team Status: Inactive Member Role Status Dates Dr. David Fink MD Primary Care Provider Active Start: April 04, 2025 End: April 04, 2025 Dr. David Fink MD Referring Provider Active Start: April 04, 2025 End: April 04, 2025 Delmis Corral SILK SPOTTER, SILK SPOTTER-C Attending Provider Active Start: April 04, 2025 End: April 04, 2025 Team Status: Inactive Member Role Status Dates Dr. David Fink MD Primary Care Provider Active Start: April 18, 2025 End: April 18, 2025 Dr. David Fink MD Referring Provider Active Start: April 18, 2025 End: April 18, 2025 Keron Ross SILK SPOTTER, SILK SPOTTER-C Attending Provider Active S tart: April 18, [...] 2025 End: May 03, 2025 Delmis Corral SILK SPOTTER, SILK SPOTTER-C Attending Provider Active Start: May 03, 2025 End: May 03, 2025 Team Status: Inactive Member Role Status Dates Dr. David Fink MD Primary Care Provider Active Start: April 28, 2025 End: April 28, 2025 Dr. Girish Mcgarry DO Attending Provider Active Start: April 28, 2025 End: April 28, 2025 Dr. Girish Mcgarry DO Emergency Provider Active Start: April 28, 2025 End: April 28, 2025 Team Status: Inactive Member Role Status Dates Dr. David Fink MD Primary Care Provider Active Start: May 04, 2025 End: May 04, 2025 Dr. Girish Mcgarry DO Emergency Provider Active Start: May 04, 2025 End: May 04, 2025 Team Status: Inactive Member Role Status Dates Dr. David Fink MD Primary Care Provider Active Start: May 04, 2025 End: May 04, 2025 Dr. Girish Mcgarry DO Attending Provider Active Start: May 04, 2025 End: May 04, 2025 Dr. Girish Mcgarry DO Emergency Provider Active Start: May 04, 2025 End: May 04, 2025 Team Status: Inactive Member Role Status Dates Dr. David Fink MD Primary Care Provider Active Start: May 10, 2025 End: May 10, 2025 Dr. David Fink MD Referring Provider Active Start: May 10, 2025 End: May 10, 2025 Delmis Corral SILK SPOTTER, SILK SPOTTER-C Attending Provider Active Start: May 10, 2025 End: May 10, 2025 Team Status: Active Member Role Status Dates Dr. David Fink MD Primary Care Provider Active Start: May 10, 2025 Dr. Imani Persaud MD Attending Provider Active Start: May 10, 2025 Dr. Imani Persaud MD Referring Provider Active Start: May 10, 2025 Team Status: Active Member Role/Relationship Status Dates Dr. David Fink MD Primary Care Provider Active Team Status: Inactive Member Role/Relationship Status Dates Dr. David Fink MD Primary Care Provider Active Start: February 26, 2025 End: February 26, 2025 Dr. David Fink MD Referring Provider Active Start: February 26, 2025 End: February 26, 2025 Dr. Imani Persaud MD Attending Provider Active Start: February 26, 2025 End: February 26, 2025 Team Status: Inactive Member Role/Relationship Status Dates Dr. David Fink MD Primary Care Provider Active Start: March 26, 2025 End: March 26, 2025 Dr. David Fink MD Referring Provider Active Start: March 26, 2025 End: March 26, 2025 Dr. Theo Richard MD Attending Provider Active Start: March 26, 2025 End: March 26, 2025 Team Status: Inactive Member Role/Relationship Status Dates Dr. David Fink MD Primary Care Provider Active Start: March 26, 2025 End: March 26, 2025 Dr. Imani Persaud MD Attending Provider Active Start: March 26, 2025 End: March 26, 2025 Dr. Imani Persaud MD Referring Provider Active Start: March 26, 2025 End: March 26, 2025 Team Status: Inactive Member Role/Relationship Status Dates Dr. David Fink MD Primary Care Provider Active Start: March 28, 2025 End: March 28, 2025 Dr. David Fink MD Referring Provider Active Start: March 28, 2025 End: March 28, 2025 Dr. Imani Persaud MD Attending Provider Active Start: March 28, 2025 End: March 28, 2025 Team Status: Inactive Member Role/Relationship Status Dates Dr. David Fink MD Primary Care Provider Active Start: April 02, 2025 End: April 02, 2025 Dr. Theo Richard MD Attending Provider Active Start: April 02, 2025 End: April 02, 2025 Dr. Theo Richard MD Referring Provider Active Start: April 02, 2025 End: April 02, 2025 Team Status: Active Member Role/Relationship Status Dates Dr. David Fink MD Primary Care Provider Active Start: April 02, 2025 Dr. Theo Richard MD Attending Provider Active Start: April 02, 2025 Dr. Theo Richard MD Referring Provider Active Start: April 02, 2025 Dr. Theo Richard MD Other Provider Active Start: April 02, 2025 Team Status: Inactive Member Role/Relationship Status Dates Dr. David Fink MD Primary Care Provider Active Start: April 04, 2025 End: April 04, 2025 Dr. David Fnik MD Referring Provider Active Start: April 04, 2025 End: April 04, 2025 Delmis Corral SILK SPOTTER, SILK SPOTTER-C Attending Provider Active Start: April 04, 2025 End: April 04, 2025 Team Status: Inactive Member Role/Relationship Status Dates Dr. David Fink MD Primary Care Provider Active Start: April 18, 2025 End: April 18, 2025 Dr. David Fink MD Referring Provider Active Start: April 18, 2025 End: April 18, 2025 Keron Ross SILK SPOTTER, SILK SPOTTER-C Attending Provider Active S tart: April 18, 2025 End: April 18, 2025 Team Status: Inactive Member Role/Relationship Status Dates Dr. David Fink MD Primary Care Provider Active Start: April 19, 2025 End: April 19, 2025 Dr. David Fink MD Referring Provider Active Start: April 19, 2025 End: April 19, 2025 Dr. Imani Persaud MD Attending Provider Active Start: April 19, 2025 End: April 19, 2025 Team Status: Inactive Member Role/Relationship Status Dates Dr. David Fink MD Primary Care Provider Active Start: April 26, 2025 End: April 26, 2025 Dr. David Fink MD Referring Provider Active Start: April 26, 2025 End: April 26, 2025 Dr. Imani Persaud MD Attending Provider Active Start: April 26, 2025 End: April 26, 2025 Team Status: Inactive Member Role/Relationship Status Dates Dr. David Fink MD Primary Care Provider Active Start: April 28, 2025 End: April 28, 2025 Dr. Girish Mcgarry DO Attending Provider Active Start: April 28, 2025 End: April 28, 2025 Dr. Girish Mcgarry DO Emergency Provider Active Start: April 28, 2025 End: April 28, 2025 Team Status: Inactive Member Role/Relationship Status Dates Dr. David Fink MD Primary Care Provider Active Start: May 03, 2025 End: May 03, 2025 Dr. David Fink MD Referring Provider Active Start: May 03, 2025 End: May 03, 2025 Delmis Corral SILK SPOTTER, SILK SPOTTER-C Attending Provider Active Start: May 03, 2025 End: May 03, 2025 Team Status: Inactive Member Role/Relationship Status Dates Dr. David Fink MD Primary Care Provider Active Start: May 04, 2025 End: May 04, 2025 Dr. Girish Mcgarry DO Attending Provider Active Start: May 04, 2025 End: May 04, 2025 Dr. Girish Mcgarry DO Emergency Provider Active Start: May 04, 2025 End: May 04, 2025 Team Status: Inactive Member Role/Relationship Status Dates Dr. David Fink MD Primary Care Provider Active Start: May 10, 2025 End: May 10, 2025 Dr. David Fink MD Referring Provider Active Start: May 10, 2025 End: May 10, 2025 Delmis Corral SILK SPOTTER, SILK SPOTTER-C Attending Provider Active Start: May 10, 2025 End: May 10, 2025 Team Status: Inactive Member Role/Relationship Status Dates Dr. David Fink MD Primary Care Provider Active Start: May 17, 2025 End: May 17, 2025 Dr. David Fink MD Referring Provider Active Start: May 17, 2025 End: May 17, 2025 Dr. Imani Persaud MD Attending Provider Active Start: May 17, 2025 End: May 17, 2025 Team Status: Active Member Role/Relationship Status Dates Dr. David Fink MD Primary Care Provider Active Start: May 17, 2025 Dr. Imani Persaud MD Attending Provider Active Start: May 17, 2025 Dr. Imani Persaud MD Referring Provider Active Start: May 17, 2025 Team Status: Inactive Member Role/Relationship Status Dates Dr. David Fink MD Primary Care Provider Active Start: May 31, 2025 End: May 31, 2025 Dr. David Fink MD Referring Provider Active Start: May 31, 2025 End: May 31, 2025 Delmis Corral SILK SPOTTER, SILK SPOTTER-C Attending Provider Active Start: May 31, 2025 End: May 31, 2025 Team Status: Active Member Role/Relationship Status Dates Dr. David Fink MD Primary Care Provider Active Start: May 31, 2025 Dr. Imani Persaud MD Attending Provider Active Start: May 31, 2025 Dr. Imani Persaud MD Referring Provider Active Start: May 31, 2025 Team Status: Active Member Role/Relationship Status Dates Dr. David Fink MD Primary Care Provider Active Start: June 07, 2025 Dr. Imani Persaud MD Attending Provider Active Start: June 07, 2025 Dr. Imani Persaud MD Referring Provider Active Start: June 07, 2025 Team Status: Inactive Member Role/Relationship Status Dates Dr. David Fink MD Primary Care Provider Active Start: June 07, 2025 End: June 07, 2025 Dr. David Fink MD Referring Provider Active Start: June 07, 2025 End: June 07, 2025 Delmis Shayna SILK SPOTTER, SILK SPOTTER-C Attending Provider Active Start: June 07, 2025 End: June 07, 2025 Team Status: Inactive Member Role/Relationship Status Dates Dr. David Fink MD Primary Care Provider Active Start: June 08, 2025 End: June 08, 2025 Delmis Shayna SILK SPOTTER, SILK SPOTTER-C Attending Provider Active Start: June 08, 2025 End: June 08, 2025 Delmis Shayna SILK SPOTTER, SILK SPOTTER-C Referring Provider Active Start: June 08, 2025 End: June 08, 2025 Team Status: Inactive Member Role/Relationship Status Dates Dr. David Fink MD Primary Care Provider Active Start: June 07, 2025 End: June 07, 2025 Dr. David Fink MD Referring Provider Active Start: June 07, 2025 End: June 07, 2025 Demlis Shayna SILK SPOTTER, SILK SPOTTER-C Attending Provider Active Start: June 07, 2025 End: June 07, 2025 Team Status: Inactive Member Role/Relationship Status Dates Dr. David Fink MD Primary Care Provider Active Start: June 08, 2025 End: June 08, 2025 Delmis Shayna SILK SPOTTER, SILK SPOTTER-C Attending Provider Active Start: June 08, 2025 End: June 08, 2025 Delmis Shayna SILK SPOTTER, SILK SPOTTER-C Referring Provider Active Start: June 08, 2025 End: June 08, 2025 Team Status: Inactive Member Role/Relationship Status Dates Dr. David Fink MD Primary Care Provider Active Start: June 14, 2025 End: June 14, 2025 Dr. David Fink MD Referring Provider Active Start: June 14, 2025 End: June 14, 2025 Dr. Richi Moore MD Attending Provider Active S tart: June 14, 2025 End: June 14, 2025 Team Status: Active Member Role/Relationship Status Dates Dr. David Fink MD Primary Care Provider Active Start: June 14, 2025 Dr. Imani Persaud MD Attending Provider Active Start: June 14, 2025 Dr. Imani Persaud MD Referring Provider Active Start: June 14, 2025 Team Status: Inactive Member Role/Relationship Status Dates Dr. David Fink MD Primary Care Provider Active Start: March 26, 2025 End: March 26, 2025 Dr. David Fink MD Referring Provider Active Start: March 26, 2025 End: March 26, 2025 Dr. Theo Richard MD Attending Provider Active Start: March 26, 2025 End: March 26, 2025 Team Status: Inactive Member Role/Relationship Status Dates Dr. David Fink MD Primary Care Provider Active Start: March 26, 2025 End: March 26, 2025 Dr. Imani Persaud MD Attending Provider Active Start: March 26, 2025 End: March 26, 2025 Dr. Imani Persaud MD Referring Provider Active Start: March 26, 2025 End: March 26, 2025 Team Status: Inactive Member Role/Relationship Status Dates Dr. David Fink MD Primary Care Provider Active Start: March 28, 2025 End: March 28, 2025 Dr. David Fink MD Referring Provider Active Start: March 28, 2025 End: March 28, 2025 Dr. Imani Persaud MD Attending Provider Active Start: March 28, 2025 End: March 28, 2025 Team Status: Inactive Member Role/Relationship Status Dates Dr. David Fink MD Primary Care Provider Active Start: April 02, 2025 End: April 02, 2025 Dr. Theo Richard MD Attending Provider Active Start: April 02, 2025 End: April 02, 2025 Dr. Theo Richard MD Referring Provider Active Start: April 02, 2025 End: April 02, 2025 Team Status: Active Member Role/Relationship Status Dates Dr. David Fink MD Primary Care Provider Active Start: April 02, 2025 Dr. Theo Richard MD Attending Provider Active Start: April 02, 2025 Dr. Theo Richard MD Referring Provider Active Start: April 02, 2025 Dr. Theo Richard MD Other Provider Active Start: April 02, 2025 Team Status: Inactive Member Role/Relationship Status Dates Dr. David Fink MD Primary Care Provider Active Start: April 04, 2025 End: April 04, 2025 Dr. David Fink MD Referring Provider Active Start: April 04, 2025 End: April 04, 2025 Delmis Corral SILK SPOTTER, SILK SPOTTER-C Attending Provider Active Start: April 04, 2025 End: April 04, 2025 Team Status: Inactive Member Role/Relationship Status Dates Dr. David Fink MD Primary Care Provider Active Start: April 18, 2025 End: April 18, 2025 Dr. David Fink MD Referring Provider Active Start: April 18, 2025 End: April 18, 2025 Keron Ross NP, SILK SPOTTER-C Attending Provider Active S tart: April 18, 2025 End: April 18, 2025 Team Status: Inactive Member Role/Relationship Status Dates Dr. David Fink MD Primary Care Provider Active Start: April 19, 2025 End: April 19, 2025 Dr. David Fink MD Referring Provider Active Start: April 19, 2025 End: April 19, 2025 Dr. Imani Persaud MD Attending Provider Active Start: April 19, 2025 End: April 19, 2025 Team Status: Inactive Member Role/Relationship Status Dates Dr. David Fink MD Primary Care Provider Active Start: April 26, 2025 End: April 26, 2025 Dr. David Fink MD Referring Provider Active Start: April 26, 2025 End: April 26, 2025 Dr. Imani Persaud MD Attending Provider Active Start: April 26, 2025 End: April 26, 2025 Team Status: Inactive Member Role/Relationship Status Dates Dr. David Fink MD Primary Care Provider Active Start: April 28, 2025 End: April 28, 2025 Dr. Girish Mcgarry DO Attending Provider Active Start: April 28, 2025 End: April 28, 2025 Dr. Girish Mcgarry DO Emergency Provider Active Start: April 28, 2025 End: April 28, 2025 Team Status: Inactive Member Role/Relationship Status Dates Dr. David Fink MD Primary Care Provider Active Start: May 03, 2025 End: May 03, 2025 Dr. David Fink MD Referring Provider Active Start: May 03, 2025 End: May 03, 2025 Delmis Corral SILK SPOTTER, SILK SPOTTER-C Attending Provider Active Start: May 03, 2025 End: May 03, 2025 Team Status: Inactive Member Role/Relationship Status Dates Dr. David Fink MD Primary Care Provider Active Start: May 04, 2025 End: May 04, 2025 Dr. Girish Mcgarry DO Attending Provider Active Start: May 04, 2025 End: May 04, 2025 Dr. Girish Mcgarry DO Emergency Provider Active Start: May 04, 2025 End: May 04, 2025 Team Status: Inactive Member Role/Relationship Status Dates Dr. David Fink MD Primary Care Provider Active Start: May 10, 2025 End: May 10, 2025 Dr. David Fink MD Referring Provider Active Start: May 10, 2025 End: May 10, 2025 Delmis Corral SILK SPOTTER, SILK SPOTTER-C Attending Provider Active Start: May 10, 2025 End: May 10, 2025 Team Status: Inactive Member Role/Relationship Status Dates Dr. David Fink MD Primary Care Provider Active Start: May 17, 2025 End: May 17, 2025 Dr. David Fink MD Referring Provider Active Start: May 17, 2025 End: May 17, 2025 Dr. Imani Persaud MD Attending Provider Active Start: May 17, 2025 End: May 17, 2025 Team Status: Inactive Member Role/Relationship Status Dates Dr. David Fink MD Primary Care Provider Active Start: May 31, 2025 End: May 31, 2025 Dr. David Fink MD Referring Provider Active Start: May 31, 2025 End: May 31, 2025 Delmis Corral SILK SPOTTER, SILK SPOTTER-C Attending Provider Active Start: May 31, 2025 End: May 31, 2025 Team Status: Inactive Member Role/Relationship Status Dates Dr. David Fink MD Primary Care Provider Active Start: June 07, 2025 End: June 07, 2025 Dr. David Fink MD Referring Provider Active Start: June 07, 2025 End: June 07, 2025 Delmis Corral SILK SPOTTER, SILK SPOTTER-C Attending Provider Active Start: June 07, 2025 End: June 07, 2025 Team Status: Inactive Member Role/Relationship Status Dates Dr. David Fink MD Primary Care Provider Active Start: June 08, 2025 End: June 08, 2025 Delmis Corral SILK SPOTTER, SILK SPOTTER-C Attending Provider Active Start: June 08, 2025 End: June 08, 2025 Delmis Corral SILK SPOTTER, SILK SPOTTER-C Referring Provider Active Start: June 08, 2025 End: June 08, 2025 Team Status: Inactive Member Role/Relationship Status Dates Dr. David Fink MD Primary Care Provider Active Start: June 14, 2025 End: June 14, 2025 Dr. David Fink MD Referring Provider Active Start: June 14, 2025 End: June 14, 2025 Dr. Richi Moore MD Attending Provider Active S tart: June 14, 2025 End: June 14, 2025 Team Status: Inactive Member Role/Relationship Status Dates Dr. David Fink MD Primary Care Provider Active Start: June 28, 2025 End: June 28, 2025 Dr. David Fink MD Referring Provider Active Start: June 28, 2025 End: June 28, 2025 Dr. Imani Persaud MD Attending Provider Active Start: June 28, 2025 End: June 28, 2025 Team Status: Active Member Role/Relationship Status Dates Dr. David Fink MD Primary Care Provider Active Start: June 28, 2025 Dr. Imani Persaud MD Attending Provider Active Start: June 28, 2025 Dr. Imani Persaud MD Referring Provider Active Start: June 28, 2025 Team Status: Inactive Member Role/Relationship Status Dates Dr. David Fink MD Primary Care Provider Active Start: July 12, 2025 End: July 12, 2025 Dr. David Fink MD Referring Provider Active Start: July 12, 2025 End: July 12, 2025 Delmis Corral SILK SPOTTER, SILK SPOTTER-C Attending Provider Active Start: July 12, 2025 End: July 12, 2025 Team Status: Active Member Role/Relationship Status Dates Dr. David Fink MD Primary Care Provider Active Start: July 12, 2025 Dr. Imani Persaud MD Attending Provider Active Start: July 12, 2025 Dr. Imani Persaud MD Referring Provider Active Start: July 12, 2025 Scheduled Active and Recently Administ ered [...] RN)2156 (Given - Provider: Veda Hickman, RAMONE) losartan (Cozaar) tablet 25 mg 25 mg, [...] Reason: Other - Comment: Hold per , 97, HR 59) metroNIDAZOLE (Flagyl) IVPB 500 mg [...] II/On Unit 2157 (Given - Provider: Veda Hickman RN) 0914 (Given - Provider: Gladis Rubalcava, RAMONE) [...] sedation for opioid reversal - MUST notify avionics systems technician provider immediately after first dose, may give [...] section and content) DATE CREATED AUTHOR 02/16/2025 [facility] DATE CREATED AUTHOR AUTHOR'S ORGANIZ ATION 02/17/2025 [facility] DATE CREATED AUTHOR AUTHOR'S ORGANIZ ATION 05/09/2025 [facility] DATE CREATED AUTHOR AUTHOR'S ORGANIZ ATION 07/14/2025 [facility] FOR RECORDS PERTAINING TO PATIENTS WHO ARE [...] BE BASED ON THE PRIMARY CLINICAL RECORDS. [employer] provides no warranty or guarantee of the accuracy or completeness of information in this document.
[2025-07-16 11:05] LABS: Neutrophil-Band 1 % (0-5); Neutrophil-Segmented 97 % (47-70); Total Cells Counted 100 (MANUAL DIFF)
[2025-07-16 11:06] LABS: Red Cell Morphology NORM C+C NORMAL (NORM C&C)
[2025-07-16 11:07] LABS: CPK Total, Creatine Kinase 59 U/L (24-195)
[2025-07-16 11:11] LABS: Mucous, Urine 0 SEEN /hpf (<or=2+)
[2025-07-16 11:11] LABS: Magnesium 1.8 mg/dL (1.5-2.2); Troponin T High Sensitivity 21 ng/L (<=14)
[2025-07-16 11:13] LABS: AST(SGOT) 23 U/L (<=31); Alanine Aminotransfer ALT/SGPT 15 U/L (<=34); Albumin, Serum 2.9 g/dL (3.5-5.0); Alkaline Phosphatase 64 U/L (35-104); Anion Gap 9 (5-15); BUN 13 mg/dL (4-19); BUN/Creat Ratio 20.1 RATIO (10-20); Calcium,Total 8.1 mg/dL (7.6-11.0); Carbon Dioxide 18.2 mmol/L (21.0-32.0); Chloride 101 mmol/L (98-108); Estimated Creatinine Clearance 124.15 ml/min (50-250); Globulin 2.8 g/dL (2.2-4.2); Glucose 105 mg/dL (70-99); Potassium 4.1 mmol/L (3.3-5.1); Pro- Brain NATRIURETIC PEPTIDE 4642 pg/mL (<=900)
[2025-07-16 11:13] LABS: Color, Urine Yellow (Yellow); Glucose, Dipstick Normal (Normal); Ketone-Dipstick 15 mg/dl (Negative); Leukocyte Esterase-Dipstick 500 /ul (Negative); Nitrite-Dipstick Negative (Negative); Occult Blood-Urine 250 /ul (Negative); Protein-Dipstick 100 mg/dl (Negative); Specific Gravity, Urine 1.015 (1.002-1.030)
[2025-07-16 11:14] LABS: Urine Bilirubin Dipstick 1 mg/dL (Negative)
[2025-07-16 11:21] LABS: Red Blood Cells-Urine 25-50 SEEN /hpf (0-5); Squamous Epithelial Cells - UA 0-5 SEEN /hpf (5-10)
[2025-07-16] MEDS: Piperacil/Tazobactam 3.375 GM in 0.9% Normal Saline (50mL MB+) 50 ML IV ×2 (12:37→22:09)
[2025-07-16 12:50] LABS: Troponin T High Sens 2 HR 20 ng/L (<=14)
--- NOTE | 2025-07-16 13:46 | PCM.HP.STD ---
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 Persaud presented to [facility] ED 07/16/2025 due to generalized weakness. In the ED temp 102.3, heart rate 107 and blood pressure 104/68, respiratory rate 18 pulse ox 100% on room air. CBC with a white blood cell count 8.8, hemoglobin 10.6, platelet count 121 and left shift noted, CK 59, CMP did show sodium of 128 down from 136 several days ago, bicarb of 18.2 with a gap of 9, BUN 13 creatinine 0.63, Trope found to be 21 with a repeat of 20 and a proBNP of 4600 but chest x-ray with no acute process. UA suspicious for UTI. Patient given IV antibiotics and due to her weakness and urinary tract infection hospitalist contacted for admission. Patient evaluated at bedside with present. Reportedly patient has had some nausea since her chemotherapy and some urinary incontinence both of which are typical after her chemo however yesterday she had a little bit of a headache and just felt very tired so she went to bed, went to the bathroom at 2 AM and was unable to get off the toilet, she crawled into her room and slept on the floor, reports she has had a runny nose and a little bit of a wet cough since then she thinks this is because there was a lot of dust and that it is allergy nature. Denies abdominal pain, denies diarrhea, did not know she had a fever at home. Denies any chest pain or shortness of breath. Denies any swelling. Does report she gets a little lightheaded when she sits up, did not really eat yesterday but has been trying to keep up on her fluids. 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 Hypokalemia Encounter for chemotherapy management Severe neutropenia Anemia Dark urine Oral candidiasis Encounter for education Cancer Back pain Shortness of breath on exertion Leg cramps History of stress test Primary leiomyosarcoma of pelvis Anemia due to chronic blood loss Menorrhagia Wears dentures High cholesterol Loss of consciousness Gastric reflux Smoker Cardiology follow-up encounter History of echocardiogram Cardiac murmur History of non-ST elevation myocardial infarction (NSTEMI) (06/2014) Essential (primary) hypertension Atherosclerosis of coronary artery without angina pectoris Kidney stones Home Medications ?Medication ?Instructions ?Recorded ?Last Taken ?Type aspirin 81 mg chewable tablet 81 mg PO DAILY@0800 hx of mi 06/09/19 03/28/25 History atorvastatin 80 mg tablet 80 mg PO QHS cholesterol #90 tabs 11/29/23 Unknown Rx Allergy/AdvReac Type Severity Reaction Status Date / Time No Known Allergies Allergy Verified 07/16/25 09:19 Family History Father Kidney disease Aunt Cancer paternal Other Heart disease Surgical History H/O pelvic mass (~01/26/25) History of cardiac catheterization Hx of oral surgery Hx laparoscopic cholecystectomy Hx of left cataract extraction History of hysterectomy Cataract extraction status of right eye Hx of tubal ligation History of coronary artery stent placement (03/31/21) Social History household members: spouse housing: house Smoking Status: Current every day smoker tobacco type: cigarettes Tobacco: How many years used: 39 quit status: considering quitting alcohol intake: never substance use type: does not use caffeine: Yes Type: coffee Number of servings: 1 and tea Number of servings: 2 ROS ROS Narrative General: Did not note a fever at home but was febrile in the ED HENT: Little bit of a stuffy nose, headache yesterday, denies sore throat EYES: Denies changes in vision Resp: Chronic cough but since yesterday has been a little bit of a wet cough, denies shortness of breath Cardiac: Denies chest pain GI: Denies abdominal pain, denies changes in bowel, little bit nauseous since chemo : Urinary incontinence after chemo which happens every time per patient Extremity: Denies swelling MSK: Generalized weakness with no focal weakness Neuro: Chronic problems with neuropathy Heme: Denies any bleeding or bruising Skin: Denies rashes Psychiatric: No complaints voiced Vital Signs Vital Signs Vital Signs: 07/16/25 09:19 07/16/25 09:21 07/16/25 09:22 Temperature 102.3 F H 100.7 F H Temperature Source Oral Oral Pulse Rate 107 H 103 H Respiratory Rate 18 24 H Respiratory Effort Normal Non-Labored Respiratory Pattern Normal Blood Pressure 104/68 102/55 L Blood Pressure Mean 80 70 Pulse Ox 100 100 Oxygen Delivery Method Room Air Room Air 07/16/25 09:23 07/16/25 10:34 07/16/25 11:00 Temperature 100.9 F H 100.7 F H Temperature Source Oral Oral Pulse Rate 109 H 108 H Respiratory Rate 20 H 16 Respiratory Effort Normal Non-Labored Respiratory Pattern Blood Pressure 102/68 97/64 Blood Pressure Mean 79 75 Pulse Ox 98 98 Oxygen Delivery Method Room Air Room Air 07/16/25 12:00 07/16/25 13:00 07/16/25 13:19 Temperature 100.3 F H 99.8 F H 99.2 F H Temperature Source Oral Oral Pulse Rate 100 99 99 Respiratory Rate 19 H 22 H 16 Respiratory Effort Respiratory Pattern Blood Pressure 117/69 115/67 98/66 Blood Pressure Mean 85 83 76 Pulse Ox 100 93 97 Oxygen Delivery Method Room Air Room Air Weight Weight: 100.2 kg Body Mass Index (BMI) 34.6 Physical Exam Narrative General: Alert, oriented HEENT: Atraumatic, normocephalic Eyes: Anicteric, normal conjunctiva, extraocular movements grossly intact Neck: Supple Respiratory: Some transmitted upper airway sounds, normal respiratory effort Cardiovascular: Regular rate and rhythm GI: Soft, no rebound, guarding, rigidity, nondistended Extremities: No edema Musculoskeletal: Moving all extremities Neuro: No overt focal neurological deficits Skin: No rashes appreciated Psych: Cooperative Results Lab / Micro Data 07/16/25 10:30 07/16/25 10:30 Labs: Laboratory Results - last 24 hr 07/16/25 10:30: WBC 8.8, RBC 3.28 L, Hgb 10.6 L, Hct 32.0 L, MCV 97.6, MCH 32.3 H, MCHC 33.1, RDW Std Deviation 58.3 H, RDW Coeff of Estella 16.1 H, Plt Count 121 L, MPV 10.9, Neut % (Auto) Not Reportable, Absolute Neuts (auto) 8.6 H, Absolute Lymphs (auto) 0.08 L, Total Counted 100, Neutrophils % (Manual) 97 H, Band Neutrophils % 1, Lymphocytes % (Manual) 1 L, Basophils % (Manual) 1, Diff Path Review March, Platelet Estimate MOD, RBC Morphology NORM C+C, PT 17.1 H, INR 1.4, APTT 38.2 H, Sodium 128 L, Potassium 4.1, Chloride 101, Carbon Dioxide 18.2 L, Anion Gap 9, BUN 13, Creatinine 0.63 L, Estim Creat Clear Calc 124.15, Est GFR (MDRD) Non-Af 105, BUN/Creatinine Ratio 20.1 H, Glucose 105 H, Lactic Acid 1.5, Calcium 8.1, Magnesium 1.8, Total Bilirubin 1.61 H, AST 23, ALT 15, Alkaline Phosphatase 64, Total Creatine Kinase 59, Troponin T High Sens 21 H, NT pro BNP II 4642 H, Total Protein 5.7 L, Albumin 2.9 L, Globulin 2.8, Albumin/Globulin Ratio 1.0 07/16/25 11:05: Urine Color Yellow, Urine Clarity Cloudy, Urine pH 6.0, Ur Specific [place] 1.015, Urine Protein 100 H, Urine Glucose (UA) Normal, Urine Ketones 15 H, Urine Occult Blood 250 H, Urine Nitrite Negative, Urine Bilirubin 1 H, Urine Urobilinogen 4 H, Ur Leukocyte Esterase 500 H, Urine RBC 25-50 SEEN, Urine WBC 10-25 SEEN, Ur Squamous Epith Cells 0-5 SEEN, Urine Bacteria 2+, Urine Mucus 0 SEEN 07/16/25 12:20: Troponin T Hi Sens 2 Hr 20 H Micro: Microbiology 07/16/25 10:55 Mucosa - Nose SARS-CoV-2, Influenza & RSV (PCR) - Final Imaging Radiology Impression Chest X-Ray 07/16/25 10:00 IMPRESSION: No acute cardiopulmonary process. Reading Location: [id number] Assessment & Plan Assessment/Plan (1) UTI (urinary tract infection): PLAN: Plan #Generalized weakness suspect 2/2 UTI - UA suspicious for UTI and patient febrile -White blood cell count within normal limits but does have left shift -Treat with empiric antibiotics while awaiting culture and sensitivity data -PT/OT -Blood pressure has been variable in the ED but blood pressure cuff is on her forearm due to location of IVs so do not necessarily suspect that this is reliable - She did receive fluids in the ED #Hyponatremia - Patient does have elevated proBNP at 4600 but does not appear overloaded -Will check serum osmole's and urine studies -Trend BMP - Will check TSH - Will check echo # Increased cough - Patient reports after laying on the ground overnight next to the dust she has had a little bit of a wet cough and a runny nose which she thinks are likely allergies - COVID/flu/RSV negative - Will check respiratory panel - Schedule cetirizine - Chest x-ray read as no acute process - No wheezes or shortness of breath - On auscultation sounds as though there are some transmitted upper airway sounds as if patient coughs or moves lung sounds improve # 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 # Elevated pro BNP -Unclear significance, suspect patient's weakness is due to her urinary tract infection, does not clinically appear overloaded -Will check echocardiogram -Will hold off on empiric IV Lasix #Tobacco use -Advise cessation -Nicotine replacement available if desired # History of coronary artery disease with stenting -Patient with stenting in 2020 -Has not been compliant with aspirin or statin for the past 6 months -Suspect patient would benefit of resuming these on discharge #DVT ppx: Lovenox subcu Barbie Cross MD Charges/Coding Visit Charges Inpatient E&M: 71192 Init Hosp L2
--- OUTSIDE RECORDS SUMMARY | 2025-07-16 13:54 | XMS RPT_ITS | CCD ---
Author Organization [facility] Care Team Providers Care Radio Frequency Technician Name Role Phone Unavailable Primary Care Provider [...] Unavailable Primary Care Provider Unavailabl e Mikel WASTE SALVAGER.CLASSIFICATION OFFICER, Hilda Unavailable Elodia WASTE SALVAGER.CLASSIFICATION OFFICER, India A Unavailable Darvin Grady MD Unavailable David Fink MD Primary Care Provider Dr. David Fink MD Primary Care Provider Dr. Isaiah Villanueva DO Attending Provider Dr. Isaiah Villanueva DO Emergency Provider Dr. Imani Persaud MD Attending Provider Nabil Lind Referring Provider Dr. Imani Persaud MD Referring Provider Areli WASTE SALVAGER - CLASSIFICATION OFFICER, Ashok Danny Unavailable JUANA LINTON Referring Unavailable [...] Manuel VALDEZ, Dr. Venegas Referring Provider [phone] Jose Manuel VALDEZ, Dr. Venegas Other Provider Aleks VALDEZ, David Primary Care Provider Cori WHEELER [facility], Imani S Unavailable Shannan Kearney RN Unavailable Unavailable Shayna COMMISSION ASSOCIATE-C, Delmis Attending Provider Dr. Imani Persaud MD Referring Provider [facility] COMMISSION ASSOCIATE-Keron Naylor Attending Provider Dr. Girish Mcgarry DO Emergency Provider Dr. Girish Mcgarry DO Attending Provider CHRISTOPHER CUNNINGHAM Attending Unavailable ALEKS, DAVID Primary Care Unavailable IMANI PERSAUD S Referring Unavailable Dr. David Fink MD Primary Care Provider Dr. David Fink MD Primary Care Provider Dr. Imani Persaud MD Attending Provider Dr. Imani Persaud MD Referring Provider Shayna COMMISSION ASSOCIATE-C, Delmis Referring Provider Dr. Richi Moore MD Attending Provider Dr. David Fink MD Primary Care Provider Dr. David Fink MD Referring Provider Dr. Imani Persaud MD Attending Provider Lepanto, David Referring Unavailable Isckarus, Mansour Attending Unavailable [facility] Primary Care Unavailable Shayna COMMISSION ASSOCIATE, Delmis Attending Unavailable Lepanto, David Referring Unavailable [place], [facility] Primary Care Unavailable Shayna COMMISSION ASSOCIATE, Delmis Attending Unavailable Lepanto, David Referring Unavailable [place], [facility] Primary Care Unavailable Roof COMMISSION ASSOCIATE, Keron King Attending Unavailable Lepanto, David Referring Unavailable [place], [facility] Primary Care Unavailable Isckarus, Imani Attending Unavailable Isckarus, Mansour Referring Unavailable [place], [facility] Primary Care Unavailable Isckarus, Jenniferour Attending Unavailable [facility] Primary Care Unavailable Isckarus, Mansour Referring Unavailable Girish Mcgarry Attending Unavailable [facility] Primary Care Unavailable CalabrettaTheo Attending Unavailable [facility] Primary Care Unavailable Lepanto, David Referring Unavailable Calabretta, Theo Referring Unavailable Calabretta, Theo Attending Unavailable CaseabrettaTheo Consulting Unavailable [facility] Primary Care Unavailable Lepanto, David Referring Unavailable Isckarus, Jenniferour Attending Unavailable [facility] Primary Care Unavailable Lepanto, David Referring Unavailable Isckarus, Mansour Attending Unavailable [facility] Primary Care Unavailable Isckarus, Imani Attending Unavailable AslaniNabil fierro Referring Unavailable [facility] Primary Care Unavailable Shayna COMMISSION ASSOCIATE, Delmis Attending Unavailable [facility] Primary Care Unavailable Lepanto, David Referring Unavailable Isckarus, Mansour Attending Unavailable [place], [facility] Primary Care Unavailable [place]ep[place], David Referring Unavailable Isaiah Villanueva Attending Unavailable [facility] Primary Care Unavailable Isckarus, Mansour Attending Unavailable [facility] Primary Care Unavailable Isckarus, Mansour Referring Unavailable Shayna COMMISSION ASSOCIATE, Delmis Referring Unavailable Shayna COMMISSION ASSOCIATE, Delmis Attending Unavailable [facility] Primary Care Unavailable Isckarus, Mansour Attending Unavailable [facility] Primary Care Unavailable Isckarus, Mansour Referring Unavailable Isckarus, Mansour Attending Unavailable [facility] Primary Care Unavailable Lepanto, David Referring Unavailable Girish Mcgarry Attending Unavailable [place], [facility] Primary Care Unavailable CalabrettaTheo Referring Unavailable CalabrettaTheo Attending Unavailable [facility] Primary Care Unavailable Shayna COMMISSION ASSOCIATE, Delmis Attending Unavailable [facility] Primary Care Unavailable Lepanto, David Referring Unavailable Delmis Corral NP Attending Unavailable [place]ep[place], David Primary Care Unavailable [facility] Referring Unavailable Richi Moore Attending Unavailable Lepanto, David Primary Care Unavailable [place]ep[place], David Referring Unavailable Imani Persaud Attending Unavailable [place]ep[place], David Primary Care Unavailable [place]ep[place], David Referring Unavailable Shayna COMMISSION ASSOCIATE, Delmis Attending Unavailable Lepanto, David Primary Care Unavailable Lepanto, David Referring Unavailable Medications Current Medications Medication [...] not administer if patient has taken tylenol [id number] 200 actuat albuterol 0.09 mg/actuat metered dose [...] on above: Take 1 capsule by mo [facility] twice daily for 7 days. famotidine 20 mg oral tablet (20 sources) Histamine-2 Receptor Antagonist Start: 01-27-20 End: 01-28-20 take 1 tablet by mouth twice daily Famotidine (Pepcid) 20 mg tablet Active 20 mg PO TWICE A DAY November 29, 2023 1:00am Comment on above: [facility] flucon[facility] 150 mg oral tablet [...] above: Take by mouth. With iron nystatin [id number] unt/ml topical cream (5 sources) Polyene Antifungal Start: 02-14-2025 End: 02-14-2026 nystatin [id number] UNIT/GM Cream Apply topically Twice daily. 02/14/2025 [...] Other acute postprocedural pain polyethylene glycol 3350 675804 mg / potassium chloride 2980 mg / sodium bicarbonate 6720 mg / sodium chloride 5840 mg / sodium sulfate 46439 mg powder for oral solution (1 source) [...] Start: 02-16-2023 take 2 tablets by mo [facility] once daily predniSONE (DELTASONE) 20 mg tablet [...] with food. Take 2 tablets by mo [facility] once daily. prochlorperazine 10 mg [...] 1:00am Start: 01-26-2023 take 0.5 tablet by [facility] once daily, then take 1 tablet by [...] once a day Take 1 tablet by [facility] once daily. simethicone 80 mg chewable [...] disintegrating tablet 4 mg polyethylene glycol 3350 03443 mg powder for oral solution (2 sources) [...] Auto (Unsp spec) [#/Vol] 0.96 10*3/uL 0.83-4.51 [facility] Absolute neutrophil countOrd ered By: Imani Persaud on 07-12-2025 Neutrophils (Bld) [#/Vol] 2.4 10*3/uL 2.0-7.7 [facility] Anion gap in Serum or Plasma Ordered By: Imani Persaud on 07-12-2025 Anion gap [Moles/Vol] 10 mmol/L 5-15 [facility] Automated lymphocyte count a s percentage of total leukocytesOrdered By: Imani Persaud on 07-12-2025 Lymphocytes/100 WBC Auto (Unsp spec) 23.2 % 19-41 [facility] BUN/creatinine ratioOrdered By: Imani Persaud on 07-12-2025 Urea nitrogen/Creatinine [Mass ratio] 27.5 mg/mg High 10-20 [facility] Basophil percentageOrdered B y: Imani Persaud on 07-12-2025 Basophils/100 WBC (Bld) 2.4 % High 0-1 [facility] Bilirubin, totalOrdered By: Imani Persaud on 07-12-2025 Bilirubin [Mass/Vol] 0.34 mg/dL 0.00-1.30 [facility] CBC W/Diff, Automatedon 06-16 Anisocytosis Ql (Bld) 1+ Normal [facility] Comment on above: Performed By: #### L 501.5200, L500.4050, L100.0100 ####[facility] [address] [place], [address] PLT EST ADEQUATE Normal ADEQ [facility] Comment on above: Performed By: #### L 501.5200, L500.4050, L100.0100 ####[facility] [address] [place], [address] Carbon dioxide, total [Moles /volume] in Central venous bloodOrdered By: Imani Persaud on 07-12-2025 CO2 [Moles/Vol] 19.6 mmol/L Low 21.0-32.0 [facility] Chloride assayOrdered By: Jonatan Persaud on 07-12-2025 Chloride [Moles/Vol] 106 mmol/L 98-108 [facility] Comprehensive Metabolic Prof ilon 07-12-2025 Albumin [Mass/Vol] 3.3 g/dL Low 3.5-5.0 [facility] Comment on above: Performed By: #### L 501.5200, L500.4050, L100.0100 ####[facility] [address] [place], [address] Albumin/Globulin [Mass ratio] 1.2 {ratio} Normal 0.9-2.4 [facility] Comment on above: Performed By: #### L 501.5200, L500.4050, L100.0100 ####[facility] [address] [place], [address] ALK PHOS 83 U/L Normal 35-104 [facility] Comment on above: Performed By: #### L 501.5200, L500.4050, L100.0100 ####[facility] [address] [place], [address] ALT [Catalytic activity/Vol] 15 U/L Normal <=34 [facility] Comment on above: Performed By: #### L 501.5200, L500.4050, L100.0100 ####[facility] [address] [place], [address] AST [Catalytic activity/Vol] 24 U/L Normal <=31 [facility] Comment on above: Performed By: #### L 501.5200, L500.4050, L100.0100 ####[facility] [address] [place], [address] Bilirubin [Mass/Vol] 0.34 mg/dL Normal 0.00-1.30 [facility] Comment on above: Performed By: #### L 501.5200, L500.4050, L100.0100 ####[facility] [address] [place], [address] BUN/CRE 27.5 RATIO High 10-20 [facility] Comment on above: Performed By: #### L 501.5200, L500.4050, L100.0100 ####[facility] [address] [place], [address] Calcium [Mass/Vol] 8.6 mg/dL Normal 7.6-11.0 [facility] Comment on above: Performed By: #### L 501.5200, L500.4050, L100.0100 ####[facility] [address] [place], [address] Chloride [Moles/Vol] 106 mmol/L Normal 98-108 [facility] Comment on above: Performed By: #### L 501.5200, L500.4050, L100.0100 ####[facility] [address] [place], [address] CO2 [Moles/Vol] 19.6 mmol/L Low 21.0-32.0 [facility] Comment on above: Performed By: #### L 501.5200, L500.4050, L100.0100 ####[facility] [address] [place], [address] Creatinine [Mass/Vol] 0.54 mg/dL Low 0.70-1.20 [facility] Comment on above: Performed By: #### L 501.5200, L500.4050, L100.0100 ####[facility] [address] [place], [address] ECRCL 142.62 ml/min Normal 50-250 [facility] Comment on above: Performed By: #### L 501.5200, L500.4050, L100.0100 ####[facility] [address] [place], [address] GAP 10 Normal 5-15 [facility] Comment on above: Performed By: #### L 501.5200, L500.4050, L100.0100 ####[facility] [address] [place], [address] GFR/1.73 sq M.predicted among non-blacks MDRD (S/P/Bld) [Vol rate/Area] 109 mL/min/{1.73_m2} Normal >60 [facility] Comment on above: Result Comment: mL/m in/1.73m2 CKD-EPI Creatinine Equation (2020) Performed By: #### L 501.5200, L500.4050, L100.0100 ####[facility] [address] [place], [address] Globulin (S) [Mass/Vol] 2.8 g/dL Normal 2.2-4.2 [facility] Comment on above: Performed By: #### L 501.5200, L500.4050, L100.0100 ####[facility] [address] [place], [address] Glucose [Mass/Vol] 114 mg/dL High 70-99 [facility] Comment on above: Performed By: #### L 501.5200, L500.4050, L100.0100 ####[facility] [address] [place], [address] Potassium [Moles/Vol] 4.2 mmol/L Normal 3.3-5.1 [facility] Comment on above: Performed By: #### L 501.5200, L500.4050, L100.0100 ####[facility] [address] [place], [address] Sodium [Moles/Vol] 136 mmol/L Normal 133-145 [facility] Comment on above: Performed By: #### L 501.5200, L500.4050, L100.0100 ####[facility] [address] [place], [address] T PROT 6.1 g/dL Normal 5.9-8.4 [facility] Comment on above: Performed By: #### L 501.5200, L500.4050, L100.0100 ####[facility] [address] [place], [address] Urea nitrogen [Mass/Vol] 15 mg/dL Normal 4-19 [facility] Comment on above: Performed By: #### L 501.5200, L500.4050, L100.0100 ####[facility] [address] [place], [address] Eosinophil percentageOrdered By: Imani Persaud on 07-12-2025 Eosinophils/100 WBC (Bld) 9.4 % High 0-5 [facility] Erythrocyte distribution wid th ratioOrdered By: [facility] Pers[facility] on 07-12-2025 Erythrocyte distribution width (RBC) [Ratio] 17.5 % High 11.6-14.6 [facility] Erythrocyte distribution wid th standard deviationOrdered By: [facility] Persaud on 07-12-2025 Erythrocyte distribution width (RBC) [Ratio] 65.5 fl High 35.1-43.9 [facility] Glomerular filtration rate ( GFR) estimation/1.73 sq m using serum, plasma, or whole bOrdered By: Imani Persaud on 07-12-2025 GFR/1.73 sq M.predicted among non-blacks MDRD (S/P/Bld) [Vol rate/Area] 109 mL/min/{1.73_m2} >60 [facility] Comment on above: mL/min/1.73m2 CKD-EP I Creatinine Equation (2020) Hematocrit Auto (Bld) [Volum e fraction]Ordered By: Imani Persaud on 07-12-2025 Hematocrit (Bld) [Volume fraction] 36.5 % Low 37-47 [facility] Hemoglobin measurementOrdere d By: Imani Persaud on 07-12-2025 Hemoglobin (Bld) [Mass/Vol] 11.6 g/dL Low 12.0-15.0 [facility] Immature granulocytes/100 WB C Auto (Bld)Ordered By: Imani Persaud on 07-12-2025 Immature granulocytes/100 WBC (Bld) 0.500 % 0.0-0.9 [facility] Comment on above: IG% - Immature Granu locytes (promyelocytes, myelocytes and metamyelocytes) > 1% indicates that a LEFT SHIFT is Present. Laboratory - Chemistry and C hemistry - challengeOrdered By: Imani Persaud on 07-12-2025 AST [Catalytic activity/Vol] 24 U/L <32 [facility] Laboratory - Hematology and Cell countsOrdered By: Imani Persaud on 07-12-2025 Anisocytosis Ql (Bld) 1+ [facility] MCV (mean corpuscular volume ) determinationOrdered By: [facility] Persaud on 07-12-2025 MCV (RBC) [Entitic vol] 100.0 fL High 81-99 [facility] Magnesiumon 07-12-2025 Magnesium [Mass/Vol] 2.1 mg/dL Normal 1.5-2.2 [facility] Comment on above: Performed By: #### L 501.5200, L500.4050, L100.0100 ####[facility] [address] [place], [address] Magnesium measurement (mass/ volume)Ordered By: Imani Persaud on 07-12-2025 Magnesium (Unsp spec) [Mass/Vol] 2.1 mg/dL 1.5-2.2 [facility] Mean corpuscular hemoglobin (MCH) determinationOrdered By: Imani Persaud on 07-12-2025 MCH (RBC) [Entitic mass] 31.8 pg 27.0-32.0 [facility] Mean corpuscular hemoglobin concentration (MCHC) determinationOrdered By: Imani Persaud on 07-12-2025 MCHC (RBC) [Mass/Vol] 31.8 g/dL Low 32-36 [facility] Mean platelet volume determi nationOrdered By: Imani Persaud on 07-12-2025 Platelet mean volume (Bld) [Entitic vol] 9.9 fL 6.2-12.0 [facility] Monocyte percentageOrdered B y: Imani Persaud on 08-28-2025 Monocytes/100 WBC (Bld) 7.7 % 0-10 [facility] Neutrophil percentageOrdered By: Imani Persaud on 07-12-2025 Neutrophils/100 WBC (Bld) 56.8 % 47-70 [facility] Nucleated red blood cell per centageOrdered By: Imani Persaud on 07-12-2025 Nucleated RBC/100 WBC (Bld) [Ratio] 0 % 0-5 [facility] Oncology Visit Reporton 06-16 Oncology Visit Report Normal [facility] Phosphoruson 07-12-2025 Phosphate [Mass/Vol] 3.1 mg/dL Normal 2.7-4.5 [facility] Comment on above: Performed By: #### L 501.2300 ####[facility] [address] [place], [address] Platelet countOrdered By: Jonatan Persaud on 07-12-2025 Platelets (Bld) [#/Vol] 188 10*3/uL 150-450 [facility] Platelet estimateOrdered By: Imani Persaud on 07-12-2025 Platelets LM Ql (Bld) ADEQUATE ADEQ [facility] Potassium measurement (mass/ volume)Ordered By: Imani Presaud on 07-12-2025 Potassium (Unsp spec) [Mass/Vol] 4.2 mmol/L 3.3-5.1 [facility] RBC Auto (Bld) [#/Vol]Ordere d By: Imani Persaud on 07-12-2025 RBC (Bld) [#/Vol] 3.65 10*6/uL Low 4.2-5.4 [facility] Serum creatinine measurement (mass/volume)Ordered By: Imani Persaud on 07-12-2025 Creatinine [Mass/Vol] 0.54 mg/dL Low 0.70-1.20 [facility] Serum globulin measurementOr dered By: Imani Persaud on 07-12-2025 Globulin (S) [Mass/Vol] 2.8 g/dL 2.2-4.2 [facility] Serum glucose measurement (m ass/volume)Ordered By: Imani Persaud on 07-12-2025 Glucose [Mass/Vol] 114 mg/dL High 70-99 [facility] Serum or plasma alanine del rio otransferase (ALT) measurementOrdered By: Imani Persaud on 07-12-2025 ALT [Catalytic activity/Vol] 15 U/L <35 [facility] Serum or plasma albumin cass urement (mass/volume)Ordered By: Imani Persaud on 07-12-2025 Albumin [Mass/Vol] 3.3 g/dL Low 3.5-5.0 [facility] Serum or plasma albumin/glob ulin mass ratioOrdered By: Imani Persaud on 07-12-2025 Albumin/Globulin [Mass ratio] 1.2 {ratio} 0.9-2.4 [facility] Serum or plasma alkaline tre sphatase measurementOrdered By: Imani Persaud on 07-12-2025 ALP [Catalytic activity/Vol] 83 U/L 35-104 [facility] Serum or plasma calcium cass urement (mass/volume)Ordered By: Imani Persaud on 07-12-2025 Calcium [Mass/Vol] 8.6 mg/dL 7.6-11.0 [facility] Serum or plasma urea nitroge n measurement (mass/volume)Ordered By: Imani Persaud on 07-12-2025 Urea nitrogen [Mass/Vol] 15 mg/dL 4-19 [facility] Sodium levelOrdered By: Jennifer Persaud on 07-12-2025 Sodium [Moles/Vol] 136 mmol/L 133-145 [facility] Total proteinOrdered By: Lonnie Persaud on 07-12-2025 Protein [Mass/Vol] 6.1 g/dL 5.9-8.4 [facility] White blood cell (WBC) count Ordered By: Imani Persaud on 07-12-2025 WBC (Bld) [#/Vol] 4.1 10*3/uL Low 4.4-11.0 [facility] Absolute lymphocyte countOrd ered By: Richi Moore on 06-28-2025 Lymphocytes Auto (Unsp spec) [#/Vol] 1.09 10*3/uL 0.83-4.51 [facility] Absolute neutrophil countOrd ered By: Richi Moore on 06-28-2025 Neutrophils (Bld) [#/Vol] 3.5 10*3/uL 2.0-7.7 [facility] Anion gap in Serum or Plasma Ordered By: Richi Oscar on 06-28-2025 Anion gap [Moles/Vol] 12 mmol/L - [facility] Automated lymphocyte count a s percentage of total leukocytesOrdered By: Richi Moore on 06-28-2025 Lymphocytes/100 WBC Auto (Unsp spec) 21.2 % - [facility] BUN/creatinine ratioOrdered By: Richi Oscar on 06-28-2025 Urea nitrogen/Creatinine [Mass ratio] 13.6 mg/mg 10- [facility] Basophil percentageOrdered B y: Richi Moore on 06-28-2025 Basophils/100 WBC (Bld) 0.8 % 0- [facility] Bilirubin, totalOrdered By: Richi Moore on 06-28-2025 Bilirubin [Mass/Vol] 0.86 mg/dL 0.00-1.30 [facility] Blood manual differential co mment interpretation (narrative result)Ordered By: Richi Moore on 06-28-2025 Manual differential comment Bassam (Bld) [Interp] SCANNED [facility] CBC W/Diff, Automatedon 06-15 Anisocytosis Ql (Bld) 2+ Normal [facility] Comment on above: Performed By: #### L 501.5200, L100.0100, L500.4050 ####[facility] [address] [place], [place], [address] SMEAR COMMENT SCANNED Normal [facility] Comment on above: Performed By: #### L 501.5200, L100.0100, L500.4050 ####[facility] [address] [place], [place], [address] Carbon dioxide, total [Moles /volume] in Central venous bloodOrdered By: Richi Moore on 06-28-2025 CO2 [Moles/Vol] 22.2 mmol/L 21.0-32.0 [facility] Chloride assayOrdered By: Yuridia Moore on 08-14-2025 Chloride [Moles/Vol] 104 mmol/L 98-108 [facility] Comprehensive Metabolic Prof ilon 06-28-2025 Albumin [Mass/Vol] 3.4 g/dL Low 3.5-5.0 [facility] Comment on above: Performed By: #### L 501.5200, L100.0100, L500.4050 ####[facility] [address] [place], [address] Albumin/Globulin [Mass ratio] 1.2 {ratio} Normal 0.9-2.4 [facility] Comment on above: Performed By: #### L 501.5200, L100.0100, L500.4050 ####[facility] [address] [place], [address] ALK PHOS 92 U/L Normal 35-104 [facility] Comment on above: Performed By: #### L 501.5200, L100.0100, L500.4050 ####[facility] [address] [place], [address] ALT [Catalytic activity/Vol] 21 U/L Normal <=34 [facility] Comment on above: Performed By: #### L 501.5200, L100.0100, L500.4050 ####[facility] [address] [place], [address] AST [Catalytic activity/Vol] 35 U/L High <=31 [facility] Comment on above: Performed By: #### L 501.5200, L100.0100, L500.4050 ####[facility] [address] [place], [address] Bilirubin [Mass/Vol] 0.86 mg/dL Normal 0.00-1.30 [facility] Comment on above: Performed By: #### L 501.5200, L100.0100, L500.4050 ####[facility] [address] [place], [address] BUN/CRE 13.6 RATIO Normal 10-20 [facility] Comment on above: Performed By: #### L 501.5200, L100.0100, L500.4050 ####[facility] [address] [place], [address] Calcium [Mass/Vol] 8.7 mg/dL Normal 7.6-11.0 [facility] Comment on above: Performed By: #### L 501.5200, L100.0100, L500.4050 ####[facility] [address] [place], [address] Chloride [Moles/Vol] 104 mmol/L Normal 98-108 [facility] Comment on above: Performed By: #### L 501.5200, L100.0100, L500.4050 ####[facility] [address] [place], [address] CO2 [Moles/Vol] 22.2 mmol/L Normal 21.0-32.0 [facility] Comment on above: Performed By: #### L 501.5200, L100.0100, L500.4050 ####[facility] [address] [place], [address] Creatinine [Mass/Vol] 0.62 mg/dL Low 0.70-1.20 [facility] Comment on above: Performed By: #### L 501.5200, L100.0100, L500.4050 ####[facility] [address] [place], [address] ECRCL 123.96 ml/min Normal 50-250 [facility] Comment on above: Performed By: #### L 501.5200, L100.0100, L500.4050 ####[facility] [address] [place], [address] GAP 12 Normal 5-15 [facility] Comment on above: Performed By: #### L 501.5200, L100.0100, L500.4050 ####[facility] [address] [place], [address] GFR/1.73 sq M.predicted among non-blacks MDRD (S/P/Bld) [Vol rate/Area] 106 mL/min/{1.73_m2} Normal >60 [facility] Comment on above: Result Comment: mL/m in/1.73m2 CKD-EPI Creatinine Equation (2020) Performed By: #### L 501.5200, L100.0100, L500.4050 ####[facility] [address] [place], [address] Globulin (S) [Mass/Vol] 2.9 g/dL Normal 2.2-4.2 [facility] Comment on above: Performed By: #### L 501.5200, L100.0100, L500.4050 ####[facility] [address] [place], [address] Glucose [Mass/Vol] 128 mg/dL High 70-99 [facility] Comment on above: Performed By: #### L 501.5200, L100.0100, L500.4050 ####[facility] [address] [place], [address] Potassium [Moles/Vol] 3.8 mmol/L Normal 3.3-5.1 [facility] Comment on above: Performed By: #### L 501.5200, L100.0100, L500.4050 ####[facility] [address] [place], [address] Sodium [Moles/Vol] 138 mmol/L Normal 133-145 [facility] Comment on above: Performed By: #### L 501.5200, L100.0100, L500.4050 ####[facility] [address] [place], [address] T PROT 6.3 g/dL Normal 5.9-8.4 [facility] Comment on above: Performed By: #### L 501.5200, L100.0100, L500.4050 ####[facility] [address] [place], [address] Urea nitrogen [Mass/Vol] 8 mg/dL Normal 4-19 [facility] Comment on above: Performed By: #### L 501.5200, L100.0100, L500.4050 ####[facility] [address] [place], [address] Eosinophil percentageOrdered By: Richi Moore on 06-28-2025 Eosinophils/100 WBC (Bld) 1.0 % 0-5 [facility] Erythrocyte distribution wid th ratioOrdered By: Richi Moore on 06-28-2025 Erythrocyte distribution width (RBC) [Ratio] 23.6 % High 11.6-14.6 [facility] Erythrocyte distribution wid th standard deviationOrdered By: Richi Moore on 06-28-2025 Erythrocyte distribution width (RBC) [Ratio] 85.0 fl High 35.1-43.9 [facility] Glomerular filtration rate ( GFR) estimation/1.73 sq m using serum, plasma, or whole bOrdered By: Richi Moore on 06-28-2025 GFR/1.73 sq M.predicted among non-blacks MDRD (S/P/Bld) [Vol rate/Area] 106 mL/min/{1.73_m2} >60 [facility] Comment on above: mL/min/1.73m2 CKD-EP I Creatinine Equation (2020) Hematocrit Auto (Bld) [Volum e fraction]Ordered By: Richi Moore on 06-28-2025 Hematocrit (Bld) [Volume fraction] 33.8 % Low 37-47 [facility] Hemoglobin measurementOrdere d By: Richi Moore on 06-28-2025 Hemoglobin (Bld) [Mass/Vol] 10.8 g/dL Low 12.0-15.0 [facility] Immature granulocytes/100 WB C Auto (Bld)Ordered By: Richi Moore on 06-28-2025 Immature granulocytes/100 WBC (Bld) 1.600 % High 0.0-0.9 [facility] Comment on above: IG% - Immature Granu locytes (promyelocytes, myelocytes and metamyelocytes) > 1% indicates that a LEFT SHIFT is Present. Laboratory - Chemistry and C hemistry - challengeOrdered By: Richi [facility] on 06-28-2025 AST [Catalytic activity/Vol] 35 U/L High <32 [facility] Laboratory - Hematology and Cell countsOrdered By: Richi Jaramillo on 06-28-2025 Anisocytosis Ql (Bld) 2+ [facility] MCV (mean corpuscular volume ) determinationOrdered By: Richi Moore on 06-28-2025 MCV (RBC) [Entitic vol] 100.0 fL High 81-99 [facility] Magnesiumon 06-28-2025 Magnesium [Mass/Vol] 2.4 mg/dL High 1.5-2.2 [facility] Comment on above: Performed By: #### L 501.5200, L100.0100, L500.4050 ####[facility] [address] [place], [place], [address] Magnesium measurement (mass/ volume)Ordered By: Richi Moore on 06-28-2025 Magnesium (Unsp spec) [Mass/Vol] 2.4 mg/dL High 1.5-2.2 [facility] Mean corpuscular hemoglobin (MCH) determinationOrdered By: Richi Moore on 06-28-2025 MCH (RBC) [Entitic mass] 32.0 pg 27.0-32.0 [facility] Mean corpuscular hemoglobin concentration (MCHC) determinationOrdered By: Richi [facility] on 06-28-2025 MCHC (RBC) [Mass/Vol] 32.0 g/dL 32-36 [facility] Mean platelet volume determi nationOrdered By: Richi Moore on 06-28-2025 Platelet mean volume (Bld) [Entitic vol] 10.6 fL 6.2-12.0 [facility] Monocyte percentageOrdered B y: Richi Moore on 06-28-2025 Monocytes/100 WBC (Bld) 7.6 % 0-10 [facility] Neutrophil percentageOrdered By: Richi Moore on 06-28-2025 Neutrophils/100 WBC (Bld) 67.8 % 47-70 [facility] Nucleated red blood cell per centageOrdered By: Richi Moore on 06-28-2025 Nucleated RBC/100 WBC (Bld) [Ratio] 0.6 % 0-5 [facility] Oncology Visit Reporton 08 Oncology Visit Report Normal [facility] Platelet countOrdered By: Yuridia Moore on 06-28-2025 Platelets (Bld) [#/Vol] 157 10*3/uL 150-450 [facility] Potassium measurement (mass/ volume)Ordered By: Richi Moore on 06-28-2025 Potassium (Unsp spec) [Mass/Vol] 3.8 mmol/L 3.3-5.1 [facility] RBC Auto (Bld) [#/Vol]Ordere d By: Richi Moore on 06-28-2025 RBC (Bld) [#/Vol] 3.38 10*6/uL Low 4.2-5.4 [facility] Serum creatinine measurement (mass/volume)Ordered By: Richi Moore on 06-28-2025 Creatinine [Mass/Vol] 0.62 mg/dL Low 0.70-1.20 [facility] Serum globulin measurementOr dered By: Richi Moore on 06-28-2025 Globulin (S) [Mass/Vol] 2.9 g/dL 2.2-4.2 [facility] Serum glucose measurement (m ass/volume)Ordered By: Richi Moore on 06-28-2025 Glucose [Mass/Vol] 128 mg/dL High 70-99 [facility] Serum or plasma alanine del rio otransferase (ALT) measurementOrdered By: Richi Moore on 06-28-2025 ALT [Catalytic activity/Vol] 21 U/L <35 [facility] Serum or plasma albumin cass urement (mass/volume)Ordered By: Richi Moore on 06-28-2025 Albumin [Mass/Vol] 3.4 g/dL Low 3.5-5.0 [facility] Serum or plasma albumin/glob ulin mass ratioOrdered By: Richi Moore on 06-28-2025 Albumin/Globulin [Mass ratio] 1.2 {ratio} 0.9-2.4 [facility] Serum or plasma alkaline tre sphatase measurementOrdered By: Richi Moore on 06-28-2025 ALP [Catalytic activity/Vol] 92 U/L 35-104 [facility] Serum or plasma calcium cass urement (mass/volume)Ordered By: Richi Moore on 06-28-2025 Calcium [Mass/Vol] 8.7 mg/dL 7.6-11.0 [facility] Serum or plasma urea nitroge n measurement (mass/volume)Ordered By: Richi Moore on 06-28-2025 Urea nitrogen [Mass/Vol] 8 mg/dL 4-19 [facility] Sodium levelOrdered By: Marques Moore on 06-28-2025 Sodium [Moles/Vol] 138 mmol/L 133-145 [facility] Total proteinOrdered By: Brad Moore on 06-28-2025 Protein [Mass/Vol] 6.3 g/dL 5.9-8.4 [facility] White blood cell (WBC) count Ordered By: Richi Moore on 06-28-2025 WBC (Bld) [#/Vol] 5.1 10*3/uL 4.4-11.0 [facility] Absolute lymphocyte countOrd ered By: Richi Moore on 06-14-2025 Lymphocytes Auto (Unsp spec) [#/Vol] 1.14 10*3/uL 0.83-4.51 [facility] Absolute neutrophil countOrd ered By: Richi Moore on 06-14-2025 Neutrophils (Bld) [#/Vol] 2.9 10*3/uL 2.0-7.7 [facility] Anion gap in Serum or Plasma Ordered By: Richi Moore on 06-14-2025 Anion gap [Moles/Vol] 10 mmol/L 5-15 [facility] Automated lymphocyte count a s percentage of total leukocytesOrdered By: Richi Moore on 06-14-2025 Lymphocytes/100 WBC Auto (Unsp spec) 23.5 % 19-41 [facility] BUN/creatinine ratioOrdered By: Richi Mooer on 06-14-2025 Urea nitrogen/Creatinine [Mass ratio] 10.8 mg/mg 10-20 [facility] Basic Metabolic Profile (BMP )on 06-14-2025 BUN Normal 4-19 [facility] Comment on above: Result Comment: DUPL ICATE Performed By: #### L 500.2500 ####[facility] [address] [place], [address] BUN/CRE Normal 10-20 [facility] Comment on above: Result Comment: DUPL ICATE Performed By: #### L 500.2500 ####[facility] [address] [place], [address] Calcium Normal 7.6-11.0 [facility] Comment on above: Result Comment: DUPL ICATE Performed By: #### L 500.2500 ####[facility] [address] [place], [address] CL Normal 98-108 [facility] Comment on above: Result Comment: DUPL ICATE Performed By: #### L 500.2500 ####[facility] [address] [place], [address] CO2 Normal 21.0-32.0 [facility] Comment on above: Result Comment: DUPL ICATE Performed By: #### L 500.2500 ####[facility] [address] [place], [address] CREAT,SERUM Normal 0.70-1.20 [facility] Comment on above: Result Comment: DUPL ICATE Performed By: #### L 500.2500 ####[facility] [address] [place], [address] eGFR Normal >60 [facility] Comment on above: Result Comment: DUPL ICATE Performed By: #### L 500.2500 ####[facility] [address] [place], [address] GAP Normal 5-15 [facility] Comment on above: Result Comment: DUPL ICATE Performed By: #### L 500.2500 ####[facility] [address] [place], [address] GLU Normal 70-99 [facility] Comment on above: Result Comment: DUPL ICATE Performed By: #### L 500.2500 ####[facility] [address] [place], [address] Potassium Normal 3.3-5.1 [facility] Comment on above: Result Comment: DUPL ICATE Performed By: #### L 500.2500 ####[facility] [address] [place], [address] Basic Metabolic Profile (BMP) Normal 133-145 [facility] Comment on above: Result Comment: DUPL ICATE Performed By: #### L 500.2500 ####[facility] [address] [place], [address] Basophil percentageOrdered B y: Richi Moore on 06-14-2025 Basophils/100 WBC (Bld) 1.2 % High 0-1 [facility] Bilirubin, totalOrdered By: Richi Moore on 06-14-2025 Bilirubin [Mass/Vol] 0.60 mg/dL 0.00-1.30 [facility] Blood polychromasia detectio n by light microscopyOrdered By: Richi Moore on 06-14-2025 Polychromasia LM Ql (Bld) 2+ [facility] CBC W/Diff, Automatedon 05-17 Anisocytosis Ql (Bld) 2+ Normal [facility] Comment on above: Performed By: #### L 500.4050, L100.0100, L501.5200 ####[facility] [address] [place], [address] MACROCYTOSIS 1+ Normal [facility] Comment on above: Performed By: #### L 500.4050, L100.0100, L501.5200 ####[facility] [address] [place], [address] PLT EST A Normal ADEQ [facility] Comment on above: Performed By: #### L 500.4050, L100.0100, L501.5200 ####[facility] [address] [place], [address] POLYCHROMASIA 2+ Normal [facility] Comment on above: Performed By: #### L 500.4050, L100.0100, L501.5200 ####[facility] [address] [place], [address] Carbon dioxide, total [Moles /volume] in Central venous bloodOrdered By: Richi Moore on 06-14-2025 CO2 [Moles/Vol] 21.7 mmol/L 21.0-32.0 [facility] Chloride assayOrdered By: Yuridia Moore on 06-14-2025 Chloride [Moles/Vol] 106 mmol/L 98-108 [facility] Comprehensive Metabolic Prof ilon 06-14-2025 Albumin [Mass/Vol] 3.5 g/dL Normal 3.5-5.0 [facility] Comment on above: Performed By: #### L 500.4050, L100.0100, L501.5200 ####[facility] [address] [place], [address] Albumin/Globulin [Mass ratio] 1.2 {ratio} Normal 0.9-2.4 [facility] Comment on above: Performed By: #### L 500.4050, L100.0100, L501.5200 ####[facility] [address] [place], [address] ALK PHOS 110 U/L High 35-104 [facility] Comment on above: Performed By: #### L 500.4050, L100.0100, L501.5200 ####[facility] [address] [place], [address] ALT [Catalytic activity/Vol] 33 U/L Normal <=34 [facility] Comment on above: Performed By: #### L 500.4050, L100.0100, L501.5200 ####[facility] [address] [place], [address] AST [Catalytic activity/Vol] 25 U/L Normal <=31 [facility] Comment on above: Performed By: #### L 500.4050, L100.0100, L501.5200 ####[facility] [address] [place], [address] Bilirubin [Mass/Vol] 0.60 mg/dL Normal 0.00-1.30 [facility] Comment on above: Performed By: #### L 500.4050, L100.0100, L501.5200 ####[facility] [address] [place], [address] BUN/CRE 10.8 RATIO Normal 10-20 [facility] Comment on above: Performed By: #### L 500.4050, L100.0100, L501.5200 ####[facility] [address] [place], [address] Calcium [Mass/Vol] 8.9 mg/dL Normal 7.6-11.0 [facility] Comment on above: Performed By: #### L 500.4050, L100.0100, L501.5200 ####[facility] [address] [place], [address] Chloride [Moles/Vol] 106 mmol/L Normal 98-108 [facility] Comment on above: Performed By: #### L 500.4050, L100.0100, L501.5200 ####[facility] [address] [place], [address] CO2 [Moles/Vol] 21.7 mmol/L Normal 21.0-32.0 [facility] Comment on above: Performed By: #### L 500.4050, L100.0100, L501.5200 ####[facility] [address] [place], [address] Creatinine [Mass/Vol] 0.58 mg/dL Low 0.70-1.20 [facility] Comment on above: Performed By: #### L 500.4050, L100.0100, L501.5200 ####[facility] [address] [place], [address] ECRCL 131.47 ml/min Normal 50-250 [facility] Comment on above: Performed By: #### L 500.4050, L100.0100, L501.5200 ####[facility] [address] [place], [address] GAP 10 Normal 5-15 [facility] Comment on above: Performed By: #### L 500.4050, L100.0100, L501.5200 ####[facility] [address] [place], [address] GFR/1.73 sq M.predicted among non-blacks MDRD (S/P/Bld) [Vol rate/Area] 107 mL/min/{1.73_m2} Normal >60 [facility] Comment on above: Result Comment: mL/m in/1.73m2 CKD-EPI Creatinine Equation (2020) Performed By: #### L 500.4050, L100.0100, L501.5200 ####[facility] [address] [place], [address] Globulin (S) [Mass/Vol] 2.9 g/dL Normal 2.2-4.2 [facility] Comment on above: Performed By: #### L 500.4050, L100.0100, L501.5200 ####[facility] [address] [place], [address] Glucose [Mass/Vol] 138 mg/dL High 70-99 [facility] Comment on above: Performed By: #### L 500.4050, L100.0100, L501.5200 ####[facility] [address] [place], [address] Potassium [Moles/Vol] 4.6 mmol/L Normal 3.3-5.1 [facility] Comment on above: Performed By: #### L 500.4050, L100.0100, L501.5200 ####[facility] [address] [place], [address] Sodium [Moles/Vol] 137 mmol/L Normal 133-145 [facility] Comment on above: Performed By: #### L 500.4050, L100.0100, L501.5200 ####[facility] [address] [place], [address] T PROT 6.5 g/dL Normal 5.9-8.4 [facility] Comment on above: Performed By: #### L 500.4050, L100.0100, L501.5200 ####[facility] [address] [place], [address] Urea nitrogen [Mass/Vol] 6 mg/dL Normal 4-19 [facility] Comment on above: Performed By: #### L 500.4050, L100.0100, L501.5200 ####[facility] [address] [place], [address] Eosinophil percentageOrdered By: Richi Moore on 06-14-2025 Eosinophils/100 WBC (Bld) 7.0 % High 0-5 [facility] Erythrocyte distribution wid th ratioOrdered By: Richi Moore on 06-14-2025 Erythrocyte distribution width (RBC) [Ratio] 24.6 % High 11.6-14.6 [facility] Erythrocyte distribution wid th standard deviationOrdered By: Richi Moore on 06-14-2025 Erythrocyte distribution width (RBC) [Ratio] 85.0 fl High 35.1-43.9 [facility] Glomerular filtration rate ( GFR) estimation/1.73 sq m using serum, plasma, or whole bOrdered By: Richi Moore on 06-14-2025 GFR/1.73 sq M.predicted among non-blacks MDRD (S/P/Bld) [Vol rate/Area] 107 mL/min/{1.73_m2} >60 [facility] Comment on above: mL/min/1.73m2 CKD-EP I Creatinine Equation (2020) Hematocrit Auto (Bld) [Volum e fraction]Ordered By: Richi Moore on 06-14-2025 Hematocrit (Bld) [Volume fraction] 32.5 % Low 37-47 [facility] Hemoglobin measurementOrdere d By: Richi Moore on 06-14-2025 Hemoglobin (Bld) [Mass/Vol] 10.2 g/dL Low 12.0-15.0 [facility] Immature granulocytes/100 WB C Auto (Bld)Ordered By: Richi Moore on 06-14-2025 Immature granulocytes/100 WBC (Bld) 0.600 % 0.0-0.9 [facility] Comment on above: IG% - Immature Granu locytes (promyelocytes, myelocytes and metamyelocytes) > 1% indicates that a LEFT SHIFT is Present. Laboratory - Chemistry and C hemistry - challengeOrdered By: Rihci Moore on 06-14-2025 AST [Catalytic activity/Vol] 25 U/L <32 [facility] Laboratory - Hematology and Cell countsOrdered By: Richi Moore on 06-14-2025 Anisocytosis Ql (Bld) 2+ [facility] MCV (mean corpuscular volume ) determinationOrdered By: Richi Jaramillo on 06-14-2025 MCV (RBC) [Entitic vol] 98.2 fL 81-99 [facility] Macrocytes detectionOrdered By: [facility] on 06-14-2025 Macrocytes Ql (Bld) 1+ [facility] Magnesiumon 06-14-2025 Magnesium [Mass/Vol] 2.4 mg/dL High 1.5-2.2 [facility] Comment on above: Performed By: #### L 500.4050, L100.0100, L501.5200 ####[facility] [address] [place], [address] Magnesium measurement (mass/ volume)Ordered By: Richi Moore on 06-14-2025 Magnesium (Unsp spec) [Mass/Vol] 2.4 mg/dL High 1.5-2.2 [facility] Mean corpuscular hemoglobin (MCH) determinationOrdered By: Richi Moore on 06-14-2025 MCH (RBC) [Entitic mass] 30.8 pg 27.0-32.0 [facility] Mean corpuscular hemoglobin concentration (MCHC) determinationOrdered By: Richi Moore on 06-14-2025 MCHC (RBC) [Mass/Vol] 31.4 g/dL Low 32-36 [facility] Mean platelet volume determi nationOrdered By: Richi Moore on 06-14-2025 Platelet mean volume (Bld) [Entitic vol] 10.3 fL 6.2-12.0 [facility] Monocyte percentageOrdered B y: Richi Moore on 06-14-2025 Monocytes/100 WBC (Bld) 7.2 % 0-10 [facility] Neutrophil percentageOrdered By: Richi Moore on 06-14-2025 Neutrophils/100 WBC (Bld) 60.5 % 47-70 [facility] Nucleated red blood cell per centageOrdered By: Richi Moore on 06-14-2025 Nucleated RBC/100 WBC (Bld) [Ratio] 0 % 0-5 [facility] Oncology Visit Reporton 05-17 Oncology Visit Report Normal [facility] Platelet countOrdered By: Yuridia Moore on 06-14-2025 Platelets (Bld) [#/Vol] 189 10*3/uL 150-450 [facility] Platelet estimateOrdered By: Richi Moore on 06-14-2025 Platelets LM Ql (Bld) A ADEQ [facility] Potassium measurement (mass/ volume)Ordered By: Richi Moore on 06-14-2025 Potassium (Unsp spec) [Mass/Vol] 4.6 mmol/L 3.3-5.1 [facility] RBC Auto (Bld) [#/Vol]Ordere d By: Richi Moore on 06-14-2025 RBC (Bld) [#/Vol] 3.31 10*6/uL Low 4.2-5.4 [facility] Serum creatinine measurement (mass/volume)Ordered By: Richi Moore on 06-14-2025 Creatinine [Mass/Vol] 0.58 mg/dL Low 0.70-1.20 [facility] Serum globulin measurementOr dered By: Richi Moore on 06-14-2025 Globulin (S) [Mass/Vol] 2.9 g/dL 2.2-4.2 [facility] Serum glucose measurement (m ass/volume)Ordered By: Richi Moore on 06-14-2025 Glucose [Mass/Vol] 138 mg/dL High 70-99 [facility] Serum or plasma alanine del rio otransferase (ALT) measurementOrdered By: Richi Moore on 06-14-2025 ALT [Catalytic activity/Vol] 33 U/L <35 [facility] Serum or plasma albumin cass urement (mass/volume)Ordered By: Richi Moore on 06-14-2025 Albumin [Mass/Vol] 3.5 g/dL 3.5-5.0 [facility] Serum or plasma albumin/glob ulin mass ratioOrdered By: Richi Moore on 06-14-2025 Albumin/Globulin [Mass ratio] 1.2 {ratio} 0.9-2.4 [facility] Serum or plasma alkaline tre sphatase measurementOrdered By: Richi Moore on 06-14-2025 ALP [Catalytic activity/Vol] 110 U/L High 35-104 [facility] Serum or plasma calcium cass urement (mass/volume)Ordered By: Richi oMore on 06-14-2025 Calcium [Mass/Vol] 8.9 mg/dL 7.6-11.0 [facility] Serum or plasma urea nitroge n measurement (mass/volume)Ordered By: Richi Moore on 06-14-2025 Urea nitrogen [Mass/Vol] 6 mg/dL 4-19 [facility] Sodium levelOrdered By: Marques Moore on 06-14-2025 Sodium [Moles/Vol] 137 mmol/L 133-145 [facility] Total proteinOrdered By: Brad Moore on 06-14-2025 Protein [Mass/Vol] 6.5 g/dL 5.9-8.4 [facility] White blood cell (WBC) count Ordered By: Richi Moore on 06-14-2025 WBC (Bld) [#/Vol] 4.9 10*3/uL 4.4-11.0 [facility] Abdomen Limitedon 06-08-2025 Abdomen Limited Normal [facility] Absolute lymphocyte countOrd ered By: [facility] on 06-07-2025 Lymphocytes Auto (Unsp spec) [#/Vol] 1.17 10*3/uL 0.83-4.51 [facility] Absolute neutrophil countOrd ered By: [facility] on 06-07-2025 Neutrophils (Bld) [#/Vol] 1.8 10*3/uL Low 2.0-7.7 [facility] Anion gap in Serum or Plasma Ordered By: Imani Persaud on 06-07-2025 Anion gap [Moles/Vol] 13 mmol/L 5-15 [facility] Automated lymphocyte count a s percentage of total leukocytesOrdered By: Imani Persaud on 06-07-2025 Lymphocytes/100 WBC Auto (Unsp spec) 35.0 % 19-41 [facility] BUN/creatinine ratioOrdered By: [facility] on 06-07-2025 Urea nitrogen/Creatinine [Mass ratio] 14.8 mg/mg 10-20 [facility] Basophil percentageOrdered B y: Imani Persaud on 06-07-2025 Basophils/100 WBC (Bld) 1.5 % High 0-1 [facility] Bilirubin directOrdered By: Delmis Corral on 06-07-2025 Bilirubin.direct [Mass/Vol] 0.34 mg/dL High 0.00-0.30 [facility] Bilirubin, Directon 06-07-20 25 Bilirubin.direct [Mass/Vol] 0.34 mg/dL High 0.00-0.30 [facility] Comment on above: Order Comment: ADD O N Performed By: #### L 501.9520, L501.4700, L503.0106, L503.6030 ####[facility] [address] [place], [address] Bilirubin, totalOrdered By: Imani Persaud on 06-07-2025 Bilirubin [Mass/Vol] 0.75 mg/dL 0.00-1.30 [facility] CBC W/Diff, Automatedon 05-16 Absolute Lymph 1.17 X10 3/uL Normal 0.83-4.51 [facility] Comment on above: Performed By: #### L 100.0100, L501.5200, L500.4050 ####[facility] [address] [place], [address] Absolute Neut 1.8 X10 3/uL Low 2.0-7.7 [facility] Comment on above: Performed By: #### L 100.0100, L501.5200, L500.4050 ####[facility] [address] [place], [address] Basophils/100 WBC (Bld) 1.5 % High 0-1 [facility] Comment on above: Performed By: #### L 100.0100, L501.5200, L500.4050 ####[facility] [address] [place], [address] Eosinophils/100 WBC (Bld) 0.3 % Normal 0-5 [facility] Comment on above: Performed By: #### L 100.0100, L501.5200, L500.4050 ####[facility] [address] [place], [address] Erythrocyte distribution width (RBC) [Ratio] 19.9 % High 11.6-14.6 [facility] Comment on above: Performed By: #### L 100.0100, L501.5200, L500.4050 ####[facility] [address] [place], [address] Hematocrit (Bld) [Volume fraction] 24.9 % Low 37-47 [facility] Comment on above: Performed By: #### L 100.0100, L501.5200, L500.4050 ####[facility] [address] [place], [address] Hemoglobin (Bld) [Mass/Vol] 8.3 g/dL Low 12.0-15.0 [facility] Comment on above: Performed By: #### L 100.0100, L501.5200, L500.4050 ####[facility] [address] [place], [address] IG% 1.200 High 0.0-0.9 [facility] Comment on above: Result Comment: IG% - Immature Granulocytes (promyelocytes, myelocytes andmetamyelocytes) > 1% indicates that a LEFT SHIFT is Present. Performed By: #### L 100.0100, L501.5200, L500.4050 ####[facility] [address] [place], [address] Lymphocytes/100 WBC (Bld) 35.0 % Normal 19-41 [facility] Comment on above: Performed By: #### L 100.0100, L501.5200, L500.4050 ####[facility] [address] [place], [address] MCH (RBC) [Entitic mass] 29.4 pg Normal 27.0-32.0 [facility] Comment on above: Performed By: #### L 100.0100, L501.5200, L500.4050 ####[facility] [address] [place], [address] MCHC (RBC) [Mass/Vol] 33.3 g/dL Normal 32-36 [facility] Comment on above: Performed By: #### L 100.0100, L501.5200, L500.4050 ####[facility] [address] [place], [address] MCV (RBC) [Entitic vol] 88.3 fL Normal 81-99 [facility] Comment on above: Performed By: #### L 100.0100, L501.5200, L500.4050 ####[facility] [address] [place], [address] Monocytes/100 WBC (Bld) 7.5 % Normal 0-10 [facility] Comment on above: Performed By: #### L 100.0100, L501.5200, L500.4050 ####[facility] [address] [place], [address] Neutrophils/100 WBC (Bld) 54.5 % Normal 47-70 [facility] Comment on above: Performed By: #### L 100.0100, L501.5200, L500.4050 ####[facility] [address] [place], [address] Nucleated RBC (Bld) [#/Vol] 1.2 10*3/uL Normal 0-5 [facility] Comment on above: Performed By: #### L 100.0100, L501.5200, L500.4050 ####[facility] [id number] [place], [address] Platelet mean volume (Bld) [Entitic vol] 10.5 fL Normal 6.2-12.0 [facility] Comment on above: Performed By: #### L 100.0100, L501.5200, L500.4050 ####[facility] [facility] [address] [place], [address] Platelets (Bld) [#/Vol] 154 10*3/uL Normal 150-450 [facility] Comment on above: Performed By: #### L 100.0100, L501.5200, L500.4050 ####[facility] [address] [place], [address] RBC (Bld) [#/Vol] 2.82 10*6/uL Low 4.2-5.4 [facility] Comment on above: Performed By: #### L 100.0100, L501.5200, L500.4050 ####[facility] [address] [place], [address] RDW SD 62.4 fl High 35.1-43.9 [facility] Comment on above: Performed By: #### L 100.0100, L501.5200, L500.4050 ####[facility] [address] [place], [address] WBC (Bld) [#/Vol] 3.3 10*3/uL Low 4.4-11.0 [facility] Comment on above: Performed By: #### L 100.0100, L501.5200, L500.4050 ####[facility] [address] [place], [address] Carbon dioxide, total [Moles /volume] in Central venous bloodOrdered By: Imani Persaud on 06-07-2025 CO2 [Moles/Vol] 18.7 mmol/L Low 21.0-32.0 [facility] Chloride assayOrdered By: Jonatan Persaud on 06-07-2025 Chloride [Moles/Vol] 104 mmol/L 98-108 [facility] Comprehensive Metabolic Prof ilon 06-07-2025 Albumin [Mass/Vol] 3.3 g/dL Low 3.5-5.0 [facility] Comment on above: Performed By: #### L 100.0100, L501.5200, L500.4050 ####[facility] [address] [place], [address] Albumin/Globulin [Mass ratio] 1.1 {ratio} Normal 0.9-2.4 [facility] Comment on above: Performed By: #### L 100.0100, L501.5200, L500.4050 ####[facility] [address] [place], [address] ALK PHOS 92 U/L Normal 35-104 [facility] Comment on above: Performed By: #### L 100.0100, L501.5200, L500.4050 ####[facility] [address] [place], [address] ALT [Catalytic activity/Vol] 81 U/L High <=34 [facility] Comment on above: Performed By: #### L 100.0100, L501.5200, L500.4050 ####[facility] [address] [place], [address] AST [Catalytic activity/Vol] 91 U/L High <=31 [facility] Comment on above: Performed By: #### L 100.0100, L501.5200, L500.4050 ####[facility] [address] [place], [address] Bilirubin [Mass/Vol] 0.75 mg/dL Normal 0.00-1.30 [facility] Comment on above: Performed By: #### L 100.0100, L501.5200, L500.4050 ####[facility] [address] [place], [address] BUN/CRE 14.8 RATIO Normal 10-20 [facility] Comment on above: Performed By: #### L 100.0100, L501.5200, L500.4050 ####[facility] [address] [place], [address] Calcium [Mass/Vol] 9.0 mg/dL Normal 7.6-11.0 [facility] Comment on above: Performed By: #### L 100.0100, L501.5200, L500.4050 ####[facility] [address] [place], [address] Chloride [Moles/Vol] 104 mmol/L Normal 98-108 [facility] Comment on above: Performed By: #### L 100.0100, L501.5200, L500.4050 ####[facility] [address] [place], [address] CO2 [Moles/Vol] 18.7 mmol/L Low 21.0-32.0 [facility] Comment on above: Performed By: #### L 100.0100, L501.5200, L500.4050 ####[facility] [address] [place], [address] Creatinine [Mass/Vol] 0.59 mg/dL Low 0.70-1.20 [facility] Comment on above: Performed By: #### L 100.0100, L501.5200, L500.4050 ####[facility] [address] [place], [address] ECRCL 129.25 ml/min Normal 50-250 [facility] Comment on above: Performed By: #### L 100.0100, L501.5200, L500.4050 ####[facility] [address] [place], [address] GAP 13 Normal 5-15 [facility] Comment on above: Performed By: #### L 100.0100, L501.5200, L500.4050 ####[facility] [address] [place], [address] GFR/1.73 sq M.predicted among non-blacks MDRD (S/P/Bld) [Vol rate/Area] 107 mL/min/{1.73_m2} Normal >60 [facility] Comment on above: Result Comment: mL/m in/1.73m2 CKD-EPI Creatinine Equation (2020) Performed By: #### L 100.0100, L501.5200, L500.4050 ####[facility] [address] [place], [address] Globulin (S) [Mass/Vol] 3.1 g/dL Normal 2.2-4.2 [facility] Comment on above: Performed By: #### L 100.0100, L501.5200, L500.4050 ####[facility] [address] [place], [address] Glucose [Mass/Vol] 130 mg/dL High 70-99 [facility] Comment on above: Performed By: #### L 100.0100, L501.5200, L500.4050 ####[facility] [address] [place], [address] Potassium [Moles/Vol] 3.7 mmol/L Normal 3.3-5.1 [facility] Comment on above: Performed By: #### L 100.0100, L501.5200, L500.4050 ####[facility] [address] [place], [address] Sodium [Moles/Vol] 136 mmol/L Normal 133-145 [facility] Comment on above: Performed By: #### L 100.0100, L501.5200, L500.4050 ####[facility] [address] [place], [address] T PROT 6.5 g/dL Normal 5.9-8.4 [facility] Comment on above: Performed By: #### L 100.0100, L501.5200, L500.4050 ####[facility] [address] [place], [address] Urea nitrogen [Mass/Vol] 9 mg/dL Normal 4-19 [facility] Comment on above: Performed By: #### L 100.0100, L501.5200, L500.4050 ####[facility] [address] [place], [address] Eosinophil percentageOrdered By: Imani Persaud on 06-07-2025 Eosinophils/100 WBC (Bld) 0.3 % 0-5 [facility] Erythrocyte distribution wid th ratioOrdered By: Imani Persaud on 06-07-2025 Erythrocyte distribution width (RBC) [Ratio] 19.9 % High 11.6-14.6 [facility] Erythrocyte distribution wid th standard deviationOrdered By: Imani Persaud on 06-07-2025 Erythrocyte distribution width (RBC) [Ratio] 62.4 fl High 35.1-43.9 [facility] Ferritinon 06-07-2025 Ferritin [Mass/Vol] 590 ng/mL High 22-378 [facility] Comment on above: Performed By: #### L 506.0200, L503.6550 ####[facility] [address] [place], [address] Folate [Mass/volume] in Seru m or PlasmaOrdered By: Delmis Corral on 06-07-2025 Folate [Mass/Vol] 5.13 ng/mL 4.60-34.80 [facility] Comment on above: Hemolysis, Results w ill be affected, Requires Recollection. Folates,Serum (Folic Acid)on 06-07-2025 FOLATES,SERUM 5.13 ng/mL Normal 4.60-34.80 [facility] Comment on above: Order Comment: ADD O NN Result Comment: Hemo lysis, Results will be affected, Requires Recollection. Performed By: #### L 506.0200, L503.6550 ####[facility] [address] [place], [address] Glomerular filtration rate ( GFR) estimation/1.73 sq m using serum, plasma, or whole bOrdered By: Imani Persaud on 06-07-2025 GFR/1.73 sq M.predicted among non-blacks MDRD (S/P/Bld) [Vol rate/Area] 107 mL/min/{1.73_m2} >60 [facility] Comment on above: mL/min/1.73m2 CKD-EP I Creatinine Equation (2020) Hematocrit Auto (Bld) [Volum e fraction]Ordered By: Imani Persaud on 06-07-2025 Hematocrit (Bld) [Volume fraction] 24.9 % Low 37-47 [facility] Hemoglobin measurementOrdere d By: Imani Metzgeralma on 06-07-2025 Hemoglobin (Bld) [Mass/Vol] 8.3 g/dL Low 12.0-15.0 [facility] Immature granulocytes/100 WB C Auto (Bld)Ordered By: Imani Metzgeralma on 06-07-2025 Immature granulocytes/100 WBC (Bld) 1.200 % High 0.0-0.9 [facility] Comment on above: IG% - Immature Granu locytes (promyelocytes, myelocytes and metamyelocytes) > 1% indicates that a LEFT SHIFT is Present. Iron measurement (mass/mass) Ordered By: Delmis Corral on 06-07-2025 Iron (Unsp spec) [Mass/Mass] 49 ug/dL Low 50-170 [facility] Iron+Iron Binding Capacityon 06-07-2025 Iron [Mass/Vol] 49 ug/dL Low 50-170 [facility] Comment on above: Order Comment: ADD O N Performed By: #### L 501.9520, L501.4700, L503.0106, L503.6030 ####[facility] [address] [place], [address] IRON SATURATION 18.0 Normal 13-59 [facility] Comment on above: Order Comment: ADD O N Performed By: #### L 501.9520, L501.4700, L503.0106, L503.6030 ####[facility] [address] [place], [address] TIBC 266 ug/dL Normal 250-450 [facility] Comment on above: Order Comment: ADD O N Performed By: #### L 501.9520, L501.4700, L503.0106, L503.6030 ####[facility] [address] [place], [address] UIBC 217 ug/dL Low 228-428 [facility] Comment on above: Order Comment: ADD O N Performed By: #### L 501.9520, L501.4700, L503.0106, L503.6030 ####[facility] [address] [place], [place], [address] Laboratory - Chemistry and C hemistry - challengeOrdered By: Imani Persaud on 06-07-2025 AST [Catalytic activity/Vol] 91 U/L High <32 [facility] MCV (mean corpuscular volume ) determinationOrdered By: Imani Persaud on 06-07-2025 MCV (RBC) [Entitic vol] 88.3 fL 81-99 [facility] Magnesiumon 06-07-2025 Magnesium [Mass/Vol] 2.2 mg/dL Normal 1.5-2.2 [facility] Comment on above: Performed By: #### L 100.0100, L501.5200, L500.4050 ####[facility] [address] [facility] [place], [place], [address] Magnesium measurement (mass/ volume)Ordered By: Imani Persaud on 06-07-2025 Magnesium (Unsp spec) [Mass/Vol] 2.2 mg/dL 1.5-2.2 [facility] Mean corpuscular hemoglobin (MCH) determinationOrdered By: Imani Persaud on 06-07-2025 MCH (RBC) [Entitic mass] 29.4 pg 27.0-32.0 [facility] Mean corpuscular hemoglobin concentration (MCHC) determinationOrdered By: Imani Persaud on 06-07-2025 MCHC (RBC) [Mass/Vol] 33.3 g/dL 32-36 [facility] Mean platelet volume determi nationOrdered By: Imani Persaud on 06-07-2025 Platelet mean volume (Bld) [Entitic vol] 10.5 fL 6.2-12.0 [facility] Monocyte percentageOrdered B y: Imani Persaud on 06-07-2025 Monocytes/100 WBC (Bld) 7.5 % 0-10 [facility] Neutrophil percentageOrdered By: Imani Persaud on 06-07-2025 Neutrophils/100 WBC (Bld) 54.5 % 47-70 [facility] No Panel InformationOrdered By: Delmis Corral on 06-07-2025 Unsaturated Iron Binding Capacity 217 ug/dL Low 228-428 [facility] Nucleated red blood cell per centageOrdered By: Imani Persaud on 06-07-2025 Nucleated RBC/100 WBC (Bld) [Ratio] 1.2 % 0-5 [facility] Oncology Visit Reporton 07 Oncology Visit Report Normal [facility] Platelet countOrdered By: Jonatan Persaud on 06-07-2025 Platelets (Bld) [#/Vol] 154 10*3/uL 150-450 [facility] Potassium measurement (mass/ volume)Ordered By: Imani Persaud on 06-07-2025 Potassium (Unsp spec) [Mass/Vol] 3.7 mmol/L 3.3-5.1 [facility] RBC Auto (Bld) [#/Vol]Ordere d By: Imani Persaud on 06-07-2025 RBC (Bld) [#/Vol] 2.82 10*6/uL Low 4.2-5.4 [facility] Serum creatinine measurement (mass/volume)Ordered By: Imani Persaud on 06-07-2025 Creatinine [Mass/Vol] 0.59 mg/dL Low 0.70-1.20 [facility] Serum globulin measurementOr dered By: Imani Persaud on 06-07-2025 Globulin (S) [Mass/Vol] 3.1 g/dL 2.2-4.2 [facility] Serum glucose measurement (m ass/volume)Ordered By: Imani Persaud on 06-07-2025 Glucose [Mass/Vol] 130 mg/dL High 70-99 [facility] Serum or plasma alanine del rio otransferase (ALT) measurementOrdered By: Imani Persaud on 06-07-2025 ALT [Catalytic activity/Vol] 81 U/L High <35 [facility] Serum or plasma albumin cass urement (mass/volume)Ordered By: Imani Persaud on 06-07-2025 Albumin [Mass/Vol] 3.3 g/dL Low 3.5-5.0 [facility] Serum or plasma albumin/glob ulin mass ratioOrdered By: Imani Persaud on 06-07-2025 Albumin/Globulin [Mass ratio] 1.1 {ratio} 0.9-2.4 [facility] Serum or plasma alkaline tre sphatase measurementOrdered By: Imani Persaud on 06-07-2025 ALP [Catalytic activity/Vol] 92 U/L 35-104 [facility] Serum or plasma calcium cass urement (mass/volume)Ordered By: Imani Persaud on 06-07-2025 Calcium [Mass/Vol] 9.0 mg/dL 7.6-11.0 [facility] Serum or plasma ferritin roxana surement (mass/volume)Ordered By: Delmis Corral on 06-07-2025 Ferritin [Mass/Vol] 590 ng/mL High 22-378 [facility] Serum or plasma iron saturat ion measurement (mass fraction)Ordered By: Delmis Corral on 06-07-2025 Iron saturation [Mass fraction] 18.0 % 13-59 [facility] Serum or plasma urea nitroge n measurement (mass/volume)Ordered By: Imani Persaud on 06-07-2025 Urea nitrogen [Mass/Vol] 9 mg/dL 4-19 [facility] Sodium levelOrdered By: Jennifer Persaud on 06-07-2025 Sodium [Moles/Vol] 136 mmol/L 133-145 [facility] TSH DL <= 0.005 mIU/L QnOrde red By: Delmis Corral on 06-07-2025 TSH Qn 3.100 uIU/mL 0.300-4.200 [facility] Thyroid Stim Hormone (TSH)on 06-07-2025 TSH 3.100 uIU/mL Normal 0.300-4.200 [facility] Comment on above: Order Comment: ADD O N Performed By: #### L 501.9593, L501.4700, L503.0106, L503.6030 ####[facility] [address] [place], [place], [address] Total proteinOrdered By: Lonnie Persaud on 06-07-2025 Protein [Mass/Vol] 6.5 g/dL 5.9-8.4 [facility] Vitamin B12on 06-07-2025 Cobalamin (Vitamin B12) [Mass/Vol] 1700 pg/mL High 180-914 [facility] Comment on above: Order Comment: ADD O N Performed By: #### L 501.9520, L501.4700, L503.0106, L503.6030 ####[facility] [address] [place], [address] Vitamin B12 ser/plasOrdered By: Delmis Corral on 06-07-2025 Cobalamin (Vitamin B12) [Mass/Vol] 1700 pg/mL High 180-914 [facility] White blood cell (WBC) count Ordered By: Imani Persaud on 06-07-2025 WBC (Bld) [#/Vol] 3.3 10*3/uL Low 4.4-11.0 [facility] Absolute lymphocyte countOrd ered By: Imani Persaud on 05-31-2025 Lymphocytes Auto (Unsp spec) [#/Vol] 1.15 10*3/uL 0.83-4.51 [facility] Absolute neutrophil countOrd ered By: Imani Persaud on 05-31-2025 Neutrophils (Bld) [#/Vol] 4.6 10*3/uL 2.0-7.7 [facility] Anion gap in Serum or Plasma Ordered By: Imani Persaud on 05-31-2025 Anion gap [Moles/Vol] 13 mmol/L 5-15 [facility] Automated lymphocyte count a s percentage of total leukocytesOrdered By: Imani Persaud on 05-31-2025 Lymphocytes/100 WBC Auto (Unsp spec) 17.7 % Low 19-41 [facility] BUN/creatinine ratioOrdered By: Imani Persaud on 05-31-2025 Urea nitrogen/Creatinine [Mass ratio] 9.8 mg/mg Low 10-20 [facility] Basophil percentageOrdered B y: Imani Persaud on 05-31-2025 Basophils/100 WBC (Bld) 0.6 % 0-1 [facility] Bilirubin, totalOrdered By: Imani Persaud on 05-31-2025 Bilirubin [Mass/Vol] 0.64 mg/dL 0.00-1.30 [facility] CBC W/Diff, Automatedon 05-15 Anisocytosis Ql (Bld) 1+ Normal [facility] Comment on above: Performed By: #### L 501.5200, L100.0100, L500.4050 ####[facility] [address] [place], [address] Carbon dioxide, total [Moles /volume] in Central venous bloodOrdered By: Jenniferira Persaud on 05-31-2025 CO2 [Moles/Vol] 20.0 mmol/L Low 21.0-32.0 [facility] Chloride assayOrdered By: Jonatan vishnuira Persaud on 05-31-2025 Chloride [Moles/Vol] 107 mmol/L 98-108 [facility] Comprehensive Metabolic Prof ilon 05-31-2025 Albumin [Mass/Vol] 3.4 g/dL Low 3.5-5.0 [facility] Comment on above: Performed By: #### L 501.5200, L100.0100, L500.4050 ####[facility] [address] [place], [address] Albumin/Globulin [Mass ratio] 1.1 {ratio} Normal 0.9-2.4 [facility] Comment on above: Performed By: #### L 501.5200, L100.0100, L500.4050 ####[facility] [address] [place], [address] ALK PHOS 101 U/L Normal 35-104 [facility] Comment on above: Performed By: #### L 501.5200, L100.0100, L500.4050 ####[facility] [address] [place], [address] ALT [Catalytic activity/Vol] 33 U/L Normal <=34 [facility] Comment on above: Performed By: #### L 501.5200, L100.0100, L500.4050 ####[facility] [address] [place], [address] AST [Catalytic activity/Vol] 33 U/L High <=31 [facility] Comment on above: Performed By: #### L 501.5200, L100.0100, L500.4050 ####[facility] [address] [place], [address] Bilirubin [Mass/Vol] 0.64 mg/dL Normal 0.00-1.30 [facility] Comment on above: Performed By: #### L 501.5200, L100.0100, L500.4050 ####[facility] [address] [place], [address] BUN/CRE 9.8 RATIO Low 10-20 [facility] Comment on above: Performed By: #### L 501.5200, L100.0100, L500.4050 ####[facility] [address] [place], [address] Calcium [Mass/Vol] 8.7 mg/dL Normal 7.6-11.0 [facility] Comment on above: Performed By: #### L 501.5200, L100.0100, L500.4050 ####[facility] [address] [place], [address] Chloride [Moles/Vol] 107 mmol/L Normal 98-108 [facility] Comment on above: Performed By: #### L 501.5200, L100.0100, L500.4050 ####[facility] [address] [place], [address] CO2 [Moles/Vol] 20.0 mmol/L Low 21.0-32.0 [facility] Comment on above: Performed By: #### L 501.5200, L100.0100, L500.4050 ####[facility] [address] [place], [address] Creatinine [Mass/Vol] 0.75 mg/dL Normal 0.70-1.20 [facility] Comment on above: Performed By: #### L 501.5200, L100.0100, L500.4050 ####[facility] [address] [place], [address] ECRCL 102.10 ml/min Normal 50-250 [facility] Comment on above: Performed By: #### L 501.5200, L100.0100, L500.4050 ####[facility] [address] [place], [address] GAP 13 Normal 5-15 [facility] Comment on above: Performed By: #### L 501.5200, L100.0100, L500.4050 ####[facility] [address] [place], [address] GFR/1.73 sq M.predicted among non-blacks MDRD (S/P/Bld) [Vol rate/Area] 95 mL/min/{1.73_m2} Normal >60 [facility] Comment on above: Result Comment: mL/m in/1.73m2 CKD-EPI Creatinine Equation (2020) Performed By: #### L 501.5200, L100.0100, L500.4050 ####[facility] [address] [place], [address] Globulin (S) [Mass/Vol] 3.0 g/dL Normal 2.2-4.2 [facility] Comment on above: Performed By: #### L 501.5200, L100.0100, L500.4050 ####[facility] [address] [place], [address] Glucose [Mass/Vol] 121 mg/dL High 70-99 [facility] Comment on above: Performed By: #### L 501.5200, L100.0100, L500.4050 ####[facility] [address] [place], [address] Potassium [Moles/Vol] 3.2 mmol/L Low 3.3-5.1 [facility] Comment on above: Performed By: #### L 501.5200, L100.0100, L500.4050 ####[facility] [address] [place], [address] Sodium [Moles/Vol] 140 mmol/L Normal 133-145 [facility] Comment on above: Performed By: #### L 501.5200, L100.0100, L500.4050 ####[facility] [address] [place], [address] T PROT 6.4 g/dL Normal 5.9-8.4 [facility] Comment on above: Performed By: #### L 501.5200, L100.0100, L500.4050 ####[facility] [address] [place], [address] Urea nitrogen [Mass/Vol] 7 mg/dL Normal 4-19 [facility] Comment on above: Performed By: #### L 501.5200, L100.0100, L500.4050 ####[facility] [address] [place], [address] Eosinophil percentageOrdered By: Imani Persaud on 05-31-2025 Eosinophils/100 WBC (Bld) 1.7 % 0-5 [facility] Erythrocyte distribution wid th ratioOrdered By: Imani Persaud on 05-31-2025 Erythrocyte distribution width (RBC) [Ratio] 21.6 % High 11.6-14.6 [facility] Erythrocyte distribution wid th standard deviationOrdered By: Imani Persaud on 05-31-2025 Erythrocyte distribution width (RBC) [Ratio] 48.8 fl High 35.1-43.9 [facility] Glomerular filtration rate ( GFR) estimation/1.73 sq m using serum, plasma, or whole bOrdered By: [facility] Persaud on 05-31-2025 GFR/1.73 sq M.predicted among non-blacks MDRD (S/P/Bld) [Vol rate/Area] 95 mL/min/{1.73_m2} >60 [facility] Comment on above: mL/min/1.73m2 CKD-EP I Creatinine Equation (2020) Hematocrit Auto (Bld) [Volum e fraction]Ordered By: [facility] Persaud on 05-31-2025 Hematocrit (Bld) [Volume fraction] 28.9 % Low 37-47 [facility] Hemoglobin measurementOrdere d By: [facility] Persaud on 05-31-2025 Hemoglobin (Bld) [Mass/Vol] 9.7 g/dL Low 12.0-15.0 [facility] Immature granulocytes/100 WB C Auto (Bld)Ordered By: [facility] on 05-31-2025 Immature granulocytes/100 WBC (Bld) 2.500 % High 0.0-0.9 [facility] Comment on above: IG% - Immature Granu locytes (promyelocytes, myelocytes and metamyelocytes) > 1% indicates that a LEFT SHIFT is Present. Laboratory - Chemistry and C hemistry - challengeOrdered By: [facility] on 05-31-2025 AST [Catalytic activity/Vol] 33 U/L High <32 [facility] Laboratory - Hematology and Cell countsOrdered By: [facility] on 05-31-2025 Anisocytosis Ql (Bld) 1+ [facility] MCV (mean corpuscular volume ) determinationOrdered By: [facility] on 05-31-2025 MCV (RBC) [Entitic vol] 88.4 fL 81-99 [facility] Magnesiumon 05-31-2025 Magnesium [Mass/Vol] 2.4 mg/dL High 1.5-2.2 [facility] Comment on above: Performed By: #### L 501.5200, L100.0100, L500.4050 ####[facility] [address] [place], [place], [id number] Magnesium measurement (mass/ volume)Ordered By: Imani Persaud on 05-31-2025 Magnesium (Unsp spec) [Mass/Vol] 2.4 mg/dL High 1.5-2.2 [facility] Mean corpuscular hemoglobin (MCH) determinationOrdered By: Imani Persaud on 05-31-2025 MCH (RBC) [Entitic mass] 29.7 pg 27.0-32.0 [facility] Mean corpuscular hemoglobin concentration (MCHC) determinationOrdered By: Imani Persaud on 05-31-2025 MCHC (RBC) [Mass/Vol] 33.6 g/dL 32-36 [facility] Mean platelet volume determi nationOrdered By: Imani Persaud on 05-31-2025 Platelet mean volume (Bld) [Entitic vol] 10.2 fL 6.2-12.0 [facility] Monocyte percentageOrdered B y: Imani Persaud on 05-31-2025 Monocytes/100 WBC (Bld) 7.5 % 0-10 [facility] Neutrophil percentageOrdered By: Imani Persaud on 05-31-2025 Neutrophils/100 WBC (Bld) 70.0 % 47-70 [facility] Nucleated red blood cell per centageOrdered By: Imani Persaud on 05-31-2025 Nucleated RBC/100 WBC (Bld) [Ratio] 0.9 % 0-5 [facility] Oncology Visit Reporton 05-15 Oncology Visit Report Normal [facility] Phosphoruson 05-31-2025 Phosphate [Mass/Vol] 2.9 mg/dL Normal 2.7-4.5 [facility] Comment on above: Performed By: #### L 501.2300 ####[facility] [address] [place], [address] Platelet countOrdered By: Jonatan Persaud on 05-31-2025 Platelets (Bld) [#/Vol] 233 10*3/uL 150-450 [facility] Potassium measurement (mass/ volume)Ordered By: Imani Persaud on 05-31-2025 Potassium (Unsp spec) [Mass/Vol] 3.2 mmol/L Low 3.3-5.1 [facility] RBC Auto (Bld) [#/Vol]Ordere d By: Imani Persaud on 05-31-2025 RBC (Bld) [#/Vol] 3.27 10*6/uL Low 4.2-5.4 [facility] Serum creatinine measurement (mass/volume)Ordered By: Imani Persaud on 05-31-2025 Creatinine [Mass/Vol] 0.75 mg/dL 0.70-1.20 [facility] Serum globulin measurementOr dered By: Imani Persaud on 05-31-2025 Globulin (S) [Mass/Vol] 3.0 g/dL 2.2-4.2 [facility] Serum glucose measurement (m ass/volume)Ordered By: Imani Persaud on 05-31-2025 Glucose [Mass/Vol] 121 mg/dL High 70-99 [facility] Serum or plasma alanine del rio otransferase (ALT) measurementOrdered By: Imani Persaud on 05-31-2025 ALT [Catalytic activity/Vol] 33 U/L <35 [facility] Serum or plasma albumin cass urement (mass/volume)Ordered By: Imani Persaud on 05-31-2025 Albumin [Mass/Vol] 3.4 g/dL Low 3.5-5.0 [facility] Serum or plasma albumin/glob ulin mass ratioOrdered By: Imani Persaud on 05-31-2025 Albumin/Globulin [Mass ratio] 1.1 {ratio} 0.9-2.4 [facility] Serum or plasma alkaline tre sphatase measurementOrdered By: Imani Persaud on 05-31-2025 ALP [Catalytic activity/Vol] 101 U/L 35-104 [facility] Serum or plasma calcium cass urement (mass/volume)Ordered By: Imani Persaud on 05-31-2025 Calcium [Mass/Vol] 8.7 mg/dL 7.6-11.0 [facility] Serum or plasma urea nitroge n measurement (mass/volume)Ordered By: Imani Persaud on 05-31-2025 Urea nitrogen [Mass/Vol] 7 mg/dL 4-19 [facility] Sodium levelOrdered By: Jennifer roth Cori on 05-31-2025 Sodium [Moles/Vol] 140 mmol/L 133-145 [facility] Total proteinOrdered By: Lonnie Metzgeralma on 05-31-2025 Protein [Mass/Vol] 6.4 g/dL 5.9-8.4 [facility] White blood cell (WBC) count Ordered By: Imani Cori on 05-31-2025 WBC (Bld) [#/Vol] 6.5 10*3/uL 4.4-11.0 [facility] CBC W/Diff, Automatedon 05-15 PATH REV Reviewed Normal [facility] Comment on above: Result Comment: SEE REPORT IN PATIENT'S EMR AMENDED REPORT 05/28/25 0286 PATH REV previously reported as: March foll Performed By: #### L 501.2300, L501.5200, L500.4050, L100.0100 ####[facility] [address] [place], [place], [address] CBC W/Diff, Automatedon PATH REV Reviewed Normal [facility] Comment on above: Result Comment: SEE REPORT IN PATIENT'S EMR AMENDED REPORT 05/23/25 1647 PATH REV previously reported as: March foll Performed By: #### L 500.2500, L501.2300, L100.0100, L501.5200 ####[facility] [address] [place], [address] Absolute lymphocyte countOrd ered By: Imani Cori on 05-17-2025 Lymphocytes Auto (Unsp spec) [#/Vol] 0.85 10*3/uL 0.83-4.51 [facility] Absolute neutrophil countOrd ered By: Imani Cori on 05-17-2025 Neutrophils (Bld) [#/Vol] 0.9 10*3/uL Low 2.0-7.7 [facility] Anion gap in Serum or Plasma Ordered By: Jenniferira Persaud on 05-17-2025 Anion gap [Moles/Vol] 10 mmol/L 5-15 [facility] Automated lymphocyte count a s percentage of total leukocytesOrdered By: Imani Persaud on 05-17-2025 Lymphocytes/100 WBC Auto (Unsp spec) 41.7 % High 19-41 [facility] BUN/creatinine ratioOrdered By: Imani Persaud on 05-17-2025 Urea nitrogen/Creatinine [Mass ratio] 12.5 mg/mg 10-20 [facility] Basophil percentageOrdered B y: Imani Persaud on 05-17-2025 Basophils/100 WBC (Bld) 3.9 % High 0-1 [facility] Bilirubin, totalOrdered By: Imani Persaud on 05-17-2025 Bilirubin [Mass/Vol] 0.76 mg/dL 0.00-1.30 [facility] Blood manual differential co mment interpretation (narrative result)Ordered By: Imani Persaud on 05-17-2025 Manual differential comment Bassam (Bld) [Interp] SCANNED [facility] CBC W/Diff, Automatedon ATYPICAL LYMPH 1+ Normal [facility] Comment on above: Performed By: #### L 500.4050, L501.5200, L100.0100 ####[facility] [address] [place], [place], [address] SMEAR COMMENT SCANNED Normal [facility] Comment on above: Performed By: #### L 500.4050, L501.5200, L100.0100 ####[facility] [address] [place], [place], [address] Carbon dioxide, total [Moles /volume] in Central venous bloodOrdered By: Imani Persaud on 05-17-2025 CO2 [Moles/Vol] 20.8 mmol/L Low 21.0-32.0 [facility] Chloride assayOrdered By: Jonatan Persaud on 05-17-2025 Chloride [Moles/Vol] 105 mmol/L 98-108 [facility] Comprehensive Metabolic Prof ilon 05-17-2025 Albumin [Mass/Vol] 3.4 g/dL Low 3.5-5.0 [facility] Comment on above: Performed By: #### L 500.4050, L501.5200, L100.0100 ####[facility] [address] [place], [address] Albumin/Globulin [Mass ratio] 1.0 {ratio} Normal 0.9-2.4 [facility] Comment on above: Performed By: #### L 500.4050, L501.5200, L100.0100 ####[facility] [address] [place], [address] ALK PHOS 97 U/L Normal 35-104 [facility] Comment on above: Performed By: #### L 500.4050, L501.5200, L100.0100 ####[facility] [address] [place], [address] ALT [Catalytic activity/Vol] 70 U/L High <=34 [facility] Comment on above: Performed By: #### L 500.4050, L501.5200, L100.0100 ####[facility] [address] [place], [address] AST [Catalytic activity/Vol] 47 U/L High <=31 [facility] Comment on above: Performed By: #### L 500.4050, L501.5200, L100.0100 ####[facility] [address] [place], [address] Bilirubin [Mass/Vol] 0.76 mg/dL Normal 0.00-1.30 [facility] Comment on above: Performed By: #### L 500.4050, L501.5200, L100.0100 ####[facility] [address] [place], [address] BUN/CRE 12.5 RATIO Normal 10-20 [facility] Comment on above: Performed By: #### L 500.4050, L501.5200, L100.0100 ####[facility] [address] [place], [address] Calcium [Mass/Vol] 8.8 mg/dL Normal 7.6-11.0 [facility] Comment on above: Performed By: #### L 500.4050, L501.5200, L100.0100 ####[facility] [address] [place], [address] Chloride [Moles/Vol] 105 mmol/L Normal 98-108 [facility] Comment on above: Performed By: #### L 500.4050, L501.5200, L100.0100 ####[facility] [address] [place], [address] CO2 [Moles/Vol] 20.8 mmol/L Low 21.0-32.0 [facility] Comment on above: Performed By: #### L 500.4050, L501.5200, L100.0100 ####[facility] [address] [place], [address] Creatinine [Mass/Vol] 0.66 mg/dL Low 0.70-1.20 [facility] Comment on above: Performed By: #### L 500.4050, L501.5200, L100.0100 ####[facility] [address] [place], [address] ECRCL 116.74 ml/min Normal 50-250 [facility] Comment on above: Performed By: #### L 500.4050, L501.5200, L100.0100 ####[facility] [address] [place], [address] GAP 10 Normal 5-15 [facility] Comment on above: Performed By: #### L 500.4050, L501.5200, L100.0100 ####[facility] [address] [place], [address] GFR/1.73 sq M.predicted among non-blacks MDRD (S/P/Bld) [Vol rate/Area] 104 mL/min/{1.73_m2} Normal >60 [facility] Comment on above: Result Comment: mL/m in/1.73m2 CKD-EPI Creatinine Equation (2020) Performed By: #### L 500.4050, L501.5200, L100.0100 ####[facility] [address] [place], [address] Globulin (S) [Mass/Vol] 3.5 g/dL Normal 2.2-4.2 [facility] Comment on above: Performed By: #### L 500.4050, L501.5200, L100.0100 ####[facility] [address] [place], [address] Glucose [Mass/Vol] 123 mg/dL High 70-99 [facility] Comment on above: Performed By: #### L 500.4050, L501.5200, L100.0100 ####[facility] [address] [place], [address] Potassium [Moles/Vol] 4.1 mmol/L Normal 3.3-5.1 [facility] Comment on above: Performed By: #### L 500.4050, L501.5200, L100.0100 ####[facility] [address] [place], [address] Sodium [Moles/Vol] 136 mmol/L Normal 133-145 [facility] Comment on above: Performed By: #### L 500.4050, L501.5200, L100.0100 ####[facility] [address] [place], [address] T PROT 6.9 g/dL Normal 5.9-8.4 [facility] Comment on above: Performed By: #### L 500.4050, L501.5200, L100.0100 ####[facility] [address] [place], [place], [address] Urea nitrogen [Mass/Vol] 8 mg/dL Normal 4-19 [facility] Comment on above: Performed By: #### L 500.4050, L501.5200, L100.0100 ####[facility] [address] [place], [place], [address] Eosinophil percentageOrdered By: Imani Persaud on 05-17-2025 Eosinophils/100 WBC (Bld) 1.0 % 0-5 [facility] Erythrocyte distribution wid th ratioOrdered By: [facility] Pers[facility] on 05-17-2025 Erythrocyte distribution width (RBC) [Ratio] 14.4 % 11.6-14.6 [facility] Erythrocyte distribution wid th standard deviationOrdered By: [facility] Pers[facility] on 05-17-2025 Erythrocyte distribution width (RBC) [Ratio] 41.2 fl 35.1-43.9 [facility] Glomerular filtration rate ( GFR) estimation/1.73 sq m using serum, plasma, or whole bOrdered By: [facility] Pers[facility] on 05-17-2025 GFR/1.73 sq M.predicted among non-blacks MDRD (S/P/Bld) [Vol rate/Area] 104 mL/min/{1.73_m2} >60 [facility] Comment on above: mL/min/1.73m2 CKD-EP I Creatinine Equation (2020) Hematocrit Auto (Bld) [Volum e fraction]Ordered By: Imani Persaud on 05-17-2025 Hematocrit (Bld) [Volume fraction] 29.8 % Low 37-47 [facility] Hemoglobin measurementOrdere d By: Imani Persaud on 05-17-2025 Hemoglobin (Bld) [Mass/Vol] 10.4 g/dL Low 12.0-15.0 [facility] Immature granulocytes/100 WB C Auto (Bld)Ordered By: Imani Persaud on 05-17-2025 Immature granulocytes/100 WBC (Bld) 0.500 % 0.0-0.9 [facility] Comment on above: IG% - Immature Granu locytes (promyelocytes, myelocytes and metamyelocytes) > 1% indicates that a LEFT SHIFT is Present. Laboratory - Chemistry and C hemistry - challengeOrdered By: Imani Persaud on 05-17-2025 AST [Catalytic activity/Vol] 47 U/L High <32 [facility] MCV (mean corpuscular volume ) determinationOrdered By: Imani Persaud on 05-17-2025 MCV (RBC) [Entitic vol] 83.2 fL 81-99 [facility] Magnesiumon 05-17-2025 Magnesium [Mass/Vol] 2.3 mg/dL High 1.5-2.2 [facility] Comment on above: Performed By: #### L 500.4050, L501.5200, L100.0100 ####[facility] [address] [place], [address] Magnesium measurement (mass/ volume)Ordered By: Imani Persaud on 05-17-2025 Magnesium (Unsp spec) [Mass/Vol] 2.3 mg/dL High 1.5-2.2 [facility] Mean corpuscular hemoglobin (MCH) determinationOrdered By: Imani Persaud on 05-17-2025 MCH (RBC) [Entitic mass] 29.1 pg 27.0-32.0 [facility] Mean corpuscular hemoglobin concentration (MCHC) determinationOrdered By: Imani Persaud on 05-17-2025 MCHC (RBC) [Mass/Vol] 34.9 g/dL 32-36 [facility] Mean platelet volume determi nationOrdered By: Imani Persaud on 05-17-2025 Platelet mean volume (Bld) [Entitic vol] 9.7 fL 6.2-12.0 [facility] Monocyte percentageOrdered B y: Imani Persaud on 05-17-2025 Monocytes/100 WBC (Bld) 8.8 % 0-10 [facility] Neutrophil percentageOrdered By: Imani Persaud on 05-17-2025 Neutrophils/100 WBC (Bld) 44.1 % Low 47-70 [facility] Nucleated red blood cell per centageOrdered By: Imani Persaud on 05-17-2025 Nucleated RBC/100 WBC (Bld) [Ratio] 1.0 % 0-5 [facility] Oncology Visit Reporton Oncology Visit Report Normal [facility] Phosphoruson 05-17-2025 Phosphate [Mass/Vol] 3.3 mg/dL Normal 2.7-4.5 [facility] Comment on above: Performed By: #### L 501.2300 ####[facility] [address] [place], [address] Platelet countOrdered By: Jonatan Persaud on 05-17-2025 Platelets (Bld) [#/Vol] 210 10*3/uL 150-450 [facility] Potassium measurement (mass/ volume)Ordered By: Imani Perasud on 05-17-2025 Potassium (Unsp spec) [Mass/Vol] 4.1 mmol/L 3.3-5.1 [facility] RBC Auto (Bld) [#/Vol]Ordere d By: Imani Persaud on 05-17-2025 RBC (Bld) [#/Vol] 3.58 10*6/uL Low 4.2-5.4 [facility] Serum creatinine measurement (mass/volume)Ordered By: Imani Persaud on 05-17-2025 Creatinine [Mass/Vol] 0.66 mg/dL Low 0.70-1.20 [facility] Serum globulin measurementOr dered By: Imani Persaud on 05-17-2025 Globulin (S) [Mass/Vol] 3.5 g/dL 2.2-4.2 [facility] Serum glucose measurement (m ass/volume)Ordered By: Imani Persaud on 05-17-2025 Glucose [Mass/Vol] 123 mg/dL High 70-99 [facility] Serum or plasma alanine del rio otransferase (ALT) measurementOrdered By: Imani Persaud on 05-17-2025 ALT [Catalytic activity/Vol] 70 U/L High <35 [facility] Serum or plasma albumin cass urement (mass/volume)Ordered By: Imani Persaud on 05-17-2025 Albumin [Mass/Vol] 3.4 g/dL Low 3.5-5.0 [facility] Serum or plasma albumin/glob ulin mass ratioOrdered By: Imani Persaud on 05-17-2025 Albumin/Globulin [Mass ratio] 1.0 {ratio} 0.9-2.4 [facility] Serum or plasma alkaline tre sphatase measurementOrdered By: Imani Persaud on 05-17-2025 ALP [Catalytic activity/Vol] 97 U/L 35-104 [facility] Serum or plasma calcium cass urement (mass/volume)Ordered By: Imani Persaud on 05-17-2025 Calcium [Mass/Vol] 8.8 mg/dL 7.6-11.0 [facility] Serum or plasma urea nitroge n measurement (mass/volume)Ordered By: Imani Persaud on 05-17-2025 Urea nitrogen [Mass/Vol] 8 mg/dL 4-19 [facility] Sodium levelOrdered By: Jennifer Persaud on 05-17-2025 Sodium [Moles/Vol] 136 mmol/L 133-145 [facility] Total proteinOrdered By: Lonnie Persaud on 05-17-2025 Protein [Mass/Vol] 6.9 g/dL 5.9-8.4 [facility] White blood cell (WBC) count Ordered By: Imani Persaud on 05-17-2025 WBC (Bld) [#/Vol] 2.0 10*3/uL Low 4.4-11.0 [facility] Absolute lymphocyte countOrd ered By: Imani Persaud on 05-10-2025 Lymphocytes Auto (Unsp spec) [#/Vol] 2.04 10*3/uL 0.83-4.51 [facility] Absolute neutrophil countOrd ered By: Imani Persaud on 05-10-2025 Neutrophils (Bld) [#/Vol] 2.4 10*3/uL 2.0-7.7 [facility] Anion gap in Serum or Plasma Ordered By: Imani Persaud on 05-10-2025 Anion gap [Moles/Vol] 14 mmol/L 5-15 [facility] BUN/creatinine ratioOrdered By: Imani Persaud on 05-10-2025 Urea nitrogen/Creatinine [Mass ratio] 13.5 mg/mg 10-20 [facility] Bilirubin, totalOrdered By: Imani Persaud on 05-10-2025 Bilirubin [Mass/Vol] 0.37 mg/dL 0.00-1.30 [facility] Blood band neutrophil count as percentage of total leukocytesOrdered By: Imain Persaud on 05-10-2025 Band form neutrophils/100 WBC (Bld) 3 % 0-5 [facility] Blood lymphocytes/100 leukoc ytesOrdered By: [facility] Pers[facility] on 05-10-2025 Lymphocytes/100 WBC (Bld) 42 % High 19-41 [facility] Blood metamyelocytes/100 [place] kocytesOrdered By: [facility] Persaud on 05-10-2025 Metamyelocytes/100 WBC (Bld) 5 % High 0-1 [facility] Blood monocytes/100 leukocyt esOrdered By: [facility] Pers[facility] on 05-10-2025 Monocytes/100 WBC (Bld) 3 % 0-10 [facility] Blood segmented neutrophils/ 100 leukocytesOrdered By: [facility] Cori on 05-10-2025 Segmented neutrophils/100 WBC (Bld) 47 % 47-70 [facility] Carbon dioxide, total [Moles /volume] in Central venous bloodOrdered By: Imani Persaud on 05-10-2025 CO2 [Moles/Vol] 21.6 mmol/L 21.0-32.0 [facility] Chloride assayOrdered By: Jonatan Persaud on 05-10-2025 Chloride [Moles/Vol] 105 mmol/L 98-108 [facility] Comprehensive Metabolic Prof ilon 05-10-2025 Albumin [Mass/Vol] 3.4 g/dL Low 3.5-5.0 [facility] Comment on above: Performed By: #### L 501.2300, L501.5200, L500.4050, L100.0100 ####[facility] [address] [place], [address] Albumin/Globulin [Mass ratio] 1.1 {ratio} Normal 0.9-2.4 [facility] Comment on above: Performed By: #### L 501.2300, L501.5200, L500.4050, L100.0100 ####[facility] [address] [place], [address] ALK PHOS 90 U/L Normal 35-104 [facility] Comment on above: Performed By: #### L 501.2300, L501.5200, L500.4050, L100.0100 ####[facility] [address] [place], [address] ALT [Catalytic activity/Vol] 29 U/L Normal <=34 [facility] Comment on above: Performed By: #### L 501.2300, L501.5200, L500.4050, L100.0100 ####[facility] [address] [place], [address] AST [Catalytic activity/Vol] 25 U/L Normal <=31 [facility] Comment on above: Performed By: #### L 501.2300, L501.5200, L500.4050, L100.0100 ####[facility] [address] [place], [address] Bilirubin [Mass/Vol] 0.37 mg/dL Normal 0.00-1.30 [facility] Comment on above: Performed By: #### L 501.2300, L501.5200, L500.4050, L100.0100 ####[facility] [address] [place], [address] BUN/CRE 13.5 RATIO Normal 10-20 [facility] Comment on above: Performed By: #### L 501.2300, L501.5200, L500.4050, L100.0100 ####[facility] [address] [place], [address] Calcium [Mass/Vol] 8.8 mg/dL Normal 7.6-11.0 [facility] Comment on above: Performed By: #### L 501.2300, L501.5200, L500.4050, L100.0100 ####[facility] [address] [place], [address] Chloride [Moles/Vol] 105 mmol/L Normal 98-108 [facility] Comment on above: Performed By: #### L 501.2300, L501.5200, L500.4050, L100.0100 ####[facility] [address] [place], [address] CO2 [Moles/Vol] 21.6 mmol/L Normal 21.0-32.0 [facility] Comment on above: Performed By: #### L 501.2300, L501.5200, L500.4050, L100.0100 ####[facility] [address] [place], [address] Creatinine [Mass/Vol] 0.66 mg/dL Low 0.70-1.20 [facility] Comment on above: Performed By: #### L 501.2300, L501.5200, L500.4050, L100.0100 ####[facility] [address] [place], [address] ECRCL 116.58 ml/min Normal 50-250 [facility] Comment on above: Performed By: #### L 501.2300, L501.5200, L500.4050, L100.0100 ####[facility] [address] [place], [address] GAP 14 Normal 5-15 [facility] Comment on above: Performed By: #### L 501.2300, L501.5200, L500.4050, L100.0100 ####[facility] [address] [place], [address] GFR/1.73 sq M.predicted among non-blacks MDRD (S/P/Bld) [Vol rate/Area] 104 mL/min/{1.73_m2} Normal >60 [facility] Comment on above: Result Comment: mL/m in/1.73m2 CKD-EPI Creatinine Equation (2020) Performed By: #### L 501.2300, L501.5200, L500.4050, L100.0100 ####[facility] [address] [place], [address] Globulin (S) [Mass/Vol] 3.1 g/dL Normal 2.2-4.2 [facility] Comment on above: Performed By: #### L 501.2300, L501.5200, L500.4050, L100.0100 ####[facility] [address] [place], [address] Glucose [Mass/Vol] 139 mg/dL High 70-99 [facility] Comment on above: Performed By: #### L 501.2300, L501.5200, L500.4050, L100.0100 ####[facility] [address] [place], [address] Potassium [Moles/Vol] 3.5 mmol/L Normal 3.3-5.1 [facility] Comment on above: Performed By: #### L 501.2300, L501.5200, L500.4050, L100.0100 ####[facility] [address] [place], [address] Sodium [Moles/Vol] 140 mmol/L Normal 133-145 [facility] Comment on above: Performed By: #### L 501.2300, L501.5200, L500.4050, L100.0100 ####[facility] [address] [place], [address] T PROT 6.5 g/dL Normal 5.9-8.4 [facility] Comment on above: Performed By: #### L 501.2300, L501.5200, L500.4050, L100.0100 ####[facility] [address] [place], [address] Urea nitrogen [Mass/Vol] 9 mg/dL Normal 4-19 [facility] Comment on above: Performed By: #### L 501.2300, L501.5200, L500.4050, L100.0100 ####[facility] [address] [place], [address] Culture, Blood (WB)on 2024 CUB Blood cultures x2, f rom two different sites No growth in 5 days. Normal [facility] Comment on above: Performed By: #### M 200.1000 ####[facility] [address] [place], [address] Erythrocyte distribution wid th ratioOrdered By: Imani Persaud on 05-10-2025 Erythrocyte distribution width (RBC) [Ratio] 14.3 % 11.6-14.6 [facility] Erythrocyte distribution wid th standard deviationOrdered By: Imani Persaud on 05-10-2025 Erythrocyte distribution width (RBC) [Ratio] 39.9 fl 35.1-43.9 [facility] Erythrocyte morphology asses smentOrdered By: Imani Persaud on 05-10-2025 RBC morphology finding Nom (Bld) NORM C+C NORMAL NORM C&C [facility] Glomerular filtration rate ( GFR) estimation/1.73 sq m using serum, plasma, or whole bOrdered By: Imani Persaud on 05-10-2025 GFR/1.73 sq M.predicted among non-blacks MDRD (S/P/Bld) [Vol rate/Area] 104 mL/min/{1.73_m2} >60 [facility] Comment on above: mL/min/1.73m2 CKD-EP I Creatinine Equation (2020) Hematocrit Auto (Bld) [Volum e fraction]Ordered By: Imani Persaud on 05-10-2025 Hematocrit (Bld) [Volume fraction] 33.4 % Low 37-47 [facility] Hemoglobin measurementOrdere d By: [facility] on 05-10-2025 Hemoglobin (Bld) [Mass/Vol] 11.4 g/dL Low 12.0-15.0 [facility] Laboratory - Chemistry and C hemistry - challengeOrdered By: [facility] Pers[facility] on 05-10-2025 AST [Catalytic activity/Vol] 25 U/L <32 [facility] MCV (mean corpuscular volume ) determinationOrdered By: [facility] Pers[facility] on 05-10-2025 MCV (RBC) [Entitic vol] 84.3 fL 81-99 [facility] Magnesiumon 05-10-2025 Magnesium [Mass/Vol] 2.2 mg/dL Normal 1.5-2.2 [facility] Comment on above: Performed By: #### L 501.2300, L501.5200, L500.4050, L100.0100 ####[facility] [address] [place], [address] Magnesium measurement (mass/ volume)Ordered By: [facility] Cori on 05-10-2025 Magnesium (Unsp spec) [Mass/Vol] 2.2 mg/dL 1.5-2.2 [facility] Mean corpuscular hemoglobin (MCH) determinationOrdered By: [facility] Pers[facility] on 05-10-2025 MCH (RBC) [Entitic mass] 28.8 pg 27.0-32.0 [facility] Mean corpuscular hemoglobin concentration (MCHC) determinationOrdered By: [facility] Pers[facility] on 05-10-2025 MCHC (RBC) [Mass/Vol] 34.1 g/dL 32-36 [facility] Mean platelet volume determi nationOrdered By: [facility] Pers[facility] on 05-10-2025 Platelet mean volume (Bld) [Entitic vol] 9.4 fL 6.2-12.0 [facility] Oncology Visit Reporton 04-16 Oncology Visit Report Normal [facility] Phosphoruson 05-10-2025 Phosphate [Mass/Vol] 2.9 mg/dL Normal 2.7-4.5 [facility] Comment on above: Performed By: #### L 501.2300, L501.5200, L500.4050, L100.0100 ####[facility] [address] [place], [address] Platelet countOrdered By: Jonatan Persaud on 05-10-2025 Platelets (Bld) [#/Vol] 399 10*3/uL 150-450 [facility] Platelet estimateOrdered By: Imani Persaud on 05-10-2025 Platelets LM Ql (Bld) ADEQUATE ADEQ [facility] Potassium measurement (mass/ volume)Ordered By: Imani Persaud on 05-10-2025 Potassium (Unsp spec) [Mass/Vol] 3.5 mmol/L 3.3-5.1 [facility] RBC Auto (Bld) [#/Vol]Ordere d By: Imani Persaud on 05-10-2025 RBC (Bld) [#/Vol] 3.96 10*6/uL Low 4.2-5.4 [facility] Review by pathologistOrdered By: Imani Persaud on 05-10-2025 Pathologist review Bassam (Unsp spec) [Interp] Susan turner [facility] Pathologist review Bassam (Unsp spec) [Interp] Reviewed [facility] Comment on above: Previous reported re sult: Susan turner Edited by: SURENDRA on 05/28/25:1526SEE REPORT IN PATIENT'S EMR AMENDED REPORT 05/28/25 1526 PATH REV previously reported as: Susan turner Serum creatinine measurement (mass/volume)Ordered By: Imani Persaud on 05-10-2025 Creatinine [Mass/Vol] 0.66 mg/dL Low 0.70-1.20 [facility] Serum globulin measurementOr dered By: Imani Persaud on 05-10-2025 Globulin (S) [Mass/Vol] 3.1 g/dL 2.2-4.2 [facility] Serum glucose measurement (m ass/volume)Ordered By: Imani Persaud on 05-10-2025 Glucose [Mass/Vol] 139 mg/dL High 70-99 [facility] Serum or plasma alanine del rio otransferase (ALT) measurementOrdered By: Imani Persaud on 05-10-2025 ALT [Catalytic activity/Vol] 29 U/L <35 [facility] Serum or plasma albumin cass urement (mass/volume)Ordered By: Imani Persaud on 05-10-2025 Albumin [Mass/Vol] 3.4 g/dL Low 3.5-5.0 [facility] Serum or plasma albumin/glob ulin mass ratioOrdered By: Imani Persaud on 05-10-2025 Albumin/Globulin [Mass ratio] 1.1 {ratio} 0.9-2.4 [facility] Serum or plasma alkaline tre sphatase measurementOrdered By: Imani Persaud on 05-10-2025 ALP [Catalytic activity/Vol] 90 U/L 35-104 [facility] Serum or plasma calcium cass urement (mass/volume)Ordered By: Imani Persaud on 05-10-2025 Calcium [Mass/Vol] 8.8 mg/dL 7.6-11.0 [facility] Serum or plasma urea nitroge n measurement (mass/volume)Ordered By: Imani Persaud on 05-10-2025 Urea nitrogen [Mass/Vol] 9 mg/dL 4-19 [facility] Sodium levelOrdered By: Jennifer Persaud on 05-10-2025 Sodium [Moles/Vol] 140 mmol/L 133-145 [facility] Total cell countOrdered By: Imani Persaud on 05-10-2025 Cells counted Molgen (Bld/Tiss) [#] 100 MANUAL DIFF [facility] Total proteinOrdered By: Lonnie Persaud on 05-10-2025 Protein [Mass/Vol] 6.5 g/dL 5.9-8.4 [facility] White blood cell (WBC) count Ordered By: Imani Persaud on 05-10-2025 WBC (Bld) [#/Vol] 4.9 10*3/uL 4.4-11.0 [facility] Urine Cultureon 05-07-2025 URC #1, 2 Below infectio n level. Mixed Gram Positive Organisms Laurel Count 1000-10,000 MIXC Mixed contaminants. Submit a new specimen if indicated. GPCENT [place] Count <1000 Normal [facility] Comment on above: Performed By: #### L 400.0001, M100.2200 ####[facility] [address] [place], [address] Absolute lymphocyte countOrd ered By: Radha Norman on 05-04-2025 Lymphocytes Auto (Unsp spec) [#/Vol] 0.60 10*3/uL Low 0.83-4.51 [facility] Absolute neutrophil countOrd ered By: Radha Norman on 05-04-2025 Neutrophils (Bld) [#/Vol] 0.1 10*3/uL Low 2.0-7.7 [facility] Anion gap in Serum or Plasma Ordered By: Radha Norman on 05-04-2025 Anion gap [Moles/Vol] 11 mmol/L 5-15 [facility] Automated lymphocyte count a s percentage of total leukocytesOrdered By: Radha Norman on 05-04-2025 Lymphocytes/100 WBC Auto (Unsp spec) 71.4 % High 19-41 [facility] BUN/creatinine ratioOrdered By: Radha Norman on 05-04-2025 Urea nitrogen/Creatinine [Mass ratio] 13.7 mg/mg 10-20 [facility] Basophil percentageOrdered B y: Radha Norman on 05-04-2025 Basophils/100 WBC (Bld) 2.4 % High 0-1 [facility] Bilirubin Test strip Ql (U)O rdered By: Radha Norman on 05-04-2025 Bilirubin Ql (U) 1 mg/dL High Negative [facility] Comment on above: COLOR OF URINE MAY A FFECT DIPSTICK RESULTS. Bilirubin, totalOrdered By: Radha Norman on 05-04-2025 Bilirubin [Mass/Vol] 0.62 mg/dL 0.00-1.30 [facility] Blood cultureOrdered By: Kavya Norman on 05-04-2025 Bacteria identified Cx Nom (Bld) No growth in 5 days. [facility] Blood manual differential co mment interpretation (narrative result)Ordered By: Radha Norman on 06-20-2025 Manual differential comment Bassam (Bld) [Interp] SCANNED [facility] CBC W/Diff, Automatedon 04-16 PLT EST MKD DEC Normal ADEQ [facility] Comment on above: Performed By: #### L 100.0100, L503.6005, L300.3900, L500.4050, L509.7001 ####[facility] [address] [place], [address] SMEAR COMMENT SCANNED Normal [facility] Comment on above: Performed By: #### L 100.0100, L503.6005, L300.3900, L500.4050, L509.7001 ####[facility] [address] [place], [address] Carbon dioxide, total [Moles /volume] in Central venous bloodOrdered By: Radha Norman on 05-04-2025 CO2 [Moles/Vol] 21.2 mmol/L 21.0-32.0 [facility] Chest PA and Lateralon 05-04 Chest PA and Lateral Normal [facility] Chloride assayOrdered By: Melissa Norman on 05-04-2025 Chloride [Moles/Vol] 101 mmol/L 98-108 [facility] Comprehensive Metabolic Prof ilon 05-04-2025 Albumin [Mass/Vol] 3.4 g/dL Low 3.5-5.0 [facility] Comment on above: Performed By: #### L 100.0100, L503.6005, L300.3900, L500.4050, L509.7001 ####[facility] [address] [place], [address] Albumin/Globulin [Mass ratio] 1.0 {ratio} Normal 0.9-2.4 [facility] Comment on above: Performed By: #### L 100.0100, L503.6005, L300.3900, L500.4050, L509.7001 ####[facility] [address] [place], [address] ALK PHOS 90 U/L Normal 35-104 [facility] Comment on above: Performed By: #### L 100.0100, L503.6005, L300.3900, L500.4050, L509.7001 ####[facility] [address] [place], [address] ALT [Catalytic activity/Vol] 49 U/L High <=34 [facility] Comment on above: Performed By: #### L 100.0100, L503.6005, L300.3900, L500.4050, L509.7001 ####[facility] [address] [place], [address] AST [Catalytic activity/Vol] 43 U/L High <=31 [facility] Comment on above: Performed By: #### L 100.0100, L503.6005, L300.3900, L500.4050, L509.7001 ####[facility] [address] [place], [address] Bilirubin [Mass/Vol] 0.62 mg/dL Normal 0.00-1.30 [facility] Comment on above: Performed By: #### L 100.0100, L503.6005, L300.3900, L500.4050, L509.7001 ####[facility] [address] [place], [address] BUN/CRE 13.7 RATIO Normal 10-20 [facility] Comment on above: Performed By: #### L 100.0100, L503.6005, L300.3900, L500.4050, L509.7001 ####[facility] [address] [place], [address] Calcium [Mass/Vol] 8.7 mg/dL Normal 7.6-11.0 [facility] Comment on above: Performed By: #### L 100.0100, L503.6005, L300.3900, L500.4050, L509.7001 ####[facility] [address] [place], [address] Chloride [Moles/Vol] 101 mmol/L Normal 98-108 [facility] Comment on above: Performed By: #### L 100.0100, L503.6005, L300.3900, L500.4050, L509.7001 ####[facility] [address] [place], [address] CO2 [Moles/Vol] 21.2 mmol/L Normal 21.0-32.0 [facility] Comment on above: Performed By: #### L 100.0100, L503.6005, L300.3900, L500.4050, L509.7001 ####[facility] [address] [place], [address] Creatinine [Mass/Vol] 0.59 mg/dL Low 0.70-1.20 [facility] Comment on above: Performed By: #### L 100.0100, L503.6005, L300.3900, L500.4050, L509.7001 ####[facility] [address] [place], [address] ECRCL 130.14 ml/min Normal 50-250 [facility] Comment on above: Performed By: #### L 100.0100, L503.6005, L300.3900, L500.4050, L509.7001 ####[facility] [address] [place], [address] GAP 11 Normal 5-15 [facility] Comment on above: Performed By: #### L 100.0100, L503.6005, L300.3900, L500.4050, L509.7001 ####[facility] [address] [place], [address] GFR/1.73 sq M.predicted among non-blacks MDRD (S/P/Bld) [Vol rate/Area] 107 mL/min/{1.73_m2} Normal >60 [facility] Comment on above: Result Comment: mL/m in/1.73m2 CKD-EPI Creatinine Equation (2020) Performed By: #### L 100.0100, L503.6005, L300.3900, L500.4050, L509.7001 ####[facility] [address] [place], [address] Globulin (S) [Mass/Vol] 3.4 g/dL Normal 2.2-4.2 [facility] Comment on above: Performed By: #### L 100.0100, L503.6005, L300.3900, L500.4050, L509.7001 ####[facility] [address] [place], [address] Glucose [Mass/Vol] 115 mg/dL High 70-99 [facility] Comment on above: Performed By: #### L 100.0100, L503.6005, L300.3900, L500.4050, L509.7001 ####[facility] [address] [place], [address] Potassium [Moles/Vol] 3.7 mmol/L Normal 3.3-5.1 [facility] Comment on above: Performed By: #### L 100.0100, L503.6005, L300.3900, L500.4050, L509.7001 ####[facility] [address] [place], [address] Sodium [Moles/Vol] 133 mmol/L Normal 133-145 [facility] Comment on above: Performed By: #### L 100.0100, L503.6005, L300.3900, L500.4050, L509.7001 ####[facility] [address] [place], [address] T PROT 6.7 g/dL Normal 5.9-8.4 [facility] Comment on above: Performed By: #### L 100.0100, L503.6005, L300.3900, L500.4050, L509.7001 ####[facility] [address] [place], [address] Urea nitrogen [Mass/Vol] 8 mg/dL Normal 4-19 [facility] Comment on above: Performed By: #### L 100.0100, L503.6005, L300.3900, L500.4050, L509.7001 ####[facility] [address] [place], [address] Culture, Blood (WB)on 2024 CUB No growth in 5 days. Normal [facility] Comment on above: Performed By: #### L 300.4310, L503.6005, L500.4050, M200.1000, L300.3900, L100.0100 ####[facility] [address] [place], [address] CUB No growth in 5 days. Normal [facility] Comment on above: Performed By: #### M 200.1000 ####[facility] [address] [place], [place], [address] Emergency Department Summary on 05-04-2025 Emergency Department Summary Normal [facility] Eosinophil percentageOrdered By: Radha Norman on 05-04-2025 Eosinophils/100 WBC (Bld) 3.6 % 0-5 [facility] Erythrocyte distribution wid th ratioOrdered By: Radha Norman on 05-04-2025 Erythrocyte distribution width (RBC) [Ratio] 12.4 % 11.6-14.6 [facility] Erythrocyte distribution wid th standard deviationOrdered By: Radha Norman on 05-04-2025 Erythrocyte distribution width (RBC) [Ratio] 36.2 fl 35.1-43.9 [facility] Glomerular filtration rate ( GFR) estimation/1.73 sq m using serum, plasma, or whole bOrdered By: Radha Norman on 05-04-2025 GFR/1.73 sq M.predicted among non-blacks MDRD (S/P/Bld) [Vol rate/Area] 107 mL/min/{1.73_m2} >60 [facility] Comment on above: mL/min/1.73m2 CKD-EP I Creatinine Equation (2020) Haptoglobinon 05-04-2025 HAPTOGLOBIN 361 mg/dL High 33-346 [facility] Comment on above: Order Comment: MARIEL Angulo ADD ON Result Comment: Perf ormed at: [facility] [place] [id number] Director: Richi Vargas PhD, Phone: [phone] Performed By: #### L 504.2610, L100.9934, L3100.0758 ####[facility] [address] [place], [address] Hematocrit Auto (Bld) [Volum e fraction]Ordered By: Radha Norman on 05-04-2025 Hematocrit (Bld) [Volume fraction] 30.4 % Low 37-47 [facility] Hemoglobin measurementOrdere d By: Radha Norman on 05-04-2025 Hemoglobin (Bld) [Mass/Vol] 10.7 g/dL Low 12.0-15.0 [facility] Immature granulocytes/100 WB C Auto (Bld)Ordered By: Radha Norman on 05-04-2025 Immature granulocytes/100 WBC (Bld) 4.800 % High 0.0-0.9 [facility] Comment on above: IG% - Immature Granu locytes (promyelocytes, myelocytes and metamyelocytes) > 1% indicates that a LEFT SHIFT is Present. International normalized rat io (INR) calculationOrdered By: Girish Mcgarry on 05-04-2025 INR Coag (Bld) [Relative time] 1.2 {INR} [facility] Ketones Test strip Ql (U)Ord ered By: Radha Norman on 05-04-2025 Ketones Ql (U) Negative Negative [facility] L509.7001on 05-04-2025 Procalcitonin 0.11 ng/mL Normal <=0.10 [facility] Comment on above: Result Comment: Inte rpretation:<0.10-0.25 [...] #### L 100.0100, L503.6005, L300.3900, L500.4050, L509.7001 ####[facility] [address] [place], [place], [id number] Laboratory - Chemistry and C hemistry - challengeOrdered By: Radha Norman on 05-04-2025 AST [Catalytic activity/Vol] 43 U/L High <32 [facility] Lactic Acidon 05-04-2025 Lactate [Moles/Vol] mmol/L Normal 0.0-2.0 [facility] Comment on above: Order Comment: Y Performed By: #### L 100.0100, L503.6005, L300.3900, L500.4050, L509.7001 ####[facility] [address] [place], [place], [id number] Lactic acid measurementOrder ed By: Radha Norman on 05-04-2025 Lactate [Moles/Vol] mmol/L 0.0-2.0 [facility] MCV (mean corpuscular volume ) determinationOrdered By: Radha Norman on 05-04-2025 MCV (RBC) [Entitic vol] 81.1 fL 81-99 [facility] Mean corpuscular hemoglobin (MCH) determinationOrdered By: Radha Norman on 05-04-2025 MCH (RBC) [Entitic mass] 28.5 pg 27.0-32.0 [facility] Mean corpuscular hemoglobin concentration (MCHC) determinationOrdered By: Radha Norman on 05-04-2025 MCHC (RBC) [Mass/Vol] 35.2 g/dL 32-36 [facility] Mean platelet volume determi nationOrdered By: Radha Norman on 05-04-2025 Platelet mean volume (Bld) [Entitic vol] 10.9 fL 6.2-12.0 [facility] Microscopic analysis of urin e for red blood cells (RBC)Ordered By: Radha Norman on 05-04-2025 Microscopic analysis of urine for red blood cells (RBC) > 100 SEEN /hpf 0-5 [facility] Monocyte percentageOrdered B y: Radha Norman on 05-04-2025 Monocytes/100 WBC (Bld) 11.9 % High 0-10 [facility] Mucus LM Ql (Urine sed)Order ed By: Radha Norman on 05-04-2025 Mucus Ql (Urine sed) 1+ /hpf [facility] Neutrophil percentageOrdered By: Radha Norman on 05-04-2025 Neutrophils/100 WBC (Bld) 5.9 % Low 47-70 [facility] Nitrite Test strip Ql (U)Ord ered By: Radha Norman on 05-04-2025 Nitrite Ql (U) Positive High Negative [facility] Nucleated red blood cell per centageOrdered By: Radha Norman on 05-04-2025 Nucleated RBC/100 WBC (Bld) [Ratio] 4.8 % 0-5 [facility] Platelet countOrdered By: Melissa Norman on 05-04-2025 Platelets (Bld) [#/Vol] 35 10*3/uL Low 150-450 [facility] Comment on above: CRITICAL VALUE HOFFMAN D TO PHILLIP MCKENZIE05/04/25 2007 Leia Berger.RESULTS READ BACK BY SAME. Platelet estimateOrdered By: Radha Norman on 05-04-2025 Platelets LM Ql (Bld) MKD DEC ADEQ [facility] Potassium measurement (mass/ volume)Ordered By: Radha Norman on 05-04-2025 Potassium (Unsp spec) [Mass/Vol] 3.7 mmol/L 3.3-5.1 [facility] Procalcitonin [Mass/volume] in Serum or Plasma by ImmunoassayOrdered By: Radhadavid Norman on 05-04-2025 Procalcitonin IA [Mass/Vol] 0.11 ng/mL <0.11 [facility] Comment on above: Interpretation:<0.10 -0.25 ng/mL: Antibiotic [...] Protein Ql (U) 100 mg/dl High Negative [facility] Prothrombin Time w/INRon INR Coag (PPP) [Relative time] 1.2 {INR} Normal [facility] Comment on above: Performed By: #### L 300.3900 ####[facility] [address] [place], [address] PT Coag (PPP) [Time] 15.0 s High 11.7-14.9 [facility] Comment on above: Performed By: #### L 300.3900 ####[facility] [address] [place], [address] INR Normal [facility] Comment on above: Result Comment: This specimen has been REJECTED due to Laboratory criteria:Quantity Not Sufficient.PHILLIP MAGALY has been notified of need of recollection.05/04/252011 Leia Berger Performed By: #### L 100.0100, L503.6005, L300.3900, L500.4050, L509.7001 ####[facility] [address] [place], [address] PROTIME Normal 11.7-14.9 [facility] Comment on above: Result Comment: This specimen has been REJECTED due to Laboratory criteria:Quantity Not Sufficient.PHILLIP MCKENZIE has been notified of need of recollection.05/04/252011 Leia Berger Performed By: #### L 100.0100, L503.6005, L300.3900, L500.4050, L509.7001 ####[facility] [address] [place], [address] Prothrombin timeOrdered By: Girish Mcgarry on 05-04-2025 PT Coag (PPP) [Time] 15.0 s High 11.7-14.9 [facility] RBC Auto (Bld) [#/Vol]Ordere d By: Radha Norman on 05-04-2025 RBC (Bld) [#/Vol] 3.75 10*6/uL Low 4.2-5.4 [facility] Review by pathologistOrdered By: Radha Norman on 05-04-2025 Pathologist review Bassam (Unsp spec) [Interp] [employer] [facility] Comment on above: SENT TO PATH 05/03/25 Serum creatinine measurement (mass/volume)Ordered By: Radha Norman on 05-04-2025 Creatinine [Mass/Vol] 0.59 mg/dL Low 0.70-1.20 [facility] Serum globulin measurementOr dered By: Radha Norman on 05-04-2025 Globulin (S) [Mass/Vol] 3.4 g/dL 2.2-4.2 [facility] Serum glucose measurement (m ass/volume)Ordered By: Radha Norman on 05-04-2025 Glucose [Mass/Vol] 115 mg/dL High 70-99 [facility] Serum or plasma alanine del rio otransferase (ALT) measurementOrdered By: Radha Norman on 05-04-2025 ALT [Catalytic activity/Vol] 49 U/L High <35 [facility] Serum or plasma albumin cass urement (mass/volume)Ordered By: Radha Norman on 05-04-2025 Albumin [Mass/Vol] 3.4 g/dL Low 3.5-5.0 [facility] Serum or plasma albumin/glob ulin mass ratioOrdered By: Radha Norman on 05-04-2025 Albumin/Globulin [Mass ratio] 1.0 {ratio} 0.9-2.4 [facility] Serum or plasma alkaline tre sphatase measurementOrdered By: Radha Norman on 05-04-2025 ALP [Catalytic activity/Vol] 90 U/L 35-104 [facility] Serum or plasma calcium cass urement (mass/volume)Ordered By: Radha Norman on 05-04-2025 Calcium [Mass/Vol] 8.7 mg/dL 7.6-11.0 [facility] Serum or plasma urea nitroge n measurement (mass/volume)Ordered By: Radha Norman on 05-04-2025 Urea nitrogen [Mass/Vol] 8 mg/dL 4-19 [facility] Sodium levelOrdered By: Radha Norman on 05-04-2025 Sodium [Moles/Vol] 133 mmol/L 133-145 [facility] Squamous epithelial cells de tection in urine sediment by light microscopyOrdered By: Radha Norman on 05-04-2025 Epithelial cells.squamous LM Ql (Urine sed) 0-5 SEEN /hpf 5-10 [facility] Total proteinOrdered By: Kavya Norman on 05-04-2025 Protein [Mass/Vol] 6.7 g/dL 5.9-8.4 [facility] Transitional cells detection in urine sediment by light microscopyOrdered By: Radha Norman on 05-04-2025 Transitional cells LM Ql (Urine sed) 0-5 SEEN /hpf 0-5 [facility] Urinalysis, Completeon 05-04 BACTERIA 2+ /hpf Normal None Seen [facility] Comment on above: Order Comment: COLOR OF URINE MAY AFFECT DIPSTICK RESULTS.FITNESS DIRECTOR TO SPECIFY Performed By: #### L 400.0001, M1.2199 ####[facility] [address] [place], [place], [id number] EPI,SQUAMOUS 0-5 SEEN Normal 5-10 [facility] Comment on above: Order Comment: COLOR OF URINE MAY AFFECT DIPSTICK RESULTS.FITNESS DIRECTOR TO SPECIFY Performed By: #### L 400.0001, M1.2199 ####[facility] [address] [place], [address] EPI,TRANSITION 0-5 SEEN Normal 0-5 [facility] Comment on above: Order Comment: COLOR OF URINE MAY AFFECT DIPSTICK RESULTS.FITNESS DIRECTOR TO SPECIFY Performed By: #### L 400.0001, M100.2200 ####[facility] [address] [place], [address] Mucus Ql (Urine sed) 1+ /hpf Normal [facility] Comment on above: Order Comment: COLOR OF URINE MAY AFFECT DIPSTICK RESULTS.FITNESS DIRECTOR TO SPECIFY Performed By: #### L 400.0001, M100.2200 ####[facility] [address] [place], [address] WBC 5-10 SEEN Normal 0-5 [facility] Comment on above: Order Comment: COLOR OF URINE MAY AFFECT DIPSTICK RESULTS.FITNESS DIRECTOR TO SPECIFY Performed By: #### L 400.0001, M100.2200 ####[facility] [address] [place], [address] RBC > 100 SEEN Normal 0-5 [facility] Comment on above: Order Comment: COLOR OF URINE MAY AFFECT DIPSTICK RESULTS.FITNESS DIRECTOR TO SPECIFY Performed By: #### L 400.0001, M100.2200 ####[facility] [address] [place], [address] Urine clarityOrdered By: Kavya Norman on 05-04-2025 Clarity (U) Cloudy Clear [facility] Urine color determinationOrd ered By: Radha Norman on 05-04-2025 Color (U) Mirna Yellow [facility] Urine cultureOrdered By: Kavya Norman on 05-04-2025 Bacteria identified Cx Nom (U) Positive Abnormal [facility] Bacteria identified Cx Nom (U) GPC Poss Enterococcus sp Abnormal [facility] Urine glucose detectionOrder ed By: Radha Norman on 05-04-2025 Glucose Ql (U) Normal mg/dl Normal [facility] Urine leukocyte esterase det ection by dipstickOrdered By: Radha Norman on 05-04-2025 Leukocyte esterase Test strip Ql (U) 25 /ul High Negative [facility] Urine pHOrdered By: Radha gonzalez on 05-04-2025 pH (U) 6.0 [pH] 5.0 - 8.0 [facility] Urine sediment bacteria coun t by microscopy (number/high power field)Ordered By: Radha Norman on 05-04-2025 Bacteria LM.HPF (Urine sed) [#/Area] 2 /[HPF] None Seen [facility] Urine specific gravity measu rementOrdered By: Radha Norman on 05-04-2025 Specific gravity (U) [Rel density] 1.015 1.002-1.030 [facility] Urine urobilinogen measureme ntOrdered By: Radha Norman on 05-04-2025 Urobilinogen Ql (U) 4 mg/dl High Normal [facility] White blood cell (WBC) count Ordered By: Radha Norman on 05-04-2025 WBC (Bld) [#/Vol] 0.8 10*3/uL Low 4.4-11.0 [facility] Comment on above: CRITICAL VALUE HOFFMAN D TO PHILLIP MCKENZIE05/04/25 2009 Leia Berger.RESULTS READ BACK BY SAME. White blood cell countOrdere d By: Radha Norman on 05-04-2025 White blood cell count 5-10 SEEN /hpf 0-5 [facility] Absolute lymphocyte countOrd ered By: Imani Persaud on 05-03-2025 Lymphocytes Auto (Unsp spec) [#/Vol] 0.40 10*3/uL Low 0.83-4.51 [facility] Absolute neutrophil countOrd ered By: Imani Persaud on 05-03-2025 Neutrophils (Bld) [#/Vol] 0.0 10*3/uL Low 2.0-7.7 [facility] Anion gap in Serum or Plasma Ordered By: Imani Persaud on 05-03-2025 Anion gap [Moles/Vol] 12 mmol/L 5-15 [facility] Automated lymphocyte count a s percentage of total leukocytesOrdered By: Imani Persaud on 05-03-2025 Lymphocytes/100 WBC Auto (Unsp spec) 80.0 % High 19- [facility] [id number] 05-03-2025 DIRECT SUSHMA NEG w/POLYSPECIFIC Normal NEGATIVE [facility] Comment on above: Performed By: #### B 95282-3 ####[facility] [address] [place], [address] BUN/creatinine ratioOrdered By: Imani Persaud on 05-03-2025 Urea nitrogen/Creatinine [Mass ratio] 16.5 mg/mg - [facility] Basic Metabolic Profile (BMP )on 05-03-2025 BUN/CRE 16.5 RATIO Normal 09-03 [facility] Comment on above: Performed By: #### L 500.2500, L501.2300, L100.0100, L501.5200 ####[facility] [address] [place], [address] Calcium [Mass/Vol] 8.7 mg/dL Normal 7.6-11.0 [facility] Comment on above: Performed By: #### L 500.2500, L501.2300, L100.0100, L501.5200 ####[facility] [address] [place], [address] Chloride [Moles/Vol] 101 mmol/L Normal 98-108 [facility] Comment on above: Performed By: #### L 500.2500, L501.2300, L100.0100, L501.5200 ####[facility] [address] [place], [address] CO2 [Moles/Vol] 20.0 mmol/L Low 21.0-32.0 [facility] Comment on above: Performed By: #### L 500.2500, L501.2300, L100.0100, L501.5200 ####[facility] [address] [place], [address] Creatinine [Mass/Vol] 0.59 mg/dL Low 0.70-1.20 [facility] Comment on above: Performed By: #### L 500.2500, L501.2300, L100.0100, L501.5200 ####[facility] [address] [place], [address] ECRCL 130.42 ml/min Normal 50-250 [facility] Comment on above: Performed By: #### L 500.2500, L501.2300, L100.0100, L501.5200 ####[facility] [address] [place], [address] GAP 12 Normal 5-15 [facility] Comment on above: Performed By: #### L 500.2500, L501.2300, L100.0100, L501.5200 ####[facility] [address] [place], [address] GFR/1.73 sq M.predicted among non-blacks MDRD (S/P/Bld) [Vol rate/Area] 107 mL/min/{1.73_m2} Normal >60 [facility] Comment on above: Result Comment: mL/m in/1.73m2 CKD-EPI Creatinine Equation (2020) Performed By: #### L 500.2500, L501.2300, L100.0100, L501.5200 ####[facility] [address] [place], [address] Glucose [Mass/Vol] 123 mg/dL High 70-99 [facility] Comment on above: Performed By: #### L 500.2500, L501.2300, L100.0100, L501.5200 ####[facility] [address] [place], [address] Potassium [Moles/Vol] 4.1 mmol/L Normal 3.3-5.1 [facility] Comment on above: Performed By: #### L 500.2500, L501.2300, L100.0100, L501.5200 ####[facility] [address] [place], [address] Sodium [Moles/Vol] 134 mmol/L Normal 133-145 [facility] Comment on above: Performed By: #### L 500.2500, L501.2300, L100.0100, L501.5200 ####[facility] [address] [place], [address] Urea nitrogen [Mass/Vol] 10 mg/dL Normal 4-19 [facility] Comment on above: Performed By: #### L 500.2500, L501.2300, L100.0100, L501.5200 ####[facility] [address] [place], [address] Basophil percentageOrdered B y: Imani Persaud on 05-03-2025 Basophils/100 WBC (Bld) 2.0 % High 0-1 [facility] Bilirubin Test strip Ql (U)O rdered By: Delmis Corral on 05-03-2025 Bilirubin Ql (U) 3 mg/dL High Negative [facility] Comment on above: COLOR OF URINE MAY A FFECT DIPSTICK RESULTS. Bilirubin directOrdered By: Delmis Corral on 05-03-2025 Bilirubin.direct [Mass/Vol] 0.53 mg/dL High 0.00-0.30 [facility] Bilirubin, totalOrdered By: Delmis Corral on 05-03-2025 Bilirubin [Mass/Vol] 1.12 mg/dL 0.00-1.30 [facility] Blood manual differential co mment interpretation (narrative result)Ordered By: Imani Persaud on 05-03-2025 Manual differential comment Bassam (Bld) [Interp] SCANNED [facility] Comment on above: LEUKOCYTOPENIA NOTED Carbon dioxide, total [Moles /volume] in Central venous bloodOrdered By: Imani Persaud on 05-03-2025 CO2 [Moles/Vol] 20.0 mmol/L Low 21.0-32.0 [facility] Chloride assayOrdered By: Jonatan Persaud on 05-03-2025 Chloride [Moles/Vol] 101 mmol/L 98-108 [facility] Eosinophil percentageOrdered By: Imani Persaud on 05-03-2025 Eosinophils/100 WBC (Bld) 6.0 % High 0-5 [facility] Erythrocyte distribution wid th ratioOrdered By: Imani Persaud on 05-03-2025 Erythrocyte distribution width (RBC) [Ratio] 12.5 % 11.6-14.6 [facility] Erythrocyte distribution wid th standard deviationOrdered By: Jenniferira Persaud on 05-03-2025 Erythrocyte distribution width (RBC) [Ratio] 36.5 fl 35.1-43.9 [facility] Glomerular filtration rate ( GFR) estimation/1.73 sq m using serum, plasma, or whole bOrdered By: Imani Persaud on 05-03-2025 GFR/1.73 sq M.predicted among non-blacks MDRD (S/P/Bld) [Vol rate/Area] 107 mL/min/{1.73_m2} >60 [facility] Comment on above: mL/min/1.73m2 CKD-EP I Creatinine Equation (2020) Hematocrit Auto (Bld) [Volum e fraction]Ordered By: Imani Persaud on 05-03-2025 Hematocrit (Bld) [Volume fraction] 32.4 % Low 37-47 [facility] Hemoglobin measurementOrdere d By: Imani Persaud on 05-03-2025 Hemoglobin (Bld) [Mass/Vol] 11.6 g/dL Low 12.0-15.0 [facility] Immature granulocytes/100 WB C Auto (Bld)Ordered By: Imani Persaud on 05-03-2025 Immature granulocytes/100 WBC (Bld) 0.000 % 0.0-0.9 [facility] Comment on above: IG% - Immature Granu locytes (promyelocytes, myelocytes and metamyelocytes) > 1% indicates that a LEFT SHIFT is Present. Immature platelet percentage Ordered By: Delmis Corral on 05-03-2025 Platelets reticulated/100 platelets Auto (Bld) 4.4 % 1.0-7.9 [facility] Comment on above: Low PLT + Low [...] Ketones Ql (U) 5 mg/dl High Negative [facility] LDHon 05-03-2025 LDH 216 U/L Normal 84-246 [facility] Comment on above: Order Comment: ANNMARIE Angulo ADD ON1 Result Comment: Hemo lysis present, Results??could be affected.?? Performed By: #### L 504.2610, L100.9950, L3100.1850 ####[facility] [address] [place], [place], [id number] Laboratory - Chemistry and C hemistry - challengeOrdered By: Delmis Corral on 05-03-2025 AST [Catalytic activity/Vol] 40 U/L High <32 [facility] Lactate dehydrogenase (LDH) measurementOrdered By: Delmis Corral on 05-03-2025 LDH [Catalytic activity/Vol] 216 U/L 84-246 [facility] Comment on above: Hemolysis present, R esults could be affected. Liver Profileon 05-03-2025 Albumin [Mass/Vol] 3.5 g/dL Normal 3.5-5.0 [facility] Comment on above: Order Comment: MARIEL Angulo ADD ON Performed By: #### L 500.3400 ####[facility] [address] [place], [place], [address] ALK PHOS 97 U/L Normal 35-104 [facility] Comment on above: Order Comment: MARIEL Angulo ADD ON Performed By: #### L 500.3400 ####[facility] [address] [place], [place], [address] ALT [Catalytic activity/Vol] 44 U/L High <=34 [facility] Comment on above: Order Comment: PLEAS E ADD ON Performed By: #### L 500.3400 ####[facility] [address] [place], [address] AST [Catalytic activity/Vol] 40 U/L High <=31 [facility] Comment on above: Order Comment: PLEAS E ADD ON Performed By: #### L 500.3400 ####[facility] [address] [place], [address] Bilirubin [Mass/Vol] 1.12 mg/dL Normal 0.00-1.30 [facility] Comment on above: Order Comment: PLEAS E ADD ON Performed By: #### L 500.3400 ####[facility] [address] [place], [address] Bilirubin.direct [Mass/Vol] 0.53 mg/dL High 0.00-0.30 [facility] Comment on above: Order Comment: PLEAS E ADD ON Performed By: #### L 500.3400 ####[facility] [address] [place], [address] Globulin (S) [Mass/Vol] 3.5 g/dL Normal 2.2-4.2 [facility] Comment on above: Order Comment: PLEAS E ADD ON Performed By: #### L 500.3400 ####[facility] [address] [place], [address] T PROT 6.9 g/dL Normal 5.9-8.4 [facility] Comment on above: Order Comment: PLEAS E ADD ON Performed By: #### L 500.3400 ####[facility] [address] [place], [address] MCV (mean corpuscular volume ) determinationOrdered By: Imani Persaud on 05-03-2025 MCV (RBC) [Entitic vol] 80.6 fL Low 81-99 [facility] Magnesiumon 05-03-2025 Magnesium [Mass/Vol] 1.9 mg/dL Normal 1.5-2.2 [facility] Comment on above: Performed By: #### L 500.2500, L501.2300, L100.0100, L501.5200 ####[facility] [address] [place], [address] Magnesium measurement (mass/ volume)Ordered By: Imani Persaud on 05-03-2025 Magnesium (Unsp spec) [Mass/Vol] 1.9 mg/dL 1.5-2.2 [facility] Mean corpuscular hemoglobin (MCH) determinationOrdered By: Imani Persaud on 05-03-2025 MCH (RBC) [Entitic mass] 28.9 pg 27.0-32.0 [facility] Mean corpuscular hemoglobin concentration (MCHC) determinationOrdered By: Imani Persaud on 05-03-2025 MCHC (RBC) [Mass/Vol] 35.8 g/dL 32-36 [facility] Mean platelet volume determi nationOrdered By: Imani Persaud on 05-03-2025 Platelet mean volume (Bld) [Entitic vol] 11.4 fL 6.2-12.0 [facility] Microscopic analysis of urin e for red blood cells (RBC)Ordered By: Delmis Corral on 05-03-2025 Microscopic analysis of urine for red blood cells (RBC) > 100 SEEN /hpf 0-5 [facility] Monocyte percentageOrdered B y: Imani Persaud on 05-03-2025 Monocytes/100 WBC (Bld) 6.0 % 0-10 [facility] Mucus LM Ql (Urine sed)Order ed By: Delmis Corral on 05-03-2025 Mucus Ql (Urine sed) 0 SEEN /hpf [facility] Neutrophil percentageOrdered By: Imani Persaud on 05-03-2025 Neutrophils/100 WBC (Bld) 6.0 % Low 47-70 [facility] Nitrite Test strip Ql (U)Ord ered By: Delmis Corral on 05-03-2025 Nitrite Ql (U) Positive High Negative [facility] Nucleated red blood cell per centageOrdered By: Imani Persaud on 05-03-2025 Nucleated RBC/100 WBC (Bld) [Ratio] 0 % 0-5 [facility] Oncology Visit Reporton 04-15 Oncology Visit Report Normal [facility] Phosphoruson 05-03-2025 Phosphate [Mass/Vol] 2.1 mg/dL Low 2.7-4.5 [facility] Comment on above: Performed By: #### L 500.2500, L501.2300, L100.0100, L501.5200 ####[facility] [address] [place], [address] Platelet countOrdered By: Jonatan Persaud on 05-03-2025 Platelets (Bld) [#/Vol] 28 10*3/uL Low 150-450 [facility] Comment on above: CRITICAL VALUE HOFFMAN D TO [id number]/19/25 1126 [address].RESULTS READ BACK BY SAME. Platelet estimateOrdered By: Imani Persaud on 05-03-2025 Platelets LM Ql (Bld) MKD DEC ADEQ [facility] Potassium measurement (mass/ volume)Ordered By: Imani Persaud on 05-03-2025 Potassium (Unsp spec) [Mass/Vol] 4.1 mmol/L 3.3-5.1 [facility] Protein Test strip Ql (U)Ord ered By: Delmis Corral on 05-03-2025 Protein Ql (U) 100 mg/dl High Negative [facility] RBC Auto (Bld) [#/Vol]Ordere d By: Imani Persaud on 05-03-2025 RBC (Bld) [#/Vol] 4.02 10*6/uL Low 4.2-5.4 [facility] Retic Panelon 05-03-2025 IM RET FRACTION 0.90 Low 3.00-15.90 [facility] Comment on above: Order Comment: MARIEL Angulo ADD ON Performed By: #### L 504.2610, L100.9950, L3100.1850 ####[facility] [address] [place], [address] IPF 4.4 Normal 1.0-7.9 [facility] Comment on above: Order Comment: PLEAS E [...] Performed By: #### L 504.2610, L100.9950, L3100.1850 ####[facility] [address] [place], [address] RET-HE 36.0 pg High 30-35 [facility] Comment on above: Order Comment: MARIEL E ADD ON Performed By: #### L 504.2610, L100.9950, L3100.1850 ####[facility] [address] [place], [address] Retic Count 0.45 Low 0.5-1.5 [facility] Comment on above: Order Comment: PLEBEATRIZ E ADD ON Performed By: #### L 504.2610, L100.9950, L3100.1850 ####[facility] [address] [place], [address] Reticulocyte hemoglobin equi valent (RET-He) measurementOrdered By: Delmis Corral on 05-03-2025 Hemoglobin (Reticulocytes) [Entitic mass] 36.0 pg High 30-35 [facility] Reticulocytes Auto (Bld) [#/ Vol]Ordered By: Delmis Corral on 05-03-2025 Reticulocytes/100 RBC (Bld) 0.45 % Low 0.5-1.5 [facility] Review by pathologistOrdered By: Imani Persaud on 05-03-2025 Pathologist review Bassam (Unsp spec) [Interp] March [facility] Serum creatinine measurement (mass/volume)Ordered By: Imani Persaud on 05-03-2025 Creatinine [Mass/Vol] 0.59 mg/dL Low 0.70-1.20 [facility] Serum globulin measurementOr dered By: Delmis Corral on 05-03-2025 Globulin (S) [Mass/Vol] 3.5 g/dL 2.2-4.2 [facility] Serum glucose measurement (m ass/volume)Ordered By: Imani Persaud on 05-03-2025 Glucose [Mass/Vol] 123 mg/dL High 70-99 [facility] Serum or plasma alanine del rio otransferase (ALT) measurementOrdered By: Delmis Corral on 05-03-2025 ALT [Catalytic activity/Vol] 44 U/L High <35 [facility] Serum or plasma albumin cass urement (mass/volume)Ordered By: Delmis Corral on 05-03-2025 Albumin [Mass/Vol] 3.5 g/dL 3.5-5.0 [facility] Serum or plasma alkaline tre sphatase measurementOrdered By: Delmis Corral on 05-03-2025 ALP [Catalytic activity/Vol] 97 U/L 35-104 [facility] Serum or plasma calcium cass urement (mass/volume)Ordered By: Imani Persaud on 05-03-2025 Calcium [Mass/Vol] 8.7 mg/dL 7.6-11.0 [facility] Serum or plasma urea nitroge n measurement (mass/volume)Ordered By: Imani Persaud on 05-03-2025 Urea nitrogen [Mass/Vol] 10 mg/dL 4-19 [facility] Sodium levelOrdered By: Jennifer Persaud on 05-03-2025 Sodium [Moles/Vol] 134 mmol/L 133-145 [facility] Squamous epithelial cells de tection in urine sediment by light microscopyOrdered By: Delmis Corral on 05-03-2025 Epithelial cells.squamous LM Ql (Urine sed) 0-5 SEEN /hpf 5-10 [facility] Total proteinOrdered By: Vance Corral on 05-03-2025 Protein [Mass/Vol] 6.9 g/dL 5.9-8.4 [facility] Urinalysis, Completeon 05-03 BACTERIA RARE Normal None Seen [facility] Comment on above: Order Comment: COLOR OF URINE MAY AFFECT DIPSTICK RESULTS.FITNESS DIRECTOR TO SPECIFY Performed By: #### L 400.0001 ####[facility] [address] [place], [address] EPI,SQUAMOUS 0-5 SEEN Normal 5-10 [facility] Comment on above: Order Comment: COLOR OF URINE MAY AFFECT DIPSTICK RESULTS.FITNESS DIRECTOR TO SPECIFY Performed By: #### L 400.0001 ####[facility] [address] [place], [address] RBC > 100 SEEN Normal 0-5 [facility] Comment on above: Order Comment: COLOR OF URINE MAY AFFECT DIPSTICK RESULTS.FITNESS DIRECTOR TO SPECIFY Performed By: #### L 400.0001 ####[facility] [address] [place], [address] Mucus Ql (Urine sed) 0 SEEN Normal [facility] Comment on above: Order Comment: COLOR OF URINE MAY AFFECT DIPSTICK RESULTS.FITNESS DIRECTOR TO SPECIFY Performed By: #### L 400.0001 ####[facility] [address] [place], [address] WBC 0 SEEN Normal 0-5 [facility] Comment on above: Order Comment: COLOR OF URINE MAY AFFECT DIPSTICK RESULTS.FITNESS DIRECTOR TO SPECIFY Performed By: #### L 400.0001 ####[facility] [address] [place], [address] Urine clarityOrdered By: Vance Corral on 05-03-2025 Clarity (U) Cloudy Clear [facility] Urine color determinationOrd ered By: Delmis Corral on 05-03-2025 Color (U) Mirna Yellow [facility] Urine glucose detectionOrder ed By: Delmis Corral on 05-03-2025 Glucose Ql (U) Normal mg/dl Normal [facility] Urine leukocyte esterase det ection by dipstickOrdered By: Delmis Corral on 05-03-2025 Leukocyte esterase Test strip Ql (U) 25 /ul High Negative [facility] Urine pHOrdered By: Delmis solomon on 05-03-2025 pH (U) 6.0 [pH] 5.0 - 8.0 [facility] Urine sediment bacteria coun t by microscopy (number/high power field)Ordered By: Delmis Corral on 05-03-2025 Bacteria LM.HPF (Urine sed) [#/Area] RARE /hpf None Seen [facility] Urine specific gravity measu rementOrdered By: Delmis Corral on 05-03-2025 Specific gravity (U) [Rel density] 1.010 1.002-1.030 [facility] Urine urobilinogen measureme ntOrdered By: Delmis Corral on 05-03-2025 Urobilinogen Ql (U) 12 mg/dl High Normal [facility] White blood cell (WBC) count Ordered By: Imani Persaud on 05-03-2025 WBC (Bld) [#/Vol] 0.5 10*3/uL Low 4.4-11.0 [facility] Comment on above: CRITICAL VALUE HOFFMAN D TO [id number]/19/25 1126 [address].RESULTS READ BACK BY SAME. White blood cell countOrdere d By: Delmis Corral on 05-03-2025 White blood cell count 0 SEEN /hpf 0-5 [facility] Urine Cultureon 04-30-2025 URC Mixed Gram Positive Organisms [place] Count 25,000-50,000 [facility] Mixed contaminants. Submit a new specimen if indicated. Normal [facility] Comment on above: Performed By: #### L 400.0001, M100.2200 ####[facility] [address] [place], [address] Absolute lymphocyte countOrd ered By: ED PROVIDER on 04-28-2025 Lymphocytes Auto (Unsp spec) [#/Vol] 0.75 10*3/uL Low 0.83-4.51 [facility] Absolute neutrophil countOrd ered By: ED PROVIDER on 04-28-2025 Neutrophils (Bld) [#/Vol] 3.5 10*3/uL 2.0-7.7 [facility] Activated partial thrombopla stin time (aPTT) in platelet poor plasma by coagulation aOrdered By: ED PROVIDER on 04-28-2025 aPTT Coag (PPP) [Time] 29.8 s 24.1-36.2 [facility] Anion gap in Serum or Plasma Ordered By: ED PROVIDER on 04-28-2025 Anion gap [Moles/Vol] 11 mmol/L 5-15 [facility] Automated lymphocyte count a s percentage of total leukocytesOrdered By: ED PROVIDER on 04-28-2025 Lymphocytes/100 WBC Auto (Unsp spec) 17.3 % Low 19-41 [facility] BUN/creatinine ratioOrdered By: ED PROVIDER on 04-28-2025 Urea nitrogen/Creatinine [Mass ratio] 18.8 mg/mg 10-20 [facility] Basophil percentageOrdered B y: ED PROVIDER on 04-28-2025 Basophils/100 WBC (Bld) 0.2 % 0-1 [facility] Bilirubin Test strip Ql (U)O rdered By: Girish Mcgarry on 04-28-2025 Bilirubin Ql (U) Negative Negative [facility] Bilirubin, totalOrdered By: ED PROVIDER on 04-28-2025 Bilirubin [Mass/Vol] 1.02 mg/dL 0.00-1.30 [facility] Blood cultureOrdered By: Rodrigo Mcgarry on 04-28-2025 Bacteria identified Cx Nom (Bld) No growth in 5 days. [facility] Blood cultureOrdered By: ED PROVIDER on 04-28-2025 Bacteria identified Cx Nom (Bld) No growth in 5 days. [facility] CBC W/Diff, Automatedon 04-15 RED CELL MORPH NORM C+C Normal NORM C C [facility] Comment on above: Order Comment: Comme nts: Place Priority paraprofessional interpreter CBC Tube Performed By: #### L 300.4310, L503.6005, L500.4050, M200.1000, L300.3900, L100.0100 ####[facility] [address] [place], [address] PLT EST MOD DEC Normal ADEQ [facility] Comment on above: Order Comment: Comme nts: Place Priority paraprofessional interpreter CBC Tube Performed By: #### L 300.4310, L503.6005, L500.4050, M200.1000, L300.3900, L100.0100 ####[facility] [address] [place], [address] Carbon dioxide, total [Moles /volume] in Central venous bloodOrdered By: ED PROVIDER on 04-28-2025 CO2 [Moles/Vol] 18.6 mmol/L Low 21.0-32.0 [facility] Chest PA and Lateralon 04-28 Chest PA and Lateral Normal [facility] Chloride assayOrdered By: ED PROVIDER on 04-28-2025 Chloride [Moles/Vol] 103 mmol/L 98-108 [facility] Comprehensive Metabolic Prof ilon 04-28-2025 Albumin [Mass/Vol] 3.4 g/dL Low 3.5-5.0 [facility] Comment on above: Performed By: #### L 300.4310, L503.6005, L500.4050, M200.1000, L300.3900, L100.0100 ####[facility] [address] [place], [address] Albumin/Globulin [Mass ratio] 1.1 {ratio} Normal 0.9-2.4 [facility] Comment on above: Performed By: #### L 300.4310, L503.6005, L500.4050, M200.1000, L300.3900, L100.0100 ####[facility] [address] [place], [address] ALK PHOS 93 U/L Normal 35-104 [facility] Comment on above: Performed By: #### L 300.4310, L503.6005, L500.4050, M200.1000, L300.3900, L100.0100 ####[facility] [address] [place], [address] ALT [Catalytic activity/Vol] 18 U/L Normal <=34 [facility] Comment on above: Performed By: #### L 300.4310, L503.6005, L500.4050, M200.1000, L300.3900, L100.0100 ####[facility] [address] [place], [address] AST [Catalytic activity/Vol] 21 U/L Normal <=31 [facility] Comment on above: Performed By: #### L 300.4310, L503.6005, L500.4050, M200.1000, L300.3900, L100.0100 ####[facility] [address] [place], [address] Bilirubin [Mass/Vol] 1.02 mg/dL Normal 0.00-1.30 [facility] Comment on above: Performed By: #### L 300.4310, L503.6005, L500.4050, M200.1000, L300.3900, L100.0100 ####[facility] [address] [place], [address] BUN/CRE 18.8 RATIO Normal 10-20 [facility] Comment on above: Performed By: #### L 300.4310, L503.6005, L500.4050, M200.1000, L300.3900, L100.0100 ####[facility] [address] [place], [address] Calcium [Mass/Vol] 8.4 mg/dL Normal 7.6-11.0 [facility] Comment on above: Performed By: #### L 300.4310, L503.6005, L500.4050, M200.1000, L300.3900, L100.0100 ####[facility] [address] [place], [address] Chloride [Moles/Vol] 103 mmol/L Normal 98-108 [facility] Comment on above: Performed By: #### L 300.4310, L503.6005, L500.4050, M200.1000, L300.3900, L100.0100 ####[facility] [address] [place], [address] CO2 [Moles/Vol] 18.6 mmol/L Low 21.0-32.0 [facility] Comment on above: Performed By: #### L 300.4310, L503.6005, L500.4050, M200.1000, L300.3900, L100.0100 ####[facility] [address] [place], [address] Creatinine [Mass/Vol] 0.57 mg/dL Low 0.70-1.20 [facility] Comment on above: Performed By: #### L 300.4310, L503.6005, L500.4050, M200.1000, L300.3900, L100.0100 ####[facility] [address] [place], [address] ECRCL 136.93 ml/min Normal 50-250 [facility] Comment on above: Performed By: #### L 300.4310, L503.6005, L500.4050, M200.1000, L300.3900, L100.0100 ####[facility] [address] [place], [address] GAP 11 Normal 5-15 [facility] Comment on above: Performed By: #### L 300.4310, L503.6005, L500.4050, M200.1000, L300.3900, L100.0100 ####[facility] [address] [place], [address] GFR/1.73 sq M.predicted among non-blacks MDRD (S/P/Bld) [Vol rate/Area] 108 mL/min/{1.73_m2} Normal >60 [facility] Comment on above: Result Comment: mL/m in/1.73m2 CKD-EPI Creatinine Equation (2020) Performed By: #### L 300.4310, L503.6005, L500.4050, M200.1000, L300.3900, L100.0100 ####[facility] [address] [place], [address] Globulin (S) [Mass/Vol] 3.2 g/dL Normal 2.2-4.2 [facility] Comment on above: Performed By: #### L 300.4310, L503.6005, L500.4050, M200.1000, L300.3900, L100.0100 ####[facility] [address] [place], [address] Glucose [Mass/Vol] 130 mg/dL High 70-99 [facility] Comment on above: Performed By: #### L 300.4310, L503.6005, L500.4050, M200.1000, L300.3900, L100.0100 ####[facility] [address] [place], [address] Potassium [Moles/Vol] 4.0 mmol/L Normal 3.3-5.1 [facility] Comment on above: Performed By: #### L 300.4310, L503.6005, L500.4050, M200.1000, L300.3900, L100.0100 ####[facility] [address] [place], [address] Sodium [Moles/Vol] 132 mmol/L Low 133-145 [facility] Comment on above: Performed By: #### L 300.4310, L503.6005, L500.4050, M200.1000, L300.3900, L100.0100 ####[facility] [address] [place], [address] T PROT 6.6 g/dL Normal 5.9-8.4 [facility] Comment on above: Performed By: #### L 300.4310, L503.6005, L500.4050, M200.1000, L300.3900, L100.0100 ####[facility] [address] [place], [place], [address] Urea nitrogen [Mass/Vol] 11 mg/dL Normal 4-19 [facility] Comment on above: Performed By: #### L 300.4310, L503.6005, L500.4050, M200.1000, L300.3900, L100.0100 ####[facility] [address] [place], [place], [address] Emergency Department Summary on 04-28-2025 Emergency Department Summary Normal [facility] Eosinophil percentageOrdered By: ED PROVIDER on 04-28-2025 Eosinophils/100 WBC (Bld) 0.2 % 0-5 [facility] Erythrocyte distribution wid th ratioOrdered By: ED PROVIDER on 04-28-2025 Erythrocyte distribution width (RBC) [Ratio] 13.0 % 11.6-14.6 [facility] Erythrocyte distribution wid th standard deviationOrdered By: ED PROVIDER on 04-28-2025 Erythrocyte distribution width (RBC) [Ratio] 39.2 fl 35.1-43.9 [facility] Erythrocyte morphology asses smentOrdered By: ED PROVIDER on 04-28-2025 RBC morphology finding Nom (Bld) NORM C+C NORMAL NORM C&C [facility] Glomerular filtration rate ( GFR) estimation/1.73 sq m using serum, plasma, or whole bOrdered By: ED PROVIDER on 04-28-2025 GFR/1.73 sq M.predicted among non-blacks MDRD (S/P/Bld) [Vol rate/Area] 108 mL/min/{1.73_m2} >60 [facility] Comment on above: mL/min/1.73m2 CKD-EP I Creatinine Equation (2020) Hematocrit Auto (Bld) [Volum e fraction]Ordered By: ED PROVIDER on 04-28-2025 Hematocrit (Bld) [Volume fraction] 37.8 % 37-47 [facility] Hemoglobin measurementOrdere d By: ED PROVIDER on 04-28-2025 Hemoglobin (Bld) [Mass/Vol] 13.1 g/dL 12.0-15.0 [facility] Immature granulocytes/100 WB C Auto (Bld)Ordered By: ED PROVIDER on 04-28-2025 Immature granulocytes/100 WBC (Bld) 0.500 % 0.0-0.9 [facility] Comment on above: IG% - Immature Granu locytes (promyelocytes, myelocytes and metamyelocytes) > 1% indicates that a LEFT SHIFT is Present. International normalized rat io (INR) calculationOrdered By: ED PROVIDER on 04-28-2025 INR Coag (Bld) [Relative time] 1.2 {INR} [facility] Ketones Test strip Ql (U)Ord ered By: Girish Mcgarry on 04-28-2025 Ketones Ql (U) Negative Negative [facility] Laboratory - Chemistry and C hemistry - challengeOrdered By: ED PROVIDER on 04-28-2025 AST [Catalytic activity/Vol] 21 U/L <32 [facility] Lactic Acidon 04-28-2025 Lactate [Moles/Vol] mmol/L Normal 0.0-2.0 [facility] Comment on above: Order Comment: Y Performed By: #### L 300.4310, L503.6005, L500.4050, M200.1000, L300.3900, L100.0100 ####[facility] [address] [place], [address] Lactic acid measurementOrder ed By: Girish Mcgarry on 04-28-2025 Lactate [Moles/Vol] mmol/L 0.0-2.0 [facility] MCV (mean corpuscular volume ) determinationOrdered By: ED PROVIDER on 04-28-2025 MCV (RBC) [Entitic vol] 83.3 fL 81-99 [facility] Magnesiumon 04-28-2025 Magnesium [Mass/Vol] 1.8 mg/dL Normal 1.5-2.2 [facility] Comment on above: Performed By: #### L [id number], [id number] ####[facility] [address] [place], [address] Magnesium measurement (mass/ volume)Ordered By: Girish Mcgarry on 04-28-2025 Magnesium (Unsp spec) [Mass/Vol] 1.8 mg/dL 1.5-2.2 [facility] Mean corpuscular hemoglobin (MCH) determinationOrdered By: ED PROVIDER on 04-28-2025 MCH (RBC) [Entitic mass] 28.9 pg 27.0-32.0 [facility] Mean corpuscular hemoglobin concentration (MCHC) determinationOrdered By: ED PROVIDER on 04-28-2025 MCHC (RBC) [Mass/Vol] 34.7 g/dL 32-36 [facility] Mean platelet volume determi nationOrdered By: ED PROVIDER on 04-28-2025 Platelet mean volume (Bld) [Entitic vol] 10.6 fL 6.2-12.0 [facility] Microscopic analysis of urin e for red blood cells (RBC)Ordered By: Girish Mcgarry on 04-28-2025 Microscopic analysis of urine for red blood cells (RBC) > 100 SEEN /hpf 0-5 [facility] Monocyte percentageOrdered B y: ED PROVIDER on 04-28-2025 Monocytes/100 WBC (Bld) 0.5 % 0-10 [facility] Mucus LM Ql (Urine sed)Order ed By: Girish Mcgarry on 04-28-2025 Mucus Ql (Urine sed) 3+ /hpf [facility] Neutrophil percentageOrdered By: ED PROVIDER on 04-28-2025 Neutrophils/100 WBC (Bld) 81.3 % High 47-70 [facility] Nitrite Test strip Ql (U)Ord ered By: Girish Mcgarry on 04-28-2025 Nitrite Ql (U) Negative Negative [facility] Nucleated red blood cell per centageOrdered By: ED PROVIDER on 04-28-2025 Nucleated RBC/100 WBC (Bld) [Ratio] 0 % 0-5 [facility] Partial Thromboplast Timeon 04-28-2025 aPTT Coag (Bld) [Time] 29.8 s Normal 24.1-36.2 [facility] Comment on above: Performed By: #### L 300.6130, L503.6005, L500.4050, M200.1000, L300.3900, L100.0100 ####[facility] [address] [place], [address] Phosphoruson 04-28-2025 Phosphate [Mass/Vol] 2.1 mg/dL Low 2.7-4.5 [facility] Comment on above: Performed By: #### L 501.5200, L501.2300 ####[facility] [address] [place], [address] Platelet countOrdered By: ED PROVIDER on 04-28-2025 Platelets (Bld) [#/Vol] 67 10*3/uL Low 150-450 [facility] Platelet estimateOrdered By: ED PROVIDER on 04-28-2025 Platelets LM Ql (Bld) MOD DEC ADEQ [facility] Potassium measurement (mass/ volume)Ordered By: ED PROVIDER on 04-28-2025 Potassium (Unsp spec) [Mass/Vol] 4.0 mmol/L 3.3-5.1 [facility] Protein Test strip Ql (U)Ord ered By: Girish Mcgarry on 04-28-2025 Protein Ql (U) 100 mg/dl High Negative [facility] Prothrombin Time w/INRon INR Coag (PPP) [Relative time] 1.2 {INR} Normal [facility] Comment on above: Performed By: #### L 300.4310, L503.6005, L500.4050, M200.1000, L300.3900, L100.0100 ####[facility] [address] [place], [address] PT Coag (PPP) [Time] 15.3 s High 11.7-14.9 [facility] Comment on above: Performed By: #### L 300.4310, L503.6005, L500.4050, M200.1000, L300.3900, L100.0100 ####[facility] [address] [place], [address] Prothrombin timeOrdered By: ED PROVIDER on 04-28-2025 PT Coag (PPP) [Time] 15.3 s High 11.7-14.9 [facility] RBC Auto (Bld) [#/Vol]Ordere d By: ED PROVIDER on 04-28-2025 RBC (Bld) [#/Vol] 4.54 10*6/uL 4.2-5.4 [facility] Serum creatinine measurement (mass/volume)Ordered By: ED PROVIDER on 04-28-2025 Creatinine [Mass/Vol] 0.57 mg/dL Low 0.70-1.20 [facility] Serum globulin measurementOr dered By: ED PROVIDER on 04-28-2025 Globulin (S) [Mass/Vol] 3.2 g/dL 2.2-4.2 [facility] Serum glucose measurement (m ass/volume)Ordered By: ED PROVIDER on 04-28-2025 Glucose [Mass/Vol] 130 mg/dL High 70-99 [facility] Serum or plasma alanine del rio otransferase (ALT) measurementOrdered By: ED PROVIDER on 04-28-2025 ALT [Catalytic activity/Vol] 18 U/L <35 [facility] Serum or plasma albumin cass urement (mass/volume)Ordered By: ED PROVIDER on 04-28-2025 Albumin [Mass/Vol] 3.4 g/dL Low 3.5-5.0 [facility] Serum or plasma albumin/glob ulin mass ratioOrdered By: ED PROVIDER on 04-28-2025 Albumin/Globulin [Mass ratio] 1.1 {ratio} 0.9-2.4 [facility] Serum or plasma alkaline tre sphatase measurementOrdered By: ED PROVIDER on 04-28-2025 ALP [Catalytic activity/Vol] 93 U/L 35-104 [facility] Serum or plasma calcium cass urement (mass/volume)Ordered By: ED PROVIDER on 04-28-2025 Calcium [Mass/Vol] 8.4 mg/dL 7.6-11.0 [facility] Serum or plasma urea nitroge n measurement (mass/volume)Ordered By: ED PROVIDER on 04-28-2025 Urea nitrogen [Mass/Vol] 11 mg/dL 4-19 [facility] Sodium levelOrdered By: ED P VINITA on 04-28-2025 Sodium [Moles/Vol] 132 mmol/L Low 133-145 [facility] Squamous epithelial cells de tection in urine sediment by light microscopyOrdered By: Girish Mcgarry on 04-28-2025 Epithelial cells.squamous LM Ql (Urine sed) 5-10 SEEN /hpf 5- [facility] Total proteinOrdered By: ED PROVIDER on 04-28-2025 Protein [Mass/Vol] 6.6 g/dL 5.9-8.4 [facility] Urinalysis, Completeon 04-28 BACTERIA 2+ /hpf Normal None Seen [facility] Comment on above: Order Comment: COLOR OF URINE MAY AFFECT DIPSTICK RESULTS.CLEAN CATCH Performed By: #### L 400.0001, ####[facility] [address] [place], [address] EPI,SQUAMOUS 5-10 SEEN Normal 5-10 [facility] Comment on above: Order Comment: COLOR OF URINE MAY AFFECT DIPSTICK RESULTS.CLEAN CATCH Performed By: #### L 400.0001, ####[facility] [address] [place], [address] Mucus Ql (Urine sed) 3+ /hpf Normal [facility] Comment on above: Order Comment: COLOR OF URINE MAY AFFECT DIPSTICK RESULTS.CLEAN CATCH Performed By: #### L 400.0001, ####[facility] [address] [place], [address] RBC > 100 SEEN Normal 0-5 [facility] Comment on above: Order Comment: COLOR OF URINE MAY AFFECT DIPSTICK RESULTS.CLEAN CATCH Performed By: #### L 400.0001, ####[facility] [address] [place], [address] WBC >100 SEEN Normal 0-5 [facility] Comment on above: Order Comment: COLOR OF URINE MAY AFFECT DIPSTICK RESULTS.CLEAN CATCH Performed By: #### L 400.0001, ####[facility] [address] [place], [address] BILIRUBIN URINE Negative Normal Negative [facility] Comment on above: Order Comment: COLOR OF URINE MAY AFFECT DIPSTICK RESULTS.CLEAN CATCH Performed By: #### L 400.0001, .2199 ####[facility] [address] [place], [address] Clarity (U) Sl. Cloudy Normal Clear [facility] Comment on above: Order Comment: COLOR OF URINE MAY AFFECT DIPSTICK RESULTS.CLEAN CATCH Performed By: #### L 400.0001, ####[facility] [address] [place], [address] Color (U) Mirna Normal Yellow [facility] Comment on above: Order Comment: COLOR OF URINE MAY AFFECT DIPSTICK RESULTS.CLEAN CATCH Performed By: #### L 400.0001, ####[facility] [address] [place], [address] GLUCOSE, UR Normal Normal Normal [facility] Comment on above: Order Comment: COLOR OF URINE MAY AFFECT DIPSTICK RESULTS.CLEAN CATCH Performed By: #### L 400.0001, ####[facility] [address] [place], [address] KETONE UR Negative Normal Negative [facility] Comment on above: Order Comment: COLOR OF URINE MAY AFFECT DIPSTICK RESULTS.CLEAN CATCH Performed By: #### L 400.0001, ####[facility] [address] [place], [address] LEUK ESTERASE 100 /ul Abnormal Negative [facility] Comment on above: Order Comment: COLOR OF URINE MAY AFFECT DIPSTICK RESULTS.CLEAN CATCH Performed By: #### L 400.0001, ####[facility] [address] [place], [address] Nitrite Ql (U) Negative Normal Negative [facility] Comment on above: Order Comment: COLOR OF URINE MAY AFFECT DIPSTICK RESULTS.CLEAN CATCH Performed By: #### L 400.0001, .2199 ####[facility] [address] [place], [address] OCCULT BLOOD-UR 250 /ul Abnormal Negative [facility] Comment on above: Order Comment: COLOR OF URINE MAY AFFECT DIPSTICK RESULTS.CLEAN CATCH Performed By: #### L 400.0001, .2199 ####[facility] [address] [place], [address] pH UR 7.0 Normal 5.0 - 8.0 [facility] Comment on above: Order Comment: COLOR OF URINE MAY AFFECT DIPSTICK RESULTS.CLEAN CATCH Performed By: #### L 400.0001, ####[facility] [address] [place], [address] PROT DIPSTX 100 mg/dl Abnormal Negative [facility] Comment on above: Order Comment: COLOR OF URINE MAY AFFECT DIPSTICK RESULTS.CLEAN CATCH Performed By: #### L 400.0001, ####[facility] [address] [place], [address] SP.GR. DIPSTX 1.010 Normal 1.002-1.030 [facility] Comment on above: Order Comment: COLOR OF URINE MAY AFFECT DIPSTICK RESULTS.CLEAN CATCH Performed By: #### L 400.0001, ####[facility] [address] [place], [address] UROBILI 1 mg/dl Abnormal Normal [facility] Comment on above: Order Comment: COLOR OF URINE MAY AFFECT DIPSTICK RESULTS.CLEAN CATCH Performed By: #### L 400.0001, .2199 ####[facility] [address] [place], [address] Urine clarityOrdered By: Rodrigo Mcgarry on 04-28-2025 Clarity (U) Sl. Cloudy Clear [facility] Urine color determinationOrd ered By: Girish Mcgarry on 04-28-2025 Color (U) Mirna Yellow [facility] Urine cultureOrdered By: Rodrigo Mcgarry on 04-28-2025 Bacteria identified Cx Nom (U) Positive Abnormal [facility] Urine glucose detectionOrder ed By: Girish Mcgarry on 04-28-2025 Glucose Ql (U) Normal mg/dl Normal [facility] Urine leukocyte esterase det ection by dipstickOrdered By: Girish Mcgarry on 04-28-2025 Leukocyte esterase Test strip Ql (U) 100 /ul High Negative [facility] Urine pHOrdered By: Girish betancourt on 04-28-2025 pH (U) 7.0 [pH] 5.0 - 8.0 [facility] Urine sediment bacteria coun t by microscopy (number/high power field)Ordered By: Girish Mcgarry on 04-28-2025 Bacteria LM.HPF (Urine sed) [#/Area] 2 /[HPF] None Seen [facility] Urine specific gravity measu rementOrdered By: Girish Mcgarry on 04-28-2025 Specific gravity (U) [Rel density] 1.010 1.002-1.030 [facility] Urine urobilinogen measureme ntOrdered By: Girish Mcgarry on 04-28-2025 Urobilinogen Ql (U) 1 mg/dl High Normal [facility] White blood cell (WBC) count Ordered By: ED PROVIDER on 04-28-2025 WBC (Bld) [#/Vol] 4.3 10*3/uL Low 4.4-11.0 [facility] White blood cell countOrdere d By: Girish Mcgarry on 04-28-2025 White blood cell count >100 SEEN /hpf 0-5 [facility] Absolute lymphocyte countOrd ered By: Imani Persaud on 04-26-2025 Lymphocytes Auto (Unsp spec) [#/Vol] 1.16 10*3/uL 0.83-4.51 [facility] Absolute neutrophil countOrd ered By: Imani Persaud on 04-26-2025 Neutrophils (Bld) [#/Vol] 3.5 10*3/uL 2.0-7.7 [facility] Anion gap in Serum or Plasma Ordered By: Imani Persaud on 04-26-2025 Anion gap [Moles/Vol] 13 mmol/L 5- [facility] Automated lymphocyte count a s percentage of total leukocytesOrdered By: [facility] Pers[facility] on 04-26-2025 Lymphocytes/100 WBC Auto (Unsp spec) 24.1 % - [facility] BUN/creatinine ratioOrdered By: [facility] Cori on 04-26-2025 Urea nitrogen/Creatinine [Mass ratio] 15.3 mg/mg 10- [facility] Basophil percentageOrdered B y: Imani Persaud on 04-26-2025 Basophils/100 WBC (Bld) 0.2 % 0- [facility] Bilirubin, totalOrdered By: [facility] Pers[facility] on 04-26-2025 Bilirubin [Mass/Vol] 0.30 mg/dL 0.00-1.30 [facility] CBC W/Diff, Automatedon 04-15 Absolute Lymph 1.16 X10 3/uL Normal 0.83-4.51 [facility] Comment on above: Performed By: #### L 100.0100, L500.4050, L501.5200 ####[facility] [address] [place], [address] Absolute Neut 3.5 X10 3/uL Normal 2.0-7.7 [facility] Comment on above: Performed By: #### L 100.0100, L500.4050, L501.5200 ####[facility] [address] [place], [address] Basophils/100 WBC (Bld) 0.2 % Normal 0-1 [facility] Comment on above: Performed By: #### L 100.0100, L500.4050, L501.5200 ####[facility] [address] [place], [address] Eosinophils/100 WBC (Bld) 0.2 % Normal 0-5 [facility] Comment on above: Performed By: #### L 100.0100, L500.4050, L501.5200 ####[facility] [address] [place], [address] Erythrocyte distribution width (RBC) [Ratio] 12.8 % Normal 11.6-14.6 [facility] Comment on above: Performed By: #### L 100.0100, L500.4050, L501.5200 ####[facility] [address] [place], [address] Hematocrit (Bld) [Volume fraction] 38.3 % Normal 37-47 [facility] Comment on above: Performed By: #### L 100.0100, L500.4050, L501.5200 ####[facility] [address] [place], [address] Hemoglobin (Bld) [Mass/Vol] 13.4 g/dL Normal 12.0-15.0 [facility] Comment on above: Performed By: #### L 100.0100, L500.4050, L501.5200 ####[facility] [address] [place], [address] IG% 0.200 Normal 0.0-0.9 [facility] Comment on above: Result Comment: IG% - Immature Granulocytes (promyelocytes, myelocytes andmetamyelocytes) > 1% indicates that a LEFT SHIFT is Present. Performed By: #### L 100.0100, L500.4050, L501.5200 ####[facility] [address] [place], [address] Lymphocytes/100 WBC (Bld) 24.1 % Normal 19-41 [facility] Comment on above: Performed By: #### L 100.0100, L500.4050, L501.5200 ####[facility] [address] [place], [address] MCH (RBC) [Entitic mass] 29.4 pg Normal 27.0-32.0 [facility] Comment on above: Performed By: #### L 100.0100, L500.4050, L501.5200 ####[facility] [address] [place], [address] MCHC (RBC) [Mass/Vol] 35.0 g/dL Normal 32-36 [facility] Comment on above: Performed By: #### L 100.0100, L500.4050, L501.5200 ####[facility] [address] [place], [address] MCV (RBC) [Entitic vol] 84.0 fL Normal 81-99 [facility] Comment on above: Performed By: #### L 100.0100, L500.4050, L501.5200 ####[facility] [address] [place], [address] Monocytes/100 WBC (Bld) 2.5 % Normal 0-10 [facility] Comment on above: Performed By: #### L 100.0100, L500.4050, L501.5200 ####[facility] [address] [place], [address] Neutrophils/100 WBC (Bld) 72.8 % High 47-70 [facility] Comment on above: Performed By: #### L 100.0100, L500.4050, L501.5200 ####[facility] [address] [place], [address] Nucleated RBC (Bld) [#/Vol] 0 10*3/uL Normal 0-5 [facility] Comment on above: Performed By: #### L 100.0100, L500.4050, L501.5200 ####[facility] [address] [place], [address] Platelet mean volume (Bld) [Entitic vol] 10.0 fL Normal 6.2-12.0 [facility] Comment on above: Performed By: #### L 100.0100, L500.4050, L501.5200 ####[facility] [address] [place], [address] Platelets (Bld) [#/Vol] 126 10*3/uL Low 150-450 [facility] Comment on above: Performed By: #### L 100.0100, L500.4050, L501.5200 ####[facility] [address] [place], [address] RBC (Bld) [#/Vol] 4.56 10*6/uL Normal 4.2-5.4 [facility] Comment on above: Performed By: #### L 100.0100, L500.4050, L501.5200 ####[facility] [address] [place], [address] RDW SD 39.1 fl Normal 35.1-43.9 [facility] Comment on above: Performed By: #### L 100.0100, L500.4050, L501.5200 ####[facility] [address] [place], [address] WBC (Bld) [#/Vol] 4.8 10*3/uL Normal 4.4-11.0 [facility] Comment on above: Performed By: #### L 100.0100, L500.4050, L501.5200 ####[facility] [address] [place], [address] Absolute Neut Normal 2.0-7.7 [facility] Comment on above: Result Comment: DUPL ICATE TEST Performed By: #### L 100.0100, L501.2300 ####[facility] [address] [place], [address] HCT Normal 37-47 [facility] Comment on above: Result Comment: DUPL ICATE TEST Performed By: #### L 100.0100, L501.2300 ####[facility] [address] [place], [address] HGB Normal 12.0-15.0 [facility] Comment on above: Result Comment: DUPL ICATE TEST Performed By: #### L 100.0100, L501.2300 ####[facility] [address] [place], [address] MCH Normal 27.0-32.0 [facility] Comment on above: Result Comment: DUPL ICATE TEST Performed By: #### L 100.0100, L501.2300 ####[facility] [address] [place], [address] MCHC Normal 32-36 [facility] Comment on above: Result Comment: DUPL ICATE TEST Performed By: #### L 100.0100, L501.2300 ####[facility] [address] [place], [address] MCV Normal 81-99 [facility] Comment on above: Result Comment: DUPL ICATE TEST Performed By: #### L 100.0100, L501.2300 ####[facility] [address] [place], [address] NEUT% Normal 47-70 [facility] Comment on above: Result Comment: DUPL ICATE TEST Performed By: #### L 100.0100, L501.2300 ####[facility] [address] [place], [address] PLT Normal 150-450 [facility] Comment on above: Result Comment: DUPL ICATE TEST Performed By: #### L 100.0100, L501.2300 ####[facility] [address] [place], [address] RBC Normal 4.2-5.4 [facility] Comment on above: Result Comment: DUPL ICATE TEST Performed By: #### L 100.0100, L501.2300 ####[facility] [address] [place], [address] RDW CV Normal 11.6-14.6 [facility] Comment on above: Result Comment: DUPL ICATE TEST Performed By: #### L 100.0100, L501.2300 ####[facility] [address] [place], [address] RDW SD Normal 35.1-43.9 [facility] Comment on above: Result Comment: DUPL ICATE TEST Performed By: #### L 100.0100, L501.2300 ####[facility] [address] [place], [address] WBC Normal 4.4-11.0 [facility] Comment on above: Result Comment: DUPL ICATE TEST Performed By: #### L 100.0100, L501.2300 ####[facility] [address] [place], [address] Carbon dioxide, total [Moles /volume] in Central venous bloodOrdered By: Imani Persaud on 04-26-2025 CO2 [Moles/Vol] 20.2 mmol/L Low 21.0-32.0 [facility] Chloride assayOrdered By: Jonatan Persaud on 04-26-2025 Chloride [Moles/Vol] 104 mmol/L 98-108 [facility] Comprehensive Metabolic Prof ilon 04-26-2025 Albumin [Mass/Vol] 3.9 g/dL Normal 3.5-5.0 [facility] Comment on above: Performed By: #### L 100.0100, L500.4050, L501.5200 ####[facility] [address] [place], [address] Albumin/Globulin [Mass ratio] 1.1 {ratio} Normal 0.9-2.4 [facility] Comment on above: Performed By: #### L 100.0100, L500.4050, L501.5200 ####[facility] [address] [place], [address] ALK PHOS 108 U/L High 35-104 [facility] Comment on above: Performed By: #### L 100.0100, L500.4050, L501.5200 ####[facility] [address] [place], [address] ALT [Catalytic activity/Vol] 14 U/L Normal <=34 [facility] Comment on above: Performed By: #### L 100.0100, L500.4050, L501.5200 ####[facility] [address] [place], [address] AST [Catalytic activity/Vol] 13 U/L Normal <=31 [facility] Comment on above: Performed By: #### L 100.0100, L500.4050, L501.5200 ####[facility] [address] [place], [address] Bilirubin [Mass/Vol] 0.30 mg/dL Normal 0.00-1.30 [facility] Comment on above: Performed By: #### L 100.0100, L500.4050, L501.5200 ####[facility] [address] [place], [address] BUN/CRE 15.3 RATIO Normal 10-20 [facility] Comment on above: Performed By: #### L 100.0100, L500.4050, L501.5200 ####[facility] [address] [place], [address] Calcium [Mass/Vol] 9.8 mg/dL Normal 7.6-11.0 [facility] Comment on above: Performed By: #### L 100.0100, L500.4050, L501.5200 ####[facility] [address] [place], [address] Chloride [Moles/Vol] 104 mmol/L Normal 98-108 [facility] Comment on above: Performed By: #### L 100.0100, L500.4050, L501.5200 ####[facility] [address] [place], [address] CO2 [Moles/Vol] 20.2 mmol/L Low 21.0-32.0 [facility] Comment on above: Performed By: #### L 100.0100, L500.4050, L501.5200 ####[facility] [address] [place], [address] Creatinine [Mass/Vol] 0.57 mg/dL Low 0.70-1.20 [facility] Comment on above: Performed By: #### L 100.0100, L500.4050, L501.5200 ####[facility] [address] [place], [address] ECRCL 137.98 ml/min Normal 50-250 [facility] Comment on above: Performed By: #### L 100.0100, L500.4050, L501.5200 ####[facility] [address] [place], [address] GAP 13 Normal 5-15 [facility] Comment on above: Performed By: #### L 100.0100, L500.4050, L501.5200 ####[facility] [address] [place], [address] GFR/1.73 sq M.predicted among non-blacks MDRD (S/P/Bld) [Vol rate/Area] 108 mL/min/{1.73_m2} Normal >60 [facility] Comment on above: Result Comment: mL/m in/1.73m2 CKD-EPI Creatinine Equation (2020) Performed By: #### L 100.0100, L500.4050, L501.5200 ####[facility] [address] [place], [address] Globulin (S) [Mass/Vol] 3.4 g/dL Normal 2.2-4.2 [facility] Comment on above: Performed By: #### L 100.0100, L500.4050, L501.5200 ####[facility] [address] [place], [address] Glucose [Mass/Vol] 209 mg/dL High 70-99 [facility] Comment on above: Performed By: #### L 100.0100, L500.4050, L501.5200 ####[facility] [address] [place], [address] Potassium [Moles/Vol] 3.8 mmol/L Normal 3.3-5.1 [facility] Comment on above: Performed By: #### L 100.0100, L500.4050, L501.5200 ####[facility] [address] [place], [address] Sodium [Moles/Vol] 136 mmol/L Normal 133-145 [facility] Comment on above: Performed By: #### L 100.0100, L500.4050, L501.5200 ####[facility] [address] [place], [address] T PROT 7.3 g/dL Normal 5.9-8.4 [facility] Comment on above: Performed By: #### L 100.0100, L500.4050, L501.5200 ####[facility] [address] [place], [address] Urea nitrogen [Mass/Vol] 9 mg/dL Normal 4-19 [facility] Comment on above: Performed By: #### L 100.0100, L500.4050, L501.5200 ####[facility] [address] [place], [address] Eosinophil percentageOrdered By: Imani Persaud on 04-26-2025 Eosinophils/100 WBC (Bld) 0.2 % 0-5 [facility] Erythrocyte distribution wid th ratioOrdered By: Imani Persaud on 04-26-2025 Erythrocyte distribution width (RBC) [Ratio] 12.8 % 11.6-14.6 [facility] Erythrocyte distribution wid th standard deviationOrdered By: Imani Persaud on 04-26-2025 Erythrocyte distribution width (RBC) [Ratio] 39.1 fl 35.1-43.9 [facility] Glomerular filtration rate ( GFR) estimation/1.73 sq m using serum, plasma, or whole bOrdered By: Imani Persaud on 04-26-2025 GFR/1.73 sq M.predicted among non-blacks MDRD (S/P/Bld) [Vol rate/Area] 108 mL/min/{1.73_m2} >60 [facility] Comment on above: mL/min/1.73m2 CKD-EP I Creatinine Equation (2020) Hematocrit Auto (Bld) [Volum e fraction]Ordered By: Imani Persaud on 04-26-2025 Hematocrit (Bld) [Volume fraction] 38.3 % 37-47 [facility] Hemoglobin measurementOrdere d By: Imani Persaud on 04-26-2025 Hemoglobin (Bld) [Mass/Vol] 13.4 g/dL 12.0-15.0 [facility] Immature granulocytes/100 WB C Auto (Bld)Ordered By: Imani Persaud on 04-26-2025 Immature granulocytes/100 WBC (Bld) 0.200 % 0.0-0.9 [facility] Comment on above: IG% - Immature Granu locytes (promyelocytes, myelocytes and metamyelocytes) > 1% indicates that a LEFT SHIFT is Present. Laboratory - Chemistry and C hemistry - challengeOrdered By: Imani Persaud on 04-26-2025 AST [Catalytic activity/Vol] 13 U/L <32 [facility] MCV (mean corpuscular volume ) determinationOrdered By: Imani Persaud on 04-26-2025 MCV (RBC) [Entitic vol] 84.0 fL 81-99 [facility] Magnesiumon 04-26-2025 Magnesium [Mass/Vol] 2.0 mg/dL Normal 1.5-2.2 [facility] Comment on above: Performed By: #### L 100.0100, L500.4050, L501.5200 ####[facility] [address] [place], [address] Magnesium measurement (mass/ volume)Ordered By: Imani Persaud on 04-26-2025 Magnesium (Unsp spec) [Mass/Vol] 2.0 mg/dL 1.5-2.2 [facility] Mean corpuscular hemoglobin (MCH) determinationOrdered By: Imani Persaud on 04-26-2025 MCH (RBC) [Entitic mass] 29.4 pg 27.0-32.0 [facility] Mean corpuscular hemoglobin concentration (MCHC) determinationOrdered By: Imani Persaud on 04-26-2025 MCHC (RBC) [Mass/Vol] 35.0 g/dL 32-36 [facility] Mean platelet volume determi nationOrdered By: Imani Persaud on 04-26-2025 Platelet mean volume (Bld) [Entitic vol] 10.0 fL 6.2-12.0 [facility] Monocyte percentageOrdered B y: Imani Persaud on 04-26-2025 Monocytes/100 WBC (Bld) 2.5 % 0-10 [facility] Neutrophil percentageOrdered By: [facility] on 04-26-2025 Neutrophils/100 WBC (Bld) 72.8 % High 47-70 [facility] Nucleated red blood cell per centageOrdered By: Imnai Persaud on 04-26-2025 Nucleated RBC/100 WBC (Bld) [Ratio] 0 % 0-5 [facility] Oncology Visit Reporton 04-15 Oncology Visit Report Normal [facility] Phosphoruson 04-26-2025 Phosphate [Mass/Vol] 2.4 mg/dL Low 2.7-4.5 [facility] Comment on above: Performed By: #### L 100.0100, L501.2300 ####[facility] [address] [place], [address] Platelet countOrdered By: Jonatan Persaud on 04-26-2025 Platelets (Bld) [#/Vol] 126 10*3/uL Low 150-450 [facility] Potassium measurement (mass/ volume)Ordered By: Imani Persaud on 04-26-2025 Potassium (Unsp spec) [Mass/Vol] 3.8 mmol/L 3.3-5.1 [facility] RBC Auto (Bld) [#/Vol]Ordere d By: Imani Persaud on 04-26-2025 RBC (Bld) [#/Vol] 4.56 10*6/uL 4.2-5.4 [facility] Serum creatinine measurement (mass/volume)Ordered By: Imani Persaud on 04-26-2025 Creatinine [Mass/Vol] 0.57 mg/dL Low 0.70-1.20 [facility] Serum globulin measurementOr dered By: Imani Persaud on 04-26-2025 Globulin (S) [Mass/Vol] 3.4 g/dL 2.2-4.2 [facility] Serum glucose measurement (m ass/volume)Ordered By: Imani Persaud on 04-26-2025 Glucose [Mass/Vol] 209 mg/dL High 70-99 [facility] Serum or plasma alanine del rio otransferase (ALT) measurementOrdered By: Imani Persaud on 04-26-2025 ALT [Catalytic activity/Vol] 14 U/L <35 [facility] Serum or plasma albumin cass urement (mass/volume)Ordered By: Imani Persaud on 04-26-2025 Albumin [Mass/Vol] 3.9 g/dL 3.5-5.0 [facility] Serum or plasma albumin/glob ulin mass ratioOrdered By: Imani Persaud on 04-26-2025 Albumin/Globulin [Mass ratio] 1.1 {ratio} 0.9-2.4 [facility] Serum or plasma alkaline tre sphatase measurementOrdered By: Imani Persaud on 04-26-2025 ALP [Catalytic activity/Vol] 108 U/L High 35-104 [facility] Serum or plasma calcium cass urement (mass/volume)Ordered By: Imani Persaud on 04-26-2025 Calcium [Mass/Vol] 9.8 mg/dL 7.6-11.0 [facility] Serum or plasma urea nitroge n measurement (mass/volume)Ordered By: Imani Persaud on 04-26-2025 Urea nitrogen [Mass/Vol] 9 mg/dL 4-19 [facility] Sodium levelOrdered By: Jennifer Persaud on 04-26-2025 Sodium [Moles/Vol] 136 mmol/L 133-145 [facility] Total proteinOrdered By: Lonnie Persaud on 04-26-2025 Protein [Mass/Vol] 7.3 g/dL 5.9-8.4 [facility] White blood cell (WBC) count Ordered By: Imani Persaud on 04-26-2025 WBC (Bld) [#/Vol] 4.8 10*3/uL 4.4-11.0 [facility] Absolute lymphocyte countOrd ered By: Imani Persaud on 04-19-2025 Lymphocytes Auto (Unsp spec) [#/Vol] 1.21 10*3/uL 0.83-4.51 [facility] Absolute neutrophil countOrd ered By: Imani Persaud on 04-19-2025 Neutrophils (Bld) [#/Vol] 7.4 10*3/uL 2.0-7.7 [facility] Anion gap in Serum or Plasma Ordered By: Imani Persaud on 04-19-2025 Anion gap [Moles/Vol] 14 mmol/L 5-15 [facility] Automated lymphocyte count a s percentage of total leukocytesOrdered By: Imani Persaud on 04-19-2025 Lymphocytes/100 WBC Auto (Unsp spec) 12.7 % Low 19-41 [facility] BUN/creatinine ratioOrdered By: Imani Persaud on 04-19-2025 Urea nitrogen/Creatinine [Mass ratio] 19.6 mg/mg 10-20 [facility] Basophil percentageOrdered B y: Imani Persaud on 04-19-2025 Basophils/100 WBC (Bld) 0.3 % 0-1 [facility] Bilirubin, totalOrdered By: Imani Persaud on 04-19-2025 Bilirubin [Mass/Vol] 0.33 mg/dL 0.00-1.30 [facility] CBC W/Diff, Automatedon Absolute Lymph 1.21 X10 3/uL Normal 0.83-4.51 [facility] Comment on above: Performed By: #### L 501.5200, L500.4050, L100.0100 ####[facility] [address] [place], [address] Absolute Neut 7.4 X10 3/uL Normal 2.0-7.7 [facility] Comment on above: Performed By: #### L 501.5200, L500.4050, L100.0100 ####[facility] [address] [place], [address] Basophils/100 WBC (Bld) 0.3 % Normal 0-1 [facility] Comment on above: Performed By: #### L 501.5200, L500.4050, L100.0100 ####[facility] [address] [place], [address] Eosinophils/100 WBC (Bld) 0.2 % Normal 0-5 [facility] Comment on above: Performed By: #### L 501.5200, L500.4050, L100.0100 ####[facility] [address] [place], [address] Erythrocyte distribution width (RBC) [Ratio] 13.8 % Normal 11.6-14.6 [facility] Comment on above: Performed By: #### L 501.5200, L500.4050, L100.0100 ####[facility] [address] [place], [address] Hematocrit (Bld) [Volume fraction] 42.9 % Normal 37-47 [facility] Comment on above: Performed By: #### L 501.5200, L500.4050, L100.0100 ####[facility] [address] [place], [address] Hemoglobin (Bld) [Mass/Vol] 14.6 g/dL Normal 12.0-15.0 [facility] Comment on above: Performed By: #### L 501.5200, L500.4050, L100.0100 ####[facility] [address] [place], [address] IG% 0.500 Normal 0.0-0.9 [facility] Comment on above: Result Comment: IG% - Immature Granulocytes (promyelocytes, myelocytes andmetamyelocytes) > 1% indicates that a LEFT SHIFT is Present. Performed By: #### L 501.5200, L500.4050, L100.0100 ####[facility] [address] [place], [address] Lymphocytes/100 WBC (Bld) 12.7 % Low 19-41 [facility] Comment on above: Performed By: #### L 501.5200, L500.4050, L100.0100 ####[facility] [address] [place], [address] MCH (RBC) [Entitic mass] 29.1 pg Normal 27.0-32.0 [facility] Comment on above: Performed By: #### L 501.5200, L500.4050, L100.0100 ####[facility] [address] [place], [address] MCHC (RBC) [Mass/Vol] 34.0 g/dL Normal 32-36 [facility] Comment on above: Performed By: #### L 501.5200, L500.4050, L100.0100 ####[facility] [address] [place], [address] MCV (RBC) [Entitic vol] 85.5 fL Normal 81-99 [facility] Comment on above: Performed By: #### L 501.5200, L500.4050, L100.0100 ####[facility] [address] [place], [address] Monocytes/100 WBC (Bld) 8.1 % Normal 0-10 [facility] Comment on above: Performed By: #### L 501.5200, L500.4050, L100.0100 ####[facility] [address] [place], [address] Neutrophils/100 WBC (Bld) 78.2 % High 47-70 [facility] Comment on above: Performed By: #### L 501.5200, L500.4050, L100.0100 ####[facility] [address] [place], [address] Nucleated RBC (Bld) [#/Vol] 0 10*3/uL Normal 0-5 [facility] Comment on above: Performed By: #### L 501.5200, L500.4050, L100.0100 ####[facility] [address] [place], [address] Platelet mean volume (Bld) [Entitic vol] 9.7 fL Normal 6.2-12.0 [facility] Comment on above: Performed By: #### L 501.5200, L500.4050, L100.0100 ####[facility] [address] [place], [address] Platelets (Bld) [#/Vol] 226 10*3/uL Normal 150-450 [facility] Comment on above: Performed By: #### L 501.5200, L500.4050, L100.0100 ####[facility] [address] [place], [address] RBC (Bld) [#/Vol] 5.02 10*6/uL Normal 4.2-5.4 [facility] Comment on above: Performed By: #### L 501.5200, L500.4050, L100.0100 ####[facility] [address] [place], [address] RDW SD 43.0 fl Normal 35.1-43.9 [facility] Comment on above: Performed By: #### L 501.5200, L500.4050, L100.0100 ####[facility] [address] [place], [address] WBC (Bld) [#/Vol] 9.5 10*3/uL Normal 4.4-11.0 [facility] Comment on above: Performed By: #### L 501.5200, L500.4050, L100.0100 ####[facility] [address] [place], [address] Carbon dioxide, total [Moles /volume] in Central venous bloodOrdered By: Imani Persaud on 04-19-2025 CO2 [Moles/Vol] 18.6 mmol/L Low 21.0-32.0 [facility] Chloride assayOrdered By: Jonatan Persaud on 04-19-2025 Chloride [Moles/Vol] 105 mmol/L 98-108 [facility] Comprehensive Metabolic Prof ilon 04-19-2025 Albumin [Mass/Vol] 4.0 g/dL Normal 3.5-5.0 [facility] Comment on above: Performed By: #### L 501.5200, L500.4050, L100.0100 ####[facility] [address] [place], [address] Albumin/Globulin [Mass ratio] 1.1 {ratio} Normal 0.9-2.4 [facility] Comment on above: Performed By: #### L 501.5200, L500.4050, L100.0100 ####[facility] [address] [place], [address] ALK PHOS 115 U/L High 35-104 [facility] Comment on above: Performed By: #### L 501.5200, L500.4050, L100.0100 ####[facility] [address] [place], [address] ALT [Catalytic activity/Vol] 14 U/L Normal <=34 [facility] Comment on above: Performed By: #### L 501.5200, L500.4050, L100.0100 ####[facility] [address] [place], [address] AST [Catalytic activity/Vol] 16 U/L Normal <=31 [facility] Comment on above: Performed By: #### L 501.5200, L500.4050, L100.0100 ####[facility] [address] [place], [address] Bilirubin [Mass/Vol] 0.33 mg/dL Normal 0.00-1.30 [facility] Comment on above: Performed By: #### L 501.5200, L500.4050, L100.0100 ####[facility] [address] [place], [address] BUN/CRE 19.6 RATIO Normal 10-20 [facility] Comment on above: Performed By: #### L 501.5200, L500.4050, L100.0100 ####[facility] [address] [place], [address] Calcium [Mass/Vol] 9.6 mg/dL Normal 7.6-11.0 [facility] Comment on above: Performed By: #### L 501.5200, L500.4050, L100.0100 ####[facility] [address] [place], [address] Chloride [Moles/Vol] 105 mmol/L Normal 98-108 [facility] Comment on above: Performed By: #### L 501.5200, L500.4050, L100.0100 ####[facility] [address] [place], [address] CO2 [Moles/Vol] 18.6 mmol/L Low 21.0-32.0 [facility] Comment on above: Performed By: #### L 501.5200, L500.4050, L100.0100 ####[facility] [address] [place], [address] Creatinine [Mass/Vol] 0.59 mg/dL Low 0.70-1.20 [facility] Comment on above: Performed By: #### L 501.5200, L500.4050, L100.0100 ####[facility] [address] [place], [address] ECRCL 133.85 ml/min Normal 50-250 [facility] Comment on above: Performed By: #### L 501.5200, L500.4050, L100.0100 ####[facility] [address] [place], [address] GAP 14 Normal 5-15 [facility] Comment on above: Performed By: #### L 501.5200, L500.4050, L100.0100 ####[facility] [address] [place], [address] GFR/1.73 sq M.predicted among non-blacks MDRD (S/P/Bld) [Vol rate/Area] 107 mL/min/{1.73_m2} Normal >60 [facility] Comment on above: Result Comment: mL/m in/1.73m2 CKD-EPI Creatinine Equation (2020) Performed By: #### L 501.5200, L500.4050, L100.0100 ####[facility] [address] [place], [address] Globulin (S) [Mass/Vol] 3.8 g/dL Normal 2.2-4.2 [facility] Comment on above: Performed By: #### L 501.5200, L500.4050, L100.0100 ####[facility] [address] [place], [address] Glucose [Mass/Vol] 161 mg/dL High 70-99 [facility] Comment on above: Performed By: #### L 501.5200, L500.4050, L100.0100 ####[facility] [address] [place], [address] Potassium [Moles/Vol] 4.0 mmol/L Normal 3.3-5.1 [facility] Comment on above: Performed By: #### L 501.5200, L500.4050, L100.0100 ####[facility] [address] [place], [address] Sodium [Moles/Vol] 138 mmol/L Normal 133-145 [facility] Comment on above: Performed By: #### L 501.5200, L500.4050, L100.0100 ####[facility] [address] [place], [address] T PROT 7.7 g/dL Normal 5.9-8.4 [facility] Comment on above: Performed By: #### L 501.5200, L500.4050, L100.0100 ####[facility] [address] [place], [address] Urea nitrogen [Mass/Vol] 12 mg/dL Normal 4-19 [facility] Comment on above: Performed By: #### L 501.5200, L500.4050, L100.0100 ####[facility] [address] [place], [address] Eosinophil percentageOrdered By: Imani Persaud on 04-19-2025 Eosinophils/100 WBC (Bld) 0.2 % 0-5 [facility] Erythrocyte distribution wid th ratioOrdered By: Imani Persaud on 04-19-2025 Erythrocyte distribution width (RBC) [Ratio] 13.8 % 11.6-14.6 [facility] Erythrocyte distribution wid th standard deviationOrdered By: Imani Persaud on 04-19-2025 Erythrocyte distribution width (RBC) [Ratio] 43.0 fl 35.1-43.9 [facility] Glomerular filtration rate ( GFR) estimation/1.73 sq m using serum, plasma, or whole bOrdered By: [facility] Pers[facility] on 04-19-2025 GFR/1.73 sq M.predicted among non-blacks MDRD (S/P/Bld) [Vol rate/Area] 107 mL/min/{1.73_m2} >60 [facility] Comment on above: mL/min/1.73m2 CKD-EP I Creatinine Equation (2020) Hematocrit Auto (Bld) [Volum e fraction]Ordered By: Imani Persaud on 04-19-2025 Hematocrit (Bld) [Volume fraction] 42.9 % 37-47 [facility] Hemoglobin measurementOrdere d By: Imani Persaud on 04-19-2025 Hemoglobin (Bld) [Mass/Vol] 14.6 g/dL 12.0-15.0 [facility] Immature granulocytes/100 WB C Auto (Bld)Ordered By: Imani Persaud on 04-19-2025 Immature granulocytes/100 WBC (Bld) 0.500 % 0.0-0.9 [facility] Comment on above: IG% - Immature Granu locytes (promyelocytes, myelocytes and metamyelocytes) > 1% indicates that a LEFT SHIFT is Present. Laboratory - Chemistry and C hemistry - challengeOrdered By: Imani Persaud on 04-19-2025 AST [Catalytic activity/Vol] 16 U/L <32 [facility] MCV (mean corpuscular volume ) determinationOrdered By: Imani Persaud on 04-19-2025 MCV (RBC) [Entitic vol] 85.5 fL 81-99 [facility] Magnesiumon 04-19-2025 Magnesium [Mass/Vol] 2.1 mg/dL Normal 1.5-2.2 [facility] Comment on above: Performed By: #### L 501.5200, L500.4050, L100.0100 ####[facility] [address] [place], [address] Magnesium measurement (mass/ volume)Ordered By: Imani Persaud on 04-19-2025 Magnesium (Unsp spec) [Mass/Vol] 2.1 mg/dL 1.5-2.2 [facility] Mean corpuscular hemoglobin (MCH) determinationOrdered By: Imani Persaud on 04-19-2025 MCH (RBC) [Entitic mass] 29.1 pg 27.0-32.0 [facility] Mean corpuscular hemoglobin concentration (MCHC) determinationOrdered By: Imani Persaud on 04-19-2025 MCHC (RBC) [Mass/Vol] 34.0 g/dL 32-36 [facility] Mean platelet volume determi nationOrdered By: Imani Persaud on 04-19-2025 Platelet mean volume (Bld) [Entitic vol] 9.7 fL 6.2-12.0 [facility] Monocyte percentageOrdered B y: Imani Persaud on 04-19-2025 Monocytes/100 WBC (Bld) 8.1 % 0-10 [facility] Neutrophil percentageOrdered By: Imani Persaud on 04-19-2025 Neutrophils/100 WBC (Bld) 78.2 % High 47-70 [facility] Nucleated red blood cell per centageOrdered By: Imani Persaud on 04-19-2025 Nucleated RBC/100 WBC (Bld) [Ratio] 0 % 0-5 [facility] Oncology Visit Reporton Oncology Visit Report Normal [facility] Platelet countOrdered By: Jonatan Persaud on 04-19-2025 Platelets (Bld) [#/Vol] 226 10*3/uL 150-450 [facility] Potassium measurement (mass/ volume)Ordered By: Imani Persaud on 04-19-2025 Potassium (Unsp spec) [Mass/Vol] 4.0 mmol/L 3.3-5.1 [facility] RBC Auto (Bld) [#/Vol]Ordere d By: Imani Persaud on 04-19-2025 RBC (Bld) [#/Vol] 5.02 10*6/uL 4.2-5.4 [facility] Serum creatinine measurement (mass/volume)Ordered By: Imani Persaud on 04-19-2025 Creatinine [Mass/Vol] 0.59 mg/dL Low 0.70-1.20 [facility] Serum globulin measurementOr dered By: Imani Persaud on 04-19-2025 Globulin (S) [Mass/Vol] 3.8 g/dL 2.2-4.2 [facility] Serum glucose measurement (m ass/volume)Ordered By: Imani Persaud on 04-19-2025 Glucose [Mass/Vol] 161 mg/dL High 70-99 [facility] Serum or plasma alanine del rio otransferase (ALT) measurementOrdered By: Imani Persaud on 04-19-2025 ALT [Catalytic activity/Vol] 14 U/L <35 [facility] Serum or plasma albumin cass urement (mass/volume)Ordered By: Imani Persaud on 04-19-2025 Albumin [Mass/Vol] 4.0 g/dL 3.5-5.0 [facility] Serum or plasma albumin/glob ulin mass ratioOrdered By: Imani Persaud on 04-19-2025 Albumin/Globulin [Mass ratio] 1.1 {ratio} 0.9-2.4 [facility] Serum or plasma alkaline tre sphatase measurementOrdered By: Imani Persaud on 04-19-2025 ALP [Catalytic activity/Vol] 115 U/L High 35-104 [facility] Serum or plasma calcium cass urement (mass/volume)Ordered By: Imani Persaud on 04-19-2025 Calcium [Mass/Vol] 9.6 mg/dL 7.6-11.0 [facility] Serum or plasma urea nitroge n measurement (mass/volume)Ordered By: Imani Cori on 04-19-2025 Urea nitrogen [Mass/Vol] 12 mg/dL - [facility] Sodium levelOrdered By: Jennifer roth Cori on 04-19-2025 Sodium [Moles/Vol] 138 mmol/L 133-145 [facility] Total proteinOrdered By: Lonnie mcgraw Cori on 04-19-2025 Protein [Mass/Vol] 7.7 g/dL 5.9-8.4 [facility] White blood cell (WBC) count Ordered By: Imani Cori on 04-19-2025 WBC (Bld) [#/Vol] 9.5 10*3/uL 4.4-11.0 [facility] Cardiology Visit Reporton Cardiology Visit Report Normal [facility] Oncology Visit Reporton 03-16 Oncology Visit Report Normal [facility] CXR for Line Placementon CXR for Line Placement Normal [facility] Discharge Instructionon 03-15 Discharge [address] [facility] MR/POSTOP.ANEon 04-02-2025 MR/POSTOP.ANE [facility] MR/NIHPTNHK7ki 04-02-2025 MR/POSTOPAN2 [facility] Operative Reporton Operative Report [facility] MR/PAT.ANEon 03-28-2025 MR/PAT.ANE [facility] Oncology Visit Reporton 03-15 Oncology Visit Report Normal [facility] SURG PATH REQUESTon 03-27-20 Case Report Normal [facility] Comment on above: Result Comment: Surg ical Pathology Report Case: [id number] Authorizing Provider: Christopher Cunningham MD Collected: 03/27/2025 11:33 AM Ordering Location: [facility] Received: 03/27/2025 11:33 AM [place] Pathologist: Pablo Valentine MD Specimen: SURG PATH, Uterus, bilateral fallopian tubes, right ovary Performed By: #### S URGP #### [facility] (DEFAULT) [address] [place] [address] Diagnosis Comments There is no histolog ic evidence of any malignancy in this 2021 specimen. 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 [facility] Comment on above: Performed By: #### S URGP #### [facility] (DEFAULT) [address] [address] Gross Description [facility] Comment on above: Result Comment: The following material(s) are received from [facility], [address] [place] [address] with an identifying Surgical Pathology Report: 16 H&E slides labeled [id number]. Outside materials are returned in 60 days under separate cover with our number recorded on them. Grosser for this case was: [place] Performed By: #### S URGP #### [facility] (DEFAULT) [address] [address] Microscopic Description A microscopic examination was performed. [facility] Comment on above: Performed By: #### S URGP #### [facility] (DEFAULT) [address] [address] Pathologic Diagnosis [facility] Comment on above: Result Comment: Outs erika Slides [id number] (05/28/22) Uterus with bilateral fallopian tubes and right ovary, hysterectomy with right salpingo-oophorectomy and left salpingectomy: Cervix with nabothian cysts. Inactive focally-attenuated endometrium with pseudodecidual change. Myometrium with leiomyomata. Uterine serosa with no pathological data. Fallopian tubes with benign paratubal cysts. Ovary with cortical inclusion cysts. at 1200 EDT Performed By: #### S URGP #### [facility] (DEFAULT) [address] [address] Professional Interpretation Performed at: [facility] Comment on above: Result Comment: [facility] For Immediate Release to [facility] Yes [address] [address] Performed By: #### S URGP #### [facility] (DEFAULT) [address] [place] [id number] COMPREHENSIVE TUMOR GENOMIC PROFILE WITH MSI STATUS, SIGN OUTon 03-26-2025 Block/ [id number] (01/26/25) [facility] Comment on above: Performed By: #### N GS2 #### [facility] (DEFAULT) [address] [address] Comment Translocation status and copy number findings are based on NGS on tumor genomic DNA and may not correlate with findings by other methods (e.g. FISH or transcript analysis). [facility] Comment on above: Performed By: #### N GS2 #### [facility] (DEFAULT) [address] [address] Copy Number Findings See interpretation above. [facility] Comment on above: Performed By: #### N GS2 #### [facility] (DEFAULT) [address] [address] CTP Indication Other [facility] Comment on above: Performed By: #### N GS2 #### [facility] (DEFAULT) [address] [address] CTP MSI Status Stable Low [facility] Comment on above: Performed By: #### N GS2 #### [facility] (DEFAULT) [address] [address] CTP Mutation Level Low Normal [facility] Comment on above: Performed By: #### N GS2 #### [facility] (DEFAULT) [address] [address] CTPNGS Report/Interpretation 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 Extensive genomic complexity noted including homozygous deletion of PDCD1 and adjacent [id number] sequences, among many chromosomal segmental losses/gains. Comment: Low tumor mutation burden with high genomic complexity is consistent with a high-grade sarcoma. Correlate with pathology report for final diagnosis. Electronically Signed By: Girish Wolfe MD, PhD Clinically Significant or Potentially Significant Tumor-Associated Variants Gene Alteration Genomic Coordinates VAF Type of Alteration Significance* Therapeutic Implications Additional Information TP53 p.Y220H c.658T>C [id number]:A:G 96.8% Substitution - Missense Tier 2, Level C Evidence gnomAD: 0.0004% ClinVar: 146263 Biomarker Status Biomarker Result Therapeutic Implications Additional [...] derived from the CKB database (https://ckb.roberto.org) or ChargebackL annotation. For likely germline calls, associations are [...] for this panel are described at pathology.[facility]/CTP Mutation level: Reported per tumor type in [...] of Alteration Significance* Features Additional Information CDK12 p.[id number] c.3690C>G [id number]:C:G 4.9% Substitution - Missense Tier 3 gnomAD: [...] Performed By: #### N GS2 #### [facility] (DEFAULT) [address] [place] [address] Method/Limitations: Normal [facility] Comment on above: Result Comment: Hist [...] at 94 genomic regions as assessed by mSILSN MobileS software. MSI is reported as positive (which approximately corresponds to MSI-high status) or negative. MSI-low is not determined in this assay. Discordances with PCR-based methods may occur in up to 5% of cases. This assay provides limited DNA-based translocation detection using intron tiling of selected targets (see website for list). Detection sensitivity, using Altacor and Turpitude software, is approximately 70% compared to FISH. [...] review of morphologic/histologic material, if available. See [email or web address] for gene list and the methodology and limitations for other tumor genomic features reported This test was developed and its performance determined by the [facility] the [facility] at [address] [place] [address] under the medical direction of Jose Yao [...] Performed By: #### N GS2 #### [facility] (DEFAULT) [address] [place] [address] Reviewed by Girish Wolfe MD [facility] Comment on above: Performed By: #### N GS2 #### [facility] (DEFAULT) [address] [place] [address] Tissue Source Pelvis, mass, excision [facility] Comment on above: Performed By: #### N GS2 #### [facility] (DEFAULT) [address] [place] [address] Translocation Status No pathogenic chrom osomal translocations detected in limited panel assessed by intron tiling in tumor genomic DNA. [facility] Comment on above: Performed By: #### N GS2 #### [facility] (DEFAULT) [address] [place] [address] Chest, Abd, Pel w/Contras ton 03-26-2025 CT Chest, Abd, Pel w/Contrast Normal [facility] SURG PATH REQUESTon 03-26-[address] [facility] Comment on above: Result Comment: This addendum is issued to report on the [id number] ER quant, and DE Quant stains were performed on block A2. Positive: ER (90%), DE (60%) Negative:SS18 Prior diagnosis remains unchanged. Addendum electronically signed by Alexandra Lan MD on 05/08/2025 at 1211 EDT Performed By: #### S URGP #### [facility] (DEFAULT) [address] [place] [address] Case Report [facility] Comment on above: Result Comment: Surg ical Pathology Report Case: [id number] Authorizing Provider: Christopher Cunningham MD Collected: 03/26/2025 11:00 AM Ordering Location[facility] Received: 03/26/2025 10:59 AM [place] Pathologist: Alexandra Lan MD Specimen: SURG PATH, A) Pelvic, pelvic mass; B) Pelvic, pelvic mass #2; C) Omentum, resection, omentum; D) Ovary, left, left ovary Performed By: #### S URGP #### [facility] (DEFAULT) [address] [address] Diagnosis Comments Normal [facility] Comment on above: Performed By: #### S URGP #### [facility] (DEFAULT) [address] [address] Gross Description Normal [facility] Comment on above: Result Comment: The following material(s) are received from [facility], [address] [place] [address] with an identifying Surgical Pathology Report: 28 H&E and 8 non-H&E slides labeled [id number]. The [facility] Surgical Pathology Report [id number] and [facility] Surgical Pathology Report [id number] are included for review. Subsequently received from the same facility on March 29, 2025, is/are 1 paraffin block(s) marked [id number] (A7), which is/are submitted to [facility] Histology/IHC Laboratory for re-cutting and additional staining. Outside materials are returned in 60 days under separate cover with our number recorded on them. Grosser for this case was: [place] Performed By: #### S URGP #### [facility] (DEFAULT) [address] [address] Microscopic Description Normal [facility] Comment on above: Result Comment: A mi croscopic examination was performed. All controls show appropriate reactivity. All immunohistochemistry (IHC), in situ hybridization (DOUGLAS), and histochemical tests were developed by and are performed at the [facility] Clinical Laboratory, Histology and IHC Lab, [address] [place] [address], [place] [address]. All Immunofluorescent (IF) tests were developed by and are performed at the [facility] Clinical Laboratory, Renal Division, [address] [place] [address]. All tests reported here, except for PD-L1, have not been cleared by or approved by the US Food and Drug Administration (FDA). The laboratory is regulated under CLIA as qualified to perform high-complexity testing. The tests are used for clinical purposes. They should not be regarded as investigational or for research. Performed By: #### S URGP #### [facility] (DEFAULT) [address] [place] [address] Pathologic Diagnosis Normal [facility] Comment on above: Result Comment: Outs erika Slides [id number] (01/26/25) A. 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 Extensive genomic complexity noted including homozygous deletion of PDCD1 and adjacent xav2l09-04 sequences, among many chromosomal segmental losses/gains. Low [...] of uterine leiomyomas. Dr. Grijalva has reviewed self pay representative slides. at 2313 EDT Performed By: #### S URGP #### [facility] (DEFAULT) [address] [place] [address] Professional Interpretation Performed at: Normal [facility] Comment on above: Result Comment: [facility] For Immediate Release to [facility] Yes [address] [place] [address] Performed By: #### S URGP #### [facility] (DEFAULT) [address] [place] [address] Surgery Visit Reporton 03-26 Surgery Visit Report Normal [facility] Oncology Visit Reporton 02-13 Oncology Visit Report Normal [facility] 36on 02-16-2025 36 Pt called with path, to see Med Onc . Rec chemo. 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 Antonio willard at [phone] via [employer]. 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 Dr Grady requested they send patient back to see him after chemo is completed. He does not need to see her before then. Called patient and informed her of same. She verbalized understanding and agreement with plan. [facility] 36 Mail box full [facility] Office Visiton 02-14-2025 Follow-up visit [id number] Kristina Mcdonald 1970 F Date Provider Department Center 02/14/2025 [id number] APPLICATION SPECIALIST None Family History Problem Relation Age of Onset Kidney disease Father Breast cancer Father's Sister Comments: late 50's, early 60's Family Status - Relation Status Age at Father Father's Sister Alive Level of Service:40120 DE OFFICE/OUTPATIENT ESTABLISHED LOW MDM 20 MIN Reason for Visit and Comments: Post-op Visit [559] - 2 wks IPO [facility] Progress Noteon 02-14-2025 Progress Note GYNECOLOGIC ONCOLOGY [...] addendum. This case was sent to the [facility] with the above diagnosis for parts A and B rendered by Dr. Pierce. Below is Dr. Pierce's comment. 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 Immunochemical stains performed by [employer] and submitted for review show that the tumor cells are positive for SMA and negative for desmin, STAT6, pancytokeratin, S100 and CD34. Immunochemical stains were performed at the [facility] with the following results: - [...] pt would like to get chemo at [facility] infusion center near her house - [...] half of (more content not included)... Normal [facility] SURGICAL PATHOLOGY REFERENCE LAB CONSULTon 02-08-2025 AP DISCLAIMER Normal [facility] Comment on above: Order Comment: Speci men Type: FORMALIN-FIXED PARAFFIN-EMBEDDED TISSUE SPECIMENOrdering Facility: [facility] Address: C/O [facility], DEPT OF PATHOLOGY, [place] [address] Result Comment: Abdullahi kahn Developed Test (LDT) Disclaimer: Performance characteristics of immunohistochemical, immunofluorescent, and chromogenic in-situ hybridization tests have been determined by the performing laboratory within [facility]'s [facility] Pathology and Laboratory Medicine Department ([facility], [facility], [facility], [facility], [facility], [facility], or [facility]) in a manner consistent with CLIA requirements. One or more of these tests may not have been cleared or approved by the FDA. [facility] is regulated under CLIA as qualified to perform high-complexity testing. These tests are used for clinical purposes. These should not be regarded as investigational or for research. Positive and negative controls stain appropriately. Performed By: #### L [id number] ####[facility] LABCLIA [id number] [place] [address] [place] CASE REPORT Normal [facility] Comment on above: Order Comment: Speci men Type: FORMALIN-FIXED PARAFFIN-EMBEDDED TISSUE SPECIMENOrdering Facility: [facility] Address: C/O [facility], DEPT OF PATHOLOGY, [place] [address] Result Comment: Surg ical Pathology Report Case: [id number] Authorizing Provider: Wolf Thorpe MD Collected: 02/08/2025 09:34 PM Ordering Location: [facility] Main Received: 02/08/2025 09:33 PM [facility] Pathologist: Aviva Pierce MD Specimen: Block(s) and/or Slide(s), 36 SLIDES / 1 BLOCK [id number]; A3 Performed By: #### L [id number] ####[facility] LABCLIA [id number] [address] [place] [address] [facility] CLINICAL HISTORY CONSULT REQUESTED Normal [facility] Comment on above: Order Comment: Speci men Type: FORMALIN-FIXED PARAFFIN-EMBEDDED TISSUE SPECIMENOrdering Facility: [facility] Address: O [facility], DEPT OF PATHOLOGY, [place] [address] Performed By: #### L [id number] ####[facility] LABCLIA [id number] [place] [id number] [facility] DIAGNOSIS COMMENT Normal [facility] Comment on above: Order Comment: Speci men Type: FORMALIN-FIXED PARAFFIN-EMBEDDED TISSUE SPECIMENOrdering Facility: [facility] Address: [facility]PT [facility], [place] [address] Result Comment: Than k you for the [...] CD34. Immunohistochemical stains were performed at the [facility] with the following results: - [...] with the diagnosis. Performed By: #### L [id number] ####[facility] LABCLIA [id number] [place] [id number] [facility] FINAL DIAGNOSIS Normal [facility] Comment on above: Order Comment: Speci men Type: FORMALIN-FIXED PARAFFIN-EMBEDDED TISSUE SPECIMENOrdering Facility: [facility] Address: C/O [facility] DEPT OF PATHOLOGY, [place] [address] Result Comment: Revi [facility]w of [facility] ([id number], 01/26/2025) A, B. Pelvic mass, excision: High-grade sarcoma with myogenic differentiation, favor leiomyosarcoma; see comment. at 1504 EDT Performed By: #### L [id number] ####[facility] LABCLIA [id number] [place] [id number] [facility] FINAL PERFORMING LAB Normal [facility] Comment on above: Order Comment: Speci men Type: FORMALIN-FIXED PARAFFIN-EMBEDDED TISSUE SPECIMENOrdering Facility: [facility] Address: C/O [facility], DEPT OF PATHOLOGY, [place] [address] Result Comment: Diag nostic interpretation performed at: [facility], [address] [place] [address], [place] [id number] CLIA# [id number] Certified Legal Investigator: Juan Padilla MD Performed By: #### L [id number] ####[facility] LABCLIA [id number] [address] [address] [facility] 30on 01-27-2025 30 Problem: Pain - Adul t Goal: Verbalizes/displays adequate comfort level or baseline comfort level Outcome: Progressing Problem: Safety - Adult Goal: Free from fall injury Outcome: Progressing Problem: Discharge Planning Goal: Discharge to home or other facility with appropriate resources Outcome: Progressing Normal [facility] CBC (HEMOGRAM)on 01-27-2025 Erythrocyte distribution width (RBC) [Ratio] 13.0 % Normal 11.5-15.0 [facility] Comment on above: Performed By: #### L [id number] #### Penology Professor: KYREE WEATHERS ([id number]) [facility]) [address] [place] [address] Hematocrit (Bld) [Volume fraction] 28.0 % Low 35.0-47.0 [facility] Comment on above: Performed By: #### L [id number] #### Penology Professor: KYREE WEATHERS ([id number]) [facility]) [address] [place] [address] Hemoglobin (Bld) [Mass/Vol] 9.4 g/dL Low 11.7-16.0 [facility] Comment on above: Performed By: #### L [id number] #### Penology Professor: KYREE WEATHERS ([id number]) [facility]) [address] [place] [address] MCH (RBC) [Entitic mass] 29.2 pg Normal 26.0-34.0 [facility] Comment on above: Performed By: #### L [id number] #### Penology Professor: KYREE WEATHERS ([id number]) [facility]) [address] [place] [address] MCHC 33.6 % Normal 30.5-36.0 [facility] Comment on above: Performed By: #### L [id number] #### Penology Professor: KYREE WEATHERS ([id number]) [facility]) [address] [place] [address] MCV (RBC) [Entitic vol] 87.0 fL Normal 77.0-99.0 [facility] Comment on above: Performed By: #### L [id number] #### Penology Professor: KYREE WEATHERS ([id number]) [address] Platelet mean volume (Bld) [Entitic vol] 10.4 fL Normal 9.0-12.7 [facility] Comment on above: Performed By: #### L [id number] #### Penology Professor: KYREE WEATHERS ([id number]) [facility]) [address] [place] [address] Platelets (Bld) [#/Vol] 200 10*3/uL Normal 140-440 [facility] Comment on above: Performed By: #### L [id number] #### Penology Professor: KYREE WEATHERS ([id number]) [facility]) [address] [place] [address] RBC (Bld) [#/Vol] 3.22 10*6/uL Low 3.80-5.20 [facility] Comment on above: Performed By: #### L [id number] #### Penology Professor: KYREE WEATHERS ([id number]) [facility]) [address] [place] [address] WBC (Bld) [#/Vol] 10.4 10*3/uL Normal 3.6-10.7 [facility] Comment on above: Performed By: #### L [id number] #### Penology Professor: KYREE WEATHERS ([id number]) [facility] ([facility]) [address] [place] [address] CBC panel Auto (Bld)Ordered By: Theo Lopez on 01-27-2025 Erythrocyte distribution width (RBC) [Ratio] 13 % 11.5 - 15.0 % [facility] Hematocrit (Bld) [Volume fraction] 28 % Low 35.0 - 47.0 % [facility] Hemoglobin (Bld) [Mass/Vol] 9.4 g/dL Low 11.7 - 16.0 g/dL [facility] Interpretation and review of laboratory results Abnormal [facility] MCH (RBC) [Entitic mass] 29.2 pg 26.0 - 34.0 pg [facility] MCHC (RBC) [Mass/Vol] 33.6 % 30.5 - 36.0 % [facility] MCV (RBC) [Entitic vol] 87 fL 77.0 - 99.0 fL [facility] Platelet mean volume (Bld) [Entitic vol] 10.4 fL 9.0 - 12.7 fL [facility] Platelets (Bld) [#/Vol] 200 10*3/uL 140 - 440 10*3/uL [facility] RBC (Bld) [#/Vol] 3.22 10*6/uL Low 3.80 - 5.2 0 10*6/uL Exent WBC (Bld) [#/Vol] 10.4 10*3/uL 3.6 - 10.7 10*3/uL [employer] No Panel InformationOrdered By: Linus Cain on 01-27-2025 P Colrain 53 degrees Exent Work Phone: DE Interval 185 ms Exent Work Phone: QRS [place] 56 degrees Exent Work Phone: QRSD Interval 76 ms [employer] Phone: QT Interval 372 ms [employer] Phone: QTC Interval 418 ms [place] Phone: T Wave [place] 53 degrees Utterz Phone: Utterz Phone: No Panel Informationon 01-27 Linus Cain MD - 01/27/2025 IMPRESSION: Sinus rhythm Low voltage, precordial leads Poor R wave progression Electronically Signed On 01-27-2025 11:41:44 EDT by Linus Cain [facility] Progress Noteon 01-27-2025 Progress Note ------ -- [...] follow-up, questions answered. Sumaya Marroquin MD -- CLIN APPLICATION SPECIALIST Progress Note Please page the [facility] CLIN APPLICATION SPECIALIST ONC Call RES group via Secure Chat [...] QTC Interval 01/26/2025 418 ms Final P Colrain 01/26/2025 53 degrees Final QRS [place] 01/26/2025 56 degrees Final T Wave [place] 01/26/2025 53 degrees Final DE Interval 01/26/2025 185 ms Final Auto WBC [...] Final Platele (more content not included)... Normal [facility] Vital signsOrdered By: Alina Cain on 01-27-2025 Heart rate 76 /min bpm [facility] Work Phone: 30on 01-26-2025 30 Problem: Pain - Adul t Goal: Verbalizes/displays adequate comfort level or baseline comfort level Outcome: Progressing Problem: Safety - Adult Goal: Free from fall injury Outcome: Progressing Problem: Discharge Planning Goal: Discharge to home or other facility with appropriate resources Outcome: Progressing Normal [facility] ABO and Rh group Confirm Nom (Bld)on 01-26-2025 ABO group Nom (Bld) A [facility] D Ag Ql (RBC) Positive [facility] BASIC METABOLIC PANELon 01-13 Anion gap [Moles/Vol] 10 mmol/L Normal 3-13 [facility] [place] Comment on above: Performed By: #### L AB15 #### Penology Professor: KYREE WEATHERS ([id number]) [facility]) [address] [place] [address] Calcium [Mass/Vol] 9.0 mg/dL Normal 8.4-10.2 [facility] Comment on above: Performed By: #### L AB15 #### Penology Professor: KYREE WEATHERS ([id number]) [facility]) [address] [place] [address] Chloride [Moles/Vol] 104 mmol/L Normal 98-107 [facility] Comment on above: Performed By: #### L AB15 #### Penology Professor: KYREE WAETHERS ([id number]) [facility]) [address] [place] [address] [place] CO2 [Moles/Vol] 22 mmol/L Normal 22-29 [facility] Comment on above: Performed By: #### L AB15 #### Penology Professor: KYREE WEATHERS ([id number]) [facility]) [address] [place] [address] Creatinine [Mass/Vol] 0.64 mg/dL Normal 0.57-1.11 [facility] [place] Comment on above: Performed By: #### L AB15 #### Penology Professor: KYREE WEATHERS ([id number]) [facility]) [address] [place] [address] GLOMERULAR FILTRATION RATE ML/MIN/1.73 SQ M.PREDICTED >90.0 Normal >60.0 [facility] Comment on above: Result Comment: Calc ulation based on the Chronic Kidney Disease Epidemiology Collaboration (CKD-EPI) equation refit without adjustment for race Performed By: #### L AB15 #### Penology Professor: KYREE WEATHERS ([id number]) [facility] ([facility]) [address] [place] [address] Glucose [Mass/Vol] 129 mg/dL High 74-100 [facility] Comment on above: Performed By: #### L AB15 #### Penology Professor: KYREE WEATHERS ([id number]) [facility]) [address] [place] [address] Potassium [Moles/Vol] 3.7 mmol/L Normal 3.5-5.1 [facility] [place] Comment on above: Result Comment: [facility] potassium values may be up to 0.5 mmol/L lower than serum values. Performed By: #### L AB15 #### Penology Professor: KYREE WEATHERS ([id number]) [facility]) [address] [place] [address] Sodium [Moles/Vol] 136 mmol/L Normal 136-145 [facility] Comment on above: Performed By: #### L AB15 #### Penology Professor: KYREE WEATHERS ([id number]) [facility]) [address] [place] [address] Urea nitrogen [Mass/Vol] 12 mg/dL Normal 9-23 [facility] Comment on above: Performed By: #### L AB15 #### Penology Professor: KYREE WEATHERS ([id number]) [facility]) [address] [place] [address] BLOOD TYPE AND SCREEN GELon 01-26-2025 ABO GROUPING A Normal [facility] Comment on above: Order Comment: HOLD. Specimen is valid for 3 days - nurse to verify valid specimen Performed By: #### L AB15 #### Penology Professor: KYREE WEATHERS ([id number]) [facility]) [address] [place] [address] RH TYPE IN BLOOD Positive Normal [facility] Comment on above: Order Comment: HOLD. Specimen is valid for 3 days - nurse to verify valid specimen Performed By: #### L AB15 #### Penology Professor: KYREE WEATHERS ([id number]) [facility]) [address] [place] [address] Basic metabolic 1998 panelon 01-26-2025 Anion gap [Moles/Vol] 10 mmol/L 3 - 13 mmol/L [facility] Calcium [Mass/Vol] 9 mg/dL 8.4 - 10. 2 mg/dL [facility] Chloride [Moles/Vol] 104 mmol/L 98 - 10 7 mmol/L [facility] CO2 [Moles/Vol] 22 mmol/L 22 - 29 mmol/L [facility] Creatinine [Mass/Vol] 0.64 mg/dL 0.57 - 1.11 mg/dL [facility] GFR/1.73 sq M.predicted (S/P/Bld) [Vol rate/Area] - PINF [facility] Comment on above: Calculation based on the Chronic Kidney Disease Epidemiology Collaboration (CKD-EPI) equation refit without adjustment for race Glucose [Mass/Vol] 129 mg/dL High 74 - 100 mg/dL [facility] Interpretation and review of laboratory results Abnormal [facility] Potassium [Moles/Vol] 3.7 mmol/L 3.5 - 5.1 mmol/L [facility] Comment on above: Plasma potassium fredis ues may be up to 0.5 mmol/L lower than serum values. Sodium [Moles/Vol] 136 mmol/L 136 - 145 mmol/L [facility] Urea nitrogen [Mass/Vol] 12 mg/dL 9 - 23 mg/dL [facility] Blood type and Crossmatch pa chantale (Bld)on 01-26-2025 ABO group Nom (Bld) A [facility] Blood group antibody screen GEL Ql Negative [facility] D Ag Ql (RBC) Positive [facility] CBC (HEMOGRAM)on 01-26-2025 Erythrocyte distribution width (RBC) [Ratio] 13.2 % Normal 11.5-15.0 [facility] Comment on above: Performed By: #### L AB294 #### Penology Professor: KYREE WEATHERS ([id number]) [address] Hematocrit (Bld) [Volume fraction] 38.2 % Normal 35.0-47.0 [facility] Comment on above: Performed By: #### L AB294 #### Penology Professor: KYREE WEATHERS ([id number]) [facility]) [address] [place] [address] Hemoglobin (Bld) [Mass/Vol] 13.0 g/dL Normal 11.7-16.0 [facility] Comment on above: Performed By: #### L AB294 #### Penology Professor: KYREE WEATHERS ([id number]) [address] MCH (RBC) [Entitic mass] 28.7 pg Normal 26.0-34.0 [facility] Comment on above: Performed By: #### L AB294 #### Penology Professor: KYREE WAETHERS ([id number]) [address] MCHC 34.0 % Normal 30.5-36.0 [facility] Comment on above: Performed By: #### L AB294 #### Penology Professor: KYREE WEATHERS ([id number]) [facility]) [address] [place] [address] MCV (RBC) [Entitic vol] 84.3 fL Normal 77.0-99.0 [facility] Comment on above: Performed By: #### L AB294 #### Penology Professor: KYREE WEATHERS ([id number]) [address] Platelet mean volume (Bld) [Entitic vol] 10.4 fL Normal 9.0-12.7 [facility] Comment on above: Performed By: #### L AB294 #### Penology Professor: KYREE WEATHERS ([id number]) [facility] [address] [place] [address] Platelets (Bld) [#/Vol] 227 10*3/uL Normal 140-440 [facility] Comment on above: Performed By: #### L AB294 #### Penology Professor: KYREE WEATHERS ([id number]) [facility]) [address] [place] [address] RBC (Bld) [#/Vol] 4.53 10*6/uL Normal 3.80-5.20 [facility] Comment on above: Performed By: #### L AB294 #### Penology Professor: KYREE WEATHERS ([id number]) [facility] ([facility]) [address] [place] [address] WBC (Bld) [#/Vol] 8.5 10*3/uL Normal 3.6-10.7 [facility] Comment on above: Performed By: #### L AB294 #### Penology Professor: KYREE WEATHERS ([id number]) [facility] ([facility]) [address] [place] [address] CBC panel Auto (Bld)on 01-26 Erythrocyte distribution width (RBC) [Ratio] 13.2 % 11.5 - 15.0 % [facility] Hematocrit (Bld) [Volume fraction] 38.2 % 35.0 - 47.0 % [facility] Hemoglobin (Bld) [Mass/Vol] 13 g/dL 11.7 - 16.0 g/dL [facility] Interpretation and review of laboratory results Normal [facility] MCH (RBC) [Entitic mass] 28.7 pg 26.0 - 34.0 pg [facility] MCHC (RBC) [Mass/Vol] 34 % 30.5 - 36.0 % [facility] MCV (RBC) [Entitic vol] 84.3 fL 77.0 - 99.0 fL [facility] Platelet mean volume (Bld) [Entitic vol] 10.4 fL 9.0 - 12.7 fL [facility] Platelets (Bld) [#/Vol] 227 10*3/uL 140 - 440 10*3/uL [facility] RBC (Bld) [#/Vol] 4.53 10*6/uL 3.80 - 5.2 0 10*6/uL [facility] WBC (Bld) [#/Vol] 8.5 10*3/uL 3.6 - 10.7 10*3/uL [facility] Nursing Noteon 01-26-2025 Nursing Note Meds to Beds deliver ed to patient. Pt declined oxycodone prescription and sent back with Meds to Beds. [facility] Nursing Note Report given to Jenny PACK [facility] Nursing Note Faxed report sheet to Yaneli [facility] Nursing Note Patient family/visit or updated by RN at this time. [facility] Op Noteon 01-26-2025 Op Note Date [...] Hemostasis was with several small 3-0 Vicryl [id number]'s in the bladder peritoneum Bovie cautery as [...] cover room in stable condition by anesthesia [facility] Op Note Date: 01/26/2025 Loca tion: ACH [...] Wash NON-GYNECOLOGIC CYTOLOGY Darvin Grady MD 01/26/25 0816 No Description: pelvic washings 2 Pelvic Tissue TISSUE EXAM Darvin Grady MD 01/26/25 09 Yes STAT Description: pelvic mass 3 Pelvic Tissue TISSUE EXAM Darvin Grady MD 01/26/25 09 No Routine Description: pelvic mass #2 4 Omentum, Biopsy Tissue TISSUE EXAM Darvin Grady MD 01/26/25 0913 No Routine Description: omentum 5 Ovary, Left Tissue TISSUE EXAM Darvin Grady MD 01/26/25927 Routine Description: LEFT OVARY Staff: Farm Equipment Service Technician: Dora Castro RN Scrub Person: Daysi Escobar RN [place] to Circ: Sabrina Philip RN Findings: Leiomyosarcoma [...] (two hours if receiving Vancomycin or flouroquinolone) [facility] [id number] 01-23-2025 [id number] Medication List Accurate as of January 23, [...] Adjustments for Surgery: Take night before surgery ASTRONOMY DEPARTMENT CHAIR AND PARKING IN THE MAIN DECK ARE [...] your scheduled surgery time. Please bring your [facility] Surgical folder and medication list with you day of surgery. We encourage you to write down any questions you may have for the surgeon, anesthesiologist, or other members of the surgical team and bring it with you the day of surgery. Please bring photo ID and insurance information. Normal [facility] Cancer Antigen 125on 025 CA 125 11.3 U/mL Normal 0.0-38.1 [facility] Comment on above: Result Comment: [facility] [employer] Electrochemiluminescence Immunoassay(ECLIA)Values obtained with different assay methods or kits cannotbe used interchangeably. Results cannot be interpreted asabsolute evidence of the presence or absence of malignantdisease.Performed at: [employer] [address] [id number] Director: Richi Vargas PhD, Phone: [phone] Performed By: #### L 504.2610, L3100.5000, L100.0100, L500.4050, L100.9950 ####[facility] [address] [place], [place], [id number] 36on 01-19-2025 36 PAT 01.23.2025 at 9: 30 am by phone SX: 04.28.2025 at 8:30 am arrival at 6:30 am Post op 02.09.2025 at 11 am Folder and instructions given. Normal [facility] Cancer antigen 125 (CA-125) measurementOrdered By: Imani Persaud on 01-19-2025 CA 125 Antigen 11.3 U/mL 0.0-38.1 [facility] Comment on above: [employer] El ectrochemiluminescence Immunoassay(ECLIA)Values obtained with different assay methods or kits cannotbe used interchangeably. Results cannot be interpreted asabsolute evidence of the presence or absence of malignantdisease.Performed at: [facility] [place], [place] [id number] Director: Richi Vargas PhD, Phone: [phone] Cancer antigen 125 (CA-125) measurement 11.3 U/mL 0.0-38.1 [facility] Comment on above: [employer] El ectrochemiluminescence Immunoassay(ECLIA)Values obtained with different assay methods or kits cannotbe used interchangeably. Results cannot be interpreted asabsolute evidence of the presence or absence of malignantdisease.Performed at: [facility], [place] [id number] Director: Richi Vargas PhD, Phone: [phone] Office Visiton 01-17-2025 Follow-up visit [id number] Kristina Mcdonald [facility] 1970 F Date Provider Department Center 01/17/2025 [id number] [facility] APPLICATION SPECIALIST None Family History Problem Relation Age of Onset Kidney disease Father Breast cancer Father's Sister Comments: late 50's, early 60's Family Status - Relation Status Age at Father Father's Sister Alive Level of Service:04313 DE OFFICE/OUTPATIENT NEW LOW MDM 30 MINUTES Reason for Visit and Comments: Female Problem [263] Normal [facility] Progress Noteon 01-17-2025 Progress Note Cow Puncher was offere d to the patient for exam. Patient accepted, certified medical asst in room during exam Normal [facility] Transvaginal Non-on 01-12-2025 Transvaginal Non- Normal [facility] Absolute lymphocyte countOrd ered By: Imani Persaud on 01-10-2025 Lymphocytes Auto (Unsp spec) [#/Vol] 1.58 10*3/uL 0.83-4.51 [facility] Absolute neutrophil countOrd ered By: Imani Persaud on 01-10-2025 Neutrophils (Bld) [#/Vol] 5.7 10*3/uL 2.0-7.7 [facility] Automated lymphocyte count a s percentage of total leukocytesOrdered By: Imani Persaud on 01-10-2025 Lymphocytes/100 WBC Auto (Unsp spec) 19.3 % 19-41 [facility] BUN/creatinine ratioOrdered By: Imani Persaud on 01-10-2025 Urea nitrogen/Creatinine [Mass ratio] 20.6 mg/mg High 10-20 [facility] Basophil percentageOrdered B y: Imani Persaud on 01-10-2025 Basophils/100 WBC (Bld) 0.9 % 0-1 [facility] Bilirubin, totalOrdered By: Imani Persaud on 01-10-2025 Bilirubin [Mass/Vol] 0.43 mg/dL 0.00-1.30 [facility] CBC W/Diff, Automatedon 12-17 Absolute Lymph 1.58 X10 3/uL Normal 0.83-4.51 [facility] Comment on above: Performed By: #### L 504.2610, L3100.5000, L100.0100, L500.4050, L100.9950 ####[facility] [address] [place], [address] Absolute Neut 5.7 X10 3/uL Normal 2.0-7.7 [facility] Comment on above: Performed By: #### L 504.2610, L3100.5000, L100.0100, L500.4050, L100.9950 ####[facility] [address] [place], [address] Basophils/100 WBC (Bld) 0.9 % Normal 0-1 [facility] Comment on above: Performed By: #### L 504.2610, L3100.5000, L100.0100, L500.4050, L100.9950 ####[facility] [address] [place], [address] Eosinophils/100 WBC (Bld) 3.7 % Normal 0-5 [facility] Comment on above: Performed By: #### L 504.2610, L3100.5000, L100.0100, L500.4050, L100.9950 ####[facility] [address] [place], [address] Erythrocyte distribution width (RBC) [Ratio] 13.0 % Normal 11.6-14.6 [facility] Comment on above: Performed By: #### L 504.2610, L3100.5000, L100.0100, L500.4050, L100.9950 ####[facility] [address] [place], [address] Hematocrit (Bld) [Volume fraction] 42.6 % Normal 37-47 [facility] Comment on above: Performed By: #### L 504.2610, L3100.5000, L100.0100, L500.4050, L100.9950 ####[facility] [address] [place], [address] Hemoglobin (Bld) [Mass/Vol] 13.9 g/dL Normal 12.0-15.0 [facility] Comment on above: Performed By: #### L 504.2610, L3100.5000, L100.0100, L500.4050, L100.9950 ####[facility] [address] [place], [address] IG% 0.600 Normal 0.0-0.9 [facility] Comment on above: Result Comment: IG% - Immature Granulocytes (promyelocytes, myelocytes andmetamyelocytes) > 1% indicates that a LEFT SHIFT is Present. Performed By: #### L 504.2610, L3100.5000, L100.0100, L500.4050, L100.9950 ####[facility] [address] [place], [address] Lymphocytes/100 WBC (Bld) 19.3 % Normal 19-41 [facility] Comment on above: Performed By: #### L 504.2610, L3100.5000, L100.0100, L500.4050, L100.9950 ####[facility] [address] [place], [address] MCH (RBC) [Entitic mass] 30.1 pg Normal 27.0-32.0 [facility] Comment on above: Performed By: #### L 504.2610, L3100.5000, L100.0100, L500.4050, L100.9950 ####[facility] [address] [place], [address] MCHC (RBC) [Mass/Vol] 32.6 g/dL Normal 32-36 [facility] Comment on above: Performed By: #### L 504.2610, L3100.5000, L100.0100, L500.4050, L100.9950 ####[facility] [address] [place], [address] MCV (RBC) [Entitic vol] 92.2 fL Normal 81-99 [facility] Comment on above: Performed By: #### L 504.2610, L3100.5000, L100.0100, L500.4050, L100.9950 ####[facility] [address] [place], [address] Monocytes/100 WBC (Bld) 6.1 % Normal 0-10 [facility] Comment on above: Performed By: #### L 504.2610, L3100.5000, L100.0100, L500.4050, L100.9950 ####[facility] [address] [place], [address] Neutrophils/100 WBC (Bld) 69.4 % Normal 47-70 [facility] Comment on above: Performed By: #### L 504.2610, L3100.5000, L100.0100, L500.4050, L100.9950 ####[facility] [address] [place], [address] Nucleated RBC (Bld) [#/Vol] 0 10*3/uL Normal 0-5 [facility] Comment on above: Performed By: #### L 504.2610, L3100.5000, L100.0100, L500.4050, L100.9950 ####[facility] [address] [place], [address] Platelet mean volume (Bld) [Entitic vol] 9.9 fL Normal 6.2-12.0 [facility] Comment on above: Performed By: #### L 504.2610, L3100.5000, L100.0100, L500.4050, L100.9950 ####[facility] [address] [place], [address] Platelets (Bld) [#/Vol] 250 10*3/uL Normal 150-450 [facility] Comment on above: Performed By: #### L 504.2610, L3100.5000, L100.0100, L500.4050, L100.9950 ####[facility] [address] [place], [address] RBC (Bld) [#/Vol] 4.62 10*6/uL Normal 4.2-5.4 [facility] Comment on above: Performed By: #### L 504.2610, L3100.5000, L100.0100, L500.4050, L100.9950 ####[facility] [address] [place], [address] RDW SD 43.4 fl Normal 35.1-43.9 [facility] Comment on above: Performed By: #### L 504.2610, L3100.5000, L100.0100, L500.4050, L100.9950 ####[facility] [address] [place], [address] WBC (Bld) [#/Vol] 8.2 10*3/uL Normal 4.4-11.0 [facility] Comment on above: Performed By: #### L 504.2610, L3100.5000, L100.0100, L500.4050, L100.9950 ####[facility] [address] [place], [place], [address] Carbon dioxide measurementOr dered By: Imani Persaud on 01-10-2025 CO2 [Moles/Vol] 25.5 mmol/L 22.0-29.0 [facility] Chloride measurementOrdered By: Imani Persaud on 01-10-2025 Chloride [Moles/Vol] 103 mmol/L 96-108 [facility] Comprehensive Metabolic Prof ilon 01-10-2025 CO2 [Moles/Vol] 25.5 mmol/L Normal 22.0-29.0 [facility] Comment on above: Performed By: #### L 504.2610, L3100.5000, L100.0100, L500.4050, L100.9950 ####[facility] [address] [place], [place], [id number] Eosinophil percentageOrdered By: Imani Persaud on 01-10-2025 Eosinophils/100 WBC (Bld) 3.7 % 0-5 [facility] Erythrocyte distribution wid th ratioOrdered By: [facility] Pers[facility] on 01-10-2025 Erythrocyte distribution width (RBC) [Ratio] 13.0 % 11.6-14.6 [facility] Erythrocyte distribution wid th standard deviationOrdered By: [facility] Persaud on 01-10-2025 Erythrocyte distribution width (RBC) [Entitic vol] 43.4 fL 35.1-43.9 [facility] Erythrocyte distribution width (RBC) [Ratio] 43.4 fl 35.1-43.9 [facility] GFR/1.73 sq M.predicted leisa g non-blacks MDRD (S/P/Bld) [Vol rate/Area]Ordered By: Imani Persaud on 01-10-2025 Estimated GFR (MDRD) Non-Af Amer 107 >60 [facility] Comment on above: mL/min/1.73m2 CKD-EP I Creatinine Equation (2020) Glomerular filtration rate ( GFR) estimation/1.73 sq m using serum, plasma, or whole bOrdered By: Imani Persaud on 01-10-2025 GFR/1.73 sq M.predicted among non-blacks MDRD (S/P/Bld) [Vol rate/Area] 107 mL/min/{1.73_m2} >60 [facility] Comment on above: mL/min/1.73m2 CKD-EP I Creatinine Equation (2020) Hematocrit Auto (Bld) [Volum e fraction]Ordered By: Imani Persaud on 01-10-2025 Hematocrit (Bld) [Volume fraction] 42.6 % 37-47 [facility] Hemoglobin (Reticulocytes) [ Entitic mass]Ordered By: Imani Persaud on 01-10-2025 Reticulocyte Hemoglobin Equivalent 29.6 pg Low 30-35 [facility] Hemoglobin measurementOrdere d By: Imani Persaud on 01-10-2025 Hemoglobin (Bld) [Mass/Vol] 13.9 g/dL 12.0-15.0 [facility] Immature granulocytes/100 WB C Auto (Bld)Ordered By: [facility] Pers[facility] on 01-10-2025 Immature granulocytes/100 WBC (Bld) 0.600 % 0.0-0.9 [facility] Comment on above: IG% - Immature Granu locytes (promyelocytes, myelocytes and metamyelocytes) > 1% indicates that a LEFT SHIFT is Present. Immature reticulocyte fracti onOrdered By: Imani Persaud on 01-10-2025 Immature Reticulocyte Fraction 22.90 % High 3.00-15.90 [facility] LDHon 01-10-2025 LDH 234 U/L Normal 84-246 [facility] Comment on above: Order Comment: 1 Performed By: #### L 504.2610, L3100.5000, L100.0100, L500.4050, L100.9950 ####[facility] [address] [place], [address] Laboratory - Chemistry and C hemistry - challengeOrdered By: Imani Persaud on 01-10-2025 AST [Catalytic activity/Vol] 26 U/L <32 [facility] Lactate dehydrogenase (LDH) measurementOrdered By: [facility] Pers[facility] on 01-10-2025 LDH [Catalytic activity/Vol] 234 U/L 84-246 [facility] Lymphocytes Auto (Unsp spec) [#/Vol]Ordered By: Imani Persaud on 01-10-2025 Lymphocytes (Bld) [#/Vol] 1.58 10*3/uL 0.83-4.51 [facility] Lymphocytes/100 WBC Auto (Un sp spec)Ordered By: Imani Persaud on 01-10-2025 Lymphocytes/100 WBC (Bld) 19.3 % 19-41 [facility] MCV (mean corpuscular volume ) determinationOrdered By: Imani Persaud on 01-10-2025 MCV (RBC) [Entitic vol] 92.2 fL 81-99 [facility] Mean corpuscular hemoglobin (MCH) determinationOrdered By: Imani Persaud on 01-10-2025 MCH (RBC) [Entitic mass] 30.1 pg 27.0-32.0 [facility] Mean corpuscular hemoglobin concentration (MCHC) determinationOrdered By: Imani Persaud on 01-10-2025 MCHC (RBC) [Mass/Vol] 32.6 g/dL 32-36 [facility] Mean platelet volume determi nationOrdered By: Imani Persaud on 01-10-2025 Platelet mean volume (Bld) [Entitic vol] 9.9 fL 6.2-12.0 [facility] Monocyte percentageOrdered B y: Imani Persaud on 01-10-2025 Monocytes/100 WBC (Bld) 6.1 % 0-10 [facility] Neutrophil percentageOrdered By: Imani Persaud on 01-10-2025 Neutrophils/100 WBC (Bld) 69.4 % 47-70 [facility] Nucleated red blood cell per centageOrdered By: Imani Persaud on 01-10-2025 Nucleated RBC/100 WBC (Bld) [Ratio] 0 % 0-5 [facility] Oncology Visit Reporton 12-17 Oncology Visit Report Normal [facility] Platelet countOrdered By: Jonatan Persaud on 01-10-2025 Platelets (Bld) [#/Vol] 250 10*3/uL 150-450 [facility] RBC Auto (Bld) [#/Vol]Ordere d By: Imani Persaud on 01-10-2025 RBC (Bld) [#/Vol] 4.62 10*6/uL 4.2-5.4 [facility] Retic Panelon 01-10-2025 IM RET FRACTION 22.90 High 3.00-15.90 [facility] Comment on above: Performed By: #### L 504.2610, L3100.5000, L100.0100, L500.4050, L100.9950 ####[facility] [address] [place], [address] RET-HE 29.6 pg Low 30-35 [facility] Comment on above: Performed By: #### L 504.2610, L3100.5000, L100.0100, L500.4050, L100.9950 ####[facility] [address] [place], [address] Retic Count 2.15 High 0.5-1.5 [facility] Comment on above: Performed By: #### L 504.2610, L3100.5000, L100.0100, L500.4050, L100.9950 ####[facility] [address] [place], [address] Reticulocyte hemoglobin equi valent (RET-He) measurementOrdered By: Imani Persaud on 01-10-2025 Hemoglobin (Reticulocytes) [Entitic mass] 29.6 pg Low 30-35 [facility] Reticulocytes Auto (Bld) [#/ Vol]Ordered By: Imani Persaud on 01-10-2025 Reticulocyte Count 2.15 % High 0.5-1.5 [facility] Reticulocytes/100 RBC (Bld) 2.15 % High 0.5-1.5 [facility] Serum creatinine measurement (mass/volume)Ordered By: Imani Persaud on 01-10-2025 Creatinine [Mass/Vol] 0.6 mg/dL 0.70-1.20 [facility] Serum globulin measurementOr dered By: Imani Persaud on 01-10-2025 Globulin (S) [Mass/Vol] 4.1 g/dL 2.2-4.2 [facility] Serum glucose measurement (m ass/volume)Ordered By: Imani Persaud on 01-10-2025 Glucose [Mass/Vol] 95 mg/dL 70-99 [facility] Serum or plasma alanine del rio otransferase (ALT) measurementOrdered By: Imani Persaud on 01-10-2025 ALT [Catalytic activity/Vol] 20 U/L <35 [facility] Serum or plasma albumin cass urement (mass/volume)Ordered By: Imani Persaud on 01-10-2025 Albumin [Mass/Vol] 3.7 g/dL 3.5-5.0 [facility] Serum or plasma albumin/glob ulin mass ratioOrdered By: Imani Persaud on 01-10-2025 Albumin/Globulin [Mass ratio] 0.9 {ratio} 0.9-2.4 [facility] Serum or plasma alkaline tre sphatase measurementOrdered By: Imani Persaud on 01-10-2025 ALP [Catalytic activity/Vol] 92 U/L 35-104 [facility] Serum or plasma anion gap de termination (moles/volume)Ordered By: Imani Persaud on 01-10-2025 Anion gap [Moles/Vol] 10 mmol/L 5-15 [facility] Serum or plasma calcium cass urement (mass/volume)Ordered By: Imani Persaud on 01-10-2025 Calcium [Mass/Vol] 8.9 mg/dL 7.6-11.0 [facility] Serum or plasma potassium me asurementOrdered By: Imani Persaud on 01-10-2025 Potassium [Moles/Vol] 4.2 mmol/L 3.3-5.1 [facility] Serum or plasma sodium measu rement (moles/volume)Ordered By: Imani Persaud on 01-10-2025 Sodium [Moles/Vol] 138 mmol/L 133-145 [facility] Serum or plasma urea nitroge n measurement (mass/volume)Ordered By: Imani Persaud on 01-10-2025 Urea nitrogen [Mass/Vol] 12 mg/dL 4-19 [facility] Total proteinOrdered By: Lonnie Persaud on 01-10-2025 Protein [Mass/Vol] 7.8 g/dL 5.9-8.4 [facility] Urine Cultureon 01-10-2025 URC Mixed Gram Positive Organisms [place] Count 25,000-50,000 [facility] Mixed contaminants. Submit a new specimen if indicated. Normal [facility] Comment on above: Performed By: #### M 100.9982 ####[facility] [address] [place], [address] White blood cell (WBC) count Ordered By: Imani Cori on 01-10-2025 WBC (Bld) [#/Vol] 8.2 10*3/uL 4.4-11.0 [facility] Abdomen/Pelvis W IV Cont ONL Yon 01-08-2025 Abdomen/Pelvis W IV Cont ONLY Normal [facility] Absolute lymphocyte countOrd ered By: ED PROVIDER on 01-08-2025 Lymphocytes Auto (Unsp spec) [#/Vol] 1.90 10*3/uL 0.83-4.51 [facility] Absolute neutrophil countOrd ered By: ED PROVIDER on 01-08-2025 Neutrophils (Bld) [#/Vol] 6.6 10*3/uL 2.0-7.7 [facility] Albumin to globulin ratioOrd ered By: ED PROVIDER on 01-08-2025 Albumin/Globulin [Mass ratio] 0.6 {ratio} Low 0.9-2.4 [facility] Automated lymphocyte count a s percentage of total leukocytesOrdered By: ED PROVIDER on 01-08-2025 Lymphocytes/100 WBC Auto (Unsp spec) 20.3 % 19-41 [facility] Basophil percentageOrdered B y: ED PROVIDER on 01-08-2025 Basophils/100 WBC (Bld) 0.6 % 0-1 [facility] Bilirubin Test strip Ql (U)O rdered By: Isaiah Villanueva on 01-08-2025 Bilirubin Ql (U) Negative Negative [facility] Bilirubin, totalOrdered By: ED PROVIDER on 01-08-2025 Bilirubin [Mass/Vol] 1.20 mg/dL High 0.20-1.00 [facility] Comment on above: For patients on eltr ombopag therapy, use of Dimension [place] TBIL is not recommended. Blood urea nitrogen (BUN)/cr eatinine ratioOrdered By: ED PROVIDER on 01-08-2025 Urea nitrogen/Creatinine [Mass ratio] 19.1 mg/mg - [facility] CBC W/Diff, Automatedon 12-17 Absolute Lymph 1.90 X10 3/uL Normal 0.83-4.51 [facility] Comment on above: Performed By: #### L 100.0100, L501.2450, L500.4050 ####[facility] [address] [place], [address] Absolute Neut 6.6 X10 3/uL Normal 2.0-7.7 [facility] Comment on above: Performed By: #### L 100.0100, L501.2450, L500.4050 ####[facility] [address] [place], [address] Basophils/100 WBC (Bld) 0.6 % Normal 0-1 [facility] Comment on above: Performed By: #### L 100.0100, L501.2450, L500.4050 ####[facility] [address] [place], [address] Eosinophils/100 WBC (Bld) 1.8 % Normal 0-5 [facility] Comment on above: Performed By: #### L 100.0100, L501.2450, L500.4050 ####[facility] [address] [place], [address] Erythrocyte distribution width (RBC) [Ratio] 13.2 % Normal 11.6-14.6 [facility] Comment on above: Performed By: #### L 100.0100, L501.2450, L500.4050 ####[facility] [address] [place], [address] Hematocrit (Bld) [Volume fraction] 43.8 % Normal 37-47 [facility] Comment on above: Performed By: #### L 100.0100, L501.2450, L500.4050 ####[facility] [address] [place], [address] Hemoglobin (Bld) [Mass/Vol] 14.7 g/dL Normal 12.0-15.0 [facility] Comment on above: Performed By: #### L 100.0100, L501.2450, L500.4050 ####[facility] [address] [place], [address] IG% 0.300 Normal 0.0-0.9 [facility] Comment on above: Result Comment: IG% - Immature Granulocytes (promyelocytes, myelocytes andmetamyelocytes) > 1% indicates that a LEFT SHIFT is Present. Performed By: #### L 100.0100, L501.2450, L500.4050 ####[facility] [address] [place], [address] Lymphocytes/100 WBC (Bld) 20.3 % Normal 19-41 [facility] Comment on above: Performed By: #### L 100.0100, L501.2450, L500.4050 ####[facility] [address] [place], [address] MCH (RBC) [Entitic mass] 29.8 pg Normal 27.0-32.0 [facility] Comment on above: Performed By: #### L 100.0100, L501.2450, L500.4050 ####[facility] [address] [place], [address] MCHC (RBC) [Mass/Vol] 33.6 g/dL Normal 32-36 [facility] Comment on above: Performed By: #### L 100.0100, L501.2450, L500.4050 ####[facility] [address] [place], [address] MCV (RBC) [Entitic vol] 88.7 fL Normal 81-99 [facility] Comment on above: Performed By: #### L 100.0100, L501.2450, L500.4050 ####[facility] [address] [place], [address] Monocytes/100 WBC (Bld) 6.3 % Normal 0-10 [facility] Comment on above: Performed By: #### L 100.0100, L501.2450, L500.4050 ####[facility] [address] [place], [address] Neutrophils/100 WBC (Bld) 70.7 % High 47-70 [facility] Comment on above: Performed By: #### L 100.0100, L501.2450, L500.4050 ####[facility] [address] [place], [address] Nucleated RBC (Bld) [#/Vol] 0 10*3/uL Normal 0-5 [facility] Comment on above: Performed By: #### L 100.0100, L501.2450, L500.4050 ####[facility] [address] [place], [address] Platelet mean volume (Bld) [Entitic vol] 9.7 fL Normal 6.2-12.0 [facility] Comment on above: Performed By: #### L 100.0100, L501.2450, L500.4050 ####[facility] [address] [place], [address] Platelets (Bld) [#/Vol] 237 10*3/uL Normal 150-450 [facility] Comment on above: Performed By: #### L 100.0100, L501.2450, L500.4050 ####[facility] [address] [place], [address] RBC (Bld) [#/Vol] 4.94 10*6/uL Normal 4.2-5.4 [facility] Comment on above: Performed By: #### L 100.0100, L501.2450, L500.4050 ####[facility] [address] [place], [address] RDW SD 42.5 fl Normal 35.1-43.9 [facility] Comment on above: Performed By: #### L 100.0100, L501.2450, L500.4050 ####[facility] [address] [place], [address] WBC (Bld) [#/Vol] 9.4 10*3/uL Normal 4.4-11.0 [facility] Comment on above: Performed By: #### L 100.0100, L501.2450, L500.4050 ####[facility] [address] [place], [address] Carbon dioxide measurementOr dered By: ED PROVIDER on 01-08-2025 CO2 [Moles/Vol] 29.0 mmol/L 21.0-32.0 [facility] Chloride measurementOrdered By: ED PROVIDER on 01-08-2025 Chloride [Moles/Vol] 100 mmol/L 98-107 [facility] Comprehensive Metabolic Prof ilon 01-08-2025 Albumin [Mass/Vol] 3.0 g/dL Low 3.2-5.0 [facility] Comment on above: Performed By: #### L 100.0100, L501.2450, L500.4050 ####[facility] [address] [place], [address] Albumin/Globulin [Mass ratio] 0.6 {ratio} Low 0.9-2.4 [facility] Comment on above: Performed By: #### L 100.0100, L501.2450, L500.4050 ####[facility] [address] [place], [address] ALK P 98 U/L Normal 45-117 [facility] Comment on above: Performed By: #### L 100.0100, L501.2450, L500.4050 ####[facility] [address] [place], [address] ALT [Catalytic activity/Vol] 23 U/L Normal 13-56 [facility] Comment on above: Performed By: #### L 100.0100, L501.2450, L500.4050 ####[facility] [address] [place], [address] AST [Catalytic activity/Vol] 16 U/L Normal 15-37 [facility] Comment on above: Performed By: #### L 100.0100, L501.2450, L500.4050 ####[facility] [address] [place], [address] Bilirubin [Mass/Vol] 1.20 mg/dL High 0.20-1.00 [facility] Comment on above: Result Comment: For patients on eltrombopag therapy, use of Dimension [place] TBIL is not recommended. Performed By: #### L 100.0100, L501.2450, L500.4050 ####[facility] [address] [place], [address] BUN/CRE 19.1 RATIO Normal 10-20 [facility] Comment on above: Performed By: #### L 100.0100, L501.2450, L500.4050 ####[facility] [address] [place], [address] CA,Total 9.5 mg/dL Normal 8.5-10.1 [facility] Comment on above: Performed By: #### L 100.0100, L501.2450, L500.4050 ####[facility] [address] [place], [address] Chloride [Moles/Vol] 100 mmol/L Normal 98-107 [facility] Comment on above: Performed By: #### L 100.0100, L501.2450, L500.4050 ####[facility] [address] [place], [address] CO2 [Moles/Vol] 29.0 mmol/L Normal 21.0-32.0 [facility] Comment on above: Performed By: #### L 100.0100, L501.2450, L500.4050 ####[facility] [address] [place], [address] Creatinine [Mass/Vol] 0.73 mg/dL Normal 0.55-1.02 [facility] Comment on above: Result Comment: The validity of the calculated GFR GFRAA in patients over70 years has not been determined. Clinical correlation isessential. Performed By: #### L 100.0100, L501.2450, L500.4050 ####[facility] [address] [place], [address] ECRCL 110.63 ml/min Normal [facility] Comment on above: Performed By: #### L 100.0100, L501.2450, L500.4050 ####[facility] [address] [place], [address] EST GFR - AA 106 mL/min Normal >60 [facility] Comment on above: Result Comment: Afri can French GFR Calc Performed By: #### L 100.0100, L501.2450, L500.4050 ####[facility] [address] [place], [address] GAP 7 Normal 5-15 [facility] Comment on above: Performed By: #### L 100.0100, L501.2450, L500.4050 ####[facility] [address] [place], [address] GFR/1.73 sq M.predicted among non-blacks MDRD (S/P/Bld) [Vol rate/Area] 88 mL/min/{1.73_m2} Normal >60 [facility] Comment on above: Result Comment: Non- GFR Calc Performed By: #### L 100.0100, L501.2450, L500.4050 ####[facility] [address] [place], [address] Globulin (S) [Mass/Vol] 5.4 g/dL High 2.2-4.2 [facility] Comment on above: Performed By: #### L 100.0100, L501.2450, L500.4050 ####[facility] [address] [place], [address] Glucose [Mass/Vol] 119 mg/dL High 74-106 [facility] Comment on above: Result Comment: Fast ing Glucose result from 100 to 125 mg/dLsuggests IMPAIRED HOMEOSTASIS per A.D.A. criteria. Performed By: #### L 100.0100, L501.2450, L500.4050 ####[facility] [address] [place], [address] Potassium [Moles/Vol] 4.4 mmol/L Normal 3.5-5.1 [facility] Comment on above: Performed By: #### L 100.0100, L501.2450, L500.4050 ####[facility] [address] [place], [address] Sodium [Moles/Vol] 136 mmol/L Normal 136-145 [facility] Comment on above: Performed By: #### L 100.0100, L501.2450, L500.4050 ####[facility] [address] [place], [address] T PROT 8.4 g/dL High 6.4-8.2 [facility] Comment on above: Performed By: #### L 100.0100, L501.2450, L500.4050 ####[facility] [address] [place], [address] Urea nitrogen [Mass/Vol] 14 mg/dL Normal 7-18 [facility] Comment on above: Performed By: #### L 100.0100, L501.2450, L500.4050 ####[facility] [address] [place], [address] Emergency Department Summary on 01-08-2025 Emergency Department Summary Normal [facility] Eosinophil percentageOrdered By: ED PROVIDER on 01-08-2025 Eosinophils/100 WBC (Bld) 1.8 % 0-5 [facility] Epithelial cells.squamous LM Ql (Urine sed)Ordered By: Isaiah Villanueva on 01-08-2025 Epithelial cells.squamous LM.HPF (Urine sed) [#/Area] 0 /[HPF] 5-10 [facility] Erythrocyte distribution wid th ratioOrdered By: ED PROVIDER on 01-08-2025 Erythrocyte distribution width (RBC) [Ratio] 13.2 % 11.6-14.6 [facility] Erythrocyte distribution wid th standard deviationOrdered By: ED PROVIDER on 01-08-2025 Erythrocyte distribution width (RBC) [Entitic vol] 42.5 fL 35.1-43.9 [facility] Erythrocyte distribution width (RBC) [Ratio] 42.5 fl 35.1-43.9 [facility] Estimated glomerular filtrat ion rate (GFR) AmericanOrdered By: ED PROVIDER on 01-08-2025 Estimated GFR (MDRD) Amer 106 mL/min >60 [facility] Comment on above: GFR Calc Estimation of creatinine tapan aranceOrdered By: ED PROVIDER on 01-08-2025 Estimated Creatinine Clearance Calc 110.63 ml/min [facility] Glomerular filtration rate ( GFR) estimationOrdered By: ED PROVIDER on 01-08-2025 Estimated GFR (MDRD) Non-Af Amer 88 mL/min >60 [facility] Comment on above: Non- GFR Calc GFR/1.73 sq M.predicted among non-blacks MDRD (S/P/Bld) [Vol rate/Area] 88 mL/min/{1.73_m2} >60 [facility] Comment on above: Non- GFR Calc Glucose Ql (U)Ordered By: Ramón Villanueva on 01-08-2025 Urine Glucose (UA) Normal mg/dl Normal [facility] Glucose measurementOrdered B y: ED PROVIDER on 01-08-2025 Glucose [Mass/Vol] 119 mg/dL High 74-106 [facility] Comment on above: Fasting Glucose resu lt from 100 to 125 mg/dL suggests IMPAIRED HOMEOSTASIS per A.D.A. criteria. Hematocrit Auto (Bld) [Volum e fraction]Ordered By: ED PROVIDER on 01-08-2025 Hematocrit (Bld) [Volume fraction] 43.8 % 37-47 [facility] Hemoglobin measurementOrdere d By: ED PROVIDER on 01-08-2025 Hemoglobin (Bld) [Mass/Vol] 14.7 g/dL 12.0-15.0 [facility] Immature granulocytes/100 WB C Auto (Bld)Ordered By: ED PROVIDER on 01-08-2025 Immature granulocytes/100 WBC (Bld) 0.300 % 0.0-0.9 [facility] Comment on above: IG% - Immature Granu locytes (promyelocytes, myelocytes and metamyelocytes) > 1% indicates that a LEFT SHIFT is Present. Ketones Test strip Ql (U)Ord ered By: Isaiah Villanueva on 01-08-2025 Ketones Ql (U) Negative Negative [facility] Laboratory - Chemistry and C hemistry - challengeOrdered By: ED PROVIDER on 01-08-2025 AST [Catalytic activity/Vol] 16 U/L 15-37 [facility] Lipaseon 01-08-2025 Lipase [Catalytic activity/Vol] 18 U/L Low 73-393 [facility] Comment on above: Performed By: #### L 100.0100, L501.2450, L500.4050 ####[facility] [address] [place], [address] Lipase measurementOrdered By : ED PROVIDER on 01-08-2025 Lipase [Catalytic activity/Vol] 18 U/L Low 73-393 [facility] Lymphocytes Auto (Unsp spec) [#/Vol]Ordered By: ED PROVIDER on 01-08-2025 Lymphocytes (Bld) [#/Vol] 1.90 10*3/uL 0.83-4.51 [facility] Lymphocytes/100 WBC Auto (Un sp spec)Ordered By: ED PROVIDER on 01-08-2025 Lymphocytes/100 WBC (Bld) 20.3 % 19-41 [facility] MCV (mean corpuscular volume ) determinationOrdered By: ED PROVIDER on 01-08-2025 MCV (RBC) [Entitic vol] 88.7 fL 81-99 [facility] Mean corpuscular hemoglobin (MCH) determinationOrdered By: ED PROVIDER on 01-08-2025 MCH (RBC) [Entitic mass] 29.8 pg 27.0-32.0 [facility] Mean corpuscular hemoglobin concentration (MCHC) determinationOrdered By: ED PROVIDER on 01-08-2025 MCHC (RBC) [Mass/Vol] 33.6 g/dL 32-36 [facility] Mean platelet volume determi nationOrdered By: ED PROVIDER on 01-08-2025 Platelet mean volume (Bld) [Entitic vol] 9.7 fL 6.2-12.0 [facility] Microscopic analysis of urin e for red blood cells (RBC)Ordered By: Isaiah Villanueva on 01-08-2025 Microscopic analysis of urine for red blood cells (RBC) 0-5 SEEN /hpf 0-5 [facility] Urine RBC 0-5 SEEN /hpf 0-5 [facility] Monocyte percentageOrdered B y: ED PROVIDER on 01-08-2025 Monocytes/100 WBC (Bld) 6.3 % 0-10 [facility] Mucus LM Ql (Urine sed)Order ed By: Isaiah Villanueva on 01-08-2025 Mucus Ql (Urine sed) 1+ /hpf [facility] Neutrophil percentageOrdered By: ED PROVIDER on 01-08-2025 Neutrophils/100 WBC (Bld) 70.7 % High 47-70 [facility] Nitrite Test strip Ql (U)Ord ered By: Isaiah Villanueva on 01-08-2025 Nitrite Ql (U) Negative Negative [facility] Nucleated red blood cell per centageOrdered By: ED PROVIDER on 01-08-2025 Nucleated RBC/100 WBC (Bld) [Ratio] 0 % 0-5 [facility] Platelet countOrdered By: ED PROVIDER on 01-08-2025 Platelets (Bld) [#/Vol] 237 10*3/uL 150-450 [facility] Potassium measurementOrdered By: ED PROVIDER on 01-08-2025 Potassium [Moles/Vol] 4.4 mmol/L 3.5-5.1 [facility] Protein Test strip Ql (U)Ord ered By: Isaiah Villanueva on 01-08-2025 Protein Ql (U) 30 mg/dl High Negative [facility] RBC Auto (Bld) [#/Vol]Ordere d By: ED PROVIDER on 01-08-2025 RBC (Bld) [#/Vol] 4.94 10*6/uL 4.2-5.4 [facility] Serum anion gap measurementO rdered By: ED PROVIDER on 01-08-2025 Anion gap [Moles/Vol] 7 mmol/L 5-15 [facility] Serum globulin measurementOr dered By: ED PROVIDER on 01-08-2025 Globulin (S) [Mass/Vol] 5.4 g/dL High 2.2-4.2 [facility] Serum or plasma alanine del rio otransferase (ALT) measurementOrdered By: ED PROVIDER on 01-08-2025 ALT [Catalytic activity/Vol] 23 U/L 13-56 [facility] Serum or plasma albumin cass urement (mass/volume)Ordered By: ED PROVIDER on 01-08-2025 Albumin [Mass/Vol] 3.0 g/dL Low 3.2-5.0 [facility] Serum or plasma alkaline tre sphatase measurementOrdered By: ED PROVIDER on 01-08-2025 ALP [Catalytic activity/Vol] 98 U/L 45-117 [facility] Serum or plasma calcium cass urement (mass/volume)Ordered By: ED PROVIDER on 01-08-2025 Calcium [Mass/Vol] 9.5 mg/dL 8.5-10.1 [facility] Serum or plasma creatinine m easurement (mass/volume)Ordered By: ED PROVIDER on 01-08-2025 Creatinine [Mass/Vol] 0.73 mg/dL 0.55-1.02 [facility] Comment on above: The validity of the calculated GFR & GFRAA in patients over 70 years has not been determined. Clinical correlation is essential. Serum or plasma urea nitroge n measurement (mass/volume)Ordered By: ED PROVIDER on 01-08-2025 Urea nitrogen [Mass/Vol] 14 mg/dL 7-18 [facility] Sodium levelOrdered By: ED P VINITA on 01-08-2025 Sodium [Moles/Vol] 136 mmol/L 136-145 [facility] Squamous epithelial cells de tection in urine sediment by light microscopyOrdered By: Isaiah Villanueva on 01-08-2025 Epithelial cells.squamous LM Ql (Urine sed) 0-5 SEEN /hpf 5-10 [facility] Total proteinOrdered By: ED PROVIDER on 01-08-2025 Protein [Mass/Vol] 8.4 g/dL High 6.4-8.2 [facility] Urinalysis, Completeon 01-08 BACTERIA 2+ /hpf Normal None Seen [facility] Comment on above: Order Comment: COLOR OF URINE MAY AFFECT DIPSTICK RESULTS.CLEAN CATCH Performed By: #### L 400.0001 ####[facility] [address] [place], [place], [address] EPI,SQUAMOUS 0-5 SEEN Normal 5-10 [facility] Comment on above: Order Comment: COLOR OF URINE MAY AFFECT DIPSTICK RESULTS.CLEAN CATCH Performed By: #### L 400.0001 ####[facility] [address] [place], [address] Mucus Ql (Urine sed) 1+ /hpf Normal [facility] Comment on above: Order Comment: COLOR OF URINE MAY AFFECT DIPSTICK RESULTS.CLEAN CATCH Performed By: #### L 400.0001 ####[facility] [address] [place], [address] RBC 0-5 SEEN Normal 0-5 [facility] Comment on above: Order Comment: COLOR OF URINE MAY AFFECT DIPSTICK RESULTS.CLEAN CATCH Performed By: #### L 400.0001 ####[facility] [address] [place], [place], [address] WBC 5-10 SEEN Normal 0-5 [facility] Comment on above: Order Comment: COLOR OF URINE MAY AFFECT DIPSTICK RESULTS.CLEAN CATCH Performed By: #### L 400.0001 ####[facility] [address] [place], [place], [address] Urine blood detectionOrdered By: Isaiah Villanueva on 01-08-2025 Urine Occult Blood 50 /ul High Negative [facility] Urine clarityOrdered By: Misty Villanueva on 01-08-2025 Clarity (U) Sl. Cloudy Clear [facility] Urine color determinationOrd ered By: Isaiah Villanueva on 01-08-2025 Color (U) Mirna Yellow [facility] Urine cultureOrdered By: Rose Santos on 01-08-2025 Bacteria identified Cx Nom (U) Positive Abnormal [facility] Urine glucose detectionOrder ed By: Isaiah Villanueva on 01-08-2025 Glucose Ql (U) Normal mg/dl Normal [facility] Urine leukocyte esterase det ection by dipstickOrdered By: Isaiah Villanueva on 01-08-2025 Leukocyte esterase Test strip Ql (U) 100 /ul High Negative [facility] Urine pHOrdered By: Isaiah ventura on 01-08-2025 pH (U) 6.0 [pH] 5.0 - 8.0 [facility] Urine sediment bacteria coun t by microscopy (number/high power field)Ordered By: Isaiah Villanueva on 01-08-2025 Bacteria LM.HPF (Urine sed) [#/Area] 2 /[HPF] None Seen [facility] Urine specific gravity measu rementOrdered By: Isaiah Villanueva on 01-08-2025 Specific gravity (U) [Rel density] 1.015 1.002-1.030 [facility] Urine urobilinogen measureme ntOrdered By: Isaiah Villanueva on 01-08-2025 Urobilinogen Ql (U) 4 mg/dl High Normal [facility] Urobilinogen Ql (U)Ordered B y: Isaiah Villanueva on 01-08-2025 Urobilinogen (U) [Mass/Vol] 4 mg/dL High Normal [facility] White blood cell (WBC) count Ordered By: ED PROVIDER on 01-08-2025 WBC (Bld) [#/Vol] 9.4 10*3/uL 4.4-11.0 [facility] White blood cell countOrdere d By: Isaiah Kay on 01-08-2025 Urine WBC 5-10 SEEN /hpf 0-5 [facility] White blood cell count 5-10 SEEN /hpf 0-5 [facility] Bacteria Ur Culton Bacteria identified Cx Nom (U) ORGANISM ID: 1 10,000 -<50,000 CFU/ml Normal urogenital marianela Normal [facility] Comment on above: Performed By: #### 6 30-4 ####[facility] LABCLIA [id number] [address] OF [facility] CNOVon 12-24-2024 CNOV Office Visit (UCWSTR ) -- UZMA MCDONALD ([id number]) 1970 F Date Time Provider Department 12/24/24 1:45 PM ISAÍAS RIBEIRO [facility] During your visit today, we recorded the following information about you: Temperature Pulse Respiration Blood pressure 97.8 degrees 80/minute 18/minute 126/68 Weight 110.6 kg Isaías Ribeiro APRN.CLASSIFICATION OFFICER 12/24/2024 2:08 PM Signed Subjective HPI Nontoxic-appearing [...] CORONARY PLAT CHROMIUM BARE METAL STENT SYS [id number], 144 CM 06/26/2014 REMOVAL GALLBLADDER 2013 SUPRACERVICAL [...] or oc (more content not included)... [facility] DIP, URINE (POC)on 2024 BILIRUBIN UA (POCT) Negative Negative [facility] CLARITY UA (POCT) Slightly Cloudy Cl [facility] COLOR UA (POCT) Dark yellow [facility] GLUCOSE UA (POCT) Negative Negative mg/dL [facility] Hemoglobin Ql (U) Moderate Abnormal Negative [facility] Interpretation and review of laboratory results Abnormal [facility] KETONE UA (POCT) Negative Negative mg/dL [facility] LEUKOCYTES UA (POCT) Trace Abnormal [facility] NITRITE UA (POCT) Negative Negative [facility] PH UA (POCT) 6.5 4.5 - 8.0 [facility] Protein Ql (U) 100 mg/dL Abnormal Negative [facility] SPECIFIC GRAVITY UA (POCT) 1.025 1.005 - 1.030 [facility] UROBILINOGEN UA (POCT) 1 Judith l E.U./dL [facility] Location:[facility], [address] [place] [address], [place], [place], [id number] [place] [address] POINT OF CARE [facility] 10-03-2024 JAIRON Telephone (DORIS) -- UZMA MCDONALD ([id number]) 1970 F Date Time Provider Department 10/03/24 [...] Date Reviewed: 08/02/2024 Reviewed by: Isaías Ribeiro APRN.CLASSIFICATION OFFICER - Fully Assessed Reason for Visit: Results [...] 30-34.9 [E66.811] 06/29/2022 Coronary artery disease of [place] heart with st*07/27/2022 Hyperlipidemia, mixed [E78.2] 07/27/2022 Hyperglycemia [R73.9] 07/28/2022 Dizziness [R42] 12/10/2022 Heart murmur [R01.1] 05/27/2022 History of anemia [Z86.2] 01/26/2023 Menorrhagia with irregular cycle [N92.1] 11/30/2022 Encounter Status:Closed by ZOEY PINEDA on 10/09/24 Normal [facility] BRITTANY SCREENING W TOMOon 09-29 BRITTANY SCREENING W ALFONSO * * *Final Report* * * DATE OF EXAM: Sep 29 2024 1:34PM WRW [id number] - BRITTANY SCREENING W ALFONSO / PROCEDURE REASON: Encounter for screening mammogram for breast cancer * * * * Physician Interpretation * * * * RESULT: [place] [address] [place] [address] HISTORY: Patient is 54 years old and [...] Roni Kang M.D. Electronically signed on: 10/03/2024 Telehealth Coordinator: PAU Transcribe Date/Time: Sep 29 2024 1:22P Dictated by: RONI KANG MD This examination was interpreted and the report reviewed and electronically signed by: RONI KANG MD on Oct 03 2024 1:30AM EST [id number] Normal [facility] Manish 09-25-2024 RICHY Telephone (RDXWS) -- UZMA MCDONALD ([id number]) 1970 F Date Time Provider Department 09/25/24 [...] Known Allergies) Date Reviewed: 08/02/2024 Reviewed by: sIaías Ribeiro APRN.CLASSIFICATION OFFICER - Fully Assessed Reason for Visit: Orders [681] Primary Visit Diagnosis:Encounter for screening mammogram for breast cancer [Z12.31] Order(s):BRITTANY HAMILTON [[id number]] Order #: [id number] FUTURE Prescriptions as of 09/25/2024 - albuterol [...] 30-34.9 [E66.811] 06/29/2022 Coronary artery disease of [place] heart with st*07/27/2022 Hyperlipidemia, mixed [E78.2] 07/27/2022 Hyperglycemia [R73.9] 07/28/2022 Dizziness [R42] 12/10/2022 Heart murmur [R01.1] 05/27/2022 History of anemia [Z86.2] 01/26/2023 Menorrhagia with irregular cycle [N92.1] 11/30/2022 Encounter Status:Closed by A[place] on 09/25/24 [facility] CNOVon 08-02-2024 CNOV Office Visit (UCWSTR ) -- UZMA MCDONALD ([id number]) 1970 F Date Time Provider Department 08/02/24 6:45 PM ISAÍAS RIBEIRO [facility] During your visit today, we recorded the following information about you: Temperature Pulse Respiration Blood pressure 98 degrees 93/minute 20/minute 119/76 Weight 111.5 kg Isaías Ribeiro, WASTE SALVAGER.CLASSIFICATION OFFICER 08/02/2024 7:54 PM Signed Subjective HPI Nontoxic-appearing [...] CORONARY PLAT CHROMIUM BARE METAL STENT SYS [id number], 144 CM 06/26/2014 REMOVAL GALLBLADDER 2013 SUPRACERVICAL [...] motion. Lymphad (more content not included)... Normal [facility] 08-02-2024 [facility] Telephone ([facility]) -- UZMA MCDONALD ([id number]) 1970 F Date Time Provider Department 08/02/24 ISAÍAS RIBEIRO [facility] During your visit today, we recorded the following information about you: Isaías Ribeiro APRN.CLASSIFICATION OFFICER 08/02/2024 7:52 PM Signed Please inform patient that chest x-ray is negative. Continue plan of care as discussed during visit. Hazel Marshall LPN 08/02/2024 7:58 PM Signed Patient notified.Hazel Marshall LPN Allergies As of Date: 08/02/2024 (No Known Allergies) Date Reviewed: 08/02/2024 Reviewed by: Isaías Ribeiro APRN.CLASSIFICATION OFFICER - Fully Assessed Reason for Visit: Results [...] 30-34.9 [E66.9] 06/29/2022 Coronary artery disease of [place] heart with st*07/27/2022 Hyperlipidemia, mixed [E78.2] 07/27/2022 Hyperglycemia [R73.9] 07/28/2022 Dizziness [R42] 12/10/2022 Heart murmur [R01.1] 05/27/2022 History of anemia [Z86.2] 01/26/2023 Menorrhagia with irregular cycle [N92.1] 11/30/2022 Encounter Status:Closed by HAZEL MARSHALL on 08/02/24 Normal [facility] XR CHEST 2V FRONTAL/LATon XR CHEST 2V [...] tissues: Unremarkable. IMPRESSION: No acute radiographic abnormality. Telehealth Coordinator: [facility] Transcribe Date/Time: Aug 02 2024 7:48P Dictated by : MARIA ELENA JONES MD This examination was interpreted and the report reviewed and electronically signed by: MARIA ELENA JONES MD on Aug 02 2024 7:48PM EST [id number] Normal [facility] XR Chest PA and Lateralon IMPRESSION: No acute radiographic abnormality. Telehealth Coordinator: [facility] Transcribe Date/Time: Aug 02 2024 7:48P Dictated [...] soft tissues: Unremarkable. DIVISION OF RADIOLOGY Provider, [facility] Leora [facility] - 08/02/2024 * * *Final Report* [...] Unremarkable. IMPRESSION IMPRESSION: No acute radiographic abnormality. Telehealth Coordinator: [facility] Transcribe Date/Time: Aug 02 2024 7:48P Dictated by : MARIA ELENA JONES MD This examination was interpreted and the report reviewed and electronically signed by: MARIA ELENA JONES MD on Aug 02 2024 7:48PM EST [facility] Radiology Study observation (narrative) [facility] XR Chest PA and LateralOrder ed By: Ccf Provider on 08-02-2024 [facility] CNOVon 04-18-2024 CNOV Office Visit (WSTR ) -- UZMA MCDONALD ([id number]) 1970 F Date Time Provider Department 04/18/24 12:15 PM JUANA LINTON [facility] During your visit today, we recorded [...] history is provided by the patient. No professor of languages was used. URI She complains of cough. [...] lens implant PAST SURGICAL HISTORY OF 03/31/2021 [employer] stent REBEL CORONARY PLAT CHROMIUM BARE METAL STENT SYS [id number], 144 CM 06/26/2014 REMOVAL GALLBLADDER 2013 SUPRACERVICAL [...] for enviro (more content not included)... Normal [facility] CNOVon 03-23-2024 CNOV Office Visit (UCWSTR ) -- HARRYUZMA ([id number]) 1970 F Date Time Provider Department 03/23/24 [...] Discussed expected course of illness Cinthya Vaughan APRN.CLASSIFICATION OFFICER ACUTE BRONCHITIS: You have acute bronchitis. This [...] 3 days of proper treatment. Cinthya Vaughan APRN.CLASSIFICATION OFFICER 03/23/2024 11:07 AM Signed Subjective Cough Associated [...] CORONARY PLAT CHROMIUM BARE METAL STENT SYS [id number], 144 CM 06/26/2014 REMOVAL GALLBLADDER 2013 SUPRACERVICAL [...] 4 day (more content not included)... Normal [facility] BRITTANY SCREENINGon 09-17-2023 [facility] XR Hand - right PA and Later al and Obliqueon 01-28-2023 IMPRESSION: Negative 3 views of the right hand. Telehealth Coordinator: [facility] Transcribe Date/Time: Jan 28 2023 8:19A Dictated by : BAILEE SYKES MD This examination was interpreted and the report reviewed and electronically signed by: BAILEE SYKES MD on Jan 28 2023 8:22AM [facility] DIVISION OF RADIOLOGY * * *Final [...] swelling. DIVISION OF RADIOLOGY Provider, Wilman tolentino [place] - 01/28/2023 * * *Final Report* * [...] Negative 3 views of the right hand. Telehealth Coordinator: [facility] Transcribe Date/Time: Jan 28 2023 8:19A Dictated by : BAILEE SYKES MD This examination was interpreted and the report reviewed and electronically signed by: BAILEE SYKES MD on Jan 28 2023 8:22AM EST [facility] XR Hand - right PA and Later al and ObliqueOrdered By: Ccf Provider on 01-28-2023 [facility] No Panel Informationon 01-26 Radiology Study observation (narrative) [facility] XR ELBOW GENERAL 2V AP/LAT R IGHTon 01-26-2023 [facility] XR Elbow - right AP and Late ralon 01-26-2023 IMPRESSION: Mild sof t tissue calcification. Please clinically correlate. [facility] Trans[facility] Date/Time: Jan 26 2023 4:49P Dictated by : BAILEE SYKES MD This examination was interpreted and the report reviewed and electronically signed by: BAILEE SYKES MD on Jan 26 2023 4:51PM [facility] DIVISION OF RADIOLOGY * * *Final [...] the lateral epicondyle. DIVISION OF RADIOLOGY Provider, [facility] Leora [place] - 01/26/2023 * * [...] Mild soft tissue calcification. Please clinically correlate. Telehealth Coordinator: [facility] Transcribe Date/Time: Jan 26 2023 4:49P Dictated by : BAILEE SYKES MD This examination was interpreted and the report reviewed and electronically signed by: BAILEE SYKES MD on Jan 26 2023 4:51PM [facility] Basophil percentageOrdered B y: Dr. Michel on 12-08-2022 Bilirubin [Mass/Vol] 0.40 mg/dL 0.20-1.00 [facility] Comment on above: For patients on eltr ombopag therapy, use of Dimension [place] TBIL is not recommended. Cholesterol [Mass/Vol] 161 mg/dL <200 [facility] Comment on above: <200 mg/dL Desirable 200-240 mg/dL Borderline >240 mg/dL High Risk Protein [Mass/Vol] 7.7 g/dL 6.4-8.2 [facility] Triglyceride [Mass/Vol] 182 mg/dL <199 [facility] Comment on above: The drugs N-Acetylcy steine and Metamizole may falsely depress this assay.Serum Triglycerides Reference Interval Normal <150 mg/dL Borderline high 150 - 199 mg/dL High 200 - 499 mg/dL Very High > or = 500 mg/dL Direct bilirubinOrdered By: Dr. Michel on 12-08-2022 Bilirubin.direct [Mass/Vol] 0.11 mg/dL 0.00-0.30 [facility] Laboratory - Chemistry and C hemistry - challengeOrdered By: Dr. Michel on 12-08-2022 ALP [Catalytic activity/Vol] 114 U/L 45-117 [facility] ALT [Catalytic activity/Vol] 46 U/L 13-56 [facility] Globulin (S) [Mass/Vol] 4.1 g/dL 2.2-4.2 [facility] Serum or plasma albumin cass urement (mass/volume)Ordered By: Dr. Michel on 12-08-2022 Albumin [Mass/Vol] 3.6 g/dL 3.2-5.0 [facility] Serum or plasma cholesterol in HDL measurement (mass/volume)Ordered By: Dr. Michel on 12-08-2022 Cholesterol in HDL [Mass/Vol] 37 mg/dL >40 [facility] Comment on above: The drugs N-Acetylcy steine and Metamizole may falsely depress this assay. Reference Range HDL <40 mg/dL Low HDL Cholesterol HDL >or= 60 mg/dL High HDL Cholesterol Serum or plasma cholesterol in VLDL measurement (mass/volume)Ordered By: Dr. Michel on 12-08-2022 Cholesterol in VLDL [Mass/Vol] 36 mg/dL 5-40 [facility] Serum or plasma low density lipoprotein (LDL) cholesterol measurement (mass/volume)Ordered By: Dr. Michel on 12-08-2022 Cholesterol in LDL [Mass/Vol] 88 mg/dL 0-130 [facility] Thin prep Papanicolaou smear with manual screeningOrdered By: Dr. Michel on 12-08-2022 Thin prep Papanicolaou smear with manual screening 23 U/L 15-37 [facility] Basophil percentageOrdered B y: Cristin Pettit on 11-30-2022 Chloride [Moles/Vol] 105 mmol/L 98-107 [facility] Glucose [Mass/Vol] 171 mg/dL 74-106 [facility] Comment on above: Fasting Glucose resu lt greater than or equal to 126 mg/dL suggests DIABETES MELLITUS per A.D.A. criteria. Potassium [Moles/Vol] 3.8 mmol/L 3.5-5.1 [facility] Sodium [Moles/Vol] 140 mmol/L 136-145 [facility] WBC (Bld) [#/Vol] 6.3 10*3/uL 4.4-11.0 [facility] Blood erythrocytes count (nu mber/volume)Ordered By: Cristin Pettit on 11-30-2022 RBC (Bld) [#/Vol] 4.88 10*6/uL 4.2-5.4 [facility] Blood hemoglobin measurement (mass/volume)Ordered By: Cristin Pettit on 11-30-2022 Hemoglobin (Bld) [Mass/Vol] 15.0 g/dL 12.0-15.0 [facility] Blood platelet mean volumeOr dered By: Cristin Pettit on 11-30-2022 Platelet mean volume (Bld) [Entitic vol] 9.6 fL 6.2-12.0 [facility] Determination of erythrocyte mean corpuscular volume (MCV)Ordered By: Cristin Pettit on 11-30-2022 MCV (RBC) [Entitic vol] 91.6 fL 81-99 [facility] Hematocrit Auto (Bld) [Volum e fraction]Ordered By: Cristin Pettit on 11-30-2022 Hematocrit (Bld) [Volume fraction] 44.7 % 37-47 [facility] - Chemistry and C hemistry - challengeOrdered By: Cristin Pettit on 11-30-2022 CO2 [Moles/Vol] 29.0 mmol/L 21.0-32.0 [facility] Magnesium [Mass/Vol] 2.1 mg/dL 1.6-2.6 [facility] Urea nitrogen/Creatinine [Mass ratio] 13.7 mg/mg 10-20 [facility] - Hematology and Cell countsOrdered By: Cristin Pettit on 11-30-2022 Erythrocyte distribution width (RBC) [Entitic vol] 45.7 fL 35.1-43.9 [facility] Erythrocyte distribution width (RBC) [Ratio] 13.5 % 11.6-14.6 [facility] MCH (RBC) [Entitic mass] 30.7 pg 27.0-32.0 [facility] MCHC Auto (RBC) [Mass/Vol]Or dered By: Cristin Pettit on 11-30-2022 MCHC (RBC) [Mass/Vol] 33.6 g/dL 32-36 [facility] No Panel InformationOrdered By: Cristin Pettit on 11-30-2022 Estimated GFR (MDRD) Amer 107 mL/min >60 [facility] Comment on above: GFR Calc Estimated GFR (MDRD) Non-Af Amer 89 mL/min >60 [facility] Comment on above: Non- GFR Calc Thyroid Stimulating Hormone (TSH) 2.02 uIU/mL 0.358-3.74 [facility] Platelets bldOrdered By: Prieto Pettit on 11-30-2022 Platelets (Bld) [#/Vol] 215 10*3/uL 150-450 [facility] Serum or plasma calcium cass urement (mass/volume)Ordered By: Cristin Pettit on 11-30-2022 Calcium [Mass/Vol] 8.9 mg/dL 8.5-10.1 [facility] Serum or plasma creatinine m easurement (mass/volume)Ordered By: Cristin Pettit on 11-30-2022 Creatinine [Mass/Vol] 0.73 mg/dL 0.55-1.02 [facility] Comment on above: The validity of the calculated GFR & GFRAA in patients over 70 years has not been determined. Clinical correlation is essential. Serum or plasma urea nitroge n measurement (mass/volume)Ordered By: Cristin Pettit on 11-30-2022 Urea nitrogen [Mass/Vol] 10 mg/dL 7-18 [facility] Thin prep Papanicolaou smear with manual screeningOrdered By: Cristin Pettit on 11-30-2022 Thin prep Papanicolaou smear with manual screening 6 5-15 [facility] BRITTANY SCREENINGon 07-30-2022 [facility] Basophil percentageon 2021 WBC (Bld) [#/Vol] 7.1 10*3/uL 4.4-11.0 [facility] Work Phone: Blood erythrocytes count (nu mber/volume)on 05-29-2022 RBC (Bld) [#/Vol] 4.36 10*6/uL 4.2-5.4 [facility] Work Phone: Blood hemoglobin measurement (mass/volume)on 05-29-2022 Hemoglobin (Bld) [Mass/Vol] 10.9 g/dL 12.0-15.0 [facility] Work Phone: Blood platelet mean volumeon 05-29-2022 Platelet mean volume (Bld) [Entitic vol] 10.1 fL 6.2-12.0 [facility] Work Phone: Determination of erythrocyte mean corpuscular volume (MCV)on 05-29-2022 MCV (RBC) [Entitic vol] 81.0 fL 81-99 [facility] Work Phone: Glucose Glucometer (BldC) [M ass/Vol]on 05-29-2022 Glucose [Mass/Vol] 167 mg/dL 74-106 [facility] Work Phone: Comment on above: MANAGEMENT OF PATIEN T CARE PER NURSING PROTOCOL Hematocrit Auto (Bld) [Volum e fraction]on 05-29-2022 Hematocrit (Bld) [Volume fraction] 35.3 % 37-47 [facility] Work Phone: Laboratory - Hematology and Cell countson 05-29-2022 Erythrocyte distribution width (RBC) [Entitic vol] 52.6 fL 35.1-43.9 [facility] Work Phone: Erythrocyte distribution width (RBC) [Ratio] 17.8 % 11.6-14.6 [facility] Work Phone: MCH (RBC) [Entitic mass] 25.0 pg 27.0-32.0 [facility] Work Phone: MCHC Auto (RBC) [Mass/Vol]on 05-29-2022 MCHC (RBC) [Mass/Vol] 30.9 g/dL 32-36 [facility] Work Phone: Platelets bldon 05-29-2022 Platelets (Bld) [#/Vol] 176 10*3/uL 150-450 [facility] Work Phone: Basophil percentageon 2021 Chloride [Moles/Vol] 107 mmol/L 98-107 [facility] Work Phone: Glucose [Mass/Vol] 97 mg/dL 74-106 [facility] Work Phone: Potassium [Moles/Vol] 4.1 mmol/L 3.5-5.1 [facility] Work Phone: Sodium [Moles/Vol] 139 mmol/L 136-145 [facility] Work Phone: INR in Blood by Coagulation assayon 05-25-2022 INR Coag (Bld) [Relative time] 1.1 {INR} [facility] Work Phone: Laboratory - Chemistry and C hemistry - challengeon 05-25-2022 CO2 [Moles/Vol] 25.0 mmol/L 21.0-32.0 [facility] Work Phone: Urea nitrogen/Creatinine [Mass ratio] 14.7 mg/mg 10-20 [facility] Work Phone: Magnesium [Mass/Vol] 2.1 mg/dL 1.6-2.6 [facility] Work Phone: Laboratory - Coagulationon 0 05-25-2022 aPTT Coag (Bld) [Time] 27.4 s 24.1-36.2 [facility] Work Phone: PT Coag (PPP) [Time] 13.8 s 11.7-14.9 [facility] Work Phone: No Panel Informationon 05-25 Estimated GFR (MDRD) Amer 117 mL/min >60 [facility] Work Phone: Comment on above: GFR Calc Estimated GFR (MDRD) Non-Af Amer 97 mL/min >60 [facility] Work Phone: Comment on above: Non- GFR Calc Serum or plasma calcium cass urement (mass/volume)on 05-25-2022 Calcium [Mass/Vol] 8.7 mg/dL 8.5-10.1 [facility] Work Phone: Serum or plasma creatinine m easurement (mass/volume)on 05-25-2022 Creatinine [Mass/Vol] 0.68 mg/dL 0.55-1.02 [facility] Work Phone: Comment on above: The validity of the calculated GFR & GFRAA in patients over 70 years has not been determined. Clinical correlation is essential. Serum or plasma urea nitroge n measurement (mass/volume)on 05-25-2022 Urea nitrogen [Mass/Vol] 10 mg/dL 7-18 [facility] Work Phone: Thin prep Papanicolaou smear with manual screeningon 05-25-2022 Thin prep Papanicolaou smear with manual screening 7 5-15 [facility] Work Phone: XR CHEST 2V FRONTAL/LATon [facility] XR Chest PA and Lateralon IMPRESSION: No acute radiographic abnormality. Telehealth Coordinator: [facility] Transcribe Date/Time: Apr 23 2022 11:16A [...] Unremarkable. ZZZ_DO_NOT_ USE_DIVISIO N OF RADIOLOGY Provider, [facility] Leora [facility] - 04/23/2022 * * *Final Report* [...] Unremarkable. IMPRESSION IMPRESSION: No acute radiographic abnormality. Telehealth Coordinator: [facility] Transcribe Date/Time: Apr 23 2022 11:16A Dictated by : MARCELLA TORRES MD This examination was interpreted and the report reviewed and electronically signed by: MARCELLA TORRES MD on Apr 23 2022 11:18AM EST [facility] Radiology Study observation (narrative) [facility] XR Chest PA and LateralOrder ed By: Ccf Provider on 04-23-2022 [facility] Vital Signs Date Time Vital Sign Value Performing Clinician Facility 07-12-2025 09:28-0400 Body height 170.[address] David Fink MD Work Phone: [facility] 07-12-2025 09:28-0400 Body mass index (BMI) [Ratio] 33.5 kg/m2 Dr. David Fink MD Work Phone: [facility] 07-12-2025 09:28-0400 Body temperature 98.4 [degF] Dr. David Fink MD Work Phone: [facility] 07-12-2025 09:28-0400 Body weight 97.[address] David Fink MD Work Phone: [facility] 07-12-2025 09:28-0400 Diastolic blood pressure 75 mm[Hg] Dr. David Fink MD Work Phone: [facility] 07-12-2025 09:28-0400 Heart rate 76 /min Dr. David Fink MD Work Phone: 0(013)499-228934 [place] [address] 07-12-2025 09:28-0400 Respiratory rate 18 /min Dr. David Fink MD Work Phone: 0(061)925-029753 [place] [address] 07-12-2025 09:28-0400 SaO2% (BldA) [Mass fraction] 100 % Dr. David Fink MD Work Phone: 1(794)542-079453 [place] [address] 07-12-2025 09:28-0400 Systolic blood pressure 112 mm[Hg] Dr. David Fink MD Work Phone: 8(450)497-805553 [place] [address] 06-28-2025 09:44-0400 Body height 170.[address] David Fink MD Work Phone: 3(538)514-199753 [place] [address] 06-28-2025 09:44-0400 Body mass index (BMI) [Ratio] 32.5 kg/m2 Dr. David Fink MD Work Phone: 0(190)374-384453 [place] [address] 06-28-2025 09:44-0400 Body temperature 96.9 [degF] Dr. David Fink MD Work Phone: 7(810)110-835153 [place] [address] 06-28-2025 09:44-0400 Body weight 94.[address] David Fink MD Work Phone: 6(272)576-736253 [place] [address] 06-28-2025 09:44-0400 Diastolic blood pressure 66 mm[Hg] Dr. David Fink MD Work Phone: 6(759)544-130553 [place] [address] 06-28-2025 09:44-0400 Heart rate 76 /min Dr. David Fink MD Work Phone: 4(168)476-928153 [place] [address] 06-28-2025 09:44-0400 Respiratory rate 18 /min Dr. David Fink MD Work Phone: 5(721)928-448353 [place] [address] 06-28-2025 09:44-0400 SaO2% (BldA) [Mass fraction] 99 % Dr. David Fink MD Work Phone: 1(747)585-461853 [place] [address] 06-28-2025 09:44-0400 Systolic blood pressure 108 mm[Hg] Dr. David Fink MD Work Phone: 1(664)492-344153 [place] [address] 06-14-2025 10:18-0400 Body height 170.[address] David Fink MD Work Phone: 4(729)034-458053 [place] [address] 06-14-2025 10:18-0400 Body mass index (BMI) [Ratio] 33.4 kg/m2 Dr. David Fink MD Work Phone: 2(971)595-114753 [place] [address] 06-14-2025 10:18-0400 Body temperature 98.2 [degF] Dr. David Fink MD Work Phone: 0(993)280-592953 [place] [address] 06-14-2025 10:18-0400 Body weight 96.[address] David Fink MD Work Phone: 9(453)262-671353 [place] [address] 06-14-2025 10:18-0400 Diastolic blood pressure 64 mm[Hg] Dr. David Fink MD Work Phone: 1(888)679-517553 [place] [address] 06-14-2025 10:18-0400 Heart rate 80 /min Dr. David Fink MD Work Phone: 0(851)735-644453 [place] [address] 06-14-2025 10:18-0400 Respiratory rate 18 /min Dr. David Fink MD Work Phone: 3(539)420-463953 [place] [address] 06-14-2025 10:18-0400 SaO2% (BldA) [Mass fraction] 100 % Dr. David Fink MD Work Phone: 9(300)095-720353 [place] [address] 06-14-2025 10:18-0400 Systolic blood pressure 102 mm[Hg] Dr. David Fink MD Work Phone: 4(188)743-409853 [place] [address] 06-07-2025 09:27-0400 Body height 170.[address] David Fink MD Work Phone: 7(541)801-178053 [place] [address] 06-07-2025 09:27-0400 Body mass index (BMI) [Ratio] 32.9 kg/m2 Dr. David Fink MD Work Phone: 3(364)077-213553 [place] [address] 06-07-2025 09:27-0400 Body temperature 98.2 [degF] Dr. David Fink MD Work Phone: 8(365)889-008734 [place] [address] 06-07-2025 09:27-0400 Body weight 95.[address] David Fink MD Work Phone: 4(244)519-998553 [place] [address] 06-07-2025 09:27-0400 Diastolic blood pressure 69 mm[Hg] Dr. David Fink MD Work Phone: 5(878)972-342453 [place] [address] 06-07-2025 09:27-0400 Heart rate 77 /min Dr. David Fink MD Work Phone: 8(563)201-679353 [place] [address] 06-07-2025 09:27-0400 Respiratory rate 16 /min Dr. David Fink MD Work Phone: 3(393)544-594153 [place] [address] 06-07-2025 09:27-0400 SaO2% (BldA) [Mass fraction] 99 % Dr. David Fink MD Work Phone: 1(338)376-139253 [place] [address] 06-07-2025 09:27-0400 Systolic blood pressure 107 mm[Hg] Dr. David Fink MD Work Phone: 0(201)712-700553 [place] [address] 05-31-2025 10:16-0400 Body height 170.[address] David Fink MD Work Phone: 0(847)823-991553 [place] [address] 05-31-2025 10:16-0400 Body mass index (BMI) [Ratio] 32.4 kg/m2 Dr. David Fink MD Work Phone: 9(770)120-116453 [place] [address] 05-31-2025 10:16-0400 Body temperature 98.1 [degF] Dr. David Fink MD Work Phone: 7(636)709-800353 [place] [address] 05-31-2025 10:16-0400 Body weight 93.[address] David Fink MD Work Phone: 2(558)358-650653 [place] [address] 05-31-2025 10:16-0400 Diastolic blood pressure 71 mm[Hg] Dr. David Fink MD Work Phone: 3(855)872-451553 [place] [address] 05-31-2025 10:16-0400 Heart rate 82 /min Dr. David Fink MD Work Phone: 7(898)077-963934 [place] [address] 05-31-2025 10:16-0400 Respiratory rate 16 /min Dr. David Fink MD Work Phone: 4(628)409-606253 [place] [address] 05-31-2025 10:16-0400 SaO2% (BldA) [Mass fraction] 99 % Dr. David Fink MD Work Phone: 6(778)379-799853 [place] [address] 05-31-2025 10:16-0400 Systolic blood pressure 107 mm[Hg] Dr. David Fink MD Work Phone: 4(636)120-030153 [place] [address] 05-17-2025 09:52-0400 Body height 170.[address] David Fink MD Work Phone: 7(680)742-694553 [place] [address] 05-17-2025 09:46-0400 Body mass index (BMI) [Ratio] 33.2 kg/m2 Dr. David Fink MD Work Phone: 1(571)554-351053 [place] [address] 05-17-2025 09:46-0400 Body temperature 96.9 [degF] Dr. David Fink MD Work Phone: 7(129)488-572153 [place] [address] 05-17-2025 09:46-0400 Body weight 96.[address] David Fink MD Work Phone: 5(842)975-998253 [place] [address] 05-17-2025 09:46-0400 Diastolic blood pressure 68 mm[Hg] Dr. David Fink MD Work Phone: 8(165)513-611853 [place] [address] 05-17-2025 09:46-0400 Heart rate 80 /min Dr. David Fink MD Work Phone: 6(415)019-899453 [place] [address] 05-17-2025 09:46-0400 Respiratory rate 18 /min Dr. David Fink MD Work Phone: 1(477)543-468953 [place] [address] 05-17-2025 09:46-0400 SaO2% (BldA) [Mass fraction] 95 % Dr. David Fink MD Work Phone: 8(711)930-323753 [place] [address] 05-17-2025 09:46-0400 Systolic blood pressure 102 mm[Hg] Dr. David Fink MD Work Phone: 1(805)686-150253 [place] [address] 05-10-2025 10:12-0400 Body height 170.[address] David Fink MD Work Phone: 6(291)547-329253 [place] [address] 05-10-2025 10:12-0400 Body mass index (BMI) [Ratio] 33.5 kg/m2 Dr. David Fink MD Work Phone: 6(780)577-054253 [place] [address] 05-10-2025 10:12-0400 Body temperature 98.3 [degF] Dr. David Fink MD Work Phone: 5(156)812-732253 [place] [address] 05-10-2025 10:12-0400 Body weight 97.[address] David Fink MD Work Phone: 2(879)031-449753 [place] [address] 05-10-2025 10:12-0400 Diastolic blood pressure 72 mm[Hg] Dr. David Fink MD Work Phone: 2(983)358-593753 [place] [address] 05-10-2025 10:12-0400 Heart rate 76 /min Dr. David Fink MD Work Phone: 3(136)759-187953 [place] [address] 05-10-2025 10:12-0400 Respiratory rate 18 /min Dr. David Fink MD Work Phone: 7(709)924-280153 [place] [address] 05-10-2025 10:12-0400 SaO2% (BldA) [Mass fraction] 97 % Dr. David Fink MD Work Phone: 9(765)452-121953 [place] [address] 05-10-2025 10:12-0400 Systolic blood pressure 112 mm[Hg] Dr. David Fink MD Work Phone: 6(966)366-650653 [place] [address] 05-04-2025 22:14-0400 Body temperature 99.2 [degF] Dr. David Fink MD Work Phone: 4(390)678-929553 [place] [address] 05-04-2025 22:14-0400 Diastolic blood pressure 71 mm[Hg] Dr. David Fink MD Work Phone: 9(110)167-880953 [place] [address] 05-04-2025 22:14-0400 Heart rate 91 /min Dr. David Fink MD Work Phone: 1(068)420-326453 [place] [address] 05-04-2025 22:14-0400 Respiratory rate 17 /min Dr. David Fink MD Work Phone: 1(134)995-509053 [place] [address] 05-04-2025 22:14-0400 SaO2% (BldA) [Mass fraction] 96 % Dr. David Fink MD Work Phone: 1(652)614-634953 [place] [address] 05-04-2025 22:14-0400 Systolic blood pressure 104 mm[Hg] Dr. David Fikn MD Work Phone: 0(287)556-892553 [place] [address] 05-04-2025 17:59-0400 Body height 170.[address] David Fink MD Work Phone: 4(000)689-874453 [place] [address] 05-04-2025 17:59-0400 Body mass index (BMI) [Ratio] 33.3 kg/m2 Dr. David Fink MD Work Phone: 6(821)239-482853 [place] [address] 05-04-2025 17:59-0400 Body weight 96.[address] David Fink MD Work Phone: 2(750)314-010453 [place] [address] 05-03-2025 11:01-0400 Body height 170.[address] David Fink MD Work Phone: 1(982)070-008953 [place] [address] 05-03-2025 11:01-0400 Body mass index (BMI) [Ratio] 33.5 kg/m2 Dr. David Fink MD Work Phone: 2(364)035-495253 [place] [address] 05-03-2025 11:01-0400 Body temperature 98.7 [degF] Dr. David Fink MD Work Phone: 1(117)463-171153 [place] [address] 05-03-2025 11:01-0400 Body weight 97.[address] David Fink MD Work Phone: 2(581)634-613453 [place] [address] 05-03-2025 11:01-0400 Diastolic blood pressure 71 mm[Hg] Dr. David Fink MD Work Phone: 2(465)621-049753 [place] [address] 05-03-2025 11:01-0400 Heart rate 85 /min Dr. David Fink MD Work Phone: 6(509)444-191453 [place] [address] 05-03-2025 11:01-0400 Respiratory rate 18 /min Dr. David Fink MD Work Phone: 8(360)281-305753 [place] [address] 05-03-2025 11:01-0400 SaO2% (BldA) [Mass fraction] 99 % Dr. David Fink MD Work Phone: 0(889)063-138053 [place] [address] 05-03-2025 11:01-0400 Systolic blood pressure 107 mm[Hg] Dr. David Fink MD Work Phone: 5(168)129-493053 [place] [address] 04-28-2025 23:42-0400 Body temperature 99.7 [degF] Dr. David Fink MD Work Phone: 2(577)658-563153 [place] [address] 04-28-2025 23:42-0400 Diastolic blood pressure 57 mm[Hg] Dr. David Fink MD Work Phone: 2(708)480-879153 [place] [address] 04-28-2025 23:42-0400 Heart rate 88 /min Dr. David Fink MD Work Phone: 0(441)757-473153 [place] [address] 04-28-2025 23:42-0400 Respiratory rate 15 /min Dr. David Fink MD Work Phone: 4(639)260-586153 [place] [address] 04-28-2025 23:42-0400 SaO2% (BldA) [Mass fraction] 99 % Dr. David Fink MD Work Phone: 2(091)019-165453 [place] [address] 04-28-2025 23:42-0400 Systolic blood pressure 115 mm[Hg] Dr. David Fink MD Work Phone: 5(359)299-240253 [place] [address] 04-28-2025 19:29-0400 Body height 170.[address] David Fink MD Work Phone: 0(301)995-502053 [place] [address] 04-28-2025 19:29-0400 Body mass index (BMI) [Ratio] 34.4 kg/m2 Dr. David Fink MD Work Phone: 8(921)532-643953 [place] [address] 04-28-2025 19:29-0400 Body weight 99.[address] David Fink MD Work Phone: 4(055)804-771953 [place] [address] 04-26-2025 09:19-0400 Body height 170.[address] David Fink MD Work Phone: 3(825)892-464153 [place] [address] 04-26-2025 09:19-0400 Body mass index (BMI) [Ratio] 34 kg/m2 Dr. David Fink MD Work Phone: 3(727)731-439953 [place] [address] 04-26-2025 09:19-0400 Body temperature 97.4 [degF] Dr. David Fink MD Work Phone: 6(414)891-634753 [place] [address] 04-26-2025 09:19-0400 Body weight 98.[address] David Fink MD Work Phone: 4(167)824-871953 [place] [address] 04-26-2025 09:19-0400 Diastolic blood pressure 74 mm[Hg] Dr. David Fink MD Work Phone: 4(373)786-140153 [place] [address] 04-26-2025 09:19-0400 Heart rate 64 /min Dr. David Fink MD Work Phone: 3(140)466-982353 [place] [address] 04-26-2025 09:19-0400 Respiratory rate 16 /min Dr. David Fink MD Work Phone: 4(124)009-077253 [place] [address] 04-26-2025 09:19-0400 SaO2% (BldA) [Mass fraction] 95 % Dr. David Fink MD Work Phone: 3(477)676-938653 [place] [address] 04-26-2025 09:19-0400 Systolic blood pressure 116 mm[Hg] Dr. David Fink MD Work Phone: 3(912)960-454653 [place] [address] 04-19-2025 09:06-0400 Body height 170.[address] David Fink MD Work Phone: 8(839)536-902353 [place] [address] 04-19-2025 09:06-0400 Body mass index (BMI) [Ratio] 34.9 kg/m2 Dr. David Fink MD Work Phone: 6(188)008-353453 [place] [address] 04-19-2025 09:06-0400 Body temperature 98.5 [degF] Dr. David Fink MD Work Phone: 8(731)985-592553 [place] [address] 04-19-2025 09:06-0400 Body weight 101.[address] David Fink MD Work Phone: 5(733)321-063353 [place] [address] 04-19-2025 09:06-0400 Diastolic blood pressure 74 mm[Hg] Dr. David Fink MD Work Phone: 0(278)569-054153 [place] [address] 04-19-2025 09:06-0400 Heart rate 80 /min Dr. David Fink MD Work Phone: 2(082)691-185953 [place] [address] 04-19-2025 09:06-0400 Respiratory rate 16 /min Dr. David Fink MD Work Phone: 4(007)468-541553 [place] [address] 04-19-2025 09:06-0400 SaO2% (BldA) [Mass fraction] 94 % Dr. David Fink MD Work Phone: 2(299)934-939553 [place] [address] 04-19-2025 09:06-0400 Systolic blood pressure 131 mm[Hg] Dr. David Fink MD Work Phone: 9(882)140-282753 [place] [address] 04-18-2025 10:46-0400 Body height 170.[address] David Fink MD Work Phone: 2(443)120-519853 [place] [address] 04-18-2025 10:46-0400 Body mass index (BMI) [Ratio] 34.9 kg/m2 Dr. David Fink MD Work Phone: 7(043)303-989753 [place] [address] 04-18-2025 10:46-0400 Body weight 101.[address] David Fink MD Work Phone: 7(214)531-790353 [place] [address] 04-18-2025 10:46-0400 Diastolic blood pressure 78 mm[Hg] Dr. David Fink MD Work Phone: 1(749)723-676353 [place] [address] 04-18-2025 10:46-0400 Heart rate 80 /min Dr. David Fink MD Work Phone: 6(447)410-504553 [place] [address] 04-18-2025 10:46-0400 Respiratory rate 16 /min Dr. David Fikn MD Work Phone: 9(178)694-003553 [place] [address] 04-18-2025 10:46-0400 Systolic blood pressure 118 mm[Hg] Dr. David Fink MD Work Phone: 0(329)887-255553 [place] [address] 04-04-2025 14:17-0400 Body height 170.[address] David Fink MD Work Phone: 4(768)367-320153 [place] [address] 04-04-2025 14:13-0400 Body mass index (BMI) [Ratio] 35.2 kg/m2 Dr. David Fink MD Work Phone: 6(578)739-136053 [place] [address] 04-04-2025 14:13-0400 Body temperature 98.2 [degF] Dr. David Fink MD Work Phone: 9(662)515-425553 [place] [address] 04-04-2025 14:13-0400 Body weight 102.[address] David Fink MD Work Phone: 3(201)205-847253 [place] [address] 04-04-2025 14:13-0400 Diastolic blood pressure 80 mm[Hg] Dr. David Fink MD Work Phone: 0(075)160-053153 [place] [address] 04-04-2025 14:13-0400 Heart rate 83 /min Dr. David Fink MD Work Phone: 3(479)824-315653 [place] [address] 04-04-2025 14:13-0400 Respiratory rate 16 /min Dr. David Fink MD Work Phone: 0(148)664-125153 [place] [address] 04-04-2025 14:13-0400 SaO2% (BldA) [Mass fraction] 98 % Dr. David Fink MD Work Phone: 4(717)309-172253 [place] [address] 04-04-2025 14:13-0400 Systolic blood pressure 125 mm[Hg] Dr. David Fink MD Work Phone: 9(283)234-663153 [place] [address] 04-02-2025 13:15-0400 Body temperature 97.9 [degF] Dr. David Fink MD Work Phone: 2(640)956-594853 [place] [address] 04-02-2025 13:15-0400 Diastolic blood pressure 62 mm[Hg] Dr. David Fink MD Work Phone: 4(924)361-656053 [place] [address] 04-02-2025 13:15-0400 Heart rate 60 /min Dr. David Fink MD Work Phone: 1(372)253-586053 [place] [address] 04-02-2025 13:15-0400 Respiratory rate 16 /min Dr. David Fink MD Work Phone: 9(403)809-309753 [place] [address] 04-02-2025 13:15-0400 SaO2% (BldA) [Mass fraction] 96 % Dr. David Fink MD Work Phone: 9(350)582-818253 [place] [address] 04-02-2025 13:15-0400 Systolic blood pressure 116 mm[Hg] Dr. David Fink MD Work Phone: 4(715)510-768153 [place] [address] 04-02-2025 12:45-0400 Inhaled oxygen flow rate 2 L/min Dr. David Fink MD Work Phone: 7(568)287-859453 [place] [address] 04-02-2025 10:06-0400 Body height 170.[address] David Fink MD Work Phone: 5(498)963-314953 [place] [address] 04-02-2025 10:06-0400 Body mass index (BMI) [Ratio] 35.2 kg/m2 Dr. David Fink MD Work Phone: 1(071)034-905353 [place] [address] 04-02-2025 10:06-0400 Body weight [address] David Fink MD Work Phone: 9(595)379-220253 [place] [address] 03-29-2025 14:36-0400 Body weight 102.[address] David Fink MD Work Phone: 3(853)552-700053 [place] [address] 03-28-2025 15:36-0400 Body height 170.[address] David Fink MD Work Phone: 8(355)202-006253 [place] [address] 03-28-2025 15:36-0400 Body mass index (BMI) [Ratio] 35.3 kg/m2 Dr. David Fink MD Work Phone: 8(394)439-218953 [place] [address] 03-28-2025 15:36-0400 Body temperature 96.7 [degF] Dr. David Fink MD Work Phone: 0(611)438-004553 [place] [address] 03-28-2025 15:36-0400 Body weight 102.[address] David Fink MD Work Phone: 2(472)568-294653 [place] [address] 03-28-2025 15:36-0400 Diastolic blood pressure 77 mm[Hg] Dr. David Fink MD Work Phone: 2(781)637-370353 [place] [address] 03-28-2025 15:36-0400 Heart rate 78 /min Dr. David Fink MD Work Phone: 8(320)970-343253 [place] [address] 03-28-2025 15:36-0400 Respiratory rate 18 /min Dr. David Fink MD Work Phone: 8(264)061-129653 [place] [address] 03-28-2025 15:36-0400 SaO2% (BldA) [Mass fraction] 95 % Dr. David Fnik MD Work Phone: 5(909)608-623853 [place] [address] 03-28-2025 15:36-0400 Systolic blood pressure 111 mm[Hg] Dr. Dvaid Fink MD Work Phone: 1(243)096-121353 [place] [address] 03-26-2025 13:32-0400 Body weight 102.[address] David Fink MD Work Phone: 5(578)473-786753 [place] [address] 03-26-2025 13:32-0400 Diastolic blood pressure 80 mm[Hg] Dr. David Fink MD Work Phone: 4(318)165-544753 [place] [address] 03-26-2025 13:32-0400 Heart rate 96 /min Dr. David Fink MD Work Phone: 7(708)508-179753 [place] [address] 03-26-2025 13:32-0400 Respiratory rate 17 /min Dr. David Fink MD Work Phone: 1(569)202-912153 [place] [address] 03-26-2025 13:32-0400 SaO2% (BldA) [Mass fraction] 95 % Dr. David Fink MD Work Phone: 4(928)690-723953 [place] [address] 03-26-2025 13:32-0400 Systolic blood pressure 121 mm[Hg] Dr. David Fink MD Work Phone: 4(945)927-622953 [place] [address] 03-21-2025 13:28-0400 Body temperature 97 [degF] Christopher Cunningham MD Work Phone: [facility] 03-21-2025 13:28-0400 Body weight 102.56 kg Christopher Cunningham MD Work Phone: [facility] 03-21-2025 13:28-0400 Diastolic blood pressure 57 mm[Hg] Christopher Cunningham MD Work Phone: [facility] 03-21-2025 13:28-0400 Heart rate 64 /min Christopher Cunningham MD Work Phone: [facility] 03-21-2025 13:28-0400 Respiratory rate 18 /min Christopher Cunningham MD Work Phone: [facility] 03-21-2025 13:28-0400 SaO2% (BldA) [Mass fraction] 99 % Christopher Cunningham MD Work Phone: [facility] 03-21-2025 13:28-0400 Systolic blood pressure 123 mm[Hg] Christopher Cunningham MD Work Phone: [facility] 02-26-2025 11:18-0400 Body mass index (BMI) [Ratio] 34.9 kg/m2 Dr. David Fink MD Work Phone: [facility] 02-26-2025 11:18-0400 Body temperature 98.5 [degF] Dr. David Fink MD Work Phone: [facility] 02-26-2025 11:18-0400 Body weight 101.[address] David Fink MD Work Phone: [facility] 02-26-2025 11:18-0400 Diastolic blood pressure 75 mm[Hg] Dr. David Fink MD Work Phone: [facility] 02-26-2025 11:18-0400 Heart rate 76 /min Dr. David Fink MD Work Phone: [facility] 02-26-2025 11:18-0400 Respiratory rate 18 /min Dr. David Fink MD Work Phone: [facility] 02-26-2025 11:18-0400 SaO2% (BldA) [Mass fraction] 96 % Dr. David Fink MD Work Phone: [facility] 02-26-2025 11:18-0400 Systolic blood pressure 116 mm[Hg] Dr. David Fink MD Work Phone: [facility] 02-14-2025 13:52-0400 Body height 170.2 cm Ashok Herbert [employer] - [employer]ICATION OFFICER Work Phone: [facility] 02-14-2025 13:52-0400 Body mass index (BMI) [Ratio] 34.64 kg/m2 Ashok Herbert [employer] - [employer]ICATION OFFICER Work Phone: [facility] 02-14-2025 13:52-0400 Body weight 100.34 kg Ashok Herbert [employer] - CLASS[employer]ICATION OFFICER Work Phone: [facility] 02-14-2025 13:52-0400 Diastolic blood pressure 78 mm[Hg] Ashok Herbert [employer] - CLASSIFICATION OFFICER Work Phone: [facility] 02-14-2025 13:52-0400 Heart rate 80 /min Ashok Herbert [employer] - CLASS[employer]ICATION OFFICER Work Phone: [facility] 02-14-2025 13:52-0400 Systolic blood pressure 122 mm[Hg] Ashok Herbert [employer] - CLASSIFICATION OFFICER Work Phone: [facility] 01-27-2025 09:10-0400 Body temperature 96.49 [degF] Darvin Grady MD Work Phone: [facility] 01-27-2025 09:10-0400 Diastolic blood pressure 51 mm[Hg] Darvin Grady MD Work Phone: [facility] 01-27-2025 09:10-0400 Heart rate 59 /min Darvin Grady MD Work Phone: [facility] 01-27-2025 09:10-0400 Respiratory rate 18 /min Darvin Grady MD Work Phone: [facility] 01-27-2025 09:10-0400 SaO2% (BldA) [Mass fraction] 94 % Darvin Grady MD Work Phone: [facility] 01-27-2025 09:10-0400 Systolic blood pressure 97 mm[Hg] Darvin Grady MD Work Phone: [facility] 01-26-2025 06:40-0400 Body height 170.2 cm Darvin Grady MD Work Phone: [employer] 01-26-2025 06:40-0400 Body mass index (BMI) [Ratio] 35.21 kg/m2 Darvin Grady MD Work Phone: [employer] [facility] 01-26-2025 06:40-0400 Body weight 102 kg Darvin Grady MD Work Phone: [facility] 01-17-2025 10:23-0500 Body height 170.2 cm Darvin Grady MD Work Phone: [facility] 01-17-2025 10:23-0500 Body mass index (BMI) [Ratio] 36.98 kg/m2 Darvin Grady MD Work Phone: [employer] [facility] 01-17-2025 10:23-0500 Body weight 107.09 kg Darvin Grady MD Work Phone: [employer] 01-17-2025 10:23-0500 Diastolic blood pressure 68 mm[Hg] Darvin Grady MD Work Phone: [facility] 01-17-2025 10:23-0500 Heart rate 69 /min Darvin Grady MD Work Phone: [employer] [facility] 01-17-2025 10:23-0500 SaO2% (BldA) [Mass fraction] 95 % Darvin Grady MD Work Phone: [employer] [facility] 01-17-2025 10:23-0500 Systolic blood pressure 122 mm[Hg] Darvin Grady MD Work Phone: [facility] 01-10-2025 13:05-0500 Body height 170.[address] David Fink MD Work Phone: 2(656)859-517553 [place] [address] 01-10-2025 13:05-0500 Body mass index (BMI) [Ratio] 37.3 kg/m2 Dr. David Fink MD Work Phone: 0(560)259-645953 [place] [address] 01-10-2025 13:05-0500 Body temperature 96.6 [degF] Dr. David Fink MD Work Phone: 4(178)814-785253 [place] [address] 01-10-2025 13:05-0500 Body weight 108.[address] David Fink MD Work Phone: 3(229)035-300153 [place] [address] 01-10-2025 13:05-0500 Diastolic blood pressure 72 mm[Hg] Dr. David Fink MD Work Phone: 6(329)898-164153 [place] [address] 01-10-2025 13:05-0500 Heart rate 74 /min Dr. David Fink MD Work Phone: 0(546)810-075453 [place] [address] 01-10-2025 13:05-0500 Respiratory rate 18 /min Dr. David Fink MD Work Phone: 8(365)613-031953 [place] [address] 01-10-2025 13:05-0500 SaO2% (BldA) [Mass fraction] 93 % Dr. David Fink MD Work Phone: 0(070)779-844053 [place] [address] 01-10-2025 13:05-0500 Systolic blood pressure 110 mm[Hg] Dr. David Fink MD Work Phone: 9(356)902-591453 [place] [address] 01-08-2025 21:55-0500 Body temperature 98.3 [degF] Dr. David Fink MD Work Phone: 6(737)493-137453 [place] [address] 01-08-2025 21:55-0500 Diastolic blood pressure 89 mm[Hg] Dr. David Fink MD Work Phone: 0(434)390-076653 [place] [address] 01-08-2025 21:55-0500 Heart rate 78 /min Dr. David Fink MD Work Phone: 2(102)789-679253 [place] [address] 01-08-2025 21:55-0500 Respiratory rate 16 /min Dr. David Fink MD Work Phone: [facility] 01-08-2025 21:55-0500 SaO2% (BldA) [Mass fraction] 98 % Dr. David Fink MD Work Phone: [facility] 01-08-2025 21:55-0500 Systolic blood pressure 128 mm[Hg] Dr. David Fink MD Work Phone: [facility] 01-08-2025 17:57-0500 Body mass index (BMI) [Ratio] 36.7 kg/m2 Dr. David Fink MD Work Phone: [facility] 01-08-2025 17:57-0500 Body weight 106.[address] David Fink MD Work Phone: [facility] 12-24-2024 13:51-0500 Body mass index (BMI) [Ratio] 38.19 kg/m2 Isaías Ribeiro [employer]ICATION OFFICER Work Phone: [facility] 12-24-2024 13:51-0500 Body temperature 97.81 [degF] Isaías Ribeiro [employer] SAL[employer]ER.CLASSIFICATION OFFICER Work Phone: [facility] 12-24-2024 13:51-0500 Body weight 110.6 kg Isaías Ribeiro [employer] SAL[employer]ER.CLASSIFICATION OFFICER Work Phone: [facility] 12-24-2024 13:51-0500 Diastolic blood pressure 68 mm[Hg] Isaías Ribeiro [employer]E SALV[employer]ER.CLASSIFICATION OFFICER Work Phone: [facility] 12-24-2024 13:51-0500 Heart rate 80 /min Isaías Ribeiro [employer]E SALV[employer]ER.CLASSIFICATION OFFICER Work Phone: [facility] 12-24-2024 13:51-0500 Respiratory rate 18 /min Isaías Ribeiro W[employer]E SALV[employer]ER.CLASSIFICATION OFFICER Work Phone: [facility] 12-24-2024 13:51-0500 SaO2% (BldA) [Mass fraction] 96 % Isaías Ribeiro W[employer]E SALV[employer]ER.CLASSIFICATION OFFICER Work Phone: [facility] 12-24-2024 13:51-0500 Systolic blood pressure 126 mm[Hg] Isaías Quintin [employer]E SALV[employer]ER.CLASSIFICATION OFFICER Work Phone: [facility] 08-02-2024 18:51-0400 Body mass index (BMI) [Ratio] 38.5 kg/m2 Isaíasmaría Springermassimo [employer]E SALV[employer]ER.CLASSIFICATION OFFICER Work Phone: [facility] 08-02-2024 18:51-0400 Body temperature 98.01 [degF] Isaías Ribeiro [employer]E SALV[employer]ER.CLASSIFICATION OFFICER Work Phone: [facility] 08-02-2024 18:51-0400 Body weight 111.5 kg Isaías Gloryelliottmassimo W[employer]E SALV[employer]ER.CLASSIFICATION OFFICER Work Phone: [facility] 08-02-2024 18:51-0400 Diastolic blood pressure 76 mm[Hg] Isaías Gloryelliottmassimo W[employer]E SALV[employer]ER.CLASSIFICATION OFFICER Work Phone: [facility] 08-02-2024 18:51-0400 Heart rate 93 /min Isaías Ribeiro WASTE SALV[employer]ER.CLASSIFICATION OFFICER Work Phone: [facility] 08-02-2024 18:51-0400 Respiratory rate 20 /min Isaías Gloryelliottmassimo WASTE SALV[employer]ER.CLASSIFICATION OFFICER Work Phone: [facility] 08-02-2024 18:51-0400 SaO2% (BldA) [Mass fraction] 94 % Isaías Ribeiro W[employer]E SALV[employer]ER.CLASSIFICATION OFFICER Work Phone: [facility] 08-02-2024 18:51-0400 Systolic blood pressure 119 mm[Hg] Isaías Holderelliottmassimo W[employer]E SALV[employer]ER.CLASSIFICATION OFFICER Work Phone: [facility] 04-18-2024 12:13-0400 Body mass index (BMI) [Ratio] 38.81 kg/m2 Juana Linton W[employer]E SALV[employer]ER.CLASSIFICATION OFFICER Work Phone: [facility] 04-18-2024 12:13-0400 Body temperature 98.49 [degF] Juana Linton W[employer]E SALV[employer]ER.CLASSIFICATION OFFICER Work Phone: [facility] 04-18-2024 12:13-0400 Body weight 112.4 kg Juana Linton W[employer]E SALVAGER.CLASSIFICATION OFFICER Work Phone: [facility] 04-18-2024 12:13-0400 Diastolic blood pressure 68 mm[Hg] Juana Linton WASTE SALVAGER.CLASSIFICATION OFFICER Work Phone: [facility] 04-18-2024 12:13-0400 Heart rate 98 /min Juana Linton W[employer]E SALV[employer]ER.CLASSIFICATION OFFICER Work Phone: [facility] 04-18-2024 12:13-0400 Respiratory rate 16 /min Juana Linton W[employer]E SALVAGER.CLASSIFICATION OFFICER Work Phone: [facility] 04-18-2024 12:13-0400 SaO2% (BldA) [Mass fraction] 95 % Juana Linton W[employer]E SALV[employer]ER.CLASSIFICATION OFFICER Work Phone: [facility] 04-18-2024 12:13-0400 Systolic blood pressure 118 mm[Hg] Juana Linton WASTE SALVAGER.CLASSIFICATION OFFICER Work Phone: [facility] 03-23-2024 10:40-0400 Body mass index (BMI) [Ratio] 39.47 kg/m2 Cinthya Praisler-Wood W[employer]E SALV[employer]ER.CLASSIFICATION OFFICER Work Phone: [facility] 03-23-2024 10:40-0400 Body temperature 97.59 [degF] Cinthya Praisler-Wood W[employer]E SALV[employer]ER.CLASSIFICATION OFFICER Work Phone: [facility] 03-23-2024 10:40-0400 Body weight 114.3 kg Cinthya Praisler-Wood W[employer]E SALVAGER.CLASSIFICATION OFFICER Work Phone: [facility] 03-23-2024 10:40-0400 Diastolic blood pressure 64 mm[Hg] Cinthya Praisler-Wood WASTE SALVAGER.CLASSIFICATION OFFICER Work Phone: [facility] 03-23-2024 10:40-0400 Heart rate 109 /min Cinthya Praisler-Wood WASTE SALVAGER.CLASSIFICATION OFFICER Work Phone: [facility] 03-23-2024 10:40-0400 Respiratory rate 16 /min Cinthya Praisler-Wood WASTE SALVAGER.CLASSIFICATION OFFICER Work Phone: [facility] 03-23-2024 10:40-0400 SaO2% (BldA) [Mass fraction] 98 % Cinthya Vaughan [employer]E SALV[employer]ER.CLASSIFICATION OFFICER Work Phone: [facility] 03-23-2024 10:40-0400 Systolic blood pressure 138 mm[Hg] Cinthya Vaughan W[employer]E SALV[employer]ER.CLASSIFICATION OFFICER Work Phone: [facility] 03-01-2023 14:29-0400 Body weight 108.41 kg David Fink MD Work Phone: [facility] 03-01-2023 14:29-0400 Diastolic blood pressure 72 mm[Hg] David Fink MD Work Phone: [facility] 03-01-2023 14:29-0400 Heart rate 58 /min David Fink MD Work Phone: [facility] 03-01-2023 14:29-0400 SaO2% (BldA) [Mass fraction] 95 % David Fink MD Work Phone: [facility] 03-01-2023 14:29-0400 Systolic blood pressure 112 mm[Hg] David Fink MD Work Phone: [facility] 01-26-2023 14:37-0400 Body height 170.2 cm David Fink MD Work Phone: [facility] 01-26-2023 14:37-0400 Body weight 111.13 kg David Fink MD Work Phone: [facility] 01-26-2023 14:37-0400 Diastolic blood pressure 80 mm[Hg] David Fink MD Work Phone: [facility] 01-26-2023 14:37-0400 Heart rate 84 /min David Fink MD Work Phone: [facility] 01-26-2023 14:37-0400 SaO2% (BldA) [Mass fraction] 95 % David Fink MD Work Phone: [facility] 01-26-2023 14:37-0400 Systolic blood pressure 130 mm[Hg] David Fink MD Work Phone: [facility] 12-08-2022 15:16-0500 Body height 170.18 cm No Primary Care Physician [facility] 12-08-2022 15:16-0500 Body mass index (BMI) [Ratio] 38.3 kg/m2 No Primary Care Physician [facility] 12-08-2022 15:16-0500 Body weight 111.13 kg No Primary Care Physician [facility] 12-08-2022 15:16-0500 Diastolic blood pressure 64 mm[Hg] No Primary Care Physician [facility] 12-08-2022 15:16-0500 Heart rate 65 /min No Primary Care Physician [facility] 12-08-2022 15:16-0500 Respiratory rate 18 /min No Primary Care Physician [facility] 12-08-2022 15:16-0500 Systolic blood pressure 104 mm[Hg] No Primary Care Physician [facility] 07-27-2022 13:06-0400 Body height 169 cm David Fink MD Work Phone: [facility] 07-27-2022 13:06-0400 Body weight 101.61 kg David Fink MD Work Phone: [facility] 07-27-2022 13:06-0400 Diastolic blood pressure 62 mm[Hg] David Fink MD Work Phone: [facility] 07-27-2022 13:06-0400 Heart rate 68 /min David Fink MD Work Phone: [facility] 07-27-2022 13:06-0400 Systolic blood pressure 112 mm[Hg] David Fink MD Work Phone: [facility] 06-08-2022 14:02-0400 Body weight 99.34 kg Kyleigh Saucedo MD Work Phone: [facility] 06-08-2022 14:02-0400 Diastolic blood pressure 68 mm[Hg] Kyleigh Saucedo MD Work Phone: [facility] 06-08-2022 14:02-0400 Systolic blood pressure 118 mm[Hg] Kyleigh Saucedo MD Work Phone: [facility] 05-29-2022 15:33-0400 Body temperature 98 [degF] No Primary Care Physician [facility] Work Phone: 05-29-2022 15:33-0400 Diastolic blood pressure 60 mm[Hg] No Primary Care Physician [facility] Work Phone: 05-29-2022 15:33-0400 Heart rate 64 /min No Primary Care Physician [facility] Work Phone: 05-29-2022 15:33-0400 Respiratory rate 17 /min No Primary Care Physician [facility] Work Phone: 05-29-2022 15:33-0400 SaO2% (BldA) [Mass fraction] 95 % No Primary Care Physician [facility] Work Phone: 05-29-2022 15:33-0400 Systolic blood pressure 119 mm[Hg] No Primary Care Physician [facility] Work Phone: 05-28-2022 18:26-0400 Inhaled oxygen flow rate 2 L/min No Primary Care Physician [facility] Work Phone: 05-28-2022 14:46-0400 Body height 170.18 cm No Primary Care Physician [facility] Work Phone: 05-28-2022 14:46-0400 Body mass index (BMI) [Ratio] 36.6 kg/m2 No Primary Care Physician [facility] Work Phone: 05-28-2022 14:46-0400 Body weight 106.2 kg No Primary Care Physician [facility] Work Phone: 05-19-2022 13:54-0400 Body height 170.2 cm Kyleigh Saucedo MD Work Phone: [facility] 05-19-2022 13:54-0400 Body weight 107.5 kg Kyleigh Saucedo MD Work Phone: [facility] 05-19-2022 13:54-0400 Diastolic blood pressure 70 mm[Hg] Kyleigh Saucedo MD Work Phone: [facility] 05-19-2022 13:54-0400 Heart rate 74 /min Kyleigh Saucedo MD Work Phone: [facility] 05-19-2022 13:54-0400 Respiratory rate 16 /min Kyleigh Saucedo MD Work Phone: [facility] 05-19-2022 13:54-0400 Systolic blood pressure 126 mm[Hg] Kyleigh Saucedo MD Work Phone: [facility] 04-23-2022 10:39-0400 Body temperature 97 [degF] Juana Linton WASTE SALVAGER.CLASSIFICATION OFFICER Work Phone: [facility] 04-23-2022 10:39-0400 Body weight 107.86 kg Juana Linton WASTE SALVAGER.CLASSIFICATION OFFICER Work Phone: [facility] 04-23-2022 10:39-0400 Diastolic blood pressure 84 mm[Hg] Juana Linton WASTE SALVAGER.CLASSIFICATION OFFICER Work Phone: [facility] 04-23-2022 10:39-0400 Heart rate 75 /min Juana Linton WASTE SALVAGER.CLASSIFICATION OFFICER Work Phone: [facility] 04-23-2022 10:39-0400 Respiratory rate 18 /min Juana Linton WASTE SALVAGER.CLASSIFICATION OFFICER Work Phone: [facility] 04-23-2022 10:39-0400 SaO2% (BldA) [Mass fraction] 96 % Juana Linton WASTE SALVAGER.CLASSIFICATION OFFICER Work Phone: [facility] 04-23-2022 10:39-0400 Systolic blood pressure 126 mm[Hg] Juana Linton WASTE SALVAGER.CLASSIFICATION OFFICER Work Phone: [facility] 03-19-2022 11:38-0400 Body weight 110.68 kg Kyleigh Saucedo MD Work Phone: [facility] 03-19-2022 11:38-0400 Diastolic blood pressure 70 mm[Hg] Kyleigh Saucedo MD Work Phone: [facility] 03-19-2022 11:38-0400 Systolic blood pressure 140 mm[Hg] Kyleigh Saucedo MD Work Phone: [facility] Encounters Encounter Date Encounter Type Care Provider Facility Start: 07-12-[address] Nomi Persaud MD -[facility] Start: 07-12-2025 End: 07-12-2025 Patient encounter procedure Delmis Shayna COMMISSION ASSOCIATE-C -[facility] Work Phone: Start: 07-12-2025 End: 07-12-[address] David Fink MD Work Phone: -[facility] Start: 06-28-[address] Nomi Persaud MD -[facility] Start: 06-28-2025 End: 06-28-[address] Imani Persaud MD -[facility] Work Phone: Start: 06-28-2025 End: 06-28-[address] David Fink MD Work Phone: [facility] Start: 06-14-[address] Nomi Persaud MD -[facility] Start: 06-14-2025 End: 06-14-[address] Richi Moore MD -[facility] Work Phone: Start: 06-14-2025 End: 06-14-[address] David Fink MD Work Phone: -[facility] Start: 06-08-2025 End: 06-08-[address] David Fink MD Work Phone: -[facility] Start: 06-08-2025 End: 06-08-2025 Patient encounter procedure Delmis Shayna COMMISSION ASSOCIATE-C -Ultrasound [facility] Work Phone: Start: 06-07-2025 End: 06-07-2025 Patient encounter procedure Delmis Shayna COMMISSION ASSOCIATE-C -[facility] Work Phone: Start: 06-07-2025 End: 06-08-[address] David Fink MD Work Phone: -[facility] Start: 06-07-[address] Nomi Persaud MD -[facility] Start: 05-31-[address] Nomi Persaud MD -[facility] Start: 05-31-2025 End: 05-31-2025 Patient encounter procedure Delmis Shayna COMMISSION ASSOCIATE-C -[facility] Work Phone: Start: 05-31-2025 End: 05-31-[address] David Fink MD Work Phone: -[facility] Start: 05-17-[address] Nomi Persaud MD -[facility] Start: 05-17-2025 End: 05-17-[address] Imani Persaud MD -[facility] Work Phone: Start: 05-17-2025 End: 05-17-[address] David Fink MD Work Phone: -[facility] Start: 05-10-[address] Nomi Persuad MD -[facility] Start: 05-10-2025 End: 05-10-2025 Patient encounter procedure Delmis Shayna COMMISSION ASSOCIATE-C -[facility] Work Phone: Start: 05-10-2025 End: 05-10-[address] David Fink MD Work Phone: [facility] Work Phone: Start: 05-04-2025 End: 05-04-2025 Emergency department patient visit Dr. David Fink MD Work Phone: -Emergency Department Work Phone: Start: 05-03-2025 End: 05-03-2025 Patient encounter procedure Delmis Shayna COMMISSION ASSOCIATE-C -[facility] Work Phone: Start: 05-03-2025 End: 05-03-[address] David Fink MD Work Phone: [facility] Work Phone: Start: 05-03-[address] [facility] Start: 04-28-2025 End: 04-28-2025 Emergency department patient visit Dr. David Fink MD Work Phone: -Emergency Department Work Phone: Start: 04-26-2025 End: 04-26-[address] [facility] Work Phone: Start: 04-26-2025 End: 04-26-[address] David Fink MD Work Phone: [facility] Work Phone: Start: 04-26-[address] N[facility] Start: 04-19-[address] N[facility] Start: 04-19-2025 End: 04-19-[address] Imani [facility] Work Phone: Start: 04-19-2025 End: 04-19-[address] David Fink MD Work Phone: [facility] Work Phone: Start: 04-18-2025 End: 04-18-[address] David Fink MD Work Phone: [facility] Work Phone: Start: 04-18-2025 End: 04-18-2025 Patient encounter procedure Keron ALVES -[facility] Work Phone: Start: 04-04-2025 End: 04-04-2025 Patient encounter procedure Delmis Corral NP-[facility] -[facility] Work Phone: Start: 04-04-2025 End: 04-04-[address] David Fink MD Work Phone: [facility] Work Phone: Start: 04-02-2025 ambulatory Theo Collazo lity:[facility] Start: 04-02-2025 Non-patient / Non-visit Dr. Aria Richard MD -[facility] Start: 04-02-2025 End: 04-02-2025 Admission to same day surgery center Dr. Theo Richard MD [facility] Start: 04-02-2025 End: 04-02-[address] David Fink MD Work Phone: [facility] Work Phone: Start: 03-28-2025 End: 03-28-[address] Imani Persaud MD -[facility] Work Phone: Start: 03-28-2025 End: 03-28-[address] David Fink MD Work Phone: [facility] Work Phone: Start: 03-26-2025 End: 03-26-[address] David Fink MD Work Phone: [facility] Work Phone: Start: 03-26-2025 End: 03-26-[address] Imani Persaud MD -[facility] Work Phone: Start: 03-26-2025 End: 03-26-[address] 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 Imani Persaud MD -[facility] Work Phone: Start: 02-26-2025 End: 02-26-2025 ambulatory [facility] Facility:[facility] Start: 02-16-2025 End: 02-16-2025 Telephone encounter Darvin Grady MD Work Phone: [facility] Gynecologic Oncology - [place] Start: 02-15-2025 End: 02-15-2025 Telephone encounter Darvin Grady MD Work Phone: [facility] - [place] Start: 02-14-2025 End: 02-14-2025 Office outpatient visit 15 minutes Ashok Herbert WASTE SALVAGER - CLASSIFICATION OFFICER Work Phone: [facility] Oncology [facility] Comment on above: Pelvic mass in femal e (Primary Dx); Postoperative follow-up; Yeast infection of the skin Start: 02-14-2025 End: 02-14-2025 Telephone encounter Darvin Grady MD Work Phone: [facility] Gynecologic On[facility] - [place] Start: 02-14-2025 End: 02-14-2025 ambulatory ASHOK HERBERT [facility] Start: 01-26-2025 End: 01-27-2025 Subsequent hospital visit by physician Darvin Grady MD Work Phone: [facility] Medical Surgical Unit [facility] H5 Comment on above: Pelvic mass (Primary Dx); Intra-abdominal and pelvic swelling, mass and lump, unspecified site Start: 01-26-2025 End: 01-27-2025 Unknown DARVIN GRADY [facility] Start: 01-23-2025 End: 01-23-2025 ambulatory DARVIN GRADY [facility] Start: 01-19-2025 End: 01-19-2025 Telephone encounter Darvin Grady MD Work Phone: [facility] Oncology [facility] Comment on above: Other (Surgery sched [facility]) Start: 01-17-2025 End: 01-17-2025 Manual pelvic examination Darvin J Grady MD Work Phone: [facility] Gynecologic Oncology - [place] Comment on above: Pelvic mass (Primary Dx) Start: 01-17-2025 End: 01-17-2025 Office outpatient new 30 minutes Darvin Grady MD Work Phone: [facility] Gynecologic Oncology - [place] Comment on above: Pelvic mass in femal e (Primary Dx) Start: 01-17-2025 End: 01-17-2025 ambulatory Darvin Grady MD Work Phone: [facility]necologic [facility] - [place] Start: 01-12-2025 End: 01-12-[address] David Fink MD Work Phone: [facility] Work Phone: Start: 01-12-2025 End: 01-12-[address] Imani Persaud MD -Ultrasound, [facility] Work Phone: Start: 01-12-2025 End: 01-12-2025 ambulatory [facility] Facility:[facility] Start: 01-10-[address] Nomi Persaud MD -[facility] Start: 01-10-2025 End: 01-10-[address] Imani Persaud MD -[facility] Work Phone: Start: 01-10-2025 End: 01-10-2025 ambulatory [facility] Facility:[facility] Start: 01-08-2025 End: 01-08-2025 Emergency department patient visit Dr. Isaiah Villanueva DO -Emergency Department Work Phone: Start: 12-25-2024 End: 12-25-2024 Follow-up encounter Chace ALEX Work Phone: [facility] Start: 12-24-2024 End: 12-24-2024 ambulatory DAVID FINK Facility:[facility] Start: 12-24-2024 End: 12-24-2024 Office outpatient visit 25 minutes Isaías Ribeiro APRN.CNP Work Phone: [facility] Comment on above: Burning with urinati on (Primary Dx) Start: 10-03-2024 End: 10-09-2024 Telephone encounter Susy Smith APRN.CLASSIFICATION OFFICER Work Phone: [facility] Comment on above: Results Start: 09-29-2024 End: 09-29-2024 ambulatory [facility] Facility:[facility] Start: 09-29-2024 End: 09-29-2024 Subsequent hospital visit by physician Screen Mammo [facility] Comment on above: Encounter for screen ing mammogram for breast cancer [Z12.31] Start: 09-25-2024 End: 09-25-2024 ambulatory David Fink MD Work Phone: [facility] Comment on above: Mammogram Start: 09-25-2024 End: 09-25-2024 Telephone encounter David Fink MD Work Phone: Mammogram Comment on above: Orders Start: 08-02-2024 End: 08-02-2024 Subsequent hospital visit by physician Xr [facility] [place] Work Phone: Radiology Comment on above: Acute cough [R05.1] Start: 08-02-2024 End: 08-02-2024 ambulatory [facility] Facility:[facility] Start: 08-02-2024 End: 08-02-2024 Office outpatient visit 25 minutes Isaías Ribeiro APRN.CLASSIFICATION OFFICER Work Phone: [facility] Comment on above: Acute cough (Primary Dx); Bronchitis Start: 08-02-2024 End: 08-02-2024 Telephone encounter Isaías Ribeiro APRN.CLASSIFICATION OFFICER Work Phone: [facility] Comment on above: Results Start: 04-18-2024 End: 04-18-2024 ambulatory [facility] Facility:[facility] Start: 04-18-2024 End: 04-18-2024 Patient encounter procedure Juana Linton APRN.CLASSIFICATION OFFICER Work Phone: [facility] Comment on above: Acute cough (Primary Dx); Rhinosinusitis Start: 03-23-2024 End: 03-23-2024 ambulatory DAVID FINK Facility:[facility] Start: 03-23-2024 End: 03-23-2024 Patient encounter procedure Cinthya Vaughan APRN.CNP Work Phone: [facility] Comment on above: Acute cough (Primary Dx); Viral URI; Viral bronchitis; Eye redness Start: 09-20-2023 Documentation procedure [facility]og lala [facility] Start: 09-20-2023 Letter encounter Mammography Coordinator [facility] Department Start: 09-17-2023 End: 09-17-2023 Subsequent hospital visit by physician Screen Mammo [facility] Comment on above: Encounter for screen ing mammogram for malignant neoplasm of breast [Z12.31] Start: 08-18-2023 Telephone encounter David Fink MD Work Phone: [facility] [place] Comment on above: Patient Question Start: 03-01-2023 End: 03-01-2023 Patient encounter procedure David Fink MD Work Phone: [facility] Comment on above: GERD without esophag itis (Primary Dx); Adjustment disorder with other symptom Start: 02-16-2023 End: 02-16-2023 ambulatory Hilda Morin APRN.CNP Work Phone: [facility] [place] Comment on above: COVID-19 (Primary Dx ) Start: 02-16-2023 End: 02-16-2023 Telemedicine consultation with patient Hilda Sadlerjuany PERES Work Phone: [facility] Start: 01-28-2023 Telephone encounter David Fink MD Work Phone: [facility] Comment on above: Results Start: 01-26-2023 End: 01-26-2023 Subsequent hospital visit by physician Xr [facility] Work Phone: Radiology Comment on above: Trigger little finge r of right hand [M65.351] Start: 01-26-2023 End: 01-26-2023 Patient encounter procedure David Fink MD Work Phone: [facility] [place] Comment on above: 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, unspecified vessel or lesion type (HCC) (Primary Dx); Hyperlipidemia, mixed; Hyperglycemia; Obesity, Class I, BMI 30-34.9; Trigger little finger of right hand; Right elbow pain; Numbness; GERD without esophagitis; Cough, unspecified type; Adjustment disorder with anxious mood Start: 12-08-2022 Patient encounter procedure No Primary Care Physician [facility] Start: 12-08-2022 End: 12-08-2022 Patient encounter procedure No Primary Care Physician [facility] Start: 11-30-2022 End: 11-30-2022 ambulatory No Primary Care Physician [facility] Work Phone: Start: 11-30-2022 End: 11-30-2022 Patient encounter procedure No Primary Care Physician [facility] Start: 10-13-2022 Orders Only Tsering orellana MD Work Phone: [facility] Provider Adult Start: 07-30-2022 Documentation procedure Mammog lala Coordinator [facility] Start: 07-30-2022 Letter encounter Mammography Coordinator [facility] Department Start: 07-30-2022 End: 07-30-2022 Subsequent hospital visit by physician Screen Mammo [facility] Comment on above: Obesity, Class I, BM I 30-34.9 [E66.9] Start: 07-28-2022 Telephone encounter David Fink MD Work Phone: [facility] Comment on above: Results Start: 07-27-2022 End: 07-27-2022 Patient encounter procedure David Fink MD Work Phone: [facility] Comment on above: 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, unspecified vessel or lesion type (HCC) (Primary Dx); Blood in stool; Hyperglycemia; Tobacco use; Hyperlipidemia, mixed; Neck mass Start: 06-25-2022 Telephone encounter David Fink MD Work Phone: [facility] Comment on above: Patient Question Start: [...] encounter procedure Kyleigh Saucedo MD Work Phone: [facility] Start: 05-28-2022 End: 05-29-2022 Evaluation and management of inpatient No Primary Care Physician [facility]-Medical Surgical 3 Start: 05-25-2022 Non-patient / Non-visit No [facility] Physician [facility] Start: 05-25-2022 End: 05-25-2022 Patient encounter procedure No [facility] Care Physician [facility]-Cardiovascul [facility] Services Start: 05-19-2022 End: 05-19-2022 Patient encounter procedure Kyleigh Saucedo MD Work Phone: OB/Gynecology Comment on above: Menorrhagia with irr egular cycle (Primary Dx); Uterine leiomyoma, unspecified location; Iron deficiency anemia due to chronic blood loss Start: 05-04-2022 Refill Kyleigh saeed MD Work Phone: OB/Gynecology Comment on above: Refill Request Start: 04-23-2022 End: 04-23-2022 Subsequent hospital visit by physician [facility] Work Phone: Radiology Comment on above: Cough [R05.9] Start: 04-23-2022 End: 04-23-2022 Patient encounter procedure Juana Linton APRN.CLASSIFICATION OFFICER Work Phone: [facility] Comment on [...] encounter fro m caregiver [facility] Provider [facility] Start: 09-22-2021 Telephone encounter Kyleigh Saucedo [...] Work Phone: Comment on above: Performed at: [place] [id number] Director: Richi Vargas PhD, Phone: [phone] Start: 05-03-2025 Serum inorganic phos phate measurement [...] Work Phone: Start: 04-28-[address] Bucyk Fink MD Work Phone: Start: 04-26-2025 Estimated [...] lds trcg only w/o i&r Shasha Leahy WASTE SALVAGER - CLASSIFICATION OFFICER Work Phone: Start: 01-26-2025 Antibody screen DARVIN GRADY Comment on above: Order Comment: HOLD. Specimen is valid for 3 days - nurse to verify valid specimen Performed By: #### L AB15 #### Penology Professor: KYREE WEATHERS ([id number]) [facility]) [address] [place] [address] Start: 01-26-2025 ABO and Rh group [Ty pe] in Blood by Confirmatory method Darvin Grady MD Work Phone: Start: 01-26-2025 Basic metabolic pane l calcium total Shasha Leahy WASTE SALVAGER - CLASSIFICATION OFFICER Work Phone: Start: 01-26-2025 Blood typing serolog ic abo Darvin Grady MD Work Phone: Start: 01-12-[address] Daivd Fink MD Work Phone: Start: 01-10-2025 Immature [...] et rgnt auto w/o microscopy Karena Arzola WASTE SALVAGER.CLASSIFICATION OFFICER Work Phone: Start: 09-29-2024 Mammography Darvin moncada MD Work Phone: Start: 08-02-2024 Radiologic exam ches t 2 views Isaías Ribeiro WASTE SALVAGER.CLASSIFICATION OFFICER Work Phone: Start: 09-17-2023 Screening mammograph y [...] of coronary artery stent placement Keron Ross COMMISSION ASSOCIATEPanchoC Comment on above: IKT-EMG-Ynll LAD w/ 4.5 x 20 mm Veriflex 06/2014; QPV-ZLL-Vhbk RCA w/ 4.0 X 22 Orsiro 03/31/21 History of cholecystectomy History of cholecystectomy No Primary Care Physician Plan of Treatment Date Care Activity Detail Author Start: 2045 RSV Immunization for Adults (1 - 1-dose 75+ series) RSV Immunization for Adults (1 - 1-dose 75+ series) [facility] Start: 09-08-2028 Lipid 1996 panel - Serum or Plasma Lipid Screening [facility] Start: 09-08-2028 Lipid panel Lipid Screening [facility] Start: 07-24-2027 Lipid 1996 panel - Serum or Plasma Lipid Screening [facility] Start: 07-24-2027 LIPID SCREEN LIPID SCREEN [facility] Start: 09-23-2026 HPV TESTING HPV TESTING [facility] Start: 09-23-2026 PAP TESTING PAP TESTING [facility] Start: 09-23-2026 Screening for malignant neoplasm of cervix [facility] Start: 09-08-2026 Diabetes Screening Diabetes Screening [facility] Start: 03-20-2026 End: 03-20-2026 Patient encounter procedure 03/20/2026 2:00 PM EDT Office Visit Division of Medical Oncology [address] [place] [address] Christopher Cunningham MD [address] [place] [address] Division of Medical Oncology Start: 01-26-2026 DIABETES SCREEN DIABETES SCREEN [facility] Start: 01-26-2026 Diabetes Screening Diabetes Screening [facility] Start: 09-29-2025 Screening for malignant neoplasm of breast [facility] Start: 07-27-2025 DIABETES SCREEN DIABETES SCREEN [facility] Start: 07-24-2025 DIABETES SCREEN DIABETES SCREEN [facility] Start: 07-16-2025 Influenza vaccination Influenza Vaccine (Season Ended) [facility] Start: 07-12-2025 [facility] Start: 06-28-2025 [facility] Start: 06-14-2025 [facility] Start: 06-14-2025 [facility] Start: 06-07-2025 [facility] Start: 05-31-2025 [facility] Start: 05-17-2025 Serum inorganic phosphate measurement [facility] Start: 05-17-2025 [facility] Start: 05-10-2025 [facility] Start: 05-04-2025 [facility] Start: 05-04-2025 End: 05-04-2025 [facility] Start: 05-04-2025 [facility] Start: 05-04-2025 Bacteria identified in Blood by Culture Blood Culture [facility] Start: 05-04-2025 Bacteria identified in Urine by Culture Urine Culture [facility] Start: 05-04-2025 Blood culture Blood Culture [facility] Start: 05-03-2025 Patient referral [facility] Work Phone: Start: 05-03-2025 Direct antiglobulin test.unspecified reagent [Presence] on Red Blood Cells [facility] Start: 05-03-2025 Haptoglobin [Mass/volume] in Serum or Plasma [facility] Start: 05-03-2025 Hepatic function panel [facility] Start: 05-03-2025 Lactate dehydrogenase measurement [facility] Start: 05-03-2025 Reticulocyte count [facility] Start: 05-03-2025 [facility] Start: 04-28-2025 [facility] Start: 04-28-2025 [facility] Start: 04-28-2025 End: 04-28-2025 [facility] Start: 04-28-2025 Oxygen therapy [facility] Start: 04-28-2025 Chemotherapy care management [facility] Start: 04-28-2025 Bacteria identified in Blood by Culture Blood Culture [facility] Start: 04-28-2025 Bacteria identified in Urine by Culture Urine Culture [facility] Start: 04-28-2025 Blood culture Blood Culture [facility] Start: 04-26-2025 [facility] Start: 04-19-2025 Venous catheter care management [facility] Start: 04-19-2025 [facility] Start: 04-02-2025 Anesthesia access central venous circulation ANESTH VASCULAR ACCESS [facility] Start: 04-02-2025 Insj tunneled ctr vad w/subq port age 5 yr/> INSERT TUNNELED CV CATH [facility] Start: 04-02-2025 Patient referral [facility] Work Phone: Start: 04-02-2025 Patient discharge [facility] Start: 03-28-2025 Patient referral [facility] Work Phone: Start: 02-26-2025 Patient referral [facility] Work Phone: Start: 02-09-2025 End: 02-09-2025 Patient encounter procedure 02/09/2025 11:00 AM EDT Office Visit [facility] Gynecologic Oncology [facility] [address] [place] [address] Ashok Herbert, WASTE SALVAGER - CLASSIFICATION OFFICER [address] [place] [address] [facility] Gynecologic Oncology [facility] Start: 01-26-2025 End: 01-26-2025 Admission to same day surgery center 01/26/2025 8:30 AM EDT - 01/26/2025 10:00 AM EDT Surgery [facility] MAIN OR [address] [place] [address] Darvin Grady MD [address] [place] [address] LAPAROTOMY, EXPLORATORY [60299 (CPT )] [facility] Comment on above: LAPAROTOMY, EXPLORATORY [90628 (CPT )] Start: 01-26-2025 End: 01-26-2025 Exploratory laparotomy celiotomy w/wo biopsy spx LAPAROTOMY, EXPLORATORY Intra-abdominal and pelvic swelling, mass and lump, unspecified site 01/26/2025 8:30 AM EDT [facility] Start: 01-26-2025 End: 01-26-2025 Laparoscopy surg w/bx single/multiple LAPAROSCOPY, WITH BIOPSY Intra-abdominal and pelvic swelling, mass and lump, unspecified site 01/26/2025 8:30 AM EDT LOCATED [facility] Operating Room Start: 01-26-2025 End: 01-26-2025 Laparoscopy w/rmvl adnexal structures LAPAROSCOPIC, SALPINGO-OOPHORECTOMY Intra-abdominal and pelvic swelling, mass and lump, unspecified site 01/26/2025 8:30 AM EDT LOCATED [facility] Operating Room Start: 01-26-2025 End: 01-26-2025 Lmtd lmphadec staging spx pel&para-aortic LYMPHADENECTOMY, PARA-AORTIC OR PELVIC, LIMITED, FOR STAGING Intra-abdominal and pelvic swelling, mass and lump, unspecified site 01/26/2025 8:30 AM EDT [facility]ATED [facility] Operating Room Start: 01-26-2025 Subsequent hospital visit by physician [facility] MAIN OR Start: 01-23-2025 End: 01-23-2025 Admission to establishment 01/23/2025 9:30 AM EDT Pre-Admission Testing [facility] Pre-Admit Testing [address] [place] [address] Darvin Grady MD [address] [place] [address] LOCATED [facility] Pre-Admit Testing Start: 01-08-2025 [facility] Start: 01-08-2025 Referral to oncologist [facility] Start: 09-29-2024 End: 09-29-2024 Patient encounter procedure 09/29/2024 1:30 PM EST Appointment Mammogram [address] [place] [address] Encounter for screening mammogram for breast cancer [Z12.31] Mammogram Comment on above: Encounter for screening mammogram for br east cancer [Z12.31] Start: 09-17-2024 Mammography Mammogram Screening [facility] Start: 09-17-2024 Screening for malignant neoplasm of breast Mammogram Screening [facility] Start: 09-08-2024 Diabetes mellitus screening Diabetes Screening [facility] Start: 09-08-2024 Hepatitis B surface antibody level LDL Cholesterol [facility] Start: 08-31-2024 Annual PCP Team Chronic Disease Visit Annual PCP Team Chronic Disease Visit [facility] Start: 08-31-2024 Hepatitis B Vaccine (1 of 3 - 19+ 3-dose series) Hepatitis B Vaccine (1 of 3 - 19+ 3-dose series) [facility] Comment on above: Postponed from 1989 (Declined at t his time) Start: 08-31-2024 Hepatitis B Vaccine (1 of 3 - 3-dose series) Hepatitis B Vaccine (1 of 3 - 3-dose series) [facility] Comment on above: Postponed from 1970 (Declined at t his time) Start: 08-31-2024 Pneumococcal vaccination [facility] Comment on above: Postponed from 1976 (Declined at t his time) Start: 08-31-2024 Shingrix Vaccine (1 of 2) Shingrix Vaccine (1 of 2) [facility] Comment on above: Postponed from 2020 (Declined at t his time) Start: 08-31-2024 Urine microalbumin profile DTaP,Tdap,Td Vaccine (1 - Tdap) [facility] Comment on above: Postponed from 1989 (Declined at t his time) Start: 07-16-2024 Covid-19 Vaccine ( season) Covid-19 Vaccine ( season) [facility] Start: 07-16-2024 Covid-19 Vaccine ( season) Covid-19 Vaccine ( season) [facility] Start: 07-16-2024 Influenza vaccination [facility] Start: 05-14-2024 Influenza vaccination Influenza Vaccine (#1) [facility] Comment on above: Postponed from 07/16/2023 (Declined at t his time) Start: 03-01-2024 ANNUAL PCP TEAM CHRONIC DISEASE VISIT ANNUAL PCP TEAM CHRONIC DISEASE VISIT [facility] Start: 02-17-2024 ANNUAL PCP TEAM CHRONIC DISEASE VISIT ANNUAL PCP TEAM CHRONIC DISEASE VISIT [facility] Start: 01-27-2024 ANNUAL PCP TEAM CHRONIC DISEASE VISIT ANNUAL PCP TEAM CHRONIC DISEASE VISIT [facility] Start: 01-27-2024 COVID-19 VACCINE (#1) COVID-19 VACCINE (#1) [facility] Comment on above: Postponed from [birth year]/22/1971 (Declined at t his time) Start: 11-15-2023 Behavioral Health Screening Behavioral Health Screening [facility] Start: 07-30-2023 Mammography [facility] Start: 07-27-2023 ANNUAL PCP TEAM CHRONIC DISEASE VISIT ANNUAL PCP TEAM CHRONIC DISEASE VISIT [facility] Start: 07-27-2023 HEPATITIS C SCREENING HEPATITIS C SCREENING [facility] Comment on above: Postponed from 1988 (Declined at t his time) Start: 07-24-2023 COLORECTAL CANCER SCREENING COLORECTAL CANCER SCREENING [facility] Start: 07-24-2023 FECAL OCCULT BLOOD FECAL OCCULT BLOOD [facility] Start: 07-24-2023 Hepatitis B surface antibody level LDL CHOLESTEROL [facility] Start: 07-24-2023 Screening for malignant neoplasm of colon [facility] Start: 07-20-2023 Adult depression screening assessment DEPRESSION SCREENING [facility] Start: 07-16-2023 Covid-19 Vaccine ( season) Covid-19 Vaccine () [facility] Start: 07-16-2023 Influenza vaccination [facility] Start: 05-14-2023 Influenza vaccination INFLUENZA (#1) [facility] Comment on above: Postponed from 07/16/2022 (Declined at t his time) Start: 01-25-2023 End: 03-27-2023 Hemoglobin A1c in Blood HGB A1C Lab Routine Hyperglycemia Expected: 01/25/2023, Expires: 03/27/2023 [facility] Work Phone: Comment on above: Expected: 01/25/2023, Expires: 3 Start: 07-27-2022 End: 09-26-2022 Hemoglobin A1c in Blood [facility] Work Phone: Comment on above: Expected: 07/27/2022, Expires: 2 Start: 07-16-2022 Influenza vaccination [facility] Start: 05-29-2022 Introduction of urinary catheter [facility] Work Phone: Start: 05-29-2022 Patient discharge [facility] Work Phone: Start: 05-28-2022 Ambulation therapy management [facility] Work Phone: Start: 05-28-2022 Continuous pulse oximetry [facility] Work Phone: Start: 05-28-2022 Elevation of head of bed [facility] Work Phone: Start: 05-28-2022 Incentive spirometry [facility] Work Phone: Start: 05-28-2022 Measuring intake and output [facility] Work Phone: Start: 05-28-2022 Notification of physician [facility] Work Phone: Start: 05-28-2022 Oxygen therapy [facility] Work Phone: Start: 05-28-2022 Patient education [facility] Work Phone: Start: 05-28-2022 Procedures relating to eating and drinking [facility] Work Phone: Start: 05-28-2022 Taking patient vital signs [facility] Work Phone: Start: 05-28-2022 Wound care [facility] Work Phone: Start: 05-28-2022 [facility] Work Phone: Start: 05-28-2022 Introduction of urinary catheter [facility] Work Phone: Start: 05-28-2022 Following clinical pathway protocol [facility] Work Phone: Start: 05-28-2022 Admission procedure [facility] Work Phone: Start: 05-21-2022 Electrocardiographic procedure [facility] Work Phone: Start: 03-19-2022 End: 05-19-2022 CBC panel - Blood by Automated count CBC Lab Routine Menorrhagia with irregular cycle Expected: 03/19/2022, Expires: 05/19/2022 [facility] Work Phone: Comment on above: Expected: 03/19/2022, Expires: 2 Start: 03-19-2022 End: 05-19-2022 IRON + TIBC IRON + TIBC Lab Routine Menorrhagia with irregular cycle Expected: 03/19/2022, Expires: 05/19/2022 [facility] Work Phone: Comment on above: Expected: 03/19/2022, Expires: 2 Start: 03-19-2022 End: 05-19-2022 Thyrotropin [Units/volume] in Serum or Plasma TSH BLD Lab Routine Menorrhagia with irregular cycle Expected: 03/19/2022, Expires: 05/19/2022 [facility] Work Phone: Comment on above: Expected: 03/19/2022, Expires: 2 Start: 11-15-2021 DEPRESSION ASSESSMENT DEPRESSION ASSESSMENT [facility] Start: 07-16-2021 Influenza vaccination INFLUENZA (#1) [facility] Start: 2020 Screening for malignant neoplasm of lung Lung Cancer Screening [facility] Start: 2020 SHINGRIX VACCINE (1 of 2) SHINGRIX VACCINE (1 of 2) [facility] Start: 2020 Zoster vaccine hzv live for subcutaneous use ZOSTER (SHINGLES) VACCINE (1 of 2) [facility] Start: 2020 Zoster Vaccines (1 of 2) Zoster Vaccines (1 of 2) [facility] Start: 2015 COLOGUARD (FIT-DNA) COLOGUARD (FIT-DNA) [facility] Start: 2015 Colonoscopy COLONOSCOPY [facility] Start: 2015 COLORECTAL CANCER SCREENING COLORECTAL CANCER SCREENING [facility] Start: [address] COLONOGRAPHY [facility] Start: 2015 DIABETES SCREEN DIABETES SCREEN [facility] Start: 2015 FECAL OCCULT BLOOD FECAL OCCULT BLOOD [facility] Start: 2015 LIPID SCREEN LIPID SCREEN [facility] Start: 2015 Screening for malignant neoplasm of colon [facility] Start: 2015 SIGMOIDOSCOPY SIGMOIDOSCOPY [facility] Start: 2010 Lipid panel LIPID SCREENING [facility] Start: 2010 Mammography MAMMOGRAM [facility] Start: 2000 HPV TESTING HPV TESTING [facility] Start: 2000 Screening for malignant neoplasm of cervix [facility] Start: 1991 PAP TESTING PAP TESTING [facility] Start: 1991 Screening for malignant neoplasm of cervix [facility] Start: 1989 DTaP/Tdap/Td Vaccines (1 - Tdap) DTaP/Tdap/Td Vaccines (1 - Tdap) [facility] Start: 1989 Hepatitis B vaccination HEP B VACCINE (1 of 3 - 19+ 3-dose series) [facility] Start: 1989 Hepatitis B Vaccine (1 of 3 - 19+ 3-dose series) Hepatitis B Vaccine (1 of 3 - 19+ 3-dose series) [facility] Start: 1989 Hepatitis B Vaccines (1 of 3 - 19+ 3-dose series) Hepatitis B Vaccines (1 of 3 - 19+ 3-dose series) [facility] Start: 1989 Pneumococcal vaccination PNEUMOCOCCAL VACCINE SERIES (1 of 2 - PCV) [facility] Start: 1989 Pneumococcal Vaccine: 50+ (1 of 2 - PCV) Pneumococcal Vaccine: 50+ (1 of 2 - PCV) [facility] Start: 1989 Pneumococcal Vaccine: 50+ Years (1 of 2 - PCV) Pneumococcal Vaccine: 50+ Years (1 of 2 - PCV) [facility] Start: 1989 Third diphtheria, tetanus and acellular pertussis (DTaP) vaccination TDAP (ADULT) [facility] Start: 1989 Urine microalbumin profile [facility] Start: 1988 Anxiety Screening Anxiety Screening [facility] Start: 1988 Depression Screening Depression Screening [facility] Start: 1988 HEPATITIS C SCREENING HEPATITIS C SCREENING [facility] Start: 1988 Hepatitis C screening Hepatitis C Screening [facility] Start: 1988 HIV SCREENING HIV SCREENING [facility] Start: 1985 HIV screening HIV SCREENING DISCUSSION [facility] Start: 1982 Adult depression screening assessment DEPRESSION SCREENING [facility] Start: 1982 COVID-19 VACCINE (1) COVID-19 VACCINE (1) [facility] Start: 1976 PNEUMOCOCCAL (1 - PCV) PNEUMOCOCCAL (1 - PCV) [facility] Start: 1976 Pneumococcal vaccination [facility] Start: 1975 COVID-19 VACCINE (#1) COVID-19 VACCINE (#1) [facility] Start: 1975 COVID-19 VACCINE (1) COVID-19 VACCINE (1) [facility] Start: 1971 MMR Vaccines (1 of 1 - Standard series) MMR Vaccines (1 of 1 - Standard series) [facility] Start: 01-22-1971 COVID-19 VACCINE (#1) COVID-19 VACCINE (#1) [facility] Start: 1970 HEPATITIS B (1 of 3 - 3-dose series) HEPATITIS B (1 of 3 - 3-dose series) [facility] Start: 1970 Hepatitis B Vaccine (1 of 3 - 3-dose series) Hepatitis B Vaccine (1 of 3 - 3-dose series) [facility] Start: 1970 Hepatitis C screening HEPATITIS C VIRUS SCREENING [facility] Start: 1970 HIV screening HIV Screening [facility] Start: 1970 Lipid panel Lipid Panel [facility] Start: 1970 Screening for malignant neoplasm of colon [facility] Start: 1970 Tetanus vaccination TETANUS [facility] Alanine aminotransfe rase [Enzymatic activity/volume] in Serum or Plasma [facility] Alanine aminotransfe rase [Enzymatic activity/volume] in Serum or Plasma [facility] Albumin [Mass/volume ] in Serum or Plasma [facility] Albumin [Mass/volume ] in Serum or Plasma [facility] Alkaline phosphatase [Enzymatic activity/volume] in Serum or Plasma [facility] Alkaline phosphatase [Enzymatic activity/volume] in Serum or Plasma [facility] Anion gap in Serum or Plasma [facility] Bacteria identified in Urine by Culture BACTERIAL CULTURE, URINE Microbiology Routine Burning with urination 12/24/2024 1:56 PM EST [facility] Work Phone: Basic metabolic 2008 panel with ionized calcium - Serum or Plasma [facility] Bilirubin, total measurement [facility] Bilirubin, total measurement [facility] Bilirubin.direct [Mass/volume] in Serum or Plasma [facility] BUN/Creatinine ratio [facility] Calcium [Mass/volume ] in Serum or Plasma [facility] Carbon dioxide, tota l [Moles/volume] in Central venous blood [facility] CBC W Auto Different ial panel - Blood [facility] CBC W Auto Different ial panel - Blood [facility] Comprehensive metabo lic 2000 panel - Serum or Plasma [facility] Creatinine [Mass/vol ume] in Serum or Plasma [facility] End: 10-25-2025 DBT Breast - bilateral screening [facility] Work Phone: Comment on above: 1 Occurrences starting 09/25/2024 until 10/25/2025 DBT Breast - bilater al screening BRITTANY SCREENING W [facility] Radiology Routine Encounter for screening mammogram for breast cancer 09/29/2024 1:34 PM EST [facility] Work Phone: End: 01-27-2024 EMG(NEURO/NI) EMG(NEURO/NI) EMG Routine Numbness 1 Occurrences starting 01/26/2023 until 01/27/2024 [facility] Work Phone: Comment on above: 1 Occurrences starting 01/26/2023 until 01/27/2024 Erythrocyte mean cor puscular volume determination [facility] Exploratory laparoto my celiotomy w/wo biopsy spx LAPAROTOMY, EXPLORATORY Intra-abdominal and pelvic swelling, mass and lump, unspecified site [facility] Ferritin [Mass/volum e] in Serum or Plasma [facility] Folate [Moles/volume ] in Serum or Plasma [facility] Glucose [Mass/volume ] in Serum or Plasma [facility] Hematocrit [Volume F raction] of Blood [facility] Hemoglobin [Mass/vol ume] in Blood [facility] Hepatic function panel [facility] Iron and Iron bindin g capacity panel - Serum or Plasma [facility] Laparoscopy w/rmvl a dnexal structures LAPAROSCOPIC, SALPINGO-OOPHORECTOMY Intra-abdominal and pelvic swelling, mass and lump, unspecified site [facility] Leukocytes [#/volume ] in Blood [facility] Lipid 1996 panel - S noemi or Plasma [facility] Lmtd lmphadec stagin g spx pel&para-aortic LYMPHADENECTOMY, PARA-AORTIC OR PELVIC, LIMITED, FOR STAGING Intra-abdominal and pelvic swelling, mass and lump, unspecified site [facility] Magnesium measurement [facility] Magnesium measurement [facility] Magnesium measurement [facility] Mean corpuscular hem oglobin concentration determination [facility] Mean corpuscular hem oglobin determination [facility] Measurement of renal function [facility] Neutrophil count [facility] Neutrophil percent differential count [facility] Non-Gynecologic Cytology [facility] Work Phone: Comment on above: Release Upon Ordering for 1 Occurrences starting 01/26/2025, 1 completed Patient Education [facility] Work Phone: Patient referral [facility] Work Phone: Platelets [#/volume] in Blood [facility] Potassium measurement [facility] Red blood cell count [facility] Red cell distributio n width determination [facility] Serum chloride measurement [facility] Serum inorganic phos phate measurement [facility] Serum inorganic phos phate measurement [facility] Sodium measurement [facility] Thyroid stimulating hormone measurement [facility] Tissue exam [facility] Comment on above: Release Upon Ordering for 1 Occurrences starting 01/26/2025 Total protein measurement [facility] Total protein measurement [facility] Urea nitrogen [Mass/ volume] in Serum or Plasma [facility] Urine culture [facility] Urine culture [facility] US Abdomen limited [facility] End: 08-26-2023 Us soft tissue head & neck real time imge docm US HEAD/NECK SOFT TISSUE OTHER Radiology Routine Neck mass 1 Occurrences starting 07/27/2022 until 08/26/2023 [facility] Work Phone: Comment on above: 1 Occurrences starting 07/27/2022 until 08/26/2023 Vitamin B12 measurement [facility] End: 05-18-2025 XR Chest PA and Lateral XR CHEST 2V FRONTAL/LAT Radiology STAT Acute cough 1 Occurrences starting 04/18/2024 until 05/18/2025 [facility] Work Phone: Comment on above: 1 Occurrences starting 04/18/2024 until 05/18/2025 End: 02-25-2024 XR HAND GENERAL 3V PA/LAT/OBL RIGHT XR HAND GENERAL 3V PA/LAT/OBL RIGHT Radiology Routine Trigger little finger of right hand 1 Occurrences starting 01/26/2023 until 02/25/2024 [facility] Work Phone: Comment on above: 1 Occurrences starting 01/26/2023 until 02/25/2024 XR HAND GENERAL 3V P A/LAT/OBL RIGHT XR HAND GENERAL 3V PA/LAT/OBL RIGHT Radiology Routine Trigger little finger of right hand 01/26/2023 3:43 PM EDT [facility] Work Phone: [facility] Payers Date Payer Category Payer Self-pay [id number] 2024 [employer] Man[employer] - O ANTH BLUE CROSS [id number] 2024 Managed Care (unspecified) [facility] P[facility] POS [id number] 2022 [employer] Blue [employer] BLUE ACCE SS PPO [id number] 2022 Unknown [employer] BLUE ACCE SS PPO [id number] 2022-Present [phone] [id number] [place] [id number] PPO [id number] 2022 Unknown ANTHEM BLUE ACCE SS PPO [id number] 2022-Present [id number] [place] [address] PPO [id number] 2022 Unknown [id number] 1970 Unknown [id number] 2.16.840.1.630656.3.579.2. 594 Medicaid [id number] Unknown [id number] 2.16.840.1.820895.3.579.2. 462 Unknown [id number] 2.16.840.1.145159.3.579.2. 462 Unknown [id number] 2.16.840.1.664881.3.579.2. 462 Unknown [id number] 2.16.840.1.206945.3.579.2. 462 Unknown [id number] 2.16.840.1.798894.3.579.2. 462 Unknown [id number] 2.16.840.1.249285.3.579.2. 462 Unknown [id number] 2.16.840.1.653860.3.579.2. 462 Unknown [id number] 2.16.840.1.498997.3.579.2. 462 Unknown [id number] 2.16.840.1.791141.3.579.2. 462 Unknown [id number] 2.16.840.1.688264.3.579.2. 462 Unknown [id number] 2.16.840.1.643176.3.579.2. 462 Unknown [id number] 2.16.840.1.048854.3.579.2. 462 Unknown [id number] 2.16.840.1.552173.3.579.2. 462 Unknown [id number] 2.16.840.1.448305.3.579.2. 462 Unknown [id number] 2.16.840.1.174042.3.579.2. 462 Unknown [id number] 2.16.840.1.495675.3.579.2. 462 Unknown [id number] 2.16.840.1.658851.3.579.2. 462 Unknown [id number] 2.16.840.1.735374.3.579.2. 462 Unknown [id number] 2.16.840.1.747268.3.579.2. 462 Unknown [id number] 2.16.840.1.521432.3.579.2. 462 Unknown [id number] 2.16.840.1.057422.3.579.2. 462 Unknown [id number] 2.16.840.1.947776.3.579.2. 462 Unknown [id number] 2.16.840.1.588752.3.579.2. 462 Unknown [id number] Unknown [id number] Unknown [id number] Social History Date Type Detail Facility Start: 05-21-2022 End: 12-08-2022 Tobacco smoking status IDIS Tobacco smoking consumption unknown [facility] Work Phone: Start: 1970 Sex Assigned At Not on file [facility] Start: 09-23-2021 End: 05-04-2025 Tobacco smoking status IDIS Smokes tobacco daily [facility] Start: 09-23-2021 End: 03-21-2025 Tobacco use and exposure Smokeless tobacco non-user [facility] Start: 09-25-2021 End: 12-24-2024 Alcohol intake Ex-drinker (finding) [facility] Start: 1970 Sex Assigned At Female [facility] Start: 03-09-2022 End: 10-13-2022 Exposure to SARS-CoV-2 (event) Not sure [facility] Start: 06-09-2019 None [place] [facility] Start: 03-28-2021 Cigarettes [place] [facility] Start: 07-20-2022 End: 01-25-2023 History SDOH Alcohol Frequency 2 [facility] Start: 07-20-2022 End: 01-25-2023 History SDOH Alcohol Std Drinks 1 [facility] Start: 07-20-2022 History SDOH Social Connections Phone 5 [facility] Start: 07-20-2022 End: 01-25-2023 History SDOH Social Connections Living 3 [facility] Start: 07-20-2022 End: 01-25-2023 History SDOH Financial 4 [facility] Start: 01-25-2023 History SDOH Alcohol Std Drinks 0 [facility] Start: 01-24-2023 End: 03-21-2025 History of Social function [facility] Start: 01-24-2023 End: 03-21-2025 Social connection and isolation panel [facility] Do you belong to any clubs or organizations such as religion groups, unions, fraternal or athletic groups, or school groups? No [facility] Attends Club or Organization Meetings Not on file [facility] Are you now , , , , never or living with a partner? [facility] How often to you hav e a drink containing alcohol? Never [facility] How hard is it for y ou to pay for the very basics like food, housing, medical care, and heating Not very hard [facility] Do you feel stress - tense, restless, nervous, or anxious, or unable to sleep at night because your mind is troubled all the time - these days [OSQ] Rather much [facility] (I/We) worried wheth er (my/our) food would run out before (I/we) got money to buy more. Never true [facility] Start: 09-30-2021 Gender identity Identifies as female gender (finding) [facility] Start: 09-30-2021 Sexual orientation Heterosexual (chip de los santos) [facility] Start: 11-15-1985 History of tobacco use Cigarette Smo ker [facility] Start: 01-17-2025 End: 03-21-2025 Alcoholic beverage intake Lifetime non-drinker (finding) [facility] Start: 01-16-2025 End: 02-27-2025 Sex Female (finding) [facility] Start: 04-15-1986 Tobacco smoking stat us NHIS Occasional tobacco smoker [facility] Start: 03-21-2025 Tobacco Comment I am slowly qu itting. Down from a pack a day to less than half a pack a day. [facility] NEGATED: Highlighted row Not [facility] Medical Equipment Procedure Code Equipment Code Equipment Origin al Text Equipment Identifier Dates Insertion, vascular access port ([id number]) Vascular port/catheter [id number] FDA Start: 04-02-2025 Hysterectomy, total, abdominal Plant polysaccharide haemostatic agent, bioabsorbable [id number] FDA Start: 05-28-2022 Goals Date Patient Goal Desired Activity /State Functional Status Date Assessment Result Facility 05-29-2022 Functional status Ambulates [facility] Work Phone: Mental Status Date Assessment Result Facility 05-04-2025 Cognitive function Level Of Cons ciousness Awake;Alert;Appropriate;Follow s Commands [facility] Work Phone: 04-28-2025 Cognitive function Level Of Cons ciousness Awake;Alert;Appropriate;Follow s Commands [facility] Work Phone: 04-02-2025 Cognitive function Voice/Name [facility] Work Phone: 05-29-2022 Cognitive function Level Of Cons ciousness Awake;Alert;Appropriate;Follow s Commands [facility] Work Phone: 05-28-2022 Cognitive function Voice/Name [facility] Work Phone: 05-28-2022 Cognitive function Memory Description Int act [facility] Work Phone: Clinical Notes 03-31-2021 to 06-14-2025 Note Date & Type Note Facility 06-14-2025 Progress note [facility] 06-14-2025 Progress note Note Date/Time June 14, 2025 10:59am [facility] [place] [address] OFFICE VISIT Date of Service: 06/14/25 1015 MR#: [id number] Acct: [id number] Name: UZMA MCDONALD Rep #: [id number] : 1970 From: Richi Moore MD Age/Sex: 54/F Location[place] [facility] Status: Signed HPI Subjective Date of Service 06/14/25 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 The patient was seen in [facility] emergency room January 08, 2025 with [...] activity and tumor cell necrosis. IHC at [facility] positive for SMA, negative for desmin, STAT6, pancytokeratin, S100 and CD34. Additional IHC done at [facility] showed negative Desmin, negative Caldesmon, [...] Interval History Comes for C3D8. Feels well. [facility] Medical History Iron deficiency anemia Constipation Transaminitis [...] applicable) CC: Dr. David Fink MD ~ [facility] Work Phone: 1(812) 695-958407-25-2025 Radiology Diagnostic study note [facility] Imaging Services [address] [place] [place], [place] [address] Abdomen Limited MR#: [id number] Acct: [id number] Name: UZMA MCDONALD Rep #: [id number] : 1970 F 54 From: Pet er Peer DO PCP: Dr. David Fink MD Status: REG C Study:Abdomen Limited Date of Exam: 05/16 04/08 Exam# [id number] Ordering Dr: Delmis Sibley COMMISSION ASSOCIATE COMMISSION ASSOCIATE-C PROCEDURE: ABDOMEN LIMITED 06/08/2025 REASON FOR EXAM: [...] seen in the right kidney Reading Location: [facility] CC: LONG Corral; Dr. David Fink MD ~ Telehealth Coordinator: Signed [facility]06-20-2025 Discharge summary [facility] Medical Records Department [address] [place] [address] Emergency Department Summary 05/04/25 MR#: [id number] Acct: [id number] Name: UZMA MCDONALD Rep #:[id number] : 1970 54 From: Radha ALEX [...] none since. No melenahematochezia. No urinary symptoms. [facility] Medical History (Updated 05/04/25 @ 22:12 by [...] 5.9 L Lymph % (Auto) 71.4 H [place] % (Auto) 11.9 H Eos % (Auto) 3.6 Baso % (Auto) 2.4 H Absolute Neuts (auto) 0.1 L Absolute Lymphs (auto) 0.60 L Nucleated RBC % 4.8 Differential Comment SCANNED Diff Path Review COMMISSION ASSOCIATE Platelet Estimate MKD DEC PT Cancelled 15.0 [...] Clarity Cloudy Urine pH 6.0 Ur Specific [place] 1.015 Urine Protein 100 H Urine Glucose [...] IMPRESSION: No acute cardiopulmonary process. Reading Location: [facility] History & Record Review Discussion w/independent historian: [...] 5.9 L Lymph % (Auto) 71.4 H [place] % (Auto) 11.9 H Eos % (Auto) 3.6 Baso % (Auto) 2.4 H Absolute Neuts (auto) 0.1 L Absolute Lymphs (auto) 0.60 L Nucleated RBC % 4.8 Differential Comment SCANNED Diff Path Review COMMISSION ASSOCIATE Platelet Estimate MKD DEC PT Cancelled 15.0 [...] Clarity Cloudy Urine pH 6.0 Ur Specific [place] 1.015 Urine Protein 100 H Urine Glucose [...] IMPRESSION: No acute cardiopulmonary process. Reading Location: [facility] Treatment and Re-Evaluation :: I have [...] for admission or worsening symptoms. Print Language: Bolivian Disposition Disposition: Home, Self Care What to do if you have Problems For any increased pain, shortness of breath, bleeding, nausea or vomiting, chestpain, or any unexpected problems, contact your Primary Care Provider. Call [facility] ([phone]) or report tothe closest Emergency Room. Call 911 if necessary. 05/04/252214 Cosigner Signature (if applicable): 05/04/252216 CC: Dr. David Fink MD ~ Signed [facility]06-20-2025 Radiology Diagnostic study note [facility] Imaging Services [address] [place] [address] [id number] Chest PA and Lateral MR#: [id number] Acct: [id number] Name: UZMA MCDONALD Rep #: [id number] : 1970 F 54 From: Sandi Loza MD PCP: Dr. David Fink MD Status: REG E R Study:Chest PA and Lateral Date of Exam: 05/04/25 Exam# [id number] Ordering Dr: Radha Sahu EXAM: XR Chest, [...] IMPRESSION: No acute cardiopulmonary process. Reading Location: [facility] CC: Dr. David Fink MD; ISAI Payan ~ Telehealth Coordinator: Signed [facility]06-20-2025 Discharge summary Author Radha Norman [facility] Note Date/Time May 04, 2025 10:1 7pm [facility] Medical Records Department [address] [place] [address] Emergency Department Summary 05/04/25 MR#: [id number] Acct: [id number] Name: UZMA MCDONALD Rep #:[id number] : 1970 54 From: Radha ALEX [...] <ISAI Payan - Last Filed: 05/04/25 22:15> [facility] Medical History (Updated 05/04/25 @ 22:12 by [...] Oxygen Delivery Method Room Air Room Air [facility] <ISAI Payan - Last Filed: 05/04/25 22:15> [facility] Narrative Medical decision making narrative: 54-year-old female [...] 5.9 L Lymph % (Auto) 71.4 H [place] % (Auto) 11.9 H Eos % (Auto) 3.6 Baso % (Auto) 2.4 H Absolute Neuts (auto) 0.1 L Absolute Lymphs (auto) 0.60 L Nucleated RBC % 4.8 Differential Comment SCANNED Diff Path Review COMMISSION ASSOCIATE Platelet Estimate MKD DEC PT Cancelled 15.0 [...] Clarity Cloudy Urine pH 6.0 Ur Specific [place] 1.015 Urine Protein 100 H Urine Glucose [...] IMPRESSION: No acute cardiopulmonary process. Reading Location: [facility] <Dr. Girish Mcgarry, DO - Last Filed: [...] 5.9 L Lymph % (Auto) 71.4 H [place] % (Auto) 11.9 H Eos % (Auto) 3.6 Baso % (Auto) 2.4 H Absolute Neuts (auto) 0.1 L Absolute Lymphs (auto) 0.60 L Nucleated RBC % 4.8 Differential Comment SCANNED Diff Path Review COMMISSION ASSOCIATE Platelet Estimate MKD DEC PT Cancelled 15.0 [...] Clarity Cloudy Urine pH 6.0 Ur Specific [place] 1.015 Urine Protein 100 H Urine Glucose [...] IMPRESSION: No acute cardiopulmonary process. Reading Location: [facility] Treatment and Re-Evaluation :: I have personally [...] for admission or worsening symptoms. Print Language: Bolivian Disposition Disposition: Home, Self Care What to do if you have Problems For any increased pain, shortness of breath, bleeding, nausea or vomiting, chestpain, or any unexpected problems, contact your Primary Care Provider. Call [facility] ([phone]) or report to the closest Emergency Room. Call 911 if necessary. 05/04/252214 <Electronically signed by Radha ALEX> Cosigner Signature (if applicable): 05/04/252216 <Electronically signed by Girish Mcgarry DO> CC: Dr. David Fink MD ~ Signed [facility] Work Phone: 1(920) 435-971906-14-2025 Discharge summary [facility] Medical Records Department [address] [place] [address] Emergency Department Summary 04/28/25 MR#: [id number] Acct: [id number] Name: UZMA MCDONALD Rep #:[id number] : 1970 54 From: Girish Hathaway [...] showed no malignant cells. Was seen at [facility] sarcoma clinic by Dr. Cunningham in [...] has no abdominal pain. Nolower extremity swelling. [facility] Medical History Encounter for education Cancer Back [...] 81.3 H Lymph % (Auto) 17.3 L [place] % (Auto) 0.5 Eos % (Auto) 0.2 [...] Sl. Cloudy Urine pH 7.0 Ur Specific [place] 1.010 Urine Protein 100 H Urine Glucose [...] CHANGE SINCE THE PRIOR EXAM. Reading Location: [facility] Discharge Plan Triage Chief Complaint: Fever [...] MD [Primary Care Provider] - Print Language: Bolivian What to do if you have Problems For any increased pain, shortness of breath, bleeding, nausea or vomiting, chestpain, or any unexpected problems, contact your Primary Care Provider. Call [facility] ([phone]) or report tothe closest Emergency Room. Call 911 if necessary. 04/28/25 4707 Cosigner Signature (if applicable): CC: Dr. David Fink MD ~ Signed [facility]06-14-2025 Radiology Diagnostic study note [facility] Imaging Services [address] [facility] [place], [place] [address] Chest PA and Lateral MR#: [id number] Acct: [id number] Name: UZMA MCDONALD Rep #: [id number] : 1970 F 54 From: Lisette Mcdowell MD PCP: Dr. David Fink MD Status: PRE E R Study:Chest PA and Lateral Date of Exam: 04/28/25 Exam# [id number] Ordering Dr: Provider ,Ed P. PROCEDURE: CHEST [...] CHANGE SINCE THE PRIOR EXAM. Reading Location: [id number] CC: Dr. David Fink MD; ED PHYSICIAN PROVIDER ~ Telehealth Coordinator: Signed [facility]06-14-2025 Discharge summary Author Girish Mcgarry [facility] Note Date/Time April 28, 2025 11:3 7pm [facility] Medical Records Department [address] [place] [address] Emergency Department Summary 04/28/25 MR#: [id number] Acct: [id number] Name: UZMA MCDONALD Rep #:[id number] : 1970 54 From: Girish Hathaway [...] showed no malignant cells. Was seen at [facility] sarcoma clinic by Dr. Cunningham in [...] no abdominal pain. No lower extremity swelling. [facility] Medical History Encounter for education Cancer Back [...] 81.3 H Lymph % (Auto) 17.3 L [place] % (Auto) 0.5 Eos % (Auto) 0.2 [...] Sl. Cloudy Urine pH 7.0 Ur Specific [place] 1.010 Urine Protein 100 H Urine Glucose [...] CHANGE SINCE THE PRIOR EXAM. Reading Location: [id number] Discharge Plan Triage Chief Complaint: Fever ED [...] MD [Primary Care Provider] - Print Language: Bolivian What to do if you have Problems For any increased pain, shortness of breath, bleeding, nausea or vomiting, chestpain, or any unexpected problems, contact your Primary Care Provider. Call [facility] ([phone]) or report to the closest Emergency Room. Call 911 if necessary. 04/28/25 5072 <Electronically signed by Girish Mcgarry DO> Cosigner Signature (if applicable): CC: Dr. David Fink MD ~ Signed [facility] Work Phone: 1(626) 459-444106-12-2025 [facility] [address] 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 The patient was seen in [facility] emergency room January 08, 2025 with [...] activity and tumor cell necrosis. IHC at [facility] positive for SMA, negative for desmin, STAT6, pancytokeratin, S100 and CD34. Additional IHC done at [facility] showed negative Desmin, negative Caldesmon, [...] omentectomy. * Docetaxel gemcitabine April 19, 2025 [facility] Medical History Encounter for education [...] no focal motor deficits Coordination / Balance: yjksku-fd-muqy test normal Speech: speech normal Gait (Neuro): [...] showed no malignant cells. Was seen at [facility] sarcoma clinic by Dr. Cunningham in [...] discussed with patient . Imani Persaud MD Core Drilling Supervisor, [facility] Divisions of Medical Oncology & Hematology Department of Internal Medicine [place] [address] This note was generated using a voice [...] Cosigner Signature: Date (if applicable) CC: ~ [facility]06-12-2025 Progress note Author Imani Persaud [facility] Note Date/Time April 26, 2025 9:37 am [facility] [place] [address] 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 The patient was seen in [facility] emergency room January 08, 2025 with [...] activity and tumor cell necrosis. IHC at [facility] positive for SMA, negative for desmin, STAT6, pancytokeratin, S100 and CD34. Additional IHC done at [facility] showed negative Desmin, negative Caldesmon, [...] omentectomy. * Docetaxel gemcitabine April 19, 2025 [facility] Medical History Encounter for education [...] no focal motor deficits Coordination / Balance: cyhvse-lz-pjew test normal Speech: speech normal Gait (Neuro): [...] showed no malignant cells. Was seen at [facility] sarcoma clinic by Dr. Cunningham in [...] discussed with patient . Imani Persaud MD Core Drilling Supervisor, [facility] Divisions of Medical Oncology & Hematology Department of Internal Medicine [place] [address] This note was generated using a voice [...] Cosigner Signature: Date (if applicable) CC: ~ [facility] Work Phone: 1(245) 228-833306-05-2025 [facility] [place] [address] OFFICE VISIT Date of Service: 04/19/25905 MR#: [id number] Acct: [id number] Name: UZMA MCDONALD Rep #: [id number] : 1970 From: Imani fair MD Age/Sex: 54/F Location: [facility] Status: Signed HPI Subjective Date of Service 04/19/25 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 The patient was seen in [facility] emergency room January 08, 2025 with [...] activity and tumor cell necrosis. IHC at [facility] positive for SMA, negative for desmin, STAT6, pancytokeratin, S100 and CD34. Additional IHC done at [facility] showed negative Desmin, negative Caldesmon, [...] omentectomy. * Docetaxel gemcitabine April 19, 2025 [facility] Medical History Encounter for education [...] no focal motor deficits Coordination / Balance: htdqtn-jw-ytsb test normal Speech: speech normal Gait (Neuro): [...] showed no malignant cells. Was seen at [facility] sarcoma clinic by Dr. Cunningham in [...] discussed with patient . Imani Persaud MD Core Drilling Supervisor, [facility] Divisions of Medical Oncology & Hematology Department of Internal Medicine [place] [address] This note was generated using a voice recognition system software. Although itwas reviewed by the author prior to finalization, it may still contain incorrectwords, spelling, and punctuation that were not noted when reviewing prior to saving. If a clinically significant typo or inaccurately typed phrase is noted, please notify the author. 04/19/25 0941 karen VALDEZ> Date _ Imani Persaud MD 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 The patient was seen in [facility] emergency room January 08, 2025 with [...] activity and tumor cell necrosis. IHC at [facility] positive for SMA, negative for desmin, STAT6, pancytokeratin, S100 and CD34. Additional IHC done at [facility] showed negative Desmin, negative Caldesmon, [...] by way of spouse and adult children. [facility] Medical History (Updated 04/04/25 @ 15:35 by Delmis Corral COMMISSION ASSOCIATE, COMMISSION ASSOCIATE-C) Encounter for education Cancer Back pain Shortness [...] showed no malignant cells. Was seen at [facility] sarcoma clinic by Dr. Cunningham in [...] the past year?: No 04/04/25 1537 h COMMISSION ASSOCIATE COMMISSION ASSOCIATE-C> Date _ Delmis Corral COMMISSION ASSOCIATE COMMISSION ASSOCIATE-C Cosigner Signature: Date (if applicable) CC: ~ [facility]05-21-2025 Progress note Author Delmis Corral [facility] Note Date/Time April 04, 2025 3:37p m [facility] [address] 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 The patient was seen in [facility] emergency room January 08, 2025 with [...] activity and tumor cell necrosis. IHC at [facility] positive for SMA, negative for desmin, STAT6, pancytokeratin, S100 and CD34. Additional IHC done at [facility] showed negative Desmin, negative Caldesmon, [...] by way of spouse and adult children. [facility] Medical History (Updated 04/04/25 @ 15:35 by Delmis Corral NP, COMMISSION ASSOCIATE-C) Encounter for education Cancer Back pain Shortness [...] showed no malignant cells. Was seen at [facility] sarcoma clinic by Dr. Cunningham in [...] 1537 <Electronically signed by Delmis king NP COMMISSION ASSOCIATE-C> Date _ Delmis Corral NP COMMISSION ASSOCIATE-C Cosigner Signature: Date (if applicable) CC: ~ [facility] [employer] [facility] Work Phone: 1(527) 677-709305-19-2025 Consult note [facility] Medical Records Department [address] [place] [address] Anesthesia Postop Eval II 04/02/25 1305 MR#: [id number] Acct: [id number] Name: UZMA MCDONALD Rep #:[id number] 6 : 1970 54 From: Ck Cotto MD PCP: Dr. David Fink MD Status:REG S DC Y Race: C Location: [place] [address] Anesthesia Postop Eval I Sum Postop Eval Completion status Anesthesia document: Postop Eval 1 completed: Yes Anesthesia Postop Eval I Summary Anesthesia Postop Eval I Summary: Anesthesia Postop Eval I: Assessment Summary Airway patent Yes 04/02/25 12:06 SAFETY DEPOSIT BOXES CUSTODIAN.HBARR Spontaneous unlabored Yes 04/02/25 12:06 SAFETY DEPOSIT BOXES CUSTODIAN.HBARR respirations Mental status Awake 04/02/25 12:06 SAFETY DEPOSIT BOXES CUSTODIAN.HBARR nausea No 04/02/25 12:06 SAFETY DEPOSIT BOXES CUSTODIAN.HBARR Vomiting No 04/02/25 12:06 SAFETY DEPOSIT BOXES CUSTODIAN.HBARR Anesthesia Postop Eval I: Fluid Summary Crystalloid volume administer 500 04/02/25 12:06 SAFETY DEPOSIT BOXES CUSTODIAN.HBARR (ml) Colloids volume administered ( ml) Blood Product volume administered (ml) Total IV fluid infused 500 04/02/25 12:06 SAFETY DEPOSIT BOXES CUSTODIAN.HBARR Anesthesia Postop Eval I: Summary Notes Anesthesia Complication No 04/02/25 12:06 SAFETY DEPOSIT BOXES CUSTODIAN.HBARR Anesthesia Complication Comment: Post-operative progress note Anesthesia: Postop Eval II Evaluation Mental status: Awake Pain Level: 0 nausea: No Vomiting: No 04/02/25 1305 > Date _ Ck Cotto MD Cosigner Signature: Date CC: ~ Signed [facility]05-19-2025 Consult note Author Laquita Melendez [facility] Note Date/Time April 02, 2025 12:06 pm [facility] Medical Records Department [address] [place] [address] Anesthesia Postop Eval I 04/02/25 1153 MR#: [id number] Acct: [id number] Name: UZMA MCDONALD Rep #:[id number] 3 : 1970 54 From: Laquita Melendez CRNA PCP: Dr. David Fink MD Status:REG S DC Y Race: C Location: [place] [address] Anesthesia: Postop Eval I Current Vital Signs [...] CRNA Cosigner Signature: Date CC: ~ Signed [facility] Work Phone: 1(524) 889-916105-19-2025 History and physical note Author Theo Richard [facility] Note Date/Time April 02, 2025 11:20 am [facility] Medical Records Department [address] [place] [address] History & Physical Exam 04/02/25 1120 MR#: [id number] Acct: [id number] Name: UZMA MCDONALD Rep #:[id number] 5 : 1970 54 From: Theo villegas MD PCP: Dr. David Fink MD Status:REG S DC Location: [place] [address]1 History and Physical Date of Admission: 04/02/25 [...] willing to proceed Theo Richard MD Pager: [facility] [address] [place] [address], [address] [place] [phone] Office: I have examined the patient and the H&P has been reviewed. There are no clinicalchanges since date of exam. 04/02/25 1120 <Electronically signed by Theo Richard MD> Cosigner Signature (if applicable): CC: Dr. Theo Richard MD; Dr. David Fink MD~ Signed [facility] Work Phone: 1(747) 758-876605-19-2025 Radiology Diagnostic study note [facility] Imaging Services [address] [place], [place] [id number] CXR for Line Placement MR#: [id number] Acct: [id number] Name: UZMA MCODNALD Rep #: [id number] 6 : 1970 F 54 From: Jake Canales MD PCP: Dr. David Fink MD Status: REG S DC Study:CXR for Line Placement Date of Exam: 04/02/25 Exam# [id number] Ordering Dr: Theo Carmichael MD PROCEDURE: CXR [...] is upper limits of normal. Reading Location: [place] [address] CC: Dr. Theo Richard MD; Dr. David Fink MD ~ Telehealth Coordinator: Signed [facility]05-19-2025 Discharge summary [facility] Medical Records Department [address] [place] [address] Instructions for Home/Discharge Instructions 04/02/25 1218 MR#: [id number] Acct: [id number] Name: UZMA MCDONALD Rep #:[id number] 5 : 1970 54 From: Theo villegas MD PCP: Dr. Davdi Fink MD Status:REG S DC Discharge Instructions [...] to schedule 2 week follow up appointment. [phone] Test Results: Test results from this visit will be discussed in further detail at your follow- up appointment, if applicable. Discharge Plan Admission Attending Provider: Theo Richard Primary Care Provider: David Fink Instructions Print Language: Bolivian Discharge Orders/Prescriptions Prescriptions: No Action sertraline [Zoloft] [...] CC: Dr. David Fink MD ~ Signed [facility]05-19-2025 Procedure note [facility] Medical Records Department [address] [place] [address] Operative Report 04/02/25 1216 MR#: [id number] Acct: [id number] Name: UZMA MCDONALD Rep #:[id number] 4 : 1970 54 From: Theo villegas MD PCP: Dr. David Fink MD Status:REG S WI Location: [place] [address] Operative Report (Standard) Operative Information Date of Procedure: 04/02/25 Pre-Operative Diagnosis: Need for vascular access for chemotherapy Post-Operative Diagnosis: Same Surgery/Procedure Performed: Ultrasound and fluoroscopy guided right chest port placement utilizingright IJ bellperson: No Type of Anesthesia: Local MAC RN [...] apply: Implanted device Implanted device details: 8 [employer] Estimated Blood Loss: 5 Specimen collected: [...] Richard MD; Dr. David Fink MD~ Signed [facility]05-19-2025 Consult note [facility] Medical Records Department [address] [facility] [place] [address] Anesthesia Postop Eval I 04/02/25 1153 MR#: [id number] Acct: [id number] Name: UZMA MCDONALD Rep #:[id number] 3 : 1970 54 From: Laquita Melendez CRNA PCP: Dr. David Fink MD Status:REG S DC Y Race: C Location: [place] [address] Anesthesia: Postop Eval I Current Vital Signs [...] 04/02/25 1206 NA> Date _ Laquita Melendez SAFETY DEPOSIT BOXES CUSTODIAN Cosigner Signature: Date CC: ~ Signed [facility]05-19-2025 Consult note Author Ck [facility] Note Date/Time April 02, 2025 9:51a m [facility] Medical Records Department [address] [facility] [place] [address] Pre-Anesthesia Evaluation 04/02/25 0951 MR#: [id number] Acct: [id number] Name: UZMA MCDONALD Rep #:[id number] 2 : 1970 54 From: Ck Cotto MD PCP: Dr. David Fink MD Status:REG S DC Y Race: C Location: [facility] ASA Classification* ASA Classification ASA Classification: 3 [...] POSS LEFT Anesthesia History Anesthesia History - technical sales representatives: Anesthesia History - technical sales representatives Hx Hospitalization No 03/28/25 14:20 Any Problems [...] take am of surgery PONV PONV - technical sales representatives: PONV - technical sales representatives Female Yes 03/28/25 14:20 HX of Motion [...] 03/30/25 08:51 Respiratory Assessment Respiratory Assessment - technical sales representatives: Respiratory Tract Infection Hx - technical sales representatives Hx Respiratory Tract Infection No 03/28/25 14:20 STOP Sleep Apnea STOP Sleep Apnea - technical sales representatives: STOP Sleep Apnea - technical sales representatives Hx Hypertension Yes 03/28/25 14:20 Hx Sleep [...] Tobacco Use History Tobacco Use History - technical sales representatives: Tobacco Use History - technical sales representatives Tobacco Use Cigarettes 03/28/21 15:34 Smoking Status Current every day smoker 03/28/25 14:20 Hx Tobacco Use Yes 03/28/25 14:20 Years Smoking Packs Smoked per Day Smoking Cessation Date was within the last 15 years Hx Smoking Cessation Date Hx Smoking Cessation Counseling Hematologic Medial History Hematologic Hx - technical sales representatives: Hematologic Medical Hx - edge sander Hx of Blood Transfusion Yes 03/28/25 14:20 [...] 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 History - technical sales representatives: /Reproductive Hx- technical sales representatives Hx Now No 03/28/25 14:20 Gestational Age [...] and no additional complaints, except as documented. 04/02/2543 <Electronically signed by Ck Cotto MD > Date _ Ck Cotto MD Cosigner Signature: Date CC: ~ Signed [facility] Work Phone: [phone]) 205-142605-19-2025 History and physical note [facility] Medical Records Department [address] [place] [address] History & Physical Exam 04/02/25 1120 MR#: [id number] Acct: [id number] Name: UZMA MCDONALD Rep #:[id number] 5 : 1970 54 From: Theo villegas MD PCP: Dr. David Fink MD Status:REG S WI Location: [place] [address] History and Physical Date of Admission: 04/02/25 [...] willing to proceed Theo Richard MD Pager: [facility] [address] [place] [address], [address] [place] [phone] Office: I have examined the patient and the H&P has been reviewed. There are no clinicalchanges since date of exam. 04/02/25 1120 Cosigner Signature (if applicable): CC: Dr. Theo Richard MD; Dr. David Fink MD~ Signed [facility] Consult note [facility] Medical Records Department [address] [place], [place] [id number] Pre-Anesthesia Evaluation 04/02/25 0951 MR#: [id number] Acct: [id number] Name: UZMA MCDONALD Rep #:[id number] 2 : 1970 54 From: Ck Cotto MD PCP: Dr. David Fink MD Status:REG S DC Y Race: C Location: [facility] ASA Classification* ASA Classification ASA Classification: 3 [...] POSS LEFT Anesthesia History Anesthesia History - technical sales representatives: Anesthesia History - technical sales representatives Hx Hospitalization No 03/28/25 14:20 Any Problems [...] take am of surgery PONV PONV - technical sales representatives: PONV - technical sales representatives Female Yes 03/28/25 14:20 HX of Motion [...] 03/30/25 08:51 Respiratory Assessment Respiratory Assessment - technical sales representatives: Respiratory Tract Infection Hx - technical sales representatives Hx Respiratory Tract Infection No 03/28/25 14:20 STOP Sleep Apnea STOP Sleep Apnea - technical sales representatives: STOP Sleep Apnea - technical sales representatives Hx Hypertension Yes 03/28/25 14:20 Hx Sleep [...] Tobacco Use History Tobacco Use History - technical sales representatives: Tobacco Use History - technical sales representatives Tobacco Use Cigarettes 03/28/21 15:34 Smoking Status Current every day smoker 03/28/25 14:20 Hx Tobacco Use Yes 03/28/25 14:20 Years Smoking Packs Smoked per Day Smoking Cessation Date was within the last 15 years Hx Smoking Cessation Date Hx Smoking Cessation Counseling Hematologic Medial History Hematologic Hx - technical sales representatives: Hematologic Medical Hx - edge sander Hx of Blood Transfusion Yes 03/28/25 14:20 [...] 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 History - technical sales representatives: /Reproductive Hx- technical sales representatives Hx Now No 03/28/25 14:20 Gestational Age (in weeks): EDC: Hx Hx Para Hx Section SAB No 03/28/25 14:20 Active Medications Active Medications: Current Medications Generic Name Dose Route Start Last Admin Trade Name Freq PRN Reason Stop Dose Admin Cefazolin Sodium 2 gm/ Sodium 110 mls @ 150 mls/hr 04/02/25 11:30 Chloride IV 04/02/25 12:13 INTRAOP ONE [facility] Medical History Cancer Back pain Shortness of [...] 0951 > Date _ Ck Cotto MD [facility] Signature: Date CC: ~ Signed [facility]05-14-2025 Progress [facility] [address] [place] [id number] OFFICE VISIT Date of Service: 03/28/25 1532 MR#: [id number] Acct: [id number] Name: UZMA MCDONALD YURIDIA Rep #: [id number] : 1970 From: Imani fair MD Age/Sex: 54/F Location[place] [facility] Status: Signed HPI Subjective Date of Service 03/28/25 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 The patient was seen in [facility] emergency room January 08, 2025 with [...] activity and tumor cell necrosis. IHC at [facility] positive for SMA, negative for desmin, STAT6, pancytokeratin, S100 and CD34. Additional IHC done at [facility] showed negative Desmin, negative Caldesmon, [...] mm left UVJ/posterior urinary bladder wall calculus. [facility] Medical History (Updated 03/28/25 @ 16:14 by [...] showed no malignant cells. Was seen at [facility] sarcoma clinic by Dr. Cunningham in [...] Follow-up with cycle 1. Imani Persaud MD Core Drilling Supervisor, [facility] Divisions of Medical Oncology & Hematology Department of Internal Medicine [place] [address] This note was generated using a voice [...] applicable) CC: Dr. David Fink MD ~ [facility]05-14-2025 Progress note Author Imani Persaud [facility] Note Date/Time March 28, 2025 4:15p [place] [address] [place] [address] OFFICE VISIT Date of Service: 03/28/25 1532 MR#: [id number] Acct: [id number] Name: UZMA MCDONALD Rep #: [id number] : 1970 From: Imani fair MD Age/Sex: 54/F Location[place] [facility] Status: Signed HPI Subjective Date of Service 03/28/25 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 The patient was seen in [facility] emergency room January 08, 2025 with [...] activity and tumor cell necrosis. IHC at [facility] positive for SMA, negative for desmin, STAT6, pancytokeratin, S100 and CD34. Additional IHC done at [facility] showed negative Desmin, negative Caldesmon, [...] mm left UVJ/posterior urinary bladder wall calculus. [facility] Medical History (Updated 03/28/25 @ 16:14 by [...] showed no malignant cells. Was seen at [facility] sarcoma clinic by Dr. Cunningham in [...] Follow-up with cycle 1. Imani Persaud MD Core Drilling Supervisor, [facility] Divisions of Medical Oncology & Hematology Department of Internal Medicine [place] [address] This note was generated using a voice [...] applicable) CC: Dr. David Fink MD ~ [facility] Work Phone: 1(300) 171-456305-13-2025 NoteReceived is a request for second opinion consultation by Dr. Christopher Cunningham. [facility] slide review Preoperative Diagnosis: Multiple large fibroids, menorrhagia, chronic iron deficiency from chronic blood loss.[facility] HospitalComment on above: Performed By: #### SURGP #### [facility] (DEFAULT) [address] [place] [address] [id number] Radiology Diagnostic study note [facility] Imaging Services [address] [place] [id number] Chest, Abd, Pel w/Contrast MR#: [id number] Acct: [id number] Name: UZMA MCDONALD Rep #: [id number] 6 : 1970 F 54 From: Karen Estrada MD PCP: Dr. David Fink MD Status: MICHAELLE LYNN Study:CT Chest, Abd, Pel w/Contrast Date of E xam: 03/26/25 Exam# [id number] Ordering Dr: Imani Persaud MD PROCEDURE: CT [...] UVJ/posterior urinary bladder wall calculus. [facility] CC: Dr. Imani Persaud MD; Dr. David Fink MD ~ Telehealth Coordinator: Signed [facility]05-12-2025 Evaluation note* Diagnosis Onset Date Resolution Status [...] leiomyosarcoma of pelvis acute June 28 8:43am [facility] [employer] Work Phone: 1(326) 465-210905-12-2025 Evaluation note* Diagnosis Onset Date Resolution Status [...] leiomyosarcoma of pelvis acute July 12 8:44am [facility] [employer] Work Phone: [phone]) 197-365905-12-2025 NoteReceived is a request for second opinion consultation by Dr. Christopher Cunningham. [facility] slide review Clinical Information: Intra-abdominal and pelvic swelling, mass and lump, unspecified site - R19.00 [ICD-10-CM].[facility] HospitalComment on above:Performed By: #### SURGP #### [facility] (DEFAULT) [address] [id number] History of Present illness Narrative* Kim Craven [...] offered a hysterectomy for heavy menstrual periods [id number] but this was not covered by insurance. [...] left adnexal mass. 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 Called Dr Persaud (local hem/onc) sent to [...] History: Diagnosis Date Coronary artery disease of [place] heart with stable angina pectoris 07/27/2022 Heart [...] Resource Strain: Low Risk (01/26/2025) Received from [facility] Overall Financial Resource Strain (CARDIA) Difficulty of Paying Living Expenses: Not hard at all Food Insecurity: No Food Insecurity (01/26/2025) Received from [facility] Hunger Vital Sign Worried About Running Out of Food in the Last Year: Never true Ran Out of Food in the Last Year: Never true Transportation Needs: No Transportation Needs (01/26/2025) Received from [facility] PRAPARE - Transportation Lack of Transportation (Medical): No Lack of Transportation (Non-Medical): No Physical Activity: Inactive (01/26/2025) Received from [facility] Exercise Vital Sign Days of Exercise per Week: 0 days Minutes of Exercise per Session: 0 min Stress: Stress Concern Present (01/24/2023) Received from [facility] [employer] [place] of Occupational [facility] - Occupational Stress Questionnaire Feeling of Stress : Rather much Social Connections: Moderately Isolated (01/24/2023) Received from [facility] Social Connection and Isolation Panel [NHANES] Frequency of Communication with Friends and Family: Three times a week Frequency of Social Gatherings with Friends and Family: Never Attends Buddhism Services: Never Active Member of Clubs or Organizations: No Attends Club or Organization Meetings: Not on file Marital Status: Personal Safety: Not At Risk (01/26/2025) Received from [facility] Humiliation, Afraid, Rape, and Kick questionnaire Fear of Current or Ex-Partner: No Emotionally Abused: No Physically Abused: No Sexually Abused: No Housing Stability: Unknown (01/26/2025) Received from [facility] Housing Stability Vital Sign Unable to Pay [...] use 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 Children 35,33,29,28 years old - no cancer history Half brother - no cancer history Parents - no cancer history Maternal grandparents - no cancer history Parental grandparents - unknown as father is adopted Current Medications: Current Outpatient Medications Medication Sig atorvastatin 80 MG tablet Take 1 tablet by mouth daily. nystatin [id number] UNIT/GM Cream Apply topically Twice daily. Sertraline [...] in addendum. Thiscase was sent to the [facility] with the above diagnosis for parts A and B rendered by Dr. Pierce. Below is Dr. Pierce's comment. 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 Immunochemical stains performed by [employer] and submitted for review show that the tumor cells are positive for SMA and negative for desmin, STAT6, pancytokeratin, S100 and CD34. Immunochemical stains were performed at the [facility] with the following results: - [...] [facility] and [facility] ([facility], 02/08/25) - We recommend local provider [...] Patient to continue to follow up with patient accounts manager onc, local oncology, cardiology, and primary care [...] 2021 for multiple severe episodes of bleeding ([facility], Dr. May Saucedo); pathology demonstrated multiple [...] (tumor #2), left oophorectomy, omentectomy (Dr. Grady, [place], [place]). 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 Tumor #2 was fragmented. On exam, she has no abdominal distention. Respirations are clear and unlabored. I [facility] at [facility] to [facility] her initial [facility], from [facility], 05/28/2022 as well as the Ex lap, from [facility], 02/08/2025. I also recommended NGS testing ([facility] xT, [employer]), including HRD status on her resection [...] slides for Pathology review ([facility]): [facility], from [facility], 05/28/2022 Ex lap, from [facility], 02/08/2025 documented in [facility] Instructions* Patient Instructions* Kim Dela Cruz RN - 03/21/2025 1:00 PM EDT Starting on May 14, 2025, our clinic will be moving to the [facility] at [address] [place] [address], 4th floor. You may visit [email or web address] for additional information and driving directions. Garage and teaching fellow parking are available. Feel free to call our office with any questions. The [facility] On[facility] Dr. Christopher Cunningham, Dr. Mateo Bear, Dr. Davide Davis, and Dr. Usha Mueller PA-C, Leo Pettit RN, RN, Júnior Minor, RN, Era Caraballo, RAMONE, Shawna Dela Cruz RN [address] [place] [address] Respiratory Services Manager: Jazmine MCELROY [phone] Patient Care Sales Program Coordinator RN: Pancho Urias [phone] + Susy Estrella [phone] Please allow 10-14 business days for the [...] please call [facility] pre-certification line at [phone] to obtain that information. We know your [...] General Line . documented in [facility] encounter[facility]04-[facility]-2025 Evaluation note * Diagnosis Onset Date Resolution [...] of pelvis acute May 10, 2025 9:09am [facility] Work Phone: 1(774) 747-591804-14-2025 Evaluation note* Diagnosis Onset Date Resolution Status [...] of pelvis acute May 31, 2025 9:03am [facility] Work Phone: 1(785) 595-485504-14-2025 Evaluation note* Diagnosis Onset Date Resolution Status [...] transaminase measurement noneactive June 07, 2025 8:48am [facility] Work Phone: 1(752) 418-418104-14-2025 Evaluation note* Diagnosis Onset Date Resolution Status [...] transaminase measurement noneactive June 07, 2025 8:48am [facility] Work Phone: 1(181) 913-518204-14-2025 Evaluation note* Diagnosis Onset Date Resolution Status [...] of pelvis acute June 14, 2025 8:58am [facility] [employer] Work Phone: 1(162) 703-826604-04-2025 Telephone encounter Note* Telephone Encounter - Darvin Grady MD - 02/16/2025 11:13 AM EDT Pt called with path, to see Med Onc . Rec chemo. To see after chemo to discuss mcc surveillance [facility] Work Phone: 1(679) 603-973504-04-2025 Miscellaneous Notes* Telephone Encounter - Darvin Grady MD - 02/16/2025 11:13 AM EDT Pt called with path, to see Med Onc . Rec chemo. To see after chemo to discuss terminal gauger supervisor surveillance documented in this encounterSumma [id number] Telephone encounter Note* Telephone Encounter - Daquan Boyce - 02/15/2025 11:06 AM EDT Faxed to Dr. Persaud at [phone] via [employer]. Confirmation scanned within media [facility] [id number] Telephone encounter Note* Telephone Encounter - Daquan Boyce - 02/15/2025 11:06 AM EDT ----- Message from Darvin Grady MD sent at 02/14/2025 3:41 PM EDT ----- Plz fax to Dr Lopez at [facility] ----- Message ----- From: [employer] Valerie Kapoor Sent: 01/31/2025 1:18 PM EDT To: Darvin Grady MD [facility] [id number] Miscellaneous Notes* Telephone Encounter - Daquan Boyce - 02/15/2025 11:06 AM EDT Faxed to Dr. Persaud at [phone] via [employer]. Confirmation scanned within media * Telephone Encounter - Daquan Boyce - 02/15/2025 11:06 AM EDT ----- Message from Darvin Grady MD sent at 02/14/2025 3:41 PM EDT ----- Plz fax to Dr Lopez at [facility] ----- Message ----- From: [employer] Valerie Kapoor Sent: 01/31/2025 1:18 PM EDT To: Darvin Grady MD documented in this [place] [id number] Telephone encounter Note* Telephone Encounter - SREEDHAR Klein CNP - 02/14/2025 3:[address] Grady request, Called Dr Persaud's office at [facility] and provided recommendation for gemzar/taxotere for leiomyosarcoma. Dr Grady requested they send patient back to see him after chemo is completed. He does not need to see her before then. Called patient and informed her ofsame. She verbalized understanding and agreement with plan. 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 Dr Grady requested they send patient back to see him after chemo is completed. He does not need to see her before then. Called patient and informed her ofsame. She verbalized understanding and agreement with plan. documented in this [place] [id number] History of Present illness Narrative* SREEDHAR Klein [...] in addendum. Thiscase was sent to the [facility] with the above diagnosis for parts A and B rendered by Dr. Pierce. Below is Dr. Pierce's comment. 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 Immunochemical stains performed by [employer] and submitted for review show that the tumor cells are positive for SMA and negative for desmin, STAT6, pancytokeratin, S100 and CD34. Immunochemical stains were performed at the [facility] with the following results: - [...] pt would like to get chemo at [facility] center near her house - Discussed some [...] care as described above. documented in this [facility]04[facility]02[facility]25 Telephone encounter Note* Telephone Encounter - Darvin Grady MD - 02/14/2025 10:35 AM EDT [facility] Phone: 1(351) 345-667604-02-2025 Miscellaneous Notes* Telephone Encounter - Darvin Grady MD - 02/14/2025 10:35 AM EDT Mail box full documented in this [facility]03-15-2025 NoteSinus rhythm Low voltage, precordial leads Poor R wave progression Electronically Signed On 01-27-2025 11:41:44 EDT by [facility] 01-27-2025 NoteSinus rhythm Low voltage, precordial leads Poor R wave progression Electronically Signed On 01-27-2025 11:41:44 EDT by [facility] 01-27-2025 NoteIMPRESSION: Sinus rhythm Low voltage, precordial leads Poor R wave progression Electronically Signed On 01-27-2025 11:41:44 EDT by [facility]03-15-2025 NoteGyn ONC Discharge Summary Patient Name: Uzma [...] Your Medications These medications were sent to [facility] [address] [place] [address] Hours: Wednesday to Wednesday 10 am to [...] DO 01/27/2025, 9:51 [facility] [id number] Hospital course Narrative* Reyna Mcigll DO - 01/27/2025 9:50 AM EDT Images from the original note were not included. 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 CLIN APPLICATION SPECIALIST Progress Note Please page the [facility] CLIN APPLICATION SPECIALIST ONC Call RES group via Secure Chat [...] QTC Interval 01/26/2025 418 ms Final P Colrain 01/26/2025 53 degrees Final QRS [place] 01/26/2025 56 degrees Final T Wave [place] 01/26/2025 53 degrees Final DE Interval 01/26/2025 185 ms Final Auto WBC [...] will discuss with attending HTN Hx of MT -On Lopressor and cozaar -On Plavix and bASA at home Principal Problem: Pelvic mass Please page the [facility] CLIN APPLICATION SPECIALIST ONC Call RES group via Secure Chat [...] answered. Sumaya Marroquin MD documented in this [facility]03-15-2025 Plan of care note* Care Plan - Veda Hickman RN - 01/27/2025 5:04 AM EDT Problem: Pain - Adult Goal: Verbalizes/displays adequate comfort level or baseline comfort level Outcome: Progressing Problem: Safety - Adult Goal: Free from fall injury Outcome: Progressing Problem: Discharge Planning Goal: Discharge to home or other facility with appropriate resources Outcome: Progressing [facility] [id number] Miscellaneous Notes* Care Plan - Veda Hickman [...] resected. Hemostasis was with several small 3-0 Pfekcjiuscnf-iu-rhkiw's in the bladder peritoneum Bovie cautery as [...] 01/26/25 0928 Routine Description: LEFT OVARY Staff: Farm Equipment Service Technician: Dora Castro RN Scrub Person: Daysi Escobar RN [place] to Circ: Sabrina Philip RN Findings: Leiomyosarcoma [...] receiving Vancomycin or flouroquinolone) documented in this [facility]03[facility]14[facility]2025 Plan of care note* Care Plan - Jenny Torres RN - 01/26/2025 5:49 PM EDT Problem: Pain - Adult Goal: Verbalizes/displays adequate comfort level or baseline comfort level Outcome: Progressing Problem: Safety - Adult Goal: Free from fall injury Outcome: Progressing Problem: Discharge Planning Goal: Discharge to home or other facility with appropriate resources Outcome: Progressing [facility] [id number] Nurse Note* Jenny Torres RN - 01/26/2025 4:40 PM EDT Meds to Beds delivered to patient. Pt declined oxycodone prescription and sent back with Meds to Beds. [facility] [id number] Nurse Note* Jenny Torres RN - 01/26/2025 4:40 PM EDT Meds to Beds delivered to patient. Pt declined oxycodone prescription and sent back with Meds to Beds. * Roxy Jimenez RN - 01/26/2025 10:34 AM EDT Patient family/visitor updated by RN at this time. documented in this [facility]03-14-2025 Nurse Note* Perioperative Nursing Note - Addy Donald RN - 01/26/2025 11:31 AM EDT Report given to Jenny PACK [facility] [id number] Nurse Note* Perioperative Nursing Note - Addy Donald RN - 01/26/2025 11:26 AM EDT Faxed report sheet to [facility] [id number] Nurse Note* Roxy Jimenez RN - 01/26/2025 10:34 AM EDT Patient family/visitor updated by RN at this time. [facility] [id number] Hospital Discharge instructions* Discharge Instructions* Wendie Thompson DO - 01/26/2025 10:34 AM EDT Please follow your post operative care instructions given to you by your Fishing Game Warden Oncologist's office at your pre operative visit. Please call the office with questions or concerns and be sure to follow up at your scheduled post operative visit. * Attachments The following attachments cannot be sent through Care Everywhere. * Exploratory Laparotomy Discharge Instructions (Bolivian) documented in this [facility]03-14-2025 NotePatient: Uzma Mcdonald Procedure Summary Date: 01/26/25 Room / Location: [place] [address] Operating Room Anesthesia Start: 822 Anesthesia Stop: [...] Allowed opportunity for questions and acknowledgement of understanding.[facility] [id number] NotePatient: Uzma Freetaconnie Procedure Summary Date: 01/26/25 Room / Location: [address] Operating Room Anesthesia Start: 822 Anesthesia [...] discharged once all PACU criteria has been met.[facility] [id number] NoteAirway Date/Time: 01/26/2025 8:29 AM Urgency: scheduled Airway not difficult General Information and Staff Patient location during procedure: Procedural Resident/SAFETY DEPOSIT BOXES CUSTODIAN: Skip Whittaker CRNA Performed: SRNA and SAFETY DEPOSIT BOXES CUSTODIAN Indications and Patient Condition Indications for airway [...] approach: 1 Number of other approaches attempted: [address] [place], [place] [address]03-14-2025 Note Peripheral Block Time Out: 01/26/2025 8:35 AM Patient location during procedure: Procedural Start time: 01/26/2025 8:35 AM End time: 01/26/2025 8:35 AM Reason for block: at surgeon's request and post-op pain management Staffing Performed: NABEEL Resident/SAFETY DEPOSIT BOXES CUSTODIAN: SREEDHAR Puri CRNA Preanesthetic Checklist Completed: patient [...] supine Prep: ChloraPrep Patient monitoring: heart rate, contact lens blocker and cutter, continuous pulse ox and continuous capnometry O2: [...] plane. and Local anesthetic injected without difficultyMedications fmgWXGGTarixf-locfkpgsohv-xwtniheuabt (TAP) syringe - Injection 60 mL - 01/26/2025 8:35:00 [facility] [id number] Procedure note* Op Note - Darvin Grady [...] resected. Hemostasis was with several small 3-0 Vfewwathejpn-vx-hysrq's in the bladder peritoneum Bovie cautery as [...] cover room in stable condition by anesthesia [facility] [id number] Procedure note* Brief Op Note - Darvin Grady MD - 01/26/2025 8:22 AM EDT Date: 01/26/2025 Location: [facility] OR Name: Uzma Mcdonald, : 1970, Diagnosis [...] 01/26/25 0928 Routine Description: LEFT OVARY Staff: Farm Equipment Service Technician: Dora Castro RN Scrub Person: Daysi Escobar RN [place] to Circ: Sabrina Philip RN Findings: Leiomyosarcoma [...] (two hours if receiving Vancomycin or flouroquinolone) [facility] [id number] NotePatient: Uzma Freetage Procedure Information Date/Time: 01/26/25829 Procedures: LAPAROTOMY, EXPLORATORY (Abdomen) - 1 HOUR GENERAL TAP BLOCK LEFT LAPAROSCOPIC, SALPINGO-OOPHORECTOMY (Left: Abdomen) POSSIBLE LYMPHADENECTOMY, PARA-AORTIC OR PELVIC, LIMITED, FOR STAGING (Abdomen) LAPAROSCOPY, WITH BIOPSY (Abdomen) Location: [facility] OR [address] [place] [address] Operating Room Surgeons: Darvin Grady MD Relevant [...] voltage, precordial leads Equipment Requests: Additional Equipment [facility]03-[facility] Attending History and physical note* Darvin Grady MD - 01/26/2025 7:05 AM EDT H&P reviewed. The patient was examined and there are no changes to the H&P. Source Note - Darvin Grady MD - 01/17/2025 10:30 AM EST Images from the original note were not included. HPI: Uzma Mcdonald is a pleasant 54 y.o. female [facility]. [...] hysterectomy withRSO in the past. 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 Denies [...] Resource Strain: Low Risk (01/24/2023) Received from [facility] Overall Financial Resource Strain (CARDIA) Difficulty of Paying Living Expenses: Not very hard Food Insecurity: No Food Insecurity (01/24/2023) Received from [facility] Hunger Vital Sign Worried About Running Out of Food in the Last Year: Never true Ran Out of Food in the Last Year: Never true Transportation Needs: No Transportation Needs (01/24/2023) Received from [facility] PRAPARE - Transportation Lack of Transportation (Medical): No Lack of Transportation (Non-Medical): No Physical Activity: Insufficiently Active (01/24/2023) Received from [facility] Exercise Vital Sign Days of Exercise per Week: 2 days Minutes of Exercise per Session: 20 min Stress: Stress Concern Present (01/24/2023) Received from [facility] [place] of Occupational Health - Occupational Stress Questionnaire Feeling of Stress : Rather much Social Connections: Moderately Isolated (01/24/2023) Received from [facility] Social Connection and Isolation Panel [NHANES] Frequency of Communication with Friends and Family: Three times a week Frequency of Social Gatherings with Friends and Family: Never Attends Buddhism Services: Never Active Member of Clubs or Organizations: No Marital Status: Housing Stability: Low Risk (01/24/2023) Received from [facility] Housing Stability Vital Sign Unable [...] nursing note reviewed. Exam conducted with a manager of construction present. Constitutional: Appearance: She is obese. Cardiovascular: [...] on date of service as well as qqtr-ua-ohlv counseling with patient was 35 minutes Patient has been asked to stop her Plavix 5 days before surgery [facility] Phone: [phone] NoteH&P reviewed. The patient was examined and there are no changes to the H&P.[email or web address] [id number] History and physical note* Darvin Grady MD [...] hysterectomy withRSO in the past. 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 Denies [...] Resource Strain: Low Risk (01/24/2023) Received from [facility] Overall Financial Resource Strain (CARDIA) Difficulty of Paying Living Expenses: Not very hard Food Insecurity: No Food Insecurity (01/24/2023) Received from [facility] Hunger Vital Sign Worried About Running Out of Food in the Last Year: Never true Ran Out of Food in the Last Year: Never true Transportation Needs: No Transportation Needs (01/24/2023) Received from [facility] PRAPARE - Transportation Lack of Transportation (Medical): No Lack of Transportation (Non-Medical): No Physical Activity: Insufficiently Active (01/24/2023) Received from [facility] Exercise Vital Sign Days of Exercise per Week: 2 days Minutes of Exercise per Session: 20 min Stress: Stress Concern Present (01/24/2023) Received from [facility] [place] of Occupational Health - Occupational Stress Questionnaire Feeling of Stress : Rather much Social Connections: Moderately Isolated (01/24/2023) Received from [facility] Social Connection and Isolation Panel [NHANES] Frequency of Communication with Friends and Family: Three times a week Frequency of Social Gatherings with Friends and Family: Never Attends Buddhism Services: Never Active Member of Clubs or Organizations: No Marital Status: Housing Stability: Low Risk (01/24/2023) Received from [facility] Housing Stability Vital Sign Unable [...] nursing note reviewed. Exam conducted with a manager of construction present. Constitutional: Appearance: She is obese. Cardiovascular: [...] on date of service as well as hiue-mo-enkl counseling with patient was 35 minutes Patient has been asked to stop her Plavix 5 days before surgery documented in this [facility]03-07-2025 Telephone encounter Note* Telephone Encounter - Audelia Sams - 01/19/2025 11:38 AM EST PAT 01.23.2025 at 9:30 am by phone SX: 04.28.2025 at 8:30 am arrival at 6:30 am Post op 02.09.2025 at 11 am Folder and instructions given. [facility] [id number] Miscellaneous Notes* Telephone Encounter - Audelia Sams - 01/19/2025 11:38 AM EST PAT 01.23.2025 at 9:30 am by phone SX: 04.28.2025 at 8:30 am arrival at 6:30 am Post op 02.09.2025 at 11 am Folder and instructions given. documented in this [facility]03-05-2025 History of Present illness Narrative* Darvin [...] hysterectomy withRSO in the past. 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 Denies [...] Resource Strain: Low Risk (01/24/2023) Received from [facility] Overall Financial Resource Strain (CARDIA) Difficulty of Paying Living Expenses: Not very hard Food Insecurity: No Food Insecurity (01/24/2023) Received from [facility] Hunger Vital Sign Worried About Running Out of Food in the Last Year: Never true Ran Out of Food in the Last Year: Never true Transportation Needs: No Transportation Needs (01/24/2023) Received from [facility] PRAPARE - Transportation Lack of Transportation (Medical): No Lack of Transportation (Non-Medical): No Physical Activity: Insufficiently Active (01/24/2023) Received from [facility] Exercise Vital Sign Days of Exercise per Week: 2 days Minutes of Exercise per Session: 20 min Stress: Stress Concern Present (01/24/2023) Received from [facility] [place] of Occupational Health - Occupational Stress Questionnaire Feeling of Stress : Rather much Social Connections: Moderately Isolated (01/24/2023) Received from [facility] Social Connection and Isolation Panel [NHANES] Frequency of Communication with Friends and Family: Three times a week Frequency of Social Gatherings with Friends and Family: Never Attends Buddhism Services: Never Active Member of Clubs or Organizations: No Marital Status: Housing Stability: Low Risk (01/24/2023) Received from [facility] Housing Stability Vital Sign Unable [...] nursing note reviewed. Exam conducted with a manager of construction present. Constitutional: Appearance: She is obese. Cardiovascular: [...] on date of service as well as wdhs-ye-nolh counseling with patient was 35 minutes Patient has been asked to stop her Plavix 5 days before surgery * Susy Blake MA - 01/17/2025 10:30 AM EST Cow Puncher was offered to the patient for exam. Patient accepted, certified medical asst in room during exam documented in this [facility]03-05-2025 NoteHPI: Uzma Mcdonald is a pleasant 54 [...] with RSO in the past. 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 Denies [...] Resource Strain: Low Risk (01/24/2023) Received from [facility] Overall Financial Resource Strain (CARDIA) Difficulty of Paying Living Expenses: Not very hard Food Insecurity: No Food Insecurity (01/24/2023) Received from [facility] Hunger Vital Sign Worried About Running Out of Food in the Last Year: Never true Ran Out of Food in the Last Year: Never true Transportation Needs: No Transportation Needs (01/24/2023) Received from [facility] PRAPARE - Transportation Lack of Transportation (Medical): No Lack of Transportation (Non-Medical): No Physical Activity: Insufficiently Active (01/24/2023) Received from [facility] Exercise Vital Sign Days of Exercise per Week: 2 days Minutes of Exercise per Session: 20 min Stress: Stress Concern Present (01/24/2023) Received from [facility] [place] of Occupational Health - Occupational Stress Questionnaire Feeling of Stress : Rather much Social Connections: Moderately Isolated (01/24/2023) Received from [facility] Social Connection and Isolation Panel [NHANES] Frequency of Communication with Friends and Family: Three times a week Frequency of Social Gatherings with Friends and Family: Never Attends Buddhism Services: Never Active Member of Clubs or Organizations: No Marital Status: Housing Stability: Low Risk (01/24/2023) Received from [facility] Housing Stability Vital Sign Unable [...] nursing note reviewed. Exam conducted with a manager of construction present. Constitutional: Appearance: She is obese. Cardiovascular: Rate and Rhythm: Normal rate and regular rhythm. Pulmonary: Effort: Pulmonary effort is normal. Breath sounds: Normal breath sounds. Abdominal: General: Abdomen is flat. A surgical scar is present. Palpations: Abdomen is soft. There is mass. Tenderness: There is abdominal tenderness. Comments: (more content not included)...[facility]03-05-2025 Note HPI: Uzma Mcdonald is a [...] with RSO in the past. 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 Denies [...] Resource Strain: Low Risk (01/24/2023) Received from [facility] Overall Financial Resource Strain (CARDIA) Difficulty of Paying Living Expenses: Not very hard Food Insecurity: No Food Insecurity (01/24/2023) Received from [facility] Hunger Vital Sign Worried About Running Out of Food in the Last Year: Never true Ran Out of Food in the Last Year: Never true Transportation Needs: No Transportation Needs (01/24/2023) Received from [facility] PRAPARE - Transportation Lack of Transportation (Medical): No Lack of Transportation (Non-Medical): No Physical Activity: Insufficiently Active (01/24/2023) Received from [facility] Exercise Vital Sign Days of Exercise per Week: 2 days Minutes of Exercise per Session: 20 min Stress: Stress Concern Present (01/24/2023) Received from [facility] [place] of Occupational Health - Occupational Stress Questionnaire Feeling of Stress : Rather much Social Connections: Moderately Isolated (01/24/2023) Received from [facility] Social Connection and Isolation Panel [NHANES] Frequency of Communication with Friends and Family: Three times a week Frequency of Social Gatherings with Friends and Family: Never Attends Buddhism Services: Never Active Member of Clubs or Organizations: No Marital Status: Housing Stability: Low Risk (01/24/2023) Received from [facility] Housing Stability Vital Sign Unable [...] nursing note reviewed. Exam conducted with a manager of construction present. Constitutional: Appearance: She is obese. Cardiovascular: Rate and Rhythm: Normal rate and regular rhythm. Pulmonary: Effort: Pulmonary effort is normal. Breath sounds: Normal breath sounds. Abdominal: General: Abdomen is flat. A surgical scar is present. Palpations: Abdomen is soft. There is mass. Tenderness: There is abdominal tenderness. Comments: (more content not included)...[facility]02-28-2025 Radiology Diagnostic study note [facility] Imaging Services [address] [place], [place] [address] Transvaginal Non- MR#: [id number] Acct: [id number] Name: UZMA MCDONALD YURIDIA Rep #: [id number] : 1970 F 54 From: Jake Canales MD PCP: Dr. David Fink MD Status: REG C MELISSA Study:Transvaginal Non- Date of Exam: 01/12/25 Exam# [id number] Ordering Dr: Imani Persaud MD PROCEDURE: TRANSVAGINAL [...] process should be ruled out. Reading Location: [id number] CC: Dr. Imani Persaud MD; Dr. David Fink MD ~ Telehealth Coordinator: Signed [facility]02-26-2025 Evaluation note* Diagnosis Onset Date Resolution Status Admit Date Pelvic mass inactive December 12:54pm [facility] Work Phone: 1(633) 204-459502-26-2025 Evaluation note* Diagnosis Onset Date Resolution Status Admit Date Pelvic mass inactive December 12:54pm Primary leiomyosarcoma of pelvis acute February 26, 2025 10:59am Encounter for insertion of venous access port acute March 26 1:19pm Primary leiomyosarcoma of pelvis acute March 28, 2025 3 :30pm [facility] Work Phone: 1(942) 776-528702-26-2025 Evaluation note* Diagnosis Onset Date Resolution Status Admit Date Pelvic mass inactive December 12:54pm Primary leiomyosarcoma of pelvis acute February 26, 2025 10:59am Encounter for insertion of venous access port acute March 26 1:19pm Primary leiomyosarcoma of pelvis acute March 28, 2025 3 :30pm Encounter for education acute M 2024 1:47pm Primary leiomyosarcoma of pelvis acute April 04, 2025 1 :47pm [facility] [employer] [facility] Work Phone: 1(220) 295-980102-26-2025 Evaluation note* Diagnosis Onset Date Resolution Status [...] pelvis acute April 19, 2025 8 :09am [facility] [employer] [facility] Work Phone: 1(450) 443-189102-26-2025 Evaluation note* Diagnosis Onset Date Resolution Status [...] of pelvis acute April 26, 2025 8:12am [facility] Work Phone: 1(382) 633-272602-26-2025 Evaluation note* Diagnosis Onset Date Resolution Status [...] 2021 resolved April 18, 2025 1 0:44am [facility] Work Phone: 1(563) 638-499602-26-2025 Evaluation note* Diagnosis Onset Date Resolution Status [...] of pelvis acute May 03, 2025 10:20am [facility] Work Phone: 1(971) 308-699302-26-2025 Evaluation note* Diagnosis Onset Date Resolution Status [...] 10:20am Severe neutropenia acute April 152024 10:20am [facility] Work Phone: 1(704) 255-810602-26-2025 Evaluation note* Diagnosis Onset Date Resolution Status [...] of pelvis acute May 10, 2025 9:09am [facility] Work Phone: [phone]) [phone] Telephone encounter Note* Telephone Encounter - Nayana Steele MA - 12/25/2024 2:29 PM EST Patient given results and verbalized understanding of instructions given. Nayana Steele MA [facility]02-10-2025 Miscellaneous Notes* Telephone Encounter - [...] blood in the urine. documented in this encounterDunlap Memorial Hospital02-10-2025 Telephone encounter Note * Telephone Encounter - Chace Tobias PA - 12/25/2024 11:48 AM EST Please contact patient and let her know that urine culture revealed no UTI. She needs close follow-up with primary care doctor to ensure resolution of blood in the urine. [facility] Work Phone: [phone] 104-926102-09-2025 NoteHNO ID: [id number] Author: ISAÍAS RIBEIRO APRN.CLASSIFICATION OFFICER Service: ? Author Type: Nurse Practitioner Type: [...] CORONARY PLAT CHROMIUM BARE METAL STENT SYS [id number], 144 CM 06/26/2014 REMOVAL GALLBLADDER 2013 SUPRACERVICAL [...] cervical adenopathy. Skin: G (more content not included)...[facility]02-09-2025 History of Present illness Narrative* Isaías Ribeiro, SREEDHAR.[facility] - 12/24/2024 1:53 PM EST Subjective [...] CORONARY PLAT CHROMIUM BARE METAL STENT SYS [id number], 144 CM 06/26/2014 REMOVAL GALLBLADDER 2013 SUPRACERVICAL [...] of care. This note was generated using Binary Event [employer] software. It may contain errors in wording, punctuation, or spelling. Isaías Ribeiro APRN.JAIRO documented in this encounterDunlap Memorial Hospital11-25-2024 Telephone encounter Note * Telephone Encounter - Zoey Pineda MA - 10/09/2024 3:53 PM EST Pt reviewed message from PCP regarding mammogram results. PCP sent pt message to pt on 10/03/24, was reviewed by pt same day. Zoey Pineda MA [facility]11-25-2024 Miscellaneous Notes* Telephone Encounter - [...] continue with annual screenings. documented in this encounterDunlap Memorial Hospital11-19-2024 Telephone encounter Note * Telephone Encounter - Ann Zacarias RN - 10/03/2024 9:49 AM EST Called and left a voicemail for the Patient to call back and ask for a nurse to receive the providers message. Ann Zacarias RN [facility]11-19-2024 Telephone encounter Note* Telephone Encounter - Susy Smith APRN.CNP - 10/03/2024 8:15 AM EST Please let patient know her mammogram is negative. Patient should continue with annual screenings. [facility] Work Phone: [phone] History of Present illness Narrative* Elizabeth Elizondo [...] PATIENT PRESENTS WITH AN IMPLANTABLE OR ATTACHED WEB DEVELOPMENT DIRECTOR: No RADIOLOGY DEPARTMENT: Mammography PERIPHERAL IV DATA: Not applicable SIGNED BY: Pavithra Kilgoreo Brook September 29, 2024 1:54 PM documented in this encounterDunlap Memorial Hospital11-15-2024 NoteHNO ID: [id number] Author: ELIZABETH ELIZONDO Mammo Tech Service: ? Author Type: Modeling Teacher Type: Progress Notes Filed: 09/29/2024 13:54 Note [...] PATIENT PRESENTS WITH AN IMPLANTABLE OR ATTACHED WEB DEVELOPMENT DIRECTOR: No RADIOLOGY DEPARTMENT: Mammography PERIPHERAL IV DATA: Not applicable SIGNED BY: Chiqui Kilgore September 29, 2024 1:54 [facility] Telephone encounter Note* Telephone Encounter - Susy Smith APRN.CNP - 09/25/2024 2:22 PM EST Ordered [facility]11-11-2024 Miscellaneous Notes* Telephone Encounter - Susy Smith APRN.CNP - 09/25/2024 2:22 PM EST Ordered * Telephone Encounter - Elizabeth Elizondo Mammo Tech - 09/25/2024 1:40 PM EST Could we have a mammogram screening order STAT! Pt schedule today at 1450. Thanks a million documented in this encounterDunlap Memorial Hospital11-11-2024 Telephone encounter Note * Telephone Encounter - Elizabeth Elizondo Mammo Tech - 09/25/2024 1:40 PM EST Could we have a mammogram screening order STAT! Pt schedule today at 1450. Thanks a million [facility]09-18-2024 Telephone encounter Note* Telephone Encounter - Hazel Marshall LPN - 08/02/2024 7:57 PM EDT Patient notified.Hazel Marshall LPN [facility]09-18-2024 Miscellaneous Notes* Telephone Encounter - Hazel Marshall LPN - 08/02/2024 7:57 PM EDT Patient notified.Hazel Marshall LPN * Telephone Encounter - Isaías Ribeiro APRN.CNP - 08/02/2024 7:51 PM EDT Please inform patient that chest x-ray is negative. Continue plan of care as discussed during visit. documented in this encounterDunlap Memorial Hospital09-18-2024 Telephone encounter Note * Telephone Encounter - Isaías Ribeiro APRN.CNP - 08/02/2024 7:51 PM EDT Please inform patient that chest x-ray is negative. Continue plan of care as discussed during visit. [facility]09-18-2024 History of Present illness Narrative* [...] PATIENT PRESENTS WITH AN IMPLANTABLE OR ATTACHED WEB DEVELOPMENT DIRECTOR: No RADIOLOGY DEPARTMENT: General X-ray: Exam(s) Completed: Chest X-Ray PERIPHERAL IV DATA: Not applicable SIGNED BY: RT Sera(R) August 02, 2024 7:17 PM documented in this encounterDunlap Memorial Hospital09-18-2024 NoteHNO ID: [id number] Author: KESHIA MANRIQUEZ RT(Christal) Service: ? Author Type: Modeling Teacher Type: Progress Notes Filed: 08/02/2024 19:17 Note [...] PATIENT PRESENTS WITH AN IMPLANTABLE OR ATTACHED WEB DEVELOPMENT DIRECTOR: No RADIOLOGY DEPARTMENT: General X-ray: Exam(s) Completed: Chest X-Ray PERIPHERAL IV DATA: Not applicable SIGNED BY: RT Sera(R) August 02, 2024 7:17 [facility]09-18-2024 NoteHNO ID: [id number] Author: ISAÍAS RIBEIRO APRN.CLASSIFICATION OFFICER Service: ? Author Type: Nurse Practitioner Type: [...] lens implant PAST SURGICAL HISTORY OF 03/31/2021 BiontroniVaavud stent REBEL CORONARY PLAT CHROMIUM BARE METAL STENT SYS [id number], 144 CM 06/26/2014 REMOVAL GALLBLADDER 2013 SUPRACERVICAL [...] 2V FRONTAL/LAT 2. Bronchi (more content not included)...[facility]09-18-20[facility] History of Present illness Narrative* Isaías Ribeiro APRN.CLASSIFICATION OFFICER - 08/02/2024 6:55 PM EDT Subjective HPI [...] lens implant PAST SURGICAL HISTORY OF 03/31/2021 [employer] stent REBEL CORONARY PLAT CHROMIUM BARE METAL STENT SYS [id number], 144 CM 06/26/2014 REMOVAL GALLBLADDER 2013 SUPRACERVICAL [...] of care. This note was generated using [employer] Event [employer] software. It may contain errors in wording, punctuation, or spelling. Isaías Ribeiro APRN.JAIRO documented in this encounterDunlap Memorial Hospital06-04-2024 NoteHNO ID: [id number] Author: JUANA LINTON APRN.JAIRO Service: ? Author Type: Nurse Practitioner Type: Progress Notes Filed: 04/18/2024 13:22 Note Text: This note was created using PeerJ. Subjective Uzma Mcdonald is a 53 year [...] history is provided by the patient. No professor of languages was used. URI She complains of cough. [...] CORONARY PLAT CHROMIUM BARE METAL STENT SYS [id number], 144 CM 06/26/2014 REMOVAL GALLBLADDER 2013 SUPRACERVICAL [...] and behavioral problems. Objective (more content not included)...[facility]06-04[facility]20[facility] History of Present illness Narrative* Juana Linton APRN.CLASSIFICATION OFFICER - 04/18/2024 12:20 PM EDT This note [...] history is provided by the patient. No professor of languages was used. URI She complains of cough. [...] CORONARY PLAT CHROMIUM BARE METAL STENT SYS [id number], 144 CM 06/26/2014 REMOVAL GALLBLADDER 2012 SUPRACERVICAL [...] at time of exam. She declines visiting [address] for xray Will try to come [...] if symptoms persist or worsen. Juana Linton APRN.CLASSIFICATION OFFICER documented in this encounterDunlap Memorial Hospital05-09-2024 NoteHNO ID: [id number] Author: CINTHYA VAUGHAN APRN.CLASSIFICATION OFFICER Service: ? Author Type: Nurse Practitioner Type: [...] lens implant PAST SURGICAL HISTORY OF 03/31/2021 [employer] stent REBEL CORONARY PLAT CHROMIUM BARE METAL STENT SYS [id number], 144 CM 06/26/2014 REMOVAL GALLBLADDER 2013 SUPRACERVICAL [...] No erythema or rash. (more content not included)...[facility]05-09-2024 History of Present illness Narrative* Cinthya Vaughan APRN.[facility] - 03/23/2024 10:57 AM EDT Subjective [...] CORONARY PLAT CHROMIUM BARE METAL STENT SYS [id number], 144 CM 06/26/2014 REMOVAL GALLBLADDER 2013 SUPRACERVICAL [...] Discussed expected course of illness Cinthya Vaughan APRN.CLASSIFICATION OFFICER documented in this encounterDunlap Memorial Hospital05-09-2024 Instructions* Patient Instructions* Cinthya Vaughan APRN.CLASSIFICATION OFFICER - 03/23/2024 10:57 AM EDT ASSESSMENT/PLAN: 1. [...] days of proper treatment. documented in this encounterDunlap Memorial Hospital11-06-2023 Miscellaneous Notes* Letter - Coordinator, Mammography - 09/20/2023 2:45 PM EST September 21, 2023 PID: [id number] Uzma Mcdonald [address] [place] [address] Dear Ms. Mcdonald, We are pleased to [...] report will be kept on [facility] at [facility] as part of your permanent medical record and are available for your continuing care. Thank you for allowing us to help in meeting your health care needs. Sincerely, Dr. Velasquez Interpreting Radiologist [facility] (Normal over 40) documented in this encounterDunlap Memorial Hospital11-03-2023 History of Present illness Narrative* [...] 17, 2023 2:33 PM documented in this encounterDunlap Memorial Hospital10-10-2023 Miscellaneous Notes* Telephone Encounter - [...] new patient? Please call pt with reply. [phone] Thank you. documented in this encounterDunlap Memorial Hospital04-17-2023 History of Present illness Narrative* David Fink MD - 03/01/2023 2:25 PM EDT Patient presents with: Follow Up: Starting zoloft HPI: Patient presents today for office visit for follow up. PSYCH: Currently tolerating medications well: Yes . Side effects: No. Sleep issues, energy changes, appetite changes: hard to pattern hand right now right after starting medication tested [...] lens implant PAST SURGICAL HISTORY OF 03/31/2021 BioUX[employer] stent REBEL CORONARY PLAT CHROMIUM BARE METAL STENT SYS [id number], 144 CM 06/26/2014 REMOVAL GALLBLADDER 2013 SUPRACERVICAL [...] issues. David Fink MD documented in this encounterDunlap Memorial Hospital04-04-2023 History of Present illness Narrative* Hilda Morin APRN.CLASSIFICATION OFFICER - 02/16/2023 3:53 PM EDT Chief Complaint Patient presents with: Telemedicine I have communicated my name and active licensure. The patient's identity and physical location wereverified at the time of this visit. Either the patient or their legal self pay representative has been informed of the risks [...] agrees to the visit: Yes Patient Location: [facility] Uzma Mcdonald is a 52 year [...] CORONARY PLAT CHROMIUM BARE METAL STENT SYS [id number], 144 CM 06/26/2014 REMOVAL GALLBLADDER 2013 SUPRACERVICAL [...] as needed for worsening/no improvement. Hilda Morin APRN.CLASSIFICATION OFFICER documented in this encounterDunlap Memorial Hospital03-16-2023 Miscellaneous Notes* Telephone Encounter - David Fink MD - 01/28/2023 9:21 AM EDT Disregard. Finally read * Telephone Encounter - David Fink MD - 01/28/2023 8:03 AM EDT Can we check with radiology why her hand xray is still pending several days after it was taken? documented in this encounterDunlap Memorial Hospital03-14-2023 History of Present illness Narrative* [...] CORONARY PLAT CHROMIUM BARE METAL STENT SYS [id number], 144 CM 06/26/2014 REMOVAL GALLBLADDER 2013 SUPRACERVICAL [...] intact. ASSESSMENT/PLAN: 1. 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 David iFnk documented in this encounterDunlap Memorial Hospital09-15-2022 Miscellaneous Notes* Letter - Mammography Coordinator - 07/30/2022 1:52 PM EDT July 30, 2022 PID: [id number] Uzma Linnesmeconnie [address] [place] [address] Dear Ms. Mcdonald, We are pleased to [...] report will be kept [facility] as part of your permanent medical record and are available for your continuing care. Thank you for allowing us to help in meeting your health care needs. Sincerely, Dr. Santiago Interpreting Radiologist [facility] (Normal over 40) documented in this encounterDunlap Memorial Hospital09-15-2022 History of Present illness Narrative* Ashley [...] 30, 2022 12:36 PM documented in this encounterDunlap Memorial Hospital09-13-2022 Miscellaneous Notes* Telephone Encounter - [...] a1c in six months documented in this encounterDunlap Memorial Hospital09-12-2022 History of Present illness Narrative* David Fink MD - 07/27/2022 1:10 PM EDT Patient presents with: Establish Care HPI: Patient presents today for office visit for getting established. CARDIO: she had an MT in 2013 and stent last May in [...] lens implant PAST SURGICAL HISTORY OF 03/31/2021 [employer] stent REBEL CORONARY PLAT CHROMIUM BARE METAL STENT SYS [id number], 144 CM 06/26/2014 REMOVAL GALLBLADDER 2013 SUPRACERVICAL [...] refill. ASSESSMENT/PLAN: 1. 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 Freda Hermosillo documented in this encounterDunlap Memorial Hospital08-02-2022 Miscellaneous Notes* Telephone Encounter - Tonie Cortez RN - 06/16/2022 8:29 AM EDT Patient had supracervical hysterectomy with bilateral salpingectomy and right oophorectomy and cystoscopy on 05/28/22. Tonie Cortez RN documented in this encounterDunlap Memorial Hospital2022 History of Present illness Narrative* Kyleigh Saucedo MD - 06/08/2022 2:00 PM EDT DATE OF SERVICE: 06/08/2022 PROBLEM: Uzma Mottaconnie presents for postop visit. SURGERY & DATE: 05/28/22 supracervical abd. hyst w/ RSO and left salpingectomy and cysto at [facility] for fibroids, bleeding PATHOLOGY: pending SUBJECTIVE/INTERVAL [...] reviewed. Kyleigh Saucedo MD documented in this encounterDunlap Memorial Hospital2022 History of Present illness Narrative* Kyleigh Saucedo MD - 06/08/2022 1:22 PM EDT Patient underwent supracervical hysterectomy with bilateral salpingectomy and right oophorectomy and cystoscopy at [facility] on 05/28/2022. The uterus was enlarged [...] removal. Kyleigh Saucedo MD documented in this encounterDunlap Memorial Hospital07-22-2022 Miscellaneous Notes* Telephone Encounter - [...] have kenyon removed 06/10/2022 documented in this encounterDunlap Memorial Hospital07-05-2022 History and physical note * [...] CORONARY PLAT CHROMIUM BARE METAL STENT SYS [id number], 144 CM 06/26/2014 REMOVAL GALLBLADDER 2013 Current [...] allergies Kyleigh Saucedo M.D. documented in this encounterDunlap Memorial Hospital06-20-2022 Miscellaneous Notes* Telephone Encounter - Margy Brown MD - 05/04/2022 4:10 PM EDT filed * Telephone Encounter - Aye Castro RN - 05/04/2022 3:36 PM EDT Refill request received via [employer]. Patient is scheduled for surgery with Dr. Saucedo on 05/28/22. Aye Castro RN documented in this encounterDunlap Memorial Hospital06-09-2022 Instructions* Patient Instructions* Juana Linton APRN.CLASSIFICATION OFFICER - 04/23/2022 11:35 AM EDT RESPIRATORY INFECTION [...] spread by coughs, sneezes, anddirect contact, especially [id number]. A respiratory tract infection usually clears up [...] 102 F (39 C). documented in this encounterDunlap Memorial Hospital06-09-2022 History of Present illness Narrative* Juana Linton APRN.CNP - 04/23/2022 11:05 AM EDT This note was created using CareSpotterriter. Subjective Uzma Mcdonald is a 51 year old female. 51 year old female with PMH of Two cardiac stents, HTN, and MT in 2013 presents with complaints of illness. 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 Denies CP. Denies hemoptysis. Utilized some claritin a couple of times. 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 +tobacco usage. Denies that her usage is affected by her illness, States she is currently trying tocut back/quit. The history is provided by the patient. No professor of languages was used. Cough This is a new [...] lens implant PAST SURGICAL HISTORY OF 03/31/2021 BiontroniVaavud stent REBEL CORONARY PLAT CHROMIUM BARE METAL STENT SYS [id number], 144 CM 06/26/2014 REMOVAL GALLBLADDER 2012 ALLERGIES [...] symptoms - Declines COVID testing. Juana Linton APRN.CLASSIFICATION OFFICER TEACHING PROVIDER (Physician/PA/WASTE SALVAGER) NOTE OF PERSONAL INVOLVEMENT IN CARE: I have personally seen and examined the patient and performed the medical decision-making components. I have reviewed the Advanced Practice Registered Nurse (WASTE SALVAGER) Student's documentation and verified the findings in the note as written. Any additions or changes are noted in bold/italics. Signature: Juana Linton Date: 04/23/2022 Time: 11:55 AM documented in this encounterDunlap Memorial Hospital06-09-2022 History of Present illness Narrative* [...] 23, 2022 11:00 AM documented in this encounterDunlap Memorial Hospital05-12-2022 Miscellaneous Notes* Telephone Encounter - Aye Csatro RN - 03/26/2022 12:42 PM EDT Patient called back and notified of below. Patient would like to proceed with surgery on 05/28 at [facility]. Aye Castro RN * Telephone Encounter - Marci Olsen LPN - 03/26/2022 12:31 PM EDT Left message to call office. Available date in May for surgery is 05/28/2022 at [facility]. 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 PAST SURGICAL HISTORY Procedure Laterality Date DILATION & CURETTAGE 1996 LIGATE FALLOPIAN TUBE 1996 PAST SURGICAL HISTORY OF Right 04/19/2020 intraocular lens implant PAST SURGICAL HISTORY OF 03/31/2021 [employer] stent REBEL CORONARY PLAT CHROMIUM BARE METAL STENT SYS [id number], 144 CM 06/26/2014 REMOVAL GALLBLADDER 2013 FAMILY [...] Making Kyleigh Saucedo MD documented in this encounterDunlap Memorial Hospital04-15-2022 Miscellaneous Notes* Telephone Encounter - Margy Brown MD - 02/27/2022 12:16 PM EDT Will file but please schedule her for follow up visit with RR thanks * Telephone Encounter - Kristen Duran LPN - 02/27/2022 11:03 AM EDT See pt's mychart refill request and advise. Kristen Duran LPN documented in this encounterDunlap Memorial Hospital04-15-2022 Miscellaneous Notes* Telephone Encounter - [...] Multiple refills since then documented in this encounterDunlap Memorial Hospital11-08-2021 Miscellaneous Notes* Telephone Encounter - [...] this large she will likely need MRI ([facility], fibroid protocol), EMB and we will need to coordinate with her waste oil pumper about care. Can see DM tomorrow, use both 820 and 840 slots or can use KJ afternoon slots 310-320 and 340 slots to give enough time. Thanks. Kyleigh Saucedo MD documented in this encounterDunlap Memorial Hospital05-17-2021 Evaluation note* Diagnosis Onset Date Resolution Status High cholesterol acute Essential (primary) hypertension chronic History of coronary artery stent placement March 31, 021 resolved [facility] Work Phone: Consult note Author Ck Cotto [facility] Note Date/Time April 02, 2025 1:54p m [facility] Medical Records Department [address] [place] [address] Anesthesia Postop Eval II 04/02/25 1305 MR#: [id number] Acct: [id number] Name: UZMA MCDONALD Rep #:[id number] : 1970 54 From: Ck Cotto MD PCP: Dr. David Fink MD Status:REG S DC Y Race: C Location: [address] Anesthesia Postop Eval I Sum Postop Eval Completion status Anesthesia document: Postop Eval 1 completed: Yes Anesthesia Postop Eval I Summary Anesthesia Postop Eval I Summary: Anesthesia Postop Eval I: Assessment Summary Airway patent Yes 04/02/25 12:06 SAFETY DEPOSIT BOXES CUSTODIAN.HBARR Spontaneous unlabored Yes 04/02/25 12:06 SAFETY DEPOSIT BOXES CUSTODIAN.HBARR respirations Mental status Awake 04/02/25 12:06 SAFETY DEPOSIT BOXES CUSTODIAN.HBARR nausea No 04/02/25 12:06 SAFETY DEPOSIT BOXES CUSTODIAN.HBARR Vomiting No 04/02/25 12:06 SAFETY DEPOSIT BOXES CUSTODIAN.HBARR Anesthesia Postop Eval I: Fluid Summary Crystalloid volume administer 500 04/02/25 12:06 SAFETY DEPOSIT BOXES CUSTODIAN.HBARR (ml) Colloids volume administered ( ml) Blood Product volume administered (ml) Total IV fluid infused 500 04/02/25 12:06 SAFETY DEPOSIT BOXES CUSTODIAN.HBARR Anesthesia Postop Eval I: Summary Notes Anesthesia Complication No 04/02/25 12:06 SAFETY DEPOSIT BOXES CUSTODIAN.HBARR Anesthesia Complication Comment: Post-operative progress note Anesthesia: Postop Eval II Evaluation Mental status: Awake Pain Level: 0 nausea: No Vomiting: No 04/02/25 1305 <Electronically signed by Ck Cotto MD > Date _ Ck Cotto MD [facility] Signature: Date CC: ~ Signed [facility] Work Phone: Discharge summary Author Theo [facility] Note Date/Time April 02, 2025 12:19 pm [facility] Medical Records Department [address] [place] [address] Instructions for Home/Discharge Instructions 04/02/25 1218 MR#: [id number] Acct: [id number] Name: UZMA MCDONALD Rep #:[id number] : 1970 54 From: Theo villegas [...] to schedule 2 week follow up appointment. [phone] Test Results: Test results from this visit will be discussed in further detail at your follow- up appointment, if applicable. Discharge Plan Admission Attending Provider: Theo Richard Primary Care Provider: David Fink Instructions Print Language: Bolivian Discharge Orders/Prescriptions Prescriptions: No Action sertraline [Zoloft] 50 mg tablet 50 mg PO QHS famotidine [Pepcid] 20 mg tablet 20 mg PO BID atorvastatin 80 mg tablet 80 mg PO QHS Qty: 90 3RF aspirin 81 MG tablet,chewable 81 mg PO DAILY@0800 Referrals / Follow Up: aDvid Fink MD [Primary Care Provider] - Disposition Disposition (needs filled in before D/C Order can be placed): Home, Self Care 04/02/25 1219<Electronically signed by Theo Richard MD>Theo Richard MD CC: Dr. David Fink MD ~ Signed [facility] Work Phone: Evaluation note* Diagnosis Menorrhagia with irregular cycle- Primary Excessive or frequent menstruation Uterine leiomyoma, unspecified location Iron deficiency anemia due to chronic blood loss Iron deficiency anemia secondary to blood loss (chronic) documented in this encounter [facility] note* Diagnosis Cough- Primary URI, acute Acute upper respiratory infections of unspecified site documented in this encounter [facility] note* Diagnosis Menorrhagia with irregular cycle- Primary Excessive or frequent menstruation Uterine leiomyoma, unspecified location Iron deficiency anemia due to chronic blood loss Iron deficiency anemia secondary to blood loss (chronic) documented in this encounter [facility] noteNo assessment information availableWAdams County Regional [facility] Work [facility]: Evaluation note* Diagnosis Onset Date Resolution Status Menorrhagia acute Uterine fibroid acute Anemia due to chronic blood loss [facility] Work Phone: Evaluation note* Diagnosis Uterine leiomyoma, unspecified location- Primary Iron deficiency anemia due to chronic blood loss Iron deficiency anemia secondary to blood loss (chronic) Menorrhagia with regular cycle Excessive or frequent menstruation documented [facility]* Diagnosis Postop check- Primary Follow-up examination, following unspecified surgery documented in this encounter [facility]* Diagnosis Coronary artery disease of [place] heart with stable angina pectoris, unspecified vessel or lesion type (HCC)- Primary Blood in stool Hyperglycemia Other abnormal glucose Tobacco use Tobacco use disorder Hyperlipidemia, mixed Mixed hyperlipidemia Neck mass Swelling, mass, or lump in head and neck documented in this encounter [facility]* Diagnosis Hyperglycemia- Primary Other abnormal glucose documented in this encounter [facility]* Diagnosis Obesity, Class I, BMI 30-34.9 Obesity, unspecified documented in [facility] encounter [facility]* Diagnosis Coronary artery disease of [place] heart with stable angina pectoris, unspecified vessel [...] disorder with anxiety documented in this [facility]* Diagnosis COVID-19- Primary [facility]* Diagnosis GERD without esophagitis- Primary Esophageal reflux Adjustment disorder with other symptom documented [facility]* Diagnosis Encounter for screening mammogram for malignant neoplasm of breast Other screening mammogram [facility] Diagnosis Acute cough- Primary Viral URI Acute upper respiratory infections of unspecified site Viral bronchitis Acute bronchitis Eye redness Redness or discharge of eye [facility] Diagnosis Acute cough- Primary Rhinosinusitis Unspecified sinusitis (chronic) documented in this encounter [facility] note* Diagnosis Acute cough- Primary Bronchitis Bronchitis, not specified as acute or chronic Acute cough documented [facility]* Diagnosis Acute cough documented in [facility]* Diagnosis Trigger little finger of right hand Trigger finger (acquired) Right elbow pain Pain in joint, upper arm documented in this encounter [facility] note* Diagnosis Cough documented in this encounter [facility] note* Diagnosis Encounter for screening mammogram for breast cancer- Primary documented in this encounter [facility] note* Diagnosis Encounter for screening mammogram for malignant neoplasm of breast- Primary Other screening mammogram documented [facility]* Diagnosis Encounter for screening mammogram for breast cancer documented in this encounter [facility] note* Diagnosis Burning with urination- Primary Dysuria documented in this encounter [facility] note* Diagnosis Pelvic mass- Primary Abdominal or pelvic swelling, mass or lump, unspecified site documented in this encounter [facility] note* Diagnosis Pelvic mass in female- Primary documented in this encounter [facility] note* Diagnosis Pelvic mass- Primary Abdominal or pelvic swelling, mass or lump, unspecified site Pelvic mass Abdominal or pelvic swelling, mass or lump, unspecified site Intra-abdominal and pelvic swelling, mass and lump, unspecified site documented in this encounter [facility] note* Diagnosis Pelvic mass in female- Primary Postoperative follow-up Follow-up examination, following unspecified surgery Yeast infection of the skin Candidiasis of skin and nails documented in this encounter [facility] note* 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 You are leaving AGAINST MEDICAL ADVICE. Risks are that you could get significantly more ill and become septic, develop damage to your organs, permanent disability, or . Please follow-up closely with your oncologist. Return anytime for admission or worsening symptoms.[facility] Work Phone: Progress note Author [facility] Note Date/Time April 19, 2025 9:41a m [facility] [place] [address] OFFICE VISIT Date of Service: 04/19/25905 MR#: [id number] Acct: [id number] Name: UZMA MCDONALD Rep #: [id number] : 1970 From: Imani fair MD Age/Sex: 54/F [place] [facility] [place]: Signed HPI Subjective Date of Service 04/19/25 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 The patient was seen in [facility] emergency room January 08, 2025 with [...] activity and tumor cell necrosis. IHC at [facility] positive for SMA, negative for desmin, STAT6, pancytokeratin, S100 and CD34. Additional IHC done at [facility] showed negative Desmin, negative Caldesmon, [...] omentectomy. * Docetaxel gemcitabine April 19, 2025 [facility] Medical History Encounter for education [...] no focal motor deficits Coordination / Balance: okaktv-eo-tgaa test normal Speech: speech normal Gait (Neuro): [...] showed no malignant cells. Was seen at [facility] sarcoma clinic by Dr. Cunningham in [...] discussed with patient . Imani Persaud MD Core Drilling Supervisor, [facility] Divisions of Medical Oncology & Hematology Department of Internal Medicine [place] [phone] This note was generated using a voice recognition system software. Although itwas reviewed by the author prior to finalization, it may still contain incorrectwords, spelling, and punctuation that were not noted when reviewing prior to saving. If a clinically significant typo or inaccurately typed phrase is noted, please notify the author. 04/19/25 1657 <Electronically signed by Imani jones MD> Date _ Imani Persaud MD Cosigner Signature: Date (if applicable) CC: ~ [employer] Work Phone: Reason for referral (narrative)* Diagnostic Procedure Only (Routine) - Pending Review Specialty Diagnoses / Procedures Referred By Lisa melchor Referred To Contact US IMAGING Diagnoses Neck mass Procedures US HEAD/NECK SOFT TISSUE OTHER US SOFT TISSUE HEAD & NECK REAL TIME IMGE David Garcia MD [address] [place] [id number] [facility] Referral ID Status Reason Start Date Expiration Date Visits Requested Visits Authorized [id number] Pending Review Auto-Generat ed Referral 07/27/2022 08/26/2023 1 1 * Consult, Test, Treat (Routine) - Authorized Specialty Diagnoses / Procedures Referred By Contac t Referred To Contact General Surgery Diagnoses Blood in stool Procedures CONSULT TO GENERAL SURGERY OFFICE/OUTPATIENT [facility] MDM 60-74 MINUTES David Fink MD [address] [place] [address] Referral ID Status Reason Start Date Expiration Date Visits Requested Visits Authorized [id number] Authorized PCP Requested Referral 07/27/2022 07/27/2023 1 1 [facility] for referral (narrative)* Diagnostic Procedure Only (Routine) - Closed Specialty Diagnoses / Procedures Referred By Lisa t Referred To Contact BR IMAGING Diagnoses Obesity, Class I, BMI 30-34.9 Procedures BRITTANY SCREENING SCREENING MAMMOGRAPHY BI 2-VIEW BREAST INC CAD Sunday Cr PA-C [address] [place] [address] Br Imaging [address] [place] [address] Referral ID Status Reason Start Date Expiration Date V isits Requested Visits Authorized [id number] Closed Auto-Generate d Referral 07/23/2022 08/22/2023 1 1 [facility] for referral (narrative)* Outpatient Procedure (Routine) - Authorized Specialty Diagnoses / Procedures Referred By Contac t Referred To Contact [facility] Diagnoses Numbness Procedures EMG(NEURO/NI) NERVE CONDUCTION STUDIES 9-10 STUDIES David Fink MD [address] [place] [address] Neurological [place] [address] [place] [address] Referral ID Status Reason Start Date Expiration Date Visits Requested Visits Authorized [id number] Authorized Auto-Generat ed Referral 01/26/2023 01/27/2024 1 1 * Diagnostic Procedure Only (Routine) - Closed Specialty Diagnoses / Procedures Referred By Contac t Referred To Contact XR IMAGING Diagnoses Right elbow pain Procedures XR ELBOW GENERAL 2V AP/LAT RIGHT RADEX ELBOW 2 VIEWS David Fink MD [address] [place] [address] Xr Imaging Referral ID Status Reason Start Date Expiration Date V isits Requested Visits Authorized [id number] Closed Auto-Generate d Referral 01/26/2023 02/25/2024 1 1 * Diagnostic Procedure Only (Routine) - Closed Specialty Diagnoses / Procedures Referred By Contac t Referred To Contact XR IMAGING Diagnoses Trigger little finger of right hand Procedures XR HAND GENERAL 3V PA/LAT/OBL RIGHT RADEX HAND MINIMUM 3 VIEWS David Fink MD [address] [place] [address] Xr Imaging Referral ID Status Reason Start Date Expiration Date V isits Requested Visits Authorized [id number] Closed Auto-Generate d Referral 01/26/2023 02/25/2024 1 1 [facility] for referral (narrative)* Diagnostic Procedure Only (Routine) - Closed Specialty Diagnoses / Procedures Referred By Contac t Referred To Contact XR IMAGING Diagnoses Right elbow pain Procedures XR ELBOW GENERAL 2V AP/LAT RIGHT RADEX ELBOW 2 VIEWS David Fink MD [address] [place] [address] [place] [address] Referral ID Status Reason Start Date Expiration Date V isits Requested Visits Authorized [id number] Closed Auto-Generate d Referral 01/26/2023 02/25/2024 1 1 * Diagnostic Procedure Only (Routine) - Closed Specialty Diagnoses / Procedures Referred By Contac t Referred To Contact XR IMAGING Diagnoses Trigger little finger of right hand Procedures XR HAND GENERAL 3V PA/LAT/OBL RIGHT RADEX HAND MINIMUM 3 VIEWS David Fink MD [address] [place] [address] [facility] [id number] Referral ID Status Reason Start Date Expiration Date V isits Requested Visits Authorized [id number] Closed Auto-Generate d Referral 01/26/2023 02/25/2024 1 1 [facility] for referral (narrative)* Diagnostic Procedure Only (Routine) - Authorized Specialty Diagnoses / Procedures Referred By Contac t Referred To Contact BR IMAGING Diagnoses Encounter for screening mammogram for breast cancer Procedures BRITTANY SCREENING W ALFONSO SCREENING DIGITAL BREAST TOMOSYNTHESIS BI SCREENING MAMMOGRAPHY BI 2-VIEW BREAST INC CAD Susy Smith APRN.CLASSIFICATION OFFICER [address] [place] [address] Br Imaging [address] [place] [address] Referral ID Status Reason Start Date Expiration Date Visits Requested Visits Authorized [id number] Authorized Auto-Generat ed Referral 4 10/25/2025 1 1 [facility] for referral (narrative)* Diagnostic Procedure Only (Routine) - New Request Specialty Diagnoses / Procedures Referred By Lisa t Referred To Contact BR IMAGING Diagnoses Encounter for screening mammogram for malignant neoplasm of breast Procedures BRITTANY SCREENING W ALFONSO SCREENING DIGITAL BREAST TOMOSYNTHESIS BI SCREENING MAMMOGRAPHY BI 2-VIEW BREAST INC Susy Shaver APRN.CLASSIFICATION OFFICER [address] [place], [place] [phone] [facility] [address] [place] [address] Referral ID Status Reason Start Date Expiration Date Visits Requested Visits Authorized [id number] New Request Auto-Generat ed Referral 4 10/25/2025 1 1 [facility] for referral (narrative)No reason for referral information availableWAdams [facility] Work Phone: Reason for visit Narrative* Diagnostic Procedure Only (Routine) - Closed Specialty Diagnoses / Procedures Referred By Contac t Referred To Contact BR IMAGING Diagnoses Obesity, Class I, BMI 30-34.9 Procedures BRITTANY SCREENING SCREENING MAMMOGRAPHY BI 2-VIEW BREAST INC CAD Sunday Cr PA-C [address] [place] [phone] Br Imaging [address] [place] [phone] Referral ID Status Reason Start Date Expiration Date V isits Requested Visits Authorized [id number] Closed Auto-Generate d Referral 07/23/2022 08/22/2023 1 1 [facility] for visit Narrative* Diagnostic Procedure Only (Routine) - Closed Specialty Diagnoses / Procedures Referred By Contac t Referred To Contact BR IMAGING Diagnoses Encounter for screening mammogram for malignant neoplasm of breast Procedures BRITTANY SCREENING SCREENING MAMMOGRAPHY BI 2-VIEW BREAST INC CAD David Fink MD [address] [place] [phone] Br Imaging [address] [place] [phone] Referral ID Status Reason Start Date Expiration Date V isits Requested Visits Authorized [id number] Closed Auto-Generate d Referral 08/31/2023 09/29/2024 1 1 [facility] for visit Narrative* Diagnostic Procedure Only (Routine) - Closed Specialty Diagnoses / Procedures Referred By Contac t Referred To Contact XR IMAGING Diagnoses Right elbow pain Procedures XR ELBOW GENERAL 2V AP/LAT RIGHT RADEX ELBOW 2 VIEWS David Fink MD [address] [place] [phone] [place] [address] Referral ID Status Reason Start Date Expiration Date V isits Requested Visits Authorized [id number] Closed Auto-Generate d Referral 01/26/2023 02/25/2024 1 1 [facility] for visit Narrative* Diagnostic Procedure Only (Routine) - Closed Specialty Diagnoses / Procedures Referred By Contac t Referred To Contact BR IMAGING Diagnoses Encounter for screening mammogram for breast cancer Procedures BRITTANY SCREENING W ALFONSO SCREENING DIGITAL BREAST TOMOSYNTHESIS BI SCREENING MAMMOGRAPHY BI 2-VIEW BREAST INC CAD Susy Smith, WASTE SALVAGER.CLASSIFICATION OFFICER [address] [place] [address] Br Imaging [address] [address] Referral ID Status Reason Start Date Expiration Date V isits Requested Visits Authorized [id number] Closed Auto-Generate d Referral 09/25/2024 10/25/2025 1 1 [facility] for visit Narrative* Auth/Cert (Routine) Specialty Diagnoses / Procedures Referred By Lisa melchor Referred To Contact Diagnoses Intra-abdominal and pelvic swelling, mass and lump, unspecified site Procedures DE EXPLORATORY LAPAROTOMY CELIOTOMY W/WO BIOPSY SPX DE LAPAROSCOPY W/RMVL ADNEXAL STRUCTURES DE LMTD LMPHADEC STAGING SPX PEL&PARA-AORTIC DE LAPAROSCOPY SURG W/BX SINGLE/MULTIPLE LAPAROTOMY, EXPLORATORY LEFT LAPAROSCOPIC, SALPINGO-OOPHORECTOMY POSSIBLE LYMPHADENECTOMY, PARA-AORTIC OR PELVIC, LIMITED, FOR STAGING LAPAROSCOPY, WITH BIOPSY Darvin Grady MD [address] [facility] [address] [place] [address] Phone: tel: fax: Referral ID Status Reason Start Date Expiration Date Visits Re quested Visits Authorized [id number] 01/17/2025 1 1 [facility] Chief Complaint and Reason for Visit [...] 9:09 am Encounter for chemotherapy management Ju ms 2024 9:09am Primary leiomyosarcoma of pelvis May [...] May 21, 2022 1 1:02am Power of Botany Professor No May 21, 2022 11:02am Advance Directive Response Recorded Date/ Time Living Will No May 28, 2022 2:48pm Power of Botany Professor No May 28 2:48pm Advance Directive Response Recorded Date/ Time Living Will No May 28, 2022 1:48pm Power of Botany Professor No May 28 1:48pm Date Activated Date Inactivated Comments 01/26/2025 6:33 AM 01/27/2025 2:16 PM Advance Directive Response Recorded Date/ Time Living Will No January 08 025 8:27pm Power of Botany Professor No January 08, 2025 8:27pm Date Activated Date Inactivated Comments 01/26/2025 6:33 AM 01/27/2025 2:16 PM Advance Directive Response Recorded Date/ Time Living Will No January 08, 8:27pm Do you have a Healthcare Power of Botany Professor? No January 08, 2025 8:27pm Advance Directive Response Recorded Date/ Time Living Will No January 08 8:27pm Do you have a Healthcare Power of Botany Professor? No January 08, 2025 8:27pm Do you have a Healthcare Power of Botany Professor? No March 28, 2025 2:20pm Advance Directive Response Recorded Date/ Time Advance Directives on File No April 19, 2025 10:08am Living Will No April 19, 2025 1 0:08am Do you have a Healthcare Power of Botany Professor? No April 19, 2025 10:08am Advance Directives No April 19 10:08am Living Will No January 08 8:27pm Do you have a Healthcare Power of Botany Professor? No January 08, 2025 8:27pm Do you have a Healthcare Power of Botany Professor? No March 28, 2025 2:20pm Advance Directive Response Recorded Date/ Time Advance Directives on File No April 26, 2025 10:00am Living Will No April 26, 2025 10:00am Do you have a Healthcare Power of Botany Professor? No April 26, 2025 10:00am Advance Directives No April 26 10:00am Do you have a Healthcare Power of Botany Professor? No April 28, 2025 7:34pm Living Will No January 08 8:27pm Do you have a Healthcare Power of Botany Professor? No January 08, 2025 8:27pm Do you have a Healthcare Power of Botany Professor? No March 28, 2025 2:20pm Advance Directive Response Recorded Date/ Time Advance Directives on File No April 26, 2025 10:00am Living Will No April 26, 2025 10:00am Do you have a Healthcare Power of Botany Professor? No April 26, 2025 10:00am Advance Directives No April 26 10:00am Do you have a Healthcare Power of Botany Professor? No April 28, 2025 7:34pm Living Will No January 08 8:27pm Do you have a Healthcare Power of Botany Professor? No January 08, 2025 8:27pm Do you have a Healthcare Power of Botany Professor? No March 28, 2025 2:20pm Do you have a Healthcare Power of Botany Professor? No May 04, 2025 6:13pm Advance Directive Response Recorded Date/ Time Advance Directives on File No April 26, 2025 10:00am Living Will No April 26, 2025 10:00am Do you have a Healthcare Power of Botany Professor? No April 26, 2025 10:00am Advance Directives No April 26 10:00am Do you have a Healthcare Power of Botany Professor? No April 28, 2025 7:34pm Do you have a Healthcare Power of Botany Professor? No March 28, 2025 2:20pm Do you have a Healthcare Power of Botany Professor? No May 04, 2025 6:13pm Advance Directive Response Recorded Date/ Time Advance Directives on File No May 10, 2025 11:48am Living Will No May 10, 2025 11:48am Do you have a Healthcare Power of Botany Professor? No May 10, 2025 11:48am Advance Directives No May 10 11:48am Do you have a Healthcare Power of Botany Professor? No April 28, 2025 7:34pm Do you have a Healthcare Power of Botany Professor? No March 28, 2025 2:20pm Do you have a Healthcare Power of Botany Professor? No May 04, 2025 6:13pm Advance Directive Response Recorded Date/ Time Advance Directives on File No May 17, 2025 10:28am Living Will No May 17, 2025 1 0:28am Do you have a Healthcare Power of Botany Professor? No May 17, 2025 10:28am Advance Directives No May 17 10:28am Do you have a Healthcare Power of Botany Professor? No April 28, 2025 7:34pm Do you have a Healthcare Power of Botany Professor? No March 28, 2025 2:20pm Do you have a Healthcare Power of Botany Professor? No May 04, 2025 6:13pm Advance Directive Response Recorded Date/ Time Advance Directives on File No May 31, 2025 11:30am Living Will No May 31, 2025 11:30am Do you have a Healthcare Power of Botany Professor? No May 31, 2025 11:30am Advance Directives No May 31 11:30am Do you have a Healthcare Power of Botany Professor? No April 28, 2025 7:34pm Do you have a Healthcare Power of Botany Professor? No March 28, 2025 2:20pm Do you have a Healthcare Power of Botany Professor? No May 04, 2025 6:13pm Advance Directive Response Recorded Date/ Time Advance Directives on File No June 14, 2025 11:27am Living Will No June 14, 2025 11:27am Do you have a Healthcare Power of Botany Professor? No June 14, 2025 11:27am Advance Directives No June 14 11:27am Do you have a Healthcare Power of Botany Professor? No April 28, 2025 7:34pm Do you have a Healthcare Power of Botany Professor? No March 28, 2025 2:20pm Do you have a Healthcare Power of Botany Professor? No May 04, 2025 6:13pm Family History [...] or prosecute any alcohol or drug abuse patient.[facility] the event this information is protected by the Federal Confidentiality of Alcohol and Drug Abuse Patient Records regulations: The Federal rules restrict any use of the information to criminally investigate or prosecute any alcohol or drug abuse patient.[facility] the event this information is protected by the Federal Confidentiality of Alcohol and Drug Abuse Patient Records regulations: The Federal rules restrict any use of the information to criminally investigate or prosecute any alcohol or drug abuse patient.[facility] the event this information is protected by the Federal Confidentiality of Alcohol and Drug Abuse Patient Records regulations: The Federal rules restrict any use of the information to criminally investigate or prosecute any alcohol or drug abuse patient.[facility] the event this information is protected by the Federal Confidentiality of Alcohol and Drug Abuse Patient Records regulations: The Federal rules restrict any use of the information to criminally investigate or prosecute any alcohol or drug abuse patient.[facility] the event this information is protected by the Federal Confidentiality of Alcohol and Drug Abuse Patient Records regulations: The Federal rules restrict any use of the information to criminally investigate or prosecute any alcohol or drug abuse patient.[facility] the event this information is protected by the Federal Confidentiality of Alcohol and Drug Abuse Patient Records regulations: The Federal rules restrict any use of the information to criminally investigate or prosecute any alcohol or drug abuse patient.[facility] the event this information is protected by the Federal Confidentiality of Alcohol and Drug Abuse Patient Records regulations: The Federal rules restrict any use of the information to criminally investigate or prosecute any alcohol or drug abuse patient.[facility] the event this information is protected by the Federal Confidentiality of Alcohol and Drug Abuse Patient Records regulations: The Federal rules restrict any use of the information to criminally investigate or prosecute any alcohol or drug abuse patient.[facility] the event this information is protected by the Federal Confidentiality of Alcohol and Drug Abuse Patient Records regulations: The Federal rules restrict any use of the information to criminally investigate or prosecute any alcohol or drug abuse patient.[facility] the event this information is protected by the Federal Confidentiality of Alcohol and Drug Abuse Patient Records regulations: The Federal rules restrict any use of the information to criminally investigate or prosecute any alcohol or drug abuse patient.[facility] Hospital[facility] the event this information is protected by the Federal Confidentiality of Alcohol and Drug Abuse Patient Records regulations: The Federal rules restrict any use of the information to criminally investigate or prosecute any alcohol or drug abuse patient.[facility] HospitalIn the event this information is protected by the Federal Confidentiality of Alcohol and Drug Abuse Patient Records regulations: The Federal rules restrict any use of the information to criminally investigate or prosecute any alcohol or drug abuse patient.[facility] HospitalIn the event this information is protected by the Federal Confidentiality of Alcohol and Drug Abuse Patient Records regulations: The Federal rules restrict any use of the information to criminally investigate or prosecute any alcohol or drug abuse patient.[facility] HospitalIn the event this information is protected by the Federal Confidentiality of Alcohol and Drug Abuse Patient Records regulations: The Federal rules restrict any use of the information to criminally investigate or prosecute any alcohol or drug abuse patient.[facility] HospitalIn the event this information is protected by the Federal Confidentiality of Alcohol and Drug Abuse Patient Records regulations: The Federal rules restrict any use of the information to criminally investigate or prosecute any alcohol or drug abuse patient.[facility] HospitalIn the event this information is protected by the Federal Confidentiality of Alcohol and Drug Abuse Patient Records regulations: The Federal rules restrict any use of the information to criminally investigate or prosecute any alcohol or drug abuse patient.[facility] HospitalIn the event this information is protected by the Federal Confidentiality of Alcohol and Drug Abuse Patient Records regulations: The Federal rules restrict any use of the information to criminally investigate or prosecute any alcohol or drug abuse patient.[facility] HospitalIn the event this information is protected by the Federal Confidentiality of Alcohol and Drug Abuse Patient Records regulations: The Federal rules restrict any use of the information to criminally investigate or prosecute any alcohol or drug abuse patient.[facility] HospitalIn the event this information is protected by the Federal Confidentiality of Alcohol and Drug Abuse Patient Records regulations: The Federal rules restrict any use of the information to criminally investigate or prosecute any alcohol or drug abuse patient.[facility] HospitalIn the event this information is [...] or prosecute any alcohol or drug abuse patient.[facility] HospitalIn the event this information is protected by the Federal Confidentiality of Alcohol and Drug Abuse Patient Records regulations: The Federal rules restrict any use of the information to criminally investigate or prosecute any alcohol or drug abuse patient.[facility] HospitalIn the event this information is protected by the Federal Confidentiality of Alcohol and Drug Abuse Patient Records regulations: The Federal rules restrict any use of the information to criminally investigate or prosecute any alcohol or drug abuse patient.[facility] HospitalIn the event this information is protected by the Federal Confidentiality of Alcohol and Drug Abuse Patient Records regulations: The Federal rules restrict any use of the information to criminally investigate or prosecute any alcohol or drug abuse patient.[facility] HospitalIn the event this information is protected by the Federal Confidentiality of Alcohol and Drug Abuse Patient Records regulations: The Federal rules restrict any use of the information to criminally investigate or prosecute any alcohol or drug abuse patient.[facility] HospitalIn the event this information is protected by the Federal Confidentiality of Alcohol and Drug Abuse Patient Records regulations: The Federal rules restrict any use of the information to criminally investigate or prosecute any alcohol or drug abuse patient.[facility] HospitalIn the event this information is protected by the Federal Confidentiality of Alcohol and Drug Abuse Patient Records regulations: The Federal rules restrict any use of the information to criminally investigate or prosecute any alcohol or drug abuse patient.[facility] HospitalIn the event this information is protected by the Federal Confidentiality of Alcohol and Drug Abuse Patient Records regulations: The Federal rules restrict any use of the information to criminally investigate or prosecute any alcohol or drug abuse patient.[facility] HospitalIn the event this information is protected by the Federal Confidentiality of Alcohol and Drug Abuse Patient Records regulations: The Federal rules restrict any use of the information to criminally investigate or prosecute any alcohol or drug abuse patient.[facility] HospitalIn the event this information is protected by the Federal Confidentiality of Alcohol and Drug Abuse Patient Records regulations: The Federal rules restrict any use of the information to criminally investigate or prosecute any alcohol or drug abuse patient.[facility] HospitalIn the event this information is protected by the Federal Confidentiality of Alcohol and Drug Abuse Patient Records regulations: The Federal rules restrict any use of the information to criminally investigate or prosecute any alcohol or drug abuse patient.[facility] HospitalIn the event this information is protected by the Federal Confidentiality of Alcohol and Drug Abuse Patient Records regulations: The Federal rules restrict any use of the information to criminally investigate or prosecute any alcohol or drug abuse patient.[facility] HospitalIn the event this information is protected by the Federal Confidentiality of Alcohol and Drug Abuse Patient Records regulations: The Federal rules restrict any use of the information to criminally investigate or prosecute any alcohol or drug abuse patient.[facility] HospitalIn the event this information is protected by the Federal Confidentiality of Alcohol and Drug Abuse Patient Records regulations: The Federal rules restrict any use of the information to criminally investigate or prosecute any alcohol or drug abuse patient.[facility] HospitalIn the event this information is protected by the Federal Confidentiality of Alcohol and Drug Abuse Patient Records regulations: The Federal rules restrict any use of the information to criminally investigate or prosecute any alcohol or drug abuse patient.[facility] HospitalIn the event this information is protected by the Federal Confidentiality of Alcohol and Drug Abuse Patient Records regulations: The Federal rules restrict any use of the information to criminally investigate or prosecute any alcohol or drug abuse patient.[facility] HospitalIn the event this information is protected by the Federal Confidentiality of Alcohol and Drug Abuse Patient Records regulations: The Federal rules restrict any use of the information to criminally investigate or prosecute any alcohol or drug abuse patient.[facility] HospitalIn the event this information is protected by the Federal Confidentiality of Alcohol and Drug Abuse Patient Records regulations: The Federal rules restrict any use of the information to criminally investigate or prosecute any alcohol or drug abuse patient.[facility] Reason for Visit (unrecogniz ed section and content) Reason Comments Appointment Reason Onset Date Comments Refill Request 02/27/2022 Reason Comments Schedule Surgery Reason Comments Discussion Specialty Diagnoses / Procedures Referred By Contisrael t Referred To Contact 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 Imani Persaud MB [facility] [address] [place] [address] Phone: tel: fax: Christopher Cunningham MD [address] [place] [address] Phone: tel: fax: Referral ID Status Reason Start Date Expiration Date Visits Requested Visits Authorized [id number] New Request Clinical Trial 02/27/2025 03/24/2026 1 1 Goals (unrecognized section and content) Goals may be documented in a n alternate sectionGoals may be documented in an alternate sectionGoals may be documented in an alternate sectionGoals may be documented in an alternate sectionGoals may be documented in an alternate section Care Teams (unrecognized sec tion and content) Radio Frequency Technician Relationship Specialty Start Date End Date David Fink MD [address] [place] [address] PCP - General Family Practice 07/27/22 Radio Frequency Technician Relationship Specialty Start Date End Date David Fink MD [address] [place] [address] PCP - General Family Practice 07/27/22 Radio Frequency Technician Relationship Specialty Start Date End Date David Fink MD [address] [place] [address] PCP - General Family Practice 07/27/22 Radio Frequency Technician Relationship Specialty Start Date End Date David Fink MD [address] [place] [address] PCP - General Family Practice 07/27/22 Radio Frequency Technician Relationship Specialty Start Date End Date David Fink MD [address] [place] [address] PCP - General Family Medicine 07/27/22 Radio Frequency Technician Relationship Specialty Start Date End Date David Fink MD [address] [place] [address] PCP - General Family Medicine 07/27/22 Team Status: Active Member Role Status Dates Meagan Weinstein COMMISSION ASSOCIATE, COMMISSION ASSOCIATE-C Family Provider Active Dr. David Fink MD [...] Dr. Joni Michel MD Attending Provider Active Radio Frequency Technician Relationship Specialty Start Date End Date David Fink MD [address] [place] [address] PCP - General Family Medicine 07/27/22 Radio Frequency Technician Relationship Specialty Start Date End Date David Fink MD [address] [place] [address] PCP - General Family Medicine 07/27/22 Radio Frequency Technician Relationship Specialty Start Date End Date David Fink MD [address] [place] [address] PCP - General Family Medicine 07/27/22 Radio Frequency Technician Relationship Specialty Start Date End Date David Fink MD [address] [place] [address] PCP - General Family Medicine 07/27/22 Radio Frequency Technician Relationship Specialty Start Date End Date David Fink MD [address] [place] [address] PCP - General Family Medicine 07/27/22 Radio Frequency Technician Relationship Specialty Start Date End Date David Fink MD [address] [place] [address] PCP - General Family Medicine 07/27/22 Radio Frequency Technician Relationship Specialty Start Date End Date David Fink MD [address] [place] [address] PCP - General Family Medicine 07/27/22 Radio Frequency Technician Relationship Specialty Start Date End Date David Fink MD [address] [place] [address] PCP - General Family Medicine 07/27/22 Radio Frequency Technician Relationship Specialty Start Date End Date David Fink MD [address] [place] [address] PCP - General Family Medicine 07/27/22 Radio Frequency Technician Relationship Specialty Start Date End Date David Fink MD [address] [place] [address] PCP - General Family Medicine 07/27/22 Radio Frequency Technician Relationship Specialty Start Date End Date David Fink MD [address] [place] [address] PCP - General Family Medicine 07/27/22 Radio Frequency Technician Relationship Specialty Start Date End Date David Fink MD [address] [place] [address] PCP - General Family Medicine 07/27/22 Radio Frequency Technician Relationship Specialty Start Date End Date David Fink MD [address] [place] [address] PCP - General Family Medicine 07/27/22 Radio Frequency Technician Relationship Specialty Start Date End Date David Fink MD [address] [place] [address] PCP - General Family Medicine 07/27/22 Radio Frequency Technician Relationship Specialty Start Date End Date David Fink MD [address] [place] [address] PCP - General Family Medicine 07/27/22 Hilda Morin APRN.CLASSIFICATION OFFICER [address] [place] [address] Christmas Tree Contractor Family Medicine 10/23/24 India Clifton WASTE SALVAGER.CLASSIFICATION OFFICER [address] [place] [address] Christmas Tree Contractor Family Medicine 10/23/24 Radio Frequency Technician Relationship Specialty Start Date End Date David Fink MD [address] [place] [address] PCP - General Family Medicine 07/27/22 Hilda Morin, WASTE SALVAGER.CLASSIFICATION OFFICER [address] [place] [address] Christmas Tree Contractor Family Medicine 10/23/24 India Clifton WASTE SALVAGER.CLASSIFICATION OFFICER [address] [place] [address] Christmas Tree Contractor [facility] 10/23/24 Radio Frequency Technician Relationship Specialty Start Date End Date David Fink MD [address] [place] [address] PCP - General Family Medicine 01/17/25 Darvin Grady MD [address] [place] [address] [address] [place] [address] Consulting Physician Gynecologic Oncology 01/16/25 Radio Frequency Technician Relationship Specialty Start Date End Date David Fink MD [address] [place], [place] [address] PCP - General Family Medicine 01/17/25 Darvin Grady MD [address] [facility] [address] [place], [place] [id number] Consulting Physician Gynecologic Oncology 01/16/25 Radio Frequency Technician Relationship Specialty Start Date End Date David Fink MD [address] [place] [address] PCP - General Family Medicine 01/17/25 Darvin Grady MD [address] [facility] [address] [place] [address] Consulting Physician Gynecologic Oncology 01/16/25 Radio Frequency Technician Relationship Specialty Start Date End Date David Fink MD [address] [place] [address] PCP - General Family Medicine 01/17/25 Darvin Grady MD [address] [facility] [address] [place] [address] Consulting Physician Gynecologic Oncology 01/16/25 Team Status: [...] End: January 10, 2025 Nabil Aslanides , COMMISSION ASSOCIATE-C Referring Provider Active Start: January 10, 2025 [...] January 12, 2025 End: January 12, 2025 Radio Frequency Technician Relationship Specialty Start Date End Date David Fink MD [address] [place] [address] PCP - General Family Medicine 01/17/25 Darvin Grady MD [address] [place] [address] Consulting Physician Gynecologic Oncology 01/16/25 Ashok Herbert, WASTE SALVAGER - CLASSIFICATION OFFICER [address] [place] [address] Nurse Practitioner Nurse Practitioner 02/14/25 Radio Frequency Technician Relationship Specialty Start Date End Date David Fink MD [address] [place] [address] PCP - General Family Medicine 01/17/25 Darvin Grady MD [address] [place] [address] Consulting Physician Gynecologic Oncology 01/16/25 Ashok Herbert, WASTE SALVAGER - CLASSIFICATION OFFICER [address] [place] [address] Nurse Practitioner Nurse Practitioner 02/14/25 Radio Frequency Technician Relationship Specialty Start Date End Date David Fink MD [address] [place] [address] PCP - General Family Medicine 01/17/25 Darvin Grady MD [address] [facility] [address] [place] [address] Consulting Physician Gynecologic Oncology 01/16/25 Ashok Herbert, WASTE SALVAGER - CLASSIFICATION OFFICER [address] [facility] [address] [place] [address] Nurse Practitioner Nurse Practitioner 02/14/25 Radio Frequency Technician Relationship Specialty Start Date End Date David Fink MD [address] [place] [address] PCP - General Family Medicine 01/17/25 Darvin Grady MD [address] [facility] [address] [place] [address] Consulting Physician Gynecologic Oncology 01/16/25 Ashok Herbert, WASTE SALVAGER - CLASSIFICATION OFFICER [address] [facility] [address] [place] [address] Nurse Practitioner Nurse Practitioner 02/14/25 Radio Frequency Technician Relationship Specialty Start Date End Date David Fink MD [address] [place] [address] PCP - General Family Medicine 01/17/25 Darvin Grady MD [address] [facility] [address] [place] [address] Consulting Physician Gynecologic Oncology 01/16/25 Ashok Herbert, WASTE SALVAGER - CLASSIFICATION OFFICER [address] [facility] [address] [place] [address] Nurse Practitioner Nurse Practitioner 02/14/25 Team Status: [...] Other Provider Active Start: April 02, 2025 Radio Frequency Technician Relationship Specialty Start Date End Date David Fink MD [address] [facility] [place], [place] [address] PCP - General Family Medicine 02/27/25 Imani Persaud MB [facility] [address] [place], [place] [address] Oncologist Medical Oncology 02/27/25 Shannan Kearney, RN Registered Nurse 02/27/25 Team Status: Inactive Member Role Status Dates Dr. David Fink MD Primary Care Provider Active Start: April 04, 2025 End: April 04, 2025 Dr. David Fink MD Referring Provider Active Start: April 04, 2025 End: April 04, 2025 Delmis Corral COMMISSION ASSOCIATE, COMMISSION ASSOCIATE-C Attending Provider Active Start: April 04, 2025 End: April 04, 2025 Team Status: Inactive Member Role Status Dates Dr. David Fink MD Primary Care Provider Active Start: April 18, 2025 End: April 18, 2025 Dr. David Fink MD Referring Provider Active Start: April 18, 2025 End: April 18, 2025 Keron Ross COMMISSION ASSOCIATE, COMMISSION ASSOCIATE-C Attending Provider Active S tart: April 18, [...] 2025 End: May 03, 2025 Delmis Corral COMMISSION ASSOCIATE, COMMISSION ASSOCIATE-C Attending Provider Active Start: May 03, 2025 [...] 2025 End: May 10, 2025 Delmis Corral COMMISSION ASSOCIATE, COMMISSION ASSOCIATE-C Attending Provider Active Start: May 10, 2025 [...] 2025 End: April 04, 2025 Delmis Corral COMMISSION ASSOCIATE, COMMISSION ASSOCIATE-C Attending Provider Active Start: April 04, 2025 End: April 04, 2025 Team Status: Inactive Member Role/Relationship Status Dates Dr. David Fink MD Primary Care Provider Active Start: April 18, 2025 End: April 18, 2025 Dr. David Fink MD Referring Provider Active Start: April 18, 2025 End: April 18, 2025 Keron Ross COMMISSION ASSOCIATE, COMMISSION ASSOCIATE-C Attending Provider Active S tart: April 18, [...] 2025 End: May 03, 2025 Delmis Corral COMMISSION ASSOCIATE, COMMISSION ASSOCIATE-C Attending Provider Active Start: May 03, 2025 [...] 2025 End: May 10, 2025 Delmis Corral COMMISSION ASSOCIATE, COMMISSION ASSOCIATE-C Attending Provider Active Start: May 10, 2025 [...] 2025 End: May 31, 2025 Delmis Corral COMMISSION ASSOCIATE, COMMISSION ASSOCIATE-C Attending Provider Active Start: May 31, 2025 [...] 2025 End: June 07, 2025 Delmis Shayna COMMISSION ASSOCIATE, COMMISSION ASSOCIATE-C Attending Provider Active Start: June 07, 2025 End: June 07, 2025 Team Status: Inactive Member Role/Relationship Status Dates Dr. David Fink MD Primary Care Provider Active Start: June 08, 2025 End: June 08, 2025 Delmis Shayna COMMISSION ASSOCIATE, COMMISSION ASSOCIATE-C Attending Provider Active Start: June 08, 2025 End: June 08, 2025 Delmis Shayna COMMISSION ASSOCIATE, COMMISSION ASSOCIATE-C Referring Provider Active Start: June 08, 2025 End: June 08, 2025 Team Status: Inactive Member Role/Relationship Status Dates Dr. David Fink MD Primary Care Provider Active Start: June 07, 2025 End: June 07, 2025 Dr. David Fink MD Referring Provider Active Start: June 07, 2025 End: June 07, 2025 Delmis Shayna COMMISSION ASSOCIATE, COMMISSION ASSOCIATE-C Attending Provider Active Start: June 07, 2025 End: June 07, 2025 Team Status: Inactive Member Role/Relationship Status Dates Dr. David Fink MD Primary Care Provider Active Start: June 08, 2025 End: June 08, 2025 Delmis Shayna COMMISSION ASSOCIATE, COMMISSION ASSOCIATE-C Attending Provider Active Start: June 08, 2025 End: June 08, 2025 Delmis Shayna COMMISSION ASSOCIATE, COMMISSION ASSOCIATE-C Referring Provider Active Start: June 08, 2025 [...] 2025 End: April 04, 2025 Delmis Corral COMMISSION ASSOCIATE, COMMISSION ASSOCIATE-C Attending Provider Active Start: April 04, 2025 End: April 04, 2025 Team Status: Inactive Member Role/Relationship Status Dates Dr. David Fink MD Primary Care Provider Active Start: April 18, 2025 End: April 18, 2025 Dr. David Fink MD Referring Provider Active Start: April 18, 2025 End: April 18, 2025 Keron Ross NP, COMMISSION ASSOCIATE-C Attending Provider Active S tart: April 18, [...] 2025 End: May 03, 2025 Delmis Corral COMMISSION ASSOCIATE, COMMISSION ASSOCIATE-C Attending Provider Active Start: May 03, 2025 [...] 2025 End: May 10, 2025 Delmis Corral COMMISSION ASSOCIATE, COMMISSION ASSOCIATE-C Attending Provider Active Start: May 10, 2025 [...] 2025 End: May 31, 2025 Delmis Corral COMMISSION ASSOCIATE, COMMISSION ASSOCIATE-C Attending Provider Active Start: May 31, 2025 End: May 31, 2025 Team Status: Inactive Member Role/Relationship Status Dates Dr. David Fink MD Primary Care Provider Active Start: June 07, 2025 End: June 07, 2025 Dr. David Fink MD Referring Provider Active Start: June 07, 2025 End: June 07, 2025 Delmis Corral COMMISSION ASSOCIATE, COMMISSION ASSOCIATE-C Attending Provider Active Start: June 07, 2025 End: June 07, 2025 Team Status: Inactive Member Role/Relationship Status Dates Dr. David Fink MD Primary Care Provider Active Start: June 08, 2025 End: June 08, 2025 Delmis Corral COMMISSION ASSOCIATE, COMMISSION ASSOCIATE-C Attending Provider Active Start: June 08, 2025 End: June 08, 2025 Delmis Corral COMMISSION ASSOCIATE, COMMISSION ASSOCIATE-C Referring Provider Active Start: June 08, 2025 [...] 2025 End: July 12, 2025 Delmis Corral COMMISSION ASSOCIATE, COMMISSION ASSOCIATE-C Attending Provider Active Start: July 12, 2025 [...] sedation for opioid reversal - MUST notify energy conservation director provider immediately after first dose, may give [...] section and content) DATE CREATED AUTHOR 02/16/2025 [facility] DATE CREATED AUTHOR AUTHOR'S ORGANIZ ATION 02/17/2025 [facility] DATE CREATED AUTHOR AUTHOR'S ORGANIZ ATION 05/09/2025 [facility] DATE CREATED AUTHOR AUTHOR'S ORGANIZ ATION 07/14/2025 [facility] FOR RECORDS PERTAINING TO PATIENTS WHO [...] BE BASED ON THE PRIMARY CLINICAL RECORDS. [employer] provides no warranty or guarantee of the accuracy or completeness of information in this document.
--- NOTE | 2025-07-16 14:47 | ECHOD_ITS ---
Reason For Study Reason For Study: Other, Elevated BNP Procedure This was a 2D Doppler, Color Flow transthoracic echocardiogram. Myocardial strain analysis was performed in this exam to aid in the assessment of cardiac function. Exam performed portable in patient room. Left Ventricle Normal LV size. Mild eccentric left ventricular hypertrophy. Left ventricular systolic function is normal. The left ventricular ejection fraction is 60 %. The global longitudinal strain = -18.5 % (normal). Stage 1 diastolic dysfunction. No regional wall motion abnormalities noted. Right Ventricle Normal RV size. Normal systolic function. Atria The left atrium is moderately enlarged. Normal right atrium. Catheter tip visualized in RA. Aneurysmal atrial septum. Mitral Valve The mitral valve is structurally normal. No prolapse or stenosis seen. Mild (1+) mitral valve insufficiency. Tricuspid Valve Normal tricuspid valve. Trivial tricuspid valve insufficiency. Pulmonary artery systolic pressure is 30 mmHg. Aortic Valve Trisinus/trileaflet aortic valve. Trivial aortic valve insufficiency. Pulmonic Valve Normal pulmonic valve. Mild (1+) pulmonic valve insufficiency. Great Vessels Normal sized aortic root. Pericardium/Pleural No pericardial effusion. MMode/2D Measurements & Calculations LVIDd: 4.8 cm IVSd: 1.0 cm Ao root diam: 2.0 cm LVIDs: 3.5 cm LVPWd: 1.2 cm LA dimension: 2.1 cm RVDd: 3.9 cm FS: 27.6 % LAV(MOD-bp): 50.1 ml LVAd ap4: 29.2 cm2 SV(MOD-sp4): 60.2 ml LAV(MOD-bp) Indexed: 24.0 ml/m2 LVLd ap4: 7.7 cm SI(MOD-sp4): 28.8 ml/m2 LAV(MOD-sp2): 47.1 ml EDV(MOD-sp4): 94.4 ml LAV(MOD-sp4): 51.6 ml EDV(sp4-el): 94.6 ml LVAs ap4: 15.7 cm2 LVLs ap4: 6.1 cm ESV(MOD-sp4): 34.2 ml ESV(sp4-el): 34.1 ml EF(MOD-sp4): 63.8 % EF(sp4-el): 64.0 % SV(sp4-el): 60.6 ml LA A4 area: 19.8 cm2 LA dimension(2D): 4.8 cm RA A4 area: 14.3 cm2 TAPSE: 1.9 cm Time Measurements MV dec time: 0.22 sec Doppler Measurements & Calculations MV E max carl: 108.0 cm/sec Lat Peak E' Carl: 10.0 cm/sec Med Peak E' Carl: 6.4 cm/sec MV A max carl: 91.2 cm/sec E/E' lat: 10.8 E/E' med: 16.8 MV E/A: 1.2 Ao V2 max: 188.5 cm/sec LV V1 max: 134.8 cm/sec MV dec slope: 486.4 cm/sec2 Ao max P.2 mmHg LV V1 max P.3 mmHg Ao V2 mean: 128.9 cm/sec LV V1 mean P.4 mmHg Ao mean P.6 mmHg LV V1 mean: 99.6 cm/sec Ao V2 VTI: 40.8 cm LV V1 VTI: 30.3 cm AV (velocity ratio): 0.74 PA V2 max: 113.9 cm/sec PI end-d carl: 157.0 cm/sec TR max carl: 257.9 cm/sec TR max P.6 mmHg ECHO/Echo Complete Interpretation Summary The left ventricular ejection fraction is 60 %. Stage 1 diastolic dysfunction. Mild (1+) mitral valve insufficiency. The left atrium is moderately enlarged. Aneurysmal atrial septum. Ordering Physician: Barbie Cross Referring Physician: David Tse Performed By: Yoana Ross, LORETTA, RVT
[2025-07-16 15:52] LABS: Anion Gap 12 (5-15); BUN 14 mg/dL (4-19); BUN/Creat Ratio 22.1 RATIO (10-20); Calcium,Total 7.8 mg/dL (7.6-11.0); Carbon Dioxide 15.6 mmol/L (21.0-32.0); Chloride 103 mmol/L (98-108); Estimated Creatinine Clearance 128.22 ml/min (50-250); Glucose 101 mg/dL (70-99); Potassium 3.8 mmol/L (3.3-5.1)
[2025-07-16] MEDS: 0.9% Normal Saline (1000mL) 1,000 ML 999 ML IV (16:26)
[2025-07-16 17:44] LABS: Troponin T High Sensitivity 21 ng/L (<=14)
[2025-07-16 17:55] LABS: Creatinine, Urine (random) 173.00 mg/dL (28.00-217.00)
[2025-07-16 17:57] LABS: Urea Nitrogen, Urine 968 mg/dL (NO RANGE EST.)
[2025-07-16 18:33] LABS: Osmolality, Urine 624 mOsm/KG
[2025-07-16 18:34] LABS: Osmolality, Serum 275 mOsm/KG (275-295)
[2025-07-16] MEDS: 0.9% Saline Lock 10 ML Syringe IV (19:56)
[2025-07-16 21:30] LABS: Anion Gap 10 (5-15); BUN 13 mg/dL (4-19); BUN/Creat Ratio 21.9 RATIO (10-20); Calcium,Total 7.9 mg/dL (7.6-11.0); Carbon Dioxide 15.8 mmol/L (21.0-32.0); Chloride 105 mmol/L (98-108); Estimated Creatinine Clearance 129.01 ml/min (50-250); Glucose 105 mg/dL (70-99); Potassium 3.4 mmol/L (3.3-5.1)
[2025-07-17 03:12] VITALS: BP 96/53; PULSE 79; RESP 18; TEMP 36.7; O2SAT 99
[2025-07-17 03:57] LABS: Hematocrit 25.2 % (37-47); Hemoglobin 8.1 g/dL (12.0-15.0); Mean Corp Hgb Conc 32.1 g/dL (32-36); Mean Corpuscular Volume 98.1 fL (81-99); Mean Platelet Vol. 11.1 fl (6.2-12.0); POSITIVE COUNT YES; POSITIVE DIFFERENTIAL YES; POSITIVE MORPHOLOGY YES; Platelet Count 88 K/mm3 (150-450); RBC Distribution Width CV 15.9 % (11.6-14.6); RBC Distribution Width SD 57.8 fl (35.1-43.9); Red Blood Count 2.57 M/mm3 (4.2-5.4); White Blood Count 4.6 K/mm3 (4.4-11.0)
[2025-07-17 04:15] LABS: Differential Indicated MANUAL DIFF
[2025-07-17 05:00] LABS: Anion Gap 11 (5-15); BUN 13 mg/dL (4-19); BUN/Creat Ratio 27.1 RATIO (10-20); Calcium,Total 8.1 mg/dL (7.6-11.0); Carbon Dioxide 16.2 mmol/L (21.0-32.0); Chloride 105 mmol/L (98-108); Estimated Creatinine Clearance 154.81 ml/min (50-250); Glucose 95 mg/dL (70-99); Magnesium 2.1 mg/dL (1.5-2.2); Potassium 3.5 mmol/L (3.3-5.1)
[2025-07-17 05:06] LABS: Neutrophil-Segmented 86 % (47-70); Total Cells Counted 100 (MANUAL DIFF)
[2025-07-17] MEDS: Piperacil/Tazobactam 3.375 GM in 0.9% Normal Saline (50mL MB+) 50 ML IV ×3 (05:10→20:50)
[2025-07-17] MEDS: 0.9% Normal Saline (250mL Bag) 250 ML 15 ML IV (05:11)
[2025-07-17 05:12] LABS: Dohle Bodies 1+; Toxic Granulation 1+
[2025-07-17 05:14] LABS: Anisocytosis 1+; Tear Drop Cell 1+
[2025-07-17 09:00] VITALS: BP 99/66; PULSE 75; RESP 18; TEMP 36.8; O2SAT 99
[2025-07-17 11:02] LABS: Anion Gap 11 (5-15); BUN 13 mg/dL (4-19); BUN/Creat Ratio 31.5 RATIO (10-20); Calcium,Total 8.1 mg/dL (7.6-11.0); Carbon Dioxide 16.4 mmol/L (21.0-32.0); Chloride 105 mmol/L (98-108); Estimated Creatinine Clearance 188.79 ml/min (50-250); Glucose 79 mg/dL (70-99); Potassium 3.6 mmol/L (3.3-5.1)
--- NOTE | 2025-07-17 13:30 | CASEMGMT ---
RN CM Face to Face with patient for initial transition planning/care coordination assessment. RN CM introduced self and role at [facility]. Patient lying in bed, alert and oriented. Patient willing to participate in assessment and is able to answer all questions appropriately. Care providers, pharmacy, and demographics verified. Strata:2 PCP: Carmencita Specialists: Cori, oncologist; Marilu, pack press operator; Preferred Pharmacy: [facility] Retail Insurance: [place] Prescription Benefit: yes Living Will/HPOA: none LNOK: Living Arrangements: Patient lives with in a split story home with 5-8 steps and railing to enter the home. Patient states she is independent Transportation: self, DME/HHC: Patient has shower chair and wheelchair at home. No previous HHC or SNF. Patient wishes to discharge home, denies need for home health at this time. Patient states she has no further needs or concerns at this time. CM to follow for discharge planning needs that may arise. Disposition Plan: Patient to discharge home with family support and follow-up plans in place. Roxane MOSQUERA, RN, CM
[2025-07-17 14:16] VITALS: BP 93/54; PULSE 78; RESP 18; TEMP 36.7; O2SAT 99
[2025-07-17] MEDS: 0.9% Saline Lock 10 ML Syringe IV (14:24)
--- NOTE | 2025-07-17 15:03 | CHAPLAIN ---
Type of Pastoral Visit _x__ Initial Visit ___ Follow-up Visit ___ On-call Visit ___ General Patient Visit ___ Spiritual Assessment ___ Family Conference ___ Bereavement ___ Rapid Response ___ Code Blue ___ Other (describe below) Pastoral Care Referral From _x__ Patient ___ Family ___ Nurse ___ Physician ___ Vegetable Buncher ___ Staff Trainer ___ Other (describe below) Sacrament/Intervention _x__ Active listening ___ Anointing ___ Faith ___ Bereavement ___ Communion _x__ Cassidy exploration ___ _x__ Life review _x__ Prayer ___ Reconciliation ___ Sacrament of Sick _x__ Supportive presence ___ Wedding ___ Other (describe below) Pastoral Comments patient is welcoming, is dress in her own nightgown, and acknowledges that she can be stubborn and 'not a nahum'; pt has family and she is greatly disappointed to be missing her granddaughter's volleyball game tonight; pt explains her chemo treatments and what effect they have had; pt gets tearful at times when talking about her family and apologizes often; pt says I never get emotional; affirmation and supportive words are given to her; pt opens up more about her disease, the fear of 'not being around for my family', not worrying 'about me'; pt refers to the nondenominational example of her grandmother and a great aunt who have inspired her in life; pt is disconnected from a mandaeism through disappointment in the operator catalyst concentration of previous confucianist; pt would like to reconnect someday with a mandaeism but for now she worships on her own; pt readily welcomes prayers for her pain and for her family
--- NOTE | 2025-07-17 15:41 | PN_ITS ---
Subjective Subjective Patient seen and examined with her nurse by her bedside. She was admitted with complaint of generalized weakness. 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 She came in with a complaint of weakness. Urinalysis showed evidence of UTI. She says she feels a bit better today. She had no active complaints at time of my review. Review systems otherwise negative. Objective Data Objective Data Vital Signs: Vital Signs Temp Pulse Resp BP Pulse Ox O2 Del Method 98.1 F 78 18 93/54 L 99 Room Air 07/17/25 14:16 07/17/25 14:16 07/17/25 14:16 07/17/25 14:16 07/17/25 14:16 07/17/25 14:16 Oxygen Delivery Method Room Air Weight: 216 lb 7.903 oz Body Mass Index (BMI) 33.9 Intake & Output: Intake and Output for Last 24 Hours 07/15/25 07/16/25 07/17/25 23:59 23:59 23:59 Intake Total 3080 / 3280 500 / 500 Output Total 550 / 550 Balance 3080 / 3030 -50 / -50 Lab / Micro Data 07/17/25 03:00 07/17/25 08:38 Labs: Laboratory Results - last 24 hr 07/16/25 15:19: Sodium 130 L, Potassium 3.8, Chloride 103, Carbon Dioxide 15.6 L , Anion Gap 12, BUN 14, Creatinine 0.61 L, Estim Creat Clear Calc 128.22, Est GFR (MDRD) Non-Af 106, BUN/Creatinine Ratio 22.1 H, Glucose 101 H, Serum Osmolality 275, Calcium 7.8, Troponin T High Sens 21 H 07/16/25 16:22: Urine Osmolality 624, Ur Random Sodium < 20, Urine Creatinine 173.00, Urine Potassium 83.2, Urine Chloride 20, Urine Urea Nitrogen 968 07/16/25 20:39: Sodium 131 L, Potassium 3.4, Chloride 105, Carbon Dioxide 15.8 L , Anion Gap 10, BUN 13, Creatinine 0.60 L, Estim Creat Clear Calc 129.01, Est GFR (MDRD) Non-Af 106, BUN/Creatinine Ratio 21.9 H, Glucose 105 H, Calcium 7.9 07/17/25 03:00: WBC 4.6, RBC 2.57 L, Hgb 8.1 L, Hct 25.2 L, MCV 98.1, MCH 31.5, MCHC 32.1, RDW Std Deviation 57.8 H, RDW Coeff of Estella 15.9 H, Plt Count 88 L, MPV 11.1, Neut % (Auto) Not Reportable, Absolute Neuts (auto) 4.0, Absolute Lymphs (auto) 0.41 L, Total Counted 100, Neutrophils % (Manual) 86 H, L ymphocytes % (Manual) 9 L, Eosinophils % (Manual) 4, Basophils % (Manual) 1, Toxic Granulation 1+, Dohle Bodies 1+, Platelet Estimate MOD DEC, Anisocytosis 1+, Tear Drop Cells 1+, Ovalocytes 1+, Sodium 132 L, Potassium 3.5, Chloride 105, Carbon Dioxide 16.2 L, Anion Gap 11, BUN 13, Creatinine 0.50 L, Estim Creat Clear Calc 154.81, Est GFR (MDRD) Non-Af 112, BUN/Creatinine Ratio 27.1 H, Glucose 95, Calcium 8.1, Magnesium 2.1, TSH 5.230 H 07/17/25 08:38: Sodium 132 L, Potassium 3.6, Chloride 105, Carbon Dioxide 16.4 L , Anion Gap 11, BUN 13, Creatinine 0.41 L, Estim Creat Clear Calc 188.79, Est GFR (MDRD) Non-Af 117, BUN/Creatinine Ratio 31.5 H, Glucose 79, Calcium 8.1 Micro: Microbiology 07/16/25 15:30 Mucosa - Nasopharyngeal Respiratory Panel (PCR) - Final 07/16/25 10:55 Mucosa - Nose SARS-CoV-2, Influenza & RSV (PCR) - Final Radiography Diagnostic Testing: Radiology Impression Echocardiogram 07/16/25 14:47 Interpretation Summary The left ventricular ejection fraction is 60 %. Stage 1 diastolic dysfunction. Mild (1+) mitral valve insufficiency. The left atrium is moderately enlarged. Aneurysmal atrial septum. Ordering Physician: Barbie Cross Referring Physician: David Tse Performed By: Yoana Ross, RDCS, RVT Physical Exam Const alert, oriented x3 and no apparent distress General Appearance: cooperative HEENT normocephalic, head/scalp atraumatic, moist oral mucous membranes and oropharynx normal Eyes EOMs intact bilaterally Neck no lymphadenopathy and supple Lymph Lymphatic: no lymphedema noted Resp normal respiratory effort, normal air movement and clear to auscultation bilaterally Cardio regular rate, regular rhythm, S1 normal heart sound, S2 normal heart sound and no murmurs GI normal to inspection, nondistended, normoactive bowel sounds, soft to palpation, non-tender and non-distended Extremity normal capillary refill, no clubbing, cyanosis or edema and no calf tenderness General Extremity: no tenderness to palpation of joints or extremities Skin Skin Narrative: alopecia from chemotherapy General Skin Exam: no breakdown Neuro CN's II-XII intact bilaterally, no focal motor deficits and no sensory deficits noted Motor Exam: general weakness Psych thought process normal and cooperative Appearance: appropriate Assessment & Plan Assessment/Plan (1) UTI (urinary tract infection): PLAN: Plan #Debility and weakness due to UTI * Admitted with a complaint of weakness. WBC was not elevated. * Urinalysis does show evidence of UTI. On IV antibiotics. * Await urine cultures. #Hypotension: Blood pressure has been low in the 90s systolic. She is currently asymptomatic. hydrate gently with iVF and consider midodrine also if BP remains low due to elevated BNP #Hyponatremia: #History of leiomyosarcoma: S/p left tube nephrectomy and omentectomy. Follows with oncology and on chemotherapy. #Elevated proBNP * Patient admits to a complaint of cough. proBNP was also found to be elevated. Clinically she does not look fluid overloaded though. * 2D echo ordered showed EF of 60% with stage I diastolic dysfunction and moderately enlarged left atrium as well as aneurysmal atrial septum * pro BNP was 4642. * not diursed with iV lasix due to hypotension. * #ELevated TSH: TSH was 5.23. will check free t4 and T3. #History of CAD s/p stents: Not compliant with aspirin or statin. Counseled to be compliant with these. #History of nicotine dependence: Counseled to quit. Nicotine patch as needed DVT prophylaxis: Lovenox Charges/Coding Visit Charges Inpatient E&M: 50058 Subs Hosp L2
[2025-07-17 17:14] LABS: Free T3 1.9 pg/mL (2.18-3.98)
[2025-07-17] MEDS: 0.9% Normal Saline (1000mL) 1,000 ML 100 ML IV (18:26)
[2025-07-17 20:58] VITALS: BP 104/52; PULSE 72; RESP 18; TEMP 36.7; O2SAT 98
[2025-07-18 02:00] VITALS: BP 104/55; PULSE 75; RESP 18; TEMP 36.4; O2SAT 96
[2025-07-18] MEDS: Piperacil/Tazobactam 3.375 GM in 0.9% Normal Saline (50mL MB+) 50 ML IV (05:18)
[2025-07-18 09:03] VITALS: BP 98/57; PULSE 66; RESP 16; TEMP 36.6; O2SAT 100
[2025-07-18 09:34] LABS: Hematocrit 28.1 % (37-47); Hemoglobin 9.0 g/dL (12.0-15.0); Immature Granulocytes Count 0.000 X10^3/uL (0.0-0.0); Mean Corp Hgb Conc 32.0 g/dL (32-36); Mean Corpuscular Volume 97.6 fL (81-99); Mean Platelet Vol. 11.0 fl (6.2-12.0); NRBC Flagged by Analyzer 0 % (0-5); POSITIVE COUNT YES; Platelet Count 79 K/mm3 (150-450); RBC Distribution Width CV 15.5 % (11.6-14.6); RBC Distribution Width SD 55.8 fl (35.1-43.9); Red Blood Count 2.88 M/mm3 (4.2-5.4); White Blood Count 2.4 K/mm3 (4.4-11.0)
[2025-07-18 10:29] LABS: Anion Gap 10 (5-15); BUN 11 mg/dL (4-19); BUN/Creat Ratio 29.0 RATIO (10-20); Calcium,Total 8.0 mg/dL (7.6-11.0); Carbon Dioxide 19.2 mmol/L (21.0-32.0); Chloride 108 mmol/L (98-108); Estimated Creatinine Clearance 209.20 ml/min (50-250); Glucose 92 mg/dL (70-99); Potassium 3.5 mmol/L (3.3-5.1)
[2025-07-18 13:12] VITALS: BP 113/72; PULSE 75; RESP 16; TEMP 36.9; O2SAT 100
--- NOTE | 2025-07-18 13:48 | DS.PCM_ITS ---
Providers Date of Admission: 07/16/25 Date of Discharge: 07/18/25 Primary Care Physician: Dr. David Tse MD Reason For Visit: GENERALIZED WEAKNESS AND UTI, HYPONATREMIA Diagnosis Discharge Diagnosis (1) UTI (urinary tract infection): Status: Acute Code(s): N39.0 - Urinary tract infection, site not specified Plan #Debility and weakness due to UTI * Admitted with a complaint of weakness. WBC was not elevated. * Urinalysis does show evidence of UTI. On IV antibiotics. * Await urine cultures. #Hypotension: Blood pressure has been low in the 90s systolic. She is currently asymptomatic. hydrate gently with iVF and consider midodrine also if BP remains low due to elevated BNP #Hyponatremia: #History of leiomyosarcoma: S/p left tube nephrectomy and omentectomy. Follows with oncology and on chemotherapy. #Elevated proBNP * Patient admits to a complaint of cough. proBNP was also found to be elevated. Clinically she does not look fluid overloaded though. * 2D echo ordered showed EF of 60% with stage I diastolic dysfunction and moderately enlarged left atrium as well as aneurysmal atrial septum * pro BNP was 4642. * not diursed with iV lasix due to hypotension. * #ELevated TSH: TSH was 5.23. will check free t4 and T3. #History of CAD s/p stents: Not compliant with aspirin or statin. Counseled to be compliant with these. #History of nicotine dependence: Counseled to quit. Nicotine patch as needed DVT prophylaxis: Lovenox Medications at Discharge Home Medications aspirin 81 mg chewable tablet 81 mg PO DAILY@0800 hx of mi 06/09/19 atorvastatin 80 mg tablet 80 mg PO QHS cholesterol #90 tabs 11/29/23 cefdinir 300 mg capsule 300 mg PO BID #10 caps 07/18/25 Hospital Course Operations None Procedures None Summary of Care Provided Minutes Spent on Discharge: 45 Hospital Course: Patient is a 54-year-old female with a past medical history of ovarian and uterine leiomyosarcoma s/p exploratory laparotomy with left oophorectomy and omentectomy as well as removal of pelvic mass in January 2025 was admitted to the ED on 07/16/2025 with a complaint of generalized weakness. Patient was undergoing chemotherapy for the cancer. She denied any fever, any chills, any nausea or vomiting though she does admit to some urinary incontinence both of which were typical after her chemo. She says she was feeling very tired and went to bed and then went to the bathroom around 2 AM but was subsequently unable to get off the toilet. She therefore crawled into her room and slept on the floor. She had had a history of runny nose and a wet cough as well which she attributed to allergies. On admission temperature was 102.3 Fahrenheit with heart rate of 107 and blood pressure 104/68. Respiratory rate was 18 and she was saturating at 100% on room air. WBC was 8.8 and hemoglobin was 10.6 with platelets of 121. Sodium was 128. Bicarb was 18.2 and anion gap was 9. Creatinine was 0.63. proBNP was 4600. Chest x-ray showed no acute cardiopulmonary pathology. Urinalysis did show evidence of UTI. She was therefore admitted and managed for debility and weakness suspected to be UTI as well as hyponatremia. proBNP was elevated as stated but she did not appear to be fluid overloaded. TSH was normal. She was started on IV antibiotics. Blood pressure was running low so she was not diuresed with IV Lasix. She was further very gently hydrated with IV fluids. Urine cultures came back growing mixed gram-positive and gram- negative organisms. Her hypotension resolved and patient felt much better. Her white cell count trended downwards and absolute neutrophil count was 1.5 with WBC of 2.4. I discussed with her oncologist Dr. Persaud who recommended that patient could still be discharged home as this was likely the chemotherapy is not taking effect. Her last chemotherapy session had been a week prior to her day of discharge. She is follow-up with her oncologist as scheduled. She was discharged on p.o. cefdinir 300 mg twice daily for 5 days. She is follow-up with her primary care doctor within 1 to 2 weeks. Patient seen and examined prior to discharge. She felt much better and had no complaints. She had an uneventful night and review of systems otherwise negative. Labs and vitals reviewed. Home medication reviewed and reconciled. Physical Exam Const alert, oriented x3 and no apparent distress General Appearance: cooperative and comfortable HEENT normocephalic, head/scalp atraumatic, hearing grossly normal bilaterally, moist oral mucous membranes and oropharynx normal Mouth: oral and palatal mucosa normal Eyes PERRL, EOMs intact bilaterally and conjunctivae normal Neck supple Lymph Lymphatic: no lymphedema noted Resp normal respiratory effort, normal air movement and clear to auscultation bilaterally Cardio regular rate, regular rhythm, S1 normal heart sound, S2 normal heart sound and no murmurs GI normal to inspection, nondistended, normoactive bowel sounds, soft to palpation, non-tender and non-distended Extremity normal to inspection, full ROM, normal capillary refill, no clubbing, cyanosis or edema and no calf tenderness General Extremity: no tenderness to palpation of joints or extremities Skin no rashes or lesions noted Skin Narrative: alopecia from chemotherapy General Skin Exam: no breakdown Neuro oriented x3, CN's II-XII intact bilaterally, moves all extremities, no focal motor deficits and no sensory deficits noted Motor Exam: general weakness Psych thought process normal and cooperative Appearance: appropriate Weight / BMI Weight Weight: 216 lb 7.903 oz Body Mass Index (BMI) 33.9 ABG / Lab / Microbiology Data 07/18/25 08:45 07/18/25 08:45 Laboratory: Laboratory Results - last 24 hr 07/17/25 08:38: Free T4 1.00, Free T3 pg/dL 1.9 L 07/18/25 08:45: WBC 2.4 L, RBC 2.88 L, Hgb 9.0 L, Hct 28.1 L, MCV 97.6, MCH 31.3, MCHC 32.0, RDW Std Deviation 55.8 H, RDW Coeff of Estella 15.5 H, Plt Count 79 L, MPV 11.0, Immature Gran % (Auto) 0.000, Neut % (Auto) 61.6, Lymph % (Auto) 27.0, Edgar % (Auto) 3.8, Eos % (Auto) 5.9 H, Baso % (Auto) 1.7 H, Absolute Neuts (auto) 1.5 L, Absolute Lymphs (auto) 0.64 L, Nucleated RBC % 0, Sodium 137, Potassium 3.5, Chloride 108, Carbon Dioxide 19.2 L, Anion Gap 10, BUN 11, C reatinine 0.37 L, Estim Creat Clear Calc 209.20, Est GFR (MDRD) Non-Af 120, B UN/Creatinine Ratio 29.0 H, Glucose 92, Calcium 8.0 Microbiology: Microbiology 07/16/25 10:53 Blood Culture (Wb) - Anticubital Right Blood Culture - Preliminary No growth in 48 hours. 07/16/25 10:30 Blood Culture (Wb) - Anticubital Left Blood Culture - Preliminary No growth in 48 hours. 07/16/25 11:05 Urine, Clean Catch Urine Culture - Final Mixed Gram Pos & Gram Neg Org 07/16/25 15:30 Mucosa - Nasopharyngeal Respiratory Panel (PCR) - Final 07/16/25 10:55 Mucosa - Nose SARS-CoV-2, Influenza & RSV (PCR) - Final D/C Instructions Discharge Activity: Return to Normal Activity Weight Bearing Status: Weight bearing as tolerated Call your doctor if you observe: Fever of 101 or Higher, Shortness of breath, Dizziness, Swelling in the ankles and Chest pain DC O2, CPAP, BIPAP Needs Home O2 Discharge instructions: No DC home with Oxygen: No Meaningful Use Info Meaningful Use Meaningful Use Diagnoses (Choose all that apply): None applicable Discharge Plan Admission Admit Date/Time: 07/16/25 13:46 Primary Reason for Your Visit: UTI Attending Provider: Kelli Sung Primary Care Provider: David Tse Consulting Providers: Barbie Cross Instructions Patient Instructions: ED Cystitis Female Adult Discharge Orders/Prescriptions Prescriptions: New cefdinir 300 mg capsule 300 mg PO BID Qty: 10 0RF Continued atorvastatin 80 mg tablet 80 mg PO QHS Qty: 90 3RF aspirin 81 MG tablet,chewable 81 mg PO DAILY@0800 Referrals / Follow Up: Imani Persaud MD [Med Staff - Active Staff] - 07/18/25 12:00 pm (Keep Appointment that is scheduled 07/18/2025 at 12:00pm) David Tse MD [Primary Care Provider] - 07/24/25 10:30 am (Appointment with India Clifton) Disposition Disposition (needs filled in before D/C Order can be placed): Home, Self Care Charges/Coding Visit Charges Inpatient E&M: 80168 Disch Hosp >30min
--- NOTE | 2025-07-18 13:48 | DCINST_ITS ---
Discharge Instructions DC O2, CPAP, BIPAP needs Home O2 Discharge instructions: No Dressing / Incision Discharge Activity: Return to Normal Activity Weight Bearing Status: Weight bearing as tolerated Dressing / Incision Call your doctor if you observe: Fever of 101 or Higher, Shortness of breath, Dizziness, Swelling in the ankles and Chest pain Follow Up Care Test Results: Test results from this visit will be discussed in further detail at your follow- up appointment, if applicable. Discharge Plan Admission Admit Date/Time: 07/16/25 13:46 Primary Reason for Your Visit: UTI Attending Provider: Kelli Sung Primary Care Provider: David Tse Consulting Providers: Barbie Cross Instructions Patient Instructions: ED Cystitis Female Adult Discharge Orders/Prescriptions Prescriptions: New cefdinir 300 mg capsule 300 mg PO BID Qty: 10 0RF Continued atorvastatin 80 mg tablet 80 mg PO QHS Qty: 90 3RF aspirin 81 MG tablet,chewable 81 mg PO DAILY@0800 Referrals / Follow Up: Imani Persaud MD [Med Staff - Active Staff] - Within 1 Week David Tse MD [Primary Care Provider] - Within 1 Week Disposition Disposition (needs filled in before D/C Order can be placed): Home, Self Care
--- NOTE | 2025-07-18 14:53 | CASEMGMT ---
Patient has order for discharge. RN CM in to discuss needs at discharge. Patient denies needs or help at discharge, at bedside. Patient states she ordered toilet seat rises and should be delivered today. Patient denied further needs or concerns. Patient had no further questions or cocnerns.
--- NOTE | 2025-07-18 15:09 | PHA.DC.MC.R ---
Pharmacy [facility] Counseling Pharmacy Service has performed discharge medication reconciliation and counseling for this patient. Counseled on via telephone due to contact precautions. 1. CEFDINIR 300MG PO BID X 5 DAYS The patient's discharge medication list was reviewed for discrepancies and discrepancies were resolved. The patient was counseled on the following discharge medications and changes in medications for homegoing were reviewed. The Reason for Use, instructions for use, and potential side effects were reviewed for all new medications. The patient's questions regarding all of their medications were answered. The patient was able to verbally demonstrate an understanding of their discharge medications. Medications at Discharge Home Medications aspirin 81 mg chewable tablet 81 mg PO DAILY@0800 hx of mi 06/09/19 atorvastatin 80 mg tablet 80 mg PO QHS cholesterol #90 tabs 11/29/23 cefdinir 300 mg capsule 300 mg PO BID #10 caps 07/18/25
== END 2025-07-18 15:29 | disposition home or self-care (01) | DRG 690 ==
LOC: ED 13:23 → PCU 13:49
PROVIDERS: Admitting Provider Internal Medicine; Emergency Provider Surgery; PCP Family Medicine; Visit Provider Student in an Organized Health Care Education/Training Program
DX: N39.0 Urinary tract infection, site not specified (principal); C49.5 Malignant neoplasm of connective and soft tissue of pelvis; E87.1 Hypo-osmolality and hyponatremia; D69.6 Thrombocytopenia, unspecified; I10 Essential (primary) hypertension; E86.0 Dehydration; I25.10 Atherosclerotic heart disease of native coronary artery without angina pectoris; E78.00 Pure hypercholesterolemia, unspecified; I25.2 Old myocardial infarction; F17.210 Nicotine dependence, cigarettes, uncomplicated; I95.9 Hypotension, unspecified; R79.89 Other specified abnormal findings of blood chemistry; R53.81 Other malaise; Z11.52 Encounter for screening for COVID-19; Z79.82 Long term (current) use of aspirin; Z95.5 Presence of coronary angioplasty implant and graft; Z90.5 Acquired absence of kidney; R32 Unspecified urinary incontinence; Z91.148 Patient's other noncompliance with medication regimen for other reason; T39.016A Underdosing of aspirin, initial encounter; T46.6X6A Underdosing of antihyperlipidemic and antiarteriosclerotic drugs, initial encounter; Z79.899 Other long term (current) drug therapy
CPT/HCPCS: 36415; 71046; 80048; 80053; 81001; 82436; 82550; 82570; 83605; 83735; 83880; 83930; 83935; 84133; 84300; 84439; 84443; 84481; 84484; 84540; 85025; 85610; 85730; 87040; 87086; 87088; 87631; 87633; 93005; 93306; 97161; 97166; 97802; 99285; 99406; A4216

== ENCOUNTER → 2025-08-09 | Outpatient (CLI) | payer BC, SELFPAY ==
--- NOTE | 2025-08-09 12:38 | VDLE_ITS ---
Reason For Study Reason For Study: Bilateral leg swelling RIGHT LEFT GSV is normal. GSV is normal. CFV is compressible, spontaneous, phasic, competent CFV is compressible, spontaneous, phasic, competent, and demonstrates normal augmentation. and demonstrates normal augmentation. FV is compressible, spontaneous, phasic, competent FV is compressible, spontaneous, phasic, competent and demonstrates normal augmentation. and demonstrates normal augmentation. POP V is compressible, spontaneous, phasic, competent POP V is compressible, spontaneous, phasic, competent and demonstrates normal augmentation. and demonstrates normal augmentation. T/P Trunk is compressible. T/P Trunk is compressible. PTV is compressible. PTV is compressible. RT PerV is compressible. LT PerV is compressible. Procedure This is a venous duplex using B-mode, color flow and spectral Doppler. Exam performed in department. A preliminary report was called and/or faxed to [facility]. VL/Venous Duplex US - Ervin Extrem Interpretation Summary Deep veins of the bilateral lower extremities are patent and compressible segme ntally. There is no evidence of bilateral lower extremity deep vein thrombosis. The bilateral great saphenous veins appea r patent and compressible segmentally. Ordering Physician: Delmis Corral Referring Physician: David Tse Performed By: Roxane Metzger RVT
--- NOTE | 2025-08-09 14:30 | CT_ITS ---
PROCEDURE: CT CHEST, ABD, PEL W/CONTRAST 08/09/2025 REASON FOR EXAM: RESTAGING SOFT TISSUE SARCOMA TECHNIQUE: Chest, abdomen and pelvis CT with intravenous contrast. Coronal and Sagittal reconstruction series were provided. One or more dose reduction techniques were used (e.g., Automated exposure control, adjustment of the mA and/or kV according to patient size, use of iterative reconstruction technique. PATIENT PREPARATION: Per protocol ORAL CONTRAST TYPE: Readi-Cat AMOUNT: 100 mL CONTRAST: Isovue 370 VOLUME: 100mL RADIATION DOSE SUMMARY: CTDlvol: 57.53 mGy DLP: 1890.89 mGycm COMPARISON: None FINDINGS: CT CHEST: Lung windows show lungs to be normally expanded. No organized infiltrate effusion or suspicious noncalcified mass or nodule. Soft tissue windows show a normal-appearing thyroid gland. No suspicious axillary, mediastinal or perihilar adenopathy. The thoracic aorta tapers normally, calcified coronary vessels are noted. There is a small hiatal hernia with thickening of the distal esophagus suggesting reflux esophagitis. CT ABDOMEN/PELVIS: Liver: Normal size. No mass. Gallbladder: Surgically absent. Spleen: Normal size. Pancreas: Normal size without evidence of mass surrounding inflammation or ductal dilation. Adrenals: Unremarkable Kidneys: The right kidney is free of obstructive uropathy or suspicious solid renal lesion, there are multiple nonobstructing renal stones largest measures 7 mm. The left kidney shows dilatation of the calices and of the left renal pelvis which is due to a 1.5 cm stone in the left UPJ. The left ureter beyond the pelvis is of normal course and caliber. There are multiple nonobstructing left renal stones measuring up to 4 mm, no solid mass lesion. Bladder: Unremarkable Reproductive Organs: Surgically absent Bowel: No evidence of obstruction or acute inflammation. Appendix: Normal appendix seen on coronal recon images 54 through 64 Lymph nodes: no suspicious mesenteric or retroperitoneal adenopathy Vasculature: Mild diffuse atherosclerotic calcifications are noted. Peritoneum / Retroperitoneum: No free fluid or air Bones: Degenerative bony changes Postsurgical changes in the anterior abdomen without subcutaneous abscess or evidence of cellulitis CT/CT Chest, Abd, Pel w/Contrast IMPRESSION: There is a 1.5 cm stone in the left renal pelvis causing dilatation of the left renal pelvis and of the left renal calices, there is associated induration of the perinephric fat in the left kidney Bilateral nonobstructing nephrolithiasis No free intraperitoneal fluid, air, or suspicious adenopathy, normal appendix v isualized No acute pulmonary process, no suspicious noncalcified mass or nodule No suspicious thoracic adenopathy Small hiatal hernia Degenerative bony changes Reading Location: [id number]
== END | disposition home or self-care (01) ==
LOC: CT 12:36
PROVIDERS: PCP Family Medicine; Referring Provider Internal Medicine Hematology & Oncology; Visit Provider Internal Medicine Hematology & Oncology
DX: C49.5 Malignant neoplasm of connective and soft tissue of pelvis (principal); R60.0 Localized edema; Z91.89 Other specified personal risk factors, not elsewhere classified; M79.89 Other specified soft tissue disorders
CPT/HCPCS: 71260; 74177; 93970; Q9967

== ENCOUNTER 2025-09-28 06:49 | Day surgery (SDC) | payer BC, SELFPAY ==
--- NOTE | 2025-09-21 22:18 | PAT.ANE_ITS ---
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 When Was Last Pacemaker Check QUESTION #4 FULL TEXT: You/Your Family Experience fever (hyperthermia) with Anesthesia Last Oral Intake Last Oral intake: Last Oral Intake NPO since Meds taken in AM with sips of water? 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 - pelletising extruder operator: PONV - pelletising extruder operator Female Yes 09/21/25 13:43 HX of Motion Sickness No 09/21/25 13:43 HX of N/V After Surgery No 09/21/25 13:43 Non-Smoker No 09/21/25 13:43 Duration of Surgery greater No 09/21/25 13:43 than 60 minutes Number of Risk Factors 1 09/21/25 13:43 PONV Score Low Risk 09/21/25 13:43 Height & Weight Height & Weight: Anesthesia: Height & Weight Height 5 ft 7 in 09/13/25 15:49 Respiratory Assessment Respiratory Assessment - pelletising extruder operator: Respiratory Tract Infection Hx - pelletising extruder operator Hx Respiratory Tract Infection No 09/21/25 13:43 STOP Sleep Apnea STOP Sleep Apnea - pelletising extruder operator: STOP Sleep Apnea - pelletising extruder operator Hx Hypertension No 09/21/25 13:43 Hx Sleep Apnea No 09/21/25 13:43 CPAP BIPAP Do you snore loudly (louder No 09/21/25 13:43 than talking or can be heard Do you often feel tired/ No 09/21/25 13:43 fatigued/ sleepy during daytime? Has anyone observed you stop No 09/21/25 13:43 breathing during sleep? STOP Results Negative 09/21/25 13:43 QUESTION #5 FULL TEXT : Do you snore loudly (louder than talking or can be heard through closed doors)? 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 Specify any problems Hx of Preganancy in last 3 No 09/21/25 13:43 Months Nurse Filling Out Transfusion [email or web address] 09/21/25 13:43 & Questions: Date: 09/21/25 09/21/25 13:43 Time: 13:45 09/21/25 13:43 Patient unable to answer at this time (ie. 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 Hypokalemia Encounter for chemotherapy management Severe neutropenia Anemia Dark urine Oral candidiasis Encounter for education Cancer Back pain Shortness of breath on exertion Leg cramps History of stress test Primary leiomyosarcoma of pelvis Anemia due to chronic blood loss Menorrhagia Wears dentures High cholesterol Loss of consciousness Gastric reflux Smoker Cardiology follow-up encounter History of echocardiogram Cardiac murmur History of non-ST elevation myocardial infarction (NSTEMI) (06/2014) Essential (primary) hypertension Atherosclerosis of coronary artery without angina pectoris Kidney stones Home Medications Medication Instructions Recorded Last Taken Type aspirin 81 mg chewable tablet 81 mg PO DAILY@0800 hx o f mi 06/09/19 03/28/25 History atorvastatin 80 mg tablet 80 mg PO QHS cholesterol #90 tabs 11/29/23 Unknown Rx letrozole 2.5 mg tablet 2.5 mg PO QDAY #30 tabs 07/17 04/08 Unknown Rx pazopanib 200 mg tablet 400 mg PO .qd 09/21/25 Unkno wn History Allergy/AdvReac Type Severity Reaction Status Date / Time No Known Allergies Allergy Verified 09/21/25 13:31 Family History Father Kidney disease Aunt Cancer paternal Other Heart disease Surgical History H/O pelvic mass (~01/26/25) History of cardiac catheterization Hx of oral surgery Hx laparoscopic cholecystectomy Hx of left cataract extraction History of hysterectomy Cataract extraction status of right eye Hx of tubal ligation History of coronary artery stent placement (03/31/21) Social History household members: spouse housing: house Smoking Status: Current every day smoker tobacco type: cigarettes Tobacco: How many years used: 39 quit status: considering quitting alcohol intake: never substance use type: does not use caffeine: Yes Type: coffee Number of servings: 1 and tea Number of servings: 2 Audit: Pertinent Findings Pertinent Findings EKG Perinent findings: July 16, 2025. Sinus tachycardia 103 bpm. Stress test pertinent findings: 03/29/2021. Preserved EF is 73%. Prior anterior AR with mild vinh-infarct reversible ischemia. Echo (EF%) pertinent findings: July 17, 2025. EF is 60%. PASP is 30 mmHg. No aortic stenosis noted. Heart catheterization pertinent findings: 04/07/2021. EF is 60%. Proximal LAD has a previously placed stent which is patent. Circumflex has mild luminal irregularities. Proximal RCA is 80% stenosed -successful PCI of the proximal RCA with a ANTHONY. Consult pertinent findings: 04/18/2025. Cody MORTONC. 1. History of coronary artery stent placement-BMS to the proximal LAD. ANTHONY to the proximal RCA. This appears stable. No medication changes. 2. [id number]. 3. Tobacco–patient continues to smoke. Recommendation Anesthesia Recommendation Anesthesia recommendation: OPTIMIZED for anesthesia
[2025-09-28] VITALS (8 sets, daily range): BP systolic 115–167; BP diastolic 75–90; PULSE 57–79; RESP 12–16; TEMP 36.1–36.3; O2SAT 94–100
[2025-09-28] MEDS: Lactated Ringers 1,000 ML 15 ML IV (07:16)
--- NOTE | 2025-09-28 07:29 | PCM.PRE.AN2 ---
ASA Classification* ASA Classification ASA Classification: 3 Assessment & Plan Anesthesia* Anesthesia Assessment Anesthesia Assessment: Discussed sedation and/or anesthesia options, risks, benefits, and alternatives with patient/parents/legal guardian/POA. Questions invited. The patient/parents/legal guardian/POA seems to understand and agrees to proceed with anesthesia plan. Reviewed the physical assessment, medical history, allergy history and patient home medications list prior to surgery/procedure/anesthetic and documented any changes. Performed airway and anesthesia risk assessments. Anesthesia Type Anesthesia Type: General History Source History Obtained from:: Patient and Chart Anesthesia Focused Assessment* Temperature: 97 F Pulse Rate: 62 Blood Pressure: 128/82 Respiratory Rate: 16 Pulse Ox: 97 Oxygen Delivery Method: Room Air Airway Assessment Mouth opens: >3 cm Mallampati Score: I Teeth Condition: Intact and Dentures (upper dentures to take out) Neck Range of motion (ROM): Full ROM Labs Anesthesia Preop lab: CBC WBC, (4.4-11.0) 5.2 K/mm3 09/27/25, : RBC, (4.2-5.4) 5.76 M/mm3 H 09/27/25, : Hgb, (12.0-15.0) 17.4 g/dL H 09/27/25, : Hct, (37-47) 50.4 % H 09/27/25, : Plt Count, (150-450) 147 K/mm3 L 09/27/25, : CHEMISTRY Potassium, (3.3-5.1) 4.1 mmol/L 09/27/25, : Sodium, (133-145) 138 mmol/L 09/27/25, : Magnesium, (1.5-2.2) 2.1 mg/dL 09/13/25, :44 Phosphorus, (2.7-4.5) 4.4 mg/dL 09/13/25, :44 BUN, (4-19) 11 mg/dL 09/27/25, : Creatinine, (0.70-1.20) 0.65 mg/dL L 09/27/25, : Glucose, (70-99) 97 mg/dL 09/27/25, : POC Glucose, (74-106) 167 mg/dL H 05/29/22, 12:06 TSH, (0.300-4.200) 5.230 uIU/mL H 07/17/25, 03:00 COAG PT, (11.7-14.9) 17.1 SECONDS H 07/16/25, 10:30 Pre-Assessment Diagnosis/Proposed Procedure Planned Operative Procedure(s): cysto ureteroscopy retro laser stent L Anesthesia History 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 When Was Last Pacemaker Check QUESTION #4 FULL TEXT: You/Your Family Experience fever (hyperthermia) with Anesthesia Last Oral Intake Last Oral intake: Last Oral Intake NPO since 19:00 09/28/25 07:16 Meds taken in AM with sips of No 09/28/25 07:16 water? 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 supervisor Female Yes 09/21/25 13:43 HX of Motion Sickness No 09/21/25 13:43 HX of N/V After Surgery No 09/21/25 13:43 Non-Smoker No 09/21/25 13:43 Duration of Surgery greater No 09/21/25 13:43 than 60 minutes Number of Risk Factors 1 09/21/25 13:43 PONV Score Low Risk 09/21/25 13:43 Height & Weight Height & Weight: Anesthesia: Height & Weight Height 5 ft 7 in 09/28/25 07:16 Weight: 87 kg 09/28/25 07:16 Body Mass Index (BMI) 30.0 09/28/25 07:16 Respiratory Assessment Respiratory Assessment - cloth shrinking supervisor: Respiratory Tract Infection Hx - cloth shrinking supervisor Hx Respiratory Tract Infection No 09/21/25 13:43 STOP Sleep Apnea STOP Sleep Apnea - cloth shrinking supervisor: STOP Sleep Apnea - cloth shrinking supervisor Hx Hypertension No 09/21/25 13:43 Hx Sleep Apnea No 09/21/25 13:43 CPAP BIPAP Do you snore loudly (louder No 09/21/25 13:43 than talking or can be heard Do you often feel tired/ No 09/21/25 13:43 fatigued/ sleepy during daytime? Has anyone observed you stop No 09/21/25 13:43 breathing during sleep? STOP Results Negative 09/21/25 13:43 QUESTION #5 FULL TEXT : Do you snore loudly (louder than talking or can be heard through closed doors)? 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 Tobacco Use Cigarettes 03/28/21 15:34 Smoking Status Current every day smoker 09/21/25 13:43 Hx Tobacco Use Yes: 0.5 or less ppd per pt 09/21/25 13:43 Years Smoking 40 09/21/25 13:43 Packs Smoked per Day 0.5 09/21/25 13:43 Smoking Cessation Date was within the last 15 years Hx Smoking Cessation Date Hx Smoking Cessation No 09/21/25 13:43 Counseling Hematologic Medial History Hematologic Hx - cloth shrinking supervisor: Hematologic Medical Hx - supervisor hide house Hx of Blood Transfusion Yes 09/21/25 13:43 Hx of Transfusion in last 3 No 09/21/25 13:43 Months Date of Last Transfusion (if within last 3 months) Ever experience any problems No 09/21/25 13:43 with transfusion(s)? Specify any problems Hx of Preganancy in last 3 No 09/21/25 13:43 Months Nurse Filling Out Transfusion JZOLLINGE 09/21/25 13:43 & Questions: Date: 09/21/25 09/21/25 13:43 Time: 13:45 09/21/25 13:43 Patient unable to answer at this time (ie. 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Q48H FREEDOM Administration PFSH Medical History History of chemotherapy At high risk for deep venous thrombosis Bilateral lower extremity edema Iron deficiency anemia Constipation Transaminitis 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 Hypokalemia Encounter for chemotherapy management Severe neutropenia Anemia Dark urine Oral candidiasis Encounter for education Cancer Back pain Shortness of breath on exertion Leg cramps History of stress test Primary leiomyosarcoma of pelvis Anemia due to chronic blood loss Menorrhagia Wears dentures High cholesterol Loss of consciousness Gastric reflux Smoker Cardiology follow-up encounter History of echocardiogram Cardiac murmur History of non-ST elevation myocardial infarction (NSTEMI) (06/2014) Essential (primary) hypertension Atherosclerosis of coronary artery without angina pectoris Kidney stones Home Medications Medication Instructions Recorded Last Taken Type aspirin 81 mg chewable tablet 81 mg PO DAILY@0800 hx of mi 06/09/19 09/20/25 History atorvastatin 80 mg tablet 80 mg PO QHS cholesterol #90 tabs 11/29/23 Unknown Rx letrozole 2.5 mg tablet 2.5 mg PO QDAY #30 tabs 08/09/25 Unknown Rx pazopanib 200 mg tablet 400 mg PO .qd 09/21/25 Unknown History Allergy/AdvReac Type Severity Reaction Status Date / Time No Known Allergies Allergy Verified 09/28/25 07:13 Family History Father Kidney disease Aunt Cancer paternal Other Heart disease Surgical History H/O pelvic mass (~01/26/25) History of cardiac catheterization Hx of oral surgery Hx laparoscopic cholecystectomy Hx of left cataract extraction History of hysterectomy Cataract extraction status of right eye Hx of tubal ligation History of coronary artery stent placement (03/31/21) Social History household members: spouse housing: house Smoking Status: Current every day smoker tobacco type: cigarettes Tobacco: How many years used: 39 quit status: considering quitting alcohol intake: never substance use type: does not use caffeine: Yes Type: coffee Number of servings: 1 and tea Number of servings: 2 Review of Systems (Anesthesia) ROS Narrative System reviewed and no additional complaints, except as documented.
[2025-09-28] MEDS: Cefazolin 1 GM/5 ML Vial 2 GM IV (08:30)
[2025-09-28] MEDS: Lidocaine 1% (5 ml sdv) 5 ML Vial IV (08:33)
--- NOTE | 2025-09-28 08:33 | PCM.DC ---
Discharge Instructions DC O2, CPAP, BIPAP needs Home O2 Discharge instructions: No Dressing / Incision Discharge Activity: Return to Normal Activity and May Not Drive (while taking narcotic pain medications.) Dressing / Incision Call your doctor if you observe: Fever of 101 or Higher Follow Up Care Please Follow Up With: Dave Cowan MD When: Call [phone] for an appointment Test Results: Test results from this visit will be discussed in further detail at your follow-up appointment, if applicable. Discharge Plan Admission Primary Reason for Your Visit: laser stone Attending Provider: Dave Cowan Primary Care Provider: David Tse Instructions Patient Instructions: Laser Lithotripsy: Pre-op, Laser Lithotripsy: Post-op, Kidney Stone Ureteroscopy Print Language: Sinhala Discharge Orders/Prescriptions Prescriptions: New ciprofloxacin HCl [Cipro] 500 mg tablet 500 mg PO BID Qty: 10 0RF phenazopyridine [Pyridium] 100 mg tablet 100 mg PO TID PRN (Reason: pain) Qty: 14 0RF tamsulosin [Flomax] 0.4 mg capsule 0.4 mg PO DAILY Qty: 10 0RF Continued atorvastatin 80 mg tablet 80 mg PO QHS Qty: 90 3RF letrozole 2.5 mg tablet 2.5 mg PO QDAY Qty: 30 2RF aspirin 81 MG tablet,chewable 81 mg PO DAILY@0800 pazopanib 200 mg tablet 400 mg PO .qd Rx Instructions: 09/17/25 take 400mg qd, increase 10/01/25 to 600mg Referrals / Follow Up: Dave Cowan MD [Med Staff - Active Staff, Urology] Daivd Tse MD [Primary Care Provider, Medical] Disposition Disposition (needs filled in before D/C Order can be placed): Home, Self Care
--- NOTE | 2025-09-28 09:09 | OP.PCM_ITS ---
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 I discussed with the patient how the surgery would be performed and we reviewed the risks and benefits of the surgery. The risk and benefits include the risk of failure to remove the stone completely and that the patient may need multiple procedures. We discussed the risk of an infection, the risk of bleeding. We discussed the very rare risk of serious complicated injury to the ureter. The patient understands that if the stone is not able to be removed safely that we may abort the procedure and place a stent. After full discussion and all questions address with the patient the consent form was signed the side was marked appropriately and the patient was taken back to the operating room for the procedure. The patient was taken back to the operating room. After induction of anesthesia by the anesthesiology team the patient was placed in dorsolithotomy position. The genitals were prepped and draped in usual sterile fashion. I went into the bladder with a 21 Icelandic rigid cystourethroscope through the urethra. Upon entering the bladder I inspected the trigone the left and right ureteral orifice and the bladder itself. I then cannulated the left ureteral orifice and advanced a 0.038 Glidewire up into the kidney. Then over the Glidewire I advanced a 5 Fr Ureteral catheter and performed a retrograde pyelogram with about 10cc of contrast, to delineate the anatomy and identify the stone location. Then a ureteral balloon dilator was advanced over the wire and the distal ureter was balloon dilated with a 12 Fr x 5cm balloon dilator. After 3 minutes of dilating the ureter the balloon was backloaded off the 0.038 glidewire over the 0.038 guidewire I went in with the flexible 7.5fr ureteroscope. I was able to go inside with the 7.5Fr utereroscope and I pulled out the guidewire and then through the ureteroscope I engage the stone in the left renal pelvis with laser lithotripsy using a 270miron laser fiber with energy setting of 100 Hertz and 0.4 J until the stone was lasered into tiny little pieces that should pass on their own. A retrograde pyelogram was performed with 10cc of contrast and no extravasation of contrast or perforation was identified in the ureter there was some mild irritation of the ureter where the stone was located. I then backed out of the ureter left the wire in place and then over the 0.038 guidewire I placed a double coiled pigtail ureteral stent. The ureteral stent was advanced over the 0.038 guidewire under direct fluoroscopic guidance and direct cystoscopic visual guidance, once the stent was in good position I pulled the wire and the stent coiled in the kidney and bladder in good position. I then drained the patient's bladder and the cystoscope was removed and the patient was taken back to the recovery room in good position. The patient was given discharge instructions to call the office for instructions on when to come to the office to have the stent removed. Surgical Findings: Stone in the left kidney completely lasered Complications Complications: No Admit VTE Documentation VTE Present on Admission: No VTE Mechan Device Prophylaxis: SCD's VTE Pharm Prophylaxis ordered?: No
[2025-09-28] MEDS: fentaNYL 100 MCG/2 ML Ampul IV (09:11)
--- NOTE | 2025-09-28 09:18 | PCM.POST.ANE ---
Anesthesia: Postop Eval I Current Vital Signs Temperature: 97.3 F Pulse Rate: 78 Blood Pressure: 155/82 Respiratory Rate: 12 Pulse Ox: 96 Oxygen Delivery Method: Room Air Assessment Airway patent: Yes Spontaneous unlabored respirations: Yes Mental status: Awake and Calm nausea: No Vomiting: No Anesthesia Complication: No Fluid Hydration Crystalloid volume administer (ml): 800 Total IV fluid infused: 800 Progress Note Anesthesia document: Postop Eval 1 completed: Yes
--- NOTE | 2025-09-28 13:36 | POSTOPAN2_ITS ---
Anesthesia Postop Eval I Sum Postop Eval Completion status Anesthesia document: Postop Eval 1 completed: Yes Anesthesia Postop Eval I Summary Anesthesia Postop Eval I Summary: Anesthesia Postop Eval I: Assessment Summary Airway patent Yes 09/28/25 09:19 RASCHEL KNITTING MACHINE OPERATOR.SHOF Spontaneous unlabored Yes 09/28/25 09:19 RASCHEL KNITTING MACHINE OPERATOR.SHOF respirations Mental status Awake,Calm 09/28/25 09:19 RASCHEL KNITTING MACHINE OPERATOR.SHOF nausea No 09/28/25 09:19 RASCHEL KNITTING MACHINE OPERATOR.SHOF Vomiting No 09/28/25 09:19 RASCHEL KNITTING MACHINE OPERATOR.SHOF Anesthesia Postop Eval I: Fluid Summary Crystalloid volume administer 800 09/28/25 09:19 RASCHEL KNITTING MACHINE OPERATOR.SHOF (ml) Colloids volume administered ( ml) Blood Product volume administered (ml) Total IV fluid infused 800 09/28/25 09:19 RASCHEL KNITTING MACHINE OPERATOR.SHOF Anesthesia Postop Eval I: Summary Notes Anesthesia Complication No 09/28/25 09:19 RASCHEL KNITTING MACHINE OPERATOR.SHOF Anesthesia Complication Comment: Post-operative progress note Anesthesia: Postop Eval II Evaluation Mental status: Awake and Calm Pain Level: 0 nausea: No Vomiting: No Complications Anesthesia Complication: No
--- NOTE | 2025-09-28 13:36 | PCM.POSTANE2 ---
Anesthesia Postop Eval I Sum Postop Eval Completion status Anesthesia document: Postop Eval 1 completed: Yes Anesthesia Postop Eval I Summary Anesthesia Postop Eval I Summary: Anesthesia Postop Eval I: Assessment Summary Airway patent Yes 09/28/25 09:19 REFERENCE TEST CLERK.SHOF Spontaneous unlabored Yes 09/28/25 09:19 REFERENCE TEST CLERK.SHOF respirations Mental status Awake,Calm 09/28/25 09:19 REFERENCE TEST CLERK.SHOF nausea No 09/28/25 09:19 REFERENCE TEST CLERK.SHOF Vomiting No 09/28/25 09:19 REFERENCE TEST CLERK.SHOF Anesthesia Postop Eval I: Fluid Summary Crystalloid volume administer 800 09/28/25 09:19 REFERENCE TEST CLERK.SHOF (ml) Colloids volume administered ( ml) Blood Product volume administered (ml) Total IV fluid infused 800 09/28/25 09:19 REFERENCE TEST CLERK.SHOF Anesthesia Postop Eval I: Summary Notes Anesthesia Complication No 09/28/25 09:19 REFERENCE TEST CLERK.SHOF Anesthesia Complication Comment: Post-operative progress note Anesthesia: Postop Eval II Evaluation Mental status: Awake and Calm Pain Level: 0 nausea: No Vomiting: No Complications Anesthesia Complication: No
== END 2025-09-28 10:43 | disposition home or self-care (01) ==
LOC: SDC 06:49 → AC 06:51
PROVIDERS: PCP Family Medicine; Referring Provider Urology; Visit Provider Urology
DX: N20.2 Calculus of kidney with calculus of ureter (principal); I10 Essential (primary) hypertension; I25.2 Old myocardial infarction; I25.10 Atherosclerotic heart disease of native coronary artery without angina pectoris; E78.00 Pure hypercholesterolemia, unspecified; F17.210 Nicotine dependence, cigarettes, uncomplicated; Z95.1 Presence of aortocoronary bypass graft; Z79.82 Long term (current) use of aspirin; Z79.899 Other long term (current) drug therapy; Z90.49 Acquired absence of other specified parts of digestive tract
CPT/HCPCS: 52356; 00918; C1769; C2617; J2405

== ENCOUNTER → 2025-10-22 | Outpatient (CLI) | payer BC, SELFPAY ==
--- NOTE | 2025-10-22 07:53 | RAD_ITS ---
PROCEDURE: CON INJ JEROD EVAL CVP INC FLURO 10/22/2025 REASON FOR EXAM: PORT PROBLEM TECHNIQUE: Procedure Code: RADCVPINJ Modality: DX Procedure: CON INJ JEROD EVAL CVP INC FLURO. The patient has an indwelling right-sided port a catheter. Contrast was injected under fluoroscopy. Fluoroscopy: 29 seconds. Radiation dose: 13.5 mGy. COMPARISON: None FINDINGS: 20 cc of Isovue-300 was injected into the indwelling port a catheter. The tip of the catheter is in the right atrium. There is free flow of contrast. No evidence of obstruction. No evidence of leakage. RAD/Con Inj Jerod Eval CVP Inc Fluro IMPRESSION: No evidence of obstruction to the flow of contrast. The tip of the port a cath eter is in the right ventricle. Reading Location: [place] [id number]
[2025-10-22] MEDS: 0.9 % NaCl (Sterile) Posiflush 10 mL IV (08:25)
[2025-10-22] MEDS: 0.9% Saline Lock 10 ML Syringe IV (08:35)
== END | disposition home or self-care (01) ==
PROVIDERS: PCP Family Medicine; Referring Provider Nurse Practitioner Family; Visit Provider Nurse Practitioner Family
DX: T82.9XXA Unspecified complication of cardiac and vascular prosthetic device, implant and graft, initial encounter (principal); Y71.8 Miscellaneous cardiovascular devices associated with adverse incidents, not elsewhere classified
CPT/HCPCS: 36598; A4216

== ENCOUNTER → 2025-11-06 | Outpatient (CLI) | payer BC, SELFPAY ==
--- NOTE | 2025-11-06 07:32 | BD_ITS ---
PROCEDURE: DEXA BONE DENSITY STUDY 11/06/2025 REASON FOR EXAM: SCREENING FOR OSTEOPOROSIS F, age 55 y/o . Patient is postmenopausal.. TECHNIQUE: Procedure Code: BDDBD Modality: DX Procedure: DEXA BONE DENSITY STUDY COMPARISON: None FINDINGS: BMD and T-SCORES Lumbar spine: 1.040 g/cm2, T-score 0.1 Levels: L1 through L4 Left femoral neck: 0.779 g/cm2, T-score -0.6 Left total hip: 0.943 g/cm2, T-score 0 Right femoral neck: 0.816 g/cm2, T-score -0.3 Right total hip: 0.976 g/cm2, T-score 0.3 The World Health Organization has defined the following categories based on bone density: Normal bone density: T-score equal to or greater than -1.0 Osteopenia: T-score between -1.0 and -2.5 Osteoporosis: T-score equal to or less than -2.5 FRAX (or Comparable) Fracture Risk Assessment: 10 Year Probability of Fracture: Major Osteoporotic Fracture: 5.2% Hip Fracture: 0.3% (Note: FRAX is not to be reported in setting of normal range bone density, osteoporosis on DEXA, known history of osteoporosis, prior osteoporotic hip or vertebral fracture, or for any patient undergoing pharmacological treatment for bone loss.) The National Osteoporosis Foundation (NOF) recommends pharmacological treatment for patients with a FRAX 10-year risk of 3% or higher for a hip fracture, or 20% or higher for a major osteoporotic fracture, to prevent osteoporosis and reduce fracture risk. The patient does not meet the pharmacological treatment recommendations for prevention of osteoporosis. BD/Dexa Bone Density Study IMPRESSION: NORMAL T-SCORES. Recommend follow-up in 2 years. Reading Location: [id number]
--- OUTSIDE RECORDS SUMMARY | 2025-11-06 07:33 | XMS RPT_ITS | CCD ---
Author Organization [facility] Care Team Providers Care Chairman Of The Board Name Role Phone Unavailable Primary Care Provider Unavailabl e Care Physician, No Primary Primary Care Provider Unavailable Dr. Joni Michel Attending Provider Mackenzie Fink MD Primary Care Provider Mackenzie Fink MD Primary Care Provider Care Physician, No Primary Referring Provider Un available Dr. Joni Michel Attending Provider Dr. Mackenzie Fink Primary Care Provider Mackenzie Fink MD Primary Care Provider Unavailable Primary Care Provider Unavailabl e Mikel LEAD SOFTWARE TEST ENGINEER.WATER QUALITY TESTER, Hilda Unavailable Elodia LEAD SOFTWARE TEST ENGINEER.WATER QUALITY TESTER, India A Unavailable Darvin Grday MD Unavailable Mackenzie Fink MD Primary Care Provider Dr. Mackenzie Fink MD Primary Care Provider Dr. Isaiah Villanueva DO Attending Provider Dr. Isaiah Villanueva DO Emergency Provider Dr. Imani Persaud MD Attending Provider Nabil Lind Referring Provider Dr. Imani Persaud MD Referring Provider Areli LEAD SOFTWARE TEST ENGINEER - WATER QUALITY TESTER, Gladis D Unavailable JUANA LINTON Referring Unavailable MACKENZIE FINK Primary Care Unavailable ALEKS, MACKENZIE J Primary Care Unavailable ALEKS, MACKENZIE Alicea Primary Care Unavailable ALEKS, MACKENZIE Alicea Primary Care Unavailable ALEKS, MACKENZIE Alicea Primary Care Unavailable SUSY SMITH Referring Unavailable ALEKS, MACKENZIE Alicea Primary Care Unavailable ISAÍAS RIBEIRO Referring Unavailable ALEKS, MACKENZIE Alicea Primary Care Unavailable DARVIN GRADY Attending Unavailable ALEKS, MACKENZIE Primary Care Unavailable GLADIS HERBERT Attending Unavailable ALEKS, MACKENZIE Primary Care Unavailable DARVIN GRADY Attending Unavailable IMANI PERSAUD Referring Unavailable ALEKS, MACKENZIE Primary Care Unavailable DARVIN GRADY Admitting Unavailable DARVIN GRADY Attending Unavailable ALEKS, MACKENZIE Primary Care Unavailable Aleks , Dr. Hernandez Referring Provider Jose Manule AVLDEZ, Dr. Venegas Attending Provider Jose Manuel VALDEZ, Dr. Venegas Referring Provider Jose Manuel VALDEZ, Dr. Venegas Other Provider Aleks VALDEZ, Mackenzie Primary Care Provider Cori WHEELER [facility], Imani S Unavailable Shannan Kearney RN Unavailable Unavailable Shayna CORE MANAGER-C, Delmis Attending Provider Dr. Imani Persaud MD Referring Provider [facility] CORE MANAGER-Keron Naylor Attending Provider Dr. Girish Mcgarry DO Emergency Provider Dr. Girish Mcgarry DO Attending Provider CHRISTOPHER CUNNINGHAM Attending Unavailable ALEKS, MACKENZIE Primary Care Unavailable IMANI PERSAUD S Referring Unavailable Dr. Mackenzie Fink MD Primary Care Provider Dr. Mackenzie Fink MD Primary Care Provider Dr. Imani Persaud MD Attending Provider Dr. Imani Persaud MD Referring Provider Shayna CORE MANAGER-C, Delmis Referring Provider Dr. Richi Moore MD Attending Provider Dr. Mackenzie Fink MD Primary Care Provider Aleks VALDEZ, Dr. Hernandez Referring Provider Cori VALDEZ, Dr. Diallo Attending Provider Aleks VALDEZ, Dr. Hernandez Primary Care Provider Aleks VALDEZ, Dr. Hernandez Referring Provider Jose Manuel VALDEZ, Dr. Venegas Attending Provider Cori VALDEZ, Dr. Diallo Attending Provider Cori VALDEZ, Dr. Diallo Referring Provider Jose Manuel VALDEZ, Dr. Venegas Referring Provider Jose Manuel VALDEZ, Dr. Venegas Other Provider Shayna CORE MANAGER-C, Delmis Attending Provider [facility] CORE MANAGER-C, Keron King Attending Provider Malgorzata RUVALCABA, Dr. Stout Attending Provider Dr. Girish Mcgarry DO Emergency Provider Shayna CORE MANAGER-C, Delmis Referring Provider Oscar VALDEZ, Dr. Stoddard Attending Provider Dr. Bj Waddell DO Emergency Provider Tay VALDEZ, Dr. Valentin Admit Provider Tay VALDEZ, Dr. Valentin Attending Provider Tay VALDEZ, Dr. Valentin Other Provider Ana Lilia VALDEZ, Dr. Kelil Pierce Attending Provider Erik VALDEZ, Dr. Hitchcock Attending Provider Ana Lilia VALDEZ, Dr. Kelli Pierce Other Provider Aleks VALDEZ, Dr. Hernandez Primary Care Physician Aleks VALDEZ, Dr. Hernandez Referring Provider Roof CORE MANAGER-C, Keron King Attending Physician Cori VALDEZ, Dr. Diallo Attending Physician Dr. Girish Mcgarry DO Attending Physician Dr. Girish Mcgarry DO Emergency Department Physi brandon Shayna CORE MANAGER-C, Delmis Attending Physician Oscar VALDEZ, Dr. Stoddard [facility]ending [facility]ician [facility]. Lorenzo Emergency Departmen t Physician Tay VALDEZ, Dr. Valentin Admitting Physician Tay VALDEZ, Dr. Valentin Nurse Practitioner Ana Lilia VALDEZ, Dr. Kelli Pierce Attending Physician Erik VALDEZ, Dr. Hitchcock Attending Physician Ana Lilia VALDEZ, Dr. Kelli Pierce Nurse Practitioner Cori VALDEZ, Dr. Diallo Referring Provider Shayna CORE MANAGER-C, Delmis Nurse Practitioner Jefferson VALDEZ, Dr. Bear Attending Physician Cori VALDEZ, Dr. Diallo Referring Provider Shayna CORE MANAGER, Delmis Referring Unavailable Shayna CORE MANAGER, Delmis Attending Unavailable [place], Mackenzie Primary Care Unavailable Isckarus, Mansour Referring Unavailable Isckarus, Jenniferour Attending Unavailable Aleks, Mackenzie Primary Care Unavailable Shayna CORE MANAGER, Delmis Consulting Unavailable [place], Mackenzie Primary Care Unavailable Isaiah Villanueva Attending Unavailable Isckarus, Jenniferour Attending Unavailable [place], Mackenzie Primary Care Unavailable Aleks, Mackenzie Referring Unavailable Girish Mcgarry Attending Unavailable [place], Mackenzie Primary Care Unavailable Isckarus, Mansour Referring Unavailable Aleks, Mackenzie Primary Care Unavailable Isckarus, Imani Attending Unavailable Girish Mcgarry Attending Unavailable Aleks, Mackenzie Primary Care Unavailable Barbie Cross Admitting Unavailable [place], Mackenzie Primary Care Unavailable Barbie Cross Consulting Unavailable Kelli Sung Attending Unavailable Isckarus, Imani Attending Unavailable Isckarus, Mansour Referring Unavailable [place], Mackenzie Primary Care Unavailable Isckar, Jenniferour Attending Unavailable Aleks, Mackenzie Primary Care Unavailable Aleks, Mackenzie Referring Unavailable Isckarus, Imani Attending Unavailable [facility] Primary Care Unavailable [place], Mackenzie Referring Unavailable Shayna CORE MANAGER, Delmis Attending Unavailable [place], Mackenzie Referring Unavailable [facility] Primary Care Unavailable IsckarusImani Attending Unavailable [facility] Primary Care Unavailable [place], Mackenzie Referring Unavailable Shayna CORE MANAGER, Delmis Attending Unavailable [facility] Primary Care Unavailable [place], Mackenzie Referring Unavailable Kelli Sung Attending Unavailable [facility] Primary Care Unavailable Barbie Cross Consulting Unavailable Barbie Cross Admitting Unavailable Koram, Kelli Kari Consulting Unavailable [facility] Primary Care Unavailable Naldo Valencia Attending Unavailable Shayna CORE MANAGER, Delmis Referring Unavailable [facility] Primary Care Unavailable Chema Paulino Attending Unavailable [facility] Primary Care Unavailable Dave Cowan Attending Unavailable Dave Cowan Referring Unavailable IsckarImani ledesma Attending Unavailable Isckarus, Mansour Referring Unavailable [facility] Primary Care Unavailable Shayna CORE MANAGER, Delmis Attending Unavailable [facility] Primary Care Unavailable [place], Mackenzie Referring Unavailable Barbie Cross Attending Unavailable Caseabretta Theo Referring Unavailable CalabrTheo rajput Attending Unavailable [facility] Primary Care Unavailable Calabretta, Theo Consulting Unavailable Calabretta, Theo Referring Unavailable CalabrettaTheo Attending Unavailable [facility] Primary Care Unavailable IsckarusImani Attending Unavailable Isckarus, Mansour Referring Unavailable [facility] Primary Care Unavailable Keron Ross NP Attending Unavailable [facility] Primary Care Unavailable [place], Mackenzie Referring Unavailable IsckarusImani Attending Unavailable [facility] Primary Care Unavailable Nabil Santos Referring Unavailable Richi Moore Attending Unavailable [place], Mackenzie Referring Unavailable [facility] Primary Care Unavailable IsckarusImani Attending Unavailable [facility] Primary Care Unavailable [place], Mackenzie Referring Unavailable Isckarus, Imani Attending Unavailable [facility] Primary Care Unavailable [place], Mackenzie Referring Unavailable CalTheo greer Attending Unavailable [facility] Primary Care Unavailable [place], Mackenzie Referring Unavailable Shayna CORE MANAGER, Delmis Attending Unavailable [place], Mackenzie Referring Unavailable [facility] Primary Care Unavailable Shayna CORE MANAGER, Delmis Attending Unavailable [facility] Primary Care Unavailable [place], Mackenzie Referring Unavailable Shayna CORE MANAGER, Delmis Attending Unavailable [facility] Primary Care Unavailable [place], Mackenzie Referring Unavailable Shayna CORE MANAGER, Delmis Attending Unavailable [place], Mackenzie Primary Care Unavailable [place], Mackenzie Referring Unavailable Imani Persaud Attending Unavailable [place], Mackenzie Primary Care Unavailable [place], Mackenzie Referring Unavailable Shanya CORE MANAGER, Delmis Attending Unavailable [place], Mackenzie Primary Care Unavailable [place], Mackenzie Referring Unavailable mIani Persaud Attending Unavailable [place], Mackenzie Primary Care Unavailable [place], Mackenzie Referring Unavailable Medications Current Medications Medication Drug [...] not administer if patient has taken tylenol [id number] 200 actuat albuterol 0.09 mg/actuat metered dose [...] of therapy completed) atorvastatin 80 mg oral tabl et (20 sources) HMG-CoA Reductase Inhibitor Start: 11-29-2023 Start: 03-31-2021 End: 02-27-2024 Comment on above: Take 40 mg by mouth once daily. Take 1 tablet by joe th once daily. cephalexin 500 mg oral capsule (3 sources) Cephalosporin Antibacterial Start: 5 End: 5 take 1 capsule by mouth twice daily cephALEXin (KEFLEX) 500 mg capsule Take 1 capsule by mouth two times a day for 5 days. 10 capsule 12/24/2024 12/29/2024 Active docusate sodium 100 mg oral capsule (7 sources) Start: 5 End: 5 take 1 capsule by mouth twice daily in the evening docusate sodium (Colace) 100 MG capsule Take 1 capsule (100 mg) by mouth 2 times daily. 60 capsule 01/26/2025 5:21 PM EDT 01/26/2025 02/25/2025 Active doxycycline hyclate 100 mg oral tablet (4 sources) Tetracycline-class Drug Start: 4 End: 4 take 1 tablet by mouth twice daily [...] Comment on above: Take 1 capsule by [facility] twice daily for 7 days. fluconazole 150 mg oral tablet (3 sources) [...] dose. 1 Each 0 03/23/2024 03/23/2024 Active letrozole 2.5 mg oral tablet (3 sources) Aromatase Inhibitor Start: 08-09-2025 Multivitamins chew (20 sources) Multivitamins ch ew Take by mouth. With iron Active Multivitamins ch ew Take by mouth. With iron 0 Active Comment on above: Take by mouth. With iron Nystatin 100,000 unit/mL suspension (10 sources) Start: [...] April 30, 2025 12:00am swish and swallow oxyCODONE hydrochloride 5 mg oral tablet (20 [...] tablet 5 mg Start: 05-29-2022 End: 12-08-2022 polyethylene glycol 3350 [id number] mg / potassium chloride 2980 mg / sodium bicarbonate 6720 mg / sodium chloride 5840 mg / sodium sulfate 98293 mg powder for oral solution (1 source) [...] Start: 02-16-2023 take 2 tablets by mo uth once daily predniSONE (DELTASONE) 20 mg tablet [...] 2 tablets by mo ut once daily. simethicone 80 mg chewable tablet [...] / oxyCODONE hydrochloride 5 mg oral tablet (20 sources) Opioid Agonist Start: 01-08-2025 End: 03-26-2025 Start: 01-08-2025 End: 03-26-2025 Oxycodone-Acetaminophen (Per cocet) 5-325 mg tablet Discontinued 1 {tbl} PO Q8H as needed for pain 10 3 0 January 08, 2025 March 26, 2025 1:35pm Pelvic mass Intra-abdominal and pelvic swelling, mass and lump, unspecified site aspirin 81 mg delayed release oral tablet (20 sources) Platelet Aggregation Inhibitor, Nonsteroidal Anti-inflammatory Drug Start: 01-27-2025 End: 01-27-2025 Start: 06-09-2019 Comment on above: Take 81 mg by mouth once daily. calcium chloride 0.0014 meq/ml / potassium chloride 0.004 meq/ml / sodium chloride 0.103 meq/ml / sodium lactate 0.028 meq/ml injectable solution (4 sources) Start: End: take 100 mL intravenously every hour 100 mL/hr, IntraVENous, Continuous, Starting on Wed01/26/25 at 1030, For 6 hours ceFAZolin 2000 mg injection (2 sources) Cephalosporin Antibacterial Start: End: take 2000 mg intravenously every eight hours 2,000 mg, IntraVENous, Administer over 30 Minutes, Every 8 hours, First dose on Wed01/26/25 at 1630, For 2 doses, premix bag, Suspected Indication (Select all that apply): Surgical Prophylaxis cefdinir 300 mg oral capsule (5 sources) Cephalosporin Antibacterial Start: End: cefpodoxime 200 mg oral tablet (17 sources) Cephalosporin Antibacterial Start: End: clopidogrel 75 mg oral tablet (20 sources) P2Y12 Platelet Inhibitor Start: End: Comment on above: Take 75 mg by mouth once daily. dexamethasone 4 mg oral tablet (20 sources) Corticosteroid Start: End: diclofenac sodium 0.01 mg/mg topical gel (9 sources) Nonsteroidal Anti-inflammatory Drug Start: End: Start: 05-31-2025 Diclofenac Sod ium (Arthritis Pain (Diclofenac)) 1 % gel Active 2 g TOPICAL .COMPLEX 100 2 May 31, 2025 12:00am 2 grams topically; apply to palms of hands and bottoms of feet famotidine 20 mg oral tablet (20 sources) Histamine-2 Receptor Antagonist Start: 01-26-2023 End: 07-16-2025 Comment on above: Take 1 tablet by twice daily. 1 ml HYDROmorphone hydrochloride 1 mg/ml cartridge (2 sources) Opioid Agonist Start: 01-26-2025 End: 01-26-2025 0.5 mg, IntraVENous, Every 5 min PRN, [...] sources) Nonsteroidal Anti-inflammatory Drug, Cyclooxygenase Inhibitor Start: 01-26-2025 End: 01-26-2025 take 30 mg intravenously every six hours 30 mg, IntraVENous, Every 6 hours, First dose on Wed01/26/25 at 1600, For 2 doses, Phase II/On Unit, Discontinue when able to take PO ibuprofen. 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 metoprolol tartrate 25 mg oral tablet (20 sources) beta-Adrenergic Eric Start: 03-31-2021 End: 03-26-2025 Comment on above: Take 25 mg by mouth twice daily. 1 ml naloxone hydrochloride 0.4 mg/ml injection (2 sources) Opioid Antagonist Start: 01-26-2025 End: 01-27-2025 0.4 mg, IntraVENous, Every 5 min PRN, opioid reversal, respiratory depression, Starting on Wed01/26/25 at 1207, +++ For RR norethindrone acetate 5 mg oral tablet (20 sources) Start: 05-28-2022 End: 05-29-2022 Start: 05-28-2022 End: 05-29-2022 take 1 mg [...] 1 tablet by joe three times daily. nystatin [id number] unt/ml oral suspension (8 sources) Polyene Antifungal Start: 04-30-2025 End: 07-16-2025 Start: 02-14-2025 End: 02-14-2026 nystatin [id number] UNIT/GM Crea m Apply topically Twice daily. 02/14/2025 02/14/2026 Active Start: 02-14-2025 End: 02-14-2026 nystatin (Mycostatin) cream Apply topically 2 times daily. 30 g 3 02/14/2025 02/14/2026 Active ondansetron 8 mg disintegrat ing oral tablet (20 sources) Serotonin-3 Receptor Antagonist Start: 04-04-2025 End: 07-16-2025 Start: 01-08-2025 End: 03-26-2025 Start: 01-08-2025 End: 03-26-2025 take 1 tablet by mouth every eight hours as needed for nausea Ondansetron 4 mg tablet,disintegrating Discontinued 4 mg PO EVERY 8 HOURS NEEDED as needed for Nausea 10 0 January 08, 2025 1:00am March 26, 2025 1:35pm ondansetron ODT (Zofran-ODT) disintegrating tablet 4 mg (2 sources) Start: 01-26-2025 End: 01-27-2025 take 1 tablet by mouth every eight hours as needed for nausea and vomiting ondansetron ODT (Zofran-ODT) disintegrating tablet 4 mg polyethylene glycol 3350 08305 mg powder for oral solution (2 sources) Osmotic Laxative Start: 01-26-2025 End: 01-27-2025 take 17 g by mouth every twenty-four hours as needed for constipation microencapsulated potassium chloride 20 meq extended release oral tablet (12 sources) Start: 05-31-2025 End: 07-16-2025 prochlorperazine 10 mg oral tablet (20 sources) Phenothiazine Start: 04-04-2025 End: 07-16-2025 sertraline 50 mg oral tablet (20 sources) Serotonin Reuptake Inhibitor Start: 08-31-2023 End: 07-16-2025 Start: 01-26-2023 take 0.5 tablet by m [...] once a day Take 1 tablet by [facility] once daily. 5 ml sodium chloride 9 mg/ml injection (6 sources) Start: 01-26-2025 End: 01-27-2025 10 mL, IntraVENous, Every 12 hours scheduled (2 times per day), First dose on Wed01/26/25 at 2100, Phase II/On Unit Start: 01-26-2025 End: 01-27-2025 Start: 01-26-2025 End: 01-27-2025 sulfamethoxazole 800 mg / trimethoprim 160 mg oral tablet (20 sources) Dihydrofolate Reductase Inhibitor Antibacterial, Sulfonamide Antimicrobial Start: 01-08-2025 End: 03-26-2025 Start: 01-08-2025 End: 03-26-2025 Sulfamethoxazole-Trimethopri m (Bactrim Ds) 800-160 mg tablet Discontinued 1 {tbl} PO TWICE A DAY 20 10 January 08, 2025 1:00am March 26, 2025 [...] tablet (20 sources) Start: 1 End: 1 varenicline 1 mg oral tablet (12 sources) [...] joe th twice daily. After starter pack. (9 sources) Start: 05-31-2025 End: 07-16-2025 Start: 04-30-2025 End: 07-16-2025 Start: 04-04-2025 End: 07-16-2025 Problems Active Problems Problem Classification Problem Date Documented Da te Episodic/Chronic Acute bronchitis (1 source) Viral bronchitis; Translations: [Acute bronchitis due to other specified organisms] 03-23-2024 Episodic Adjustment disorders (2 sources) Adjustment disorder with anxious mood; Translations: [Adjustment disorder with anxiety] Chronic Administrative/social admission (1 source) Counseling, unspecified; Translations: [Counseling, unspecified] Onset: Episodic Allergic reactions (20 sources) Acral erythema due to cytotoxic therapy; [...] Resolved: 5 Chronic Comment on above: X2 Deficiency and other anemia (3 sources) Iron [...] loss (chronic)] Chronic Deficiency and other anemia (15 sources) Pancytopenia; Translations: [Other pancytopenia] 05-04-2025 Chronic Deficiency and other anemia (20 sources) Microcytic hypochromic anemia; Translations: [Iron deficiency anemia, unspecified] 06-10-2019 Episodic Deficiency and other anemia (20 sources) Anemia; Translations: [Anemia, unspecified] 05-03-2025 Episodic Deficiency and other anemia (20 sources) Iron deficiency anemia; Translations: [Iron deficiency anemia, unspecified] Episodic Deficiency and other anemia (8 sources) Deficiency and other anemia Diseases of white blood cells (20 sources) Febrile neutropenia; Translations: [Neutropenia, unspecified] Onset: 5 05-04-2025 Chronic Disorders of lipid metabolism (20 sources) Hyperlipidemia; Translations: [Hyperlipidemia, unspecified] Onset: 2 Resolved: 5 Chronic Comment on above: ON MED Esophageal disorders (2 sources) Gastroesophageal reflux disease without esophagitis; Translations: [Gastro-esophageal reflux disease without esophagitis] Chronic Essential hypertension (20 sources) Essential hypertension; Translations: [Essential (primary) hypertension] Onset: 5 05-21-2022 Chronic Comment on above: controlled on meds LAST ON MEDS 01/2025 Gastritis and duodenitis (20 sources) Gastritis; Translations: [Gastritis, unspecified, without bleeding] 06-10-2019 Episodic Gastrointestinal hemorrhage (1 source) Hematochezia; Translations: [Melena] Episodic Heart valve disorders (20 sources) Heart murmur; Translations: [Cardiac murmur, unspecified] Onset: 2 Resolved: 5 12-04-2022 Episodic Immunity disorders (17 sources) Patient immunocompromised; Translations: [Immunodeficiency, unspecified] 04-28-2025 Chronic Maintenance chemotherapy; radiotherapy (20 sources) Patient encounter status; Translations: [Encounter for antineoplastic chemotherapy] Onset: 5 05-10-2025 Chronic Menstrual disorders (20 sources) Menometrorrhagia; Translations: [Excessive and frequent menstruation with irregular cycle] Onset: 3 Chronic Mycoses (17 sources) Candidiasis of skin; Translations: [Candidiasis of [...] Onset: 5 01-26-2025 Episodic Other gastrointestinal disorders (20 sources) Constipation; Translations: [Constipation, unspecified] 06-07-2025 Episodic Other hematologic conditions (20 sources) History of anemia; Translations: [Personal history of diseases of the blood and blood-forming organs and certain disorders involving the immune mechanism] Onset: 3 11-30-2022 Episodic Other liver diseases (20 sources) Enzyme level - finding; Translations: [Elevated [...] [Tobacco use] 04-18-2025 Episodic Residual codes; unclassified (3 sources) Bilateral lower limb edema; Translations: [Localized edema] 08-09-2025 Episodic Residual codes; unclassified (3 sources) At risk of deep vein thrombosis; Translations: [Other specified personal risk factors, not elsewhere classified] 08-09-2025 Episodic Residual codes; unclassified (1 source) Localized edema; Translations: [Localized edema] Onset: 5 Episodic Residual codes; unclassified (1 source) Other specified personal risk factors, not elsewhere classified; Translations: [Other specified personal risk factors, not elsewhere classified] Onset: Episodic Secondary malignancies (1 source) Secondary [...] Patient; Translations: [New Patient] Onset: 5 Unclassified (3 sources) Primary leiomyosarcoma of pelvis Unclassified (1 source) Elevation of levels of liver transaminase levels; Translations: [Elevation of levels of liver transaminase levels] Onset: 5 Urinary tract infections (20 sources) Pyelonephritis; Translations: [Tubulo-interstitial nephritis, not specified as acute or chronic] Onset: 5 01-16-2025 Episodic Viral infection (1 source) Disease caused by 2019-nCoV; Translations: [COVID-19] Episodic Past or Other Problems Problem Classification Problem Date Documented Da te Episodic/Chronic Calculus of urinary tract (20 sources) Kidney stone; Translations: [Calculus of kidney] Onset: 5 03-28-2025 Episodic Comment on above: NO SURGERY Coronary atherosclerosis and other heart disease (2 sources) Presence of coronary angioplasty implant and graft; Translations: [Percutaneous transluminal coronary angioplasty status] Onset: 1 12-08-2022 Episodic Deficiency and other anemia (1 source) Anemia, unspecified; Translations: [Anemia, unspecified] Onset: 5 Episodic Diabetes mellitus without complication (20 sources) Hyperglycemia; Translations: [Hyperglycemia, unspecified] Onset: 2 Resolved: 5 Episodic E Codes: Adverse effects of medical drugs (1 source) Adverse effect of antineoplastic and immunosuppressive drugs, initial encounter; Translations: [Adverse effect of antineoplastic and immunosuppressive drugs, initial encounter] Onset: 5 Episodic Fever of unknown origin (18 sources) Fever; Translations: [Fever, unspecified] Onset: 5 04-28-2025 Episodic Fluid and electrolyte disorders (20 sources) Hypokalemia; Translations: [Hypokalemia] Onset: 5 05-31-2025 Episodic Genitourinary symptoms and ill-defined conditions (20 sources) Scalding pain on urination ; Translations: [Dysuria] Onset: 5 12-24-2024 Episodic Mood disorders (1 source) Mood disorders [...] and lump, unspecified site] Onset: 5 Episodic Residual codes; unclassified (1 source) Tobacco use; Translations: [Tobacco use] Onset: Episodic Results Test Name Value Interpretation Reference Range Facility MR/PAT.ANEon 09-21-2025 MR/PAT.ANE Normal [facility] CBC W/Diff, Automatedon 08-17 Absolute Lymph 1.77 X10 3/uL Normal 0.83-4.51 [facility] Comment on above: Performed By: #### L 501.5200, L100.0100, L501.2300, L500.4050 ####[facility] [address] [place], [address] Absolute Neut 2.8 X10 3/uL Normal 2.0-7.7 [facility] Comment on above: Performed By: #### L 501.5200, L100.0100, L501.2300, L500.4050 ####[facility] [address] [place], [address] Basophils/100 WBC (Bld) 1.5 % High 0-1 [facility] Comment on above: Performed By: #### L 501.5200, L100.0100, L501.2300, L500.4050 ####[facility] [address] [place], [address] Eosinophils/100 WBC (Bld) 4.0 % Normal 0-5 [facility] Comment on above: Performed By: #### L 501.5200, L100.0100, L501.2300, L500.4050 ####[facility] [address] [place], [address] Erythrocyte distribution width (RBC) [Ratio] 13.5 % Normal 11.6-14.6 [facility] Comment on above: Performed By: #### L 501.5200, L100.0100, L501.2300, L500.4050 ####[facility] [address] [place], [address] Hematocrit (Bld) [Volume fraction] 45.6 % Normal 37-47 [facility] Comment on above: Performed By: #### L 501.5200, L100.0100, L501.2300, L500.4050 ####[facility] [address] [place], [address] Hemoglobin (Bld) [Mass/Vol] 15.2 g/dL High 12.0-15.0 [facility] Comment on above: Performed By: #### L 501.5200, L100.0100, L501.2300, L500.4050 ####[facility] [address] [place], [address] IG% 0.200 Normal 0.0-0.9 [facility] Comment on above: Result Comment: IG% - Immature Granulocytes (promyelocytes, myelocytes andmetamyelocytes) > 1% indicates that a LEFT SHIFT is Present. Performed By: #### L 501.5200, L100.0100, L501.2300, L500.4050 ####[facility] [address] [place], [address] Lymphocytes/100 WBC (Bld) 33.8 % Normal 19-41 [facility] Comment on above: Performed By: #### L 501.5200, L100.0100, L501.2300, L500.4050 ####[facility] [address] [place], [address] MCH (RBC) [Entitic mass] 30.0 pg Normal 27.0-32.0 [facility] Comment on above: Performed By: #### L 501.5200, L100.0100, L501.2300, L500.4050 ####[facility] [address] [place], [address] MCHC (RBC) [Mass/Vol] 33.3 g/dL Normal 32-36 [facility] Comment on above: Performed By: #### L 501.5200, L100.0100, L501.2300, L500.4050 ####[facility] [address] [place], [address] MCV (RBC) [Entitic vol] 90.1 fL Normal 81-99 [facility] Comment on above: Performed By: #### L 501.5200, L100.0100, L501.2300, L500.4050 ####[facility] [address] [place], [address] Monocytes/100 WBC (Bld) 6.7 % Normal 0-10 [facility] Comment on above: Performed By: #### L 501.5200, L100.0100, L501.2300, L500.4050 ####[facility] [address] [place], [address] Neutrophils/100 WBC (Bld) 53.8 % Normal 47-70 [facility] Comment on above: Performed By: #### L 501.5200, L100.0100, L501.2300, L500.4050 ####[facility] [address] [place], [address] Nucleated RBC (Bld) [#/Vol] 0 10*3/uL Normal 0-5 [facility] Comment on above: Performed By: #### L 501.5200, L100.0100, L501.2300, L500.4050 ####[facility] [address] [place], [address] Platelet mean volume (Bld) [Entitic vol] 10.1 fL Normal 6.2-12.0 [facility] Comment on above: Performed By: #### L 501.5200, L100.0100, L501.2300, L500.4050 ####[facility] [address] [place], [address] Platelets (Bld) [#/Vol] 143 10*3/uL Low 150-450 [facility] Comment on above: Performed By: #### L 501.5200, L100.0100, L501.2300, L500.4050 ####[facility] [address] [place], [address] RBC (Bld) [#/Vol] 5.06 10*6/uL Normal 4.2-5.4 [facility] Comment on above: Performed By: #### L 501.5200, L100.0100, L501.2300, L500.4050 ####[facility] [address] [place], [address] RDW SD 44.1 fl High 35.1-43.9 [facility] Comment on above: Performed By: #### L 501.5200, L100.0100, L501.2300, L500.4050 ####[facility] [address] [place], [address] WBC (Bld) [#/Vol] 5.2 10*3/uL Normal 4.4-11.0 [facility] Comment on above: Performed By: #### L 501.5200, L100.0100, L501.2300, L500.4050 ####[facility] [address] [place], [address] Comprehensive Metabolic [facility] 09-13-2025 Albumin [Mass/Vol] 4.0 g/dL Normal 3.5-5.0 [facility] Comment on above: Performed By: #### L 501.5200, L100.0100, L501.2300, L500.4050 ####[facility] [address] [place], [address] Albumin/Globulin [Mass ratio] 1.2 {ratio} Normal 0.9-2.4 [facility] Comment on above: Performed By: #### L 501.5200, L100.0100, L501.2300, L500.4050 ####[facility] [address] [place], [address] ALK PHOS 109 U/L High 35-104 [facility] Comment on above: Performed By: #### L 501.5200, L100.0100, L501.2300, L500.4050 ####[facility] [address] [place], [address] ALT [Catalytic activity/Vol] 18 U/L Normal <=34 [facility] Comment on above: Performed By: #### L 501.5200, L100.0100, L501.2300, L500.4050 ####[facility] [address] [place], [address] AST [Catalytic activity/Vol] 20 U/L Normal <=31 [facility] Comment on above: Performed By: #### L 501.5200, L100.0100, L501.2300, L500.4050 ####[facility] [address] [place], [address] Bilirubin [Mass/Vol] 0.42 mg/dL Normal 0.00-1.30 [facility] Comment on above: Performed By: #### L 501.5200, L100.0100, L501.2300, L500.4050 ####[facility] [address] [place], [address] BUN/CRE 18.9 RATIO Normal 10-20 [facility] Comment on above: Performed By: #### L 501.5200, L100.0100, L501.2300, L500.4050 ####[facility] [address] [place], [address] Calcium [Mass/Vol] 9.5 mg/dL Normal 7.6-11.0 [facility] Comment on above: Performed By: #### L 501.5200, L100.0100, L501.2300, L500.4050 ####[facility] [address] [place], [address] Chloride [Moles/Vol] 105 mmol/L Normal 98-108 [facility] Comment on above: Performed By: #### L 501.5200, L100.0100, L501.2300, L500.4050 ####[facility] [address] [place], [address] CO2 [Moles/Vol] 25.4 mmol/L Normal 21.0-32.0 [facility] Comment on above: Performed By: #### L 501.5200, L100.0100, L501.2300, L500.4050 ####[facility] [address] [place], [address] Creatinine [Mass/Vol] 0.62 mg/dL Low 0.70-1.20 [facility] Comment on above: Performed By: #### L 501.5200, L100.0100, L501.2300, L500.4050 ####[facility] [address] [place], [address] ECRCL 118.84 ml/min Normal 50-250 [facility] Comment on above: Performed By: #### L 501.5200, L100.0100, L501.2300, L500.4050 ####[facility] [address] [place], [address] GAP 9 Normal 5-15 [facility] Comment on above: Performed By: #### L 501.5200, L100.0100, L501.2300, L500.4050 ####[facility] [address] [place], [address] GFR/1.73 sq M.predicted among non-blacks MDRD (S/P/Bld) [Vol rate/Area] 105 mL/min/{1.73_m2} Normal >60 [facility] Comment on above: Result Comment: mL/m in/1.73m2 CKD-EPI Creatinine Equation (2020) Performed By: #### L 501.5200, L100.0100, L501.2300, L500.4050 ####[facility] [address] [place], [address] Globulin (S) [Mass/Vol] 3.4 g/dL Normal 2.2-4.2 [facility] Comment on above: Performed By: #### L 501.5200, L100.0100, L501.2300, L500.4050 ####[facility] [address] [place], [address] Glucose [Mass/Vol] 100 mg/dL High 70-99 [facility] Comment on above: Performed By: #### L 501.5200, L100.0100, L501.2300, L500.4050 ####[facility] [address] [place], [address] Potassium [Moles/Vol] 4.0 mmol/L Normal 3.3-5.1 [facility] Comment on above: Performed By: #### L 501.5200, L100.0100, L501.2300, L500.4050 ####[facility] [address] [place], [address] Sodium [Moles/Vol] 140 mmol/L Normal 133-145 [facility] Comment on above: Performed By: #### L 501.5200, L100.0100, L501.2300, L500.4050 ####[facility] [address] [place], [address] T PROT 7.3 g/dL Normal 5.9-8.4 [facility] Comment on above: Performed By: #### L 501.5200, L100.0100, L501.2300, L500.4050 ####[facility] [address] [place], [address] Urea nitrogen [Mass/Vol] 12 mg/dL Normal 4-19 [facility] Comment on above: Performed By: #### L 501.5200, L100.0100, L501.2300, L500.4050 ####[facility] [address] [place], [address] Magnesiumon 09-13-2025 Magnesium [Mass/Vol] 2.1 mg/dL Normal 1.5-2.2 [facility] Comment on above: Performed By: #### L 501.5200, L100.0100, L501.2300, L500.4050 ####[facility] [address] [place], [address] Oncology Visit Reporton 08-17 Oncology Visit Report Normal [facility] Phosphoruson 09-13-2025 Phosphate [Mass/Vol] 4.4 mg/dL Normal 2.7-4.5 [facility] Comment on above: Performed By: #### L 501.5200, L100.0100, L501.2300, L500.4050 ####[facility] [address] [place], [address] Absolute lymphocyte countOrd ered By: Imani Persaud on 08-16-2025 Lymphocytes Auto (Unsp spec) [#/Vol] 1.33 10*3/uL 0.83-4.51 [facility] Anion gap in Serum or Plasma Ordered By: Imani Persaud on 08-16-2025 Anion gap [Moles/Vol] 9 mmol/L 5-15 [facility] Automated lymphocyte count a s percentage of total leukocytesOrdered By: Imani Persaud on 08-16-2025 Lymphocytes/100 WBC Auto (Unsp spec) 30.5 % 19-41 [facility] BUN/creatinine ratioOrdered By: Imani Persaud on 08-16-2025 Urea nitrogen/Creatinine [Mass ratio] 19.6 mg/mg 09-03 [facility] Basophil percentageOrdered B y: Imani Persaud on 08-16-2025 Basophils/100 WBC (Bld) 1.8 % High 0-1 [facility] Bilirubin, totalOrdered By: Imani Persaud on 08-16-2025 Bilirubin [Mass/Vol] 0.47 mg/dL 0.00-1.30 [facility] CBC W/Diff, Automatedon Absolute Lymph 1.33 X10 3/uL Normal 0.83-4.51 [facility] Comment on above: Performed By: #### L 100.0100, L501.5200, L500.4050, L501.2300 ####[facility] [address] [place], [address] Absolute Neut 2.4 X10 3/uL Normal 2.0-7.7 [facility] Comment on above: Performed By: #### L 100.0100, L501.5200, L500.4050, L501.2300 ####[facility] [address] [place], [address] Basophils/100 WBC (Bld) 1.8 % High 0-1 [facility] Comment on above: Performed By: #### L 100.0100, L501.5200, L500.4050, L501.2300 ####[facility] [address] [place], [address] Eosinophils/100 WBC (Bld) 4.6 % Normal 0-5 [facility] Comment on above: Performed By: #### L 100.0100, L501.5200, L500.4050, L501.2300 ####[facility] [address] [place], [address] Erythrocyte distribution width (RBC) [Ratio] 14.5 % Normal 11.6-14.6 [facility] Comment on above: Performed By: #### L 100.0100, L501.5200, L500.4050, L501.2300 ####[facility] [address] [place], [address] Hematocrit (Bld) [Volume fraction] 45.3 % Normal 37-47 [facility] Comment on above: Performed By: #### L 100.0100, L501.5200, L500.4050, L501.2300 ####[facility] [address] [place], [address] Hemoglobin (Bld) [Mass/Vol] 14.8 g/dL Normal 12.0-15.0 [facility] Comment on above: Performed By: #### L 100.0100, L501.5200, L500.4050, L501.2300 ####[facility] [address] [place], [address] IG% 0.200 Normal 0.0-0.9 [facility] Comment on above: Result Comment: IG% - Immature Granulocytes (promyelocytes, myelocytes andmetamyelocytes) > 1% indicates that a LEFT SHIFT is Present. Performed By: #### L 100.0100, L501.5200, L500.4050, L501.2300 ####[facility] [address] [place], [address] Lymphocytes/100 WBC (Bld) 30.5 % Normal 19-41 [facility] Comment on above: Performed By: #### L 100.0100, L501.5200, L500.4050, L501.2300 ####[facility] [address] [place], [address] MCH (RBC) [Entitic mass] 31.2 pg Normal 27.0-32.0 [facility] Comment on above: Performed By: #### L 100.0100, L501.5200, L500.4050, L501.2300 ####[facility] [address] [place], [address] MCHC (RBC) [Mass/Vol] 32.7 g/dL Normal 32-36 [facility] Comment on above: Performed By: #### L 100.0100, L501.5200, L500.4050, L501.2300 ####[facility] [address] [place], [address] MCV (RBC) [Entitic vol] 95.4 fL Normal 81-99 [facility] Comment on above: Performed By: #### L 100.0100, L501.5200, L500.4050, L501.2300 ####[facility] [address] [place], [address] Monocytes/100 WBC (Bld) 7.6 % Normal 0-10 [facility] Comment on above: Performed By: #### L 100.0100, L501.5200, L500.4050, L501.2300 ####[facility] [address] [place], [address] Neutrophils/100 WBC (Bld) 55.3 % Normal 47-70 [facility] Comment on above: Performed By: #### L 100.0100, L501.5200, L500.4050, L501.2300 ####[facility] [address] [place], [address] Nucleated RBC (Bld) [#/Vol] 0 10*3/uL Normal 0-5 [facility] Comment on above: Performed By: #### L 100.0100, L501.5200, L500.4050, L501.2300 ####[facility] [address] [place], [address] Platelet mean volume (Bld) [Entitic vol] 9.8 fL Normal 6.2-12.0 [facility] Comment on above: Performed By: #### L 100.0100, L501.5200, L500.4050, L501.2300 ####[facility] [address] [place], [address] Platelets (Bld) [#/Vol] 166 10*3/uL Normal 150-450 [facility] Comment on above: Performed By: #### L 100.0100, L501.5200, L500.4050, L501.2300 ####[facility] [address] [place], [address] RBC (Bld) [#/Vol] 4.75 10*6/uL Normal 4.2-5.4 [facility] Comment on above: Performed By: #### L 100.0100, L501.5200, L500.4050, L501.2300 ####[facility] [address] [place], [address] RDW SD 50.7 fl High 35.1-43.9 [facility] Comment on above: Performed By: #### L 100.0100, L501.5200, L500.4050, L501.2300 ####[facility] [address] [place], [address] WBC (Bld) [#/Vol] 4.4 10*3/uL Normal 4.4-11.0 [facility] Comment on above: Performed By: #### L 100.0100, L501.5200, L500.4050, L501.2300 ####[facility] [address] [place], [address] Carbon dioxide, total [Moles /volume] in Central venous bloodOrdered By: Imani Persaud on 08-16-2025 CO2 [Moles/Vol] 24.3 mmol/L 21.0-32.0 [facility] Chloride assayOrdered By: Jonatan Persaud on 08-16-2025 Chloride [Moles/Vol] 104 mmol/L 98-108 [facility] Comprehensive Metabolic Prof ilon 08-16-2025 Albumin [Mass/Vol] 4.1 g/dL Normal 3.5-5.0 [facility] Comment on above: Performed By: #### L 100.0100, L501.5200, L500.4050, L501.2300 ####[facility] [address] [place], [address] Albumin/Globulin [Mass ratio] 1.3 {ratio} Normal 0.9-2.4 [facility] Comment on above: Performed By: #### L 100.0100, L501.5200, L500.4050, L501.2300 ####[facility] [address] [place], [address] ALK PHOS 93 U/L Normal 35-104 [facility] Comment on above: Performed By: #### L 100.0100, L501.5200, L500.4050, L501.2300 ####[facility] [address] [place], [address] ALT [Catalytic activity/Vol] 14 U/L Normal <=34 [facility] Comment on above: Performed By: #### L 100.0100, L501.5200, L500.4050, L501.2300 ####[facility] [address] [place], [address] AST [Catalytic activity/Vol] 23 U/L Normal <=31 [facility] Comment on above: Performed By: #### L 100.0100, L501.5200, L500.4050, L501.2300 ####[facility] [address] [place], [address] Bilirubin [Mass/Vol] 0.47 mg/dL Normal 0.00-1.30 [facility] Comment on above: Performed By: #### L 100.0100, L501.5200, L500.4050, L501.2300 ####[facility] [address] [place], [address] BUN/CRE 19.6 RATIO Normal 10-20 [facility] Comment on above: Performed By: #### L 100.0100, L501.5200, L500.4050, L501.2300 ####[facility] [address] [place], [address] Calcium [Mass/Vol] 9.5 mg/dL Normal 7.6-11.0 [facility] Comment on above: Performed By: #### L 100.0100, L501.5200, L500.4050, L501.2300 ####[facility] [address] [place], [address] Chloride [Moles/Vol] 104 mmol/L Normal 98-108 [facility] Comment on above: Performed By: #### L 100.0100, L501.5200, L500.4050, L501.2300 ####[facility] [address] [place], [address] CO2 [Moles/Vol] 24.3 mmol/L Normal 21.0-32.0 [facility] Comment on above: Performed By: #### L 100.0100, L501.5200, L500.4050, L501.2300 ####[facility] [address] [place], [address] Creatinine [Mass/Vol] 0.54 mg/dL Low 0.70-1.20 [facility] Comment on above: Performed By: #### L 100.0100, L501.5200, L500.4050, L501.2300 ####[facility] [address] [place], [address] ECRCL 138.18 ml/min Normal 50-250 [facility] Comment on above: Performed By: #### L 100.0100, L501.5200, L500.4050, L501.2300 ####[facility] [address] [place], [address] GAP 9 Normal 5-15 [facility] Comment on above: Performed By: #### L 100.0100, L501.5200, L500.4050, L501.2300 ####[facility] [address] [place], [address] GFR/1.73 sq M.predicted among non-blacks MDRD (S/P/Bld) [Vol rate/Area] 109 mL/min/{1.73_m2} Normal >60 [facility] Comment on above: Result Comment: mL/m in/1.73m2 CKD-EPI Creatinine Equation (2020) Performed By: #### L 100.0100, L501.5200, L500.4050, L501.2300 ####[facility] [address] [place], [address] Globulin (S) [Mass/Vol] 3.1 g/dL Normal 2.2-4.2 [facility] Comment on above: Performed By: #### L 100.0100, L501.5200, L500.4050, L501.2300 ####[facility] [address] [place], [address] Glucose [Mass/Vol] 101 mg/dL High 70-99 [facility] Comment on above: Performed By: #### L 100.0100, L501.5200, L500.4050, L501.2300 ####[facility] [address] [place], [address] Potassium [Moles/Vol] 4.5 mmol/L Normal 3.3-5.1 [facility] Comment on above: Performed By: #### L 100.0100, L501.5200, L500.4050, L501.2300 ####[facility] [address] [place], [address] Sodium [Moles/Vol] 138 mmol/L Normal 133-145 [facility] Comment on above: Performed By: #### L 100.0100, L501.5200, L500.4050, L501.2300 ####[facility] [address] [place], [address] T PROT 7.2 g/dL Normal 5.9-8.4 [facility] Comment on above: Performed By: #### L 100.0100, L501.5200, L500.4050, L501.2300 ####[facility] [address] [place], [address] Urea nitrogen [Mass/Vol] 11 mg/dL Normal 4-19 [facility] Comment on above: Performed By: #### L 100.0100, L501.5200, L500.4050, L501.2300 ####[facility] [address] [place], [address] Eosinophil percentageOrdered By: Imani Persaud on 08-16-2025 Eosinophils/100 WBC (Bld) 4.6 % 0-5 [facility] Erythrocyte distribution wid th ratioOrdered By: Imani Persaud on 08-16-2025 Erythrocyte distribution width (RBC) [Ratio] 14.5 % 11.6-14.6 [facility] Erythrocyte distribution wid th standard deviationOrdered By: Imani Persaud on 08-16-2025 Erythrocyte distribution width (RBC) [Ratio] 50.7 fl High 35.1-43.9 [facility] Glomerular filtration rate ( GFR) estimation/1.73 sq m using serum, plasma, or whole bOrdered By: Imani Persaud on 08-16-2025 GFR/1.73 sq M.predicted among non-blacks MDRD (S/P/Bld) [Vol rate/Area] 109 mL/min/{1.73_m2} >60 [facility] Hematocrit Auto (Bld) [Volum e fraction]Ordered By: Imani Persaud on 08-16-2025 Hematocrit (Bld) [Volume fraction] 45.3 % 37-47 [facility] Hemoglobin measurementOrdere d By: Imani Persaud on 08-16-2025 Hemoglobin (Bld) [Mass/Vol] 14.8 g/dL 12.0-15.0 [facility] Immature granulocytes/100 WB C Auto (Bld)Ordered By: [facility] Pers[facility] on 08-16-2025 Immature granulocytes/100 WBC (Bld) 0.200 % 0.0-0.9 [facility] MCV (mean corpuscular volume ) determinationOrdered By: Imani Persaud on 08-16-2025 MCV (RBC) [Entitic vol] 95.4 fL 81-99 [facility] Magnesiumon 08-16-2025 Magnesium [Mass/Vol] 2.0 mg/dL Normal 1.5-2.2 [facility] Comment on above: Performed By: #### L 100.0100, L501.5200, L500.4050, L501.2300 ####[facility] [address] [place], [address] Magnesium measurement (mass/ volume)Ordered By: [facility] Pers[facility] on 08-16-2025 Magnesium (Unsp spec) [Mass/Vol] 2.0 mg/dL 1.5-2.2 [facility] Mean corpuscular hemoglobin (MCH) determinationOrdered By: [facility] Persaud on 08-16-2025 MCH (RBC) [Entitic mass] 31.2 pg 27.0-32.0 [facility] Monocyte percentageOrdered B y: Imani Persaud on 08-16-2025 Monocytes/100 WBC (Bld) 7.6 % 0-10 [facility] Neutrophil percentageOrdered By: [facility] Pers[facility] on 08-16-2025 Neutrophils/100 WBC (Bld) 55.3 % 47-70 [facility] No Panel InformationOrdered By: [facility] Persaud on 08-16-2025 23 U/L <32 [facility] Oncology Visit Reporton 10-5 Oncology Visit Report Normal [facility] Phosphoruson 08-16-2025 Phosphate [Mass/Vol] 4.2 mg/dL Normal 2.7-4.5 [facility] Comment on above: Performed By: #### L 100.0100, L501.5200, L500.4050, L501.2300 ####[facility] [address] [place], [address] Platelet countOrdered By: Jonatan Persaud on 08-16-2025 Platelets (Bld) [#/Vol] 166 10*3/uL 150-450 [facility] Potassium measurement (mass/ volume)Ordered By: Imani Persaud on 08-16-2025 Potassium (Unsp spec) [Mass/Vol] 4.5 mmol/L 3.3-5.1 [facility] RBC Auto (Bld) [#/Vol]Ordere d By: Imani Persaud on 08-16-2025 RBC (Bld) [#/Vol] 4.75 10*6/uL 4.2-5.4 [facility] Serum creatinine measurement (mass/volume)Ordered By: Imani Persaud on 08-16-2025 Creatinine [Mass/Vol] 0.54 mg/dL Low 0.70-1.20 [facility] Serum globulin measurementOr dered By: Imani Persaud on 08-16-2025 Globulin (S) [Mass/Vol] 3.1 g/dL 2.2-4.2 [facility] Serum glucose measurement (m ass/volume)Ordered By: Imani Persaud on 08-16-2025 Glucose [Mass/Vol] 101 mg/dL High 70-99 [facility] Serum or plasma alanine del rio otransferase (ALT) measurementOrdered By: Imani Persaud on 08-16-2025 ALT [Catalytic activity/Vol] 14 U/L <35 [facility] Serum or plasma albumin cass urement (mass/volume)Ordered By: Imani Persaud on 08-16-2025 Albumin [Mass/Vol] 4.1 g/dL 3.5-5.0 [facility] Serum or plasma albumin/glob ulin mass ratioOrdered By: Imani Persaud on 08-16-2025 Albumin/Globulin [Mass ratio] 1.3 {ratio} 0.9-2.4 [facility] Serum or plasma alkaline tre sphatase measurementOrdered By: Imani Persaud on 08-16-2025 ALP [Catalytic activity/Vol] 93 U/L 35-104 [facility] Serum or plasma calcium cass urement (mass/volume)Ordered By: Imani Persaud on 08-16-2025 Calcium [Mass/Vol] 9.5 mg/dL 7.6-11.0 [facility] Serum or plasma urea nitroge n measurement (mass/volume)Ordered By: Imani Persaud on 08-16-2025 Urea nitrogen [Mass/Vol] 11 mg/dL 4-19 [facility] Sodium levelOrdered By: Jennifer Persaud on 08-16-2025 Sodium [Moles/Vol] 138 mmol/L 133-145 [facility] Total proteinOrdered By: Lonnie Persaud on 08-16-2025 Protein [Mass/Vol] 7.2 g/dL 5.9-8.4 [facility] White blood cell (WBC) count Ordered By: Imani Persaud on 08-16-2025 WBC (Bld) [#/Vol] 4.4 10*3/uL 4.4-11.0 [facility] CT Chest, Abd, Pel w/Contras ton 08-09-2025 CT Chest, Abd, Pel w/Contrast Normal [facility] Oncology Visit Reporton 07-17 Oncology Visit Report Normal [facility] Venous Duplex US - Ervin Extre mon 08-09-2025 Venous Duplex US - Ervin Extrem Normal [facility] Venous duplex ultrasound rep ortOrdered By: Chema Paulino on 08-09-2025 US Vein [facility] Work Phone: [phone] CBC W/Diff, Automatedon 07-16 PATH REV Reviewed Normal [facility] Comment on above: Result Comment: SEE REPORT IN PATIENT'S EMR AMENDED REPORT 08/01/25 [id number] PATH REV previously reported as: Susan turner Performed By: #### L 500.4050, L100.0100, L503.6005, L503.7505, L300.3900, L300.4310 ####[facility] [address] [place], [address] Basic Metabolic Profile (BMP )on 2025 BUN Normal 4-19 [facility] Comment on above: Result Comment: Canc elled via OM: Order cancelled - Patient discharged Performed By: #### L 500.2500, L100.0100 ####[facility] [address] [place], [address] BUN/CRE Normal 10-20 [facility] Comment on above: Result Comment: Canc elled via OM: Order cancelled - Patient discharged Performed By: #### L 500.2500, L100.0100 ####[facility] [address] [place], [address] Calcium Normal 7.6-11.0 [facility] Comment on above: Result Comment: Canc elled via OM: Order cancelled - Patient discharged Performed By: #### L 500.2500, L100.0100 ####[facility] [address] [place], [address] CL Normal 98-108 [facility] Comment on above: Result Comment: Canc elled via OM: Order cancelled - Patient discharged Performed By: #### L 500.2500, L100.0100 ####[facility] [address] [place], [address] CO2 Normal 21.0-32.0 [facility] Comment on above: Result Comment: Canc elled via OM: Order cancelled - Patient discharged Performed By: #### L 500.2500, L100.0100 ####[facility] [address] [place], [address] CREAT,SERUM Normal 0.70-1.20 [facility] Comment on above: Result Comment: Canc elled via OM: Order cancelled - Patient discharged Performed By: #### L 500.2500, L100.0100 ####[facility] [address] [place], [address] eGFR Normal >60 [facility] Comment on above: Result Comment: Canc elled via OM: Order cancelled - Patient discharged Performed By: #### L 500.2500, L100.0100 ####[facility] [address] [place], [address] GAP Normal 5-15 [facility] Comment on above: Result Comment: Canc elled via OM: Order cancelled - Patient discharged Performed By: #### L 500.2500, L100.0100 ####[facility] [address] [place], [address] GLU Normal 70-99 [facility] Comment on above: Result Comment: Canc elled via OM: Order cancelled - Patient discharged Performed By: #### L 500.2500, L100.0100 ####[facility] [address] [place], [address] Potassium Normal 3.3-5.1 [facility] Comment on above: Result Comment: Canc elled via OM: Order cancelled - Patient discharged Performed By: #### L 500.2500, L100.0100 ####[facility] [address] [place], [address] Basic Metabolic Profile (BMP) Normal 133-145 [facility] Comment on above: Result Comment: Canc elled via OM: Order cancelled - Patient discharged Performed By: #### L 500.2500, L100.0100 ####[facility] [address] [place], [address] CBC W/Diff, Automatedon 09-1 0-2024 Absolute Neut Normal 2.0-7.7 [facility] Comment on above: Result Comment: Canc elled via OM: Order cancelled - Patient discharged Performed By: #### L 500.2500, L100.0100 ####[facility] [address] [place], [address] HCT Normal 37-47 [facility] Comment on above: Result Comment: Canc elled via OM: Order cancelled - Patient discharged Performed By: #### L 500.2500, L100.0100 ####[facility] [address] [place], [address] HGB Normal 12.0-15.0 [facility] Comment on above: Result Comment: Canc elled via OM: Order cancelled - Patient discharged Performed By: #### L 500.2500, L100.0100 ####[facility] [address] [place], [address] MCH Normal 27.0-32.0 [facility] Comment on above: Result Comment: Canc elled via OM: Order cancelled - Patient discharged Performed By: #### L 500.2500, L100.0100 ####[facility] [address] [place], [address] MCHC Normal 32-36 [facility] Comment on above: Result Comment: Canc elled via OM: Order cancelled - Patient discharged Performed By: #### L 500.2500, L100.0100 ####[facility] [address] [place], [address] MCV Normal 81-99 [facility] Comment on above: Result Comment: Canc elled via OM: Order cancelled - Patient discharged Performed By: #### L 500.2500, L100.0100 ####[facility] [address] [place], [address] NEUT% Normal 47-70 [facility] Comment on above: Result Comment: Canc elled via OM: Order cancelled - Patient discharged Performed By: #### L 500.2500, L100.0100 ####[facility] [address] [place], [address] PLT Normal 150-450 [facility] Comment on above: Result Comment: Canc elled via OM: Order cancelled - Patient discharged Performed By: #### L 500.2500, L100.0100 ####[facility] [address] [place], [address] RBC Normal 4.2-5.4 [facility] Comment on above: Result Comment: Canc elled via OM: Order cancelled - Patient discharged Performed By: #### L 500.2500, L100.0100 ####[facility] [address] [place], [address] RDW CV Normal 11.6-14.6 [facility] Comment on above: Result Comment: Canc elled via OM: Order cancelled - Patient discharged Performed By: #### L 500.2500, L100.0100 ####[facility] [address] [place], [address] RDW SD Normal 35.1-43.9 [facility] Comment on above: Result Comment: Canc elled via OM: Order cancelled - Patient discharged Performed By: #### L 500.2500, L100.0100 ####[facility] [address] [place], [address] WBC Normal 4.4-11.0 [facility] Comment on above: Result Comment: Canc elled via OM: Order cancelled - Patient discharged Performed By: #### L 500.2500, L100.0100 ####[facility] [address] [place], [address] Basic Metabolic Profile (BMP )on 07-24-2025 BUN Normal 4-19 [facility] Comment on above: Result Comment: Canc elled via OM: Order cancelled - Patient discharged Performed By: #### L 500.2500, L100.0100 ####[facility] [address] [place], [address] BUN/CRE Normal 10-20 [facility] Comment on above: Result Comment: Canc elled via OM: Order cancelled - Patient discharged Performed By: #### L 500.2500, L100.0100 ####[facility] [address] [place], [address] Calcium Normal 7.6-11.0 [facility] Comment on above: Result Comment: Canc elled via OM: Order cancelled - Patient discharged Performed By: #### L 500.2500, L100.0100 ####[facility] [address] [place], [address] CL Normal 98-108 [facility] Comment on above: Result Comment: Canc elled via OM: Order cancelled - Patient discharged Performed By: #### L 500.2500, L100.0100 ####[facility] [address] [place], [address] CO2 Normal 21.0-32.0 [facility] Comment on above: Result Comment: Canc elled via OM: Order cancelled - Patient discharged Performed By: #### L 500.2500, L100.0100 ####[facility] [address] [place], [address] CREAT,SERUM Normal 0.70-1.20 [facility] Comment on above: Result Comment: Canc elled via OM: Order cancelled - Patient discharged Performed By: #### L 500.2500, L100.0100 ####[facility] [address] [place], [address] eGFR Normal >60 [facility] Comment on above: Result Comment: Canc elled via OM: Order cancelled - Patient discharged Performed By: #### L 500.2500, L100.0100 ####[facility] [address] [place], [address] GAP Normal 5-15 [facility] Comment on above: Result Comment: Canc elled via OM: Order cancelled - Patient discharged Performed By: #### L 500.2500, L100.0100 ####[facility] [address] [place], [address] GLU Normal 70-99 [facility] Comment on above: Result Comment: Canc elled via OM: Order cancelled - Patient discharged Performed By: #### L 500.2500, L100.0100 ####[facility] [address] [place], [address] Potassium Normal 3.3-5.1 [facility] Comment on above: Result Comment: Canc elled via OM: Order cancelled - Patient discharged Performed By: #### L 500.2500, L100.0100 ####[facility] [address] [place], [address] Basic Metabolic Profile (BMP) Normal 133-145 [facility] Comment on above: Result Comment: Canc elled via OM: Order cancelled - Patient discharged Performed By: #### L 500.2500, L100.0100 ####[facility] [address] [place], [address] CBC W/Diff, Automatedon 09-0 -2024 Absolute Neut Normal 2.0-7.7 [facility] Comment on above: Result Comment: Canc elled via OM: Order cancelled - Patient discharged Performed By: #### L 500.2500, L100.0100 ####[facility] [address] [place], [address] HCT Normal 37-47 [facility] Comment on above: Result Comment: Canc elled via OM: Order cancelled - Patient discharged Performed By: #### L 500.2500, L100.0100 ####[facility] [address] [place], [address] HGB Normal 12.0-15.0 [facility] Comment on above: Result Comment: Canc elled via OM: Order cancelled - Patient discharged Performed By: #### L 500.2500, L100.0100 ####[facility] [address] [place], [address] MCH Normal 27.0-32.0 [facility] Comment on above: Result Comment: Canc elled via OM: Order cancelled - Patient discharged Performed By: #### L 500.2500, L100.0100 ####[facility] [address] [place], [address] MCHC Normal 32-36 [facility] Comment on above: Result Comment: Canc elled via OM: Order cancelled - Patient discharged Performed By: #### L 500.2500, L100.0100 ####[facility] [address] [place], [address] MCV Normal 81-99 [facility] Comment on above: Result Comment: Canc elled via OM: Order cancelled - Patient discharged Performed By: #### L 500.2500, L100.0100 ####[facility] [address] [place], [address] NEUT% Normal 47-70 [facility] Comment on above: Result Comment: Canc elled via OM: Order cancelled - Patient discharged Performed By: #### L 500.2500, L100.0100 ####[facility] [address] [place], [address] PLT Normal 150-450 [facility] Comment on above: Result Comment: Canc elled via OM: Order cancelled - Patient discharged Performed By: #### L 500.2500, L100.0100 ####[facility] [address] [place], [address] RBC Normal 4.2-5.4 [facility] Comment on above: Result Comment: Canc elled via OM: Order cancelled - Patient discharged Performed By: #### L 500.2500, L100.0100 ####[facility] [address] [place], [address] RDW CV Normal 11.6-14.6 [facility] Comment on above: Result Comment: Canc elled via OM: Order cancelled - Patient discharged Performed By: #### L 500.2500, L100.0100 ####[facility] [address] [place], [address] RDW SD Normal 35.1-43.9 [facility] Comment on above: Result Comment: Canc elled via OM: Order cancelled - Patient discharged Performed By: #### L 500.2500, L100.0100 ####[facility] [address] [place], [address] WBC Normal 4.4-11.0 [facility] Comment on above: Result Comment: Canc elled via OM: Order cancelled - Patient discharged Performed By: #### L 500.2500, L100.0100 ####[facility] [address] [place], [address] Basic Metabolic Profile (BMP )on 07-23-2025 BUN Normal 4-19 [facility] Comment on above: Result Comment: Canc elled via OM: Order cancelled - Patient discharged Performed By: #### L 100.0100, L500.2500 ####[facility] [address] [place], [address] BUN/CRE Normal 10-20 [facility] Comment on above: Result Comment: Canc elled via OM: Order cancelled - Patient discharged Performed By: #### L 100.0100, L500.2500 ####[facility] [address] [place], [address] Calcium Normal 7.6-11.0 [facility] Comment on above: Result Comment: Canc elled via OM: Order cancelled - Patient discharged Performed By: #### L 100.0100, L500.2500 ####[facility] [address] [place], [address] CL Normal 98-108 [facility] Comment on above: Result Comment: Canc elled via OM: Order cancelled - Patient discharged Performed By: #### L 100.0100, L500.2500 ####[facility] [address] [place], [address] CO2 Normal 21.0-32.0 [facility] Comment on above: Result Comment: Canc elled via OM: Order cancelled - Patient discharged Performed By: #### L 100.0100, L500.2500 ####[facility] [address] [place], [address] CREAT,SERUM Normal 0.70-1.20 [facility] Comment on above: Result Comment: Canc elled via OM: Order cancelled - Patient discharged Performed By: #### L 100.0100, L500.2500 ####[facility] [address] [place], [address] eGFR Normal >60 [facility] Comment on above: Result Comment: Canc elled via OM: Order cancelled - Patient discharged Performed By: #### L 100.0100, L500.2500 ####[facility] [address] [place], [address] GAP Normal 5-15 [facility] Comment on above: Result Comment: Canc elled via OM: Order cancelled - Patient discharged Performed By: #### L 100.0100, L500.2500 ####[facility] [address] [place], [address] GLU Normal 70-99 [facility] Comment on above: Result Comment: Canc elled via OM: Order cancelled - Patient discharged Performed By: #### L 100.0100, L500.2500 ####[facility] [address] [place], [address] Potassium Normal 3.3-5.1 [facility] Comment on above: Result Comment: Canc elled via OM: Order cancelled - Patient discharged Performed By: #### L 100.0100, L500.2500 ####[facility] [address] [place], [address] Basic Metabolic Profile (BMP) Normal 133-145 [facility] Comment on above: Result Comment: Canc elled via OM: Order cancelled - Patient discharged Performed By: #### L 100.0100, L500.2500 ####[facility] [address] [place], [address] CBC W/Diff, Automatedon 09-0 -2024 Absolute Neut Normal 2.0-7.7 [facility] Comment on above: Result Comment: Canc elled via OM: Order cancelled - Patient discharged Performed By: #### L 100.0100, L500.2500 ####[facility] [address] [place], [address] HCT Normal 37-47 [facility] Comment on above: Result Comment: Canc elled via OM: Order cancelled - Patient discharged Performed By: #### L 100.0100, L500.2500 ####[facility] [address] [place], [address] HGB Normal 12.0-15.0 [facility] Comment on above: Result Comment: Canc elled via OM: Order cancelled - Patient discharged Performed By: #### L 100.0100, L500.2500 ####[facility] [address] [place], [address] MCH Normal 27.0-32.0 [facility] Comment on above: Result Comment: Canc elled via OM: Order cancelled - Patient discharged Performed By: #### L 100.0100, L500.2500 ####[facility] [address] [place], [address] MCHC Normal 32-36 [facility] Comment on above: Result Comment: Canc elled via OM: Order cancelled - Patient discharged Performed By: #### L 100.0100, L500.2500 ####[facility] [address] [place], [address] MCV Normal 81-99 [facility] Comment on above: Result Comment: Canc elled via OM: Order cancelled - Patient discharged Performed By: #### L 100.0100, L500.2500 ####[facility] [address] [place], [address] NEUT% Normal 47-70 [facility] Comment on above: Result Comment: Canc elled via OM: Order cancelled - Patient discharged Performed By: #### L 100.0100, L500.2500 ####[facility] [address] [place], [address] PLT Normal 150-450 [facility] Comment on above: Result Comment: Canc elled via OM: Order cancelled - Patient discharged Performed By: #### L 100.0100, L500.2500 ####[facility] [address] [place], [address] RBC Normal 4.2-5.4 [facility] Comment on above: Result Comment: Canc elled via OM: Order cancelled - Patient discharged Performed By: #### L 100.0100, L500.2500 ####[facility] [address] [place], [address] RDW CV Normal 11.6-14.6 [facility] Comment on above: Result Comment: Canc elled via OM: Order cancelled - Patient discharged Performed By: #### L 100.0100, L500.2500 ####[facility] [address] [place], [address] RDW SD Normal 35.1-43.9 [facility] Comment on above: Result Comment: Canc elled via OM: Order cancelled - Patient discharged Performed By: #### L 100.0100, L500.2500 ####[facility] [address] [place], [address] WBC Normal 4.4-11.0 [facility] Comment on above: Result Comment: Canc elled via OM: Order cancelled - Patient discharged Performed By: #### L 100.0100, L500.2500 ####[facility] [address] [place], [address] Basic Metabolic Profile (BMP )on 07-22-2025 BUN Normal 4-19 [facility] Comment on above: Result Comment: Canc elled via OM: Order cancelled - Patient discharged Performed By: #### L 100.0100, L500.2500 ####[facility] [address] [place], [address] BUN/CRE Normal 10-20 [facility] Comment on above: Result Comment: Canc elled via OM: Order cancelled - Patient discharged Performed By: #### L 100.0100, L500.2500 ####[facility] [address] [place], [address] Calcium Normal 7.6-11.0 [facility] Comment on above: Result Comment: Canc elled via OM: Order cancelled - Patient discharged Performed By: #### L 100.0100, L500.2500 ####[facility] [address] [place], [address] CL Normal 98-108 [facility] Comment on above: Result Comment: Canc elled via OM: Order cancelled - Patient discharged Performed By: #### L 100.0100, L500.2500 ####[facility] [address] [place], [address] CO2 Normal 21.0-32.0 [facility] Comment on above: Result Comment: Canc elled via OM: Order cancelled - Patient discharged Performed By: #### L 100.0100, L500.2500 ####[facility] [address] [place], [address] CREAT,SERUM Normal 0.70-1.20 [facility] Comment on above: Result Comment: Canc elled via OM: Order cancelled - Patient discharged Performed By: #### L 100.0100, L500.2500 ####[facility] [address] [place], [address] eGFR Normal >60 [facility] Comment on above: Result Comment: Canc elled via OM: Order cancelled - Patient discharged Performed By: #### L 100.0100, L500.2500 ####[facility] [address] [place], [address] GAP Normal 5-15 [facility] Comment on above: Result Comment: Canc elled via OM: Order cancelled - Patient discharged Performed By: #### L 100.0100, L500.2500 ####[facility] [address] [place], [address] GLU Normal 70-99 [facility] Comment on above: Result Comment: Canc elled via OM: Order cancelled - Patient discharged Performed By: #### L 100.0100, L500.2500 ####[facility] [address] [place], [address] Potassium Normal 3.3-5.1 [facility] Comment on above: Result Comment: Canc elled via OM: Order cancelled - Patient discharged Performed By: #### L 100.0100, L500.2500 ####[facility] [address] [place], [address] Basic Metabolic Profile (BMP) Normal 133-145 [facility] Comment on above: Result Comment: Canc elled via OM: Order cancelled - Patient discharged Performed By: #### L 100.0100, L500.2500 ####[facility] [address] [place], [address] CBC W/Diff, Automatedon 09-0 -2024 Absolute Neut Normal 2.0-7.7 [facility] Comment on above: Result Comment: Canc elled via OM: Order cancelled - Patient discharged Performed By: #### L 100.0100, L500.2500 ####[facility] [address] [place], [address] HCT Normal 37-47 [facility] Comment on above: Result Comment: Canc elled via OM: Order cancelled - Patient discharged Performed By: #### L 100.0100, L500.2500 ####[facility] [address] [place], [address] HGB Normal 12.0-15.0 [facility] Comment on above: Result Comment: Canc elled via OM: Order cancelled - Patient discharged Performed By: #### L 100.0100, L500.2500 ####[facility] [address] [place], [address] MCH Normal 27.0-32.0 [facility] Comment on above: Result Comment: Canc elled via OM: Order cancelled - Patient discharged Performed By: #### L 100.0100, L500.2500 ####[facility] [address] [place], [address] MCHC Normal 32-36 [facility] Comment on above: Result Comment: Canc elled via OM: Order cancelled - Patient discharged Performed By: #### L 100.0100, L500.2500 ####[facility] [address] [place], [address] MCV Normal 81-99 [facility] Comment on above: Result Comment: Canc elled via OM: Order cancelled - Patient discharged Performed By: #### L 100.0100, L500.2500 ####[facility] [address] [place], [address] NEUT% Normal 47-70 [facility] Comment on above: Result Comment: Canc elled via OM: Order cancelled - Patient discharged Performed By: #### L 100.0100, L500.2500 ####[facility] [address] [place], [address] PLT Normal 150-450 [facility] Comment on above: Result Comment: Canc elled via OM: Order cancelled - Patient discharged Performed By: #### L 100.0100, L500.2500 ####[facility] [address] [place], [address] RBC Normal 4.2-5.4 [facility] Comment on above: Result Comment: Canc elled via OM: Order cancelled - Patient discharged Performed By: #### L 100.0100, L500.2500 ####[facility] [address] [place], [address] RDW CV Normal 11.6-14.6 [facility] Comment on above: Result Comment: Canc elled via OM: Order cancelled - Patient discharged Performed By: #### L 100.0100, L500.2500 ####[facility] [address] [place], [address] RDW SD Normal 35.1-43.9 [facility] Comment on above: Result Comment: Canc elled via OM: Order cancelled - Patient discharged Performed By: #### L 100.0100, L500.2500 ####[facility] [address] [place], [address] WBC Normal 4.4-11.0 [facility] Comment on above: Result Comment: Canc elled via OM: Order cancelled - Patient discharged Performed By: #### L 100.0100, L500.2500 ####[facility] [address] [place], [address] Basic Metabolic Profile (BMP )on 07-21-2025 BUN Normal 4-19 [facility] Comment on above: Result Comment: Canc elled via OM: Order cancelled - Patient discharged Performed By: #### L 500.2500, L100.0100 ####[facility] [address] [place], [address] BUN/CRE Normal 10-20 [facility] Comment on above: Result Comment: Canc elled via OM: Order cancelled - Patient discharged Performed By: #### L 500.2500, L100.0100 ####[facility] [address] [place], [address] Calcium Normal 7.6-11.0 [facility] Comment on above: Result Comment: Canc elled via OM: Order cancelled - Patient discharged Performed By: #### L 500.2500, L100.0100 ####[facility] [address] [place], [address] CL Normal 98-108 [facility] Comment on above: Result Comment: Canc elled via OM: Order cancelled - Patient discharged Performed By: #### L 500.2500, L100.0100 ####[facility] [address] [place], [address] CO2 Normal 21.0-32.0 [facility] Comment on above: Result Comment: Canc elled via OM: Order cancelled - Patient discharged Performed By: #### L 500.2500, L100.0100 ####[facility] [address] [place], [address] CREAT,SERUM Normal 0.70-1.20 [facility] Comment on above: Result Comment: Canc elled via OM: Order cancelled - Patient discharged Performed By: #### L 500.2500, L100.0100 ####[facility] [address] [place], [address] eGFR Normal >60 [facility] Comment on above: Result Comment: Canc elled via OM: Order cancelled - Patient discharged Performed By: #### L 500.2500, L100.0100 ####[facility] [address] [place], [address] GAP Normal 5-15 [facility] Comment on above: Result Comment: Canc elled via OM: Order cancelled - Patient discharged Performed By: #### L 500.2500, L100.0100 ####[facility] [address] [place], [address] GLU Normal 70-99 [facility] Comment on above: Result Comment: Canc elled via OM: Order cancelled - Patient discharged Performed By: #### L 500.2500, L100.0100 ####[facility] [address] [place], [address] Potassium Normal 3.3-5.1 [facility] Comment on above: Result Comment: Canc elled via OM: Order cancelled - Patient discharged Performed By: #### L 500.2500, L100.0100 ####[facility] [address] [place], [address] Basic Metabolic Profile (BMP) Normal 133-145 [facility] Comment on above: Result Comment: Canc elled via OM: Order cancelled - Patient discharged Performed By: #### L 500.2500, L100.0100 ####[facility] [address] [place], [address] CBC W/Diff, Automatedon 09-0 6-2024 Absolute Neut Normal 2.0-7.7 [facility] Comment on above: Result Comment: Canc elled via OM: Order cancelled - Patient discharged Performed By: #### L 500.2500, L100.0100 ####[facility] [address] [place], [address] HCT Normal 37-47 [facility] Comment on above: Result Comment: Canc elled via OM: Order cancelled - Patient discharged Performed By: #### L 500.2500, L100.0100 ####[facility] [address] [place], [address] HGB Normal 12.0-15.0 [facility] Comment on above: Result Comment: Canc elled via OM: Order cancelled - Patient discharged Performed By: #### L 500.2500, L100.0100 ####[facility] [address] [place], [address] MCH Normal 27.0-32.0 [facility] Comment on above: Result Comment: Canc elled via OM: Order cancelled - Patient discharged Performed By: #### L 500.2500, L100.0100 ####[facility] [address] [place], [address] MCHC Normal 32-36 [facility] Comment on above: Result Comment: Canc elled via OM: Order cancelled - Patient discharged Performed By: #### L 500.2500, L100.0100 ####[facility] [address] [place], [address] MCV Normal 81-99 [facility] Comment on above: Result Comment: Canc elled via OM: Order cancelled - Patient discharged Performed By: #### L 500.2500, L100.0100 ####[facility] [address] [place], [address] NEUT% Normal 47-70 [facility] Comment on above: Result Comment: Canc elled via OM: Order cancelled - Patient discharged Performed By: #### L 500.2500, L100.0100 ####[facility] [address] [place], [address] PLT Normal 150-450 [facility] Comment on above: Result Comment: Canc elled via OM: Order cancelled - Patient discharged Performed By: #### L 500.2500, L100.0100 ####[facility] [address] [place], [address] RBC Normal 4.2-5.4 [facility] Comment on above: Result Comment: Canc elled via OM: Order cancelled - Patient discharged Performed By: #### L 500.2500, L100.0100 ####[facility] [address] [place], [address] RDW CV Normal 11.6-14.6 [facility] Comment on above: Result Comment: Canc elled via OM: Order cancelled - Patient discharged Performed By: #### L 500.2500, L100.0100 ####[facility] [address] [place], [address] RDW SD Normal 35.1-43.9 [facility] Comment on above: Result Comment: Canc elled via OM: Order cancelled - Patient discharged Performed By: #### L 500.2500, L100.0100 ####[facility] [address] [place], [address] WBC Normal 4.4-11.0 [facility] Comment on above: Result Comment: Canc elled via OM: Order cancelled - Patient discharged Performed By: #### L 500.2500, L100.0100 ####[facility] [address] [place], [address] Basic Metabolic Profile (BMP )on 07-20-2025 BUN Normal 4-19 [facility] Comment on above: Result Comment: Canc elled via OM: Order cancelled - Patient discharged Performed By: #### L 100.0100, L500.2500 ####[facility] [address] [place], [address] BUN/CRE Normal 10-20 [facility] Comment on above: Result Comment: Canc elled via OM: Order cancelled - Patient discharged Performed By: #### L 100.0100, L500.2500 ####[facility] [address] [place], [address] Calcium Normal 7.6-11.0 [facility] Comment on above: Result Comment: Canc elled via OM: Order cancelled - Patient discharged Performed By: #### L 100.0100, L500.2500 ####[facility] [address] [place], [address] CL Normal 98-108 [facility] Comment on above: Result Comment: Canc elled via OM: Order cancelled - Patient discharged Performed By: #### L 100.0100, L500.2500 ####[facility] [address] [place], [address] CO2 Normal 21.0-32.0 [facility] Comment on above: Result Comment: Canc elled via OM: Order cancelled - Patient discharged Performed By: #### L 100.0100, L500.2500 ####[facility] [address] [place], [address] CREAT,SERUM Normal 0.70-1.20 [facility] Comment on above: Result Comment: Canc elled via OM: Order cancelled - Patient discharged Performed By: #### L 100.0100, L500.2500 ####[facility] [address] [place], [address] eGFR Normal >60 [facility] Comment on above: Result Comment: Canc elled via OM: Order cancelled - Patient discharged Performed By: #### L 100.0100, L500.2500 ####[facility] [address] [place], [address] GAP Normal 5-15 [facility] Comment on above: Result Comment: Canc elled via OM: Order cancelled - Patient discharged Performed By: #### L 100.0100, L500.2500 ####[facility] [address] [place], [address] GLU Normal 70-99 [facility] Comment on above: Result Comment: Canc elled via OM: Order cancelled - Patient discharged Performed By: #### L 100.0100, L500.2500 ####[facility] [address] [place], [address] Potassium Normal 3.3-5.1 [facility] Comment on above: Result Comment: Canc elled via OM: Order cancelled - Patient discharged Performed By: #### L 100.0100, L500.2500 ####[facility] [address] [place], [address] Basic Metabolic Profile (BMP) Normal 133-145 [facility] Comment on above: Result Comment: Canc elled via OM: Order cancelled - Patient discharged Performed By: #### L 100.0100, L500.2500 ####[facility] [address] [place], [address] CBC W/Diff, Automatedon 09-0 -2024 Absolute Neut Normal 2.0-7.7 [facility] Comment on above: Result Comment: Canc elled via OM: Order cancelled - Patient discharged Performed By: #### L 100.0100, L500.2500 ####[facility] [address] [place], [address] HCT Normal 37-47 [facility] Comment on above: Result Comment: Canc elled via OM: Order cancelled - Patient discharged Performed By: #### L 100.0100, L500.2500 ####[facility] [address] [place], [address] HGB Normal 12.0-15.0 [facility] Comment on above: Result Comment: Canc elled via OM: Order cancelled - Patient discharged Performed By: #### L 100.0100, L500.2500 ####[facility] [address] [place], [address] MCH Normal 27.0-32.0 [facility] Comment on above: Result Comment: Canc elled via OM: Order cancelled - Patient discharged Performed By: #### L 100.0100, L500.2500 ####[facility] [address] [place], [address] MCHC Normal 32-36 [facility] Comment on above: Result Comment: Canc elled via OM: Order cancelled - Patient discharged Performed By: #### L 100.0100, L500.2500 ####[facility] [address] [place], [address] MCV Normal 81-99 [facility] Comment on above: Result Comment: Canc elled via OM: Order cancelled - Patient discharged Performed By: #### L 100.0100, L500.2500 ####[facility] [address] [place], [address] NEUT% Normal 47-70 [facility] Comment on above: Result Comment: Canc elled via OM: Order cancelled - Patient discharged Performed By: #### L 100.0100, L500.2500 ####[facility] [address] [place], [address] PLT Normal 150-450 [facility] Comment on above: Result Comment: Canc elled via OM: Order cancelled - Patient discharged Performed By: #### L 100.0100, L500.2500 ####[facility] [address] [place], [address] RBC Normal 4.2-5.4 [facility] Comment on above: Result Comment: Canc elled via OM: Order cancelled - Patient discharged Performed By: #### L 100.0100, L500.2500 ####[facility] [address] [place], [address] RDW CV Normal 11.6-14.6 [facility] Comment on above: Result Comment: Canc elled via OM: Order cancelled - Patient discharged Performed By: #### L 100.0100, L500.2500 ####[facility] [address] [place], [address] RDW SD Normal 35.1-43.9 [facility] Comment on above: Result Comment: Canc elled via OM: Order cancelled - Patient discharged Performed By: #### L 100.0100, L500.2500 ####[facility] [address] [place], [address] WBC Normal 4.4-11.0 [facility] Comment on above: Result Comment: Canc elled via OM: Order cancelled - Patient discharged Performed By: #### L 100.0100, L500.2500 ####[facility] [address] [place], [address] Absolute lymphocyte countOrd ered By: Imani Persaud on 07-19-2025 Lymphocytes Auto (Unsp spec) [#/Vol] 0.81 10*3/uL Low 0.83-4.51 [facility] Anion gap in Serum or Plasma Ordered By: Imani Persaud on 07-19-2025 Anion gap [Moles/Vol] 10 mmol/L 5- [facility] Automated lymphocyte count a s percentage of total leukocytesOrdered By: Imani Persaud on 07-19-2025 Lymphocytes/100 WBC Auto (Unsp spec) 36.5 % - [facility] BUN/creatinine ratioOrdered By: Imani Persaud on 07-19-2025 Urea nitrogen/Creatinine [Mass ratio] 11.1 mg/mg - [facility] Basic Metabolic Profile (BMP )on 07-19-2025 BUN Normal - [facility] Comment on above: Result Comment: Canc elled via OM: Order cancelled - Patient discharged Performed By: #### L 500.2500, L100.0100 ####[facility] [address] [place], [address] BUN/CRE Normal - [facility] Comment on above: Result Comment: Canc elled via OM: Order cancelled - Patient discharged Performed By: #### L 500.2500, L100.0100 ####[facility] [address] [place], [address] Calcium Normal 7.6-11.0 [facility] Comment on above: Result Comment: Canc elled via OM: Order cancelled - Patient discharged Performed By: #### L 500.2500, L100.0100 ####[facility] [address] [place], [address] CL Normal 98-108 [facility] Comment on above: Result Comment: Canc elled via OM: Order cancelled - Patient discharged Performed By: #### L 500.2500, L100.0100 ####[facility] [address] [place], [address] CO2 Normal 21.0-32.0 [facility] Comment on above: Result Comment: Canc elled via OM: Order cancelled - Patient discharged Performed By: #### L 500.2500, L100.0100 ####[facility] [address] [place], [address] CREAT,SERUM Normal 0.70-1.20 [facility] Comment on above: Result Comment: Canc elled via OM: Order cancelled - Patient discharged Performed By: #### L 500.2500, L100.0100 ####[facility] [address] [place], [address] eGFR Normal >60 [facility] Comment on above: Result Comment: Canc elled via OM: Order cancelled - Patient discharged Performed By: #### L 500.2500, L100.0100 ####[facility] [address] [place], [address] GAP Normal 5-15 [facility] Comment on above: Result Comment: Canc elled via OM: Order cancelled - Patient discharged Performed By: #### L 500.2500, L100.0100 ####[facility] [address] [place], [address] GLU Normal 70-99 [facility] Comment on above: Result Comment: Canc elled via OM: Order cancelled - Patient discharged Performed By: #### L 500.2500, L100.0100 ####[facility] [address] [place], [address] Potassium Normal 3.3-5.1 [facility] Comment on above: Result Comment: Canc elled via OM: Order cancelled - Patient discharged Performed By: #### L 500.2500, L100.0100 ####[facility] [address] [place], [address] Basic Metabolic Profile (BMP) Normal 133-145 [facility] Comment on above: Result Comment: Canc elled via OM: Order cancelled - Patient discharged Performed By: #### L 500.2500, L100.0100 ####[facility] [address] [place], [address] Basophil percentageOrdered B y: Imani Persaud on 07-19-2025 Basophils/100 WBC (Bld) 2.3 % High 0-1 [facility] Bilirubin, totalOrdered By: Imani Persaud on 07-19-2025 Bilirubin [Mass/Vol] 0.58 mg/dL 0.00-1.30 [facility] CBC W/Diff, Automatedon 09-0 ATYPICAL LYMPH 2+ Normal [facility] Comment on above: Performed By: #### L 501.5200, L500.4050, L100.0100 ####[facility] [address] [place], [address] PLT EST MOD DEC Normal ADEQ [facility] Comment on above: Performed By: #### L 501.5200, L500.4050, L100.0100 ####[facility] [address] [place], [address] Absolute Neut Normal 2.0-7.7 [facility] Comment on above: Result Comment: Canc elled via OM: Order cancelled - Patient discharged Performed By: #### L 500.2500, L100.0100 ####[facility] [address] [place], [address] HCT Normal 37-47 [facility] Comment on above: Result Comment: Canc elled via OM: Order cancelled - Patient discharged Performed By: #### L 500.2500, L100.0100 ####[facility] [address] [place], [address] HGB Normal 12.0-15.0 [facility] Comment on above: Result Comment: Canc elled via OM: Order cancelled - Patient discharged Performed By: #### L 500.2500, L100.0100 ####[facility] [address] [place], [address] MCH Normal 27.0-32.0 [facility] Comment on above: Result Comment: Canc elled via OM: Order cancelled - Patient discharged Performed By: #### L 500.2500, L100.0100 ####[facility] [address] [place], [address] MCHC Normal 32-36 [facility] Comment on above: Result Comment: Canc elled via OM: Order cancelled - Patient discharged Performed By: #### L 500.2500, L100.0100 ####[facility] [address] [place], [address] MCV Normal 81-99 [facility] Comment on above: Result Comment: Canc elled via OM: Order cancelled - Patient discharged Performed By: #### L 500.2500, L100.0100 ####[facility] [address] [place], [address] NEUT% Normal 47-70 [facility] Comment on above: Result Comment: Canc elled via OM: Order cancelled - Patient discharged Performed By: #### L 500.2500, L100.0100 ####[facility] [address] [place], [address] PLT Normal 150-450 [facility] Comment on above: Result Comment: Canc elled via OM: Order cancelled - Patient discharged Performed By: #### L 500.2500, L100.0100 ####[facility] [address] [place], [address] RBC Normal 4.2-5.4 [facility] Comment on above: Result Comment: Canc elled via OM: Order cancelled - Patient discharged Performed By: #### L 500.2500, L100.0100 ####[facility] [address] [place], [address] RDW CV Normal 11.6-14.6 [facility] Comment on above: Result Comment: Canc elled via OM: Order cancelled - Patient discharged Performed By: #### L 500.2500, L100.0100 ####[facility] [address] [place], [address] RDW SD Normal 35.1-43.9 [facility] Comment on above: Result Comment: Canc elled via OM: Order cancelled - Patient discharged Performed By: #### L 500.2500, L100.0100 ####[facility] [address] [place], [address] WBC Normal 4.4-11.0 [facility] Comment on above: Result Comment: Canc elled via OM: Order cancelled - Patient discharged Performed By: #### L 500.2500, L100.0100 ####[facility] [address] [place], [address] Carbon dioxide, total [Moles /volume] in Central venous bloodOrdered By: Imani Persaud on 07-19-2025 CO2 [Moles/Vol] 21.4 mmol/L 21.0-32.0 [facility] Chloride assayOrdered By: Jonatan Persaud on 07-19-2025 Chloride [Moles/Vol] 108 mmol/L 98-108 [facility] Comprehensive Metabolic Prof ilon 07-19-2025 Albumin [Mass/Vol] 3.1 g/dL Low 3.5-5.0 [facility] Comment on above: Performed By: #### L 501.5200, L500.4050, L100.0100 ####[facility] [address] [place], [address] Albumin/Globulin [Mass ratio] 1.0 {ratio} Normal 0.9-2.4 [facility] Comment on above: Performed By: #### L 501.5200, L500.4050, L100.0100 ####[facility] [address] [place], [address] ALK PHOS 62 U/L Normal 35-104 [facility] Comment on above: Performed By: #### L 501.5200, L500.4050, L100.0100 ####[facility] [address] [place], [address] ALT [Catalytic activity/Vol] 26 U/L Normal <=34 [facility] Comment on above: Performed By: #### L 501.5200, L500.4050, L100.0100 ####[facility] [address] [place], [address] AST [Catalytic activity/Vol] 46 U/L High <=31 [facility] Comment on above: Performed By: #### L 501.5200, L500.4050, L100.0100 ####[facility] [address] [place], [address] Bilirubin [Mass/Vol] 0.58 mg/dL Normal 0.00-1.30 [facility] Comment on above: Performed By: #### L 501.5200, L500.4050, L100.0100 ####[facility] [address] [place], [address] BUN/CRE 11.1 RATIO Normal 10-20 [facility] Comment on above: Performed By: #### L 501.5200, L500.4050, L100.0100 ####[facility] [address] [place], [address] Calcium [Mass/Vol] 8.7 mg/dL Normal 7.6-11.0 [facility] Comment on above: Performed By: #### L 501.5200, L500.4050, L100.0100 ####[facility] [address] [place], [address] Chloride [Moles/Vol] 108 mmol/L Normal 98-108 [facility] Comment on above: Performed By: #### L 501.5200, L500.4050, L100.0100 ####[facility] [address] [place], [address] CO2 [Moles/Vol] 21.4 mmol/L Normal 21.0-32.0 [facility] Comment on above: Performed By: #### L 501.5200, L500.4050, L100.0100 ####[facility] [address] [place], [address] Creatinine [Mass/Vol] 0.74 mg/dL Normal 0.70-1.20 [facility] Comment on above: Performed By: #### L 501.5200, L500.4050, L100.0100 ####[facility] [address] [place], [address] ECRCL 104.07 ml/min Normal 50-250 [facility] Comment on above: Performed By: #### L 501.5200, L500.4050, L100.0100 ####[facility] [address] [place], [address] GAP 10 Normal 5-15 [facility] Comment on above: Performed By: #### L 501.5200, L500.4050, L100.0100 ####[facility] [address] [place], [address] GFR/1.73 sq M.predicted among non-blacks MDRD (S/P/Bld) [Vol rate/Area] 96 mL/min/{1.73_m2} Normal >60 [facility] Comment on above: Result Comment: mL/m in/1.73m2 CKD-EPI Creatinine Equation (2020) Performed By: #### L 501.5200, L500.4050, L100.0100 ####[facility] [address] [place], [address] Globulin (S) [Mass/Vol] 3.0 g/dL Normal 2.2-4.2 [facility] Comment on above: Performed By: #### L 501.5200, L500.4050, L100.0100 ####[facility] [address] [place], [address] Glucose [Mass/Vol] 107 mg/dL High 70-99 [facility] Comment on above: Performed By: #### L 501.5200, L500.4050, L100.0100 ####[facility] [address] [place], [address] Potassium [Moles/Vol] 4.0 mmol/L Normal 3.3-5.1 [facility] Comment on above: Performed By: #### L 501.5200, L500.4050, L100.0100 ####[facility] [address] [place], [address] Sodium [Moles/Vol] 139 mmol/L Normal 133-145 [facility] Comment on above: Performed By: #### L 501.5200, L500.4050, L100.0100 ####[facility] [address] [place], [address] T PROT 6.0 g/dL Normal 5.9-8.4 [facility] Comment on above: Performed By: #### L 501.5200, L500.4050, L100.0100 ####[facility] [address] [place], [address] Urea nitrogen [Mass/Vol] 8 mg/dL Normal 4-19 [facility] Comment on above: Performed By: #### L 501.5200, L500.4050, L100.0100 ####[facility] [address] [place], [address] Eosinophil percentageOrdered By: Imani Persaud on 07-19-2025 Eosinophils/100 WBC (Bld) 2.3 % 0-5 [facility] Erythrocyte distribution wid th ratioOrdered By: [facility] Persaud on 07-19-2025 Erythrocyte distribution width (RBC) [Ratio] 15.2 % High 11.6-14.6 [facility] Erythrocyte distribution wid th standard deviationOrdered By: Imani Persaud on 07-19-2025 Erythrocyte distribution width (RBC) [Ratio] 55.2 fl High 35.1-43.9 [facility] Glomerular filtration rate ( GFR) estimation/1.73 sq m using serum, plasma, or whole bOrdered By: Imani Persaud on 07-19-2025 GFR/1.73 sq M.predicted among non-blacks MDRD (S/P/Bld) [Vol rate/Area] 96 mL/min/{1.73_m2} >60 [facility] Hematocrit Auto (Bld) [Volum e fraction]Ordered By: Imani Persaud on 07-19-2025 Hematocrit (Bld) [Volume fraction] 32.1 % Low 37-47 [facility] Hemoglobin measurementOrdere d By: Imani Persaud on 07-19-2025 Hemoglobin (Bld) [Mass/Vol] 10.4 g/dL Low 12.0-15.0 [facility] Immature granulocytes/100 WB C Auto (Bld)Ordered By: Imani Persaud on 07-19-2025 Immature granulocytes/100 WBC (Bld) 0.500 % 0.0-0.9 [facility] MCV (mean corpuscular volume ) determinationOrdered By: Imani Persaud on 07-19-2025 MCV (RBC) [Entitic vol] 97.6 fL 81-99 [facility] Magnesiumon 07-19-2025 Magnesium [Mass/Vol] 2.1 mg/dL Normal 1.5-2.2 [facility] Comment on above: Performed By: #### L 501.5200, L500.4050, L100.0100 ####[facility] [address] [place], [address] Magnesium measurement (mass/ volume)Ordered By: Imnai Persaud on 07-19-2025 Magnesium (Unsp spec) [Mass/Vol] 2.1 mg/dL 1.5-2.2 [facility] Mean corpuscular hemoglobin (MCH) determinationOrdered By: Imani Persaud on 07-19-2025 MCH (RBC) [Entitic mass] 31.6 pg 27.0-32.0 [facility] Monocyte percentageOrdered B y: Imani Persaud on 07-19-2025 Monocytes/100 WBC (Bld) 7.2 % 0-10 [facility] Neutrophil percentageOrdered By: Imani Persaud on 07-19-2025 Neutrophils/100 WBC (Bld) 51.2 % 47-70 [facility] No Panel InformationOrdered By: Imani Persaud on 07-19-2025 46 U/L High <32 [facility] Oncology Visit Reporton Oncology Visit Report Normal [facility] Platelet countOrdered By: Jonatan Persaud on 07-19-2025 Platelets (Bld) [#/Vol] 85 10*3/uL Low 150-450 [facility] Platelet estimateOrdered By: Imani Persaud on 07-19-2025 Platelets LM Ql (Bld) MOD DEC ADEQ [facility] Potassium measurement (mass/ volume)Ordered By: Imani Persaud on 07-19-2025 Potassium (Unsp spec) [Mass/Vol] 4.0 mmol/L 3.3-5.1 [facility] RBC Auto (Bld) [#/Vol]Ordere d By: Imani Persaud on 07-19-2025 RBC (Bld) [#/Vol] 3.29 10*6/uL Low 4.2-5.4 [facility] Serum creatinine measurement (mass/volume)Ordered By: Imani Persaud on 07-19-2025 Creatinine [Mass/Vol] 0.74 mg/dL 0.70-1.20 [facility] Serum globulin measurementOr dered By: Imani Persaud on 07-19-2025 Globulin (S) [Mass/Vol] 3.0 g/dL 2.2-4.2 [facility] Serum glucose measurement (m ass/volume)Ordered By: Imani Persaud on 07-19-2025 Glucose [Mass/Vol] 107 mg/dL High 70-99 [facility] Serum or plasma alanine del rio otransferase (ALT) measurementOrdered By: Imani Persaud on 07-19-2025 ALT [Catalytic activity/Vol] 26 U/L <35 [facility] Serum or plasma albumin cass urement (mass/volume)Ordered By: Imani Persaud on 07-19-2025 Albumin [Mass/Vol] 3.1 g/dL Low 3.5-5.0 [facility] Serum or plasma albumin/glob ulin mass ratioOrdered By: Imani Persaud on 07-19-2025 Albumin/Globulin [Mass ratio] 1.0 {ratio} 0.9-2.4 [facility] Serum or plasma alkaline tre sphatase measurementOrdered By: Imani Persaud on 07-19-2025 ALP [Catalytic activity/Vol] 62 U/L 35-104 [facility] Serum or plasma calcium cass urement (mass/volume)Ordered By: Imani Persaud on 07-19-2025 Calcium [Mass/Vol] 8.7 mg/dL 7.6-11.0 [facility] Serum or plasma urea nitroge n measurement (mass/volume)Ordered By: Imani Cori on 07-19-2025 Urea nitrogen [Mass/Vol] 8 mg/dL 4-19 [facility] Sodium levelOrdered By: Jennifer roth Cori on 07-19-2025 Sodium [Moles/Vol] 139 mmol/L 133-145 [facility] Total proteinOrdered By: Lonnie mcgraw Cori on 07-19-2025 Protein [Mass/Vol] 6.0 g/dL 5.9-8.4 [facility] White blood cell (WBC) count Ordered By: Imani Cori on 07-19-2025 WBC (Bld) [#/Vol] 2.2 10*3/uL Low 4.4-11.0 [facility] Absolute lymphocyte countOrd ered By: Kelli Sung on 07-18-2025 Lymphocytes Auto (Unsp spec) [#/Vol] 0.64 10*3/uL Low 0.83-4.51 [facility] Anion gap in Serum or Plasma Ordered By: Kelli Sung on 07-18-2025 Anion gap [Moles/Vol] 10 mmol/L 5-15 [facility] Automated lymphocyte count a s percentage of total leukocytesOrdered By: Kelli Sung on 07-18-2025 Lymphocytes/100 WBC Auto (Unsp spec) 27.0 % 19-41 [facility] BUN/creatinine ratioOrdered By: Kelli Sung on 07-18-2025 Urea nitrogen/Creatinine [Mass ratio] 29.0 mg/mg High 10-20 [facility] Basic Metabolic Profile (BMP )on 07-18-2025 BUN/CRE 29.0 RATIO High 10- [facility] Comment on above: Performed By: #### L 100.0100, L500.2500 ####[facility] [address] [place], [place], [id number] Calcium [Mass/Vol] 8.0 mg/dL Normal 7.6-11.0 [facility] Comment on above: Performed By: #### L 100.0100, L500.2500 ####[facility] [address] [place], [address] Chloride [Moles/Vol] 108 mmol/L Normal 98-108 [facility] Comment on above: Performed By: #### L 100.0100, L500.2500 ####[facility] [address] [place], [address] CO2 [Moles/Vol] 19.2 mmol/L Low 21.0-32.0 [facility] Comment on above: Performed By: #### L 100.0100, L500.2500 ####[facility] [address] [place], [address] Creatinine [Mass/Vol] 0.37 mg/dL Low 0.70-1.20 [facility] Comment on above: Performed By: #### L 100.0100, L500.2500 ####[facility] [address] [place], [address] ECRCL 209.20 ml/min Normal 50-250 [facility] Comment on above: Performed By: #### L 100.0100, L500.2500 ####[facility] [address] [place], [address] GAP 10 Normal 5-15 [facility] Comment on above: Performed By: #### L 100.0100, L500.2500 ####[facility] [address] [place], [address] GFR/1.73 sq M.predicted among non-blacks MDRD (S/P/Bld) [Vol rate/Area] 120 mL/min/{1.73_m2} Normal >60 [facility] Comment on above: Result Comment: mL/m in/1.73m2 CKD-EPI Creatinine Equation (2020) Performed By: #### L 100.0100, L500.2500 ####[facility] [address] [place], [address] Glucose [Mass/Vol] 92 mg/dL Normal 70-99 [facility] Comment on above: Performed By: #### L 100.0100, L500.2500 ####[facility] [address] [place], [address] Potassium [Moles/Vol] 3.5 mmol/L Normal 3.3-5.1 [facility] Comment on above: Performed By: #### L 100.0100, L500.2500 ####[facility] [address] [place], [address] Sodium [Moles/Vol] 137 mmol/L Normal 133-145 [facility] Comment on above: Performed By: #### L 100.0100, L500.2500 ####[facility] [address] [place], [address] Urea nitrogen [Mass/Vol] 11 mg/dL Normal 4-19 [facility] Comment on above: Performed By: #### L 100.0100, L500.2500 ####[facility] [address] [place], [address] Basophil percentageOrdered B y: Kelli Sung on 07-18-2025 Basophils/100 WBC (Bld) 1.7 % High 0-1 [facility] CBC W/Diff, Automatedon Absolute Lymph 0.64 X10 3/uL Low 0.83-4.51 [facility] Comment on above: Performed By: #### L 100.0100, L500.2500 ####[facility] [address] [place], [address] Absolute Neut 1.5 X10 3/uL Low 2.0-7.7 [facility] Comment on above: Performed By: #### L 100.0100, L500.2500 ####[facility] [address] [place], [address] Basophils/100 WBC (Bld) 1.7 % High 0-1 [facility] Comment on above: Performed By: #### L 100.0100, L500.2500 ####[facility] [address] [place], [address] Eosinophils/100 WBC (Bld) 5.9 % High 0-5 [facility] Comment on above: Performed By: #### L 100.0100, L500.2500 ####[facility] [address] [place], [address] Erythrocyte distribution width (RBC) [Ratio] 15.5 % High 11.6-14.6 [facility] Comment on above: Performed By: #### L 100.0100, L500.2500 ####[facility] [address] [place], [address] Hematocrit (Bld) [Volume fraction] 28.1 % Low 37-47 [facility] Comment on above: Performed By: #### L 100.0100, L500.2500 ####[facility] [address] [place], [address] Hemoglobin (Bld) [Mass/Vol] 9.0 g/dL Low 12.0-15.0 [facility] Comment on above: Performed By: #### L 100.0100, L500.2500 ####[facility] [address] [place], [address] IG% 0.000 Normal 0.0-0.9 [facility] Comment on above: Result Comment: IG% - Immature Granulocytes (promyelocytes, myelocytes andmetamyelocytes) > 1% indicates that a LEFT SHIFT is Present. Performed By: #### L 100.0100, L500.2500 ####[facility] [address] [place], [address] Lymphocytes/100 WBC (Bld) 27.0 % Normal 19-41 [facility] Comment on above: Performed By: #### L 100.0100, L500.2500 ####[facility] [address] [place], [address] MCH (RBC) [Entitic mass] 31.3 pg Normal 27.0-32.0 [facility] Comment on above: Performed By: #### L 100.0100, L500.2500 ####[facility] [address] [place], [address] MCHC (RBC) [Mass/Vol] 32.0 g/dL Normal 32-36 [facility] Comment on above: Performed By: #### L 100.0100, L500.2500 ####[facility] [address] [place], [address] MCV (RBC) [Entitic vol] 97.6 fL Normal 81-99 [facility] Comment on above: Performed By: #### L 100.0100, L500.2500 ####[facility] [address] [place], [address] Monocytes/100 WBC (Bld) 3.8 % Normal 0-10 [facility] Comment on above: Performed By: #### L 100.0100, L500.2500 ####[facility] [address] [place], [address] Neutrophils/100 WBC (Bld) 61.6 % Normal 47-70 [facility] [facility] Comment on above: Performed By: #### L 100.0100, L500.2500 ####[facility] [address] [place], [address] Nucleated RBC (Bld) [#/Vol] 0 10*3/uL Normal 0-5 [facility] Comment on above: Performed By: #### L 100.0100, L500.2500 ####[facility] [address] [place], [address] Platelet mean volume (Bld) [Entitic vol] 11.0 fL Normal 6.2-12.0 [facility] Comment on above: Performed By: #### L 100.0100, L500.2500 ####[facility] [address] [place], [address] Platelets (Bld) [#/Vol] 79 10*3/uL Low 150-450 [facility] Comment on above: Performed By: #### L 100.0100, L500.2500 ####[facility] [address] [place], [address] RBC (Bld) [#/Vol] 2.88 10*6/uL Low 4.2-5.4 [facility] Comment on above: Performed By: #### L 100.0100, L500.2500 ####[facility] [address] [place], [address] RDW SD 55.8 fl High 35.1-43.9 [facility] Comment on above: Performed By: #### L 100.0100, L500.2500 ####[facility] [address] [place], [address] WBC (Bld) [#/Vol] 2.4 10*3/uL Low 4.4-11.0 [facility] Comment on above: Performed By: #### L 100.0100, L500.2500 ####[facility] [address] [place], [address] Carbon dioxide, total [Moles /volume] in Central venous bloodOrdered By: Kelli Sung on 07-18-2025 CO2 [Moles/Vol] 19.2 mmol/L Low 21.0-32.0 [facility] Chloride assayOrdered By: Alana Sung on 07-18-2025 Chloride [Moles/Vol] 108 mmol/L 98-108 [facility] Culture, Blood (WB)on 2024 CUB Blood cultures x2, f rom two different sites No growth in 5 days. Normal [facility] Comment on above: Performed By: #### M 200.1000 ####[facility] [address] [place], [address] Discharge Instructionon 090 Discharge Instruction Normal [facility] Eosinophil percentageOrdered By: Kelli Sung on 07-18-2025 Eosinophils/100 WBC (Bld) 5.9 % High 0-5 [facility] Erythrocyte distribution wid th ratioOrdered By: Kelli Sung on 07-18-2025 Erythrocyte distribution width (RBC) [Ratio] 15.5 % High 11.6-14.6 [facility] Erythrocyte distribution wid th standard deviationOrdered By: Kelli Sung on 07-18-2025 Erythrocyte distribution width (RBC) [Ratio] 55.8 fl High 35.1-43.9 [facility] Glomerular filtration rate ( GFR) estimation/1.73 sq m using serum, plasma, or whole bOrdered By: Kelli Sung on 07-18-2025 GFR/1.73 sq M.predicted among non-blacks MDRD (S/P/Bld) [Vol rate/Area] 120 mL/min/{1.73_m2} >60 [facility] Hematocrit Auto (Bld) [Volum e fraction]Ordered By: Kelli Sung on 07-18-2025 Hematocrit (Bld) [Volume fraction] 28.1 % Low 37-47 [facility] Hemoglobin measurementOrdere d By: Kelli Sung on 07-18-2025 Hemoglobin (Bld) [Mass/Vol] 9.0 g/dL Low 12.0-15.0 [facility] Immature granulocytes/100 WB C Auto (Bld)Ordered By: Kelli Sung on 07-18-2025 Immature granulocytes/100 WBC (Bld) 0.000 % 0.0-0.9 [facility] MCV (mean corpuscular volume ) determinationOrdered By: Kelli Sung on 07-18-2025 MCV (RBC) [Entitic vol] 97.6 fL 81-99 [facility] Mean corpuscular hemoglobin (MCH) determinationOrdered By: Kellidavid Sung on 07-18-2025 MCH (RBC) [Entitic mass] 31.3 pg 27.0-32.0 [facility] Monocyte percentageOrdered B y: Kelli Sung on 07-18-2025 Monocytes/100 WBC (Bld) 3.8 % 0-10 [facility] Neutrophil percentageOrdered By: Kelli Sung on 07-18-2025 Neutrophils/100 WBC (Bld) 61.6 % 47-70 [facility] Platelet countOrdered By: Na alana Sung on 07-18-2025 Platelets (Bld) [#/Vol] 79 10*3/uL Low 150-450 [facility] Potassium measurement (mass/ volume)Ordered By: Kelli Sung on 07-18-2025 Potassium (Unsp spec) [Mass/Vol] 3.5 mmol/L 3.3-5.1 [facility] RBC Auto (Bld) [#/Vol]Ordere d By: Kelli Sung on 07-18-2025 RBC (Bld) [#/Vol] 2.88 10*6/uL Low 4.2-5.4 [facility] Serum creatinine measurement (mass/volume)Ordered By: Kelli Sung on 07-18-2025 Creatinine [Mass/Vol] 0.37 mg/dL Low 0.70-1.20 [facility] Serum glucose measurement (m ass/volume)Ordered By: Kelli Sung on 07-18-2025 Glucose [Mass/Vol] 92 mg/dL 70-99 [facility] Serum or plasma calcium cass urement (mass/volume)Ordered By: Kelli Sung on 07-18-2025 Calcium [Mass/Vol] 8.0 mg/dL 7.6-11.0 [facility] Serum or plasma urea nitroge n measurement (mass/volume)Ordered By: Kelli Sung on 07-18-2025 Urea nitrogen [Mass/Vol] 11 mg/dL 4-19 [facility] Sodium levelOrdered By: Kelli Sung on 07-18-2025 Sodium [Moles/Vol] 137 mmol/L 133-145 [facility] Urine Cultureon 07-18-2025 [facility] Mixed Gram Pos Gram Neg Org [place] Count 11,000-25,000 MIX[facility] Mixed contaminants. Submit a new specimen if indicated. Normal [facility] Comment on above: Performed By: #### M 100.2200 ####[facility] [address] [place], [address] White blood cell (WBC) count Ordered By: Kelli Sung on 07-18-2025 WBC (Bld) [#/Vol] 2.4 10*3/uL Low 4.4-11.0 [facility] Basic Metabolic Profile (BMP )on 07-17-2025 BUN/CRE 31.5 RATIO High 10-20 [facility] Comment on above: Performed By: #### L 500.2500 ####[facility] [address] [place], [address] Calcium [Mass/Vol] 8.1 mg/dL Normal 7.6-11.0 [facility] Comment on above: Performed By: #### L 500.2500 ####[facility] [address] [place], [address] Performed By: #### L 501.9520, L500.2500, L501.5200, L100.0100 ####[facility] [address] [place], [address] Chloride [Moles/Vol] 105 mmol/L Normal 98-108 [facility] Comment on above: Performed By: #### L 500.2500 ####[facility] [address] [place], [address] Performed By: #### L 501.9520, L500.2500, L501.5200, L100.0100 ####[facility] [address] [place], [address] CO2 [Moles/Vol] 16.4 mmol/L Low 21.0-32.0 [facility] Comment on above: Performed By: #### L 500.2500 ####[facility] [address] [place], [address] Creatinine [Mass/Vol] 0.41 mg/dL Low 0.70-1.20 [facility] Comment on above: Performed By: #### L 500.2500 ####[facility] [address] [place], [address] ECRCL 188.79 ml/min Normal 50-250 [facility] Comment on above: Performed By: #### L 500.2500 ####[facility] [address] [place], [address] GAP 11 Normal 5-15 [facility] Comment on above: Performed By: #### L 500.2500 ####[facility] [address] [place], [address] Performed By: #### L 501.9520, L500.2500, L501.5200, L100.0100 ####[facility] [address] [place], [address] GFR/1.73 sq M.predicted among non-blacks MDRD (S/P/Bld) [Vol rate/Area] 117 mL/min/{1.73_m2} Normal >60 [facility] Comment on above: Result Comment: mL/m in/1.73m2 CKD-EPI Creatinine Equation (2020) Performed By: #### L 500.2500 ####[facility] [address] [place], [address] Glucose [Mass/Vol] 79 mg/dL Normal 70-99 [facility] Comment on above: Performed By: #### L 500.2500 ####[facility] [address] [place], [address] Potassium [Moles/Vol] 3.6 mmol/L Normal 3.3-5.1 [facility] Comment on above: Performed By: #### L 500.2500 ####[facility] [address] [place], [address] Sodium [Moles/Vol] 132 mmol/L Low 133-145 [facility] Comment on above: Performed By: #### L 500.2500 ####[facility] [address] [place], [address] Performed By: #### L 501.9520, L500.2500, L501.5200, L100.0100 ####[facility] [address] [place], [address] Urea nitrogen [Mass/Vol] 13 mg/dL Normal 4-19 [facility] Comment on above: Performed By: #### L 500.2500 ####[facility] [address] [place], [address] Performed By: #### L 501.9520, L500.2500, L501.5200, L100.0100 ####[facility] [address] [place], [address] BUN/CRE 27.1 RATIO High 10-20 [facility] Comment on above: Performed By: #### L 501.9520, L500.2500, L501.5200, L100.0100 ####[facility] [address] [place], [address] CO2 [Moles/Vol] 16.2 mmol/L Low 21.0-32.0 [facility] Comment on above: Performed By: #### L 501.9520, L500.2500, L501.5200, L100.0100 ####[facility] [address] [place], [address] Creatinine [Mass/Vol] 0.50 mg/dL Low 0.70-1.20 [facility] Comment on above: Performed By: #### L 501.9520, L500.2500, L501.5200, L100.0100 ####[facility] [address] [place], [address] ECRCL 154.81 ml/min Normal 50-250 [facility] Comment on above: Performed By: #### L 501.9520, L500.2500, L501.5200, L100.0100 ####[facility] [address] [place], [address] GFR/1.73 sq M.predicted among non-blacks MDRD (S/P/Bld) [Vol rate/Area] 112 mL/min/{1.73_m2} Normal >60 [facility] Comment on above: Result Comment: mL/m in/1.73m2 CKD-EPI Creatinine Equation (2020) Performed By: #### L 501.9520, L500.2500, L501.5200, L100.0100 ####[facility] [address] [place], [address] Glucose [Mass/Vol] 95 mg/dL Normal 70-99 [facility] Comment on above: Performed By: #### L 501.9520, L500.2500, L501.5200, L100.0100 ####[facility] [address] [place], [address] Potassium [Moles/Vol] 3.5 mmol/L Normal 3.3-5.1 [facility] Comment on above: Performed By: #### L 501.9520, L500.2500, L501.5200, L100.0100 ####[facility] [address] [place], [address] Blood basophils/100 leukocyt esOrdered By: Barbie Cross on 07-17-2025 Basophils/100 WBC (Bld) 1 % 0-1 [facility] Blood eosinophils/100 leukoc ytesOrdered By: Barbie Cross on 07-17-2025 Eosinophils/100 WBC (Bld) 4 % 0-5 [facility] Blood lymphocytes/100 leukoc ytesOrdered By: Barbie Cross on 07-17-2025 Lymphocytes/100 WBC (Bld) 9 % Low 19-41 [facility] Blood segmented neutrophils/ 100 leukocytesOrdered By: Barbie Cross on 07-17-2025 Segmented neutrophils/100 WBC (Bld) 86 % High 47-70 [facility] CBC W/Diff, Automatedon Anisocytosis Ql (Bld) 1+ Normal [facility] Comment on above: Performed By: #### L 501.9520, L500.2500, L501.5200, L100.0100 ####[facility] [address] [place], [address] OVALOCYTE 1+ Normal [facility] Comment on above: Performed By: #### L 501.9520, L500.2500, L501.5200, L100.0100 ####[facility] [address] [place], [address] PLT EST MOD DEC Normal ADEQ [facility] Comment on above: Performed By: #### L 501.9520, L500.2500, L501.5200, L100.0100 ####[facility] [address] [place], [address] TEAR DROP 1+ Normal [facility] Comment on above: Performed By: #### L 501.9520, L500.2500, L501.5200, L100.0100 ####[facility] [address] [place], [address] Absolute Lymph 0.41 X10 3/uL Low 0.83-4.51 [facility] Comment on above: Performed By: #### L 501.9520, L500.2500, L501.5200, L100.0100 ####[facility] [address] [place], [address] Absolute Neut 4.0 X10 3/uL Normal 2.0-7.7 [facility] Comment on above: Performed By: #### L 501.9520, L500.2500, L501.5200, L100.0100 ####[facility] [address] [place], [address] DOHLE BODIES 1+ Normal [facility] Comment on above: Performed By: #### L 501.9520, L500.2500, L501.5200, L100.0100 ####[facility] [address] [place], [address] TOXIC GRAN 1+ Normal [facility] Comment on above: Performed By: #### L 501.9520, L500.2500, L501.5200, L100.0100 ####[facility] [address] [place], [address] Dohle bodies detectionOrdere d By: Barbie Cross on 07-17-2025 Dohle body LM Ql (Bld) 1+ [facility] Echocardiogram study reportO rdered By: Naldo Valencia on 07-17-2025 Study report [facility] Work Phone: Electrocardiogram reportOrde red By: Sal Soni on 07-17-2025 EKG study [facility] Other Phone: Free T3on 07-17-2025 Free T3 [Mass/Vol] 1.9 pg/mL Low 2.18-3.98 [facility] Comment on above: Performed By: #### L 506.0400, L501.94182 ####[facility] [address] [place], [address] Free R0Bwebvrf By: Kelli rodriguez on 07-17-2025 Free T3 [Mass/Vol] 1.9 pg/mL Low 2.18-3.98 [facility] Magnesiumon 07-17-2025 Magnesium [Mass/Vol] 2.1 mg/dL Normal 1.5-2.2 [facility] Comment on above: Performed By: #### L 501.9520, L500.2500, L501.5200, L100.0100 ####[facility] [address] [place], [place], [address] Magnesium measurement (mass/ volume)Ordered By: Barbie Cross on 07-17-2025 Magnesium (Unsp spec) [Mass/Vol] 2.1 mg/dL 1.5-2.2 [facility] No Panel InformationOrdered By: Barbie Cross on 07-17-2025 1+ [facility] Ovalocyte detectionOrdered B y: Barbie Cross on 07-17-2025 Ovalocytes LM Ql (Bld) 1+ [facility] Platelet estimateOrdered By: Barbie Cross on 07-17-2025 Platelets LM Ql (Bld) MOD DEC ADEQ [facility] T4 Free Directon 07-17-2025 T4 FREE DIRECT 1.00 ng/dL Normal 0.76-1.46 [facility] Comment on above: Performed By: #### L 506.0400, L501.76168 ####[facility] [address] [place], [place], [address] T4 freeOrdered By: Kelli rodriguez on 07-17-2025 Free T4 [Mass/Vol] 1.00 ng/dL 0.76-1.46 [facility] TSH DL <= 0.005 mIU/L QnOrde red By: Barbie Cross on 07-17-2025 TSH Qn 5.230 uIU/mL High 0.300-4.200 [facility] Teardrop cell detectionOrder ed By: Barbie Cross on 07-17-2025 Dacrocytes LM Ql (Bld) 1+ [facility] Thyroid Stim Hormone (TSH)on 07-17-2025 TSH 5.230 uIU/mL High 0.300-4.200 [facility] Comment on above: Performed By: #### L 501.9520, L500.2500, L501.5200, L100.0100 ####[facility] [address] [place], [place], [id number] Total cell countOrdered By: Barbie Cross on 07-17-2025 Cells counted Molgen (Bld/Tiss) [#] 100 MANUAL DIFF [facility] Toxic leukocyte granulation detectionOrdered By: Barbie Cross on 07-17-2025 Toxic granules LM Ql (Bld) 1+ [facility] 12 Lead EKGon 07-16-2025 12 Lead EKG Normal [facility] Absolute lymphocyte countOrd ered By: Bj Waddell on 07-16-2025 Lymphocytes Auto (Unsp spec) [#/Vol] 0.08 10*3/uL Low 0.83-4.51 [facility] Activated partial thrombopla stin time (aPTT) in platelet poor plasma by coagulation aOrdered By: Bj Waddell on 07-16-2025 aPTT Coag (PPP) [Time] 38.2 s High 24.1-36.2 [facility] Anion gap in Serum or Plasma Ordered By: Bj Waddell on 07-16-2025 Anion gap [Moles/Vol] 9 mmol/L 5-15 [facility] BUN/creatinine ratioOrdered By: Bj Waddell on 07-16-2025 Urea nitrogen/Creatinine [Mass ratio] 20.1 mg/mg High 10-20 [facility] Basic Metabolic Profile (BMP )on 07-16-2025 BUN/CRE 21.9 RATIO High 10-20 [facility] Comment on above: Performed By: #### L 500.2500 ####[facility] [address] [place], [address] Calcium [Mass/Vol] 7.9 mg/dL Normal 7.6-11.0 [facility] Comment on above: Performed By: #### L 500.2500 ####[facility] [address] [place], [address] Chloride [Moles/Vol] 105 mmol/L Normal 98-108 [facility] Comment on above: Performed By: #### L 500.2500 ####[facility] [address] [place], [address] CO2 [Moles/Vol] 15.8 mmol/L Low 21.0-32.0 [facility] Comment on above: Performed By: #### L 500.2500 ####[facility] [address] [place], [address] Creatinine [Mass/Vol] 0.60 mg/dL Low 0.70-1.20 [facility] Comment on above: Performed By: #### L 500.2500 ####[facility] [address] [place], [address] ECRCL 129.01 ml/min Normal 50-250 [facility] Comment on above: Performed By: #### L 500.2500 ####[facility] [address] [place], [address] GAP 10 Normal 5-15 [facility] Comment on above: Performed By: #### L 500.2500 ####[facility] [address] [place], [address] GFR/1.73 sq M.predicted among non-blacks MDRD (S/P/Bld) [Vol rate/Area] 106 mL/min/{1.73_m2} Normal >60 [facility] Comment on above: Result Comment: mL/m in/1.73m2 CKD-EPI Creatinine Equation (2020) Performed By: #### L 500.2500 ####[facility] [address] [place], [address] Glucose [Mass/Vol] 105 mg/dL High 70-99 [facility] Comment on above: Performed By: #### L 500.2500 ####[facility] [address] [place], [address] Potassium [Moles/Vol] 3.4 mmol/L Normal 3.3-5.1 [facility] Comment on above: Performed By: #### L 500.2500 ####[facility] [address] [place], [address] Sodium [Moles/Vol] 131 mmol/L Low 133-145 [facility] Comment on above: Performed By: #### L 500.2500 ####[facility] [address] [place], [address] Urea nitrogen [Mass/Vol] 13 mg/dL Normal 4-19 [facility] Comment on above: Performed By: #### L 500.2500 ####[facility] [address] [place], [address] BUN/CRE 22.1 RATIO High 10-20 [facility] Comment on above: Performed By: #### L 500.2500, L501.7300 ####[facility] [address] [place], [address] Calcium [Mass/Vol] 7.8 mg/dL Normal 7.6-11.0 [facility] Comment on above: Performed By: #### L 500.2500, L501.7300 ####[facility] [address] [place], [address] Chloride [Moles/Vol] 103 mmol/L Normal 98-108 [facility] Comment on above: Performed By: #### L 500.2500, L501.7300 ####[facility] [address] [place], [address] CO2 [Moles/Vol] 15.6 mmol/L Low 21.0-32.0 [facility] Comment on above: Performed By: #### L 500.2500, L501.7300 ####[facility] [address] [place], [address] Creatinine [Mass/Vol] 0.61 mg/dL Low 0.70-1.20 [facility] Comment on above: Performed By: #### L 500.2500, L501.7300 ####[facility] [address] [place], [address] ECRCL 128.22 ml/min Normal 50-250 [facility] Comment on above: Performed By: #### L 500.2500, L501.7300 ####[facility] [address] [place], [address] GAP 12 Normal 5-15 [facility] Comment on above: Performed By: #### L 500.2500, L501.7300 ####[facility] [address] [place], [address] GFR/1.73 sq M.predicted among non-blacks MDRD (S/P/Bld) [Vol rate/Area] 106 mL/min/{1.73_m2} Normal >60 [facility] Comment on above: Result Comment: mL/m in/1.73m2 CKD-EPI Creatinine Equation (2020) Performed By: #### L 500.2500, L501.7300 ####[facility] [address] [place], [address] Glucose [Mass/Vol] 101 mg/dL High 70-99 [facility] Comment on above: Performed By: #### L 500.2500, L501.7300 ####[facility] [address] [place], [address] Potassium [Moles/Vol] 3.8 mmol/L Normal 3.3-5.1 [facility] Comment on above: Performed By: #### L 500.2500, L501.7300 ####[facility] [address] [place], [address] Sodium [Moles/Vol] 130 mmol/L Low 133-145 [facility] Comment on above: Performed By: #### L 500.2500, L501.7300 ####[facility] [address] [place], [address] Urea nitrogen [Mass/Vol] 14 mg/dL Normal 4-19 [facility] Comment on above: Performed By: #### L 500.2500, L501.7300 ####[facility] [address] [place], [place], [id number] Bilirubin Test strip Ql (U)O rdered By: Bj Waddell on 07-16-2025 Bilirubin Ql (U) 1 mg/dL High Negative [facility] Bilirubin, totalOrdered By: Bj Waddell on 07-16-2025 Bilirubin [Mass/Vol] 1.61 mg/dL High 0.00-1.30 [facility] Blood band neutrophil count as percentage of total leukocytesOrdered By: Rosalia Nadira on 07-16-2025 Band form neutrophils/100 WBC (Bld) 1 % 0-5 [facility] Blood basophils/100 leukocyt esOrdered By: Rosalia Nadira on 07-16-2025 Basophils/100 WBC (Bld) 1 % 0-1 [facility] Blood cultureOrdered By: Antwon Waddell on 07-16-2025 Bacteria identified Cx Nom (Bld) No growth in 5 days. [facility] Bacteria identified Cx Nom (Bld) No growth in 5 days. [facility] Blood lymphocytes/100 leukoc ytesOrdered By: Bj Nadira on 07-16-2025 Lymphocytes/100 WBC (Bld) 1 % Low 19-41 [facility] Blood segmented neutrophils/ 100 leukocytesOrdered By: [facility] on 07-16-2025 Segmented neutrophils/100 WBC (Bld) 97 % High 47-70 [facility] CPK Total, Creatine Kinaseon 07-16-2025 CPK TOTAL 59 U/L Normal 24-195 [facility] Comment on above: Performed By: #### L 501.3620 ####[facility] [address] [place], [place], [id number] Carbon dioxide, total [Moles /volume] in Central venous bloodOrdered By: Bj Waddell on 07-16-2025 CO2 [Moles/Vol] 18.2 mmol/L Low 21.0-32.0 [facility] Chest PA and Lateralon 07-16 Chest PA and Lateral Normal [facility] Chloride assayOrdered By: Harjit Waddell on 07-16-2025 Chloride [Moles/Vol] 101 mmol/L 98-108 [facility] Comprehensive Metabolic Prof ilon 07-16-2025 Albumin [Mass/Vol] 2.9 g/dL Low 3.5-5.0 [facility] Comment on above: Performed By: #### L 500.4050, L100.0100, L503.6005, L503.7505, L300.3900, L300.4310 ####[facility] [address] [place], [address] Albumin/Globulin [Mass ratio] 1.0 {ratio} Normal 0.9-2.4 [facility] Comment on above: Performed By: #### L 500.4050, L100.0100, L503.6005, L503.7505, L300.3900, L300.4310 ####[facility] [address] [place], [address] ALK PHOS 64 U/L Normal 35-104 [facility] Comment on above: Performed By: #### L 500.4050, L100.0100, L503.6005, L503.7505, L300.3900, L300.4310 ####[facility] [address] [place], [address] ALT [Catalytic activity/Vol] 15 U/L Normal <=34 [facility] Comment on above: Performed By: #### L 500.4050, L100.0100, L503.6005, L503.7505, L300.3900, L300.4310 ####[facility] [address] [place], [address] AST [Catalytic activity/Vol] 23 U/L Normal <=31 [facility] Comment on above: Performed By: #### L 500.4050, L100.0100, L503.6005, L503.7505, L300.3900, L300.4310 ####[facility] [address] [place], [address] Bilirubin [Mass/Vol] 1.61 mg/dL High 0.00-1.30 [facility] Comment on above: Performed By: #### L 500.4050, L100.0100, L503.6005, L503.7505, L300.3900, L300.4310 ####[facility] [address] [place], [address] BUN/CRE 20.1 RATIO High 10-20 [facility] Comment on above: Performed By: #### L 500.4050, L100.0100, L503.6005, L503.7505, L300.3900, L300.4310 ####[facility] [address] [place], [address] Calcium [Mass/Vol] 8.1 mg/dL Normal 7.6-11.0 [facility] Comment on above: Performed By: #### L 500.4050, L100.0100, L503.6005, L503.7505, L300.3900, L300.4310 ####[facility] [address] [place], [address] Chloride [Moles/Vol] 101 mmol/L Normal 98-108 [facility] Comment on above: Performed By: #### L 500.4050, L100.0100, L503.6005, L503.7505, L300.3900, L300.4310 ####[facility] [address] [place], [address] CO2 [Moles/Vol] 18.2 mmol/L Low 21.0-32.0 [facility] Comment on above: Performed By: #### L 500.4050, L100.0100, L503.6005, L503.7505, L300.3900, L300.4310 ####[facility] [address] [place], [address] Creatinine [Mass/Vol] 0.63 mg/dL Low 0.70-1.20 [facility] Comment on above: Performed By: #### L 500.4050, L100.0100, L503.6005, L503.7505, L300.3900, L300.4310 ####[facility] [address] [place], [address] ECRCL 124.15 ml/min Normal 50-250 [facility] Comment on above: Performed By: #### L 500.4050, L100.0100, L503.6005, L503.7505, L300.3900, L300.4310 ####[facility] [address] [place], [address] GAP 9 Normal 5-15 [facility] Comment on above: Performed By: #### L 500.4050, L100.0100, L503.6005, L503.7505, L300.3900, L300.4310 ####[facility] [address] [place], [address] GFR/1.73 sq M.predicted among non-blacks MDRD (S/P/Bld) [Vol rate/Area] 105 mL/min/{1.73_m2} Normal >60 [facility] Comment on above: Result Comment: mL/m in/1.73m2 CKD-EPI Creatinine Equation (2020) Performed By: #### L 500.4050, L100.0100, L503.6005, L503.7505, L300.3900, L300.4310 ####[facility] [address] [place], [address] Globulin (S) [Mass/Vol] 2.8 g/dL Normal 2.2-4.2 [facility] Comment on above: Performed By: #### L 500.4050, L100.0100, L503.6005, L503.7505, L300.3900, L300.4310 ####[facility] [address] [place], [address] Glucose [Mass/Vol] 105 mg/dL High 70-99 [facility] Comment on above: Performed By: #### L 500.4050, L100.0100, L503.6005, L503.7505, L300.3900, L300.4310 ####[facility] [address] [place], [address] Potassium [Moles/Vol] 4.1 mmol/L Normal 3.3-5.1 [facility] Comment on above: Performed By: #### L 500.4050, L100.0100, L503.6005, L503.7505, L300.3900, L300.4310 ####[facility] [address] [place], [address] Sodium [Moles/Vol] 128 mmol/L Low 133-145 [facility] Comment on above: Performed By: #### L 500.4050, L100.0100, L503.6005, L503.7505, L300.3900, L300.4310 ####[facility] [address] [place], [address] T PROT 5.7 g/dL Low 5.9-8.4 [facility] Comment on above: Performed By: #### L 500.4050, L100.0100, L503.6005, L503.7505, L300.3900, L300.4310 ####[facility] [address] [place], [address] Urea nitrogen [Mass/Vol] 13 mg/dL Normal 4-19 [facility] Comment on above: Performed By: #### L 500.4050, L100.0100, L503.6005, L503.7505, L300.3900, L300.4310 ####[facility] [address] [place], [address] Creatinine, Urine (random)on 07-16-2025 UR CREAT 173.00 mg/dL Normal 28.00-217.0 0 [facility] Comment on above: Performed By: #### L 502.0715, L500.9400, L501.7400, L501.1200 ####[facility] [address] [place], [place], [address] Echo Completeon 07-16-2025 Echo Complete Normal [facility] Emergency Department Summary on 07-16-2025 Emergency Department Summary Normal [facility] Erythrocyte distribution wid th ratioOrdered By: Bj Waddell on 07-16-2025 Erythrocyte distribution width (RBC) [Ratio] 16.1 % High 11.6-14.6 [facility] Erythrocyte distribution wid th standard deviationOrdered By: Bj Lazcano on 07-16-2025 Erythrocyte distribution width (RBC) [Ratio] 58.3 fl High 35.1-43.9 [facility] Erythrocyte morphology asses smentOrdered By: Bj Waddell on 07-16-2025 RBC morphology finding Nom (Bld) NORM C+C NORMAL NORM C&C [facility] Glomerular filtration rate ( GFR) estimation/1.73 sq m using serum, plasma, or whole bOrdered By: Bj Waddell on 07-16-2025 GFR/1.73 sq M.predicted among non-blacks MDRD (S/P/Bld) [Vol rate/Area] 105 mL/min/{1.73_m2} >60 [facility] H AND P Exam - Hospitaliston 07-16-2025 H&P Exam - Hospitalist Normal [facility] Hematocrit Auto (Bld) [Volum e fraction]Ordered By: Bj Waddell on 07-16-2025 Hematocrit (Bld) [Volume fraction] 32.0 % Low 37-47 [facility] Hemoglobin measurementOrdere d By: Bj KlMireya on 07-16-2025 Hemoglobin (Bld) [Mass/Vol] 10.6 g/dL Low 12.0-15.0 [facility] Influenza virus A and B and SARS-CoV-2 (COVID-19) and Respiratory syncytial virus RNAOrdered By: Bj Waddell on 07-16-2025 SARS-CoV-2 (COVID-19) RNA NIKITA+probe Ql (Unsp spec) [facility] Ketones Test strip Ql (U)Ord ered By: Bj Mireya on 07-16-2025 Ketones Ql (U) 15 mg/dl High Negative [facility] L501.4021on 07-16-2025 Trop T High Sen 21 ng/L High <=14 [facility] Comment on above: Performed By: #### L 501.4021 ####[facility] [address] [facility] [place], [address] Trop T High Sen 21 ng/L High <=14 [facility] Comment on above: Performed By: #### L 501.5200, L501.4021 ####[facility] [address] [place], [address] Lactic Acidon 07-16-2025 Lactate [Moles/Vol] 1.5 mmol/L Normal 0.0-2.0 [facility] Comment on above: Order Comment: Y Performed By: #### L 500.4050, L100.0100, L503.6005, L503.7505, L300.3900, L300.4310 ####[facility] [address] [place], [address] M100.678on 07-16-2025 M100.678 Pending SARS-CoV-2 (COVID 19) Negative INFLUENZA A Negative INFLUENZA B Negative RSV PCR Negative Normal [facility] Comment on above: Performed By: #### L 400.0001, M100.678 ####[facility] [address] [place], [place], [address] MCV (mean corpuscular volume ) determinationOrdered By: Bj Waddell on 07-16-2025 MCV (RBC) [Entitic vol] 97.6 fL 81-99 [facility] Magnesiumon 07-16-2025 Magnesium [Mass/Vol] 1.8 mg/dL Normal 1.5-2.2 [facility] Comment on above: Performed By: #### L 501.5200, L501.4021 ####[facility] [address] [place], [place], [id number] Magnesium measurement (mass/ volume)Ordered By: Bj Waddell on 07-16-2025 Magnesium (Unsp spec) [Mass/Vol] 1.8 mg/dL 1.5-2.2 [facility] Mean corpuscular hemoglobin (MCH) determinationOrdered By: Bj Waddell on 07-16-2025 MCH (RBC) [Entitic mass] 32.3 pg High 27.0-32.0 [facility] Mucus LM Ql (Urine sed)Order ed By: Bj Waddell on 07-16-2025 Mucus Ql (Urine sed) 0 SEEN /hpf [facility] Natriuretic peptide.B prohor deanna N-Terminal [Mass/volume] in Serum or PlasmaOrdered By: Bj Waddell on 07-16-2025 Natriuretic peptide.B prohormone N-Terminal [Mass/Vol] 4642 pg/mL High <900 [facility] Nitrite Test strip Ql (U)Ord ered By: Bj Waddell on 07-16-2025 Nitrite Ql (U) Negative Negative [facility] No Panel InformationOrdered By: Bj Waddell on 07-16-2025 23 U/L <32 [facility] Osmolality urOrdered By: Isabel Cross on 07-16-2025 Osmolality (U) [Osmolality] 624 mOsm/KG >50 [facility] Osmolality, Serumon 07-16-20 25 OSMOLALITY,SER 275 mOsm/KG Normal 275-295 [facility] Comment on above: Performed By: #### L 500.2500, L501.7300 ####[facility] [address] [place], [address] Osmolality, Urineon 07-16-20 25 OSMOLALITY,UR 624 mOsm/KG Normal [facility] Comment on above: Result Comment: Norm al Urine Reference Ranges Random: 50 - 1200 mOsm/kg H20 depending on fluid intake Random: >850 mOsm/kg after 12 hour fluid restriction 24 hour: 300 - 900 mOsm/kg H2O Performed By: #### L 502.0715, L500.9400, L501.7400, L501.1200 ####[facility] [address] [place], [address] Partial Thromboplast Timeon 07-16-2025 aPTT Coag (Bld) [Time] 38.2 s High 24.1-36.2 [facility] Comment on above: Performed By: #### L 500.4050, L100.0100, L503.6005, L503.7505, L300.3900, L300.4310 ####[facility] [address] [facility] [place], [address] Platelet countOrdered By: Harjit Waddell on 07-16-2025 Platelets (Bld) [#/Vol] 121 10*3/uL Low 150-450 [facility] Platelet estimateOrdered By: Bj Mireya on 07-16-2025 Platelets LM Ql (Bld) MOD ADEQ [facility] Potassium measurement (mass/ volume)Ordered By: Bj Waddell on 07-16-2025 Potassium (Unsp spec) [Mass/Vol] 4.1 mmol/L 3.3-5.1 [facility] Pro- Brain NATRIURETIC PEPTI Abena 07-16-2025 Natriuretic peptide B (Bld) [Mass/Vol] 4642 pg/mL High <=900 [facility] Comment on above: Result Comment: Hear t Failure Unlikely: < 300 pg/mLHeart Failure Likely< 50 Years: > 450 pg/mL50-75 Years: > 900 pg/mL>75 Years: > 1800 pg/mL Performed By: #### L 500.4050, L100.0100, L503.6005, L503.7505, L300.3900, L300.4310 ####[facility] [address] [place], [address] Protein Test strip Ql (U)Ord ered By: Bj Waddell on 07-16-2025 Protein Ql (U) 100 mg/dl High Negative [facility] Prothrombin Time w/INRon INR Coag (PPP) [Relative time] 1.4 {INR} Normal [facility] Comment on above: Performed By: #### L 500.4050, L100.0100, L503.6005, L503.7505, L300.3900, L300.4310 ####[facility] [address] [place], [address] PT Coag (PPP) [Time] 17.1 s High 11.7-14.9 [facility] Comment on above: Performed By: #### L 500.4050, L100.0100, L503.6005, L503.7505, L300.3900, L300.4310 ####[facility] [address] [place], [address] Prothrombin timeOrdered By: Bj Waddell on 07-16-2025 PT Coag (PPP) [Time] 17.1 s High 11.7-14.9 [facility] RBC Auto (Bld) [#/Vol]Ordere d By: Bj Waddell on 07-16-2025 RBC (Bld) [#/Vol] 3.28 10*6/uL Low 4.2-5.4 [facility] RESPIRATORY PANEL MOLECULARo n 07-16-2025 RP PANEL Normal [facility] Comment on above: Performed By: #### M [id number] ####[facility] [address] [place], [address] Random urine creatinine cass urement (mass/volume)Ordered By: Barbie Cross on 07-16-2025 Creatinine Unsp time (U) [Mass/Vol] 173.00 mg/dL 28.00-217.0 0 [facility] Respiratory pathogens detect ion panel by molecular detection methodOrdered By: Barbie Cross on 07-16-2025 Respiratory pathogens DNA and RNA panel NIKITA+probe (Resp) [facility] Review by pathologistOrdered By: Bj Waddell on 07-16-2025 Pathologist review Bassam (Unsp spec) [Interp] May [facility] Pathologist review Bassam (Unsp spec) [Interp] Reviewed [facility] Serum creatinine measurement (mass/volume)Ordered By: Bj Waddell on 07-16-2025 Creatinine [Mass/Vol] 0.63 mg/dL Low 0.70-1.20 [facility] Serum globulin measurementOr dered By: Bj Waddell on 07-16-2025 Globulin (S) [Mass/Vol] 2.8 g/dL 2.2-4.2 [facility] Serum glucose measurement (m ass/volume)Ordered By: Bj Waddell on 07-16-2025 Glucose [Mass/Vol] 105 mg/dL High 70-99 [facility] Serum or plasma alanine del rio otransferase (ALT) measurementOrdered By: Bj Waddell on 07-16-2025 ALT [Catalytic activity/Vol] 15 U/L <35 [facility] Serum or plasma albumin cass urement (mass/volume)Ordered By: Bj Lazcano on 07-16-2025 Albumin [Mass/Vol] 2.9 g/dL Low 3.5-5.0 [facility] Serum or plasma albumin/glob ulin mass ratioOrdered By: Bj Waddell on 07-16-2025 Albumin/Globulin [Mass ratio] 1.0 {ratio} 0.9-2.4 [facility] Serum or plasma alkaline tre sphatase measurementOrdered By: Bj Waddell on 07-16-2025 ALP [Catalytic activity/Vol] 64 U/L 35-104 [facility] Serum or plasma calcium cass urement (mass/volume)Ordered By: Bj Lazcano on 07-16-2025 Calcium [Mass/Vol] 8.1 mg/dL 7.6-11.0 [facility] Serum or plasma creatine kin ase activityOrdered By: Bj Nadira on 07-16-2025 CK [Catalytic activity/Vol] 59 U/L 24-195 [facility] Serum or plasma urea nitroge n measurement (mass/volume)Ordered By: Bj Waddell on 07-16-2025 Urea nitrogen [Mass/Vol] 13 mg/dL 4-19 [facility] Sodium levelOrdered By: Mac Waddell on 07-16-2025 Sodium [Moles/Vol] 128 mmol/L Low 133-145 [facility] Squamous epithelial cells de tection in urine sediment by light microscopyOrdered By: Bj Waddell on 07-16-2025 Epithelial cells.squamous LM Ql (Urine sed) 0-5 SEEN /hpf 5-10 [facility] Total cell countOrdered By: Bj Waddell on 07-16-2025 Cells counted Molgen (Bld/Tiss) [#] 100 MANUAL DIFF [facility] Total proteinOrdered By: Antwon Waddell on 07-16-2025 Protein [Mass/Vol] 5.7 g/dL Low 5.9-8.4 [facility] Troponin T HS 2 HRon 025 Trop T High Sen 20 ng/L High <=14 [facility] Comment on above: Performed By: #### L 499.0042 ####[facility] [address] [place], [address] Troponin T.cardiac [Mass/vol ume] in Serum or Plasma by High sensitivity methodOrdered By: Barbie Cross on 07-16-2025 Troponin T.cardiac High sensitivity method [Mass/Vol] 21 ng/L High <14 [facility] Troponin T.cardiac [Mass/vol ume] in Serum or Plasma by High sensitivity methodOrdered By: Bj Waddell on 07-16-2025 Troponin T.cardiac High sensitivity method [Mass/Vol] 20 ng/L High <14 [facility] Troponin T.cardiac High sensitivity method [Mass/Vol] 21 ng/L High <14 [facility] Urea Nitrogen, Urineon 07-16 URINE UREA 968 mg/dL Normal NO RANGE EST. [facility] Comment on above: Performed By: #### L 502.0715, L500.9400, L501.7400, L501.1200 ####[facility] [address] [place], [address] Urinalysis, Completeon 07-16 BACTERIA 2+ /hpf Normal None Seen [facility] Comment on above: Order Comment: CLEAN CATCH Performed By: #### L 400.0001, M100.678 ####[facility] [address] [place], [address] EPI,SQUAMOUS 0-5 SEEN Normal 5-10 [facility] Comment on above: Order Comment: CLEAN CATCH Performed By: #### L 400.0001, M100.678 ####[facility] [address] [place], [address] RBC 25-50 SEEN Normal 0-5 [facility] Comment on above: Order Comment: CLEAN CATCH Performed By: #### L 400.0001, M100.678 ####[facility] [address] [place], [address] WBC 10-25 SEEN Normal 0-5 [facility] Comment on above: Order Comment: CLEAN CATCH Performed By: #### L 400.0001, M100.678 ####[facility] [address] [place], [address] Mucus Ql (Urine sed) 0 SEEN Normal [facility] Comment on above: Order Comment: CLEAN CATCH Performed By: #### L 400.0001, M100.678 ####[facility] [address] [place], [address] Urine Electrolytes- Randomon 07-16-2025 Chloride,URINE 20 mmol/L Normal Not Establ. [facility] Comment on above: Performed By: #### L 502.0715, L500.9400, L501.7400, L501.1200 ####[facility] [address] [place], [address] UR K 83.2 mmol/L Normal Not Establ. [facility] Comment on above: Performed By: #### L 502.0715, L500.9400, L501.7400, L501.1200 ####[facility] [address] [place], [address] UR NA < 20 Normal Not Establ. [facility] Comment on above: Performed By: #### L 502.0715, L500.9400, L501.7400, L501.1200 ####[facility] [address] [place], [address] Urine clarityOrdered By: Antwon Waddell on 07-16-2025 Clarity (U) Cloudy Clear [facility] Urine color determinationOrd ered By: Bj Waddell on 07-16-2025 Color (U) Yellow Yellow [facility] Urine cultureOrdered By: Antwon Waddell on 07-16-2025 Bacteria identified Cx Nom (U) Mixed Gram Pos & Gram Neg Org Abnormal [facility] Urine glucose detectionOrder ed By: Bj Waddell on 07-16-2025 Glucose Ql (U) Normal mg/dl Normal [facility] Urine leukocyte esterase det ection by dipstickOrdered By: Bj Waddell on 07-16-2025 Leukocyte esterase Test strip Ql (U) 500 /ul High Negative [facility] Urine pHOrdered By: Bj Gomes on 07-16-2025 pH (U) 6.0 [pH] 5.0 - 8.0 [facility] Urine potassium measurement (moles/volume)Ordered By: Barbie Cross on 07-16-2025 Potassium (U) [Moles/Vol] 83.2 mmol/L Not Establ. [facility] Urine sediment bacteria coun t by microscopy (number/high power field)Ordered By: Bj Waddell on 07-16-2025 Bacteria LM.HPF (Urine sed) [#/Area] 2 /[HPF] None Seen [facility] Urine sodium measurement (mo les/volume)Ordered By: Barbie Cross on 07-16-2025 Sodium (U) [Moles/Vol] mmol/L Not Establ. [facility] Urine specific gravity measu rementOrdered By: Bj Waddell on 07-16-2025 Specific gravity (U) [Rel density] 1.015 1.002-1.030 [facility] Urine urobilinogen measureme ntOrdered By: Bj Waddell on 07-16-2025 Urobilinogen Ql (U) 4 mg/dl High Normal [facility] White blood cell (WBC) count Ordered By: Bj Waddell on 07-16-2025 WBC (Bld) [#/Vol] 8.8 10*3/uL 4.4-11.0 [facility] White blood cell countOrdere d By: Bj Waddell on 07-16-2025 White blood cell count 10-25 SEEN /hpf 0-5 [facility] Absolute lymphocyte countOrd ered By: Imani Persaud on 07-12-2025 Lymphocytes Auto (Unsp spec) [#/Vol] 0.96 10*3/uL 0.83-4.51 [facility] Absolute neutrophil countOrd ered By: Imani Persaud on 07-12-2025 Neutrophils (Bld) [#/Vol] 2.4 10*3/uL 2.0-7.7 [facility] Anion gap in Serum or Plasma Ordered By: Imani Persaud on 07-12-2025 Anion gap [Moles/Vol] 10 mmol/L 5-15 [facility] Automated lymphocyte count a s percentage of total leukocytesOrdered By: Imani Cori on 07-12-2025 Lymphocytes/100 WBC Auto (Unsp spec) 23.2 % 19-41 [facility] BUN/creatinine ratioOrdered By: Imani Cori on 07-12-2025 Urea nitrogen/Creatinine [Mass ratio] 27.5 mg/mg High 10-20 [facility] Basophil percentageOrdered B y: Imani Cori on 07-12-2025 Basophils/100 WBC (Bld) 2.4 % High 0-1 [facility] Bilirubin, totalOrdered By: Jenniferira Persaud on 07-12-2025 Bilirubin [Mass/Vol] 0.34 mg/dL 0.00-1.30 [facility] CBC W/Diff, Automatedon 06-16 Anisocytosis Ql (Bld) 1+ Normal [facility] Comment on above: Performed By: #### L 500.4050, L100.0100, L501.5200 ####[facility] [address] [place], [place], [id number] PLT EST ADEQUATE Normal ADEQ [facility] Comment on above: Performed By: #### L 500.4050, L100.0100, L501.5200 ####[facility] [address] [place], [address] Carbon dioxide, total [Moles /volume] in Central venous bloodOrdered By: Imani Persaud on 07-12-2025 CO2 [Moles/Vol] 19.6 mmol/L Low 21.0-32.0 [facility] Chloride assayOrdered By: Jonatan Persaud on 07-12-2025 Chloride [Moles/Vol] 106 mmol/L 98-108 [facility] Comprehensive Metabolic Prof ilon 07-12-2025 Albumin [Mass/Vol] 3.3 g/dL Low 3.5-5.0 [facility] Comment on above: Performed By: #### L 500.4050, L100.0100, L501.5200 ####[facility] [address] [place], [address] Albumin/Globulin [Mass ratio] 1.2 {ratio} Normal 0.9-2.4 [facility] Comment on above: Performed By: #### L 500.4050, L100.0100, L501.5200 ####[facility] [address] [place], [address] ALK PHOS 83 U/L Normal 35-104 [facility] Comment on above: Performed By: #### L 500.4050, L100.0100, L501.5200 ####[facility] [address] [place], [address] ALT [Catalytic activity/Vol] 15 U/L Normal <=34 [facility] Comment on above: Performed By: #### L 500.4050, L100.0100, L501.5200 ####[facility] [address] [place], [address] AST [Catalytic activity/Vol] 24 U/L Normal <=31 [facility] Comment on above: Performed By: #### L 500.4050, L100.0100, L501.5200 ####[facility] [address] [place], [address] Bilirubin [Mass/Vol] 0.34 mg/dL Normal 0.00-1.30 [facility] Comment on above: Performed By: #### L 500.4050, L100.0100, L501.5200 ####[facility] [address] [place], [address] BUN/CRE 27.5 RATIO High 10-20 [facility] Comment on above: Performed By: #### L 500.4050, L100.0100, L501.5200 ####[facility] [address] [place], [address] Calcium [Mass/Vol] 8.6 mg/dL Normal 7.6-11.0 [facility] Comment on above: Performed By: #### L 500.4050, L100.0100, L501.5200 ####[facility] [address] [place], [address] Chloride [Moles/Vol] 106 mmol/L Normal 98-108 [facility] Comment on above: Performed By: #### L 500.4050, L100.0100, L501.5200 ####[facility] [address] [place], [address] CO2 [Moles/Vol] 19.6 mmol/L Low 21.0-32.0 [facility] Comment on above: Performed By: #### L 500.4050, L100.0100, L501.5200 ####[facility] [address] [place], [address] Creatinine [Mass/Vol] 0.54 mg/dL Low 0.70-1.20 [facility] Comment on above: Performed By: #### L 500.4050, L100.0100, L501.5200 ####[facility] [address] [place], [address] ECRCL 142.62 ml/min Normal 50-250 [facility] Comment on above: Performed By: #### L 500.4050, L100.0100, L501.5200 ####[facility] [address] [place], [address] GAP 10 Normal 5-15 [facility] Comment on above: Performed By: #### L 500.4050, L100.0100, L501.5200 ####[facility] [address] [place], [address] GFR/1.73 sq M.predicted among non-blacks MDRD (S/P/Bld) [Vol rate/Area] 109 mL/min/{1.73_m2} Normal >60 [facility] Comment on above: Result Comment: mL/m in/1.73m2 CKD-EPI Creatinine Equation (2020) Performed By: #### L 500.4050, L100.0100, L501.5200 ####[facility] [address] [place], [address] Globulin (S) [Mass/Vol] 2.8 g/dL Normal 2.2-4.2 [facility] Comment on above: Performed By: #### L 500.4050, L100.0100, L501.5200 ####[facility] [address] [place], [address] Glucose [Mass/Vol] 114 mg/dL High 70-99 [facility] Comment on above: Performed By: #### L 500.4050, L100.0100, L501.5200 ####[facility] [address] [place], [address] Potassium [Moles/Vol] 4.2 mmol/L Normal 3.3-5.1 [facility] Comment on above: Performed By: #### L 500.4050, L100.0100, L501.5200 ####[facility] [address] [place], [address] Sodium [Moles/Vol] 136 mmol/L Normal 133-145 [facility] Comment on above: Performed By: #### L 500.4050, L100.0100, L501.5200 ####[facility] [address] [place], [address] T PROT 6.1 g/dL Normal 5.9-8.4 [facility] Comment on above: Performed By: #### L 500.4050, L100.0100, L501.5200 ####[facility] [address] [place], [place], [id number] Urea nitrogen [Mass/Vol] 15 mg/dL Normal 4-19 [facility] Comment on above: Performed By: #### L 500.4050, L100.0100, L501.5200 ####[facility] [address] [place], [place], [id number] Eosinophil percentageOrdered By: Imani Persaud on 07-12-2025 Eosinophils/100 WBC (Bld) 9.4 % High 0-5 [facility] Erythrocyte distribution wid th ratioOrdered By: [facility] Systemira Persaud on 07-12-2025 Erythrocyte distribution width (RBC) [Ratio] 17.5 % High 11.6-14.6 [facility] Erythrocyte distribution wid th standard deviationOrdered By: [facility] Systemira Persaud on 07-12-2025 Erythrocyte distribution width (RBC) [Ratio] 65.5 fl High 35.1-43.9 [facility] Glomerular filtration rate ( GFR) estimation/1.73 sq m using serum, plasma, or whole bOrdered By: Imani Persaud on 07-12-2025 GFR/1.73 sq M.predicted among non-blacks MDRD (S/P/Bld) [Vol rate/Area] 109 mL/min/{1.73_m2} >60 [facility] Comment on above: mL/min/1.73m2 CKD-EP I Creatinine Equation (2020) Hematocrit Auto (Bld) [Volum e fraction]Ordered By: Imani Persaud on 07-12-2025 Hematocrit (Bld) [Volume fraction] 36.5 % Low 37-47 [facility] Hemoglobin measurementOrdere d By: Imani Persaud on 07-12-2025 Hemoglobin (Bld) [Mass/Vol] 11.6 g/dL Low 12.0-15.0 [facility] Immature granulocytes/100 WB C Auto (Bld)Ordered By: Imani Persaud on 07-12-2025 Immature granulocytes/100 WBC (Bld) 0.500 % 0.0-0.9 [facility] Comment on above: IG% - Immature Granu locytes (promyelocytes, myelocytes and metamyelocytes) > 1% indicates that a LEFT SHIFT is Present. Laboratory - Chemistry and C hemistry - challengeOrdered By: Imani Persaud on 07-12-2025 AST [Catalytic activity/Vol] 24 U/L <32 [facility] Laboratory - Hematology and Cell countsOrdered By: Imani Persaud on 07-12-2025 Anisocytosis Ql (Bld) 1+ [facility] MCV (mean corpuscular volume ) determinationOrdered By: [facility] Systemira Persaud on 07-12-2025 MCV (RBC) [Entitic vol] 100.0 fL High 81-99 [facility] Magnesiumon 07-12-2025 Magnesium [Mass/Vol] 2.1 mg/dL Normal 1.5-2.2 [facility] Comment on above: Performed By: #### L 500.4050, L100.0100, L501.5200 ####[facility] [address] [place], [address] Magnesium measurement (mass/ volume)Ordered By: [facility] Systemira Persaud on 07-12-2025 Magnesium (Unsp spec) [Mass/Vol] 2.1 mg/dL 1.5-2.2 [facility] Mean corpuscular hemoglobin (MCH) determinationOrdered By: [facility] Persaud on 07-12-2025 MCH (RBC) [Entitic mass] 31.8 pg 27.0-32.0 [facility] Mean corpuscular hemoglobin concentration (MCHC) determinationOrdered By: Imani Persaud on 07-12-2025 MCHC (RBC) [Mass/Vol] 31.8 g/dL Low 32-36 [facility] Mean platelet volume determi nationOrdered By: [facility] Systemira Persaud on 07-12-2025 Platelet mean volume (Bld) [Entitic vol] 9.9 fL 6.2-12.0 [facility] Monocyte percentageOrdered B y: Imani Persaud on 07-12-2025 Monocytes/100 WBC (Bld) 7.7 % 0-10 [facility] Neutrophil percentageOrdered By: [facility] Systemira Persaud on 07-12-2025 Neutrophils/100 WBC (Bld) 56.8 % 47-70 [facility] No Panel InformationOrdered By: Imani Persaud on 07-12-2025 1+ [facility] 24 U/L <32 [facility] Nucleated red blood cell per centageOrdered By: Imani Persaud on 07-12-2025 Nucleated RBC/100 WBC (Bld) [Ratio] 0 % 0-5 [facility] Oncology Visit Reporton 06-16 Oncology Visit Report Normal [facility] Phosphoruson 07-12-2025 Phosphate [Mass/Vol] 3.1 mg/dL Normal 2.7-4.5 [facility] Comment on above: Performed By: #### L 501.2300 ####[facility] [address] [place], [address] Platelet countOrdered By: Jonatan Persaud on 07-12-2025 Platelets (Bld) [#/Vol] 188 10*3/uL 150-450 [facility] Platelet estimateOrdered By: Imani Persaud on 07-12-2025 Platelets LM Ql (Bld) ADEQUATE ADEQ [facility] Potassium measurement (mass/ volume)Ordered By: Imani Persaud on 07-12-2025 Potassium (Unsp spec) [Mass/Vol] 4.2 mmol/L 3.3-5.1 [facility] RBC Auto (Bld) [#/Vol]Ordere d By: Imani Persaud on 07-12-2025 RBC (Bld) [#/Vol] 3.65 10*6/uL Low 4.2-5.4 [facility] Serum creatinine measurement (mass/volume)Ordered By: Imani Persaud on 07-12-2025 Creatinine [Mass/Vol] 0.54 mg/dL Low 0.70-1.20 [facility] Serum globulin measurementOr dered By: Imani Persaud on 07-12-2025 Globulin (S) [Mass/Vol] 2.8 g/dL 2.2-4.2 [facility] Serum glucose measurement (m ass/volume)Ordered By: Imani Persaud on 07-12-2025 Glucose [Mass/Vol] 114 mg/dL High 70-99 [facility] Serum or plasma alanine del rio otransferase (ALT) measurementOrdered By: Imani Persaud on 07-12-2025 ALT [Catalytic activity/Vol] 15 U/L <35 [facility] Serum or plasma albumin cass urement (mass/volume)Ordered By: Imani Persaud on 07-12-2025 Albumin [Mass/Vol] 3.3 g/dL Low 3.5-5.0 [facility] Serum or plasma albumin/glob ulin mass ratioOrdered By: Imani Persaud on 07-12-2025 Albumin/Globulin [Mass ratio] 1.2 {ratio} 0.9-2.4 [facility] Serum or plasma alkaline tre sphatase measurementOrdered By: Imani Persaud on 07-12-2025 ALP [Catalytic activity/Vol] 83 U/L 35-104 [facility] Serum or plasma calcium cass urement (mass/volume)Ordered By: Imani Persaud on 07-12-2025 Calcium [Mass/Vol] 8.6 mg/dL 7.6-11.0 [facility] Serum or plasma urea nitroge n measurement (mass/volume)Ordered By: Imani Persaud on 07-12-2025 Urea nitrogen [Mass/Vol] 15 mg/dL 4-19 [facility] Sodium levelOrdered By: Jennifer Persaud on 07-12-2025 Sodium [Moles/Vol] 136 mmol/L 133-145 [facility] Total proteinOrdered By: Lonnie Persaud on 07-12-2025 Protein [Mass/Vol] 6.1 g/dL 5.9-8.4 [facility] White blood cell (WBC) count Ordered By: Imani Persaud on 07-12-2025 WBC (Bld) [#/Vol] 4.1 10*3/uL Low 4.4-11.0 [facility] Absolute lymphocyte countOrd ered By: Richi Moore on 06-28-2025 Lymphocytes Auto (Unsp spec) [#/Vol] 1.09 10*3/uL 0.83-4.51 [facility] Absolute neutrophil countOrd ered By: Richi Moore on 06-28-2025 Neutrophils (Bld) [#/Vol] 3.5 10*3/uL 2.0-7.7 [facility] Anion gap in Serum or Plasma Ordered By: Richi Moore on 06-28-2025 Anion gap [Moles/Vol] 12 mmol/L 5-15 [facility] Automated lymphocyte count a s percentage of total leukocytesOrdered By: Richi Moore on 06-28-2025 Lymphocytes/100 WBC Auto (Unsp spec) 21.2 % - [facility] BUN/creatinine ratioOrdered By: Richi Moore on 06-28-2025 Urea nitrogen/Creatinine [Mass ratio] 13.6 mg/mg 10- [facility] Basophil percentageOrdered B y: Richi Moore on 06-28-2025 Basophils/100 WBC (Bld) 0.8 % 0-1 [facility] Bilirubin, totalOrdered By: Richi Moore on 06-28-2025 Bilirubin [Mass/Vol] 0.86 mg/dL 0.00-1.30 [facility] Blood manual differential co mment interpretation (narrative result)Ordered By: Richi Moore on 06-28-2025 Manual differential comment Bassam (Bld) [Interp] SCANNED [facility] CBC W/Diff, Automatedon 06-15 Anisocytosis Ql (Bld) 2+ Normal [facility] Comment on above: Performed By: #### L 501.5200, L100.0100, L500.4050 ####[facility] [address] [place], [place], [id number] SMEAR COMMENT SCANNED Normal [facility] Comment on above: Performed By: #### L 501.5200, L100.0100, L500.4050 ####[facility] [address] [place], [place], [id number] Carbon dioxide, total [Moles /volume] in Central venous bloodOrdered By: Richi Moore on 06-28-2025 CO2 [Moles/Vol] 22.2 mmol/L 21.0-32.0 [facility] Chloride assayOrdered By: Yuridia Moore on 06-28-2025 Chloride [Moles/Vol] 104 mmol/L 98-108 [facility] Comprehensive Metabolic Prof ilon 06-28-2025 Albumin [Mass/Vol] 3.4 g/dL Low 3.5-5.0 [facility] Comment on above: Performed By: #### L 501.5200, L100.0100, L500.4050 ####[facility] [address] [place], [address] Albumin/Globulin [Mass ratio] 1.2 {ratio} Normal 0.9-2.4 [facility] Comment on above: Performed By: #### L 501.5200, L100.0100, L500.4050 ####[facility] [address] [place], [address] ALK PHOS 92 U/L Normal 35-104 [facility] Comment on above: Performed By: #### L 501.5200, L100.0100, L500.4050 ####[facility] [address] [place], [address] ALT [Catalytic activity/Vol] 21 U/L Normal <=34 [facility] Comment on above: Performed By: #### L 501.5200, L100.0100, L500.4050 ####[facility] [address] [place], [address] AST [Catalytic activity/Vol] 35 U/L High <=31 [facility] Comment on above: Performed By: #### L 501.5200, L100.0100, L500.4050 ####[facility] [address] [place], [address] Bilirubin [Mass/Vol] 0.86 mg/dL Normal 0.00-1.30 [facility] Comment on above: Performed By: #### L 501.5200, L100.0100, L500.4050 ####[facility] [address] [place], [address] BUN/CRE 13.6 RATIO Normal 10-20 [facility] Comment on above: Performed By: #### L 501.5200, L100.0100, L500.4050 ####[facility] [address] [place], [address] Calcium [Mass/Vol] 8.7 mg/dL Normal 7.6-11.0 [facility] Comment on above: Performed By: #### L 501.5200, L100.0100, L500.4050 ####[facility] [address] [place], [address] Chloride [Moles/Vol] 104 mmol/L Normal 98-108 [facility] Comment on above: Performed By: #### L 501.5200, L100.0100, L500.4050 ####[facility] [address] [place], [address] CO2 [Moles/Vol] 22.2 mmol/L Normal 21.0-32.0 [facility] Comment on above: Performed By: #### L 501.5200, L100.0100, L500.4050 ####[facility] [address] [place], [address] Creatinine [Mass/Vol] 0.62 mg/dL Low 0.70-1.20 [facility] Comment on above: Performed By: #### L 501.5200, L100.0100, L500.4050 ####[facility] [address] [place], [address] ECRCL 123.96 ml/min Normal 50-250 [facility] Comment on above: Performed By: #### L 501.5200, L100.0100, L500.4050 ####[facility] [address] [place], [address] GAP 12 Normal 5-15 [facility] Comment on above: Performed By: #### L 501.5200, L100.0100, L500.4050 ####[facility] [address] [place], [address] GFR/1.73 sq M.predicted among non-blacks MDRD (S/P/Bld) [Vol rate/Area] 106 mL/min/{1.73_m2} Normal >60 [facility] Comment on above: Result Comment: mL/m in/1.73m2 CKD-EPI Creatinine Equation (2020) Performed By: #### L 501.5200, L100.0100, L500.4050 ####[facility] [address] [place], [address] Globulin (S) [Mass/Vol] 2.9 g/dL Normal 2.2-4.2 [facility] Comment on above: Performed By: #### L 501.5200, L100.0100, L500.4050 ####[facility] [address] [place], [address] Glucose [Mass/Vol] 128 mg/dL High 70-99 [facility] Comment on above: Performed By: #### L 501.5200, L100.0100, L500.4050 ####[facility] [address] [place], [address] Potassium [Moles/Vol] 3.8 mmol/L Normal 3.3-5.1 [facility] Comment on above: Performed By: #### L 501.5200, L100.0100, L500.4050 ####[facility] [address] [place], [address] Sodium [Moles/Vol] 138 mmol/L Normal 133-145 [facility] Comment on above: Performed By: #### L 501.5200, L100.0100, L500.4050 ####[facility] [address] [place], [address] T PROT 6.3 g/dL Normal 5.9-8.4 [facility] Comment on above: Performed By: #### L 501.5200, L100.0100, L500.4050 ####[facility] [address] [place], [address] Urea nitrogen [Mass/Vol] 8 mg/dL Normal 4-19 [facility] Comment on above: Performed By: #### L 501.5200, L100.0100, L500.4050 ####[facility] [address] [place], [address] Eosinophil percentageOrdered By: Richi Moore on 06-28-2025 Eosinophils/100 WBC (Bld) 1.0 % 0-5 [facility] Erythrocyte distribution wid th ratioOrdered By: Richi Moore on 06-28-2025 Erythrocyte distribution width (RBC) [Ratio] 23.6 % High 11.6-14.6 [facility] Erythrocyte distribution wid th standard deviationOrdered By: Richi Moore on 06-28-2025 Erythrocyte distribution width (RBC) [Ratio] 85.0 fl High 35.1-43.9 [facility] Glomerular filtration rate ( GFR) estimation/1.73 sq m using serum, plasma, or whole bOrdered By: Richi Moore on 06-28-2025 GFR/1.73 sq M.predicted among non-blacks MDRD (S/P/Bld) [Vol rate/Area] 106 mL/min/{1.73_m2} >60 [facility] Comment on above: mL/min/1.73m2 CKD-EP I Creatinine Equation (2020) Hematocrit Auto (Bld) [Volum e fraction]Ordered By: Richi Moore on 06-28-2025 Hematocrit (Bld) [Volume fraction] 33.8 % Low 37-47 [facility] Hemoglobin measurementOrdere d By: Richi Moore on 06-28-2025 Hemoglobin (Bld) [Mass/Vol] 10.8 g/dL Low 12.0-15.0 [facility] Immature granulocytes/100 WB C Auto (Bld)Ordered By: Richi Moore on 06-28-2025 Immature granulocytes/100 WBC (Bld) 1.600 % High 0.0-0.9 [facility] Comment on above: IG% - Immature Granu locytes (promyelocytes, myelocytes and metamyelocytes) > 1% indicates that a LEFT SHIFT is Present. Laboratory - Chemistry and C hemistry - challengeOrdered By: Richi Moore on 06-28-2025 AST [Catalytic activity/Vol] 35 U/L High <32 [facility] Laboratory - Hematology and Cell countsOrdered By: Richi Moore on 06-28-2025 Anisocytosis Ql (Bld) 2+ [facility] MCV (mean corpuscular volume ) determinationOrdered By: Richi Moore on 06-28-2025 MCV (RBC) [Entitic vol] 100.0 fL High 81-99 [facility] Magnesiumon 06-28-2025 Magnesium [Mass/Vol] 2.4 mg/dL High 1.5-2.2 [facility] Comment on above: Performed By: #### L 501.5200, L100.0100, L500.4050 ####[facility] [address] [place], [place], [id number] Magnesium measurement (mass/ volume)Ordered By: Richi Moore on 06-28-2025 Magnesium (Unsp spec) [Mass/Vol] 2.4 mg/dL High 1.5-2.2 [facility] Mean corpuscular hemoglobin (MCH) determinationOrdered By: Richi Moore on 06-28-2025 MCH (RBC) [Entitic mass] 32.0 pg 27.0-32.0 [facility] Mean corpuscular hemoglobin concentration (MCHC) determinationOrdered By: Richi Moore on 06-28-2025 MCHC (RBC) [Mass/Vol] 32.0 g/dL 32-36 [facility] Mean platelet volume determi nationOrdered By: Richi Moore on 06-28-2025 Platelet mean volume (Bld) [Entitic vol] 10.6 fL 6.2-12.0 [facility] Monocyte percentageOrdered B y: Richi Moore on 06-28-2025 Monocytes/100 WBC (Bld) 7.6 % 0-10 [facility] Neutrophil percentageOrdered By: Richi Moore on 06-28-2025 Neutrophils/100 WBC (Bld) 67.8 % 47-70 [facility] Nucleated red blood cell per centageOrdered By: Richi Moore on 06-28-2025 Nucleated RBC/100 WBC (Bld) [Ratio] 0.6 % 0-5 [facility] Oncology Visit Reporton 06-15 Oncology Visit Report Normal [facility] Platelet countOrdered By: Yuridia Moore on 06-28-2025 Platelets (Bld) [#/Vol] 157 10*3/uL 150-450 [facility] Potassium measurement (mass/ volume)Ordered By: Richi Moore on 06-28-2025 Potassium (Unsp spec) [Mass/Vol] 3.8 mmol/L 3.3-5.1 [facility] RBC Auto (Bld) [#/Vol]Ordere d By: Richi Moore on 06-28-2025 RBC (Bld) [#/Vol] 3.38 10*6/uL Low 4.2-5.4 [facility] Serum creatinine measurement (mass/volume)Ordered By: Richi Moore on 06-28-2025 Creatinine [Mass/Vol] 0.62 mg/dL Low 0.70-1.20 [facility] Serum globulin measurementOr dered By: Richi Moore on 06-28-2025 Globulin (S) [Mass/Vol] 2.9 g/dL 2.2-4.2 [facility] Serum glucose measurement (m ass/volume)Ordered By: Richi Moore on 06-28-2025 Glucose [Mass/Vol] 128 mg/dL High 70-99 [facility] Serum or plasma alanine del rio otransferase (ALT) measurementOrdered By: Richi Moore on 06-28-2025 ALT [Catalytic activity/Vol] 21 U/L <35 [facility] Serum or plasma albumin cass urement (mass/volume)Ordered By: Richi Moore on 06-28-2025 Albumin [Mass/Vol] 3.4 g/dL Low 3.5-5.0 [facility] Serum or plasma albumin/glob ulin mass ratioOrdered By: Richi Moore on 06-28-2025 Albumin/Globulin [Mass ratio] 1.2 {ratio} 0.9-2.4 [facility] Serum or plasma alkaline tre sphatase measurementOrdered By: Richi Moore on 06-28-2025 ALP [Catalytic activity/Vol] 92 U/L 35-104 [facility] Serum or plasma calcium cass urement (mass/volume)Ordered By: Richi Moore on 06-28-2025 Calcium [Mass/Vol] 8.7 mg/dL 7.6-11.0 [facility] Serum or plasma urea nitroge n measurement (mass/volume)Ordered By: Richi Moore on 06-28-2025 Urea nitrogen [Mass/Vol] 8 mg/dL 4-19 [facility] Sodium levelOrdered By: Marques Moore on 06-28-2025 Sodium [Moles/Vol] 138 mmol/L 133-145 [facility] Total proteinOrdered By: Brad Moore on 06-28-2025 Protein [Mass/Vol] 6.3 g/dL 5.9-8.4 [facility] White blood cell (WBC) count Ordered By: Richi Moore on 06-28-2025 WBC (Bld) [#/Vol] 5.1 10*3/uL 4.4-11.0 [facility] Absolute lymphocyte countOrd ered By: Richi Moore on 06-14-2025 Lymphocytes Auto (Unsp spec) [#/Vol] 1.14 10*3/uL 0.83-4.51 [facility] Absolute neutrophil countOrd ered By: Richi Moore on 06-14-2025 Neutrophils (Bld) [#/Vol] 2.9 10*3/uL 2.0-7.7 [facility] Anion gap in Serum or Plasma Ordered By: Richi Moore on 06-14-2025 Anion gap [Moles/Vol] 10 mmol/L 5-15 [facility] Automated lymphocyte count a s percentage of total leukocytesOrdered By: Richi Moore on 06-14-2025 Lymphocytes/100 WBC Auto (Unsp spec) 23.5 % 19-41 [facility] BUN/creatinine ratioOrdered By: Richi Moore on 06-14-2025 Urea nitrogen/Creatinine [Mass ratio] 10.8 mg/mg 10-20 [facility] Basic Metabolic Profile (BMP )on 06-14-2025 BUN Normal 4-19 [facility] Comment on above: Result Comment: DUPL ICATE Performed By: #### L 500.2500 ####[facility] [address] [place], [address] BUN/CRE Normal 10-20 [facility] Comment on above: Result Comment: DUPL ICATE Performed By: #### L 500.2500 ####[facility] [address] [place], [address] Calcium Normal 7.6-11.0 [facility] Comment on above: Result Comment: DUPL ICATE Performed By: #### L 500.2500 ####[facility] [address] [place], [address] CL Normal 98-108 [facility] Comment on above: Result Comment: DUPL ICATE Performed By: #### L 500.2500 ####[facility] [address] [place], [address] CO2 Normal 21.0-32.0 [facility] Comment on above: Result Comment: DUPL ICATE Performed By: #### L 500.2500 ####[facility] [address] [place], [address] CREAT,SERUM Normal 0.70-1.20 [facility] Comment on above: Result Comment: DUPL ICATE Performed By: #### L 500.2500 ####[facility] [address] [place], [address] eGFR Normal >60 [facility] Comment on above: Result Comment: DUPL ICATE Performed By: #### L 500.2500 ####[facility] [address] [place], [address] GAP Normal 5-15 [facility] Comment on above: Result Comment: DUPL ICATE Performed By: #### L 500.2500 ####[facility] [address] [place], [address] GLU Normal 70-99 [facility] Comment on above: Result Comment: DUPL ICATE Performed By: #### L 500.2500 ####[facility] [address] [place], [address] Potassium Normal 3.3-5.1 [facility] Comment on above: Result Comment: DUPL ICATE Performed By: #### L 500.2500 ####[facility] [address] [place], [address] Basic Metabolic Profile (BMP) Normal 133-145 [facility] Comment on above: Result Comment: DUPL ICATE Performed By: #### L 500.2500 ####[facility] [address] [place], [address] Basophil percentageOrdered B y: Richi Moore on 06-14-2025 Basophils/100 WBC (Bld) 1.2 % High 0-1 [facility] Bilirubin, totalOrdered By: Richi Moore on 06-14-2025 Bilirubin [Mass/Vol] 0.60 mg/dL 0.00-1.30 [facility] Blood polychromasia detectio n by light microscopyOrdered By: Richi Moore on 06-14-2025 Polychromasia LM Ql (Bld) 2+ [facility] CBC W/Diff, Automatedon 05-17 Anisocytosis Ql (Bld) 2+ Normal [facility] Comment on above: Performed By: #### L 100.0100, L500.4050, L501.5200 ####[facility] [address] [place], [address] MACROCYTOSIS 1+ Normal [facility] Comment on above: Performed By: #### L 100.0100, L500.4050, L501.5200 ####[facility] [address] [place], [address] PLT EST A Normal ADEQ [facility] Comment on above: Performed By: #### L 100.0100, L500.4050, L501.5200 ####[facility] [address] [place], [address] POLYCHROMASIA 2+ Normal [facility] Comment on above: Performed By: #### L 100.0100, L500.4050, L501.5200 ####[facility] [address] [place], [address] Carbon dioxide, total [Moles /volume] in Central venous bloodOrdered By: Richi Moore on 06-14-2025 CO2 [Moles/Vol] 21.7 mmol/L 21.0-32.0 [facility] Chloride assayOrdered By: Yuridia Moore on 06-14-2025 Chloride [Moles/Vol] 106 mmol/L 98-108 [facility] Comprehensive Metabolic Prof ilon 06-14-2025 Albumin [Mass/Vol] 3.5 g/dL Normal 3.5-5.0 [facility] Comment on above: Performed By: #### L 100.0100, L500.4050, L501.5200 ####[facility] [address] [place], [address] Albumin/Globulin [Mass ratio] 1.2 {ratio} Normal 0.9-2.4 [facility] Comment on above: Performed By: #### L 100.0100, L500.4050, L501.5200 ####[facility] [address] [place], [address] ALK PHOS 110 U/L High 35-104 [facility] Comment on above: Performed By: #### L 100.0100, L500.4050, L501.5200 ####[facility] [address] [place], [address] ALT [Catalytic activity/Vol] 33 U/L Normal <=34 [facility] Comment on above: Performed By: #### L 100.0100, L500.4050, L501.5200 ####[facility] [address] [place], [address] AST [Catalytic activity/Vol] 25 U/L Normal <=31 [facility] Comment on above: Performed By: #### L 100.0100, L500.4050, L501.5200 ####[facility] [address] [place], [address] Bilirubin [Mass/Vol] 0.60 mg/dL Normal 0.00-1.30 [facility] Comment on above: Performed By: #### L 100.0100, L500.4050, L501.5200 ####[facility] [address] [place], [address] BUN/CRE 10.8 RATIO Normal 10-20 [facility] Comment on above: Performed By: #### L 100.0100, L500.4050, L501.5200 ####[facility] [address] [place], [address] Calcium [Mass/Vol] 8.9 mg/dL Normal 7.6-11.0 [facility] Comment on above: Performed By: #### L 100.0100, L500.4050, L501.5200 ####[facility] [address] [place], [address] Chloride [Moles/Vol] 106 mmol/L Normal 98-108 [facility] Comment on above: Performed By: #### L 100.0100, L500.4050, L501.5200 ####[facility] [address] [place], [address] CO2 [Moles/Vol] 21.7 mmol/L Normal 21.0-32.0 [facility] Comment on above: Performed By: #### L 100.0100, L500.4050, L501.5200 ####[facility] [address] [place], [address] Creatinine [Mass/Vol] 0.58 mg/dL Low 0.70-1.20 [facility] Comment on above: Performed By: #### L 100.0100, L500.4050, L501.5200 ####[facility] [address] [place], [address] ECRCL 131.47 ml/min Normal 50-250 [facility] Comment on above: Performed By: #### L 100.0100, L500.4050, L501.5200 ####[facility] [address] [place], [address] GAP 10 Normal 5-15 [facility] Comment on above: Performed By: #### L 100.0100, L500.4050, L501.5200 ####[facility] [address] [place], [address] GFR/1.73 sq M.predicted among non-blacks MDRD (S/P/Bld) [Vol rate/Area] 107 mL/min/{1.73_m2} Normal >60 [facility] Comment on above: Result Comment: mL/m in/1.73m2 CKD-EPI Creatinine Equation (2020) Performed By: #### L 100.0100, L500.4050, L501.5200 ####[facility] [address] [place], [address] Globulin (S) [Mass/Vol] 2.9 g/dL Normal 2.2-4.2 [facility] Comment on above: Performed By: #### L 100.0100, L500.4050, L501.5200 ####[facility] [address] [place], [address] Glucose [Mass/Vol] 138 mg/dL High 70-99 [facility] Comment on above: Performed By: #### L 100.0100, L500.4050, L501.5200 ####[facility] [address] [place], [address] Potassium [Moles/Vol] 4.6 mmol/L Normal 3.3-5.1 [facility] Comment on above: Performed By: #### L 100.0100, L500.4050, L501.5200 ####[facility] [address] [place], [address] Sodium [Moles/Vol] 137 mmol/L Normal 133-145 [facility] Comment on above: Performed By: #### L 100.0100, L500.4050, L501.5200 ####[facility] [address] [place], [address] T PROT 6.5 g/dL Normal 5.9-8.4 [facility] Comment on above: Performed By: #### L 100.0100, L500.4050, L501.5200 ####[facility] [address] [place], [address] Urea nitrogen [Mass/Vol] 6 mg/dL Normal 4-19 [facility] Comment on above: Performed By: #### L 100.0100, L500.4050, L501.5200 ####[facility] [address] [place], [address] Eosinophil percentageOrdered By: Richi Moore on 06-14-2025 Eosinophils/100 WBC (Bld) 7.0 % High 0-5 [facility] Erythrocyte distribution wid th ratioOrdered By: Richi Moore on 06-14-2025 Erythrocyte distribution width (RBC) [Ratio] 24.6 % High 11.6-14.6 [facility] Erythrocyte distribution wid th standard deviationOrdered By: Richi Moore on 06-14-2025 Erythrocyte distribution width (RBC) [Ratio] 85.0 fl High 35.1-43.9 [facility] Glomerular filtration rate ( GFR) estimation/1.73 sq m using serum, plasma, or whole bOrdered By: Richi Moore on 06-14-2025 GFR/1.73 sq M.predicted among non-blacks MDRD (S/P/Bld) [Vol rate/Area] 107 mL/min/{1.73_m2} >60 [facility] Comment on above: mL/min/1.73m2 CKD-EP I Creatinine Equation (2020) Hematocrit Auto (Bld) [Volum e fraction]Ordered By: Richi Moore on 06-14-2025 Hematocrit (Bld) [Volume fraction] 32.5 % Low 37-47 [facility] Hemoglobin measurementOrdere d By: Richi Moore on 06-14-2025 Hemoglobin (Bld) [Mass/Vol] 10.2 g/dL Low 12.0-15.0 [facility] Immature granulocytes/100 WB C Auto (Bld)Ordered By: Richi Moore on 06-14-2025 Immature granulocytes/100 WBC (Bld) 0.600 % 0.0-0.9 [facility] Comment on above: IG% - Immature Granu locytes (promyelocytes, myelocytes and metamyelocytes) > 1% indicates that a LEFT SHIFT is Present. Laboratory - Chemistry and C hemistry - challengeOrdered By: Richi Moore on 06-14-2025 AST [Catalytic activity/Vol] 25 U/L <32 [facility] Laboratory - Hematology and Cell countsOrdered By: Richi Moore on 06-14-2025 Anisocytosis Ql (Bld) 2+ [facility] MCV (mean corpuscular volume ) determinationOrdered By: Richi [facility] on 06-14-2025 MCV (RBC) [Entitic vol] 98.2 fL 81-99 [facility] Macrocytes detectionOrdered By: Richi [facility] on 06-14-2025 Macrocytes Ql (Bld) 1+ [facility] Magnesiumon 06-14-2025 Magnesium [Mass/Vol] 2.4 mg/dL High 1.5-2.2 [facility] Comment on above: Performed By: #### L 100.0100, L500.4050, L501.5200 ####[place] [facility] [address] [place], [address] Magnesium measurement (mass/ volume)Ordered By: Richi Moore on 06-14-2025 Magnesium (Unsp spec) [Mass/Vol] 2.4 mg/dL High 1.5-2.2 [facility] Mean corpuscular hemoglobin (MCH) determinationOrdered By: Richi Moore on 06-14-2025 MCH (RBC) [Entitic mass] 30.8 pg 27.0-32.0 [facility] Mean corpuscular hemoglobin concentration (MCHC) determinationOrdered By: Richi Moore on 06-14-2025 MCHC (RBC) [Mass/Vol] 31.4 g/dL Low 32-36 [facility] Mean platelet volume determi nationOrdered By: Richi Moore on 06-14-2025 Platelet mean volume (Bld) [Entitic vol] 10.3 fL 6.2-12.0 [facility] Monocyte percentageOrdered B y: Richi Moore on 06-14-2025 Monocytes/100 WBC (Bld) 7.2 % 0-10 [facility] Neutrophil percentageOrdered By: Richi Moore on 06-14-2025 Neutrophils/100 WBC (Bld) 60.5 % 47-70 [facility] Nucleated red blood cell per centageOrdered By: Richi Moore on 06-14-2025 Nucleated RBC/100 WBC (Bld) [Ratio] 0 % 0-5 [facility] Oncology Visit Reporton 05-17 Oncology Visit Report Normal [facility] Platelet countOrdered By: Yuridia Moore on 06-14-2025 Platelets (Bld) [#/Vol] 189 10*3/uL 150-450 [facility] Platelet estimateOrdered By: Richi Moore on 06-14-2025 Platelets LM Ql (Bld) A ADEQ [facility] Potassium measurement (mass/ volume)Ordered By: Richi Moore on 06-14-2025 Potassium (Unsp spec) [Mass/Vol] 4.6 mmol/L 3.3-5.1 [facility] RBC Auto (Bld) [#/Vol]Ordere d By: Richi Moore on 06-14-2025 RBC (Bld) [#/Vol] 3.31 10*6/uL Low 4.2-5.4 [facility] Serum creatinine measurement (mass/volume)Ordered By: Richi Moore on 06-14-2025 Creatinine [Mass/Vol] 0.58 mg/dL Low 0.70-1.20 [facility] Serum globulin measurementOr dered By: Richi Moore on 06-14-2025 Globulin (S) [Mass/Vol] 2.9 g/dL 2.2-4.2 [facility] Serum glucose measurement (m ass/volume)Ordered By: Richi Moore on 06-14-2025 Glucose [Mass/Vol] 138 mg/dL High 70-99 [facility] Serum or plasma alanine del rio otransferase (ALT) measurementOrdered By: Richi Moore on 06-14-2025 ALT [Catalytic activity/Vol] 33 U/L <35 [facility] Serum or plasma albumin cass urement (mass/volume)Ordered By: Richi Moore on 06-14-2025 Albumin [Mass/Vol] 3.5 g/dL 3.5-5.0 [facility] Serum or plasma albumin/glob ulin mass ratioOrdered By: Richi Moore on 06-14-2025 Albumin/Globulin [Mass ratio] 1.2 {ratio} 0.9-2.4 [facility] Serum or plasma alkaline tre sphatase measurementOrdered By: Richi Moore on 06-14-2025 ALP [Catalytic activity/Vol] 110 U/L High 35-104 [facility] Serum or plasma calcium cass urement (mass/volume)Ordered By: Richi Moore on 06-14-2025 Calcium [Mass/Vol] 8.9 mg/dL 7.6-11.0 [facility] Serum or plasma urea nitroge n measurement (mass/volume)Ordered By: Richi Moore on 06-14-2025 Urea nitrogen [Mass/Vol] 6 mg/dL 4-19 [facility] Sodium levelOrdered By: Marques Moore on 06-14-2025 Sodium [Moles/Vol] 137 mmol/L 133-145 [facility] Total proteinOrdered By: Brad Moore on 06-14-2025 Protein [Mass/Vol] 6.5 g/dL 5.9-8.4 [facility] White blood cell (WBC) count Ordered By: Richi Moore on 06-14-2025 WBC (Bld) [#/Vol] 4.9 10*3/uL 4.4-11.0 [facility] Abdomen Limitedon 06-08-2025 Abdomen Limited Normal [facility] Absolute lymphocyte countOrd ered By: [facility] Persaud on 06-07-2025 Lymphocytes Auto (Unsp spec) [#/Vol] 1.17 10*3/uL 0.83-4.51 [facility] Absolute neutrophil countOrd ered By: [facility] on 06-07-2025 Neutrophils (Bld) [#/Vol] 1.8 10*3/uL Low 2.0-7.7 [facility] Anion gap in Serum or Plasma Ordered By: Imani Persaud on 06-07-2025 Anion gap [Moles/Vol] 13 mmol/L 5-15 [facility] Automated lymphocyte count a s percentage of total leukocytesOrdered By: Imani Persaud on 06-07-2025 Lymphocytes/100 WBC Auto (Unsp spec) 35.0 % 19-41 [facility] BUN/creatinine ratioOrdered By: [facility] on 06-07-2025 Urea nitrogen/Creatinine [Mass ratio] 14.8 mg/mg 10-20 [facility] Basophil percentageOrdered B y: Imani Persaud on 06-07-2025 Basophils/100 WBC (Bld) 1.5 % High 0-1 [facility] Bilirubin directOrdered By: Delmis Corral on 06-07-2025 Bilirubin.direct [Mass/Vol] 0.34 mg/dL High 0.00-0.30 [facility] Bilirubin, Directon 06-07-20 25 Bilirubin.direct [Mass/Vol] 0.34 mg/dL High 0.00-0.30 [facility] Comment on above: Order Comment: ADD O N Performed By: #### L 503.6030, L501.9520, L501.4700, L503.0106 ####[facility] [address] [place], [address] Bilirubin, totalOrdered By: Imani Persaud on 06-07-2025 Bilirubin [Mass/Vol] 0.75 mg/dL 0.00-1.30 [facility] CBC W/Diff, Automatedon 05-16 Absolute Lymph 1.17 X10 3/uL Normal 0.83-4.51 [facility] Comment on above: Performed By: #### L 100.0100, L500.4050, L501.5200 ####[facility] [address] [place], [address] Absolute Neut 1.8 X10 3/uL Low 2.0-7.7 [facility] Comment on above: Performed By: #### L 100.0100, L500.4050, L501.5200 ####[facility] [address] [place], [address] Basophils/100 WBC (Bld) 1.5 % High 0-1 [facility] Comment on above: Performed By: #### L 100.0100, L500.4050, L501.5200 ####[facility] [address] [place], [address] Eosinophils/100 WBC (Bld) 0.3 % Normal 0-5 [facility] Comment on above: Performed By: #### L 100.0100, L500.4050, L501.5200 ####[facility] [address] [place], [address] Erythrocyte distribution width (RBC) [Ratio] 19.9 % High 11.6-14.6 [facility] Comment on above: Performed By: #### L 100.0100, L500.4050, L501.5200 ####[facility] [address] [place], [address] Hematocrit (Bld) [Volume fraction] 24.9 % Low 37-47 [facility] Comment on above: Performed By: #### L 100.0100, L500.4050, L501.5200 ####[facility] [address] [place], [address] Hemoglobin (Bld) [Mass/Vol] 8.3 g/dL Low 12.0-15.0 [facility] Comment on above: Performed By: #### L 100.0100, L500.4050, L501.5200 ####[facility] [address] [place], [address] IG% 1.200 High 0.0-0.9 [facility] Comment on above: Result Comment: IG% - Immature Granulocytes (promyelocytes, myelocytes andmetamyelocytes) > 1% indicates that a LEFT SHIFT is Present. Performed By: #### L 100.0100, L500.4050, L501.5200 ####[facility] [address] [place], [address] Lymphocytes/100 WBC (Bld) 35.0 % Normal 19-41 [facility] Comment on above: Performed By: #### L 100.0100, L500.4050, L501.5200 ####[facility] [address] [place], [address] MCH (RBC) [Entitic mass] 29.4 pg Normal 27.0-32.0 [facility] Comment on above: Performed By: #### L 100.0100, L500.4050, L501.5200 ####[facility] [address] [place], [address] MCHC (RBC) [Mass/Vol] 33.3 g/dL Normal 32-36 [facility] Comment on above: Performed By: #### L 100.0100, L500.4050, L501.5200 ####[facility] [address] [place], [address] MCV (RBC) [Entitic vol] 88.3 fL Normal 81-99 [facility] Comment on above: Performed By: #### L 100.0100, L500.4050, L501.5200 ####[facility] [address] [place], [address] Monocytes/100 WBC (Bld) 7.5 % Normal 0-10 [facility] Comment on above: Performed By: #### L 100.0100, L500.4050, L501.5200 ####[facility] [address] [place], [address] Neutrophils/100 WBC (Bld) 54.5 % Normal 47-70 [facility] Comment on above: Performed By: #### L 100.0100, L500.4050, L501.5200 ####[facility] [address] [place], [address] Nucleated RBC (Bld) [#/Vol] 1.2 10*3/uL Normal 0-5 [facility] Comment on above: Performed By: #### L 100.0100, L500.4050, L501.5200 ####[facility] [address] [place], [address] Platelet mean volume (Bld) [Entitic vol] 10.5 fL Normal 6.2-12.0 [facility] Comment on above: Performed By: #### L 100.0100, L500.4050, L501.5200 ####[facility] [address] [place], [address] Platelets (Bld) [#/Vol] 154 10*3/uL Normal 150-450 [facility] Comment on above: Performed By: #### L 100.0100, L500.4050, L501.5200 ####[facility] [address] [place] [place], [address] RBC (Bld) [#/Vol] 2.82 10*6/uL Low 4.2-5.4 [facility] Comment on above: Performed By: #### L 100.0100, L500.4050, L501.5200 ####[facility] [address] [place], [address] RDW SD 62.4 fl High 35.1-43.9 [facility] Comment on above: Performed By: #### L 100.0100, L500.4050, L501.5200 ####[facility] [address] [place], [address] WBC (Bld) [#/Vol] 3.3 10*3/uL Low 4.4-11.0 [facility] Comment on above: Performed By: #### L 100.0100, L500.4050, L501.5200 ####[facility] [address] [place], [address] Carbon dioxide, total [Moles /volume] in Central venous bloodOrdered By: Imani Persaud on 06-07-2025 CO2 [Moles/Vol] 18.7 mmol/L Low 21.0-32.0 [facility] Chloride assayOrdered By: Jonatan Persaud on 06-07-2025 Chloride [Moles/Vol] 104 mmol/L 98-108 [facility] Comprehensive Metabolic Prof ilon 06-07-2025 Albumin [Mass/Vol] 3.3 g/dL Low 3.5-5.0 [facility] Comment on above: Performed By: #### L 100.0100, L500.4050, L501.5200 ####[facility] [address] [place], [address] Albumin/Globulin [Mass ratio] 1.1 {ratio} Normal 0.9-2.4 [facility] Comment on above: Performed By: #### L 100.0100, L500.4050, L501.5200 ####[facility] [address] [place], [address] ALK PHOS 92 U/L Normal 35-104 [facility] Comment on above: Performed By: #### L 100.0100, L500.4050, L501.5200 ####[facility] [address] [place], [address] ALT [Catalytic activity/Vol] 81 U/L High <=34 [facility] Comment on above: Performed By: #### L 100.0100, L500.4050, L501.5200 ####[facility] [address] [place], [address] AST [Catalytic activity/Vol] 91 U/L High <=31 [facility] Comment on above: Performed By: #### L 100.0100, L500.4050, L501.5200 ####[facility] [address] [place], [address] Bilirubin [Mass/Vol] 0.75 mg/dL Normal 0.00-1.30 [facility] Comment on above: Performed By: #### L 100.0100, L500.4050, L501.5200 ####[facility] [address] [place], [address] BUN/CRE 14.8 RATIO Normal 10-20 [facility] Comment on above: Performed By: #### L 100.0100, L500.4050, L501.5200 ####[facility] [address] [place], [address] Calcium [Mass/Vol] 9.0 mg/dL Normal 7.6-11.0 [facility] Comment on above: Performed By: #### L 100.0100, L500.4050, L501.5200 ####[facility] [address] [place], [address] Chloride [Moles/Vol] 104 mmol/L Normal 98-108 [facility] Comment on above: Performed By: #### L 100.0100, L500.4050, L501.5200 ####[facility] [address] [place], [address] CO2 [Moles/Vol] 18.7 mmol/L Low 21.0-32.0 [facility] Comment on above: Performed By: #### L 100.0100, L500.4050, L501.5200 ####[facility] [address] [place], [address] Creatinine [Mass/Vol] 0.59 mg/dL Low 0.70-1.20 [facility] Comment on above: Performed By: #### L 100.0100, L500.4050, L501.5200 ####[facility] [address] [place], [address] ECRCL 129.25 ml/min Normal 50-250 [facility] Comment on above: Performed By: #### L 100.0100, L500.4050, L501.5200 ####[facility] [address] [place], [address] GAP 13 Normal 5-15 [facility] Comment on above: Performed By: #### L 100.0100, L500.4050, L501.5200 ####[facility] [address] [place], [address] GFR/1.73 sq M.predicted among non-blacks MDRD (S/P/Bld) [Vol rate/Area] 107 mL/min/{1.73_m2} Normal >60 [facility] Comment on above: Result Comment: mL/m in/1.73m2 CKD-EPI Creatinine Equation (2020) Performed By: #### L 100.0100, L500.4050, L501.5200 ####[facility] [address] [place], [address] Globulin (S) [Mass/Vol] 3.1 g/dL Normal 2.2-4.2 [facility] Comment on above: Performed By: #### L 100.0100, L500.4050, L501.5200 ####[facility] [address] [place], [address] Glucose [Mass/Vol] 130 mg/dL High 70-99 [facility] Comment on above: Performed By: #### L 100.0100, L500.4050, L501.5200 ####[facility] [address] [place], [address] Potassium [Moles/Vol] 3.7 mmol/L Normal 3.3-5.1 [facility] Comment on above: Performed By: #### L 100.0100, L500.4050, L501.5200 ####[facility] [address] [place], [address] Sodium [Moles/Vol] 136 mmol/L Normal 133-145 [facility] Comment on above: Performed By: #### L 100.0100, L500.4050, L501.5200 ####[facility] [address] [place], [address] T PROT 6.5 g/dL Normal 5.9-8.4 [facility] Comment on above: Performed By: #### L 100.0100, L500.4050, L501.5200 ####[facility] [address] [place], [address] Urea nitrogen [Mass/Vol] 9 mg/dL Normal 4-19 [facility] Comment on above: Performed By: #### L 100.0100, L500.4050, L501.5200 ####[facility] [address] [place], [address] Eosinophil percentageOrdered By: Imani Persaud on 06-07-2025 Eosinophils/100 WBC (Bld) 0.3 % 0-5 [facility] Erythrocyte distribution wid th ratioOrdered By: Imani Persaud on 06-07-2025 Erythrocyte distribution width (RBC) [Ratio] 19.9 % High 11.6-14.6 [facility] Erythrocyte distribution wid th standard deviationOrdered By: Imani Persaud on 06-07-2025 Erythrocyte distribution width (RBC) [Ratio] 62.4 fl High 35.1-43.9 [facility] Ferritinon 06-07-2025 Ferritin [Mass/Vol] 590 ng/mL High 22-378 [facility] Comment on above: Performed By: #### L 503.6550, L506.0200 ####[facility] [address] [place], [place], [id number] Folate [Mass/volume] in Seru m or PlasmaOrdered By: Delmis Corral on 06-07-2025 Folate [Mass/Vol] 5.13 ng/mL 4.60-34.80 [facility] Comment on above: Hemolysis, Results w ill be affected, Requires Recollection. Folates,Serum (Folic Acid)on 06-07-2025 FOLATES,SERUM 5.13 ng/mL Normal 4.60-34.80 [facility] Comment on above: Order Comment: ADD O NN Result Comment: Hemo lysis, Results will be affected, Requires Recollection. Performed By: #### L 503.6550, L506.0200 ####[facility] [address] [place], [place], [id number] Glomerular filtration rate ( GFR) estimation/1.73 sq m using serum, plasma, or whole bOrdered By: Imani Persaud on 06-07-2025 GFR/1.73 sq M.predicted among non-blacks MDRD (S/P/Bld) [Vol rate/Area] 107 mL/min/{1.73_m2} >60 [facility] Comment on above: mL/min/1.73m2 CKD-EP I Creatinine Equation (2020) Hematocrit Auto (Bld) [Volum e fraction]Ordered By: Imani Persaud on 06-07-2025 Hematocrit (Bld) [Volume fraction] 24.9 % Low 37-47 [facility] Hemoglobin measurementOrdere d By: Imani Metzgeralma on 06-07-2025 Hemoglobin (Bld) [Mass/Vol] 8.3 g/dL Low 12.0-15.0 [facility] Immature granulocytes/100 WB C Auto (Bld)Ordered By: Imani Cori on 06-07-2025 Immature granulocytes/100 WBC (Bld) 1.200 % High 0.0-0.9 [facility] Comment on above: IG% - Immature Granu locytes (promyelocytes, myelocytes and metamyelocytes) > 1% indicates that a LEFT SHIFT is Present. Iron measurement (mass/mass) Ordered By: Delmis Corral on 06-07-2025 Iron (Unsp spec) [Mass/Mass] 49 ug/dL Low 50-170 [facility] Iron+Iron Binding Capacityon 06-07-2025 Iron [Mass/Vol] 49 ug/dL Low 50-170 [facility] Comment on above: Order Comment: ADD O N Performed By: #### L 503.6030, L501.9520, L501.4700, L503.0106 ####[facility] [address] [place], [address] IRON SATURATION 18.0 Normal 13-59 [facility] Comment on above: Order Comment: ADD O N Performed By: #### L 503.6030, L501.9520, L501.4700, L503.0106 ####[facility] [address] [place], [address] TIBC 266 ug/dL Normal 250-450 [facility] Comment on above: Order Comment: ADD O N Performed By: #### L 503.6030, L501.9520, L501.4700, L503.0106 ####[facility] [address] [place], [address] UIBC 217 ug/dL Low 228-428 [facility] Comment on above: Order Comment: ADD O N Performed By: #### L 503.6030, L501.9520, L501.4700, L503.0106 ####[facility] [address] [place], [place], [id number] Laboratory - Chemistry and C hemistry - challengeOrdered By: Imani Persaud on 06-07-2025 AST [Catalytic activity/Vol] 91 U/L High <32 [facility] MCV (mean corpuscular volume ) determinationOrdered By: Imani Persaud on 06-07-2025 MCV (RBC) [Entitic vol] 88.3 fL 81-99 [facility] Magnesiumon 06-07-2025 Magnesium [Mass/Vol] 2.2 mg/dL Normal 1.5-2.2 [facility] Comment on above: Performed By: #### L 100.0100, L500.4050, L501.5200 ####[facility] [address] [place], [place], [address] Magnesium measurement (mass/ volume)Ordered By: Imani Persaud on 06-07-2025 Magnesium (Unsp spec) [Mass/Vol] 2.2 mg/dL 1.5-2.2 [facility] Mean corpuscular hemoglobin (MCH) determinationOrdered By: Imani Persaud on 06-07-2025 MCH (RBC) [Entitic mass] 29.4 pg 27.0-32.0 [facility] Mean corpuscular hemoglobin concentration (MCHC) determinationOrdered By: Imani Persaud on 06-07-2025 MCHC (RBC) [Mass/Vol] 33.3 g/dL 32-36 [facility] Mean platelet volume determi nationOrdered By: Imani Persaud on 06-07-2025 Platelet mean volume (Bld) [Entitic vol] 10.5 fL 6.2-12.0 [facility] Monocyte percentageOrdered B y: Imani Persaud on 06-07-2025 Monocytes/100 WBC (Bld) 7.5 % 0-10 [facility] Neutrophil percentageOrdered By: Imani Persaud on 06-07-2025 Neutrophils/100 WBC (Bld) 54.5 % 47-70 [facility] No Panel InformationOrdered By: Delmis Corral on 06-07-2025 Unsaturated Iron Binding Capacity 217 ug/dL Low 228-428 [facility] 217 ug/dL Low 228-428 [facility] Nucleated red blood cell per centageOrdered By: Imani Persaud on 06-07-2025 Nucleated RBC/100 WBC (Bld) [Ratio] 1.2 % 0-5 [facility] Oncology Visit Reporton 05-16 Oncology Visit Report Normal [facility] Platelet countOrdered By: Jonatan Persaud on 06-07-2025 Platelets (Bld) [#/Vol] 154 10*3/uL 150-450 [facility] Potassium measurement (mass/ volume)Ordered By: Imani Persaud on 06-07-2025 Potassium (Unsp spec) [Mass/Vol] 3.7 mmol/L 3.3-5.1 [facility] RBC Auto (Bld) [#/Vol]Ordere d By: Imani Persaud on 06-07-2025 RBC (Bld) [#/Vol] 2.82 10*6/uL Low 4.2-5.4 [facility] Serum creatinine measurement (mass/volume)Ordered By: Imani Persaud on 06-07-2025 Creatinine [Mass/Vol] 0.59 mg/dL Low 0.70-1.20 [facility] Serum globulin measurementOr dered By: Imani Persaud on 06-07-2025 Globulin (S) [Mass/Vol] 3.1 g/dL 2.2-4.2 [facility] Serum glucose measurement (m ass/volume)Ordered By: Imani Persaud on 06-07-2025 Glucose [Mass/Vol] 130 mg/dL High 70-99 [facility] Serum or plasma alanine del rio otransferase (ALT) measurementOrdered By: Imani Persaud on 06-07-2025 ALT [Catalytic activity/Vol] 81 U/L High <35 [facility] Serum or plasma albumin cass urement (mass/volume)Ordered By: Imani Persaud on 06-07-2025 Albumin [Mass/Vol] 3.3 g/dL Low 3.5-5.0 [facility] Serum or plasma albumin/glob ulin mass ratioOrdered By: Imani Persaud on 06-07-2025 Albumin/Globulin [Mass ratio] 1.1 {ratio} 0.9-2.4 [facility] Serum or plasma alkaline tre sphatase measurementOrdered By: Imani Persaud on 06-07-2025 ALP [Catalytic activity/Vol] 92 U/L 35-104 [facility] Serum or plasma calcium cass urement (mass/volume)Ordered By: Imani Persaud on 06-07-2025 Calcium [Mass/Vol] 9.0 mg/dL 7.6-11.0 [facility] Serum or plasma ferritin roxana surement (mass/volume)Ordered By: Delmis Corral on 06-07-2025 Ferritin [Mass/Vol] 590 ng/mL High 22-378 [facility] Serum or plasma iron saturat ion measurement (mass fraction)Ordered By: Delmis Corral on 06-07-2025 Iron saturation [Mass fraction] 18.0 % 13-59 [facility] Serum or plasma urea nitroge n measurement (mass/volume)Ordered By: Imani Persaud on 06-07-2025 Urea nitrogen [Mass/Vol] 9 mg/dL 4-19 [facility] Sodium levelOrdered By: Jennifer Persaud on 06-07-2025 Sodium [Moles/Vol] 136 mmol/L 133-145 [facility] TSH DL <= 0.005 mIU/L QnOrde red By: Delmis Corral on 06-07-2025 TSH Qn 3.100 uIU/mL 0.300-4.200 [facility] Thyroid Stim Hormone (TSH)on 06-07-2025 TSH 3.100 uIU/mL Normal 0.300-4.200 [facility] Comment on above: Order Comment: ADD O N Performed By: #### L 503.6086, L501.9539, L501.4700, L503.0106 ####[facility] [address] [place], [place], [id number] Total proteinOrdered By: Lonnie Persaud on 06-07-2025 Protein [Mass/Vol] 6.5 g/dL 5.9-8.4 [facility] Vitamin B12on 06-07-2025 Cobalamin (Vitamin B12) [Mass/Vol] 1700 pg/mL High 180-914 [facility] Comment on above: Order Comment: ADD O N Performed By: #### L 503.6030, L501.9520, L501.4700, L503.0106 ####[facility] [address] [place], [address] Vitamin B12 ser/plasOrdered By: Delmis Corral on 06-07-2025 Cobalamin (Vitamin B12) [Mass/Vol] 1700 pg/mL High 180-914 [facility] White blood cell (WBC) count Ordered By: Imani Cori on 06-07-2025 WBC (Bld) [#/Vol] 3.3 10*3/uL Low 4.4-11.0 [facility] Absolute lymphocyte countOrd ered By: Imani Cori on 05-31-2025 Lymphocytes Auto (Unsp spec) [#/Vol] 1.15 10*3/uL 0.83-4.51 [facility] Absolute neutrophil countOrd ered By: Imani Cori on 05-31-2025 Neutrophils (Bld) [#/Vol] 4.6 10*3/uL 2.0-7.7 [facility] Anion gap in Serum or Plasma Ordered By: Imani Cori on 05-31-2025 Anion gap [Moles/Vol] 13 mmol/L 5-15 [facility] Automated lymphocyte count a s percentage of total leukocytesOrdered By: Imani Persaud on 05-31-2025 Lymphocytes/100 WBC Auto (Unsp spec) 17.7 % Low 19-41 [facility] BUN/creatinine ratioOrdered By: Jenniferira Persaud on 05-31-2025 Urea nitrogen/Creatinine [Mass ratio] 9.8 mg/mg Low 10-20 [facility] Basophil percentageOrdered B y: Imani Persaud on 05-31-2025 Basophils/100 WBC (Bld) 0.6 % 0-1 [facility] Bilirubin, totalOrdered By: Imani Persaud on 05-31-2025 Bilirubin [Mass/Vol] 0.64 mg/dL 0.00-1.30 [facility] CBC W/Diff, Automatedon 05-15 Anisocytosis Ql (Bld) 1+ Normal [facility] Comment on above: Performed By: #### L 501.5200, L100.0100, L500.4050 ####[facility] [address] [place], [address] Carbon dioxide, total [Moles /volume] in Central venous bloodOrdered By: Imani Persaud on 05-31-2025 CO2 [Moles/Vol] 20.0 mmol/L Low 21.0-32.0 [facility] Chloride assayOrdered By: Jonatan Persaud on 05-31-2025 Chloride [Moles/Vol] 107 mmol/L 98-108 [facility] Comprehensive Metabolic Prof ilon 05-31-2025 Albumin [Mass/Vol] 3.4 g/dL Low 3.5-5.0 [facility] Comment on above: Performed By: #### L 501.5200, L100.0100, L500.4050 ####[facility] [address] [place], [address] Albumin/Globulin [Mass ratio] 1.1 {ratio} Normal 0.9-2.4 [facility] Comment on above: Performed By: #### L 501.5200, L100.0100, L500.4050 ####[facility] [address] [place], [address] ALK PHOS 101 U/L Normal 35-104 [facility] Comment on above: Performed By: #### L 501.5200, L100.0100, L500.4050 ####[facility] [address] [place], [address] ALT [Catalytic activity/Vol] 33 U/L Normal <=34 [facility] Comment on above: Performed By: #### L 501.5200, L100.0100, L500.4050 ####[facility] [address] [place], [address] AST [Catalytic activity/Vol] 33 U/L High <=31 [facility] Comment on above: Performed By: #### L 501.5200, L100.0100, L500.4050 ####[facility] [address] [place], [address] Bilirubin [Mass/Vol] 0.64 mg/dL Normal 0.00-1.30 [facility] Comment on above: Performed By: #### L 501.5200, L100.0100, L500.4050 ####[facility] [address] [place], [address] BUN/CRE 9.8 RATIO Low 10-20 [facility] Comment on above: Performed By: #### L 501.5200, L100.0100, L500.4050 ####[facility] [address] [place], [address] Calcium [Mass/Vol] 8.7 mg/dL Normal 7.6-11.0 [facility] Comment on above: Performed By: #### L 501.5200, L100.0100, L500.4050 ####[facility] [address] [place], [address] Chloride [Moles/Vol] 107 mmol/L Normal 98-108 [facility] Comment on above: Performed By: #### L 501.5200, L100.0100, L500.4050 ####[facility] [address] [place], [address] CO2 [Moles/Vol] 20.0 mmol/L Low 21.0-32.0 [facility] Comment on above: Performed By: #### L 501.5200, L100.0100, L500.4050 ####[facility] [address] [place], [address] Creatinine [Mass/Vol] 0.75 mg/dL Normal 0.70-1.20 [facility] Comment on above: Performed By: #### L 501.5200, L100.0100, L500.4050 ####[facility] [address] [place], [address] ECRCL 102.10 ml/min Normal 50-250 [facility] Comment on above: Performed By: #### L 501.5200, L100.0100, L500.4050 ####[facility] [address] [place], [address] GAP 13 Normal 5-15 [facility] Comment on above: Performed By: #### L 501.5200, L100.0100, L500.4050 ####[facility] [address] [place], [address] GFR/1.73 sq M.predicted among non-blacks MDRD (S/P/Bld) [Vol rate/Area] 95 mL/min/{1.73_m2} Normal >60 [facility] Comment on above: Result Comment: mL/m in/1.73m2 CKD-EPI Creatinine Equation (2020) Performed By: #### L 501.5200, L100.0100, L500.4050 ####[facility] [address] [place], [address] Globulin (S) [Mass/Vol] 3.0 g/dL Normal 2.2-4.2 [facility] Comment on above: Performed By: #### L 501.5200, L100.0100, L500.4050 ####[facility] [address] [place], [address] Glucose [Mass/Vol] 121 mg/dL High 70-99 [facility] Comment on above: Performed By: #### L 501.5200, L100.0100, L500.4050 ####[facility] [address] [place], [address] Potassium [Moles/Vol] 3.2 mmol/L Low 3.3-5.1 [facility] Comment on above: Performed By: #### L 501.5200, L100.0100, L500.4050 ####[facility] [address] [place], [address] Sodium [Moles/Vol] 140 mmol/L Normal 133-145 [facility] Comment on above: Performed By: #### L 501.5200, L100.0100, L500.4050 ####[facility] [address] [place], [address] T PROT 6.4 g/dL Normal 5.9-8.4 [facility] Comment on above: Performed By: #### L 501.5200, L100.0100, L500.4050 ####[facility] [address] [place], [address] Urea nitrogen [Mass/Vol] 7 mg/dL Normal 4-19 [facility] Comment on above: Performed By: #### L 501.5200, L100.0100, L500.4050 ####[facility] [address] [place], [address] Eosinophil percentageOrdered By: Imani Persaud on 05-31-2025 Eosinophils/100 WBC (Bld) 1.7 % 0-5 [facility] Erythrocyte distribution wid th ratioOrdered By: Imani Persaud on 05-31-2025 Erythrocyte distribution width (RBC) [Ratio] 21.6 % High 11.6-14.6 [facility] Erythrocyte distribution wid th standard deviationOrdered By: Imani Persaud on 05-31-2025 Erythrocyte distribution width (RBC) [Ratio] 48.8 fl High 35.1-43.9 [facility] Glomerular filtration rate ( GFR) estimation/1.73 sq m using serum, plasma, or whole bOrdered By: [facility] Systemira Persaud on 05-31-2025 GFR/1.73 sq M.predicted among non-blacks MDRD (S/P/Bld) [Vol rate/Area] 95 mL/min/{1.73_m2} >60 [facility] Comment on above: mL/min/1.73m2 CKD-EP I Creatinine Equation (2020) Hematocrit Auto (Bld) [Volum e fraction]Ordered By: [facility] Systemira Persaud on 05-31-2025 Hematocrit (Bld) [Volume fraction] 28.9 % Low 37-47 [facility] Hemoglobin measurementOrdere d By: [facility] Systemira Persaud on 05-31-2025 Hemoglobin (Bld) [Mass/Vol] 9.7 g/dL Low 12.0-15.0 [facility] Immature granulocytes/100 WB C Auto (Bld)Ordered By: [facility]ira [facility] on 05-31-2025 Immature granulocytes/100 WBC (Bld) 2.500 % High 0.0-0.9 [facility] Comment on above: IG% - Immature Granu locytes (promyelocytes, myelocytes and metamyelocytes) > 1% indicates that a LEFT SHIFT is Present. Laboratory - Chemistry and C hemistry - challengeOrdered By: [facility] Systemira Persaud on 05-31-2025 AST [Catalytic activity/Vol] 33 U/L High <32 [facility] Laboratory - Hematology and Cell countsOrdered By: [facility] on 05-31-2025 Anisocytosis Ql (Bld) 1+ [facility] MCV (mean corpuscular volume ) determinationOrdered By: [facility] on 05-31-2025 MCV (RBC) [Entitic vol] 88.4 fL 81-99 [facility] Magnesiumon 05-31-2025 Magnesium [Mass/Vol] 2.4 mg/dL High 1.5-2.2 [facility] Comment on above: Performed By: #### L 501.5200, L100.0100, L500.4050 ####[facility] [address] [place], [place], [id number] Magnesium measurement (mass/ volume)Ordered By: Imani Persaud on 05-31-2025 Magnesium (Unsp spec) [Mass/Vol] 2.4 mg/dL High 1.5-2.2 [facility] Mean corpuscular hemoglobin (MCH) determinationOrdered By: Imani Persaud on 05-31-2025 MCH (RBC) [Entitic mass] 29.7 pg 27.0-32.0 [facility] Mean corpuscular hemoglobin concentration (MCHC) determinationOrdered By: Imani Persaud on 05-31-2025 MCHC (RBC) [Mass/Vol] 33.6 g/dL 32-36 [facility] Mean platelet volume determi nationOrdered By: Imani Persaud on 05-31-2025 Platelet mean volume (Bld) [Entitic vol] 10.2 fL 6.2-12.0 [facility] Monocyte percentageOrdered B y: Imani Persaud on 05-31-2025 Monocytes/100 WBC (Bld) 7.5 % 0-10 [facility] Neutrophil percentageOrdered By: [facility] Persaud on 05-31-2025 Neutrophils/100 WBC (Bld) 70.0 % 47-70 [facility] Nucleated red blood cell per centageOrdered By: Jenniferira Persaud on 05-31-2025 Nucleated RBC/100 WBC (Bld) [Ratio] 0.9 % 0-5 [facility] Oncology Visit Reporton 05-15 Oncology Visit Report Normal [facility] Phosphoruson 05-31-2025 Phosphate [Mass/Vol] 2.9 mg/dL Normal 2.7-4.5 [facility] Comment on above: Performed By: #### L 501.2300 ####[facility] [address] [place], [place], [id number] Platelet countOrdered By: Jonatan Persaud on 05-31-2025 Platelets (Bld) [#/Vol] 233 10*3/uL 150-450 [facility] Potassium measurement (mass/ volume)Ordered By: Imani Persaud on 05-31-2025 Potassium (Unsp spec) [Mass/Vol] 3.2 mmol/L Low 3.3-5.1 [facility] RBC Auto (Bld) [#/Vol]Ordere d By: Imani Persaud on 05-31-2025 RBC (Bld) [#/Vol] 3.27 10*6/uL Low 4.2-5.4 [facility] Serum creatinine measurement (mass/volume)Ordered By: Imani Persaud on 05-31-2025 Creatinine [Mass/Vol] 0.75 mg/dL 0.70-1.20 [facility] Serum globulin measurementOr dered By: Imani Persaud on 05-31-2025 Globulin (S) [Mass/Vol] 3.0 g/dL 2.2-4.2 [facility] Serum glucose measurement (m ass/volume)Ordered By: Imani Persaud on 05-31-2025 Glucose [Mass/Vol] 121 mg/dL High 70-99 [facility] Serum or plasma alanine del rio otransferase (ALT) measurementOrdered By: Imani Persaud on 05-31-2025 ALT [Catalytic activity/Vol] 33 U/L <35 [facility] Serum or plasma albumin cass urement (mass/volume)Ordered By: Imani Persaud on 05-31-2025 Albumin [Mass/Vol] 3.4 g/dL Low 3.5-5.0 [facility] Serum or plasma albumin/glob ulin mass ratioOrdered By: Imani Persaud on 05-31-2025 Albumin/Globulin [Mass ratio] 1.1 {ratio} 0.9-2.4 [facility] Serum or plasma alkaline tre sphatase measurementOrdered By: Imani Persaud on 05-31-2025 ALP [Catalytic activity/Vol] 101 U/L 35-104 [facility] Serum or plasma calcium cass urement (mass/volume)Ordered By: Imani Persaud on 05-31-2025 Calcium [Mass/Vol] 8.7 mg/dL 7.6-11.0 [facility] Serum or plasma urea nitroge n measurement (mass/volume)Ordered By: Imani Persaud on 07-17-2025 Urea nitrogen [Mass/Vol] 7 mg/dL 4-19 [facility] Sodium levelOrdered By: Jennifer roth Cori on 05-31-2025 Sodium [Moles/Vol] 140 mmol/L 133-145 [facility] Total proteinOrdered By: Lonnie mcgraw Cori on 05-31-2025 Protein [Mass/Vol] 6.4 g/dL 5.9-8.4 [facility] White blood cell (WBC) count Ordered By: Imani Cori on 05-31-2025 WBC (Bld) [#/Vol] 6.5 10*3/uL 4.4-11.0 [facility] CBC W/Diff, Automatedon 05-15 PATH REV Reviewed Normal [facility] Comment on above: Result Comment: SEE REPORT IN PATIENT'S EMR AMENDED REPORT 05/28/25 [id number] PATH REV previously reported as: May foll Performed By: #### L 501.5200, L500.4050, L100.0100, L501.2300 ####[facility] [address] [place], [place], [id number] CBC W/Diff, Automatedon PATH REV Reviewed Normal [facility] Comment on above: Result Comment: SEE REPORT IN PATIENT'S EMR AMENDED REPORT 05/23/25 5071 PATH REV previously reported as: May foll Performed By: #### L 500.2500, L501.2300, L100.0100, L501.5200 ####[facility] [address] [place], [place], [address] Absolute lymphocyte countOrd ered By: Jenniferira Persaud on 05-17-2025 Lymphocytes Auto (Unsp spec) [#/Vol] 0.85 10*3/uL 0.83-4.51 [facility] Absolute neutrophil countOrd ered By: Imani Persaud on 05-17-2025 Neutrophils (Bld) [#/Vol] 0.9 10*3/uL Low 2.0-7.7 [facility] Anion gap in Serum or Plasma Ordered By: Imani Persaud on 05-17-2025 Anion gap [Moles/Vol] 10 mmol/L 5-15 [facility] Automated lymphocyte count a s percentage of total leukocytesOrdered By: Imani Cori on 05-17-2025 Lymphocytes/100 WBC Auto (Unsp spec) 41.7 % High 19-41 [facility] BUN/creatinine ratioOrdered By: Jenniferira Persaud on 05-17-2025 Urea nitrogen/Creatinine [Mass ratio] 12.5 mg/mg 10-20 [facility] Basophil percentageOrdered B y: Imani Persaud on 05-17-2025 Basophils/100 WBC (Bld) 3.9 % High 0-1 [facility] Bilirubin, totalOrdered By: Imani Persaud on 05-17-2025 Bilirubin [Mass/Vol] 0.76 mg/dL 0.00-1.30 [facility] Blood manual differential co mment interpretation (narrative result)Ordered By: Imani Persaud on 05-17-2025 Manual differential comment Bassam (Bld) [Interp] SCANNED [facility] CBC W/Diff, Automatedon ATYPICAL LYMPH 1+ Normal [facility] Comment on above: Performed By: #### L 500.4050, L501.5200, L100.0100 ####[facility] [address] [place], [place], [id number] SMEAR COMMENT SCANNED Normal [facility] Comment on above: Performed By: #### L 500.4050, L501.5200, L100.0100 ####[facility] [address] [place], [place], [id number] Carbon dioxide, total [Moles /volume] in Central venous bloodOrdered By: Imani Persaud on 05-17-2025 CO2 [Moles/Vol] 20.8 mmol/L Low 21.0-32.0 [facility] Chloride assayOrdered By: Jonatan Persaud on 05-17-2025 Chloride [Moles/Vol] 105 mmol/L 98-108 [facility] Comprehensive Metabolic Prof ilon 05-17-2025 Albumin [Mass/Vol] 3.4 g/dL Low 3.5-5.0 [facility] Comment on above: Performed By: #### L 500.4050, L501.5200, L100.0100 ####[facility] [address] [place], [address] Albumin/Globulin [Mass ratio] 1.0 {ratio} Normal 0.9-2.4 [facility] Comment on above: Performed By: #### L 500.4050, L501.5200, L100.0100 ####[facility] [address] [place], [address] ALK PHOS 97 U/L Normal 35-104 [facility] Comment on above: Performed By: #### L 500.4050, L501.5200, L100.0100 ####[facility] [address] [place], [address] ALT [Catalytic activity/Vol] 70 U/L High <=34 [facility] Comment on above: Performed By: #### L 500.4050, L501.5200, L100.0100 ####[facility] [address] [place], [address] AST [Catalytic activity/Vol] 47 U/L High <=31 [facility] Comment on above: Performed By: #### L 500.4050, L501.5200, L100.0100 ####[facility] [address] [place], [address] Bilirubin [Mass/Vol] 0.76 mg/dL Normal 0.00-1.30 [facility] Comment on above: Performed By: #### L 500.4050, L501.5200, L100.0100 ####[facility] [address] [place], [address] BUN/CRE 12.5 RATIO Normal 10-20 [facility] Comment on above: Performed By: #### L 500.4050, L501.5200, L100.0100 ####[facility] [address] [place], [address] Calcium [Mass/Vol] 8.8 mg/dL Normal 7.6-11.0 [facility] Comment on above: Performed By: #### L 500.4050, L501.5200, L100.0100 ####[facility] [address] [place], [address] Chloride [Moles/Vol] 105 mmol/L Normal 98-108 [facility] Comment on above: Performed By: #### L 500.4050, L501.5200, L100.0100 ####[facility] [address] [place], [address] CO2 [Moles/Vol] 20.8 mmol/L Low 21.0-32.0 [facility] Comment on above: Performed By: #### L 500.4050, L501.5200, L100.0100 ####[facility] [address] [place], [address] Creatinine [Mass/Vol] 0.66 mg/dL Low 0.70-1.20 [facility] Comment on above: Performed By: #### L 500.4050, L501.5200, L100.0100 ####[facility] [address] [place], [address] ECRCL 116.74 ml/min Normal 50-250 [facility] Comment on above: Performed By: #### L 500.4050, L501.5200, L100.0100 ####[facility] [address] [place], [address] GAP 10 Normal 5-15 [facility] Comment on above: Performed By: #### L 500.4050, L501.5200, L100.0100 ####[facility] [address] [place], [address] GFR/1.73 sq M.predicted among non-blacks MDRD (S/P/Bld) [Vol rate/Area] 104 mL/min/{1.73_m2} Normal >60 [facility] Comment on above: Result Comment: mL/m in/1.73m2 CKD-EPI Creatinine Equation (2020) Performed By: #### L 500.4050, L501.5200, L100.0100 ####[facility] [address] [place], [address] Globulin (S) [Mass/Vol] 3.5 g/dL Normal 2.2-4.2 [facility] Comment on above: Performed By: #### L 500.4050, L501.5200, L100.0100 ####[facility] [address] [place], [address] Glucose [Mass/Vol] 123 mg/dL High 70-99 [facility] Comment on above: Performed By: #### L 500.4050, L501.5200, L100.0100 ####[facility] [address] [place], [address] Potassium [Moles/Vol] 4.1 mmol/L Normal 3.3-5.1 [facility] Comment on above: Performed By: #### L 500.4050, L501.5200, L100.0100 ####[facility] [address] [place], [address] Sodium [Moles/Vol] 136 mmol/L Normal 133-145 [facility] Comment on above: Performed By: #### L 500.4050, L501.5200, L100.0100 ####[facility] [address] [place], [address] T PROT 6.9 g/dL Normal 5.9-8.4 [facility] Comment on above: Performed By: #### L 500.4050, L501.5200, L100.0100 ####[facility] [address] [place], [place], [address] Urea nitrogen [Mass/Vol] 8 mg/dL Normal 4-19 [facility] Comment on above: Performed By: #### L 500.4050, L501.5200, L100.0100 ####[facility] [address] [place], [address] Eosinophil percentageOrdered By: Imani Persaud on 05-17-2025 Eosinophils/100 WBC (Bld) 1.0 % 0-5 [facility] Erythrocyte distribution wid th ratioOrdered By: [facility] Persaud on 05-17-2025 Erythrocyte distribution width (RBC) [Ratio] 14.4 % 11.6-14.6 [facility] Erythrocyte distribution wid th standard deviationOrdered By: Imani Persaud on 05-17-2025 Erythrocyte distribution width (RBC) [Ratio] 41.2 fl 35.1-43.9 [facility] Glomerular filtration rate ( GFR) estimation/1.73 sq m using serum, plasma, or whole bOrdered By: Imani Persaud on 05-17-2025 GFR/1.73 sq M.predicted among non-blacks MDRD (S/P/Bld) [Vol rate/Area] 104 mL/min/{1.73_m2} >60 [facility] Comment on above: mL/min/1.73m2 CKD-EP I Creatinine Equation (2020) Hematocrit Auto (Bld) [Volum e fraction]Ordered By: Imani Persaud on 05-17-2025 Hematocrit (Bld) [Volume fraction] 29.8 % Low 37-47 [facility] Hemoglobin measurementOrdere d By: Imani Persaud on 05-17-2025 Hemoglobin (Bld) [Mass/Vol] 10.4 g/dL Low 12.0-15.0 [facility] Immature granulocytes/100 WB C Auto (Bld)Ordered By: Imani Persaud on 05-17-2025 Immature granulocytes/100 WBC (Bld) 0.500 % 0.0-0.9 [facility] Comment on above: IG% - Immature Granu locytes (promyelocytes, myelocytes and metamyelocytes) > 1% indicates that a LEFT SHIFT is Present. Laboratory - Chemistry and C hemistry - challengeOrdered By: Imani Persaud on 05-17-2025 AST [Catalytic activity/Vol] 47 U/L High <32 [facility] MCV (mean corpuscular volume ) determinationOrdered By: Imani Persaud on 05-17-2025 MCV (RBC) [Entitic vol] 83.2 fL 81-99 [facility] Magnesiumon 05-17-2025 Magnesium [Mass/Vol] 2.3 mg/dL High 1.5-2.2 [facility] Comment on above: Performed By: #### L 500.4050, L501.5200, L100.0100 ####[facility] [address] [place], [address] Magnesium measurement (mass/ volume)Ordered By: Imani Persaud on 05-17-2025 Magnesium (Unsp spec) [Mass/Vol] 2.3 mg/dL High 1.5-2.2 [facility] Mean corpuscular hemoglobin (MCH) determinationOrdered By: Imani Persaud on 05-17-2025 MCH (RBC) [Entitic mass] 29.1 pg 27.0-32.0 [facility] Mean corpuscular hemoglobin concentration (MCHC) determinationOrdered By: Imani Persaud on 05-17-2025 MCHC (RBC) [Mass/Vol] 34.9 g/dL 32-36 [facility] Mean platelet volume determi nationOrdered By: [facility] Persaud on 05-17-2025 Platelet mean volume (Bld) [Entitic vol] 9.7 fL 6.2-12.0 [facility] Monocyte percentageOrdered B y: Imani Persaud on 05-17-2025 Monocytes/100 WBC (Bld) 8.8 % 0-10 [facility] Neutrophil percentageOrdered By: Imani Persaud on 05-17-2025 Neutrophils/100 WBC (Bld) 44.1 % Low 47-70 [facility] Nucleated red blood cell per centageOrdered By: Imani Persaud on 05-17-2025 Nucleated RBC/100 WBC (Bld) [Ratio] 1.0 % 0-5 [facility] Oncology Visit Reporton 07-0 Oncology Visit Report Normal [facility] Phosphoruson 05-17-2025 Phosphate [Mass/Vol] 3.3 mg/dL Normal 2.7-4.5 [facility] Comment on above: Performed By: #### L 501.2300 ####[facility] [address] [place], [address] Platelet countOrdered By: Jonatan Persaud on 05-17-2025 Platelets (Bld) [#/Vol] 210 10*3/uL 150-450 [facility] Potassium measurement (mass/ volume)Ordered By: Imani Persaud on 05-17-2025 Potassium (Unsp spec) [Mass/Vol] 4.1 mmol/L 3.3-5.1 [facility] RBC Auto (Bld) [#/Vol]Ordere d By: Imani Persaud on 05-17-2025 RBC (Bld) [#/Vol] 3.58 10*6/uL Low 4.2-5.4 [facility] Serum creatinine measurement (mass/volume)Ordered By: Imani Persaud on 05-17-2025 Creatinine [Mass/Vol] 0.66 mg/dL Low 0.70-1.20 [facility] Serum globulin measurementOr dered By: Imani Persaud on 05-17-2025 Globulin (S) [Mass/Vol] 3.5 g/dL 2.2-4.2 [facility] Serum glucose measurement (m ass/volume)Ordered By: Imani Persaud on 05-17-2025 Glucose [Mass/Vol] 123 mg/dL High 70-99 [facility] Serum or plasma alanine del rio otransferase (ALT) measurementOrdered By: Imani Persaud on 05-17-2025 ALT [Catalytic activity/Vol] 70 U/L High <35 [facility] Serum or plasma albumin cass urement (mass/volume)Ordered By: Imani Persaud on 05-17-2025 Albumin [Mass/Vol] 3.4 g/dL Low 3.5-5.0 [facility] Serum or plasma albumin/glob ulin mass ratioOrdered By: Imani Persaud on 05-17-2025 Albumin/Globulin [Mass ratio] 1.0 {ratio} 0.9-2.4 [facility] Serum or plasma alkaline tre sphatase measurementOrdered By: Imani Persaud on 05-17-2025 ALP [Catalytic activity/Vol] 97 U/L 35-104 [facility] Serum or plasma calcium cass urement (mass/volume)Ordered By: Imani Persaud on 05-17-2025 Calcium [Mass/Vol] 8.8 mg/dL 7.6-11.0 [facility] Serum or plasma urea nitroge n measurement (mass/volume)Ordered By: Imani Persaud on 05-17-2025 Urea nitrogen [Mass/Vol] 8 mg/dL 4-19 [facility] Sodium levelOrdered By: Jennifer Persaud on 05-17-2025 Sodium [Moles/Vol] 136 mmol/L 133-145 [facility] Total proteinOrdered By: Lonnie Persaud on 05-17-2025 Protein [Mass/Vol] 6.9 g/dL 5.9-8.4 [facility] White blood cell (WBC) count Ordered By: Imani Persaud on 05-17-2025 WBC (Bld) [#/Vol] 2.0 10*3/uL Low 4.4-11.0 [facility] Absolute lymphocyte countOrd ered By: Imani Persaud on 05-10-2025 Lymphocytes Auto (Unsp spec) [#/Vol] 2.04 10*3/uL 0.83-4.51 [facility] Absolute neutrophil countOrd ered By: Imani Persaud on 05-10-2025 Neutrophils (Bld) [#/Vol] 2.4 10*3/uL 2.0-7.7 [facility] Anion gap in Serum or Plasma Ordered By: Imani Persaud on 05-10-2025 Anion gap [Moles/Vol] 14 mmol/L 5-15 [facility] BUN/creatinine ratioOrdered By: [facility] Persaud on 05-10-2025 Urea nitrogen/Creatinine [Mass ratio] 13.5 mg/mg 10-20 [facility] Bilirubin, totalOrdered By: Imani Persaud on 05-10-2025 Bilirubin [Mass/Vol] 0.37 mg/dL 0.00-1.30 [facility] Blood band neutrophil count as percentage of total leukocytesOrdered By: Imani Persaud on 05-10-2025 Band form neutrophils/100 WBC (Bld) 3 % 0-5 [facility] Blood lymphocytes/100 leukoc ytesOrdered By: [facility] Cori on 05-10-2025 Lymphocytes/100 WBC (Bld) 42 % High 19-41 [facility] Blood metamyelocytes/100 [place] kocytesOrdered By: [facility] Persaud on 05-10-2025 Metamyelocytes/100 WBC (Bld) 5 % High 0-1 [facility] Blood monocytes/100 leukocyt esOrdered By: [facility] Cori on 05-10-2025 Monocytes/100 WBC (Bld) 3 % 0-10 [facility] Blood segmented neutrophils/ 100 leukocytesOrdered By: [facility] Cori on 05-10-2025 Segmented neutrophils/100 WBC (Bld) 47 % 47-70 [facility] Carbon dioxide, total [Moles /volume] in Central venous bloodOrdered By: [facility] Persaud on 05-10-2025 CO2 [Moles/Vol] 21.6 mmol/L 21.0-32.0 [facility] Chloride assayOrdered By: Jonatan Persaud on 05-10-2025 Chloride [Moles/Vol] 105 mmol/L 98-108 [facility] Comprehensive Metabolic Prof ilon 05-10-2025 Albumin [Mass/Vol] 3.4 g/dL Low 3.5-5.0 [facility] Comment on above: Performed By: #### L 501.5200, L500.4050, L100.0100, L501.2300 ####[facility] [address] [place], [place], [id number] Albumin/Globulin [Mass ratio] 1.1 {ratio} Normal 0.9-2.4 [facility] Comment on above: Performed By: #### L 501.5200, L500.4050, L100.0100, L501.2300 ####[facility] [address] [place], [address] ALK PHOS 90 U/L Normal 35-104 [facility] Comment on above: Performed By: #### L 501.5200, L500.4050, L100.0100, L501.2300 ####[facility] [address] [place], [address] ALT [Catalytic activity/Vol] 29 U/L Normal <=34 [facility] Comment on above: Performed By: #### L 501.5200, L500.4050, L100.0100, L501.2300 ####[facility] [address] [place], [address] AST [Catalytic activity/Vol] 25 U/L Normal <=31 [facility] Comment on above: Performed By: #### L 501.5200, L500.4050, L100.0100, L501.2300 ####[facility] [address] [place], [address] Bilirubin [Mass/Vol] 0.37 mg/dL Normal 0.00-1.30 [facility] Comment on above: Performed By: #### L 501.5200, L500.4050, L100.0100, L501.2300 ####[facility] [address] [place], [address] BUN/CRE 13.5 RATIO Normal 10-20 [facility] Comment on above: Performed By: #### L 501.5200, L500.4050, L100.0100, L501.2300 ####[facility] [address] [place], [address] Calcium [Mass/Vol] 8.8 mg/dL Normal 7.6-11.0 [facility] Comment on above: Performed By: #### L 501.5200, L500.4050, L100.0100, L501.2300 ####[facility] [address] [place], [address] Chloride [Moles/Vol] 105 mmol/L Normal 98-108 [facility] Comment on above: Performed By: #### L 501.5200, L500.4050, L100.0100, L501.2300 ####[facility] [address] [place], [address] CO2 [Moles/Vol] 21.6 mmol/L Normal 21.0-32.0 [facility] Comment on above: Performed By: #### L 501.5200, L500.4050, L100.0100, L501.2300 ####[facility] [address] [place], [address] Creatinine [Mass/Vol] 0.66 mg/dL Low 0.70-1.20 [facility] Comment on above: Performed By: #### L 501.5200, L500.4050, L100.0100, L501.2300 ####[facility] [address] [place], [address] ECRCL 116.58 ml/min Normal 50-250 [facility] Comment on above: Performed By: #### L 501.5200, L500.4050, L100.0100, L501.2300 ####[facility] [address] [place], [address] GAP 14 Normal 5-15 [facility] Comment on above: Performed By: #### L 501.5200, L500.4050, L100.0100, L501.2300 ####[facility] [address] [place], [address] GFR/1.73 sq M.predicted among non-blacks MDRD (S/P/Bld) [Vol rate/Area] 104 mL/min/{1.73_m2} Normal >60 [facility] Comment on above: Result Comment: mL/m in/1.73m2 CKD-EPI Creatinine Equation (2020) Performed By: #### L 501.5200, L500.4050, L100.0100, L501.2300 ####[facility] [address] [place], [address] Globulin (S) [Mass/Vol] 3.1 g/dL Normal 2.2-4.2 [facility] Comment on above: Performed By: #### L 501.5200, L500.4050, L100.0100, L501.2300 ####[facility] [address] [place], [address] Glucose [Mass/Vol] 139 mg/dL High 70-99 [facility] Comment on above: Performed By: #### L 501.5200, L500.4050, L100.0100, L501.2300 ####[facility] [address] [place], [address] Potassium [Moles/Vol] 3.5 mmol/L Normal 3.3-5.1 [facility] Comment on above: Performed By: #### L 501.5200, L500.4050, L100.0100, L501.2300 ####[facility] [address] [place], [address] Sodium [Moles/Vol] 140 mmol/L Normal 133-145 [facility] Comment on above: Performed By: #### L 501.5200, L500.4050, L100.0100, L501.2300 ####[facility] [address] [place], [address] T PROT 6.5 g/dL Normal 5.9-8.4 [facility] Comment on above: Performed By: #### L 501.5200, L500.4050, L100.0100, L501.2300 ####[facility] [address] [place], [address] Urea nitrogen [Mass/Vol] 9 mg/dL Normal 4-19 [facility] Comment on above: Performed By: #### L 501.5200, L500.4050, L100.0100, L501.2300 ####[facility] [address] [place], [address] Culture, Blood (WB)on 2024 CUB Blood cultures x2, f rom two different sites No growth in 5 days. Normal [facility] Comment on above: Performed By: #### M 200.1000 ####[facility] [address] [place], [address] Erythrocyte distribution wid th ratioOrdered By: Imani Persaud on 05-10-2025 Erythrocyte distribution width (RBC) [Ratio] 14.3 % 11.6-14.6 [facility] Erythrocyte distribution wid th standard deviationOrdered By: Imani Persaud on 05-10-2025 Erythrocyte distribution width (RBC) [Ratio] 39.9 fl 35.1-43.9 [facility] Erythrocyte morphology asses smentOrdered By: Imani Persaud on 05-10-2025 RBC morphology finding Nom (Bld) NORM C+C NORMAL NORM C&C [facility] Glomerular filtration rate ( GFR) estimation/1.73 sq m using serum, plasma, or whole bOrdered By: Imani Persaud on 05-10-2025 GFR/1.73 sq M.predicted among non-blacks MDRD (S/P/Bld) [Vol rate/Area] 104 mL/min/{1.73_m2} >60 [facility] Comment on above: mL/min/1.73m2 CKD-EP I Creatinine Equation (2020) Hematocrit Auto (Bld) [Volum e fraction]Ordered By: Imani Persaud on 05-10-2025 Hematocrit (Bld) [Volume fraction] 33.4 % Low 37-47 [facility] Hemoglobin measurementOrdere d By: Imani Persaud on 05-10-2025 Hemoglobin (Bld) [Mass/Vol] 11.4 g/dL Low 12.0-15.0 [facility] Laboratory - Chemistry and C hemistry - challengeOrdered By: Imani Persaud on 05-10-2025 AST [Catalytic activity/Vol] 25 U/L <32 [facility] MCV (mean corpuscular volume ) determinationOrdered By: [facility] Persaud on 05-10-2025 MCV (RBC) [Entitic vol] 84.3 fL 81-99 [facility] Magnesiumon 05-10-2025 Magnesium [Mass/Vol] 2.2 mg/dL Normal 1.5-2.2 [facility] Comment on above: Performed By: #### L 501.5200, L500.4050, L100.0100, L501.2300 ####[facility] [address] [place], [address] Magnesium measurement (mass/ volume)Ordered By: Imani Persaud on 05-10-2025 Magnesium (Unsp spec) [Mass/Vol] 2.2 mg/dL 1.5-2.2 [facility] Mean corpuscular hemoglobin (MCH) determinationOrdered By: Imani Persaud on 05-10-2025 MCH (RBC) [Entitic mass] 28.8 pg 27.0-32.0 [facility] Mean corpuscular hemoglobin concentration (MCHC) determinationOrdered By: Imani Persaud on 05-10-2025 MCHC (RBC) [Mass/Vol] 34.1 g/dL 32-36 [facility] Mean platelet volume determi nationOrdered By: Imani Persaud on 05-10-2025 Platelet mean volume (Bld) [Entitic vol] 9.4 fL 6.2-12.0 [facility] Oncology Visit Reporton 04-16 Oncology Visit Report Normal [facility] Phosphoruson 05-10-2025 Phosphate [Mass/Vol] 2.9 mg/dL Normal 2.7-4.5 [facility] Comment on above: Performed By: #### L 501.5200, L500.4050, L100.0100, L501.2300 ####[facility] [address] [place], [address] Platelet countOrdered By: Jonatan Persaud on 05-10-2025 Platelets (Bld) [#/Vol] 399 10*3/uL 150-450 [facility] Platelet estimateOrdered By: Imani Persaud on 05-10-2025 Platelets LM Ql (Bld) ADEQUATE ADEQ [facility] Potassium measurement (mass/ volume)Ordered By: Imani Persaud on 05-10-2025 Potassium (Unsp spec) [Mass/Vol] 3.5 mmol/L 3.3-5.1 [facility] RBC Auto (Bld) [#/Vol]Ordere d By: Imani Persaud on 05-10-2025 RBC (Bld) [#/Vol] 3.96 10*6/uL Low 4.2-5.4 [facility] Review by pathologistOrdered By: Imani Persaud on 05-10-2025 Pathologist review Bassam (Unsp spec) [Interp] Susan turner [facility] Pathologist review Bassam (Unsp spec) [Interp] Reviewed [facility] Comment on above: Previous reported re sult: Susan turner Edited by: SURENDRA on 05/28/25:1526SEE REPORT IN PATIENT'S EMR AMENDED REPORT 05/28/25 1526 PATH REV previously reported as: Susan turner Serum creatinine measurement (mass/volume)Ordered By: Imani Persaud on 05-10-2025 Creatinine [Mass/Vol] 0.66 mg/dL Low 0.70-1.20 [facility] Serum globulin measurementOr dered By: Imani Persaud on 05-10-2025 Globulin (S) [Mass/Vol] 3.1 g/dL 2.2-4.2 [facility] Serum glucose measurement (m ass/volume)Ordered By: Imani Persaud on 05-10-2025 Glucose [Mass/Vol] 139 mg/dL High 70-99 [facility] Serum or plasma alanine del rio otransferase (ALT) measurementOrdered By: Imani Persaud on 05-10-2025 ALT [Catalytic activity/Vol] 29 U/L <35 [facility] Serum or plasma albumin cass urement (mass/volume)Ordered By: Imani Persaud on 05-10-2025 Albumin [Mass/Vol] 3.4 g/dL Low 3.5-5.0 [facility] Serum or plasma albumin/glob ulin mass ratioOrdered By: Imani Persaud on 05-10-2025 Albumin/Globulin [Mass ratio] 1.1 {ratio} 0.9-2.4 [facility] Serum or plasma alkaline tre sphatase measurementOrdered By: Imani Persaud on 05-10-2025 ALP [Catalytic activity/Vol] 90 U/L 35-104 [facility] Serum or plasma calcium cass urement (mass/volume)Ordered By: Imani Persaud on 05-10-2025 Calcium [Mass/Vol] 8.8 mg/dL 7.6-11.0 [facility] Serum or plasma urea nitroge n measurement (mass/volume)Ordered By: Imani Persaud on 05-10-2025 Urea nitrogen [Mass/Vol] 9 mg/dL 4-19 [facility] Sodium levelOrdered By: Jennifer Persaud on 05-10-2025 Sodium [Moles/Vol] 140 mmol/L 133-145 [facility] Total cell countOrdered By: Imani Persaud on 05-10-2025 Cells counted Molgen (Bld/Tiss) [#] 100 MANUAL DIFF [facility] Total proteinOrdered By: Lonnie Persaud on 05-10-2025 Protein [Mass/Vol] 6.5 g/dL 5.9-8.4 [facility] White blood cell (WBC) count Ordered By: Imani Persaud on 05-10-2025 WBC (Bld) [#/Vol] 4.9 10*3/uL 4.4-11.0 [facility] Urine Cultureon 05-07-2025 URC #1, 2 Below infectio n level. Mixed Gram Positive Organisms [place] Count 1000-10,000 MIXC Mixed contaminants. Submit a new specimen if indicated. GPCENT [place] Count <1000 Normal [facility] Comment on above: Performed By: #### L 400.0001, M100.2200 ####[facility] [address] [place], [address] Absolute lymphocyte countOrd ered By: Radha Norman on 05-04-2025 Lymphocytes Auto (Unsp spec) [#/Vol] 0.60 10*3/uL Low 0.83-4.51 [facility] Absolute neutrophil countOrd ered By: Radha Norman on 05-04-2025 Neutrophils (Bld) [#/Vol] 0.1 10*3/uL Low 2.0-7.7 [facility] Anion gap in Serum or Plasma Ordered By: Radha Norman on 05-04-2025 Anion gap [Moles/Vol] 11 mmol/L 5-15 [facility] Automated lymphocyte count a s percentage of total leukocytesOrdered By: Radha Norman on 05-04-2025 Lymphocytes/100 WBC Auto (Unsp spec) 71.4 % High 19-41 [facility] BUN/creatinine ratioOrdered By: Radha Norman on 05-04-2025 Urea nitrogen/Creatinine [Mass ratio] 13.7 mg/mg 10-20 [facility] Basophil percentageOrdered B y: Radha Norman on 05-04-2025 Basophils/100 WBC (Bld) 2.4 % High 0-1 [facility] Bilirubin Test strip Ql (U)O rdered By: Radha Norman on 05-04-2025 Bilirubin Ql (U) 1 mg/dL High Negative [facility] Comment on above: COLOR OF URINE MAY A FFECT DIPSTICK RESULTS. Bilirubin, totalOrdered By: Radha Norman on 05-04-2025 Bilirubin [Mass/Vol] 0.62 mg/dL 0.00-1.30 [facility] Blood cultureOrdered By: Kavya Norman on 05-04-2025 Bacteria identified Cx Nom (Bld) No growth in 5 days. [facility] Blood manual differential co mment interpretation (narrative result)Ordered By: Radha Norman on 05-04-2025 Manual differential comment Bassam (Bld) [Interp] SCANNED [facility] CBC W/Diff, Automatedon 04-16 PLT EST MKD DEC Normal ADEQ [facility] Comment on above: Performed By: #### L 300.3900, L100.0100, L503.6005, L509.7001, L500.4050 ####[facility] [address] [place], [address] SMEAR COMMENT SCANNED Normal [facility] Comment on above: Performed By: #### L 300.3900, L100.0100, L503.6005, L509.7001, L500.4050 ####[facility] [address] [place], [address] Carbon dioxide, total [Moles /volume] in Central venous bloodOrdered By: Radha Norman on 05-04-2025 CO2 [Moles/Vol] 21.2 mmol/L 21.0-32.0 [facility] Chest PA and Lateralon 05-04 Chest PA and Lateral Normal [facility] Chloride assayOrdered By: Melissa Norman on 05-04-2025 Chloride [Moles/Vol] 101 mmol/L 98-108 [facility] Comprehensive Metabolic Prof ilon 05-04-2025 Albumin [Mass/Vol] 3.4 g/dL Low 3.5-5.0 [facility] Comment on above: Performed By: #### L 300.3900, L100.0100, L503.6005, L509.7001, L500.4050 ####[facility] [address] [place], [address] Albumin/Globulin [Mass ratio] 1.0 {ratio} Normal 0.9-2.4 [facility] Comment on above: Performed By: #### L 300.3900, L100.0100, L503.6005, L509.7001, L500.4050 ####[facility] [address] [place], [address] ALK PHOS 90 U/L Normal 35-104 [facility] Comment on above: Performed By: #### L 300.3900, L100.0100, L503.6005, L509.7001, L500.4050 ####[facility] [address] [place], [address] ALT [Catalytic activity/Vol] 49 U/L High <=34 [facility] Comment on above: Performed By: #### L 300.3900, L100.0100, L503.6005, L509.7001, L500.4050 ####[facility] [address] [place], [address] AST [Catalytic activity/Vol] 43 U/L High <=31 [facility] Comment on above: Performed By: #### L 300.3900, L100.0100, L503.6005, L509.7001, L500.4050 ####[facility] [address] [place], [address] Bilirubin [Mass/Vol] 0.62 mg/dL Normal 0.00-1.30 [facility] Comment on above: Performed By: #### L 300.3900, L100.0100, L503.6005, L509.7001, L500.4050 ####[facility] [address] [place], [address] BUN/CRE 13.7 RATIO Normal 10-20 [facility] Comment on above: Performed By: #### L 300.3900, L100.0100, L503.6005, L509.7001, L500.4050 ####[facility] [address] [place], [address] Calcium [Mass/Vol] 8.7 mg/dL Normal 7.6-11.0 [facility] Comment on above: Performed By: #### L 300.3900, L100.0100, L503.6005, L509.7001, L500.4050 ####[facility] [address] [place], [address] Chloride [Moles/Vol] 101 mmol/L Normal 98-108 [facility] Comment on above: Performed By: #### L 300.3900, L100.0100, L503.6005, L509.7001, L500.4050 ####[facility] [address] [place], [address] CO2 [Moles/Vol] 21.2 mmol/L Normal 21.0-32.0 [facility] Comment on above: Performed By: #### L 300.3900, L100.0100, L503.6005, L509.7001, L500.4050 ####[facility] [address] [place], [address] Creatinine [Mass/Vol] 0.59 mg/dL Low 0.70-1.20 [facility] Comment on above: Performed By: #### L 300.3900, L100.0100, L503.6005, L509.7001, L500.4050 ####[facility] [address] [place], [address] ECRCL 130.14 ml/min Normal 50-250 [facility] Comment on above: Performed By: #### L 300.3900, L100.0100, L503.6005, L509.7001, L500.4050 ####[facility] [address] [place], [address] GAP 11 Normal 5-15 [facility] Comment on above: Performed By: #### L 300.3900, L100.0100, L503.6005, L509.7001, L500.4050 ####[facility] [address] [place], [address] GFR/1.73 sq M.predicted among non-blacks MDRD (S/P/Bld) [Vol rate/Area] 107 mL/min/{1.73_m2} Normal >60 [facility] Comment on above: Result Comment: mL/m in/1.73m2 CKD-EPI Creatinine Equation (2020) Performed By: #### L 300.3900, L100.0100, L503.6005, L509.7001, L500.4050 ####[facility] [address] [place], [address] Globulin (S) [Mass/Vol] 3.4 g/dL Normal 2.2-4.2 [facility] Comment on above: Performed By: #### L 300.3900, L100.0100, L503.6005, L509.7001, L500.4050 ####[facility] [address] [place], [address] Glucose [Mass/Vol] 115 mg/dL High 70-99 [facility] Comment on above: Performed By: #### L 300.3900, L100.0100, L503.6005, L509.7001, L500.4050 ####[facility] [address] [place], [address] Potassium [Moles/Vol] 3.7 mmol/L Normal 3.3-5.1 [facility] Comment on above: Performed By: #### L 300.3900, L100.0100, L503.6005, L509.7001, L500.4050 ####[facility] [address] [place], [address] Sodium [Moles/Vol] 133 mmol/L Normal 133-145 [facility] Comment on above: Performed By: #### L 300.3900, L100.0100, L503.6005, L509.7001, L500.4050 ####[facility] [address] [place], [address] T PROT 6.7 g/dL Normal 5.9-8.4 [facility] Comment on above: Performed By: #### L 300.3900, L100.0100, L503.6005, L509.7001, L500.4050 ####[facility] [address] [place], [address] Urea nitrogen [Mass/Vol] 8 mg/dL Normal 4-19 [facility] Comment on above: Performed By: #### L 300.3900, L100.0100, L503.6005, L509.7001, L500.4050 ####[facility] [address] [place], [address] Culture, Blood (WB)on 2024 CUB No growth in 5 days. Normal [facility] Comment on above: Performed By: #### M 200.1000, L300.3900, L300.4310, L503.6005, L500.4050, L100.0100 ####[facility] [address] [place], [address] CUB No growth in 5 days. Normal [facility] Comment on above: Performed By: #### M 200.1000 ####[facility] [address] [place], [address] Emergency Department Summary on 05-04-2025 Emergency Department Summary Normal [facility] Eosinophil percentageOrdered By: Radha Norman on 05-04-2025 Eosinophils/100 WBC (Bld) 3.6 % 0-5 [facility] Erythrocyte distribution wid th ratioOrdered By: Radha Norman on 05-04-2025 Erythrocyte distribution width (RBC) [Ratio] 12.4 % 11.6-14.6 [facility] Erythrocyte distribution wid th standard deviationOrdered By: Radha Norman on 05-04-2025 Erythrocyte distribution width (RBC) [Ratio] 36.2 fl 35.1-43.9 [facility] Glomerular filtration rate ( GFR) estimation/1.73 sq m using serum, plasma, or whole bOrdered By: Radha Norman on 05-04-2025 GFR/1.73 sq M.predicted among non-blacks MDRD (S/P/Bld) [Vol rate/Area] 107 mL/min/{1.73_m2} >60 [facility] Comment on above: mL/min/1.73m2 CKD-EP I Creatinine Equation (2020) Haptoglobinon 05-04-2025 HAPTOGLOBIN 361 mg/dL High 33-346 [facility] Comment on above: Order Comment: MARIEL Angulo ADD ON Result Comment: Perf ormed at: [facility] [address] [id number] Director: Richi Vargas PhD, Phone: [phone] Performed By: #### L 504.4486, L126.4656, L3837.4720 ####[facility] [address] [place], [place], [address] Hematocrit Auto (Bld) [Volum e fraction]Ordered By: Radha Norman on 05-04-2025 Hematocrit (Bld) [Volume fraction] 30.4 % Low 37-47 [facility] Hemoglobin measurementOrdere d By: Radha Norman on 05-04-2025 Hemoglobin (Bld) [Mass/Vol] 10.7 g/dL Low 12.0-15.0 [facility] Immature granulocytes/100 WB C Auto (Bld)Ordered By: Radha Norman on 05-04-2025 Immature granulocytes/100 WBC (Bld) 4.800 % High 0.0-0.9 [facility] Comment on above: IG% - Immature Granu locytes (promyelocytes, myelocytes and metamyelocytes) > 1% indicates that a LEFT SHIFT is Present. International normalized rat io (INR) calculationOrdered By: Giirsh Mcgarry on 05-04-2025 INR Coag (Bld) [Relative time] 1.2 {INR} [facility] Ketones Test strip Ql (U)Ord ered By: Radha Norman on 05-04-2025 Ketones Ql (U) Negative Negative [facility] L509.7001on 05-04-2025 Procalcitonin 0.11 ng/mL Normal <=0.10 [facility] Comment on above: Result Comment: Inte rpretation:<0.10-0.25 ng/mL: Antibiotic therapy discouraged. Bacterialinfection unlikely.0.25-0.50 ng/mL: Antibiotic therapy encouraged. Bacterialinfection possible.>0.50 ng/mL: Antibiotic therapy strongly encouraged.Suggestive of presence of bacterial infection.PCT should always be interpreted in the clinical context ofthe patient. Therefore, clinicians should use the PCTresults in conjunction with other laboratory findings andclinical signs of the patient. Performed By: #### L 300.3900, L100.0100, L503.6005, L509.7001, L500.4050 ####[facility] [address] [place], [place], [id number] Laboratory - Chemistry and C hemistry - challengeOrdered By: Radha Norman on 05-04-2025 AST [Catalytic activity/Vol] 43 U/L High <32 [facility] Lactic Acidon 05-04-2025 Lactate [Moles/Vol] mmol/L Normal 0.0-2.0 [facility] Comment on above: Order Comment: Y Performed By: #### L 300.3900, L100.0100, L503.6005, L509.7001, L500.4050 ####[facility] [address] [place], [place], [address] Lactic acid measurementOrder ed By: Radha Norman on 05-04-2025 Lactate [Moles/Vol] mmol/L 0.0-2.0 [facility] MCV (mean corpuscular volume ) determinationOrdered By: Radha Norman on 05-04-2025 MCV (RBC) [Entitic vol] 81.1 fL 81-99 [facility] Mean corpuscular hemoglobin (MCH) determinationOrdered By: Radha Norman on 05-04-2025 MCH (RBC) [Entitic mass] 28.5 pg 27.0-32.0 [facility] Mean corpuscular hemoglobin concentration (MCHC) determinationOrdered By: Radha Norman on 05-04-2025 MCHC (RBC) [Mass/Vol] 35.2 g/dL 32-36 [facility] Mean platelet volume determi nationOrdered By: Radha Norman on 05-04-2025 Platelet mean volume (Bld) [Entitic vol] 10.9 fL 6.2-12.0 [facility] Microscopic analysis of urin e for red blood cells (RBC)Ordered By: Radha Norman on 05-04-2025 Microscopic analysis of urine for red blood cells (RBC) > 100 SEEN /hpf 0-5 [facility] Monocyte percentageOrdered B y: Radha Norman on 05-04-2025 Monocytes/100 WBC (Bld) 11.9 % High 0-10 [facility] Mucus LM Ql (Urine sed)Order ed By: Radha Norman on 05-04-2025 Mucus Ql (Urine sed) 1+ /hpf [facility] Neutrophil percentageOrdered By: Radha Norman on 05-04-2025 Neutrophils/100 WBC (Bld) 5.9 % Low 47-70 [facility] Nitrite Test strip Ql (U)Ord ered By: Radha Norman on 05-04-2025 Nitrite Ql (U) Positive High Negative [facility] No Panel InformationOrdered By: Radha Norman on 05-04-2025 43 U/L High <32 [facility] Nucleated red blood cell per centageOrdered By: Radha Norman on 05-04-2025 Nucleated RBC/100 WBC (Bld) [Ratio] 4.8 % 0-5 [facility] Platelet countOrdered By: Melissa Norman on 05-04-2025 Platelets (Bld) [#/Vol] 35 10*3/uL Critically low 150-450 [facility] Comment on above: CRITICAL VALUE HOFFMAN D TO PHILLIP MCKENZIE05/04/252006 Leia Berger.RESULTS READ BACK BY SAME. Platelet estimateOrdered By: Radha Norman on 05-04-2025 Platelets LM Ql (Bld) MKD DEC ADEQ [facility] Potassium measurement (mass/ volume)Ordered By: Radhadavid Norman on 05-04-2025 Potassium (Unsp spec) [Mass/Vol] 3.7 mmol/L 3.3-5.1 [facility] Procalcitonin [Mass/volume] in Serum or Plasma by ImmunoassayOrdered By: Radha Norman on 05-04-2025 Procalcitonin IA [Mass/Vol] 0.11 ng/mL <0.11 [facility] Comment on above: Interpretation:<0.10 -0.25 [...] Protein Ql (U) 100 mg/dl High Negative [facility] Prothrombin Time w/INRon INR Coag (PPP) [Relative time] 1.2 {INR} Normal [facility] Comment on above: Performed By: #### L 300.3900 ####[facility] [address] [place], [place], [id number] PT Coag (PPP) [Time] 15.0 s High 11.7-14.9 [facility] Comment on above: Performed By: #### L 300.3900 ####[facility] [address] [place], [place], [address] INR Normal [facility] Comment on above: Result Comment: This specimen has been REJECTED due to Laboratory criteria:Quantity Not Sufficient.PHILLIP MCKENZIE has been notified of need of recollection.05/04/252011 Leia Berger Performed By: #### L 300.3900, L100.0100, L503.6005, L509.7001, L500.4050 ####[facility] [address] [place], [address] PROTIME Normal 11.7-14.9 [facility] Comment on above: Result Comment: This specimen has been REJECTED due to Laboratory criteria:Quantity Not Sufficient.PHILLIP MCKENZIE has been notified of need of recollection.05/04/252011 Leia Berger Performed By: #### L 300.3900, L100.0100, L503.6005, L509.7001, L500.4050 ####[facility] [address] [place], [address] Prothrombin timeOrdered By: Girish Mcgarry on 05-04-2025 PT Coag (PPP) [Time] 15.0 s High 11.7-14.9 [facility] RBC Auto (Bld) [#/Vol]Ordere d By: Radha Norman on 05-04-2025 RBC (Bld) [#/Vol] 3.75 10*6/uL Low 4.2-5.4 [facility] Review by pathologistOrdered By: Radha Norman on 05-04-2025 Pathologist review Bassam (Unsp spec) [Interp] CORE MANAGER [facility] Comment on above: SENT TO PATH 05/03/25 Serum creatinine measurement (mass/volume)Ordered By: Radha Norman on 05-04-2025 Creatinine [Mass/Vol] 0.59 mg/dL Low 0.70-1.20 [facility] Serum globulin measurementOr dered By: Radha Norman on 05-04-2025 Globulin (S) [Mass/Vol] 3.4 g/dL 2.2-4.2 [facility] Serum glucose measurement (m ass/volume)Ordered By: Radha Norman on 05-04-2025 Glucose [Mass/Vol] 115 mg/dL High 70-99 [facility] Serum or plasma alanine del rio otransferase (ALT) measurementOrdered By: Radha Norman on 05-04-2025 ALT [Catalytic activity/Vol] 49 U/L High <35 [facility] Serum or plasma albumin cass urement (mass/volume)Ordered By: Radha Norman on 05-04-2025 Albumin [Mass/Vol] 3.4 g/dL Low 3.5-5.0 [facility] Serum or plasma albumin/glob ulin mass ratioOrdered By: Radha Norman on 05-04-2025 Albumin/Globulin [Mass ratio] 1.0 {ratio} 0.9-2.4 [facility] Serum or plasma alkaline tre sphatase measurementOrdered By: Radha Norman on 05-04-2025 ALP [Catalytic activity/Vol] 90 U/L 35-104 [facility] Serum or plasma calcium cass urement (mass/volume)Ordered By: Radha Norman on 05-04-2025 Calcium [Mass/Vol] 8.7 mg/dL 7.6-11.0 [facility] Serum or plasma urea nitroge n measurement (mass/volume)Ordered By: Radha Norman on 05-04-2025 Urea nitrogen [Mass/Vol] 8 mg/dL 4-19 [facility] Sodium levelOrdered By: Radha Norman on 05-04-2025 Sodium [Moles/Vol] 133 mmol/L 133-145 [facility] Squamous epithelial cells de tection in urine sediment by light microscopyOrdered By: Radha Norman on 05-04-2025 Epithelial cells.squamous LM Ql (Urine sed) 0-5 SEEN /hpf - [facility] Total proteinOrdered By: Kavya Norman on 05-04-2025 Protein [Mass/Vol] 6.7 g/dL 5.9-8.4 [facility] Transitional cells detection in urine sediment by light microscopyOrdered By: Radha Norman on 05-04-2025 Transitional cells LM Ql (Urine sed) 0-5 SEEN /hpf 0-5 [facility] Urinalysis, Completeon 05-04 BACTERIA 2+ /hpf Normal None Seen [facility] Comment on above: Order Comment: COLOR OF URINE MAY AFFECT DIPSTICK RESULTS.ATOMIC PHYSICS TEACHER TO SPECIFY Performed By: #### L 400.0001, M100.2200 ####[facility] [address] [place], [place], [id number] EPI,SQUAMOUS 0-5 SEEN Normal 5-10 [facility] Comment on above: Order Comment: COLOR OF URINE MAY AFFECT DIPSTICK RESULTS.ATOMIC PHYSICS TEACHER TO SPECIFY Performed By: #### L 400.0001, M100.2200 ####[facility] [address] [place], [address] EPI,TRANSITION 0-5 SEEN Normal 0-5 [facility] Comment on above: Order Comment: COLOR OF URINE MAY AFFECT DIPSTICK RESULTS.ATOMIC PHYSICS TEACHER TO SPECIFY Performed By: #### L 400.0001, M100.2200 ####[facility] [address] [place], [address] Mucus Ql (Urine sed) 1+ /hpf Normal [facility] Comment on above: Order Comment: COLOR OF URINE MAY AFFECT DIPSTICK RESULTS.ATOMIC PHYSICS TEACHER TO SPECIFY Performed By: #### L 400.0001, M100.0 ####[facility] [address] [place], [address] WBC 5-10 SEEN Normal 0-5 [facility] Comment on above: Order Comment: COLOR OF URINE MAY AFFECT DIPSTICK RESULTS.ATOMIC PHYSICS TEACHER TO SPECIFY Performed By: #### L 400.0001, M100.0 ####[facility] [address] [place], [address] RBC > 100 SEEN Normal 0-5 [facility] Comment on above: Order Comment: COLOR OF URINE MAY AFFECT DIPSTICK RESULTS.ATOMIC PHYSICS TEACHER TO SPECIFY Performed By: #### L 400.0001, M100.2200 ####[facility] [address] [place], [address] Urine clarityOrdered By: Kavya Norman on 05-04-2025 Clarity (U) Cloudy Clear [facility] Urine color determinationOrd ered By: Radha Norman on 05-04-2025 Color (U) Mirna Yellow [facility] Urine cultureOrdered By: Kavya Norman on 05-04-2025 Bacteria identified Cx Nom (U) Positive Abnormal [facility] Bacteria identified Cx Nom (U) GPC Poss Enterococcus sp Abnormal [facility] Urine glucose detectionOrder ed By: Radha Noramn on 05-04-2025 Glucose Ql (U) Normal mg/dl Normal [facility] Urine leukocyte esterase det ection by dipstickOrdered By: Radha Norman on 05-04-2025 Leukocyte esterase Test strip Ql (U) 25 /ul High Negative [facility] Urine pHOrdered By: Radha gonzalez on 05-04-2025 pH (U) 6.0 [pH] 5.0 - 8.0 [facility] Urine sediment bacteria coun t by microscopy (number/high power field)Ordered By: Radha Norman on 05-04-2025 Bacteria LM.HPF (Urine sed) [#/Area] 2 /[HPF] None Seen [facility] Urine specific gravity measu rementOrdered By: Radha Norman on 05-04-2025 Specific gravity (U) [Rel density] 1.015 1.002-1.030 [facility] Urine urobilinogen measureme ntOrdered By: Radha Norman on 05-04-2025 Urobilinogen Ql (U) 4 mg/dl High Normal [facility] White blood cell (WBC) count Ordered By: Radha Norman on 05-04-2025 WBC (Bld) [#/Vol] 0.8 10*3/uL Critically low 4.4-11.0 [facility] Comment on above: CRITICAL VALUE HOFFMAN D TO PHILLIP MCKENZIE05/04/252008 Leia Berger.RESULTS READ BACK BY SAME. White blood cell countOrdere d By: Radha Norman on 05-04-2025 White blood cell count 5-10 SEEN /hpf 0-5 [facility] Absolute lymphocyte countOrd ered By: Imani Persaud on 05-03-2025 Lymphocytes Auto (Unsp spec) [#/Vol] 0.40 10*3/uL Low 0.83-4.51 [facility] Absolute neutrophil countOrd ered By: Imani Persaud on 05-03-2025 Neutrophils (Bld) [#/Vol] 0.0 10*3/uL Low 2.0-7.7 [facility] Anion gap in Serum or Plasma Ordered By: Imani Persaud on 05-03-2025 Anion gap [Moles/Vol] 12 mmol/L 5-15 [facility] Automated lymphocyte count a s percentage of total leukocytesOrdered By: Imani Persaud on 05-03-2025 Lymphocytes/100 WBC Auto (Unsp spec) 80.0 % High 19-41 [facility] [id number] 05-03-2025 DIRECT SUSHMA NEG w/POLYSPECIFIC Normal NEGATIVE [facility] Comment on above: Performed By: #### B 11825-1 ####[facility] [address] [place], [address] BUN/creatinine ratioOrdered By: Imani Persaud on 05-03-2025 Urea nitrogen/Creatinine [Mass ratio] 16.5 mg/mg 09-03 [facility] Basic Metabolic Profile (BMP )on 05-03-2025 BUN/CRE 16.5 RATIO Normal 09-03 [facility] Comment on above: Performed By: #### L 500.2500, L501.2300, L100.0100, L501.5200 ####[facility] [address] [place], [address] Calcium [Mass/Vol] 8.7 mg/dL Normal 7.6-11.0 [facility] Comment on above: Performed By: #### L 500.2500, L501.2300, L100.0100, L501.5200 ####[facility] [address] [place], [address] Chloride [Moles/Vol] 101 mmol/L Normal 98-108 [facility] Comment on above: Performed By: #### L 500.2500, L501.2300, L100.0100, L501.5200 ####[facility] [address] [place], [address] CO2 [Moles/Vol] 20.0 mmol/L Low 21.0-32.0 [facility] Comment on above: Performed By: #### L 500.2500, L501.2300, L100.0100, L501.5200 ####[facility] [address] [place], [address] Creatinine [Mass/Vol] 0.59 mg/dL Low 0.70-1.20 [facility] Comment on above: Performed By: #### L 500.2500, L501.2300, L100.0100, L501.5200 ####[facility] [address] [place], [address] ECRCL 130.42 ml/min Normal 50-250 [facility] Comment on above: Performed By: #### L 500.2500, L501.2300, L100.0100, L501.5200 ####[facility] [address] [place], [address] GAP 12 Normal 5-15 [facility] Comment on above: Performed By: #### L 500.2500, L501.2300, L100.0100, L501.5200 ####[facility] [address] [place], [address] GFR/1.73 sq M.predicted among non-blacks MDRD (S/P/Bld) [Vol rate/Area] 107 mL/min/{1.73_m2} Normal >60 [facility] Comment on above: Result Comment: mL/m in/1.73m2 CKD-EPI Creatinine Equation (2020) Performed By: #### L 500.2500, L501.2300, L100.0100, L501.5200 ####[facility] [address] [place], [address] Glucose [Mass/Vol] 123 mg/dL High 70-99 [facility] Comment on above: Performed By: #### L 500.2500, L501.2300, L100.0100, L501.5200 ####[facility] [address] [place], [address] Potassium [Moles/Vol] 4.1 mmol/L Normal 3.3-5.1 [facility] Comment on above: Performed By: #### L 500.2500, L501.2300, L100.0100, L501.5200 ####[facility] [address] [place], [address] Sodium [Moles/Vol] 134 mmol/L Normal 133-145 [facility] Comment on above: Performed By: #### L 500.2500, L501.2300, L100.0100, L501.5200 ####[facility] [address] [place], [address] Urea nitrogen [Mass/Vol] 10 mg/dL Normal 4-19 [facility] Comment on above: Performed By: #### L 500.2500, L501.2300, L100.0100, L501.5200 ####[facility] [address] [place], [address] Basophil percentageOrdered B y: Imani Persaud on 05-03-2025 Basophils/100 WBC (Bld) 2.0 % High 0-1 [facility] Bilirubin Test strip Ql (U)O rdered By: Delmis Corral on 05-03-2025 Bilirubin Ql (U) 3 mg/dL High Negative [facility] Comment on above: COLOR OF URINE MAY A FFECT DIPSTICK RESULTS. Bilirubin directOrdered By: Delmis Corral on 05-03-2025 Bilirubin.direct [Mass/Vol] 0.53 mg/dL High 0.00-0.30 [facility] Bilirubin, totalOrdered By: Delmis Corral on 05-03-2025 Bilirubin [Mass/Vol] 1.12 mg/dL 0.00-1.30 [facility] Blood manual differential co mment interpretation (narrative result)Ordered By: Imani Persaud on 05-03-2025 Manual differential comment Bassam (Bld) [Interp] SCANNED [facility] Comment on above: LEUKOCYTOPENIA NOTED Carbon dioxide, total [Moles /volume] in Central venous bloodOrdered By: Imani Persaud on 05-03-2025 CO2 [Moles/Vol] 20.0 mmol/L Low 21.0-32.0 [facility] Chloride assayOrdered By: Jonatan Persaud on 05-03-2025 Chloride [Moles/Vol] 101 mmol/L 98-108 [facility] Eosinophil percentageOrdered By: Imani Persaud on 05-03-2025 Eosinophils/100 WBC (Bld) 6.0 % High 0-5 [facility] Erythrocyte distribution wid th ratioOrdered By: [facility] Persaud on 05-03-2025 Erythrocyte distribution width (RBC) [Ratio] 12.5 % 11.6-14.6 [facility] Erythrocyte distribution wid th standard deviationOrdered By: [facility] Persaud on 05-03-2025 Erythrocyte distribution width (RBC) [Ratio] 36.5 fl 35.1-43.9 [facility] Glomerular filtration rate ( GFR) estimation/1.73 sq m using serum, plasma, or whole bOrdered By: Imani Persaud on 05-03-2025 GFR/1.73 sq M.predicted among non-blacks MDRD (S/P/Bld) [Vol rate/Area] 107 mL/min/{1.73_m2} >60 [facility] Comment on above: mL/min/1.73m2 CKD-EP I Creatinine Equation (2020) Hematocrit Auto (Bld) [Volum e fraction]Ordered By: Imani Persaud on 05-03-2025 Hematocrit (Bld) [Volume fraction] 32.4 % Low 37-47 [facility] Hemoglobin measurementOrdere d By: Imani Persaud on 05-03-2025 Hemoglobin (Bld) [Mass/Vol] 11.6 g/dL Low 12.0-15.0 [facility] Immature granulocytes/100 WB C Auto (Bld)Ordered By: Imani Persaud on 05-03-2025 Immature granulocytes/100 WBC (Bld) 0.000 % 0.0-0.9 [facility] Comment on above: IG% - Immature Granu locytes (promyelocytes, myelocytes and metamyelocytes) > 1% indicates that a LEFT SHIFT is Present. Immature platelet percentage Ordered By: Delmis Corral on 05-03-2025 Platelets reticulated/100 platelets Auto (Bld) 4.4 % 1.0-7.9 [facility] Comment on above: Low PLT [...] Ketones Ql (U) 5 mg/dl High Negative [facility] LDHon 05-03-2025 LDH 216 U/L Normal 84-246 [facility] Comment on above: Order Comment: ANNMARIE Angulo ADD ON1 Result Comment: Hemo lysis present, Results??could be affected.?? Performed By: #### L 504.2610, L100.9950, L3100.1850 ####[facility] [address] [place], [place], [id number] Laboratory - Chemistry and C hemistry - challengeOrdered By: Delmis Corral on 05-03-2025 AST [Catalytic activity/Vol] 40 U/L High <32 [facility] Lactate dehydrogenase (LDH) measurementOrdered By: Delmis Corral on 05-03-2025 LDH [Catalytic activity/Vol] 216 U/L 84-246 [facility] Comment on above: Hemolysis present, R esults could be affected. Liver Profileon 05-03-2025 Albumin [Mass/Vol] 3.5 g/dL Normal 3.5-5.0 [facility] Comment on above: Order Comment: MARIEL Angulo ADD ON Performed By: #### L 500.3400 ####[facility] [address] [place], [place], [id number] ALK PHOS 97 U/L Normal 35-104 [facility] Comment on above: Order Comment: MARIEL E ADD ON Performed By: #### L 500.3400 ####[facility] [address] [place], [address] ALT [Catalytic activity/Vol] 44 U/L High <=34 [facility] Comment on above: Order Comment: PLEAS E ADD ON Performed By: #### L 500.3400 ####[facility] [address] [place], [address] AST [Catalytic activity/Vol] 40 U/L High <=31 [facility] Comment on above: Order Comment: PLEAS E ADD ON Performed By: #### L 500.3400 ####[facility] [address] [place], [address] Bilirubin [Mass/Vol] 1.12 mg/dL Normal 0.00-1.30 [facility] Comment on above: Order Comment: PLEAS E ADD ON Performed By: #### L 500.3400 ####[facility] [address] [place], [address] Bilirubin.direct [Mass/Vol] 0.53 mg/dL High 0.00-0.30 [facility] Comment on above: Order Comment: PLEAS E ADD ON Performed By: #### L 500.3400 ####[facility] [address] [place], [address] Globulin (S) [Mass/Vol] 3.5 g/dL Normal 2.2-4.2 [facility] Comment on above: Order Comment: PLEAS E ADD ON Performed By: #### L 500.3400 ####[facility] [address] [place], [address] T PROT 6.9 g/dL Normal 5.9-8.4 [facility] Comment on above: Order Comment: PLEAS E ADD ON Performed By: #### L 500.3400 ####[facility] [address] [place], [address] MCV (mean corpuscular volume ) determinationOrdered By: Imani Persaud on 05-03-2025 MCV (RBC) [Entitic vol] 80.6 fL Low 81-99 [facility] Magnesiumon 05-03-2025 Magnesium [Mass/Vol] 1.9 mg/dL Normal 1.5-2.2 [facility] Comment on above: Performed By: #### L 500.2500, L501.2300, L100.0100, L501.5200 ####[facility] [address] [place], [address] Magnesium measurement (mass/ volume)Ordered By: Imani Persaud on 05-03-2025 Magnesium (Unsp spec) [Mass/Vol] 1.9 mg/dL 1.5-2.2 [facility] Mean corpuscular hemoglobin (MCH) determinationOrdered By: [facility] Persaud on 05-03-2025 MCH (RBC) [Entitic mass] 28.9 pg 27.0-32.0 [facility] Mean corpuscular hemoglobin concentration (MCHC) determinationOrdered By: [facility] Persaud on 05-03-2025 MCHC (RBC) [Mass/Vol] 35.8 g/dL 32-36 [facility] Mean platelet volume determi nationOrdered By: Imani Persaud on 05-03-2025 Platelet mean volume (Bld) [Entitic vol] 11.4 fL 6.2-12.0 [facility] Microscopic analysis of urin e for red blood cells (RBC)Ordered By: Delmis Corral on 05-03-2025 Microscopic analysis of urine for red blood cells (RBC) > 100 SEEN /hpf 0-5 [facility] Monocyte percentageOrdered B y: Imani Persaud on 05-03-2025 Monocytes/100 WBC (Bld) 6.0 % 0-10 [facility] Mucus LM Ql (Urine sed)Order ed By: Delmis Corral on 05-03-2025 Mucus Ql (Urine sed) 0 SEEN /hpf [facility] Neutrophil percentageOrdered By: [facility] Persaud on 05-03-2025 Neutrophils/100 WBC (Bld) 6.0 % Low 47-70 [facility] Nitrite Test strip Ql (U)Ord ered By: Delmis Corral on 05-03-2025 Nitrite Ql (U) Positive High Negative [facility] Nucleated red blood cell per centageOrdered By: Imani Persaud on 05-03-2025 Nucleated RBC/100 WBC (Bld) [Ratio] 0 % 0-5 [facility] Oncology Visit Reporton 04-15 Oncology Visit Report Normal [facility] Phosphoruson 05-03-2025 Phosphate [Mass/Vol] 2.1 mg/dL Low 2.7-4.5 [facility] Comment on above: Performed By: #### L 500.2500, L501.2300, L100.0100, L501.5200 ####[facility] [address] [place], [address] Platelet countOrdered By: Jonatan Persaud on 05-03-2025 Platelets (Bld) [#/Vol] 28 10*3/uL Low 150-450 [facility] Comment on above: CRITICAL VALUE HOFFMAN D TO SAOGGBH87/19/25 1126 Gladis Lloyd.RESULTS READ BACK BY SAME. Platelet estimateOrdered By: Imani Persaud on 05-03-2025 Platelets LM Ql (Bld) MKD DEC ADEQ [facility] Potassium measurement (mass/ volume)Ordered By: Imani Persaud on 05-03-2025 Potassium (Unsp spec) [Mass/Vol] 4.1 mmol/L 3.3-5.1 [facility] Protein Test strip Ql (U)Ord ered By: Delmis Corral on 05-03-2025 Protein Ql (U) 100 mg/dl High Negative [facility] RBC Auto (Bld) [#/Vol]Ordere d By: Imani Persaud on 05-03-2025 RBC (Bld) [#/Vol] 4.02 10*6/uL Low 4.2-5.4 [facility] Retic Panelon 05-03-2025 IM RET FRACTION 0.90 Low 3.00-15.90 [facility] Comment on above: Order Comment: MARIEL Angulo ADD ON Performed By: #### L 504.2610, L100.9950, L3100.1850 ####[facility] [address] [place], [address] IPF 4.4 Normal 1.0-7.9 [facility] Comment on above: Order Comment: MARIEL Angulo ADD ON Result Comment: Low PLT + Low IPF suggest a bone marrow production disorderLow PLT + high IPF suggests peripheral destruction(e.g.ITP, TTP, HIT, DIC, autoimmune) or bone marrow recoveryTrending of serial IPF measurements is recommended whenevaluating for bone marrow responesValue above normal range indicates an increase in RBCcellular response from bone marrow. Performed By: #### L 504.2610, L100.9950, L3100.1850 ####[facility] [address] [place], [address] RET-HE 36.0 pg High 30-35 [facility] Comment on above: Order Comment: MARIEL Angulo ADD ON Performed By: #### L 504.2610, L100.9950, L3100.1850 ####[facility] [address] [place], [address] Retic Count 0.45 Low 0.5-1.5 [facility] Comment on above: Order Comment: MARIEL Angulo ADD ON Performed By: #### L 504.2610, L100.9950, L3100.1850 ####[facility] [address] [place], [address] Reticulocyte hemoglobin equi valent (RET-He) measurementOrdered By: Delmis Corral on 05-03-2025 Hemoglobin (Reticulocytes) [Entitic mass] 36.0 pg High 30-35 [facility] Reticulocytes Auto (Bld) [#/ Vol]Ordered By: Delmis Corral on 05-03-2025 Reticulocytes/100 RBC (Bld) 0.45 % Low 0.5-1.5 [facility] Review by pathologistOrdered By: Imani Persaud on 05-03-2025 Pathologist review Bassam (Unsp spec) [Interp] March johnny [facility] Serum creatinine measurement (mass/volume)Ordered By: Imani Persaud on 05-03-2025 Creatinine [Mass/Vol] 0.59 mg/dL Low 0.70-1.20 [facility] Serum globulin measurementOr dered By: Delmis Corral on 05-03-2025 Globulin (S) [Mass/Vol] 3.5 g/dL 2.2-4.2 [facility] Serum glucose measurement (m ass/volume)Ordered By: Imani Persaud on 05-03-2025 Glucose [Mass/Vol] 123 mg/dL High 70-99 [facility] Serum or plasma alanine del rio otransferase (ALT) measurementOrdered By: Delmis Corral on 05-03-2025 ALT [Catalytic activity/Vol] 44 U/L High <35 [facility] Serum or plasma albumin cass urement (mass/volume)Ordered By: Delmis Corral on 05-03-2025 Albumin [Mass/Vol] 3.5 g/dL 3.5-5.0 [facility] Serum or plasma alkaline tre sphatase measurementOrdered By: Delmis Corral on 05-03-2025 ALP [Catalytic activity/Vol] 97 U/L 35-104 [facility] Serum or plasma calcium cass urement (mass/volume)Ordered By: Imani Persaud on 05-03-2025 Calcium [Mass/Vol] 8.7 mg/dL 7.6-11.0 [facility] [facility] Serum or plasma urea nitroge n measurement (mass/volume)Ordered By: Imani Persaud on 05-03-2025 Urea nitrogen [Mass/Vol] 10 mg/dL 4-19 [facility] Sodium levelOrdered By: Jennifer Persaud on 05-03-2025 Sodium [Moles/Vol] 134 mmol/L 133-145 [facility] Squamous epithelial cells de tection in urine sediment by light microscopyOrdered By: Delmis Corral on 05-03-2025 Epithelial cells.squamous LM Ql (Urine sed) 0-5 SEEN /hpf 5-10 [facility] Total proteinOrdered By: Vance Corral on 05-03-2025 Protein [Mass/Vol] 6.9 g/dL 5.9-8.4 [facility] Urinalysis, Completeon 05-03 BACTERIA RARE Normal None Seen [facility] Comment on above: Order Comment: COLOR OF URINE MAY AFFECT DIPSTICK RESULTS.ATOMIC PHYSICS TEACHER TO SPECIFY Performed By: #### L 400.0001 ####[facility] [address] [place], [address] EPI,SQUAMOUS 0-5 SEEN Normal 5-10 [facility] Comment on above: Order Comment: COLOR OF URINE MAY AFFECT DIPSTICK RESULTS.ATOMIC PHYSICS TEACHER TO SPECIFY Performed By: #### L 400.0001 ####[facility] [address] [place], [address] RBC > 100 SEEN Normal 0-5 [facility] Comment on above: Order Comment: COLOR OF URINE MAY AFFECT DIPSTICK RESULTS.ATOMIC PHYSICS TEACHER TO SPECIFY Performed By: #### L 400.0001 ####[facility] [address] [place], [address] Mucus Ql (Urine sed) 0 SEEN Normal [facility] Comment on above: Order Comment: COLOR OF URINE MAY AFFECT DIPSTICK RESULTS.ATOMIC PHYSICS TEACHER TO SPECIFY Performed By: #### L 400.0001 ####[facility] [address] [place], [address] WBC 0 SEEN Normal 0-5 [facility] Comment on above: Order Comment: COLOR OF URINE MAY AFFECT DIPSTICK RESULTS.ATOMIC PHYSICS TEACHER TO SPECIFY Performed By: #### L 400.0001 ####[facility] [address] [place], [address] Urine clarityOrdered By: Vance Corral on 05-03-2025 Clarity (U) Cloudy Clear [facility] Urine color determinationOrd ered By: Delmis Corral on 05-03-2025 Color (U) Mirna Yellow [facility] Urine glucose detectionOrder ed By: Delmis Corral on 05-03-2025 Glucose Ql (U) Normal mg/dl Normal [facility] Urine leukocyte esterase det ection by dipstickOrdered By: Delmis Corral on 05-03-2025 Leukocyte esterase Test strip Ql (U) 25 /ul High Negative [facility] Urine pHOrdered By: Delmis solomon on 05-03-2025 pH (U) 6.0 [pH] 5.0 - 8.0 [facility] Urine sediment bacteria coun t by microscopy (number/high power field)Ordered By: Delmis Corral on 05-03-2025 Bacteria LM.HPF (Urine sed) [#/Area] RARE /hpf None Seen [facility] Urine specific gravity measu rementOrdered By: Delmisdavid Corral on 05-03-2025 Specific gravity (U) [Rel density] 1.010 1.002-1.030 [facility] Urine urobilinogen measureme ntOrdered By: Delmis Corral on 05-03-2025 Urobilinogen Ql (U) 12 mg/dl High Normal [facility] White blood cell (WBC) count Ordered By: Imani Persaud on 05-03-2025 WBC (Bld) [#/Vol] 0.5 10*3/uL Low 4.4-11.0 [facility] Comment on above: CRITICAL VALUE HOFFMAN D TO [id number]/19/25 1126 Gladis Lloyd.RESULTS READ BACK BY SAME. White blood cell countOrdere d By: Delmis Corral on 05-03-2025 White blood cell count 0 SEEN /hpf 0-5 [facility] Urine Cultureon 04-30-2025 URC Mixed Gram Positive Organisms [place] Count 25,000-50,000 MIXC Mixed contaminants. Submit a new specimen if indicated. Normal [facility] Comment on above: Performed By: #### M 100.2200, L400.0001 ####[facility] [address] [place], [address] Absolute lymphocyte countOrd ered By: ED PROVIDER on 04-28-2025 Lymphocytes Auto (Unsp spec) [#/Vol] 0.75 10*3/uL Low 0.83-4.51 [facility] Absolute neutrophil countOrd ered By: ED PROVIDER on 04-28-2025 Neutrophils (Bld) [#/Vol] 3.5 10*3/uL 2.0-7.7 [facility] Activated partial thrombopla stin time (aPTT) in platelet poor plasma by coagulation aOrdered By: ED PROVIDER on 04-28-2025 aPTT Coag (PPP) [Time] 29.8 s 24.1-36.2 [facility] Anion gap in Serum or Plasma Ordered By: ED PROVIDER on 04-28-2025 Anion gap [Moles/Vol] 11 mmol/L 5-15 [facility] Automated lymphocyte count a s percentage of total leukocytesOrdered By: ED PROVIDER on 04-28-2025 Lymphocytes/100 WBC Auto (Unsp spec) 17.3 % Low 19-41 [facility] BUN/creatinine ratioOrdered By: ED PROVIDER on 04-28-2025 Urea nitrogen/Creatinine [Mass ratio] 18.8 mg/mg 10-20 [facility] Basophil percentageOrdered B y: ED PROVIDER on 04-28-2025 Basophils/100 WBC (Bld) 0.2 % 0-1 [facility] Bilirubin Test strip Ql (U)O rdered By: Girish Mcgarry on 04-28-2025 Bilirubin Ql (U) Negative Negative [facility] Bilirubin, totalOrdered By: ED PROVIDER on 04-28-2025 Bilirubin [Mass/Vol] 1.02 mg/dL 0.00-1.30 [facility] Blood cultureOrdered By: Rodrigo Mcgarry on 04-28-2025 Bacteria identified Cx Nom (Bld) No growth in 5 days. [facility] Blood cultureOrdered By: ED PROVIDER on 04-28-2025 Bacteria identified Cx Nom (Bld) No growth in 5 days. 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, [address] Carbon dioxide, total [Moles /volume] in Central venous bloodOrdered By: ED PROVIDER on 04-28-2025 CO2 [Moles/Vol] 18.6 mmol/L Low 21.0-32.0 [facility] Chest PA and Lateralon 04-28 Chest PA and Lateral Normal [facility] Chloride assayOrdered By: ED PROVIDER on 04-28-2025 Chloride [Moles/Vol] 103 mmol/L 98-108 [facility] Comprehensive Metabolic Prof ilon 04-28-2025 Albumin [Mass/Vol] 3.4 g/dL Low 3.5-5.0 [facility] Comment on above: Performed By: #### M 200.1000, L300.3900, L300.4310, L503.6005, L500.4050, L100.0100 ####[facility] [address] [place], [address] Albumin/Globulin [Mass ratio] 1.1 {ratio} Normal 0.9-2.4 [facility] Comment on above: Performed By: #### M 200.1000, L300.3900, L300.4310, L503.6005, L500.4050, L100.0100 ####[facility] [address] [place], [address] ALK PHOS 93 U/L Normal 35-104 [facility] Comment on above: Performed By: #### M 200.1000, L300.3900, L300.4310, L503.6005, L500.4050, L100.0100 ####[facility] [address] [place], [address] ALT [Catalytic activity/Vol] 18 U/L Normal <=34 [facility] Comment on above: Performed By: #### M 200.1000, L300.3900, L300.4310, L503.6005, L500.4050, L100.0100 ####[facility] [address] [place], [address] AST [Catalytic activity/Vol] 21 U/L Normal <=31 [facility] Comment on above: Performed By: #### M 200.1000, L300.3900, L300.4310, L503.6005, L500.4050, L100.0100 ####[facility] [address] [place], [address] Bilirubin [Mass/Vol] 1.02 mg/dL Normal 0.00-1.30 [facility] Comment on above: Performed By: #### M 200.1000, L300.3900, L300.4310, L503.6005, L500.4050, L100.0100 ####[facility] [address] [place], [address] BUN/CRE 18.8 RATIO Normal 10-20 [facility] Comment on above: Performed By: #### M 200.1000, L300.3900, L300.4310, L503.6005, L500.4050, L100.0100 ####[facility] [address] [place], [address] Calcium [Mass/Vol] 8.4 mg/dL Normal 7.6-11.0 [facility] Comment on above: Performed By: #### M 200.1000, L300.3900, L300.4310, L503.6005, L500.4050, L100.0100 ####[facility] [address] [place], [address] Chloride [Moles/Vol] 103 mmol/L Normal 98-108 [facility] Comment on above: Performed By: #### M 200.1000, L300.3900, L300.4310, L503.6005, L500.4050, L100.0100 ####[facility] [address] [place], [address] CO2 [Moles/Vol] 18.6 mmol/L Low 21.0-32.0 [facility] Comment on above: Performed By: #### M 200.1000, L300.3900, L300.4310, L503.6005, L500.4050, L100.0100 ####[facility] [address] [place], [address] Creatinine [Mass/Vol] 0.57 mg/dL Low 0.70-1.20 [facility] Comment on above: Performed By: #### M 200.1000, L300.3900, L300.4310, L503.6005, L500.4050, L100.0100 ####[facility] [address] [place], [address] ECRCL 136.93 ml/min Normal 50-250 [facility] Comment on above: Performed By: #### M 200.1000, L300.3900, L300.4310, L503.6005, L500.4050, L100.0100 ####[facility] [address] [place], [address] GAP 11 Normal 5-15 [facility] Comment on above: Performed By: #### M 200.1000, L300.3900, L300.4310, L503.6005, L500.4050, L100.0100 ####[facility] [address] [place], [address] GFR/1.73 sq M.predicted among non-blacks MDRD (S/P/Bld) [Vol rate/Area] 108 mL/min/{1.73_m2} Normal >60 [facility] Comment on above: Result Comment: mL/m in/1.73m2 CKD-EPI Creatinine Equation (2020) Performed By: #### M 200.1000, L300.3900, L300.4310, L503.6005, L500.4050, L100.0100 ####[facility] [address] [place], [address] Globulin (S) [Mass/Vol] 3.2 g/dL Normal 2.2-4.2 [facility] Comment on above: Performed By: #### M 200.1000, L300.3900, L300.4310, L503.6005, L500.4050, L100.0100 ####[facility] [address] [place], [address] Glucose [Mass/Vol] 130 mg/dL High 70-99 [facility] Comment on above: Performed By: #### M 200.1000, L300.3900, L300.4310, L503.6005, L500.4050, L100.0100 ####[facility] [address] [place], [address] Potassium [Moles/Vol] 4.0 mmol/L Normal 3.3-5.1 [facility] Comment on above: Performed By: #### M 200.1000, L300.3900, L300.4310, L503.6005, L500.4050, L100.0100 ####[facility] [address] [place], [address] Sodium [Moles/Vol] 132 mmol/L Low 133-145 [facility] Comment on above: Performed By: #### M 200.1000, L300.3900, L300.4310, L503.6005, L500.4050, L100.0100 ####[facility] [address] [place], [place], [id number] T PROT 6.6 g/dL Normal 5.9-8.4 [facility] Comment on above: Performed By: #### M 200.1000, L300.3900, L300.4310, L503.6005, L500.4050, L100.0100 ####[facility] [address] [facility] [place], [address] Urea nitrogen [Mass/Vol] 11 mg/dL Normal 4-19 [facility] Comment on above: Performed By: #### M 200.1000, L300.3900, L300.4310, L503.6005, L500.4050, L100.0100 ####[facility] [address] [facility] [place], [place], [id number] Emergency Department Summary on 04-28-2025 Emergency Department Summary Normal [facility] Eosinophil percentageOrdered By: ED PROVIDER on 04-28-2025 Eosinophils/100 WBC (Bld) 0.2 % 0-5 [facility] Erythrocyte distribution wid th ratioOrdered By: ED PROVIDER on 04-28-2025 Erythrocyte distribution width (RBC) [Ratio] 13.0 % 11.6-14.6 [facility] Erythrocyte distribution wid th standard deviationOrdered By: ED PROVIDER on 04-28-2025 Erythrocyte distribution width (RBC) [Ratio] 39.2 fl 35.1-43.9 [facility] Erythrocyte morphology asses smentOrdered By: ED PROVIDER on 04-28-2025 RBC morphology finding Nom (Bld) NORM C+C NORMAL NORM C&C [facility] Glomerular filtration rate ( GFR) estimation/1.73 sq m using serum, plasma, or whole bOrdered By: ED PROVIDER on 04-28-2025 GFR/1.73 sq M.predicted among non-blacks MDRD (S/P/Bld) [Vol rate/Area] 108 mL/min/{1.73_m2} >60 [facility] Comment on above: mL/min/1.73m2 CKD-EP I Creatinine Equation (2020) Hematocrit Auto (Bld) [Volum e fraction]Ordered By: ED PROVIDER on 04-28-2025 Hematocrit (Bld) [Volume fraction] 37.8 % 37-47 [facility] Hemoglobin measurementOrdere d By: ED PROVIDER on 04-28-2025 Hemoglobin (Bld) [Mass/Vol] 13.1 g/dL 12.0-15.0 [facility] Immature granulocytes/100 WB C Auto (Bld)Ordered By: ED PROVIDER on 04-28-2025 Immature granulocytes/100 WBC (Bld) 0.500 % 0.0-0.9 [facility] Comment on above: IG% - Immature Granu locytes (promyelocytes, myelocytes and metamyelocytes) > 1% indicates that a LEFT SHIFT is Present. International normalized rat io (INR) calculationOrdered By: ED PROVIDER on 04-28-2025 INR Coag (Bld) [Relative time] 1.2 {INR} [facility] Ketones Test strip Ql (U)Ord ered By: Girish Mcgarry on 04-28-2025 Ketones Ql (U) Negative Negative [facility] Laboratory - Chemistry and C hemistry - challengeOrdered By: ED PROVIDER on 04-28-2025 AST [Catalytic activity/Vol] 21 U/L <32 [facility] Lactic Acidon 04-28-2025 Lactate [Moles/Vol] mmol/L Normal 0.0-2.0 [facility] Comment on above: Order Comment: Y Performed By: #### M 200.1000, L300.3900, L300.4310, L503.6005, L500.4050, L100.0100 ####[facility] [address] [place], [address] Lactic acid measurementOrder ed By: Girish Mcgarry on 04-28-2025 Lactate [Moles/Vol] mmol/L 0.0-2.0 [facility] MCV (mean corpuscular volume ) determinationOrdered By: ED PROVIDER on 04-28-2025 MCV (RBC) [Entitic vol] 83.3 fL 81-99 [facility] Magnesiumon 04-28-2025 Magnesium [Mass/Vol] 1.8 mg/dL Normal 1.5-2.2 [facility] Comment on above: Performed By: #### L 501.5200, L501.2300 ####[facility] [address] [place], [address] Magnesium measurement (mass/ volume)Ordered By: Girish Mcgarry on 04-28-2025 Magnesium (Unsp spec) [Mass/Vol] 1.8 mg/dL 1.5-2.2 [facility] Mean corpuscular hemoglobin (MCH) determinationOrdered By: ED PROVIDER on 04-28-2025 MCH (RBC) [Entitic mass] 28.9 pg 27.0-32.0 [facility] Mean corpuscular hemoglobin concentration (MCHC) determinationOrdered By: ED PROVIDER on 04-28-2025 MCHC (RBC) [Mass/Vol] 34.7 g/dL 32-36 [facility] Mean platelet volume determi nationOrdered By: ED PROVIDER on 04-28-2025 Platelet mean volume (Bld) [Entitic vol] 10.6 fL 6.2-12.0 [facility] Microscopic analysis of urin e for red blood cells (RBC)Ordered By: Girish Mcgarry on 04-28-2025 Microscopic analysis of urine for red blood cells (RBC) > 100 SEEN /hpf 0-5 [facility] Monocyte percentageOrdered B y: ED PROVIDER on 04-28-2025 Monocytes/100 WBC (Bld) 0.5 % 0-10 [facility] Mucus LM Ql (Urine sed)Order ed By: Girish Mcgarry on 04-28-2025 Mucus Ql (Urine sed) 3+ /hpf [facility] Neutrophil percentageOrdered By: ED PROVIDER on 04-28-2025 Neutrophils/100 WBC (Bld) 81.3 % High 47-70 [facility] Nitrite Test strip Ql (U)Ord ered By: Girish Mcgarry on 04-28-2025 Nitrite Ql (U) Negative Negative [facility] No Panel InformationOrdered By: ED PROVIDER on 04-28-2025 21 U/L <32 [facility] Nucleated red blood cell per centageOrdered By: ED PROVIDER on 04-28-2025 Nucleated RBC/100 WBC (Bld) [Ratio] 0 % 0-5 [facility] Partial Thromboplast Timeon 04-28-2025 aPTT Coag (Bld) [Time] 29.8 s Normal 24.1-36.2 [facility] Comment on above: Performed By: #### M 200.1000, L300.3900, L300.4310, L503.6005, L500.4050, L100.0100 ####[facility] [address] [place], [address] Phosphoruson 04-28-2025 Phosphate [Mass/Vol] 2.1 mg/dL Low 2.7-4.5 [facility] Comment on above: Performed By: #### L 501.5200, L501.2300 ####[facility] [address] [place], [address] Platelet countOrdered By: ED PROVIDER on 04-28-2025 Platelets (Bld) [#/Vol] 67 10*3/uL Low 150-450 [facility] Platelet estimateOrdered By: ED PROVIDER on 04-28-2025 Platelets LM Ql (Bld) MOD DEC ADEQ [facility] Potassium measurement (mass/ volume)Ordered By: ED PROVIDER on 04-28-2025 Potassium (Unsp spec) [Mass/Vol] 4.0 mmol/L 3.3-5.1 [facility] Protein Test strip Ql (U)Ord ered By: Girish Mcgarry on 04-28-2025 Protein Ql (U) 100 mg/dl High Negative [facility] Prothrombin Time w/INRon INR Coag (PPP) [Relative time] 1.2 {INR} Normal [facility] Comment on above: Performed By: #### M 200.1000, L300.3900, L300.4310, L503.6005, L500.4050, L100.0100 ####[facility] [address] [place], [address] PT Coag (PPP) [Time] 15.3 s High 11.7-14.9 [facility] Comment on above: Performed By: #### M 200.1000, L300.3900, L300.4310, L503.6005, L500.4050, L100.0100 ####[facility] [address] [place], [address] Prothrombin timeOrdered By: ED PROVIDER on 04-28-2025 PT Coag (PPP) [Time] 15.3 s High 11.7-14.9 [facility] RBC Auto (Bld) [#/Vol]Ordere d By: ED PROVIDER on 04-28-2025 RBC (Bld) [#/Vol] 4.54 10*6/uL 4.2-5.4 [facility] Serum creatinine measurement (mass/volume)Ordered By: ED PROVIDER on 04-28-2025 Creatinine [Mass/Vol] 0.57 mg/dL Low 0.70-1.20 [facility] Serum globulin measurementOr dered By: ED PROVIDER on 04-28-2025 Globulin (S) [Mass/Vol] 3.2 g/dL 2.2-4.2 [facility] Serum glucose measurement (m ass/volume)Ordered By: ED PROVIDER on 04-28-2025 Glucose [Mass/Vol] 130 mg/dL High 70-99 [facility] Serum or plasma alanine del rio otransferase (ALT) measurementOrdered By: ED PROVIDER on 04-28-2025 ALT [Catalytic activity/Vol] 18 U/L <35 [facility] Serum or plasma albumin cass urement (mass/volume)Ordered By: ED PROVIDER on 04-28-2025 Albumin [Mass/Vol] 3.4 g/dL Low 3.5-5.0 [facility] Serum or plasma albumin/glob ulin mass ratioOrdered By: ED PROVIDER on 04-28-2025 Albumin/Globulin [Mass ratio] 1.1 {ratio} 0.9-2.4 [facility] Serum or plasma alkaline tre sphatase measurementOrdered By: ED PROVIDER on 04-28-2025 ALP [Catalytic activity/Vol] 93 U/L 35-104 [facility] Serum or plasma calcium cass urement (mass/volume)Ordered By: ED PROVIDER on 04-28-2025 Calcium [Mass/Vol] 8.4 mg/dL 7.6-11.0 [facility] Serum or plasma urea nitroge n measurement (mass/volume)Ordered By: ED PROVIDER on 04-28-2025 Urea nitrogen [Mass/Vol] 11 mg/dL 4-19 [facility] Sodium levelOrdered By: ED P ADELAAREN on 04-28-2025 Sodium [Moles/Vol] 132 mmol/L Low 133-145 [facility] Squamous epithelial cells de tection in urine sediment by light microscopyOrdered By: Girish Mcgarry on 04-28-2025 Epithelial cells.squamous LM Ql (Urine sed) 5-10 SEEN /hpf 5-10 [facility] Total proteinOrdered By: ED PROVIDER on 04-28-2025 Protein [Mass/Vol] 6.6 g/dL 5.9-8.4 [facility] Urinalysis, Completeon 04-28 BACTERIA 2+ /hpf Normal None Seen [facility] Comment on above: Order Comment: COLOR OF URINE MAY AFFECT DIPSTICK RESULTS.CLEAN CATCH Performed By: #### M 100.2200, L400.0001 ####[facility] [address] [place], [address] EPI,SQUAMOUS 5-10 SEEN Normal 5-10 [facility] Comment on above: Order Comment: COLOR OF URINE MAY AFFECT DIPSTICK RESULTS.CLEAN CATCH Performed By: #### M 100.2200, L400.0001 ####[facility] [address] [place], [address] Mucus Ql (Urine sed) 3+ /hpf Normal [facility] Comment on above: Order Comment: COLOR OF URINE MAY AFFECT DIPSTICK RESULTS.CLEAN CATCH Performed By: #### M 100.2200, L400.0001 ####[facility] [address] [place], [address] RBC > 100 SEEN Normal 0-5 [facility] Comment on above: Order Comment: COLOR OF URINE MAY AFFECT DIPSTICK RESULTS.CLEAN CATCH Performed By: #### M 100.2200, L400.0001 ####[facility] [address] [place], [address] WBC >100 SEEN Normal 0-5 [facility] Comment on above: Order Comment: COLOR OF URINE MAY AFFECT DIPSTICK RESULTS.CLEAN CATCH Performed By: #### M 100.2200, L400.0001 ####[facility] [address] [place], [address] BILIRUBIN URINE Negative Normal Negative [facility] Comment on above: Order Comment: COLOR OF URINE MAY AFFECT DIPSTICK RESULTS.CLEAN CATCH Performed By: #### M 100.2200, L400.0001 ####[facility] [address] [place], [address] Clarity (U) Sl. Cloudy Normal Clear [facility] Comment on above: Order Comment: COLOR OF URINE MAY AFFECT DIPSTICK RESULTS.CLEAN CATCH Performed By: #### M 100.2200, L400.0001 ####[facility] [address] [place], [address] Color (U) Mirna Normal Yellow [facility] Comment on above: Order Comment: COLOR OF URINE MAY AFFECT DIPSTICK RESULTS.CLEAN CATCH Performed By: #### M 100.2200, L400.0001 ####[facility] [address] [place], [address] GLUCOSE, UR Normal Normal Normal [facility] Comment on above: Order Comment: COLOR OF URINE MAY AFFECT DIPSTICK RESULTS.CLEAN CATCH Performed By: #### M 100.2200, L400.0001 ####[facility] [address] [place], [address] KETONE UR Negative Normal Negative [facility] Comment on above: Order Comment: COLOR OF URINE MAY AFFECT DIPSTICK RESULTS.CLEAN CATCH Performed By: #### M 100.2200, L400.0001 ####[facility] [address] [place], [address] LEUK ESTERASE 100 /ul Abnormal Negative [facility] Comment on above: Order Comment: COLOR OF URINE MAY AFFECT DIPSTICK RESULTS.CLEAN CATCH Performed By: #### M 100.2200, L400.0001 ####[facility] [address] [place], [address] Nitrite Ql (U) Negative Normal Negative [facility] Comment on above: Order Comment: COLOR OF URINE MAY AFFECT DIPSTICK RESULTS.CLEAN CATCH Performed By: #### M 100.2200, L400.0001 ####[facility] [address] [place], [address] OCCULT BLOOD-UR 250 /ul Abnormal Negative [facility] Comment on above: Order Comment: COLOR OF URINE MAY AFFECT DIPSTICK RESULTS.CLEAN CATCH Performed By: #### M 100.2200, L400.0001 ####[facility] [address] [place], [address] pH UR 7.0 Normal 5.0 - 8.0 [facility] Comment on above: Order Comment: COLOR OF URINE MAY AFFECT DIPSTICK RESULTS.CLEAN CATCH Performed By: #### M 100.2200, L400.0001 ####[facility] [address] [place], [address] PROT DIPSTX 100 mg/dl Abnormal Negative [facility] Comment on above: Order Comment: COLOR OF URINE MAY AFFECT DIPSTICK RESULTS.CLEAN CATCH Performed By: #### M 100.2200, L400.0001 ####[facility] [address] [place], [address] SP.GR. DIPSTX 1.010 Normal 1.002-1.030 [facility] Comment on above: Order Comment: COLOR OF URINE MAY AFFECT DIPSTICK RESULTS.CLEAN CATCH Performed By: #### M 100.2200, L400.0001 ####[facility] [address] [place], [address] UROBILI 1 mg/dl Abnormal Normal [facility] Comment on above: Order Comment: COLOR OF URINE MAY AFFECT DIPSTICK RESULTS.CLEAN CATCH Performed By: #### M 100.2200, L400.0001 ####[facility] [address] [place], [address] Urine clarityOrdered By: Rodrigo Mcgarry on 04-28-2025 Clarity (U) Sl. Cloudy Clear [facility] Urine color determinationOrd ered By: Girish Mcgarry on 04-28-2025 Color (U) Mirna Yellow [facility] Urine cultureOrdered By: Rodrigo Mcgarry on 04-28-2025 Bacteria identified Cx Nom (U) Positive Abnormal [facility] Urine glucose detectionOrder ed By: Girish Mcgarry on 04-28-2025 Glucose Ql (U) Normal mg/dl Normal [facility] Urine leukocyte esterase det ection by dipstickOrdered By: Girish Mcgarry on 04-28-2025 Leukocyte esterase Test strip Ql (U) 100 /ul High Negative [facility] Urine pHOrdered By: Girish betancourt on 04-28-2025 pH (U) 7.0 [pH] 5.0 - 8.0 [facility] Urine sediment bacteria coun t by microscopy (number/high power field)Ordered By: Girish Mcgarry on 04-28-2025 Bacteria LM.HPF (Urine sed) [#/Area] 2 /[HPF] None Seen [facility] Urine specific gravity measu rementOrdered By: Girish Mcgarry on 04-28-2025 Specific gravity (U) [Rel density] 1.010 1.002-1.030 [facility] Urine urobilinogen measureme ntOrdered By: Girish Mcgarry on 04-28-2025 Urobilinogen Ql (U) 1 mg/dl High Normal [facility] White blood cell (WBC) count Ordered By: ED PROVIDER on 04-28-2025 WBC (Bld) [#/Vol] 4.3 10*3/uL Low 4.4-11.0 [facility] White blood cell countOrdere d By: Girish Mcgarry on 04-28-2025 White blood cell count >100 SEEN /hpf 0-5 [facility] Absolute lymphocyte countOrd ered By: Jenniferira Persaud on 04-26-2025 Lymphocytes Auto (Unsp spec) [#/Vol] 1.16 10*3/uL 0.83-4.51 [facility] Absolute neutrophil countOrd ered By: [facility] on 04-26-2025 Neutrophils (Bld) [#/Vol] 3.5 10*3/uL 2.0-7.7 [facility] Anion gap in Serum or Plasma Ordered By: Imani Persaud on 04-26-2025 Anion gap [Moles/Vol] 13 mmol/L 5-15 [facility] Automated lymphocyte count a s percentage of total leukocytesOrdered By: [facility] Persaud on 04-26-2025 Lymphocytes/100 WBC Auto (Unsp spec) 24.1 % - [facility] BUN/creatinine ratioOrdered By: [facility] Persaud on 04-26-2025 Urea nitrogen/Creatinine [Mass ratio] 15.3 mg/mg 10- [facility] Basophil percentageOrdered B y: Imani Persaud on 04-26-2025 Basophils/100 WBC (Bld) 0.2 % 0-1 [facility] Bilirubin, totalOrdered By: [facility] Persaud on 04-26-2025 Bilirubin [Mass/Vol] 0.30 mg/dL 0.00-1.30 [facility] CBC W/Diff, Automatedon 04-15 Absolute Lymph 1.16 X10 3/uL Normal 0.83-4.51 [facility] Comment on above: Performed By: #### L 500.4050, L100.0100, L501.5200 ####[facility] [address] [place], [address] Absolute Neut 3.5 X10 3/uL Normal 2.0-7.7 [facility] Comment on above: Performed By: #### L 500.4050, L100.0100, L501.5200 ####[facility] [address] [place], [address] Basophils/100 WBC (Bld) 0.2 % Normal 0-1 [facility] Comment on above: Performed By: #### L 500.4050, L100.0100, L501.5200 ####[facility] [address] [place], [address] Eosinophils/100 WBC (Bld) 0.2 % Normal 0-5 [facility] Comment on above: Performed By: #### L 500.4050, L100.0100, L501.5200 ####[facility] [address] [place], [address] Erythrocyte distribution width (RBC) [Ratio] 12.8 % Normal 11.6-14.6 [facility] Comment on above: Performed By: #### L 500.4050, L100.0100, L501.5200 ####[facility] [address] [place], [address] Hematocrit (Bld) [Volume fraction] 38.3 % Normal 37-47 [facility] Comment on above: Performed By: #### L 500.4050, L100.0100, L501.5200 ####[facility] [address] [place], [address] Hemoglobin (Bld) [Mass/Vol] 13.4 g/dL Normal 12.0-15.0 [facility] Comment on above: Performed By: #### L 500.4050, L100.0100, L501.5200 ####[facility] [address] [place], [address] IG% 0.200 Normal 0.0-0.9 [facility] Comment on above: Result Comment: IG% - Immature Granulocytes (promyelocytes, myelocytes andmetamyelocytes) > 1% indicates that a LEFT SHIFT is Present. Performed By: #### L 500.4050, L100.0100, L501.5200 ####[facility] [address] [place], [address] Lymphocytes/100 WBC (Bld) 24.1 % Normal 19-41 [facility] Comment on above: Performed By: #### L 500.4050, L100.0100, L501.5200 ####[facility] [address] [place], [address] MCH (RBC) [Entitic mass] 29.4 pg Normal 27.0-32.0 [facility] Comment on above: Performed By: #### L 500.4050, L100.0100, L501.5200 ####[facility] [address] [place], [address] MCHC (RBC) [Mass/Vol] 35.0 g/dL Normal 32-36 [facility] Comment on above: Performed By: #### L 500.4050, L100.0100, L501.5200 ####[facility] [address] [place], [address] MCV (RBC) [Entitic vol] 84.0 fL Normal 81-99 [facility] Comment on above: Performed By: #### L 500.4050, L100.0100, L501.5200 ####[facility] [address] [place], [address] Monocytes/100 WBC (Bld) 2.5 % Normal 0-10 [facility] Comment on above: Performed By: #### L 500.4050, L100.0100, L501.5200 ####[facility] [address] [place], [address] Neutrophils/100 WBC (Bld) 72.8 % High 47-70 [facility] Comment on above: Performed By: #### L 500.4050, L100.0100, L501.5200 ####[facility] [address] [place], [address] Nucleated RBC (Bld) [#/Vol] 0 10*3/uL Normal 0-5 [facility] Comment on above: Performed By: #### L 500.4050, L100.0100, L501.5200 ####[facility] [address] [place], [address] Platelet mean volume (Bld) [Entitic vol] 10.0 fL Normal 6.2-12.0 [facility] Comment on above: Performed By: #### L 500.4050, L100.0100, L501.5200 ####[facility] [address] [place], [address] Platelets (Bld) [#/Vol] 126 10*3/uL Low 150-450 [facility] Comment on above: Performed By: #### L 500.4050, L100.0100, L501.5200 ####[facility] [address] [place], [address] RBC (Bld) [#/Vol] 4.56 10*6/uL Normal 4.2-5.4 [facility] Comment on above: Performed By: #### L 500.4050, L100.0100, L501.5200 ####[facility] [address] [place], [address] RDW SD 39.1 fl Normal 35.1-43.9 [facility] Comment on above: Performed By: #### L 500.4050, L100.0100, L501.5200 ####[facility] [address] [place], [address] WBC (Bld) [#/Vol] 4.8 10*3/uL Normal 4.4-11.0 [facility] Comment on above: Performed By: #### L 500.4050, L100.0100, L501.5200 ####[facility] [address] [place], [address] Absolute Neut Normal 2.0-7.7 [facility] Comment on above: Result Comment: DUPL ICATE TEST Performed By: #### L 501.2300, L100.0100 ####[facility] [address] [place], [address] HCT Normal 37-47 [facility] Comment on above: Result Comment: DUPL ICATE TEST Performed By: #### L 501.2300, L100.0100 ####[facility] [address] [place], [address] HGB Normal 12.0-15.0 [facility] Comment on above: Result Comment: DUPL ICATE TEST Performed By: #### L 501.2300, L100.0100 ####[facility] [address] [place], [address] MCH Normal 27.0-32.0 [facility] Comment on above: Result Comment: DUPL ICATE TEST Performed By: #### L 501.2300, L100.0100 ####[facility] [address] [place], [address] MCHC Normal 32-36 [facility] Comment on above: Result Comment: DUPL ICATE TEST Performed By: #### L 501.2300, L100.0100 ####[facility] [address] [place], [address] MCV Normal 81-99 [facility] Comment on above: Result Comment: DUPL ICATE TEST Performed By: #### L 501.2300, L100.0100 ####[facility] [address] [place], [address] NEUT% Normal 47-70 [facility] Comment on above: Result Comment: DUPL ICATE TEST Performed By: #### L 501.2300, L100.0100 ####[facility] [address] [place], [address] PLT Normal 150-450 [facility] Comment on above: Result Comment: DUPL ICATE TEST Performed By: #### L 501.2300, L100.0100 ####[facility] [address] [place], [address] RBC Normal 4.2-5.4 [facility] Comment on above: Result Comment: DUPL ICATE TEST Performed By: #### L 501.2300, L100.0100 ####[facility] [address] [place], [address] RDW CV Normal 11.6-14.6 [facility] Comment on above: Result Comment: DUPL ICATE TEST Performed By: #### L 501.2300, L100.0100 ####[facility] [address] [place], [address] RDW SD Normal 35.1-43.9 [facility] Comment on above: Result Comment: DUPL ICATE TEST Performed By: #### L 501.2300, L100.0100 ####[facility] [address] [place], [address] WBC Normal 4.4-11.0 [facility] Comment on above: Result Comment: DUPL ICATE TEST Performed By: #### L 501.2300, L100.0100 ####[facility] [address] [place], [address] Carbon dioxide, total [Moles /volume] in Central venous bloodOrdered By: Imani Persaud on 04-26-2025 CO2 [Moles/Vol] 20.2 mmol/L Low 21.0-32.0 [facility] Chloride assayOrdered By: Jonatan Persaud on 04-26-2025 Chloride [Moles/Vol] 104 mmol/L 98-108 [facility] Comprehensive Metabolic Prof ilon 04-26-2025 Albumin [Mass/Vol] 3.9 g/dL Normal 3.5-5.0 [facility] Comment on above: Performed By: #### L 500.4050, L100.0100, L501.5200 ####[facility] [address] [place], [address] Albumin/Globulin [Mass ratio] 1.1 {ratio} Normal 0.9-2.4 [facility] Comment on above: Performed By: #### L 500.4050, L100.0100, L501.5200 ####[facility] [address] [place], [address] ALK PHOS 108 U/L High 35-104 [facility] Comment on above: Performed By: #### L 500.4050, L100.0100, L501.5200 ####[facility] [address] [place], [address] ALT [Catalytic activity/Vol] 14 U/L Normal <=34 [facility] Comment on above: Performed By: #### L 500.4050, L100.0100, L501.5200 ####[facility] [address] [place], [address] AST [Catalytic activity/Vol] 13 U/L Normal <=31 [facility] Comment on above: Performed By: #### L 500.4050, L100.0100, L501.5200 ####[facility] [address] [place], [address] Bilirubin [Mass/Vol] 0.30 mg/dL Normal 0.00-1.30 [facility] Comment on above: Performed By: #### L 500.4050, L100.0100, L501.5200 ####[facility] [address] [place], [address] BUN/CRE 15.3 RATIO Normal 10-20 [facility] Comment on above: Performed By: #### L 500.4050, L100.0100, L501.5200 ####[facility] [address] [place], [address] Calcium [Mass/Vol] 9.8 mg/dL Normal 7.6-11.0 [facility] Comment on above: Performed By: #### L 500.4050, L100.0100, L501.5200 ####[facility] [address] [place], [address] Chloride [Moles/Vol] 104 mmol/L Normal 98-108 [facility] Comment on above: Performed By: #### L 500.4050, L100.0100, L501.5200 ####[facility] [address] [place], [address] CO2 [Moles/Vol] 20.2 mmol/L Low 21.0-32.0 [facility] Comment on above: Performed By: #### L 500.4050, L100.0100, L501.5200 ####[facility] [address] [place], [address] Creatinine [Mass/Vol] 0.57 mg/dL Low 0.70-1.20 [facility] Comment on above: Performed By: #### L 500.4050, L100.0100, L501.5200 ####[facility] [address] [place], [address] ECRCL 137.98 ml/min Normal 50-250 [facility] Comment on above: Performed By: #### L 500.4050, L100.0100, L501.5200 ####[facility] [address] [place], [address] GAP 13 Normal 5-15 [facility] Comment on above: Performed By: #### L 500.4050, L100.0100, L501.5200 ####[facility] [address] [place], [address] GFR/1.73 sq M.predicted among non-blacks MDRD (S/P/Bld) [Vol rate/Area] 108 mL/min/{1.73_m2} Normal >60 [facility] Comment on above: Result Comment: mL/m in/1.73m2 CKD-EPI Creatinine Equation (2020) Performed By: #### L 500.4050, L100.0100, L501.5200 ####[facility] [address] [place], [address] Globulin (S) [Mass/Vol] 3.4 g/dL Normal 2.2-4.2 [facility] Comment on above: Performed By: #### L 500.4050, L100.0100, L501.5200 ####[facility] [address] [place], [address] Glucose [Mass/Vol] 209 mg/dL High 70-99 [facility] Comment on above: Performed By: #### L 500.4050, L100.0100, L501.5200 ####[facility] [address] [place], [address] Potassium [Moles/Vol] 3.8 mmol/L Normal 3.3-5.1 [facility] Comment on above: Performed By: #### L 500.4050, L100.0100, L501.5200 ####[facility] [address] [place], [address] Sodium [Moles/Vol] 136 mmol/L Normal 133-145 [facility] Comment on above: Performed By: #### L 500.4050, L100.0100, L501.5200 ####[facility] [address] [place], [address] T PROT 7.3 g/dL Normal 5.9-8.4 [facility] Comment on above: Performed By: #### L 500.4050, L100.0100, L501.5200 ####[facility] [address] [place], [place], [address] Urea nitrogen [Mass/Vol] 9 mg/dL Normal 4-19 [facility] Comment on above: Performed By: #### L 500.4050, L100.0100, L501.5200 ####[facility] [address] [place], [address] Eosinophil percentageOrdered By: Imani Persaud on 04-26-2025 Eosinophils/100 WBC (Bld) 0.2 % 0-5 [facility] Erythrocyte distribution wid th ratioOrdered By: Imani Persaud on 04-26-2025 Erythrocyte distribution width (RBC) [Ratio] 12.8 % 11.6-14.6 [facility] Erythrocyte distribution wid th standard deviationOrdered By: Imani Persaud on 04-26-2025 Erythrocyte distribution width (RBC) [Ratio] 39.1 fl 35.1-43.9 [facility] Glomerular filtration rate ( GFR) estimation/1.73 sq m using serum, plasma, or whole bOrdered By: Imani Persaud on 04-26-2025 GFR/1.73 sq M.predicted among non-blacks MDRD (S/P/Bld) [Vol rate/Area] 108 mL/min/{1.73_m2} >60 [facility] Comment on above: mL/min/1.73m2 CKD-EP I Creatinine Equation (2020) Hematocrit Auto (Bld) [Volum e fraction]Ordered By: Imani Persaud on 04-26-2025 Hematocrit (Bld) [Volume fraction] 38.3 % 37-47 [facility] Hemoglobin measurementOrdere d By: Imani Persaud on 04-26-2025 Hemoglobin (Bld) [Mass/Vol] 13.4 g/dL 12.0-15.0 [facility] Immature granulocytes/100 WB C Auto (Bld)Ordered By: Imani Persaud on 04-26-2025 Immature granulocytes/100 WBC (Bld) 0.200 % 0.0-0.9 [facility] Comment on above: IG% - Immature Granu locytes (promyelocytes, myelocytes and metamyelocytes) > 1% indicates that a LEFT SHIFT is Present. Laboratory - Chemistry and C hemistry - challengeOrdered By: Imani Persaud on 04-26-2025 AST [Catalytic activity/Vol] 13 U/L <32 [facility] MCV (mean corpuscular volume ) determinationOrdered By: Imani Persaud on 04-26-2025 MCV (RBC) [Entitic vol] 84.0 fL 81-99 [facility] Magnesiumon 04-26-2025 Magnesium [Mass/Vol] 2.0 mg/dL Normal 1.5-2.2 [facility] Comment on above: Performed By: #### L 500.4050, L100.0100, L501.5200 ####[facility] [address] [place], [address] Magnesium measurement (mass/ volume)Ordered By: Imani Persaud on 04-26-2025 Magnesium (Unsp spec) [Mass/Vol] 2.0 mg/dL 1.5-2.2 [facility] Mean corpuscular hemoglobin (MCH) determinationOrdered By: Imani Presaud on 04-26-2025 MCH (RBC) [Entitic mass] 29.4 pg 27.0-32.0 [facility] Mean corpuscular hemoglobin concentration (MCHC) determinationOrdered By: Imani Persaud on 04-26-2025 MCHC (RBC) [Mass/Vol] 35.0 g/dL 32-36 [facility] Mean platelet volume determi nationOrdered By: [facility] Persaud on 04-26-2025 Platelet mean volume (Bld) [Entitic vol] 10.0 fL 6.2-12.0 [facility] Monocyte percentageOrdered B y: Imani Persaud on 04-26-2025 Monocytes/100 WBC (Bld) 2.5 % 0-10 [facility] Neutrophil percentageOrdered By: [facility] Persaud on 04-26-2025 Neutrophils/100 WBC (Bld) 72.8 % High 47-70 [facility] Nucleated red blood cell per centageOrdered By: Imani Persaud on 04-26-2025 Nucleated RBC/100 WBC (Bld) [Ratio] 0 % 0-5 [facility] Oncology Visit Reporton 04-15 Oncology Visit Report Normal [facility] Phosphoruson 04-26-2025 Phosphate [Mass/Vol] 2.4 mg/dL Low 2.7-4.5 [facility] Comment on above: Performed By: #### L 501.2300, L100.0100 ####[facility] [address] [place], [address] Platelet countOrdered By: Jonatan Persaud on 04-26-2025 Platelets (Bld) [#/Vol] 126 10*3/uL Low 150-450 [facility] Potassium measurement (mass/ volume)Ordered By: Imani Persaud on 04-26-2025 Potassium (Unsp spec) [Mass/Vol] 3.8 mmol/L 3.3-5.1 [facility] RBC Auto (Bld) [#/Vol]Ordere d By: Imani Persaud on 04-26-2025 RBC (Bld) [#/Vol] 4.56 10*6/uL 4.2-5.4 [facility] Serum creatinine measurement (mass/volume)Ordered By: Imani Persaud on 04-26-2025 Creatinine [Mass/Vol] 0.57 mg/dL Low 0.70-1.20 [facility] Serum globulin measurementOr dered By: Imani Persaud on 04-26-2025 Globulin (S) [Mass/Vol] 3.4 g/dL 2.2-4.2 [facility] Serum glucose measurement (m ass/volume)Ordered By: Imani Persaud on 04-26-2025 Glucose [Mass/Vol] 209 mg/dL High 70-99 [facility] Serum or plasma alanine del rio otransferase (ALT) measurementOrdered By: Imani Persaud on 04-26-2025 ALT [Catalytic activity/Vol] 14 U/L <35 [facility] Serum or plasma albumin cass urement (mass/volume)Ordered By: Imani Persaud on 04-26-2025 Albumin [Mass/Vol] 3.9 g/dL 3.5-5.0 [facility] Serum or plasma albumin/glob ulin mass ratioOrdered By: Imani Persaud on 04-26-2025 Albumin/Globulin [Mass ratio] 1.1 {ratio} 0.9-2.4 [facility] Serum or plasma alkaline tre sphatase measurementOrdered By: Imani Persaud on 04-26-2025 ALP [Catalytic activity/Vol] 108 U/L High 35-104 [facility] Serum or plasma calcium cass urement (mass/volume)Ordered By: Imani Persaud on 04-26-2025 Calcium [Mass/Vol] 9.8 mg/dL 7.6-11.0 [facility] Serum or plasma urea nitroge n measurement (mass/volume)Ordered By: Imani Persaud on 04-26-2025 Urea nitrogen [Mass/Vol] 9 mg/dL 4-19 [facility] Sodium levelOrdered By: Jennifer Persaud on 04-26-2025 Sodium [Moles/Vol] 136 mmol/L 133-145 [facility] Total proteinOrdered By: Lonnie Persaud on 04-26-2025 Protein [Mass/Vol] 7.3 g/dL 5.9-8.4 [facility] White blood cell (WBC) count Ordered By: Imani Persaud on 04-26-2025 WBC (Bld) [#/Vol] 4.8 10*3/uL 4.4-11.0 [facility] Absolute lymphocyte countOrd ered By: Imani Persaud on 04-19-2025 Lymphocytes Auto (Unsp spec) [#/Vol] 1.21 10*3/uL 0.83-4.51 [facility] Absolute neutrophil countOrd ered By: Imani Persaud on 04-19-2025 Neutrophils (Bld) [#/Vol] 7.4 10*3/uL 2.0-7.7 [facility] Anion gap in Serum or Plasma Ordered By: Imani Persaud on 04-19-2025 Anion gap [Moles/Vol] 14 mmol/L 5-15 [facility] Automated lymphocyte count a s percentage of total leukocytesOrdered By: [facility] Cori on 04-19-2025 Lymphocytes/100 WBC Auto (Unsp spec) 12.7 % Low 19-41 [facility] BUN/creatinine ratioOrdered By: [facility] Cori on 04-19-2025 Urea nitrogen/Creatinine [Mass ratio] 19.6 mg/mg 10-20 [facility] Basophil percentageOrdered B y: Imani Cori on 04-19-2025 Basophils/100 WBC (Bld) 0.3 % 0-1 [facility] Bilirubin, totalOrdered By: [facility] Cori on 04-19-2025 Bilirubin [Mass/Vol] 0.33 mg/dL 0.00-1.30 [facility] CBC W/Diff, Automatedon Absolute Lymph 1.21 X10 3/uL Normal 0.83-4.51 [facility] Comment on above: Performed By: #### L 501.5200, L500.4050, L100.0100 ####[facility] [address] [place], [address] Absolute Neut 7.4 X10 3/uL Normal 2.0-7.7 [facility] Comment on above: Performed By: #### L 501.5200, L500.4050, L100.0100 ####[facility] [address] [place], [address] Basophils/100 WBC (Bld) 0.3 % Normal 0-1 [facility] Comment on above: Performed By: #### L 501.5200, L500.4050, L100.0100 ####[facility] [address] [place], [address] Eosinophils/100 WBC (Bld) 0.2 % Normal 0-5 [facility] Comment on above: Performed By: #### L 501.5200, L500.4050, L100.0100 ####[facility] [address] [place], [address] Erythrocyte distribution width (RBC) [Ratio] 13.8 % Normal 11.6-14.6 [facility] Comment on above: Performed By: #### L 501.5200, L500.4050, L100.0100 ####[facility] [address] [place], [address] Hematocrit (Bld) [Volume fraction] 42.9 % Normal 37-47 [facility] Comment on above: Performed By: #### L 501.5200, L500.4050, L100.0100 ####[facility] [address] [place], [address] Hemoglobin (Bld) [Mass/Vol] 14.6 g/dL Normal 12.0-15.0 [facility] Comment on above: Performed By: #### L 501.5200, L500.4050, L100.0100 ####[facility] [address] [place], [address] IG% 0.500 Normal 0.0-0.9 [facility] Comment on above: Result Comment: IG% - Immature Granulocytes (promyelocytes, myelocytes andmetamyelocytes) > 1% indicates that a LEFT SHIFT is Present. Performed By: #### L 501.5200, L500.4050, L100.0100 ####[facility] [address] [place], [address] Lymphocytes/100 WBC (Bld) 12.7 % Low 19-41 [facility] Comment on above: Performed By: #### L 501.5200, L500.4050, L100.0100 ####[facility] [address] [place], [address] MCH (RBC) [Entitic mass] 29.1 pg Normal 27.0-32.0 [facility] Comment on above: Performed By: #### L 501.5200, L500.4050, L100.0100 ####[facility] [address] [place], [address] MCHC (RBC) [Mass/Vol] 34.0 g/dL Normal 32-36 [facility] Comment on above: Performed By: #### L 501.5200, L500.4050, L100.0100 ####[facility] [address] [place], [address] MCV (RBC) [Entitic vol] 85.5 fL Normal 81-99 [facility] Comment on above: Performed By: #### L 501.5200, L500.4050, L100.0100 ####[facility] [address] [place], [address] Monocytes/100 WBC (Bld) 8.1 % Normal 0-10 [facility] Comment on above: Performed By: #### L 501.5200, L500.4050, L100.0100 ####[facility] [address] [place], [address] Neutrophils/100 WBC (Bld) 78.2 % High 47-70 [facility] Comment on above: Performed By: #### L 501.5200, L500.4050, L100.0100 ####[facility] [address] [place], [address] Nucleated RBC (Bld) [#/Vol] 0 10*3/uL Normal 0-5 [facility] Comment on above: Performed By: #### L 501.5200, L500.4050, L100.0100 ####[facility] [address] [place], [address] Platelet mean volume (Bld) [Entitic vol] 9.7 fL Normal 6.2-12.0 [facility] Comment on above: Performed By: #### L 501.5200, L500.4050, L100.0100 ####[facility] [address] [place], [address] Platelets (Bld) [#/Vol] 226 10*3/uL Normal 150-450 [facility] Comment on above: Performed By: #### L 501.5200, L500.4050, L100.0100 ####[facility] [address] [place], [address] RBC (Bld) [#/Vol] 5.02 10*6/uL Normal 4.2-5.4 [facility] Comment on above: Performed By: #### L 501.5200, L500.4050, L100.0100 ####[facility] [address] [place], [address] RDW SD 43.0 fl Normal 35.1-43.9 [facility] Comment on above: Performed By: #### L 501.5200, L500.4050, L100.0100 ####[facility] [address] [place], [address] WBC (Bld) [#/Vol] 9.5 10*3/uL Normal 4.4-11.0 [facility] Comment on above: Performed By: #### L 501.5200, L500.4050, L100.0100 ####[facility] [address] [place], [address] Carbon dioxide, total [Moles /volume] in Central venous bloodOrdered By: Imani Persaud on 04-19-2025 CO2 [Moles/Vol] 18.6 mmol/L Low 21.0-32.0 [facility] Chloride assayOrdered By: Jonatan Persaud on 04-19-2025 Chloride [Moles/Vol] 105 mmol/L 98-108 [facility] Comprehensive Metabolic Prof ilon 04-19-2025 Albumin [Mass/Vol] 4.0 g/dL Normal 3.5-5.0 [facility] Comment on above: Performed By: #### L 501.5200, L500.4050, L100.0100 ####[facility] [address] [place], [address] Albumin/Globulin [Mass ratio] 1.1 {ratio} Normal 0.9-2.4 [facility] Comment on above: Performed By: #### L 501.5200, L500.4050, L100.0100 ####[facility] [address] [place], [address] ALK PHOS 115 U/L High 35-104 [facility] Comment on above: Performed By: #### L 501.5200, L500.4050, L100.0100 ####[facility] [address] [place], [address] ALT [Catalytic activity/Vol] 14 U/L Normal <=34 [facility] Comment on above: Performed By: #### L 501.5200, L500.4050, L100.0100 ####[facility] [address] [place], [address] AST [Catalytic activity/Vol] 16 U/L Normal <=31 [facility] Comment on above: Performed By: #### L 501.5200, L500.4050, L100.0100 ####[facility] [address] [place], [address] Bilirubin [Mass/Vol] 0.33 mg/dL Normal 0.00-1.30 [facility] Comment on above: Performed By: #### L 501.5200, L500.4050, L100.0100 ####[facility] [address] [place], [address] BUN/CRE 19.6 RATIO Normal 10-20 [facility] Comment on above: Performed By: #### L 501.5200, L500.4050, L100.0100 ####[facility] [address] [place], [address] Calcium [Mass/Vol] 9.6 mg/dL Normal 7.6-11.0 [facility] Comment on above: Performed By: #### L 501.5200, L500.4050, L100.0100 ####[facility] [address] [place], [address] Chloride [Moles/Vol] 105 mmol/L Normal 98-108 [facility] Comment on above: Performed By: #### L 501.5200, L500.4050, L100.0100 ####[facility] [address] [place], [address] CO2 [Moles/Vol] 18.6 mmol/L Low 21.0-32.0 [facility] Comment on above: Performed By: #### L 501.5200, L500.4050, L100.0100 ####[facility] [address] [place], [address] Creatinine [Mass/Vol] 0.59 mg/dL Low 0.70-1.20 [facility] Comment on above: Performed By: #### L 501.5200, L500.4050, L100.0100 ####[facility] [address] [place], [address] ECRCL 133.85 ml/min Normal 50-250 [facility] Comment on above: Performed By: #### L 501.5200, L500.4050, L100.0100 ####[facility] [address] [place], [address] GAP 14 Normal 5-15 [facility] Comment on above: Performed By: #### L 501.5200, L500.4050, L100.0100 ####[facility] [address] [place], [address] GFR/1.73 sq M.predicted among non-blacks MDRD (S/P/Bld) [Vol rate/Area] 107 mL/min/{1.73_m2} Normal >60 [facility] Comment on above: Result Comment: mL/m in/1.73m2 CKD-EPI Creatinine Equation (2020) Performed By: #### L 501.5200, L500.4050, L100.0100 ####[facility] [address] [place], [address] Globulin (S) [Mass/Vol] 3.8 g/dL Normal 2.2-4.2 [facility] Comment on above: Performed By: #### L 501.5200, L500.4050, L100.0100 ####[facility] [address] [place], [address] Glucose [Mass/Vol] 161 mg/dL High 70-99 [facility] Comment on above: Performed By: #### L 501.5200, L500.4050, L100.0100 ####[facility] [address] [place], [address] Potassium [Moles/Vol] 4.0 mmol/L Normal 3.3-5.1 [facility] Comment on above: Performed By: #### L 501.5200, L500.4050, L100.0100 ####[facility] [address] [place], [address] Sodium [Moles/Vol] 138 mmol/L Normal 133-145 [facility] Comment on above: Performed By: #### L 501.5200, L500.4050, L100.0100 ####[facility] [address] [place], [address] T PROT 7.7 g/dL Normal 5.9-8.4 [facility] Comment on above: Performed By: #### L 501.5200, L500.4050, L100.0100 ####[facility] [address] [place], [place], [address] Urea nitrogen [Mass/Vol] 12 mg/dL Normal 4-19 [facility] Comment on above: Performed By: #### L 501.5200, L500.4050, L100.0100 ####[facility] [address] [place], [address] Eosinophil percentageOrdered By: Imani Persaud on 04-19-2025 Eosinophils/100 WBC (Bld) 0.2 % 0-5 [facility] Erythrocyte distribution wid th ratioOrdered By: [facility] Pers[facility] on 04-19-2025 Erythrocyte distribution width (RBC) [Ratio] 13.8 % 11.6-14.6 [facility] Erythrocyte distribution wid th standard deviationOrdered By: [facility] Persaud on 04-19-2025 Erythrocyte distribution width (RBC) [Ratio] 43.0 fl 35.1-43.9 [facility] Glomerular filtration rate ( GFR) estimation/1.73 sq m using serum, plasma, or whole bOrdered By: [facility] Persaud on 04-19-2025 GFR/1.73 sq M.predicted among non-blacks MDRD (S/P/Bld) [Vol rate/Area] 107 mL/min/{1.73_m2} >60 [facility] Comment on above: mL/min/1.73m2 CKD-EP I Creatinine Equation (2020) Hematocrit Auto (Bld) [Volum e fraction]Ordered By: Imani Persaud on 04-19-2025 Hematocrit (Bld) [Volume fraction] 42.9 % 37-47 [facility] Hemoglobin measurementOrdere d By: Imani Persaud on 04-19-2025 Hemoglobin (Bld) [Mass/Vol] 14.6 g/dL 12.0-15.0 [facility] Immature granulocytes/100 WB C Auto (Bld)Ordered By: Imani Persaud on 04-19-2025 Immature granulocytes/100 WBC (Bld) 0.500 % 0.0-0.9 [facility] Comment on above: IG% - Immature Granu locytes (promyelocytes, myelocytes and metamyelocytes) > 1% indicates that a LEFT SHIFT is Present. Laboratory - Chemistry and C hemistry - challengeOrdered By: Imani Persaud on 04-19-2025 AST [Catalytic activity/Vol] 16 U/L <32 [facility] MCV (mean corpuscular volume ) determinationOrdered By: Imani Persaud on 04-19-2025 MCV (RBC) [Entitic vol] 85.5 fL 81-99 [facility] Magnesiumon 04-19-2025 Magnesium [Mass/Vol] 2.1 mg/dL Normal 1.5-2.2 [facility] Comment on above: Performed By: #### L 501.5200, L500.4050, L100.0100 ####[facility] [address] [place], [address] Magnesium measurement (mass/ volume)Ordered By: Imani Persaud on 04-19-2025 Magnesium (Unsp spec) [Mass/Vol] 2.1 mg/dL 1.5-2.2 [facility] Mean corpuscular hemoglobin (MCH) determinationOrdered By: [facility] Pers[facility] on 04-19-2025 MCH (RBC) [Entitic mass] 29.1 pg 27.0-32.0 [facility] Mean corpuscular hemoglobin concentration (MCHC) determinationOrdered By: Imani Persaud on 04-19-2025 MCHC (RBC) [Mass/Vol] 34.0 g/dL 32-36 [facility] Mean platelet volume determi nationOrdered By: Imani Persaud on 04-19-2025 Platelet mean volume (Bld) [Entitic vol] 9.7 fL 6.2-12.0 [facility] Monocyte percentageOrdered B y: Imani Persaud on 04-19-2025 Monocytes/100 WBC (Bld) 8.1 % 0-10 [facility] Neutrophil percentageOrdered By: [facility] Pers[facility] on 04-19-2025 Neutrophils/100 WBC (Bld) 78.2 % High 47-70 [facility] Nucleated red blood cell per centageOrdered By: Imani Persaud on 04-19-2025 Nucleated RBC/100 WBC (Bld) [Ratio] 0 % 0-5 [facility] Oncology Visit Reporton 06-0 Oncology Visit Report Normal [facility] Platelet countOrdered By: Jonatan Persaud on 04-19-2025 Platelets (Bld) [#/Vol] 226 10*3/uL 150-450 [facility] Potassium measurement (mass/ volume)Ordered By: Imani Persaud on 04-19-2025 Potassium (Unsp spec) [Mass/Vol] 4.0 mmol/L 3.3-5.1 [facility] RBC Auto (Bld) [#/Vol]Ordere d By: Imani Persaud on 04-19-2025 RBC (Bld) [#/Vol] 5.02 10*6/uL 4.2-5.4 [facility] Serum creatinine measurement (mass/volume)Ordered By: Imani Persaud on 04-19-2025 Creatinine [Mass/Vol] 0.59 mg/dL Low 0.70-1.20 [facility] Serum globulin measurementOr dered By: Imani Persaud on 04-19-2025 Globulin (S) [Mass/Vol] 3.8 g/dL 2.2-4.2 [facility] Serum glucose measurement (m ass/volume)Ordered By: Imani Persaud on 04-19-2025 Glucose [Mass/Vol] 161 mg/dL High 70-99 [facility] Serum or plasma alanine del rio otransferase (ALT) measurementOrdered By: Imani Persaud on 04-19-2025 ALT [Catalytic activity/Vol] 14 U/L <35 [facility] Serum or plasma albumin cass urement (mass/volume)Ordered By: Imani Persaud on 04-19-2025 Albumin [Mass/Vol] 4.0 g/dL 3.5-5.0 [facility] Serum or plasma albumin/glob ulin mass ratioOrdered By: Imani Persaud on 04-19-2025 Albumin/Globulin [Mass ratio] 1.1 {ratio} 0.9-2.4 [facility] Serum or plasma alkaline tre sphatase measurementOrdered By: Imani Persaud on 04-19-2025 ALP [Catalytic activity/Vol] 115 U/L High 35-104 [facility] Serum or plasma calcium cass urement (mass/volume)Ordered By: Imani Cori on 04-19-2025 Calcium [Mass/Vol] 9.6 mg/dL 7.6-11.0 [facility] Serum or plasma urea nitroge n measurement (mass/volume)Ordered By: Imani Persaud on 04-19-2025 Urea nitrogen [Mass/Vol] 12 mg/dL 4- [facility] Sodium levelOrdered By: Jennifer roth Cori on 04-19-2025 Sodium [Moles/Vol] 138 mmol/L 133-145 [facility] Total proteinOrdered By: Lonnie Persaud on 04-19-2025 Protein [Mass/Vol] 7.7 g/dL 5.9-8.4 [facility] White blood cell (WBC) count Ordered By: Imani Persaud on 04-19-2025 WBC (Bld) [#/Vol] 9.5 10*3/uL 4.4-11.0 [facility] Cardiology Visit Reporton Cardiology Visit Report Normal [facility] Oncology Visit Reporton 03-16 Oncology Visit Report Normal [facility] CXR for Line Placementon CXR for Line Placement Normal [facility] Discharge Instructionon 03-15 Discharge Instruction [facility] MR/POSTOP.ANEon 04-02-2025 MR/POSTOP.ANE Normal [facility] MR/[id number] 04-02-2025 MR/POSTOPAN2 [facility] Operative Reporton Operative Report Normal [facility] MR/PAT.ANEon 03-28-2025 MR/PAT.ANE [facility] Oncology Visit Reporton 03-15 Oncology Visit Report Normal [facility] SURG PATH REQUESTon 03-27-20 Case Report Normal [facility] Comment on above: Result Comment: Surg ical Pathology Report Case: [id number] Authorizing Provider: Christopher Cunningham MD Collected: 03/27/2025 11:33 AM Ordering Location: [facility] Received: 03/27/2025 11:33 AM [place] Pathologist: Pablo Valentine MD Specimen: SURG PATH, Uterus, bilateral fallopian tubes, right ovary Performed By: #### S URGP #### [facility] (DEFAULT) [address] [place] [address] Diagnosis Comments There is no histolog ic evidence of any malignancy in this 2021 specimen. A subsequent 2024 specimen (to be reviewed at [facility] as [id number]) demonstrates a high grade malignancy. [facility] Comment on above: Performed By: #### S URGP #### [facility] (DEFAULT) [address] [place] [address] Gross Description [facility] Comment on above: Result Comment: The following material(s) are received from [facility], [address] [place] [address] with an identifying Surgical Pathology Report: 16 H&E slides labeled [id number]. Outside materials are returned in 60 days under separate cover with our number recorded on them. Grosser for this case was: [place] Performed By: #### S URGP #### [facility] (DEFAULT) [address] [place] [address] Microscopic Description A microscopic examination was performed. [facility] Comment on above: Performed By: #### S URGP #### [facility] (DEFAULT) [address] [place] [address] Pathologic Diagnosis [facility] Comment on above: Result Comment: Outs erika Slides [id number] (05/28/22) Uterus with bilateral fallopian tubes and right ovary, hysterectomy with right salpingo-oophorectomy and left salpingectomy: Cervix with nabothian cysts. Inactive focally-attenuated endometrium with pseudodecidual change. Myometrium with leiomyomata. Uterine serosa with no pathological data. Fallopian tubes with benign paratubal cysts. Ovary with cortical inclusion cysts. at 1200 EDT Performed By: #### S URGP #### [facility] (DEFAULT) [address] [place] [address] Professional Interpretation Performed at: [facility] Comment on above: Result Comment: [facility] For Immediate Release to Patient's MyChart? Yes [address] [address] Performed By: #### S URGP #### [facility] (DEFAULT) [address] [place] [address] COMPREHENSIVE TUMOR GENOMIC PROFILE WITH MSI STATUS, SIGN OUTon 03-26-2025 Block/ A2/[id number] (01/26/25) [facility] Comment on above: Performed By: #### N GS2 #### [facility] (DEFAULT) [address] [address] Comment Translocation status and copy number findings are based on NGS on tumor genomic DNA and may not correlate with findings by other methods (e.g. FISH or transcript analysis). [facility] Comment on above: Performed By: #### N GS2 #### [facility] (DEFAULT) [address] [address] Copy Number Findings See interpretation above. [facility] Comment on above: Performed By: #### N GS2 #### [facility] (DEFAULT) [address] [address] CTP Indication Other Normal [facility] Comment on above: Performed By: #### N GS2 #### [facility] (DEFAULT) [address] [place] [address] CTP MSI Status Stable Low [facility] Comment on above: Performed By: #### N GS2 #### [facility] (DEFAULT) [address] [address] CTP Mutation Level Low Normal [facility] Comment on above: Performed By: #### N GS2 #### [facility] (DEFAULT) [address] [address] CTPNGS Report/Interpretation [facility] Comment on above: Result Comment: [facility] Comprehensive Tumor Panel Patient Information Specimen Information Name: Uzma Mcdonald Source: Pelvis, mass, excision Order ID: [id number] 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 Extensive genomic complexity noted including homozygous deletion of PDCD1 and adjacent [id number] sequences, among many chromosomal segmental losses/gains. Comment: Low tumor mutation burden with high genomic complexity is consistent with a high-grade sarcoma. Correlate with pathology report for final diagnosis. Electronically Signed By: Girish Wolfe MD, PhD Clinically Significant or Potentially Significant Tumor-Associated Variants Gene Alteration Genomic Coordinates VAF Type of Alteration Significance* Therapeutic Implications Additional Information TP53 p.Y220H c.658T>C [id number]:A:G 96.8% Substitution - Missense Tier 2, Level C Evidence gnomAD: 0.0004% ClinVar: [id number] Biomarker Status Biomarker Result Therapeutic Implications Additional [...] functional data derived from the CKB database (https://HAM-ITb.Demo Lesson.org) or [employer] annotation. For likely germline calls, associations are [...] below for this panel are described at pathology.[facility]/CTP Mutation level: Reported per tumor type [...] of Alteration Significance* Features Additional Information CDK12 p.H6848O c.3690C>G [id number]:C:G 4.9% Substitution - Missense Tier 3 gnomAD: [...] Performed By: #### N GS2 #### [facility] (DEFAULT) [address] [place] [address] Method/Limitations: Normal [facility] Comment on above: Result Comment: Hist [...] at 94 genomic regions as assessed by mSINewmerixS software. MSI is reported as positive (which approximately corresponds to MSI-high status) or negative. MSI-low is not determined in this assay. Discordances with PCR-based methods may occur in up to 5% of cases. This assay provides limited DNA-based translocation detection using intron tiling of selected targets (see website for list). Detection sensitivity, using [employer] and Planand[employer] software, is approximately 70% compared to FISH. [...] review of morphologic/histologic material, if available. See [email or web address]/CHP for gene list and the methodology and limitations for other tumor genomic features reported This test was developed and its performance determined by the [facility] the [facility] at [address] [place] [address] under the medical direction of Jose Yao [...] Performed By: #### N GS2 #### [facility] (DEFAULT) [address] [address] Reviewed by Girish Wolfe MD [facility] Comment on above: Performed By: #### N GS2 #### [facility] (DEFAULT) [address] [address] Tissue Source Pelvis, mass, excision [facility] Comment on above: Performed By: #### N GS2 #### [facility] (DEFAULT) [address] [address] Translocation Status No pathogenic chrom osomal translocations detected in limited panel assessed by intron tiling in tumor genomic DNA. [facility] Comment on above: Performed By: #### N GS2 #### [facility] (DEFAULT) [address] [address] [address] Chest, Abd, Pel w/Contras ton 03-26-2025 CT Chest, Abd, Pel w/Contrast [facility] SURG PATH REQUESTon 03-26-20 Addendum [facility] Comment on above: Result Comment: This addendum is issued to report on the GU38-MCA ER quant, and HI Quant stains were performed on block A2. Positive: ER (90%), HI (60%) Negative:SS18 Prior diagnosis remains unchanged. Addendum electronically signed by Alexandra Lan MD on 05/08/2025 at 1211 EDT Performed By: #### S URGP #### [facility] (DEFAULT) [address] [address] Case Report [facility] Comment on above: Result Comment: Surg ical Pathology Report Case: [id number] Authorizing Provider: Christopher Cunningham MD Collected: 03/26/2025 11:00 AM [facility]ing [facility] Received: 03/26/2025 10:59 AM [facility] Pathologist: Alexandra Lan MD Specimen: SURG PATH, A) Pelvic, pelvic mass; B) Pelvic, pelvic mass #2; C) Omentum, resection, omentum; D) Ovary, left, left ovary Performed By: #### S URGP #### [facility] (DEFAULT) [address] [place] [address] Diagnosis Comments Normal [facility] Comment on above: Performed By: #### S URGP #### [facility] (DEFAULT) [address] [place] [address] Gross Description Normal [facility] Comment on above: Result Comment: The following material(s) are received from [facility], [address] [place] [address] with an identifying Surgical Pathology Report: 28 H&E and 8 non-H&E slides labeled [id number]. The [facility] Surgical Pathology Report [id number] and [facility] Surgical Pathology Report [id number] are included for review. Subsequently received from the same facility on March 29, 2025, is/are 1 paraffin block(s) marked [id number] (A7), which is/are submitted to [facility] Histology/IHC Laboratory for re-cutting and additional staining. Outside materials are returned in 60 days under separate cover with our number recorded on them. Grosser for this case was: [place] Performed By: #### S URGP #### [facility] (DEFAULT) [address] [place] [id number] Microscopic Description Normal [facility] Comment on above: Result Comment: A mi croscopic examination was performed. All controls show appropriate reactivity. All immunohistochemistry (IHC), in situ hybridization (DOUGLAS), and histochemical tests were developed by and are performed at the [facility] Clinical Laboratory, Histology and IHC Lab, [address] [place] [address], [place] [address]. All Immunofluorescent (IF) tests were developed by and are performed at the [facility] Clinical Laboratory, Renal Division, [address] [place], [place] [id number]. All tests reported here, except for PD-L1, have not been cleared by or approved by the US Food and Drug Administration (FDA). The laboratory is regulated under CLIA as qualified to perform high-complexity testing. The tests are used for clinical purposes. They should not be regarded as investigational or for research. Performed By: #### S URGP #### [facility] (DEFAULT) [address] [place] [address] Pathologic Diagnosis Normal [facility] Comment on above: Result Comment: Outs erika Slides [id number] (01/26/25) A. 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 Extensive genomic complexity noted including homozygous deletion of PDCD1 and adjacent pms8m00-81 sequences, among many chromosomal segmental losses/gains. Low [...] of uterine leiomyomas. Dr. Grijalva has reviewed dealer compliance representative slides. at 2313 EDT Performed By: #### S URGP #### [facility] (DEFAULT) [address] [place] [address] Professional Interpretation Performed at: Normal [facility] Comment on above: Result Comment: [facility] For Immediate Release to Patient's MyChart? Yes [address] [address] Performed By: #### S URGP #### [facility] (DEFAULT) [address] [place] [address] Surgery Visit Reporton 03-26 Surgery Visit Report Normal [facility] Oncology Visit Reporton 02-13 Oncology Visit Report Normal [facility] 36on 02-16-2025 36 Pt called with path, to see Med Onc . Rec chemo. To see after chemo to discuss metalsmith surveillance [facility] 36on 02-15-20[address] Antonio willard at [phone] via rightfax. Confirmation scanned within media [facility] 36 ----- Message from Reny Grady MD sent at 02/14/2025 3:41 PM EDT ----- Plz fax to Dr Lopez at 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 Dr Grady requested they send patient back to see him after chemo is completed. He does not need to see her before then. Called patient and informed her of same. She verbalized understanding and agreement with plan. [facility] 36 Mail box full [facility] Office Visiton 02-14-2025 Follow-up visit [id number] Kristina Mcdonald idi 1970 F Date Provider Department Center 02/14/2025 [address] [facility] [employer] None Family History Problem Relation Age of Onset Kidney disease Father Breast cancer Father's Sister Comments: late 50's, early 60's Family Status - Relation Status Age at Father Father's Sister Alive Level of Service:17494 HI OFFICE/OUTPATIENT ESTABLISHED LOW MDM 20 MIN Reason for Visit and Comments: Post-op Visit [559] - 2 wks IPO Normal [facility] Progress Noteon 02-14-2025 Progress Note GYNECOLOGIC ONCOLOGY [...] addendum. This case was sent to the [facility] with the above diagnosis for parts A and B rendered by Dr. Pierce. Below is Dr. Pierce's comment. 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 Immunochemical stains performed by [facility] and submitted for review show that the tumor cells are positive for SMA and negative for desmin, STAT6, pancytokeratin, S100 and CD34. Immunochemical stains were performed at the [facility] with the following results: - Desmin: [...] pt would like to get chemo at [facility] infusion center near her house - Discussed some chemo basics (infection prevention) - Diflucan and nystatin cream sent to pt's pharmacy for rash, educated pt on use - Ok to resume normal activities, advised her to ease back into things I explained diagnosis and treatment plan; patient expressed understanding and was in agreement with the plan. Gladis Herbert APRN - JAIRO I personally spent over half of (more content not included)... Normal [facility] SURGICAL PATHOLOGY REFERENCE LAB CONSULTon 02-08-2025 AP DISCLAIMER Normal [facility] Comment on above: Order Comment: Speci men Type: FORMALIN-FIXED PARAFFIN-EMBEDDED TISSUE SPECIMENOrdering Facility: [facility] Address: C/O [facility], DEPT OF PATHOLOGY, [place] [address] Result Comment: Abdullahi kahn Developed Test (LDT) Disclaimer: Performance characteristics of immunohistochemical, immunofluorescent, and chromogenic in-situ hybridization tests have been determined by the performing laboratory within [facility]'s [facility] Pathology and Laboratory Medicine Department ([facility], [facility], [facility], [facility], [facility], [facility], or [facility]) in a manner consistent with CLIA requirements. One or more of these tests may not have been cleared or approved by the FDA. [facility] is regulated under CLIA as qualified to perform high-complexity testing. These tests are used for clinical purposes. These should not be regarded as investigational or for research. Positive and negative controls stain appropriately. Performed By: #### L [id number] ####[facility] LABCLIA [id number] [place] [address] [place] CASE REPORT Normal [facility] Comment on above: Order Comment: Speci men Type: FORMALIN-FIXED PARAFFIN-EMBEDDED TISSUE SPECIMENOrdering Facility: [facility] Address: C/O [facility], DEPT OF PATHOLOGY, [place] [id number] Result Comment: S[facility] Pathology Report Case: [id number] Authorizing Provider: Wolf Thorpe MD Collected: 02/08/2025 09:34 PM Ordering Location: [facility] Main Received: 02/08/2025 09:33 PM [facility] Pathologist: Aviva Pierce MD Specimen: Block(s) and/or Slide(s), 36 SLIDES / 1 BLOCK [id number]; A3 Performed By: #### L [id number] ####[facility] LABIA [id number] [address] CLINICAL HISTORY CONSULT REQUESTED Normal C [facility] Comment on above: Order Comment: Speci men Type: FORMALIN-FIXED PARAFFIN-EMBEDDED TISSUE SPECIMENOrdering Facility: [facility] Address: [facility], DEPT OF PATHOLOGY, [place] [address] Performed By: #### L [id number] ####[facility] LABIA [id number] [address] DIAGNOSIS COMMENT [facility] Comment on above: Order Comment: Speci men Type: FORMALIN-FIXED PARAFFIN-EMBEDDED TISSUE SPECIMENOrdering Facility: [facility] Address: [facility], DEPT OF PATHOLOGY, [place] [address] Result Comment: Than k you for the [...] CD34. Immunohistochemical stains were performed at the [facility] with the following results: - Desmin: [...] with the diagnosis. Performed By: #### L [id number] ####[facility] LABCLIA [id number] [address] [address] [facility] FINAL DIAGNOSIS Normal [facility] Comment on above: Order Comment: Speci men Type: FORMALIN-FIXED PARAFFIN-EMBEDDED TISSUE SPECIMENOrdering Facility: [facility] Address: [facility], DEPT OF PATHOLOGY, [place] [address] Result Comment: Revi ew of slides from [facility] ([id number], 01/26/2025) A, B. Pelvic mass, excision: High-grade sarcoma with myogenic differentiation, favor leiomyosarcoma; see comment. at 1504 EDT Performed By: #### L [id number] ####[facility] LABCLIA [id number] [address] FINAL PERFORMING LAB Normal [facility] Comment on above: Order Comment: Speci men Type: FORMALIN-FIXED PARAFFIN-EMBEDDED TISSUE SPECIMENOrdering Facility: [facility] Address: [facility], DEPT OF PATHOLOGY, [place] [address] Result Comment: Diag nostic interpretation performed at: [facility], [address] [address] CLIA# [id number] Dye Box Operator: Juan Padilla MD Performed By: #### L [id number] ####[facility] LABCLIA [id number] [address] [address] [facility] 30on 01-27-2025 30 Problem: Pain - Adul t Goal: Verbalizes/displays adequate comfort level or baseline comfort level Outcome: Progressing Problem: Safety - Adult Goal: Free from fall injury Outcome: Progressing Problem: Discharge Planning Goal: Discharge to home or other facility with appropriate resources Outcome: Progressing Normal [facility] CBC (HEMOGRAM)on 01-27-2025 Erythrocyte distribution width (RBC) [Ratio] 13.0 % Normal 11.5-15.0 [facility] Comment on above: Performed By: #### L [id number] #### Shake Maker: KYREE WEATHERS ([phone]) [facility]) [address] [place] [address] Hematocrit (Bld) [Volume fraction] 28.0 % Low 35.0-47.0 [facility] Comment on above: Performed By: #### L [id number] #### Shake Maker: KYREE WEATHERS ([id number]) [address] Hemoglobin (Bld) [Mass/Vol] 9.4 g/dL Low 11.7-16.0 [facility] Comment on above: Performed By: #### L [id number] #### Shake Maker: KYREE WEATHERS ([id number]) [facility]) [address] [place] [address] MCH (RBC) [Entitic mass] 29.2 pg Normal 26.0-34.0 [facility] Comment on above: Performed By: #### L [id number] #### Shake Maker: KYREE WEATHERS ([id number]) [facility]) [address] [place] [address] MCHC 33.6 % Normal 30.5-36.0 [facility] Comment on above: Performed By: #### L [id number] #### Shake Maker: KYREE WEATHERS ([id number]) [address] MCV (RBC) [Entitic vol] 87.0 fL Normal 77.0-99.0 [facility] Comment on above: Performed By: #### L [id number] #### Shake Maker: KYREE WEATHERS ([id number]) [facility] ([facility]) [address] [place] [address] Platelet mean volume (Bld) [Entitic vol] 10.4 fL Normal 9.0-12.7 [facility] Comment on above: Performed By: #### L [id number] #### Shake Maker: KYREE WEATHERS ([id number]) [facility] ([facility]) [address] [place] [address] Platelets (Bld) [#/Vol] 200 10*3/uL Normal 140-440 [facility] Comment on above: Performed By: #### L [id number] #### Shake Maker: KYREE WEATHERS ([id number]) [facility] ([facility]) [address] [place] [address] RBC (Bld) [#/Vol] 3.22 10*6/uL Low 3.80-5.20 [facility] Comment on above: Performed By: #### L [id number] #### Shake Maker: KYREE WEATHERS ([id number]) [facility] ([facility]) [address] [place] [address] WBC (Bld) [#/Vol] 10.4 10*3/uL Normal 3.6-10.7 [facility] Comment on above: Performed By: #### L [id number] #### Shake Maker: KYREE WEATHERS ([id number]) [facility]) [address] [place] [address] CBC panel Auto (Bld)Ordered By: Theo Lopez on 01-27-2025 Erythrocyte distribution width (RBC) [Ratio] 13 % 11.5 - 15.0 % [facility] Hematocrit (Bld) [Volume fraction] 28 % Low 35.0 - 47.0 % [facility] Hemoglobin (Bld) [Mass/Vol] 9.4 g/dL Low 11.7 - 16.0 g/dL [facility] Interpretation and review of laboratory results Abnormal [facility] MCH (RBC) [Entitic mass] 29.2 pg 26.0 - 34.0 pg [facility] MCHC (RBC) [Mass/Vol] 33.6 % 30.5 - 36.0 % [facility] MCV (RBC) [Entitic vol] 87 fL 77.0 - 99.0 fL [place] Platelet mean volume (Bld) [Entitic vol] 10.4 fL 9.0 - 12.7 fL [facility] Platelets (Bld) [#/Vol] 200 10*3/uL 140 - 440 10*3/uL [facility] RBC (Bld) [#/Vol] 3.22 10*6/uL Low 3.80 - 5.2 0 10*6/uL [facility] WBC (Bld) [#/Vol] 10.4 10*3/uL 3.6 - 10.7 10*3/uL [facility] No Panel InformationOrdered By: Linus Cain on 01-27-2025 P [place] 53 degrees [place] Work Phone: HI Interval 185 ms [place] Work Phone: QRS [place] 56 degrees [place] Work Phone: QRSD Interval 76 ms [place] Work Phone: QT Interval 372 ms [place] Work Phone: QTC Interval 418 ms [place] Work Phone: T Wave [place] 53 degrees [place] Work Phone: [place] Work Phone: No Panel Informationon 01-27 Linus Cain MD - 01/27/2025 IMPRESSION: Sinus rhythm Low voltage, precordial leads Poor R wave progression Electronically Signed On 01-27-2025 11:41:44 EDT by Linus Cain [facility] Progress Noteon 01-27-2025 Progress Note ------ -- [...] follow-up, questions answered. Sumaya Marroquin MD -- [employer]INTING [employer] Progress Note Please page the [facility] [employer] ONC Call RES group via Secure Chat [...] 75 mg, 75 mg, Oral, Daily, Wendie Thompson, famotidine (Pepcid) tablet 20 mg, 20 mg, [...] QTC Interval 01/26/2025 418 ms Final P [place] 01/26/2025 53 degrees Final QRS [place] 01/26/2025 56 degrees Final T Wave [place] 01/26/2025 53 degrees Final HI Interval 01/26/2025 185 ms Final Auto WBC [...] Final Platele (more content not included)... Normal [facility] Vital signsOrdered By: Alina Cain on 01-27-2025 Heart rate 76 /min bpm [facility] Work Phone: 30on 01-26-2025 30 Problem: Pain - Adul t Goal: Verbalizes/displays adequate comfort level or baseline comfort level Outcome: Progressing Problem: Safety - Adult Goal: Free from fall injury Outcome: Progressing Problem: Discharge Planning Goal: Discharge to home or other facility with appropriate resources Outcome: Progressing Normal [facility] ABO and Rh group Confirm Nom (Bld)on 01-26-2025 ABO group Nom (Bld) A [facility] D Ag Ql (RBC) Positive [facility] BASIC METABOLIC PANELon 01-13 Anion gap [Moles/Vol] 10 mmol/L Normal 3-13 [facility] Comment on above: Performed By: #### L AB15 #### Shake Maker: KYREE WEATHERS ([id number]) [facility]) [address] [place] [address] Calcium [Mass/Vol] 9.0 mg/dL Normal 8.4-10.2 [facility] Comment on above: Performed By: #### L AB15 #### Shake Maker: KYREE WEATHERS ([id number]) [facility] ([facility]) [address] [place] [address] [place] Chloride [Moles/Vol] 104 mmol/L Normal 98-107 [facility] Comment on above: Performed By: #### L AB15 #### Shake Maker: KYREE WEATHERS ([phone]) [facility]) [address] [place] [address] [place] CO2 [Moles/Vol] 22 mmol/L Normal 22-29 [facility] Comment on above: Performed By: #### L AB15 #### Shake Maker: KYREE WEATHERS ([id number]) [facility] [address] [place] [address] [place] Creatinine [Mass/Vol] 0.64 mg/dL Normal 0.57-1.11 [facility] Comment on above: Performed By: #### L AB15 #### Shake Maker: KYREE WEATHERS ([id number]) [facility] [address] [place] [address] [place] GLOMERULAR FILTRATION RATE ML/MIN/1.73 SQ M.PREDICTED >90.0 Normal >60.0 [facility] Comment on above: Result Comment: Calc ulation based on the Chronic Kidney Disease Epidemiology Collaboration (CKD-EPI) equation refit without adjustment for race Performed By: #### L AB15 #### Shake Maker: KYREE WEATHERS ([id number]) [facility] [address] [place] [address] [place] Glucose [Mass/Vol] 129 mg/dL High 74-100 [facility] Comment on above: Performed By: #### L AB15 #### Shake Maker: KYREE WEATHERS ([id number]) [facility] [address] [place] [address] [place] Potassium [Moles/Vol] 3.7 mmol/L Normal 3.5-5.1 [facility] Comment on above: Result Comment: [facility] potassium values may be up to 0.5 mmol/L lower than serum values. Performed By: #### L AB15 #### Shake Maker: KYREE WEATHERS ([id number]) [facility] [address] [place] [address] [place] Sodium [Moles/Vol] 136 mmol/L Normal 136-145 [facility] Comment on above: Performed By: #### L AB15 #### Shake Maker: KYREE WEATHERS ([id number]) [facility] ([facility]) [address] [place] [address] [place] Urea nitrogen [Mass/Vol] 12 mg/dL Normal 9-23 [facility] Comment on above: Performed By: #### L AB15 #### Shake Maker: KYREE [id number]) [facility] ([facility]) [address] [place] [address] BLOOD TYPE AND SCREEN GELon 01-26-2025 ABO GROUPING A Normal [facility] Comment on above: Order Comment: HOLD. Specimen is valid for 3 days - nurse to verify valid specimen Performed By: #### L AB15 #### Shake Maker: KYREE WEATHERS ([phone]) [facility] [address] [place] [address] RH TYPE IN BLOOD Positive Normal [facility] Comment on above: Order Comment: HOLD. Specimen is valid for 3 days - nurse to verify valid specimen Performed By: #### L AB15 #### Shake Maker: KYREE WEATHERS ([id number]) [facility] [address] [place] [address] Basic metabolic 1998 panelon 01-26-2025 Anion gap [Moles/Vol] 10 mmol/L 3 - 13 mmol/L [facility] Calcium [Mass/Vol] 9 mg/dL 8.4 - 10. 2 mg/dL [facility] Chloride [Moles/Vol] 104 mmol/L 98 - 10 7 mmol/L [facility] CO2 [Moles/Vol] 22 mmol/L 22 - 29 mmol/L [facility] Creatinine [Mass/Vol] 0.64 mg/dL 0.57 - 1.11 mg/dL [facility] GFR/1.73 sq M.predicted (S/P/Bld) [Vol rate/Area] - PINF [facility] Comment on above: Calculation based on the Chronic Kidney Disease Epidemiology Collaboration (CKD-EPI) equation refit without adjustment for race Glucose [Mass/Vol] 129 mg/dL High 74 - 100 mg/dL [facility] Interpretation and review of laboratory results Abnormal [facility] Potassium [Moles/Vol] 3.7 mmol/L 3.5 - 5.1 mmol/L [facility] Comment on above: Plasma potassium fredis ues may be up to 0.5 mmol/L lower than serum values. Sodium [Moles/Vol] 136 mmol/L 136 - 145 mmol/L [facility] Urea nitrogen [Mass/Vol] 12 mg/dL 9 - 23 mg/dL [facility] Blood type and Crossmatch pa chantale (Bld)on 01-26-2025 ABO group Nom (Bld) A [facility] Blood group antibody screen GEL Ql Negative [facility] D Ag Ql (RBC) Positive [facility] CBC (HEMOGRAM)on 01-26-2025 Erythrocyte distribution width (RBC) [Ratio] 13.2 % Normal 11.5-15.0 [facility] Comment on above: Performed By: #### L AB294 #### Shake Maker: KYREE WEATHERS ([id number]) [facility]) [address] [place] [address] Hematocrit (Bld) [Volume fraction] 38.2 % Normal 35.0-47.0 [facility] Comment on above: Performed By: #### L AB294 #### Shake Maker: KYREE WEATHERS ([phone]) [address] Hemoglobin (Bld) [Mass/Vol] 13.0 g/dL Normal 11.7-16.0 [facility] Comment on above: Performed By: #### L AB294 #### Shake Maker: KYREE WEATHERS ([id number]) [facility]) [address] [place] [address] MCH (RBC) [Entitic mass] 28.7 pg Normal 26.0-34.0 [facility] Comment on above: Performed By: #### L AB294 #### Shake Maker: KYREE WEATHERS ([id number]) [facility]) [address] [place] [address] MCHC 34.0 % Normal 30.5-36.0 [facility] Comment on above: Performed By: #### L AB294 #### Shake Maker: KYREE WEATHERS ([id number]) [address] MCV (RBC) [Entitic vol] 84.3 fL Normal 77.0-99.0 [facility] Comment on above: Performed By: #### L AB294 #### Shake Maker: KYREE WEATHERS ([id number]) [facility] ([facility]) [address] [place] [address] Platelet mean volume (Bld) [Entitic vol] 10.4 fL Normal 9.0-12.7 [facility] Comment on above: Performed By: #### L AB294 #### Shake Maker: KYREE WEATHERS ([id number]) [facility] ([facility]) [address] [place] [address] Platelets (Bld) [#/Vol] 227 10*3/uL Normal 140-440 [facility] Comment on above: Performed By: #### L AB294 #### Shake Maker: KYREE WEATHERS ([id number]) [facility] ([facility]) [address] [place] [address] RBC (Bld) [#/Vol] 4.53 10*6/uL Normal 3.80-5.20 [facility] Comment on above: Performed By: #### L AB294 #### Shake Maker: KYREE WEATHERS ([id number]) [facility] ([facility]) [address] [place] [address] WBC (Bld) [#/Vol] 8.5 10*3/uL Normal 3.6-10.7 [facility] Comment on above: Performed By: #### L AB294 #### Shake Maker: KYREE WEATHERS ([id number]) [facility] ([facility]) [address] [place] [address] CBC panel Auto (Bld)on 01-26 Erythrocyte distribution width (RBC) [Ratio] 13.2 % 11.5 - 15.0 % [facility] Hematocrit (Bld) [Volume fraction] 38.2 % 35.0 - 47.0 % [facility] Hemoglobin (Bld) [Mass/Vol] 13 g/dL 11.7 - 16.0 g/dL [facility] Interpretation and review of laboratory results Normal [facility] MCH (RBC) [Entitic mass] 28.7 pg 26.0 - 34.0 pg [facility] MCHC (RBC) [Mass/Vol] 34 % 30.5 - 36.0 % [facility] MCV (RBC) [Entitic vol] 84.3 fL 77.0 - 99.0 fL [facility] Platelet mean volume (Bld) [Entitic vol] 10.4 fL 9.0 - 12.7 fL [facility] Platelets (Bld) [#/Vol] 227 10*3/uL 140 - 440 10*3/uL [facility] RBC (Bld) [#/Vol] 4.53 10*6/uL 3.80 - 5.2 0 10*6/uL [facility] WBC (Bld) [#/Vol] 8.5 10*3/uL 3.6 - 10.7 10*3/uL [facility] Nursing Noteon 01-26-2025 Nursing Note Meds to Beds deliver ed to patient. Pt declined oxycodone prescription and sent back with Meds to Beds. [facility] Nursing Note Report given to Jenny PACK [facility] Nursing Note Faxed report sheet to [address] Nursing Note Patient family/visit or updated by RN at this time. [facility] Op Noteon 01-26-2025 Op Note Date of [...] Hemostasis was with several small 3-0 Vicryl [id number]'s in the bladder peritoneum Bovie cautery as [...] cover room in stable condition by anesthesia Normal [facility] Op Note Date: 01/26/2025 Loca tion: [...] 01/26/25 0928 Routine Description: LEFT OVARY Staff: Computing Services Director: Dora Castro RN Scrub Person: Daysi Escobar RN [place] to Circ: Sabrina Philip RN Findings: Leiomyosarcoma [...] (two hours if receiving Vancomycin or flouroquinolone) [facility] [id number] 01-23-2025 [id number] Medication List Accurate as of January 23, [...] Adjustments for Surgery: Take night before surgery SUPERVISOR POLICY CHANGE CLERKS AND PARKING IN THE MAIN DECK ARE [...] your scheduled surgery time. Please bring your [facility] Surgical folder and medication list with you day of surgery. We encourage you to write down any questions you may have for the surgeon, anesthesiologist, or other members of the surgical team and bring it with you the day of surgery. Please bring photo ID and insurance information. Normal [facility] Cancer Antigen 125on 025 CA 125 11.3 U/mL Normal 0.0-38.1 [facility] Comment on above: Result Comment: [employer] Electrochemiluminescence Immunoassay(ECLIA)Values obtained with different assay methods or kits cannotbe used interchangeably. Results cannot be interpreted asabsolute evidence of the presence or absence of malignantdisease.Performed at: [facility] [id number] Director: Richi Vargas PhD, Phone: [phone] Performed By: #### L 504.2610, L3100.5000, L100.0100, L500.4050, L100.9950 ####[facility] [address] [place], [address] 36on 01-19-2025 36 PAT 01.23.2025 at 9: 30 am by phone SX: 04.28.2025 at 8:30 am arrival at 6:30 am Post op 02.09.2025 at 11 am Folder and instructions given. Normal [facility] Cancer antigen 125 (CA-125) measurementOrdered By: Imani Persaud on 01-19-2025 CA 125 Antigen 11.3 U/mL 0.0-38.1 [facility] Comment on above: [employer] ectrochemiluminescence Immunoassay(ECLIA)Values obtained with different assay methods or kits cannotbe used interchangeably. Results cannot be interpreted asabsolute evidence of the presence or absence of malignantdisease.Performed at: [facility] [id number] Director: Richi Vargas PhD, Phone: [phone] Cancer antigen 125 (CA-125) measurement 11.3 U/mL 0.0-38.1 [facility] Comment on above: [employer] El ectrochemiluminescence Immunoassay(ECLIA)Values obtained with different assay methods or kits cannotbe used interchangeably. 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 device sales representative in room during exam Normal [facility] Transvaginal Non-on 01-12-2025 Transvaginal Non- Normal [facility] Absolute lymphocyte countOrd ered By: Imani Persaud on 01-10-2025 Lymphocytes Auto (Unsp spec) [#/Vol] 1.58 10*3/uL 0.83-4.51 [facility] Absolute neutrophil countOrd ered By: Imani Persaud on 01-10-2025 Neutrophils (Bld) [#/Vol] 5.7 10*3/uL 2.0-7.7 [facility] Automated lymphocyte count a s percentage of total leukocytesOrdered By: Imani Metzgeralma on 01-10-2025 Lymphocytes/100 WBC Auto (Unsp spec) 19.3 % 19- [facility] BUN/creatinine ratioOrdered By: Imani Metzgeralma on 01-10-2025 Urea nitrogen/Creatinine [Mass ratio] 20.6 mg/mg High 10-20 [facility] Basophil percentageOrdered B y: Imani Metzgeralma on 01-10-2025 Basophils/100 WBC (Bld) 0.9 % 0-1 [facility] Bilirubin, totalOrdered By: [facility] Metzgeralma on 01-10-2025 Bilirubin [Mass/Vol] 0.43 mg/dL 0.00-1.30 [facility] CBC W/Diff, Automatedon 12-17 Absolute Lymph 1.58 X10 3/uL Normal 0.83-4.51 [facility] Comment on above: Performed By: #### L 504.2610, L3100.5000, L100.0100, L500.4050, L100.9950 ####[facility] [address] [place], [address] Absolute Neut 5.7 X10 3/uL Normal 2.0-7.7 [facility] Comment on above: Performed By: #### L 504.2610, L3100.5000, L100.0100, L500.4050, L100.9950 ####[facility] [address] [place], [address] Basophils/100 WBC (Bld) 0.9 % Normal 0-1 [facility] Comment on above: Performed By: #### L 504.2610, L3100.5000, L100.0100, L500.4050, L100.9950 ####[facility] [address] [place], [address] Eosinophils/100 WBC (Bld) 3.7 % Normal 0-5 [facility] Comment on above: Performed By: #### L 504.2610, L3100.5000, L100.0100, L500.4050, L100.9950 ####[facility] [address] [place], [address] Erythrocyte distribution width (RBC) [Ratio] 13.0 % Normal 11.6-14.6 [facility] Comment on above: Performed By: #### L 504.2610, L3100.5000, L100.0100, L500.4050, L100.9950 ####[facility] [address] [place], [address] Hematocrit (Bld) [Volume fraction] 42.6 % Normal 37-47 [facility] Comment on above: Performed By: #### L 504.2610, L3100.5000, L100.0100, L500.4050, L100.9950 ####[facility] [address] [place], [address] Hemoglobin (Bld) [Mass/Vol] 13.9 g/dL Normal 12.0-15.0 [facility] Comment on above: Performed By: #### L 504.2610, L3100.5000, L100.0100, L500.4050, L100.9950 ####[facility] [address] [place], [address] IG% 0.600 Normal 0.0-0.9 [facility] Comment on above: Result Comment: IG% - Immature Granulocytes (promyelocytes, myelocytes andmetamyelocytes) > 1% indicates that a LEFT SHIFT is Present. Performed By: #### L 504.2610, L3100.5000, L100.0100, L500.4050, L100.9950 ####[facility] [address] [place], [address] Lymphocytes/100 WBC (Bld) 19.3 % Normal 19-41 [facility] Comment on above: Performed By: #### L 504.2610, L3100.5000, L100.0100, L500.4050, L100.9950 ####[facility] [address] [place], [address] MCH (RBC) [Entitic mass] 30.1 pg Normal 27.0-32.0 [facility] Comment on above: Performed By: #### L 504.2610, L3100.5000, L100.0100, L500.4050, L100.9950 ####[facility] [address] [place], [address] MCHC (RBC) [Mass/Vol] 32.6 g/dL Normal 32-36 [facility] Comment on above: Performed By: #### L 504.2610, L3100.5000, L100.0100, L500.4050, L100.9950 ####[facility] [address] [place], [address] MCV (RBC) [Entitic vol] 92.2 fL Normal 81-99 [facility] Comment on above: Performed By: #### L 504.2610, L3100.5000, L100.0100, L500.4050, L100.9950 ####[facility] [address] [place], [address] Monocytes/100 WBC (Bld) 6.1 % Normal 0-10 [facility] Comment on above: Performed By: #### L 504.2610, L3100.5000, L100.0100, L500.4050, L100.9950 ####[facility] [address] [place], [address] Neutrophils/100 WBC (Bld) 69.4 % Normal 47-70 [facility] Comment on above: Performed By: #### L 504.2610, L3100.5000, L100.0100, L500.4050, L100.9950 ####[facility] [address] [place], [address] Nucleated RBC (Bld) [#/Vol] 0 10*3/uL Normal 0-5 [facility] Comment on above: Performed By: #### L 504.2610, L3100.5000, L100.0100, L500.4050, L100.9950 ####[facility] [address] [place], [address] Platelet mean volume (Bld) [Entitic vol] 9.9 fL Normal 6.2-12.0 [facility] Comment on above: Performed By: #### L 504.2610, L3100.5000, L100.0100, L500.4050, L100.9950 ####[facility] [address] [place], [address] Platelets (Bld) [#/Vol] 250 10*3/uL Normal 150-450 [facility] Comment on above: Performed By: #### L 504.2610, L3100.5000, L100.0100, L500.4050, L100.9950 ####[facility] [address] [place], [address] RBC (Bld) [#/Vol] 4.62 10*6/uL Normal 4.2-5.4 [facility] Comment on above: Performed By: #### L 504.2610, L3100.5000, L100.0100, L500.4050, L100.9950 ####[facility] [address] [place], [address] RDW SD 43.4 fl Normal 35.1-43.9 [facility] Comment on above: Performed By: #### L 504.2610, L3100.5000, L100.0100, L500.4050, L100.9950 ####[facility] [address] [place], [place], [address] WBC (Bld) [#/Vol] 8.2 10*3/uL Normal 4.4-11.0 [facility] Comment on above: Performed By: #### L 504.2610, L3100.5000, L100.0100, L500.4050, L100.9950 ####[facility] [address] [place], [address] Carbon dioxide measurementOr dered By: Imani Persaud on 01-10-2025 CO2 [Moles/Vol] 25.5 mmol/L 22.0-29.0 [facility] Chloride measurementOrdered By: Imani Persaud on 01-10-2025 Chloride [Moles/Vol] 103 mmol/L 96-108 [facility] Comprehensive Metabolic Prof ilon 01-10-2025 CO2 [Moles/Vol] 25.5 mmol/L Normal 22.0-29.0 [facility] Comment on above: Performed By: #### L 504.2610, L3100.5000, L100.0100, L500.4050, L100.9950 ####[facility] [address] [place], [address] Eosinophil percentageOrdered By: Imani Persaud on 01-10-2025 Eosinophils/100 WBC (Bld) 3.7 % 0-5 [facility] Erythrocyte distribution wid th ratioOrdered By: Imani Persaud on 01-10-2025 Erythrocyte distribution width (RBC) [Ratio] 13.0 % 11.6-14.6 [facility] Erythrocyte distribution wid th standard deviationOrdered By: [facility] Persaud on 01-10-2025 Erythrocyte distribution width (RBC) [Entitic vol] 43.4 fL 35.1-43.9 [facility] Erythrocyte distribution width (RBC) [Ratio] 43.4 fl 35.1-43.9 [facility] GFR/1.73 sq M.predicted leisa g non-blacks MDRD (S/P/Bld) [Vol rate/Area]Ordered By: Imani Persaud on 01-10-2025 Estimated GFR (MDRD) Non-Af Amer 107 >60 [facility] Comment on above: mL/min/1.73m2 CKD-EP I Creatinine Equation (2020) Glomerular filtration rate ( GFR) estimation/1.73 sq m using serum, plasma, or whole bOrdered By: Imani Persaud on 01-10-2025 GFR/1.73 sq M.predicted among non-blacks MDRD (S/P/Bld) [Vol rate/Area] 107 mL/min/{1.73_m2} >60 [facility] Comment on above: mL/min/1.73m2 CKD-EP I Creatinine Equation (2020) Hematocrit Auto (Bld) [Volum e fraction]Ordered By: Imani Persaud on 01-10-2025 Hematocrit (Bld) [Volume fraction] 42.6 % 37-47 [facility] Hemoglobin (Reticulocytes) [ Entitic mass]Ordered By: [facility] Persaud on 01-10-2025 Reticulocyte Hemoglobin Equivalent 29.6 pg Low 30-35 [facility] Hemoglobin measurementOrdere d By: Imani Persaud on 01-10-2025 Hemoglobin (Bld) [Mass/Vol] 13.9 g/dL 12.0-15.0 [facility] Immature granulocytes/100 WB C Auto (Bld)Ordered By: Imani Persaud on 01-10-2025 Immature granulocytes/100 WBC (Bld) 0.600 % 0.0-0.9 [facility] Comment on above: IG% - Immature Granu locytes (promyelocytes, myelocytes and metamyelocytes) > 1% indicates that a LEFT SHIFT is Present. Immature reticulocyte fracti onOrdered By: Imani Persaud on 01-10-2025 Immature Reticulocyte Fraction 22.90 % High 3.00-15.90 [facility] LDHon 01-10-2025 LDH 234 U/L Normal 84-246 [facility] Comment on above: Order Comment: 1 Performed By: #### L 504.2610, L3100.5000, L100.0100, L500.4050, L100.9950 ####[facility] [address] [place], [address] Laboratory - Chemistry and C hemistry - challengeOrdered By: Imani Persaud on 01-10-2025 AST [Catalytic activity/Vol] 26 U/L <32 [facility] Lactate dehydrogenase (LDH) measurementOrdered By: Imani Persaud on 01-10-2025 LDH [Catalytic activity/Vol] 234 U/L 84-246 [facility] Lymphocytes Auto (Unsp spec) [#/Vol]Ordered By: Imani Persaud on 01-10-2025 Lymphocytes (Bld) [#/Vol] 1.58 10*3/uL 0.83-4.51 [facility] Lymphocytes/100 WBC Auto (Un sp spec)Ordered By: Imani Persaud on 01-10-2025 Lymphocytes/100 WBC (Bld) 19.3 % 19-41 [facility] MCV (mean corpuscular volume ) determinationOrdered By: Imani Persaud on 01-10-2025 MCV (RBC) [Entitic vol] 92.2 fL 81-99 [facility] Mean corpuscular hemoglobin (MCH) determinationOrdered By: Imani Persaud on 01-10-2025 MCH (RBC) [Entitic mass] 30.1 pg 27.0-32.0 [facility] Mean corpuscular hemoglobin concentration (MCHC) determinationOrdered By: Imani Persaud on 01-10-2025 MCHC (RBC) [Mass/Vol] 32.6 g/dL 32-36 [facility] Mean platelet volume determi nationOrdered By: Imani Persaud on 01-10-2025 Platelet mean volume (Bld) [Entitic vol] 9.9 fL 6.2-12.0 [facility] Monocyte percentageOrdered B y: Imani Persaud on 01-10-2025 Monocytes/100 WBC (Bld) 6.1 % 0-10 [facility] Neutrophil percentageOrdered By: [facility] Persaud on 01-10-2025 Neutrophils/100 WBC (Bld) 69.4 % 47-70 [facility] Nucleated red blood cell per centageOrdered By: Imani Persaud on 01-10-2025 Nucleated RBC/100 WBC (Bld) [Ratio] 0 % 0-5 [facility] Oncology Visit Reporton 12-17 Oncology Visit Report Normal [facility] Platelet countOrdered By: Jonatan Persaud on 01-10-2025 Platelets (Bld) [#/Vol] 250 10*3/uL 150-450 [facility] RBC Auto (Bld) [#/Vol]Ordere d By: Imani Persaud on 01-10-2025 RBC (Bld) [#/Vol] 4.62 10*6/uL 4.2-5.4 [facility] Retic Panelon 01-10-2025 IM RET FRACTION 22.90 High 3.00-15.90 [facility] Comment on above: Performed By: #### L 504.2610, L3100.5000, L100.0100, L500.4050, L100.9950 ####[facility] [address] [place], [address] RET-HE 29.6 pg Low 30-35 [facility] Comment on above: Performed By: #### L 504.2610, L3100.5000, L100.0100, L500.4050, L100.9950 ####[facility] [address] [place], [address] Retic Count 2.15 High 0.5-1.5 [facility] Comment on above: Performed By: #### L 504.2610, L3100.5000, L100.0100, L500.4050, L100.9950 ####[facility] [address] [place], [place], [phone] Reticulocyte hemoglobin equi valent (RET-He) measurementOrdered By: Imani Persaud on 01-10-2025 Hemoglobin (Reticulocytes) [Entitic mass] 29.6 pg Low 30-35 [facility] Reticulocytes Auto (Bld) [#/ Vol]Ordered By: Imani Persaud on 01-10-2025 Reticulocyte Count 2.15 % High 0.5-1.5 [facility] Reticulocytes/100 RBC (Bld) 2.15 % High 0.5-1.5 [facility] Serum creatinine measurement (mass/volume)Ordered By: Imani Persaud on 01-10-2025 Creatinine [Mass/Vol] 0.6 mg/dL 0.70-1.20 [facility] Serum globulin measurementOr dered By: Imani Persaud on 01-10-2025 Globulin (S) [Mass/Vol] 4.1 g/dL 2.2-4.2 [facility] Serum glucose measurement (m ass/volume)Ordered By: Imani Persaud on 01-10-2025 Glucose [Mass/Vol] 95 mg/dL 70-99 [facility] Serum or plasma alanine del rio otransferase (ALT) measurementOrdered By: Imani Persaud on 01-10-2025 ALT [Catalytic activity/Vol] 20 U/L <35 [facility] Serum or plasma albumin cass urement (mass/volume)Ordered By: Imani Persaud on 01-10-2025 Albumin [Mass/Vol] 3.7 g/dL 3.5-5.0 [facility] Serum or plasma albumin/glob ulin mass ratioOrdered By: Imani Persaud on 01-10-2025 Albumin/Globulin [Mass ratio] 0.9 {ratio} 0.9-2.4 [facility] Serum or plasma alkaline tre sphatase measurementOrdered By: Imani Persaud on 01-10-2025 ALP [Catalytic activity/Vol] 92 U/L 35-104 [facility] [facility] Serum or plasma anion gap de termination (moles/volume)Ordered By: Imani Persaud on 01-10-2025 Anion gap [Moles/Vol] 10 mmol/L 5-15 [facility] Serum or plasma calcium cass urement (mass/volume)Ordered By: Imani Persaud on 01-10-2025 Calcium [Mass/Vol] 8.9 mg/dL 7.6-11.0 [facility] Serum or plasma potassium me asurementOrdered By: Imani Persaud on 01-10-2025 Potassium [Moles/Vol] 4.2 mmol/L 3.3-5.1 [facility] Serum or plasma sodium measu rement (moles/volume)Ordered By: Imani Persaud on 01-10-2025 Sodium [Moles/Vol] 138 mmol/L 133-145 [facility] Serum or plasma urea nitroge n measurement (mass/volume)Ordered By: Imani Cori on 01-10-2025 Urea nitrogen [Mass/Vol] 12 mg/dL 4-19 [facility] Total proteinOrdered By: Lonnie mcgraw Cori on 01-10-2025 Protein [Mass/Vol] 7.8 g/dL 5.9-8.4 [facility] Urine Cultureon 01-10-2025 [facility] Mixed Gram Positive Organisms [place] Count 25,000-50,000 MIXC Mixed contaminants. Submit a new specimen if indicated. Normal [facility] Comment on above: Performed By: #### M 100.2200 ####[facility] [address] [place], [address] White blood cell (WBC) count Ordered By: Imani Cori on 01-10-2025 WBC (Bld) [#/Vol] 8.2 10*3/uL 4.4-11.0 [facility] Abdomen/Pelvis W IV Cont ONL Yon 01-08-2025 Abdomen/Pelvis W IV Cont ONLY Normal [facility] Absolute lymphocyte countOrd ered By: ED PROVIDER on 01-08-2025 Lymphocytes Auto (Unsp spec) [#/Vol] 1.90 10*3/uL 0.83-4.51 [facility] Absolute neutrophil countOrd ered By: ED PROVIDER on 01-08-2025 Neutrophils (Bld) [#/Vol] 6.6 10*3/uL 2.0-7.7 [facility] Albumin to globulin ratioOrd ered By: ED PROVIDER on 01-08-2025 Albumin/Globulin [Mass ratio] 0.6 {ratio} Low 0.9-2.4 [facility] Automated lymphocyte count a s percentage of total leukocytesOrdered By: ED PROVIDER on 01-08-2025 Lymphocytes/100 WBC Auto (Unsp spec) 20.3 % 19-41 [facility] Basophil percentageOrdered B y: ED PROVIDER on 01-08-2025 Basophils/100 WBC (Bld) 0.6 % 0-1 [facility] Bilirubin Test strip Ql (U)O rdered By: Isaiah Villanueva on 01-08-2025 Bilirubin Ql (U) Negative Negative [facility] Bilirubin, totalOrdered By: ED PROVIDER on 01-08-2025 Bilirubin [Mass/Vol] 1.20 mg/dL High 0.20-1.00 [facility] Comment on above: For patients on eltr ombopag therapy, use of Dimension [place] TBIL is not recommended. Blood urea nitrogen (BUN)/cr eatinine ratioOrdered By: ED PROVIDER on 01-08-2025 Urea nitrogen/Creatinine [Mass ratio] 19.1 mg/mg 10- [facility] CBC W/Diff, Automatedon 12-17 Absolute Lymph 1.90 X10 3/uL Normal 0.83-4.51 [facility] Comment on above: Performed By: #### L 100.0100, L501.2450, L500.4050 ####[facility] [address] [place], [address] Absolute Neut 6.6 X10 3/uL Normal 2.0-7.7 [facility] Comment on above: Performed By: #### L 100.0100, L501.2450, L500.4050 ####[facility] [address] [place], [address] Basophils/100 WBC (Bld) 0.6 % Normal 0-1 [facility] Comment on above: Performed By: #### L 100.0100, L501.2450, L500.4050 ####[facility] [address] [place], [address] Eosinophils/100 WBC (Bld) 1.8 % Normal 0-5 [facility] Comment on above: Performed By: #### L 100.0100, L501.2450, L500.4050 ####[facility] [address] [place], [address] Erythrocyte distribution width (RBC) [Ratio] 13.2 % Normal 11.6-14.6 [facility] Comment on above: Performed By: #### L 100.0100, L501.2450, L500.4050 ####[facility] [address] [place], [address] Hematocrit (Bld) [Volume fraction] 43.8 % Normal 37-47 [facility] Comment on above: Performed By: #### L 100.0100, L501.2450, L500.4050 ####[facility] [address] [place], [address] Hemoglobin (Bld) [Mass/Vol] 14.7 g/dL Normal 12.0-15.0 [facility] Comment on above: Performed By: #### L 100.0100, L501.2450, L500.4050 ####[facility] [address] [place], [address] IG% 0.300 Normal 0.0-0.9 [facility] Comment on above: Result Comment: IG% - Immature Granulocytes (promyelocytes, myelocytes andmetamyelocytes) > 1% indicates that a LEFT SHIFT is Present. Performed By: #### L 100.0100, L501.2450, L500.4050 ####[facility] [address] [place], [address] Lymphocytes/100 WBC (Bld) 20.3 % Normal 19-41 [facility] Comment on above: Performed By: #### L 100.0100, L501.2450, L500.4050 ####[facility] [address] [place], [address] MCH (RBC) [Entitic mass] 29.8 pg Normal 27.0-32.0 [facility] Comment on above: Performed By: #### L 100.0100, L501.2450, L500.4050 ####[facility] [address] [place], [address] MCHC (RBC) [Mass/Vol] 33.6 g/dL Normal 32-36 [facility] Comment on above: Performed By: #### L 100.0100, L501.2450, L500.4050 ####[facility] [address] [place], [address] MCV (RBC) [Entitic vol] 88.7 fL Normal 81-99 [facility] Comment on above: Performed By: #### L 100.0100, L501.2450, L500.4050 ####[facility] [address] [place], [address] Monocytes/100 WBC (Bld) 6.3 % Normal 0-10 [facility] Comment on above: Performed By: #### L 100.0100, L501.2450, L500.4050 ####[facility] [address] [place], [address] Neutrophils/100 WBC (Bld) 70.7 % High 47-70 [facility] Comment on above: Performed By: #### L 100.0100, L501.2450, L500.4050 ####[facility] [address] [place], [address] Nucleated RBC (Bld) [#/Vol] 0 10*3/uL Normal 0-5 [facility] Comment on above: Performed By: #### L 100.0100, L501.2450, L500.4050 ####[facility] [address] [place], [address] Platelet mean volume (Bld) [Entitic vol] 9.7 fL Normal 6.2-12.0 [facility] Comment on above: Performed By: #### L 100.0100, L501.2450, L500.4050 ####[facility] [address] [place], [address] Platelets (Bld) [#/Vol] 237 10*3/uL Normal 150-450 [facility] Comment on above: Performed By: #### L 100.0100, L501.2450, L500.4050 ####[facility] [address] [place], [address] RBC (Bld) [#/Vol] 4.94 10*6/uL Normal 4.2-5.4 [facility] Comment on above: Performed By: #### L 100.0100, L501.2450, L500.4050 ####[facility] [address] [place], [address] RDW SD 42.5 fl Normal 35.1-43.9 [facility] Comment on above: Performed By: #### L 100.0100, L501.2450, L500.4050 ####[facility] [address] [place], [address] WBC (Bld) [#/Vol] 9.4 10*3/uL Normal 4.4-11.0 [facility] Comment on above: Performed By: #### L 100.0100, L501.2450, L500.4050 ####[facility] [address] [place], [address] Carbon dioxide measurementOr dered By: ED PROVIDER on 01-08-2025 CO2 [Moles/Vol] 29.0 mmol/L 21.0-32.0 [facility] Chloride measurementOrdered By: ED PROVIDER on 01-08-2025 Chloride [Moles/Vol] 100 mmol/L 98-107 [facility] Comprehensive Metabolic Prof ilon 01-08-2025 Albumin [Mass/Vol] 3.0 g/dL Low 3.2-5.0 [facility] Comment on above: Performed By: #### L 100.0100, L501.2450, L500.4050 ####[facility] [address] [place], [address] Albumin/Globulin [Mass ratio] 0.6 {ratio} Low 0.9-2.4 [facility] Comment on above: Performed By: #### L 100.0100, L501.2450, L500.4050 ####[facility] [address] [place], [address] ALK P 98 U/L Normal 45-117 [facility] Comment on above: Performed By: #### L 100.0100, L501.2450, L500.4050 ####[facility] [address] [place], [address] ALT [Catalytic activity/Vol] 23 U/L Normal 13-56 [facility] Comment on above: Performed By: #### L 100.0100, L501.2450, L500.4050 ####[facility] [address] [place], [address] AST [Catalytic activity/Vol] 16 U/L Normal 15-37 [facility] Comment on above: Performed By: #### L 100.0100, L501.2450, L500.4050 ####[facility] [address] [place], [address] Bilirubin [Mass/Vol] 1.20 mg/dL High 0.20-1.00 [facility] Comment on above: Result Comment: For patients on eltrombopag therapy, use of Dimension [place] TBIL is not recommended. Performed By: #### L 100.0100, L501.2450, L500.4050 ####[facility] [address] [place], [address] BUN/CRE 19.1 RATIO Normal 10-20 [facility] Comment on above: Performed By: #### L 100.0100, L501.2450, L500.4050 ####[facility] [address] [place], [address] CA,Total 9.5 mg/dL Normal 8.5-10.1 [facility] Comment on above: Performed By: #### L 100.0100, L501.2450, L500.4050 ####[facility] [address] [place], [address] Chloride [Moles/Vol] 100 mmol/L Normal 98-107 [facility] Comment on above: Performed By: #### L 100.0100, L501.2450, L500.4050 ####[facility] [address] [place], [address] CO2 [Moles/Vol] 29.0 mmol/L Normal 21.0-32.0 [facility] Comment on above: Performed By: #### L 100.0100, L501.2450, L500.4050 ####[facility] [address] [place], [address] Creatinine [Mass/Vol] 0.73 mg/dL Normal 0.55-1.02 [facility] Comment on above: Result Comment: The validity of the calculated GFR GFRAA in patients over70 years has not been determined. Clinical correlation isessential. Performed By: #### L 100.0100, L501.2450, L500.4050 ####[facility] [address] [place], [address] ECRCL 110.63 ml/min Normal [facility] Comment on above: Performed By: #### L 100.0100, L501.2450, L500.4050 ####[facility] [address] [place], [address] EST GFR - AA 106 mL/min Normal >60 [facility] Comment on above: Result Comment: Afri can [place] GFR Calc Performed By: #### L 100.0100, L501.2450, L500.4050 ####[facility] [address] [place], [address] GAP 7 Normal 5-15 [facility] Comment on above: Performed By: #### L 100.0100, L501.2450, L500.4050 ####[facility] [address] [place], [address] GFR/1.73 sq M.predicted among non-blacks MDRD (S/P/Bld) [Vol rate/Area] 88 mL/min/{1.73_m2} Normal >60 [facility] Comment on above: Result Comment: Non- GFR Calc Performed By: #### L 100.0100, L501.2450, L500.4050 ####[facility] [address] [place], [address] Globulin (S) [Mass/Vol] 5.4 g/dL High 2.2-4.2 [facility] Comment on above: Performed By: #### L 100.0100, L501.2450, L500.4050 ####[facility] [address] [place], [address] Glucose [Mass/Vol] 119 mg/dL High 74-106 [facility] Comment on above: Result Comment: Fast ing Glucose result from 100 to 125 mg/dLsuggests IMPAIRED HOMEOSTASIS per A.D.A. criteria. Performed By: #### L 100.0100, L501.2450, L500.4050 ####[facility] [address] [place], [address] Potassium [Moles/Vol] 4.4 mmol/L Normal 3.5-5.1 [facility] Comment on above: Performed By: #### L 100.0100, L501.2450, L500.4050 ####[facility] [address] [place], [address] Sodium [Moles/Vol] 136 mmol/L Normal 136-145 [facility] Comment on above: Performed By: #### L 100.0100, L501.2450, L500.4050 ####[facility] [address] [place], [address] T PROT 8.4 g/dL High 6.4-8.2 [facility] Comment on above: Performed By: #### L 100.0100, L501.2450, L500.4050 ####[facility] [address] [place], [address] Urea nitrogen [Mass/Vol] 14 mg/dL Normal 7-18 [facility] Comment on above: Performed By: #### L 100.0100, L501.2450, L500.4050 ####[facility] [address] [place], [address] Emergency Department Summary on 01-08-2025 Emergency Department Summary Normal [facility] Eosinophil percentageOrdered By: ED PROVIDER on 01-08-2025 Eosinophils/100 WBC (Bld) 1.8 % 0-5 [facility] Epithelial cells.squamous LM Ql (Urine sed)Ordered By: Isaiah Villanueva on 01-08-2025 Epithelial cells.squamous LM.HPF (Urine sed) [#/Area] 0 /[HPF] 5-10 [facility] Erythrocyte distribution wid th ratioOrdered By: ED PROVIDER on 01-08-2025 Erythrocyte distribution width (RBC) [Ratio] 13.2 % 11.6-14.6 [facility] Erythrocyte distribution wid th standard deviationOrdered By: ED PROVIDER on 01-08-2025 Erythrocyte distribution width (RBC) [Entitic vol] 42.5 fL 35.1-43.9 [facility] Erythrocyte distribution width (RBC) [Ratio] 42.5 fl 35.1-43.9 [facility] Estimated glomerular filtrat ion rate (GFR) AmericanOrdered By: ED PROVIDER on 01-08-2025 Estimated GFR (MDRD) Amer 106 mL/min >60 [facility] Comment on above: GFR Calc Estimation of creatinine tapan aranceOrdered By: ED PROVIDER on 01-08-2025 Estimated Creatinine Clearance Calc 110.63 ml/min [facility] Glomerular filtration rate ( GFR) estimationOrdered By: ED PROVIDER on 01-08-2025 Estimated GFR (MDRD) Non-Af Amer 88 mL/min >60 [facility] Comment on above: Non- GFR Calc GFR/1.73 sq M.predicted among non-blacks MDRD (S/P/Bld) [Vol rate/Area] 88 mL/min/{1.73_m2} >60 [facility] Comment on above: Non- GFR Calc Glucose Ql (U)Ordered By: Ramón Villanueva on 01-08-2025 Urine Glucose (UA) Normal mg/dl Normal [facility] Glucose measurementOrdered B y: ED PROVIDER on 01-08-2025 Glucose [Mass/Vol] 119 mg/dL High 74-106 [facility] Comment on above: Fasting Glucose resu lt from 100 to 125 mg/dL suggests IMPAIRED HOMEOSTASIS per A.D.A. criteria. Hematocrit Auto (Bld) [Volum e fraction]Ordered By: ED PROVIDER on 01-08-2025 Hematocrit (Bld) [Volume fraction] 43.8 % 37-47 [facility] Hemoglobin measurementOrdere d By: ED PROVIDER on 01-08-2025 Hemoglobin (Bld) [Mass/Vol] 14.7 g/dL 12.0-15.0 [facility] Immature granulocytes/100 WB C Auto (Bld)Ordered By: ED PROVIDER on 01-08-2025 Immature granulocytes/100 WBC (Bld) 0.300 % 0.0-0.9 [facility] Comment on above: IG% - Immature Granu locytes (promyelocytes, myelocytes and metamyelocytes) > 1% indicates that a LEFT SHIFT is Present. Ketones Test strip Ql (U)Ord ered By: Isaiah Villanueva on 01-08-2025 Ketones Ql (U) Negative Negative [facility] Laboratory - Chemistry and C hemistry - challengeOrdered By: ED PROVIDER on 01-08-2025 AST [Catalytic activity/Vol] 16 U/L 15-37 [facility] Lipaseon 01-08-2025 Lipase [Catalytic activity/Vol] 18 U/L Low 73-393 [facility] Comment on above: Performed By: #### L 100.0100, L501.2450, L500.4050 ####[facility] [address] [place], [address] Lipase measurementOrdered By : ED PROVIDER on 01-08-2025 Lipase [Catalytic activity/Vol] 18 U/L Low 73-393 [facility] Lymphocytes Auto (Unsp spec) [#/Vol]Ordered By: ED PROVIDER on 01-08-2025 Lymphocytes (Bld) [#/Vol] 1.90 10*3/uL 0.83-4.51 [facility] Lymphocytes/100 WBC Auto (Un sp spec)Ordered By: ED PROVIDER on 01-08-2025 Lymphocytes/100 WBC (Bld) 20.3 % 19-41 [facility] MCV (mean corpuscular volume ) determinationOrdered By: ED PROVIDER on 01-08-2025 MCV (RBC) [Entitic vol] 88.7 fL 81-99 [facility] Mean corpuscular hemoglobin (MCH) determinationOrdered By: ED PROVIDER on 01-08-2025 MCH (RBC) [Entitic mass] 29.8 pg 27.0-32.0 [facility] Mean corpuscular hemoglobin concentration (MCHC) determinationOrdered By: ED PROVIDER on 01-08-2025 MCHC (RBC) [Mass/Vol] 33.6 g/dL 32-36 [facility] Mean platelet volume determi nationOrdered By: ED PROVIDER on 01-08-2025 Platelet mean volume (Bld) [Entitic vol] 9.7 fL 6.2-12.0 [facility] Microscopic analysis of urin e for red blood cells (RBC)Ordered By: Isaiah Villanueva on 01-08-2025 Microscopic analysis of urine for red blood cells (RBC) 0-5 SEEN /hpf 0-5 [facility] Urine RBC 0-5 SEEN /hpf 0-5 [facility] Monocyte percentageOrdered B y: ED PROVIDER on 01-08-2025 Monocytes/100 WBC (Bld) 6.3 % 0-10 [facility] Mucus LM Ql (Urine sed)Order ed By: Isaiah Villanueva on 01-08-2025 Mucus Ql (Urine sed) 1+ /hpf [facility] Neutrophil percentageOrdered By: ED PROVIDER on 01-08-2025 Neutrophils/100 WBC (Bld) 70.7 % High 47-70 [facility] Nitrite Test strip Ql (U)Ord ered By: Isaiah Villanueva on 01-08-2025 Nitrite Ql (U) Negative Negative [facility] Nucleated red blood cell per centageOrdered By: ED PROVIDER on 01-08-2025 Nucleated RBC/100 WBC (Bld) [Ratio] 0 % 0-5 [facility] Platelet countOrdered By: ED PROVIDER on 01-08-2025 Platelets (Bld) [#/Vol] 237 10*3/uL 150-450 [facility] Potassium measurementOrdered By: ED PROVIDER on 01-08-2025 Potassium [Moles/Vol] 4.4 mmol/L 3.5-5.1 [facility] Protein Test strip Ql (U)Ord ered By: Isaiah Villanueva on 01-08-2025 Protein Ql (U) 30 mg/dl High Negative [facility] RBC Auto (Bld) [#/Vol]Ordere d By: ED PROVIDER on 01-08-2025 RBC (Bld) [#/Vol] 4.94 10*6/uL 4.2-5.4 [facility] Serum anion gap measurementO rdered By: ED PROVIDER on 01-08-2025 Anion gap [Moles/Vol] 7 mmol/L 5-15 [facility] Serum globulin measurementOr dered By: ED PROVIDER on 01-08-2025 Globulin (S) [Mass/Vol] 5.4 g/dL High 2.2-4.2 [facility] Serum or plasma alanine del rio otransferase (ALT) measurementOrdered By: ED PROVIDER on 01-08-2025 ALT [Catalytic activity/Vol] 23 U/L 13-56 [facility] Serum or plasma albumin cass urement (mass/volume)Ordered By: ED PROVIDER on 01-08-2025 Albumin [Mass/Vol] 3.0 g/dL Low 3.2-5.0 [facility] Serum or plasma alkaline tre sphatase measurementOrdered By: ED PROVIDER on 01-08-2025 ALP [Catalytic activity/Vol] 98 U/L 45-117 [facility] Serum or plasma calcium cass urement (mass/volume)Ordered By: ED PROVIDER on 01-08-2025 Calcium [Mass/Vol] 9.5 mg/dL 8.5-10.1 [facility] Serum or plasma creatinine m easurement (mass/volume)Ordered By: ED PROVIDER on 01-08-2025 Creatinine [Mass/Vol] 0.73 mg/dL 0.55-1.02 [facility] Comment on above: The validity of the calculated GFR & GFRAA in patients over 70 years has not been determined. Clinical correlation is essential. Serum or plasma urea nitroge n measurement (mass/volume)Ordered By: ED PROVIDER on 01-08-2025 Urea nitrogen [Mass/Vol] 14 mg/dL 7-18 [facility] Sodium levelOrdered By: ED P VINITA on 01-08-2025 Sodium [Moles/Vol] 136 mmol/L 136-145 [facility] Squamous epithelial cells de tection in urine sediment by light microscopyOrdered By: Isaiah Villanueva on 01-08-2025 Epithelial cells.squamous LM Ql (Urine sed) 0-5 SEEN /hpf 5-10 [facility] Total proteinOrdered By: ED PROVIDER on 01-08-2025 Protein [Mass/Vol] 8.4 g/dL High 6.4-8.2 [facility] Urinalysis, Completeon 01-08 BACTERIA 2+ /hpf Normal None Seen [facility] Comment on above: Order Comment: COLOR OF URINE MAY AFFECT DIPSTICK RESULTS.CLEAN CATCH Performed By: #### L 400.0001 ####[facility] [address] [place], [place], [id number] EPI,SQUAMOUS 0-5 SEEN Normal 5-10 [facility] Comment on above: Order Comment: COLOR OF URINE MAY AFFECT DIPSTICK RESULTS.CLEAN CATCH Performed By: #### L 400.0001 ####[facility] [address] [place], [place], [id number] Mucus Ql (Urine sed) 1+ /hpf Normal [facility] Comment on above: Order Comment: COLOR OF URINE MAY AFFECT DIPSTICK RESULTS.CLEAN CATCH Performed By: #### L 400.0001 ####[facility] [address] [place], [address] RBC 0-5 SEEN Normal 0-5 [facility] Comment on above: Order Comment: COLOR OF URINE MAY AFFECT DIPSTICK RESULTS.CLEAN CATCH Performed By: #### L 400.0001 ####[facility] [address] [place], [address] WBC 5-10 SEEN Normal 0-5 [facility] Comment on above: Order Comment: COLOR OF URINE MAY AFFECT DIPSTICK RESULTS.CLEAN CATCH Performed By: #### L 400.0001 ####[facility] [address] [place], [address] Urine blood detectionOrdered By: Isaiah Villanueva on 01-08-2025 Urine Occult Blood 50 /ul High Negative [facility] Urine clarityOrdered By: Misty Villanueva on 01-08-2025 Clarity (U) Sl. Cloudy Clear [facility] Urine color determinationOrd ered By: Isaiah Villanueva on 01-08-2025 Color (U) Mirna Yellow [facility] Urine cultureOrdered By: Rose Santos on 01-08-2025 Bacteria identified Cx Nom (U) Positive Abnormal [facility] Urine glucose detectionOrder ed By: Isaiah Villanueva on 01-08-2025 Glucose Ql (U) Normal mg/dl Normal [facility] Urine leukocyte esterase det ection by dipstickOrdered By: Isaiah Villanueva on 01-08-2025 Leukocyte esterase Test strip Ql (U) 100 /ul High Negative [facility] Urine pHOrdered By: Isaiah ventura on 01-08-2025 pH (U) 6.0 [pH] 5.0 - 8.0 [facility] Urine sediment bacteria coun t by microscopy (number/high power field)Ordered By: Isaiah Villanueva on 01-08-2025 Bacteria LM.HPF (Urine sed) [#/Area] 2 /[HPF] None Seen [facility] Urine specific gravity measu rementOrdered By: Isaiah Villanueva on 01-08-2025 Specific gravity (U) [Rel density] 1.015 1.002-1.030 [facility] Urine urobilinogen measureme ntOrdered By: Isaiah Villanueva on 01-08-2025 Urobilinogen Ql (U) 4 mg/dl High Normal [facility] Urobilinogen Ql (U)Ordered B y: Isaiah Villanueva on 01-08-2025 Urobilinogen (U) [Mass/Vol] 4 mg/dL High Normal [facility] White blood cell (WBC) count Ordered By: ED PROVIDER on 01-08-2025 WBC (Bld) [#/Vol] 9.4 10*3/uL 4.4-11.0 [facility] White blood cell countOrdere d By: Isaiah Villanueva on 01-08-2025 Urine WBC 5-10 SEEN /hpf 0-5 [facility] White blood cell count 5-10 SEEN /hpf 0-5 [facility] Bacteria Ur Culton Bacteria identified Cx Nom (U) ORGANISM ID: 1 10,000 -<50,000 CFU/ml Normal urogenital marianela Normal [facility] Comment on above: Performed By: #### 6 30-4 ####[facility] LABCLIA [id number] [address] OF [facility] CNOVon 12-24-2024 CNOV Office Visit (UCWSTR ) -- UZMA MCDONALD ([id number]) 1970 F Date Time Provider Department 12/24/24 1:45 PM ISAÍAS RIBEIRO [facility] During your visit today, we recorded the following information about you: Temperature Pulse Respiration Blood pressure 97.8 degrees 80/minute 18/minute 126/68 Weight 110.6 kg Isaías Ribeiro APRN.WATER QUALITY TESTER 12/24/2024 2:08 PM Signed Subjective HPI Nontoxic-appearing [...] lens implant PAST SURGICAL HISTORY OF 03/31/2021 [employer] stent REBEL CORONARY PLAT CHROMIUM BARE METAL STENT SYS [id number], 144 CM 06/26/2014 REMOVAL GALLBLADDER 2013 SUPRACERVICAL [...] or oc (more content not included)... Normal [facility] Mock UA DIP, URINE (POC)on 2024 BILIRUBIN UA (POCT) Negative Negative [facility] CLARITY UA (POCT) Slightly Cloudy Cl [facility] COLOR UA (POCT) Dark yellow [facility] GLUCOSE UA (POCT) Negative Negative mg/dL [facility] Hemoglobin Ql (U) Moderate Abnormal [facility] Interpretation and review of laboratory results Abnormal [facility] KETONE UA (POCT) Negative Negative mg/dL [facility] LEUKOCYTES UA (POCT) Trace Abnormal Negative [facility] NITRITE UA (POCT) Negative [facility] PH UA (POCT) 6.5 4.5 - 8.0 [facility] Protein Ql (U) 100 mg/dL Abnormal Negative [facility] SPECIFIC GRAVITY UA (POCT) 1.025 1.005 - 1.030 [facility] UROBILINOGEN UA (POCT) 1 Judith l E.U./dL [facility] Location:[address], [place], [place], [address] [place] [address] POINT OF CARE [facility] Manish 10-03-2024 JAIRON Telephone (DORIS) -- UZMA MCDONALD ([id number]) 1970 F Date Time Provider Department 10/03/24 [facility] During your visit today, we recorded the following information about you: Susy Smith APRN.WATER QUALITY TESTER 10/03/2024 8:16 AM Signed Please let patient [...] 10/03/24, was reviewed by pt same day. Cierra Pineda MA Allergies As of Date: 10/03/2024 (No Known Allergies) Date Reviewed: 08/02/2024 Reviewed by: Isaías Ribeiro APRN.WATER QUALITY TESTER - Fully Assessed Reason for Visit: Results [...] 30-34.9 [E66.811] 06/29/2022 Coronary artery disease of [place] heart with st*07/27/2022 Hyperlipidemia, mixed [E78.2] 07/27/2022 Hyperglycemia [R73.9] 07/28/2022 Dizziness [R42] 12/10/2022 Heart murmur [R01.1] 05/27/2022 History of anemia [Z86.2] 01/26/2023 Menorrhagia with irregular cycle [N92.1] 11/30/2022 Encounter Status:Closed by CIERRA PINEDA on 10/09/24 Normal [facility] SCREENING W David 09-29 [facility] SCREENING W ALFONSO * * *Final Report* * * DATE OF EXAM: Sep 29 2024 1:34PM WRW [id number] - BRITTANY SCREENING W ALFONSO / PROCEDURE REASON: Encounter for screening mammogram for breast cancer * * * * Physician Interpretation * * * * RESULT: [facility] [address] [place] [address] HISTORY: Patient is 54 years old and [...] patient has dense breast tissue. Interpreting Radiologist: Reggie Kang M.D. Electronically signed on: 10/03/2024 Naturopathic Doctor: PAU Transcribe Date/Time: Sep 29 2024 1:22P Dictated by: REGGIE KANG MD This examination was interpreted and the report reviewed and electronically signed by: REGGIE KANG MD on Oct 03 2024 1:30AM EST [id number] Normal [facility] Manish 09-25-2024 RICHY Telephone (RDXWS) -- UZMA MCDONALD ([id number]) 1970 F Date Time Provider Department 09/25/24 MACKENZIE FINK RDXWS During your visit today, we recorded the following information about you: Gabby Elizondo [employer] 09/25/2024 1:42 PM Signed Could we have a mammogram screening order STAT! Pt schedule today at 1450. Thanks a Susy Coffman APRN.WATER QUALITY TESTER 09/25/2024 2:23 PM Signed Ordered Allergies As of Date: 09/25/2024 (No Known Allergies) Date Reviewed: 08/02/2024 Reviewed by: Isaías Ribeiro APRN.WATER QUALITY TESTER - Fully Assessed Reason for Visit: Orders [681] Primary Visit Diagnosis:Encounter for screening mammogram for breast cancer [Z12.31] Order(s):BRITTANY SCREENING W ALFONSO [[id number]] Order #: [id number] FUTURE Prescriptions as of 09/25/2024 - albuterol [...] 30-34.9 [E66.811] 06/29/2022 Coronary artery disease of [place] heart with st*07/27/2022 Hyperlipidemia, mixed [E78.2] 07/27/2022 Hyperglycemia [R73.9] 07/28/2022 Dizziness [R42] 12/10/2022 Heart murmur [R01.1] 05/27/2022 History of anemia [Z86.2] 01/26/2023 Menorrhagia with irregular cycle [N92.1] 11/30/2022 Encounter Status:Closed by GLADIS LAKE on 09/25/24 Normal [facility] CNOVon 08-02-2024 CNOV Office Visit (UCWSTR ) -- UZMA MCDONALD ([id number]) 1970 F Date Time Provider Department 08/02/24 6:45 PM ISAÍAS RIBEIRO [facility] During your visit today, we recorded the following information about you: Temperature Pulse Respiration Blood pressure 98 degrees 93/minute 20/minute 119/76 Weight 111.5 kg Isaías Ribeiro APRN.WATER QUALITY TESTER 08/02/2024 7:54 PM Signed Subjective HPI Nontoxic-appearing [...] CORONARY PLAT CHROMIUM BARE METAL STENT SYS [id number], 144 CM 06/26/2014 REMOVAL GALLBLADDER 2013 SUPRACERVICAL [...] motion. Lymphad (more content not included)... Normal [facility] 08-02-2024 [facility] Telephone ([facility]) -- UZMA MCDONALD ([id number]) 1970 F Date Time Provider Department 08/02/24 ISAÍAS RIBEIRO [facility] During your visit today, we recorded the following information about you: Isaías Ribeiro APRN.[facility] 08/02/2024 7:52 PM Signed Please inform patient that chest x-ray is negative. Continue plan of care as discussed during visit. Hazel Marshall LPN 08/02/2024 7:58 PM Signed Patient notified.Hazel Marshall LPN Allergies As of Date: 08/02/2024 (No Known Allergies) Date Reviewed: 08/02/2024 Reviewed by: Isaías Ribeiro APRN.WATER QUALITY TESTER - Fully Assessed Reason for Visit: Results [...] 30-34.9 [E66.9] 06/29/2022 Coronary artery disease of [place] heart with st*07/27/2022 Hyperlipidemia, mixed [E78.2] 07/27/2022 Hyperglycemia [R73.9] 07/28/2022 Dizziness [R42] 12/10/2022 Heart murmur [R01.1] 05/27/2022 History of anemia [Z86.2] 01/26/2023 Menorrhagia with irregular cycle [N92.1] 11/30/2022 Encounter Status:Closed by HAZEL MARSHALL on 08/02/24 Normal [facility] XR CHEST 2V FRONTAL/LATon XR [...] tissues: Unremarkable. IMPRESSION: No acute radiographic abnormality. Naturopathic Doctor: [facility] Transcribe Date/Time: Aug 02 2024 7:48P Dictated by : MARIA ELENA JONES MD This examination was interpreted and the report reviewed and electronically signed by: MARIA ELENA JONES MD on Aug 02 2024 7:48PM EST [id number] Normal [facility] XR Chest PA and Lateralon IMPRESSION: No acute radiographic abnormality. Naturopathic Doctor: [facility] Transcribe Date/Time: Aug 02 2024 7:48P [...] Unremarkable. IMPRESSION IMPRESSION: No acute radiographic abnormality. Naturopathic Doctor: PSCB Transcribe Date/Time: Aug 02 2024 7:48P Dictated by : MARIA ELENA JONES MD This examination was interpreted and the report reviewed and electronically signed by: MARIA ELENA JONES MD on Aug 02 2024 7:48PM EST [facility] Radiology Study observation (narrative) [facility] XR Chest PA and LateralOrder ed By: Ccf Provider on 08-02-2024 [facility] CNOVon 04-18-2024 CNOV Office Visit (UCWSTR ) -- UZMA MCDONALD ([id number]) 1970 F Date Time Provider Department 04/18/24 12:15 PM [facility] During your visit today, we recorded the following information about you: Temperature Pulse Respiration Blood pressure 98.5 degrees 98/minute 16/minute 118/68 Weight 112.4 kg Juana Linton, SREEDHAR.WATER QUALITY TESTER 04/18/2024 1:22 PM Signed This note was [...] history is provided by the patient. No specialized language instructor was used. URI She complains of [...] CORONARY PLAT CHROMIUM BARE METAL STENT SYS [id number], 144 CM 06/26/2014 REMOVAL GALLBLADDER 2013 SUPRACERVICAL [...] (more content not included)... Normal [facility] CNOVon 03-23-2024 CNOV Office Visit (UCWSTR ) -- UZMA MCDONALD ([id number]) 1970 F Date Time Provider Department 03/23/24 10:30 AM MILENA VAUGHAN [facility] During your visit today, we recorded the following information about you: Temperature Pulse Respiration Blood pressure 97.6 degrees 109/minute 16/minute 138/64 Weight 114.3 kg Milena Vaughan APRN.CNP 03/23/2024 11:01 AM Addendum ASSESSMENT/PLAN: [...] analgesia. - Discussed expected course of illness Milena Vaughan APRN.CNP ACUTE BRONCHITIS: You have acute [...] improve after 3 days of proper treatment. Milena Vaughan APRN.WATER QUALITY TESTER 03/23/2024 11:07 AM Signed Subjective Cough Associated [...] CORONARY PLAT CHROMIUM BARE METAL STENT SYS [id number], 144 CM 06/26/2014 REMOVAL GALLBLADDER 2013 SUPRACERVICAL [...] (more content not included)... Normal [facility] BRITTANY SCREENINGon 09-17-2023 [facility] XR Hand - right PA and Later al and Obliqueon 01-28-2023 IMPRESSION: Negative 3 views of the right hand. Naturopathic Doctor: LING Transcribe Date/Time: Jan 28 2023 8:19A Dictated by : BAILEE SYKES MD This examination was interpreted and the report reviewed and electronically signed by: BAILEE SYKES MD on Jan 28 2023 8:22AM [facility] DIVISION OF RADIOLOGY * * [...] swelling. DIVISION OF RADIOLOGY Provider, Wilman tolentino Alvord - 01/28/2023 * * *Final Report* * [...] Negative 3 views of the right hand. Naturopathic Doctor: LING Transcribe Date/Time: Jan 28 2023 8:19A Dictated by : BAILEE SYKES MD This examination was interpreted and the report reviewed and electronically signed by: BAILEE SYKES MD on Jan 28 2023 8:22AM EST [facility] XR Hand - right PA and Later al and ObliqueOrdered By: Ccf Provider on 01-28-2023 [facility] No Panel Informationon 01-26 Radiology Study observation (narrative) [facility] XR ELBOW GENERAL 2V AP/LAT R IGHTon 01-26-2023 [facility] XR Elbow - right AP and Late ralon 01-26-2023 IMPRESSION: Mild sof t tissue calcification. Please clinically correlate. Naturopathic Doctor: LING Transcribe Date/Time: Jan 26 2023 4:49P [...] the lateral epicondyle. DIVISION OF RADIOLOGY [facility] * * *Final Report* * [...] Mild soft tissue calcification. Please clinically correlate. Naturopathic Doctor: LING Transcribe Date/Time: Jan 26 2023 4:49P Dictated by : BAILEE SYKES MD This examination was interpreted and the report reviewed and electronically signed by: BAILEE SYKES MD on Jan 26 2023 4:51PM [facility] Basophil percentageOrdered B y: Dr. Michel on 12-08-2022 Bilirubin [Mass/Vol] 0.40 mg/dL 0.20-1.00 [facility] Comment on above: For patients on eltr ombopag therapy, use of Dimension Borger TBIL is not recommended. Cholesterol [Mass/Vol] 161 mg/dL <200 [facility] Comment on above: <200 mg/dL Desirable 200-240 mg/dL Borderline >240 mg/dL High Risk Protein [Mass/Vol] 7.7 g/dL 6.4-8.2 [facility] Triglyceride [Mass/Vol] 182 mg/dL <199 [facility] Comment on above: The drugs N-Acetylcy steine and Metamizole may falsely depress this assay.Serum Triglycerides Reference Interval Normal <150 mg/dL Borderline high 150 - 199 mg/dL High 200 - 499 mg/dL Very High > or = 500 mg/dL Direct bilirubinOrdered By: Dr. Michel on 12-08-2022 Bilirubin.direct [Mass/Vol] 0.11 mg/dL 0.00-0.30 [facility] Laboratory - Chemistry and C hemistry - challengeOrdered By: Dr. Michel on 12-08-2022 ALP [Catalytic activity/Vol] 114 U/L 45-117 [facility] ALT [Catalytic activity/Vol] 46 U/L 13-56 [facility] Globulin (S) [Mass/Vol] 4.1 g/dL 2.2-4.2 [facility] Serum or plasma albumin cass urement (mass/volume)Ordered By: Dr. Michel on 12-08-2022 Albumin [Mass/Vol] 3.6 g/dL 3.2-5.0 [facility] Serum or plasma cholesterol in HDL measurement (mass/volume)Ordered By: Dr. Michel on 12-08-2022 Cholesterol in HDL [Mass/Vol] 37 mg/dL >40 [facility] Comment on above: The drugs N-Acetylcy steine and Metamizole may falsely depress this assay. Reference Range HDL <40 mg/dL Low HDL Cholesterol HDL >or= 60 mg/dL High HDL Cholesterol Serum or plasma cholesterol in VLDL measurement (mass/volume)Ordered By: Dr. Michel on 12-08-2022 Cholesterol in VLDL [Mass/Vol] 36 mg/dL 5-40 [facility] Serum or plasma low density lipoprotein (LDL) cholesterol measurement (mass/volume)Ordered By: Dr. Michel on 12-08-2022 Cholesterol in LDL [Mass/Vol] 88 mg/dL 0-130 [facility] Thin prep Papanicolaou smear with manual screeningOrdered By: Dr. Michel on 12-08-2022 Thin prep Papanicolaou smear with manual screening 23 U/L 15-37 [facility] Basophil percentageOrdered B y: Cristin Pettit on 11-30-2022 Chloride [Moles/Vol] 105 mmol/L 98-107 [facility] Glucose [Mass/Vol] 171 mg/dL 74-106 [facility] Comment on above: Fasting Glucose resu lt greater than or equal to 126 mg/dL suggests DIABETES MELLITUS per A.D.A. criteria. Potassium [Moles/Vol] 3.8 mmol/L 3.5-5.1 [facility] Sodium [Moles/Vol] 140 mmol/L 136-145 [facility] WBC (Bld) [#/Vol] 6.3 10*3/uL 4.4-11.0 [facility] Blood erythrocytes count (nu mber/volume)Ordered By: Cristin Pettit on 11-30-2022 RBC (Bld) [#/Vol] 4.88 10*6/uL 4.2-5.4 [facility] Blood hemoglobin measurement (mass/volume)Ordered By: Cristin Pettit on 11-30-2022 Hemoglobin (Bld) [Mass/Vol] 15.0 g/dL 12.0-15.0 [facility] Blood platelet mean volumeOr dered By: Cristin Pettit on 11-30-2022 Platelet mean volume (Bld) [Entitic vol] 9.6 fL 6.2-12.0 [facility] Determination of erythrocyte mean corpuscular volume (MCV)Ordered By: Cristin Pettit on 11-30-2022 MCV (RBC) [Entitic vol] 91.6 fL 81-99 [facility] Hematocrit Auto (Bld) [Volum e fraction]Ordered By: Cristin Pettit on 11-30-2022 Hematocrit (Bld) [Volume fraction] 44.7 % 37-47 [facility] Laboratory - Chemistry and C hemistry - challengeOrdered By: Cristin Pettit on 11-30-2022 CO2 [Moles/Vol] 29.0 mmol/L 21.0-32.0 [facility] Magnesium [Mass/Vol] 2.1 mg/dL 1.6-2.6 [facility] Urea nitrogen/Creatinine [Mass ratio] 13.7 mg/mg 10-20 [facility] Laboratory - Hematology and Cell countsOrdered By: Cristin Pettit on 11-30-2022 Erythrocyte distribution width (RBC) [Entitic vol] 45.7 fL 35.1-43.9 [facility] Erythrocyte distribution width (RBC) [Ratio] 13.5 % 11.6-14.6 [facility] MCH (RBC) [Entitic mass] 30.7 pg 27.0-32.0 [facility] MCHC Auto (RBC) [Mass/Vol]Or dered By: Cristin Pettit on 11-30-2022 MCHC (RBC) [Mass/Vol] 33.6 g/dL 32-36 [facility] No Panel InformationOrdered By: Cristin Pettit on 11-30-2022 Estimated GFR (MDRD) Amer 107 mL/min >60 [facility] Comment on above: GFR Calc Estimated GFR (MDRD) Non-Af Amer 89 mL/min >60 [facility] Comment on above: Non- GFR Calc Thyroid Stimulating Hormone (TSH) 2.02 uIU/mL 0.358-3.74 [facility] Platelets bldOrdered By: Prieto Pettit on 11-30-2022 Platelets (Bld) [#/Vol] 215 10*3/uL 150-450 [facility] Serum or plasma calcium cass urement (mass/volume)Ordered By: Cristin Pettit on 11-30-2022 Calcium [Mass/Vol] 8.9 mg/dL 8.5-10.1 [facility] Serum or plasma creatinine m easurement (mass/volume)Ordered By: Cristin Pettit on 11-30-2022 Creatinine [Mass/Vol] 0.73 mg/dL 0.55-1.02 [facility] Comment on above: The validity of the calculated GFR & GFRAA in patients over 70 years has not been determined. Clinical correlation is essential. Serum or plasma urea nitroge n measurement (mass/volume)Ordered By: Cristin Pettit on 11-30-2022 Urea nitrogen [Mass/Vol] 10 mg/dL 7-18 [facility] Thin prep Papanicolaou smear with manual screeningOrdered By: Cristin Pettit on 11-30-2022 Thin prep Papanicolaou smear with manual screening 6 5-15 [facility] BRITTANY SCREENINGon 07-30-2022 [facility] Basophil percentageon 2021 WBC (Bld) [#/Vol] 7.1 10*3/uL 4.4-11.0 [facility] Work Phone: Blood erythrocytes count (nu mber/volume)on 05-29-2022 RBC (Bld) [#/Vol] 4.36 10*6/uL 4.2-5.4 [facility] Work Phone: Blood hemoglobin measurement (mass/volume)on 05-29-2022 Hemoglobin (Bld) [Mass/Vol] 10.9 g/dL 12.0-15.0 [facility] Work Phone: Blood platelet mean volumeon 05-29-2022 Platelet mean volume (Bld) [Entitic vol] 10.1 fL 6.2-12.0 [facility] Work Phone: Determination of erythrocyte mean corpuscular volume (MCV)on 05-29-2022 MCV (RBC) [Entitic vol] 81.0 fL 81-99 [facility] Work Phone: Glucose Glucometer (BldC) [M ass/Vol]on 05-29-2022 Glucose [Mass/Vol] 167 mg/dL 74-106 [facility] Work Phone: Comment on above: MANAGEMENT OF PATIEN T CARE PER NURSING PROTOCOL Hematocrit Auto (Bld) [Volum e fraction]on 05-29-2022 Hematocrit (Bld) [Volume fraction] 35.3 % 37-47 [facility] Work Phone: Laboratory - Hematology and Cell countson 05-29-2022 Erythrocyte distribution width (RBC) [Entitic vol] 52.6 fL 35.1-43.9 [facility] Work Phone: Erythrocyte distribution width (RBC) [Ratio] 17.8 % 11.6-14.6 [facility] Work Phone: MCH (RBC) [Entitic mass] 25.0 pg 27.0-32.0 [facility] Work Phone: MCHC Auto (RBC) [Mass/Vol]on 05-29-2022 MCHC (RBC) [Mass/Vol] 30.9 g/dL 32-36 [facility] Work Phone: Platelets bldon 05-29-2022 Platelets (Bld) [#/Vol] 176 10*3/uL 150-450 [facility] Work Phone: Basophil percentageon 2021 Chloride [Moles/Vol] 107 mmol/L 98-107 [facility] Work Phone: Glucose [Mass/Vol] 97 mg/dL 74-106 [facility] Work Phone: [phone] Potassium [Moles/Vol] 4.1 mmol/L 3.5-5.1 [facility] Work Phone: [phone] Sodium [Moles/Vol] 139 mmol/L 136-145 [facility] Work Phone: INR in Blood by Coagulation assayon 05-25-2022 INR Coag (Bld) [Relative time] 1.1 {INR} [facility] Work Phone: Laboratory - Chemistry and C hemistry - challengeon 05-25-2022 CO2 [Moles/Vol] 25.0 mmol/L 21.0-32.0 [facility] Work Phone: Urea nitrogen/Creatinine [Mass ratio] 14.7 mg/mg 10-20 [facility] Work Phone: Magnesium [Mass/Vol] 2.1 mg/dL 1.6-2.6 [facility] Work Phone: Laboratory - Coagulationon 0 05-25-2022 aPTT Coag (Bld) [Time] 27.4 s 24.1-36.2 [facility] Work Phone: [phone] PT Coag (PPP) [Time] 13.8 s 11.7-14.9 [facility] Work Phone: No Panel Informationon 05-25 Estimated GFR (MDRD) Amer 117 mL/min >60 [facility] Work Phone: Comment on above: GFR Calc Estimated GFR (MDRD) Non-Af Amer 97 mL/min >60 [facility] Work Phone: Comment on above: Non- GFR Calc Serum or plasma calcium cass urement (mass/volume)on 05-25-2022 Calcium [Mass/Vol] 8.7 mg/dL 8.5-10.1 [facility] Work Phone: Serum or plasma creatinine m easurement (mass/volume)on 05-25-2022 Creatinine [Mass/Vol] 0.68 mg/dL 0.55-1.02 [facility] [place] [place] Work Phone: Comment on above: The validity of the calculated GFR & GFRAA in patients over 70 years has not been determined. Clinical correlation is essential. Serum or plasma urea nitroge n measurement (mass/volume)on 05-25-2022 Urea nitrogen [Mass/Vol] 10 mg/dL 7-18 [facility] Work Phone: Thin prep Papanicolaou smear with manual screeningon 05-25-2022 Thin prep Papanicolaou smear with manual screening 7 5-15 [facility] Work Phone: XR CHEST 2V FRONTAL/LATon [facility] XR Chest PA and Lateralon IMPRESSION: No acute radiographic abnormality. Naturopathic Doctor: LING Transcribe Date/Time: Apr 23 2022 11:16A [...] cardiomediastinal silhouette. Bones and soft tissues: Unremarkable. JUN_DO_NOT_ USE_DIVISIO N OF RADIOLOGY Provider, Wilman Corey [facility] - 04/23/2022 * * *Final Report* [...] Unremarkable. IMPRESSION IMPRESSION: No acute radiographic abnormality. Naturopathic Doctor: PSCB Transcribe Date/Time: Apr 23 2022 11:16A Dictated by : MARCELLA TORRES MD This examination was interpreted and the report reviewed and electronically signed by: MARCELLA TORRES MD on Apr 23 2022 11:18AM EST [facility] Radiology Study observation (narrative) [facility] XR Chest PA and LateralOrder ed By: Ccf Provider on 04-23-2022 [facility] Vital Signs Date Time Vital [facility] 08-16-2025 15:30-0400 Body height 170.[address] Mackenzie Fink MD Work Phone: [facility] 08-16-2025 15:30-0400 Body mass index (BMI) [Ratio] 32.5 kg/m2 Dr. Mackenzie Fink MD Work Phone: [facility] 08-16-2025 15:30-0400 Body temperature 98 [degF] Dr. Mackenzie Fink MD Work Phone: [facility] 08-16-2025 15:30-0400 Body weight 94.[address] Mackenzie Fink MD Work Phone: 7(682)382-869374 [place] [address] 08-16-2025 15:30-0400 Diastolic blood pressure 77 mm[Hg] Dr. Mackenzie Fink MD Work Phone: 3(603)292-828974 [place] [address] 08-16-2025 15:30-0400 Heart rate 93 /min Dr. Mackenzie Fink MD Work Phone: 8(378)897-009674 [place] [address] 08-16-2025 15:30-0400 Respiratory rate 18 /min Dr. Mackenzie Fink MD Work Phone: 3(083)768-456774 [place] [address] 08-16-2025 15:30-0400 SaO2% (BldA) [Mass fraction] 97 % Dr. Mackenzie Fink MD Work Phone: 8(531)574-598074 [place] [address] 08-16-2025 15:30-0400 Systolic blood pressure 113 mm[Hg] Dr. Mackenzie Fink MD Work Phone: 2(975)990-359774 [place] [address] 08-09-2025 13:22-0400 Body height 170.[address] Mackenzie Fink MD Work Phone: 2(044)410-779674 [place] [address] 08-09-2025 13:22-0400 Body weight 93.[address] Mackenzie iFnk MD Work Phone: 5(301)177-960774 [place] [address] 08-09-2025 11:06-0400 Body mass index (BMI) [Ratio] 32.3 kg/m2 Dr. Mackenzie Fink MD Work Phone: 7(353)011-881874 [place] [address] 08-09-2025 11:06-0400 Body temperature 98.2 [degF] Dr. Mackenzie Fink MD Work Phone: 2(479)788-380574 [place] [address] 08-09-2025 11:06-0400 Body weight 93.[address] Mackenzie Fink MD Work Phone: 8(052)407-747674 [place] [address] 08-09-2025 11:06-0400 Diastolic blood pressure 75 mm[Hg] Dr. Mackenzie Fink MD Work Phone: 5(840)315-074774 [place] [address] 08-09-2025 11:06-0400 Heart rate 78 /min Dr. Mackenzie Fink MD Work Phone: 1(623)137-898374 [place] [address] 08-09-2025 11:06-0400 Respiratory rate 18 /min Dr. Mackenzie Fink MD Work Phone: 6(106)569-039874 [place] [address] 08-09-2025 11:06-0400 SaO2% (BldA) [Mass fraction] 98 % Dr. Mackenzie Fink MD Work Phone: 4(828)613-501174 [place] [address] 08-09-2025 11:06-0400 Systolic blood pressure 111 mm[Hg] Dr. Mackenzie Fink MD Work Phone: 9(081)773-189074 [place] [address] 07-19-2025 12:59-0400 Body height 170.[address] Mackenzie Fink MD Work Phone: 1(487)787-626974 [place] [address] 07-19-2025 12:59-0400 Body temperature 97.2 [degF] Dr. Mackenzie Fink MD Work Phone: 0(069)936-753974 [place] [address] 07-19-2025 12:59-0400 Diastolic blood pressure 54 mm[Hg] Dr. Mackenzie Fink MD Work Phone: 9(389)622-648174 [place] [address] 07-19-2025 12:59-0400 Heart rate 73 /min Dr. Mackenzie Fink MD Work Phone: 6(840)617-608374 [place] [address] 07-19-2025 12:59-0400 Respiratory rate 18 /min Dr. Mackenzie Fink MD Work Phone: 7(816)259-550774 [place] [address] 07-19-2025 12:59-0400 SaO2% (BldA) [Mass fraction] 97 % Dr. Mackenzie Fink MD Work Phone: 4(932)188-237974 [place] [address] 07-19-2025 12:59-0400 Systolic blood pressure 94 mm[Hg] Dr. Mackenzie Fink MD Work Phone: 4(191)636-003574 [place] [address] 07-19-2025 12:31-0400 Diastolic blood pressure 59 mm[Hg] Dr. Mackenzie Fink MD Work Phone: 1(788)633-828574 [place] [address] 07-19-2025 12:31-0400 Heart rate 66 /min Dr. Mackenzie Fink MD Work Phone: 3(627)996-380674 [place] [address] 07-19-2025 12:31-0400 Respiratory rate 16 /min Dr. Mackenzie Fink MD Work Phone: 9(683)790-653774 [place] [address] 07-19-2025 12:31-0400 SaO2% (BldA) [Mass fraction] 99 % Dr. Mackenzie Fink MD Work Phone: 7(652)182-915474 [place] [address] 07-19-2025 12:31-0400 Systolic blood pressure 98 mm[Hg] Dr. Mackenzie Fink MD Work Phone: 1(470)324-251974 [place] [address] 07-18-2025 13:12-0400 Body temperature 98.4 [degF] Dr. Mackenzie Fink MD Work Phone: 7(599)410-684174 [place] [address] 07-18-2025 13:12-0400 Diastolic blood pressure 72 mm[Hg] Dr. Mackenzie Fink MD Work Phone: 6(615)164-024974 [place] [address] 07-18-2025 13:12-0400 Heart rate 75 /min Dr. Mackenzie Fink MD Work Phone: 2(985)278-116774 [place] [address] 07-18-2025 13:12-0400 Respiratory rate 16 /min Dr. Mackenzie Fink MD Work Phone: 5(090)037-077474 [place] [address] 07-18-2025 13:12-0400 SaO2% (BldA) [Mass fraction] 100 % Dr. Mackenzie Fink MD Work Phone: 6(065)487-872774 [place] [address] 07-18-2025 13:12-0400 Systolic blood pressure 113 mm[Hg] Dr. Mackenzie Fink MD Work Phone: 9(130)911-062674 [place] [address] 07-17-2025 13:55-0400 Body height 170.[address] Mackenzie Fink MD Work Phone: 8(739)996-022674 [place] [address] 07-17-2025 13:55-0400 Body weight 98.[address] Mackenzie Fink MD Work Phone: 4(140)281-833874 [place] [address] 07-16-2025 16:13-0400 Body mass index (BMI) [Ratio] 33.9 kg/m2 Dr. Mackenzie Fink MD Work Phone: 6(591)267-783674 [place] [address] 07-16-2025 14:00-0400 Body temperature 99.7 [degF] Dr. Mackenzie Fink MD Work Phone: 6(057)492-911874 [place] [address] 07-16-2025 14:00-0400 Diastolic blood pressure 66 mm[Hg] Dr. Mackenzie Fink MD Work Phone: 5(252)990-560874 [place] [address] 07-16-2025 14:00-0400 Heart rate 98 /min Dr. Mackenzie Fink MD Work Phone: 5(730)656-882974 [place] [address] 07-16-2025 14:00-0400 Respiratory rate 18 /min Dr. Mackenzie Fink MD Work Phone: 5(303)266-199174 [place] [address] 07-16-2025 14:00-0400 SaO2% (BldA) [Mass fraction] 94 % Dr. Mackenzie Fink MD Work Phone: 1(757)570-241174 [place] [address] 07-16-2025 14:00-0400 Systolic blood pressure 135 mm[Hg] Dr. Mackenzie Fink MD Work Phone: 0(158)135-102174 [place] [address] 07-16-2025 09:19-0400 Body height 170.[address] Mackenzie Fink MD Work Phone: 5(490)143-940374 [place] [address] 07-16-2025 09:19-0400 Body mass index (BMI) [Ratio] 34.6 kg/m2 Dr. Mackenzie Fink MD Work Phone: 1(505)851-712574 [place] [address] 07-16-2025 09:19-0400 Body weight 100.[address] Mackenzie Fink MD Work Phone: 1(765)798-852174 [place] [address] 07-12-2025 12:59-0400 Body weight 97.[address] Mackenzie Fink MD Work Phone: 9(453)933-554374 [place] [address] 07-12-2025 09:28-0400 Body height 170.[address] Mackenzie Fink MD Work Phone: 6(109)704-599774 [place] [address] 07-12-2025 09:28-0400 Body mass index (BMI) [Ratio] 33.5 kg/m2 Dr. Mackenzie Fink MD Work Phone: 7(056)475-058574 [place] [address] 07-12-2025 09:28-0400 Body temperature 98.4 [degF] Dr. Mackenzie Fink MD Work Phone: 0(044)791-889374 [place] [address] 07-12-2025 09:28-0400 Body weight 97.[address] Mackenzie Fink MD Work Phone: 6(819)168-461174 [place] [address] 07-12-2025 09:28-0400 Diastolic blood pressure 75 mm[Hg] Dr. Mackenzie Fink MD Work Phone: 9(485)863-602074 [place] [address] 07-12-2025 09:28-0400 Heart rate 76 /min Dr. Mackenzie Fink MD Work Phone: 2(061)898-287174 [place] [address] 07-12-2025 09:28-0400 Respiratory rate 18 /min Dr. Mackenzie Fink MD Work Phone: 1(934)037-985774 [place] [address] 07-12-2025 09:28-0400 SaO2% (BldA) [Mass fraction] 100 % Dr. Mackenzie Fink MD Work Phone: 9(494)536-085574 [place] [address] 07-12-2025 09:28-0400 Systolic blood pressure 112 mm[Hg] Dr. Mackenzie Fink MD Work Phone: 7(983)738-365474 [place] [address] 06-28-2025 09:44-0400 Body height 170.[address] Mackenzie Fink MD Work Phone: 7(022)662-918674 [place] [address] 06-28-2025 09:44-0400 Body mass index (BMI) [Ratio] 32.5 kg/m2 Dr. Mackenzie Fink MD Work Phone: 1(085)832-871674 [place] [address] 06-28-2025 09:44-0400 Body temperature 96.9 [degF] Dr. Mackenzie Fink MD Work Phone: 8(520)462-994574 [place] [address] 06-28-2025 09:44-0400 Body weight 94.[address] Mackenzie Fink MD Work Phone: 3(605)476-982774 [place] [address] 06-28-2025 09:44-0400 Diastolic blood pressure 66 mm[Hg] Dr. Mackenzie Fink MD Work Phone: 9(652)888-646874 [place] [address] 06-28-2025 09:44-0400 Heart rate 76 /min Dr. Mackenzie Fink MD Work Phone: 2(432)949-524974 [place] [address] 06-28-2025 09:44-0400 Respiratory rate 18 /min Dr. Mackenzie Fink MD Work Phone: 1(506)846-497474 [place] [address] 06-28-2025 09:44-0400 SaO2% (BldA) [Mass fraction] 99 % Dr. Mackenzie Fink MD Work Phone: 7(565)685-536874 [place] [address] 06-28-2025 09:44-0400 Systolic blood pressure 108 mm[Hg] Dr. Mackenzie Fink MD Work Phone: 2(392)986-968874 [place] [address] 06-14-2025 10:18-0400 Body height 170.[address] Mcakenzie Fink MD Work Phone: 3(947)147-921274 [place] [address] 06-14-2025 10:18-0400 Body mass index (BMI) [Ratio] 33.4 kg/m2 Dr. Mackenzie Fink MD Work Phone: 0(105)205-201574 [place] [address] 06-14-2025 10:18-0400 Body temperature 98.2 [degF] Dr. Mackenzie Fink MD Work Phone: 0(193)427-836374 [place] [address] 06-14-2025 10:18-0400 Body weight 96.[address] Mackenzie Fink MD Work Phone: 9(925)276-854474 [place] [address] 06-14-2025 10:18-0400 Diastolic blood pressure 64 mm[Hg] Dr. Mackenzie Fink MD Work Phone: 7(197)619-307174 [place] [address] 06-14-2025 10:18-0400 Heart rate 80 /min Dr. Mackenzie Fink MD Work Phone: 6(569)489-569474 [place] [address] 06-14-2025 10:18-0400 Respiratory rate 18 /min Dr. Mackenzie Fink MD Work Phone: 1(101)842-625374 [place] [address] 06-14-2025 10:18-0400 SaO2% (BldA) [Mass fraction] 100 % Dr. Mackenzie Fink MD Work Phone: 6(429)863-471274 [place] [address] 06-14-2025 10:18-0400 Systolic blood pressure 102 mm[Hg] Dr. Mackenzie Fink MD Work Phone: 3(706)186-086274 [place] [address] 06-07-2025 09:27-0400 Body height 170.[address] Mackenzie Fink MD Work Phone: 5(155)004-626774 [place] [address] 06-07-2025 09:27-0400 Body mass index (BMI) [Ratio] 32.9 kg/m2 Dr. Mackenzie Fink MD Work Phone: 1(626)827-738674 [place] [address] 06-07-2025 09:27-0400 Body temperature 98.2 [degF] Dr. Mackenzie Fink MD Work Phone: 7(566)522-852274 [place] [address] 06-07-2025 09:27-0400 Body weight 95.[address] Mackenzie Fink MD Work Phone: 0(534)895-392974 [place] [address] 06-07-2025 09:27-0400 Diastolic blood pressure 69 mm[Hg] Dr. Mackenzie Fink MD Work Phone: 6(440)821-048574 [place] [address] 06-07-2025 09:27-0400 Heart rate 77 /min Dr. Mackenzie Fink MD Work Phone: 3(865)959-292774 [place] [address] 06-07-2025 09:27-0400 Respiratory rate 16 /min Dr. Mackenzie Fink MD Work Phone: 7(946)389-007474 [place] [address] 06-07-2025 09:27-0400 SaO2% (BldA) [Mass fraction] 99 % Dr. Mackenzie Fink MD Work Phone: 3(348)586-261874 [place] [address] 06-07-2025 09:27-0400 Systolic blood pressure 107 mm[Hg] Dr. Mackenzie Fink MD Work Phone: 0(242)346-043874 [place] [address] 05-31-2025 10:16-0400 Body height 170.[address] Mackenzie Fink MD Work Phone: 6(823)130-813074 [place] [address] 05-31-2025 10:16-0400 Body mass index (BMI) [Ratio] 32.4 kg/m2 Dr. Mackenzie Fink MD Work Phone: 8(568)864-554474 [place] [address] 05-31-2025 10:16-0400 Body temperature 98.1 [degF] Dr. Mackenzie Fink MD Work Phone: 0(163)451-278174 [place] [address] 05-31-2025 10:16-0400 Body weight 93.[address] Mackenzie Fink MD Work Phone: 2(850)749-908274 [place] [address] 05-31-2025 10:16-0400 Diastolic blood pressure 71 mm[Hg] Dr. Mackenzie Fink MD Work Phone: 4(983)124-629674 [place] [address] 05-31-2025 10:16-0400 Heart rate 82 /min Dr. Mackenzie Fink MD Work Phone: 4(818)378-945074 [place] [address] 05-31-2025 10:16-0400 Respiratory rate 16 /min Dr. Mackenzie Fink MD Work Phone: 5(608)959-124674 [place] [address] 05-31-2025 10:16-0400 SaO2% (BldA) [Mass fraction] 99 % Dr. Mackenzie Fink MD Work Phone: 2(443)370-594374 [place] [address] 05-31-2025 10:16-0400 Systolic blood pressure 107 mm[Hg] Dr. Mackenzie Fink MD Work Phone: 2(807)875-582174 [place] [address] 05-17-2025 09:52-0400 Body height 170.[address] Mackenzie Fink MD Work Phone: 8(880)114-232774 [place] [address] 05-17-2025 09:46-0400 Body mass index (BMI) [Ratio] 33.2 kg/m2 Dr. Mackenzie Fink MD Work Phone: 1(627)846-641174 [place] [address] 05-17-2025 09:46-0400 Body temperature 96.9 [degF] Dr. Mackenzie Fink MD Work Phone: 4(088)714-786774 [place] [address] 05-17-2025 09:46-0400 Body weight 96.[address] Mackenzie Fink MD Work Phone: 6(404)658-987574 [place] [address] 05-17-2025 09:46-0400 Diastolic blood pressure 68 mm[Hg] Dr. Mackenzie Fink MD Work Phone: 5(148)715-651974 [place] [address] 05-17-2025 09:46-0400 Heart rate 80 /min Dr. Mackenzie Fink MD Work Phone: 4(526)716-767674 [place] [address] 05-17-2025 09:46-0400 Respiratory rate 18 /min Dr. Mackenzie Fink MD Work Phone: 9(365)249-529074 [place] [address] 05-17-2025 09:46-0400 SaO2% (BldA) [Mass fraction] 95 % Dr. Mackenzie Fink MD Work Phone: 8(877)667-359574 [place] [address] 05-17-2025 09:46-0400 Systolic blood pressure 102 mm[Hg] Dr. Mackenzie Fink MD Work Phone: 8(922)398-395874 [place] [address] 05-10-2025 10:12-0400 Body height 170.[address] Mackenzie Fink MD Work Phone: 1(339)120-442874 [place] [address] 05-10-2025 10:12-0400 Body mass index (BMI) [Ratio] 33.5 kg/m2 Dr. Mackenzie Fink MD Work Phone: 2(169)665-105674 [place] [address] 05-10-2025 10:12-0400 Body temperature 98.3 [degF] Dr. Mackenzie Fink MD Work Phone: 4(329)806-988774 [place] [address] 05-10-2025 10:12-0400 Body weight 97.[address] Mackenzie Fink MD Work Phone: 3(447)750-131074 [place] [address] 05-10-2025 10:12-0400 Diastolic blood pressure 72 mm[Hg] Dr. Mackenzie Fink MD Work Phone: 1(392)460-157074 [place] [address] 05-10-2025 10:12-0400 Heart rate 76 /min Dr. Mackenzie Fink MD Work Phone: 2(650)997-729474 [place] [address] 05-10-2025 10:12-0400 Respiratory rate 18 /min Dr. Mackenzie Fink MD Work Phone: 7(873)523-723974 [place] [address] 05-10-2025 10:12-0400 SaO2% (BldA) [Mass fraction] 97 % Dr. Mackenzie Fink MD Work Phone: 9(123)920-826474 [place] [address] 05-10-2025 10:12-0400 Systolic blood pressure 112 mm[Hg] Dr. Mackenzie Fink MD Work Phone: 6(529)414-035274 [place] [address] 05-04-2025 22:14-0400 Body temperature 99.2 [degF] Dr. Mackenzie Fink MD Work Phone: 9(185)120-021874 [place] [address] 05-04-2025 22:14-0400 Diastolic blood pressure 71 mm[Hg] Dr. Mackenzie Fink MD Work Phone: 5(874)640-926074 [place] [address] 05-04-2025 22:14-0400 Heart rate 91 /min Dr. Mackenzie Fink MD Work Phone: 3(217)265-605874 [place] [address] 05-04-2025 22:14-0400 Respiratory rate 17 /min Dr. Mackenzie Fink MD Work Phone: 0(158)203-879874 [place] [address] 05-04-2025 22:14-0400 SaO2% (BldA) [Mass fraction] 96 % Dr. Mackenzie Fink MD Work Phone: 7(887)452-086174 [place] [address] 05-04-2025 22:14-0400 Systolic blood pressure 104 mm[Hg] Dr. Mackenzie Fink MD Work Phone: 8(263)972-263874 [place] [address] 05-04-2025 17:59-0400 Body height 170.[address] Mackenzie Fink MD Work Phone: 9(630)671-099074 [place] [address] 05-04-2025 17:59-0400 Body mass index (BMI) [Ratio] 33.3 kg/m2 Dr. Mackenzie Fink MD Work Phone: 3(615)125-356974 [place] [address] 05-04-2025 17:59-0400 Body weight 96.[address] Mackenzie Fink MD Work Phone: 3(564)257-547074 [place] [address] 05-03-2025 11:01-0400 Body height 170.[address] Mackenzie Fink MD Work Phone: 4(568)348-846474 [place] [address] 05-03-2025 11:01-0400 Body mass index (BMI) [Ratio] 33.5 kg/m2 Dr. Mackenzie Fink MD Work Phone: 6(510)542-076474 [place] [address] 05-03-2025 11:01-0400 Body temperature 98.7 [degF] Dr. Mackenzie Fink MD Work Phone: 4(896)435-083674 [place] [address] 05-03-2025 11:01-0400 Body weight 97.[address] Mackenzie Fink MD Work Phone: 0(553)263-623674 [place] [address] 05-03-2025 11:01-0400 Diastolic blood pressure 71 mm[Hg] Dr. Mackenzie Fink MD Work Phone: 4(182)588-515774 [place] [address] 05-03-2025 11:01-0400 Heart rate 85 /min Dr. Mackenzie Fink MD Work Phone: 2(098)694-881874 [place] [address] 05-03-2025 11:01-0400 Respiratory rate 18 /min Dr. Mackenzie Fink MD Work Phone: 1(400)077-425374 [place] [address] 05-03-2025 11:01-0400 SaO2% (BldA) [Mass fraction] 99 % Dr. Mackenzie Fink MD Work Phone: 1(073)124-674574 [place] [address] 05-03-2025 11:01-0400 Systolic blood pressure 107 mm[Hg] Dr. Mackenzie Fink MD Work Phone: 8(037)915-027974 [place] [address] 04-28-2025 23:42-0400 Body temperature 99.7 [degF] Dr. Mackenzie Fink MD Work Phone: 7(817)480-721574 [place] [address] 04-28-2025 23:42-0400 Diastolic blood pressure 57 mm[Hg] Dr. Mackenzie Fink MD Work Phone: 1(393)128-958674 [place] [address] 04-28-2025 23:42-0400 Heart rate 88 /min Dr. Mackenzie Fink MD Work Phone: 8(931)518-342474 [place] [address] 04-28-2025 23:42-0400 Respiratory rate 15 /min Dr. Mackenzie Fink MD Work Phone: 4(310)331-862674 [place] [address] 04-28-2025 23:42-0400 SaO2% (BldA) [Mass fraction] 99 % Dr. Mackenzie Fink MD Work Phone: 4(261)345-465674 [place] [address] 04-28-2025 23:42-0400 Systolic blood pressure 115 mm[Hg] Dr. Mackenzie Fink MD Work Phone: 3(360)201-371274 [place] [address] 04-28-2025 19:29-0400 Body height 170.[address] Mackenzie Fink MD Work Phone: 2(544)515-524774 [place] [address] 04-28-2025 19:29-0400 Body mass index (BMI) [Ratio] 34.4 kg/m2 Dr. Mackenzie Fink MD Work Phone: 5(473)612-830774 [place] [address] 04-28-2025 19:29-0400 Body weight 99.[address] Mackenzie Fink MD Work Phone: 3(236)120-817774 [place] [address] 04-26-2025 09:19-0400 Body height 170.[address] Mackenzie Fink MD Work Phone: 8(480)365-577074 [place] [address] 04-26-2025 09:19-0400 Body mass index (BMI) [Ratio] 34 kg/m2 Dr. Mackenzie Fink MD Work Phone: 8(478)807-730374 [place] [address] 04-26-2025 09:19-0400 Body temperature 97.4 [degF] Dr. Mackenzie Fink MD Work Phone: 5(760)685-667674 [place] [address] 04-26-2025 09:19-0400 Body weight 98.[address] Mackenzie Fink MD Work Phone: 2(014)266-047574 [place] [address] 04-26-2025 09:19-0400 Diastolic blood pressure 74 mm[Hg] Dr. Mackenzie Fink MD Work Phone: 1(227)300-737174 [place] [address] 04-26-2025 09:19-0400 Heart rate 64 /min Dr. Mackenzie Fink MD Work Phone: 0(493)431-044074 [place] [address] 04-26-2025 09:19-0400 Respiratory rate 16 /min Dr. Mackenzie Fink MD Work Phone: 1(545)118-881674 [place] [address] 04-26-2025 09:19-0400 SaO2% (BldA) [Mass fraction] 95 % Dr. Mackenzie Fink MD Work Phone: 1(650)750-228574 [place] [address] 04-26-2025 09:19-0400 Systolic blood pressure 116 mm[Hg] Dr. Mackenzie Fink MD Work Phone: 2(698)428-677174 [place] [address] 04-19-2025 09:06-0400 Body height 170.[address] Mackenzie Fink MD Work Phone: 2(981)780-560974 [place] [address] 04-19-2025 09:06-0400 Body mass index (BMI) [Ratio] 34.9 kg/m2 Dr. Mackenzie Fink MD Work Phone: 1(557)471-703274 [place] [address] 04-19-2025 09:06-0400 Body temperature 98.5 [degF] Dr. Mackenzie Fink MD Work Phone: 4(845)755-709874 [place] [address] 04-19-2025 09:06-0400 Body weight 101.[address] Mackenzie Fink MD Work Phone: 3(197)562-662474 [place] [address] 04-19-2025 09:06-0400 Diastolic blood pressure 74 mm[Hg] Dr. Mackenzie Fink MD Work Phone: 0(184)222-878374 [place] [address] 04-19-2025 09:06-0400 Heart rate 80 /min Dr. Mackenzie Fink MD Work Phone: 7(083)708-903374 [place] [address] 04-19-2025 09:06-0400 Respiratory rate 16 /min Dr. Mackenzie Fink MD Work Phone: 2(343)895-808774 [place] [address] 04-19-2025 09:06-0400 SaO2% (BldA) [Mass fraction] 94 % Dr. Mackenzie Fink MD Work Phone: 2(622)981-927974 [place] [address] 04-19-2025 09:06-0400 Systolic blood pressure 131 mm[Hg] Dr. Mackenzie Fink MD Work Phone: 9(479)960-264274 [place] [address] 04-18-2025 10:46-0400 Body height 170.[address] Mackenzie Fink MD Work Phone: 0(496)022-702474 [place] [address] 04-18-2025 10:46-0400 Body mass index (BMI) [Ratio] 34.9 kg/m2 Dr. Mackenzie Fink MD Work Phone: 7(324)737-544374 [place] [address] 04-18-2025 10:46-0400 Body weight 101.[address] Mackenzie Fink MD Work Phone: 9(759)358-804574 [place] [address] 04-18-2025 10:46-0400 Diastolic blood pressure 78 mm[Hg] Dr. Mackenzie Fink MD Work Phone: 7(139)018-565574 [place] [address] 04-18-2025 10:46-0400 Heart rate 80 /min Dr. Mackenzie Fink MD Work Phone: 8(037)805-344474 [place] [address] 04-18-2025 10:46-0400 Respiratory rate 16 /min Dr. Mackenzie Fink MD Work Phone: 5(707)378-504774 [place] [address] 04-18-2025 10:46-0400 Systolic blood pressure 118 mm[Hg] Dr. Mackenzie Fink MD Work Phone: 2(365)011-402974 [place] [address] 04-04-2025 14:17-0400 Body height 170.[address] Mackenzie Fink MD Work Phone: 4(992)106-848974 [place] [address] 04-04-2025 14:13-0400 Body mass index (BMI) [Ratio] 35.2 kg/m2 Dr. Mackenzie Fink MD Work Phone: 4(024)397-841074 [place] [address] 04-04-2025 14:13-0400 Body temperature 98.2 [degF] Dr. Mackenzie Fink MD Work Phone: 9(986)140-365674 [place] [address] 04-04-2025 14:13-0400 Body weight 102.[address] Mackenzie Fink MD Work Phone: 4(519)195-653074 [place] [address] 04-04-2025 14:13-0400 Diastolic blood pressure 80 mm[Hg] Dr. Mackenzie Fink MD Work Phone: 6(544)344-020574 [place] [address] 04-04-2025 14:13-0400 Heart rate 83 /min Dr. Mackenzie Fink MD Work Phone: 8(049)486-246974 [place] [address] 04-04-2025 14:13-0400 Respiratory rate 16 /min Dr. Mackenzie Fink MD Work Phone: 8(426)381-888374 [place] [address] 04-04-2025 14:13-0400 SaO2% (BldA) [Mass fraction] 98 % Dr. Mackenzie Fink MD Work Phone: 6(332)880-893374 [place] [address] 04-04-2025 14:13-0400 Systolic blood pressure 125 mm[Hg] Dr. Mackenzie Fink MD Work Phone: 3(461)317-647574 [place] [address] 04-02-2025 13:15-0400 Body temperature 97.9 [degF] Dr. Mackenzie Fink MD Work Phone: 7(261)736-428474 [place] [address] 04-02-2025 13:15-0400 Diastolic blood pressure 62 mm[Hg] Dr. Mackenzie Fink MD Work Phone: 3(218)718-969374 [place] [address] 04-02-2025 13:15-0400 Heart rate 60 /min Dr. Mackenzie Fink MD Work Phone: 1(465)839-354274 [place] [address] 04-02-2025 13:15-0400 Respiratory rate 16 /min Dr. Mackenzie Fink MD Work Phone: 9(795)978-116774 [place] [address] 04-02-2025 13:15-0400 SaO2% (BldA) [Mass fraction] 96 % Dr. Mackenzie Fink MD Work Phone: 6(364)133-487874 [place] [address] 04-02-2025 13:15-0400 Systolic blood pressure 116 mm[Hg] Dr. Mackenzie Fink MD Work Phone: 9(318)291-154774 [place] [address] 04-02-2025 12:45-0400 Inhaled oxygen flow rate 2 L/min Dr. Mackenzie Fink MD Work Phone: 7(820)510-699774 [place] [address] 04-02-2025 10:06-0400 Body height 170.[address] Mackenzie Fink MD Work Phone: 1(708)772-710274 [place] [address] 04-02-2025 10:06-0400 Body mass index (BMI) [Ratio] 35.2 kg/m2 Dr. Mackenzie Fink MD Work Phone: 8(186)803-572274 [place] [address] 04-02-2025 10:06-0400 Body weight [address] Mackenzie Fink MD Work Phone: 5(804)932-661374 [place] [address] 03-29-2025 14:36-0400 Body weight 102.[address] Mackenzie Fink MD Work Phone: 8(219)965-119774 [place] [address] 03-28-2025 15:36-0400 Body height 170.[address] Mackenzie Fink MD Work Phone: 1(619)923-886274 [place] [address] 03-28-2025 15:36-0400 Body mass index (BMI) [Ratio] 35.3 kg/m2 Dr. Mackenzie Fink MD Work Phone: 0(640)305-520874 [place] [address] 03-28-2025 15:36-0400 Body temperature 96.7 [degF] Dr. Mackenzie Fink MD Work Phone: 7(804)382-812174 [place] [address] 03-28-2025 15:36-0400 Body weight 102.[address] Mackenzie Fink MD Work Phone: 5(293)342-185674 [place] [address] 03-28-2025 15:36-0400 Diastolic blood pressure 77 mm[Hg] Dr. Mackenzie Fink MD Work Phone: 5(708)700-478174 [place] [address] 03-28-2025 15:36-0400 Heart rate 78 /min Dr. Mackenzie Fink MD Work Phone: 1(737)383-399874 [place] [address] 03-28-2025 15:36-0400 Respiratory rate 18 /min Dr. Mackenzie Fink MD Work Phone: 3(705)004-455274 [place] [address] 03-28-2025 15:36-0400 SaO2% (BldA) [Mass fraction] 95 % Dr. Mackenzie Fink MD Work Phone: 6(247)925-777874 [place] [address] 03-28-2025 15:36-0400 Systolic blood pressure 111 mm[Hg] Dr. Mackenzie Fink MD Work Phone: 1(615)480-190574 [place] [address] 03-26-2025 13:32-0400 Body weight 102.[address] Mackenzie Fink MD Work Phone: 7(543)974-377374 [place] [address] 03-26-2025 13:32-0400 Diastolic blood pressure 80 mm[Hg] Dr. Mackenzie Fink MD Work Phone: 0(297)783-896274 [place] [address] 03-26-2025 13:32-0400 Heart rate 96 /min Dr. Mackenzie Fink MD Work Phone: 0(579)711-630374 [place] [address] 03-26-2025 13:32-0400 Respiratory rate 17 /min Dr. Mackenzie Fink MD Work Phone: 5(629)813-022274 [place] [address] 03-26-2025 13:32-0400 SaO2% (BldA) [Mass fraction] 95 % Dr. Mackenzie Fink MD Work Phone: [facility] 03-26-2025 13:32-0400 Systolic blood pressure 121 mm[Hg] Dr. Mackenzie Fink MD Work Phone: [facility] 03-21-2025 13:28-0400 Body temperature 97 [degF] Christopher Cunningham MD Work Phone: [facility] 03-21-2025 13:28-0400 Body weight 102.56 kg Christopher Cunningham MD Work Phone: 0(441)314-665643 [place] [address] 03-21-2025 13:28-0400 Diastolic blood pressure 57 mm[Hg] Christopher Cunningham MD Work Phone: 4(838)765-509248 [address] 03-21-2025 13:28-0400 Heart rate 64 /min Christopher Cunningham MD Work Phone: 1(600)667-485148 [address] 03-21-2025 13:28-0400 Respiratory rate 18 /min Christopher Cunningham MD Work Phone: 5(806)176-669643 [place] [address] 03-21-2025 13:28-0400 SaO2% (BldA) [Mass fraction] 99 % Christopher Cunningham MD Work Phone: 9(357)883-690748 [address] 03-21-2025 13:28-0400 Systolic blood pressure 123 mm[Hg] Christopher Cunningham MD Work Phone: 6(407)141-826348 [address] 02-26-2025 11:18-0400 Body mass index (BMI) [Ratio] 34.9 kg/m2 Dr. Mackenzie Fink MD Work Phone: [facility] 02-26-2025 11:18-0400 Body temperature 98.5 [degF] Dr. Mackenzie Fink MD Work Phone: [facility] 02-26-2025 11:18-0400 Body weight 101.[address] Mackenzie Fink MD Work Phone: [facility] 02-26-2025 11:18-0400 Diastolic blood pressure 75 mm[Hg] Dr. Mackenzie Fink MD Work Phone: [facility] 02-26-2025 11:18-0400 Heart rate 76 /min Dr. Mackenzie Fink MD Work Phone: [facility] 02-26-2025 11:18-0400 Respiratory rate 18 /min Dr. Mackenzie Fink MD Work Phone: [facility] 02-26-2025 11:18-0400 SaO2% (BldA) [Mass fraction] 96 % Dr. Mackenzie Fink MD Work Phone: [facility] 02-26-2025 11:18-0400 Systolic blood pressure 116 mm[Hg] Dr. Mackenzie Fink MD Work Phone: [facility] 02-14-2025 13:52-0400 Body height 170.2 cm Gladis Herbert LEAD SOFTWARE TEST ENGINEER - WATER QUALITY TESTER Work Phone: [facility] 02-14-2025 13:52-0400 Body mass index (BMI) [Ratio] 34.64 kg/m2 Gladis Herbert LEAD SOFTWARE TEST ENGINEER - WATER QUALITY TESTER Work Phone: [facility] 02-14-2025 13:52-0400 Body weight 100.34 kg Gladis Herbert LEAD SOFTWARE TEST ENGINEER - WATER QUALITY TESTER Work Phone: [facility] 02-14-2025 13:52-0400 Diastolic blood pressure 78 mm[Hg] Gladis Herbert LEAD SOFTWARE TEST ENGINEER - WATER QUALITY TESTER Work Phone: [facility] 02-14-2025 13:52-0400 Heart rate 80 /min Gladis Herbert LEAD SOFTWARE TEST ENGINEER - WATER QUALITY TESTER Work Phone: [facility] 02-14-2025 13:52-0400 Systolic blood pressure 122 mm[Hg] Gladis Herbert LEAD SOFTWARE TEST ENGINEER - WATER QUALITY TESTER Work Phone: [facility] 01-27-2025 09:10-0400 Body temperature 96.49 [degF] Darvin Grady MD Work Phone: [facility] 01-27-2025 09:10-0400 Diastolic blood pressure 51 mm[Hg] Darvin Grady MD Work Phone: [facility] 01-27-2025 09:10-0400 Heart rate 59 /min Darvin Grady MD Work Phone: [facility] 01-27-2025 09:10-0400 Respiratory rate 18 /min Darvin Grady MD Work Phone: [facility] 01-27-2025 09:10-0400 SaO2% (BldA) [Mass fraction] 94 % Darvin Grady MD Work Phone: [facility] 01-27-2025 09:10-0400 Systolic blood pressure 97 mm[Hg] Darvin Grady MD Work Phone: [facility] 01-26-2025 06:40-0400 Body height 170.2 cm Darvin Grady MD Work Phone: [facility] 01-26-2025 06:40-0400 Body mass index (BMI) [Ratio] 35.21 kg/m2 Darvin Grady MD Work Phone: [facility] 01-26-2025 06:40-0400 Body weight 102 kg Darvin Grady MD Work Phone: [facility] 01-17-2025 10:23-0500 Body height 170.2 cm Darvin Grady MD Work Phone: [facility] 01-17-2025 10:23-0500 Body mass index (BMI) [Ratio] 36.98 kg/m2 Darvin Grady MD Work Phone: [facility] 01-17-2025 10:23-0500 Body weight 107.09 kg Darvin Grady MD Work Phone: [facility] 01-17-2025 10:23-0500 Diastolic blood pressure 68 mm[Hg] Darvin Grady MD Work Phone: [facility] 01-17-2025 10:23-0500 Heart rate 69 /min Darvin Grady MD Work Phone: [facility] 01-17-2025 10:23-0500 SaO2% (BldA) [Mass fraction] 95 % Darvin Grady MD Work Phone: [facility] 01-17-2025 10:23-0500 Systolic blood pressure 122 mm[Hg] Darvin Grady MD Work Phone: [facility] 01-10-2025 13:05-0500 Body height 170.[address] Mackenzie Fink MD Work Phone: 8(229)608-669160 [address] 01-10-2025 13:05-0500 Body mass index (BMI) [Ratio] 37.3 kg/m2 Dr. Mackenzie Fink MD Work Phone: 5(593)184-118474 [place] [address] 01-10-2025 13:05-0500 Body temperature 96.6 [degF] Dr. Mackenzie Fink MD Work Phone: 0(682)983-869174 [place] [address] 01-10-2025 13:05-0500 Body weight 108.[address] Mackenzie Fink MD Work Phone: 7(352)842-013074 [place] [address] 01-10-2025 13:05-0500 Diastolic blood pressure 72 mm[Hg] Dr. Mackenzie Fink MD Work Phone: 7(100)964-342327 [place] [address] 01-10-2025 13:05-0500 Heart rate 74 /min Dr. Mackenzie Fink MD Work Phone: 3(576)618-067027 [place] [address] 01-10-2025 13:05-0500 Respiratory rate 18 /min Dr. Mackenzie Fink MD Work Phone: 5(833)091-371127 [place] [address] 01-10-2025 13:05-0500 SaO2% (BldA) [Mass fraction] 93 % Dr. Mackenzie Fink MD Work Phone: 7(506)406-443127 [place] [address] 01-10-2025 13:05-0500 Systolic blood pressure 110 mm[Hg] Dr. Mackenzie Fink MD Work Phone: 4(557)651-461374 [place] [address] 01-08-2025 21:55-0500 Body temperature 98.3 [degF] Dr. Mackenzie Fink MD Work Phone: [facility] 01-08-2025 21:55-0500 Diastolic blood pressure 89 mm[Hg] Dr. Mackenzie Fink MD Work Phone: [facility] 01-08-2025 21:55-0500 Heart rate 78 /min Dr. Mackenzie Fink MD Work Phone: [facility] 01-08-2025 21:55-0500 Respiratory rate 16 /min Dr. Mackenzie Fink MD Work Phone: [facility] 01-08-2025 21:55-0500 SaO2% (BldA) [Mass fraction] 98 % Dr. Mackenzie Fink MD Work Phone: [facility] 01-08-2025 21:55-0500 Systolic blood pressure 128 mm[Hg] Dr. Mackenzie Fink MD Work Phone: [facility] 01-08-2025 17:57-0500 Body mass index (BMI) [Ratio] 36.7 kg/m2 Dr. Mackenzie Fink MD Work Phone: [facility] 01-08-2025 17:57-0500 Body weight 106.[address] Mackenzie Fink MD Work Phone: [facility] 12-24-2024 13:51-0500 Body mass index (BMI) [Ratio] 38.19 kg/m2 Isaías Ribeiro APRN.WATER QUALITY TESTER Work Phone: [facility] 12-24-2024 13:51-0500 Body temperature 97.81 [degF] Isaías Ribeiro LEAD SOFTWARE TEST ENGINEER.WATER QUALITY TESTER Work Phone: [facility] 12-24-2024 13:51-0500 Body weight 110.6 kg Isaías Ribeiro APRN.WATER QUALITY TESTER Work Phone: [facility] 12-24-2024 13:51-0500 Diastolic blood pressure 68 mm[Hg] Isaías Ribeiro APRN.WATER QUALITY TESTER Work Phone: [facility] 12-24-2024 13:51-0500 Heart rate 80 /min Isaías Pendlebury LEAD SOFTWARE TEST ENGINEER.WATER QUALITY TESTER Work Phone: [facility] 12-24-2024 13:51-0500 Respiratory rate 18 /min Isaías Pendlebury LEAD SOFTWARE TEST ENGINEER.WATER QUALITY TESTER Work Phone: [facility] 12-24-2024 13:51-0500 SaO2% (BldA) [Mass fraction] 96 % Isaías Pendlebury LEAD SOFTWARE TEST ENGINEER.WATER QUALITY TESTER Work Phone: [facility] 12-24-2024 13:51-0500 Systolic blood pressure 126 mm[Hg] Isaías Pendlebury LEAD SOFTWARE TEST ENGINEER.WATER QUALITY TESTER Work Phone: [facility] 08-02-2024 18:51-0400 Body mass index (BMI) [Ratio] 38.5 kg/m2 Isaías Pendlebury LEAD SOFTWARE TEST ENGINEER.WATER QUALITY TESTER Work Phone: [facility] 08-02-2024 18:51-0400 Body temperature 98.01 [degF] [facility] LEAD SOFTWARE TEST ENGINEER.WATER QUALITY TESTER Work Phone: [facility] 08-02-2024 18:51-0400 Body weight 111.5 kg [facility] LEAD SOFTWARE TEST ENGINEER.WATER QUALITY TESTER Work Phone: [facility] 08-02-2024 18:51-0400 Diastolic blood pressure 76 mm[Hg] Isaías Pendlebury LEAD SOFTWARE TEST ENGINEER.WATER QUALITY TESTER Work Phone: [facility] 08-02-2024 18:51-0400 Heart rate 93 /min Isaías Pendlebury LEAD SOFTWARE TEST ENGINEER.WATER QUALITY TESTER Work Phone: [facility] 08-02-2024 18:51-0400 Respiratory rate 20 /min [facility] LEAD SOFTWARE TEST ENGINEER.WATER QUALITY TESTER Work Phone: [facility] 08-02-2024 18:51-0400 SaO2% (BldA) [Mass fraction] 94 % Isaías Pendbury LEAD SOFTWARE TEST ENGINEER.WATER QUALITY TESTER Work Phone: [facility] 08-02-2024 18:51-0400 Systolic blood pressure 119 mm[Hg] Isaías Pendlebury LEAD SOFTWARE TEST ENGINEER.WATER QUALITY TESTER Work Phone: [facility] 04-18-2024 12:13-0400 Body mass index (BMI) [Ratio] 38.81 kg/m2 Juana Linton LEAD SOFTWARE TEST ENGINEER.WATER QUALITY TESTER Work Phone: [facility] 04-18-2024 12:13-0400 Body temperature 98.49 [degF] Juana Linton LEAD SOFTWARE TEST ENGINEER.WATER QUALITY TESTER Work Phone: [facility] 04-18-2024 12:13-0400 Body weight 112.4 kg Juana Linton LEAD SOFTWARE TEST ENGINEER.WATER QUALITY TESTER Work Phone: [facility] 04-18-2024 12:13-0400 Diastolic blood pressure 68 mm[Hg] Juana Linton LEAD SOFTWARE TEST ENGINEER.WATER QUALITY TESTER Work Phone: [facility] 04-18-2024 12:13-0400 Heart rate 98 /min Juana Linton LEAD SOFTWARE TEST ENGINEER.WATER QUALITY TESTER Work Phone: [facility] 04-18-2024 12:13-0400 Respiratory rate 16 /min Juana Linton LEAD SOFTWARE TEST ENGINEER.WATER QUALITY TESTER Work Phone: [facility] 04-18-2024 12:13-0400 SaO2% (BldA) [Mass fraction] 95 % Juana Linton LEAD SOFTWARE TEST ENGINEER.WATER QUALITY TESTER Work Phone: [facility] 04-18-2024 12:13-0400 Systolic blood pressure 118 mm[Hg] Juana Linton LEAD SOFTWARE TEST ENGINEER.WATER QUALITY TESTER Work Phone: [facility] 03-23-2024 10:40-0400 Body mass index (BMI) [Ratio] 39.47 kg/m2 Milenaphill Jaramilloisler-Wood LEAD SOFTWARE TEST ENGINEER.WATER QUALITY TESTER Work Phone: [facility] 03-23-2024 10:40-0400 Body temperature 97.59 [degF] Milena Praisler-Wood LEAD SOFTWARE TEST ENGINEER.WATER QUALITY TESTER Work Phone: [facility] 03-23-2024 10:40-0400 Body weight 114.3 kg Milena Praniniler-Wood LEAD SOFTWARE TEST ENGINEER.WATER QUALITY TESTER Work Phone: [facility] 03-23-2024 10:40-0400 Diastolic blood pressure 64 mm[Hg] Milena Praisler-Wood LEAD SOFTWARE TEST ENGINEER.WATER QUALITY TESTER Work Phone: [facility] 03-23-2024 10:40-0400 Heart rate 109 /min Milena Praisler-Wood LEAD SOFTWARE TEST ENGINEER.WATER QUALITY TESTER Work Phone: [facility] 03-23-2024 10:40-0400 Respiratory rate 16 /min Milena Praisler-Wood LEAD SOFTWARE TEST ENGINEER.WATER QUALITY TESTER Work Phone: [facility] 03-23-2024 10:40-0400 SaO2% (BldA) [Mass fraction] 98 % Milena Praisler-Wood LEAD SOFTWARE TEST ENGINEER.WATER QUALITY TESTER Work Phone: [facility] 03-23-2024 10:40-0400 Systolic blood pressure 138 mm[Hg] Milena Praisler-Wood LEAD SOFTWARE TEST ENGINEER.WATER QUALITY TESTER Work Phone: [facility] 03-01-2023 14:29-0400 Body weight 108.41 kg Mackenzie Fink MD Work Phone: [facility] 03-01-2023 14:29-0400 Diastolic blood pressure 72 mm[Hg] Mackenzie Fink MD Work Phone: [facility] 03-01-2023 14:29-0400 Heart rate 58 /min Mackenzie Fink MD Work Phone: [facility] 03-01-2023 14:29-0400 SaO2% (BldA) [Mass fraction] 95 % Mackenzie Fink MD Work Phone: [facility] 03-01-2023 14:29-0400 Systolic blood pressure 112 mm[Hg] Mackenzie Fink MD Work Phone: [facility] 01-26-2023 14:37-0400 Body height 170.2 cm Mackenzie Fink MD Work Phone: [facility] 01-26-2023 14:37-0400 Body weight 111.13 kg Mackenzie Fink MD Work Phone: [facility] 01-26-2023 14:37-0400 Diastolic blood pressure 80 mm[Hg] Mackenzie Fink MD Work Phone: [facility] 01-26-2023 14:37-0400 Heart rate 84 /min Mackenzie Fink MD Work Phone: [facility] 01-26-2023 14:37-0400 SaO2% (BldA) [Mass fraction] 95 % Mackenzie Fink MD Work Phone: [facility] 01-26-2023 14:37-0400 Systolic blood pressure 130 mm[Hg] Mackenzie Fink MD Work Phone: [facility] 12-08-2022 15:16-0500 Body height 170.18 cm No Primary Care Physician [facility] 12-08-2022 15:16-0500 Body mass index (BMI) [Ratio] 38.3 kg/m2 No Primary Care Physician [facility] 12-08-2022 15:16-0500 Body weight 111.13 kg No Primary Care Physician [facility] 12-08-2022 15:16-0500 Diastolic blood pressure 64 mm[Hg] No Primary Care Physician [facility] 12-08-2022 15:16-0500 Heart rate 65 /min No Primary Care Physician [facility] 12-08-2022 15:16-0500 Respiratory rate 18 /min No Primary Care Physician [facility] 12-08-2022 15:16-0500 Systolic blood pressure 104 mm[Hg] No Primary Care Physician [facility] 07-27-2022 13:06-0400 Body height 169 cm Mackenzie Fink MD Work Phone: [facility] 07-27-2022 13:06-0400 Body weight 101.61 kg Mackenzie Fink MD Work Phone: [facility] 07-27-2022 13:06-0400 Diastolic blood pressure 62 mm[Hg] Mackenzie Fink MD Work Phone: [facility] 07-27-2022 13:06-0400 Heart rate 68 /min Mackenzie Fink MD Work Phone: [facility] 07-27-2022 13:06-0400 Systolic blood pressure 112 mm[Hg] Mackenzie Fink MD Work Phone: [facility] 06-08-2022 14:02-0400 Body weight 99.34 kg Kyleigh Saucedo MD Work Phone: [facility] 06-08-2022 14:02-0400 Diastolic blood pressure 68 mm[Hg] Kyleigh Saucedo MD Work Phone: [facility] 06-08-2022 14:02-0400 Systolic blood pressure 118 mm[Hg] Kyleigh Saucedo MD Work Phone: [facility] 05-29-2022 15:33-0400 Body temperature 98 [degF] No Primary Care Physician [facility] Work Phone: 05-29-2022 15:33-0400 Diastolic blood pressure 60 mm[Hg] No Primary Care Physician [facility] Work Phone: 05-29-2022 15:33-0400 Heart rate 64 /min No Primary Care Physician [facility] Work Phone: 05-29-2022 15:33-0400 Respiratory rate 17 /min No Primary Care Physician [facility] Work Phone: 05-29-2022 15:33-0400 SaO2% (BldA) [Mass fraction] 95 % No Primary Care Physician [facility] Work Phone: 05-29-2022 15:33-0400 Systolic blood pressure 119 mm[Hg] No Primary Care Physician [facility] Work Phone: 05-28-2022 18:26-0400 Inhaled oxygen flow rate 2 L/min No Primary Care Physician [facility] Work Phone: 05-28-2022 14:46-0400 Body height 170.18 cm No Primary Care Physician [facility] Work Phone: 05-28-2022 14:46-0400 Body mass index (BMI) [Ratio] 36.6 kg/m2 No Primary Care Physician [facility] Work Phone: 05-28-2022 14:46-0400 Body weight 106.2 kg No Primary Care Physician [facility] Work Phone: 05-19-2022 13:54-0400 Body height 170.2 cm Kyleigh Saucedo MD Work Phone: [facility] 05-19-2022 13:54-0400 Body weight 107.5 kg Kyleigh Saucedo MD Work Phone: [facility] 05-19-2022 13:54-0400 Diastolic blood pressure 70 mm[Hg] Kyleigh Saucedo MD Work Phone: [facility] 05-19-2022 13:54-0400 Heart rate 74 /min Kyleigh Saucedo MD Work Phone: [facility] 05-19-2022 13:54-0400 Respiratory rate 16 /min Kyleigh Saucedo MD Work Phone: [facility] 05-19-2022 13:54-0400 Systolic blood pressure 126 mm[Hg] Kyleigh Saucedo MD Work Phone: [facility] 04-23-2022 10:39-0400 Body temperature 97 [degF] Juana Linton LEAD SOFTWARE TEST ENGINEER.WATER QUALITY TESTER Work Phone: [facility] 04-23-2022 10:39-0400 Body weight 107.86 kg Juana Linton LEAD SOFTWARE TEST ENGINEER.WATER QUALITY TESTER Work Phone: [facility] 04-23-2022 10:39-0400 Diastolic blood pressure 84 mm[Hg] Juana Linton LEAD SOFTWARE TEST ENGINEER.WATER QUALITY TESTER Work Phone: [facility] 04-23-2022 10:39-0400 Heart rate 75 /min Juana Linton LEAD SOFTWARE TEST ENGINEER.WATER QUALITY TESTER Work Phone: [facility] 04-23-2022 10:39-0400 Respiratory rate 18 /min Juana Linton LEAD SOFTWARE TEST ENGINEER.WATER QUALITY TESTER Work Phone: [facility] 04-23-2022 10:39-0400 SaO2% (BldA) [Mass fraction] 96 % Juana Linton LEAD SOFTWARE TEST ENGINEER.WATER QUALITY TESTER Work Phone: [facility] 04-23-2022 10:39-0400 Systolic blood pressure 126 mm[Hg] Juana Linton WATER QUALITY TESTER Work Phone: [facility] 03-19-2022 11:38-0400 Body weight 110.68 kg Kyleigh Saucedo MD Work Phone: [facility] 03-19-2022 11:38-0400 Diastolic blood pressure 70 mm[Hg] Kyleigh Saucedo MD Work Phone: [facility] 03-19-2022 11:38-0400 Systolic blood pressure 140 mm[Hg] Kyleigh Saucedo MD Work Phone: [facility] Encounters Encounter Date Encounter Type Care Provider Facility Start: 09-28-2025 ambulatory Mackenzie Fink Facility:[facility] Start: 09-13-2025 End: 09-13-2025 ambulatory Delmis Corral NP Facility:[facility] Start: 08-16-2025 End: 08-16-[address] Mackenzie Fink MD Work Phone: [facility] Start: 08-16-2025 End: 08-16-2025 Dr. Imani Persaud MD -[facility] Start: 08-09-2025 End: 08-09-[address] Mackenzie Fink MD Work Phone: -[facility] Start: 08-09-2025 End: 08-09-2025 Dr. Chema Paulino MD -[facility] Start: 08-09-2025 End: 08-09-2025 Delmis Corral CORE MANAGER- -[facility] Work Phone: Start: 08-09-2025 End: 08-09-[address] Mackenzie Fink MD Work Phone: [facility] Start: 08-09-2025 End: 08-09-2025 ambulatory Imani Persaud Facility:[facility] Start: 07-19-2025 End: 07-19-[address] Mackenzie Fink MD Work Phone: [facility] Start: 07-19-2025 End: 07-19-2025 Dr. Imani Persaud MD -[facility] Work Phone: Start: 07-18-2025 Dr. Kelli Sung MD - [facility] Work Phone: Start: 07-17-2025 Dr. Kelli Sung MD - [facility] Work Phone: Start: 07-17-2025 ambulatory Mackenzie Fink Facility:[facility] Start: 07-17-2025 Dr. Naldo Valencia MD - [facility] Start: 07-16-2025 ambulatory Kelli Sung Facility :[facility] Start: 07-16-2025 End: 07-18-2025 Evaluation and management of inpatient Dr. Mackenzie Fink MD Work Phone: -Pro[facility] Care Unit Start: 07-16-2025 End: 07-18-2025 Dr. Barbie Cross MD -[facility] Work Phone: Start: 07-12-[address] Nomi Persaud MD -[facility] Start: 07-12-2025 End: 07-12-2025 Patient encounter procedure Delmis Shayna CORE MANAGER-C -[facility] Work Phone: Start: 07-12-2025 End: 07-12-2025 Delmis Shayna CORE MANAGER-C -[facility] Work Phone: Start: 07-12-2025 End: 07-12-[address] Mackenzie Fink MD Work Phone: -[facility] Start: 06-28-[address] Nomi Persaud MD -[facility] Start: 06-28-2025 End: 06-28-[address] [facility] Work Phone: Start: 06-28-2025 End: 06-28-2025 Dr. [facility]man[facility] Work Phone: Start: 06-28-2025 End: 06-28-[address] Mackenzie Fink MD Work Phone: -[facility] Start: 06-14-[address] Nomi Persaud MD -[facility] Start: 06-14-2025 End: 06-14-[address] Richi Moore MD -[facility] Work Phone: Start: 06-14-2025 End: 06-14-2025 Dr. Richi Moore MD -[facility] Work Phone: Start: 06-14-2025 End: 06-14-[address] Mackenzie Fink MD Work Phone: -[facility] Start: 06-08-2025 End: 06-08-[address] Mackenzie Fink MD Work Phone: -Ul[facility]ound [facility] Start: 06-08-2025 End: 06-08-2025 Patient encounter procedure Delmis Shayna CORE MANAGER-C -[facility] Work Phone: Start: 06-08-2025 End: 06-08-2025 Delmis Shayna CORE MANAGER-C -[facility]ound [facility] Work Phone: Start: 06-07-2025 End: 06-07-2025 Patient encounter procedure Delmis Shayna CORE MANAGER-C -[facility] Work Phone: Start: 06-07-2025 End: 06-07-2025 Delmis Shayna CORE MANAGER-C -[facility] Work Phone: Start: 06-07-2025 End: 06-08-[address] Mackenzie Fink MD Work Phone: -[facility] Start: 06-07-[address] Nomi Persaud MD -[facility] Start: 05-31-[address] Nomi Persaud MD -[facility] Start: 05-31-2025 End: 05-31-2025 Patient encounter procedure Delmis Shayna CORE MANAGER-C -[facility] Work Phone: Start: 05-31-2025 End: 05-31-2025 Delmis Shayna CORE MANAGER-C -[facility] Work Phone: Start: 05-31-2025 End: 05-31-[address] Mackenzie Fink MD Work Phone: -[facility] Start: 05-17-[address] Nomi Persaud MD -[facility] Start: 05-17-2025 End: 05-17-2025 Patient encounter procedure Dr. Imani Persaud MD -[facility] Work Phone: Start: 05-17-2025 End: 05-17-2025 Dr. Imani Persaud MD -[facility] Work Phone: Start: 05-17-2025 End: 05-17-[address] Mackenzie Fink MD Work Phone: -[facility] Start: 05-10-[address] Nomi Persaud MD -[facility] Start: 05-10-2025 End: 05-10-2025 Patient encounter procedure Delmis Shayna CORE MANAGER-C -[facility] Work Phone: Start: 05-10-2025 End: 05-10-2025 Delmis Shayna CORE MANAGER-C -[facility] Work Phone: Start: 05-10-2025 End: 05-10-[address] Mackenzie Fink MD Work Phone: [facility] Work Phone: Start: 05-04-2025 End: 05-04-2025 Dr. Girish Mcgarry DO -Emergency Departil nt Work Phone: Start: 05-04-2025 End: 05-04-2025 Emergency department patient visit Dr. Mackenzie Fink MD Work Phone: -Emergency Department Work Phone: Start: 05-03-2025 End: 05-03-2025 Patient encounter procedure Delmis Shayna CORE MANAGER-C -[facility] Work Phone: Start: 05-03-2025 End: 05-03-2025 Delmis ALVES -[facility] Work Phone: Start: 05-03-2025 End: 05-03-[address] Mackenzie Fink MD Work Phone: [facility] Work Phone: Start: 05-03-[address] [facility] Start: 04-28-2025 End: 04-28-2025 Dr. Girish Mcgarry DO -Emergency [facility] Work Phone: Start: 04-28-2025 End: 04-28-2025 Emergency department patient visit Dr. Mackenzie Fink MD Work Phone: -Emergency Department Work Phone: Start: 04-26-2025 End: 04-26-[address] Imani [facility] Work Phone: Start: 04-26-2025 End: 04-26-2025 Dr. Imani [facility] Work Phone: Start: 04-26-2025 End: 04-26-[address] Mackenzie Fink MD Work Phone: [facility] Work Phone: Start: 04-26-[address] Nomi [facility] Start: 04-19-[address] Nomi [facility] Start: 04-19-2025 End: 04-19-[address] Imani [facility] Work Phone: Start: 04-19-2025 End: 04-19-2025 Dr. Imani [facility] Work Phone: Start: 04-19-2025 End: 04-19-[address] Mackenzie Fink MD Work Phone: [facility] Work Phone: Start: 04-18-2025 End: 04-18-[address] Mackenzie Fink MD Work Phone: [facility] Work Phone: Start: 04-18-2025 End: 04-18-2025 Patient encounter procedure Keron King Cody CORE MANAGER-C -[facility] Work Phone: Start: 04-18-2025 End: 04-18-2025 Keron King Cody CORE MANAGER-C -[facility] Work Phone: Start: 04-04-2025 End: 04-04-2025 Patient encounter procedure Delims Shayna CORE MANAGER-C -[facility] Work Phone: Start: 04-04-2025 End: 04-04-2025 Delmis Shayna CORE MANAGER-C -[facility] Work Phone: Start: 04-04-2025 End: 04-04-[address] Mackenzie Fink MD Work Phone: [facility] Work Phone: Start: 04-02-2025 ambulatory Theo Collazo lity:[facility] Start: 04-02-2025 Non-patient / Non-visit Dr. Aria Richard MD -[facility] Start: 04-02-2025 Dr. Theo Richard MD -[facility] Start: 04-02-2025 End: 04-02-2025 Admission to same day surgery center Dr. Theo Richard MD [facility] Start: 04-02-2025 End: 04-02-2025 Dr. Theo Richard MD [facility] Start: 04-02-2025 End: 04-02-[address] Mackenzie Fink MD Work Phone: [facility] Work Phone: Start: 03-28-2025 End: 03-28-[address] Imani Persaud MD -[facility] Work Phone: Start: 03-28-2025 End: 03-28-2025 Dr. Imani Persaud MD -[facility] Work Phone: Start: 03-28-2025 End: 03-28-[address] Mackenzie Fink MD Work Phone: [facility] Work Phone: Start: 03-26-2025 End: 03-26-[address] Mackenzie Fink MD Work Phone: [facility] Work Phone: Start: 03-26-2025 End: 03-26-[address] Imani Persaud MD -Cat Scan [facility] Work Phone: Start: 03-26-2025 End: 03-26-2025 Dr. Imani Persaud MD -Cat Scan [facility] Work Phone: Start: 03-26-2025 End: 03-26-[address] Theo Richard MD -[facility] Work Phone: Start: 03-26-2025 End: 03-26-2025 Dr. 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 Start: 02-26-2025 End: 02-26-[address] Imani Persaud MD -[facility] Work Phone: Start: 02-26-2025 End: 02-26-2025 ambulatory Imani Alvaradous Facility:[facility] Start: 02-16-2025 End: 02-16-2025 Telephone encounter Darvin Grady MD Work Phone: [facility] [place] Start: 02-15-2025 End: 02-15-2025 Telephone encounter Darvin Grady MD Work Phone: [facility] [place] Start: 02-14-2025 End: 02-14-2025 Office outpatient visit 15 minutes Gladis Herbert LEAD SOFTWARE TEST ENGINEER - WATER QUALITY TESTER Work Phone: [facility] [place] Comment on above: Pelvic mass in femal e (Primary Dx); Postoperative follow-up; Yeast infection of the skin Start: 02-14-2025 End: 02-14-2025 Telephone encounter Darvin Grady MD Work Phone: [facility] [place] Start: 02-14-2025 End: 02-14-2025 ambulatory GLADIS HERBERT [facility] Start: 01-26-2025 End: 01-27-2025 Subsequent hospital visit by physician Darvin Grayd MD Work Phone: [facility] Comment on above: Pelvic mass (Primary Dx); Intra-abdominal and pelvic swelling, mass and lump, unspecified site Start: 01-26-2025 End: 01-27-2025 Unknown DARVIN GRADY [facility] Start: 01-23-2025 End: 01-23-2025 ambulatory DARVIN GRADY [facility] Start: 01-19-2025 End: 01-19-2025 Telephone encounter Darvin Grady MD Work Phone: [facility] Comment on above: Other (Surgery sched [facility]) Start: 01-17-2025 End: 01-17-2025 Manual pelvic examination Darvin Grady MD Work Phone: [facility] [place] Comment on above: Pelvic mass (Primary Dx) Start: 01-17-2025 End: 01-17-2025 Office outpatient new 30 minutes Darvin Grady MD Work Phone: [facility] Comment on above: Pelvic mass in femal e (Primary Dx) Start: 01-17-2025 End: 01-17-2025 ambulatory Darvin Grady MD Work Phone: [facility] [place] Start: 01-12-2025 End: 01-12-[address] Mackenzie Fink MD Work Phone: [facility] Work Phone: Start: 01-12-2025 End: 01-12-[address] Imani Persaud MD -Ultrasound, [facility] Work Phone: Start: 01-12-2025 End: 01-12-2025 ambulatory [facility] Facility:[facility] Start: 01-10-[address] Nomi Persaud MD -[facility] Start: 01-10-2025 End: 01-10-[address] Imani Persaud MD -[facility] Work Phone: Start: 01-10-2025 End: 01-10-2025 ambulatory [facility] Facility:[facility] Start: 01-08-2025 End: 01-08-2025 Emergency department patient visit Dr. Isaiah Villanueva DO -Emergency Department Work Phone: Start: 12-25-2024 End: 12-25-2024 Follow-up encounter Chace ALEX Work Phone: [facility] Start: 12-24-2024 End: 12-24-2024 ambulatory MACKENZIE FINK Facility:[facility] Start: 12-24-2024 End: 12-24-2024 Office outpatient visit 25 minutes Isaías Ribeiro APRN.CNP Work Phone: [facility] Comment on above: Burning with urinati on (Primary Dx) Start: 10-03-2024 End: 10-09-2024 Telephone encounter Susy Smith APRN.WATER QUALITY TESTER Work Phone: [facility] Comment on above: Results Start: 09-29-2024 End: 09-29-[address] [facility] Facility:[facility] Start: 09-29-2024 End: 09-29-2024 Subsequent hospital visit by physician Screen Mammo [facility] Comment on above: Encounter for screen ing mammogram for breast cancer [Z12.31] Start: 09-25-2024 End: 09-25-2024 ambulatory Mackenzie Fink MD Work Phone: [facility] Comment on above: Mammogram Start: 09-25-2024 End: 09-25-2024 Telephone encounter Mackenzie Fink MD Work Phone: Mammogram Comment on above: Orders Start: 08-02-2024 End: 08-02-2024 Subsequent hospital visit by physician Xr [facility] Work Phone: Radiology Comment on above: Acute cough [R05.1] Start: 08-02-2024 End: 08-02-2024 [facility] Facility:[facility] Start: 08-02-2024 End: 08-02-2024 Office outpatient visit 25 minutes Isaías Ribeiro APRN.WATER QUALITY TESTER Work Phone: [facility] Comment on above: Acute cough (Primary Dx); Bronchitis Start: 08-02-2024 End: 08-02-2024 Telephone encounter Isaías Ribeiro APRN.WATER QUALITY TESTER Work Phone: [facility] Comment on above: Results Start: 04-18-2024 End: 04-18-2024 ambulatory [facility] Facility:[facility] Start: 04-18-2024 End: 04-18-2024 Patient encounter procedure Juana Linton APRN.WATER QUALITY TESTER Work Phone: [facility] Comment on above: Acute cough (Primary Dx); Rhinosinusitis Start: 03-23-2024 End: 03-23-2024 [facility] Facility:[facility] Start: 03-23-2024 End: 03-23-2024 Patient encounter procedure Milena Vaughan APRN.WATER QUALITY TESTER Work Phone: [facility] Comment on above: Acute cough (Primary Dx); Viral URI; Viral bronchitis; Eye redness Start: 09-20-2023 Documentation procedure [facility] Start: 09-20-2023 Letter encounter Mammography Coordinator [facility] Department Start: 09-17-2023 End: 09-17-2023 Subsequent hospital visit by physician Screen Mammo [facility] Comment on above: Encounter for screen ing mammogram for malignant neoplasm of breast [Z12.31] Start: 08-18-2023 Telephone encounter Mackenzie Fink MD Work Phone: [facility] Comment on above: Patient Question Start: 03-01-2023 End: 03-01-2023 Patient encounter procedure Mackenzie Fink MD Work Phone: [facility] Comment on above: GERD without esophag itis (Primary Dx); Adjustment disorder with other symptom Start: 02-16-2023 End: 02-16-2023 ambulatory Hilda Morin APRN.WATER QUALITY TESTER Work Phone: [facility] Comment on above: COVID-19 (Primary Dx ) Start: 02-16-2023 End: 02-16-2023 Telemedicine consultation with patient Hilda Morin SREEDHAR.WATER QUALITY TESTER Work Phone: [facility] Start: 01-28-2023 Telephone encounter Mackenzie Fink MD Work Phone: [facility] Comment on above: Results Start: 01-26-2023 End: 01-26-2023 Subsequent hospital visit by physician Xr [facility] Work Phone: Radiology Comment on above: Trigger little finge r of right hand [M65.351] Start: 01-26-2023 End: 01-26-2023 Patient encounter procedure Mackenzie Fink MD Work Phone: [facility] Comment on above: 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, unspecified vessel or lesion type (HCC) (Primary Dx); Hyperlipidemia, mixed; Hyperglycemia; Obesity, Class I, BMI 30-34.9; Trigger little finger of right hand; Right elbow pain; Numbness; GERD without esophagitis; Cough, unspecified type; Adjustment disorder with anxious mood Start: 12-08-2022 Patient encounter procedure No Primary Care Physician [facility]-Laboratory Start: 12-08-2022 End: 12-08-2022 Patient encounter procedure No Primary Care Physician [facility] Start: 11-30-2022 End: 11-30-2022 ambulatory No Primary Care Physician [facility] Work Phone: Start: 11-30-2022 End: 11-30-2022 Patient encounter procedure No Primary Care Physician [facility]Labor[facility] Start: 10-13-2022 Orders Only Tsering orellana MD Work Phone: [facility] Provider Adult Start: 07-30-2022 Documentation procedure Mammog lala Coordinator [facility] Start: 07-30-2022 Letter encounter Mammography Coordinator [facility] Department Start: 07-30-2022 End: 07-30-2022 Subsequent hospital visit by physician Screen Mammo [facility] Comment on above: Obesity, Class I, BM I 30-34.9 [E66.9] Start: 07-28-2022 Telephone encounter [facility]: Results Start: 07-27-2022 End: 07-27-2022 Patient encounter procedure [facility] Comment on above: 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, unspecified vessel or lesion type (HCC) (Primary Dx); Blood in stool; Hyperglycemia; Tobacco use; Hyperlipidemia, mixed; Neck mass Start: 06-25-2022 Telephone encounter [facility]ink MD [facility] Comment on above: Patient Question Start: 06-15-2022 [...] encounter procedure Kyleigh Saucedo MD Work Phone: [facility] Start: 05-28-2022 End: 05-29-2022 Evaluation and management of inpatient No Primary Care Physician [facility]-Medical Surgical 3 Start: 05-25-2022 Non-patient / Non-visit No [facility] Physician [facility] Start: 05-25-2022 End: 05-25-2022 Patient encounter procedure No Primary Care Physician [facility]-Cardiovascul ar Services Start: 05-19-2022 End: 05-19-2022 Patient encounter procedure Kyleigh Saucedo MD Work Phone: OB/Gynecology Comment on above: Menorrhagia with irr egular cycle (Primary Dx); Uterine leiomyoma, unspecified location; Iron deficiency anemia due to chronic blood loss Start: 05-04-2022 Refill Kyleigh saeed MD Work Phone: OB/Gynecology Comment on above: Refill Request Start: 04-23-2022 End: 04-23-2022 Subsequent hospital visit by physician [facility] Work Phone: Radiology Comment on above: Cough [R05.9] Start: 04-23-2022 End: 04-23-2022 Patient encounter procedure Juana Linton APRN.WATER QUALITY TESTER Work Phone: [facility] Comment on above: Cough (Primary Dx); [...] encounter chace rodriguez caregiver [facility] Start: 09-22-2021 Telephone encounter Kyleigh Saucedo MD Work Phone: OB/Gynecology Comment on above: Appointment Procedures Date Procedure Procedure Detail Performing Clinician Start: 08-16-[address] Mackenzie Fink MD Work Phone: Start: 08-16-2025 Mean corpuscular hemoglobin concentration determination Dr. Mackenzie Fink MD Work Phone: Start: 08-16-[address] Eris Fink MD Work Phone: Start: 08-16-2025 Nucleated red blood cell count procedure Dr. Mackenzie Fink MD Work Phone: Start: 08-16-2025 Platelet mean volume determination Dr. Mackenzie Fink MD Work Phone: Start: 08-16-2025 Serum inorganic phos phate measurement Dr. Mackenzie Fink MD Work Phone: Start: 08-09-2025 CT of thorax, abdome n and pelvis with contrast Dr. Mackenzie Fink MD Work Phone: Start: 07-19-2025 Blood count smear rscp w/mnl difrntl wbc count Dr. Mackenzie Fink MD Work Phone: Start: 07-19-[address] Mackenzie Fink MD Work Phone: Start: 07-19-2025 Lymphocyte percent differential count Dr. Mackenzie Fink MD Work Phone: Start: 07-19-2025 Mean corpuscular hemoglobin concentration determination Dr. Mackenzie Fink MD Work Phone: Start: 07-19-2025 Nucleated red blood cell count procedure Dr. Mackenzie Fink MD Work Phone: Start: 07-19-2025 Platelet mean volume determination Dr. Mackenzie Fink MD Work Phone: Start: 07-18-2025 Blood count smear mc rscp w/mnl difrntl wbc count Dr. Mackenzie Fink MD Work Phone: Start: 07-18-[address] Mackenzie Fink MD Work Phone: Start: 07-18-2025 Mean corpuscular hemoglobin concentration determination Dr. Mackenzie Fink MD Work Phone: Start: 07-18-[address] Eris Fink MD Work Phone: Start: 07-18-2025 Nucleated red blood cell count procedure Dr. Mackenzie Fink MD Work Phone: Start: 07-18-2025 Platelet mean volume determination Dr. Mackenzie Fnik MD Work Phone: Start: 07-16-2025 Chloride measurement , urine Dr. Mackenzie Fink MD Work Phone: Start: 07-16-2025 Urea nitrogen measurement, urine Dr. Mackenzie Fink MD Work Phone: Start: 07-16-2025 Osmolality measureme nt, serum Dr. Mackenzie Fink MD Work Phone: Start: 07-16-[address] Bucky Fink MD Work Phone: Start: 07-16-[address] Mackenzie Fink MD Work Phone: Start: 07-16-[address] Bucky Fink MD Work Phone: Start: 07-16-2025 Dr. Anne Fink MD Work Phone: Start: 07-16-2025 Urine microscopy: re d cells Dr. Mackenzie Fink MD Work Phone: Start: 07-16-2025 Urnls dip stick/tabl et reagent auto microscopy Dr. Mackenzie Fink MD Work Phone: Start: 07-16-2025 Blood count smear mc rscp w/mnl difrntl wbc count Dr. Mackenzie Fink MD Work Phone: Start: 07-16-2025 Calculation of international normalized ratio Dr. Mackenzie Fink MD Work Phone: Start: 07-16-[address] Mackenzie Fink MD Work Phone: Start: 07-16-2025 Flow cytometry cell surf marker techl only 1st Dr. Mackenzie Fink MD Work Phone: Start: 07-16-[address] Mackenzie Fink MD Work Phone: Start: 07-16-2025 Mean corpuscular hemoglobin concentration determination Dr. Mackenzie Fink MD Work Phone: Start: 07-16-2025 Platelet mean volume determination Dr. Mackenzie Fink MD Work Phone: Start: 07-16-2025 X-ray of chest, PA a nd lateral views Dr. Mackenzie Fink MD Work Phone: Start: 07-12-2025 Blood count smear mc rscp w/mnl difrntl wbc count Dr. Mackenzie Fink MD Work Phone: Start: 07-12-[address] Mackenzie Fink MD Work Phone: Start: 07-12-2025 Mean corpuscular hemoglobin concentration determination Dr. Mackenzie Fink MD Work Phone: Start: 07-12-2025 Nucleated red blood cell count procedure Dr. Mackenzie Fink MD Work Phone: Start: 07-12-2025 Platelet mean volume determination Dr. Mackenzie Fink MD Work Phone: Start: 07-12-2025 Serum inorganic phos phate measurement Dr. Mackenzie Fink MD Work Phone: Start: 06-28-[address] Mackenzie Fink MD Work Phone: Start: 06-14-[address] Mackenzie Fink MD Work Phone: Start: 06-08-[address] Mackenzie Fink MD Work Phone: Start: 06-07-[address] Mackenzie Fink MD Work Phone: Start: 06-07-2025 Total iron binding capacity measurement Dr. Mackenzie Fink MD Work Phone: Start: 05-31-[address] Mackenzie Fink MD Work Phone: Start: 05-31-2025 Serum inorganic phos phate measurement Dr. Mackenzie Fink MD Work Phone: Start: 05-17-[address] Mackenzie Fink MD Work Phone: Start: 05-17-2025 Lymphocyte percent differential count Dr. Mackenzie Fink MD Work Phone: Start: 05-10-[address] Mackenzie Fink MD Work Phone: Start: 05-10-2025 Flow cytometry cell surf marker techl only 1st Dr. Mackenzie Fink MD Work Phone: Start: 05-10-2025 Nucleated red blood cell count procedure Dr. Mackenzie Fink MD Work Phone: Start: 05-10-2025 Serum inorganic phos phate measurement Dr. Mackenzie Fink MD Work Phone: Start: 05-04-2025 Calculation of international normalized ratio Dr. Mackenzie Fink MD Work Phone: Start: 05-04-2025 X-ray of chest, PA a nd lateral views Dr. Mackenzie Fink MD Work Phone: Start: 05-04-2025 Blood count smear mc rscp w/mnl difrntl wbc count Dr. Mackenzie Fink MD Work Phone: Start: 05-04-[address] Mackenzie Fink MD Work Phone: Start: 05-04-[address] Mackenzie Fink MD Work Phone: Start: 05-04-2025 Mean corpuscular hemoglobin concentration determination Dr. Mackenzie Fink MD Work Phone: Start: 05-04-[address] Eris Fink MD Work Phone: Start: 05-04-2025 Nucleated red blood cell count procedure Dr. Mackenzie Fink MD Work Phone: Start: 05-04-2025 Platelet mean volume determination Dr. Mackenzie Fink MD Work Phone: Start: 05-04-[address] Eris Fink MD Work Phone: Start: 05-04-2025 Urine microscopy: re d cells Dr. Mackenzie Fink MD Work Phone: Start: 05-04-2025 Urnls dip stick/tabl et reagent auto microscopy Dr. Mackenzie Fink MD Work Phone: Start: 05-04-[address] Bucky Fink MD Work Phone: Start: 05-04-[address] Bucky Fink MD Work Phone: Start: 05-03-2025 Urine microscopy: re d cells Dr. Mackenzie Fink MD Work Phone: Start: 05-03-2025 Urnls dip stick/tabl et reagent auto microscopy Dr. Mackenzie Fink MD Work Phone: Start: 05-03-[address] Mackenzie Fink MD Work Phone: Start: 05-03-[address] reticulocyt e fraction Dr. Mackenzie Fink MD Work Phone: Start: 05-03-[address] Mackenzie Fink MD Work Phone: Start: 05-03-[address] e measurement Dr. Mackenzie Fink MD Work Phone: Start: 05-03-2025 Lymphocyte percent differential count Dr. Mackenzie Fink MD Work Phone: Start: 05-03-[address] Mackenzie Fink MD Work Phone: Comment on above: Performed at: [place] [id number] Director: Richi Vargas PhD, Phone: [phone] Start: 05-03-2025 Serum inorganic phos phate measurement Dr. Mackenzie Fink MD Work Phone: Start: 04-28-2025 Urine microscopy: re d cells Dr. Mackenzie Fink MD Work Phone: Start: 04-28-2025 Urnls dip stick/tabl et reagent auto microscopy Dr. Mackenzie Fink MD Work Phone: Start: 04-28-2025 X-ray of chest, PA a nd lateral views Dr. Mackenzie Fink MD Work Phone: Start: 04-28-2025 Blood count smear mc rscp w/mnl difrntl wbc count Dr. Mackenzie Fink MD Work Phone: Start: 04-28-2025 Calculation of international normalized ratio Dr. Mackenzie Fink MD Work Phone: Start: 04-28-[address] Mackenzie Fink MD Work Phone: Start: 04-28-[address] Mackenzie Fink MD Work Phone: Start: 04-28-2025 Mean corpuscular hemoglobin concentration determination Dr. Mackenzie Fink MD Work Phone: Start: 04-28-[address] Eris Fink MD Work Phone: Start: 04-28-2025 Nucleated red blood cell count procedure Dr. Mackenzie Fink MD Work Phone: Start: 04-28-2025 Platelet mean volume determination Dr. Mackenzie Fink MD Work Phone: Start: 04-28-2025 Serum inorganic phos phate measurement Dr. Mackenzie Fink MD Work Phone: Start: 04-28-[address] Bucky Fink MD Work Phone: Start: 04-28-[address] Bucky Fink MD Work Phone: Start: 04-26-[address] Mackenzie Fink MD Work Phone: Start: 04-26-2025 Serum inorganic phos phate measurement Dr. Mackenzie Fink MD Work Phone: Start: 04-19-[address] Mackenzie Fink MD Work Phone: Start: 04-02-2025 Plain chest X-ray Dr. Aris Fink MD Work Phone: Start: 04-02-2025 Implantation to cardiovascular system Dr. Mackenzie Fink MD Work Phone: Start: 04-02-2025 Fluoroscopic guidance Danny Fink MD Work Phone: Start: 03-26-2025 CT of thorax, abdome n and pelvis with contrast Dr. Mackenzie Fink MD Work Phone: Start: 01-27-2025 Blood [...] lds trcg only w/o i&r Shasha Leahy LEAD SOFTWARE TEST ENGINEER - WATER QUALITY TESTER Work Phone: Start: 01-26-2025 Antibody screen DARVIN GRADY Comment on above: Order Comment: HOLD. Specimen is valid for 3 days - nurse to verify valid specimen Performed By: #### L [id number] #### Shake Maker: [employer] ([phone]) [facility] ([facility]) [address] [place] [address] Start: 01-26-2025 ABO and Rh group [Ty pe] in Blood by Confirmatory method Darvin Grady MD Work Phone: Start: 01-26-2025 Basic metabolic pane l calcium total Shasha Leahy LEAD SOFTWARE TEST ENGINEER - WATER QUALITY TESTER Work Phone: Start: 01-26-2025 Blood typing serolog ic abo Darvin Grady MD Work Phone: Start: 01-19-[address] Mackenzie Fink MD Work Phone: Start: 01-12-[address] Mackenzie Fink MD Work Phone: Start: 01-10-[address] e fraction Dr. Mackenzie Fink MD Work Phone: Start: 01-08-2025 Computed tomography of abdomen and pelvis with intravenous contrast Dr. Mackenzie Fink MD Work Phone: Start: 01-08-2025 Urnls dip stick/tabl et reagent auto microscopy Dr. Mackenzie Fink MD Work Phone: Start: 01-08-[address] Mackenzie Fink MD Work Phone: Start: 01-08-2025 Measurement of renal function Dr. Mackenzie Fink MD Work Phone: Comment on above: GFR Calc Start: 01-08-[address] Bucky Fink MD Work Phone: Start: 12-24-2024 Urnls dip stick/tabl et rgnt auto w/o microscopy Karena Arzola LEAD SOFTWARE TEST ENGINEER.WATER QUALITY TESTER Work Phone: Start: 09-29-2024 Mammography Darvin moncada MD Work Phone: Start: 08-02-2024 Radiologic exam ches t 2 views Isaías Riebiro LEAD SOFTWARE TEST ENGINEER.WATER QUALITY TESTER Work Phone: Start: 09-17-2023 Screening mammograph y bi 2-view breast inc cad Mackenzie Fink MD Work Phone: Start: 09-08-2023 Lipid 1996 panel - S noemi or Plasma Screen Wstr Start: 01-26-2023 Radex elbow 2 views Quinten Fink MD Work Phone: Start: 07-30-2022 End: 07-30-2022 Screening mammography bi 2-view breast inc cad Sunday [facility] Work Phone: Start: 07-24-2022 Lipid 1996 panel - S noemi or Plasma Mackenzie Fink MD Work Phone: Start: 07-20-2022 Adult depression screening assessment Mackenzie Fink MD Work Phone: Start: 05-28-2022 Total abdominal hysterectomy No Primary Care Physician Start: 04-23-2022 Radiologic exam ches t 2 views Juana Linton LEAD SOFTWARE TEST ENGINEER.WATER QUALITY TESTER Work Phone: Start: 03-31-2021 History of placement of stent for coronary artery disease History of coronary artery stent placement Keron Ross CORE MANAGER-C Comment on above: [id number]-OPF-Yehw LAD w/ 4.5 x 20 mm Veriflex 06/2014; [id number] RCA w/ 4.0 X 22 Orsiro 03/31/21 History of cholecystectomy History of cholecystectomy No Primary Care Physician Plan of Treatment Date Care Activity Detail Author Start: 2045 RSV Immunization for Adults (1 - 1-dose 75+ series) RSV Immunization for Adults (1 - 1-dose 75+ series) [facility] Start: 09-08-2028 Lipid 1996 panel - Serum or Plasma Lipid Screening [facility] Start: 09-08-2028 Lipid panel Lipid Screening [facility] Start: 07-24-2027 Lipid 1996 panel - Serum or Plasma Lipid Screening [facility] Start: 07-24-2027 LIPID SCREEN LIPID SCREEN [facility] Start: 09-23-2026 HPV TESTING HPV TESTING [facility] Start: 09-23-2026 PAP TESTING PAP TESTING [facility] Start: 09-23-2026 Screening for malignant neoplasm of cervix [facility] Start: 09-08-2026 Diabetes Screening Diabetes Screening [facility] Start: 03-20-2026 End: 03-20-2026 Patient encounter procedure 03/20/2026 2:00 PM EDT Office Visit Division of Medical Oncology [address] [place] [address] Christopher Cunningham MD [address] [place] [id number] Division of Medical Oncology Start: 01-26-2026 DIABETES SCREEN DIABETES SCREEN [facility] Start: 01-26-2026 Diabetes Screening Diabetes Screening [facility] Start: 09-29-2025 Screening for malignant neoplasm of breast [facility] Start: 08-16-2025 Serum inorganic phosphate measurement [facility] Start: 08-16-2025 [facility] Start: 08-09-2025 Venous catheter care management [facility] Start: 07-27-2025 DIABETES SCREEN DIABETES SCREEN [facility] Start: 07-24-2025 DIABETES SCREEN DIABETES SCREEN [facility] Start: 07-19-2025 [facility] Start: 07-18-2025 Patient discharge [facility] Start: 07-16-2025 [facility] Start: 07-16-2025 Following clinical pathway protocol [facility] Start: 07-16-2025 Assessment of risk of venous thromboembolism [facility] Start: 07-16-2025 Inhalation therapy procedure [facility] Start: 07-16-2025 Insertion of catheter into peripheral vein [facility] Start: 07-16-2025 Measuring intake and output [facility] Start: 07-16-2025 Providing care according to standard [facility] Start: 07-16-2025 Provision of activity privileges [facility] Start: 07-16-2025 Referral for physical therapy [facility] Start: 07-16-2025 Referral to occupational therapist [facility] Start: 07-16-2025 Referral to service [facility] Start: 07-16-2025 [facility] Start: 07-16-2025 Blood culture [facility] Start: 07-16-2025 Influenza vaccination Influenza Vaccine (Season Ended) [facility] Start: 07-16-2025 Verification routine [facility] Start: 07-16-2025 Admission procedure [facility] Start: 07-16-2025 Hospital admission, emergency, from emergency room, medical nature [facility] Start: 07-16-2025 End: 07-16-2025 [facility] Start: 07-16-2025 End: 07-16-2025 [facility] Start: 07-16-2025 Patient referral to dietitian [facility] Start: 07-12-2025 [facility] Start: 06-28-2025 [facility] Start: 06-14-2025 [facility] Start: 06-14-2025 [facility] Start: 06-07-2025 [facility] Start: 05-31-2025 [facility] Start: 05-17-2025 Serum inorganic phosphate measurement [facility] Start: 05-17-2025 [facility] Start: 05-10-2025 [facility] Start: 05-04-2025 [facility] Start: 05-04-2025 End: 05-04-2025 [facility] Start: 05-04-2025 [facility] Start: 05-04-2025 Bacteria identified in Blood by Culture Blood Culture [facility] Start: 05-04-2025 Bacteria identified in Urine by Culture Urine Culture [facility] Start: 05-04-2025 Blood culture Blood Culture [facility] Start: 05-03-2025 Patient referral [facility] Work Phone: Start: 05-03-2025 Direct antiglobulin test.unspecified reagent [Presence] on Red Blood Cells [facility] Start: 05-03-2025 Haptoglobin [Mass/volume] in Serum or Plasma [facility] Start: 05-03-2025 Hepatic function panel [facility] Start: 05-03-2025 Lactate dehydrogenase measurement [facility] Start: 05-03-2025 Reticulocyte count [facility] Start: 05-03-2025 [facility] Start: 04-28-2025 [facility] Start: 04-28-2025 [facility] Start: 04-28-2025 End: 04-28-2025 [facility] Start: 04-28-2025 Oxygen therapy [facility] Start: 04-28-2025 Chemotherapy care management [facility] Start: 04-28-2025 Bacteria identified in Blood by Culture Blood Culture [facility] Start: 04-28-2025 Bacteria identified in Urine by Culture Urine Culture [facility] Start: 04-28-2025 Blood culture Blood Culture [facility] Start: 04-26-2025 [facility] Start: 04-19-2025 Venous catheter care management [facility] Start: 04-19-2025 [facility] Start: 04-02-2025 Anesthesia access central venous circulation [facility] Start: 04-02-2025 Insj tunneled ctr vad w/subq port age 5 yr/> [facility] Start: 04-02-2025 Patient referral [facility] Work Phone: Start: 04-02-2025 Patient discharge [facility] Start: 03-28-2025 Patient referral [facility] Work Phone: Start: 02-26-2025 Patient referral [facility] Work Phone: Start: 02-09-2025 End: 02-09-2025 Patient encounter procedure 02/09/2025 11:00 AM EDT Office Visit [facility] [place] [address] [place] [address] Gladis Herbert, LEAD SOFTWARE TEST ENGINEER - WATER QUALITY TESTER [address] [place] [address] [facility] [place] Start: 01-26-2025 End: 01-26-2025 Admission to same day surgery center 01/26/2025 8:30 AM EDT - 01/26/2025 10:00 AM EDT Surgery [facility] [address] [place] [address] Darvin Grady MD [address] [place] [address] LAPAROTOMY, EXPLORATORY [58162 (CPT )] [facility] Comment on above: LAPAROTOMY, EXPLORATORY [21251 (CPT )] Start: 01-26-2025 End: 01-26-2025 Exploratory laparotomy celiotomy w/wo biopsy spx LAPAROTOMY, EXPLORATORY Intra-abdominal and pelvic swelling, mass and lump, unspecified site 01/26/2025 8:30 AM EDT [facility] Start: 01-26-2025 End: 01-26-2025 Laparoscopy surg w/bx single/multiple LAPAROSCOPY, WITH BIOPSY Intra-abdominal and pelvic swelling, mass and lump, unspecified site 01/26/2025 8:30 AM EDT [facility] Start: 01-26-2025 End: 01-26-2025 Laparoscopy w/rmvl adnexal structures LAPAROSCOPIC, SALPINGO-OOPHORECTOMY Intra-abdominal and pelvic swelling, mass and lump, unspecified site 01/26/2025 8:30 AM EDT [facility] Start: 01-26-2025 End: 01-26-2025 Lmtd lmphadec staging spx pel&para-aortic LYMPHADENECTOMY, PARA-AORTIC OR PELVIC, LIMITED, FOR STAGING Intra-abdominal and pelvic swelling, mass and lump, unspecified site 01/26/2025 8:30 AM EDT [facility] Start: 01-26-2025 Subsequent hospital visit by physician [facility] Start: 01-23-2025 End: 01-23-2025 [facility] 01/23/2025 9:30 AM EDT Pre-Admission Testing [facility] Pre-Admit Testing [address] [place] [id number] Darvin Grady MD [address] [place] [address] [facility]-Admit Testing Start: 01-08-2025 [facility] Start: 01-08-2025 Referral to oncologist [facility] Start: 09-29-2024 End: 09-29-2024 Patient encounter procedure 09/29/2024 1:30 PM EST Appointment Mammogram [address] [place] [address] Encounter for screening mammogram for breast cancer [Z12.31] Mammogram Comment on above: Encounter for screening mammogram for br east cancer [Z12.31] Start: 09-17-2024 Mammography Mammogram Screening [facility] Start: 09-17-2024 Screening for malignant neoplasm of breast Mammogram Screening [facility] Start: 09-08-2024 Diabetes mellitus screening Diabetes Screening [facility] Start: 09-08-2024 Hepatitis B surface antibody level LDL Cholesterol [facility] Start: 08-31-2024 Annual PCP Team Chronic Disease Visit Annual PCP Team Chronic Disease Visit [facility] Start: 08-31-2024 Hepatitis B Vaccine (1 of 3 - 19+ 3-dose series) Hepatitis B Vaccine (1 of 3 - 19+ 3-dose series) [facility] Comment on above: Postponed from 1989 (Declined at t his time) Start: 08-31-2024 Hepatitis B Vaccine (1 of 3 - 3-dose series) Hepatitis B Vaccine (1 of 3 - 3-dose series) [facility] Comment on above: Postponed from 1970 (Declined at t his time) Start: 08-31-2024 [facility]neum[facility] Comment on above: Postponed from 1976 (Declined at t his time) Start: 08-31-2024 Shingrix Vaccine (1 of 2) Shingrix Vaccine (1 of 2) [facility] Comment on above: Postponed from 2020 (Declined at t his time) Start: 08-31-2024 Urine microalbumin profile DTaP,Tdap,Td Vaccine (1 - Tdap) [facility] Comment on above: Postponed from 1989 (Declined at t his time) Start: 07-16-2024 Covid-19 Vaccine ( season) Covid-19 Vaccine () [facility] Start: 07-16-2024 Covid-19 Vaccine ( season) Covid-19 Vaccine () [facility] Start: 07-16-2024 Influenza vaccination [facility] Start: 05-14-2024 Influenza vaccination Influenza Vaccine (#1) [facility] Comment on above: Postponed from 07/16/2023 (Declined at t his time) Start: 03-01-2024 ANNUAL PCP TEAM CHRONIC DISEASE VISIT ANNUAL PCP TEAM CHRONIC DISEASE VISIT [facility] Start: 02-17-2024 ANNUAL PCP TEAM CHRONIC DISEASE VISIT ANNUAL PCP TEAM CHRONIC DISEASE VISIT [facility] Start: 01-27-2024 ANNUAL PCP TEAM CHRONIC DISEASE VISIT ANNUAL PCP TEAM CHRONIC DISEASE VISIT [facility] Start: 01-27-2024 COVID-19 VACCINE (#1) COVID-19 VACCINE (#1) [facility] Comment on above: Postponed from 01/22/1971 (Declined at t his time) Start: 11-15-2023 Behavioral Health Screening Behavioral Health Screening [facility] Start: 07-30-2023 Mammography [facility] Start: 07-27-2023 ANNUAL PCP TEAM CHRONIC DISEASE VISIT ANNUAL PCP TEAM CHRONIC DISEASE VISIT [facility] Start: 07-27-2023 HEPATITIS C SCREENING HEPATITIS C SCREENING [facility] Comment on above: Postponed from 1988 (Declined at t his time) Start: 07-24-2023 COLORECTAL CANCER SCREENING COLORECTAL CANCER SCREENING [facility] Start: 07-24-2023 FECAL OCCULT BLOOD FECAL OCCULT BLOOD [facility] Start: 07-24-2023 Hepatitis B surface antibody level LDL CHOLESTEROL [facility] Start: 07-24-2023 Screening for malignant neoplasm of colon [facility] Start: 07-20-2023 Adult depression screening assessment DEPRESSION SCREENING [facility] Start: 07-16-2023 Covid-19 Vaccine ( season) Covid-19 Vaccine () [facility] Start: 07-16-2023 Influenza vaccination [facility] Start: 05-14-2023 Influenza vaccination INFLUENZA (#1) [facility] Comment on above: Postponed from 07/16/2022 (Declined at t his time) Start: 01-25-2023 End: 03-27-2023 Hemoglobin A1c in Blood HGB A1C Lab Routine Hyperglycemia Expected: 01/25/2023, Expires: 03/27/2023 [facility] Work Phone: Comment on above: Expected: 01/25/2023, Expires: Start: 07-27-2022 End: 09-26-2022 Hemoglobin A1c in Blood [facility] Work Phone: Comment on above: Expected: 07/27/2022, Expires: Start: 07-16-2022 Influenza vaccination [facility] Start: 05-29-2022 Introduction of urinary catheter [facility] Work Phone: Start: 05-29-2022 Patient discharge [facility] Work Phone: Start: 05-28-2022 Ambulation therapy management [facility] Work Phone: Start: 05-28-2022 Continuous pulse oximetry [facility] Work Phone: Start: 05-28-2022 Elevation of head of bed [facility] Work Phone: Start: 05-28-2022 Incentive spirometry [facility] Work Phone: Start: 05-28-2022 Measuring intake and output [facility] Work Phone: Start: 05-28-2022 Notification of physician [facility] Work Phone: Start: 05-28-2022 Oxygen therapy [facility] Work Phone: Start: 05-28-2022 Patient education [facility] Work Phone: Start: 05-28-2022 Procedures relating to eating and drinking [facility] Work Phone: Start: 05-28-2022 Taking patient vital signs [facility] Work Phone: Start: 05-28-2022 Wound care [facility] Work Phone: Start: 05-28-2022 [facility] Work Phone: Start: 05-28-2022 Introduction of urinary catheter [facility] Work Phone: Start: 05-28-2022 Following clinical pathway protocol [facility] Work Phone: Start: 05-28-2022 Admission procedure [facility] Work Phone: Start: 05-21-2022 Electrocardiographic procedure [facility] Work Phone: Start: 03-19-2022 End: 05-19-2022 CBC panel - Blood by Automated count CBC Lab Routine Menorrhagia with irregular cycle Expected: 03/19/2022, Expires: 05/19/2022 [facility] Work Phone: Comment on above: Expected: 03/19/2022, Expires: 2 Start: 03-19-2022 End: 05-19-2022 IRON + TIBC IRON + TIBC Lab Routine Menorrhagia with irregular cycle Expected: 03/19/2022, Expires: 05/19/2022 [facility] Work Phone: Comment on above: Expected: 03/19/2022, Expires: 2 Start: 03-19-2022 End: 05-19-2022 Thyrotropin [Units/volume] in Serum or Plasma TSH BLD Lab Routine Menorrhagia with irregular cycle Expected: 03/19/2022, Expires: 05/19/2022 [facility] Work Phone: Comment on above: Expected: 03/19/2022, Expires: 2 Start: 11-15-2021 DEPRESSION ASSESSMENT DEPRESSION ASSESSMENT [facility] Start: 07-16-2021 Influenza vaccination INFLUENZA (#1) [facility] Start: 2020 Screening for malignant neoplasm of lung Lung Cancer Screening [facility] Start: 2020 SHINGRIX VACCINE (1 of 2) SHINGRIX VACCINE (1 of 2) [facility] Start: 2020 Zoster vaccine hzv live for subcutaneous use ZOSTER (SHINGLES) VACCINE (1 of 2) [facility] Start: 2020 Zoster Vaccines (1 of 2) Zoster Vaccines (1 of 2) [facility] Start: 2015 COLOGUARD (FIT-DNA) COLOGUARD (FIT-DNA) [facility] Start: 2015 Colonoscopy COLONOSCOPY [facility] Start: 2015 COLORECTAL CANCER SCREENING COLORECTAL CANCER SCREENING [facility] Start: [address] COLONOGRAPHY [facility] Start: 2015 DIABETES SCREEN DIABETES SCREEN [facility] Start: 2015 FECAL OCCULT BLOOD FECAL OCCULT BLOOD [facility] Start: 2015 LIPID SCREEN LIPID SCREEN [facility] Start: 2015 Screening for malignant neoplasm of colon [facility] Start: 2015 SIGMOIDOSCOPY SIGMOIDOSCOPY [facility] Start: 2010 Lipid panel LIPID SCREENING [facility] Start: 2010 Mammography MAMMOGRAM [facility] Start: 2000 HPV TESTING HPV TESTING [facility] Start: 2000 Screening for malignant neoplasm of cervix [facility] Start: 1991 PAP TESTING PAP TESTING [facility] Start: 1991 Screening for malignant neoplasm of cervix [facility] Start: 1989 DTaP/Tdap/Td Vaccines (1 - Tdap) DTaP/Tdap/Td Vaccines (1 - Tdap) [facility] Start: 1989 Hepatitis B vaccination HEP B VACCINE (1 of 3 - 19+ 3-dose series) [facility] Start: 1989 Hepatitis B Vaccine (1 of 3 - 19+ 3-dose series) Hepatitis B Vaccine (1 of 3 - 19+ 3-dose series) [facility] Start: 1989 Hepatitis B Vaccines (1 of 3 - 19+ 3-dose series) Hepatitis B Vaccines (1 of 3 - 19+ 3-dose series) [facility] Start: 1989 Pneumococcal vaccination PNEUMOCOCCAL VACCINE SERIES (1 of 2 - PCV) [facility] Start: 1989 Pneumococcal Vaccine: 50+ (1 of 2 - PCV) Pneumococcal Vaccine: 50+ (1 of 2 - PCV) [facility] Start: 1989 Pneumococcal Vaccine: 50+ Years (1 of 2 - PCV) Pneumococcal Vaccine: 50+ Years (1 of 2 - PCV) [facility] Start: 1989 Third diphtheria, tetanus and acellular pertussis (DTaP) vaccination TDAP (ADULT) [facility] Start: 1989 Urine microalbumin profile [facility] Start: 1988 Anxiety Screening Anxiety Screening [facility] Start: 1988 Depression Screening Depression Screening [facility] Start: 1988 HEPATITIS C SCREENING HEPATITIS C SCREENING [facility] Start: 1988 Hepatitis C screening Hepatitis C Screening [facility] Start: 1988 HIV SCREENING HIV SCREENING [facility] Start: 1985 HIV screening HIV SCREENING DISCUSSION [facility] Start: 1982 Adult depression screening assessment DEPRESSION SCREENING [facility] Start: 1982 COVID-19 VACCINE (1) COVID-19 VACCINE (1) [facility] Start: 1976 PNEUMOCOCCAL (1 - PCV) PNEUMOCOCCAL (1 - PCV) [facility] Start: 1976 Pneumococcal vaccination [facility] Start: 1975 COVID-19 VACCINE (#1) COVID-19 VACCINE (#1) [facility] Start: 1975 COVID-19 VACCINE (1) COVID-19 VACCINE (1) [facility] Start: 1971 MMR Vaccines (1 of 1 - Standard series) MMR Vaccines (1 of 1 - Standard series) [facility] Start: 01-22-1971 COVID-19 VACCINE (#1) COVID-19 VACCINE (#1) [facility] Start: 1970 HEPATITIS B (1 of 3 - 3-dose series) HEPATITIS B (1 of 3 - 3-dose series) [facility] Start: 1970 Hepatitis B Vaccine (1 of 3 - 3-dose series) Hepatitis B Vaccine (1 of 3 - 3-dose series) [facility] Start: 1970 Hepatitis C screening HEPATITIS C VIRUS SCREENING [facility] Start: 1970 HIV screening HIV Screening [facility] Start: 1970 Lipid panel Lipid Panel [facility] Start: 1970 Screening for malignant neoplasm of colon [facility] Start: 1970 Tetanus vaccination TETANUS [facility] Alanine aminotransfe rase [Enzymatic activity/volume] in Serum or Plasma [facility] Alanine aminotransfe rase [Enzymatic activity/volume] in Serum or Plasma [facility] Alanine aminotransfe rase [Enzymatic activity/volume] in Serum or Plasma [facility] Albumin [Mass/volume ] in Serum or Plasma [facility] Albumin [Mass/volume ] in Serum or Plasma [facility] Albumin [Mass/volume ] in Serum or Plasma [facility] Alkaline phosphatase [Enzymatic activity/volume] in Serum or Plasma [facility] Alkaline phosphatase [Enzymatic activity/volume] in Serum or Plasma [facility] Alkaline phosphatase [Enzymatic activity/volume] in Serum or Plasma [facility] Anion gap in Serum or Plasma [facility] Anion gap in Serum or Plasma [facility] Bacteria identified in Urine by Culture BACTERIAL CULTURE, URINE Microbiology Routine Burning with urination 12/24/2024 1:56 PM EST [facility] [facility] Work Phone: Basic metabolic 2008 panel with ionized calcium - Serum or Plasma [facility] Bilirubin, total measurement [facility] Bilirubin, total measurement [facility] Bilirubin, total measurement [facility] Bilirubin.direct [Mass/volume] in Serum or Plasma [facility] BUN/Creatinine ratio [facility] BUN/Creatinine ratio [facility] Calcium [Mass/volume ] in Serum or Plasma [facility] Calcium [Mass/volume ] in Serum or Plasma [facility] Carbon dioxide, tota l [Moles/volume] in Central venous blood [facility] Carbon dioxide, tota l [Moles/volume] in Central venous blood [facility] CBC W Auto Different ial panel - Blood [facility] CBC W Auto Different ial panel - Blood [facility] CBC W Auto Different ial panel - Blood [facility] Comprehensive metabo lic 1999 panel - Serum or Plasma [facility] Comprehensive metabo lic 1999 panel - Serum or Plasma [facility] Creatinine [Mass/vol ume] in Serum or Plasma [facility] Creatinine [Mass/vol ume] in Serum or Plasma [facility] End: 10-25-2025 DBT Breast - bilateral screening [facility] Work Phone: Comment on above: 1 Occurrences starting 09/25/2024 until 10/25/2025 DBT Breast - bilater al screening BRITTANY SCREENING W ALFONSO Radiology Routine Encounter for screening mammogram for breast cancer 09/29/2024 1:34 PM EST [facility] Work Phone: End: 01-27-2024 EMG(NEURO/NI) EMG(NEURO/NI) EMG Routine Numbness 1 Occurrences starting 01/26/2023 until 01/27/2024 [facility] Work Phone: Comment on above: 1 Occurrences starting 01/26/2023 until 01/27/2024 Erythrocyte mean cor puscular volume determination [facility] Erythrocyte mean cor puscular volume determination [facility] Exploratory laparoto my celiotomy w/wo biopsy spx LAPAROTOMY, EXPLORATORY Intra-abdominal and pelvic swelling, mass and lump, unspecified site [facility] Ferritin [Mass/volum e] in Serum or Plasma [facility] Folate [Moles/volume ] in Serum or Plasma [facility] Glucose [Mass/volume ] in Serum or Plasma [facility] Glucose [Mass/volume ] in Serum or Plasma [facility] Hematocrit [Volume F raction] of Blood [facility] Hematocrit [Volume F raction] of Blood [facility] Hemoglobin [Mass/vol ume] in Blood [facility] Hemoglobin [Mass/vol ume] in Blood [facility] Hepatic function panel [facility] Iron and Iron bindin g capacity panel - Serum or Plasma [facility] Laparoscopy w/rmvl a dnexal structures LAPAROSCOPIC, SALPINGO-OOPHORECTOMY Intra-abdominal and pelvic swelling, mass and lump, unspecified site [facility] Leukocytes [#/volume ] in Blood [facility] Leukocytes [#/volume ] in Blood [facility] Lipid 1996 panel - S noemi or Plasma [facility] Lmtd lmphadec stagin g spx pel&para-aortic LYMPHADENECTOMY, PARA-AORTIC OR PELVIC, LIMITED, FOR STAGING Intra-abdominal and pelvic swelling, mass and lump, unspecified site [facility] Magnesium measurement [facility] Magnesium measurement [facility] Magnesium measurement [facility] Magnesium measurement [facility] Magnesium measurement [facility] Mean corpuscular hem oglobin concentration determination [facility] Mean corpuscular hem oglobin concentration determination [facility] Mean corpuscular hem oglobin determination [facility] Mean corpuscular hem oglobin determination [facility] Measurement of renal function [facility] Measurement of renal function [facility] Neutrophil count [facility] Neutrophil count [facility] Neutrophil percent differential count [facility] Neutrophil percent differential count [facility] Non-Gynecologic Cytology [facility] Work Phone: Comment on above: Release Upon Ordering for 1 Occurrences starting 01/26/2025, 1 completed Patient Education [facility] Work Phone: Patient referral [facility] Work Phone: Platelets [#/volume] in Blood [facility] Platelets [#/volume] in Blood [facility] Potassium measurement [facility] Potassium measurement [facility] Red blood cell count [facility] Red blood cell count [facility] Red cell distributio n width determination [facility] Red cell distributio n width determination [facility] Serum chloride measurement [facility] Serum chloride measurement [facility] Serum inorganic phos phate measurement [facility] Serum inorganic phos phate measurement [facility] Sodium measurement [facility] Sodium measurement [facility] Thyroid stimulating hormone measurement [facility] Tissue exam [facility] Comment on above: Release Upon Ordering for 1 Occurrences starting 01/26/2025 Total protein measurement [facility] Total protein measurement [facility] Total protein measurement [facility] Urea nitrogen [Mass/ volume] in Serum or Plasma [facility] Urea nitrogen [Mass/ volume] in Serum or Plasma [facility] Urine culture [facility] Urine culture [facility] Urine culture [facility] US Abdomen limited [facility] End: 08-26-2023 Us soft tissue head & neck real time imge docm US HEAD/NECK SOFT TISSUE OTHER Radiology Routine Neck mass 1 Occurrences starting 07/27/2022 until 08/26/2023 [facility] Work Phone: Comment on above: 1 Occurrences starting 07/27/2022 until 08/26/2023 Vitamin B12 measurement [facility] End: 05-18-2025 XR Chest PA and Lateral XR CHEST 2V FRONTAL/LAT Radiology STAT Acute cough 1 Occurrences starting 04/18/2024 until 05/18/2025 [facility] Work Phone: Comment on above: 1 Occurrences starting 04/18/2024 until 05/18/2025 End: 02-25-2024 XR HAND GENERAL 3V PA/LAT/OBL RIGHT XR HAND GENERAL 3V PA/LAT/OBL RIGHT Radiology Routine Trigger little finger of right hand 1 Occurrences starting 01/26/2023 until 02/25/2024 [facility] Work Phone: Comment on above: 1 Occurrences starting 01/26/2023 until 02/25/2024 XR HAND GENERAL 3V P A/LAT/OBL RIGHT XR HAND GENERAL 3V PA/LAT/OBL RIGHT Radiology Routine Trigger little finger of right hand 01/26/2023 3:43 PM EDT [facility] Work Phone: [facility] Payers Date Payer Category Payer Self-pay [id number] 2024 Blue Cross Jose Narvaez [facility] Care - [facility] BLUE CROSS [id number] 2024 Managed Care (unspecified) ANTHEM O PPO POS [id number] 2022 [employer] Blue Shield BLUE ACCE SS PPO [id number] 2022 Unknown ANTHEM BLUE ACCE SS PPO [id number] 2022-Present [phone] [id number] [place] [address] PPO [id number] 2022 Unknown ANTHEM BLUE ACCE SS PPO [id number] 2022-Present [phone] [address] [place] [address] PPO [id number] 2022 Unknown [id number] 1970 Unknown [id number] 2.16.840.1.565533.3.579.2. 594 Medicaid [id number] Unknown [id number] 2.16.840.1.657408.3.579.2. 462 Unknown [id number] 2.16.840.1.250099.3.579.2. 462 Unknown [id number] 2.16.840.1.951104.3.579.2. 462 Unknown [id number] 2.16.840.1.071800.3.579.2. 462 Unknown [id number] 2.16.840.1.518603.3.579.2. 462 Unknown [id number] 2.16.840.1.665996.3.579.2. 462 Unknown [id number] 2.16.840.1.509917.3.579.2. 462 Unknown [id number] 2.16.840.1.721837.3.579.2. 462 Unknown [id number] 2.16.840.1.272664.3.579.2. 462 Unknown [id number] 2.16.840.1.928391.3.579.2. 462 Unknown [id number] 2.16.840.1.456383.3.579.2. 462 Unknown [id number] 2.16.840.1.462421.3.579.2. 462 Unknown [id number] 2.16.840.1.581630.3.579.2. 462 Unknown [id number] 2.16.840.1.030497.3.579.2. 462 Unknown [id number] 2.16.840.1.893756.3.579.2. 462 Unknown [id number] 2.16.840.1.212582.3.579.2. 462 Unknown [id number] 2.16.840.1.716227.3.579.2. 462 Unknown [id number] 2.16.840.1.890885.3.579.2. 462 Unknown [id number] 2.16.840.1.656895.3.579.2. 462 Unknown [id number] 2.840.1.258938.3.579.2. 462 Unknown [id number] 2.840.1.936424.3.579.2. 462 Unknown [id number] 2.840.1.672282.3.579.2. 462 Unknown [id number] 2.840.1.133299.3.579.2. 462 Unknown [id number] 2.840.1.812923.3.579.2. 462 Unknown [id number] 2.16.840.1.587813.3.579.2. 462 Unknown [id number] 2.16840.1.006875.3.579.2. 462 Unknown [id number] 2.840.1.051369.3.579.2. 462 Unknown [id number] 2.16.840.1.030595.3.579.2. 462 Unknown [id number] 2.16.840.1.592738.3.579.2. 462 Unknown [id number] 2.16.840.1.386757.3.579.2. 462 Unknown [id number] 2.16.840.1.833634.3.579.2. 462 Unknown [id number] 2.16840.1.992938.3.579.2. 462 Unknown [id number] 2.16.840.1.985259.3.579.2. 462 Unknown [id number] 2.16.840.1.133692.3.579.2. 462 Unknown [id number] 2.16.840.1.555177.3.579.2. 462 Unknown [id number] 2.16.840.1.941858.3.579.2. 462 Unknown [id number] 2.16.840.1.543878.3.579.2. 462 Unknown [id number] 2.16.840.1.848787.3.579.2. 462 Social History Date Type Detail Facility Start: 05-21-2022 End: 12-08-2022 Tobacco smoking status NJIS Tobacco smoking consumption unknown [facility] Work Phone: Start: 1970 Sex Assigned At Not on file [facility] Start: 09-23-2021 End: 07-17-2025 Tobacco smoking status NJIS Smokes tobacco daily [facility] Start: 09-23-2021 End: 03-21-2025 Tobacco use and exposure Smokeless tobacco non-user [facility] Start: 09-25-2021 End: 12-24-2024 Alcohol intake Ex-drinker (finding) [facility] Start: 1970 Sex Assigned At Female C [facility] Start: 03-09-2022 End: 10-13-2022 Exposure to SARS-CoV-2 (event) Not sure [facility] Start: 06-09-2019 None [place] [facility] Start: 03-28-2021 Cigarettes [place] [facility] Start: 07-20-2022 End: 01-25-2023 History SDOH Alcohol Frequency 2 [facility] Start: 07-20-2022 End: 01-25-2023 History SDOH Alcohol Std Drinks 1 [facility] Start: 07-20-2022 History SDOH Social Connections Phone 5 [facility] Start: 07-20-2022 End: 01-25-2023 History SDOH Social Connections Living 3 [facility] Start: 07-20-2022 End: 01-25-2023 History SDOH Financial 4 [facility] Start: 01-25-2023 History SDOH Alcohol Std Drinks 0 [facility] Start: 01-24-2023 End: 03-21-2025 History of Social function [facility] Start: 01-24-2023 End: 03-21-2025 Social connection and isolation panel [facility] Do you belong to any clubs or organizations such as rastafari groups, unions, fraternal or athletic groups, or school groups? No [facility] Attends Club or Organization Meetings Not on file [facility] Are you now , , , , never or living with a partner? [facility] How often to you hav e a drink containing alcohol? Never [facility] How hard is it for y ou to pay for the very basics like food, housing, medical care, and heating Not very hard [facility] Do you feel stress - tense, restless, nervous, or anxious, or unable to sleep at night because your mind is troubled all the time - these days [OSQ] Rather much [facility] (I/We) worried edmar er (my/our) food would run out before (I/we) got money to buy more. Never true [facility] Start: 09-30-2021 Gender identity Identifies as female gender (finding) [facility] Start: 09-30-2021 Sexual orientation Heterosexual ([place] de [place] santos) [facility] Start: 11-15-1985 History of tobacco use Cigarette Smo ker [facility] Start: 01-17-2025 End: 03-21-2025 Alcoholic beverage intake Lifetime non-drinker (finding) [facility] Start: 01-16-2025 End: 02-27-2025 Sex Female (finding) [facility] Start: 04-15-1986 Tobacco smoking stat us NHIS Occasional tobacco smoker [facility] Start: 03-21-2025 Tobacco Comment I am slowly qu itting. Down from a pack a day to less than half a pack a day. [facility] NEGATED: Highlighted row Not [facility] Medical Equipment Procedure Code Equipment Code Equipment Origin al Text Equipment Identifier Dates Insertion, vascular access port ([id number]) [id number] FDA Start: 04-02-2025 Hysterectomy, total, abdominal [id number] FDA Start: 05-28-2022 Goals Date Patient Goal Desired Activity /State Functional Status Date Assessment Result Facility 07-18-2025 Functional status Ambulates [facility] Work Phone: 05-29-2022 Functional status Ambulates [facility] Work Phone: Mental Status Date Assessment Result Facility 07-18-2025 Cognitive function Voice/Name [facility] Work Phone: 07-16-2025 Cognitive function Awake;Appropr iate;Follows Commands [facility] Work Phone: 05-04-2025 Cognitive function Awake;Alert;A ppropriate;Follow s Commands [facility] Work Phone: 04-28-2025 Cognitive function Awake;Alert;A ppropriate;Follow s Commands [facility] Work Phone: 04-02-2025 Cognitive function Voice/Name [facility] Work Phone: 05-29-2022 Cognitive function Level Of Cons ciousness Awake;Alert;Appropriate;Follow s Commands [facility] Work Phone: 05-28-2022 Cognitive function Voice/Name [facility] Work Phone: 05-28-2022 Cognitive function Memory Description Int act [facility] Work Phone: Clinical Notes 03-31-2021 to 08-14-2025 Note Date & Type Note Facility 08-14-2025 Radiology Diagnostic study note [facility] 07-19-2025 Progress note Note Date/Time July 19, 2025 1:57pm [facility] [place] [address] OFFICE VISIT Date of Service: 07/19/25 1213 MR#: [id number] Acct: [id number] Name: UZMA MCDONALD Rep #: [id number] : 1970 From: Imani fair MD Age/Sex: 54/F Location: [facility] Status: Signed HPI Subjective Date of Service 07/19/25 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 The patient was seen in [facility] emergency room January 08, 2025 with [...] activity and tumor cell necrosis. IHC at [facility] positive for SMA, negative for desmin, STAT6, pancytokeratin, S100 and CD34. Additional IHC done at [facility] showed negative Desmin, negative Caldesmon, ER [...] of pelvic mass, omentectomy. * Docetaxel gemcitabine April?July: Received 4 out of planned 6 cycles then stopped due to toxicity and intolerance to side effects. Interval History Hospitalized July 16-2024 with generalized weakness, UTI, hyponatremia. To recovery [facility] Medical History Iron deficiency anemia [...] and no addt'l complaints, except as documented, anorexia and fatigue; Denies fever(s), night sweats or weight loss Eyes Eyes: Reports systems reviewed and no addt'l complaints, except as documented and dry eyes ENT HEENT: Reports systems reviewed and no addt'l complaints, except as documented; Denies mouth lesions Cardiovascular Cardiovascular: Reports systems reviewed and no addt'l complaints, except as documented and edema; Denies chest pain with activity Respiratory/Chest Respiratory/Chest: Reports systems reviewed and no addt'l complaints, except as documented; Denies cough or dyspnea Gastrointestinal Gastrointestinal: Reports systems reviewed and no addt'l complaints, except as documented; Denies change in bowel habits, hematochezia, melena or nausea Genitourinary Genitourinary: Reports systems reviewed and no addt'l complaints, except as documented, as per HPI and other Details: Occasional incontinence on straining or getting up ; Denies dysuria or hematuria Musculoskeletal Musculoskeletal: Reports systems reviewed and no addt'l complaints, except as documented, arthralgias and extremity pain; Denies back pain Integumentary Integumentary: Reports systems reviewed and no addt'l complaints, except as documented and other Details: Skin of the hands and feet improved ; Denies new lesions Neurologic Neurologic: Reports systems [...] complaints, except as documented Intake Vital Signs 07/17/25 13:55 07/19/25 12:15 07/19/25 12:59 Height 5 ft 7 in 5 ft 7 in 5 ft 7 in BP 94/54 L Blood Pressure Location Lt brachial Position Sitting Respiration 18 Pulse 73 Pulse Source Monitor Temp 97.2 F L Temperature Source Temporal Artery Pulse Oximetry (%) 97 Oxygen Delivery Method room air Intake Is patient in pain?: Yes (bilateral leg pain ) Pain scale (1-10): 7 Allergies No Known Allergies Allergy (Verified 07/19/25 12:58) Medications ?Medication ?Instructions ?Recorded ?Confirmed ?Type aspirin 81 mg chewable tablet 81 mg PO DAILY@0800 hx o f mi 06/09/19 07/19/25 History atorvastatin 80 mg tablet 80 mg PO QHS cholesterol #90 tabs 11/29/23 07/19/25 Rx cefdinir 300 mg capsule 300 mg PO BID #10 caps 07/1807/19/25 Rx Have you fallen in the past year?: Yes Central Venous Access Central Venous Access: Yes Port/PICC: Port CBC, CMP July 19, 2025 reviewed in EMR Exam Physical Exam Narrative ECOG 2, seen in a wheelchair, tired looking. Const alert and oriented x3 Coding Level of Care Code Off vis,est,level [...] showed no malignant cells. Was seen at [facility] by Dr. Cunningham in March 2025 who recommended standard adjuvant chemotherapy with gemcitabine Taxotere for 6 cycles followed by maintenance pazopanib plus letrozole indefinite/till progression. Started adjuvant gemcitabine and Taxotere April 19, 2025. She received 4 out of 6planned cycles then unable to complete the course due to toxicities including fatigue, cytopenias, hand-foot syndrome, musculoskeletal aches and pains and a decline in performance status. Of note her CA125 was not elevated. Chronic comorbid conditions: Obesity, dyslipidemia, coronary artery disease, hypertension and active smoker. Plan: Based on NCCN guideline and consultation with Drs. Grady and Octavio: 1-will conclude adjuvant gemcitabine Taxotere after 4 cycles due to intolerance to side effects July [address] scan of the chest abdomen and pelvis in 1 month 3. After recovery from chemotherapy toxicity in approximately 1 month will start adjuvant letrozole (2.5 mg daily) and pazopanib (will start at 400 mg daily gradually increasing dose as tolerated up to 800 mg standard dose) Impression and plan discussed with patient and family. Imani Persaud MD Cream [employer], [facility] of Medical Oncology & Hematology Department of Internal Medicine [place] [address] This note was generated using a voice [...] Have you fallen in the past year?: Yes 07/19/25 7430 <Electronically signed by Imani jones MD> Date _ Imani Persaud MD [facility] Signature: Date (if applicable) CC: Dr. Mackenzie Fink MD ~ [facility] Work Phone: [phone] [facility]09-02-2025 Progress note Author Kelli [facility] Note Date/Time July 17, 2025 3:47pm [facility] Medical Records Department [address] [place] [address] Progress Note 07/17/25 1541 MR#: [id number] Acct: [id number] Name: UZMA MCDONALD Rep #:[id number] : 1970 54 From: Kelli Sung MD PCP: Dr. Mackenzie Fink MD Status:ADM I N Location: [place] [address] Subjective Subjective Patient seen and examined with her nurse by her bedside. She was admitted with complaint of generalized weakness. 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 She came in with a complaint of weakness. Urinalysis showed evidence of UTI. She says she feels a bit better today. She had no active complaints at time of my review. Review systems otherwise negative. Objective Data Objective Data Vital Signs: Vital Signs Temp Pulse Resp BP Pulse Ox O2 Del Method 98.1 F 78 18 93/54 L 99 Room Air 07/17/25 14:16 07/17/25 14:16 07/17/25 14:16 07/17/25 14:16 07/17/25 14:16 07/17/25 14:16 Oxygen Delivery Method Room Air Weight: 216 lb 7.903 oz Body Mass Index (BMI) 33.9 Intake & Output: Intake and Output for Last 24 Hours 07/15/25 07/16/25 07/17/25 23:59 23:59 23:59 Intake Total 3080 / 3280 500 / 500 Output Total 550 / 550 Balance 3080 / 3030 -50 / -50 Lab / Micro Data 07/17/25 03:00 07/17/25 08:38 Labs: Laboratory Results - last 24 hr 07/16/25 15:19: Sodium 130 L, Potassium 3.8, Chloride 103, Carbon Dioxide 15.6 L, Anion Gap 12, BUN 14, Creatinine 0.61 L, Estim Creat Clear Calc 128.22, Est GFR (MDRD) Non-Af 106, BUN/Creatinine Ratio 22.1 H, Glucose 101 H, Serum Osmolality 275, Calcium 7.8, Troponin T High Sens 21 H 07/16/25 16:22: Urine Osmolality 624, Ur Random Sodium < 20, Urine Creatinine 173.00, Urine Potassium 83.2, Urine Chloride 20, Urine Urea Nitrogen 968 07/16/25 20:39: Sodium 131 L, Potassium 3.4, Chloride 105, Carbon Dioxide 15.8 L, Anion Gap 10, BUN 13, Creatinine 0.60 L, Estim Creat Clear Calc 129.01, Est GFR (MDRD) Non-Af 106, BUN/Creatinine Ratio 21.9 H, Glucose 105 H, Calcium 7.9 07/17/25 03:00: WBC 4.6, RBC 2.57 L, Hgb 8.1 L, Hct 25.2 L, MCV 98.1, MCH 31.5, MCHC 32.1, RDW Std Deviation 57.8 H, RDW Coeff of Estella 15.9 H, Plt Count 88 L, MPV 11.1, Neut % (Auto) Not Reportable, Absolute Neuts (auto) 4.0, Absolute Lymphs (auto) 0.41 L, Total Counted 100, Neutrophils % (Manual) 86 H, Lymphocytes % (Manual) 9 L, Eosinophils % (Manual) 4, Basophils % (Manual) 1, Toxic Granulation 1+, Dohle Bodies 1+, Platelet Estimate MOD DEC, Anisocytosis 1+, Tear Drop Cells 1+, Ovalocytes 1+, Sodium 132 L, Potassium 3.5, Chloride 105, Carbon Dioxide 16.2 L, Anion Gap 11, BUN 13, Creatinine 0.50 L, Estim CreatClear Calc 154.81, Est GFR (MDRD) Non-Af 112, BUN/Creatinine Ratio 27.1 H, Glucose 95, Calcium 8.1, Magnesium 2.1, TSH 5.230 H 07/17/25 08:38: Sodium 132 L, Potassium 3.6, Chloride 105, Carbon Dioxide 16.4 L, Anion Gap 11, BUN 13, Creatinine 0.41 L, Estim Creat Clear Calc 188.79, Est GFR (MDRD) Non-Af 117, BUN/Creatinine Ratio 31.5 H, Glucose 79, Calcium 8.1 Micro: Microbiology 07/16/25 15:30 Mucosa - Nasopharyngeal Respiratory Panel (PCR) - Final 07/16/25 10:55 Mucosa - Nose SARS-CoV-2, Influenza & RSV (PCR) - Final Radiography Diagnostic Testing: Radiology Impression Echocardiogram 07/16/25 14:47 Interpretation Summary The left ventricular ejection fraction is 60 %. Stage 1 diastolic dysfunction. Mild (1+) mitral valve insufficiency. The left atrium is moderately enlarged. Aneurysmal atrial septum. Ordering Physician: Barbie Cross Referring Physician: Mackenzie Fink Performed By: Yoana Ross, LORETTA, RVT Physical Exam Const alert, oriented x3 and no apparent distress General Appearance: cooperative HEENT normocephalic, head/scalp atraumatic, moist oral mucous membranes and oropharynxnormal Eyes EOMs intact bilaterally Neck no lymphadenopathy and supple Lymph Lymphatic: no lymphedema noted Resp normal respiratory effort, normal air movement and clear to auscultation bilaterally Cardio regular rate, regular rhythm, S1 normal heart sound, S2 normal heart sound and no murmurs GI normal to inspection, nondistended, normoactive bowel sounds, soft to palpation,non-tender and non-distended Extremity normal capillary refill, no clubbing, cyanosis or edema and no calf tenderness General Extremity: no tenderness to palpation of joints or extremities Skin Skin Narrative: alopecia from chemotherapy General Skin Exam: no breakdown Neuro CN's II-XII intact bilaterally, no focal motor deficits and no sensory deficits noted Motor Exam: general weakness Psych thought process normal and cooperative Appearance: appropriate Assessment & Plan Assessment/Plan (1) UTI (urinary tract infection): PLAN: Plan #Debility and weakness due to UTI * Admitted with a complaint of weakness. WBC was not elevated. * Urinalysis does show evidence of UTI. On IV antibiotics. * Await urine cultures. #Hypotension: Blood pressure has been low in the 90s systolic. She is currentlyasymptomatic. hydrate gently with iVF and consider midodrine also if BP remains low due to elevated BNP #Hyponatremia: #History of leiomyosarcoma: S/p left tube nephrectomy and omentectomy. Follows with oncology and on chemotherapy. #Elevated proBNP * Patient admits to a complaint of cough. proBNP was also found to be elevated. Clinically she does not look fluid overloaded though. * 2D echo ordered showed EF of 60% with stage I diastolic dysfunction and moderately enlarged left atrium as well as aneurysmal atrial septum * pro BNP was 4642. * not diursed with iV lasix due to hypotension. * #ELevated TSH: TSH was 5.23. will check free t4 and T3. #History of CAD s/p stents: Not compliant with aspirin or statin. Counseled to be compliant with these. #History of nicotine dependence: Counseled to quit. Nicotine patch as needed DVT prophylaxis: Lovenox Charges/Coding Visit Charges Inpatient E&M: 52632 Subs Hosp L2 07/17/25 1547 <Electronically signed by Kelli Sung MD> Kelli Sung MD Cosigner Signature (if applicable): CC: ~ Signed [facility] Work Phone: 1(306) 649-924109-01-2025 History and physical note Author Barbie Cross [facility] Note Date/Time July 16, 2025 1:58pm [facility] Medical Records Department [address] [place] [address] H&P Exam - Hospitalist 07/16/25 1346 MR#: [id number] Acct: [id number] Name: KAVEHESMEUZMA CAMACHO Rep #:[id number] 1 : 1970 54 From: Barbie Cross MD PCP: Dr. 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 Persaud presented to [facility] ED 07/16/2025 due to generalized weakness. In the ED temp 102.3, heart rate 107 and blood pressure 104/68, respiratory rate 18 pulse ox 100% on room air. CBC with a white blood cell count 8.8, hemoglobin 10.6, platelet count 121 and left shift noted, CK 59, CMP did show sodium of 128 down from 136 several days ago, bicarb of 18.2 with a gap of 9, BUN 13 creatinine 0.63, Trope found to be 21 with a repeat of 20 and a proBNP of 4600 but chest x-ray with no acute process. UA suspicious for UTI. Patient given IV antibioticsand due to her weakness and urinary tract infection hospitalist contacted for admission. Patient evaluated at bedside with present. Reportedly patient has had some nausea since her chemotherapy and some urinary incontinenceboth of which are typical after her chemo however yesterday she had a little bitof a headache and just felt very tired so she went to bed, went to the bathroom at 2 AM and was unable to get off the toilet, she crawled into her room and slept on the floor, reports she has had a runny nose and a little bit of a wet cough since then she thinks this is because there was a lot of dust and that it is allergy nature. Denies abdominal pain, denies diarrhea, did not know she hada fever at home. Denies any chest pain or shortness of breath. Denies any swelling. Does report she gets a little lightheaded when she sits up, did not really eat yesterday but has been trying to keep up on her fluids. [facility] Medical History Iron deficiency anemia [...] QHS cholesterol #90 tabs 11/29/23 Unknown Rx Allergy/AdvReac Type Severity Reaction Status Date / Time No Known Allergies Allergy Verified 07/16/25 09:19 Family History Father Kidney disease Aunt Cancer [...] Number of servings: 2 ROS ROS Narrative General: Did not note a fever at home but was febrile in the ED HENT: Little bit of a stuffy nose, headache yesterday, denies sore throat EYES: Denies changes in vision Resp: Chronic cough but since yesterday has been a little bit of a wet cough, denies shortness of breath Cardiac: Denies chest pain GI: Denies abdominal pain, denies changes in bowel, little bit nauseous since chemo : Urinary incontinence after chemo which happens every time per patient Extremity: Denies swelling MSK: Generalized weakness with no focal weakness Neuro: Chronic problems with neuropathy Heme: Denies any bleeding or bruising Skin: Denies rashes Psychiatric: No complaints voiced Vital Signs Vital Signs Vital Signs: 07/16/25 09:19 07/16/25 09:21 07/16/25 09:22 Temperature 102.3 F H 100.7 F H Temperature Source Oral Oral Pulse Rate 107 H 103 H Respiratory Rate 18 24 H Respiratory Effort Normal Non-Labored Respiratory Pattern Normal Blood Pressure 104/68 102/55 L Blood Pressure Mean 80 70 Pulse Ox 100 100 Oxygen Delivery Method Room Air Room Air 07/16/25 09:23 07/16/25 10:34 07/16/25 11:00 Temperature 100.9 F H 100.7 F H Temperature Source Oral Oral Pulse Rate 109 H 108 H Respiratory Rate 20 H 16 Respiratory Effort Normal Non-Labored Respiratory Pattern Blood Pressure 102/68 97/64 Blood Pressure Mean 79 75 Pulse Ox 98 98 Oxygen Delivery Method Room Air Room Air 07/16/25 12:00 07/16/25 13:00 07/16/25 13:19 Temperature 100.3 F H 99.8 F H 99.2 F H Temperature Source Oral Oral Pulse Rate 100 99 99 Respiratory Rate 19 H 22 H 16 Respiratory Effort Respiratory Pattern Blood Pressure 117/69 115/67 98/66 Blood Pressure Mean 85 83 76 Pulse Ox 100 93 97 Oxygen Delivery Method Room Air Room Air Weight Weight: 100.2 kg Body Mass Index (BMI) 34.6 Physical Exam Narrative General: Alert, oriented HEENT: Atraumatic, normocephalic Eyes: Anicteric, normal conjunctiva, extraocular movements grossly intact Neck: Supple Respiratory: Some transmitted upper airway sounds, normal respiratory effort Cardiovascular: Regular rate and rhythm GI: Soft, no rebound, guarding, rigidity, nondistended Extremities: No edema Musculoskeletal: Moving all extremities Neuro: No overt focal neurological deficits Skin: No rashes appreciated Psych: Cooperative Results Lab / Micro Data 07/16/25 10:30 07/16/25 10:30 Labs: Laboratory Results - last 24 hr 07/16/25 10:30: WBC 8.8, RBC 3.28 L, Hgb 10.6 L, Hct 32.0 L, MCV 97.6, MCH 32.3 H, MCHC 33.1, RDW Std Deviation 58.3 H, RDW Coeff of Estella 16.1 H, Plt Count 121 L, MPV 10.9, Neut % (Auto) Not Reportable, Absolute Neuts (auto) 8.6 H, Absolute Lymphs (auto) 0.08 L, Total Counted 100, Neutrophils % (Manual) 97 H, Band Neutrophils % 1, Lymphocytes % (Manual) 1 L, Basophils % (Manual) 1, Diff Path Review March foll, Platelet Estimate MOD, RBC Morphology NORM C+C, PT 17.1 H, INR 1.4, APTT 38.2 H, Sodium 128 L, Potassium 4.1, Chloride 101, Carbon Dioxide 18.2L, Anion Gap 9, BUN 13, Creatinine 0.63 L, Estim Creat Clear Calc 124.15, Est GFR (MDRD) Non-Af 105, BUN/Creatinine Ratio 20.1 H, Glucose 105 H, Lactic Acid 1.5, Calcium 8.1, Magnesium 1.8, Total Bilirubin 1.61 H, AST 23, ALT 15, Alkaline Phosphatase 64, Total Creatine Kinase 59, Troponin T High Sens 21 H, NTpro BNP II 4642 H, Total Protein 5.7 L, Albumin 2.9 L, Globulin 2.8, Albumin/Globulin Ratio 1.0 07/16/25 11:05: Urine Color Yellow, Urine Clarity Cloudy, Urine pH 6.0, Ur Specific [place] 1.015, Urine Protein 100 H, Urine Glucose (UA) Normal, Urine Ketones 15 H, Urine Occult Blood 250 H, Urine Nitrite Negative, Urine Bilirubin 1 H, Urine Urobilinogen 4 H, Ur Leukocyte Esterase 500 H, Urine RBC 25-50 SEEN, Urine WBC 10-25 SEEN, Ur Squamous Epith Cells 0-5 SEEN, Urine Bacteria 2+, UrineMucus 0 SEEN 07/16/25 12:20: Troponin T Hi Sens 2 Hr 20 H Micro: Microbiology 07/16/25 10:55 Mucosa - Nose SARS-CoV-2, Influenza & RSV (PCR) - Final Imaging Radiology Impression Chest X-Ray 07/16/25 10:00 IMPRESSION: No acute cardiopulmonary process. Reading Location: [id number] Assessment & Plan Assessment/Plan (1) UTI (urinary tract infection): PLAN: Plan #Generalized weakness suspect 2/2 UTI - UA suspicious for UTI and patient febrile -White blood cell count within normal limits but does have left shift -Treat with empiric antibiotics while awaiting culture and sensitivity data -PT/OT -Blood pressure has been variable in the ED but blood pressure cuff is on her forearm due to location of IVs so do not necessarily suspect that this is reliable - She did receive fluids in the ED #Hyponatremia - Patient does have elevated proBNP at 4600 but does not appear overloaded -Will check serum osmole's and urine studies -Trend BMP - Will check TSH - Will check echo # Increased cough - Patient reports after laying on the ground overnight next to the dust she has had a little bit of a wet cough and a runny nose which she thinks are likely allergies - COVID/flu/RSV negative - Will check respiratory panel - Schedule cetirizine - Chest x-ray read as no acute process - No wheezes or shortness of breath - On auscultation sounds as though there are some transmitted upper airway sounds as if patient coughs or moves lung sounds improve # 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 # Elevated pro BNP -Unclear significance, suspect patient's weakness is due to her urinary tract infection, does not clinically appear overloaded -Will check echocardiogram -Will hold off on empiric IV Lasix #Tobacco use -Advise cessation -Nicotine replacement available if desired # History of coronary artery disease with stenting -Patient with stenting in 2020 -Has not been compliant with aspirin or statin for the past 6 months -Suspect patient would benefit of resuming these on discharge #DVT ppx: Lovenox subcu Barbie Cross MD Charges/Coding Visit Charges Inpatient E&M: 85898 Init Hosp L2 07/16/25 1358 <Electronically signed by Barbie Cross MD> Cosigner Signature (if applicable): CC: Dr. Barbie Cross MD; Dr. Mackenzie Fink MD~ Signed [facility] Work Phone: 1(591) 491-559009-01-2025 Discharge summary Author Bj Waddell [facility] Note Date/Time July 16, 2025 1:43pm [facility] Medical Records Department [address] [place] [address] Emergency Department Summary 07/16/25 MR#: [id number] Acct: [id number] Name: UZMA MCDONALD YURIDIA Rep #:[id number] 2 : 1970 54 From: Bj brennan DO PCP: Dr. Mackenzie Fink MD Status:REG E R Location: ED HPI HPI - Fall History of Present Illness Chief Complaint: Fall Narrative Narrative: Chief complaint and HPI: 54-year-old female with 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 Persaud presents for evaluation of generalized weakness. History taken by patient as well as oncology note on 06/28/2025 in which she has a high-grade sarcoma. Patient states on she received chemotherapy. States she has had nausea and weakness. States yesterday she slept majority of the day. She went to use the restroom around 2 AM in which she was too weak to get off the toilet and slid to the ground. Did not hit her head. States she army crawled to the bedroom where she laid on the floor all night with blankets. States she threw things at the door today to get her 's attention in which he found her. She denies any fever, chills, shortness of breath, chest pain, abdominal pain, constipation, diarrhea. States she has urinary incontinence secondary to her chemotherapy. States she has a chronic cough since she was little. Review of systems: See HPI Medications: As listed on the chart Allergies: As listed on the chart PFSH: Per chart Vital signs: As listed on the chart. Reviewed. Physical exam: Gen: A&O x3, NAD Head: Normocephalic, atraumatic Eyes: No sclera icterus, conjunctiva clear, PERRL ENT: Moist mucous membranes Neck: Trachea midline, No JVD CV: Tachycardic, regular rhythm, no murmurs, no peripheral edema Resp: Lungs CTA BL, no w/r/c, + productive cough GI: Abd soft, non-distended, non-tender, no r/r/g Musc: Full ROM but generalized weakness, no deformity Skin: Warm, dry Neuro: Alert, oriented, grossly intact, sensation intact Psych: Cooperative, appropriate mood and affect [facility] Medical History Iron deficiency anemia Constipation [...] QHS cholesterol #90 tabs 11/29/23 Unknown Rx Allergy/AdvReac Type Severity Reaction Status Date / Time No Known Allergies Allergy Verified 07/16/25 09:19 Family History Father Kidney disease Aunt Cancer [...] 1 and tea Number of servings: 2 EXAM Physical Exam Const Vital Signs: 07/16/25 09:19 07/16/25 09:21 07/16/25 09:22 Temperature 102.3 F H 100.7 F H Temperature Source Oral Oral Pulse Rate 107 H 103 H Respiratory Rate 18 24 H Respiratory Effort Normal Non-Labored Respiratory Pattern Normal Blood Pressure 104/68 102/55 L Blood Pressure Mean 80 70 Pulse Ox 100 100 Oxygen Delivery Method Room Air Room Air 07/16/25 09:23 07/16/25 10:34 07/16/25 11:00 Temperature 100.9 F H 100.7 F H Temperature Source Oral Oral Pulse Rate 109 H 108 H Respiratory Rate 20 H 16 Respiratory Effort Normal Non-Labored Respiratory Pattern Blood Pressure 102/68 97/64 Blood Pressure Mean 79 75 Pulse Ox 98 98 Oxygen Delivery Method Room Air Room Air 07/16/25 12:00 07/16/25 13:00 07/16/25 13:19 Temperature 100.3 F H 99.8 F H 99.2 F H Temperature Source Oral Oral Pulse Rate 100 99 99 Respiratory Rate 19 H 22 H 16 Respiratory Effort Respiratory Pattern Blood Pressure 117/69 115/67 98/66 Blood Pressure Mean 85 83 76 Pulse Ox 100 93 97 Oxygen Delivery Method Room Air Room Air MDM MDM MDM Narrative Medical decision making narrative: 54-year-old female with past medical history leiomyosarcoma on chemotherapy withhistory of exploratory laparotomy, left oophorectomy, removal of pelvic mass, and omentectomy in January who follows with Dr. Persaud presents for evaluation of generalized weakness. History taken by patient as well as oncology note on 06/28/2025 in which she has a high-grade sarcoma. On presentation, patient no acute distress however she is tachycardic and febrile. States she did not know she was febrile. Differential diagnosis includes but is not limited to pneumonia, viral illness, UTI, electrolyte abnormality, dehydration, rhabdomyolysis, cardiomyopathy. NS bolus, Tylenol ordered for symptoms. Weakness/infectious workup ordered. CBC without leukocytosis. Patient has baseline anemia of 10.6. New thrombocytopenia of 121. INR unremarkable. CMP shows dehydration without PREET. Patient has hyponatremia at 128. This is down from 07/12 at 136. No PREET. No transaminitis. Lactic acid unremarkable. Magnesium level unremarkable. Troponin 21 and 20. BNP 4642. Patient not fluidoverloaded on exam. I suspect this may be cardiomyopathy from chemotherapy. UApositive for UTI. Urine culture sent. will cover broadly with Zosyn given she is immunocompromised. Chest x-ray was personally reviewed and interpreted by me, ED physician. Port in place, mild cardiomegaly, no pneumonia, pneumothorax,large effusion. Radiology in agreement. Given patient's generalized weakness with UTI and possibly new cardiomyopathy, patient will warrant admission for continued hydration and antibiotics. Patient firmly understand the plan. Patient was discussed with Dr. Cross who accepted admission. EKG: Interpreted by me/EM physician: EKG shows sinus tachycardia. No acute ischemic changes. Heart rate 103. Impression: 1. UTI 2. Hyponatremia with dehydration 3. Thrombocytopenia 4. Elevated BNP, concern for possible cardiomyopathy secondary to chemotherapy 5. History of immunocompromise secondary to chemotherapy for leiomyosarcoma Lab Data Labs: Laboratory Results - last 24 hr 07/16/25 07/16/25 07/16/25 10:30 11:05 12:20 WBC 8.8 RBC 3.28 L Hgb 10.6 L Hct 32.0 L MCV 97.6 MCH 32.3 H MCHC 33.1 RDW Std Deviation 58.3 H RDW Coeff of Estella 16.1 H Plt Count 121 L MPV 10.9 Neut % (Auto) Not Reportable Absolute Neuts (auto) 8.6 H Absolute Lymphs (auto) 0.08 L Total Counted 100 Neutrophils % (Manual) 97 H Band Neutrophils % 1 Lymphocytes % (Manual) 1 L Basophils % (Manual) 1 Diff Path Review May foll Platelet Estimate MOD RBC Morphology NORM C+C PT 17.1 H INR 1.4 APTT 38.2 H Sodium 128 L Potassium 4.1 Chloride 101 Carbon Dioxide 18.2 L Anion Gap 9 BUN 13 Creatinine 0.63 L Estim Creat Clear Calc 124.15 Est GFR (MDRD) Non-Af 105 BUN/Creatinine Ratio 20.1 H Glucose 105 H Lactic Acid 1.5 Calcium 8.1 Magnesium 1.8 Total Bilirubin 1.61 H AST 23 ALT 15 Alkaline Phosphatase 64 Total Creatine Kinase 59 Troponin T High Sens 21 H Troponin T Hi Sens 2 Hr 20 H NT pro BNP II 4642 H Total Protein 5.7 L Albumin 2.9 L Globulin 2.8 Albumin/Globulin Ratio 1.0 Urine Color Yellow Urine Clarity Cloudy Urine pH 6.0 Ur Specific [place] 1.015 Urine Protein 100 H Urine Glucose (UA) Normal Urine Ketones 15 H Urine Occult Blood 250 H Urine Nitrite Negative Urine Bilirubin 1 H Urine Urobilinogen 4 H Ur Leukocyte Esterase 500 H Urine RBC 25-50 SEEN Urine WBC 10-25 SEEN Ur Squamous Epith Cells 0-5 SEEN Urine Bacteria 2+ Urine Mucus 0 SEEN Radiography Diagnostic Testing: Clinical Impression(s) from Imaging Studies Chest X-Ray 07/16/25 10:00 IMPRESSION: No acute cardiopulmonary process. Reading Location: [facility] Discharge Plan Triage Chief Complaint: Fall Other Complaint: Weakness ED Provider: Bj Waddell Dx/Rx/DC Orders Prescriptions: No Action atorvastatin 80 mg tablet 80 mg PO QHS Qty: 90 3RF aspirin 81 MG tablet,chewable 81 mg PO DAILY@0800 Primary Care Provider: Mackenzie Fink Referrals: Mackenzie Fink MD [Primary Care Provider] - Print Language: Polish What to do if you have Problems For any increased pain, shortness of breath, bleeding, nausea or vomiting, chestpain, or any unexpected problems, contact your Primary Care Provider. Call [facility] ([phone]) or report to the closest Emergency Room. Call 911 if necessary. 07/16/25 1343 <Electronically signed by Bj Waddell DO> Cosigner Signature (if applicable): CC: Dr. Mackenzie Fink MD ~ Signed [facility] Work Phone: [phone]) 780-528509-01-2025 Discharge summary Author Bj Rodriguezgett [facility] Note Date/Time July 16, 2025 1:43pm [facility] Medical Records Department [address] [place] [id number] Emergency Department Summary 07/16/25 MR#: [id number] Acct: [id number] Name: UZMA MCDONALD Rep #:[id number] 2 : 1970 54 From: Bj brennan DO PCP: Dr. Mackenzie Fink MD Status:REG E R Location: ED HPI HPI - Fall History of Present Illness Chief Complaint: Fall Narrative Narrative: Chief complaint and HPI: 54-year-old female with 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 Persaud presents for evaluation of generalized weakness. History taken by patient as well as oncology note on 06/28/2025 in which she has a high-grade sarcoma. Patient states on she received chemotherapy. States she has had nausea and weakness. States yesterday she slept majority of the day. She went to use the restroom around 2 AM in which she was too weak to get off the toilet and slid to the ground. Did not hit her head. States she army crawled to the bedroom where she laid on the floor all night with blankets. States she threw things at the door today to get her 's attention in which he found her. She denies any fever, chills, shortness of breath, chest pain, abdominal pain, constipation, diarrhea. States she has urinary incontinence secondary to her chemotherapy. States she has a chronic cough since she was little. Review of systems: See HPI Medications: As listed on the chart Allergies: As listed on the chart PFSH: Per chart Vital signs: As listed on the chart. Reviewed. Physical exam: Gen: A&O x3, NAD Head: Normocephalic, atraumatic Eyes: No sclera icterus, conjunctiva clear, PERRL ENT: Moist mucous membranes Neck: Trachea midline, No JVD CV: Tachycardic, regular rhythm, no murmurs, no peripheral edema Resp: Lungs CTA BL, no w/r/c, + productive cough GI: Abd soft, non-distended, non-tender, no r/r/g Musc: Full ROM but generalized weakness, no deformity Skin: Warm, dry Neuro: Alert, oriented, grossly intact, sensation intact Psych: Cooperative, appropriate mood and affect [facility] Medical History Iron deficiency anemia Constipation [...] QHS cholesterol #90 tabs 11/29/23 Unknown Rx Allergy/AdvReac Type Severity Reaction Status Date / Time No Known Allergies Allergy Verified 07/16/25 09:19 Family History Father Kidney disease Aunt Cancer [...] 1 and tea Number of servings: 2 EXAM Physical Exam Const Vital Signs: 07/16/25 09:19 07/16/25 09:21 07/16/25 09:22 Temperature 102.3 F H 100.7 F H Temperature Source Oral Oral Pulse Rate 107 H 103 H Respiratory Rate 18 24 H Respiratory Effort Normal Non-Labored Respiratory Pattern Normal Blood Pressure 104/68 102/55 L Blood Pressure Mean 80 70 Pulse Ox 100 100 Oxygen Delivery Method Room Air Room Air 07/16/25 09:23 07/16/25 10:34 07/16/25 11:00 Temperature 100.9 F H 100.7 F H Temperature Source Oral Oral Pulse Rate 109 H 108 H Respiratory Rate 20 H 16 Respiratory Effort Normal Non-Labored Respiratory Pattern Blood Pressure 102/68 97/64 Blood Pressure Mean 79 75 Pulse Ox 98 98 Oxygen Delivery Method Room Air Room Air 07/16/25 12:00 07/16/25 13:00 07/16/25 13:19 Temperature 100.3 F H 99.8 F H 99.2 F H Temperature Source Oral Oral Pulse Rate 100 99 99 Respiratory Rate 19 H 22 H 16 Respiratory Effort Respiratory Pattern Blood Pressure 117/69 115/67 98/66 Blood Pressure Mean 85 83 76 Pulse Ox 100 93 97 Oxygen Delivery Method Room Air Room Air MDM MDM MDM Narrative Medical decision making narrative: 54-year-old female with past medical history leiomyosarcoma on chemotherapy withhistory of exploratory laparotomy, left oophorectomy, removal of pelvic mass, and omentectomy in January who follows with Dr. Persaud presents for evaluation of generalized weakness. History taken by patient as well as oncology note on 06/28/2025 in which she has a high-grade sarcoma. On presentation, patient no acute distress however she is tachycardic and febrile. States she did not know she was febrile. Differential diagnosis includes but is not limited to pneumonia, viral illness, UTI, electrolyte abnormality, dehydration, rhabdomyolysis, cardiomyopathy. NS bolus, Tylenol ordered for symptoms. Weakness/infectious workup ordered. CBC without leukocytosis. Patient has baseline anemia of 10.6. New thrombocytopenia of 121. INR unremarkable. CMP shows dehydration without PREET. Patient has hyponatremia at 128. This is down from 07/12 at 136. No PREET. No transaminitis. Lactic acid unremarkable. Magnesium level unremarkable. Troponin 21 and 20. BNP 4642. Patient not fluidoverloaded on exam. I suspect this may be cardiomyopathy from chemotherapy. UApositive for UTI. Urine culture sent. will cover broadly with Zosyn given she is immunocompromised. Chest x-ray was personally reviewed and interpreted by me, ED physician. Port in place, mild cardiomegaly, no pneumonia, pneumothorax,large effusion. Radiology in agreement. Given patient's generalized weakness with UTI and possibly new cardiomyopathy, patient will warrant admission for continued hydration and antibiotics. Patient firmly understand the plan. Patient was discussed with Dr. Cross who accepted admission. EKG: Interpreted by me/EM physician: EKG shows sinus tachycardia. No acute ischemic changes. Heart rate 103. Impression: 1. UTI 2. Hyponatremia with dehydration 3. Thrombocytopenia 4. Elevated BNP, concern for possible cardiomyopathy secondary to chemotherapy 5. History of immunocompromise secondary to chemotherapy for leiomyosarcoma Lab Data Labs: Laboratory Results - last 24 hr 07/16/25 07/16/25 07/16/25 10:30 11:05 12:20 WBC 8.8 RBC 3.28 L Hgb 10.6 L Hct 32.0 L MCV 97.6 MCH 32.3 H MCHC 33.1 RDW Std Deviation 58.3 H RDW Coeff of Estella 16.1 H Plt Count 121 L MPV 10.9 Neut % (Auto) Not Reportable Absolute Neuts (auto) 8.6 H Absolute Lymphs (auto) 0.08 L Total Counted 100 Neutrophils % (Manual) 97 H Band Neutrophils % 1 Lymphocytes % (Manual) 1 L Basophils % (Manual) 1 Diff Path Review May foll Platelet Estimate MOD RBC Morphology NORM C+C PT 17.1 H INR 1.4 APTT 38.2 H Sodium 128 L Potassium 4.1 Chloride 101 Carbon Dioxide 18.2 L Anion Gap 9 BUN 13 Creatinine 0.63 L Estim Creat Clear Calc 124.15 Est GFR (MDRD) Non-Af 105 BUN/Creatinine Ratio 20.1 H Glucose 105 H Lactic Acid 1.5 Calcium 8.1 Magnesium 1.8 Total Bilirubin 1.61 H AST 23 ALT 15 Alkaline Phosphatase 64 Total Creatine Kinase 59 Troponin T High Sens 21 H Troponin T Hi Sens 2 Hr 20 H NT pro BNP II 4642 H Total Protein 5.7 L Albumin 2.9 L Globulin 2.8 Albumin/Globulin Ratio 1.0 Urine Color Yellow Urine Clarity Cloudy Urine pH 6.0 Ur Specific [place] 1.015 Urine Protein 100 H Urine Glucose (UA) Normal Urine Ketones 15 H Urine Occult Blood 250 H Urine Nitrite Negative Urine Bilirubin 1 H Urine Urobilinogen 4 H Ur Leukocyte Esterase 500 H Urine RBC 25-50 SEEN Urine WBC 10-25 SEEN Ur Squamous Epith Cells 0-5 SEEN Urine Bacteria 2+ Urine Mucus 0 SEEN Radiography Diagnostic Testing: Clinical Impression(s) from Imaging Studies Chest X-Ray 07/16/25 10:00 IMPRESSION: No acute cardiopulmonary process. Reading Location: [facility] Discharge Plan Triage Chief Complaint: Fall Other Complaint: Weakness ED Provider: Bj Waddell Dx/Rx/DC Orders Prescriptions: No Action atorvastatin 80 mg tablet 80 mg PO QHS Qty: 90 3RF aspirin 81 MG tablet,chewable 81 mg PO DAILY@0800 Primary Care Provider: Mackenzie Fink Referrals: Mackenzie Fink MD [Primary Care Provider] - Print Language: Polish What to do if you have Problems For any increased pain, shortness of breath, bleeding, nausea or vomiting, chestpain, or any unexpected problems, contact your Primary Care Provider. Call [facility] ([phone]) or report to the closest Emergency Room. Call 911 if necessary. 07/16/25 1343 <Electronically signed by Bj Waddell DO> Cosigner Signature (if applicable): CC: Dr. Mackenzie Fink MD ~ Signed [facility] Work Phone: 1(254) 419-219309-01-2025 Radiology Diagnostic study [facility]07-31-2025 Progress [facility] [address] [place] [address] OFFICE VISIT Date of Service: 06/14/25 1015 MR#: [id number] Acct: [id number] Name: UZMA MCDONALD Rep #: [id number] : 1970 From: Richi Moore MD Age/Sex: 54/F [place] [facility] Status: Signed HPI Subjective Date of Service 06/14/25 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 The patient was seen in [facility] emergency room January 08, 2025 with [...] activity and tumor cell necrosis. IHC at [facility] positive for SMA, negative for desmin, STAT6, pancytokeratin, S100 and CD34. Additional IHC done at [facility] showed negative Desmin, negative Caldesmon, ER [...] Interval History Comes for C3D8. Feels well. [facility] Medical History Iron deficiency anemia [...] with C3D8 Gemzar and Taxotere. 06/14/25 1059 D> Date _ Richi Moore MD Cosigner Signature: Date (if applicable) CC: Dr. Mackenzie Fink MD ~ [facility]07-31-2025 Progress note Author Richi Moore [facility] Note Date/Time June 14, 2025 10:5 9am [facility] [address] [address] OFFICE VISIT Date of Service: 06/14/25 1015 MR#: [id number] Acct: [id number] Name: KAVEHMICHAELUZMA Rep #: [id number] : 1970 From: Richi Moore MD Age/Sex: 54/F [place] [facility] [place] Status: Signed HPI Subjective Date of Service 06/14/25 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 The patient was seen in [facility] emergency room January 08, 2025 with [...] activity and tumor cell necrosis. IHC at [facility] positive for SMA, negative for desmin, STAT6, pancytokeratin, S100 and CD34. Additional IHC done at [facility] showed negative Desmin, negative Caldesmon, ER [...] Interval History Comes for C3D8. Feels well. [facility] Medical History Iron deficiency anemia [...] Cosigner Signature: Date (if applicable) CC: Dr. Mackenzie Fink MD ~ [employer] Work Phone: 1(274) 612-848807-25-2025 Radiology Diagnostic study note [facility] Imaging Services [address] [place] [place] [id number] Abdomen Limited MR#: [id number] Acct: [id number] Name: UZMA MCDONALD Rep #: [id number] : 1970 F 54 From: Pet er Peer DO PCP: Dr. Mackenzie Fink MD Status: REG [facility] LYNN Study:Abdomen Limited Date of Exam: 05/16 04/08 Exam# [id number] Ordering Dr: Delmis Sibley NP CORE MANAGER-Dayday PROCEDURE: ABDOMEN LIMITED 06/08/2025 REASON FOR EXAM: [...] seen in the right kidney Reading Location: [facility] CC: CORE MANAGER-Dayday [place]ral; Dr. Mackenzie Fink MD ~ Naturopathic Doctor: Signed [facility]06-20-2025 Discharge summary [facility] Medical Records Department [address] [place] [address] Emergency Department Summary 05/04/25 MR#: [id number] Acct: [id number] Name: UZMA MCDONALD Rep #:[id number] : 1970 54 From: Radha ALEX PCP: Dr. Mackenzie Fink MD Status:REG E R Location: ED [...] under the care of Dr. Persaud and Gladis Loving. She had blood work drawn yesterday [...] none since. No melenahematochezia. No urinary symptoms. [facility] Medical History (Updated 05/04/25 @ 22:12 [...] 5.9 L Lymph % (Auto) 71.4 H Jay % (Auto) 11.9 H Eos % (Auto) 3.6 Baso % (Auto) 2.4 H Absolute Neuts (auto) 0.1 L Absolute Lymphs (auto) 0.60 L Nucleated RBC % 4.8 Differential Comment SCANNED Diff Path Review CORE MANAGER Platelet Estimate MKD DEC PT Cancelled 15.0 [...] Clarity Cloudy Urine pH 6.0 Ur Specific [place] 1.015 Urine Protein 100 H Urine Glucose [...] IMPRESSION: No acute cardiopulmonary process. Reading Location: [facility] History & Record Review Discussion w/independent historian: [...] 5.9 L Lymph % (Auto) 71.4 H Jay % (Auto) 11.9 H Eos % (Auto) 3.6 Baso % (Auto) 2.4 H Absolute Neuts (auto) 0.1 L Absolute Lymphs (auto) 0.60 L Nucleated RBC % 4.8 Differential Comment SCANNED Diff Path Review CORE MANAGER Platelet Estimate MKD DEC PT Cancelled 15.0 [...] Clarity Cloudy Urine pH 6.0 Ur Specific [place] 1.015 Urine Protein 100 H Urine Glucose [...] IMPRESSION: No acute cardiopulmonary process. Reading Location: [facility] Treatment and Re-Evaluation :: I have personally [...] Instructions: swish and swallow Primary Care Provider: Mackenzie Fink Referrals: Mackenzie Fink MD [Primary Care Provider] - Activity [...] for admission or worsening symptoms. Print Language: Polish Disposition Disposition: Home, Self Care What to do if you have Problems For any increased pain, shortness of breath, bleeding, nausea or vomiting, chestpain, or any unexpected problems, contact your Primary Care Provider. Call [facility] ([phone]) or report tothe closest Emergency Room. Call 911 if necessary. 05/04/252214 Cosigner Signature (if applicable): 05/04/252216 CC: Dr. Mackenzie Fink MD ~ Signed [facility]06-20-2025 Radiology Diagnostic study note [facility] Imaging Services [address] [place] [address] Chest PA and Lateral MR#: [id number] Acct: [id number] Name: UZMA MCDONALD Rep #: [id number] : 1970 F 54 From: Sandi Loza MD PCP: Dr. Mackenzie Fink MD Status: REG E R Study:Chest PA and Lateral Date of Exam: 05/04/25 Exam# [id number] Ordering Dr: Radha Sahu EXAM: XR Chest, [...] IMPRESSION: No acute cardiopulmonary process. Reading Location: [facility] CC: Dr. Mackenzie Fink MD; ISAI Payan ~ Naturopathic Doctor: Signed [facility]06-20-2025 Discharge summary Author Radha Norman [facility] Note Date/Time May 04, 2025 10:1 7[facility] Medical Records Department [address] [place] [address] Emergency Department Summary 05/04/25 MR#: [id number] Acct: [id number] Name: UZMA MCDONALD Rep #:[id number] : 1970 54 From: Radha ALEX PCP: Dr. Mcakenzie Fink MD Status:REG E R Location: ED [...] under the care of Dr. Persaud and Gladis Loving. She had blood work drawn yesterday [...] since. No melena hematochezia. No urinary symptoms. [facility] <ISAI Payan - Last Filed: 05/04/25 22:15> [facility] Medical History (Updated 05/04/25 @ [...] Oxygen Delivery Method Room Air Room Air [facility] <ISAI Payan - Last Filed: 05/04/25 22:15> [facility] Narrative Medical decision making [...] 5.9 L Lymph % (Auto) 71.4 H Jay % (Auto) 11.9 H Eos % (Auto) 3.6 Baso % (Auto) 2.4 H Absolute Neuts (auto) 0.1 L Absolute Lymphs (auto) 0.60 L Nucleated RBC % 4.8 Differential Comment SCANNED Diff Path Review CORE MANAGER Platelet Estimate MKD DEC PT Cancelled 15.0 [...] Clarity Cloudy Urine pH 6.0 Ur Specific [place] 1.015 Urine Protein 100 H Urine Glucose [...] IMPRESSION: No acute cardiopulmonary process. Reading Location: [facility] <Dr. Girish Mcgarry, - Last Filed: 05/04/25 22:16> MDM History [...] 5.9 L Lymph % (Auto) 71.4 H Jay % (Auto) 11.9 H Eos % (Auto) 3.6 Baso % (Auto) 2.4 H Absolute Neuts (auto) 0.1 L Absolute Lymphs (auto) 0.60 L Nucleated RBC % 4.8 Differential Comment SCANNED Diff Path Review CORE MANAGER Platelet Estimate MKD DEC PT Cancelled 15.0 [...] Clarity Cloudy Urine pH 6.0 Ur Specific [place] 1.015 Urine Protein 100 H Urine Glucose [...] IMPRESSION: No acute cardiopulmonary process. Reading Location: [facility] Treatment and Re-Evaluation :: I have personally [...] Instructions: swish and swallow Primary Care Provider: Mackenzie Fink Referrals: Mackenzie Fink MD [Primary Care Provider] - Activity [...] for admission or worsening symptoms. Print Language: Polish Disposition Disposition: Home, Self Care What to do if you have Problems For any increased pain, shortness of breath, bleeding, nausea or vomiting, chestpain, or any unexpected problems, contact your Primary Care Provider. Call [facility] ([phone]) or report to the closest Emergency Room. Call 911 if necessary. 05/04/252214 <Electronically signed by Radha ALEX> Cosigner Signature (if applicable): 05/04/252216 <Electronically signed by Girish Mcgarry DO> CC: Dr. Mackenzie Fink MD ~ Signed [facility] Work Phone: 1(814) 984-173506-14-2025 Discharge summary [facility] Medical Records Department [address] [place] [address] Emergency Department Summary 04/28/25 MR#: [id number] Acct: [id number] Name: UZMA MCDONALD Rep #:[id number] : 1970 54 From: Girish Hathaway PCP: Dr. Mackenzie Fink MD Status:REG E R Location: ED [...] showed no malignant cells. Was seen at [facility] sarcoma clinic by Dr. Cunningham in [...] has no abdominal pain. Nolower extremity swelling. [facility] Medical History Encounter for education [...] 81.3 H Lymph % (Auto) 17.3 L Jay % (Auto) 0.5 Eos % (Auto) 0.2 [...] Sl. Cloudy Urine pH 7.0 Ur Specific [place] 1.010 Urine Protein 100 H Urine Glucose [...] CHANGE SINCE THE PRIOR EXAM. Reading Location: [facility] Discharge Plan Triage Chief [...] 81 mg PO DAILY@0800 Primary Care Provider: Mackenzie Fink Referrals: Mackenzie Fink MD [Primary Care Provider] - Print Language: Polish What to do if you have Problems For any increased pain, shortness of breath, bleeding, nausea or vomiting, chestpain, or any unexpected problems, contact your Primary Care Provider. Call [facility] ([phone]) or report tothe closest Emergency Room. Call 911 if necessary. 04/28/25 0857 Cosigner Signature (if applicable): CC: Dr. Mackenzie Fink MD ~ Signed [facility]06-14-2025 Radiology Diagnostic study note [facility] Imaging Services [address] [place] [address] Chest PA and Lateral MR#: [id number] Acct: [id number] Name: KRISTINA MCDONALDTIMOTEO NEGRETE Rep #: [id number] : 1970 F 54 From: Lisette Mcdowell MD PCP: Dr. Mackenzie Fink MD Status: PRE E R Study:Chest PA and Lateral Date of Exam: 04/28/25 Exam# [id number] Ordering Dr: Tam Blackwell P. PROCEDURE: CHEST PA AND LATERAL 04/28/2025 [...] CHANGE SINCE THE PRIOR EXAM. Reading Location: [facility] CC: Dr. Mackenzie Fink MD; ED PHYSICIAN PROVIDER ~ Naturopathic Doctor: Signed [facility]06-14-2025 Discharge summary Author Girish Mcgarry [facility] Note Date/Time April 28, 2025 11:3 7pm [facility] Medical Records Department [address] [place] [address] Emergency Department Summary 04/28/25 MR#: [id number] Acct: [id number] Name: KRISTINA MCDONALDTIMOTEO NEGRETE Rep #:[id number] : 1970 54 From: Girish Hathaway PCP: Dr. Mackenzie Fink MD Status:REG E R Location: ED [...] showed no malignant cells. Was seen at [facility] sarcoma clinic by Dr. Cunningham in [...] no abdominal pain. No lower extremity swelling. [facility] Medical History Encounter for education Cancer [...] 81.3 H Lymph % (Auto) 17.3 L Jay % (Auto) 0.5 Eos % (Auto) 0.2 [...] Sl. Cloudy Urine pH 7.0 Ur Specific [place] 1.010 Urine Protein 100 H Urine Glucose [...] CHANGE SINCE THE PRIOR EXAM. Reading Location: [facility] Discharge Plan Triage Chief [...] 81 mg PO DAILY@0800 Primary Care Provider: Mackenzie Fink Referrals: Mackenzie Fink MD [Primary Care Provider] - Print Language: Polish What to do if you have Problems For any increased pain, shortness of breath, bleeding, nausea or vomiting, chestpain, or any unexpected problems, contact your Primary Care Provider. Call [employer] Registry ([phone]) or report to the closest Emergency Room. Call 911 if necessary. 04/28/25 1394 <Electronically signed by Girish Mcgarry DO> Cosigner Signature (if applicable): CC: Dr. 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 The patient was seen in [facility] emergency room January 08, 2025 with [...] activity and tumor cell necrosis. IHC at [facility] positive for SMA, negative for desmin, STAT6, pancytokeratin, S100 and CD34. Additional IHC done at [facility] showed negative Desmin, negative Caldesmon, ER [...] omentectomy. * Docetaxel gemcitabine April 19, 2025 [facility] Medical History Encounter for education [...] no focal motor deficits Coordination / Balance: cyqunz-nb-zbmu test normal Speech: speech normal Gait (Neuro): [...] showed no malignant cells. Was seen at [facility] sarcoma clinic by Dr. Cunningham in [...] discussed with patient . Imani Persaud MD Cream Tester, [facility] Divisions of Medical Oncology & Hematology Department of Internal Medicine [place] [phone] This note was generated using a voice [...] Note Date/Time April 26, 2025 9:37 am [facility] [place] [address] [address] OFFICE VISIT Date of Service: 04/26/25912 MR#: [id number] Acct: [id number] Name: UZMA MCDONALD Rep #: [id number] : 1970 From: Imani fair MD Age/Sex: 54/F [place] [facility] [place] Status: Signed HPI Subjective Date of Service 04/26/25 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 The patient was seen in [facility] emergency room January 08, 2025 with [...] activity and tumor cell necrosis. IHC at [facility] positive for SMA, negative for desmin, STAT6, pancytokeratin, S100 and CD34. Additional IHC done at [facility] showed negative Desmin, negative Caldesmon, ER [...] omentectomy. * Docetaxel gemcitabine April 19, 2025 [facility] Medical History Encounter for education [...] no focal motor deficits Coordination / Balance: akpyxu-ep-cjyy test normal Speech: speech normal Gait (Neuro): [...] showed no malignant cells. Was seen at [facility] sarcoma clinic by Dr. Cunningham in [...] discussed with patient . Imani Persaud MD Cream Tester, [facility] Divisions of Medical Oncology & Hematology Department of Internal Medicine [place] [phone] This note was generated using a voice [...] jones MD> Date _ Imani Persaud MD [facility] Signature: Date (if applicable) CC: ~ [employer] Work Phone: 1(359) 208-261206-05-2025 Progress [facility] [place] [address] OFFICE VISIT Date of Service: 04/19/25905 MR#: [id number] Acct: [id number] Name: UZMA MCDONALD Rep #: [id number] : 1970 From: Imani fair MD Age/Sex: 54/F Location[place] [facility] [place] Status: Signed HPI Subjective Date of Service 04/19/25 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 The patient was seen in [facility] emergency room January 08, 2025 with [...] activity and tumor cell necrosis. IHC at [facility] positive for SMA, negative for desmin, STAT6, pancytokeratin, S100 and CD34. Additional IHC done at [facility] showed negative Desmin, negative Caldesmon, ER [...] omentectomy. * Docetaxel gemcitabine April 19, 2025 [facility] Medical History Encounter for education [...] no focal motor deficits Coordination / Balance: epvcgj-og-vnvf test normal Speech: speech normal Gait (Neuro): [...] showed no malignant cells. Was seen at [facility] sarcoma clinic by Dr. Cunningham in [...] discussed with patient . Imani Persaud MD Cream Tester, [facility] Div[facility] of Medical Oncology & Hematology Department of Internal Medicine [place] [phone] This note was generated using a voice [...] Date (if applicable) CC: ~ [facility]06-04-2025 Evaluation note* Diagnosis Onset Date Resolution Status Admit Date Essential (primary) hypertension chronic April 18, 2025 [...] May 31, 2025 9:03am Constipation acute June 07 8:48am Encounter for chemotherapy management acute June [...] leiomyosarcoma of pelvis acute June 28 8:43am Encounter for chemotherapy management acute July 12 8:44am Iron deficiency anemia acute Au 2024 8:44am 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 acute July 12 8:44am 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 12 8:44am UTI (urinary tract infection) resol ed July 16, 2025 1:46pm 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 19 11:20am Encounter for education acute S [facility] 2024 10:58am Primary leiomyosarcoma of pelvis acute August 09, 2025 10:58am [facility] Work Phone: 1(557) 775-463006-04-2025 Evaluation note* Diagnosis Onset Date Resolution Status Admit Date Essential (primary) hypertension chronic April 18, 2025 [...] May 31, 2025 9:03am Constipation acute June 07 8:48am Encounter for chemotherapy management acute June [...] leiomyosarcoma of pelvis acute June 28 8:43am Encounter for chemotherapy management acute July 12 8:44am Iron deficiency anemia acute Au 2024 8:44am 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 acute July 12 8:44am 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 12 8:44am UTI (urinary tract infection) resol ed July 16, 2025 1:46pm 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 19 11:20am Encounter for education acute S 2024 10:58am Primary leiomyosarcoma of pelvis acute August 09, 2025 10:58am Primary leiomyosarcoma of pelvis acute August 16 3:20pm [facility] Work Phone: 1(100) 672-972405-21-2025 Progress [facility] [place] [address] OFFICE VISIT Date of Service: 04/04/25 1408 MR#: [id number] Acct: [id number] Name: UZMA MCDONALD Rep #: [id number] : 1970 From: Delmis Roberts ch CORE MANAGER CORE MANAGER-C Age/Sex: 54/F Location: [facility] [facility] Status: Signed HPI Subjective Date of Service 04/04/25 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 The patient was seen in [facility] emergency room January 08, 2025 with [...] activity and tumor cell necrosis. IHC at [facility] positive for SMA, negative for desmin, STAT6, pancytokeratin, S100 and CD34. Additional IHC done at [facility] showed negative Desmin, negative Caldesmon, ER [...] by way of spouse and adult children. [facility] Medical History (Updated 04/04/25 @ 15:35 by Delmis Corral CORE MANAGER, CORE MANAGER-C) Encounter for education Cancer Back pain Shortness [...] showed no malignant cells. Was seen at [facility] clinic by Dr. Cunningham in [...] the past year?: No 04/04/25 1537 h CORE MANAGER CORE MANAGER-C> Date _ Delmis Corral CORE MANAGER CORE MANAGER-C Cosigner Signature: Date (if applicable) CC: ~ [facility]05-21-2025 Progress note Author Delmis Corral 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 The patient was seen in [facility] emergency room January 08, 2025 with [...] activity and tumor cell necrosis. IHC at [facility] positive for SMA, negative for desmin, STAT6, pancytokeratin, S100 and CD34. Additional IHC done at [facility] showed negative Desmin, negative Caldesmon, ER [...] by way of spouse and adult children. [facility] Medical History (Updated 04/04/25 @ 15:35 by Delmis Corral NP, CORE MANAGER-C) Encounter for education Cancer Back pain Shortness [...] showed no malignant cells. Was seen at [facility] sarcoma clinic by Dr. Cunningham in [...] 1537 <Electronically signed by Delmis king NP CORE MANAGERPanchoC> Date _ Delmis Corral NP CORE MANAGER-C Cosigner Signature: Date (if applicable) CC: ~ [facility] Work Phone: 1(990) 335-781805-19-2025 Consult note [facility] Medical Records Department [address] [place] [address] Anesthesia Postop Eval II 04/02/25 1305 MR#: [id number] Acct: [id number] Name: UZMA MCDONALD Rep #:[id number] 6 : 1970 54 From: Ck Cotto MD PCP: Dr. Mackenzie Fink MD Status:REG S DC Y Race: C Location: [address] Anesthesia Postop Eval I Sum Postop Eval Completion status Anesthesia document: Postop Eval 1 completed: Yes Anesthesia Postop Eval I Summary Anesthesia Postop Eval I Summary: Anesthesia Postop Eval I: Assessment Summary Airway patent Yes 04/02/25 12:06 PSYCHOTHERAPIST COUNSELOR.HBARR Spontaneous unlabored Yes 04/02/25 12:06 PSYCHOTHERAPIST COUNSELOR.HBARR respirations Mental status Awake 04/02/25 12:06 PSYCHOTHERAPIST COUNSELOR.HBARR nausea No 04/02/25 12:06 PSYCHOTHERAPIST COUNSELOR.HBARR Vomiting No 04/02/25 12:06 PSYCHOTHERAPIST COUNSELOR.HBARR Anesthesia Postop Eval I: Fluid Summary Crystalloid volume administer 500 04/02/25 12:06 PSYCHOTHERAPIST COUNSELOR.HBARR (ml) Colloids volume administered ( ml) Blood Product volume administered (ml) Total IV fluid infused 500 04/02/25 12:06 PSYCHOTHERAPIST COUNSELOR.HBARR Anesthesia Postop Eval I: Summary Notes Anesthesia Complication No 04/02/25 12:06 PSYCHOTHERAPIST COUNSELOR.HBARR Anesthesia Complication Comment: Post-operative progress note Anesthesia: Postop Eval II Evaluation Mental status: Awake Pain Level: 0 nausea: No Vomiting: No 04/02/25 1305 > Date _ Ck العراقي Signature: Date CC: ~ Signed [facility]05-19-2025 Consult note Author Laquita Melendez [facility] Note Date/Time April 02, 2025 12:06 pm [facility] Medical Records Department [address] [place] [address] Anesthesia Postop Eval I 04/02/25 1153 MR#: [id number] Acct: [id number] Name: UZMA MCDONALD Rep #:[id number] : 1970 54 From: Laquita Melendez CRNA PCP: Dr. Mackenzie Fink MD Status:REG S DC Y Race: C Location: [place] [address] Anesthesia: Postop Eval I Current Vital Signs [...] by Laquita ALDRIDGE NA> Date _ Laquita العراقي Signature: Date CC: ~ Signed [facility] Work Phone: 1(753) 455-604705-19-2025 History and physical note Author Theo Richard [facility] Note Date/Time April 02, 2025 11:20 am [facility] Medical Records Department [address] [place] [address] History & Physical Exam 04/02/25 1120 MR#: [id number] Acct: [id number] Name: UZMA MCDONALD Rep #:[id number] 5 : 1970 54 From: Theo villegas MD PCP: Dr. Mackenzie Fink MD Status:REG S DC Location: [place] [address] History and Physical Date of Admission: 04/02/25 [...] willing to proceed Theo Richard MD Pager: [facility] [address] [place] [address] [address], [address] [place] [address] Office: I have examined the patient and the H&P has been reviewed. There are no clinicalchanges since date of exam. 04/02/25 1120 <Electronically signed by Theo Richard MD> Cosigner Signature (if applicable): CC: Dr. Theo Richard MD; Dr. Mackenzie Fink MD~ Signed [facility] Work Phone: 1(608) 458-249505-19-2025 Radiology Diagnostic study note [facility] Imaging Services [address] [place] [address] CXR for Line Placement MR#: [id number] Acct: [id number] Name: UZMA MCDONALD Rep #: [id number] 6 : 1970 F 54 From: Jake Canales MD PCP: Dr. Mackenzie Fink MD Status: REG S DC Study:CXR for Line Placement Date of Exam: 04/02/25 Exam# [id number] Ordering Dr: Theo Carmichael MD PROCEDURE: CXR [...] is upper limits of normal. Reading Location: [facility] CC: Dr. Theo Richard MD; Dr. Mackenzie Fink MD ~ Naturopathic Doctor: Signed [facility]05-19-2025 Discharge summary [facility] Medical Records Department [address] [place] [address] Instructions for Home/Discharge Instructions 04/02/25 1218 MR#: [id number] Acct: [id number] Name: UZMA MCDONALD YURIDIA Rep #:[id number] 5 : 1970 54 From: Theo villegas MD PCP: Dr. Mackenzie Fink MD Status:REG S DC Discharge Instructions [...] to schedule 2 week follow up appointment. [phone] Test Results: Test results from this visit will be discussed in further detail at your follow- up appointment, if applicable. Discharge Plan Admission Attending Provider: Theo Richard Primary Care Provider: Mackenzie Fink Instructions Print Language: Polish Discharge Orders/Prescriptions Prescriptions: No Action sertraline [Zoloft] 50 mg tablet 50 mg PO QHS famotidine [Pepcid] 20 mg tablet 20 mg PO BID atorvastatin 80 mg tablet 80 mg PO QHS Qty: 90 3RF aspirin 81 MG tablet,chewable 81 mg PO DAILY@0800 Referrals / Follow Up: Mackenzie Fink MD [Primary Care Provider] - Disposition Disposition (needs filled in before D/C Order can be placed): Home, Self Care 04/02/25 1219Anthoradha Richard MD CC: Dr. Mackenzie Fink MD ~ Signed [facility]05-19-2025 Procedure note [facility] Medical Records Department [address] [place] [address] Operative Report 04/02/25 1216 MR#: [id number] Acct: [id number] Name: UZMA MCDONALD Rep #:[id number] 4 : 1970 54 From: Theo villegas MD PCP: Dr. Mackenzie Fink MD Status:REG S TN Location: [place] [address] Operative Report (Standard) Operative Information Date of Procedure: 04/02/25 Pre-Operative Diagnosis: Need for vascular access for chemotherapy Post-Operative Diagnosis: Same Surgery/Procedure Performed: Ultrasound and fluoroscopy guided right chest port placement utilizingright IJ wrapper operator: No Type of Anesthesia: Local MAC RN [...] apply: Implanted device Implanted device details: 8 [place] PowerPort Estimated Blood Loss: 5 Specimen collected: [...] applicable): CC: Dr. Theo Richard MD; Dr. Mackenzie Fink MD~ Signed [facility]05-19-2025 Consult note [facility] Medical Records Department [address] [place] [address] Anesthesia Postop Eval I 04/02/25 1153 MR#: [id number] Acct: [id number] Name: KRISTINA MCDONALDTIMOTEO NEGRETE Rep #:[id number] : 1970 54 From: Laquita Melendez CRNA PCP: Dr. Mackenzie Fink MD Status:REG S DC Y Race: C Location: [place] [address] Anesthesia: Postop Eval I Current Vital Signs [...] CRNA Cosigner Signature: Date CC: ~ Signed [facility]05-19-2025 Consult note Author Ck [facility] Note Date/Time April 02, 2025 9:51a [facility] Medical Records Department [address] [place] [address] Pre-Anesthesia Evaluation 04/02/25 0951 MR#: [id number] Acct: [id number] Name: UZMA MCDONALD YURIDIA Rep #:[id number] 2 : 1970 54 From: Ck Cotto MD PCP: Dr. Mackenzie Fink MD Status:REG S DC Y Race: C Location: [facility] ASA Classification* ASA Classification ASA Classification: 3 [...] POSS LEFT Anesthesia History Anesthesia History - ambulatory services representative: Anesthesia History - ambulatory services representative Hx Hospitalization No 03/28/25 14:20 Any Problems [...] take am of surgery PONV PONV - ambulatory services representative: PONV - ambulatory services representative Female Yes 03/28/25 14:20 HX of Motion [...] 03/30/25 08:51 Respiratory Assessment Respiratory Assessment - ambulatory services representative: Respiratory Tract Infection Hx - ambulatory services representative Hx Respiratory Tract Infection No 03/28/25 14:20 STOP Sleep Apnea STOP Sleep Apnea - ambulatory services representative: STOP Sleep Apnea - ambulatory services representative Hx Hypertension Yes 03/28/25 14:20 Hx Sleep [...] Tobacco Use History Tobacco Use History - ambulatory services representative: Tobacco Use History - ambulatory services representative Tobacco Use Cigarettes 03/28/21 15:34 Smoking Status Current every day smoker 03/28/25 14:20 Hx Tobacco Use Yes 03/28/25 14:20 Years Smoking Packs Smoked per Day Smoking Cessation Date was within the last 15 years Hx Smoking Cessation Date Hx Smoking Cessation Counseling Hematologic Medial History Hematologic Hx - ambulatory services representative: Hematologic 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 Hx of Blood Transfusion Yes 03/28/25 14:20 [...] 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 History - ambulatory services representative: /Reproductive Hx- ambulatory services representative Hx Now No 03/28/25 14:20 Gestational Age [...] Ck Cotto MD > Date _ Ck Cotot MD [facility] Signature: Date CC: ~ Signed [facility] Work Phone: 1(348) 776-130805-19-2025 History and physical note [facility] Medical Records Department [address] [place] [address] History & Physical Exam 04/02/25 1120 MR#: [id number] Acct: [id number] Name: UZMA MCDONALD Rep #:[id number] 5 : 1970 54 From: Theo villegas MD PCP: Dr. Mackenzie Fink MD Status:REG S DC Location: [place] [address]- History and Physical Date of Admission: 04/02/25 [...] willing to proceed Theo Richard MD Pager: [facility] [address] [place] [address], [address] [place] [phone] Office: I have examined the patient and the H&P has been reviewed. There are no clinicalchanges since date of exam. 04/02/25 1120 Cosigner Signature (if applicable): CC: Dr. Theo Richard MD; Dr. Mackenzie Fink MD~ Signed [facility]05[facility]19[facility] Consult note [facility] Medical Records Department [address] [place] [address] Pre-Anesthesia Evaluation 04/02/25 0951 MR#: [id number] Acct: [id number] Name: UZMA MCDONALD Rep #:[id number] 2 : 1970 54 From: Ck Cotto MD PCP: Dr. Mackenzie Fink MD Status:REG S DC Y Race: C Location: [facility] ASA Classification* ASA Classification ASA Classification: 3 [...] POSS LEFT Anesthesia History Anesthesia History - ambulatory services representative: Anesthesia History - ambulatory services representative Hx Hospitalization No 03/28/25 14:20 Any Problems [...] take am of surgery PONV PONV - ambulatory services representative: PONV - ambulatory services representative Female Yes 03/28/25 14:20 HX of Motion [...] 03/30/25 08:51 Respiratory Assessment Respiratory Assessment - ambulatory services representative: Respiratory Tract Infection Hx - ambulatory services representative Hx Respiratory Tract Infection No 03/28/25 14:20 STOP Sleep Apnea STOP Sleep Apnea - ambulatory services representative: STOP Sleep Apnea - ambulatory services representative Hx Hypertension Yes 03/28/25 14:20 Hx Sleep [...] Tobacco Use History Tobacco Use History - ambulatory services representative: Tobacco Use History - ambulatory services representative Tobacco Use Cigarettes 03/28/21 15:34 Smoking Status Current every day smoker 03/28/25 14:20 Hx Tobacco Use Yes 03/28/25 14:20 Years Smoking Packs Smoked per Day Smoking Cessation Date was within the last 15 years Hx Smoking Cessation Date Hx Smoking Cessation Counseling Hematologic Medial History Hematologic Hx - ambulatory services representative: 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 Hx of Blood Transfusion Yes 03/28/25 14:20 [...] 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 History - ambulatory services representative: /Reproductive Hx- ambulatory services representative Hx Now No 03/28/25 14:20 Gestational Age (in weeks): EDC: Hx Hx Para Hx Section SAB No 03/28/25 14:20 Active Medications Active Medications: Current Medications Generic Name Dose Route Start Last Admin Trade Name Freq PRN Reason Stop Dose Admin Cefazolin Sodium 2 gm/ Sodium 110 mls @ 150 mls/hr 04/02/25 11:30 Chloride IV 04/02/25 12:13 INTRAOP ONE [facility] Medical History Cancer Back pain [...] no additional complaints, except as documented. 04/02/2551 > Date _ Ck Cotto MD [facility] Signature: Date CC: ~ Signed [facility]05-14-2025 Progress [facility] [address] [place] [address] OFFICE VISIT Date of Service: 03/28/25 1532 MR#: [id number] Acct: [id number] Name: UZMA MCDONALD Rep #: [id number] : 1970 From: Imani fair MD Age/Sex: 54/F Location[place] [facility] Status: Signed HPI Subjective Date of Service 03/28/25 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 The patient was seen in [facility] emergency room January 08, 2025 with [...] activity and tumor cell necrosis. IHC at [facility] positive for SMA, negative for desmin, STAT6, pancytokeratin, S100 and CD34. Additional IHC done at [facility] showed negative Desmin, negative Caldesmon, ER [...] mm left UVJ/posterior urinary bladder wall calculus. [facility] Medical History (Updated 03/28/25 @ [...] showed no malignant cells. Was seen at [facility] clinic by Dr. Cunningham in [...] Follow-up with cycle 1. Imani Persaud MD Cream Tester, [facility] Divisions of Medical Oncology & Hematology Department of Internal Medicine [place] [address] This note was generated using a voice [...] karen VALDEZ> Date _ Imani Persaud MD [facility] Signature: Date (if applicable) CC: Dr. Mackenzie Fink MD ~ [place] [address]-14-2025 Progress note Author Imani Persaud [facility] Note Date/Time March 28, 2025 4:15p m [facility] [place] [address] OFFICE VISIT Date of Service: 03/28/25 1532 MR#: [id number] Acct: [id number] Name: UZMA MCDONALD Rep #: [id number] : 1970 From: Imani fair MD Age/Sex: 54/F Location: [facility] Status: Signed HPI Subjective Date of Service 03/28/25 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 The patient was seen in [facility] emergency room January 08, 2025 with [...] activity and tumor cell necrosis. IHC at [facility] positive for SMA, negative for desmin, STAT6, pancytokeratin, S100 and CD34. Additional IHC done at [facility] showed negative Desmin, negative Caldesmon, ER [...] mm left UVJ/posterior urinary bladder wall calculus. [facility] Medical History (Updated 03/28/25 @ [...] showed no malignant cells. Was seen at [facility] sarcoma clinic by Dr. Cunningham in [...] Follow-up with cycle 1. Imani Persaud MD Cream Tester, [facility] Divisions of Medical Oncology & Hematology Department of Internal Medicine [place] [address] This note was generated using a voice [...] Cosigner Signature: Date (if applicable) CC: Dr. Mackenzie Fink MD ~ [employer] Work Phone: [phone]) 351-611105-13-2025 NoteReceived is a request for second opinion consultation by Dr. Christopher Cunningham. [facility] slide review Preoperative Diagnosis: Multiple large fibroids, menorrhagia, chronic iron deficiency from chronic blood loss.[facility] HospitalComment on above: Performed By: #### SURGP #### [facility] (DEFAULT) [address] [place] 384551005-12-2025 Radiology Diagnostic study note [facility] Imaging Services [address] [place] [address] Chest, Abd, Pel w/Contrast MR#: [id number] Acct: [id number] Name: KRISTINA MCDONALDTIMOTEO NEGRETE Rep #: [id number] 6 : 1970 F 54 From: Karen Estrada MD PCP: Dr. Mackenzie Fink MD Status: MICHAELLE LYNN Study:CT Chest, Abd, Pel w/Contrast Date of E xam: 03/26/25 Exam# [id number] Ordering Dr: Imani Persaud MD PROCEDURE: CT [...] KATE CC: Dr. Imani Persaud MD; Dr. Mackenzie Fink MD ~ Naturopathic Doctor: Signed [facility]05-12-2025 Evaluation note* Diagnosis Onset Date Resolution Status Admit Date Encounter for insertion of venous access port acute March 26 1:19pm Primary leiomyosarcoma of pelvis acute March 28, 2025 3:30pm Encounter for education acute 2024 1:47pm Primary leiomyosarcoma of pelvis acute [...] May 31, 2025 9:03am Constipation acute June 07 025 8:48am Encounter for chemotherapy management acute [...] leiomyosarcoma of pelvis acute June 28 8:43am [facility] Work Phone: [phone]) 929-695205-12-2025 Evaluation note* Diagnosis Onset Date Resolution Status Admit Date Encounter for insertion of venous access port acute March 26 1:19pm Primary leiomyosarcoma of pelvis acute March 28, 2025 3:30pm Encounter for education acute 2024 1:47pm Primary leiomyosarcoma of pelvis acute [...] acute May 31, 2025 9:03am Constipation acute Maisha 24th, 2 025 8:48am Encounter for chemotherapy management acute [...] leiomyosarcoma of pelvis acute July 12 8:44am [employer] [employer] [facility] Work Phone: 1(779) 934-133205-12-2025 Evaluation note* Diagnosis Onset Date Resolution Status Admit Date Encounter for insertion of venous access port acute March 26 1:19pm Primary leiomyosarcoma of pelvis acute March 28, 2025 3:30pm Encounter for education acute 2024 1:47pm Primary leiomyosarcoma of pelvis acute [...] May 31, 2025 9:03am Constipation acute June 07 025 8:48am Encounter for chemotherapy management acute [...] leiomyosarcoma of pelvis acute June 28 8:43am Encounter for chemotherapy management acute July 12 8:44am Iron deficiency anemia acute Au 2024 8:44am 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 acute July 12 8:44am 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 12 8:44am UTI (urinary tract infection) acute July 16, 2025 1:46pm [facility] Work Phone: 1(549) 943-215405-12-2025 Evaluation note* Diagnosis Onset Date Resolution Status [...] May 31, 2025 9:03am Constipation acute June 07 8:48am Encounter for chemotherapy management acute June [...] leiomyosarcoma of pelvis acute June 28 8:43am Encounter for chemotherapy management acute July 12 8:44am Iron deficiency anemia acute Au 2024 8:44am 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 acute July 12 8:44am 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 12 8:44am UTI (urinary tract infection) acute July 16, 2025 1:46pm 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 19 11:20am [employer] Work Phone: [phone]) 477-399205-12-2025 NoteReceived is a request for second opinion consultation by Dr. Christopher Cunningham. [facility] slide review Clinical Information: Intra-abdominal and pelvic swelling, mass and lump, unspecified site - R19.00 [ICD-10-CM].[facility]Comment on above:Performed By: #### SURGP #### [facility] (DEFAULT) [address] [place] [address] [phone] History of Present illness Narrative* Kim Craven [...] offered a hysterectomy for heavy menstrual periods [id number] but this was not covered by insurance. [...] left adnexal mass. She was seen by brine tank operator onc on 01/17/25 with exploratory lap on [...] -- doing all chores and active at [employer] job at [employer]. Called Dr Persaud (local hem/onc) sent to [...] History: Diagnosis Date Coronary artery disease of [place] heart with stable angina pectoris 07/27/2022 Heart [...] Resource Strain: Low Risk (01/26/2025) Received from [facility] Overall Financial Resource Strain (CARDIA) Difficulty of Paying Living Expenses: Not hard at all Food Insecurity: No Food Insecurity (01/26/2025) Received from [facility] Hunger Vital Sign Worried About Running Out of Food in the Last Year: Never true Ran Out of Food in the Last Year: Never true Transportation Needs: No Transportation Needs (01/26/2025) Received from [facility] PRAPARE - Transportation Lack of Transportation (Medical): No Lack of Transportation (Non-Medical): No Physical Activity: Inactive (01/26/2025) Received from [facility] Exercise Vital Sign Days of Exercise per Week: 0 days Minutes of Exercise per Session: 0 min Stress: Stress Concern Present (01/24/2023) Received from [facility] [employer] [place] [facility] [employer] [facility] - Occupational Stress Questionnaire Feeling of Stress : Rather much Social Connections: Moderately Isolated (01/24/2023) Received from [facility] Social Connection and Isolation Panel [NHANES] Frequency of Communication with Friends and Family: Three times a week Frequency of Social Gatherings with Friends and Family: Never Attends Caodaism Services: Never Active Member of Clubs or Organizations: No Attends Club or Organization Meetings: Not on file Marital Status: Personal Safety: Not At Risk (01/26/2025) Received from [facility] Humiliation, Afraid, Rape, and Kick questionnaire Fear of Current or Ex-Partner: No Emotionally Abused: No Physically Abused: No Sexually Abused: No Housing Stability: Unknown (01/26/2025) Received from [facility] Housing Stability Vital Sign Unable to Pay [...] 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 Children 35,33,29,28 years old - no cancer history Half brother - no cancer history Parents - no cancer history Maternal grandparents - no cancer history Parental grandparents - unknown as father is adopted Current Medications: Current Outpatient Medications Medication Sig atorvastatin 80 MG tablet Take 1 tablet by mouth daily. nystatin [id number] UNIT/GM Cream Apply topically Twice daily. Sertraline [...] in addendum. Thiscase was sent to the [facility] with the above diagnosis for parts A and B rendered by Dr. Pierce. Below is Dr. Pierce's comment. 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 Immunochemical stains performed by [employer] and submitted for review show that the tumor cells are positive for SMA and negative for desmin, STAT6, pancytokeratin, S100 and CD34. Immunochemical stains were performed at the [facility] with the following results: - Desmin: [...] have [facility] review [facility] ([facility], 05/28/22) and tumorremoval ex [facility] ([facility], 02/08/25) - We recommend local provider [...] Patient to continue to follow up with brine tank operator onc, local oncology, cardiology, and primary care [...] 2021 for multiple severe episodes of bleeding ([facility], Dr. May Saucedo); pathology demonstrated [...] (tumor #2), left oophorectomy, omentectomy (Dr. Grady, [facility], [place], [place]). 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 Tumor #2 was fragmented. On exam, she has no abdominal distention. Respirations are clear and unlabored. I [facility] at [facility] to revisit her initial ALEX, from [facility], 05/28/2022 as well as the Ex lap, from [facility], 02/08/2025. I also recommended NGS testing (Tempus xT, xM NeXT), including HRD status on her resection [...] to participate in the care of Uzma Yuridia Mcdonald. Christopher Cunningham MD Attending Physician, Medical Oncology * Kim Dela Cruz RN - 03/21/2025 1:00 PM EDT Signed YANETH sent to Intake coordinators to request pathology slides for Pathology review ([facility]): ALEX, from [facility], 05/28/2022 Ex lap, from [facility], 02/08/2025 documented in this encounterU [facility] Instructions* Patient Instructions* Kim Dela Cruz RN - 03/21/2025 1:00 PM EDT Starting on May 14, 2025, our clinic will be moving to the [facility] at [address] [place] [address], 4th floor. You may visit [email or web address] for additional information and driving directions. Garage and corporate recruiter parking are available. Feel free to call our office with any questions. [facility] Dr. Christopher Cunningham, Dr. Mateo Bear, Dr. Davide Davis, and Dr. Usha Mueller PA-C, Leo Pettit, RN, RN, Júnior Minor, RN, Era Caraballo, RN, Shawna Dela Cruz, RN [address] 5th [address], [place] [address] Quality Associate: Jazmine MCELROY [phone] Patient Care Tool Filer Hand RN: Pancho Urias [phone] + Susy Estrella [phone] Please allow 10-14 business days for the completion of FMLA/Disability paperwork. Please send refill requests through your Impact[employer] or call the office at least 48 [...] do not send urgent requests through your Impacthart since these messages are not monitored as frequently throughout the day as phone calls. Results of imaging and pathology will be discussed at your follow up office visit with your provider. Our office does not give imaging or pathology results over the phone. If you have questions regarding the approval of imaging that is scheduled, please call [facility] pre-certification line at [phone] to obtain that information. We know your [...] Experience General Line . [facility] Evaluation note * Diagnosis Onset Date Resolution [...] of pelvis acute May 10, 2025 9:09am [employer] Work Phone: 1(960) 762-120704-14-2025 Evaluation note* Diagnosis Onset Date Resolution Status [...] of pelvis acute May 31, 2025 9:03am [employer] Work Phone: 1(157) 161-182404-14-2025 Evaluation note* Diagnosis Onset Date Resolution Status [...] transaminase measurement noneactive June 07, 2025 8:48am [facility] Work Phone: 1(480) 912-299504-14-2025 Evaluation note* Diagnosis Onset Date Resolution Status [...] transaminase measurement noneactive June 07, 2025 8:48am [facility] Work Phone: 1(323) 969-939004-14-2025 Evaluation note* Diagnosis Onset Date Resolution Status [...] of pelvis acute June 14, 2025 8:[address] [facility] Work Phone: 1(650) 832-641904-04-2025 Telephone encounter Note* Telephone Encounter - Darvin Grady MD - 02/16/2025 11:13 AM EDT Pt called with path, to see Med Onc . Rec chemo. To see after chemo to discuss metalsmith surveillance [facility] Work Phone: 1(486) 396-442704-04-2025 Miscellaneous Notes* Telephone Encounter - Darvin Grady MD - 02/16/2025 11:13 AM EDT Pt called with path, to see Med Onc . Rec chemo. To see after chemo to discuss metalsmith surveillance documented in this encounterSChillicothe VA Medical CenterCbkqhb99-12-9186 Telephone encounter Note* Telephone Encounter - Daquandavid Boyce - 02/15/2025 11:06 AM EDT Faxed to Dr. Persaud at [phone] via [employer]. Confirmation scanned within media [place] [id number] Telephone encounter Note* Telephone Encounter - Daquandavid Boyce - 02/15/2025 11:06 AM EDT ----- Message from Darvin Grady MD sent at 02/14/2025 3:41 PM EDT ----- Gabbi fax to Dr Lopez at [facility] ----- Message ----- From: Valerie Johnson Sent: 01/31/2025 1:18 PM EDT To: Darvin Grady MD [address] Thomas [id number] Miscellaneous Notes* Telephone Encounter - Daquan Boyce - 02/15/2025 11:06 AM EDT Faxed to Dr. Persaud at [phone] via [employer]. Confirmation scanned within media * Telephone Encounter - Daquan Boyce - 02/15/2025 11:06 AM EDT ----- Message from Darvin Grady MD sent at 02/14/2025 3:41 PM EDT ----- Gabbi fax to Dr Lopez at [facility] ----- Message ----- From: Valerie Johnson Sent: 01/31/2025 1:18 PM EDT To: Darvin Grady MD documented in this encounterSChillicothe VA Medical CenterFfkchp08-99-0808 Telephone encounter Note* Telephone Encounter - SREEDHAR Klein CNP - 02/14/2025 3:[address] Grady request, Called Dr Persaud's office at [facility] and provided recommendation for gemzar/taxotere for leiomyosarcoma. Dr Grady requested they send patient back to see him after chemo is completed. He does not need to see her before then. Called patient and informed her ofsame. She verbalized understanding and agreement with plan. [facility] [id number] Miscellaneous Notes* Telephone Encounter - SREEDHAR Klein CNP - 02/14/2025 3:[address] Grady request, Called Dr Persaud's office at [facility] and provided recommendation for gemzar/taxotere for leiomyosarcoma. Dr Grady requested they send patient back to see him after chemo is completed. He does not need to see her before then. Called patient and informed her ofsame. She verbalized understanding and agreement with plan. documented in this [facility]04-02-2025 History of Present illness Narrative* SREEDHAR Klein [...] in addendum. Thiscase was sent to the [facility] with the above diagnosis for parts A and B rendered by Dr. Pierce. Below is Dr. Pierce's comment. 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 Immunochemical stains performed by [facility] and submitted for review show that the tumor cells are positive for SMA and negative for desmin, STAT6, pancytokeratin, S100 and CD34. Immunochemical stains were performed at the [facility] with the following results: - Desmin: [...] pt would like to get chemo at [facility] infusion center near her house - Discussed [...] care as described above. documented in this [facility]04-02-2025 Telephone encounter Note* Telephone Encounter - Darvin Grady MD - 02/14/2025 10:35 AM EDT Mail box full [employer] Phone: 1(982) 424-594404-02-2025 Miscellaneous Notes* Telephone Encounter - Darvin Grady MD - 02/14/2025 10:35 AM EDT Mail box full documented in this [facility]03-15-2025 NoteSinus rhythm Low voltage, precordial leads Poor R wave progression Electronically Signed On 01-27-2025 11:41:44 EDT by Linus CainCV EPIPHANY 01-27-2025 NoteSinus rhythm Low voltage, precordial leads Poor R wave progression Electronically Signed On 01-27-2025 11:41:44 EDT by Linus Maria EPIPHANY 01-27-2025 NoteIMPRESSION: Sinus rhythm Low voltage, precordial leads Poor R wave progression Electronically Signed On 01-27-2025 11:41:44 EDT by Linus [facility] [id number] NoteGyn ONC Discharge Summary Patient Name: Uzma Mcdonald Patient : 1970 Primary Care Physician: Mackenzie Fink MD Admit Date: 01/26/2025 Attending Provider: [...] Your Medications These medications were sent to [facility] [address] [place], [place] [address] Hours: Wednesday to Wednesday 10 am to [...] restrictions reviewed. Reyna Mcgill DO 01/27/2025, 9:51 [facility]03-15-2025 Hospital course Narrative* Reyna Mcgill DO - 01/27/2025 9:50 AM EDT Images from the original note were not included. Clinical Cytogenetics Director ONC Discharge Summary Patient Name: Uzma Mcdonald Patient : 1970 Primary Care Physician: Mackenzie Fink MD Admit Date: 01/26/2025 Attending Provider: [...] Your Medications These medications were sent to [facility] [address] [place] [address] Hours: Wednesday to Wednesday 10 am to [...] 01/27/2025 6:08 PM EDT documented in this [facility]03-15-2025 History of Present illness Narrative* Reyna Mcgill DO - 01/27/2025 6:09 AM EDT Images from the original note were not included. 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 female , POD#1 [...] will discuss with attending HTN Hx of TX -On Lopressor and cozaar -On Plavix and bASA at home Principal Problem: Pelvic mass Please page the [facility] ONC Call RES group via Secure Chat [...] answered. Sumaya Marroquin MD documented in this encounterSChillicothe VA Medical CenterNkcbvj74-03-7263 Plan of care note* Care Plan - Veda Hickman RN - 01/27/2025 5:04 AM EDT Problem: Pain - Adult Goal: Verbalizes/displays adequate comfort level or baseline comfort level Outcome: Progressing Problem: Safety - Adult Goal: Free from fall injury Outcome: Progressing Problem: Discharge Planning Goal: Discharge to home or other facility with appropriate resources Outcome: Progressing [facility] [id number] Miscellaneous Notes* Care Plan - Veda Hickman [...] resected. Hemostasis was with several small 3-0 Trsprmdwbxws-ih-agfig's in the bladder peritoneum Bovie cautery as [...] 01/26/25 0928 Routine Description: LEFT OVARY Staff: Computing Services Director: Dora Castro RN Scrub Person: Daysi Escobar RN [place] to Circ: Sabrina Philip RN Findings: Leiomyosarcoma [...] receiving Vancomycin or flouroquinolone) documented in this [facility]03-14-2025 Plan of care note* Care Plan - Jenny Torres RN - 01/26/2025 5:49 PM EDT Problem: Pain - Adult Goal: Verbalizes/displays adequate comfort level or baseline comfort level Outcome: Progressing Problem: Safety - Adult Goal: Free from fall injury Outcome: Progressing Problem: Discharge Planning Goal: Discharge to home or other facility with appropriate resources Outcome: Progressing [facility] [id number] Nurse Note* Jenyn Torres RN - 01/26/2025 4:40 PM EDT Meds to Beds delivered to patient. Pt declined oxycodone prescription and sent back with Meds to Beds. [facility] [id number] Nurse Note* Jenny Torres RN - 01/26/2025 4:40 PM EDT Meds to Beds delivered to patient. Pt declined oxycodone prescription and sent back with Meds to Beds. * Roxy Jimenez RN - 01/26/2025 10:34 AM EDT Patient family/visitor updated by RN at this time. documented in this [place] [id number] Nurse Note* Perioperative Nursing Note - Addy Donald RN - 01/26/2025 11:31 AM EDT Report given to Jenny PACK [facility] [id number] Nurse Note* Perioperative Nursing Note - Addy Donald RN - 01/26/2025 11:26 AM EDT Faxed report sheet to [facility] [id number] Nurse Note* Roxy Jimenez RN - 01/26/2025 10:34 AM EDT Patient family/visitor updated by RN at this time. [facility] [id number] Hospital Discharge instructions* Discharge Instructions* Wendie Thompson DO - 01/26/2025 10:34 AM EDT Please follow your post operative care instructions given to you by your Ro[facility]er Oncologist's office at your pre operative visit. Please call the office with questions or concerns and be sure to follow up at your scheduled post operative visit. * Attachments The following attachments cannot be sent through Care Everywhere. * Exploratory Laparotomy Discharge Instructions (Polish) documented in this [facility]03-14-2025 NotePatient: Uzma Mcdonald Procedure Summary Date: 01/26/25 Room / Location: [address] Operating Room Anesthesia Start: 08 Anesthesia [...] Allowed opportunity for questions and acknowledgement of understanding.[facility] [id number] NotePatient: Uzma Mcdonald Procedure Summary Date: 01/26/25 Room / Location: [address] Operating Room Anesthesia Start: 822 Anesthesia [...] discharged once all PACU criteria has been met.[facility] [id number] NoteAirway Date/Time: 01/26/2025 8:29 AM Urgency: scheduled Airway not difficult General Information and Staff Patient location during procedure: Procedural Resident/PSYCHOTHERAPIST COUNSELOR: Skip Whittaker CRNA Performed: SRNA and PSYCHOTHERAPIST COUNSELOR Indications and Patient Condition Indications for airway [...] approach: 1 Number of other approaches attempted: [address] [place], [place] [address]03-14-2025 Note Peripheral Block Time Out: 01/26/2025 8:35 AM Patient location during procedure: Procedural Start time: 01/26/2025 8:35 AM End time: 01/26/2025 8:35 AM Reason for block: at surgeon's request and post-op pain management Staffing Performed: PSYCHOTHERAPIST COUNSELOR Resident/PSYCHOTHERAPIST COUNSELOR: Reggie Porter APRN - PSYCHOTHERAPIST COUNSELOR Preanesthetic Checklist Completed: patient identified, IV checked, site marked, risks and benefits discussed, surgical consent, monitors and equipment checked, pre-op evaluation and timeout performed Region: [place] Primary: TAP (Bupivacaine 0.375%/ Epi 1:200,000/ Dex 0.1mg/mL 40ml divided evenly bilateral) Secondary: Upper rectus (Bupivacaine 0.375%/ Epi 1:200,000/ Dex 0.1mg/mL 20ml divided evenly bilateral) Peripheral Block Patient position: supine Prep: ChloraPrep Patient monitoring: heart rate, sap architect, continuous pulse ox and continuous capnometry O2: [...] plane. and Local anesthetic injected without difficultyMedications gtiFDFANkozfy-dqayexsqyur-pkdnqotddri (TAP) syringe - Injection 60 mL - 01/26/2025 8:35:00 [facility] [id number] Procedure note* Op Note - Darvin Grady [...] resected. Hemostasis was with several small 3-0 Mndooruaysyu-xe-onjyi's in the bladder peritoneum Bovie cautery as [...] cover room in stable condition by anesthesia [facility] [id number] Procedure note* Brief Op Note - Darvin [...] 01/26/25 0928 Routine Description: LEFT OVARY Staff: Computing Services Director: Dora Castro RN Scrub Person: Daysi Escobar RN [place] to Circ: Sabrina Philip RN Findings: Leiomyosarcoma [...] (two hours if receiving Vancomycin or flouroquinolone) [facility]03-14-2025 NotePatient: Uzma Freetaconnie Procedure Information Date/Time: 01/26/25 0830 Procedures: LAPAROTOMY, EXPLORATORY (Abdomen) - 1 HOUR GENERAL TAP BLOCK LEFT LAPAROSCOPIC, SALPINGO-OOPHORECTOMY (Left: Abdomen) POSSIBLE LYMPHADENECTOMY, PARA-AORTIC OR PELVIC, LIMITED, FOR STAGING (Abdomen) LAPAROSCOPY, WITH BIOPSY (Abdomen) Location: [facility] OR [address] [place] [address] Operating Room Surgeons: Darvin Grady MD Relevant [...] voltage, precordial leads Equipment Requests: Additional Equipment RequestsHenry Ford Hospital [id number] Attending History and physical note* Darvin Grady [...] hysterectomy withRSO in the past. 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 Denies [...] Resource Strain: Low Risk (01/24/2023) Received from [facility] Overall Financial Resource Strain (CARDIA) Difficulty of Paying Living Expenses: Not very hard Food Insecurity: No Food Insecurity (01/24/2023) Received from [facility] Hunger Vital Sign Worried About Running Out of Food in the Last Year: Never true Ran Out of Food in the Last Year: Never true Transportation Needs: No Transportation Needs (01/24/2023) Received from [facility] PRAPARE - Transportation Lack of Transportation (Medical): No Lack of Transportation (Non-Medical): No Physical Activity: Insufficiently Active (01/24/2023) Received from [facility] Exercise Vital Sign Days of Exercise per Week: 2 days Minutes of Exercise per Session: 20 min Stress: Stress Concern Present (01/24/2023) Received from [facility] [employer] - Occupational Stress Questionnaire Feeling of Stress : Rather much Social Connections: Moderately Isolated (01/24/2023) Received from [facility] Social Connection and Isolation Panel [NHANES] Frequency of Communication with Friends and Family: Three times a week Frequency of Social Gatherings with Friends and Family: Never Attends Caodaism Services: Never Active Member of Clubs or Organizations: No Marital Status: Housing Stability: Low Risk (01/24/2023) Received from [facility] Housing Stability Vital Sign Unable to [...] nursing note reviewed. Exam conducted with a creative recruiter present. Constitutional: Appearance: She is obese. Cardiovascular: [...] on date of service as well as rprm-nj-lwaa counseling with patient was 35 minutes Patient has been asked to stop her Plavix 5 days before surgery [facility] Work Phone: 1(678) 281-847603-14-2025 NoteH&P reviewed. The patient was examined and there are no changes to the H&P.[employer] [id number] History and physical note* Darvin Grady MD [...] hysterectomy withRSO in the past. 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 Denies [...] Resource Strain: Low Risk (01/24/2023) Received from [facility] Overall Financial Resource Strain (CARDIA) Difficulty of Paying Living Expenses: Not very hard Food Insecurity: No Food Insecurity (01/24/2023) Received from [facility] Hunger Vital Sign Worried About Running Out of Food in the Last Year: Never true Ran Out of Food in the Last Year: Never true Transportation Needs: No Transportation Needs (01/24/2023) Received from [facility] PRAPARE - Transportation Lack of Transportation (Medical): No Lack of Transportation (Non-Medical): No Physical Activity: Insufficiently Active (01/24/2023) Received from [facility] Exercise Vital Sign Days of Exercise per Week: 2 days Minutes of Exercise per Session: 20 min Stress: Stress Concern Present (01/24/2023) Received from [facility] [employer] - Occupational Stress Questionnaire Feeling of Stress : Rather much Social Connections: Moderately Isolated (01/24/2023) Received from [facility] Social Connection and Isolation Panel [NHANES] Frequency of Communication with Friends and Family: Three times a week Frequency of Social Gatherings with Friends and Family: Never Attends Caodaism Services: Never Active Member of Clubs or Organizations: No Marital Status: Housing Stability: Low Risk (01/24/2023) Received from [facility] Housing Stability Vital Sign Unable to [...] nursing note reviewed. Exam conducted with a creative recruiter present. Constitutional: Appearance: She is obese. Cardiovascular: [...] on date of service as well as btmx-ve-sqzx counseling with patient was 35 minutes Patient has been asked to stop her Plavix 5 days before surgery documented in this [facility]03-07-2025 Telephone encounter Note* Telephone Encounter - Audelia Sams - 01/19/2025 11:38 AM EST PAT 01.23.2025 at 9:30 am by phone SX: 04.28.2025 at 8:30 am arrival at 6:30 am Post op 02.09.2025 at 11 am Folder and instructions given. [facility] [id number] Miscellaneous Notes* Telephone Encounter - Audelia Sams - 01/19/2025 11:38 AM EST PAT 01.23.2025 at 9:30 am by phone SX: 04.28.2025 at 8:30 am arrival at 6:30 am Post op 02.09.2025 at 11 am Folder and instructions given. documented in this [facility]03-05-2025 History of Present illness Narrative* Darvin [...] hysterectomy withRSO in the past. 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 Denies [...] Resource Strain: Low Risk (01/24/2023) Received from [facility] Overall Financial Resource Strain (CARDIA) Difficulty of Paying Living Expenses: Not very hard Food Insecurity: No Food Insecurity (01/24/2023) Received from [facility] Hunger Vital Sign Worried About Running Out of Food in the Last Year: Never true Ran Out of Food in the Last Year: Never true Transportation Needs: No Transportation Needs (01/24/2023) Received from [facility] PRAPARE - Transportation Lack of Transportation (Medical): No Lack of Transportation (Non-Medical): No Physical Activity: Insufficiently Active (01/24/2023) Received from [facility] Exercise Vital Sign Days of Exercise per Week: 2 days Minutes of Exercise per Session: 20 min Stress: Stress Concern Present (01/24/2023) Received from [facility] [employer] - Occupational Stress Questionnaire Feeling of Stress : Rather much Social Connections: Moderately Isolated (01/24/2023) Received from [facility] Social Connection and Isolation Panel [NHANES] Frequency of Communication with Friends and Family: Three times a week Frequency of Social Gatherings with Friends and Family: Never Attends Caodaism Services: Never Active Member of Clubs or Organizations: No Marital Status: Housing Stability: Low Risk (01/24/2023) Received from [facility] Housing Stability Vital Sign Unable to [...] nursing note reviewed. Exam conducted with a creative recruiter present. Constitutional: Appearance: She is obese. Cardiovascular: [...] on date of service as well as oeyo-cl-btam counseling with patient was 35 minutes Patient has been asked to stop her Plavix 5 days before surgery * Susy Blake MA - 01/17/2025 10:30 AM EST Chain[employer]ch Seat Joiner was offered to the patient for exam. 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 device sales representative in room during exam documented in this [facility]03-05-2025 NoteHPI: Uzma Mcdonald is a pleasant [...] with RSO in the past. 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 Denies [...] Resource Strain: Low Risk (01/24/2023) Received from [facility] Overall Financial Resource Strain (CARDIA) Difficulty of Paying Living Expenses: Not very hard Food Insecurity: No Food Insecurity (01/24/2023) Received from [facility] Hunger Vital Sign Worried About Running Out of Food in the Last Year: Never true Ran Out of Food in the Last Year: Never true Transportation Needs: No Transportation Needs (01/24/2023) Received from [facility] PRAPARE - Transportation Lack of Transportation (Medical): No Lack of Transportation (Non-Medical): No Physical Activity: Insufficiently Active (01/24/2023) Received from [facility] Exercise Vital Sign Days of Exercise per Week: 2 days Minutes of Exercise per Session: 20 min Stress: Stress Concern Present (01/24/2023) Received from [facility] [place] [employer] - Occupational Stress Questionnaire Feeling of Stress : Rather much Social Connections: Moderately Isolated (01/24/2023) Received from [facility] Social Connection and Isolation Panel [NHANES] Frequency of Communication with Friends and Family: Three times a week Frequency of Social Gatherings with Friends and Family: Never Attends Caodaism Services: Never Active Member of Clubs or Organizations: No Marital Status: Housing Stability: Low Risk (01/24/2023) Received from [facility] Housing Stability Vital Sign Unable to [...] nursing note reviewed. Exam conducted with a creative recruiter present. Constitutional: Appearance: She is obese. Cardiovascular: Rate and Rhythm: Normal rate and regular rhythm. Pulmonary: Effort: Pulmonary effort is normal. Breath sounds: Normal breath sounds. Abdominal: General: Abdomen is flat. A surgical scar is present. Palpations: Abdomen is soft. There is mass. Tenderness: There is abdominal tenderness. Comments: (more content not included)...[facility] [id number] Note HPI: Uzma Mcdonald is a pleasant [...] with RSO in the past. 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 Denies [...] Resource Strain: Low Risk (01/24/2023) Received from [facility] Overall Financial Resource Strain (CARDIA) Difficulty of Paying Living Expenses: Not very hard Food Insecurity: No Food Insecurity (01/24/2023) Received from [facility] Hunger Vital Sign Worried About Running Out of Food in the Last Year: Never true Ran Out of Food in the Last Year: Never true Transportation Needs: No Transportation Needs (01/24/2023) Received from [facility] PRAPARE - Transportation Lack of Transportation (Medical): No Lack of Transportation (Non-Medical): No Physical Activity: Insufficiently Active (01/24/2023) Received from [facility] Exercise Vital Sign Days of Exercise per Week: 2 days Minutes of Exercise per Session: 20 min Stress: Stress Concern Present (01/24/2023) Received from [facility] [employer] - Occupational Stress Questionnaire Feeling of Stress : Rather much Social Connections: Moderately Isolated (01/24/2023) Received from [facility] Social Connection and Isolation Panel [NHANES] Frequency of Communication with Friends and Family: Three times a week Frequency of Social Gatherings with Friends and Family: Never Attends Caodaism Services: Never Active Member of Clubs or Organizations: No Marital Status: Housing Stability: Low Risk (01/24/2023) Received from [facility] Housing Stability Vital Sign Unable to [...] nursing note reviewed. Exam conducted with a creative recruiter present. Constitutional: Appearance: She is obese. Cardiovascular: Rate and Rhythm: Normal rate and regular rhythm. Pulmonary: Effort: Pulmonary effort is normal. Breath sounds: Normal breath sounds. Abdominal: General: Abdomen is flat. A surgical scar is present. Palpations: Abdomen is soft. There is mass. Tenderness: There is abdominal tenderness. Comments: (more content not included)...[facility]02-28-2025 Radiology Diagnostic study note [facility] Imaging Services [address] [place], [place] [address] Transvaginal Non- MR#: [id number] Acct: [id number] Name: UZMA MCDONALD Rep #: [id number] : 1970 F 54 From: Jake Canales MD PCP: Dr. Mackenzie Fink MD Status: REG C LI Study:Transvaginal Non- Date of Exam: 01/12/25 Exam# [id number] Ordering Dr: Imani Persaud MD PROCEDURE: TRANSVAGINAL [...] process should be ruled out. Reading Location: [id number] CC: Dr. Imani Persaud MD; Dr. 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 26, 2025 10:59am Encounter for insertion of venous access port acute March 26 1:19pm Primary leiomyosarcoma of pelvis acute March 28, 2025 3 :30pm [facility] Work Phone: 1(857) 600-774702-26-2025 Evaluation note* Diagnosis Onset Date Resolution Status Admit Date Pelvic mass inactive December 12:54pm Primary leiomyosarcoma of pelvis acute February 26, 2025 10:59am Encounter for insertion of venous access port acute March 26 1:19pm Primary leiomyosarcoma of pelvis acute March 28, 2025 3 :30pm Encounter for education acute M ay 2024 1:47pm Primary leiomyosarcoma of pelvis acute April 04, 2025 1 :47pm [facility] Work Phone: 1(893) 577-725102-26-2025 Evaluation note* Diagnosis Onset Date Resolution Status [...] pelvis acute April 19, 2025 8 :09am [employer] [employer] [facility] Work Phone: 1(198) 451-231702-26-2025 Evaluation note* Diagnosis Onset Date Resolution Status [...] of pelvis acute April 26, 2025 8:12am [facility] Work Phone: 1(217) 703-570702-26-2025 Evaluation note* Diagnosis Onset Date Resolution Status [...] 2021 resolved April 18, 2025 1 0:44am [facility] Work Phone: 1(544) 488-641802-26-2025 Evaluation note* Diagnosis Onset Date Resolution Status [...] of pelvis acute May 03, 2025 10:20am [facility] Work Phone: 1(332) 493-453902-26-2025 Evaluation note* Diagnosis Onset Date Resolution Status [...] 10:20am Severe neutropenia acute April 152024 10:20am [facility] Work Phone: 1(669) 898-451202-26-2025 Evaluation note* Diagnosis Onset Date Resolution Status [...] of pelvis acute May 10, 2025 9:09am [facility] Work Phone: 1([phone]) [phone] Telephone encounter Note* Telephone Encounter - Nayana Steele MA - 12/25/2024 2:29 PM EST Patient given results and verbalized understanding of instructions given. Nayana Steele MA [facility]02-10-2025 Miscellaneous Notes* Telephone Encounter - Nayana [...] blood in the urine. documented in this encounterAd[facility]02-[facility]25 Telephone encounter Note * Telephone Encounter - Chace Tobias PA - 12/25/2024 11:48 AM EST Please contact patient and let her know that urine culture revealed no UTI. She needs close follow-up with primary care doctor to ensure resolution of blood in the urine. [facility] Work Phone: [phone]) 132-715002-09-2025 NoteHNO ID: [id number] Author: ISAÍAS RIBEIRO APRN.WATER QUALITY TESTER Service: ? Author Type: Nurse Practitioner Type: [...] CORONARY PLAT CHROMIUM BARE METAL STENT SYS [id number], 144 CM 06/26/2014 REMOVAL GALLBLADDER 2013 SUPRACERVICAL [...] Skin: G (more content not included)...[facility]02-09-2025 History of Present illness Narrative* Isaías Ribeiro APRN.WATER QUALITY TESTER - 12/24/2024 1:53 PM EST Subjective HPI [...] lens implant PAST SURGICAL HISTORY OF 03/31/2021 hoccer stent REBEL CORONARY PLAT CHROMIUM BARE METAL STENT SYS [id number], 144 CM 06/26/2014 REMOVAL GALLBLADDER 2013 SUPRACERVICAL [...] of care. This note was generated using DIC[employer] Grid software. It may contain errors in wording, punctuation, or spelling. Isaías Ribeiro APRN.JAIRO documented in this encounterAd[facility]11-25-2024 Telephone encounter Note * Telephone Encounter - Cierra Pineda MA - 10/09/2024 3:53 PM EST Pt reviewed message from PCP regarding mammogram results. PCP sent pt message to pt on 10/03/24, was reviewed by pt same day. Cierra Pineda MA [facility]11-25-2024 Miscellaneous Notes* Telephone Encounter - Cierra Pineda MA - 10/09/2024 3:53 PM EST Pt reviewed message from PCP regarding mammogram results. PCP sent pt message to pt on 10/03/24, was reviewed by pt same day. Cierra Pineda MA * Telephone Encounter - Ann [...] continue with annual screenings. documented in this encounterAd[facility]11-19-2024 Telephone encounter Note * Telephone Encounter - Ann Zacarias RN - 10/03/2024 9:49 AM EST Called and left a voicemail for the Patient to call back and ask for a nurse to receive the providers message. Ann Zacarias RN [facility]11-19-2024 Telephone encounter Note* Telephone Encounter - Susy Smith APRN.CNP - 10/03/2024 8:15 AM EST Please let patient know her mammogram is negative. Patient should continue with annual screenings. [facility] Work Phone: [phone]) 683-133511-15-2024 History of Present illness Narrative* Gabby Elizondo Mammo Tech - 09/29/2024 1:30 PM [...] PATIENT PRESENTS WITH AN IMPLANTABLE OR ATTACHED CHIEF OF STAFF DOCTOR: No RADIOLOGY DEPARTMENT: Mammography PERIPHERAL IV DATA: Not applicable SIGNED BY: Chiqui Kilgore September 29, 2024 1:54 PM documented in this encounterAdams [facility] Hospital11-15-2024 NoteHNO ID: [id number] Author: GABBY ELIZONDO Mammo Tech Service: ? Author Type: Photograph Enlarger Type: Progress Notes Filed: 09/29/2024 13:54 Note [...] PATIENT PRESENTS WITH AN IMPLANTABLE OR ATTACHED CHIEF OF STAFF DOCTOR: No RADIOLOGY DEPARTMENT: Mammography PERIPHERAL IV DATA: Not applicable SIGNED BY: Chiqui Kilgore September 29, 2024 1:54 [facility]CThe [facility]11-2024 Telephone encounter Note* Telephone Encounter - Susy Smith APRN.CNP - 09/25/2024 2:22 PM EST Ordered [facility]11-11-2024 Miscellaneous Notes* Telephone Encounter - Susy Smith APRN.CNP - 09/25/2024 2:22 PM EST Ordered * Telephone Encounter - Gabby Elizondo Mammo Tech - 09/25/2024 1:40 PM EST Could we have a mammogram screening order STAT! Pt schedule today at 1450. Thanks a million documented in this encounterAdams [facility] Hospital11-11-2024 Telephone encounter Note * Telephone Encounter - Gabby Elizondo Mammo Tech - 09/25/2024 1:40 PM EST Could we have a mammogram screening order STAT! Pt schedule today at 1450. Thanks a million [facility]09-18-2024 Telephone encounter Note* Telephone Encounter - Hazel Marshall LPN - 08/02/2024 7:57 PM EDT Patient notified.Hazel Marshall LPN [facility]09-18-2024 Miscellaneous Notes* Telephone Encounter - Hazel Marshall LPN - 08/02/2024 7:57 PM EDT Patient notified.Hazel Marshall LPN * Telephone Encounter - Isaías Ribeiro APRN.CNP - 08/02/2024 7:51 PM EDT Please inform patient that chest x-ray is negative. Continue plan of care as discussed during visit. documented in this encounterAdams [facility] Hospital09-18-2024 Telephone encounter Note * Telephone Encounter - Isaías Ribeiro APRN.CNP - 08/02/2024 7:51 PM EDT Please inform patient that chest x-ray is negative. Continue plan of care as discussed during visit. [facility]09-18-2024 History of Present illness Narrative* Keshia [...] PATIENT PRESENTS WITH AN IMPLANTABLE OR ATTACHED CHIEF OF STAFF DOCTOR: No RADIOLOGY DEPARTMENT: General X-ray: Exam(s) Completed: Chest X-Ray PERIPHERAL IV DATA: Not applicable SIGNED BY: RT Sera(Christal) August 02, 2024 7:17 PM documented in this encounterAdams County Hospital09-18-2024 NoteHNO ID: [id number] Author: KESHIA MANRIQUEZ RT(Christal) Service: ? Author Type: Photograph Enlarger Type: Progress Notes Filed: 08/02/2024 19:17 Note [...] PATIENT PRESENTS WITH AN IMPLANTABLE OR ATTACHED CHIEF OF STAFF DOCTOR: No RADIOLOGY DEPARTMENT: General X-ray: Exam(s) Completed: Chest X-Ray PERIPHERAL IV DATA: Not applicable SIGNED BY: RT Sera(R) August 02, 2024 7:17 [facility]09-18-2024 NoteHNO ID: [id number] Author: ISAÍAS RIBEIRO APRN.WATER QUALITY TESTER Service: ? Author Type: Nurse Practitioner Type: [...] CORONARY PLAT CHROMIUM BARE METAL STENT SYS [id number], 144 CM 06/26/2014 REMOVAL GALLBLADDER 2013 SUPRACERVICAL [...] 2. Bronchi (more content not included)...[facility]09-18-2024 History of Present illness Narrative* Isaías Ribeiro APRN.[facility] - 08/02/2024 6:55 PM EDT Subjective [...] CORONARY PLAT CHROMIUM BARE METAL STENT SYS [id number], 144 CM 06/26/2014 REMOVAL GALLBLADDER 2013 SUPRACERVICAL [...] of care. This note was generated using DICOM Grid software. It may contain errors in wording, punctuation, or spelling. Isaías Ribeiro APRN.JAIRO documented in this encounterAdams County Hospital06-04-2024 NoteHNO ID: [id number] Author: JUANA LINTON APRN.JAIRO Service: ? Author Type: Nurse Practitioner Type: Progress Notes Filed: 04/18/2024 13:22 Note Text: This note was created using [employer]. Subjective Uzma Mcdonald is a 53 year [...] history is provided by the patient. No specialized language instructor was used. URI She complains of [...] lens implant PAST SURGICAL HISTORY OF 03/31/2021 BiontroniQuickPay stent REBEL CORONARY PLAT CHROMIUM BARE METAL STENT SYS [id number], 144 CM 06/26/2014 REMOVAL GALLBLADDER 2013 SUPRACERVICAL [...] problems. Objective (more content not included)...[facility]06-04-2024 History of Present illness Narrative* Juana Linton APRN.WATER QUALITY TESTER - 04/18/2024 12:20 PM EDT This note [...] history is provided by the patient. No specialized language instructor was used. URI She complains of [...] CORONARY PLAT CHROMIUM BARE METAL STENT SYS [id number], 144 CM 06/26/2014 REMOVAL GALLBLADDER 2013 SUPRACERVICAL [...] at time of exam. She declines visiting [address] for xray Will try to come [...] worsen. Juana Linton APRN.JAIRO documented in this encounterAdams [facility] Hospital05-09-2024 NoteHNO ID: [id number] Author: MILENA VAUGHAN APRN.CNP Service: ? Author Type: Nurse Practitioner [...] CORONARY PLAT CHROMIUM BARE METAL STENT SYS [id number], 144 CM 06/26/2014 REMOVAL GALLBLADDER 2013 SUPRACERVICAL [...] or rash. (more content not included)...[facility]05-09-2024 History of Present illness Narrative* Milena Vaughan APRN.[facility] - 03/23/2024 10:57 AM EDT Subjective [...] CORONARY PLAT CHROMIUM BARE METAL STENT SYS [id number], 144 CM 06/26/2014 REMOVAL GALLBLADDER 2013 SUPRACERVICAL [...] analgesia. - Discussed expected course of illness Milena Vaughan APRN.WATER QUALITY TESTER documented in this encounterCleveland [id number] Instructions* Patient Instructions* Milena Vaughan APRN.JAIRO - 03/23/2024 10:57 AM EDT ASSESSMENT/PLAN: 1. [...] analgesia. - Discussed expected course of illness Milena Vaughan APRN.WATER QUALITY TESTER ACUTE BRONCHITIS: You have acute bronchitis. This [...] days of proper treatment. documented in this encounterAdams [facility] Hospital11-06-2023 Miscellaneous Notes* Letter - Coordinator, Mammography - 09/20/2023 2:45 PM EST September 21, 2023 PID: [id number] Umza Linnesmeconnie [address] [place] [address] Dear Ms. Mcdonald, We are pleased to [...] report will be kept on file at [facility] as part of your permanent medical record and are available for your continuing care. Thank you for allowing us to help in meeting your health care needs. Sincerely, Dr. Velasquez Interpreting Radiologist [facility] (Normal over 40) documented in this encounterAdams County Hospital11-03-2023 History of Present illness Narrative* Gabby Elizondo Mammo Tech - 09/17/2023 2:30 PM [...] 17, 2023 2:33 PM documented in this encounterAdams County Hospital10-10-2023 Miscellaneous Notes* Telephone Encounter - Aye Gtz - 08/24/2023 11:50 AM EDT Informed. Aye Gtz * Telephone Encounter - Mackenzie Fink MD - 08/23/2023 5:38 PM EDT Unfortunately, I am currently closed to all new patients. * Telephone Encounter - Caitlin Dominique RN - 08/18/2023 1:58 PM EDT Patient asking if Dr. Fink would accept her 26 year old son, Sal, as a new patient? Please call pt with reply. [phone] Thank you. documented in this encounterAdams County Hospital04-17-2023 History of Present illness Narrative* Mackenzie Fink MD - 03/01/2023 2:25 PM EDT Patient presents with: Follow Up: Starting zoloft HPI: Patient presents today for office visit for follow up. PSYCH: Currently tolerating medications well: Yes . Side effects: No. 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 Mackenzie Fink MD documented in this encounterAdams County Hospital04-04-2023 History of Present illness Narrative* Hilda Morin APRN.WATER QUALITY TESTER - 02/16/2023 3:53 PM EDT Chief Complaint Patient presents with: Telemedicine I have communicated my name and active licensure. The patient's identity and physical location wereverified at the time of this visit. Either the patient or their legal dealer compliance representative has been informed of the risks [...] agrees to the visit: Yes Patient Location: [facility] Uzma Mcdonald is a 52 year old female who is contacted today for a virtual visit This is an established patient of Mackenzie Fink MD Reports: Pt presents today with [...] lens implant PAST SURGICAL HISTORY OF 03/31/2021 BiontFab'entech stent REBEL CORONARY PLAT CHROMIUM BARE METAL STENT SYS [id number], 144 CM 06/26/2014 REMOVAL GALLBLADDER 2013 SUPRACERVICAL [...] as needed for worsening/no improvement. Hilda Morin APRN.WATER QUALITY TESTER documented in this encounterAdams County Hospital03-16-2023 Miscellaneous Notes* Telephone Encounter - Mackenzie Fink MD - 01/28/2023 9:21 AM EDT Disregard. Finally read * Telephone Encounter - Mackenzie Fink MD - 01/28/2023 8:03 AM EDT Can we check with radiology why her hand xray is still pending several days after it was taken? documented in this encounterAdams County Hospital03-14-2023 History of Present illness Narrative* Mackenzie Fink MD - 01/26/2023 2:37 PM EDT [...] CORONARY PLAT CHROMIUM BARE METAL STENT SYS [id number], 144 CM 06/26/2014 REMOVAL GALLBLADDER 2013 SUPRACERVICAL [...] intact. ASSESSMENT/PLAN: 1. Coronary artery disease of [place] heart with stable angina pectoris, unspecified vessel [...] call if any side effects or questions. Mackenzie Fink documented in this encounterAdams County Hospital09-15-2022 Miscellaneous Notes* Letter - Mammography Coordinator - 07/30/2022 1:52 PM EDT July 30, 2022 PID: [id number] Uzma Mcdonald [address] [place] [address] Dear Ms. Mcdonald, We are pleased to [...] report will be kept on [facility] at [facility] as part of your permanent medical record and are available for your continuing care. Thank you for allowing us to help in meeting your health care needs. Sincerely, Dr. Santiago Interpreting Radiologist [facility] (Normal over 40) documented in this encounterAdams County Hospital09-15-2022 History of Present illness Narrative* RT Mk(R) - 07/30/2022 12:50 PM EDT Radiology Service Progress Note PATIENT NAME: Uzma cMdonald DATE OF SERVICE: July 30, 2022 TIME: [...] 30, 2022 12:36 PM documented in this encounterAdams County Hospital09-13-2022 Miscellaneous Notes* Telephone Encounter - Cierra Pineda Ma - 07/28/2022 12:43 PM EDT Pt notified of results and recommendations below from PCP. Notified that A1c order in to complete in 6 months. Pt to notify office if she has any questions. Cierra Pineda Ma * Telephone Encounter - Mackenzie Fink MD - 07/28/2022 11:55 AM EDT Sugar is borderline high. Does not need meds etc. Would just watch starches and sugars in the diet.Weight loss helps as well. Recheck a1c in six months documented in this encounterAdams County Hospital09-12-2022 History of Present illness Narrative* Mackenzie Fink MD - 07/27/2022 1:10 PM EDT Patient presents with: Establish Care HPI: Patient presents today for office visit for getting established. CARDIO: she had an TX in 2013 and stent last May in [...] CORONARY PLAT CHROMIUM BARE METAL STENT SYS [id number], 144 CM 06/26/2014 REMOVAL GALLBLADDER 2013 SUPRACERVICAL [...] refill. ASSESSMENT/PLAN: 1. Coronary artery disease of [place] heart with stable angina pectoris, unspecified vessel [...] HEAD/NECK SOFT TISSUE OTHER Call if changes. Mackenzie Fink RTO in six months documented in this encounterAdams County Hospital08-11-2022 Miscellaneous Notes* Telephone Encounter - Radha [...] either way. Freda Hermosillo documented in this encounterAdams County Hospital08-02-2022 Miscellaneous Notes* Telephone Encounter - Tonie Cortez RN - 06/16/2022 8:29 AM EDT Patient had supracervical hysterectomy with bilateral salpingectomy and right oophorectomy and cystoscopy on 05/28/22. Tonie Cortez RN documented in this encounterAdams County Hospital2022 History of Present illness Narrative* Kyleigh Saucedo MD - 06/08/2022 2:00 PM EDT DATE OF SERVICE: 06/08/2022 PROBLEM: Uzma Mcdonald presents for postop visit. SURGERY & DATE: 05/28/22 supracervical abd. hyst w/ RSO and left salpingectomy and cysto at [facility] for fibroids, bleeding PATHOLOGY: pending SUBJECTIVE/INTERVAL HISTORY: Uzma Mcdonald reports that she feels well. No fever or chills. No shortness of breath, cough, or chest pain. Incision is not painful, some pruritis. Minimal SS drainage from mid portion. No vaginal bleeding. Less heartburn and ANA since uterus removed. Patient reports that her appetite is good. OBJECTIVE: VABDOMEN: Abdomen soft, non-tender, no hepatosplenomegaly. [place] removed with staple removal without complication. Incision is intact with small amount of scabbing and normal healing induration. ASSESSMENT: postop visit, staple removal PLAN: 1. Discussed surgery and recovery and restrictions, pathology pending 2. Postop restrictions reviewed. Kyleigh Saucedo MD documented in this encounterAdams County Hospital2022 History of Present illness Narrative* Kyleigh Saucedo MD - 06/08/2022 1:22 PM EDT Patient underwent supracervical hysterectomy with bilateral salpingectomy and right oophorectomy and cystoscopy at [facility] on 05/28/2022. The uterus was [...] removal. Kyleigh Saucedo MD documented in this encounterAdams County Hospital07-22-2022 Miscellaneous Notes* Telephone Encounter - Marci Olsen LPN - 06/05/2022 1:08 PM EDT Patient notified * Telephone Encounter - Margy Brown MD - 06/05/2022 12:05 PM EDT Discussed with CLAY DRY PRESS MIXER OPERATOR I think OK to monitor over the [...] have kenyon removed 06/10/2022 documented in this encounterAdams County Hospital07-05-2022 History and physical note * Kyleigh [...] CORONARY PLAT CHROMIUM BARE METAL STENT SYS [id number], 144 CM 06/26/2014 REMOVAL GALLBLADDER 2012 Current [...] allergies Kyleigh Saucedo M.D. documented in this encounterAdams County Hospital06-20-2022 Miscellaneous Notes* Telephone Encounter - Margy Brown MD - 05/04/2022 4:10 PM EDT filed * Telephone Encounter - Aye Castro RN - 05/04/2022 3:36 PM EDT Refill request received via [employer]. Patient is scheduled for surgery with Dr. Saucedo on 05/28/22. Aye Castro RN documented in this encounterAdams County Hospital06-09-2022 Instructions* Patient Instructions* Juana Linton APRN.CNP [...] spread by coughs, sneezes, anddirect contact, especially [id number]. A respiratory tract infection usually clears up [...] 102 F (39 C). documented in this encounterAd[facility]06[facility] History of Present illness Narrative* Juana Linton APRN.[facility] - 04/23/2022 11:05 AM EDT This note was created using The [employer] Project[employer]. Subjective Uzma Mcdonald is a 51 year old female. 51 year old female with PMH of Two cardiac stents, HTN, and TX in 2013 presents with complaints of illness. 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 Denies CP. Denies hemoptysis. Utilized some claritin a couple of times. 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 +tobacco usage. Denies that her usage is affected by her illness, States she is currently trying tocut back/quit. The history is provided by the patient. No specialized language instructor was used. Cough This is a [...] CORONARY PLAT CHROMIUM BARE METAL STENT SYS [id number], 144 CM 06/26/2014 REMOVAL GALLBLADDER 2013 ALLERGIES [...] content normal. Judgment: Judgment normal. Shena Paredes LEAD SOFTWARE TEST ENGINEER Student ASSESSMENT/PLAN: 1. Cough - ICD9: 786.2, [...] symptoms - Declines COVID testing. Juana Linton APRN.WATER QUALITY TESTER TEACHING PROVIDER (Physician/PA/LEAD SOFTWARE TEST ENGINEER) NOTE OF PERSONAL INVOLVEMENT IN CARE: I have personally seen and examined the patient and performed the medical decision-making components. I have reviewed the Advanced Practice Registered Nurse (LEAD SOFTWARE TEST ENGINEER) Student's documentation and verified the findings in the note as written. Any additions or changes are noted in bold/italics. Signature: Juana Linton Date: 04/23/2022 Time: 11:55 AM documented in this encounterAd[facility]06-09-2022 History of Present illness Narrative* Yolette Gramajo, RT(R) - 04/23/2022 11:00 AM EDT Radiology [...] 23, 2022 11:00 AM documented in this encounterAdams [facility] Hospital05-12-2022 Miscellaneous Notes* Telephone Encounter - Aye Castro RN - 03/26/2022 12:42 PM EDT Patient called back and notified of below. Patient would like to proceed with surgery on 05/28 at [facility]. Aye Castro RN * Telephone Encounter - Marci Olsen LPN - 03/26/2022 12:31 PM EDT Left message to call office. Available date in May for surgery is 05/28/2022 at [facility]. Will schedule pre-op once patient has new insurance in April documented in this encounterAd[facility]05-05-2022 History of Present illness Narrative* Kyleigh [...] L4 SAB0 IAB0 Ectopic0 Multiple0 Live Births0 Clinical Cytogenetics Director History LMP: 05/20/2021, Having periods Age at Menarche: Age at First : Age at Menopause: Clinical Cytogenetics Director History Comments: Sexual Activity: Not Currently; Male Contraception: Tubal Ligation No past medical history on file. PAST SURGICAL HISTORY Procedure Laterality Date DILATION & CURETTAGE 1996 LIGATE FALLOPIAN TUBE 1996 PAST SURGICAL HISTORY OF Right 04/19/2020 intraocular lens implant PAST SURGICAL HISTORY OF 03/31/2021 Biontronik stent REBEL CORONARY PLAT CHROMIUM BARE METAL STENT SYS [id number], 144 CM 06/26/2014 REMOVAL GALLBLADDER 2013 FAMILY [...] Making Kyleigh Saucedo MD documented in this encounterAd[facility] Hospital04-15-2022 Miscellaneous Notes* Telephone Encounter - Margy Brown MD - 02/27/2022 12:16 PM EDT Will file but please schedule her for follow up visit with RR thanks * Telephone Encounter - Kristen Duran LPN - 02/27/2022 11:03 AM EDT See pt's mychart refill request and advise. Kristen Duran LPN documented in this encounterAdams [facility] Hospital04-15-2022 Miscellaneous Notes* Telephone Encounter - Kristen [...] Multiple refills since then documented in this encounterAd[facility]11-08-2021 Miscellaneous Notes* Telephone Encounter - Tonie [...] this large she will likely need MRI ([facility], fibroid protocol), EMB and we will need to coordinate with her patent attorney about care. Can see DM tomorrow, use both 820 and 840 slots or can use KJ afternoon slots [phone] and 340 slots to give enough time. Thanks. Kyleigh Saucedo MD documented in this encounterAdams [facility] Hospital05-17-2021 Evaluation note* Diagnosis Onset Date Resolution Status High cholesterol acute Essential (primary) hypertension chronic History of coronary artery stent placement March 31 021 resolved [facility] Work Phone: Consult note Author Ck Cotto [facility] Note Date/Time April 02, 2025 1:54p [facility] Medical Records Department [address] [place] [address] Anesthesia Postop Eval II 04/02/25 1305 MR#: [id number] Acct: [id number] Name: UZMA MCDONALD Rep #:[id number] 6 : 1970 54 From: Ck Cotto MD PCP: Dr. Mackenzie Fink MD Status:REG S DC Y Race: C [id number] Anesthesia Postop Eval I Sum Postop Eval Completion status Anesthesia document: Postop Eval 1 completed: Yes Anesthesia Postop Eval I Summary Anesthesia Postop Eval I Summary: Anesthesia Postop Eval I: Assessment Summary Airway patent Yes 04/02/25 12:06 PSYCHOTHERAPIST COUNSELOR.HBARR Spontaneous unlabored Yes 04/02/25 12:06 PSYCHOTHERAPIST COUNSELOR.HBARR respirations Mental status Awake 04/02/25 12:06 PSYCHOTHERAPIST COUNSELOR.HBARR nausea No 04/02/25 12:06 PSYCHOTHERAPIST COUNSELOR.HBARR Vomiting No 04/02/25 12:06 PSYCHOTHERAPIST COUNSELOR.HBARR Anesthesia Postop Eval I: Fluid Summary Crystalloid volume administer 500 04/02/25 12:06 PSYCHOTHERAPIST COUNSELOR.HBARR (ml) Colloids volume administered ( ml) Blood Product volume administered (ml) Total IV fluid infused 500 04/02/25 12:06 PSYCHOTHERAPIST COUNSELOR.HBARR Anesthesia Postop Eval I: Summary Notes Anesthesia Complication No 04/02/25 12:06 PSYCHOTHERAPIST COUNSELOR.HBARR Anesthesia Complication Comment: Post-operative progress note Anesthesia: Postop Eval II Evaluation Mental status: Awake Pain Level: 0 nausea: No Vomiting: No 04/02/25 1305 <Electronically signed by Ck Cotto MD > Date _ Ck Cotto MD Cosigner Signature: Date CC: ~ Signed [facility] Work Phone: Consult note Author Sade Bah [facility] Note Date/Time July 18, 2025 3:13pm [facility] Medical Records Department [address] [place] [address] Counseling Note - Pharmacy 07/18/25 1509 MR#: [id number] Acct: [id number] Name: UZMA MCDONALD Rep #:[id number] 0 : 1970 54 From: Sade Bah PCP: Dr. Mackenzie Fink MD Status:ADM I N Y Location: [place] [address] Pharmacy [facility] has performed discharge medication reconciliation and counseling for this patient. Counseled on via telephone due to contact precautions. 1. CEFDINIR 300MG PO BID X 5 DAYS The patient's discharge medication list was reviewed for discrepancies and discrepancies were resolved. The patient was counseled on the following discharge medications and changes in medications for homegoing were reviewed. The Reason for Use, instructions for use, and potential side effects were reviewed for all new medications. The patient's questions regarding all of their medications were answered. The patient was able to verbally demonstrate an understanding of their dischargemedications. Medications at Discharge Home Medications aspirin 81 mg chewable tablet 81 mg PO DAILY@0800 hx of mi 06/09/19 atorvastatin 80 mg tablet 80 mg PO QHS cholesterol #90 tabs 11/29/23 cefdinir 300 mg capsule 300 mg PO BID #10 caps 07/18/25 07/18/25 6377 <Electronically signed by Sade Bah> Date _ Sade Bah Cosigner Signature (if applicable): Date CC: ~ Signed [facility] Work Phone: Discharwz summary Author Theo Richard [facility] Note Date/Time April 02, 2025 12:19 pm [facility] Medical Records Department [address] [place] [address] Instructions for Home/Discharge Instructions 04/02/25 1218 MR#: [id number] Acct: [id number] Name: UZMA MCDONALD #:[id number] 5 : 1970 54 From: Theo villegas MD PCP: Dr. Mackenzie Fink MD Status:REG S DC Discharge Instructions [...] to schedule 2 week follow up appointment. [phone] Test Results: Test results from this visit will be discussed in further detail at your follow- up appointment, if applicable. Discharge Plan Admission Attending Provider: Theo Richard Primary Care Provider: Mackenzie Fink Instructions Print Language: Polish Discharge Orders/Prescriptions Prescriptions: No Action sertraline [Zoloft] 50 mg tablet 50 mg PO QHS famotidine [Pepcid] 20 mg tablet 20 mg PO BID atorvastatin 80 mg tablet 80 mg PO QHS Qty: 90 3RF aspirin 81 MG tablet,chewable 81 mg PO DAILY@0800 Referrals / Follow Up: Mackenzie Fink MD [Primary Care Provider] - Disposition Disposition (needs filled in before D/C Order can be placed): Home, Self Care 04/02/25 1219<Electronically signed by Theo Richard MD>Theo Richard MD CC: Dr. Mackenzie Fink MD ~ Signed [facility] Work Phone: Discharge summary Author Kelli Sung [facility] Note Date/Time July 18, 2025 3:29pm [facility] Medical Records Department [address] [place] [address] Instructions for Home/Discharge Instructions 07/18/25 1348 MR#: [id number] Acct: [id number] Name: UZMA MCDONALD Rep #:[id number] 3 : 1970 54 From: Kelli Sung MD PCP: Dr. Mackenzie Fink MD Status:ADM I N Discharge Instructions DC O2, CPAP, BIPAP needs Home O2 Discharge instructions: No Dressing / Incision Discharge Activity: Return to Normal Activity Weight Bearing Status: Weight bearing as tolerated Dressing / Incision Call your doctor if you observe: Fever of 101 or Higher, Shortness of breath, Dizziness, Swelling in the ankles and Chest pain Follow Up Care Test Results: Test results from this visit will be discussed in further detail at your follow- up appointment, if applicable. Discharge Plan Admission Admit Date/Time: 07/16/25 13:46 Primary Reason for Your Visit: UTI Attending Provider: Kelli Sung Primary Care Provider: Mackenzie Fink Consulting Providers: Barbie Cross Instructions Patient Instructions: ED Cystitis Female Adult Discharge Orders/Prescriptions Prescriptions: New cefdinir 300 mg capsule 300 mg PO BID Qty: 10 0RF Continued atorvastatin 80 mg tablet 80 mg PO QHS Qty: 90 3RF aspirin 81 MG tablet,chewable 81 mg PO DAILY@0800 Referrals / Follow Up: Imani Persaud MD [Med Staff - Active Staff] - Within 1 Week Mackenzie Fink MD [Primary Care Provider] - Within 1 Week Disposition Disposition (needs filled in before D/C Order can be placed): Home, Self Care 07/18/251347<Electronically signed by Kelli Sung MD>Kelli Sung MD CC: Dr. Barbie Cross MD; Dr. Mackenzie Fink MD ~ Signed [facility] Work Phone: Evaluation note* Diagnosis Menorrhagia with irregular cycle- Primary Excessive or frequent menstruation Uterine leiomyoma, unspecified location Iron deficiency anemia due to chronic blood loss Iron deficiency anemia secondary to blood loss (chronic) documented [facility] encounter [facility]* Diagnosis Cough- Primary URI, acute Acute upper respiratory infections of unspecified site [facility] Diagnosis Menorrhagia with irregular cycle- Primary Excessive or frequent menstruation Uterine leiomyoma, unspecified location Iron deficiency anemia due to chronic blood loss Iron deficiency anemia secondary to blood loss (chronic) documented [facility] noteNo assessment information availableWMercy [facility] Work Phone: evaluation note* Diagnosis Onset Date Resolution Status Menorrhagia acute Uterine fibroid acute Anemia due to chronic blood loss [facility] Work Phone: evaluation note* Diagnosis Uterine leiomyoma, unspecified location- Primary Iron deficiency anemia due to chronic blood loss Iron deficiency anemia secondary to blood loss (chronic) Menorrhagia with regular cycle Excessive or frequent menstruation [facility]* Diagnosis Postop check- Primary Follow-up examination, following unspecified surgery documented [facility] this encounter [facility]* Diagnosis Coronary artery disease of [place] heart with stable angina pectoris, unspecified vessel or lesion type (HCC)- Primary Blood in stool Hyperglycemia Other abnormal glucose Tobacco use Tobacco use disorder Hyperlipidemia, mixed Mixed hyperlipidemia Neck mass Swelling, mass, or lump in head and neck [facility]* Diagnosis Hyperglycemia- Primary Other abnormal glucose [facility]* Diagnosis Obesity, Class I, BMI 30-34.9 Obesity, unspecified documented [facility]* Diagnosis Coronary artery disease of [place] heart with stable angina pectoris, unspecified vessel [...] disorder with anxiety [facility]* Diagnosis COVID-19- Primary documented [facility] this encounter [facility]* Diagnosis GERD without esophagitis- Primary Esophageal reflux Adjustment disorder with other symptom documented in this encounter [facility] note* Diagnosis Encounter for screening mammogram for malignant neoplasm of breast Other screening mammogram documented in this encounter [facility] note* Diagnosis Acute cough- Primary Viral URI Acute upper respiratory infections of unspecified site Viral bronchitis Acute bronchitis Eye redness Redness or discharge of eye documented in this encounter [facility] note* Diagnosis Acute cough- Primary Rhinosinusitis Unspecified sinusitis (chronic) documented in this encounter [facility] note* Diagnosis Acute cough- Primary Bronchitis Bronchitis, not specified as acute or chronic Acute cough documented in this encounter [facility] note* Diagnosis Acute cough documented in this encounter [facility] note* Diagnosis Trigger little finger of right hand Trigger finger (acquired) Right elbow pain Pain in joint, upper arm documented in this encounter [facility] note* Diagnosis Cough documented in this encounter [facility] note* Diagnosis Encounter for screening mammogram for breast cancer- Primary documented in this encounter [facility] note* Diagnosis Encounter for screening mammogram for malignant neoplasm of breast- Primary Other screening mammogram documented in this encounter [facility] note* Diagnosis Encounter for screening mammogram for breast cancer documented in this encounter [facility] note* Diagnosis Burning with urination- Primary Dysuria documented in this encounter [facility] note* Diagnosis Pelvic mass- Primary Abdominal or pelvic swelling, mass or lump, unspecified site documented in this encounter [facility] note* Diagnosis Pelvic mass in female- Primary documented in this encounter [facility] note* Diagnosis Pelvic mass- Primary Abdominal or pelvic swelling, mass or lump, unspecified site Pelvic mass Abdominal or pelvic swelling, mass or lump, unspecified site Intra-abdominal and pelvic swelling, mass and lump, unspecified site documented in this encounter [facility] note* Diagnosis Pelvic mass in female- Primary Postoperative follow-up Follow-up examination, following unspecified surgery Yeast infection of the skin Candidiasis of skin and nails documented in this encounter [facility] note* 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, site unspecified 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 Author Barbie Cross [facility] Note Date/Time July 16, 2025 1:58pm [facility] Medical Records Department [address] [place] [address] H&P Exam - Hospitalist 07/16/25 1346 MR#: [id number] Acct: [id number] Name: UZMA MCDONALD Rep #:[id number] 1 : 1970 54 From: Barbie Cross MD PCP: Dr. 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 Persaud presented to [facility] ED 07/16/2025 due to generalized weakness. In the ED temp 102.3, heart rate 107 and blood pressure 104/68, respiratory rate 18 pulse ox 100% on room air. CBC with a white blood cell count 8.8, hemoglobin 10.6, platelet count 121 and left shift noted, CK 59, CMP did show sodium of 128 down from 136 several days ago, bicarb of 18.2 with a gap of 9, BUN 13 creatinine 0.63, Trope found to be 21 with a repeat of 20 and a proBNP of 4600 but chest x-ray with no acute process. UA suspicious for UTI. Patient given IV antibioticsand due to her weakness and urinary tract infection hospitalist contacted for admission. Patient evaluated at bedside with present. Reportedly patient has had some nausea since her chemotherapy and some urinary incontinenceboth of which are typical after her chemo however yesterday she had a little bitof a headache and just felt very tired so she went to bed, went to the bathroom at 2 AM and was unable to get off the toilet, she crawled into her room and slept on the floor, reports she has had a runny nose and a little bit of a wet cough since then she thinks this is because there was a lot of dust and that it is allergy nature. Denies abdominal pain, denies diarrhea, did not know she hada fever at home. Denies any chest pain or shortness of breath. Denies any swelling. Does report she gets a little lightheaded when she sits up, did not really eat yesterday but has been trying to keep up on her fluids. [facility] Medical History Iron deficiency anemia [...] QHS cholesterol #90 tabs 11/29/23 Unknown Rx Allergy/AdvReac Type Severity Reaction Status Date / Time No Known Allergies Allergy Verified 07/16/25 09:19 Family History Father Kidney disease Aunt Cancer [...] Number of servings: 2 ROS ROS Narrative General: Did not note a fever at home but was febrile in the ED HENT: Little bit of a stuffy nose, headache yesterday, denies sore throat EYES: Denies changes in vision Resp: Chronic cough but since yesterday has been a little bit of a wet cough, denies shortness of breath Cardiac: Denies chest pain GI: Denies abdominal pain, denies changes in bowel, little bit nauseous since chemo : Urinary incontinence after chemo which happens every time per patient Extremity: Denies swelling MSK: Generalized weakness with no focal weakness Neuro: Chronic problems with neuropathy Heme: Denies any bleeding or bruising Skin: Denies rashes Psychiatric: No complaints voiced Vital Signs Vital Signs Vital Signs: 07/16/25 09:19 07/16/25 09:21 07/16/25 09:22 Temperature 102.3 F H 100.7 F H Temperature Source Oral Oral Pulse Rate 107 H 103 H Respiratory Rate 18 24 H Respiratory Effort Normal Non-Labored Respiratory Pattern Normal Blood Pressure 104/68 102/55 L Blood Pressure Mean 80 70 Pulse Ox 100 100 Oxygen Delivery Method Room Air Room Air 07/16/25 09:23 07/16/25 10:34 07/16/25 11:00 Temperature 100.9 F H 100.7 F H Temperature Source Oral Oral Pulse Rate 109 H 108 H Respiratory Rate 20 H 16 Respiratory Effort Normal Non-Labored Respiratory Pattern Blood Pressure 102/68 97/64 Blood Pressure Mean 79 75 Pulse Ox 98 98 Oxygen Delivery Method Room Air Room Air 07/16/25 12:00 07/16/25 13:00 07/16/25 13:19 Temperature 100.3 F H 99.8 F H 99.2 F H Temperature Source Oral Oral Pulse Rate 100 99 99 Respiratory Rate 19 H 22 H 16 Respiratory Effort Respiratory Pattern Blood Pressure 117/69 115/67 98/66 Blood Pressure Mean 85 83 76 Pulse Ox 100 93 97 Oxygen Delivery Method Room Air Room Air Weight Weight: 100.2 kg Body Mass Index (BMI) 34.6 Physical Exam Narrative General: Alert, oriented HEENT: Atraumatic, normocephalic Eyes: Anicteric, normal conjunctiva, extraocular movements grossly intact Neck: Supple Respiratory: Some transmitted upper airway sounds, normal respiratory effort Cardiovascular: Regular rate and rhythm GI: Soft, no rebound, guarding, rigidity, nondistended Extremities: No edema Musculoskeletal: Moving all extremities Neuro: No overt focal neurological deficits Skin: No rashes appreciated Psych: Cooperative Results Lab / Micro Data 07/16/25 10:30 07/16/25 10:30 Labs: Laboratory Results - last 24 hr 07/16/25 10:30: WBC 8.8, RBC 3.28 L, Hgb 10.6 L, Hct 32.0 L, MCV 97.6, MCH 32.3 H, MCHC 33.1, RDW Std Deviation 58.3 H, RDW Coeff of Estella 16.1 H, Plt Count 121 L, MPV 10.9, Neut % (Auto) Not Reportable, Absolute Neuts (auto) 8.6 H, Absolute Lymphs (auto) 0.08 L, Total Counted 100, Neutrophils % (Manual) 97 H, Band Neutrophils % 1, Lymphocytes % (Manual) 1 L, Basophils % (Manual) 1, Diff Path Review March, Platelet Estimate MOD, RBC Morphology NORM C+C, PT 17.1 H, INR 1.4, APTT 38.2 H, Sodium 128 L, Potassium 4.1, Chloride 101, Carbon Dioxide 18.2L, Anion Gap 9, BUN 13, Creatinine 0.63 L, Estim Creat Clear Calc 124.15, Est GFR (MDRD) Non-Af 105, BUN/Creatinine Ratio 20.1 H, Glucose 105 H, Lactic Acid 1.5, Calcium 8.1, Magnesium 1.8, Total Bilirubin 1.61 H, AST 23, ALT 15, Alkaline Phosphatase 64, Total Creatine Kinase 59, Troponin T High Sens 21 H, NTpro BNP II 4642 H, Total Protein 5.7 L, Albumin 2.9 L, Globulin 2.8, Albumin/Globulin Ratio 1.0 07/16/25 11:05: Urine Color Yellow, Urine Clarity Cloudy, Urine pH 6.0, Ur Specific South Range 1.015, Urine Protein 100 H, Urine Glucose (UA) Normal, Urine Ketones 15 H, Urine Occult Blood 250 H, Urine Nitrite Negative, Urine Bilirubin 1 H, Urine Urobilinogen 4 H, Ur Leukocyte Esterase 500 H, Urine RBC 25-50 SEEN, Urine WBC 10-25 SEEN, Ur Squamous Epith Cells 0-5 SEEN, Urine Bacteria 2+, UrineMucus 0 SEEN 07/16/25 12:20: Troponin T Hi Sens 2 Hr 20 H Micro: Microbiology 07/16/25 10:55 Mucosa - Nose SARS-CoV-2, Influenza & RSV (PCR) - Final Imaging Radiology Impression Chest X-Ray 07/16/25 10:00 IMPRESSION: No acute cardiopulmonary process. Reading Location: [id number] Assessment & Plan Assessment/Plan (1) UTI (urinary tract infection): PLAN: Plan #Generalized weakness suspect 2/2 UTI - UA suspicious for UTI and patient febrile -White blood cell count within normal limits but does have left shift -Treat with empiric antibiotics while awaiting culture and sensitivity data -PT/OT -Blood pressure has been variable in the ED but blood pressure cuff is on her forearm due to location of IVs so do not necessarily suspect that this is reliable - She did receive fluids in the ED #Hyponatremia - Patient does have elevated proBNP at 4600 but does not appear overloaded -Will check serum osmole's and urine studies -Trend BMP - Will check TSH - Will check echo # Increased cough - Patient reports after laying on the ground overnight next to the dust she has had a little bit of a wet cough and a runny nose which she thinks are likely allergies - COVID/flu/RSV negative - Will check respiratory panel - Schedule cetirizine - Chest x-ray read as no acute process - No wheezes or shortness of breath - On auscultation sounds as though there are some transmitted upper airway sounds as if patient coughs or moves lung sounds improve # 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 # Elevated pro BNP -Unclear significance, suspect patient's weakness is due to her urinary tract infection, does not clinically appear overloaded -Will check echocardiogram -Will hold off on empiric IV Lasix #Tobacco use -Advise cessation -Nicotine replacement available if desired # History of coronary artery disease with stenting -Patient with stenting in 2020 -Has not been compliant with aspirin or statin for the past 6 months -Suspect patient would benefit of resuming these on discharge #DVT ppx: Lovenox subcu Barbie Cross MD Charges/Coding Visit Charges Inpatient E&M: 43252 Init Hosp L2 07/16/25 1358 <Electronically signed by Barbie Cross MD> Cosigner Signature (if applicable): CC: Dr. Barbie Cross MD; Dr. Mackenzie Fink MD~ Signed [facility] Work Phone: Hospital Discharge instructionsAmbulatory Orders* Prior Authorization Referral - ONC/HEM Location: None Selected * Urology Location: None Selected [facility] Work Phone: Hospital Discharge instructions Additional Instructions The ER physician and oncologist are recommending you be admitted for neutropenic fever for IV antibiotics. You are leaving AGAINST MEDICAL ADVICE. Risks are that you could get significantly more ill and become septic, develop damage to your organs, permanent disability, or . Please follow-up closely with your oncologist. Return anytime for admission or worsening symptoms.[facility] Work Phone: Progress note Author Imani Persaud [facility] Note Date/Time April 19, 2025 9:41a m [facility] [address] [address] OFFICE VISIT Date of Service: 04/19/25905 MR#: [id number] Acct: [id number] Name: UZMA MCDONALD YURIDIA Rep #: [id number] : 1970 From: Imani fair MD Age/Sex: 54/F [place] [facility] Status: Signed HPI Subjective Date of Service 04/19/25 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 The patient was seen in [facility] emergency room January 08, 2025 with [...] activity and tumor cell necrosis. IHC at [facility] positive for SMA, negative for desmin, STAT6, pancytokeratin, S100 and CD34. Additional IHC done at [facility] showed negative Desmin, negative Caldesmon, ER [...] omentectomy. * Docetaxel gemcitabine April 19, 2025 [facility] Medical History Encounter for education [...] no focal motor deficits Coordination / Balance: pnyasc-cq-irse test normal Speech: speech normal Gait (Neuro): [...] showed no malignant cells. Was seen at [facility] clinic by Dr. Cunningham in [...] discussed with patient . Imani Persaud MD Cream Tester, [facility] Divisions of Medical Oncology & Hematology Department of Internal Medicine [place] [address] This note was generated using a voice [...] CC: ~ [facility] Work Phone: Progress note Author Delmis Corral [facility] Note Date/Time August 09, 2025 12:12pm [facility] [place] [address] OFFICE VISIT Date of Service: 08/09/25 1104 MR#: [id number] Acct: [id number] Name: UZMA MCDONALD Rep #: [id number] : 1970 From: Delmis oRberts CORE MANAGER CORE MANAGER-C Age/Sex: 55/F Location: [facility] Status: Signed HPI Subjective Date of Service 08/09/25 Chief Complaint Sarcoma of pelvis on treatment History of Present Illness 55-year-old female past medical history notable for status post , supracervical abdominal hysterectomy, bilateral salpingectomy and right oophorectomy for multiple uterine fibroids and excessive menstrual bleeding causing iron deficiency anemia and May 2022. The patient was seen in [facility] emergency room January 08, 2025 with [...] activity and tumor cell necrosis. IHC at [facility] positive for SMA, negative for desmin, STAT6, pancytokeratin, S100 and CD34. Additional IHC done at [facility] showed negative Desmin, negative Caldesmon, ER [...] of pelvic mass, omentectomy. * Docetaxel gemcitabine April?July: Received 4 out of planned 6 cycles then stopped due to toxicity and intolerance to side effects. Interval History The patient is presenting to clinic for an education visit to discuss letrozole/pazopanib. Concerns today include BLE edema. Was problematic 2 weeks ago. States My calffelt like concrete but resolved. She notes a reoccurrence of BLE edema x 2 days. L>R. Denies headache, dizziness, CP, palpitations, SOB. BLE weakness continues, declined PT. Is back to work, 6 hours/shift. Neuropathy involving fingertips/tips of toes. Does not interfere with instrumental ADLs. [facility] Medical History Iron deficiency anemia [...] Number of servings: 2 ROS ROS Narrative Negative except as documented in the interval HPI Intake Vital Signs 07/19/25 12:59 08/09/25 11:06 Height 5 ft 7 in 5 ft 7 in Weight: 206 lb 2 oz BMI 32.3 BP 94/54 L 111/75 Blood Pressure Location Lt brachial Lt brachial Position Sitting Sitting Respiration 18 18 Pulse 73 78 Pulse Source Monitor Monitor Temp 97.2 F L 98.2 F Temperature Source Temporal Artery Temporal Artery Pulse Oximetry (%) 97 98 Oxygen Delivery Method room air room air Intake Is patient in pain?: Yes (legs ) Allergies No Known Allergies Allergy (Verified 08/09/25 11:10) Medications ?Medication ?Instructions ?Recorded ?Confirmed ?Type aspirin 81 mg chewable tablet 81 mg PO DAILY@0800 hx o f mi 06/09/19 08/09/25 History atorvastatin 80 mg tablet 80 mg PO QHS cholesterol #90 tabs 11/29/23 08/09/25 Rx Central Venous Access Central Venous Access: Yes Port/PICC: Port Exam Physical Exam Narrative ECOG 0-1 Const alert, oriented x3 and no apparent distress HEENT normocephalic Face and Sinus: normal facial exam Mouth: oral and palatal mucosa normal Eyes General Eye: normal appearance of both eyes Neck no lymphadenopathy and no JVD Lymph Lymphatic: no lymphadenopathy noted Chest Chest: vascular access Resp Auscultation: diminished lung sounds bilateral and diffuse; Negative for wheezes Cardio regular rate and regular rhythm Jugular Venous Distention: Negative for JVD GI soft to palpation, non-tender and non-distended; Negative for hepatosplenomegaly Extremity General Extremity: edema bilateral lower extremity Details: mild Skin Skin Narrative: Special attention paid to the skin of the hands and feet with only mild erythemasurrounding thumbs, No cellulitis or open wounds Psych mental status grossly normal Coding Level of Care Code Off vis,est,level 5 Exam Problem Focused Diagnoses 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 Was seen at [facility] clinic by Dr. Cunningham in March 2025 who recommended standard adjuvant chemotherapy with gemcitabine Taxotere for 6 cycles followed by maintenance pazopanib plus letrozole indefinite/till progression. Started adjuvant gemcitabine and Taxotere April 19, 2025. She received 4 out of 6planned cycles then unable to complete the course due to toxicities including fatigue, cytopenias, hand-foot syndrome, musculoskeletal aches and pains and a decline in performance status. Of note her CA125 was not elevated. Chronic comorbid conditions: Obesity, dyslipidemia, coronary artery disease, hypertension and active smoker. Plan: Based on NCCN guideline and consultation with Drs. Grady and Octavio: 1-start adjuvant letrozole (2.5 mg daily) and pazopanib (will start at 400 mg daily gradually increasing dose as tolerated up to 800 mg standard dose) The patient has been thoroughly educated to risks/benefits associated with letrozole and pazopanib. Specifically, she has been educated to potential side effects, recommendations for symptom management, and circumstances in which she should contact provider immediately, such as the development of any signs/symptoms of infection inclusive of temperature > 100.4. Encouraged to go directly to ED should fever occur outside normal clinic hours.She has been provided written educational information. A significant amount of time was allotted for questions. All the patient's concerns were addressed to her satisfaction and she is agreeable to proceed. Tentatively, she will commence with cycle 1 on . 2. Restaging with CT scan of the chest abdomen and pelvis later this afternoon. 3. BLE edema- request venous doppler now. RTO on 08/16/25 as previously planned to review CTs with Dr. Persaud I spent 50 minutes today reviewing labs, records and history. Time includes coordination of care and patient education, as well as documenting clinical information. 08/09/25 1212 <Electronically signed by Delmis king NP CORE MANAGER-C> Date _ Delmis MirandaShayna CORE MANAGER CORE MANAGER-C Cosigner Signature: Date (if applicable) CC: Dr. Mackenzie Fink MD ~ [facility] Work Phone: Progress note Author Imani Persaud [facility] Note Date/Time August 16, 2025 4: 11pm [facility] [address] [place] [address]. [place] [address] OFFICE VISIT Date of Service: 08/16/25 1522 MR#: [id number] Acct: [id number] Name: KRISTINA MCDONALDTIMOTEO NEGRETE Rep #: [id number] : 1970 From: Imani fiar MD Age/Sex: 55/F Location: [facility] Status: Signed HPI Subjective Date of Service 08/16/25 Chief Complaint Sarcoma of pelvis on treatment History of Present Illness 55-year-old female past medical history notable for status post , supracervical abdominal hysterectomy, bilateral salpingectomy and right oophorectomy for multiple uterine fibroids and excessive menstrual bleeding causing iron deficiency anemia and May 2022. The patient was seen in [facility] emergency room January 08, 2025 with [...] activity and tumor cell necrosis. IHC at [facility] positive for SMA, negative for desmin, STAT6, pancytokeratin, S100 and CD34. Additional IHC done at [facility] showed negative Desmin, negative Caldesmon, ER [...] mm left UVJ/posterior urinary bladder wall calculus. August 09, 2025 CT chest abdomen and pelvis: IMPRESSION: There is a 1.5 cm stone in the left renal pelvis causing dilatation of the left renal pelvis and of the left renal calices, there is associated induration of the perinephric fat in the left kidney Bilateral nonobstructing nephrolithiasis No free intraperitoneal fluid, air, or suspicious adenopathy, normal appendix visualized No acute pulmonary process, no suspicious noncalcified mass or nodule No suspicious thoracic adenopathy Small hiatal hernia Degenerative bony changes Treatment summary and response: * January 26, 2025 patient underwent exploratory laparotomy, left oophorectomy, removal of pelvic mass, omentectomy. * Docetaxel gemcitabine April?July: Received 4 out of planned 6 cycles then stopped due to toxicity and intolerance to side effects. * Femara start August 2025. * Pazopanib to start September 2025 at 400 mg with dose escalation every 2 weeks x 200 Mg to target 800 mg if tolerated. [facility] Medical History At high risk for deep venous thrombosis Bilateral lower extremity edema Iron deficiency anemia Constipation Transaminitis Palmar plantar [...] no addt'l complaints, except as documented and anorexia; Denies fatigue, fever(s), night sweats or weight loss Eyes [...] as documented; Denies change in bowel habits, hematochezia, melena or nausea Genitourinary Genitourinary: Reports systems reviewed and no addt'l complaints, except as documented, as per HPI and other Details: Occasional incontinence on straining or getting up ; Denies dysuria or hematuria Musculoskeletal Musculoskeletal: Reports systems reviewed and no addt'l complaints, except as documented and arthralgias; Denies back pain or extremity pain Integumentary Integumentary: Reports systems reviewed and no addt'l complaints, except as documented and other Details: Skin of the hands and feet improved ; Denies new lesions Neurologic Neurologic: Reports systems [...] complaints, except as documented Intake Vital Signs 07/19/25 12:59 08/09/25 13:22 08/16/25 15:23 08/16/25 15:30 Height 5 ft 7 in 5 ft 7 in 5 ft 7 in 5 ft 7 in Weight: 94.12 kg BMI 32.5 BP 113/77 Blood Pressure Location Lt brachial Position Sitting Respiration 18 Pulse 93 Pulse Source Monitor Temp 98.0 F Temperature Source Temporal Artery Pulse Oximetry (%) 97 Oxygen Delivery Method room air Intake Is patient in pain?: No Allergies No Known Allergies Allergy (Verified 08/16/25 15:27) Medications ?Medication ?Instructions ?Recorded ?Confirmed ?Type aspirin 81 mg chewable tablet 81 mg PO DAILY@0800 hx o f mi 06/09/19 08/16/25 History atorvastatin 80 mg tablet 80 mg PO QHS cholesterol #90 tabs 11/29/23 08/16/25 Rx letrozole 2.5 mg tablet 2.5 mg PO QDAY #30 tabs 07/1708/16/25 Rx Have you fallen in the past year?: No Central Venous Access Central Venous Access: Yes Port/PICC: Port CBC, CMP August 16, 2025 reviewed in EMR Exam Physical Exam [...] showed no malignant cells. Was seen at [facility] clinic by Dr. Cunningham in March 2025 who recommended standard adjuvant chemotherapy with gemcitabine Taxotere for 6 cycles followed by maintenance pazopanib plus letrozole indefinite/till progression. Received adjuvant gemcitabine and Taxotere April?July. She received 4 out of 6 planned cycles then unable to complete the course due to toxicities including fatigue, cytopenias, hand-foot syndrome, musculoskeletal aches and pains and a decline in performance status. After taking a month break (July 2025) her performance status have returnedto baseline and skin toxicity resolved. Of note her CA125 was not elevated. Chronic comorbid conditions: Obesity, dyslipidemia, coronary artery disease, nephrolithiasis, hypertension and active smoker. Plan: Based on NCCN guideline and consultation with Drs. Grady and Octavio: 1-started adjuvant Femara August 2025. 2. Will plan starting adjuvant pazopanib in September 2025 at 400 mg daily with escalation by 200 mg every 2 weeks if tolerated up to a target of 800 mg daily maintenance. 3. Referred to urology for nephrolithiasis Impression and plan discussed with patient and family. Imani Persaud MD Cream Tester, [facility] Divisions of Medical Oncology & Hematology Department of Internal Medicine [place] [address] This note was generated using a voice [...] you fallen in the past year?: No 08/16/25 1611 <Electronically signed by Imani jones MD> Date _ Imani Persaud MD Cosigner Signature: Date (if applicable) CC: Dr. Mackenzie Fink MD ~ [employer] Work Phone: Reason for referral (narrative)* Diagnostic Procedure Only (Routine) - Pending Review Specialty Diagnoses / Procedures Referred By Contac t Referred To Contact US IMAGING Diagnoses Neck mass Procedures US HEAD/NECK SOFT TISSUE OTHER US SOFT TISSUE HEAD & NECK REAL TIME IMGE DOCM Mackenzie Fink MD [address] [place] [address] Us Imaging Referral ID Status Reason Start Date Expiration Date Visits Requested Visits Authorized [id number] Pending Review Auto-Generat ed Referral 07/27/2022 08/26/2023 1 1 * Consult, Test, Treat (Routine) - Authorized Specialty Diagnoses / Procedures Referred By Contac t Referred To Contact General Surgery Diagnoses Blood in stool Procedures CONSULT TO GENERAL SURGERY OFFICE/OUTPATIENT [facility] MDM 60-74 MINUTES Mackenzie Fink MD [address] [place] [address] Referral ID Status Reason Start Date Expiration Date Visits Requested Visits Authorized [id number] Authorized PCP Requested Referral 07/27/2022 07/27/2023 1 1 [facility] for referral (narrative)* Diagnostic Procedure Only (Routine) - Closed Specialty Diagnoses / Procedures Referred By Contac t Referred To Contact BR IMAGING Diagnoses Obesity, Class I, BMI 30-34.9 Procedures BRITTANY SCREENING SCREENING MAMMOGRAPHY BI 2-VIEW BREAST INC CAD Sunday Cr PA-C [address] [place] [address] Br Imaging [address] [place] [address] Referral ID Status Reason Start Date Expiration Date V isits Requested Visits Authorized [id number] Closed Auto-Generate d Referral 07/23/2022 08/22/2023 1 1 [facility] for referral (narrative)* Outpatient Procedure (Routine) - Authorized Specialty Diagnoses / Procedures Referred By Contac t Referred To Contact [facility] Diagnoses Numbness Procedures EMG(NEURO/NI) NERVE CONDUCTION STUDIES 9-10 STUDIES Mackenzie Fink MD [address] [place] [address] Neurological [place] [address] [place] [address] Referral ID Status Reason Start Date Expiration Date Visits Requested Visits Authorized [id number] Authorized Auto-Generat ed Referral 01/26/2023 01/27/2024 1 1 * Diagnostic Procedure Only (Routine) - Closed Specialty Diagnoses / Procedures Referred By Contac t Referred To Contact XR IMAGING Diagnoses Right elbow pain Procedures XR ELBOW GENERAL 2V AP/LAT RIGHT RADEX ELBOW 2 VIEWS Mackenzie Fink MD [facility] [place] [address] Xr Imaging Referral ID Status Reason Start Date Expiration Date V isits Requested Visits Authorized [id number] Closed Auto-Generate d Referral 01/26/2023 02/25/2024 1 1 * Diagnostic Procedure Only (Routine) - Closed Specialty Diagnoses / Procedures Referred By Contac t Referred To Contact XR IMAGING Diagnoses Trigger little finger of right hand Procedures XR HAND GENERAL 3V PA/LAT/OBL RIGHT RADEX HAND MINIMUM 3 VIEWS Mackenzie Fink MD [address] [place] [address] Xr Imaging Referral ID Status Reason Start Date Expiration Date V isits Requested Visits Authorized [id number] Closed Auto-Generate d Referral 01/26/2023 02/25/2024 1 1 [facility] for referral (narrative)* Diagnostic Procedure Only (Routine) - Closed Specialty Diagnoses / Procedures Referred By Contac t Referred To Contact XR IMAGING Diagnoses Right elbow pain Procedures XR ELBOW GENERAL 2V AP/LAT RIGHT RADEX ELBOW 2 VIEWS Mackenzie Fink MD [address] [place] [address] Xr Imaging [id number] Referral ID Status Reason Start Date Expiration Date V isits Requested Visits Authorized [id number] Closed Auto-Generate d Referral 01/26/2023 02/25/2024 1 1 * Diagnostic Procedure Only (Routine) - Closed Specialty Diagnoses / Procedures Referred By Contac t Referred To Contact XR IMAGING Diagnoses Trigger little finger of right hand Procedures XR HAND GENERAL 3V PA/LAT/OBL RIGHT RADEX HAND MINIMUM 3 VIEWS Mackenzie Fink MD [address] [place] [address] [place] [id number] Referral ID Status Reason Start Date Expiration Date V isits Requested Visits Authorized [id number] Closed Auto-Generate d Referral 01/26/2023 02/25/2024 1 1 [facility] for referral (narrative)* Diagnostic Procedure Only (Routine) - Authorized Specialty Diagnoses / Procedures Referred By Contac t Referred To Contact BR IMAGING Diagnoses Encounter for screening mammogram for breast cancer Procedures BRITTANY SCREENING W ALFONSO SCREENING DIGITAL BREAST TOMOSYNTHESIS BI SCREENING MAMMOGRAPHY BI 2-VIEW BREAST INC CAD Susy Smith APRN.WATER QUALITY TESTER [address] [place], [place] [id number] Br Imaging [address] [place] [address] Referral ID Status Reason Start Date Expiration Date Visits Requested Visits Authorized [id number] Authorized Auto-Generat ed Referral 10/25/2025 1 1 [facility] for referral (narrative)* Diagnostic Procedure Only (Routine) - New Request Specialty Diagnoses / Procedures Referred By Contac t Referred To Contact BR IMAGING Diagnoses Encounter for screening mammogram for malignant neoplasm of breast Procedures BRITTANY SCREENING W ALFONSO SCREENING DIGITAL BREAST TOMOSYNTHESIS BI SCREENING MAMMOGRAPHY BI 2-VIEW BREAST INC CAD Susy Smith, SREEDHAR.WATER QUALITY TESTER [address] [place] [id number] Br Imaging [address] [place] [address] Referral ID Status Reason Start Date Expiration Date Visits Requested Visits Authorized [id number] New Request Auto-Generat ed Referral 4 10/25/2025 1 1 [facility] for referral (narrative)No reason for referral information availableWMercy [facility] Work Phone: Reason for visit Narrative* Diagnostic Procedure Only (Routine) - Closed Specialty Diagnoses / Procedures Referred By Contac t Referred To Contact BR IMAGING Diagnoses Obesity, Class I, BMI 30-34.9 Procedures BRITTANY SCREENING SCREENING MAMMOGRAPHY BI 2-VIEW BREAST INC CAD Sunday Cr PA-C [address] [place] [address] Br Imaging [address] [place] [address] Referral ID Status Reason Start Date Expiration Date V isits Requested Visits Authorized [id number] Closed Auto-Generate d Referral 07/23/2022 08/22/2023 1 1 [facility] for visit Narrative* Diagnostic Procedure Only (Routine) - Closed Specialty Diagnoses / Procedures Referred By Lisa t Referred To Contact BR IMAGING Diagnoses Encounter for screening mammogram for malignant neoplasm of breast Procedures BRITTANY SCREENING SCREENING MAMMOGRAPHY BI 2-VIEW BREAST INC CAD Mackenzie Fink MD [address] [place] [address] Br Imaging [address] [place] [address] Referral ID Status Reason Start Date Expiration Date V isits Requested Visits Authorized [id number] Closed Auto-Generate d Referral 08/31/2023 09/29/2024 1 1 [facility] for visit Narrative* Diagnostic Procedure Only (Routine) - Closed Specialty Diagnoses / Procedures Referred By Lisa t Referred To Contact XR IMAGING Diagnoses Right elbow pain Procedures XR ELBOW GENERAL 2V AP/LAT RIGHT RADEX ELBOW 2 VIEWS Mackenzie Fink MD [address] [place] [address] [place] [address] Referral ID Status Reason Start Date Expiration Date V isits Requested Visits Authorized [id number] Closed Auto-Generate d Referral 01/26/2023 02/25/2024 1 1 [facility] for visit Narrative* Diagnostic Procedure Only (Routine) - Closed Specialty Diagnoses / Procedures Referred By Lisa melchor Referred To Contact BR IMAGING Diagnoses Encounter for screening mammogram for breast cancer Procedures BRITTANY SCREENING W ALFONSO SCREENING DIGITAL BREAST TOMOSYNTHESIS BI SCREENING MAMMOGRAPHY BI 2-VIEW BREAST INC CAD Susy Smith, SREEDHAR.WATER QUALITY TESTER [address] [place] [address] Br Imaging [address] [place] [address] Referral ID Status Reason Start Date Expiration Date V isits Requested Visits Authorized [id number] Closed Auto-Generate d Referral 09/25/2024 10/25/2025 1 1 [facility] for visit Narrative* Auth/Cert (Routine) Specialty Diagnoses / Procedures Referred By Lisa melchor Referred To Contact Diagnoses Intra-abdominal and pelvic swelling, mass and lump, unspecified site Procedures HI EXPLORATORY LAPAROTOMY CELIOTOMY W/WO BIOPSY SPX HI LAPAROSCOPY W/RMVL ADNEXAL STRUCTURES HI LMTD LMPHADEC STAGING SPX PEL&PARA-AORTIC HI LAPAROSCOPY SURG W/BX SINGLE/MULTIPLE LAPAROTOMY, EXPLORATORY LEFT LAPAROSCOPIC, SALPINGO-OOPHORECTOMY POSSIBLE LYMPHADENECTOMY, PARA-AORTIC OR PELVIC, LIMITED, FOR STAGING LAPAROSCOPY, WITH BIOPSY Darvin Grady MD [address] [place] [address] Phone: tel: fax: Referral ID Status Reason Start Date Expiration Date Visits Re quested Visits Authorized [id number] 01/17/2025 1 1 [place] Chief Complaint and Reason for Visit Chief [...] leiomyosarcoma of pelvis July 12, 2025 8:44am Chief Complaint Admit Date PORT PLACEMENT March [...] - LABS - GEMCITABINE July 122024 8:45am GENERALIZED WEAKNESS AND UTI, HYPONATREM IA July 16, 2025 1:46pm Reason for Visit Admit Date Encounter for [...] May 31, 2025 9:03 am 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, 2025 9:03am Primary leiomyosarcoma of pelvis May [id number] 9:03am Constipation June 07, 2025 8:48 am Encounter for chemotherapy management Ju ly 2024 8:48am 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 June 07, 2025 8:48am Primary leiomyosarcoma of pelvis June 072024 8:48am Elevated transaminase measurement May 162024 8:48am Encounter for chemotherapy management Ju ly 2024 8:58am Primary leiomyosarcoma of pelvis June 142024 8:58am Primary leiomyosarcoma of pelvis June 28, 2025 8:43am Encounter for chemotherapy management Au rachel 2024 8:44am Iron deficiency anemia July 12, 2025 8:44am 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 July 12, 2025 8:44am Primary leiomyosarcoma of pelvis July 12, 2025 8:44am UTI (urinary tract infection) July 16, 2025 1:46pm Chief Complaint Admit Date PORT PLACEMENT March [...] - LABS - GEMCITABINE July 122024 8:45am GENERALIZED WEAKNESS AND UTI, HYPONATREM IA July 16, 2025 1:46pm GENERALIZED WEAKNESS AND UTI, HYPONATREM IA July 17, 2025 3:41pm Chief Complaint Admit Date PORT PLACEMENT March [...] 2 WKS -LABS - TAXOTERE/GEMZAR June 8:44am GENERALIZED WEAKNESS AND UTI, HYPONATREM IA July 16, 2025 1:46pm GENERALIZED WEAKNESS AND UTI, HYPONATREM IA July 17, 2025 3:41pm NEW START - LABS - GEMCITABINE July 19, 2025 10:00am 1 WK - LABS - TAXOTERE/GEMZAR July 19, 2025 11:20am Reason for Visit Admit Date Encounter for [...] May 31, 2025 9:03 am 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, 2025 9:03am Primary leiomyosarcoma of pelvis May [id number] 9:03am Constipation June 07, 2025 8:48 am Encounter for chemotherapy management Ju ly 2024 8:48am 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 June 07, 2025 8:48am Primary leiomyosarcoma of pelvis June 072024 8:48am Elevated transaminase measurement May 162024 8:48am Encounter for chemotherapy management Ju ly 2024 8:58am Primary leiomyosarcoma of pelvis June 142024 8:58am Primary leiomyosarcoma of pelvis June 28, 2025 8:43am Encounter for chemotherapy management Au rachel 2024 8:44am Iron deficiency anemia July 12, 2025 8:44am 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 July 12, 2025 8:44am Primary leiomyosarcoma of pelvis July 12, 2025 8:44am UTI (urinary tract infection) July 16, 2025 1:46pm Primary leiomyosarcoma of pelvis Septemb 2024 11:20am Chief Complaint Admit Date 1 Y FU April 18, 2025 10:44 [...] 2 WKS -LABS - TAXOTERE/GEMZAR June 8:44am GENERALIZED WEAKNESS AND UTI, HYPONATREM IA July 16, 2025 1:46pm GENERALIZED WEAKNESS AND UTI, HYPONATREM IA July 17, 2025 3:41pm GENERALIZED WEAKNESS AND UTI, HYPONATREM IA July 18, 2025 1:48pm NEW [place] - LABS - GEMCITABINE July 19, 2025 10:00am 1 WK - LABS - TAXOTERE/GEMZAR July 19, 2025 11:20am CHEMO ED August 09, 2025 10:58am Malignant neoplasm of connective and sof t tissue o August 09, 2025 12:35pm Reason for Visit Admit Date Essential (primary) hypertension April 10:44am High cholesterol [...] May 31, 2025 9:03 am 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, 2025 9:03am Primary leiomyosarcoma of pelvis May [id number] 9:03am Constipation June 07, 2025 8:48 am Encounter for chemotherapy management Ju ly 2024 8:48am 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 June 07, 2025 8:48am Primary leiomyosarcoma of pelvis June 072024 8:48am Elevated transaminase measurement May 162024 8:48am Encounter for chemotherapy management Ju ly 2024 8:58am Primary leiomyosarcoma of pelvis June 142024 8:58am Primary leiomyosarcoma of pelvis June 28, 2025 8:43am Encounter for chemotherapy management Au rachel 2024 8:44am Iron deficiency anemia July 12, 2025 8:44am 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 July 12, 2025 8:44am Primary leiomyosarcoma of pelvis July 12, 2025 8:44am UTI (urinary tract infection) July 16, 2025 1:46pm Primary leiomyosarcoma of pelvis Septemb er 2024 11:20am Encounter for education August 09, 2025 10:58am Primary leiomyosarcoma of pelvis Septemb er 2025 10:58am Chief Complaint Admit Date 1 Y April 18, 2025 10:44 am NEW START [...] 2 WKS -LABS - TAXOTERE/GEMZAR June 8:44am GENERALIZED WEAKNESS AND UTI, HYPONATREM IA July 16, 2025 1:46pm GENERALIZED WEAKNESS AND UTI, HYPONATREM IA July 17, 2025 3:41pm GENERALIZED WEAKNESS AND UTI, HYPONATREM IA July 18, 2025 1:48pm 1 WK - LABS - TAXOTERE/GEMZAR July 19, 2025 11:20am CHEMO ED August 09, 2025 10:58am Malignant neoplasm of connective and sof t tissue o August 09, 2025 12:35pm NEW [place] - LABS - GEMCITABINE August 162024 11:00am Chief Complaint Admit Date 1 Y FU April 18, 2025 10:44 [...] 2 WKS -LABS - TAXOTERE/GEMZAR June 8:44am GENERALIZED WEAKNESS AND UTI, HYPONATREM IA July 16, 2025 1:46pm GENERALIZED WEAKNESS AND UTI, HYPONATREM IA July 17, 2025 3:41pm GENERALIZED WEAKNESS AND UTI, HYPONATREM IA July 18, 2025 1:48pm 1 WK - LABS - TAXOTERE/GEMZAR July 19, 2025 11:20am CHEMO ED August 09, 2025 10:58am Malignant neoplasm of connective and sof t tissue o August 09, 2025 12:35pm NEW [place] - LABS - GEMCITABINE August 162024 11:00am 1 MO - LABS IN AM - REVIEW SCANS August 16, 2025 3:20pm Reason for Visit Admit Date Essential (primary) hypertension April 10:44am High cholesterol [...] May 31, 2025 9:03 am 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, 2025 9:03am Primary leiomyosarcoma of pelvis May [id number] 9:03am Constipation June 07, 2025 8:48 am Encounter for chemotherapy management Ju ly 2024 8:48am 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 June 07, 2025 8:48am Primary leiomyosarcoma of pelvis June 072024 8:48am Elevated transaminase measurement May 162024 8:48am Encounter for chemotherapy management Ju ly 2024 8:58am Primary leiomyosarcoma of pelvis June 142024 8:58am Primary leiomyosarcoma of pelvis June 28, 2025 8:43am Encounter for chemotherapy management Au rachel 2024 8:44am Iron deficiency anemia July 12, 2025 8:44am 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 July 12, 2025 8:44am Primary leiomyosarcoma of pelvis July 12, 2025 8:44am UTI (urinary tract infection) July 16, 2025 1:46pm Primary leiomyosarcoma of pelvis Septemb er 2024 11:20am Encounter for education August 09, 2025 10:58am Primary leiomyosarcoma of pelvis Septemb er 2024 10:58am Primary leiomyosarcoma of pelvis August 16, 2025 3:20pm Advance Directives No Advanced Directives Records Found Advance Directive Response Recorded Date/ Time Living Will No May 21, 2022 1 1:02am Power of Student Records Coordinator No May 21, 2022 11:02am Advance Directive Response Recorded Date/ Time Living Will No May 28, 2022 2:48pm Power of Student Records Coordinator No May 28 2:48pm Advance Directive Response Recorded Date/ Time Living Will No May 28, 2022 1:48pm Power of Student Records Coordinator No May 28 1:48pm Date Activated Date Inactivated Comments 01/26/2025 6:33 AM 01/27/2025 2:16 PM Advance Directive Response Recorded Date/ Time Living Will No January 08 2 025 8:27pm Power of Student Records Coordinator No January 08, 2025 8:27pm Date Activated Date Inactivated Comments 01/26/2025 6:33 AM 01/27/2025 2:16 PM Advance Directive Response Recorded Date/ Time Living Will No January 08 2 025 8:27pm Do you have a Healthcare Power of Student Records Coordinator? No January 08, 2025 8:27pm Advance Directive Response Recorded Date/ Time Living Will No January 08 8:27pm Do you have a Healthcare Power of Student Records Coordinator? No January 08, 2025 8:27pm Do you have a Healthcare Power of Student Records Coordinator? No March 28, 2025 2:20pm Advance Directive Response Recorded Date/ Time Advance Directives on File No April 19, 2025 10:08am Living Will No April 19, 2025 1 0:08am Do you have a Healthcare Power of Student Records Coordinator? No April 19, 2025 10:08am Advance Directives No April 19 10:08am Living Will No January 08 8:27pm Do you have a Healthcare Power of Student Records Coordinator? No January 08, 2025 8:27pm Do you have a Healthcare Power of Student Records Coordinator? No March 28, 2025 2:20pm Advance Directive Response Recorded Date/ Time Advance Directives on File No April 26, 2025 10:00am Living Will No April 26, 2025 10:00am Do you have a Healthcare Power of Student Records Coordinator? No April 26, 2025 10:00am Advance Directives No April 26 10:00am Do you have a Healthcare Power of Student Records Coordinator? No April 28, 2025 7:34pm Living Will No January 08 8:27pm Do you have a Healthcare Power of Student Records Coordinator? No January 08, 2025 8:27pm Do you have a Healthcare Power of Student Records Coordinator? No March 28, 2025 2:20pm Advance Directive Response Recorded Date/ Time Advance Directives on File No April 26, 2025 10:00am Living Will No April 26, 2025 10:00am Do you have a Healthcare Power of Student Records Coordinator? No April 26, 2025 10:00am Advance Directives No April 26 10:00am Do you have a Healthcare Power of Student Records Coordinator? No April 28, 2025 7:34pm Living Will No January 08 8:27pm Do you have a Healthcare Power of Student Records Coordinator? No January 08, 2025 8:27pm Do you have a Healthcare Power of Student Records Coordinator? No March 28, 2025 2:20pm Do you have a Healthcare Power of Student Records Coordinator? No May 04, 2025 6:13pm Advance Directive Response Recorded Date/ Time Advance Directives on File No April 26, 2025 10:00am Living Will No April 26, 2025 10:00am Do you have a Healthcare Power of Student Records Coordinator? No April 26, 2025 10:00am Advance Directives No April 26 10:00am Do you have a Healthcare Power of Student Records Coordinator? No April 28, 2025 7:34pm Do you have a Healthcare Power of Student Records Coordinator? No March 28, 2025 2:20pm Do you have a Healthcare Power of Student Records Coordinator? No May 04, 2025 6:13pm Advance Directive Response Recorded Date/ Time Advance Directives on File No May 10, 2025 11:48am Living Will No May 10, 2025 11:48am Do you have a Healthcare Power of Student Records Coordinator? No May 10, 2025 11:48am Advance Directives No May 10 11:48am Do you have a Healthcare Power of Student Records Coordinator? No April 28, 2025 7:34pm Do you have a Healthcare Power of Student Records Coordinator? No March 28, 2025 2:20pm Do you have a Healthcare Power of Student Records Coordinator? No May 04, 2025 6:13pm Advance Directive Response Recorded Date/ Time Advance Directives on File No May 17, 2025 10:28am Living Will No May 17, 2025 1 0:28am Do you have a Healthcare Power of Student Records Coordinator? No May 17, 2025 10:28am Advance Directives No May 17 10:28am Do you have a Healthcare Power of Student Records Coordinator? No April 28, 2025 7:34pm Do you have a Healthcare Power of Student Records Coordinator? No March 28, 2025 2:20pm Do you have a Healthcare Power of Student Records Coordinator? No May 04, 2025 6:13pm Advance Directive Response Recorded Date/ Time Advance Directives on File No May 31, 2025 11:30am Living Will No May 31, 2025 11:30am Do you have a Healthcare Power of Student Records Coordinator? No May 31, 2025 11:30am Advance Directives No May 31 11:30am Do you have a Healthcare Power of Student Records Coordinator? No April 28, 2025 7:34pm Do you have a Healthcare Power of Student Records Coordinator? No March 28, 2025 2:20pm Do you have a Healthcare Power of Student Records Coordinator? No May 04, 2025 6:13pm Advance Directive Response Recorded Date/ Time Advance Directives on File No June 14, 2025 11:27am Living Will No June 14, 2025 11:27am Do you have a Healthcare Power of Student Records Coordinator? No June 14, 2025 11:27am Advance Directives No June 14 11:27am Do you have a Healthcare Power of Student Records Coordinator? No April 28, 2025 7:34pm Do you have a Healthcare Power of Student Records Coordinator? No March 28, 2025 2:20pm Do you have a Healthcare Power of Student Records Coordinator? No May 04, 2025 6:13pm Advance Directive Response Recorded Date/ Time Advance Directives on File No Augus t 2024 10:46am Living Will No July 12 10:46am Do you have a Healthcare Power of Student Records Coordinator? No July 12, 2025 10:46am Advance Directives No July 12, 2025 10:46am Do you have a Healthcare Power of Student Records Coordinator? No April 28, 2025 7:34pm Do you have a Healthcare Power of Student Records Coordinator? No March 28, 2025 2:20pm Do you have a Healthcare Power of Student Records Coordinator? No May 04, 2025 6:13pm Do you have a Healthcare Power of Student Records Coordinator? No July 16, 2025 9:22am Advance Directive Response Recorded Date/ Time Advance Directives on File No Augus t 2024 10:46am Living Will No July 12 10:46am Do you have a Healthcare Power of Student Records Coordinator? No July 12, 2025 10:46am Advance Directives No July 12, 2025 10:46am Do you have a Healthcare Power of Student Records Coordinator? No April 28, 2025 7:34pm Do you have a Healthcare Power of Student Records Coordinator? No March 28, 2025 2:20pm Do you have a Healthcare Power of Student Records Coordinator? No May 04, 2025 6:13pm Do you have a Healthcare Power of Student Records Coordinator? No July 16, 2025 4:08pm Advance Directive Response Recorded Date/ Time Advance Directives on File No Augus t 2024 10:46am Living Will No July 12 10:46am Do you have a Healthcare Power of Student Records Coordinator? No July 12, 2025 10:46am Advance Directives No July 12, 2025 10:46am Do you have a Healthcare Power of Student Records Coordinator? No April 28, 2025 7:34pm Do you have a Healthcare Power of Student Records Coordinator? No May 04, 2025 6:13pm Do you have a Healthcare Power of Student Records Coordinator? No July 16, 2025 4:08pm Family History No Family History Records Found [...] or prosecute any alcohol or drug abuse patient.[facility] the event this information is protected by the Federal Confidentiality of Alcohol and Drug Abuse Patient Records regulations: The Federal rules restrict any use of the information to criminally investigate or prosecute any alcohol or drug abuse patient.[facility] HospitalIn the event this information is protected by the Federal Confidentiality of Alcohol and Drug Abuse Patient Records regulations: The Federal rules restrict any use of the information to criminally investigate or prosecute any alcohol or drug abuse patient.[facility]In the event this information is protected by the Federal Confidentiality of Alcohol and Drug Abuse Patient Records regulations: The Federal rules restrict any use of the information to criminally investigate or prosecute any alcohol or drug abuse patient.[facility] HospitalIn the event this information is protected by the Federal Confidentiality of Alcohol and Drug Abuse Patient Records regulations: The Federal rules restrict any use of the information to criminally investigate or prosecute any alcohol or drug abuse patient.[facility] HospitalIn the event this information is protected by the Federal Confidentiality of Alcohol and Drug Abuse Patient Records regulations: The Federal rules restrict any use of the information to criminally investigate or prosecute any alcohol or drug abuse patient.[facility] HospitalIn the event this information is protected by the Federal Confidentiality of Alcohol and Drug Abuse Patient Records regulations: The Federal rules restrict any use of the information to criminally investigate or prosecute any alcohol or drug abuse patient.[facility] HospitalIn the event this information is protected by the Federal Confidentiality of Alcohol and Drug Abuse Patient Records regulations: The Federal rules restrict any use of the information to criminally investigate or prosecute any alcohol or drug abuse patient.[facility] HospitalIn the event this information is protected by the Federal Confidentiality of Alcohol and Drug Abuse Patient Records regulations: The Federal rules restrict any use of the information to criminally investigate or prosecute any alcohol or drug abuse patient.[facility] HospitalIn the event this information is protected by the Federal Confidentiality of Alcohol and Drug Abuse Patient Records regulations: The Federal rules restrict any use of the information to criminally investigate or prosecute any alcohol or drug abuse patient.[facility] HospitalIn the event this information is protected by the Federal Confidentiality of Alcohol and Drug Abuse Patient Records regulations: The Federal rules restrict any use of the information to criminally investigate or prosecute any alcohol or drug abuse patient.[facility] HospitalIn the event this information is protected by the Federal Confidentiality of Alcohol and Drug Abuse Patient Records regulations: The Federal rules restrict any use of the information to criminally investigate or prosecute any alcohol or drug abuse patient.[facility] HospitalIn the event this information is protected by the Federal Confidentiality of Alcohol and Drug Abuse Patient Records regulations: The Federal rules restrict any use of the information to criminally investigate or prosecute any alcohol or drug abuse patient.[facility] HospitalIn the event this information is protected by the Federal Confidentiality of Alcohol and Drug Abuse Patient Records regulations: The Federal rules restrict any use of the information to criminally investigate or prosecute any alcohol or drug abuse patient.[facility] HospitalIn the event this information is protected by the Federal Confidentiality of Alcohol and Drug Abuse Patient Records regulations: The Federal rules restrict any use of the information to criminally investigate or prosecute any alcohol or drug abuse patient.[facility] HospitalIn the event this information is protected by the Federal Confidentiality of Alcohol and Drug Abuse Patient Records regulations: The Federal rules restrict any use of the information to criminally investigate or prosecute any alcohol or drug abuse patient.[facility] HospitalIn the event this information is protected by the Federal Confidentiality of Alcohol and Drug Abuse Patient Records regulations: The Federal rules restrict any use of the information to criminally investigate or prosecute any alcohol or drug abuse patient.[facility] HospitalIn the event this information is protected by the Federal Confidentiality of Alcohol and Drug Abuse Patient Records regulations: The Federal rules restrict any use of the information to criminally investigate or prosecute any alcohol or drug abuse patient.[facility] HospitalIn the event this information is protected by the Federal Confidentiality of Alcohol and Drug Abuse Patient Records regulations: The Federal rules restrict any use of the information to criminally investigate or prosecute any alcohol or drug abuse patient.[facility] HospitalIn the event this information is protected by the Federal Confidentiality of Alcohol and Drug Abuse Patient Records regulations: The Federal rules restrict any use of the information to criminally investigate or prosecute any alcohol or drug abuse patient.[facility] HospitalIn the event this information is protected by the Federal Confidentiality of Alcohol and Drug Abuse Patient Records regulations: The Federal rules restrict any use of the information to criminally investigate or prosecute any alcohol or drug abuse patient.[facility] HospitalIn the event this information is protected by the Federal Confidentiality of Alcohol and Drug Abuse Patient Records regulations: The Federal rules restrict any use of the information to criminally investigate or prosecute any alcohol or drug abuse patient.[facility] HospitalIn the event this information is protected by the Federal Confidentiality of Alcohol and Drug Abuse Patient Records regulations: The Federal rules restrict any use of the information to criminally investigate or prosecute any alcohol or drug abuse patient.[facility] HospitalIn the event this information is protected by the Federal Confidentiality of Alcohol and Drug Abuse Patient Records regulations: The Federal rules restrict any use of the information to criminally investigate or prosecute any alcohol or drug abuse patient.[facility] HospitalIn the event this information is protected by the Federal Confidentiality of Alcohol and Drug Abuse Patient Records regulations: The Federal rules restrict any use of the information to criminally investigate or prosecute any alcohol or drug abuse patient.[facility] HospitalIn the event this information is protected by the Federal Confidentiality of Alcohol and Drug Abuse Patient Records regulations: The Federal rules restrict any use of the information to criminally investigate or prosecute any alcohol or drug abuse patient.[facility] HospitalIn the event this information is protected by the Federal Confidentiality of Alcohol and Drug Abuse Patient Records regulations: The Federal rules restrict any use of the information to criminally investigate or prosecute any alcohol or drug abuse patient.[facility] HospitalIn the event this information is protected by the Federal Confidentiality of Alcohol and Drug Abuse Patient Records regulations: The Federal rules restrict any use of the information to criminally investigate or prosecute any alcohol or drug abuse patient.[facility] HospitalIn the event this information is protected by the Federal Confidentiality of Alcohol and Drug Abuse Patient Records regulations: The Federal rules restrict any use of the information to criminally investigate or prosecute any alcohol or drug abuse patient.[facility] HospitalIn the event this information is protected by the Federal Confidentiality of Alcohol and Drug Abuse Patient Records regulations: The Federal rules restrict any use of the information to criminally investigate or prosecute any alcohol or drug abuse patient.[facility] HospitalIn the event this information is protected by the Federal Confidentiality of Alcohol and Drug Abuse Patient Records regulations: The Federal rules restrict any use of the information to criminally investigate or prosecute any alcohol or drug abuse patient.[facility] HospitalIn the event this information is protected by the Federal Confidentiality of Alcohol and Drug Abuse Patient Records regulations: The Federal rules restrict any use of the information to criminally investigate or prosecute any alcohol or drug abuse patient.[facility] HospitalIn the event this information is protected by the Federal Confidentiality of Alcohol and Drug Abuse Patient Records regulations: The Federal rules restrict any use of the information to criminally investigate or prosecute any alcohol or drug abuse patient.[facility] HospitalIn the event this information is protected by the Federal Confidentiality of Alcohol and Drug Abuse Patient Records regulations: The Federal rules restrict any use of the information to criminally investigate or prosecute any alcohol or drug abuse patient.[facility] HospitalIn the event this information is protected by the Federal Confidentiality of Alcohol and Drug Abuse Patient Records regulations: The Federal rules restrict any use of the information to criminally investigate or prosecute any alcohol or drug abuse patient.[facility] HospitalIn the event this information is protected by the Federal Confidentiality of Alcohol and Drug Abuse Patient Records regulations: The Federal rules restrict any use of the information to criminally investigate or prosecute any alcohol or drug abuse patient.[facility] the event this information is protected by the Federal Confidentiality of Alcohol and Drug Abuse Patient Records regulations: The Federal rules restrict any use of the information to criminally investigate or prosecute any alcohol or drug abuse patient.[facility] HospitalIn the event this information is protected by the Federal Confidentiality of Alcohol and Drug Abuse Patient Records regulations: The Federal rules restrict any use of the information to criminally investigate or prosecute any alcohol or drug abuse patient.[facility] HospitalIn the event this information is protected by the Federal Confidentiality of Alcohol and Drug Abuse Patient Records regulations: The Federal rules restrict any use of the information to criminally investigate or prosecute any alcohol or drug abuse patient.[facility] Reason for Visit (unrecogniz ed section and content) Reason Comments Appointment Reason Onset Date Comments Refill Request 02/27/2022 Reason Comments Schedule Surgery Reason Comments Discussion Specialty Diagnoses / Procedures Referred By Contac t Referred To Contact CARPENTER REFRIGERATOR Diagnoses Medication and surgery Procedures MYC SPECIALIST OFFICE VISIT Kyleigh Saucedo MD [address] [place] [address] Kyleigh Saucedo MD [address] [place] [address] Referral ID Status Reason Start Date Expiration Date V isits Requested Visits Authorized [id number] Closed Financial Clearance Required - Self Pay [...] swelling, mass and lump, unspecified site Procedures HI OFFICE/OUTPATIENT NEW HIGH MDM 60 MINUTES Imani Persaud [id number] 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 Imani Persaud MB [facility] [address] [place] [address] Phone: tel: fax: Christopher Cunningham MD [address] [place] [address] Phone: tel: fax: Referral ID Status Reason Start Date Expiration Date Visits Requested Visits Authorized [id number] New Request Clinical Trial 02/27/2025 03/24/2026 1 1 Goals (unrecognized section and content) Goals may be documented in a n alternate sectionGoals may be documented in an alternate sectionGoals may be documented in an alternate sectionGoals may be documented in an alternate sectionGoals may be documented in an alternate section Care Teams (unrecognized sec tion and content) Chairman Of The Board Relationship Specialty Start Date End Date Mackenzie Fink MD [address] [place] [address] PCP - General Family Practice 07/27/22 Chairman Of The Board Relationship Specialty Start Date End Date Mackenzie Fink MD [address] [place] [address] PCP - General Family Practice 07/27/22 Chairman Of The Board Relationship Specialty Start Date End Date Mackenzie Fink MD [address] [place] [address] PCP - General Family Practice 07/27/22 Chairman Of The Board Relationship Specialty Start Date End Date Mackenzie Fink MD [address] [facility] [place] [address] PCP - General Family Practice 07/27/22 Chairman Of The Board Relationship Specialty Start Date End Date Mackenzie Fink MD [address] [place] [address] PCP - General Family Medicine 07/27/22 Chairman Of The Board Relationship Specialty Start Date End Date Mackenzie Fink MD [address] [place] [address] PCP - General Family Medicine 07/27/22 Team Status: Active Member Role Status Dates Meagan Weinstein CORE MANAGER, CORE MANAGER-C Family Provider Active Dr. Mackenzie Fink MD Primary Care Provider Active Team Status: Inactive Member Role Status Dates No Primary Care Physician Referring Provider Active Dr. Joni Michel MD Attending Provider Active Dr. Mackenzie Fink MD Primary Care Provider Active Team Status: Inactive Member Role Status Dates Dr. Mackenzie Fink MD Primary Care Provider Active Cristin ALEX, PA Attending Provider, Referr ing Provider Active Team Status: Active Member Role Status Dates Dr. Mackenzie Fink MD Primary Care Provider Active Dr. Joni Michel MD Attending Provider Active Chairman Of The Board Relationship Specialty Start Date End Date Mackenzie Fink MD [address] [place] [address] PCP - General Family Medicine 07/27/22 Chairman Of The Board Relationship Specialty Start Date End Date Mackenzie Fink MD [address] [place] [address] PCP - General Family Medicine 07/27/22 Chairman Of The Board Relationship Specialty Start Date End Date Mackenzie Fink MD [address] [place] [address] PCP - General Family Medicine 07/27/22 Chairman Of The Board Relationship Specialty Start Date End Date Mackenzie Fink MD [address] [place] [address] PCP - General Family Medicine 07/27/22 Chairman Of The Board Relationship Specialty Start Date End Date Mackenzie Fink MD [address] [place] [address] PCP - General Family Medicine 07/27/22 Chairman Of The Board Relationship Specialty Start Date End Date Mackenzie Fink MD [address] [place] [address] PCP - General Family Medicine 07/27/22 Chairman Of The Board Relationship Specialty Start Date End Date Mackenzie Fink MD [address] [place] [address] PCP - General Family Medicine 07/27/22 Chairman Of The Board Relationship Specialty Start Date End Date Mackenzie Fink MD [address] [place] [address] PCP - General Family Medicine 07/27/22 Chairman Of The Board Relationship Specialty Start Date End Date Mackenzie Fink MD [address] [place] [address] PCP - General Family Medicine 07/27/22 Chairman Of The Board Relationship Specialty Start Date End Date Mackenzie Fink MD [address] [place] [address] PCP - General Family Medicine 07/27/22 Chairman Of The Board Relationship Specialty Start Date End Date Mackenzie Fink MD [address] [place] [address] PCP - General Family Medicine 07/27/22 Chairman Of The Board Relationship Specialty Start Date End Date Mackenzie Fink MD [address] [place] [address] PCP - General Family Medicine 07/27/22 Chairman Of The Board Relationship Specialty Start Date End Date Mackenzie Fink MD [address] [place] [address] PCP - General Family Medicine 07/27/22 Chairman Of The Board Relationship Specialty Start Date End Date Mackenzie Fink MD [address] [place] [address] PCP - General Family Medicine 07/27/22 Chairman Of The Board Relationship Specialty Start Date End Date Mackenzie Fink MD [address] [place] [address] PCP - General Family Medicine 07/27/22 Hilda Morin, LEAD SOFTWARE TEST ENGINEER.WATER QUALITY TESTER [address] [place] [address] Fruit Distributor Family Medicine 10/23/24 India Clifton APRN.WATER QUALITY TESTER [address] [place] [address] Fruit Distributor Family Medicine 10/23/24 Chairman Of The Board Relationship Specialty Start Date End Date Mackenzie Fink MD [address] [place] [address] PCP - General Family Medicine 07/27/22 Hilda Morin APRN.WATER QUALITY TESTER [address] [place] [address] Fruit Distributor Family Medicine 10/23/24 India Clifton APRN.WATER QUALITY TESTER [address] [place] [address] Fruit Distributor Family [facility] 10/23/24 Chairman Of The Board Relationship Specialty Start Date End Date Mackenzie Fink MD [address] [place] [address] PCP - General Family Medicine 01/17/25 Darvin Grady MD [address] [facility] [address] [place] [address] Consulting Physician Gynecologic Oncology 01/16/25 Chairman Of The Board Relationship Specialty Start Date End Date Mackenzie Fink MD [address] [place] [address] PCP - General Family Medicine 01/17/25 Darvin Grady MD [address] [facility] [address] [place], [place] [address] Consulting Physician Gynecologic Oncology 01/16/25 Chairman Of The Board Relationship Specialty Start Date End Date Mackenzie Fink MD [address] [place] [address] PCP - General Family Medicine 01/17/25 Darvin Grady MD [address] [facility] [address] [place] [address] Consulting Physician Gynecologic Oncology 01/16/25 Chairman Of The Board Relationship Specialty Start Date End Date Mackenzie Fink MD [address] [place] [address] PCP - General Family Medicine 01/17/25 Darvin Grady MD [address] [facility] [address] [place] [address] Consulting Physician Gynecologic Oncology 01/16/25 Team Status: Active Member Role Status Dates Dr. Mackenzie Fink MD Primary Care Provider Active Team Status: Inactive Member Role Status Dates Dr. Mackenzie Fink MD Primary Care Provider Active Start: January 08, 2025 End: January 08, 2025 Dr. Isaiah Villanueva DO Attending Provider Active Start: January 08, 2025 End: January 08, 2025 Dr. Isaiah Villanueva DO Emergency Provider Active Start: January 08, 2025 End: January 08, 2025 Team Status: Inactive Member Role Status Dates Dr. Mackenzie Fink MD Primary Care Provider Active Start: January 10, 2025 End: January 10, 2025 Dr. Imani Persaud MD Attending Provider Active Start: January 10, 2025 End: January 10, 2025 Nabil Santos NP-C Referring Provider Active Start: January 10, 2025 End: January 10, 2025 Team Status: Active Member Role Status Dates Dr. Mackenzie Fink MD Primary Care Provider Active Start: January 10, 2025 Dr. Imani Persaud MD Attending Provider Active Start: January 10, 2025 Dr. Imani Persaud MD Referring Provider Active Start: January 10, 2025 Team Status: Inactive Member Role Status Dates Dr. Mackenzie Fink MD Primary Care Provider Active Start: January 12, 2025 End: January 12, 2025 Dr. Imani Persaud MD Attending Provider Active Start: January 12, 2025 End: January 12, 2025 Dr. Imani Persaud MD Referring Provider Active Start: January 12, 2025 End: January 12, 2025 Chairman Of The Board Relationship Specialty Start Date End Date Mackenzie Fink MD [address] [place], [place] [address] PCP - General Family Medicine 01/17/25 Darvin Grady MD [address] [place] [address] Consulting Physician Gynecologic Oncology 01/16/25 Gladis Herbetr, LEAD SOFTWARE TEST ENGINEER - WATER QUALITY TESTER [address] [place] [address] Nurse Practitioner Nurse Practitioner 02/14/25 Chairman Of The Board Relationship Specialty Start Date End Date Mackenzie Fink MD [address] [place], [place] [address] PCP - General Family Medicine 01/17/25 Darvin Grady MD [address] [place] [address] Consulting Physician Gynecologic Oncology 01/16/25 Gladis Herbert, LEAD SOFTWARE TEST ENGINEER - WATER QUALITY TESTER [address] [place] [address] Nurse Practitioner Nurse Practitioner 02/14/25 Chairman Of The Board Relationship Specialty Start Date End Date Mackenzie Fink MD [address] [place] [address] PCP - General Family Medicine 01/17/25 Darvin Grady MD [address] [place] [address] Consulting Physician Gynecologic Oncology 01/16/25 Gladis Herbert, LEAD SOFTWARE TEST ENGINEER - WATER QUALITY TESTER [address] [place] [address] Nurse Practitioner Nurse Practitioner 02/14/25 Chairman Of The Board Relationship Specialty Start Date End Date Mackenzie Fink MD [address] [place] [address] PCP - General Family Medicine 01/17/25 Darvin Grady MD [address] [place] [address] Consulting Physician Gynecologic Oncology 01/16/25 Gladis Herbert, LEAD SOFTWARE TEST ENGINEER - WATER QUALITY TESTER [address] [place] [address] Nurse Practitioner Nurse Practitioner 02/14/25 Chairman Of The Board Relationship Specialty Start Date End Date Mackenzie Fink MD [address] [place] [address] PCP - General Family Medicine 01/17/25 Darvin Grady MD [address] [place] [address] Consulting Physician Gynecologic Oncology 01/16/25 Gladis Herbert, LEAD SOFTWARE TEST ENGINEER - WATER QUALITY TESTER [address] [place] [address] Nurse Practitioner Nurse Practitioner 02/14/25 Team Status: Inactive Member Role Status Dates Dr. Mackenzie Fink MD Primary Care Provider Active Start: February 26, 2025 End: February 26, 2025 Dr. Mackenzie Fink MD Referring Provider Active Start: February 26, 2025 End: February 26, 2025 Dr. Imani Persaud MD Attending Provider Active Start: February 26, 2025 End: February 26, 2025 Team Status: Inactive Member Role Status Dates Dr. Mackenzie Fink MD Primary Care Provider Active Start: March 26, 2025 End: March 26, 2025 Dr. Mackenzie Fink MD Referring Provider Active Start: March 26, 2025 End: March 26, 2025 Dr. Theo Richard MD Attending Provider Active Start: March 26, 2025 End: March 26, 2025 Team Status: Active Member Role Status Dates Dr. Mackenzie Fink MD Primary Care Provider Active Start: March 26, 2025 Dr. Imani Persuad MD Attending Provider Active Start: March 26, 2025 Dr. Imani Persaud MD Referring Provider Active Start: March 26, 2025 Team Status: Inactive Member Role Status Dates Dr. Mackenzie Fink MD Primary Care Provider Active Start: March 28, 2025 End: March 28, 2025 Dr. Mackenzie Fink MD Referring Provider Active Start: March 28, 2025 End: March 28, 2025 Dr. Imani Persaud MD Attending Provider Active Start: March 28, 2025 End: March 28, 2025 Team Status: Inactive Member Role Status Dates Dr. Mackenzie Fink MD Primary Care Provider Active Start: March 26, 2025 End: March 26, 2025 Dr. Imani Persaud MD Attending Provider Active Start: March 26, 2025 End: March 26, 2025 Dr. Imani Persaud MD Referring Provider Active Start: March 26, 2025 End: March 26, 2025 Team Status: Inactive Member Role Status Dates Dr. Mackenzie Fink MD Primary Care Provider Active Start: April 02, 2025 End: April 02, 2025 Dr. Theo Richard MD Attending Provider Active Start: April 02, 2025 End: April 02, 2025 Dr. Theo Richard MD Referring Provider Active Start: April 02, 2025 End: April 02, 2025 Team Status: Active Member Role Status Dates Dr. Mackenzie Fink MD Primary Care Provider Active Start: April 02, 2025 Dr. Theo Richard MD Attending Provider Active Start: April 02, 2025 Dr. Theo Richard MD Referring Provider Active Start: April 02, 2025 Dr. Theo Richard MD Other Provider Active Start: April 02, 2025 Chairman Of The Board Relationship Specialty Start Date End Date Mackenzie Fink MD [address] [facility] [place], [place] [address] PCP - General Family Medicine 02/27/25 Imani Persaud MB [facility] [address] [place], [place] [address] Oncologist Medical Oncology 02/27/25 Shannan Kearney RN Registered Nurse 02/27/25 Team Status: Inactive Member Role Status Dates Dr. Mackenzie Fink MD Primary Care Provider Active Start: April 04, 2025 End: April 04, 2025 Dr. Mackenzie Fink MD Referring Provider Active Start: April 04, 2025 End: April 04, 2025 Delmis Corral CORE MANAGER, CORE MANAGER-C Attending Provider Active Start: April 04, 2025 End: April 04, 2025 Team Status: Inactive Member Role Status Dates Dr. Mackenzie Fink MD Primary Care Provider Active Start: April 18, 2025 End: April 18, 2025 Dr. Mackenzie Fink MD Referring Provider Active Start: April 18, 2025 End: April 18, 2025 Keron Ross CORE MANAGER, CORE MANAGER-C Attending Provider Active S tart: April 18, 2025 End: April 18, 2025 Team Status: Inactive Member Role Status Dates Dr. Mackenzie Fink MD Primary Care Provider Active Start: April 19, 2025 End: April 19, 2025 Dr. Mackenzie Fink MD Referring Provider Active Start: April 19, 2025 End: April 19, 2025 Dr. Imani Persaud MD Attending Provider Active Start: April 19, 2025 End: April 19, 2025 Team Status: Active Member Role Status Dates Dr. Mackenzie Fink MD Primary Care Provider Active Start: April 19, 2025 Dr. Imani Persaud MD Attending Provider Active Start: April 19, 2025 Dr. Imani Persaud MD Referring Provider Active Start: April 19, 2025 Team Status: Active Member Role Status Dates Dr. Mackenzie Fink MD Primary Care Provider Active Start: April 26, 2025 Dr. Imani Persaud MD Attending Provider Active Start: April 26, 2025 Dr. Imani Persaud MD Referring Provider Active Start: April 26, 2025 Team Status: Inactive Member Role Status Dates Dr. Mackenzie Fink MD Primary Care Provider Active Start: April 26, 2025 End: April 26, 2025 Dr. Mackenzie Fink MD Referring Provider Active Start: April 26, 2025 End: April 26, 2025 Dr. Imani Persaud MD Attending Provider Active Start: April 26, 2025 End: April 26, 2025 Team Status: Inactive Member Role Status Dates Dr. Mackenzie Fink MD Primary Care Provider Active Start: April 28, 2025 End: April 28, 2025 Dr. Girish Mcgarry DO Emergency Provider Active Start: April 28, 2025 End: April 28, 2025 Team Status: Active Member Role Status Dates Dr. Mackenzie Fink MD Primary Care Provider Active Start: May 03, 2025 Dr. Imani Persaud MD Attending Provider Active Start: May 03, 2025 Dr. Imani Persaud MD Referring Provider Active Start: May 03, 2025 Team Status: Inactive Member Role Status Dates Dr. Mackenzie Fink MD Primary Care Provider Active Start: May 03, 2025 End: May 03, 2025 Dr. Mackenzie Fink MD Referring Provider Active Start: May 03, 2025 End: May 03, 2025 Delmis Corral CORE MANAGER, CORE MANAGER-C Attending Provider Active Start: May 03, 2025 End: May 03, 2025 Team Status: Inactive Member Role Status Dates Dr. Mackenzie Fink MD Primary Care Provider Active Start: April 28, 2025 End: April 28, 2025 Dr. Girish Mcgarry DO Attending Provider Active Start: April 28, 2025 End: April 28, 2025 Dr. Girish Mcgarry DO Emergency Provider Active Start: April 28, 2025 End: April 28, 2025 Team Status: Inactive Member Role Status Dates Dr. Mackenzie Fink MD Primary Care Provider Active Start: May 04, 2025 End: May 04, 2025 Dr. Girish Mcgarry DO Emergency Provider Active Start: May 04, 2025 End: May 04, 2025 Team Status: Inactive Member Role Status Dates Dr. Mackenzie Fink MD Primary Care Provider Active Start: May 04, 2025 End: May 04, 2025 Dr. Girish Mcgarry DO Attending Provider Active Start: May 04, 2025 End: May 04, 2025 Dr. Girish Mcgarry DO Emergency Provider Active Start: May 04, 2025 End: May 04, 2025 Team Status: Inactive Member Role Status Dates Dr. Mackenzie Fink MD Primary Care Provider Active Start: May 10, 2025 End: May 10, 2025 Dr. Mackenzie Fink MD Referring Provider Active Start: May 10, 2025 End: May 10, 2025 Delmis Corral CORE MANAGER, CORE MANAGER-C Attending Provider Active Start: May 10, 2025 End: May 10, 2025 Team Status: Active Member Role Status Dates Dr. Mackenzie Fink MD Primary Care Provider Active Start: May 10, 2025 Dr. Imani Persaud MD Attending Provider Active Start: May 10, 2025 Dr. Imani Persaud MD Referring Provider Active Start: May 10, 2025 Team Status: Active Member Role/Relationship Status Dates Dr. Mackenzie Fink MD Primary Care Provider Active Team Status: Inactive Member Role/Relationship Status Dates Dr. Mackenzie Fink MD Primary Care Provider Active Start: February 26, 2025 End: February 26, 2025 Dr. Mackenzie Fink MD Referring Provider Active Start: February 26, 2025 End: February 26, 2025 Dr. Imani Persaud MD Attending Provider Active Start: February 26, 2025 End: February 26, 2025 Team Status: Inactive Member Role/Relationship Status Dates Dr. Mackenzie Fink MD Primary Care Provider Active Start: March 26, 2025 End: March 26, 2025 Dr. Mackenzie Fink MD Referring Provider Active Start: March 26, 2025 End: March 26, 2025 Dr. Theo Richard MD Attending Provider Active Start: March 26, 2025 End: March 26, 2025 Team Status: Inactive Member Role/Relationship Status Dates Dr. Mackenzie Fink MD Primary Care Provider Active Start: March 26, 2025 End: March 26, 2025 Dr. Imani Persaud MD Attending Provider Active Start: March 26, 2025 End: March 26, 2025 Dr. Imani Persaud MD Referring Provider Active Start: March 26, 2025 End: March 26, 2025 Team Status: Inactive Member Role/Relationship Status Dates Dr. Mackenzie Fink MD Primary Care Provider Active Start: March 28, 2025 End: March 28, 2025 Dr. Mackenzie Fink MD Referring Provider Active Start: March 28, 2025 End: March 28, 2025 Dr. Imani Persaud MD Attending Provider Active Start: March 28, 2025 End: March 28, 2025 Team Status: Inactive Member Role/Relationship Status Dates Dr. Mackenzie Fink MD Primary Care Provider Active Start: April 02, 2025 End: April 02, 2025 Dr. Theo Richard MD Attending Provider Active Start: April 02, 2025 End: April 02, 2025 Dr. Theo Richard MD Referring Provider Active Start: April 02, 2025 End: April 02, 2025 Team Status: Active Member Role/Relationship Status Dates Dr. Mackenzie Fink MD Primary Care Provider Active Start: April 02, 2025 Dr. Theo Richard MD Attending Provider Active Start: April 02, 2025 Dr. Theo Richard MD Referring Provider Active Start: April 02, 2025 Dr. Theo Richard MD Other Provider Active Start: April 02, 2025 Team Status: Inactive Member Role/Relationship Status Dates Dr. Mackenzie Fink MD Primary Care Provider Active Start: April 04, 2025 End: April 04, 2025 Dr. Mackenzie Fink MD Referring Provider Active Start: April 04, 2025 End: April 04, 2025 Delmis Corral CORE MANAGER, CORE MANAGER-C Attending Provider Active Start: April 04, 2025 End: April 04, 2025 Team Status: Inactive Member Role/Relationship Status Dates Dr. Mackenzie Fink MD Primary Care Provider Active Start: April 18, 2025 End: April 18, 2025 Dr. Mackenzie Fink MD Referring Provider Active Start: April 18, 2025 End: April 18, 2025 Keron Ross CORE MANAGER, CORE MANAGER-C Attending Provider Active S tart: April 18, 2025 End: April 18, 2025 Team Status: Inactive Member Role/Relationship Status Dates Dr. Mackenzie Fink MD Primary Care Provider Active Start: April 19, 2025 End: April 19, 2025 Dr. Mackenzie Fink MD Referring Provider Active Start: April 19, 2025 End: April 19, 2025 Dr. Imani Persaud MD Attending Provider Active Start: April 19, 2025 End: April 19, 2025 Team Status: Inactive Member Role/Relationship Status Dates Dr. Mackenzie Fink MD Primary Care Provider Active Start: April 26, 2025 End: April 26, 2025 Dr. Mackenzie Fink MD Referring Provider Active Start: April 26, 2025 End: April 26, 2025 Dr. Imani Persaud MD Attending Provider Active Start: April 26, 2025 End: April 26, 2025 Team Status: Inactive Member Role/Relationship Status Dates Dr. Mackenzie Fink MD Primary Care Provider Active Start: April 28, 2025 End: April 28, 2025 Dr. Girish Mcgarry DO Attending Provider Active Start: April 28, 2025 End: April 28, 2025 Dr. Girish Mcgarry DO Emergency Provider Active Start: April 28, 2025 End: April 28, 2025 Team Status: Inactive Member Role/Relationship Status Dates Dr. Mackenzie Fink MD Primary Care Provider Active Start: May 03, 2025 End: May 03, 2025 Dr. Mackenzie Fink MD Referring Provider Active Start: May 03, 2025 End: May 03, 2025 Delmis Corral CORE MANAGER, CORE MANAGER-C Attending Provider Active Start: May 03, 2025 End: May 03, 2025 Team Status: Inactive Member Role/Relationship Status Dates Dr. Mackenzie Fink MD Primary Care Provider Active Start: May 04, 2025 End: May 04, 2025 Dr. Girish Mcgarry DO Attending Provider Active Start: May 04, 2025 End: May 04, 2025 Dr. Girish Mcgarry DO Emergency Provider Active Start: May 04, 2025 End: May 04, 2025 Team Status: Inactive Member Role/Relationship Status Dates Dr. Mackenzie Fink MD Primary Care Provider Active Start: May 10, 2025 End: May 10, 2025 Dr. Mackenzie Fink MD Referring Provider Active Start: May 10, 2025 End: May 10, 2025 Delmis Corral CORE MANAGER, CORE MANAGER-C Attending Provider Active Start: May 10, 2025 End: May 10, 2025 Team Status: Inactive Member Role/Relationship Status Dates Dr. Mackenzie Fink MD Primary Care Provider Active Start: May 17, 2025 End: May 17, 2025 Dr. Mackenzie Fink MD Referring Provider Active Start: May 17, 2025 End: May 17, 2025 Dr. Imani Persaud MD Attending Provider Active Start: May 17, 2025 End: May 17, 2025 Team Status: Active Member Role/Relationship Status Dates Dr. Mackenzie Fink MD Primary Care Provider Active Start: May 17, 2025 Dr. Imani Persaud MD Attending Provider Active Start: May 17, 2025 Dr. Imani Persaud MD Referring Provider Active Start: May 17, 2025 Team Status: Inactive Member Role/Relationship Status Dates Dr. Mackenzie Fink MD Primary Care Provider Active Start: May 31, 2025 End: May 31, 2025 Dr. Mackenzie Fink MD Referring Provider Active Start: May 31, 2025 End: May 31, 2025 Delmis Corral CORE MANAGER, CORE MANAGER-C Attending Provider Active Start: May 31, 2025 End: May 31, 2025 Team Status: Active Member Role/Relationship Status Dates Dr. Mackenzie Fink MD Primary Care Provider Active Start: May 31, 2025 Dr. Imani Persaud MD Attending Provider Active Start: May 31, 2025 Dr. Imani Persaud MD Referring Provider Active Start: May 31, 2025 Team Status: Active Member Role/Relationship Status Dates Dr. Mackenzie Fink MD Primary Care Provider Active Start: June 07, 2025 Dr. Imani Persaud MD Attending Provider Active Start: June 07, 2025 Dr. Imani Persaud MD Referring Provider Active Start: June 07, 2025 Team Status: Inactive Member Role/Relationship Status Dates Dr. Mackenzie Fink MD Primary Care Provider Active Start: June 07, 2025 End: June 07, 2025 Dr. Mackenzie Fink MD Referring Provider Active Start: June 07, 2025 End: June 07, 2025 Delmis Shayna CORE MANAGER, CORE MANAGER-C Attending Provider Active Start: June 07, 2025 End: June 07, 2025 Team Status: Inactive Member Role/Relationship Status Dates Dr. Mackenzie Fink MD Primary Care Provider Active Start: June 08, 2025 End: June 08, 2025 Delmis Shayna CORE MANAGER, CORE MANAGER-C Attending Provider Active Start: June 08, 2025 End: June 08, 2025 Delmis Shayna CORE MANAGER, CORE MANAGER-C Referring Provider Active Start: June 08, 2025 End: June 08, 2025 Team Status: Inactive Member Role/Relationship Status Dates Dr. Mackenzie Fink MD Primary Care Provider Active Start: June 07, 2025 End: June 07, 2025 Dr. Mackenzie Fink MD Referring Provider Active Start: June 07, 2025 End: June 07, 2025 Delmis Shayna CORE MANAGER, CORE MANAGER-C Attending Provider Active Start: June 07, 2025 End: June 07, 2025 Team Status: Inactive Member Role/Relationship Status Dates Dr. Mackenzie Fink MD Primary Care Provider Active Start: June 08, 2025 End: June 08, 2025 Delmis Shayna CORE MANAGER, CORE MANAGER-C Attending Provider Active Start: June 08, 2025 End: June 08, 2025 Delmis Shayna CORE MANAGER, CORE MANAGER-C Referring Provider Active Start: June 08, 2025 End: June 08, 2025 Team Status: Inactive Member Role/Relationship Status Dates Dr. Mackenzie Fink MD Primary Care Provider Active Start: June 14, 2025 End: June 14, 2025 Dr. Mackenzie Fink MD Referring Provider Active Start: June 14, 2025 End: June 14, 2025 Dr. Richi Moore MD Attending Provider Active S tart: June 14, 2025 End: June 14, 2025 Team Status: Active Member Role/Relationship Status Dates Dr. Mackenzie Fink MD Primary Care Provider Active Start: June 14, 2025 Dr. Imani Persaud MD Attending Provider Active Start: June 14, 2025 Dr. Imani Persaud MD Referring Provider Active Start: June 14, 2025 Team Status: Inactive Member Role/Relationship Status Dates Dr. Mackenzie Fink MD Primary Care Provider Active Start: March 26, 2025 End: March 26, 2025 Dr. Mackenzie Fink MD Referring Provider Active Start: March 26, 2025 End: March 26, 2025 Dr. Theo Richard MD Attending Provider Active Start: March 26, 2025 End: March 26, 2025 Team Status: Inactive Member Role/Relationship Status Dates Dr. Mackenzie Fink MD Primary Care Provider Active Start: March 26, 2025 End: March 26, 2025 Dr. Imani Persaud MD Attending Provider Active Start: March 26, 2025 End: March 26, 2025 Dr. Imani Persaud MD Referring Provider Active Start: March 26, 2025 End: March 26, 2025 Team Status: Inactive Member Role/Relationship Status Dates Dr. Mackenzie Fink MD Primary Care Provider Active Start: March 28, 2025 End: March 28, 2025 Dr. Mackenzie Fink MD Referring Provider Active Start: March 28, 2025 End: March 28, 2025 Dr. Imani Persaud MD Attending Provider Active Start: March 28, 2025 End: March 28, 2025 Team Status: Inactive Member Role/Relationship Status Dates Dr. Mackenzie Fink MD Primary Care Provider Active Start: April 02, 2025 End: April 02, 2025 Dr. Theo Richard MD Attending Provider Active Start: April 02, 2025 End: April 02, 2025 Dr. Theo Richard MD Referring Provider Active Start: April 02, 2025 End: April 02, 2025 Team Status: Active Member Role/Relationship Status Dates Dr. Mackenzie Fink MD Primary Care Provider Active Start: April 02, 2025 Dr. Theo Richard MD Attending Provider Active Start: April 02, 2025 Dr. Theo Richard MD Referring Provider Active Start: April 02, 2025 Dr. Theo Richard MD Other Provider Active Start: April 02, 2025 Team Status: Inactive Member Role/Relationship Status Dates Dr. Mackenzie Fink MD Primary Care Provider Active Start: April 04, 2025 End: April 04, 2025 Dr. Mackenzie Fink MD Referring Provider Active Start: April 04, 2025 End: April 04, 2025 Delmis Corral CORE MANAGER, CORE MANAGER-C Attending Provider Active Start: April 04, 2025 End: April 04, 2025 Team Status: Inactive Member Role/Relationship Status Dates Dr. Mackenzie Fink MD Primary Care Provider Active Start: April 18, 2025 End: April 18, 2025 Dr. Mackenzie Fink MD Referring Provider Active Start: April 18, 2025 End: April 18, 2025 Keron Ross CORE MANAGER, CORE MANAGER-C Attending Provider Active S tart: April 18, 2025 End: April 18, 2025 Team Status: Inactive Member Role/Relationship Status Dates Dr. Mackenzie Fink MD Primary Care Provider Active Start: April 19, 2025 End: April 19, 2025 Dr. Mackenzie Fink MD Referring Provider Active Start: April 19, 2025 End: April 19, 2025 Dr. Imani Persaud MD Attending Provider Active Start: April 19, 2025 End: April 19, 2025 Team Status: Inactive Member Role/Relationship Status Dates Dr. Mackenzie Fink MD Primary Care Provider Active Start: April 26, 2025 End: April 26, 2025 Dr. Mackenzie Fink MD Referring Provider Active Start: April 26, 2025 End: April 26, 2025 Dr. Imani Persaud MD Attending Provider Active Start: April 26, 2025 End: April 26, 2025 Team Status: Inactive Member Role/Relationship Status Dates Dr. Mackenzie Fink MD Primary Care Provider Active Start: April 28, 2025 End: April 28, 2025 Dr. Girish Mcgarry DO Attending Provider Active Start: April 28, 2025 End: April 28, 2025 Dr. Girish Mcgarry DO Emergency Provider Active Start: April 28, 2025 End: April 28, 2025 Team Status: Inactive Member Role/Relationship Status Dates Dr. Mackenzie Fink MD Primary Care Provider Active Start: May 03, 2025 End: May 03, 2025 Dr. Mackenzie Fink MD Referring Provider Active Start: May 03, 2025 End: May 03, 2025 Delmis Corral CORE MANAGER, CORE MANAGER-C Attending Provider Active Start: May 03, 2025 End: May 03, 2025 Team Status: Inactive Member Role/Relationship Status Dates Dr. Mackenzie Fink MD Primary Care Provider Active Start: May 04, 2025 End: May 04, 2025 Dr. Girish Mcgarry DO Attending Provider Active Start: May 04, 2025 End: May 04, 2025 Dr. Girish Mcgarry DO Emergency Provider Active Start: May 04, 2025 End: May 04, 2025 Team Status: Inactive Member Role/Relationship Status Dates Dr. Mackenzie Fink MD Primary Care Provider Active Start: May 10, 2025 End: May 10, 2025 Dr. Mackenzie Fink MD Referring Provider Active Start: May 10, 2025 End: May 10, 2025 Delmis Shayna CORE MANAGER, CORE MANAGER-C Attending Provider Active Start: May 10, 2025 End: May 10, 2025 Team Status: Inactive Member Role/Relationship Status Dates Dr. Mackenzie Fink MD Primary Care Provider Active Start: May 17, 2025 End: May 17, 2025 Dr. Mackenzie Fink MD Referring Provider Active Start: May 17, 2025 End: May 17, 2025 Dr. Imani Persaud MD Attending Provider Active Start: May 17, 2025 End: May 17, 2025 Team Status: Inactive Member Role/Relationship Status Dates Dr. Mackenzie Fink MD Primary Care Provider Active Start: May 31, 2025 End: May 31, 2025 Dr. Mackenzie Fink MD Referring Provider Active Start: May 31, 2025 End: May 31, 2025 Delmis Shayna CORE MANAGER, CORE MANAGER-C Attending Provider Active Start: May 31, 2025 End: May 31, 2025 Team Status: Inactive Member Role/Relationship Status Dates Dr. Mackenzie Fink MD Primary Care Provider Active Start: June 07, 2025 End: June 07, 2025 Dr. Mackenzie Fink MD Referring Provider Active Start: June 07, 2025 End: June 07, 2025 Delmis Shayna CORE MANAGER, CORE MANAGER-C Attending Provider Active Start: June 07, 2025 End: June 07, 2025 Team Status: Inactive Member Role/Relationship Status Dates Dr. Mackenzie Fnik MD Primary Care Provider Active Start: June 08, 2025 End: June 08, 2025 Delmis Shayna CORE MANAGER, CORE MANAGER-C Attending Provider Active Start: June 08, 2025 End: June 08, 2025 Delmis Shayna CORE MANAGER, CORE MANAGER-C Referring Provider Active Start: June 08, 2025 End: June 08, 2025 Team Status: Inactive Member Role/Relationship Status Dates Dr. Mackenzie Fink MD Primary Care Provider Active Start: June 14, 2025 End: June 14, 2025 Dr. Mackenzie Fink MD Referring Provider Active Start: June 14, 2025 End: June 14, 2025 Dr. Richi Moore MD Attending Provider Active S tart: June 14, 2025 End: June 14, 2025 Team Status: Inactive Member Role/Relationship Status Dates Dr. Mackenzie Fink MD Primary Care Provider Active Start: June 28, 2025 End: June 28, 2025 Dr. Mackenzie Fink MD Referring Provider Active Start: June 28, 2025 End: June 28, 2025 Dr. Imani Persaud MD Attending Provider Active Start: June 28, 2025 End: June 28, 2025 Team Status: Active Member Role/Relationship Status Dates Dr. Mackenzie Fink MD Primary Care Provider Active Start: June 28, 2025 Dr. Imani Persaud MD Attending Provider Active Start: June 28, 2025 Dr. Imani Persaud MD Referring Provider Active Start: June 28, 2025 Team Status: Inactive Member Role/Relationship Status Dates Dr. Mackenzie Fink MD Primary Care Provider Active Start: July 12, 2025 End: July 12, 2025 Dr. Mackenzie Fink MD Referring Provider Active Start: July 12, 2025 End: July 12, 2025 Delmis Corral CORE MANAGER, CORE MANAGER-C Attending Provider Active Start: July 12, 2025 End: July 12, 2025 Team Status: Active Member Role/Relationship Status Dates Dr. Mackenzie Fink MD Primary Care Provider Active Start: July 12, 2025 Dr. Imani Persaud MD Attending Provider Active Start: July 12, 2025 Dr. Imani Persaud MD Referring Provider Active Start: July 12, 2025 Team Status: Active Member Role/Relationship Status Dates Dr. Mackenzie Fink MD Primary Care Provider Active Start: July 16, 2025 Dr. Bj Waddell DO Emergency Provider Activ e Start: July 16, 2025 Dr. Barbie Cross MD Admit Provider Active Star t: July 16, 2025 Dr. Barbie Cross MD Attending Provider Active Start: July 16, 2025 Dr. Barbie Cross MD Other Provider Active Star t: July 16, 2025 Team Status: Inactive Member Role/Relationship Status Dates Dr. Mackenzie Fink MD Primary Care Provider Active Start: July 16, 2025 End: July 18, 2025 Dr. Bj Waddell DO Emergency Provider Activ e Start: July 16, 2025 End: July 18, 2025 Dr. Barbie Cross MD Admit Provider Active Star t: July 16, 2025 End: July 18, 2025 Dr. Barbie Cross MD Other Provider Active Star t: July 16, 2025 End: July 18, 2025 Dr. Kelli Sung MD Attending Provider Active Start: July 16, 2025 End: July 18, 2025 Team Status: Active Member Role/Relationship Status Dates Dr. Mackenzie Fink MD Primary Care Provider Active Start: July 17, 2025 Dr. Naldo Valencia MD Attending Provider Active Start: July 17, 2025 Team Status: Active Member Role/Relationship Status Dates Dr. Mackenzie Fink MD Primary Care Provider Active Start: July 17, 2025 Dr. Bj Waddell DO Emergency Provider Activ e Start: July 17, 2025 Dr. Barbie Corss MD Admit Provider Active Star t: July 17, 2025 Dr. Barbie Cross MD Other Provider Active Star t: July 17, 2025 Dr. Kelli Sung MD Attending Provider Active Start: July 17, 2025 Dr. Kelli Sung MD Other Provider Active St art: July 17, 2025 Team Status: Inactive Member Role/Relationship Status Dates Dr. Mackenzie Fink MD Primary Care Provider Active Start: July 16, 2025 End: July 18, 2025 Dr. Bj Waddell DO Emergency Provider Activ e Start: July 16, 2025 End: July 18, 2025 Dr. Barbie Cross MD Admit Provider Active Star t: July 16, 2025 End: July 18, 2025 Dr. Barbie Cross MD Other Provider Active Star t: July 16, 2025 End: July 18, 2025 Dr. Kelli Sung MD Attending Provider Active Start: July 16, 2025 End: July 18, 2025 Team Status: Active Member Role/Relationship Status Dates Dr. Mackenzie Fink MD Primary Care Provider Active Start: July 17, 2025 Dr. Naldo Valencia MD Attending Provider Active Start: July 17, 2025 Team Status: Active Member Role/Relationship Status Dates Dr. Mackenzie Fink MD Primary Care Provider Active Start: July 17, 2025 Dr. Bj Waddell DO Emergency Provider Activ e Start: July 17, 2025 Dr. Barbie Cross MD Admit Provider Active Star t: July 17, 2025 Dr. Barbie Cross MD Other Provider Active Star t: July 17, 2025 Dr. Kelli Sung MD Attending Provider Active Start: July 17, 2025 Dr. Kelli Sung MD Other Provider Active St art: July 17, 2025 Team Status: Active Member Role/Relationship Status Dates Dr. Mackenzie Fink MD Primary Care Provider Active Start: July 19, 2025 Dr. Imani Persaud MD Attending Provider Active Start: July 19, 2025 Dr. Imani Persaud MD Referring Provider Active Start: July 19, 2025 Team Status: Inactive Member Role/Relationship Status Dates Dr. Mackenzie Fink MD Primary Care Provider Active Start: July 19, 2025 End: July 19, 2025 Dr. Mackenzie Fink MD Referring Provider Active Start: July 19, 2025 End: July 19, 2025 Dr. Imani Persaud MD Attending Provider Active Start: July 19, 2025 End: July 19, 2025 Team Status: Active Member Role/Relationship Status Dates Dr. Mackenzie Fink MD Primary care physician Active Team Status: Inactive Member Role/Relationship Status Dates Dr. Mackenzie Fink MD Primary care physician Active Start: April 18, 2025 End: April 18, 2025 Dr. Mackenzie Fink MD Referring Provider Active Start: April 18, 2025 End: April 18, 2025 Keron Ross CORE MANAGER, CORE MANAGER-C Attending physician Active Start: April 18, 2025 End: April 18, 2025 Team Status: Inactive Member Role/Relationship Status Dates Dr. Mackenzie Fink MD Primary care physician Active Start: April 19, 2025 End: April 19, 2025 Dr. Mackenzie Fink MD Referring Provider Active Start: April 19, 2025 End: April 19, 2025 Dr. Imani Persaud MD Attending physician Active Start: April 19, 2025 End: April 19, 2025 Team Status: Inactive Member Role/Relationship Status Dates Dr. Mackenzie Fink MD Primary care physician Active Start: April 26, 2025 End: April 26, 2025 Dr. Mackenzie Fink MD Referring Provider Active Start: April 26, 2025 End: April 26, 2025 Dr. Imani Persaud MD Attending physician Active Start: April 26, 2025 End: April 26, 2025 Team Status: Inactive Member Role/Relationship Status Dates Dr. Mackenzie Fink MD Primary care physician Active Start: April 28, 2025 End: April 28, 2025 Dr. Girish Mcgarry DO Attending physician Active Start: April 28, 2025 End: April 28, 2025 Dr. Girish Mcgarry DO Emergency Department Physician Active Start: April 28, 2025 End: April 28, 2025 Team Status: Inactive Member Role/Relationship Status Dates Dr. Mackenzie Fink MD Primary care physician Active Start: May 03, 2025 End: May 03, 2025 Dr. Mackenzie Fink MD Referring Provider Active Start: May 03, 2025 End: May 03, 2025 Delmis Corral NP, CORE MANAGER-C Attending physician Active Start: May 03, 2025 End: May 03, 2025 Team Status: Inactive Member Role/Relationship Status Dates Dr. Mackenzie Fink MD Primary care physician Active Start: May 04, 2025 End: May 04, 2025 Dr. Girish Mcgarry DO Attending physician Active Start: May 04, 2025 End: May 04, 2025 Dr. Girish Mcgarry DO Emergency Department Physician Active Start: May 04, 2025 End: May 04, 2025 Team Status: Inactive Member Role/Relationship Status Dates Dr. Mackenzie Fink MD Primary care physician Active Start: May 10, 2025 End: May 10, 2025 Dr. Mackenzie Fink MD Referring Provider Active Start: May 10, 2025 End: May 10, 2025 Delmis Corral NP, CORE MANAGER-C Attending physician Active Start: May 10, 2025 End: May 10, 2025 Team Status: Inactive Member Role/Relationship Status Dates Dr. Mackenzie Fink MD Primary care physician Active Start: May 17, 2025 End: May 17, 2025 Dr. Mackenzie Fink MD Referring Provider Active Start: May 17, 2025 End: May 17, 2025 Dr. Imani Persaud MD Attending physician Active Start: May 17, 2025 End: May 17, 2025 Team Status: Inactive Member Role/Relationship Status Dates Dr. Mackenzie Fink MD Primary care physician Active Start: May 31, 2025 End: May 31, 2025 Dr. Mackenzie Fink MD Referring Provider Active Start: May 31, 2025 End: May 31, 2025 Delmis Shayna CORE MANAGER, CORE MANAGER-C Attending physician Active Start: May 31, 2025 End: May 31, 2025 Team Status: Inactive Member Role/Relationship Status Dates Dr. Mackenzie Fink MD Primary care physician Active Start: June 07, 2025 End: June 07, 2025 Dr. Mackenzie Fink MD Referring Provider Active Start: June 07, 2025 End: June 07, 2025 Delmisdavid Corral CORE MANAGER, CORE MANAGER-C Attending physician Active Start: June 07, 2025 End: June 07, 2025 Team Status: Inactive Member Role/Relationship Status Dates Dr. Mackenzie Fink MD Primary care physician Active Start: June 08, 2025 End: June 08, 2025 Delmis Shayna CORE MANAGER, CORE MANAGER-C Attending physician Active Start: June 08, 2025 End: June 08, 2025 Delmis Shayna CORE MANAGER, CORE MANAGER-C Referring Provider Active Start: June 08, 2025 End: June 08, 2025 Team Status: Inactive Member Role/Relationship Status Dates Dr. Mackenzie Fink MD Primary care physician Active Start: June 14, 2025 End: June 14, 2025 Dr. Mackenzie Fink MD Referring Provider Active Start: June 14, 2025 End: June 14, 2025 Dr. Richi Moore MD Attending physician Active Start: June 14, 2025 End: June 14, 2025 Team Status: Inactive Member Role/Relationship Status Dates Dr. Mackenzie Fink MD Primary care physician Active Start: June 28, 2025 End: June 28, 2025 Dr. Mackenzie Fink MD Referring Provider Active Start: June 28, 2025 End: June 28, 2025 Dr. Imani Persaud MD Attending physician Active Start: June 28, 2025 End: June 28, 2025 Team Status: Inactive Member Role/Relationship Status Dates Dr. Mackenzie Fink MD Primary care physician Active Start: July 12, 2025 End: July 12, 2025 Dr. Mackenzie Fink MD Referring Provider Active Start: July 12, 2025 End: July 12, 2025 Delmis Corral CORE MANAGER, CORE MANAGER-C Attending physician Active Start: July 12, 2025 End: July 12, 2025 Team Status: Inactive Member Role/Relationship Status Dates Dr. Mackenzie Fink MD Primary care physician Active Start: July 16, 2025 End: July 18, 2025 Dr. Bj Waddell , DO Emergency Department Physician Active Start: July 16, 2025 End: July 18, 2025 Dr. Barbie Cross MD Admitting physician Active Start: July 16, 2025 End: July 18, 2025 Dr. Barbie Cross MD Nurse Practitioner Active Start: July 16, 2025 End: July 18, 2025 Dr. Kelli Sung MD Attending physician Active Start: July 16, 2025 End: July 18, 2025 Team Status: Active Member Role/Relationship Status Dates Dr. Mackenzie Fink MD Primary care physician Active Start: July 17, 2025 Dr. Naldo Valencia MD Attending physician Active Start: July 17, 2025 Team Status: Active Member Role/Relationship Status Dates Dr. Mackenzie Fink MD Primary care physician Active Start: July 17, 2025 Dr. Bj Waddell DO Emergency Department Physician Active Start: July 17, 2025 Dr. Barbie Cross MD Admitting physician Active Start: July 17, 2025 Dr. Barbie Cross MD Nurse Practitioner Active Start: July 17, 2025 Dr. Kelli Sung MD Attending physician Active Start: July 17, 2025 Dr. Kelli Sung MD Nurse Practitioner Active Start: July 17, 2025 Team Status: Active Member Role/Relationship Status Dates Dr. Mackenzie Fink MD Primary care physician Active Start: July 18, 2025 Dr. Bj Waddell DO Emergency Department Physician Active Start: July 18, 2025 Dr. Barbie Cross MD Admitting physician Active Start: July 18, 2025 Dr. Barbie Cross MD Nurse Practitioner Active Start: July 18, 2025 Dr. Kelli Sung MD Attending physician Active Start: July 18, 2025 Dr. Kelli Sung MD Nurse Practitioner Active Start: July 18, 2025 Team Status: Active Member Role/Relationship Status Dates Dr. Mackenzie Fink MD Primary care physician Active Start: July 19, 2025 Dr. Imani Persaud MD Attending physician Active Start: July 19, 2025 Dr. Imani Persaud MD Referring Provider Active Start: July 19, 2025 Team Status: Inactive Member Role/Relationship Status Dates Dr. Mackenzie Fink MD Primary care physician Active Start: July 19, 2025 End: July 19, 2025 Dr. Mackenzie Fink MD Referring Provider Active Start: July 19, 2025 End: July 19, 2025 Dr. Imani Persaud MD Attending physician Active Start: July 19, 2025 End: July 19, 2025 Team Status: Inactive Member Role/Relationship Status Dates Dr. Mackenzie Fink MD Primary care physician Active Start: August 09, 2025 End: August 09, 2025 Dr. Mackenzie Fink MD Referring Provider Active Start: August 09, 2025 End: August 09, 2025 Delmis Corral CORE MANAGER, CORE MANAGER-C Attending physician Active Start: August 09, 2025 End: August 09, 2025 Team Status: Active Member Role/Relationship Status Dates Dr. Mackenzie Fink MD Primary care physician Active Start: August 09, 2025 Dr. Imani Persaud MD Attending physician Active Start: August 09, 2025 Dr. Imani Persaud MD Referring Provider Active Start: August 09, 2025 Delmis Corral CORE MANAGER, CORE MANAGER-C Nurse Practitioner Active Start: August 09, 2025 Team Status: Active Member Role/Relationship Status Dates Dr. Mackenzie Fink MD Primary care physician Active Start: August 09, 2025 Dr. Chema Paulino MD Attending physician Active Start: August 09, 2025 Team Status: Inactive Member Role/Relationship Status Dates Dr. Mackenzie Fink MD Primary care physician Active Start: July 19, 2025 End: July 19, 2025 Dr. Mackenzie Fink MD Referring Provider Active Start: July 19, 2025 End: July 19, 2025 Dr. Imani Persaud MD Attending physician Active Start: July 19, 2025 End: July 19, 2025 Team Status: Inactive Member Role/Relationship Status Dates Dr. Mackenzie Fink MD Primary care physician Active Start: August 09, 2025 End: August 09, 2025 Dr. Mackenzie Fink MD Referring Provider Active Start: August 09, 2025 End: August 09, 2025 Delmis Corral NP, CORE MANAGER-C Attending physician Active Start: August 09, 2025 End: August 09, 2025 Team Status: Inactive Member Role/Relationship Status Dates Dr. Mackenzie Fink MD Primary care physician Active Start: August 09, 2025 End: August 09, 2025 Dr. Imani Persaud MD Attending physician Active Start: August 09, 2025 End: August 09, 2025 Dr. Imani Persaud MD Referring Provider Active Start: August 09, 2025 End: August 09, 2025 Delmis Corral NP, CORE MANAGER-C Nurse Practitioner Active Start: August 09, 2025 End: August 09, 2025 Team Status: Active Member Role/Relationship Status Dates Dr. Mackenzie Fink MD Primary care physician Active Start: August 09, 2025 Dr. Chema Paulino MD Attending physician Active Start: August 09, 2025 Team Status: Active Member Role/Relationship Status Dates Dr. Mackenzie Fink MD Primary care physician Active Start: August 16, 2025 Dr. Imani Persaud MD Attending physician Active Start: August 16, 2025 Dr. Imani Persaud MD Referring Provider Active Start: August 16, 2025 Team Status: Inactive Member Role/Relationship Status Dates Dr. Mackenzie Fink MD Primary care physician Active Start: August 16, 2025 End: August 16, 2025 Dr. Mackenzie Fink MD Referring Provider Active Start: August 16, 2025 End: August 16, 2025 Dr. Imani Persaud MD Attending physician Active Start: August 16, 2025 End: August 16, 2025 Scheduled Active and Recently Administ ered [...] Hickman RN) 0913 (Given - Provider: Gladis Rubalcava RN) ketorolac (Toradol) injection 30 mg (COMPLETED) 30 [...] RN) 0914 (Given - Provider: Gladis Rubalcava, RN) [...] sedation for opioid reversal - MUST notify community recreation coordinator provider immediately after first dose, may give [...] content) DATE CREATED AUTHOR 02/16/2025 [facility] DATE CREATED AUTHOR AUTHOR'S ORGANIZ ATION 02/17/2025 [facility] [facility] DATE CREATED AUTHOR AUTHOR'S ORGANIZ ATION 05/09/2025 [facility] DATE CREATED AUTHOR AUTHOR'S ORGANIZ ATION 09/23/2025 [facility] FOR RECORDS PERTAINING TO PATIENTS WHO [...] BE BASED ON THE PRIMARY CLINICAL RECORDS. [facility]. provides no warranty or guarantee of the accuracy or completeness of information in this document.
--- NOTE | 2025-11-06 08:00 | BI_ITS ---
EXAM: SCRN MAMM (CAD)W/ALFONSO BILAT DATE: 11/06/2025 CLINICAL HISTORY: F, Age 55 y/o , SCREENING TECHNIQUE: Procedure Code: [id number] Modality: MG Procedure: SCRN MAMM (CAD)W/ALFONSO BILAT COMPARISON: Prior exam(s) were compared FINDINGS: TISSUE DENSITY: There are scattered areas of fibroglandular density. Bilateral Breast Mammographic Findings: No significant masses, calcifications or other abnormalities are identified. BI/SCRN MAMM (CAD)W/ALFONSO BILAT IMPRESSION: No mammographic evidence of malignancy. OVERALL FINAL ASSESSMENT BI-RADS 1: NEGATIVE. RECOMMENDATION: Routine annual follow-up in 1 Year Additional Recommendation none A letter with findings and recommendations will be mailed to the patient. Reading Location: [id number]
== END | disposition home or self-care (01) ==
LOC: OPBD 07:29
PROVIDERS: PCP Family Medicine; Referring Provider Nurse Practitioner Family; Visit Provider Nurse Practitioner Family
DX: Z12.31 Encounter for screening mammogram for malignant neoplasm of breast (principal); Z78.0 Asymptomatic menopausal state; Z13.820 Encounter for screening for osteoporosis
CPT/HCPCS: 77063; 77067; 77080